=== PATIENT | female | born 1940 | race Caucasian/White ===

== ENCOUNTER 2016-04-06 06:36 | Inpatient (IN) | payer MEDICARE, MEDICAID ==
[2016-04-06] VITALS (16 sets, daily range): BP systolic 85–130; BP diastolic 42–92
[~2016-04-06] VITALS: Ht 172.7 cm; Wt 158.8 kg
[~2016-04-06 06:36] MED LIST: Vancomycin 1gm inj IVPB ONE
[2016-04-06] MEDS ORDERED: Albuterol ud Inhalation HHN SCH (06:45)
[2016-04-06] MEDS ORDERED: Ipratropium 0.02% Inh Soln 2.5ml UD HHN SCH (06:45)
[2016-04-06] MEDS ORDERED: Solu-MEDROL 125mg Inj IVP ONE (06:45)
[2016-04-06] MEDS ORDERED: Vancomycin 1 GM in NS 275 ML IV ONE (06:45)
--- NOTE | 2016-04-06 06:49 | Emergency Room Report ---
History of Present Illness General Chief Complaint: Dyspnea/Respdistress Source: Medical Record, EMS Present Illness HPI Ms. Ovalles, and 75-year-old female brought in from convalescent home. Reportedly admitted therefore failure to thrive, left lower leg cellulitis with respiratory failure, hypercapnia. Per records also has a history of COPD, congestive heart failure, pulmonary hypertension, morbid obesity and weighed greater than 300 pounds. Patient also is history of respiratory failure. Patient herself is unable to provide history, all history from EMS reports hypoxia, patient placed on nonrebreather mask, no IV started in the field, saturations reported 82% with tachypnea reported. Patient herself is unable to provide any review of systems either due to her significant illness. Allergies: Coded Allergies: AMOXICILLIN (Verified Allergy, Mild, RASH, 12/25/09) PENICILLINS (Unverified Allergy, Unknown, 04/06/16) Patient History Limited by: medical condition - severely ill Past Medical History: see triage record, CAD, CHF, AFib, arrhyth, COPD Past Surgical History: unable to obtain Pertinent Family History: unable to obtain Social History: Denies: alcohol use, drug use, smoking Last Menstrual Period: NONE Now: No Reviewed Nursing Documentation: PMH: Agreed Nursing Documentation-PMH Hx Hypertension: Yes - CHRONIA AFIB, ANEMIA, Hx COPD: Yes Hx Diabetes: Yes Review of Systems All Other Systems: limited - patient unable to provide. Physical Exam Vital Signs Date Time Temp Pulse Resp B/P Pulse Ox O2 Delivery O2 Flow Rate FiO2 04/06/16 06:30 107 26 155/133 83 Non-Rebreather 15.0 Sp02 EP Interpretation: abnormal - severe hypoxia General Appearance: severe distress, obese - morbid, Chronically Ill Eyes: bilateral eye PERRL ENT: dry mucus membranes Neck: supple, no carotid bruits, supple/symm/no masses Respiratory: respiratory distress, decreased breath sounds, accessory muscle use, chest symmetrical Cardiovascular #1: tachycardia, irregularly irregular Cardiovascular #2: 2+ carotid (R), 2+ carotid (L) Gastrointestinal: non tender, soft, no mass Musculoskeletal: non-tender Neurologic: responsive - to painful stimuli, loud verbal stimuli, oriented to name Skin: no rash, warm/dry, other - small ulceration on the left leg Procedures Critical Care Time Critical Care Time 66 minutes occurred care time, excluding procedures, based on significant illness, treatment, review of records, this resuscitation, physical history and discussion with consultants and admission to the hospital. Intubation Intubation : Consent: Emergent Time of Intubation: 07:30 Intubation Method: orotracheal Tube Size (cm): 7.0 Medications: Etomidate, Succinylcholine Breath Sounds after Intubation: equal Intubation Complications: no complications Post Intubation Xray: Yes Attempts: One Complications: Other - minor lip laceration Medical Decision Making Diagnostic Impression: Primary Impression: Acute respiratory failure with hypoxia and hypercarbia Additional Impressions: Dyspnea Respiratory distress Hypoxia Respiratory failure Morbid obesity COPD exacerbation Atrial fibrillation with RVR Acute renal failure Hyperkalemia Congestive heart failure with cardiomyopathy and cardiomegaly Pleural effusion ER Course Patient met by myself and the embolus they do to significant illness. Patient transferred with assistance onto [facility] in trauma bay. Placed on monitors and some oxygen provided initially, I placed and EJ as well as IV by nursing and put on nonrebreather, BiPAP with minimal improvement. Basic labs sent out. Patient has significant hypoxia a monitor with a rate of 115 on her rhythm strip and it fibrillation with oxygen saturations around 91% though the patient is poorly controlling her airway and will probably require intubation. The patient has a history of COPD, CHF, as well as recent cellulitis and is institutionalized likely potential pneumonia as well as we'll start empiric antibiotics, COPD treatment with steroids and nebulizers. And support respiratory status aggressively. Patient labs demonstrated significant hypercarbia, acidosis, decision was made to intubate. I contacted anesthesia who came to the bedside for supervision, assistance. Patient was in today with a kaleidoscope without significant palpitations, minor slip laceration, bleeding controlled. Patient' s saturations have improved. Labs reveal significant renal failure, elevated white count, and signs of hyperkalemia, likely congestive heart failure. Patient will need ICU admission at this time with continued resuscitation with IV fluids, antibiotics, nebulizers and some aggressive ventilatory treatment. Patient postintubation x-ray pending. Laboratory Tests Test 04/06/16 06:35 04/06/16 07:00 White Blood Count 15.9 K/UL (4.8-10.8) H Red Blood Count 3.68 M/UL (4.20-5.40) L Hemoglobin 10.1 G/DL (12.0-16.0) L Hematocrit 33.5 % (37.0-47.0) L Mean Corpuscular Volume 91 FL (80-99) Mean Corpuscular Hemoglobin 27.3 PG (27.0-31.0) Mean Corpuscular Hemoglobin Concent 30.0 G/DL (32.0-36.0) L Red Cell Distribution Width 16.4 % (11.6-14.8) H Platelet Count 211 K/UL (150-450) Mean Platelet Volume 6.2 FL (6.5-10.1) L Neutrophils (%) (Auto) 77.9 % (45.0-75.0) H Lymphocytes (%) (Auto) 11.5 % (20.0-45.0) L Monocytes (%) (Auto) 8.9 % (1.0-10.0) Eosinophils (%) (Auto) 0.8 % (0.0-3.0) Basophils (%) (Auto) 0.9 % (0.0-2.0) Prothrombin Time 15.0 SEC (9.30-11.50) H Prothromb Time International Ratio 1.5 (0.9-1.1) H Activated Partial Thromboplast Time 26 SEC (23-33) Sodium Level 141 mEQ/L (135-145) Potassium Level 5.5 mEQ/L (3.4-4.9) H Chloride Level 94 mEQ/L (98-107) L Carbon Dioxide Level 34 mEQ/L (20-30) H Anion Gap 13 (5-15) Blood Urea Nitrogen 65 mg/dL (7-23) H Creatinine 2.4 mg/dL (0.5-0.9) H Estimat Glomerular Filtration Rate mL/min (>60) Glucose Level 117 mg/dL (74-106) H Lactic Acid Level 3.20 mmol/L (0.66-2.22) H Calcium Level 8.5 mg/dL (8.6-10.2) L Total Bilirubin 0.7 mg/dL (0.0-1.2) Aspartate Amino Transf (AST/SGOT) 49 U/L (5-40) H Alanine Aminotransferase (ALT/SGPT) 25 U/L (3-33) Alkaline Phosphatase 91 U/L (35-104) Total Creatine Kinase 79 U/L (26-140) Creatine Kinase MB 2.5 ng/mL (< 3.8) Creatine Kinase MB Relative Index 3.1 Troponin I < 0.30 ng/mL (<=0.30) Total Protein 7.8 g/dL (6.6-8.7) Albumin 3.8 g/dL (3.5-5.2) Globulin 4.0 g/dL Albumin/Globulin Ratio 0.9 (1.0-2.7) L Arterial Blood pH 7.140 (7.350-7.450) Arterial Blood Partial Pressure CO2 122.4 mmHg (35.0-45.0) *H Arterial Blood Partial Pressure O2 85.8 mmHg (75.0-100.0) Arterial Blood HCO3 41.1 mmol/L (22.0-26.0) H Arterial Blood Oxygen Saturation 93.4 % (92.0-98.0) Arterial Blood Base Excess 8.9 Mike Test Positive EKG Diagnostic Results EKG Time: 06:26 Rate: tachycardiac Rhythm: other - irregular rhythm Rhythm Strip Diag. Results Rhythm Strip Time: 06:40 EP Interpretation: yes Rate: 1:15 Rhythm: other - atrial fibrillation Chest X-Ray Diagnostic Results Time: 06:48 EP Interpretation: Yes Findings: other - severely rotated, cardiomegaly with likely pleural effusion and opacification on the RLL Number of Views: 1 Other X-Ray Diagnostic Results Other X-Ray Diagnostic Results : X-Ray Ordered: chest x-ray, post intubation Date: Apr 06, 2016 Time: 08:50 EP Interpretation: Yes Findings: other - slightly improved lung chirinos, ET tube in appropriate position Number of Views: 1 Reevaluation Time: 07:55 Last Vital Signs Date Time Temp Pulse Resp B/P Pulse Ox O2 Delivery O2 Flow Rate FiO2 04/06/16 06:30 107 26 155/133 83 Non-Rebreather 15.0 Status: improved Disposition: ADMITTED INPATIENT Admit Decision Time: 07:55 Condition: Critical Jak Clinton MD Apr 06, 2016 06:49
[2016-04-06 07:09] LABS: ABG PCO2 122.4 mmHg (35.0-45.0)
[2016-04-06 07:10] LABS: ABG ALLEN TEST POSITIVE; ABG BASE EXCESS 8.9
[2016-04-06] MEDS ORDERED: Naloxone 1mg/ml 2ml IVP ONE (07:15)
[2016-04-06 07:17] LABS: INR 1.5 (0.9-1.1)
[2016-04-06 07:19] LABS: ALANINE AMINOTRANSFERASE 25 U/L (3-33); ALBUMIN/GLOBULIN RATIO 0.9 (1.0-2.7); ANION GAP 13 (5-15); ASPARTATE AMINO TRANSFERASE 49 U/L (5-40); CALCIUM 8.5 mg/dL (8.6-10.2); CARBON DIOXIDE 34 mEQ/L (20-30); CHLORIDE 94 mEQ/L (98-107); CREATININE 2.4 mg/dL (0.5-0.9); HEMOLYSIS 3; POTASSIUM 5.5 mEQ/L (3.4-4.9); SODIUM 141 mEQ/L (135-145); TOTAL PROTEIN 7.8 g/dL (6.6-8.7); TROPONIN I < 0.30 ng/mL (<=0.30)
[2016-04-06 07:20] LABS: REFLEX LACTIC ACID YES OR NO YES
[2016-04-06 07:25] LABS: BASOPHILS % (AUTO) 0.9 % (0.0-2.0); EOSINOPHILS % (AUTO) 0.8 % (0.0-3.0); LYMPHOCYTES % (AUTO) 11.5 % (20.0-45.0); MEAN CORPUSCULAR HEMOGLOBIN 27.3 PG (27.0-31.0); MEAN CORPUSCULAR VOLUME 91 FL (80-99); MEAN PLATELET VOLUME 6.2 FL (6.5-10.1); MONOCYTES % (AUTO) 8.9 % (1.0-10.0); NEUTROPHILS % (AUTO) 77.9 % (45.0-75.0); PLATELET COUNT 211 K/UL (150-450); RED BLOOD COUNT 3.68 M/UL (4.20-5.40); RED CELL DISTRIBUTION WIDTH 16.4 % (11.6-14.8); WHITE BLOOD COUNT 15.9 K/UL (4.8-10.8)
[2016-04-06 07:31] LABS: CKMB 2.5 ng/mL (< 3.8)
[2016-04-06] MEDS ORDERED: Succinylcholine 20mg/ml 10ml vial IV ONE (08:00)
[2016-04-06] MEDS ORDERED: Etomidate 40mg/20ml Inj IV ONE ×2 (08:00→14:32)
[2016-04-06] MEDS ORDERED: ROCATROL0.25 MCG ORAL (08:57)
[2016-04-06] MEDS ORDERED: ELIQUIS2.5 MG PO (08:57)
[2016-04-06] MEDS ORDERED: OS-CAL1250 MG ORAL (08:57)
[2016-04-06] MEDS ORDERED: VITAMIN B-122000 MC1 PO (08:58)
[2016-04-06] MEDS ORDERED: VITAMIN B-12500 MCG ORAL (08:58)
[2016-04-06] MEDS ORDERED: FOLIC ACID1 MG ORAL (09:00)
[2016-04-06] MEDS ORDERED: FLUTICASONE PRO16 G1 NASAL (09:00)
[2016-04-06] MEDS ORDERED: FUROSEMIDE40 MG ORAL (09:00)
[2016-04-06] MEDS ORDERED: DOCUSATE SODIU100 MG ORAL (09:00)
[2016-04-06] MEDS ORDERED: PROBIOTIC1 EAC2 PO (09:02)
[2016-04-06] MEDS ORDERED: FEMARA2.5 MG ORAL (09:02)
[2016-04-06] MEDS ORDERED: GABAPENTIN600 MG ORAL (09:02)
[2016-04-06] MEDS ORDERED: PANTOPRAZOLE SO20 MG ORAL (09:03)
[2016-04-06] MEDS ORDERED: LIDOCAINE700 M1 TP (09:03)
[2016-04-06] MEDS ORDERED: MIRALAX17 G2 ORAL (09:04)
[2016-04-06] MEDS ORDERED: VIAGRA50 MG ORAL (09:07)
[2016-04-06] MEDS ORDERED: PRAVASTATIN SOD20 M1 ORAL (09:07)
[2016-04-06] MEDS ORDERED: PREDNISONE10 MG ORAL (09:07)
[2016-04-06 09:22] LABS: ABG ALLEN TEST POSITIVE; ABG PCO2 75.5 mmHg (35.0-45.0)
[2016-04-06 09:34] LABS: APPEARANCE,URINE SLIGHTLY CLOUDY; KETONES,URINE 1+ (NEGATIVE); LEUKOCYTE ESTERASE ,URINE 1+ (NEGATIVE); NITRITE,URINE NEGATIVE (NEGATIVE); PH,URINE 5 (4.5-8.0); PROTEIN,URINE 3+ (NEGATIVE); UROBILINOGEN,URINE 4 MG/DL (0.0-1.0)
[2016-04-06 09:55] LABS: AMORPHOUS SEDIMENT,UR FEW /LPF; BACTERIA,URINE FEW /HPF; ICTOTEST NEGATIVE; SQUAMOUS EPITHELIAL CELL,UR FEW /LPF (NONE/OCC)
--- NOTE | 2016-04-06 10:05 | History & Physical ---
History and Physical History & Physicial [id number] Angeline Swenson NP Apr 06, 2016 10:04
[2016-04-06] MEDS ORDERED: DuoNeb 0.5-3(2.5)mg/3ml neb HHN PRN ×2 (10:30)
[2016-04-06] MEDS ORDERED: LORazepam Inj 2mg/ml 1ml IV PRN (10:30)
[2016-04-06] MEDS ORDERED: HYDROmorphone 1mg/ml Carpuject IVP PRN (10:30)
[2016-04-06] MEDS ORDERED: D5 1/2NS 1,000 ML IV SCH (10:30)
[2016-04-06] MEDS ORDERED: Acetaminophen 650 MG SUPP RECTAL PRN ×2 (10:30→10:52)
--- NOTE | 2016-04-06 10:34 | Consultation ---
Consult Note Consult Note Dic # [id number] LINDSEY HILL M.D. Apr 06, 2016 10:34
[2016-04-06] MEDS ORDERED: Morphine Sulfate 4mg/ml Inj IVP PRN (11:00)
[2016-04-06] MEDS ORDERED: Miralax 17gm pkt ORAL PRN (11:00)
[2016-04-06] MEDS: Pantoprazole Inj IV SCH (11:19)
[2016-04-06] MEDS: NovoLOG Insulin Flexpen SUBQ SCH ×3 (11:26→21:09)
[2016-04-06] MEDS ORDERED: NovoLOG Insulin Flexpen SUBQ SCH (11:30)
[2016-04-06 11:42] LABS: LACTATE DEHYDROGENASE 345 U/L (135-230); URIC ACID 9.7 mg/dL (3.0-7.5)
[2016-04-06 11:49] LABS: ANION GAP 19 (5-15); CALCIUM 8.5 mg/dL (8.6-10.2); CARBON DIOXIDE 28 mEQ/L (20-30); CHLORIDE 92 mEQ/L (98-107); CREATININE 2.3 mg/dL (0.5-0.9); HEMOLYSIS 11; PHOSPHORUS 5.5 mg/dL (2.5-4.8); POTASSIUM 5.7 mEQ/L (3.4-4.9); SODIUM 139 mEQ/L (135-145)
[2016-04-06 11:54] LABS: FREE T3 1.5 pg/mL (2.3-4.2)
[2016-04-06] MEDS ORDERED: Aztreonam Inj 1 GM in D5W 55 ML IVPB SCH (12:00)
[2016-04-06 12:09] LABS: HEMOLYSIS 24; IRON 56 ug/dL (37-145); TOTAL IRON BINDING CAPACITY 255 ug/dL (250-400)
--- NOTE | 2016-04-06 12:10 | Diagnostic Imaging Report ---
Indication: Tube placement Comparison: None A single view chest radiograph was obtained. Findings: Endotracheal tube is 2 CM above the trever in good position. The heart is enlarged. Pulmonary vascularity is prominent but has improved compared to 2 hours earlier. There may be an infiltrate or effusion at the left lung base with obscuring of the left heart border and diaphragm. Impression: Endotracheal tube in good position
--- NOTE | 2016-04-06 12:10 | Diagnostic Imaging Report ---
Indication: Chest Pain Comparison: None A single view chest radiograph was obtained. Findings: There is enlargement of the heart and vascular prominence/interstitial edema are present. Exam is limited by rotation. Impression: Congestive heart failure
[2016-04-06 12:30] LABS: RETICULOCYTE COUNT 2.2 % (0.0-2.0)
[2016-04-06 12:33] LABS: ANISOCYTOSIS 1+; BAND NEUTROPHILS % (MANUAL) 0 % (0-8); BASOPHILS % (MANUAL) 0 % (0-2); EOSINOPHILS % (MANUAL) 0 % (0-3); LYMPHOCYTES % (MANUAL) 12 % (20-45); NEUTROPHILS % (MANUAL) 82 % (45-75); NUCLEATED RED BLOOD CELLS 2 /100 WBC; PLATELET ESTIMATE ADEQUATE; PLATELET MORPHOLOGY NORMAL; TOTAL CELLS COUNTED 100
[2016-04-06 12:34] LABS: HYPOCHROMASIA 1+; POLYCHROMASIA 1+
[2016-04-06 12:39] LABS: PATH BLOOD SMEAR/OMC SENT TO PATHOLOGIST
[2016-04-06 12:42] LABS: ERYTHROCYTE SEDIMENTATION RATE 60 MM/HR (0-30)
[2016-04-06 13:41] LABS: KETONES,URINE NEGATIVE (NEGATIVE); LEUKOCYTE ESTERASE ,URINE 1+ (NEGATIVE); NITRITE,URINE NEGATIVE (NEGATIVE); PH,URINE 5 (4.5-8.0); PROTEIN,URINE 2+ (NEGATIVE); UROBILINOGEN,URINE 1 MG/DL (0.0-1.0)
[2016-04-06 13:42] LABS: APPEARANCE,URINE CLEAR
--- NOTE | 2016-04-06 13:44 | Consultation ---
Consult Note Consult Note asked to evaluate for renal failure- seen in ICU Ms. Ovalles, and 75-year-old female brought in from convalescent home. Reportedly admitted therefore failure to thrive, left lower leg cellulitis with respiratory failure, hypercapnia. Per records also has a history of COPD, congestive heart failure, pulmonary hypertension, morbid obesity and weighed greater than 300 pounds. Patient also is history of respiratory failure. Patient herself is unable to provide history, all history from EMS reports hypoxia, patient placed on nonrebreather mask, no IV started in the field, saturations reported 82% with tachypnea reported. Patient herself is unable to provide any review of systems either due to her significant illness. Allergies: Coded Allergies: AMOXICILLIN (Verified Allergy, Mild, RASH, 12/25/09) PENICILLINS (Unverified Allergy, Unknown, 04/06/16) Past Medical History: see triage record, CAD, CHF, AFib, arrhyth, COPD Hx Hypertension: Yes - CHRONIA AFIB, ANEMIA, Hx COPD: Yes Hx Diabetes: Yes Vital Signs Date Time Temp Pulse Resp B/P Pulse Ox O2 Delivery O2 Flow Rate FiO2 04/06/16 06:30 107 26 155/133 83 Non-Rebreather 15.0 Patient examined in ICU Sp02 EP Interpretation: abnormal - severe hypoxia General Appearance: severe distress, obese - morbid, Chronically Ill Eyes: bilateral eye PERRL ENT: dry mucus membranes Neck: supple, no carotid bruits, supple/symm/no masses Respiratory: respiratory distress, decreased breath sounds, accessory muscle use, chest symmetrical Cardiovascular #1: tachycardia, irregularly irregular Cardiovascular #2: 2+ carotid (R), 2+ carotid (L) Gastrointestinal: non tender, soft, no mass Musculoskeletal: non-tender Neurologic: responsive - to painful stimuli, loud verbal stimuli, oriented to name Skin: no rash, warm/dry, other - small ulceration on the left leg . Assessment/Plan status: Acute renal failure- Acute Respiratory Failure Anemia Morbid Obesity CHF ? Sepsis Plan: Optimize cardiac and pulmonary status- Avoid Nephrotoxics- monitor renal parameters Urine studies- Keep BP over 100 syst Antibiotics COURTNEY LOPEZ Apr 06, 2016 13:44
[2016-04-06 13:58] LABS: BACTERIA,URINE FEW /HPF; SQUAMOUS EPITHELIAL CELL,UR FEW /LPF (NONE/OCC)
[2016-04-06] MEDS ORDERED: Heparin 5000 units/ml inj SUBQ SCH (14:00)
[2016-04-06] MEDS ORDERED: Succinylcholine 20mg/ml 10ml vial ONE (14:32)
[2016-04-06] MEDS ORDERED: Lidocaine 1% Plain 30 ml INJ ONE (15:15)
[2016-04-06] MEDS ORDERED: Sodium Bicarbonate 8.4% 50ml Inj IV ONE (15:15)
[2016-04-06] MEDS ORDERED: Heparin 2000 units/Ns 1000ml INJ ONE (15:15)
--- NOTE | 2016-04-06 15:17 | Cardiac Electrophysiology PN ---
Subjective Subjective [id number] Objective Last 24 Hour Vital Signs Date Time Temp Pulse Resp B/P Pulse Ox O2 Delivery O2 Flow Rate FiO2 04/06/16 14:00 86 16 112/51 100 Mechanical Ventilator 100 04/06/16 13:40 80 04/06/16 13:20 86 16 80 04/06/16 13:00 95 18 122/49 100 Mechanical Ventilator 100 04/06/16 12:00 89 04/06/16 12:00 97.6 86 14 109/92 100 Mechanical Ventilator 100 04/06/16 12:00 90 04/06/16 11:12 87 16 90 04/06/16 11:00 95 16 120/87 100 Mechanical Ventilator 100 04/06/16 10:26 100 04/06/16 10:22 97.8 101 16 102/68 100 Mechanical Ventilator 100 04/06/16 10:15 18 04/06/16 09:31 109 17 102/68 95 Mechanical Ventilator 15.0 100 04/06/16 09:13 109 17 102/68 95 Mechanical Ventilator 100 04/06/16 08:52 114 17 100 04/06/16 08:40 101 16 Mechanical Ventilator 100 04/06/16 08:14 105 17 106/64 98 Mechanical Ventilator 100 04/06/16 07:55 16 04/06/16 07:47 119 16 100 04/06/16 07:13 100 04/06/16 07:02 109 24 124/57 95 Bi-pap 15.0 100 04/06/16 06:50 104 24 94 Bi-pap 100 04/06/16 06:41 105 24 94 Facial 100 04/06/16 06:30 107 26 155/133 83 Non-Rebreather 15.0 Laboratory Tests Test 04/06/16 06:35 04/06/16 06:38 04/06/16 07:00 04/06/16 09:00 White Blood Count 15.9 K/UL (4.8-10.8) H Red Blood Count 3.68 M/UL (4.20-5.40) L Hemoglobin 10.1 G/DL (12.0-16.0) L Hematocrit 33.5 % (37.0-47.0) L Mean Corpuscular Volume 91 FL (80-99) Mean Corpuscular Hemoglobin 27.3 PG (27.0-31.0) Mean Corpuscular Hemoglobin Concent 30.0 G/DL (32.0-36.0) L Red Cell Distribution Width 16.4 % (11.6-14.8) H Platelet Count 211 K/UL (150-450) Mean Platelet Volume 6.2 FL (6.5-10.1) L Neutrophils (%) (Auto) 77.9 % (45.0-75.0) H Lymphocytes (%) (Auto) 11.5 % (20.0-45.0) L Monocytes (%) (Auto) 8.9 % (1.0-10.0) Eosinophils (%) (Auto) 0.8 % (0.0-3.0) Basophils (%) (Auto) 0.9 % (0.0-2.0) Differential Total Cells Counted 100 Neutrophils % (Manual) 82 % (45-75) H Lymphocytes % (Manual) 12 % (20-45) L Monocytes % (Manual) 6 % (1-10) Eosinophils % (Manual) 0 % (0-3) Basophils % (Manual) 0 % (0-2) Band Neutrophils 0 % (0-8) Nucleated Red Blood Cells 2 /100 WBC Platelet Estimate Adequate Platelet Morphology Normal Polychromasia 1+ Hypochromasia 1+ Anisocytosis 1+ Erythrocyte Sedimentation Rate 60 MM/HR (0-30) H Reticulocyte Count 2.2 % (0.0-2.0) H Prothrombin Time 15.0 SEC (9.30-11.50) H Prothromb Time International Ratio 1.5 (0.9-1.1) H Activated Partial Thromboplast Time 26 SEC (23-33) Sodium Level 139 mEQ/L (135-145) Potassium Level 5.7 mEQ/L (3.4-4.9) H Chloride Level 92 mEQ/L (98-107) L Carbon Dioxide Level 28 mEQ/L (20-30) Anion Gap 19 (5-15) H Blood Urea Nitrogen 64 mg/dL (7-23) H Creatinine 2.3 mg/dL (0.5-0.9) H Estimat Glomerular Filtration Rate mL/min (>60) Glucose Level 113 mg/dL (74-106) H Lactic Acid Level 3.20 mmol/L (0.66-2.22) H 2.10 mmol/L (0.66-2.22) Calcium Level 8.5 mg/dL (8.6-10.2) L Phosphorus Level 5.5 mg/dL (2.5-4.8) H Total Bilirubin 0.7 mg/dL (0.0-1.2) Aspartate Amino Transf (AST/SGOT) 49 U/L (5-40) H Alanine Aminotransferase (ALT/SGPT) 25 U/L (3-33) Alkaline Phosphatase 91 U/L (35-104) Total Creatine Kinase 79 U/L (26-140) Creatine Kinase MB 2.5 ng/mL (< 3.8) Creatine Kinase MB Relative Index 3.1 Troponin I < 0.30 ng/mL (<=0.30) Total Protein 7.8 g/dL (6.6-8.7) Albumin 3.8 g/dL (3.5-5.2) Globulin 4.0 g/dL Albumin/Globulin Ratio 0.9 (1.0-2.7) L D-Dimer 2223 ng/mL (<500) H Uric Acid 9.7 mg/dL (3.0-7.5) H Magnesium Level 2.0 mg/dL (1.7-2.5) Iron Level 56 ug/dL (37-145) Total Iron Binding Capacity 255 ug/dL (250-400) Percent Iron Saturation 22 % (15-50) Unsaturated Iron Binding 199 ug/dL (112-346) Lactate Dehydrogenase 345 U/L (135-230) H Pro-B-Type Natriuretic Peptide 7699 pg/mL (0-125) H Triglycerides Level 105 mg/dL (< 150) Carcinoembryonic Antigen 5.8 ng/mL H Vitamin B12 Level > 2000 pg/mL (211-946) H Thyroid Stimulating Hormone (TSH) 3.900 uIU/mL (0.300-4.500) Free Thyroxine 0.98 ng/dL (0.86-1.85) Free Triiodothyronine 1.5 pg/mL (2.3-4.2) L Arterial Blood pH 7.140 (7.350-7.450) Arterial Blood Partial Pressure CO2 122.4 mmHg (35.0-45.0) *H Arterial Blood Partial Pressure O2 85.8 mmHg (75.0-100.0) Arterial Blood HCO3 41.1 mmol/L (22.0-26.0) H Arterial Blood Oxygen Saturation 93.4 % (92.0-98.0) Arterial Blood Base Excess 8.9 Mike Test Positive Urine Color Yellow Urine Appearance Slightly cloudy Urine pH 5 (4.5-8.0) Urine Specific [place] 1.020 (1.005-1.035) Urine Protein 3+ (NEGATIVE) H Urine Glucose (UA) Negative (NEGATIVE) Urine Ketones 1+ (NEGATIVE) H Urine Occult Blood 3+ (NEGATIVE) H Urine Nitrite Negative (NEGATIVE) Urine Bilirubin 1+ (NEGATIVE) H Urine Ictotest Negative Urine Urobilinogen 4 MG/DL (0.0-1.0) H Urine Leukocyte Esterase 1+ (NEGATIVE) H Urine RBC 2-4 /HPF (0 - 2) H Urine WBC 2-4 /HPF (0 - 2) Urine Squamous Epithelial Cells Few /LPF (NONE/OCC) Urine Amorphous Sediment Few /LPF (NONE) H Urine Bacteria Few /HPF (NONE) Test 04/06/16 09:15 04/06/16 11:08 04/06/16 12:55 Arterial Blood pH 7.230 (7.350-7.450) Arterial Blood Partial Pressure CO2 75.5 mmHg (35.0-45.0) *H Arterial Blood Partial Pressure O2 97.7 mmHg (75.0-100.0) Arterial Blood HCO3 31.0 mmol/L (22.0-26.0) H Arterial Blood Oxygen Saturation 95.9 % (92.0-98.0) Arterial Blood Base Excess 2.0 Mike Test Positive Plasma/Serum Osmolality Pending Folate Pending Cortisol Pending Urine Color Yellow Urine Appearance Clear Urine pH 5 (4.5-8.0) Urine Specific [place] 1.015 (1.005-1.035) Urine Protein 2+ (NEGATIVE) H Urine Glucose (UA) Negative (NEGATIVE) Urine Ketones Negative (NEGATIVE) Urine Occult Blood 4+ (NEGATIVE) H Urine Nitrite Negative (NEGATIVE) Urine Bilirubin Negative (NEGATIVE) Urine Urobilinogen 1 MG/DL (0.0-1.0) H Urine Leukocyte Esterase 1+ (NEGATIVE) H Urine RBC 5-10 /HPF (0 - 2) H Urine WBC 2-4 /HPF (0 - 2) Urine Squamous Epithelial Cells Few /LPF (NONE/OCC) Urine Bacteria Few /HPF (NONE) Urine Eosinophils None seen Urine Osmolality Pending Urine Random Sodium 36 mmol/L Urine Random Chloride 60 mmol/L Urine Potassium Timed 54 mmol/L JOHN NUÑEZ Apr 06, 2016 15:17
[2016-04-06] MEDS ORDERED: Digoxin 0.5mg/2ml Inj IVP ONE (15:30)
[2016-04-06] MEDS: D5NS 1,000 ML IV SCH (16:18)
--- NOTE | 2016-04-06 16:22 | Wound Care Consultation ---
Wound Assessment Wound Assessment : Wound Present on Admission: Yes New Wound: No Status Change of Wound: No Wound Location Body Site Modif: left, lower, lateral Wound Location Body Site: leg Wound Type: traumatic injury Joya Test: Does not Joya Edema Degree: 4+ marked deep indentation Traumatic Injury Wounds: Skin Tear Wound Thickness: Partial Thickness Wound Length: 1.0 Wound Width: 1.5 Wound Depth: 0.1 Percent of Wound [place]/Red: 100 Wound Drainage Description: Serous, Serosanguineous Wound Drainage Amount: Scant Wound Drainage Odor: None/Absent Tissue Surrounding Wound: Edematous Wound General Appearance: Reddened Wound Comment #1 Skin tear on left lower lateral leg Recommendation -Cleanse with saline pat dry apply adaptic cover with bordered gauze daily and PRN soiled/dislodged -Elevate both legs -Offload both heels -Turn and reposition -Keep clean and dry -Optimize nutrition -Assess and f/u accordingly for any changes JERICA SANDS RN Apr 06, 2016 16:22
--- NOTE | 2016-04-06 16:28 | HX and Phyl Repo 2 Sig ---
DATE OF ADMISSION: 04/06/2016 CHIEF COMPLAINT: Respiratory failure, respiratory distress from group home. HISTORY OF PRESENT ILLNESS: The patient is a 75-year-old female, who is a resident of [facility], was transferred via EMS to [facility] for complaints of respiratory distress. History was obtained from review of medical records as the patient currently unable to give any history. She has a past medical history significant for morbid obesity, respiratory failure, hypercapnia on BiPAP at group home, history of congestive heart failure, pulmonary hypertension, and left lower leg cellulitis. She was recently admitted to [facility] and was transferred to [facility] for rehabilitation. Per report, the patient was hypoxemic, O2 saturation down to 82%, tachypneic and tachycardic. The patient was transferred to [facility] where on evaluation laboratories showed leukocytosis. Chest x-ray showed cardiomegaly with pleural effusion and opacification of the right lower lobe. She was initially placed on BiPAP however continued to be on respiratory distress. ABG showed respiratory acidosis with hypercapnia and the patient was orally intubated. She was in rapid atrial fibrillation at ED, rate 110-120s. The patient was seen at emergency room, awaiting transfer to ICU. CODE STATUS: She came in with a POLST that states full code. ALLERGIES: To amoxicillin and penicillin. PAST MEDICAL HISTORY: As stated above. SOCIAL HISTORY: The patient has a domestic partner, Mr. Sean Zavala, phone number [phone]. REVIEW OF SYSTEMS: Unable to be determined. PHYSICAL EXAMINATION: VITAL SIGNS: On arrival to emergency department blood pressure 155/133, respiratory rate 26, pulse 107, 83% on nonrebreather mask. GENERAL: The patient is morbidly obese. She is sedated in ED. RESPIRATORY: Lungs have diffuse rhonchi but lung sounds are equal on bilateral lung chirinos. CARDIOVASCULAR: S1 and S2 irregularly irregular. ABDOMEN: Flabby with positive bowel sounds. GENITOURINARY: She has an indwelling [place] catheter. External labia are swollen. EXTREMITIES: No clubbing. No cyanosis. There is a small skin tear on the left christian although both lower extremities are nonerythematous and not warm. NEUROLOGIC: Unable to be fully examined. LABORATORY AND DIAGNOSTIC DATA: WBC 15.9, hemoglobin 10, hematocrit 33.5, and platelet is 211,000. Sodium 141, potassium 5.5, BUN 65, creatinine 2.4. Lactic acid 3.2. AST 49 and ALT 25. Troponin is negative. INR 1.5. Urine WBC 2 to 4, urine RBC 2 to 4 with 1+ leukocyte esterase, 3+ protein, and 1+ ketone. ASSESSMENT: 1. Acute hypoxemic and hypercapnic respiratory failure requiring intubation. 2. Acute kidney injury. 3. Morbid obesity. 4. Hyperkalemia. 5. Diabetes mellitus. 6. Congestive heart failure. 7. Chronic obstructive pulmonary disease. 8. Pulmonary hypertension. 9. Atrial fibrillation, in RVR. PLAN: Admit to ICU and start on IV hydration. The patient is orally intubated. Dr. Rene, pulmonary/Critical Care consult. Insert NG tube. Aspiration precaution. Dr. Mary, Cardiology consult. Dr. Milan for evaluation of leukocytosis and antibiotic management. Dr. Cummings, Nephrology consult. Continue with Accu-Cheks with sliding scale insulin. Stable Cleaner evaluation. Initiate wound care. Manny Nolan M.D. Angeline Swenson N.P. DR: Lore JOB#: [id number] CC: LOBO
[2016-04-06] MEDS ORDERED: Aztreonam Inj 0.5 GM in D5W 55 ML IVPB SCH (17:17)
--- NOTE | 2016-04-06 18:08 | Consultation ---
DATE OF CONSULTATION: 04/06/2016 INFECTIOUS DISEASES CONSULTATION CONSULTING PHYSICIAN: Luca Milan M.D. REFERRING PHYSICIAN: Elidia Rene M.D. REASON FOR CONSULTATION: Evaluation of the patient for sepsis and antibiotic management. HISTORY OF PRESENT ILLNESS: The patient is a 75-year-old female with multiple medical problems who was admitted to this medical center due to shortness of breath, the patient did not respond to BiPAP and had to be intubated. Currently the patient admitted to the intensive care unit. Blood pressure is stable and there has been concern for pneumonia and sepsis. An infectious disease consultation requested for further evaluation of the patient and antibiotic management. PAST MEDICAL HISTORY: Significant for: 1. Obesity. 2. History of lower extremity cellulitis in the past. 3. History of congestive heart failure. 4. Hypertension. 5. Chronic obstructive pulmonary disease. 6. GERD. 7. Diabetes. FAMILY HISTORY: Noncontributory. ALLERGIES: Amoxicillin and penicillin. REVIEW OF SYSTEMS: Unobtainable. PHYSICAL EXAMINATION: VITAL SIGNS: Temperature 97.8, blood pressure 102/68, pulse 100, respiratory rate 16. HEENT: HEENT: Mild pale conjunctivae. No icterus. NECK: No lymphadenopathy. CHEST: Coarse breathing sounds. HEART: S1 and S2. ABDOMEN: Soft and obese. EXTREMITIES: No cyanosis. NEUROLOGIC: . SKIN: No rash. LABORATORY AND DIAGNOSTIC DATA: White blood cells 15.9, hemoglobin 10, platelets 211,000. UA unremarkable. BUN 65, creatinine 2.4. ALT, AST, alkaline phosphatase are unremarkable. Chest x-ray is pending. ASSESSMENT: The patient is a 75-year-old female with multiple medical problems, who was admitted to this medical center with shortness of breath. The patient may have underlying chronic obstructive pulmonary disease exacerbation, also healthcare-associated pneumonia is in differential. In view of the patient's condition, we will start the patient on broad-spectrum antibiotics until we will get further information from the cultures and we get final report on the chest x-ray. The patient also has renal insufficiency, leukocytosis, due to sepsis and acute . PLAN: 1. We will start the patient on Levaquin, vancomycin, and Azactam. 2. Monitor CBC. 3. Monitor BMP. 4. We send cultures (blood, sputum, and urine). 5. Monitor renal function. 6. Monitor CBC. 7. Monitor chest x-ray. 8. Continue ventilator support. Based on the patient's clinical course and labs, we will do further recommendations. Thank you, Dr. Rene, for allowing me to participate in the care of this patient. I will follow the patient with you during this hospitalization. Luca Milan M.D. DR: Eric JOB#: [id number] CC:
[2016-04-06] MEDS: LORazepam Inj 2mg/ml 1ml IV PRN (18:59)
[2016-04-06] MEDS: Heparin 5000 units/ml inj SUBQ SCH (21:10)
[2016-04-06] MEDS: Aztreonam Inj 0.5 GM in D5W 55 ML IVPB SCH (22:06)
--- NOTE | 2016-04-06 23:58 | Consultation ---
DATE OF CONSULTATION: 04/06/2016 CARDIOLOGY CONSULTATION CONSULTING PHYSICIAN: Alfred Mary M.D. REFERRING PHYSICIAN: 1. Manny Nolan M.D. 2. Elidia Rene M.D. REASON FOR CONSULTATION: Atrial fibrillation, rapid ventricular response. HISTORY OF PRESENT ILLNESS: The patient is a 75-year-old morbidly obese lady with a history of hypertension and congestive heart failure and morbidly obese. She has a history of pulmonary hypertension and left lower extremity cellulitis, who was brought to the emergency room with increasing shortness of breath, failure to thrive, left lower leg cellulitis, and hypercapnia. The patient was placed on a non-rebreather mask in the emergency room. Saturation was only 82%. The patient was unable to provide any information. Subsequently, the patient was intubated and was brought to the intensive care unit. REVIEW OF SYSTEMS: Cannot be obtained. PAST MEDICAL HISTORY: 1. Hypertension. 2. Chronic atrial fibrillation. 3. Chronic obstructive pulmonary disease. 4. Diabetes. 5. Morbid obesity. FAMILY HISTORY: Noncontributory. ALLERGIES: She is allergic to amoxicillin and penicillin. SOCIAL HISTORY: The patient lives in a snf. Does not smoke or drink alcohol. PHYSICAL EXAMINATION: VITAL SIGNS: Blood pressure is now 112/51, pulse is 80, respirations 16, temperature is 102, and pulse in the emergency room was 140s. HEAD AND NECK: She is orally intubated with NG tube. LUNGS: Coarse rhonchi bilaterally. CARDIOVASCULAR: Shows irregularly irregular S1 and S2 with no gallop or murmur. ABDOMEN: Morbidly obese. EXTREMITIES: There is 1+ pitting edema. LABORATORY AND DIAGNOSTIC DATA: Her labs show a white count of 15.9, hemoglobin 10.9, hematocrit 33.5, and platelet count 211,000. ESR is 60. Sodium 139, potassium 5.7, BUN of 64, creatinine 2.3, and glucose of 113. Troponin is negative. EKG showed atrial fibrillation with rapid ventricular response and old septal infarct. ASSESSMENT AND PLAN: 1. Respiratory failure, likely due to patient's chronic obstructive pulmonary disease. The patient also is volume overloaded in view of renal failure. Her BNP is 7700. We will give the patient intravenous Lasix and keep the patient on the ventilator. I did a stat echocardiogram for evaluation of ejection fraction and wall motion abnormality. Actually, the preliminary echocardiogram report showed ejection fraction of 55% to 60%. 2. Atrial fibrillation, rapid ventricular response. Heart rate is slightly better. Avoid beta-blockers. Give the patient a single dose of 0.5 mg of IV digoxin. We will check the digoxin level tomorrow, and depending on that, we will adjust the medications further. I will start the patient also on Cardizem 30 mg NG three times a day since the blood pressure is still more than 120. 3. Respiratory failure, currently on the ventilator. 4. Lower extremity cellulitis, on IV antibiotics with vancomycin and aztreonam. 5. Morbid obesity. Thank you very much for allowing me to participate in the care of this patient. Please do not hesitate to contact me for any questions regarding my evaluation. Alfred Mary M.D. DR: AJ JOB#: [id number] CC:
[2016-04-07] VITALS (25 sets, daily range): BP systolic 91–138; BP diastolic 37–74
[2016-04-07] MEDS: LORazepam Inj 2mg/ml 1ml IV PRN ×2 (01:29→12:05)
[2016-04-07 05:56] LABS: BASOPHILS % (AUTO) 0.5 % (0.0-2.0); EOSINOPHILS % (AUTO) 0.1 % (0.0-3.0); LYMPHOCYTES % (AUTO) 7.3 % (20.0-45.0); MEAN CORPUSCULAR HEMOGLOBIN 27.5 PG (27.0-31.0); MEAN CORPUSCULAR HGB CONC 31.1 G/DL (32.0-36.0); MEAN CORPUSCULAR VOLUME 89 FL (80-99); MEAN PLATELET VOLUME 6.3 FL (6.5-10.1); MONOCYTES % (AUTO) 7.7 % (1.0-10.0); NEUTROPHILS % (AUTO) 84.4 % (45.0-75.0); PLATELET COUNT 169 K/UL (150-450); WHITE BLOOD COUNT 12.3 K/UL (4.8-10.8)
[2016-04-07] MEDS: Aztreonam Inj 0.5 GM in D5W 55 ML IVPB SCH ×3 (06:02→22:43)
[2016-04-07] MEDS: Vancomycin 750mg/D5W 275ml IVPB SCH ×2 (06:02)
[2016-04-07] MEDS: NovoLOG Insulin Flexpen SUBQ SCH ×4 (06:08→20:50)
[2016-04-07 06:35] LABS: INR 1.5 (0.9-1.1); PROTHROMBIN TIME 15.7 SEC (9.30-11.50)
[2016-04-07 06:36] LABS: MAGNESIUM 1.8 mg/dL (1.7-2.5); PHOSPHORUS 3.7 mg/dL (2.5-4.8)
[2016-04-07 07:00] LABS: HEMOGLOBIN A1C 5.7 % (< 6.0)
[2016-04-07 07:04] LABS: ALANINE AMINOTRANSFERASE 24 U/L (3-33); ANION GAP 10 (5-15); ASPARTATE AMINO TRANSFERASE 35 U/L (5-40); CARBON DIOXIDE 35 mEQ/L (20-30); CHLORIDE 96 mEQ/L (98-107); CHOLESTEROL 90 mg/dL (< 200); CHOLESTEROL/HDL RATIO 2.4 (3.3-4.4); CREATININE 2.2 mg/dL (0.5-0.9); HEMOLYSIS 2; LDL CHOLESTEROL (CALC.) 30 mg/dL (60-99); POTASSIUM 5.3 mEQ/L (3.4-4.9); SODIUM 141 mEQ/L (135-145); TOTAL PROTEIN 6.4 g/dL (6.6-8.7); URIC ACID 9.6 mg/dL (3.0-7.5)
[2016-04-07 07:32] LABS: TROPONIN I < 0.30 ng/mL (<=0.30)
--- NOTE | 2016-04-07 07:55 | Diagnostic Imaging Report ---
Indication: Abdominal pain Comparison: None Single view of the abdomen obtained Exam is limited by body habitus. Bowel gas pattern is nonspecific. Bones are osteopenic. Cardiomegaly is present. There is a retrocardiac pulmonary density noted. Impression: Limited evaluation due to body size. No acute findings appreciated in the abdomen. Suggestion of left basilar pneumonia or atelectasis
[2016-04-07 08:42] LABS: CORTISOL LC 34.2 ug/dL (.)
[2016-04-07] MEDS: Heparin 5000 units/ml inj SUBQ SCH ×2 (08:51→20:51)
[2016-04-07] MEDS: Pantoprazole Inj IV SCH (08:51)
[2016-04-07] MEDS ORDERED: Pantoprazole Inj IV SCH (09:00)
--- NOTE | 2016-04-07 09:34 | Diagnostic Imaging Report ---
Indication:Elevated Bun and Creatinine. Technique: Grayscale and duplex Doppler imaging of the kidneys performed. Comparison: None Findings: Study limited by body habitus. Rowland catheter is present. The right kidney is just under 12 cm in length. The left kidney is just over 9 cm in length. There is no hydronephrosis obviously demonstrated. IVC is partially seen and grossly unremarkable. The bladder is not visualized. Impression: Limited evaluation due to body habitus. No gross abnormalities
[2016-04-07 10:58] LABS: TROPONIN I < 0.30 ng/mL (<=0.30)
[2016-04-07] MEDS: D5NS 1,000 ML IV SCH (11:04)
--- NOTE | 2016-04-07 11:34 | Consultation ---
History of Present Illness General Date patient seen: Apr 06, 2016 Time patient seen: 10:00 Chief Complaint: Dyspnea/Respdistress Referring physician: Dr. Crane Reason for Consultation: ICU management of ICU Present Illness HPI 75-year-old female with hx of COPD, CHF, Pulmonary hypertension brought in from convalescent home with CC of failure to thrive, left lower leg cellulitis with respiratory failure, hypercapnia. Patient was unable to provide history, all history from EMS reports hypoxia, patient placed on nonrebreather mask, no IV started in the field, saturations reported 82% with tachypnea reported. Pt was intubated in ER and transferred to ICU for further treatment. Pt looks comfortable on vent.. Allergies: Coded Allergies: AMOXICILLIN (Verified Allergy, Mild, RASH, 12/25/09) PENICILLINS (Unverified Allergy, Unknown, 04/06/16) Medication History Scheduled Apixaban (Eliquis), 2.5 MG PO BID, (Reported) Calcitriol (Calcitriol), 0.25 MCG ORAL DAILY, (Reported) Calcium Carbonate (Calcium Carbonate), 1,250 MG ORAL BID, (Reported) Cyanocobalamin (Vitamin B-12)* (Vitamin B-12*), 3,000 MCG ORAL DAILY, (Reported) Docusate Sodium* (Docusate Sodium*), 100 MG ORAL TWICE A DAY, (Reported) Fluticasone Propionate* (Fluticasone Propionate*), 1 SPRAY NASAL DAILY, ( Reported) Folic Acid* (Folic Acid*), 1 MG ORAL DAILY, (Reported) Furosemide* (Lasix*), 40 MG ORAL TWICE A DAY, (Reported) Gabapentin* (Gabapentin*), 600 MG ORAL TWICE A DAY, (Reported) Lactobacillus Acidophilus (Probiotic), 1 EACH PO DAILY, (Reported) Letrozole (Femara), 2.5 MG ORAL DAILY, (Reported) Lidocaine (Lidocaine), 700 MG TP EVERY 24 HOURS, (Reported) Pantoprazole (Pantoprazole), 40 MG ORAL DAILY, (Reported) Polyethylene Glycol 3350* (Miralax*), 17 GM ORAL DAILY, (Reported) Pravastatin Sod* (Pravastatin Sod*), 20 MG ORAL BEDTIME, (Reported) Prednisone* (Prednisone*), 10 MG ORAL DAILY, (Reported) Sildenafil Citrate (Viagra), 60 MG ORAL TID, (Reported) Patient History Healthcare decision maker Resuscitation status Full Code Advanced Directive on File Past Medical/Surgical History Past Medical/Surgical History: (1) Congestive heart failure with cardiomyopathy and cardiomegaly (2) Atrial fibrillation with RVR (3) Morbid obesity Review of Systems All Other Systems: negative except mentioned in HPI Physical Exam General Appearance: WD/WN Lines, tubes and drains: peripheral HEENT: normocephalic, atraumatic Neck: non-tender, normal alignment Respiratory/Chest: rhonchi - bilaterally Breasts: no masses Cardiovascular/Chest: normal peripheral pulses Abdomen: normal bowel sounds, non tender Genitourinary/Rectal: normal genital exam Extremities: normal range of motion Skin Exam: normal pigmentation Neurologic: top cleaner II-XII grossly normal Last 24 Hour Vital Signs Date Time Temp Pulse Resp B/P Pulse Ox O2 Delivery O2 Flow Rate FiO2 04/07/16 10:56 102 20 70 04/07/16 09:19 85 18 70 04/07/16 09:00 89 22 110/58 100 Mechanical Ventilator 70 04/07/16 08:00 70 04/07/16 08:00 91 04/07/16 08:00 98.0 89 14 98/50 100 Mechanical Ventilator 70 04/07/16 07:00 92 15 109/55 99 Mechanical Ventilator 70 04/07/16 06:40 95 18 70 04/07/16 06:00 90 18 100/48 99 Mechanical Ventilator 70 04/07/16 05:00 93 18 96/48 100 Mechanical Ventilator 70 04/07/16 04:45 83 16 70 04/07/16 04:00 70 04/07/16 04:00 97.6 92 18 126/71 99 Mechanical Ventilator 70 04/07/16 04:00 90 04/07/16 03:18 85 16 70 04/07/16 03:00 86 16 92/47 99 Mechanical Ventilator 70 04/07/16 02:00 88 18 114/74 100 Mechanical Ventilator 70 04/07/16 01:21 87 16 70 04/07/16 01:00 81 18 91/47 100 Mechanical Ventilator 70 04/07/16 00:00 70 04/07/16 00:00 89 04/07/16 00:00 97.4 81 18 91/47 100 Mechanical Ventilator 70 04/06/16 23:00 80 16 70 04/06/16 23:00 75 18 96/42 100 Mechanical Ventilator 70 04/06/16 22:00 75 17 96/42 100 Mechanical Ventilator 70 04/06/16 21:53 86 17 70 04/06/16 21:00 82 17 99/59 100 Mechanical Ventilator 70 04/06/16 20:00 70 04/06/16 20:00 97.8 82 19 87/45 100 Mechanical Ventilator 70 04/06/16 20:00 89 04/06/16 19:23 82 16 70 04/06/16 19:00 85 16 85/43 100 Mechanical Ventilator 70 04/06/16 18:00 92 20 130/84 100 Mechanical Ventilator 100 04/06/16 17:36 91 16 70 04/06/16 17:00 83 18 112/59 100 Mechanical Ventilator 100 04/06/16 16:15 95 04/06/16 16:00 97.4 86 17 111/53 100 Mechanical Ventilator 100 04/06/16 16:00 88 04/06/16 15:27 90 16 75 04/06/16 14:00 86 16 112/51 100 Mechanical Ventilator 100 04/06/16 13:40 80 04/06/16 13:20 86 16 80 04/06/16 13:00 95 18 122/49 100 Mechanical Ventilator 100 04/06/16 12:00 89 04/06/16 12:00 97.6 86 14 109/92 100 Mechanical Ventilator 100 04/06/16 12:00 90 Intake and Output 04/06/16 04/07/16 19:00 07:00 Intake Total 695 ml 1000 ml Output Total 275 ml 471 ml Balance 420 ml 529 ml Intake Oral 0 ml Free Water 90 ml 60 ml IV Total 345 ml 655 ml Tube Feeding 240 ml 285 ml Other 20 ml Output Urine Total 275 ml 470 ml Stool Total 1 ml # Bowel Movements 1 Laboratory Tests Test 04/06/16 12:55 04/07/16 04:30 04/07/16 10:25 Urine Color Yellow Urine Appearance Clear Urine pH 5 (4.5-8.0) Urine Specific [place] 1.015 (1.005-1.035) Urine Protein 2+ (NEGATIVE) H Urine Glucose (UA) Negative (NEGATIVE) Urine Ketones Negative (NEGATIVE) Urine Occult Blood 4+ (NEGATIVE) H Urine Nitrite Negative (NEGATIVE) Urine Bilirubin Negative (NEGATIVE) Urine Urobilinogen 1 MG/DL (0.0-1.0) H Urine Leukocyte Esterase 1+ (NEGATIVE) H Urine RBC 5-10 /HPF (0 - 2) H Urine WBC 2-4 /HPF (0 - 2) Urine Squamous Epithelial Cells Few /LPF (NONE/OCC) Urine Bacteria Few /HPF (NONE) Urine Eosinophils None seen Urine Osmolality Pending Urine Random Sodium 36 mmol/L Urine Random Chloride 60 mmol/L Urine Potassium Timed 54 mmol/L White Blood Count 12.3 K/UL (4.8-10.8) H Red Blood Count 3.30 M/UL (4.20-5.40) L Hemoglobin 9.1 G/DL (12.0-16.0) L Hematocrit 29.3 % (37.0-47.0) L Mean Corpuscular Volume 89 FL (80-99) Mean Corpuscular Hemoglobin 27.5 PG (27.0-31.0) Mean Corpuscular Hemoglobin Concent 31.1 G/DL (32.0-36.0) L Red Cell Distribution Width 16.0 % (11.6-14.8) H Platelet Count 169 K/UL (150-450) Mean Platelet Volume 6.3 FL (6.5-10.1) L Neutrophils (%) (Auto) 84.4 % (45.0-75.0) H Lymphocytes (%) (Auto) 7.3 % (20.0-45.0) L Monocytes (%) (Auto) 7.7 % (1.0-10.0) Eosinophils (%) (Auto) 0.1 % (0.0-3.0) Basophils (%) (Auto) 0.5 % (0.0-2.0) Prothrombin Time 15.7 SEC (9.30-11.50) H Prothromb Time International Ratio 1.5 (0.9-1.1) H Activated Partial Thromboplast Time 27 SEC (23-33) Sodium Level 141 mEQ/L (135-145) Potassium Level 5.3 mEQ/L (3.4-4.9) H Chloride Level 96 mEQ/L (98-107) L Carbon Dioxide Level 35 mEQ/L (20-30) H Anion Gap 10 (5-15) Blood Urea Nitrogen 69 mg/dL (7-23) H Creatinine 2.2 mg/dL (0.5-0.9) H Estimat Glomerular Filtration Rate mL/min (>60) Glucose Level 139 mg/dL (74-106) H Hemoglobin A1c 5.7 % (< 6.0) Uric Acid 9.6 mg/dL (3.0-7.5) H Calcium Level 8.0 mg/dL (8.6-10.2) L Phosphorus Level 3.7 mg/dL (2.5-4.8) Magnesium Level 1.8 mg/dL (1.7-2.5) Total Bilirubin 0.3 mg/dL (0.0-1.2) Gamma Glutamyl Transpeptidase 27 U/L (5-36) Aspartate Amino Transf (AST/SGOT) 35 U/L (5-40) Alanine Aminotransferase (ALT/SGPT) 24 U/L (3-33) Alkaline Phosphatase 87 U/L (35-104) Total Creatine Kinase 122 U/L (26-140) Troponin I < 0.30 ng/mL (<=0.30) < 0.30 ng/mL (<=0.30) C-Reactive Protein, Quantitative 6.0 mg/dL (< 0.5) H Pro-B-Type Natriuretic Peptide 7461 pg/mL (0-125) H Total Protein 6.4 g/dL (6.6-8.7) L Albumin 3.2 g/dL (3.5-5.2) L Globulin 3.2 g/dL Albumin/Globulin Ratio 1.0 (1.0-2.7) Triglycerides Level 113 mg/dL (< 150) Cholesterol Level 90 mg/dL (< 200) LDL Cholesterol 30 mg/dL (60-99) L HDL Cholesterol 37 mg/dL (> 60) Cholesterol/HDL Ratio 2.4 (3.3-4.4) L Digoxin Level 0.5 ng/mL (0.5-2.0) Microbiology Date/Time Source Procedure Growth Status 04/06/16 12:59 Sputum Gram Stain - Final Resulted 04/06/16 12:59 Sputum Sputum Culture Pending Resulted 04/06/16 12:55 Urine,Clean Catch Urine Culture - Preliminary NO GROWTH Resulted Height (Feet): 5 Height (Inches): 8.00 Weight (Pounds): 350 Medications Current Medications Medications (Trade) Dose Ordered Sig/Kalyn Route PRN Reason Start Time Stop Time Status Last Admin Dose Admin Acetaminophen 650 mg 650 mg Q4H PRN RECTAL FEVER>100.5 04/06/16 10:52 05/06/16 10:29 Albuterol/ Ipratropium (DuoNeb 0.5-3(2.5)mg/3ml) 3 ml Q4H PRN HHN Shortness of Breath 04/06/16 10:30 04/11/16 10:29 Aztreonam/Dextrose (Azactam/D5W) 55 ml @ 110 mls/hr Q8HR IVPB 04/06/16 22:00 04/13/16 21:59 04/07/16 06:02 Dextrose (Dextrose 50%) STAT PRN IV Hypoglycemia 04/06/16 10:30 05/06/16 10:29 Dextrose/Sodium Chloride 1,000 ml @ 50 mls/hr Q20H IV 04/06/16 15:00 05/06/16 14:59 04/07/16 11:04 Heparin Sodium (Porcine) (Heparin 5000 units/ml) 5,000 units EVERY 12 HOURS SUBQ 04/06/16 21:00 05/06/16 20:59 04/06/16 21:10 Insulin Aspart (NovoLOG) BEFORE MEALS AND HS SUBQ 04/06/16 11:30 05/06/16 11:29 04/07/16 11:07 Lorazepam (Ativan 2mg/ml 1ml) 0.5 mg Q4H PRN IV For Anxiety 04/06/16 10:30 04/13/16 10:29 04/07/16 01:29 Morphine Sulfate (Morphine Sulfate) 4 mg Q4H PRN IVP For Pain 04/06/16 11:00 04/13/16 10:59 Ondansetron HCl (Zofran) 4 mg Q6H PRN IVP Nausea & Vomiting 04/06/16 10:30 05/06/16 10:29 Pantoprazole (Protonix) 40 mg DAILY IV 04/06/16 10:30 05/06/16 10:29 04/07/16 08:51 Polyethylene Glycol (Miralax) 17 gm DAILYPRN PRN ORAL Constipation 04/06/16 11:00 05/06/16 10:59 Vancomycin HCl (Vanco rx to dose) 1 ea DAILY PRN MISC Per rx protocol 04/06/16 11:00 05/06/16 10:59 Vancomycin HCl 750 mg/Dextrose 275 ml @ 183.708 mls/hr Q24H IVPB 04/07/16 06:00 04/12/16 05:59 04/07/16 06:02 Assessment/Plan Problem List: (1) Acute respiratory failure with hypoxia and hypercarbia ICD Codes: J96.01 - Acute respiratory failure with hypoxia; J96.02 - Acute respiratory failure with hypercapnia SNOMED: 41280321, 92587007, 402331242 (2) Pneumonia ICD Codes: J18.9 - Pneumonia, unspecified organism SNOMED: 669988419 (3) COPD exacerbation ICD Codes: J44.1 - Chronic obstructive pulmonary disease with (acute) exacerbation SNOMED: 145939265, 373171252 (4) Atrial fibrillation with RVR ICD Codes: I48.91 - Unspecified atrial fibrillation SNOMED: 760075437881167 (5) Morbid obesity ICD Codes: E66.01 - Morbid (severe) obesity due to excess calories SNOMED: 898904508, 59907411876578 Assessment/Plan Laboratory Tests Test 04/06/16 12:55 04/07/16 04:30 04/07/16 10:25 Urine Color Yellow Urine Appearance Clear Urine pH 5 (4.5-8.0) Urine Specific [place] 1.015 (1.005-1.035) Urine Protein 2+ (NEGATIVE) H Urine Glucose (UA) Negative (NEGATIVE) Urine Ketones Negative (NEGATIVE) Urine Occult Blood 4+ (NEGATIVE) H Urine Nitrite Negative (NEGATIVE) Urine Bilirubin Negative (NEGATIVE) Urine Urobilinogen 1 MG/DL (0.0-1.0) H Urine Leukocyte Esterase 1+ (NEGATIVE) H Urine RBC 5-10 /HPF (0 - 2) H Urine WBC 2-4 /HPF (0 - 2) Urine Squamous Epithelial Cells Few /LPF (NONE/OCC) Urine Bacteria Few /HPF (NONE) Urine Eosinophils None seen Urine Osmolality Pending Urine Random Sodium 36 mmol/L Urine Random Chloride 60 mmol/L Urine Potassium Timed 54 mmol/L White Blood Count 12.3 K/UL (4.8-10.8) H Red Blood Count 3.30 M/UL (4.20-5.40) L Hemoglobin 9.1 G/DL (12.0-16.0) L Hematocrit 29.3 % (37.0-47.0) L Mean Corpuscular Volume 89 FL (80-99) Mean Corpuscular Hemoglobin 27.5 PG (27.0-31.0) Mean Corpuscular Hemoglobin Concent 31.1 G/DL (32.0-36.0) L Red Cell Distribution Width 16.0 % (11.6-14.8) H Platelet Count 169 K/UL (150-450) Mean Platelet Volume 6.3 FL (6.5-10.1) L Neutrophils (%) (Auto) 84.4 % (45.0-75.0) H Lymphocytes (%) (Auto) 7.3 % (20.0-45.0) L Monocytes (%) (Auto) 7.7 % (1.0-10.0) Eosinophils (%) (Auto) 0.1 % (0.0-3.0) Basophils (%) (Auto) 0.5 % (0.0-2.0) Prothrombin Time 15.7 SEC (9.30-11.50) H Prothromb Time International Ratio 1.5 (0.9-1.1) H Activated Partial Thromboplast Time 27 SEC (23-33) Sodium Level 141 mEQ/L (135-145) Potassium Level 5.3 mEQ/L (3.4-4.9) H Chloride Level 96 mEQ/L (98-107) L Carbon Dioxide Level 35 mEQ/L (20-30) H Anion Gap 10 (5-15) Blood Urea Nitrogen 69 mg/dL (7-23) H Creatinine 2.2 mg/dL (0.5-0.9) H Estimat Glomerular Filtration Rate mL/min (>60) Glucose Level 139 mg/dL (74-106) H Hemoglobin A1c 5.7 % (< 6.0) Uric Acid 9.6 mg/dL (3.0-7.5) H Calcium Level 8.0 mg/dL (8.6-10.2) L Phosphorus Level 3.7 mg/dL (2.5-4.8) Magnesium Level 1.8 mg/dL (1.7-2.5) Total Bilirubin 0.3 mg/dL (0.0-1.2) Gamma Glutamyl Transpeptidase 27 U/L (5-36) Aspartate Amino Transf (AST/SGOT) 35 U/L (5-40) Alanine Aminotransferase (ALT/SGPT) 24 U/L (3-33) Alkaline Phosphatase 87 U/L (35-104) Total Creatine Kinase 122 U/L (26-140) Troponin I < 0.30 ng/mL (<=0.30) < 0.30 ng/mL (<=0.30) C-Reactive Protein, Quantitative 6.0 mg/dL (< 0.5) H Pro-B-Type Natriuretic Peptide 7461 pg/mL (0-125) H Total Protein 6.4 g/dL (6.6-8.7) L Albumin 3.2 g/dL (3.5-5.2) L Globulin 3.2 g/dL Albumin/Globulin Ratio 1.0 (1.0-2.7) Triglycerides Level 113 mg/dL (< 150) Cholesterol Level 90 mg/dL (< 200) LDL Cholesterol 30 mg/dL (60-99) L HDL Cholesterol 37 mg/dL (> 60) Cholesterol/HDL Ratio 2.4 (3.3-4.4) L Digoxin Level 0.5 ng/mL (0.5-2.0) Respiratory: monitor respiratory rate, adjust FIO2, CXR Cardiac: continue to monitor HR/BP Renal: F/U I&O, check electrolytes Infectious Disease: check cultures Gastrointestinal: continue feedings/current rate, hold feedings Endocrine: monitor blood sugar, continue sliding scale insulin Hematologic: transfuse if hgb<8.5 Neurologic: PRN Ativan, PRN Morphine, keep patient comfortable Affect: PRN ativan Prophylaxis: Protonix Notes Reviewed: woodyard operator, renal, ID 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: nurses, consultants, trimming caser ARASH MIRANDA Apr 07, 2016 11:34
--- NOTE | 2016-04-07 11:38 | Pulmonolgy Critical Care Note ---
Critical Care - Asmt/Plan Problems: (1) Acute respiratory failure with hypoxia and hypercarbia (2) COPD exacerbation (3) Pneumonia (4) Atrial fibrillation with RVR (5) Morbid obesity Respiratory: monitor respiratory rate, adjust FIO2, CXR Cardiac: continue to monitor HR/BP Renal: F/U I&O, keep IV fluid, check electrolytes Infectious Disease: check cultures, continue antibiotics Gastrointestinal: continue feedings/current rate Endocrine: monitor blood sugar, continue sliding scale insulin Hematologic: transfuse if hgb<8.5 Neurologic: PRN Ativan, keep patient comfortable Affect: PRN ativan Disposition: keep in ICU Notes Reviewed: aircraft rigging and controls mechanic, cardio, renal 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: nurses, consultants, telehealth case managermanager drug safety - Objective Last 24 Hour Vital Signs Date Time Temp Pulse Resp B/P Pulse Ox O2 Delivery O2 Flow Rate FiO2 04/07/16 10:56 102 20 70 04/07/16 09:19 85 18 70 04/07/16 09:00 89 22 110/58 100 Mechanical Ventilator 70 04/07/16 08:00 70 04/07/16 08:00 91 04/07/16 08:00 98.0 89 14 98/50 100 Mechanical Ventilator 70 04/07/16 07:00 92 15 109/55 99 Mechanical Ventilator 70 04/07/16 06:40 95 18 70 04/07/16 06:00 90 18 100/48 99 Mechanical Ventilator 70 04/07/16 05:00 93 18 96/48 100 Mechanical Ventilator 70 04/07/16 04:45 83 16 70 04/07/16 04:00 70 04/07/16 04:00 97.6 92 18 126/71 99 Mechanical Ventilator 70 04/07/16 04:00 90 04/07/16 03:18 85 16 70 04/07/16 03:00 86 16 92/47 99 Mechanical Ventilator 70 04/07/16 02:00 88 18 114/74 100 Mechanical Ventilator 70 04/07/16 01:21 87 16 70 04/07/16 01:00 81 18 91/47 100 Mechanical Ventilator 70 04/07/16 00:00 70 04/07/16 00:00 89 04/07/16 00:00 97.4 81 18 91/47 100 Mechanical Ventilator 70 04/06/16 23:00 80 16 70 04/06/16 23:00 75 18 96/42 100 Mechanical Ventilator 70 04/06/16 22:00 75 17 96/42 100 Mechanical Ventilator 70 04/06/16 21:53 86 17 70 04/06/16 21:00 82 17 99/59 100 Mechanical Ventilator 70 04/06/16 20:00 70 04/06/16 20:00 97.8 82 19 87/45 100 Mechanical Ventilator 70 04/06/16 20:00 89 04/06/16 19:23 82 16 70 04/06/16 19:00 85 16 85/43 100 Mechanical Ventilator 70 04/06/16 18:00 92 20 130/84 100 Mechanical Ventilator 100 04/06/16 17:36 91 16 70 04/06/16 17:00 83 18 112/59 100 Mechanical Ventilator 100 04/06/16 16:15 95 04/06/16 16:00 97.4 86 17 111/53 100 Mechanical Ventilator 100 04/06/16 16:00 88 04/06/16 15:27 90 16 75 04/06/16 14:00 86 16 112/51 100 Mechanical Ventilator 100 04/06/16 13:40 80 04/06/16 13:20 86 16 80 04/06/16 13:00 95 18 122/49 100 Mechanical Ventilator 100 04/06/16 12:00 89 04/06/16 12:00 97.6 86 14 109/92 100 Mechanical Ventilator 100 04/06/16 12:00 90 Status: awake Condition: critical HEENT: atraumatic Neck: full ROM Heart: HR/BP stable, regular Abdomen: soft, active bowel sounds, feeding tube Extremities: edema Decubiti: location, stage Micro: Microbiology Date/Time Source Procedure Growth Status 04/06/16 12:59 Sputum Gram Stain - Final Resulted 04/06/16 12:59 Sputum Sputum Culture Pending Resulted 04/06/16 12:55 Urine,Clean Catch Urine Culture - Preliminary NO GROWTH Resulted Accucheck: 151 Critical Care - Subjective ROS Limited/Unobtainable: Yes ICU Day: 2 Intubation Day: 2 Condition: critical EKG Rhythm: Sinus Rhythm FI02: 70 Vent Support Breath Rate: 16 Vent Support Mode: AC Vent Tidal Volume: 500 Sputum Amount: Moderate PEEP: 5.0 PIP: 45 Secretions: small Fluids: d5 ns 50 Tube Feeding Amount: 30 I&O: Intake and Output 04/06/16 04/07/16 19:00 07:00 Intake Total 695 ml 1000 ml Output Total 275 ml 471 ml Balance 420 ml 529 ml Intake Oral 0 ml Free Water 90 ml 60 ml IV Total 345 ml 655 ml Tube Feeding 240 ml 285 ml Other 20 ml Output Urine Total 275 ml 470 ml Stool Total 1 ml # Bowel Movements 1 CXR: pulmonary edema ET-Tube: 7.0 ET Position: 21 Labs: Laboratory Tests Test 04/06/16 12:55 04/07/16 04:30 04/07/16 10:25 Urine Color Yellow Urine Appearance Clear Urine pH 5 (4.5-8.0) Urine Specific [place] 1.015 (1.005-1.035) Urine Protein 2+ (NEGATIVE) H Urine Glucose (UA) Negative (NEGATIVE) Urine Ketones Negative (NEGATIVE) Urine Occult Blood 4+ (NEGATIVE) H Urine Nitrite Negative (NEGATIVE) Urine Bilirubin Negative (NEGATIVE) Urine Urobilinogen 1 MG/DL (0.0-1.0) H Urine Leukocyte Esterase 1+ (NEGATIVE) H Urine RBC 5-10 /HPF (0 - 2) H Urine WBC 2-4 /HPF (0 - 2) Urine Squamous Epithelial Cells Few /LPF (NONE/OCC) Urine Bacteria Few /HPF (NONE) Urine Eosinophils None seen Urine Osmolality Pending Urine Random Sodium 36 mmol/L Urine Random Chloride 60 mmol/L Urine Potassium Timed 54 mmol/L White Blood Count 12.3 K/UL (4.8-10.8) H Red Blood Count 3.30 M/UL (4.20-5.40) L Hemoglobin 9.1 G/DL (12.0-16.0) L Hematocrit 29.3 % (37.0-47.0) L Mean Corpuscular Volume 89 FL (80-99) Mean Corpuscular Hemoglobin 27.5 PG (27.0-31.0) Mean Corpuscular Hemoglobin Concent 31.1 G/DL (32.0-36.0) L Red Cell Distribution Width 16.0 % (11.6-14.8) H Platelet Count 169 K/UL (150-450) Mean Platelet Volume 6.3 FL (6.5-10.1) L Neutrophils (%) (Auto) 84.4 % (45.0-75.0) H Lymphocytes (%) (Auto) 7.3 % (20.0-45.0) L Monocytes (%) (Auto) 7.7 % (1.0-10.0) Eosinophils (%) (Auto) 0.1 % (0.0-3.0) Basophils (%) (Auto) 0.5 % (0.0-2.0) Prothrombin Time 15.7 SEC (9.30-11.50) H Prothromb Time International Ratio 1.5 (0.9-1.1) H Activated Partial Thromboplast Time 27 SEC (23-33) Sodium Level 141 mEQ/L (135-145) Potassium Level 5.3 mEQ/L (3.4-4.9) H Chloride Level 96 mEQ/L (98-107) L Carbon Dioxide Level 35 mEQ/L (20-30) H Anion Gap 10 (5-15) Blood Urea Nitrogen 69 mg/dL (7-23) H Creatinine 2.2 mg/dL (0.5-0.9) H Estimat Glomerular Filtration Rate mL/min (>60) Glucose Level 139 mg/dL (74-106) H Hemoglobin A1c 5.7 % (< 6.0) Uric Acid 9.6 mg/dL (3.0-7.5) H Calcium Level 8.0 mg/dL (8.6-10.2) L Phosphorus Level 3.7 mg/dL (2.5-4.8) Magnesium Level 1.8 mg/dL (1.7-2.5) Total Bilirubin 0.3 mg/dL (0.0-1.2) Gamma Glutamyl Transpeptidase 27 U/L (5-36) Aspartate Amino Transf (AST/SGOT) 35 U/L (5-40) Alanine Aminotransferase (ALT/SGPT) 24 U/L (3-33) Alkaline Phosphatase 87 U/L (35-104) Total Creatine Kinase 122 U/L (26-140) Troponin I < 0.30 ng/mL (<=0.30) < 0.30 ng/mL (<=0.30) C-Reactive Protein, Quantitative 6.0 mg/dL (< 0.5) H Pro-B-Type Natriuretic Peptide 7461 pg/mL (0-125) H Total Protein 6.4 g/dL (6.6-8.7) L Albumin 3.2 g/dL (3.5-5.2) L Globulin 3.2 g/dL Albumin/Globulin Ratio 1.0 (1.0-2.7) Triglycerides Level 113 mg/dL (< 150) Cholesterol Level 90 mg/dL (< 200) LDL Cholesterol 30 mg/dL (60-99) L HDL Cholesterol 37 mg/dL (> 60) Cholesterol/HDL Ratio 2.4 (3.3-4.4) L Digoxin Level 0.5 ng/mL (0.5-2.0) RAASH MIRANDA Apr 07, 2016 11:38
--- NOTE | 2016-04-07 12:15 | Infectious Diseases Prog Note ---
Assessment/Plan Assessment/Plan A: The patient is a 75-year-old female with Leukocytosis improving Sepsis Pneumonia LLExt Cellulitis VDRF Obesity CHF HTN COPD GERD. DM PLAN: Cont on Levaquin, vancomycin, and Azactam d# 2 Monitor CBC Monitor BMP. Monitor cultures (blood, sputum, and urine). Monitor renal function. Monitor CBC. Monitor chest x-ray. Vent support Subjective Allergies: Coded Allergies: AMOXICILLIN (Verified Allergy, Mild, RASH, 12/25/09) PENICILLINS (Unverified Allergy, Unknown, 04/06/16) Subjective on vent Objective Vital Signs Last 24 Hour Vital Signs Date Time Temp Pulse Resp B/P Pulse Ox O2 Delivery O2 Flow Rate FiO2 04/07/16 11:00 100 20 98/37 99 Mechanical Ventilator 70 04/07/16 10:56 102 20 70 04/07/16 10:00 96 19 103/55 99 Mechanical Ventilator 70 04/07/16 09:19 85 18 70 04/07/16 09:00 89 22 110/58 100 Mechanical Ventilator 70 04/07/16 08:00 70 04/07/16 08:00 91 04/07/16 08:00 98.0 89 14 98/50 100 Mechanical Ventilator 70 04/07/16 07:00 92 15 109/55 99 Mechanical Ventilator 70 04/07/16 06:40 95 18 70 04/07/16 06:00 90 18 100/48 99 Mechanical Ventilator 70 04/07/16 05:00 93 18 96/48 100 Mechanical Ventilator 70 04/07/16 04:45 83 16 70 04/07/16 04:00 70 04/07/16 04:00 97.6 92 18 126/71 99 Mechanical Ventilator 70 04/07/16 04:00 90 04/07/16 03:18 85 16 70 04/07/16 03:00 86 16 92/47 99 Mechanical Ventilator 70 04/07/16 02:00 88 18 114/74 100 Mechanical Ventilator 70 04/07/16 01:21 87 16 70 04/07/16 01:00 81 18 91/47 100 Mechanical Ventilator 70 04/07/16 00:00 70 04/07/16 00:00 89 04/07/16 00:00 97.4 81 18 91/47 100 Mechanical Ventilator 70 04/06/16 23:00 80 16 70 04/06/16 23:00 75 18 96/42 100 Mechanical Ventilator 70 04/06/16 22:00 75 17 96/42 100 Mechanical Ventilator 70 04/06/16 21:53 86 17 70 04/06/16 21:00 82 17 99/59 100 Mechanical Ventilator 70 04/06/16 20:00 70 04/06/16 20:00 97.8 82 19 87/45 100 Mechanical Ventilator 70 04/06/16 20:00 89 04/06/16 19:23 82 16 70 04/06/16 19:00 85 16 85/43 100 Mechanical Ventilator 70 04/06/16 18:00 92 20 130/84 100 Mechanical Ventilator 100 04/06/16 17:36 91 16 70 04/06/16 17:00 83 18 112/59 100 Mechanical Ventilator 100 04/06/16 16:15 95 04/06/16 16:00 97.4 86 17 111/53 100 Mechanical Ventilator 100 04/06/16 16:00 88 04/06/16 15:27 90 16 75 04/06/16 14:00 86 16 112/51 100 Mechanical Ventilator 100 04/06/16 13:40 80 04/06/16 13:20 86 16 80 04/06/16 13:00 95 18 122/49 100 Mechanical Ventilator 100 Height (Feet): 5 Height (Inches): 8.00 Weight (Pounds): 350 Respiratory/Chest: no respiratory distress Cardiovascular: no gallop/murmur Genitourinary: normal external genitalia Extremities: other - LLext erythema Microbiology Date/Time Source Procedure Growth Status 04/06/16 12:59 Sputum Gram Stain - Final Resulted 04/06/16 12:59 Sputum Sputum Culture Pending Resulted 04/06/16 12:55 Urine,Clean Catch Urine Culture - Preliminary NO GROWTH Resulted Laboratory Tests Test 04/06/16 12:55 04/07/16 04:30 04/07/16 10:25 Urine Color Yellow Urine Appearance Clear Urine pH 5 (4.5-8.0) Urine Specific [place] 1.015 (1.005-1.035) Urine Protein 2+ (NEGATIVE) H Urine Glucose (UA) Negative (NEGATIVE) Urine Ketones Negative (NEGATIVE) Urine Occult Blood 4+ (NEGATIVE) H Urine Nitrite Negative (NEGATIVE) Urine Bilirubin Negative (NEGATIVE) Urine Urobilinogen 1 MG/DL (0.0-1.0) H Urine Leukocyte Esterase 1+ (NEGATIVE) H Urine RBC 5-10 /HPF (0 - 2) H Urine WBC 2-4 /HPF (0 - 2) Urine Squamous Epithelial Cells Few /LPF (NONE/OCC) Urine Bacteria Few /HPF (NONE) Urine Eosinophils None seen Urine Osmolality Pending Urine Random Sodium 36 mmol/L Urine Random Chloride 60 mmol/L Urine Potassium Timed 54 mmol/L White Blood Count 12.3 K/UL (4.8-10.8) H Red Blood Count 3.30 M/UL (4.20-5.40) L Hemoglobin 9.1 G/DL (12.0-16.0) L Hematocrit 29.3 % (37.0-47.0) L Mean Corpuscular Volume 89 FL (80-99) Mean Corpuscular Hemoglobin 27.5 PG (27.0-31.0) Mean Corpuscular Hemoglobin Concent 31.1 G/DL (32.0-36.0) L Red Cell Distribution Width 16.0 % (11.6-14.8) H Platelet Count 169 K/UL (150-450) Mean Platelet Volume 6.3 FL (6.5-10.1) L Neutrophils (%) (Auto) 84.4 % (45.0-75.0) H Lymphocytes (%) (Auto) 7.3 % (20.0-45.0) L Monocytes (%) (Auto) 7.7 % (1.0-10.0) Eosinophils (%) (Auto) 0.1 % (0.0-3.0) Basophils (%) (Auto) 0.5 % (0.0-2.0) Prothrombin Time 15.7 SEC (9.30-11.50) H Prothromb Time International Ratio 1.5 (0.9-1.1) H Activated Partial Thromboplast Time 27 SEC (23-33) Sodium Level 141 mEQ/L (135-145) Potassium Level 5.3 mEQ/L (3.4-4.9) H Chloride Level 96 mEQ/L (98-107) L Carbon Dioxide Level 35 mEQ/L (20-30) H Anion Gap 10 (5-15) Blood Urea Nitrogen 69 mg/dL (7-23) H Creatinine 2.2 mg/dL (0.5-0.9) H Estimat Glomerular Filtration Rate mL/min (>60) Glucose Level 139 mg/dL (74-106) H Hemoglobin A1c 5.7 % (< 6.0) Uric Acid 9.6 mg/dL (3.0-7.5) H Calcium Level 8.0 mg/dL (8.6-10.2) L Phosphorus Level 3.7 mg/dL (2.5-4.8) Magnesium Level 1.8 mg/dL (1.7-2.5) Total Bilirubin 0.3 mg/dL (0.0-1.2) Gamma Glutamyl Transpeptidase 27 U/L (5-36) Aspartate Amino Transf (AST/SGOT) 35 U/L (5-40) Alanine Aminotransferase (ALT/SGPT) 24 U/L (3-33) Alkaline Phosphatase 87 U/L (35-104) Total Creatine Kinase 122 U/L (26-140) Troponin I < 0.30 ng/mL (<=0.30) < 0.30 ng/mL (<=0.30) C-Reactive Protein, Quantitative 6.0 mg/dL (< 0.5) H Pro-B-Type Natriuretic Peptide 7461 pg/mL (0-125) H Total Protein 6.4 g/dL (6.6-8.7) L Albumin 3.2 g/dL (3.5-5.2) L Globulin 3.2 g/dL Albumin/Globulin Ratio 1.0 (1.0-2.7) Triglycerides Level 113 mg/dL (< 150) Cholesterol Level 90 mg/dL (< 200) LDL Cholesterol 30 mg/dL (60-99) L HDL Cholesterol 37 mg/dL (> 60) Cholesterol/HDL Ratio 2.4 (3.3-4.4) L Digoxin Level 0.5 ng/mL (0.5-2.0) Current Medications Medications (Trade) Dose Ordered Sig/Kalyn Route PRN Reason Start Time Stop Time Status Last Admin Dose Admin Acetaminophen 650 mg 650 mg Q4H PRN RECTAL FEVER>100.5 04/06/16 10:52 05/06/16 10:29 Albuterol/ Ipratropium (DuoNeb 0.5-3(2.5)mg/3ml) 3 ml Q4H PRN HHN Shortness of Breath 04/06/16 10:30 04/11/16 10:29 Aztreonam/Dextrose (Azactam/D5W) 55 ml @ 110 mls/hr Q8HR IVPB 04/06/16 22:00 04/13/16 21:59 04/07/16 06:02 Dextrose (Dextrose 50%) STAT PRN IV Hypoglycemia 04/06/16 10:30 05/06/16 10:29 Dextrose/Sodium Chloride 1,000 ml @ 50 mls/hr Q20H IV 04/06/16 15:00 05/06/16 14:59 04/07/16 11:04 Heparin Sodium (Porcine) (Heparin 5000 units/ml) 5,000 units EVERY 12 HOURS SUBQ 04/06/16 21:00 05/06/16 20:59 04/06/16 21:10 Insulin Aspart (NovoLOG) BEFORE MEALS AND HS SUBQ 04/06/16 11:30 05/06/16 11:29 04/07/16 11:07 Lorazepam (Ativan 2mg/ml 1ml) 0.5 mg Q4H PRN IV For Anxiety 04/06/16 10:30 04/13/16 10:29 04/07/16 12:05 Morphine Sulfate (Morphine Sulfate) 4 mg Q4H PRN IVP For Pain 04/06/16 11:00 04/13/16 10:59 Ondansetron HCl (Zofran) 4 mg Q6H PRN IVP Nausea & Vomiting 04/06/16 10:30 05/06/16 10:29 Pantoprazole (Protonix) 40 mg DAILY IV 04/06/16 10:30 05/06/16 10:29 04/07/16 08:51 Polyethylene Glycol (Miralax) 17 gm DAILYPRN PRN ORAL Constipation 04/06/16 11:00 05/06/16 10:59 Vancomycin HCl (Vanco rx to dose) 1 ea DAILY PRN MISC Per rx protocol 04/06/16 11:00 05/06/16 10:59 Vancomycin HCl 750 mg/Dextrose 275 ml @ 183.708 mls/hr Q24H IVPB 04/07/16 06:00 04/12/16 05:59 04/07/16 06:02 LINDSEY HILL M.D. Apr 07, 2016 12:15
--- NOTE | 2016-04-07 12:20 | General Progress Note ---
Subjective Date patient seen: Apr 07, 2016 Time patient seen: 11:58 ROS Limited/Unobtainable: Yes Allergies: Coded Allergies: AMOXICILLIN (Verified Allergy, Mild, RASH, 12/25/09) PENICILLINS (Unverified Allergy, Unknown, 04/06/16) Subjective The patient was seen and examined at bedside and all new and available data was reviewed in the patients chart. I agree with the above findings, impression and plan. (Patient seen earlier today. Signature stamp does not reflect patient encounter time.). -Manny Nolan MD Objective Last 24 Hour Vital Signs Date Time Temp Pulse Resp B/P Pulse Ox O2 Delivery O2 Flow Rate FiO2 04/07/16 11:00 100 20 98/37 99 Mechanical Ventilator 70 04/07/16 10:56 102 20 70 04/07/16 10:00 96 19 103/55 99 Mechanical Ventilator 70 04/07/16 09:19 85 18 70 04/07/16 09:00 89 22 110/58 100 Mechanical Ventilator 70 04/07/16 08:00 70 04/07/16 08:00 91 04/07/16 08:00 98.0 89 14 98/50 100 Mechanical Ventilator 70 04/07/16 07:00 92 15 109/55 99 Mechanical Ventilator 70 04/07/16 06:40 95 18 70 04/07/16 06:00 90 18 100/48 99 Mechanical Ventilator 70 04/07/16 05:00 93 18 96/48 100 Mechanical Ventilator 70 04/07/16 04:45 83 16 70 04/07/16 04:00 70 04/07/16 04:00 97.6 92 18 126/71 99 Mechanical Ventilator 70 04/07/16 04:00 90 04/07/16 03:18 85 16 70 04/07/16 03:00 86 16 92/47 99 Mechanical Ventilator 70 04/07/16 02:00 88 18 114/74 100 Mechanical Ventilator 70 04/07/16 01:21 87 16 70 04/07/16 01:00 81 18 91/47 100 Mechanical Ventilator 70 04/07/16 00:00 70 04/07/16 00:00 89 04/07/16 00:00 97.4 81 18 91/47 100 Mechanical Ventilator 70 04/06/16 23:00 80 16 70 04/06/16 23:00 75 18 96/42 100 Mechanical Ventilator 70 04/06/16 22:00 75 17 96/42 100 Mechanical Ventilator 70 04/06/16 21:53 86 17 70 04/06/16 21:00 82 17 99/59 100 Mechanical Ventilator 70 04/06/16 20:00 70 04/06/16 20:00 97.8 82 19 87/45 100 Mechanical Ventilator 70 04/06/16 20:00 89 04/06/16 19:23 82 16 70 04/06/16 19:00 85 16 85/43 100 Mechanical Ventilator 70 04/06/16 18:00 92 20 130/84 100 Mechanical Ventilator 100 04/06/16 17:36 91 16 70 04/06/16 17:00 83 18 112/59 100 Mechanical Ventilator 100 04/06/16 16:15 95 04/06/16 16:00 97.4 86 17 111/53 100 Mechanical Ventilator 100 04/06/16 16:00 88 04/06/16 15:27 90 16 75 04/06/16 14:00 86 16 112/51 100 Mechanical Ventilator 100 04/06/16 13:40 80 04/06/16 13:20 86 16 80 04/06/16 13:00 95 18 122/49 100 Mechanical Ventilator 100 Intake and Output 04/06/16 04/07/16 19:00 07:00 Intake Total 695 ml 1000 ml Output Total 275 ml 471 ml Balance 420 ml 529 ml Intake Oral 0 ml Free Water 90 ml 60 ml IV Total 345 ml 655 ml Tube Feeding 240 ml 285 ml Other 20 ml Output Urine Total 275 ml 470 ml Stool Total 1 ml # Bowel Movements 1 Laboratory Tests 04/06/16 12:55: Urine Color Yellow, Urine Appearance Clear, Urine pH 5, Urine Specific [place] 1.015, Urine Protein 2+H, Urine Glucose (UA) Negative, Urine Ketones Negative, Urine Occult Blood 4+H, Urine Nitrite Negative, Urine Bilirubin Negative, Urine Urobilinogen 1H, Urine Leukocyte Esterase 1+H, Urine RBC 5-10H, Urine WBC 2-4, Urine Squamous Epithelial Cells Few, Urine Bacteria Few, Urine Eosinophils None seen, Urine Osmolality [Pending], Urine Random Sodium 36, Urine Random Chloride 60, Urine Potassium Timed 54 04/07/16 04:30: White Blood Count 12.3H, Red Blood Count 3.30L, Hemoglobin 9.1L, Hematocrit 29.3L, Mean Corpuscular Volume 89, Mean Corpuscular Hemoglobin 27.5, Mean Corpuscular Hemoglobin Concent 31.1L, Red Cell Distribution Width 16.0H, Platelet Count 169, Mean Platelet Volume 6.3L, Neutrophils (%) (Auto) 84.4H, Lymphocytes (%) (Auto) 7.3L, Monocytes (%) (Auto) 7.7, Eosinophils (%) (Auto) 0.1, Basophils (%) (Auto) 0.5, Prothrombin Time 15.7H, Prothromb Time International Ratio 1.5H, Activated Partial Thromboplast Time 27, Sodium Level 141, Potassium Level 5.3H, Chloride Level 96L, Carbon Dioxide Level 35H, Anion Gap 10, Blood Urea Nitrogen 69H, Creatinine 2.2H, Estimat Glomerular Filtration Rate , Glucose Level 139H, Hemoglobin A1c 5.7, Uric Acid 9.6H, Calcium Level 8.0L, Phosphorus Level 3.7, Magnesium Level 1.8, Total Bilirubin 0.3, Gamma Glutamyl Transpeptidase 27, Aspartate Amino Transf (AST/SGOT) 35, Alanine Aminotransferase (ALT/SGPT) 24, Alkaline Phosphatase 87, Total Creatine Kinase 122, Troponin I < 0.30, C-Reactive Protein, Quantitative 6.0H, Pro-B-Type Natriuretic Peptide 7461H, Total Protein 6.4L, Albumin 3.2L, Globulin 3.2, Albumin/Globulin Ratio 1.0, Triglycerides Level 113, Cholesterol Level 90, LDL Cholesterol 30L, HDL Cholesterol 37, Cholesterol/HDL Ratio 2.4L, Digoxin Level 0.5 04/07/16 10:25: Troponin I < 0.30 Height (Feet): 5 Height (Inches): 8.00 Weight (Pounds): 350 Manny Nolan MD Apr 07, 2016 12:20
--- NOTE | 2016-04-07 13:06 | General Progress Note ---
Assessment/Plan Status: unchanged Status Narrative Cr 2.2 Assessment/Plan status: Acute renal failure- Acute Respiratory Failure Anemia Morbid Obesity CHF ? Sepsis Plan: kayexelate Optimize cardiac and pulmonary status- Avoid Nephrotoxics- monitor renal parameters Urine studies- Keep BP over 100 syst Antibiotics Subjective ROS Limited/Unobtainable: Yes Allergies: Coded Allergies: AMOXICILLIN (Verified Allergy, Mild, RASH, 12/25/09) PENICILLINS (Unverified Allergy, Unknown, 04/06/16) Objective Last 24 Hour Vital Signs Date Time Temp Pulse Resp B/P Pulse Ox O2 Delivery O2 Flow Rate FiO2 04/07/16 12:00 70 04/07/16 12:00 97.8 99 24 114/56 97 Mechanical Ventilator 70 04/07/16 11:00 100 20 98/37 99 Mechanical Ventilator 70 04/07/16 10:56 102 20 70 04/07/16 10:00 96 19 103/55 99 Mechanical Ventilator 70 04/07/16 09:19 85 18 70 04/07/16 09:00 89 22 110/58 100 Mechanical Ventilator 70 04/07/16 08:00 70 04/07/16 08:00 91 04/07/16 08:00 98.0 89 14 98/50 100 Mechanical Ventilator 70 04/07/16 07:00 92 15 109/55 99 Mechanical Ventilator 70 04/07/16 06:40 95 18 70 04/07/16 06:00 90 18 100/48 99 Mechanical Ventilator 70 04/07/16 05:00 93 18 96/48 100 Mechanical Ventilator 70 04/07/16 04:45 83 16 70 04/07/16 04:00 70 04/07/16 04:00 97.6 92 18 126/71 99 Mechanical Ventilator 70 04/07/16 04:00 90 04/07/16 03:18 85 16 70 04/07/16 03:00 86 16 92/47 99 Mechanical Ventilator 70 04/07/16 02:00 88 18 114/74 100 Mechanical Ventilator 70 04/07/16 01:21 87 16 70 04/07/16 01:00 81 18 91/47 100 Mechanical Ventilator 70 04/07/16 00:00 70 04/07/16 00:00 89 04/07/16 00:00 97.4 81 18 91/47 100 Mechanical Ventilator 70 04/06/16 23:00 80 16 70 04/06/16 23:00 75 18 96/42 100 Mechanical Ventilator 70 04/06/16 22:00 75 17 96/42 100 Mechanical Ventilator 70 04/06/16 21:53 86 17 70 04/06/16 21:00 82 17 99/59 100 Mechanical Ventilator 70 04/06/16 20:00 70 04/06/16 20:00 97.8 82 19 87/45 100 Mechanical Ventilator 70 04/06/16 20:00 89 04/06/16 19:23 82 16 70 04/06/16 19:00 85 16 85/43 100 Mechanical Ventilator 70 04/06/16 18:00 92 20 130/84 100 Mechanical Ventilator 100 04/06/16 17:36 91 16 70 04/06/16 17:00 83 18 112/59 100 Mechanical Ventilator 100 04/06/16 16:15 95 04/06/16 16:00 97.4 86 17 111/53 100 Mechanical Ventilator 100 04/06/16 16:00 88 04/06/16 15:27 90 16 75 04/06/16 14:00 86 16 112/51 100 Mechanical Ventilator 100 04/06/16 13:40 80 04/06/16 13:20 86 16 80 Intake and Output 04/06/16 04/07/16 19:00 07:00 Intake Total 695 ml 1000 ml Output Total 275 ml 471 ml Balance 420 ml 529 ml Intake Oral 0 ml Free Water 90 ml 60 ml IV Total 345 ml 655 ml Tube Feeding 240 ml 285 ml Other 20 ml Output Urine Total 275 ml 470 ml Stool Total 1 ml # Bowel Movements 1 Laboratory Tests 04/07/16 04:30: White Blood Count 12.3H, Red Blood Count 3.30L, Hemoglobin 9.1L, Hematocrit 29.3L, Mean Corpuscular Volume 89, Mean Corpuscular Hemoglobin 27.5, Mean Corpuscular Hemoglobin Concent 31.1L, Red Cell Distribution Width 16.0H, Platelet Count 169, Mean Platelet Volume 6.3L, Neutrophils (%) (Auto) 84.4H, Lymphocytes (%) (Auto) 7.3L, Monocytes (%) (Auto) 7.7, Eosinophils (%) (Auto) 0.1, Basophils (%) (Auto) 0.5, Prothrombin Time 15.7H, Prothromb Time International Ratio 1.5H, Activated Partial Thromboplast Time 27, Sodium Level 141, Potassium Level 5.3H, Chloride Level 96L, Carbon Dioxide Level 35H, Anion Gap 10, Blood Urea Nitrogen 69H, Creatinine 2.2H, Estimat Glomerular Filtration Rate , Glucose Level 139H, Hemoglobin A1c 5.7, Uric Acid 9.6H, Calcium Level 8.0L, Phosphorus Level 3.7, Magnesium Level 1.8, Total Bilirubin 0.3, Gamma Glutamyl Transpeptidase 27, Aspartate Amino Transf (AST/SGOT) 35, Alanine Aminotransferase (ALT/SGPT) 24, Alkaline Phosphatase 87, Total Creatine Kinase 122, Troponin I < 0.30, C-Reactive Protein, Quantitative 6.0H, Pro-B-Type Natriuretic Peptide 7461H, Total Protein 6.4L, Albumin 3.2L, Globulin 3.2, Albumin/Globulin Ratio 1.0, Triglycerides Level 113, Cholesterol Level 90, LDL Cholesterol 30L, HDL Cholesterol 37, Cholesterol/HDL Ratio 2.4L, Digoxin Level 0.5 04/07/16 10:25: Troponin I < 0.30 Height (Feet): 5 Height (Inches): 8.00 Weight (Pounds): 350 EENT: other - on Vent Cardiovascular: tachycardia, arrhythmia Respiratory/Chest: decreased breath sounds Abdomen: other - obese Edema: 2+ Arm (L), 2+ Arm (R), 2+ Leg (L), 2+ Leg (R), 2+ Pedal (L), 2+ Pedal ( R), 2+ Generalized COURTNEY LOPEZ Apr 07, 2016 13:06
[2016-04-07] MEDS ORDERED: Sodium Polystyrene Sulfonate 15gm Powder NG ONE (13:30)
--- NOTE | 2016-04-07 14:42 | Cardiac Electrophysiology PN ---
Assessment/Plan Assessment/Plan 1. Respiratory failure, likely due to patient's chronic obstructive pulmonary disease. The patient also is volume overloaded in view of renal failure. Her BNP is 7700. Echocardiogram showed ejection fraction of 55% to 60%. Off Lasix today. 2. Atrial fibrillation, rapid ventricular response. Heart rate is slightly better after iv Digoxin.. Avoid beta-blockers. Start Cardizem 30 mg NG three times a day and add Digoxin 0.125 daily 3. Lower extremity cellulitis, on IV antibiotics with vancomycin and aztreonam. 4. Morbid obesity. 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 Fib rate better controlled after the IV Digoxin. Objective Last 24 Hour Vital Signs Date Time Temp Pulse Resp B/P Pulse Ox O2 Delivery O2 Flow Rate FiO2 04/07/16 14:00 101 20 135/65 99 Mechanical Ventilator 70 04/07/16 13:00 101 22 101/64 99 Mechanical Ventilator 70 04/07/16 12:00 70 04/07/16 12:00 97.8 99 24 114/56 97 Mechanical Ventilator 70 04/07/16 12:00 99 04/07/16 11:00 100 20 98/37 99 Mechanical Ventilator 70 04/07/16 10:56 102 20 70 04/07/16 10:00 96 19 103/55 99 Mechanical Ventilator 70 04/07/16 09:19 85 18 70 04/07/16 09:00 89 22 110/58 100 Mechanical Ventilator 70 04/07/16 08:00 70 04/07/16 08:00 91 04/07/16 08:00 98.0 89 14 98/50 100 Mechanical Ventilator 70 04/07/16 07:00 92 15 109/55 99 Mechanical Ventilator 70 04/07/16 06:40 95 18 70 04/07/16 06:00 90 18 100/48 99 Mechanical Ventilator 70 04/07/16 05:00 93 18 96/48 100 Mechanical Ventilator 70 04/07/16 04:45 83 16 70 04/07/16 04:00 70 04/07/16 04:00 97.6 92 18 126/71 99 Mechanical Ventilator 70 04/07/16 04:00 90 04/07/16 03:18 85 16 70 04/07/16 03:00 86 16 92/47 99 Mechanical Ventilator 70 04/07/16 02:00 88 18 114/74 100 Mechanical Ventilator 70 04/07/16 01:21 87 16 70 04/07/16 01:00 81 18 91/47 100 Mechanical Ventilator 70 04/07/16 00:00 70 04/07/16 00:00 89 04/07/16 00:00 97.4 81 18 91/47 100 Mechanical Ventilator 70 04/06/16 23:00 80 16 70 04/06/16 23:00 75 18 96/42 100 Mechanical Ventilator 70 04/06/16 22:00 75 17 96/42 100 Mechanical Ventilator 70 04/06/16 21:53 86 17 70 04/06/16 21:00 82 17 99/59 100 Mechanical Ventilator 70 04/06/16 20:00 70 04/06/16 20:00 97.8 82 19 87/45 100 Mechanical Ventilator 70 04/06/16 20:00 89 04/06/16 19:23 82 16 70 04/06/16 19:00 85 16 85/43 100 Mechanical Ventilator 70 04/06/16 18:00 92 20 130/84 100 Mechanical Ventilator 100 04/06/16 17:36 91 16 70 04/06/16 17:00 83 18 112/59 100 Mechanical Ventilator 100 04/06/16 16:15 95 04/06/16 16:00 97.4 86 17 111/53 100 Mechanical Ventilator 100 04/06/16 16:00 88 04/06/16 15:27 90 16 75 Intake and Output 04/06/16 04/07/16 19:00 07:00 Intake Total 695 ml 1000 ml Output Total 275 ml 471 ml Balance 420 ml 529 ml Intake Oral 0 ml Free Water 90 ml 60 ml IV Total 345 ml 655 ml Tube Feeding 240 ml 285 ml Other 20 ml Output Urine Total 275 ml 470 ml Stool Total 1 ml # Bowel Movements 1 Laboratory Tests Test 04/07/16 04:30 04/07/16 10:25 White Blood Count 12.3 K/UL (4.8-10.8) H Red Blood Count 3.30 M/UL (4.20-5.40) L Hemoglobin 9.1 G/DL (12.0-16.0) L Hematocrit 29.3 % (37.0-47.0) L Mean Corpuscular Volume 89 FL (80-99) Mean Corpuscular Hemoglobin 27.5 PG (27.0-31.0) Mean Corpuscular Hemoglobin Concent 31.1 G/DL (32.0-36.0) L Red Cell Distribution Width 16.0 % (11.6-14.8) H Platelet Count 169 K/UL (150-450) Mean Platelet Volume 6.3 FL (6.5-10.1) L Neutrophils (%) (Auto) 84.4 % (45.0-75.0) H Lymphocytes (%) (Auto) 7.3 % (20.0-45.0) L Monocytes (%) (Auto) 7.7 % (1.0-10.0) Eosinophils (%) (Auto) 0.1 % (0.0-3.0) Basophils (%) (Auto) 0.5 % (0.0-2.0) Prothrombin Time 15.7 SEC (9.30-11.50) H Prothromb Time International Ratio 1.5 (0.9-1.1) H Activated Partial Thromboplast Time 27 SEC (23-33) Sodium Level 141 mEQ/L (135-145) Potassium Level 5.3 mEQ/L (3.4-4.9) H Chloride Level 96 mEQ/L (98-107) L Carbon Dioxide Level 35 mEQ/L (20-30) H Anion Gap 10 (5-15) Blood Urea Nitrogen 69 mg/dL (7-23) H Creatinine 2.2 mg/dL (0.5-0.9) H Estimat Glomerular Filtration Rate mL/min (>60) Glucose Level 139 mg/dL (74-106) H Hemoglobin A1c 5.7 % (< 6.0) Uric Acid 9.6 mg/dL (3.0-7.5) H Calcium Level 8.0 mg/dL (8.6-10.2) L Phosphorus Level 3.7 mg/dL (2.5-4.8) Magnesium Level 1.8 mg/dL (1.7-2.5) Total Bilirubin 0.3 mg/dL (0.0-1.2) Gamma Glutamyl Transpeptidase 27 U/L (5-36) Aspartate Amino Transf (AST/SGOT) 35 U/L (5-40) Alanine Aminotransferase (ALT/SGPT) 24 U/L (3-33) Alkaline Phosphatase 87 U/L (35-104) Total Creatine Kinase 122 U/L (26-140) Troponin I < 0.30 ng/mL (<=0.30) < 0.30 ng/mL (<=0.30) C-Reactive Protein, Quantitative 6.0 mg/dL (< 0.5) H Pro-B-Type Natriuretic Peptide 7461 pg/mL (0-125) H Total Protein 6.4 g/dL (6.6-8.7) L Albumin 3.2 g/dL (3.5-5.2) L Globulin 3.2 g/dL Albumin/Globulin Ratio 1.0 (1.0-2.7) Triglycerides Level 113 mg/dL (< 150) Cholesterol Level 90 mg/dL (< 200) LDL Cholesterol 30 mg/dL (60-99) L HDL Cholesterol 37 mg/dL (> 60) Cholesterol/HDL Ratio 2.4 (3.3-4.4) L Digoxin Level 0.5 ng/mL (0.5-2.0) Microbiology Date/Time Source Procedure Growth Status 04/06/16 12:59 Sputum Gram Stain - Final Resulted 04/06/16 12:59 Sputum Sputum Culture Pending Resulted 04/06/16 12:55 Urine,Clean Catch Urine Culture - Preliminary NO GROWTH Resulted Objective HEAD AND NECK: Orally intubated with NG tube. LUNGS: Coarse rhonchi bilaterally. CARDIOVASCULAR: Shows irregularly irregular S1 and S2 with no gallop or murmur. ABDOMEN: Morbidly obese. EXTREMITIES: There is 1+ pitting edema. JOHN NUÑEZ Apr 07, 2016 14:42
[2016-04-07] MEDS ORDERED: Digoxin Elixir 0.125mg NG ONE (15:00)
--- NOTE | 2016-04-07 16:22 | Diagnostic Imaging Report ---
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 The left upper extremity was prepped with alcohol. All elements of maximal sterile barrier technique were followed including usage of a cap, mask, sterile gown, sterile gloves, hand hygiene and a large sterile sheet. Sonographic evaluation of the upper extremity was performed demonstrating a patent and compressible brachial vein. Access was obtained under real-time ultrasound guidance and digital image was saved and archived. An .018 wire was introduced. Needle exchanged for a 5 Gambian peel-away sheath. Measurements were obtained. A 5 [place]ian dual-lumen Power PICC line catheter was cut to 40 cm and introduced over the wire. Peel-away sheath and wire were removed.Catheter was secured to the skin using 2-0 Prolene suture. Both ports aspirate and flush easily. Post procedure chest x-ray demonstrates good position of the PICC line catheter projected over the mediastinum. This is likely in the left innominate vein.. Impression: Successful placement of an upper extremity PICC line catheter
--- NOTE | 2016-04-07 18:32 | General Progress Note ---
Assessment/Plan Assessment/Plan diagnosis 1. Acute hypoxemic and hypercapnic respiratory failure requiring intubation. 2. Acute kidney injury. 3. Morbid obesity. 4. Hyperkalemia. 5. Diabetes mellitus. 6. Congestive heart failure. 7. Chronic obstructive pulmonary disease. 8. Pulmonary hypertension. plan: -continue icu care -repeat chest xray -vent support per Dr. Anju mason iv antibioitics per Dr. Milan -nephrology input appreciated -cardiology input appreciated FULL code Subjective Allergies: Coded Allergies: AMOXICILLIN (Verified Allergy, Mild, RASH, 12/25/09) PENICILLINS (Unverified Allergy, Unknown, 04/06/16) Subjective This is an addendum to progress noted from earlier today Objective Last 24 Hour Vital Signs Date Time Temp Pulse Resp B/P Pulse Ox O2 Delivery O2 Flow Rate FiO2 04/07/16 17:00 94 24 128/63 100 Mechanical Ventilator 70 04/07/16 16:48 90 22 70 04/07/16 16:00 100 04/07/16 16:00 98 21 126/66 100 Mechanical Ventilator 70 04/07/16 15:55 70 04/07/16 15:38 92 04/07/16 15:37 96 108/54 04/07/16 15:00 96 21 108/54 100 Mechanical Ventilator 70 04/07/16 14:52 100 16 70 04/07/16 14:00 101 20 135/65 99 Mechanical Ventilator 70 04/07/16 13:05 94 17 70 04/07/16 13:00 101 22 101/64 99 Mechanical Ventilator 70 04/07/16 12:00 70 04/07/16 12:00 97.8 99 24 114/56 97 Mechanical Ventilator 70 04/07/16 12:00 99 04/07/16 11:00 100 20 98/37 99 Mechanical Ventilator 70 04/07/16 10:56 102 20 70 04/07/16 10:00 96 19 103/55 99 Mechanical Ventilator 70 04/07/16 09:19 85 18 70 04/07/16 09:00 89 22 110/58 100 Mechanical Ventilator 70 04/07/16 08:00 70 04/07/16 08:00 91 04/07/16 08:00 98.0 89 14 98/50 100 Mechanical Ventilator 70 04/07/16 07:00 92 15 109/55 99 Mechanical Ventilator 70 04/07/16 06:40 95 18 70 04/07/16 06:00 90 18 100/48 99 Mechanical Ventilator 70 04/07/16 05:00 93 18 96/48 100 Mechanical Ventilator 70 04/07/16 04:45 83 16 70 04/07/16 04:00 70 04/07/16 04:00 97.6 92 18 126/71 99 Mechanical Ventilator 70 04/07/16 04:00 90 04/07/16 03:18 85 16 70 04/07/16 03:00 86 16 92/47 99 Mechanical Ventilator 70 04/07/16 02:00 88 18 114/74 100 Mechanical Ventilator 70 04/07/16 01:21 87 16 70 04/07/16 01:00 81 18 91/47 100 Mechanical Ventilator 70 04/07/16 00:00 70 04/07/16 00:00 89 04/07/16 00:00 97.4 81 18 91/47 100 Mechanical Ventilator 70 04/06/16 23:00 80 16 70 04/06/16 23:00 75 18 96/42 100 Mechanical Ventilator 70 04/06/16 22:00 75 17 96/42 100 Mechanical Ventilator 70 04/06/16 21:53 86 17 70 04/06/16 21:00 82 17 99/59 100 Mechanical Ventilator 70 04/06/16 20:00 70 04/06/16 20:00 97.8 82 19 87/45 100 Mechanical Ventilator 70 04/06/16 20:00 89 04/06/16 19:23 82 16 70 04/06/16 19:00 85 16 85/43 100 Mechanical Ventilator 70 Intake and Output 04/06/16 04/07/16 19:00 07:00 Intake Total 695 ml 1000 ml Output Total 275 ml 471 ml Balance 420 ml 529 ml Intake Oral 0 ml Free Water 90 ml 60 ml IV Total 345 ml 655 ml Tube Feeding 240 ml 285 ml Other 20 ml Output Urine Total 275 ml 470 ml Stool Total 1 ml # Bowel Movements 1 Laboratory Tests 04/07/16 04:30: White Blood Count 12.3H, Red Blood Count 3.30L, Hemoglobin 9.1L, Hematocrit 29.3L, Mean Corpuscular Volume 89, Mean Corpuscular Hemoglobin 27.5, Mean Corpuscular Hemoglobin Concent 31.1L, Red Cell Distribution Width 16.0H, Platelet Count 169, Mean Platelet Volume 6.3L, Neutrophils (%) (Auto) 84.4H, Lymphocytes (%) (Auto) 7.3L, Monocytes (%) (Auto) 7.7, Eosinophils (%) (Auto) 0.1, Basophils (%) (Auto) 0.5, Prothrombin Time 15.7H, Prothromb Time International Ratio 1.5H, Activated Partial Thromboplast Time 27, Sodium Level 141, Potassium Level 5.3H, Chloride Level 96L, Carbon Dioxide Level 35H, Anion Gap 10, Blood Urea Nitrogen 69H, Creatinine 2.2H, Estimat Glomerular Filtration Rate , Glucose Level 139H, Hemoglobin A1c 5.7, Uric Acid 9.6H, Calcium Level 8.0L, Phosphorus Level 3.7, Magnesium Level 1.8, Total Bilirubin 0.3, Gamma Glutamyl Transpeptidase 27, Aspartate Amino Transf (AST/SGOT) 35, Alanine Aminotransferase (ALT/SGPT) 24, Alkaline Phosphatase 87, Total Creatine Kinase 122, Troponin I < 0.30, C-Reactive Protein, Quantitative 6.0H, Pro-B-Type Natriuretic Peptide 7461H, Total Protein 6.4L, Albumin 3.2L, Globulin 3.2, Albumin/Globulin Ratio 1.0, Triglycerides Level 113, Cholesterol Level 90, LDL Cholesterol 30L, HDL Cholesterol 37, Cholesterol/HDL Ratio 2.4L, Digoxin Level 0.5 04/07/16 10:25: Troponin I < 0.30 Height (Feet): 5 Height (Inches): 8.00 Weight (Pounds): 350 General Appearance: WD/WN, alert, overweight, morbidly obese EENT: PERRL/EOMI, other - orally intubated Neck: non-tender Cardiovascular: normal rate, regular rhythm Respiratory/Chest: crackles/rales Abdomen: non tender Genitourinary/Rectal: other - indwelling folley cath Extremities: non-tender Edema: no edema noted Arm (L), no edema noted Arm (R), no edema noted Leg (L), no edema noted Leg (R), no edema noted Pedal (L), no edema noted Pedal (R), no edema noted Generalized Neurologic: alert, responsive Skin: normal pigmentation Lymphatic: normal anterior cervical (L), normal anterior cervical (R), normal axillary (L), normal axillary (R), normal inguinal (L), normal inguinal (R), normal other, normal posterior cervical (L), normal posterior cervical (R), normal submandibular (L), normal submandibular (R), normal supraclavicular (L), normal supraclavicular (R) Manny Nolan MD Apr 07, 2016 18:32
--- NOTE | 2016-04-07 23:21 | Cardiology Report ---
APPROVED REPORT EKG Measurement Heart [id number] Atrial fibrillation Low voltage QRS T wave abnormality, consider lateral ischemia Prolonged QT Abnormal ECG
--- NOTE | 2016-04-07 23:25 | Cardiology Report ---
APPROVED REPORT EKG Measurement Heart [id number] IN 168P [id number] Suspect arm lead reversal, interpretation assumes no reversal Undetermined rhythm Possible Right ventricular hypertrophy Septal infarct, age undetermined Lateral infarct, age undetermined Abnormal ECG
[2016-04-08] VITALS (24 sets, daily range): BP systolic 102–149; BP diastolic 46–73
[2016-04-08] MEDS: LORazepam Inj 2mg/ml 1ml IV PRN ×3 (01:47→16:20)
[2016-04-08] MEDS: Aztreonam Inj 0.5 GM in D5W 55 ML IVPB SCH ×3 (05:10→22:12)
[2016-04-08] MEDS: Vancomycin 750mg/D5W 275ml IVPB SCH ×2 (05:34)
[2016-04-08] MEDS: NovoLOG Insulin Flexpen SUBQ SCH ×4 (05:36→20:54)
[2016-04-08 06:22] LABS: BASOPHILS % (AUTO) 0.4 % (0.0-2.0); EOSINOPHILS % (AUTO) 1.8 % (0.0-3.0); MEAN CORPUSCULAR HEMOGLOBIN 27.7 PG (27.0-31.0); MEAN CORPUSCULAR HGB CONC 30.8 G/DL (32.0-36.0); MEAN CORPUSCULAR VOLUME 90 FL (80-99); MEAN PLATELET VOLUME 5.7 FL (6.5-10.1); MONOCYTES % (AUTO) 8.5 % (1.0-10.0); NEUTROPHILS % (AUTO) 76.3 % (45.0-75.0); PLATELET COUNT 163 K/UL (150-450); RED BLOOD COUNT 2.94 M/UL (4.20-5.40); RED CELL DISTRIBUTION WIDTH 16.9 % (11.6-14.8)
[2016-04-08 06:39] LABS: TROPONIN I < 0.30 ng/mL (<=0.30)
[2016-04-08 07:26] LABS: ALANINE AMINOTRANSFERASE 18 U/L (3-33); ALBUMIN/GLOBULIN RATIO 0.9 (1.0-2.7); ANION GAP 11 (5-15); ASPARTATE AMINO TRANSFERASE 22 U/L (5-40); CALCIUM 7.8 mg/dL (8.6-10.2); CARBON DIOXIDE 36 mEQ/L (20-30); CHLORIDE 96 mEQ/L (98-107); CREATININE 2.1 mg/dL (0.5-0.9); HEMOLYSIS 8; SODIUM 143 mEQ/L (135-145); TOTAL PROTEIN 6.2 g/dL (6.6-8.7)
[2016-04-08 07:45] LABS: CRP QUANT 4.5 mg/dL (< 0.5); MAGNESIUM 1.8 mg/dL (1.7-2.5); URIC ACID 9.1 mg/dL (3.0-7.5)
--- NOTE | 2016-04-08 08:45 | Cardiology Report ---
APPROVED REPORT EXAM: Two-dimensional and M-mode echocardiogram with Doppler and color Doppler. INDICATION Atrial Fibrillation M-Mode DIMENSIONS IVSd1.1 (0.7-1.1cm)Left Atrium (MM)4.9 (1.6-4.0cm) LVDd3.9 (3.5-5.6cm)Aortic Root3.3 (2.0-3.7cm) PWd0.8 (0.7-1.1cm)Aortic Cusp Exc.2.0 (1.5-2.0cm) LVDs3.6 (2.5-4.0cm) PWs1.0 cm Technically very difficult study due to poor acoustic windows. Limited study due to lack of apical windows. Normal left ventricular chamber size, systolic function and wall motion. Left ventricular ejection fraction estimated to be 55-60%. No evidence of left ventricular hypertrophy. Small posterior pericardial effusion. Large posterior pleural effusion. Mild left atrial enlargement. Focal aortic valve sclerosis with adequate cusp excursion Thickened mitral valve leaflets with normal excursion. Mitral annulus and aortic root calcification. Pulmonic valve not well visualized. Normal tricuspid valve structure. IVC not obtainable. A color flow and spectral Doppler study was performed and revealed: Mild mitral regurgitation. Moderate tricuspid regurgitation. Tricuspid systolic velocities suggests peak right ventricular systolic pressure of 29 mmHg
--- NOTE | 2016-04-08 09:55 | General Progress Note ---
Assessment/Plan Status: stable Status Narrative Cr stable Assessment/Plan status: Acute renal failure- Acute Respiratory Failure Anemia Morbid Obesity CHF ? Sepsis Plan: slow hydrate- Calcium supplements with Vit D Optimize cardiac and pulmonary status- Avoid Nephrotoxics- monitor renal parameters Urine studies- Keep BP over 100 syst Antibiotics Subjective ROS Limited/Unobtainable: Yes Allergies: Coded Allergies: AMOXICILLIN (Verified Allergy, Mild, RASH, 12/25/09) PENICILLINS (Unverified Allergy, Unknown, 04/06/16) Objective Last 24 Hour Vital Signs Date Time Temp Pulse Resp B/P Pulse Ox O2 Delivery O2 Flow Rate FiO2 04/08/16 09:06 90 20 40 04/08/16 07:01 79 16 40 04/08/16 07:00 82 16 129/67 96 Mechanical Ventilator 60 04/08/16 06:00 81 16 107/47 97 Mechanical Ventilator 60 04/08/16 05:33 85 123/55 04/08/16 05:17 85 18 40 04/08/16 05:00 90 17 123/55 97 Mechanical Ventilator 60 04/08/16 04:00 98.5 87 20 126/72 98 Mechanical Ventilator 60 04/08/16 04:00 60 04/08/16 04:00 87 04/08/16 03:14 93 16 60 04/08/16 03:00 92 19 113/65 94 Mechanical Ventilator 60 04/08/16 02:00 93 13 118/62 98 Mechanical Ventilator 60 04/08/16 01:21 88 18 60 04/08/16 01:00 87 20 136/62 98 Mechanical Ventilator 60 04/08/16 00:00 98.1 79 16 102/46 99 Mechanical Ventilator 60 04/08/16 00:00 79 04/08/16 00:00 60 04/07/16 23:16 89 16 60 04/07/16 23:00 88 16 107/45 98 Mechanical Ventilator 60 04/07/16 22:44 95 112/50 04/07/16 22:00 94 17 112/50 99 Mechanical Ventilator 60 04/07/16 21:30 92 16 60 04/07/16 21:00 89 14 138/66 98 Mechanical Ventilator 60 04/07/16 20:00 60 04/07/16 20:00 98.3 92 19 111/50 98 Mechanical Ventilator 60 04/07/16 20:00 92 04/07/16 19:00 87 17 111/53 99 Mechanical Ventilator 60 04/07/16 18:37 88 18 110/58 100 Mechanical Ventilator 60 04/07/16 18:34 83 16 60 04/07/16 18:00 100 23 119/57 99 Mechanical Ventilator 70 04/07/16 17:00 94 24 128/63 100 Mechanical Ventilator 70 04/07/16 16:48 90 22 70 04/07/16 16:00 100 04/07/16 16:00 98 21 126/66 100 Mechanical Ventilator 70 04/07/16 15:55 70 04/07/16 15:38 92 04/07/16 15:37 96 108/54 04/07/16 15:00 96 21 108/54 100 Mechanical Ventilator 70 04/07/16 14:52 100 16 70 04/07/16 14:00 101 20 135/65 99 Mechanical Ventilator 70 04/07/16 13:05 94 17 70 04/07/16 13:00 101 22 101/64 99 Mechanical Ventilator 70 04/07/16 12:00 70 04/07/16 12:00 97.8 99 24 114/56 97 Mechanical Ventilator 70 04/07/16 12:00 99 04/07/16 11:00 100 20 98/37 99 Mechanical Ventilator 70 04/07/16 10:56 102 20 70 04/07/16 10:00 96 19 103/55 99 Mechanical Ventilator 70 Intake and Output 04/07/16 04/08/16 19:00 07:00 Intake Total 1485.000 ml 1303.708 ml Output Total 1145 ml 1155 ml Balance 340.000 ml 148.708 ml Free Water 50 ml 40 ml IV Total 985.000 ml 843.708 ml Tube Feeding 400 ml 420 ml Other 50 ml Output Urine Total 1145 ml 1155 ml # Bowel Movements 2 Laboratory Tests 04/07/16 10:25: Troponin I < 0.30 04/08/16 04:00: Troponin I < 0.30, White Blood Count 8.0, Red Blood Count 2.94L, Hemoglobin 8.1L , Hematocrit 26.4L, Mean Corpuscular Volume 90, Mean Corpuscular Hemoglobin 27.7 , Mean Corpuscular Hemoglobin Concent 30.8L, Red Cell Distribution Width 16.9H, Platelet Count 163, Mean Platelet Volume 5.7L, Neutrophils (%) (Auto) 76.3H, Lymphocytes (%) (Auto) 13.0L, Monocytes (%) (Auto) 8.5, Eosinophils (%) (Auto) 1.8, Basophils (%) (Auto) 0.4, Urine Eosinophils None seen, Sodium Level 143, Potassium Level 4.0, Chloride Level 96L, Carbon Dioxide Level 36H, Anion Gap 11 , Blood Urea Nitrogen 69H, Creatinine 2.1H, Estimat Glomerular Filtration Rate , Glucose Level 146H, Lactic Acid Level 0.80, Uric Acid 9.1H, Calcium Level 7.8L , Phosphorus Level 3.0, Magnesium Level 1.8, Total Bilirubin 0.2, Gamma Glutamyl Transpeptidase 21, Aspartate Amino Transf (AST/SGOT) 22, Alanine Aminotransferase (ALT/SGPT) 18, Alkaline Phosphatase 64, C-Reactive Protein, Quantitative 4.5H, Pro-B-Type Natriuretic Peptide 4641H, Total Protein 6.2L, Albumin 3.0L, Globulin 3.2, Albumin/Globulin Ratio 0.9L Height (Feet): 5 Height (Inches): 8.00 Weight (Pounds): 350 General Appearance: no apparent distress Cardiovascular: tachycardia Respiratory/Chest: decreased breath sounds Abdomen: soft COURTNEY LOPEZ Apr 08, 2016 09:55
[2016-04-08] MEDS: Heparin 5000 units/ml inj SUBQ SCH ×2 (10:13→20:51)
[2016-04-08] MEDS: Pantoprazole Inj IV SCH (10:14)
[2016-04-08] MEDS: Digoxin Elixir 0.125mg NG SCH (11:52)
[2016-04-08] MEDS: D5NS 1,000 ML IV SCH (11:53)
--- NOTE | 2016-04-08 12:06 | Pulmonolgy Critical Care Note ---
Critical Care - Asmt/Plan Problems: (1) Acute respiratory failure with hypoxia and hypercarbia (2) COPD exacerbation (3) Pneumonia (4) Atrial fibrillation with RVR (5) Morbid obesity Respiratory: adjust tidal volume, monitor respiratory rate, adjust FIO2 Cardiac: continue pressors, continue to monitor HR/BP Renal: F/U I&O, check electrolytes Infectious Disease: check cultures Gastrointestinal: continue feedings/current rate Endocrine: monitor blood sugar, check TSH Hematologic: monitor H/H Neurologic: PRN Ativan, PRN Morphine Affect: PRN ativan Prophylaxis: Protonix, Heparin Disposition: keep in ICU Notes 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: 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, cardio 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: nurses, consultants, 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 - Objective Last 24 Hour Vital Signs Date Time Temp Pulse Resp B/P Pulse Ox O2 Delivery O2 Flow Rate FiO2 04/08/16 11:52 88 04/08/16 10:40 87 15 40 04/08/16 10:00 98.9 86 18 117/52 95 Mechanical Ventilator 60 04/08/16 09:06 90 20 40 04/08/16 09:00 87 20 136/59 96 Mechanical Ventilator 60 04/08/16 08:00 98.7 89 19 127/64 96 Mechanical Ventilator 60 04/08/16 08:00 82 04/08/16 07:01 79 16 40 04/08/16 07:00 82 16 129/67 96 Mechanical Ventilator 60 04/08/16 06:00 81 16 107/47 97 Mechanical Ventilator 60 04/08/16 05:33 85 123/55 04/08/16 05:17 85 18 40 04/08/16 05:00 90 17 123/55 97 Mechanical Ventilator 60 04/08/16 04:00 98.5 87 20 126/72 98 Mechanical Ventilator 60 04/08/16 04:00 60 04/08/16 04:00 87 04/08/16 03:14 93 16 60 04/08/16 03:00 92 19 113/65 94 Mechanical Ventilator 60 04/08/16 02:00 93 13 118/62 98 Mechanical Ventilator 60 04/08/16 01:21 88 18 60 04/08/16 01:00 87 20 136/62 98 Mechanical Ventilator 60 04/08/16 00:00 98.1 79 16 102/46 99 Mechanical Ventilator 60 04/08/16 00:00 79 04/08/16 00:00 60 04/07/16 23:16 89 16 60 04/07/16 23:00 88 16 107/45 98 Mechanical Ventilator 60 04/07/16 22:44 95 112/50 04/07/16 22:00 94 17 112/50 99 Mechanical Ventilator 60 04/07/16 21:30 92 16 60 04/07/16 21:00 89 14 138/66 98 Mechanical Ventilator 60 04/07/16 20:00 60 04/07/16 20:00 98.3 92 19 111/50 98 Mechanical Ventilator 60 04/07/16 20:00 92 04/07/16 19:00 87 17 111/53 99 Mechanical Ventilator 60 04/07/16 18:37 88 18 110/58 100 Mechanical Ventilator 60 04/07/16 18:34 83 16 60 04/07/16 18:00 100 23 119/57 99 Mechanical Ventilator 70 04/07/16 17:00 94 24 128/63 100 Mechanical Ventilator 70 04/07/16 16:48 90 22 70 04/07/16 16:00 100 04/07/16 16:00 98 21 126/66 100 Mechanical Ventilator 70 04/07/16 15:55 70 04/07/16 15:38 92 04/07/16 15:37 96 108/54 04/07/16 15:00 96 21 108/54 100 Mechanical Ventilator 70 04/07/16 14:52 100 16 70 04/07/16 14:00 101 20 135/65 99 Mechanical Ventilator 70 04/07/16 13:05 94 17 70 04/07/16 13:00 101 22 101/64 99 Mechanical Ventilator 70 Status: awake Condition: critical HEENT: atraumatic Neck: full ROM Lungs: chest wall tender Heart: HR/BP stable, HR/BP unstable Abdomen: soft, non-tender, feeding tube Extremities: no C/C/E Micro: Microbiology Date/Time Source Procedure Growth Status 04/06/16 06:55 Blood Blood Culture - Preliminary NO GROWTH AFTER 24 HOURS Resulted 04/06/16 06:55 Blood Blood Culture - Preliminary NO GROWTH AFTER 24 HOURS Resulted 04/06/16 12:59 Sputum Gram Stain - Final Complete 04/06/16 12:59 Sputum Sputum Culture - Final NORMAL UPPER RESPIRATORY MANNIE PRESENT Complete 04/06/16 08:28 Nasal Nares MRSA Culture - Final NO METHICILLIN RESISTANT STAPH AUREUS... Complete 04/06/16 12:55 Urine,Clean Catch Urine Culture - Preliminary NO GROWTH AFTER 24 HOURS Resulted 04/06/16 08:28 Rectum VRE Culture - Final Enterococcus Faecium - Vre Complete Accucheck: 168 Critical Care - Subjective ROS Limited/Unobtainable: Yes ICU Day: 3 Intubation Day: 3 Condition: critical EKG Rhythm: Sinus Rhythm FI02: 40 Vent Support Breath Rate: 16 Vent Support Mode: AC Vent Tidal Volume: 500 Sputum Amount: Moderate PEEP: 5.0 PIP: 35 Tube Feeding Amount: 35 I&O: Intake and Output 04/07/16 04/08/16 19:00 07:00 Intake Total 1485.000 ml 1303.708 ml Output Total 1145 ml 1155 ml Balance 340.000 ml 148.708 ml Free Water 50 ml 40 ml IV Total 985.000 ml 843.708 ml Tube Feeding 400 ml 420 ml Other 50 ml Output Urine Total 1145 ml 1155 ml # Bowel Movements 2 CXR: no change ET-Tube: 7.0 ET Position: 21 Labs: Laboratory Tests Test 04/08/16 04:00 White Blood Count 8.0 K/UL (4.8-10.8) Red Blood Count 2.94 M/UL (4.20-5.40) L Hemoglobin 8.1 G/DL (12.0-16.0) L Hematocrit 26.4 % (37.0-47.0) L Mean Corpuscular Volume 90 FL (80-99) Mean Corpuscular Hemoglobin 27.7 PG (27.0-31.0) Mean Corpuscular Hemoglobin Concent 30.8 G/DL (32.0-36.0) L Red Cell Distribution Width 16.9 % (11.6-14.8) H Platelet Count 163 K/UL (150-450) Mean Platelet Volume 5.7 FL (6.5-10.1) L Neutrophils (%) (Auto) 76.3 % (45.0-75.0) H Lymphocytes (%) (Auto) 13.0 % (20.0-45.0) L Monocytes (%) (Auto) 8.5 % (1.0-10.0) Eosinophils (%) (Auto) 1.8 % (0.0-3.0) Basophils (%) (Auto) 0.4 % (0.0-2.0) Urine Eosinophils None seen Sodium Level 143 mEQ/L (135-145) Potassium Level 4.0 mEQ/L (3.4-4.9) Chloride Level 96 mEQ/L (98-107) L Carbon Dioxide Level 36 mEQ/L (20-30) H Anion Gap 11 (5-15) Blood Urea Nitrogen 69 mg/dL (7-23) H Creatinine 2.1 mg/dL (0.5-0.9) H Estimat Glomerular Filtration Rate mL/min (>60) Glucose Level 146 mg/dL (74-106) H Lactic Acid Level 0.80 mmol/L (0.66-2.22) Uric Acid 9.1 mg/dL (3.0-7.5) H Calcium Level 7.8 mg/dL (8.6-10.2) L Phosphorus Level 3.0 mg/dL (2.5-4.8) Magnesium Level 1.8 mg/dL (1.7-2.5) Total Bilirubin 0.2 mg/dL (0.0-1.2) Gamma Glutamyl Transpeptidase 21 U/L (5-36) Aspartate Amino Transf (AST/SGOT) 22 U/L (5-40) Alanine Aminotransferase (ALT/SGPT) 18 U/L (3-33) Alkaline Phosphatase 64 U/L (35-104) Troponin I < 0.30 ng/mL (<=0.30) C-Reactive Protein, Quantitative 4.5 mg/dL (< 0.5) H Pro-B-Type Natriuretic Peptide 4641 pg/mL (0-125) H Total Protein 6.2 g/dL (6.6-8.7) L Albumin 3.0 g/dL (3.5-5.2) L Globulin 3.2 g/dL Albumin/Globulin Ratio 0.9 (1.0-2.7) L ARASH MIRANDA Apr 08, 2016 12:06
[2016-04-08] MEDS: Calcium Carbonate 650mg Tab NG SCH ×2 (13:33→18:34)
[2016-04-08] MEDS: Vitamin D 1000 IU Tab GT SCH (13:34)
[2016-04-08] MEDS ORDERED: 1/2 NS 1000ml IV ONE (14:12)
[2016-04-08] MEDS ORDERED: Tubing IV Secondary IV ONE (14:12)
[2016-04-08] MEDS ORDERED: D5NS 1000ml IV ONE (14:12)
--- NOTE | 2016-04-08 15:10 | Diagnostic Imaging Report ---
Indication: Dyspnea Comparison: None A single view chest radiograph was obtained. Findings: Exam limited rotation. Central pulmonary vascularity is prominent. A PICC line is present. The tip projects over the aortic arch and is likely within the innominate vein. Impression: PICC line within the left innominate vein. No change otherwise
[2016-04-08] MEDS ORDERED: Miralax 17gm pkt GT PRN (15:13)
--- NOTE | 2016-04-08 16:19 | Cardiac Electrophysiology PN ---
Assessment/Plan Assessment/Plan 1. Respiratory failure, likely due to chronic obstructive pulmonary disease and volume overload in view of renal failure with BNP is 7700. On VEnt. Echocardiogram showed ejection fraction of 55% to 60%. 2. Atrial fibrillation, rapid ventricular response. Avoid beta-blockers. Betetr with Dig and Cardizem 30 mg three times a day 3. Lower extremity cellulitis, on IV antibiotics with vancomycin and aztreonam. 4. Morbid obesity. 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 Fib rate better controlled on Digoxin. Objective Last 24 Hour Vital Signs Date Time Temp Pulse Resp B/P Pulse Ox O2 Delivery O2 Flow Rate FiO2 04/08/16 15:00 81 16 149/73 96 Mechanical Ventilator 60 04/08/16 14:37 82 17 40 04/08/16 14:00 98.7 77 16 134/68 95 Mechanical Ventilator 60 04/08/16 13:35 74 117/62 04/08/16 13:25 75 15 40 04/08/16 13:00 75 16 117/62 97 Mechanical Ventilator 60 04/08/16 12:00 60 04/08/16 12:00 98.6 83 15 136/71 96 Mechanical Ventilator 60 04/08/16 11:52 88 04/08/16 11:00 86 17 127/61 95 Mechanical Ventilator 60 04/08/16 10:40 87 15 40 04/08/16 10:00 98.9 86 18 117/52 95 Mechanical Ventilator 60 04/08/16 09:06 90 20 40 04/08/16 09:00 87 20 136/59 96 Mechanical Ventilator 60 04/08/16 08:00 98.7 89 19 127/64 96 Mechanical Ventilator 60 04/08/16 08:00 60 04/08/16 08:00 82 04/08/16 07:01 79 16 40 04/08/16 07:00 82 16 129/67 96 Mechanical Ventilator 60 04/08/16 06:00 81 16 107/47 97 Mechanical Ventilator 60 04/08/16 05:33 85 123/55 04/08/16 05:17 85 18 40 04/08/16 05:00 90 17 123/55 97 Mechanical Ventilator 60 04/08/16 04:00 98.5 87 20 126/72 98 Mechanical Ventilator 60 04/08/16 04:00 60 04/08/16 04:00 87 04/08/16 03:14 93 16 60 04/08/16 03:00 92 19 113/65 94 Mechanical Ventilator 60 04/08/16 02:00 93 13 118/62 98 Mechanical Ventilator 60 04/08/16 01:21 88 18 60 04/08/16 01:00 87 20 136/62 98 Mechanical Ventilator 60 04/08/16 00:00 98.1 79 16 102/46 99 Mechanical Ventilator 60 04/08/16 00:00 79 04/08/16 00:00 60 04/07/16 23:16 89 16 60 04/07/16 23:00 88 16 107/45 98 Mechanical Ventilator 60 04/07/16 22:44 95 112/50 04/07/16 22:00 94 17 112/50 99 Mechanical Ventilator 60 04/07/16 21:30 92 16 60 04/07/16 21:00 89 14 138/66 98 Mechanical Ventilator 60 04/07/16 20:00 60 04/07/16 20:00 98.3 92 19 111/50 98 Mechanical Ventilator 60 04/07/16 20:00 92 04/07/16 19:00 87 17 111/53 99 Mechanical Ventilator 60 04/07/16 18:37 88 18 110/58 100 Mechanical Ventilator 60 04/07/16 18:34 83 16 60 04/07/16 18:00 100 23 119/57 99 Mechanical Ventilator 70 04/07/16 17:00 94 24 128/63 100 Mechanical Ventilator 70 04/07/16 16:48 90 22 70 Intake and Output 04/07/16 04/08/16 19:00 07:00 Intake Total 1485.000 ml 1303.708 ml Output Total 1145 ml 1155 ml Balance 340.000 ml 148.708 ml Free Water 50 ml 40 ml IV Total 985.000 ml 843.708 ml Tube Feeding 400 ml 420 ml Other 50 ml Output Urine Total 1145 ml 1155 ml # Bowel Movements 2 Laboratory Tests Test 04/08/16 04:00 White Blood Count 8.0 K/UL (4.8-10.8) Red Blood Count 2.94 M/UL (4.20-5.40) L Hemoglobin 8.1 G/DL (12.0-16.0) L Hematocrit 26.4 % (37.0-47.0) L Mean Corpuscular Volume 90 FL (80-99) Mean Corpuscular Hemoglobin 27.7 PG (27.0-31.0) Mean Corpuscular Hemoglobin Concent 30.8 G/DL (32.0-36.0) L Red Cell Distribution Width 16.9 % (11.6-14.8) H Platelet Count 163 K/UL (150-450) Mean Platelet Volume 5.7 FL (6.5-10.1) L Neutrophils (%) (Auto) 76.3 % (45.0-75.0) H Lymphocytes (%) (Auto) 13.0 % (20.0-45.0) L Monocytes (%) (Auto) 8.5 % (1.0-10.0) Eosinophils (%) (Auto) 1.8 % (0.0-3.0) Basophils (%) (Auto) 0.4 % (0.0-2.0) Urine Eosinophils None seen Sodium Level 143 mEQ/L (135-145) Potassium Level 4.0 mEQ/L (3.4-4.9) Chloride Level 96 mEQ/L (98-107) L Carbon Dioxide Level 36 mEQ/L (20-30) H Anion Gap 11 (5-15) Blood Urea Nitrogen 69 mg/dL (7-23) H Creatinine 2.1 mg/dL (0.5-0.9) H Estimat Glomerular Filtration Rate mL/min (>60) Glucose Level 146 mg/dL (74-106) H Lactic Acid Level 0.80 mmol/L (0.66-2.22) Uric Acid 9.1 mg/dL (3.0-7.5) H Calcium Level 7.8 mg/dL (8.6-10.2) L Phosphorus Level 3.0 mg/dL (2.5-4.8) Magnesium Level 1.8 mg/dL (1.7-2.5) Total Bilirubin 0.2 mg/dL (0.0-1.2) Gamma Glutamyl Transpeptidase 21 U/L (5-36) Aspartate Amino Transf (AST/SGOT) 22 U/L (5-40) Alanine Aminotransferase (ALT/SGPT) 18 U/L (3-33) Alkaline Phosphatase 64 U/L (35-104) Troponin I < 0.30 ng/mL (<=0.30) C-Reactive Protein, Quantitative 4.5 mg/dL (< 0.5) H Pro-B-Type Natriuretic Peptide 4641 pg/mL (0-125) H Total Protein 6.2 g/dL (6.6-8.7) L Albumin 3.0 g/dL (3.5-5.2) L Globulin 3.2 g/dL Albumin/Globulin Ratio 0.9 (1.0-2.7) L Microbiology Date/Time Source Procedure Growth Status 04/06/16 06:55 Blood Blood Culture - Preliminary NO GROWTH AFTER 24 HOURS Resulted 04/06/16 06:55 Blood Blood Culture - Preliminary NO GROWTH AFTER 24 HOURS Resulted 04/06/16 12:59 Sputum Gram Stain - Final Complete 04/06/16 12:59 Sputum Sputum Culture - Final NORMAL UPPER RESPIRATORY MANNIE PRESENT Complete 04/06/16 08:28 Nasal Nares MRSA Culture - Final NO METHICILLIN RESISTANT STAPH AUREUS... Complete 04/06/16 12:55 Urine,Clean Catch Urine Culture - Preliminary NO GROWTH AFTER 24 HOURS Resulted 04/06/16 08:28 Rectum VRE Culture - Final Enterococcus Faecium - Vre Complete Objective HEAD AND NECK: Orally intubated with NG tube. LUNGS: Coarse rhonchi bilaterally. CARDIOVASCULAR: Irregularly irregular S1 and S2 with no gallop or murmur. ABDOMEN: Morbidly obese. EXTREMITIES: There is 1+ pitting edema. JOHN NUÑEZ Apr 08, 2016 16:19
--- NOTE | 2016-04-08 20:42 | General Progress Note ---
Assessment/Plan Status: unchanged Assessment/Plan Diagnosis 1. Acute hypoxemic and hypercapnic respiratory failure requiring intubation. 2. Acute kidney injury. 3. Morbid obesity. 4. Hyperkalemia. 5. Diabetes mellitus. 6. Congestive heart failure. 7. Chronic obstructive pulmonary disease. 8. Pulmonary hypertension. plan: -continue icu care -daily labs -vent support per Dr. Rene -zoila iv antibioitics per Dr. Milan -nephrology input appreciated -cardiology input appreciated FULL code Subjective Date patient seen: Apr 08, 2016 Time patient seen: 08:10 ROS Limited/Unobtainable: Yes Allergies: Coded Allergies: AMOXICILLIN (Verified Allergy, Mild, RASH, 12/25/09) PENICILLINS (Unverified Allergy, Unknown, 04/06/16) Subjective This is an addendum to progress noted from earlier today Objective Last 24 Hour Vital Signs Date Time Temp Pulse Resp B/P Pulse Ox O2 Delivery O2 Flow Rate FiO2 04/08/16 18:56 80 16 40 04/08/16 18:00 98.6 85 20 128/61 97 Mechanical Ventilator 60 04/08/16 17:00 83 18 125/64 95 Mechanical Ventilator 60 04/08/16 16:51 83 17 40 04/08/16 16:00 82 04/08/16 16:00 98.9 83 18 130/58 95 Mechanical Ventilator 60 04/08/16 16:00 60 04/08/16 15:00 81 16 149/73 96 Mechanical Ventilator 60 04/08/16 14:37 82 17 40 04/08/16 14:00 98.7 77 16 134/68 95 Mechanical Ventilator 60 04/08/16 13:35 74 117/62 04/08/16 13:25 75 15 40 04/08/16 13:00 75 16 117/62 97 Mechanical Ventilator 60 04/08/16 12:00 60 04/08/16 12:00 88 04/08/16 12:00 98.6 83 15 136/71 96 Mechanical Ventilator 60 04/08/16 11:52 88 04/08/16 11:00 86 17 127/61 95 Mechanical Ventilator 60 04/08/16 10:40 87 15 40 04/08/16 10:00 98.9 86 18 117/52 95 Mechanical Ventilator 60 04/08/16 09:06 90 20 40 04/08/16 09:00 87 20 136/59 96 Mechanical Ventilator 60 04/08/16 08:00 98.7 89 19 127/64 96 Mechanical Ventilator 60 04/08/16 08:00 60 04/08/16 08:00 82 04/08/16 07:01 79 16 40 04/08/16 07:00 82 16 129/67 96 Mechanical Ventilator 60 04/08/16 06:00 81 16 107/47 97 Mechanical Ventilator 60 04/08/16 05:33 85 123/55 04/08/16 05:17 85 18 40 04/08/16 05:00 90 17 123/55 97 Mechanical Ventilator 60 04/08/16 04:00 98.5 87 20 126/72 98 Mechanical Ventilator 60 04/08/16 04:00 60 04/08/16 04:00 87 04/08/16 03:14 93 16 60 04/08/16 03:00 92 19 113/65 94 Mechanical Ventilator 60 04/08/16 02:00 93 13 118/62 98 Mechanical Ventilator 60 04/08/16 01:21 88 18 60 04/08/16 01:00 87 20 136/62 98 Mechanical Ventilator 60 04/08/16 00:00 98.1 79 16 102/46 99 Mechanical Ventilator 60 04/08/16 00:00 79 04/08/16 00:00 60 04/07/16 23:16 89 16 60 04/07/16 23:00 88 16 107/45 98 Mechanical Ventilator 60 04/07/16 22:44 95 112/50 04/07/16 22:00 94 17 112/50 99 Mechanical Ventilator 60 04/07/16 21:30 92 16 60 04/07/16 21:00 89 14 138/66 98 Mechanical Ventilator 60 Intake and Output 04/07/16 04/08/16 19:00 07:00 Intake Total 1485.000 ml 1303.708 ml Output Total 1145 ml 1155 ml Balance 340.000 ml 148.708 ml Free Water 50 ml 40 ml IV Total 985.000 ml 843.708 ml Tube Feeding 400 ml 420 ml Other 50 ml Output Urine Total 1145 ml 1155 ml # Bowel Movements 2 Laboratory Tests 04/08/16 04:00: White Blood Count 8.0, Red Blood Count 2.94L, Hemoglobin 8.1L, Hematocrit 26.4L , Mean Corpuscular Volume 90, Mean Corpuscular Hemoglobin 27.7, Mean Corpuscular Hemoglobin Concent 30.8L, Red Cell Distribution Width 16.9H, Platelet Count 163, Mean Platelet Volume 5.7L, Neutrophils (%) (Auto) 76.3H, Lymphocytes (%) (Auto) 13.0L, Monocytes (%) (Auto) 8.5, Eosinophils (%) (Auto) 1.8, Basophils (%) (Auto) 0.4, Urine Eosinophils None seen, Sodium Level 143, Potassium Level 4.0, Chloride Level 96L, Carbon Dioxide Level 36H, Anion Gap 11 , Blood Urea Nitrogen 69H, Creatinine 2.1H, Estimat Glomerular Filtration Rate , Glucose Level 146H, Lactic Acid Level 0.80, Uric Acid 9.1H, Calcium Level 7.8L , Phosphorus Level 3.0, Magnesium Level 1.8, Total Bilirubin 0.2, Gamma Glutamyl Transpeptidase 21, Aspartate Amino Transf (AST/SGOT) 22, Alanine Aminotransferase (ALT/SGPT) 18, Alkaline Phosphatase 64, Troponin I < 0.30, C- Reactive Protein, Quantitative 4.5H, Pro-B-Type Natriuretic Peptide 4641H, Total Protein 6.2L, Albumin 3.0L, Globulin 3.2, Albumin/Globulin Ratio 0.9L Height (Feet): 5 Height (Inches): 8.00 Weight (Pounds): 350 General Appearance: alert, moderate distress, morbidly obese EENT: PERRL/EOMI Neck: non-tender Cardiovascular: irregularly irregular Respiratory/Chest: decreased breath sounds Abdomen: normal bowel sounds, non tender Extremities: non-tender Edema: no edema noted Arm (L), no edema noted Arm (R), no edema noted Leg (L), no edema noted Leg (R), no edema noted Pedal (L), no edema noted Pedal (R), no edema noted 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
--- NOTE | 2016-04-08 21:39 | Infectious Diseases Prog Note ---
Assessment/Plan Assessment/Plan A: The patient is a 75-year-old female with Leukocytosis improving Sepsis Pneumonia LLExt Cellulitis VDRF Obesity CHF HTN COPD GERD. DM PLAN: Cont on Levaquin, vancomycin, and Azactam d# 3 Monitor CBC Monitor BMP. Monitor cultures (blood, sputum, and urine). Monitor renal function. Monitor CBC. Monitor chest x-ray. Vent support Subjective Constitutional: Denies: anorexia, chills, drenching sweats, fatigue, fever, no symptoms, other Allergies: Coded Allergies: AMOXICILLIN (Verified Allergy, Mild, RASH, 12/25/09) PENICILLINS (Unverified Allergy, Unknown, 04/06/16) Subjective on vent Objective Vital Signs Last 24 Hour Vital Signs Date Time Temp Pulse Resp B/P Pulse Ox O2 Delivery O2 Flow Rate FiO2 04/08/16 21:17 81 20 40 04/08/16 18:56 80 16 40 04/08/16 18:00 98.6 85 20 128/61 97 Mechanical Ventilator 60 04/08/16 17:00 83 18 125/64 95 Mechanical Ventilator 60 04/08/16 16:51 83 17 40 04/08/16 16:00 82 04/08/16 16:00 98.9 83 18 130/58 95 Mechanical Ventilator 60 04/08/16 16:00 60 04/08/16 15:00 81 16 149/73 96 Mechanical Ventilator 60 04/08/16 14:37 82 17 40 04/08/16 14:00 98.7 77 16 134/68 95 Mechanical Ventilator 60 04/08/16 13:35 74 117/62 04/08/16 13:25 75 15 40 04/08/16 13:00 75 16 117/62 97 Mechanical Ventilator 60 04/08/16 12:00 60 04/08/16 12:00 88 04/08/16 12:00 98.6 83 15 136/71 96 Mechanical Ventilator 60 04/08/16 11:52 88 04/08/16 11:00 86 17 127/61 95 Mechanical Ventilator 60 04/08/16 10:40 87 15 40 04/08/16 10:00 98.9 86 18 117/52 95 Mechanical Ventilator 60 04/08/16 09:06 90 20 40 04/08/16 09:00 87 20 136/59 96 Mechanical Ventilator 60 04/08/16 08:00 98.7 89 19 127/64 96 Mechanical Ventilator 60 04/08/16 08:00 60 04/08/16 08:00 82 04/08/16 07:01 79 16 40 04/08/16 07:00 82 16 129/67 96 Mechanical Ventilator 60 04/08/16 06:00 81 16 107/47 97 Mechanical Ventilator 60 04/08/16 05:33 85 123/55 04/08/16 05:17 85 18 40 04/08/16 05:00 90 17 123/55 97 Mechanical Ventilator 60 04/08/16 04:00 98.5 87 20 126/72 98 Mechanical Ventilator 60 04/08/16 04:00 60 04/08/16 04:00 87 04/08/16 03:14 93 16 60 04/08/16 03:00 92 19 113/65 94 Mechanical Ventilator 60 04/08/16 02:00 93 13 118/62 98 Mechanical Ventilator 60 04/08/16 01:21 88 18 60 04/08/16 01:00 87 20 136/62 98 Mechanical Ventilator 60 04/08/16 00:00 98.1 79 16 102/46 99 Mechanical Ventilator 60 04/08/16 00:00 79 04/08/16 00:00 60 04/07/16 23:16 89 16 60 04/07/16 23:00 88 16 107/45 98 Mechanical Ventilator 60 04/07/16 22:44 95 112/50 04/07/16 22:00 94 17 112/50 99 Mechanical Ventilator 60 Height (Feet): 5 Height (Inches): 8.00 Weight (Pounds): 350 HEENT: atraumatic Respiratory/Chest: lungs clear Cardiovascular: normal peripheral pulses Abdomen: no organomegaly Microbiology Date/Time Source Procedure Growth Status 04/06/16 06:55 Blood Blood Culture - Preliminary NO GROWTH AFTER 24 HOURS Resulted 04/06/16 06:55 Blood Blood Culture - Preliminary NO GROWTH AFTER 24 HOURS Resulted 04/06/16 12:59 Sputum Gram Stain - Final Complete 04/06/16 12:59 Sputum Sputum Culture - Final NORMAL UPPER RESPIRATORY MANNIE PRESENT Complete 04/06/16 08:28 Nasal Nares MRSA Culture - Final NO METHICILLIN RESISTANT STAPH AUREUS... Complete 04/06/16 12:55 Urine,Clean Catch Urine Culture - Preliminary NO GROWTH AFTER 24 HOURS Resulted 04/06/16 08:28 Rectum VRE Culture - Final Enterococcus Faecium - Vre Complete Laboratory Tests Test 04/08/16 04:00 White Blood Count 8.0 K/UL (4.8-10.8) Red Blood Count 2.94 M/UL (4.20-5.40) L Hemoglobin 8.1 G/DL (12.0-16.0) L Hematocrit 26.4 % (37.0-47.0) L Mean Corpuscular Volume 90 FL (80-99) Mean Corpuscular Hemoglobin 27.7 PG (27.0-31.0) Mean Corpuscular Hemoglobin Concent 30.8 G/DL (32.0-36.0) L Red Cell Distribution Width 16.9 % (11.6-14.8) H Platelet Count 163 K/UL (150-450) Mean Platelet Volume 5.7 FL (6.5-10.1) L Neutrophils (%) (Auto) 76.3 % (45.0-75.0) H Lymphocytes (%) (Auto) 13.0 % (20.0-45.0) L Monocytes (%) (Auto) 8.5 % (1.0-10.0) Eosinophils (%) (Auto) 1.8 % (0.0-3.0) Basophils (%) (Auto) 0.4 % (0.0-2.0) Urine Eosinophils None seen Sodium Level 143 mEQ/L (135-145) Potassium Level 4.0 mEQ/L (3.4-4.9) Chloride Level 96 mEQ/L (98-107) L Carbon Dioxide Level 36 mEQ/L (20-30) H Anion Gap 11 (5-15) Blood Urea Nitrogen 69 mg/dL (7-23) H Creatinine 2.1 mg/dL (0.5-0.9) H Estimat Glomerular Filtration Rate mL/min (>60) Glucose Level 146 mg/dL (74-106) H Lactic Acid Level 0.80 mmol/L (0.66-2.22) Uric Acid 9.1 mg/dL (3.0-7.5) H Calcium Level 7.8 mg/dL (8.6-10.2) L Phosphorus Level 3.0 mg/dL (2.5-4.8) Magnesium Level 1.8 mg/dL (1.7-2.5) Total Bilirubin 0.2 mg/dL (0.0-1.2) Gamma Glutamyl Transpeptidase 21 U/L (5-36) Aspartate Amino Transf (AST/SGOT) 22 U/L (5-40) Alanine Aminotransferase (ALT/SGPT) 18 U/L (3-33) Alkaline Phosphatase 64 U/L (35-104) Troponin I < 0.30 ng/mL (<=0.30) C-Reactive Protein, Quantitative 4.5 mg/dL (< 0.5) H Pro-B-Type Natriuretic Peptide 4641 pg/mL (0-125) H Total Protein 6.2 g/dL (6.6-8.7) L Albumin 3.0 g/dL (3.5-5.2) L Globulin 3.2 g/dL Albumin/Globulin Ratio 0.9 (1.0-2.7) L Current Medications Medications (Trade) Dose Ordered Sig/Kalyn Route PRN Reason Start Time Stop Time Status Last Admin Dose Admin Acetaminophen 650 mg 650 mg Q4H PRN RECTAL FEVER>100.5 04/06/16 10:52 05/06/16 10:29 Albuterol/ Ipratropium (DuoNeb 0.5-3(2.5)mg/3ml) 3 ml Q4H PRN HHN Shortness of Breath 04/06/16 10:30 04/11/16 10:29 Aztreonam 0.5 gm/ Dextrose 55 ml @ 110 mls/hr Q8HR IVPB 04/06/16 22:00 04/13/16 21:59 04/08/16 13:34 Calcium Carbonate (Calcium Carbonate) 650 mg THREE TIMES A DAY NG 04/08/16 13:00 05/08/16 12:59 04/08/16 18:34 Dextrose (Dextrose 50%) STAT PRN IV Hypoglycemia 04/06/16 10:30 05/06/16 10:29 Dextrose/Sodium Chloride (D5ns) 1,000 ml @ 75 mls/hr [id number] IV 04/08/16 11:00 05/08/16 10:59 04/08/16 11:53 Digoxin (Lanoxin) 0.125 mg DAILY NG 04/08/16 09:00 05/08/16 08:59 04/08/16 11:52 Diltiazem HCl (Cardizem) 30 mg EVERY 8 HOURS NG 04/08/16 15:13 05/07/16 14:59 Heparin Sodium (Porcine) (Heparin 5000 units/ml) 5,000 units EVERY 12 HOURS SUBQ 04/06/16 21:00 05/06/16 20:59 04/08/16 20:51 Insulin Aspart (NovoLOG) BEFORE MEALS AND HS SUBQ 04/06/16 11:30 05/06/16 11:29 04/08/16 20:54 Levofloxacin (Levaquin) 50 ml @ 50 mls/hr Q24H IVPB 04/07/16 15:00 04/14/16 14:59 04/08/16 14:41 Lorazepam (Ativan 2mg/ml 1ml) 0.5 mg Q4H PRN IV For Anxiety 04/06/16 10:30 04/13/16 10:29 04/08/16 16:20 Morphine Sulfate (Morphine Sulfate) 4 mg Q4H PRN IVP For Pain 04/06/16 11:00 04/13/16 10:59 Ondansetron HCl (Zofran) 4 mg Q6H PRN IVP Nausea & Vomiting 04/06/16 10:30 05/06/16 10:29 Pantoprazole (Protonix) 40 mg DAILY IV 04/06/16 10:30 05/06/16 10:29 04/08/16 10:14 Polyethylene Glycol (Miralax) 17 gm DAILYPRN PRN GT Constipation 04/08/16 15:13 05/06/16 10:59 Vancomycin HCl (Vanco rx to dose) 1 ea DAILY PRN MISC Per rx protocol 04/06/16 11:00 05/06/16 10:59 Vancomycin HCl 750 mg/Dextrose 275 ml @ 183.708 mls/hr Q24H IVPB 04/07/16 06:00 04/12/16 05:59 04/08/16 05:34 Vitamin D 5000 intlu 5,000 intlu DAILY GT 04/08/16 13:00 05/08/16 12:59 04/08/16 13:34 LINDSEY HILL M.D. Apr 08, 2016 21:39
[2016-04-09] VITALS (23 sets, daily range): BP systolic 99–174; BP diastolic 40–86
[2016-04-09 03:14] LABS: OSMOLALITY SERUM LC 318 mOsmol/kg (280-301)
[2016-04-09 06:07] LABS: MEAN CORPUSCULAR HEMOGLOBIN 27.4 PG (27.0-31.0); MEAN CORPUSCULAR HGB CONC 30.5 G/DL (32.0-36.0); MEAN CORPUSCULAR VOLUME 90 FL (80-99); PLATELET COUNT 122 K/UL (150-450); RED BLOOD COUNT 2.71 M/UL (4.20-5.40); RED CELL DISTRIBUTION WIDTH 17.1 % (11.6-14.8); WHITE BLOOD COUNT 5.8 K/UL (4.8-10.8)
[2016-04-09] MEDS: Aztreonam Inj 0.5 GM in D5W 55 ML IVPB SCH ×2 (06:08→14:07)
[2016-04-09] MEDS: Vancomycin 750mg/D5W 275ml IVPB SCH ×2 (06:09)
[2016-04-09] MEDS: NovoLOG Insulin Flexpen SUBQ SCH ×4 (06:17→18:00)
[2016-04-09 06:33] LABS: MAGNESIUM 1.9 mg/dL (1.7-2.5); PHOSPHORUS 2.7 mg/dL (2.5-4.8)
[2016-04-09 06:37] LABS: ALANINE AMINOTRANSFERASE 12 U/L (3-33); ANION GAP 8 (5-15); ASPARTATE AMINO TRANSFERASE 15 U/L (5-40); CALCIUM 8.1 mg/dL (8.6-10.2); CARBON DIOXIDE 38 mEQ/L (20-30); CHLORIDE 102 mEQ/L (98-107); CREATININE 1.9 mg/dL (0.5-0.9); HEMOLYSIS 2; POTASSIUM 3.6 mEQ/L (3.4-4.9); SODIUM 148 mEQ/L (135-145); TOTAL PROTEIN 5.8 g/dL (6.6-8.7)
[2016-04-09 08:06] LABS: EOSINOPHILS % (MANUAL) 2 % (0-3); LYMPHOCYTES % (MANUAL) 19 % (20-45); NEUTROPHILS % (MANUAL) 75 % (45-75); TOTAL CELLS COUNTED 100
[2016-04-09 08:07] LABS: ANISOCYTOSIS 1+; BAND NEUTROPHILS % (MANUAL) 0 % (0-8); BASOPHILS % (MANUAL) 0 % (0-2); HYPOCHROMASIA 1+; PLATELET ESTIMATE DECREASED; PLATELET MORPHOLOGY NORMAL
[2016-04-09] MEDS: Vitamin D 1000 IU Tab GT SCH (09:00)
--- NOTE | 2016-04-09 09:03 | General Progress Note ---
Assessment/Plan Status: stable - from renal stand, unchanged - from over all stand point Status Narrative H&H still low- Transfused yesterday Assessment/Plan status: Acute renal failure- Acute Respiratory Failure Anemia Morbid Obesity CHF ? Sepsis Plan: slow hydrate- Calcium supplements with Vit D on board- Optimize cardiac and pulmonary status- Avoid Nephrotoxics- monitor renal parameters Urine studies- Keep BP over 100 syst Antibiotics Subjective ROS Limited/Unobtainable: Yes Allergies: Coded Allergies: AMOXICILLIN (Verified Allergy, Mild, RASH, 12/25/09) PENICILLINS (Unverified Allergy, Unknown, 04/06/16) Objective Last 24 Hour Vital Signs Date Time Temp Pulse Resp B/P Pulse Ox O2 Delivery O2 Flow Rate FiO2 04/09/16 08:23 79 04/09/16 08:00 97.5 75 16 133/58 98 Mechanical Ventilator 60 04/09/16 08:00 60 04/09/16 07:05 85 16 40 04/09/16 07:00 97.9 79 18 134/56 96 Mechanical Ventilator 60 04/09/16 06:13 95 149/46 04/09/16 06:00 80 23 100/50 97 Mechanical Ventilator 60 04/09/16 05:28 89 16 40 04/09/16 05:00 80 20 110/60 98 Mechanical Ventilator 60 04/09/16 04:00 60 04/09/16 04:00 80 04/09/16 04:00 98.0 80 22 110/40 96 Mechanical Ventilator 60 04/09/16 03:29 79 16 40 04/09/16 03:00 80 20 110/40 98 Mechanical Ventilator 60 04/09/16 02:00 82 16 100/45 98 Mechanical Ventilator 60 04/09/16 01:25 85 16 40 04/09/16 01:00 82 20 160/65 97 Endotracheal Tube 04/09/16 00:00 98.4 81 20 160/62 97 Mechanical Ventilator 60 04/09/16 00:00 81 04/09/16 00:00 60 04/08/16 23:00 78 20 129/61 95 Mechanical Ventilator 60 04/08/16 23:00 93 16 40 04/08/16 22:16 80 148/62 04/08/16 22:00 81 20 148/61 97 Mechanical Ventilator 60 04/08/16 21:17 81 20 40 04/08/16 21:00 78 16 115/53 97 Mechanical Ventilator 60 04/08/16 20:00 60 04/08/16 20:00 73 04/08/16 20:00 98.6 75 20 119/51 97 Mechanical Ventilator 60 04/08/16 19:00 78 18 119/51 96 Mechanical Ventilator 60 04/08/16 18:56 80 16 40 04/08/16 18:00 98.6 85 20 128/61 97 Mechanical Ventilator 60 04/08/16 17:00 83 18 125/64 95 Mechanical Ventilator 60 04/08/16 16:51 83 17 40 04/08/16 16:00 82 04/08/16 16:00 98.9 83 18 130/58 95 Mechanical Ventilator 60 04/08/16 16:00 60 04/08/16 15:00 81 16 149/73 96 Mechanical Ventilator 60 04/08/16 14:37 82 17 40 04/08/16 14:00 98.7 77 16 134/68 95 Mechanical Ventilator 60 04/08/16 13:35 74 117/62 04/08/16 13:25 75 15 40 04/08/16 13:00 75 16 117/62 97 Mechanical Ventilator 60 04/08/16 12:00 60 04/08/16 12:00 88 04/08/16 12:00 98.6 83 15 136/71 96 Mechanical Ventilator 60 04/08/16 11:52 88 04/08/16 11:00 86 17 127/61 95 Mechanical Ventilator 60 04/08/16 10:40 87 15 40 04/08/16 10:00 98.9 86 18 117/52 95 Mechanical Ventilator 60 04/08/16 09:06 90 20 40 Intake and Output 04/08/16 04/09/16 19:00 07:00 Intake Total 520 ml 1003.708 ml Output Total 1330 ml 660 ml Balance -810 ml 343.708 ml IV Total 100 ml 593.708 ml Tube Feeding 420 ml 410 ml Output Urine Total 1330 ml 660 ml Laboratory Tests 04/09/16 05:15: White Blood Count 5.8, Red Blood Count 2.71L, Hemoglobin 7.4L, Hematocrit 24.4L , Mean Corpuscular Volume 90, Mean Corpuscular Hemoglobin 27.4, Mean Corpuscular Hemoglobin Concent 30.5L, Red Cell Distribution Width 17.1H, Platelet Count 122L, Mean Platelet Volume 6.0L, Neutrophils (%) (Auto) , Lymphocytes (%) (Auto) , Monocytes (%) (Auto) , Eosinophils (%) (Auto) , Basophils (%) (Auto) , Differential Total Cells Counted 100, Neutrophils % ( Manual) 75, Lymphocytes % (Manual) 19L, Monocytes % (Manual) 4, Eosinophils % ( Manual) 2, Basophils % (Manual) 0, Band Neutrophils 0, Platelet Estimate DecreasedL, Platelet Morphology Normal, Hypochromasia 1+, Anisocytosis 1+, Sodium Level 148H, Potassium Level 3.6, Chloride Level 102, Carbon Dioxide Level 38H, Anion Gap 8, Blood Urea Nitrogen 61H, Creatinine 1.9H, Estimat Glomerular Filtration Rate , Glucose Level 144H, Calcium Level 8.1L, Phosphorus Level 2.7, Magnesium Level 1.9, Total Bilirubin 0.3, Aspartate Amino Transf (AST /SGOT) 15, Alanine Aminotransferase (ALT/SGPT) 12, Alkaline Phosphatase 55, Total Protein 5.8L, Albumin 2.9L, Globulin 2.9, Albumin/Globulin Ratio 1.0, Vancomycin Level Trough 11.4 Height (Feet): 5 Height (Inches): 8.00 Weight (Pounds): 350 General Appearance: mild distress EENT: other - on Vent Cardiovascular: normal rate Respiratory/Chest: decreased breath sounds Abdomen: soft, other - obese Edema: 1+ Arm (L), 1+ Arm (R), 1+ Leg (L), 1+ Leg (R), 1+ Pedal (L), 1+ Pedal ( R), 1+ Generalized Objective other PE not changed COURTNEY LOPEZ Apr 09, 2016 09:03
[2016-04-09 09:13] LABS: ABG ALLEN TEST POSITIVE; ABG BASE EXCESS 10.5; ABG PCO2 60.5 mmHg (35.0-45.0)
[2016-04-09] MEDS: Pantoprazole Inj IV SCH (09:32)
[2016-04-09] MEDS: Calcium Carbonate 650mg Tab NG SCH ×3 (09:32→18:11)
[2016-04-09] MEDS: Heparin 5000 units/ml inj SUBQ SCH ×2 (09:33→21:09)
[2016-04-09] MEDS: Digoxin Elixir 0.125mg NG SCH (09:34)
--- NOTE | 2016-04-09 11:13 | Pulmonolgy Critical Care Note ---
Critical Care - Asmt/Plan Problems: (1) Acute respiratory failure with hypoxia and hypercarbia (2) COPD exacerbation (3) Pneumonia (4) Atrial fibrillation with RVR (5) Morbid obesity Respiratory: monitor respiratory rate, adjust FIO2, CXR Cardiac: continue to monitor HR/BP Renal: F/U I&O, keep IV fluid, check electrolytes Infectious Disease: check cultures, continue antibiotics Gastrointestinal: continue feedings/current rate Endocrine: monitor blood sugar, check TSH, check HgA1C, continue sliding scale insulin Hematologic: monitor H/H, transfuse if hgb<8.5 Neurologic: PRN Ativan, PRN Morphine, keep patient comfortable Affect: PRN ativan Prophylaxis: Protonix, Heparin Notes Reviewed: machine splitter, renal 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: nurses, consultants, patient case managercommunications station manager - Objective Last 24 Hour Vital Signs Date Time Temp Pulse Resp B/P Pulse Ox O2 Delivery O2 Flow Rate FiO2 04/09/16 10:00 98.2 92 31 160/86 93 Mechanical Ventilator 40 04/09/16 09:34 78 04/09/16 09:30 79 17 40 04/09/16 09:30 97 04/09/16 09:00 97.2 93 28 141/65 90 Mechanical Ventilator 40 04/09/16 08:23 79 04/09/16 08:00 97.5 75 16 133/58 98 Mechanical Ventilator 60 04/09/16 08:00 60 04/09/16 07:05 85 16 40 04/09/16 07:00 97.9 79 18 134/56 96 Mechanical Ventilator 60 04/09/16 06:13 95 149/46 04/09/16 06:00 80 23 100/50 97 Mechanical Ventilator 60 04/09/16 05:28 89 16 40 04/09/16 05:00 80 20 110/60 98 Mechanical Ventilator 60 04/09/16 04:00 60 04/09/16 04:00 80 04/09/16 04:00 98.0 80 22 110/40 96 Mechanical Ventilator 60 04/09/16 03:29 79 16 40 04/09/16 03:00 80 20 110/40 98 Mechanical Ventilator 60 04/09/16 02:00 82 16 100/45 98 Mechanical Ventilator 60 04/09/16 01:25 85 16 40 04/09/16 01:00 82 20 160/65 97 Endotracheal Tube 04/09/16 00:00 98.4 81 20 160/62 97 Mechanical Ventilator 60 04/09/16 00:00 81 04/09/16 00:00 60 04/08/16 23:00 78 20 129/61 95 Mechanical Ventilator 60 04/08/16 23:00 93 16 40 04/08/16 22:16 80 148/62 04/08/16 22:00 81 20 148/61 97 Mechanical Ventilator 60 04/08/16 21:17 81 20 40 04/08/16 21:00 78 16 115/53 97 Mechanical Ventilator 60 04/08/16 20:00 60 04/08/16 20:00 73 04/08/16 20:00 98.6 75 20 119/51 97 Mechanical Ventilator 60 04/08/16 19:00 78 18 119/51 96 Mechanical Ventilator 60 04/08/16 18:56 80 16 40 04/08/16 18:00 98.6 85 20 128/61 97 Mechanical Ventilator 60 04/08/16 17:00 83 18 125/64 95 Mechanical Ventilator 60 04/08/16 16:51 83 17 40 04/08/16 16:00 82 04/08/16 16:00 98.9 83 18 130/58 95 Mechanical Ventilator 60 04/08/16 16:00 60 04/08/16 15:00 81 16 149/73 96 Mechanical Ventilator 60 04/08/16 14:37 82 17 40 04/08/16 14:00 98.7 77 16 134/68 95 Mechanical Ventilator 60 04/08/16 13:35 74 117/62 04/08/16 13:25 75 15 40 04/08/16 13:00 75 16 117/62 97 Mechanical Ventilator 60 04/08/16 12:00 60 04/08/16 12:00 88 04/08/16 12:00 98.6 83 15 136/71 96 Mechanical Ventilator 60 04/08/16 11:52 88 Status: awake Condition: critical, grave HEENT: atraumatic, normocephalic Neck: full ROM Lungs: chest wall tender Heart: HR/BP stable, HR/BP unstable Abdomen: soft, non-tender, feeding tube Extremities: edema Decubiti: location, stage Micro: Microbiology Date/Time Source Procedure Growth Status 04/06/16 12:59 Sputum Gram Stain - Final Complete 04/06/16 12:59 Sputum Sputum Culture - Final NORMAL UPPER RESPIRATORY MANNIE PRESENT Complete 04/06/16 12:55 Urine,Clean Catch Urine Culture - Final NO GROWTH AFTER 48 HOURS Complete Accucheck: 143 Critical Care - Subjective ROS Limited/Unobtainable: No ICU Day: 3 Intubation Day: 3 Condition: critical EKG Rhythm: Sinus Bradycardia FI02: 40 Vent Support Breath Rate: 16 Vent Support Mode: CPAP Vent Tidal Volume: 500 Sputum Amount: Moderate PEEP: 5.0 PIP: 25 Tube Feeding Amount: 35 I&O: Intake and Output 04/08/16 04/09/16 19:00 07:00 Intake Total 520 ml 1003.708 ml Output Total 1330 ml 660 ml Balance -810 ml 343.708 ml IV Total 100 ml 593.708 ml Tube Feeding 420 ml 410 ml Output Urine Total 1330 ml 660 ml CXR: no change ET-Tube: 7.0 ET Position: 21 Labs: Laboratory Tests Test 04/09/16 04:00 04/09/16 05:15 Arterial Blood pH 7.401 (7.350-7.450) Arterial Blood Partial Pressure CO2 60.5 mmHg (35.0-45.0) *H Arterial Blood Partial Pressure O2 93.7 mmHg (75.0-100.0) Arterial Blood HCO3 36.7 mmol/L (22.0-26.0) H Arterial Blood Oxygen Saturation 97.0 % (92.0-98.0) Arterial Blood Base Excess 10.5 Mike Test Positive White Blood Count 5.8 K/UL (4.8-10.8) Red Blood Count 2.71 M/UL (4.20-5.40) L Hemoglobin 7.4 G/DL (12.0-16.0) L Hematocrit 24.4 % (37.0-47.0) L Mean Corpuscular Volume 90 FL (80-99) Mean Corpuscular Hemoglobin 27.4 PG (27.0-31.0) Mean Corpuscular Hemoglobin Concent 30.5 G/DL (32.0-36.0) L Red Cell Distribution Width 17.1 % (11.6-14.8) H Platelet Count 122 K/UL (150-450) L Mean Platelet Volume 6.0 FL (6.5-10.1) L Neutrophils (%) (Auto) % (45.0-75.0) Lymphocytes (%) (Auto) % (20.0-45.0) Monocytes (%) (Auto) % (1.0-10.0) Eosinophils (%) (Auto) % (0.0-3.0) Basophils (%) (Auto) % (0.0-2.0) Differential Total Cells Counted 100 Neutrophils % (Manual) 75 % (45-75) Lymphocytes % (Manual) 19 % (20-45) L Monocytes % (Manual) 4 % (1-10) Eosinophils % (Manual) 2 % (0-3) Basophils % (Manual) 0 % (0-2) Band Neutrophils 0 % (0-8) Platelet Estimate Decreased L Platelet Morphology Normal Hypochromasia 1+ Anisocytosis 1+ Sodium Level 148 mEQ/L (135-145) H Potassium Level 3.6 mEQ/L (3.4-4.9) Chloride Level 102 mEQ/L (98-107) Carbon Dioxide Level 38 mEQ/L (20-30) H Anion Gap 8 (5-15) Blood Urea Nitrogen 61 mg/dL (7-23) H Creatinine 1.9 mg/dL (0.5-0.9) H Estimat Glomerular Filtration Rate mL/min (>60) Glucose Level 144 mg/dL (74-106) H Calcium Level 8.1 mg/dL (8.6-10.2) L Phosphorus Level 2.7 mg/dL (2.5-4.8) Magnesium Level 1.9 mg/dL (1.7-2.5) Total Bilirubin 0.3 mg/dL (0.0-1.2) Aspartate Amino Transf (AST/SGOT) 15 U/L (5-40) Alanine Aminotransferase (ALT/SGPT) 12 U/L (3-33) Alkaline Phosphatase 55 U/L (35-104) Total Protein 5.8 g/dL (6.6-8.7) L Albumin 2.9 g/dL (3.5-5.2) L Globulin 2.9 g/dL Albumin/Globulin Ratio 1.0 (1.0-2.7) Vancomycin Level Trough 11.4 ug/mL (5.0-12.0) ARASH MIRANDA Apr 09, 2016 11:13
--- NOTE | 2016-04-09 11:33 | Infectious Diseases Prog Note ---
Assessment/Plan Assessment/Plan A: The patient is a 75-year-old female with Leukocytosis , SP Sepsis Pneumonia SCX: NL Fl LLExt Cellulitis UCx :Neg VDRF Obesity CHF HTN COPD GERD. DM PLAN: Cont on Levaquin, vancomycin, and Azactam d# 4 / 7 Monitor CBC Monitor BMP. Monitor cultures (blood). Monitor renal function. Monitor CBC. Monitor chest x-ray. Vent support Subjective Allergies: Coded Allergies: AMOXICILLIN (Verified Allergy, Mild, RASH, 12/25/09) PENICILLINS (Unverified Allergy, Unknown, 04/06/16) Subjective on vent Objective Vital Signs Last 24 Hour Vital Signs Date Time Temp Pulse Resp B/P Pulse Ox O2 Delivery O2 Flow Rate FiO2 04/09/16 10:55 88 25 40 04/09/16 10:00 98.2 92 31 160/86 93 Mechanical Ventilator 40 04/09/16 09:34 78 04/09/16 09:30 79 17 40 04/09/16 09:30 97 04/09/16 09:00 97.2 93 28 141/65 90 Mechanical Ventilator 40 04/09/16 08:23 79 04/09/16 08:00 97.5 75 16 133/58 98 Mechanical Ventilator 60 04/09/16 08:00 60 04/09/16 07:05 85 16 40 04/09/16 07:00 97.9 79 18 134/56 96 Mechanical Ventilator 60 04/09/16 06:13 95 149/46 04/09/16 06:00 80 23 100/50 97 Mechanical Ventilator 60 04/09/16 05:28 89 16 40 04/09/16 05:00 80 20 110/60 98 Mechanical Ventilator 60 04/09/16 04:00 60 04/09/16 04:00 80 04/09/16 04:00 98.0 80 22 110/40 96 Mechanical Ventilator 60 04/09/16 03:29 79 16 40 04/09/16 03:00 80 20 110/40 98 Mechanical Ventilator 60 04/09/16 02:00 82 16 100/45 98 Mechanical Ventilator 60 04/09/16 01:25 85 16 40 04/09/16 01:00 82 20 160/65 97 Endotracheal Tube 04/09/16 00:00 98.4 81 20 160/62 97 Mechanical Ventilator 60 04/09/16 00:00 81 04/09/16 00:00 60 04/08/16 23:00 78 20 129/61 95 Mechanical Ventilator 60 04/08/16 23:00 93 16 40 04/08/16 22:16 80 148/62 04/08/16 22:00 81 20 148/61 97 Mechanical Ventilator 60 04/08/16 21:17 81 20 40 04/08/16 21:00 78 16 115/53 97 Mechanical Ventilator 60 04/08/16 20:00 60 04/08/16 20:00 73 04/08/16 20:00 98.6 75 20 119/51 97 Mechanical Ventilator 60 04/08/16 19:00 78 18 119/51 96 Mechanical Ventilator 60 04/08/16 18:56 80 16 40 04/08/16 18:00 98.6 85 20 128/61 97 Mechanical Ventilator 60 04/08/16 17:00 83 18 125/64 95 Mechanical Ventilator 60 04/08/16 16:51 83 17 40 04/08/16 16:00 82 04/08/16 16:00 98.9 83 18 130/58 95 Mechanical Ventilator 60 04/08/16 16:00 60 04/08/16 15:00 81 16 149/73 96 Mechanical Ventilator 60 04/08/16 14:37 82 17 40 04/08/16 14:00 98.7 77 16 134/68 95 Mechanical Ventilator 60 04/08/16 13:35 74 117/62 04/08/16 13:25 75 15 40 04/08/16 13:00 75 16 117/62 97 Mechanical Ventilator 60 04/08/16 12:00 60 04/08/16 12:00 88 04/08/16 12:00 98.6 83 15 136/71 96 Mechanical Ventilator 60 04/08/16 11:52 88 Height (Feet): 5 Height (Inches): 8.00 Weight (Pounds): 350 HEENT: anicteric Respiratory/Chest: no accessory muscle use Cardiovascular: no gallop/murmur Extremities: no cyanosis Microbiology Date/Time Source Procedure Growth Status 04/06/16 12:59 Sputum Gram Stain - Final Complete 04/06/16 12:59 Sputum Sputum Culture - Final NORMAL UPPER RESPIRATORY MANNIE PRESENT Complete 04/06/16 12:55 Urine,Clean Catch Urine Culture - Final NO GROWTH AFTER 48 HOURS Complete Laboratory Tests Test 04/09/16 04:00 3/3/17 05:15 Arterial Blood pH 7.401 (7.350-7.450) Arterial Blood Partial Pressure CO2 60.5 mmHg (35.0-45.0) *H Arterial Blood Partial Pressure O2 93.7 mmHg (75.0-100.0) Arterial Blood HCO3 36.7 mmol/L (22.0-26.0) H Arterial Blood Oxygen Saturation 97.0 % (92.0-98.0) Arterial Blood Base Excess 10.5 Mike Test Positive White Blood Count 5.8 K/UL (4.8-10.8) Red Blood Count 2.71 M/UL (4.20-5.40) L Hemoglobin 7.4 G/DL (12.0-16.0) L Hematocrit 24.4 % (37.0-47.0) L Mean Corpuscular Volume 90 FL (80-99) Mean Corpuscular Hemoglobin 27.4 PG (27.0-31.0) Mean Corpuscular Hemoglobin Concent 30.5 G/DL (32.0-36.0) L Red Cell Distribution Width 17.1 % (11.6-14.8) H Platelet Count 122 K/UL (150-450) L Mean Platelet Volume 6.0 FL (6.5-10.1) L Neutrophils (%) (Auto) % (45.0-75.0) Lymphocytes (%) (Auto) % (20.0-45.0) Monocytes (%) (Auto) % (1.0-10.0) Eosinophils (%) (Auto) % (0.0-3.0) Basophils (%) (Auto) % (0.0-2.0) Differential Total Cells Counted 100 Neutrophils % (Manual) 75 % (45-75) Lymphocytes % (Manual) 19 % (20-45) L Monocytes % (Manual) 4 % (1-10) Eosinophils % (Manual) 2 % (0-3) Basophils % (Manual) 0 % (0-2) Band Neutrophils 0 % (0-8) Platelet Estimate Decreased L Platelet Morphology Normal Hypochromasia 1+ Anisocytosis 1+ Sodium Level 148 mEQ/L (135-145) H Potassium Level 3.6 mEQ/L (3.4-4.9) Chloride Level 102 mEQ/L (98-107) Carbon Dioxide Level 38 mEQ/L (20-30) H Anion Gap 8 (5-15) Blood Urea Nitrogen 61 mg/dL (7-23) H Creatinine 1.9 mg/dL (0.5-0.9) H Estimat Glomerular Filtration Rate mL/min (>60) Glucose Level 144 mg/dL (74-106) H Calcium Level 8.1 mg/dL (8.6-10.2) L Phosphorus Level 2.7 mg/dL (2.5-4.8) Magnesium Level 1.9 mg/dL (1.7-2.5) Total Bilirubin 0.3 mg/dL (0.0-1.2) Aspartate Amino Transf (AST/SGOT) 15 U/L (5-40) Alanine Aminotransferase (ALT/SGPT) 12 U/L (3-33) Alkaline Phosphatase 55 U/L (35-104) Total Protein 5.8 g/dL (6.6-8.7) L Albumin 2.9 g/dL (3.5-5.2) L Globulin 2.9 g/dL Albumin/Globulin Ratio 1.0 (1.0-2.7) Vancomycin Level Trough 11.4 ug/mL (5.0-12.0) Current Medications Medications (Trade) Dose Ordered Sig/Kalyn Route PRN Reason Start Time Stop Time Status Last Admin Dose Admin Acetaminophen 650 mg 650 mg Q4H PRN RECTAL FEVER>100.5 04/06/16 10:52 05/06/16 10:29 Albuterol/ Ipratropium (DuoNeb 0.5-3(2.5)mg/3ml) 3 ml Q4H PRN HHN Shortness of Breath 04/06/16 10:30 04/11/16 10:29 Aztreonam 0.5 gm/ Dextrose 55 ml @ 110 mls/hr Q8HR IVPB 04/06/16 22:00 04/13/16 21:59 04/09/16 06:08 Calcium Carbonate (Calcium Carbonate) 650 mg THREE TIMES A DAY NG 04/08/16 13:00 05/08/16 12:59 04/09/16 09:32 Dextrose (Dextrose 50%) STAT PRN IV Hypoglycemia 04/06/16 10:30 05/06/16 10:29 Dextrose/Sodium Chloride (D5ns) 1,000 ml @ 75 mls/hr [id number] IV 04/08/16 11:00 05/08/16 10:59 04/09/16 00:00 Digoxin (Lanoxin) 0.125 mg DAILY NG 04/08/16 09:00 05/08/16 08:59 04/09/16 09:34 Diltiazem HCl (Cardizem) 30 mg EVERY 8 HOURS NG 04/08/16 15:13 05/07/16 14:59 04/09/16 06:13 Heparin Sodium (Porcine) (Heparin 5000 units/ml) 5,000 units EVERY 12 HOURS SUBQ 04/06/16 21:00 05/06/16 20:59 04/09/16 09:33 Insulin Aspart (NovoLOG) BEFORE MEALS AND HS SUBQ 04/06/16 11:30 05/06/16 11:29 04/09/16 06:17 Levofloxacin (Levaquin) 50 ml @ 50 mls/hr Q24H IVPB 04/07/16 15:00 04/14/16 14:59 04/08/16 14:41 Lorazepam (Ativan 2mg/ml 1ml) 0.5 mg Q4H PRN IV For Anxiety 04/06/16 10:30 04/13/16 10:29 04/08/16 16:20 Morphine Sulfate (Morphine Sulfate) 4 mg Q4H PRN IVP For Pain 04/06/16 11:00 04/13/16 10:59 Ondansetron HCl (Zofran) 4 mg Q6H PRN IVP Nausea & Vomiting 04/06/16 10:30 05/06/16 10:29 Pantoprazole (Protonix) 40 mg DAILY IV 04/06/16 10:30 05/06/16 10:29 04/09/16 09:32 Polyethylene Glycol (Miralax) 17 gm DAILYPRN PRN GT Constipation 04/08/16 15:13 05/06/16 10:59 Vancomycin HCl (Vanco rx to dose) 1 ea DAILY PRN MISC Per rx protocol 04/06/16 11:00 05/06/16 10:59 Vancomycin HCl 750 mg/Dextrose 275 ml @ 183.708 mls/hr Q24H IVPB 04/07/16 06:00 04/12/16 05:59 04/09/16 06:09 Vitamin D 5000 intlu 5,000 intlu DAILY GT 04/08/16 13:00 05/08/16 12:59 04/09/16 09:00 LINDSEY HILL M.D. Apr 09, 2016 11:33
[2016-04-09] MEDS: D5NS 1,000 ML IV SCH ×2 (14:06)
[2016-04-09 14:45] LABS: MEAN CORPUSCULAR HEMOGLOBIN 27.4 PG (27.0-31.0); MEAN CORPUSCULAR HGB CONC 30.3 G/DL (32.0-36.0); MEAN CORPUSCULAR VOLUME 91 FL (80-99); MEAN PLATELET VOLUME 6.3 FL (6.5-10.1); PLATELET COUNT 123 K/UL (150-450); RED BLOOD COUNT 2.83 M/UL (4.20-5.40); WHITE BLOOD COUNT 5.9 K/UL (4.8-10.8)
--- NOTE | 2016-04-09 14:53 | Diagnostic Imaging Report ---
Indications: DYSPNEA Technique: Portable AP chest Findings: Comparison: 04/08/2016 Again, poor image quality limits evaluation. Right axilla remains enlarged. Central pulmonary vascular congestion unchanged. Lines and tubes remain in place. No new abnormality identified. IMPRESSION: Limited exam demonstrating no apparent significant change from one day prior. Congestive heart failure must be considered.
[2016-04-09 15:26] LABS: EOSINOPHILS % (MANUAL) 3 % (0-3); LYMPHOCYTES % (MANUAL) 3 % (20-45); NEUTROPHILS % (MANUAL) 91 % (45-75); TOTAL CELLS COUNTED 100
[2016-04-09 15:28] LABS: ANISOCYTOSIS 2+; BAND NEUTROPHILS % (MANUAL) 0 % (0-8); BASOPHILS % (MANUAL) 0 % (0-2); PLATELET ESTIMATE DECREASED
[2016-04-09 15:29] LABS: HYPOCHROMASIA 2+; PLATELET MORPHOLOGY NORMAL; POLYCHROMASIA 1+
--- NOTE | 2016-04-09 15:35 | Cardiac Electrophysiology PN ---
Assessment/Plan Assessment/Plan 1. Respiratory failure, likely due to chronic obstructive pulmonary disease and volume overload in view of renal failure with BNP is 7700. On Vent. Echocardiogram showed ejection fraction of 55% to 60%. 2. Atrial fibrillation, rapid ventricular response. Avoid beta-blockers. Continue Dig and Cardizem 30 mg three times a day 3. Lower extremity cellulitis, on IV antibiotics with vancomycin and aztreonam. 4. Morbid obesity. [employer] Subjective Subjective In ICU on Vent, failed weaning . Fib rate better controlled on Digoxin and Cardizem.More alert. Objective Last 24 Hour Vital Signs Date Time Temp Pulse Resp B/P Pulse Ox O2 Delivery O2 Flow Rate FiO2 04/09/16 15:00 86 16 40 04/09/16 14:00 97.3 69 18 99/56 98 Mechanical Ventilator 40 04/09/16 14:00 69 99/56 04/09/16 13:00 97.6 70 18 128/49 99 Mechanical Ventilator 40 04/09/16 12:40 85 18 40 04/09/16 12:00 60 04/09/16 12:00 89 18 174/77 96 Mechanical Ventilator 40 04/09/16 12:00 89 04/09/16 11:00 97.9 92 15 158/71 92 Mechanical Ventilator 40 04/09/16 10:55 88 25 40 04/09/16 10:00 98.2 92 31 160/86 93 Mechanical Ventilator 40 04/09/16 09:34 78 04/09/16 09:30 79 17 40 04/09/16 09:30 97 04/09/16 09:00 97.2 93 28 141/65 90 Mechanical Ventilator 40 04/09/16 08:23 79 04/09/16 08:00 97.5 75 16 133/58 98 Mechanical Ventilator 60 04/09/16 08:00 60 04/09/16 07:05 85 16 40 04/09/16 07:00 97.9 79 18 134/56 96 Mechanical Ventilator 60 04/09/16 06:13 95 149/46 04/09/16 06:00 80 23 100/50 97 Mechanical Ventilator 60 04/09/16 05:28 89 16 40 04/09/16 05:00 80 20 110/60 98 Mechanical Ventilator 60 04/09/16 04:00 60 04/09/16 04:00 80 04/09/16 04:00 98.0 80 22 110/40 96 Mechanical Ventilator 60 04/09/16 03:29 79 16 40 04/09/16 03:00 80 20 110/40 98 Mechanical Ventilator 60 04/09/16 02:00 82 16 100/45 98 Mechanical Ventilator 60 04/09/16 01:25 85 16 40 04/09/16 01:00 82 20 160/65 97 Endotracheal Tube 04/09/16 00:00 98.4 81 20 160/62 97 Mechanical Ventilator 60 04/09/16 00:00 81 04/09/16 00:00 60 04/08/16 23:00 78 20 129/61 95 Mechanical Ventilator 60 04/08/16 23:00 93 16 40 04/08/16 22:16 80 148/62 04/08/16 22:00 81 20 148/61 97 Mechanical Ventilator 60 04/08/16 21:17 81 20 40 04/08/16 21:00 78 16 115/53 97 Mechanical Ventilator 60 04/08/16 20:00 60 04/08/16 20:00 73 04/08/16 20:00 98.6 75 20 119/51 97 Mechanical Ventilator 60 04/08/16 19:00 78 18 119/51 96 Mechanical Ventilator 60 04/08/16 18:56 80 16 40 04/08/16 18:00 98.6 85 20 128/61 97 Mechanical Ventilator 60 04/08/16 17:00 83 18 125/64 95 Mechanical Ventilator 60 04/08/16 16:51 83 17 40 04/08/16 16:00 82 04/08/16 16:00 98.9 83 18 130/58 95 Mechanical Ventilator 60 04/08/16 16:00 60 Intake and Output 04/08/16 04/09/16 19:00 07:00 Intake Total 520 ml 1003.708 ml Output Total 1330 ml 660 ml Balance -810 ml 343.708 ml IV Total 100 ml 593.708 ml Tube Feeding 420 ml 410 ml Output Urine Total 1330 ml 660 ml Laboratory Tests Test 04/09/16 04:00 04/09/16 05:15 04/09/16 14:00 Arterial Blood pH 7.401 (7.350-7.450) Arterial Blood Partial Pressure CO2 60.5 mmHg (35.0-45.0) *H Arterial Blood Partial Pressure O2 93.7 mmHg (75.0-100.0) Arterial Blood HCO3 36.7 mmol/L (22.0-26.0) H Arterial Blood Oxygen Saturation 97.0 % (92.0-98.0) Arterial Blood Base Excess 10.5 Mike Test Positive White Blood Count 5.8 K/UL (4.8-10.8) 5.9 K/UL (4.8-10.8) Red Blood Count 2.71 M/UL (4.20-5.40) L 2.83 M/UL (4.20-5.40) L Hemoglobin 7.4 G/DL (12.0-16.0) L 7.8 G/DL (12.0-16.0) L Hematocrit 24.4 % (37.0-47.0) L 25.7 % (37.0-47.0) L Mean Corpuscular Volume 90 FL (80-99) 91 FL (80-99) Mean Corpuscular Hemoglobin 27.4 PG (27.0-31.0) 27.4 PG (27.0-31.0) Mean Corpuscular Hemoglobin Concent 30.5 G/DL (32.0-36.0) L 30.3 G/DL (32.0-36.0) L Red Cell Distribution Width 17.1 % (11.6-14.8) H 17.0 % (11.6-14.8) H Platelet Count 122 K/UL (150-450) L 123 K/UL (150-450) L Mean Platelet Volume 6.0 FL (6.5-10.1) L 6.3 FL (6.5-10.1) L Neutrophils (%) (Auto) % (45.0-75.0) % (45.0-75.0) Lymphocytes (%) (Auto) % (20.0-45.0) % (20.0-45.0) Monocytes (%) (Auto) % (1.0-10.0) % (1.0-10.0) Eosinophils (%) (Auto) % (0.0-3.0) % (0.0-3.0) Basophils (%) (Auto) % (0.0-2.0) % (0.0-2.0) Differential Total Cells Counted 100 100 Neutrophils % (Manual) 75 % (45-75) 91 % (45-75) H Lymphocytes % (Manual) 19 % (20-45) L 3 % (20-45) L Monocytes % (Manual) 4 % (1-10) 3 % (1-10) Eosinophils % (Manual) 2 % (0-3) 3 % (0-3) Basophils % (Manual) 0 % (0-2) 0 % (0-2) Band Neutrophils 0 % (0-8) 0 % (0-8) Platelet Estimate Decreased L Decreased L Platelet Morphology Normal Normal Hypochromasia 1+ 2+ Anisocytosis 1+ 2+ Sodium Level 148 mEQ/L (135-145) H Potassium Level 3.6 mEQ/L (3.4-4.9) Chloride Level 102 mEQ/L (98-107) Carbon Dioxide Level 38 mEQ/L (20-30) H Anion Gap 8 (5-15) Blood Urea Nitrogen 61 mg/dL (7-23) H Creatinine 1.9 mg/dL (0.5-0.9) H Estimat Glomerular Filtration Rate mL/min (>60) Glucose Level 144 mg/dL (74-106) H Calcium Level 8.1 mg/dL (8.6-10.2) L Phosphorus Level 2.7 mg/dL (2.5-4.8) Magnesium Level 1.9 mg/dL (1.7-2.5) Total Bilirubin 0.3 mg/dL (0.0-1.2) Aspartate Amino Transf (AST/SGOT) 15 U/L (5-40) Alanine Aminotransferase (ALT/SGPT) 12 U/L (3-33) Alkaline Phosphatase 55 U/L (35-104) Total Protein 5.8 g/dL (6.6-8.7) L Albumin 2.9 g/dL (3.5-5.2) L Globulin 2.9 g/dL Albumin/Globulin Ratio 1.0 (1.0-2.7) Vancomycin Level Trough 11.4 ug/mL (5.0-12.0) Polychromasia 1+ Objective HEAD AND NECK: Orally intubated with NG tube. LUNGS: Coarse rhonchi bilaterally. CARDIOVASCULAR: Irregularly irregular S1 and S2 with no gallop or murmur. ABDOMEN: Morbidly obese. EXTREMITIES: 1+ pitting edema. JOHN NUÑEZ Apr 09, 2016 15:35
--- NOTE | 2016-04-09 20:28 | General Progress Note ---
Assessment/Plan Assessment/Plan Diagnosis 1. Acute hypoxemic and hypercapnic respiratory failure requiring intubation. 2. Acute kidney injury. 3. Morbid obesity. 4. Hyperkalemia. 5. Diabetes mellitus. 6. Congestive heart failure. 7. Chronic obstructive pulmonary disease. 8. Pulmonary hypertension. 9. severe edema/anasarca 10. Acute anemia plan: -continue icu care -daily labs -vent support per Dr. Anju mason iv antibioitics per Dr. Milan -nephrology input appreciated -cardiology input appreciated -type and cross match for one unit of PRBC -lasix drip 10 mg/hr, monitor bun/cr, I's and O's -continue weaning off vent FULL code Subjective Date patient seen: Apr 09, 2016 Time patient seen: 20:25 Allergies: Coded Allergies: AMOXICILLIN (Verified Allergy, Mild, RASH, 12/25/09) PENICILLINS (Unverified Allergy, Unknown, 04/06/16) Subjective patient seen in ICU Objective Last 24 Hour Vital Signs Date Time Temp Pulse Resp B/P Pulse Ox O2 Delivery O2 Flow Rate FiO2 04/09/16 18:45 69 17 40 04/09/16 18:00 69 14 118/49 97 Mechanical Ventilator 40 04/09/16 17:00 69 16 122/54 98 Mechanical Ventilator 40 04/09/16 16:50 71 16 40 04/09/16 16:00 40 04/09/16 16:00 80 04/09/16 16:00 98.6 74 16 139/62 100 Mechanical Ventilator 40 04/09/16 15:00 86 16 40 04/09/16 14:00 97.3 69 18 99/56 98 Mechanical Ventilator 40 04/09/16 14:00 69 99/56 04/09/16 13:00 97.6 70 18 128/49 99 Mechanical Ventilator 40 04/09/16 12:40 85 18 40 04/09/16 12:00 60 04/09/16 12:00 89 18 174/77 96 Mechanical Ventilator 40 04/09/16 12:00 89 04/09/16 11:00 97.9 92 15 158/71 92 Mechanical Ventilator 40 04/09/16 10:55 88 25 40 04/09/16 10:00 98.2 92 31 160/86 93 Mechanical Ventilator 40 04/09/16 09:34 78 04/09/16 09:30 79 17 40 04/09/16 09:30 97 04/09/16 09:00 97.2 93 28 141/65 90 Mechanical Ventilator 40 04/09/16 08:23 79 04/09/16 08:00 97.5 75 16 133/58 98 Mechanical Ventilator 60 04/09/16 08:00 60 04/09/16 07:05 85 16 40 04/09/16 07:00 97.9 79 18 134/56 96 Mechanical Ventilator 60 04/09/16 06:13 95 149/46 04/09/16 06:00 80 23 100/50 97 Mechanical Ventilator 60 04/09/16 05:28 89 16 40 04/09/16 05:00 80 20 110/60 98 Mechanical Ventilator 60 04/09/16 04:00 60 04/09/16 04:00 80 04/09/16 04:00 98.0 80 22 110/40 96 Mechanical Ventilator 60 04/09/16 03:29 79 16 40 04/09/16 03:00 80 20 110/40 98 Mechanical Ventilator 60 04/09/16 02:00 82 16 100/45 98 Mechanical Ventilator 60 04/09/16 01:25 85 16 40 04/09/16 01:00 82 20 160/65 97 Endotracheal Tube 04/09/16 00:00 98.4 81 20 160/62 97 Mechanical Ventilator 60 04/09/16 00:00 81 04/09/16 00:00 60 04/08/16 23:00 78 20 129/61 95 Mechanical Ventilator 60 04/08/16 23:00 93 16 40 04/08/16 22:16 80 148/62 04/08/16 22:00 81 20 148/61 97 Mechanical Ventilator 60 04/08/16 21:17 81 20 40 04/08/16 21:00 78 16 115/53 97 Mechanical Ventilator 60 Intake and Output 04/08/16 04/09/16 19:00 07:00 Intake Total 520 ml 1003.708 ml Output Total 1330 ml 660 ml Balance -810 ml 343.708 ml IV Total 100 ml 593.708 ml Tube Feeding 420 ml 410 ml Output Urine Total 1330 ml 660 ml Laboratory Tests 04/09/16 04:00: Arterial Blood pH 7.401, Arterial Blood Partial Pressure CO2 60.5*H, Arterial Blood Partial Pressure O2 93.7, Arterial Blood HCO3 36.7H, Arterial Blood Oxygen Saturation 97.0, Arterial Blood Base Excess 10.5, Mike Test Positive 04/09/16 05:15: White Blood Count 5.8, Red Blood Count 2.71L, Hemoglobin 7.4L, Hematocrit 24.4L , Mean Corpuscular Volume 90, Mean Corpuscular Hemoglobin 27.4, Mean Corpuscular Hemoglobin Concent 30.5L, Red Cell Distribution Width 17.1H, Platelet Count 122L, Mean Platelet Volume 6.0L, Neutrophils (%) (Auto) , Lymphocytes (%) (Auto) , Monocytes (%) (Auto) , Eosinophils (%) (Auto) , Basophils (%) (Auto) , Differential Total Cells Counted 100, Neutrophils % ( Manual) 75, Lymphocytes % (Manual) 19L, Monocytes % (Manual) 4, Eosinophils % ( Manual) 2, Basophils % (Manual) 0, Band Neutrophils 0, Platelet Estimate DecreasedL, Platelet Morphology Normal, Hypochromasia 1+, Anisocytosis 1+, Sodium Level 148H, Potassium Level 3.6, Chloride Level 102, Carbon Dioxide Level 38H, Anion Gap 8, Blood Urea Nitrogen 61H, Creatinine 1.9H, Estimat Glomerular Filtration Rate , Glucose Level 144H, Calcium Level 8.1L, Phosphorus Level 2.7, Magnesium Level 1.9, Total Bilirubin 0.3, Aspartate Amino Transf (AST /SGOT) 15, Alanine Aminotransferase (ALT/SGPT) 12, Alkaline Phosphatase 55, Total Protein 5.8L, Albumin 2.9L, Globulin 2.9, Albumin/Globulin Ratio 1.0, Vancomycin Level Trough 11.4 04/09/16 14:00: White Blood Count 5.9, Red Blood Count 2.83L, Hemoglobin 7.8L, Hematocrit 25.7L , Mean Corpuscular Volume 91, Mean Corpuscular Hemoglobin 27.4, Mean Corpuscular Hemoglobin Concent 30.3L, Red Cell Distribution Width 17.0H, Platelet Count 123L, Mean Platelet Volume 6.3L, Neutrophils (%) (Auto) , Lymphocytes (%) (Auto) , Monocytes (%) (Auto) , Eosinophils (%) (Auto) , Basophils (%) (Auto) , Differential Total Cells Counted 100, Neutrophils % ( Manual) 91H, Lymphocytes % (Manual) 3L, Monocytes % (Manual) 3, Eosinophils % ( Manual) 3, Basophils % (Manual) 0, Band Neutrophils 0, Platelet Estimate DecreasedL, Platelet Morphology Normal, Hypochromasia 2+, Anisocytosis 2+, Polychromasia 1+ 04/09/16 17:00: Urine Eosinophils None seen, Urine Random Sodium 24 Height (Feet): 5 Height (Inches): 8.00 Weight (Pounds): 350 General Appearance: WD/WN, morbidly obese EENT: PERRL/EOMI Neck: non-tender Cardiovascular: irregularly irregular Respiratory/Chest: decreased breath sounds Abdomen: non tender Extremities: swelling Edema: 3+ Arm (L), 3+ Arm (R), 3+ Leg (L), 3+ Leg (R), 3+ Pedal (L), 3+ Pedal ( R), 3+ Generalized Edema: severe edema 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
[2016-04-10] VITALS (24 sets, daily range): BP systolic 92–148; BP diastolic 35–98
[2016-04-10] MEDS: Aztreonam Inj 0.5 GM in D5W 55 ML IVPB SCH ×4 (00:06→21:55)
[2016-04-10] MEDS: NovoLOG Insulin Flexpen SUBQ SCH ×4 (00:37→17:33)
[2016-04-10] MEDS: D5NS 1,000 ML IV SCH (03:00)
[2016-04-10 05:03] LABS: BASOPHILS % (AUTO) 0.9 % (0.0-2.0); EOSINOPHILS % (AUTO) 3.8 % (0.0-3.0); LYMPHOCYTES % (AUTO) 14.3 % (20.0-45.0); MEAN CORPUSCULAR HEMOGLOBIN 28.2 PG (27.0-31.0); MEAN CORPUSCULAR HGB CONC 31.1 G/DL (32.0-36.0); MEAN CORPUSCULAR VOLUME 91 FL (80-99); MEAN PLATELET VOLUME 6.6 FL (6.5-10.1); MONOCYTES % (AUTO) 8.2 % (1.0-10.0); NEUTROPHILS % (AUTO) 72.9 % (45.0-75.0); PLATELET COUNT 120 K/UL (150-450); RED BLOOD COUNT 3.12 M/UL (4.20-5.40); RED CELL DISTRIBUTION WIDTH 16.7 % (11.6-14.8); WHITE BLOOD COUNT 6.7 K/UL (4.8-10.8)
[2016-04-10] MEDS: Vancomycin 750mg/D5W 275ml IVPB SCH ×2 (05:29)
[2016-04-10 05:43] LABS: ALANINE AMINOTRANSFERASE 12 U/L (3-33); ALBUMIN/GLOBULIN RATIO 0.8 (1.0-2.7); ANION GAP 8 (5-15); ASPARTATE AMINO TRANSFERASE 16 U/L (5-40); CALCIUM 8.1 mg/dL (8.6-10.2); CARBON DIOXIDE 37 mEQ/L (20-30); CHLORIDE 103 mEQ/L (98-107); CREATININE 1.6 mg/dL (0.5-0.9); HEMOLYSIS 3; MAGNESIUM 1.7 mg/dL (1.7-2.5); POTASSIUM 3.7 mEQ/L (3.4-4.9); SODIUM 148 mEQ/L (135-145); TOTAL PROTEIN 6.1 g/dL (6.6-8.7)
[2016-04-10 06:36] LABS: PHOSPHORUS 2.6 mg/dL (2.5-4.8)
[2016-04-10 07:54] LABS: ABG ALLEN TEST POSITIVE; ABG BASE EXCESS 15.8; ABG PCO2 69.2 mmHg (35.0-45.0)
[2016-04-10] MEDS: Pantoprazole Inj IV SCH (08:32)
[2016-04-10] MEDS: Vitamin D 1000 IU Tab GT SCH (08:33)
[2016-04-10] MEDS: Calcium Carbonate 650mg Tab NG SCH ×3 (08:33→17:29)
[2016-04-10] MEDS: Heparin 5000 units/ml inj SUBQ SCH ×2 (08:34→22:01)
[2016-04-10] MEDS: Digoxin Elixir 0.125mg NG SCH (08:48)
--- NOTE | 2016-04-10 08:53 | Pulmonolgy Critical Care Note ---
Critical Care - Asmt/Plan Assessment/Plan: ASSESSMENT acute hypoxemic hypercapnic respiratory failure requiring intubation ( leikly due to COPD and volume overload) COPD anasarca acute CHF hyperkalemia AF with RVR anemia morbid obesity DM ATN pulmonary HTN LE cellulitis PLAN OF CARE ICU vent care, pulmonary toilet titrate settings as needed daily CXR and ABG on weaning protocol, not tolerating yet, hypercapnia on today's ABG Lasix drip started 04/09, monitor renal parameters, lytes, I/O rate control with Digoxin and Cardizem, no BB due to COPD abx, ID follows, blood, urine and sputum cx all negative BS management with current regimen - stable off IVF, nephro follows, monitor renal parameters, lytes, avoid nephrotoxic, creat trending down DVT, GI prophylaxis case discussed and evaluated by supervising physician Critical Care - Objective Last 24 Hour Vital Signs Date Time Temp Pulse Resp B/P Pulse Ox O2 Delivery O2 Flow Rate FiO2 04/10/16 07:10 60 21 40 04/10/16 07:00 55 16 115/45 98 Mechanical Ventilator 40 04/10/16 06:00 75 16 125/53 98 Mechanical Ventilator 40 04/10/16 05:29 71 124/63 04/10/16 05:24 83 20 40 04/10/16 05:00 75 16 136/56 98 Mechanical Ventilator 40 04/10/16 04:00 40 04/10/16 04:00 58 04/10/16 04:00 98.0 70 16 129/66 98 Mechanical Ventilator 40 04/10/16 03:19 59 16 40 04/10/16 03:00 59 16 103/51 98 Mechanical Ventilator 40 04/10/16 02:00 56 16 119/55 98 Mechanical Ventilator 40 04/10/16 01:07 58 16 40 04/10/16 01:00 57 16 102/46 97 Mechanical Ventilator 40 04/10/16 00:00 40 04/10/16 00:00 97.8 60 16 125/98 97 Mechanical Ventilator 40 04/10/16 00:00 61 04/09/16 23:27 69 20 40 04/09/16 23:00 67 16 119/61 97 Mechanical Ventilator 40 04/09/16 22:00 68 13 127/56 98 Mechanical Ventilator 40 04/09/16 21:11 68 104/79 04/09/16 21:10 73 18 40 04/09/16 21:00 71 14 124/60 98 Mechanical Ventilator 40 04/09/16 20:00 72 04/09/16 20:00 40 04/09/16 20:00 98.9 72 14 132/69 98 Mechanical Ventilator 40 04/09/16 19:00 67 13 144/57 98 Mechanical Ventilator 40 04/09/16 18:45 69 17 40 04/09/16 18:00 69 14 118/49 97 Mechanical Ventilator 40 04/09/16 17:00 69 16 122/54 98 Mechanical Ventilator 40 04/09/16 16:50 71 16 40 04/09/16 16:00 40 04/09/16 16:00 80 04/09/16 16:00 98.6 74 16 139/62 100 Mechanical Ventilator 40 04/09/16 15:00 86 16 40 04/09/16 14:00 97.3 69 18 99/56 98 Mechanical Ventilator 40 04/09/16 14:00 69 99/56 04/09/16 13:00 97.6 70 18 128/49 99 Mechanical Ventilator 40 04/09/16 12:40 85 18 40 04/09/16 12:00 60 04/09/16 12:00 89 18 174/77 96 Mechanical Ventilator 40 04/09/16 12:00 89 04/09/16 11:00 97.9 92 15 158/71 92 Mechanical Ventilator 40 04/09/16 10:55 88 25 40 04/09/16 10:00 98.2 92 31 160/86 93 Mechanical Ventilator 40 04/09/16 09:34 78 04/09/16 09:30 79 17 40 04/09/16 09:30 97 04/09/16 09:00 97.2 93 28 141/65 90 Mechanical Ventilator 40 Status: awake, other - morbidly obese female on vent Condition: critical HEENT: atraumatic, normocephalic, other - OP with ET in place , NGT Lungs: rales - at bases Heart: HR/BP stable Abdomen: soft - obese, non-tender, active bowel sounds Extremities: edema - +1 BLE Accucheck: 123 Critical Care - Subjective Interval Events: afebrile, no leucocytosis, no signs of respiratory digress creat trending down on weaning, not tolerating ABG with hypercapnia Condition: critical IV Access: PICC - LUE intact EKG Rhythm: Sinus Rhythm FI02: 40 Vent Support Breath Rate: 16 Vent Support Mode: IMV/SIMV Vent Tidal Volume: 500 Sputum Amount: Small PEEP: 5.0 PIP: 43 Fluids: D5NS at 75 Drips: Lasix drip 10 ml/hr Tube Feeding Amount: 35 I&O: Intake and Output 04/09/16 04/10/16 19:00 07:00 Intake Total 701.2 ml 615 ml Output Total 610 ml 1800 ml Balance 91.2 ml -1185 ml Free Water 50 ml IV Total 316.2 ml 145 ml Tube Feeding 385 ml 420 ml Output Urine Total 610 ml 1800 ml # Bowel Movements 3 ET-Tube: 7.0 ET Position: 21 [facility] ([facility]),Jaquelin MAYER Apr 10, 2016 08:52
[2016-04-10] MEDS ORDERED: Tubing IV Blood Pump IV ONE (10:42)
[2016-04-10] MEDS ORDERED: NS 275ml ONE (10:42)
[2016-04-10] MEDS ORDERED: D5NS 1000ml IV ONE (10:42)
--- NOTE | 2016-04-10 12:16 | General Progress Note ---
Assessment/Plan Status: unchanged Status Narrative now on IV Lasix ! Assessment/Plan status: Acute renal failure- Acute Respiratory Failure Anemia Morbid Obesity CHF ? Sepsis Plan: Stop IV fluid Calcium supplements with Vit D on board- Optimize cardiac and pulmonary status- Avoid Nephrotoxics- monitor renal parameters Urine studies- Keep BP over 100 syst Antibiotics Subjective ROS Limited/Unobtainable: Yes Allergies: Coded Allergies: AMOXICILLIN (Verified Allergy, Mild, RASH, 12/25/09) PENICILLINS (Unverified Allergy, Unknown, 04/06/16) Objective Last 24 Hour Vital Signs Date Time Temp Pulse Resp B/P Pulse Ox O2 Delivery O2 Flow Rate FiO2 04/10/16 11:52 40 04/10/16 11:10 78 25 40 04/10/16 10:00 40 04/10/16 09:10 97 04/10/16 09:10 67 16 40 04/10/16 08:48 69 04/10/16 08:00 40 04/10/16 08:00 64 04/10/16 07:10 60 21 40 04/10/16 07:00 55 16 115/45 98 Mechanical Ventilator 40 04/10/16 06:00 75 16 125/53 98 Mechanical Ventilator 40 04/10/16 05:29 71 124/63 04/10/16 05:24 83 20 40 04/10/16 05:00 75 16 136/56 98 Mechanical Ventilator 40 04/10/16 04:00 40 04/10/16 04:00 58 04/10/16 04:00 98.0 70 16 129/66 98 Mechanical Ventilator 40 04/10/16 03:19 59 16 40 04/10/16 03:00 59 16 103/51 98 Mechanical Ventilator 40 04/10/16 02:00 56 16 119/55 98 Mechanical Ventilator 40 04/10/16 01:07 58 16 40 04/10/16 01:00 57 16 102/46 97 Mechanical Ventilator 40 04/10/16 00:00 40 04/10/16 00:00 97.8 60 16 125/98 97 Mechanical Ventilator 40 04/10/16 00:00 61 04/09/16 23:27 69 20 40 04/09/16 23:00 67 16 119/61 97 Mechanical Ventilator 40 04/09/16 22:00 68 13 127/56 98 Mechanical Ventilator 40 04/09/16 21:11 68 104/79 04/09/16 21:10 73 18 40 04/09/16 21:00 71 14 124/60 98 Mechanical Ventilator 40 04/09/16 20:00 72 04/09/16 20:00 40 04/09/16 20:00 98.9 72 14 132/69 98 Mechanical Ventilator 40 04/09/16 19:00 67 13 144/57 98 Mechanical Ventilator 40 04/09/16 18:45 69 17 40 04/09/16 18:00 69 14 118/49 97 Mechanical Ventilator 40 04/09/16 17:00 69 16 122/54 98 Mechanical Ventilator 40 04/09/16 16:50 71 16 40 04/09/16 16:00 40 04/09/16 16:00 80 04/09/16 16:00 98.6 74 16 139/62 100 Mechanical Ventilator 40 04/09/16 15:00 86 16 40 04/09/16 14:00 97.3 69 18 99/56 98 Mechanical Ventilator 40 04/09/16 14:00 69 99/56 04/09/16 13:00 97.6 70 18 128/49 99 Mechanical Ventilator 40 04/09/16 12:40 85 18 40 Intake and Output 04/09/16 04/10/16 19:00 07:00 Intake Total 701.2 ml 615 ml Output Total 610 ml 1800 ml Balance 91.2 ml -1185 ml Free Water 50 ml IV Total 316.2 ml 145 ml Tube Feeding 385 ml 420 ml Output Urine Total 610 ml 1800 ml # Bowel Movements 3 Laboratory Tests 04/09/16 14:00: White Blood Count 5.9, Red Blood Count 2.83L, Hemoglobin 7.8L, Hematocrit 25.7L , Mean Corpuscular Volume 91, Mean Corpuscular Hemoglobin 27.4, Mean Corpuscular Hemoglobin Concent 30.3L, Red Cell Distribution Width 17.0H, Platelet Count 123L, Mean Platelet Volume 6.3L, Neutrophils (%) (Auto) , Lymphocytes (%) (Auto) , Monocytes (%) (Auto) , Eosinophils (%) (Auto) , Basophils (%) (Auto) , Differential Total Cells Counted 100, Neutrophils % ( Manual) 91H, Lymphocytes % (Manual) 3L, Monocytes % (Manual) 3, Eosinophils % ( Manual) 3, Basophils % (Manual) 0, Band Neutrophils 0, Platelet Estimate DecreasedL, Platelet Morphology Normal, Polychromasia 1+, Hypochromasia 2+, Anisocytosis 2+ 04/09/16 17:00: Urine Eosinophils None seen, Urine Random Sodium 24 04/10/16 04:00: White Blood Count 6.7, Red Blood Count 3.12L, Hemoglobin 8.8L, Hematocrit 28.3L , Mean Corpuscular Volume 91, Mean Corpuscular Hemoglobin 28.2, Mean Corpuscular Hemoglobin Concent 31.1L, Red Cell Distribution Width 16.7H, Platelet Count 120L, Mean Platelet Volume 6.6, Neutrophils (%) (Auto) 72.9, Lymphocytes (%) (Auto) 14.3L, Monocytes (%) (Auto) 8.2, Eosinophils (%) (Auto) 3.8H, Basophils (%) (Auto) 0.9, Sodium Level 148H, Potassium Level 3.7, Chloride Level 103, Carbon Dioxide Level 37H, Anion Gap 8, Blood Urea Nitrogen 53H, Creatinine 1.6H, Estimat Glomerular Filtration Rate , Glucose Level 126H, Calcium Level 8.1L, Phosphorus Level 2.6, Magnesium Level 1.7, Total Bilirubin 0.5, Aspartate Amino Transf (AST/SGOT) 16, Alanine Aminotransferase (ALT/SGPT) 12, Alkaline Phosphatase 65, Total Protein 6.1L, Albumin 2.8L, Globulin 3.3, Albumin/Globulin Ratio 0.8L 04/10/16 07:48: Arterial Blood pH 7.409, Arterial Blood Partial Pressure CO2 69.2*H, Arterial Blood Partial Pressure O2 84.4, Arterial Blood HCO3 42.8H, Arterial Blood Oxygen Saturation 95.4, Arterial Blood Base Excess 15.8, Mike Test Positive Height (Feet): 5 Height (Inches): 8.00 Weight (Pounds): 350 General Appearance: no apparent distress Cardiovascular: normal rate Respiratory/Chest: decreased breath sounds Abdomen: soft, distended Edema: 1+ Arm (L), 1+ Arm (R), 1+ Leg (L), 1+ Leg (R), 1+ Pedal (L), 1+ Pedal ( R), 1+ Generalized Objective other PE not changed COURTNEY LOPEZ Apr 10, 2016 12:16
[2016-04-10] MEDS ORDERED: DuoNeb 0.5-3(2.5)mg/3ml neb HHN PRN (14:30)
--- NOTE | 2016-04-10 18:15 | General Progress Note ---
Assessment/Plan Status: progressing Assessment/Plan Diagnosis 1. Acute hypoxemic and hypercapnic respiratory failure requiring intubation. 2. Acute kidney injury. 3. Morbid obesity. 4. Hyperkalemia. 5. Diabetes mellitus. 6. Congestive heart failure. 7. Chronic obstructive pulmonary disease. 8. Pulmonary hypertension. 9. severe edema/anasarca 10. Acute anemia 11. Acute diastolic heart failure plan: -continue icu care -daily labs -vent support per Dr. Rene -zoila iv antibioitics per Dr. Milan -nephrology input appreciated -cardiology input appreciated -type and cross match for one unit of PRBC -continue lasix drip 10 mg/hr, monitor bun/cr, I's and O's -continue weaning off vent FULL code Subjective Date patient seen: Apr 10, 2016 Time patient seen: 18:11 Allergies: Coded Allergies: AMOXICILLIN (Verified Allergy, Mild, RASH, 12/25/09) PENICILLINS (Unverified Allergy, Unknown, 04/06/16) All Systems: reviewed and negative except above Subjective patient seen in ICU Objective Last 24 Hour Vital Signs Date Time Temp Pulse Resp B/P Pulse Ox O2 Delivery O2 Flow Rate FiO2 04/10/16 17:10 69 16 40 04/10/16 17:00 69 17 121/48 100 40 04/10/16 16:00 96.2 68 17 124/53 100 Mechanical Ventilator 40 04/10/16 16:00 40 04/10/16 16:00 68 04/10/16 15:10 70 16 40 04/10/16 15:02 63 16 127/65 98 Mechanical Ventilator 40 04/10/16 14:00 53 95/46 04/10/16 14:00 59 16 95/46 100 Mechanical Ventilator 40 04/10/16 13:20 61 16 40 04/10/16 13:00 70 20 127/58 97 Mechanical Ventilator 40 04/10/16 12:00 73 04/10/16 12:00 97.1 73 16 122/52 100 Mechanical Ventilator 40 04/10/16 11:52 40 04/10/16 11:10 78 25 40 04/10/16 11:00 78 20 136/65 99 Mechanical Ventilator 40 04/10/16 10:00 40 04/10/16 10:00 61 14 109/64 99 Mechanical Ventilator 40 04/10/16 09:10 97 04/10/16 09:10 67 16 40 04/10/16 09:00 70 15 122/49 97 Mechanical Ventilator 40 04/10/16 08:48 69 04/10/16 08:00 97.4 60 14 131/62 97 Mechanical Ventilator 40 04/10/16 08:00 40 04/10/16 08:00 64 04/10/16 07:10 60 21 40 04/10/16 07:00 55 16 115/45 98 Mechanical Ventilator 40 04/10/16 06:00 75 16 125/53 98 Mechanical Ventilator 40 04/10/16 05:29 71 124/63 04/10/16 05:24 83 20 40 04/10/16 05:00 75 16 136/56 98 Mechanical Ventilator 40 04/10/16 04:00 40 04/10/16 04:00 58 04/10/16 04:00 98.0 70 16 129/66 98 Mechanical Ventilator 40 04/10/16 03:19 59 16 40 04/10/16 03:00 59 16 103/51 98 Mechanical Ventilator 40 04/10/16 02:00 56 16 119/55 98 Mechanical Ventilator 40 04/10/16 01:07 58 16 40 04/10/16 01:00 57 16 102/46 97 Mechanical Ventilator 40 04/10/16 00:00 40 04/10/16 00:00 97.8 60 16 125/98 97 Mechanical Ventilator 40 04/10/16 00:00 61 04/09/16 23:27 69 20 40 04/09/16 23:00 67 16 119/61 97 Mechanical Ventilator 40 04/09/16 22:00 68 13 127/56 98 Mechanical Ventilator 40 04/09/16 21:11 68 104/79 04/09/16 21:10 73 18 40 04/09/16 21:00 71 14 124/60 98 Mechanical Ventilator 40 04/09/16 20:00 72 04/09/16 20:00 40 04/09/16 20:00 98.9 72 14 132/69 98 Mechanical Ventilator 40 04/09/16 19:00 67 13 144/57 98 Mechanical Ventilator 40 04/09/16 18:45 69 17 40 Intake and Output 04/09/16 04/10/16 19:00 07:00 Intake Total 701.2 ml 615 ml Output Total 610 ml 1800 ml Balance 91.2 ml -1185 ml Free Water 50 ml IV Total 316.2 ml 145 ml Tube Feeding 385 ml 420 ml Output Urine Total 610 ml 1800 ml # Bowel Movements 3 Laboratory Tests 04/10/16 04:00: White Blood Count 6.7, Red Blood Count 3.12L, Hemoglobin 8.8L, Hematocrit 28.3L , Mean Corpuscular Volume 91, Mean Corpuscular Hemoglobin 28.2, Mean Corpuscular Hemoglobin Concent 31.1L, Red Cell Distribution Width 16.7H, Platelet Count 120L, Mean Platelet Volume 6.6, Neutrophils (%) (Auto) 72.9, Lymphocytes (%) (Auto) 14.3L, Monocytes (%) (Auto) 8.2, Eosinophils (%) (Auto) 3.8H, Basophils (%) (Auto) 0.9, Sodium Level 148H, Potassium Level 3.7, Chloride Level 103, Carbon Dioxide Level 37H, Anion Gap 8, Blood Urea Nitrogen 53H, Creatinine 1.6H, Estimat Glomerular Filtration Rate , Glucose Level 126H, Calcium Level 8.1L, Phosphorus Level 2.6, Magnesium Level 1.7, Total Bilirubin 0.5, Aspartate Amino Transf (AST/SGOT) 16, Alanine Aminotransferase (ALT/SGPT) 12, Alkaline Phosphatase 65, Total Protein 6.1L, Albumin 2.8L, Globulin 3.3, Albumin/Globulin Ratio 0.8L 04/10/16 07:48: Arterial Blood pH 7.409, Arterial Blood Partial Pressure CO2 69.2*H, Arterial Blood Partial Pressure O2 84.4, Arterial Blood HCO3 42.8H, Arterial Blood Oxygen Saturation 95.4, Arterial Blood Base Excess 15.8, Mike Test Positive Height (Feet): 5 Height (Inches): 8.00 Weight (Pounds): 350 General Appearance: WD/WN, alert, morbidly obese EENT: PERRL/EOMI Neck: non-tender Cardiovascular: irregularly irregular Respiratory/Chest: decreased breath sounds Abdomen: normal bowel sounds, non tender Extremities: swelling Edema: 3+ Arm (L), 3+ Arm (R), 3+ Leg (L), 3+ Leg (R), 3+ Pedal (L), 3+ Pedal ( R), 3+ Generalized Edema: severe edema, pitting 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
--- NOTE | 2016-04-10 19:36 | Cardiac Electrophysiology PN ---
Assessment/Plan Assessment/Plan 1. Respiratory failure, likely due to chronic obstructive pulmonary disease and volume overload in view of renal failure with BNP is 7700. On Vent. Echocardiogram showed ejection fraction of 55% to 60%. On Lasix drip at 10 mg/ hr. 2. Atrial fibrillation, rapid ventricular response. Avoid beta-blockers. Continue Dig and Cardizem 30 mg three times a day 3. Lower extremity cellulitis, on IV antibiotics with vancomycin and aztreonam. 4. Morbid obesity. 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 . Fib rate better controlled on Digoxin and Cardizem. Objective Last 24 Hour Vital Signs Date Time Temp Pulse Resp B/P Pulse Ox O2 Delivery O2 Flow Rate FiO2 04/10/16 18:00 65 14 93/42 100 Mechanical Ventilator 40 04/10/16 17:10 69 16 40 04/10/16 17:00 69 17 121/48 100 40 04/10/16 16:00 96.2 68 17 124/53 100 Mechanical Ventilator 40 04/10/16 16:00 40 04/10/16 16:00 68 04/10/16 15:10 70 16 40 04/10/16 15:02 63 16 127/65 98 Mechanical Ventilator 40 04/10/16 14:00 53 95/46 04/10/16 14:00 59 16 95/46 100 Mechanical Ventilator 40 04/10/16 13:20 61 16 40 04/10/16 13:00 70 20 127/58 97 Mechanical Ventilator 40 04/10/16 12:00 73 04/10/16 12:00 97.1 73 16 122/52 100 Mechanical Ventilator 40 04/10/16 11:52 40 04/10/16 11:10 78 25 40 04/10/16 11:00 78 20 136/65 99 Mechanical Ventilator 40 04/10/16 10:00 40 04/10/16 10:00 61 14 109/64 99 Mechanical Ventilator 40 04/10/16 09:10 97 04/10/16 09:10 67 16 40 04/10/16 09:00 70 15 122/49 97 Mechanical Ventilator 40 04/10/16 08:48 69 04/10/16 08:00 97.4 60 14 131/62 97 Mechanical Ventilator 40 04/10/16 08:00 40 04/10/16 08:00 64 04/10/16 07:10 60 21 40 04/10/16 07:00 55 16 115/45 98 Mechanical Ventilator 40 04/10/16 06:00 75 16 125/53 98 Mechanical Ventilator 40 04/10/16 05:29 71 124/63 04/10/16 05:24 83 20 40 04/10/16 05:00 75 16 136/56 98 Mechanical Ventilator 40 04/10/16 04:00 40 04/10/16 04:00 58 04/10/16 04:00 98.0 70 16 129/66 98 Mechanical Ventilator 40 04/10/16 03:19 59 16 40 04/10/16 03:00 59 16 103/51 98 Mechanical Ventilator 40 04/10/16 02:00 56 16 119/55 98 Mechanical Ventilator 40 04/10/16 01:07 58 16 40 04/10/16 01:00 57 16 102/46 97 Mechanical Ventilator 40 04/10/16 00:00 40 04/10/16 00:00 97.8 60 16 125/98 97 Mechanical Ventilator 40 04/10/16 00:00 61 04/09/16 23:27 69 20 40 04/09/16 23:00 67 16 119/61 97 Mechanical Ventilator 40 04/09/16 22:00 68 13 127/56 98 Mechanical Ventilator 40 04/09/16 21:11 68 104/79 04/09/16 21:10 73 18 40 04/09/16 21:00 71 14 124/60 98 Mechanical Ventilator 40 04/09/16 20:00 72 04/09/16 20:00 40 04/09/16 20:00 98.9 72 14 132/69 98 Mechanical Ventilator 40 Intake and Output 04/09/16 04/10/16 19:00 07:00 Intake Total 701.2 ml 615 ml Output Total 610 ml 1800 ml Balance 91.2 ml -1185 ml Free Water 50 ml IV Total 316.2 ml 145 ml Tube Feeding 385 ml 420 ml Output Urine Total 610 ml 1800 ml # Bowel Movements 3 Laboratory Tests Test 04/10/16 04:00 04/10/16 07:48 White Blood Count 6.7 K/UL (4.8-10.8) Red Blood Count 3.12 M/UL (4.20-5.40) L Hemoglobin 8.8 G/DL (12.0-16.0) L Hematocrit 28.3 % (37.0-47.0) L Mean Corpuscular Volume 91 FL (80-99) Mean Corpuscular Hemoglobin 28.2 PG (27.0-31.0) Mean Corpuscular Hemoglobin Concent 31.1 G/DL (32.0-36.0) L Red Cell Distribution Width 16.7 % (11.6-14.8) H Platelet Count 120 K/UL (150-450) L Mean Platelet Volume 6.6 FL (6.5-10.1) Neutrophils (%) (Auto) 72.9 % (45.0-75.0) Lymphocytes (%) (Auto) 14.3 % (20.0-45.0) L Monocytes (%) (Auto) 8.2 % (1.0-10.0) Eosinophils (%) (Auto) 3.8 % (0.0-3.0) H Basophils (%) (Auto) 0.9 % (0.0-2.0) Sodium Level 148 mEQ/L (135-145) H Potassium Level 3.7 mEQ/L (3.4-4.9) Chloride Level 103 mEQ/L (98-107) Carbon Dioxide Level 37 mEQ/L (20-30) H Anion Gap 8 (5-15) Blood Urea Nitrogen 53 mg/dL (7-23) H Creatinine 1.6 mg/dL (0.5-0.9) H Estimat Glomerular Filtration Rate mL/min (>60) Glucose Level 126 mg/dL (74-106) H Calcium Level 8.1 mg/dL (8.6-10.2) L Phosphorus Level 2.6 mg/dL (2.5-4.8) Magnesium Level 1.7 mg/dL (1.7-2.5) Total Bilirubin 0.5 mg/dL (0.0-1.2) Aspartate Amino Transf (AST/SGOT) 16 U/L (5-40) Alanine Aminotransferase (ALT/SGPT) 12 U/L (3-33) Alkaline Phosphatase 65 U/L (35-104) Total Protein 6.1 g/dL (6.6-8.7) L Albumin 2.8 g/dL (3.5-5.2) L Globulin 3.3 g/dL Albumin/Globulin Ratio 0.8 (1.0-2.7) L Arterial Blood pH 7.409 (7.350-7.450) Arterial Blood Partial Pressure CO2 69.2 mmHg (35.0-45.0) *H Arterial Blood Partial Pressure O2 84.4 mmHg (75.0-100.0) Arterial Blood HCO3 42.8 mmol/L (22.0-26.0) H Arterial Blood Oxygen Saturation 95.4 % (92.0-98.0) Arterial Blood Base Excess 15.8 Mike Test Positive Objective HEAD AND NECK: Orally intubated with NG tube. LUNGS: Coarse rhonchi bilaterally. CARDIOVASCULAR: Irregularly irregular S1 and S2 with no gallop or murmur. ABDOMEN: Morbidly obese. EXTREMITIES: 1+ pitting edema. JOHN NUÑEZ Apr 10, 2016 19:36
[2016-04-11] VITALS (24 sets, daily range): BP systolic 80–143; BP diastolic 30–77
[2016-04-11] MEDS: NovoLOG Insulin Flexpen SUBQ SCH ×4 (00:22→18:04)
[2016-04-11] MEDS: LORazepam Inj 2mg/ml 1ml IV PRN (00:58)
[2016-04-11 06:11] LABS: ALANINE AMINOTRANSFERASE 10 U/L (3-33); ALBUMIN/GLOBULIN RATIO 0.9 (1.0-2.7); ASPARTATE AMINO TRANSFERASE 13 U/L (5-40); CALCIUM 8.1 mg/dL (8.6-10.2); CHLORIDE 100 mEQ/L (98-107); CREATININE 1.6 mg/dL (0.5-0.9); CRP QUANT 7.1 mg/dL (< 0.5); HEMOLYSIS 5; MAGNESIUM 1.6 mg/dL (1.7-2.5); PHOSPHORUS 2.8 mg/dL (2.5-4.8); POTASSIUM 3.4 mEQ/L (3.4-4.9); SODIUM 146 mEQ/L (135-145); TOTAL PROTEIN 6.1 g/dL (6.6-8.7); URIC ACID 8.5 mg/dL (3.0-7.5)
[2016-04-11] MEDS: Aztreonam Inj 0.5 GM in D5W 55 ML IVPB SCH ×3 (06:24→21:44)
[2016-04-11] MEDS: Vancomycin 750mg/D5W 275ml IVPB SCH ×2 (06:24)
[2016-04-11 06:25] LABS: ANION GAP 6 (5-15); CARBON DIOXIDE 40 mEQ/L (20-30)
[2016-04-11 08:02] LABS: BASOPHILS % (AUTO) 0.9 % (0.0-2.0); EOSINOPHILS % (AUTO) 4.8 % (0.0-3.0); MEAN CORPUSCULAR HEMOGLOBIN 27.4 PG (27.0-31.0); MEAN CORPUSCULAR HGB CONC 30.1 G/DL (32.0-36.0); MEAN CORPUSCULAR VOLUME 91 FL (80-99); MEAN PLATELET VOLUME 6.2 FL (6.5-10.1); MONOCYTES % (AUTO) 9.6 % (1.0-10.0); NEUTROPHILS % (AUTO) 70.6 % (45.0-75.0); PLATELET COUNT 111 K/UL (150-450); RED BLOOD COUNT 2.95 M/UL (4.20-5.40); RED CELL DISTRIBUTION WIDTH 16.7 % (11.6-14.8); WHITE BLOOD COUNT 5.8 K/UL (4.8-10.8)
[2016-04-11 08:17] LABS: ABG PCO2 59.3 mmHg (35.0-45.0)
[2016-04-11 08:18] LABS: ABG ALLEN TEST POSITIVE
[2016-04-11] MEDS: Pantoprazole Inj IV SCH (08:57)
[2016-04-11] MEDS: Digoxin Elixir 0.125mg NG SCH (08:57)
[2016-04-11] MEDS: Vitamin D 1000 IU Tab GT SCH (08:57)
[2016-04-11] MEDS: Calcium Carbonate 650mg Tab NG SCH ×3 (08:57→17:48)
[2016-04-11] MEDS: Heparin 5000 units/ml inj SUBQ SCH ×2 (09:11→21:14)
--- NOTE | 2016-04-11 09:48 | Infectious Diseases Prog Note ---
Assessment/Plan Assessment/Plan A: Sepsis Pneumonia Hypercapnic respiratory failure Morbid obesity Anemia P: Continue Levaquin, vancomycin, and Azactam d# Subjective ROS Limited/Unobtainable: Yes Constitutional: Reports: no symptoms Allergies: Coded Allergies: AMOXICILLIN (Verified Allergy, Mild, RASH, 12/25/09) PENICILLINS (Unverified Allergy, Unknown, 04/06/16) Objective Vital Signs Last 24 Hour Vital Signs Date Time Temp Pulse Resp B/P Pulse Ox O2 Delivery O2 Flow Rate FiO2 04/11/16 08:57 68 04/11/16 08:36 97 04/11/16 08:34 67 16 40 04/11/16 07:30 66 16 40 04/11/16 07:00 67 24 111/41 97 Mechanical Ventilator 40 04/11/16 06:24 76 123/56 04/11/16 06:00 74 14 123/56 96 Mechanical Ventilator 40 04/11/16 05:07 76 21 40 04/11/16 05:00 71 15 112/41 97 Mechanical Ventilator 40 04/11/16 04:00 98.9 71 26 112/44 97 Mechanical Ventilator 40 04/11/16 04:00 40 04/11/16 04:00 68 04/11/16 03:17 68 22 40 04/11/16 03:00 61 16 107/46 97 Mechanical Ventilator 40 04/11/16 02:00 60 16 99/59 98 Mechanical Ventilator 40 04/11/16 01:17 69 22 40 04/11/16 01:00 60 14 100/43 100 Mechanical Ventilator 40 04/11/16 00:00 97.8 71 18 98/30 98 Mechanical Ventilator 40 04/11/16 00:00 40 04/10/16 23:00 92/35 Mechanical Ventilator 40 04/10/16 22:40 75 18 40 04/10/16 22:00 24 98/47 99 Mechanical Ventilator 40 04/10/16 21:54 68 148/92 04/10/16 21:00 71 17 148/92 98 Mechanical Ventilator 40 04/10/16 20:44 72 16 40 04/10/16 20:00 40 04/10/16 20:00 97.2 71 17 140/52 98 Mechanical Ventilator 40 04/10/16 20:00 71 04/10/16 19:25 63 14 40 04/10/16 19:00 60 15 100/44 99 Mechanical Ventilator 40 04/10/16 18:00 65 14 93/42 100 Mechanical Ventilator 40 04/10/16 17:10 69 16 40 04/10/16 17:00 69 17 121/48 100 40 04/10/16 16:00 96.2 68 17 124/53 100 Mechanical Ventilator 40 04/10/16 16:00 40 04/10/16 16:00 68 04/10/16 15:10 70 16 40 04/10/16 15:02 63 16 127/65 98 Mechanical Ventilator 40 04/10/16 14:00 53 95/46 04/10/16 14:00 59 16 95/46 100 Mechanical Ventilator 40 04/10/16 13:20 61 16 40 04/10/16 13:00 70 20 127/58 97 Mechanical Ventilator 40 04/10/16 12:00 73 04/10/16 12:00 97.1 73 16 122/52 100 Mechanical Ventilator 40 04/10/16 11:52 40 04/10/16 11:10 78 25 40 04/10/16 11:00 78 20 136/65 99 Mechanical Ventilator 40 04/10/16 10:00 40 04/10/16 10:00 61 14 109/64 99 Mechanical Ventilator 40 Height (Feet): 5 Height (Inches): 8.00 Weight (Pounds): 350 General Appearance: other - obese HEENT: mucous membranes moist Respiratory/Chest: decreased breath sounds, other - on ventilator Cardiovascular: normal rate Abdomen: soft, non tender Extremities: other - generalized edema, left arm PICC line Laboratory Tests Test 04/11/16 05:00 04/11/16 08:02 White Blood Count 5.8 K/UL (4.8-10.8) Red Blood Count 2.95 M/UL (4.20-5.40) L Hemoglobin 8.1 G/DL (12.0-16.0) L Hematocrit 26.9 % (37.0-47.0) L Mean Corpuscular Volume 91 FL (80-99) Mean Corpuscular Hemoglobin 27.4 PG (27.0-31.0) Mean Corpuscular Hemoglobin Concent 30.1 G/DL (32.0-36.0) L Red Cell Distribution Width 16.7 % (11.6-14.8) H Platelet Count 111 K/UL (150-450) L Mean Platelet Volume 6.2 FL (6.5-10.1) L Neutrophils (%) (Auto) 70.6 % (45.0-75.0) Lymphocytes (%) (Auto) 14.0 % (20.0-45.0) L Monocytes (%) (Auto) 9.6 % (1.0-10.0) Eosinophils (%) (Auto) 4.8 % (0.0-3.0) H Basophils (%) (Auto) 0.9 % (0.0-2.0) Sodium Level 146 mEQ/L (135-145) H Potassium Level 3.4 mEQ/L (3.4-4.9) Chloride Level 100 mEQ/L (98-107) Carbon Dioxide Level 40 mEQ/L (20-30) H Anion Gap 6 (5-15) Blood Urea Nitrogen 53 mg/dL (7-23) H Creatinine 1.6 mg/dL (0.5-0.9) H Estimat Glomerular Filtration Rate mL/min (>60) Glucose Level 135 mg/dL (74-106) H Uric Acid 8.5 mg/dL (3.0-7.5) H Calcium Level 8.1 mg/dL (8.6-10.2) L Phosphorus Level 2.8 mg/dL (2.5-4.8) Magnesium Level 1.6 mg/dL (1.7-2.5) L Total Bilirubin 0.4 mg/dL (0.0-1.2) Gamma Glutamyl Transpeptidase 22 U/L (5-36) Aspartate Amino Transf (AST/SGOT) 13 U/L (5-40) Alanine Aminotransferase (ALT/SGPT) 10 U/L (3-33) Alkaline Phosphatase 57 U/L (35-104) Total Creatine Kinase 96 U/L (26-140) C-Reactive Protein, Quantitative 7.1 mg/dL (< 0.5) H Pro-B-Type Natriuretic Peptide 8600 pg/mL (0-125) H Total Protein 6.1 g/dL (6.6-8.7) L Albumin 2.9 g/dL (3.5-5.2) L Globulin 3.2 g/dL Albumin/Globulin Ratio 0.9 (1.0-2.7) L Arterial Blood pH 7.424 (7.350-7.450) Arterial Blood Partial Pressure CO2 59.3 mmHg (35.0-45.0) *H Arterial Blood Partial Pressure O2 62.8 mmHg (75.0-100.0) L Arterial Blood HCO3 37.9 mmol/L (22.0-26.0) H Arterial Blood Oxygen Saturation 91.9 % (92.0-98.0) L Arterial Blood Base Excess 12.0 Mike Test Positive Current Medications Medications (Trade) Dose Ordered Sig/Kalyn Route PRN Reason Start Time Stop Time Status Last Admin Dose Admin Acetaminophen 650 mg 650 mg Q4H PRN RECTAL FEVER>100.5 04/06/16 10:52 05/06/16 10:29 Albuterol/ Ipratropium (DuoNeb 0.5-3(2.5)mg/3ml) 3 ml Q4H PRN HHN Shortness of Breath 04/10/16 14:30 04/15/16 23:59 Aztreonam 0.5 gm/ Dextrose 55 ml @ 110 mls/hr Q8HR IVPB 04/06/16 22:00 04/17/16 21:59 04/11/16 06:24 Calcium Carbonate (Calcium Carbonate) 650 mg THREE TIMES A DAY NG 04/08/16 13:00 05/08/16 12:59 04/11/16 08:57 Dextrose (Dextrose 50%) STAT PRN IV Hypoglycemia 04/06/16 10:30 05/06/16 10:29 Digoxin (Lanoxin) 0.125 mg DAILY NG 04/08/16 09:00 05/08/16 08:59 04/11/16 08:57 Diltiazem HCl (Cardizem) 30 mg EVERY 8 HOURS NG 04/08/16 15:13 05/07/16 14:59 04/11/16 06:24 Furosemide/ Dextrose (Lasix/D5W) 100 ml @ 10 mls/hr Q10H IV 04/09/16 21:30 05/09/16 21:29 04/11/16 02:01 Heparin Sodium (Porcine) (Heparin 5000 units/ml) 5,000 units EVERY 12 HOURS SUBQ 04/06/16 21:00 05/06/16 20:59 04/11/16 09:11 Insulin Aspart EVERY 6 HOURS SUBQ 04/09/16 18:00 4/2/17 17:59 04/11/16 06:26 Levofloxacin (Levaquin) 50 ml @ 50 mls/hr Q24H IVPB 04/07/16 15:00 04/14/16 14:59 04/10/16 15:08 Lorazepam (Ativan 2mg/ml 1ml) 0.5 mg Q4H PRN IV For Anxiety 04/06/16 10:30 04/13/16 10:29 04/11/16 00:58 Morphine Sulfate (Morphine Sulfate) 4 mg Q4H PRN IVP For Pain 04/06/16 11:00 04/13/16 10:59 Ondansetron HCl (Zofran) 4 mg Q6H PRN IVP Nausea & Vomiting 04/06/16 10:30 05/06/16 10:29 04/11/16 08:57 Pantoprazole (Protonix) 40 mg DAILY IV 04/06/16 10:30 05/06/16 10:29 04/11/16 08:57 Polyethylene Glycol (Miralax) 17 gm DAILYPRN PRN GT Constipation 04/08/16 15:13 05/06/16 10:59 Vancomycin HCl (Vanco rx to dose) 1 ea DAILY PRN MISC Per rx protocol 04/06/16 11:00 05/06/16 10:59 Vancomycin HCl 750 mg/Dextrose 275 ml @ 183.708 mls/hr Q24H IVPB 04/07/16 06:00 04/12/16 05:59 04/11/16 06:24 Vitamin D (Vitamin D) 5,000 intlu DAILY GT 04/08/16 13:00 05/08/16 12:59 04/11/16 08:57 CARY ESTES Apr 11, 2016 09:48
--- NOTE | 2016-04-11 10:08 | Diagnostic Imaging Report ---
Indication: Shortness of breath Technique: XRAY CHEST 1 V Comparison: 04/10/16 Findings: Examination is technically limited secondary to poor penetration and patient rotation. Endotracheal tube and nasogastric tubes are grossly unchanged. Cardiac silhouette is prominent. The lungs are grossly stable without new infiltrates. Osseous structures are stable. Left PICC line remains. Impression: Markedly limited examination without gross interval change from 04/10/16. Followup recommended.
--- NOTE | 2016-04-11 13:33 | General Progress Note ---
Assessment/Plan Status: stable Status Narrative Cr 1.6 unchanged Assessment/Plan status: Acute renal failure- Acute Respiratory Failure Anemia Morbid Obesity CHF ? Sepsis Plan: Stop IV fluid Calcium supplements with Vit D on board- Optimize cardiac and pulmonary status- Avoid Nephrotoxics- monitor renal parameters Urine studies- Keep BP over 100 syst Antibiotics Subjective ROS Limited/Unobtainable: Yes Allergies: Coded Allergies: AMOXICILLIN (Verified Allergy, Mild, RASH, 12/25/09) PENICILLINS (Unverified Allergy, Unknown, 04/06/16) Objective Last 24 Hour Vital Signs Date Time Temp Pulse Resp B/P Pulse Ox O2 Delivery O2 Flow Rate FiO2 04/11/16 13:03 77 27 40 04/11/16 10:44 61 15 40 04/11/16 08:57 68 04/11/16 08:36 97 04/11/16 08:34 67 16 40 04/11/16 07:30 66 16 40 04/11/16 07:00 67 24 111/41 97 Mechanical Ventilator 40 04/11/16 06:24 76 123/56 04/11/16 06:00 74 14 123/56 96 Mechanical Ventilator 40 04/11/16 05:07 76 21 40 04/11/16 05:00 71 15 112/41 97 Mechanical Ventilator 40 04/11/16 04:00 98.9 71 26 112/44 97 Mechanical Ventilator 40 04/11/16 04:00 40 04/11/16 04:00 68 04/11/16 03:17 68 22 40 04/11/16 03:00 61 16 107/46 97 Mechanical Ventilator 40 04/11/16 02:00 60 16 99/59 98 Mechanical Ventilator 40 04/11/16 01:17 69 22 40 04/11/16 01:00 60 14 100/43 100 Mechanical Ventilator 40 04/11/16 00:00 97.8 71 18 98/30 98 Mechanical Ventilator 40 04/11/16 00:00 40 04/10/16 23:00 92/35 Mechanical Ventilator 40 04/10/16 22:40 75 18 40 04/10/16 22:00 24 98/47 99 Mechanical Ventilator 40 04/10/16 21:54 68 148/92 04/10/16 21:00 71 17 148/92 98 Mechanical Ventilator 40 04/10/16 20:44 72 16 40 04/10/16 20:00 40 04/10/16 20:00 97.2 71 17 140/52 98 Mechanical Ventilator 40 04/10/16 20:00 71 04/10/16 19:25 63 14 40 04/10/16 19:00 60 15 100/44 99 Mechanical Ventilator 40 04/10/16 18:00 65 14 93/42 100 Mechanical Ventilator 40 04/10/16 17:10 69 16 40 04/10/16 17:00 69 17 121/48 100 40 04/10/16 16:00 96.2 68 17 124/53 100 Mechanical Ventilator 40 04/10/16 16:00 40 04/10/16 16:00 68 04/10/16 15:10 70 16 40 04/10/16 15:02 63 16 127/65 98 Mechanical Ventilator 40 04/10/16 14:00 53 95/46 04/10/16 14:00 59 16 95/46 100 Mechanical Ventilator 40 Intake and Output 04/10/16 04/11/16 19:00 07:00 Intake Total 1103.708 ml 845 ml Output Total 3600 ml 3840 ml Balance -2496.292 ml -2995 ml Free Water 100 ml 100 ml IV Total 453.708 ml 295 ml Tube Feeding 490 ml 420 ml Other 60 ml 30 ml Output Urine Total 3600 ml 3840 ml # Bowel Movements 3 Laboratory Tests 04/11/16 05:00: White Blood Count 5.8, Red Blood Count 2.95L, Hemoglobin 8.1L, Hematocrit 26.9L , Mean Corpuscular Volume 91, Mean Corpuscular Hemoglobin 27.4, Mean Corpuscular Hemoglobin Concent 30.1L, Red Cell Distribution Width 16.7H, Platelet Count 111L, Mean Platelet Volume 6.2L, Neutrophils (%) (Auto) 70.6, Lymphocytes (%) (Auto) 14.0L, Monocytes (%) (Auto) 9.6, Eosinophils (%) (Auto) 4.8H, Basophils (%) (Auto) 0.9, Sodium Level 146H, Potassium Level 3.4, Chloride Level 100, Carbon Dioxide Level 40H, Anion Gap 6, Blood Urea Nitrogen 53H, Creatinine 1.6H, Estimat Glomerular Filtration Rate , Glucose Level 135H, Uric Acid 8.5H, Calcium Level 8.1L, Phosphorus Level 2.8, Magnesium Level 1.6L, Total Bilirubin 0.4, Gamma Glutamyl Transpeptidase 22, Aspartate Amino Transf ( AST/SGOT) 13, Alanine Aminotransferase (ALT/SGPT) 10, Alkaline Phosphatase 57, Total Creatine Kinase 96, C-Reactive Protein, Quantitative 7.1H, Pro-B-Type Natriuretic Peptide 8600H, Total Protein 6.1L, Albumin 2.9L, Globulin 3.2, Albumin/Globulin Ratio 0.9L 04/11/16 08:02: Arterial Blood pH 7.424, Arterial Blood Partial Pressure CO2 59.3*H, Arterial Blood Partial Pressure O2 62.8L, Arterial Blood HCO3 37.9H, Arterial Blood Oxygen Saturation 91.9L, Arterial Blood Base Excess 12.0, Mike Test Positive Height (Feet): 5 Height (Inches): 8.00 Weight (Pounds): 350 General Appearance: no apparent distress Objective other PE not changed COURTNEY LOPEZ Apr 11, 2016 13:33
--- NOTE | 2016-04-11 14:14 | Pulmonolgy Critical Care Note ---
Critical Care - Asmt/Plan Assessment/Plan: ASSESSMENT acute hypoxemic hypercapnic respiratory failure requiring intubation ( leikly due to COPD and volume overload) COPD anasarca acute CHF hyperkalemia AF with RVR anemia morbid obesity DM ATN pulmonary HTN LE cellulitis PLAN OF CARE ICU vent care, pulmonary toilet titrate settings as needed daily CXR and ABG on weaning protocol, not tolerating yet, hypercapnia and mild hypoxemia on today's ABG Lasix drip started 04/09, monitor renal parameters, lytes, I/O rate control with Digoxin and Cardizem, no BB due to COPD abx, ID follows, blood, urine and sputum cx all negative BS management with current regimen - stable off IVF, nephro follows, monitor renal parameters, lytes, avoid nephrotoxic, creat trending down DVT, GI prophylaxis case discussed and evaluated by supervising physician Critical Care - Objective Last 24 Hour Vital Signs Date Time Temp Pulse Resp B/P Pulse Ox O2 Delivery O2 Flow Rate FiO2 04/11/16 13:03 77 27 40 04/11/16 10:44 61 15 40 04/11/16 08:57 68 04/11/16 08:36 97 04/11/16 08:34 67 16 40 04/11/16 07:30 66 16 40 04/11/16 07:00 67 24 111/41 97 Mechanical Ventilator 40 04/11/16 06:24 76 123/56 04/11/16 06:00 74 14 123/56 96 Mechanical Ventilator 40 04/11/16 05:07 76 21 40 04/11/16 05:00 71 15 112/41 97 Mechanical Ventilator 40 04/11/16 04:00 98.9 71 26 112/44 97 Mechanical Ventilator 40 04/11/16 04:00 40 04/11/16 04:00 68 04/11/16 03:17 68 22 40 04/11/16 03:00 61 16 107/46 97 Mechanical Ventilator 40 04/11/16 02:00 60 16 99/59 98 Mechanical Ventilator 40 04/11/16 01:17 69 22 40 04/11/16 01:00 60 14 100/43 100 Mechanical Ventilator 40 04/11/16 00:00 97.8 71 18 98/30 98 Mechanical Ventilator 40 04/11/16 00:00 40 04/10/16 23:00 92/35 Mechanical Ventilator 40 04/10/16 22:40 75 18 40 04/10/16 22:00 24 98/47 99 Mechanical Ventilator 40 04/10/16 21:54 68 148/92 04/10/16 21:00 71 17 148/92 98 Mechanical Ventilator 40 04/10/16 20:44 72 16 40 04/10/16 20:00 40 04/10/16 20:00 97.2 71 17 140/52 98 Mechanical Ventilator 40 04/10/16 20:00 71 04/10/16 19:25 63 14 40 04/10/16 19:00 60 15 100/44 99 Mechanical Ventilator 40 04/10/16 18:00 65 14 93/42 100 Mechanical Ventilator 40 04/10/16 17:10 69 16 40 04/10/16 17:00 69 17 121/48 100 40 04/10/16 16:00 96.2 68 17 124/53 100 Mechanical Ventilator 40 04/10/16 16:00 40 04/10/16 16:00 68 04/10/16 15:10 70 16 40 04/10/16 15:02 63 16 127/65 98 Mechanical Ventilator 40 Objective: Status: awake, morbidly obese female on vent Condition: critical HEENT: atraumatic, normocephalic, OP with ET in place , NGT Lungs: rales - at bases Heart: HR/BP stable Abdomen: soft , obese, non-tender, active bowel sounds Extremities: edema - +1 BLE Accucheck: 145 Critical Care - Subjective ROS Limited/Unobtainable: Yes Interval Events: leukocytosis trending up this morning, afebrile not tolerating weaning ABG on SIMV with evidence of hypercapnia and mild hypoxemia on Lasix drip renal parameters stable CXR without much change IV Access: PICC - RUE intact EKG Rhythm: Sinus Rhythm FI02: 40 Vent Support Breath Rate: 14 Vent Support Mode: CPAP Vent Tidal Volume: 500 Sputum Amount: Small PEEP: 5.0 PIP: 17 Tube Feeding Amount: 35 I&O: Intake and Output 04/10/16 04/11/16 19:00 07:00 Intake Total 1103.708 ml 845 ml Output Total 3600 ml 3840 ml Balance -2496.292 ml -2995 ml Free Water 100 ml 100 ml IV Total 453.708 ml 295 ml Tube Feeding 490 ml 420 ml Other 60 ml 30 ml Output Urine Total 3600 ml 3840 ml # Bowel Movements 3 CXR: 04/11 -Markedly limited examination without gross interval change from 04/10/16. ET-Tube: 7.0 ET Position: 21 Rojas ([facility]),Jaquelin MAYER Apr 11, 2016 14:14
[2016-04-11 15:00] LABS: ABG PCO2 84.8 mmHg (35.0-45.0)
[2016-04-11 15:01] LABS: ABG ALLEN TEST POSITIVE; ABG BASE EXCESS 14.2
[2016-04-11] MEDS ORDERED: Tubing IV Secondary IV ONE (15:21)
[2016-04-11] MEDS ORDERED: NS 275ml ONE (15:21)
[2016-04-11] MEDS ORDERED: D5NS 1000ml IV ONE (15:21)
--- NOTE | 2016-04-11 21:50 | General Progress Note ---
Assessment/Plan Assessment/Plan Diagnosis 1. Acute hypoxemic and hypercapnic respiratory failure requiring intubation. 2. Acute kidney injury. 3. Morbid obesity. 4. Hypokalemia 5. Diabetes mellitus. 6. Congestive heart failure. 7. Chronic obstructive pulmonary disease. 8. Pulmonary hypertension. 9. severe edema/anasarca 10. Acute anemia 11. Acute diastolic heart failure plan: -continue icu care -daily labs -vent support per Dr. Anju mason iv antibioitics per Dr. Milan -nephrology input appreciated -cardiology input appreciated -type and cross match for one unit of PRBC -continue lasix drip 10 mg/hr, monitor bun/cr, I's and O's -continue weaning off vent -kcl liquid 20 meq once FULL code Subjective Date patient seen: Apr 11, 2016 Time patient seen: 21:47 HEENT: Reports: blurred vision, double vision, ear discharge, ear pain, eye pain, mouth pain, mouth swelling, no symptoms, nose congestion, nose pain, other , tearing, throat pain, throat swelling Allergies: Coded Allergies: AMOXICILLIN (Verified Allergy, Mild, RASH, 12/25/09) PENICILLINS (Unverified Allergy, Unknown, 04/06/16) Subjective patient seen in ICU Objective Last 24 Hour Vital Signs Date Time Temp Pulse Resp B/P Pulse Ox O2 Delivery O2 Flow Rate FiO2 04/11/16 21:44 61 114/67 04/11/16 21:00 65 22 114/67 100 Mechanical Ventilator 40 04/11/16 20:00 40 04/11/16 20:00 98.0 67 22 113/45 99 Mechanical Ventilator 40 04/11/16 19:02 67 15 40 04/11/16 19:00 72 22 115/51 100 Mechanical Ventilator 40 04/11/16 18:00 69 22 101/47 100 40 04/11/16 17:24 74 17 40 04/11/16 17:00 97.7 79 14 83/69 100 Mechanical Ventilator 40 04/11/16 16:00 70 04/11/16 16:00 40 04/11/16 16:00 82 20 116/61 100 Mechanical Ventilator 40 04/11/16 15:07 82 23 40 04/11/16 14:58 82 20 109/60 100 Mechanical Ventilator 40 04/11/16 14:00 60 116/67 04/11/16 14:00 83 22 100/65 99 Mechanical Ventilator 40 04/11/16 13:03 77 27 40 04/11/16 13:00 60 23 122/66 95 Mechanical Ventilator 40 04/11/16 12:00 40 04/11/16 12:00 65 04/11/16 12:00 62 16 110/60 96 Mechanical Ventilator 40 04/11/16 11:00 61 25 143/77 98 Mechanical Ventilator 40 04/11/16 10:44 61 15 40 04/11/16 10:00 65 20 121/51 99 Mechanical Ventilator 40 04/11/16 09:00 65 19 114/56 99 Mechanical Ventilator 40 04/11/16 08:57 68 04/11/16 08:36 97 04/11/16 08:34 67 16 40 04/11/16 08:00 98.1 70 20 110/60 99 Mechanical Ventilator 40 04/11/16 08:00 70 04/11/16 08:00 40 04/11/16 07:30 66 16 40 04/11/16 07:00 67 24 111/41 97 Mechanical Ventilator 40 04/11/16 06:24 76 123/56 04/11/16 06:00 74 14 123/56 96 Mechanical Ventilator 40 04/11/16 05:07 76 21 40 04/11/16 05:00 71 15 112/41 97 Mechanical Ventilator 40 04/11/16 04:00 98.9 71 26 112/44 97 Mechanical Ventilator 40 04/11/16 04:00 40 04/11/16 04:00 68 04/11/16 03:17 68 22 40 04/11/16 03:00 61 16 107/46 97 Mechanical Ventilator 40 04/11/16 02:00 60 16 99/59 98 Mechanical Ventilator 40 04/11/16 01:17 69 22 40 04/11/16 01:00 60 14 100/43 100 Mechanical Ventilator 40 04/11/16 00:00 97.8 71 18 98/30 98 Mechanical Ventilator 40 04/11/16 00:00 40 04/10/16 23:00 92/35 Mechanical Ventilator 40 04/10/16 22:40 75 18 40 04/10/16 22:00 24 98/47 99 Mechanical Ventilator 40 04/10/16 21:54 68 148/92 Intake and Output 04/10/16 04/11/16 19:00 07:00 Intake Total 1103.708 ml 845 ml Output Total 3600 ml 3840 ml Balance -2496.292 ml -2995 ml Free Water 100 ml 100 ml IV Total 453.708 ml 295 ml Tube Feeding 490 ml 420 ml Other 60 ml 30 ml Output Urine Total 3600 ml 3840 ml # Bowel Movements 3 Laboratory Tests 04/11/16 05:00: White Blood Count 5.8, Red Blood Count 2.95L, Hemoglobin 8.1L, Hematocrit 26.9L , Mean Corpuscular Volume 91, Mean Corpuscular Hemoglobin 27.4, Mean Corpuscular Hemoglobin Concent 30.1L, Red Cell Distribution Width 16.7H, Platelet Count 111L, Mean Platelet Volume 6.2L, Neutrophils (%) (Auto) 70.6, Lymphocytes (%) (Auto) 14.0L, Monocytes (%) (Auto) 9.6, Eosinophils (%) (Auto) 4.8H, Basophils (%) (Auto) 0.9, Sodium Level 146H, Potassium Level 3.4, Chloride Level 100, Carbon Dioxide Level 40H, Anion Gap 6, Blood Urea Nitrogen 53H, Creatinine 1.6H, Estimat Glomerular Filtration Rate , Glucose Level 135H, Uric Acid 8.5H, Calcium Level 8.1L, Phosphorus Level 2.8, Magnesium Level 1.6L, Total Bilirubin 0.4, Gamma Glutamyl Transpeptidase 22, Aspartate Amino Transf ( AST/SGOT) 13, Alanine Aminotransferase (ALT/SGPT) 10, Alkaline Phosphatase 57, Total Creatine Kinase 96, C-Reactive Protein, Quantitative 7.1H, Pro-B-Type Natriuretic Peptide 8600H, Total Protein 6.1L, Albumin 2.9L, Globulin 3.2, Albumin/Globulin Ratio 0.9L 04/11/16 08:02: Arterial Blood pH 7.424, Arterial Blood Partial Pressure CO2 59.3*H, Arterial Blood Partial Pressure O2 62.8L, Arterial Blood HCO3 37.9H, Arterial Blood Oxygen Saturation 91.9L, Arterial Blood Base Excess 12.0, Mike Test Positive 04/11/16 14:49: Arterial Blood pH 7.322L, Arterial Blood Partial Pressure CO2 84.8*H, Arterial Blood Partial Pressure O2 142.9H, Arterial Blood HCO3 42.9H, Arterial Blood Oxygen Saturation 98.3H, Arterial Blood Base Excess 14.2, Mike Test Positive Height (Feet): 5 Height (Inches): 8.00 Weight (Pounds): 350 General Appearance: no apparent distress, alert, morbidly obese EENT: PERRL/EOMI, normal ENT inspection Neck: supple Cardiovascular: irregularly irregular Respiratory/Chest: decreased breath sounds Abdomen: normal bowel sounds, non tender Extremities: swelling Edema: 2+ Arm (L), 2+ Arm (R), 2+ Leg (L), 2+ Leg (R), 2+ Pedal (L), 2+ Pedal ( R), 2+ Generalized Edema: moderate edema 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
[2016-04-11] MEDS ORDERED: KCl 10% 20 mEq/15ml liquid NG ONE (22:00)
[2016-04-12] VITALS (24 sets, daily range): BP systolic 87–221; BP diastolic 31–109
[2016-04-12] MEDS: NovoLOG Insulin Flexpen SUBQ SCH ×5 (00:44→23:43)
[2016-04-12] MEDS: LORazepam Inj 2mg/ml 1ml IV PRN (00:49)
[2016-04-12] MEDS: Aztreonam Inj 0.5 GM in D5W 55 ML IVPB SCH ×3 (06:00→21:26)
[2016-04-12 06:09] LABS: BASOPHILS % (AUTO) 0.6 % (0.0-2.0); EOSINOPHILS % (AUTO) 4.8 % (0.0-3.0); LYMPHOCYTES % (AUTO) 15.1 % (20.0-45.0); MEAN CORPUSCULAR HEMOGLOBIN 27.6 PG (27.0-31.0); MEAN CORPUSCULAR HGB CONC 30.3 G/DL (32.0-36.0); MEAN CORPUSCULAR VOLUME 91 FL (80-99); MEAN PLATELET VOLUME 6.5 FL (6.5-10.1); MONOCYTES % (AUTO) 10.8 % (1.0-10.0); NEUTROPHILS % (AUTO) 68.7 % (45.0-75.0); PLATELET COUNT 107 K/UL (150-450); RED BLOOD COUNT 2.93 M/UL (4.20-5.40); WHITE BLOOD COUNT 5.2 K/UL (4.8-10.8)
[2016-04-12] MEDS: Vancomycin 750mg/D5W 275ml IVPB SCH ×2 (06:19)
[2016-04-12 06:48] LABS: CALCIUM 8.1 mg/dL (8.6-10.2); CHLORIDE 99 mEQ/L (98-107); CREATININE 1.5 mg/dL (0.5-0.9); HEMOLYSIS 2; POTASSIUM 3.6 mEQ/L (3.4-4.9); SODIUM 145 mEQ/L (135-145)
[2016-04-12 06:54] LABS: ANION GAP 7 (5-15); CARBON DIOXIDE 39 mEQ/L (20-30)
--- NOTE | 2016-04-12 08:07 | Diagnostic Imaging Report ---
Indication: Dyspnea Technique: XRAY CHEST 1 V Comparison: 04/09/16 Findings: Elevation is technically limited. Endotracheal tube, left PICC line and nasogastric tube are again noted. The cardiomediastinal silhouette is stable. Central pulmonary vascular congestion is unchanged. There is retrocardiac atelectasis and/or pleural fluid. Osseous structures are stable. Impression: Limited examination without gross interval change from 04/09/16.
[2016-04-12 08:49] LABS: ABG ALLEN TEST POSITIVE
[2016-04-12] MEDS: Vitamin D 1000 IU Tab GT SCH (08:59)
[2016-04-12] MEDS: Pantoprazole Inj IV SCH (08:59)
[2016-04-12] MEDS: Digoxin Elixir 0.125mg NG SCH (08:59)
[2016-04-12] MEDS: Calcium Carbonate 650mg Tab NG SCH ×3 (08:59→19:42)
[2016-04-12] MEDS: Heparin 5000 units/ml inj SUBQ SCH ×2 (09:00→21:28)
--- NOTE | 2016-04-12 11:09 | Infectious Diseases Prog Note ---
Assessment/Plan Assessment/Plan A: The patient is a 75-year-old female with Leukocytosis , SP Sepsis Pneumonia SCX: NL Fl LLExt Cellulitis improving UCx :Neg VDRF Obesity CHF HTN COPD GERD. DM PLAN: Cont on Levaquin, vancomycin, and Azactam d# 7 / Monitor CBC Monitor BMP. Monitor renal function. Monitor CBC. Monitor chest x-ray. Vent support Subjective Constitutional: Denies: anorexia, chills, drenching sweats, fatigue, fever, no symptoms, other Allergies: Coded Allergies: AMOXICILLIN (Verified Allergy, Mild, RASH, 12/25/09) PENICILLINS (Unverified Allergy, Unknown, 04/06/16) Subjective on vent Objective Vital Signs Last 24 Hour Vital Signs Date Time Temp Pulse Resp B/P Pulse Ox O2 Delivery O2 Flow Rate FiO2 04/12/16 10:00 56 20 87/46 98 Mechanical Ventilator 40 04/12/16 09:00 40 04/12/16 09:00 59 20 120/49 99 Mechanical Ventilator 40 04/12/16 09:00 65 20 40 04/12/16 08:59 71 04/12/16 08:00 98.7 63 16 109/43 98 Mechanical Ventilator 40 04/12/16 08:00 40 04/12/16 08:00 57 04/12/16 07:15 60 14 40 04/12/16 07:00 59 18 96/39 98 Mechanical Ventilator 40 04/12/16 06:00 61 18 121/43 98 Mechanical Ventilator 40 04/12/16 06:00 53 121/43 04/12/16 05:33 60 14 40 04/12/16 05:00 69 18 114/40 98 Mechanical Ventilator 40 63 04/12/16 04:00 57 14 116/35 98 Mechanical Ventilator 40 04/12/16 04:00 68 04/12/16 04:00 40 04/12/16 03:31 62 14 40 04/12/16 03:00 63 18 91/31 98 Mechanical Ventilator 40 04/12/16 02:00 69 18 89/35 98 Mechanical Ventilator 40 04/12/16 01:27 69 15 40 04/12/16 01:00 69 18 108/40 98 Mechanical Ventilator 40 04/12/16 00:00 98.8 67 17 102/46 98 Mechanical Ventilator 40 04/12/16 00:00 40 04/12/16 00:00 64 04/11/16 23:39 67 14 40 04/11/16 23:00 69 22 111/49 100 Mechanical Ventilator 40 04/11/16 22:00 70 20 80/56 100 Mechanical Ventilator 40 04/11/16 21:44 61 114/67 04/11/16 21:00 59 14 40 04/11/16 21:00 65 22 114/67 100 Mechanical Ventilator 40 04/11/16 20:00 68 04/11/16 20:00 40 04/11/16 20:00 98.0 67 22 113/45 99 Mechanical Ventilator 40 04/11/16 19:02 67 15 40 04/11/16 19:00 72 22 115/51 100 Mechanical Ventilator 40 04/11/16 18:00 69 22 101/47 100 40 04/11/16 17:24 74 17 40 04/11/16 17:00 97.7 79 14 83/69 100 Mechanical Ventilator 40 04/11/16 16:00 70 04/11/16 16:00 40 04/11/16 16:00 82 20 116/61 100 Mechanical Ventilator 40 04/11/16 15:07 82 23 40 04/11/16 14:58 82 20 109/60 100 Mechanical Ventilator 40 04/11/16 14:00 60 116/67 04/11/16 14:00 83 22 100/65 99 Mechanical Ventilator 40 04/11/16 13:03 77 27 40 04/11/16 13:00 60 23 122/66 95 Mechanical Ventilator 40 04/11/16 12:00 40 04/11/16 12:00 65 04/11/16 12:00 62 16 110/60 96 Mechanical Ventilator 40 Height (Feet): 5 Height (Inches): 8.00 Weight (Pounds): 350 HEENT: anicteric Respiratory/Chest: lungs clear Cardiovascular: regular rhythm Abdomen: non distended Laboratory Tests Test 04/11/16 14:49 04/12/16 05:00 04/12/16 08:30 Arterial Blood pH 7.322 (7.350-7.450) 7.386 (7.350-7.450) Arterial Blood Partial Pressure CO2 84.8 mmHg (35.0-45.0) *H 78.0 mmHg (35.0-45.0) *H Arterial Blood Partial Pressure O2 142.9 mmHg (75.0-100.0) H 103.5 mmHg (75.0-100.0) H Arterial Blood HCO3 42.9 mmol/L (22.0-26.0) H 45.7 mmol/L (22.0-26.0) H Arterial Blood Oxygen Saturation 98.3 % (92.0-98.0) H 97.2 % (92.0-98.0) Arterial Blood Base Excess 14.2 18.0 Mike Test Positive Positive White Blood Count 5.2 K/UL (4.8-10.8) Red Blood Count 2.93 M/UL (4.20-5.40) L Hemoglobin 8.1 G/DL (12.0-16.0) L Hematocrit 26.7 % (37.0-47.0) L Mean Corpuscular Volume 91 FL (80-99) Mean Corpuscular Hemoglobin 27.6 PG (27.0-31.0) Mean Corpuscular Hemoglobin Concent 30.3 G/DL (32.0-36.0) L Red Cell Distribution Width 17.0 % (11.6-14.8) H Platelet Count 107 K/UL (150-450) L Mean Platelet Volume 6.5 FL (6.5-10.1) Neutrophils (%) (Auto) 68.7 % (45.0-75.0) Lymphocytes (%) (Auto) 15.1 % (20.0-45.0) L Monocytes (%) (Auto) 10.8 % (1.0-10.0) H Eosinophils (%) (Auto) 4.8 % (0.0-3.0) H Basophils (%) (Auto) 0.6 % (0.0-2.0) Sodium Level 145 mEQ/L (135-145) Potassium Level 3.6 mEQ/L (3.4-4.9) Chloride Level 99 mEQ/L (98-107) Carbon Dioxide Level 39 mEQ/L (20-30) H Anion Gap 7 (5-15) Blood Urea Nitrogen 47 mg/dL (7-23) H Creatinine 1.5 mg/dL (0.5-0.9) H Estimat Glomerular Filtration Rate mL/min (>60) Glucose Level 135 mg/dL (74-106) H Calcium Level 8.1 mg/dL (8.6-10.2) L Current Medications Medications (Trade) Dose Ordered Sig/Kalyn Route PRN Reason Start Time Stop Time Status Last Admin Dose Admin Acetaminophen 650 mg 650 mg Q4H PRN RECTAL FEVER>100.5 04/06/16 10:52 05/06/16 10:29 Albuterol/ Ipratropium (DuoNeb 0.5-3(2.5)mg/3ml) 3 ml Q4H PRN HHN Shortness of Breath 04/10/16 14:30 04/15/16 23:59 Aztreonam 0.5 gm/ Dextrose 55 ml @ 110 mls/hr Q8HR IVPB 04/06/16 22:00 04/17/16 21:59 04/12/16 06:00 Calcium Carbonate (Calcium Carbonate) 650 mg THREE TIMES A DAY NG 04/08/16 13:00 05/08/16 12:59 04/12/16 08:59 Dextrose (Dextrose 50%) STAT PRN IV Hypoglycemia 04/06/16 10:30 05/06/16 10:29 Digoxin (Lanoxin) 0.125 mg DAILY NG 04/08/16 09:00 05/08/16 08:59 04/12/16 08:59 Diltiazem HCl (Cardizem) 30 mg EVERY 8 HOURS NG 04/08/16 15:13 05/07/16 14:59 04/11/16 06:24 Furosemide/ Dextrose (Lasix/D5W) 100 ml @ 10 mls/hr Q10H IV 04/09/16 21:30 05/09/16 21:29 04/12/16 08:58 Heparin Sodium (Porcine) (Heparin 5000 units/ml) 5,000 units EVERY 12 HOURS SUBQ 04/06/16 21:00 05/06/16 20:59 04/12/16 09:00 Insulin Aspart EVERY 6 HOURS SUBQ 04/09/16 18:00 05/09/16 17:59 04/12/16 00:44 Levofloxacin (Levaquin) 50 ml @ 50 mls/hr Q24H IVPB 04/07/16 15:00 04/14/16 14:59 04/11/16 14:27 Lorazepam (Ativan 2mg/ml 1ml) 0.5 mg Q4H PRN IV For Anxiety 04/11/16 14:30 04/18/16 14:29 04/12/16 00:49 Morphine Sulfate (Morphine Sulfate) 4 mg Q4H PRN IVP For Pain 04/11/16 14:30 04/18/16 14:29 Ondansetron HCl (Zofran) 4 mg Q6H PRN IVP Nausea & Vomiting 04/06/16 10:30 05/06/16 10:29 04/11/16 08:57 Pantoprazole (Protonix) 40 mg DAILY IV 04/06/16 10:30 05/06/16 10:29 04/12/16 08:59 Polyethylene Glycol (Miralax) 17 gm DAILYPRN PRN GT Constipation 04/08/16 15:13 05/06/16 10:59 Vancomycin HCl (Vanco rx to dose) 1 ea DAILY PRN MISC Per rx protocol 04/06/16 11:00 05/06/16 10:59 Vancomycin HCl 750 mg/Dextrose 275 ml @ 183.708 mls/hr Q24H IVPB 04/07/16 06:00 04/13/16 05:59 04/12/16 06:19 Vitamin D (Vitamin D) 5,000 intlu DAILY GT 04/08/16 13:00 05/08/16 12:59 04/12/16 08:59 LINDSEY HILL M.D. Apr 12, 2016 11:09
--- NOTE | 2016-04-12 11:13 | Pulmonolgy Critical Care Note ---
Critical Care - Asmt/Plan Problems: (1) Acute respiratory failure with hypoxia and hypercarbia (2) COPD exacerbation (3) Pneumonia (4) Atrial fibrillation with RVR (5) Morbid obesity Respiratory: monitor respiratory rate, adjust FIO2 Cardiac: continue pressors, stop pressors Renal: keep IV fluid Infectious Disease: check cultures Gastrointestinal: continue feedings/current rate, hold feedings Endocrine: check TSH, continue sliding scale insulin Hematologic: transfuse if hgb<8.5 Neurologic: PRN Ativan, PRN Morphine, keep patient comfortable Affect: PRN ativan Prophylaxis: Protonix Notes Reviewed: traffic inspector, renal 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: watch case polisherlottery manager - Objective Last 24 Hour Vital Signs Date Time Temp Pulse Resp B/P Pulse Ox O2 Delivery O2 Flow Rate FiO2 04/12/16 10:00 56 20 87/46 98 Mechanical Ventilator 40 04/12/16 09:00 40 04/12/16 09:00 59 20 120/49 99 Mechanical Ventilator 40 04/12/16 09:00 65 20 40 04/12/16 08:59 71 04/12/16 08:00 98.7 63 16 109/43 98 Mechanical Ventilator 40 04/12/16 08:00 40 04/12/16 08:00 57 04/12/16 07:15 60 14 40 04/12/16 07:00 59 18 96/39 98 Mechanical Ventilator 40 04/12/16 06:00 61 18 121/43 98 Mechanical Ventilator 40 04/12/16 06:00 53 121/43 04/12/16 05:33 60 14 40 04/12/16 05:00 69 18 114/40 98 Mechanical Ventilator 40 63 04/12/16 04:00 57 14 116/35 98 Mechanical Ventilator 40 04/12/16 04:00 68 04/12/16 04:00 40 04/12/16 03:31 62 14 40 04/12/16 03:00 63 18 91/31 98 Mechanical Ventilator 40 04/12/16 02:00 69 18 89/35 98 Mechanical Ventilator 40 04/12/16 01:27 69 15 40 04/12/16 01:00 69 18 108/40 98 Mechanical Ventilator 40 04/12/16 00:00 98.8 67 17 102/46 98 Mechanical Ventilator 40 04/12/16 00:00 40 04/12/16 00:00 64 04/11/16 23:39 67 14 40 04/11/16 23:00 69 22 111/49 100 Mechanical Ventilator 40 04/11/16 22:00 70 20 80/56 100 Mechanical Ventilator 40 04/11/16 21:44 61 114/67 04/11/16 21:00 59 14 40 04/11/16 21:00 65 22 114/67 100 Mechanical Ventilator 40 04/11/16 20:00 68 04/11/16 20:00 40 04/11/16 20:00 98.0 67 22 113/45 99 Mechanical Ventilator 40 04/11/16 19:02 67 15 40 04/11/16 19:00 72 22 115/51 100 Mechanical Ventilator 40 04/11/16 18:00 69 22 101/47 100 40 04/11/16 17:24 74 17 40 04/11/16 17:00 97.7 79 14 83/69 100 Mechanical Ventilator 40 04/11/16 16:00 70 04/11/16 16:00 40 04/11/16 16:00 82 20 116/61 100 Mechanical Ventilator 40 04/11/16 15:07 82 23 40 04/11/16 14:58 82 20 109/60 100 Mechanical Ventilator 40 04/11/16 14:00 60 116/67 04/11/16 14:00 83 22 100/65 99 Mechanical Ventilator 40 04/11/16 13:03 77 27 40 04/11/16 13:00 60 23 122/66 95 Mechanical Ventilator 40 04/11/16 12:00 40 04/11/16 12:00 65 04/11/16 12:00 62 16 110/60 96 Mechanical Ventilator 40 Status: sedated Condition: critical HEENT: atraumatic Lungs: clear, chest wall tender Heart: HR/BP unstable, regular Abdomen: soft, non-tender, active bowel sounds Extremities: no C/C/E, edema Decubiti: stage Accucheck: 87 Critical Care - Subjective ROS Limited/Unobtainable: No ICU Day: 6 Intubation Day: 6 Condition: critical EKG Rhythm: Sinus Rhythm FI02: 40 Vent Support Breath Rate: 20 Vent Support Mode: AC Vent Tidal Volume: 500 Sputum Amount: Moderate PEEP: 5.0 PIP: 42 Tube Feeding Amount: 35 I&O: Intake and Output 04/11/16 04/12/16 18:59 06:59 Intake Total 1327.416 ml 725 ml Output Total 2350 ml 2190 ml Balance -1022.584 ml -1465 ml Free Water 170 ml 50 ml IV Total 707.416 ml 275 ml Tube Feeding 420 ml 400 ml Other 30 ml Output Urine Total 2350 ml 2190 ml # Bowel Movements 2 CXR: improving ET-Tube: 7.0 ET Position: 21 Labs: Laboratory Tests Test 04/11/16 14:49 04/12/16 05:00 04/12/16 08:30 Arterial Blood pH 7.322 (7.350-7.450) 7.386 (7.350-7.450) Arterial Blood Partial Pressure CO2 84.8 mmHg (35.0-45.0) *H 78.0 mmHg (35.0-45.0) *H Arterial Blood Partial Pressure O2 142.9 mmHg (75.0-100.0) H 103.5 mmHg (75.0-100.0) H Arterial Blood HCO3 42.9 mmol/L (22.0-26.0) H 45.7 mmol/L (22.0-26.0) H Arterial Blood Oxygen Saturation 98.3 % (92.0-98.0) H 97.2 % (92.0-98.0) Arterial Blood Base Excess 14.2 18.0 Mike Test Positive Positive White Blood Count 5.2 K/UL (4.8-10.8) Red Blood Count 2.93 M/UL (4.20-5.40) L Hemoglobin 8.1 G/DL (12.0-16.0) L Hematocrit 26.7 % (37.0-47.0) L Mean Corpuscular Volume 91 FL (80-99) Mean Corpuscular Hemoglobin 27.6 PG (27.0-31.0) Mean Corpuscular Hemoglobin Concent 30.3 G/DL (32.0-36.0) L Red Cell Distribution Width 17.0 % (11.6-14.8) H Platelet Count 107 K/UL (150-450) L Mean Platelet Volume 6.5 FL (6.5-10.1) Neutrophils (%) (Auto) 68.7 % (45.0-75.0) Lymphocytes (%) (Auto) 15.1 % (20.0-45.0) L Monocytes (%) (Auto) 10.8 % (1.0-10.0) H Eosinophils (%) (Auto) 4.8 % (0.0-3.0) H Basophils (%) (Auto) 0.6 % (0.0-2.0) Sodium Level 145 mEQ/L (135-145) Potassium Level 3.6 mEQ/L (3.4-4.9) Chloride Level 99 mEQ/L (98-107) Carbon Dioxide Level 39 mEQ/L (20-30) H Anion Gap 7 (5-15) Blood Urea Nitrogen 47 mg/dL (7-23) H Creatinine 1.5 mg/dL (0.5-0.9) H Estimat Glomerular Filtration Rate mL/min (>60) Glucose Level 135 mg/dL (74-106) H Calcium Level 8.1 mg/dL (8.6-10.2) ARASH LUIS Apr 12, 2016 11:13
--- NOTE | 2016-04-12 12:28 | Diagnostic Imaging Report ---
Indication: Dyspnea Comparison: 04/11/16 A single view chest radiograph was obtained. Findings: Exam is limited by breathing motion. Cardiomegaly is again demonstrated. Pulmonary vascularity appears slightly improved. Tubes and lines are stable. Impression: Limited study. CHF appears slightly improved from the previous day
--- NOTE | 2016-04-12 13:14 | General Progress Note ---
Assessment/Plan Status: stable - from renal stand, unchanged - from pulmonary stand Status Narrative Cr 1.5 Ca 8.1 Assessment/Plan status: Acute renal failure- Acute Respiratory Failure Anemia Morbid Obesity CHF ? Sepsis Plan: Stop IV fluid Calcium supplements with Vit D on board- Optimize cardiac and pulmonary status- Avoid Nephrotoxics- monitor renal parameters Urine studies- Keep BP over 100 syst Antibiotics Subjective ROS Limited/Unobtainable: Yes Allergies: Coded Allergies: AMOXICILLIN (Verified Allergy, Mild, RASH, 12/25/09) PENICILLINS (Unverified Allergy, Unknown, 04/06/16) Objective Last 24 Hour Vital Signs Date Time Temp Pulse Resp B/P Pulse Ox O2 Delivery O2 Flow Rate FiO2 04/12/16 12:03 98.3 57 20 108/41 99 Mechanical Ventilator 40 04/12/16 11:55 52 04/12/16 11:55 40 04/12/16 11:28 65 20 40 04/12/16 11:00 53 20 118/46 100 Mechanical Ventilator 40 04/12/16 10:00 56 20 87/46 98 Mechanical Ventilator 40 04/12/16 09:00 40 04/12/16 09:00 59 20 120/49 99 Mechanical Ventilator 40 04/12/16 09:00 65 20 40 04/12/16 08:59 71 04/12/16 08:00 98.7 63 16 109/43 98 Mechanical Ventilator 40 04/12/16 08:00 40 04/12/16 08:00 57 04/12/16 07:15 60 14 40 04/12/16 07:00 59 18 96/39 98 Mechanical Ventilator 40 04/12/16 06:00 61 18 121/43 98 Mechanical Ventilator 40 04/12/16 06:00 53 121/43 04/12/16 05:33 60 14 40 04/12/16 05:00 69 18 114/40 98 Mechanical Ventilator 40 63 04/12/16 04:00 57 14 116/35 98 Mechanical Ventilator 40 04/12/16 04:00 68 04/12/16 04:00 40 04/12/16 03:31 62 14 40 04/12/16 03:00 63 18 91/31 98 Mechanical Ventilator 40 04/12/16 02:00 69 18 89/35 98 Mechanical Ventilator 40 04/12/16 01:27 69 15 40 04/12/16 01:00 69 18 108/40 98 Mechanical Ventilator 40 04/12/16 00:00 98.8 67 17 102/46 98 Mechanical Ventilator 40 04/12/16 00:00 40 04/12/16 00:00 64 04/11/16 23:39 67 14 40 04/11/16 23:00 69 22 111/49 100 Mechanical Ventilator 40 04/11/16 22:00 70 20 80/56 100 Mechanical Ventilator 40 04/11/16 21:44 61 114/67 04/11/16 21:00 59 14 40 04/11/16 21:00 65 22 114/67 100 Mechanical Ventilator 40 04/11/16 20:00 68 04/11/16 20:00 40 04/11/16 20:00 98.0 67 22 113/45 99 Mechanical Ventilator 40 04/11/16 19:02 67 15 40 04/11/16 19:00 72 22 115/51 100 Mechanical Ventilator 40 04/11/16 18:00 69 22 101/47 100 40 04/11/16 17:24 74 17 40 04/11/16 17:00 97.7 79 14 83/69 100 Mechanical Ventilator 40 04/11/16 16:00 70 04/11/16 16:00 40 04/11/16 16:00 82 20 116/61 100 Mechanical Ventilator 40 04/11/16 15:07 82 23 40 04/11/16 14:58 82 20 109/60 100 Mechanical Ventilator 40 04/11/16 14:00 60 116/67 04/11/16 14:00 83 22 100/65 99 Mechanical Ventilator 40 Intake and Output 04/11/16 04/12/16 19:00 07:00 Intake Total 1207.416 ml 775 ml Output Total 2550 ml 1890 ml Balance -1342.584 ml -1115 ml Free Water 170 ml 100 ml IV Total 587.416 ml 275 ml Tube Feeding 420 ml 400 ml Other 30 ml Output Urine Total 2550 ml 1890 ml # Voids 100 # Bowel Movements 2 Laboratory Tests 04/11/16 14:49: Arterial Blood pH 7.322L, Arterial Blood Partial Pressure CO2 84.8*H, Arterial Blood Partial Pressure O2 142.9H, Arterial Blood HCO3 42.9H, Arterial Blood Oxygen Saturation 98.3H, Arterial Blood Base Excess 14.2, Mike Test Positive 04/12/16 05:00: White Blood Count 5.2, Red Blood Count 2.93L, Hemoglobin 8.1L, Hematocrit 26.7L , Mean Corpuscular Volume 91, Mean Corpuscular Hemoglobin 27.6, Mean Corpuscular Hemoglobin Concent 30.3L, Red Cell Distribution Width 17.0H, Platelet Count 107L, Mean Platelet Volume 6.5, Neutrophils (%) (Auto) 68.7, Lymphocytes (%) (Auto) 15.1L, Monocytes (%) (Auto) 10.8H, Eosinophils (%) (Auto ) 4.8H, Basophils (%) (Auto) 0.6, Sodium Level 145, Potassium Level 3.6, Chloride Level 99, Carbon Dioxide Level 39H, Anion Gap 7, Blood Urea Nitrogen 47H, Creatinine 1.5H, Estimat Glomerular Filtration Rate , Glucose Level 135H, Calcium Level 8.1L 04/12/16 08:30: Arterial Blood pH 7.386, Arterial Blood Partial Pressure CO2 78.0*H, Arterial Blood Partial Pressure O2 103.5H, Arterial Blood HCO3 45.7H, Arterial Blood Oxygen Saturation 97.2, Arterial Blood Base Excess 18.0, Mike Test Positive Height (Feet): 5 Height (Inches): 8.00 Weight (Pounds): 350 General Appearance: no apparent distress Objective other PE not changed COURTNEY LOPEZ Apr 12, 2016 13:14
--- NOTE | 2016-04-12 15:56 | Cardiac Electrophysiology PN ---
Assessment/Plan Assessment/Plan 1. Respiratory failure, due to chronic obstructive pulmonary disease and volume overload in view of renal failure with BNP is 7700. On Vent. Echocardiogram showed ejection fraction of 55% to 60%. On Lasix drip at 10 mg/hr. 2. Atrial fibrillation, rapid ventricular response. Avoid beta-blockers. Continue Dig 0.125 and Cardizem 30 mg three times a day 3. Lower extremity cellulitis, on IV antibiotics with vancomycin and aztreonam. 4. Morbid obesity. ALLERGY AND IMMUNOLOGY CHIEF Subjective Subjective In ICU on Vent alert and communicating by writing on a paper board. Fib rate stable on Digoxin and Cardizem.Failed weaning again. Objective Last 24 Hour Vital Signs Date Time Temp Pulse Resp B/P Pulse Ox O2 Delivery O2 Flow Rate FiO2 04/12/16 15:27 65 20 40 04/12/16 15:00 62 17 121/51 98 Mechanical Ventilator 40 04/12/16 14:28 64 120/65 04/12/16 14:00 60 14 120/65 99 Mechanical Ventilator 40 04/12/16 13:20 63 20 40 04/12/16 13:00 64 17 117/76 98 Mechanical Ventilator 40 04/12/16 12:03 98.3 57 20 108/41 99 Mechanical Ventilator 40 04/12/16 11:55 52 04/12/16 11:55 40 04/12/16 11:28 65 20 40 04/12/16 11:00 53 20 118/46 100 Mechanical Ventilator 40 04/12/16 10:00 56 20 87/46 98 Mechanical Ventilator 40 04/12/16 09:00 40 04/12/16 09:00 59 20 120/49 99 Mechanical Ventilator 40 04/12/16 09:00 65 20 40 04/12/16 08:59 71 04/12/16 08:00 98.7 63 16 109/43 98 Mechanical Ventilator 40 04/12/16 08:00 40 04/12/16 08:00 57 04/12/16 07:15 60 14 40 04/12/16 07:00 59 18 96/39 98 Mechanical Ventilator 40 04/12/16 06:00 61 18 121/43 98 Mechanical Ventilator 40 04/12/16 06:00 53 121/43 04/12/16 05:33 60 14 40 04/12/16 05:00 69 18 114/40 98 Mechanical Ventilator 40 63 04/12/16 04:00 57 14 116/35 98 Mechanical Ventilator 40 04/12/16 04:00 68 04/12/16 04:00 40 04/12/16 03:31 62 14 40 04/12/16 03:00 63 18 91/31 98 Mechanical Ventilator 40 04/12/16 02:00 69 18 89/35 98 Mechanical Ventilator 40 04/12/16 01:27 69 15 40 04/12/16 01:00 69 18 108/40 98 Mechanical Ventilator 40 04/12/16 00:00 98.8 67 17 102/46 98 Mechanical Ventilator 40 04/12/16 00:00 40 04/12/16 00:00 64 04/11/16 23:39 67 14 40 04/11/16 23:00 69 22 111/49 100 Mechanical Ventilator 40 04/11/16 22:00 70 20 80/56 100 Mechanical Ventilator 40 04/11/16 21:44 61 114/67 04/11/16 21:00 59 14 40 04/11/16 21:00 65 22 114/67 100 Mechanical Ventilator 40 04/11/16 20:00 68 04/11/16 20:00 40 04/11/16 20:00 98.0 67 22 113/45 99 Mechanical Ventilator 40 04/11/16 19:02 67 15 40 04/11/16 19:00 72 22 115/51 100 Mechanical Ventilator 40 04/11/16 18:00 69 22 101/47 100 40 04/11/16 17:24 74 17 40 04/11/16 17:00 97.7 79 14 83/69 100 Mechanical Ventilator 40 04/11/16 16:00 70 04/11/16 16:00 40 04/11/16 16:00 82 20 116/61 100 Mechanical Ventilator 40 Intake and Output 04/11/16 04/12/16 19:00 07:00 Intake Total 1207.416 ml 775 ml Output Total 2550 ml 1890 ml Balance -1342.584 ml -1115 ml Free Water 170 ml 100 ml IV Total 587.416 ml 275 ml Tube Feeding 420 ml 400 ml Other 30 ml Output Urine Total 2550 ml 1890 ml # Voids 100 # Bowel Movements 2 Laboratory Tests Test 04/12/16 05:00 04/12/16 08:30 White Blood Count 5.2 K/UL (4.8-10.8) Red Blood Count 2.93 M/UL (4.20-5.40) L Hemoglobin 8.1 G/DL (12.0-16.0) L Hematocrit 26.7 % (37.0-47.0) L Mean Corpuscular Volume 91 FL (80-99) Mean Corpuscular Hemoglobin 27.6 PG (27.0-31.0) Mean Corpuscular Hemoglobin Concent 30.3 G/DL (32.0-36.0) L Red Cell Distribution Width 17.0 % (11.6-14.8) H Platelet Count 107 K/UL (150-450) L Mean Platelet Volume 6.5 FL (6.5-10.1) Neutrophils (%) (Auto) 68.7 % (45.0-75.0) Lymphocytes (%) (Auto) 15.1 % (20.0-45.0) L Monocytes (%) (Auto) 10.8 % (1.0-10.0) H Eosinophils (%) (Auto) 4.8 % (0.0-3.0) H Basophils (%) (Auto) 0.6 % (0.0-2.0) Sodium Level 145 mEQ/L (135-145) Potassium Level 3.6 mEQ/L (3.4-4.9) Chloride Level 99 mEQ/L (98-107) Carbon Dioxide Level 39 mEQ/L (20-30) H Anion Gap 7 (5-15) Blood Urea Nitrogen 47 mg/dL (7-23) H Creatinine 1.5 mg/dL (0.5-0.9) H Estimat Glomerular Filtration Rate mL/min (>60) Glucose Level 135 mg/dL (74-106) H Calcium Level 8.1 mg/dL (8.6-10.2) L Arterial Blood pH 7.386 (7.350-7.450) Arterial Blood Partial Pressure CO2 78.0 mmHg (35.0-45.0) *H Arterial Blood Partial Pressure O2 103.5 mmHg (75.0-100.0) H Arterial Blood HCO3 45.7 mmol/L (22.0-26.0) H Arterial Blood Oxygen Saturation 97.2 % (92.0-98.0) Arterial Blood Base Excess 18.0 Mike Test Positive Objective HEAD AND NECK: Orally intubated with NG tube. LUNGS: Coarse rhonchi bilaterally. CARDIOVASCULAR: Irregularly irregular S1 and S2 with no gallop or murmur. ABDOMEN: Morbidly obese. EXTREMITIES: 1+ pitting edema.Left leg cellulitis. JOHN NUÑEZ Apr 12, 2016 15:56
--- NOTE | 2016-04-12 19:37 | General Progress Note ---
Assessment/Plan Status: progressing Assessment/Plan Diagnosis 1. Acute hypoxemic and hypercapnic respiratory failure requiring intubation. 2. Acute kidney injury. 3. Morbid obesity. 4. Hypokalemia 5. Diabetes mellitus. 6. Congestive heart failure. 7. Chronic obstructive pulmonary disease. 8. Pulmonary hypertension. 9. severe edema/anasarca 10. Acute anemia 11. Acute diastolic heart failure 12. left lower extremity cellulitis plan: -continue icu care -daily labs -vent support per Dr. Rene -zoila iv vanco and aztreonam per Dr. Milan -nephrology input appreciated -cardiology input appreciated -type and cross match for one unit of PRBC -continue lasix drip 10 mg/hr, monitor bun/cr, I's and O's -continue weaning off vent -supplement k discussed with ICU nruse in detail FULL code Subjective Date patient seen: Apr 12, 2016 Time patient seen: 19:33 Allergies: Coded Allergies: AMOXICILLIN (Verified Allergy, Mild, RASH, 12/25/09) PENICILLINS (Unverified Allergy, Unknown, 04/06/16) All Systems: reviewed and negative except above Subjective patient seen in ICU Objective Last 24 Hour Vital Signs Date Time Temp Pulse Resp B/P Pulse Ox O2 Delivery O2 Flow Rate FiO2 04/12/16 17:18 63 20 40 04/12/16 16:00 96.2 60 10 115/54 100 Mechanical Ventilator 40 04/12/16 16:00 60 04/12/16 16:00 40 04/12/16 15:27 65 20 40 04/12/16 15:00 62 17 121/51 98 Mechanical Ventilator 40 04/12/16 14:28 64 120/65 04/12/16 14:00 60 14 120/65 99 Mechanical Ventilator 40 04/12/16 13:20 63 20 40 04/12/16 13:00 64 17 117/76 98 Mechanical Ventilator 40 04/12/16 12:03 98.3 57 20 108/41 99 Mechanical Ventilator 40 04/12/16 11:55 52 04/12/16 11:55 40 04/12/16 11:28 65 20 40 04/12/16 11:00 53 20 118/46 100 Mechanical Ventilator 40 04/12/16 10:00 56 20 87/46 98 Mechanical Ventilator 40 04/12/16 09:00 40 04/12/16 09:00 59 20 120/49 99 Mechanical Ventilator 40 04/12/16 09:00 65 20 40 04/12/16 08:59 71 04/12/16 08:00 98.7 63 16 109/43 98 Mechanical Ventilator 40 04/12/16 08:00 40 04/12/16 08:00 57 04/12/16 07:15 60 14 40 04/12/16 07:00 59 18 96/39 98 Mechanical Ventilator 40 04/12/16 06:00 61 18 121/43 98 Mechanical Ventilator 40 04/12/16 06:00 53 121/43 04/12/16 05:33 60 14 40 04/12/16 05:00 69 18 114/40 98 Mechanical Ventilator 40 63 04/12/16 04:00 57 14 116/35 98 Mechanical Ventilator 40 04/12/16 04:00 68 04/12/16 04:00 40 04/12/16 03:31 62 14 40 04/12/16 03:00 63 18 91/31 98 Mechanical Ventilator 40 04/12/16 02:00 69 18 89/35 98 Mechanical Ventilator 40 04/12/16 01:27 69 15 40 04/12/16 01:00 69 18 108/40 98 Mechanical Ventilator 40 04/12/16 00:00 98.8 67 17 102/46 98 Mechanical Ventilator 40 04/12/16 00:00 40 04/12/16 00:00 64 04/11/16 23:39 67 14 40 04/11/16 23:00 69 22 111/49 100 Mechanical Ventilator 40 04/11/16 22:00 70 20 80/56 100 Mechanical Ventilator 40 04/11/16 21:44 61 114/67 04/11/16 21:00 59 14 40 04/11/16 21:00 65 22 114/67 100 Mechanical Ventilator 40 04/11/16 20:00 68 04/11/16 20:00 40 04/11/16 20:00 98.0 67 22 113/45 99 Mechanical Ventilator 40 Intake and Output 04/11/16 04/12/16 19:00 07:00 Intake Total 1207.416 ml 775 ml Output Total 2550 ml 1890 ml Balance -1342.584 ml -1115 ml Free Water 170 ml 100 ml IV Total 587.416 ml 275 ml Tube Feeding 420 ml 400 ml Other 30 ml Output Urine Total 2550 ml 1890 ml # Voids 100 # Bowel Movements 2 Laboratory Tests 04/12/16 05:00: White Blood Count 5.2, Red Blood Count 2.93L, Hemoglobin 8.1L, Hematocrit 26.7L , Mean Corpuscular Volume 91, Mean Corpuscular Hemoglobin 27.6, Mean Corpuscular Hemoglobin Concent 30.3L, Red Cell Distribution Width 17.0H, Platelet Count 107L, Mean Platelet Volume 6.5, Neutrophils (%) (Auto) 68.7, Lymphocytes (%) (Auto) 15.1L, Monocytes (%) (Auto) 10.8H, Eosinophils (%) (Auto ) 4.8H, Basophils (%) (Auto) 0.6, Sodium Level 145, Potassium Level 3.6, Chloride Level 99, Carbon Dioxide Level 39H, Anion Gap 7, Blood Urea Nitrogen 47H, Creatinine 1.5H, Estimat Glomerular Filtration Rate , Glucose Level 135H, Calcium Level 8.1L 04/12/16 08:30: Arterial Blood pH 7.386, Arterial Blood Partial Pressure CO2 78.0*H, Arterial Blood Partial Pressure O2 103.5H, Arterial Blood HCO3 45.7H, Arterial Blood Oxygen Saturation 97.2, Arterial Blood Base Excess 18.0, Mike Test Positive Height (Feet): 5 Height (Inches): 8.00 Weight (Pounds): 350 General Appearance: WD/WN, alert, morbidly obese EENT: PERRL/EOMI, other - intubated Neck: non-tender Cardiovascular: irregularly irregular Respiratory/Chest: decreased breath sounds Abdomen: normal bowel sounds Extremities: swelling Edema: 2+ Arm (L), 2+ Arm (R), 2+ Leg (L), 2+ Leg (R), 2+ Pedal (L), 2+ Pedal ( R), 2+ Generalized Edema: moderate edema Neurologic: relay man II-XII grossly normal, alert Skin: rash - left leg with erythema Lymphatic: normal anterior cervical (L), normal anterior cervical (R), normal axillary (L), normal axillary (R), normal inguinal (L), normal inguinal (R), normal other, normal posterior cervical (L), normal posterior cervical (R), normal submandibular (L), normal submandibular (R), normal supraclavicular (L), normal supraclavicular (R) Manny Nolan MD Apr 12, 2016 19:37
[2016-04-13] VITALS (24 sets, daily range): BP systolic 90–156; BP diastolic 42–99
[2016-04-13] MEDS: Aztreonam Inj 0.5 GM in D5W 55 ML IVPB SCH ×3 (05:46→22:18)
[2016-04-13] MEDS: NovoLOG Insulin Flexpen SUBQ SCH ×3 (05:47→18:28)
[2016-04-13 05:57] LABS: BASOPHILS % (AUTO) 1.2 % (0.0-2.0); EOSINOPHILS % (AUTO) 4.1 % (0.0-3.0); LYMPHOCYTES % (AUTO) 19.1 % (20.0-45.0); MEAN CORPUSCULAR HEMOGLOBIN 27.6 PG (27.0-31.0); MEAN CORPUSCULAR HGB CONC 30.5 G/DL (32.0-36.0); MEAN CORPUSCULAR VOLUME 91 FL (80-99); MEAN PLATELET VOLUME 7.5 FL (6.5-10.1); MONOCYTES % (AUTO) 10.1 % (1.0-10.0); NEUTROPHILS % (AUTO) 65.6 % (45.0-75.0); PLATELET COUNT 123 K/UL (150-450); RED BLOOD COUNT 2.95 M/UL (4.20-5.40); RED CELL DISTRIBUTION WIDTH 16.5 % (11.6-14.8); WHITE BLOOD COUNT 5.1 K/UL (4.8-10.8)
[2016-04-13 06:14] LABS: ALANINE AMINOTRANSFERASE 8 U/L (3-33); ALBUMIN/GLOBULIN RATIO 0.8 (1.0-2.7); ANION GAP 10 (5-15); ASPARTATE AMINO TRANSFERASE 13 U/L (5-40); CALCIUM 8.2 mg/dL (8.6-10.2); CARBON DIOXIDE 40 mEQ/L (20-30); CHLORIDE 97 mEQ/L (98-107); CREATININE 1.5 mg/dL (0.5-0.9); HEMOLYSIS 1; MAGNESIUM 1.4 mg/dL (1.7-2.5); PHOSPHORUS 2.6 mg/dL (2.5-4.8); POTASSIUM 3.6 mEQ/L (3.4-4.9); SODIUM 147 mEQ/L (135-145)
[2016-04-13] MEDS: Vitamin D 1000 IU Tab GT SCH (09:28)
[2016-04-13] MEDS: Calcium Carbonate 650mg Tab NG SCH ×3 (09:29→18:23)
[2016-04-13] MEDS: Digoxin Elixir 0.125mg NG SCH (09:29)
[2016-04-13] MEDS: Pantoprazole Inj IV SCH (09:29)
[2016-04-13] MEDS: Heparin 5000 units/ml inj SUBQ SCH ×2 (09:30→21:00)
[2016-04-13 10:05] LABS: ABG ALLEN TEST POSITIVE; ABG BASE EXCESS 20.2; ABG PCO2 72.4 mmHg (35.0-45.0)
[2016-04-13] MEDS: Morphine Sulfate 4mg/ml Inj IVP PRN ×2 (10:12→19:55)
--- NOTE | 2016-04-13 11:01 | Pulmonolgy Critical Care Note ---
Critical Care - Asmt/Plan Problems: (1) Acute respiratory failure with hypoxia and hypercarbia (2) COPD exacerbation (3) Pneumonia (4) Atrial fibrillation with RVR (5) Morbid obesity Respiratory: monitor respiratory rate, adjust FIO2, CXR, other - PS for 30 minutes if tolerates will extubate. Cardiac: continue to monitor HR/BP Renal: F/U I&O, check electrolytes Infectious Disease: check cultures, continue antibiotics Gastrointestinal: continue feedings/current rate Endocrine: monitor blood sugar Hematologic: monitor H/H Neurologic: PRN Morphine Prophylaxis: Protonix, Heparin Disposition: keep in ICU Notes Reviewed: business support associate, renal 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: nurses, consultants, foster care case managerdelicatessen manager - Objective Last 24 Hour Vital Signs Date Time Temp Pulse Resp B/P Pulse Ox O2 Delivery O2 Flow Rate FiO2 04/13/16 10:30 95 25 40 04/13/16 09:50 97 04/13/16 09:29 64 04/13/16 08:45 63 17 40 04/13/16 07:24 58 16 40 04/13/16 07:00 60 16 128/54 100 Mechanical Ventilator 40 04/13/16 06:00 68 16 131/58 100 Mechanical Ventilator 40 04/13/16 05:46 65 120/89 04/13/16 05:10 63 16 40 04/13/16 05:00 64 12 118/89 100 Mechanical Ventilator 40 04/13/16 04:00 97.4 62 16 120/58 100 Mechanical Ventilator 40 04/13/16 04:00 40 04/13/16 04:00 70 04/13/16 03:30 58 16 40 04/13/16 03:00 62 17 113/85 100 Mechanical Ventilator 40 04/13/16 02:00 55 15 117/69 100 Mechanical Ventilator 40 04/13/16 01:07 67 16 40 04/13/16 01:00 63 16 126/54 100 Mechanical Ventilator 40 04/13/16 00:00 97.4 68 17 104/67 100 Mechanical Ventilator 40 04/13/16 00:00 68 04/13/16 00:00 40 04/12/16 23:11 70 16 40 04/12/16 23:00 70 15 131/109 99 Mechanical Ventilator 40 04/12/16 22:00 68 15 114/48 97 Mechanical Ventilator 40 04/12/16 21:32 65 121/53 04/12/16 21:00 69 15 221/53 99 Mechanical Ventilator 40 04/12/16 20:38 72 16 40 04/12/16 20:00 68 04/12/16 20:00 40 04/12/16 20:00 68 17 107/70 99 Mechanical Ventilator 40 04/12/16 19:29 63 16 40 04/12/16 19:00 61 17 106/65 100 Mechanical Ventilator 40 04/12/16 18:00 60 17 121/57 99 Mechanical Ventilator 40 04/12/16 17:18 63 20 40 04/12/16 17:00 57 20 105/41 99 Mechanical Ventilator 40 04/12/16 16:00 96.2 60 10 115/54 100 Mechanical Ventilator 40 04/12/16 16:00 60 04/12/16 16:00 40 04/12/16 15:27 65 20 40 04/12/16 15:00 62 17 121/51 98 Mechanical Ventilator 40 04/12/16 14:28 64 120/65 04/12/16 14:00 60 14 120/65 99 Mechanical Ventilator 40 04/12/16 13:20 63 20 40 04/12/16 13:00 64 17 117/76 98 Mechanical Ventilator 40 04/12/16 12:03 98.3 57 20 108/41 99 Mechanical Ventilator 40 04/12/16 11:55 52 04/12/16 11:55 40 04/12/16 11:28 65 20 40 04/12/16 11:00 53 20 118/46 100 Mechanical Ventilator 40 Status: awake Condition: critical, improving HEENT: atraumatic Neck: full ROM Lungs: clear Heart: HR/BP stable, HR/BP unstable Abdomen: soft, non-tender Extremities: no C/C/E, edema Accucheck: 108 Critical Care - Subjective ROS Limited/Unobtainable: No ICU Day: 7 Intubation Day: 7 Condition: critical EKG Rhythm: Sinus Rhythm FI02: 40 Vent Support Breath Rate: 16 Vent Support Mode: CPAP Vent Tidal Volume: 500 Sputum Amount: Small PEEP: 5.0 PIP: 15 Drips: lasix drip Tube Feeding Amount: 35 I&O: Intake and Output 04/12/16 04/13/16 19:00 07:00 Intake Total 825 ml 730 ml Output Total 3450 ml 2390 ml Balance -2625 ml -1660 ml Free Water 100 ml IV Total 215 ml 310 ml Tube Feeding 420 ml 420 ml Other 90 ml Output Urine Total 3450 ml 2390 ml # Bowel Movements 1 CXR: slightly better ET-Tube: 7.0 ET Position: 21 Labs: Laboratory Tests Test 04/13/16 04:00 04/13/16 05:00 Arterial Blood pH 7.434 (7.350-7.450) Arterial Blood Partial Pressure CO2 72.4 mmHg (35.0-45.0) *H Arterial Blood Partial Pressure O2 197.9 mmHg (75.0-100.0) H Arterial Blood HCO3 47.4 mmol/L (22.0-26.0) H Arterial Blood Oxygen Saturation 99.5 % (92.0-98.0) H Arterial Blood Base Excess 20.2 Mike Test Positive White Blood Count 5.1 K/UL (4.8-10.8) Red Blood Count 2.95 M/UL (4.20-5.40) L Hemoglobin 8.1 G/DL (12.0-16.0) L Hematocrit 26.7 % (37.0-47.0) L Mean Corpuscular Volume 91 FL (80-99) Mean Corpuscular Hemoglobin 27.6 PG (27.0-31.0) Mean Corpuscular Hemoglobin Concent 30.5 G/DL (32.0-36.0) L Red Cell Distribution Width 16.5 % (11.6-14.8) H Platelet Count 123 K/UL (150-450) L Mean Platelet Volume 7.5 FL (6.5-10.1) Neutrophils (%) (Auto) 65.6 % (45.0-75.0) Lymphocytes (%) (Auto) 19.1 % (20.0-45.0) L Monocytes (%) (Auto) 10.1 % (1.0-10.0) H Eosinophils (%) (Auto) 4.1 % (0.0-3.0) H Basophils (%) (Auto) 1.2 % (0.0-2.0) Sodium Level 147 mEQ/L (135-145) H Potassium Level 3.6 mEQ/L (3.4-4.9) Chloride Level 97 mEQ/L (98-107) L Carbon Dioxide Level 40 mEQ/L (20-30) H Anion Gap 10 (5-15) Blood Urea Nitrogen 45 mg/dL (7-23) H Creatinine 1.5 mg/dL (0.5-0.9) H Estimat Glomerular Filtration Rate mL/min (>60) Glucose Level 144 mg/dL (74-106) H Calcium Level 8.2 mg/dL (8.6-10.2) L Phosphorus Level 2.6 mg/dL (2.5-4.8) Magnesium Level 1.4 mg/dL (1.7-2.5) L Total Bilirubin 0.5 mg/dL (0.0-1.2) Aspartate Amino Transf (AST/SGOT) 13 U/L (5-40) Alanine Aminotransferase (ALT/SGPT) 8 U/L (3-33) Alkaline Phosphatase 55 U/L (35-104) Total Protein 6.0 g/dL (6.6-8.7) L Albumin 2.8 g/dL (3.5-5.2) L Globulin 3.2 g/dL Albumin/Globulin Ratio 0.8 (1.0-2.7) L ARASH MIRANDA Apr 13, 2016 11:01
--- NOTE | 2016-04-13 11:24 | Diagnostic Imaging Report ---
Indication: DYSPNEA Technique: One view of the chest Comparison: 04/12/2016 Findings: The heart is enlarged. Left hemidiaphragm remains largely obscured, may be due to pleural fluid, retrocardiac consolidation, or obscuration by abundant overlying soft tissue. Mild generalized congestive changes persist, probably unchanged Impression: Unchanged, over one day, findings as above.
--- NOTE | 2016-04-13 11:32 | Infectious Diseases Prog Note ---
Assessment/Plan Assessment/Plan A: The patient is a 75-year-old female with Leukocytosis , SP Sepsis, improving Pneumonia SCX: NL Fl LLExt Cellulitis improving UCx :Neg VDRF Obesity CHF HTN COPD GERD. DM PLAN: Cont on Levaquin, vancomycin, and Azactam d# 8 / Monitor CBC Monitor BMP. Monitor renal function. Monitor CBC. Monitor chest x-ray. Vent support Subjective Constitutional: Denies: anorexia, chills, drenching sweats, fatigue, fever, no symptoms, other Allergies: Coded Allergies: AMOXICILLIN (Verified Allergy, Mild, RASH, 12/25/09) PENICILLINS (Unverified Allergy, Unknown, 04/06/16) Subjective on vent Objective Vital Signs Last 24 Hour Vital Signs Date Time Temp Pulse Resp B/P Pulse Ox O2 Delivery O2 Flow Rate FiO2 04/13/16 10:30 95 25 40 04/13/16 10:00 40 04/13/16 09:50 97 04/13/16 09:29 64 04/13/16 08:45 63 17 40 04/13/16 08:00 40 04/13/16 07:24 58 16 40 04/13/16 07:00 60 16 128/54 100 Mechanical Ventilator 40 04/13/16 06:00 68 16 131/58 100 Mechanical Ventilator 40 04/13/16 05:46 65 120/89 04/13/16 05:10 63 16 40 04/13/16 05:00 64 12 118/89 100 Mechanical Ventilator 40 04/13/16 04:00 97.4 62 16 120/58 100 Mechanical Ventilator 40 04/13/16 04:00 40 04/13/16 04:00 70 04/13/16 03:30 58 16 40 04/13/16 03:00 62 17 113/85 100 Mechanical Ventilator 40 04/13/16 02:00 55 15 117/69 100 Mechanical Ventilator 40 04/13/16 01:07 67 16 40 04/13/16 01:00 63 16 126/54 100 Mechanical Ventilator 40 04/13/16 00:00 97.4 68 17 104/67 100 Mechanical Ventilator 40 04/13/16 00:00 68 04/13/16 00:00 40 04/12/16 23:11 70 16 40 04/12/16 23:00 70 15 131/109 99 Mechanical Ventilator 40 04/12/16 22:00 68 15 114/48 97 Mechanical Ventilator 40 04/12/16 21:32 65 121/53 04/12/16 21:00 69 15 221/53 99 Mechanical Ventilator 40 04/12/16 20:38 72 16 40 04/12/16 20:00 68 04/12/16 20:00 40 04/12/16 20:00 68 17 107/70 99 Mechanical Ventilator 40 04/12/16 19:29 63 16 40 04/12/16 19:00 61 17 106/65 100 Mechanical Ventilator 40 04/12/16 18:00 60 17 121/57 99 Mechanical Ventilator 40 04/12/16 17:18 63 20 40 04/12/16 17:00 57 20 105/41 99 Mechanical Ventilator 40 04/12/16 16:00 96.2 60 10 115/54 100 Mechanical Ventilator 40 04/12/16 16:00 60 04/12/16 16:00 40 04/12/16 15:27 65 20 40 04/12/16 15:00 62 17 121/51 98 Mechanical Ventilator 40 04/12/16 14:28 64 120/65 04/12/16 14:00 60 14 120/65 99 Mechanical Ventilator 40 04/12/16 13:20 63 20 40 04/12/16 13:00 64 17 117/76 98 Mechanical Ventilator 40 04/12/16 12:03 98.3 57 20 108/41 99 Mechanical Ventilator 40 04/12/16 11:55 52 04/12/16 11:55 40 Height (Feet): 5 Height (Inches): 8.00 Weight (Pounds): 350 HEENT: anicteric Respiratory/Chest: lungs clear Cardiovascular: regular rhythm Abdomen: no organomegaly Skin: no rash Laboratory Tests Test 04/13/16 04:00 04/13/16 05:00 Arterial Blood pH 7.434 (7.350-7.450) Arterial Blood Partial Pressure CO2 72.4 mmHg (35.0-45.0) *H Arterial Blood Partial Pressure O2 197.9 mmHg (75.0-100.0) H Arterial Blood HCO3 47.4 mmol/L (22.0-26.0) H Arterial Blood Oxygen Saturation 99.5 % (92.0-98.0) H Arterial Blood Base Excess 20.2 Mike Test Positive White Blood Count 5.1 K/UL (4.8-10.8) Red Blood Count 2.95 M/UL (4.20-5.40) L Hemoglobin 8.1 G/DL (12.0-16.0) L Hematocrit 26.7 % (37.0-47.0) L Mean Corpuscular Volume 91 FL (80-99) Mean Corpuscular Hemoglobin 27.6 PG (27.0-31.0) Mean Corpuscular Hemoglobin Concent 30.5 G/DL (32.0-36.0) L Red Cell Distribution Width 16.5 % (11.6-14.8) H Platelet Count 123 K/UL (150-450) L Mean Platelet Volume 7.5 FL (6.5-10.1) Neutrophils (%) (Auto) 65.6 % (45.0-75.0) Lymphocytes (%) (Auto) 19.1 % (20.0-45.0) L Monocytes (%) (Auto) 10.1 % (1.0-10.0) H Eosinophils (%) (Auto) 4.1 % (0.0-3.0) H Basophils (%) (Auto) 1.2 % (0.0-2.0) Sodium Level 147 mEQ/L (135-145) H Potassium Level 3.6 mEQ/L (3.4-4.9) Chloride Level 97 mEQ/L (98-107) L Carbon Dioxide Level 40 mEQ/L (20-30) H Anion Gap 10 (5-15) Blood Urea Nitrogen 45 mg/dL (7-23) H Creatinine 1.5 mg/dL (0.5-0.9) H Estimat Glomerular Filtration Rate mL/min (>60) Glucose Level 144 mg/dL (74-106) H Calcium Level 8.2 mg/dL (8.6-10.2) L Phosphorus Level 2.6 mg/dL (2.5-4.8) Magnesium Level 1.4 mg/dL (1.7-2.5) L Total Bilirubin 0.5 mg/dL (0.0-1.2) Aspartate Amino Transf (AST/SGOT) 13 U/L (5-40) Alanine Aminotransferase (ALT/SGPT) 8 U/L (3-33) Alkaline Phosphatase 55 U/L (35-104) Total Protein 6.0 g/dL (6.6-8.7) L Albumin 2.8 g/dL (3.5-5.2) L Globulin 3.2 g/dL Albumin/Globulin Ratio 0.8 (1.0-2.7) L Current Medications Medications (Trade) Dose Ordered Sig/Kalyn Route PRN Reason Start Time Stop Time Status Last Admin Dose Admin Acetaminophen 650 mg 650 mg Q4H PRN RECTAL FEVER>100.5 04/06/16 10:52 05/06/16 10:29 Albuterol/ Ipratropium (DuoNeb 0.5-3(2.5)mg/3ml) 3 ml Q4H PRN HHN Shortness of Breath 04/10/16 14:30 04/15/16 23:59 Aztreonam 0.5 gm/ Dextrose 55 ml @ 110 mls/hr Q8HR IVPB 04/06/16 22:00 04/17/16 21:59 04/13/16 05:46 Calcium Carbonate (Calcium Carbonate) 650 mg THREE TIMES A DAY NG 04/08/16 13:00 05/08/16 12:59 04/13/16 09:29 Dextrose (Dextrose 50%) STAT PRN IV Hypoglycemia 04/06/16 10:30 05/06/16 10:29 Digoxin (Lanoxin) 0.125 mg DAILY NG 04/08/16 09:00 05/08/16 08:59 04/13/16 09:29 Diltiazem HCl (Cardizem) 30 mg EVERY 8 HOURS NG 04/08/16 15:13 05/07/16 14:59 04/13/16 05:46 Furosemide/ Dextrose (Lasix/D5W) 100 ml @ 10 mls/hr Q10H IV 04/09/16 21:30 05/09/16 21:29 04/13/16 05:45 Heparin Sodium (Porcine) (Heparin 5000 units/ml) 5,000 units EVERY 12 HOURS SUBQ 04/06/16 21:00 05/06/16 20:59 04/13/16 09:30 Insulin Aspart EVERY 6 HOURS SUBQ 04/09/16 18:00 05/09/16 17:59 04/12/16 23:43 Levofloxacin (Levaquin) 50 ml @ 50 mls/hr Q24H IVPB 04/07/16 15:00 3/8/17 14:59 04/12/16 14:28 Lorazepam (Ativan 2mg/ml 1ml) 0.5 mg Q4H PRN IV For Anxiety 04/11/16 14:30 04/18/16 14:29 04/12/16 00:49 Magnesium Sulfate (Magnesium Sulfate 1gm/100ml) 100 ml @ 100 mls/hr Q1H IVPB 04/13/16 11:45 04/13/16 15:44 Morphine Sulfate 4 mg 4 mg Q4H PRN IVP For Pain 04/11/16 14:30 04/18/16 14:29 04/13/16 10:12 Ondansetron HCl (Zofran) 4 mg Q6H PRN IVP Nausea & Vomiting 04/06/16 10:30 05/06/16 10:29 04/13/16 10:28 Pantoprazole (Protonix) 40 mg DAILY IV 04/06/16 10:30 05/06/16 10:29 04/13/16 09:29 Polyethylene Glycol (Miralax) 17 gm DAILYPRN PRN GT Constipation 04/08/16 15:13 05/06/16 10:59 Vancomycin HCl (Vanco rx to dose) 1 ea DAILY PRN MISC Per rx protocol 04/06/16 11:00 05/06/16 10:59 Vitamin D (Vitamin D) 5,000 intlu DAILY GT 04/08/16 13:00 05/08/16 12:59 04/13/16 09:28 LINDSEY HILL M.D. Apr 13, 2016 11:32
--- NOTE | 2016-04-13 11:44 | General Progress Note ---
Assessment/Plan Status: unchanged Assessment/Plan status: Acute renal failure- Acute Respiratory Failure Anemia Morbid Obesity CHF ? Sepsis Plan: Stop IV fluid Calcium supplements with Vit D on board- Optimize cardiac and pulmonary status- Avoid Nephrotoxics- monitor renal parameters Urine studies- Keep BP over 100 syst Antibiotics Subjective ROS Limited/Unobtainable: Yes Allergies: Coded Allergies: AMOXICILLIN (Verified Allergy, Mild, RASH, 12/25/09) PENICILLINS (Unverified Allergy, Unknown, 04/06/16) Objective Last 24 Hour Vital Signs Date Time Temp Pulse Resp B/P Pulse Ox O2 Delivery O2 Flow Rate FiO2 04/13/16 10:30 95 25 40 04/13/16 10:00 40 04/13/16 09:50 97 04/13/16 09:29 64 04/13/16 08:45 63 17 40 04/13/16 08:00 40 04/13/16 07:24 58 16 40 04/13/16 07:00 60 16 128/54 100 Mechanical Ventilator 40 04/13/16 06:00 68 16 131/58 100 Mechanical Ventilator 40 04/13/16 05:46 65 120/89 04/13/16 05:10 63 16 40 04/13/16 05:00 64 12 118/89 100 Mechanical Ventilator 40 04/13/16 04:00 97.4 62 16 120/58 100 Mechanical Ventilator 40 04/13/16 04:00 40 04/13/16 04:00 70 04/13/16 03:30 58 16 40 04/13/16 03:00 62 17 113/85 100 Mechanical Ventilator 40 04/13/16 02:00 55 15 117/69 100 Mechanical Ventilator 40 04/13/16 01:07 67 16 40 04/13/16 01:00 63 16 126/54 100 Mechanical Ventilator 40 04/13/16 00:00 97.4 68 17 104/67 100 Mechanical Ventilator 40 04/13/16 00:00 68 04/13/16 00:00 40 04/12/16 23:11 70 16 40 04/12/16 23:00 70 15 131/109 99 Mechanical Ventilator 40 04/12/16 22:00 68 15 114/48 97 Mechanical Ventilator 40 04/12/16 21:32 65 121/53 04/12/16 21:00 69 15 221/53 99 Mechanical Ventilator 40 04/12/16 20:38 72 16 40 04/12/16 20:00 68 04/12/16 20:00 40 04/12/16 20:00 68 17 107/70 99 Mechanical Ventilator 40 04/12/16 19:29 63 16 40 04/12/16 19:00 61 17 106/65 100 Mechanical Ventilator 40 04/12/16 18:00 60 17 121/57 99 Mechanical Ventilator 40 04/12/16 17:18 63 20 40 04/12/16 17:00 57 20 105/41 99 Mechanical Ventilator 40 04/12/16 16:00 96.2 60 10 115/54 100 Mechanical Ventilator 40 04/12/16 16:00 60 04/12/16 16:00 40 04/12/16 15:27 65 20 40 04/12/16 15:00 62 17 121/51 98 Mechanical Ventilator 40 04/12/16 14:28 64 120/65 04/12/16 14:00 60 14 120/65 99 Mechanical Ventilator 40 04/12/16 13:20 63 20 40 04/12/16 13:00 64 17 117/76 98 Mechanical Ventilator 40 04/12/16 12:03 98.3 57 20 108/41 99 Mechanical Ventilator 40 04/12/16 11:55 52 04/12/16 11:55 40 Intake and Output 04/12/16 04/13/16 18:59 06:59 Intake Total 875 ml 730 ml Output Total 3000 ml 2760 ml Balance -2125 ml -2030 ml Free Water 150 ml IV Total 215 ml 310 ml Tube Feeding 420 ml 420 ml Other 90 ml Output Urine Total 3000 ml 2760 ml # Voids 100 # Bowel Movements 1 Laboratory Tests 04/13/16 04:00: Arterial Blood pH 7.434, Arterial Blood Partial Pressure CO2 72.4*H, Arterial Blood Partial Pressure O2 197.9H, Arterial Blood HCO3 47.4H, Arterial Blood Oxygen Saturation 99.5H, Arterial Blood Base Excess 20.2, Mike Test Positive 04/13/16 05:00: White Blood Count 5.1, Red Blood Count 2.95L, Hemoglobin 8.1L, Hematocrit 26.7L , Mean Corpuscular Volume 91, Mean Corpuscular Hemoglobin 27.6, Mean Corpuscular Hemoglobin Concent 30.5L, Red Cell Distribution Width 16.5H, Platelet Count 123L, Mean Platelet Volume 7.5, Neutrophils (%) (Auto) 65.6, Lymphocytes (%) (Auto) 19.1L, Monocytes (%) (Auto) 10.1H, Eosinophils (%) (Auto ) 4.1H, Basophils (%) (Auto) 1.2, Sodium Level 147H, Potassium Level 3.6, Chloride Level 97L, Carbon Dioxide Level 40H, Anion Gap 10, Blood Urea Nitrogen 45H, Creatinine 1.5H, Estimat Glomerular Filtration Rate , Glucose Level 144H, Calcium Level 8.2L, Phosphorus Level 2.6, Magnesium Level 1.4L, Total Bilirubin 0.5, Aspartate Amino Transf (AST/SGOT) 13, Alanine Aminotransferase (ALT/SGPT) 8 , Alkaline Phosphatase 55, Total Protein 6.0L, Albumin 2.8L, Globulin 3.2, Albumin/Globulin Ratio 0.8L Height (Feet): 5 Height (Inches): 8.00 Weight (Pounds): 350 General Appearance: mild distress, agitated EENT: other - intubated Cardiovascular: regular rhythm Respiratory/Chest: decreased breath sounds Abdomen: soft Objective other PE not changed COURTNEY LOPEZ Apr 13, 2016 11:44
[2016-04-13 12:23] LABS: ABG ALLEN TEST POSITIVE
[2016-04-13 12:26] LABS: ABG BASE EXCESS 19.3
[2016-04-13] MEDS: LORazepam Inj 2mg/ml 1ml IV PRN (12:44)
--- NOTE | 2016-04-13 13:07 | Wound Care Consultation ---
Wound Assessment Wound Assessment #1: Wound Number: #1 Wound Present on Admission: Yes New Wound: No Status Change of Wound: No Wound Location Body Site Modif: left, lower, lateral Wound Location Body Site: leg Wound Type: traumatic injury Joya Test: Does not Joya Edema Degree: 4+ marked deep indentation Traumatic Injury Wounds: Skin Tear Wound Thickness: Partial Thickness Wound Length: 1.0 Wound Width: 1.0 Wound Depth: 0.1 Percent of Wound [place]/Red: 100 Wound Drainage Description: Serous, Serosanguineous Wound Drainage Amount: Scant Wound Drainage Odor: None/Absent Tissue Surrounding Wound: Edematous Wound General Appearance: Reddened Wound Assessment #2: Wound Number: #2 Wound Present on Admission: Yes New Wound: No Status Change of Wound: No Wound Location Body Site Modif: left Wound Location Body Site: breast fold Wound Type: rash - intertrigo rash Joya Test: Does not Joya Wound Thickness: Partial Thickness Wound Length: 1.0 Wound Width: 6.0 Wound Depth: 0.1 Percent of Wound [place]/Red: 100 Wound Drainage Description: Serosanguineous Wound Drainage Amount: Scant Wound Drainage Odor: None/Absent Tissue Surrounding Wound: Macerated Wound General Appearance: Reddened, Open to air Wound Comment #1 Left lower lateral leg skin tear. #2 Left breast fold intertrigo rash. Recommendation. -Local wound care as ordered. -Left breast fold rash - cleanse with soap and water, keep site clean and dry.open to air. -Turn and reposition. - LEFT LOWER LEG SKIN TEAR- CLEANSE WITH NORMAL SALINE, PAT DRY , APPLY ADAPTIC AND BORDERED GAUZE ORDERED DAILY. -Assess and notify MD for any change of condition in skin noted. -elevate offload lower extremities. upon reassessment noted left lower left lower leg skin tear still present,no further deterioration present. wound bed pink,noted both lower extremities with + 4 edema, both lower extremities elevated/ floated with pillows. KITA ORTIZ Apr 13, 2016 13:07
--- NOTE | 2016-04-13 15:54 | Cardiac Electrophysiology PN ---
Assessment/Plan Assessment/Plan 1. Respiratory failure, due to chronic obstructive pulmonary disease and volume overload in view of renal failure with BNP is 7700. On Vent. Echocardiogram showed ejection fraction of 55% to 60%. On Lasix drip at 10 mg/hr. Failed weaning again. 2. Atrial fibrillation, rapid ventricular response. Continue Dig 0.125 and Cardizem 30 mg three times a day 3. Lower extremity cellulitis, on IV antibiotics with vancomycin and aztreonam. 4. Morbid obesity. 5. 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 Got agitated with weaning. Atrial Fib rate stable on Digoxin and Cardizem. Objective Last 24 Hour Vital Signs Date Time Temp Pulse Resp B/P Pulse Ox O2 Delivery O2 Flow Rate FiO2 04/13/16 15:10 70 19 40 04/13/16 15:04 65 16 105/42 94 Mechanical Ventilator 40 04/13/16 14:05 62 16 102/50 99 Mechanical Ventilator 40 04/13/16 14:02 62 102/50 04/13/16 13:00 70 16 123/91 99 Mechanical Ventilator 40 04/13/16 12:30 72 19 40 04/13/16 12:05 40 04/13/16 12:00 99.8 83 21 156/99 96 Mechanical Ventilator 40 04/13/16 12:00 86 04/13/16 11:00 83 20 139/59 95 Mechanical Ventilator 40 04/13/16 10:30 95 25 40 04/13/16 10:00 84 20 142/57 95 Mechanical Ventilator 40 04/13/16 10:00 40 04/13/16 09:50 97 04/13/16 09:29 64 04/13/16 09:00 67 16 120/51 100 Mechanical Ventilator 40 04/13/16 08:45 63 17 40 04/13/16 08:00 40 04/13/16 08:00 98.3 62 16 136/68 99 Mechanical Ventilator 40 04/13/16 08:00 56 04/13/16 07:24 58 16 40 04/13/16 07:00 60 16 128/54 100 Mechanical Ventilator 40 04/13/16 06:00 68 16 131/58 100 Mechanical Ventilator 40 04/13/16 05:46 65 120/89 04/13/16 05:10 63 16 40 04/13/16 05:00 64 12 118/89 100 Mechanical Ventilator 40 04/13/16 04:00 97.4 62 16 120/58 100 Mechanical Ventilator 40 04/13/16 04:00 40 04/13/16 04:00 70 04/13/16 03:30 58 16 40 04/13/16 03:00 62 17 113/85 100 Mechanical Ventilator 40 04/13/16 02:00 55 15 117/69 100 Mechanical Ventilator 40 04/13/16 01:07 67 16 40 04/13/16 01:00 63 16 126/54 100 Mechanical Ventilator 40 04/13/16 00:00 97.4 68 17 104/67 100 Mechanical Ventilator 40 04/13/16 00:00 68 04/13/16 00:00 40 04/12/16 23:11 70 16 40 04/12/16 23:00 70 15 131/109 99 Mechanical Ventilator 40 04/12/16 22:00 68 15 114/48 97 Mechanical Ventilator 40 04/12/16 21:32 65 121/53 04/12/16 21:00 69 15 221/53 99 Mechanical Ventilator 40 04/12/16 20:38 72 16 40 04/12/16 20:00 68 04/12/16 20:00 40 04/12/16 20:00 68 17 107/70 99 Mechanical Ventilator 40 04/12/16 19:29 63 16 40 04/12/16 19:00 61 17 106/65 100 Mechanical Ventilator 40 04/12/16 18:00 60 17 121/57 99 Mechanical Ventilator 40 04/12/16 17:18 63 20 40 04/12/16 17:00 57 20 105/41 99 Mechanical Ventilator 40 04/12/16 16:00 96.2 60 10 115/54 100 Mechanical Ventilator 40 04/12/16 16:00 60 04/12/16 16:00 40 Intake and Output 04/12/16 04/13/16 19:00 07:00 Intake Total 825 ml 730 ml Output Total 3450 ml 2390 ml Balance -2625 ml -1660 ml Free Water 100 ml IV Total 215 ml 310 ml Tube Feeding 420 ml 420 ml Other 90 ml Output Urine Total 3450 ml 2390 ml # Bowel Movements 1 Laboratory Tests Test 04/13/16 04:00 04/13/16 05:00 04/13/16 11:56 Arterial Blood pH 7.434 (7.350-7.450) 7.330 (7.350-7.450) Arterial Blood Partial Pressure CO2 72.4 mmHg (35.0-45.0) *H 95.0 mmHg (35.0-45.0) *H Arterial Blood Partial Pressure O2 197.9 mmHg (75.0-100.0) H 93.2 mmHg (75.0-100.0) Arterial Blood HCO3 47.4 mmol/L (22.0-26.0) H 48.6 mmol/L (22.0-26.0) H Arterial Blood Oxygen Saturation 99.5 % (92.0-98.0) H 96.0 % (92.0-98.0) Arterial Blood Base Excess 20.2 19.3 Mike Test Positive Positive White Blood Count 5.1 K/UL (4.8-10.8) Red Blood Count 2.95 M/UL (4.20-5.40) L Hemoglobin 8.1 G/DL (12.0-16.0) L Hematocrit 26.7 % (37.0-47.0) L Mean Corpuscular Volume 91 FL (80-99) Mean Corpuscular Hemoglobin 27.6 PG (27.0-31.0) Mean Corpuscular Hemoglobin Concent 30.5 G/DL (32.0-36.0) L Red Cell Distribution Width 16.5 % (11.6-14.8) H Platelet Count 123 K/UL (150-450) L Mean Platelet Volume 7.5 FL (6.5-10.1) Neutrophils (%) (Auto) 65.6 % (45.0-75.0) Lymphocytes (%) (Auto) 19.1 % (20.0-45.0) L Monocytes (%) (Auto) 10.1 % (1.0-10.0) H Eosinophils (%) (Auto) 4.1 % (0.0-3.0) H Basophils (%) (Auto) 1.2 % (0.0-2.0) Sodium Level 147 mEQ/L (135-145) H Potassium Level 3.6 mEQ/L (3.4-4.9) Chloride Level 97 mEQ/L (98-107) L Carbon Dioxide Level 40 mEQ/L (20-30) H Anion Gap 10 (5-15) Blood Urea Nitrogen 45 mg/dL (7-23) H Creatinine 1.5 mg/dL (0.5-0.9) H Estimat Glomerular Filtration Rate mL/min (>60) Glucose Level 144 mg/dL (74-106) H Calcium Level 8.2 mg/dL (8.6-10.2) L Phosphorus Level 2.6 mg/dL (2.5-4.8) Magnesium Level 1.4 mg/dL (1.7-2.5) L Total Bilirubin 0.5 mg/dL (0.0-1.2) Aspartate Amino Transf (AST/SGOT) 13 U/L (5-40) Alanine Aminotransferase (ALT/SGPT) 8 U/L (3-33) Alkaline Phosphatase 55 U/L (35-104) Total Protein 6.0 g/dL (6.6-8.7) L Albumin 2.8 g/dL (3.5-5.2) L Globulin 3.2 g/dL Albumin/Globulin Ratio 0.8 (1.0-2.7) L Objective HEAD AND NECK: Orally intubated with OG tube. LUNGS: Coarse rhonchi bilaterally. CARDIOVASCULAR: Irregularly irregular S1 and S2 with no gallop or murmur. ABDOMEN: Morbidly obese. EXTREMITIES: 1+ pitting edema.Left leg cellulitis. JOHN NUÑEZ Apr 13, 2016 15:54
[2016-04-13] MEDS ORDERED: Tubing IV Secondary IV ONE (17:10)
[2016-04-13] MEDS ORDERED: NS 275ml ONE (17:10)
[2016-04-13] MEDS: Nystatin Powder 100,000 units/gm 15gm TOPIC SCH (18:28)
--- NOTE | 2016-04-13 20:34 | General Progress Note ---
Assessment/Plan Assessment/Plan Diagnosis 1. Acute hypoxemic and hypercapnic respiratory failure requiring intubation. 2. Acute kidney injury. 3. Morbid obesity. 4. Hypokalemia 5. Diabetes mellitus. 6. Congestive heart failure. 7. Chronic obstructive pulmonary disease exacerbation 8. Pulmonary hypertension. 9. severe edema/anasarca 10. Acute anemia 11. Acute diastolic heart failure 12. left lower extremity cellulitis 13. Pneumonia plan: -continue icu care -daily labs -vent support per Dr. Rene -cotinue iv vanco and aztreonam per Dr. Milan -nephrology input appreciated -cardiology input appreciated -type and cross match for one unit of PRBC -continue lasix drip 10 mg/hr, monitor bun/cr, I's and O's -continue weaning off vent per Dr. Rene discussed with Dr. Rene FULL code Subjective Date patient seen: Apr 13, 2016 Time patient seen: 20:31 Allergies: Coded Allergies: AMOXICILLIN (Verified Allergy, Mild, RASH, 12/25/09) PENICILLINS (Unverified Allergy, Unknown, 04/06/16) Subjective patient seen in ICU Objective Last 24 Hour Vital Signs Date Time Temp Pulse Resp B/P Pulse Ox O2 Delivery O2 Flow Rate FiO2 04/13/16 20:00 40 04/13/16 20:00 98.2 59 16 118/52 99 Mechanical Ventilator 40 04/13/16 19:13 57 18 40 04/13/16 19:00 59 14 111/45 99 Mechanical Ventilator 40 04/13/16 18:00 62 16 116/98 98 Mechanical Ventilator 40 04/13/16 17:10 66 18 40 04/13/16 17:00 64 14 115/48 99 Mechanical Ventilator 40 04/13/16 16:00 46 04/13/16 16:00 40 04/13/16 16:00 97.6 58 16 122/54 100 Mechanical Ventilator 40 04/13/16 15:10 70 19 40 04/13/16 15:04 65 16 105/42 94 Mechanical Ventilator 40 04/13/16 14:05 62 16 102/50 99 Mechanical Ventilator 40 04/13/16 14:02 62 102/50 04/13/16 13:00 70 16 123/91 99 Mechanical Ventilator 40 04/13/16 12:30 72 19 40 04/13/16 12:05 40 04/13/16 12:00 99.8 83 21 156/99 96 Mechanical Ventilator 40 04/13/16 12:00 86 04/13/16 11:00 83 20 139/59 95 Mechanical Ventilator 40 04/13/16 10:30 95 25 40 04/13/16 10:00 84 20 142/57 95 Mechanical Ventilator 40 04/13/16 10:00 40 04/13/16 09:50 97 04/13/16 09:29 64 04/13/16 09:00 67 16 120/51 100 Mechanical Ventilator 40 04/13/16 08:45 63 17 40 04/13/16 08:00 40 04/13/16 08:00 98.3 62 16 136/68 99 Mechanical Ventilator 40 04/13/16 08:00 56 04/13/16 07:24 58 16 40 04/13/16 07:00 60 16 128/54 100 Mechanical Ventilator 40 04/13/16 06:00 68 16 131/58 100 Mechanical Ventilator 40 04/13/16 05:46 65 120/89 04/13/16 05:10 63 16 40 04/13/16 05:00 64 12 118/89 100 Mechanical Ventilator 40 04/13/16 04:00 97.4 62 16 120/58 100 Mechanical Ventilator 40 04/13/16 04:00 40 04/13/16 04:00 70 04/13/16 03:30 58 16 40 04/13/16 03:00 62 17 113/85 100 Mechanical Ventilator 40 04/13/16 02:00 55 15 117/69 100 Mechanical Ventilator 40 04/13/16 01:07 67 16 40 04/13/16 01:00 63 16 126/54 100 Mechanical Ventilator 40 04/13/16 00:00 97.4 68 17 104/67 100 Mechanical Ventilator 40 04/13/16 00:00 68 04/13/16 00:00 40 04/12/16 23:11 70 16 40 04/12/16 23:00 70 15 131/109 99 Mechanical Ventilator 40 04/12/16 22:00 68 15 114/48 97 Mechanical Ventilator 40 04/12/16 21:32 65 121/53 04/12/16 21:00 69 15 221/53 99 Mechanical Ventilator 40 04/12/16 20:38 72 16 40 Intake and Output 04/12/16 04/13/16 19:00 07:00 Intake Total 825 ml 730 ml Output Total 3450 ml 2390 ml Balance -2625 ml -1660 ml Free Water 100 ml IV Total 215 ml 310 ml Tube Feeding 420 ml 420 ml Other 90 ml Output Urine Total 3450 ml 2390 ml # Bowel Movements 1 Laboratory Tests 04/13/16 04:00: Arterial Blood pH 7.434, Arterial Blood Partial Pressure CO2 72.4*H, Arterial Blood Partial Pressure O2 197.9H, Arterial Blood HCO3 47.4H, Arterial Blood Oxygen Saturation 99.5H, Arterial Blood Base Excess 20.2, Mike Test Positive 04/13/16 05:00: White Blood Count 5.1, Red Blood Count 2.95L, Hemoglobin 8.1L, Hematocrit 26.7L , Mean Corpuscular Volume 91, Mean Corpuscular Hemoglobin 27.6, Mean Corpuscular Hemoglobin Concent 30.5L, Red Cell Distribution Width 16.5H, Platelet Count 123L, Mean Platelet Volume 7.5, Neutrophils (%) (Auto) 65.6, Lymphocytes (%) (Auto) 19.1L, Monocytes (%) (Auto) 10.1H, Eosinophils (%) (Auto ) 4.1H, Basophils (%) (Auto) 1.2, Sodium Level 147H, Potassium Level 3.6, Chloride Level 97L, Carbon Dioxide Level 40H, Anion Gap 10, Blood Urea Nitrogen 45H, Creatinine 1.5H, Estimat Glomerular Filtration Rate , Glucose Level 144H, Calcium Level 8.2L, Phosphorus Level 2.6, Magnesium Level 1.4L, Total Bilirubin 0.5, Aspartate Amino Transf (AST/SGOT) 13, Alanine Aminotransferase (ALT/SGPT) 8 , Alkaline Phosphatase 55, Total Protein 6.0L, Albumin 2.8L, Globulin 3.2, Albumin/Globulin Ratio 0.8L 04/13/16 11:56: Arterial Blood pH 7.330L, Arterial Blood Partial Pressure CO2 95.0*H, Arterial Blood Partial Pressure O2 93.2, Arterial Blood HCO3 48.6H, Arterial Blood Oxygen Saturation 96.0, Arterial Blood Base Excess 19.3, Mike Test Positive Height (Feet): 5 Height (Inches): 8.00 Weight (Pounds): 350 General Appearance: alert, morbidly obese EENT: PERRL/EOMI Neck: non-tender Cardiovascular: irregularly irregular Respiratory/Chest: decreased breath sounds Abdomen: non tender Edema: 1+ Arm (L), 1+ Arm (R), 2+ Leg (L), 2+ Leg (R), 2+ Pedal (L), 2+ Pedal ( R), 2+ Generalized Edema: moderate edema 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
[2016-04-14] VITALS (24 sets, daily range): BP systolic 94–147; BP diastolic 47–85
[2016-04-14] MEDS: NovoLOG Insulin Flexpen SUBQ SCH ×4 (00:55→17:46)
[2016-04-14] MEDS: Aztreonam Inj 0.5 GM in D5W 55 ML IVPB SCH ×3 (05:58→21:30)
[2016-04-14 06:14] LABS: BASOPHILS % (AUTO) 0.6 % (0.0-2.0); EOSINOPHILS % (AUTO) 4.5 % (0.0-3.0); LYMPHOCYTES % (AUTO) 16.8 % (20.0-45.0); MEAN CORPUSCULAR HEMOGLOBIN 27.6 PG (27.0-31.0); MEAN CORPUSCULAR HGB CONC 30.4 G/DL (32.0-36.0); MEAN CORPUSCULAR VOLUME 91 FL (80-99); MEAN PLATELET VOLUME 6.4 FL (6.5-10.1); MONOCYTES % (AUTO) 7.7 % (1.0-10.0); NEUTROPHILS % (AUTO) 70.4 % (45.0-75.0); PLATELET COUNT 113 K/UL (150-450); RED BLOOD COUNT 2.91 M/UL (4.20-5.40); RED CELL DISTRIBUTION WIDTH 16.2 % (11.6-14.8)
[2016-04-14 06:47] LABS: ALANINE AMINOTRANSFERASE 9 U/L (3-33); ALBUMIN/GLOBULIN RATIO 0.9 (1.0-2.7); ASPARTATE AMINO TRANSFERASE 18 U/L (5-40); CALCIUM 8.3 mg/dL (8.6-10.2); CHLORIDE 98 mEQ/L (98-107); CREATININE 1.5 mg/dL (0.5-0.9); HEMOLYSIS 0; MAGNESIUM 1.9 mg/dL (1.7-2.5); PHOSPHORUS 2.5 mg/dL (2.5-4.8); POTASSIUM 3.5 mEQ/L (3.4-4.9); SODIUM 149 mEQ/L (135-145); TOTAL PROTEIN 6.1 g/dL (6.6-8.7)
[2016-04-14 06:54] LABS: ANION GAP 10 (5-15)
[2016-04-14 07:16] LABS: CARBON DIOXIDE 41 mEQ/L (20-30)
[2016-04-14] MEDS: Digoxin Elixir 0.125mg NG SCH (08:14)
[2016-04-14] MEDS: Vitamin D 1000 IU Tab GT SCH (08:14)
[2016-04-14] MEDS: Pantoprazole Inj IV SCH (08:15)
[2016-04-14] MEDS: Nystatin Powder 100,000 units/gm 15gm TOPIC SCH ×3 (08:15→18:27)
[2016-04-14] MEDS: Calcium Carbonate 650mg Tab NG SCH ×2 (08:16→18:27)
[2016-04-14] MEDS: Heparin 5000 units/ml inj SUBQ SCH ×2 (08:16→20:58)
[2016-04-14] MEDS: LORazepam Inj 2mg/ml 1ml IV PRN (08:28)
[2016-04-14 09:15] LABS: ABG ALLEN TEST POSITIVE; ABG BASE EXCESS 12.9; ABG PCO2 75.7 mmHg (35.0-45.0)
--- NOTE | 2016-04-14 11:02 | Pulmonolgy Critical Care Note ---
Critical Care - Asmt/Plan Problems: (1) Acute respiratory failure with hypoxia and hypercarbia (2) COPD exacerbation (3) Pneumonia (4) Atrial fibrillation with RVR (5) Morbid obesity Respiratory: monitor respiratory rate, adjust FIO2, CXR, other - will extubate and if not tolerated will put on BIPAP Cardiac: continue pressors, continue to monitor HR/BP Renal: F/U I&O, keep IV fluid Infectious Disease: check cultures Gastrointestinal: continue feedings/current rate Endocrine: monitor blood sugar, check HgA1C Neurologic: PRN Ativan Prophylaxis: Protonix Time Spent (Minutes): 40 Notes Reviewed: control system manager, renal 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: nurses, consultants, pillowcase folderoptical manager - Objective Last 24 Hour Vital Signs Date Time Temp Pulse Resp B/P Pulse Ox O2 Delivery O2 Flow Rate FiO2 04/14/16 09:47 40 04/14/16 09:06 97 04/14/16 09:06 79 25 40 04/14/16 08:14 75 04/14/16 07:12 70 12 40 04/14/16 06:00 78 18 140/66 100 Mechanical Ventilator 40 04/14/16 05:58 71 125/61 04/14/16 05:09 56 16 40 04/14/16 05:00 97.6 17 120/59 99 Mechanical Ventilator 40 04/14/16 04:00 40 04/14/16 04:00 55 16 94/49 99 Mechanical Ventilator 40 04/14/16 04:00 48 04/14/16 03:30 47 16 40 04/14/16 03:00 47 16 108/47 98 Mechanical Ventilator 40 04/14/16 02:00 59 16 114/52 99 Mechanical Ventilator 40 04/14/16 01:24 60 16 40 04/14/16 01:00 60 13 115/55 99 Mechanical Ventilator 40 04/14/16 00:58 40 04/14/16 00:00 98.5 64 14 112/50 98 Mechanical Ventilator 40 04/14/16 00:00 59 04/13/16 23:30 63 16 40 04/13/16 23:00 59 16 119/68 99 Mechanical Ventilator 40 04/13/16 22:00 59 90/51 04/13/16 22:00 63 14 90/51 98 Mechanical Ventilator 40 04/13/16 21:28 55 16 40 04/13/16 21:00 59 13 122/54 97 Mechanical Ventilator 40 04/13/16 20:00 62 04/13/16 20:00 40 04/13/16 20:00 98.2 59 16 118/52 99 Mechanical Ventilator 40 04/13/16 19:13 57 18 40 04/13/16 19:00 59 14 111/45 99 Mechanical Ventilator 40 04/13/16 18:00 62 16 116/98 98 Mechanical Ventilator 40 04/13/16 17:10 66 18 40 04/13/16 17:00 64 14 115/48 99 Mechanical Ventilator 40 04/13/16 16:00 46 04/13/16 16:00 40 04/13/16 16:00 97.6 58 16 122/54 100 Mechanical Ventilator 40 04/13/16 15:10 70 19 40 04/13/16 15:04 65 16 105/42 94 Mechanical Ventilator 40 04/13/16 14:05 62 16 102/50 99 Mechanical Ventilator 40 04/13/16 14:02 62 102/50 04/13/16 13:00 70 16 123/91 99 Mechanical Ventilator 40 04/13/16 12:30 72 19 40 04/13/16 12:05 40 04/13/16 12:00 99.8 83 21 156/99 96 Mechanical Ventilator 40 04/13/16 12:00 86 Status: awake Condition: critical, grave HEENT: atraumatic Neck: full ROM Lungs: clear Heart: HR/BP stable, HR/BP unstable Abdomen: soft, non-tender, active bowel sounds Extremities: no C/C/E, edema Accucheck: 110 Critical Care - Subjective ICU Day: 8 Intubation Day: 8 Condition: critical FI02: 40 Vent Support Breath Rate: 16 Vent Support Mode: AC Vent Tidal Volume: 500 Sputum Amount: Moderate PEEP: 5.0 PIP: 40 Tube Feeding Amount: 35 I&O: Intake and Output 04/13/16 04/14/16 19:00 07:00 Intake Total 1020 ml 840 ml Output Total 1850 ml 1045 ml Balance -830 ml -205 ml Free Water 150 ml 150 ml IV Total 430 ml 220 ml Tube Feeding 420 ml 385 ml Other 20 ml 85 ml Output Urine Total 1850 ml 1045 ml CXR: clear, ET in good position ET-Tube: 7.0 ET Position: 21 Labs: Laboratory Tests Test 04/13/16 11:56 04/14/16 04:00 04/14/16 09:05 Arterial Blood pH 7.330 (7.350-7.450) 7.349 (7.350-7.450) Arterial Blood Partial Pressure CO2 95.0 mmHg (35.0-45.0) *H 75.7 mmHg (35.0-45.0) *H Arterial Blood Partial Pressure O2 93.2 mmHg (75.0-100.0) 105.3 mmHg (75.0-100.0) H Arterial Blood HCO3 48.6 mmol/L (22.0-26.0) H 40.8 mmol/L (22.0-26.0) H Arterial Blood Oxygen Saturation 96.0 % (92.0-98.0) 97.1 % (92.0-98.0) Arterial Blood Base Excess 19.3 12.9 Mike Test Positive Positive White Blood Count 5.0 K/UL (4.8-10.8) Red Blood Count 2.91 M/UL (4.20-5.40) L Hemoglobin 8.0 G/DL (12.0-16.0) L Hematocrit 26.5 % (37.0-47.0) L Mean Corpuscular Volume 91 FL (80-99) Mean Corpuscular Hemoglobin 27.6 PG (27.0-31.0) Mean Corpuscular Hemoglobin Concent 30.4 G/DL (32.0-36.0) L Red Cell Distribution Width 16.2 % (11.6-14.8) H Platelet Count 113 K/UL (150-450) L Mean Platelet Volume 6.4 FL (6.5-10.1) L Neutrophils (%) (Auto) 70.4 % (45.0-75.0) Lymphocytes (%) (Auto) 16.8 % (20.0-45.0) L Monocytes (%) (Auto) 7.7 % (1.0-10.0) Eosinophils (%) (Auto) 4.5 % (0.0-3.0) H Basophils (%) (Auto) 0.6 % (0.0-2.0) Sodium Level 149 mEQ/L (135-145) H Potassium Level 3.5 mEQ/L (3.4-4.9) Chloride Level 98 mEQ/L (98-107) Carbon Dioxide Level 41 mEQ/L (20-30) *H Anion Gap 10 (5-15) Blood Urea Nitrogen 47 mg/dL (7-23) H Creatinine 1.5 mg/dL (0.5-0.9) H Estimat Glomerular Filtration Rate mL/min (>60) Glucose Level 124 mg/dL (74-106) H Calcium Level 8.3 mg/dL (8.6-10.2) L Phosphorus Level 2.5 mg/dL (2.5-4.8) Magnesium Level 1.9 mg/dL (1.7-2.5) Total Bilirubin 0.5 mg/dL (0.0-1.2) Aspartate Amino Transf (AST/SGOT) 18 U/L (5-40) Alanine Aminotransferase (ALT/SGPT) 9 U/L (3-33) Alkaline Phosphatase 71 U/L (35-104) Total Protein 6.1 g/dL (6.6-8.7) L Albumin 3.0 g/dL (3.5-5.2) L Globulin 3.1 g/dL Albumin/Globulin Ratio 0.9 (1.0-2.7) L Digoxin Level 1.0 ng/mL (0.5-2.0) ARASH MIRANDA Apr 14, 2016 11:02
[2016-04-14] MEDS: Artificial Tears 1.4% Op Soln BOTH EYES PRN (12:05)
--- NOTE | 2016-04-14 13:14 | General Progress Note ---
Assessment/Plan Status: unchanged Status Narrative Cr 1.5 stable Assessment/Plan status: Acute renal failure- Acute Respiratory Failure Anemia Morbid Obesity CHF ? Sepsis Plan: Stop IV fluid Calcium supplements with Vit D on board- Optimize cardiac and pulmonary status- Avoid Nephrotoxics- monitor renal parameters Urine studies- Keep BP over 100 syst Antibiotics Subjective ROS Limited/Unobtainable: Yes Allergies: Coded Allergies: AMOXICILLIN (Verified Allergy, Mild, RASH, 12/25/09) PENICILLINS (Unverified Allergy, Unknown, 04/06/16) Objective Last 24 Hour Vital Signs Date Time Temp Pulse Resp B/P Pulse Ox O2 Delivery O2 Flow Rate FiO2 04/14/16 12:00 40 04/14/16 11:29 76 17 40 04/14/16 09:47 40 04/14/16 09:06 97 04/14/16 09:06 79 25 40 04/14/16 08:14 75 04/14/16 08:00 40 04/14/16 08:00 73 04/14/16 07:12 70 12 40 04/14/16 06:00 78 18 140/66 100 Mechanical Ventilator 40 04/14/16 05:58 71 125/61 04/14/16 05:09 56 16 40 04/14/16 05:00 97.6 17 120/59 99 Mechanical Ventilator 40 04/14/16 04:00 40 04/14/16 04:00 55 16 94/49 99 Mechanical Ventilator 40 04/14/16 04:00 48 04/14/16 03:30 47 16 40 04/14/16 03:00 47 16 108/47 98 Mechanical Ventilator 40 04/14/16 02:00 59 16 114/52 99 Mechanical Ventilator 40 04/14/16 01:24 60 16 40 04/14/16 01:00 60 13 115/55 99 Mechanical Ventilator 40 04/14/16 00:58 40 04/14/16 00:00 98.5 64 14 112/50 98 Mechanical Ventilator 40 04/14/16 00:00 59 04/13/16 23:30 63 16 40 04/13/16 23:00 59 16 119/68 99 Mechanical Ventilator 40 04/13/16 22:00 59 90/51 04/13/16 22:00 63 14 90/51 98 Mechanical Ventilator 40 04/13/16 21:28 55 16 40 04/13/16 21:00 59 13 122/54 97 Mechanical Ventilator 40 04/13/16 20:00 62 04/13/16 20:00 40 04/13/16 20:00 98.2 59 16 118/52 99 Mechanical Ventilator 40 04/13/16 19:13 57 18 40 04/13/16 19:00 59 14 111/45 99 Mechanical Ventilator 40 04/13/16 18:00 62 16 116/98 98 Mechanical Ventilator 40 04/13/16 17:10 66 18 40 04/13/16 17:00 64 14 115/48 99 Mechanical Ventilator 40 04/13/16 16:00 46 04/13/16 16:00 40 04/13/16 16:00 97.6 58 16 122/54 100 Mechanical Ventilator 40 04/13/16 15:10 70 19 40 04/13/16 15:04 65 16 105/42 94 Mechanical Ventilator 40 04/13/16 14:05 62 16 102/50 99 Mechanical Ventilator 40 04/13/16 14:02 62 102/50 Intake and Output 04/13/16 04/14/16 19:00 07:00 Intake Total 1020 ml 850 ml Output Total 1850 ml 1045 ml Balance -830 ml -195 ml Free Water 150 ml 150 ml IV Total 430 ml 230 ml Tube Feeding 420 ml 385 ml Other 20 ml 85 ml Output Urine Total 1850 ml 1045 ml Laboratory Tests 04/14/16 04:00: White Blood Count 5.0, Red Blood Count 2.91L, Hemoglobin 8.0L, Hematocrit 26.5L , Mean Corpuscular Volume 91, Mean Corpuscular Hemoglobin 27.6, Mean Corpuscular Hemoglobin Concent 30.4L, Red Cell Distribution Width 16.2H, Platelet Count 113L, Mean Platelet Volume 6.4L, Neutrophils (%) (Auto) 70.4, Lymphocytes (%) (Auto) 16.8L, Monocytes (%) (Auto) 7.7, Eosinophils (%) (Auto) 4.5H, Basophils (%) (Auto) 0.6, Sodium Level 149H, Potassium Level 3.5, Chloride Level 98, Carbon Dioxide Level 41*H, Anion Gap 10, Blood Urea Nitrogen 47H, Creatinine 1.5H, Estimat Glomerular Filtration Rate , Glucose Level 124H, Calcium Level 8.3L, Phosphorus Level 2.5, Magnesium Level 1.9, Total Bilirubin 0.5, Aspartate Amino Transf (AST/SGOT) 18, Alanine Aminotransferase (ALT/SGPT) 9 , Alkaline Phosphatase 71, Total Protein 6.1L, Albumin 3.0L, Globulin 3.1, Albumin/Globulin Ratio 0.9L, Digoxin Level 1.0 04/14/16 09:05: Arterial Blood pH 7.349L, Arterial Blood Partial Pressure CO2 75.7*H, Arterial Blood Partial Pressure O2 105.3H, Arterial Blood HCO3 40.8H, Arterial Blood Oxygen Saturation 97.1, Arterial Blood Base Excess 12.9, Mike Test Positive Height (Feet): 5 Height (Inches): 8.00 Weight (Pounds): 350 General Appearance: no apparent distress Cardiovascular: normal rate Respiratory/Chest: decreased breath sounds Objective other PE not changed COURTNEY LOPEZ 8, 2017 13:14
--- NOTE | 2016-04-14 15:51 | Diagnostic Imaging Report ---
Indication: Dyspnea Comparison: 04/13/16 A single view chest radiograph was obtained. Findings: Hilar congestion, cardiomegaly and suggestion of interstitial edema noted. Tubes and lines are stable and satisfactory. Impression: CHF. No significant change
--- NOTE | 2016-04-14 16:52 | Cardiac Electrophysiology PN ---
Assessment/Plan Assessment/Plan 1. S/P Respiratory failure, due to chronic obstructive pulmonary disease and volume overload. Extubated today on BIPAP. Echocardiogram showed ejection fraction of 55% to 60%.Still On Lasix drip at 10 mg/hr. 2. Atrial fibrillation, rapid ventricular response. Continue Dig 0.125 and Cardizem 30 mg three times a day 3. Lower extremity cellulitis, on IV antibiotics with vancomycin and aztreonam. 4. Morbid obesity. 5. CKD creatinine 1.5 DW RN Subjective Subjective In ICU was just extubated, alert and responsive. Atrial Fib rate stable on Digoxin and Cardizem. Objective Last 24 Hour Vital Signs Date Time Temp Pulse Resp B/P Pulse Ox O2 Delivery O2 Flow Rate FiO2 04/14/16 16:00 97.8 64 22 144/62 96 Bi-pap 40 04/14/16 15:00 73 20 98 Facial 40 04/14/16 15:00 67 16 132/52 100 Mechanical Ventilator 40 04/14/16 14:50 Bi-pap 40 04/14/16 14:45 40 04/14/16 14:00 65 16 144/62 100 Mechanical Ventilator 40 04/14/16 14:00 54 114/46 04/14/16 13:11 60 17 40 04/14/16 13:00 57 16 108/50 100 Mechanical Ventilator 40 04/14/16 12:00 97.6 60 16 136/66 100 Mechanical Ventilator 40 04/14/16 12:00 63 04/14/16 12:00 40 04/14/16 11:29 76 17 40 04/14/16 11:00 66 16 125/48 100 Mechanical Ventilator 40 04/14/16 10:00 65 16 145/60 100 Mechanical Ventilator 40 04/14/16 09:47 40 04/14/16 09:06 97 04/14/16 09:06 79 25 40 04/14/16 09:00 76 17 145/69 100 Mechanical Ventilator 40 04/14/16 08:14 75 04/14/16 08:00 40 04/14/16 08:00 73 04/14/16 08:00 97.4 77 16 147/75 100 Mechanical Ventilator 40 04/14/16 07:12 70 12 40 04/14/16 07:00 75 16 145/60 100 Mechanical Ventilator 40 04/14/16 06:00 78 18 140/66 100 Mechanical Ventilator 40 04/14/16 05:58 71 125/61 04/14/16 05:09 56 16 40 04/14/16 05:00 97.6 17 120/59 99 Mechanical Ventilator 40 04/14/16 04:00 40 04/14/16 04:00 55 16 94/49 99 Mechanical Ventilator 40 04/14/16 04:00 48 04/14/16 03:30 47 16 40 04/14/16 03:00 47 16 108/47 98 Mechanical Ventilator 40 04/14/16 02:00 59 16 114/52 99 Mechanical Ventilator 40 04/14/16 01:24 60 16 40 04/14/16 01:00 60 13 115/55 99 Mechanical Ventilator 40 04/14/16 00:58 40 04/14/16 00:00 98.5 64 14 112/50 98 Mechanical Ventilator 40 04/14/16 00:00 59 04/13/16 23:30 63 16 40 04/13/16 23:00 59 16 119/68 99 Mechanical Ventilator 40 04/13/16 22:00 59 90/51 04/13/16 22:00 63 14 90/51 98 Mechanical Ventilator 40 04/13/16 21:28 55 16 40 04/13/16 21:00 59 13 122/54 97 Mechanical Ventilator 40 04/13/16 20:00 62 04/13/16 20:00 40 04/13/16 20:00 98.2 59 16 118/52 99 Mechanical Ventilator 40 04/13/16 19:13 57 18 40 04/13/16 19:00 59 14 111/45 99 Mechanical Ventilator 40 04/13/16 18:00 62 16 116/98 98 Mechanical Ventilator 40 04/13/16 17:10 66 18 40 04/13/16 17:00 64 14 115/48 99 Mechanical Ventilator 40 Intake and Output 04/13/16 04/14/16 19:00 07:00 Intake Total 1020 ml 885 ml Output Total 1850 ml 1165 ml Balance -830 ml -280 ml Free Water 150 ml 150 ml IV Total 430 ml 230 ml Tube Feeding 420 ml 420 ml Other 20 ml 85 ml Output Urine Total 1850 ml 1165 ml Laboratory Tests Test 04/14/16 04:00 04/14/16 09:05 White Blood Count 5.0 K/UL (4.8-10.8) Red Blood Count 2.91 M/UL (4.20-5.40) L Hemoglobin 8.0 G/DL (12.0-16.0) L Hematocrit 26.5 % (37.0-47.0) L Mean Corpuscular Volume 91 FL (80-99) Mean Corpuscular Hemoglobin 27.6 PG (27.0-31.0) Mean Corpuscular Hemoglobin Concent 30.4 G/DL (32.0-36.0) L Red Cell Distribution Width 16.2 % (11.6-14.8) H Platelet Count 113 K/UL (150-450) L Mean Platelet Volume 6.4 FL (6.5-10.1) L Neutrophils (%) (Auto) 70.4 % (45.0-75.0) Lymphocytes (%) (Auto) 16.8 % (20.0-45.0) L Monocytes (%) (Auto) 7.7 % (1.0-10.0) Eosinophils (%) (Auto) 4.5 % (0.0-3.0) H Basophils (%) (Auto) 0.6 % (0.0-2.0) Sodium Level 149 mEQ/L (135-145) H Potassium Level 3.5 mEQ/L (3.4-4.9) Chloride Level 98 mEQ/L (98-107) Carbon Dioxide Level 41 mEQ/L (20-30) *H Anion Gap 10 (5-15) Blood Urea Nitrogen 47 mg/dL (7-23) H Creatinine 1.5 mg/dL (0.5-0.9) H Estimat Glomerular Filtration Rate mL/min (>60) Glucose Level 124 mg/dL (74-106) H Calcium Level 8.3 mg/dL (8.6-10.2) L Phosphorus Level 2.5 mg/dL (2.5-4.8) Magnesium Level 1.9 mg/dL (1.7-2.5) Total Bilirubin 0.5 mg/dL (0.0-1.2) Aspartate Amino Transf (AST/SGOT) 18 U/L (5-40) Alanine Aminotransferase (ALT/SGPT) 9 U/L (3-33) Alkaline Phosphatase 71 U/L (35-104) Total Protein 6.1 g/dL (6.6-8.7) L Albumin 3.0 g/dL (3.5-5.2) L Globulin 3.1 g/dL Albumin/Globulin Ratio 0.9 (1.0-2.7) L Digoxin Level 1.0 ng/mL (0.5-2.0) Arterial Blood pH 7.349 (7.350-7.450) Arterial Blood Partial Pressure CO2 75.7 mmHg (35.0-45.0) *H Arterial Blood Partial Pressure O2 105.3 mmHg (75.0-100.0) H Arterial Blood HCO3 40.8 mmol/L (22.0-26.0) H Arterial Blood Oxygen Saturation 97.1 % (92.0-98.0) Arterial Blood Base Excess 12.9 Mike Test Positive Objective HEAD AND NECK: No JVD LUNGS: Coarse rhonchi bilaterally. CARDIOVASCULAR: Irregularly irregular S1 and S2 with no gallop or murmur. ABDOMEN: Morbidly obese. EXTREMITIES: 1+ pitting edema.Left leg cellulitis. JOHN NUÑEZ Apr 14, 2016 16:52
--- NOTE | 2016-04-14 18:24 | Infectious Diseases Prog Note ---
Assessment/Plan Assessment/Plan A: The patient is a 75-year-old female with Leukocytosis , SP Sepsis, improving Pneumonia SCX: NL Fl LLExt Cellulitis improving UCx :Neg VDRF Obesity CHF HTN COPD GERD. DM PLAN: Cont on Levaquin, vancomycin, and Azactam d# 9 /10 Monitor CBC Monitor BMP. Monitor renal function. Monitor CBC. Monitor chest x-ray. Vent support Subjective Allergies: Coded Allergies: AMOXICILLIN (Verified Allergy, Mild, RASH, 12/25/09) PENICILLINS (Unverified Allergy, Unknown, 04/06/16) Subjective on BiPAP Objective Vital Signs Last 24 Hour Vital Signs Date Time Temp Pulse Resp B/P Pulse Ox O2 Delivery O2 Flow Rate FiO2 04/14/16 18:00 65 20 147/60 98 Bi-pap 40 04/14/16 17:00 69 16 99 Facial 40 04/14/16 17:00 71 10 138/59 98 Bi-pap 40 04/14/16 16:00 97.8 64 22 144/62 96 Bi-pap 40 04/14/16 15:00 73 20 98 Facial 40 04/14/16 15:00 67 16 132/52 100 Mechanical Ventilator 40 04/14/16 14:50 Bi-pap 40 04/14/16 14:45 40 04/14/16 14:00 65 16 144/62 100 Mechanical Ventilator 40 04/14/16 14:00 54 114/46 04/14/16 13:11 60 17 40 04/14/16 13:00 57 16 108/50 100 Mechanical Ventilator 40 04/14/16 12:00 97.6 60 16 136/66 100 Mechanical Ventilator 40 04/14/16 12:00 63 04/14/16 12:00 40 04/14/16 11:29 76 17 40 04/14/16 11:00 66 16 125/48 100 Mechanical Ventilator 40 04/14/16 10:00 65 16 145/60 100 Mechanical Ventilator 40 04/14/16 09:47 40 04/14/16 09:06 97 04/14/16 09:06 79 25 40 04/14/16 09:00 76 17 145/69 100 Mechanical Ventilator 40 04/14/16 08:14 75 04/14/16 08:00 40 04/14/16 08:00 73 04/14/16 08:00 97.4 77 16 147/75 100 Mechanical Ventilator 40 04/14/16 07:12 70 12 40 04/14/16 07:00 75 16 145/60 100 Mechanical Ventilator 40 04/14/16 06:00 78 18 140/66 100 Mechanical Ventilator 40 04/14/16 05:58 71 125/61 04/14/16 05:09 56 16 40 04/14/16 05:00 97.6 17 120/59 99 Mechanical Ventilator 40 04/14/16 04:00 40 04/14/16 04:00 55 16 94/49 99 Mechanical Ventilator 40 04/14/16 04:00 48 04/14/16 03:30 47 16 40 04/14/16 03:00 47 16 108/47 98 Mechanical Ventilator 40 04/14/16 02:00 59 16 114/52 99 Mechanical Ventilator 40 04/14/16 01:24 60 16 40 04/14/16 01:00 60 13 115/55 99 Mechanical Ventilator 40 04/14/16 00:58 40 04/14/16 00:00 98.5 64 14 112/50 98 Mechanical Ventilator 40 04/14/16 00:00 59 04/13/16 23:30 63 16 40 04/13/16 23:00 59 16 119/68 99 Mechanical Ventilator 40 04/13/16 22:00 59 90/51 04/13/16 22:00 63 14 90/51 98 Mechanical Ventilator 40 04/13/16 21:28 55 16 40 04/13/16 21:00 59 13 122/54 97 Mechanical Ventilator 40 04/13/16 20:00 62 04/13/16 20:00 40 04/13/16 20:00 98.2 59 16 118/52 99 Mechanical Ventilator 40 04/13/16 19:13 57 18 40 04/13/16 19:00 59 14 111/45 99 Mechanical Ventilator 40 Height (Feet): 5 Height (Inches): 8.00 Weight (Pounds): 350 HEENT: anicteric Respiratory/Chest: lungs clear Cardiovascular: regular rhythm Abdomen: no organomegaly Laboratory Tests Test 04/14/16 04:00 04/14/16 09:05 White Blood Count 5.0 K/UL (4.8-10.8) Red Blood Count 2.91 M/UL (4.20-5.40) L Hemoglobin 8.0 G/DL (12.0-16.0) L Hematocrit 26.5 % (37.0-47.0) L Mean Corpuscular Volume 91 FL (80-99) Mean Corpuscular Hemoglobin 27.6 PG (27.0-31.0) Mean Corpuscular Hemoglobin Concent 30.4 G/DL (32.0-36.0) L Red Cell Distribution Width 16.2 % (11.6-14.8) H Platelet Count 113 K/UL (150-450) L Mean Platelet Volume 6.4 FL (6.5-10.1) L Neutrophils (%) (Auto) 70.4 % (45.0-75.0) Lymphocytes (%) (Auto) 16.8 % (20.0-45.0) L Monocytes (%) (Auto) 7.7 % (1.0-10.0) Eosinophils (%) (Auto) 4.5 % (0.0-3.0) H Basophils (%) (Auto) 0.6 % (0.0-2.0) Sodium Level 149 mEQ/L (135-145) H Potassium Level 3.5 mEQ/L (3.4-4.9) Chloride Level 98 mEQ/L (98-107) Carbon Dioxide Level 41 mEQ/L (20-30) *H Anion Gap 10 (5-15) Blood Urea Nitrogen 47 mg/dL (7-23) H Creatinine 1.5 mg/dL (0.5-0.9) H Estimat Glomerular Filtration Rate mL/min (>60) Glucose Level 124 mg/dL (74-106) H Calcium Level 8.3 mg/dL (8.6-10.2) L Phosphorus Level 2.5 mg/dL (2.5-4.8) Magnesium Level 1.9 mg/dL (1.7-2.5) Total Bilirubin 0.5 mg/dL (0.0-1.2) Aspartate Amino Transf (AST/SGOT) 18 U/L (5-40) Alanine Aminotransferase (ALT/SGPT) 9 U/L (3-33) Alkaline Phosphatase 71 U/L (35-104) Total Protein 6.1 g/dL (6.6-8.7) L Albumin 3.0 g/dL (3.5-5.2) L Globulin 3.1 g/dL Albumin/Globulin Ratio 0.9 (1.0-2.7) L Digoxin Level 1.0 ng/mL (0.5-2.0) Arterial Blood pH 7.349 (7.350-7.450) Arterial Blood Partial Pressure CO2 75.7 mmHg (35.0-45.0) *H Arterial Blood Partial Pressure O2 105.3 mmHg (75.0-100.0) H Arterial Blood HCO3 40.8 mmol/L (22.0-26.0) H Arterial Blood Oxygen Saturation 97.1 % (92.0-98.0) Arterial Blood Base Excess 12.9 Mike Test Positive Current Medications Medications (Trade) Dose Ordered Sig/Kalyn Route PRN Reason Start Time Stop Time Status Last Admin Dose Admin Acetaminophen (Tylenol) 650 mg Q4H PRN NG Fever/Headache/Mild Pain 04/14/16 18:30 05/14/16 18:29 Albuterol/ Ipratropium (DuoNeb 0.5-3(2.5)mg/3ml) 3 ml Q4H PRN HHN Shortness of Breath 04/10/16 14:30 04/15/16 23:59 Artificial Tears (Akwa-Tears) 2 drop Q2H PRN BOTH EYES Dry Eyes 04/14/16 09:00 05/14/16 08:59 04/14/16 12:05 Aztreonam/Dextrose (Azactam/D5W) 55 ml @ 110 mls/hr Q8HR IVPB 04/06/16 22:00 04/17/16 21:59 04/14/16 14:13 Calcium Carbonate (Calcium Carbonate) 1,300 mg THREE TIMES A DAY NG 04/14/16 18:00 05/14/16 17:59 Dextrose (Dextrose 50%) STAT PRN IV Hypoglycemia 04/06/16 10:30 05/06/16 10:29 Digoxin (Lanoxin) 0.125 mg DAILY NG 04/08/16 09:00 05/08/16 08:59 04/14/16 08:14 Diltiazem HCl (Cardizem) 30 mg EVERY 8 HOURS NG 04/08/16 15:13 05/07/16 14:59 04/14/16 05:58 Furosemide/ Dextrose (Lasix/D5W) 100 ml @ 10 mls/hr Q10H IV 04/09/16 21:30 4/2/17 21:29 04/14/16 12:00 Heparin Sodium (Porcine) (Heparin 5000 units/ml) 5,000 units EVERY 12 HOURS SUBQ 04/06/16 21:00 05/06/16 20:59 04/13/16 09:30 Insulin Aspart EVERY 6 HOURS SUBQ 04/09/16 18:00 05/09/16 17:59 04/14/16 12:01 Lorazepam (Ativan 2mg/ml 1ml) 0.5 mg Q4H PRN IV For Anxiety 04/11/16 14:30 04/18/16 14:29 04/14/16 08:28 Morphine Sulfate (Morphine Sulfate) 4 mg Q4H PRN IVP For Pain 04/11/16 14:30 04/18/16 14:29 04/13/16 19:55 Nystatin (Nystop Powder) 1 applic THREE TIMES A DAY TOPIC 04/13/16 18:00 05/13/16 17:59 04/14/16 13:00 Ondansetron HCl (Zofran) 4 mg Q6H PRN IVP Nausea & Vomiting 04/06/16 10:30 05/06/16 10:29 04/13/16 10:28 Pantoprazole (Protonix) 40 mg DAILY IV 04/06/16 10:30 05/06/16 10:29 04/14/16 08:15 Polyethylene Glycol (Miralax) 17 gm DAILYPRN PRN GT Constipation 04/08/16 15:13 05/06/16 10:59 Vancomycin HCl 1 ea 1 ea DAILY PRN MISC Per rx protocol 04/06/16 11:00 05/06/16 10:59 Vitamin D (Vitamin D) 5,000 intlu DAILY GT 04/08/16 13:00 05/08/16 12:59 04/14/16 08:14 LINDSEY HILL M.D. Apr 14, 2016 18:24
[2016-04-14] MEDS: Acetaminophen 650mg/20.3ml NG PRN (18:27)
--- NOTE | 2016-04-14 22:54 | General Progress Note ---
Assessment/Plan Assessment/Plan Diagnosis 1. Acute hypoxemic and hypercapnic respiratory failure requiring intubation. 2. Acute kidney injury. 3. Morbid obesity. 4. Hypokalemia 5. Diabetes mellitus. 6. Congestive heart failure. 7. Chronic obstructive pulmonary disease exacerbation 8. Pulmonary hypertension. 9. severe edema/anasarca 10. Acute anemia 11. Acute diastolic heart failure 12. left lower extremity cellulitis 13. Pneumonia 14. s/p extubation on 04/14/16 now on BiPap plan: -continue icu care -daily labs -Biapap per Dr. Rene -cotinjeancarlos iv vanco and aztreonam per Dr. Milan -nephrology input appreciated -cardiology input appreciated -type and cross match for one unit of PRBC -continue lasix drip 10 mg/hr, monitor bun/cr, I's and O's -consider pt/ot out of bed to cardiac chair discussed with Nurse FULL code Subjective Date patient seen: Apr 14, 2016 Time patient seen: 22:51 Allergies: Coded Allergies: AMOXICILLIN (Verified Allergy, Mild, RASH, 12/25/09) PENICILLINS (Unverified Allergy, Unknown, 04/06/16) Subjective patient seen in ICU Objective Last 24 Hour Vital Signs Date Time Temp Pulse Resp B/P Pulse Ox O2 Delivery O2 Flow Rate FiO2 04/14/16 22:00 63 22 128/85 100 Bi-pap 40 04/14/16 21:30 62 126/67 04/14/16 21:00 69 17 126/67 100 Bi-pap 40 04/14/16 20:41 69 19 99 Facial 40 04/14/16 20:00 40 04/14/16 20:00 98.0 63 21 140/73 99 Bi-pap 40 04/14/16 20:00 63 04/14/16 19:00 67 18 131/68 100 Bi-pap 40 04/14/16 18:58 70 18 98 40 04/14/16 18:57 97.8 04/14/16 18:00 65 20 147/60 98 Bi-pap 40 04/14/16 17:00 69 16 99 Facial 40 04/14/16 17:00 71 10 138/59 98 Bi-pap 40 04/14/16 16:00 65 04/14/16 16:00 97.8 64 22 144/62 96 Bi-pap 40 04/14/16 16:00 40 04/14/16 15:00 73 20 98 Facial 40 04/14/16 15:00 67 16 132/52 100 Mechanical Ventilator 40 04/14/16 14:50 Bi-pap 40 04/14/16 14:45 40 04/14/16 14:00 65 16 144/62 100 Mechanical Ventilator 40 04/14/16 14:00 54 114/46 04/14/16 13:11 60 17 40 04/14/16 13:00 57 16 108/50 100 Mechanical Ventilator 40 04/14/16 12:00 97.6 60 16 136/66 100 Mechanical Ventilator 40 04/14/16 12:00 63 04/14/16 12:00 40 04/14/16 11:29 76 17 40 04/14/16 11:00 66 16 125/48 100 Mechanical Ventilator 40 04/14/16 10:00 65 16 145/60 100 Mechanical Ventilator 40 04/14/16 09:47 40 04/14/16 09:06 97 04/14/16 09:06 79 25 40 04/14/16 09:00 76 17 145/69 100 Mechanical Ventilator 40 04/14/16 08:14 75 04/14/16 08:00 40 04/14/16 08:00 73 04/14/16 08:00 97.4 77 16 147/75 100 Mechanical Ventilator 40 04/14/16 07:12 70 12 40 04/14/16 07:00 75 16 145/60 100 Mechanical Ventilator 40 04/14/16 06:00 78 18 140/66 100 Mechanical Ventilator 40 04/14/16 05:58 71 125/61 04/14/16 05:09 56 16 40 04/14/16 05:00 97.6 17 120/59 99 Mechanical Ventilator 40 04/14/16 04:00 40 04/14/16 04:00 55 16 94/49 99 Mechanical Ventilator 40 04/14/16 04:00 48 04/14/16 03:30 47 16 40 04/14/16 03:00 47 16 108/47 98 Mechanical Ventilator 40 04/14/16 02:00 59 16 114/52 99 Mechanical Ventilator 40 04/14/16 01:24 60 16 40 04/14/16 01:00 60 13 115/55 99 Mechanical Ventilator 40 04/14/16 00:58 40 04/14/16 00:00 98.5 64 14 112/50 98 Mechanical Ventilator 40 04/14/16 00:00 59 04/13/16 23:30 63 16 40 04/13/16 23:00 59 16 119/68 99 Mechanical Ventilator 40 Intake and Output 04/13/16 04/14/16 19:00 07:00 Intake Total 1020 ml 885 ml Output Total 1850 ml 1165 ml Balance -830 ml -280 ml Free Water 150 ml 150 ml IV Total 430 ml 230 ml Tube Feeding 420 ml 420 ml Other 20 ml 85 ml Output Urine Total 1850 ml 1165 ml Laboratory Tests 04/14/16 04:00: White Blood Count 5.0, Red Blood Count 2.91L, Hemoglobin 8.0L, Hematocrit 26.5L , Mean Corpuscular Volume 91, Mean Corpuscular Hemoglobin 27.6, Mean Corpuscular Hemoglobin Concent 30.4L, Red Cell Distribution Width 16.2H, Platelet Count 113L, Mean Platelet Volume 6.4L, Neutrophils (%) (Auto) 70.4, Lymphocytes (%) (Auto) 16.8L, Monocytes (%) (Auto) 7.7, Eosinophils (%) (Auto) 4.5H, Basophils (%) (Auto) 0.6, Sodium Level 149H, Potassium Level 3.5, Chloride Level 98, Carbon Dioxide Level 41*H, Anion Gap 10, Blood Urea Nitrogen 47H, Creatinine 1.5H, Estimat Glomerular Filtration Rate , Glucose Level 124H, Calcium Level 8.3L, Phosphorus Level 2.5, Magnesium Level 1.9, Total Bilirubin 0.5, Aspartate Amino Transf (AST/SGOT) 18, Alanine Aminotransferase (ALT/SGPT) 9 , Alkaline Phosphatase 71, Total Protein 6.1L, Albumin 3.0L, Globulin 3.1, Albumin/Globulin Ratio 0.9L, Digoxin Level 1.0 04/14/16 09:05: Arterial Blood pH 7.349L, Arterial Blood Partial Pressure CO2 75.7*H, Arterial Blood Partial Pressure O2 105.3H, Arterial Blood HCO3 40.8H, Arterial Blood Oxygen Saturation 97.1, Arterial Blood Base Excess 12.9, Mike Test Positive Height (Feet): 5 Height (Inches): 8.00 Weight (Pounds): 350 General Appearance: morbidly obese EENT: PERRL/EOMI Neck: normal alignment Cardiovascular: irregularly irregular Respiratory/Chest: lungs clear Abdomen: normal bowel sounds, non tender Extremities: normal range of motion, swelling Edema: 1+ Arm (L), 1+ Arm (R), 2+ Leg (L), 2+ Leg (R), 2+ Pedal (L), 2+ Pedal ( R), 2+ Generalized Edema: moderate edema 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
[2016-04-15] VITALS (24 sets, daily range): BP systolic 104–148; BP diastolic 40–85
[2016-04-15] MEDS: NovoLOG Insulin Flexpen SUBQ SCH ×4 (00:28→17:58)
[2016-04-15] MEDS: Morphine Sulfate 4mg/ml Inj IVP PRN (03:27)
[2016-04-15] MEDS: Aztreonam Inj 0.5 GM in D5W 55 ML IVPB SCH ×3 (06:02→22:23)
[2016-04-15 06:20] LABS: BASOPHILS % (AUTO) 1.1 % (0.0-2.0); EOSINOPHILS % (AUTO) 4.4 % (0.0-3.0); LYMPHOCYTES % (AUTO) 15.6 % (20.0-45.0); MEAN CORPUSCULAR HEMOGLOBIN 27.5 PG (27.0-31.0); MEAN CORPUSCULAR HGB CONC 29.9 G/DL (32.0-36.0); MEAN CORPUSCULAR VOLUME 92 FL (80-99); MEAN PLATELET VOLUME 6.8 FL (6.5-10.1); MONOCYTES % (AUTO) 9.3 % (1.0-10.0); NEUTROPHILS % (AUTO) 69.6 % (45.0-75.0); PLATELET COUNT 131 K/UL (150-450); RED CELL DISTRIBUTION WIDTH 16.7 % (11.6-14.8)
[2016-04-15 06:38] LABS: ALANINE AMINOTRANSFERASE 8 U/L (3-33); ALBUMIN/GLOBULIN RATIO 0.9 (1.0-2.7); ANION GAP 10 (5-15); ASPARTATE AMINO TRANSFERASE 17 U/L (5-40); CALCIUM 8.4 mg/dL (8.6-10.2); CHLORIDE 96 mEQ/L (98-107); CREATININE 1.4 mg/dL (0.5-0.9); HEMOLYSIS 3; MAGNESIUM 1.8 mg/dL (1.7-2.5); PHOSPHORUS 3.2 mg/dL (2.5-4.8); POTASSIUM 3.3 mEQ/L (3.4-4.9); SODIUM 148 mEQ/L (135-145); TOTAL PROTEIN 6.6 g/dL (6.6-8.7)
[2016-04-15 06:41] LABS: CARBON DIOXIDE 42 mEQ/L (20-30)
[2016-04-15 07:35] LABS: ABG BASE EXCESS 20.1; ABG PCO2 85.1 mmHg (35.0-45.0)
[2016-04-15 07:36] LABS: ABG ALLEN TEST POSITIVE
[2016-04-15] MEDS: Nystatin Powder 100,000 units/gm 15gm TOPIC SCH ×3 (09:22→17:59)
[2016-04-15] MEDS: Calcium Carbonate 650mg Tab NG SCH ×3 (09:23→17:59)
[2016-04-15] MEDS: Pantoprazole Inj IV SCH (09:23)
[2016-04-15] MEDS: Digoxin Elixir 0.125mg NG SCH (09:23)
[2016-04-15] MEDS: Vitamin D 1000 IU Tab GT SCH (09:24)
[2016-04-15] MEDS: Artificial Tears 1.4% Op Soln BOTH EYES PRN (09:26)
[2016-04-15] MEDS: Heparin 5000 units/ml inj SUBQ SCH ×2 (09:29→20:54)
[2016-04-15] MEDS ORDERED: KCl 10% 40mEq/30ml liquid NG ONE (11:00)
--- NOTE | 2016-04-15 11:33 | Pulmonolgy Critical Care Note ---
Critical Care - Asmt/Plan Problems: (1) Acute respiratory failure with hypoxia and hypercarbia (2) COPD exacerbation (3) Pneumonia (4) Atrial fibrillation with RVR (5) Morbid obesity Respiratory: monitor respiratory rate, adjust FIO2, other - titrate bipap Cardiac: continue to monitor HR/BP Renal: F/U I&O, check electrolytes Infectious Disease: check cultures, continue antibiotics Gastrointestinal: continue feedings/current rate Endocrine: monitor blood sugar, check HgA1C, continue sliding scale insulin Hematologic: monitor H/H, transfuse if hgb<8.5 Neurologic: PRN Ativan, keep patient comfortable Prophylaxis: Protonix, Heparin Notes Reviewed: manager credit risk, cardio, renal 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: nurses, consultants, case supervisorintegrated marketing manager - Objective Last 24 Hour Vital Signs Date Time Temp Pulse Resp B/P Pulse Ox O2 Delivery O2 Flow Rate FiO2 04/15/16 10:36 63 22 100 Facial 30 04/15/16 09:23 75 04/15/16 08:55 66 20 97 Facial 40 04/15/16 08:00 40 04/15/16 07:18 64 20 93 Facial 40 04/15/16 07:00 62 17 137/70 97 Mechanical Ventilator 40 04/15/16 06:00 60 20 130/46 94 Bi-pap 40 60 04/15/16 06:00 60 135/46 04/15/16 05:06 64 17 99 Facial 40 04/15/16 05:00 62 20 130/77 99 Bi-pap 40 64 04/15/16 04:00 40 04/15/16 04:00 98.0 65 20 125/60 98 Bi-pap 40 66 04/15/16 04:00 62 04/15/16 03:05 70 16 99 Facial 40 04/15/16 03:04 68 20 122/84 98 Bi-pap 40 04/15/16 02:00 62 22 127/42 99 Bi-pap 40 04/15/16 01:13 62 15 99 Facial 40 04/15/16 01:00 63 18 104/42 98 Bi-pap 40 04/15/16 00:00 40 04/15/16 00:00 98.5 63 19 115/45 99 Bi-pap 40 04/15/16 00:00 63 04/14/16 23:27 62 16 99 Facial 40 04/14/16 23:00 60 17 127/49 98 Bi-pap 40 04/14/16 22:00 63 22 128/85 100 Bi-pap 40 04/14/16 21:30 62 126/67 04/14/16 21:00 69 17 126/67 100 Bi-pap 40 04/14/16 20:41 69 19 99 Facial 40 04/14/16 20:00 40 04/14/16 20:00 98.0 63 21 140/73 99 Bi-pap 40 04/14/16 20:00 63 04/14/16 19:00 67 18 131/68 100 Bi-pap 40 04/14/16 18:58 70 18 98 40 04/14/16 18:57 97.8 04/14/16 18:00 65 20 147/60 98 Bi-pap 40 04/14/16 17:00 69 16 99 Facial 40 04/14/16 17:00 71 10 138/59 98 Bi-pap 40 04/14/16 16:00 65 04/14/16 16:00 97.8 64 22 144/62 96 Bi-pap 40 04/14/16 16:00 40 04/14/16 15:00 73 20 98 Facial 40 04/14/16 15:00 67 16 132/52 100 Mechanical Ventilator 40 04/14/16 14:50 Bi-pap 40 04/14/16 14:45 40 04/14/16 14:00 65 16 144/62 100 Mechanical Ventilator 40 04/14/16 14:00 54 114/46 04/14/16 13:11 60 17 40 04/14/16 13:00 57 16 108/50 100 Mechanical Ventilator 40 04/14/16 12:00 97.6 60 16 136/66 100 Mechanical Ventilator 40 04/14/16 12:00 63 04/14/16 12:00 40 04/14/16 11:29 76 17 40 Status: awake Condition: critical HEENT: atraumatic Lungs: clear, chest wall tender Heart: HR/BP stable, HR/BP unstable Abdomen: soft, non-tender Extremities: no C/C/E, edema Decubiti: location Accucheck: 120 Critical Care - Subjective ICU Day: 9 Intubation Day: extubated yesterday, on bipap now Condition: critical FI02: 30 Vent Support Breath Rate: 16 Vent Support Mode: BiLevel Vent Tidal Volume: 500 Sputum Amount: None PEEP: 5.0 PIP: 48 Tube Feeding Amount: 35 I&O: Intake and Output 04/14/16 04/15/16 19:00 07:00 Intake Total 445 ml 600 ml Output Total 1920 ml 1250 ml Balance -1475 ml -650 ml Free Water 50 ml IV Total 165 ml 165 ml Tube Feeding 280 ml 385 ml Output Urine Total 1920 ml 1250 ml # Bowel Movements 1 CXR: slightly better ET-Tube: 7.0 ET Position: 21 Labs: Laboratory Tests Test 04/15/16 04:30 04/15/16 07:30 White Blood Count 5.0 K/UL (4.8-10.8) Red Blood Count 3.00 M/UL (4.20-5.40) L Hemoglobin 8.2 G/DL (12.0-16.0) L Hematocrit 27.6 % (37.0-47.0) L Mean Corpuscular Volume 92 FL (80-99) Mean Corpuscular Hemoglobin 27.5 PG (27.0-31.0) Mean Corpuscular Hemoglobin Concent 29.9 G/DL (32.0-36.0) L Red Cell Distribution Width 16.7 % (11.6-14.8) H Platelet Count 131 K/UL (150-450) L Mean Platelet Volume 6.8 FL (6.5-10.1) Neutrophils (%) (Auto) 69.6 % (45.0-75.0) Lymphocytes (%) (Auto) 15.6 % (20.0-45.0) L Monocytes (%) (Auto) 9.3 % (1.0-10.0) Eosinophils (%) (Auto) 4.4 % (0.0-3.0) H Basophils (%) (Auto) 1.1 % (0.0-2.0) Sodium Level 148 mEQ/L (135-145) H Potassium Level 3.3 mEQ/L (3.4-4.9) L Chloride Level 96 mEQ/L (98-107) L Carbon Dioxide Level 42 mEQ/L (20-30) *H Anion Gap 10 (5-15) Blood Urea Nitrogen 44 mg/dL (7-23) H Creatinine 1.4 mg/dL (0.5-0.9) H Estimat Glomerular Filtration Rate mL/min (>60) Glucose Level 116 mg/dL (74-106) H Calcium Level 8.4 mg/dL (8.6-10.2) L Phosphorus Level 3.2 mg/dL (2.5-4.8) Magnesium Level 1.8 mg/dL (1.7-2.5) Total Bilirubin 0.4 mg/dL (0.0-1.2) Aspartate Amino Transf (AST/SGOT) 17 U/L (5-40) Alanine Aminotransferase (ALT/SGPT) 8 U/L (3-33) Alkaline Phosphatase 73 U/L (35-104) Total Protein 6.6 g/dL (6.6-8.7) Albumin 3.2 g/dL (3.5-5.2) L Globulin 3.4 g/dL Albumin/Globulin Ratio 0.9 (1.0-2.7) L Arterial Blood pH 7.370 (7.350-7.450) Arterial Blood Partial Pressure CO2 85.1 mmHg (35.0-45.0) *H Arterial Blood Partial Pressure O2 117.2 mmHg (75.0-100.0) H Arterial Blood HCO3 48.4 mmol/L (22.0-26.0) H Arterial Blood Oxygen Saturation 97.7 % (92.0-98.0) Arterial Blood Base Excess 20.1 Mike Test Positive ARASH MIRANDA Apr 15, 2016 11:33
--- NOTE | 2016-04-15 11:37 | Diagnostic Imaging Report ---
Indication: DYSPNEA Technique: One view of the chest Comparison: 04/14/2016 Findings: Body habitus limits evaluation. Previously demonstrated endotracheal tube is barely visible currently. Nasogastric tube tip is poorly visualized, appears to project off the imaging volume. Cardiomegaly, bilateral congestion, probable bilateral pleural effusions persists, unchanged. Left arm PICC remains.. Impression: Unchanged, over one day, findings as above.
[2016-04-15] MEDS ORDERED: Vancomycin 750mg/D5W 275ml IVPB SCH ×2 (12:00)
--- NOTE | 2016-04-15 12:04 | General Progress Note ---
Assessment/Plan Status: doing well Status Narrative extubated on BIPAP Assessment/Plan status: Acute renal failure- Acute Respiratory Failure Anemia Morbid Obesity CHF ? Sepsis Plan: post extubation care K supplement Stop IV fluid Calcium supplements with Vit D on board- Optimize cardiac and pulmonary status- Avoid Nephrotoxics- monitor renal parameters Urine studies- Keep BP over 100 syst Antibiotics Subjective ROS Limited/Unobtainable: No Constitutional: Reports: malaise, weakness Allergies: Coded Allergies: AMOXICILLIN (Verified Allergy, Mild, RASH, 12/25/09) PENICILLINS (Unverified Allergy, Unknown, 04/06/16) Objective Last 24 Hour Vital Signs Date Time Temp Pulse Resp B/P Pulse Ox O2 Delivery O2 Flow Rate FiO2 04/15/16 10:36 63 22 100 Facial 30 04/15/16 09:23 75 04/15/16 08:55 66 20 97 Facial 40 04/15/16 08:00 40 04/15/16 07:18 64 20 93 Facial 40 04/15/16 07:00 62 17 137/70 97 Mechanical Ventilator 40 04/15/16 06:00 60 20 130/46 94 Bi-pap 40 60 04/15/16 06:00 60 135/46 04/15/16 05:06 64 17 99 Facial 40 04/15/16 05:00 62 20 130/77 99 Bi-pap 40 64 04/15/16 04:00 40 04/15/16 04:00 98.0 65 20 125/60 98 Bi-pap 40 66 04/15/16 04:00 62 04/15/16 03:05 70 16 99 Facial 40 04/15/16 03:04 68 20 122/84 98 Bi-pap 40 04/15/16 02:00 62 22 127/42 99 Bi-pap 40 04/15/16 01:13 62 15 99 Facial 40 04/15/16 01:00 63 18 104/42 98 Bi-pap 40 04/15/16 00:00 40 04/15/16 00:00 98.5 63 19 115/45 99 Bi-pap 40 04/15/16 00:00 63 04/14/16 23:27 62 16 99 Facial 40 04/14/16 23:00 60 17 127/49 98 Bi-pap 40 04/14/16 22:00 63 22 128/85 100 Bi-pap 40 04/14/16 21:30 62 126/67 3/8/17 21:00 69 17 126/67 100 Bi-pap 40 04/14/16 20:41 69 19 99 Facial 40 04/14/16 20:00 40 04/14/16 20:00 98.0 63 21 140/73 99 Bi-pap 40 04/14/16 20:00 63 04/14/16 19:00 67 18 131/68 100 Bi-pap 40 04/14/16 18:58 70 18 98 40 04/14/16 18:57 97.8 04/14/16 18:00 65 20 147/60 98 Bi-pap 40 04/14/16 17:00 69 16 99 Facial 40 04/14/16 17:00 71 10 138/59 98 Bi-pap 40 04/14/16 16:00 65 04/14/16 16:00 97.8 64 22 144/62 96 Bi-pap 40 04/14/16 16:00 40 04/14/16 15:00 73 20 98 Facial 40 04/14/16 15:00 67 16 132/52 100 Mechanical Ventilator 40 04/14/16 14:50 Bi-pap 40 04/14/16 14:45 40 04/14/16 14:00 65 16 144/62 100 Mechanical Ventilator 40 04/14/16 14:00 54 114/46 04/14/16 13:11 60 17 40 04/14/16 13:00 57 16 108/50 100 Mechanical Ventilator 40 Intake and Output 04/14/16 04/15/16 19:00 07:00 Intake Total 445 ml 600 ml Output Total 1920 ml 1250 ml Balance -1475 ml -650 ml Free Water 50 ml IV Total 165 ml 165 ml Tube Feeding 280 ml 385 ml Output Urine Total 1920 ml 1250 ml # Bowel Movements 1 Laboratory Tests 04/15/16 04:30: White Blood Count 5.0, Red Blood Count 3.00L, Hemoglobin 8.2L, Hematocrit 27.6L , Mean Corpuscular Volume 92, Mean Corpuscular Hemoglobin 27.5, Mean Corpuscular Hemoglobin Concent 29.9L, Red Cell Distribution Width 16.7H, Platelet Count 131L, Mean Platelet Volume 6.8, Neutrophils (%) (Auto) 69.6, Lymphocytes (%) (Auto) 15.6L, Monocytes (%) (Auto) 9.3, Eosinophils (%) (Auto) 4.4H, Basophils (%) (Auto) 1.1, Sodium Level 148H, Potassium Level 3.3L, Chloride Level 96L, Carbon Dioxide Level 42*H, Anion Gap 10, Blood Urea Nitrogen 44H, Creatinine 1.4H, Estimat Glomerular Filtration Rate , Glucose Level 116H, Calcium Level 8.4L, Phosphorus Level 3.2, Magnesium Level 1.8, Total Bilirubin 0.4, Aspartate Amino Transf (AST/SGOT) 17, Alanine Aminotransferase (ALT/SGPT) 8, Alkaline Phosphatase 73, Total Protein 6.6, Albumin 3.2L, Globulin 3.4, Albumin/Globulin Ratio 0.9L 04/15/16 07:30: Arterial Blood pH 7.370, Arterial Blood Partial Pressure CO2 85.1*H, Arterial Blood Partial Pressure O2 117.2H, Arterial Blood HCO3 48.4H, Arterial Blood Oxygen Saturation 97.7, Arterial Blood Base Excess 20.1, Mike Test Positive Height (Feet): 5 Height (Inches): 8.00 Weight (Pounds): 350 General Appearance: mild distress EENT: other - ON BIPAPA Cardiovascular: normal rate Respiratory/Chest: decreased breath sounds Abdomen: soft, other - obese Edema: 2+ Arm (L), 2+ Arm (R), 2+ Leg (L), 2+ Leg (R), 2+ Pedal (L), 2+ Pedal ( R), 2+ Generalized Objective other PE not changed COURTNEY LOPEZ Apr 15, 2016 12:03
[2016-04-15] MEDS ORDERED: NS 275ml ONE (15:06)
[2016-04-15] MEDS ORDERED: Sterile Water Irrig 1000ml IRRIG ONE (15:06)
--- NOTE | 2016-04-15 16:38 | Cardiac Electrophysiology PN ---
Assessment/Plan Assessment/Plan 1. S/P Respiratory failure, due to chronic obstructive pulmonary disease and volume overload. Extubated on BIPAP. Echocardiogram showed ejection fraction of 55% to 60%.Still On Lasix drip at 10 mg/hr. Change Lasix to 80 iv BID. 2. Atrial fibrillation, rapid ventricular response. Continue Dig 0.125 and Cardizem 30 mg three times a day 3. Lower extremity cellulitis, on IV antibiotics with vancomycin and aztreonam. 4. Morbid obesity. 5. CKD creatinine 1.5 DW RN Subjective Subjective In ICU on BIPAP, alert and responsive. Atrial Fib rate stable on Digoxin and Cardizem.On Lasix drip. Objective Last 24 Hour Vital Signs Date Time Temp Pulse Resp B/P Pulse Ox O2 Delivery O2 Flow Rate FiO2 04/15/16 15:00 71 17 135/68 95 Bi-pap 30 04/15/16 14:59 75 15 97 Facial 30 04/15/16 14:52 64 134/75 04/15/16 14:00 67 19 134/75 93 Bi-pap 30 04/15/16 13:23 30 04/15/16 13:08 84 29 96 Facial 30 04/15/16 13:00 68 21 136/74 92 Bi-pap 30 04/15/16 12:00 97.0 74 18 136/68 92 Bi-pap 30 04/15/16 12:00 66 04/15/16 11:00 68 21 138/63 93 Bi-pap 30 04/15/16 10:36 63 22 100 Facial 30 04/15/16 10:00 67 21 144/40 93 Bi-pap 30 04/15/16 09:23 75 04/15/16 09:00 67 20 126/65 95 Bi-pap 30 04/15/16 08:55 66 20 97 Facial 30 04/15/16 08:00 97.4 66 18 115/85 97 Bi-pap 40 04/15/16 08:00 64 04/15/16 08:00 40 04/15/16 07:18 64 20 93 Facial 40 04/15/16 07:00 62 17 137/70 97 Mechanical Ventilator 40 04/15/16 06:00 60 20 130/46 94 Bi-pap 40 60 04/15/16 06:00 60 135/46 04/15/16 05:06 64 17 99 Facial 40 04/15/16 05:00 62 20 130/77 99 Bi-pap 40 64 04/15/16 04:00 40 04/15/16 04:00 98.0 65 20 125/60 98 Bi-pap 40 66 04/15/16 04:00 62 04/15/16 03:05 70 16 99 Facial 40 04/15/16 03:04 68 20 122/84 98 Bi-pap 40 04/15/16 02:00 62 22 127/42 99 Bi-pap 40 04/15/16 01:13 62 15 99 Facial 40 04/15/16 01:00 63 18 104/42 98 Bi-pap 40 04/15/16 00:00 40 04/15/16 00:00 98.5 63 19 115/45 99 Bi-pap 40 04/15/16 00:00 63 04/14/16 23:27 62 16 99 Facial 40 04/14/16 23:00 60 17 127/49 98 Bi-pap 40 04/14/16 22:00 63 22 128/85 100 Bi-pap 40 04/14/16 21:30 62 126/67 04/14/16 21:00 69 17 126/67 100 Bi-pap 40 04/14/16 20:41 69 19 99 Facial 40 04/14/16 20:00 40 04/14/16 20:00 98.0 63 21 140/73 99 Bi-pap 40 04/14/16 20:00 63 04/14/16 19:00 67 18 131/68 100 Bi-pap 40 04/14/16 18:58 70 18 98 40 04/14/16 18:57 97.8 04/14/16 18:00 65 20 147/60 98 Bi-pap 40 04/14/16 17:00 69 16 99 Facial 40 04/14/16 17:00 71 10 138/59 98 Bi-pap 40 Intake and Output 04/14/16 04/15/16 19:00 07:00 Intake Total 445 ml 600 ml Output Total 1920 ml 1250 ml Balance -1475 ml -650 ml Free Water 50 ml IV Total 165 ml 165 ml Tube Feeding 280 ml 385 ml Output Urine Total 1920 ml 1250 ml # Bowel Movements 1 Laboratory Tests Test 04/15/16 04:30 04/15/16 07:30 White Blood Count 5.0 K/UL (4.8-10.8) Red Blood Count 3.00 M/UL (4.20-5.40) L Hemoglobin 8.2 G/DL (12.0-16.0) L Hematocrit 27.6 % (37.0-47.0) L Mean Corpuscular Volume 92 FL (80-99) Mean Corpuscular Hemoglobin 27.5 PG (27.0-31.0) Mean Corpuscular Hemoglobin Concent 29.9 G/DL (32.0-36.0) L Red Cell Distribution Width 16.7 % (11.6-14.8) H Platelet Count 131 K/UL (150-450) L Mean Platelet Volume 6.8 FL (6.5-10.1) Neutrophils (%) (Auto) 69.6 % (45.0-75.0) Lymphocytes (%) (Auto) 15.6 % (20.0-45.0) L Monocytes (%) (Auto) 9.3 % (1.0-10.0) Eosinophils (%) (Auto) 4.4 % (0.0-3.0) H Basophils (%) (Auto) 1.1 % (0.0-2.0) Sodium Level 148 mEQ/L (135-145) H Potassium Level 3.3 mEQ/L (3.4-4.9) L Chloride Level 96 mEQ/L (98-107) L Carbon Dioxide Level 42 mEQ/L (20-30) *H Anion Gap 10 (5-15) Blood Urea Nitrogen 44 mg/dL (7-23) H Creatinine 1.4 mg/dL (0.5-0.9) H Estimat Glomerular Filtration Rate mL/min (>60) Glucose Level 116 mg/dL (74-106) H Calcium Level 8.4 mg/dL (8.6-10.2) L Phosphorus Level 3.2 mg/dL (2.5-4.8) Magnesium Level 1.8 mg/dL (1.7-2.5) Total Bilirubin 0.4 mg/dL (0.0-1.2) Aspartate Amino Transf (AST/SGOT) 17 U/L (5-40) Alanine Aminotransferase (ALT/SGPT) 8 U/L (3-33) Alkaline Phosphatase 73 U/L (35-104) Total Protein 6.6 g/dL (6.6-8.7) Albumin 3.2 g/dL (3.5-5.2) L Globulin 3.4 g/dL Albumin/Globulin Ratio 0.9 (1.0-2.7) L Arterial Blood pH 7.370 (7.350-7.450) Arterial Blood Partial Pressure CO2 85.1 mmHg (35.0-45.0) *H Arterial Blood Partial Pressure O2 117.2 mmHg (75.0-100.0) H Arterial Blood HCO3 48.4 mmol/L (22.0-26.0) H Arterial Blood Oxygen Saturation 97.7 % (92.0-98.0) Arterial Blood Base Excess 20.1 Mike Test Positive Objective HEAD AND NECK: No JVD LUNGS: Coarse rhonchi bilaterally. CARDIOVASCULAR: Irregularly irregular S1 and S2 with no gallop or murmur. ABDOMEN: Morbidly obese. EXTREMITIES: 1+ pitting edema.Left leg cellulitis. JOHN NUÑEZ Apr 15, 2016 16:38
[2016-04-15] MEDS: Furosemide 40mg tab ORAL SCH (20:52)
--- NOTE | 2016-04-15 23:33 | Infectious Diseases Prog Note ---
Assessment/Plan Assessment/Plan A: The patient is a 75-year-old female with Leukocytosis , SP Sepsis, improving Pneumonia SCX: NL Fl LLExt Cellulitis improving UCx :Neg VDRF , SP Obesity CHF HTN COPD GERD. DM PLAN: Cont on Levaquin, vancomycin, and Azactam d# , will DC in AM Monitor CBC Monitor BMP. Monitor renal function. Monitor CBC. Monitor chest x-ray. Subjective Constitutional: Denies: anorexia, chills, drenching sweats, fatigue, fever, no symptoms, other Allergies: Coded Allergies: AMOXICILLIN (Verified Allergy, Mild, RASH, 12/25/09) PENICILLINS (Unverified Allergy, Unknown, 04/06/16) Subjective on BiPAP Objective Vital Signs Last 24 Hour Vital Signs Date Time Temp Pulse Resp B/P Pulse Ox O2 Delivery O2 Flow Rate FiO2 04/15/16 23:10 70 19 97 Facial 30 04/15/16 23:00 69 16 136/59 93 Bi-pap 30 04/15/16 22:23 67 148/73 04/15/16 22:00 67 14 148/73 95 Bi-pap 30 04/15/16 21:00 75 26 131/54 96 Bi-pap 30 04/15/16 20:45 72 18 97 Facial 30 04/15/16 20:00 67 04/15/16 20:00 30 04/15/16 20:00 97.5 67 12 141/71 98 Bi-pap 30 04/15/16 19:00 62 17 124/66 94 Bi-pap 30 04/15/16 18:55 61 21 97 Facial 30 04/15/16 18:00 68 19 127/62 95 Bi-pap 30 04/15/16 17:40 66 16 96 Facial 30 04/15/16 17:00 65 23 127/58 99 Bi-pap 30 04/15/16 16:00 72 04/15/16 16:00 30 04/15/16 16:00 98.2 72 16 108/52 98 Bi-pap 30 04/15/16 15:00 71 17 135/68 95 Bi-pap 30 04/15/16 14:59 75 15 97 Facial 30 04/15/16 14:52 64 134/75 04/15/16 14:00 67 19 134/75 93 Bi-pap 30 04/15/16 13:23 30 04/15/16 13:08 84 29 96 Facial 30 04/15/16 13:00 68 21 136/74 92 Bi-pap 30 04/15/16 12:00 97.0 74 18 136/68 92 Bi-pap 30 04/15/16 12:00 66 04/15/16 11:00 68 21 138/63 93 Bi-pap 30 04/15/16 10:36 63 22 100 Facial 30 04/15/16 10:00 67 21 144/40 93 Bi-pap 30 04/15/16 09:23 75 04/15/16 09:00 67 20 126/65 95 Bi-pap 30 04/15/16 08:55 66 20 97 Facial 30 04/15/16 08:00 97.4 66 18 115/85 97 Bi-pap 40 04/15/16 08:00 64 04/15/16 08:00 40 04/15/16 07:18 64 20 93 Facial 40 04/15/16 07:00 62 17 137/70 97 Mechanical Ventilator 40 04/15/16 06:00 60 20 130/46 94 Bi-pap 40 60 04/15/16 06:00 60 135/46 04/15/16 05:06 64 17 99 Facial 40 04/15/16 05:00 62 20 130/77 99 Bi-pap 40 64 04/15/16 04:00 40 04/15/16 04:00 98.0 65 20 125/60 98 Bi-pap 40 66 04/15/16 04:00 62 04/15/16 03:05 70 16 99 Facial 40 04/15/16 03:04 68 20 122/84 98 Bi-pap 40 04/15/16 02:00 62 22 127/42 99 Bi-pap 40 04/15/16 01:13 62 15 99 Facial 40 04/15/16 01:00 63 18 104/42 98 Bi-pap 40 04/15/16 00:00 40 04/15/16 00:00 98.5 63 19 115/45 99 Bi-pap 40 04/15/16 00:00 63 Height (Feet): 5 Height (Inches): 8.00 Weight (Pounds): 350 HEENT: atraumatic Respiratory/Chest: normal breath sounds Cardiovascular: regular rhythm Abdomen: non distended Laboratory Tests Test 04/15/16 04:30 04/15/16 07:30 White Blood Count 5.0 K/UL (4.8-10.8) Red Blood Count 3.00 M/UL (4.20-5.40) L Hemoglobin 8.2 G/DL (12.0-16.0) L Hematocrit 27.6 % (37.0-47.0) L Mean Corpuscular Volume 92 FL (80-99) Mean Corpuscular Hemoglobin 27.5 PG (27.0-31.0) Mean Corpuscular Hemoglobin Concent 29.9 G/DL (32.0-36.0) L Red Cell Distribution Width 16.7 % (11.6-14.8) H Platelet Count 131 K/UL (150-450) L Mean Platelet Volume 6.8 FL (6.5-10.1) Neutrophils (%) (Auto) 69.6 % (45.0-75.0) Lymphocytes (%) (Auto) 15.6 % (20.0-45.0) L Monocytes (%) (Auto) 9.3 % (1.0-10.0) Eosinophils (%) (Auto) 4.4 % (0.0-3.0) H Basophils (%) (Auto) 1.1 % (0.0-2.0) Sodium Level 148 mEQ/L (135-145) H Potassium Level 3.3 mEQ/L (3.4-4.9) L Chloride Level 96 mEQ/L (98-107) L Carbon Dioxide Level 42 mEQ/L (20-30) *H Anion Gap 10 (5-15) Blood Urea Nitrogen 44 mg/dL (7-23) H Creatinine 1.4 mg/dL (0.5-0.9) H Estimat Glomerular Filtration Rate mL/min (>60) Glucose Level 116 mg/dL (74-106) H Calcium Level 8.4 mg/dL (8.6-10.2) L Phosphorus Level 3.2 mg/dL (2.5-4.8) Magnesium Level 1.8 mg/dL (1.7-2.5) Total Bilirubin 0.4 mg/dL (0.0-1.2) Aspartate Amino Transf (AST/SGOT) 17 U/L (5-40) Alanine Aminotransferase (ALT/SGPT) 8 U/L (3-33) Alkaline Phosphatase 73 U/L (35-104) Total Protein 6.6 g/dL (6.6-8.7) Albumin 3.2 g/dL (3.5-5.2) L Globulin 3.4 g/dL Albumin/Globulin Ratio 0.9 (1.0-2.7) L Arterial Blood pH 7.370 (7.350-7.450) Arterial Blood Partial Pressure CO2 85.1 mmHg (35.0-45.0) *H Arterial Blood Partial Pressure O2 117.2 mmHg (75.0-100.0) H Arterial Blood HCO3 48.4 mmol/L (22.0-26.0) H Arterial Blood Oxygen Saturation 97.7 % (92.0-98.0) Arterial Blood Base Excess 20.1 Mike Test Positive Current Medications Medications (Trade) Dose Ordered Sig/Kalyn Route PRN Reason Start Time Stop Time Status Last Admin Dose Admin Acetaminophen 650 mg 650 mg Q4H PRN NG Fever/Headache/Mild Pain 04/14/16 18:30 05/14/16 18:29 04/14/16 18:27 Albuterol/ Ipratropium (DuoNeb 0.5-3(2.5)mg/3ml) 3 ml Q4H PRN HHN Shortness of Breath 04/10/16 14:30 04/15/16 23:59 Artificial Tears (Akwa-Tears) 2 drop Q2H PRN BOTH EYES Dry Eyes 04/14/16 09:00 05/14/16 08:59 04/15/16 09:26 Aztreonam/Dextrose (Azactam/D5W) 55 ml @ 110 mls/hr Q8HR IVPB 04/06/16 22:00 04/17/16 21:59 04/15/16 22:23 Calcium Carbonate (Calcium Carbonate) 1,300 mg THREE TIMES A DAY NG 04/14/16 18:00 05/14/16 17:59 04/15/16 17:59 Dextrose (Dextrose 50%) STAT PRN IV Hypoglycemia 04/06/16 10:30 05/06/16 10:29 Digoxin (Lanoxin) 0.125 mg DAILY NG 04/08/16 09:00 05/08/16 08:59 04/15/16 09:23 Diltiazem HCl (Cardizem) 30 mg EVERY 8 HOURS NG 04/08/16 15:13 05/07/16 14:59 04/15/16 22:23 Furosemide (Lasix) 80 mg EVERY 12 HOURS ORAL 04/15/16 21:00 05/15/16 20:59 04/15/16 20:52 Heparin Sodium (Porcine) (Heparin 5000 units/ml) 5,000 units EVERY 12 HOURS SUBQ 04/06/16 21:00 05/06/16 20:59 04/15/16 20:54 Insulin Aspart (NovoLOG) EVERY 6 HOURS SUBQ 04/09/16 18:00 05/09/16 17:59 04/15/16 17:58 Lorazepam (Ativan 2mg/ml 1ml) 0.5 mg Q4H PRN IV For Anxiety 04/11/16 14:30 04/18/16 14:29 04/14/16 08:28 Morphine Sulfate (Morphine Sulfate) 4 mg Q4H PRN IVP For Pain 04/11/16 14:30 04/18/16 14:29 04/15/16 03:27 Nystatin (Nystop Powder) 1 applic THREE TIMES A DAY TOPIC 04/13/16 18:00 05/13/16 17:59 04/15/16 17:59 Ondansetron HCl (Zofran) 4 mg Q6H PRN IVP Nausea & Vomiting 04/06/16 10:30 05/06/16 10:29 04/15/16 16:44 Pantoprazole (Protonix) 40 mg DAILY IV 04/06/16 10:30 05/06/16 10:29 04/15/16 09:23 Polyethylene Glycol (Miralax) 17 gm DAILYPRN PRN GT Constipation 04/08/16 15:13 05/06/16 10:59 Vancomycin HCl 1 ea 1 ea DAILY PRN MISC Per rx protocol 04/06/16 11:00 05/06/16 10:59 Vancomycin HCl/ Dextrose (Vancomycin/D5W) 275 ml @ 183.708 mls/hr Q24H IVPB 04/15/16 12:00 04/15/16 23:59 04/15/16 12:46 Vitamin D (Vitamin D) 5,000 intlu DAILY GT 04/08/16 13:00 05/08/16 12:59 04/15/16 09:24 LINDSEY HILL M.D. Apr 15, 2016 23:33
[2016-04-16] VITALS (16 sets, daily range): BP systolic 93–160; BP diastolic 45–72
[2016-04-16] MEDS: Acetaminophen 650mg/20.3ml NG PRN (03:05)
[2016-04-16] MEDS: Aztreonam Inj 0.5 GM in D5W 55 ML IVPB SCH (05:10)
[2016-04-16] MEDS: NovoLOG Insulin Flexpen SUBQ SCH ×4 (05:17→18:52)
[2016-04-16 06:26] LABS: EOSINOPHILS % (AUTO) 3.2 % (0.0-3.0); LYMPHOCYTES % (AUTO) 10.2 % (20.0-45.0); MEAN CORPUSCULAR HEMOGLOBIN 27.4 PG (27.0-31.0); MEAN CORPUSCULAR HGB CONC 29.8 G/DL (32.0-36.0); MEAN CORPUSCULAR VOLUME 92 FL (80-99); MEAN PLATELET VOLUME 6.9 FL (6.5-10.1); MONOCYTES % (AUTO) 10.2 % (1.0-10.0); NEUTROPHILS % (AUTO) 75.5 % (45.0-75.0); PLATELET COUNT 144 K/UL (150-450); RED BLOOD COUNT 3.01 M/UL (4.20-5.40); RED CELL DISTRIBUTION WIDTH 16.5 % (11.6-14.8); WHITE BLOOD COUNT 5.2 K/UL (4.8-10.8)
[2016-04-16 07:10] LABS: KETONES,URINE NEGATIVE (NEGATIVE); LEUKOCYTE ESTERASE ,URINE 3+ (NEGATIVE); NITRITE,URINE NEGATIVE (NEGATIVE); PH,URINE 5 (4.5-8.0); PROTEIN,URINE 3+ (NEGATIVE); UROBILINOGEN,URINE NORMAL MG/DL (0.0-1.0)
[2016-04-16 07:29] LABS: APPEARANCE,URINE CLOUDY; BACTERIA,URINE FEW /HPF; RBC,URINE 15-20 /HPF (0 - 2); SQUAMOUS EPITHELIAL CELL,UR FEW /LPF (NONE/OCC); WBC,URINE 20-30 /HPF (0 - 2)
[2016-04-16 07:36] LABS: ALANINE AMINOTRANSFERASE 8 U/L (3-33); ALBUMIN/GLOBULIN RATIO 0.9 (1.0-2.7); ASPARTATE AMINO TRANSFERASE 16 U/L (5-40); CALCIUM 9.1 mg/dL (8.6-10.2); CHLORIDE 93 mEQ/L (98-107); CREATININE 1.5 mg/dL (0.5-0.9); HEMOLYSIS 5; MAGNESIUM 1.9 mg/dL (1.7-2.5); PHOSPHORUS 2.8 mg/dL (2.5-4.8); POTASSIUM 3.6 mEQ/L (3.4-4.9); SODIUM 146 mEQ/L (135-145); TOTAL PROTEIN 6.9 g/dL (6.6-8.7)
[2016-04-16 07:41] LABS: ANION GAP 12 (5-15)
[2016-04-16 07:43] LABS: CARBON DIOXIDE 41 mEQ/L (20-30)
[2016-04-16] MEDS: Digoxin Elixir 0.125mg NG SCH (09:14)
[2016-04-16] MEDS: Pantoprazole Inj IV SCH (09:14)
[2016-04-16] MEDS: Nystatin Powder 100,000 units/gm 15gm TOPIC SCH ×3 (09:14→18:46)
[2016-04-16] MEDS: Calcium Carbonate 650mg Tab NG SCH ×3 (09:14→18:46)
[2016-04-16] MEDS: Furosemide 40mg tab ORAL SCH (09:15)
[2016-04-16] MEDS: Morphine Sulfate 4mg/ml Inj IVP PRN ×2 (09:16→23:07)
[2016-04-16] MEDS: Heparin 5000 units/ml inj SUBQ SCH ×2 (09:18→21:41)
[2016-04-16 09:31] LABS: ABG ALLEN TEST POSITIVE; ABG BASE EXCESS 21.8; ABG PCO2 76.8 mmHg (35.0-45.0)
[2016-04-16] MEDS: Vitamin D 1000 IU Tab GT SCH (09:40)
--- NOTE | 2016-04-16 10:26 | General Progress Note ---
Assessment/Plan Status: stable Status Narrative Cr 1.5 Assessment/Plan status: Acute renal failure- Acute Respiratory Failure Anemia Morbid Obesity CHF ? Sepsis Plan: post extubation care K supplement Stop IV fluid Calcium supplements with Vit D on board- Optimize cardiac and pulmonary status- Avoid Nephrotoxics- monitor renal parameters Urine studies- Keep BP over 100 syst Antibiotics Subjective ROS Limited/Unobtainable: No Constitutional: Reports: malaise Allergies: Coded Allergies: AMOXICILLIN (Verified Allergy, Mild, RASH, 12/25/09) PENICILLINS (Unverified Allergy, Unknown, 04/06/16) Objective Last 24 Hour Vital Signs Date Time Temp Pulse Resp B/P Pulse Ox O2 Delivery O2 Flow Rate FiO2 04/16/16 09:14 67 04/16/16 06:51 63 18 119/56 96 Bi-pap 30 04/16/16 06:45 69 16 95 Facial 30 04/16/16 06:00 69 19 119/52 93 Bi-pap 30 04/16/16 05:15 65 22 95 Facial 30 04/16/16 05:10 67 137/46 04/16/16 05:00 70 19 135/45 93 Bi-pap 30 04/16/16 04:00 30 04/16/16 04:00 98.2 71 19 112/51 93 Bi-pap 30 04/16/16 04:00 69 04/16/16 03:15 68 24 97 Facial 30 04/16/16 03:00 72 19 134/56 94 Bi-pap 30 04/16/16 02:00 65 19 120/60 94 Bi-pap 30 04/16/16 01:00 66 19 118/58 94 Bi-pap 30 04/16/16 00:50 67 16 95 Facial 30 04/16/16 00:00 64 04/16/16 00:00 98.2 64 19 118/58 94 Bi-pap 30 04/16/16 00:00 30 04/15/16 23:10 70 19 97 Facial 30 04/15/16 23:00 69 16 136/59 93 Bi-pap 30 04/15/16 22:23 67 148/73 04/15/16 22:00 67 14 148/73 95 Bi-pap 30 04/15/16 21:00 75 26 131/54 96 Bi-pap 30 04/15/16 20:45 72 18 97 Facial 30 04/15/16 20:00 67 04/15/16 20:00 30 04/15/16 20:00 97.5 67 12 141/71 98 Bi-pap 30 04/15/16 19:00 62 17 124/66 94 Bi-pap 30 04/15/16 18:55 61 21 97 Facial 30 04/15/16 18:00 68 19 127/62 95 Bi-pap 30 04/15/16 17:40 66 16 96 Facial 30 04/15/16 17:00 65 23 127/58 99 Bi-pap 30 04/15/16 16:00 72 04/15/16 16:00 30 04/15/16 16:00 98.2 72 16 108/52 98 Bi-pap 30 04/15/16 15:00 71 17 135/68 95 Bi-pap 30 04/15/16 14:59 75 15 97 Facial 30 04/15/16 14:52 64 134/75 04/15/16 14:00 67 19 134/75 93 Bi-pap 30 04/15/16 13:23 30 04/15/16 13:08 84 29 96 Facial 30 04/15/16 13:00 68 21 136/74 92 Bi-pap 30 04/15/16 12:00 97.0 74 18 136/68 92 Bi-pap 30 04/15/16 12:00 66 04/15/16 11:00 68 21 138/63 93 Bi-pap 30 04/15/16 10:36 63 22 100 Facial 30 Intake and Output 04/15/16 04/16/16 19:00 07:00 Intake Total 1105 ml 660 ml Output Total 1775 ml 810 ml Balance -670 ml -150 ml Free Water 100 ml IV Total 475 ml 110 ml Tube Feeding 420 ml 420 ml Other 110 ml 130 ml Output Urine Total 1775 ml 810 ml Laboratory Tests 04/16/16 04:00: White Blood Count 5.2, Red Blood Count 3.01L, Hemoglobin 8.2L, Hematocrit 27.6L , Mean Corpuscular Volume 92, Mean Corpuscular Hemoglobin 27.4, Mean Corpuscular Hemoglobin Concent 29.8L, Red Cell Distribution Width 16.5H, Platelet Count 144L, Mean Platelet Volume 6.9, Neutrophils (%) (Auto) 75.5H, Lymphocytes (%) (Auto) 10.2L, Monocytes (%) (Auto) 10.2H, Eosinophils (%) (Auto ) 3.2H, Basophils (%) (Auto) 1.0, Urine Color Pale yellow, Urine Appearance Cloudy, Urine pH 5, Urine Specific [place] 1.005, Urine Protein 3+H, Urine Glucose (UA) Negative, Urine Ketones Negative, Urine Occult Blood 5+H, Urine Nitrite Negative, Urine Bilirubin Negative, Urine Urobilinogen Normal, Urine Leukocyte Esterase 3+H, Urine RBC 15-20H, Urine WBC 20-30H, Urine Squamous Epithelial Cells Few, Urine Bacteria Few, Sodium Level 146H, Potassium Level 3.6 , Chloride Level 93L, Carbon Dioxide Level 41*H, Anion Gap 12, Blood Urea Nitrogen 43H, Creatinine 1.5H, Estimat Glomerular Filtration Rate , Glucose Level 140H, Calcium Level 9.1, Phosphorus Level 2.8, Magnesium Level 1.9, Total Bilirubin 0.4, Aspartate Amino Transf (AST/SGOT) 16, Alanine Aminotransferase ( ALT/SGPT) 8, Alkaline Phosphatase 75, Total Protein 6.9, Albumin 3.3L, Globulin 3.6, Albumin/Globulin Ratio 0.9L 04/16/16 08:59: Arterial Blood pH 7.425, Arterial Blood Partial Pressure CO2 76.8*H, Arterial Blood Partial Pressure O2 68.3L, Arterial Blood HCO3 49.3H, Arterial Blood Oxygen Saturation 94.0, Arterial Blood Base Excess 21.8, Mike Test Positive Height (Feet): 5 Height (Inches): 8.00 Weight (Pounds): 350 General Appearance: mild distress Cardiovascular: normal rate Respiratory/Chest: decreased breath sounds Abdomen: soft, distended Objective other PE not changed COURTNEY LOPEZ Apr 16, 2016 10:26
--- NOTE | 2016-04-16 11:01 | Pulmonolgy Critical Care Note ---
Critical Care - Asmt/Plan Problems: (1) Acute respiratory failure with hypoxia and hypercarbia (2) COPD exacerbation (3) Pneumonia (4) Atrial fibrillation with RVR (5) Morbid obesity Respiratory: monitor respiratory rate, adjust FIO2 Cardiac: continue to monitor HR/BP Renal: F/U I&O, keep IV fluid Infectious Disease: check cultures Gastrointestinal: continue feedings/current rate Endocrine: monitor blood sugar, continue sliding scale insulin Hematologic: monitor H/H, transfuse if hgb<8.5 Neurologic: PRN Ativan, keep patient comfortable Affect: PRN ativan Prophylaxis: Heparin Notes Reviewed: press operator automatic, cardio, renal 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: nurses, consultants, manager of case, other - pt want cpr, without intubation. she signed her own consent Critical Care - Objective Last 24 Hour Vital Signs Date Time Temp Pulse Resp B/P Pulse Ox O2 Delivery O2 Flow Rate FiO2 04/16/16 10:00 65 21 135/72 96 Bi-pap 30 04/16/16 09:30 50 04/16/16 09:14 67 04/16/16 09:00 66 21 134/58 94 Bi-pap 30 04/16/16 08:51 71 16 96 Facial 30 04/16/16 08:00 30 04/16/16 08:00 97.6 63 21 93/63 94 Bi-pap 30 04/16/16 08:00 60 04/16/16 06:51 63 18 119/56 96 Bi-pap 30 04/16/16 06:45 69 16 95 Facial 30 04/16/16 06:00 69 19 119/52 93 Bi-pap 30 04/16/16 05:15 65 22 95 Facial 30 04/16/16 05:10 67 137/46 04/16/16 05:00 70 19 135/45 93 Bi-pap 30 04/16/16 04:00 30 04/16/16 04:00 98.2 71 19 112/51 93 Bi-pap 30 04/16/16 04:00 69 04/16/16 03:15 68 24 97 Facial 30 04/16/16 03:00 72 19 134/56 94 Bi-pap 30 04/16/16 02:00 65 19 120/60 94 Bi-pap 30 04/16/16 01:00 66 19 118/58 94 Bi-pap 30 04/16/16 00:50 67 16 95 Facial 30 04/16/16 00:00 64 04/16/16 00:00 98.2 64 19 118/58 94 Bi-pap 30 04/16/16 00:00 30 04/15/16 23:10 70 19 97 Facial 30 04/15/16 23:00 69 16 136/59 93 Bi-pap 30 04/15/16 22:23 67 148/73 04/15/16 22:00 67 14 148/73 95 Bi-pap 30 04/15/16 21:00 75 26 131/54 96 Bi-pap 30 04/15/16 20:45 72 18 97 Facial 30 04/15/16 20:00 67 04/15/16 20:00 30 04/15/16 20:00 97.5 67 12 141/71 98 Bi-pap 30 04/15/16 19:00 62 17 124/66 94 Bi-pap 30 04/15/16 18:55 61 21 97 Facial 30 04/15/16 18:00 68 19 127/62 95 Bi-pap 30 04/15/16 17:40 66 16 96 Facial 30 04/15/16 17:00 65 23 127/58 99 Bi-pap 30 04/15/16 16:00 72 04/15/16 16:00 30 04/15/16 16:00 98.2 72 16 108/52 98 Bi-pap 30 04/15/16 15:00 71 17 135/68 95 Bi-pap 30 04/15/16 14:59 75 15 97 Facial 30 04/15/16 14:52 64 134/75 04/15/16 14:00 67 19 134/75 93 Bi-pap 30 04/15/16 13:23 30 04/15/16 13:08 84 29 96 Facial 30 04/15/16 13:00 68 21 136/74 92 Bi-pap 30 04/15/16 12:00 97.0 74 18 136/68 92 Bi-pap 30 04/15/16 12:00 66 Status: awake, sedated Condition: critical HEENT: atraumatic Neck: full ROM Lungs: clear Heart: HR/BP stable, regular Abdomen: soft, active bowel sounds Extremities: no C/C/E, edema Decubiti: location Accucheck: 146 Critical Care - Subjective ROS Limited/Unobtainable: No ICU Day: 10 Condition: critical EKG Rhythm: Sinus Rhythm FI02: 30 Vent Support Breath Rate: 14 Vent Support Mode: BiLevel Vent Tidal Volume: 500 Sputum Amount: None PEEP: 5.0 PIP: 48 Tube Feeding Amount: 35 I&O: Intake and Output 04/15/16 04/16/16 19:00 07:00 Intake Total 1105 ml 660 ml Output Total 1775 ml 810 ml Balance -670 ml -150 ml Free Water 100 ml IV Total 475 ml 110 ml Tube Feeding 420 ml 420 ml Other 110 ml 130 ml Output Urine Total 1775 ml 810 ml CXR: improving ET-Tube: 7.0 ET Position: 21 Labs: Laboratory Tests Test 04/16/16 04:00 04/16/16 08:59 White Blood Count 5.2 K/UL (4.8-10.8) Red Blood Count 3.01 M/UL (4.20-5.40) L Hemoglobin 8.2 G/DL (12.0-16.0) L Hematocrit 27.6 % (37.0-47.0) L Mean Corpuscular Volume 92 FL (80-99) Mean Corpuscular Hemoglobin 27.4 PG (27.0-31.0) Mean Corpuscular Hemoglobin Concent 29.8 G/DL (32.0-36.0) L Red Cell Distribution Width 16.5 % (11.6-14.8) H Platelet Count 144 K/UL (150-450) L Mean Platelet Volume 6.9 FL (6.5-10.1) Neutrophils (%) (Auto) 75.5 % (45.0-75.0) H Lymphocytes (%) (Auto) 10.2 % (20.0-45.0) L Monocytes (%) (Auto) 10.2 % (1.0-10.0) H Eosinophils (%) (Auto) 3.2 % (0.0-3.0) H Basophils (%) (Auto) 1.0 % (0.0-2.0) Urine Color Pale yellow Urine Appearance Cloudy Urine pH 5 (4.5-8.0) Urine Specific [place] 1.005 (1.005-1.035) Urine Protein 3+ (NEGATIVE) H Urine Glucose (UA) Negative (NEGATIVE) Urine Ketones Negative (NEGATIVE) Urine Occult Blood 5+ (NEGATIVE) H Urine Nitrite Negative (NEGATIVE) Urine Bilirubin Negative (NEGATIVE) Urine Urobilinogen Normal MG/DL (0.0-1.0) Urine Leukocyte Esterase 3+ (NEGATIVE) H Urine RBC 15-20 /HPF (0 - 2) H Urine WBC 20-30 /HPF (0 - 2) H Urine Squamous Epithelial Cells Few /LPF (NONE/OCC) Urine Bacteria Few /HPF (NONE) Sodium Level 146 mEQ/L (135-145) H Potassium Level 3.6 mEQ/L (3.4-4.9) Chloride Level 93 mEQ/L (98-107) L Carbon Dioxide Level 41 mEQ/L (20-30) *H Anion Gap 12 (5-15) Blood Urea Nitrogen 43 mg/dL (7-23) H Creatinine 1.5 mg/dL (0.5-0.9) H Estimat Glomerular Filtration Rate mL/min (>60) Glucose Level 140 mg/dL (74-106) H Calcium Level 9.1 mg/dL (8.6-10.2) Phosphorus Level 2.8 mg/dL (2.5-4.8) Magnesium Level 1.9 mg/dL (1.7-2.5) Total Bilirubin 0.4 mg/dL (0.0-1.2) Aspartate Amino Transf (AST/SGOT) 16 U/L (5-40) Alanine Aminotransferase (ALT/SGPT) 8 U/L (3-33) Alkaline Phosphatase 75 U/L (35-104) Total Protein 6.9 g/dL (6.6-8.7) Albumin 3.3 g/dL (3.5-5.2) L Globulin 3.6 g/dL Albumin/Globulin Ratio 0.9 (1.0-2.7) L Arterial Blood pH 7.425 (7.350-7.450) Arterial Blood Partial Pressure CO2 76.8 mmHg (35.0-45.0) *H Arterial Blood Partial Pressure O2 68.3 mmHg (75.0-100.0) L Arterial Blood HCO3 49.3 mmol/L (22.0-26.0) H Arterial Blood Oxygen Saturation 94.0 % (92.0-98.0) Arterial Blood Base Excess 21.8 Mike Test Positive ARASH MIRANDA Apr 16, 2016 11:01
--- NOTE | 2016-04-16 11:17 | Infectious Diseases Prog Note ---
Assessment/Plan Assessment/Plan A: The patient is a 75-year-old female with Leukocytosis , SP Sepsis, SP Pneumonia SCX: NL Fl LLExt Cellulitis SP UCx :Neg VDRF , SP Obesity CHF HTN COPD GERD. DM PLAN: DC Levaquin, vancomycin, and Azactam d# , and monitor pt off of AB Rx Monitor CBC Monitor BMP. Monitor renal function. Monitor CBC. Monitor chest x-ray. Subjective Allergies: Coded Allergies: AMOXICILLIN (Verified Allergy, Mild, RASH, 12/25/09) PENICILLINS (Unverified Allergy, Unknown, 04/06/16) Subjective on BiPAP Objective Vital Signs Last 24 Hour Vital Signs Date Time Temp Pulse Resp B/P Pulse Ox O2 Delivery O2 Flow Rate FiO2 04/16/16 11:00 60 22 128/59 94 Bi-pap 50 04/16/16 10:00 65 21 135/72 96 Bi-pap 30 04/16/16 09:30 50 04/16/16 09:14 67 04/16/16 09:00 66 21 134/58 94 Bi-pap 30 04/16/16 08:51 71 16 96 Facial 30 04/16/16 08:00 30 04/16/16 08:00 97.6 63 21 93/63 94 Bi-pap 30 04/16/16 08:00 60 04/16/16 06:51 63 18 119/56 96 Bi-pap 30 04/16/16 06:45 69 16 95 Facial 30 04/16/16 06:00 69 19 119/52 93 Bi-pap 30 04/16/16 05:15 65 22 95 Facial 30 04/16/16 05:10 67 137/46 04/16/16 05:00 70 19 135/45 93 Bi-pap 30 04/16/16 04:00 30 04/16/16 04:00 98.2 71 19 112/51 93 Bi-pap 30 04/16/16 04:00 69 04/16/16 03:15 68 24 97 Facial 30 04/16/16 03:00 72 19 134/56 94 Bi-pap 30 04/16/16 02:00 65 19 120/60 94 Bi-pap 30 04/16/16 01:00 66 19 118/58 94 Bi-pap 30 04/16/16 00:50 67 16 95 Facial 30 04/16/16 00:00 64 04/16/16 00:00 98.2 64 19 118/58 94 Bi-pap 30 04/16/16 00:00 30 04/15/16 23:10 70 19 97 Facial 30 04/15/16 23:00 69 16 136/59 93 Bi-pap 30 04/15/16 22:23 67 148/73 04/15/16 22:00 67 14 148/73 95 Bi-pap 30 04/15/16 21:00 75 26 131/54 96 Bi-pap 30 04/15/16 20:45 72 18 97 Facial 30 04/15/16 20:00 67 04/15/16 20:00 30 04/15/16 20:00 97.5 67 12 141/71 98 Bi-pap 30 04/15/16 19:00 62 17 124/66 94 Bi-pap 30 04/15/16 18:55 61 21 97 Facial 30 04/15/16 18:00 68 19 127/62 95 Bi-pap 30 04/15/16 17:40 66 16 96 Facial 30 04/15/16 17:00 65 23 127/58 99 Bi-pap 30 04/15/16 16:00 72 04/15/16 16:00 30 04/15/16 16:00 98.2 72 16 108/52 98 Bi-pap 30 04/15/16 15:00 71 17 135/68 95 Bi-pap 30 04/15/16 14:59 75 15 97 Facial 30 04/15/16 14:52 64 134/75 04/15/16 14:00 67 19 134/75 93 Bi-pap 30 04/15/16 13:23 30 04/15/16 13:08 84 29 96 Facial 30 04/15/16 13:00 68 21 136/74 92 Bi-pap 30 04/15/16 12:00 97.0 74 18 136/68 92 Bi-pap 30 04/15/16 12:00 66 Height (Feet): 5 Height (Inches): 8.00 Weight (Pounds): 350 HEENT: atraumatic Respiratory/Chest: accessory muscle use Cardiovascular: normal rate Abdomen: soft, non tender Laboratory Tests Test 04/16/16 04:00 04/16/16 08:59 White Blood Count 5.2 K/UL (4.8-10.8) Red Blood Count 3.01 M/UL (4.20-5.40) L Hemoglobin 8.2 G/DL (12.0-16.0) L Hematocrit 27.6 % (37.0-47.0) L Mean Corpuscular Volume 92 FL (80-99) Mean Corpuscular Hemoglobin 27.4 PG (27.0-31.0) Mean Corpuscular Hemoglobin Concent 29.8 G/DL (32.0-36.0) L Red Cell Distribution Width 16.5 % (11.6-14.8) H Platelet Count 144 K/UL (150-450) L Mean Platelet Volume 6.9 FL (6.5-10.1) Neutrophils (%) (Auto) 75.5 % (45.0-75.0) H Lymphocytes (%) (Auto) 10.2 % (20.0-45.0) L Monocytes (%) (Auto) 10.2 % (1.0-10.0) H Eosinophils (%) (Auto) 3.2 % (0.0-3.0) H Basophils (%) (Auto) 1.0 % (0.0-2.0) Urine Color Pale yellow Urine Appearance Cloudy Urine pH 5 (4.5-8.0) Urine Specific [place] 1.005 (1.005-1.035) Urine Protein 3+ (NEGATIVE) H Urine Glucose (UA) Negative (NEGATIVE) Urine Ketones Negative (NEGATIVE) Urine Occult Blood 5+ (NEGATIVE) H Urine Nitrite Negative (NEGATIVE) Urine Bilirubin Negative (NEGATIVE) Urine Urobilinogen Normal MG/DL (0.0-1.0) Urine Leukocyte Esterase 3+ (NEGATIVE) H Urine RBC 15-20 /HPF (0 - 2) H Urine WBC 20-30 /HPF (0 - 2) H Urine Squamous Epithelial Cells Few /LPF (NONE/OCC) Urine Bacteria Few /HPF (NONE) Sodium Level 146 mEQ/L (135-145) H Potassium Level 3.6 mEQ/L (3.4-4.9) Chloride Level 93 mEQ/L (98-107) L Carbon Dioxide Level 41 mEQ/L (20-30) *H Anion Gap 12 (5-15) Blood Urea Nitrogen 43 mg/dL (7-23) H Creatinine 1.5 mg/dL (0.5-0.9) H Estimat Glomerular Filtration Rate mL/min (>60) Glucose Level 140 mg/dL (74-106) H Calcium Level 9.1 mg/dL (8.6-10.2) Phosphorus Level 2.8 mg/dL (2.5-4.8) Magnesium Level 1.9 mg/dL (1.7-2.5) Total Bilirubin 0.4 mg/dL (0.0-1.2) Aspartate Amino Transf (AST/SGOT) 16 U/L (5-40) Alanine Aminotransferase (ALT/SGPT) 8 U/L (3-33) Alkaline Phosphatase 75 U/L (35-104) Total Protein 6.9 g/dL (6.6-8.7) Albumin 3.3 g/dL (3.5-5.2) L Globulin 3.6 g/dL Albumin/Globulin Ratio 0.9 (1.0-2.7) L Arterial Blood pH 7.425 (7.350-7.450) Arterial Blood Partial Pressure CO2 76.8 mmHg (35.0-45.0) *H Arterial Blood Partial Pressure O2 68.3 mmHg (75.0-100.0) L Arterial Blood HCO3 49.3 mmol/L (22.0-26.0) H Arterial Blood Oxygen Saturation 94.0 % (92.0-98.0) Arterial Blood Base Excess 21.8 Mike Test Positive Current Medications Medications (Trade) Dose Ordered Sig/Kalyn Route PRN Reason Start Time Stop Time Status Last Admin Dose Admin Acetaminophen (Tylenol) 650 mg Q4H PRN NG Fever/Headache/Mild Pain 04/14/16 18:30 05/14/16 18:29 04/16/16 03:05 Artificial Tears (Akwa-Tears) 2 drop Q2H PRN BOTH EYES Dry Eyes 04/14/16 09:00 05/14/16 08:59 04/15/16 09:26 Aztreonam/Dextrose (Azactam/D5W) 55 ml @ 110 mls/hr Q8HR IVPB 04/06/16 22:00 04/17/16 21:59 04/16/16 05:10 Calcium Carbonate (Calcium Carbonate) 1,300 mg THREE TIMES A DAY NG 04/14/16 18:00 05/14/16 17:59 04/16/16 09:14 Dextrose (Dextrose 50%) STAT PRN IV Hypoglycemia 04/06/16 10:30 05/06/16 10:29 Digoxin (Lanoxin) 0.125 mg DAILY NG 04/08/16 09:00 05/08/16 08:59 04/16/16 09:14 Diltiazem HCl (Cardizem) 30 mg EVERY 8 HOURS NG 04/08/16 15:13 05/07/16 14:59 04/16/16 05:10 Furosemide (Lasix) 80 mg EVERY 12 HOURS ORAL 04/15/16 21:00 05/15/16 20:59 04/16/16 09:15 Heparin Sodium (Porcine) (Heparin 5000 units/ml) 5,000 units EVERY 12 HOURS SUBQ 04/06/16 21:00 05/06/16 20:59 04/16/16 09:18 Insulin Aspart (NovoLOG) EVERY 6 HOURS SUBQ 04/09/16 18:00 05/09/16 17:59 04/16/16 05:17 Lorazepam (Ativan 2mg/ml 1ml) 0.5 mg Q4H PRN IV For Anxiety 04/11/16 14:30 04/18/16 14:29 04/14/16 08:28 Morphine Sulfate (Morphine Sulfate) 4 mg Q4H PRN IVP For Pain 04/11/16 14:30 04/18/16 14:29 04/16/16 09:16 Nystatin (Nystop Powder) 1 applic THREE TIMES A DAY TOPIC 04/13/16 18:00 05/13/16 17:59 04/16/16 09:14 Ondansetron HCl (Zofran) 4 mg Q6H PRN IVP Nausea & Vomiting 04/06/16 10:30 05/06/16 10:29 04/16/16 09:15 Pantoprazole (Protonix) 40 mg DAILY IV 04/06/16 10:30 05/06/16 10:29 04/16/16 09:14 Polyethylene Glycol (Miralax) 17 gm DAILYPRN PRN GT Constipation 04/08/16 15:13 05/06/16 10:59 Vancomycin HCl 1 ea 1 ea DAILY PRN MISC Per rx protocol 04/06/16 11:00 05/06/16 10:59 Vitamin D (Vitamin D) 5,000 intlu DAILY GT 04/08/16 13:00 05/08/16 12:59 04/16/16 09:40 LINDSEY HILL M.D. Apr 16, 2016 11:17
[2016-04-16] MEDS ORDERED: Miralax 17gm pkt GT PRN (13:00)
[2016-04-16] MEDS ORDERED: Artificial Tears 1.4% Op Soln BOTH EYES PRN (13:00)
[2016-04-16] MEDS ORDERED: Acetaminophen 650mg/20.3ml NG PRN (13:00)
[2016-04-16] MEDS ORDERED: LORazepam Inj 2mg/ml 1ml IV PRN (13:00)
--- NOTE | 2016-04-16 13:55 | Diagnostic Imaging Report ---
Indication: Dyspnea Comparison: 04/15/16 A single view chest radiograph was obtained. Findings: Hilar vessels are prominent. Cardiomegaly is again noted. Some vascular congestion again demonstrated. Impression: Mild CHF suspected. No significant change
--- NOTE | 2016-04-16 16:47 | Cardiac Electrophysiology PN ---
Assessment/Plan Assessment/Plan 1. S/P Respiratory failure, due to chronic obstructive pulmonary disease and volume overload. Extubated on BIPAP. Echocardiogram showed ejection fraction of 55% to 60%.On Lasix 80 po BID. 2. Atrial fibrillation, rapid ventricular response. Continue Dig 0.125 and Cardizem 30 mg three times a day 3. Lower extremity cellulitis, on IV antibiotics with vancomycin and aztreonam. 4. Morbid obesity. 5. CKD creatinine 1.5 6. DNI DW RN Subjective Subjective Transferred from ICU on BIPAP, alert and responsive. Atrial Fib rate better on Digoxin and Cardizem.On Lasix iv Objective Last 24 Hour Vital Signs Date Time Temp Pulse Resp B/P Pulse Ox O2 Delivery O2 Flow Rate FiO2 04/16/16 15:22 76 16 99 Facial 30 04/16/16 14:00 66 125/58 04/16/16 13:46 97.6 66 17 125/58 100 Bi-pap 50 04/16/16 12:30 72 16 95 Facial 30 04/16/16 12:18 50 04/16/16 12:00 65 04/16/16 11:00 70 16 96 Facial 30 04/16/16 11:00 60 22 128/59 94 Bi-pap 50 04/16/16 10:00 65 21 135/72 96 Bi-pap 30 04/16/16 09:30 50 04/16/16 09:14 67 04/16/16 09:00 66 21 134/58 94 Bi-pap 30 04/16/16 08:51 71 16 96 Facial 30 04/16/16 08:00 30 04/16/16 08:00 97.6 63 21 93/63 94 Bi-pap 30 04/16/16 08:00 60 04/16/16 06:51 63 18 119/56 96 Bi-pap 30 04/16/16 06:45 69 16 95 Facial 30 04/16/16 06:00 69 19 119/52 93 Bi-pap 30 04/16/16 05:15 65 22 95 Facial 30 04/16/16 05:10 67 137/46 04/16/16 05:00 70 19 135/45 93 Bi-pap 30 04/16/16 04:00 30 04/16/16 04:00 98.2 71 19 112/51 93 Bi-pap 30 04/16/16 04:00 69 04/16/16 03:15 68 24 97 Facial 30 04/16/16 03:00 72 19 134/56 94 Bi-pap 30 04/16/16 02:00 65 19 120/60 94 Bi-pap 30 04/16/16 01:00 66 19 118/58 94 Bi-pap 30 04/16/16 00:50 67 16 95 Facial 30 04/16/16 00:00 64 04/16/16 00:00 98.2 64 19 118/58 94 Bi-pap 30 04/16/16 00:00 30 04/15/16 23:10 70 19 97 Facial 30 04/15/16 23:00 69 16 136/59 93 Bi-pap 30 04/15/16 22:23 67 148/73 04/15/16 22:00 67 14 148/73 95 Bi-pap 30 04/15/16 21:00 75 26 131/54 96 Bi-pap 30 04/15/16 20:45 72 18 97 Facial 30 04/15/16 20:00 67 04/15/16 20:00 30 04/15/16 20:00 97.5 67 12 141/71 98 Bi-pap 30 04/15/16 19:00 62 17 124/66 94 Bi-pap 30 04/15/16 18:55 61 21 97 Facial 30 04/15/16 18:00 68 19 127/62 95 Bi-pap 30 04/15/16 17:40 66 16 96 Facial 30 04/15/16 17:00 65 23 127/58 99 Bi-pap 30 Intake and Output 04/15/16 04/16/16 19:00 07:00 Intake Total 1105 ml 660 ml Output Total 1775 ml 810 ml Balance -670 ml -150 ml Free Water 100 ml IV Total 475 ml 110 ml Tube Feeding 420 ml 420 ml Other 110 ml 130 ml Output Urine Total 1775 ml 810 ml Laboratory Tests Test 04/16/16 04:00 04/16/16 08:59 White Blood Count 5.2 K/UL (4.8-10.8) Red Blood Count 3.01 M/UL (4.20-5.40) L Hemoglobin 8.2 G/DL (12.0-16.0) L Hematocrit 27.6 % (37.0-47.0) L Mean Corpuscular Volume 92 FL (80-99) Mean Corpuscular Hemoglobin 27.4 PG (27.0-31.0) Mean Corpuscular Hemoglobin Concent 29.8 G/DL (32.0-36.0) L Red Cell Distribution Width 16.5 % (11.6-14.8) H Platelet Count 144 K/UL (150-450) L Mean Platelet Volume 6.9 FL (6.5-10.1) Neutrophils (%) (Auto) 75.5 % (45.0-75.0) H Lymphocytes (%) (Auto) 10.2 % (20.0-45.0) L Monocytes (%) (Auto) 10.2 % (1.0-10.0) H Eosinophils (%) (Auto) 3.2 % (0.0-3.0) H Basophils (%) (Auto) 1.0 % (0.0-2.0) Urine Color Pale yellow Urine Appearance Cloudy Urine pH 5 (4.5-8.0) Urine Specific [place] 1.005 (1.005-1.035) Urine Protein 3+ (NEGATIVE) H Urine Glucose (UA) Negative (NEGATIVE) Urine Ketones Negative (NEGATIVE) Urine Occult Blood 5+ (NEGATIVE) H Urine Nitrite Negative (NEGATIVE) Urine Bilirubin Negative (NEGATIVE) Urine Urobilinogen Normal MG/DL (0.0-1.0) Urine Leukocyte Esterase 3+ (NEGATIVE) H Urine RBC 15-20 /HPF (0 - 2) H Urine WBC 20-30 /HPF (0 - 2) H Urine Squamous Epithelial Cells Few /LPF (NONE/OCC) Urine Bacteria Few /HPF (NONE) Sodium Level 146 mEQ/L (135-145) H Potassium Level 3.6 mEQ/L (3.4-4.9) Chloride Level 93 mEQ/L (98-107) L Carbon Dioxide Level 41 mEQ/L (20-30) *H Anion Gap 12 (5-15) Blood Urea Nitrogen 43 mg/dL (7-23) H Creatinine 1.5 mg/dL (0.5-0.9) H Estimat Glomerular Filtration Rate mL/min (>60) Glucose Level 140 mg/dL (74-106) H Calcium Level 9.1 mg/dL (8.6-10.2) Phosphorus Level 2.8 mg/dL (2.5-4.8) Magnesium Level 1.9 mg/dL (1.7-2.5) Total Bilirubin 0.4 mg/dL (0.0-1.2) Aspartate Amino Transf (AST/SGOT) 16 U/L (5-40) Alanine Aminotransferase (ALT/SGPT) 8 U/L (3-33) Alkaline Phosphatase 75 U/L (35-104) Total Protein 6.9 g/dL (6.6-8.7) Albumin 3.3 g/dL (3.5-5.2) L Globulin 3.6 g/dL Albumin/Globulin Ratio 0.9 (1.0-2.7) L Arterial Blood pH 7.425 (7.350-7.450) Arterial Blood Partial Pressure CO2 76.8 mmHg (35.0-45.0) *H Arterial Blood Partial Pressure O2 68.3 mmHg (75.0-100.0) L Arterial Blood HCO3 49.3 mmol/L (22.0-26.0) H Arterial Blood Oxygen Saturation 94.0 % (92.0-98.0) Arterial Blood Base Excess 21.8 Mike Test Positive Objective HEAD AND NECK: No JVD LUNGS: Coarse rhonchi bilaterally. CARDIOVASCULAR: Irregularly irregular S1 and S2 with no gallop or murmur. ABDOMEN: Morbidly obese. EXTREMITIES: 1+ pitting edema.Left leg cellulitis. JOHN NUÑEZ Apr 16, 2016 16:47
--- NOTE | 2016-04-16 19:29 | General Progress Note ---
Assessment/Plan Assessment/Plan Diagnosis 1. Acute hypoxemic and hypercapnic respiratory failure requiring intubation. 2. Acute kidney injury. 3. Morbid obesity. 4. Hypokalemia 5. Diabetes mellitus. 6. Congestive heart failure. 7. Chronic obstructive pulmonary disease exacerbation 8. Pulmonary hypertension. 9. severe edema/anasarca 10. Acute anemia 11. Acute diastolic heart failure 12. left lower extremity cellulitis 13. Pneumonia 14. s/p extubation on 04/14/16 now on BiPap plan: -transfered out of ICU on 04/16/16 -continue present care -daily labs -Biapap per Dr. Rene -finished course of IV antibiotics, monitor off abx per Dr. Milan -nephrology input appreciated -cardiology input appreciated -type and cross match for one unit of PRBC -continue lasix 80 mg po bid, I's and O's -continuept/ot out of bed to cardiac chair discussed with Nurse FULL code Subjective Date patient seen: Apr 16, 2016 Time patient seen: 19:26 Constitutional: Reports: no symptoms HEENT: Reports: no symptoms Cardiovascular: Reports: no symptoms Respiratory: Reports: shortness of breath Gastrointestinal/Abdominal: Reports: no symptoms Genitourinary: Reports: no symptoms Neurologic/Psychiatric: Reports: no symptoms Endocrine: Reports: no symptoms Hematologic/Lymphatic: Reports: no symptoms Allergies: Coded Allergies: AMOXICILLIN (Verified Allergy, Mild, RASH, 12/25/09) PENICILLINS (Unverified Allergy, Unknown, 04/06/16) Subjective patient seen in ICU Objective Last 24 Hour Vital Signs Date Time Temp Pulse Resp B/P Pulse Ox O2 Delivery O2 Flow Rate FiO2 04/16/16 16:00 97.3 64 20 160/63 99 Non-Rebreather 04/16/16 15:22 76 16 99 Facial 30 04/16/16 14:00 66 125/58 04/16/16 13:46 97.6 66 17 125/58 100 Bi-pap 50 04/16/16 12:30 72 16 95 Facial 30 04/16/16 12:18 50 04/16/16 12:00 65 04/16/16 11:00 70 16 96 Facial 30 04/16/16 11:00 60 22 128/59 94 Bi-pap 50 04/16/16 10:00 65 21 135/72 96 Bi-pap 30 04/16/16 09:30 50 3/10/17 09:14 67 04/16/16 09:00 66 21 134/58 94 Bi-pap 30 04/16/16 08:51 71 16 96 Facial 30 04/16/16 08:00 30 04/16/16 08:00 97.6 63 21 93/63 94 Bi-pap 30 04/16/16 08:00 60 04/16/16 06:51 63 18 119/56 96 Bi-pap 30 04/16/16 06:45 69 16 95 Facial 30 04/16/16 06:00 69 19 119/52 93 Bi-pap 30 04/16/16 05:15 65 22 95 Facial 30 04/16/16 05:10 67 137/46 04/16/16 05:00 70 19 135/45 93 Bi-pap 30 04/16/16 04:00 30 04/16/16 04:00 98.2 71 19 112/51 93 Bi-pap 30 04/16/16 04:00 69 04/16/16 03:15 68 24 97 Facial 30 04/16/16 03:00 72 19 134/56 94 Bi-pap 30 04/16/16 02:00 65 19 120/60 94 Bi-pap 30 04/16/16 01:00 66 19 118/58 94 Bi-pap 30 04/16/16 00:50 67 16 95 Facial 30 04/16/16 00:00 64 04/16/16 00:00 98.2 64 19 118/58 94 Bi-pap 30 04/16/16 00:00 30 04/15/16 23:10 70 19 97 Facial 30 04/15/16 23:00 69 16 136/59 93 Bi-pap 30 04/15/16 22:23 67 148/73 04/15/16 22:00 67 14 148/73 95 Bi-pap 30 04/15/16 21:00 75 26 131/54 96 Bi-pap 30 04/15/16 20:45 72 18 97 Facial 30 04/15/16 20:00 67 04/15/16 20:00 30 04/15/16 20:00 97.5 67 12 141/71 98 Bi-pap 30 Intake and Output 04/15/16 04/16/16 19:00 07:00 Intake Total 1105 ml 660 ml Output Total 1775 ml 810 ml Balance -670 ml -150 ml Free Water 100 ml IV Total 475 ml 110 ml Tube Feeding 420 ml 420 ml Other 110 ml 130 ml Output Urine Total 1775 ml 810 ml Laboratory Tests 04/16/16 04:00: White Blood Count 5.2, Red Blood Count 3.01L, Hemoglobin 8.2L, Hematocrit 27.6L , Mean Corpuscular Volume 92, Mean Corpuscular Hemoglobin 27.4, Mean Corpuscular Hemoglobin Concent 29.8L, Red Cell Distribution Width 16.5H, Platelet Count 144L, Mean Platelet Volume 6.9, Neutrophils (%) (Auto) 75.5H, Lymphocytes (%) (Auto) 10.2L, Monocytes (%) (Auto) 10.2H, Eosinophils (%) (Auto ) 3.2H, Basophils (%) (Auto) 1.0, Urine Color Pale yellow, Urine Appearance Cloudy, Urine pH 5, Urine Specific [place] 1.005, Urine Protein 3+H, Urine Glucose (UA) Negative, Urine Ketones Negative, Urine Occult Blood 5+H, Urine Nitrite Negative, Urine Bilirubin Negative, Urine Urobilinogen Normal, Urine Leukocyte Esterase 3+H, Urine RBC 15-20H, Urine WBC 20-30H, Urine Squamous Epithelial Cells Few, Urine Bacteria Few, Sodium Level 146H, Potassium Level 3.6 , Chloride Level 93L, Carbon Dioxide Level 41*H, Anion Gap 12, Blood Urea Nitrogen 43H, Creatinine 1.5H, Estimat Glomerular Filtration Rate , Glucose Level 140H, Calcium Level 9.1, Phosphorus Level 2.8, Magnesium Level 1.9, Total Bilirubin 0.4, Aspartate Amino Transf (AST/SGOT) 16, Alanine Aminotransferase ( ALT/SGPT) 8, Alkaline Phosphatase 75, Total Protein 6.9, Albumin 3.3L, Globulin 3.6, Albumin/Globulin Ratio 0.9L 04/16/16 08:59: Arterial Blood pH 7.425, Arterial Blood Partial Pressure CO2 76.8*H, Arterial Blood Partial Pressure O2 68.3L, Arterial Blood HCO3 49.3H, Arterial Blood Oxygen Saturation 94.0, Arterial Blood Base Excess 21.8, Mike Test Positive Height (Feet): 5 Height (Inches): 8.00 Weight (Pounds): 350 General Appearance: WD/WN, alert EENT: PERRL/EOMI Cardiovascular: irregularly irregular Respiratory/Chest: crackles/rales Abdomen: normal bowel sounds Extremities: swelling Edema: no edema noted Arm (L), no edema noted Arm (R), 2+ Leg (L), 2+ Leg (R), 2+ Pedal (L), 2+ Pedal (R), 1+ Generalized Edema: mild edema, moderate edema 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
[2016-04-16] MEDS: Furosemide 80mg tab ORAL SCH (21:36)
[2016-04-17] VITALS: BP 138/72
[2016-04-17] MEDS: NovoLOG Insulin Flexpen SUBQ SCH ×4 (00:27→18:00)
[2016-04-17 04:00] VITALS: BP 141/66
[2016-04-17 05:11] LABS: BASOPHILS % (AUTO) 0.9 % (0.0-2.0); EOSINOPHILS % (AUTO) 3.9 % (0.0-3.0); LYMPHOCYTES % (AUTO) 13.5 % (20.0-45.0); MEAN CORPUSCULAR HEMOGLOBIN 27.1 PG (27.0-31.0); MEAN CORPUSCULAR HGB CONC 29.6 G/DL (32.0-36.0); MEAN CORPUSCULAR VOLUME 92 FL (80-99); MEAN PLATELET VOLUME 6.3 FL (6.5-10.1); MONOCYTES % (AUTO) 9.3 % (1.0-10.0); NEUTROPHILS % (AUTO) 72.4 % (45.0-75.0); PLATELET COUNT 175 K/UL (150-450); RED BLOOD COUNT 3.15 M/UL (4.20-5.40); RED CELL DISTRIBUTION WIDTH 15.9 % (11.6-14.8); WHITE BLOOD COUNT 5.4 K/UL (4.8-10.8)
[2016-04-17 05:28] LABS: ALANINE AMINOTRANSFERASE 8 U/L (3-33); ALBUMIN/GLOBULIN RATIO 0.8 (1.0-2.7); ASPARTATE AMINO TRANSFERASE 15 U/L (5-40); CALCIUM 8.8 mg/dL (8.6-10.2); CHLORIDE 96 mEQ/L (98-107); CREATININE 1.4 mg/dL (0.5-0.9); HEMOLYSIS 0; MAGNESIUM 1.8 mg/dL (1.7-2.5); PHOSPHORUS 3.6 mg/dL (2.5-4.8); POTASSIUM 3.7 mEQ/L (3.4-4.9); SODIUM 149 mEQ/L (135-145); TOTAL PROTEIN 7.2 g/dL (6.6-8.7)
[2016-04-17 05:31] LABS: ANION GAP 13 (5-15); CARBON DIOXIDE 40 mEQ/L (20-30)
[2016-04-17 06:09] LABS: ABG ALLEN TEST POSITIVE; ABG BASE EXCESS 20.1; ABG PCO2 88.2 mmHg (35.0-45.0)
[2016-04-17 08:00] VITALS: BP 113/81
[2016-04-17] MEDS: Calcium Carbonate 650mg Tab NG SCH ×3 (08:33→18:00)
[2016-04-17] MEDS: Furosemide 80mg tab ORAL SCH ×2 (08:34→21:42)
[2016-04-17] MEDS: Vitamin D 1000 IU Tab GT SCH (08:34)
[2016-04-17] MEDS: Heparin 5000 units/ml inj SUBQ SCH ×2 (08:35→21:44)
[2016-04-17] MEDS: Pantoprazole Inj IV SCH (08:35)
[2016-04-17] MEDS: Digoxin Elixir 0.125mg NG SCH (08:35)
[2016-04-17] MEDS: Nystatin Powder 100,000 units/gm 15gm TOPIC SCH ×3 (08:36→18:00)
--- NOTE | 2016-04-17 11:36 | Pulmonology Progress Note ---
Assessment/Plan Problems: (1) Acute respiratory failure with hypoxia and hypercarbia (2) Pneumonia (3) COPD exacerbation (4) Atrial fibrillation with RVR (5) Morbid obesity Respiratory: monitor respiratory rate, adjust FIO2, other - weaing from bipap in morning again Cardiac: continue to monitor HR/BP Renal: F/U I&O, keep IV fluid Infectious Disease: check cultures, continue antibiotics Gastrointestinal: hold feedings Endocrine: continue sliding scale insulin Hematologic: monitor H/H, transfuse if hgb<8.5 Neurologic: PRN Ativan, keep patient comfortable Prophylaxis: Protonix Disposition: keep in ICU 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, 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: nurses, consultants, field nurse case manager Subjective ROS Limited/Unobtainable: No Interval Events: on bipap, doesn't tolerate NrM Allergies: Coded Allergies: AMOXICILLIN (Verified Allergy, Mild, RASH, 12/25/09) PENICILLINS (Unverified Allergy, Unknown, 04/06/16) Objective Last 24 Hour Vital Signs Date Time Temp Pulse Resp B/P Pulse Ox O2 Delivery O2 Flow Rate FiO2 04/17/16 10:38 66 18 98 Facial 50 04/17/16 09:07 65 20 98 Facial 50 04/17/16 08:35 77 04/17/16 08:00 65 04/17/16 08:00 97.7 62 24 113/81 97 Venturi Mask 55 04/17/16 07:28 98 Venturi Mask 14.0 55 04/17/16 07:28 Venturi Mask 14.0 55 04/17/16 06:18 89 138/72 04/17/16 05:03 89 16 100 04/17/16 04:00 97.0 74 24 141/66 100 Non-Rebreather 04/17/16 04:00 73 04/17/16 02:59 66 16 94 04/17/16 01:20 79 16 96 04/17/16 00:00 97.9 63 24 138/72 100 Non-Rebreather 04/17/16 00:00 59 04/16/16 23:00 73 14 96 04/16/16 21:39 65 160/60 04/16/16 21:30 72 16 98 04/16/16 20:00 63 04/16/16 20:00 96.8 64 20 152/72 100 Nasal Cannula 04/16/16 19:30 65 16 100 04/16/16 17:00 63 20 160/60 99 Non-Rebreather 04/16/16 16:00 97.3 64 20 160/63 99 Non-Rebreather 04/16/16 16:00 74 04/16/16 15:22 76 16 99 Facial 30 04/16/16 14:00 66 125/58 04/16/16 13:46 97.6 66 17 125/58 100 Bi-pap 50 04/16/16 12:30 72 16 95 Facial 30 04/16/16 12:18 50 04/16/16 12:00 65 Intake and Output 04/16/16 04/17/16 19:00 07:00 Intake Total 530 ml 320 ml Output Total 600 ml 300 ml Balance -70 ml 20 ml Free Water 100 ml 50 ml Tube Feeding 350 ml 210 ml Blood Product 50 ml Other 30 ml 60 ml Output Urine Total 600 ml 300 ml General Appearance: WD/WN HEENT: normocephalic, anicteric Respiratory/Chest: crackles/rales Breasts: no masses Cardiovascular: normal peripheral pulses, normal rate, no JVD Genitourinary: normal external genitalia Extremities: no cyanosis Skin: no rash Lymphatic: no neck adenopathy Microbiology Date/Time Source Procedure Growth Status 04/16/16 04:00 Indwelling Cath Urine Culture - Preliminary Strep Species, Gamma-Hemolytic Resulted Laboratory Tests 04/17/16 04:00: White Blood Count 5.4, Red Blood Count 3.15L, Hemoglobin 8.5L, Hematocrit 28.9L , Mean Corpuscular Volume 92, Mean Corpuscular Hemoglobin 27.1, Mean Corpuscular Hemoglobin Concent 29.6L, Red Cell Distribution Width 15.9H, Platelet Count 175, Mean Platelet Volume 6.3L, Neutrophils (%) (Auto) 72.4, Lymphocytes (%) (Auto) 13.5L, Monocytes (%) (Auto) 9.3, Eosinophils (%) (Auto) 3.9H, Basophils (%) (Auto) 0.9, Sodium Level 149H, Potassium Level 3.7, Chloride Level 96L, Carbon Dioxide Level 40H, Anion Gap 13, Blood Urea Nitrogen 42H, Creatinine 1.4H, Estimat Glomerular Filtration Rate , Glucose Level 118H, Calcium Level 8.8, Phosphorus Level 3.6, Magnesium Level 1.8, Total Bilirubin 0.4, Aspartate Amino Transf (AST/SGOT) 15, Alanine Aminotransferase (ALT/SGPT) 8 , Alkaline Phosphatase 78, Total Protein 7.2, Albumin 3.4L, Globulin 3.8, Albumin/Globulin Ratio 0.8L 04/17/16 06:00: Arterial Blood pH 7.360, Arterial Blood Partial Pressure CO2 88.2*H, Arterial Blood Partial Pressure O2 361.0H, Arterial Blood HCO3 48.8H, Arterial Blood Oxygen Saturation 99.3H, Arterial Blood Base Excess 20.1, Mike Test Positive Current Medications Medications (Trade) Dose Ordered Sig/Kalyn Route PRN Reason Start Time Stop Time Status Last Admin Dose Admin Acetaminophen (Tylenol) 650 mg Q4H PRN NG Fever/Headache/Mild Pain 04/16/16 13:00 05/16/16 12:59 Artificial Tears (Akwa-Tears) 2 drop Q2H PRN BOTH EYES Dry Eyes 04/16/16 13:00 05/16/16 12:59 Calcium Carbonate (Calcium Carbonate) 1,300 mg THREE TIMES A DAY NG 04/16/16 13:00 05/16/16 12:59 04/17/16 08:33 Dextrose (Dextrose 50%) STAT PRN IV Hypoglycemia 04/16/16 13:00 05/16/16 12:59 Digoxin (Lanoxin) 0.125 mg DAILY NG 04/17/16 09:00 05/17/16 08:59 04/17/16 08:35 Diltiazem HCl (Cardizem) 30 mg EVERY 8 HOURS NG 04/16/16 14:00 05/16/16 13:59 04/17/16 06:18 Furosemide (Lasix) 80 mg EVERY 12 HOURS ORAL 04/16/16 21:00 05/16/16 20:59 04/17/16 08:34 Heparin Sodium (Porcine) (Heparin 5000 units/ml) 5,000 units EVERY 12 HOURS SUBQ 04/16/16 21:00 05/16/16 20:59 04/17/16 08:35 Insulin Aspart (NovoLOG) EVERY 6 HOURS SUBQ 04/16/16 18:00 05/16/16 17:59 04/17/16 06:21 Lorazepam (Ativan 2mg/ml 1ml) 0.5 mg Q4H PRN IV For Anxiety 04/16/16 13:00 04/23/16 12:59 Morphine Sulfate (Morphine Sulfate) 4 mg Q4H PRN IVP PAIN 4-10 04/16/16 13:00 04/23/16 12:59 04/16/16 23:07 Nystatin (Nystop Powder) 1 applic THREE TIMES A DAY TOPIC 04/16/16 13:00 05/16/16 12:59 04/17/16 08:36 Ondansetron HCl (Zofran) 4 mg Q6H PRN IVP Nausea & Vomiting 04/16/16 13:00 05/16/16 12:59 Pantoprazole (Protonix) 40 mg DAILY IV 04/17/16 09:00 05/17/16 08:59 04/17/16 08:35 Polyethylene Glycol (Miralax) 17 gm DAILYPRN PRN GT Constipation 04/16/16 13:00 05/16/16 12:59 Vitamin D (Vitamin D) 5,000 intlu DAILY GT 04/17/16 09:00 05/17/16 08:59 04/17/16 08:34 ARASH MIRANDA Apr 17, 2016 11:36
[2016-04-17 12:00] VITALS: BP 145/61
--- NOTE | 2016-04-17 12:07 | General Progress Note ---
Assessment/Plan Status: stable - from renal stand, unchanged - from pulmonary stand Assessment/Plan status: Acute renal failure- Acute Respiratory Failure Anemia Morbid Obesity CHF ? Sepsis Plan: post extubation care K supplement Stop IV fluid Calcium supplements with Vit D on board- Optimize cardiac and pulmonary status- Avoid Nephrotoxics- monitor renal parameters Urine studies- Keep BP over 100 syst Antibiotics Subjective ROS Limited/Unobtainable: No Constitutional: Reports: malaise, weakness Allergies: Coded Allergies: AMOXICILLIN (Verified Allergy, Mild, RASH, 12/25/09) PENICILLINS (Unverified Allergy, Unknown, 04/06/16) Objective Last 24 Hour Vital Signs Date Time Temp Pulse Resp B/P Pulse Ox O2 Delivery O2 Flow Rate FiO2 04/17/16 10:38 66 18 98 Facial 50 04/17/16 09:07 65 20 98 Facial 50 04/17/16 08:35 77 04/17/16 08:00 65 04/17/16 08:00 97.7 62 24 113/81 97 Venturi Mask 55 04/17/16 07:28 98 Venturi Mask 14.0 55 04/17/16 07:28 Venturi Mask 14.0 55 04/17/16 06:18 89 138/72 04/17/16 05:03 89 16 100 04/17/16 04:00 97.0 74 24 141/66 100 Non-Rebreather 04/17/16 04:00 73 04/17/16 02:59 66 16 94 04/17/16 01:20 79 16 96 04/17/16 00:00 97.9 63 24 138/72 100 Non-Rebreather 04/17/16 00:00 59 04/16/16 23:00 73 14 96 04/16/16 21:39 65 160/60 04/16/16 21:30 72 16 98 04/16/16 20:00 63 04/16/16 20:00 96.8 64 20 152/72 100 Nasal Cannula 04/16/16 19:30 65 16 100 04/16/16 17:00 63 20 160/60 99 Non-Rebreather 04/16/16 16:00 97.3 64 20 160/63 99 Non-Rebreather 04/16/16 16:00 74 04/16/16 15:22 76 16 99 Facial 30 04/16/16 14:00 66 125/58 04/16/16 13:46 97.6 66 17 125/58 100 Bi-pap 50 04/16/16 12:30 72 16 95 Facial 30 04/16/16 12:18 50 Intake and Output 04/16/16 04/17/16 19:00 07:00 Intake Total 530 ml 320 ml Output Total 600 ml 300 ml Balance -70 ml 20 ml Free Water 100 ml 50 ml Tube Feeding 350 ml 210 ml Blood Product 50 ml Other 30 ml 60 ml Output Urine Total 600 ml 300 ml Laboratory Tests 04/17/16 04:00: White Blood Count 5.4, Red Blood Count 3.15L, Hemoglobin 8.5L, Hematocrit 28.9L , Mean Corpuscular Volume 92, Mean Corpuscular Hemoglobin 27.1, Mean Corpuscular Hemoglobin Concent 29.6L, Red Cell Distribution Width 15.9H, Platelet Count 175, Mean Platelet Volume 6.3L, Neutrophils (%) (Auto) 72.4, Lymphocytes (%) (Auto) 13.5L, Monocytes (%) (Auto) 9.3, Eosinophils (%) (Auto) 3.9H, Basophils (%) (Auto) 0.9, Sodium Level 149H, Potassium Level 3.7, Chloride Level 96L, Carbon Dioxide Level 40H, Anion Gap 13, Blood Urea Nitrogen 42H, Creatinine 1.4H, Estimat Glomerular Filtration Rate , Glucose Level 118H, Calcium Level 8.8, Phosphorus Level 3.6, Magnesium Level 1.8, Total Bilirubin 0.4, Aspartate Amino Transf (AST/SGOT) 15, Alanine Aminotransferase (ALT/SGPT) 8 , Alkaline Phosphatase 78, Total Protein 7.2, Albumin 3.4L, Globulin 3.8, Albumin/Globulin Ratio 0.8L 04/17/16 06:00: Arterial Blood pH 7.360, Arterial Blood Partial Pressure CO2 88.2*H, Arterial Blood Partial Pressure O2 361.0H, Arterial Blood HCO3 48.8H, Arterial Blood Oxygen Saturation 99.3H, Arterial Blood Base Excess 20.1, Mike Test Positive Height (Feet): 5 Height (Inches): 8.00 Weight (Pounds): 350 Cardiovascular: normal rate Respiratory/Chest: decreased breath sounds Abdomen: soft, other - obese Objective other PE not changed COURTNEY LOPEZ Apr 17, 2016 12:07
--- NOTE | 2016-04-17 15:14 | Cardiac Electrophysiology PN ---
Assessment/Plan Assessment/Plan 1. S/P Respiratory failure, due to chronic obstructive pulmonary disease and volume overload. Now on BIPAP. Echocardiogram showed ejection fraction of 55% to 60%.On Lasix 80 po BID. 2. Atrial fibrillation, rapid ventricular response. Continue Dig 0.125 and Cardizem 30 mg T.I.D. 3. HTN On Lasix and Cardizem. 4. Lower extremity cellulitis, on IV antibiotics with vancomycin and aztreonam. 5. Morbid obesity. 6. CKD creatinine 1.5 7. DNI DW RN Subjective Subjective Still on BIPAP, alert and responsive. Atrial Fib rate controlled on Digoxin and Cardizem. Objective Last 24 Hour Vital Signs Date Time Temp Pulse Resp B/P Pulse Ox O2 Delivery O2 Flow Rate FiO2 04/17/16 14:00 60 140/77 04/17/16 13:05 75 18 98 Facial 50 04/17/16 12:00 97.3 69 21 145/61 100 Bi-pap 50 04/17/16 12:00 69 04/17/16 10:38 66 18 98 Facial 50 04/17/16 09:07 65 20 98 Facial 50 04/17/16 08:35 77 04/17/16 08:00 65 04/17/16 08:00 97.7 62 24 113/81 97 Venturi Mask 55 04/17/16 07:28 98 Venturi Mask 14.0 55 04/17/16 07:28 Venturi Mask 14.0 55 04/17/16 06:18 89 138/72 04/17/16 05:03 89 16 100 04/17/16 04:00 97.0 74 24 141/66 100 Non-Rebreather 04/17/16 04:00 73 04/17/16 02:59 66 16 94 04/17/16 01:20 79 16 96 04/17/16 00:00 97.9 63 24 138/72 100 Non-Rebreather 04/17/16 00:00 59 04/16/16 23:00 73 14 96 04/16/16 21:39 65 160/60 04/16/16 21:30 72 16 98 04/16/16 20:00 63 04/16/16 20:00 96.8 64 20 152/72 100 Nasal Cannula 04/16/16 19:30 65 16 100 3/10/17 17:00 63 20 160/60 99 Non-Rebreather 04/16/16 16:00 97.3 64 20 160/63 99 Non-Rebreather 04/16/16 16:00 74 04/16/16 15:22 76 16 99 Facial 30 Intake and Output 04/16/16 04/17/16 19:00 07:00 Intake Total 530 ml 320 ml Output Total 600 ml 300 ml Balance -70 ml 20 ml Free Water 100 ml 50 ml Tube Feeding 350 ml 210 ml Blood Product 50 ml Other 30 ml 60 ml Output Urine Total 600 ml 300 ml Laboratory Tests Test 04/17/16 04:00 04/17/16 06:00 White Blood Count 5.4 K/UL (4.8-10.8) Red Blood Count 3.15 M/UL (4.20-5.40) L Hemoglobin 8.5 G/DL (12.0-16.0) L Hematocrit 28.9 % (37.0-47.0) L Mean Corpuscular Volume 92 FL (80-99) Mean Corpuscular Hemoglobin 27.1 PG (27.0-31.0) Mean Corpuscular Hemoglobin Concent 29.6 G/DL (32.0-36.0) L Red Cell Distribution Width 15.9 % (11.6-14.8) H Platelet Count 175 K/UL (150-450) Mean Platelet Volume 6.3 FL (6.5-10.1) L Neutrophils (%) (Auto) 72.4 % (45.0-75.0) Lymphocytes (%) (Auto) 13.5 % (20.0-45.0) L Monocytes (%) (Auto) 9.3 % (1.0-10.0) Eosinophils (%) (Auto) 3.9 % (0.0-3.0) H Basophils (%) (Auto) 0.9 % (0.0-2.0) Sodium Level 149 mEQ/L (135-145) H Potassium Level 3.7 mEQ/L (3.4-4.9) Chloride Level 96 mEQ/L (98-107) L Carbon Dioxide Level 40 mEQ/L (20-30) H Anion Gap 13 (5-15) Blood Urea Nitrogen 42 mg/dL (7-23) H Creatinine 1.4 mg/dL (0.5-0.9) H Estimat Glomerular Filtration Rate mL/min (>60) Glucose Level 118 mg/dL (74-106) H Calcium Level 8.8 mg/dL (8.6-10.2) Phosphorus Level 3.6 mg/dL (2.5-4.8) Magnesium Level 1.8 mg/dL (1.7-2.5) Total Bilirubin 0.4 mg/dL (0.0-1.2) Aspartate Amino Transf (AST/SGOT) 15 U/L (5-40) Alanine Aminotransferase (ALT/SGPT) 8 U/L (3-33) Alkaline Phosphatase 78 U/L (35-104) Total Protein 7.2 g/dL (6.6-8.7) Albumin 3.4 g/dL (3.5-5.2) L Globulin 3.8 g/dL Albumin/Globulin Ratio 0.8 (1.0-2.7) L Arterial Blood pH 7.360 (7.350-7.450) Arterial Blood Partial Pressure CO2 88.2 mmHg (35.0-45.0) *H Arterial Blood Partial Pressure O2 361.0 mmHg (75.0-100.0) H Arterial Blood HCO3 48.8 mmol/L (22.0-26.0) H Arterial Blood Oxygen Saturation 99.3 % (92.0-98.0) H Arterial Blood Base Excess 20.1 Mike Test Positive Microbiology Date/Time Source Procedure Growth Status 04/16/16 04:00 Indwelling Cath Urine Culture - Preliminary Strep Species, Gamma-Hemolytic Resulted Objective HEAD AND NECK: No JVD LUNGS: Coarse rhonchi bilaterally. CARDIOVASCULAR: Irregularly irregular S1 and S2 with no gallop or murmur. ABDOMEN: Morbidly obese. EXTREMITIES: 1+ pitting edema.Left leg cellulitis. JOHN NUÑEZ Apr 17, 2016 15:14
[2016-04-17 16:00] VITALS: BP 129/55
--- NOTE | 2016-04-17 16:05 | Infectious Diseases Prog Note ---
Assessment/Plan Assessment/Plan A: The patient is a 75-year-old female with Leukocytosis , SP Sepsis, SP Pneumonia SCX: NL Fl LLExt Cellulitis SP probable UTI / Dysuria UCx :Strp ( Ro VRE ) VDRF , SP Obesity CHF HTN COPD GERD. DM PLAN: start Zyvox d# Monitor CBC Monitor BMP. Monitor renal function. Monitor CBC. Monitor chest x-ray. Subjective Allergies: Coded Allergies: AMOXICILLIN (Verified Allergy, Mild, RASH, 12/25/09) PENICILLINS (Unverified Allergy, Unknown, 04/06/16) Subjective dysuria Objective Vital Signs Last 24 Hour Vital Signs Date Time Temp Pulse Resp B/P Pulse Ox O2 Delivery O2 Flow Rate FiO2 04/17/16 14:00 60 140/77 04/17/16 13:05 75 18 98 Facial 50 04/17/16 12:00 97.3 69 21 145/61 100 Bi-pap 50 04/17/16 12:00 69 04/17/16 10:38 66 18 98 Facial 50 04/17/16 09:07 65 20 98 Facial 50 04/17/16 08:35 77 04/17/16 08:00 65 04/17/16 08:00 97.7 62 24 113/81 97 Venturi Mask 55 04/17/16 07:28 98 Venturi Mask 14.0 55 04/17/16 07:28 Venturi Mask 14.0 55 04/17/16 06:18 89 138/72 04/17/16 05:03 89 16 100 04/17/16 04:00 97.0 74 24 141/66 100 Non-Rebreather 04/17/16 04:00 73 04/17/16 02:59 66 16 94 04/17/16 01:20 79 16 96 04/17/16 00:00 97.9 63 24 138/72 100 Non-Rebreather 04/17/16 00:00 59 04/16/16 23:00 73 14 96 04/16/16 21:39 65 160/60 04/16/16 21:30 72 16 98 04/16/16 20:00 63 04/16/16 20:00 96.8 64 20 152/72 100 Nasal Cannula 04/16/16 19:30 65 16 100 04/16/16 17:00 63 20 160/60 99 Non-Rebreather Height (Feet): 5 Height (Inches): 8.00 Weight (Pounds): 350 HEENT: anicteric Respiratory/Chest: normal breath sounds Cardiovascular: regularly irregular Abdomen: no mass Microbiology Date/Time Source Procedure Growth Status 04/16/16 04:00 Indwelling Cath Urine Culture - Preliminary Strep Species, Gamma-Hemolytic Resulted Laboratory Tests Test 04/17/16 04:00 04/17/16 06:00 White Blood Count 5.4 K/UL (4.8-10.8) Red Blood Count 3.15 M/UL (4.20-5.40) L Hemoglobin 8.5 G/DL (12.0-16.0) L Hematocrit 28.9 % (37.0-47.0) L Mean Corpuscular Volume 92 FL (80-99) Mean Corpuscular Hemoglobin 27.1 PG (27.0-31.0) Mean Corpuscular Hemoglobin Concent 29.6 G/DL (32.0-36.0) L Red Cell Distribution Width 15.9 % (11.6-14.8) H Platelet Count 175 K/UL (150-450) Mean Platelet Volume 6.3 FL (6.5-10.1) L Neutrophils (%) (Auto) 72.4 % (45.0-75.0) Lymphocytes (%) (Auto) 13.5 % (20.0-45.0) L Monocytes (%) (Auto) 9.3 % (1.0-10.0) Eosinophils (%) (Auto) 3.9 % (0.0-3.0) H Basophils (%) (Auto) 0.9 % (0.0-2.0) Sodium Level 149 mEQ/L (135-145) H Potassium Level 3.7 mEQ/L (3.4-4.9) Chloride Level 96 mEQ/L (98-107) L Carbon Dioxide Level 40 mEQ/L (20-30) H Anion Gap 13 (5-15) Blood Urea Nitrogen 42 mg/dL (7-23) H Creatinine 1.4 mg/dL (0.5-0.9) H Estimat Glomerular Filtration Rate mL/min (>60) Glucose Level 118 mg/dL (74-106) H Calcium Level 8.8 mg/dL (8.6-10.2) Phosphorus Level 3.6 mg/dL (2.5-4.8) Magnesium Level 1.8 mg/dL (1.7-2.5) Total Bilirubin 0.4 mg/dL (0.0-1.2) Aspartate Amino Transf (AST/SGOT) 15 U/L (5-40) Alanine Aminotransferase (ALT/SGPT) 8 U/L (3-33) Alkaline Phosphatase 78 U/L (35-104) Total Protein 7.2 g/dL (6.6-8.7) Albumin 3.4 g/dL (3.5-5.2) L Globulin 3.8 g/dL Albumin/Globulin Ratio 0.8 (1.0-2.7) L Arterial Blood pH 7.360 (7.350-7.450) Arterial Blood Partial Pressure CO2 88.2 mmHg (35.0-45.0) *H Arterial Blood Partial Pressure O2 361.0 mmHg (75.0-100.0) H Arterial Blood HCO3 48.8 mmol/L (22.0-26.0) H Arterial Blood Oxygen Saturation 99.3 % (92.0-98.0) H Arterial Blood Base Excess 20.1 Mike Test Positive Current Medications Medications (Trade) Dose Ordered Sig/Kalyn Route PRN Reason Start Time Stop Time Status Last Admin Dose Admin Acetaminophen (Tylenol) 650 mg Q4H PRN NG Fever/Headache/Mild Pain 04/16/16 13:00 05/16/16 12:59 Artificial Tears (Akwa-Tears) 2 drop Q2H PRN BOTH EYES Dry Eyes 04/16/16 13:00 05/16/16 12:59 Calcium Carbonate (Calcium Carbonate) 1,300 mg THREE TIMES A DAY NG 04/16/16 13:00 05/16/16 12:59 04/17/16 12:23 Dextrose (Dextrose 50%) STAT PRN IV Hypoglycemia 04/16/16 13:00 05/16/16 12:59 Digoxin (Lanoxin) 0.125 mg DAILY NG 04/17/16 09:00 05/17/16 08:59 04/17/16 08:35 Diltiazem HCl (Cardizem) 30 mg EVERY 8 HOURS NG 04/16/16 14:00 05/16/16 13:59 04/17/16 14:00 Furosemide (Lasix) 80 mg EVERY 12 HOURS ORAL 04/16/16 21:00 05/16/16 20:59 04/17/16 08:34 Heparin Sodium (Porcine) (Heparin 5000 units/ml) 5,000 units EVERY 12 HOURS SUBQ 04/16/16 21:00 05/16/16 20:59 04/17/16 08:35 Insulin Aspart (NovoLOG) EVERY 6 HOURS SUBQ 04/16/16 18:00 05/16/16 17:59 04/17/16 12:23 Lorazepam (Ativan 2mg/ml 1ml) 0.5 mg Q4H PRN IV For Anxiety 04/16/16 13:00 04/23/16 12:59 Morphine Sulfate (Morphine Sulfate) 4 mg Q4H PRN IVP PAIN 404/16/16 13:00 04/23/16 12:59 04/16/16 23:07 Nystatin (Nystop Powder) 1 applic THREE TIMES A DAY TOPIC 04/16/16 13:00 05/16/16 12:59 04/17/16 12:23 Ondansetron HCl (Zofran) 4 mg Q6H PRN IVP Nausea & Vomiting 04/16/16 13:00 05/16/16 12:59 Pantoprazole (Protonix) 40 mg DAILY IV 04/17/16 09:00 05/17/16 08:59 04/17/16 08:35 Polyethylene Glycol (Miralax) 17 gm DAILYPRN PRN GT Constipation 04/16/16 13:00 05/16/16 12:59 Vitamin D (Vitamin D) 5,000 intlu DAILY GT 04/17/16 09:00 05/17/16 08:59 04/17/16 08:34 LINDSEY HILL M.D. Apr 17, 2016 16:05
[2016-04-17 16:24] LABS: APPEARANCE,URINE SLIGHTLY CLOUDY; KETONES,URINE NEGATIVE (NEGATIVE); LEUKOCYTE ESTERASE ,URINE 3+ (NEGATIVE); NITRITE,URINE NEGATIVE (NEGATIVE); PH,URINE 5 (4.5-8.0); PROTEIN,URINE 4+ (NEGATIVE); UROBILINOGEN,URINE NORMAL MG/DL (0.0-1.0)
[2016-04-17 16:33] LABS: BACTERIA,URINE MODERATE /HPF; RBC,URINE 15-20 /HPF (0 - 2); SQUAMOUS EPITHELIAL CELL,UR FEW /LPF (NONE/OCC)
[2016-04-17 16:34] LABS: AMORPHOUS SEDIMENT,UR FEW /LPF; YEAST,URINE FEW /HPF
--- NOTE | 2016-04-17 17:25 | General Progress Note ---
Assessment/Plan Assessment/Plan Diagnosis 1. Acute hypoxemic and hypercapnic respiratory failure requiring intubation. 2. Acute kidney injury. 3. Morbid obesity. 4. Hypokalemia 5. Diabetes mellitus. 6. Congestive heart failure. 7. Chronic obstructive pulmonary disease exacerbation 8. Pulmonary hypertension. 9. severe edema/anasarca 10. Acute anemia 11. Acute diastolic heart failure 12. left lower extremity cellulitis 13. Pneumonia 14. s/p extubation on 04/14/16 now on BiPap plan: -transfered out of ICU on 04/16/16 -continue present care -daily labs -Biapap per Dr. Rene -finished course of IV antibiotics, monitor off abx per Dr. Milan -nephrology input appreciated -cardiology input appreciated -type and cross match for one unit of PRBC -continue lasix 80 mg po bid, I's and O's -continuept/ot out of bed to cardiac chair will request social work consult for snf, patient does not want to go back to [facility] at this time discussed with Nurse FULL code Subjective Date patient seen: Apr 17, 2016 Time patient seen: 17:22 Allergies: Coded Allergies: AMOXICILLIN (Verified Allergy, Mild, RASH, 12/25/09) PENICILLINS (Unverified Allergy, Unknown, 04/06/16) Subjective patient seen in ICU Objective Last 24 Hour Vital Signs Date Time Temp Pulse Resp B/P Pulse Ox O2 Delivery O2 Flow Rate FiO2 04/17/16 16:00 96.8 68 20 129/55 98 Venturi Mask 55 04/17/16 14:00 60 140/77 04/17/16 13:05 75 18 98 Facial 50 04/17/16 12:00 97.3 69 21 145/61 100 Bi-pap 50 04/17/16 12:00 69 04/17/16 10:38 66 18 98 Facial 50 04/17/16 09:07 65 20 98 Facial 50 04/17/16 08:35 77 04/17/16 08:00 65 04/17/16 08:00 97.7 62 24 113/81 97 Venturi Mask 55 04/17/16 07:28 98 Venturi Mask 14.0 55 04/17/16 07:28 Venturi Mask 14.0 55 04/17/16 06:18 89 138/72 04/17/16 05:03 89 16 100 04/17/16 04:00 97.0 74 24 141/66 100 Non-Rebreather 04/17/16 04:00 73 04/17/16 02:59 66 16 94 04/17/16 01:20 79 16 96 04/17/16 00:00 97.9 63 24 138/72 100 Non-Rebreather 04/17/16 00:00 59 04/16/16 23:00 73 14 96 04/16/16 21:39 65 160/60 04/16/16 21:30 72 16 98 04/16/16 20:00 63 04/16/16 20:00 96.8 64 20 152/72 100 Nasal Cannula 04/16/16 19:30 65 16 100 Intake and Output 04/16/16 04/17/16 19:00 07:00 Intake Total 530 ml 320 ml Output Total 600 ml 300 ml Balance -70 ml 20 ml Free Water 100 ml 50 ml Tube Feeding 350 ml 210 ml Blood Product 50 ml Other 30 ml 60 ml Output Urine Total 600 ml 300 ml Laboratory Tests 04/17/16 04:00: White Blood Count 5.4, Red Blood Count 3.15L, Hemoglobin 8.5L, Hematocrit 28.9L , Mean Corpuscular Volume 92, Mean Corpuscular Hemoglobin 27.1, Mean Corpuscular Hemoglobin Concent 29.6L, Red Cell Distribution Width 15.9H, Platelet Count 175, Mean Platelet Volume 6.3L, Neutrophils (%) (Auto) 72.4, Lymphocytes (%) (Auto) 13.5L, Monocytes (%) (Auto) 9.3, Eosinophils (%) (Auto) 3.9H, Basophils (%) (Auto) 0.9, Sodium Level 149H, Potassium Level 3.7, Chloride Level 96L, Carbon Dioxide Level 40H, Anion Gap 13, Blood Urea Nitrogen 42H, Creatinine 1.4H, Estimat Glomerular Filtration Rate , Glucose Level 118H, Calcium Level 8.8, Phosphorus Level 3.6, Magnesium Level 1.8, Total Bilirubin 0.4, Aspartate Amino Transf (AST/SGOT) 15, Alanine Aminotransferase (ALT/SGPT) 8 , Alkaline Phosphatase 78, Total Protein 7.2, Albumin 3.4L, Globulin 3.8, Albumin/Globulin Ratio 0.8L 04/17/16 06:00: Arterial Blood pH 7.360, Arterial Blood Partial Pressure CO2 88.2*H, Arterial Blood Partial Pressure O2 361.0H, Arterial Blood HCO3 48.8H, Arterial Blood Oxygen Saturation 99.3H, Arterial Blood Base Excess 20.1, Mike Test Positive 04/17/16 16:00: Urine Color Pale yellow, Urine Appearance Slightly cloudy, Urine pH 5, Urine Specific [place] 1.010, Urine Protein 4+H, Urine Glucose (UA) Negative, Urine Ketones Negative, Urine Occult Blood 5+H, Urine Nitrite Negative, Urine Bilirubin Negative, Urine Urobilinogen Normal, Urine Leukocyte Esterase 3+H, Urine RBC 15-20H, Urine WBC 10-15H, Urine Squamous Epithelial Cells Few, Urine Amorphous Sediment FewH, Urine Bacteria ModerateH, Urine Yeast FewH Height (Feet): 5 Height (Inches): 8.00 Weight (Pounds): 350 General Appearance: WD/WN, alert, morbidly obese EENT: PERRL/EOMI, normal ENT inspection Neck: non-tender Cardiovascular: normal peripheral pulses, irregularly irregular Respiratory/Chest: chest wall non-tender, lungs clear, no respiratory distress , no accessory muscle use Abdomen: normal bowel sounds, non tender, soft Extremities: swelling Edema: no edema noted Arm (L), no edema noted Arm (R), 1+ Leg (L), 1+ Leg (R), 1+ Pedal (L), 1+ Pedal (R), 1+ Generalized Edema: moderate edema 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
[2016-04-17 20:00] VITALS: BP 127/68
[2016-04-17] MEDS ORDERED: NS 275ml ONE (21:44)
[2016-04-18] VITALS: BP 124/75
[2016-04-18] MEDS: NovoLOG Insulin Flexpen SUBQ SCH ×5 (00:08→22:40)
[2016-04-18] MEDS: Morphine Sulfate 4mg/ml Inj IVP PRN ×2 (01:50→20:22)
[2016-04-18 04:00] VITALS: BP 151/80
[2016-04-18 06:07] LABS: BASOPHILS % (AUTO) 0.6 % (0.0-2.0); EOSINOPHILS % (AUTO) 2.5 % (0.0-3.0); LYMPHOCYTES % (AUTO) 10.1 % (20.0-45.0); MEAN CORPUSCULAR HEMOGLOBIN 26.8 PG (27.0-31.0); MEAN CORPUSCULAR HGB CONC 29.1 G/DL (32.0-36.0); MEAN CORPUSCULAR VOLUME 92 FL (80-99); MEAN PLATELET VOLUME 6.1 FL (6.5-10.1); MONOCYTES % (AUTO) 7.2 % (1.0-10.0); NEUTROPHILS % (AUTO) 79.5 % (45.0-75.0); PLATELET COUNT 191 K/UL (150-450); RED BLOOD COUNT 3.09 M/UL (4.20-5.40); RED CELL DISTRIBUTION WIDTH 16.5 % (11.6-14.8); WHITE BLOOD COUNT 5.7 K/UL (4.8-10.8)
[2016-04-18 07:28] LABS: ALANINE AMINOTRANSFERASE 8 U/L (3-33); ALBUMIN/GLOBULIN RATIO 0.9 (1.0-2.7); ASPARTATE AMINO TRANSFERASE 13 U/L (5-40); CALCIUM 9.1 mg/dL (8.6-10.2); CHLORIDE 94 mEQ/L (98-107); CREATININE 1.5 mg/dL (0.5-0.9); HEMOLYSIS 0; POTASSIUM 3.8 mEQ/L (3.4-4.9); SODIUM 147 mEQ/L (135-145); TOTAL PROTEIN 7.4 g/dL (6.6-8.7)
[2016-04-18 07:35] LABS: ANION GAP 10 (5-15)
[2016-04-18 07:51] LABS: CARBON DIOXIDE 43 mEQ/L (20-30)
[2016-04-18 08:00] VITALS: BP 137/73
--- NOTE | 2016-04-18 09:00 | Infectious Diseases Prog Note ---
Assessment/Plan Assessment/Plan A: Sepsis Pneumonia Hypercapnic respiratory failure Morbid obesity Anemia Chronic kidney disease P: Continue Zyvox Subjective ROS Limited/Unobtainable: No Constitutional: Reports: no symptoms Respiratory: Reports: shortness of breath Musculoskeletal: Reports: other - left arm, pain Allergies: Coded Allergies: AMOXICILLIN (Verified Allergy, Mild, RASH, 12/25/09) PENICILLINS (Unverified Allergy, Unknown, 04/06/16) Objective Vital Signs Last 24 Hour Vital Signs Date Time Temp Pulse Resp B/P Pulse Ox O2 Delivery O2 Flow Rate FiO2 04/18/16 08:00 70 04/18/16 07:54 Venturi Mask 14.0 55 04/18/16 07:54 93 Venturi Mask 14.0 55 04/18/16 06:09 70 150/80 04/18/16 04:00 65 04/18/16 04:00 98.2 70 20 151/80 98 Venturi Mask 55 04/18/16 00:00 76 04/18/16 00:00 98.0 60 20 124/75 95 Venturi Mask 55 04/17/16 21:53 70 127/68 04/17/16 20:00 64 04/17/16 20:00 98.2 67 24 127/68 94 Venturi Mask 04/17/16 19:28 Venturi Mask 14.0 55 04/17/16 19:28 96 Venturi Mask 14.0 55 04/17/16 16:00 70 04/17/16 16:00 96.8 68 20 129/55 98 Venturi Mask 55 04/17/16 14:00 60 140/77 04/17/16 13:05 75 18 98 Facial 50 04/17/16 12:00 97.3 69 21 145/61 100 Bi-pap 50 04/17/16 12:00 69 04/17/16 11:00 82 18 100 04/17/16 10:38 66 18 98 Facial 50 04/17/16 09:07 65 20 98 Facial 50 Height (Feet): 5 Height (Inches): 8.00 Weight (Pounds): 350 General Appearance: other - obese HEENT: mucous membranes moist Respiratory/Chest: lungs clear, other - O2 by mask Abdomen: soft, non tender Extremities: other - left arm PICC line, R leg edema Skin: other - erthema of R christian Neurologic/Psychiatric: alert, responsive Microbiology Date/Time Source Procedure Growth Status 04/16/16 04:00 Indwelling Cath Urine Culture - Final Enterococcus Faecium - Vre Complete Laboratory Tests Test 04/17/16 16:00 04/18/16 05:10 Urine Color Pale yellow Urine Appearance Slightly cloudy Urine pH 5 (4.5-8.0) Urine Specific [employer] 1.010 (1.005-1.035) Urine Protein 4+ (NEGATIVE) H Urine Glucose (UA) Negative (NEGATIVE) Urine Ketones Negative (NEGATIVE) Urine Occult Blood 5+ (NEGATIVE) H Urine Nitrite Negative (NEGATIVE) Urine Bilirubin Negative (NEGATIVE) Urine Urobilinogen Normal MG/DL (0.0-1.0) Urine Leukocyte Esterase 3+ (NEGATIVE) H Urine RBC 15-20 /HPF (0 - 2) H Urine WBC 10-15 /HPF (0 - 2) H Urine Squamous Epithelial Cells Few /LPF (NONE/OCC) Urine Amorphous Sediment Few /LPF (NONE) H Urine Bacteria Moderate /HPF (NONE) H Urine Yeast Few /HPF (NONE) H White Blood Count 5.7 K/UL (4.8-10.8) Red Blood Count 3.09 M/UL (4.20-5.40) L Hemoglobin 8.3 G/DL (12.0-16.0) L Hematocrit 28.5 % (37.0-47.0) L Mean Corpuscular Volume 92 FL (80-99) Mean Corpuscular Hemoglobin 26.8 PG (27.0-31.0) L Mean Corpuscular Hemoglobin Concent 29.1 G/DL (32.0-36.0) L Red Cell Distribution Width 16.5 % (11.6-14.8) H Platelet Count 191 K/UL (150-450) Mean Platelet Volume 6.1 FL (6.5-10.1) L Neutrophils (%) (Auto) 79.5 % (45.0-75.0) H Lymphocytes (%) (Auto) 10.1 % (20.0-45.0) L Monocytes (%) (Auto) 7.2 % (1.0-10.0) Eosinophils (%) (Auto) 2.5 % (0.0-3.0) Basophils (%) (Auto) 0.6 % (0.0-2.0) Sodium Level 147 mEQ/L (135-145) H Potassium Level 3.8 mEQ/L (3.4-4.9) Chloride Level 94 mEQ/L (98-107) L Carbon Dioxide Level 43 mEQ/L (20-30) *H Anion Gap 10 (5-15) Blood Urea Nitrogen 44 mg/dL (7-23) H Creatinine 1.5 mg/dL (0.5-0.9) H Estimat Glomerular Filtration Rate mL/min (>60) Glucose Level 152 mg/dL (74-106) H Calcium Level 9.1 mg/dL (8.6-10.2) Total Bilirubin 0.5 mg/dL (0.0-1.2) Aspartate Amino Transf (AST/SGOT) 13 U/L (5-40) Alanine Aminotransferase (ALT/SGPT) 8 U/L (3-33) Alkaline Phosphatase 81 U/L (35-104) Total Protein 7.4 g/dL (6.6-8.7) Albumin 3.6 g/dL (3.5-5.2) Globulin 3.8 g/dL Albumin/Globulin Ratio 0.9 (1.0-2.7) L Current Medications Medications (Trade) Dose Ordered Sig/Kalyn Route PRN Reason Start Time Stop Time Status Last Admin Dose Admin Acetaminophen (Tylenol) 650 mg Q4H PRN NG Fever/Headache/Mild Pain 04/16/16 13:00 05/16/16 12:59 Artificial Tears (Akwa-Tears) 2 drop Q2H PRN BOTH EYES Dry Eyes 04/16/16 13:00 05/16/16 12:59 Calcium Carbonate (Calcium Carbonate) 1,300 mg THREE TIMES A DAY NG 04/16/16 13:00 05/16/16 12:59 04/17/16 18:00 Dextrose (Dextrose 50%) STAT PRN IV Hypoglycemia 04/16/16 13:00 05/16/16 12:59 Digoxin (Lanoxin) 0.125 mg DAILY NG 04/17/16 09:00 05/17/16 08:59 04/17/16 08:35 Diltiazem HCl (Cardizem) 30 mg EVERY 8 HOURS NG 04/16/16 14:00 05/16/16 13:59 04/18/16 06:09 Furosemide (Lasix) 80 mg EVERY 12 HOURS ORAL 3/10/17 21:00 05/16/16 20:59 04/17/16 21:42 Heparin Sodium (Porcine) (Heparin 5000 units/ml) 5,000 units EVERY 12 HOURS SUBQ 04/16/16 21:00 05/16/16 20:59 04/17/16 21:44 Insulin Aspart (NovoLOG) EVERY 6 HOURS SUBQ 04/16/16 18:00 05/16/16 17:59 04/18/16 06:15 Linezolid (Zyvox) 600 mg EVERY 12 HOURS ORAL 04/17/16 21:00 04/22/16 20:59 04/17/16 21:42 Lorazepam (Ativan 2mg/ml 1ml) 0.5 mg Q4H PRN IV For Anxiety 04/16/16 13:00 04/23/16 12:59 Morphine Sulfate (Morphine Sulfate) 4 mg Q4H PRN IVP PAIN 4-10 04/16/16 13:00 04/23/16 12:59 04/18/16 01:50 Nystatin (Nystop Powder) 1 applic THREE TIMES A DAY TOPIC 04/16/16 13:00 05/16/16 12:59 04/17/16 18:00 Ondansetron HCl (Zofran) 4 mg Q6H PRN IVP Nausea & Vomiting 04/16/16 13:00 05/16/16 12:59 Pantoprazole (Protonix) 40 mg DAILY IV 04/17/16 09:00 05/17/16 08:59 04/17/16 08:35 Polyethylene Glycol (Miralax) 17 gm DAILYPRN PRN GT Constipation 04/16/16 13:00 05/16/16 12:59 Vitamin D (Vitamin D) 5,000 intlu DAILY GT 04/17/16 09:00 05/17/16 08:59 04/17/16 08:34 CARY ESTES Apr 18, 2016 09:00
[2016-04-18] MEDS: Furosemide 80mg tab ORAL SCH ×2 (09:04→20:21)
[2016-04-18] MEDS: Calcium Carbonate 650mg Tab NG SCH ×2 (09:04→13:57)
[2016-04-18] MEDS: Pantoprazole Inj IV SCH (09:04)
[2016-04-18] MEDS: Digoxin Elixir 0.125mg NG SCH (09:04)
[2016-04-18] MEDS: Vitamin D 1000 IU Tab GT SCH (09:05)
[2016-04-18] MEDS: Heparin 5000 units/ml inj SUBQ SCH ×2 (09:06→20:22)
[2016-04-18] MEDS: Nystatin Powder 100,000 units/gm 15gm TOPIC SCH ×3 (09:08→19:06)
--- NOTE | 2016-04-18 09:51 | Diagnostic Imaging Report ---
Indication: DYSPNEA Technique: XRAY CHEST 1 V Comparison:04/17/2016 Findings: The heart remains enlarged. Pulmonary vascular redistribution is present. There may be a small right pleural effusion. No significant change from previous exam. Impression: Congestive heart failure with possible right pleural effusion, unchanged from prior study.
--- NOTE | 2016-04-18 10:01 | General Progress Note ---
Assessment/Plan Status: stable - from renal stand Status Narrative retaining CO2 Assessment/Plan status: Acute renal failure- Cr lower Acute Respiratory Failure, now extubated Anemia Morbid Obesity CHF ? Sepsis Plan: post extubation care K supplement Stop IV fluid Calcium supplements with Vit D on board- Optimize cardiac and pulmonary status- Avoid Nephrotoxics- monitor renal parameters Urine studies- Keep BP over 100 syst Antibiotics Subjective ROS Limited/Unobtainable: No Constitutional: Reports: malaise, weakness Allergies: Coded Allergies: AMOXICILLIN (Verified Allergy, Mild, RASH, 12/25/09) PENICILLINS (Unverified Allergy, Unknown, 04/06/16) Objective Last 24 Hour Vital Signs Date Time Temp Pulse Resp B/P Pulse Ox O2 Delivery O2 Flow Rate FiO2 04/18/16 09:04 70 04/18/16 08:00 70 04/18/16 07:54 Venturi Mask 14.0 55 04/18/16 07:54 93 Venturi Mask 14.0 55 04/18/16 06:09 70 150/80 04/18/16 04:00 65 04/18/16 04:00 98.2 70 20 151/80 98 Venturi Mask 55 04/18/16 00:00 76 04/18/16 00:00 98.0 60 20 124/75 95 Venturi Mask 55 04/17/16 21:53 70 127/68 04/17/16 20:00 64 04/17/16 20:00 98.2 67 24 127/68 94 Venturi Mask 04/17/16 19:28 Venturi Mask 14.0 55 04/17/16 19:28 96 Venturi Mask 14.0 55 04/17/16 16:00 70 04/17/16 16:00 96.8 68 20 129/55 98 Venturi Mask 55 04/17/16 14:00 60 140/77 04/17/16 13:05 75 18 98 Facial 50 04/17/16 12:00 97.3 69 21 145/61 100 Bi-pap 50 04/17/16 12:00 69 04/17/16 11:00 82 18 100 04/17/16 10:38 66 18 98 Facial 50 Intake and Output 04/17/16 04/18/16 19:00 07:00 Intake Total 240 ml 300 ml Output Total 400 ml Balance 240 ml -100 ml Intake Oral 240 ml 300 ml Output Urine Total 400 ml Laboratory Tests 04/17/16 16:00: Urine Color Pale yellow, Urine Appearance Slightly cloudy, Urine pH 5, Urine Specific [place] 1.010, Urine Protein 4+H, Urine Glucose (UA) Negative, Urine Ketones Negative, Urine Occult Blood 5+H, Urine Nitrite Negative, Urine Bilirubin Negative, Urine Urobilinogen Normal, Urine Leukocyte Esterase 3+H, Urine RBC 15-20H, Urine WBC 10-15H, Urine Squamous Epithelial Cells Few, Urine Amorphous Sediment FewH, Urine Bacteria ModerateH, Urine Yeast FewH 04/18/16 05:10: White Blood Count 5.7, Red Blood Count 3.09L, Hemoglobin 8.3L, Hematocrit 28.5L , Mean Corpuscular Volume 92, Mean Corpuscular Hemoglobin 26.8L, Mean Corpuscular Hemoglobin Concent 29.1L, Red Cell Distribution Width 16.5H, Platelet Count 191, Mean Platelet Volume 6.1L, Neutrophils (%) (Auto) 79.5H, Lymphocytes (%) (Auto) 10.1L, Monocytes (%) (Auto) 7.2, Eosinophils (%) (Auto) 2.5, Basophils (%) (Auto) 0.6, Sodium Level 147H, Potassium Level 3.8, Chloride Level 94L, Carbon Dioxide Level 43*H, Anion Gap 10, Blood Urea Nitrogen 44H, Creatinine 1.5H, Estimat Glomerular Filtration Rate , Glucose Level 152H, Calcium Level 9.1, Total Bilirubin 0.5, Aspartate Amino Transf (AST/SGOT) 13, Alanine Aminotransferase (ALT/SGPT) 8, Alkaline Phosphatase 81, Total Protein 7.4, Albumin 3.6, Globulin 3.8, Albumin/Globulin Ratio 0.9L Height (Feet): 5 Height (Inches): 8.00 Weight (Pounds): 350 General Appearance: other - on O2 Mask Cardiovascular: normal rate Respiratory/Chest: decreased breath sounds Abdomen: other - obese Objective other PE not changed COURTNEY LOPEZ Apr 18, 2016 10:01
[2016-04-18 12:00] VITALS: BP 141/72
--- NOTE | 2016-04-18 14:34 | Cardiac Electrophysiology PN ---
Assessment/Plan Assessment/Plan 1. S/P Respiratory failure, due to chronic obstructive pulmonary disease and volume overload. On BIPAP. Echocardiogram EF 55% to 60%.On Lasix 80 po BID. 2. Atrial fibrillation, rate controlled on Dig 0.125 and Cardizem 30 mg T.I.D. 3. HTN On Lasix and Cardizem. 4. Lower extremity cellulitis, on IV antibiotics with vancomycin and aztreonam. 5. Morbid obesity. 6. CKD creatinine 1.5 7. DNI DW RN Subjective Subjective On BIPAP in [place], alert and responsive. Atrial Fib rate controlled . RN at bedside. Objective Last 24 Hour Vital Signs Date Time Temp Pulse Resp B/P Pulse Ox O2 Delivery O2 Flow Rate FiO2 04/18/16 13:30 80 141/72 04/18/16 12:18 80 24 100 Facial 50 04/18/16 12:00 71 04/18/16 12:00 96.6 67 20 141/72 98 04/18/16 09:04 70 04/18/16 08:00 97.9 63 20 137/73 98 Venturi Mask 55 04/18/16 08:00 70 04/18/16 07:54 Venturi Mask 14.0 55 04/18/16 07:54 93 Venturi Mask 14.0 55 04/18/16 06:09 70 150/80 04/18/16 04:00 65 04/18/16 04:00 98.2 70 20 151/80 98 Venturi Mask 55 04/18/16 00:00 76 04/18/16 00:00 98.0 60 20 124/75 95 Venturi Mask 55 04/17/16 21:53 70 127/68 04/17/16 20:00 64 04/17/16 20:00 98.2 67 24 127/68 94 Venturi Mask 04/17/16 19:28 Venturi Mask 14.0 55 04/17/16 19:28 96 Venturi Mask 14.0 55 04/17/16 16:00 70 04/17/16 16:00 96.8 68 20 129/55 98 Venturi Mask 55 Intake and Output 04/17/16 04/18/16 19:00 07:00 Intake Total 240 ml 300 ml Output Total 400 ml Balance 240 ml -100 ml Intake Oral 240 ml 300 ml Output Urine Total 400 ml Laboratory Tests Test 04/17/16 16:00 04/18/16 05:10 Urine Color Pale yellow Urine Appearance Slightly cloudy Urine pH 5 (4.5-8.0) Urine Specific [place] 1.010 (1.005-1.035) Urine Protein 4+ (NEGATIVE) H Urine Glucose (UA) Negative (NEGATIVE) Urine Ketones Negative (NEGATIVE) Urine Occult Blood 5+ (NEGATIVE) H Urine Nitrite Negative (NEGATIVE) Urine Bilirubin Negative (NEGATIVE) Urine Urobilinogen Normal MG/DL (0.0-1.0) Urine Leukocyte Esterase 3+ (NEGATIVE) H Urine RBC 15-20 /HPF (0 - 2) H Urine WBC 10-15 /HPF (0 - 2) H Urine Squamous Epithelial Cells Few /LPF (NONE/OCC) Urine Amorphous Sediment Few /LPF (NONE) H Urine Bacteria Moderate /HPF (NONE) H Urine Yeast Few /HPF (NONE) H White Blood Count 5.7 K/UL (4.8-10.8) Red Blood Count 3.09 M/UL (4.20-5.40) L Hemoglobin 8.3 G/DL (12.0-16.0) L Hematocrit 28.5 % (37.0-47.0) L Mean Corpuscular Volume 92 FL (80-99) Mean Corpuscular Hemoglobin 26.8 PG (27.0-31.0) L Mean Corpuscular Hemoglobin Concent 29.1 G/DL (32.0-36.0) L Red Cell Distribution Width 16.5 % (11.6-14.8) H Platelet Count 191 K/UL (150-450) Mean Platelet Volume 6.1 FL (6.5-10.1) L Neutrophils (%) (Auto) 79.5 % (45.0-75.0) H Lymphocytes (%) (Auto) 10.1 % (20.0-45.0) L Monocytes (%) (Auto) 7.2 % (1.0-10.0) Eosinophils (%) (Auto) 2.5 % (0.0-3.0) Basophils (%) (Auto) 0.6 % (0.0-2.0) Sodium Level 147 mEQ/L (135-145) H Potassium Level 3.8 mEQ/L (3.4-4.9) Chloride Level 94 mEQ/L (98-107) L Carbon Dioxide Level 43 mEQ/L (20-30) *H Anion Gap 10 (5-15) Blood Urea Nitrogen 44 mg/dL (7-23) H Creatinine 1.5 mg/dL (0.5-0.9) H Estimat Glomerular Filtration Rate mL/min (>60) Glucose Level 152 mg/dL (74-106) H Calcium Level 9.1 mg/dL (8.6-10.2) Total Bilirubin 0.5 mg/dL (0.0-1.2) Aspartate Amino Transf (AST/SGOT) 13 U/L (5-40) Alanine Aminotransferase (ALT/SGPT) 8 U/L (3-33) Alkaline Phosphatase 81 U/L (35-104) Total Protein 7.4 g/dL (6.6-8.7) Albumin 3.6 g/dL (3.5-5.2) Globulin 3.8 g/dL Albumin/Globulin Ratio 0.9 (1.0-2.7) L Microbiology Date/Time Source Procedure Growth Status 04/17/16 16:00 Urine,Clean Catch Urine Culture - Preliminary NO GROWTH Resulted 04/16/16 04:00 Indwelling Cath Urine Culture - Final Enterococcus Faecium - Vre Complete Objective HEAD AND NECK: No JVD LUNGS: Coarse rhonchi bilaterally. CARDIOVASCULAR: Irregularly irregular S1 and S2 with no gallop or murmur. ABDOMEN: Morbidly obese. EXTREMITIES: 1+ pitting edema.Left leg cellulitis. JOHN NUÑEZ Apr 18, 2016 14:34
--- NOTE | 2016-04-18 16:40 | General Progress Note ---
Assessment/Plan Assessment/Plan Diagnosis 1. Acute hypoxemic and hypercapnic respiratory failure requiring intubation. 2. Acute kidney injury. 3. Morbid obesity. 4. Hypokalemia 5. Diabetes mellitus. 6. Congestive heart failure. 7. Chronic obstructive pulmonary disease exacerbation 8. Pulmonary hypertension. 9. severe edema/anasarca 10. Acute anemia 11. Acute diastolic heart failure 12. left lower extremity cellulitis 13. Pneumonia 14. s/p extubation on 04/14/16 now on BiPap 15. dysuria plan: -transfered out of ICU on 04/16/16 -continue present care -daily labs -Biapap per Dr. Rene -finished course of IV antibiotics, monitor off abx per Dr. Milan -nephrology input appreciated -cardiology input appreciated -type and cross match for one unit of PRBC -continue lasix 80 mg po bid, I's and O's -continuept/ot out of bed to cardiac chair -change pichardo, urinalysis and urine culture will request social work consult for sn[facility], patient does not want to go back to [facility] at this time discussed with Nurse FULL code Subjective Date patient seen: Apr 18, 2016 Time patient seen: 16:38 Genitourinary: Reports: burning Allergies: Coded Allergies: AMOXICILLIN (Verified Allergy, Mild, RASH, 12/25/09) PENICILLINS (Unverified Allergy, Unknown, 04/06/16) Subjective patient seen in ICU Objective Last 24 Hour Vital Signs Date Time Temp Pulse Resp B/P Pulse Ox O2 Delivery O2 Flow Rate FiO2 04/18/16 13:30 80 141/72 04/18/16 12:18 80 24 100 Facial 50 04/18/16 12:00 71 04/18/16 12:00 96.6 67 20 141/72 98 04/18/16 09:04 70 04/18/16 08:00 97.9 63 20 137/73 98 Venturi Mask 55 04/18/16 08:00 70 04/18/16 07:54 Venturi Mask 14.0 55 04/18/16 07:54 93 Venturi Mask 14.0 55 04/18/16 06:09 70 150/80 04/18/16 04:00 65 04/18/16 04:00 98.2 70 20 151/80 98 Venturi Mask 55 04/18/16 00:00 76 04/18/16 00:00 98.0 60 20 124/75 95 Venturi Mask 55 04/17/16 21:53 70 127/68 04/17/16 20:00 64 04/17/16 20:00 98.2 67 24 127/68 94 Venturi Mask 04/17/16 19:28 Venturi Mask 14.0 55 04/17/16 19:28 96 Venturi Mask 14.0 55 Intake and Output 04/17/16 04/18/16 19:00 07:00 Intake Total 240 ml 300 ml Output Total 400 ml Balance 240 ml -100 ml Intake Oral 240 ml 300 ml Output Urine Total 400 ml Laboratory Tests 04/18/16 05:10: White Blood Count 5.7, Red Blood Count 3.09L, Hemoglobin 8.3L, Hematocrit 28.5L , Mean Corpuscular Volume 92, Mean Corpuscular Hemoglobin 26.8L, Mean Corpuscular Hemoglobin Concent 29.1L, Red Cell Distribution Width 16.5H, Platelet Count 191, Mean Platelet Volume 6.1L, Neutrophils (%) (Auto) 79.5H, Lymphocytes (%) (Auto) 10.1L, Monocytes (%) (Auto) 7.2, Eosinophils (%) (Auto) 2.5, Basophils (%) (Auto) 0.6, Sodium Level 147H, Potassium Level 3.8, Chloride Level 94L, Carbon Dioxide Level 43*H, Anion Gap 10, Blood Urea Nitrogen 44H, Creatinine 1.5H, Estimat Glomerular Filtration Rate , Glucose Level 152H, Calcium Level 9.1, Total Bilirubin 0.5, Aspartate Amino Transf (AST/SGOT) 13, Alanine Aminotransferase (ALT/SGPT) 8, Alkaline Phosphatase 81, Total Protein 7.4, Albumin 3.6, Globulin 3.8, Albumin/Globulin Ratio 0.9L Height (Feet): 5 Height (Inches): 8.00 Weight (Pounds): 350 General Appearance: WD/WN, alert EENT: PERRL/EOMI Neck: normal alignment Cardiovascular: normal peripheral pulses, normal rate Respiratory/Chest: chest wall non-tender, lungs clear Abdomen: normal bowel sounds, non tender Extremities: no calf tenderness, swelling Edema: 1+ Arm (L), 1+ Arm (R), 1+ Leg (L), 1+ Leg (R), 1+ Pedal (L), 1+ Pedal ( R), 1+ Generalized Edema: mild edema Neurologic: chief of surgery II-XII grossly normal, alert, oriented x 3, responsive Skin: rash Lymphatic: normal anterior cervical (L), normal anterior cervical (R), normal axillary (L), normal axillary (R), normal inguinal (L), normal inguinal (R), normal other, normal posterior cervical (L), normal posterior cervical (R), normal submandibular (L), normal submandibular (R), normal supraclavicular (L), normal supraclavicular (R) Manny Nolan MD Apr 18, 2016 16:40
[2016-04-18 17:04] VITALS: BP 150/76
[2016-04-18] MEDS: Calcium Carbonate 650mg Tab ORAL SCH (17:46)
[2016-04-18] MEDS: Miralax 17gm pkt ORAL PRN (20:21)
[2016-04-18 21:09] VITALS: BP 158/83
--- NOTE | 2016-04-18 23:17 | Pulmonology Progress Note ---
Assessment/Plan Problems: (1) Acute respiratory failure with hypoxia and hypercarbia (2) Pneumonia (3) COPD exacerbation (4) Atrial fibrillation with RVR (5) Morbid obesity Assessment/Plan titrate bipap respiratory treatment IV lasix f/u intake and output continue antibiotics titrate fio2 to sat of 92% Subjective ROS Limited/Unobtainable: No Interval Events: on bipap most of the time Allergies: Coded Allergies: AMOXICILLIN (Verified Allergy, Mild, RASH, 12/25/09) PENICILLINS (Unverified Allergy, Unknown, 04/06/16) Objective Last 24 Hour Vital Signs Date Time Temp Pulse Resp B/P Pulse Ox O2 Delivery O2 Flow Rate FiO2 04/18/16 22:26 65 158/83 04/18/16 21:09 98.4 65 24 158/83 99 Venturi Mask 55 04/18/16 21:00 86 24 100 Facial 50 04/18/16 19:37 Venturi Mask 14.0 55 04/18/16 19:37 98 Venturi Mask 14.0 55 04/18/16 19:33 63 04/18/16 17:04 96.8 65 22 150/76 95 Venturi Mask 55 04/18/16 16:00 68 04/18/16 13:30 80 141/72 04/18/16 12:18 80 24 100 Facial 50 04/18/16 12:00 71 04/18/16 12:00 96.6 67 20 141/72 98 04/18/16 09:04 70 04/18/16 08:00 97.9 63 20 137/73 98 Venturi Mask 55 04/18/16 08:00 70 04/18/16 07:54 Venturi Mask 14.0 55 04/18/16 07:54 93 Venturi Mask 14.0 55 04/18/16 06:09 70 150/80 04/18/16 04:00 65 04/18/16 04:00 98.2 70 20 151/80 98 Venturi Mask 55 04/18/16 00:00 76 04/18/16 00:00 98.0 60 20 124/75 95 Venturi Mask 55 Intake and Output 04/17/16 04/18/16 19:00 07:00 Intake Total 240 ml 300 ml Output Total 400 ml Balance 240 ml -100 ml Intake Oral 240 ml 300 ml Output Urine Total 400 ml Objective General Appearance: WD/WN, dyspnic HEENT: normocephalic, anicteric Respiratory/Chest: chest wall non-tender, decreased breath sounds Cardiovascular: normal peripheral pulses, normal rate Abdomen: normal bowel sounds, soft, non tender Genitourinary: normal external genitalia Extremities: no cyanosis Skin: no rash Neurologic/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: 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 grossly normal Lymphatic: no neck adenopathy Microbiology Date/Time Source Procedure Growth Status 04/17/16 16:00 Urine,Clean Catch Urine Culture - Preliminary NO GROWTH Resulted 04/16/16 04:00 Indwelling Cath Urine Culture - Final Enterococcus Faecium - Vre Complete Laboratory Tests 04/18/16 05:10: White Blood Count 5.7, Red Blood Count 3.09L, Hemoglobin 8.3L, Hematocrit 28.5L , Mean Corpuscular Volume 92, Mean Corpuscular Hemoglobin 26.8L, Mean Corpuscular Hemoglobin Concent 29.1L, Red Cell Distribution Width 16.5H, Platelet Count 191, Mean Platelet Volume 6.1L, Neutrophils (%) (Auto) 79.5H, Lymphocytes (%) (Auto) 10.1L, Monocytes (%) (Auto) 7.2, Eosinophils (%) (Auto) 2.5, Basophils (%) (Auto) 0.6, Sodium Level 147H, Potassium Level 3.8, Chloride Level 94L, Carbon Dioxide Level 43*H, Anion Gap 10, Blood Urea Nitrogen 44H, Creatinine 1.5H, Estimat Glomerular Filtration Rate , Glucose Level 152H, Calcium Level 9.1, Total Bilirubin 0.5, Aspartate Amino Transf (AST/SGOT) 13, Alanine Aminotransferase (ALT/SGPT) 8, Alkaline Phosphatase 81, Total Protein 7.4, Albumin 3.6, Globulin 3.8, Albumin/Globulin Ratio 0.9L Current Medications Medications (Trade) Dose Ordered Sig/Kalyn Route PRN Reason Start Time Stop Time Status Last Admin Dose Admin Acetaminophen (Tylenol) 650 mg Q4H PRN NG Fever/Headache/Mild Pain 04/16/16 13:00 05/16/16 12:59 Artificial Tears (Akwa-Tears) 2 drop Q2H PRN BOTH EYES Dry Eyes 04/16/16 13:00 05/16/16 12:59 Calcium Carbonate (Calcium Carbonate) 1,300 mg THREE TIMES A DAY ORAL 04/18/16 16:44 49/17 12:59 04/18/16 17:46 Dextrose (Dextrose 50%) STAT PRN IV Hypoglycemia 04/16/16 13:00 05/16/16 12:59 Digoxin (Lanoxin) 0.125 mg DAILY ORAL 04/18/16 16:44 05/17/16 08:59 Diltiazem HCl (Cardizem) 30 mg EVERY 8 HOURS ORAL 04/18/16 16:44 05/16/16 13:59 04/18/16 22:26 Furosemide (Lasix) 80 mg EVERY 12 HOURS ORAL 04/16/16 21:00 05/16/16 20:59 04/18/16 20:21 Heparin Sodium (Porcine) (Heparin 5000 units/ml) 5,000 units EVERY 12 HOURS SUBQ 04/16/16 21:00 05/16/16 20:59 04/18/16 20:22 Insulin Aspart (NovoLOG) AC+HS SUBQ 04/18/16 22:30 05/18/16 22:29 04/18/16 22:40 Linezolid (Zyvox) 600 mg EVERY 12 HOURS ORAL 04/17/16 21:00 04/22/16 20:59 04/18/16 22:26 Lorazepam (Ativan 2mg/ml 1ml) 0.5 mg Q4H PRN IV For Anxiety 04/16/16 13:00 04/23/16 12:59 Morphine Sulfate (Morphine Sulfate) 4 mg Q4H PRN IVP PAIN 4-10 04/16/16 13:00 04/23/16 12:59 04/18/16 20:22 Nystatin (Nystop Powder) 1 applic THREE TIMES A DAY TOPIC 04/16/16 13:00 05/16/16 12:59 04/18/16 19:06 Ondansetron HCl (Zofran) 4 mg Q6H PRN IVP Nausea & Vomiting 04/16/16 13:00 05/16/16 12:59 Pantoprazole (Protonix) 40 mg DAILY IV 04/17/16 09:00 05/17/16 08:59 04/18/16 09:04 Polyethylene Glycol (Miralax) 17 gm DAILYPRN PRN ORAL Constipation 04/18/16 16:45 05/16/16 12:59 04/18/16 20:21 Vitamin D (Vitamin D) 5,000 intlu DAILY ORAL 04/18/16 16:45 05/17/16 08:59 ARASH MIRANDA Apr 18, 2016 23:17
[2016-04-19] VITALS (7 sets, daily range): BP systolic 106–154; BP diastolic 54–81
[2016-04-19] MEDS: Morphine Sulfate 4mg/ml Inj IVP PRN (05:08)
[2016-04-19] MEDS: NovoLOG Insulin Flexpen SUBQ SCH ×4 (06:27→20:52)
[2016-04-19] MEDS: Pantoprazole Inj IV SCH (08:41)
[2016-04-19] MEDS: Vitamin D 1000 IU Tab ORAL SCH (08:42)
[2016-04-19] MEDS: Calcium Carbonate 650mg Tab ORAL SCH ×3 (08:42→17:24)
[2016-04-19] MEDS: Digoxin Elixir 0.125mg ORAL SCH (08:44)
[2016-04-19] MEDS: Heparin 5000 units/ml inj SUBQ SCH ×2 (08:45→20:51)
[2016-04-19] MEDS: Nystatin Powder 100,000 units/gm 15gm TOPIC SCH ×3 (08:45→19:23)
[2016-04-19] MEDS: Furosemide 80mg tab ORAL SCH ×2 (08:46→20:48)
--- NOTE | 2016-04-19 08:49 | Diagnostic Imaging Report ---
Indication: DYSPNEA Technique: XRAY CHEST 1 V Comparison:04/16/2016 Findings: Suboptimal quality due to body habitus. The heart remains enlarged. There is pulmonary vascular redistribution. Some blunting of the right costophrenic angle is noted. Left costophrenic angle is difficult to assess. Left arm PICC line remains in place. Impression: Cardiomegaly with evidence of congestive heart failure. Probable small right pleural effusion. Suboptimal study due to patient body habitus.
--- NOTE | 2016-04-19 11:02 | General Progress Note ---
Assessment/Plan Assessment/Plan Diagnosis 1. Acute hypoxemic and hypercapnic respiratory failure requiring intubation. 2. Acute kidney injury. 3. Morbid obesity. 4. Hypokalemia 5. Diabetes mellitus. 6. Congestive heart failure. 7. Chronic obstructive pulmonary disease exacerbation 8. Pulmonary hypertension. 9. severe edema/anasarca 10. Acute anemia 11. Acute diastolic heart failure 12. left lower extremity cellulitis 13. Pneumonia 14. s/p extubation on 04/14/16 now on BiPap 15. dysuria plan: -transfered out of ICU on 04/16/16 -continue present care -daily labs -Biapap per Dr. Rene -finished course of IV antibiotics, monitor off abx per Dr. Milan -nephrology input appreciated -cardiology input appreciated -type and cross match for one unit of PRBC -continue lasix 80 mg po bid, I's and O's -continuept/ot out of bed to cardiac chair -change pichardo, urinalysis and urine culture will request social work consult for [facility], patient does not want to go back to [facility] at this time discussed with Nurse FULL code Subjective Date patient seen: Apr 19, 2016 Time patient seen: 11:00 Genitourinary: Reports: burning Allergies: Coded Allergies: AMOXICILLIN (Verified Allergy, Mild, RASH, 12/25/09) PENICILLINS (Unverified Allergy, Unknown, 04/06/16) All Systems: reviewed and negative except above Objective Last 24 Hour Vital Signs Date Time Temp Pulse Resp B/P Pulse Ox O2 Delivery O2 Flow Rate FiO2 04/19/16 09:02 68 20 100 Facial 50 04/19/16 08:44 54 04/19/16 08:00 97.0 58 17 130/66 100 Bi-pap 50 04/19/16 08:00 54 04/19/16 08:00 50 04/19/16 06:43 Bi-pap 50 04/19/16 06:43 98 Bi-pap 50 04/19/16 06:43 93 17 100 Facial 50 04/19/16 06:25 64 140/88 04/19/16 05:05 89 22 100 Facial 50 04/19/16 04:00 61 04/19/16 04:00 50 04/19/16 04:00 97.0 65 17 134/71 98 Bi-pap 50 04/19/16 03:00 81 24 100 Facial 50 04/19/16 01:20 79 22 100 Facial 50 04/19/16 00:00 98.0 61 17 141/81 100 Bi-pap 50 04/19/16 00:00 57 04/19/16 00:00 50 04/18/16 23:00 83 22 100 Facial 50 04/18/16 22:26 65 158/83 04/18/16 21:09 98.4 65 24 158/83 99 Venturi Mask 55 04/18/16 21:00 86 24 100 Facial 50 04/18/16 19:37 Venturi Mask 14.0 55 04/18/16 19:37 98 Venturi Mask 14.0 55 04/18/16 19:33 63 04/18/16 17:04 96.8 65 22 150/76 95 Venturi Mask 55 04/18/16 16:00 68 04/18/16 13:30 80 141/72 04/18/16 12:18 80 24 100 Facial 50 04/18/16 12:00 71 04/18/16 12:00 96.6 67 20 141/72 98 Intake and Output 04/18/16 04/19/16 19:00 07:00 Intake Total 360 ml Output Total 950 ml Balance -590 ml Intake Oral 360 ml Output Urine Total 950 ml Height (Feet): 5 Height (Inches): 8.00 Weight (Pounds): 350 General Appearance: alert, morbidly obese EENT: PERRL/EOMI Neck: non-tender Cardiovascular: normal peripheral pulses Respiratory/Chest: decreased breath sounds Abdomen: non tender, soft Extremities: normal range of motion, swelling Edema: no edema noted Arm (L), no edema noted Arm (R), 2+ Leg (L), 2+ Leg (R), 2+ Pedal (L), 2+ Pedal (R), 2+ Generalized Edema: moderate edema Neurologic: library page II-XII grossly normal, oriented x 3 Skin: normal pigmentation Lymphatic: normal anterior cervical (L), normal anterior cervical (R), normal axillary (L), normal axillary (R), normal inguinal (L), normal inguinal (R), normal other, normal posterior cervical (L), normal posterior cervical (R), normal submandibular (L), normal submandibular (R), normal supraclavicular (L), normal supraclavicular (R) Manny Nolan MD Apr 19, 2016 11:02
--- NOTE | 2016-04-19 11:16 | Infectious Diseases Prog Note ---
Assessment/Plan Assessment/Plan A: The patient is a 75-year-old female with Leukocytosis , SP Sepsis, SP Pneumonia SCX: NL Fl LLExt Cellulitis SP probable UTI / Dysuria UCx : VRE VDRF , SP Obesity CHF HTN COPD GERD. DM PLAN: on Zyvox d# 3 / Monitor CBC Monitor BMP. Monitor renal function. Monitor CBC. Monitor chest x-ray. Subjective Constitutional: Denies: anorexia, chills, drenching sweats, fatigue, fever, no symptoms, other Allergies: Coded Allergies: AMOXICILLIN (Verified Allergy, Mild, RASH, 12/25/09) PENICILLINS (Unverified Allergy, Unknown, 04/06/16) Objective Vital Signs Last 24 Hour Vital Signs Date Time Temp Pulse Resp B/P Pulse Ox O2 Delivery O2 Flow Rate FiO2 04/19/16 09:02 68 20 100 Facial 50 04/19/16 08:44 54 04/19/16 08:00 97.0 58 17 130/66 100 Bi-pap 50 04/19/16 08:00 54 04/19/16 08:00 50 04/19/16 06:43 Bi-pap 50 04/19/16 06:43 98 Bi-pap 50 04/19/16 06:43 93 17 100 Facial 50 04/19/16 06:25 64 140/88 04/19/16 05:05 89 22 100 Facial 50 04/19/16 04:00 61 04/19/16 04:00 50 04/19/16 04:00 97.0 65 17 134/71 98 Bi-pap 50 04/19/16 03:00 81 24 100 Facial 50 04/19/16 01:20 79 22 100 Facial 50 04/19/16 00:00 98.0 61 17 141/81 100 Bi-pap 50 04/19/16 00:00 57 04/19/16 00:00 50 04/18/16 23:00 83 22 100 Facial 50 04/18/16 22:26 65 158/83 04/18/16 21:09 98.4 65 24 158/83 99 Venturi Mask 55 04/18/16 21:00 86 24 100 Facial 50 04/18/16 19:37 Venturi Mask 14.0 55 04/18/16 19:37 98 Venturi Mask 14.0 55 04/18/16 19:33 63 04/18/16 17:04 96.8 65 22 150/76 95 Venturi Mask 55 04/18/16 16:00 68 04/18/16 13:30 80 141/72 04/18/16 12:18 80 24 100 Facial 50 04/18/16 12:00 71 04/18/16 12:00 96.6 67 20 141/72 98 Height (Feet): 5 Height (Inches): 8.00 Weight (Pounds): 350 HEENT: anicteric Respiratory/Chest: no accessory muscle use Cardiovascular: no gallop/murmur Abdomen: non distended Microbiology Date/Time Source Procedure Growth Status 04/17/16 16:00 Urine,Clean Catch Urine Culture - Preliminary NO GROWTH AFTER 24 HOURS Resulted Current Medications Medications (Trade) Dose Ordered Sig/Kalyn Route PRN Reason Start Time Stop Time Status Last Admin Dose Admin Acetaminophen (Tylenol) 650 mg Q4H PRN NG Fever/Headache/Mild Pain 04/16/16 13:00 05/16/16 12:59 Artificial Tears (Akwa-Tears) 2 drop Q2H PRN BOTH EYES Dry Eyes 04/16/16 13:00 05/16/16 12:59 Calcium Carbonate (Calcium Carbonate) 1,300 mg THREE TIMES A DAY ORAL 04/18/16 16:44 05/16/16 12:59 04/19/16 08:42 Dextrose (Dextrose 50%) STAT PRN IV Hypoglycemia 04/16/16 13:00 05/16/16 12:59 Digoxin (Lanoxin) 0.125 mg DAILY ORAL 04/18/16 16:44 05/17/16 08:59 Diltiazem HCl (Cardizem) 30 mg EVERY 8 HOURS ORAL 04/18/16 16:44 05/16/16 13:59 04/19/16 06:25 Furosemide (Lasix) 80 mg EVERY 12 HOURS ORAL 04/16/16 21:00 05/16/16 20:59 04/19/16 08:46 Heparin Sodium (Porcine) (Heparin 5000 units/ml) 5,000 units EVERY 12 HOURS SUBQ 04/16/16 21:00 05/16/16 20:59 04/19/16 08:45 Insulin Aspart (NovoLOG) AC+HS SUBQ 04/18/16 22:30 05/18/16 22:29 04/19/16 06:27 Linezolid (Zyvox) 600 mg EVERY 12 HOURS ORAL 04/17/16 21:00 04/22/16 20:59 04/19/16 08:45 Lorazepam (Ativan 2mg/ml 1ml) 0.5 mg Q4H PRN IV For Anxiety 04/16/16 13:00 04/23/16 12:59 Morphine Sulfate (Morphine Sulfate) 4 mg Q4H PRN IVP PAIN 4-10 04/16/16 13:00 04/23/16 12:59 04/19/16 05:08 Nystatin (Nystop Powder) 1 applic THREE TIMES A DAY TOPIC 04/16/16 13:00 05/16/16 12:59 04/19/16 08:45 Ondansetron HCl (Zofran) 4 mg Q6H PRN IVP Nausea & Vomiting 04/16/16 13:00 05/16/16 12:59 Pantoprazole (Protonix) 40 mg DAILY IV 04/17/16 09:00 05/17/16 08:59 04/19/16 08:41 Polyethylene Glycol (Miralax) 17 gm DAILYPRN PRN ORAL Constipation 04/18/16 16:45 05/16/16 12:59 04/18/16 20:21 Vitamin D (Vitamin D) 5,000 intlu DAILY ORAL 04/18/16 16:45 05/17/16 08:59 04/19/16 08:42 LINDSEY HILL M.D. Apr 19, 2016 11:16
--- NOTE | 2016-04-19 11:19 | Pulmonology Progress Note ---
Assessment/Plan Problems: (1) Acute respiratory failure with hypoxia and hypercarbia (2) Pneumonia (3) COPD exacerbation (4) Atrial fibrillation with RVR (5) Morbid obesity Assessment/Plan titrate bipap respiratory treatment IV lasix f/u intake and output continue antibiotics titrate fio2 to sat of 92% cxr and BNP in am pt need either tracheostomy or comfort care she can not be discharged with continous BIPAP to [place] [facility] Subjective ROS Limited/Unobtainable: No Interval Events: on and off bipap Allergies: Coded Allergies: AMOXICILLIN (Verified Allergy, Mild, RASH, 12/25/09) PENICILLINS (Unverified Allergy, Unknown, 04/06/16) Objective Last 24 Hour Vital Signs Date Time Temp Pulse Resp B/P Pulse Ox O2 Delivery O2 Flow Rate FiO2 04/19/16 09:02 68 20 100 Facial 50 04/19/16 08:44 54 04/19/16 08:00 97.0 58 17 130/66 100 Bi-pap 50 04/19/16 08:00 54 04/19/16 08:00 50 04/19/16 06:43 Bi-pap 50 04/19/16 06:43 98 Bi-pap 50 04/19/16 06:43 93 17 100 Facial 50 04/19/16 06:25 64 140/88 04/19/16 05:05 89 22 100 Facial 50 04/19/16 04:00 61 04/19/16 04:00 50 04/19/16 04:00 97.0 65 17 134/71 98 Bi-pap 50 04/19/16 03:00 81 24 100 Facial 50 04/19/16 01:20 79 22 100 Facial 50 04/19/16 00:00 98.0 61 17 141/81 100 Bi-pap 50 04/19/16 00:00 57 04/19/16 00:00 50 04/18/16 23:00 83 22 100 Facial 50 04/18/16 22:26 65 158/83 04/18/16 21:09 98.4 65 24 158/83 99 Venturi Mask 55 04/18/16 21:00 86 24 100 Facial 50 04/18/16 19:37 Venturi Mask 14.0 55 04/18/16 19:37 98 Venturi Mask 14.0 55 04/18/16 19:33 63 04/18/16 17:04 96.8 65 22 150/76 95 Venturi Mask 55 04/18/16 16:00 68 04/18/16 13:30 80 141/72 04/18/16 12:18 80 24 100 Facial 50 04/18/16 12:00 71 04/18/16 12:00 96.6 67 20 141/72 98 Intake and Output 04/18/16 04/19/16 19:00 07:00 Intake Total 360 ml Output Total 950 ml Balance -590 ml Intake Oral 360 ml Output Urine Total 950 ml Objective General Appearance: WD/WN, dyspnic HEENT: normocephalic, anicteric Respiratory/Chest: chest wall non-tender, decreased breath sounds Cardiovascular: normal peripheral pulses, normal rate Abdomen: normal bowel sounds, soft, non tender Genitourinary: normal external genitalia Extremities: no cyanosis Skin: no rash Neurologic/Psychiatric: cardiac technologist II-XII grossly normal Lymphatic: no neck adenopathy Microbiology Date/Time Source Procedure Growth Status 04/17/16 16:00 Urine,Clean Catch Urine Culture - Preliminary NO GROWTH AFTER 24 HOURS Resulted Current Medications Medications (Trade) Dose Ordered Sig/Kalyn Route PRN Reason Start Time Stop Time Status Last Admin Dose Admin Acetaminophen (Tylenol) 650 mg Q4H PRN NG Fever/Headache/Mild Pain 04/16/16 13:00 05/16/16 12:59 Artificial Tears (Akwa-Tears) 2 drop Q2H PRN BOTH EYES Dry Eyes 04/16/16 13:00 05/16/16 12:59 Calcium Carbonate (Calcium Carbonate) 1,300 mg THREE TIMES A DAY ORAL 04/18/16 16:44 05/16/16 12:59 04/19/16 08:42 Dextrose (Dextrose 50%) STAT PRN IV Hypoglycemia 04/16/16 13:00 05/16/16 12:59 Digoxin (Lanoxin) 0.125 mg DAILY ORAL 04/18/16 16:44 05/17/16 08:59 Diltiazem HCl (Cardizem) 30 mg EVERY 8 HOURS ORAL 04/18/16 16:44 05/16/16 13:59 04/19/16 06:25 Furosemide (Lasix) 80 mg EVERY 12 HOURS ORAL 04/16/16 21:00 05/16/16 20:59 04/19/16 08:46 Heparin Sodium (Porcine) (Heparin 5000 units/ml) 5,000 units EVERY 12 HOURS SUBQ 04/16/16 21:00 05/16/16 20:59 04/19/16 08:45 Insulin Aspart (NovoLOG) AC+HS SUBQ 04/18/16 22:30 05/18/16 22:29 04/19/16 06:27 Linezolid (Zyvox) 600 mg EVERY 12 HOURS ORAL 04/17/16 21:00 04/22/16 20:59 04/19/16 08:45 Lorazepam (Ativan 2mg/ml 1ml) 0.5 mg Q4H PRN IV For Anxiety 04/16/16 13:00 04/23/16 12:59 Morphine Sulfate (Morphine Sulfate) 4 mg Q4H PRN IVP PAIN 404/16/16 13:00 04/23/16 12:59 04/19/16 05:08 Nystatin (Nystop Powder) 1 applic THREE TIMES A DAY TOPIC 04/16/16 13:00 05/16/16 12:59 04/19/16 08:45 Ondansetron HCl (Zofran) 4 mg Q6H PRN IVP Nausea & Vomiting 04/16/16 13:00 05/16/16 12:59 Pantoprazole (Protonix) 40 mg DAILY IV 04/17/16 09:00 05/17/16 08:59 04/19/16 08:41 Polyethylene Glycol (Miralax) 17 gm DAILYPRN PRN ORAL Constipation 04/18/16 16:45 05/16/16 12:59 04/18/16 20:21 Vitamin D (Vitamin D) 5,000 intlu DAILY ORAL 04/18/16 16:45 05/17/16 08:59 04/19/16 08:42 ARASH MIRANDA Apr 19, 2016 11:19
[2016-04-19 11:30] LABS: APPEARANCE,URINE CLOUDY; KETONES,URINE NEGATIVE (NEGATIVE); LEUKOCYTE ESTERASE ,URINE 2+ (NEGATIVE); NITRITE,URINE NEGATIVE (NEGATIVE); PH,URINE 5 (4.5-8.0); PROTEIN,URINE 3+ (NEGATIVE); UROBILINOGEN,URINE 1 MG/DL (0.0-1.0)
[2016-04-19 11:43] LABS: BACTERIA,URINE MODERATE /HPF; HYALINE CASTS, URINE 0-2 /LPF; RBC,URINE 40-60 /HPF (0 - 2); SQUAMOUS EPITHELIAL CELL,UR FEW /LPF (NONE/OCC); WBC,URINE 15-20 /HPF (0 - 2)
--- NOTE | 2016-04-19 14:15 | Wound Care Consultation ---
Wound Assessment Wound Assessment #1: Wound Present on Admission: Yes New Wound: No Status Change of Wound: No Wound Location Body Site Modif: left Wound Location Body Site: breast fold Wound Type: other - intertrigo rash Joya Test: Does not Joya Wound Thickness: Partial Thickness Wound Length: 1.0 Wound Width: 4.0 Wound Depth: 0.1 Percent of Wound [place]/Red: 100 Wound Drainage Description: Serosanguineous Wound Drainage Amount: Scant Wound Drainage Odor: None/Absent Tissue Surrounding Wound: Macerated Wound General Appearance: Reddened, Open to air Wound Assessment #2: Wound Number: #2 Wound Present on Admission: Yes New Wound: No Status Change of Wound: No Wound Location Body Site Modif: left, lower, lateral Wound Location Body Site: leg Wound Type: traumatic injury - skin tear, noted scabbing , dry clean Joya Test: Does not Joya Wound Thickness: Partial Thickness Wound Length: 0.8 Wound Width: 0.8 Percent of Wound Black/Brown: 100 - dry scab appearing intact Wound Drainage Amount: None Wound Drainage Odor: None/Absent Tissue Surrounding Wound: Intact Wound General Appearance: Clean/Dry Wound Comment #1 Left lower lateral leg skin tear- upon reassessment noted left leg skin tear with good progress, noted scab forming to site. #2 Left breast fold intertrigo rash- noted good progress to site , decrease in redness noted. upon reassessment noted good progress to affected sites, current treatment remains effective. no further deterioration noted. asked patient if i could do a complete body assessment explained risks and benefits, refused stated " they checked me yesterday i don't have anything else. " KITA ORTIZ Apr 19, 2016 14:15
--- NOTE | 2016-04-19 15:10 | Cardiac Electrophysiology PN ---
Assessment/Plan Assessment/Plan 1. Respiratory failure, due to chronic obstructive pulmonary disease and volume overload. Extubated On BIPAP. Echocardiogram EF 55% to 60%.Change Lasix to 40 iv BID. 2. Atrial fibrillation, rate controlled on Dig 0.125 and Cardizem 30 mg T.I.D. 3. HTN On Lasix and Cardizem. 4. Lower extremity cellulitis, on IV antibiotics with vancomycin and aztreonam. 5. Morbid obesity. 6. CKD creatinine 1.5 7. DNI DW RN and Dr Rene Subjective Subjective On BIPAP in [place]. Atrial Fib rate controlled . RN at bedside.On Abx. Objective Last 24 Hour Vital Signs Date Time Temp Pulse Resp B/P Pulse Ox O2 Delivery O2 Flow Rate FiO2 04/19/16 13:43 64 131/70 04/19/16 12:00 97.0 85 18 131/70 99 Venturi Mask 55 04/19/16 12:00 64 04/19/16 12:00 5.0 55 04/19/16 09:02 68 20 100 Facial 50 04/19/16 08:44 54 04/19/16 08:00 97.0 58 17 130/66 100 Bi-pap 50 04/19/16 08:00 54 04/19/16 08:00 50 04/19/16 06:43 Bi-pap 50 04/19/16 06:43 98 Bi-pap 50 04/19/16 06:43 93 17 100 Facial 50 04/19/16 06:25 64 140/88 04/19/16 05:05 89 22 100 Facial 50 04/19/16 04:00 61 04/19/16 04:00 50 04/19/16 04:00 97.0 65 17 134/71 98 Bi-pap 50 04/19/16 03:00 81 24 100 Facial 50 04/19/16 01:20 79 22 100 Facial 50 04/19/16 00:00 98.0 61 17 141/81 100 Bi-pap 50 04/19/16 00:00 57 04/19/16 00:00 50 04/18/16 23:00 83 22 100 Facial 50 04/18/16 22:26 65 158/83 04/18/16 21:09 98.4 65 24 158/83 99 Venturi Mask 55 04/18/16 21:00 86 24 100 Facial 50 04/18/16 19:37 Venturi Mask 14.0 55 04/18/16 19:37 98 Venturi Mask 14.0 55 04/18/16 19:33 63 04/18/16 17:04 96.8 65 22 150/76 95 Venturi Mask 55 04/18/16 16:00 68 Intake and Output 04/18/16 04/19/16 19:00 07:00 Intake Total 360 ml Output Total 950 ml Balance -590 ml Intake Oral 360 ml Output Urine Total 950 ml Laboratory Tests Test 04/19/16 10:45 Urine Color Yellow Urine Appearance Cloudy Urine pH 5 (4.5-8.0) Urine Specific [place] 1.015 (1.005-1.035) Urine Protein 3+ (NEGATIVE) H Urine Glucose (UA) Negative (NEGATIVE) Urine Ketones Negative (NEGATIVE) Urine Occult Blood 5+ (NEGATIVE) H Urine Nitrite Negative (NEGATIVE) Urine Bilirubin Negative (NEGATIVE) Urine Urobilinogen 1 MG/DL (0.0-1.0) H Urine Leukocyte Esterase 2+ (NEGATIVE) H Urine RBC 40-60 /HPF (0 - 2) H Urine WBC 15-20 /HPF (0 - 2) H Urine Squamous Epithelial Cells Few /LPF (NONE/OCC) Urine Bacteria Moderate /HPF (NONE) H Urine Hyaline Casts 0-2 /LPF (NONE) H Microbiology Date/Time Source Procedure Growth Status 04/17/16 16:00 Urine,Clean Catch Urine Culture - Preliminary NO GROWTH AFTER 24 HOURS Resulted Objective HEAD AND NECK: No JVD LUNGS: Coarse rhonchi bilaterally. CARDIOVASCULAR: Irregularly irregular S1 and S2 with no gallop or murmur. ABDOMEN: Morbidly obese. EXTREMITIES: 1+ pitting edema.Left leg cellulitis. JOHN NUÑEZ Apr 19, 2016 15:10
--- NOTE | 2016-04-19 15:16 | General Progress Note ---
Assessment/Plan Status: unchanged Status Narrative Cr stable 1.5 Assessment/Plan status: Acute renal failure- Cr lower Acute Respiratory Failure, now extubated Anemia Morbid Obesity CHF ? Sepsis Plan: post extubation care K supplement Stop IV fluid Calcium supplements with Vit D on board- Optimize cardiac and pulmonary status- Avoid Nephrotoxics- monitor renal parameters Urine studies- Keep BP over 100 syst Antibiotics Subjective ROS Limited/Unobtainable: No Constitutional: Reports: malaise, weakness Allergies: Coded Allergies: AMOXICILLIN (Verified Allergy, Mild, RASH, 12/25/09) PENICILLINS (Unverified Allergy, Unknown, 04/06/16) Objective Last 24 Hour Vital Signs Date Time Temp Pulse Resp B/P Pulse Ox O2 Delivery O2 Flow Rate FiO2 04/19/16 13:43 64 131/70 04/19/16 12:00 97.0 85 18 131/70 99 Venturi Mask 55 04/19/16 12:00 64 04/19/16 12:00 5.0 55 04/19/16 09:02 68 20 100 Facial 50 04/19/16 08:44 54 04/19/16 08:00 97.0 58 17 130/66 100 Bi-pap 50 04/19/16 08:00 54 04/19/16 08:00 50 04/19/16 06:43 Bi-pap 50 04/19/16 06:43 98 Bi-pap 50 04/19/16 06:43 93 17 100 Facial 50 04/19/16 06:25 64 140/88 04/19/16 05:05 89 22 100 Facial 50 04/19/16 04:00 61 04/19/16 04:00 50 04/19/16 04:00 97.0 65 17 134/71 98 Bi-pap 50 04/19/16 03:00 81 24 100 Facial 50 04/19/16 01:20 79 22 100 Facial 50 04/19/16 00:00 98.0 61 17 141/81 100 Bi-pap 50 04/19/16 00:00 57 04/19/16 00:00 50 04/18/16 23:00 83 22 100 Facial 50 04/18/16 22:26 65 158/83 04/18/16 21:09 98.4 65 24 158/83 99 Venturi Mask 55 04/18/16 21:00 86 24 100 Facial 50 04/18/16 19:37 Venturi Mask 14.0 55 04/18/16 19:37 98 Venturi Mask 14.0 55 04/18/16 19:33 63 04/18/16 17:04 96.8 65 22 150/76 95 Venturi Mask 55 04/18/16 16:00 68 Intake and Output 04/18/16 04/19/16 19:00 07:00 Intake Total 360 ml Output Total 950 ml Balance -590 ml Intake Oral 360 ml Output Urine Total 950 ml Laboratory Tests 04/19/16 10:45: Urine Color Yellow, Urine Appearance Cloudy, Urine pH 5, Urine Specific [place] 1.015, Urine Protein 3+H, Urine Glucose (UA) Negative, Urine Ketones Negative, Urine Occult Blood 5+H, Urine Nitrite Negative, Urine Bilirubin Negative, Urine Urobilinogen 1H, Urine Leukocyte Esterase 2+H, Urine RBC 40-60H, Urine WBC 15- 20H, Urine Squamous Epithelial Cells Few, Urine Bacteria ModerateH, Urine Hyaline Casts 0-2H Height (Feet): 5 Height (Inches): 8.00 Weight (Pounds): 350 General Appearance: no apparent distress, other - On Mask Cardiovascular: normal rate Respiratory/Chest: decreased breath sounds Abdomen: soft Edema: 1+ Arm (L), 1+ Arm (R), 1+ Leg (L), 1+ Leg (R), 1+ Pedal (L), 1+ Pedal ( R), 1+ Generalized Objective other PE not changed COURTNEY LOPEZ Apr 19, 2016 15:16
[2016-04-19] MEDS: Miralax 17gm pkt ORAL PRN (20:48)
[2016-04-20] VITALS: BP 141/71
[2016-04-20 04:00] VITALS: BP 137/84
[2016-04-20] MEDS: NovoLOG Insulin Flexpen SUBQ SCH ×4 (06:11→21:34)
[2016-04-20 06:29] LABS: BASOPHILS % (AUTO) 1.3 % (0.0-2.0); EOSINOPHILS % (AUTO) 3.1 % (0.0-3.0); MEAN CORPUSCULAR HEMOGLOBIN 27.2 PG (27.0-31.0); MEAN CORPUSCULAR HGB CONC 29.6 G/DL (32.0-36.0); MEAN CORPUSCULAR VOLUME 92 FL (80-99); MEAN PLATELET VOLUME 5.9 FL (6.5-10.1); MONOCYTES % (AUTO) 8.2 % (1.0-10.0); NEUTROPHILS % (AUTO) 73.4 % (45.0-75.0); PLATELET COUNT 216 K/UL (150-450); RED BLOOD COUNT 3.01 M/UL (4.20-5.40); RED CELL DISTRIBUTION WIDTH 16.2 % (11.6-14.8); WHITE BLOOD COUNT 4.8 K/UL (4.8-10.8)
[2016-04-20 07:21] LABS: ALANINE AMINOTRANSFERASE 7 U/L (3-33); ALBUMIN/GLOBULIN RATIO 0.8 (1.0-2.7); ASPARTATE AMINO TRANSFERASE 12 U/L (5-40); CALCIUM 9.1 mg/dL (8.6-10.2); CHLORIDE 93 mEQ/L (98-107); CREATININE 1.6 mg/dL (0.5-0.9); HEMOLYSIS 0; SODIUM 146 mEQ/L (135-145); TOTAL PROTEIN 7.5 g/dL (6.6-8.7)
[2016-04-20 07:26] LABS: ANION GAP 11 (5-15)
[2016-04-20 07:33] LABS: CARBON DIOXIDE 42 mEQ/L (20-30)
[2016-04-20 08:00] VITALS: BP 136/74
[2016-04-20] MEDS: Digoxin Elixir 0.125mg ORAL SCH (08:48)
[2016-04-20] MEDS: Furosemide 80mg tab ORAL SCH ×2 (08:49→21:33)
[2016-04-20] MEDS: Vitamin D 1000 IU Tab ORAL SCH (08:49)
[2016-04-20] MEDS: Pantoprazole Inj IV SCH (08:50)
[2016-04-20] MEDS: Calcium Carbonate 650mg Tab ORAL SCH ×3 (08:51→18:21)
[2016-04-20] MEDS: Nystatin Powder 100,000 units/gm 15gm TOPIC SCH ×3 (08:51→18:21)
[2016-04-20] MEDS: Heparin 5000 units/ml inj SUBQ SCH ×2 (08:51→21:33)
[2016-04-20] MEDS ORDERED: Bisacodyl EC 5mg tab ORAL ONE (09:00)
[2016-04-20 12:00] VITALS: BP 129/57
--- NOTE | 2016-04-20 12:00 | Diagnostic Imaging Report ---
Indication: DYSPNEA Technique: One view of the chest Comparison: 04/18/2016 Findings: Heart remains enlarged. There is new finding of pleural fluid on the right. Interstitial congestive changes appear slightly improved. However, there is suggestion of increased retrocardiac opacity, which could indicate increased infiltrate or pleural fluid Impression: New or increased right pleural effusion Increasing retrocardiac opacity, may reflect increasing pleural fluid or consolidation Overall interstitial congestion has decreased
--- NOTE | 2016-04-20 12:41 | General Progress Note ---
Assessment/Plan Status: stable - -Cr 1.6 Assessment/Plan status: Acute renal failure- Cr lower Acute Respiratory Failure, now extubated Anemia Morbid Obesity CHF ? Sepsis Plan: post extubation care K supplement as needed- Calcium supplements with Vit D on board- Optimize cardiac and pulmonary status- Avoid Nephrotoxics- monitor renal parameters Urine studies- Keep BP over 100 syst Antibiotics Subjective ROS Limited/Unobtainable: No Constitutional: Reports: malaise, weakness Allergies: Coded Allergies: AMOXICILLIN (Verified Allergy, Mild, RASH, 12/25/09) PENICILLINS (Unverified Allergy, Unknown, 04/06/16) Objective Last 24 Hour Vital Signs Date Time Temp Pulse Resp B/P Pulse Ox O2 Delivery O2 Flow Rate FiO2 04/20/16 12:00 62 04/20/16 08:48 67 04/20/16 08:48 67 134/69 04/20/16 08:00 97.3 69 22 136/74 95 Venturi Mask 04/20/16 08:00 67 04/20/16 07:15 98 Venturi Mask 14.0 55 04/20/16 07:15 Venturi Mask 14.0 55 04/20/16 06:00 60 134/69 04/20/16 04:09 65 04/20/16 04:00 97.2 64 24 137/84 97 Venturi Mask 04/20/16 00:05 61 04/20/16 00:00 98.0 61 20 141/71 98 Venturi Mask 04/19/16 22:31 63 141/80 04/19/16 22:18 141/80 04/19/16 20:07 63 04/19/16 20:00 99.9 61 18 106/56 99 Venturi Mask 55 04/19/16 19:43 94 Venturi Mask 14.0 55 04/19/16 19:30 Venturi Mask 14.0 55 04/19/16 16:00 97.5 67 21 154/54 94 Venturi Mask 55 04/19/16 15:45 65 04/19/16 13:43 64 131/70 Intake and Output 04/19/16 04/20/16 19:00 07:00 Intake Total 240 ml 390 ml Output Total 350 ml 1000 ml Balance -110 ml -610 ml Intake Oral 240 ml 390 ml Output Urine Total 350 ml 1000 ml Laboratory Tests 04/20/16 03:30: White Blood Count 4.8, Red Blood Count 3.01L, Hemoglobin 8.2L, Hematocrit 27.7L , Mean Corpuscular Volume 92, Mean Corpuscular Hemoglobin 27.2, Mean Corpuscular Hemoglobin Concent 29.6L, Red Cell Distribution Width 16.2H, Platelet Count 216, Mean Platelet Volume 5.9L, Neutrophils (%) (Auto) 73.4, Lymphocytes (%) (Auto) 14.0L, Monocytes (%) (Auto) 8.2, Eosinophils (%) (Auto) 3.1H, Basophils (%) (Auto) 1.3, Sodium Level 146H, Potassium Level 4.0, Chloride Level 93L, Carbon Dioxide Level 42*H, Anion Gap 11, Blood Urea Nitrogen 45H, Creatinine 1.6H, Estimat Glomerular Filtration Rate , Glucose Level 134H, Calcium Level 9.1, Total Bilirubin 0.4, Aspartate Amino Transf (AST/ SGOT) 12, Alanine Aminotransferase (ALT/SGPT) 7, Alkaline Phosphatase 75, Pro-B- Type Natriuretic Peptide 7844H, Total Protein 7.5, Albumin 3.5, Globulin 4.0, Albumin/Globulin Ratio 0.8L Height (Feet): 5 Height (Inches): 8.00 Weight (Pounds): 350 General Appearance: mild distress Cardiovascular: normal rate Respiratory/Chest: decreased breath sounds Abdomen: other - obese Objective other PE not changed COURTNEY LOPEZ Apr 20, 2016 12:41
--- NOTE | 2016-04-20 12:54 | Infectious Diseases Prog Note ---
Assessment/Plan Assessment/Plan A: The patient is a 75-year-old female with Leukocytosis , SP Sepsis, SP Pneumonia SCX: NL Fl Cxray : New or increased right pleural effusion LLExt Cellulitis SP probable UTI / Dysuria UCx : VRE repeat UCX : P VDRF , SP Obesity CHF HTN COPD GERD. DM PLAN: on Zyvox d# 4 / 7 Monitor CBC Monitor BMP. Monitor renal function. Monitor CBC. Monitor chest x-ray. Subjective Constitutional: Denies: anorexia, chills, drenching sweats, fatigue, fever, no symptoms, other Allergies: Coded Allergies: AMOXICILLIN (Verified Allergy, Mild, RASH, 12/25/09) PENICILLINS (Unverified Allergy, Unknown, 04/06/16) Objective Vital Signs Last 24 Hour Vital Signs Date Time Temp Pulse Resp B/P Pulse Ox O2 Delivery O2 Flow Rate FiO2 04/20/16 12:00 62 04/20/16 08:48 67 04/20/16 08:48 67 134/69 04/20/16 08:00 97.3 69 22 136/74 95 Venturi Mask 04/20/16 08:00 67 04/20/16 07:15 98 Venturi Mask 14.0 55 04/20/16 07:15 Venturi Mask 14.0 55 04/20/16 06:00 60 134/69 04/20/16 04:09 65 04/20/16 04:00 97.2 64 24 137/84 97 Venturi Mask 04/20/16 00:05 61 04/20/16 00:00 98.0 61 20 141/71 98 Venturi Mask 04/19/16 22:31 63 141/80 04/19/16 22:18 141/80 04/19/16 20:07 63 04/19/16 20:00 99.9 61 18 106/56 99 Venturi Mask 55 04/19/16 19:43 94 Venturi Mask 14.0 55 04/19/16 19:30 Venturi Mask 14.0 55 04/19/16 16:00 97.5 67 21 154/54 94 Venturi Mask 55 04/19/16 15:45 65 04/19/16 13:43 64 131/70 Height (Feet): 5 Height (Inches): 8.00 Weight (Pounds): 350 HEENT: anicteric Respiratory/Chest: normal breath sounds Cardiovascular: regular rhythm Abdomen: no organomegaly Microbiology Date/Time Source Procedure Growth Status 04/19/16 10:45 Urine,Clean Catch Urine Culture - Preliminary NO GROWTH Resulted 04/17/16 16:00 Urine,Clean Catch Urine Culture - Final NO GROWTH AFTER 48 HOURS Complete Laboratory Tests Test 04/20/16 03:30 White Blood Count 4.8 K/UL (4.8-10.8) Red Blood Count 3.01 M/UL (4.20-5.40) L Hemoglobin 8.2 G/DL (12.0-16.0) L Hematocrit 27.7 % (37.0-47.0) L Mean Corpuscular Volume 92 FL (80-99) Mean Corpuscular Hemoglobin 27.2 PG (27.0-31.0) Mean Corpuscular Hemoglobin Concent 29.6 G/DL (32.0-36.0) L Red Cell Distribution Width 16.2 % (11.6-14.8) H Platelet Count 216 K/UL (150-450) Mean Platelet Volume 5.9 FL (6.5-10.1) L Neutrophils (%) (Auto) 73.4 % (45.0-75.0) Lymphocytes (%) (Auto) 14.0 % (20.0-45.0) L Monocytes (%) (Auto) 8.2 % (1.0-10.0) Eosinophils (%) (Auto) 3.1 % (0.0-3.0) H Basophils (%) (Auto) 1.3 % (0.0-2.0) Sodium Level 146 mEQ/L (135-145) H Potassium Level 4.0 mEQ/L (3.4-4.9) Chloride Level 93 mEQ/L (98-107) L Carbon Dioxide Level 42 mEQ/L (20-30) *H Anion Gap 11 (5-15) Blood Urea Nitrogen 45 mg/dL (7-23) H Creatinine 1.6 mg/dL (0.5-0.9) H Estimat Glomerular Filtration Rate mL/min (>60) Glucose Level 134 mg/dL (74-106) H Calcium Level 9.1 mg/dL (8.6-10.2) Total Bilirubin 0.4 mg/dL (0.0-1.2) Aspartate Amino Transf (AST/SGOT) 12 U/L (5-40) Alanine Aminotransferase (ALT/SGPT) 7 U/L (3-33) Alkaline Phosphatase 75 U/L (35-104) Pro-B-Type Natriuretic Peptide 7844 pg/mL (0-125) H Total Protein 7.5 g/dL (6.6-8.7) Albumin 3.5 g/dL (3.5-5.2) Globulin 4.0 g/dL Albumin/Globulin Ratio 0.8 (1.0-2.7) L Current Medications Medications (Trade) Dose Ordered Sig/Kalyn Route PRN Reason Start Time Stop Time Status Last Admin Dose Admin Acetaminophen (Tylenol) 650 mg Q4H PRN NG Fever/Headache/Mild Pain 04/16/16 13:00 05/16/16 12:59 Artificial Tears (Akwa-Tears) 2 drop Q2H PRN BOTH EYES Dry Eyes 04/16/16 13:00 05/16/16 12:59 Calcium Carbonate (Calcium Carbonate) 1,300 mg THREE TIMES A DAY ORAL 04/18/16 16:44 05/16/16 12:59 04/20/16 12:33 Dextrose (Dextrose 50%) STAT PRN IV Hypoglycemia 04/16/16 13:00 05/16/16 12:59 Digoxin (Lanoxin) 0.125 mg DAILY ORAL 04/18/16 16:44 05/17/16 08:59 04/20/16 08:48 Diltiazem HCl (Cardizem) 30 mg EVERY 8 HOURS ORAL 04/18/16 16:44 05/16/16 13:59 04/20/16 08:48 Furosemide (Lasix) 80 mg EVERY 12 HOURS ORAL 04/16/16 21:00 05/16/16 20:59 04/20/16 08:49 Heparin Sodium (Porcine) (Heparin 5000 units/ml) 5,000 units EVERY 12 HOURS SUBQ 04/16/16 21:00 05/16/16 20:59 04/20/16 08:51 Insulin Aspart (NovoLOG) AC+HS SUBQ 04/18/16 22:30 05/18/16 22:29 04/20/16 06:11 Linezolid (Zyvox) 600 mg EVERY 12 HOURS ORAL 04/17/16 21:00 04/22/16 20:59 04/20/16 08:50 Lorazepam (Ativan 2mg/ml 1ml) 0.5 mg Q4H PRN IV For Anxiety 04/16/16 13:00 04/23/16 12:59 Morphine Sulfate (Morphine Sulfate) 4 mg Q4H PRN IVP PAIN 4-10 04/16/16 13:00 04/23/16 12:59 04/19/16 05:08 Nystatin (Nystop Powder) 1 applic THREE TIMES A DAY TOPIC 04/16/16 13:00 05/16/16 12:59 04/20/16 12:33 Ondansetron HCl (Zofran) 4 mg Q6H PRN IVP Nausea & Vomiting 04/16/16 13:00 05/16/16 12:59 Pantoprazole (Protonix) 40 mg DAILY IV 04/17/16 09:00 05/17/16 08:59 04/20/16 08:50 Polyethylene Glycol (Miralax) 17 gm DAILYPRN PRN ORAL Constipation 04/18/16 16:45 05/16/16 12:59 04/19/16 20:48 Vitamin D (Vitamin D) 5,000 intlu DAILY ORAL 04/18/16 16:45 05/17/16 08:59 04/20/16 08:49 LINDSEY HILL M.D. Apr 20, 2016 12:54
--- NOTE | 2016-04-20 14:57 | Pulmonology Progress Note ---
Assessment/Plan Problems: (1) Acute respiratory failure with hypoxia and hypercarbia (2) Pneumonia (3) COPD exacerbation (4) Atrial fibrillation with RVR (5) Morbid obesity Assessment/Plan off bipap respiratory treatment IV lasix f/u intake and output continue antibiotics titrate fio2 to sat of 92% cxr is slightly worse, ? etiology repeat BNP in am will continue diuresis as long as bun/creatinine are stable. Subjective ROS Limited/Unobtainable: No Interval Events: on face maske, toleraing well, diuresed 17 liters sofar this admission Allergies: Coded Allergies: AMOXICILLIN (Verified Allergy, Mild, RASH, 12/25/09) PENICILLINS (Unverified Allergy, Unknown, 04/06/16) Objective Last 24 Hour Vital Signs Date Time Temp Pulse Resp B/P Pulse Ox O2 Delivery O2 Flow Rate FiO2 04/20/16 12:00 97.0 67 22 129/57 97 Venturi Mask 14.0 55 04/20/16 12:00 62 04/20/16 08:48 67 04/20/16 08:48 67 134/69 04/20/16 08:00 97.3 69 22 136/74 95 Venturi Mask 04/20/16 08:00 67 04/20/16 07:15 98 Venturi Mask 14.0 55 04/20/16 07:15 Venturi Mask 14.0 55 04/20/16 06:00 60 134/69 04/20/16 04:09 65 04/20/16 04:00 97.2 64 24 137/84 97 Venturi Mask 04/20/16 00:05 61 04/20/16 00:00 98.0 61 20 141/71 98 Venturi Mask 04/19/16 22:31 63 141/80 04/19/16 22:18 141/80 04/19/16 20:07 63 04/19/16 20:00 99.9 61 18 106/56 99 Venturi Mask 55 04/19/16 19:43 94 Venturi Mask 14.0 55 04/19/16 19:30 Venturi Mask 14.0 55 04/19/16 16:00 97.5 67 21 154/54 94 Venturi Mask 55 04/19/16 15:45 65 Intake and Output 04/19/16 04/20/16 19:00 07:00 Intake Total 240 ml 390 ml Output Total 350 ml 1000 ml Balance -110 ml -610 ml Intake Oral 240 ml 390 ml Output Urine Total 350 ml 1000 ml Objective General Appearance: WD/WN, dyspnic HEENT: normocephalic, anicteric Respiratory/Chest: chest wall non-tender, decreased breath sounds Cardiovascular: normal peripheral pulses, normal rate Abdomen: normal bowel sounds, soft, non tender Genitourinary: normal external genitalia Extremities: no cyanosis Skin: no rash 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 Lymphatic: no neck adenopathy Microbiology Date/Time Source Procedure Growth Status 04/19/16 10:45 Urine,Clean Catch Urine Culture - Preliminary NO GROWTH Resulted 04/17/16 16:00 Urine,Clean Catch Urine Culture - Final NO GROWTH AFTER 48 HOURS Complete Laboratory Tests 04/20/16 03:30: White Blood Count 4.8, Red Blood Count 3.01L, Hemoglobin 8.2L, Hematocrit 27.7L , Mean Corpuscular Volume 92, Mean Corpuscular Hemoglobin 27.2, Mean Corpuscular Hemoglobin Concent 29.6L, Red Cell Distribution Width 16.2H, Platelet Count 216, Mean Platelet Volume 5.9L, Neutrophils (%) (Auto) 73.4, Lymphocytes (%) (Auto) 14.0L, Monocytes (%) (Auto) 8.2, Eosinophils (%) (Auto) 3.1H, Basophils (%) (Auto) 1.3, Sodium Level 146H, Potassium Level 4.0, Chloride Level 93L, Carbon Dioxide Level 42*H, Anion Gap 11, Blood Urea Nitrogen 45H, Creatinine 1.6H, Estimat Glomerular Filtration Rate , Glucose Level 134H, Calcium Level 9.1, Total Bilirubin 0.4, Aspartate Amino Transf (AST/ SGOT) 12, Alanine Aminotransferase (ALT/SGPT) 7, Alkaline Phosphatase 75, Pro-B- Type Natriuretic Peptide 7844H, Total Protein 7.5, Albumin 3.5, Globulin 4.0, Albumin/Globulin Ratio 0.8L Current Medications Medications (Trade) Dose Ordered Sig/Kalyn Route PRN Reason Start Time Stop Time Status Last Admin Dose Admin Acetaminophen (Tylenol) 650 mg Q4H PRN NG Fever/Headache/Mild Pain 04/16/16 13:00 05/16/16 12:59 Artificial Tears (Akwa-Tears) 2 drop Q2H PRN BOTH EYES Dry Eyes 04/16/16 13:00 05/16/16 12:59 Calcium Carbonate (Calcium Carbonate) 1,300 mg THREE TIMES A DAY ORAL 04/18/16 16:44 05/16/16 12:59 04/20/16 12:33 Dextrose (Dextrose 50%) STAT PRN IV Hypoglycemia 04/16/16 13:00 05/16/16 12:59 Digoxin (Lanoxin) 0.125 mg DAILY ORAL 04/18/16 16:44 05/17/16 08:59 04/20/16 08:48 Diltiazem HCl (Cardizem) 30 mg EVERY 8 HOURS ORAL 04/18/16 16:44 05/16/16 13:59 04/20/16 08:48 Furosemide (Lasix) 80 mg EVERY 12 HOURS ORAL 04/16/16 21:00 05/16/16 20:59 04/20/16 08:49 Heparin Sodium (Porcine) (Heparin 5000 units/ml) 5,000 units EVERY 12 HOURS SUBQ 04/16/16 21:00 05/16/16 20:59 04/20/16 08:51 Insulin Aspart (NovoLOG) AC+HS SUBQ 04/18/16 22:30 05/18/16 22:29 04/20/16 06:11 Linezolid (Zyvox) 600 mg EVERY 12 HOURS ORAL 04/17/16 21:00 04/22/16 20:59 04/20/16 08:50 Lorazepam (Ativan 2mg/ml 1ml) 0.5 mg Q4H PRN IV For Anxiety 04/16/16 13:00 04/23/16 12:59 Morphine Sulfate (Morphine Sulfate) 4 mg Q4H PRN IVP PAIN 4-10 04/16/16 13:00 04/23/16 12:59 04/19/16 05:08 Nystatin (Nystop Powder) 1 applic THREE TIMES A DAY TOPIC 04/16/16 13:00 05/16/16 12:59 04/20/16 12:33 Ondansetron HCl (Zofran) 4 mg Q6H PRN IVP Nausea & Vomiting 04/16/16 13:00 05/16/16 12:59 Pantoprazole (Protonix) 40 mg DAILY IV 04/17/16 09:00 05/17/16 08:59 04/20/16 08:50 Polyethylene Glycol (Miralax) 17 gm DAILYPRN PRN ORAL Constipation 04/18/16 16:45 05/16/16 12:59 04/19/16 20:48 Vitamin D (Vitamin D) 5,000 intlu DAILY ORAL 04/18/16 16:45 05/17/16 08:59 04/20/16 08:49 ARASH MIRANDA Apr 20, 2016 14:57
[2016-04-20] MEDS ORDERED: NS 275ml ONE (15:33)
[2016-04-20 16:30] VITALS: BP 142/85
--- NOTE | 2016-04-20 17:10 | Cardiac Electrophysiology PN ---
Assessment/Plan Assessment/Plan 1. Respiratory failure, due to chronic obstructive pulmonary disease and volume overload. On BIPAP. Echocardiogram EF 55% to 60%.Continue Lasix 40 iv BID. 2. Atrial fibrillation, rate controlled on Dig 0.125 and Cardizem 30 mg T.I.D. 3. HTN On Lasix and Cardizem. 4. Lower extremity cellulitis, on IV antibiotics 5. Morbid obesity. 6. CKD creatinine 1.5 7. DNI DW RN and Dr Rene Subjective Subjective On BIPAP in [place]. Atrial Fib rate controlled .Still on high dose Lasix. Objective Last 24 Hour Vital Signs Date Time Temp Pulse Resp B/P Pulse Ox O2 Delivery O2 Flow Rate FiO2 04/20/16 12:00 97.0 67 22 129/57 97 Venturi Mask 14.0 55 04/20/16 12:00 62 04/20/16 08:48 67 04/20/16 08:48 67 134/69 04/20/16 08:00 97.3 69 22 136/74 95 Venturi Mask 04/20/16 08:00 67 04/20/16 07:15 98 Venturi Mask 14.0 55 04/20/16 07:15 Venturi Mask 14.0 55 04/20/16 06:00 60 134/69 04/20/16 04:09 65 04/20/16 04:00 97.2 64 24 137/84 97 Venturi Mask 04/20/16 00:05 61 04/20/16 00:00 98.0 61 20 141/71 98 Venturi Mask 04/19/16 22:31 63 141/80 04/19/16 22:18 141/80 04/19/16 20:07 63 04/19/16 20:00 99.9 61 18 106/56 99 Venturi Mask 55 04/19/16 19:43 94 Venturi Mask 14.0 55 04/19/16 19:30 Venturi Mask 14.0 55 Intake and Output 04/19/16 04/20/16 19:00 07:00 Intake Total 240 ml 390 ml Output Total 350 ml 1000 ml Balance -110 ml -610 ml Intake Oral 240 ml 390 ml Output Urine Total 350 ml 1000 ml Laboratory Tests Test 04/20/16 03:30 White Blood Count 4.8 K/UL (4.8-10.8) Red Blood Count 3.01 M/UL (4.20-5.40) L Hemoglobin 8.2 G/DL (12.0-16.0) L Hematocrit 27.7 % (37.0-47.0) L Mean Corpuscular Volume 92 FL (80-99) Mean Corpuscular Hemoglobin 27.2 PG (27.0-31.0) Mean Corpuscular Hemoglobin Concent 29.6 G/DL (32.0-36.0) L Red Cell Distribution Width 16.2 % (11.6-14.8) H Platelet Count 216 K/UL (150-450) Mean Platelet Volume 5.9 FL (6.5-10.1) L Neutrophils (%) (Auto) 73.4 % (45.0-75.0) Lymphocytes (%) (Auto) 14.0 % (20.0-45.0) L Monocytes (%) (Auto) 8.2 % (1.0-10.0) Eosinophils (%) (Auto) 3.1 % (0.0-3.0) H Basophils (%) (Auto) 1.3 % (0.0-2.0) Sodium Level 146 mEQ/L (135-145) H Potassium Level 4.0 mEQ/L (3.4-4.9) Chloride Level 93 mEQ/L (98-107) L Carbon Dioxide Level 42 mEQ/L (20-30) *H Anion Gap 11 (5-15) Blood Urea Nitrogen 45 mg/dL (7-23) H Creatinine 1.6 mg/dL (0.5-0.9) H Estimat Glomerular Filtration Rate mL/min (>60) Glucose Level 134 mg/dL (74-106) H Calcium Level 9.1 mg/dL (8.6-10.2) Total Bilirubin 0.4 mg/dL (0.0-1.2) Aspartate Amino Transf (AST/SGOT) 12 U/L (5-40) Alanine Aminotransferase (ALT/SGPT) 7 U/L (3-33) Alkaline Phosphatase 75 U/L (35-104) Pro-B-Type Natriuretic Peptide 7844 pg/mL (0-125) H Total Protein 7.5 g/dL (6.6-8.7) Albumin 3.5 g/dL (3.5-5.2) Globulin 4.0 g/dL Albumin/Globulin Ratio 0.8 (1.0-2.7) L Microbiology Date/Time Source Procedure Growth Status 04/19/16 10:45 Urine,Clean Catch Urine Culture - Preliminary NO GROWTH Resulted Objective HEAD AND NECK: No JVD LUNGS: Coarse rhonchi bilaterally. CARDIOVASCULAR: Irregularly irregular S1 and S2 with no gallop or murmur. ABDOMEN: Morbidly obese. EXTREMITIES: 1+ pitting edema.Left leg cellulitis. JOHN NUÑEZ Apr 20, 2016 17:10
[2016-04-20 20:00] VITALS: BP 145/71
--- NOTE | 2016-04-20 20:33 | General Progress Note ---
Assessment/Plan Assessment/Plan Diagnosis 1. Acute hypoxemic and hypercapnic respiratory failure requiring intubation. 2. Acute kidney injury. 3. Morbid obesity. 4. Hypokalemia 5. Diabetes mellitus. 6. Congestive heart failure. 7. Chronic obstructive pulmonary disease exacerbation 8. Pulmonary hypertension. 9. severe edema/anasarca 10. Acute anemia 11. Acute diastolic heart failure 12. left lower extremity cellulitis 13. Pneumonia 14. s/p extubation on 04/14/16 now on BiPap 15. dysuria 16. pleural effsuion plan: -transfered out of ICU on 04/16/16 -continue present care -daily labs -Biapap per Dr. Rene -finished course of IV antibiotics, monitor off abx per Dr. Milan -nephrology input appreciated -cardiology input appreciated -type and cross match for one unit of PRBC -continue lasix 80 mg po bid, I's and O's -continuept/ot out of bed to cardiac chair -change pichardo, urinalysis and urine culture -spot lasix 20 mg once will request social work consult for [facility], patient does not want to go back to [facility] at this time discussed with Nurse FULL code Subjective Date patient seen: Apr 20, 2016 Time patient seen: 20:31 Allergies: Coded Allergies: AMOXICILLIN (Verified Allergy, Mild, RASH, 12/25/09) PENICILLINS (Unverified Allergy, Unknown, 04/06/16) All Systems: reviewed and negative except above Objective Last 24 Hour Vital Signs Date Time Temp Pulse Resp B/P Pulse Ox O2 Delivery O2 Flow Rate FiO2 04/20/16 19:08 61 20 98 Facial 50 04/20/16 19:06 98 Bi-pap 50 04/20/16 19:06 Bi-pap 50 04/20/16 16:30 96.8 67 18 142/85 98 Venturi Mask 55 04/20/16 16:18 69 04/20/16 12:00 97.0 67 22 129/57 97 Venturi Mask 14.0 55 04/20/16 12:00 62 04/20/16 08:48 67 04/20/16 08:48 67 134/69 04/20/16 08:00 97.3 69 22 136/74 95 Venturi Mask 04/20/16 08:00 67 04/20/16 07:15 98 Venturi Mask 14.0 55 04/20/16 07:15 Venturi Mask 14.0 55 04/20/16 06:00 60 134/69 04/20/16 04:09 65 04/20/16 04:00 97.2 64 24 137/84 97 Venturi Mask 04/20/16 00:05 61 04/20/16 00:00 98.0 61 20 141/71 98 Venturi Mask 04/19/16 22:31 63 141/80 04/19/16 22:18 141/80 Intake and Output 04/19/16 04/20/16 19:00 07:00 Intake Total 240 ml 390 ml Output Total 350 ml 1000 ml Balance -110 ml -610 ml Intake Oral 240 ml 390 ml Output Urine Total 350 ml 1000 ml Laboratory Tests 04/20/16 03:30: White Blood Count 4.8, Red Blood Count 3.01L, Hemoglobin 8.2L, Hematocrit 27.7L , Mean Corpuscular Volume 92, Mean Corpuscular Hemoglobin 27.2, Mean Corpuscular Hemoglobin Concent 29.6L, Red Cell Distribution Width 16.2H, Platelet Count 216, Mean Platelet Volume 5.9L, Neutrophils (%) (Auto) 73.4, Lymphocytes (%) (Auto) 14.0L, Monocytes (%) (Auto) 8.2, Eosinophils (%) (Auto) 3.1H, Basophils (%) (Auto) 1.3, Sodium Level 146H, Potassium Level 4.0, Chloride Level 93L, Carbon Dioxide Level 42*H, Anion Gap 11, Blood Urea Nitrogen 45H, Creatinine 1.6H, Estimat Glomerular Filtration Rate , Glucose Level 134H, Calcium Level 9.1, Total Bilirubin 0.4, Aspartate Amino Transf (AST/ SGOT) 12, Alanine Aminotransferase (ALT/SGPT) 7, Alkaline Phosphatase 75, Pro-B- Type Natriuretic Peptide 7844H, Total Protein 7.5, Albumin 3.5, Globulin 4.0, Albumin/Globulin Ratio 0.8L Height (Feet): 5 Height (Inches): 8.00 Weight (Pounds): 350 General Appearance: morbidly obese EENT: PERRL/EOMI Neck: normal alignment Cardiovascular: regular rhythm Respiratory/Chest: decreased breath sounds Abdomen: normal bowel sounds Extremities: normal range of motion, swelling Edema: no edema noted Arm (L), no edema noted Arm (R), 1+ Leg (L), 1+ Leg (R), 1+ Pedal (L), 1+ Pedal (R), 1+ Generalized Edema: moderate edema 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
[2016-04-20] MEDS: Miralax 17gm pkt ORAL PRN (21:36)
[2016-04-21] VITALS: BP 135/82
[2016-04-21 04:19] VITALS: BP 141/76
[2016-04-21] MEDS: NovoLOG Insulin Flexpen SUBQ SCH ×4 (05:52→22:09)
[2016-04-21 06:05] LABS: BASOPHILS % (AUTO) 1.1 % (0.0-2.0); EOSINOPHILS % (AUTO) 3.4 % (0.0-3.0); MEAN CORPUSCULAR HEMOGLOBIN 27.3 PG (27.0-31.0); MEAN CORPUSCULAR HGB CONC 29.5 G/DL (32.0-36.0); MEAN CORPUSCULAR VOLUME 93 FL (80-99); MEAN PLATELET VOLUME 6.1 FL (6.5-10.1); MONOCYTES % (AUTO) 8.4 % (1.0-10.0); NEUTROPHILS % (AUTO) 72.1 % (45.0-75.0); PLATELET COUNT 227 K/UL (150-450); RED BLOOD COUNT 2.93 M/UL (4.20-5.40); WHITE BLOOD COUNT 4.7 K/UL (4.8-10.8)
[2016-04-21 06:26] LABS: ALANINE AMINOTRANSFERASE 6 U/L (3-33); ALBUMIN/GLOBULIN RATIO 0.9 (1.0-2.7); ASPARTATE AMINO TRANSFERASE 13 U/L (5-40); CALCIUM 8.8 mg/dL (8.6-10.2); CHLORIDE 95 mEQ/L (98-107); CREATININE 1.5 mg/dL (0.5-0.9); HEMOLYSIS 2; SODIUM 147 mEQ/L (135-145); TOTAL PROTEIN 7.1 g/dL (6.6-8.7)
[2016-04-21 06:31] LABS: ANION GAP 11 (5-15)
[2016-04-21 06:35] LABS: CARBON DIOXIDE 41 mEQ/L (20-30)
[2016-04-21 08:00] VITALS: BP 121/87
[2016-04-21] MEDS: Nystatin Powder 100,000 units/gm 15gm TOPIC SCH ×3 (09:17→18:32)
[2016-04-21] MEDS: Digoxin Elixir 0.125mg ORAL SCH (09:17)
[2016-04-21] MEDS: Furosemide 80mg tab ORAL SCH ×2 (09:18→22:08)
[2016-04-21] MEDS: Calcium Carbonate 650mg Tab ORAL SCH ×3 (09:18→18:32)
[2016-04-21] MEDS: Vitamin D 1000 IU Tab ORAL SCH (09:18)
[2016-04-21] MEDS: Heparin 5000 units/ml inj SUBQ SCH ×2 (09:19→22:08)
[2016-04-21] MEDS: Pantoprazole Inj IV SCH (09:20)
[2016-04-21 12:00] VITALS: BP 140/70
--- NOTE | 2016-04-21 12:31 | Pulmonology Progress Note ---
Assessment/Plan Problems: (1) Acute respiratory failure with hypoxia and hypercarbia (2) Pneumonia (3) COPD exacerbation (4) Atrial fibrillation with RVR (5) Morbid obesity Assessment/Plan on andoff bipap respiratory treatment IV lasix 80 q12, bun/creatinine stable f/u intake and output continue antibiotics titrate fio2 to sat of 92% repeat BNP in am will continue diuresis as long as bun/creatinine are stable. Subjective Interval Events: on and off bipap, total of 18.5 liters of negative fluid balance. Allergies: Coded Allergies: AMOXICILLIN (Verified Allergy, Mild, RASH, 12/25/09) PENICILLINS (Unverified Allergy, Unknown, 04/06/16) Objective Last 24 Hour Vital Signs Date Time Temp Pulse Resp B/P Pulse Ox O2 Delivery O2 Flow Rate FiO2 04/21/16 10:47 59 27 98 Facial 50 04/21/16 09:17 65 04/21/16 09:17 65 121/87 04/21/16 08:00 65 04/21/16 08:00 97.2 64 22 121/87 97 04/21/16 07:05 99 Venturi Mask 14.0 55 04/21/16 07:05 Venturi Mask 14.0 55 04/21/16 05:43 68 141/76 04/21/16 04:59 68 14 99 Facial 50 04/21/16 04:19 97.2 61 20 141/76 99 Bi-pap 50 04/21/16 04:07 63 04/21/16 04:00 50 04/21/16 02:47 70 18 99 Facial 50 04/21/16 00:40 62 22 100 Facial 50 04/21/16 00:00 97.0 61 20 135/82 96 Bi-pap 50 04/21/16 00:00 50 04/21/16 00:00 58 04/20/16 23:43 65 20 98 Facial 50 04/20/16 21:39 67 20 98 Facial 50 04/20/16 21:33 60 145/71 04/20/16 20:00 50 04/20/16 20:00 97.0 60 22 145/71 95 Bi-pap 50 04/20/16 20:00 62 04/20/16 19:08 61 20 98 Facial 50 04/20/16 19:06 98 Bi-pap 50 04/20/16 19:06 Bi-pap 50 04/20/16 16:30 96.8 67 18 142/85 98 Venturi Mask 55 04/20/16 16:18 69 Intake and Output 04/20/16 04/21/16 19:00 07:00 Intake Total 240 ml 240 ml Output Total 500 ml 900 ml Balance -260 ml -660 ml Intake Oral 240 ml 240 ml Output Urine Total 500 ml 900 ml # Bowel Movements 1 Objective General Appearance: WD/WN, dyspnic HEENT: normocephalic, anicteric Respiratory/Chest: chest wall non-tender, decreased breath sounds Cardiovascular: normal peripheral pulses, normal rate Abdomen: normal bowel sounds, soft, non tender Genitourinary: normal external genitalia Extremities: no cyanosis Skin: no rash 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 Lymphatic: no neck adenopathy Microbiology Date/Time Source Procedure Growth Status 04/19/16 10:45 Urine,Clean Catch Urine Culture - Preliminary NO GROWTH AFTER 24 HOURS Resulted Laboratory Tests 04/21/16 04:30: White Blood Count 4.7L, Red Blood Count 2.93L, Hemoglobin 8.0L, Hematocrit 27.2L , Mean Corpuscular Volume 93, Mean Corpuscular Hemoglobin 27.3, Mean Corpuscular Hemoglobin Concent 29.5L, Red Cell Distribution Width 16.0H, Platelet Count 227, Mean Platelet Volume 6.1L, Neutrophils (%) (Auto) 72.1, Lymphocytes (%) (Auto) 15.0L, Monocytes (%) (Auto) 8.4, Eosinophils (%) (Auto) 3.4H, Basophils (%) (Auto) 1.1, Sodium Level 147H, Potassium Level 4.0, Chloride Level 95L, Carbon Dioxide Level 41*H, Anion Gap 11, Blood Urea Nitrogen 41H, Creatinine 1.5H, Estimat Glomerular Filtration Rate , Glucose Level 115H, Calcium Level 8.8, Total Bilirubin 0.4, Aspartate Amino Transf (AST/ SGOT) 13, Alanine Aminotransferase (ALT/SGPT) 6, Alkaline Phosphatase 69, Pro-B- Type Natriuretic Peptide 7701H, Total Protein 7.1, Albumin 3.4L, Globulin 3.7, Albumin/Globulin Ratio 0.9L Current Medications Medications (Trade) Dose Ordered Sig/Kalyn Route PRN Reason Start Time Stop Time Status Last Admin Dose Admin Acetaminophen (Tylenol) 650 mg Q4H PRN NG Fever/Headache/Mild Pain 04/16/16 13:00 05/16/16 12:59 Artificial Tears (Akwa-Tears) 2 drop Q2H PRN BOTH EYES Dry Eyes 04/16/16 13:00 05/16/16 12:59 Calcium Carbonate (Calcium Carbonate) 1,300 mg THREE TIMES A DAY ORAL 04/18/16 16:44 05/16/16 12:59 04/21/16 09:18 Dextrose (Dextrose 50%) STAT PRN IV Hypoglycemia 04/16/16 13:00 05/16/16 12:59 Digoxin (Lanoxin) 0.125 mg DAILY ORAL 04/18/16 16:44 05/17/16 08:59 04/21/16 09:17 Diltiazem HCl (Cardizem) 30 mg EVERY 8 HOURS ORAL 04/18/16 16:44 05/16/16 13:59 04/21/16 09:17 Furosemide (Lasix) 80 mg EVERY 12 HOURS ORAL 04/16/16 21:00 05/16/16 20:59 04/21/16 09:18 Heparin Sodium (Porcine) (Heparin 5000 units/ml) 5,000 units EVERY 12 HOURS SUBQ 04/16/16 21:00 05/16/16 20:59 04/21/16 09:19 Insulin Aspart (NovoLOG) AC+HS SUBQ 04/18/16 22:30 05/18/16 22:29 04/20/16 21:34 Linezolid (Zyvox) 600 mg EVERY 12 HOURS ORAL 04/17/16 21:00 04/22/16 20:59 04/21/16 09:17 Lorazepam (Ativan 2mg/ml 1ml) 0.5 mg Q4H PRN IV For Anxiety 04/16/16 13:00 04/23/16 12:59 Morphine Sulfate (Morphine Sulfate) 4 mg Q4H PRN IVP PAIN 4-10 04/16/16 13:00 04/23/16 12:59 04/19/16 05:08 Nystatin (Nystop Powder) 1 applic THREE TIMES A DAY TOPIC 04/16/16 13:00 05/16/16 12:59 04/21/16 09:17 Ondansetron HCl (Zofran) 4 mg Q6H PRN IVP Nausea & Vomiting 04/16/16 13:00 05/16/16 12:59 Pantoprazole (Protonix) 40 mg DAILY IV 04/17/16 09:00 05/17/16 08:59 04/21/16 09:20 Polyethylene Glycol (Miralax) 17 gm DAILYPRN PRN ORAL Constipation 04/18/16 16:45 05/16/16 12:59 04/20/16 21:36 Vitamin D (Vitamin D) 5,000 intlu DAILY ORAL 04/18/16 16:45 05/17/16 08:59 04/21/16 09:18 ARASH MIRANDA Apr 21, 2016 12:31
--- NOTE | 2016-04-21 13:06 | General Progress Note ---
Assessment/Plan Status: unchanged Status Narrative Cr stable at 1.5 Assessment/Plan status: Acute renal failure- Cr lower Acute Respiratory Failure, now extubated Anemia Morbid Obesity CHF ? Sepsis Plan: post extubation care K supplement as needed- Calcium supplements with Vit D on board- Optimize cardiac and pulmonary status- Avoid Nephrotoxics- monitor renal parameters Urine studies- Keep BP over 100 syst Antibiotics Subjective ROS Limited/Unobtainable: No Constitutional: Reports: malaise Allergies: Coded Allergies: AMOXICILLIN (Verified Allergy, Mild, RASH, 12/25/09) PENICILLINS (Unverified Allergy, Unknown, 04/06/16) Objective Last 24 Hour Vital Signs Date Time Temp Pulse Resp B/P Pulse Ox O2 Delivery O2 Flow Rate FiO2 04/21/16 10:47 59 27 98 Facial 50 04/21/16 09:17 65 04/21/16 09:17 65 121/87 04/21/16 08:00 65 04/21/16 08:00 97.2 64 22 121/87 97 04/21/16 07:05 99 Venturi Mask 14.0 55 04/21/16 07:05 Venturi Mask 14.0 55 04/21/16 05:43 68 141/76 04/21/16 04:59 68 14 99 Facial 50 04/21/16 04:19 97.2 61 20 141/76 99 Bi-pap 50 04/21/16 04:07 63 04/21/16 04:00 50 04/21/16 02:47 70 18 99 Facial 50 04/21/16 00:40 62 22 100 Facial 50 04/21/16 00:00 97.0 61 20 135/82 96 Bi-pap 50 04/21/16 00:00 50 04/21/16 00:00 58 04/20/16 23:43 65 20 98 Facial 50 04/20/16 21:39 67 20 98 Facial 50 04/20/16 21:33 60 145/71 04/20/16 20:00 50 04/20/16 20:00 97.0 60 22 145/71 95 Bi-pap 50 04/20/16 20:00 62 04/20/16 19:08 61 20 98 Facial 50 04/20/16 19:06 98 Bi-pap 50 04/20/16 19:06 Bi-pap 50 04/20/16 16:30 96.8 67 18 142/85 98 Venturi Mask 55 04/20/16 16:18 69 Intake and Output 04/20/16 04/21/16 19:00 07:00 Intake Total 240 ml 240 ml Output Total 500 ml 900 ml Balance -260 ml -660 ml Intake Oral 240 ml 240 ml Output Urine Total 500 ml 900 ml # Bowel Movements 1 Laboratory Tests 04/21/16 04:30: White Blood Count 4.7L, Red Blood Count 2.93L, Hemoglobin 8.0L, Hematocrit 27.2L , Mean Corpuscular Volume 93, Mean Corpuscular Hemoglobin 27.3, Mean Corpuscular Hemoglobin Concent 29.5L, Red Cell Distribution Width 16.0H, Platelet Count 227, Mean Platelet Volume 6.1L, Neutrophils (%) (Auto) 72.1, Lymphocytes (%) (Auto) 15.0L, Monocytes (%) (Auto) 8.4, Eosinophils (%) (Auto) 3.4H, Basophils (%) (Auto) 1.1, Sodium Level 147H, Potassium Level 4.0, Chloride Level 95L, Carbon Dioxide Level 41*H, Anion Gap 11, Blood Urea Nitrogen 41H, Creatinine 1.5H, Estimat Glomerular Filtration Rate , Glucose Level 115H, Calcium Level 8.8, Total Bilirubin 0.4, Aspartate Amino Transf (AST/ SGOT) 13, Alanine Aminotransferase (ALT/SGPT) 6, Alkaline Phosphatase 69, Pro-B- Type Natriuretic Peptide 7701H, Total Protein 7.1, Albumin 3.4L, Globulin 3.7, Albumin/Globulin Ratio 0.9L Height (Feet): 5 Height (Inches): 8.00 Weight (Pounds): 350 General Appearance: confused Cardiovascular: normal rate Respiratory/Chest: decreased breath sounds Abdomen: distended Objective other PE not changed COURTNEY LOPEZ Apr 21, 2016 13:06
[2016-04-21 16:15] VITALS: BP 135/75
[2016-04-21] MEDS ORDERED: DuoNeb 0.5-3(2.5)mg/3ml neb HHN PRN (17:30)
[2016-04-21 20:00] VITALS: BP 137/72
--- NOTE | 2016-04-21 21:38 | Infectious Diseases Prog Note ---
Assessment/Plan Assessment/Plan A: The patient is a 75-year-old female with Leukocytosis , SP Sepsis, SP Pneumonia SCX: NL Fl Cxray : New or increased right pleural effusion LLExt Cellulitis SP probable UTI / Dysuria UCx : VRE repeat UCX : P VDRF , SP Obesity CHF HTN COPD GERD. DM PLAN: on Zyvox d# 5 / 7 Monitor CBC Monitor BMP. Monitor renal function. Monitor CBC. Monitor chest x-ray. Subjective Constitutional: Denies: anorexia, chills, drenching sweats, fatigue, fever, no symptoms, other Allergies: Coded Allergies: AMOXICILLIN (Verified Allergy, Mild, RASH, 12/25/09) PENICILLINS (Unverified Allergy, Unknown, 04/06/16) Objective Vital Signs Last 24 Hour Vital Signs Date Time Temp Pulse Resp B/P Pulse Ox O2 Delivery O2 Flow Rate FiO2 04/21/16 20:00 96.9 63 22 137/72 99 Venturi Mask 55 04/21/16 19:34 99 Venturi Mask 14.0 55 04/21/16 19:34 Venturi Mask 14.0 55 04/21/16 16:15 96.9 70 18 135/75 100 Venturi Mask 55 04/21/16 15:38 68 04/21/16 12:00 96.6 62 20 140/70 99 Venturi Mask 55 04/21/16 12:00 68 04/21/16 12:00 55 04/21/16 10:47 59 27 98 Facial 50 04/21/16 09:17 65 04/21/16 09:17 65 121/87 04/21/16 08:00 65 04/21/16 08:00 97.2 64 22 121/87 97 04/21/16 07:05 99 Venturi Mask 14.0 55 04/21/16 07:05 Venturi Mask 14.0 55 04/21/16 05:43 68 141/76 04/21/16 04:59 68 14 99 Facial 50 04/21/16 04:19 97.2 61 20 141/76 99 Bi-pap 50 04/21/16 04:07 63 04/21/16 04:00 50 04/21/16 02:47 70 18 99 Facial 50 04/21/16 00:40 62 22 100 Facial 50 04/21/16 00:00 97.0 61 20 135/82 96 Bi-pap 50 04/21/16 00:00 50 04/21/16 00:00 58 04/20/16 23:43 65 20 98 Facial 50 04/20/16 21:39 67 20 98 Facial 50 Height (Feet): 5 Height (Inches): 8.00 Weight (Pounds): 350 HEENT: anicteric Respiratory/Chest: lungs clear Cardiovascular: normal rate Abdomen: non distended Microbiology Date/Time Source Procedure Growth Status 04/19/16 10:45 Urine,Clean Catch Urine Culture - Preliminary NO GROWTH AFTER 24 HOURS Resulted Laboratory Tests Test 04/21/16 04:30 White Blood Count 4.7 K/UL (4.8-10.8) L Red Blood Count 2.93 M/UL (4.20-5.40) L Hemoglobin 8.0 G/DL (12.0-16.0) L Hematocrit 27.2 % (37.0-47.0) L Mean Corpuscular Volume 93 FL (80-99) Mean Corpuscular Hemoglobin 27.3 PG (27.0-31.0) Mean Corpuscular Hemoglobin Concent 29.5 G/DL (32.0-36.0) L Red Cell Distribution Width 16.0 % (11.6-14.8) H Platelet Count 227 K/UL (150-450) Mean Platelet Volume 6.1 FL (6.5-10.1) L Neutrophils (%) (Auto) 72.1 % (45.0-75.0) Lymphocytes (%) (Auto) 15.0 % (20.0-45.0) L Monocytes (%) (Auto) 8.4 % (1.0-10.0) Eosinophils (%) (Auto) 3.4 % (0.0-3.0) H Basophils (%) (Auto) 1.1 % (0.0-2.0) Sodium Level 147 mEQ/L (135-145) H Potassium Level 4.0 mEQ/L (3.4-4.9) Chloride Level 95 mEQ/L (98-107) L Carbon Dioxide Level 41 mEQ/L (20-30) *H Anion Gap 11 (5-15) Blood Urea Nitrogen 41 mg/dL (7-23) H Creatinine 1.5 mg/dL (0.5-0.9) H Estimat Glomerular Filtration Rate mL/min (>60) Glucose Level 115 mg/dL (74-106) H Calcium Level 8.8 mg/dL (8.6-10.2) Total Bilirubin 0.4 mg/dL (0.0-1.2) Aspartate Amino Transf (AST/SGOT) 13 U/L (5-40) Alanine Aminotransferase (ALT/SGPT) 6 U/L (3-33) Alkaline Phosphatase 69 U/L (35-104) Pro-B-Type Natriuretic Peptide 7701 pg/mL (0-125) H Total Protein 7.1 g/dL (6.6-8.7) Albumin 3.4 g/dL (3.5-5.2) L Globulin 3.7 g/dL Albumin/Globulin Ratio 0.9 (1.0-2.7) L Current Medications Medications (Trade) Dose Ordered Sig/Kalyn Route PRN Reason Start Time Stop Time Status Last Admin Dose Admin Acetaminophen (Tylenol) 650 mg Q4H PRN NG Fever/Headache/Mild Pain 04/16/16 13:00 05/16/16 12:59 Albuterol/ Ipratropium (DuoNeb 0.5-3(2.5)mg/3ml) 3 ml Q4HR PRN HHN Shortness of Breath/Congestion 04/21/16 17:30 04/26/16 17:29 Artificial Tears (Akwa-Tears) 2 drop Q2H PRN BOTH EYES Dry Eyes 04/16/16 13:00 05/16/16 12:59 Calcium Carbonate (Calcium Carbonate) 1,300 mg THREE TIMES A DAY ORAL 04/18/16 16:44 05/16/16 12:59 04/21/16 18:32 Dextrose (Dextrose 50%) STAT PRN IV Hypoglycemia 04/16/16 13:00 05/16/16 12:59 Digoxin (Lanoxin) 0.125 mg DAILY ORAL 04/18/16 16:44 05/17/16 08:59 04/21/16 09:17 Diltiazem HCl (Cardizem) 30 mg EVERY 8 HOURS ORAL 04/18/16 16:44 05/16/16 13:59 04/21/16 09:17 Furosemide (Lasix) 80 mg EVERY 12 HOURS ORAL 04/16/16 21:00 05/16/16 20:59 04/21/16 09:18 Heparin Sodium (Porcine) (Heparin 5000 units/ml) 5,000 units EVERY 12 HOURS SUBQ 04/16/16 21:00 05/16/16 20:59 04/21/16 09:19 Insulin Aspart (NovoLOG) AC+HS SUBQ 04/18/16 22:30 05/18/16 22:29 04/21/16 17:21 Linezolid (Zyvox) 600 mg EVERY 12 HOURS ORAL 04/17/16 21:00 04/23/16 23:59 04/21/16 09:17 Lorazepam (Ativan 2mg/ml 1ml) 0.5 mg Q4H PRN IV For Anxiety 04/16/16 13:00 04/23/16 12:59 Morphine Sulfate (Morphine Sulfate) 4 mg Q4H PRN IVP PAIN 4-10 04/16/16 13:00 04/23/16 12:59 04/19/16 05:08 Nystatin (Nystop Powder) 1 applic THREE TIMES A DAY TOPIC 04/16/16 13:00 05/16/16 12:59 04/21/16 18:32 Ondansetron HCl (Zofran) 4 mg Q6H PRN IVP Nausea & Vomiting 04/16/16 13:00 05/16/16 12:59 Pantoprazole (Protonix) 40 mg DAILY IV 04/17/16 09:00 05/17/16 08:59 04/21/16 09:20 Polyethylene Glycol (Miralax) 17 gm DAILYPRN PRN ORAL Constipation 04/18/16 16:45 05/16/16 12:59 04/20/16 21:36 Vitamin D (Vitamin D) 5,000 intlu DAILY ORAL 04/18/16 16:45 05/17/16 08:59 04/21/16 09:18 LINDSEY HILL M.D. Apr 21, 2016 21:38
--- NOTE | 2016-04-21 22:12 | General Progress Note ---
Assessment/Plan Status: doing well Assessment/Plan Diagnosis 1. Acute hypoxemic and hypercapnic respiratory failure requiring intubation. 2. Acute kidney injury. 3. Morbid obesity. 4. Hypokalemia 5. Diabetes mellitus. 6. Congestive heart failure. 7. Chronic obstructive pulmonary disease exacerbation 8. Pulmonary hypertension. 9. severe edema/anasarca 10. Acute anemia 11. Acute diastolic heart failure 12. left lower extremity cellulitis 13. Pneumonia 14. s/p extubation on 04/14/16 now on BiPap 15. ?yeast vaginitis 16. pleural effsuion 17. enterococus UTI plan: -transfered out of ICU on 04/16/16 -continue present care -daily labs -Biapap per Dr. Rene -finished course of IV antibiotics, monitor off abx per Dr. Milan -nephrology input appreciated -cardiology input appreciated -type and cross match for one unit of PRBC -continue lasix 80 mg po bid, I's and O's -continue pt/ot out of bed to cardiac chair -change pichardo, urinalysis and urine culture -spot lasix 20 mg once -continue zyvox per ID, diflucan for vaginitis for 3 days, pyridium for dysuria will request social work consult for, patient does not want to go back to [facility] at this time discussed with Nurse FULL code dc planning to rehab soon Subjective Date patient seen: Apr 21, 2016 Time patient seen: 22:07 Genitourinary: Reports: burning Allergies: Coded Allergies: AMOXICILLIN (Verified Allergy, Mild, RASH, 12/25/09) PENICILLINS (Unverified Allergy, Unknown, 04/06/16) All Systems: reviewed and negative except above Subjective tolerating oxygen during day and requiring Bipap at [facility] Objective Last 24 Hour Vital Signs Date Time Temp Pulse Resp B/P Pulse Ox O2 Delivery O2 Flow Rate FiO2 04/21/16 20:00 61 04/21/16 20:00 96.9 63 22 137/72 99 Venturi Mask 55 04/21/16 19:34 99 Venturi Mask 14.0 55 04/21/16 19:34 Venturi Mask 14.0 55 04/21/16 16:15 96.9 70 18 135/75 100 Venturi Mask 55 04/21/16 15:38 68 04/21/16 12:00 96.6 62 20 140/70 99 Venturi Mask 55 04/21/16 12:00 68 04/21/16 12:00 55 04/21/16 10:47 59 27 98 Facial 50 04/21/16 09:17 65 04/21/16 09:17 65 121/87 04/21/16 08:00 65 04/21/16 08:00 97.2 64 22 121/87 97 04/21/16 07:05 99 Venturi Mask 14.0 55 04/21/16 07:05 Venturi Mask 14.0 55 04/21/16 05:43 68 141/76 04/21/16 04:59 68 14 99 Facial 50 04/21/16 04:19 97.2 61 20 141/76 99 Bi-pap 50 04/21/16 04:07 63 04/21/16 04:00 50 04/21/16 02:47 70 18 99 Facial 50 04/21/16 00:40 62 22 100 Facial 50 04/21/16 00:00 97.0 61 20 135/82 96 Bi-pap 50 04/21/16 00:00 50 04/21/16 00:00 58 04/20/16 23:43 65 20 98 Facial 50 Intake and Output 04/20/16 04/21/16 19:00 07:00 Intake Total 240 ml 240 ml Output Total 500 ml 900 ml Balance -260 ml -660 ml Intake Oral 240 ml 240 ml Output Urine Total 500 ml 900 ml # Bowel Movements 1 Laboratory Tests 04/21/16 04:30: White Blood Count 4.7L, Red Blood Count 2.93L, Hemoglobin 8.0L, Hematocrit 27.2L , Mean Corpuscular Volume 93, Mean Corpuscular Hemoglobin 27.3, Mean Corpuscular Hemoglobin Concent 29.5L, Red Cell Distribution Width 16.0H, Platelet Count 227, Mean Platelet Volume 6.1L, Neutrophils (%) (Auto) 72.1, Lymphocytes (%) (Auto) 15.0L, Monocytes (%) (Auto) 8.4, Eosinophils (%) (Auto) 3.4H, Basophils (%) (Auto) 1.1, Sodium Level 147H, Potassium Level 4.0, Chloride Level 95L, Carbon Dioxide Level 41*H, Anion Gap 11, Blood Urea Nitrogen 41H, Creatinine 1.5H, Estimat Glomerular Filtration Rate , Glucose Level 115H, Calcium Level 8.8, Total Bilirubin 0.4, Aspartate Amino Transf (AST/ SGOT) 13, Alanine Aminotransferase (ALT/SGPT) 6, Alkaline Phosphatase 69, Pro-B- Type Natriuretic Peptide 7701H, Total Protein 7.1, Albumin 3.4L, Globulin 3.7, Albumin/Globulin Ratio 0.9L Height (Feet): 5 Height (Inches): 8.00 Weight (Pounds): 350 General Appearance: WD/WN, morbidly obese EENT: PERRL/EOMI Neck: normal alignment Cardiovascular: regular rhythm Respiratory/Chest: chest wall non-tender Abdomen: soft Genitourinary/Rectal: other - pichardo with sediment Extremities: normal range of motion, swelling Edema: no edema noted Arm (L), no edema noted Arm (R), 1+ Leg (L), 1+ Leg (R), 1+ Pedal (L), 1+ Pedal (R), 1+ Generalized Edema: moderate edema Neurologic: environmental emergencies planner II-XII grossly normal, alert, oriented x 3 Skin: normal pigmentation Lymphatic: normal anterior cervical (L), normal anterior cervical (R), normal axillary (L), normal axillary (R), normal inguinal (L), normal inguinal (R), normal other, normal posterior cervical (L), normal posterior cervical (R), normal submandibular (L), normal submandibular (R), normal supraclavicular (L), normal supraclavicular (R) Manny Nolan MD Apr 21, 2016 22:12
--- NOTE | 2016-04-21 22:50 | Diagnostic Imaging Report ---
APPROVED REPORT CPT Code: 10080 Present Symptoms Lower Extremity Pain: Bilateral Lower Extremity Edema: Bilateral Shortness of breath Comments: Technically difficult study due to patient body habitus. BILATERAL: Imaging reveals a patent deep venous system bilaterally. There is no evidence of thrombus within the femoral, popliteal or tibial segments. The greater saphenous veins are also within normal limits. Doppler indicates normal spontaneous flow within these segments.
[2016-04-22] VITALS (7 sets, daily range): BP systolic 142–159; BP diastolic 69–95
[2016-04-22] MEDS: NovoLOG Insulin Flexpen SUBQ SCH ×4 (06:27→21:39)
[2016-04-22] MEDS ORDERED: Phenazopyridine 200mg tab ORAL SCH (09:00)
[2016-04-22] MEDS: Calcium Carbonate 650mg Tab ORAL SCH ×3 (10:29→18:01)
[2016-04-22] MEDS: Pantoprazole Inj IV SCH (10:29)
[2016-04-22] MEDS: Digoxin Elixir 0.125mg ORAL SCH (10:30)
[2016-04-22] MEDS: Vitamin D 1000 IU Tab ORAL SCH (10:31)
[2016-04-22] MEDS: Furosemide 80mg tab ORAL SCH ×2 (10:32→21:33)
[2016-04-22] MEDS: Heparin 5000 units/ml inj SUBQ SCH ×2 (10:33→21:39)
[2016-04-22] MEDS: Nystatin Powder 100,000 units/gm 15gm TOPIC SCH ×3 (10:33→18:01)
--- NOTE | 2016-04-22 12:41 | Infectious Diseases Prog Note ---
Assessment/Plan Assessment/Plan A: The patient is a 75-year-old female with Leukocytosis , SP Sepsis, SP Pneumonia SCX: NL Fl Cxray : New or increased right pleural effusion LLExt Cellulitis SP probable UTI / Dysuria UCx : VRE repeat UCX : Neg VDRF , SP Obesity CHF HTN COPD GERD. DM PLAN: on Zyvox d# 6 / 7 , diflucan for vaginitis for 3 days,( as per PCP ) Monitor CBC Monitor BMP. Monitor renal function. Monitor CBC. Monitor chest x-ray. Subjective Constitutional: Denies: anorexia, chills, drenching sweats, fatigue, fever, no symptoms, other Allergies: Coded Allergies: AMOXICILLIN (Verified Allergy, Mild, RASH, 12/25/09) PENICILLINS (Unverified Allergy, Unknown, 04/06/16) Objective Vital Signs Last 24 Hour Vital Signs Date Time Temp Pulse Resp B/P Pulse Ox O2 Delivery O2 Flow Rate FiO2 04/22/16 12:00 65 04/22/16 10:30 63 04/22/16 10:30 63 145/81 04/22/16 08:00 96.8 65 30 145/81 98 Bi-pap 50 04/22/16 08:00 63 04/22/16 07:41 Bi-pap 50 04/22/16 07:40 97 Bi-pap 50 04/22/16 07:25 68 19 97 Facial 50 04/22/16 06:25 69 135/67 04/22/16 05:31 68 21 98 Facial 50 04/22/16 04:00 97.3 66 20 157/95 100 Bi-pap 50 04/22/16 03:50 63 04/22/16 03:42 67 26 98 Facial 50 04/22/16 03:40 50 04/22/16 00:08 69 04/22/16 00:00 97.6 65 20 153/75 99 Venturi Mask 55 04/21/16 22:08 61 137/72 04/21/16 20:00 61 04/21/16 20:00 96.9 63 22 137/72 99 Venturi Mask 55 04/21/16 19:34 99 Venturi Mask 14.0 55 04/21/16 19:34 Venturi Mask 14.0 55 04/21/16 16:15 96.9 70 18 135/75 100 Venturi Mask 55 04/21/16 15:38 68 Height (Feet): 5 Height (Inches): 8.00 Weight (Pounds): 350 HEENT: anicteric Respiratory/Chest: normal breath sounds Cardiovascular: regular rhythm Abdomen: no organomegaly Current Medications Medications (Trade) Dose Ordered Sig/Kalyn Route PRN Reason Start Time Stop Time Status Last Admin Dose Admin Acetaminophen (Tylenol) 650 mg Q4H PRN NG Fever/Headache/Mild Pain 04/16/16 13:00 05/16/16 12:59 Albuterol/ Ipratropium 3 ml 3 ml Q4HR PRN HHN Shortness of Breath/Congestion 04/21/16 17:30 04/26/16 17:29 Artificial Tears (Akwa-Tears) 2 drop Q2H PRN BOTH EYES Dry Eyes 04/16/16 13:00 05/16/16 12:59 Calcium Carbonate (Calcium Carbonate) 1,300 mg THREE TIMES A DAY ORAL 04/18/16 16:44 05/16/16 12:59 04/22/16 10:29 Dextrose (Dextrose 50%) STAT PRN IV Hypoglycemia 04/16/16 13:00 05/16/16 12:59 Digoxin (Lanoxin) 0.125 mg DAILY ORAL 04/18/16 16:44 05/17/16 08:59 04/22/16 10:30 Diltiazem HCl (Cardizem) 30 mg EVERY 8 HOURS ORAL 04/18/16 16:44 05/16/16 13:59 04/22/16 10:30 Fluconazole/ Sodium Chloride (Diflucan 200mg/ 100ml Premix) 100 ml @ 100 mls/hr Q24H IV 04/21/16 23:46 04/24/16 23:45 04/22/16 00:09 Furosemide (Lasix) 80 mg EVERY 12 HOURS ORAL 04/16/16 21:00 05/16/16 20:59 04/22/16 10:32 Heparin Sodium (Porcine) (Heparin 5000 units/ml) 5,000 units EVERY 12 HOURS SUBQ 04/16/16 21:00 05/16/16 20:59 04/22/16 10:33 Insulin Aspart (NovoLOG) AC+HS SUBQ 04/18/16 22:30 05/18/16 22:29 04/22/16 06:27 Linezolid (Zyvox) 600 mg EVERY 12 HOURS ORAL 04/17/16 21:00 04/23/16 23:59 04/22/16 10:30 Lorazepam (Ativan 2mg/ml 1ml) 0.5 mg Q4H PRN IV For Anxiety 04/16/16 13:00 04/23/16 12:59 Morphine Sulfate (Morphine Sulfate) 4 mg Q4H PRN IVP PAIN 4-10 04/16/16 13:00 04/23/16 12:59 04/19/16 05:08 Nystatin (Nystop Powder) 1 applic THREE TIMES A DAY TOPIC 04/16/16 13:00 05/16/16 12:59 04/22/16 10:33 Ondansetron HCl (Zofran) 4 mg Q6H PRN IVP Nausea & Vomiting 04/16/16 13:00 05/16/16 12:59 Pantoprazole (Protonix) 40 mg DAILY IV 04/17/16 09:00 05/17/16 08:59 04/22/16 10:29 Phenazopyridine HCl (Pyridium) 200 mg THREE TIMES A DAY ORAL 04/22/16 09:00 05/22/16 08:59 UNV Polyethylene Glycol (Miralax) 17 gm DAILYPRN PRN ORAL Constipation 04/18/16 16:45 05/16/16 12:59 04/20/16 21:36 Vitamin D (Vitamin D) 5,000 intlu DAILY ORAL 04/18/16 16:45 05/17/16 08:59 04/22/16 10:31 LINDSEY HILL M.D. Apr 22, 2016 12:41
--- NOTE | 2016-04-22 13:39 | General Progress Note ---
Assessment/Plan Status: stable Assessment/Plan status: Acute renal failure- Cr lower Acute Respiratory Failure, now extubated Anemia Morbid Obesity CHF ? Sepsis Plan: No labs today- post extubation care K supplement as needed- Calcium supplements with Vit D on board- Optimize cardiac and pulmonary status- Avoid Nephrotoxics- monitor renal parameters Urine studies- Keep BP over 100 syst Antibiotics Subjective ROS Limited/Unobtainable: No Constitutional: Reports: malaise, weakness Allergies: Coded Allergies: AMOXICILLIN (Verified Allergy, Mild, RASH, 12/25/09) PENICILLINS (Unverified Allergy, Unknown, 04/06/16) Objective Last 24 Hour Vital Signs Date Time Temp Pulse Resp B/P Pulse Ox O2 Delivery O2 Flow Rate FiO2 04/22/16 12:00 96.4 62 23 142/69 99 04/22/16 12:00 65 04/22/16 10:30 63 04/22/16 10:30 63 145/81 04/22/16 08:00 96.8 65 30 145/81 98 Bi-pap 50 04/22/16 08:00 63 04/22/16 07:41 Bi-pap 50 04/22/16 07:40 97 Bi-pap 50 04/22/16 07:25 68 19 97 Facial 50 04/22/16 06:25 69 135/67 04/22/16 05:31 68 21 98 Facial 50 04/22/16 04:00 97.3 66 20 157/95 100 Bi-pap 50 04/22/16 03:50 63 04/22/16 03:42 67 26 98 Facial 50 04/22/16 03:40 50 04/22/16 00:08 69 04/22/16 00:00 97.6 65 20 153/75 99 Venturi Mask 55 04/21/16 22:08 61 137/72 04/21/16 20:00 61 04/21/16 20:00 96.9 63 22 137/72 99 Venturi Mask 55 04/21/16 19:34 99 Venturi Mask 14.0 55 04/21/16 19:34 Venturi Mask 14.0 55 04/21/16 16:15 96.9 70 18 135/75 100 Venturi Mask 55 04/21/16 15:38 68 Intake and Output 04/21/16 04/22/16 19:00 07:00 Intake Total 200 ml 310 ml Output Total 250 ml 950 ml Balance -50 ml -640 ml Intake Oral 200 ml 210 ml IV Total 100 ml Output Urine Total 250 ml 950 ml Height (Feet): 5 Height (Inches): 8.00 Weight (Pounds): 350 General Appearance: mild distress Respiratory/Chest: decreased breath sounds Abdomen: soft Edema: 1+ Arm (L), 1+ Arm (R), 1+ Leg (L), 1+ Leg (R), 1+ Pedal (L), 1+ Pedal ( R), 1+ Generalized Objective other PE not changed COURTNEY LOPEZ Apr 22, 2016 13:39
[2016-04-22] MEDS ORDERED: Phenazopyridine 200mg tab ORAL ONE (14:30)
[2016-04-22] MEDS ORDERED: NS 275ml ONE (15:20)
--- NOTE | 2016-04-22 19:51 | Cardiac Electrophysiology PN ---
Assessment/Plan Assessment/Plan 1. Respiratory failure, due to chronic obstructive pulmonary disease and volume overload. On BIPAP and Lasix 80 po bid. Echocardiogram EF 55% to 60%. 2. Atrial fibrillation, rate controlled on Dig 0.125 and Cardizem 30 mg T.I.D. 3. HTN On Lasix and Cardizem. 4. Lower extremity cellulitis, on IV antibiotics 5. Morbid obesity. 6. CKD creatinine 1.5 7. DNI 8. Anemia, S/P Blood transfusion DW RN Subjective Subjective Had PRBC today. On BIPAP in [place]. Atrial Fib rate controlled . RN at bedside Objective Last 24 Hour Vital Signs Date Time Temp Pulse Resp B/P Pulse Ox O2 Delivery O2 Flow Rate FiO2 04/22/16 19:36 65 17 98 Facial 50 04/22/16 19:35 97 Bi-pap 50 04/22/16 17:36 Bi-pap 50 04/22/16 17:23 55 20 98 Facial 50 04/22/16 16:00 96.9 67 19 156/83 99 Venturi Mask 55 04/22/16 12:00 96.4 62 23 142/69 99 04/22/16 12:00 65 04/22/16 10:30 63 04/22/16 10:30 63 145/81 04/22/16 08:00 96.8 65 30 145/81 98 Bi-pap 50 04/22/16 08:00 63 04/22/16 07:41 Bi-pap 50 04/22/16 07:40 97 Bi-pap 50 04/22/16 07:25 68 19 97 Facial 50 04/22/16 06:25 69 135/67 04/22/16 05:31 68 21 98 Facial 50 04/22/16 04:00 97.3 66 20 157/95 100 Bi-pap 50 04/22/16 03:50 63 04/22/16 03:42 67 26 98 Facial 50 04/22/16 03:40 50 04/22/16 00:08 69 04/22/16 00:00 97.6 65 20 153/75 99 Venturi Mask 55 04/21/16 22:08 61 137/72 04/21/16 20:00 61 04/21/16 20:00 96.9 63 22 137/72 99 Venturi Mask 55 Intake and Output 04/21/16 04/22/16 19:00 07:00 Intake Total 200 ml 310 ml Output Total 250 ml 950 ml Balance -50 ml -640 ml Intake Oral 200 ml 210 ml IV Total 100 ml Output Urine Total 250 ml 950 ml Current Medications Medications (Trade) Dose Ordered Sig/Kalyn Route PRN Reason Start Time Stop Time Status Last Admin Dose Admin Acetaminophen (Tylenol) 650 mg Q4H PRN NG Fever/Headache/Mild Pain 04/16/16 13:00 05/16/16 12:59 Albuterol/ Ipratropium 3 ml 3 ml Q4HR PRN HHN Shortness of Breath/Congestion 04/21/16 17:30 04/26/16 17:29 Artificial Tears (Akwa-Tears) 2 drop Q2H PRN BOTH EYES Dry Eyes 04/16/16 13:00 05/16/16 12:59 Calcium Carbonate (Calcium Carbonate) 1,300 mg THREE TIMES A DAY ORAL 04/18/16 16:44 05/16/16 12:59 04/22/16 18:01 Dextrose (Dextrose 50%) STAT PRN IV Hypoglycemia 04/16/16 13:00 05/16/16 12:59 Digoxin (Lanoxin) 0.125 mg DAILY ORAL 04/18/16 16:44 05/17/16 08:59 04/22/16 10:30 Diltiazem HCl (Cardizem) 30 mg EVERY 8 HOURS ORAL 04/18/16 16:44 05/16/16 13:59 04/22/16 10:30 Fluconazole/ Sodium Chloride (Diflucan 200mg/ 100ml Premix) 100 ml @ 100 mls/hr Q24H IV 04/21/16 23:46 04/24/16 23:45 04/22/16 00:09 Furosemide (Lasix) 80 mg EVERY 12 HOURS ORAL 04/16/16 21:00 05/16/16 20:59 04/22/16 10:32 Heparin Sodium (Porcine) (Heparin 5000 units/ml) 5,000 units EVERY 12 HOURS SUBQ 04/16/16 21:00 05/16/16 20:59 04/22/16 10:33 Insulin Aspart (NovoLOG) AC+HS SUBQ 04/18/16 22:30 05/18/16 22:29 04/22/16 18:00 Linezolid (Zyvox) 600 mg EVERY 12 HOURS ORAL 04/17/16 21:00 04/23/16 23:59 04/22/16 10:30 Lorazepam (Ativan 2mg/ml 1ml) 0.5 mg Q4H PRN IV For Anxiety 04/16/16 13:00 04/23/16 12:59 Morphine Sulfate (Morphine Sulfate) 4 mg Q4H PRN IVP PAIN 4-10 04/16/16 13:00 04/23/16 12:59 04/19/16 05:08 Nystatin (Nystop Powder) 1 applic THREE TIMES A DAY TOPIC 04/16/16 13:00 05/16/16 12:59 04/22/16 18:01 Ondansetron HCl (Zofran) 4 mg Q6H PRN IVP Nausea & Vomiting 04/16/16 13:00 05/16/16 12:59 Pantoprazole (Protonix) 40 mg DAILY IV 04/17/16 09:00 05/17/16 08:59 04/22/16 10:29 Phenazopyridine HCl (Pyridium) 200 mg THREE TIMES A DAY ORAL 04/22/16 09:00 05/22/16 08:59 UNV Polyethylene Glycol (Miralax) 17 gm DAILYPRN PRN ORAL Constipation 04/18/16 16:45 05/16/16 12:59 04/20/16 21:36 Vitamin D (Vitamin D) 5,000 intlu DAILY ORAL 04/18/16 16:45 05/17/16 08:59 04/22/16 10:31 Objective HEAD AND NECK: No JVD LUNGS: Coarse rhonchi bilaterally. CARDIOVASCULAR: Irregularly irregular S1 and S2 with no gallop or murmur. ABDOMEN: Morbidly obese. EXTREMITIES: 1+ pitting edema.Left leg cellulitis. JOHN NUÑEZ Apr 22, 2016 19:51
--- NOTE | 2016-04-22 20:30 | General Progress Note ---
Assessment/Plan Assessment/Plan complaining of dysuria Diagnosis 1. Acute hypoxemic and hypercapnic respiratory failure requiring intubation. 2. Acute kidney injury. 3. Morbid obesity. 4. Hypokalemia 5. Diabetes mellitus. 6. Congestive heart failure. 7. Chronic obstructive pulmonary disease exacerbation 8. Pulmonary hypertension. 9. severe edema/anasarca 10. Acute anemia 11. Acute diastolic heart failure 12. left lower extremity cellulitis 13. Pneumonia 14. s/p extubation on 04/14/16 now on BiPap 15. ?yeast vaginitis 16. pleural effsuion 17. enterococus UTI plan: -transfered out of ICU on 04/16/16 -continue present care -daily labs -Biapap per Dr. Rene -finished course of IV antibiotics, monitor off abx per Dr. Milan -nephrology input appreciated -cardiology input appreciated -type and cross match for one unit of PRBC -continue lasix 80 mg po bid, I's and O's -continue pt/ot out of bed to cardiac chair -change pichardo, urinalysis and urine culture -spot lasix 20 mg once -continue zyvox per ID, diflucan for vaginitis for 2days, pyridium for dysuria will request social work consult for, patient does not want to go back to [facility] at this time discussed with Nurse FULL code dc planning to rehab soon dc pichardo secondary to discomfort Subjective Date patient seen: Apr 22, 2016 Time patient seen: 20:27 Genitourinary: Reports: burning, pain Allergies: Coded Allergies: AMOXICILLIN (Verified Allergy, Mild, RASH, 12/25/09) PENICILLINS (Unverified Allergy, Unknown, 04/06/16) Subjective tolerating oxygen during day and requiring Bipap at [facility] Objective Last 24 Hour Vital Signs Date Time Temp Pulse Resp B/P Pulse Ox O2 Delivery O2 Flow Rate FiO2 04/22/16 19:36 65 17 98 Facial 50 04/22/16 19:35 97 Bi-pap 50 04/22/16 17:36 Bi-pap 50 04/22/16 17:23 55 20 98 Facial 50 04/22/16 16:00 83 04/22/16 16:00 96.9 67 19 156/83 99 Venturi Mask 55 04/22/16 12:00 96.4 62 23 142/69 99 04/22/16 12:00 65 04/22/16 10:30 63 04/22/16 10:30 63 145/81 04/22/16 08:00 96.8 65 30 145/81 98 Bi-pap 50 04/22/16 08:00 63 04/22/16 07:41 Bi-pap 50 04/22/16 07:40 97 Bi-pap 50 04/22/16 07:25 68 19 97 Facial 50 04/22/16 06:25 69 135/67 04/22/16 05:31 68 21 98 Facial 50 04/22/16 04:00 97.3 66 20 157/95 100 Bi-pap 50 04/22/16 03:50 63 04/22/16 03:42 67 26 98 Facial 50 04/22/16 03:40 50 04/22/16 00:08 69 04/22/16 00:00 97.6 65 20 153/75 99 Venturi Mask 55 04/21/16 22:08 61 137/72 Intake and Output 04/21/16 04/22/16 19:00 07:00 Intake Total 200 ml 310 ml Output Total 250 ml 950 ml Balance -50 ml -640 ml Intake Oral 200 ml 210 ml IV Total 100 ml Output Urine Total 250 ml 950 ml Height (Feet): 5 Height (Inches): 8.00 Weight (Pounds): 350 General Appearance: no apparent distress, alert EENT: PERRL/EOMI Neck: non-tender Cardiovascular: normal peripheral pulses Respiratory/Chest: chest wall non-tender, lungs clear Abdomen: non tender Extremities: swelling Edema: 1+ Arm (L), 1+ Arm (R), 2+ Leg (L), 2+ Leg (R), 2+ Pedal (L), 2+ Pedal ( R), 2+ Generalized Neurologic: alert, oriented x 3 Lymphatic: normal anterior cervical (L), normal anterior cervical (R), normal axillary (L), normal axillary (R), normal inguinal (L), normal inguinal (R), normal other, normal posterior cervical (L), normal posterior cervical (R), normal submandibular (L), normal submandibular (R), normal supraclavicular (L), normal supraclavicular (R) Manny Nolan MD Apr 22, 2016 20:30
[2016-04-23] VITALS: BP 133/75
[2016-04-23] MEDS: Morphine Sulfate 4mg/ml Inj IVP PRN (02:09)
[2016-04-23 04:00] VITALS: BP 158/85
[2016-04-23 06:28] LABS: EOSINOPHILS % (AUTO) 4.8 % (0.0-3.0); LYMPHOCYTES % (AUTO) 16.2 % (20.0-45.0); MEAN CORPUSCULAR HEMOGLOBIN 27.6 PG (27.0-31.0); MEAN CORPUSCULAR HGB CONC 29.9 G/DL (32.0-36.0); MEAN CORPUSCULAR VOLUME 92 FL (80-99); MEAN PLATELET VOLUME 5.8 FL (6.5-10.1); MONOCYTES % (AUTO) 8.2 % (1.0-10.0); NEUTROPHILS % (AUTO) 69.8 % (45.0-75.0); PLATELET COUNT 241 K/UL (150-450); RED BLOOD COUNT 3.28 M/UL (4.20-5.40); RED CELL DISTRIBUTION WIDTH 16.1 % (11.6-14.8); WHITE BLOOD COUNT 4.3 K/UL (4.8-10.8)
[2016-04-23] MEDS: NovoLOG Insulin Flexpen SUBQ SCH ×4 (06:28→21:28)
[2016-04-23 07:01] LABS: MAGNESIUM 1.9 mg/dL (1.7-2.5); PHOSPHORUS 3.6 mg/dL (2.5-4.8); URIC ACID 11.4 mg/dL (3.0-7.5)
[2016-04-23 07:03] LABS: CRP QUANT 3.6 mg/dL (< 0.5)
[2016-04-23 07:05] LABS: ALANINE AMINOTRANSFERASE < 5 U/L (3-33); ALBUMIN/GLOBULIN RATIO 0.9 (1.0-2.7); ASPARTATE AMINO TRANSFERASE 13 U/L (5-40); CALCIUM 9.1 mg/dL (8.6-10.2); CHLORIDE 95 mEQ/L (98-107); CREATININE 1.7 mg/dL (0.5-0.9); HEMOLYSIS 2; POTASSIUM 4.1 mEQ/L (3.4-4.9); SODIUM 147 mEQ/L (135-145); TOTAL PROTEIN 7.2 g/dL (6.6-8.7)
[2016-04-23 07:15] LABS: ANION GAP 8 (5-15)
[2016-04-23 07:45] LABS: CARBON DIOXIDE 44 mEQ/L (20-30)
[2016-04-23 08:00] VITALS: BP 135/90
[2016-04-23] MEDS: Furosemide 80mg tab ORAL SCH ×2 (08:19→22:33)
[2016-04-23] MEDS: Vitamin D 1000 IU Tab ORAL SCH (08:20)
[2016-04-23] MEDS: Calcium Carbonate 650mg Tab ORAL SCH ×3 (08:20→18:19)
[2016-04-23] MEDS: Digoxin Elixir 0.125mg ORAL SCH (08:21)
[2016-04-23] MEDS: Pantoprazole Inj IV SCH (08:21)
[2016-04-23] MEDS: Heparin 5000 units/ml inj SUBQ SCH ×2 (08:22→21:16)
[2016-04-23] MEDS: Nystatin Powder 100,000 units/gm 15gm TOPIC SCH ×3 (08:22→18:19)
--- NOTE | 2016-04-23 08:25 | Infectious Diseases Prog Note ---
Assessment/Plan Assessment/Plan A: The patient is a 75-year-old female with Leukocytosis SP Sepsis SP Pneumonia SCX: NL Fl Cxray : New or increased right pleural effusion LLExt Cellulitis SP probable UTI / Dysuria UCx : VRE.faecium VDRF SP Obesity CHF COPD DM PCN allergy DNI PLAN: finishes Zyvox d# 7 / today , diflucan for vaginitis for 3 days ( as per PCP ) Monitor CBC Monitor BMP. Monitor renal function. Monitor CBC. Monitor chest x-ray. Subjective Allergies: Coded Allergies: AMOXICILLIN (Verified Allergy, Mild, RASH, 12/25/09) PENICILLINS (Unverified Allergy, Unknown, 04/06/16) Subjective remains afebrile. appears comfortable Objective Vital Signs Last 24 Hour Vital Signs Date Time Temp Pulse Resp B/P Pulse Ox O2 Delivery O2 Flow Rate FiO2 04/23/16 06:28 62 158/85 04/23/16 05:16 54 22 97 Facial 50 04/23/16 04:00 50 04/23/16 04:00 60 04/23/16 04:00 97.0 60 22 158/85 97 Bi-pap 50 04/23/16 02:27 57 23 96 Facial 50 04/23/16 00:38 71 24 99 Facial 50 04/23/16 00:00 50 04/23/16 00:00 59 04/23/16 00:00 96.6 53 22 133/75 100 Bi-pap 50 04/22/16 23:46 62 26 99 Facial 50 04/22/16 21:33 65 159/77 04/22/16 21:17 72 18 96 Facial 50 04/22/16 20:00 59 04/22/16 20:00 96.5 65 24 159/77 95 Bi-pap 50 04/22/16 19:36 65 17 98 Facial 50 04/22/16 19:35 97 Bi-pap 50 04/22/16 19:20 96.3 66 22 143/71 98 Venturi Mask 50 04/22/16 17:36 Bi-pap 50 04/22/16 17:23 55 20 98 Facial 50 04/22/16 16:00 83 04/22/16 16:00 96.9 67 19 156/83 99 Venturi Mask 55 04/22/16 12:00 96.4 62 23 142/69 99 04/22/16 12:00 65 04/22/16 10:30 63 04/22/16 10:30 63 145/81 Height (Feet): 5 Height (Inches): 8.00 Weight (Pounds): 350 General Appearance: no acute distress Respiratory/Chest: no respiratory distress Cardiovascular: normal rate, regular rhythm Abdomen: normal bowel sounds, soft, non tender, non distended Laboratory Tests Test 04/23/16 04:00 White Blood Count 4.3 K/UL (4.8-10.8) L Red Blood Count 3.28 M/UL (4.20-5.40) L Hemoglobin 9.0 G/DL (12.0-16.0) L Hematocrit 30.2 % (37.0-47.0) L Mean Corpuscular Volume 92 FL (80-99) Mean Corpuscular Hemoglobin 27.6 PG (27.0-31.0) Mean Corpuscular Hemoglobin Concent 29.9 G/DL (32.0-36.0) L Red Cell Distribution Width 16.1 % (11.6-14.8) H Platelet Count 241 K/UL (150-450) Mean Platelet Volume 5.8 FL (6.5-10.1) L Neutrophils (%) (Auto) 69.8 % (45.0-75.0) Lymphocytes (%) (Auto) 16.2 % (20.0-45.0) L Monocytes (%) (Auto) 8.2 % (1.0-10.0) Eosinophils (%) (Auto) 4.8 % (0.0-3.0) H Basophils (%) (Auto) 1.0 % (0.0-2.0) Sodium Level 147 mEQ/L (135-145) H Potassium Level 4.1 mEQ/L (3.4-4.9) Chloride Level 95 mEQ/L (98-107) L Carbon Dioxide Level 44 mEQ/L (20-30) *H Anion Gap 8 (5-15) Blood Urea Nitrogen 38 mg/dL (7-23) H Creatinine 1.7 mg/dL (0.5-0.9) H Estimat Glomerular Filtration Rate mL/min (>60) Glucose Level 98 mg/dL (74-106) Uric Acid 11.4 mg/dL (3.0-7.5) H Calcium Level 9.1 mg/dL (8.6-10.2) Phosphorus Level 3.6 mg/dL (2.5-4.8) Magnesium Level 1.9 mg/dL (1.7-2.5) Total Bilirubin 0.4 mg/dL (0.0-1.2) Gamma Glutamyl Transpeptidase 24 U/L (5-36) Aspartate Amino Transf (AST/SGOT) 13 U/L (5-40) Alanine Aminotransferase (ALT/SGPT) < 5 U/L (3-33) Alkaline Phosphatase 69 U/L (35-104) Total Creatine Kinase 53 U/L (26-140) C-Reactive Protein, Quantitative 3.6 mg/dL (< 0.5) H Pro-B-Type Natriuretic Peptide 7867 pg/mL (0-125) H Total Protein 7.2 g/dL (6.6-8.7) Albumin 3.5 g/dL (3.5-5.2) Globulin 3.7 g/dL Albumin/Globulin Ratio 0.9 (1.0-2.7) L Current Medications Medications (Trade) Dose Ordered Sig/Kalyn Route PRN Reason Start Time Stop Time Status Last Admin Dose Admin Acetaminophen (Tylenol) 650 mg Q4H PRN NG Fever/Headache/Mild Pain 04/16/16 13:00 05/16/16 12:59 Albuterol/ Ipratropium 3 ml 3 ml Q4HR PRN HHN Shortness of Breath/Congestion 04/21/16 17:30 04/26/16 17:29 Artificial Tears (Akwa-Tears) 2 drop Q2H PRN BOTH EYES Dry Eyes 04/16/16 13:00 05/16/16 12:59 Calcium Carbonate (Calcium Carbonate) 1,300 mg THREE TIMES A DAY ORAL 04/18/16 16:44 05/16/16 12:59 04/22/16 18:01 Dextrose (Dextrose 50%) STAT PRN IV Hypoglycemia 04/16/16 13:00 05/16/16 12:59 Digoxin (Lanoxin) 0.125 mg DAILY ORAL 04/18/16 16:44 05/17/16 08:59 04/22/16 10:30 Diltiazem HCl (Cardizem) 30 mg EVERY 8 HOURS ORAL 04/18/16 16:44 05/16/16 13:59 04/23/16 06:28 Fluconazole/ Sodium Chloride (Diflucan 200mg/ 100ml Premix) 100 ml @ 100 mls/hr Q24H IV 04/21/16 23:46 04/24/16 23:45 04/23/16 00:07 Furosemide (Lasix) 80 mg EVERY 12 HOURS ORAL 04/16/16 21:00 05/16/16 20:59 04/22/16 21:33 Heparin Sodium (Porcine) (Heparin 5000 units/ml) 5,000 units EVERY 12 HOURS SUBQ 04/16/16 21:00 05/16/16 20:59 04/22/16 21:39 Insulin Aspart (NovoLOG) AC+HS SUBQ 04/18/16 22:30 05/18/16 22:29 04/22/16 21:39 Linezolid (Zyvox) 600 mg EVERY 12 HOURS ORAL 04/17/16 21:00 04/23/16 23:59 04/22/16 21:33 Lorazepam (Ativan 2mg/ml 1ml) 0.5 mg Q4H PRN IV For Anxiety 04/16/16 13:00 04/23/16 12:59 Morphine Sulfate (Morphine Sulfate) 4 mg Q4H PRN IVP PAIN 4-10 04/16/16 13:00 04/23/16 12:59 04/23/16 02:09 Nystatin (Nystop Powder) 1 applic THREE TIMES A DAY TOPIC 04/16/16 13:00 05/16/16 12:59 04/22/16 18:01 Ondansetron HCl (Zofran) 4 mg Q6H PRN IVP Nausea & Vomiting 04/16/16 13:00 05/16/16 12:59 Pantoprazole (Protonix) 40 mg DAILY IV 04/17/16 09:00 05/17/16 08:59 04/22/16 10:29 Polyethylene Glycol (Miralax) 17 gm DAILYPRN PRN ORAL Constipation 04/18/16 16:45 05/16/16 12:59 04/20/16 21:36 Vitamin D (Vitamin D) 5,000 intlu DAILY ORAL 04/18/16 16:45 05/17/16 08:59 04/22/16 10:31 YARELIS ROBLES 17, 2017 08:24
[2016-04-23] MEDS ORDERED: Tubing IV Secondary IV ONE (10:21)
[2016-04-23] MEDS ORDERED: NS 275ml ONE (10:21)
--- NOTE | 2016-04-23 11:47 | Diagnostic Imaging Report ---
Indication: DYSPNEA Technique: One view of the chest Comparison: 04/20/2016 Findings: Left arm PICC again demonstrated, tip at the origin of the left innominate vein. The heart remains enlarged. There is persistent left basilar opacity, likely pleural fluid and consolidation. Mild interstitial prominence persists, unchanged. Impression: Unchanged, over 3 days, findings as above.
[2016-04-23 12:00] VITALS: BP 150/78
--- NOTE | 2016-04-23 14:08 | Pulmonology Progress Note ---
Assessment/Plan Problems: (1) Acute respiratory failure with hypoxia and hypercarbia (2) Pneumonia (3) COPD exacerbation (4) Atrial fibrillation with RVR (5) Morbid obesity Assessment/Plan still diuresing, so far 19 liters. respiratory treatment IV lasix 80 q12, bun/creatinine stable f/u intake and output continue antibiotics titrate fio2 to sat of 92% repeat BNP in am will continue diuresis as long as bun/creatinine are stable. Subjective ROS Limited/Unobtainable: No Interval Events: on bipap again Constitutional: Reports: no symptoms HEENT: Repors: no symptoms Allergies: Coded Allergies: AMOXICILLIN (Verified Allergy, Mild, RASH, 12/25/09) PENICILLINS (Unverified Allergy, Unknown, 04/06/16) Objective Last 24 Hour Vital Signs Date Time Temp Pulse Resp B/P Pulse Ox O2 Delivery O2 Flow Rate FiO2 04/23/16 13:49 65 150/78 04/23/16 13:11 58 18 98 Facial 50 04/23/16 11:24 63 22 95 Facial 50 04/23/16 08:21 67 04/23/16 08:00 97.0 69 18 135/90 91 Bi-pap 50 04/23/16 08:00 65 04/23/16 07:54 92 Nasal Cannula 5.0 04/23/16 07:54 Nasal Cannula 5.0 04/23/16 06:28 62 158/85 04/23/16 05:16 54 22 97 Facial 50 04/23/16 04:00 50 04/23/16 04:00 60 04/23/16 04:00 97.0 60 22 158/85 97 Bi-pap 50 04/23/16 02:27 57 23 96 Facial 50 04/23/16 00:38 71 24 99 Facial 50 04/23/16 00:00 50 04/23/16 00:00 59 04/23/16 00:00 96.6 53 22 133/75 100 Bi-pap 50 04/22/16 23:46 62 26 99 Facial 50 04/22/16 21:33 65 159/77 04/22/16 21:17 72 18 96 Facial 50 04/22/16 20:00 59 04/22/16 20:00 96.5 65 24 159/77 95 Bi-pap 50 04/22/16 19:36 65 17 98 Facial 50 04/22/16 19:35 97 Bi-pap 50 04/22/16 19:20 96.3 66 22 143/71 98 Venturi Mask 50 04/22/16 17:36 Bi-pap 50 04/22/16 17:23 55 20 98 Facial 50 04/22/16 16:00 83 04/22/16 16:00 96.9 67 19 156/83 99 Venturi Mask 55 Intake and Output 04/22/16 04/23/16 19:00 07:00 Intake Total 410 ml 500 ml Output Total 200 ml 1150 ml Balance 210 ml -650 ml Intake Oral 410 ml 400 ml IV Total 100 ml Output Urine Total 200 ml 1150 ml Objective General Appearance: WD/WN, dyspnic HEENT: normocephalic, anicteric Respiratory/Chest: chest wall non-tender, decreased breath sounds Cardiovascular: normal peripheral pulses, normal rate Abdomen: normal bowel sounds, soft, non tender Genitourinary: normal external genitalia Extremities: no cyanosis Skin: no rash Neurologic/Psychiatric: solution maker II-XII grossly normal Lymphatic: no neck adenopathy Laboratory Tests 04/23/16 04:00: White Blood Count 4.3L, Red Blood Count 3.28L, Hemoglobin 9.0L, Hematocrit 30.2L , Mean Corpuscular Volume 92, Mean Corpuscular Hemoglobin 27.6, Mean Corpuscular Hemoglobin Concent 29.9L, Red Cell Distribution Width 16.1H, Platelet Count 241, Mean Platelet Volume 5.8L, Neutrophils (%) (Auto) 69.8, Lymphocytes (%) (Auto) 16.2L, Monocytes (%) (Auto) 8.2, Eosinophils (%) (Auto) 4.8H, Basophils (%) (Auto) 1.0, Sodium Level 147H, Potassium Level 4.1, Chloride Level 95L, Carbon Dioxide Level 44*H, Anion Gap 8, Blood Urea Nitrogen 38H, Creatinine 1.7H, Estimat Glomerular Filtration Rate , Glucose Level 98, Uric Acid 11.4H, Calcium Level 9.1, Phosphorus Level 3.6, Magnesium Level 1.9, Total Bilirubin 0.4, Gamma Glutamyl Transpeptidase 24, Aspartate Amino Transf ( AST/SGOT) 13, Alanine Aminotransferase (ALT/SGPT) < 5, Alkaline Phosphatase 69, Total Creatine Kinase 53, C-Reactive Protein, Quantitative 3.6H, Pro-B-Type Natriuretic Peptide 7867H, Total Protein 7.2, Albumin 3.5, Globulin 3.7, Albumin /Globulin Ratio 0.9L Current Medications Medications (Trade) Dose Ordered Sig/Kalyn Route PRN Reason Start Time Stop Time Status Last Admin Dose Admin Acetaminophen (Tylenol) 650 mg Q4H PRN NG Fever/Headache/Mild Pain 04/16/16 13:00 05/16/16 12:59 Albuterol/ Ipratropium 3 ml 3 ml Q4HR PRN HHN Shortness of Breath/Congestion 04/21/16 17:30 04/26/16 17:29 Artificial Tears (Akwa-Tears) 2 drop Q2H PRN BOTH EYES Dry Eyes 04/16/16 13:00 05/16/16 12:59 Calcium Carbonate (Calcium Carbonate) 1,300 mg THREE TIMES A DAY ORAL 04/18/16 16:44 05/16/16 12:59 04/23/16 13:48 Dextrose (Dextrose 50%) STAT PRN IV Hypoglycemia 04/16/16 13:00 05/16/16 12:59 Digoxin (Lanoxin) 0.125 mg DAILY ORAL 04/18/16 16:44 05/17/16 08:59 04/23/16 08:21 Diltiazem HCl (Cardizem) 30 mg EVERY 8 HOURS ORAL 04/18/16 16:44 05/16/16 13:59 04/23/16 13:49 Fluconazole/ Sodium Chloride (Diflucan 200mg/ 100ml Premix) 100 ml @ 100 mls/hr Q24H IV 04/21/16 23:46 04/24/16 23:45 04/23/16 00:07 Furosemide (Lasix) 80 mg EVERY 12 HOURS ORAL 04/16/16 21:00 05/16/16 20:59 04/23/16 08:19 Heparin Sodium (Porcine) (Heparin 5000 units/ml) 5,000 units EVERY 12 HOURS SUBQ 04/16/16 21:00 05/16/16 20:59 04/23/16 08:22 Insulin Aspart (NovoLOG) AC+HS SUBQ 04/18/16 22:30 05/18/16 22:29 04/23/16 12:14 Linezolid (Zyvox) 600 mg EVERY 12 HOURS ORAL 04/17/16 21:00 04/23/16 23:59 04/23/16 08:19 Nystatin (Nystop Powder) 1 applic THREE TIMES A DAY TOPIC 04/16/16 13:00 05/16/16 12:59 04/23/16 13:48 Ondansetron HCl (Zofran) 4 mg Q6H PRN IVP Nausea & Vomiting 04/16/16 13:00 05/16/16 12:59 Pantoprazole (Protonix) 40 mg DAILY IV 04/17/16 09:00 05/17/16 08:59 04/23/16 08:21 Polyethylene Glycol (Miralax) 17 gm DAILYPRN PRN ORAL Constipation 04/18/16 16:45 05/16/16 12:59 04/20/16 21:36 Vitamin D (Vitamin D) 5,000 intlu DAILY ORAL 04/18/16 16:45 05/17/16 08:59 04/23/16 08:20 ARASH MIRANDA Apr 23, 2016 14:08
[2016-04-23 16:00] VITALS: BP 148/91
--- NOTE | 2016-04-23 16:55 | General Progress Note ---
Assessment/Plan Status: unchanged Status Narrative Cr higher 1.7- Bicarb remains high Assessment/Plan status: Acute renal failure- Cr lower Acute Respiratory Failure, now extubated Anemia Morbid Obesity CHF ? Sepsis Plan: post extubation care K supplement as needed- Calcium supplements with Vit D on board- Optimize cardiac and pulmonary status- Avoid Nephrotoxics- monitor renal parameters Urine studies- Keep BP over 100 syst Antibiotics Subjective ROS Limited/Unobtainable: No Constitutional: Reports: malaise, weakness Allergies: Coded Allergies: AMOXICILLIN (Verified Allergy, Mild, RASH, 12/25/09) PENICILLINS (Unverified Allergy, Unknown, 04/06/16) Objective Last 24 Hour Vital Signs Date Time Temp Pulse Resp B/P Pulse Ox O2 Delivery O2 Flow Rate FiO2 04/23/16 16:00 97.2 66 20 148/91 93 Venturi Mask 10.0 04/23/16 13:49 65 150/78 04/23/16 13:11 58 18 98 Facial 50 04/23/16 12:00 60 04/23/16 12:00 97.8 65 18 150/78 97 Bi-pap 50 04/23/16 11:24 63 22 95 Facial 50 04/23/16 08:21 67 04/23/16 08:00 97.0 69 18 135/90 91 Bi-pap 50 04/23/16 08:00 65 04/23/16 07:54 92 Nasal Cannula 5.0 04/23/16 07:54 Nasal Cannula 5.0 04/23/16 06:28 62 158/85 04/23/16 05:16 54 22 97 Facial 50 04/23/16 04:00 50 04/23/16 04:00 60 04/23/16 04:00 97.0 60 22 158/85 97 Bi-pap 50 04/23/16 02:27 57 23 96 Facial 50 04/23/16 00:38 71 24 99 Facial 50 04/23/16 00:00 50 04/23/16 00:00 59 04/23/16 00:00 96.6 53 22 133/75 100 Bi-pap 50 04/22/16 23:46 62 26 99 Facial 50 04/22/16 21:33 65 159/77 04/22/16 21:17 72 18 96 Facial 50 04/22/16 20:00 59 04/22/16 20:00 96.5 65 24 159/77 95 Bi-pap 50 04/22/16 19:36 65 17 98 Facial 50 04/22/16 19:35 97 Bi-pap 50 04/22/16 19:20 96.3 66 22 143/71 98 Venturi Mask 50 04/22/16 17:36 Bi-pap 50 04/22/16 17:23 55 20 98 Facial 50 Intake and Output 04/22/16 04/23/16 19:00 07:00 Intake Total 410 ml 500 ml Output Total 200 ml 1150 ml Balance 210 ml -650 ml Intake Oral 410 ml 400 ml IV Total 100 ml Output Urine Total 200 ml 1150 ml Laboratory Tests 04/23/16 04:00: White Blood Count 4.3L, Red Blood Count 3.28L, Hemoglobin 9.0L, Hematocrit 30.2L , Mean Corpuscular Volume 92, Mean Corpuscular Hemoglobin 27.6, Mean Corpuscular Hemoglobin Concent 29.9L, Red Cell Distribution Width 16.1H, Platelet Count 241, Mean Platelet Volume 5.8L, Neutrophils (%) (Auto) 69.8, Lymphocytes (%) (Auto) 16.2L, Monocytes (%) (Auto) 8.2, Eosinophils (%) (Auto) 4.8H, Basophils (%) (Auto) 1.0, Sodium Level 147H, Potassium Level 4.1, Chloride Level 95L, Carbon Dioxide Level 44*H, Anion Gap 8, Blood Urea Nitrogen 38H, Creatinine 1.7H, Estimat Glomerular Filtration Rate , Glucose Level 98, Uric Acid 11.4H, Calcium Level 9.1, Phosphorus Level 3.6, Magnesium Level 1.9, Total Bilirubin 0.4, Gamma Glutamyl Transpeptidase 24, Aspartate Amino Transf ( AST/SGOT) 13, Alanine Aminotransferase (ALT/SGPT) < 5, Alkaline Phosphatase 69, Total Creatine Kinase 53, C-Reactive Protein, Quantitative 3.6H, Pro-B-Type Natriuretic Peptide 7867H, Total Protein 7.2, Albumin 3.5, Globulin 3.7, Albumin /Globulin Ratio 0.9L Height (Feet): 5 Height (Inches): 8.00 Weight (Pounds): 350 General Appearance: mild distress Cardiovascular: normal rate, arrhythmia Respiratory/Chest: decreased breath sounds Abdomen: distended Objective other PE not changed COURTNEY LOPEZ Apr 23, 2016 16:55
--- NOTE | 2016-04-23 18:29 | Cardiac Electrophysiology PN ---
Assessment/Plan Assessment/Plan 1. Respiratory failure, due to chronic obstructive pulmonary disease and volume overload with BNP 7800. On BIPAP and Lasix 80 po bid. Echocardiogram EF 55% to 60%. 2. Atrial fibrillation, rate controlled on Dig 0.125 and Cardizem 30 mg T.I.D. 3. HTN On Lasix and Cardizem. 4. Lower extremity cellulitis, on IV antibiotics 5. Morbid obesity. 6. CKD creatinine 1.7 7. DNI 8. Anemia, S/P Blood transfusion DW RN Subjective Subjective On BIPAP in [place]. Atrial Fib rate controlled . RN at bedside. Taking off BIPAP for Dinner Objective Last 24 Hour Vital Signs Date Time Temp Pulse Resp B/P Pulse Ox O2 Delivery O2 Flow Rate FiO2 04/23/16 17:28 62 20 97 Facial 50 04/23/16 16:00 97.2 66 20 148/91 93 Venturi Mask 10.0 04/23/16 16:00 55 04/23/16 13:49 65 150/78 04/23/16 13:11 58 18 98 Facial 50 04/23/16 12:00 60 04/23/16 12:00 97.8 65 18 150/78 97 Bi-pap 50 04/23/16 11:24 63 22 95 Facial 50 04/23/16 08:21 67 04/23/16 08:00 97.0 69 18 135/90 91 Bi-pap 50 04/23/16 08:00 65 04/23/16 07:54 92 Nasal Cannula 5.0 04/23/16 07:54 Nasal Cannula 5.0 04/23/16 06:28 62 158/85 04/23/16 05:16 54 22 97 Facial 50 04/23/16 04:00 50 04/23/16 04:00 60 04/23/16 04:00 97.0 60 22 158/85 97 Bi-pap 50 04/23/16 02:27 57 23 96 Facial 50 04/23/16 00:38 71 24 99 Facial 50 04/23/16 00:00 50 04/23/16 00:00 59 04/23/16 00:00 96.6 53 22 133/75 100 Bi-pap 50 04/22/16 23:46 62 26 99 Facial 50 04/22/16 21:33 65 159/77 3/16/17 21:17 72 18 96 Facial 50 04/22/16 20:00 59 04/22/16 20:00 96.5 65 24 159/77 95 Bi-pap 50 04/22/16 19:36 65 17 98 Facial 50 04/22/16 19:35 97 Bi-pap 50 04/22/16 19:20 96.3 66 22 143/71 98 Venturi Mask 50 Intake and Output 04/22/16 04/23/16 19:00 07:00 Intake Total 410 ml 500 ml Output Total 200 ml 1150 ml Balance 210 ml -650 ml Intake Oral 410 ml 400 ml IV Total 100 ml Output Urine Total 200 ml 1150 ml Laboratory Tests Test 04/23/16 04:00 White Blood Count 4.3 K/UL (4.8-10.8) L Red Blood Count 3.28 M/UL (4.20-5.40) L Hemoglobin 9.0 G/DL (12.0-16.0) L Hematocrit 30.2 % (37.0-47.0) L Mean Corpuscular Volume 92 FL (80-99) Mean Corpuscular Hemoglobin 27.6 PG (27.0-31.0) Mean Corpuscular Hemoglobin Concent 29.9 G/DL (32.0-36.0) L Red Cell Distribution Width 16.1 % (11.6-14.8) H Platelet Count 241 K/UL (150-450) Mean Platelet Volume 5.8 FL (6.5-10.1) L Neutrophils (%) (Auto) 69.8 % (45.0-75.0) Lymphocytes (%) (Auto) 16.2 % (20.0-45.0) L Monocytes (%) (Auto) 8.2 % (1.0-10.0) Eosinophils (%) (Auto) 4.8 % (0.0-3.0) H Basophils (%) (Auto) 1.0 % (0.0-2.0) Sodium Level 147 mEQ/L (135-145) H Potassium Level 4.1 mEQ/L (3.4-4.9) Chloride Level 95 mEQ/L (98-107) L Carbon Dioxide Level 44 mEQ/L (20-30) *H Anion Gap 8 (5-15) Blood Urea Nitrogen 38 mg/dL (7-23) H Creatinine 1.7 mg/dL (0.5-0.9) H Estimat Glomerular Filtration Rate mL/min (>60) Glucose Level 98 mg/dL (74-106) Uric Acid 11.4 mg/dL (3.0-7.5) H Calcium Level 9.1 mg/dL (8.6-10.2) Phosphorus Level 3.6 mg/dL (2.5-4.8) Magnesium Level 1.9 mg/dL (1.7-2.5) Total Bilirubin 0.4 mg/dL (0.0-1.2) Gamma Glutamyl Transpeptidase 24 U/L (5-36) Aspartate Amino Transf (AST/SGOT) 13 U/L (5-40) Alanine Aminotransferase (ALT/SGPT) < 5 U/L (3-33) Alkaline Phosphatase 69 U/L (35-104) Total Creatine Kinase 53 U/L (26-140) C-Reactive Protein, Quantitative 3.6 mg/dL (< 0.5) H Pro-B-Type Natriuretic Peptide 7867 pg/mL (0-125) H Total Protein 7.2 g/dL (6.6-8.7) Albumin 3.5 g/dL (3.5-5.2) Globulin 3.7 g/dL Albumin/Globulin Ratio 0.9 (1.0-2.7) L Objective HEAD AND NECK: No JVD LUNGS: Coarse rhonchi bilaterally. CARDIOVASCULAR: Irregularly irregular S1 and S2 with no murmur. ABDOMEN: Morbidly obese. EXTREMITIES: 1+ pitting edema and leg cellulitis. JOHN NUÑEZ Apr 23, 2016 18:29
[2016-04-23 19:00] VITALS: BP 138/76
--- NOTE | 2016-04-23 19:10 | General Progress Note ---
Assessment/Plan Assessment/Plan complaining of dysuria Diagnosis 1. Acute hypoxemic and hypercapnic respiratory failure requiring intubation. 2. Acute kidney injury. 3. Morbid obesity. 4. Hypokalemia 5. Diabetes mellitus. 6. Congestive heart failure. 7. Chronic obstructive pulmonary disease exacerbation 8. Pulmonary hypertension. 9. severe edema/anasarca 10. Acute anemia 11. Acute diastolic heart failure 12. left lower extremity cellulitis 13. Pneumonia 14. s/p extubation on 04/14/16 now on BiPap 15. ?yeast vaginitis 16. pleural effsuion 17. enterococus UTI plan: -transfered out of ICU on 04/16/16 -continue present care -daily labs -Biapap per Dr. Rene -finished course of IV antibiotics, monitor off abx per Dr. Milan -nephrology input appreciated -cardiology input appreciated -type and cross match for one unit of PRBC -continue lasix 80 mg po bid, I's and O's -continue pt/ot out of bed to cardiac chair -change pichardo, urinalysis and urine culture -spot lasix 20 mg once -continue zyvox per ID, diflucan for vaginitis for 1 day, pyridium for dysuria will request social work consult for, patient does not want to go back to [facility] at this time discussed with Nurse FULL code dc planning to rehab soon repeat ua and reflex culture Subjective Date patient seen: Apr 23, 2016 Time patient seen: 19:08 Respiratory: Reports: shortness of breath Neurologic/Psychiatric: Reports: anxiety Allergies: Coded Allergies: AMOXICILLIN (Verified Allergy, Mild, RASH, 12/25/09) PENICILLINS (Unverified Allergy, Unknown, 04/06/16) Subjective tolerating oxygen during day and requiring Bipap at nigth Objective Last 24 Hour Vital Signs Date Time Temp Pulse Resp B/P Pulse Ox O2 Delivery O2 Flow Rate FiO2 04/23/16 17:28 62 20 97 Facial 50 04/23/16 16:00 97.2 66 20 148/91 93 Venturi Mask 10.0 04/23/16 16:00 55 04/23/16 13:49 65 150/78 04/23/16 13:11 58 18 98 Facial 50 04/23/16 12:00 60 04/23/16 12:00 97.8 65 18 150/78 97 Bi-pap 50 04/23/16 11:24 63 22 95 Facial 50 04/23/16 08:21 67 04/23/16 08:00 97.0 69 18 135/90 91 Bi-pap 50 04/23/16 08:00 65 04/23/16 07:54 92 Nasal Cannula 5.0 04/23/16 07:54 Nasal Cannula 5.0 04/23/16 06:28 62 158/85 04/23/16 05:16 54 22 97 Facial 50 04/23/16 04:00 50 04/23/16 04:00 60 04/23/16 04:00 97.0 60 22 158/85 97 Bi-pap 50 04/23/16 02:27 57 23 96 Facial 50 04/23/16 00:38 71 24 99 Facial 50 04/23/16 00:00 50 04/23/16 00:00 59 04/23/16 00:00 96.6 53 22 133/75 100 Bi-pap 50 04/22/16 23:46 62 26 99 Facial 50 04/22/16 21:33 65 159/77 04/22/16 21:17 72 18 96 Facial 50 04/22/16 20:00 59 04/22/16 20:00 96.5 65 24 159/77 95 Bi-pap 50 04/22/16 19:36 65 17 98 Facial 50 04/22/16 19:35 97 Bi-pap 50 04/22/16 19:20 96.3 66 22 143/71 98 Venturi Mask 50 Intake and Output 04/22/16 04/23/16 19:00 07:00 Intake Total 410 ml 500 ml Output Total 200 ml 1150 ml Balance 210 ml -650 ml Intake Oral 410 ml 400 ml IV Total 100 ml Output Urine Total 200 ml 1150 ml Laboratory Tests 04/23/16 04:00: White Blood Count 4.3L, Red Blood Count 3.28L, Hemoglobin 9.0L, Hematocrit 30.2L , Mean Corpuscular Volume 92, Mean Corpuscular Hemoglobin 27.6, Mean Corpuscular Hemoglobin Concent 29.9L, Red Cell Distribution Width 16.1H, Platelet Count 241, Mean Platelet Volume 5.8L, Neutrophils (%) (Auto) 69.8, Lymphocytes (%) (Auto) 16.2L, Monocytes (%) (Auto) 8.2, Eosinophils (%) (Auto) 4.8H, Basophils (%) (Auto) 1.0, Sodium Level 147H, Potassium Level 4.1, Chloride Level 95L, Carbon Dioxide Level 44*H, Anion Gap 8, Blood Urea Nitrogen 38H, Creatinine 1.7H, Estimat Glomerular Filtration Rate , Glucose Level 98, Uric Acid 11.4H, Calcium Level 9.1, Phosphorus Level 3.6, Magnesium Level 1.9, Total Bilirubin 0.4, Gamma Glutamyl Transpeptidase 24, Aspartate Amino Transf ( AST/SGOT) 13, Alanine Aminotransferase (ALT/SGPT) < 5, Alkaline Phosphatase 69, Total Creatine Kinase 53, C-Reactive Protein, Quantitative 3.6H, Pro-B-Type Natriuretic Peptide 7867H, Total Protein 7.2, Albumin 3.5, Globulin 3.7, Albumin /Globulin Ratio 0.9L Height (Feet): 5 Height (Inches): 8.00 Weight (Pounds): 350 General Appearance: morbidly obese EENT: PERRL/EOMI Neck: non-tender Cardiovascular: normal peripheral pulses Respiratory/Chest: chest wall non-tender, decreased breath sounds Pelvis: normal external exam Extremities: swelling Edema: no edema noted Arm (L), no edema noted Arm (R), 2+ Leg (L), 2+ Leg (R), 2+ Pedal (L), 2+ Pedal (R), 2+ Generalized Edema: moderate edema 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
[2016-04-24] VITALS: BP 141/67
[2016-04-24 04:00] VITALS: BP 138/79
[2016-04-24] MEDS: NovoLOG Insulin Flexpen SUBQ SCH ×4 (05:54→20:59)
[2016-04-24 06:13] LABS: BASOPHILS % (AUTO) 1.8 % (0.0-2.0); EOSINOPHILS % (AUTO) 5.5 % (0.0-3.0); LYMPHOCYTES % (AUTO) 19.8 % (20.0-45.0); MEAN CORPUSCULAR HGB CONC 30.4 G/DL (32.0-36.0); MEAN CORPUSCULAR VOLUME 92 FL (80-99); MEAN PLATELET VOLUME 5.6 FL (6.5-10.1); MONOCYTES % (AUTO) 10.2 % (1.0-10.0); NEUTROPHILS % (AUTO) 62.8 % (45.0-75.0); PLATELET COUNT 230 K/UL (150-450); RED BLOOD COUNT 3.17 M/UL (4.20-5.40); RED CELL DISTRIBUTION WIDTH 15.9 % (11.6-14.8); WHITE BLOOD COUNT 4.3 K/UL (4.8-10.8)
[2016-04-24 06:31] LABS: ALANINE AMINOTRANSFERASE 5 U/L (3-33); ALBUMIN/GLOBULIN RATIO 0.9 (1.0-2.7); ASPARTATE AMINO TRANSFERASE 11 U/L (5-40); CALCIUM 9.1 mg/dL (8.6-10.2); CHLORIDE 95 mEQ/L (98-107); CREATININE 1.7 mg/dL (0.5-0.9); HEMOLYSIS 1; POTASSIUM 4.2 mEQ/L (3.4-4.9); SODIUM 146 mEQ/L (135-145)
[2016-04-24 07:19] LABS: ANION GAP 6 (5-15); CARBON DIOXIDE 45 mEQ/L (20-30)
[2016-04-24 08:00] VITALS: BP 142/60
--- NOTE | 2016-04-24 09:09 | Infectious Diseases Prog Note ---
Assessment/Plan Assessment/Plan ASSESSMENT: The patient is a 75-year-old female with Leukocytosis SP Sepsis SP Pneumonia SCX: NL Fl SP Rx CXR 04/23: persistent left basilar opacity, likely pleural fluid and consolidation, unchanged. Mild interstitial prominence persists, unchanged. LLExt Cellulitis SP Rx probable UTI / Dysuria SP Rx UCx : VRE.faecium VDRF SP - on/off BiPAP Obesity CHF COPD DM PCN allergy DNI PLAN: diflucan for vaginitis for 3 days ( as per PCP ) ( 04/23 SP Zyvox d# 7 / ) Monitor CBC Monitor BMP. Monitor renal function. Monitor CBC. Monitor chest x-ray. BiPAP prn Subjective Allergies: Coded Allergies: AMOXICILLIN (Verified Allergy, Mild, RASH, 12/25/09) PENICILLINS (Unverified Allergy, Unknown, 04/06/16) Subjective remains afebrile. on/off BiPAP Objective Vital Signs Last 24 Hour Vital Signs Date Time Temp Pulse Resp B/P Pulse Ox O2 Delivery O2 Flow Rate FiO2 04/24/16 08:28 57 22 94 Facial 50 04/24/16 07:15 Bi-pap 50 04/24/16 07:14 57 21 100 Facial 50 04/24/16 07:14 100 Bi-pap 50 04/24/16 05:53 68 138/79 04/24/16 04:40 58 21 67 Facial 50 04/24/16 04:00 54 04/24/16 04:00 96.8 68 19 138/79 100 Bi-pap 50 04/24/16 03:15 62 19 97 Facial 50 04/24/16 01:06 59 19 97 Facial 50 04/24/16 00:00 96.6 54 22 141/67 100 Bi-pap 50 04/24/16 00:00 54 04/24/16 00:00 50 04/23/16 23:06 61 20 98 Facial 50 04/23/16 22:32 67 178/79 04/23/16 20:56 60 20 98 Facial 50 04/23/16 20:00 61 04/23/16 19:51 66 20 97 Facial 50 04/23/16 19:19 Venturi Mask 14.0 55 04/23/16 19:19 97 Venturi Mask 14.0 55 04/23/16 19:00 97.2 61 20 138/76 100 Nasal Cannula 5.0 04/23/16 17:28 62 20 97 Facial 50 04/23/16 16:00 97.2 66 20 148/91 93 Venturi Mask 10.0 04/23/16 16:00 55 04/23/16 13:49 65 150/78 04/23/16 13:11 58 18 98 Facial 50 04/23/16 12:00 60 04/23/16 12:00 97.8 65 18 150/78 97 Bi-pap 50 04/23/16 11:24 63 22 95 Facial 50 Height (Feet): 5 Height (Inches): 8.00 Weight (Pounds): 350 General Appearance: no acute distress Respiratory/Chest: no respiratory distress Cardiovascular: normal rate, regular rhythm Abdomen: normal bowel sounds, soft, non tender, non distended Laboratory Tests Test 04/24/16 05:30 White Blood Count 4.3 K/UL (4.8-10.8) L Red Blood Count 3.17 M/UL (4.20-5.40) L Hemoglobin 8.9 G/DL (12.0-16.0) L Hematocrit 29.3 % (37.0-47.0) L Mean Corpuscular Volume 92 FL (80-99) Mean Corpuscular Hemoglobin 28.0 PG (27.0-31.0) Mean Corpuscular Hemoglobin Concent 30.4 G/DL (32.0-36.0) L Red Cell Distribution Width 15.9 % (11.6-14.8) H Platelet Count 230 K/UL (150-450) Mean Platelet Volume 5.6 FL (6.5-10.1) L Neutrophils (%) (Auto) 62.8 % (45.0-75.0) Lymphocytes (%) (Auto) 19.8 % (20.0-45.0) L Monocytes (%) (Auto) 10.2 % (1.0-10.0) H Eosinophils (%) (Auto) 5.5 % (0.0-3.0) H Basophils (%) (Auto) 1.8 % (0.0-2.0) Sodium Level 146 mEQ/L (135-145) H Potassium Level 4.2 mEQ/L (3.4-4.9) Chloride Level 95 mEQ/L (98-107) L Carbon Dioxide Level 45 mEQ/L (20-30) *H Anion Gap 6 (5-15) Blood Urea Nitrogen 37 mg/dL (7-23) H Creatinine 1.7 mg/dL (0.5-0.9) H Estimat Glomerular Filtration Rate mL/min (>60) Glucose Level 108 mg/dL (74-106) H Calcium Level 9.1 mg/dL (8.6-10.2) Total Bilirubin 0.4 mg/dL (0.0-1.2) Aspartate Amino Transf (AST/SGOT) 11 U/L (5-40) Alanine Aminotransferase (ALT/SGPT) 5 U/L (3-33) Alkaline Phosphatase 66 U/L (35-104) Pro-B-Type Natriuretic Peptide 6942 pg/mL (0-125) H Total Protein 7.0 g/dL (6.6-8.7) Albumin 3.4 g/dL (3.5-5.2) L Globulin 3.6 g/dL Albumin/Globulin Ratio 0.9 (1.0-2.7) L Current Medications Medications (Trade) Dose Ordered Sig/Kalyn Route PRN Reason Start Time Stop Time Status Last Admin Dose Admin Acetaminophen (Tylenol) 650 mg Q4H PRN NG Fever/Headache/Mild Pain 04/16/16 13:00 05/16/16 12:59 Albuterol/ Ipratropium 3 ml 3 ml Q4HR PRN HHN Shortness of Breath/Congestion 04/21/16 17:30 04/26/16 17:29 Artificial Tears (Akwa-Tears) 2 drop Q2H PRN BOTH EYES Dry Eyes 04/16/16 13:00 05/16/16 12:59 Calcium Carbonate (Calcium Carbonate) 1,300 mg THREE TIMES A DAY ORAL 04/18/16 16:44 05/16/16 12:59 04/23/16 18:19 Dextrose (Dextrose 50%) STAT PRN IV Hypoglycemia 04/16/16 13:00 05/16/16 12:59 Digoxin (Lanoxin) 0.125 mg DAILY ORAL 04/18/16 16:44 05/17/16 08:59 04/23/16 08:21 Diltiazem HCl (Cardizem) 30 mg EVERY 8 HOURS ORAL 04/18/16 16:44 05/16/16 13:59 04/24/16 05:53 Fluconazole/ Sodium Chloride (Diflucan 200mg/ 100ml Premix) 100 ml @ 100 mls/hr Q24H IV 04/21/16 23:46 04/24/16 23:45 04/23/16 23:50 Furosemide (Lasix) 80 mg EVERY 12 HOURS ORAL 04/16/16 21:00 05/16/16 20:59 04/23/16 22:33 Heparin Sodium (Porcine) (Heparin 5000 units/ml) 5,000 units EVERY 12 HOURS SUBQ 04/16/16 21:00 05/16/16 20:59 04/23/16 21:16 Insulin Aspart (NovoLOG) AC+HS SUBQ 04/18/16 22:30 05/18/16 22:29 04/24/16 05:54 Nystatin (Nystop Powder) 1 applic THREE TIMES A DAY TOPIC 04/16/16 13:00 05/16/16 12:59 04/23/16 18:19 Ondansetron HCl (Zofran) 4 mg Q6H PRN IVP Nausea & Vomiting 04/16/16 13:00 05/16/16 12:59 Pantoprazole (Protonix) 40 mg DAILY IV 04/17/16 09:00 05/17/16 08:59 04/23/16 08:21 Polyethylene Glycol (Miralax) 17 gm DAILYPRN PRN ORAL Constipation 04/18/16 16:45 05/16/16 12:59 04/20/16 21:36 Vitamin D (Vitamin D) 5,000 intlu DAILY ORAL 04/18/16 16:45 05/17/16 08:59 04/23/16 08:20 YARELIS ROBLES 18, 2017 09:09
[2016-04-24] MEDS: Pantoprazole Inj IV SCH (10:50)
[2016-04-24] MEDS: Vitamin D 1000 IU Tab ORAL SCH (11:00)
[2016-04-24] MEDS: Digoxin Elixir 0.125mg ORAL SCH (11:00)
[2016-04-24] MEDS: Furosemide 80mg tab ORAL SCH ×2 (11:01→20:52)
[2016-04-24] MEDS: Calcium Carbonate 650mg Tab ORAL SCH ×3 (11:01→19:22)
[2016-04-24] MEDS: Nystatin Powder 100,000 units/gm 15gm TOPIC SCH ×3 (11:02→19:22)
[2016-04-24] MEDS: Heparin 5000 units/ml inj SUBQ SCH ×2 (11:05→20:52)
[2016-04-24 12:00] VITALS: BP 130/74
--- NOTE | 2016-04-24 12:25 | Diagnostic Imaging Report ---
Indication: Dyspnea Comparison: 04/23/16 A single view chest radiograph was obtained. Findings: Mild vascular congestion and cardiomegaly are demonstrated. There is probably some improvement since the previous day in this regard. Impression: Mild CHF slightly improved
--- NOTE | 2016-04-24 13:13 | Pulmonology Progress Note ---
Assessment/Plan Assessment/Plan ASSESSMENT acute hypoxemic hypercapnic respiratory failure requiring intubation s/p extubation on BiPAP VERONICA DM morbid obesity acute diastolic CHF exacerbation pulmonary HTN COPD exacerbation anemia s/p blood transfusion PNA pleural effusion UTI A fib HTN LE cellulitis PLAN OF CARE [place] status remains on BiPAP, unable to wean ABG in am pulmonary toilet continue diuresis monitor I/O , renal parameters, lytes avoid nephrotoxic renal US negative nephro follows renal parameters no significant changes monitor HH, s/p 1 u PRBC transfusion, HH at baseline PT/OT GI prophylaxis bowel regimen pain management ECHO with EF 55-60% cardio follows remains in A fib rate control with Cardizem and Digoxin BP management with Lasix and Cardizem BS management with SS of insulin urine cx + VR; E sputum cx negative; blood cx negative abx s/p Rx for cellulitis DNI status case discussed and evaluated by supervising physician Subjective Allergies: Coded Allergies: AMOXICILLIN (Verified Allergy, Mild, RASH, 12/25/09) PENICILLINS (Unverified Allergy, Unknown, 04/06/16) Subjective on BiPAP unable to wean so far afebrile, no leukocytosis renal parameters without significant change Objective Last 24 Hour Vital Signs Date Time Temp Pulse Resp B/P Pulse Ox O2 Delivery O2 Flow Rate FiO2 04/24/16 12:00 58 04/24/16 11:00 63 04/24/16 10:58 63 27 99 Facial 50 04/24/16 08:28 57 22 94 Facial 50 04/24/16 08:00 61 04/24/16 08:00 97.0 61 20 142/60 95 Bi-pap 50 04/24/16 07:15 Bi-pap 50 04/24/16 07:14 57 21 100 Facial 50 04/24/16 07:14 100 Bi-pap 50 04/24/16 05:53 68 138/79 04/24/16 04:40 58 21 67 Facial 50 04/24/16 04:00 54 04/24/16 04:00 96.8 68 19 138/79 100 Bi-pap 50 04/24/16 03:15 62 19 97 Facial 50 04/24/16 01:06 59 19 97 Facial 50 04/24/16 00:00 96.6 54 22 141/67 100 Bi-pap 50 04/24/16 00:00 54 04/24/16 00:00 50 04/23/16 23:06 61 20 98 Facial 50 04/23/16 22:32 67 178/79 04/23/16 20:56 60 20 98 Facial 50 04/23/16 20:00 61 04/23/16 19:51 66 20 97 Facial 50 04/23/16 19:19 Venturi Mask 14.0 55 04/23/16 19:19 97 Venturi Mask 14.0 55 04/23/16 19:00 97.2 61 20 138/76 100 Nasal Cannula 5.0 04/23/16 17:28 62 20 97 Facial 50 04/23/16 16:00 97.2 66 20 148/91 93 Venturi Mask 10.0 04/23/16 16:00 55 04/23/16 13:49 65 150/78 Intake and Output 04/23/16 04/24/16 19:00 07:00 Intake Total 670 ml 460 ml Balance 670 ml 460 ml Intake Oral 670 ml 360 ml IV Total 100 ml # Voids 1 8 General Appearance: other - morbidly obese bedridden female on BiPAP with mild distress HEENT: normocephalic, atraumatic, other - BiPAP mask on, BiPAP 18/ FiO2 50% Respiratory/Chest: chest wall non-tender, decreased breath sounds, accessory muscle use - intermittent Cardiovascular: normal rate, irregularly irregular, edema - trace edema Abdomen: normal bowel sounds, soft, non tender - obese Neurologic/Psychiatric: abnormal gait, alert, responsive Musculoskeletal: atrophy - BLE Laboratory Tests 04/24/16 05:30: White Blood Count 4.3L, Red Blood Count 3.17L, Hemoglobin 8.9L, Hematocrit 29.3L , Mean Corpuscular Volume 92, Mean Corpuscular Hemoglobin 28.0, Mean Corpuscular Hemoglobin Concent 30.4L, Red Cell Distribution Width 15.9H, Platelet Count 230, Mean Platelet Volume 5.6L, Neutrophils (%) (Auto) 62.8, Lymphocytes (%) (Auto) 19.8L, Monocytes (%) (Auto) 10.2H, Eosinophils (%) (Auto ) 5.5H, Basophils (%) (Auto) 1.8, Sodium Level 146H, Potassium Level 4.2, Chloride Level 95L, Carbon Dioxide Level 45*H, Anion Gap 6, Blood Urea Nitrogen 37H, Creatinine 1.7H, Estimat Glomerular Filtration Rate , Glucose Level 108H, Calcium Level 9.1, Total Bilirubin 0.4, Aspartate Amino Transf (AST/SGOT) 11, Alanine Aminotransferase (ALT/SGPT) 5, Alkaline Phosphatase 66, Pro-B-Type Natriuretic Peptide 6942H, Total Protein 7.0, Albumin 3.4L, Globulin 3.6, Albumin/Globulin Ratio 0.9L Current Medications Medications (Trade) Dose Ordered Sig/Kalyn Route PRN Reason Start Time Stop Time Status Last Admin Dose Admin Acetaminophen (Tylenol) 650 mg Q4H PRN NG Fever/Headache/Mild Pain 04/16/16 13:00 05/16/16 12:59 Albuterol/ Ipratropium 3 ml 3 ml Q4HR PRN HHN Shortness of Breath/Congestion 04/21/16 17:30 04/26/16 17:29 Artificial Tears (Akwa-Tears) 2 drop Q2H PRN BOTH EYES Dry Eyes 04/16/16 13:00 05/16/16 12:59 Calcium Carbonate (Calcium Carbonate) 1,300 mg THREE TIMES A DAY ORAL 04/18/16 16:44 05/16/16 12:59 04/24/16 11:01 Dextrose (Dextrose 50%) STAT PRN IV Hypoglycemia 04/16/16 13:00 05/16/16 12:59 Digoxin (Lanoxin) 0.125 mg DAILY ORAL 04/18/16 16:44 05/17/16 08:59 04/24/16 11:00 Diltiazem HCl (Cardizem) 30 mg EVERY 8 HOURS ORAL 04/18/16 16:44 05/16/16 13:59 04/24/16 05:53 Fluconazole/ Sodium Chloride (Diflucan 200mg/ 100ml Premix) 100 ml @ 100 mls/hr Q24H IV 04/21/16 23:46 04/24/16 23:45 04/23/16 23:50 Furosemide (Lasix) 80 mg EVERY 12 HOURS ORAL 04/16/16 21:00 05/16/16 20:59 04/24/16 11:01 Heparin Sodium (Porcine) (Heparin 5000 units/ml) 5,000 units EVERY 12 HOURS SUBQ 04/16/16 21:00 05/16/16 20:59 04/24/16 11:05 Insulin Aspart (NovoLOG) AC+HS SUBQ 04/18/16 22:30 05/18/16 22:29 04/24/16 12:03 Nystatin (Nystop Powder) 1 applic THREE TIMES A DAY TOPIC 04/16/16 13:00 05/16/16 12:59 04/24/16 11:02 Ondansetron HCl (Zofran) 4 mg Q6H PRN IVP Nausea & Vomiting 04/16/16 13:00 05/16/16 12:59 Pantoprazole (Protonix) 40 mg DAILY IV 04/17/16 09:00 05/17/16 08:59 04/24/16 10:50 Polyethylene Glycol (Miralax) 17 gm DAILYPRN PRN ORAL Constipation 04/18/16 16:45 05/16/16 12:59 04/20/16 21:36 Vitamin D (Vitamin D) 5,000 intlu DAILY ORAL 04/18/16 16:45 05/17/16 08:59 04/24/16 11:00 Jaquelin Xie NP (Vanchtein) Apr 24, 2016 13:13
--- NOTE | 2016-04-24 14:51 | Cardiac Electrophysiology PN ---
Assessment/Plan Assessment/Plan 1. Respiratory failure, due to chronic obstructive pulmonary disease and volume overload with BNP 7800. On BIPAP and Lasix 80 po bid. EF 55% to 60%. 2. Atrial fibrillation, rate controlled on Dig 0.125 and Cardizem 30 mg T.I.D. Off coumadin for severe anemia s/p Transfusion. 3. HTN On Lasix and Cardizem. 4. Lower extremity cellulitis, on IV antibiotics 5. Morbid obesity. 6. CKD creatinine 1.7 7. DNI 8. Anemia, S/P Blood transfusion DW RN Subjective Subjective On BIPAP and PO lasix 80 bid. In [place]. Atrial Fib rate controlled . RN at bedside. Objective Last 24 Hour Vital Signs Date Time Temp Pulse Resp B/P Pulse Ox O2 Delivery O2 Flow Rate FiO2 04/24/16 12:00 97.3 68 16 130/74 94 Nasal Cannula 4.0 04/24/16 12:00 58 04/24/16 11:00 63 04/24/16 10:58 63 27 99 Facial 50 04/24/16 08:28 57 22 94 Facial 50 04/24/16 08:00 61 04/24/16 08:00 97.0 61 20 142/60 95 Bi-pap 50 04/24/16 07:15 Bi-pap 50 04/24/16 07:14 57 21 100 Facial 50 04/24/16 07:14 100 Bi-pap 50 04/24/16 05:53 68 138/79 04/24/16 04:40 58 21 67 Facial 50 04/24/16 04:00 54 04/24/16 04:00 96.8 68 19 138/79 100 Bi-pap 50 04/24/16 03:15 62 19 97 Facial 50 04/24/16 01:06 59 19 97 Facial 50 04/24/16 00:00 96.6 54 22 141/67 100 Bi-pap 50 04/24/16 00:00 54 04/24/16 00:00 50 04/23/16 23:06 61 20 98 Facial 50 04/23/16 22:32 67 178/79 04/23/16 20:56 60 20 98 Facial 50 04/23/16 20:00 61 04/23/16 19:51 66 20 97 Facial 50 04/23/16 19:19 Venturi Mask 14.0 55 04/23/16 19:19 97 Venturi Mask 14.0 55 04/23/16 19:00 97.2 61 20 138/76 100 Nasal Cannula 5.0 04/23/16 17:28 62 20 97 Facial 50 04/23/16 16:00 97.2 66 20 148/91 93 Venturi Mask 10.0 04/23/16 16:00 55 Intake and Output 04/23/16 04/24/16 19:00 07:00 Intake Total 670 ml 460 ml Balance 670 ml 460 ml Intake Oral 670 ml 360 ml IV Total 100 ml # Voids 1 8 Laboratory Tests Test 04/24/16 05:30 White Blood Count 4.3 K/UL (4.8-10.8) L Red Blood Count 3.17 M/UL (4.20-5.40) L Hemoglobin 8.9 G/DL (12.0-16.0) L Hematocrit 29.3 % (37.0-47.0) L Mean Corpuscular Volume 92 FL (80-99) Mean Corpuscular Hemoglobin 28.0 PG (27.0-31.0) Mean Corpuscular Hemoglobin Concent 30.4 G/DL (32.0-36.0) L Red Cell Distribution Width 15.9 % (11.6-14.8) H Platelet Count 230 K/UL (150-450) Mean Platelet Volume 5.6 FL (6.5-10.1) L Neutrophils (%) (Auto) 62.8 % (45.0-75.0) Lymphocytes (%) (Auto) 19.8 % (20.0-45.0) L Monocytes (%) (Auto) 10.2 % (1.0-10.0) H Eosinophils (%) (Auto) 5.5 % (0.0-3.0) H Basophils (%) (Auto) 1.8 % (0.0-2.0) Sodium Level 146 mEQ/L (135-145) H Potassium Level 4.2 mEQ/L (3.4-4.9) Chloride Level 95 mEQ/L (98-107) L Carbon Dioxide Level 45 mEQ/L (20-30) *H Anion Gap 6 (5-15) Blood Urea Nitrogen 37 mg/dL (7-23) H Creatinine 1.7 mg/dL (0.5-0.9) H Estimat Glomerular Filtration Rate mL/min (>60) Glucose Level 108 mg/dL (74-106) H Calcium Level 9.1 mg/dL (8.6-10.2) Total Bilirubin 0.4 mg/dL (0.0-1.2) Aspartate Amino Transf (AST/SGOT) 11 U/L (5-40) Alanine Aminotransferase (ALT/SGPT) 5 U/L (3-33) Alkaline Phosphatase 66 U/L (35-104) Pro-B-Type Natriuretic Peptide 6942 pg/mL (0-125) H Total Protein 7.0 g/dL (6.6-8.7) Albumin 3.4 g/dL (3.5-5.2) L Globulin 3.6 g/dL Albumin/Globulin Ratio 0.9 (1.0-2.7) L Objective HEAD AND NECK: No JVD LUNGS: Coarse rhonchi bilaterally. CARDIOVASCULAR: Irregularly irregular S1 and S2 with no murmur. ABDOMEN: Morbidly obese. EXTREMITIES: 1+ pitting edema and leg cellulitis. JOHN NUÑEZ Apr 24, 2016 14:51
[2016-04-24 16:30] VITALS: BP 155/72
--- NOTE | 2016-04-24 17:19 | General Progress Note ---
Assessment/Plan Status: progressing Assessment/Plan Diagnosis 1. Acute hypoxemic and hypercapnic respiratory failure requiring intubation. 2. Acute kidney injury. 3. Morbid obesity. 4. Hypokalemia 5. Diabetes mellitus. 6. Congestive heart failure. 7. Chronic obstructive pulmonary disease exacerbation 8. Pulmonary hypertension. 9. severe edema/anasarca 10. Acute anemia 11. Acute diastolic heart failure 12. left lower extremity cellulitis 13. Pneumonia 14. s/p extubation on 04/14/16 now on BiPap 15. ?yeast vaginitis 16. pleural effsuion 17. enterococus UTI plan: -transfered out of ICU on 04/16/16 -continue present care -daily labs -Biapap per Dr. Rene -finished course of IV antibiotics, monitor off abx per Dr. Milan -nephrology input appreciated -cardiology input appreciated -type and cross match for one unit of PRBC -continue lasix 80 mg po bid, I's and O's -continue pt/ot out of bed to cardiac chair -change pichardo, urinalysis and urine culture -spot lasix 20 mg once -continue zyvox per ID, diflucan for vaginitis for 1 day, pyridium for dysuria will request social work consult for, patient does not want to go back to [facility] at this time discussed with Nurse FULL code dc planning to [facility] replace kylee Subjective Date patient seen: Apr 24, 2016 Time patient seen: 17:16 Respiratory: Reports: shortness of breath Allergies: Coded Allergies: AMOXICILLIN (Verified Allergy, Mild, RASH, 12/25/09) PENICILLINS (Unverified Allergy, Unknown, 04/06/16) Subjective tolerating oxygen during day and requiring Bipap at [facility] Objective Last 24 Hour Vital Signs Date Time Temp Pulse Resp B/P Pulse Ox O2 Delivery O2 Flow Rate FiO2 04/24/16 16:30 97.0 63 20 155/72 97 Bi-pap 04/24/16 15:10 52 20 98 Facial 50 04/24/16 14:00 52 130/74 04/24/16 12:00 97.3 68 16 130/74 94 Nasal Cannula 4.0 04/24/16 12:00 58 04/24/16 11:00 63 04/24/16 10:58 63 27 99 Facial 50 04/24/16 08:28 57 22 94 Facial 50 04/24/16 08:00 61 04/24/16 08:00 97.0 61 20 142/60 95 Bi-pap 50 04/24/16 07:15 Bi-pap 50 04/24/16 07:14 57 21 100 Facial 50 04/24/16 07:14 100 Bi-pap 50 04/24/16 05:53 68 138/79 04/24/16 04:40 58 21 67 Facial 50 04/24/16 04:00 54 04/24/16 04:00 96.8 68 19 138/79 100 Bi-pap 50 04/24/16 03:15 62 19 97 Facial 50 04/24/16 01:06 59 19 97 Facial 50 04/24/16 00:00 96.6 54 22 141/67 100 Bi-pap 50 04/24/16 00:00 54 04/24/16 00:00 50 04/23/16 23:06 61 20 98 Facial 50 04/23/16 22:32 67 178/79 04/23/16 20:56 60 20 98 Facial 50 04/23/16 20:00 61 04/23/16 19:51 66 20 97 Facial 50 04/23/16 19:19 Venturi Mask 14.0 55 04/23/16 19:19 97 Venturi Mask 14.0 55 04/23/16 19:00 97.2 61 20 138/76 100 Nasal Cannula 5.0 04/23/16 17:28 62 20 97 Facial 50 Intake and Output 04/23/16 04/24/16 19:00 07:00 Intake Total 670 ml 460 ml Balance 670 ml 460 ml Intake Oral 670 ml 360 ml IV Total 100 ml # Voids 1 8 Laboratory Tests 04/24/16 05:30: White Blood Count 4.3L, Red Blood Count 3.17L, Hemoglobin 8.9L, Hematocrit 29.3L , Mean Corpuscular Volume 92, Mean Corpuscular Hemoglobin 28.0, Mean Corpuscular Hemoglobin Concent 30.4L, Red Cell Distribution Width 15.9H, Platelet Count 230, Mean Platelet Volume 5.6L, Neutrophils (%) (Auto) 62.8, Lymphocytes (%) (Auto) 19.8L, Monocytes (%) (Auto) 10.2H, Eosinophils (%) (Auto ) 5.5H, Basophils (%) (Auto) 1.8, Sodium Level 146H, Potassium Level 4.2, Chloride Level 95L, Carbon Dioxide Level 45*H, Anion Gap 6, Blood Urea Nitrogen 37H, Creatinine 1.7H, Estimat Glomerular Filtration Rate , Glucose Level 108H, Calcium Level 9.1, Total Bilirubin 0.4, Aspartate Amino Transf (AST/SGOT) 11, Alanine Aminotransferase (ALT/SGPT) 5, Alkaline Phosphatase 66, Pro-B-Type Natriuretic Peptide 6942H, Total Protein 7.0, Albumin 3.4L, Globulin 3.6, Albumin/Globulin Ratio 0.9L Height (Feet): 5 Height (Inches): 8.00 Weight (Pounds): 350 General Appearance: morbidly obese EENT: PERRL/EOMI Neck: non-tender Cardiovascular: normal peripheral pulses Respiratory/Chest: lungs clear Abdomen: normal bowel sounds Extremities: swelling Edema: no edema noted Arm (L), no edema noted Arm (R), 2+ Leg (L), 2+ Leg (R), 2+ Pedal (L), 2+ Pedal (R), 2+ Generalized Edema: moderate edema Neurologic: dredge master II-XII grossly normal, alert, oriented x 3 Skin: normal pigmentation Lymphatic: normal anterior cervical (L), normal anterior cervical (R), normal axillary (L), normal axillary (R), normal inguinal (L), normal inguinal (R), normal other, normal posterior cervical (L), normal posterior cervical (R), normal submandibular (L), normal submandibular (R), normal supraclavicular (L), normal supraclavicular (R) Manny Nolan MD Apr 24, 2016 17:19
[2016-04-24 20:00] VITALS: BP 135/59
[2016-04-25] VITALS: BP 115/67
[2016-04-25 01:21] LABS: ABG PCO2 82.4 mmHg (35.0-45.0)
[2016-04-25 01:22] LABS: ABG ALLEN TEST POSITIVE; ABG BASE EXCESS 17.7
[2016-04-25 04:00] VITALS: BP 131/71
[2016-04-25] MEDS: NovoLOG Insulin Flexpen SUBQ SCH ×4 (05:56→20:41)
[2016-04-25 05:57] LABS: BASOPHILS % (AUTO) 1.5 % (0.0-2.0); EOSINOPHILS % (AUTO) 6.1 % (0.0-3.0); LYMPHOCYTES % (AUTO) 23.3 % (20.0-45.0); MEAN CORPUSCULAR HEMOGLOBIN 27.9 PG (27.0-31.0); MEAN CORPUSCULAR HGB CONC 30.1 G/DL (32.0-36.0); MEAN CORPUSCULAR VOLUME 93 FL (80-99); MEAN PLATELET VOLUME 5.3 FL (6.5-10.1); MONOCYTES % (AUTO) 8.4 % (1.0-10.0); NEUTROPHILS % (AUTO) 60.8 % (45.0-75.0); PLATELET COUNT 222 K/UL (150-450); RED BLOOD COUNT 3.03 M/UL (4.20-5.40); RED CELL DISTRIBUTION WIDTH 16.7 % (11.6-14.8); WHITE BLOOD COUNT 3.9 K/UL (4.8-10.8)
[2016-04-25 06:51] LABS: CALCIUM 9.1 mg/dL (8.6-10.2); CHLORIDE 97 mEQ/L (98-107); CREATININE 1.6 mg/dL (0.5-0.9); HEMOLYSIS 0; POTASSIUM 4.3 mEQ/L (3.4-4.9); SODIUM 148 mEQ/L (135-145)
[2016-04-25 06:57] LABS: ANION GAP 5 (5-15)
[2016-04-25 07:04] LABS: CARBON DIOXIDE 46 mEQ/L (20-30)
[2016-04-25 08:00] VITALS: BP 136/92
[2016-04-25] MEDS: Digoxin Elixir 0.125mg ORAL SCH (09:00)
--- NOTE | 2016-04-25 09:16 | Infectious Diseases Prog Note ---
Assessment/Plan Assessment/Plan ASSESSMENT: The patient is a 75-year-old female with Leukocytosis SP Sepsis SP Pneumonia SCX: NL Fl SP Rx CXR 04/23: persistent left basilar opacity, likely pleural fluid and consolidation, unchanged. Mild interstitial prominence persists, unchanged. LLExt Cellulitis SP Rx probable UTI / Dysuria SP Rx UCx : VRE.faecium VDRF SP - on/off BiPAP Obesity CHF COPD DM PCN allergy DNI PLAN: monitor pt off of ABX ( SP fluconazole ) ( 04/23 SP Zyvox d# 7 / ) Monitor CBC, temperatures, re-culture if acute change Monitor BMP. Monitor renal function. Monitor CBC. Monitor chest x-ray. BiPAP prn Subjective Allergies: Coded Allergies: AMOXICILLIN (Verified Allergy, Mild, RASH, 12/25/09) PENICILLINS (Unverified Allergy, Unknown, 04/06/16) Subjective remains afebrile. on/off BiPAP Objective Vital Signs Last 24 Hour Vital Signs Date Time Temp Pulse Resp B/P Pulse Ox O2 Delivery O2 Flow Rate FiO2 04/25/16 08:00 50 04/25/16 07:21 71 25 98 Facial 50 04/25/16 07:20 99 Bi-pap 50 04/25/16 07:20 Bi-pap 50 04/25/16 05:57 62 131/71 04/25/16 04:33 62 26 99 Facial 50 04/25/16 04:29 62 26 99 Facial 50 04/25/16 04:00 62 04/25/16 04:00 50 04/25/16 04:00 97.5 62 18 131/71 99 Bi-pap 50 04/25/16 03:04 69 22 96 Facial 50 04/25/16 00:57 65 20 98 Facial 50 04/25/16 00:00 97.5 56 19 115/67 100 Bi-pap 50 04/25/16 00:00 55 04/24/16 22:59 68 20 98 Facial 50 04/24/16 22:00 56 132/62 04/24/16 21:24 68 21 99 Facial 50 04/24/16 21:24 99 Bi-pap 50 04/24/16 21:24 Bi-pap 50 04/24/16 20:00 97.2 58 20 135/59 100 Bi-pap 04/24/16 20:00 61 04/24/16 17:22 70 25 100 Facial 50 04/24/16 16:30 97.0 63 20 155/72 97 Bi-pap 04/24/16 16:00 61 04/24/16 15:10 52 20 98 Facial 50 04/24/16 14:00 52 130/74 04/24/16 12:00 97.3 68 16 130/74 94 Nasal Cannula 4.0 04/24/16 12:00 58 04/24/16 11:00 63 04/24/16 10:58 63 27 99 Facial 50 Height (Feet): 5 Height (Inches): 8.00 Weight (Pounds): 350 General Appearance: no acute distress Respiratory/Chest: decreased breath sounds Cardiovascular: normal rate, regular rhythm Abdomen: normal bowel sounds, soft, non tender, non distended Laboratory Tests Test 04/25/16 01:00 04/25/16 04:00 Arterial Blood pH 7.365 (7.350-7.450) Arterial Blood Partial Pressure CO2 82.4 mmHg (35.0-45.0) *H Arterial Blood Partial Pressure O2 43.6 mmHg (75.0-100.0) Arterial Blood HCO3 46.0 mmol/L (22.0-26.0) H Arterial Blood Oxygen Saturation 77.7 % (92.0-98.0) L Arterial Blood Base Excess 17.7 Mike Test Positive White Blood Count 3.9 K/UL (4.8-10.8) L Red Blood Count 3.03 M/UL (4.20-5.40) L Hemoglobin 8.4 G/DL (12.0-16.0) L Hematocrit 28.1 % (37.0-47.0) L Mean Corpuscular Volume 93 FL (80-99) Mean Corpuscular Hemoglobin 27.9 PG (27.0-31.0) Mean Corpuscular Hemoglobin Concent 30.1 G/DL (32.0-36.0) L Red Cell Distribution Width 16.7 % (11.6-14.8) H Platelet Count 222 K/UL (150-450) Mean Platelet Volume 5.3 FL (6.5-10.1) L Neutrophils (%) (Auto) 60.8 % (45.0-75.0) Lymphocytes (%) (Auto) 23.3 % (20.0-45.0) Monocytes (%) (Auto) 8.4 % (1.0-10.0) Eosinophils (%) (Auto) 6.1 % (0.0-3.0) H Basophils (%) (Auto) 1.5 % (0.0-2.0) Sodium Level 148 mEQ/L (135-145) H Potassium Level 4.3 mEQ/L (3.4-4.9) Chloride Level 97 mEQ/L (98-107) L Carbon Dioxide Level 46 mEQ/L (20-30) *H Anion Gap 5 (5-15) Blood Urea Nitrogen 34 mg/dL (7-23) H Creatinine 1.6 mg/dL (0.5-0.9) H Estimat Glomerular Filtration Rate mL/min (>60) Glucose Level 93 mg/dL (74-106) Calcium Level 9.1 mg/dL (8.6-10.2) Current Medications Medications (Trade) Dose Ordered Sig/Kalyn Route PRN Reason Start Time Stop Time Status Last Admin Dose Admin Acetaminophen (Tylenol) 650 mg Q4H PRN NG Fever/Headache/Mild Pain 04/16/16 13:00 05/16/16 12:59 Albuterol/ Ipratropium (DuoNeb 0.5-3(2.5)mg/3ml) 3 ml Q4HR PRN HHN Shortness of Breath/Congestion 04/21/16 17:30 04/26/16 17:29 Artificial Tears (Akwa-Tears) 2 drop Q2H PRN BOTH EYES Dry Eyes 04/16/16 13:00 05/16/16 12:59 Calcium Carbonate (Calcium Carbonate) 1,300 mg THREE TIMES A DAY ORAL 04/18/16 16:44 05/16/16 12:59 04/24/16 19:22 Dextrose (Dextrose 50%) STAT PRN IV Hypoglycemia 04/16/16 13:00 05/16/16 12:59 Digoxin (Lanoxin) 0.125 mg DAILY ORAL 04/18/16 16:44 05/17/16 08:59 04/24/16 11:00 Diltiazem HCl (Cardizem) 30 mg EVERY 8 HOURS ORAL 04/18/16 16:44 05/16/16 13:59 04/25/16 05:57 Furosemide (Lasix) 80 mg EVERY 12 HOURS ORAL 04/16/16 21:00 05/16/16 20:59 04/24/16 20:52 Heparin Sodium (Porcine) (Heparin 5000 units/ml) 5,000 units EVERY 12 HOURS SUBQ 04/16/16 21:00 05/16/16 20:59 04/24/16 20:52 Insulin Aspart (NovoLOG) AC+HS SUBQ 04/18/16 22:30 05/18/16 22:29 04/25/16 05:56 Nystatin (Nystop Powder) 1 applic THREE TIMES A DAY TOPIC 04/16/16 13:00 05/16/16 12:59 04/24/16 19:22 Ondansetron HCl (Zofran) 4 mg Q6H PRN IVP Nausea & Vomiting 04/16/16 13:00 05/16/16 12:59 Pantoprazole (Protonix) 40 mg DAILY IV 04/17/16 09:00 05/17/16 08:59 04/24/16 10:50 Polyethylene Glycol (Miralax) 17 gm DAILYPRN PRN ORAL Constipation 04/18/16 16:45 05/16/16 12:59 04/20/16 21:36 Vitamin D (Vitamin D) 5,000 intlu DAILY ORAL 04/18/16 16:45 05/17/16 08:59 04/24/16 11:00 YARELIS ROBLES 19, 2017 09:16
[2016-04-25] MEDS: Pantoprazole Inj IV SCH (09:17)
[2016-04-25] MEDS: Furosemide 80mg tab ORAL SCH ×2 (09:17→20:40)
[2016-04-25] MEDS: Calcium Carbonate 650mg Tab ORAL SCH ×3 (09:17→17:24)
[2016-04-25] MEDS: Vitamin D 1000 IU Tab ORAL SCH (09:18)
[2016-04-25] MEDS: Nystatin Powder 100,000 units/gm 15gm TOPIC SCH ×3 (09:18→17:34)
[2016-04-25] MEDS: Heparin 5000 units/ml inj SUBQ SCH ×2 (09:20→20:41)
--- NOTE | 2016-04-25 09:55 | Pulmonology Progress Note ---
Assessment/Plan Assessment/Plan ASSESSMENT acute hypoxemic hypercapnic respiratory failure requiring intubation s/p extubation persistent respiratory failure with hypercapnia , on BiPAP probable [place] DM morbid obesity acute diastolic CHF exacerbation pulmonary HTN COPD exacerbation anemia s/p blood transfusion PNA pleural effusion UTI A fib HTN LE cellulitis PLAN OF C[facility] [place] status remains on BiPAP, unable to wean ABG with severe hypoxemia and hypercapnia, clinically patient saturated over 90% on Bipap, likely venous sample will repeat ABG in am pulmonary toilet continue diuresis CXR 04/24 Mild CHF slightly improved monitor I/O , renal parameters, lytes avoid nephrotoxic renal US negative nephro follows renal parameters no significant changes monitor HH, s/p 1 u PRBC transfusion, HH at baseline PT/OT GI prophylaxis bowel regimen pain management ECHO with EF 55-60% cardio follows remains in A fib rate control with Cardizem and Digoxin BP management with Lasix and Cardizem BS management with SS of insulin urine cx + VR; E sputum cx negative; blood cx negative abx s/p Rx for cellulitis DNI status case discussed and evaluated by supervising physician Subjective Allergies: Coded Allergies: AMOXICILLIN (Verified Allergy, Mild, RASH, 12/25/09) PENICILLINS (Unverified Allergy, Unknown, 04/06/16) Subjective on BiPAP unable to wean so far afebrile, no leukocytosis renal parameters without significant change Objective Last 24 Hour Vital Signs Date Time Temp Pulse Resp B/P Pulse Ox O2 Delivery O2 Flow Rate FiO2 04/25/16 09:28 73 36 99 Full Face 50 04/25/16 09:00 55 04/25/16 08:00 50 04/25/16 07:21 71 25 98 Facial 50 04/25/16 07:20 99 Bi-pap 50 04/25/16 07:20 Bi-pap 50 04/25/16 05:57 62 131/71 04/25/16 04:33 62 26 99 Facial 50 04/25/16 04:29 62 26 99 Facial 50 04/25/16 04:00 62 04/25/16 04:00 50 04/25/16 04:00 97.5 62 18 131/71 99 Bi-pap 50 04/25/16 03:04 69 22 96 Facial 50 04/25/16 00:57 65 20 98 Facial 50 04/25/16 00:00 97.5 56 19 115/67 100 Bi-pap 50 04/25/16 00:00 55 04/24/16 22:59 68 20 98 Facial 50 04/24/16 22:00 56 132/62 04/24/16 21:24 68 21 99 Facial 50 04/24/16 21:24 99 Bi-pap 50 04/24/16 21:24 Bi-pap 50 04/24/16 20:00 97.2 58 20 135/59 100 Bi-pap 04/24/16 20:00 61 04/24/16 17:22 70 25 100 Facial 50 04/24/16 16:30 97.0 63 20 155/72 97 Bi-pap 04/24/16 16:00 61 04/24/16 15:10 52 20 98 Facial 50 04/24/16 14:00 52 130/74 04/24/16 12:00 97.3 68 16 130/74 94 Nasal Cannula 4.0 04/24/16 12:00 58 04/24/16 11:00 63 04/24/16 10:58 63 27 99 Facial 50 Intake and Output 04/24/16 04/25/16 19:00 07:00 Intake Total 560 ml Output Total 800 ml Balance -240 ml Intake Oral 560 ml Output Urine Total 800 ml # Voids 1 1 # Bowel Movements 1 Objective General Appearance: other - morbidly obese bedridden female on BiPAP with mild distress HEENT: normocephalic, atraumatic, other - BiPAP mask on, BiPAP 18/6 FiO2 50% Respiratory/Chest: chest wall non-tender, decreased breath sounds, accessory muscle use - intermittent Cardiovascular: normal rate, irregularly irregular, trace edema BLE Abdomen: normal bowel sounds, soft, non tender - obese Neurologic/Psychiatric: abnormal gait, alert, responsive Musculoskeletal: atrophy - BLE Laboratory Tests 04/25/16 01:00: Arterial Blood pH 7.365, Arterial Blood Partial Pressure CO2 82.4*H, Arterial Blood Partial Pressure O2 43.6*L, Arterial Blood HCO3 46.0H, Arterial Blood Oxygen Saturation 77.7L, Arterial Blood Base Excess 17.7, Mike Test Positive 04/25/16 04:00: White Blood Count 3.9L, Red Blood Count 3.03L, Hemoglobin 8.4L, Hematocrit 28.1L , Mean Corpuscular Volume 93, Mean Corpuscular Hemoglobin 27.9, Mean Corpuscular Hemoglobin Concent 30.1L, Red Cell Distribution Width 16.7H, Platelet Count 222, Mean Platelet Volume 5.3L, Neutrophils (%) (Auto) 60.8, Lymphocytes (%) (Auto) 23.3, Monocytes (%) (Auto) 8.4, Eosinophils (%) (Auto) 6.1H, Basophils (%) (Auto) 1.5, Sodium Level 148H, Potassium Level 4.3, Chloride Level 97L, Carbon Dioxide Level 46*H, Anion Gap 5, Blood Urea Nitrogen 34H, Creatinine 1.6H, Estimat Glomerular Filtration Rate , Glucose Level 93, Calcium Level 9.1 Current Medications Medications (Trade) Dose Ordered Sig/Kalyn Route PRN Reason Start Time Stop Time Status Last Admin Dose Admin Acetaminophen (Tylenol) 650 mg Q4H PRN NG Fever/Headache/Mild Pain 04/16/16 13:00 05/16/16 12:59 Albuterol/ Ipratropium (DuoNeb 0.5-3(2.5)mg/3ml) 3 ml Q4HR PRN HHN Shortness of Breath/Congestion 04/21/16 17:30 04/26/16 17:29 Artificial Tears (Akwa-Tears) 2 drop Q2H PRN BOTH EYES Dry Eyes 04/16/16 13:00 05/16/16 12:59 Calcium Carbonate (Calcium Carbonate) 1,300 mg THREE TIMES A DAY ORAL 04/18/16 16:44 05/16/16 12:59 04/25/16 09:17 Dextrose (Dextrose 50%) STAT PRN IV Hypoglycemia 04/16/16 13:00 05/16/16 12:59 Digoxin (Lanoxin) 0.125 mg DAILY ORAL 04/18/16 16:44 05/17/16 08:59 04/24/16 11:00 Diltiazem HCl (Cardizem) 30 mg EVERY 8 HOURS ORAL 04/18/16 16:44 05/16/16 13:59 04/25/16 05:57 Furosemide (Lasix) 80 mg EVERY 12 HOURS ORAL 04/16/16 21:00 05/16/16 20:59 04/25/16 09:17 Heparin Sodium (Porcine) (Heparin 5000 units/ml) 5,000 units EVERY 12 HOURS SUBQ 04/16/16 21:00 05/16/16 20:59 04/25/16 09:20 Insulin Aspart (NovoLOG) AC+HS SUBQ 04/18/16 22:30 05/18/16 22:29 04/25/16 05:56 Nystatin (Nystop Powder) 1 applic THREE TIMES A DAY TOPIC 04/16/16 13:00 05/16/16 12:59 04/25/16 09:18 Ondansetron HCl (Zofran) 4 mg Q6H PRN IVP Nausea & Vomiting 04/16/16 13:00 05/16/16 12:59 Pantoprazole (Protonix) 40 mg DAILY IV 04/17/16 09:00 05/17/16 08:59 04/25/16 09:17 Polyethylene Glycol (Miralax) 17 gm DAILYPRN PRN ORAL Constipation 04/18/16 16:45 05/16/16 12:59 04/20/16 21:36 Vitamin D (Vitamin D) 5,000 intlu DAILY ORAL 04/18/16 16:45 05/17/16 08:59 04/25/16 09:18 Jaquelin Xie NP ([facility]) Apr 25, 2016 09:55
[2016-04-25 12:00] VITALS: BP 128/74
--- NOTE | 2016-04-25 14:54 | General Progress Note ---
Assessment/Plan Status: stable Status Narrative Cr 1.6 stable Assessment/Plan status: Acute renal failure- Cr lower Acute Respiratory Failure, now extubated Anemia Morbid Obesity CHF ? Sepsis Plan: post extubation care K supplement as needed- Calcium supplements with Vit D on board- Optimize cardiac and pulmonary status- Avoid Nephrotoxics- monitor renal parameters Urine studies- Keep BP over 100 syst Antibiotics Subjective ROS Limited/Unobtainable: No Allergies: Coded Allergies: AMOXICILLIN (Verified Allergy, Mild, RASH, 12/25/09) PENICILLINS (Unverified Allergy, Unknown, 04/06/16) Objective Last 24 Hour Vital Signs Date Time Temp Pulse Resp B/P Pulse Ox O2 Delivery O2 Flow Rate FiO2 04/25/16 13:29 62 128/74 04/25/16 13:18 56 18 100 Facial 50 04/25/16 12:00 50 04/25/16 12:00 50 04/25/16 12:00 97.2 62 24 128/74 100 Bi-pap 50 04/25/16 11:13 68 22 99 Facial 50 04/25/16 09:28 73 36 99 Full Face 50 04/25/16 09:00 55 04/25/16 08:00 50 04/25/16 08:00 97.2 61 17 136/92 100 Bi-pap 50 04/25/16 08:00 57 04/25/16 07:21 71 25 98 Facial 50 04/25/16 07:20 99 Bi-pap 50 04/25/16 07:20 Bi-pap 50 04/25/16 05:57 62 131/71 04/25/16 04:33 62 26 99 Facial 50 04/25/16 04:29 62 26 99 Facial 50 04/25/16 04:00 62 04/25/16 04:00 50 04/25/16 04:00 97.5 62 18 131/71 99 Bi-pap 50 04/25/16 03:04 69 22 96 Facial 50 04/25/16 00:57 65 20 98 Facial 50 04/25/16 00:00 97.5 56 19 115/67 100 Bi-pap 50 04/25/16 00:00 55 04/24/16 22:59 68 20 98 Facial 50 04/24/16 22:00 56 132/62 04/24/16 21:24 68 21 99 Facial 50 04/24/16 21:24 99 Bi-pap 50 04/24/16 21:24 Bi-pap 50 04/24/16 20:00 97.2 58 20 135/59 100 Bi-pap 04/24/16 20:00 61 04/24/16 17:22 70 25 100 Facial 50 04/24/16 16:30 97.0 63 20 155/72 97 Bi-pap 04/24/16 16:00 61 04/24/16 15:10 52 20 98 Facial 50 Intake and Output 04/24/16 04/25/16 19:00 07:00 Intake Total 560 ml Output Total 800 ml Balance -240 ml Intake Oral 560 ml Output Urine Total 800 ml # Voids 1 1 # Bowel Movements 1 Laboratory Tests 04/25/16 01:00: Arterial Blood pH 7.365, Arterial Blood Partial Pressure CO2 82.4*H, Arterial Blood Partial Pressure O2 43.6*L, Arterial Blood HCO3 46.0H, Arterial Blood Oxygen Saturation 77.7L, Arterial Blood Base Excess 17.7, Mike Test Positive 04/25/16 04:00: White Blood Count 3.9L, Red Blood Count 3.03L, Hemoglobin 8.4L, Hematocrit 28.1L , Mean Corpuscular Volume 93, Mean Corpuscular Hemoglobin 27.9, Mean Corpuscular Hemoglobin Concent 30.1L, Red Cell Distribution Width 16.7H, Platelet Count 222, Mean Platelet Volume 5.3L, Neutrophils (%) (Auto) 60.8, Lymphocytes (%) (Auto) 23.3, Monocytes (%) (Auto) 8.4, Eosinophils (%) (Auto) 6.1H, Basophils (%) (Auto) 1.5, Sodium Level 148H, Potassium Level 4.3, Chloride Level 97L, Carbon Dioxide Level 46*H, Anion Gap 5, Blood Urea Nitrogen 34H, Creatinine 1.6H, Estimat Glomerular Filtration Rate , Glucose Level 93, Calcium Level 9.1 Height (Feet): 5 Height (Inches): 8.00 Weight (Pounds): 350 General Appearance: no apparent distress Respiratory/Chest: decreased breath sounds Abdomen: soft Objective other PE not changed COURTNEY LOPEZ Apr 25, 2016 14:54
[2016-04-25 16:00] VITALS: BP 140/65
[2016-04-25 20:00] VITALS: BP 148/70
--- NOTE | 2016-04-25 21:54 | General Progress Note ---
Assessment/Plan Assessment/Plan Diagnosis 1. Acute hypoxemic and hypercapnic respiratory failure requiring intubation. 2. Acute kidney injury. 3. Morbid obesity. 4. Hypokalemia 5. Diabetes mellitus. 6. Congestive heart failure. 7. Chronic obstructive pulmonary disease exacerbation 8. Pulmonary hypertension. 9. severe edema/anasarca 10. Acute anemia 11. Acute diastolic heart failure 12. left lower extremity cellulitis 13. Pneumonia 14. s/p extubation on 04/14/16 now on BiPap 15. ?yeast vaginitis 16. pleural effsuion 17. enterococus UTI plan: -transfered out of ICU on 04/16/16 -continue present care -daily labs -Biapap per Dr. Rene -finished course of IV antibiotics, monitor off abx per Dr. Milan -nephrology input appreciated -cardiology input appreciated -type and cross match for one unit of PRBC -continue lasix 80 mg po bid, I's and O's -continue pt/ot out of bed to cardiac chair -change pichardo, urinalysis and urine culture -spot lasix 20 mg once -continue zyvox per ID, diflucan for vaginitis for 1 day, pyridium for dysuria will request social work consult for, patient does not want to go back to [facility] at this time discussed with Nurse FULL code dc planning to rehab vs LTAC replace pichardo Subjective Date patient seen: Apr 25, 2016 Time patient seen: 21:52 Allergies: Coded Allergies: AMOXICILLIN (Verified Allergy, Mild, RASH, 12/25/09) PENICILLINS (Unverified Allergy, Unknown, 04/06/16) All Systems: reviewed and negative except above Subjective tolerating oxygen during day and requiring Bipap at [facility] Objective Last 24 Hour Vital Signs Date Time Temp Pulse Resp B/P Pulse Ox O2 Delivery O2 Flow Rate FiO2 04/25/16 21:30 58 18 98 Facial 50 04/25/16 20:00 60 04/25/16 19:28 55 17 100 Facial 50 04/25/16 19:28 99 Bi-pap 50 04/25/16 19:28 Bi-pap 50 04/25/16 17:04 62 15 100 Facial 50 04/25/16 16:00 53 04/25/16 16:00 98.1 61 21 140/65 100 Bi-pap 50 04/25/16 15:25 57 15 100 Facial 50 04/25/16 13:29 62 128/74 04/25/16 13:18 56 18 100 Facial 50 04/25/16 12:00 50 04/25/16 12:00 50 04/25/16 12:00 97.2 62 24 128/74 100 Bi-pap 50 04/25/16 11:13 68 22 99 Facial 50 04/25/16 09:28 73 36 99 Full Face 50 04/25/16 09:00 55 04/25/16 08:00 50 04/25/16 08:00 97.2 61 17 136/92 100 Bi-pap 50 04/25/16 08:00 57 04/25/16 07:21 71 25 98 Facial 50 04/25/16 07:20 99 Bi-pap 50 04/25/16 07:20 Bi-pap 50 04/25/16 05:57 62 131/71 04/25/16 04:33 62 26 99 Facial 50 04/25/16 04:29 62 26 99 Facial 50 04/25/16 04:00 62 04/25/16 04:00 50 04/25/16 04:00 97.5 62 18 131/71 99 Bi-pap 50 04/25/16 03:04 69 22 96 Facial 50 04/25/16 00:57 65 20 98 Facial 50 04/25/16 00:00 97.5 56 19 115/67 100 Bi-pap 50 04/25/16 00:00 55 04/24/16 22:59 68 20 98 Facial 50 04/24/16 22:00 56 132/62 Intake and Output 04/24/16 04/25/16 19:00 07:00 Intake Total 560 ml Output Total 800 ml Balance -240 ml Intake Oral 560 ml Output Urine Total 800 ml # Voids 1 1 # Bowel Movements 1 Laboratory Tests 04/25/16 01:00: Arterial Blood pH 7.365, Arterial Blood Partial Pressure CO2 82.4*H, Arterial Blood Partial Pressure O2 43.6*L, Arterial Blood HCO3 46.0H, Arterial Blood Oxygen Saturation 77.7L, Arterial Blood Base Excess 17.7, Mike Test Positive 04/25/16 04:00: White Blood Count 3.9L, Red Blood Count 3.03L, Hemoglobin 8.4L, Hematocrit 28.1L , Mean Corpuscular Volume 93, Mean Corpuscular Hemoglobin 27.9, Mean Corpuscular Hemoglobin Concent 30.1L, Red Cell Distribution Width 16.7H, Platelet Count 222, Mean Platelet Volume 5.3L, Neutrophils (%) (Auto) 60.8, Lymphocytes (%) (Auto) 23.3, Monocytes (%) (Auto) 8.4, Eosinophils (%) (Auto) 6.1H, Basophils (%) (Auto) 1.5, Sodium Level 148H, Potassium Level 4.3, Chloride Level 97L, Carbon Dioxide Level 46*H, Anion Gap 5, Blood Urea Nitrogen 34H, Creatinine 1.6H, Estimat Glomerular Filtration Rate , Glucose Level 93, Calcium Level 9.1 Height (Feet): 5 Height (Inches): 8.00 Weight (Pounds): 350 General Appearance: WD/WN EENT: PERRL/EOMI Neck: non-tender Cardiovascular: normal peripheral pulses, normal rate Respiratory/Chest: lungs clear Abdomen: normal bowel sounds, non tender, soft Pelvis: normal external exam Extremities: swelling Edema: no edema noted Arm (L), no edema noted Arm (R), 2+ Leg (L), 2+ Leg (R), 2+ Pedal (L), 2+ Pedal (R), 2+ Generalized Edema: moderate edema 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
[2016-04-26] VITALS: BP 135/66
[2016-04-26 04:00] VITALS: BP 134/64
[2016-04-26 06:30] LABS: BASOPHILS % (AUTO) 1.5 % (0.0-2.0); EOSINOPHILS % (AUTO) 4.9 % (0.0-3.0); MEAN CORPUSCULAR HEMOGLOBIN 27.3 PG (27.0-31.0); MEAN CORPUSCULAR HGB CONC 29.4 G/DL (32.0-36.0); MEAN CORPUSCULAR VOLUME 93 FL (80-99); MEAN PLATELET VOLUME 5.7 FL (6.5-10.1); MONOCYTES % (AUTO) 9.4 % (1.0-10.0); NEUTROPHILS % (AUTO) 61.2 % (45.0-75.0); PLATELET COUNT 210 K/UL (150-450); RED BLOOD COUNT 3.03 M/UL (4.20-5.40); RED CELL DISTRIBUTION WIDTH 16.8 % (11.6-14.8); WHITE BLOOD COUNT 3.8 K/UL (4.8-10.8)
[2016-04-26] MEDS: NovoLOG Insulin Flexpen SUBQ SCH ×4 (06:30→21:18)
[2016-04-26 06:40] LABS: ABG ALLEN TEST POSITIVE; ABG BASE EXCESS 23.7; ABG PCO2 82.2 mmHg (35.0-45.0)
[2016-04-26 06:47] LABS: CALCIUM 9.4 mg/dL (8.6-10.2); CHLORIDE 94 mEQ/L (98-107); CREATININE 1.6 mg/dL (0.5-0.9); HEMOLYSIS 2; POTASSIUM 4.7 mEQ/L (3.4-4.9); SODIUM 147 mEQ/L (135-145)
[2016-04-26 06:53] LABS: ANION GAP 7 (5-15)
[2016-04-26 07:22] LABS: CARBON DIOXIDE 46 mEQ/L (20-30)
[2016-04-26 08:00] VITALS: BP 134/82
--- NOTE | 2016-04-26 08:40 | Infectious Diseases Prog Note ---
Assessment/Plan Assessment/Plan ASSESSMENT: The patient is a 75-year-old female with Leukocytosis SP Sepsis SP Pneumonia SCX: NL Fl SP Rx CXR 04/23: persistent left basilar opacity, likely pleural fluid and consolidation, unchanged. Mild interstitial prominence persists, unchanged. LLExt Cellulitis SP Rx probable UTI / Dysuria SP Rx UCx : VRE.faecium VDRF SP - on/off BiPAP Obesity CHF COPD DM PCN allergy DNI PLAN: monitor pt off of ABX ( SP fluconazole ) ( 04/23 SP Zyvox d# 7 / ) Monitor CBC, temperatures, re-culture if acute change Monitor BMP. Monitor renal function. Monitor CBC. Monitor chest x-ray. BiPAP prn Subjective Allergies: Coded Allergies: AMOXICILLIN (Verified Allergy, Mild, RASH, 12/25/09) PENICILLINS (Unverified Allergy, Unknown, 04/06/16) Subjective remains afebrile. on/off BiPAP Objective Vital Signs Last 24 Hour Vital Signs Date Time Temp Pulse Resp B/P Pulse Ox O2 Delivery O2 Flow Rate FiO2 04/26/16 06:55 65 20 96 Facial 40 04/26/16 06:28 65 134/64 04/26/16 05:22 64 18 96 Facial 40 04/26/16 05:10 54 04/26/16 04:00 40 04/26/16 04:00 97.7 60 16 134/64 100 Bi-pap 40 04/26/16 03:00 69 18 99 Facial 40 04/26/16 01:00 55 18 100 Facial 50 04/26/16 00:00 52 04/26/16 00:00 97.5 57 16 135/66 99 Bi-pap 50 04/26/16 00:00 50 04/25/16 23:19 54 18 100 Facial 50 04/25/16 22:06 58 140/65 04/25/16 21:30 58 18 98 Facial 50 04/25/16 20:00 97.9 64 16 148/70 100 Bi-pap 50 04/25/16 20:00 60 04/25/16 19:28 55 17 100 Facial 50 04/25/16 19:28 99 Bi-pap 50 04/25/16 19:28 Bi-pap 50 04/25/16 17:04 62 15 100 Facial 50 04/25/16 16:00 53 04/25/16 16:00 98.1 61 21 140/65 100 Bi-pap 50 04/25/16 15:25 57 15 100 Facial 50 04/25/16 13:29 62 128/74 04/25/16 13:18 56 18 100 Facial 50 04/25/16 12:00 50 04/25/16 12:00 50 04/25/16 12:00 97.2 62 24 128/74 100 Bi-pap 50 04/25/16 11:13 68 22 99 Facial 50 04/25/16 09:28 73 36 99 Full Face 50 04/25/16 09:00 55 Height (Feet): 5 Height (Inches): 8.00 Weight (Pounds): 350 General Appearance: no acute distress Respiratory/Chest: decreased breath sounds Cardiovascular: normal rate, regular rhythm Abdomen: normal bowel sounds, soft, non tender, non distended Laboratory Tests Test 04/26/16 04:30 04/26/16 06:30 White Blood Count 3.8 K/UL (4.8-10.8) L Red Blood Count 3.03 M/UL (4.20-5.40) L Hemoglobin 8.3 G/DL (12.0-16.0) L Hematocrit 28.2 % (37.0-47.0) L Mean Corpuscular Volume 93 FL (80-99) Mean Corpuscular Hemoglobin 27.3 PG (27.0-31.0) Mean Corpuscular Hemoglobin Concent 29.4 G/DL (32.0-36.0) L Red Cell Distribution Width 16.8 % (11.6-14.8) H Platelet Count 210 K/UL (150-450) Mean Platelet Volume 5.7 FL (6.5-10.1) L Neutrophils (%) (Auto) 61.2 % (45.0-75.0) Lymphocytes (%) (Auto) 23.0 % (20.0-45.0) Monocytes (%) (Auto) 9.4 % (1.0-10.0) Eosinophils (%) (Auto) 4.9 % (0.0-3.0) H Basophils (%) (Auto) 1.5 % (0.0-2.0) Sodium Level 147 mEQ/L (135-145) H Potassium Level 4.7 mEQ/L (3.4-4.9) Chloride Level 94 mEQ/L (98-107) L Carbon Dioxide Level 46 mEQ/L (20-30) *H Anion Gap 7 (5-15) Blood Urea Nitrogen 30 mg/dL (7-23) H Creatinine 1.6 mg/dL (0.5-0.9) H Estimat Glomerular Filtration Rate mL/min (>60) Glucose Level 126 mg/dL (74-106) H Calcium Level 9.4 mg/dL (8.6-10.2) Arterial Blood pH 7.410 (7.350-7.450) Arterial Blood Partial Pressure CO2 82.2 mmHg (35.0-45.0) *H Arterial Blood Partial Pressure O2 83.2 mmHg (75.0-100.0) Arterial Blood HCO3 51.8 mmol/L (22.0-26.0) H Arterial Blood Oxygen Saturation 96.3 % (92.0-98.0) Arterial Blood Base Excess 23.7 Mike Test Positive Current Medications Medications (Trade) Dose Ordered Sig/Kalyn Route PRN Reason Start Time Stop Time Status Last Admin Dose Admin Acetaminophen (Tylenol) 650 mg Q4H PRN NG Fever/Headache/Mild Pain 04/16/16 13:00 05/16/16 12:59 04/25/16 17:24 Albuterol/ Ipratropium (DuoNeb 0.5-3(2.5)mg/3ml) 3 ml Q4HR PRN HHN Shortness of Breath/Congestion 04/21/16 17:30 04/26/16 17:29 Artificial Tears (Akwa-Tears) 2 drop Q2H PRN BOTH EYES Dry Eyes 04/16/16 13:00 05/16/16 12:59 Calcium Carbonate (Calcium Carbonate) 1,300 mg THREE TIMES A DAY ORAL 04/18/16 16:44 05/16/16 12:59 04/25/16 17:24 Dextrose (Dextrose 50%) STAT PRN IV Hypoglycemia 04/16/16 13:00 05/16/16 12:59 Digoxin (Lanoxin) 0.125 mg DAILY ORAL 04/18/16 16:44 05/17/16 08:59 04/24/16 11:00 Diltiazem HCl (Cardizem) 30 mg EVERY 8 HOURS ORAL 04/18/16 16:44 05/16/16 13:59 04/26/16 06:28 Furosemide (Lasix) 80 mg EVERY 12 HOURS ORAL 04/16/16 21:00 05/16/16 20:59 04/25/16 20:40 Heparin Sodium (Porcine) (Heparin 5000 units/ml) 5,000 units EVERY 12 HOURS SUBQ 04/16/16 21:00 05/16/16 20:59 04/25/16 20:41 Insulin Aspart (NovoLOG) AC+HS SUBQ 04/18/16 22:30 05/18/16 22:29 04/26/16 06:30 Nystatin (Nystop Powder) 1 applic THREE TIMES A DAY TOPIC 04/16/16 13:00 05/16/16 12:59 04/25/16 17:34 Ondansetron HCl (Zofran) 4 mg Q6H PRN IVP Nausea & Vomiting 04/16/16 13:00 05/16/16 12:59 04/25/16 14:01 Pantoprazole (Protonix) 40 mg DAILY IV 04/17/16 09:00 05/17/16 08:59 04/25/16 09:17 Polyethylene Glycol (Miralax) 17 gm DAILYPRN PRN ORAL Constipation 04/18/16 16:45 05/16/16 12:59 04/20/16 21:36 Vitamin D (Vitamin D) 5,000 intlu DAILY ORAL 04/18/16 16:45 05/17/16 08:59 04/25/16 09:18 YARELIS ROBLES 20, 2017 08:40
[2016-04-26] MEDS: Digoxin Elixir 0.125mg ORAL SCH (09:00)
[2016-04-26] MEDS: Vitamin D 1000 IU Tab ORAL SCH (09:33)
[2016-04-26] MEDS: Calcium Carbonate 650mg Tab ORAL SCH ×3 (09:33→17:52)
[2016-04-26] MEDS: Furosemide 80mg tab ORAL SCH ×2 (09:34→21:18)
[2016-04-26] MEDS: Pantoprazole Inj IV SCH (09:34)
[2016-04-26] MEDS: Nystatin Powder 100,000 units/gm 15gm TOPIC SCH ×3 (09:35→17:52)
[2016-04-26] MEDS: Heparin 5000 units/ml inj SUBQ SCH ×2 (09:35→21:17)
[2016-04-26 12:00] VITALS: BP 125/60
--- NOTE | 2016-04-26 12:56 | Wound Care Consultation ---
Wound Assessment Wound Assessment #1: Wound Number: #1 Wound Present on Admission: Yes New Wound: No Status Change of Wound: No Wound Location Body Site Modif: left, lower, lateral Wound Location Body Site: leg Wound Type: scab - dry scab Joya Test: Does not Joya Wound Thickness: Partial Thickness Wound Length: 0.8 Wound Width: 0.8 Percent of Wound Black/Brown: 100 - dry scab intact Wound Drainage Amount: None Wound Drainage Odor: None/Absent Tissue Surrounding Wound: Intact Wound General Appearance: Clean/Dry Wound Assessment #2: Wound Number: #2 Wound Present on Admission: Yes New Wound: No Status Change of Wound: No Wound Location Body Site Modif: left Wound Location Body Site: breast fold Wound Type: other - intertrigo Joya Test: Does not Joya Wound Length: 0.5 Wound Width: 2.0 Percent of Wound [place]/Red: 100 Wound Drainage Amount: None Wound Drainage Odor: None/Absent Tissue Surrounding Wound: Intact Wound General Appearance: Open to air, Clean/Dry Wound Comment #1 Left lower lateral leg skin tear- upon reassessment noted left leg skin tear with good progress, noted scab intact, dry #2 Left breast fold intertrigo rash- noted good progress to site , decrease in redness noted. upon reassessment noted good progress to affected sites, current treatment remains effective. no further deterioration noted. asked patient if i could do a complete body assessment stated." i don't have anything on my bottom". KITA ORTIZ Apr 26, 2016 12:56
--- NOTE | 2016-04-26 13:08 | General Progress Note ---
Assessment/Plan Status: stable - from renal stand point Assessment/Plan status: Acute renal failure- Cr lower Acute Respiratory Failure, now extubated Anemia Morbid Obesity CHF ? Sepsis Plan: post extubation care K supplement as needed- Calcium supplements with Vit D on board- Optimize cardiac and pulmonary status- Avoid Nephrotoxics- monitor renal parameters Urine studies- Keep BP over 100 syst Antibiotics Subjective ROS Limited/Unobtainable: No Constitutional: Reports: malaise, weakness Allergies: Coded Allergies: AMOXICILLIN (Verified Allergy, Mild, RASH, 12/25/09) PENICILLINS (Unverified Allergy, Unknown, 04/06/16) Objective Last 24 Hour Vital Signs Date Time Temp Pulse Resp B/P Pulse Ox O2 Delivery O2 Flow Rate FiO2 04/26/16 12:11 61 20 97 Facial 40 04/26/16 10:16 60 20 97 Facial 40 04/26/16 09:00 58 04/26/16 08:00 40 04/26/16 08:00 97.2 68 20 134/82 96 Bi-pap 40 04/26/16 08:00 61 04/26/16 06:55 65 20 96 Facial 40 04/26/16 06:28 65 134/64 04/26/16 05:22 64 18 96 Facial 40 04/26/16 05:10 54 04/26/16 04:00 40 04/26/16 04:00 97.7 60 16 134/64 100 Bi-pap 40 04/26/16 03:00 69 18 99 Facial 40 04/26/16 01:00 55 18 100 Facial 50 04/26/16 00:00 52 04/26/16 00:00 97.5 57 16 135/66 99 Bi-pap 50 04/26/16 00:00 50 04/25/16 23:19 54 18 100 Facial 50 04/25/16 22:06 58 140/65 04/25/16 21:30 58 18 98 Facial 50 04/25/16 20:00 97.9 64 16 148/70 100 Bi-pap 50 04/25/16 20:00 60 04/25/16 19:28 55 17 100 Facial 50 04/25/16 19:28 99 Bi-pap 50 04/25/16 19:28 Bi-pap 50 04/25/16 17:04 62 15 100 Facial 50 04/25/16 16:00 53 04/25/16 16:00 98.1 61 21 140/65 100 Bi-pap 50 04/25/16 15:25 57 15 100 Facial 50 04/25/16 13:29 62 128/74 04/25/16 13:18 56 18 100 Facial 50 Intake and Output 04/25/16 04/26/16 19:00 07:00 Intake Total 660 ml 520 ml Output Total 550 ml 575 ml Balance 110 ml -55 ml Intake Oral 660 ml 520 ml Output Urine Total 550 ml 575 ml Laboratory Tests 04/26/16 04:30: White Blood Count 3.8L, Red Blood Count 3.03L, Hemoglobin 8.3L, Hematocrit 28.2L , Mean Corpuscular Volume 93, Mean Corpuscular Hemoglobin 27.3, Mean Corpuscular Hemoglobin Concent 29.4L, Red Cell Distribution Width 16.8H, Platelet Count 210, Mean Platelet Volume 5.7L, Neutrophils (%) (Auto) 61.2, Lymphocytes (%) (Auto) 23.0, Monocytes (%) (Auto) 9.4, Eosinophils (%) (Auto) 4.9H, Basophils (%) (Auto) 1.5, Sodium Level 147H, Potassium Level 4.7, Chloride Level 94L, Carbon Dioxide Level 46*H, Anion Gap 7, Blood Urea Nitrogen 30H, Creatinine 1.6H, Estimat Glomerular Filtration Rate , Glucose Level 126H, Calcium Level 9.4 04/26/16 06:30: Arterial Blood pH 7.410, Arterial Blood Partial Pressure CO2 82.2*H, Arterial Blood Partial Pressure O2 83.2, Arterial Blood HCO3 51.8H, Arterial Blood Oxygen Saturation 96.3, Arterial Blood Base Excess 23.7, Mike Test Positive Height (Feet): 5 Height (Inches): 8.00 Weight (Pounds): 350 General Appearance: no apparent distress, other - on BIPAP Cardiovascular: normal rate Respiratory/Chest: decreased breath sounds Abdomen: distended Edema: 1+ Arm (L), 1+ Arm (R), 1+ Leg (L), 1+ Leg (R), 1+ Pedal (L), 1+ Pedal ( R), 1+ Generalized Objective other PE not changed COURTNEY LOPEZ Apr 26, 2016 13:08
--- NOTE | 2016-04-26 13:56 | Diagnostic Imaging Report ---
Indication: SOB Technique: One view of the chest Comparison: 04/24/2016 Findings: Body habitus limits evaluation. Left arm PICC remains. The heart is enlarged. Equivocal mild interstitial congestive changes are again demonstrated. This appears similar to the previous study, allowing for differences in exposure technique Impression: Unchanged, over one day, findings as above.
--- NOTE | 2016-04-26 17:09 | Cardiac Electrophysiology PN ---
Assessment/Plan Assessment/Plan 1. Respiratory failure, due to chronic obstructive pulmonary disease and Diastolic dysfunction with BNP 7800. On BIPAP and Lasix 80 po bid. EF 55% to 60%. 2. Atrial fibrillation, rate controlled on Dig 0.125 and Cardizem 30 mg T.I.D. Off Coumadin for severe anemia. 3. HTN On Lasix and Cardizem. 4. Lower extremity cellulitis, on IV antibiotics 5. Morbid obesity. 6. CKD creatinine 1.6 7. DNI 8. Anemia, S/P Blood transfusion DW RN Subjective Subjective On BIPAP and lasix . In [place]. Atrial Fib rate controlled . RN at bedside. No events overnight. Objective Last 24 Hour Vital Signs Date Time Temp Pulse Resp B/P Pulse Ox O2 Delivery O2 Flow Rate FiO2 04/26/16 17:00 66 20 97 Facial 40 04/26/16 14:47 59 20 95 Facial 40 04/26/16 13:55 62 125/60 04/26/16 12:11 61 20 97 Facial 40 04/26/16 12:00 60 04/26/16 12:00 40 04/26/16 12:00 96.6 65 19 125/60 97 Bi-pap 40 04/26/16 10:16 60 20 97 Facial 40 04/26/16 09:00 58 04/26/16 08:00 40 04/26/16 08:00 97.2 68 20 134/82 96 Bi-pap 40 04/26/16 08:00 61 04/26/16 06:55 65 20 96 Facial 40 04/26/16 06:28 65 134/64 04/26/16 05:22 64 18 96 Facial 40 04/26/16 05:10 54 04/26/16 04:00 40 04/26/16 04:00 97.7 60 16 134/64 100 Bi-pap 40 04/26/16 03:00 69 18 99 Facial 40 04/26/16 01:00 55 18 100 Facial 50 04/26/16 00:00 52 04/26/16 00:00 97.5 57 16 135/66 99 Bi-pap 50 04/26/16 00:00 50 04/25/16 23:19 54 18 100 Facial 50 04/25/16 22:06 58 140/65 04/25/16 21:30 58 18 98 Facial 50 04/25/16 20:00 97.9 64 16 148/70 100 Bi-pap 50 04/25/16 20:00 60 04/25/16 19:28 55 17 100 Facial 50 04/25/16 19:28 99 Bi-pap 50 04/25/16 19:28 Bi-pap 50 Intake and Output 04/25/16 04/26/16 19:00 07:00 Intake Total 660 ml 520 ml Output Total 550 ml 575 ml Balance 110 ml -55 ml Intake Oral 660 ml 520 ml Output Urine Total 550 ml 575 ml Laboratory Tests Test 04/26/16 04:30 04/26/16 06:30 White Blood Count 3.8 K/UL (4.8-10.8) L Red Blood Count 3.03 M/UL (4.20-5.40) L Hemoglobin 8.3 G/DL (12.0-16.0) L Hematocrit 28.2 % (37.0-47.0) L Mean Corpuscular Volume 93 FL (80-99) Mean Corpuscular Hemoglobin 27.3 PG (27.0-31.0) Mean Corpuscular Hemoglobin Concent 29.4 G/DL (32.0-36.0) L Red Cell Distribution Width 16.8 % (11.6-14.8) H Platelet Count 210 K/UL (150-450) Mean Platelet Volume 5.7 FL (6.5-10.1) L Neutrophils (%) (Auto) 61.2 % (45.0-75.0) Lymphocytes (%) (Auto) 23.0 % (20.0-45.0) Monocytes (%) (Auto) 9.4 % (1.0-10.0) Eosinophils (%) (Auto) 4.9 % (0.0-3.0) H Basophils (%) (Auto) 1.5 % (0.0-2.0) Sodium Level 147 mEQ/L (135-145) H Potassium Level 4.7 mEQ/L (3.4-4.9) Chloride Level 94 mEQ/L (98-107) L Carbon Dioxide Level 46 mEQ/L (20-30) *H Anion Gap 7 (5-15) Blood Urea Nitrogen 30 mg/dL (7-23) H Creatinine 1.6 mg/dL (0.5-0.9) H Estimat Glomerular Filtration Rate mL/min (>60) Glucose Level 126 mg/dL (74-106) H Calcium Level 9.4 mg/dL (8.6-10.2) Arterial Blood pH 7.410 (7.350-7.450) Arterial Blood Partial Pressure CO2 82.2 mmHg (35.0-45.0) *H Arterial Blood Partial Pressure O2 83.2 mmHg (75.0-100.0) Arterial Blood HCO3 51.8 mmol/L (22.0-26.0) H Arterial Blood Oxygen Saturation 96.3 % (92.0-98.0) Arterial Blood Base Excess 23.7 Mike Test Positive Objective HEAD AND NECK: No JVD LUNGS: Coarse rhonchi CARDIOVASCULAR: Irregularly irregular S1 and S2 with no murmur. ABDOMEN: Morbidly obese. EXTREMITIES: 1+ pitting edema and leg cellulitis. JOHN NUÑEZ Apr 26, 2016 17:09
--- NOTE | 2016-04-26 19:55 | General Progress Note ---
Assessment/Plan Assessment/Plan Diagnosis 1. Acute hypoxemic and hypercapnic respiratory failure requiring intubation. 2. Acute kidney injury. 3. Morbid obesity. 4. Hypokalemia 5. Diabetes mellitus. 6. Congestive heart failure. 7. Chronic obstructive pulmonary disease exacerbation 8. Pulmonary hypertension. 9. severe edema/anasarca 10. Acute anemia 11. Acute diastolic heart failure 12. left lower extremity cellulitis 13. Pneumonia 14. s/p extubation on 04/14/16 now on BiPap 15. ?yeast vaginitis 16. pleural effsuion 17. enterococus UTI plan: -transfered out of ICU on 04/16/16 -continue present care -daily labs -Biapap per Dr. Rene -finished course of IV antibiotics, monitor off abx per Dr. Milan -nephrology input appreciated -cardiology input appreciated -type and cross match for one unit of PRBC -continue lasix 80 mg po bid, I's and O's -continue pt/ot out of bed to cardiac chair -change pichardo, urinalysis and urine culture -spot lasix 20 mg once -finished zyvox per ID, will request social work consult for, patient does not want to go back to [facility] at this time discussed with Nurse FULL code dc planning to [place] replace pichardo Subjective Date patient seen: Apr 26, 2016 Time patient seen: 19:53 ROS Limited/Unobtainable: Yes Allergies: Coded Allergies: AMOXICILLIN (Verified Allergy, Mild, RASH, 12/25/09) PENICILLINS (Unverified Allergy, Unknown, 04/06/16) Subjective tolerating oxygen during day and requiring Bipap at nigth Objective Last 24 Hour Vital Signs Date Time Temp Pulse Resp B/P Pulse Ox O2 Delivery O2 Flow Rate FiO2 04/26/16 19:28 71 21 96 Facial 40 04/26/16 17:00 66 20 97 Facial 40 04/26/16 14:47 59 20 95 Facial 40 04/26/16 13:55 62 125/60 04/26/16 12:11 61 20 97 Facial 40 04/26/16 12:00 60 04/26/16 12:00 40 04/26/16 12:00 96.6 65 19 125/60 97 Bi-pap 40 04/26/16 10:16 60 20 97 Facial 40 04/26/16 09:00 58 04/26/16 08:00 40 04/26/16 08:00 97.2 68 20 134/82 96 Bi-pap 40 04/26/16 08:00 61 04/26/16 06:55 65 20 96 Facial 40 04/26/16 06:28 65 134/64 04/26/16 05:22 64 18 96 Facial 40 04/26/16 05:10 54 04/26/16 04:00 40 04/26/16 04:00 97.7 60 16 134/64 100 Bi-pap 40 04/26/16 03:00 69 18 99 Facial 40 04/26/16 01:00 55 18 100 Facial 50 04/26/16 00:00 52 04/26/16 00:00 97.5 57 16 135/66 99 Bi-pap 50 04/26/16 00:00 50 04/25/16 23:19 54 18 100 Facial 50 04/25/16 22:06 58 140/65 04/25/16 21:30 58 18 98 Facial 50 04/25/16 20:00 97.9 64 16 148/70 100 Bi-pap 50 04/25/16 20:00 60 Intake and Output 04/25/16 04/26/16 19:00 07:00 Intake Total 660 ml 520 ml Output Total 550 ml 575 ml Balance 110 ml -55 ml Intake Oral 660 ml 520 ml Output Urine Total 550 ml 575 ml Laboratory Tests 04/26/16 04:30: White Blood Count 3.8L, Red Blood Count 3.03L, Hemoglobin 8.3L, Hematocrit 28.2L , Mean Corpuscular Volume 93, Mean Corpuscular Hemoglobin 27.3, Mean Corpuscular Hemoglobin Concent 29.4L, Red Cell Distribution Width 16.8H, Platelet Count 210, Mean Platelet Volume 5.7L, Neutrophils (%) (Auto) 61.2, Lymphocytes (%) (Auto) 23.0, Monocytes (%) (Auto) 9.4, Eosinophils (%) (Auto) 4.9H, Basophils (%) (Auto) 1.5, Sodium Level 147H, Potassium Level 4.7, Chloride Level 94L, Carbon Dioxide Level 46*H, Anion Gap 7, Blood Urea Nitrogen 30H, Creatinine 1.6H, Estimat Glomerular Filtration Rate , Glucose Level 126H, Calcium Level 9.4 04/26/16 06:30: Arterial Blood pH 7.410, Arterial Blood Partial Pressure CO2 82.2*H, Arterial Blood Partial Pressure O2 83.2, Arterial Blood HCO3 51.8H, Arterial Blood Oxygen Saturation 96.3, Arterial Blood Base Excess 23.7, Mike Test Positive Height (Feet): 5 Height (Inches): 8.00 Weight (Pounds): 350 General Appearance: WD/WN, morbidly obese EENT: PERRL/EOMI Neck: non-tender Cardiovascular: normal peripheral pulses Respiratory/Chest: chest wall non-tender, lungs clear Abdomen: non tender, no organomegaly Pelvis: normal external exam Extremities: normal capillary refill Edema: no edema noted Arm (L), no edema noted Arm (R), 2+ Leg (L), 2+ Leg (R), 2+ Pedal (L), 2+ Pedal (R), 1+ Generalized Edema: moderate edema 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
[2016-04-26 20:00] VITALS: BP 138/84
[2016-04-27] VITALS (7 sets, daily range): BP systolic 141–164; BP diastolic 65–85
[2016-04-27] MEDS ORDERED: Morphine Sulfate 4mg/ml Inj IVP PRN (00:45)
[2016-04-27] MEDS: NovoLOG Insulin Flexpen SUBQ SCH ×4 (06:05→20:31)
[2016-04-27 06:24] LABS: BASOPHILS % (AUTO) 1.2 % (0.0-2.0); LYMPHOCYTES % (AUTO) 27.4 % (20.0-45.0); MEAN CORPUSCULAR HEMOGLOBIN 27.6 PG (27.0-31.0); MEAN CORPUSCULAR HGB CONC 29.9 G/DL (32.0-36.0); MEAN CORPUSCULAR VOLUME 92 FL (80-99); MEAN PLATELET VOLUME 5.4 FL (6.5-10.1); MONOCYTES % (AUTO) 9.9 % (1.0-10.0); NEUTROPHILS % (AUTO) 56.5 % (45.0-75.0); PLATELET COUNT 196 K/UL (150-450); RED BLOOD COUNT 3.22 M/UL (4.20-5.40); RED CELL DISTRIBUTION WIDTH 16.6 % (11.6-14.8)
[2016-04-27 07:17] LABS: ALANINE AMINOTRANSFERASE 5 U/L (3-33); ALBUMIN/GLOBULIN RATIO 0.9 (1.0-2.7); ASPARTATE AMINO TRANSFERASE 13 U/L (5-40); CALCIUM 9.8 mg/dL (8.6-10.2); CHLORIDE 94 mEQ/L (98-107); CREATININE 1.8 mg/dL (0.5-0.9); HEMOLYSIS 2; POTASSIUM 4.5 mEQ/L (3.4-4.9); SODIUM 146 mEQ/L (135-145); TOTAL PROTEIN 7.6 g/dL (6.6-8.7)
[2016-04-27 07:26] LABS: ANION GAP 5 (5-15)
[2016-04-27 07:55] LABS: CARBON DIOXIDE 47 mEQ/L (20-30)
[2016-04-27] MEDS: Furosemide 80mg tab ORAL SCH ×2 (08:54→20:24)
[2016-04-27] MEDS: Calcium Carbonate 650mg Tab ORAL SCH ×3 (08:54→17:45)
[2016-04-27] MEDS: Pantoprazole Inj IV SCH (08:54)
[2016-04-27] MEDS: Digoxin Elixir 0.125mg ORAL SCH (08:55)
[2016-04-27] MEDS: Nystatin Powder 100,000 units/gm 15gm TOPIC SCH ×3 (08:55→17:45)
[2016-04-27] MEDS: Vitamin D 1000 IU Tab ORAL SCH (08:57)
[2016-04-27] MEDS: Heparin 5000 units/ml inj SUBQ SCH ×2 (08:59→20:25)
--- NOTE | 2016-04-27 09:27 | Infectious Diseases Prog Note ---
Assessment/Plan Assessment/Plan ASSESSMENT: The patient is a 75-year-old female with Leukocytosis SP Sepsis SP Pneumonia SCX: NL Fl SP Rx CXR 04/26: Equivocal mild interstitial congestive changes are again demonstrated. This appears similar to the previous study LLExt Cellulitis SP Rx probable UTI / Dysuria SP Rx UCx : VRE.faecium VDRF SP - on/off BiPAP Obesity CHF COPD DM PCN allergy DNI PLAN: monitor pt off of ABX ( SP fluconazole ) ( 04/23 SP Zyvox d# 7 / ) Monitor CBC, temperatures, re-culture if acute change Monitor BMP. Monitor renal function. Monitor CBC. Monitor chest x-ray. BiPAP prn Subjective Allergies: Coded Allergies: AMOXICILLIN (Verified Allergy, Mild, RASH, 12/25/09) PENICILLINS (Unverified Allergy, Unknown, 04/06/16) Subjective remains afebrile. on/off BiPAP Objective Vital Signs Last 24 Hour Vital Signs Date Time Temp Pulse Resp B/P Pulse Ox O2 Delivery O2 Flow Rate FiO2 04/27/16 08:55 63 04/27/16 06:38 60 20 100 Facial 40 04/27/16 05:57 58 152/75 04/27/16 05:39 68 17 100 Facial 40 04/27/16 04:00 81 04/27/16 04:00 97.7 65 16 152/75 99 Bi-pap 40 04/27/16 03:30 56 18 100 Facial 40 04/27/16 01:19 57 22 98 Facial 40 04/27/16 01:17 97.5 04/27/16 00:00 97.4 58 16 141/70 99 Bi-pap 40 04/27/16 00:00 65 04/26/16 23:36 62 24 98 Facial 40 04/26/16 23:35 58 18 99 Facial 40 04/26/16 21:16 80 138/84 04/26/16 21:07 59 21 99 Facial 40 04/26/16 20:00 97.5 60 16 138/84 98 Nasal Cannula 04/26/16 20:00 59 04/26/16 19:28 71 21 96 Facial 40 04/26/16 17:00 66 20 97 Facial 40 04/26/16 16:00 52 04/26/16 14:47 59 20 95 Facial 40 3/20/17 13:55 62 125/60 04/26/16 12:11 61 20 97 Facial 40 04/26/16 12:00 60 04/26/16 12:00 40 04/26/16 12:00 96.6 65 19 125/60 97 Bi-pap 40 04/26/16 10:16 60 20 97 Facial 40 Height (Feet): 5 Height (Inches): 8.00 Weight (Pounds): 350 General Appearance: no acute distress Respiratory/Chest: decreased breath sounds Cardiovascular: normal rate, regular rhythm Abdomen: normal bowel sounds, soft, non tender, non distended Laboratory Tests Test 04/27/16 04:00 White Blood Count 4.0 K/UL (4.8-10.8) L Red Blood Count 3.22 M/UL (4.20-5.40) L Hemoglobin 8.9 G/DL (12.0-16.0) L Hematocrit 29.7 % (37.0-47.0) L Mean Corpuscular Volume 92 FL (80-99) Mean Corpuscular Hemoglobin 27.6 PG (27.0-31.0) Mean Corpuscular Hemoglobin Concent 29.9 G/DL (32.0-36.0) L Red Cell Distribution Width 16.6 % (11.6-14.8) H Platelet Count 196 K/UL (150-450) Mean Platelet Volume 5.4 FL (6.5-10.1) L Neutrophils (%) (Auto) 56.5 % (45.0-75.0) Lymphocytes (%) (Auto) 27.4 % (20.0-45.0) Monocytes (%) (Auto) 9.9 % (1.0-10.0) Eosinophils (%) (Auto) 5.0 % (0.0-3.0) H Basophils (%) (Auto) 1.2 % (0.0-2.0) Sodium Level 146 mEQ/L (135-145) H Potassium Level 4.5 mEQ/L (3.4-4.9) Chloride Level 94 mEQ/L (98-107) L Carbon Dioxide Level 47 mEQ/L (20-30) *H Anion Gap 5 (5-15) Blood Urea Nitrogen 29 mg/dL (7-23) H Creatinine 1.8 mg/dL (0.5-0.9) H Estimat Glomerular Filtration Rate mL/min (>60) Glucose Level 111 mg/dL (74-106) H Calcium Level 9.8 mg/dL (8.6-10.2) Total Bilirubin 0.4 mg/dL (0.0-1.2) Aspartate Amino Transf (AST/SGOT) 13 U/L (5-40) Alanine Aminotransferase (ALT/SGPT) 5 U/L (3-33) Alkaline Phosphatase 67 U/L (35-104) Pro-B-Type Natriuretic Peptide 5178 pg/mL (0-125) H Total Protein 7.6 g/dL (6.6-8.7) Albumin 3.6 g/dL (3.5-5.2) Globulin 4.0 g/dL Albumin/Globulin Ratio 0.9 (1.0-2.7) L Current Medications Medications (Trade) Dose Ordered Sig/Kalyn Route PRN Reason Start Time Stop Time Status Last Admin Dose Admin Acetaminophen (Tylenol) 650 mg Q4H PRN NG Fever/Headache/Mild Pain 04/16/16 13:00 05/16/16 12:59 04/25/16 17:24 Artificial Tears (Akwa-Tears) 2 drop Q2H PRN BOTH EYES Dry Eyes 04/16/16 13:00 05/16/16 12:59 Calcium Carbonate (Calcium Carbonate) 1,300 mg THREE TIMES A DAY ORAL 04/18/16 16:44 05/16/16 12:59 04/27/16 08:54 Dextrose (Dextrose 50%) STAT PRN IV Hypoglycemia 04/16/16 13:00 05/16/16 12:59 Digoxin (Lanoxin) 0.125 mg DAILY ORAL 04/18/16 16:44 05/17/16 08:59 04/27/16 08:55 Diltiazem HCl (Cardizem) 30 mg EVERY 8 HOURS ORAL 04/18/16 16:44 05/16/16 13:59 04/26/16 21:16 Furosemide (Lasix) 80 mg EVERY 12 HOURS ORAL 04/16/16 21:00 05/16/16 20:59 04/27/16 08:54 Heparin Sodium (Porcine) (Heparin 5000 units/ml) 5,000 units EVERY 12 HOURS SUBQ 04/16/16 21:00 05/16/16 20:59 04/27/16 08:59 Insulin Aspart (NovoLOG) AC+HS SUBQ 04/18/16 22:30 05/18/16 22:29 04/27/16 06:05 Morphine Sulfate (Morphine Sulfate) 4 mg Q4H PRN IVP For Pain 04/27/16 00:45 05/04/16 00:44 04/27/16 00:47 Nystatin (Nystop Powder) 1 applic THREE TIMES A DAY TOPIC 04/16/16 13:00 05/16/16 12:59 04/27/16 08:55 Ondansetron HCl (Zofran) 4 mg Q6H PRN IVP Nausea & Vomiting 04/16/16 13:00 05/16/16 12:59 04/27/16 00:13 Pantoprazole (Protonix) 40 mg DAILY IV 04/17/16 09:00 05/17/16 08:59 04/27/16 08:54 Polyethylene Glycol (Miralax) 17 gm DAILYPRN PRN ORAL Constipation 04/18/16 16:45 05/16/16 12:59 04/20/16 21:36 Vitamin D (Vitamin D) 5,000 intlu DAILY ORAL 04/18/16 16:45 05/17/16 08:59 04/27/16 08:57 YARELIS ROBLES 21, 2017 09:27
--- NOTE | 2016-04-27 12:56 | Pulmonology Progress Note ---
Assessment/Plan Problems: (1) Acute respiratory failure with hypoxia and hypercarbia (2) Pneumonia (3) COPD exacerbation (4) Atrial fibrillation with RVR (5) Morbid obesity Assessment/Plan still diuresing but less cxr not changed respiratory treatment IV lasix bun/creatinine stable f/u intake and output continue antibiotics titrate fio2 to sat of 92% repeat BNP in am will continue diuresis as long as bun/creatinine are stable. Subjective Interval Events: late note for on and off bipap Allergies: Coded Allergies: AMOXICILLIN (Verified Allergy, Mild, RASH, 12/25/09) PENICILLINS (Unverified Allergy, Unknown, 04/06/16) Objective Last 24 Hour Vital Signs Date Time Temp Pulse Resp B/P Pulse Ox O2 Delivery O2 Flow Rate FiO2 04/27/16 12:00 97.2 63 16 147/70 97 Bi-pap 40 04/27/16 10:34 63 19 97 Facial 40 04/27/16 09:10 59 20 95 Facial 40 04/27/16 08:55 63 04/27/16 08:00 96.7 68 16 158/85 99 Bi-pap 40 04/27/16 08:00 58 04/27/16 06:38 60 20 100 Facial 40 04/27/16 05:57 58 152/75 04/27/16 05:39 68 17 100 Facial 40 04/27/16 04:00 81 04/27/16 04:00 97.7 65 16 152/75 99 Bi-pap 40 04/27/16 03:30 56 18 100 Facial 40 04/27/16 01:19 57 22 98 Facial 40 04/27/16 01:17 97.5 04/27/16 00:00 97.4 58 16 141/70 99 Bi-pap 40 04/27/16 00:00 65 04/26/16 23:36 62 24 98 Facial 40 04/26/16 23:35 58 18 99 Facial 40 04/26/16 21:16 80 138/84 04/26/16 21:07 59 21 99 Facial 40 04/26/16 20:00 97.5 60 16 138/84 98 Nasal Cannula 04/26/16 20:00 59 04/26/16 19:28 71 21 96 Facial 40 04/26/16 17:00 66 20 97 Facial 40 3/20/17 16:00 52 04/26/16 14:47 59 20 95 Facial 40 04/26/16 13:55 62 125/60 Intake and Output 04/26/16 04/27/16 19:00 07:00 Intake Total 1000 ml 100 ml Output Total 300 ml 500 ml Balance 700 ml -400 ml Intake Oral 1000 ml 100 ml Output Urine Total 300 ml 500 ml # Bowel Movements 1 1 Objective General Appearance: WD/WN, dyspnic HEENT: normocephalic, anicteric Respiratory/Chest: chest wall non-tender, decreased breath sounds Cardiovascular: normal peripheral pulses, normal rate Abdomen: normal bowel sounds, soft, non tender Genitourinary: normal external genitalia Extremities: no cyanosis Skin: no rash 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 Lymphatic: no neck adenopathy Laboratory Tests 04/27/16 04:00: White Blood Count 4.0L, Red Blood Count 3.22L, Hemoglobin 8.9L, Hematocrit 29.7L , Mean Corpuscular Volume 92, Mean Corpuscular Hemoglobin 27.6, Mean Corpuscular Hemoglobin Concent 29.9L, Red Cell Distribution Width 16.6H, Platelet Count 196, Mean Platelet Volume 5.4L, Neutrophils (%) (Auto) 56.5, Lymphocytes (%) (Auto) 27.4, Monocytes (%) (Auto) 9.9, Eosinophils (%) (Auto) 5.0H, Basophils (%) (Auto) 1.2, Sodium Level 146H, Potassium Level 4.5, Chloride Level 94L, Carbon Dioxide Level 47*H, Anion Gap 5, Blood Urea Nitrogen 29H, Creatinine 1.8H, Estimat Glomerular Filtration Rate , Glucose Level 111H, Calcium Level 9.8, Total Bilirubin 0.4, Aspartate Amino Transf (AST/SGOT) 13, Alanine Aminotransferase (ALT/SGPT) 5, Alkaline Phosphatase 67, Pro-B-Type Natriuretic Peptide 5178H, Total Protein 7.6, Albumin 3.6, Globulin 4.0, Albumin /Globulin Ratio 0.9L Current Medications Medications (Trade) Dose Ordered Sig/Kalyn Route PRN Reason Start Time Stop Time Status Last Admin Dose Admin Acetaminophen (Tylenol) 650 mg Q4H PRN NG Fever/Headache/Mild Pain 04/16/16 13:00 05/16/16 12:59 04/25/16 17:24 Artificial Tears (Akwa-Tears) 2 drop Q2H PRN BOTH EYES Dry Eyes 04/16/16 13:00 05/16/16 12:59 Calcium Carbonate (Calcium Carbonate) 1,300 mg THREE TIMES A DAY ORAL 04/18/16 16:44 05/16/16 12:59 04/27/16 08:54 Dextrose (Dextrose 50%) STAT PRN IV Hypoglycemia 04/16/16 13:00 05/16/16 12:59 Digoxin (Lanoxin) 0.125 mg DAILY ORAL 04/18/16 16:44 05/17/16 08:59 04/27/16 08:55 Diltiazem HCl (Cardizem) 30 mg EVERY 8 HOURS ORAL 04/18/16 16:44 05/16/16 13:59 04/26/16 21:16 Furosemide (Lasix) 80 mg EVERY 12 HOURS ORAL 04/16/16 21:00 05/16/16 20:59 04/27/16 08:54 Heparin Sodium (Porcine) (Heparin 5000 units/ml) 5,000 units EVERY 12 HOURS SUBQ 04/16/16 21:00 05/16/16 20:59 04/27/16 08:59 Insulin Aspart (NovoLOG) AC+HS SUBQ 04/18/16 22:30 05/18/16 22:29 04/27/16 12:23 Morphine Sulfate (Morphine Sulfate) 4 mg Q4H PRN IVP For Pain 04/27/16 00:45 05/04/16 00:44 04/27/16 00:47 Nystatin (Nystop Powder) 1 applic THREE TIMES A DAY TOPIC 04/16/16 13:00 05/16/16 12:59 04/27/16 08:55 Ondansetron HCl (Zofran) 4 mg Q6H PRN IVP Nausea & Vomiting 04/16/16 13:00 05/16/16 12:59 04/27/16 00:13 Pantoprazole (Protonix) 40 mg DAILY IV 04/17/16 09:00 05/17/16 08:59 04/27/16 08:54 Polyethylene Glycol (Miralax) 17 gm DAILYPRN PRN ORAL Constipation 04/18/16 16:45 05/16/16 12:59 04/20/16 21:36 Vitamin D (Vitamin D) 5,000 intlu DAILY ORAL 04/18/16 16:45 05/17/16 08:59 04/27/16 08:57 ARASH MIRANDA Apr 27, 2016 12:56
--- NOTE | 2016-04-27 12:58 | Pulmonology Progress Note ---
Assessment/Plan Problems: (1) Acute respiratory failure with hypoxia and hypercarbia (2) Pneumonia (3) COPD exacerbation (4) Atrial fibrillation with RVR (5) Morbid obesity Assessment/Plan still diuresing but less add Zaroxyline respiratory treatment IV lasix bun/creatinine stable f/u intake and output continue antibiotics titrate fio2 to sat of 92% Subjective Interval Events: still on bipap Allergies: Coded Allergies: AMOXICILLIN (Verified Allergy, Mild, RASH, 12/25/09) PENICILLINS (Unverified Allergy, Unknown, 04/06/16) Objective Last 24 Hour Vital Signs Date Time Temp Pulse Resp B/P Pulse Ox O2 Delivery O2 Flow Rate FiO2 04/27/16 12:00 97.2 63 16 147/70 97 Bi-pap 40 04/27/16 10:34 63 19 97 Facial 40 04/27/16 09:10 59 20 95 Facial 40 04/27/16 08:55 63 04/27/16 08:00 96.7 68 16 158/85 99 Bi-pap 40 04/27/16 08:00 58 04/27/16 06:38 60 20 100 Facial 40 04/27/16 05:57 58 152/75 04/27/16 05:39 68 17 100 Facial 40 04/27/16 04:00 81 04/27/16 04:00 97.7 65 16 152/75 99 Bi-pap 40 04/27/16 03:30 56 18 100 Facial 40 04/27/16 01:19 57 22 98 Facial 40 04/27/16 01:17 97.5 04/27/16 00:00 97.4 58 16 141/70 99 Bi-pap 40 04/27/16 00:00 65 04/26/16 23:36 62 24 98 Facial 40 04/26/16 23:35 58 18 99 Facial 40 04/26/16 21:16 80 138/84 04/26/16 21:07 59 21 99 Facial 40 04/26/16 20:00 97.5 60 16 138/84 98 Nasal Cannula 04/26/16 20:00 59 04/26/16 19:28 71 21 96 Facial 40 04/26/16 17:00 66 20 97 Facial 40 04/26/16 16:00 52 04/26/16 14:47 59 20 95 Facial 40 04/26/16 13:55 62 125/60 Intake and Output 04/26/16 04/27/16 19:00 07:00 Intake Total 1000 ml 100 ml Output Total 300 ml 500 ml Balance 700 ml -400 ml Intake Oral 1000 ml 100 ml Output Urine Total 300 ml 500 ml # Bowel Movements 1 1 Objective General Appearance: WD/WN, dyspnic HEENT: normocephalic, anicteric Respiratory/Chest: chest wall non-tender, decreased breath sounds Cardiovascular: normal peripheral pulses, normal rate Abdomen: normal bowel sounds, soft, non tender Genitourinary: normal external genitalia Extremities: no cyanosis Skin: no rash 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 Lymphatic: no neck adenopathy Laboratory Tests 04/27/16 04:00: White Blood Count 4.0L, Red Blood Count 3.22L, Hemoglobin 8.9L, Hematocrit 29.7L , Mean Corpuscular Volume 92, Mean Corpuscular Hemoglobin 27.6, Mean Corpuscular Hemoglobin Concent 29.9L, Red Cell Distribution Width 16.6H, Platelet Count 196, Mean Platelet Volume 5.4L, Neutrophils (%) (Auto) 56.5, Lymphocytes (%) (Auto) 27.4, Monocytes (%) (Auto) 9.9, Eosinophils (%) (Auto) 5.0H, Basophils (%) (Auto) 1.2, Sodium Level 146H, Potassium Level 4.5, Chloride Level 94L, Carbon Dioxide Level 47*H, Anion Gap 5, Blood Urea Nitrogen 29H, Creatinine 1.8H, Estimat Glomerular Filtration Rate , Glucose Level 111H, Calcium Level 9.8, Total Bilirubin 0.4, Aspartate Amino Transf (AST/SGOT) 13, Alanine Aminotransferase (ALT/SGPT) 5, Alkaline Phosphatase 67, Pro-B-Type Natriuretic Peptide 5178H, Total Protein 7.6, Albumin 3.6, Globulin 4.0, Albumin /Globulin Ratio 0.9L Current Medications Medications (Trade) Dose Ordered Sig/Kalyn Route PRN Reason Start Time Stop Time Status Last Admin Dose Admin Acetaminophen (Tylenol) 650 mg Q4H PRN NG Fever/Headache/Mild Pain 04/16/16 13:00 05/16/16 12:59 04/25/16 17:24 Artificial Tears (Akwa-Tears) 2 drop Q2H PRN BOTH EYES Dry Eyes 04/16/16 13:00 05/16/16 12:59 Calcium Carbonate (Calcium Carbonate) 1,300 mg THREE TIMES A DAY ORAL 04/18/16 16:44 05/16/16 12:59 04/27/16 08:54 Dextrose (Dextrose 50%) STAT PRN IV Hypoglycemia 04/16/16 13:00 05/16/16 12:59 Digoxin (Lanoxin) 0.125 mg DAILY ORAL 04/18/16 16:44 05/17/16 08:59 04/27/16 08:55 Diltiazem HCl (Cardizem) 30 mg EVERY 8 HOURS ORAL 04/18/16 16:44 05/16/16 13:59 04/26/16 21:16 Furosemide (Lasix) 80 mg EVERY 12 HOURS ORAL 04/16/16 21:00 05/16/16 20:59 04/27/16 08:54 Heparin Sodium (Porcine) (Heparin 5000 units/ml) 5,000 units EVERY 12 HOURS SUBQ 04/16/16 21:00 05/16/16 20:59 04/27/16 08:59 Insulin Aspart (NovoLOG) AC+HS SUBQ 04/18/16 22:30 05/18/16 22:29 04/27/16 12:23 Morphine Sulfate (Morphine Sulfate) 4 mg Q4H PRN IVP For Pain 04/27/16 00:45 05/04/16 00:44 04/27/16 00:47 Nystatin (Nystop Powder) 1 applic THREE TIMES A DAY TOPIC 04/16/16 13:00 05/16/16 12:59 04/27/16 08:55 Ondansetron HCl (Zofran) 4 mg Q6H PRN IVP Nausea & Vomiting 04/16/16 13:00 05/16/16 12:59 04/27/16 00:13 Pantoprazole (Protonix) 40 mg DAILY IV 04/17/16 09:00 05/17/16 08:59 04/27/16 08:54 Polyethylene Glycol (Miralax) 17 gm DAILYPRN PRN ORAL Constipation 04/18/16 16:45 05/16/16 12:59 04/20/16 21:36 Vitamin D (Vitamin D) 5,000 intlu DAILY ORAL 04/18/16 16:45 05/17/16 08:59 04/27/16 08:57 ARASH MIRANDA Apr 27, 2016 12:58
[2016-04-27] MEDS ORDERED: Metolazone 5mg tab ORAL SCH (14:00)
--- NOTE | 2016-04-27 15:55 | General Progress Note ---
Assessment/Plan Status: unchanged Status Narrative Cr 1.8 Assessment/Plan status: Acute renal failure- Cr creeping up Acute Respiratory Failure, now extubated Anemia Morbid Obesity CHF ? Sepsis Plan: post extubation care K supplement as needed- Calcium supplements with Vit D on board- Optimize cardiac and pulmonary status- Avoid Nephrotoxics- monitor renal parameters Urine studies- Keep BP over 100 syst Antibiotics Subjective ROS Limited/Unobtainable: No Constitutional: Reports: malaise, weakness Allergies: Coded Allergies: AMOXICILLIN (Verified Allergy, Mild, RASH, 12/25/09) PENICILLINS (Unverified Allergy, Unknown, 04/06/16) Objective Last 24 Hour Vital Signs Date Time Temp Pulse Resp B/P Pulse Ox O2 Delivery O2 Flow Rate FiO2 04/27/16 15:20 58 19 97 Facial 40 04/27/16 13:31 65 147/70 04/27/16 13:08 65 19 94 Facial 40 04/27/16 12:00 64 04/27/16 12:00 97.2 63 16 147/70 97 Bi-pap 40 04/27/16 10:34 63 19 97 Facial 40 04/27/16 09:10 59 20 95 Facial 40 04/27/16 08:55 63 04/27/16 08:00 96.7 68 16 158/85 99 Bi-pap 40 04/27/16 08:00 58 04/27/16 06:38 60 20 100 Facial 40 04/27/16 05:57 58 152/75 04/27/16 05:39 68 17 100 Facial 40 04/27/16 04:00 81 04/27/16 04:00 97.7 65 16 152/75 99 Bi-pap 40 04/27/16 03:30 56 18 100 Facial 40 04/27/16 01:19 57 22 98 Facial 40 04/27/16 01:17 97.5 04/27/16 00:00 97.4 58 16 141/70 99 Bi-pap 40 04/27/16 00:00 65 04/26/16 23:36 62 24 98 Facial 40 04/26/16 23:35 58 18 99 Facial 40 04/26/16 21:16 80 138/84 04/26/16 21:07 59 21 99 Facial 40 04/26/16 20:00 97.5 60 16 138/84 98 Nasal Cannula 3/20/17 20:00 59 04/26/16 19:28 71 21 96 Facial 40 04/26/16 17:00 66 20 97 Facial 40 04/26/16 16:00 52 Intake and Output 04/26/16 04/27/16 18:59 06:59 Intake Total 600 ml 500 ml Output Total 300 ml 500 ml Balance 300 ml 0 ml Intake Oral 600 ml 500 ml Output Urine Total 300 ml 500 ml # Bowel Movements 1 1 Laboratory Tests 04/27/16 04:00: White Blood Count 4.0L, Red Blood Count 3.22L, Hemoglobin 8.9L, Hematocrit 29.7L , Mean Corpuscular Volume 92, Mean Corpuscular Hemoglobin 27.6, Mean Corpuscular Hemoglobin Concent 29.9L, Red Cell Distribution Width 16.6H, Platelet Count 196, Mean Platelet Volume 5.4L, Neutrophils (%) (Auto) 56.5, Lymphocytes (%) (Auto) 27.4, Monocytes (%) (Auto) 9.9, Eosinophils (%) (Auto) 5.0H, Basophils (%) (Auto) 1.2, Sodium Level 146H, Potassium Level 4.5, Chloride Level 94L, Carbon Dioxide Level 47*H, Anion Gap 5, Blood Urea Nitrogen 29H, Creatinine 1.8H, Estimat Glomerular Filtration Rate , Glucose Level 111H, Calcium Level 9.8, Total Bilirubin 0.4, Aspartate Amino Transf (AST/SGOT) 13, Alanine Aminotransferase (ALT/SGPT) 5, Alkaline Phosphatase 67, Pro-B-Type Natriuretic Peptide 5178H, Total Protein 7.6, Albumin 3.6, Globulin 4.0, Albumin /Globulin Ratio 0.9L Height (Feet): 5 Height (Inches): 8.00 Weight (Pounds): 350 General Appearance: mild distress Cardiovascular: normal rate Respiratory/Chest: decreased breath sounds Abdomen: distended Objective other PE not changed COURTNEY LOPEZ Apr 27, 2016 15:55
--- NOTE | 2016-04-27 15:56 | Cardiac Electrophysiology PN ---
Assessment/Plan Assessment/Plan 1. Respiratory failure, due to chronic obstructive pulmonary disease and Diastolic dysfunction with BNP 7800. On BIPAP and Lasix 80 po bid. EF 55% to 60%. 2. Atrial fibrillation, rate controlled on Dig 0.125 and Cardizem 30 mg T.I.D. Off Coumadin for severe anemia. 3. HTN On Lasix and Cardizem. 4. Lower extremity cellulitis, on IV antibiotics 5. Morbid obesity. 6. CKD creatinine 1.6 7. DNI 8. Anemia, S/P Blood transfusion DW RN Going [facility] today. Subjective Subjective On BIPAP . In [place]. Atrial Fib rate controlled . RN at bedside. No events overnight. Objective Last 24 Hour Vital Signs Date Time Temp Pulse Resp B/P Pulse Ox O2 Delivery O2 Flow Rate FiO2 04/27/16 15:20 58 19 97 Facial 40 04/27/16 13:31 65 147/70 04/27/16 13:08 65 19 94 Facial 40 04/27/16 12:00 64 04/27/16 12:00 97.2 63 16 147/70 97 Bi-pap 40 04/27/16 10:34 63 19 97 Facial 40 04/27/16 09:10 59 20 95 Facial 40 04/27/16 08:55 63 04/27/16 08:00 96.7 68 16 158/85 99 Bi-pap 40 04/27/16 08:00 58 04/27/16 06:38 60 20 100 Facial 40 04/27/16 05:57 58 152/75 04/27/16 05:39 68 17 100 Facial 40 04/27/16 04:00 81 04/27/16 04:00 97.7 65 16 152/75 99 Bi-pap 40 04/27/16 03:30 56 18 100 Facial 40 04/27/16 01:19 57 22 98 Facial 40 04/27/16 01:17 97.5 04/27/16 00:00 97.4 58 16 141/70 99 Bi-pap 40 04/27/16 00:00 65 04/26/16 23:36 62 24 98 Facial 40 04/26/16 23:35 58 18 99 Facial 40 04/26/16 21:16 80 138/84 04/26/16 21:07 59 21 99 Facial 40 04/26/16 20:00 97.5 60 16 138/84 98 Nasal Cannula 04/26/16 20:00 59 04/26/16 19:28 71 21 96 Facial 40 04/26/16 17:00 66 20 97 Facial 40 04/26/16 16:00 52 Intake and Output 04/26/16 04/27/16 19:00 07:00 Intake Total 1000 ml 100 ml Output Total 300 ml 500 ml Balance 700 ml -400 ml Intake Oral 1000 ml 100 ml Output Urine Total 300 ml 500 ml # Bowel Movements 1 1 Laboratory Tests Test 04/27/16 04:00 White Blood Count 4.0 K/UL (4.8-10.8) L Red Blood Count 3.22 M/UL (4.20-5.40) L Hemoglobin 8.9 G/DL (12.0-16.0) L Hematocrit 29.7 % (37.0-47.0) L Mean Corpuscular Volume 92 FL (80-99) Mean Corpuscular Hemoglobin 27.6 PG (27.0-31.0) Mean Corpuscular Hemoglobin Concent 29.9 G/DL (32.0-36.0) L Red Cell Distribution Width 16.6 % (11.6-14.8) H Platelet Count 196 K/UL (150-450) Mean Platelet Volume 5.4 FL (6.5-10.1) L Neutrophils (%) (Auto) 56.5 % (45.0-75.0) Lymphocytes (%) (Auto) 27.4 % (20.0-45.0) Monocytes (%) (Auto) 9.9 % (1.0-10.0) Eosinophils (%) (Auto) 5.0 % (0.0-3.0) H Basophils (%) (Auto) 1.2 % (0.0-2.0) Sodium Level 146 mEQ/L (135-145) H Potassium Level 4.5 mEQ/L (3.4-4.9) Chloride Level 94 mEQ/L (98-107) L Carbon Dioxide Level 47 mEQ/L (20-30) *H Anion Gap 5 (5-15) Blood Urea Nitrogen 29 mg/dL (7-23) H Creatinine 1.8 mg/dL (0.5-0.9) H Estimat Glomerular Filtration Rate mL/min (>60) Glucose Level 111 mg/dL (74-106) H Calcium Level 9.8 mg/dL (8.6-10.2) Total Bilirubin 0.4 mg/dL (0.0-1.2) Aspartate Amino Transf (AST/SGOT) 13 U/L (5-40) Alanine Aminotransferase (ALT/SGPT) 5 U/L (3-33) Alkaline Phosphatase 67 U/L (35-104) Pro-B-Type Natriuretic Peptide 5178 pg/mL (0-125) H Total Protein 7.6 g/dL (6.6-8.7) Albumin 3.6 g/dL (3.5-5.2) Globulin 4.0 g/dL Albumin/Globulin Ratio 0.9 (1.0-2.7) L Objective HEAD AND NECK: No JVD. BIPAP on LUNGS: Coarse rhonchi CARDIOVASCULAR: Irregularly irregular S1 and S2 with no murmur. ABDOMEN: Morbidly obese. EXTREMITIES: 1+ pitting edema JOHN NUÑEZ Apr 27, 2016 15:56
--- NOTE | 2016-04-27 21:29 | General Progress Note ---
Assessment/Plan Status: progressing Assessment/Plan Diagnosis 1. Acute hypoxemic and hypercapnic respiratory failure requiring intubation. 2. Acute kidney injury. 3. Morbid obesity. 4. Hypokalemia 5. Diabetes mellitus. 6. Congestive heart failure. 7. Chronic obstructive pulmonary disease exacerbation 8. Pulmonary hypertension. 9. severe edema/anasarca 10. Acute anemia 11. Acute diastolic heart failure 12. left lower extremity cellulitis 13. Pneumonia 14. s/p extubation on 04/14/16 now on BiPap 15. ?yeast vaginitis 16. pleural effsuion 17. enterococus UTI plan: -transfered out of ICU on 04/16/16 -continue present care -daily labs -Biapap per Dr. Rene -finished course of IV antibiotics, monitor off abx per Dr. Milan -nephrology input appreciated -cardiology input appreciated -type and cross match for one unit of PRBC -continue lasix 80 mg po bid, I's and O's -continue pt/ot out of bed to cardiac chair -change pichardo, urinalysis and urine culture -zaroxylin started by pulmonary -finished zyvox per ID, will request social work consult for, patient does not want to go back to [facility] at this time discussed with Nurse FULL code dc planning to [facility] when transportation is available replace kylee Subjective Date patient seen: Apr 27, 2016 Time patient seen: 21:27 ROS Limited/Unobtainable: Yes Allergies: Coded Allergies: AMOXICILLIN (Verified Allergy, Mild, RASH, 12/25/09) PENICILLINS (Unverified Allergy, Unknown, 04/06/16) Subjective requiring continuous Bipap and zoroxylyn started today by pulmonary Objective Last 24 Hour Vital Signs Date Time Temp Pulse Resp B/P Pulse Ox O2 Delivery O2 Flow Rate FiO2 04/27/16 21:17 57 21 97 Facial 40 04/27/16 20:00 97.7 62 22 149/78 99 Bi-pap 40 04/27/16 20:00 40 04/27/16 19:12 60 20 95 Facial 40 04/27/16 16:52 56 19 97 Facial 40 04/27/16 16:00 40 04/27/16 16:00 63 04/27/16 16:00 97.5 65 20 164/65 98 Bi-pap 40 04/27/16 15:20 58 19 97 Facial 40 04/27/16 13:31 65 147/70 04/27/16 13:08 65 19 94 Facial 40 04/27/16 12:00 64 04/27/16 12:00 97.2 63 16 147/70 97 Bi-pap 40 04/27/16 10:34 63 19 97 Facial 40 04/27/16 09:10 59 20 95 Facial 40 04/27/16 08:55 63 04/27/16 08:00 96.7 68 16 158/85 99 Bi-pap 40 04/27/16 08:00 58 04/27/16 06:38 60 20 100 Facial 40 04/27/16 05:57 58 152/75 04/27/16 05:39 68 17 100 Facial 40 04/27/16 04:00 81 04/27/16 04:00 97.7 65 16 152/75 99 Bi-pap 40 04/27/16 03:30 56 18 100 Facial 40 04/27/16 01:19 57 22 98 Facial 40 04/27/16 01:17 97.5 04/27/16 00:00 97.4 58 16 141/70 99 Bi-pap 40 04/27/16 00:00 65 04/26/16 23:36 62 24 98 Facial 40 04/26/16 23:35 58 18 99 Facial 40 Intake and Output 04/26/16 04/27/16 19:00 07:00 Intake Total 1000 ml 100 ml Output Total 300 ml 500 ml Balance 700 ml -400 ml Intake Oral 1000 ml 100 ml Output Urine Total 300 ml 500 ml # Bowel Movements 1 1 Laboratory Tests 04/27/16 04:00: White Blood Count 4.0L, Red Blood Count 3.22L, Hemoglobin 8.9L, Hematocrit 29.7L , Mean Corpuscular Volume 92, Mean Corpuscular Hemoglobin 27.6, Mean Corpuscular Hemoglobin Concent 29.9L, Red Cell Distribution Width 16.6H, Platelet Count 196, Mean Platelet Volume 5.4L, Neutrophils (%) (Auto) 56.5, Lymphocytes (%) (Auto) 27.4, Monocytes (%) (Auto) 9.9, Eosinophils (%) (Auto) 5.0H, Basophils (%) (Auto) 1.2, Sodium Level 146H, Potassium Level 4.5, Chloride Level 94L, Carbon Dioxide Level 47*H, Anion Gap 5, Blood Urea Nitrogen 29H, Creatinine 1.8H, Estimat Glomerular Filtration Rate , Glucose Level 111H, Calcium Level 9.8, Total Bilirubin 0.4, Aspartate Amino Transf (AST/SGOT) 13, Alanine Aminotransferase (ALT/SGPT) 5, Alkaline Phosphatase 67, Pro-B-Type Natriuretic Peptide 5178H, Total Protein 7.6, Albumin 3.6, Globulin 4.0, Albumin /Globulin Ratio 0.9L Height (Feet): 5 Height (Inches): 8.00 Weight (Pounds): 350 General Appearance: WD/WN, morbidly obese EENT: PERRL/EOMI Neck: non-tender Cardiovascular: normal peripheral pulses Respiratory/Chest: chest wall non-tender, lungs clear Abdomen: no organomegaly Extremities: normal range of motion, swelling Edema: no edema noted Arm (L), no edema noted Arm (R), 1+ Leg (L), 1+ Leg (R), 1+ Pedal (L), 1+ Pedal (R), 1+ Generalized Edema: moderate edema 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
--- NOTE | 2016-04-28 08:27 | Diagnostic Imaging Report ---
Indication: DYSPNEA Technique: One view of the chest Comparison: 04/26/2016 Findings: The patient is rotated to the left. There is persistent left retrocardiac opacification and obscuration of left hemidiaphragm. Equivocal mild interstitial congestive changes persists and are stable. Left arm PICC remains. Findings are overall unchanged. Impression: Unchanged, over one day, findings as above.
--- NOTE | 2016-04-29 17:41 | Discharge Summary ---
Discharge Summary Hospital Course Date of Admission Apr 06, 2016 at 07:24 Date of Discharge Apr 27, 2016 at 23:30 Admitting Diagnosis respiratory failure, hypoxia HPI Kamille Christopher is a 75 year old female who was admitted on Apr 06, 2016 at 07: 24 for Respiratory Failure,Hypoxia Hospital Course [id number] Discharge Discharge Disposition Patient was discharged to [facility] Discharge Diagnoses: Angeline Swenson NP Apr 29, 2016 17:41
--- NOTE | 2016-04-30 06:58 | Discharge Summary 2 SIG ---
DATE OF ADMISSION: 04/06/2016 DATE OF DISCHARGE: 04/27/2016 CONSULTANTS: 1. Elidia Rene M.D. 2. Alfred Mary M.D. 3. Luca Milan M.D. 4. Agustin Cummings M.D. BRIEF HOSPITAL COURSE: The patient is a 75-year-old female, resident of [facility] was transferred via EMS to [facility] for complaints of respiratory distress. She has past medical history significant for morbid obesity, respiratory failure with hypercapnia, CHF, pulmonary hypertension, and left leg cellulitis. At group home, she was noted to be hypoxemic and O2 saturation was down to 82%. She was tachypneic and tachycardic. On evaluation at ED, showed leukocytosis. Chest x-ray with cardiomegaly and pleural effusion with opacification of the right lower lobe. At ED, she was initially placed on BiPAP ; however, continued to decline and was orally intubated. EKG showed rapid atrial fibrillation. The patient was admitted to ICU for respiratory failure, acute kidney injury, atrial fibrillation, and leukocytosis. She was placed on NPO with feeding via NG tube. She was started empirically on Levaquin, vancomycin, and Azactam. Sputum culture showed normal teri. Urine with VRE. She was started on Cardizem t.i.d. with digoxin, and was given Lasix drip. She was eventually extubated on 04/14/2016 and was transferred out of ICU on 04/16/2016. She was continued on BiPAP. She had an episode of anemia and received two units packed RBC transfusion. Lasix drip was discontinued and was placed on Lasix IV b.i.d. Zaroxolyn was added. Renal parameters have been stable. She came in with a skin tear on the left lower leg and inferior breast intertrigo. Wound care was rendered. She was unable to be weaned off BiPAP. She was eventually transferred to [facility]. FINAL DIAGNOSES: 1. Sepsis possibly from pneumonia and UTI. 2. Acute hypoxemic and hypercapnic respiratory failure requiring intubation, status post extubation. 3. Chronic hypercapnic respiratory failure, on BiPAP. 4. Acute kidney injury. 5. Morbid obesity. 6. Hypokalemia. 7. Diabetes mellitus. 8. Acute on chronic heart failure, diastolic dysfunction. 9. Atrial fibrillation with rapid ventricular response. 10. Acute chronic obstructive pulmonary disease exacerbation. 11. Diabetes mellitus. 12. Pulmonary hypertension. 13. Severe edema/anasarca. 14. Acute anemia requiring blood transfusion. 15. Left lower extremity cellulitis, present on admission. 16. Yeast vaginitis. 17. Enterococcal urinary tract infection. 18. Pleural effusion. 19. A skin tear on the left leg and breasts intertrigo, present on admission. Manny Nolan M.D. I have been assigned to dictate discharge summary on this account and I was not involved in the patient's management. Angeline Swenson N.P. DR: RAYNA JOB#: [id number] CC: LOBO
--- NOTE | 2016-05-12 13:35 | Diagnostic Imaging Report ---
Indication: Dyspnea Comparison: 04/06/16 A single view chest radiograph was obtained. Findings: Endotracheal tube is again noted. There is central hilar prominence again noted without significant change. Heart size is prominent but stable. Impression: No change from the prior day
== END 2016-04-27 23:30 | DRG 870 ==
LOC: EDBD 06:36 → EMR 07:22 → ICU 07:24 → EDBEDREQ 08:56 → 2W 04-16 12:40
PROC: 5A1955Z Respiratory Ventilation, Greater than 96 Consecutive Hours (ICD-10-PCS; principal; 2016-04-06)
PROC: 0BH17EZ Insertion of Endotracheal Airway into Trachea, Via Natural or Artificial Opening (ICD-10-PCS; principal; 2016-04-06)
PROC: 05H433Z Insertion of Infusion Device into Left Innominate Vein, Percutaneous Approach (ICD-10-PCS; 2016-04-07)
PROC: 30233N1 Transfusion of Nonautologous Red Blood Cells into Peripheral Vein, Percutaneous Approach (ICD-10-PCS; 2016-04-09)
PROC: 5A09557 Assistance with Respiratory Ventilation, Greater than 96 Consecutive Hours, Continuous Positive Airway Pressure (ICD-10-PCS; 2016-04-14)
DX: A41.9 Sepsis, unspecified organism (principal); J18.9 Pneumonia, unspecified organism; N17.9 Acute kidney failure, unspecified; I50.33 Acute on chronic diastolic (congestive) heart failure; I27.2 Other secondary pulmonary hypertension; J96.01 Acute respiratory failure with hypoxia; J96.02 Acute respiratory failure with hypercapnia; Z99.11 Dependence on respirator [ventilator] status; Z68.43 Body mass index [BMI] 50.0-59.9, adult; I48.2 Chronic atrial fibrillation; L03.116 Cellulitis of left lower limb; J44.1 Chronic obstructive pulmonary disease with (acute) exacerbation; N39.0 Urinary tract infection, site not specified; R65.20 Severe sepsis without septic shock; E87.5 Hyperkalemia; E11.9 Type 2 diabetes mellitus without complications; Z88.1 Allergy status to other antibiotic agents; Z88.0 Allergy status to penicillin; E66.01 Morbid (severe) obesity due to excess calories; D64.9 Anemia, unspecified; B37.3 Candidiasis of vulva and vagina; B95.2 Enterococcus as the cause of diseases classified elsewhere; Z66 Do not resuscitate; L30.4 Erythema intertrigo; S81.812A Laceration without foreign body, left lower leg, initial encounter; X58.XXXA Exposure to other specified factors, initial encounter; K21.9 Gastro-esophageal reflux disease without esophagitis; R62.7 Adult failure to thrive; E87.79 Other fluid overload
CPT/HCPCS: 36415; 36569; 36600; 71010; 74000; 76775; 76937; 80048; 80053; 80061; 80069; 80162; 80202; 81001; 81003; 82378; 82436; 82533; 82550; 82553; 82607; 82746; 82803; 82962; 82977; 83036; 83540; 83550; 83605; 83615; 83735; 83880; 83930; 83935; 84100; 84133; 84300; 84439; 84443; 84478; 84481; 84484; 84550; 85007; 85025; 85044; 85060; 85379; 85610; 85651; 85730; 86140; 86850; 86900; 86901; 86920; 87040; 87070; 87081; 87086; 87181; 87205; 89050; 93005; 93306; 93971; 94002; 94003; 94640; 94660; 94760; J1815; J2405; J8499

== ENCOUNTER 2016-09-06 17:55 | Inpatient (IN) | payer MEDICAID, MEDICARE ==
[~2016-09-06] VITALS: Ht 162.6 cm; Wt 158.8 kg
[~2016-09-06 17:55] MED LIST changes: +DOCUSATE SODIU100 MG ORAL; +ELIQUIS2.5 MG PO; +FEMARA2.5 MG ORAL; +FLUTICASONE PRO16 G1 NASAL; +FOLIC ACID1 MG ORAL; +FUROSEMIDE40 MG ORAL; +GABAPENTIN600 MG ORAL; +LIDOCAINE700 M1 TP; +MIRALAX17 G2 ORAL; +OS-CAL1250 MG ORAL; +PANTOPRAZOLE SO20 MG ORAL; +PRAVASTATIN SOD20 M1 ORAL; +PREDNISONE10 MG ORAL; +PROBIOTIC1 EAC2 PO; +ROCATROL0.25 MCG ORAL; +VIAGRA50 MG ORAL; +VITAMIN B-122000 MC1 PO; +VITAMIN B-12500 MCG ORAL; -Vancomycin 1gm inj IVPB ONE
[2016-09-06 18:05] VITALS: BP 140/85
--- NOTE | 2016-09-06 18:09 | Emergency Room Report ---
History of Present Illness General Chief Complaint: Dyspnea/Respdistress Source: Patient, Medical Record, EMS Present Illness HPI [id number] BIBEMS from SNF with hypoxia per EMS. also concern for coffee ground emesis, nausea. Patient not sure why she is here. No family members bedside. No other info from EMS. PMhx: Morbid obesity, respir failure, CHF, pulm HTN, left leg cellulitis, anemia Admission 04/06-04/27 Had PNA RLL, intubated Blood Cx negative at that time Allergies: Coded Allergies: AMOXICILLIN (Verified Allergy, Mild, RASH, 12/25/09) MORPHINE (Unverified Allergy, Unknown, 09/06/16) PENICILLINS (Unverified Allergy, Unknown, 04/06/16) Patient History Past Medical History: other - see my HPI Past Surgical History: unable to obtain Pertinent Family History: none Social History: Denies: alcohol use, drug use, smoking Now: No Immunizations: UTD Reviewed Nursing Documentation: PMH: Agreed, PSxH: Agreed Nursing Documentation-PMH Past Medical History: No History, Except For Hx Cardiac Problems: Yes - CHRONIC COMBINED SYSTOLIC AND DIASTOLIC HEART FAILURE Hx Hypertension: Yes - CHRONIA AFIB, ANEMIA, Hx COPD: Yes Hx Diabetes: Yes Hx Cancer: Yes - Breast CA Hx Gastrointestinal Problems: Yes - GERD, DIFFICULTY WALKING Hx Neurological Problems: Yes - CELLULITIS OF LOWER LIMB, MUSCLE WEAKNESS Review of Systems All Other Systems: negative except mentioned in HPI Physical Exam Vital Signs Date Time Temp Pulse Resp B/P Pulse Ox O2 Delivery O2 Flow Rate FiO2 09/06/16 17:55 97.9 96 20 159/80 99 Mechanical Ventilator 15.0 Sp02 EP Interpretation: reviewed, normal General Appearance: normal inspection, well appearing, no apparent distress, alert, GCS 15, non-toxic, obese Head: normocephalic, atraumatic Eyes: bilateral eye EOMI, bilateral eye PERRL ENT: normal ENT inspection, hearing grossly normal, normal voice Neck: normal inspection, full range of motion, supple, no bony tend Respiratory: normal inspection, no respiratory distress, no retraction, no accessory muscle use, decreased breath sounds, speaking full sentences Cardiovascular #1: JVD, tachycardia Gastrointestinal: normal inspection, normal bowel sounds, non tender, soft, no guarding, no hernia Genitourinary: no CVA tenderness Musculoskeletal: normal inspection, back normal, normal range of motion, Geetha' s Sign negative, other - Bilateral lower extremity severe edema, swelling Neurologic: normal inspection, alert, responsive, speech normal Psychiatric: normal inspection, judgement/insight normal, mood/affect normal Medical Decision Making Medicare Attestation I Sean Truong MD hereby attest that the medical record entry for date of service, 01/12/16 accurately reflects signatures/notations that I made in my capacity as MD when I treated/diagnosed the above listed Medicare beneficiary. I attest that this information is true, accurate and complete to the best of my knowledge. I understand that any falsification, omission, or concealment of material fact may subject me to administrative, civil, or criminal liability. This patient warrants hospital admission for extreme of age and has a condition that cannot be treated as outpatient. Diagnostic Impression: Primary Impression: Dyspnea Qualified Codes: R06.00 - Dyspnea, unspecified Additional Impressions: Anemia Qualified Codes: D64.9 - Anemia, unspecified COPD (chronic obstructive pulmonary disease) Qualified Codes: J44.9 - Chronic obstructive pulmonary disease, unspecified CHF (congestive heart failure) Qualified Codes: I50.42 - Chronic combined systolic (congestive) and diastolic (congestive) heart failure Hypercapnia Hyperkalemia CKD (chronic kidney disease) Qualified Codes: N18.9 - Chronic kidney disease, unspecified ER Course Dyspnea - VS stable here. Afebrile - Poor air movement, JVD. - Albuterol given - Started on Bipap Labs: Hb 7.9 CXR: relativelu unchanged from April 2016. RLLL ECG: Atrial fib. Not in RVR - Multifactorial? Known COPD, CHF, acute on chronic anemia - Improved aeration ob BIPAP - Transfused 2 U PRBC in ED - Afebrile, no leuks. Will HOLD on Abx at this time, especially since Blood Cx were negative on previous admit and vitals otherwise stable HyperK -5.8 - Given insulin/dextrose, nebs, kayexelate VERONICA on CKD Upper GI bleed - Spoke to Dr Pierce. Coffee ground emesis is new. Has been scoped before, no acute findings. - Prononix bolus and gtt started - Dr Kruse consulted 755pm Endorsed to Dr Pierce for [facility] admit at 8pm EKG Diagnostic Results Rate: tachycardiac Rhythm: other - Atrial fib ST Segments: no acute changes ASA given to the pt in ED: No Rhythm Strip Diag. Results EP Interpretation: yes Rate: 101 Rhythm: NSR, no PVC's, no ectopy Chest X-Ray Diagnostic Results Chest X-Ray Diagnostic Results : Chest X-Ray Ordered: Yes # of Views/Limited/Complete: 1 View Indication: Shortness of Breath EP Interpretation: Yes Interpretation: no consolidation, no effusion, no pneumothorax, no acute cardiopulmonary disease, other - +cardiomegaly Impression: No acute disease Interpreting ER Provider: Electronically signed by Dr Truong Last Vital Signs Date Time Temp Pulse Resp B/P Pulse Ox O2 Delivery O2 Flow Rate FiO2 09/06/16 17:55 97.9 96 20 159/80 99 Mechanical Ventilator 15.0 Status: improved Disposition: ADMITTED INPATIENT Condition: Serious SEAN TRUONG M.D. Sep 06, 2016 18:09
[2016-09-06] MEDS ORDERED: Albuterol ud Inhalation HHN ONE ×2 (18:45→19:45)
[2016-09-06 19:07] LABS: MEAN CORPUSCULAR HEMOGLOBIN 29.8 PG (27.0-31.0); MEAN CORPUSCULAR HGB CONC 30.5 G/DL (32.0-36.0); MEAN CORPUSCULAR VOLUME 98 FL (80-99); PLATELET COUNT 163 K/UL (150-450); RED BLOOD COUNT 2.64 M/UL (4.20-5.40); RED CELL DISTRIBUTION WIDTH 14.2 % (11.6-14.8); WHITE BLOOD COUNT 7.2 K/UL (4.8-10.8)
[2016-09-06 19:30] LABS: TROPONIN I < 0.30 ng/mL (<=0.30)
[2016-09-06 19:33] LABS: ALANINE AMINOTRANSFERASE 6 U/L (3-33); ANION GAP 6 (5-15); ASPARTATE AMINO TRANSFERASE 17 U/L (5-40); CALCIUM 9.6 mg/dL (8.6-10.2); CHLORIDE 93 mEQ/L (98-107); CREATININE 2.1 mg/dL (0.5-0.9); HEMOLYSIS 2; POTASSIUM 5.8 mEQ/L (3.4-4.9); SODIUM 141 mEQ/L (135-145); TOTAL PROTEIN 7.6 g/dL (6.6-8.7)
[2016-09-06 19:34] VITALS: BP 131/77
[2016-09-06 19:40] LABS: CARBON DIOXIDE 42 mEQ/L (20-30)
[2016-09-06 19:43] LABS: CKMB 1.6 ng/mL (< 3.8)
[2016-09-06] MEDS ORDERED: Sodium Polystyrene Sulfonate 15gm Powder ORAL ONE (19:45)
[2016-09-06] MEDS ORDERED: Calcium Gluconate 1gm/10ml vial IVP ONE (19:45)
[2016-09-06 19:52] LABS: BAND NEUTROPHILS % (MANUAL) 0 % (0-8); BASOPHILS % (MANUAL) 0 % (0-2); EOSINOPHILS % (MANUAL) 3 % (0-3); LYMPHOCYTES % (MANUAL) 7 % (20-45); NEUTROPHILS % (MANUAL) 80 % (45-75); PLATELET ESTIMATE ADEQUATE; PLATELET MORPHOLOGY NORMAL; TOTAL CELLS COUNTED 100
[2016-09-06] MEDS ORDERED: Pantoprazole 80 MG in NS 250 ML IV SCH (20:00)
[2016-09-06] MEDS ORDERED: Pantoprazole Inj IVP SCH (20:00)
[2016-09-06] MEDS ORDERED: Pantoprazole Inj ONE (20:12)
[2016-09-06 22:29] VITALS: BP 126/70
[2016-09-06] MEDS ORDERED: DuoNeb 0.5-3(2.5)mg/3ml neb HHN PRN (22:30)
[2016-09-06] MEDS ORDERED: Miralax 17gm pkt ORAL PRN (22:30)
[2016-09-06 23:00] VITALS: BP 127/55
--- NOTE | 2016-09-06 23:31 | General Progress Note ---
Assessment/Plan Assessment/Plan Assessment - UGIB - Anemia-Last EGD/Colon 05/2014 (duodenal AVM- cauterized, mild diverticulosis) - Chronic hypercapnic resp failure - Hyperkalemia - Renal failure - Morbid obesity - CHF - atrial fibrillation - guarded Recommendations - Not a candidate for endoscopy due to compromised respiratory status - Rx empirically with PPI - Monitor H&H - Transfuse PRN - Elevate HOB - Hold systemic anticoagulation temporarily (SQ hep prophylaxis OK), if OK from medical standpoint Thank you Mary Rodriguez MD Subjective Allergies: Coded Allergies: AMOXICILLIN (Verified Allergy, Mild, RASH, 12/25/09) MORPHINE (Unverified Allergy, Unknown, 09/06/16) PENICILLINS (Unverified Allergy, Unknown, 04/06/16) Objective Last 24 Hour Vital Signs Date Time Temp Pulse Resp B/P Pulse Ox O2 Delivery O2 Flow Rate FiO2 09/06/16 22:39 83 31 93 Facial 30 09/06/16 22:29 96.8 96 14 126/70 97 15.0 30 09/06/16 22:25 96.8 91 14 09/06/16 20:45 87 25 97 Facial 30 09/06/16 20:12 101 28 100 Bi-pap 30 09/06/16 20:00 97 35 97 Bi-pap 30 09/06/16 19:34 97.9 96 26 131/77 100 Bi-pap 15.0 30 09/06/16 19:14 91 28 100 Bi-pap 30 09/06/16 19:13 87 35 100 Bi-pap 30 09/06/16 19:10 89 35 98 Facial 30 09/06/16 19:00 30 09/06/16 18:05 98 24 Non-Rebreather 15.0 09/06/16 18:05 98 24 140/85 100 Non-Rebreather 09/06/16 17:55 97.9 96 20 159/80 99 Mechanical Ventilator 15.0 Laboratory Tests 09/06/16 18:20: White Blood Count 7.2, Red Blood Count 2.64L, Hemoglobin 7.9L, Hematocrit 25.8L , Mean Corpuscular Volume 98, Mean Corpuscular Hemoglobin 29.8, Mean Corpuscular Hemoglobin Concent 30.5L, Red Cell Distribution Width 14.2, Platelet Count 163, Mean Platelet Volume 6.0L, Neutrophils (%) (Auto) , Lymphocytes (%) (Auto) , Monocytes (%) (Auto) , Eosinophils (%) (Auto) , Basophils (%) (Auto) , Differential Total Cells Counted 100, Neutrophils % ( Manual) 80H, Lymphocytes % (Manual) 7L, Monocytes % (Manual) 10, Eosinophils % ( Manual) 3, Basophils % (Manual) 0, Band Neutrophils 0, Platelet Estimate Adequate, Platelet Morphology Normal, Red Blood Cell Morphology Normal, Sodium Level 141, Potassium Level 5.8H, Chloride Level 93L, Carbon Dioxide Level 42*H, Anion Gap 6, Blood Urea Nitrogen 39H, Creatinine 2.1H, Estimat Glomerular Filtration Rate , Glucose Level 140H, Calcium Level 9.6, Total Bilirubin 0.4, Aspartate Amino Transf (AST/SGOT) 17, Alanine Aminotransferase (ALT/SGPT) 6, Alkaline Phosphatase 66, Total Creatine Kinase 61, Creatine Kinase MB 1.6, Creatine Kinase MB Relative Index 2.6, Troponin I < 0.30, Pro-B-Type Natriuretic Peptide 8548H, Total Protein 7.6, Albumin 3.9, Globulin 3.7, Albumin /Globulin Ratio 1.0 Height (Feet): 5 Height (Inches): 4.00 Weight (Pounds): 180 MARY RODRIGUEZ Sep 06, 2016 23:31
[2016-09-07 04:00] VITALS: BP 128/78
[2016-09-07] MEDS: Pantoprazole Inj IVP SCH ×2 (06:13→20:15)
[2016-09-07 06:46] LABS: EOSINOPHILS % (AUTO) 2.9 % (0.0-3.0); LYMPHOCYTES % (AUTO) 14.9 % (20.0-45.0); MEAN CORPUSCULAR HEMOGLOBIN 28.9 PG (27.0-31.0); MEAN CORPUSCULAR HGB CONC 30.7 G/DL (32.0-36.0); MEAN CORPUSCULAR VOLUME 94 FL (80-99); MEAN PLATELET VOLUME 5.5 FL (6.5-10.1); MONOCYTES % (AUTO) 8.5 % (1.0-10.0); NEUTROPHILS % (AUTO) 72.8 % (45.0-75.0); PLATELET COUNT 156 K/UL (150-450); RED BLOOD COUNT 2.96 M/UL (4.20-5.40); RED CELL DISTRIBUTION WIDTH 15.1 % (11.6-14.8)
[2016-09-07] MEDS ORDERED: NS IVPB SCH (07:00)
[2016-09-07] MEDS ORDERED: AZTREONAM IVPB SCH (07:00)
[2016-09-07 07:18] LABS: INR 1.2 (0.9-1.1); PROTHROMBIN TIME 12.6 SEC (9.30-11.50)
[2016-09-07 07:30] LABS: TROPONIN I < 0.30 ng/mL (<=0.30)
[2016-09-07 07:39] LABS: LACTATE DEHYDROGENASE 217 U/L (135-230)
[2016-09-07 08:03] LABS: HEMOLYSIS 0; IRON 14 ug/dL (37-145); TOTAL IRON BINDING CAPACITY 30 ug/dL (250-400)
[2016-09-07] MEDS: NS IVPB SCH ×3 (08:07→21:13)
[2016-09-07] MEDS: AZTREONAM IVPB SCH ×3 (08:07→21:13)
[2016-09-07 08:15] VITALS: BP 107/60
[2016-09-07 08:15] LABS: ANION GAP 8 (5-15); CALCIUM 9.4 mg/dL (8.6-10.2); CHLORIDE 95 mEQ/L (98-107); HEMOLYSIS 2; PHOSPHORUS 4.6 mg/dL (2.5-4.8); POTASSIUM 5.4 mEQ/L (3.4-4.9); SODIUM 144 mEQ/L (135-145)
[2016-09-07 08:20] LABS: CARBON DIOXIDE 41 mEQ/L (20-30)
[2016-09-07 08:51] LABS: ANISOCYTOSIS 1+; BAND NEUTROPHILS % (MANUAL) 0 % (0-8); BASOPHILS % (MANUAL) 1 % (0-2); EOSINOPHILS % (MANUAL) 3 % (0-3); LYMPHOCYTES % (MANUAL) 13 % (20-45); NEUTROPHILS % (MANUAL) 78 % (45-75); PLATELET ESTIMATE ADEQUATE; PLATELET MORPHOLOGY NORMAL; TOTAL CELLS COUNTED 100
[2016-09-07 08:55] LABS: STOMATOCYTES 1+
[2016-09-07 08:56] LABS: HYPOCHROMASIA 1+
[2016-09-07] MEDS ORDERED: Eliquis 2.5mg tablet ORAL SCH (09:00)
[2016-09-07] MEDS ORDERED: Heparin 5000 units/ml inj SUBQ SCH (09:00)
--- NOTE | 2016-09-07 09:15 | Diagnostic Imaging Report ---
Indications: DYSPNEA Technique: Portable AP chest Findings: Comparison: 09/06/16 Cardiomegaly, mild bilateral interstitial infiltrates, left midlung linear density, small right and possible left pleural effusions persist, unchanged. New abnormality identified. IMPRESSION: Stable bilateral congestive changes
[2016-09-07 09:21] LABS: ERYTHROCYTE SEDIMENTATION RATE 82 MM/HR (0-30)
[2016-09-07 09:22] LABS: PATH BLOOD SMEAR/OMC SENT TO PATHOLOGIST
--- NOTE | 2016-09-07 10:13 | Diagnostic Imaging Report ---
Indications: ] Technique: Portable AP chest Findings: Comparison: 04/27/16 Cardiomegaly, pulmonary vascular redistribution, bilateral interstitial prominence persists. Linear density has developed in the left midlung. Left costophrenic angle remains indistinct; right sharp. PICC has been removed. IMPRESSION: Bilateral congestive changes, persistent versus recurrent since previous exam Suggestion of development of subsegmental atelectasis left midlung
--- NOTE | 2016-09-07 11:57 | Consultation ---
History of Present Illness General Date patient seen: Sep 07, 2016 Chief Complaint: Dyspnea/Respdistress Present Illness HPI 75 year old female with pMHx of morbid obesity, CKD stage 3, MINA, pulmonary hypertension, previous GI bleeding, skilled nursing resident brought in by paramedics with CC of coffee ground emesis with hypoxia. She was in respiratory failure in ER and was put on BIPAP and transferred to [facility]. Currently she is comfortable and doesn't seem to have any distress on BIPAP. Allergies: Coded Allergies: AMOXICILLIN (Verified Allergy, Mild, RASH, 12/25/09) MORPHINE (Unverified Allergy, Unknown, 09/06/16) PENICILLINS (Unverified Allergy, Unknown, 04/06/16) Medication History Scheduled Apixaban (Eliquis), 2.5 MG PO BID, (Reported) Calcitriol (Calcitriol), 0.25 MCG ORAL DAILY, (Reported) Calcium Carbonate (Calcium Carbonate), 1,250 MG ORAL BID, (Reported) Cyanocobalamin (Vitamin B-12)* (Vitamin B-12*), 3,000 MCG ORAL DAILY, (Reported) Docusate Sodium* (Docusate Sodium*), 100 MG ORAL TWICE A DAY, (Reported) Fluticasone Propionate* (Fluticasone Propionate*), 1 SPRAY NASAL DAILY, ( Reported) Folic Acid* (Folic Acid*), 1 MG ORAL DAILY, (Reported) Furosemide* (Lasix*), 20 MG ORAL TWICE A DAY, (Reported) Gabapentin* (Gabapentin*), 600 MG ORAL TWICE A DAY, (Reported) Lactobacillus Acidophilus (Probiotic), 1 EACH PO DAILY, (Reported) Letrozole (Femara), 2.5 MG ORAL DAILY, (Reported) Lidocaine (Lidocaine), 700 MG TP EVERY 24 HOURS, (Reported) Pantoprazole (Pantoprazole), 40 MG ORAL DAILY, (Reported) Polyethylene Glycol 3350* (Miralax*), 17 GM ORAL DAILY, (Reported) Pravastatin Sod* (Pravastatin Sod*), 20 MG ORAL BEDTIME, (Reported) Prednisone* (Prednisone*), 10 MG ORAL DAILY, (Reported) Sildenafil Citrate (Viagra), 60 MG ORAL TID, (Reported) Patient History Healthcare decision maker Resuscitation status Chemical (Meds Only) Advanced Directive on File Past Medical/Surgical History Past Medical/Surgical History: (1) MINA (obstructive sleep apnea) (2) Anemia (3) CHF (congestive heart failure) (4) Hyperkalemia (5) CKD (chronic kidney disease) (6) COPD (chronic obstructive pulmonary disease) Review of Systems All Other Systems: negative except mentioned in HPI Physical Exam General Appearance: overweight, morbidly obese Lines, tubes and drains: peripheral HEENT: normocephalic, atraumatic Neck: non-tender, normal alignment Respiratory/Chest: chest wall non-tender, lungs clear, normal breath sounds Cardiovascular/Chest: normal peripheral pulses, normal rate Abdomen: normal bowel sounds Genitourinary/Rectal: normal genital exam Extremities: normal range of motion, non-tender 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 Last 24 Hour Vital Signs Date Time Temp Pulse Resp B/P Pulse Ox O2 Delivery O2 Flow Rate FiO2 09/07/16 10:51 80 16 94 Facial 35 09/07/16 08:38 80 16 94 Facial 35 09/07/16 08:15 96.8 91 15 107/60 94 Bi-pap 35 09/07/16 08:00 84 09/07/16 08:00 35 09/07/16 06:33 84 16 92 Facial 30 09/07/16 05:00 81 28 93 Facial 30 09/07/16 04:00 30 09/07/16 04:00 97.0 82 23 128/78 92 Bi-pap 30 09/07/16 04:00 80 09/07/16 03:33 84 23 94 Facial 30 09/07/16 01:54 87 28 93 Facial 30 09/07/16 01:01 99.0 09/07/16 00:00 88 09/07/16 00:00 30 09/06/16 23:00 30 09/06/16 23:00 99.0 93 23 127/55 96 Bi-pap 30 09/06/16 23:00 90 09/06/16 22:39 83 31 93 Facial 30 09/06/16 22:38 96.8 96 14 126/70 97 15.0 30 09/06/16 22:29 96.8 96 14 126/70 97 15.0 30 09/06/16 22:25 96.8 91 14 09/06/16 20:45 87 25 97 Facial 30 09/06/16 20:12 101 28 100 Bi-pap 30 09/06/16 20:00 97 35 97 Bi-pap 30 09/06/16 19:34 97.9 96 26 131/77 100 Bi-pap 15.0 30 09/06/16 19:14 91 28 100 Bi-pap 30 09/06/16 19:13 87 35 100 Bi-pap 30 09/06/16 19:10 89 35 98 Facial 30 09/06/16 19:00 30 09/06/16 18:05 98 24 Non-Rebreather 15.0 09/06/16 18:05 98 24 140/85 100 Non-Rebreather 09/06/16 17:55 97.9 96 20 159/80 99 Mechanical Ventilator 15.0 Intake and Output 09/06/16 09/07/16 19:00 07:00 Intake Total 900 ml Output Total 400 ml Balance 500 ml Intake Oral 150 ml IV Total 150 ml Blood Product 600 ml Output Urine Total 400 ml # Voids 1 # Bowel Movements 4 Laboratory Tests Test 09/06/16 18:20 09/07/16 01:00 09/07/16 06:20 White Blood Count 7.2 K/UL (4.8-10.8) 6.0 K/UL (4.8-10.8) Red Blood Count 2.64 M/UL (4.20-5.40) L 2.96 M/UL (4.20-5.40) L Hemoglobin 7.9 G/DL (12.0-16.0) L 8.6 G/DL (12.0-16.0) L Hematocrit 25.8 % (37.0-47.0) L 28.0 % (37.0-47.0) L Mean Corpuscular Volume 98 FL (80-99) 94 FL (80-99) Mean Corpuscular Hemoglobin 29.8 PG (27.0-31.0) 28.9 PG (27.0-31.0) Mean Corpuscular Hemoglobin Concent 30.5 G/DL (32.0-36.0) L 30.7 G/DL (32.0-36.0) L Red Cell Distribution Width 14.2 % (11.6-14.8) 15.1 % (11.6-14.8) H Platelet Count 163 K/UL (150-450) 156 K/UL (150-450) Mean Platelet Volume 6.0 FL (6.5-10.1) L 5.5 FL (6.5-10.1) L Neutrophils (%) (Auto) % (45.0-75.0) 72.8 % (45.0-75.0) Lymphocytes (%) (Auto) % (20.0-45.0) 14.9 % (20.0-45.0) L Monocytes (%) (Auto) % (1.0-10.0) 8.5 % (1.0-10.0) Eosinophils (%) (Auto) % (0.0-3.0) 2.9 % (0.0-3.0) Basophils (%) (Auto) % (0.0-2.0) 1.0 % (0.0-2.0) Differential Total Cells Counted 100 100 Neutrophils % (Manual) 80 % (45-75) H 78 % (45-75) H Lymphocytes % (Manual) 7 % (20-45) L 13 % (20-45) L Monocytes % (Manual) 10 % (1-10) 5 % (1-10) Eosinophils % (Manual) 3 % (0-3) 3 % (0-3) Basophils % (Manual) 0 % (0-2) 1 % (0-2) Band Neutrophils 0 % (0-8) 0 % (0-8) Platelet Estimate Adequate Adequate Platelet Morphology Normal Normal Red Blood Cell Morphology Normal Sodium Level 141 mEQ/L (135-145) 144 mEQ/L (135-145) Potassium Level 5.8 mEQ/L (3.4-4.9) H 5.4 mEQ/L (3.4-4.9) H Chloride Level 93 mEQ/L (98-107) L 95 mEQ/L (98-107) L Carbon Dioxide Level 42 mEQ/L (20-30) *H 41 mEQ/L (20-30) *H Anion Gap 6 (5-15) 8 (5-15) Blood Urea Nitrogen 39 mg/dL (7-23) H 40 mg/dL (7-23) H Creatinine 2.1 mg/dL (0.5-0.9) H 2.0 mg/dL (0.5-0.9) H Estimat Glomerular Filtration Rate mL/min (>60) mL/min (>60) Glucose Level 140 mg/dL (74-106) H 106 mg/dL (74-106) Calcium Level 9.6 mg/dL (8.6-10.2) 9.4 mg/dL (8.6-10.2) Total Bilirubin 0.4 mg/dL (0.0-1.2) Aspartate Amino Transf (AST/SGOT) 17 U/L (5-40) Alanine Aminotransferase (ALT/SGPT) 6 U/L (3-33) Alkaline Phosphatase 66 U/L (35-104) Total Creatine Kinase 61 U/L (26-140) Creatine Kinase MB 1.6 ng/mL (< 3.8) Creatine Kinase MB Relative Index 2.6 Troponin I < 0.30 ng/mL (<=0.30) < 0.30 ng/mL (<=0.30) Pro-B-Type Natriuretic Peptide 8548 pg/mL (0-125) H Total Protein 7.6 g/dL (6.6-8.7) Albumin 3.9 g/dL (3.5-5.2) 3.4 g/dL (3.5-5.2) L Globulin 3.7 g/dL Albumin/Globulin Ratio 1.0 (1.0-2.7) Stool Occult Blood Positive (NEGATIVE) Hypochromasia 1+ Anisocytosis 1+ Stomatocytes 1+ Erythrocyte Sedimentation Rate 82 MM/HR (0-30) H Reticulocyte Count 1.0 % (0.0-2.0) Prothrombin Time 12.6 SEC (9.30-11.50) H Prothromb Time International Ratio 1.2 (0.9-1.1) H Activated Partial Thromboplast Time 26 SEC (23-33) Phosphorus Level 4.6 mg/dL (2.5-4.8) Iron Level 14 ug/dL (37-145) L Total Iron Binding Capacity 30 ug/dL (250-400) L Percent Iron Saturation 47 % (15-50) Unsaturated Iron Binding < 16 ug/dL (112-346) L Lactate Dehydrogenase 217 U/L (135-230) Carcinoembryonic Antigen 0.5 ng/mL Vitamin B12 Level 160 pg/mL (211-946) L Folate Pending Height (Feet): 5 Height (Inches): 4.00 Weight (Pounds): 302 Medications Current Medications Medications (Trade) Dose Ordered Sig/Kalyn Route PRN Reason Start Time Stop Time Status Last Admin Dose Admin Acetaminophen (Tylenol) 650 mg Q4H PRN ORAL Fever 09/06/16 22:30 10/06/16 22:29 Albuterol/ Ipratropium (DuoNeb 0.5-3(2.5)mg/3ml) 3 ml Q4H PRN HHN Shortness of Breath 09/06/16 22:30 09/11/16 22:29 Aztreonam/Sodium Chloride (Azactam/Sodium Chloride) 50 ml @ 100 mls/hr Q8HR IVPB 09/07/16 07:30 09/14/16 07:29 09/07/16 08:07 Dextrose (Dextrose 50%) STAT PRN IV Hypoglycemia 09/06/16 22:30 10/06/16 22:29 Furosemide (Lasix) 40 mg EVERY 8 HOURS IV 09/06/16 23:00 10/06/16 22:59 09/07/16 06:13 Gabapentin (Neurontin) 600 mg DAILY ORAL 09/07/16 09:00 10/07/16 08:59 Ondansetron HCl (Zofran) 4 mg Q6H PRN IVP Nausea & Vomiting 09/06/16 22:30 10/06/16 22:29 Pantoprazole 40 mg 40 mg EVERY 12 HOURS IVP 09/07/16 06:00 10/07/16 05:59 09/07/16 06:13 Polyethylene Glycol (Miralax) 17 gm DAILYPRN PRN ORAL Constipation 09/06/16 22:30 10/06/16 22:29 Pravastatin Sodium (Pravachol) 20 mg BEDTIME ORAL 09/07/16 21:00 10/07/16 20:59 Temazepam (Restoril) 15 mg HSPRN PRN ORAL Insomnia 09/06/16 22:30 09/13/16 22:29 Assessment/Plan Problem List: (1) Acute respiratory failure ICD Codes: J96.00 - Acute respiratory failure, unspecified whether with hypoxia or hypercapnia SNOMED: 35058458 (2) CKD (chronic kidney disease) ICD Codes: N18.9 - Chronic kidney disease, unspecified SNOMED: 191300338 Qualifiers: Qualified Codes: N18.9 - Chronic kidney disease, unspecified (3) Hyperkalemia ICD Codes: E87.5 - Hyperkalemia SNOMED: 07124474 (4) COPD (chronic obstructive pulmonary disease) ICD Codes: J44.9 - Chronic obstructive pulmonary disease, unspecified SNOMED: 15596641 Qualifiers: Qualified Codes: J44.9 - Chronic obstructive pulmonary disease, unspecified (5) Anemia ICD Codes: D64.9 - Anemia, unspecified SNOMED: 584641189 Qualifiers: Qualified Codes: D64.9 - Anemia, unspecified (6) MINA (obstructive sleep apnea) ICD Codes: G47.33 - Obstructive sleep apnea (adult) (pediatric) SNOMED: 58397120 Assessment/Plan titrate bipap, fio2 respiratry treatment GI evaluation H2 blockers prbc prn renal evaluation, renal US, Kayexalate, with D50 and insuline. ARASH MIRANDA Sep 07, 2016 11:57
[2016-09-07] MEDS ORDERED: Sodium Polystyrene Sulfonate 15gm Powder ORAL ONE (12:00)
[2016-09-07 12:19] VITALS: BP 114/72
--- NOTE | 2016-09-07 12:36 | Cardiology Progress Note ---
Assessment/Plan Assessment/Plan gib anemia chronic hgb 8-9 (now post 2 unit of prbc) cri (cr2.1-2.3 baseline ) diastolic fialure pulm htn perm afib sildenifil for no w diuretics as bp allow / needed [id number] Objective Last 24 Hour Vital Signs Date Time Temp Pulse Resp B/P Pulse Ox O2 Delivery O2 Flow Rate FiO2 09/07/16 12:21 35.0 09/07/16 12:19 96.3 86 20 114/72 92 Simple Mask 86 09/07/16 10:51 80 16 94 Facial 35 09/07/16 08:38 80 16 94 Facial 35 09/07/16 08:15 96.8 91 15 107/60 94 Bi-pap 35 09/07/16 08:00 84 09/07/16 08:00 35 09/07/16 06:33 84 16 92 Facial 30 09/07/16 05:00 81 28 93 Facial 30 09/07/16 04:00 30 09/07/16 04:00 97.0 82 23 128/78 92 Bi-pap 30 09/07/16 04:00 80 09/07/16 03:33 84 23 94 Facial 30 09/07/16 01:54 87 28 93 Facial 30 09/07/16 01:01 99.0 09/07/16 00:00 88 09/07/16 00:00 30 09/06/16 23:00 30 09/06/16 23:00 99.0 93 23 127/55 96 Bi-pap 30 09/06/16 23:00 90 09/06/16 22:39 83 31 93 Facial 30 09/06/16 22:38 96.8 96 14 126/70 97 15.0 30 09/06/16 22:29 96.8 96 14 126/70 97 15.0 30 09/06/16 22:25 96.8 91 14 09/06/16 20:45 87 25 97 Facial 30 09/06/16 20:12 101 28 100 Bi-pap 30 09/06/16 20:00 97 35 97 Bi-pap 30 09/06/16 19:34 97.9 96 26 131/77 100 Bi-pap 15.0 30 09/06/16 19:14 91 28 100 Bi-pap 30 09/06/16 19:13 87 35 100 Bi-pap 30 09/06/16 19:10 89 35 98 Facial 30 09/06/16 19:00 30 09/06/16 18:05 98 24 Non-Rebreather 15.0 09/06/16 18:05 98 24 140/85 100 Non-Rebreather 09/06/16 17:55 97.9 96 20 159/80 99 Mechanical Ventilator 15.0 Intake and Output 09/06/16 09/07/16 19:00 07:00 Intake Total 900 ml Output Total 400 ml Balance 500 ml Intake Oral 150 ml IV Total 150 ml Blood Product 600 ml Output Urine Total 400 ml # Voids 1 # Bowel Movements 4 Laboratory Tests Test 09/06/16 18:20 09/07/16 01:00 09/07/16 06:20 White Blood Count 7.2 K/UL (4.8-10.8) 6.0 K/UL (4.8-10.8) Red Blood Count 2.64 M/UL (4.20-5.40) L 2.96 M/UL (4.20-5.40) L Hemoglobin 7.9 G/DL (12.0-16.0) L 8.6 G/DL (12.0-16.0) L Hematocrit 25.8 % (37.0-47.0) L 28.0 % (37.0-47.0) L Mean Corpuscular Volume 98 FL (80-99) 94 FL (80-99) Mean Corpuscular Hemoglobin 29.8 PG (27.0-31.0) 28.9 PG (27.0-31.0) Mean Corpuscular Hemoglobin Concent 30.5 G/DL (32.0-36.0) L 30.7 G/DL (32.0-36.0) L Red Cell Distribution Width 14.2 % (11.6-14.8) 15.1 % (11.6-14.8) H Platelet Count 163 K/UL (150-450) 156 K/UL (150-450) Mean Platelet Volume 6.0 FL (6.5-10.1) L 5.5 FL (6.5-10.1) L Neutrophils (%) (Auto) % (45.0-75.0) 72.8 % (45.0-75.0) Lymphocytes (%) (Auto) % (20.0-45.0) 14.9 % (20.0-45.0) L Monocytes (%) (Auto) % (1.0-10.0) 8.5 % (1.0-10.0) Eosinophils (%) (Auto) % (0.0-3.0) 2.9 % (0.0-3.0) Basophils (%) (Auto) % (0.0-2.0) 1.0 % (0.0-2.0) Differential Total Cells Counted 100 100 Neutrophils % (Manual) 80 % (45-75) H 78 % (45-75) H Lymphocytes % (Manual) 7 % (20-45) L 13 % (20-45) L Monocytes % (Manual) 10 % (1-10) 5 % (1-10) Eosinophils % (Manual) 3 % (0-3) 3 % (0-3) Basophils % (Manual) 0 % (0-2) 1 % (0-2) Band Neutrophils 0 % (0-8) 0 % (0-8) Platelet Estimate Adequate Adequate Platelet Morphology Normal Normal Red Blood Cell Morphology Normal Sodium Level 141 mEQ/L (135-145) 144 mEQ/L (135-145) Potassium Level 5.8 mEQ/L (3.4-4.9) H 5.4 mEQ/L (3.4-4.9) H Chloride Level 93 mEQ/L (98-107) L 95 mEQ/L (98-107) L Carbon Dioxide Level 42 mEQ/L (20-30) *H 41 mEQ/L (20-30) *H Anion Gap 6 (5-15) 8 (5-15) Blood Urea Nitrogen 39 mg/dL (7-23) H 40 mg/dL (7-23) H Creatinine 2.1 mg/dL (0.5-0.9) H 2.0 mg/dL (0.5-0.9) H Estimat Glomerular Filtration Rate mL/min (>60) mL/min (>60) Glucose Level 140 mg/dL (74-106) H 106 mg/dL (74-106) Calcium Level 9.6 mg/dL (8.6-10.2) 9.4 mg/dL (8.6-10.2) Total Bilirubin 0.4 mg/dL (0.0-1.2) Aspartate Amino Transf (AST/SGOT) 17 U/L (5-40) Alanine Aminotransferase (ALT/SGPT) 6 U/L (3-33) Alkaline Phosphatase 66 U/L (35-104) Total Creatine Kinase 61 U/L (26-140) Creatine Kinase MB 1.6 ng/mL (< 3.8) Creatine Kinase MB Relative Index 2.6 Troponin I < 0.30 ng/mL (<=0.30) < 0.30 ng/mL (<=0.30) Pro-B-Type Natriuretic Peptide 8548 pg/mL (0-125) H Total Protein 7.6 g/dL (6.6-8.7) Albumin 3.9 g/dL (3.5-5.2) 3.4 g/dL (3.5-5.2) L Globulin 3.7 g/dL Albumin/Globulin Ratio 1.0 (1.0-2.7) Stool Occult Blood Positive (NEGATIVE) Hypochromasia 1+ Anisocytosis 1+ Stomatocytes 1+ Erythrocyte Sedimentation Rate 82 MM/HR (0-30) H Reticulocyte Count 1.0 % (0.0-2.0) Prothrombin Time 12.6 SEC (9.30-11.50) H Prothromb Time International Ratio 1.2 (0.9-1.1) H Activated Partial Thromboplast Time 26 SEC (23-33) Phosphorus Level 4.6 mg/dL (2.5-4.8) Iron Level 14 ug/dL (37-145) L Total Iron Binding Capacity 30 ug/dL (250-400) L Percent Iron Saturation 47 % (15-50) Unsaturated Iron Binding < 16 ug/dL (112-346) L Lactate Dehydrogenase 217 U/L (135-230) Carcinoembryonic Antigen 0.5 ng/mL Vitamin B12 Level 160 pg/mL (211-946) L Folate Pending BRIANA TELLES Sep 07, 2016 12:36
--- NOTE | 2016-09-07 12:58 | History & Physical ---
Angeline Swenson NP 09/07/16 1258: History and Physical History & Physicial JOB# [id number] Manny Nolan MD 09/07/16 6024: History and Physical History & Physicial The patient was seen and examined at bedside and all new and available data was reviewed in the patients chart. I agree with the above findings, impression and plan. (Patient seen earlier today. Signature stamp does not reflect patient encounter time.). -MD Leela Cardona Jacqueline Robles NP Sep 07, 2016 12:58 Manny Nolan MD Sep 07, 2016 19:44
--- NOTE | 2016-09-07 13:53 | Diagnostic Imaging Report ---
Indications: Elevated renal function tests Technique: Transabdominal real-time grayscale and duplex Doppler imaging of the kidneys, retroperitoneum, and urinary bladder was performed Findings: Comparison: 04/06/2016 Patient body habitus attenuates sonographic beam penetration, limiting evaluation. Right kidney measures 9.6 cm in length. Normal contour, echotexture, cortical thickness. No stones, other focal lesions, hydronephrosis, or obvious perinephric abnormalities. Left kidney measures 9.7 cm in length. Normal contour, echotexture, cortical thickness. No stones, other focal lesions, hydronephrosis, or obvious perinephric abnormalities. The intrahepatic portion of inferior vena cava is patent, distended to 3.7 cm diameter. The urinary bladder is collapsed around a Rowland catheter. IMPRESSION: Limited evaluation due to technical factors described, demonstrating no obvious renal abnormality Distended IVC suggests elevated right heart pressure Urinary bladder collapsed, contains Rowland, no significant change from previous exam
--- NOTE | 2016-09-07 14:00 | Consultation ---
DATE OF CONSULTATION: 09/06/2016 GASTROENTEROLOGY CONSULTATION REPORT CHIEF COMPLAINT: I was asked to see this patient by Dr. Manyn Nolan for evaluation of upper gastrointestinal bleeding. HISTORY OF PRESENT ILLNESS: The patient is a pleasant unfortunate 75-year-old white woman with mornib obesity and chronic respiratory failure as well as other medical problems as outlined below, who comes into the hospital with reported history of coffee-ground emesis. The patient herself is unable to provide much more history and in fact, does not know why she was in the emergency room. There is no family at bedside. Some medical records available, but they basically pertaining to her prior medical history. The patient does have a history of severe obstructive sleep apnea, on BiPAP mask. She has chronic hypercapnic respiratory failure as well as atrial fibrillation, on anticoagulation. The patient has had multiple admissions to [facility]. In 2014, underwent an endoscopy and colonoscopy. 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 The colonoscopy showed mild diverticulosis. The patient does have a degree of anemia, but anemia is also a previously known problem in this patient. She has also had a history of heme-positive stools, but given her overall poor cardiac and pulmonary status, she has been followed conservatively. The patient denies any abdominal pain at this time. PAST MEDICAL HISTORY: History of diabetes, morbid obesity, hypertension, chronic heart failure, pulmonary hypertension, history of MRSA colonization and VRE colonization, anemia, COPD, obstructive sleep apnea, breast cancer, hypercapnic respiratory failure, requiring BiPAP use, chronic lower extremity edema with history of lower extremity cellulitis, bedbound state, history of heme-positive stools, and atrial fibrillation. FAMILY HISTORY: Noncontributory. SOCIAL HISTORY: The patient does not smoke or drink alcohol at this time. MEDICATIONS: See chart list for details. ALLERGIES: Penicillin and morphine. REVIEW OF SYSTEMS: Otherwise negative. PHYSICAL EXAMINATION: GENERAL: Debilitated obese white woman, seen with a BiPAP mask in the emergency room. The patient appeared somewhat lethargic. HEENT: Normocephalic and atraumatic. BiPAP mask was in use. NECK: Supple. CHEST: Reveals scattered rhonchi. CARDIOVASCULAR: Regular rate and irregular rhythm. ABDOMEN: Obese and nontender. EXTREMITIES: Revealed chronic edema. LABORATORY DATA: Noted. ASSESSMENT: This patient presents with episode of coffee-ground emesis in the setting of profound respiratory and cardiac debilitation. The patient has severe hypercapnic respiratory failure and her chemistry panel showed significant degree of metabolic alkalosis suggesting that she does indeed have severe respiratory acidosis. As such, she is at high risk for anesthesia and the airway compromise during endoscopy and is not a candidate for this procedure at this time. I would manage her conservatively at this time. Proton pump inhibitor can be given intravenously twice daily to reduce any chance of reflux. Anticoagulation is the best option if feasible from medical standpoint. Although the patient can receive subcutaneous heparin for deep vein thrombosis prophylaxis, she should be transfused as needed and I would follow her blood count closely. Should she have evidence of ongoing significant bleeding, then she would likely require intubation for endoscopic intervention, however, that would risk possible degree of chronic need for ventilatory support. The patient's condition is guarded and she should be observed closely. RECOMMENDATIONS: 1. NPO except medications. 2. Intravenous proton pump inhibitor. 3. Hold systemic anticoagulation if feasible from medical standpoint. 4. Serial CBC. 5. Transfuse as needed. Thank you for asking me to participate in the care of this patient. Mary Rodriguez M.D. DR: AURELIO JOB#: [id number] CC: LOBO
[2016-09-07 14:51] LABS: APPEARANCE,URINE CLOUDY; KETONES,URINE NEGATIVE (NEGATIVE); LEUKOCYTE ESTERASE ,URINE 3+ (NEGATIVE); NITRITE,URINE NEGATIVE (NEGATIVE); PH,URINE 5 (4.5-8.0); PROTEIN,URINE 2+ (NEGATIVE); UROBILINOGEN,URINE NORMAL MG/DL (0.0-1.0)
[2016-09-07] MEDS: Revatio 20mg tab ORAL SCH ×2 (14:56→21:12)
[2016-09-07] MEDS: Vitamin B12 1000mcg/ml Inj SUBQ SCH (14:57)
[2016-09-07 15:16] LABS: BACTERIA,URINE MANY /HPF; SQUAMOUS EPITHELIAL CELL,UR FEW /LPF (NONE/OCC); WBC,URINE 40-60 /HPF (0 - 2)
[2016-09-07 16:29] VITALS: BP 118/65
--- NOTE | 2016-09-07 16:29 | Consultation ---
Consult Note Consult Note Asked to eval for high Cr 75YOF BIBEMS from SNF with hypoxia per EMS. also concern for coffee ground emesis, nausea. Patient not sure why she is here. No family members bedside. No other info from EMS. PMhx: Morbid obesity, respir failure, CHF, pulm HTN, left leg cellulitis, anemia Admission 04/06-04/27 Had PNA RLL, intubated Blood Cx negative at that time Allergies: AMOXICILLIN (Verified Allergy, Mild, RASH, 12/25/09) MORPHINE (Unverified Allergy, Unknown, 09/06/16) PENICILLINS (Unverified Allergy, Unknown, 04/06/16) Past Medical History: other - see my HPI Past Surgical History: unable to obtain Past Medical History: No History, Except For Hx Cardiac Problems: Yes - CHRONIC COMBINED SYSTOLIC AND DIASTOLIC HEART FAILURE Hx Hypertension: Yes - CHRONIA AFIB, ANEMIA, Hx COPD: Yes Hx Diabetes: Yes Hx Cancer: Yes - Breast CA Hx Gastrointestinal Problems: Yes - GERD, DIFFICULTY WALKING Hx Neurological Problems: Yes - CELLULITIS OF LOWER LIMB, MUSCLE WEAKNESS examined- Data reviewed Assessment/Plan Status: CKD- High K Obese COPD CHF, Diastolic MINA UTI Anemia GI Bleed, GI bleeding At Fib Pulm HTN Low B12 Plan; Optimize cardiac status- Monitor renal parameters and lytes- Avoid nephrotoxics B12 SQ- PO Folate COURTNEY LOPEZ Sep 07, 2016 16:29
--- NOTE | 2016-09-07 16:45 | Consultation ---
DATE OF CONSULTATION: 09/07/2016 CARDIOLOGY CONSULTATION CONSULTING PHYSICIAN: Faizan Peralta M.D. REFERRING PHYSICIAN: Elidia Rene M.D. REASON FOR REFERRAL: Atrial fibrillation, diastolic heart failure, and gastrointestinal bleed. HISTORY OF PRESENT ILLNESS: This is an elderly female, who is the patient of Dr. oNlan. The patient has previously been seen at [facility] before by . Information is obtained from the review of the patient's chart from [facility] as well as review of the present chart as well as my discussion with the patient. The patient was apparently noted to have some coffee-ground emesis and was transferred to the emergency room at [facility]. During that episode, she had a saturation in the low in the 80 to 90 range on a nasal cannula and was noted to be speaking in complete sentences. Her ankles are more swollen and she was brought to the emergency room. Her blood pressure when she was fine by the paramedics as they documented was 160/90 and saturation initially 99% documented by the paramedics. She does not have any chest pain. She has chronic shortness of breath. She is on nasal cannula at the convalescent facility. She says there is no PND, uses one pillow. There is no palpitation. No dizziness or lightheadedness. She does ambulate some she says. PAST MEDICAL HISTORY: According to the [facility] records is positive for history of chronic diastolic heart failure, pulmonary hypertension, permanent atrial fibrillation, systemic hypertension, diabetes mellitus, chronic kidney disease, abnormal cardiac enzymes, anemia, acute on chronic hypercapnic respiratory failure, cellulitis, CO2 narcosis, diabetes mellitus, systemic hypertension, nonoliguric, acute renal insufficiency superimposed on chronic kidney disease, requiring multiple load nephrosclerosis, and cardiorenal syndrome, possible diabetic nephropathy have been the cause is. ALLERGIES: She denies any allergies to medications. SOCIAL HISTORY: She used to smoke for 34 years ago. No alcohol. No drugs. She resides in a convalescent facility. REVIEW OF SYSTEMS: Gastrointestinal: She did have a bout of nausea and vomiting as mentioned. No bloody stools or black tarry stools. Genitourinary: Negative. Pulmonary: Positive for coughing. Constitutional: No fever, chills, or night sweats. Neurologic: Negative. PHYSICAL EXAMINATION: GENERAL: Shows to be morbidly obese elderly female, on the face mask. NECK: Supple. LUNGS: Show some crackles at the bases and some rhonchi. CARDIAC: Appears to be regular rate. There is a systolic ejection murmur as well as a holosystolic regurgitant murmur. ABDOMEN: Soft and obese. Positive bowel sounds. EXTREMITIES: A 2+ edema. NEUROLOGICAL: She is awake, alert, responsive, and in no respiratory distress. LABORATORY VALUES: Her white count is 16, hemoglobin 8.6, and platelet count of 156,000 and in direct comparison with her prior CBC levels at [facility] from 07/05/2016, her hemoglobin was in the 8.5 to 9 range usually previously. Her sodium is 144, potassium 5.4, chloride 95, bicarbonate of 41, BUN of 40, creatinine of 2.0, and glucose of 108 and in direct comparison with her prior metabolic panel from [facility], her CO2 at this time is much higher than the usual values of 27. Her BUN and creatinine are in the 30s and 1 to 2.3 chronically. Vitamin B12 level is decreased at 160. Troponin two sets are negative. LDH of 217. Iron is 14 with oxygen saturation of 47 and her ProBNP was 8500. An echocardiogram has been performed showing ejection fraction of 55%, severe right atrial enlargement, right ventricular enlargement, IVC dilated, moderate mitral regurgitation, severe tricuspid regurgitation with pulmonary artery systolic pressure in the 90s consistent with severe pulmonary hypertension, aortic valve sclerosis with adequate cusp excursion. Her EKG shows low-voltage QRS complexes with what appears to be atrial fibrillation. Ventricular response appears to be controlled. There is a right axis deviation. ASSESSMENT: 1. Coffee-ground emesis. 2. Anemia, worsened, chronic. 3. Gastrointestinal bleed. 4. Permanent atrial fibrillation, on anticoagulation with Eliquis. 5. History of pulmonary hypertension of significant degree, treated with sildenafil. 6. Systemic hypertension. 7. Chronic renal insufficiency. 8. Diabetes mellitus. PLAN: Dr. Rene, this patient was seen in cardiac consultation. The patient's blood pressure is in between 107/62 and 159/80. She is on sildenafil to be continued for her pulmonary hypertension. Withhold parameters. Her anemia seems to be at baseline right now, although she received 2 units of packed red cells to get into this level. When she should be back on her sildenafil of course the anticoagulation will be discontinued with the use of Eliquis at that time and gastrointestinal evaluation is in progress. Other medications should be continued including her Lasix, Zantac, lactulose, Protonix, vitamin B12 injections, pravastatin, and other medications that she was previously using. Faizan Peralta M.D. DR: MARILOU JOB#: [id number] CC:
--- NOTE | 2016-09-07 17:15 | HX and Phyl Repo 2 Sig ---
DATE OF ADMISSION: 09/06/2016 HISTORY OF PRESENT ILLNESS: The patient is a 75-year-old female who is a resident of [facility] was transferred to [facility] ER for evaluation of coffee-grounds emesis. She has past medical history significant for chronic respiratory failure, chronic obstructive pulmonary disease, morbid obesity, congestive heart failure, diabetes mellitus, atrial fibrillation on Eliquis at group home. Apparently staff from the group home noted the patient had coffee-ground vomiting and then after the patient desaturated. She was placed on 100% nonrebreather mask and was placed on NPO. She was then advised to be transferred to [facility] for further evaluation. On evaluation at ED, laboratories showed anemia, hemoglobin was 7.9, hematocrit was 25.8. Potassium was elevated to 5.8, creatinine of 2.1. She was given albuterol, Kayexalate, insulin and dextrose, and was started on BiPAP. Chest x-ray showed bilateral congestive changes with development of left lung atelectasis. BNP 07271. She was then admitted to [facility] for anemia secondary to gastrointestinal bleed, congestive heart failure, acute kidney injury, acute on chronic respiratory failure, and atrial fibrillation. ALLERGIES: The patient is allergic to amoxicillin and penicillin. CODE STATUS: Full code. PAST MEDICAL HISTORY: As stated above. SOCIAL HISTORY: The patient has domestic partner, Mr. Sean Zavala. REVIEW OF SYSTEMS: Constitutional: Denies fever or chills. HEENT: Denies eye pain. No congestion. No ear pain. No dizziness. Cardiovascular: Denies palpitations. Denies chest pain. Respiratory: Denies shortness of breath. Gastrointestinal: Denies abdominal pain but positive for coffee-ground emesis. Genitourinary: Denies dysuria. Hematologic: Positive for easy bleeding and bruising. PHYSICAL EXAMINATION: VITAL SIGNS: At ED, blood pressure was 159/80, pulse 96, respiratory rate 20, O2 saturation 100% on BiPAP. GENERAL APPEARANCE: The patient is awake, alert, oriented, but forgetful. The patient is morbidly obese and bedbound. RESPIRATORY: Lungs are clear but decreased breath sounds on both lung chirinos. CARDIOVASCULAR: S1 and S2. Irregularly irregular. ABDOMEN: Soft. Positive bowel sounds. Nondistended. GENITOURINARY: Indwelling Rowland catheter. EXTREMITIES: No clubbing, no cyanosis, but both lower extremity are edematous. NEUROLOGIC: The patient is awake, alert, and responsive. Able to move all extremities UE 4/5. DIAGNOSTIC DATA: WBC 7, hemoglobin 7.9, hematocrit 25.8, and platelet 163,000. Sodium 141, potassium 5.8, carbon dioxide 42, anion gap 6, BUN 39, creatinine 2.1, glucose 140. BNP is 8548. INR 1.2. Initial chest x-ray done showed bilateral congestive changes with developing left lung atelectasis. ASSESSMENT: 1. Acute respiratory failure requiring BiPAP. 2. Acute gastrointestinal bleed with acute anemia requiring blood transfusion. 3. Acute kidney injury on chronic kidney disease. 4. Hyperkalemia. 5. Acute diastolic ongestive heart failure. 6. Atrial fibrillation. 7. Pulmonary hypertension. 8. Morbid obesity. 9. Chronic obstructive pulmonary disease. 10. Chronic obstructive sleep apnea. PLAN: Admit to [facility], was initially placed on NPO. The patient was given two units of blood transfusion yesterday, hemoglobin level today 8.6, there has been no further episodes of hematemesis. Was seen by GI, patient was ordered clear liquid diet, continue with proton pump inhibitors intravenous push q.12 hours, hold Eliquis for now. SCDs for DVT prophylaxis. Monitor renal function. Dr. Rene, Pulmonary consult, Dr. Peralta, Cardiology, and Dr. Rodriguez, GI, Dr. Cummings nephrology consult. Manny Nolan M.D. Angeline Swenson N.P. DR: Lore JOB#: [id number] CC: LOBO
[2016-09-07] MEDS: Heparin 5000 units/ml inj SUBQ SCH (20:15)
[2016-09-07 20:16] VITALS: BP 131/74
--- NOTE | 2016-09-07 22:54 | General Progress Note ---
Assessment/Plan Assessment/Plan Assessment - UGIB - likely GERD, patient declines EGD at this time - Anemia-Last EGD/Colon 05/2014 (duodenal AVM- cauterized, mild diverticulosis) - Chronic hypercapnic resp failure - Hyperkalemia - Renal failure - Morbid obesity - CHF - atrial fibrillation - guarded Recommendations - no plans for endoscopy at this time - Rx empirically with H2B - Monitor H&H - Transfuse PRN - Elevate HOB - Hold systemic anticoagulation temporarily (SQ hep prophylaxis OK), if OK from medical standpoint - push PO Subjective Allergies: Coded Allergies: AMOXICILLIN (Verified Allergy, Mild, RASH, 12/25/09) MORPHINE (Unverified Allergy, Unknown, 09/06/16) PENICILLINS (Unverified Allergy, Unknown, 04/06/16) Subjective much better today more awake off BIPAP --> on NC O2 d/w patient re CG emesis d/w pt re endoscopy - at this point refuses, believes benefits do not justify risks Objective Last 24 Hour Vital Signs Date Time Temp Pulse Resp B/P Pulse Ox O2 Delivery O2 Flow Rate FiO2 09/07/16 20:16 97.7 87 20 131/74 92 Nasal Cannula 5.0 09/07/16 20:00 88 09/07/16 19:00 94 Nasal Cannula 5.0 40 09/07/16 19:00 82 20 94 5.0 09/07/16 19:00 Nasal Cannula 5.0 40 09/07/16 16:50 75 16 96 09/07/16 16:29 96.3 89 20 118/65 93 Simple Mask 5.0 89 09/07/16 16:00 6.0 09/07/16 16:00 89 09/07/16 15:15 81 16 95 09/07/16 12:30 75 16 92 09/07/16 12:21 35.0 09/07/16 12:19 96.3 86 20 114/72 92 Simple Mask 86 09/07/16 12:00 87 09/07/16 10:51 80 16 94 Facial 35 09/07/16 08:38 80 16 94 Facial 35 09/07/16 08:15 96.8 91 15 107/60 94 Bi-pap 35 09/07/16 08:00 84 09/07/16 08:00 35 09/07/16 06:33 84 16 92 Facial 30 09/07/16 05:00 81 28 93 Facial 30 09/07/16 04:00 30 09/07/16 04:00 97.0 82 23 128/78 92 Bi-pap 30 09/07/16 04:00 80 09/07/16 03:33 84 23 94 Facial 30 09/07/16 01:54 87 28 93 Facial 30 09/07/16 01:01 99.0 09/07/16 00:00 88 09/07/16 00:00 30 09/06/16 23:00 30 09/06/16 23:00 99.0 93 23 127/55 96 Bi-pap 30 09/06/16 23:00 90 Intake and Output 09/06/16 09/07/16 19:00 07:00 Intake Total 900 ml Output Total 400 ml Balance 500 ml Intake Oral 150 ml IV Total 150 ml Blood Product 600 ml Output Urine Total 400 ml # Voids 1 # Bowel Movements 4 Laboratory Tests 09/07/16 01:00: Stool Occult Blood Positive 09/07/16 06:20: White Blood Count 6.0, Red Blood Count 2.96L, Hemoglobin 8.6L, Hematocrit 28.0L , Mean Corpuscular Volume 94, Mean Corpuscular Hemoglobin 28.9, Mean Corpuscular Hemoglobin Concent 30.7L, Red Cell Distribution Width 15.1H, Platelet Count 156, Mean Platelet Volume 5.5L, Neutrophils (%) (Auto) 72.8, Lymphocytes (%) (Auto) 14.9L, Monocytes (%) (Auto) 8.5, Eosinophils (%) (Auto) 2.9, Basophils (%) (Auto) 1.0, Differential Total Cells Counted 100, Neutrophils % (Manual) 78H, Lymphocytes % (Manual) 13L, Monocytes % (Manual) 5, Eosinophils % (Manual) 3, Basophils % (Manual) 1, Band Neutrophils 0, Platelet Estimate Adequate, Platelet Morphology Normal, Hypochromasia 1+, Anisocytosis 1+ , Stomatocytes 1+, Erythrocyte Sedimentation Rate 82H, Reticulocyte Count 1.0, Prothrombin Time 12.6H, Prothromb Time International Ratio 1.2H, Activated Partial Thromboplast Time 26, Sodium Level 144, Potassium Level 5.4H, Chloride Level 95L, Carbon Dioxide Level 41*H, Anion Gap 8, Blood Urea Nitrogen 40H, Creatinine 2.0H, Estimat Glomerular Filtration Rate , Glucose Level 106, Calcium Level 9.4, Phosphorus Level 4.6, Iron Level 14L, Total Iron Binding Capacity 30L, Percent Iron Saturation 47, Unsaturated Iron Binding < 16L, Lactate Dehydrogenase 217, Troponin I < 0.30, Albumin 3.4L, Carcinoembryonic Antigen 0.5, Vitamin B12 Level 160L, Folate [Pending] 09/07/16 13:40: Urine Color Pale yellow, Urine Appearance Cloudy, Urine pH 5, Urine Specific Breese 1.010, Urine Protein 2+H, Urine Glucose (UA) Negative, Urine Ketones Negative, Urine Occult Blood 4+H, Urine Nitrite Negative, Urine Bilirubin Negative, Urine Urobilinogen Normal, Urine Leukocyte Esterase 3+H, Urine RBC 10- 15H, Urine WBC 40-60H, Urine Squamous Epithelial Cells Few, Urine Bacteria ManyH Height (Feet): 5 Height (Inches): 4.00 Weight (Pounds): 302 Objective Obese WW NCAT supple Coarse BS RR Abd soft NT ND, obese (+) edema Neuro - more awake and responsive BRETT DALE Sep 07, 2016 22:54
[2016-09-07 23:18] LABS: TROPONIN I < 0.30 ng/mL (<=0.30)
[2016-09-08] VITALS (7 sets, daily range): BP systolic 113–125; BP diastolic 64–76
[2016-09-08] MEDS: Revatio 20mg tab ORAL SCH ×3 (05:03→21:53)
[2016-09-08] MEDS: AZTREONAM IVPB SCH ×3 (05:04→22:55)
[2016-09-08] MEDS: NS IVPB SCH ×3 (05:04→22:55)
[2016-09-08 05:33] LABS: EOSINOPHILS % (AUTO) 2.9 % (0.0-3.0); MEAN CORPUSCULAR HEMOGLOBIN 27.9 PG (27.0-31.0); MEAN CORPUSCULAR HGB CONC 29.4 G/DL (32.0-36.0); MEAN CORPUSCULAR VOLUME 95 FL (80-99); MEAN PLATELET VOLUME 5.6 FL (6.5-10.1); NEUTROPHILS % (AUTO) 68.1 % (45.0-75.0); PLATELET COUNT 156 K/UL (150-450); RED BLOOD COUNT 3.13 M/UL (4.20-5.40); RED CELL DISTRIBUTION WIDTH 14.9 % (11.6-14.8); WHITE BLOOD COUNT 6.3 K/UL (4.8-10.8)
[2016-09-08 06:44] LABS: ALANINE AMINOTRANSFERASE 5 U/L (3-33); ALBUMIN/GLOBULIN RATIO 0.8 (1.0-2.7); ANION GAP 9 (5-15); ASPARTATE AMINO TRANSFERASE 15 U/L (5-40); CALCIUM 9.3 mg/dL (8.6-10.2); CARBON DIOXIDE 39 mEQ/L (20-30); CHLORIDE 94 mEQ/L (98-107); CHOLESTEROL 86 mg/dL (< 200); CHOLESTEROL/HDL RATIO 2.2 (3.3-4.4); CREATININE 2.1 mg/dL (0.5-0.9); HEMOLYSIS 2; LDL CHOLESTEROL (CALC.) 31 mg/dL (60-99); POTASSIUM 4.9 mEQ/L (3.4-4.9); SODIUM 142 mEQ/L (135-145); TOTAL PROTEIN 7.2 g/dL (6.6-8.7)
[2016-09-08 06:47] LABS: TROPONIN I < 0.30 ng/mL (<=0.30)
[2016-09-08 06:55] LABS: CRP QUANT 2.2 mg/dL (< 0.5); MAGNESIUM 2.2 mg/dL (1.7-2.5); PHOSPHORUS 5.2 mg/dL (2.5-4.8); URIC ACID 7.7 mg/dL (3.0-7.5)
[2016-09-08 07:14] LABS: HEMOGLOBIN A1C 4.8 % (< 6.0)
[2016-09-08 08:29] LABS: ALANINE AMINOTRANSFERASE 5 U/L (3-33); ALBUMIN/GLOBULIN RATIO 0.8 (1.0-2.7); ANION GAP 13 (5-15); ASPARTATE AMINO TRANSFERASE 16 U/L (5-40); CALCIUM 9.1 mg/dL (8.6-10.2); CARBON DIOXIDE 36 mEQ/L (20-30); CHLORIDE 94 mEQ/L (98-107); CREATININE 2.1 mg/dL (0.5-0.9); HEMOLYSIS 8; POTASSIUM 4.9 mEQ/L (3.4-4.9); SODIUM 143 mEQ/L (135-145); TOTAL PROTEIN 7.3 g/dL (6.6-8.7)
--- NOTE | 2016-09-08 08:33 | General Progress Note ---
Angeline Swenson REHAB AIDE 09/08/16 0833: Assessment/Plan Assessment/Plan ASSESSMENT: 1. Acute respiratory failure requiring BiPAP --Bipap on stand by -curerntly tolerating NC saturating well - Dr Anju llanos 2. Acute gastrointestinal bleed with acute anemia requiring blood transfusion. -s/p BT 2 units, H/H stable, no more episodes of hematemesis -diet was advanced by GI currently on soft diet tolerating diet - follow Dr Rodriguez recommendations 3. Acute kidney injury on chronic kidney disease. -stable, renal US noted - follow Dr Zamora recommendations 4. Hyperkalemia., resolved. 5. Acute diastolic ongestive heart failure. - on lasix - Dr Peralta cardio 6. Atrial fibrillation. - off eliquis for now 7. Pulmonary hypertension. - on sildanefil 8. Morbid obesity. 9. Chronic obstructive pulmonary disease. 10. Chronic obstructive sleep apnea. 11. UTI- start on cipro IV - urine culture in process -DC pichardo--start bladder training eventually DC pichardo jaylen PT/OT Discharge plan: patient may not be able to go back to SNF due to lack of available days only option would be DC home with HH-- Mr Zavala aware Discharge planning in 2-3 days, CM to contact Mr Zavala for hospital bed and DMEs transfer to telemetry Above findings and plans were discussed with Dr Camacho. Subjective Date patient seen: Sep 08, 2016 Time patient seen: 08:12 ROS Limited/Unobtainable: Yes Constitutional: Reports: no symptoms HEENT: Reports: no symptoms Cardiovascular: Reports: no symptoms Respiratory: Reports: SOB with excertion Gastrointestinal/Abdominal: Reports: blood in stool Genitourinary: Reports: no symptoms Neurologic/Psychiatric: Reports: no symptoms Endocrine: Reports: no symptoms Hematologic/Lymphatic: Reports: easy bleeding Allergies: Coded Allergies: AMOXICILLIN (Verified Allergy, Mild, RASH, 12/25/09) MORPHINE (Unverified Allergy, Unknown, 09/06/16) PENICILLINS (Unverified Allergy, Unknown, 04/06/16) Subjective she feels better, short of breath on exertion Objective Last 24 Hour Vital Signs Date Time Temp Pulse Resp B/P Pulse Ox O2 Delivery O2 Flow Rate FiO2 09/08/16 07:03 Nasal Cannula 5.0 40 09/08/16 07:02 91 Nasal Cannula 5.0 40 09/08/16 04:00 97.8 82 22 116/76 99 Nasal Cannula 5.0 09/08/16 04:00 6.0 09/08/16 04:00 83 09/08/16 00:49 97.9 86 20 113/64 98 Nasal Cannula 5.0 09/08/16 00:00 6.0 09/08/16 00:00 80 09/07/16 20:16 97.7 87 20 131/74 92 Nasal Cannula 5.0 09/07/16 20:00 6.0 09/07/16 20:00 88 09/07/16 19:00 94 Nasal Cannula 5.0 40 09/07/16 19:00 82 20 94 5.0 09/07/16 19:00 Nasal Cannula 5.0 40 09/07/16 16:50 75 16 96 09/07/16 16:29 96.3 89 20 118/65 93 Simple Mask 5.0 89 09/07/16 16:00 6.0 09/07/16 16:00 89 09/07/16 15:15 81 16 95 09/07/16 12:30 75 16 92 09/07/16 12:21 35.0 09/07/16 12:19 96.3 86 20 114/72 92 Simple Mask 86 09/07/16 12:00 87 09/07/16 10:51 80 16 94 Facial 35 09/07/16 08:38 80 16 94 Facial 35 09/07/16 08:15 96.8 91 15 107/60 94 Bi-pap 35 Intake and Output 09/07/16 09/08/16 19:00 07:00 Intake Total 1610 ml Output Total 220 ml 185 ml Balance 1390 ml -185 ml Intake Oral 1540 ml IV Total 50 ml Other 20 ml Output Urine Total 220 ml 185 ml Laboratory Tests 09/07/16 13:40: Urine Color Pale yellow, Urine Appearance Cloudy, Urine pH 5, Urine Specific [place] 1.010, Urine Protein 2+H, Urine Glucose (UA) Negative, Urine Ketones Negative, Urine Occult Blood 4+H, Urine Nitrite Negative, Urine Bilirubin Negative, Urine Urobilinogen Normal, Urine Leukocyte Esterase 3+H, Urine RBC 10- 15H, Urine WBC 40-60H, Urine Squamous Epithelial Cells Few, Urine Bacteria ManyH 09/07/16 22:30: Troponin I < 0.30 09/08/16 03:45: Troponin I < 0.30, White Blood Count 6.3, Red Blood Count 3.13L, Hemoglobin 8.7L , Hematocrit 29.6L, Mean Corpuscular Volume 95, Mean Corpuscular Hemoglobin 27.9 , Mean Corpuscular Hemoglobin Concent 29.4L, Red Cell Distribution Width 14.9H, Platelet Count 156, Mean Platelet Volume 5.6L, Neutrophils (%) (Auto) 68.1, Lymphocytes (%) (Auto) 18.0L, Monocytes (%) (Auto) 10.0, Eosinophils (%) (Auto) 2.9, Basophils (%) (Auto) 1.0, Sodium Level 142, Potassium Level 4.9, Chloride Level 94L, Carbon Dioxide Level 39H, Anion Gap 9, Blood Urea Nitrogen 40H, Creatinine 2.1H, Estimat Glomerular Filtration Rate , Glucose Level 99, Hemoglobin A1c 4.8, Uric Acid 7.7H, Calcium Level 9.3, Phosphorus Level 5.2H, Magnesium Level 2.2, Total Bilirubin 0.5, Gamma Glutamyl Transpeptidase 18, Aspartate Amino Transf (AST/SGOT) 15, Alanine Aminotransferase (ALT/SGPT) 5, Alkaline Phosphatase 63, Total Creatine Kinase 60, C-Reactive Protein, Quantitative 2.2H, Pro-B-Type Natriuretic Peptide 7776H, Total Protein 7.2, Albumin 3.3L, Globulin 3.9, Albumin/Globulin Ratio 0.8L, Triglycerides Level 77 , Cholesterol Level 86, LDL Cholesterol 31L, HDL Cholesterol 40, Cholesterol/ HDL Ratio 2.2L, Thyroid Stimulating Hormone (TSH) 2.930 Height (Feet): 5 Height (Inches): 4.00 Weight (Pounds): 302 General Appearance: alert, mild distress EENT: normal ENT inspection Neck: non-tender Cardiovascular: regularly irregular Respiratory/Chest: decreased breath sounds Abdomen: normal bowel sounds, soft Edema: 2+ Leg (L), 2+ Leg (R), 2+ Pedal (L), 2+ Pedal (R) Neurologic: alert, oriented x 3 Skin: warm/dry Objective awake alert and oriented Manny Camacho MD 09/08/16 1415: Subjective Allergies: Coded Allergies: AMOXICILLIN (Verified Allergy, Mild, RASH, 11/18/10) MORPHINE (Unverified Allergy, Unknown, 09/06/16) PENICILLINS (Unverified Allergy, Unknown, 04/06/16) Subjective The patient was seen and examined at bedside and all new and available data was reviewed in the patients chart. I agree with the above findings, impression and plan. (Patient seen earlier today. Signature stamp does not reflect patient encounter time.). -MD Leela Cardona Jacqueline Robles NP Sep 08, 2016 08:33 Manny Camacho MD Sep 08, 2016 14:15
--- NOTE | 2016-09-08 08:42 | Cardiology Report ---
APPROVED REPORT EXAM: Two-dimensional and M-mode echocardiogram with Doppler and color Doppler. INDICATION Left Ventricular Function M-Mode DIMENSIONS IVSd1.6 (0.7-1.1cm)Left Atrium (MM)3.7 (1.6-4.0cm) LVDd5.9 (3.5-5.6cm)Aortic Root2.5 (2.0-3.7cm) PWd0.8 (0.7-1.1cm)Aortic Cusp Exc.1.6 (1.5-2.0cm) LVDs4.9 (2.5-4.0cm) PWs1.4 cm Other Information Technically limited study due to body habitus. Mild left ventricular enlargement. Normal left ventricular systolic function and wall motion except flatenning of Septum suggestive of RV pressure overload Left ventricular ejection fraction estimated to be 60-65 %. Mild left ventricular hypertrophy. Trivial pericardial effusion. Severe right atrial enlargement. Significant right ventricular enlargement. Mild left atrial enlargement. Mild focal aortic valve sclerosis with adequate cusp excursion. Mildly thickened mitral valve leaflets with normal excursion. Mild mitral annulus and aortic root calcification. Normal pulmonic valve structure. Normal tricuspid valve structure. IVC dilated at 3.7 cm without physiologic collapse, estimated RAP is 15mmHg. Left ventricle D-shape pattern, suggestive of right ventricle volume overload. A color flow and spectral Doppler study was performed and revealed: Trace aortic regurgitation. Moderate eccentric mitral regurgitation. Left ventricular diastolic function could not be determined to A-Fib. Severe tricuspid regurgitation. Tricuspid systolic velocities suggests peak right ventricular systolic pressure of 94 mmHg, consistent with severe pulmonary hypertension. Mild pulmonic regurgitation present.
[2016-09-08] MEDS: Miralax 17gm pkt ORAL SCH (09:38)
[2016-09-08] MEDS: Pantoprazole Inj IVP SCH ×2 (09:38→21:52)
[2016-09-08] MEDS: Vitamin B12 1000mcg/ml Inj SUBQ SCH (09:43)
[2016-09-08] MEDS: Heparin 5000 units/ml inj SUBQ SCH ×2 (09:45→21:54)
[2016-09-08] MEDS ORDERED: Tubing IV Secondary IV ONE (11:26)
[2016-09-08] MEDS ORDERED: NS 275ml ONE (11:26)
[2016-09-08 12:54] LABS: OTHERS PATHOLOGIST COMMENT
--- NOTE | 2016-09-08 13:54 | General Progress Note ---
Assessment/Plan Status: stable Status Narrative Cr 2.1 unchanged Assessment/Plan CKD- High K Obese COPD CHF, Diastolic MINA UTI Anemia GI Bleed, GI bleeding At Fib Pulm HTN Low B12 Plan; Optimize cardiac status- Monitor renal parameters and lytes- Avoid nephrotoxics B12 SQ- PO Folate Subjective ROS Limited/Unobtainable: No Constitutional: Reports: malaise Allergies: Coded Allergies: AMOXICILLIN (Verified Allergy, Mild, RASH, 12/25/09) MORPHINE (Unverified Allergy, Unknown, 09/06/16) PENICILLINS (Unverified Allergy, Unknown, 04/06/16) Objective Last 24 Hour Vital Signs Date Time Temp Pulse Resp B/P Pulse Ox O2 Delivery O2 Flow Rate FiO2 09/08/16 12:10 6.0 09/08/16 11:40 89 09/08/16 09:07 98.2 88 19 121/64 98 Nasal Cannula 5.0 09/08/16 08:15 6.0 09/08/16 08:00 86 09/08/16 08:00 98.2 88 19 121/64 98 Nasal Cannula 5.0 09/08/16 07:03 Nasal Cannula 5.0 40 09/08/16 07:02 91 Nasal Cannula 5.0 40 09/08/16 04:00 97.8 82 22 116/76 99 Nasal Cannula 5.0 09/08/16 04:00 6.0 09/08/16 04:00 83 09/08/16 00:49 97.9 86 20 113/64 98 Nasal Cannula 5.0 09/08/16 00:00 6.0 09/08/16 00:00 80 09/07/16 20:16 97.7 87 20 131/74 92 Nasal Cannula 5.0 09/07/16 20:00 6.0 09/07/16 20:00 88 09/07/16 19:00 94 Nasal Cannula 5.0 40 09/07/16 19:00 82 20 94 5.0 09/07/16 19:00 Nasal Cannula 5.0 40 09/07/16 16:50 75 16 96 09/07/16 16:29 96.3 89 20 118/65 93 Simple Mask 5.0 89 09/07/16 16:00 6.0 09/07/16 16:00 89 09/07/16 15:15 81 16 95 Intake and Output 09/07/16 09/08/16 19:00 07:00 Intake Total 1610 ml Output Total 220 ml 185 ml Balance 1390 ml -185 ml Intake Oral 1540 ml IV Total 50 ml Other 20 ml Output Urine Total 220 ml 185 ml Laboratory Tests 09/07/16 22:30: Troponin I < 0.30 09/08/16 03:45: Troponin I < 0.30, White Blood Count 6.3, Red Blood Count 3.13L, Hemoglobin 8.7L , Hematocrit 29.6L, Mean Corpuscular Volume 95, Mean Corpuscular Hemoglobin 27.9 , Mean Corpuscular Hemoglobin Concent 29.4L, Red Cell Distribution Width 14.9H, Platelet Count 156, Mean Platelet Volume 5.6L, Neutrophils (%) (Auto) 68.1, Lymphocytes (%) (Auto) 18.0L, Monocytes (%) (Auto) 10.0, Eosinophils (%) (Auto) 2.9, Basophils (%) (Auto) 1.0, Sodium Level 143, Potassium Level 4.9, Chloride Level 94L, Carbon Dioxide Level 36H, Anion Gap 13, Blood Urea Nitrogen 41H, Creatinine 2.1H, Estimat Glomerular Filtration Rate , Glucose Level 99, Hemoglobin A1c 4.8, Uric Acid 7.7H, Calcium Level 9.1, Phosphorus Level 5.2H, Magnesium Level 2.2, Total Bilirubin 0.5, Gamma Glutamyl Transpeptidase 18, Aspartate Amino Transf (AST/SGOT) 16, Alanine Aminotransferase (ALT/SGPT) 5, Alkaline Phosphatase 63, Total Creatine Kinase 60, C-Reactive Protein, Quantitative 2.2H, Pro-B-Type Natriuretic Peptide 7776H, Total Protein 7.3, Albumin 3.3L, Globulin 4.0, Albumin/Globulin Ratio 0.8L, Triglycerides Level 77 , Cholesterol Level 86, LDL Cholesterol 31L, HDL Cholesterol 40, Cholesterol/ HDL Ratio 2.2L, Thyroid Stimulating Hormone (TSH) 2.930 Height (Feet): 5 Height (Inches): 4.00 Weight (Pounds): 302 General Appearance: no apparent distress Objective no change COURTNEY LOPEZ Sep 08, 2016 13:54
--- NOTE | 2016-09-08 16:24 | Cardiology Report ---
APPROVED REPORT EKG Measurement Heart [id number] A. Right axis deviation Low voltage QRS Septal infarct, age undetermined T wave abnormality, consider inferior ischemia Abnormal ECG
--- NOTE | 2016-09-08 19:24 | Diagnostic Imaging Report ---
APPROVED REPORT CPT Code: 71480 Present Symptoms Shortness of breath Comments: R/O DVT Technically difficult and limited study due to vessel depth (body habitus). BILATERAL: Imaging reveals a patent deep venous system bilaterally. There is no evidence of thrombus within the right femoral, popliteal or tibial segments. The greater saphenous veins are also within normal limits. Doppler indicates normal spontaneous flow within these segments. The left common and proximal superficial femoral veins not well visualized.
--- NOTE | 2016-09-08 19:45 | Pulmonology Progress Note ---
Assessment/Plan Problems: (1) Acute respiratory failure (2) CKD (chronic kidney disease) (3) Hyperkalemia (4) COPD (chronic obstructive pulmonary disease) (5) Anemia (6) MINA (obstructive sleep apnea) Assessment/Plan h/h stable off bipap renal us and echo reviewed renal us and echo reviewed all meds and notes reviewed might go telemetry Subjective Interval Events: off bipap, doing better Allergies: Coded Allergies: AMOXICILLIN (Verified Allergy, Mild, RASH, 12/25/09) MORPHINE (Unverified Allergy, Unknown, 09/06/16) PENICILLINS (Unverified Allergy, Unknown, 04/06/16) Objective Last 24 Hour Vital Signs Date Time Temp Pulse Resp B/P Pulse Ox O2 Delivery O2 Flow Rate FiO2 09/08/16 19:21 84 22 95 Facial 35 09/08/16 19:21 Bi-pap 35 09/08/16 19:21 95 Bi-pap 35 09/08/16 18:00 35 09/08/16 17:16 83 26 99 Facial 35 09/08/16 16:00 50 09/08/16 16:00 86 09/08/16 16:00 97.2 83 14 120/64 92 Bi-pap 35 09/08/16 15:06 87 35 97 Facial 35 09/08/16 12:10 6.0 09/08/16 12:00 98.6 91 19 125/76 97 Nasal Cannula 5.0 09/08/16 11:40 89 09/08/16 09:07 98.2 88 19 121/64 98 Nasal Cannula 5.0 09/08/16 08:15 6.0 09/08/16 08:00 86 09/08/16 08:00 98.2 88 19 121/64 98 Nasal Cannula 5.0 09/08/16 07:03 Nasal Cannula 5.0 40 09/08/16 07:02 91 Nasal Cannula 5.0 40 09/08/16 04:00 97.8 82 22 116/76 99 Nasal Cannula 5.0 09/08/16 04:00 6.0 09/08/16 04:00 83 09/08/16 00:49 97.9 86 20 113/64 98 Nasal Cannula 5.0 09/08/16 00:00 6.0 09/08/16 00:00 80 09/07/16 20:16 97.7 87 20 131/74 92 Nasal Cannula 5.0 09/07/16 20:00 6.0 09/07/16 20:00 88 Intake and Output 09/07/16 09/08/16 19:00 07:00 Intake Total 1610 ml Output Total 220 ml 185 ml Balance 1390 ml -185 ml Intake Oral 1540 ml IV Total 50 ml Other 20 ml Output Urine Total 220 ml 185 ml General Appearance: WD/WN HEENT: normocephalic, atraumatic Respiratory/Chest: chest wall non-tender, lungs clear Breasts: no masses Cardiovascular: normal peripheral pulses Abdomen: normal bowel sounds Genitourinary: normal external genitalia Extremities: no cyanosis Microbiology Date/Time Source Procedure Growth Status 09/06/16 18:30 Blood Blood Culture - Preliminary NO GROWTH AFTER 24 HOURS Resulted 09/06/16 18:20 Blood Blood Culture - Preliminary NO GROWTH AFTER 24 HOURS Resulted 09/07/16 13:40 Urine,Clean Catch Urine Culture - Preliminary Gram Negative Bacillus 1 Resulted Laboratory Tests 09/07/16 22:30: Troponin I < 0.30 09/08/16 03:45: Troponin I < 0.30, White Blood Count 6.3, Red Blood Count 3.13L, Hemoglobin 8.7L , Hematocrit 29.6L, Mean Corpuscular Volume 95, Mean Corpuscular Hemoglobin 27.9 , Mean Corpuscular Hemoglobin Concent 29.4L, Red Cell Distribution Width 14.9H, Platelet Count 156, Mean Platelet Volume 5.6L, Neutrophils (%) (Auto) 68.1, Lymphocytes (%) (Auto) 18.0L, Monocytes (%) (Auto) 10.0, Eosinophils (%) (Auto) 2.9, Basophils (%) (Auto) 1.0, Sodium Level 143, Potassium Level 4.9, Chloride Level 94L, Carbon Dioxide Level 36H, Anion Gap 13, Blood Urea Nitrogen 41H, Creatinine 2.1H, Estimat Glomerular Filtration Rate , Glucose Level 99, Hemoglobin A1c 4.8, Uric Acid 7.7H, Calcium Level 9.1, Phosphorus Level 5.2H, Magnesium Level 2.2, Total Bilirubin 0.5, Gamma Glutamyl Transpeptidase 18, Aspartate Amino Transf (AST/SGOT) 16, Alanine Aminotransferase (ALT/SGPT) 5, Alkaline Phosphatase 63, Total Creatine Kinase 60, C-Reactive Protein, Quantitative 2.2H, Pro-B-Type Natriuretic Peptide 7776H, Total Protein 7.3, Albumin 3.3L, Globulin 4.0, Albumin/Globulin Ratio 0.8L, Triglycerides Level 77 , Cholesterol Level 86, LDL Cholesterol 31L, HDL Cholesterol 40, Cholesterol/ HDL Ratio 2.2L, Thyroid Stimulating Hormone (TSH) 2.930 Current Medications Medications (Trade) Dose Ordered Sig/Kalyn Route PRN Reason Start Time Stop Time Status Last Admin Dose Admin Acetaminophen (Tylenol) 650 mg Q4H PRN ORAL Fever 09/06/16 22:30 10/06/16 22:29 Albuterol/ Ipratropium (DuoNeb 0.5-3(2.5)mg/3ml) 3 ml Q4H PRN HHN Shortness of Breath 09/06/16 22:30 09/11/16 22:29 Aztreonam/Sodium Chloride (Azactam/Sodium Chloride) 50 ml @ 100 mls/hr Q8HR IVPB 09/07/16 07:30 09/14/16 07:29 09/08/16 14:04 Ciprofloxacin (Cipro 400mg/ 200ml premix bag) 200 ml @ 200 mls/hr Q24HRS IV 09/08/16 10:00 09/15/16 09:59 09/08/16 10:33 Cyanocobalamin (Vitamin B12) 1,000 mcg DAILY SUBQ 09/07/16 14:00 09/09/16 09:01 09/08/16 09:43 Dextrose (Dextrose 50%) STAT PRN IV Hypoglycemia 09/06/16 22:30 10/06/16 22:29 Folic Acid 2 mg 2 mg DAILY ORAL 09/07/16 17:00 10/07/16 16:59 09/08/16 09:40 Furosemide (Lasix) 20 mg Q12HR ORAL 09/07/16 21:00 10/07/16 20:59 09/08/16 09:39 Gabapentin (Neurontin) 600 mg DAILY ORAL 09/09/16 09:00 10/07/16 08:59 Heparin Sodium (Porcine) (Heparin 5000 units/ml) 5,000 units EVERY 12 HOURS SUBQ 09/07/16 21:00 10/07/16 20:59 09/08/16 09:45 Letrozole (Femara) 2.5 mg DAILY ORAL 09/08/16 09:00 09/13/16 08:59 09/08/16 09:42 Ondansetron HCl (Zofran) 4 mg Q6H PRN IVP Nausea & Vomiting 09/06/16 22:30 10/06/16 22:29 Pantoprazole 40 mg 40 mg EVERY 12 HOURS IVP 09/07/16 06:00 10/07/16 05:59 09/08/16 09:38 Polyethylene Glycol (Miralax) 17 gm DAILY ORAL 09/08/16 09:00 10/08/16 08:59 09/08/16 09:38 Polyethylene Glycol (Miralax) 17 gm DAILYPRN PRN ORAL Constipation 09/06/16 22:30 10/06/16 22:29 Pravastatin Sodium (Pravachol) 20 mg BEDTIME ORAL 09/07/16 21:00 10/07/16 20:59 09/07/16 20:14 Sildenafil Citrate (Revatio) 40 mg Q8HR ORAL 09/07/16 14:00 10/07/16 13:59 09/08/16 14:04 Temazepam (Restoril) 15 mg HSPRN PRN ORAL Insomnia 09/06/16 22:30 09/13/16 22:29 ARASH MIRANDA Sep 08, 2016 19:45
--- NOTE | 2016-09-08 20:28 | Cardiology Progress Note ---
Assessment/Plan Assessment/Plan 1. Coffee-ground emesis. 2. Anemia, worsened, chronic. 3. Gastrointestinal bleed. 4. Permanent atrial fibrillation, on anticoagulation with Eliquis. 5. History of pulmonary hypertension of significant degree, treated with sildenafil. 6. Systemic hypertension. 7. Chronic renal insufficiency. 8. Diabetes mellitus hgb noted tele noted bp seem ok off leique for nwo tele noted afib vr ok Subjective ROS Limited/Unobtainable: Yes Subjective on bipap sleepy Objective Last 24 Hour Vital Signs Date Time Temp Pulse Resp B/P Pulse Ox O2 Delivery O2 Flow Rate FiO2 09/08/16 19:21 84 22 95 Facial 35 09/08/16 19:21 Bi-pap 35 09/08/16 19:21 95 Bi-pap 35 09/08/16 18:00 35 09/08/16 17:16 83 26 99 Facial 35 09/08/16 16:00 50 09/08/16 16:00 86 09/08/16 16:00 97.2 83 14 120/64 92 Bi-pap 35 09/08/16 15:06 87 35 97 Facial 35 09/08/16 12:10 6.0 09/08/16 12:00 98.6 91 19 125/76 97 Nasal Cannula 5.0 09/08/16 11:40 89 09/08/16 09:07 98.2 88 19 121/64 98 Nasal Cannula 5.0 09/08/16 08:15 6.0 09/08/16 08:00 86 09/08/16 08:00 98.2 88 19 121/64 98 Nasal Cannula 5.0 09/08/16 07:03 Nasal Cannula 5.0 40 09/08/16 07:02 91 Nasal Cannula 5.0 40 09/08/16 04:00 97.8 82 22 116/76 99 Nasal Cannula 5.0 09/08/16 04:00 6.0 09/08/16 04:00 83 09/08/16 00:49 97.9 86 20 113/64 98 Nasal Cannula 5.0 09/08/16 00:00 6.0 09/08/16 00:00 80 General Appearance: other - drowsey / sleeping Neck: supple Cardiovascular: irregularly irregular Respiratory/Chest: lungs clear - ant Abdomen: normal bowel sounds, non tender, soft Extremities: trace edema Intake and Output 09/07/16 09/08/16 19:00 07:00 Intake Total 1610 ml Output Total 220 ml 185 ml Balance 1390 ml -185 ml Intake Oral 1540 ml IV Total 50 ml Other 20 ml Output Urine Total 220 ml 185 ml Laboratory Tests Test 09/07/16 22:30 09/08/16 03:45 Troponin I < 0.30 ng/mL (<=0.30) < 0.30 ng/mL (<=0.30) White Blood Count 6.3 K/UL (4.8-10.8) Red Blood Count 3.13 M/UL (4.20-5.40) L Hemoglobin 8.7 G/DL (12.0-16.0) L Hematocrit 29.6 % (37.0-47.0) L Mean Corpuscular Volume 95 FL (80-99) Mean Corpuscular Hemoglobin 27.9 PG (27.0-31.0) Mean Corpuscular Hemoglobin Concent 29.4 G/DL (32.0-36.0) L Red Cell Distribution Width 14.9 % (11.6-14.8) H Platelet Count 156 K/UL (150-450) Mean Platelet Volume 5.6 FL (6.5-10.1) L Neutrophils (%) (Auto) 68.1 % (45.0-75.0) Lymphocytes (%) (Auto) 18.0 % (20.0-45.0) L Monocytes (%) (Auto) 10.0 % (1.0-10.0) Eosinophils (%) (Auto) 2.9 % (0.0-3.0) Basophils (%) (Auto) 1.0 % (0.0-2.0) Sodium Level 143 mEQ/L (135-145) Potassium Level 4.9 mEQ/L (3.4-4.9) Chloride Level 94 mEQ/L (98-107) L Carbon Dioxide Level 36 mEQ/L (20-30) H Anion Gap 13 (5-15) Blood Urea Nitrogen 41 mg/dL (7-23) H Creatinine 2.1 mg/dL (0.5-0.9) H Estimat Glomerular Filtration Rate mL/min (>60) Glucose Level 99 mg/dL (74-106) Hemoglobin A1c 4.8 % (< 6.0) Uric Acid 7.7 mg/dL (3.0-7.5) H Calcium Level 9.1 mg/dL (8.6-10.2) Phosphorus Level 5.2 mg/dL (2.5-4.8) H Magnesium Level 2.2 mg/dL (1.7-2.5) Total Bilirubin 0.5 mg/dL (0.0-1.2) Gamma Glutamyl Transpeptidase 18 U/L (5-36) Aspartate Amino Transf (AST/SGOT) 16 U/L (5-40) Alanine Aminotransferase (ALT/SGPT) 5 U/L (3-33) Alkaline Phosphatase 63 U/L (35-104) Total Creatine Kinase 60 U/L (26-140) C-Reactive Protein, Quantitative 2.2 mg/dL (< 0.5) H Pro-B-Type Natriuretic Peptide 7776 pg/mL (0-125) H Total Protein 7.3 g/dL (6.6-8.7) Albumin 3.3 g/dL (3.5-5.2) L Globulin 4.0 g/dL Albumin/Globulin Ratio 0.8 (1.0-2.7) L Triglycerides Level 77 mg/dL (< 150) Cholesterol Level 86 mg/dL (< 200) LDL Cholesterol 31 mg/dL (60-99) L HDL Cholesterol 40 mg/dL (> 60) Cholesterol/HDL Ratio 2.2 (3.3-4.4) L Thyroid Stimulating Hormone (TSH) 2.930 uIU/mL (0.300-4.500) Microbiology Date/Time Source Procedure Growth Status 09/06/16 18:30 Blood Blood Culture - Preliminary NO GROWTH AFTER 24 HOURS Resulted 09/06/16 18:20 Blood Blood Culture - Preliminary NO GROWTH AFTER 24 HOURS Resulted 09/07/16 13:40 Urine,Clean Catch Urine Culture - Preliminary Gram Negative Bacillus 1 Resulted BRIANA TELLES Sep 08, 2016 20:28
--- NOTE | 2016-09-08 22:10 | General Progress Note ---
Assessment/Plan Assessment/Plan Assessment - UGIB - likely GERD, patient declines EGD at this time - Anemia-Last EGD/Colon 05/2014 (duodenal AVM- cauterized, mild diverticulosis) - Chronic hypercapnic resp failure - Renal failure - Morbid obesity - CHF - atrial fibrillation Recommendations - no plans for endoscopy per patient decision - Rx empirically with H2B - Monitor H&H - Transfuse PRN - Elevate HOB - OK to restart systemic anticoagulation from GI standpoint - push PO Subjective Allergies: Coded Allergies: AMOXICILLIN (Verified Allergy, Mild, RASH, 12/25/09) MORPHINE (Unverified Allergy, Unknown, 09/06/16) PENICILLINS (Unverified Allergy, Unknown, 04/06/16) Subjective No events overnight less awake back on BIPAP Objective Last 24 Hour Vital Signs Date Time Temp Pulse Resp B/P Pulse Ox O2 Delivery O2 Flow Rate FiO2 09/08/16 21:05 87 28 95 Facial 35 09/08/16 19:37 82 09/08/16 19:21 84 22 95 Facial 35 09/08/16 19:21 Bi-pap 35 09/08/16 19:21 95 Bi-pap 35 09/08/16 18:00 35 09/08/16 17:16 83 26 99 Facial 35 09/08/16 16:00 50 09/08/16 16:00 86 09/08/16 16:00 97.2 83 14 120/64 92 Bi-pap 35 09/08/16 15:06 87 35 97 Facial 35 09/08/16 12:10 6.0 09/08/16 12:00 98.6 91 19 125/76 97 Nasal Cannula 5.0 09/08/16 11:40 89 09/08/16 09:07 98.2 88 19 121/64 98 Nasal Cannula 5.0 09/08/16 08:15 6.0 09/08/16 08:00 86 09/08/16 08:00 98.2 88 19 121/64 98 Nasal Cannula 5.0 09/08/16 07:03 Nasal Cannula 5.0 40 09/08/16 07:02 91 Nasal Cannula 5.0 40 09/08/16 04:00 97.8 82 22 116/76 99 Nasal Cannula 5.0 09/08/16 04:00 6.0 09/08/16 04:00 83 09/08/16 00:49 97.9 86 20 113/64 98 Nasal Cannula 5.0 09/08/16 00:00 6.0 09/08/16 00:00 80 Intake and Output 09/07/16 09/08/16 19:00 07:00 Intake Total 1610 ml Output Total 220 ml 185 ml Balance 1390 ml -185 ml Intake Oral 1540 ml IV Total 50 ml Other 20 ml Output Urine Total 220 ml 185 ml Laboratory Tests 09/07/16 22:30: Troponin I < 0.30 09/08/16 03:45: Troponin I < 0.30, White Blood Count 6.3, Red Blood Count 3.13L, Hemoglobin 8.7L , Hematocrit 29.6L, Mean Corpuscular Volume 95, Mean Corpuscular Hemoglobin 27.9 , Mean Corpuscular Hemoglobin Concent 29.4L, Red Cell Distribution Width 14.9H, Platelet Count 156, Mean Platelet Volume 5.6L, Neutrophils (%) (Auto) 68.1, Lymphocytes (%) (Auto) 18.0L, Monocytes (%) (Auto) 10.0, Eosinophils (%) (Auto) 2.9, Basophils (%) (Auto) 1.0, Sodium Level 143, Potassium Level 4.9, Chloride Level 94L, Carbon Dioxide Level 36H, Anion Gap 13, Blood Urea Nitrogen 41H, Creatinine 2.1H, Estimat Glomerular Filtration Rate , Glucose Level 99, Hemoglobin A1c 4.8, Uric Acid 7.7H, Calcium Level 9.1, Phosphorus Level 5.2H, Magnesium Level 2.2, Total Bilirubin 0.5, Gamma Glutamyl Transpeptidase 18, Aspartate Amino Transf (AST/SGOT) 16, Alanine Aminotransferase (ALT/SGPT) 5, Alkaline Phosphatase 63, Total Creatine Kinase 60, C-Reactive Protein, Quantitative 2.2H, Pro-B-Type Natriuretic Peptide 7776H, Total Protein 7.3, Albumin 3.3L, Globulin 4.0, Albumin/Globulin Ratio 0.8L, Triglycerides Level 77 , Cholesterol Level 86, LDL Cholesterol 31L, HDL Cholesterol 40, Cholesterol/ HDL Ratio 2.2L, Thyroid Stimulating Hormone (TSH) 2.930 Height (Feet): 5 Height (Inches): 4.00 Weight (Pounds): 302 Objective Obese WW NCAT supple Coarse BS RR Abd soft NT ND, obese (+) edema Neuro - arousable, responsive BRETT DALE Sep 08, 2016 22:10
[2016-09-09] VITALS (7 sets, daily range): BP systolic 102–128; BP diastolic 58–70
[2016-09-09 05:26] LABS: MEAN CORPUSCULAR HEMOGLOBIN 28.2 PG (27.0-31.0); MEAN CORPUSCULAR HGB CONC 29.6 G/DL (32.0-36.0); MEAN CORPUSCULAR VOLUME 95 FL (80-99); MEAN PLATELET VOLUME 5.9 FL (6.5-10.1); PLATELET COUNT 140 K/UL (150-450); RED BLOOD COUNT 2.82 M/UL (4.20-5.40); RED CELL DISTRIBUTION WIDTH 14.8 % (11.6-14.8); WHITE BLOOD COUNT 4.9 K/UL (4.8-10.8)
[2016-09-09] MEDS: NS IVPB SCH (06:22)
[2016-09-09] MEDS: AZTREONAM IVPB SCH (06:22)
[2016-09-09] MEDS: Revatio 20mg tab ORAL SCH ×3 (06:23→22:09)
[2016-09-09] MEDS: Pantoprazole Inj IVP SCH ×2 (08:40→22:08)
[2016-09-09] MEDS: Heparin 5000 units/ml inj SUBQ SCH ×2 (08:40→21:00)
[2016-09-09] MEDS: Vitamin B12 1000mcg/ml Inj SUBQ SCH (08:40)
[2016-09-09] MEDS: Miralax 17gm pkt ORAL SCH (08:41)
[2016-09-09] MEDS ORDERED: Miralax 17gm pkt ORAL PRN (10:00)
[2016-09-09] MEDS ORDERED: DuoNeb 0.5-3(2.5)mg/3ml neb HHN PRN (10:30)
--- NOTE | 2016-09-09 12:20 | General Progress Note ---
Assessment/Plan Assessment/Plan Assessment - UGIB - likely GERD, still at high risk for EGD, but can check EGD instead - Anemia-Last EGD/Colon 05/2014 (duodenal AVM- cauterized, mild diverticulosis) - Chronic hypercapnic resp failure - Renal failure - Morbid obesity - CHF - atrial fibrillation Recommendations - check UGI series in am - Rx empirically with H2B - Monitor H&H - Transfuse PRN - Elevate HOB - push PO Subjective Allergies: Coded Allergies: AMOXICILLIN (Verified Allergy, Mild, RASH, 12/25/09) MORPHINE (Unverified Allergy, Unknown, 09/06/16) PENICILLINS (Unverified Allergy, Unknown, 04/06/16) Subjective Getting another unit of blood today tolerating PO on O2 d/w RN Objective Last 24 Hour Vital Signs Date Time Temp Pulse Resp B/P Pulse Ox O2 Delivery O2 Flow Rate FiO2 09/09/16 09:28 95 09/09/16 08:00 35.0 09/09/16 08:00 96.8 87 22 121/58 100 Venturi Mask 55 09/09/16 07:05 81 20 97 09/09/16 06:58 78 20 99 Facial 35 09/09/16 06:57 94 Bi-pap 35 09/09/16 06:57 Bi-pap 09/09/16 05:14 83 20 96 Facial 35 09/09/16 04:00 35 09/09/16 04:00 96.8 74 24 106/65 97 Bi-pap 35 09/09/16 04:00 80 09/09/16 03:03 79 22 96 Facial 35 09/09/16 00:52 82 18 95 Facial 35 09/09/16 00:00 84 09/09/16 00:00 35 09/09/16 00:00 98.2 84 25 115/64 93 Bi-pap 35 09/08/16 22:35 78 21 94 Facial 35 09/08/16 21:05 87 28 95 Facial 35 09/08/16 20:00 96.1 82 22 121/75 96 Bi-pap 35 09/08/16 19:37 82 09/08/16 19:21 84 22 95 Facial 35 09/08/16 19:21 Bi-pap 35 09/08/16 19:21 95 Bi-pap 35 09/08/16 18:00 35 09/08/16 17:16 83 26 99 Facial 35 09/08/16 16:00 50 09/08/16 16:00 86 09/08/16 16:00 97.2 83 14 120/64 92 Bi-pap 35 09/08/16 15:06 87 35 97 Facial 35 Intake and Output 09/08/16 09/09/16 19:00 07:00 Intake Total 300 ml 50 ml Output Total 300 ml 200 ml Balance 0 ml -150 ml IV Total 300 ml 50 ml Output Urine Total 300 ml 200 ml # Bowel Movements 1 Laboratory Tests 09/09/16 04:10: White Blood Count 4.9, Red Blood Count 2.82L, Hemoglobin 7.9L, Hematocrit 26.8L , Mean Corpuscular Volume 95, Mean Corpuscular Hemoglobin 28.2, Mean Corpuscular Hemoglobin Concent 29.6L, Red Cell Distribution Width 14.8, Platelet Count 140L, Mean Platelet Volume 5.9L, Neutrophils (%) (Auto) , Lymphocytes (%) (Auto) , Monocytes (%) (Auto) , Eosinophils (%) (Auto) , Basophils (%) (Auto) Height (Feet): 5 Height (Inches): 4.00 Weight (Pounds): 310 Objective Obese WW NCAT supple Coarse BS, ronchi RR Abd soft NT ND, obese (+) edema Neuro - arousable, responsive BRETT DALE Sep 09, 2016 12:20
--- NOTE | 2016-09-09 13:50 | General Progress Note ---
Assessment/Plan Status: stable - from renal stand Status Narrative Cr unchanged 2.1 Assessment/Plan CKD- High K Obese COPD CHF, Diastolic MINA UTI Anemia GI Bleed, GI bleeding At Fib Pulm HTN Low B12 Plan; Optimize cardiac status- Monitor renal parameters and lytes- Avoid nephrotoxics B12 SQ- PO Folate Subjective ROS Limited/Unobtainable: No Constitutional: Reports: malaise, weakness Allergies: Coded Allergies: AMOXICILLIN (Verified Allergy, Mild, RASH, 12/25/09) MORPHINE (Unverified Allergy, Unknown, 09/06/16) PENICILLINS (Unverified Allergy, Unknown, 04/06/16) Objective Last 24 Hour Vital Signs Date Time Temp Pulse Resp B/P Pulse Ox O2 Delivery O2 Flow Rate FiO2 09/09/16 12:18 88 96 09/09/16 12:00 84 09/09/16 12:00 97.2 88 20 102/61 98 Venturi Mask 55 09/09/16 09:28 95 09/09/16 08:00 89 09/09/16 08:00 35.0 09/09/16 08:00 96.8 87 22 121/58 100 Venturi Mask 55 09/09/16 07:05 81 20 97 09/09/16 06:58 78 20 99 Facial 35 09/09/16 06:57 94 Bi-pap 35 09/09/16 06:57 Bi-pap 09/09/16 05:14 83 20 96 Facial 35 09/09/16 04:00 35 09/09/16 04:00 96.8 74 24 106/65 97 Bi-pap 35 09/09/16 04:00 80 09/09/16 03:03 79 22 96 Facial 35 09/09/16 00:52 82 18 95 Facial 35 09/09/16 00:00 84 09/09/16 00:00 35 09/09/16 00:00 98.2 84 25 115/64 93 Bi-pap 35 09/08/16 22:35 78 21 94 Facial 35 09/08/16 21:05 87 28 95 Facial 35 09/08/16 20:00 96.1 82 22 121/75 96 Bi-pap 35 09/08/16 19:37 82 09/08/16 19:21 84 22 95 Facial 35 09/08/16 19:21 Bi-pap 35 09/08/16 19:21 95 Bi-pap 35 09/08/16 18:00 35 09/08/16 17:16 83 26 99 Facial 35 09/08/16 16:00 50 09/08/16 16:00 86 09/08/16 16:00 97.2 83 14 120/64 92 Bi-pap 35 09/08/16 15:06 87 35 97 Facial 35 Intake and Output 09/08/16 09/09/16 19:00 07:00 Intake Total 300 ml 50 ml Output Total 300 ml 200 ml Balance 0 ml -150 ml IV Total 300 ml 50 ml Output Urine Total 300 ml 200 ml # Bowel Movements 1 Laboratory Tests 09/09/16 04:10: White Blood Count 4.9, Red Blood Count 2.82L, Hemoglobin 7.9L, Hematocrit 26.8L , Mean Corpuscular Volume 95, Mean Corpuscular Hemoglobin 28.2, Mean Corpuscular Hemoglobin Concent 29.6L, Red Cell Distribution Width 14.8, Platelet Count 140L, Mean Platelet Volume 5.9L, Neutrophils (%) (Auto) , Lymphocytes (%) (Auto) , Monocytes (%) (Auto) , Eosinophils (%) (Auto) , Basophils (%) (Auto) Height (Feet): 5 Height (Inches): 4.00 Weight (Pounds): 310 General Appearance: no apparent distress, lethargic Cardiovascular: normal rate Respiratory/Chest: decreased breath sounds Abdomen: soft Objective no change COURTNEY LOPEZ Sep 09, 2016 13:50
[2016-09-09] MEDS ORDERED: NS IVPB SCH (14:00)
[2016-09-09] MEDS ORDERED: AZTREONAM IVPB SCH (14:00)
--- NOTE | 2016-09-09 14:12 | Pulmonology Progress Note ---
Assessment/Plan Problems: (1) Acute respiratory failure (2) CKD (chronic kidney disease) (3) Hyperkalemia (4) COPD (chronic obstructive pulmonary disease) (5) Anemia (6) MINA (obstructive sleep apnea) Assessment/Plan h/h stable off bipap renal us and echo reviewed renal us and echo reviewed all meds and notes reviewed prbc ordered taper down fio2 Subjective ROS Limited/Unobtainable: No Constitutional: Reports: no symptoms HEENT: Repors: no symptoms Respiratory: Reports: no symptoms Allergies: Coded Allergies: AMOXICILLIN (Verified Allergy, Mild, RASH, 12/25/09) MORPHINE (Unverified Allergy, Unknown, 09/06/16) PENICILLINS (Unverified Allergy, Unknown, 04/06/16) Objective Last 24 Hour Vital Signs Date Time Temp Pulse Resp B/P Pulse Ox O2 Delivery O2 Flow Rate FiO2 09/09/16 12:18 88 96 09/09/16 12:00 84 09/09/16 12:00 97.2 88 20 102/61 98 Venturi Mask 55 09/09/16 09:28 95 09/09/16 08:00 89 09/09/16 08:00 35.0 09/09/16 08:00 96.8 87 22 121/58 100 Venturi Mask 55 09/09/16 07:05 81 20 97 09/09/16 06:58 78 20 99 Facial 35 09/09/16 06:57 94 Bi-pap 35 09/09/16 06:57 Bi-pap 09/09/16 05:14 83 20 96 Facial 35 09/09/16 04:00 35 09/09/16 04:00 96.8 74 24 106/65 97 Bi-pap 35 09/09/16 04:00 80 09/09/16 03:03 79 22 96 Facial 35 09/09/16 00:52 82 18 95 Facial 35 09/09/16 00:00 84 09/09/16 00:00 35 09/09/16 00:00 98.2 84 25 115/64 93 Bi-pap 35 09/08/16 22:35 78 21 94 Facial 35 09/08/16 21:05 87 28 95 Facial 35 09/08/16 20:00 96.1 82 22 121/75 96 Bi-pap 35 09/08/16 19:37 82 09/08/16 19:21 84 22 95 Facial 35 09/08/16 19:21 Bi-pap 35 09/08/16 19:21 95 Bi-pap 35 09/08/16 18:00 35 09/08/16 17:16 83 26 99 Facial 35 09/08/16 16:00 50 09/08/16 16:00 86 09/08/16 16:00 97.2 83 14 120/64 92 Bi-pap 35 09/08/16 15:06 87 35 97 Facial 35 Intake and Output 09/08/16 09/09/16 19:00 07:00 Intake Total 300 ml 50 ml Output Total 300 ml 200 ml Balance 0 ml -150 ml IV Total 300 ml 50 ml Output Urine Total 300 ml 200 ml # Bowel Movements 1 General Appearance: WD/WN HEENT: normocephalic, atraumatic Respiratory/Chest: chest wall non-tender, normal breath sounds Breasts: no masses Cardiovascular: normal peripheral pulses, normal rate Abdomen: normal bowel sounds, soft, non tender Microbiology Date/Time Source Procedure Growth Status 09/06/16 18:30 Blood Blood Culture - Preliminary NO GROWTH AFTER 48 HOURS Resulted 09/06/16 18:20 Blood Blood Culture - Preliminary NO GROWTH AFTER 48 HOURS Resulted 09/06/16 22:43 Nasal Nares MRSA Culture - Final NO METHICILLIN RESISTANT STAPH AUREUS... Complete 09/07/16 13:40 Urine,Clean Catch Urine Culture - Final Escherichia Coli - Esbl Complete Laboratory Tests 09/09/16 04:10: White Blood Count 4.9, Red Blood Count 2.82L, Hemoglobin 7.9L, Hematocrit 26.8L , Mean Corpuscular Volume 95, Mean Corpuscular Hemoglobin 28.2, Mean Corpuscular Hemoglobin Concent 29.6L, Red Cell Distribution Width 14.8, Platelet Count 140L, Mean Platelet Volume 5.9L, Neutrophils (%) (Auto) , Lymphocytes (%) (Auto) , Monocytes (%) (Auto) , Eosinophils (%) (Auto) , Basophils (%) (Auto) Current Medications Medications (Trade) Dose Ordered Sig/Kalyn Route PRN Reason Start Time Stop Time Status Last Admin Dose Admin Acetaminophen (Tylenol) 650 mg Q4H PRN ORAL T>100.5 09/09/16 10:30 10/09/16 10:29 Albuterol/ Ipratropium (DuoNeb 0.5-3(2.5)mg/3ml) 3 ml Q4H PRN HHN Shortness of Breath 09/09/16 10:30 09/14/16 10:29 Aztreonam 0.5 gm/ Sodium Chloride 50 ml @ 100 mls/hr Q8HR IVPB 09/09/16 14:00 09/16/16 13:59 Ciprofloxacin (Cipro 400mg/ 200ml premix bag) 200 ml @ 200 mls/hr Q24HRS IV 09/09/16 10:00 09/16/16 09:59 09/09/16 09:52 Dextrose (Dextrose 50%) STAT PRN IV Hypoglycemia 09/09/16 10:00 10/09/16 09:59 Folic Acid (Folate) 2 mg DAILY ORAL 09/10/16 09:00 10/10/16 08:59 Furosemide (Lasix) 20 mg Q12HR ORAL 09/09/16 21:00 10/09/16 20:59 Gabapentin (Neurontin) 600 mg DAILY ORAL 09/10/16 09:00 10/10/16 08:59 Heparin Sodium (Porcine) (Heparin 5000 units/ml) 5,000 units EVERY 12 HOURS SUBQ 09/09/16 21:00 10/09/16 20:59 Letrozole (Femara) 2.5 mg DAILY ORAL 09/10/16 09:00 09/15/16 08:59 Ondansetron HCl (Zofran) 4 mg Q6H PRN IVP Nausea & Vomiting 09/09/16 10:30 10/09/16 10:29 Pantoprazole (Protonix) 40 mg EVERY 12 HOURS IVP 09/09/16 21:00 10/09/16 20:59 Polyethylene Glycol (Miralax) 17 gm DAILY ORAL 09/10/16 09:00 10/10/16 08:59 Polyethylene Glycol (Miralax) 17 gm DAILYPRN PRN ORAL Constipation 09/09/16 10:00 10/09/16 09:59 Pravastatin Sodium (Pravachol) 20 mg BEDTIME ORAL 09/09/16 21:00 10/09/16 20:59 Sildenafil Citrate (Revatio) 40 mg Q8HR ORAL 09/09/16 14:00 10/09/16 13:59 Temazepam (Restoril) 15 mg HSPRN PRN ORAL Insomnia 09/09/16 21:00 09/16/16 20:59 ARASH MIRANDA Sep 09, 2016 14:12
[2016-09-09] MEDS ORDERED: Ertapenem 1gm in NS 55ml IVPB ONE (18:00)
--- NOTE | 2016-09-09 19:52 | General Progress Note ---
Assessment/Plan Status: doing well Assessment/Plan 1. Acute respiratory failure requiring BiPAP --Bipap on stand by -curerntly tolerating NC saturating well - Dr Anju llanos 2. Acute gastrointestinal bleed with acute anemia requiring blood transfusion. -s/p BT 2 units, H/H stable, no more episodes of hematemesis -diet was advanced by GI currently on soft diet tolerating diet - follow Dr Rodriguez recommendations, UGI ordered , will transfuse 2 more units of PRBC, am cbc 3. Acute kidney injury on chronic kidney disease. -stable, renal US noted - follow Dr Zamora recommendations 4. Hyperkalemia., resolved. 5. Acute diastolic ongestive heart failure. - on lasix - Dr Peralta cardio 6. Atrial fibrillation. - off eliquis for now 7. Pulmonary hypertension. - on sildanefil 8. Morbid obesity. 9. Chronic obstructive pulmonary disease. continue CPAP will order for home as well as home oxygen 10. Chronic obstructive sleep apnea. 11. UTI Ecoli ESBL: Ertapenam 1 g iv , ID to see patient for further recommendations 12. morbid obesity: diet and weight loss encouraged 13. DJD: will need pt/ot, home health once dc, will order large wheel chair, hospital bed for home use PT/OT Discharge plan: patient may not be able to go back to SNF due to lack of available days only option would be DC home with HH-- Mr Zavala aware Discharge planning for tomorrow, CM to contact Mr Zavala for hospital bed and DMEs continue telemetry Subjective Date patient seen: Sep 09, 2016 Allergies: Coded Allergies: AMOXICILLIN (Verified Allergy, Mild, RASH, 12/25/09) MORPHINE (Unverified Allergy, Unknown, 09/06/16) PENICILLINS (Unverified Allergy, Unknown, 04/06/16) All Systems: reviewed and negative except above Subjective The patient was seen and examined at bedside and all new and available data was reviewed in the patients chart. I agree with the above findings, impression and plan. (Patient seen earlier today. Signature stamp does not reflect patient encounter time.). -Manny Nolan MD Objective Last 24 Hour Vital Signs Date Time Temp Pulse Resp B/P Pulse Ox O2 Delivery O2 Flow Rate FiO2 09/09/16 16:00 97.5 76 18 112/68 93 Venturi Mask 55 09/09/16 16:00 122 09/09/16 12:18 88 96 09/09/16 12:00 84 09/09/16 12:00 97.2 88 20 102/61 98 Venturi Mask 55 09/09/16 09:28 95 09/09/16 08:00 89 09/09/16 08:00 35.0 09/09/16 08:00 96.8 87 22 121/58 100 Venturi Mask 55 09/09/16 07:05 81 20 97 09/09/16 06:58 78 20 99 Facial 35 09/09/16 06:57 94 Bi-pap 35 09/09/16 06:57 Bi-pap 09/09/16 05:14 83 20 96 Facial 35 09/09/16 04:00 35 09/09/16 04:00 96.8 74 24 106/65 97 Bi-pap 35 09/09/16 04:00 80 09/09/16 03:03 79 22 96 Facial 35 09/09/16 00:52 82 18 95 Facial 35 09/09/16 00:00 84 09/09/16 00:00 35 09/09/16 00:00 98.2 84 25 115/64 93 Bi-pap 35 09/08/16 22:35 78 21 94 Facial 35 09/08/16 21:05 87 28 95 Facial 35 09/08/16 20:00 96.1 82 22 121/75 96 Bi-pap 35 Intake and Output 09/08/16 09/09/16 19:00 07:00 Intake Total 300 ml 50 ml Output Total 300 ml 200 ml Balance 0 ml -150 ml IV Total 300 ml 50 ml Output Urine Total 300 ml 200 ml # Bowel Movements 1 Laboratory Tests 09/09/16 04:10: White Blood Count 4.9, Red Blood Count 2.82L, Hemoglobin 7.9L, Hematocrit 26.8L , Mean Corpuscular Volume 95, Mean Corpuscular Hemoglobin 28.2, Mean Corpuscular Hemoglobin Concent 29.6L, Red Cell Distribution Width 14.8, Platelet Count 140L, Mean Platelet Volume 5.9L, Neutrophils (%) (Auto) , Lymphocytes (%) (Auto) , Monocytes (%) (Auto) , Eosinophils (%) (Auto) , Basophils (%) (Auto) Height (Feet): 5 Height (Inches): 4.00 Weight (Pounds): 310 General Appearance: alert, mild distress, morbidly obese EENT: PERRL/EOMI Neck: non-tender Cardiovascular: normal rate, regular rhythm Respiratory/Chest: lungs clear Abdomen: normal bowel sounds, non tender, soft Extremities: normal range of motion Edema: no edema noted Arm (L), no edema noted Arm (R), no edema noted Leg (L), no edema noted Leg (R), no edema noted Pedal (L), no edema noted Pedal (R), no edema noted Generalized 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
[2016-09-10] VITALS (9 sets, daily range): BP systolic 92–115; BP diastolic 45–64
--- NOTE | 2016-09-10 02:15 | Consultation ---
DATE OF CONSULTATION: 09/09/2016 HISTORY OF PRESENT ILLNESS: The patient is a 75-year-old, obese female with a history of pneumonia, CHF, COPD, MINA, CKD, acute respiratory failure, atrial fibrillation, and obesity who was admitted to the hospital. She is presenting with confusion and altered mental status. During the evaluation, the patient was alert and oriented to self and place. She did not know the year, she thought we are in 2011, did not know the month or the date. The patient apparently presented with waxing and waning in consciousness during the day. She is more alert and awake at night. She was a poor historian and was not able to provide much history. She was concerned about receiving blood and was asking how much blood she received. The patient endorsed anxiety and fatigue as well as malaise. PAST PSYCHIATRIC HISTORY: She stated that she has never seen a psychiatrist; however, she is an unreliable historian. She is currently on no psychotropic medications. PAST MEDICAL HISTORY: Significant for chronic heart failure, pulmonary hypertension, atrial fibrillation, diabetes mellitus, chronic kidney disease, anemia, respiratory failure, cellulitis, kidney disease, cardiorenal syndrome, diabetic nephropathy and systemic hypertension. ALLERGIES: There is no known drug allergies. SUBSTANCE ABUSE HISTORY: There is no history of illicit drug use or alcohol. The patient used to smoke 34 years ago. SOCIAL HISTORY: The patient lives in an assisted living. MENTAL STATUS EXAMINATION: The patient is alert and oriented to time, self, place, and situation. Her mood is anxious. Affect is constricted. Congruent mood. Thought process is concrete. Thought content, there is no suicidal or homicidal ideation. ASSESSMENT: [place] I Delirium due to general medical condition. [place] II Deferred. [place] III As above. [place] IV Moderate. [place] V 20. PLAN: 1. We will start the patient on low-dose of antipsychotic of risperidone 1 mg at bedtime. 2. Continue to follow and readjust the medication. Eda Pena M.D. DR: BERTHA JOB#: [id number] CC:
[2016-09-10] MEDS: Revatio 20mg tab ORAL SCH ×3 (05:58→21:44)
[2016-09-10 06:44] LABS: BASOPHILS % (AUTO) 0.8 % (0.0-2.0); EOSINOPHILS % (AUTO) 1.2 % (0.0-3.0); LYMPHOCYTES % (AUTO) 17.6 % (20.0-45.0); MEAN CORPUSCULAR HEMOGLOBIN 28.4 PG (27.0-31.0); MEAN CORPUSCULAR HGB CONC 29.1 G/DL (32.0-36.0); MEAN CORPUSCULAR VOLUME 97 FL (80-99); MEAN PLATELET VOLUME 5.8 FL (6.5-10.1); MONOCYTES % (AUTO) 9.6 % (1.0-10.0); NEUTROPHILS % (AUTO) 70.7 % (45.0-75.0); PLATELET COUNT 137 K/UL (150-450); RED BLOOD COUNT 3.29 M/UL (4.20-5.40); RED CELL DISTRIBUTION WIDTH 14.6 % (11.6-14.8); WHITE BLOOD COUNT 6.1 K/UL (4.8-10.8)
[2016-09-10 06:49] LABS: INR 1.1 (0.9-1.1); PROTHROMBIN TIME 11.4 SEC (9.30-11.50)
[2016-09-10 07:03] LABS: ALANINE AMINOTRANSFERASE 5 U/L (3-33); ALBUMIN/GLOBULIN RATIO 0.9 (1.0-2.7); ASPARTATE AMINO TRANSFERASE 14 U/L (5-40); CALCIUM 8.7 mg/dL (8.6-10.2); CHLORIDE 94 mEQ/L (98-107); CREATININE 2.6 mg/dL (0.5-0.9); HEMOLYSIS 0; MAGNESIUM 2.2 mg/dL (1.7-2.5); PHOSPHORUS 6.1 mg/dL (2.5-4.8); POTASSIUM 4.4 mEQ/L (3.4-4.9); SODIUM 143 mEQ/L (135-145); TOTAL PROTEIN 7.7 g/dL (6.6-8.7)
[2016-09-10 07:15] LABS: ANION GAP 7 (5-15)
[2016-09-10 07:36] LABS: CARBON DIOXIDE 42 mEQ/L (20-30)
[2016-09-10] MEDS ORDERED: Ertapenem 1 GM in NS 55 ML IVPB SCH (09:00)
[2016-09-10] MEDS ORDERED: Miralax 17gm pkt ORAL SCH (09:00)
[2016-09-10] MEDS: Heparin 5000 units/ml inj SUBQ SCH ×2 (09:00→21:32)
--- NOTE | 2016-09-10 11:48 | Diagnostic Imaging Report ---
Indication: GI bleed. History gastroesophageal reflux disease Technique: Exam is extremely limited, due to very limited patient mobility. In addition, effervescent granules were not available to administer to the patient, apparently not available from the supplier at this time. The finally, the fluoroscopy equipment became immobile during the course of the exam. The patient ingested thick liquid barium, and limited spot images of the esophagus and stomach were obtained. Overhead films were also obtained. Total fluoroscopy time 3.8 minutes. Total dose area product 1816 dGycm2 Comparison: None Findings: Managing Supervisor radiograph demonstrates unremarkable bowel gas pattern. There are degenerative spondylosis changes and vascular calcifications The esophagus demonstrates dysmotility. No definite strictures, filling defects, or ulcerations. Evaluation of the stomach is very limited, due to incomplete filling and incomplete coating by contrast. There is a small duodenal diverticulum noted on the overhead images. A single spot image demonstrates a round approximately 1 cm polypoid filling defect within the duodenal bulb. This is not confirmed on subsequent overhead images. Impression: Extremely limited exam, due to patient immobility, unavailability of effervescent granules, and equipment failure during the course of the exam Single spot image demonstrating a polypoid filling defect in the duodenal bulb. Uncertain as to whether this is a real finding, as it is not confirmed on subsequent overhead images. Small duodenal diverticulum Esophageal dysmotility
--- NOTE | 2016-09-10 12:10 | General Progress Note ---
Assessment/Plan Status: unchanged Status Narrative Cr rising Assessment/Plan CKD- and acute renal failure High K Obese COPD , rising Co2 CHF, Diastolic MINA UTI Anemia GI Bleed, GI bleeding At Fib Pulm HTN Low B12 Plan; Hold lasix- ABG Optimize cardiac status- Monitor renal parameters and lytes- Avoid nephrotoxics B12 SQ- PO Folate Subjective ROS Limited/Unobtainable: No Constitutional: Reports: malaise, weakness Respiratory: Reports: shortness of breath Allergies: Coded Allergies: AMOXICILLIN (Verified Allergy, Mild, RASH, 12/25/09) MORPHINE (Unverified Allergy, Unknown, 09/06/16) PENICILLINS (Unverified Allergy, Unknown, 04/06/16) Objective Last 24 Hour Vital Signs Date Time Temp Pulse Resp B/P Pulse Ox O2 Delivery O2 Flow Rate FiO2 09/10/16 08:00 97.8 98 20 113/64 91 Venturi Mask 09/10/16 07:36 94 Venturi Mask 12.0 50 09/10/16 07:36 Venturi Mask 12.0 50 09/10/16 07:26 96 09/10/16 04:00 96 09/10/16 03:53 97.3 91 19 115/57 94 Room Air 09/10/16 00:00 94 09/09/16 23:36 97.5 61 20 118/61 97 Mechanical Ventilator 14.0 09/09/16 23:32 95 09/09/16 20:12 97.7 98 20 128/70 96 Nasal Cannula 15.0 09/09/16 20:03 Venturi Mask 50 09/09/16 20:02 96 Venturi Mask 12.0 50 09/09/16 20:00 136 09/09/16 16:00 97.5 76 18 112/68 93 Venturi Mask 55 09/09/16 16:00 122 09/09/16 12:18 88 96 Intake and Output 09/09/16 09/10/16 19:00 07:00 Intake Total 750 ml 55 ml Balance 750 ml 55 ml Intake Oral 500 ml IV Total 250 ml 55 ml # Voids 1 # Bowel Movements 1 Laboratory Tests 09/10/16 05:10: White Blood Count 6.1, Red Blood Count 3.29L, Hemoglobin 9.3L, Hematocrit 32.1L , Mean Corpuscular Volume 97, Mean Corpuscular Hemoglobin 28.4, Mean Corpuscular Hemoglobin Concent 29.1L, Red Cell Distribution Width 14.6, Platelet Count 137L, Mean Platelet Volume 5.8L, Neutrophils (%) (Auto) 70.7, Lymphocytes (%) (Auto) 17.6L, Monocytes (%) (Auto) 9.6, Eosinophils (%) (Auto) 1.2, Basophils (%) (Auto) 0.8, Prothrombin Time 11.4, Prothromb Time International Ratio 1.1, Activated Partial Thromboplast Time 26, Sodium Level 143, Potassium Level 4.4, Chloride Level 94L, Carbon Dioxide Level 42*H, Anion Gap 7, Blood Urea Nitrogen 44H, Creatinine 2.6H, Estimat Glomerular Filtration Rate , Glucose Level 127H, Calcium Level 8.7, Phosphorus Level 6.1H, Magnesium Level 2.2, Total Bilirubin 0.4, Aspartate Amino Transf (AST/SGOT) 14, Alanine Aminotransferase (ALT/SGPT) 5, Alkaline Phosphatase 67, Total Protein 7.7, Albumin 3.8, Globulin 3.9, Albumin/Globulin Ratio 0.9L Height (Feet): 5 Height (Inches): 4.00 Weight (Pounds): 325 General Appearance: mild distress EENT: other - on O2 mask Cardiovascular: tachycardia Respiratory/Chest: decreased breath sounds Abdomen: distended Objective no change COURTNEY LOPEZ Sep 10, 2016 12:10
[2016-09-10] MEDS: Pantoprazole Inj IVP SCH ×2 (12:30→21:31)
[2016-09-10 13:05] LABS: ABG ALLEN TEST POSITIVE; ABG BASE EXCESS 16.8; ABG PCO2 132.4 mmHg (35.0-45.0)
--- NOTE | 2016-09-10 14:29 | General Progress Note ---
Progress Note Progress Note Ms Kamille Christopher has COPD, morbid obesity, Pickwickian causing chronic respiratory failure with hypercapnea. due to the progression of the chronic respiratory failure and recurrent hospitalization, Pt would benefit from non- invasive ventilation to lower the CO2 level instead of a BIPAP. ARASH MIRANDA Sep 10, 2016 14:29
[2016-09-10 18:11] LABS: ABG ALLEN TEST POSITIVE; ABG BASE EXCESS 13.7; ABG PCO2 102.8 mmHg (35.0-45.0)
--- NOTE | 2016-09-10 18:20 | Pulmonolgy Critical Care Note ---
Critical Care - Asmt/Plan Problems: (1) Acute respiratory failure (2) Atrial fibrillation (3) COPD (chronic obstructive pulmonary disease) (4) CKD (chronic kidney disease) (5) Pickwickian syndrome (6) Morbid obesity Respiratory: monitor respiratory rate, adjust FIO2, CXR Cardiac: continue to monitor HR/BP Renal: F/U I&O, check electrolytes Infectious Disease: check cultures Gastrointestinal: continue feedings/current rate Endocrine: monitor blood sugar, continue sliding scale insulin Hematologic: monitor H/H, transfuse if hgb<8.5 Neurologic: PRN Ativan, keep patient comfortable Prophylaxis: Protonix Notes Reviewed: asphalt distributor tender, renal 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: nurses, consultants, correctional case managermanager trade marketing - Objective Last 24 Hour Vital Signs Date Time Temp Pulse Resp B/P Pulse Ox O2 Delivery O2 Flow Rate FiO2 09/10/16 17:00 88 09/10/16 17:00 97.8 94 21 92/53 90 Venturi Mask 09/10/16 16:51 92 38 98 Facial 40 09/10/16 15:06 79 26 96 Facial 40 09/10/16 12:05 83 31 96 Facial 40 09/10/16 12:00 84 09/10/16 12:00 97.9 95 21 109/62 90 Venturi Mask 09/10/16 08:00 97.8 98 20 113/64 91 Venturi Mask 09/10/16 07:36 94 Venturi Mask 12.0 50 09/10/16 07:36 Venturi Mask 12.0 50 09/10/16 07:26 96 09/10/16 04:00 96 09/10/16 03:53 97.3 91 19 115/57 94 Room Air 09/10/16 00:00 94 09/09/16 23:36 97.5 61 20 118/61 97 Mechanical Ventilator 14.0 09/09/16 23:32 95 09/09/16 20:12 97.7 98 20 128/70 96 Nasal Cannula 15.0 09/09/16 20:03 Venturi Mask 50 09/09/16 20:02 96 Venturi Mask 12.0 50 09/09/16 20:00 136 Status: awake Condition: critical HEENT: atraumatic Heart: HR/BP stable, HR/BP unstable Abdomen: soft, active bowel sounds Extremities: edema Decubiti: location Accucheck: 103 Critical Care - Subjective ROS Limited/Unobtainable: Yes EKG Rhythm: Sinus Rhythm FI02: 40 Sputum Amount: None I&O: Intake and Output 09/09/16 09/10/16 19:00 07:00 Intake Total 750 ml 55 ml Balance 750 ml 55 ml Intake Oral 500 ml IV Total 250 ml 55 ml # Voids 1 # Bowel Movements 1 CXR: no change ARASH MIRANDA Sep 10, 2016 18:20
[2016-09-10] MEDS ORDERED: Miralax 17gm pkt ORAL PRN (18:30)
[2016-09-10] MEDS ORDERED: DuoNeb 0.5-3(2.5)mg/3ml neb HHN PRN (18:30)
--- NOTE | 2016-09-10 18:33 | General Progress Note ---
Assessment/Plan Assessment/Plan Assessment - UGIB - resolved - Anemia-Last EGD/Colon 05/2014 (duodenal AVM- cauterized, mild diverticulosis) - Chronic hypercapnic resp failure - Renal failure - Morbid obesity - CHF - atrial fibrillation Recommendations - UGI noted - Rx empirically with H2B - Monitor H&H - Transfuse PRN - Elevate HOB - push PO Subjective Allergies: Coded Allergies: AMOXICILLIN (Verified Allergy, Mild, RASH, 12/25/09) MORPHINE (Unverified Allergy, Unknown, 09/06/16) PENICILLINS (Unverified Allergy, Unknown, 04/06/16) Subjective seen earlier today subsequently transferred to ICU on BIPAP Objective Last 24 Hour Vital Signs Date Time Temp Pulse Resp B/P Pulse Ox O2 Delivery O2 Flow Rate FiO2 09/10/16 17:00 88 09/10/16 17:00 97.8 94 21 92/53 90 Venturi Mask 09/10/16 16:51 92 38 98 Facial 40 09/10/16 15:06 79 26 96 Facial 40 09/10/16 12:05 83 31 96 Facial 40 09/10/16 12:00 84 09/10/16 12:00 97.9 95 21 109/62 90 Venturi Mask 09/10/16 08:00 97.8 98 20 113/64 91 Venturi Mask 09/10/16 07:36 94 Venturi Mask 12.0 50 09/10/16 07:36 Venturi Mask 12.0 50 09/10/16 07:26 96 09/10/16 04:00 96 09/10/16 03:53 97.3 91 19 115/57 94 Room Air 09/10/16 00:00 94 09/09/16 23:36 97.5 61 20 118/61 97 Mechanical Ventilator 14.0 09/09/16 23:32 95 09/09/16 20:12 97.7 98 20 128/70 96 Nasal Cannula 15.0 09/09/16 20:03 Venturi Mask 50 09/09/16 20:02 96 Venturi Mask 12.0 50 09/09/16 20:00 136 Intake and Output 09/09/16 09/10/16 19:00 07:00 Intake Total 750 ml 55 ml Balance 750 ml 55 ml Intake Oral 500 ml IV Total 250 ml 55 ml # Voids 1 # Bowel Movements 1 Laboratory Tests 09/10/16 05:10: White Blood Count 6.1, Red Blood Count 3.29L, Hemoglobin 9.3L, Hematocrit 32.1L , Mean Corpuscular Volume 97, Mean Corpuscular Hemoglobin 28.4, Mean Corpuscular Hemoglobin Concent 29.1L, Red Cell Distribution Width 14.6, Platelet Count 137L, Mean Platelet Volume 5.8L, Neutrophils (%) (Auto) 70.7, Lymphocytes (%) (Auto) 17.6L, Monocytes (%) (Auto) 9.6, Eosinophils (%) (Auto) 1.2, Basophils (%) (Auto) 0.8, Prothrombin Time 11.4, Prothromb Time International Ratio 1.1, Activated Partial Thromboplast Time 26, Sodium Level 143, Potassium Level 4.4, Chloride Level 94L, Carbon Dioxide Level 42*H, Anion Gap 7, Blood Urea Nitrogen 44H, Creatinine 2.6H, Estimat Glomerular Filtration Rate , Glucose Level 127H, Calcium Level 8.7, Phosphorus Level 6.1H, Magnesium Level 2.2, Total Bilirubin 0.4, Aspartate Amino Transf (AST/SGOT) 14, Alanine Aminotransferase (ALT/SGPT) 5, Alkaline Phosphatase 67, Total Protein 7.7, Albumin 3.8, Globulin 3.9, Albumin/Globulin Ratio 0.9L 09/10/16 12:01: Arterial Blood pH 7.180*L, Arterial Blood Partial Pressure CO2 132.4*H, Arterial Blood Partial Pressure O2 55.9L, Arterial Blood HCO3 49.1H, Arterial Blood Oxygen Saturation 87.0L, Arterial Blood Base Excess 16.8, Mike Test Positive 09/10/16 17:22: Arterial Blood pH 7.250*L, Arterial Blood Partial Pressure CO2 102.8*H, Arterial Blood Partial Pressure O2 67.1L, Arterial Blood HCO3 44.1H, Arterial Blood Oxygen Saturation 91.9L, Arterial Blood Base Excess 13.7, Mike Test Positive Height (Feet): 5 Height (Inches): 4.00 Weight (Pounds): 325 Objective Obese WW NCAT supple Coarse BS, ronchi RR Abd soft NT ND, obese (+) edema Neuro - arousable, responsive BRETT DALE Sep 10, 2016 18:33
[2016-09-10 18:58] LABS: BASOPHILS % (AUTO) 0.9 % (0.0-2.0); LYMPHOCYTES % (AUTO) 15.7 % (20.0-45.0); MEAN CORPUSCULAR HEMOGLOBIN 30.1 PG (27.0-31.0); MEAN CORPUSCULAR HGB CONC 31.1 G/DL (32.0-36.0); MEAN CORPUSCULAR VOLUME 97 FL (80-99); MEAN PLATELET VOLUME 5.6 FL (6.5-10.1); MONOCYTES % (AUTO) 12.5 % (1.0-10.0); NEUTROPHILS % (AUTO) 69.9 % (45.0-75.0); PLATELET COUNT 107 K/UL (150-450); RED BLOOD COUNT 3.23 M/UL (4.20-5.40); RED CELL DISTRIBUTION WIDTH 14.6 % (11.6-14.8); WHITE BLOOD COUNT 5.9 K/UL (4.8-10.8)
--- NOTE | 2016-09-10 19:15 | Consultation ---
DATE OF CONSULTATION: 09/10/2016 INFECTIOUS DISEASES CONSULTATION CONSULTING PHYSICIAN: Alena Chandler M.D. REFERRING PHYSICIAN: An Bryant M.D. REASON FOR CONSULTATION: Urinary tract infection. HISTORY OF PRESENTING ILLNESS: This is a 75-year-old lady with history of respiratory failure, chronic obstructive pulmonary disease, congestive heart failure, and diabetes, who was transferred from a [facility] with coffee-ground emesis to [facility]. A chest x-ray showed bilateral congestion and atelectasis. She was found to have urinary tract infection and an Infectious Diseases consultation has been obtained for antibiotics. PAST MEDICAL HISTORY: 1. History of chronic respiratory failure. 2. History of chronic obstructive pulmonary disease. 3. Obesity. 4. Congestive heart failure. 5. Diabetes. 6. Atrial fibrillation. MEDICATIONS: As an inpatient, she is on folic acid, gabapentin, Femara, MiraLax, ertapenem, Lasix, subcutaneous heparin, Protonix, Pravachol, Restoril, Risperdal, Revatio, , ipratropium and albuterol, Zofran, and polyethylene glycol. ALLERGIES: 1. Penicillin. 2. Morphine. 3. Amoxicillin. SOCIAL HISTORY: She lives in [facility]. Rest of the history is unknown. FAMILY HISTORY: Unknown. REVIEW OF SYSTEMS: Unable to obtain currently. PHYSICAL EXAMINATION: VITAL SIGNS: Temperature of 97.8 degrees, T-max of 98.2, pulse of 98, respiratory rate 20, blood pressure 113/64, and O2 saturation of 91%. HEENT: Pupils equally reactive to light and accommodation. Mouth appears clean with no thrush. NECK: Supple. No adenopathy. No JVD. CARDIOVASCULAR: Regular rate and rhythm. No murmurs. LUNGS: Clear to auscultation bilaterally. No crackles. No wheezes. ABDOMEN: Soft and nontender. No organomegaly. EXTREMITIES: No cyanosis. No clubbing. Edema noted bilaterally. LABORATORY DATA: White count 6.1, hemoglobin 9.3, hematocrit 32.1, MCV 97, and platelet count of 137,000 with neutrophils of 70%. Sodium 143, potassium 4.4, chloride 94, bicarbonate 42, BUN 44, creatinine 2.6, glucose 127, and calcium 8.7. Total bilirubin 0.4. AST 14, ALT 5, and alkaline phosphatase 67. Total protein 7.7. Albumin is 3.8. UA showing 40 to 60 white cells. Urine culture is growing ESBL E. coli, which is ertapenem susceptible, imipenem susceptible, piperacillin and tazobactam intermediate. On 09/06/2016, nasal swab was negative for methicillin resistant Staphylococcus aureus. On 09/06/2016, blood cultures are negative. A 2D echocardiogram showing left ventricular hypertrophy, trace aortic regurgitation, moderate mitral regurgitation, severe tricuspid regurgitation, severe pulmonary hypertension, and mild pulmonary regurgitation. Chest x-ray is showing stable bilateral congestive changes. ASSESSMENT: 1. This is a 75-year-old lady with history of chronic obstructive pulmonary disease, congestive heart failure, and diabetes, who comes in and is found to have Escherichia coli Extended-spectrum beta-lactamases urinary tract infection. 2. Renal failure. 3. Diabetes. PLAN: 1. Continue ertapenem five more days. 2. We will follow up cultures. I would like to thank, Dr. Nolan, for this consultation. Alena Chandler M.D. DR: KIERRA JOB#: [id number] CC: An Bryant M.D.
--- NOTE | 2016-09-10 19:41 | General Progress Note ---
Assessment/Plan Status: deteriorating Assessment/Plan 1. Acute respiratory failure requiring BiPAP with respiratory acidosis --on continuous Bipap -patient now in ICU - Dr Anju llanos 2. Acute gastrointestinal bleed with acute anemia requiring blood transfusion. -s/p BT 4 units, H/H stable, no more episodes of hematemesis -diet was advanced by GI currently on soft diet tolerating diet - follow Dr Rodriguez recommendations, UGI is limited study no ulcers seen, has esophageal dysmotility 3. Acute kidney injury on chronic kidney disease. -stable, renal US noted - follow Dr Zamora recommendations, lasix on hold 4. Hyperkalemia., resolved. 5. Acute diastolic ongestive heart failure. - lasix on hold due to VERONICA - Dr Peralta cardio 6. Atrial fibrillation. - off eliquis for now, at risk for cva 7. Pulmonary hypertension. - on sildanefil 8. Morbid obesity. 9. Chronic obstructive pulmonary disease. continue nebulizer 10. Chronic obstructive sleep apnea. bipap 11. UTI Ecoli ESBL with sepsis: antibioitics per ID, will discuss with ID to [place] antibiotics 12. morbid obesity: diet and weight loss encouraged 13. DJD: will need pt/ot, home health once dc, will order large wheel chair, hospital bed for home use 14. hypotension: may need central line placed to start pressors PT/OT when clinically more stable discussed with ICU nurse Guarded condition Subjective Date patient seen: Sep 10, 2016 ROS Limited/Unobtainable: Yes - patietn is lethargic and unable to get ROS Allergies: Coded Allergies: AMOXICILLIN (Verified Allergy, Mild, RASH, 12/25/09) MORPHINE (Unverified Allergy, Unknown, 09/06/16) PENICILLINS (Unverified Allergy, Unknown, 04/06/16) Subjective The patient was seen and examined at bedside and all new and available data was reviewed in the patients chart. I agree with the above findings, impression and plan. (Patient seen earlier today. Signature stamp does not reflect patient encounter time.). -Manny Nolan MD Objective Last 24 Hour Vital Signs Date Time Temp Pulse Resp B/P Pulse Ox O2 Delivery O2 Flow Rate FiO2 09/10/16 19:04 90 24 97 Facial 45 09/10/16 19:03 Bi-pap 45 09/10/16 19:03 97 Bi-pap 45 09/10/16 18:00 87 22 92/45 95 Bi-pap 45 09/10/16 17:00 88 09/10/16 17:00 97.8 94 21 92/53 90 Bi-pap 45 09/10/16 16:51 92 38 98 Facial 40 09/10/16 15:06 79 26 96 Facial 40 09/10/16 12:05 83 31 96 Facial 40 09/10/16 12:00 84 09/10/16 12:00 97.9 95 21 109/62 90 Venturi Mask 09/10/16 08:00 97.8 98 20 113/64 91 Venturi Mask 09/10/16 07:36 94 Venturi Mask 12.0 50 09/10/16 07:36 Venturi Mask 12.0 50 09/10/16 07:26 96 09/10/16 04:00 96 09/10/16 03:53 97.3 91 19 115/57 94 Room Air 09/10/16 00:00 94 09/09/16 23:36 97.5 61 20 118/61 97 Mechanical Ventilator 14.0 09/09/16 23:32 95 09/09/16 20:12 97.7 98 20 128/70 96 Nasal Cannula 15.0 09/09/16 20:03 Venturi Mask 50 09/09/16 20:02 96 Venturi Mask 12.0 50 09/09/16 20:00 136 Intake and Output 09/09/16 09/10/16 19:00 07:00 Intake Total 750 ml 55 ml Balance 750 ml 55 ml Intake Oral 500 ml IV Total 250 ml 55 ml # Voids 1 # Bowel Movements 1 Laboratory Tests 09/10/16 05:10: White Blood Count 6.1, Red Blood Count 3.29L, Hemoglobin 9.3L, Hematocrit 32.1L , Mean Corpuscular Volume 97, Mean Corpuscular Hemoglobin 28.4, Mean Corpuscular Hemoglobin Concent 29.1L, Red Cell Distribution Width 14.6, Platelet Count 137L, Mean Platelet Volume 5.8L, Neutrophils (%) (Auto) 70.7, Lymphocytes (%) (Auto) 17.6L, Monocytes (%) (Auto) 9.6, Eosinophils (%) (Auto) 1.2, Basophils (%) (Auto) 0.8, Prothrombin Time 11.4, Prothromb Time International Ratio 1.1, Activated Partial Thromboplast Time 26, Sodium Level 143, Potassium Level 4.4, Chloride Level 94L, Carbon Dioxide Level 42*H, Anion Gap 7, Blood Urea Nitrogen 44H, Creatinine 2.6H, Estimat Glomerular Filtration Rate , Glucose Level 127H, Calcium Level 8.7, Phosphorus Level 6.1H, Magnesium Level 2.2, Total Bilirubin 0.4, Aspartate Amino Transf (AST/SGOT) 14, Alanine Aminotransferase (ALT/SGPT) 5, Alkaline Phosphatase 67, Total Protein 7.7, Albumin 3.8, Globulin 3.9, Albumin/Globulin Ratio 0.9L 09/10/16 12:01: Arterial Blood pH 7.180*L, Arterial Blood Partial Pressure CO2 132.4*H, Arterial Blood Partial Pressure O2 55.9L, Arterial Blood HCO3 49.1H, Arterial Blood Oxygen Saturation 87.0L, Arterial Blood Base Excess 16.8, Mike Test Positive 09/10/16 17:22: Arterial Blood pH 7.250*L, Arterial Blood Partial Pressure CO2 102.8*H, Arterial Blood Partial Pressure O2 67.1L, Arterial Blood HCO3 44.1H, Arterial Blood Oxygen Saturation 91.9L, Arterial Blood Base Excess 13.7, Mike Test Positive 09/10/16 18:41: White Blood Count 5.9, Red Blood Count 3.23L, Hemoglobin 9.7L, Hematocrit 31.2L , Mean Corpuscular Volume 97, Mean Corpuscular Hemoglobin 30.1, Mean Corpuscular Hemoglobin Concent 31.1L, Red Cell Distribution Width 14.6, Platelet Count 107L, Mean Platelet Volume 5.6L, Neutrophils (%) (Auto) 69.9, Lymphocytes (%) (Auto) 15.7L, Monocytes (%) (Auto) 12.5H, Eosinophils (%) (Auto ) 1.0, Basophils (%) (Auto) 0.9 Height (Feet): 5 Height (Inches): 4.00 Weight (Pounds): 325 General Appearance: no apparent distress, alert, lethargic, moderate distress, morbidly obese EENT: PERRL/EOMI Neck: non-tender Cardiovascular: regular rhythm Respiratory/Chest: lungs clear Abdomen: normal bowel sounds Extremities: swelling Edema: no edema noted Arm (L), no edema noted Arm (R), 2+ Leg (L), 2+ Leg (R), 2+ Pedal (L), 2+ Pedal (R), 2+ Generalized Edema: moderate edema, pitting Neurologic: responsive, motor weakness Skin: warm/dry Manny Nolan MD Sep 10, 2016 19:41
--- NOTE | 2016-09-10 22:00 | Progress Note ---
DATE: 09/10/2016 SUBJECTIVE: The patient is on BiPAP, sleep, arousable. Still has some degree of confusion. She is alert and oriented to self, place, and situation she is in. Worried about her current medical condition. MENTAL STATUS EXAM: The patient is alert and oriented x3. Mood is neutral. Affect is constricted. Congruent with mood. Thought process is concrete. Thought content, no suicidal or homicidal ideation. Cognition is impaired. ASSESSMENT: Delirium due to general medical condition, which is mild and improving. PLAN: The patient will be continued on current medication. Provide the patient with supportive therapy and reality orientation. Eda Pena M.D. DR: MICHELLE JOB#: [id number] CC:
[2016-09-10] MEDS ORDERED: NS 275ml ONE (22:50)
[2016-09-10] MEDS ORDERED: Tubing IV Blood Pump IV ONE (22:50)
[2016-09-11] VITALS (24 sets, daily range): BP systolic 80–111; BP diastolic 35–66
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
[2016-09-11 05:43] LABS: BASOPHILS % (AUTO) 0.6 % (0.0-2.0); EOSINOPHILS % (AUTO) 1.6 % (0.0-3.0); LYMPHOCYTES % (AUTO) 15.1 % (20.0-45.0); MEAN CORPUSCULAR HEMOGLOBIN 29.1 PG (27.0-31.0); MEAN CORPUSCULAR HGB CONC 30.1 G/DL (32.0-36.0); MEAN CORPUSCULAR VOLUME 96 FL (80-99); MONOCYTES % (AUTO) 8.8 % (1.0-10.0); NEUTROPHILS % (AUTO) 73.8 % (45.0-75.0); PLATELET COUNT 116 K/UL (150-450); RED BLOOD COUNT 2.97 M/UL (4.20-5.40); RED CELL DISTRIBUTION WIDTH 14.6 % (11.6-14.8); WHITE BLOOD COUNT 5.1 K/UL (4.8-10.8)
[2016-09-11] MEDS: Revatio 20mg tab ORAL SCH ×3 (06:00→21:49)
[2016-09-11 06:02] LABS: ALANINE AMINOTRANSFERASE 5 U/L (3-33); ALBUMIN/GLOBULIN RATIO 0.9 (1.0-2.7); ASPARTATE AMINO TRANSFERASE 9 U/L (5-40); CALCIUM 8.2 mg/dL (8.6-10.2); CHLORIDE 95 mEQ/L (98-107); CREATININE 2.7 mg/dL (0.5-0.9); CRP QUANT 2.1 mg/dL (< 0.5); HEMOLYSIS 4; MAGNESIUM 2.1 mg/dL (1.7-2.5); PHOSPHORUS 6.1 mg/dL (2.5-4.8); POTASSIUM 4.2 mEQ/L (3.4-4.9); SODIUM 143 mEQ/L (135-145); TOTAL PROTEIN 6.4 g/dL (6.6-8.7); URIC ACID 8.2 mg/dL (3.0-7.5)
[2016-09-11 06:07] LABS: ANION GAP 8 (5-15); CARBON DIOXIDE 40 mEQ/L (20-30)
[2016-09-11] MEDS: Heparin 5000 units/ml inj SUBQ SCH ×2 (09:00→20:58)
[2016-09-11] MEDS: Pantoprazole Inj IVP SCH ×2 (09:02→21:00)
[2016-09-11] MEDS: Miralax 17gm pkt ORAL SCH (09:03)
[2016-09-11] MEDS: Ertapenem 1 GM in NS 55 ML IVPB SCH (09:04)
--- NOTE | 2016-09-11 09:41 | General Progress Note ---
Assessment/Plan Problem List: (1) Positive occult stool blood test ICD Codes: R19.5 - Other fecal abnormalities SNOMED: 68715132, 802387346 (2) Hypercapnia ICD Codes: R06.89 - Other abnormalities of breathing SNOMED: 36970123 (3) Anemia ICD Codes: D64.9 - Anemia, unspecified SNOMED: 213949705 Qualifiers: Qualified Codes: D64.9 - Anemia, unspecified (4) CHF (congestive heart failure) ICD Codes: I50.9 - Heart failure, unspecified SNOMED: 97001045 Qualifiers: Qualified Codes: I50.42 - Chronic combined systolic (congestive) and diastolic (congestive) heart failure (5) COPD (chronic obstructive pulmonary disease) ICD Codes: J44.9 - Chronic obstructive pulmonary disease, unspecified SNOMED: 66236380 Qualifiers: Qualified Codes: J44.9 - Chronic obstructive pulmonary disease, unspecified (6) CKD (chronic kidney disease) ICD Codes: N18.9 - Chronic kidney disease, unspecified SNOMED: 962370867 Qualifiers: Qualified Codes: N18.9 - Chronic kidney disease, unspecified (7) Atrial fibrillation ICD Codes: I48.91 - Unspecified atrial fibrillation SNOMED: 50065246 (8) Morbid obesity ICD Codes: E66.01 - Morbid (severe) obesity due to excess calories SNOMED: 250746874, 79433468960754 Assessment/Plan monitor H&H prn blood transfusion high risk for any GI procedures at this time GI prophylaxis fu pulm Subjective ROS Limited/Unobtainable: Yes Allergies: Coded Allergies: AMOXICILLIN (Verified Allergy, Mild, RASH, 12/25/09) MORPHINE (Unverified Allergy, Unknown, 09/06/16) PENICILLINS (Unverified Allergy, Unknown, 04/06/16) Subjective on BIPAP Objective Last 24 Hour Vital Signs Date Time Temp Pulse Resp B/P Pulse Ox O2 Delivery O2 Flow Rate FiO2 09/11/16 07:23 Bi-pap 45 09/11/16 07:22 87 21 96 Facial 45 09/11/16 07:22 96 Bi-pap 45 09/11/16 06:00 80 23 89/47 94 Bi-pap 45 09/11/16 05:05 90 21 96 Facial 45 09/11/16 05:00 82 23 88/48 94 Bi-pap 45 09/11/16 04:00 82 09/11/16 04:00 98.0 82 23 85/48 94 Bi-pap 45 09/11/16 03:19 91 23 100 Facial 45 09/11/16 03:00 83 23 80/35 98 Bi-pap 45 09/11/16 02:00 85 23 92/52 98 Bi-pap 45 09/11/16 01:02 87 25 93 Facial 45 09/11/16 01:00 86 24 87/46 99 Bi-pap 45 09/11/16 00:00 98.2 85 23 90/47 93 Bi-pap 45 09/11/16 00:00 86 09/10/16 23:03 94 23 95 Facial 45 09/10/16 23:00 89 23 100/56 93 Bi-pap 45 09/10/16 22:00 86 24 111/62 95 Bi-pap 45 09/10/16 21:03 88 22 96 Facial 45 09/10/16 21:00 86 24 109/62 96 Bi-pap 45 09/10/16 20:00 87 09/10/16 20:00 98.0 88 25 98/50 93 Bi-pap 45 09/10/16 19:04 90 24 97 Facial 45 09/10/16 19:03 Bi-pap 45 09/10/16 19:03 97 Bi-pap 45 09/10/16 18:00 87 22 92/45 95 Bi-pap 45 09/10/16 17:00 88 09/10/16 17:00 97.8 94 21 92/53 90 Bi-pap 45 09/10/16 16:51 92 38 98 Facial 40 09/10/16 15:06 79 26 96 Facial 40 09/10/16 12:05 83 31 96 Facial 40 09/10/16 12:00 84 09/10/16 12:00 97.9 95 21 109/62 90 Venturi Mask Intake and Output 09/10/16 09/11/16 19:00 07:00 Intake Total 55 ml Output Total 200 ml 690 ml Balance -145 ml -690 ml IV Total 55 ml Output Urine Total 200 ml 690 ml Stool Total 0 ml # Voids 2 1 Laboratory Tests 09/10/16 12:01: Arterial Blood pH 7.180*L, Arterial Blood Partial Pressure CO2 132.4*H, Arterial Blood Partial Pressure O2 55.9L, Arterial Blood HCO3 49.1H, Arterial Blood Oxygen Saturation 87.0L, Arterial Blood Base Excess 16.8, Mike Test Positive 09/10/16 17:22: Arterial Blood pH 7.250*L, Arterial Blood Partial Pressure CO2 102.8*H, Arterial Blood Partial Pressure O2 67.1L, Arterial Blood HCO3 44.1H, Arterial Blood Oxygen Saturation 91.9L, Arterial Blood Base Excess 13.7, Mike Test Positive 09/10/16 18:41: White Blood Count 5.9, Red Blood Count 3.23L, Hemoglobin 9.7L, Hematocrit 31.2L , Mean Corpuscular Volume 97, Mean Corpuscular Hemoglobin 30.1, Mean Corpuscular Hemoglobin Concent 31.1L, Red Cell Distribution Width 14.6, Platelet Count 107L, Mean Platelet Volume 5.6L, Neutrophils (%) (Auto) 69.9, Lymphocytes (%) (Auto) 15.7L, Monocytes (%) (Auto) 12.5H, Eosinophils (%) (Auto ) 1.0, Basophils (%) (Auto) 0.9 09/11/16 04:57: White Blood Count 5.1, Red Blood Count 2.97L, Hemoglobin 8.6L, Hematocrit 28.6L , Mean Corpuscular Volume 96, Mean Corpuscular Hemoglobin 29.1, Mean Corpuscular Hemoglobin Concent 30.1L, Red Cell Distribution Width 14.6, Platelet Count 116L, Mean Platelet Volume 6.0L, Neutrophils (%) (Auto) 73.8, Lymphocytes (%) (Auto) 15.1L, Monocytes (%) (Auto) 8.8, Eosinophils (%) (Auto) 1.6, Basophils (%) (Auto) 0.6, Sodium Level 143, Potassium Level 4.2, Chloride Level 95L, Carbon Dioxide Level 40H, Anion Gap 8, Blood Urea Nitrogen 47H, Creatinine 2.7H, Estimat Glomerular Filtration Rate , Glucose Level 96, Uric Acid 8.2H, Calcium Level 8.2L, Phosphorus Level 6.1H, Magnesium Level 2.1, Total Bilirubin 0.3, Aspartate Amino Transf (AST/SGOT) 9, Alanine Aminotransferase (ALT/SGPT) 5, Alkaline Phosphatase 53, C-Reactive Protein, Quantitative 2.1H, Pro-B-Type Natriuretic Peptide 48302N, Total Protein 6.4L, Albumin 3.1L, Globulin 3.3, Albumin/Globulin Ratio 0.9L Height (Feet): 5 Height (Inches): 4.00 Weight (Pounds): 322 General Appearance: mild distress EENT: normal ENT inspection Neck: supple Cardiovascular: normal rate Respiratory/Chest: decreased breath sounds Abdomen: normal bowel sounds, non tender, soft Extremities: non-tender RUDDY RODRIGUEZ Sep 11, 2016 09:41
[2016-09-11] MEDS: Nystatin Powder 100,000 units/gm 15gm TOPIC SCH ×3 (10:00→17:32)
[2016-09-11 10:06] LABS: ABG ALLEN TEST POSITIVE; ABG BASE EXCESS 12.9; ABG PCO2 84.7 mmHg (35.0-45.0)
--- NOTE | 2016-09-11 12:27 | General Progress Note ---
Assessment/Plan Status: unchanged Status Narrative now in ICU on Bipap Cr not lower Assessment/Plan CKD- and acute renal failure Acute respiratory failure High K Obese COPD , rising Co2 CHF, Diastolic MINA UTI Anemia GI Bleed, GI bleeding At Fib Pulm HTN Low B12 Plan; BIPAP Hold lasix- ABG Optimize cardiac status- Monitor renal parameters and lytes- Avoid nephrotoxics B12 SQ- PO Folate Subjective ROS Limited/Unobtainable: No Constitutional: Reports: malaise Allergies: Coded Allergies: AMOXICILLIN (Verified Allergy, Mild, RASH, 12/25/09) MORPHINE (Unverified Allergy, Unknown, 09/06/16) PENICILLINS (Unverified Allergy, Unknown, 04/06/16) Objective Last 24 Hour Vital Signs Date Time Temp Pulse Resp B/P Pulse Ox O2 Delivery O2 Flow Rate FiO2 09/11/16 11:00 85 23 94/46 96 Bi-pap 45 09/11/16 10:47 87 20 100 Facial 45 09/11/16 10:00 90 23 99/66 97 Bi-pap 45 09/11/16 09:28 88 27 100 Facial 45 09/11/16 09:00 91 21 110/59 97 Bi-pap 45 09/11/16 08:29 88 09/11/16 08:00 87 23 111/59 93 Bi-pap 45 09/11/16 08:00 87 09/11/16 07:23 Bi-pap 45 09/11/16 07:22 87 21 96 Facial 45 09/11/16 07:22 96 Bi-pap 45 09/11/16 07:00 88 23 84/43 94 Bi-pap 45 09/11/16 06:00 80 23 89/47 94 Bi-pap 45 09/11/16 05:05 90 21 96 Facial 45 09/11/16 05:00 82 23 88/48 94 Bi-pap 45 09/11/16 04:00 82 09/11/16 04:00 98.0 82 23 85/48 94 Bi-pap 45 09/11/16 03:19 91 23 100 Facial 45 09/11/16 03:00 83 23 80/35 98 Bi-pap 45 09/11/16 02:00 85 23 92/52 98 Bi-pap 45 09/11/16 01:02 87 25 93 Facial 45 09/11/16 01:00 86 24 87/46 99 Bi-pap 45 09/11/16 00:00 98.2 85 23 90/47 93 Bi-pap 45 09/11/16 00:00 86 09/10/16 23:03 94 23 95 Facial 45 09/10/16 23:00 89 23 100/56 93 Bi-pap 45 09/10/16 22:00 86 24 111/62 95 Bi-pap 45 09/10/16 21:03 88 22 96 Facial 45 09/10/16 21:00 86 24 109/62 96 Bi-pap 45 09/10/16 20:00 87 09/10/16 20:00 98.0 88 25 98/50 93 Bi-pap 45 09/10/16 19:04 90 24 97 Facial 45 09/10/16 19:03 Bi-pap 45 09/10/16 19:03 97 Bi-pap 45 09/10/16 18:00 87 22 92/45 95 Bi-pap 45 09/10/16 17:00 88 09/10/16 17:00 97.8 94 21 92/53 90 Bi-pap 45 09/10/16 16:51 92 38 98 Facial 40 09/10/16 15:06 79 26 96 Facial 40 Intake and Output 09/10/16 09/11/16 19:00 07:00 Intake Total 55 ml Output Total 200 ml 690 ml Balance -145 ml -690 ml IV Total 55 ml Output Urine Total 200 ml 690 ml Stool Total 0 ml # Voids 2 1 Laboratory Tests 09/10/16 17:22: Arterial Blood pH 7.250*L, Arterial Blood Partial Pressure CO2 102.8*H, Arterial Blood Partial Pressure O2 67.1L, Arterial Blood HCO3 44.1H, Arterial Blood Oxygen Saturation 91.9L, Arterial Blood Base Excess 13.7, Mike Test Positive 09/10/16 18:41: White Blood Count 5.9, Red Blood Count 3.23L, Hemoglobin 9.7L, Hematocrit 31.2L , Mean Corpuscular Volume 97, Mean Corpuscular Hemoglobin 30.1, Mean Corpuscular Hemoglobin Concent 31.1L, Red Cell Distribution Width 14.6, Platelet Count 107L, Mean Platelet Volume 5.6L, Neutrophils (%) (Auto) 69.9, Lymphocytes (%) (Auto) 15.7L, Monocytes (%) (Auto) 12.5H, Eosinophils (%) (Auto ) 1.0, Basophils (%) (Auto) 0.9 09/11/16 04:57: White Blood Count 5.1, Red Blood Count 2.97L, Hemoglobin 8.6L, Hematocrit 28.6L , Mean Corpuscular Volume 96, Mean Corpuscular Hemoglobin 29.1, Mean Corpuscular Hemoglobin Concent 30.1L, Red Cell Distribution Width 14.6, Platelet Count 116L, Mean Platelet Volume 6.0L, Neutrophils (%) (Auto) 73.8, Lymphocytes (%) (Auto) 15.1L, Monocytes (%) (Auto) 8.8, Eosinophils (%) (Auto) 1.6, Basophils (%) (Auto) 0.6, Sodium Level 143, Potassium Level 4.2, Chloride Level 95L, Carbon Dioxide Level 40H, Anion Gap 8, Blood Urea Nitrogen 47H, Creatinine 2.7H, Estimat Glomerular Filtration Rate , Glucose Level 96, Uric Acid 8.2H, Calcium Level 8.2L, Phosphorus Level 6.1H, Magnesium Level 2.1, Total Bilirubin 0.3, Aspartate Amino Transf (AST/SGOT) 9, Alanine Aminotransferase (ALT/SGPT) 5, Alkaline Phosphatase 53, C-Reactive Protein, Quantitative 2.1H, Pro-B-Type Natriuretic Peptide 77894H, Total Protein 6.4L, Albumin 3.1L, Globulin 3.3, Albumin/Globulin Ratio 0.9L 09/11/16 09:54: Arterial Blood pH 7.310L, Arterial Blood Partial Pressure CO2 84.7*H, Arterial Blood Partial Pressure O2 85.5, Arterial Blood HCO3 41.8H, Arterial Blood Oxygen Saturation 96.0, Arterial Blood Base Excess 12.9, Mike Test Positive Height (Feet): 5 Height (Inches): 4.00 Weight (Pounds): 322 General Appearance: other - on BIPAP Cardiovascular: normal rate Respiratory/Chest: decreased breath sounds Abdomen: distended, other - obese Objective no change COURTNEY LOPEZ Sep 11, 2016 12:27
--- NOTE | 2016-09-11 14:40 | Pulmonolgy Critical Care Note ---
Critical Care - Asmt/Plan Assessment/Plan: ASSESSMENT acute on chronic hypercapnic respiratory failure, requiring BiPAP acute GI bleeding anemia s/p blood transfusion CKD acute diastolic CHF A fib UTI with E coli ESBL COPD MINA Pickwickian syndrome morbid obesity severe pulmonary HTN moderate MR severe TR B 12 deficiency anemia-replaced hyperkalemia -resolved PLAN OF CARE ICU BiPAP titrate settings to keep sat above 92 ABG and CXR in am pulmonary toilet prn ECHO with EF 60-65% and RVSP of 94 c/w severe pulmonary HTN as well as evidence of moderate MR and severe TR cardio follows lipid panel stable troponin x 3 negative Eliquis on hold due to anemia Lasix on hold due to ARF and rising creat continue Sildenafil watch BP closely GI follows no further episodes of upper GI bleeding GI prophylaxis tolerates diet a/emetic prn upper G series with esophageal dysmotility per GI - hold GI procedures for now- high risk abx, ID follows urine cx + E coli ESBL, blood cx preliminary negative nephro follows, creat w/out significant changes renal US negative Venous Duplex BLE negative SCD monitor renal parameters, lytes avoid nephrotoxic hyperkalemia resolved after Kayexalate treatment case discussed and evaluated by supervising physician Critical Care - Objective Last 24 Hour Vital Signs Date Time Temp Pulse Resp B/P Pulse Ox O2 Delivery O2 Flow Rate FiO2 09/11/16 12:34 95 24 95 Facial 45 09/11/16 12:00 88 24 95/45 96 Bi-pap 45 09/11/16 11:00 85 23 94/46 96 Bi-pap 45 09/11/16 10:47 87 20 100 Facial 45 09/11/16 10:00 90 23 99/66 97 Bi-pap 45 09/11/16 09:28 88 27 100 Facial 45 09/11/16 09:00 91 21 110/59 97 Bi-pap 45 09/11/16 08:29 88 09/11/16 08:00 87 23 111/59 93 Bi-pap 45 09/11/16 08:00 87 09/11/16 07:23 Bi-pap 45 09/11/16 07:22 87 21 96 Facial 45 09/11/16 07:22 96 Bi-pap 45 09/11/16 07:00 88 23 84/43 94 Bi-pap 45 09/11/16 06:00 80 23 89/47 94 Bi-pap 45 09/11/16 05:05 90 21 96 Facial 45 09/11/16 05:00 82 23 88/48 94 Bi-pap 45 09/11/16 04:00 82 09/11/16 04:00 98.0 82 23 85/48 94 Bi-pap 45 09/11/16 03:19 91 23 100 Facial 45 09/11/16 03:00 83 23 80/35 98 Bi-pap 45 09/11/16 02:00 85 23 92/52 98 Bi-pap 45 09/11/16 01:02 87 25 93 Facial 45 09/11/16 01:00 86 24 87/46 99 Bi-pap 45 09/11/16 00:00 98.2 85 23 90/47 93 Bi-pap 45 09/11/16 00:00 86 09/10/16 23:03 94 23 95 Facial 45 09/10/16 23:00 89 23 100/56 93 Bi-pap 45 09/10/16 22:00 86 24 111/62 95 Bi-pap 45 09/10/16 21:03 88 22 96 Facial 45 09/10/16 21:00 86 24 109/62 96 Bi-pap 45 09/10/16 20:00 87 09/10/16 20:00 98.0 88 25 98/50 93 Bi-pap 45 09/10/16 19:04 90 24 97 Facial 45 09/10/16 19:03 Bi-pap 45 09/10/16 19:03 97 Bi-pap 45 09/10/16 18:00 87 22 92/45 95 Bi-pap 45 09/10/16 17:00 88 09/10/16 17:00 97.8 94 21 92/53 90 Bi-pap 45 09/10/16 16:51 92 38 98 Facial 40 09/10/16 15:06 79 26 96 Facial 40 Status: awake, other - on BiPAP 21/06 45% morbidly obese female, awake , alert, responsive, weak Condition: critical HEENT: atraumatic, normocephalic, other - BiPAP mask on Heart: HR/BP stable, other - distant heart sounds Abdomen: soft, non-tender - obese Extremities: other - edema +2, bilateral leg skin changes due to stasis, L>R Critical Care - Subjective ROS Limited/Unobtainable: Yes Interval Events: transferred to ICU due to severe hypercapnic respiratory failure, placed on BiPAP this am slightly better ABG with improvement in CO2 CO2 still significantly elevated ( but element of chronic CO2 retention present as well) Condition: critical EKG Rhythm: Sinus Rhythm FI02: 45 Sputum Amount: None I&O: Intake and Output 09/10/16 09/11/16 19:00 07:00 Intake Total 55 ml Output Total 200 ml 690 ml Balance -145 ml -690 ml IV Total 55 ml Output Urine Total 200 ml 690 ml Stool Total 0 ml # Voids 2 1 Rojas (Yamilethmartina)Jaquelin NP Sep 11, 2016 14:40
[2016-09-11] MEDS ORDERED: NS 275ml ONE (15:35)
--- NOTE | 2016-09-11 18:20 | Cardiology Progress Note ---
Assessment/Plan Assessment/Plan 1. Coffee-ground emesis. 2. Anemia, worsened, chronic. 3. Gastrointestinal bleed. 4. Permanent atrial fibrillation, on anticoagulation with Eliquis. 5. History of pulmonary hypertension of significant degree, treated with sildenafil. 6. Systemic hypertension. 7. Chronic renal insufficiency. 8. Diabetes mellitus 9. repiratotry acdosis 10. hypotension hgb noted tele noted bp seem low off eliquis for now tele noted afib vr ok hard to tell her inttravscualr voluem status on exma but since she has lwo urin output i will give he a fludi challenge Subjective Cardiovascular: Denies: chest pain, lightheadedness Gastrointestinal/Abdominal: Denies: abdominal pain Genitourinary: Denies: burning Subjective on bipap sleepy Objective Last 24 Hour Vital Signs Date Time Temp Pulse Resp B/P Pulse Ox O2 Delivery O2 Flow Rate FiO2 09/11/16 17:16 83 27 87 Full Face 50 09/11/16 17:00 95 21 103/47 97 Bi-pap 45 09/11/16 16:00 82 21 92/47 95 Bi-pap 45 09/11/16 15:40 88 09/11/16 15:00 97.8 87 24 101/52 97 Bi-pap 45 09/11/16 14:59 Full Face 09/11/16 14:42 94 27 95 Facial 45 09/11/16 14:00 87 23 96/49 95 Bi-pap 45 09/11/16 13:00 92 21 108/61 96 Bi-pap 45 09/11/16 12:38 94 09/11/16 12:34 95 24 95 Facial 45 09/11/16 12:00 88 24 95/45 96 Bi-pap 45 09/11/16 11:00 85 23 94/46 96 Bi-pap 45 09/11/16 10:47 87 20 100 Facial 45 09/11/16 10:00 90 23 99/66 97 Bi-pap 45 09/11/16 09:28 88 27 100 Facial 45 09/11/16 09:00 97.9 91 21 110/59 97 Bi-pap 45 09/11/16 08:29 88 09/11/16 08:00 87 23 111/59 93 Bi-pap 45 09/11/16 08:00 87 09/11/16 07:23 Bi-pap 45 09/11/16 07:22 87 21 96 Facial 45 09/11/16 07:22 96 Bi-pap 45 09/11/16 07:00 88 23 84/43 94 Bi-pap 45 09/11/16 06:00 80 23 89/47 94 Bi-pap 45 09/11/16 05:05 90 21 96 Facial 45 09/11/16 05:00 82 23 88/48 94 Bi-pap 45 09/11/16 04:00 82 09/11/16 04:00 98.0 82 23 85/48 94 Bi-pap 45 09/11/16 03:19 91 23 100 Facial 45 09/11/16 03:00 83 23 80/35 98 Bi-pap 45 09/11/16 02:00 85 23 92/52 98 Bi-pap 45 09/11/16 01:02 87 25 93 Facial 45 09/11/16 01:00 86 24 87/46 99 Bi-pap 45 09/11/16 00:00 98.2 85 23 90/47 93 Bi-pap 45 09/11/16 00:00 86 09/10/16 23:03 94 23 95 Facial 45 09/10/16 23:00 89 23 100/56 93 Bi-pap 45 09/10/16 22:00 86 24 111/62 95 Bi-pap 45 09/10/16 21:03 88 22 96 Facial 45 09/10/16 21:00 86 24 109/62 96 Bi-pap 45 09/10/16 20:00 87 09/10/16 20:00 98.0 88 25 98/50 93 Bi-pap 45 09/10/16 19:04 90 24 97 Facial 45 09/10/16 19:03 Bi-pap 45 09/10/16 19:03 97 Bi-pap 45 General Appearance: no apparent distress, other - on bipap easily arousable but falls asleep equally easy Neck: supple Cardiovascular: irregularly irregular Respiratory/Chest: crackles/rales Abdomen: normal bowel sounds, non tender, soft Extremities: moderate edema Intake and Output 09/10/16 09/11/16 19:00 07:00 Intake Total 55 ml Output Total 200 ml 690 ml Balance -145 ml -690 ml IV Total 55 ml Output Urine Total 200 ml 690 ml Stool Total 0 ml # Voids 2 1 Laboratory Tests Test 09/10/16 18:41 09/11/16 04:57 09/11/16 09:54 White Blood Count 5.9 K/UL (4.8-10.8) 5.1 K/UL (4.8-10.8) Red Blood Count 3.23 M/UL (4.20-5.40) L 2.97 M/UL (4.20-5.40) L Hemoglobin 9.7 G/DL (12.0-16.0) L 8.6 G/DL (12.0-16.0) L Hematocrit 31.2 % (37.0-47.0) L 28.6 % (37.0-47.0) L Mean Corpuscular Volume 97 FL (80-99) 96 FL (80-99) Mean Corpuscular Hemoglobin 30.1 PG (27.0-31.0) 29.1 PG (27.0-31.0) Mean Corpuscular Hemoglobin Concent 31.1 G/DL (32.0-36.0) L 30.1 G/DL (32.0-36.0) L Red Cell Distribution Width 14.6 % (11.6-14.8) 14.6 % (11.6-14.8) Platelet Count 107 K/UL (150-450) L 116 K/UL (150-450) L Mean Platelet Volume 5.6 FL (6.5-10.1) L 6.0 FL (6.5-10.1) L Neutrophils (%) (Auto) 69.9 % (45.0-75.0) 73.8 % (45.0-75.0) Lymphocytes (%) (Auto) 15.7 % (20.0-45.0) L 15.1 % (20.0-45.0) L Monocytes (%) (Auto) 12.5 % (1.0-10.0) H 8.8 % (1.0-10.0) Eosinophils (%) (Auto) 1.0 % (0.0-3.0) 1.6 % (0.0-3.0) Basophils (%) (Auto) 0.9 % (0.0-2.0) 0.6 % (0.0-2.0) Sodium Level 143 mEQ/L (135-145) Potassium Level 4.2 mEQ/L (3.4-4.9) Chloride Level 95 mEQ/L (98-107) L Carbon Dioxide Level 40 mEQ/L (20-30) H Anion Gap 8 (5-15) Blood Urea Nitrogen 47 mg/dL (7-23) H Creatinine 2.7 mg/dL (0.5-0.9) H Estimat Glomerular Filtration Rate mL/min (>60) Glucose Level 96 mg/dL (74-106) Uric Acid 8.2 mg/dL (3.0-7.5) H Calcium Level 8.2 mg/dL (8.6-10.2) L Phosphorus Level 6.1 mg/dL (2.5-4.8) H Magnesium Level 2.1 mg/dL (1.7-2.5) Total Bilirubin 0.3 mg/dL (0.0-1.2) Aspartate Amino Transf (AST/SGOT) 9 U/L (5-40) Alanine Aminotransferase (ALT/SGPT) 5 U/L (3-33) Alkaline Phosphatase 53 U/L (35-104) C-Reactive Protein, Quantitative 2.1 mg/dL (< 0.5) H Pro-B-Type Natriuretic Peptide 49638 pg/mL (0-125) H Total Protein 6.4 g/dL (6.6-8.7) L Albumin 3.1 g/dL (3.5-5.2) L Globulin 3.3 g/dL Albumin/Globulin Ratio 0.9 (1.0-2.7) L Arterial Blood pH 7.310 (7.350-7.450) Arterial Blood Partial Pressure CO2 84.7 mmHg (35.0-45.0) *H Arterial Blood Partial Pressure O2 85.5 mmHg (75.0-100.0) Arterial Blood HCO3 41.8 mmol/L (22.0-26.0) H Arterial Blood Oxygen Saturation 96.0 % (92.0-98.0) Arterial Blood Base Excess 12.9 Mike Test Positive BRIANA TELLES Sep 11, 2016 18:20
[2016-09-11] MEDS ORDERED: NS 250 ML IVPB ONE (18:30)
--- NOTE | 2016-09-11 22:30 | General Progress Note ---
Assessment/Plan Status: stable Assessment/Plan 1. Acute respiratory failure requiring BiPAP with respiratory acidosis --on continuous Bipap -patient now in ICU - Dr Anju llanos 2. Acute gastrointestinal bleed with acute anemia requiring blood transfusion. -s/p BT 4 units, H/H stable, no more episodes of hematemesis -diet was advanced by GI currently on soft diet tolerating diet - follow Dr Rodriguez recommendations, UGI is limited study no ulcers seen, has esophageal dysmotility -continue PPI 3. Acute kidney injury on chronic kidney disease. -stable, renal US noted - follow Dr Zamora recommendations, lasix on hold 4. Hyperkalemia., resolved. 5. Acute diastolic ongestive heart failure. - lasix on hold due to VERONICA, consider lasix drip,chest xray in am - Dr Peralta cardio 6. Atrial fibrillation. - off eliquis for now, at risk for cva 7. Pulmonary hypertension. - on sildanefil 8. Morbid obesity. 9. Chronic obstructive pulmonary disease. continue nebulizer 10. Chronic obstructive sleep apnea. bipap 11. UTI Ecoli ESBL with sepsis: antibioitics per ID 12. morbid obesity: diet and weight loss encouraged 13. DJD: will need pt/ot, home health once dc, will order large wheel chair, hospital bed for home use 14. hypotension: improved PT/OT when clinically more stable discussed with ICU nurse Guarded condition Subjective Date patient seen: Sep 11, 2016 Allergies: Coded Allergies: AMOXICILLIN (Verified Allergy, Mild, RASH, 12/25/09) MORPHINE (Unverified Allergy, Unknown, 09/06/16) PENICILLINS (Unverified Allergy, Unknown, 04/06/16) Subjective The patient was seen and examined at bedside and all new and available data was reviewed in the patients chart. I agree with the above findings, impression and plan. (Patient seen earlier today. Signature stamp does not reflect patient encounter time.). -Manny Nolan MD Objective Last 24 Hour Vital Signs Date Time Temp Pulse Resp B/P Pulse Ox O2 Delivery O2 Flow Rate FiO2 09/11/16 21:14 89 22 95 Full Face 50 09/11/16 21:00 94 28 110/59 99 Bi-pap 45 09/11/16 20:00 88 21 111/50 99 Bi-pap 45 09/11/16 19:00 87 24 106/58 99 Bi-pap 45 09/11/16 18:51 95 Bi-pap 50 09/11/16 18:51 Bi-pap 50 09/11/16 18:47 88 22 96 Full Face 50 09/11/16 18:00 95 21 109/56 99 Bi-pap 45 09/11/16 17:16 83 27 87 Full Face 50 09/11/16 17:00 95 21 103/47 97 Bi-pap 45 09/11/16 16:00 82 21 92/47 95 Bi-pap 45 09/11/16 15:40 88 09/11/16 15:00 97.8 87 24 101/52 97 Bi-pap 45 09/11/16 14:59 Full Face 09/11/16 14:42 94 27 95 Facial 45 09/11/16 14:00 87 23 96/49 95 Bi-pap 45 09/11/16 13:00 92 21 108/61 96 Bi-pap 45 09/11/16 12:38 94 09/11/16 12:34 95 24 95 Facial 45 09/11/16 12:00 88 24 95/45 96 Bi-pap 45 09/11/16 11:00 85 23 94/46 96 Bi-pap 45 09/11/16 10:47 87 20 100 Facial 45 09/11/16 10:00 90 23 99/66 97 Bi-pap 45 09/11/16 09:28 88 27 100 Facial 45 09/11/16 09:00 97.9 91 21 110/59 97 Bi-pap 45 09/11/16 08:29 88 09/11/16 08:00 87 23 111/59 93 Bi-pap 45 09/11/16 08:00 87 09/11/16 07:23 Bi-pap 45 09/11/16 07:22 87 21 96 Facial 45 09/11/16 07:22 96 Bi-pap 45 09/11/16 07:00 88 23 84/43 94 Bi-pap 45 09/11/16 06:00 80 23 89/47 94 Bi-pap 45 09/11/16 05:05 90 21 96 Facial 45 09/11/16 05:00 82 23 88/48 94 Bi-pap 45 09/11/16 04:00 82 09/11/16 04:00 98.0 82 23 85/48 94 Bi-pap 45 09/11/16 03:19 91 23 100 Facial 45 09/11/16 03:00 83 23 80/35 98 Bi-pap 45 09/11/16 02:00 85 23 92/52 98 Bi-pap 45 09/11/16 01:02 87 25 93 Facial 45 09/11/16 01:00 86 24 87/46 99 Bi-pap 45 09/11/16 00:00 98.2 85 23 90/47 93 Bi-pap 45 09/11/16 00:00 86 09/10/16 23:03 94 23 95 Facial 45 09/10/16 23:00 89 23 100/56 93 Bi-pap 45 Intake and Output 09/10/16 09/11/16 18:59 06:59 Intake Total 55 ml Output Total 200 ml 660 ml Balance -145 ml -660 ml IV Total 55 ml Output Urine Total 200 ml 660 ml Stool Total 0 ml # Voids 2 1 Laboratory Tests 09/11/16 04:57: White Blood Count 5.1, Red Blood Count 2.97L, Hemoglobin 8.6L, Hematocrit 28.6L , Mean Corpuscular Volume 96, Mean Corpuscular Hemoglobin 29.1, Mean Corpuscular Hemoglobin Concent 30.1L, Red Cell Distribution Width 14.6, Platelet Count 116L, Mean Platelet Volume 6.0L, Neutrophils (%) (Auto) 73.8, Lymphocytes (%) (Auto) 15.1L, Monocytes (%) (Auto) 8.8, Eosinophils (%) (Auto) 1.6, Basophils (%) (Auto) 0.6, Sodium Level 143, Potassium Level 4.2, Chloride Level 95L, Carbon Dioxide Level 40H, Anion Gap 8, Blood Urea Nitrogen 47H, Creatinine 2.7H, Estimat Glomerular Filtration Rate , Glucose Level 96, Uric Acid 8.2H, Calcium Level 8.2L, Phosphorus Level 6.1H, Magnesium Level 2.1, Total Bilirubin 0.3, Aspartate Amino Transf (AST/SGOT) 9, Alanine Aminotransferase (ALT/SGPT) 5, Alkaline Phosphatase 53, C-Reactive Protein, Quantitative 2.1H, Pro-B-Type Natriuretic Peptide 09297F, Total Protein 6.4L, Albumin 3.1L, Globulin 3.3, Albumin/Globulin Ratio 0.9L 09/11/16 09:54: Arterial Blood pH 7.310L, Arterial Blood Partial Pressure CO2 84.7*H, Arterial Blood Partial Pressure O2 85.5, Arterial Blood HCO3 41.8H, Arterial Blood Oxygen Saturation 96.0, Arterial Blood Base Excess 12.9, Mike Test Positive Height (Feet): 5 Height (Inches): 4.00 Weight (Pounds): 322 General Appearance: WD/WN, alert, morbidly obese EENT: PERRL/EOMI Neck: non-tender Cardiovascular: normal rate, regular rhythm Respiratory/Chest: chest wall non-tender, lungs clear Abdomen: normal bowel sounds, non tender Extremities: normal range of motion Edema: no edema noted Arm (L), no edema noted Arm (R), 3+ Leg (L), 3+ Leg (R), 3+ Pedal (L), 3+ Pedal (R), 3+ Generalized Edema: severe edema Neurologic: pattern setter II-XII grossly normal, alert, oriented x 3 Lymphatic: normal anterior cervical (L), normal anterior cervical (R), normal axillary (L), normal axillary (R), normal inguinal (L), normal inguinal (R), normal other, normal posterior cervical (L), normal posterior cervical (R), normal submandibular (L), normal submandibular (R), normal supraclavicular (L), normal supraclavicular (R) Manny Nolan MD Sep 11, 2016 22:30
[2016-09-12] VITALS (25 sets, daily range): BP systolic 87–122; BP diastolic 42–83
[2016-09-12] MEDS: Revatio 20mg tab ORAL SCH ×3 (05:34→21:32)
[2016-09-12 05:49] LABS: BASOPHILS % (AUTO) 1.1 % (0.0-2.0); EOSINOPHILS % (AUTO) 1.9 % (0.0-3.0); LYMPHOCYTES % (AUTO) 20.6 % (20.0-45.0); MEAN CORPUSCULAR HEMOGLOBIN 28.8 PG (27.0-31.0); MEAN CORPUSCULAR HGB CONC 29.9 G/DL (32.0-36.0); MEAN CORPUSCULAR VOLUME 96 FL (80-99); MEAN PLATELET VOLUME 6.2 FL (6.5-10.1); MONOCYTES % (AUTO) 9.6 % (1.0-10.0); NEUTROPHILS % (AUTO) 66.8 % (45.0-75.0); PLATELET COUNT 131 K/UL (150-450); RED BLOOD COUNT 3.24 M/UL (4.20-5.40); RED CELL DISTRIBUTION WIDTH 14.5 % (11.6-14.8); WHITE BLOOD COUNT 5.3 K/UL (4.8-10.8)
[2016-09-12 06:15] LABS: ANION GAP 11 (5-15); CALCIUM 8.3 mg/dL (8.6-10.2); CARBON DIOXIDE 39 mEQ/L (20-30); CHLORIDE 94 mEQ/L (98-107); CREATININE 2.7 mg/dL (0.5-0.9); HEMOLYSIS 0; POTASSIUM 4.2 mEQ/L (3.4-4.9); SODIUM 144 mEQ/L (135-145)
[2016-09-12] MEDS: Ertapenem 1 GM in NS 55 ML IVPB SCH (08:14)
[2016-09-12] MEDS: Pantoprazole Inj IVP SCH ×2 (08:14→20:57)
[2016-09-12] MEDS: Miralax 17gm pkt ORAL SCH (08:14)
[2016-09-12] MEDS: Heparin 5000 units/ml inj SUBQ SCH ×2 (08:16→21:00)
[2016-09-12] MEDS: Nystatin Powder 100,000 units/gm 15gm TOPIC SCH ×3 (08:24→17:59)
--- NOTE | 2016-09-12 08:50 | Pulmonolgy Critical Care Note ---
Critical Care - Asmt/Plan Assessment/Plan: ASSESSMENT acute on chronic hypercapnic respiratory failure, requiring BiPAP acute GI bleeding anemia s/p blood transfusion CKD acute diastolic CHF A fib UTI with E coli ESBL COPD MINA Pickwickian syndrome morbid obesity severe pulmonary HTN moderate MR severe TR B 12 deficiency anemia-replaced hyperkalemia -resolved PLAN OF CARE ICU BiPAP, increase IPAP and EPAP settings and check ABG in am titrate FiO2 to keep sat above 92 CXR in am pulmonary toilet prn ECHO with EF 60-65% and RVSP of 94 c/w severe pulmonary HTN as well as evidence of moderate MR and severe TR cardio follows lipid panel stable troponin x 3 negative Eliquis on hold due to anemia Lasix on hold due to ARF and rising creat continue Sildenafil watch BP closely GI follows no further episodes of upper GI bleeding GI prophylaxis tolerates diet a/emetic prn upper G series with esophageal dysmotility per GI - hold GI procedures for now- high risk abx, ID follows urine cx + E coli ESBL, blood cx preliminary negative nephro follows, creat w/out significant changes renal US negative Venous Duplex BLE negative SCD monitor renal parameters, lytes avoid nephrotoxic hyperkalemia resolved after Kayexalate treatment case discussed and evaluated by supervising physician Critical Care - Objective Last 24 Hour Vital Signs Date Time Temp Pulse Resp B/P Pulse Ox O2 Delivery O2 Flow Rate FiO2 09/12/16 06:55 Bi-pap 50 09/12/16 06:55 100 Bi-pap 50 09/12/16 06:55 84 29 100 Facial 50 09/12/16 06:00 90 19 101/51 99 Bi-pap 45 09/12/16 05:10 86 22 97 Facial 50 09/12/16 05:00 87 19 91/51 99 Bi-pap 45 09/12/16 04:00 89 19 104/55 99 Bi-pap 45 09/12/16 04:00 92 09/12/16 03:52 89 24 96 Full Face 50 09/12/16 03:00 89 21 94/42 99 Bi-pap 45 09/12/16 02:00 89 24 99/53 99 Bi-pap 45 09/12/16 01:25 86 23 97 Full Face 50 09/12/16 01:00 85 24 119/64 99 Bi-pap 45 09/12/16 00:00 88 20 104/62 99 Bi-pap 45 09/12/16 00:00 88 09/11/16 23:21 86 24 98 Full Face 50 09/11/16 23:00 88 25 95/51 99 Bi-pap 45 09/11/16 22:00 86 25 107/53 99 Bi-pap 45 09/11/16 21:14 89 22 95 Full Face 50 09/11/16 21:00 94 28 110/59 99 Bi-pap 45 09/11/16 20:00 88 21 111/50 99 Bi-pap 45 09/11/16 20:00 86 09/11/16 19:00 87 24 106/58 99 Bi-pap 45 09/11/16 18:51 95 Bi-pap 50 09/11/16 18:51 Bi-pap 50 09/11/16 18:47 88 22 96 Full Face 50 09/11/16 18:00 95 21 109/56 99 Bi-pap 45 09/11/16 17:16 83 27 87 Full Face 50 09/11/16 17:00 95 21 103/47 97 Bi-pap 45 09/11/16 16:00 82 21 92/47 95 Bi-pap 45 09/11/16 15:40 88 09/11/16 15:00 97.8 87 24 101/52 97 Bi-pap 45 09/11/16 14:59 Full Face 09/11/16 14:42 94 27 95 Facial 45 09/11/16 14:00 87 23 96/49 95 Bi-pap 45 09/11/16 13:00 92 21 108/61 96 Bi-pap 45 09/11/16 12:38 94 09/11/16 12:34 95 24 95 Facial 45 09/11/16 12:00 88 24 95/45 96 Bi-pap 45 09/11/16 11:00 85 23 94/46 96 Bi-pap 45 09/11/16 10:47 87 20 100 Facial 45 09/11/16 10:00 90 23 99/66 97 Bi-pap 45 09/11/16 09:28 88 27 100 Facial 45 09/11/16 09:00 97.9 91 21 110/59 97 Bi-pap 45 Objective: Status: awake, on BiPAP 15/5 45% morbidly obese female, awake, alert , responsive, weak Condition: critical HEENT: atraumatic, normocephalic, other - BiPAP mask on Heart: HR/BP stable, other - distant heart sounds Abdomen: soft, non-tender - obese Extremities: other - edema +2, bilateral leg skin changes due to stasis, L>R Accucheck: 103 Critical Care - Subjective ROS Limited/Unobtainable: Yes Interval Events: remains on BiPAP ABG this am with acidosis and worsening hypercapnia creat up to 2.7 BP stable Condition: critical EKG Rhythm: Sinus Rhythm FI02: 45 Sputum Amount: None I&O: Intake and Output 09/11/16 09/12/16 19:00 07:00 Intake Total 455 ml 40 ml Output Total 160 ml 85 ml Balance 295 ml -45 ml Intake Oral 150 ml 40 ml IV Total 305 ml Output Urine Total 160 ml 85 ml CXR: 09/12 -The cardiomediastinal silhouette is unchanged. No new infiltrates are identified. Jaquelin Xie NP ([facility]) Sep 12, 2016 08:50
--- NOTE | 2016-09-12 08:51 | Diagnostic Imaging Report ---
Indication: SOB Technique: XRAY CHEST 1 V. Comparison: 09/11/2016 Findings: The cardiomediastinal silhouette is unchanged. No new infiltrates are identified. Impression: No significant change from prior examination.
--- NOTE | 2016-09-12 09:11 | Infectious Diseases Prog Note ---
Assessment/Plan Assessment/Plan A: E. coli UTI GI bleeding Hypercapnic respiratory failure Acute renal failure, CKD Anemia Morbid obesity DM P: Continue Ertapenem Subjective ROS Limited/Unobtainable: No Constitutional: Reports: no symptoms Respiratory: Reports: shortness of breath Gastrointestinal/Abdominal: Reports: no symptoms Genitourinary: Reports: no symptoms Allergies: Coded Allergies: AMOXICILLIN (Verified Allergy, Mild, RASH, 12/25/09) MORPHINE (Unverified Allergy, Unknown, 09/06/16) PENICILLINS (Unverified Allergy, Unknown, 04/06/16) Objective Vital Signs Last 24 Hour Vital Signs Date Time Temp Pulse Resp B/P Pulse Ox O2 Delivery O2 Flow Rate FiO2 09/12/16 08:55 88 24 97 Facial 50 09/12/16 06:55 Bi-pap 50 09/12/16 06:55 100 Bi-pap 50 09/12/16 06:55 84 29 100 Facial 50 09/12/16 06:00 90 19 101/51 99 Bi-pap 45 09/12/16 05:10 86 22 97 Facial 50 09/12/16 05:00 87 19 91/51 99 Bi-pap 45 09/12/16 04:00 89 19 104/55 99 Bi-pap 45 09/12/16 04:00 92 09/12/16 03:52 89 24 96 Full Face 50 09/12/16 03:00 89 21 94/42 99 Bi-pap 45 09/12/16 02:00 89 24 99/53 99 Bi-pap 45 09/12/16 01:25 86 23 97 Full Face 50 09/12/16 01:00 85 24 119/64 99 Bi-pap 45 09/12/16 00:00 88 20 104/62 99 Bi-pap 45 09/12/16 00:00 88 09/11/16 23:21 86 24 98 Full Face 50 09/11/16 23:00 88 25 95/51 99 Bi-pap 45 09/11/16 22:00 86 25 107/53 99 Bi-pap 45 09/11/16 21:14 89 22 95 Full Face 50 09/11/16 21:00 94 28 110/59 99 Bi-pap 45 09/11/16 20:00 88 21 111/50 99 Bi-pap 45 09/11/16 20:00 86 09/11/16 19:00 87 24 106/58 99 Bi-pap 45 09/11/16 18:51 95 Bi-pap 50 09/11/16 18:51 Bi-pap 50 09/11/16 18:47 88 22 96 Full Face 50 09/11/16 18:00 95 21 109/56 99 Bi-pap 45 09/11/16 17:16 83 27 87 Full Face 50 09/11/16 17:00 95 21 103/47 97 Bi-pap 45 09/11/16 16:00 82 21 92/47 95 Bi-pap 45 09/11/16 15:40 88 09/11/16 15:00 97.8 87 24 101/52 97 Bi-pap 45 09/11/16 14:59 Full Face 09/11/16 14:42 94 27 95 Facial 45 09/11/16 14:00 87 23 96/49 95 Bi-pap 45 09/11/16 13:00 92 21 108/61 96 Bi-pap 45 09/11/16 12:38 94 09/11/16 12:34 95 24 95 Facial 45 09/11/16 12:00 88 24 95/45 96 Bi-pap 45 09/11/16 11:00 85 23 94/46 96 Bi-pap 45 09/11/16 10:47 87 20 100 Facial 45 09/11/16 10:00 90 23 99/66 97 Bi-pap 45 09/11/16 09:28 88 27 100 Facial 45 Height (Feet): 5 Height (Inches): 4.00 Weight (Pounds): 328 General Appearance: other - obese HEENT: mucous membranes moist Respiratory/Chest: decreased breath sounds, other - on BIPAP Cardiovascular: normal rate Abdomen: soft, non tender Extremities: other - edema of legs Neurologic/Psychiatric: alert, responsive Laboratory Tests Test 09/11/16 09:54 09/12/16 04:18 09/12/16 08:21 Arterial Blood pH 7.310 (7.350-7.450) Pending Arterial Blood Partial Pressure CO2 84.7 mmHg (35.0-45.0) *H Pending Arterial Blood Partial Pressure O2 85.5 mmHg (75.0-100.0) Pending Arterial Blood HCO3 41.8 mmol/L (22.0-26.0) H Pending Arterial Blood Oxygen Saturation 96.0 % (92.0-98.0) Pending Arterial Blood Base Excess 12.9 Pending Mike Test Positive Pending White Blood Count 5.3 K/UL (4.8-10.8) Red Blood Count 3.24 M/UL (4.20-5.40) L Hemoglobin 9.3 G/DL (12.0-16.0) L Hematocrit 31.2 % (37.0-47.0) L Mean Corpuscular Volume 96 FL (80-99) Mean Corpuscular Hemoglobin 28.8 PG (27.0-31.0) Mean Corpuscular Hemoglobin Concent 29.9 G/DL (32.0-36.0) L Red Cell Distribution Width 14.5 % (11.6-14.8) Platelet Count 131 K/UL (150-450) L Mean Platelet Volume 6.2 FL (6.5-10.1) L Neutrophils (%) (Auto) 66.8 % (45.0-75.0) Lymphocytes (%) (Auto) 20.6 % (20.0-45.0) Monocytes (%) (Auto) 9.6 % (1.0-10.0) Eosinophils (%) (Auto) 1.9 % (0.0-3.0) Basophils (%) (Auto) 1.1 % (0.0-2.0) Sodium Level 144 mEQ/L (135-145) Potassium Level 4.2 mEQ/L (3.4-4.9) Chloride Level 94 mEQ/L (98-107) L Carbon Dioxide Level 39 mEQ/L (20-30) H Anion Gap 11 (5-15) Blood Urea Nitrogen 50 mg/dL (7-23) H Creatinine 2.7 mg/dL (0.5-0.9) H Estimat Glomerular Filtration Rate mL/min (>60) Glucose Level 98 mg/dL (74-106) Calcium Level 8.3 mg/dL (8.6-10.2) L Current Medications Medications (Trade) Dose Ordered Sig/Kalyn Route PRN Reason Start Time Stop Time Status Last Admin Dose Admin Acetaminophen (Tylenol) 650 mg Q4H PRN ORAL T>100.5 09/10/16 18:30 10/10/16 18:29 Albuterol/ Ipratropium (DuoNeb 0.5-3(2.5)mg/3ml) 3 ml Q4H PRN HHN Shortness of Breath 09/10/16 18:30 09/15/16 18:29 Dextrose (Dextrose 50%) STAT PRN IV Hypoglycemia 09/10/16 18:05 10/10/16 18:04 Ertapenem/Sodium Chloride (INVanz/Sodium Chloride) 55 ml @ 110 mls/hr Q24H IVPB 09/11/16 09:00 09/15/16 08:59 09/12/16 08:14 Folic Acid (Folate) 2 mg DAILY ORAL 09/11/16 09:00 10/11/16 08:59 09/12/16 08:15 Heparin Sodium (Porcine) (Heparin 5000 units/ml) 5,000 units EVERY 12 HOURS SUBQ 09/10/16 21:00 10/10/16 20:59 09/12/16 08:16 Letrozole (Femara) 2.5 mg DAILY ORAL 09/11/16 09:00 09/16/16 08:59 09/12/16 08:14 Nystatin (Nystop Powder) 1 applic THREE TIMES A DAY TOPIC 09/11/16 09:00 10/11/16 08:59 09/12/16 08:24 Ondansetron HCl (Zofran) 4 mg Q6H PRN IVP Nausea & Vomiting 09/10/16 18:30 10/10/16 18:29 Pantoprazole (Protonix) 40 mg EVERY 12 HOURS IVP 09/10/16 21:00 10/10/16 20:59 09/12/16 08:14 Polyethylene Glycol (Miralax) 17 gm DAILY ORAL 09/11/16 09:00 10/11/16 08:59 09/12/16 08:14 Polyethylene Glycol (Miralax) 17 gm DAILYPRN PRN ORAL Constipation 09/10/16 18:30 10/10/16 18:29 Pravastatin Sodium (Pravachol) 20 mg BEDTIME ORAL 09/10/16 21:00 10/10/16 20:59 09/11/16 21:00 Sildenafil Citrate (Revatio) 40 mg Q8HR ORAL 09/10/16 22:00 10/10/16 21:59 09/12/16 05:34 Temazepam (Restoril) 15 mg HSPRN PRN ORAL Insomnia 09/10/16 21:00 09/17/16 20:59 09/11/16 21:56 CARY ESTES Sep 12, 2016 09:11
[2016-09-12 09:23] LABS: ABG ALLEN TEST POSITIVE; ABG BASE EXCESS 15.6
[2016-09-12] MEDS ORDERED: NS 275ml ONE (09:59)
--- NOTE | 2016-09-12 10:18 | General Progress Note ---
Assessment/Plan Status: stable - from pulmonary stand on BIPAP Status Narrative Cr 2.7 unchanged Assessment/Plan CKD- and acute renal failure Acute respiratory failure High K Obese COPD , rising Co2 CHF, Diastolic MINA UTI Anemia GI Bleed, GI bleeding At Fib Pulm HTN Low B12 Plan; BIPAP Hold lasix- ABG Optimize cardiac status- Monitor renal parameters and lytes- Avoid nephrotoxics B12 SQ- PO Folate Subjective ROS Limited/Unobtainable: No Constitutional: Reports: malaise Allergies: Coded Allergies: AMOXICILLIN (Verified Allergy, Mild, RASH, 12/25/09) MORPHINE (Unverified Allergy, Unknown, 09/06/16) PENICILLINS (Unverified Allergy, Unknown, 04/06/16) Objective Last 24 Hour Vital Signs Date Time Temp Pulse Resp B/P Pulse Ox O2 Delivery O2 Flow Rate FiO2 09/12/16 09:00 87 22 94/52 97 Bi-pap 45 09/12/16 08:55 88 24 97 Facial 50 09/12/16 08:00 98.2 91 21 122/55 97 Bi-pap 45 09/12/16 07:00 86 20 87/50 99 Bi-pap 45 09/12/16 06:55 Bi-pap 50 09/12/16 06:55 100 Bi-pap 50 09/12/16 06:55 84 29 100 Facial 50 09/12/16 06:00 90 19 101/51 99 Bi-pap 45 09/12/16 05:10 86 22 97 Facial 50 09/12/16 05:00 87 19 91/51 99 Bi-pap 45 09/12/16 04:00 89 19 104/55 99 Bi-pap 45 09/12/16 04:00 92 09/12/16 03:52 89 24 96 Full Face 50 09/12/16 03:00 89 21 94/42 99 Bi-pap 45 09/12/16 02:00 89 24 99/53 99 Bi-pap 45 09/12/16 01:25 86 23 97 Full Face 50 09/12/16 01:00 85 24 119/64 99 Bi-pap 45 09/12/16 00:00 88 20 104/62 99 Bi-pap 45 09/12/16 00:00 88 09/11/16 23:21 86 24 98 Full Face 50 09/11/16 23:00 88 25 95/51 99 Bi-pap 45 09/11/16 22:00 86 25 107/53 99 Bi-pap 45 09/11/16 21:14 89 22 95 Full Face 50 09/11/16 21:00 94 28 110/59 99 Bi-pap 45 09/11/16 20:00 88 21 111/50 99 Bi-pap 45 09/11/16 20:00 86 09/11/16 19:00 87 24 106/58 99 Bi-pap 45 09/11/16 18:51 95 Bi-pap 50 09/11/16 18:51 Bi-pap 50 09/11/16 18:47 88 22 96 Full Face 50 09/11/16 18:00 95 21 109/56 99 Bi-pap 45 09/11/16 17:16 83 27 87 Full Face 50 09/11/16 17:00 95 21 103/47 97 Bi-pap 45 09/11/16 16:00 82 21 92/47 95 Bi-pap 45 09/11/16 15:40 88 09/11/16 15:00 97.8 87 24 101/52 97 Bi-pap 45 09/11/16 14:59 Full Face 09/11/16 14:42 94 27 95 Facial 45 09/11/16 14:00 87 23 96/49 95 Bi-pap 45 09/11/16 13:00 92 21 108/61 96 Bi-pap 45 09/11/16 12:38 94 09/11/16 12:34 95 24 95 Facial 45 09/11/16 12:00 88 24 95/45 96 Bi-pap 45 09/11/16 11:00 85 23 94/46 96 Bi-pap 45 09/11/16 10:47 87 20 100 Facial 45 Intake and Output 09/11/16 09/12/16 19:00 07:00 Intake Total 455 ml 40 ml Output Total 160 ml 85 ml Balance 295 ml -45 ml Intake Oral 150 ml 40 ml IV Total 305 ml Output Urine Total 160 ml 85 ml Laboratory Tests 09/12/16 04:18: White Blood Count 5.3, Red Blood Count 3.24L, Hemoglobin 9.3L, Hematocrit 31.2L , Mean Corpuscular Volume 96, Mean Corpuscular Hemoglobin 28.8, Mean Corpuscular Hemoglobin Concent 29.9L, Red Cell Distribution Width 14.5, Platelet Count 131L, Mean Platelet Volume 6.2L, Neutrophils (%) (Auto) 66.8, Lymphocytes (%) (Auto) 20.6, Monocytes (%) (Auto) 9.6, Eosinophils (%) (Auto) 1.9, Basophils (%) (Auto) 1.1, Sodium Level 144, Potassium Level 4.2, Chloride Level 94L, Carbon Dioxide Level 39H, Anion Gap 11, Blood Urea Nitrogen 50H, Creatinine 2.7H, Estimat Glomerular Filtration Rate , Glucose Level 98, Calcium Level 8.3L 09/12/16 08:21: Arterial Blood pH 7.292L, Arterial Blood Partial Pressure CO2 96.0*H, Arterial Blood Partial Pressure O2 101.3H, Arterial Blood HCO3 45.3H, Arterial Blood Oxygen Saturation 96.9, Arterial Blood Base Excess 15.6, Mike Test Positive Height (Feet): 5 Height (Inches): 4.00 Weight (Pounds): 328 General Appearance: no apparent distress, other - more responsive EENT: other - on BIPAP Cardiovascular: normal rate Respiratory/Chest: decreased breath sounds Abdomen: soft Objective no change COURTNEY LOPEZ Sep 12, 2016 10:18
--- NOTE | 2016-09-12 11:03 | General Progress Note ---
Assessment/Plan Problem List: (1) Positive occult stool blood test ICD Codes: R19.5 - Other fecal abnormalities SNOMED: 10825246, 095321024 (2) Hypercapnia ICD Codes: R06.89 - Other abnormalities of breathing SNOMED: 99045802 (3) Anemia ICD Codes: D64.9 - Anemia, unspecified SNOMED: 332374695 Qualifiers: Qualified Codes: D64.9 - Anemia, unspecified (4) CHF (congestive heart failure) ICD Codes: I50.9 - Heart failure, unspecified SNOMED: 89683611 Qualifiers: Qualified Codes: I50.42 - Chronic combined systolic (congestive) and diastolic (congestive) heart failure (5) COPD (chronic obstructive pulmonary disease) ICD Codes: J44.9 - Chronic obstructive pulmonary disease, unspecified SNOMED: 10113321 Qualifiers: Qualified Codes: J44.9 - Chronic obstructive pulmonary disease, unspecified (6) CKD (chronic kidney disease) ICD Codes: N18.9 - Chronic kidney disease, unspecified SNOMED: 038999251 Qualifiers: Qualified Codes: N18.9 - Chronic kidney disease, unspecified (7) Atrial fibrillation ICD Codes: I48.91 - Unspecified atrial fibrillation SNOMED: 47070307 (8) Morbid obesity ICD Codes: E66.01 - Morbid (severe) obesity due to excess calories SNOMED: 279133801, 47574838039574 Assessment/Plan monitor H&H prn blood transfusion high risk for any GI procedures at this time GI prophylaxis fu pulm Subjective ROS Limited/Unobtainable: No Allergies: Coded Allergies: AMOXICILLIN (Verified Allergy, Mild, RASH, 12/25/09) MORPHINE (Unverified Allergy, Unknown, 09/06/16) PENICILLINS (Unverified Allergy, Unknown, 04/06/16) Subjective on BIPAP Objective Last 24 Hour Vital Signs Date Time Temp Pulse Resp B/P Pulse Ox O2 Delivery O2 Flow Rate FiO2 09/12/16 10:41 45 09/12/16 09:00 87 22 94/52 97 Bi-pap 45 09/12/16 08:55 88 24 97 Facial 50 09/12/16 08:00 98.2 91 21 122/55 97 Bi-pap 45 09/12/16 08:00 95 09/12/16 07:00 86 20 87/50 99 Bi-pap 45 09/12/16 06:55 Bi-pap 50 09/12/16 06:55 100 Bi-pap 50 09/12/16 06:55 84 29 100 Facial 50 09/12/16 06:00 90 19 101/51 99 Bi-pap 45 09/12/16 05:10 86 22 97 Facial 50 09/12/16 05:00 87 19 91/51 99 Bi-pap 45 09/12/16 04:00 89 19 104/55 99 Bi-pap 45 09/12/16 04:00 92 09/12/16 03:52 89 24 96 Full Face 50 09/12/16 03:00 89 21 94/42 99 Bi-pap 45 09/12/16 02:00 89 24 99/53 99 Bi-pap 45 09/12/16 01:25 86 23 97 Full Face 50 09/12/16 01:00 85 24 119/64 99 Bi-pap 45 09/12/16 00:00 88 20 104/62 99 Bi-pap 45 09/12/16 00:00 88 09/11/16 23:21 86 24 98 Full Face 50 09/11/16 23:00 88 25 95/51 99 Bi-pap 45 09/11/16 22:00 86 25 107/53 99 Bi-pap 45 09/11/16 21:14 89 22 95 Full Face 50 09/11/16 21:00 94 28 110/59 99 Bi-pap 45 09/11/16 20:00 88 21 111/50 99 Bi-pap 45 09/11/16 20:00 86 09/11/16 19:00 87 24 106/58 99 Bi-pap 45 09/11/16 18:51 95 Bi-pap 50 09/11/16 18:51 Bi-pap 50 09/11/16 18:47 88 22 96 Full Face 50 09/11/16 18:00 95 21 109/56 99 Bi-pap 45 09/11/16 17:16 83 27 87 Full Face 50 09/11/16 17:00 95 21 103/47 97 Bi-pap 45 09/11/16 16:00 82 21 92/47 95 Bi-pap 45 09/11/16 15:40 88 09/11/16 15:00 97.8 87 24 101/52 97 Bi-pap 45 09/11/16 14:59 Full Face 09/11/16 14:42 94 27 95 Facial 45 09/11/16 14:00 87 23 96/49 95 Bi-pap 45 09/11/16 13:00 92 21 108/61 96 Bi-pap 45 09/11/16 12:38 94 09/11/16 12:34 95 24 95 Facial 45 09/11/16 12:00 88 24 95/45 96 Bi-pap 45 Intake and Output 09/11/16 09/12/16 19:00 07:00 Intake Total 455 ml 40 ml Output Total 160 ml 85 ml Balance 295 ml -45 ml Intake Oral 150 ml 40 ml IV Total 305 ml Output Urine Total 160 ml 85 ml Laboratory Tests 09/12/16 04:18: White Blood Count 5.3, Red Blood Count 3.24L, Hemoglobin 9.3L, Hematocrit 31.2L , Mean Corpuscular Volume 96, Mean Corpuscular Hemoglobin 28.8, Mean Corpuscular Hemoglobin Concent 29.9L, Red Cell Distribution Width 14.5, Platelet Count 131L, Mean Platelet Volume 6.2L, Neutrophils (%) (Auto) 66.8, Lymphocytes (%) (Auto) 20.6, Monocytes (%) (Auto) 9.6, Eosinophils (%) (Auto) 1.9, Basophils (%) (Auto) 1.1, Sodium Level 144, Potassium Level 4.2, Chloride Level 94L, Carbon Dioxide Level 39H, Anion Gap 11, Blood Urea Nitrogen 50H, Creatinine 2.7H, Estimat Glomerular Filtration Rate , Glucose Level 98, Calcium Level 8.3L 09/12/16 08:21: Arterial Blood pH 7.292L, Arterial Blood Partial Pressure CO2 96.0*H, Arterial Blood Partial Pressure O2 101.3H, Arterial Blood HCO3 45.3H, Arterial Blood Oxygen Saturation 96.9, Arterial Blood Base Excess 15.6, Mike Test Positive Height (Feet): 5 Height (Inches): 4.00 Weight (Pounds): 328 General Appearance: no apparent distress EENT: normal ENT inspection Neck: supple Cardiovascular: normal rate Respiratory/Chest: decreased breath sounds Abdomen: normal bowel sounds, non tender, soft Extremities: non-tender RUDDY RODRIGUEZ Sep 12, 2016 11:03
--- NOTE | 2016-09-12 14:41 | Cardiology Progress Note ---
Assessment/Plan Assessment/Plan 1. Coffee-ground emesis. 2. Anemia, worsened, chronic. 3. Gastrointestinal bleed. 4. Permanent atrial fibrillation, on anticoagulation with Eliquis. 5. History of pulmonary hypertension of significant degree, treated with sildenafil. 6. Systemic hypertension. 7. Chronic renal insufficiency. 8. Diabetes mellitus 9. repiratotry acdosis 10. hypotension hgb noted tele noted bp seem borderlien off eliquis for now tele noted afib vr ok uo improved post hydration yest likey need mroe Subjective ROS Limited/Unobtainable: Yes Subjective on bipap sleepy Objective Last 24 Hour Vital Signs Date Time Temp Pulse Resp B/P Pulse Ox O2 Delivery O2 Flow Rate FiO2 09/12/16 13:29 89 28 93 Facial 35 09/12/16 12:54 87 09/12/16 12:00 98.3 87 21 94/58 97 Bi-pap 35 09/12/16 11:00 88 25 92 Facial 35 09/12/16 11:00 86 15 104/51 96 Bi-pap 45 09/12/16 10:41 45 09/12/16 10:00 83 23 109/74 97 Bi-pap 45 09/12/16 09:00 87 22 94/52 97 Bi-pap 45 09/12/16 08:55 88 24 97 Facial 50 09/12/16 08:00 50 09/12/16 08:00 98.2 91 21 122/55 97 Bi-pap 45 09/12/16 08:00 95 09/12/16 07:00 86 20 87/50 99 Bi-pap 45 09/12/16 06:55 Bi-pap 50 09/12/16 06:55 100 Bi-pap 50 09/12/16 06:55 84 29 100 Facial 50 09/12/16 06:00 90 19 101/51 99 Bi-pap 45 09/12/16 05:10 86 22 97 Facial 50 09/12/16 05:00 87 19 91/51 99 Bi-pap 45 09/12/16 04:00 89 19 104/55 99 Bi-pap 45 09/12/16 04:00 92 09/12/16 03:52 89 24 96 Full Face 50 09/12/16 03:00 89 21 94/42 99 Bi-pap 45 09/12/16 02:00 89 24 99/53 99 Bi-pap 45 09/12/16 01:25 86 23 97 Full Face 50 09/12/16 01:00 85 24 119/64 99 Bi-pap 45 09/12/16 00:00 88 20 104/62 99 Bi-pap 45 09/12/16 00:00 88 09/11/16 23:21 86 24 98 Full Face 50 09/11/16 23:00 88 25 95/51 99 Bi-pap 45 09/11/16 22:00 86 25 107/53 99 Bi-pap 45 09/11/16 21:14 89 22 95 Full Face 50 09/11/16 21:00 94 28 110/59 99 Bi-pap 45 09/11/16 20:00 88 21 111/50 99 Bi-pap 45 09/11/16 20:00 86 09/11/16 19:00 87 24 106/58 99 Bi-pap 45 09/11/16 18:51 95 Bi-pap 50 09/11/16 18:51 Bi-pap 50 09/11/16 18:47 88 22 96 Full Face 50 09/11/16 18:00 95 21 109/56 99 Bi-pap 45 09/11/16 17:16 83 27 87 Full Face 50 09/11/16 17:00 95 21 103/47 97 Bi-pap 45 09/11/16 16:00 82 21 92/47 95 Bi-pap 45 09/11/16 15:40 88 09/11/16 15:00 97.8 87 24 101/52 97 Bi-pap 45 09/11/16 14:59 Full Face 09/11/16 14:42 94 27 95 Facial 45 General Appearance: no apparent distress, obese, other - on bipap isolation Neck: supple Cardiovascular: normal rate, regular rhythm Respiratory/Chest: lungs clear - ant Abdomen: normal bowel sounds, non tender, soft Extremities: moderate edema Intake and Output 09/11/16 09/12/16 19:00 07:00 Intake Total 455 ml 40 ml Output Total 160 ml 85 ml Balance 295 ml -45 ml Intake Oral 150 ml 40 ml IV Total 305 ml Output Urine Total 160 ml 85 ml Laboratory Tests Test 09/12/16 04:18 09/12/16 08:21 White Blood Count 5.3 K/UL (4.8-10.8) Red Blood Count 3.24 M/UL (4.20-5.40) L Hemoglobin 9.3 G/DL (12.0-16.0) L Hematocrit 31.2 % (37.0-47.0) L Mean Corpuscular Volume 96 FL (80-99) Mean Corpuscular Hemoglobin 28.8 PG (27.0-31.0) Mean Corpuscular Hemoglobin Concent 29.9 G/DL (32.0-36.0) L Red Cell Distribution Width 14.5 % (11.6-14.8) Platelet Count 131 K/UL (150-450) L Mean Platelet Volume 6.2 FL (6.5-10.1) L Neutrophils (%) (Auto) 66.8 % (45.0-75.0) Lymphocytes (%) (Auto) 20.6 % (20.0-45.0) Monocytes (%) (Auto) 9.6 % (1.0-10.0) Eosinophils (%) (Auto) 1.9 % (0.0-3.0) Basophils (%) (Auto) 1.1 % (0.0-2.0) Sodium Level 144 mEQ/L (135-145) Potassium Level 4.2 mEQ/L (3.4-4.9) Chloride Level 94 mEQ/L (98-107) L Carbon Dioxide Level 39 mEQ/L (20-30) H Anion Gap 11 (5-15) Blood Urea Nitrogen 50 mg/dL (7-23) H Creatinine 2.7 mg/dL (0.5-0.9) H Estimat Glomerular Filtration Rate mL/min (>60) Glucose Level 98 mg/dL (74-106) Calcium Level 8.3 mg/dL (8.6-10.2) L Arterial Blood pH 7.292 (7.350-7.450) Arterial Blood Partial Pressure CO2 96.0 mmHg (35.0-45.0) *H Arterial Blood Partial Pressure O2 101.3 mmHg (75.0-100.0) H Arterial Blood HCO3 45.3 mmol/L (22.0-26.0) H Arterial Blood Oxygen Saturation 96.9 % (92.0-98.0) Arterial Blood Base Excess 15.6 Mike Test Positive BRIANA TELLES Sep 12, 2016 14:41
--- NOTE | 2016-09-12 19:42 | General Progress Note ---
Assessment/Plan Status: not improved Assessment/Plan 1. Acute respiratory failure requiring BiPAP with respiratory acidosis --on continuous Bipap -patient now in ICU - Dr Anju llanos 2. Acute gastrointestinal bleed with acute anemia requiring blood transfusion. -s/p BT 4 units, H/H stable, no more episodes of hematemesis -diet was advanced by GI currently on soft diet tolerating diet - follow Dr Rodriguez recommendations, UGI is limited study no ulcers seen, has esophageal dysmotility -continue PPI 3. Acute kidney injury on chronic kidney disease. now with oliguria -stable, renal US noted - follow Dr Zamora recommendations, lasix on hold, consider Albumin chased by lasix 4. Hyperkalemia., resolved. 5. Acute diastolic ongestive heart failure. - lasix on hold due to VERONICA, consider lasix drip,chest - Dr Peralta cardio 6. Atrial fibrillation. - off eliquis for now, at risk for cva 7. Pulmonary hypertension. - on sildanefil 8. Morbid obesity. 9. Chronic obstructive pulmonary disease. continue nebulizer 10. Chronic obstructive sleep apnea. bipap 11. UTI Ecoli ESBL with sepsis: antibioitics per ID 12. morbid obesity: diet and weight loss encouraged 13. DJD: will need pt/ot, home health once dc, will order large wheel chair, hospital bed for home use 14. hypotension: improved PT/OT when clinically more stable discussed with ICU nurse Guarded condition Subjective Date patient seen: Sep 12, 2016 Allergies: Coded Allergies: AMOXICILLIN (Verified Allergy, Mild, RASH, 12/25/09) MORPHINE (Unverified Allergy, Unknown, 09/06/16) PENICILLINS (Unverified Allergy, Unknown, 04/06/16) Subjective The patient was seen and examined at bedside and all new and available data was reviewed in the patients chart. I agree with the above findings, impression and plan. (Patient seen earlier today. Signature stamp does not reflect patient encounter time.). -Manny Nolan MD Objective Last 24 Hour Vital Signs Date Time Temp Pulse Resp B/P Pulse Ox O2 Delivery O2 Flow Rate FiO2 09/12/16 19:01 Bi-pap 35 09/12/16 19:00 85 25 95/52 95 Bi-pap 35 09/12/16 18:43 89 20 93 Facial 35 8/6/17 18:40 98 Bi-pap 35 8/6/17 18:33 35 8/6/17 18:00 88 25 104/58 98 Bi-pap 35 8/6/17 17:15 85 27 94 Facial 35 8/6/17 17:00 95 17 106/59 93 Bi-pap 35 8/6/17 16:42 97.5 90 24 100/51 95 Bi-pap 35 8/6/17 16:12 87 8/6/17 16:12 35 8/6/17 16:00 97.5 90 24 100/51 95 Bi-pap 35 8/6/17 15:10 88 22 95 Facial 35 8/6/17 15:00 93 22 108/63 96 Bi-pap 35 8/6/17 14:00 88 28 93/55 96 Bi-pap 35 8/6/17 13:29 89 28 93 Facial 35 /6/17 13:00 93 23 95/47 93 Bi-pap 35 8/6/17 12:54 87 09/12/ 12:00 98.3 87 21 94/58 97 Bi-pap 35 /6/17 12:00 35 /6/17 11:00 88 25 92 Facial 35 8/6/17 11:00 86 15 104/51 96 Bi-pap 45 86/17 10:41 45 /6/ 10:00 83 23 109/74 97 Bi-pap 45 /6/17 09:00 87 22 94/52 97 Bi-pap 45 6/17 08:55 88 24 97 Facial 50 6/ 08:00 50 8/6/17 08:00 98.2 91 21 122/55 97 Bi-pap 45 8/6/17 08:00 95 6/17 07:00 86 20 87/50 99 Bi-pap 45 8/6/17 06:55 Bi-pap 50 8/6/17 06:55 100 Bi-pap 50 8/6/17 06:55 84 29 100 Facial 50 8/6/17 06:00 90 19 101/51 99 Bi-pap 45 8/6/17 05:10 86 22 97 Facial 50 8/6/17 05:00 87 19 91/51 99 Bi-pap 45 8/6/17 04:00 89 19 104/55 99 Bi-pap 45 8/6/17 04:00 92 09/12/16 03:52 89 24 96 Full Face 50 09/12/16 03:00 89 21 94/42 99 Bi-pap 45 09/12/16 02:00 89 24 99/53 99 Bi-pap 45 09/12/16 01:25 86 23 97 Full Face 50 09/12/16 01:00 85 24 119/64 99 Bi-pap 45 09/12/16 00:00 88 20 104/62 99 Bi-pap 45 09/12/16 00:00 88 09/11/16 23:21 86 24 98 Full Face 50 09/11/16 23:00 88 25 95/51 99 Bi-pap 45 09/11/16 22:00 86 25 107/53 99 Bi-pap 45 09/11/16 21:14 89 22 95 Full Face 50 09/11/16 21:00 94 28 110/59 99 Bi-pap 45 09/11/16 20:00 88 21 111/50 99 Bi-pap 45 09/11/16 20:00 86 Intake and Output 09/11/16 09/12/16 19:00 07:00 Intake Total 455 ml 40 ml Output Total 160 ml 85 ml Balance 295 ml -45 ml Intake Oral 150 ml 40 ml IV Total 305 ml Output Urine Total 160 ml 85 ml Laboratory Tests 09/12/16 04:18: White Blood Count 5.3, Red Blood Count 3.24L, Hemoglobin 9.3L, Hematocrit 31.2L , Mean Corpuscular Volume 96, Mean Corpuscular Hemoglobin 28.8, Mean Corpuscular Hemoglobin Concent 29.9L, Red Cell Distribution Width 14.5, Platelet Count 131L, Mean Platelet Volume 6.2L, Neutrophils (%) (Auto) 66.8, Lymphocytes (%) (Auto) 20.6, Monocytes (%) (Auto) 9.6, Eosinophils (%) (Auto) 1.9, Basophils (%) (Auto) 1.1, Sodium Level 144, Potassium Level 4.2, Chloride Level 94L, Carbon Dioxide Level 39H, Anion Gap 11, Blood Urea Nitrogen 50H, Creatinine 2.7H, Estimat Glomerular Filtration Rate , Glucose Level 98, Calcium Level 8.3L 09/12/16 08:21: Arterial Blood pH 7.292L, Arterial Blood Partial Pressure CO2 96.0*H, Arterial Blood Partial Pressure O2 101.3H, Arterial Blood HCO3 45.3H, Arterial Blood Oxygen Saturation 96.9, Arterial Blood Base Excess 15.6, Mike Test Positive Height (Feet): 5 Height (Inches): 4.00 Weight (Pounds): 328 General Appearance: WD/WN, lethargic, morbidly obese EENT: PERRL/EOMI Neck: non-tender Cardiovascular: normal peripheral pulses Respiratory/Chest: chest wall non-tender, normal breath sounds Abdomen: normal bowel sounds Extremities: normal range of motion, swelling Edema: no edema noted Arm (L), no edema noted Arm (R), 3+ Leg (L), 3+ Leg (R), 3+ Pedal (L), 3+ Pedal (R), 3+ Generalized Edema: moderate edema Neurologic: safety net maker II-XII grossly normal, no motor/sensory deficits, oriented x 3 , responsive Skin: no diaphoresis Lymphatic: normal anterior cervical (L), normal anterior cervical (R), normal axillary (L), normal axillary (R), normal inguinal (L), normal inguinal (R), normal other, normal posterior cervical (L), normal posterior cervical (R), normal submandibular (L), normal submandibular (R), normal supraclavicular (L), normal supraclavicular (R) Manny Nolan MD Sep 12, 2016 19:42
--- NOTE | 2016-09-12 22:30 | Progress Note ---
SUBJECTIVE: The patient is in CCU, she is asleep. The patient appears to be more confused than baseline, not engaged and unable to be engaged, and answer questions appropriately. MENTAL STATUS EXAMINATION: The patient was not able to be engaged. Mood is neutral. Affect is flat. No acute distress. Thought process, there is a paucity of thought content. Thought content, no suicidal or homicidal ideations. ASSESSMENT: 1. Delirium. 2. Chronic obstructive pulmonary disease. PLAN: We will continue to follow and readjust the medications. Eda Pena M.D. DR: TOBY JOB#: [id number] CC:
[2016-09-13] VITALS (22 sets, daily range): BP systolic 73–118; BP diastolic 39–71
[2016-09-13 04:48] LABS: BASOPHILS % (AUTO) 0.9 % (0.0-2.0); EOSINOPHILS % (AUTO) 2.8 % (0.0-3.0); LYMPHOCYTES % (AUTO) 19.2 % (20.0-45.0); MEAN CORPUSCULAR HEMOGLOBIN 30.2 PG (27.0-31.0); MEAN CORPUSCULAR HGB CONC 31.3 G/DL (32.0-36.0); MEAN CORPUSCULAR VOLUME 96 FL (80-99); MEAN PLATELET VOLUME 6.5 FL (6.5-10.1); MONOCYTES % (AUTO) 10.3 % (1.0-10.0); NEUTROPHILS % (AUTO) 66.7 % (45.0-75.0); PLATELET COUNT 132 K/UL (150-450); RED CELL DISTRIBUTION WIDTH 14.6 % (11.6-14.8); WHITE BLOOD COUNT 5.3 K/UL (4.8-10.8)
[2016-09-13 05:37] LABS: CALCIUM 8.3 mg/dL (8.6-10.2); CHLORIDE 94 mEQ/L (98-107); CREATININE 3.1 mg/dL (0.5-0.9); HEMOLYSIS 6; POTASSIUM 4.2 mEQ/L (3.4-4.9); SODIUM 142 mEQ/L (135-145)
[2016-09-13 05:43] LABS: ANION GAP 9 (5-15); CARBON DIOXIDE 39 mEQ/L (20-30)
[2016-09-13] MEDS: Revatio 20mg tab ORAL SCH (05:49)
[2016-09-13] MEDS: Miralax 17gm pkt ORAL SCH (09:00)
[2016-09-13] MEDS: Heparin 5000 units/ml inj SUBQ SCH ×2 (09:00→20:58)
[2016-09-13] MEDS: Nystatin Powder 100,000 units/gm 15gm TOPIC SCH ×3 (09:00→18:20)
[2016-09-13] MEDS: Pantoprazole Inj IVP SCH ×2 (09:00→20:57)
[2016-09-13] MEDS: Ertapenem 1 GM in NS 55 ML IVPB SCH (09:00)
[2016-09-13 09:01] LABS: ABG ALLEN TEST POSITIVE; ABG BASE EXCESS 12.5; ABG PCO2 82.9 mmHg (35.0-45.0)
--- NOTE | 2016-09-13 09:37 | General Progress Note ---
Assessment/Plan Status: stable - from respiratory stand, deteriorating - from renal stand Status Narrative Cr higher- BP low Assessment/Plan CKD- and acute renal failure Acute respiratory failure High K Obese COPD , rising Co2 CHF, Diastolic MINA UTI Anemia GI Bleed, GI bleeding At Fib Pulm HTN Low B12 Plan; BIPAP- Stop Sildenifil Albumin bollous Optimize cardiac status- Monitor renal parameters and lytes- Avoid nephrotoxics B12 SQ- PO Folate Subjective ROS Limited/Unobtainable: Yes Allergies: Coded Allergies: AMOXICILLIN (Verified Allergy, Mild, RASH, 12/25/09) MORPHINE (Unverified Allergy, Unknown, 09/06/16) PENICILLINS (Unverified Allergy, Unknown, 04/06/16) Objective Last 24 Hour Vital Signs Date Time Temp Pulse Resp B/P Pulse Ox O2 Delivery O2 Flow Rate FiO2 09/13/16 08:35 78 16 100 Full Face 50 09/13/16 08:00 98.1 83 17 90/48 98 Bi-pap 35 09/13/16 08:00 83 09/13/16 07:00 74 21 99/56 100 Bi-pap 35 09/13/16 06:40 Bi-pap 35 09/13/16 06:40 94 Bi-pap 35 09/13/16 06:40 78 26 98 Full Face 35 09/13/16 06:00 76 21 115/57 100 Bi-pap 35 09/13/16 05:34 80 21 118/71 99 Bi-pap 35 09/13/16 05:20 77 18 96 Facial 35 09/13/16 05:00 98.3 76 21 73/39 97 Bi-pap 35 09/13/16 05:00 35 09/13/16 04:00 45 09/13/16 04:00 98.3 76 21 103/59 97 Bi-pap 45 09/13/16 04:00 75 09/13/16 03:00 75 21 83/43 92 Bi-pap 45 09/13/16 02:33 81 19 99 Facial 45 09/13/16 02:00 82 21 111/60 92 Bi-pap 45 09/13/16 01:02 81 14 96 Facial 45 09/13/16 01:00 80 21 99/48 92 Bi-pap 45 09/13/16 00:00 97.5 81 19 111/63 95 Bi-pap 50 09/13/16 00:00 50 8/7/17 00:00 83 09/12/16 23:00 81 21 107/83 92 Bi-pap 50 09/12/16 22:57 84 19 91 Facial 50 09/12/16 22:00 83 21 98/57 97 Bi-pap 50 09/12/16 21:10 83 20 99 Facial 50 09/12/16 21:00 81 21 100/53 97 Bi-pap 50 09/12/16 20:00 98.3 86 21 103/53 97 Bi-pap 60 09/12/16 20:00 74 09/12/16 20:00 50 09/12/16 19:01 Bi-pap 35 09/12/16 19:00 88 25 104/58 98 Bi-pap 35 09/12/16 19:00 85 25 95/52 95 Bi-pap 35 09/12/16 18:43 89 20 93 Facial 35 09/12/16 18:40 98 Bi-pap 35 09/12/16 18:33 35 09/12/16 18:00 88 25 104/58 98 Bi-pap 35 09/12/16 17:15 85 27 94 Facial 35 09/12/16 17:00 95 17 106/59 93 Bi-pap 35 09/12/16 16:42 97.5 90 24 100/51 95 Bi-pap 35 09/12/16 16:12 87 09/12/16 16:12 35 09/12/16 16:00 97.5 90 24 100/51 95 Bi-pap 35 09/12/16 15:10 88 22 95 Facial 35 09/12/16 15:00 93 22 108/63 96 Bi-pap 35 09/12/16 14:00 88 28 93/55 96 Bi-pap 35 09/12/16 13:29 89 28 93 Facial 35 09/12/16 13:00 93 23 95/47 93 Bi-pap 35 09/12/16 12:54 87 09/12/16 12:00 98.3 87 21 94/58 97 Bi-pap 35 09/12/16 12:00 35 09/12/16 11:00 88 25 92 Facial 35 09/12/16 11:00 86 15 104/51 96 Bi-pap 45 09/12/16 10:41 45 09/12/16 10:00 83 23 109/74 97 Bi-pap 45 Intake and Output 8/6/17 8/7/17 19:00 07:00 Intake Total 555 ml 60 ml Output Total 110 ml 110 ml Balance 445 ml -50 ml Intake Oral 500 ml IV Total 55 ml Other 60 ml Output Urine Total 110 ml 110 ml Laboratory Tests 09/13/16 04:00: White Blood Count 5.3, Red Blood Count 3.20L, Hemoglobin 9.7L, Hematocrit 30.9L , Mean Corpuscular Volume 96, Mean Corpuscular Hemoglobin 30.2, Mean Corpuscular Hemoglobin Concent 31.3L, Red Cell Distribution Width 14.6, Platelet Count 132L, Mean Platelet Volume 6.5, Neutrophils (%) (Auto) 66.7, Lymphocytes (%) (Auto) 19.2L, Monocytes (%) (Auto) 10.3H, Eosinophils (%) (Auto ) 2.8, Basophils (%) (Auto) 0.9, Sodium Level 142, Potassium Level 4.2, Chloride Level 94L, Carbon Dioxide Level 39H, Anion Gap 9, Blood Urea Nitrogen 53H, Creatinine 3.1H, Estimat Glomerular Filtration Rate , Glucose Level 137H, Calcium Level 8.3L 09/13/16 08:42: Arterial Blood pH 7.315L, Arterial Blood Partial Pressure CO2 82.9*H, Arterial Blood Partial Pressure O2 158.3H, Arterial Blood HCO3 41.3H, Arterial Blood Oxygen Saturation 98.8H, Arterial Blood Base Excess 12.5, Mike Test Positive Height (Feet): 5 Height (Inches): 4.00 Weight (Pounds): 326 General Appearance: other - bipap Cardiovascular: normal rate Respiratory/Chest: decreased breath sounds Abdomen: other - obese Objective no change COURTNEY LOPEZ Sep 13, 2016 09:37
[2016-09-13 10:25] LABS: BILIRUBIN,DIRECT 0.1 mg/dL (0.1-0.3); TOTAL PROTEIN 6.8 g/dL (6.6-8.7)
--- NOTE | 2016-09-13 10:34 | General Progress Note ---
Assessment/Plan Assessment/Plan Assessment - UGIB - resolved - Anemia-Last EGD/Colon 05/2014 (duodenal AVM- cauterized, mild diverticulosis) - Chronic hypercapnic resp failure - Renal failure - Morbid obesity - CHF - atrial fibrillation Recommendations - UGI noted - not safe for endoscopy - Rx empirically with H2B - Monitor H&H - Transfuse PRN - Elevate HOB - PO as tolerated Subjective Allergies: Coded Allergies: AMOXICILLIN (Verified Allergy, Mild, RASH, 12/25/09) MORPHINE (Unverified Allergy, Unknown, 09/06/16) PENICILLINS (Unverified Allergy, Unknown, 04/06/16) Subjective seen in ICU d/w RN doing better eating well when off of BIPAP no vomiting Objective Last 24 Hour Vital Signs Date Time Temp Pulse Resp B/P Pulse Ox O2 Delivery O2 Flow Rate FiO2 09/13/16 08:35 78 16 100 Full Face 50 09/13/16 08:00 98.1 83 17 90/48 98 Bi-pap 35 09/13/16 08:00 83 09/13/16 07:00 74 21 99/56 100 Bi-pap 35 09/13/16 06:40 Bi-pap 35 09/13/16 06:40 94 Bi-pap 35 09/13/16 06:40 78 26 98 Full Face 35 09/13/16 06:00 76 21 115/57 100 Bi-pap 35 09/13/16 05:34 80 21 118/71 99 Bi-pap 35 09/13/16 05:20 77 18 96 Facial 35 09/13/16 05:00 98.3 76 21 73/39 97 Bi-pap 35 09/13/16 05:00 35 09/13/16 04:00 45 09/13/16 04:00 98.3 76 21 103/59 97 Bi-pap 45 09/13/16 04:00 75 09/13/16 03:00 75 21 83/43 92 Bi-pap 45 09/13/16 02:33 81 19 99 Facial 45 09/13/16 02:00 82 21 111/60 92 Bi-pap 45 09/13/16 01:02 81 14 96 Facial 45 09/13/16 01:00 80 21 99/48 92 Bi-pap 45 09/13/16 00:00 97.5 81 19 111/63 95 Bi-pap 50 09/13/16 00:00 50 8/7/17 00:00 83 09/12/16 23:00 81 21 107/83 92 Bi-pap 50 09/12/16 22:57 84 19 91 Facial 50 09/12/16 22:00 83 21 98/57 97 Bi-pap 50 09/12/16 21:10 83 20 99 Facial 50 09/12/16 21:00 81 21 100/53 97 Bi-pap 50 09/12/16 20:00 98.3 86 21 103/53 97 Bi-pap 60 09/12/16 20:00 74 09/12/16 20:00 50 09/12/16 19:01 Bi-pap 35 09/12/16 19:00 88 25 104/58 98 Bi-pap 35 09/12/16 19:00 85 25 95/52 95 Bi-pap 35 09/12/16 18:43 89 20 93 Facial 35 09/12/16 18:40 98 Bi-pap 35 09/12/16 18:33 35 09/12/16 18:00 88 25 104/58 98 Bi-pap 35 09/12/16 17:15 85 27 94 Facial 35 09/12/16 17:00 95 17 106/59 93 Bi-pap 35 09/12/16 16:42 97.5 90 24 100/51 95 Bi-pap 35 09/12/16 16:12 87 09/12/16 16:12 35 09/12/16 16:00 97.5 90 24 100/51 95 Bi-pap 35 09/12/16 15:10 88 22 95 Facial 35 09/12/16 15:00 93 22 108/63 96 Bi-pap 35 09/12/16 14:00 88 28 93/55 96 Bi-pap 35 09/12/16 13:29 89 28 93 Facial 35 09/12/16 13:00 93 23 95/47 93 Bi-pap 35 09/12/16 12:54 87 09/12/16 12:00 98.3 87 21 94/58 97 Bi-pap 35 09/12/16 12:00 35 09/12/16 11:00 88 25 92 Facial 35 09/12/16 11:00 86 15 104/51 96 Bi-pap 45 09/12/16 10:41 45 Intake and Output 09/12/16 09/13/16 19:00 07:00 Intake Total 555 ml 60 ml Output Total 110 ml 110 ml Balance 445 ml -50 ml Intake Oral 500 ml IV Total 55 ml Other 60 ml Output Urine Total 110 ml 110 ml Laboratory Tests 09/13/16 04:00: White Blood Count 5.3, Red Blood Count 3.20L, Hemoglobin 9.7L, Hematocrit 30.9L , Mean Corpuscular Volume 96, Mean Corpuscular Hemoglobin 30.2, Mean Corpuscular Hemoglobin Concent 31.3L, Red Cell Distribution Width 14.6, Platelet Count 132L, Mean Platelet Volume 6.5, Neutrophils (%) (Auto) 66.7, Lymphocytes (%) (Auto) 19.2L, Monocytes (%) (Auto) 10.3H, Eosinophils (%) (Auto ) 2.8, Basophils (%) (Auto) 0.9, Sodium Level 142, Potassium Level 4.2, Chloride Level 94L, Carbon Dioxide Level 39H, Anion Gap 9, Blood Urea Nitrogen 53H, Creatinine 3.1H, Estimat Glomerular Filtration Rate , Glucose Level 137H, Calcium Level 8.3L, Phosphorus Level 6.0H, Total Bilirubin 0.3, Direct Bilirubin 0.1, Aspartate Amino Transf (AST/SGOT) 11, Alanine Aminotransferase ( ALT/SGPT) 5, Alkaline Phosphatase 56, Total Protein 6.8, Albumin 3.3L 09/13/16 08:42: Arterial Blood pH 7.315L, Arterial Blood Partial Pressure CO2 82.9*H, Arterial Blood Partial Pressure O2 158.3H, Arterial Blood HCO3 41.3H, Arterial Blood Oxygen Saturation 98.8H, Arterial Blood Base Excess 12.5, Mike Test Positive Height (Feet): 5 Height (Inches): 4.00 Weight (Pounds): 326 Objective Obese WW NCAT supple Coarse BS, ronchi RR Abd soft NT ND, obese (+) edema Neuro - arousable, responsive BRETT DALE Sep 13, 2016 10:34
--- NOTE | 2016-09-13 11:11 | Infectious Diseases Prog Note ---
Assessment/Plan Assessment/Plan antibiotics : ertapenem A 1. e.coli esbl UTI 2. DM 3. renal failure 4. CHF P 1. continue ertapenem 2 more days 2. will follow up cultures Subjective ROS Limited/Unobtainable: Yes Constitutional: Denies: chills, fever Respiratory: Denies: dry cough, shortness of breath Gastrointestinal/Abdominal: Denies: diarrhea, nausea, vomiting Musculoskeletal: Denies: pain Allergies: Coded Allergies: AMOXICILLIN (Verified Allergy, Mild, RASH, 12/25/09) MORPHINE (Unverified Allergy, Unknown, 09/06/16) PENICILLINS (Unverified Allergy, Unknown, 04/06/16) Objective Vital Signs Last 24 Hour Vital Signs Date Time Temp Pulse Resp B/P Pulse Ox O2 Delivery O2 Flow Rate FiO2 09/13/16 08:35 78 16 100 Full Face 50 09/13/16 08:00 98.1 83 17 90/48 98 Bi-pap 35 09/13/16 08:00 83 09/13/16 07:00 74 21 99/56 100 Bi-pap 35 09/13/16 06:40 Bi-pap 35 09/13/16 06:40 94 Bi-pap 35 09/13/16 06:40 78 26 98 Full Face 35 09/13/16 06:00 76 21 115/57 100 Bi-pap 35 09/13/16 05:34 80 21 118/71 99 Bi-pap 35 09/13/16 05:20 77 18 96 Facial 35 09/13/16 05:00 98.3 76 21 73/39 97 Bi-pap 35 09/13/16 05:00 35 09/13/16 04:00 45 09/13/16 04:00 98.3 76 21 103/59 97 Bi-pap 45 09/13/16 04:00 75 09/13/16 03:00 75 21 83/43 92 Bi-pap 45 09/13/16 02:33 81 19 99 Facial 45 09/13/16 02:00 82 21 111/60 92 Bi-pap 45 09/13/16 01:02 81 14 96 Facial 45 09/13/16 01:00 80 21 99/48 92 Bi-pap 45 09/13/16 00:00 97.5 81 19 111/63 95 Bi-pap 50 09/13/16 00:00 50 09/13/16 00:00 83 09/12/16 23:00 81 21 107/83 92 Bi-pap 50 09/12/16 22:57 84 19 91 Facial 50 09/12/16 22:00 83 21 98/57 97 Bi-pap 50 09/12/16 21:10 83 20 99 Facial 50 09/12/16 21:00 81 21 100/53 97 Bi-pap 50 09/12/16 20:00 98.3 86 21 103/53 97 Bi-pap 60 09/12/16 20:00 74 09/12/16 20:00 50 09/12/16 19:01 Bi-pap 35 09/12/16 19:00 88 25 104/58 98 Bi-pap 35 09/12/16 19:00 85 25 95/52 95 Bi-pap 35 09/12/16 18:43 89 20 93 Facial 35 09/12/16 18:40 98 Bi-pap 35 09/12/16 18:33 35 09/12/16 18:00 88 25 104/58 98 Bi-pap 35 09/12/16 17:15 85 27 94 Facial 35 09/12/16 17:00 95 17 106/59 93 Bi-pap 35 09/12/16 16:42 97.5 90 24 100/51 95 Bi-pap 35 09/12/16 16:12 87 09/12/16 16:12 35 09/12/16 16:00 97.5 90 24 100/51 95 Bi-pap 35 09/12/16 15:10 88 22 95 Facial 35 09/12/16 15:00 93 22 108/63 96 Bi-pap 35 09/12/16 14:00 88 28 93/55 96 Bi-pap 35 09/12/16 13:29 89 28 93 Facial 35 09/12/16 13:00 93 23 95/47 93 Bi-pap 35 09/12/16 12:54 87 09/12/16 12:00 98.3 87 21 94/58 97 Bi-pap 35 09/12/16 12:00 35 Height (Feet): 5 Height (Inches): 4.00 Weight (Pounds): 326 Respiratory/Chest: lungs clear Cardiovascular: normal rate, regular rhythm, no gallop/murmur Abdomen: soft, non tender Extremities: other - + edema Laboratory Tests Test 09/13/16 04:00 09/13/16 08:42 White Blood Count 5.3 K/UL (4.8-10.8) Red Blood Count 3.20 M/UL (4.20-5.40) L Hemoglobin 9.7 G/DL (12.0-16.0) L Hematocrit 30.9 % (37.0-47.0) L Mean Corpuscular Volume 96 FL (80-99) Mean Corpuscular Hemoglobin 30.2 PG (27.0-31.0) Mean Corpuscular Hemoglobin Concent 31.3 G/DL (32.0-36.0) L Red Cell Distribution Width 14.6 % (11.6-14.8) Platelet Count 132 K/UL (150-450) L Mean Platelet Volume 6.5 FL (6.5-10.1) Neutrophils (%) (Auto) 66.7 % (45.0-75.0) Lymphocytes (%) (Auto) 19.2 % (20.0-45.0) L Monocytes (%) (Auto) 10.3 % (1.0-10.0) H Eosinophils (%) (Auto) 2.8 % (0.0-3.0) Basophils (%) (Auto) 0.9 % (0.0-2.0) Sodium Level 142 mEQ/L (135-145) Potassium Level 4.2 mEQ/L (3.4-4.9) Chloride Level 94 mEQ/L (98-107) L Carbon Dioxide Level 39 mEQ/L (20-30) H Anion Gap 9 (5-15) Blood Urea Nitrogen 53 mg/dL (7-23) H Creatinine 3.1 mg/dL (0.5-0.9) H Estimat Glomerular Filtration Rate mL/min (>60) Glucose Level 137 mg/dL (74-106) H Calcium Level 8.3 mg/dL (8.6-10.2) L Phosphorus Level 6.0 mg/dL (2.5-4.8) H Total Bilirubin 0.3 mg/dL (0.0-1.2) Direct Bilirubin 0.1 mg/dL (0.1-0.3) Aspartate Amino Transf (AST/SGOT) 11 U/L (5-40) Alanine Aminotransferase (ALT/SGPT) 5 U/L (3-33) Alkaline Phosphatase 56 U/L (35-104) Total Protein 6.8 g/dL (6.6-8.7) Albumin 3.3 g/dL (3.5-5.2) L Arterial Blood pH 7.315 (7.350-7.450) Arterial Blood Partial Pressure CO2 82.9 mmHg (35.0-45.0) *H Arterial Blood Partial Pressure O2 158.3 mmHg (75.0-100.0) H Arterial Blood HCO3 41.3 mmol/L (22.0-26.0) H Arterial Blood Oxygen Saturation 98.8 % (92.0-98.0) H Arterial Blood Base Excess 12.5 Mike Test Positive TATIANNA JONES Sep 13, 2016 11:11
--- NOTE | 2016-09-13 11:39 | General Progress Note ---
Assessment/Plan Status: progressing Assessment/Plan 1. Acute respiratory failure requiring BiPAP with respiratory acidosis --on continuous Bipap hs and prn -patient now in ICU, will be transfered out today - Dr Anju llanos 2. Acute gastrointestinal bleed with acute anemia requiring blood transfusion. -s/p BT 4 units, H/H stable, no more episodes of hematemesis -diet was advanced by GI currently on soft diet tolerating diet - follow Dr Rodriguez recommendations, UGI is limited study no ulcers seen, has esophageal dysmotility -continue PPI -not safe for EGD at this time 3. Acute kidney injury on chronic kidney disease. now with oliguria -stable, renal US noted - follow Dr Zamora recommendations, lasix drip to be ordered by Dr. Rene 4. Hyperkalemia., resolved. 5. Acute diastolic ongestive heart failure. - lasix drip to be ordered - Dr Peralta cardio 6. Atrial fibrillation. - off eliquis for now, at risk for cva 7. Pulmonary hypertension. - on sildanefil 8. Morbid obesity: diet and excercise when medically stable 9. Chronic obstructive pulmonary disease. continue nebulizer 10. presumed MINA bipap, may benefit from Trillogy vent as outpatient as has not had a formal sleep study 11. UTI Ecoli ESBL with sepsis: antibioitics per ID, Ertepenam for 2 more days 12. morbid obesity: diet and weight loss encouraged 13. DJD: will need pt/ot, home health once dc, will order large wheel chair, hospital bed for home use 14. hypotension: improved PT/OT when clinically more stable discussed with ICU nurse and Dr. Rene Guarded condition Subjective Date patient seen: Sep 13, 2016 Allergies: Coded Allergies: AMOXICILLIN (Verified Allergy, Mild, RASH, 12/25/09) MORPHINE (Unverified Allergy, Unknown, 09/06/16) PENICILLINS (Unverified Allergy, Unknown, 04/06/16) Subjective The patient was seen and examined at bedside and all new and available data was reviewed in the patients chart. I agree with the above findings, impression and plan. (Patient seen earlier today. Signature stamp does not reflect patient encounter time.). -Manny Nolan MD Objective Last 24 Hour Vital Signs Date Time Temp Pulse Resp B/P Pulse Ox O2 Delivery O2 Flow Rate FiO2 09/13/16 10:00 83 17 90/48 97 Nasal Cannula 09/13/16 10:00 21 111/51 97 Nasal Cannula 09/13/16 09:00 90 16 102/54 96 Nasal Cannula 09/13/16 09:00 83 17 90/48 96 Nasal Cannula 09/13/16 08:35 78 16 100 Full Face 50 09/13/16 08:00 98.1 83 17 90/48 98 Bi-pap 35 09/13/16 08:00 83 09/13/16 07:00 74 21 99/56 100 Bi-pap 35 09/13/16 06:40 Bi-pap 35 09/13/16 06:40 94 Bi-pap 35 09/13/16 06:40 78 26 98 Full Face 35 09/13/16 06:00 76 21 115/57 100 Bi-pap 35 09/13/16 05:34 80 21 118/71 99 Bi-pap 35 09/13/16 05:20 77 18 96 Facial 35 09/13/16 05:00 98.3 76 21 73/39 97 Bi-pap 35 09/13/16 05:00 35 09/13/16 04:00 45 09/13/16 04:00 98.3 76 21 103/59 97 Bi-pap 45 09/13/16 04:00 75 09/13/16 03:00 75 21 83/43 92 Bi-pap 45 09/13/16 02:33 81 19 99 Facial 45 09/13/16 02:00 82 21 111/60 92 Bi-pap 45 09/13/16 01:02 81 14 96 Facial 45 09/13/16 01:00 80 21 99/48 92 Bi-pap 45 09/13/16 00:00 97.5 81 19 111/63 95 Bi-pap 50 09/13/16 00:00 50 09/13/16 00:00 83 09/12/16 23:00 81 21 107/83 92 Bi-pap 50 09/12/16 22:57 84 19 91 Facial 50 09/12/16 22:00 83 21 98/57 97 Bi-pap 50 09/12/16 21:10 83 20 99 Facial 50 09/12/16 21:00 81 21 100/53 97 Bi-pap 50 09/12/16 20:00 98.3 86 21 103/53 97 Bi-pap 60 09/12/16 20:00 74 09/12/16 20:00 50 09/12/16 19:01 Bi-pap 35 09/12/16 19:00 88 25 104/58 98 Bi-pap 35 09/12/16 19:00 85 25 95/52 95 Bi-pap 35 09/12/16 18:43 89 20 93 Facial 35 09/12/16 18:40 98 Bi-pap 35 09/12/16 18:33 35 09/12/16 18:00 88 25 104/58 98 Bi-pap 35 09/12/16 17:15 85 27 94 Facial 35 09/12/16 17:00 95 17 106/59 93 Bi-pap 35 09/12/16 16:42 97.5 90 24 100/51 95 Bi-pap 35 09/12/16 16:12 87 09/12/16 16:12 35 09/12/16 16:00 97.5 90 24 100/51 95 Bi-pap 35 09/12/16 15:10 88 22 95 Facial 35 09/12/16 15:00 93 22 108/63 96 Bi-pap 35 09/12/16 14:00 88 28 93/55 96 Bi-pap 35 09/12/16 13:29 89 28 93 Facial 35 09/12/16 13:00 93 23 95/47 93 Bi-pap 35 09/12/16 12:54 87 09/12/16 12:00 98.3 87 21 94/58 97 Bi-pap 35 09/12/16 12:00 35 Intake and Output 09/12/16 09/13/16 19:00 07:00 Intake Total 555 ml 60 ml Output Total 110 ml 110 ml Balance 445 ml -50 ml Intake Oral 500 ml IV Total 55 ml Other 60 ml Output Urine Total 110 ml 110 ml Laboratory Tests 09/13/16 04:00: White Blood Count 5.3, Red Blood Count 3.20L, Hemoglobin 9.7L, Hematocrit 30.9L , Mean Corpuscular Volume 96, Mean Corpuscular Hemoglobin 30.2, Mean Corpuscular Hemoglobin Concent 31.3L, Red Cell Distribution Width 14.6, Platelet Count 132L, Mean Platelet Volume 6.5, Neutrophils (%) (Auto) 66.7, Lymphocytes (%) (Auto) 19.2L, Monocytes (%) (Auto) 10.3H, Eosinophils (%) (Auto ) 2.8, Basophils (%) (Auto) 0.9, Sodium Level 142, Potassium Level 4.2, Chloride Level 94L, Carbon Dioxide Level 39H, Anion Gap 9, Blood Urea Nitrogen 53H, Creatinine 3.1H, Estimat Glomerular Filtration Rate , Glucose Level 137H, Calcium Level 8.3L, Phosphorus Level 6.0H, Total Bilirubin 0.3, Direct Bilirubin 0.1, Aspartate Amino Transf (AST/SGOT) 11, Alanine Aminotransferase ( ALT/SGPT) 5, Alkaline Phosphatase 56, Total Protein 6.8, Albumin 3.3L 09/13/16 08:42: Arterial Blood pH 7.315L, Arterial Blood Partial Pressure CO2 82.9*H, Arterial Blood Partial Pressure O2 158.3H, Arterial Blood HCO3 41.3H, Arterial Blood Oxygen Saturation 98.8H, Arterial Blood Base Excess 12.5, Mike Test Positive Height (Feet): 5 Height (Inches): 4.00 Weight (Pounds): 326 General Appearance: WD/WN, morbidly obese EENT: PERRL/EOMI Neck: non-tender Cardiovascular: normal peripheral pulses Respiratory/Chest: chest wall non-tender, lungs clear Abdomen: normal bowel sounds, soft Extremities: normal range of motion Edema: no edema noted Arm (L), no edema noted Arm (R), 3+ Leg (L), 3+ Leg (R), 3+ Pedal (L), 3+ Pedal (R), 3+ Generalized Edema: severe edema Neurologic: alert, oriented x 3 Lymphatic: normal anterior cervical (L), normal anterior cervical (R), normal axillary (L), normal axillary (R), normal inguinal (L), normal inguinal (R), normal other, normal posterior cervical (L), normal posterior cervical (R), normal submandibular (L), normal submandibular (R), normal supraclavicular (L), normal supraclavicular (R) Manny Nolan MD Sep 13, 2016 11:39
--- NOTE | 2016-09-13 11:41 | Pulmonolgy Critical Care Note ---
Critical Care - Asmt/Plan Problems: (1) Acute respiratory failure (2) CHF (congestive heart failure) (3) COPD (chronic obstructive pulmonary disease) (4) Pickwickian syndrome (5) Morbid obesity Respiratory: monitor respiratory rate, adjust FIO2, CXR Cardiac: d/c hall monitor Renal: F/U I&O, other - start laxis drip Infectious Disease: check cultures, other - on Ertapenem Gastrointestinal: continue feedings/current rate Endocrine: monitor blood sugar Hematologic: monitor H/H Neurologic: PRN Ativan, PRN Morphine Affect: PRN ativan Prophylaxis: Protonix Notes Reviewed: rapier insertion loom fixer, cardio, renal 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: consultants, case management specialistmanager park - Objective Last 24 Hour Vital Signs Date Time Temp Pulse Resp B/P Pulse Ox O2 Delivery O2 Flow Rate FiO2 09/13/16 10:00 83 17 90/48 97 Nasal Cannula 09/13/16 09:00 83 9048 96 Nasal Cannula 09/13/16 08:35 78 16 100 Full Face 50 09/13/16 08:00 98.1 83 17 90/48 98 Bi-pap 35 09/13/16 08:00 83 09/13/16 07:00 74 21 99/56 100 Bi-pap 35 09/13/16 06:40 Bi-pap 35 09/13/16 06:40 94 Bi-pap 35 09/13/16 06:40 78 26 98 Full Face 35 09/13/16 06:00 76 21 115/57 100 Bi-pap 35 09/13/16 05:34 80 21 118/71 99 Bi-pap 35 09/13/16 05:20 77 18 96 Facial 35 09/13/16 05:00 98.3 76 21 73/39 97 Bi-pap 35 09/13/16 05:00 35 09/13/16 04:00 45 09/13/16 04:00 98.3 76 21 103/59 97 Bi-pap 45 09/13/16 04:00 75 09/13/16 03:00 75 21 83/43 92 Bi-pap 45 09/13/16 02:33 81 19 99 Facial 45 09/13/16 02:00 82 21 111/60 92 Bi-pap 45 09/13/16 01:02 81 14 96 Facial 45 09/13/16 01:00 80 21 99/48 92 Bi-pap 45 09/13/16 00:00 97.5 81 19 111/63 95 Bi-pap 50 09/13/16 00:00 50 09/13/16 00:00 83 09/12/16 23:00 81 21 107/83 92 Bi-pap 50 09/12/16 22:57 84 19 91 Facial 50 09/12/16 22:00 83 21 98/57 97 Bi-pap 50 09/12/16 21:10 83 20 99 Facial 50 09/12/16 21:00 81 21 100/53 97 Bi-pap 50 09/12/16 20:00 98.3 86 21 103/53 97 Bi-pap 60 09/12/16 20:00 74 09/12/16 20:00 50 09/12/16 19:01 Bi-pap 35 09/12/16 19:00 88 25 104/58 98 Bi-pap 35 09/12/16 19:00 85 25 95/52 95 Bi-pap 35 09/12/16 18:43 89 20 93 Facial 35 09/12/16 18:40 98 Bi-pap 35 09/12/16 18:33 35 09/12/16 18:00 88 25 104/58 98 Bi-pap 35 09/12/ 17:15 85 27 94 Facial 35 09/12/16 17:00 95 17 106/59 93 Bi-pap 35 09/12/16 16:42 97.5 90 24 100/51 95 Bi-pap 35 09/12/ 16:12 87 09/12/16 16:12 35 09/12/16 16:00 97.5 90 24 100/51 95 Bi-pap 35 09/12/16 15:10 88 22 95 Facial 35 09/12/16 15:00 93 22 108/63 96 Bi-pap 35 09/12/16 14:00 88 28 93/55 96 Bi-pap 35 09/12/16 13:29 89 28 93 Facial 35 09/12/ 13:00 93 23 95/47 93 Bi-pap 35 6/17 12:54 87 6/17 12:00 98.3 87 21 94/58 97 Bi-pap 35 6/17 12:00 35 Status: awake Condition: critical HEENT: atraumatic Neck: full ROM Heart: HR/BP stable, HR/BP unstable Abdomen: non-tender, active bowel sounds Extremities: no C/C/E, edema Decubiti: location Critical Care - Subjective ROS Limited/Unobtainable: No ICU Day: 3 Intubation Day: 3 Condition: critical EKG Rhythm: Sinus Rhythm FI02: 50 Sputum Amount: None I&O: Intake and Output 09/12/16 09/13/16 19:00 07:00 Intake Total 555 ml 60 ml Output Total 110 ml 110 ml Balance 445 ml -50 ml Intake Oral 500 ml IV Total 55 ml Other 60 ml Output Urine Total 110 ml 110 ml CXR: no change Labs: Laboratory Tests Test 09/13/16 04:00 09/13/16 08:42 White Blood Count 5.3 K/UL (4.8-10.8) Red Blood Count 3.20 M/UL (4.20-5.40) L Hemoglobin 9.7 G/DL (12.0-16.0) L Hematocrit 30.9 % (37.0-47.0) L Mean Corpuscular Volume 96 FL (80-99) Mean Corpuscular Hemoglobin 30.2 PG (27.0-31.0) Mean Corpuscular Hemoglobin Concent 31.3 G/DL (32.0-36.0) L Red Cell Distribution Width 14.6 % (11.6-14.8) Platelet Count 132 K/UL (150-450) L Mean Platelet Volume 6.5 FL (6.5-10.1) Neutrophils (%) (Auto) 66.7 % (45.0-75.0) Lymphocytes (%) (Auto) 19.2 % (20.0-45.0) L Monocytes (%) (Auto) 10.3 % (1.0-10.0) H Eosinophils (%) (Auto) 2.8 % (0.0-3.0) Basophils (%) (Auto) 0.9 % (0.0-2.0) Sodium Level 142 mEQ/L (135-145) Potassium Level 4.2 mEQ/L (3.4-4.9) Chloride Level 94 mEQ/L (98-107) L Carbon Dioxide Level 39 mEQ/L (20-30) H Anion Gap 9 (5-15) Blood Urea Nitrogen 53 mg/dL (7-23) H Creatinine 3.1 mg/dL (0.5-0.9) H Estimat Glomerular Filtration Rate mL/min (>60) Glucose Level 137 mg/dL (74-106) H Calcium Level 8.3 mg/dL (8.6-10.2) L Phosphorus Level 6.0 mg/dL (2.5-4.8) H Total Bilirubin 0.3 mg/dL (0.0-1.2) Direct Bilirubin 0.1 mg/dL (0.1-0.3) Aspartate Amino Transf (AST/SGOT) 11 U/L (5-40) Alanine Aminotransferase (ALT/SGPT) 5 U/L (3-33) Alkaline Phosphatase 56 U/L (35-104) Total Protein 6.8 g/dL (6.6-8.7) Albumin 3.3 g/dL (3.5-5.2) L Arterial Blood pH 7.315 (7.350-7.450) Arterial Blood Partial Pressure CO2 82.9 mmHg (35.0-45.0) *H Arterial Blood Partial Pressure O2 158.3 mmHg (75.0-100.0) H Arterial Blood HCO3 41.3 mmol/L (22.0-26.0) H Arterial Blood Oxygen Saturation 98.8 % (92.0-98.0) H Arterial Blood Base Excess 12.5 Mike Test Positive ARASH MIRANDA Sep 13, 2016 11:41
--- NOTE | 2016-09-13 13:06 | Diagnostic Imaging Report ---
Indication: Dyspnea Comparison: 09/12/16 A single view chest radiograph was obtained. Findings: Mild interstitial edema is suspected. Heart is enlarged. Left pleural effusion is suspected. There is no definite change. Impression: No significant roll changer the last 24 hours
[2016-09-13] MEDS ORDERED: NS 275ml ONE (16:29)
[2016-09-13] MEDS ORDERED: Miralax 17gm pkt ORAL PRN (18:30)
[2016-09-13] MEDS ORDERED: DuoNeb 0.5-3(2.5)mg/3ml neb HHN PRN (18:30)
--- NOTE | 2016-09-13 21:15 | Progress Note ---
DATE: 09/13/2016 SUBJECTIVE: The patient is stable at baseline. She was very irritable. I was able to be engaged in the evaluation and was able to answer the questions. Compliant with medication. No behavior issues. No anxiety or agitation. However, still somewhat confused and has waxing and waning consciousness. MENTAL STATUS EXAMINATION: The patient is alert and oriented times self and the situation. She is in. Her mood is neutral. Affect is flat. Congruent with mood. Thought process, there is a paucity of thought content. Thought content, there is no suicidal or homicidal ideation. ASSESSMENT: Acute encephalopathy. PLAN: The patient will be continued on current medication. Provide the patient with supportive therapy and reality orientation. Eda Pena M.D. DR: BERTHA JOB#: [id number] CC:
[2016-09-14 04:30] VITALS: BP 100/62
[2016-09-14 04:52] LABS: BASOPHILS % (AUTO) 0.9 % (0.0-2.0); EOSINOPHILS % (AUTO) 2.6 % (0.0-3.0); LYMPHOCYTES % (AUTO) 15.5 % (20.0-45.0); MEAN CORPUSCULAR HEMOGLOBIN 29.3 PG (27.0-31.0); MEAN CORPUSCULAR HGB CONC 30.6 G/DL (32.0-36.0); MEAN CORPUSCULAR VOLUME 96 FL (80-99); MEAN PLATELET VOLUME 6.4 FL (6.5-10.1); MONOCYTES % (AUTO) 8.6 % (1.0-10.0); NEUTROPHILS % (AUTO) 72.5 % (45.0-75.0); PLATELET COUNT 145 K/UL (150-450); RED BLOOD COUNT 3.18 M/UL (4.20-5.40); RED CELL DISTRIBUTION WIDTH 14.1 % (11.6-14.8)
[2016-09-14 05:21] LABS: ALANINE AMINOTRANSFERASE 5 U/L (3-33); ALBUMIN/GLOBULIN RATIO 0.9 (1.0-2.7); ANION GAP 9 (5-15); ASPARTATE AMINO TRANSFERASE 10 U/L (5-40); CALCIUM 8.4 mg/dL (8.6-10.2); CARBON DIOXIDE 39 mEQ/L (20-30); CHLORIDE 95 mEQ/L (98-107); CREATININE 3.1 mg/dL (0.5-0.9); CRP QUANT 2.6 mg/dL (< 0.5); HEMOLYSIS 3; MAGNESIUM 2.1 mg/dL (1.7-2.5); PHOSPHORUS 6.1 mg/dL (2.5-4.8); POTASSIUM 4.5 mEQ/L (3.4-4.9); SODIUM 143 mEQ/L (135-145); TOTAL PROTEIN 7.1 g/dL (6.6-8.7); URIC ACID 8.9 mg/dL (3.0-7.5)
[2016-09-14 08:00] VITALS: BP 110/61
[2016-09-14] MEDS: Heparin 5000 units/ml inj SUBQ SCH ×2 (09:00→21:00)
[2016-09-14] MEDS ORDERED: Ertapenem 500mg ivpb (q24h) IV SCH ×2 (09:00)
--- NOTE | 2016-09-14 09:02 | Diagnostic Imaging Report ---
Indication: DYSPNEA Technique: XRAY CHEST 1 V Comparison:09/07/2016 Findings: The heart remains enlarged. There is pulmonary vascular fusion. Aorta is calcified. No definite pleural fluid. Impression: Cardiomegaly with congestive heart failure, probably increased slightly. No other change.
[2016-09-14] MEDS: Pantoprazole Inj IVP SCH (09:10)
[2016-09-14] MEDS: Ertapenem 0.5 GM in NS 55 ML IV SCH (09:10)
[2016-09-14] MEDS: Miralax 17gm pkt ORAL SCH ×2 (09:11→09:16)
[2016-09-14] MEDS: Nystatin Powder 100,000 units/gm 15gm TOPIC SCH ×3 (09:11→18:19)
--- NOTE | 2016-09-14 09:17 | General Progress Note ---
Assessment/Plan Status: unchanged Status Narrative Cr stable at 3.1 Assessment/Plan CKD- and acute renal failure Acute respiratory failure High K Obese COPD , rising Co2 CHF, Diastolic MINA UTI Anemia GI Bleed, GI bleeding At Fib Pulm HTN Low B12 Plan; BIPAP- On lasix drip add Renvela Stop Sildenifil Albumin bollous Optimize cardiac status- Monitor renal parameters and lytes- Avoid nephrotoxics B12 SQ- PO Folate Subjective ROS Limited/Unobtainable: No Constitutional: Reports: malaise Allergies: Coded Allergies: AMOXICILLIN (Verified Allergy, Mild, RASH, 12/25/09) MORPHINE (Unverified Allergy, Unknown, 09/06/16) PENICILLINS (Unverified Allergy, Unknown, 04/06/16) Objective Last 24 Hour Vital Signs Date Time Temp Pulse Resp B/P Pulse Ox O2 Delivery O2 Flow Rate FiO2 09/14/16 07:27 Venturi Mask 12.0 50 09/14/16 07:26 96 Venturi Mask 12.0 50 09/14/16 05:26 77 22 95 Facial 50 09/14/16 04:30 97.5 82 23 100/62 99 Bi-pap 50 09/14/16 04:00 82 09/14/16 04:00 50 09/14/16 03:15 76 20 96 Facial 50 09/14/16 01:17 86 22 95 Full Face 50 09/14/16 00:00 35 09/14/16 00:00 88 09/13/16 23:46 97.6 86 23 101/69 99 Bi-pap 35.0 09/13/16 23:11 80 23 100 Full Face 50 09/13/16 21:25 77 24 100 Full Face 50 09/13/16 20:00 97.5 86 18 117/65 98 Bi-pap 35.0 09/13/16 20:00 84 09/13/16 20:00 35 09/13/16 19:59 94 Bi-pap 35 09/13/16 19:59 Bi-pap 50 09/13/16 19:57 82 23 100 Full Face 50 09/13/16 18:45 114 09/13/16 18:00 86 22 103/66 98 Bi-pap 35.0 09/13/16 17:00 84 20 107/60 98 Bi-pap 35.0 09/13/16 17:00 84 24 107/60 97 Nasal Cannula 3.0 09/13/16 17:00 81 18 100 Full Face 50 09/13/16 16:00 3.0 09/13/16 16:00 97.1 88 22 102/52 97 Nasal Cannula 3.0 09/13/16 16:00 88 09/13/16 15:29 82 23 99 Full Face 50 09/13/16 15:00 84 26 96/51 97 Nasal Cannula 3.0 09/13/16 14:00 80 24 98/43 97 Nasal Cannula 3.0 09/13/16 13:00 85 22 112/65 99 Nasal Cannula 3.0 09/13/16 12:58 78 19 98 09/13/16 12:00 82 09/13/16 12:00 3.0 09/13/16 12:00 97.4 82 21 90/48 99 Nasal Cannula 3.0 09/13/16 11:40 78 16 95 09/13/16 11:00 83 20 107/53 95 Nasal Cannula 3.0 09/13/16 10:00 83 17 90/48 97 Nasal Cannula 09/13/16 10:00 21 111/51 97 Nasal Cannula Intake and Output 09/13/16 09/14/16 19:00 07:00 Intake Total 635 ml 91.66 ml Output Total 190 ml 235 ml Balance 445 ml -143.34 ml IV Total 415 ml 91.66 ml Other 220 ml Output Urine Total 190 ml 235 ml # Bowel Movements 2 Laboratory Tests 09/14/16 03:45: White Blood Count 5.0, Red Blood Count 3.18L, Hemoglobin 9.3L, Hematocrit 30.5L , Mean Corpuscular Volume 96, Mean Corpuscular Hemoglobin 29.3, Mean Corpuscular Hemoglobin Concent 30.6L, Red Cell Distribution Width 14.1, Platelet Count 145L, Mean Platelet Volume 6.4L, Neutrophils (%) (Auto) 72.5, Lymphocytes (%) (Auto) 15.5L, Monocytes (%) (Auto) 8.6, Eosinophils (%) (Auto) 2.6, Basophils (%) (Auto) 0.9, Sodium Level 143, Potassium Level 4.5, Chloride Level 95L, Carbon Dioxide Level 39H, Anion Gap 9, Blood Urea Nitrogen 54H, Creatinine 3.1H, Estimat Glomerular Filtration Rate , Glucose Level 114H, Uric Acid 8.9H, Calcium Level 8.4L, Phosphorus Level 6.1H, Magnesium Level 2.1, Total Bilirubin 0.3, Aspartate Amino Transf (AST/SGOT) 10, Alanine Aminotransferase (ALT/SGPT) 5, Alkaline Phosphatase 57, C-Reactive Protein, Quantitative 2.6H, Pro-B-Type Natriuretic Peptide 9782H, Total Protein 7.1, Albumin 3.4L, Globulin 3.7, Albumin/Globulin Ratio 0.9L Height (Feet): 5 Height (Inches): 4.00 Weight (Pounds): 329 General Appearance: no apparent distress EENT: other - BIPAP Respiratory/Chest: decreased breath sounds Abdomen: other - obese Objective no change COURTNEY LOPEZ Sep 14, 2016 09:17
--- NOTE | 2016-09-14 11:00 | Pulmonology Progress Note ---
Assessment/Plan Problems: (1) Acute respiratory failure (2) CKD (chronic kidney disease) (3) Hyperkalemia (4) COPD (chronic obstructive pulmonary disease) (5) Anemia (6) MINA (obstructive sleep apnea) Assessment/Plan h/h stable off bipap renal us and echo reviewed all meds and notes reviewed taper down fio2 dc planning Subjective ROS Limited/Unobtainable: No Interval Events: comfortable, no acute events. tolerating Allergies: Coded Allergies: AMOXICILLIN (Verified Allergy, Mild, RASH, 12/25/09) MORPHINE (Unverified Allergy, Unknown, 09/06/16) PENICILLINS (Unverified Allergy, Unknown, 04/06/16) Objective Last 24 Hour Vital Signs Date Time Temp Pulse Resp B/P Pulse Ox O2 Delivery O2 Flow Rate FiO2 09/14/16 08:00 97.2 92 20 110/61 99 Nasal Cannula 3.0 09/14/16 07:27 Venturi Mask 12.0 50 09/14/16 07:26 96 Venturi Mask 12.0 50 09/14/16 05:26 77 22 95 Facial 50 09/14/16 04:30 97.5 82 23 100/62 99 Bi-pap 50 09/14/16 04:00 82 09/14/16 04:00 50 09/14/16 03:15 76 20 96 Facial 50 09/14/16 01:17 86 22 95 Full Face 50 09/14/16 00:00 35 09/14/16 00:00 88 09/13/16 23:46 97.6 86 23 101/69 99 Bi-pap 35.0 09/13/16 23:11 80 23 100 Full Face 50 09/13/16 21:25 77 24 100 Full Face 50 09/13/16 20:00 97.5 86 18 117/65 98 Bi-pap 35.0 09/13/16 20:00 84 09/13/16 20:00 35 09/13/16 19:59 94 Bi-pap 35 09/13/16 19:59 Bi-pap 50 09/13/16 19:57 82 23 100 Full Face 50 09/13/16 18:45 114 09/13/16 18:00 86 22 103/66 98 Bi-pap 35.0 09/13/16 17:00 84 20 107/60 98 Bi-pap 35.0 09/13/16 17:00 84 24 107/60 97 Nasal Cannula 3.0 09/13/16 17:00 81 18 100 Full Face 50 09/13/16 16:00 3.0 09/13/16 16:00 97.1 88 22 102/52 97 Nasal Cannula 3.0 09/13/16 16:00 88 09/13/16 15:29 82 23 99 Full Face 50 09/13/16 15:00 84 26 96/51 97 Nasal Cannula 3.0 09/13/16 14:00 80 24 98/43 97 Nasal Cannula 3.0 09/13/16 13:00 85 22 112/65 99 Nasal Cannula 3.0 09/13/16 12:58 78 19 98 09/13/16 12:00 82 09/13/16 12:00 3.0 09/13/16 12:00 97.4 82 21 90/48 99 Nasal Cannula 3.0 09/13/16 11:40 78 16 95 09/13/16 11:00 83 20 107/53 95 Nasal Cannula 3.0 Intake and Output 09/13/16 09/14/16 19:00 07:00 Intake Total 635 ml 91.66 ml Output Total 190 ml 235 ml Balance 445 ml -143.34 ml IV Total 415 ml 91.66 ml Other 220 ml Output Urine Total 190 ml 235 ml # Bowel Movements 2 General Appearance: WD/WN HEENT: normocephalic, atraumatic Respiratory/Chest: chest wall non-tender, lungs clear Cardiovascular: normal peripheral pulses, normal rate, regular rhythm Abdomen: normal bowel sounds, soft, non tender Genitourinary: normal external genitalia Extremities: no cyanosis Skin: no rash 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 Laboratory Tests 09/14/16 03:45: White Blood Count 5.0, Red Blood Count 3.18L, Hemoglobin 9.3L, Hematocrit 30.5L , Mean Corpuscular Volume 96, Mean Corpuscular Hemoglobin 29.3, Mean Corpuscular Hemoglobin Concent 30.6L, Red Cell Distribution Width 14.1, Platelet Count 145L, Mean Platelet Volume 6.4L, Neutrophils (%) (Auto) 72.5, Lymphocytes (%) (Auto) 15.5L, Monocytes (%) (Auto) 8.6, Eosinophils (%) (Auto) 2.6, Basophils (%) (Auto) 0.9, Sodium Level 143, Potassium Level 4.5, Chloride Level 95L, Carbon Dioxide Level 39H, Anion Gap 9, Blood Urea Nitrogen 54H, Creatinine 3.1H, Estimat Glomerular Filtration Rate , Glucose Level 114H, Uric Acid 8.9H, Calcium Level 8.4L, Phosphorus Level 6.1H, Magnesium Level 2.1, Total Bilirubin 0.3, Aspartate Amino Transf (AST/SGOT) 10, Alanine Aminotransferase (ALT/SGPT) 5, Alkaline Phosphatase 57, C-Reactive Protein, Quantitative 2.6H, Pro-B-Type Natriuretic Peptide 9782H, Total Protein 7.1, Albumin 3.4L, Globulin 3.7, Albumin/Globulin Ratio 0.9L Current Medications Medications (Trade) Dose Ordered Sig/Kalyn Route PRN Reason Start Time Stop Time Status Last Admin Dose Admin Acetaminophen (Tylenol) 650 mg Q4H PRN ORAL T>100.5 09/13/16 18:30 10/13/16 18:29 09/14/16 10:21 Albuterol/ Ipratropium (DuoNeb 0.5-3(2.5)mg/3ml) 3 ml Q4H PRN HHN Shortness of Breath 09/13/16 18:30 09/18/16 18:29 Dextrose (Dextrose 50%) STAT PRN IV Hypoglycemia 09/13/16 18:15 10/13/16 18:14 Epoetin Santos (Procrit (for ESRD on dialysis)) 7,000 units TUE-TUE-TUE SUBQ 09/15/16 21:00 10/15/16 20:59 Ertapenem/Sodium Chloride (INVanz/Sodium Chloride) 55 ml @ 110 mls/hr Q24H IV 09/14/16 09:00 09/19/16 08:59 09/14/16 09:10 Folic Acid (Folate) 2 mg DAILY ORAL 09/14/16 09:00 10/14/16 08:59 09/14/16 09:10 Furosemide 100 mg/ Dextrose 110 ml @ 11 mls/hr Q10H IV 09/13/16 23:00 10/13/16 22:59 09/14/16 09:19 Heparin Sodium (Porcine) (Heparin 5000 units/ml) 5,000 units EVERY 12 HOURS SUBQ 09/13/16 21:00 10/13/16 20:59 09/14/16 09:00 Letrozole (Femara) 2.5 mg DAILY ORAL 09/14/16 09:00 09/19/16 08:59 09/14/16 09:00 Nystatin (Nystop Powder) 1 applic THREE TIMES A DAY TOPIC 09/13/16 18:00 10/13/16 17:59 09/14/16 09:11 Ondansetron HCl (Zofran) 4 mg Q6H PRN IVP Nausea & Vomiting 09/13/16 18:30 10/13/16 18:29 Pantoprazole (Protonix) 40 mg EVERY 12 HOURS ORAL 09/14/16 21:00 10/14/16 20:59 Polyethylene Glycol (Miralax) 17 gm DAILY ORAL 09/14/16 09:00 10/14/16 08:59 09/14/16 09:16 Polyethylene Glycol (Miralax) 17 gm DAILYPRN PRN ORAL Constipation 09/13/16 18:30 10/13/16 18:29 Pravastatin Sodium (Pravachol) 20 mg BEDTIME ORAL 09/13/16 21:00 10/13/16 20:59 09/13/16 20:57 Sevelamer Carbonate (Renvela) 800 mg THREE TIMES A DAY ORAL 09/14/16 13:00 10/14/16 12:59 Temazepam (Restoril) 15 mg HSPRN PRN ORAL Insomnia 09/13/16 21:00 09/20/16 20:59 ARASH MIRANDA Sep 14, 2016 11:00
[2016-09-14 12:00] VITALS: BP 117/69
--- NOTE | 2016-09-14 13:59 | Cardiology Progress Note ---
Assessment/Plan Assessment/Plan 1. Coffee-ground emesis. 2. Anemia, worsened, chronic. 3. Gastrointestinal bleed. 4. Permanent atrial fibrillation, on anticoagulation with Eliquis. 5. History of pulmonary hypertension of significant degree, treated with sildenafil. 6. Systemic hypertension. 7. Chronic renal insufficiency. 8. Diabetes mellitus 9. repiratotry acdosis 10. hypotension hgb noted low stable tele noted afib bp seem ok off eliquis for now tele noted afib vr ok id off sildenafil Subjective ROS Limited/Unobtainable: Yes Subjective on bipap sleepy Objective Last 24 Hour Vital Signs Date Time Temp Pulse Resp B/P Pulse Ox O2 Delivery O2 Flow Rate FiO2 09/14/16 12:00 97.0 89 16 117/69 97 Nasal Cannula 3.0 09/14/16 08:00 97.2 92 20 110/61 99 Nasal Cannula 3.0 09/14/16 07:27 Venturi Mask 12.0 50 09/14/16 07:26 96 Venturi Mask 12.0 50 09/14/16 05:26 77 22 95 Facial 50 09/14/16 04:30 97.5 82 23 100/62 99 Bi-pap 50 09/14/16 04:00 82 09/14/16 04:00 50 09/14/16 03:15 76 20 96 Facial 50 09/14/16 01:17 86 22 95 Full Face 50 09/14/16 00:00 35 09/14/16 00:00 88 09/13/16 23:46 97.6 86 23 101/69 99 Bi-pap 35.0 09/13/16 23:11 80 23 100 Full Face 50 09/13/16 21:25 77 24 100 Full Face 50 09/13/16 20:00 97.5 86 18 117/65 98 Bi-pap 35.0 09/13/16 20:00 84 09/13/16 20:00 35 09/13/16 19:59 94 Bi-pap 35 09/13/16 19:59 Bi-pap 50 09/13/16 19:57 82 23 100 Full Face 50 09/13/16 18:45 114 09/13/16 18:00 86 22 103/66 98 Bi-pap 35.0 09/13/16 17:00 84 20 107/60 98 Bi-pap 35.0 09/13/16 17:00 84 24 107/60 97 Nasal Cannula 3.0 09/13/16 17:00 81 18 100 Full Face 50 09/13/16 16:00 3.0 09/13/16 16:00 97.1 88 22 102/52 97 Nasal Cannula 3.0 09/13/16 16:00 88 09/13/16 15:29 82 23 99 Full Face 50 09/13/16 15:00 84 26 96/51 97 Nasal Cannula 3.0 09/13/16 14:00 80 24 98/43 97 Nasal Cannula 3.0 General Appearance: no apparent distress Intake and Output 09/13/16 09/14/16 19:00 07:00 Intake Total 635 ml 91.66 ml Output Total 190 ml 235 ml Balance 445 ml -143.34 ml IV Total 415 ml 91.66 ml Other 220 ml Output Urine Total 190 ml 235 ml # Bowel Movements 2 Laboratory Tests Test 09/14/16 03:45 White Blood Count 5.0 K/UL (4.8-10.8) Red Blood Count 3.18 M/UL (4.20-5.40) L Hemoglobin 9.3 G/DL (12.0-16.0) L Hematocrit 30.5 % (37.0-47.0) L Mean Corpuscular Volume 96 FL (80-99) Mean Corpuscular Hemoglobin 29.3 PG (27.0-31.0) Mean Corpuscular Hemoglobin Concent 30.6 G/DL (32.0-36.0) L Red Cell Distribution Width 14.1 % (11.6-14.8) Platelet Count 145 K/UL (150-450) L Mean Platelet Volume 6.4 FL (6.5-10.1) L Neutrophils (%) (Auto) 72.5 % (45.0-75.0) Lymphocytes (%) (Auto) 15.5 % (20.0-45.0) L Monocytes (%) (Auto) 8.6 % (1.0-10.0) Eosinophils (%) (Auto) 2.6 % (0.0-3.0) Basophils (%) (Auto) 0.9 % (0.0-2.0) Sodium Level 143 mEQ/L (135-145) Potassium Level 4.5 mEQ/L (3.4-4.9) Chloride Level 95 mEQ/L (98-107) L Carbon Dioxide Level 39 mEQ/L (20-30) H Anion Gap 9 (5-15) Blood Urea Nitrogen 54 mg/dL (7-23) H Creatinine 3.1 mg/dL (0.5-0.9) H Estimat Glomerular Filtration Rate mL/min (>60) Glucose Level 114 mg/dL (74-106) H Uric Acid 8.9 mg/dL (3.0-7.5) H Calcium Level 8.4 mg/dL (8.6-10.2) L Phosphorus Level 6.1 mg/dL (2.5-4.8) H Magnesium Level 2.1 mg/dL (1.7-2.5) Total Bilirubin 0.3 mg/dL (0.0-1.2) Aspartate Amino Transf (AST/SGOT) 10 U/L (5-40) Alanine Aminotransferase (ALT/SGPT) 5 U/L (3-33) Alkaline Phosphatase 57 U/L (35-104) C-Reactive Protein, Quantitative 2.6 mg/dL (< 0.5) H Pro-B-Type Natriuretic Peptide 9782 pg/mL (0-125) H Total Protein 7.1 g/dL (6.6-8.7) Albumin 3.4 g/dL (3.5-5.2) L Globulin 3.7 g/dL Albumin/Globulin Ratio 0.9 (1.0-2.7) L BRIANA TELLES Sep 14, 2016 13:59
[2016-09-14] MEDS ORDERED: NS 275ml ONE (15:22)
[2016-09-14 16:00] VITALS: BP 94/59
--- NOTE | 2016-09-14 16:12 | Diagnostic Imaging Report ---
Indication: DYSPNEA Technique: One view of the chest Comparison: 09/13/2016 Findings: The heart is enlarged. There is suggestion of slightly improved pulmonary parenchymal disease. Left hemidiaphragm remains partially obscured, small effusion likely but probably decreased. Impression: Slight improvement but persistence of pulmonary parenchymal edema versus infiltrates, over one day Persistent though slightly decreased left-sided pleural effusion
--- NOTE | 2016-09-14 17:00 | General Progress Note ---
Assessment/Plan Assessment/Plan Assessment - UGIB - resolved - Anemia-Last EGD/Colon 05/2014 (duodenal AVM- cauterized, mild diverticulosis) - Chronic hypercapnic resp failure - Renal failure - Morbid obesity - CHF - atrial fibrillation Recommendations - UGI noted - not safe for endoscopy - Rx empirically with H2B - Monitor H&H - Transfuse PRN - Elevate HOB - PO as tolerated Subjective Allergies: Coded Allergies: AMOXICILLIN (Verified Allergy, Mild, RASH, 12/25/09) MORPHINE (Unverified Allergy, Unknown, 09/06/16) PENICILLINS (Unverified Allergy, Unknown, 04/06/16) Subjective Out of ICU sitting up in chair eating well when off of BIPAP no vomiting Objective Last 24 Hour Vital Signs Date Time Temp Pulse Resp B/P Pulse Ox O2 Delivery O2 Flow Rate FiO2 09/14/16 16:55 82 20 93 Facial 8.0 09/14/16 16:00 85 09/14/16 15:18 82 22 93 Facial 8.0 09/14/16 12:00 95 09/14/16 12:00 3.0 09/14/16 12:00 89 09/14/16 12:00 97.0 89 16 117/69 97 Nasal Cannula 3.0 09/14/16 08:00 97.2 92 20 110/61 99 Nasal Cannula 3.0 09/14/16 08:00 79 09/14/16 08:00 90 09/14/16 08:00 3.0 09/14/16 07:27 Venturi Mask 12.0 50 09/14/16 07:26 96 Venturi Mask 12.0 50 09/14/16 05:26 77 22 95 Facial 50 09/14/16 04:30 97.5 82 23 100/62 99 Bi-pap 50 09/14/16 04:00 82 09/14/16 04:00 50 09/14/16 03:15 76 20 96 Facial 50 09/14/16 01:17 86 22 95 Full Face 50 09/14/16 00:00 35 09/14/16 00:00 88 09/13/16 23:46 97.6 86 23 101/69 99 Bi-pap 35.0 09/13/16 23:11 80 23 100 Full Face 50 09/13/16 21:25 77 24 100 Full Face 50 09/13/16 20:00 97.5 86 18 117/65 98 Bi-pap 35.0 09/13/16 20:00 84 09/13/16 20:00 35 09/13/16 19:59 94 Bi-pap 35 09/13/16 19:59 Bi-pap 50 09/13/16 19:57 82 23 100 Full Face 50 09/13/16 18:45 114 09/13/16 18:00 86 22 103/66 98 Bi-pap 35.0 09/13/16 17:00 84 20 107/60 98 Bi-pap 35.0 09/13/16 17:00 84 24 107/60 97 Nasal Cannula 3.0 09/13/16 17:00 81 18 100 Full Face 50 Intake and Output 09/13/16 09/14/16 19:00 07:00 Intake Total 635 ml 91.66 ml Output Total 190 ml 235 ml Balance 445 ml -143.34 ml IV Total 415 ml 91.66 ml Other 220 ml Output Urine Total 190 ml 235 ml # Bowel Movements 2 Laboratory Tests 09/14/16 03:45: White Blood Count 5.0, Red Blood Count 3.18L, Hemoglobin 9.3L, Hematocrit 30.5L , Mean Corpuscular Volume 96, Mean Corpuscular Hemoglobin 29.3, Mean Corpuscular Hemoglobin Concent 30.6L, Red Cell Distribution Width 14.1, Platelet Count 145L, Mean Platelet Volume 6.4L, Neutrophils (%) (Auto) 72.5, Lymphocytes (%) (Auto) 15.5L, Monocytes (%) (Auto) 8.6, Eosinophils (%) (Auto) 2.6, Basophils (%) (Auto) 0.9, Sodium Level 143, Potassium Level 4.5, Chloride Level 95L, Carbon Dioxide Level 39H, Anion Gap 9, Blood Urea Nitrogen 54H, Creatinine 3.1H, Estimat Glomerular Filtration Rate , Glucose Level 114H, Uric Acid 8.9H, Calcium Level 8.4L, Phosphorus Level 6.1H, Magnesium Level 2.1, Total Bilirubin 0.3, Aspartate Amino Transf (AST/SGOT) 10, Alanine Aminotransferase (ALT/SGPT) 5, Alkaline Phosphatase 57, C-Reactive Protein, Quantitative 2.6H, Pro-B-Type Natriuretic Peptide 9782H, Total Protein 7.1, Albumin 3.4L, Globulin 3.7, Albumin/Globulin Ratio 0.9L Height (Feet): 5 Height (Inches): 4.00 Weight (Pounds): 329 Objective Obese WW NCAT supple Coarse BS, melissa RR Abd soft NT ND, obese (+) edema Neuro - responsive BRETT DALE Sep 14, 2016 17:00
[2016-09-14 20:00] VITALS: BP 104/65
--- NOTE | 2016-09-14 20:24 | General Progress Note ---
Assessment/Plan Status: stable Assessment/Plan 1. Acute respiratory failure requiring BiPAP with respiratory acidosis --on continuous Bipap hs and prn -patient now out of ICU on Nasal canula - Dr Anju llanos, on lasix drip 2. Acute gastrointestinal bleed with acute anemia requiring blood transfusion. -s/p BT 4 units, H/H stable, no more episodes of hematemesis -diet was advanced by GI currently on soft diet tolerating diet - follow Dr Rodriguez recommendations, UGI is limited study no ulcers seen, has esophageal dysmotility -continue PPI -not safe for EGD at this time 3. Acute kidney injury on chronic kidney disease. now with oliguria -stable, renal US noted - follow Dr Zamora recommendations, lasix drip to be ordered by Dr. Rene , monitor urine output 4. Hyperkalemia., resolved. 5. Acute diastolic ongestive heart failure. - lasix drip to be ordered - Dr Peralta cardio 6. Atrial fibrillation. - off eliquis for now, at risk for cva 7. Pulmonary hypertension. - on sildanefil 8. Morbid obesity: diet and excercise when medically stable 9. Chronic obstructive pulmonary disease. continue nebulizer 10. presumed MINA bipap, may benefit from Trillogy vent as outpatient as has not had a formal sleep study 11. UTI Ecoli ESBL with sepsis: antibioitics per ID, Ertepenam for 1 more day 12. morbid obesity: diet and weight loss encouraged 13. DJD: will need pt/ot, home health once dc, will order large wheel chair, hospital bed for home use 14. hypotension: improved PT/OT when clinically more stable improving condition dc planning with HH and home oxygen, Trilogy VENT Subjective Date patient seen: Sep 14, 2016 Allergies: Coded Allergies: AMOXICILLIN (Verified Allergy, Mild, RASH, 12/25/09) MORPHINE (Unverified Allergy, Unknown, 09/06/16) PENICILLINS (Unverified Allergy, Unknown, 04/06/16) Subjective The patient was seen and examined at bedside and all new and available data was reviewed in the patients chart. I agree with the above findings, impression and plan. (Patient seen earlier today. Signature stamp does not reflect patient encounter time.). -Manny Nolan MD Objective Last 24 Hour Vital Signs Date Time Temp Pulse Resp B/P Pulse Ox O2 Delivery O2 Flow Rate FiO2 09/14/16 19:36 81 22 96 Facial 8.0 09/14/16 19:35 Bi-pap 35 09/14/16 19:33 97 Bi-pap 35 09/14/16 16:55 82 20 93 Facial 8.0 09/14/16 16:00 97.9 91 24 94/59 90 Bi-pap 8.0 09/14/16 16:00 50 09/14/16 16:00 85 09/14/16 15:18 82 22 93 Facial 8.0 09/14/16 12:00 95 09/14/16 12:00 3.0 09/14/16 12:00 89 09/14/16 12:00 97.0 89 16 117/69 97 Nasal Cannula 3.0 09/14/16 08:00 97.2 92 20 110/61 99 Nasal Cannula 3.0 09/14/16 08:00 79 09/14/16 08:00 90 09/14/16 08:00 3.0 09/14/16 07:27 Venturi Mask 12.0 50 09/14/16 07:26 96 Venturi Mask 12.0 50 09/14/16 05:26 77 22 95 Facial 50 09/14/16 04:30 97.5 82 23 100/62 99 Bi-pap 50 09/14/16 04:00 82 09/14/16 04:00 50 09/14/16 03:15 76 20 96 Facial 50 09/14/16 01:17 86 22 95 Full Face 50 09/14/16 00:00 35 09/14/16 00:00 88 09/13/16 23:46 97.6 86 23 101/69 99 Bi-pap 35.0 09/13/16 23:11 80 23 100 Full Face 50 09/13/16 21:25 77 24 100 Full Face 50 Intake and Output 09/13/16 09/14/16 19:00 07:00 Intake Total 635 ml 91.66 ml Output Total 190 ml 235 ml Balance 445 ml -143.34 ml IV Total 415 ml 91.66 ml Other 220 ml Output Urine Total 190 ml 235 ml # Bowel Movements 2 Laboratory Tests 09/14/16 03:45: White Blood Count 5.0, Red Blood Count 3.18L, Hemoglobin 9.3L, Hematocrit 30.5L , Mean Corpuscular Volume 96, Mean Corpuscular Hemoglobin 29.3, Mean Corpuscular Hemoglobin Concent 30.6L, Red Cell Distribution Width 14.1, Platelet Count 145L, Mean Platelet Volume 6.4L, Neutrophils (%) (Auto) 72.5, Lymphocytes (%) (Auto) 15.5L, Monocytes (%) (Auto) 8.6, Eosinophils (%) (Auto) 2.6, Basophils (%) (Auto) 0.9, Sodium Level 143, Potassium Level 4.5, Chloride Level 95L, Carbon Dioxide Level 39H, Anion Gap 9, Blood Urea Nitrogen 54H, Creatinine 3.1H, Estimat Glomerular Filtration Rate , Glucose Level 114H, Uric Acid 8.9H, Calcium Level 8.4L, Phosphorus Level 6.1H, Magnesium Level 2.1, Total Bilirubin 0.3, Aspartate Amino Transf (AST/SGOT) 10, Alanine Aminotransferase (ALT/SGPT) 5, Alkaline Phosphatase 57, C-Reactive Protein, Quantitative 2.6H, Pro-B-Type Natriuretic Peptide 9782H, Total Protein 7.1, Albumin 3.4L, Globulin 3.7, Albumin/Globulin Ratio 0.9L Height (Feet): 5 Height (Inches): 4.00 Weight (Pounds): 329 General Appearance: no apparent distress, alert Neck: non-tender, supple Cardiovascular: normal rate, regular rhythm, no gallop/murmur, no JVD Respiratory/Chest: chest wall non-tender, normal breath sounds, no respiratory distress Abdomen: non tender, soft, no mass Extremities: non-tender Edema: no edema noted Arm (L), no edema noted Arm (R), 2+ Leg (L), 2+ Leg (R), 2+ Pedal (L), 2+ Pedal (R), 2+ Generalized Edema: moderate edema 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
[2016-09-15] VITALS: BP 114/68
--- NOTE | 2016-09-15 | Progress Note ---
SUBJECTIVE: The patient is out of ICU. The patient is able to sit up in a chair and is feeding self. No behavior issues. Still uses BiPAP. MENTAL STATUS EXAMINATION: Alert and oriented times self, place, and situation she is in. Mood is anxious. Affect is constricted, congruent with mood. Thought process, there is a paucity of thought content. Thought content, no suicidal or homicidal ideation. ASSESSMENT: Stable encephalopathy. PLAN: 1. The patient will be continued on current medication. 2. Provide the patient with supportive therapy and reality orientation. Eda Pena M.D. DR: CYNTHIA JOB#: [id number] CC:
[2016-09-15 04:00] VITALS: BP 97/65
[2016-09-15 05:45] LABS: BASOPHILS % (AUTO) 0.8 % (0.0-2.0); EOSINOPHILS % (AUTO) 3.3 % (0.0-3.0); LYMPHOCYTES % (AUTO) 14.9 % (20.0-45.0); MEAN CORPUSCULAR HEMOGLOBIN 28.9 PG (27.0-31.0); MEAN CORPUSCULAR HGB CONC 30.3 G/DL (32.0-36.0); MEAN CORPUSCULAR VOLUME 95 FL (80-99); MEAN PLATELET VOLUME 6.3 FL (6.5-10.1); MONOCYTES % (AUTO) 8.7 % (1.0-10.0); NEUTROPHILS % (AUTO) 72.3 % (45.0-75.0); PLATELET COUNT 135 K/UL (150-450); RED BLOOD COUNT 3.01 M/UL (4.20-5.40); RED CELL DISTRIBUTION WIDTH 14.2 % (11.6-14.8); WHITE BLOOD COUNT 4.8 K/UL (4.8-10.8)
[2016-09-15 06:32] LABS: ALANINE AMINOTRANSFERASE 5 U/L (3-33); ALBUMIN/GLOBULIN RATIO 0.8 (1.0-2.7); ANION GAP 12 (5-15); ASPARTATE AMINO TRANSFERASE 11 U/L (5-40); CALCIUM 8.4 mg/dL (8.6-10.2); CARBON DIOXIDE 37 mEQ/L (20-30); CHLORIDE 95 mEQ/L (98-107); CREATININE 3.2 mg/dL (0.5-0.9); HEMOLYSIS 4; POTASSIUM 4.4 mEQ/L (3.4-4.9); SODIUM 144 mEQ/L (135-145); TOTAL PROTEIN 6.9 g/dL (6.6-8.7)
[2016-09-15 07:06] LABS: MAGNESIUM 2.1 mg/dL (1.7-2.5); PHOSPHORUS 6.8 mg/dL (2.5-4.8); URIC ACID 8.7 mg/dL (3.0-7.5)
[2016-09-15 08:00] VITALS: BP 131/67
[2016-09-15] MEDS: Nystatin Powder 100,000 units/gm 15gm TOPIC SCH ×3 (08:13→17:42)
[2016-09-15] MEDS: Ertapenem 0.5 GM in NS 55 ML IV SCH (09:15)
[2016-09-15] MEDS: Heparin 5000 units/ml inj SUBQ SCH ×2 (09:16→20:35)
--- NOTE | 2016-09-15 10:33 | General Progress Note ---
Assessment/Plan Assessment/Plan Assessment - UGIB - resolved - Anemia-Last EGD/Colon 05/2014 (duodenal AVM- cauterized, mild diverticulosis) - Chronic hypercapnic resp failure - Renal failure - Morbid obesity - CHF - atrial fibrillation Recommendations - OK to retry anticoagulation from GI standpoint - Rx empirically with H2B - Monitor labs - Elevate HOB - PO as tolerated Subjective Allergies: Coded Allergies: AMOXICILLIN (Verified Allergy, Mild, RASH, 12/25/09) MORPHINE (Unverified Allergy, Unknown, 09/06/16) PENICILLINS (Unverified Allergy, Unknown, 04/06/16) Subjective no new c/o sitting up in chair eating well when off of BIPAP no vomiting d/w PMD Objective Last 24 Hour Vital Signs Date Time Temp Pulse Resp B/P Pulse Ox O2 Delivery O2 Flow Rate FiO2 09/15/16 09:06 73 18 95 Facial 6.0 09/15/16 08:07 101 09/15/16 08:00 50 09/15/16 08:00 98.8 85 20 131/67 92 Nasal Cannula 6.0 09/15/16 06:49 75 18 95 Facial 8.0 09/15/16 06:49 95 Bi-pap 8.0 09/15/16 06:49 Bi-pap 8.0 09/15/16 05:20 81 20 97 Facial 8.0 09/15/16 04:13 82 15 98 Facial 8.0 09/15/16 04:00 50 09/15/16 04:00 98.0 81 20 97/65 96 Bi-pap 50 09/15/16 04:00 95 09/15/16 01:39 77 22 95 Facial 8.0 09/15/16 00:00 95.9 76 18 114/68 99 Bi-pap 50 09/15/16 00:00 85 09/15/16 00:00 50 09/14/16 22:53 87 19 94 Facial 8.0 09/14/16 20:00 97.9 84 20 104/65 95 Nasal Cannula 6.0 09/14/16 20:00 50 09/14/16 19:36 81 22 96 Facial 8.0 09/14/16 19:35 Bi-pap 35 09/14/16 19:33 97 Bi-pap 35 09/14/16 19:19 85 09/14/16 16:55 82 20 93 Facial 8.0 09/14/16 16:00 97.9 91 24 94/59 90 Bi-pap 8.0 09/14/16 16:00 50 09/14/16 16:00 85 09/14/16 15:18 82 22 93 Facial 8.0 09/14/16 12:00 95 09/14/16 12:00 3.0 09/14/16 12:00 89 09/14/16 12:00 97.0 89 16 117/69 97 Nasal Cannula 3.0 Intake and Output 09/14/16 09/15/16 19:00 07:00 Intake Total 1.467 ml 490.166 ml Output Total 150 ml 400 ml Balance -148.533 ml 90.166 ml Intake Oral 360 ml IV Total 1.467 ml 130.166 ml Output Urine Total 150 ml 400 ml # Bowel Movements 3 1 Laboratory Tests 09/15/16 04:00: White Blood Count 4.8, Red Blood Count 3.01L, Hemoglobin 8.7L, Hematocrit 28.8L , Mean Corpuscular Volume 95, Mean Corpuscular Hemoglobin 28.9, Mean Corpuscular Hemoglobin Concent 30.3L, Red Cell Distribution Width 14.2, Platelet Count 135L, Mean Platelet Volume 6.3L, Neutrophils (%) (Auto) 72.3, Lymphocytes (%) (Auto) 14.9L, Monocytes (%) (Auto) 8.7, Eosinophils (%) (Auto) 3.3H, Basophils (%) (Auto) 0.8, Sodium Level 144, Potassium Level 4.4, Chloride Level 95L, Carbon Dioxide Level 37H, Anion Gap 12, Blood Urea Nitrogen 58H, Creatinine 3.2H, Estimat Glomerular Filtration Rate , Glucose Level 111H, Uric Acid 8.7H, Calcium Level 8.4L, Phosphorus Level 6.8H, Magnesium Level 2.1, Total Bilirubin 0.3, Aspartate Amino Transf (AST/SGOT) 11, Alanine Aminotransferase (ALT/SGPT) 5, Alkaline Phosphatase 58, Pro-B-Type Natriuretic Peptide 51879R, Total Protein 6.9, Albumin 3.2L, Globulin 3.7, Albumin/Globulin Ratio 0.8L Height (Feet): 5 Height (Inches): 4.00 Weight (Pounds): 332 Objective Obese WW NCAT supple Coarse BS, ronmercedes RR Abd soft NT ND, obese (+) edema Neuro - responsive BRETT DALE Sep 15, 2016 10:33
--- NOTE | 2016-09-15 10:50 | General Progress Note ---
Assessment/Plan Status: unchanged Assessment/Plan CKD- and acute renal failure Acute respiratory failure High K Obese COPD , rising Co2 CHF, Diastolic MINA UTI Anemia GI Bleed, GI bleeding At Fib Pulm HTN Low B12 Plan; BIPAP- pulm support On lasix drip add Renvela Stop Sildenifil Albumin bollous Optimize cardiac status- Monitor renal parameters and lytes- Avoid nephrotoxics B12 SQ- PO Folate ? lower level care? Subjective ROS Limited/Unobtainable: No Allergies: Coded Allergies: AMOXICILLIN (Verified Allergy, Mild, RASH, 12/25/09) MORPHINE (Unverified Allergy, Unknown, 09/06/16) PENICILLINS (Unverified Allergy, Unknown, 04/06/16) Objective Last 24 Hour Vital Signs Date Time Temp Pulse Resp B/P Pulse Ox O2 Delivery O2 Flow Rate FiO2 09/15/16 09:06 73 18 95 Facial 6.0 09/15/16 08:07 101 09/15/16 08:00 50 09/15/16 08:00 98.8 85 20 131/67 92 Nasal Cannula 6.0 09/15/16 06:49 75 18 95 Facial 8.0 09/15/16 06:49 95 Bi-pap 8.0 09/15/16 06:49 Bi-pap 8.0 09/15/16 05:20 81 20 97 Facial 8.0 09/15/16 04:13 82 15 98 Facial 8.0 09/15/16 04:00 50 09/15/16 04:00 98.0 81 20 97/65 96 Bi-pap 50 09/15/16 04:00 95 09/15/16 01:39 77 22 95 Facial 8.0 09/15/16 00:00 95.9 76 18 114/68 99 Bi-pap 50 09/15/16 00:00 85 09/15/16 00:00 50 09/14/16 22:53 87 19 94 Facial 8.0 09/14/16 20:00 97.9 84 20 104/65 95 Nasal Cannula 6.0 09/14/16 20:00 50 09/14/16 19:36 81 22 96 Facial 8.0 09/14/16 19:35 Bi-pap 35 09/14/16 19:33 97 Bi-pap 35 09/14/16 19:19 85 09/14/16 16:55 82 20 93 Facial 8.0 09/14/16 16:00 97.9 91 24 94/59 90 Bi-pap 8.0 09/14/16 16:00 50 09/14/16 16:00 85 09/14/16 15:18 82 22 93 Facial 8.0 09/14/16 12:00 95 09/14/16 12:00 3.0 09/14/16 12:00 89 09/14/16 12:00 97.0 89 16 117/69 97 Nasal Cannula 3.0 Intake and Output 09/14/16 09/15/16 19:00 07:00 Intake Total 1.467 ml 490.166 ml Output Total 150 ml 400 ml Balance -148.533 ml 90.166 ml Intake Oral 360 ml IV Total 1.467 ml 130.166 ml Output Urine Total 150 ml 400 ml # Bowel Movements 3 1 Laboratory Tests 09/15/16 04:00: White Blood Count 4.8, Red Blood Count 3.01L, Hemoglobin 8.7L, Hematocrit 28.8L , Mean Corpuscular Volume 95, Mean Corpuscular Hemoglobin 28.9, Mean Corpuscular Hemoglobin Concent 30.3L, Red Cell Distribution Width 14.2, Platelet Count 135L, Mean Platelet Volume 6.3L, Neutrophils (%) (Auto) 72.3, Lymphocytes (%) (Auto) 14.9L, Monocytes (%) (Auto) 8.7, Eosinophils (%) (Auto) 3.3H, Basophils (%) (Auto) 0.8, Sodium Level 144, Potassium Level 4.4, Chloride Level 95L, Carbon Dioxide Level 37H, Anion Gap 12, Blood Urea Nitrogen 58H, Creatinine 3.2H, Estimat Glomerular Filtration Rate , Glucose Level 111H, Uric Acid 8.7H, Calcium Level 8.4L, Phosphorus Level 6.8H, Magnesium Level 2.1, Total Bilirubin 0.3, Aspartate Amino Transf (AST/SGOT) 11, Alanine Aminotransferase (ALT/SGPT) 5, Alkaline Phosphatase 58, Pro-B-Type Natriuretic Peptide 84930C, Total Protein 6.9, Albumin 3.2L, Globulin 3.7, Albumin/Globulin Ratio 0.8L Height (Feet): 5 Height (Inches): 4.00 Weight (Pounds): 332 General Appearance: no apparent distress Cardiovascular: tachycardia Respiratory/Chest: decreased breath sounds Abdomen: other - obese Objective no change COURTNEY LOPEZ Sep 15, 2016 10:50
--- NOTE | 2016-09-15 11:00 | Pulmonology Progress Note ---
Assessment/Plan Problems: (1) Acute respiratory failure (2) CKD (chronic kidney disease) (3) Hyperkalemia (4) COPD (chronic obstructive pulmonary disease) (5) Anemia (6) MINA (obstructive sleep apnea) Assessment/Plan h/h stable on bipap again dc lasix drip all meds and notes reviewed pt needs continuous BIPA, I suggested BIPAP to the patient and she agreed will ask surgeon to see her. d/w Dr. Ortiz who agreed with trach as well. Subjective ROS Limited/Unobtainable: No Constitutional: Reports: no symptoms Allergies: Coded Allergies: AMOXICILLIN (Verified Allergy, Mild, RASH, 12/25/09) MORPHINE (Unverified Allergy, Unknown, 09/06/16) PENICILLINS (Unverified Allergy, Unknown, 04/06/16) Objective Last 24 Hour Vital Signs Date Time Temp Pulse Resp B/P Pulse Ox O2 Delivery O2 Flow Rate FiO2 09/15/16 09:06 73 18 95 Facial 6.0 09/15/16 08:07 101 09/15/16 08:00 50 09/15/16 08:00 98.8 85 20 131/67 92 Nasal Cannula 6.0 09/15/16 06:49 75 18 95 Facial 8.0 09/15/16 06:49 95 Bi-pap 8.0 09/15/16 06:49 Bi-pap 8.0 09/15/16 05:20 81 20 97 Facial 8.0 09/15/16 04:13 82 15 98 Facial 8.0 09/15/16 04:00 50 09/15/16 04:00 98.0 81 20 97/65 96 Bi-pap 50 09/15/16 04:00 95 09/15/16 01:39 77 22 95 Facial 8.0 09/15/16 00:00 95.9 76 18 114/68 99 Bi-pap 50 09/15/16 00:00 85 09/15/16 00:00 50 09/14/16 22:53 87 19 94 Facial 8.0 09/14/16 20:00 97.9 84 20 104/65 95 Nasal Cannula 6.0 09/14/16 20:00 50 09/14/16 19:36 81 22 96 Facial 8.0 09/14/16 19:35 Bi-pap 35 09/14/16 19:33 97 Bi-pap 35 09/14/16 19:19 85 09/14/16 16:55 82 20 93 Facial 8.0 09/14/16 16:00 97.9 91 24 94/59 90 Bi-pap 8.0 09/14/16 16:00 50 09/14/16 16:00 85 09/14/16 15:18 82 22 93 Facial 8.0 09/14/16 12:00 95 09/14/16 12:00 3.0 09/14/16 12:00 89 09/14/16 12:00 97.0 89 16 117/69 97 Nasal Cannula 3.0 Intake and Output 09/14/16 09/15/16 19:00 07:00 Intake Total 1.467 ml 490.166 ml Output Total 150 ml 400 ml Balance -148.533 ml 90.166 ml Intake Oral 360 ml IV Total 1.467 ml 130.166 ml Output Urine Total 150 ml 400 ml # Bowel Movements 3 1 General Appearance: WD/WN HEENT: normocephalic, atraumatic Respiratory/Chest: chest wall non-tender, lungs clear Cardiovascular: normal peripheral pulses, normal rate Abdomen: normal bowel sounds, soft, non tender Genitourinary: normal external genitalia Extremities: no cyanosis Skin: no lesions 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 normal Laboratory Tests 09/15/16 04:00: White Blood Count 4.8, Red Blood Count 3.01L, Hemoglobin 8.7L, Hematocrit 28.8L , Mean Corpuscular Volume 95, Mean Corpuscular Hemoglobin 28.9, Mean Corpuscular Hemoglobin Concent 30.3L, Red Cell Distribution Width 14.2, Platelet Count 135L, Mean Platelet Volume 6.3L, Neutrophils (%) (Auto) 72.3, Lymphocytes (%) (Auto) 14.9L, Monocytes (%) (Auto) 8.7, Eosinophils (%) (Auto) 3.3H, Basophils (%) (Auto) 0.8, Sodium Level 144, Potassium Level 4.4, Chloride Level 95L, Carbon Dioxide Level 37H, Anion Gap 12, Blood Urea Nitrogen 58H, Creatinine 3.2H, Estimat Glomerular Filtration Rate , Glucose Level 111H, Uric Acid 8.7H, Calcium Level 8.4L, Phosphorus Level 6.8H, Magnesium Level 2.1, Total Bilirubin 0.3, Aspartate Amino Transf (AST/SGOT) 11, Alanine Aminotransferase (ALT/SGPT) 5, Alkaline Phosphatase 58, Pro-B-Type Natriuretic Peptide 81757N, Total Protein 6.9, Albumin 3.2L, Globulin 3.7, Albumin/Globulin Ratio 0.8L Current Medications Medications (Trade) Dose Ordered Sig/Kalyn Route PRN Reason Start Time Stop Time Status Last Admin Dose Admin Acetaminophen (Tylenol) 650 mg Q4H PRN ORAL T>100.5 09/13/16 18:30 10/13/16 18:29 09/14/16 10:21 Albuterol/ Ipratropium (DuoNeb 0.5-3(2.5)mg/3ml) 3 ml Q4H PRN HHN Shortness of Breath 09/13/16 18:30 09/18/16 18:29 Dextrose (Dextrose 50%) STAT PRN IV Hypoglycemia 09/13/16 18:15 10/13/16 18:14 Epoetin Santos (Procrit (for ESRD on dialysis)) 7,000 units TUE-TUE-TUE SUBQ 09/15/16 21:00 10/15/16 20:59 Ertapenem/Sodium Chloride (INVanz/Sodium Chloride) 55 ml @ 110 mls/hr Q24H IV 09/14/16 09:00 09/19/16 08:59 09/15/16 09:15 Folic Acid (Folate) 2 mg DAILY ORAL 09/14/16 09:00 10/14/16 08:59 09/15/16 08:10 Furosemide 100 mg/ Dextrose 110 ml @ 11 mls/hr Q10H IV 09/13/16 23:00 10/13/16 22:59 09/15/16 05:02 Heparin Sodium (Porcine) (Heparin 5000 units/ml) 5,000 units EVERY 12 HOURS SUBQ 09/13/16 21:00 10/13/16 20:59 09/15/16 09:16 Letrozole (Femara) 2.5 mg DAILY ORAL 09/14/16 09:00 09/19/16 08:59 09/15/16 08:09 Nystatin (Nystop Powder) 1 applic THREE TIMES A DAY TOPIC 09/13/16 18:00 10/13/16 17:59 09/15/16 08:13 Ondansetron HCl (Zofran) 4 mg Q6H PRN IVP Nausea & Vomiting 09/13/16 18:30 10/13/16 18:29 Pantoprazole (Protonix) 40 mg EVERY 12 HOURS ORAL 09/14/16 21:00 10/14/16 20:59 09/15/16 08:10 Polyethylene Glycol (Miralax) 17 gm DAILY ORAL 09/14/16 09:00 10/14/16 08:59 09/14/16 09:16 Polyethylene Glycol (Miralax) 17 gm DAILYPRN PRN ORAL Constipation 09/13/16 18:30 10/13/16 18:29 09/15/16 01:49 Pravastatin Sodium (Pravachol) 20 mg BEDTIME ORAL 09/13/16 21:00 10/13/16 20:59 09/14/16 21:00 Sevelamer Carbonate (Renvela) 800 mg THREE TIMES A DAY ORAL 09/14/16 13:00 10/14/16 12:59 09/15/16 08:09 Temazepam (Restoril) 15 mg HSPRN PRN ORAL Insomnia 09/13/16 21:00 09/20/16 20:59 ARASH MIRANDA Sep 15, 2016 11:00
--- NOTE | 2016-09-15 11:09 | General Progress Note ---
Assessment/Plan Status: progressing Assessment/Plan 1. Acute respiratory failure requiring BiPAP with respiratory acidosis --on continuous Bipap hs and prn -patient now out of ICU on Nasal canula - Dr Anju llanos, on lasix drip, patient to consider trach , surgery to see patient to discuss pros and cons 2. Acute gastrointestinal bleed with acute anemia requiring blood transfusion. -s/p BT 4 units, H/H stable, no more episodes of hematemesis -diet was advanced by GI currently on soft diet tolerating diet - follow Dr Rodriguez recommendations, UGI is limited study no ulcers seen, has esophageal dysmotility -continue PPI -not safe for EGD at this time 3. Acute kidney injury on chronic kidney disease. now with oliguria -stable, renal US noted - follow Dr Zamora recommendations, lasix drip to be ordered by Dr. Rene , monitor urine output 4. Hyperkalemia., resolved. 5. Acute diastolic ongestive heart failure. - lasix drip to be ordered - Dr Peralta cardio 6. Atrial fibrillation. - off eliquis for now, at risk for cva 7. Pulmonary hypertension. - on sildanefil 8. Morbid obesity: diet and excercise when medically stable 9. Chronic obstructive pulmonary disease. continue nebulizer 10. presumed MINA bipap, may benefit from Trillogy vent as outpatient as has not had a formal sleep study 11. UTI Ecoli ESBL with sepsis: antibioitics per ID,finished course of Erthapenam 12. morbid obesity: diet and weight loss encouraged 13. DJD: will need pt/ot, home health once dc, will order large wheel chair, hospital bed for home use 14. hypotension: improved PT/OT when clinically more stable improving condition will hold dc planning until as pulmonary is considering trach Subjective Date patient seen: Sep 15, 2016 Allergies: Coded Allergies: AMOXICILLIN (Verified Allergy, Mild, RASH, 12/25/09) MORPHINE (Unverified Allergy, Unknown, 09/06/16) PENICILLINS (Unverified Allergy, Unknown, 04/06/16) Subjective The patient was seen and examined at bedside and all new and available data was reviewed in the patients chart. I agree with the above findings, impression and plan. (Patient seen earlier today. Signature stamp does not reflect patient encounter time.). -Manny Nolan MD Objective Last 24 Hour Vital Signs Date Time Temp Pulse Resp B/P Pulse Ox O2 Delivery O2 Flow Rate FiO2 09/15/16 09:06 73 18 95 Facial 6.0 09/15/16 08:07 101 09/15/16 08:00 50 09/15/16 08:00 98.8 85 20 131/67 92 Nasal Cannula 6.0 09/15/16 06:49 75 18 95 Facial 8.0 09/15/16 06:49 95 Bi-pap 8.0 09/15/16 06:49 Bi-pap 8.0 09/15/16 05:20 81 20 97 Facial 8.0 09/15/16 04:13 82 15 98 Facial 8.0 09/15/16 04:00 50 09/15/16 04:00 98.0 81 20 97/65 96 Bi-pap 50 09/15/16 04:00 95 09/15/16 01:39 77 22 95 Facial 8.0 09/15/16 00:00 95.9 76 18 114/68 99 Bi-pap 50 09/15/16 00:00 85 09/15/16 00:00 50 09/14/16 22:53 87 19 94 Facial 8.0 09/14/16 20:00 97.9 84 20 104/65 95 Nasal Cannula 6.0 09/14/16 20:00 50 09/14/16 19:36 81 22 96 Facial 8.0 09/14/16 19:35 Bi-pap 35 09/14/16 19:33 97 Bi-pap 35 09/14/16 19:19 85 09/14/16 16:55 82 20 93 Facial 8.0 09/14/16 16:00 97.9 91 24 94/59 90 Bi-pap 8.0 09/14/16 16:00 50 09/14/16 16:00 85 09/14/16 15:18 82 22 93 Facial 8.0 09/14/16 12:00 95 09/14/16 12:00 3.0 09/14/16 12:00 89 09/14/16 12:00 97.0 89 16 117/69 97 Nasal Cannula 3.0 Intake and Output 09/14/16 09/15/16 19:00 07:00 Intake Total 1.467 ml 490.166 ml Output Total 150 ml 400 ml Balance -148.533 ml 90.166 ml Intake Oral 360 ml IV Total 1.467 ml 130.166 ml Output Urine Total 150 ml 400 ml # Bowel Movements 3 1 Laboratory Tests 09/15/16 04:00: White Blood Count 4.8, Red Blood Count 3.01L, Hemoglobin 8.7L, Hematocrit 28.8L , Mean Corpuscular Volume 95, Mean Corpuscular Hemoglobin 28.9, Mean Corpuscular Hemoglobin Concent 30.3L, Red Cell Distribution Width 14.2, Platelet Count 135L, Mean Platelet Volume 6.3L, Neutrophils (%) (Auto) 72.3, Lymphocytes (%) (Auto) 14.9L, Monocytes (%) (Auto) 8.7, Eosinophils (%) (Auto) 3.3H, Basophils (%) (Auto) 0.8, Sodium Level 144, Potassium Level 4.4, Chloride Level 95L, Carbon Dioxide Level 37H, Anion Gap 12, Blood Urea Nitrogen 58H, Creatinine 3.2H, Estimat Glomerular Filtration Rate , Glucose Level 111H, Uric Acid 8.7H, Calcium Level 8.4L, Phosphorus Level 6.8H, Magnesium Level 2.1, Total Bilirubin 0.3, Aspartate Amino Transf (AST/SGOT) 11, Alanine Aminotransferase (ALT/SGPT) 5, Alkaline Phosphatase 58, Pro-B-Type Natriuretic Peptide 73196F, Total Protein 6.9, Albumin 3.2L, Globulin 3.7, Albumin/Globulin Ratio 0.8L Height (Feet): 5 Height (Inches): 4.00 Weight (Pounds): 332 General Appearance: no apparent distress, alert EENT: PERRL/EOMI, pharynx normal Neck: non-tender, supple Cardiovascular: normal peripheral pulses Respiratory/Chest: decreased breath sounds Abdomen: non tender, soft, no mass Extremities: swelling Edema: no edema noted Arm (L), no edema noted Arm (R), 2+ Leg (L), 2+ Leg (R), 2+ Pedal (L), 2+ Pedal (R), 2+ Generalized Edema: moderate edema 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
--- NOTE | 2016-09-15 11:49 | Infectious Diseases Prog Note ---
Assessment/Plan Assessment/Plan antibiotics : ertapenem A 1. e.coli esbl UTI 2. DM 3. renal failure 4. CHF 5. respiratory failure P 1. continue ertapenem for now 2. will follow up cultures Subjective Constitutional: Denies: chills, fever Respiratory: Denies: dry cough, shortness of breath Gastrointestinal/Abdominal: Denies: diarrhea, nausea, vomiting Musculoskeletal: Reports: pain Allergies: Coded Allergies: AMOXICILLIN (Verified Allergy, Mild, RASH, 12/25/09) MORPHINE (Unverified Allergy, Unknown, 09/06/16) PENICILLINS (Unverified Allergy, Unknown, 04/06/16) Objective Vital Signs Last 24 Hour Vital Signs Date Time Temp Pulse Resp B/P Pulse Ox O2 Delivery O2 Flow Rate FiO2 09/15/16 10:41 75 18 94 Facial 6.0 09/15/16 09:06 73 18 95 Facial 6.0 09/15/16 08:07 101 09/15/16 08:00 50 09/15/16 08:00 98.8 85 20 131/67 92 Nasal Cannula 6.0 09/15/16 06:49 75 18 95 Facial 8.0 09/15/16 06:49 95 Bi-pap 8.0 09/15/16 06:49 Bi-pap 8.0 09/15/16 05:20 81 20 97 Facial 8.0 09/15/16 04:13 82 15 98 Facial 8.0 09/15/16 04:00 50 09/15/16 04:00 98.0 81 20 97/65 96 Bi-pap 50 09/15/16 04:00 95 09/15/16 01:39 77 22 95 Facial 8.0 09/15/16 00:00 95.9 76 18 114/68 99 Bi-pap 50 09/15/16 00:00 85 09/15/16 00:00 50 09/14/16 22:53 87 19 94 Facial 8.0 09/14/16 20:00 97.9 84 20 104/65 95 Nasal Cannula 6.0 09/14/16 20:00 50 09/14/16 19:36 81 22 96 Facial 8.0 09/14/16 19:35 Bi-pap 35 09/14/16 19:33 97 Bi-pap 35 09/14/16 19:19 85 09/14/16 16:55 82 20 93 Facial 8.0 09/14/16 16:00 97.9 91 24 94/59 90 Bi-pap 8.0 09/14/16 16:00 50 09/14/16 16:00 85 09/14/16 15:18 82 22 93 Facial 8.0 09/14/16 12:00 95 09/14/16 12:00 3.0 09/14/16 12:00 89 09/14/16 12:00 97.0 89 16 117/69 97 Nasal Cannula 3.0 Height (Feet): 5 Height (Inches): 4.00 Weight (Pounds): 332 HEENT: other - on bipap Respiratory/Chest: lungs clear Cardiovascular: normal rate, regular rhythm, no gallop/murmur Abdomen: soft, non tender Extremities: no edema Laboratory Tests Test 09/15/16 04:00 White Blood Count 4.8 K/UL (4.8-10.8) Red Blood Count 3.01 M/UL (4.20-5.40) L Hemoglobin 8.7 G/DL (12.0-16.0) L Hematocrit 28.8 % (37.0-47.0) L Mean Corpuscular Volume 95 FL (80-99) Mean Corpuscular Hemoglobin 28.9 PG (27.0-31.0) Mean Corpuscular Hemoglobin Concent 30.3 G/DL (32.0-36.0) L Red Cell Distribution Width 14.2 % (11.6-14.8) Platelet Count 135 K/UL (150-450) L Mean Platelet Volume 6.3 FL (6.5-10.1) L Neutrophils (%) (Auto) 72.3 % (45.0-75.0) Lymphocytes (%) (Auto) 14.9 % (20.0-45.0) L Monocytes (%) (Auto) 8.7 % (1.0-10.0) Eosinophils (%) (Auto) 3.3 % (0.0-3.0) H Basophils (%) (Auto) 0.8 % (0.0-2.0) Sodium Level 144 mEQ/L (135-145) Potassium Level 4.4 mEQ/L (3.4-4.9) Chloride Level 95 mEQ/L (98-107) L Carbon Dioxide Level 37 mEQ/L (20-30) H Anion Gap 12 (5-15) Blood Urea Nitrogen 58 mg/dL (7-23) H Creatinine 3.2 mg/dL (0.5-0.9) H Estimat Glomerular Filtration Rate mL/min (>60) Glucose Level 111 mg/dL (74-106) H Uric Acid 8.7 mg/dL (3.0-7.5) H Calcium Level 8.4 mg/dL (8.6-10.2) L Phosphorus Level 6.8 mg/dL (2.5-4.8) H Magnesium Level 2.1 mg/dL (1.7-2.5) Total Bilirubin 0.3 mg/dL (0.0-1.2) Aspartate Amino Transf (AST/SGOT) 11 U/L (5-40) Alanine Aminotransferase (ALT/SGPT) 5 U/L (3-33) Alkaline Phosphatase 58 U/L (35-104) Pro-B-Type Natriuretic Peptide 04215 pg/mL (0-125) H Total Protein 6.9 g/dL (6.6-8.7) Albumin 3.2 g/dL (3.5-5.2) L Globulin 3.7 g/dL Albumin/Globulin Ratio 0.8 (1.0-2.7) L TATIANNA JONES Sep 15, 2016 11:49
[2016-09-15 12:00] VITALS: BP 110/57
--- NOTE | 2016-09-15 12:19 | Diagnostic Imaging Report ---
Indication: DYSPNEA Technique: One view of the chest Comparison: 09/14/2016 Findings: The heart is enlarged. There is equivocal slight improvement of previously demonstrated retrocardiac opacity. Left basilar pleural fluid persists. Generalized mild interstitial congestion persists Impression: Equivocal slight improvement of previously demonstrated retrocardiac infiltrate versus edema Other stable findings, as described, over one day
[2016-09-15 16:00] VITALS: BP 123/92
--- NOTE | 2016-09-15 19:56 | Cardiology Progress Note ---
Assessment/Plan Assessment/Plan 1. Coffee-ground emesis. 2. Anemia, worsened, chronic. 3. Gastrointestinal bleed. 4. Permanent atrial fibrillation, on anticoagulation with Eliquis. 5. History of pulmonary hypertension of significant degree, treated with sildenafil. 6. Systemic hypertension. 7. Chronic renal insufficiency. 8. Diabetes mellitus 9. repiratotry acdosis 10. hypotension hgb noted low stable tele noted afib bp seem ok off eliquis for now tele noted afib vr ok is off sildenafil diurtics as bp allow tach considered Subjective ROS Limited/Unobtainable: Yes Subjective on bipap sleepy Objective Last 24 Hour Vital Signs Date Time Temp Pulse Resp B/P Pulse Ox O2 Delivery O2 Flow Rate FiO2 09/15/16 19:10 Bi-pap 6.0 09/15/16 19:10 95 Bi-pap 6.0 09/15/16 19:10 89 24 95 Facial 6.0 09/15/16 16:49 72 24 94 Facial 6.0 09/15/16 16:00 90 09/15/16 16:00 35 09/15/16 16:00 97.8 86 21 123/92 96 Bi-pap 50 09/15/16 14:30 75 22 95 Facial 6.0 09/15/16 12:47 70 18 95 Facial 6.0 09/15/16 12:00 35 09/15/16 12:00 97.9 89 20 110/57 96 Bi-pap 50 09/15/16 11:53 90 09/15/16 10:41 75 18 94 Facial 6.0 09/15/16 09:06 73 18 95 Facial 6.0 09/15/16 08:07 101 09/15/16 08:00 98.8 85 20 131/67 92 Nasal Cannula 6.0 09/15/16 08:00 35 09/15/16 06:49 75 18 95 Facial 8.0 09/15/16 06:49 95 Bi-pap 8.0 09/15/16 06:49 Bi-pap 8.0 09/15/16 05:20 81 20 97 Facial 8.0 09/15/16 04:13 82 15 98 Facial 8.0 09/15/16 04:00 50 09/15/16 04:00 98.0 81 20 97/65 96 Bi-pap 50 09/15/16 04:00 95 09/15/16 01:39 77 22 95 Facial 8.0 09/15/16 00:00 95.9 76 18 114/68 99 Bi-pap 50 09/15/16 00:00 85 09/15/16 00:00 50 09/14/16 22:53 87 19 94 Facial 8.0 09/14/16 20:00 97.9 84 20 104/65 95 Nasal Cannula 6.0 09/14/16 20:00 50 Intake and Output 09/14/16 09/15/16 19:00 07:00 Intake Total 1.467 ml 490.166 ml Output Total 150 ml 400 ml Balance -148.533 ml 90.166 ml Intake Oral 360 ml IV Total 1.467 ml 130.166 ml Output Urine Total 150 ml 400 ml # Bowel Movements 3 1 Laboratory Tests Test 09/15/16 04:00 White Blood Count 4.8 K/UL (4.8-10.8) Red Blood Count 3.01 M/UL (4.20-5.40) L Hemoglobin 8.7 G/DL (12.0-16.0) L Hematocrit 28.8 % (37.0-47.0) L Mean Corpuscular Volume 95 FL (80-99) Mean Corpuscular Hemoglobin 28.9 PG (27.0-31.0) Mean Corpuscular Hemoglobin Concent 30.3 G/DL (32.0-36.0) L Red Cell Distribution Width 14.2 % (11.6-14.8) Platelet Count 135 K/UL (150-450) L Mean Platelet Volume 6.3 FL (6.5-10.1) L Neutrophils (%) (Auto) 72.3 % (45.0-75.0) Lymphocytes (%) (Auto) 14.9 % (20.0-45.0) L Monocytes (%) (Auto) 8.7 % (1.0-10.0) Eosinophils (%) (Auto) 3.3 % (0.0-3.0) H Basophils (%) (Auto) 0.8 % (0.0-2.0) Sodium Level 144 mEQ/L (135-145) Potassium Level 4.4 mEQ/L (3.4-4.9) Chloride Level 95 mEQ/L (98-107) L Carbon Dioxide Level 37 mEQ/L (20-30) H Anion Gap 12 (5-15) Blood Urea Nitrogen 58 mg/dL (7-23) H Creatinine 3.2 mg/dL (0.5-0.9) H Estimat Glomerular Filtration Rate mL/min (>60) Glucose Level 111 mg/dL (74-106) H Uric Acid 8.7 mg/dL (3.0-7.5) H Calcium Level 8.4 mg/dL (8.6-10.2) L Phosphorus Level 6.8 mg/dL (2.5-4.8) H Magnesium Level 2.1 mg/dL (1.7-2.5) Total Bilirubin 0.3 mg/dL (0.0-1.2) Aspartate Amino Transf (AST/SGOT) 11 U/L (5-40) Alanine Aminotransferase (ALT/SGPT) 5 U/L (3-33) Alkaline Phosphatase 58 U/L (35-104) Pro-B-Type Natriuretic Peptide 28304 pg/mL (0-125) H Total Protein 6.9 g/dL (6.6-8.7) Albumin 3.2 g/dL (3.5-5.2) L Globulin 3.7 g/dL Albumin/Globulin Ratio 0.8 (1.0-2.7) L BRIANA TELLES Sep 15, 2016 19:56
[2016-09-15] MEDS: Epogen (for ESRD on dialysis) SUBQ SCH (20:31)
[2016-09-15 20:32] VITALS: BP 103/54
[2016-09-16] VITALS: BP 102/68
[2016-09-16 04:00] VITALS: BP 117/69
--- NOTE | 2016-09-16 04:00 | Progress Note ---
SUBJECTIVE: The patient is doing well. She was lying in bed, on nasal cannula. No behavior issues. Still continues to be having . The patient knows her name, place, and situation she is in; however she has difficulty remembering the date. OBJECTIVE: MENTAL STATUS EXAMINATION: The patient is alert and oriented x3. Mood is neutral. Affect is constricted. Congruent with mood. Thought process is concrete. Thought content, there is no suicidal or homicidal ideation. Cognition is impaired. ASSESSMENT: 1. Encephalopathy. 2. Depression. PLAN: The patient will be continued on current medication. Provide the patient with supportive therapy and reality orientation. Eda Pena M.D. DR: Jose JOB#: [id number] CC:
[2016-09-16 04:55] LABS: BASOPHILS % (AUTO) 0.8 % (0.0-2.0); EOSINOPHILS % (AUTO) 2.7 % (0.0-3.0); MEAN CORPUSCULAR HEMOGLOBIN 29.7 PG (27.0-31.0); MEAN CORPUSCULAR HGB CONC 31.3 G/DL (32.0-36.0); MEAN CORPUSCULAR VOLUME 95 FL (80-99); MEAN PLATELET VOLUME 6.3 FL (6.5-10.1); MONOCYTES % (AUTO) 7.6 % (1.0-10.0); NEUTROPHILS % (AUTO) 70.8 % (45.0-75.0); PLATELET COUNT 139 K/UL (150-450); RED BLOOD COUNT 2.89 M/UL (4.20-5.40); RED CELL DISTRIBUTION WIDTH 14.4 % (11.6-14.8); WHITE BLOOD COUNT 4.8 K/UL (4.8-10.8)
[2016-09-16 05:14] LABS: ALANINE AMINOTRANSFERASE 5 U/L (3-33); ALBUMIN/GLOBULIN RATIO 0.8 (1.0-2.7); ANION GAP 10 (5-15); ASPARTATE AMINO TRANSFERASE 11 U/L (5-40); CALCIUM 8.3 mg/dL (8.6-10.2); CARBON DIOXIDE 37 mEQ/L (20-30); CHLORIDE 95 mEQ/L (98-107); CREATININE 3.3 mg/dL (0.5-0.9); HEMOLYSIS 17; POTASSIUM 4.6 mEQ/L (3.4-4.9); SODIUM 142 mEQ/L (135-145); TOTAL PROTEIN 6.6 g/dL (6.6-8.7)
[2016-09-16 08:00] VITALS: BP 108/60
[2016-09-16] MEDS: Miralax 17gm pkt ORAL SCH (09:23)
[2016-09-16] MEDS: Ertapenem 0.5 GM in NS 55 ML IV SCH (09:23)
[2016-09-16] MEDS: Heparin 5000 units/ml inj SUBQ SCH ×2 (09:25→20:50)
[2016-09-16] MEDS: Nystatin Powder 100,000 units/gm 15gm TOPIC SCH ×3 (09:28→17:42)
--- NOTE | 2016-09-16 10:47 | Pulmonology Progress Note ---
Assessment/Plan Problems: (1) Acute respiratory failure (2) CKD (chronic kidney disease) (3) Hyperkalemia (4) COPD (chronic obstructive pulmonary disease) (5) Anemia (6) MINA (obstructive sleep apnea) Assessment/Plan h/h stable on bipap again all meds and notes reviewed pt needs continuous BIPA, I suggested trach to the patient and she agreed will ask surgeon to see her. pt agreed with tracheostomy Subjective ROS Limited/Unobtainable: No Constitutional: Reports: no symptoms HEENT: Repors: no symptoms Respiratory: Reports: no symptoms Cardiovascular: Reports: no symptoms Allergies: Coded Allergies: AMOXICILLIN (Verified Allergy, Mild, RASH, 12/25/09) MORPHINE (Unverified Allergy, Unknown, 09/06/16) PENICILLINS (Unverified Allergy, Unknown, 04/06/16) Objective Last 24 Hour Vital Signs Date Time Temp Pulse Resp B/P Pulse Ox O2 Delivery O2 Flow Rate FiO2 09/16/16 09:10 87 23 94 Facial 6.0 09/16/16 08:00 79 09/16/16 08:00 98.4 74 24 108/60 97 Bi-pap 09/16/16 08:00 8.0 09/16/16 07:40 78 25 97 Facial 6.0 09/16/16 07:40 97 Bi-pap 09/16/16 07:40 Bi-pap 09/16/16 05:06 79 20 97 Facial 6.0 09/16/16 04:00 81 09/16/16 04:00 8.0 09/16/16 04:00 97.9 83 21 117/69 95 Bi-pap 6.0 09/16/16 03:13 87 22 97 Facial 8.0 09/16/16 01:10 83 17 93 Facial 8.0 09/16/16 00:00 97.4 85 14 102/68 90 Bi-pap 8.0 09/16/16 00:00 8.0 09/16/16 00:00 92 09/15/16 23:28 90 27 94 Facial 6.0 09/15/16 21:24 86 28 96 Facial 6.0 09/15/16 20:32 97.7 85 16 103/54 96 Bi-pap 09/15/16 20:00 6.0 09/15/16 20:00 78 09/15/16 19:10 Bi-pap 6.0 09/15/16 19:10 95 Bi-pap 6.0 09/15/16 19:10 89 24 95 Facial 6.0 09/15/16 16:49 72 24 94 Facial 6.0 09/15/16 16:00 90 09/15/16 16:00 35 09/15/16 16:00 97.8 86 21 123/92 96 Bi-pap 50 09/15/16 14:30 75 22 95 Facial 6.0 09/15/16 12:47 70 18 95 Facial 6.0 09/15/16 12:00 35 09/15/16 12:00 97.9 89 20 110/57 96 Bi-pap 50 09/15/16 11:53 90 Intake and Output 09/15/16 09/16/16 19:00 07:00 Intake Total 216 ml 120 ml Output Total 250 ml Balance -34 ml 120 ml Intake Oral 120 ml 120 ml IV Total 96 ml Output Urine Total 250 ml # Bowel Movements 1 1 General Appearance: WD/WN, no acute distress HEENT: normocephalic Respiratory/Chest: chest wall non-tender, lungs clear, normal breath sounds Breasts: no masses Cardiovascular: normal peripheral pulses, normal rate, regular rhythm Abdomen: normal bowel sounds, soft, non tender Extremities: no cyanosis 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 Laboratory Tests 09/16/16 03:25: White Blood Count 4.8, Red Blood Count 2.89L, Hemoglobin 8.6L, Hematocrit 27.4L , Mean Corpuscular Volume 95, Mean Corpuscular Hemoglobin 29.7, Mean Corpuscular Hemoglobin Concent 31.3L, Red Cell Distribution Width 14.4, Platelet Count 139L, Mean Platelet Volume 6.3L, Neutrophils (%) (Auto) 70.8, Lymphocytes (%) (Auto) 18.0L, Monocytes (%) (Auto) 7.6, Eosinophils (%) (Auto) 2.7, Basophils (%) (Auto) 0.8, Sodium Level 142, Potassium Level 4.6, Chloride Level 95L, Carbon Dioxide Level 37H, Anion Gap 10, Blood Urea Nitrogen 61H, Creatinine 3.3H, Estimat Glomerular Filtration Rate , Glucose Level 118H, Calcium Level 8.3L, Total Bilirubin 0.3, Aspartate Amino Transf (AST/SGOT) 11, Alanine Aminotransferase (ALT/SGPT) 5, Alkaline Phosphatase 53, Pro-B-Type Natriuretic Peptide 9622H, Total Protein 6.6, Albumin 3.0L, Globulin 3.6, Albumin/Globulin Ratio 0.8L Current Medications Medications (Trade) Dose Ordered Sig/Kalyn Route PRN Reason Start Time Stop Time Status Last Admin Dose Admin Acetaminophen (Tylenol) 650 mg Q4H PRN ORAL T>100.5 09/13/16 18:30 10/13/16 18:29 09/15/16 15:49 Albuterol/ Ipratropium (DuoNeb 0.5-3(2.5)mg/3ml) 3 ml Q4H PRN HHN Shortness of Breath 09/13/16 18:30 09/18/16 18:29 Dextrose (Dextrose 50%) STAT PRN IV Hypoglycemia 09/13/16 18:15 10/13/16 18:14 Epoetin Santos (Procrit (for ESRD on dialysis)) 7,000 units TUE-TUE-TUE SUBQ 09/15/16 21:00 10/15/16 20:59 09/15/16 20:31 Ertapenem/Sodium Chloride (INVanz/Sodium Chloride) 55 ml @ 110 mls/hr Q24H IV 09/14/16 09:00 09/19/16 08:59 09/16/16 09:23 Folic Acid (Folate) 2 mg DAILY ORAL 09/14/16 09:00 10/14/16 08:59 09/16/16 09:23 Heparin Sodium (Porcine) (Heparin 5000 units/ml) 5,000 units EVERY 12 HOURS SUBQ 09/13/16 21:00 10/13/16 20:59 09/16/16 09:25 Letrozole (Femara) 2.5 mg DAILY ORAL 09/14/16 09:00 09/19/16 08:59 09/16/16 09:23 Nystatin (Nystop Powder) 1 applic THREE TIMES A DAY TOPIC 09/13/16 18:00 10/13/16 17:59 09/16/16 09:28 Ondansetron HCl (Zofran) 4 mg Q6H PRN IVP Nausea & Vomiting 09/13/16 18:30 10/13/16 18:29 Pantoprazole (Protonix) 40 mg EVERY 12 HOURS ORAL 09/14/16 21:00 10/14/16 20:59 09/16/16 09:23 Polyethylene Glycol (Miralax) 17 gm DAILY ORAL 09/14/16 09:00 10/14/16 08:59 09/16/16 09:23 Polyethylene Glycol (Miralax) 17 gm DAILYPRN PRN ORAL Constipation 09/13/16 18:30 10/13/16 18:29 09/15/16 01:49 Pravastatin Sodium (Pravachol) 20 mg BEDTIME ORAL 09/13/16 21:00 10/13/16 20:59 09/15/16 20:31 Sevelamer Carbonate (Renvela) 1,600 mg THREE TIMES A DAY ORAL 09/15/16 13:00 10/15/16 12:59 09/16/16 09:23 Temazepam (Restoril) 15 mg HSPRN PRN ORAL Insomnia 09/13/16 21:00 09/20/16 20:59 ARASH MIRANDA Sep 16, 2016 10:47
--- NOTE | 2016-09-16 10:52 | General Progress Note ---
Progress Note Progress Note Surgery: plan for trach on tuesday at 11:30am David Harman Sep 16, 2016 10:52
--- NOTE | 2016-09-16 10:53 | General Progress Note ---
Assessment/Plan Status: unchanged Status Narrative low urine out put- due for trach on 09/20 Assessment/Plan CKD- and acute renal failure Acute respiratory failure High K Obese COPD , rising Co2 CHF, Diastolic MINA UTI Anemia GI Bleed, GI bleeding At Fib Pulm HTN Low B12 Plan; 24 h Urine CrCl and Protein- ordered BIPAP- pulm support add Renvela Stop Sildenifil Optimize cardiac status- Monitor renal parameters and lytes- Avoid nephrotoxics B12 SQ- PO Folate due for trach Subjective ROS Limited/Unobtainable: No Constitutional: Reports: malaise Allergies: Coded Allergies: AMOXICILLIN (Verified Allergy, Mild, RASH, 12/25/09) MORPHINE (Unverified Allergy, Unknown, 09/06/16) PENICILLINS (Unverified Allergy, Unknown, 04/06/16) Objective Last 24 Hour Vital Signs Date Time Temp Pulse Resp B/P Pulse Ox O2 Delivery O2 Flow Rate FiO2 09/16/16 09:10 87 23 94 Facial 6.0 09/16/16 08:00 79 09/16/16 08:00 98.4 74 24 108/60 97 Bi-pap 09/16/16 08:00 8.0 09/16/16 07:40 78 25 97 Facial 6.0 09/16/16 07:40 97 Bi-pap 09/16/16 07:40 Bi-pap 09/16/16 05:06 79 20 97 Facial 6.0 09/16/16 04:00 81 09/16/16 04:00 8.0 09/16/16 04:00 97.9 83 21 117/69 95 Bi-pap 6.0 09/16/16 03:13 87 22 97 Facial 8.0 09/16/16 01:10 83 17 93 Facial 8.0 09/16/16 00:00 97.4 85 14 102/68 90 Bi-pap 8.0 09/16/16 00:00 8.0 09/16/16 00:00 92 09/15/16 23:28 90 27 94 Facial 6.0 09/15/16 21:24 86 28 96 Facial 6.0 09/15/16 20:32 97.7 85 16 103/54 96 Bi-pap 09/15/16 20:00 6.0 09/15/16 20:00 78 09/15/16 19:10 Bi-pap 6.0 09/15/16 19:10 95 Bi-pap 6.0 09/15/16 19:10 89 24 95 Facial 6.0 09/15/16 16:49 72 24 94 Facial 6.0 09/15/16 16:00 90 09/15/16 16:00 35 09/15/16 16:00 97.8 86 21 123/92 96 Bi-pap 50 09/15/16 14:30 75 22 95 Facial 6.0 09/15/16 12:47 70 18 95 Facial 6.0 09/15/16 12:00 35 09/15/16 12:00 97.9 89 20 110/57 96 Bi-pap 50 09/15/16 11:53 90 Intake and Output 09/15/16 09/16/16 19:00 07:00 Intake Total 216 ml 120 ml Output Total 250 ml Balance -34 ml 120 ml Intake Oral 120 ml 120 ml IV Total 96 ml Output Urine Total 250 ml # Bowel Movements 1 1 Laboratory Tests 09/16/16 03:25: White Blood Count 4.8, Red Blood Count 2.89L, Hemoglobin 8.6L, Hematocrit 27.4L , Mean Corpuscular Volume 95, Mean Corpuscular Hemoglobin 29.7, Mean Corpuscular Hemoglobin Concent 31.3L, Red Cell Distribution Width 14.4, Platelet Count 139L, Mean Platelet Volume 6.3L, Neutrophils (%) (Auto) 70.8, Lymphocytes (%) (Auto) 18.0L, Monocytes (%) (Auto) 7.6, Eosinophils (%) (Auto) 2.7, Basophils (%) (Auto) 0.8, Sodium Level 142, Potassium Level 4.6, Chloride Level 95L, Carbon Dioxide Level 37H, Anion Gap 10, Blood Urea Nitrogen 61H, Creatinine 3.3H, Estimat Glomerular Filtration Rate , Glucose Level 118H, Calcium Level 8.3L, Total Bilirubin 0.3, Aspartate Amino Transf (AST/SGOT) 11, Alanine Aminotransferase (ALT/SGPT) 5, Alkaline Phosphatase 53, Pro-B-Type Natriuretic Peptide 9622H, Total Protein 6.6, Albumin 3.0L, Globulin 3.6, Albumin/Globulin Ratio 0.8L Height (Feet): 5 Height (Inches): 4.00 Weight (Pounds): 337 EENT: other - BIPAP Cardiovascular: normal rate Respiratory/Chest: decreased breath sounds Abdomen: other - obese Objective no change COURTNEY LOPEZ Sep 16, 2016 10:53
[2016-09-16 12:00] VITALS: BP 121/65
[2016-09-16 16:00] VITALS: BP 121/71
--- NOTE | 2016-09-16 17:41 | General Progress Note ---
Assessment/Plan Assessment/Plan Assessment - UGIB - resolved - Anemia-Last EGD/Colon 05/2014 (duodenal AVM- cauterized, mild diverticulosis) - Chronic hypercapnic resp failure - Renal failure - Morbid obesity - CHF - atrial fibrillation Recommendations - await trach - Rx empirically with H2B - Monitor labs - Elevate HOB - PO as tolerated Subjective Allergies: Coded Allergies: AMOXICILLIN (Verified Allergy, Mild, RASH, 12/25/09) MORPHINE (Unverified Allergy, Unknown, 09/06/16) PENICILLINS (Unverified Allergy, Unknown, 04/06/16) Subjective above noted tracheostomy planned H&H slightly lower today Objective Last 24 Hour Vital Signs Date Time Temp Pulse Resp B/P Pulse Ox O2 Delivery O2 Flow Rate FiO2 09/16/16 17:18 84 15 95 Facial 6.0 09/16/16 16:00 78 09/16/16 16:00 97.8 82 20 121/71 97 Bi-pap 6.0 09/16/16 16:00 6.0 09/16/16 15:15 85 19 95 Facial 6.0 09/16/16 14:00 83 28 95 Facial 6.0 09/16/16 12:00 8.0 09/16/16 12:00 97.8 86 20 121/65 97 Bi-pap 09/16/16 12:00 81 09/16/16 11:15 79 26 95 Facial 6.0 09/16/16 09:10 87 23 94 Facial 6.0 09/16/16 08:00 79 09/16/16 08:00 98.4 74 24 108/60 97 Bi-pap 09/16/16 08:00 8.0 09/16/16 07:40 78 25 97 Facial 6.0 09/16/16 07:40 97 Bi-pap 09/16/16 07:40 Bi-pap 09/16/16 05:06 79 20 97 Facial 6.0 09/16/16 04:00 81 09/16/16 04:00 8.0 09/16/16 04:00 97.9 83 21 117/69 95 Bi-pap 6.0 09/16/16 03:13 87 22 97 Facial 8.0 09/16/16 01:10 83 17 93 Facial 8.0 09/16/16 00:00 97.4 85 14 102/68 90 Bi-pap 8.0 09/16/16 00:00 8.0 09/16/16 00:00 92 09/15/16 23:28 90 27 94 Facial 6.0 09/15/16 21:24 86 28 96 Facial 6.0 09/15/16 20:32 97.7 85 16 103/54 96 Bi-pap 09/15/16 20:00 6.0 09/15/16 20:00 78 09/15/16 19:10 Bi-pap 6.0 09/15/16 19:10 95 Bi-pap 6.0 09/15/16 19:10 89 24 95 Facial 6.0 Intake and Output 09/15/16 09/16/16 19:00 07:00 Intake Total 216 ml 120 ml Output Total 250 ml Balance -34 ml 120 ml Intake Oral 120 ml 120 ml IV Total 96 ml Output Urine Total 250 ml # Bowel Movements 1 1 Laboratory Tests 09/16/16 03:25: White Blood Count 4.8, Red Blood Count 2.89L, Hemoglobin 8.6L, Hematocrit 27.4L , Mean Corpuscular Volume 95, Mean Corpuscular Hemoglobin 29.7, Mean Corpuscular Hemoglobin Concent 31.3L, Red Cell Distribution Width 14.4, Platelet Count 139L, Mean Platelet Volume 6.3L, Neutrophils (%) (Auto) 70.8, Lymphocytes (%) (Auto) 18.0L, Monocytes (%) (Auto) 7.6, Eosinophils (%) (Auto) 2.7, Basophils (%) (Auto) 0.8, Sodium Level 142, Potassium Level 4.6, Chloride Level 95L, Carbon Dioxide Level 37H, Anion Gap 10, Blood Urea Nitrogen 61H, Creatinine 3.3H, Estimat Glomerular Filtration Rate , Glucose Level 118H, Calcium Level 8.3L, Total Bilirubin 0.3, Aspartate Amino Transf (AST/SGOT) 11, Alanine Aminotransferase (ALT/SGPT) 5, Alkaline Phosphatase 53, Pro-B-Type Natriuretic Peptide 9622H, Total Protein 6.6, Albumin 3.0L, Globulin 3.6, Albumin/Globulin Ratio 0.8L Height (Feet): 5 Height (Inches): 4.00 Weight (Pounds): 337 Objective Obese WW NCAT supple Coarse BS, ronchi RR Abd soft NT ND, obese (+) edema Neuro - responsive BRETT DALE Sep 16, 2016 17:41
--- NOTE | 2016-09-16 19:36 | General Progress Note ---
Assessment/Plan Assessment/Plan 1. Acute respiratory failure requiring BiPAP with respiratory acidosis --on continuous Bipap hs and prn, patient now on Trillogy vent -patient now out of ICU on Nasal canula -lasix per pulm and renal, patients friend declins patient having trach 2. Acute gastrointestinal bleed with acute anemia requiring blood transfusion. -s/p BT 4 units, H/H stable, no more episodes of hematemesis -diet was advanced by GI currently on soft diet tolerating diet - follow Dr Rodriguez recommendations, UGI is limited study no ulcers seen, has esophageal dysmotility -continue PPI -not safe for EGD at this time 3. Acute kidney injury on chronic kidney disease. now with oliguria -stable, renal US noted - follow Dr Zamora recommendations, lasix drip to be ordered by Dr. Rene , monitor urine output 4. Hyperkalemia., resolved. 5. Acute diastolic ongestive heart failure. - lasix per cards - Dr Peralta cardio 6. Atrial fibrillation. - off eliquis for now, at risk for cva 7. Pulmonary hypertension. - off sildanefil 8. Morbid obesity: diet and excercise when medically stable 9. Chronic obstructive pulmonary disease. continue nebulizer 10. presumed MINA bipap, may benefit from Trillogy vent as outpatient as has not had a formal sleep study 11. UTI Ecoli ESBL with sepsis: antibioitics per ID,finished course of Erthapenam 12. morbid obesity: diet and weight loss encouraged 13. DJD: will need pt/ot, home health once dc, will order large wheel chair, hospital bed for home use 14. hypotension: improved 15. VERONICA: 24 hour urine ordered, appreciate nephrology input PT/OT when clinically more stable improving condition will hold dc planning until more stable Subjective Date patient seen: Sep 16, 2016 Allergies: Coded Allergies: AMOXICILLIN (Verified Allergy, Mild, RASH, 12/25/09) MORPHINE (Unverified Allergy, Unknown, 09/06/16) PENICILLINS (Unverified Allergy, Unknown, 04/06/16) Subjective The patient was seen and examined at bedside and all new and available data was reviewed in the patients chart. I agree with the above findings, impression and plan. (Patient seen earlier today. Signature stamp does not reflect patient encounter time.). -Manny Nolan MD Objective Last 24 Hour Vital Signs Date Time Temp Pulse Resp B/P Pulse Ox O2 Delivery O2 Flow Rate FiO2 09/16/16 19:27 Bi-pap 09/16/16 19:27 81 32 91 8.0 09/16/16 19:27 91 Bi-pap 09/16/16 17:18 84 15 95 Facial 6.0 09/16/16 16:00 78 09/16/16 16:00 97.8 82 20 121/71 97 Bi-pap 6.0 09/16/16 16:00 6.0 09/16/16 15:15 85 19 95 Facial 6.0 09/16/16 14:00 83 28 95 Facial 6.0 09/16/16 12:00 8.0 09/16/16 12:00 97.8 86 20 121/65 97 Bi-pap 09/16/16 12:00 81 09/16/16 11:15 79 26 95 Facial 6.0 09/16/16 09:10 87 23 94 Facial 6.0 09/16/16 08:00 79 09/16/16 08:00 98.4 74 24 108/60 97 Bi-pap 09/16/16 08:00 8.0 09/16/16 07:40 78 25 97 Facial 6.0 09/16/16 07:40 97 Bi-pap 09/16/16 07:40 Bi-pap 09/16/16 05:06 79 20 97 Facial 6.0 09/16/16 04:00 81 09/16/16 04:00 8.0 09/16/16 04:00 97.9 83 21 117/69 95 Bi-pap 6.0 09/16/16 03:13 87 22 97 Facial 8.0 09/16/16 01:10 83 17 93 Facial 8.0 09/16/16 00:00 97.4 85 14 102/68 90 Bi-pap 8.0 09/16/16 00:00 8.0 09/16/16 00:00 92 09/15/16 23:28 90 27 94 Facial 6.0 09/15/16 21:24 86 28 96 Facial 6.0 09/15/16 20:32 97.7 85 16 103/54 96 Bi-pap 09/15/16 20:00 6.0 09/15/16 20:00 78 Intake and Output 09/15/16 09/16/16 19:00 07:00 Intake Total 216 ml 120 ml Output Total 250 ml Balance -34 ml 120 ml Intake Oral 120 ml 120 ml IV Total 96 ml Output Urine Total 250 ml # Bowel Movements 1 1 Laboratory Tests 09/16/16 03:25: White Blood Count 4.8, Red Blood Count 2.89L, Hemoglobin 8.6L, Hematocrit 27.4L , Mean Corpuscular Volume 95, Mean Corpuscular Hemoglobin 29.7, Mean Corpuscular Hemoglobin Concent 31.3L, Red Cell Distribution Width 14.4, Platelet Count 139L, Mean Platelet Volume 6.3L, Neutrophils (%) (Auto) 70.8, Lymphocytes (%) (Auto) 18.0L, Monocytes (%) (Auto) 7.6, Eosinophils (%) (Auto) 2.7, Basophils (%) (Auto) 0.8, Sodium Level 142, Potassium Level 4.6, Chloride Level 95L, Carbon Dioxide Level 37H, Anion Gap 10, Blood Urea Nitrogen 61H, Creatinine 3.3H, Estimat Glomerular Filtration Rate , Glucose Level 118H, Calcium Level 8.3L, Total Bilirubin 0.3, Aspartate Amino Transf (AST/SGOT) 11, Alanine Aminotransferase (ALT/SGPT) 5, Alkaline Phosphatase 53, Pro-B-Type Natriuretic Peptide 9622H, Total Protein 6.6, Albumin 3.0L, Globulin 3.6, Albumin/Globulin Ratio 0.8L Height (Feet): 5 Height (Inches): 4.00 Weight (Pounds): 337 General Appearance: no apparent distress, alert EENT: PERRL/EOMI, pharynx normal Neck: non-tender, supple Cardiovascular: normal rate, regular rhythm, no gallop/murmur, no JVD Respiratory/Chest: chest wall non-tender, normal breath sounds, no respiratory distress, decreased breath sounds Abdomen: non tender, soft, no mass Extremities: non-tender, normal inspection, no calf tenderness Edema: no edema noted Arm (L), no edema noted Arm (R), 2+ Leg (L), 2+ Leg (R), 2+ Pedal (L), 2+ Pedal (R), 2+ Generalized Edema: moderate edema 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
[2016-09-16 20:00] VITALS: BP 111/68
--- NOTE | 2016-09-16 23:31 | Progress Note ---
DATE: 09/16/2016 SUBJECTIVE: The patient's mental condition is unchanged since previous encounter, in no acute distress. Calm. No anxiety or agitation. Still has some cognitive impairment. MENTAL STATUS EXAMINATION: The patient is alert and oriented to time, place, person, and situation. Mood is neutral. Affect is constricted. Congruent with mood. Thought process is concrete. Thought content, no suicidal or homicidal ideation, cognition, memory is impaired. ASSESSMENT: Stable. PLAN: 1. We will continue current medication. 2. Provide the patient with supportive therapy and reality orientation. Eda Pena M.D. DR: Jose JOB#: [id number] CC:
[2016-09-17] VITALS: BP 104/60
[2016-09-17 04:00] VITALS: BP 125/79
[2016-09-17 05:30] LABS: BASOPHILS % (AUTO) 1.2 % (0.0-2.0); EOSINOPHILS % (AUTO) 2.2 % (0.0-3.0); MEAN CORPUSCULAR HEMOGLOBIN 29.1 PG (27.0-31.0); MEAN CORPUSCULAR HGB CONC 30.7 G/DL (32.0-36.0); MEAN CORPUSCULAR VOLUME 95 FL (80-99); MEAN PLATELET VOLUME 6.5 FL (6.5-10.1); MONOCYTES % (AUTO) 8.5 % (1.0-10.0); PLATELET COUNT 161 K/UL (150-450); RED BLOOD COUNT 3.01 M/UL (4.20-5.40); RED CELL DISTRIBUTION WIDTH 14.7 % (11.6-14.8); WHITE BLOOD COUNT 5.1 K/UL (4.8-10.8)
[2016-09-17 05:50] LABS: ALANINE AMINOTRANSFERASE 5 U/L (3-33); ALBUMIN/GLOBULIN RATIO 0.8 (1.0-2.7); ANION GAP 7 (5-15); ASPARTATE AMINO TRANSFERASE 10 U/L (5-40); CALCIUM 8.7 mg/dL (8.6-10.2); CARBON DIOXIDE 40 mEQ/L (20-30); CHLORIDE 94 mEQ/L (98-107); CREATININE 3.2 mg/dL (0.5-0.9); HEMOLYSIS 7; MAGNESIUM 2.1 mg/dL (1.7-2.5); PHOSPHORUS 4.5 mg/dL (2.5-4.8); POTASSIUM 4.8 mEQ/L (3.4-4.9); SODIUM 141 mEQ/L (135-145); TOTAL PROTEIN 6.9 g/dL (6.6-8.7); URIC ACID 8.9 mg/dL (3.0-7.5)
[2016-09-17 07:56] VITALS: BP 100/63
[2016-09-17] MEDS: Ertapenem 0.5 GM in NS 55 ML IV SCH (08:42)
[2016-09-17] MEDS: Miralax 17gm pkt ORAL SCH (08:42)
[2016-09-17] MEDS: Heparin 5000 units/ml inj SUBQ SCH ×2 (08:43→21:23)
[2016-09-17] MEDS: Nystatin Powder 100,000 units/gm 15gm TOPIC SCH ×3 (08:43→17:23)
--- NOTE | 2016-09-17 09:47 | General Progress Note ---
Assessment/Plan Status: stable Status Narrative Cr unchanged Assessment/Plan CKD- and acute renal failure Acute respiratory failure High K Obese COPD , rising Co2 CHF, Diastolic MINA UTI Anemia GI Bleed, GI bleeding At Fib Pulm HTN Low B12 Plan; 24 h Urine CrCl and Protein- ordered BIPAP- pulm support add Renvela Stop Sildenifil Optimize cardiac status- Monitor renal parameters and lytes- Avoid nephrotoxics B12 SQ- PO Folate due for trach Subjective ROS Limited/Unobtainable: No Constitutional: Reports: malaise Allergies: Coded Allergies: AMOXICILLIN (Verified Allergy, Mild, RASH, 12/25/09) MORPHINE (Unverified Allergy, Unknown, 09/06/16) PENICILLINS (Unverified Allergy, Unknown, 04/06/16) Objective Last 24 Hour Vital Signs Date Time Temp Pulse Resp B/P Pulse Ox O2 Delivery O2 Flow Rate FiO2 09/17/16 08:05 6.0 09/17/16 08:00 80 09/17/16 07:56 97.5 75 21 100/63 98 Bi-pap 6.0 09/17/16 07:20 Bi-pap 09/17/16 07:19 95 Bi-pap 09/17/16 07:15 78 17 95 Facial 8.0 09/17/16 05:29 77 18 93 Facial 8.0 09/17/16 04:00 85 09/17/16 04:00 97.9 88 21 125/79 96 Bi-pap 6.0 09/17/16 04:00 6.0 09/17/16 03:19 80 14 92 Facial 8.0 09/17/16 01:30 83 26 94 Facial 8.0 09/17/16 00:00 6.0 09/17/16 00:00 92 09/17/16 00:00 98.1 93 20 104/60 97 Bi-pap 6.0 09/16/16 23:31 97 24 90 Facial 8.0 09/16/16 21:12 83 30 91 Facial 8.0 09/16/16 20:00 6.0 09/16/16 20:00 97.8 88 20 111/68 97 Bi-pap 6.0 09/16/16 20:00 90 09/16/16 19:27 Bi-pap 09/16/16 19:27 81 32 91 8.0 09/16/16 19:27 91 Bi-pap 09/16/16 17:18 84 15 95 Facial 6.0 09/16/16 16:00 78 09/16/16 16:00 97.8 82 20 121/71 97 Bi-pap 6.0 09/16/16 16:00 6.0 09/16/16 15:15 85 19 95 Facial 6.0 09/16/16 14:00 83 28 95 Facial 6.0 09/16/16 12:00 8.0 09/16/16 12:00 97.8 86 20 121/65 97 Bi-pap 09/16/16 12:00 81 09/16/16 11:15 79 26 95 Facial 6.0 Intake and Output 09/16/16 09/17/16 19:00 07:00 Intake Total 55 ml Output Total 290 ml 15 ml Balance -235 ml -15 ml IV Total 55 ml Output Urine Total 290 ml 15 ml # Bowel Movements 1 Laboratory Tests 09/17/16 04:10: White Blood Count 5.1, Red Blood Count 3.01L, Hemoglobin 8.8L, Hematocrit 28.6L , Mean Corpuscular Volume 95, Mean Corpuscular Hemoglobin 29.1, Mean Corpuscular Hemoglobin Concent 30.7L, Red Cell Distribution Width 14.7, Platelet Count 161, Mean Platelet Volume 6.5, Neutrophils (%) (Auto) 69.0, Lymphocytes (%) (Auto) 19.0L, Monocytes (%) (Auto) 8.5, Eosinophils (%) (Auto) 2.2, Basophils (%) (Auto) 1.2, Sodium Level 141, Potassium Level 4.8, Chloride Level 94L, Carbon Dioxide Level 40H, Anion Gap 7, Blood Urea Nitrogen 64H, Creatinine 3.2H, Estimat Glomerular Filtration Rate , Glucose Level 138H, Uric Acid 8.9H, Calcium Level 8.7, Phosphorus Level 4.5, Magnesium Level 2.1, Total Bilirubin 0.3, Aspartate Amino Transf (AST/SGOT) 10, Alanine Aminotransferase ( ALT/SGPT) 5, Alkaline Phosphatase 53, Pro-B-Type Natriuretic Peptide 50783I, Total Protein 6.9, Albumin 3.2L, Globulin 3.7, Albumin/Globulin Ratio 0.8L Height (Feet): 5 Height (Inches): 4.00 Weight (Pounds): 339 General Appearance: no apparent distress Objective no change COURTNEY LOPEZ Sep 17, 2016 09:47
[2016-09-17] MEDS ORDERED: NS 275ml ONE ×2 (10:37→10:41)
--- NOTE | 2016-09-17 10:53 | Pulmonology Progress Note ---
Assessment/Plan Problems: (1) Acute respiratory failure (2) CKD (chronic kidney disease) (3) Hyperkalemia (4) COPD (chronic obstructive pulmonary disease) (5) Anemia (6) MINA (obstructive sleep apnea) Assessment/Plan no new complains h/h stable on bipap again all meds and notes reviewed pt needs continuous BIPA, I suggested trach to the patient and she agreed will ask surgeon to see her. pt agreed with tracheostomy on Tuesday all notes and labs, meds reviewed Subjective ROS Limited/Unobtainable: Yes Constitutional: Reports: no symptoms HEENT: Repors: no symptoms Respiratory: Reports: no symptoms Allergies: Coded Allergies: AMOXICILLIN (Verified Allergy, Mild, RASH, 12/25/09) MORPHINE (Unverified Allergy, Unknown, 09/06/16) PENICILLINS (Unverified Allergy, Unknown, 04/06/16) Objective Last 24 Hour Vital Signs Date Time Temp Pulse Resp B/P Pulse Ox O2 Delivery O2 Flow Rate FiO2 09/17/16 08:05 6.0 09/17/16 08:00 80 09/17/16 07:56 97.5 75 21 100/63 98 Bi-pap 6.0 09/17/16 07:20 Bi-pap 09/17/16 07:19 95 Bi-pap 09/17/16 07:15 78 17 95 Facial 8.0 09/17/16 05:29 77 18 93 Facial 8.0 09/17/16 04:00 85 09/17/16 04:00 97.9 88 21 125/79 96 Bi-pap 6.0 09/17/16 04:00 6.0 09/17/16 03:19 80 14 92 Facial 8.0 09/17/16 01:30 83 26 94 Facial 8.0 09/17/16 00:00 6.0 09/17/16 00:00 92 09/17/16 00:00 98.1 93 20 104/60 97 Bi-pap 6.0 09/16/16 23:31 97 24 90 Facial 8.0 09/16/16 21:12 83 30 91 Facial 8.0 09/16/16 20:00 6.0 09/16/16 20:00 97.8 88 20 111/68 97 Bi-pap 6.0 09/16/16 20:00 90 09/16/16 19:27 Bi-pap 09/16/16 19:27 81 32 91 8.0 09/16/16 19:27 91 Bi-pap 09/16/16 17:18 84 15 95 Facial 6.0 09/16/16 16:00 78 09/16/16 16:00 97.8 82 20 121/71 97 Bi-pap 6.0 09/16/16 16:00 6.0 09/16/16 15:15 85 19 95 Facial 6.0 09/16/16 14:00 83 28 95 Facial 6.0 09/16/16 12:00 8.0 09/16/16 12:00 97.8 86 20 121/65 97 Bi-pap 09/16/16 12:00 81 09/16/16 11:15 79 26 95 Facial 6.0 Intake and Output 09/16/16 09/17/16 19:00 07:00 Intake Total 55 ml Output Total 290 ml 15 ml Balance -235 ml -15 ml IV Total 55 ml Output Urine Total 290 ml 15 ml # Bowel Movements 1 General Appearance: WD/WN HEENT: normocephalic, atraumatic Respiratory/Chest: chest wall non-tender, lungs clear Breasts: no masses Abdomen: normal bowel sounds, soft, non tender Genitourinary: normal external genitalia Extremities: no cyanosis Skin: no rash Laboratory Tests 09/17/16 04:10: White Blood Count 5.1, Red Blood Count 3.01L, Hemoglobin 8.8L, Hematocrit 28.6L , Mean Corpuscular Volume 95, Mean Corpuscular Hemoglobin 29.1, Mean Corpuscular Hemoglobin Concent 30.7L, Red Cell Distribution Width 14.7, Platelet Count 161, Mean Platelet Volume 6.5, Neutrophils (%) (Auto) 69.0, Lymphocytes (%) (Auto) 19.0L, Monocytes (%) (Auto) 8.5, Eosinophils (%) (Auto) 2.2, Basophils (%) (Auto) 1.2, Sodium Level 141, Potassium Level 4.8, Chloride Level 94L, Carbon Dioxide Level 40H, Anion Gap 7, Blood Urea Nitrogen 64H, Creatinine 3.2H, Estimat Glomerular Filtration Rate , Glucose Level 138H, Uric Acid 8.9H, Calcium Level 8.7, Phosphorus Level 4.5, Magnesium Level 2.1, Total Bilirubin 0.3, Aspartate Amino Transf (AST/SGOT) 10, Alanine Aminotransferase ( ALT/SGPT) 5, Alkaline Phosphatase 53, Pro-B-Type Natriuretic Peptide 27676F, Total Protein 6.9, Albumin 3.2L, Globulin 3.7, Albumin/Globulin Ratio 0.8L Current Medications Medications (Trade) Dose Ordered Sig/Kalyn Route PRN Reason Start Time Stop Time Status Last Admin Dose Admin Acetaminophen (Tylenol) 650 mg Q4H PRN ORAL T>100.5 09/13/16 18:30 10/13/16 18:29 09/15/16 15:49 Albuterol/ Ipratropium (DuoNeb 0.5-3(2.5)mg/3ml) 3 ml Q4H PRN HHN Shortness of Breath 09/13/16 18:30 09/18/16 18:29 Dextrose (Dextrose 50%) STAT PRN IV Hypoglycemia 09/13/16 18:15 10/13/16 18:14 Epoetin Santos (Procrit (for ESRD on dialysis)) 7,000 units TUE-TUE-TUE SUBQ 09/15/16 21:00 10/15/16 20:59 09/15/16 20:31 Ertapenem/Sodium Chloride (INVanz/Sodium Chloride) 55 ml @ 110 mls/hr Q24H IV 09/14/16 09:00 09/19/16 08:59 09/17/16 08:42 Folic Acid (Folate) 2 mg DAILY ORAL 09/14/16 09:00 10/14/16 08:59 09/17/16 08:42 Heparin Sodium (Porcine) (Heparin 5000 units/ml) 5,000 units EVERY 12 HOURS SUBQ 09/13/16 21:00 10/13/16 20:59 09/17/16 08:43 Letrozole (Femara) 2.5 mg DAILY ORAL 09/14/16 09:00 09/19/16 08:59 09/17/16 08:42 Nystatin (Nystop Powder) 1 applic THREE TIMES A DAY TOPIC 09/13/16 18:00 10/13/16 17:59 09/17/16 08:43 Ondansetron HCl (Zofran) 4 mg Q6H PRN IVP Nausea & Vomiting 09/13/16 18:30 10/13/16 18:29 Pantoprazole (Protonix) 40 mg EVERY 12 HOURS ORAL 09/14/16 21:00 10/14/16 20:59 09/17/16 08:42 Polyethylene Glycol (Miralax) 17 gm DAILY ORAL 09/14/16 09:00 10/14/16 08:59 09/16/16 09:23 Polyethylene Glycol (Miralax) 17 gm DAILYPRN PRN ORAL Constipation 09/13/16 18:30 10/13/16 18:29 09/15/16 01:49 Pravastatin Sodium (Pravachol) 20 mg BEDTIME ORAL 09/13/16 21:00 10/13/16 20:59 09/16/16 20:49 Sevelamer Carbonate (Renvela) 1,600 mg THREE TIMES A DAY ORAL 09/15/16 13:00 10/15/16 12:59 09/17/16 08:42 Temazepam (Restoril) 15 mg HSPRN PRN ORAL Insomnia 09/13/16 21:00 09/20/16 20:59 ARASH MIRANDA Sep 17, 2016 10:53
[2016-09-17 11:37] LABS: CREATININE 3.2 mg/dL (0.5-0.9)
--- NOTE | 2016-09-17 11:53 | Infectious Diseases Prog Note ---
Assessment/Plan Assessment/Plan antibiotics : ertapenem A 1. e.coli esbl UTI 2. DM 3. renal failure 4. CHF 5. respiratory failure P 1. continue ertapenem until tomorrow 2. will follow up cultures Subjective ROS Limited/Unobtainable: Yes Allergies: Coded Allergies: AMOXICILLIN (Verified Allergy, Mild, RASH, 12/25/09) MORPHINE (Unverified Allergy, Unknown, 09/06/16) PENICILLINS (Unverified Allergy, Unknown, 04/06/16) Objective Vital Signs Last 24 Hour Vital Signs Date Time Temp Pulse Resp B/P Pulse Ox O2 Delivery O2 Flow Rate FiO2 09/17/16 08:05 6.0 09/17/16 08:00 80 09/17/16 07:56 97.5 75 21 100/63 98 Bi-pap 6.0 09/17/16 07:20 Bi-pap 09/17/16 07:19 95 Bi-pap 09/17/16 07:15 78 17 95 Facial 8.0 09/17/16 05:29 77 18 93 Facial 8.0 09/17/16 04:00 85 09/17/16 04:00 97.9 88 21 125/79 96 Bi-pap 6.0 09/17/16 04:00 6.0 09/17/16 03:19 80 14 92 Facial 8.0 09/17/16 01:30 83 26 94 Facial 8.0 09/17/16 00:00 6.0 09/17/16 00:00 92 09/17/16 00:00 98.1 93 20 104/60 97 Bi-pap 6.0 09/16/16 23:31 97 24 90 Facial 8.0 09/16/16 21:12 83 30 91 Facial 8.0 09/16/16 20:00 6.0 09/16/16 20:00 97.8 88 20 111/68 97 Bi-pap 6.0 09/16/16 20:00 90 09/16/16 19:27 Bi-pap 09/16/16 19:27 81 32 91 8.0 09/16/16 19:27 91 Bi-pap 09/16/16 17:18 84 15 95 Facial 6.0 09/16/16 16:00 78 09/16/16 16:00 97.8 82 20 121/71 97 Bi-pap 6.0 09/16/16 16:00 6.0 09/16/16 15:15 85 19 95 Facial 6.0 09/16/16 14:00 83 28 95 Facial 6.0 09/16/16 12:00 8.0 09/16/16 12:00 97.8 86 20 121/65 97 Bi-pap 09/16/16 12:00 81 Height (Feet): 5 Height (Inches): 4.00 Weight (Pounds): 339 HEENT: other - on bipap Respiratory/Chest: lungs clear Cardiovascular: normal rate, regular rhythm, no gallop/murmur Abdomen: soft, non tender Extremities: other - + edema Laboratory Tests Test 09/17/16 04:10 09/17/16 11:00 White Blood Count 5.1 K/UL (4.8-10.8) Red Blood Count 3.01 M/UL (4.20-5.40) L Hemoglobin 8.8 G/DL (12.0-16.0) L Hematocrit 28.6 % (37.0-47.0) L Mean Corpuscular Volume 95 FL (80-99) Mean Corpuscular Hemoglobin 29.1 PG (27.0-31.0) Mean Corpuscular Hemoglobin Concent 30.7 G/DL (32.0-36.0) L Red Cell Distribution Width 14.7 % (11.6-14.8) Platelet Count 161 K/UL (150-450) Mean Platelet Volume 6.5 FL (6.5-10.1) Neutrophils (%) (Auto) 69.0 % (45.0-75.0) Lymphocytes (%) (Auto) 19.0 % (20.0-45.0) L Monocytes (%) (Auto) 8.5 % (1.0-10.0) Eosinophils (%) (Auto) 2.2 % (0.0-3.0) Basophils (%) (Auto) 1.2 % (0.0-2.0) Sodium Level 141 mEQ/L (135-145) Potassium Level 4.8 mEQ/L (3.4-4.9) Chloride Level 94 mEQ/L (98-107) L Carbon Dioxide Level 40 mEQ/L (20-30) H Anion Gap 7 (5-15) Blood Urea Nitrogen 64 mg/dL (7-23) H Creatinine 3.2 mg/dL (0.5-0.9) H 3.2 mg/dL (0.5-0.9) H Estimat Glomerular Filtration Rate mL/min (>60) mL/min (>60) Glucose Level 138 mg/dL (74-106) H Uric Acid 8.9 mg/dL (3.0-7.5) H Calcium Level 8.7 mg/dL (8.6-10.2) Phosphorus Level 4.5 mg/dL (2.5-4.8) Magnesium Level 2.1 mg/dL (1.7-2.5) Total Bilirubin 0.3 mg/dL (0.0-1.2) Aspartate Amino Transf (AST/SGOT) 10 U/L (5-40) Alanine Aminotransferase (ALT/SGPT) 5 U/L (3-33) Alkaline Phosphatase 53 U/L (35-104) Pro-B-Type Natriuretic Peptide 04305 pg/mL (0-125) H Total Protein 6.9 g/dL (6.6-8.7) Albumin 3.2 g/dL (3.5-5.2) L Globulin 3.7 g/dL Albumin/Globulin Ratio 0.8 (1.0-2.7) L Urine Collection Time 24 HRS Urine Total Volume 500 ML Urine Creatinine Pending Urine Creatinine 24 Hour Pending Patient Height Inches (Creat Clear) 64 INCHES Patient Weight Pounds (Creat Clear) 339 LBS Creatinine Clearance Pending Urine Total Protein mg/dL Pending Urine Total Protein 24 Hour Pending TATIANNA JONES Sep 17, 2016 11:53
[2016-09-17 12:00] VITALS: BP 99/59
--- NOTE | 2016-09-17 14:55 | Cardiology Progress Note ---
Assessment/Plan Assessment/Plan 1. Coffee-ground emesis. 2. Anemia, worsened, chronic. 3. Gastrointestinal bleed. 4. Permanent atrial fibrillation. 5. History of pulmonary hypertension of significant degree, treated with sildenafil. 6. Systemic hypertension. 7. Chronic renal insufficiency. 8. Diabetes mellitus 9. respiratory acidosis 10. hypotension 11. diastolic failure hgb noted low stable tele noted afib bp seem low off eliquis for now tele noted afib vr ok is off sildenafil diurtics as bp allow tach considered Subjective Cardiovascular: Denies: chest pain Respiratory: Reports: shortness of breath Gastrointestinal/Abdominal: Denies: abdominal pain Genitourinary: Denies: burning Subjective on bipap much more awake today and is communicative Objective Last 24 Hour Vital Signs Date Time Temp Pulse Resp B/P Pulse Ox O2 Delivery O2 Flow Rate FiO2 09/17/16 12:00 6.0 09/17/16 12:00 71 09/17/16 12:00 96.1 80 24 99/59 96 Bi-pap 6.0 09/17/16 08:05 6.0 09/17/16 08:00 80 09/17/16 07:56 97.5 75 21 100/63 98 Bi-pap 6.0 09/17/16 07:20 Bi-pap 09/17/16 07:19 95 Bi-pap 09/17/16 07:15 78 17 95 Facial 8.0 09/17/16 05:29 77 18 93 Facial 8.0 09/17/16 04:00 85 09/17/16 04:00 97.9 88 21 125/79 96 Bi-pap 6.0 09/17/16 04:00 6.0 09/17/16 03:19 80 14 92 Facial 8.0 09/17/16 01:30 83 26 94 Facial 8.0 09/17/16 00:00 6.0 09/17/16 00:00 92 09/17/16 00:00 98.1 93 20 104/60 97 Bi-pap 6.0 09/16/16 23:31 97 24 90 Facial 8.0 09/16/16 21:12 83 30 91 Facial 8.0 09/16/16 20:00 6.0 09/16/16 20:00 97.8 88 20 111/68 97 Bi-pap 6.0 09/16/16 20:00 90 09/16/16 19:27 Bi-pap 09/16/16 19:27 81 32 91 8.0 09/16/16 19:27 91 Bi-pap 09/16/16 17:18 84 15 95 Facial 6.0 09/16/16 16:00 78 09/16/16 16:00 97.8 82 20 121/71 97 Bi-pap 6.0 09/16/16 16:00 6.0 09/16/16 15:15 85 19 95 Facial 6.0 General Appearance: no apparent distress, alert, obese Neck: supple Cardiovascular: normal rate Respiratory/Chest: decreased breath sounds - left Abdomen: normal bowel sounds, non tender, soft Extremities: severe edema Intake and Output 09/16/16 09/17/16 19:00 07:00 Intake Total 55 ml Output Total 290 ml 15 ml Balance -235 ml -15 ml IV Total 55 ml Output Urine Total 290 ml 15 ml # Bowel Movements 1 Laboratory Tests Test 09/17/16 04:10 09/17/16 11:00 White Blood Count 5.1 K/UL (4.8-10.8) Red Blood Count 3.01 M/UL (4.20-5.40) L Hemoglobin 8.8 G/DL (12.0-16.0) L Hematocrit 28.6 % (37.0-47.0) L Mean Corpuscular Volume 95 FL (80-99) Mean Corpuscular Hemoglobin 29.1 PG (27.0-31.0) Mean Corpuscular Hemoglobin Concent 30.7 G/DL (32.0-36.0) L Red Cell Distribution Width 14.7 % (11.6-14.8) Platelet Count 161 K/UL (150-450) Mean Platelet Volume 6.5 FL (6.5-10.1) Neutrophils (%) (Auto) 69.0 % (45.0-75.0) Lymphocytes (%) (Auto) 19.0 % (20.0-45.0) L Monocytes (%) (Auto) 8.5 % (1.0-10.0) Eosinophils (%) (Auto) 2.2 % (0.0-3.0) Basophils (%) (Auto) 1.2 % (0.0-2.0) Sodium Level 141 mEQ/L (135-145) Potassium Level 4.8 mEQ/L (3.4-4.9) Chloride Level 94 mEQ/L (98-107) L Carbon Dioxide Level 40 mEQ/L (20-30) H Anion Gap 7 (5-15) Blood Urea Nitrogen 64 mg/dL (7-23) H Creatinine 3.2 mg/dL (0.5-0.9) H 3.2 mg/dL (0.5-0.9) H Estimat Glomerular Filtration Rate mL/min (>60) mL/min (>60) Glucose Level 138 mg/dL (74-106) H Uric Acid 8.9 mg/dL (3.0-7.5) H Calcium Level 8.7 mg/dL (8.6-10.2) Phosphorus Level 4.5 mg/dL (2.5-4.8) Magnesium Level 2.1 mg/dL (1.7-2.5) Total Bilirubin 0.3 mg/dL (0.0-1.2) Aspartate Amino Transf (AST/SGOT) 10 U/L (5-40) Alanine Aminotransferase (ALT/SGPT) 5 U/L (3-33) Alkaline Phosphatase 53 U/L (35-104) Pro-B-Type Natriuretic Peptide 46505 pg/mL (0-125) H Total Protein 6.9 g/dL (6.6-8.7) Albumin 3.2 g/dL (3.5-5.2) L Globulin 3.7 g/dL Albumin/Globulin Ratio 0.8 (1.0-2.7) L Urine Collection Time 24 HRS Urine Total Volume 500 ML Urine Creatinine 161 mg/dL Urine Creatinine 24 Hour 805 mg/24hr (740-1570) Patient Height Inches (Creat Clear) 64 INCHES Patient Weight Pounds (Creat Clear) 339 LBS Creatinine Clearance 12 mL/min (71-151) L Urine Total Protein mg/dL 81 mg/dL Urine Total Protein 24 Hour 405.0 mg/24hr (< 150) H BRIANA TELLES Sep 17, 2016 14:55
[2016-09-17 16:00] VITALS: BP 118/69
--- NOTE | 2016-09-17 17:53 | General Progress Note ---
Assessment/Plan Assessment/Plan Assessment - UGIB - resolved - Anemia-Last EGD/Colon 05/2014 (duodenal AVM- cauterized, mild diverticulosis) - Chronic hypercapnic resp failure - Renal failure - Morbid obesity - CHF - atrial fibrillation Recommendations - await trach - Rx empirically with H2B - Monitor labs - Elevate HOB - PO as tolerated Subjective Allergies: Coded Allergies: AMOXICILLIN (Verified Allergy, Mild, RASH, 12/25/09) MORPHINE (Unverified Allergy, Unknown, 09/06/16) PENICILLINS (Unverified Allergy, Unknown, 04/06/16) Subjective no new complaints tracheostomy planned for next week d/w patient re possibility of needing PEG as well Objective Last 24 Hour Vital Signs Date Time Temp Pulse Resp B/P Pulse Ox O2 Delivery O2 Flow Rate FiO2 09/17/16 16:00 78 09/17/16 16:00 97.7 78 22 118/69 96 Bi-pap 6.0 09/17/16 16:00 6.0 09/17/16 12:00 6.0 09/17/16 12:00 71 09/17/16 12:00 96.1 80 24 99/59 96 Bi-pap 6.0 09/17/16 08:05 6.0 09/17/16 08:00 80 09/17/16 07:56 97.5 75 21 100/63 98 Bi-pap 6.0 09/17/16 07:20 Bi-pap 09/17/16 07:19 95 Bi-pap 09/17/16 07:15 78 17 95 Facial 8.0 09/17/16 05:29 77 18 93 Facial 8.0 09/17/16 04:00 85 09/17/16 04:00 97.9 88 21 125/79 96 Bi-pap 6.0 09/17/16 04:00 6.0 09/17/16 03:19 80 14 92 Facial 8.0 09/17/16 01:30 83 26 94 Facial 8.0 09/17/16 00:00 6.0 09/17/16 00:00 92 09/17/16 00:00 98.1 93 20 104/60 97 Bi-pap 6.0 09/16/16 23:31 97 24 90 Facial 8.0 09/16/16 21:12 83 30 91 Facial 8.0 09/16/16 20:00 6.0 09/16/16 20:00 97.8 88 20 111/68 97 Bi-pap 6.0 09/16/16 20:00 90 09/16/16 19:27 Bi-pap 09/16/16 19:27 81 32 91 8.0 09/16/16 19:27 91 Bi-pap Intake and Output 09/16/16 09/17/16 19:00 07:00 Intake Total 55 ml Output Total 290 ml 15 ml Balance -235 ml -15 ml IV Total 55 ml Output Urine Total 290 ml 15 ml # Bowel Movements 1 Laboratory Tests 09/17/16 04:10: White Blood Count 5.1, Red Blood Count 3.01L, Hemoglobin 8.8L, Hematocrit 28.6L , Mean Corpuscular Volume 95, Mean Corpuscular Hemoglobin 29.1, Mean Corpuscular Hemoglobin Concent 30.7L, Red Cell Distribution Width 14.7, Platelet Count 161, Mean Platelet Volume 6.5, Neutrophils (%) (Auto) 69.0, Lymphocytes (%) (Auto) 19.0L, Monocytes (%) (Auto) 8.5, Eosinophils (%) (Auto) 2.2, Basophils (%) (Auto) 1.2, Sodium Level 141, Potassium Level 4.8, Chloride Level 94L, Carbon Dioxide Level 40H, Anion Gap 7, Blood Urea Nitrogen 64H, Creatinine 3.2H, Estimat Glomerular Filtration Rate , Glucose Level 138H, Uric Acid 8.9H, Calcium Level 8.7, Phosphorus Level 4.5, Magnesium Level 2.1, Total Bilirubin 0.3, Aspartate Amino Transf (AST/SGOT) 10, Alanine Aminotransferase ( ALT/SGPT) 5, Alkaline Phosphatase 53, Pro-B-Type Natriuretic Peptide 54022R, Total Protein 6.9, Albumin 3.2L, Globulin 3.7, Albumin/Globulin Ratio 0.8L 09/17/16 11:00: Creatinine 3.2H, Estimat Glomerular Filtration Rate , Urine Collection Time 24, Urine Total Volume 500, Urine Creatinine 161, Urine Creatinine 24 Hour 805, Patient Height Inches (Creat Clear) 64, Patient Weight Pounds (Creat Clear) 339 , Creatinine Clearance 12L, Urine Total Protein mg/dL 81, Urine Total Protein 24 Hour 405.0H Height (Feet): 5 Height (Inches): 4.00 Weight (Pounds): 339 Objective Obese WW NCAT supple Coarse BS, ronchi RR Abd soft NT ND, obese (+) edema Neuro - responsive BRETT DALE Sep 17, 2016 17:53
--- NOTE | 2016-09-17 19:58 | General Progress Note ---
Assessment/Plan Assessment/Plan 1. Acute respiratory failure requiring BiPAP with respiratory acidosis --on continuous Bipap hs and prn, patient now on Trillogy vent -patient now out of ICU on Nasal canula -patient and friend Sean are now in agreement of trach for continuous Bipap, scheduled for Tuesday 2. Acute gastrointestinal bleed with acute anemia requiring blood transfusion. -s/p BT 4 units, H/H stable, no more episodes of hematemesis -diet was advanced by GI currently on soft diet tolerating diet - follow Dr Rodriguez recommendations, UGI is limited study no ulcers seen, has esophageal dysmotility -continue PPI -not safe for EGD at this time 3. Acute kidney injury on chronic kidney disease. now with oliguria -stable, renal US noted - follow Dr Zamora recommendations, 24 hour urine protein collection pending , monitor urine output 4. Hyperkalemia., resolved. 5. Acute diastolic ongestive heart failure. - lasix prn per cards - Dr Peralta cardio 6. Atrial fibrillation. - off eliquis for now, at risk for cva 7. Pulmonary hypertension. - off sildanefil 8. Morbid obesity: diet and excercise when medically stable 9. Chronic obstructive pulmonary disease. continue nebulizer 10. presumed MINA bipap, may benefit from Trillogy vent as outpatient as has not had a formal sleep study 11. UTI Ecoli ESBL with sepsis: antibioitics per ID,finished course of Erthapenam 12. morbid obesity: diet and weight loss encouraged 13. DJD: will need pt/ot, home health once dc, will order large wheel chair, hospital bed for home use 14. hypotension: improved 15. VERONICA: 24 hour urine ordered, appreciate nephrology input PT/OT when clinically more stable improving condition will hold dc planning until more stable, trach on Tuesday Subjective Date patient seen: Sep 17, 2016 Allergies: Coded Allergies: AMOXICILLIN (Verified Allergy, Mild, RASH, 12/25/09) MORPHINE (Unverified Allergy, Unknown, 09/06/16) PENICILLINS (Unverified Allergy, Unknown, 04/06/16) Subjective The patient was seen and examined at bedside and all new and available data was reviewed in the patients chart. I agree with the above findings, impression and plan. (Patient seen earlier today. Signature stamp does not reflect patient encounter time.). -Manny Nolan MD Objective Last 24 Hour Vital Signs Date Time Temp Pulse Resp B/P Pulse Ox O2 Delivery O2 Flow Rate FiO2 09/17/16 19:23 Bi-pap 09/17/16 19:23 95 Bi-pap 09/17/16 16:00 78 09/17/16 16:00 97.7 78 22 118/69 96 Bi-pap 6.0 09/17/16 16:00 6.0 09/17/16 12:00 6.0 09/17/16 12:00 71 09/17/16 12:00 96.1 80 24 99/59 96 Bi-pap 6.0 09/17/16 08:05 6.0 09/17/16 08:00 80 09/17/16 07:56 97.5 75 21 100/63 98 Bi-pap 6.0 09/17/16 07:20 Bi-pap 09/17/16 07:19 95 Bi-pap 09/17/16 07:15 78 17 95 Facial 8.0 09/17/16 05:29 77 18 93 Facial 8.0 09/17/16 04:00 85 09/17/16 04:00 97.9 88 21 125/79 96 Bi-pap 6.0 09/17/16 04:00 6.0 09/17/16 03:19 80 14 92 Facial 8.0 09/17/16 01:30 83 26 94 Facial 8.0 09/17/16 00:00 6.0 09/17/16 00:00 92 09/17/16 00:00 98.1 93 20 104/60 97 Bi-pap 6.0 09/16/16 23:31 97 24 90 Facial 8.0 09/16/16 21:12 83 30 91 Facial 8.0 09/16/16 20:00 6.0 09/16/16 20:00 97.8 88 20 111/68 97 Bi-pap 6.0 09/16/16 20:00 90 Intake and Output 09/16/16 09/17/16 19:00 07:00 Intake Total 55 ml Output Total 290 ml 15 ml Balance -235 ml -15 ml IV Total 55 ml Output Urine Total 290 ml 15 ml # Bowel Movements 1 Laboratory Tests 09/17/16 04:10: White Blood Count 5.1, Red Blood Count 3.01L, Hemoglobin 8.8L, Hematocrit 28.6L , Mean Corpuscular Volume 95, Mean Corpuscular Hemoglobin 29.1, Mean Corpuscular Hemoglobin Concent 30.7L, Red Cell Distribution Width 14.7, Platelet Count 161, Mean Platelet Volume 6.5, Neutrophils (%) (Auto) 69.0, Lymphocytes (%) (Auto) 19.0L, Monocytes (%) (Auto) 8.5, Eosinophils (%) (Auto) 2.2, Basophils (%) (Auto) 1.2, Sodium Level 141, Potassium Level 4.8, Chloride Level 94L, Carbon Dioxide Level 40H, Anion Gap 7, Blood Urea Nitrogen 64H, Creatinine 3.2H, Estimat Glomerular Filtration Rate , Glucose Level 138H, Uric Acid 8.9H, Calcium Level 8.7, Phosphorus Level 4.5, Magnesium Level 2.1, Total Bilirubin 0.3, Aspartate Amino Transf (AST/SGOT) 10, Alanine Aminotransferase ( ALT/SGPT) 5, Alkaline Phosphatase 53, Pro-B-Type Natriuretic Peptide 94235P, Total Protein 6.9, Albumin 3.2L, Globulin 3.7, Albumin/Globulin Ratio 0.8L 09/17/16 11:00: Creatinine 3.2H, Estimat Glomerular Filtration Rate , Urine Collection Time 24, Urine Total Volume 500, Urine Creatinine 161, Urine Creatinine 24 Hour 805, Patient Height Inches (Creat Clear) 64, Patient Weight Pounds (Creat Clear) 339 , Creatinine Clearance 12L, Urine Total Protein mg/dL 81, Urine Total Protein 24 Hour 405.0H Height (Feet): 5 Height (Inches): 4.00 Weight (Pounds): 339 General Appearance: WD/WN, lethargic, morbidly obese EENT: PERRL/EOMI, pharynx normal Neck: non-tender, supple Cardiovascular: normal rate, regular rhythm, no gallop/murmur, no JVD Respiratory/Chest: decreased breath sounds Abdomen: non tender, soft, no mass Extremities: swelling Edema: no edema noted Arm (L), no edema noted Arm (R), 2+ Leg (L), 2+ Leg (R), 2+ Pedal (L), 2+ Pedal (R), 2+ Generalized Edema: moderate edema 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
[2016-09-17 20:00] VITALS: BP 112/57
[2016-09-17] MEDS: Epogen (for ESRD on dialysis) SUBQ SCH (21:21)
[2016-09-18] VITALS: BP 123/63
--- NOTE | 2016-09-18 02:00 | Progress Note ---
DATE: 09/17/2016 SUBJECTIVE: The patient was sitting in bed, in no acute distress. Calm and cooperative with the examination. MENTAL STATUS EXAMINATION: The patient is alert and oriented times self, place, and situation. Mood is neutral. Affect is flat. Congruent with mood. Thought process is linear. Thought content, no suicidal or homicidal ideations. ASSESSMENT: Stable. PLAN: The patient will be continued on current medication. No medication changes. We will continue to follow and readjust the medications. Eda Pena M.D. DR: Jose JOB#: [id number] CC:
[2016-09-18 04:00] VITALS: BP 111/61
[2016-09-18 04:22] LABS: BASOPHILS % (AUTO) 1.5 % (0.0-2.0); EOSINOPHILS % (AUTO) 3.2 % (0.0-3.0); LYMPHOCYTES % (AUTO) 20.1 % (20.0-45.0); MEAN CORPUSCULAR HEMOGLOBIN 29.3 PG (27.0-31.0); MEAN CORPUSCULAR HGB CONC 30.6 G/DL (32.0-36.0); MEAN CORPUSCULAR VOLUME 96 FL (80-99); MEAN PLATELET VOLUME 6.2 FL (6.5-10.1); MONOCYTES % (AUTO) 9.5 % (1.0-10.0); NEUTROPHILS % (AUTO) 65.7 % (45.0-75.0); PLATELET COUNT 161 K/UL (150-450); RED BLOOD COUNT 3.06 M/UL (4.20-5.40); RED CELL DISTRIBUTION WIDTH 14.4 % (11.6-14.8); WHITE BLOOD COUNT 4.8 K/UL (4.8-10.8)
[2016-09-18 04:36] LABS: ALANINE AMINOTRANSFERASE 5 U/L (3-33); ALBUMIN/GLOBULIN RATIO 0.8 (1.0-2.7); ANION GAP 8 (5-15); ASPARTATE AMINO TRANSFERASE 10 U/L (5-40); CALCIUM 8.8 mg/dL (8.6-10.2); CARBON DIOXIDE 39 mEQ/L (20-30); CHLORIDE 95 mEQ/L (98-107); CREATININE 3.2 mg/dL (0.5-0.9); HEMOLYSIS 7; POTASSIUM 4.4 mEQ/L (3.4-4.9); SODIUM 142 mEQ/L (135-145); TOTAL PROTEIN 6.9 g/dL (6.6-8.7)
[2016-09-18 08:45] VITALS: BP 111/70
[2016-09-18] MEDS: Ertapenem 0.5 GM in NS 55 ML IV SCH (09:51)
[2016-09-18] MEDS: Nystatin Powder 100,000 units/gm 15gm TOPIC SCH ×3 (09:53→18:45)
[2016-09-18] MEDS: Miralax 17gm pkt ORAL SCH (09:53)
[2016-09-18] MEDS: Heparin 5000 units/ml inj SUBQ SCH ×2 (09:55→20:49)
[2016-09-18] MEDS ORDERED: NS 275ml ONE (10:45)
--- NOTE | 2016-09-18 10:47 | General Progress Note ---
Assessment/Plan Status: unchanged Status Narrative Cr 3.2 Assessment/Plan CKD- and acute renal failure Acute respiratory failure High K Obese COPD , rising Co2 CHF, Diastolic MINA UTI Anemia GI Bleed, GI bleeding At Fib Pulm HTN Low B12 Plan; 24 h Urine CrCl and Protein- ordered BIPAP- pulm support add Renvela Stop Sildenifil Optimize cardiac status- Monitor renal parameters and lytes- Avoid nephrotoxics B12 SQ- PO Folate due for trach Subjective ROS Limited/Unobtainable: No Constitutional: Reports: malaise Allergies: Coded Allergies: AMOXICILLIN (Verified Allergy, Mild, RASH, 12/25/09) MORPHINE (Unverified Allergy, Unknown, 09/06/16) PENICILLINS (Unverified Allergy, Unknown, 04/06/16) Objective Last 24 Hour Vital Signs Date Time Temp Pulse Resp B/P Pulse Ox O2 Delivery O2 Flow Rate FiO2 09/18/16 08:45 97.3 72 21 111/70 98 Bi-pap 6.0 09/18/16 08:00 6.0 09/18/16 08:00 71 09/18/16 07:31 97 Bi-pap 09/18/16 07:31 Bi-pap 09/18/16 04:15 71 09/18/16 04:00 97.8 73 22 111/61 99 Bi-pap 6.0 09/18/16 04:00 6.0 09/18/16 00:00 97.2 77 22 123/63 99 Bi-pap 6.0 09/18/16 00:00 6.0 09/17/16 23:36 74 09/17/16 20:00 97.2 76 22 112/57 95 Bi-pap 6.0 09/17/16 20:00 6.0 09/17/16 19:30 79 09/17/16 19:23 Bi-pap 09/17/16 19:23 95 Bi-pap 09/17/16 16:00 78 09/17/16 16:00 97.7 78 22 118/69 96 Bi-pap 6.0 09/17/16 16:00 6.0 09/17/16 12:00 6.0 09/17/16 12:00 71 09/17/16 12:00 96.1 80 24 99/59 96 Bi-pap 6.0 Intake and Output 09/17/16 09/18/16 19:00 07:00 Intake Total 55 ml 250 ml Output Total 210 ml Balance -155 ml 250 ml Intake Oral 250 ml IV Total 55 ml Output Urine Total 210 ml Laboratory Tests 09/17/16 11:00: Urine Collection Time 24, Urine Total Volume 500, Urine Creatinine 161, Urine Creatinine 24 Hour 805, Patient Height Inches (Creat Clear) 64, Patient Weight Pounds (Creat Clear) 339, Creatinine Clearance 12L, Urine Total Protein mg/dL 81 , Urine Total Protein 24 Hour 405.0H, Creatinine 3.2H, Estimat Glomerular Filtration Rate 09/18/16 03:20: Creatinine 3.2H, Estimat Glomerular Filtration Rate , White Blood Count 4.8, Red Blood Count 3.06L, Hemoglobin 9.0L, Hematocrit 29.3L, Mean Corpuscular Volume 96, Mean Corpuscular Hemoglobin 29.3, Mean Corpuscular Hemoglobin Concent 30.6L, Red Cell Distribution Width 14.4, Platelet Count 161, Mean Platelet Volume 6.2L, Neutrophils (%) (Auto) 65.7, Lymphocytes (%) (Auto) 20.1, Monocytes (%) (Auto) 9.5, Eosinophils (%) (Auto) 3.2H, Basophils (%) (Auto) 1.5 , Sodium Level 142, Potassium Level 4.4, Chloride Level 95L, Carbon Dioxide Level 39H, Anion Gap 8, Blood Urea Nitrogen 68H, Glucose Level 147H, Calcium Level 8.8, Total Bilirubin 0.2, Aspartate Amino Transf (AST/SGOT) 10, Alanine Aminotransferase (ALT/SGPT) 5, Alkaline Phosphatase 53, Pro-B-Type Natriuretic Peptide 9518H, Total Protein 6.9, Albumin 3.1L, Globulin 3.8, Albumin/Globulin Ratio 0.8L 09/18/16 04:00: Urine Eosinophils None seen Height (Feet): 5 Height (Inches): 4.00 Weight (Pounds): 340 General Appearance: no apparent distress EENT: other - BIPAP Respiratory/Chest: decreased breath sounds Abdomen: soft, distended Objective no change COURTNEY LOPEZ Sep 18, 2016 10:47
--- NOTE | 2016-09-18 11:08 | General Progress Note ---
Assessment/Plan Assessment/Plan Assessment - UGIB - resolved - Anemia-Last EGD/Colon 05/2014 (duodenal AVM- cauterized, mild diverticulosis) - Chronic hypercapnic resp failure - awaiting trach - Renal failure - Morbid obesity - CHF - atrial fibrillation Recommendations - await trach - Rx empirically with H2B - Monitor labs - Elevate HOB - PO as tolerated Subjective Allergies: Coded Allergies: AMOXICILLIN (Verified Allergy, Mild, RASH, 12/25/09) MORPHINE (Unverified Allergy, Unknown, 09/06/16) PENICILLINS (Unverified Allergy, Unknown, 04/06/16) Subjective no new complaints tracheostomy planned for next week d/w patient re possibility of needing PEG as well eating OK now Objective Last 24 Hour Vital Signs Date Time Temp Pulse Resp B/P Pulse Ox O2 Delivery O2 Flow Rate FiO2 09/18/16 08:45 97.3 72 21 111/70 98 Bi-pap 6.0 09/18/16 08:00 6.0 09/18/16 08:00 71 09/18/16 07:31 97 Bi-pap 09/18/16 07:31 Bi-pap 09/18/16 04:15 71 09/18/16 04:00 97.8 73 22 111/61 99 Bi-pap 6.0 09/18/16 04:00 6.0 09/18/16 00:00 97.2 77 22 123/63 99 Bi-pap 6.0 09/18/16 00:00 6.0 09/17/16 23:36 74 09/17/16 20:00 97.2 76 22 112/57 95 Bi-pap 6.0 09/17/16 20:00 6.0 09/17/16 19:30 79 09/17/16 19:23 Bi-pap 09/17/16 19:23 95 Bi-pap 09/17/16 16:00 78 09/17/16 16:00 97.7 78 22 118/69 96 Bi-pap 6.0 09/17/16 16:00 6.0 09/17/16 12:00 6.0 09/17/16 12:00 71 09/17/16 12:00 96.1 80 24 99/59 96 Bi-pap 6.0 Intake and Output 09/17/16 09/18/16 19:00 07:00 Intake Total 55 ml 250 ml Output Total 210 ml Balance -155 ml 250 ml Intake Oral 250 ml IV Total 55 ml Output Urine Total 210 ml Laboratory Tests 09/18/16 03:20: White Blood Count 4.8, Red Blood Count 3.06L, Hemoglobin 9.0L, Hematocrit 29.3L , Mean Corpuscular Volume 96, Mean Corpuscular Hemoglobin 29.3, Mean Corpuscular Hemoglobin Concent 30.6L, Red Cell Distribution Width 14.4, Platelet Count 161, Mean Platelet Volume 6.2L, Neutrophils (%) (Auto) 65.7, Lymphocytes (%) (Auto) 20.1, Monocytes (%) (Auto) 9.5, Eosinophils (%) (Auto) 3.2H, Basophils (%) (Auto) 1.5, Sodium Level 142, Potassium Level 4.4, Chloride Level 95L, Carbon Dioxide Level 39H, Anion Gap 8, Blood Urea Nitrogen 68H, Creatinine 3.2H, Estimat Glomerular Filtration Rate , Glucose Level 147H, Calcium Level 8.8, Total Bilirubin 0.2, Aspartate Amino Transf (AST/SGOT) 10, Alanine Aminotransferase (ALT/SGPT) 5, Alkaline Phosphatase 53, Pro-B-Type Natriuretic Peptide 9518H, Total Protein 6.9, Albumin 3.1L, Globulin 3.8, Albumin/Globulin Ratio 0.8L 09/18/16 04:00: Urine Eosinophils None seen Height (Feet): 5 Height (Inches): 4.00 Weight (Pounds): 340 Objective Obese WW NCAT supple Coarse BS, ronchi RR Abd soft NT ND, obese (+) edema Neuro - responsive BRETT DALE Sep 18, 2016 11:08
[2016-09-18 11:54] VITALS: BP 120/58
--- NOTE | 2016-09-18 15:02 | General Progress Note ---
Assessment/Plan Assessment/Plan 1. Acute respiratory failure requiring BiPAP with respiratory acidosis --on continuous Bipap hs and prn, patient now on Trillogy vent -patient now out of ICU on Nasal canula -patient and friend Sean are now in agreement of trach for continuous Bipap, scheduled for Tuesday 2. Acute gastrointestinal bleed with acute anemia requiring blood transfusion. -s/p BT 4 units, H/H stable, no more episodes of hematemesis -diet was advanced by GI currently on soft diet tolerating diet - follow Dr Rodriguez recommendations, UGI is limited study no ulcers seen, has esophageal dysmotility -continue PPI -not safe for EGD at this time 3. Acute kidney injury on chronic kidney disease. now with oliguria -stable, renal US noted - follow Dr Zamora recommendations, 24 hour urine protein collection pending , monitor urine output 4. Hyperkalemia., resolved. 5. Acute diastolic ongestive heart failure. - lasix prn per cards - Dr Peralta cardio 6. Atrial fibrillation. - off eliquis for now, at risk for cva 7. Pulmonary hypertension. - off sildanefil 8. Morbid obesity: diet and excercise when medically stable 9. Chronic obstructive pulmonary disease. continue nebulizer 10. presumed MINA bipap, may benefit from Trillogy vent as outpatient as has not had a formal sleep study 11. UTI Ecoli ESBL with sepsis: antibioitics per ID,finished course of Erthapenam 12. morbid obesity: diet and weight loss encouraged 13. DJD: will need pt/ot, home health once dc, will order large wheel chair, hospital bed for home use 14. hypotension: improved 15. VERONICA: 24 hour urine ordered, appreciate nephrology input PT/OT when clinically more stable patient prefers to go to [facility]hab [facility], will discuss with social economist regarding options improving condition will hold dc planning until more stable, trach on Tuesday Subjective Date patient seen: Sep 18, 2016 Allergies: Coded Allergies: AMOXICILLIN (Verified Allergy, Mild, RASH, 12/25/09) MORPHINE (Unverified Allergy, Unknown, 09/06/16) PENICILLINS (Unverified Allergy, Unknown, 04/06/16) Subjective The patient was seen and examined at bedside and all new and available data was reviewed in the patients chart. I agree with the above findings, impression and plan. (Patient seen earlier today. Signature stamp does not reflect patient encounter time.). -Manny Nolan MD Objective Last 24 Hour Vital Signs Date Time Temp Pulse Resp B/P Pulse Ox O2 Delivery O2 Flow Rate FiO2 09/18/16 12:00 82 09/18/16 11:54 97.5 83 24 120/58 97 Bi-pap 6.0 09/18/16 08:45 97.3 72 21 111/70 98 Bi-pap 6.0 09/18/16 08:00 6.0 09/18/16 08:00 71 09/18/16 07:31 97 Bi-pap 09/18/16 07:31 Bi-pap 09/18/16 04:15 71 09/18/16 04:00 97.8 73 22 111/61 99 Bi-pap 6.0 09/18/16 04:00 6.0 09/18/16 00:00 97.2 77 22 123/63 99 Bi-pap 6.0 09/18/16 00:00 6.0 09/17/16 23:36 74 09/17/16 20:00 97.2 76 22 112/57 95 Bi-pap 6.0 09/17/16 20:00 6.0 09/17/16 19:30 79 09/17/16 19:23 Bi-pap 09/17/16 19:23 95 Bi-pap 09/17/16 16:00 78 09/17/16 16:00 97.7 78 22 118/69 96 Bi-pap 6.0 09/17/16 16:00 6.0 Intake and Output 09/17/16 09/18/16 19:00 07:00 Intake Total 55 ml 250 ml Output Total 210 ml Balance -155 ml 250 ml Intake Oral 250 ml IV Total 55 ml Output Urine Total 210 ml Laboratory Tests 09/18/16 03:20: White Blood Count 4.8, Red Blood Count 3.06L, Hemoglobin 9.0L, Hematocrit 29.3L , Mean Corpuscular Volume 96, Mean Corpuscular Hemoglobin 29.3, Mean Corpuscular Hemoglobin Concent 30.6L, Red Cell Distribution Width 14.4, Platelet Count 161, Mean Platelet Volume 6.2L, Neutrophils (%) (Auto) 65.7, Lymphocytes (%) (Auto) 20.1, Monocytes (%) (Auto) 9.5, Eosinophils (%) (Auto) 3.2H, Basophils (%) (Auto) 1.5, Sodium Level 142, Potassium Level 4.4, Chloride Level 95L, Carbon Dioxide Level 39H, Anion Gap 8, Blood Urea Nitrogen 68H, Creatinine 3.2H, Estimat Glomerular Filtration Rate , Glucose Level 147H, Calcium Level 8.8, Total Bilirubin 0.2, Aspartate Amino Transf (AST/SGOT) 10, Alanine Aminotransferase (ALT/SGPT) 5, Alkaline Phosphatase 53, Pro-B-Type Natriuretic Peptide 9518H, Total Protein 6.9, Albumin 3.1L, Globulin 3.8, Albumin/Globulin Ratio 0.8L 09/18/16 04:00: Urine Eosinophils None seen Height (Feet): 5 Height (Inches): 4.00 Weight (Pounds): 340 General Appearance: no apparent distress, alert EENT: PERRL/EOMI, pharynx normal Neck: non-tender, supple Cardiovascular: normal rate, regular rhythm, no gallop/murmur, no JVD Respiratory/Chest: lungs clear Abdomen: non tender, soft, no mass Extremities: non-tender, normal inspection, no calf tenderness Edema: no edema noted Arm (L), no edema noted Arm (R), 2+ Leg (L), 2+ Leg (R), 2+ Pedal (L), 2+ Pedal (R), 2+ Generalized Edema: moderate edema Neurologic: curriculum assistant principal II-XII grossly normal, oriented x 3, responsive Lymphatic: normal anterior cervical (L), normal anterior cervical (R), normal axillary (L), normal axillary (R), normal inguinal (L), normal inguinal (R), normal other, normal posterior cervical (L), normal posterior cervical (R), normal submandibular (L), normal submandibular (R), normal supraclavicular (L), normal supraclavicular (R) Manny Nolan MD Sep 18, 2016 15:02
[2016-09-18 15:59] VITALS: BP 116/62
[2016-09-18 20:00] VITALS: BP 112/65
[2016-09-19] VITALS: BP 125/74
[2016-09-19 04:00] VITALS: BP 143/75
[2016-09-19 07:56] VITALS: BP 139/63
[2016-09-19] MEDS: Miralax 17gm pkt ORAL SCH (08:31)
[2016-09-19] MEDS: Heparin 5000 units/ml inj SUBQ SCH ×2 (08:33→22:27)
[2016-09-19] MEDS: Nystatin Powder 100,000 units/gm 15gm TOPIC SCH ×3 (08:33→17:16)
--- NOTE | 2016-09-19 08:56 | General Progress Note ---
Progress Note Progress Note pt with chronic respiratory failure, on BIPAP. scheduled for tracheostomy tomorrow Labs Test 09/17/16 11:00 09/18/16 03:20 09/18/16 04:00 Urine Collection Time 24 HRS Urine Total Volume 500 ML Urine Creatinine 161 mg/dL Urine Creatinine 24 Hour 805 mg/24hr (740-1570) Patient Height Inches (Creat Clear) 64 INCHES Patient Weight Pounds (Creat Clear) 339 LBS Creatinine Clearance 12 mL/min (71-151) Urine Total Protein mg/dL 81 mg/dL Urine Total Protein 24 Hour 405.0 mg/24hr (< 150) Creatinine 3.2 mg/dL (0.5-0.9) 3.2 mg/dL (0.5-0.9) Estimat Glomerular Filtration Rate mL/min (>60) mL/min (>60) White Blood Count 4.8 K/UL (4.8-10.8) Red Blood Count 3.06 M/UL (4.20-5.40) Hemoglobin 9.0 G/DL (12.0-16.0) Hematocrit 29.3 % (37.0-47.0) Mean Corpuscular Volume 96 FL (80-99) Mean Corpuscular Hemoglobin 29.3 PG (27.0-31.0) Mean Corpuscular Hemoglobin Concent 30.6 G/DL (32.0-36.0) Red Cell Distribution Width 14.4 % (11.6-14.8) Platelet Count 161 K/UL (150-450) Mean Platelet Volume 6.2 FL (6.5-10.1) Neutrophils (%) (Auto) 65.7 % (45.0-75.0) Lymphocytes (%) (Auto) 20.1 % (20.0-45.0) Monocytes (%) (Auto) 9.5 % (1.0-10.0) Eosinophils (%) (Auto) 3.2 % (0.0-3.0) Basophils (%) (Auto) 1.5 % (0.0-2.0) Sodium Level 142 mEQ/L (135-145) Potassium Level 4.4 mEQ/L (3.4-4.9) Chloride Level 95 mEQ/L (98-107) Carbon Dioxide Level 39 mEQ/L (20-30) Anion Gap 8 (5-15) Blood Urea Nitrogen 68 mg/dL (7-23) Glucose Level 147 mg/dL (74-106) Calcium Level 8.8 mg/dL (8.6-10.2) Total Bilirubin 0.2 mg/dL (0.0-1.2) Aspartate Amino Transf (AST/SGOT) 10 U/L (5-40) Alanine Aminotransferase (ALT/SGPT) 5 U/L (3-33) Alkaline Phosphatase 53 U/L (35-104) Pro-B-Type Natriuretic Peptide 9518 pg/mL (0-125) Total Protein 6.9 g/dL (6.6-8.7) Albumin 3.1 g/dL (3.5-5.2) Globulin 3.8 g/dL Albumin/Globulin Ratio 0.8 (1.0-2.7) Urine Eosinophils None seen for trach in AM JAMES ROSE Sep 19, 2016 08:56
--- NOTE | 2016-09-19 10:01 | Pulmonology Progress Note ---
Assessment/Plan Problems: (1) Acute respiratory failure (2) CKD (chronic kidney disease) (3) Hyperkalemia (4) COPD (chronic obstructive pulmonary disease) (5) Anemia (6) MINA (obstructive sleep apnea) Assessment/Plan no new complains h/h stable on bipap again all meds and notes reviewed pt needs continuous BIPA, I suggested trach to the patient and she agreed will ask surgeon to see her. pt agreed with tracheostomy on Tuesday all notes and labs, meds reviewed Subjective Interval Events: late note for 09/18, no new complains, still needs bipap Allergies: Coded Allergies: AMOXICILLIN (Verified Allergy, Mild, RASH, 12/25/09) MORPHINE (Unverified Allergy, Unknown, 09/06/16) PENICILLINS (Unverified Allergy, Unknown, 04/06/16) Objective Last 24 Hour Vital Signs Date Time Temp Pulse Resp B/P Pulse Ox O2 Delivery O2 Flow Rate FiO2 09/19/16 08:51 78 09/19/16 08:00 15.0 09/19/16 07:56 97.8 80 18 139/63 100 Bi-pap 09/19/16 07:06 100 Bi-pap 12.0 55 09/19/16 07:06 Bi-pap 12.0 55 09/19/16 04:00 96.8 73 18 143/75 97 Bi-pap 6.0 09/19/16 04:00 15.0 09/19/16 04:00 78 09/19/16 00:00 15.0 09/19/16 00:00 79 09/19/16 00:00 96.8 73 20 125/74 100 Bi-pap 6.0 09/18/16 20:00 70 09/18/16 20:00 15.0 09/18/16 20:00 97.7 80 19 112/65 100 Bi-pap 6.0 09/18/16 19:22 Bi-pap 09/18/16 19:22 100 Bi-pap 09/18/16 16:00 73 09/18/16 16:00 15.0 09/18/16 15:59 97.7 76 22 116/62 100 Bi-pap 10.0 09/18/16 12:00 15.0 09/18/16 12:00 82 09/18/16 11:54 97.5 83 24 120/58 97 Bi-pap 6.0 Intake and Output 09/18/16 09/19/16 19:00 07:00 Intake Total 320 ml 237 ml Output Total 300 ml 250 ml Balance 20 ml -13 ml Intake Oral 320 ml 237 ml Output Urine Total 300 ml 250 ml # Bowel Movements 1 Objective General Appearance: WD/WN HEENT: normocephalic, atraumatic Respiratory/Chest: chest wall non-tender, lungs clear Breasts: no masses Abdomen: normal bowel sounds, soft, non tender Genitourinary: normal external genitalia Extremities: no cyanosis Skin: no rash Current Medications Medications (Trade) Dose Ordered Sig/Kalyn Route PRN Reason Start Time Stop Time Status Last Admin Dose Admin Acetaminophen (Tylenol) 650 mg Q4H PRN ORAL T>100.5 09/13/16 18:30 10/13/16 18:29 09/15/16 15:49 Dextrose (Dextrose 50%) STAT PRN IV Hypoglycemia 09/13/16 18:15 10/13/16 18:14 Epoetin Santos (Procrit (for ESRD on dialysis)) 7,000 units TUE-TUE-TUE SUBQ 09/15/16 21:00 10/15/16 20:59 09/17/16 21:21 Folic Acid (Folate) 2 mg DAILY ORAL 09/14/16 09:00 10/14/16 08:59 09/19/16 08:31 Heparin Sodium (Porcine) (Heparin 5000 units/ml) 5,000 units EVERY 12 HOURS SUBQ 09/13/16 21:00 10/13/16 20:59 09/19/16 08:33 Nystatin (Nystop Powder) 1 applic THREE TIMES A DAY TOPIC 09/13/16 18:00 10/13/16 17:59 09/19/16 08:33 Ondansetron HCl (Zofran) 4 mg Q6H PRN IVP Nausea & Vomiting 09/13/16 18:30 10/13/16 18:29 Pantoprazole (Protonix) 40 mg EVERY 12 HOURS ORAL 09/14/16 21:00 10/14/16 20:59 09/19/16 08:31 Polyethylene Glycol (Miralax) 17 gm DAILY ORAL 09/14/16 09:00 10/14/16 08:59 09/19/16 08:31 Polyethylene Glycol (Miralax) 17 gm DAILYPRN PRN ORAL Constipation 09/13/16 18:30 10/13/16 18:29 09/15/16 01:49 Pravastatin Sodium (Pravachol) 20 mg BEDTIME ORAL 09/13/16 21:00 10/13/16 20:59 09/18/16 20:47 Sevelamer Carbonate (Renvela) 1,600 mg THREE TIMES A DAY ORAL 09/15/16 13:00 10/15/16 12:59 09/19/16 08:31 Temazepam (Restoril) 15 mg HSPRN PRN ORAL Insomnia 09/13/16 21:00 09/20/16 20:59 ARASH MIRANDA Sep 19, 2016 10:01
--- NOTE | 2016-09-19 10:02 | Pulmonology Progress Note ---
Assessment/Plan Problems: (1) Acute respiratory failure (2) CKD (chronic kidney disease) (3) Hyperkalemia (4) COPD (chronic obstructive pulmonary disease) (5) Anemia (6) MINA (obstructive sleep apnea) Assessment/Plan no new complains h/h stable on bipap again all meds and notes reviewed I suggested trach to the patient and she agreed will ask surgeon to see her. pt agreed with tracheostomy on Tuesday repeat labs in am, with CXR and BNP all notes and labs, meds reviewed Subjective ROS Limited/Unobtainable: No Constitutional: Reports: no symptoms Respiratory: Reports: no symptoms Allergies: Coded Allergies: AMOXICILLIN (Verified Allergy, Mild, RASH, 12/25/09) MORPHINE (Unverified Allergy, Unknown, 09/06/16) PENICILLINS (Unverified Allergy, Unknown, 04/06/16) Objective Last 24 Hour Vital Signs Date Time Temp Pulse Resp B/P Pulse Ox O2 Delivery O2 Flow Rate FiO2 09/19/16 08:51 78 09/19/16 08:00 15.0 09/19/16 07:56 97.8 80 18 139/63 100 Bi-pap 09/19/16 07:06 100 Bi-pap 12.0 55 09/19/16 07:06 Bi-pap 12.0 55 09/19/16 04:00 96.8 73 18 143/75 97 Bi-pap 6.0 09/19/16 04:00 15.0 09/19/16 04:00 78 09/19/16 00:00 15.0 09/19/16 00:00 79 09/19/16 00:00 96.8 73 20 125/74 100 Bi-pap 6.0 09/18/16 20:00 70 09/18/16 20:00 15.0 09/18/16 20:00 97.7 80 19 112/65 100 Bi-pap 6.0 09/18/16 19:22 Bi-pap 09/18/16 19:22 100 Bi-pap 09/18/16 16:00 73 09/18/16 16:00 15.0 09/18/16 15:59 97.7 76 22 116/62 100 Bi-pap 10.0 09/18/16 12:00 15.0 09/18/16 12:00 82 09/18/16 11:54 97.5 83 24 120/58 97 Bi-pap 6.0 Intake and Output 09/18/16 09/19/16 19:00 07:00 Intake Total 320 ml 237 ml Output Total 300 ml 250 ml Balance 20 ml -13 ml Intake Oral 320 ml 237 ml Output Urine Total 300 ml 250 ml # Bowel Movements 1 Objective General Appearance: WD/WN HEENT: normocephalic, atraumatic Respiratory/Chest: chest wall non-tender, lungs clear Breasts: no masses Abdomen: normal bowel sounds, soft, non tender Genitourinary: normal external genitalia Extremities: no cyanosis Skin: no rash Current Medications Medications (Trade) Dose Ordered Sig/Kalyn Route PRN Reason Start Time Stop Time Status Last Admin Dose Admin Acetaminophen (Tylenol) 650 mg Q4H PRN ORAL T>100.5 09/13/16 18:30 10/13/16 18:29 09/15/16 15:49 Dextrose (Dextrose 50%) STAT PRN IV Hypoglycemia 09/13/16 18:15 10/13/16 18:14 Epoetin Santos (Procrit (for ESRD on dialysis)) 7,000 units MON-WED-TUE SUBQ 09/15/16 21:00 10/15/16 20:59 09/17/16 21:21 Folic Acid (Folate) 2 mg DAILY ORAL 09/14/16 09:00 10/14/16 08:59 09/19/16 08:31 Heparin Sodium (Porcine) (Heparin 5000 units/ml) 5,000 units EVERY 12 HOURS SUBQ 09/13/16 21:00 10/13/16 20:59 09/19/16 08:33 Nystatin (Nystop Powder) 1 applic THREE TIMES A DAY TOPIC 09/13/16 18:00 10/13/16 17:59 09/19/16 08:33 Ondansetron HCl (Zofran) 4 mg Q6H PRN IVP Nausea & Vomiting 09/13/16 18:30 10/13/16 18:29 Pantoprazole (Protonix) 40 mg EVERY 12 HOURS ORAL 09/14/16 21:00 10/14/16 20:59 09/19/16 08:31 Polyethylene Glycol (Miralax) 17 gm DAILY ORAL 09/14/16 09:00 10/14/16 08:59 09/19/16 08:31 Polyethylene Glycol (Miralax) 17 gm DAILYPRN PRN ORAL Constipation 09/13/16 18:30 10/13/16 18:29 09/15/16 01:49 Pravastatin Sodium (Pravachol) 20 mg BEDTIME ORAL 09/13/16 21:00 10/13/16 20:59 09/18/16 20:47 Sevelamer Carbonate (Renvela) 1,600 mg THREE TIMES A DAY ORAL 09/15/16 13:00 10/15/16 12:59 09/19/16 08:31 Temazepam (Restoril) 15 mg HSPRN PRN ORAL Insomnia 09/13/16 21:00 09/20/16 20:59 ARASH MIRANDA Sep 19, 2016 10:02
--- NOTE | 2016-09-19 10:33 | Infectious Diseases Prog Note ---
Assessment/Plan Assessment/Plan A: E. coli UTI GI bleeding Hypercapnic respiratory failure Acute renal failure, CKD Anemia Morbid obesity DM P: observe off antibiotic Subjective ROS Limited/Unobtainable: No Constitutional: Reports: no symptoms Respiratory: Reports: shortness of breath Gastrointestinal/Abdominal: Reports: no symptoms Genitourinary: Reports: no symptoms Allergies: Coded Allergies: AMOXICILLIN (Verified Allergy, Mild, RASH, 12/25/09) MORPHINE (Unverified Allergy, Unknown, 09/06/16) PENICILLINS (Unverified Allergy, Unknown, 04/06/16) Objective Vital Signs Last 24 Hour Vital Signs Date Time Temp Pulse Resp B/P Pulse Ox O2 Delivery O2 Flow Rate FiO2 09/19/16 08:51 78 09/19/16 08:00 15.0 09/19/16 07:56 97.8 80 18 139/63 100 Bi-pap 09/19/16 07:06 100 Bi-pap 12.0 55 09/19/16 07:06 Bi-pap 12.0 55 09/19/16 04:00 96.8 73 18 143/75 97 Bi-pap 6.0 09/19/16 04:00 15.0 09/19/16 04:00 78 09/19/16 00:00 15.0 09/19/16 00:00 79 09/19/16 00:00 96.8 73 20 125/74 100 Bi-pap 6.0 09/18/16 20:00 70 09/18/16 20:00 15.0 09/18/16 20:00 97.7 80 19 112/65 100 Bi-pap 6.0 09/18/16 19:22 Bi-pap 09/18/16 19:22 100 Bi-pap 09/18/16 16:00 73 09/18/16 16:00 15.0 09/18/16 15:59 97.7 76 22 116/62 100 Bi-pap 10.0 09/18/16 12:00 15.0 09/18/16 12:00 82 09/18/16 11:54 97.5 83 24 120/58 97 Bi-pap 6.0 Height (Feet): 5 Height (Inches): 4.00 Weight (Pounds): 341 General Appearance: no acute distress HEENT: other - on BIPAP Respiratory/Chest: decreased breath sounds Cardiovascular: normal rate Abdomen: soft, non tender Extremities: other - edema of legs Neurologic/Psychiatric: alert, oriented x 3, responsive Current Medications Medications (Trade) Dose Ordered Sig/Kalyn Route PRN Reason Start Time Stop Time Status Last Admin Dose Admin Acetaminophen (Tylenol) 650 mg Q4H PRN ORAL T>100.5 09/13/16 18:30 10/13/16 18:29 09/15/16 15:49 Dextrose (Dextrose 50%) STAT PRN IV Hypoglycemia 09/13/16 18:15 10/13/16 18:14 Epoetin Santos (Procrit (for ESRD on dialysis)) 7,000 units MON-WED-TUE SUBQ 09/15/16 21:00 10/15/16 20:59 09/17/16 21:21 Folic Acid (Folate) 2 mg DAILY ORAL 09/14/16 09:00 10/14/16 08:59 09/19/16 08:31 Heparin Sodium (Porcine) (Heparin 5000 units/ml) 5,000 units EVERY 12 HOURS SUBQ 09/13/16 21:00 10/13/16 20:59 09/19/16 08:33 Nystatin (Nystop Powder) 1 applic THREE TIMES A DAY TOPIC 09/13/16 18:00 10/13/16 17:59 09/19/16 08:33 Ondansetron HCl (Zofran) 4 mg Q6H PRN IVP Nausea & Vomiting 09/13/16 18:30 10/13/16 18:29 Pantoprazole (Protonix) 40 mg EVERY 12 HOURS ORAL 09/14/16 21:00 10/14/16 20:59 09/19/16 08:31 Polyethylene Glycol (Miralax) 17 gm DAILY ORAL 09/14/16 09:00 10/14/16 08:59 09/19/16 08:31 Polyethylene Glycol (Miralax) 17 gm DAILYPRN PRN ORAL Constipation 09/13/16 18:30 10/13/16 18:29 09/15/16 01:49 Pravastatin Sodium (Pravachol) 20 mg BEDTIME ORAL 09/13/16 21:00 10/13/16 20:59 09/18/16 20:47 Sevelamer Carbonate (Renvela) 1,600 mg THREE TIMES A DAY ORAL 09/15/16 13:00 10/15/16 12:59 09/19/16 08:31 Temazepam (Restoril) 15 mg HSPRN PRN ORAL Insomnia 09/13/16 21:00 09/20/16 20:59 CARY ESTES Sep 19, 2016 10:33
--- NOTE | 2016-09-19 10:44 | General Progress Note ---
Assessment/Plan Status: stable Assessment/Plan CKD- and acute renal failure Acute respiratory failure High K Obese COPD , rising Co2 CHF, Diastolic MINA UTI Anemia GI Bleed, GI bleeding At Fib Pulm HTN Low B12 Plan; no labs today- 24 h Urine CrCl and Protein- ordered ( CrCl 12) BIPAP- pulm support On Renvela Stop Sildenifil Optimize cardiac status- Monitor renal parameters and lytes- Avoid nephrotoxics B12 SQ- PO Folate due for trach in am Subjective ROS Limited/Unobtainable: No Constitutional: Reports: malaise Allergies: Coded Allergies: AMOXICILLIN (Verified Allergy, Mild, RASH, 12/25/09) MORPHINE (Unverified Allergy, Unknown, 09/06/16) PENICILLINS (Unverified Allergy, Unknown, 04/06/16) Objective Last 24 Hour Vital Signs Date Time Temp Pulse Resp B/P Pulse Ox O2 Delivery O2 Flow Rate FiO2 09/19/16 08:51 78 09/19/16 08:00 15.0 09/19/16 07:56 97.8 80 18 139/63 100 Bi-pap 09/19/16 07:06 100 Bi-pap 12.0 55 09/19/16 07:06 Bi-pap 12.0 55 09/19/16 04:00 96.8 73 18 143/75 97 Bi-pap 6.0 09/19/16 04:00 15.0 09/19/16 04:00 78 09/19/16 00:00 15.0 09/19/16 00:00 79 09/19/16 00:00 96.8 73 20 125/74 100 Bi-pap 6.0 09/18/16 20:00 70 09/18/16 20:00 15.0 09/18/16 20:00 97.7 80 19 112/65 100 Bi-pap 6.0 09/18/16 19:22 Bi-pap 09/18/16 19:22 100 Bi-pap 09/18/16 16:00 73 09/18/16 16:00 15.0 09/18/16 15:59 97.7 76 22 116/62 100 Bi-pap 10.0 09/18/16 12:00 15.0 09/18/16 12:00 82 09/18/16 11:54 97.5 83 24 120/58 97 Bi-pap 6.0 Intake and Output 09/18/16 09/19/16 19:00 07:00 Intake Total 320 ml 237 ml Output Total 300 ml 250 ml Balance 20 ml -13 ml Intake Oral 320 ml 237 ml Output Urine Total 300 ml 250 ml # Bowel Movements 1 Height (Feet): 5 Height (Inches): 4.00 Weight (Pounds): 341 EENT: other - on bipap Cardiovascular: normal rate Respiratory/Chest: decreased breath sounds Abdomen: other - obese Objective no change COURTNEY LOPEZ Sep 19, 2016 10:44
[2016-09-19 12:00] VITALS: BP 130/71
--- NOTE | 2016-09-19 15:50 | General Progress Note ---
Assessment/Plan Assessment/Plan 1. Acute respiratory failure requiring BiPAP with respiratory acidosis --on continuous Bipap hs and prn, patient now on Trillogy vent -patient now out of ICU on Nasal canula -patient is having second thoughts about trach, would like to think about it 2. Acute gastrointestinal bleed with acute anemia requiring blood transfusion. -s/p BT 4 units, H/H stable, no more episodes of hematemesis -diet was advanced by GI currently on soft diet tolerating diet - follow Dr Rodriguez recommendations, UGI is limited study no ulcers seen, has esophageal dysmotility -continue PPI -not safe for EGD at this time 3. Acute kidney injury on chronic kidney disease. now with oliguria -stable, renal US noted - follow Dr Zamora recommendations, 24 hour urine protein collection pending , monitor urine output 4. Hyperkalemia., resolved. 5. Acute diastolic ongestive heart failure. - lasix prn per cards - Dr Peralta cardio 6. Atrial fibrillation. - off eliquis for now, at risk for cva 7. Pulmonary hypertension. - off sildanefil 8. Morbid obesity: diet and excercise when medically stable 9. Chronic obstructive pulmonary disease. continue nebulizer 10. presumed MINA bipap, may benefit from Trillogy vent as outpatient as has not had a formal sleep study 11. UTI Ecoli ESBL with sepsis: antibioitics per ID,finished course of Erthapenam 12. morbid obesity: diet and weight loss encouraged 13. DJD: will need pt/ot, home health once dc, will order large wheel chair, hospital bed for home use 14. hypotension: improved 15. VERONICA: 24 hour urine ordered, appreciate nephrology input PT/OT when clinically more stable patient prefers to go [facility], will discuss with social worker school regarding options improving condition will discuss with pulmonary regarding alternative if patient doesn' t want trach Subjective Date patient seen: Sep 19, 2016 Allergies: Coded Allergies: AMOXICILLIN (Verified Allergy, Mild, RASH, 12/25/09) MORPHINE (Unverified Allergy, Unknown, 09/06/16) PENICILLINS (Unverified Allergy, Unknown, 04/06/16) Subjective The patient was seen and examined at bedside and all new and available data was reviewed in the patients chart. I agree with the above findings, impression and plan. (Patient seen earlier today. Signature stamp does not reflect patient encounter time.). -Manny Nolan MD Objective Last 24 Hour Vital Signs Date Time Temp Pulse Resp B/P Pulse Ox O2 Delivery O2 Flow Rate FiO2 09/19/16 12:00 97.5 85 18 130/71 96 Bi-pap 09/19/16 12:00 15.0 09/19/16 12:00 78 09/19/16 08:51 78 09/19/16 08:00 15.0 09/19/16 07:56 97.8 80 18 139/63 100 Bi-pap 09/19/16 07:06 100 Bi-pap 12.0 55 09/19/16 07:06 Bi-pap 12.0 55 09/19/16 04:00 96.8 73 18 143/75 97 Bi-pap 6.0 09/19/16 04:00 15.0 09/19/16 04:00 78 09/19/16 00:00 15.0 09/19/16 00:00 79 09/19/16 00:00 96.8 73 20 125/74 100 Bi-pap 6.0 09/18/16 20:00 70 09/18/16 20:00 15.0 09/18/16 20:00 97.7 80 19 112/65 100 Bi-pap 6.0 09/18/16 19:22 Bi-pap 09/18/16 19:22 100 Bi-pap 09/18/16 16:00 73 09/18/16 16:00 15.0 09/18/16 15:59 97.7 76 22 116/62 100 Bi-pap 10.0 Intake and Output 09/18/16 09/19/16 19:00 07:00 Intake Total 320 ml 237 ml Output Total 300 ml 250 ml Balance 20 ml -13 ml Intake Oral 320 ml 237 ml Output Urine Total 300 ml 250 ml # Bowel Movements 1 Height (Feet): 5 Height (Inches): 4.00 Weight (Pounds): 341 General Appearance: no apparent distress, alert EENT: PERRL/EOMI, pharynx normal Neck: non-tender, supple Cardiovascular: normal rate, regular rhythm, no gallop/murmur, no JVD Respiratory/Chest: chest wall non-tender, normal breath sounds, no respiratory distress Abdomen: non tender, soft, no mass Extremities: non-tender, normal inspection, no calf tenderness Edema: no edema noted Arm (L), no edema noted Arm (R), 2+ Leg (L), 2+ Leg (R), 2+ Pedal (L), 2+ Pedal (R), 2+ Generalized Edema: moderate edema Neurologic: consultant technology II-XII grossly normal, oriented x 3, responsive Skin: warm/dry Lymphatic: normal anterior cervical (L), normal anterior cervical (R), normal axillary (L), normal axillary (R), normal inguinal (L), normal inguinal (R), normal other, normal posterior cervical (L), normal posterior cervical (R), normal submandibular (L), normal submandibular (R), normal supraclavicular (L), normal supraclavicular (R) Manny Nolan MD Sep 19, 2016 15:50
[2016-09-19 16:00] VITALS: BP 134/82
[2016-09-19 16:42] LABS: BASOPHILS % (AUTO) 1.8 % (0.0-2.0); EOSINOPHILS % (AUTO) 3.2 % (0.0-3.0); LYMPHOCYTES % (AUTO) 14.2 % (20.0-45.0); MEAN CORPUSCULAR HEMOGLOBIN 29.8 PG (27.0-31.0); MEAN CORPUSCULAR HGB CONC 30.9 G/DL (32.0-36.0); MEAN CORPUSCULAR VOLUME 96 FL (80-99); MEAN PLATELET VOLUME 5.9 FL (6.5-10.1); MONOCYTES % (AUTO) 6.2 % (1.0-10.0); NEUTROPHILS % (AUTO) 74.6 % (45.0-75.0); PLATELET COUNT 180 K/UL (150-450); RED BLOOD COUNT 2.97 M/UL (4.20-5.40); WHITE BLOOD COUNT 5.2 K/UL (4.8-10.8)
--- NOTE | 2016-09-19 17:59 | General Progress Note ---
Assessment/Plan Assessment/Plan Assessment - UGIB - resolved - Anemia-Last EGD/Colon 05/2014 (duodenal AVM- cauterized, mild diverticulosis) - Chronic hypercapnic resp failure - awaiting trach - Renal failure - Morbid obesity - CHF - atrial fibrillation Recommendations - await trach - Rx empirically with H2B - Monitor labs - Elevate HOB - PO as tolerated Subjective Allergies: Coded Allergies: AMOXICILLIN (Verified Allergy, Mild, RASH, 12/25/09) MORPHINE (Unverified Allergy, Unknown, 09/06/16) PENICILLINS (Unverified Allergy, Unknown, 04/06/16) Subjective no new complaints awaiting trach placement eating OK now Objective Last 24 Hour Vital Signs Date Time Temp Pulse Resp B/P Pulse Ox O2 Delivery O2 Flow Rate FiO2 09/19/16 16:11 79 09/19/16 16:00 97.8 70 19 134/82 100 Bi-pap 6.0 09/19/16 16:00 15.0 09/19/16 12:00 97.5 85 18 130/71 96 Bi-pap 09/19/16 12:00 15.0 09/19/16 12:00 78 09/19/16 08:51 78 09/19/16 08:00 15.0 09/19/16 07:56 97.8 80 18 139/63 100 Bi-pap 09/19/16 07:06 100 Bi-pap 12.0 55 09/19/16 07:06 Bi-pap 12.0 55 09/19/16 04:00 96.8 73 18 143/75 97 Bi-pap 6.0 09/19/16 04:00 15.0 09/19/16 04:00 78 09/19/16 00:00 15.0 09/19/16 00:00 79 09/19/16 00:00 96.8 73 20 125/74 100 Bi-pap 6.0 09/18/16 20:00 70 09/18/16 20:00 15.0 09/18/16 20:00 97.7 80 19 112/65 100 Bi-pap 6.0 09/18/16 19:22 Bi-pap 09/18/16 19:22 100 Bi-pap Intake and Output 09/18/16 09/19/16 19:00 07:00 Intake Total 320 ml 237 ml Output Total 300 ml 250 ml Balance 20 ml -13 ml Intake Oral 320 ml 237 ml Output Urine Total 300 ml 250 ml # Bowel Movements 1 Laboratory Tests 09/19/16 16:20: White Blood Count 5.2, Red Blood Count 2.97L, Hemoglobin 8.8L, Hematocrit 28.6L , Mean Corpuscular Volume 96, Mean Corpuscular Hemoglobin 29.8, Mean Corpuscular Hemoglobin Concent 30.9L, Red Cell Distribution Width 15.0H, Platelet Count 180, Mean Platelet Volume 5.9L, Neutrophils (%) (Auto) 74.6, Lymphocytes (%) (Auto) 14.2L, Monocytes (%) (Auto) 6.2, Eosinophils (%) (Auto) 3.2H, Basophils (%) (Auto) 1.8 Height (Feet): 5 Height (Inches): 4.00 Weight (Pounds): 341 Objective Obese WW NCAT supple Coarse BS, melissa RR Abd soft NT ND, obese (+) edema Neuro - responsive BRETT DALE Sep 19, 2016 17:59
[2016-09-19 20:00] VITALS: BP 129/68
[2016-09-20] VITALS (19 sets, daily range): BP systolic 104–130; BP diastolic 35–99
[2016-09-20 05:16] LABS: BASOPHILS % (AUTO) 0.9 % (0.0-2.0); EOSINOPHILS % (AUTO) 3.4 % (0.0-3.0); LYMPHOCYTES % (AUTO) 18.5 % (20.0-45.0); MEAN CORPUSCULAR HEMOGLOBIN 29.7 PG (27.0-31.0); MEAN CORPUSCULAR HGB CONC 30.8 G/DL (32.0-36.0); MEAN CORPUSCULAR VOLUME 96 FL (80-99); MEAN PLATELET VOLUME 5.8 FL (6.5-10.1); MONOCYTES % (AUTO) 8.4 % (1.0-10.0); NEUTROPHILS % (AUTO) 68.7 % (45.0-75.0); PLATELET COUNT 173 K/UL (150-450); RED CELL DISTRIBUTION WIDTH 14.4 % (11.6-14.8); WHITE BLOOD COUNT 5.1 K/UL (4.8-10.8)
[2016-09-20 05:32] LABS: INR 1.1 (0.9-1.1); PROTHROMBIN TIME 11.4 SEC (9.30-11.50)
[2016-09-20 05:44] LABS: ALANINE AMINOTRANSFERASE 5 U/L (3-33); ALBUMIN/GLOBULIN RATIO 0.8 (1.0-2.7); ANION GAP 8 (5-15); ASPARTATE AMINO TRANSFERASE 16 U/L (5-40); CALCIUM 9.1 mg/dL (8.6-10.2); CARBON DIOXIDE 39 mEQ/L (20-30); CHLORIDE 96 mEQ/L (98-107); HEMOLYSIS 6; POTASSIUM 4.7 mEQ/L (3.4-4.9); SODIUM 143 mEQ/L (135-145)
[2016-09-20 06:07] LABS: MAGNESIUM 2.3 mg/dL (1.7-2.5); PHOSPHORUS 4.6 mg/dL (2.5-4.8)
[2016-09-20] MEDS: Miralax 17gm pkt ORAL SCH (08:58)
[2016-09-20] MEDS: Nystatin Powder 100,000 units/gm 15gm TOPIC SCH ×3 (08:58→17:58)
[2016-09-20] MEDS: Heparin 5000 units/ml inj SUBQ SCH ×2 (08:59→21:25)
--- NOTE | 2016-09-20 10:25 | Infectious Diseases Prog Note ---
Assessment/Plan Assessment/Plan antibiotics : none A 1. e.coli esbl UTI s/p rx 2. DM 3. renal failure 4. CHF 5. respiratory failure P 1. continue off antibiotics Subjective Constitutional: Denies: chills, fever Respiratory: Denies: dry cough, shortness of breath Gastrointestinal/Abdominal: Denies: diarrhea, nausea, vomiting Musculoskeletal: Denies: pain Allergies: Coded Allergies: AMOXICILLIN (Verified Allergy, Mild, RASH, 12/25/09) MORPHINE (Unverified Allergy, Unknown, 09/06/16) PENICILLINS (Unverified Allergy, Unknown, 04/06/16) Objective Vital Signs Last 24 Hour Vital Signs Date Time Temp Pulse Resp B/P Pulse Ox O2 Delivery O2 Flow Rate FiO2 09/20/16 08:10 77 22 99 09/20/16 08:10 97 Bi-pap 12.0 55 09/20/16 08:10 Bi-pap 12.0 55 09/20/16 08:00 93 09/20/16 08:00 97.8 93 20 109/59 99 Bi-pap 6.0 09/20/16 08:00 15.0 09/20/16 05:39 72 21 99 09/20/16 04:09 79 21 99 09/20/16 04:00 70 09/20/16 04:00 15.0 09/20/16 04:00 98.1 72 19 104/41 100 Bi-pap 6.0 09/20/16 02:04 75 21 99 09/20/16 00:00 15.0 09/20/16 00:00 97.9 98 19 117/47 100 Bi-pap 6.0 09/20/16 00:00 78 09/19/16 20:00 98.2 82 19 129/68 100 Bi-pap 6.0 09/19/16 20:00 86 09/19/16 20:00 15.0 09/19/16 19:10 97 Bi-pap 12.0 55 09/19/16 19:10 Bi-pap 12.0 55 09/19/16 16:11 79 09/19/16 16:00 97.8 70 19 134/82 100 Bi-pap 6.0 09/19/16 16:00 15.0 09/19/16 12:00 97.5 85 18 130/71 96 Bi-pap 09/19/16 12:00 15.0 09/19/16 12:00 78 Height (Feet): 5 Height (Inches): 4.00 Weight (Pounds): 337 HEENT: other - on bipap Respiratory/Chest: lungs clear Cardiovascular: normal rate, regular rhythm, no gallop/murmur Abdomen: soft, non tender Extremities: other - + edema Laboratory Tests Test 09/19/16 16:20 09/20/16 03:30 White Blood Count 5.2 K/UL (4.8-10.8) 5.1 K/UL (4.8-10.8) Red Blood Count 2.97 M/UL (4.20-5.40) L 3.00 M/UL (4.20-5.40) L Hemoglobin 8.8 G/DL (12.0-16.0) L 8.9 G/DL (12.0-16.0) L Hematocrit 28.6 % (37.0-47.0) L 28.9 % (37.0-47.0) L Mean Corpuscular Volume 96 FL (80-99) 96 FL (80-99) Mean Corpuscular Hemoglobin 29.8 PG (27.0-31.0) 29.7 PG (27.0-31.0) Mean Corpuscular Hemoglobin Concent 30.9 G/DL (32.0-36.0) L 30.8 G/DL (32.0-36.0) L Red Cell Distribution Width 15.0 % (11.6-14.8) H 14.4 % (11.6-14.8) Platelet Count 180 K/UL (150-450) 173 K/UL (150-450) Mean Platelet Volume 5.9 FL (6.5-10.1) L 5.8 FL (6.5-10.1) L Neutrophils (%) (Auto) 74.6 % (45.0-75.0) 68.7 % (45.0-75.0) Lymphocytes (%) (Auto) 14.2 % (20.0-45.0) L 18.5 % (20.0-45.0) L Monocytes (%) (Auto) 6.2 % (1.0-10.0) 8.4 % (1.0-10.0) Eosinophils (%) (Auto) 3.2 % (0.0-3.0) H 3.4 % (0.0-3.0) H Basophils (%) (Auto) 1.8 % (0.0-2.0) 0.9 % (0.0-2.0) Prothrombin Time 11.4 SEC (9.30-11.50) Prothromb Time International Ratio 1.1 (0.9-1.1) Activated Partial Thromboplast Time 26 SEC (23-33) Sodium Level 143 mEQ/L (135-145) Potassium Level 4.7 mEQ/L (3.4-4.9) Chloride Level 96 mEQ/L (98-107) L Carbon Dioxide Level 39 mEQ/L (20-30) H Anion Gap 8 (5-15) Blood Urea Nitrogen 71 mg/dL (7-23) H Creatinine 3.0 mg/dL (0.5-0.9) H Estimat Glomerular Filtration Rate mL/min (>60) Glucose Level 133 mg/dL (74-106) H Calcium Level 9.1 mg/dL (8.6-10.2) Phosphorus Level 4.6 mg/dL (2.5-4.8) Magnesium Level 2.3 mg/dL (1.7-2.5) Total Bilirubin 0.3 mg/dL (0.0-1.2) Aspartate Amino Transf (AST/SGOT) 16 U/L (5-40) Alanine Aminotransferase (ALT/SGPT) 5 U/L (3-33) Alkaline Phosphatase 61 U/L (35-104) Pro-B-Type Natriuretic Peptide 7981 pg/mL (0-125) H Total Protein 7.0 g/dL (6.6-8.7) Albumin 3.3 g/dL (3.5-5.2) L Globulin 3.7 g/dL Albumin/Globulin Ratio 0.8 (1.0-2.7) L TATIANNA JONES Sep 20, 2016 10:25
[2016-09-20] MEDS ORDERED: Lidocaine 1% 10mg/ml/Epi 0.005mg/ml 30ml vial INJ ONE (10:34)
--- NOTE | 2016-09-20 10:36 | Pre-Procedure Note/Attestation ---
Pre-Procedure Note/Attestation Complete Prior to Procedure Planned Procedure: not applicable Procedure Narrative: tracheostomy Indications for Procedure Pre-Operative Diagnosis: chronic respiratory insufficiency Attestation I attest that I discussed the nature of the procedure; its benefits; risks and complications; and alternatives (and the risks and benefits of such alternatives ), prior to the procedure, with the patient (or the patient's legal artist's representative) Sean (patient boyfriend at her request). I attest that, if there was a reasonable possibility of needing a blood transfusion, the patient (or the patient's legal artist's representative) was given the [facility] standardized written summary, pursuant to the Dayne Anu Blood Safety Act ([place] Health and Safety Code # 1645, as amended). I attest that I re-evaluated the patient just prior to the surgery and that there has been no change in the patient's H&P, except as documented below: David Harman Sep 20, 2016 10:36
--- NOTE | 2016-09-20 10:52 | Pulmonology Progress Note ---
Assessment/Plan Problems: (1) Acute respiratory failure (2) CKD (chronic kidney disease) (3) Hyperkalemia (4) COPD (chronic obstructive pulmonary disease) (5) Anemia (6) MINA (obstructive sleep apnea) Assessment/Plan Respiratory: monitor respiratory rate Cardiac: continue to monitor HR/BP Renal: F/U I&O, keep IV fluid Infectious Disease: check cultures, continue antibiotics Gastrointestinal: continue feedings/current rate Endocrine: monitor blood sugar Hematologic: monitor H/H Neurologic: PRN Ativan, PRN Morphine Affect: PRN ativan Notes Reviewed: renal 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: nurses, consultants, binder caser Subjective ROS Limited/Unobtainable: No Interval Events: still on BIPAP Allergies: Coded Allergies: AMOXICILLIN (Verified Allergy, Mild, RASH, 12/25/09) MORPHINE (Unverified Allergy, Unknown, 09/06/16) PENICILLINS (Unverified Allergy, Unknown, 04/06/16) Objective Last 24 Hour Vital Signs Date Time Temp Pulse Resp B/P Pulse Ox O2 Delivery O2 Flow Rate FiO2 09/20/16 08:10 77 22 99 09/20/16 08:10 97 Bi-pap 12.0 55 09/20/16 08:10 Bi-pap 12.0 55 09/20/16 08:00 93 09/20/16 08:00 97.8 93 20 109/59 99 Bi-pap 6.0 09/20/16 08:00 15.0 09/20/16 05:39 72 21 99 09/20/16 04:09 79 21 99 09/20/16 04:00 70 09/20/16 04:00 15.0 09/20/16 04:00 98.1 72 19 104/41 100 Bi-pap 6.0 09/20/16 02:04 75 21 99 09/20/16 00:00 15.0 09/20/16 00:00 97.9 98 19 117/47 100 Bi-pap 6.0 09/20/16 00:00 78 09/19/16 20:00 98.2 82 19 129/68 100 Bi-pap 6.0 09/19/16 20:00 86 09/19/16 20:00 15.0 09/19/16 19:10 97 Bi-pap 12.0 55 09/19/16 19:10 Bi-pap 12.0 55 09/19/16 16:11 79 09/19/16 16:00 97.8 70 19 134/82 100 Bi-pap 6.0 09/19/16 16:00 15.0 09/19/16 12:00 97.5 85 18 130/71 96 Bi-pap 09/19/16 12:00 15.0 09/19/16 12:00 78 Intake and Output 09/19/16 09/20/16 19:00 07:00 Intake Total 300 ml 50 ml Output Total 200 ml 350 ml Balance 100 ml -300 ml Intake Oral 300 ml 50 ml Output Urine Total 200 ml 350 ml # Bowel Movements 2 Objective General Appearance: WD/WN HEENT: normocephalic, atraumatic Respiratory/Chest: chest wall non-tender, lungs clear Breasts: no masses Abdomen: normal bowel sounds, soft, non tender Genitourinary: normal external genitalia Extremities: no cyanosis Skin: no rash Laboratory Tests 09/19/16 16:20: White Blood Count 5.2, Red Blood Count 2.97L, Hemoglobin 8.8L, Hematocrit 28.6L , Mean Corpuscular Volume 96, Mean Corpuscular Hemoglobin 29.8, Mean Corpuscular Hemoglobin Concent 30.9L, Red Cell Distribution Width 15.0H, Platelet Count 180, Mean Platelet Volume 5.9L, Neutrophils (%) (Auto) 74.6, Lymphocytes (%) (Auto) 14.2L, Monocytes (%) (Auto) 6.2, Eosinophils (%) (Auto) 3.2H, Basophils (%) (Auto) 1.8 09/20/16 03:30: White Blood Count 5.1, Red Blood Count 3.00L, Hemoglobin 8.9L, Hematocrit 28.9L , Mean Corpuscular Volume 96, Mean Corpuscular Hemoglobin 29.7, Mean Corpuscular Hemoglobin Concent 30.8L, Red Cell Distribution Width 14.4, Platelet Count 173, Mean Platelet Volume 5.8L, Neutrophils (%) (Auto) 68.7, Lymphocytes (%) (Auto) 18.5L, Monocytes (%) (Auto) 8.4, Eosinophils (%) (Auto) 3.4H, Basophils (%) (Auto) 0.9, Prothrombin Time 11.4, Prothromb Time International Ratio 1.1, Activated Partial Thromboplast Time 26, Sodium Level 143, Potassium Level 4.7, Chloride Level 96L, Carbon Dioxide Level 39H, Anion Gap 8, Blood Urea Nitrogen 71H, Creatinine 3.0H, Estimat Glomerular Filtration Rate , Glucose Level 133H, Calcium Level 9.1, Phosphorus Level 4.6, Magnesium Level 2.3, Total Bilirubin 0.3, Aspartate Amino Transf (AST/SGOT) 16, Alanine Aminotransferase (ALT/SGPT) 5, Alkaline Phosphatase 61, Pro-B-Type Natriuretic Peptide 7981H, Total Protein 7.0, Albumin 3.3L, Globulin 3.7, Albumin/Globulin Ratio 0.8L Current Medications Medications (Trade) Dose Ordered Sig/Kalyn Route PRN Reason Start Time Stop Time Status Last Admin Dose Admin Acetaminophen (Tylenol) 650 mg Q4H PRN ORAL T>100.5 09/13/16 18:30 10/13/16 18:29 09/15/16 15:49 Dextrose (Dextrose 50%) STAT PRN IV Hypoglycemia 09/13/16 18:15 10/13/16 18:14 Epoetin Santos (Procrit (for ESRD on dialysis)) 7,000 units MON-WED-TUE SUBQ 09/15/16 21:00 10/15/16 20:59 09/17/16 21:21 Folic Acid (Folate) 2 mg DAILY ORAL 09/14/16 09:00 10/14/16 08:59 09/19/16 08:31 Heparin Sodium (Porcine) (Heparin 5000 units/ml) 5,000 units EVERY 12 HOURS SUBQ 09/13/16 21:00 10/13/16 20:59 09/19/16 22:27 Nystatin (Nystop Powder) 1 applic THREE TIMES A DAY TOPIC 09/13/16 18:00 10/13/16 17:59 09/20/16 08:58 Ondansetron HCl (Zofran) 4 mg Q6H PRN IVP Nausea & Vomiting 09/13/16 18:30 10/13/16 18:29 Pantoprazole (Protonix) 40 mg EVERY 12 HOURS ORAL 09/14/16 21:00 10/14/16 20:59 09/19/16 21:21 Polyethylene Glycol (Miralax) 17 gm DAILY ORAL 09/14/16 09:00 10/14/16 08:59 09/19/16 08:31 Polyethylene Glycol (Miralax) 17 gm DAILYPRN PRN ORAL Constipation 09/13/16 18:30 10/13/16 18:29 09/15/16 01:49 Pravastatin Sodium (Pravachol) 20 mg BEDTIME ORAL 09/13/16 21:00 10/13/16 20:59 09/19/16 21:22 Sevelamer Carbonate 1600 mg 1,600 mg THREE TIMES A DAY ORAL 09/15/16 13:00 10/15/16 12:59 09/19/16 17:16 Sodium Chloride (0.45% NS 1000ml) 1,000 ml @ 75 mls/hr [id number] IV 09/20/16 11:00 10/20/16 10:59 Temazepam (Restoril) 15 mg HSPRN PRN ORAL Insomnia 09/13/16 21:00 09/20/16 20:59 ARASH MIRANDA Sep 20, 2016 10:52
--- NOTE | 2016-09-20 11:01 | General Progress Note ---
Assessment/Plan Status: stable Status Narrative Cr slightly lower at 3 Assessment/Plan CKD- and acute renal failure Acute respiratory failure High K Obese COPD , rising Co2 CHF, Diastolic MINA UTI Anemia GI Bleed, GI bleeding At Fib Pulm HTN Low B12 Plan; Due Trach today 24 h Urine CrCl and Protein- ordered ( CrCl 12) BIPAP- pulm support On Renvela Stop Sildenifil Optimize cardiac status- Monitor renal parameters and lytes- Avoid nephrotoxics B12 SQ- PO Folate Subjective ROS Limited/Unobtainable: No Allergies: Coded Allergies: AMOXICILLIN (Verified Allergy, Mild, RASH, 12/25/09) MORPHINE (Unverified Allergy, Unknown, 09/06/16) PENICILLINS (Unverified Allergy, Unknown, 04/06/16) Objective Last 24 Hour Vital Signs Date Time Temp Pulse Resp B/P Pulse Ox O2 Delivery O2 Flow Rate FiO2 09/20/16 08:10 77 22 99 09/20/16 08:10 97 Bi-pap 12.0 55 09/20/16 08:10 Bi-pap 12.0 55 09/20/16 08:00 93 09/20/16 08:00 97.8 93 20 109/59 99 Bi-pap 6.0 09/20/16 08:00 15.0 09/20/16 05:39 72 21 99 09/20/16 04:09 79 21 99 09/20/16 04:00 70 09/20/16 04:00 15.0 09/20/16 04:00 98.1 72 19 104/41 100 Bi-pap 6.0 09/20/16 02:04 75 21 99 09/20/16 00:00 15.0 09/20/16 00:00 97.9 98 19 117/47 100 Bi-pap 6.0 09/20/16 00:00 78 09/19/16 20:00 98.2 82 19 129/68 100 Bi-pap 6.0 09/19/16 20:00 86 09/19/16 20:00 15.0 09/19/16 19:10 97 Bi-pap 12.0 55 09/19/16 19:10 Bi-pap 12.0 55 09/19/16 16:11 79 09/19/16 16:00 97.8 70 19 134/82 100 Bi-pap 6.0 09/19/16 16:00 15.0 09/19/16 12:00 97.5 85 18 130/71 96 Bi-pap 09/19/16 12:00 15.0 09/19/16 12:00 78 Intake and Output 09/19/16 09/20/16 19:00 07:00 Intake Total 300 ml 50 ml Output Total 200 ml 350 ml Balance 100 ml -300 ml Intake Oral 300 ml 50 ml Output Urine Total 200 ml 350 ml # Bowel Movements 2 Laboratory Tests 09/19/16 16:20: White Blood Count 5.2, Red Blood Count 2.97L, Hemoglobin 8.8L, Hematocrit 28.6L , Mean Corpuscular Volume 96, Mean Corpuscular Hemoglobin 29.8, Mean Corpuscular Hemoglobin Concent 30.9L, Red Cell Distribution Width 15.0H, Platelet Count 180, Mean Platelet Volume 5.9L, Neutrophils (%) (Auto) 74.6, Lymphocytes (%) (Auto) 14.2L, Monocytes (%) (Auto) 6.2, Eosinophils (%) (Auto) 3.2H, Basophils (%) (Auto) 1.8 09/20/16 03:30: White Blood Count 5.1, Red Blood Count 3.00L, Hemoglobin 8.9L, Hematocrit 28.9L , Mean Corpuscular Volume 96, Mean Corpuscular Hemoglobin 29.7, Mean Corpuscular Hemoglobin Concent 30.8L, Red Cell Distribution Width 14.4, Platelet Count 173, Mean Platelet Volume 5.8L, Neutrophils (%) (Auto) 68.7, Lymphocytes (%) (Auto) 18.5L, Monocytes (%) (Auto) 8.4, Eosinophils (%) (Auto) 3.4H, Basophils (%) (Auto) 0.9, Prothrombin Time 11.4, Prothromb Time International Ratio 1.1, Activated Partial Thromboplast Time 26, Sodium Level 143, Potassium Level 4.7, Chloride Level 96L, Carbon Dioxide Level 39H, Anion Gap 8, Blood Urea Nitrogen 71H, Creatinine 3.0H, Estimat Glomerular Filtration Rate , Glucose Level 133H, Calcium Level 9.1, Phosphorus Level 4.6, Magnesium Level 2.3, Total Bilirubin 0.3, Aspartate Amino Transf (AST/SGOT) 16, Alanine Aminotransferase (ALT/SGPT) 5, Alkaline Phosphatase 61, Pro-B-Type Natriuretic Peptide 7981H, Total Protein 7.0, Albumin 3.3L, Globulin 3.7, Albumin/Globulin Ratio 0.8L Height (Feet): 5 Height (Inches): 4.00 Weight (Pounds): 337 General Appearance: no apparent distress Objective no change COURTNEY LOPEZ Sep 20, 2016 11:01
[2016-09-20] MEDS ORDERED: Sterile Water Irrig 1000ml IRRIG ONE (12:00)
[2016-09-20] MEDS ORDERED: fentaNYL 100 mcg/2 mL IV ONE (12:00)
[2016-09-20] MEDS ORDERED: Midazolam 2mg/2ml Inj ONE (12:00)
[2016-09-20] MEDS ORDERED: NS Irrig 1000ml ONE (12:00)
[2016-09-20] MEDS ORDERED: Zemuron 50mg/5ml Inj IV ONE (12:00)
[2016-09-20] MEDS ORDERED: Clindamycin 600mg 50 ML IV ONE (12:02)
--- NOTE | 2016-09-20 12:15 | Diagnostic Imaging Report ---
Indication: DYSPNEA Technique: One view of the chest Comparison: 09/15/2016 Findings: The heart remains enlarged. Left hemidiaphragm is better visualized, suggesting improved left basilar atelectasis or infiltrate. No new infiltrates Impression: Cardiomegaly Improved left basilar pleural and/or parenchymal disease, over 5 days
[2016-09-20] MEDS ORDERED: DiphenhydrAMINE 50mg/ml Inj IVP PRN (12:30)
[2016-09-20] MEDS ORDERED: fentaNYL 100 mcg/2 mL IV PRN (12:30)
[2016-09-20] MEDS ORDERED: LR 1000ml 1,000 ML IVLG SCH (12:30)
[2016-09-20] MEDS ORDERED: Midazolam 2mg/2ml Inj IVP PRN (12:30)
--- NOTE | 2016-09-20 12:30 | Anethesia Preoperative Eval ---
Anesthesia Pre-op PMH/ROS General Date of Evaluation: Sep 20, 2016 Time of Evaluation: 11:35 Anesthesiologist: Dianne ASA Score: ASA 4 Mallampati Score Class I : Soft palate, uvula, fauces, pillars visible Class II: Soft palate, uvula, fauces visible Class III: Soft palate, base of uvula visible Class IV: Only hard plate visible Mallampati Classification: Class III Surgeon: Mita Diagnosis: Respiratory failure Surgical Procedure: Tracheostomy Anesthesia History: none Social History: smoking - h/o Family History: no anesthesia problems Allergies: Coded Allergies: AMOXICILLIN (Verified Allergy, Mild, RASH, 12/25/09) MORPHINE (Unverified Allergy, Unknown, 09/06/16) PENICILLINS (Unverified Allergy, Unknown, 04/06/16) Medications: see eMAR Past Medical History Cardiovascular: Reports: HTN, arrhythmia - A fib., other - Pulmonary HTN, Denies: CAD, DC, valve dz Pulmonary: Reports: COPD, MINA, Denies: asthma, other Gastrointestinal/Genitourinary: Reports: CRI, GERD, other - GI bleed Neurologic/Psychiatric: Reports: depression/anxiety, Denies: CVA, TIA, dementia, other Endocrine: Reports: DM, Denies: hypothyroidism, other, steroids HEENT: Reports: cataract (L), cataract (R), Denies: ILIAMNA (L), ILIAMNA (R), glaucoma, other Hematology/Immune: Reports: anemia, Denies: DVT, bleeding disorder, other Musculoskeletal/Integumentary: Reports: DJD Other: obesity - morbid obesity PMH Narrative: as above PSxH Narrative: see chart Anesthesia Pre-op Phys. Exam Physician Exam Last Vital Signs Date Time Temp Pulse Resp B/P Pulse Ox O2 Delivery O2 Flow Rate FiO2 09/20/16 08:10 77 22 99 09/20/16 08:10 Bi-pap 12.0 55 09/20/16 08:00 97.8 109/59 Constitutional: other - SOB Neurologic: other - unable to obtaine Cardiovascular: RRR Respiratory: other - Diminished breath sounds Gastrointestinal: other - obesity Airway Exam Mallampati Score: Class III MO: limited Neck: short ROM: limited Teeth: missing Dentures: no lower, no upper Anesthesia Pre-op A/P Labs Hematology Test 09/19/16 16:20 09/20/16 03:30 White Blood Count 5.2 K/UL (4.8-10.8) 5.1 K/UL (4.8-10.8) Red Blood Count 2.97 M/UL (4.20-5.40) L 3.00 M/UL (4.20-5.40) L Hemoglobin 8.8 G/DL (12.0-16.0) L 8.9 G/DL (12.0-16.0) L Hematocrit 28.6 % (37.0-47.0) L 28.9 % (37.0-47.0) L Mean Corpuscular Volume 96 FL (80-99) 96 FL (80-99) Mean Corpuscular Hemoglobin 29.8 PG (27.0-31.0) 29.7 PG (27.0-31.0) Mean Corpuscular Hemoglobin Concent 30.9 G/DL (32.0-36.0) L 30.8 G/DL (32.0-36.0) L Red Cell Distribution Width 15.0 % (11.6-14.8) H 14.4 % (11.6-14.8) Platelet Count 180 K/UL (150-450) 173 K/UL (150-450) Mean Platelet Volume 5.9 FL (6.5-10.1) L 5.8 FL (6.5-10.1) L Neutrophils (%) (Auto) 74.6 % (45.0-75.0) 68.7 % (45.0-75.0) Lymphocytes (%) (Auto) 14.2 % (20.0-45.0) L 18.5 % (20.0-45.0) L Monocytes (%) (Auto) 6.2 % (1.0-10.0) 8.4 % (1.0-10.0) Eosinophils (%) (Auto) 3.2 % (0.0-3.0) H 3.4 % (0.0-3.0) H Basophils (%) (Auto) 1.8 % (0.0-2.0) 0.9 % (0.0-2.0) Coagulation Test 09/20/16 03:30 Prothrombin Time 11.4 SEC (9.30-11.50) Prothromb Time International Ratio 1.1 (0.9-1.1) Activated Partial Thromboplast Time 26 SEC (23-33) Chemistry Test 09/20/16 03:30 Sodium Level 143 mEQ/L (135-145) Potassium Level 4.7 mEQ/L (3.4-4.9) Chloride Level 96 mEQ/L (98-107) L Carbon Dioxide Level 39 mEQ/L (20-30) H Anion Gap 8 (5-15) Blood Urea Nitrogen 71 mg/dL (7-23) H Creatinine 3.0 mg/dL (0.5-0.9) H Estimat Glomerular Filtration Rate mL/min (>60) Glucose Level 133 mg/dL (74-106) H Calcium Level 9.1 mg/dL (8.6-10.2) Phosphorus Level 4.6 mg/dL (2.5-4.8) Magnesium Level 2.3 mg/dL (1.7-2.5) Total Bilirubin 0.3 mg/dL (0.0-1.2) Aspartate Amino Transf (AST/SGOT) 16 U/L (5-40) Alanine Aminotransferase (ALT/SGPT) 5 U/L (3-33) Alkaline Phosphatase 61 U/L (35-104) Pro-B-Type Natriuretic Peptide 7981 pg/mL (0-125) H Total Protein 7.0 g/dL (6.6-8.7) Albumin 3.3 g/dL (3.5-5.2) L Globulin 3.7 g/dL Albumin/Globulin Ratio 0.8 (1.0-2.7) L Studies Pre-op Studies: EKG - A fib Risk Assessment & Plan Assessment: ASA 4 Plan: GA with ETT ICU care postop, vent dependent Status Change Before Surgery: No Pre-Antibiotics Drug: Clindamycin 600mg Given Within 1 Hr of Incision: Yes Time Given: 12:15 JESSE ESCALERA M.D. Sep 20, 2016 12:30
--- NOTE | 2016-09-20 12:50 | Brief Operative Note ---
Immediate Post Operative Note Operative Note Pre-op Diagnosis: chronic respiratory insufficiency Procedure: tracheostomy Post-op Diagnosis: same as pre-op Surgeon: leslye Anesthesiologist: bhavik Anesthesia: general Specimen: none Complications: none Condition: stable Fluids: see records Estimated Blood Loss: minimal Drains: none Implant(s) used?: Yes - 8f David French Sep 20, 2016 12:50
--- NOTE | 2016-09-20 13:08 | Immediate Post-Op Evaluation ---
Immediate Post-Op Evalulation Immediate Post-Op Evalulation Procedure: Tracheostomy Date of Evaluation: Sep 20, 2016 Time of Evaluation: 13:06 IV Fluids: 300 Blood Products: none Estimated Blood Loss: min Urinary Output: 200 Blood Pressure Systolic: 116 Blood Pressure Diastolic: 53 Pulse Rate: 74 Respiratory Rate: 14 O2 Sat by Pulse Oximetry: 96 Temperature (Fahrenheit): 97.6 Pain Score (1-10): 2 Nausea: No Vomiting: No Complications none Patient Status: reacts, extubated, ventilated, none Hydration Status: adequate JESSE ESCALERA M.D. Sep 20, 2016 13:07
[2016-09-20] MEDS ORDERED: NS 275ml ONE (16:22)
[2016-09-20] MEDS: Ketorolac 30mg Inj IV PRN (18:58)
--- NOTE | 2016-09-20 19:00 | Operative Note - Dictated ---
DATE OF OPERATION: 09/20/2016 PREOPERATIVE DIAGNOSES: 1. Chronic respiratory insufficiency. 2. Chronic obstructive pulmonary disease. 3. BiPAP dependent. POSTOPERATIVE DIAGNOSES: 1. Chronic respiratory insufficiency. 2. Chronic obstructive pulmonary disease. 3. BiPAP dependent. OPERATION PERFORMED: Tracheostomy. ATTENDING SURGEON: David Harman M.D. [employer] CAR[employer] GROUND OPERATIONS SUPERVISOR: None. ANESTHESIOLOGIST: Richard Dean M.D. ANESTHESIA: General QUALITY ASSURANCE REPRESENTATIVE. COMPLICATIONS: None. ESTIMATED BLOOD LOSS: Minimal. IV FLUIDS: Please see anesthesia records. SPECIMENS: None. DRAINS: None. IMPLANTS: An 8-Chadian Shiley tracheostomy tube inserted. ANTIBIOTICS: The patient received ABX one hour prior to cut time. WOUND CLASSIFICATION: Class I. COUNTS: Sponge and needle count correct x2. INDICATIONS FOR PROCEDURE: This is a 75-year-old female, who has COPD and chronic respiratory insufficiency with multiple episodes of acute respiratory insufficiency requiring hospitalization with consistent need for BiPAP. The patient given the consistent BiPAP with pressure and mask, the patient has ulcers around the lips and is developing abrasions on the face and is uncomfortable. I was asked to see the patient for evaluation of possible tracheostomy. Given the patient's history, current status, multiple recurrences, sleep apnea, shortness of breath, and complications of BiPAP, I offered the patient a tracheostomy. The risks, benefits, and alternatives of tracheostomy were discussed with the patient and her boyfriend at her request in detail. After doing so, a tracheostomy was scheduled and the patient consented to surgery. OPERATIVE NOTE: The patient was taken to the operating room and placed on operating table in supine position bilateral arms out. All bony prominences were well padded with gel pads. Appropriate time-out was taken identifying the patient, procedure, operative staff, and surgical staff. General anesthesia was induced and the patient was intubated. A roll was placed under the patient's shoulder and the neck was hyperextended. The neck was then prepped and draped in standard surgical fashion. Anatomic landmarks were identified and a transverse incision was made 2 cm above the sternal notch. Incision was carried down through the subcutaneous tissue and platysma with electrocautery down to the tracheostomy. Small perforating veins were ligated with 3-0 Vicryl sutures as necessary. Once the trachea was identified, it was cleared off until the first and second tracheal ring. A tracheal hook was inserted and the trachea was elevated and stabilized. Using a fresh blade, an incision was made in the second cartilage ring in three directions creating a Raf flap. Anesthesia was then notified and slowly withdrew the ET tube. When the tip of the ET tube was seen, an 8-Ch[place] Shiley tracheostomy was inserted under direct visualization without complication. The balloon of the tracheostomy was then insufflated and tracheostomy placed on the ventilator and in a satisfactory ventilatory support was achieved. The Raf flap was then attached to the dermis with a 2-0 Prolene suture. Following this, the wound was irrigated and cleaned and closed using 2-0 nylon sutures. The tracheostomy was attached to the skin with 2-0 nylon sutures in four points. A trach collar was placed. Dressings were placed. The patient tolerated the procedure well, was taken to the postanesthetic care unit using the tracheostomy without complication. David Harman M.D. DR: ISIS JOB#: [id number] CC: LOBO
--- NOTE | 2016-09-20 20:00 | Cardiology Progress Note ---
Assessment/Plan Assessment/Plan 1. Coffee-ground emesis. 2. Anemia, worsened, chronic. 3. Gastrointestinal bleed. 4. Permanent atrial fibrillation. 5. History of pulmonary hypertension of significant degree, treated with sildenafil. 6. Systemic hypertension. 7. Chronic renal insufficiency. 8. Diabetes mellitus 9. respiratory acidosis 10. hypotension 11. diastolic failure hgb noted low stable bp seem borderliene off eliquis for now tele noted afib vr ok is off sildenafil will resuem in am mahendra heltp with right heart failure diurtics as bp allow d/w dr quintan[place] Subjective Subjective on vent post darío in icu has pain Objective Last 24 Hour Vital Signs Date Time Temp Pulse Resp B/P Pulse Ox O2 Delivery O2 Flow Rate FiO2 09/20/16 19:32 80 16 45 09/20/16 19:00 75 16 109/68 100 Mechanical Ventilator 50 09/20/16 18:00 75 16 123/35 100 Mechanical Ventilator 50 09/20/16 17:00 74 16 122/62 100 Mechanical Ventilator 50 09/20/16 16:36 82 16 45 09/20/16 16:00 97.8 76 16 120/93 100 Mechanical Ventilator 50 09/20/16 16:00 76 09/20/16 15:07 84 16 50 09/20/16 15:00 79 16 127/99 100 Mechanical Ventilator 50 09/20/16 14:09 50 09/20/16 14:08 75 09/20/16 14:06 77 16 Mechanical Ventilator 09/20/16 14:01 77 16 50 09/20/16 14:00 74 16 125/84 100 Mechanical Ventilator 50 09/20/16 13:37 50 09/20/16 13:35 97.0 76 15 129/76 100 Mechanical Ventilator 50 09/20/16 13:25 79 19 119/78 100 Mechanical Ventilator 50 09/20/16 13:20 72 12 130/73 100 Mechanical Ventilator 50 09/20/16 13:07 74 14 96 09/20/16 13:05 75 18 130/73 95 Mechanical Ventilator 50 09/20/16 13:00 72 16 125/53 94 Mechanical Ventilator 50 09/20/16 12:55 79 09/20/16 12:55 50 09/20/16 12:54 97.0 79 13 112/59 96 Mechanical Ventilator 50 09/20/16 08:10 77 22 99 09/20/16 08:10 97 Bi-pap 12.0 55 09/20/16 08:10 Bi-pap 12.0 55 09/20/16 08:00 93 09/20/16 08:00 97.8 93 20 109/59 99 Bi-pap 6.0 09/20/16 08:00 15.0 09/20/16 05:39 72 21 99 09/20/16 04:09 79 21 99 09/20/16 04:00 70 09/20/16 04:00 15.0 09/20/16 04:00 98.1 72 19 104/41 100 Bi-pap 6.0 09/20/16 02:04 75 21 99 09/20/16 00:00 15.0 09/20/16 00:00 97.9 98 19 117/47 100 Bi-pap 6.0 09/20/16 00:00 78 09/19/16 20:00 98.2 82 19 129/68 100 Bi-pap 6.0 09/19/16 20:00 86 09/19/16 20:00 15.0 General Appearance: on vent, patient on isolation Neck: supple, other - trach Cardiovascular: irregularly irregular Respiratory/Chest: rhonchi - bilaterally Abdomen: normal bowel sounds, non tender, soft Extremities: severe edema Intake and Output 09/19/16 09/20/16 19:00 07:00 Intake Total 300 ml 50 ml Output Total 200 ml 350 ml Balance 100 ml -300 ml Intake Oral 300 ml 50 ml Output Urine Total 200 ml 350 ml # Bowel Movements 2 Laboratory Tests Test 09/20/16 03:30 White Blood Count 5.1 K/UL (4.8-10.8) Red Blood Count 3.00 M/UL (4.20-5.40) L Hemoglobin 8.9 G/DL (12.0-16.0) L Hematocrit 28.9 % (37.0-47.0) L Mean Corpuscular Volume 96 FL (80-99) Mean Corpuscular Hemoglobin 29.7 PG (27.0-31.0) Mean Corpuscular Hemoglobin Concent 30.8 G/DL (32.0-36.0) L Red Cell Distribution Width 14.4 % (11.6-14.8) Platelet Count 173 K/UL (150-450) Mean Platelet Volume 5.8 FL (6.5-10.1) L Neutrophils (%) (Auto) 68.7 % (45.0-75.0) Lymphocytes (%) (Auto) 18.5 % (20.0-45.0) L Monocytes (%) (Auto) 8.4 % (1.0-10.0) Eosinophils (%) (Auto) 3.4 % (0.0-3.0) H Basophils (%) (Auto) 0.9 % (0.0-2.0) Prothrombin Time 11.4 SEC (9.30-11.50) Prothromb Time International Ratio 1.1 (0.9-1.1) Activated Partial Thromboplast Time 26 SEC (23-33) Sodium Level 143 mEQ/L (135-145) Potassium Level 4.7 mEQ/L (3.4-4.9) Chloride Level 96 mEQ/L (98-107) L Carbon Dioxide Level 39 mEQ/L (20-30) H Anion Gap 8 (5-15) Blood Urea Nitrogen 71 mg/dL (7-23) H Creatinine 3.0 mg/dL (0.5-0.9) H Estimat Glomerular Filtration Rate mL/min (>60) Glucose Level 133 mg/dL (74-106) H Calcium Level 9.1 mg/dL (8.6-10.2) Phosphorus Level 4.6 mg/dL (2.5-4.8) Magnesium Level 2.3 mg/dL (1.7-2.5) Total Bilirubin 0.3 mg/dL (0.0-1.2) Aspartate Amino Transf (AST/SGOT) 16 U/L (5-40) Alanine Aminotransferase (ALT/SGPT) 5 U/L (3-33) Alkaline Phosphatase 61 U/L (35-104) Pro-B-Type Natriuretic Peptide 7981 pg/mL (0-125) H Total Protein 7.0 g/dL (6.6-8.7) Albumin 3.3 g/dL (3.5-5.2) L Globulin 3.7 g/dL Albumin/Globulin Ratio 0.8 (1.0-2.7) L BRIANA TELLES Sep 20, 2016 20:00
--- NOTE | 2016-09-20 20:01 | General Progress Note ---
Assessment/Plan Status: progressing Assessment/Plan 1. Acute respiratory failure requiring BiPAP with respiratory acidosis --on continuous Bipap hs and prn, patient now on Trillogy vent -patient now out of ICU on Nasal canula -s/p Trach. POD 0, will order IV Tylenol q8 for four doses in addition to iv toradol 2. Acute gastrointestinal bleed with acute anemia requiring blood transfusion. -s/p BT 4 units, H/H stable, no more episodes of hematemesis -diet was advanced by GI currently on soft diet tolerating diet - follow Dr Rodriguez recommendations, UGI is limited study no ulcers seen, has esophageal dysmotility -continue PPI -not safe for EGD at this time 3. Acute kidney injury on chronic kidney disease. now with oliguria -stable, renal US noted - CrCl is 12 4. Hyperkalemia., resolved. 5. Acute diastolic ongestive heart failure. - lasix prn per cards - Dr Peralta cardio 6. Atrial fibrillation. - off eliquis for now, at risk for cva 7. Pulmonary hypertension. - off sildanefil due to hypotension 8. Morbid obesity: diet and excercise when medically stable 9. Chronic obstructive pulmonary disease. continue nebulizer 10. 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 UTI Ecoli ESBL with sepsis: antibioitics per ID,finished course of Erthapenam 12. morbid obesity: diet and weight loss encouraged 13. DJD: will need pt/ot, home health once dc, will order large wheel chair, hospital bed for home use 14. hypotension: improved PT/OT when clinically more stable rehab placement once cleared by medical team discussed with icu nurse and Dr. Peralta Subjective Date patient seen: Sep 20, 2016 ROS Limited/Unobtainable: Yes Allergies: Coded Allergies: AMOXICILLIN (Verified Allergy, Mild, RASH, 12/25/09) MORPHINE (Unverified Allergy, Unknown, 09/06/16) PENICILLINS (Unverified Allergy, Unknown, 04/06/16) Subjective The patient was seen and examined at bedside and all new and available data was reviewed in the patients chart. I agree with the above findings, impression and plan. (Patient seen earlier today. Signature stamp does not reflect patient encounter time.). -Manny Nolan MD Objective Last 24 Hour Vital Signs Date Time Temp Pulse Resp B/P Pulse Ox O2 Delivery O2 Flow Rate FiO2 09/20/16 19:32 80 16 45 09/20/16 19:00 75 16 109/68 100 Mechanical Ventilator 50 09/20/16 18:00 75 16 123/35 100 Mechanical Ventilator 50 09/20/16 17:00 74 16 122/62 100 Mechanical Ventilator 50 09/20/16 16:36 82 16 45 09/20/16 16:00 97.8 76 16 120/93 100 Mechanical Ventilator 50 09/20/16 16:00 76 09/20/16 15:07 84 16 50 09/20/16 15:00 79 16 127/99 100 Mechanical Ventilator 50 09/20/16 14:09 50 09/20/16 14:08 75 09/20/16 14:06 77 16 Mechanical Ventilator 09/20/16 14:01 77 16 50 09/20/16 14:00 74 16 125/84 100 Mechanical Ventilator 50 09/20/16 13:37 50 09/20/16 13:35 97.0 76 15 129/76 100 Mechanical Ventilator 50 09/20/16 13:25 79 19 119/78 100 Mechanical Ventilator 50 09/20/16 13:20 72 12 130/73 100 Mechanical Ventilator 50 09/20/16 13:07 74 14 96 09/20/16 13:05 75 18 130/73 95 Mechanical Ventilator 50 09/20/16 13:00 72 16 125/53 94 Mechanical Ventilator 50 09/20/16 12:55 79 09/20/16 12:55 50 09/20/16 12:54 97.0 79 13 112/59 96 Mechanical Ventilator 50 09/20/16 08:10 77 22 99 09/20/16 08:10 97 Bi-pap 12.0 55 09/20/16 08:10 Bi-pap 12.0 55 09/20/16 08:00 93 09/20/16 08:00 97.8 93 20 109/59 99 Bi-pap 6.0 09/20/16 08:00 15.0 09/20/16 05:39 72 21 99 09/20/16 04:09 79 21 99 09/20/16 04:00 70 09/20/16 04:00 15.0 09/20/16 04:00 98.1 72 19 104/41 100 Bi-pap 6.0 09/20/16 02:04 75 21 99 09/20/16 00:00 15.0 09/20/16 00:00 97.9 98 19 117/47 100 Bi-pap 6.0 09/20/16 00:00 78 09/19/16 20:00 98.2 82 19 129/68 100 Bi-pap 6.0 09/19/16 20:00 86 09/19/16 20:00 15.0 Intake and Output 09/19/16 09/20/16 19:00 07:00 Intake Total 300 ml 50 ml Output Total 200 ml 350 ml Balance 100 ml -300 ml Intake Oral 300 ml 50 ml Output Urine Total 200 ml 350 ml # Bowel Movements 2 Laboratory Tests 09/20/16 03:30: White Blood Count 5.1, Red Blood Count 3.00L, Hemoglobin 8.9L, Hematocrit 28.9L , Mean Corpuscular Volume 96, Mean Corpuscular Hemoglobin 29.7, Mean Corpuscular Hemoglobin Concent 30.8L, Red Cell Distribution Width 14.4, Platelet Count 173, Mean Platelet Volume 5.8L, Neutrophils (%) (Auto) 68.7, Lymphocytes (%) (Auto) 18.5L, Monocytes (%) (Auto) 8.4, Eosinophils (%) (Auto) 3.4H, Basophils (%) (Auto) 0.9, Prothrombin Time 11.4, Prothromb Time International Ratio 1.1, Activated Partial Thromboplast Time 26, Sodium Level 143, Potassium Level 4.7, Chloride Level 96L, Carbon Dioxide Level 39H, Anion Gap 8, Blood Urea Nitrogen 71H, Creatinine 3.0H, Estimat Glomerular Filtration Rate , Glucose Level 133H, Calcium Level 9.1, Phosphorus Level 4.6, Magnesium Level 2.3, Total Bilirubin 0.3, Aspartate Amino Transf (AST/SGOT) 16, Alanine Aminotransferase (ALT/SGPT) 5, Alkaline Phosphatase 61, Pro-B-Type Natriuretic Peptide 7981H, Total Protein 7.0, Albumin 3.3L, Globulin 3.7, Albumin/Globulin Ratio 0.8L Height (Feet): 5 Height (Inches): 4.00 Weight (Pounds): 337 General Appearance: WD/WN, moderate distress, morbidly obese EENT: PERRL/EOMI Neck: non-tender Cardiovascular: regular rhythm, no JVD Respiratory/Chest: chest wall non-tender, lungs clear Abdomen: non tender, soft, no mass Extremities: normal range of motion, swelling Edema: no edema noted Arm (L), no edema noted Arm (R), 2+ Leg (L), 2+ Leg (R), 2+ Pedal (L), 2+ Pedal (R), 2+ Generalized Edema: moderate edema 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
[2016-09-20] MEDS: Acetaminophen (Non formulary) 100 ML IV SCH (21:10)
[2016-09-20] MEDS: Epogen (for ESRD on dialysis) SUBQ SCH (21:10)
[2016-09-20] MEDS ORDERED: Esomeprazole sodium 40mg vial IVP SCH (22:00)
[2016-09-21] VITALS (21 sets, daily range): BP systolic 100–140; BP diastolic 54–84
[2016-09-21 04:51] LABS: EOSINOPHILS % (AUTO) 3.7 % (0.0-3.0); LYMPHOCYTES % (AUTO) 13.9 % (20.0-45.0); MEAN CORPUSCULAR HEMOGLOBIN 30.2 PG (27.0-31.0); MEAN CORPUSCULAR HGB CONC 31.3 G/DL (32.0-36.0); MEAN CORPUSCULAR VOLUME 96 FL (80-99); MEAN PLATELET VOLUME 5.3 FL (6.5-10.1); MONOCYTES % (AUTO) 8.2 % (1.0-10.0); NEUTROPHILS % (AUTO) 72.2 % (45.0-75.0); PLATELET COUNT 205 K/UL (150-450); RED BLOOD COUNT 2.99 M/UL (4.20-5.40); RED CELL DISTRIBUTION WIDTH 14.7 % (11.6-14.8); WHITE BLOOD COUNT 4.7 K/UL (4.8-10.8)
[2016-09-21 05:13] LABS: CHLORIDE 96 mEQ/L (98-107); POTASSIUM 5.1 mEQ/L (3.4-4.9); SODIUM 146 mEQ/L (135-145)
[2016-09-21] MEDS: Acetaminophen (Non formulary) 100 ML IV SCH ×2 (05:18→13:34)
[2016-09-21 05:46] LABS: ALANINE AMINOTRANSFERASE 5 U/L (3-33); ALBUMIN/GLOBULIN RATIO 0.7 (1.0-2.7); ANION GAP 22 (5-15); ASPARTATE AMINO TRANSFERASE 29 U/L (5-40); CALCIUM 9.1 mg/dL (8.6-10.2); CARBON DIOXIDE 28 mEQ/L (20-30); CREATININE 2.8 mg/dL (0.5-0.9); HEMOLYSIS 27; MAGNESIUM 2.1 mg/dL (1.7-2.5); PHOSPHORUS 4.5 mg/dL (2.5-4.8); TOTAL PROTEIN 7.5 g/dL (6.6-8.7)
--- NOTE | 2016-09-21 07:44 | 48 Hour Post Anesthesia Eval ---
Post Anesthesia Evaluation Procedure: Tracheostomy Date of Evaluation: Sep 21, 2016 Time of Evaluation: 07:42 Blood Pressure Systolic: 126 0: 68 Pulse Rate: 72 Respiratory Rate: 15 - Mech Vent Temperature (Fahrenheit): 97.8 O2 Sat by Pulse Oximetry: 100 Airway: patent Nausea: No Vomiting: No Pain Intensity: 1 Cardiopulmonary Status: Stable Mental Status/LOC: other - ICU Follow-up Care/Observations: 0 Post-Anesthesia Complications: 0 Follow-up care needed: N/A Pete Tran MD Sep 21, 2016 07:44
--- NOTE | 2016-09-21 07:47 | Pulmonolgy Critical Care Note ---
Critical Care - Asmt/Plan Problems: (1) Acute respiratory failure (2) Atrial fibrillation (3) COPD (chronic obstructive pulmonary disease) (4) CKD (chronic kidney disease) (5) Pickwickian syndrome (6) Morbid obesity Respiratory: monitor respiratory rate, adjust FIO2, CXR Cardiac: continue to monitor HR/BP Renal: F/U I&O, check electrolytes Infectious Disease: check cultures, continue antibiotics Gastrointestinal: other - swallow study Endocrine: monitor blood sugar Hematologic: monitor H/H, transfuse if hgb<8.5 Neurologic: PRN Ativan, PRN Morphine, keep patient comfortable Prophylaxis: Protonix, Heparin Notes Reviewed: deblocker, renal 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: nurses, consultants, lead case manager, family member Critical Care - Objective Last 24 Hour Vital Signs Date Time Temp Pulse Resp B/P Pulse Ox O2 Delivery O2 Flow Rate FiO2 09/21/16 07:00 72 15 126/68 100 Mechanical Ventilator 50 09/21/16 06:17 97.8 09/21/16 06:00 71 17 125/60 100 Mechanical Ventilator 50 09/21/16 05:30 69 15 45 09/21/16 05:18 97.8 09/21/16 05:00 72 16 110/72 99 Mechanical Ventilator 50 09/21/16 04:01 76 15 45 09/21/16 04:00 97.8 84 17 118/75 100 Mechanical Ventilator 50 09/21/16 04:00 95 09/21/16 04:00 50 09/21/16 03:00 68 15 110/72 99 Mechanical Ventilator 50 09/21/16 02:00 65 14 108/71 98 Mechanical Ventilator 50 09/21/16 01:29 63 15 45 09/21/16 01:00 64 15 102/64 99 Mechanical Ventilator 50 09/21/16 00:06 82 16 45 09/21/16 00:00 67 09/21/16 00:00 50 09/21/16 00:00 97.5 65 12 100/61 100 Mechanical Ventilator 50 09/20/16 23:00 74 14 114/68 99 Mechanical Ventilator 50 09/20/16 22:00 61 11 115/71 100 Mechanical Ventilator 50 09/20/16 21:40 89 16 45 09/20/16 21:10 97.8 09/20/16 21:00 68 14 116/57 100 Mechanical Ventilator 50 09/20/16 20:00 63 8/14/17 20:00 97.4 70 14 113/65 99 Mechanical Ventilator 50 09/20/16 20:00 50 09/20/16 19:32 80 16 45 09/20/16 19:28 97.8 09/20/16 19:00 75 16 109/68 100 Mechanical Ventilator 50 09/20/16 18:00 75 16 123/35 100 Mechanical Ventilator 50 09/20/16 17:00 74 16 122/62 100 Mechanical Ventilator 50 09/20/16 16:36 82 16 45 09/20/16 16:00 97.8 76 16 120/93 100 Mechanical Ventilator 50 09/20/16 16:00 76 09/20/16 15:07 84 16 50 09/20/16 15:00 79 16 127/99 100 Mechanical Ventilator 50 09/20/16 14:09 50 09/20/16 14:08 75 09/20/16 14:06 77 16 Mechanical Ventilator 09/20/16 14:01 77 16 50 09/20/16 14:00 74 16 125/84 100 Mechanical Ventilator 50 09/20/16 13:37 50 09/20/16 13:35 97.0 76 15 129/76 100 Mechanical Ventilator 50 09/20/16 13:25 79 19 119/78 100 Mechanical Ventilator 50 09/20/16 13:20 72 12 130/73 100 Mechanical Ventilator 50 09/20/16 13:07 74 14 96 09/20/16 13:05 75 18 130/73 95 Mechanical Ventilator 50 09/20/16 13:00 72 16 125/53 94 Mechanical Ventilator 50 09/20/16 12:55 79 09/20/16 12:55 50 09/20/16 12:54 97.0 79 13 112/59 96 Mechanical Ventilator 50 09/20/16 08:10 77 22 99 09/20/16 08:10 97 Bi-pap 12.0 55 09/20/16 08:10 Bi-pap 12.0 55 09/20/16 08:00 93 09/20/16 08:00 97.8 93 20 109/59 99 Bi-pap 6.0 09/20/16 08:00 15.0 Status: awake Condition: critical HEENT: atraumatic Neck: full ROM Lungs: chest wall tender Heart: HR/BP stable, regular Abdomen: soft, non-tender Extremities: no C/C/E, edema Decubiti: stage Critical Care - Subjective ROS Limited/Unobtainable: Yes ICU Day: 2 Intubation Day: 2 Interval Events: transferred to ICU after tracheostomy FI02: 50 Vent Support Breath Rate: 15 Vent Support Mode: AC Vent Tidal Volume: 500 Sputum Amount: Small PIP: 46 I&O: Intake and Output 09/20/16 09/21/16 19:00 07:00 Intake Total 760 ml 1232.5 ml Output Total 315 ml Balance 445 ml 1232.5 ml IV Total 760 ml 1232.5 ml Output Urine Total 300 ml Estimated Blood Loss 15 ml # Voids 100 245 CXR: clear Labs: Laboratory Tests Test 09/21/16 03:55 White Blood Count 4.7 K/UL (4.8-10.8) L Red Blood Count 2.99 M/UL (4.20-5.40) L Hemoglobin 9.0 G/DL (12.0-16.0) L Hematocrit 28.8 % (37.0-47.0) L Mean Corpuscular Volume 96 FL (80-99) Mean Corpuscular Hemoglobin 30.2 PG (27.0-31.0) Mean Corpuscular Hemoglobin Concent 31.3 G/DL (32.0-36.0) L Red Cell Distribution Width 14.7 % (11.6-14.8) Platelet Count 205 K/UL (150-450) Mean Platelet Volume 5.3 FL (6.5-10.1) L Neutrophils (%) (Auto) 72.2 % (45.0-75.0) Lymphocytes (%) (Auto) 13.9 % (20.0-45.0) L Monocytes (%) (Auto) 8.2 % (1.0-10.0) Eosinophils (%) (Auto) 3.7 % (0.0-3.0) H Basophils (%) (Auto) 2.0 % (0.0-2.0) Sodium Level 146 mEQ/L (135-145) H Potassium Level 5.1 mEQ/L (3.4-4.9) H Chloride Level 96 mEQ/L (98-107) L Carbon Dioxide Level 28 mEQ/L (20-30) Anion Gap 22 (5-15) H Blood Urea Nitrogen 70 mg/dL (7-23) H Creatinine 2.8 mg/dL (0.5-0.9) H Estimat Glomerular Filtration Rate mL/min (>60) Glucose Level 117 mg/dL (74-106) H Calcium Level 9.1 mg/dL (8.6-10.2) Phosphorus Level 4.5 mg/dL (2.5-4.8) Magnesium Level 2.1 mg/dL (1.7-2.5) Total Bilirubin 0.2 mg/dL (0.0-1.2) Aspartate Amino Transf (AST/SGOT) 29 U/L (5-40) Alanine Aminotransferase (ALT/SGPT) 5 U/L (3-33) Alkaline Phosphatase 59 U/L (35-104) Total Protein 7.5 g/dL (6.6-8.7) Albumin 3.3 g/dL (3.5-5.2) L Globulin 4.2 g/dL Albumin/Globulin Ratio 0.7 (1.0-2.7) L ARASH MIRANDA Sep 21, 2016 07:46
[2016-09-21] MEDS: Revatio 20mg tab ORAL SCH ×3 (08:48→17:05)
[2016-09-21] MEDS: Miralax 17gm pkt ORAL SCH (08:48)
[2016-09-21] MEDS: Ketorolac 30mg Inj IV PRN (09:27)
[2016-09-21] MEDS: Nystatin Powder 100,000 units/gm 15gm TOPIC SCH ×3 (09:27→17:05)
[2016-09-21] MEDS: Heparin 5000 units/ml inj SUBQ SCH ×2 (09:31→20:26)
[2016-09-21 09:44] LABS: ABG ALLEN TEST POSITIVE; ABG BASE EXCESS 13.8; ABG PCO2 50.1 mmHg (35.0-45.0)
--- NOTE | 2016-09-21 10:49 | Infectious Diseases Prog Note ---
Assessment/Plan Assessment/Plan A: E. coli UTI GI bleeding Hypercapnic respiratory failure Acute renal failure, CKD Anemia Morbid obesity DM P: observe off antibiotic Subjective ROS Limited/Unobtainable: Yes HEENT: Reports: other - pain, discomfort in tracheostomy site Respiratory: Reports: other - had tracheostomy yesterday, intubated in ICU Allergies: Coded Allergies: AMOXICILLIN (Verified Allergy, Mild, RASH, 12/25/09) MORPHINE (Unverified Allergy, Unknown, 09/06/16) PENICILLINS (Unverified Allergy, Unknown, 04/06/16) Objective Vital Signs Last 24 Hour Vital Signs Date Time Temp Pulse Resp B/P Pulse Ox O2 Delivery O2 Flow Rate FiO2 09/21/16 09:27 74 15 45 09/21/16 09:00 74 17 140/84 100 Mechanical Ventilator 50 09/21/16 08:19 75 15 45 09/21/16 08:00 78 09/21/16 08:00 50 09/21/16 08:00 97.8 72 15 128/60 100 Mechanical Ventilator 50 09/21/16 07:44 72 15 100 09/21/16 07:00 72 15 126/68 100 Mechanical Ventilator 50 09/21/16 06:17 97.8 09/21/16 06:00 71 17 125/60 100 Mechanical Ventilator 50 09/21/16 05:30 69 15 45 09/21/16 05:18 97.8 09/21/16 05:00 72 16 110/72 99 Mechanical Ventilator 50 09/21/16 04:01 76 15 45 09/21/16 04:00 97.8 84 17 118/75 100 Mechanical Ventilator 50 09/21/16 04:00 95 09/21/16 04:00 50 09/21/16 03:00 68 15 110/72 99 Mechanical Ventilator 50 09/21/16 02:00 65 14 108/71 98 Mechanical Ventilator 50 09/21/16 01:29 63 15 45 09/21/16 01:00 64 15 102/64 99 Mechanical Ventilator 50 09/21/16 00:06 82 16 45 09/21/16 00:00 67 09/21/16 00:00 50 09/21/16 00:00 97.5 65 12 100/61 100 Mechanical Ventilator 50 09/20/16 23:00 74 14 114/68 99 Mechanical Ventilator 50 09/20/16 22:00 61 11 115/71 100 Mechanical Ventilator 50 09/20/16 21:40 89 16 45 09/20/16 21:10 97.8 09/20/16 21:00 68 14 116/57 100 Mechanical Ventilator 50 09/20/16 20:00 63 09/20/16 20:00 97.4 70 14 113/65 99 Mechanical Ventilator 50 09/20/16 20:00 50 09/20/16 19:32 80 16 45 09/20/16 19:28 97.8 09/20/16 19:00 75 16 109/68 100 Mechanical Ventilator 50 09/20/16 18:00 75 16 123/35 100 Mechanical Ventilator 50 09/20/16 17:00 74 16 122/62 100 Mechanical Ventilator 50 09/20/16 16:36 82 16 45 09/20/16 16:00 97.8 76 16 120/93 100 Mechanical Ventilator 50 09/20/16 16:00 76 09/20/16 15:07 84 16 50 09/20/16 15:00 79 16 127/99 100 Mechanical Ventilator 50 09/20/16 14:09 50 09/20/16 14:08 75 09/20/16 14:06 77 16 Mechanical Ventilator 09/20/16 14:01 77 16 50 09/20/16 14:00 74 16 125/84 100 Mechanical Ventilator 50 09/20/16 13:37 50 09/20/16 13:35 97.0 76 15 129/76 100 Mechanical Ventilator 50 09/20/16 13:25 79 19 119/78 100 Mechanical Ventilator 50 09/20/16 13:20 72 12 130/73 100 Mechanical Ventilator 50 09/20/16 13:07 74 14 96 09/20/16 13:05 75 18 130/73 95 Mechanical Ventilator 50 09/20/16 13:00 72 16 125/53 94 Mechanical Ventilator 50 09/20/16 12:55 79 09/20/16 12:55 50 09/20/16 12:54 97.0 79 13 112/59 96 Mechanical Ventilator 50 Height (Feet): 5 Height (Inches): 4.00 Weight (Pounds): 345 HEENT: status post trach Respiratory/Chest: other - on ventilator, few rhonchi Cardiovascular: normal rate Abdomen: soft, non tender Extremities: other - edema of legs Neurologic/Psychiatric: alert, oriented x 3, responsive Laboratory Tests Test 09/21/16 03:55 09/21/16 04:00 White Blood Count 4.7 K/UL (4.8-10.8) L Red Blood Count 2.99 M/UL (4.20-5.40) L Hemoglobin 9.0 G/DL (12.0-16.0) L Hematocrit 28.8 % (37.0-47.0) L Mean Corpuscular Volume 96 FL (80-99) Mean Corpuscular Hemoglobin 30.2 PG (27.0-31.0) Mean Corpuscular Hemoglobin Concent 31.3 G/DL (32.0-36.0) L Red Cell Distribution Width 14.7 % (11.6-14.8) Platelet Count 205 K/UL (150-450) Mean Platelet Volume 5.3 FL (6.5-10.1) L Neutrophils (%) (Auto) 72.2 % (45.0-75.0) Lymphocytes (%) (Auto) 13.9 % (20.0-45.0) L Monocytes (%) (Auto) 8.2 % (1.0-10.0) Eosinophils (%) (Auto) 3.7 % (0.0-3.0) H Basophils (%) (Auto) 2.0 % (0.0-2.0) Sodium Level 146 mEQ/L (135-145) H Potassium Level 5.1 mEQ/L (3.4-4.9) H Chloride Level 96 mEQ/L (98-107) L Carbon Dioxide Level 28 mEQ/L (20-30) Anion Gap 22 (5-15) H Blood Urea Nitrogen 70 mg/dL (7-23) H Creatinine 2.8 mg/dL (0.5-0.9) H Estimat Glomerular Filtration Rate mL/min (>60) Glucose Level 117 mg/dL (74-106) H Calcium Level 9.1 mg/dL (8.6-10.2) Phosphorus Level 4.5 mg/dL (2.5-4.8) Magnesium Level 2.1 mg/dL (1.7-2.5) Total Bilirubin 0.2 mg/dL (0.0-1.2) Aspartate Amino Transf (AST/SGOT) 29 U/L (5-40) Alanine Aminotransferase (ALT/SGPT) 5 U/L (3-33) Alkaline Phosphatase 59 U/L (35-104) Total Protein 7.5 g/dL (6.6-8.7) Albumin 3.3 g/dL (3.5-5.2) L Globulin 4.2 g/dL Albumin/Globulin Ratio 0.7 (1.0-2.7) L Arterial Blood pH 7.503 (7.350-7.450) Arterial Blood Partial Pressure CO2 50.1 mmHg (35.0-45.0) H Arterial Blood Partial Pressure O2 157.3 mmHg (75.0-100.0) H Arterial Blood HCO3 38.5 mmol/L (22.0-26.0) H Arterial Blood Oxygen Saturation 98.7 % (92.0-98.0) H Arterial Blood Base Excess 13.8 Mike Test Positive Current Medications Medications (Trade) Dose Ordered Sig/Kalyn Route PRN Reason Start Time Stop Time Status Last Admin Dose Admin Acetaminophen (OFIRMEV IV (Non formulary)) 100 ml @ 400 mls/hr Q8HR IV 09/20/16 21:00 09/21/16 22:14 09/21/16 05:18 Acetaminophen (Tylenol) 650 mg Q4H PRN ORAL T>100.5 09/13/16 18:30 10/13/16 18:29 09/15/16 15:49 Dextrose (Dextrose 50%) STAT PRN IV Hypoglycemia 09/13/16 18:15 10/13/16 18:14 Epoetin Santos (Procrit (for ESRD on dialysis)) 7,000 units TUE-TUE-TUE SUBQ 09/15/16 21:00 10/15/16 20:59 09/20/16 21:10 Esomeprazole Sodium (Nexium I.v.) 40 mg QHS IVP 09/20/16 22:00 10/20/16 21:59 09/20/16 21:10 Folic Acid (Folate) 2 mg DAILY ORAL 09/14/16 09:00 10/14/16 08:59 09/19/16 08:31 Heparin Sodium (Porcine) (Heparin 5000 units/ml) 5,000 units EVERY 12 HOURS SUBQ 09/13/16 21:00 10/13/16 20:59 09/21/16 09:31 Ketorolac Tromethamine 15 mg 15 mg Q6H PRN IV Severe Pain (Pain Scale 7-10) 09/20/16 18:30 09/25/16 18:29 09/21/16 09:27 Nystatin (Nystop Powder) 1 applic THREE TIMES A DAY TOPIC 09/13/16 18:00 10/13/16 17:59 09/21/16 09:27 Ondansetron HCl (Zofran) 4 mg Q6H PRN IVP Nausea & Vomiting 09/13/16 18:30 10/13/16 18:29 09/20/16 14:50 Polyethylene Glycol (Miralax) 17 gm DAILY ORAL 09/14/16 09:00 10/14/16 08:59 09/19/16 08:31 Polyethylene Glycol (Miralax) 17 gm DAILYPRN PRN ORAL Constipation 09/13/16 18:30 10/13/16 18:29 09/15/16 01:49 Pravastatin Sodium (Pravachol) 20 mg BEDTIME ORAL 09/13/16 21:00 10/13/16 20:59 09/19/16 21:22 Sevelamer Carbonate 1600 mg 1,600 mg THREE TIMES A DAY ORAL 09/15/16 13:00 10/15/16 12:59 09/19/16 17:16 Sildenafil Citrate (Revatio) 20 mg THREE TIMES A DAY ORAL 09/21/16 09:00 10/21/16 08:59 Sodium Chloride (0.45% NS 1000ml) 1,000 ml @ 75 mls/hr [id number] IV 09/20/16 11:00 10/20/16 10:59 09/21/16 00:51 CARY ESTES Sep 21, 2016 10:49
--- NOTE | 2016-09-21 10:58 | General Progress Note ---
Progress Note Progress Note Surgery: patient seen and examined at bedside. looks much better today. able to converse with pen and paper. no SOB. respiratory improved. ABG improving. trach wound clean and dry. trach functional okay to start oral feeds today will need this trach for 2-3 weeks then can replace with fenestrated trach to allow speech. David Harman Sep 21, 2016 10:58
--- NOTE | 2016-09-21 11:58 | Diagnostic Imaging Report ---
Indication: DYSPNEA Technique: One view of the chest Comparison: 09/20/2016 Findings: Patient body habitus limits exam. Tracheostomy remains. The heart remains enlarged. No definite infiltrates Impression: Very limited exam. No definite acute process
--- NOTE | 2016-09-21 12:46 | General Progress Note ---
Assessment/Plan Status: stable Status Narrative Cr lower Assessment/Plan CKD- and acute renal failure Acute respiratory failure High K Obese COPD , rising Co2 CHF, Diastolic MINA UTI Anemia GI Bleed, GI bleeding At Fib Pulm HTN Low B12 Plan; Trach 09/20- change IV- adjust meds per order 24 h Urine CrCl and Protein- ordered ( CrCl 12) Optimize cardiac status- Monitor renal parameters and lytes- Avoid nephrotoxics B12 SQ- PO Folate Subjective ROS Limited/Unobtainable: No Constitutional: Reports: malaise Allergies: Coded Allergies: AMOXICILLIN (Verified Allergy, Mild, RASH, 12/25/09) MORPHINE (Unverified Allergy, Unknown, 09/06/16) PENICILLINS (Unverified Allergy, Unknown, 04/06/16) Objective Last 24 Hour Vital Signs Date Time Temp Pulse Resp B/P Pulse Ox O2 Delivery O2 Flow Rate FiO2 09/21/16 12:00 50 09/21/16 11:08 79 17 45 09/21/16 11:00 75 17 123/65 97 Mechanical Ventilator 50 09/21/16 10:00 75 16 136/71 99 Mechanical Ventilator 50 09/21/16 09:27 74 15 45 09/21/16 09:00 74 17 140/84 100 Mechanical Ventilator 50 09/21/16 08:19 75 15 45 09/21/16 08:00 78 09/21/16 08:00 50 09/21/16 08:00 97.8 72 15 128/60 100 Mechanical Ventilator 50 09/21/16 07:44 72 15 100 09/21/16 07:00 72 15 126/68 100 Mechanical Ventilator 50 09/21/16 06:17 97.8 09/21/16 06:00 71 17 125/60 100 Mechanical Ventilator 50 09/21/16 05:30 69 15 45 09/21/16 05:18 97.8 09/21/16 05:00 72 16 110/72 99 Mechanical Ventilator 50 09/21/16 04:01 76 15 45 09/21/16 04:00 97.8 84 17 118/75 100 Mechanical Ventilator 50 09/21/16 04:00 95 09/21/16 04:00 50 09/21/16 03:00 68 15 110/72 99 Mechanical Ventilator 50 09/21/16 02:00 65 14 108/71 98 Mechanical Ventilator 50 09/21/16 01:29 63 15 45 8/15/17 01:00 64 15 102/64 99 Mechanical Ventilator 50 09/21/16 00:06 82 16 45 09/21/16 00:00 67 09/21/16 00:00 50 09/21/16 00:00 97.5 65 12 100/61 100 Mechanical Ventilator 50 09/20/16 23:00 74 14 114/68 99 Mechanical Ventilator 50 09/20/16 22:00 61 11 115/71 100 Mechanical Ventilator 50 09/20/16 21:40 89 16 45 09/20/16 21:10 97.8 09/20/16 21:00 68 14 116/57 100 Mechanical Ventilator 50 09/20/16 20:00 63 09/20/16 20:00 97.4 70 14 113/65 99 Mechanical Ventilator 50 09/20/16 20:00 50 09/20/16 19:32 80 16 45 09/20/16 19:28 97.8 09/20/16 19:00 75 16 109/68 100 Mechanical Ventilator 50 09/20/16 18:00 75 16 123/35 100 Mechanical Ventilator 50 09/20/16 17:00 74 16 122/62 100 Mechanical Ventilator 50 09/20/16 16:36 82 16 45 09/20/16 16:00 97.8 76 16 120/93 100 Mechanical Ventilator 50 09/20/16 16:00 76 09/20/16 15:07 84 16 50 09/20/16 15:00 79 16 127/99 100 Mechanical Ventilator 50 09/20/16 14:09 50 09/20/16 14:08 75 09/20/16 14:06 77 16 Mechanical Ventilator 09/20/16 14:01 77 16 50 09/20/16 14:00 74 16 125/84 100 Mechanical Ventilator 50 09/20/16 13:37 50 09/20/16 13:35 97.0 76 15 129/76 100 Mechanical Ventilator 50 09/20/16 13:25 79 19 119/78 100 Mechanical Ventilator 50 09/20/16 13:20 72 12 130/73 100 Mechanical Ventilator 50 09/20/16 13:07 74 14 96 09/20/16 13:05 75 18 130/73 95 Mechanical Ventilator 50 09/20/16 13:00 72 16 125/53 94 Mechanical Ventilator 50 09/20/16 12:55 79 09/20/16 12:55 50 09/20/16 12:54 97.0 79 13 112/59 96 Mechanical Ventilator 50 Intake and Output 09/20/16 09/21/16 19:00 07:00 Intake Total 760 ml 1232.5 ml Output Total 315 ml Balance 445 ml 1232.5 ml IV Total 760 ml 1232.5 ml Output Urine Total 300 ml Estimated Blood Loss 15 ml # Voids 100 245 Laboratory Tests 09/21/16 03:55: White Blood Count 4.7L, Red Blood Count 2.99L, Hemoglobin 9.0L, Hematocrit 28.8L , Mean Corpuscular Volume 96, Mean Corpuscular Hemoglobin 30.2, Mean Corpuscular Hemoglobin Concent 31.3L, Red Cell Distribution Width 14.7, Platelet Count 205, Mean Platelet Volume 5.3L, Neutrophils (%) (Auto) 72.2, Lymphocytes (%) (Auto) 13.9L, Monocytes (%) (Auto) 8.2, Eosinophils (%) (Auto) 3.7H, Basophils (%) (Auto) 2.0, Sodium Level 146H, Potassium Level 5.1H, Chloride Level 96L, Carbon Dioxide Level 28, Anion Gap 22H, Blood Urea Nitrogen 70H, Creatinine 2.8H, Estimat Glomerular Filtration Rate , Glucose Level 117H, Calcium Level 9.1, Phosphorus Level 4.5, Magnesium Level 2.1, Total Bilirubin 0.2, Aspartate Amino Transf (AST/SGOT) 29, Alanine Aminotransferase (ALT/SGPT) 5 , Alkaline Phosphatase 59, Total Protein 7.5, Albumin 3.3L, Globulin 4.2, Albumin/Globulin Ratio 0.7L 09/21/16 04:00: Arterial Blood pH 7.503H, Arterial Blood Partial Pressure CO2 50.1H, Arterial Blood Partial Pressure O2 157.3H, Arterial Blood HCO3 38.5H, Arterial Blood Oxygen Saturation 98.7H, Arterial Blood Base Excess 13.8, Mike Test Positive Height (Feet): 5 Height (Inches): 4.00 Weight (Pounds): 345 EENT: other - trach++ Cardiovascular: regular rhythm Respiratory/Chest: decreased breath sounds Abdomen: soft, other - obese Objective no change COURTNEY LOPEZ Sep 21, 2016 12:46
--- NOTE | 2016-09-21 13:43 | Cardiology Progress Note ---
Assessment/Plan Assessment/Plan 1. Coffee-ground emesis. 2. Anemia, worsened, chronic. 3. Gastrointestinal bleed. 4. Permanent atrial fibrillation. 5. History of pulmonary hypertension of significant degree, treated with sildenafil. 6. Systemic hypertension. 7. Chronic renal insufficiency. 8. Diabetes mellitus 9. respiratory acidosis 10. hypotension 11. diastolic left heart failure 12. core pulmonle hgb noted low stable bp seem borderliene off eliquis for now tele noted afib vr ok back on sindeniafil bp seem ok diurtics as bp allow wean as possible Subjective ROS Limited/Unobtainable: Yes Subjective on vent Objective Last 24 Hour Vital Signs Date Time Temp Pulse Resp B/P Pulse Ox O2 Delivery O2 Flow Rate FiO2 09/21/16 13:34 98.0 09/21/16 13:13 59 15 45 09/21/16 12:00 98.0 72 15 117/60 100 Mechanical Ventilator 50 09/21/16 12:00 64 09/21/16 12:00 50 09/21/16 11:08 79 17 45 09/21/16 11:00 75 17 123/65 97 Mechanical Ventilator 50 09/21/16 10:00 75 16 136/71 99 Mechanical Ventilator 50 09/21/16 09:27 74 15 45 09/21/16 09:00 74 17 140/84 100 Mechanical Ventilator 50 09/21/16 08:19 75 15 45 09/21/16 08:00 78 09/21/16 08:00 50 09/21/16 08:00 97.8 72 15 128/60 100 Mechanical Ventilator 50 09/21/16 07:44 72 15 100 09/21/16 07:00 72 15 126/68 100 Mechanical Ventilator 50 09/21/16 06:17 97.8 09/21/16 06:00 71 17 125/60 100 Mechanical Ventilator 50 09/21/16 05:30 69 15 45 09/21/16 05:18 97.8 09/21/16 05:00 72 16 110/72 99 Mechanical Ventilator 50 09/21/16 04:01 76 15 45 09/21/16 04:00 97.8 84 17 118/75 100 Mechanical Ventilator 50 09/21/16 04:00 95 09/21/16 04:00 50 09/21/16 03:00 68 15 110/72 99 Mechanical Ventilator 50 09/21/16 02:00 65 14 108/71 98 Mechanical Ventilator 50 09/21/16 01:29 63 15 45 09/21/16 01:00 64 15 102/64 99 Mechanical Ventilator 50 09/21/16 00:06 82 16 45 09/21/16 00:00 67 09/21/16 00:00 50 09/21/16 00:00 97.5 65 12 100/61 100 Mechanical Ventilator 50 09/20/16 23:00 74 14 114/68 99 Mechanical Ventilator 50 09/20/16 22:00 61 11 115/71 100 Mechanical Ventilator 50 09/20/16 21:40 89 16 45 09/20/16 21:10 97.8 09/20/16 21:00 68 14 116/57 100 Mechanical Ventilator 50 09/20/16 20:00 63 09/20/16 20:00 97.4 70 14 113/65 99 Mechanical Ventilator 50 09/20/16 20:00 50 09/20/16 19:32 80 16 45 09/20/16 19:28 97.8 09/20/16 19:00 75 16 109/68 100 Mechanical Ventilator 50 09/20/16 18:00 75 16 123/35 100 Mechanical Ventilator 50 09/20/16 17:00 74 16 122/62 100 Mechanical Ventilator 50 09/20/16 16:36 82 16 45 09/20/16 16:00 97.8 76 16 120/93 100 Mechanical Ventilator 50 09/20/16 16:00 76 09/20/16 15:07 84 16 50 09/20/16 15:00 79 16 127/99 100 Mechanical Ventilator 50 09/20/16 14:09 50 09/20/16 14:08 75 09/20/16 14:06 77 16 Mechanical Ventilator 09/20/16 14:01 77 16 50 09/20/16 14:00 74 16 125/84 100 Mechanical Ventilator 50 General Appearance: no apparent distress, on vent Neck: other - trach Cardiovascular: irregularly irregular Respiratory/Chest: rhonchi - bilaterally Abdomen: non tender, soft Extremities: moderate edema Intake and Output 09/20/16 09/21/16 19:00 07:00 Intake Total 760 ml 1232.5 ml Output Total 315 ml Balance 445 ml 1232.5 ml IV Total 760 ml 1232.5 ml Output Urine Total 300 ml Estimated Blood Loss 15 ml # Voids 100 245 Laboratory Tests Test 09/21/16 03:55 09/21/16 04:00 White Blood Count 4.7 K/UL (4.8-10.8) L Red Blood Count 2.99 M/UL (4.20-5.40) L Hemoglobin 9.0 G/DL (12.0-16.0) L Hematocrit 28.8 % (37.0-47.0) L Mean Corpuscular Volume 96 FL (80-99) Mean Corpuscular Hemoglobin 30.2 PG (27.0-31.0) Mean Corpuscular Hemoglobin Concent 31.3 G/DL (32.0-36.0) L Red Cell Distribution Width 14.7 % (11.6-14.8) Platelet Count 205 K/UL (150-450) Mean Platelet Volume 5.3 FL (6.5-10.1) L Neutrophils (%) (Auto) 72.2 % (45.0-75.0) Lymphocytes (%) (Auto) 13.9 % (20.0-45.0) L Monocytes (%) (Auto) 8.2 % (1.0-10.0) Eosinophils (%) (Auto) 3.7 % (0.0-3.0) H Basophils (%) (Auto) 2.0 % (0.0-2.0) Sodium Level 146 mEQ/L (135-145) H Potassium Level 5.1 mEQ/L (3.4-4.9) H Chloride Level 96 mEQ/L (98-107) L Carbon Dioxide Level 28 mEQ/L (20-30) Anion Gap 22 (5-15) H Blood Urea Nitrogen 70 mg/dL (7-23) H Creatinine 2.8 mg/dL (0.5-0.9) H Estimat Glomerular Filtration Rate mL/min (>60) Glucose Level 117 mg/dL (74-106) H Calcium Level 9.1 mg/dL (8.6-10.2) Phosphorus Level 4.5 mg/dL (2.5-4.8) Magnesium Level 2.1 mg/dL (1.7-2.5) Total Bilirubin 0.2 mg/dL (0.0-1.2) Aspartate Amino Transf (AST/SGOT) 29 U/L (5-40) Alanine Aminotransferase (ALT/SGPT) 5 U/L (3-33) Alkaline Phosphatase 59 U/L (35-104) Total Protein 7.5 g/dL (6.6-8.7) Albumin 3.3 g/dL (3.5-5.2) L Globulin 4.2 g/dL Albumin/Globulin Ratio 0.7 (1.0-2.7) L Arterial Blood pH 7.503 (7.350-7.450) Arterial Blood Partial Pressure CO2 50.1 mmHg (35.0-45.0) H Arterial Blood Partial Pressure O2 157.3 mmHg (75.0-100.0) H Arterial Blood HCO3 38.5 mmol/L (22.0-26.0) H Arterial Blood Oxygen Saturation 98.7 % (92.0-98.0) H Arterial Blood Base Excess 13.8 Mike Test Positive BRIANA TELLES Sep 21, 2016 13:43
[2016-09-21] MEDS ORDERED: 1/2 NS 1000ml IV ONE (15:20)
--- NOTE | 2016-09-21 15:56 | General Progress Note ---
Assessment/Plan Status: stable, progressing Subjective Constitutional: Reports: malaise, weakness Neurologic/Psychiatric: Reports: anxiety, emotional problems Allergies: Coded Allergies: AMOXICILLIN (Verified Allergy, Mild, RASH, 12/25/09) MORPHINE (Unverified Allergy, Unknown, 09/06/16) PENICILLINS (Unverified Allergy, Unknown, 04/06/16) Subjective communicate via writing more alert Objective Last 24 Hour Vital Signs Date Time Temp Pulse Resp B/P Pulse Ox O2 Delivery O2 Flow Rate FiO2 09/21/16 15:00 65 17 124/68 97 Mechanical Ventilator 50 09/21/16 14:33 98.0 09/21/16 14:00 68 17 116/57 97 Mechanical Ventilator 50 09/21/16 13:34 98.0 09/21/16 13:13 59 15 45 09/21/16 13:00 60 17 118/54 97 Mechanical Ventilator 50 09/21/16 12:00 98.0 72 15 117/60 100 Mechanical Ventilator 50 09/21/16 12:00 64 09/21/16 12:00 50 09/21/16 11:08 79 17 45 09/21/16 11:00 75 17 123/65 97 Mechanical Ventilator 50 09/21/16 10:00 75 16 136/71 99 Mechanical Ventilator 50 09/21/16 09:27 74 15 45 09/21/16 09:00 74 17 140/84 100 Mechanical Ventilator 50 09/21/16 08:19 75 15 45 09/21/16 08:00 78 09/21/16 08:00 50 09/21/16 08:00 97.8 72 15 128/60 100 Mechanical Ventilator 50 09/21/16 07:44 72 15 100 09/21/16 07:00 72 15 126/68 100 Mechanical Ventilator 50 09/21/16 06:00 71 17 125/60 100 Mechanical Ventilator 50 09/21/16 05:30 69 15 45 09/21/16 05:18 97.8 09/21/16 05:00 72 16 110/72 99 Mechanical Ventilator 50 09/21/16 04:01 76 15 45 09/21/16 04:00 97.8 84 17 118/75 100 Mechanical Ventilator 50 09/21/16 04:00 95 09/21/16 04:00 50 09/21/16 03:00 68 15 110/72 99 Mechanical Ventilator 50 09/21/16 02:00 65 14 108/71 98 Mechanical Ventilator 50 09/21/16 01:29 63 15 45 09/21/16 01:00 64 15 102/64 99 Mechanical Ventilator 50 09/21/16 00:06 82 16 45 09/21/16 00:00 67 09/21/16 00:00 50 09/21/16 00:00 97.5 65 12 100/61 100 Mechanical Ventilator 50 09/20/16 23:00 74 14 114/68 99 Mechanical Ventilator 50 09/20/16 22:00 61 11 115/71 100 Mechanical Ventilator 50 09/20/16 21:40 89 16 45 09/20/16 21:10 97.8 09/20/16 21:00 68 14 116/57 100 Mechanical Ventilator 50 09/20/16 20:00 63 09/20/16 20:00 97.4 70 14 113/65 99 Mechanical Ventilator 50 09/20/16 20:00 50 09/20/16 19:32 80 16 45 09/20/16 19:28 97.8 09/20/16 19:00 75 16 109/68 100 Mechanical Ventilator 50 09/20/16 18:00 75 16 123/35 100 Mechanical Ventilator 50 09/20/16 17:00 74 16 122/62 100 Mechanical Ventilator 50 09/20/16 16:36 82 16 45 09/20/16 16:00 97.8 76 16 120/93 100 Mechanical Ventilator 50 09/20/16 16:00 76 Intake and Output 09/20/16 09/21/16 19:00 07:00 Intake Total 760 ml 1232.5 ml Output Total 315 ml Balance 445 ml 1232.5 ml IV Total 760 ml 1232.5 ml Output Urine Total 300 ml Estimated Blood Loss 15 ml # Voids 100 245 Laboratory Tests 09/21/16 03:55: White Blood Count 4.7L, Red Blood Count 2.99L, Hemoglobin 9.0L, Hematocrit 28.8L , Mean Corpuscular Volume 96, Mean Corpuscular Hemoglobin 30.2, Mean Corpuscular Hemoglobin Concent 31.3L, Red Cell Distribution Width 14.7, Platelet Count 205, Mean Platelet Volume 5.3L, Neutrophils (%) (Auto) 72.2, Lymphocytes (%) (Auto) 13.9L, Monocytes (%) (Auto) 8.2, Eosinophils (%) (Auto) 3.7H, Basophils (%) (Auto) 2.0, Sodium Level 146H, Potassium Level 5.1H, Chloride Level 96L, Carbon Dioxide Level 28, Anion Gap 22H, Blood Urea Nitrogen 70H, Creatinine 2.8H, Estimat Glomerular Filtration Rate , Glucose Level 117H, Calcium Level 9.1, Phosphorus Level 4.5, Magnesium Level 2.1, Total Bilirubin 0.2, Aspartate Amino Transf (AST/SGOT) 29, Alanine Aminotransferase (ALT/SGPT) 5 , Alkaline Phosphatase 59, Total Protein 7.5, Albumin 3.3L, Globulin 4.2, Albumin/Globulin Ratio 0.7L 09/21/16 04:00: Arterial Blood pH 7.503H, Arterial Blood Partial Pressure CO2 50.1H, Arterial Blood Partial Pressure O2 157.3H, Arterial Blood HCO3 38.5H, Arterial Blood Oxygen Saturation 98.7H, Arterial Blood Base Excess 13.8, Mike Test Positive Height (Feet): 5 Height (Inches): 4.00 Weight (Pounds): 345 General Appearance: no apparent distress, alert, morbidly obese Neurologic: alert, responsive, disoriented, depressed affect Eda Pena M.D. Sep 21, 2016 15:56
[2016-09-21] MEDS ORDERED: Ketorolac 30mg Inj IV PRN (19:00)
--- NOTE | 2016-09-21 20:37 | General Progress Note ---
Assessment/Plan Assessment/Plan Assessment - UGIB - resolved - Anemia-Last EGD/Colon 05/2014 (duodenal AVM- cauterized, mild diverticulosis) - Chronic hypercapnic resp failure - awaiting trach - Renal failure - Morbid obesity - CHF - atrial fibrillation Recommendations - tach care - check swallow function - Rx empirically with H2B - Monitor labs - Elevate HOB - PO as tolerated Subjective Allergies: Coded Allergies: AMOXICILLIN (Verified Allergy, Mild, RASH, 12/25/09) MORPHINE (Unverified Allergy, Unknown, 09/06/16) PENICILLINS (Unverified Allergy, Unknown, 04/06/16) Subjective POD #1 s/p trach smiling , seen in ICU Objective Last 24 Hour Vital Signs Date Time Temp Pulse Resp B/P Pulse Ox O2 Delivery O2 Flow Rate FiO2 09/21/16 19:27 74 15 50 09/21/16 19:00 73 15 130/74 97 Mechanical Ventilator 50 09/21/16 18:00 98 15 130/68 97 Mechanical Ventilator 50 09/21/16 17:26 72 15 45 09/21/16 17:00 67 15 113/64 97 Mechanical Ventilator 50 09/21/16 16:00 97.9 67 15 122/59 97 Mechanical Ventilator 50 09/21/16 16:00 50 09/21/16 16:00 62 09/21/16 15:03 61 15 45 09/21/16 15:00 65 17 124/68 97 Mechanical Ventilator 50 09/21/16 14:33 98.0 09/21/16 14:00 68 17 116/57 97 Mechanical Ventilator 50 09/21/16 13:34 98.0 09/21/16 13:13 59 15 45 09/21/16 13:00 60 17 118/54 97 Mechanical Ventilator 50 09/21/16 12:00 98.0 72 15 117/60 100 Mechanical Ventilator 50 09/21/16 12:00 64 09/21/16 12:00 50 09/21/16 11:08 79 17 45 09/21/16 11:00 75 17 123/65 97 Mechanical Ventilator 50 09/21/16 10:00 75 16 136/71 99 Mechanical Ventilator 50 09/21/16 09:27 74 15 45 09/21/16 09:00 74 17 140/84 100 Mechanical Ventilator 50 09/21/16 08:19 75 15 45 09/21/16 08:00 78 09/21/16 08:00 50 09/21/16 08:00 97.8 72 15 128/60 100 Mechanical Ventilator 50 09/21/16 07:44 72 15 100 09/21/16 07:00 72 15 126/68 100 Mechanical Ventilator 50 09/21/16 06:00 71 17 125/60 100 Mechanical Ventilator 50 09/21/16 05:30 69 15 45 09/21/16 05:18 97.8 09/21/16 05:00 72 16 110/72 99 Mechanical Ventilator 50 09/21/16 04:01 76 15 45 09/21/16 04:00 97.8 84 17 118/75 100 Mechanical Ventilator 50 09/21/16 04:00 95 09/21/16 04:00 50 09/21/16 03:00 68 15 110/72 99 Mechanical Ventilator 50 09/21/16 02:00 65 14 108/71 98 Mechanical Ventilator 50 09/21/16 01:29 63 15 45 09/21/16 01:00 64 15 102/64 99 Mechanical Ventilator 50 09/21/16 00:06 82 16 45 09/21/16 00:00 67 09/21/16 00:00 50 09/21/16 00:00 97.5 65 12 100/61 100 Mechanical Ventilator 50 09/20/16 23:00 74 14 114/68 99 Mechanical Ventilator 50 09/20/16 22:00 61 11 115/71 100 Mechanical Ventilator 50 09/20/16 21:40 89 16 45 09/20/16 21:10 97.8 09/20/16 21:00 68 14 116/57 100 Mechanical Ventilator 50 Intake and Output 09/20/16 09/21/16 19:00 07:00 Intake Total 760 ml 1232.5 ml Output Total 315 ml Balance 445 ml 1232.5 ml IV Total 760 ml 1232.5 ml Output Urine Total 300 ml Estimated Blood Loss 15 ml # Voids 100 245 Laboratory Tests 09/21/16 03:55: White Blood Count 4.7L, Red Blood Count 2.99L, Hemoglobin 9.0L, Hematocrit 28.8L , Mean Corpuscular Volume 96, Mean Corpuscular Hemoglobin 30.2, Mean Corpuscular Hemoglobin Concent 31.3L, Red Cell Distribution Width 14.7, Platelet Count 205, Mean Platelet Volume 5.3L, Neutrophils (%) (Auto) 72.2, Lymphocytes (%) (Auto) 13.9L, Monocytes (%) (Auto) 8.2, Eosinophils (%) (Auto) 3.7H, Basophils (%) (Auto) 2.0, Sodium Level 146H, Potassium Level 5.1H, Chloride Level 96L, Carbon Dioxide Level 28, Anion Gap 22H, Blood Urea Nitrogen 70H, Creatinine 2.8H, Estimat Glomerular Filtration Rate , Glucose Level 117H, Calcium Level 9.1, Phosphorus Level 4.5, Magnesium Level 2.1, Total Bilirubin 0.2, Aspartate Amino Transf (AST/SGOT) 29, Alanine Aminotransferase (ALT/SGPT) 5 , Alkaline Phosphatase 59, Total Protein 7.5, Albumin 3.3L, Globulin 4.2, Albumin/Globulin Ratio 0.7L 09/21/16 04:00: Arterial Blood pH 7.503H, Arterial Blood Partial Pressure CO2 50.1H, Arterial Blood Partial Pressure O2 157.3H, Arterial Blood HCO3 38.5H, Arterial Blood Oxygen Saturation 98.7H, Arterial Blood Base Excess 13.8, Mike Test Positive Height (Feet): 5 Height (Inches): 4.00 Weight (Pounds): 345 Objective Obese WW NCAT supple, s/p trach Coarse BS, ronchi RR Abd soft NT ND, obese (+) edema Neuro - responsive BRETT DALE Sep 21, 2016 20:36
--- NOTE | 2016-09-21 20:55 | General Progress Note ---
Assessment/Plan Assessment/Plan 1. Acute respiratory failure requiring BiPAP with respiratory acidosis --on continuous Bipap hs and prn, patient now on Trillogy vent -patient now out of ICU on Nasal canula -s/p Trach. POD 1, continue IV Tylenol q8 in addition to iv toradol 2. Acute gastrointestinal bleed with acute anemia requiring blood transfusion. -s/p BT 4 units, H/H stable, no more episodes of hematemesis -diet was advanced by GI currently on soft diet tolerating diet - follow Dr Rodriguez recommendations, UGI is limited study no ulcers seen, has esophageal dysmotility -continue PPI -not safe for EGD at this time 3. Acute kidney injury on chronic kidney disease. now with oliguria -stable, renal US noted - CrCl is 12 4. Hyperkalemia., resolved. 5. Acute diastolic ongestive heart failure. - lasix prn per cards - Dr Peralta cardio 6. Atrial fibrillation. - off eliquis for now, at risk for cva 7. Pulmonary hypertension. - sildanefil restarted by cardiology 8. Morbid obesity: diet and excercise when medically stable 9. Chronic obstructive pulmonary disease. continue nebulizer 10. 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 UTI Ecoli ESBL with sepsis: antibioitics per ID,finished course of Erthapenam 12. morbid obesity: diet and weight loss encouraged 13. DJD: pt/ot 14. hypotension: improved PT/OT when clinically more stable rehab placement once cleared by medical team discussed with nurse now in [place] Subjective Date patient seen: Sep 21, 2016 Allergies: Coded Allergies: AMOXICILLIN (Verified Allergy, Mild, RASH, 12/25/09) MORPHINE (Unverified Allergy, Unknown, 09/06/16) PENICILLINS (Unverified Allergy, Unknown, 04/06/16) Subjective The patient was seen and examined at bedside and all new and available data was reviewed in the patients chart. I agree with the above findings, impression and plan. (Patient seen earlier today. Signature stamp does not reflect patient encounter time.). -Manny Nolan MD Objective Last 24 Hour Vital Signs Date Time Temp Pulse Resp B/P Pulse Ox O2 Delivery O2 Flow Rate FiO2 09/21/16 20:00 97.8 78 21 135/63 99 Mechanical Ventilator 35 09/21/16 19:27 74 15 50 09/21/16 19:00 73 15 130/74 97 Mechanical Ventilator 50 09/21/16 18:00 98 15 130/68 97 Mechanical Ventilator 50 09/21/16 17:26 72 15 45 09/21/16 17:00 67 15 113/64 97 Mechanical Ventilator 50 09/21/16 16:00 97.9 67 15 122/59 97 Mechanical Ventilator 50 09/21/16 16:00 50 09/21/16 16:00 62 09/21/16 15:03 61 15 45 09/21/16 15:00 65 17 124/68 97 Mechanical Ventilator 50 09/21/16 14:33 98.0 09/21/16 14:00 68 17 116/57 97 Mechanical Ventilator 50 09/21/16 13:34 98.0 09/21/16 13:13 59 15 45 09/21/16 13:00 60 17 118/54 97 Mechanical Ventilator 50 09/21/16 12:00 98.0 72 15 117/60 100 Mechanical Ventilator 50 09/21/16 12:00 64 09/21/16 12:00 50 09/21/16 11:08 79 17 45 09/21/16 11:00 75 17 123/65 97 Mechanical Ventilator 50 09/21/16 10:00 75 16 136/71 99 Mechanical Ventilator 50 09/21/16 09:27 74 15 45 09/21/16 09:00 74 17 140/84 100 Mechanical Ventilator 50 09/21/16 08:19 75 15 45 09/21/16 08:00 78 09/21/16 08:00 50 09/21/16 08:00 97.8 72 15 128/60 100 Mechanical Ventilator 50 09/21/16 07:44 72 15 100 09/21/16 07:00 72 15 126/68 100 Mechanical Ventilator 50 09/21/16 06:00 71 17 125/60 100 Mechanical Ventilator 50 09/21/16 05:30 69 15 45 09/21/16 05:18 97.8 09/21/16 05:00 72 16 110/72 99 Mechanical Ventilator 50 09/21/16 04:01 76 15 45 09/21/16 04:00 97.8 84 17 118/75 100 Mechanical Ventilator 50 09/21/16 04:00 95 09/21/16 04:00 50 09/21/16 03:00 68 15 110/72 99 Mechanical Ventilator 50 09/21/16 02:00 65 14 108/71 98 Mechanical Ventilator 50 09/21/16 01:29 63 15 45 09/21/16 01:00 64 15 102/64 99 Mechanical Ventilator 50 09/21/16 00:06 82 16 45 09/21/16 00:00 67 09/21/16 00:00 50 09/21/16 00:00 97.5 65 12 100/61 100 Mechanical Ventilator 50 09/20/16 23:00 74 14 114/68 99 Mechanical Ventilator 50 09/20/16 22:00 61 11 115/71 100 Mechanical Ventilator 50 09/20/16 21:40 89 16 45 09/20/16 21:10 97.8 09/20/16 21:00 68 14 116/57 100 Mechanical Ventilator 50 Intake and Output 09/20/16 09/21/16 19:00 07:00 Intake Total 760 ml 1232.5 ml Output Total 315 ml Balance 445 ml 1232.5 ml IV Total 760 ml 1232.5 ml Output Urine Total 300 ml Estimated Blood Loss 15 ml # Voids 100 245 Laboratory Tests 09/21/16 03:55: White Blood Count 4.7L, Red Blood Count 2.99L, Hemoglobin 9.0L, Hematocrit 28.8L , Mean Corpuscular Volume 96, Mean Corpuscular Hemoglobin 30.2, Mean Corpuscular Hemoglobin Concent 31.3L, Red Cell Distribution Width 14.7, Platelet Count 205, Mean Platelet Volume 5.3L, Neutrophils (%) (Auto) 72.2, Lymphocytes (%) (Auto) 13.9L, Monocytes (%) (Auto) 8.2, Eosinophils (%) (Auto) 3.7H, Basophils (%) (Auto) 2.0, Sodium Level 146H, Potassium Level 5.1H, Chloride Level 96L, Carbon Dioxide Level 28, Anion Gap 22H, Blood Urea Nitrogen 70H, Creatinine 2.8H, Estimat Glomerular Filtration Rate , Glucose Level 117H, Calcium Level 9.1, Phosphorus Level 4.5, Magnesium Level 2.1, Total Bilirubin 0.2, Aspartate Amino Transf (AST/SGOT) 29, Alanine Aminotransferase (ALT/SGPT) 5 , Alkaline Phosphatase 59, Total Protein 7.5, Albumin 3.3L, Globulin 4.2, Albumin/Globulin Ratio 0.7L 09/21/16 04:00: Arterial Blood pH 7.503H, Arterial Blood Partial Pressure CO2 50.1H, Arterial Blood Partial Pressure O2 157.3H, Arterial Blood HCO3 38.5H, Arterial Blood Oxygen Saturation 98.7H, Arterial Blood Base Excess 13.8, Mike Test Positive Height (Feet): 5 Height (Inches): 4.00 Weight (Pounds): 345 General Appearance: alert, mild distress, morbidly obese EENT: PERRL/EOMI, pharynx normal Neck: non-tender, supple, pain on motion Cardiovascular: normal rate, regular rhythm, no gallop/murmur, no JVD Respiratory/Chest: chest wall non-tender, normal breath sounds, no respiratory distress Abdomen: non tender, soft, no mass Extremities: non-tender, normal inspection, no calf tenderness Edema: no edema noted Arm (L), no edema noted Arm (R), 2+ Leg (L), 2+ Leg (R), 2+ Pedal (L), 2+ Pedal (R), 2+ Generalized Edema: moderate edema 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
[2016-09-21] MEDS ORDERED: Heparin 5000 units/ml inj SUBQ SCH (21:00)
[2016-09-21] MEDS: Esomeprazole sodium 40mg vial IVP SCH (21:51)
[2016-09-21] MEDS ORDERED: Acetaminophen (Non formulary) 100 ML IV SCH (22:00)
[2016-09-22] VITALS: BP 134/71
[2016-09-22 04:00] VITALS: BP 130/70
[2016-09-22 05:37] LABS: ALANINE AMINOTRANSFERASE 5 U/L (3-33); ALBUMIN/GLOBULIN RATIO 0.6 (1.0-2.7); ANION GAP 10 (5-15); ASPARTATE AMINO TRANSFERASE 14 U/L (5-40); CALCIUM 7.8 mg/dL (8.6-10.2); CARBON DIOXIDE 32 mEQ/L (20-30); CHLORIDE 84 mEQ/L (98-107); CREATININE 2.4 mg/dL (0.5-0.9); HEMOLYSIS 17; MAGNESIUM 1.6 mg/dL (1.7-2.5); POTASSIUM 4.1 mEQ/L (3.4-4.9); SODIUM 126 mEQ/L (135-145)
[2016-09-22 05:47] LABS: MEAN CORPUSCULAR HEMOGLOBIN 29.1 PG (27.0-31.0); MEAN CORPUSCULAR HGB CONC 29.6 G/DL (32.0-36.0); MEAN CORPUSCULAR VOLUME 98 FL (80-99); MEAN PLATELET VOLUME 6.1 FL (6.5-10.1); PLATELET COUNT 162 K/UL (150-450); RED BLOOD COUNT 2.72 M/UL (4.20-5.40); WHITE BLOOD COUNT 5.5 K/UL (4.8-10.8)
[2016-09-22] MEDS: Ketorolac 30mg Inj IV PRN ×2 (07:47→13:51)
[2016-09-22 07:59] LABS: BASOPHILS % (AUTO) 0.8 % (0.0-2.0); EOSINOPHILS % (AUTO) 2.7 % (0.0-3.0); LYMPHOCYTES % (AUTO) 17.8 % (20.0-45.0); MEAN CORPUSCULAR HEMOGLOBIN 28.5 PG (27.0-31.0); MEAN CORPUSCULAR HGB CONC 30.4 G/DL (32.0-36.0); MEAN CORPUSCULAR VOLUME 94 FL (80-99); MEAN PLATELET VOLUME 5.9 FL (6.5-10.1); MONOCYTES % (AUTO) 7.1 % (1.0-10.0); NEUTROPHILS % (AUTO) 71.6 % (45.0-75.0); PLATELET COUNT 194 K/UL (150-450); RED BLOOD COUNT 3.23 M/UL (4.20-5.40); RED CELL DISTRIBUTION WIDTH 14.3 % (11.6-14.8); WHITE BLOOD COUNT 6.5 K/UL (4.8-10.8)
[2016-09-22 08:00] VITALS: BP 119/64
[2016-09-22 08:29] LABS: ANION GAP 8 (5-15); CALCIUM 10.6 mg/dL (8.6-10.2); CARBON DIOXIDE 38 mEQ/L (20-30); CHLORIDE 93 mEQ/L (98-107); CREATININE 2.8 mg/dL (0.5-0.9); HEMOLYSIS 6; POTASSIUM 4.7 mEQ/L (3.4-4.9); SODIUM 139 mEQ/L (135-145)
[2016-09-22] MEDS: Revatio 20mg tab ORAL SCH ×3 (08:33→17:28)
[2016-09-22] MEDS: Miralax 17gm pkt ORAL SCH (08:33)
[2016-09-22] MEDS: NovoLOG Insulin Flexpen SUBQ SCH ×4 (08:40→20:11)
[2016-09-22] MEDS: Heparin 5000 units/ml inj SUBQ SCH ×2 (08:41→20:11)
[2016-09-22] MEDS: Nystatin Powder 100,000 units/gm 15gm TOPIC SCH ×3 (09:20→17:28)
--- NOTE | 2016-09-22 09:24 | General Progress Note ---
Progress Note Progress Note Surgery: doing very well. much improved. comfortable. talking. no respiratory issues. labs improved. trach clean and functional. can tolerate being off vent for short periods. discomfort and skin irritation around trach sutures. trach sutures removed -speech and swallow therapy -diet as tolerated -trach care MUST have good trach collar for the next week now that trach sutures are out. by next week should have well formed tract in case trach is dislodged but until then need to be very careful. David Harman Sep 22, 2016 09:23
--- NOTE | 2016-09-22 11:18 | Pulmonology Progress Note ---
Assessment/Plan Problems: (1) Acute respiratory failure (2) CKD (chronic kidney disease) (3) Hyperkalemia (4) COPD (chronic obstructive pulmonary disease) (5) Anemia (6) MINA (obstructive sleep apnea) Assessment/Plan Respiratory: monitor respiratory rate, adjust FIO2 Cardiac: continue to monitor HR/BP Renal: F/U I&O Infectious Disease: check cultures Gastrointestinal: continue feedings/current rate, other - passed swallow study Endocrine: check TSH, check HgA1C, continue sliding scale insulin Hematologic: monitor H/H, transfuse if hgb<8.5 Neurologic: PRN Ativan, keep patient comfortable Affect: PRN ativan Prophylaxis: Protonix, Heparin Notes Reviewed: cardio, renal 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: nurses, consultants, child welfare caseworker Subjective ROS Limited/Unobtainable: No Constitutional: Reports: no symptoms HEENT: Repors: no symptoms Allergies: Coded Allergies: AMOXICILLIN (Verified Allergy, Mild, RASH, 12/25/09) MORPHINE (Unverified Allergy, Unknown, 09/06/16) PENICILLINS (Unverified Allergy, Unknown, 04/06/16) Objective Last 24 Hour Vital Signs Date Time Temp Pulse Resp B/P Pulse Ox O2 Delivery O2 Flow Rate FiO2 09/22/16 09:00 75 20 35 09/22/16 08:15 98.8 09/22/16 08:00 50 09/22/16 08:00 99.3 75 17 119/64 100 Mechanical Ventilator 35 09/22/16 08:00 77 09/22/16 07:50 73 20 35 09/22/16 05:23 69 15 50 09/22/16 04:00 50 09/22/16 04:00 98.8 67 25 130/70 100 Mechanical Ventilator 35 09/22/16 04:00 78 09/22/16 03:08 71 15 50 09/22/16 01:25 75 15 50 09/22/16 00:00 75 09/22/16 00:00 97.4 75 18 134/71 98 Mechanical Ventilator 35 09/22/16 00:00 50 09/21/16 22:30 97.8 09/21/16 21:31 97.8 09/21/16 21:22 70 15 50 09/21/16 20:00 97.8 78 21 135/63 99 Mechanical Ventilator 35 09/21/16 20:00 85 09/21/16 20:00 50 09/21/16 19:27 74 15 50 09/21/16 19:00 73 15 130/74 97 Mechanical Ventilator 50 09/21/16 18:00 98 15 130/68 97 Mechanical Ventilator 50 09/21/16 17:26 72 15 45 09/21/16 17:00 67 15 113/64 97 Mechanical Ventilator 50 09/21/16 16:00 97.9 67 15 122/59 97 Mechanical Ventilator 50 09/21/16 16:00 50 09/21/16 16:00 62 09/21/16 15:03 61 15 45 09/21/16 15:00 65 17 124/68 97 Mechanical Ventilator 50 09/21/16 14:33 98.0 09/21/16 14:00 68 17 116/57 97 Mechanical Ventilator 50 09/21/16 13:34 98.0 09/21/16 13:13 59 15 45 09/21/16 13:00 60 17 118/54 97 Mechanical Ventilator 50 09/21/16 12:00 98.0 72 15 117/60 100 Mechanical Ventilator 50 09/21/16 12:00 64 09/21/16 12:00 50 Intake and Output 09/21/16 09/22/16 19:00 07:00 Intake Total 995 ml 712 ml Output Total 285 ml Balance 995 ml 427 ml IV Total 995 ml 712 ml Output Urine Total 285 ml # Voids 350 Objective General Appearance: WD/WN HEENT: normocephalic, atraumatic Respiratory/Chest: chest wall non-tender, lungs clear Breasts: no masses Abdomen: normal bowel sounds, soft, non tender Genitourinary: normal external genitalia Extremities: no cyanosis Skin: no rash Laboratory Tests 09/22/16 03:35: White Blood Count 5.5, Red Blood Count 2.72L, Hemoglobin 7.9L, Hematocrit 26.7L , Mean Corpuscular Volume 98, Mean Corpuscular Hemoglobin 29.1, Mean Corpuscular Hemoglobin Concent 29.6L, Red Cell Distribution Width 15.0H, Platelet Count 162, Mean Platelet Volume 6.1L, Neutrophils (%) (Auto) , Lymphocytes (%) (Auto) , Monocytes (%) (Auto) , Eosinophils (%) (Auto) , Basophils (%) (Auto) , Sodium Level 126#L, Potassium Level 4.1, Chloride Level 84L, Carbon Dioxide Level 32H, Anion Gap 10, Blood Urea Nitrogen 62H, Creatinine 2.4H, Estimat Glomerular Filtration Rate , Glucose Level 629#*H, Calcium Level 7.8L, Phosphorus Level 3.0, Magnesium Level 1.6L, Total Bilirubin 0.5, Aspartate Amino Transf (AST/SGOT) 14, Alanine Aminotransferase (ALT/SGPT) 5 , Alkaline Phosphatase 56, Total Protein 6.0L, Albumin 2.4L, Globulin 3.6, Albumin/Globulin Ratio 0.6L 09/22/16 07:45: White Blood Count 6.5, Red Blood Count 3.23L, Hemoglobin 9.2L, Hematocrit 30.2L , Mean Corpuscular Volume 94, Mean Corpuscular Hemoglobin 28.5, Mean Corpuscular Hemoglobin Concent 30.4L, Red Cell Distribution Width 14.3, Platelet Count 194, Mean Platelet Volume 5.9L, Neutrophils (%) (Auto) 71.6, Lymphocytes (%) (Auto) 17.8L, Monocytes (%) (Auto) 7.1, Eosinophils (%) (Auto) 2.7, Basophils (%) (Auto) 0.8, Sodium Level 139#, Potassium Level 4.7, Chloride Level 93L, Carbon Dioxide Level 38H, Anion Gap 8, Blood Urea Nitrogen 72H, Creatinine 2.8H, Estimat Glomerular Filtration Rate , Glucose Level 101#, Calcium Level 10.6#H Current Medications Medications (Trade) Dose Ordered Sig/Kalyn Route PRN Reason Start Time Stop Time Status Last Admin Dose Admin Acetaminophen (Tylenol) 650 mg Q4H PRN ORAL T>100.5 09/21/16 22:30 10/21/16 22:29 Dextrose (D5W 1000ml) 1,000 ml @ 75 mls/hr [id number] IV 09/21/16 20:45 10/21/16 20:44 09/22/16 10:56 Dextrose (Dextrose 50%) STAT PRN IV Hypoglycemia 09/22/16 18:15 10/22/16 18:14 Epoetin Santos (Procrit (for ESRD on dialysis)) 7,000 units MON-WED-TUE SUBQ 09/22/16 21:00 10/22/16 20:59 Esomeprazole Sodium (Nexium I.v.) 40 mg QHS IVP 09/21/16 21:00 10/21/16 20:59 09/21/16 21:51 Folic Acid (Folate) 2 mg DAILY ORAL 09/22/16 09:00 10/22/16 08:59 Heparin Sodium (Porcine) (Heparin 5000 units/ml) 5,000 units EVERY 12 HOURS SUBQ 09/22/16 09:00 10/22/16 08:59 09/22/16 08:41 Insulin Aspart (NovoLOG) Q6 hours BEFORE MEALS AND HS SUBQ 09/22/16 06:30 10/22/16 06:29 Ketorolac Tromethamine (Toradol 30mg) 15 mg Q6H PRN IV Severe Pain (Pain Scale 7-10) 09/22/16 01:00 09/27/16 00:59 09/22/16 07:47 Nystatin (Nystop Powder) 1 applic THREE TIMES A DAY TOPIC 09/22/16 09:00 10/22/16 08:59 09/22/16 09:20 Ondansetron HCl (Zofran) 4 mg Q6H PRN IVP Nausea & Vomiting 09/22/16 00:30 10/22/16 00:29 Polyethylene Glycol (Miralax) 17 gm DAILY ORAL 09/22/16 09:00 10/22/16 08:59 Polyethylene Glycol (Miralax) 17 gm DAILYPRN PRN ORAL Constipation 09/22/16 18:30 10/22/16 18:29 Pravastatin Sodium (Pravachol) 20 mg BEDTIME ORAL 09/21/16 21:00 10/21/16 20:59 Sevelamer Carbonate (Renvela) 800 mg THREE TIMES A DAY ORAL 09/22/16 09:00 10/22/16 08:59 Sildenafil Citrate (Revatio) 20 mg THREE TIMES A DAY ORAL 09/22/16 09:00 10/22/16 08:59 ARASH MIRANDA Sep 22, 2016 11:18
[2016-09-22 12:00] VITALS: BP 136/82
--- NOTE | 2016-09-22 12:09 | Infectious Diseases Prog Note ---
Assessment/Plan Assessment/Plan antibiotics : none A 1. e.coli esbl UTI s/p rx 2. DM 3. renal failure 4. CHF 5. respiratory failure s/p tracheostomy P 1. continue off antibiotics Subjective ROS Limited/Unobtainable: Yes Allergies: Coded Allergies: AMOXICILLIN (Verified Allergy, Mild, RASH, 12/25/09) MORPHINE (Unverified Allergy, Unknown, 09/06/16) PENICILLINS (Unverified Allergy, Unknown, 04/06/16) Objective Vital Signs Last 24 Hour Vital Signs Date Time Temp Pulse Resp B/P Pulse Ox O2 Delivery O2 Flow Rate FiO2 09/22/16 11:15 100 18 35 09/22/16 09:00 75 20 35 09/22/16 08:15 98.8 09/22/16 08:00 50 09/22/16 08:00 99.3 75 17 119/64 100 Mechanical Ventilator 35 09/22/16 08:00 77 09/22/16 07:50 73 20 35 09/22/16 05:23 69 15 50 09/22/16 04:00 50 09/22/16 04:00 98.8 67 25 130/70 100 Mechanical Ventilator 35 09/22/16 04:00 78 09/22/16 03:08 71 15 50 09/22/16 01:25 75 15 50 09/22/16 00:00 75 09/22/16 00:00 97.4 75 18 134/71 98 Mechanical Ventilator 35 09/22/16 00:00 50 09/21/16 22:30 97.8 09/21/16 21:31 97.8 09/21/16 21:22 70 15 50 09/21/16 20:00 97.8 78 21 135/63 99 Mechanical Ventilator 35 09/21/16 20:00 85 09/21/16 20:00 50 09/21/16 19:27 74 15 50 09/21/16 19:00 73 15 130/74 97 Mechanical Ventilator 50 09/21/16 18:00 98 15 130/68 97 Mechanical Ventilator 50 09/21/16 17:26 72 15 45 09/21/16 17:00 67 15 113/64 97 Mechanical Ventilator 50 09/21/16 16:00 97.9 67 15 122/59 97 Mechanical Ventilator 50 09/21/16 16:00 50 8/15/17 16:00 62 09/21/16 15:03 61 15 45 09/21/16 15:00 65 17 124/68 97 Mechanical Ventilator 50 09/21/16 14:33 98.0 09/21/16 14:00 68 17 116/57 97 Mechanical Ventilator 50 09/21/16 13:34 98.0 09/21/16 13:13 59 15 45 09/21/16 13:00 60 17 118/54 97 Mechanical Ventilator 50 Height (Feet): 5 Height (Inches): 4.00 Weight (Pounds): 341 HEENT: status post trach Respiratory/Chest: lungs clear Cardiovascular: normal rate, regular rhythm, no gallop/murmur Abdomen: soft, non tender Extremities: other - + edema Laboratory Tests Test 09/22/16 03:35 09/22/16 07:45 White Blood Count 5.5 K/UL (4.8-10.8) 6.5 K/UL (4.8-10.8) Red Blood Count 2.72 M/UL (4.20-5.40) L 3.23 M/UL (4.20-5.40) L Hemoglobin 7.9 G/DL (12.0-16.0) L 9.2 G/DL (12.0-16.0) L Hematocrit 26.7 % (37.0-47.0) L 30.2 % (37.0-47.0) L Mean Corpuscular Volume 98 FL (80-99) 94 FL (80-99) Mean Corpuscular Hemoglobin 29.1 PG (27.0-31.0) 28.5 PG (27.0-31.0) Mean Corpuscular Hemoglobin Concent 29.6 G/DL (32.0-36.0) L 30.4 G/DL (32.0-36.0) L Red Cell Distribution Width 15.0 % (11.6-14.8) H 14.3 % (11.6-14.8) Platelet Count 162 K/UL (150-450) 194 K/UL (150-450) Mean Platelet Volume 6.1 FL (6.5-10.1) L 5.9 FL (6.5-10.1) L Neutrophils (%) (Auto) % (45.0-75.0) 71.6 % (45.0-75.0) Lymphocytes (%) (Auto) % (20.0-45.0) 17.8 % (20.0-45.0) L Monocytes (%) (Auto) % (1.0-10.0) 7.1 % (1.0-10.0) Eosinophils (%) (Auto) % (0.0-3.0) 2.7 % (0.0-3.0) Basophils (%) (Auto) % (0.0-2.0) 0.8 % (0.0-2.0) Sodium Level 126 mEQ/L (135-145) #L 139 mEQ/L (135-145) # Potassium Level 4.1 mEQ/L (3.4-4.9) 4.7 mEQ/L (3.4-4.9) Chloride Level 84 mEQ/L (98-107) L 93 mEQ/L (98-107) L Carbon Dioxide Level 32 mEQ/L (20-30) H 38 mEQ/L (20-30) H Anion Gap 10 (5-15) 8 (5-15) Blood Urea Nitrogen 62 mg/dL (7-23) H 72 mg/dL (7-23) H Creatinine 2.4 mg/dL (0.5-0.9) H 2.8 mg/dL (0.5-0.9) H Estimat Glomerular Filtration Rate mL/min (>60) mL/min (>60) Glucose Level 629 mg/dL (74-106) #*H 101 mg/dL (74-106) # Calcium Level 7.8 mg/dL (8.6-10.2) L 10.6 mg/dL (8.6-10.2) #H Phosphorus Level 3.0 mg/dL (2.5-4.8) Magnesium Level 1.6 mg/dL (1.7-2.5) L Total Bilirubin 0.5 mg/dL (0.0-1.2) Aspartate Amino Transf (AST/SGOT) 14 U/L (5-40) Alanine Aminotransferase (ALT/SGPT) 5 U/L (3-33) Alkaline Phosphatase 56 U/L (35-104) Total Protein 6.0 g/dL (6.6-8.7) L Albumin 2.4 g/dL (3.5-5.2) L Globulin 3.6 g/dL Albumin/Globulin Ratio 0.6 (1.0-2.7) L TATIANNA JONES Sep 22, 2016 12:08
--- NOTE | 2016-09-22 12:14 | Diagnostic Imaging Report ---
Indication: DYSPNEA Technique: One view of the chest Comparison: 09/21/2016 Findings: Tracheostomy is again demonstrated. Marked cardiomegaly persists. There may be small bilateral pleural effusions and and there is equivocal interstitial congestion. Impression: Umm Equivocal small bilateral pleural effusions and interstitial congestion. Correlate with clinical findings
--- NOTE | 2016-09-22 12:45 | Progress Note ---
SUBJECTIVE: The patient is doing better today. She is speaking and participating in speech and swallow therapy. The patient is more lucid. I was able to answer the questions. MENTAL STATUS EXAM: The patient is alert and oriented to time, self, place, and situation she is in. Mood is neutral. Affect is constricted. Congruent mood. Thought process is concrete. Thought content, no suicidal or homicidal ideations. ASSESSMENT: Stable. PLAN: We will continue the current medication. No medication changes at this time. Provide the patient with reality orientation and supportive therapy. Eda Pena M.D. DR: PAULETTE JOB#: [id number] CC:
--- NOTE | 2016-09-22 14:51 | General Progress Note ---
Assessment/Plan Status: stable Status Narrative Cr 2.8 Assessment/Plan CKD- and acute renal failure Acute respiratory failure High K Obese COPD , rising Co2 CHF, Diastolic MINA UTI Anemia GI Bleed, GI bleeding At Fib Pulm HTN Low B12 Plan; Trach 09/20- change IV- adjust meds per order 24 h Urine CrCl and Protein- ordered ( CrCl 12) Optimize cardiac status- Monitor renal parameters and lytes- Avoid nephrotoxics B12 SQ- PO Folate Subjective ROS Limited/Unobtainable: No Constitutional: Reports: malaise Allergies: Coded Allergies: AMOXICILLIN (Verified Allergy, Mild, RASH, 12/25/09) MORPHINE (Unverified Allergy, Unknown, 09/06/16) PENICILLINS (Unverified Allergy, Unknown, 04/06/16) Objective Last 24 Hour Vital Signs Date Time Temp Pulse Resp B/P Pulse Ox O2 Delivery O2 Flow Rate FiO2 09/22/16 14:20 97.9 09/22/16 12:30 85 18 09/22/16 12:00 50 09/22/16 12:00 85 09/22/16 12:00 97.9 109 20 136/82 96 Trach Collar 50 09/22/16 11:15 100 18 35 09/22/16 09:00 75 20 35 09/22/16 08:00 50 09/22/16 08:00 99.3 75 17 119/64 100 Mechanical Ventilator 35 09/22/16 08:00 77 09/22/16 07:50 73 20 35 09/22/16 05:23 69 15 50 09/22/16 04:00 50 09/22/16 04:00 98.8 67 25 130/70 100 Mechanical Ventilator 35 09/22/16 04:00 78 09/22/16 03:08 71 15 50 09/22/16 01:25 75 15 50 09/22/16 00:00 75 09/22/16 00:00 97.4 75 18 134/71 98 Mechanical Ventilator 35 09/22/16 00:00 50 09/21/16 22:30 97.8 09/21/16 21:31 97.8 09/21/16 21:22 70 15 50 09/21/16 20:00 97.8 78 21 135/63 99 Mechanical Ventilator 35 09/21/16 20:00 85 09/21/16 20:00 50 09/21/16 19:27 74 15 50 09/21/16 19:00 73 15 130/74 97 Mechanical Ventilator 50 09/21/16 18:00 98 15 130/68 97 Mechanical Ventilator 50 09/21/16 17:26 72 15 45 09/21/16 17:00 67 15 113/64 97 Mechanical Ventilator 50 09/21/16 16:00 97.9 67 15 122/59 97 Mechanical Ventilator 50 09/21/16 16:00 50 09/21/16 16:00 62 09/21/16 15:03 61 15 45 09/21/16 15:00 65 17 124/68 97 Mechanical Ventilator 50 Intake and Output 09/21/16 09/22/16 19:00 07:00 Intake Total 995 ml 712 ml Output Total 285 ml Balance 995 ml 427 ml IV Total 995 ml 712 ml Output Urine Total 285 ml # Voids 350 Laboratory Tests 09/22/16 03:35: White Blood Count 5.5, Red Blood Count 2.72L, Hemoglobin 7.9L, Hematocrit 26.7L , Mean Corpuscular Volume 98, Mean Corpuscular Hemoglobin 29.1, Mean Corpuscular Hemoglobin Concent 29.6L, Red Cell Distribution Width 15.0H, Platelet Count 162, Mean Platelet Volume 6.1L, Neutrophils (%) (Auto) , Lymphocytes (%) (Auto) , Monocytes (%) (Auto) , Eosinophils (%) (Auto) , Basophils (%) (Auto) , Sodium Level 126#L, Potassium Level 4.1, Chloride Level 84L, Carbon Dioxide Level 32H, Anion Gap 10, Blood Urea Nitrogen 62H, Creatinine 2.4H, Estimat Glomerular Filtration Rate , Glucose Level 629#*H, Calcium Level 7.8L, Phosphorus Level 3.0, Magnesium Level 1.6L, Total Bilirubin 0.5, Aspartate Amino Transf (AST/SGOT) 14, Alanine Aminotransferase (ALT/SGPT) 5 , Alkaline Phosphatase 56, Total Protein 6.0L, Albumin 2.4L, Globulin 3.6, Albumin/Globulin Ratio 0.6L 09/22/16 07:45: White Blood Count 6.5, Red Blood Count 3.23L, Hemoglobin 9.2L, Hematocrit 30.2L , Mean Corpuscular Volume 94, Mean Corpuscular Hemoglobin 28.5, Mean Corpuscular Hemoglobin Concent 30.4L, Red Cell Distribution Width 14.3, Platelet Count 194, Mean Platelet Volume 5.9L, Neutrophils (%) (Auto) 71.6, Lymphocytes (%) (Auto) 17.8L, Monocytes (%) (Auto) 7.1, Eosinophils (%) (Auto) 2.7, Basophils (%) (Auto) 0.8, Sodium Level 139#, Potassium Level 4.7, Chloride Level 93L, Carbon Dioxide Level 38H, Anion Gap 8, Blood Urea Nitrogen 72H, Creatinine 2.8H, Estimat Glomerular Filtration Rate , Glucose Level 101#, Calcium Level 10.6#H Height (Feet): 5 Height (Inches): 4.00 Weight (Pounds): 341 General Appearance: no apparent distress Objective no change COURTNEY LOPEZ Sep 22, 2016 14:51
[2016-09-22 16:00] VITALS: BP 102/58
--- NOTE | 2016-09-22 18:13 | Cardiology Progress Note ---
Assessment/Plan Assessment/Plan 1. Coffee-ground emesis. 2. Anemia, worsened, chronic. 3. Gastrointestinal bleed. 4. Permanent atrial fibrillation. 5. History of pulmonary hypertension of significant degree, treated with sildenafil. 6. Systemic hypertension. 7. Chronic renal insufficiency. 8. Diabetes mellitus 9. respiratory acidosis 10. hypotension 11. diastolic left heart failure 12. core pulmonle hgb noted low stable bpimproved off eliquis for now tele noted afib vr ok back on sindeniafil bp seem ok diurtics as bp allow and if ok with renal wean as possible Subjective Cardiovascular: Denies: chest pain, lightheadedness, palpitations Respiratory: Reports: shortness of breath - some Gastrointestinal/Abdominal: Denies: abdominal pain Genitourinary: Denies: burning Subjective on vent, talks with expiration Objective Last 24 Hour Vital Signs Date Time Temp Pulse Resp B/P Pulse Ox O2 Delivery O2 Flow Rate FiO2 09/22/16 17:15 80 18 35 09/22/16 16:00 75 09/22/16 16:00 50 09/22/16 16:00 99.0 72 16 102/58 99 Mechanical Ventilator 35 09/22/16 15:00 91 15 35 09/22/16 14:20 97.9 09/22/16 12:30 85 18 09/22/16 12:00 50 09/22/16 12:00 85 09/22/16 12:00 97.9 109 20 136/82 96 Trach Collar 50 09/22/16 11:15 100 18 35 09/22/16 09:00 75 20 35 09/22/16 08:00 50 09/22/16 08:00 99.3 75 17 119/64 100 Mechanical Ventilator 35 09/22/16 08:00 77 09/22/16 07:50 73 20 35 09/22/16 05:23 69 15 50 09/22/16 04:00 50 09/22/16 04:00 98.8 67 25 130/70 100 Mechanical Ventilator 35 09/22/16 04:00 78 09/22/16 03:08 71 15 50 09/22/16 01:25 75 15 50 09/22/16 00:00 75 09/22/16 00:00 97.4 75 18 134/71 98 Mechanical Ventilator 35 09/22/16 00:00 50 09/21/16 22:30 97.8 09/21/16 21:31 97.8 09/21/16 21:22 70 15 50 09/21/16 20:00 97.8 78 21 135/63 99 Mechanical Ventilator 35 09/21/16 20:00 85 09/21/16 20:00 50 09/21/16 19:27 74 15 50 09/21/16 19:00 73 15 130/74 97 Mechanical Ventilator 50 General Appearance: no apparent distress, alert, on vent, patient on isolation Neck: supple Cardiovascular: irregularly irregular Respiratory/Chest: decreased breath sounds - left base Abdomen: normal bowel sounds, non tender, soft Extremities: moderate edema Intake and Output 09/21/16 09/22/16 19:00 07:00 Intake Total 995 ml 712 ml Output Total 285 ml Balance 995 ml 427 ml IV Total 995 ml 712 ml Output Urine Total 285 ml # Voids 350 Laboratory Tests Test 09/22/16 03:35 09/22/16 07:45 White Blood Count 5.5 K/UL (4.8-10.8) 6.5 K/UL (4.8-10.8) Red Blood Count 2.72 M/UL (4.20-5.40) L 3.23 M/UL (4.20-5.40) L Hemoglobin 7.9 G/DL (12.0-16.0) L 9.2 G/DL (12.0-16.0) L Hematocrit 26.7 % (37.0-47.0) L 30.2 % (37.0-47.0) L Mean Corpuscular Volume 98 FL (80-99) 94 FL (80-99) Mean Corpuscular Hemoglobin 29.1 PG (27.0-31.0) 28.5 PG (27.0-31.0) Mean Corpuscular Hemoglobin Concent 29.6 G/DL (32.0-36.0) L 30.4 G/DL (32.0-36.0) L Red Cell Distribution Width 15.0 % (11.6-14.8) H 14.3 % (11.6-14.8) Platelet Count 162 K/UL (150-450) 194 K/UL (150-450) Mean Platelet Volume 6.1 FL (6.5-10.1) L 5.9 FL (6.5-10.1) L Neutrophils (%) (Auto) % (45.0-75.0) 71.6 % (45.0-75.0) Lymphocytes (%) (Auto) % (20.0-45.0) 17.8 % (20.0-45.0) L Monocytes (%) (Auto) % (1.0-10.0) 7.1 % (1.0-10.0) Eosinophils (%) (Auto) % (0.0-3.0) 2.7 % (0.0-3.0) Basophils (%) (Auto) % (0.0-2.0) 0.8 % (0.0-2.0) Sodium Level 126 mEQ/L (135-145) #L 139 mEQ/L (135-145) # Potassium Level 4.1 mEQ/L (3.4-4.9) 4.7 mEQ/L (3.4-4.9) Chloride Level 84 mEQ/L (98-107) L 93 mEQ/L (98-107) L Carbon Dioxide Level 32 mEQ/L (20-30) H 38 mEQ/L (20-30) H Anion Gap 10 (5-15) 8 (5-15) Blood Urea Nitrogen 62 mg/dL (7-23) H 72 mg/dL (7-23) H Creatinine 2.4 mg/dL (0.5-0.9) H 2.8 mg/dL (0.5-0.9) H Estimat Glomerular Filtration Rate mL/min (>60) mL/min (>60) Glucose Level 629 mg/dL (74-106) #*H 101 mg/dL (74-106) # Calcium Level 7.8 mg/dL (8.6-10.2) L 10.6 mg/dL (8.6-10.2) #H Phosphorus Level 3.0 mg/dL (2.5-4.8) Magnesium Level 1.6 mg/dL (1.7-2.5) L Total Bilirubin 0.5 mg/dL (0.0-1.2) Aspartate Amino Transf (AST/SGOT) 14 U/L (5-40) Alanine Aminotransferase (ALT/SGPT) 5 U/L (3-33) Alkaline Phosphatase 56 U/L (35-104) Total Protein 6.0 g/dL (6.6-8.7) L Albumin 2.4 g/dL (3.5-5.2) L Globulin 3.6 g/dL Albumin/Globulin Ratio 0.6 (1.0-2.7) L BRIANA TELLES Sep 22, 2016 18:13
[2016-09-22] MEDS ORDERED: Miralax 17gm pkt ORAL PRN (18:30)
[2016-09-22 20:00] VITALS: BP 109/60
[2016-09-22] MEDS: Esomeprazole sodium 40mg vial IVP SCH (20:08)
--- NOTE | 2016-09-22 20:30 | General Progress Note ---
Assessment/Plan Assessment/Plan 1. Acute respiratory failure requiring BiPAP with respiratory acidosis --on continuous Bipap hs and prn, patient now on Trillogy vent -patient now out of ICU on Nasal canula -s/p Trach. POD 1, continue IV Tylenol q8 will order tramadol 50 to 100 m g q6 prn as patient has tolerated this before 2. Acute gastrointestinal bleed with acute anemia requiring blood transfusion. -s/p BT 4 units, H/H stable, no more episodes of hematemesis -diet was advanced by GI currently on soft diet tolerating diet - follow Dr Rodriguez recommendations, UGI is limited study no ulcers seen, has esophageal dysmotility -continue PPI -not safe for EGD at this time 3. Acute kidney injury on chronic kidney disease. now with oliguria -stable, renal US noted - CrCl is 12 4. Hyperkalemia., resolved. 5. Acute diastolic ongestive heart failure. - lasix prn per cards - Dr Peralta cardio 6. Atrial fibrillation. - off eliquis for now, at risk for cva 7. Pulmonary hypertension. - sildanefil restarted by cardiology 8. Morbid obesity: diet and excercise when medically stable 9. Chronic obstructive pulmonary disease. continue nebulizer 10. 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 UTI Ecoli ESBL with sepsis: antibioitics per ID,finished course of Erthapenam 12. morbid obesity: diet and weight loss encouraged 13. DJD: pt/ot 14. hypotension: improved PT/OT when clinically more stable rehab placement once cleared by medical team discussed with nurse now in [place] planning for subacutre in am Subjective Date patient seen: Sep 22, 2016 Allergies: Coded Allergies: AMOXICILLIN (Verified Allergy, Mild, RASH, 12/25/09) MORPHINE (Unverified Allergy, Unknown, 09/06/16) PENICILLINS (Unverified Allergy, Unknown, 04/06/16) Subjective The patient was seen and examined at bedside and all new and available data was reviewed in the patients chart. I agree with the above findings, impression and plan. (Patient seen earlier today. Signature stamp does not reflect patient encounter time.). -Manny Nolan MD Objective Last 24 Hour Vital Signs Date Time Temp Pulse Resp B/P Pulse Ox O2 Delivery O2 Flow Rate FiO2 09/22/16 19:14 84 17 35 09/22/16 17:15 80 18 35 09/22/16 16:00 75 09/22/16 16:00 50 09/22/16 16:00 99.0 72 16 102/58 99 Mechanical Ventilator 35 09/22/16 15:00 91 15 35 09/22/16 14:20 97.9 09/22/16 12:30 85 18 09/22/16 12:00 50 09/22/16 12:00 85 09/22/16 12:00 97.9 109 20 136/82 96 Trach Collar 50 09/22/16 11:15 100 18 35 09/22/16 09:00 75 20 35 09/22/16 08:00 50 09/22/16 08:00 99.3 75 17 119/64 100 Mechanical Ventilator 35 09/22/16 08:00 77 09/22/16 07:50 73 20 35 09/22/16 05:23 69 15 50 09/22/16 04:00 50 09/22/16 04:00 98.8 67 25 130/70 100 Mechanical Ventilator 35 09/22/16 04:00 78 09/22/16 03:08 71 15 50 09/22/16 01:25 75 15 50 09/22/16 00:00 75 09/22/16 00:00 97.4 75 18 134/71 98 Mechanical Ventilator 35 09/22/16 00:00 50 09/21/16 22:30 97.8 09/21/16 21:31 97.8 09/21/16 21:22 70 15 50 Intake and Output 09/21/16 09/22/16 19:00 07:00 Intake Total 995 ml 712 ml Output Total 285 ml Balance 995 ml 427 ml IV Total 995 ml 712 ml Output Urine Total 285 ml # Voids 350 Laboratory Tests 09/22/16 03:35: White Blood Count 5.5, Red Blood Count 2.72L, Hemoglobin 7.9L, Hematocrit 26.7L , Mean Corpuscular Volume 98, Mean Corpuscular Hemoglobin 29.1, Mean Corpuscular Hemoglobin Concent 29.6L, Red Cell Distribution Width 15.0H, Platelet Count 162, Mean Platelet Volume 6.1L, Neutrophils (%) (Auto) , Lymphocytes (%) (Auto) , Monocytes (%) (Auto) , Eosinophils (%) (Auto) , Basophils (%) (Auto) , Sodium Level 126#L, Potassium Level 4.1, Chloride Level 84L, Carbon Dioxide Level 32H, Anion Gap 10, Blood Urea Nitrogen 62H, Creatinine 2.4H, Estimat Glomerular Filtration Rate , Glucose Level 629#*H, Calcium Level 7.8L, Phosphorus Level 3.0, Magnesium Level 1.6L, Total Bilirubin 0.5, Aspartate Amino Transf (AST/SGOT) 14, Alanine Aminotransferase (ALT/SGPT) 5 , Alkaline Phosphatase 56, Total Protein 6.0L, Albumin 2.4L, Globulin 3.6, Albumin/Globulin Ratio 0.6L 09/22/16 07:45: White Blood Count 6.5, Red Blood Count 3.23L, Hemoglobin 9.2L, Hematocrit 30.2L , Mean Corpuscular Volume 94, Mean Corpuscular Hemoglobin 28.5, Mean Corpuscular Hemoglobin Concent 30.4L, Red Cell Distribution Width 14.3, Platelet Count 194, Mean Platelet Volume 5.9L, Neutrophils (%) (Auto) 71.6, Lymphocytes (%) (Auto) 17.8L, Monocytes (%) (Auto) 7.1, Eosinophils (%) (Auto) 2.7, Basophils (%) (Auto) 0.8, Sodium Level 139#, Potassium Level 4.7, Chloride Level 93L, Carbon Dioxide Level 38H, Anion Gap 8, Blood Urea Nitrogen 72H, Creatinine 2.8H, Estimat Glomerular Filtration Rate , Glucose Level 101#, Calcium Level 10.6#H Height (Feet): 5 Height (Inches): 4.00 Weight (Pounds): 341 General Appearance: no apparent distress, alert EENT: PERRL/EOMI, pharynx normal Neck: normal alignment, supple, pain on motion Cardiovascular: normal rate, regular rhythm, no gallop/murmur, no JVD Respiratory/Chest: chest wall non-tender, normal breath sounds, no respiratory distress Abdomen: non tender, soft, no mass Extremities: swelling Edema: no edema noted Arm (L), no edema noted Arm (R), 1+ Leg (L), 1+ Leg (R), 1+ Pedal (L), 1+ Pedal (R), 1+ Generalized Edema: mild edema Neurologic: cooper apprentice II-XII grossly normal, oriented x 3, responsive Lymphatic: normal anterior cervical (L), normal anterior cervical (R), normal axillary (L), normal axillary (R), normal inguinal (L), normal inguinal (R), normal other, normal posterior cervical (L), normal posterior cervical (R), normal submandibular (L), normal submandibular (R), normal supraclavicular (L), normal supraclavicular (R) Manny Nolan MD Sep 22, 2016 20:30
[2016-09-22] MEDS ORDERED: Epogen (for ESRD on dialysis) SUBQ SCH (21:00)
[2016-09-22] MEDS ORDERED: traMADol 50mg tab ORAL PRN (21:00)
--- NOTE | 2016-09-22 22:03 | General Progress Note ---
Assessment/Plan Assessment/Plan Assessment - UGIB - resolved - Anemia-Last EGD/Colon 05/2014 (duodenal AVM- cauterized, mild diverticulosis) - Chronic hypercapnic resp failure - awaiting trach - Renal failure - Morbid obesity - CHF - atrial fibrillation Recommendations - tach care - check swallow function - Rx empirically with H2B - Monitor labs - Elevate HOB - PO as tolerated Subjective Allergies: Coded Allergies: AMOXICILLIN (Verified Allergy, Mild, RASH, 12/25/09) MORPHINE (Unverified Allergy, Unknown, 09/06/16) PENICILLINS (Unverified Allergy, Unknown, 04/06/16) Subjective POD #2 s/p trach frustrated about not being able talk Objective Last 24 Hour Vital Signs Date Time Temp Pulse Resp B/P Pulse Ox O2 Delivery O2 Flow Rate FiO2 09/22/16 21:14 82 18 35 09/22/16 20:00 50 09/22/16 20:00 66 09/22/16 20:00 98.9 73 16 109/60 99 Mechanical Ventilator 35 09/22/16 19:14 84 17 35 09/22/16 17:15 80 18 35 09/22/16 16:00 75 09/22/16 16:00 50 09/22/16 16:00 99.0 72 16 102/58 99 Mechanical Ventilator 35 09/22/16 15:00 91 15 35 09/22/16 14:20 97.9 09/22/16 12:30 85 18 09/22/16 12:00 50 09/22/16 12:00 85 09/22/16 12:00 97.9 109 20 136/82 96 Trach Collar 50 09/22/16 11:15 100 18 35 09/22/16 09:00 75 20 35 09/22/16 08:00 50 09/22/16 08:00 99.3 75 17 119/64 100 Mechanical Ventilator 35 09/22/16 08:00 77 09/22/16 07:50 73 20 35 09/22/16 05:23 69 15 50 09/22/16 04:00 50 09/22/16 04:00 98.8 67 25 130/70 100 Mechanical Ventilator 35 09/22/16 04:00 78 09/22/16 03:08 71 15 50 09/22/16 01:25 75 15 50 09/22/16 00:00 75 09/22/16 00:00 97.4 75 18 134/71 98 Mechanical Ventilator 35 09/22/16 00:00 50 09/21/16 22:30 97.8 Intake and Output 09/21/16 09/22/16 19:00 07:00 Intake Total 995 ml 712 ml Output Total 285 ml Balance 995 ml 427 ml IV Total 995 ml 712 ml Output Urine Total 285 ml # Voids 350 Laboratory Tests 09/22/16 03:35: White Blood Count 5.5, Red Blood Count 2.72L, Hemoglobin 7.9L, Hematocrit 26.7L , Mean Corpuscular Volume 98, Mean Corpuscular Hemoglobin 29.1, Mean Corpuscular Hemoglobin Concent 29.6L, Red Cell Distribution Width 15.0H, Platelet Count 162, Mean Platelet Volume 6.1L, Neutrophils (%) (Auto) , Lymphocytes (%) (Auto) , Monocytes (%) (Auto) , Eosinophils (%) (Auto) , Basophils (%) (Auto) , Sodium Level 126#L, Potassium Level 4.1, Chloride Level 84L, Carbon Dioxide Level 32H, Anion Gap 10, Blood Urea Nitrogen 62H, Creatinine 2.4H, Estimat Glomerular Filtration Rate , Glucose Level 629#*H, Calcium Level 7.8L, Phosphorus Level 3.0, Magnesium Level 1.6L, Total Bilirubin 0.5, Aspartate Amino Transf (AST/SGOT) 14, Alanine Aminotransferase (ALT/SGPT) 5 , Alkaline Phosphatase 56, Total Protein 6.0L, Albumin 2.4L, Globulin 3.6, Albumin/Globulin Ratio 0.6L 09/22/16 07:45: White Blood Count 6.5, Red Blood Count 3.23L, Hemoglobin 9.2L, Hematocrit 30.2L , Mean Corpuscular Volume 94, Mean Corpuscular Hemoglobin 28.5, Mean Corpuscular Hemoglobin Concent 30.4L, Red Cell Distribution Width 14.3, Platelet Count 194, Mean Platelet Volume 5.9L, Neutrophils (%) (Auto) 71.6, Lymphocytes (%) (Auto) 17.8L, Monocytes (%) (Auto) 7.1, Eosinophils (%) (Auto) 2.7, Basophils (%) (Auto) 0.8, Sodium Level 139#, Potassium Level 4.7, Chloride Level 93L, Carbon Dioxide Level 38H, Anion Gap 8, Blood Urea Nitrogen 72H, Creatinine 2.8H, Estimat Glomerular Filtration Rate , Glucose Level 101#, Calcium Level 10.6#H Height (Feet): 5 Height (Inches): 4.00 Weight (Pounds): 341 Objective Obese WW NCAT supple, s/p trach Coarse BS, ronchi RR Abd soft NT ND, obese (+) edema Neuro - responsive BRETT DALE Sep 22, 2016 22:03
[2016-09-23] VITALS: BP 112/68
[2016-09-23] MEDS: traMADol 50mg tab ORAL PRN ×3 (03:01→15:49)
[2016-09-23 04:00] VITALS: BP 116/79
[2016-09-23] MEDS: NovoLOG Insulin Flexpen SUBQ SCH ×4 (05:31→21:09)
[2016-09-23 05:59] LABS: BASOPHILS % (AUTO) 0.9 % (0.0-2.0); EOSINOPHILS % (AUTO) 2.8 % (0.0-3.0); LYMPHOCYTES % (AUTO) 17.4 % (20.0-45.0); MEAN CORPUSCULAR HEMOGLOBIN 29.5 PG (27.0-31.0); MEAN CORPUSCULAR HGB CONC 31.5 G/DL (32.0-36.0); MEAN CORPUSCULAR VOLUME 94 FL (80-99); MEAN PLATELET VOLUME 5.6 FL (6.5-10.1); PLATELET COUNT 172 K/UL (150-450); RED BLOOD COUNT 3.01 M/UL (4.20-5.40); RED CELL DISTRIBUTION WIDTH 14.5 % (11.6-14.8); WHITE BLOOD COUNT 5.9 K/UL (4.8-10.8)
[2016-09-23 06:47] LABS: ALANINE AMINOTRANSFERASE 5 U/L (3-33); ALBUMIN/GLOBULIN RATIO 0.8 (1.0-2.7); ANION GAP 11 (5-15); ASPARTATE AMINO TRANSFERASE 14 U/L (5-40); CALCIUM 8.6 mg/dL (8.6-10.2); CARBON DIOXIDE 35 mEQ/L (20-30); CHLORIDE 93 mEQ/L (98-107); CREATININE 2.9 mg/dL (0.5-0.9); CRP QUANT 9.9 mg/dL (< 0.5); HEMOLYSIS 3; MAGNESIUM 2.2 mg/dL (1.7-2.5); POTASSIUM 4.4 mEQ/L (3.4-4.9); SODIUM 139 mEQ/L (135-145); TOTAL PROTEIN 6.7 g/dL (6.6-8.7)
[2016-09-23 06:48] LABS: URIC ACID 9.8 mg/dL (3.0-7.5)
[2016-09-23 08:15] VITALS: BP 120/62
--- NOTE | 2016-09-23 08:40 | General Progress Note ---
Progress Note Progress Note Surgery: pt seen and examined at bedside. doing well. no acute events. passed swallow eval and tolerating puree diet now. trach functional and tolerating vent well. improved since trach. talking. facial wounds healing. no further surgical intervention necessary at this time trach care and management can change trach to fenestrated trach in 2 weeks can remove skin sutures in 1 week (can be done in my office or at facility she will be transferred to) okay to d/c from surgical standpoint David Harman Sep 23, 2016 08:40
[2016-09-23] MEDS: Revatio 20mg tab ORAL SCH ×3 (08:54→17:57)
[2016-09-23] MEDS: Miralax 17gm pkt ORAL SCH ×2 (08:55→08:58)
[2016-09-23] MEDS: Nystatin Powder 100,000 units/gm 15gm TOPIC SCH ×3 (08:59→17:57)
[2016-09-23] MEDS: Heparin 5000 units/ml inj SUBQ SCH ×2 (09:02→21:01)
[2016-09-23] MEDS ORDERED: RENVELA800 MG ORAL (10:58)
[2016-09-23] MEDS ORDERED: REVATIO20 MG ORAL (10:58)
[2016-09-23 11:12] VITALS: BP 115/61
--- NOTE | 2016-09-23 11:20 | General Progress Note ---
Assessment/Plan Assessment/Plan Assessment - UGIB - resolved - Anemia-Last EGD/Colon 05/2014 (duodenal AVM- cauterized, mild diverticulosis) - Chronic hypercapnic resp failure - awaiting trach - Renal failure - Morbid obesity - CHF - atrial fibrillation Recommendations - tach care - PO as tolerated - Rx empirically with PPI - Monitor labs - Elevate HOB - PO as tolerated Subjective Allergies: Coded Allergies: AMOXICILLIN (Verified Allergy, Mild, RASH, 12/25/09) MORPHINE (Unverified Allergy, Unknown, 09/06/16) PENICILLINS (Unverified Allergy, Unknown, 04/06/16) Subjective POD #[address] passed swallow eval Objective Last 24 Hour Vital Signs Date Time Temp Pulse Resp B/P Pulse Ox O2 Delivery O2 Flow Rate FiO2 09/23/16 11:12 82 19 35 09/23/16 11:12 98.4 73 20 115/61 98 Mechanical Ventilator 35 09/23/16 08:34 84 19 35 09/23/16 08:28 69 09/23/16 08:15 97.5 81 18 120/62 100 Mechanical Ventilator 35 09/23/16 07:02 73 20 35 09/23/16 05:09 85 18 35 09/23/16 04:00 98.5 75 16 116/79 100 Mechanical Ventilator 35 09/23/16 04:00 70 09/23/16 04:00 98.5 09/23/16 04:00 50 09/23/16 03:04 74 16 35 09/23/16 00:42 67 15 35 09/23/16 00:00 98.4 76 18 112/68 100 Mechanical Ventilator 35 09/23/16 00:00 66 09/23/16 00:00 50 09/22/16 23:23 69 15 35 09/22/16 21:14 82 18 35 09/22/16 20:00 50 09/22/16 20:00 66 09/22/16 20:00 98.9 73 16 109/60 99 Mechanical Ventilator 35 09/22/16 19:14 84 17 35 09/22/16 17:15 80 18 35 09/22/16 16:00 75 09/22/16 16:00 50 09/22/16 16:00 99.0 72 16 102/58 99 Mechanical Ventilator 35 09/22/16 15:00 91 15 35 09/22/16 14:20 97.9 09/22/16 12:30 85 18 09/22/16 12:00 50 09/22/16 12:00 85 09/22/16 12:00 97.9 109 20 136/82 96 Trach Collar 50 Intake and Output 09/22/16 09/23/16 19:00 07:00 Intake Total 795 ml 900 ml Output Total 260 ml 130 ml Balance 535 ml 770 ml Intake Oral 120 ml IV Total 675 ml 900 ml Output Urine Total 260 ml 130 ml Laboratory Tests 09/23/16 03:35: White Blood Count 5.9, Red Blood Count 3.01L, Hemoglobin 8.9L, Hematocrit 28.2L , Mean Corpuscular Volume 94, Mean Corpuscular Hemoglobin 29.5, Mean Corpuscular Hemoglobin Concent 31.5L, Red Cell Distribution Width 14.5, Platelet Count 172, Mean Platelet Volume 5.6L, Neutrophils (%) (Auto) 71.0, Lymphocytes (%) (Auto) 17.4L, Monocytes (%) (Auto) 8.0, Eosinophils (%) (Auto) 2.8, Basophils (%) (Auto) 0.9, Erythrocyte Sedimentation Rate [Pending], Sodium Level 139, Potassium Level 4.4, Chloride Level 93L, Carbon Dioxide Level 35H, Anion Gap 11, Blood Urea Nitrogen 72H, Creatinine 2.9H, Estimat Glomerular Filtration Rate , Glucose Level 100, Uric Acid 9.8H, Calcium Level 8.6, Phosphorus Level 4.0, Magnesium Level 2.2, Total Bilirubin 0.5, Aspartate Amino Transf (AST/SGOT) 14, Alanine Aminotransferase (ALT/SGPT) 5, Alkaline Phosphatase 60, C-Reactive Protein, Quantitative 9.9H, Pro-B-Type Natriuretic Peptide 65100Q, Total Protein 6.7, Albumin 3.1L, Globulin 3.6, Albumin/Globulin Ratio 0.8L Height (Feet): 5 Height (Inches): 4.00 Weight (Pounds): 355 Objective Obese WW NCAT supple, s/p trach Coarse BS, ronmercedes RR Abd soft NT ND, obese (+) edema Neuro - responsive SUYAPABRETT Sep 23, 2016 11:20
--- NOTE | 2016-09-23 11:36 | General Progress Note ---
Assessment/Plan Status: stable Assessment/Plan CKD- and acute renal failure Acute respiratory failure High K Obese COPD , rising Co2 CHF, Diastolic MINA UTI Anemia GI Bleed, GI bleeding At Fib Pulm HTN Low B12 Plan; Trach 09/20- change IV- adjust meds per order 24 h Urine CrCl and Protein- ordered ( CrCl 12) Optimize cardiac status- Monitor renal parameters and lytes- Avoid nephrotoxics B12 SQ- PO Folate Subjective ROS Limited/Unobtainable: No Allergies: Coded Allergies: AMOXICILLIN (Verified Allergy, Mild, RASH, 12/25/09) MORPHINE (Unverified Allergy, Unknown, 09/06/16) PENICILLINS (Unverified Allergy, Unknown, 04/06/16) Objective Last 24 Hour Vital Signs Date Time Temp Pulse Resp B/P Pulse Ox O2 Delivery O2 Flow Rate FiO2 09/23/16 11:12 82 19 35 09/23/16 11:12 98.4 73 20 115/61 98 Mechanical Ventilator 35 09/23/16 08:34 84 19 35 09/23/16 08:28 69 09/23/16 08:15 97.5 81 18 120/62 100 Mechanical Ventilator 35 09/23/16 07:02 73 20 35 09/23/16 05:09 85 18 35 09/23/16 04:00 98.5 75 16 116/79 100 Mechanical Ventilator 35 09/23/16 04:00 70 09/23/16 04:00 98.5 09/23/16 04:00 50 09/23/16 03:04 74 16 35 09/23/16 00:42 67 15 35 09/23/16 00:00 98.4 76 18 112/68 100 Mechanical Ventilator 35 09/23/16 00:00 66 09/23/16 00:00 50 09/22/16 23:23 69 15 35 09/22/16 21:14 82 18 35 09/22/16 20:00 50 09/22/16 20:00 66 09/22/16 20:00 98.9 73 16 109/60 99 Mechanical Ventilator 35 09/22/16 19:14 84 17 35 09/22/16 17:15 80 18 35 09/22/16 16:00 75 09/22/16 16:00 50 09/22/16 16:00 99.0 72 16 102/58 99 Mechanical Ventilator 35 09/22/16 15:00 91 15 35 09/22/16 14:20 97.9 09/22/16 12:30 85 18 09/22/16 12:00 50 09/22/16 12:00 85 09/22/16 12:00 97.9 109 20 136/82 96 Trach Collar 50 Intake and Output 09/22/16 09/23/16 19:00 07:00 Intake Total 795 ml 900 ml Output Total 260 ml 130 ml Balance 535 ml 770 ml Intake Oral 120 ml IV Total 675 ml 900 ml Output Urine Total 260 ml 130 ml Laboratory Tests 09/23/16 03:35: White Blood Count 5.9, Red Blood Count 3.01L, Hemoglobin 8.9L, Hematocrit 28.2L , Mean Corpuscular Volume 94, Mean Corpuscular Hemoglobin 29.5, Mean Corpuscular Hemoglobin Concent 31.5L, Red Cell Distribution Width 14.5, Platelet Count 172, Mean Platelet Volume 5.6L, Neutrophils (%) (Auto) 71.0, Lymphocytes (%) (Auto) 17.4L, Monocytes (%) (Auto) 8.0, Eosinophils (%) (Auto) 2.8, Basophils (%) (Auto) 0.9, Erythrocyte Sedimentation Rate [Pending], Sodium Level 139, Potassium Level 4.4, Chloride Level 93L, Carbon Dioxide Level 35H, Anion Gap 11, Blood Urea Nitrogen 72H, Creatinine 2.9H, Estimat Glomerular Filtration Rate , Glucose Level 100, Uric Acid 9.8H, Calcium Level 8.6, Phosphorus Level 4.0, Magnesium Level 2.2, Total Bilirubin 0.5, Aspartate Amino Transf (AST/SGOT) 14, Alanine Aminotransferase (ALT/SGPT) 5, Alkaline Phosphatase 60, C-Reactive Protein, Quantitative 9.9H, Pro-B-Type Natriuretic Peptide 35395W, Total Protein 6.7, Albumin 3.1L, Globulin 3.6, Albumin/Globulin Ratio 0.8L Height (Feet): 5 Height (Inches): 4.00 Weight (Pounds): 355 Cardiovascular: regular rhythm Respiratory/Chest: decreased breath sounds Abdomen: other - obese Objective no change COURTNEY LOPEZ Sep 23, 2016 11:36
--- NOTE | 2016-09-23 11:47 | Infectious Diseases Prog Note ---
Assessment/Plan Assessment/Plan A: E. coli UTI s/p Rx GI bleeding Hypercapnic respiratory failure s/p Tracheostomy Acute renal failure, CKD Anemia Morbid obesity DM P: observe off antibiotic Subjective ROS Limited/Unobtainable: Yes Constitutional: Reports: no symptoms Respiratory: Reports: no symptoms Allergies: Coded Allergies: AMOXICILLIN (Verified Allergy, Mild, RASH, 12/25/09) MORPHINE (Unverified Allergy, Unknown, 09/06/16) PENICILLINS (Unverified Allergy, Unknown, 04/06/16) Objective Vital Signs Last 24 Hour Vital Signs Date Time Temp Pulse Resp B/P Pulse Ox O2 Delivery O2 Flow Rate FiO2 09/23/16 11:12 82 19 35 09/23/16 11:12 98.4 73 20 115/61 98 Mechanical Ventilator 35 09/23/16 08:34 84 19 35 09/23/16 08:28 69 09/23/16 08:15 97.5 81 18 120/62 100 Mechanical Ventilator 35 09/23/16 07:02 73 20 35 09/23/16 05:09 85 18 35 09/23/16 04:00 98.5 75 16 116/79 100 Mechanical Ventilator 35 09/23/16 04:00 70 09/23/16 04:00 98.5 09/23/16 04:00 50 09/23/16 03:04 74 16 35 09/23/16 00:42 67 15 35 09/23/16 00:00 98.4 76 18 112/68 100 Mechanical Ventilator 35 09/23/16 00:00 66 09/23/16 00:00 50 09/22/16 23:23 69 15 35 09/22/16 21:14 82 18 35 09/22/16 20:00 50 09/22/16 20:00 66 09/22/16 20:00 98.9 73 16 109/60 99 Mechanical Ventilator 35 09/22/16 19:14 84 17 35 09/22/16 17:15 80 18 35 09/22/16 16:00 75 09/22/16 16:00 50 09/22/16 16:00 99.0 72 16 102/58 99 Mechanical Ventilator 35 09/22/16 15:00 91 15 35 09/22/16 14:20 97.9 09/22/16 12:30 85 18 09/22/16 12:00 50 09/22/16 12:00 85 09/22/16 12:00 97.9 109 20 136/82 96 Trach Collar 50 Height (Feet): 5 Height (Inches): 4.00 Weight (Pounds): 355 General Appearance: no acute distress HEENT: status post trach Respiratory/Chest: lungs clear, other - on ventilator Cardiovascular: normal rate Abdomen: soft, non tender Extremities: other - trace pedal edema Neurologic/Psychiatric: alert, oriented x 3, responsive Laboratory Tests Test 09/23/16 03:35 White Blood Count 5.9 K/UL (4.8-10.8) Red Blood Count 3.01 M/UL (4.20-5.40) L Hemoglobin 8.9 G/DL (12.0-16.0) L Hematocrit 28.2 % (37.0-47.0) L Mean Corpuscular Volume 94 FL (80-99) Mean Corpuscular Hemoglobin 29.5 PG (27.0-31.0) Mean Corpuscular Hemoglobin Concent 31.5 G/DL (32.0-36.0) L Red Cell Distribution Width 14.5 % (11.6-14.8) Platelet Count 172 K/UL (150-450) Mean Platelet Volume 5.6 FL (6.5-10.1) L Neutrophils (%) (Auto) 71.0 % (45.0-75.0) Lymphocytes (%) (Auto) 17.4 % (20.0-45.0) L Monocytes (%) (Auto) 8.0 % (1.0-10.0) Eosinophils (%) (Auto) 2.8 % (0.0-3.0) Basophils (%) (Auto) 0.9 % (0.0-2.0) Erythrocyte Sedimentation Rate Pending Sodium Level 139 mEQ/L (135-145) Potassium Level 4.4 mEQ/L (3.4-4.9) Chloride Level 93 mEQ/L (98-107) L Carbon Dioxide Level 35 mEQ/L (20-30) H Anion Gap 11 (5-15) Blood Urea Nitrogen 72 mg/dL (7-23) H Creatinine 2.9 mg/dL (0.5-0.9) H Estimat Glomerular Filtration Rate mL/min (>60) Glucose Level 100 mg/dL (74-106) Uric Acid 9.8 mg/dL (3.0-7.5) H Calcium Level 8.6 mg/dL (8.6-10.2) Phosphorus Level 4.0 mg/dL (2.5-4.8) Magnesium Level 2.2 mg/dL (1.7-2.5) Total Bilirubin 0.5 mg/dL (0.0-1.2) Aspartate Amino Transf (AST/SGOT) 14 U/L (5-40) Alanine Aminotransferase (ALT/SGPT) 5 U/L (3-33) Alkaline Phosphatase 60 U/L (35-104) C-Reactive Protein, Quantitative 9.9 mg/dL (< 0.5) H Pro-B-Type Natriuretic Peptide 53694 pg/mL (0-125) H Total Protein 6.7 g/dL (6.6-8.7) Albumin 3.1 g/dL (3.5-5.2) L Globulin 3.6 g/dL Albumin/Globulin Ratio 0.8 (1.0-2.7) L Current Medications Medications (Trade) Dose Ordered Sig/Kalyn Route PRN Reason Start Time Stop Time Status Last Admin Dose Admin Acetaminophen (Tylenol) 650 mg Q4H PRN ORAL T>100.5 09/21/16 22:30 10/21/16 22:29 Dextrose (D5W 1000ml) 1,000 ml @ 75 mls/hr [id number] IV 09/21/16 20:45 10/21/16 20:44 09/23/16 00:18 Dextrose (Dextrose 50%) STAT PRN IV Hypoglycemia 09/22/16 18:15 10/22/16 18:14 Epoetin Santos (Procrit (for ESRD on dialysis)) 7,000 units TUE-TUE-TUE SUBQ 09/22/16 21:00 10/22/16 20:59 09/22/16 20:09 Esomeprazole Sodium (Nexium I.v.) 40 mg QHS IVP 09/21/16 21:00 10/21/16 20:59 09/22/16 20:08 Folic Acid (Folate) 2 mg DAILY ORAL 09/22/16 09:00 10/22/16 08:59 09/23/16 08:55 Heparin Sodium (Porcine) (Heparin 5000 units/ml) 5,000 units EVERY 12 HOURS SUBQ 09/22/16 09:00 10/22/16 08:59 09/23/16 09:02 Insulin Aspart (NovoLOG) Q6 hours BEFORE MEALS AND HS SUBQ 09/22/16 06:30 10/22/16 06:29 09/22/16 20:11 Nystatin (Nystop Powder) 1 applic THREE TIMES A DAY TOPIC 09/22/16 09:00 10/22/16 08:59 09/23/16 08:59 Ondansetron HCl (Zofran) 4 mg Q6H PRN IVP Nausea & Vomiting 09/22/16 00:30 10/22/16 00:29 Polyethylene Glycol (Miralax) 17 gm DAILY ORAL 09/22/16 09:00 10/22/16 08:59 09/23/16 08:55 Polyethylene Glycol (Miralax) 17 gm DAILYPRN PRN ORAL Constipation 09/22/16 18:30 10/22/16 18:29 Pravastatin Sodium (Pravachol) 20 mg BEDTIME ORAL 09/21/16 21:00 10/21/16 20:59 Sevelamer Carbonate (Renvela) 800 mg THREE TIMES A DAY ORAL 09/22/16 09:00 10/22/16 08:59 09/23/16 08:56 Sildenafil Citrate (Revatio) 20 mg THREE TIMES A DAY ORAL 09/22/16 09:00 10/22/16 08:59 09/23/16 08:54 Tramadol HCl (Ultram) 50 mg Q6H PRN ORAL Moderate pain 09/22/16 21:00 09/29/16 20:59 09/23/16 08:50 Tramadol HCl (Ultram) 100 mg Q6H PRN ORAL severe pain 09/22/16 21:00 09/29/16 20:59 CARY ESTES Sep 23, 2016 11:47
[2016-09-23 12:17] LABS: ERYTHROCYTE SEDIMENTATION RATE 88 MM/HR (0-30)
[2016-09-23 15:45] VITALS: BP 148/76
--- NOTE | 2016-09-23 16:14 | General Progress Note ---
Assessment/Plan Status: stable, progressing Assessment/Plan stable, -cont current treatment Subjective Constitutional: Reports: weakness Neurologic/Psychiatric: Reports: anxiety, weakness Allergies: Coded Allergies: AMOXICILLIN (Verified Allergy, Mild, RASH, 12/25/09) MORPHINE (Unverified Allergy, Unknown, 09/06/16) PENICILLINS (Unverified Allergy, Unknown, 04/06/16) Subjective communicate better Objective Last 24 Hour Vital Signs Date Time Temp Pulse Resp B/P Pulse Ox O2 Delivery O2 Flow Rate FiO2 09/23/16 15:45 98.2 82 20 148/76 98 Mechanical Ventilator 35 09/23/16 15:07 72 15 35 09/23/16 12:52 75 19 35 09/23/16 11:12 82 19 35 09/23/16 11:12 98.4 73 20 115/61 98 Mechanical Ventilator 35 09/23/16 08:34 84 19 35 09/23/16 08:28 69 09/23/16 08:15 97.5 81 18 120/62 100 Mechanical Ventilator 35 09/23/16 07:02 73 20 35 09/23/16 05:09 85 18 35 09/23/16 04:00 98.5 75 16 116/79 100 Mechanical Ventilator 35 09/23/16 04:00 70 09/23/16 04:00 98.5 09/23/16 04:00 50 09/23/16 03:04 74 16 35 09/23/16 00:42 67 15 35 09/23/16 00:00 98.4 76 18 112/68 100 Mechanical Ventilator 35 09/23/16 00:00 66 09/23/16 00:00 50 09/22/16 23:23 69 15 35 09/22/16 21:14 82 18 35 09/22/16 20:00 50 09/22/16 20:00 66 09/22/16 20:00 98.9 73 16 109/60 99 Mechanical Ventilator 35 09/22/16 19:14 84 17 35 09/22/16 17:15 80 18 35 Intake and Output 09/22/16 09/23/16 19:00 07:00 Intake Total 795 ml 900 ml Output Total 260 ml 130 ml Balance 535 ml 770 ml Intake Oral 120 ml IV Total 675 ml 900 ml Output Urine Total 260 ml 130 ml Laboratory Tests 09/23/16 03:35: White Blood Count 5.9, Red Blood Count 3.01L, Hemoglobin 8.9L, Hematocrit 28.2L , Mean Corpuscular Volume 94, Mean Corpuscular Hemoglobin 29.5, Mean Corpuscular Hemoglobin Concent 31.5L, Red Cell Distribution Width 14.5, Platelet Count 172, Mean Platelet Volume 5.6L, Neutrophils (%) (Auto) 71.0, Lymphocytes (%) (Auto) 17.4L, Monocytes (%) (Auto) 8.0, Eosinophils (%) (Auto) 2.8, Basophils (%) (Auto) 0.9, Erythrocyte Sedimentation Rate 88H, Sodium Level 139, Potassium Level 4.4, Chloride Level 93L, Carbon Dioxide Level 35H, Anion Gap 11, Blood Urea Nitrogen 72H, Creatinine 2.9H, Estimat Glomerular Filtration Rate , Glucose Level 100, Uric Acid 9.8H, Calcium Level 8.6, Phosphorus Level 4.0, Magnesium Level 2.2, Total Bilirubin 0.5, Aspartate Amino Transf (AST/SGOT ) 14, Alanine Aminotransferase (ALT/SGPT) 5, Alkaline Phosphatase 60, C- Reactive Protein, Quantitative 9.9H, Pro-B-Type Natriuretic Peptide 30479E, Total Protein 6.7, Albumin 3.1L, Globulin 3.6, Albumin/Globulin Ratio 0.8L Height (Feet): 5 Height (Inches): 4.00 Weight (Pounds): 355 General Appearance: no apparent distress, alert, morbidly obese Neurologic: alert, oriented x 3, responsive, depressed affect Eda Pena M.D. Sep 23, 2016 16:14
--- NOTE | 2016-09-23 17:22 | Cardiology Progress Note ---
Assessment/Plan Assessment/Plan 1. Coffee-ground emesis. 2. Anemia, worsened, chronic. 3. Gastrointestinal bleed. 4. Permanent atrial fibrillation. 5. History of pulmonary hypertension of significant degree, treated with sildenafil. 6. Systemic hypertension. 7. Chronic renal insufficiency. 8. Diabetes mellitus 9. respiratory acidosis 10. hypotension 11. diastolic left heart failure 12. core pulmonle hgb noted low stable bpimproved off eliquis for now tele noted afib vr ok back on sindeniafil bp seem ok diurtics as bp allow and if ok with renal wean as possible Subjective Cardiovascular: Denies: chest pain, lightheadedness, palpitations Respiratory: Denies: shortness of breath Gastrointestinal/Abdominal: Denies: abdominal pain Genitourinary: Denies: burning Subjective on vent, Objective Last 24 Hour Vital Signs Date Time Temp Pulse Resp B/P Pulse Ox O2 Delivery O2 Flow Rate FiO2 09/23/16 16:54 71 15 35 09/23/16 15:45 98.2 82 20 148/76 98 Mechanical Ventilator 35 09/23/16 15:07 72 15 35 09/23/16 12:52 75 19 35 09/23/16 11:12 82 19 35 09/23/16 11:12 98.4 73 20 115/61 98 Mechanical Ventilator 35 09/23/16 08:34 84 19 35 09/23/16 08:28 69 09/23/16 08:15 97.5 81 18 120/62 100 Mechanical Ventilator 35 09/23/16 07:02 73 20 35 09/23/16 05:09 85 18 35 09/23/16 04:00 98.5 75 16 116/79 100 Mechanical Ventilator 35 09/23/16 04:00 70 09/23/16 04:00 98.5 09/23/16 04:00 50 09/23/16 03:04 74 16 35 09/23/16 00:42 67 15 35 09/23/16 00:00 98.4 76 18 112/68 100 Mechanical Ventilator 35 09/23/16 00:00 66 09/23/16 00:00 50 09/22/16 23:23 69 15 35 09/22/16 21:14 82 18 35 09/22/16 20:00 50 09/22/16 20:00 66 09/22/16 20:00 98.9 73 16 109/60 99 Mechanical Ventilator 35 09/22/16 19:14 84 17 35 General Appearance: alert, on vent, patient on isolation Cardiovascular: irregularly irregular Respiratory/Chest: lungs clear Abdomen: normal bowel sounds, non tender, soft Extremities: severe edema Intake and Output 09/22/16 09/23/16 19:00 07:00 Intake Total 795 ml 900 ml Output Total 260 ml 130 ml Balance 535 ml 770 ml Intake Oral 120 ml IV Total 675 ml 900 ml Output Urine Total 260 ml 130 ml Laboratory Tests Test 09/23/16 03:35 White Blood Count 5.9 K/UL (4.8-10.8) Red Blood Count 3.01 M/UL (4.20-5.40) L Hemoglobin 8.9 G/DL (12.0-16.0) L Hematocrit 28.2 % (37.0-47.0) L Mean Corpuscular Volume 94 FL (80-99) Mean Corpuscular Hemoglobin 29.5 PG (27.0-31.0) Mean Corpuscular Hemoglobin Concent 31.5 G/DL (32.0-36.0) L Red Cell Distribution Width 14.5 % (11.6-14.8) Platelet Count 172 K/UL (150-450) Mean Platelet Volume 5.6 FL (6.5-10.1) L Neutrophils (%) (Auto) 71.0 % (45.0-75.0) Lymphocytes (%) (Auto) 17.4 % (20.0-45.0) L Monocytes (%) (Auto) 8.0 % (1.0-10.0) Eosinophils (%) (Auto) 2.8 % (0.0-3.0) Basophils (%) (Auto) 0.9 % (0.0-2.0) Erythrocyte Sedimentation Rate 88 MM/HR (0-30) H Sodium Level 139 mEQ/L (135-145) Potassium Level 4.4 mEQ/L (3.4-4.9) Chloride Level 93 mEQ/L (98-107) L Carbon Dioxide Level 35 mEQ/L (20-30) H Anion Gap 11 (5-15) Blood Urea Nitrogen 72 mg/dL (7-23) H Creatinine 2.9 mg/dL (0.5-0.9) H Estimat Glomerular Filtration Rate mL/min (>60) Glucose Level 100 mg/dL (74-106) Uric Acid 9.8 mg/dL (3.0-7.5) H Calcium Level 8.6 mg/dL (8.6-10.2) Phosphorus Level 4.0 mg/dL (2.5-4.8) Magnesium Level 2.2 mg/dL (1.7-2.5) Total Bilirubin 0.5 mg/dL (0.0-1.2) Aspartate Amino Transf (AST/SGOT) 14 U/L (5-40) Alanine Aminotransferase (ALT/SGPT) 5 U/L (3-33) Alkaline Phosphatase 60 U/L (35-104) C-Reactive Protein, Quantitative 9.9 mg/dL (< 0.5) H Pro-B-Type Natriuretic Peptide 23502 pg/mL (0-125) H Total Protein 6.7 g/dL (6.6-8.7) Albumin 3.1 g/dL (3.5-5.2) L Globulin 3.6 g/dL Albumin/Globulin Ratio 0.8 (1.0-2.7) L BRIANA TELLES Sep 23, 2016 17:22
[2016-09-23 20:00] VITALS: BP 122/64
[2016-09-23] MEDS: Esomeprazole sodium 40mg vial IVP SCH (20:58)
[2016-09-24] VITALS: BP 111/73
[2016-09-24] MEDS: traMADol 50mg tab ORAL PRN (01:07)
[2016-09-24 04:00] VITALS: BP 125/63
[2016-09-24] MEDS: NovoLOG Insulin Flexpen SUBQ SCH ×3 (06:06→16:30)
[2016-09-24 07:57] VITALS: BP_SYST 133; BP_SYST 141; BP_DIAS 62; BP_DIAS 65
[2016-09-24] MEDS: Nystatin Powder 100,000 units/gm 15gm TOPIC SCH ×2 (08:35→13:27)
[2016-09-24] MEDS: Revatio 20mg tab ORAL SCH ×2 (08:35→13:27)
[2016-09-24] MEDS: Miralax 17gm pkt ORAL SCH (08:36)
[2016-09-24] MEDS: Heparin 5000 units/ml inj SUBQ SCH (08:37)
--- NOTE | 2016-09-24 10:22 | Infectious Diseases Prog Note ---
Assessment/Plan Assessment/Plan antibiotics : none A 1. e.coli esbl UTI s/p rx 2. DM 3. renal failure 4. CHF 5. respiratory failure s/p tracheostomy P 1. continue off antibiotics Subjective ROS Limited/Unobtainable: Yes Allergies: Coded Allergies: AMOXICILLIN (Verified Allergy, Mild, RASH, 12/25/09) MORPHINE (Unverified Allergy, Unknown, 09/06/16) PENICILLINS (Unverified Allergy, Unknown, 04/06/16) Objective Vital Signs Last 24 Hour Vital Signs Date Time Temp Pulse Resp B/P Pulse Ox O2 Delivery O2 Flow Rate FiO2 09/24/16 09:28 88 17 35 09/24/16 08:26 62 09/24/16 08:00 50 09/24/16 07:57 98.0 92 22 133/65 100 Mechanical Ventilator 35 09/24/16 07:03 67 16 35 09/24/16 05:08 59 15 35 09/24/16 04:00 62 09/24/16 04:00 50 09/24/16 04:00 98.1 67 20 125/63 100 Mechanical Ventilator 35 09/24/16 03:27 69 15 35 09/24/16 02:06 97.8 09/24/16 00:57 64 09/24/16 00:57 64 09/24/16 00:40 64 15 35 09/24/16 00:00 50 09/24/16 00:00 97.8 81 20 111/73 97 Mechanical Ventilator 35 09/23/16 23:32 63 15 35 09/23/16 20:49 70 15 35 09/23/16 20:00 50 09/23/16 20:00 97.4 81 20 122/64 99 Mechanical Ventilator 35 09/23/16 19:24 105 09/23/16 18:53 77 18 35 09/23/16 16:54 71 15 35 09/23/16 16:04 50 09/23/16 15:45 98.2 82 20 148/76 98 Mechanical Ventilator 35 09/23/16 15:07 72 15 35 09/23/16 12:52 75 19 35 09/23/16 12:00 50 09/23/16 11:12 82 19 35 09/23/16 11:12 98.4 73 20 115/61 98 Mechanical Ventilator 35 Height (Feet): 5 Height (Inches): 4.00 Weight (Pounds): 350 HEENT: status post trach, other - neck ecchymoses Respiratory/Chest: lungs clear Cardiovascular: normal rate, regular rhythm, no gallop/murmur Abdomen: soft, non tender Extremities: other - + edema TATIANNA JONES Sep 24, 2016 10:22
[2016-09-24 12:00] VITALS: BP 121/67
--- NOTE | 2016-09-24 12:27 | Pulmonology Progress Note ---
Assessment/Plan Problems: (1) Acute respiratory failure (2) CKD (chronic kidney disease) (3) Hyperkalemia (4) COPD (chronic obstructive pulmonary disease) (5) Anemia (6) MINA (obstructive sleep apnea) Assessment/Plan Respiratory: monitor respiratory rate, adjust FIO2 Cardiac: continue to monitor HR/BP Renal: F/U I&O, keep IV fluid Infectious Disease: check cultures, continue antibiotics Gastrointestinal: hold feedings Endocrine: monitor blood sugar, check HgA1C, continue sliding scale insulin Hematologic: transfuse if hgb<8.5 Neurologic: PRN Ativan, keep patient comfortable Affect: PRN ativan Notes Reviewed: sole stainer, renal 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: nurses, consultants, bottle caser Subjective ROS Limited/Unobtainable: No Interval Events: late note for 09/23 Allergies: Coded Allergies: AMOXICILLIN (Verified Allergy, Mild, RASH, 12/25/09) MORPHINE (Unverified Allergy, Unknown, 09/06/16) PENICILLINS (Unverified Allergy, Unknown, 04/06/16) Objective Last 24 Hour Vital Signs Date Time Temp Pulse Resp B/P Pulse Ox O2 Delivery O2 Flow Rate FiO2 09/24/16 12:03 50 09/24/16 12:00 97.8 92 20 121/67 98 Mechanical Ventilator 35 09/24/16 11:08 18 35 09/24/16 09:28 88 17 35 09/24/16 08:26 62 09/24/16 08:00 50 09/24/16 07:57 98.0 92 22 133/65 100 Mechanical Ventilator 35 09/24/16 07:03 67 16 35 09/24/16 05:08 59 15 35 09/24/16 04:00 62 09/24/16 04:00 50 09/24/16 04:00 98.1 67 20 125/63 100 Mechanical Ventilator 35 09/24/16 03:27 69 15 35 09/24/16 02:06 97.8 09/24/16 00:57 64 09/24/16 00:57 64 09/24/16 00:40 64 15 35 09/24/16 00:00 50 09/24/16 00:00 97.8 81 20 111/73 97 Mechanical Ventilator 35 09/23/16 23:32 63 15 35 09/23/16 20:49 70 15 35 09/23/16 20:00 50 09/23/16 20:00 97.4 81 20 122/64 99 Mechanical Ventilator 35 09/23/16 19:24 105 09/23/16 18:53 77 18 35 09/23/16 16:54 71 15 35 09/23/16 16:04 50 09/23/16 15:45 98.2 82 20 148/76 98 Mechanical Ventilator 35 09/23/16 15:07 72 15 35 09/23/16 12:52 75 19 35 Intake and Output 09/23/16 09/24/16 19:00 07:00 Intake Total 1165 ml 900 ml Output Total 200 ml Balance 1165 ml 700 ml Intake Oral 490 ml 75 ml IV Total 675 ml 825 ml Output Urine Total 200 ml # Bowel Movements 1 Objective General Appearance: WD/WN HEENT: normocephalic, atraumatic Respiratory/Chest: chest wall non-tender, lungs clear Breasts: no masses Abdomen: normal bowel sounds, soft, non tender Genitourinary: normal external genitalia Extremities: no cyanosis Skin: no rash Current Medications Medications (Trade) Dose Ordered Sig/Kalyn Route PRN Reason Start Time Stop Time Status Last Admin Dose Admin Acetaminophen (Tylenol) 650 mg Q4H PRN ORAL T>100.5 09/21/16 22:30 10/21/16 22:29 Dextrose (D5W 1000ml) 1,000 ml @ 75 mls/hr [id number] IV 09/21/16 20:45 10/21/16 20:44 09/23/16 20:59 Dextrose (Dextrose 50%) STAT PRN IV Hypoglycemia 09/22/16 18:15 10/22/16 18:14 Epoetin Santos (Procrit (for ESRD on dialysis)) 7,000 units MON-WED-TUE SUBQ 09/22/16 21:00 10/22/16 20:59 09/22/16 20:09 Esomeprazole Sodium (Nexium I.v.) 40 mg QHS IVP 09/21/16 21:00 10/21/16 20:59 09/23/16 20:58 Folic Acid (Folate) 2 mg DAILY ORAL 09/22/16 09:00 10/22/16 08:59 09/24/16 08:35 Heparin Sodium (Porcine) (Heparin 5000 units/ml) 5,000 units EVERY 12 HOURS SUBQ 09/22/16 09:00 10/22/16 08:59 09/24/16 08:37 Insulin Aspart (NovoLOG) Q6 hours BEFORE MEALS AND HS SUBQ 09/22/16 06:30 10/22/16 06:29 09/24/16 11:59 Nystatin (Nystop Powder) 1 applic THREE TIMES A DAY TOPIC 09/22/16 09:00 10/22/16 08:59 09/24/16 08:35 Ondansetron HCl (Zofran) 4 mg Q6H PRN IVP Nausea & Vomiting 09/22/16 00:30 10/22/16 00:29 Polyethylene Glycol (Miralax) 17 gm DAILY ORAL 09/22/16 09:00 10/22/16 08:59 09/23/16 08:55 Polyethylene Glycol (Miralax) 17 gm DAILYPRN PRN ORAL Constipation 09/22/16 18:30 10/22/16 18:29 Pravastatin Sodium (Pravachol) 20 mg BEDTIME ORAL 09/21/16 21:00 10/21/16 20:59 09/23/16 20:58 Sevelamer Carbonate (Renvela) 800 mg THREE TIMES A DAY ORAL 09/22/16 09:00 10/22/16 08:59 09/24/16 08:35 Sildenafil Citrate (Revatio) 20 mg THREE TIMES A DAY ORAL 09/22/16 09:00 10/22/16 08:59 09/24/16 08:35 Tramadol HCl (Ultram) 50 mg Q6H PRN ORAL Moderate pain 09/22/16 21:00 09/29/16 20:59 09/24/16 01:07 Tramadol HCl (Ultram) 100 mg Q6H PRN ORAL severe pain 09/22/16 21:00 09/29/16 20:59 ARASH MIRANDA Sep 24, 2016 12:27
--- NOTE | 2016-09-24 12:28 | Pulmonology Progress Note ---
Assessment/Plan Problems: (1) Acute respiratory failure (2) CKD (chronic kidney disease) (3) Hyperkalemia (4) COPD (chronic obstructive pulmonary disease) (5) Anemia (6) MINA (obstructive sleep apnea) Assessment/Plan Respiratory: monitor respiratory rate Cardiac: stop pressors Renal: F/U I&O, keep IV fluid Infectious Disease: continue antibiotics Gastrointestinal: continue feedings/current rate Endocrine: monitor blood sugar, check TSH Hematologic: monitor H/H, transfuse if hgb<8.5 Neurologic: PRN Morphine, keep patient comfortable Affect: PRN ativan Prophylaxis: Protonix Disposition: keep in ICU Notes Reviewed: surgical instrument technician, renal 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: nurses, consultants, pillowcase maker Subjective Constitutional: Reports: no symptoms HEENT: Repors: no symptoms Respiratory: Reports: no symptoms Allergies: Coded Allergies: AMOXICILLIN (Verified Allergy, Mild, RASH, 12/25/09) MORPHINE (Unverified Allergy, Unknown, 09/06/16) PENICILLINS (Unverified Allergy, Unknown, 04/06/16) Objective Last 24 Hour Vital Signs Date Time Temp Pulse Resp B/P Pulse Ox O2 Delivery O2 Flow Rate FiO2 09/24/16 12:03 50 09/24/16 12:00 97.8 92 20 121/67 98 Mechanical Ventilator 35 09/24/16 11:08 18 35 09/24/16 09:28 88 17 35 09/24/16 08:26 62 09/24/16 08:00 50 09/24/16 07:57 98.0 92 22 133/65 100 Mechanical Ventilator 35 09/24/16 07:03 67 16 35 09/24/16 05:08 59 15 35 09/24/16 04:00 62 09/24/16 04:00 50 09/24/16 04:00 98.1 67 20 125/63 100 Mechanical Ventilator 35 09/24/16 03:27 69 15 35 09/24/16 02:06 97.8 09/24/16 00:57 64 09/24/16 00:57 64 09/24/16 00:40 64 15 35 09/24/16 00:00 50 09/24/16 00:00 97.8 81 20 111/73 97 Mechanical Ventilator 35 09/23/16 23:32 63 15 35 09/23/16 20:49 70 15 35 09/23/16 20:00 50 09/23/16 20:00 97.4 81 20 122/64 99 Mechanical Ventilator 35 09/23/16 19:24 105 09/23/16 18:53 77 18 35 09/23/16 16:54 71 15 35 09/23/16 16:04 50 09/23/16 15:45 98.2 82 20 148/76 98 Mechanical Ventilator 35 09/23/16 15:07 72 15 35 09/23/16 12:52 75 19 35 Intake and Output 09/23/16 09/24/16 19:00 07:00 Intake Total 1165 ml 900 ml Output Total 200 ml Balance 1165 ml 700 ml Intake Oral 490 ml 75 ml IV Total 675 ml 825 ml Output Urine Total 200 ml # Bowel Movements 1 Objective General Appearance: WD/WN HEENT: normocephalic, atraumatic Respiratory/Chest: chest wall non-tender, lungs clear Breasts: no masses Abdomen: normal bowel sounds, soft, non tender Genitourinary: normal external genitalia Extremities: no cyanosis Skin: no rash Current Medications Medications (Trade) Dose Ordered Sig/Kalyn Route PRN Reason Start Time Stop Time Status Last Admin Dose Admin Acetaminophen (Tylenol) 650 mg Q4H PRN ORAL T>100.5 09/21/16 22:30 10/21/16 22:29 Dextrose (D5W 1000ml) 1,000 ml @ 75 mls/hr [id number] IV 09/21/16 20:45 10/21/16 20:44 09/23/16 20:59 Dextrose (Dextrose 50%) STAT PRN IV Hypoglycemia 09/22/16 18:15 10/22/16 18:14 Epoetin Santos (Procrit (for ESRD on dialysis)) 7,000 units MON-WED-FRI SUBQ 09/22/16 21:00 10/22/16 20:59 09/22/16 20:09 Esomeprazole Sodium (Nexium I.v.) 40 mg QHS IVP 09/21/16 21:00 10/21/16 20:59 09/23/16 20:58 Folic Acid (Folate) 2 mg DAILY ORAL 09/22/16 09:00 10/22/16 08:59 09/24/16 08:35 Heparin Sodium (Porcine) (Heparin 5000 units/ml) 5,000 units EVERY 12 HOURS SUBQ 09/22/16 09:00 10/22/16 08:59 09/24/16 08:37 Insulin Aspart (NovoLOG) Q6 hours BEFORE MEALS AND HS SUBQ 09/22/16 06:30 10/22/16 06:29 09/24/16 11:59 Nystatin (Nystop Powder) 1 applic THREE TIMES A DAY TOPIC 09/22/16 09:00 10/22/16 08:59 09/24/16 08:35 Ondansetron HCl (Zofran) 4 mg Q6H PRN IVP Nausea & Vomiting 09/22/16 00:30 10/22/16 00:29 Polyethylene Glycol (Miralax) 17 gm DAILY ORAL 09/22/16 09:00 10/22/16 08:59 09/23/16 08:55 Polyethylene Glycol (Miralax) 17 gm DAILYPRN PRN ORAL Constipation 09/22/16 18:30 10/22/16 18:29 Pravastatin Sodium (Pravachol) 20 mg BEDTIME ORAL 09/21/16 21:00 10/21/16 20:59 09/23/16 20:58 Sevelamer Carbonate (Renvela) 800 mg THREE TIMES A DAY ORAL 09/22/16 09:00 10/22/16 08:59 09/24/16 08:35 Sildenafil Citrate (Revatio) 20 mg THREE TIMES A DAY ORAL 09/22/16 09:00 10/22/16 08:59 09/24/16 08:35 Tramadol HCl (Ultram) 50 mg Q6H PRN ORAL Moderate pain 09/22/16 21:00 09/29/16 20:59 09/24/16 01:07 Tramadol HCl (Ultram) 100 mg Q6H PRN ORAL severe pain 09/22/16 21:00 09/29/16 20:59 ARASH MIRANDA Sep 24, 2016 12:28
--- NOTE | 2016-09-24 14:13 | General Progress Note ---
Assessment/Plan Status: stable Assessment/Plan CKD- and acute renal failure Acute respiratory failure High K Obese COPD , rising Co2 CHF, Diastolic MINA UTI Anemia GI Bleed, GI bleeding At Fib Pulm HTN Low B12 Plan; no labs today Trach 09/20- change IV- adjust meds per order 24 h Urine CrCl and Protein- ordered ( CrCl 12) Optimize cardiac status- Monitor renal parameters and lytes- Avoid nephrotoxics B12 SQ- PO Folate Subjective ROS Limited/Unobtainable: No Constitutional: Reports: malaise Allergies: Coded Allergies: AMOXICILLIN (Verified Allergy, Mild, RASH, 12/25/09) MORPHINE (Unverified Allergy, Unknown, 09/06/16) PENICILLINS (Unverified Allergy, Unknown, 04/06/16) Objective Last 24 Hour Vital Signs Date Time Temp Pulse Resp B/P Pulse Ox O2 Delivery O2 Flow Rate FiO2 09/24/16 12:41 74 15 35 09/24/16 12:03 50 09/24/16 12:00 97.8 92 20 121/67 98 Mechanical Ventilator 35 09/24/16 11:08 18 35 09/24/16 09:28 88 17 35 09/24/16 08:26 62 09/24/16 08:00 50 09/24/16 07:57 98.0 92 22 133/65 100 Mechanical Ventilator 35 09/24/16 07:03 67 16 35 09/24/16 05:08 59 15 35 09/24/16 04:00 62 09/24/16 04:00 50 09/24/16 04:00 98.1 67 20 125/63 100 Mechanical Ventilator 35 09/24/16 03:27 69 15 35 09/24/16 02:06 97.8 09/24/16 00:57 64 09/24/16 00:57 64 09/24/16 00:40 64 15 35 09/24/16 00:00 50 09/24/16 00:00 97.8 81 20 111/73 97 Mechanical Ventilator 35 09/23/16 23:32 63 15 35 09/23/16 20:49 70 15 35 09/23/16 20:00 50 09/23/16 20:00 97.4 81 20 122/64 99 Mechanical Ventilator 35 09/23/16 19:24 105 09/23/16 18:53 77 18 35 09/23/16 16:54 71 15 35 8/17/17 16:04 50 09/23/16 15:45 98.2 82 20 148/76 98 Mechanical Ventilator 35 09/23/16 15:07 72 15 35 Intake and Output 09/23/16 09/24/16 19:00 07:00 Intake Total 1165 ml 900 ml Output Total 200 ml Balance 1165 ml 700 ml Intake Oral 490 ml 75 ml IV Total 675 ml 825 ml Output Urine Total 200 ml # Bowel Movements 1 Height (Feet): 5 Height (Inches): 4.00 Weight (Pounds): 350 EENT: other - trach+ Respiratory/Chest: decreased breath sounds Abdomen: other - obese Objective no change COURTNEY LOPEZ Sep 24, 2016 14:13
--- NOTE | 2016-09-24 15:28 | General Progress Note ---
Assessment/Plan Assessment/Plan Assessment - UGIB - resolved - Anemia-Last EGD/Colon 05/2014 (duodenal AVM- cauterized, mild diverticulosis) - Chronic hypercapnic resp failure -s/p trach - Renal failure - Morbid obesity - CHF - atrial fibrillation Recommendations - tach care - PO as tolerated - Rx empirically with PPI - Monitor labs - Elevate HOB - PO as tolerated - will be away till Tuesday-coverage avail Subjective Allergies: Coded Allergies: AMOXICILLIN (Verified Allergy, Mild, RASH, 12/25/09) MORPHINE (Unverified Allergy, Unknown, 09/06/16) PENICILLINS (Unverified Allergy, Unknown, 04/06/16) Subjective doing better tolerating po pureed Objective Last 24 Hour Vital Signs Date Time Temp Pulse Resp B/P Pulse Ox O2 Delivery O2 Flow Rate FiO2 09/24/16 15:10 75 15 35 09/24/16 12:41 74 15 35 09/24/16 12:03 50 09/24/16 12:00 97.8 92 20 121/67 98 Mechanical Ventilator 35 09/24/16 11:08 18 35 09/24/16 09:28 88 17 35 09/24/16 08:26 62 09/24/16 08:00 50 09/24/16 07:57 98.0 92 22 133/65 100 Mechanical Ventilator 35 09/24/16 07:03 67 16 35 09/24/16 05:08 59 15 35 09/24/16 04:00 62 09/24/16 04:00 50 09/24/16 04:00 98.1 67 20 125/63 100 Mechanical Ventilator 35 09/24/16 03:27 69 15 35 09/24/16 02:06 97.8 09/24/16 00:57 64 09/24/16 00:57 64 09/24/16 00:40 64 15 35 09/24/16 00:00 50 09/24/16 00:00 97.8 81 20 111/73 97 Mechanical Ventilator 35 09/23/16 23:32 63 15 35 09/23/16 20:49 70 15 35 09/23/16 20:00 50 09/23/16 20:00 97.4 81 20 122/64 99 Mechanical Ventilator 35 09/23/16 19:24 105 09/23/16 18:53 77 18 35 09/23/16 16:54 71 15 35 09/23/16 16:04 50 09/23/16 15:45 98.2 82 20 148/76 98 Mechanical Ventilator 35 Intake and Output 09/23/16 09/24/16 19:00 07:00 Intake Total 1165 ml 900 ml Output Total 200 ml Balance 1165 ml 700 ml Intake Oral 490 ml 75 ml IV Total 675 ml 825 ml Output Urine Total 200 ml # Bowel Movements 1 Height (Feet): 5 Height (Inches): 4.00 Weight (Pounds): 350 Objective Obese WW NCAT supple, s/p trach Coarse BS, ronchi RR Abd soft NT ND, obese (+) edema Neuro - responsive BRETT DALE Sep 24, 2016 15:28
[2016-09-24 16:19] VITALS: BP 108/58
--- NOTE | 2016-09-25 23:00 | Progress Note ---
DATE: 09/24/2016 SUBJECTIVE: The patient is doing well. No behavior issues. Calm, more lucid today, engaged. MENTAL STATUS EXAMINATION: Alert and oriented times self. Mood is neutral. Affect is constricted, congruent with mood. Thought process is concrete. Thought content, no suicidal or homicidal ideation. Cognition is still impaired. ASSESSMENT: 1. Delirium, resolved. 2. Anxiety. PLAN: The patient will be continued on current medications. We will continue to follow and readjust the medications. Eda Pena M.D. DR: OWEN JOB#: [id number] CC:
== END 2016-09-24 17:59 | DRG 5 ==
LOC: EDBD 17:55 → EDBEDREQSVC 18:25 → EMR 18:33 → 2W 18:36 → EDBEDREQ 18:59 → 2E 09-09 09:01 → ICU 09-10 15:57 → 2W 09-13 18:00 → ICU 09-20 12:15 → 2W 09-21 20:06
PROC: 5A1955Z Respiratory Ventilation, Greater than 96 Consecutive Hours (ICD-10-PCS; 2016-09-20)
PROC: 0B110F4 Bypass Trachea to Cutaneous with Tracheostomy Device, Open Approach (ICD-10-PCS; principal; 2016-09-20 10:00)
DX: J96.22 Acute and chronic respiratory failure with hypercapnia (principal); I50.31 Acute diastolic (congestive) heart failure; N17.9 Acute kidney failure, unspecified; K92.2 Gastrointestinal hemorrhage, unspecified; Z68.44 Body mass index [BMI] 60.0-69.9, adult; I27.2 Other secondary pulmonary hypertension; F05 Delirium due to known physiological condition; E87.5 Hyperkalemia; E66.01 Morbid (severe) obesity due to excess calories; N39.0 Urinary tract infection, site not specified; N18.9 Chronic kidney disease, unspecified; J44.9 Chronic obstructive pulmonary disease, unspecified; G47.33 Obstructive sleep apnea (adult) (pediatric); E11.9 Type 2 diabetes mellitus without complications; I48.91 Unspecified atrial fibrillation; Z79.01 Long term (current) use of anticoagulants; J98.11 Atelectasis; D50.0 Iron deficiency anemia secondary to blood loss (chronic); B96.20 Unspecified Escherichia coli [E. coli] as the cause of diseases classified elsewhere; F41.9 Anxiety disorder, unspecified; I08.1 Rheumatic disorders of both mitral and tricuspid valves; E53.8 Deficiency of other specified B group vitamins
CPT/HCPCS: 36415; 36600; 71010; 74230; 74247; 76775; 80048; 80053; 80061; 80069; 80076; 81001; 81050; 82270; 82378; 82550; 82553; 82575; 82607; 82746; 82803; 82962; 82977; 83036; 83540; 83550; 83615; 83735; 83880; 84100; 84156; 84443; 84484; 84550; 85007; 85025; 85044; 85060; 85610; 85651; 85730; 86140; 86850; 86900; 86901; 86920; 87040; 87081; 87086; 87181; 89050; 93005; 93306; 93970; 94002; 94003; 94150; 94640; 94660; 94664; 94760; J1815; J2250; J2405; S0077

== ENCOUNTER 2016-09-30 19:08 | Inpatient (IN) | payer MEDICARE, MEDICAID ==
[~2016-09-30] VITALS: Ht 165.1 cm; Wt 159.2 kg
[~2016-09-30 19:08] MED LIST changes: +RENVELA800 MG ORAL; +REVATIO20 MG ORAL
[2016-09-30] MEDS ORDERED: Esomeprazole sodium 40mg vial IVP ONE (19:30)
--- NOTE | 2016-09-30 19:34 | Emergency Room Report ---
History of Present Illness General Chief Complaint: Gastrointestinal Bleed Source: Medical Record Present Illness HPI 75-year-old female with history of respiratory failure with trach dependent obesity chronic kidney diseas,e paroxysmal A. fib on apixiban, full code on POLST, presenting with coffee-ground emesis. Patient nonverbal. EMS reports that nursing facility noticed patient having 2 episodes of coffee-ground emesis. No known black or bloody stools no known recent endoscopies and colonoscopies. Allergies: Coded Allergies: AMOXICILLIN (Verified Allergy, Mild, RASH, 09/30/16) MORPHINE (Unverified Allergy, Unknown, 09/30/16) PENICILLINS (Unverified Allergy, Unknown, 09/30/16) Patient History Past Medical History: see triage record Past Surgical History: unable to obtain Pertinent Family History: unable to obtain Last Menstrual Period: n/a Nursing Documentation-PMH Hx Cardiac Problems: Yes Hx Hypertension: Yes - Pul HTN Hx COPD: Yes - vent dependent, trach Hx Diabetes: Yes Hx Cancer: Yes Hx Gastrointestinal Problems: Yes Hx Neurological Problems: No Hx Seizures: Yes Review of Systems All Other Systems: limited Physical Exam Vital Signs Date Time Temp Pulse Resp B/P (MAP) Pulse Ox O2 Delivery O2 Flow Rate FiO2 09/30/16 19:12 98.6 105 20 122/82 93 Room Air 09/30/16 19:15 40 Sp02 EP Interpretation: abnormal General Appearance: other - Chronically ill-appearing obese female. Awake, following commands, trached to vent Head: normocephalic, atraumatic Eyes: bilateral eye normal inspection, bilateral eye PERRL, bilateral eye EOMI ENT: other - TRACHED Neck: full range of motion Respiratory: other - trach'ed to vent, coarse breath sounds b/l Cardiovascular #1: normal inspection, regular rate, rhythm, no edema, normal capillary refill Gastrointestinal: other - Obese abdomen, generalized tenderness throughout, well-healed surgical scar Musculoskeletal: other - Normal passive range of motion. No signs of trauma. Chronic lymphedema, bilateral 2+ pitting edema lower extremities Neurologic: alert, other - Follows commands Skin: other - Chronic lymphedema of bilateral lower extremities Medical Decision Making Medicare Attestation Pura Almeida MD hereby attest that the medical record entry for date of service, 09 30 16 accurately reflects signatures/notations that I made in my capacity as MD when I treated/diagnosed the above listed Medicare beneficiary. I attest that this information is true, accurate and complete to the best of my knowledge. I understand that any falsification, omission, or concealment of material fact may subject me to administrative, civil, or criminal liability. This patient warrants hospital admission for extreme of age and has a condition that cannot be treated as outpatient. Diagnostic Impression: Primary Impression: Upper gastrointestinal bleed Additional Impressions: Chronic respiratory failure with hypercapnia Hyperkalemia Anemia Renal failure ER Course 75 yo F with hx of coffee ground emesis HD stable. no active hematemesis in ED. DDX: upper gi bleed - gerd/gastritis/gastric ulcer/esophagitis Plan: labs, including coags, type and screen will also persue CT abdo pelvis given pt having generalized tenderness nexium IV ER course: Patient remains on monitor, HD stable Labs: hgb 8.2, hyperkalemia, chronic renal failure EKG: see below CXR: see below Patient xfused 1 unit prbc and 1 unit FFP remained HD stable CT abdo pelvis can only be done without IV contrast given patients renal failure , however at this time patient continues to have n/v so will hold for now. Disposition: Patient is to be admitted to [facility] for upper GI bleed D/W hospitalist Dr Rene Laboratory Tests Test 09/30/16 19:14 09/30/16 19:30 09/30/16 20:15 Arterial Blood pH 7.400 (7.350-7.450) Arterial Blood Partial Pressure CO2 61.3 mmHg (35.0-45.0) *H Arterial Blood Partial Pressure O2 115.5 mmHg (75.0-100.0) H Arterial Blood HCO3 37.1 mmol/L (22.0-26.0) H Arterial Blood Oxygen Saturation 98.0 % (92.0-98.0) Arterial Blood Base Excess 10.9 Mike Test Positive White Blood Count 10.1 K/UL (4.8-10.8) Red Blood Count 2.68 M/UL (4.20-5.40) L Hemoglobin 8.2 G/DL (12.0-16.0) L Hematocrit 24.7 % (37.0-47.0) L Mean Corpuscular Volume 92 FL (80-99) Mean Corpuscular Hemoglobin 30.5 PG (27.0-31.0) Mean Corpuscular Hemoglobin Concent 33.1 G/DL (32.0-36.0) Red Cell Distribution Width 14.7 % (11.6-14.8) Platelet Count 230 K/UL (150-450) Mean Platelet Volume 5.3 FL (6.5-10.1) L Neutrophils (%) (Auto) 80.1 % (45.0-75.0) H Lymphocytes (%) (Auto) 11.3 % (20.0-45.0) L Monocytes (%) (Auto) 5.3 % (1.0-10.0) Eosinophils (%) (Auto) 2.3 % (0.0-3.0) Basophils (%) (Auto) 1.1 % (0.0-2.0) Prothrombin Time 14.5 SEC (9.30-11.50) H Prothrombin Time INR 1.4 (0.9-1.1) H PTT 44 SEC (23-33) H Sodium Level 143 mEQ/L (135-145) Potassium Level 5.5 mEQ/L (3.4-4.9) H Chloride Level 97 mEQ/L (98-107) L Carbon Dioxide Level 33 mEQ/L (20-30) H Anion Gap 13 (5-15) Blood Urea Nitrogen 62 mg/dL (7-23) H Creatinine 2.9 mg/dL (0.5-0.9) H Estimate Glomerular Filtration Rate mL/min (>60) Glucose Level 203 mg/dL (74-106) H Lactic Acid Level 1.30 mmol/L (0.66-2.22) Calcium Level 8.8 mg/dL (8.6-10.2) Total Bilirubin 0.2 mg/dL (0.0-1.2) Aspartate Amino Transferase (AST) 17 U/L (5-40) Alanine Aminotransferase (ALT) 5 U/L (3-33) Alkaline Phosphatase 64 U/L (35-104) Total Creatine Kinase 52 U/L (26-140) Creatine Kinase MB < 1.5 ng/mL (< 3.8) Creatine Kinase MB Relative Index Troponin I < 0.30 ng/mL (<=0.30) Total Protein 7.2 g/dL (6.6-8.7) Albumin 3.3 g/dL (3.5-5.2) L Globulin 3.9 g/dL Albumin/Globulin Ratio 0.8 (1.0-2.7) L Urine Color Yellow Urine Appearance Clear Urine pH 5 (4.5-8.0) Urine Specific Barto 1.015 (1.005-1.035) Urine Protein 1+ (NEGATIVE) H Urine Glucose (UA) Negative (NEGATIVE) Urine Ketones Negative (NEGATIVE) Urine Occult Blood 4+ (NEGATIVE) H Urine Nitrite Negative (NEGATIVE) Urine Bilirubin 1+ (NEGATIVE) H Urine Ictotest Negative Urine Urobilinogen Normal MG/DL (0.0-1.0) Urine Leukocyte Esterase 1+ (NEGATIVE) H Urine RBC 5-10 /HPF (0 - 2) H Urine WBC 2-4 /HPF (0 - 2) Urine Squamous Epithelial Cells Few /LPF (NONE/OCC) Urine Amorphous Sediment Moderate /LPF (NONE) H Urine Bacteria Moderate /HPF (NONE) H Urine Yeast Few /HPF (NONE) H EKG Diagnostic Results Rate: normal Rhythm: NSR ST Segments: other - inferior TWI ASA given to the pt in ED: No Rhythm Strip Diag. Results EP Interpretation: yes Rhythm: NSR, no PVC's, no ectopy Chest X-Ray Diagnostic Results Chest X-Ray Diagnostic Results : Chest X-Ray Ordered: Yes # of Views/Limited/Complete: 1 View Indication: Other - resp failure chronic Interpretation: other - pulm vasc congestion vs bl infiltrates Impression: Other - chf vs. b/l infiltrates Interpreting ER Provider: Electronically signed by Pura ePrez M.D. Last Vital Signs Date Time Temp Pulse Resp B/P (MAP) Pulse Ox O2 Delivery O2 Flow Rate FiO2 09/30/16 19:15 40 09/30/16 19:12 98.6 105 20 122/82 93 Room Air Disposition: ADMITTED INPATIENT Condition: Critical Pura Perez M.D. Sep 30, 2016 19:34
[2016-09-30 19:39] LABS: ABG ALLEN TEST POSITIVE; ABG BASE EXCESS 10.9; ABG PCO2 61.3 mmHg (35.0-45.0)
[2016-09-30 19:55] VITALS: BP 103/59
[2016-09-30 19:56] LABS: BASOPHILS % (AUTO) 1.1 % (0.0-2.0); EOSINOPHILS % (AUTO) 2.3 % (0.0-3.0); LYMPHOCYTES % (AUTO) 11.3 % (20.0-45.0); MEAN CORPUSCULAR HEMOGLOBIN 30.5 PG (27.0-31.0); MEAN CORPUSCULAR HGB CONC 33.1 G/DL (32.0-36.0); MEAN CORPUSCULAR VOLUME 92 FL (80-99); MEAN PLATELET VOLUME 5.3 FL (6.5-10.1); MONOCYTES % (AUTO) 5.3 % (1.0-10.0); NEUTROPHILS % (AUTO) 80.1 % (45.0-75.0); PLATELET COUNT 230 K/UL (150-450); RED BLOOD COUNT 2.68 M/UL (4.20-5.40); RED CELL DISTRIBUTION WIDTH 14.7 % (11.6-14.8); WHITE BLOOD COUNT 10.1 K/UL (4.8-10.8)
[2016-09-30 20:06] LABS: INR 1.4 (0.9-1.1); PROTHROMBIN TIME 14.5 SEC (9.30-11.50); TROPONIN I < 0.30 ng/mL (<=0.30)
[2016-09-30 20:10] LABS: ALANINE AMINOTRANSFERASE 5 U/L (3-33); ALBUMIN/GLOBULIN RATIO 0.8 (1.0-2.7); ANION GAP 13 (5-15); ASPARTATE AMINO TRANSFERASE 17 U/L (5-40); CALCIUM 8.8 mg/dL (8.6-10.2); CARBON DIOXIDE 33 mEQ/L (20-30); CHLORIDE 97 mEQ/L (98-107); CREATININE 2.9 mg/dL (0.5-0.9); HEMOLYSIS 72; POTASSIUM 5.5 mEQ/L (3.4-4.9); SODIUM 143 mEQ/L (135-145); TOTAL PROTEIN 7.2 g/dL (6.6-8.7)
[2016-09-30 20:27] LABS: CKMB < 1.5 ng/mL (< 3.8)
[2016-09-30 20:34] LABS: APPEARANCE,URINE CLEAR; KETONES,URINE NEGATIVE (NEGATIVE); LEUKOCYTE ESTERASE ,URINE 1+ (NEGATIVE); NITRITE,URINE NEGATIVE (NEGATIVE); PH,URINE 5 (4.5-8.0); PROTEIN,URINE 1+ (NEGATIVE); UROBILINOGEN,URINE NORMAL MG/DL (0.0-1.0)
[2016-09-30 20:50] LABS: AMORPHOUS SEDIMENT,UR MODERATE /LPF; BACTERIA,URINE MODERATE /HPF; ICTOTEST NEGATIVE; SQUAMOUS EPITHELIAL CELL,UR FEW /LPF (NONE/OCC); YEAST,URINE FEW /HPF
[2016-09-30 21:05] VITALS: BP 98/57
[2016-09-30] MEDS ORDERED: Calcium Gluconate 1gm/10ml vial IVP ONE (21:15)
[2016-09-30 21:24] VITALS: BP 99/57
[2016-09-30] MEDS ORDERED: Miralax 17gm pkt ORAL PRN (21:30)
[2016-09-30] MEDS ORDERED: DuoNeb 0.5-3(2.5)mg/3ml neb HHN PRN (21:30)
[2016-09-30] MEDS ORDERED: Premarin Inj IV ONE (21:45)
[2016-09-30] MEDS ORDERED: Aminocaproic Acid Inj 5,000 MG in NS 110 ML IV ONE (22:00)
[2016-09-30] MEDS ORDERED: Phytonadione 10 MG in D5W 55 ML IVPB ONE (22:00)
[2016-09-30 23:00] VITALS: BP 123/61
[2016-09-30] MEDS ORDERED: Vancomycin 1 GM in D5W 275 ML IV SCH (23:00)
[2016-09-30] MEDS ORDERED: Vancomycin 1gm inj IVPB ONE (23:55)
[2016-10-01] MEDS ORDERED: RENA-VITE TABL0.8 M1 PO (01:22)
[2016-10-01] MEDS ORDERED: ACETAMINOP160 MG/54 ORAL (01:22)
[2016-10-01] MEDS ORDERED: CRANBERRY200 M1 PO (01:22)
[2016-10-01] MEDS ORDERED: HI-CAL1000 ML PO (01:22)
[2016-10-01] MEDS ORDERED: DUONEB 0.5-3(2.53 ML HHN (01:22)
[2016-10-01 04:00] VITALS: BP 112/65
[2016-10-01 05:40] LABS: BASOPHILS % (AUTO) 0.5 % (0.0-2.0); EOSINOPHILS % (AUTO) 1.2 % (0.0-3.0); LYMPHOCYTES % (AUTO) 11.2 % (20.0-45.0); MEAN CORPUSCULAR HEMOGLOBIN 29.7 PG (27.0-31.0); MEAN CORPUSCULAR HGB CONC 32.2 G/DL (32.0-36.0); MEAN CORPUSCULAR VOLUME 92 FL (80-99); MEAN PLATELET VOLUME 5.3 FL (6.5-10.1); MONOCYTES % (AUTO) 7.4 % (1.0-10.0); NEUTROPHILS % (AUTO) 79.7 % (45.0-75.0); PLATELET COUNT 198 K/UL (150-450); RED BLOOD COUNT 2.89 M/UL (4.20-5.40); RED CELL DISTRIBUTION WIDTH 14.1 % (11.6-14.8)
[2016-10-01 05:52] LABS: URIC ACID 10.2 mg/dL (3.0-7.5)
[2016-10-01 05:54] LABS: INR 1.1 (0.9-1.1)
[2016-10-01 06:33] LABS: HEMOLYSIS 60; IRON 44 ug/dL (37-145); TOTAL IRON BINDING CAPACITY 203 ug/dL (250-400)
[2016-10-01 06:45] LABS: ANION GAP 14 (5-15); CALCIUM 9.1 mg/dL (8.6-10.2); CARBON DIOXIDE 32 mEQ/L (20-30); CHLORIDE 96 mEQ/L (98-107); CREATININE 2.8 mg/dL (0.5-0.9); HEMOLYSIS 4; PHOSPHORUS 4.4 mg/dL (2.5-4.8); POTASSIUM 4.8 mEQ/L (3.4-4.9); SODIUM 142 mEQ/L (135-145)
[2016-10-01 07:21] LABS: ERYTHROCYTE SEDIMENTATION RATE 93 MM/HR (0-30)
[2016-10-01 08:00] VITALS: BP 137/76
[2016-10-01 08:41] LABS: APPEARANCE,URINE CLEAR; KETONES,URINE NEGATIVE (NEGATIVE); LEUKOCYTE ESTERASE ,URINE 2+ (NEGATIVE); NITRITE,URINE NEGATIVE (NEGATIVE); PH,URINE 6 (4.5-8.0); PROTEIN,URINE 2+ (NEGATIVE); UROBILINOGEN,URINE NORMAL MG/DL (0.0-1.0)
[2016-10-01] MEDS: Revatio 20mg tab ORAL SCH ×2 (08:58→13:25)
[2016-10-01 09:21] LABS: BACTERIA,URINE FEW /HPF; SQUAMOUS EPITHELIAL CELL,UR FEW /LPF (NONE/OCC)
[2016-10-01 09:38] LABS: ANISOCYTOSIS 1+; BAND NEUTROPHILS % (MANUAL) 0 % (0-8); BASOPHILS % (MANUAL) 0 % (0-2); EOSINOPHILS % (MANUAL) 1 % (0-3); HYPOCHROMASIA 1+; LYMPHOCYTES % (MANUAL) 13 % (20-45); NEUTROPHILS % (MANUAL) 80 % (45-75); PLATELET ESTIMATE ADEQUATE; PLATELET MORPHOLOGY NORMAL; TOTAL CELLS COUNTED 100
[2016-10-01 10:51] LABS: PATH BLOOD SMEAR/OMC SENT TO PATHOLOGIST; RETICULOCYTE COUNT 1.1 % (0.0-2.0)
--- NOTE | 2016-10-01 11:12 | Consultation ---
History of Present Illness General Date patient seen: Oct 01, 2016 Chief Complaint: Gastrointestinal Bleed Present Illness HPI 75 year old female with hx of morbid obesity, chronic trach, pulmonary htn, shelter resident. brought in by paramedics b/o upper gi bleeding. Allergies: Coded Allergies: AMOXICILLIN (Verified Allergy, Mild, RASH, 09/30/16) MORPHINE (Unverified Allergy, Unknown, 09/30/16) PENICILLINS (Unverified Allergy, Unknown, 09/30/16) Medication History Scheduled Apixaban (Eliquis), 2.5 MG PO BID, (Reported) Calcitriol (Calcitriol), 0.25 MCG ORAL DAILY, (Reported) Calcium Carbonate (Calcium Carbonate), 1,250 MG ORAL BID, (Reported) Cranberry Extract (Cranberry), 200 MG PO DAILY, (Reported) Cyanocobalamin (Vitamin B-12)* (Vitamin B-12*), 3,000 MCG ORAL DAILY, (Reported) Docusate Sodium* (Docusate Sodium*), 100 MG ORAL TWICE A DAY, (Reported) Fluticasone Propionate* (Fluticasone Propionate*), 1 SPRAY NASAL DAILY, ( Reported) Folic Acid* (Folic Acid*), 1 MG ORAL DAILY, (Reported) Folic Acid/Vitamin B Comp W-C (Jessi-Barbara Tablet), 0.8 MG PO DAILY, (Reported) Furosemide* (Lasix*), 20 MG ORAL TWICE A DAY, (Reported) Gabapentin* (Gabapentin*), 600 MG ORAL TWICE A DAY, (Reported) Lactobacillus Acidophilus (Probiotic), 1 EACH PO DAILY, (Reported) Letrozole (Femara), 2.5 MG ORAL DAILY, (Reported) Lidocaine (Lidocaine), 700 MG TP EVERY 24 HOURS, (Reported) Nutritional Supplement (Hi-Mark), 1,000 ML PO TID, (Reported) Pantoprazole (Pantoprazole), 40 MG ORAL DAILY, (Reported) Polyethylene Glycol 3350* (Miralax*), 17 GM ORAL DAILY, (Reported) Pravastatin Sod* (Pravastatin Sod*), 20 MG ORAL BEDTIME, (Reported) Prednisone* (Prednisone*), 10 MG ORAL DAILY, (Reported) Sevelamer Carbonate (Renvela), 800 MG ORAL THREE TIMES A DAY Sildenafil Citrate (Revatio), 20 MG ORAL THREE TIMES A DAY Scheduled PRN Acetaminophen* (Acetaminophen*), 650 MG ORAL Q4HR PRN for Fever/Headache/Mild Pain, (Reported) Ipratropium/Albuterol Sulfate (DuoNeb 0.5-3(2.5)mg/3ml), 3 ML HHN Q6HR PRN for Shortness of Breath, (Reported) Patient History Healthcare decision maker Resuscitation status Full Code Advanced Directive on File Yes Past Medical/Surgical History Past Medical/Surgical History: (1) Morbid obesity (2) Atrial fibrillation (3) CHF (congestive heart failure) Review of Systems All Other Systems: negative except mentioned in HPI Physical Exam General Appearance: WD/WN, morbidly obese Lines, tubes and drains: peripheral HEENT: normocephalic, atraumatic Neck: non-tender, normal alignment Respiratory/Chest: chest wall non-tender, lungs clear Cardiovascular/Chest: normal peripheral pulses, normal rate Abdomen: normal bowel sounds, non tender Genitourinary/Rectal: normal genital exam, normal rectal exam, normal prostate exam Skin Exam: normal pigmentation 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 Last 24 Hour Vital Signs Date Time Temp Pulse Resp B/P (MAP) Pulse Ox O2 Delivery O2 Flow Rate FiO2 10/01/16 10:31 95 15 40 10/01/16 08:54 87 15 40 10/01/16 08:00 97.7 94 18 137/76 95 Mechanical Ventilator 10/01/16 08:00 94 10/01/16 08:00 30 10/01/16 07:18 92 18 40 10/01/16 04:52 78 14 40 10/01/16 04:00 98.0 82 14 112/65 99 Mechanical Ventilator 40 10/01/16 04:00 30 10/01/16 04:00 73 10/01/16 03:02 100 16 40 10/01/16 01:30 102 14 40 10/01/16 00:00 93 10/01/16 00:00 30 09/30/16 23:30 106 14 40 09/30/16 23:01 98.7 96 16 99/57 98 Mechanical Ventilator 40 09/30/16 23:00 98.6 96 16 123/61 98 Mechanical Ventilator 40 09/30/16 21:24 98.7 94 16 99/57 98 Room Air 40 09/30/16 21:24 98.7 93 16 09/30/16 21:07 108 16 40 09/30/16 21:05 99.1 93 16 98/57 98 Room Air 40 09/30/16 21:05 99.1 93 16 09/30/16 19:55 98.6 95 16 103/59 93 Room Air 40 09/30/16 19:51 106 16 40 09/30/16 19:15 40 09/30/16 19:12 98.6 105 20 122/82 93 Room Air Intake and Output 10/01/16 10/02/16 19:00 07:00 Intake Total 225 ml Balance 225 ml Intake IV Total 225 ml # Bowel Movements 1 Laboratory Tests Test 09/30/16 19:14 09/30/16 19:30 09/30/16 20:15 10/01/16 03:00 Arterial Blood pH 7.400 (7.350-7.450) Arterial Blood Partial Pressure CO2 61.3 mmHg (35.0-45.0) *H Arterial Blood Partial Pressure O2 115.5 mmHg (75.0-100.0) H Arterial Blood HCO3 37.1 mmol/L (22.0-26.0) H Arterial Blood Oxygen Saturation 98.0 % (92.0-98.0) Arterial Blood Base Excess 10.9 Mike Test Positive White Blood Count 10.1 K/UL (4.8-10.8) Red Blood Count 2.68 M/UL (4.20-5.40) L Hemoglobin 8.2 G/DL (12.0-16.0) L Hematocrit 24.7 % (37.0-47.0) L Mean Corpuscular Volume 92 FL (80-99) Mean Corpuscular Hemoglobin 30.5 PG (27.0-31.0) Mean Corpuscular Hemoglobin Concent 33.1 G/DL (32.0-36.0) Red Cell Distribution Width 14.7 % (11.6-14.8) Platelet Count 230 K/UL (150-450) Mean Platelet Volume 5.3 FL (6.5-10.1) L Neutrophils (%) (Auto) 80.1 % (45.0-75.0) H Lymphocytes (%) (Auto) 11.3 % (20.0-45.0) L Monocytes (%) (Auto) 5.3 % (1.0-10.0) Eosinophils (%) (Auto) 2.3 % (0.0-3.0) Basophils (%) (Auto) 1.1 % (0.0-2.0) Prothrombin Time 14.5 SEC (9.30-11.50) H Prothromb Time International Ratio 1.4 (0.9-1.1) H Activated Partial Thromboplast Time 44 SEC (23-33) H Sodium Level 143 mEQ/L (135-145) Potassium Level 5.5 mEQ/L (3.4-4.9) H Chloride Level 97 mEQ/L (98-107) L Carbon Dioxide Level 33 mEQ/L (20-30) H Anion Gap 13 (5-15) Blood Urea Nitrogen 62 mg/dL (7-23) H Creatinine 2.9 mg/dL (0.5-0.9) H Estimat Glomerular Filtration Rate mL/min (>60) Glucose Level 203 mg/dL (74-106) H Lactic Acid Level 1.30 mmol/L (0.66-2.22) Calcium Level 8.8 mg/dL (8.6-10.2) Total Bilirubin 0.2 mg/dL (0.0-1.2) Aspartate Amino Transf (AST/SGOT) 17 U/L (5-40) Alanine Aminotransferase (ALT/SGPT) 5 U/L (3-33) Alkaline Phosphatase 64 U/L (35-104) Total Creatine Kinase 52 U/L (26-140) Creatine Kinase MB < 1.5 ng/mL (< 3.8) Creatine Kinase MB Relative Index Troponin I < 0.30 ng/mL (<=0.30) Total Protein 7.2 g/dL (6.6-8.7) Albumin 3.3 g/dL (3.5-5.2) L Globulin 3.9 g/dL Albumin/Globulin Ratio 0.8 (1.0-2.7) L Urine Color Yellow Urine Appearance Clear Urine pH 5 (4.5-8.0) Urine Specific [place] 1.015 (1.005-1.035) Urine Protein 1+ (NEGATIVE) H Urine Glucose (UA) Negative (NEGATIVE) Urine Ketones Negative (NEGATIVE) Urine Occult Blood 4+ (NEGATIVE) H Urine Nitrite Negative (NEGATIVE) Urine Bilirubin 1+ (NEGATIVE) H Urine Ictotest Negative Urine Urobilinogen Normal MG/DL (0.0-1.0) Urine Leukocyte Esterase 1+ (NEGATIVE) H Urine RBC 5-10 /HPF (0 - 2) H Urine WBC 2-4 /HPF (0 - 2) Urine Squamous Epithelial Cells Few /LPF (NONE/OCC) Urine Amorphous Sediment Moderate /LPF (NONE) H Urine Bacteria Moderate /HPF (NONE) H Urine Yeast Few /HPF (NONE) H Stool Occult Blood Positive (NEGATIVE) Test 10/01/16 03:40 10/01/16 06:30 White Blood Count 8.0 K/UL (4.8-10.8) Red Blood Count 2.89 M/UL (4.20-5.40) L Hemoglobin 8.6 G/DL (12.0-16.0) L Hematocrit 26.7 % (37.0-47.0) L Mean Corpuscular Volume 92 FL (80-99) Mean Corpuscular Hemoglobin 29.7 PG (27.0-31.0) Mean Corpuscular Hemoglobin Concent 32.2 G/DL (32.0-36.0) Red Cell Distribution Width 14.1 % (11.6-14.8) Platelet Count 198 K/UL (150-450) Mean Platelet Volume 5.3 FL (6.5-10.1) L Neutrophils (%) (Auto) 79.7 % (45.0-75.0) H Lymphocytes (%) (Auto) 11.2 % (20.0-45.0) L Monocytes (%) (Auto) 7.4 % (1.0-10.0) Eosinophils (%) (Auto) 1.2 % (0.0-3.0) Basophils (%) (Auto) 0.5 % (0.0-2.0) Differential Total Cells Counted 100 Neutrophils % (Manual) 80 % (45-75) H Lymphocytes % (Manual) 13 % (20-45) L Monocytes % (Manual) 6 % (1-10) Eosinophils % (Manual) 1 % (0-3) Basophils % (Manual) 0 % (0-2) Band Neutrophils 0 % (0-8) Platelet Estimate Adequate Platelet Morphology Normal Hypochromasia 1+ Anisocytosis 1+ Erythrocyte Sedimentation Rate 93 MM/HR (0-30) H Reticulocyte Count 1.1 % (0.0-2.0) Prothrombin Time 12.0 SEC (9.30-11.50) H Prothromb Time International Ratio 1.1 (0.9-1.1) Activated Partial Thromboplast Time 29 SEC (23-33) Sodium Level 142 mEQ/L (135-145) Potassium Level 4.8 mEQ/L (3.4-4.9) Chloride Level 96 mEQ/L (98-107) L Carbon Dioxide Level 32 mEQ/L (20-30) H Anion Gap 14 (5-15) Blood Urea Nitrogen 64 mg/dL (7-23) H Creatinine 2.8 mg/dL (0.5-0.9) H Estimat Glomerular Filtration Rate mL/min (>60) Glucose Level 126 mg/dL (74-106) H Uric Acid 10.2 mg/dL (3.0-7.5) H Calcium Level 9.1 mg/dL (8.6-10.2) Phosphorus Level 4.4 mg/dL (2.5-4.8) Iron Level 44 ug/dL (37-145) Total Iron Binding Capacity 203 ug/dL (250-400) L Percent Iron Saturation 22 % (15-50) Unsaturated Iron Binding 159 ug/dL (112-346) Ferritin 573 ng/mL (13-150) H Lactate Dehydrogenase 273 U/L (135-230) H Total Creatine Kinase 53 U/L (26-140) Albumin 2.9 g/dL (3.5-5.2) L Carcinoembryonic Antigen 4.3 ng/mL H Vitamin B12 Level > 2000 pg/mL (211-946) H Methylmalonic Acid Pending Folate Pending Homocystine Pending Urine Color Pale yellow Urine Appearance Clear Urine pH 6 (4.5-8.0) Urine Specific [place] 1.010 (1.005-1.035) Urine Protein 2+ (NEGATIVE) H Urine Glucose (UA) Negative (NEGATIVE) Urine Ketones Negative (NEGATIVE) Urine Occult Blood 3+ (NEGATIVE) H Urine Nitrite Negative (NEGATIVE) Urine Bilirubin Negative (NEGATIVE) Urine Urobilinogen Normal MG/DL (0.0-1.0) Urine Leukocyte Esterase 2+ (NEGATIVE) H Urine RBC 10-15 /HPF (0 - 2) H Urine WBC 2-4 /HPF (0 - 2) Urine Squamous Epithelial Cells Few /LPF (NONE/OCC) Urine Bacteria Few /HPF (NONE) Urine Eosinophils None seen Urine Random Sodium 31 mmol/L Urine Potassium Timed 44 mmol/L Height (Feet): 5 Height (Inches): 5.00 Weight (Pounds): 341 Medications Current Medications Medications (Trade) Dose Ordered Sig/Kalyn Route PRN Reason Start Time Stop Time Status Last Admin Dose Admin Acetaminophen (Tylenol) 650 mg Q4H PRN ORAL FEVER 09/30/16 21:30 10/30/16 21:29 Albuterol/ Ipratropium (DuoNeb 0.5-3(2.5)mg/3ml) 3 ml Q4H PRN HHN Shortness of Breath 09/30/16 21:30 10/05/16 21:29 Dextrose (Dextrose 50%) STAT PRN IV Hypoglycemia 09/30/16 21:30 10/30/16 21:29 Furosemide (Lasix) 20 mg TWICE A DAY ORAL 10/01/16 09:00 10/31/16 08:59 10/01/16 08:58 Gabapentin (Neurontin) 600 mg TWICE A DAY ORAL 10/01/16 09:00 10/31/16 08:59 10/01/16 08:58 Lorazepam (Ativan 2mg/ml 1ml) 2 mg Q2H PRN IV For Anxiety 09/30/16 21:30 10/07/16 21:29 Ondansetron HCl (Zofran) 4 mg Q6H PRN IVP Nausea & Vomiting 09/30/16 21:30 10/30/16 21:29 10/01/16 08:57 Polyethylene Glycol (Miralax) 17 gm DAILYPRN PRN ORAL Constipation 09/30/16 21:30 10/30/16 21:29 Sevelamer Carbonate (Renvela) 800 mg THREE TIMES A DAY ORAL 10/01/16 09:00 10/31/16 08:59 10/01/16 08:58 Sildenafil Citrate (Revatio) 20 mg THREE TIMES A DAY ORAL 10/01/16 09:00 10/31/16 08:59 10/01/16 08:58 Sodium Chloride 1,000 ml @ 75 mls/hr [id number] IV 09/30/16 22:30 10/30/16 22:29 09/30/16 23:50 Vancomycin HCl 1 gm/Dextrose 275 ml @ 183.3 mls/ hr Q24H IV 09/30/16 23:00 10/05/16 22:59 10/01/16 00:17 Assessment/Plan Problem List: (1) Upper gastrointestinal bleed ICD Codes: K92.2 - Gastrointestinal hemorrhage, unspecified SNOMED: 27820875 (2) Pickwickian syndrome ICD Codes: E66.2 - Morbid (severe) obesity with alveolar hypoventilation SNOMED: 409621481 (3) Chronic respiratory failure with hypercapnia ICD Codes: J96.12 - Chronic respiratory failure with hypercapnia SNOMED: 063420554 (4) Morbid obesity ICD Codes: E66.01 - Morbid (severe) obesity due to excess calories SNOMED: 167600858, [id number] Respiratory: monitor respiratory rate Cardiac: continue pressors, stop pressors Renal: keep IV fluid Infectious Disease: check cultures Gastrointestinal: continue feedings/current rate, hold feedings Endocrine: check TSH, check HgA1C, continue sliding scale insulin Hematologic: monitor H/H, transfuse if hgb<8.5 Neurologic: PRN Ativan, PRN Morphine, keep patient comfortable Affect: PRN ativan Prophylaxis: Protonix, Heparin ARASH MIRANDA Oct 01, 2016 11:12
--- NOTE | 2016-10-01 11:36 | Diagnostic Imaging Report ---
Indication: Dyspnea Comparison: 09/22/16 A single view chest radiograph was obtained. Findings: Tracheostomy, moderate cardiomegaly and pulmonary vascular congestion again demonstrated. Interstitial edema suspected. Bones are osteopenic. Impression: CHF/interstitial edema
[2016-10-01 12:00] VITALS: BP 112/66
--- NOTE | 2016-10-01 15:21 | Infectious Diseases Prog Note ---
Infectious Disease Consult Infectious Disease Consult Infectious Disease Consult INFECTIOUS DISEASE CONSULTATION DATE OF CONSULTATION: 01Oct2016 CONSULTING PHYSICIAN: Radhames Canchola M.D., [facility], [facility] Covering for Dr. Milan REFERRING PHYSICIAN: Dr. 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 Started on IV vancomycin in ER for the transient hypotension and b /l lower extremity erythema. In ER noted to have Chronic respiratory failure with hypercapnia, Hyperkalemia, Anemia, Renal failure, and has been given aminocaproic acid. recent infection hx notable for LLE cellulitis in April2016 treated with 10D IV vanc/levofloxacin /aztreonam, VRE UTI treated with linezolid in April2016, and s/p 10D IV ertapenem completed on 18sep2016 for ESBL E coli UTI. she does not have any indwelling catheters. b/l dopplers obtained at admission negative for DVT. 1v CXR w/ pulmonary edema but no infiltrate. ROS not able to be obtained. PAST MEDICAL HISTORY: VDRF Obesity CHF HTN COPD GERD. DM afib on apixaban severe pulmonary HTN LLE cellulitis [id number]--[id number] with 10d IV vanc/levofloxacin/aztreonam VRE UTI--[id number]--[id number] with Linezolid ESBL UTI--[id number]--[id number] with IV ertapenem completed on 18sep2016 Past Surgical History: s/p trach ALLERGIES: No known drug allergies. ANTIBIOTICS: Home and hospitalized medications reviewed. Current abx: IV vancomycin (30sep2016-- Scheduled Apixaban (Eliquis), 2.5 MG PO BID, (Reported) Calcitriol (Calcitriol), 0.25 MCG ORAL DAILY, (Reported) Calcium Carbonate (Calcium Carbonate), 1,250 MG ORAL BID, (Reported) Cranberry Extract (Cranberry), 200 MG PO DAILY, (Reported) Cyanocobalamin (Vitamin B-12)* (Vitamin B-12*), 3,000 MCG ORAL DAILY, (Reported) Docusate Sodium* (Docusate Sodium*), 100 MG ORAL TWICE A DAY, (Reported) Fluticasone Propionate* (Fluticasone Propionate*), 1 SPRAY NASAL DAILY, ( Reported) Folic Acid* (Folic Acid*), 1 MG ORAL DAILY, (Reported) Folic Acid/Vitamin B Comp W-C (Jessi-Barbara Tablet), 0.8 MG PO DAILY, (Reported) Furosemide* (Lasix*), 20 MG ORAL TWICE A DAY, (Reported) Gabapentin* (Gabapentin*), 600 MG ORAL TWICE A DAY, (Reported) Lactobacillus Acidophilus (Probiotic), 1 EACH PO DAILY, (Reported) Letrozole (Femara), 2.5 MG ORAL DAILY, (Reported) Lidocaine (Lidocaine), 700 MG TP EVERY 24 HOURS, (Reported) Nutritional Supplement (Hi-Mark), 1,000 ML PO TID, (Reported) Pantoprazole (Pantoprazole), 40 MG ORAL DAILY, (Reported) Polyethylene Glycol 3350* (Miralax*), 17 GM ORAL DAILY, (Reported) Pravastatin Sod* (Pravastatin Sod*), 20 MG ORAL BEDTIME, (Reported) Prednisone* (Prednisone*), 10 MG ORAL DAILY, (Reported) Sevelamer Carbonate (Renvela), 800 MG ORAL THREE TIMES A DAY Sildenafil Citrate (Revatio), 20 MG ORAL THREE TIMES A DAY Scheduled PRN Acetaminophen* (Acetaminophen*), 650 MG ORAL Q4HR PRN for Fever/Headache/Mild Pain, (Reported) Ipratropium/Albuterol Sulfate (DuoNeb 0.5-3(2.5)mg/3ml), 3 ML HHN Q6HR PRN for Shortness of Breath, (Reported) SOCIAL HISTORY: resident of long-term care facility FAMILY HISTORY: Noncontributory REVIEW OF SYSTEMS: 11 point ROS negative except for that mentioned in HPI above. PHYSICAL EXAM: VITAL SIGNS: Tm 99.1F vital signs reviewed GEN: trach, on vent, full vent support, FIO2 30%, elevated peak pressures, non toxic appearing HEENT: Mild pale conjunctiva. oral mucosa dry, pharynx w/o exudate or effusion. No icterus. Head normocephalic, neck supple. neck thick. no cellulitis. NECK: No cervical LAD CHEST: scattered rhonchi, decreased breast sounds at base HEART: S1 and S2, no murmurs, no rubs. ABDOMEN: soft, obese, non tender, non distended, normoactive bowel sounds. EXTREMITIES: No cyanosis, no clubbing, has chronic ble lymphedema. circumferential erythema, cobblestoning of skin, no skin tears, + xerosis, hyperkeratotic. no onychomycosis. NEUROLOGIC: Awake, alert, no focal neurologic motor deficits. : no external lesions LYMPH: nl LAD RECTAL: deferred. soft dark brown stool in bed LABORATORY AND DIAGNOSTIC DATA: WBC 10.1-->8 hgb 8.2, plt 230, N 80.1% ESR 93mm/hr ABG 7.4/61.3/115/10.9/98% bmp 142/4.8/96/32/64/2.8/126 ca 9.1, phos 4.4 ferritin 573 LDH 273, alb 2.9 u/a 1.015/2-4 WBC/1+ LE PTT 44, PT 14.5 pending: blood cx, urine cx, sputum cx, MRSA screen RADIOLOGY: Patient : YUVAL RIVERA Referring Physician: Pura Perez M.D. ID Number: [id number] Service Date: 09/30/16 : 1940 Report Date: 09/30/16 Gender: F Accession No.: [id number] Location: 2W Procedure: XRAY Chest 1v Indication: Dyspnea Comparison: 09/22/16 A single view chest radiograph was obtained. Findings: Tracheostomy, moderate cardiomegaly and pulmonary vascular congestion again demonstrated. Interstitial edema suspected. Bones are osteopenic. Impression: CHF/interstitial edema b/l dopplers negative for DVT. + edema ASSESSMENT AND PLAN ASSESSMENT: 1) UGIB 2) hypovolemic shock, improved 3) borderline leukocytosis, resovled 4) afebrile 5) BLE lymphedema. unlikely acute BLE cellulitis or erysipelas s/p BLE dopplers negative for DVT 6) elevated ESR (93mm/hr), non specific, in setting of acute bleed 7) hypercapneic resp failure, VDRF 8) VERONICA 9) hyperferritenemia, non specific, acute phase reactant 10) h/o VRE colonization PLAN: --continue empiric IV vancomycin for now, pending blood cx, but likely d/c in next 48 hrs if negative --elevate BLE --consider compression stockings to BLE --monitor CBC --monitor temp, hemodynamics --f/u urine cx --trach care, asp precautions Thank you for this consultation. Will continue to follow. Covering for Dr. Milan, please call me with questions, Radhames Canchola M.D. Oct 01, 2016 15:21
[2016-10-01 16:00] VITALS: BP 129/63
[2016-10-01] MEDS ORDERED: Miralax 17gm pkt GT PRN (16:30)
[2016-10-01] MEDS ORDERED: D5W 275ml ONE (16:44)
[2016-10-01] MEDS ORDERED: 1/2 NS 1000ml IV ONE (16:44)
[2016-10-01] MEDS ORDERED: Tubing IV Secondary IV ONE (16:44)
[2016-10-01] MEDS ORDERED: NS 275ml ONE (16:44)
[2016-10-01] MEDS ORDERED: Tubing Blood Filter IV ONE (16:44)
[2016-10-01] MEDS: Revatio 20mg tab GT SCH (17:14)
[2016-10-01] MEDS: Vancomycin 1.5gm/D5W 250ml 250 ML IVPB SCH (18:07)
--- NOTE | 2016-10-01 20:11 | History and Physical ---
History of Present Illness General Date patient seen: Oct 01, 2016 Reason for Hospitalization: Gastrointestinal Bleed Present Illness Allergies: Coded Allergies: AMOXICILLIN (Verified Allergy, Mild, RASH, 09/30/16) MORPHINE (Unverified Allergy, Unknown, 09/30/16) PENICILLINS (Unverified Allergy, Unknown, 09/30/16) Medication History Scheduled Apixaban (Eliquis), 2.5 MG PO BID, (Reported) Calcitriol (Calcitriol), 0.25 MCG ORAL DAILY, (Reported) Calcium Carbonate (Calcium Carbonate), 1,250 MG ORAL BID, (Reported) Cranberry Extract (Cranberry), 200 MG PO DAILY, (Reported) Cyanocobalamin (Vitamin B-12)* (Vitamin B-12*), 3,000 MCG ORAL DAILY, (Reported) Docusate Sodium* (Docusate Sodium*), 100 MG ORAL TWICE A DAY, (Reported) Fluticasone Propionate* (Fluticasone Propionate*), 1 SPRAY NASAL DAILY, ( Reported) Folic Acid* (Folic Acid*), 1 MG ORAL DAILY, (Reported) Folic Acid/Vitamin B Comp W-C (Jessi-Barbara Tablet), 0.8 MG PO DAILY, (Reported) Furosemide* (Lasix*), 20 MG ORAL TWICE A DAY, (Reported) Gabapentin* (Gabapentin*), 600 MG ORAL TWICE A DAY, (Reported) Lactobacillus Acidophilus (Probiotic), 1 EACH PO DAILY, (Reported) Letrozole (Femara), 2.5 MG ORAL DAILY, (Reported) Lidocaine (Lidocaine), 700 MG TP EVERY 24 HOURS, (Reported) Nutritional Supplement (Hi-Mark), 1,000 ML PO TID, (Reported) Pantoprazole (Pantoprazole), 40 MG ORAL DAILY, (Reported) Polyethylene Glycol 3350* (Miralax*), 17 GM ORAL DAILY, (Reported) Pravastatin Sod* (Pravastatin Sod*), 20 MG ORAL BEDTIME, (Reported) Prednisone* (Prednisone*), 10 MG ORAL DAILY, (Reported) Sevelamer Carbonate (Renvela), 800 MG ORAL THREE TIMES A DAY Sildenafil Citrate (Revatio), 20 MG ORAL THREE TIMES A DAY Scheduled PRN Acetaminophen* (Acetaminophen*), 650 MG ORAL Q4HR PRN for Fever/Headache/Mild Pain, (Reported) Ipratropium/Albuterol Sulfate (DuoNeb 0.5-3(2.5)mg/3ml), 3 ML HHN Q6HR PRN for Shortness of Breath, (Reported) Patient History Healthcare decision maker Resuscitation status Full Code Advanced Directive on File Yes Physical Exam Last 24 Hour Vital Signs Date Time Temp Pulse Resp B/P (MAP) Pulse Ox O2 Delivery O2 Flow Rate FiO2 10/01/16 19:12 80 14 40 10/01/16 17:09 91 14 40 10/01/16 16:33 84 10/01/16 16:00 98.4 84 24 129/63 93 Mechanical Ventilator 30 10/01/16 16:00 30 10/01/16 15:26 80 14 40 10/01/16 13:01 84 14 40 10/01/16 12:00 86 10/01/16 12:00 97.9 74 14 112/66 97 Mechanical Ventilator 30 10/01/16 12:00 30 10/01/16 10:31 95 15 40 10/01/16 08:54 87 15 40 10/01/16 08:00 97.7 94 18 137/76 95 Mechanical Ventilator 10/01/16 08:00 94 10/01/16 08:00 30 10/01/16 07:18 92 18 40 10/01/16 04:52 78 14 40 10/01/16 04:00 98.0 82 14 112/65 99 Mechanical Ventilator 40 10/01/16 04:00 30 10/01/16 04:00 73 10/01/16 03:02 100 16 40 10/01/16 01:30 102 14 40 10/01/16 00:00 93 10/01/16 00:00 30 09/30/16 23:30 106 14 40 09/30/16 23:01 98.7 96 16 99/57 98 Mechanical Ventilator 40 09/30/16 23:00 98.6 96 16 123/61 98 Mechanical Ventilator 40 09/30/16 21:24 98.7 94 16 99/57 98 Room Air 40 09/30/16 21:24 98.7 93 16 09/30/16 21:07 108 16 40 09/30/16 21:05 99.1 93 16 98/57 98 Room Air 40 09/30/16 21:05 99.1 93 16 Intake and Output 10/01/16 10/02/16 19:00 07:00 Intake Total 900 ml 200 ml Balance 900 ml 200 ml Intake IV Total 900 ml 200 ml # Bowel Movements 3 Laboratory Tests Test 09/30/16 20:15 10/01/16 03:00 10/01/16 03:40 10/01/16 06:30 Urine Color Yellow Pale yellow Urine Appearance Clear Clear Urine pH 5 (4.5-8.0) 6 (4.5-8.0) Urine Specific [place] 1.015 (1.005-1.035) 1.010 (1.005-1.035) Urine Protein 1+ (NEGATIVE) H 2+ (NEGATIVE) H Urine Glucose (UA) Negative (NEGATIVE) Negative (NEGATIVE) Urine Ketones Negative (NEGATIVE) Negative (NEGATIVE) Urine Occult Blood 4+ (NEGATIVE) H 3+ (NEGATIVE) H Urine Nitrite Negative (NEGATIVE) Negative (NEGATIVE) Urine Bilirubin 1+ (NEGATIVE) H Negative (NEGATIVE) Urine Ictotest Negative Urine Urobilinogen Normal MG/DL (0.0-1.0) Normal MG/DL (0.0-1.0) Urine Leukocyte Esterase 1+ (NEGATIVE) H 2+ (NEGATIVE) H Urine RBC 5-10 /HPF (0 - 2) H 10-15 /HPF (0 - 2) H Urine WBC 2-4 /HPF (0 - 2) 2-4 /HPF (0 - 2) Urine Squamous Epithelial Cells Few /LPF (NONE/OCC) Few /LPF (NONE/OCC) Urine Amorphous Sediment Moderate /LPF (NONE) H Urine Bacteria Moderate /HPF (NONE) H Few /HPF (NONE) Urine Yeast Few /HPF (NONE) H Stool Occult Blood Positive (NEGATIVE) White Blood Count 8.0 K/UL (4.8-10.8) Red Blood Count 2.89 M/UL (4.20-5.40) L Hemoglobin 8.6 G/DL (12.0-16.0) L Hematocrit 26.7 % (37.0-47.0) L Mean Corpuscular Volume 92 FL (80-99) Mean Corpuscular Hemoglobin 29.7 PG (27.0-31.0) Mean Corpuscular Hemoglobin Concent 32.2 G/DL (32.0-36.0) Red Cell Distribution Width 14.1 % (11.6-14.8) Platelet Count 198 K/UL (150-450) Mean Platelet Volume 5.3 FL (6.5-10.1) L Neutrophils (%) (Auto) 79.7 % (45.0-75.0) H Lymphocytes (%) (Auto) 11.2 % (20.0-45.0) L Monocytes (%) (Auto) 7.4 % (1.0-10.0) Eosinophils (%) (Auto) 1.2 % (0.0-3.0) Basophils (%) (Auto) 0.5 % (0.0-2.0) Differential Total Cells Counted 100 Neutrophils % (Manual) 80 % (45-75) H Lymphocytes % (Manual) 13 % (20-45) L Monocytes % (Manual) 6 % (1-10) Eosinophils % (Manual) 1 % (0-3) Basophils % (Manual) 0 % (0-2) Band Neutrophils 0 % (0-8) Platelet Estimate Adequate Platelet Morphology Normal Hypochromasia 1+ Anisocytosis 1+ Erythrocyte Sedimentation Rate 93 MM/HR (0-30) H Reticulocyte Count 1.1 % (0.0-2.0) Prothrombin Time 12.0 SEC (9.30-11.50) H Prothromb Time International Ratio 1.1 (0.9-1.1) Activated Partial Thromboplast Time 29 SEC (23-33) Sodium Level 142 mEQ/L (135-145) Potassium Level 4.8 mEQ/L (3.4-4.9) Chloride Level 96 mEQ/L (98-107) L Carbon Dioxide Level 32 mEQ/L (20-30) H Anion Gap 14 (5-15) Blood Urea Nitrogen 64 mg/dL (7-23) H Creatinine 2.8 mg/dL (0.5-0.9) H Estimat Glomerular Filtration Rate mL/min (>60) Glucose Level 126 mg/dL (74-106) H Uric Acid 10.2 mg/dL (3.0-7.5) H Calcium Level 9.1 mg/dL (8.6-10.2) Phosphorus Level 4.4 mg/dL (2.5-4.8) Iron Level 44 ug/dL (37-145) Total Iron Binding Capacity 203 ug/dL (250-400) L Percent Iron Saturation 22 % (15-50) Unsaturated Iron Binding 159 ug/dL (112-346) Ferritin 573 ng/mL (13-150) H Lactate Dehydrogenase 273 U/L (135-230) H Total Creatine Kinase 53 U/L (26-140) Albumin 2.9 g/dL (3.5-5.2) L Carcinoembryonic Antigen 4.3 ng/mL H Vitamin B12 Level > 2000 pg/mL (211-946) H Methylmalonic Acid Pending Folate Pending Homocystine Pending Urine Eosinophils None seen Urine Random Sodium 31 mmol/L Urine Potassium Timed 44 mmol/L Height (Feet): 5 Height (Inches): 5.00 Weight (Pounds): 341 Medications Current Medications Medications (Trade) Dose Ordered Sig/Kalyn Route PRN Reason Start Time Stop Time Status Last Admin Dose Admin Acetaminophen (Tylenol) 650 mg Q4H PRN ORAL FEVER 09/30/16 21:30 10/30/16 21:29 Albuterol/ Ipratropium (DuoNeb 0.5-3(2.5)mg/3ml) 3 ml Q4H PRN HHN Shortness of Breath 09/30/16 21:30 10/05/16 21:29 Dextrose (Dextrose 50%) STAT PRN IV Hypoglycemia 09/30/16 21:30 10/30/16 21:29 Furosemide (Lasix) 20 mg TWICE A DAY GT 10/01/16 18:00 10/31/16 08:59 10/01/16 17:14 Gabapentin (Neurontin) 600 mg TWICE A DAY GT 10/01/16 18:00 10/31/16 08:59 10/01/16 17:14 Lorazepam (Ativan 2mg/ml 1ml) 2 mg Q2H PRN IV For Anxiety 09/30/16 21:30 10/07/16 21:29 Ondansetron HCl (Zofran) 4 mg Q6H PRN IVP Nausea & Vomiting 09/30/16 21:30 10/30/16 21:29 10/01/16 08:57 Polyethylene Glycol (Miralax) 17 gm DAILYPRN PRN GT Constipation 10/01/16 16:30 10/30/16 21:29 Sevelamer Carbonate (Renvela) 800 mg THREE TIMES A DAY ORAL 10/01/16 09:00 10/31/16 08:59 8/25/17 17:14 Sildenafil Citrate (Revatio) 20 mg THREE TIMES A DAY GT 10/01/16 18:00 10/31/16 08:59 10/01/16 17:14 Sodium Chloride 1,000 ml @ 75 mls/hr [id number] IV 09/30/16 22:30 10/30/16 22:29 10/01/16 13:26 Vancomycin HCl (Vanco rx to dose) 1 ea DAILY PRN MISC PRN RX PROTOCOL 10/01/16 16:45 10/31/16 16:44 Vancomycin HCl/ Dextrose 250 ml @ 125 mls/hr Q24H IVPB 10/01/16 18:00 10/06/16 17:59 10/01/16 18:07 Assessment/Plan Assessment/Plan H & P dictated [id number] MD An Cardona Peiman MD Oct 01, 2016 20:11
[2016-10-01 20:33] VITALS: BP 110/56
[2016-10-02 00:51] VITALS: BP 108/67
[2016-10-02 04:00] VITALS: BP 120/62
[2016-10-02 05:47] LABS: BASOPHILS % (AUTO) 0.9 % (0.0-2.0); EOSINOPHILS % (AUTO) 3.2 % (0.0-3.0); LYMPHOCYTES % (AUTO) 19.8 % (20.0-45.0); MEAN CORPUSCULAR HEMOGLOBIN 29.9 PG (27.0-31.0); MEAN CORPUSCULAR HGB CONC 32.6 G/DL (32.0-36.0); MEAN CORPUSCULAR VOLUME 92 FL (80-99); MEAN PLATELET VOLUME 5.5 FL (6.5-10.1); MONOCYTES % (AUTO) 6.1 % (1.0-10.0); PLATELET COUNT 205 K/UL (150-450); RED BLOOD COUNT 2.85 M/UL (4.20-5.40); WHITE BLOOD COUNT 7.9 K/UL (4.8-10.8)
--- NOTE | 2016-10-02 06:15 | Consultation ---
DATE OF CONSULTATION: 09/30/2016 HEMATOLOGY/ONCOLOGY CONSULTATION REQUESTING PHYSICIAN: Elidia Rene M.D. REASON FOR CONSULTATION: Evaluation of anemia, hemoglobin 8.2. IDENTIFICATION DATA: The patient is a pleasant 75-year-old female who was admitted recently approximately a week ago. She has a past medical history, which is significant for coffee-ground emesis in the past, chronic respiratory failure, chronic COPD, morbid obesity, CHF, diabetes mellitus, and atrial fibrillation, was on Eliquis in the past, at this time presents again with coffee-ground emesis. She had a similar presentation on last admission approximately two episodes noted in her facility and she was transferred. Hemoglobin was noted to be 8.2. Hematology service was consulted for evaluation as well as GI team. PAST MEDICAL HISTORY: As noted above. CODE STATUS: Full Code. ALLERGIES: Allergic to amoxicillin and penicillin. REVIEW OF SYSTEMS: Difficult to obtain . PHYSICAL EXAMINATION: VITAL SIGNS: Blood pressure 152/63, pulse of 83, respiratory rate 12, and O2 saturation 100% on BiPAP. GENERAL: No acute distress. She is morbidly obese. PULMONARY: Decreased breath sounds. CARDIOVASCULAR: Irregularly irregular. ABDOMEN: Soft. Positive bowel sounds. Nondistended. EXTREMITIES: A 1 to 2+ edema noted. NEUROLOGIC: Grossly nonfocal. LABORATORY DATA: Currently, WBC 10.1, hemoglobin 8.2, hematocrit 24, and platelet count of 230,000. on last admission was 37 and TIBC of 30. B12 160 only. Folate . Direct bilirubin 0.2. AST 17 and ALT 5. Coagulation INR 1.4. ASSESSMENT: 1. Acute anemia, status post blood transfusion, this is recurrent likely secondary to gastrointestinal bleed. 2. Anemia, secondary to chronic disease. A ferritin has been ordered. Also, B12 repeated. 3. Anemia, secondary to potentially B12 deficiency. We will order for homocysteine and methylmalonic acid levels. 4. Respiratory failure requiring BiPAP in the past, status post tracheostomy on 09/20/2016. 5. Severe pulmonary hypertension. 6. Chronic obstructive pulmonary disease. 7. Obstructive sleep apnea. 8. Morbid obesity. 9. Cor pulmonale. I appreciate the consultation. Serafin Haines M.D. DR: Anh JOB#: [id number] CC:
[2016-10-02 06:20] LABS: ALANINE AMINOTRANSFERASE 5 U/L (3-33); ALBUMIN/GLOBULIN RATIO 0.7 (1.0-2.7); ANION GAP 12 (5-15); ASPARTATE AMINO TRANSFERASE 11 U/L (5-40); CALCIUM 8.9 mg/dL (8.6-10.2); CARBON DIOXIDE 33 mEQ/L (20-30); CHLORIDE 96 mEQ/L (98-107); CREATININE 2.7 mg/dL (0.5-0.9); HEMOLYSIS 0; MAGNESIUM 1.8 mg/dL (1.7-2.5); PHOSPHORUS 4.3 mg/dL (2.5-4.8); POTASSIUM 4.1 mEQ/L (3.4-4.9); SODIUM 141 mEQ/L (135-145); TOTAL PROTEIN 6.7 g/dL (6.6-8.7)
[2016-10-02 06:21] LABS: INR 1.2 (0.9-1.1); PROTHROMBIN TIME 12.1 SEC (9.30-11.50)
--- NOTE | 2016-10-02 07:45 | Consultation ---
DATE OF CONSULTATION: 10/01/2016 GASTROENTEROLOGY CONSULTATION CHIEF COMPLAINT: I was asked to see this patient by Dr. Elidia Rene as well as Dr. Manny Nolan for evaluation of gastrointestinal bleeding. HISTORY OF PRESENT ILLNESS: The patient is a pleasant unfortunate 75-year-old white woman with morbid obesity and chronic respiratory failure, who was recently admitted to the hospital and underwent a tracheostomy tube placement. She had an episode of upper gastrointestinal bleeding, but at that time, she did not undergo endoscopy since her breathing was so critical on the BiPAP mask. By the time she had undergone her tracheostomy, her breathing was no longer an issue and she elected to not have it done. She was discharged to the half-way, but now returns to the hospital for recurrent bleeding. Of note, the patient is on chronic anticoagulation and has a risk for further bleeding. She has had a history of endoscopy and colonoscopy at [facility] in 2015. PAST MEDICAL HISTORY: History of diabetes, morbid obesity, hypertension, chronic heart failure, pulmonary hypertension, methicillin-resistant Staphylococcus aureus colonization, vancomycin-resistant Enterococcus colonization, anemia, chronic obstructive pulmonary disease, obstructive sleep apnea, breast cancer, hypocapnic respiratory failure requiring BiPAP use, chronic lower extremity edema, venous stasis edema, and history of atrial fibrillation requiring long-term anticoagulation. MEDICATIONS: See the chart list for details. ALLERGIES: Penicillin and morphine. FAMILY HISTORY: Noncontributory. SOCIAL HISTORY: The patient does not smoke or drink alcohol and currently in a half-way on a tracheostomy status. REVIEW OF SYSTEMS: Otherwise negative. PHYSICAL EXAMINATION: GENERAL: A debilitated white woman, seen in her room. HEENT: Normocephalic and atraumatic. Sclerae anicteric. Oropharynx clear. NECK: Supple. CHEST: Clear to auscultation. CARDIOVASCULAR: Revealed a regular rate. ABDOMEN: Soft and obese with good bowel sounds. EXTREMITIES: Reveals no edema. NEUROLOGIC: Nonfocal. LABORATORY DATA: Noted. ASSESSMENT: This patient presents with recurrent upper gastrointestinal bleeding of unclear etiology. The etiology most likely was either gastritis or gastroesophageal reflux. The patient is on long-term Xarelto prescription and her last dose was last night and therefore it would not be safe at this time for endoscopy. I would wait approximately 72 hours since the last dose of Xarelto and then schedule endoscopy, which will be likely Tuesday morning. The procedure can be done more urgently over the weekend should there be any acute bleeding problems over the weekend. Indications, risks, alternatives, and complications were explained to the patient and informed consent was obtained. RECOMMENDATIONS: 1. Keep the patient NPO for tonight and perhaps try clear liquid diet in the next day or two. 2. Follow up CBC. 3. Hold anticoagulation. 4. Proton pump inhibitor. 5. Endoscopy early next week and/or sooner if the patient is unstable. Thank you for asking me to participate in the care of this patient. Mary Rodriguez M.D. DR: TRELL JOB#: [id number] CC: LOBO
[2016-10-02 08:00] VITALS: BP 120/73
[2016-10-02] MEDS: Revatio 20mg tab GT SCH ×3 (08:23→17:08)
--- NOTE | 2016-10-02 09:17 | Diagnostic Imaging Report ---
Indication:Elevated Bun and Creatinine. Technique: Grayscale and duplex Doppler imaging of the kidneys performed. Comparison: None Findings: Study is technically limited because of patient large body habitus. The left kidney is visualized. There is a small amount of ascites. The proximal IVC is unremarkable. Right kidney measures 10.5 CM in length. There is no hydronephrosis of the right kidney demonstrated. Rowland catheter is present. As such the bladder is not seen. Impression: Limited evaluation due to large body habitus. Left kidney not seen. No gross abnormalities of the right kidney.
[2016-10-02 10:16] LABS: OTHERS PATHOLOGIST COMMENT
[2016-10-02 12:00] VITALS: BP 125/75
--- NOTE | 2016-10-02 13:40 | General Progress Note ---
Assessment/Plan Assessment/Plan Assessment - UGIB, recurrent - atrial fib, anticoagulation on hold - resp failure, s/p trach - Obesity - Anemia - Azotemia Recommendations - po diet OK - PPI - Monitor CBC - EGD Tuesday or Tuesday Subjective Allergies: Coded Allergies: AMOXICILLIN (Verified Allergy, Mild, RASH, 09/30/16) MORPHINE (Unverified Allergy, Unknown, 09/30/16) PENICILLINS (Unverified Allergy, Unknown, 09/30/16) Subjective Smiling, watching TV no events overnight off of Xarelto x 36 hours Objective Last 24 Hour Vital Signs Date Time Temp Pulse Resp B/P (MAP) Pulse Ox O2 Delivery O2 Flow Rate FiO2 10/02/16 12:00 98.0 70 18 125/75 99 Mechanical Ventilator 30 10/02/16 10:40 88 14 40 10/02/16 08:43 89 17 40 10/02/16 08:00 95 10/02/16 08:00 98.6 76 18 120/73 98 Mechanical Ventilator 30 10/02/16 08:00 30 10/02/16 07:28 79 14 40 10/02/16 05:04 78 14 40 10/02/16 04:00 98.4 67 14 120/62 99 Mechanical Ventilator 30 10/02/16 04:00 97 10/02/16 04:00 30 10/02/16 02:59 88 14 40 10/02/16 00:58 89 19 40 10/02/16 00:51 98.3 86 14 108/67 96 Mechanical Ventilator 30 10/02/16 00:11 30 10/02/16 00:00 70 10/01/16 23:12 86 14 40 10/01/16 21:10 82 14 40 10/01/16 20:33 99.0 77 14 110/56 97 Mechanical Ventilator 30 10/01/16 20:00 80 10/01/16 20:00 30 10/01/16 19:12 80 14 40 10/01/16 17:09 91 14 40 10/01/16 16:33 84 10/01/16 16:00 98.4 84 24 129/63 93 Mechanical Ventilator 30 10/01/16 16:00 30 10/01/16 15:26 80 14 40 Intake and Output 10/02/16 10/03/16 19:00 07:00 Intake Total 300 ml Balance 300 ml Intake IV Total 300 ml Laboratory Tests 10/02/16 04:25: White Blood Count 7.9, Red Blood Count 2.85L, Hemoglobin 8.5L, Hematocrit 26.1L , Mean Corpuscular Volume 92, Mean Corpuscular Hemoglobin 29.9, Mean Corpuscular Hemoglobin Concent 32.6, Red Cell Distribution Width 14.0, Platelet Count 205, Mean Platelet Volume 5.5L, Neutrophils (%) (Auto) 70.0, Lymphocytes ( %) (Auto) 19.8L, Monocytes (%) (Auto) 6.1, Eosinophils (%) (Auto) 3.2H, Basophils (%) (Auto) 0.9, Prothrombin Time 12.1H, Prothromb Time International Ratio 1.2H, Activated Partial Thromboplast Time 27, Sodium Level 141, Potassium Level 4.1, Chloride Level 96L, Carbon Dioxide Level 33H, Anion Gap 12, Blood Urea Nitrogen 66H, Creatinine 2.7H, Estimat Glomerular Filtration Rate , Glucose Level 104, Calcium Level 8.9, Phosphorus Level 4.3, Magnesium Level 1.8 , Total Bilirubin 0.6, Aspartate Amino Transf (AST/SGOT) 11, Alanine Aminotransferase (ALT/SGPT) 5, Alkaline Phosphatase 62, Total Protein 6.7, Albumin 2.9L, Globulin 3.8, Albumin/Globulin Ratio 0.7L Height (Feet): 5 Height (Inches): 5.00 Weight (Pounds): 343 Objective WD Obese WW NCAT (+) trach Coarse BS RR Soft Obese abd , No TTP no edema non focal BRETT DALE Oct 02, 2016 13:40
--- NOTE | 2016-10-02 14:15 | Infectious Diseases Prog Note ---
Assessment/Plan Assessment/Plan ASSESSMENT: 1) UGIB 2) hypovolemic shock, improved 3) borderline leukocytosis, resolved 4) afebrile 5) BLE lymphedema. typical hypertrophic skin, cobblestoning, overlying scale and xerosis. erythema improving with elevation and on IV vancomycin. 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 Milan Subjective ROS Limited/Unobtainable: Yes Allergies: Coded Allergies: AMOXICILLIN (Verified Allergy, Mild, RASH, 09/30/16) MORPHINE (Unverified Allergy, Unknown, 09/30/16) PENICILLINS (Unverified Allergy, Unknown, 09/30/16) Objective Vital Signs Last 24 Hour Vital Signs Date Time Temp Pulse Resp B/P (MAP) Pulse Ox O2 Delivery O2 Flow Rate FiO2 10/02/16 13:06 82 14 40 10/02/16 12:00 98.0 70 18 125/75 99 Mechanical Ventilator 30 10/02/16 12:00 84 10/02/16 12:00 30 10/02/16 10:40 88 14 40 10/02/16 08:43 89 17 40 10/02/16 08:00 95 10/02/16 08:00 98.6 76 18 120/73 98 Mechanical Ventilator 30 10/02/16 08:00 30 10/02/16 07:28 79 14 40 10/02/16 05:04 78 14 40 10/02/16 04:00 98.4 67 14 120/62 99 Mechanical Ventilator 30 10/02/16 04:00 97 10/02/16 04:00 30 10/02/16 02:59 88 14 40 10/02/16 00:58 89 19 40 10/02/16 00:51 98.3 86 14 108/67 96 Mechanical Ventilator 30 10/02/16 00:11 30 10/02/16 00:00 70 10/01/16 23:12 86 14 40 10/01/16 21:10 82 14 40 10/01/16 20:33 99.0 77 14 110/56 97 Mechanical Ventilator 30 10/01/16 20:00 80 10/01/16 20:00 30 10/01/16 19:12 80 14 40 10/01/16 17:09 91 14 40 10/01/16 16:33 84 10/01/16 16:00 98.4 84 24 129/63 93 Mechanical Ventilator 30 10/01/16 16:00 30 10/01/16 15:26 80 14 40 Height (Feet): 5 Height (Inches): 5.00 Weight (Pounds): 343 Objective GEN: trach, on vent, full vent support, FIO2 30%, elevated peak pressures, non toxic appearing, communicative HEENT: Mild pale conjunctiva. oral mucosa dry, pharynx w/o exudate or effusion. No icterus. Head normocephalic, neck supple. neck thick. no cellulitis. NECK: No cervical LAD CHEST: scattered rhonchi, decreased breast sounds at base HEART: S1 and S2, no murmurs, no rubs. ABDOMEN: soft, obese, non tender, non distended, normoactive bowel sounds. EXTREMITIES: No cyanosis, no clubbing, has chronic ble lymphedema. circumferential erythema, cobblestoning of skin, no skin tears, + xerosis, hyperkeratotic. no onychomycosis. NEUROLOGIC: Awake, alert, no focal neurologic motor deficits. : no external lesions LYMPH: nl LAD RECTAL: deferred. Microbiology Date/Time Source Procedure Growth Status 09/30/16 19:40 Blood Blood Culture - Preliminary NO GROWTH AFTER 24 HOURS Resulted 09/30/16 19:30 Blood Blood Culture - Preliminary NO GROWTH AFTER 24 HOURS Resulted 09/30/16 21:30 Nasal Nares MRSA Culture - Final NO METHICILLIN RESISTANT STAPH AUREUS... Complete 09/30/16 20:15 Urine,Clean Catch Urine Culture - Preliminary NO GROWTH AFTER 24 HOURS Resulted Laboratory Tests Test 10/02/16 04:25 White Blood Count 7.9 K/UL (4.8-10.8) Red Blood Count 2.85 M/UL (4.20-5.40) L Hemoglobin 8.5 G/DL (12.0-16.0) L Hematocrit 26.1 % (37.0-47.0) L Mean Corpuscular Volume 92 FL (80-99) Mean Corpuscular Hemoglobin 29.9 PG (27.0-31.0) Mean Corpuscular Hemoglobin Concent 32.6 G/DL (32.0-36.0) Red Cell Distribution Width 14.0 % (11.6-14.8) Platelet Count 205 K/UL (150-450) Mean Platelet Volume 5.5 FL (6.5-10.1) L Neutrophils (%) (Auto) 70.0 % (45.0-75.0) Lymphocytes (%) (Auto) 19.8 % (20.0-45.0) L Monocytes (%) (Auto) 6.1 % (1.0-10.0) Eosinophils (%) (Auto) 3.2 % (0.0-3.0) H Basophils (%) (Auto) 0.9 % (0.0-2.0) Prothrombin Time 12.1 SEC (9.30-11.50) H Prothromb Time International Ratio 1.2 (0.9-1.1) H Activated Partial Thromboplast Time 27 SEC (23-33) Sodium Level 141 mEQ/L (135-145) Potassium Level 4.1 mEQ/L (3.4-4.9) Chloride Level 96 mEQ/L (98-107) L Carbon Dioxide Level 33 mEQ/L (20-30) H Anion Gap 12 (5-15) Blood Urea Nitrogen 66 mg/dL (7-23) H Creatinine 2.7 mg/dL (0.5-0.9) H Estimat Glomerular Filtration Rate mL/min (>60) Glucose Level 104 mg/dL (74-106) Calcium Level 8.9 mg/dL (8.6-10.2) Phosphorus Level 4.3 mg/dL (2.5-4.8) Magnesium Level 1.8 mg/dL (1.7-2.5) Total Bilirubin 0.6 mg/dL (0.0-1.2) Aspartate Amino Transf (AST/SGOT) 11 U/L (5-40) Alanine Aminotransferase (ALT/SGPT) 5 U/L (3-33) Alkaline Phosphatase 62 U/L (35-104) Total Protein 6.7 g/dL (6.6-8.7) Albumin 2.9 g/dL (3.5-5.2) L Globulin 3.8 g/dL Albumin/Globulin Ratio 0.7 (1.0-2.7) L Current Medications Medications (Trade) Dose Ordered Sig/Kalyn Route PRN Reason Start Time Stop Time Status Last Admin Dose Admin Acetaminophen (Tylenol) 650 mg Q4H PRN ORAL FEVER 09/30/16 21:30 10/30/16 21:29 Albuterol/ Ipratropium (DuoNeb 0.5-3(2.5)mg/3ml) 3 ml Q4H PRN HHN Shortness of Breath 09/30/16 21:30 10/05/16 21:29 Dextrose (Dextrose 50%) STAT PRN IV Hypoglycemia 09/30/16 21:30 10/30/16 21:29 Furosemide (Lasix) 20 mg TWICE A DAY GT 10/01/16 18:00 10/31/16 08:59 10/02/16 08:23 Gabapentin (Neurontin) 600 mg TWICE A DAY GT 10/01/16 18:00 10/31/16 08:59 10/02/16 08:23 Lorazepam (Ativan 2mg/ml 1ml) 2 mg Q2H PRN IV For Anxiety 09/30/16 21:30 10/07/16 21:29 Ondansetron HCl (Zofran) 4 mg Q6H PRN IVP Nausea & Vomiting 09/30/16 21:30 10/30/16 21:29 10/01/16 08:57 Pantoprazole (Protonix) 40 mg EVERY 12 HOURS ORAL 10/02/16 14:00 11/01/16 13:59 Polyethylene Glycol (Miralax) 17 gm DAILYPRN PRN GT Constipation 10/01/16 16:30 10/30/16 21:29 Sevelamer Carbonate (Renvela) 800 mg THREE TIMES A DAY ORAL 10/01/16 09:00 10/31/16 08:59 10/02/16 12:05 Sildenafil Citrate (Revatio) 20 mg THREE TIMES A DAY GT 10/01/16 18:00 10/31/16 08:59 10/02/16 12:05 Sodium Chloride 1,000 ml @ 75 mls/hr [id number] IV 09/30/16 22:30 10/30/16 22:29 10/02/16 01:10 Vancomycin HCl (Vanco rx to dose) 1 ea DAILY PRN MISC PRN RX PROTOCOL 10/01/16 16:45 10/31/16 16:44 Vancomycin HCl/ Dextrose 250 ml @ 125 mls/hr Q24H IVPB 10/01/16 18:00 10/06/16 17:59 10/01/16 18:07 Radhames Canchola M.D. Oct 02, 2016 14:15
--- NOTE | 2016-10-02 14:26 | General Progress Note ---
Assessment/Plan Assessment/Plan 76 y/o mobidly obese female admitted with acute gi bleed and AMS and hyptension with the following medical problems: problems: -gi bleed -chronic hypercapeic respiratory failure -cellulitis of lower legs -chronic lymphedema -mobid obesity -chf -hx of right breast cancer -anemia -DM -hyperlepedemia -MDD -CKD Plan: -clear liquid diet -possible endoscopy on Tuesday -IV vanco per pharmacy -gi prophylaxis -vent support per Dr. Rene -vte prophylaxis -continue current meds -am labs Subjective Date patient seen: Oct 02, 2016 Allergies: Coded Allergies: AMOXICILLIN (Verified Allergy, Mild, RASH, 09/30/16) MORPHINE (Unverified Allergy, Unknown, 09/30/16) PENICILLINS (Unverified Allergy, Unknown, 09/30/16) Objective Last 24 Hour Vital Signs Date Time Temp Pulse Resp B/P (MAP) Pulse Ox O2 Delivery O2 Flow Rate FiO2 10/02/16 13:06 82 14 40 10/02/16 12:00 98.0 70 18 125/75 99 Mechanical Ventilator 30 10/02/16 12:00 84 10/02/16 12:00 30 10/02/16 10:40 88 14 40 10/02/16 08:43 89 17 40 10/02/16 08:00 95 10/02/16 08:00 98.6 76 18 120/73 98 Mechanical Ventilator 30 10/02/16 08:00 30 10/02/16 07:28 79 14 40 10/02/16 05:04 78 14 40 10/02/16 04:00 98.4 67 14 120/62 99 Mechanical Ventilator 30 10/02/16 04:00 97 10/02/16 04:00 30 10/02/16 02:59 88 14 40 10/02/16 00:58 89 19 40 10/02/16 00:51 98.3 86 14 108/67 96 Mechanical Ventilator 30 10/02/16 00:11 30 10/02/16 00:00 70 10/01/16 23:12 86 14 40 10/01/16 21:10 82 14 40 10/01/16 20:33 99.0 77 14 110/56 97 Mechanical Ventilator 30 10/01/16 20:00 80 10/01/16 20:00 30 10/01/16 19:12 80 14 40 8/25/17 17:09 91 14 40 10/01/16 16:33 84 10/01/16 16:00 98.4 84 24 129/63 93 Mechanical Ventilator 30 10/01/16 16:00 30 10/01/16 15:26 80 14 40 Intake and Output 10/02/16 10/03/16 19:00 07:00 Intake Total 450 ml Balance 450 ml Intake IV Total 450 ml Laboratory Tests 10/02/16 04:25: White Blood Count 7.9, Red Blood Count 2.85L, Hemoglobin 8.5L, Hematocrit 26.1L , Mean Corpuscular Volume 92, Mean Corpuscular Hemoglobin 29.9, Mean Corpuscular Hemoglobin Concent 32.6, Red Cell Distribution Width 14.0, Platelet Count 205, Mean Platelet Volume 5.5L, Neutrophils (%) (Auto) 70.0, Lymphocytes ( %) (Auto) 19.8L, Monocytes (%) (Auto) 6.1, Eosinophils (%) (Auto) 3.2H, Basophils (%) (Auto) 0.9, Prothrombin Time 12.1H, Prothromb Time International Ratio 1.2H, Activated Partial Thromboplast Time 27, Sodium Level 141, Potassium Level 4.1, Chloride Level 96L, Carbon Dioxide Level 33H, Anion Gap 12, Blood Urea Nitrogen 66H, Creatinine 2.7H, Estimat Glomerular Filtration Rate , Glucose Level 104, Calcium Level 8.9, Phosphorus Level 4.3, Magnesium Level 1.8 , Total Bilirubin 0.6, Aspartate Amino Transf (AST/SGOT) 11, Alanine Aminotransferase (ALT/SGPT) 5, Alkaline Phosphatase 62, Total Protein 6.7, Albumin 2.9L, Globulin 3.8, Albumin/Globulin Ratio 0.7L Height (Feet): 5 Height (Inches): 5.00 Weight (Pounds): 343 General Appearance: WD/WN, mild distress, overweight EENT: PERRL/EOMI, pharynx normal Neck: non-tender, supple Cardiovascular: normal rate, regular rhythm, no gallop/murmur, no JVD Abdomen: non tender, soft, no mass Extremities: non-tender, normal inspection, no calf tenderness, swelling Edema: no edema noted Arm (L), no edema noted Arm (R), 2+ Leg (L), 2+ Leg (R), 2+ Pedal (L), 2+ Pedal (R), 2+ Generalized Edema: moderate edema Neurologic: drafter topographical II-XII grossly normal, oriented x 3, responsive Skin: warm/dry Lymphatic: normal anterior cervical (L), normal anterior cervical (R), normal posterior cervical (L), normal posterior cervical (R), normal submandibular (L) , normal submandibular (R), normal supraclavicular (L), normal supraclavicular ( R), normal axillary (L), normal axillary (R), normal inguinal (L), normal inguinal (R), normal other Manny Nolan MD Oct 02, 2016 14:26
[2016-10-02 16:00] VITALS: BP_SYST 122; BP_SYST 132; BP_DIAS 63; BP_DIAS 74
[2016-10-02] MEDS: Vancomycin 1.5gm/D5W 250ml 250 ML IVPB SCH (17:08)
--- NOTE | 2016-10-02 18:13 | Pulmonology Progress Note ---
Assessment/Plan Assessment/Plan ASSESSMENT Upper GI bleeding Hypovolemic shock 2 to GI bleeding-resolved Pickwickian syndrome Chronic hypercapnic respiratory failure VDRF/trach status Anemia Coagulopathy- corrected CKD hyperkalemia-resolved Morbid obesity PAF Severe pulmonary HTN DM HTN COPD BLE lymphedema PLAN OF CARE FRANCISCO status vent support trach care pulmonary toilet ABG with evidence of hypercapnia ( chronic), no acidosis titrate settings as needed Initial CXR with evidence of CHF fup with CXR IVF, decrease rate since started on diet and dc in am if tolerates diet no significant change in renal parameters monitor renal parameters Renal US negative avoid nephrotoxic Empiric abx preliminary urine and blood cx negative ID follows GI follows started on PPI hold a/coagulation started on CL diet as tolerated a/emetic prn endoscopy planned beginning of next week Stool OB + CEA with small elevation s/p 1 u PRBC transfusion Monitor HH and transfuse prn Coagulopathy corrected with Premarin, FFP, vit K Heme follows Wound nurse eval and wound care as per wound nurse recommendations case discussed and evaluated by supervising physician Subjective Allergies: Coded Allergies: AMOXICILLIN (Verified Allergy, Mild, RASH, 09/30/16) MORPHINE (Unverified Allergy, Unknown, 09/30/16) PENICILLINS (Unverified Allergy, Unknown, 09/30/16) Subjective afebrile, no leukocytosis no signs of respiratory distress on current settings no further episode of GI bleeding started on CL diet, tolerated Objective Last 24 Hour Vital Signs Date Time Temp Pulse Resp B/P (MAP) Pulse Ox O2 Delivery O2 Flow Rate FiO2 10/02/16 16:57 86 15 40 10/02/16 16:00 98.0 88 20 132/63 98 Mechanical Ventilator 30 10/02/16 16:00 30 10/02/16 16:00 87 10/02/16 15:09 92 15 40 10/02/16 13:06 82 14 40 10/02/16 12:00 98.0 70 18 125/75 99 Mechanical Ventilator 30 10/02/16 12:00 84 10/02/16 12:00 30 10/02/16 10:40 88 14 40 10/02/16 08:43 89 17 40 10/02/16 08:00 95 10/02/16 08:00 98.6 76 18 120/73 98 Mechanical Ventilator 30 10/02/16 08:00 30 10/02/16 07:28 79 14 40 10/02/16 05:04 78 14 40 10/02/16 04:00 98.4 67 14 120/62 99 Mechanical Ventilator 30 10/02/16 04:00 97 10/02/16 04:00 30 10/02/16 02:59 88 14 40 10/02/16 00:58 89 19 40 10/02/16 00:51 98.3 86 14 108/67 96 Mechanical Ventilator 30 10/02/16 00:11 30 10/02/16 00:00 70 10/01/16 23:12 86 14 40 10/01/16 21:10 82 14 40 10/01/16 20:33 99.0 77 14 110/56 97 Mechanical Ventilator 30 10/01/16 20:00 80 10/01/16 20:00 30 10/01/16 19:12 80 14 40 Intake and Output 10/02/16 10/03/16 19:00 07:00 Intake Total 750 ml Balance 750 ml Intake IV Total 750 ml General Appearance: no acute distress, other - bedridden, morbidly obese female vent dependent vent AC 600-14-40% HEENT: normocephalic, atraumatic, anicteric, EOMI, status post trach - Shiley # 6, secretions moderate, white, thick Respiratory/Chest: no respiratory distress, decreased breath sounds Abdomen: normal bowel sounds, soft, non tender - obese Extremities: other - +2 edema BLE with evidence of chronic lymphedema BLE Neurologic/Psychiatric: abnormal gait - bedridden , alert, responsive, other - moves all extremities Lymphatic: other - chronic lymphedema BLE Microbiology Date/Time Source Procedure Growth Status 09/30/16 19:40 Blood Blood Culture - Preliminary NO GROWTH AFTER 24 HOURS Resulted 09/30/16 19:30 Blood Blood Culture - Preliminary NO GROWTH AFTER 24 HOURS Resulted 09/30/16 21:30 Nasal Nares MRSA Culture - Final NO METHICILLIN RESISTANT STAPH AUREUS... Complete 09/30/16 20:15 Urine,Clean Catch Urine Culture - Preliminary NO GROWTH AFTER 24 HOURS Resulted Laboratory Tests 10/02/16 04:25: White Blood Count 7.9, Red Blood Count 2.85L, Hemoglobin 8.5L, Hematocrit 26.1L , Mean Corpuscular Volume 92, Mean Corpuscular Hemoglobin 29.9, Mean Corpuscular Hemoglobin Concent 32.6, Red Cell Distribution Width 14.0, Platelet Count 205, Mean Platelet Volume 5.5L, Neutrophils (%) (Auto) 70.0, Lymphocytes ( %) (Auto) 19.8L, Monocytes (%) (Auto) 6.1, Eosinophils (%) (Auto) 3.2H, Basophils (%) (Auto) 0.9, Prothrombin Time 12.1H, Prothromb Time International Ratio 1.2H, Activated Partial Thromboplast Time 27, Sodium Level 141, Potassium Level 4.1, Chloride Level 96L, Carbon Dioxide Level 33H, Anion Gap 12, Blood Urea Nitrogen 66H, Creatinine 2.7H, Estimat Glomerular Filtration Rate , Glucose Level 104, Calcium Level 8.9, Phosphorus Level 4.3, Magnesium Level 1.8 , Total Bilirubin 0.6, Aspartate Amino Transf (AST/SGOT) 11, Alanine Aminotransferase (ALT/SGPT) 5, Alkaline Phosphatase 62, Total Protein 6.7, Albumin 2.9L, Globulin 3.8, Albumin/Globulin Ratio 0.7L Current Medications Medications (Trade) Dose Ordered Sig/Kalyn Route PRN Reason Start Time Stop Time Status Last Admin Dose Admin Acetaminophen (Tylenol) 650 mg Q4H PRN ORAL FEVER 09/30/16 21:30 10/30/16 21:29 Albuterol/ Ipratropium (DuoNeb 0.5-3(2.5)mg/3ml) 3 ml Q4H PRN HHN Shortness of Breath 09/30/16 21:30 10/05/16 21:29 Dextrose (Dextrose 50%) STAT PRN IV Hypoglycemia 09/30/16 21:30 10/30/16 21:29 Furosemide (Lasix) 20 mg TWICE A DAY GT 10/01/16 18:00 10/31/16 08:59 10/02/16 17:08 Gabapentin (Neurontin) 600 mg TWICE A DAY GT 10/01/16 18:00 10/31/16 08:59 10/02/16 17:08 Lorazepam (Ativan 2mg/ml 1ml) 2 mg Q2H PRN IV For Anxiety 09/30/16 21:30 10/07/16 21:29 Ondansetron HCl (Zofran) 4 mg Q6H PRN IVP Nausea & Vomiting 09/30/16 21:30 10/30/16 21:29 10/01/16 08:57 Pantoprazole (Protonix) 40 mg EVERY 12 HOURS ORAL 10/02/16 14:00 11/01/16 13:59 10/02/16 14:46 Polyethylene Glycol (Miralax) 17 gm DAILYPRN PRN GT Constipation 10/01/16 16:30 10/30/16 21:29 Sevelamer Carbonate (Renvela) 800 mg THREE TIMES A DAY ORAL 10/01/16 09:00 10/31/16 08:59 10/02/16 17:07 Sildenafil Citrate (Revatio) 20 mg THREE TIMES A DAY GT 10/01/16 18:00 10/31/16 08:59 10/02/16 17:08 Sodium Chloride 1,000 ml @ 75 mls/hr [id number] IV 09/30/16 22:30 10/30/16 22:29 10/02/16 14:46 Vancomycin HCl (Vanco rx to dose) 1 ea DAILY PRN MISC PRN RX PROTOCOL 10/01/16 16:45 10/31/16 16:44 Vancomycin HCl/ Dextrose 250 ml @ 125 mls/hr Q24H IVPB 10/01/16 18:00 10/06/16 17:59 10/02/16 17:08 Jaquelin Xie NP (Vanchtein) Oct 02, 2016 18:13
[2016-10-02] MEDS: LORazepam Inj 2mg/ml 1ml IV PRN (20:25)
[2016-10-02 21:00] VITALS: BP 110/71
--- NOTE | 2016-10-02 21:45 | History and Physical Report ---
DATE OF ADMISSION: 10/01/2016 CHIEF COMPLAINT: Lower gastrointestinal bleed and hypotension. HISTORY OF PRESENT ILLNESS: This is a very pleasant yet unfortunate 75-year-old female with history of diabetes, morbid obesity, and pulmonary hypertension, recently underwent tracheostomy for chronic hypercapnic respiratory failure, who is residing at [facility]. The patient apparently had been started on Xarelto. She had a lower GI bleed and was transferred to the ER at [place]. She was noted to be hypotensive and also had lower extremity cellulitis. She was given IV vancomycin and fluids and admitted for management of her symptoms and GI consultation. PAST MEDICAL HISTORY: History of diabetes mellitus, history of anemia, history of chronic hypercapnic respiratory failure, history of morbid obesity, history of hypertension, history of heart failure, history of breast cancer, status post right lumpectomy, history of pulmonary hypertension, history of osteoarthritis, history of chronic kidney disease, history of MRSA and VRE colonization, history of GERD, and history of atrial fibrillation. PAST SURGICAL HISTORY: Status post right breast lumpectomy and history of tracheostomy. ALLERGIES: No known drug allergies. MEDICATIONS: Reconciled in the computer. FAMILY HISTORY: Mother at age 92. No other cancers or major medical issues. SOCIAL HISTORY: The patient lived in the past with a friend, Sean. No smoking, drugs, or alcohol use. REVIEW OF SYSTEMS: The patient has been having diarrhea, vomiting, and melena. No reports of chest pain. She does feel short of breath. No palpitations. She has fevers. She feels tired. Denies any dysuria, urgency, or frequency. No heat or cold intolerance. No weight changes. PHYSICAL EXAMINATION: VITAL SIGNS: Temperature is 98.4 degrees, pulse is 84, respiratory rate 24, blood pressure 129/63, and saturating 93% on mechanical ventilator. GENERAL: This is a morbidly obese female, looking fatigued but arousable. HEENT: Normocephalic and atraumatic. Extraocular muscles intact. Pupils are equal, round, and reactive to light. Anicteric sclerae. Oropharynx, poor dentition. NECK: Supple. Tracheostomy is connected to vent. CHEST: Diminished breath sounds. CARDIOVASCULAR: Normal S1 and S2. No murmurs, rubs, or gallops. ABDOMEN: Bowel sounds are positive. Soft, obese, nontender. EXTREMITIES: She has 3+ edema. There is erythema of bilateral leg, left greater than right, all the way up to the knee and warm to touch with some blistering of the skin. NEUROLOGICAL: The patient is awake and alert, but somnolent and responds to commands. No focal deficits noted. CENTRAL NERVOUS SYSTEM: As mentioned above. LABORATORY AND DIAGNOSTIC DATA: Laboratory evaluation, the patient's hemoglobin on admission 8.2, white count 9.1, hematocrit 24.7, and platelet count 230,000. Her chemistry panel shows sodium 142, potassium 4.8, chloride is low at 96, carbon dioxide is high at 32, anion gap of 14, BUN 64 and creatinine was 2.8 which are high, glucose is high at 126, calcium 9.1, phosphorus 4.4. Albumin is 3.9. B12 level is greater than 2000. CEA level is 4.3. The patient's PT is 14.5 which is high, INR is 1.4 which is high, and PTT 44 which is also high. Urinalysis is yellow, clear, specific gravity 1.015, 1+ protein, negative glucose, negative ketones, 4+ blood, negative nitrites, and 1+ bilirubin. Blood gas, pH of 7.4, pCO2 is high at 61, pO2 of 115, carbon dioxide 37.1, and O2 saturation 98%. A chest x-ray shows CHF and interstitial edema. IMPRESSION: This is a 75-year-old female admitted with gastrointestinal bleed as well as cellulitis of lower extremity. She will be admitted to telemetry with the following problems. 1. Gastrointestinal bleed. The patient has been seen by gastroenterology. Her Xarelto has been held. She is n.p.o., on IV fluids, and continue on proton-pump inhibitor. The patient will need to be scoped once more stable. Currently, her hemoglobin is steady at 8.6. 2. Cellulitis of bilateral lower extremity. The patient is on vancomycin, the patient has previously responded to this. She also has history methicillin- resistant Staphylococcus aureus colonization. Adjust for renal dosing per pharmacy. Infectious Disease consult appreciated. 3. Hypercapnic respiratory failure, on the tracheostomy. Continue ventilatory support. Pulmonary consulted and is following the patient. Sputum cultures as needed. 4. Congestive heart failure, has been on Lasix 20 mg b.i.d. Monitor for concentration. Consider echocardiogram and cardiology evaluation. 5. Chronic atrial fibrillation. The patient denies any gastrointestinal bleed. Xarelto has been held. Monitor closely. 6. Pulmonary hypertension. The patient was offered sildenafil. We will defer to pulmonary for management. 7. Morbid obesity. Weight loss is encouraged. Unfortunately, the patient had with compliance in the past. 8. History of arthritis. Tylenol p.r.n. for pain. 9. History of hypertension. The patient is on which is on hold until blood pressure improves. 10. Diabetes mellitus, diet controlled. We will monitor sugars. Insulin sliding scale the patient as well. 11. The patient is full code. 12. Deep venous thrombosis prophylaxis, sequential compression devices. Manny Nolan M.D. DR: Abbie JOB#: [id number] CC:
[2016-10-03] VITALS: BP 110/85
[2016-10-03 04:00] VITALS: BP 126/81
[2016-10-03 05:14] LABS: MEAN CORPUSCULAR HEMOGLOBIN 28.5 PG (27.0-31.0); MEAN CORPUSCULAR VOLUME 92 FL (80-99); MEAN PLATELET VOLUME 5.2 FL (6.5-10.1); PLATELET COUNT 165 K/UL (150-450); RED BLOOD COUNT 2.69 M/UL (4.20-5.40); RED CELL DISTRIBUTION WIDTH 13.9 % (11.6-14.8)
[2016-10-03 05:39] LABS: ANION GAP 12 (5-15); CALCIUM 8.5 mg/dL (8.6-10.2); CARBON DIOXIDE 33 mEQ/L (20-30); CHLORIDE 96 mEQ/L (98-107); HEMOLYSIS 0; POTASSIUM 3.9 mEQ/L (3.4-4.9); SODIUM 141 mEQ/L (135-145)
[2016-10-03 08:00] VITALS: BP 122/72
[2016-10-03 08:51] LABS: BAND NEUTROPHILS % (MANUAL) 1 % (0-8); EOSINOPHILS % (MANUAL) 3 % (0-3); HYPOCHROMASIA 1+; LYMPHOCYTES % (MANUAL) 22 % (20-45); NEUTROPHILS % (MANUAL) 72 % (45-75); TOTAL CELLS COUNTED 100
[2016-10-03 08:52] LABS: BASOPHILS % (MANUAL) 0 % (0-2); PLATELET ESTIMATE ADEQUATE; PLATELET MORPHOLOGY NORMAL
[2016-10-03] MEDS: Revatio 20mg tab GT SCH ×3 (10:47→18:21)
[2016-10-03 12:00] VITALS: BP 122/68
--- NOTE | 2016-10-03 13:35 | Pulmonology Progress Note ---
Assessment/Plan Assessment/Plan ASSESSMENT Upper GI bleeding Hypovolemic shock 2 to GI bleeding-resolved Pickwickian syndrome Chronic hypercapnic respiratory failure VDRF/trach status Anemia requiring blood transfusion Coagulopathy- corrected CKD hyperkalemia-resolved Morbid obesity PAF Severe pulmonary HTN DM HTN COPD chronic BLE lymphedema functional quadriplegia PLAN OF CARE FRANCISCO status vent support trach care pulmonary toilet ABG with evidence of hypercapnia ( chronic), no acidosis titrate settings as needed Initial CXR with evidence of CHF fup with CXR in am s/p IVF, no significant change in renal parameters monitor renal parameters Renal US negative avoid nephrotoxic Empiric abx preliminary urine and blood cx negative ID follows GI follows on PPI hold a/coagulation diet as tolerated a/emetic prn endoscopy planned beginning of next week Stool OB + CEA with small elevation s/p 1 u PRBC transfusion Monitor HH and transfuse prn Coagulopathy corrected with Premarin, FFP, vit K Heme follows transfuse today, monitor HH in am Wound nurse eval and wound care as per wound nurse recommendations case discussed and evaluated by supervising physician Subjective Allergies: Coded Allergies: AMOXICILLIN (Verified Allergy, Mild, RASH, 09/30/16) MORPHINE (Unverified Allergy, Unknown, 09/30/16) PENICILLINS (Unverified Allergy, Unknown, 09/30/16) Subjective afebrile, no leukocytosis no signs of respiratory distress on current settings no further episode of GI bleeding HH down -7.7/24.7 diet advanced to regular, tolerated, no further vomiting episodes Objective Last 24 Hour Vital Signs Date Time Temp Pulse Resp B/P (MAP) Pulse Ox O2 Delivery O2 Flow Rate FiO2 10/03/16 12:00 98.4 83 22 122/68 98 Mechanical Ventilator 30 10/03/16 11:25 76 10/03/16 11:25 30 10/03/16 11:22 82 21 40 10/03/16 08:33 80 17 40 10/03/16 08:00 98.1 65 18 122/72 98 Mechanical Ventilator 30 10/03/16 08:00 30 10/03/16 08:00 78 10/03/16 07:08 78 14 40 10/03/16 05:16 79 14 40 10/03/16 04:00 75 10/03/16 04:00 30 10/03/16 04:00 99.1 87 20 126/81 97 Mechanical Ventilator 30 10/03/16 03:13 83 16 40 10/03/16 00:54 77 14 40 10/03/16 00:00 98.1 73 14 110/85 97 Mechanical Ventilator 30 10/03/16 00:00 87 10/03/16 00:00 30 10/02/16 22:56 87 16 40 10/02/16 22:22 89 10/02/16 21:13 87 14 40 10/02/16 21:00 99.0 82 18 110/71 97 Mechanical Ventilator 30 10/02/16 20:00 30 10/02/16 19:03 97 20 40 10/02/16 16:57 86 15 40 10/02/16 16:00 98.0 88 20 132/63 98 Mechanical Ventilator 30 10/02/16 16:00 30 10/02/16 16:00 87 10/02/16 15:09 92 15 40 Objective General Appearance: no acute distress, bedridden, morbidly obese female vent dependent vent AC 600-14-40% HEENT: normocephalic, atraumatic, anicteric, EOMI, status post trach - Shiley # 6, secretions moderate, white, thick Respiratory/Chest: no respiratory distress, decreased breath sounds Abdomen: normal bowel sounds, soft, non tender - obese Extremities: other - +2 edema BLE with evidence of chronic lymphedema BLE Neurologic/Psychiatric: abnormal gait - bedridden , alert, responsive, moves all extremities Lymphatic: chronic lymphedema BLE Microbiology Date/Time Source Procedure Growth Status 09/30/16 19:40 Blood Blood Culture - Preliminary NO GROWTH AFTER 48 HOURS Resulted 09/30/16 19:30 Blood Blood Culture - Preliminary NO GROWTH AFTER 48 HOURS Resulted 09/30/16 21:30 Nasal Nares MRSA Culture - Final NO METHICILLIN RESISTANT STAPH AUREUS... Complete 09/30/16 20:15 Urine,Clean Catch Urine Culture - Final NO GROWTH AFTER 48 HOURS Complete Laboratory Tests 10/03/16 04:00: White Blood Count 6.0, Red Blood Count 2.69L, Hemoglobin 7.7L, Hematocrit 24.7L , Mean Corpuscular Volume 92, Mean Corpuscular Hemoglobin 28.5, Mean Corpuscular Hemoglobin Concent 31.0L, Red Cell Distribution Width 13.9, Platelet Count 165, Mean Platelet Volume 5.2L, Neutrophils (%) (Auto) , Lymphocytes (%) (Auto) , Monocytes (%) (Auto) , Eosinophils (%) (Auto) , Basophils (%) (Auto) , Differential Total Cells Counted 100, Neutrophils % ( Manual) 72, Lymphocytes % (Manual) 22, Monocytes % (Manual) 2, Eosinophils % ( Manual) 3, Basophils % (Manual) 0, Band Neutrophils 1, Platelet Estimate Adequate, Platelet Morphology Normal, Hypochromasia 1+, Sodium Level 141, Potassium Level 3.9, Chloride Level 96L, Carbon Dioxide Level 33H, Anion Gap 12 , Blood Urea Nitrogen 65H, Creatinine 3.0H, Estimat Glomerular Filtration Rate , Glucose Level 126H, Calcium Level 8.5L Current Medications Medications (Trade) Dose Ordered Sig/Kalyn Route PRN Reason Start Time Stop Time Status Last Admin Dose Admin Acetaminophen (Tylenol) 650 mg Q4H PRN ORAL FEVER 09/30/16 21:30 10/30/16 21:29 Albuterol/ Ipratropium (DuoNeb 0.5-3(2.5)mg/3ml) 3 ml Q4H PRN HHN Shortness of Breath 09/30/16 21:30 10/05/16 21:29 Dextrose (Dextrose 50%) STAT PRN IV Hypoglycemia 09/30/16 21:30 10/30/16 21:29 Furosemide (Lasix) 20 mg TWICE A DAY GT 10/01/16 18:00 10/31/16 08:59 10/03/16 10:42 Gabapentin (Neurontin) 600 mg TWICE A DAY GT 10/01/16 18:00 10/31/16 08:59 10/03/16 10:42 Lorazepam (Ativan 2mg/ml 1ml) 2 mg Q2H PRN IV For Anxiety 09/30/16 21:30 10/07/16 21:29 10/02/16 20:25 Ondansetron HCl (Zofran) 4 mg Q6H PRN IVP Nausea & Vomiting 09/30/16 21:30 10/30/16 21:29 10/01/16 08:57 Pantoprazole (Protonix) 40 mg EVERY 12 HOURS ORAL 10/02/16 14:00 11/01/16 13:59 10/03/16 10:47 Polyethylene Glycol (Miralax) 17 gm DAILYPRN PRN GT Constipation 10/01/16 16:30 10/30/16 21:29 Sevelamer Carbonate (Renvela) 800 mg THREE TIMES A DAY ORAL 10/01/16 09:00 10/31/16 08:59 10/03/16 12:12 Sildenafil Citrate (Revatio) 20 mg THREE TIMES A DAY GT 10/01/16 18:00 10/31/16 08:59 10/03/16 12:12 Sodium Chloride 1,000 ml @ 40 mls/hr Q24H IV 10/02/16 22:30 11/01/16 22:29 10/02/16 22:44 Vancomycin HCl (Vanco rx to dose) 1 ea DAILY PRN MISC PRN RX PROTOCOL 10/01/16 16:45 10/31/16 16:44 Vancomycin HCl/ Dextrose 250 ml @ 125 mls/hr Q24H IVPB 10/01/16 18:00 10/06/16 17:59 10/02/16 17:08 Jaquelin Xie NP (Vanchtein) Oct 03, 2016 13:35
[2016-10-03] MEDS ORDERED: DuoNeb 0.5-3(2.5)mg/3ml neb HHN PRN (14:00)
--- NOTE | 2016-10-03 15:08 | General Progress Note ---
Assessment/Plan Assessment/Plan Assessment - UGIB, recurrent - atrial fib, anticoagulation on hold - resp failure, s/p trach - Obesity - Anemia - Azotemia Recommendations - po diet OK - PPI - Monitor CBC - transfuse PRN - EGD Tuesday or Tuesday Subjective Allergies: Coded Allergies: AMOXICILLIN (Verified Allergy, Mild, RASH, 09/30/16) MORPHINE (Unverified Allergy, Unknown, 09/30/16) PENICILLINS (Unverified Allergy, Unknown, 09/30/16) Subjective Smiling, watching TV no events overnight off of Xarelto x 2 days Objective Last 24 Hour Vital Signs Date Time Temp Pulse Resp B/P (MAP) Pulse Ox O2 Delivery O2 Flow Rate FiO2 10/03/16 13:29 86 17 40 10/03/16 12:00 98.4 83 22 122/68 98 Mechanical Ventilator 30 10/03/16 11:25 76 10/03/16 11:25 30 10/03/16 11:22 82 21 40 10/03/16 08:33 80 17 40 10/03/16 08:00 98.1 65 18 122/72 98 Mechanical Ventilator 30 10/03/16 08:00 30 10/03/16 08:00 78 10/03/16 07:08 78 14 40 10/03/16 05:16 79 14 40 10/03/16 04:00 75 10/03/16 04:00 30 10/03/16 04:00 99.1 87 20 126/81 97 Mechanical Ventilator 10/03/16 03:13 83 16 40 10/03/16 00:54 77 14 40 10/03/16 00:00 98.1 73 14 110/85 97 Mechanical Ventilator 10/03/16 00:00 87 10/03/16 00:00 30 10/02/16 22:56 87 16 40 10/02/16 22:22 89 10/02/16 21:13 87 14 40 10/02/16 21:00 99.0 82 18 110/71 97 Mechanical Ventilator 30 10/02/16 20:00 30 10/02/16 19:03 97 20 40 10/02/16 16:57 86 15 40 10/02/16 16:00 98.0 88 20 132/63 98 Mechanical Ventilator 30 10/02/16 16:00 30 10/02/16 16:00 87 10/02/16 15:09 92 15 40 Laboratory Tests 10/03/16 04:00: White Blood Count 6.0, Red Blood Count 2.69L, Hemoglobin 7.7L, Hematocrit 24.7L , Mean Corpuscular Volume 92, Mean Corpuscular Hemoglobin 28.5, Mean Corpuscular Hemoglobin Concent 31.0L, Red Cell Distribution Width 13.9, Platelet Count 165, Mean Platelet Volume 5.2L, Neutrophils (%) (Auto) , Lymphocytes (%) (Auto) , Monocytes (%) (Auto) , Eosinophils (%) (Auto) , Basophils (%) (Auto) , Differential Total Cells Counted 100, Neutrophils % ( Manual) 72, Lymphocytes % (Manual) 22, Monocytes % (Manual) 2, Eosinophils % ( Manual) 3, Basophils % (Manual) 0, Band Neutrophils 1, Platelet Estimate Adequate, Platelet Morphology Normal, Hypochromasia 1+, Sodium Level 141, Potassium Level 3.9, Chloride Level 96L, Carbon Dioxide Level 33H, Anion Gap 12 , Blood Urea Nitrogen 65H, Creatinine 3.0H, Estimat Glomerular Filtration Rate , Glucose Level 126H, Calcium Level 8.5L Height (Feet): 5 Height (Inches): 5.00 Weight (Pounds): 350 Objective WD Obese WW NCAT (+) trach Coarse BS RR Soft Obese abd , No TTP no edema non focal BRETT DALE Oct 03, 2016 15:08
[2016-10-03 16:00] VITALS: BP 132/73
[2016-10-03] MEDS: Vancomycin 1.5gm/D5W 250ml 250 ML IVPB SCH (18:21)
[2016-10-03 20:00] VITALS: BP 139/76
--- NOTE | 2016-10-03 21:44 | General Progress Note ---
Assessment/Plan Assessment/Plan 76 y/o mobidly obese female admitted with acute gi bleed and AMS and hyptension with the following medical problems: problems: -gi bleed -chronic hypercapeic respiratory failure -cellulitis of lower legs -chronic lymphedema -mobid obesity -chf -hx of right breast cancer -anemia -DM -hyperlepedemia -MDD -CKD Plan: -clear liquid diet -possible endoscopy on Tuesday -IV vanco per pharmacy -gi prophylaxis -vent support per Dr. Rene -vte prophylaxis -continue current meds -sp transfusion of one unit of PRBC on 10/03/16 -NPO after midnight for EGD -am labs Subjective Date patient seen: Oct 03, 2016 Allergies: Coded Allergies: AMOXICILLIN (Verified Allergy, Mild, RASH, 09/30/16) MORPHINE (Unverified Allergy, Unknown, 09/30/16) PENICILLINS (Unverified Allergy, Unknown, 09/30/16) Objective Last 24 Hour Vital Signs Date Time Temp Pulse Resp B/P (MAP) Pulse Ox O2 Delivery O2 Flow Rate FiO2 10/03/16 21:06 84 15 40 10/03/16 20:00 30 10/03/16 20:00 98.5 86 15 139/76 94 Mechanical Ventilator 10/03/16 19:10 87 15 40 10/03/16 17:21 89 15 40 10/03/16 16:32 30 10/03/16 16:32 78 10/03/16 16:00 98.4 91 18 132/73 97 Mechanical Ventilator 30 10/03/16 15:02 82 14 40 10/03/16 13:29 86 17 40 10/03/16 12:00 98.4 83 22 122/68 98 Mechanical Ventilator 30 10/03/16 11:25 76 10/03/16 11:25 30 10/03/16 11:22 82 21 40 10/03/16 08:33 80 17 40 10/03/16 08:00 98.1 65 18 122/72 98 Mechanical Ventilator 30 10/03/16 08:00 30 10/03/16 08:00 78 10/03/16 07:08 78 14 40 10/03/16 05:16 79 14 40 10/03/16 04:00 75 10/03/16 04:00 30 10/03/16 04:00 99.1 87 20 126/81 97 Mechanical Ventilator 30 10/03/16 03:13 83 16 40 10/03/16 00:54 77 14 40 10/03/16 00:00 98.1 73 14 110/85 97 Mechanical Ventilator 30 10/03/16 00:00 87 10/03/16 00:00 30 10/02/16 22:56 87 16 40 10/02/16 22:22 89 Intake and Output 10/03/16 10/04/16 19:00 07:00 Intake Total 720 ml Output Total 550 ml Balance 170 ml Intake Oral 600 ml IV Total 120 ml Output Urine Total 350 ml Stool Total 200 ml Laboratory Tests 10/03/16 04:00: White Blood Count 6.0, Red Blood Count 2.69L, Hemoglobin 7.7L, Hematocrit 24.7L , Mean Corpuscular Volume 92, Mean Corpuscular Hemoglobin 28.5, Mean Corpuscular Hemoglobin Concent 31.0L, Red Cell Distribution Width 13.9, Platelet Count 165, Mean Platelet Volume 5.2L, Neutrophils (%) (Auto) , Lymphocytes (%) (Auto) , Monocytes (%) (Auto) , Eosinophils (%) (Auto) , Basophils (%) (Auto) , Differential Total Cells Counted 100, Neutrophils % ( Manual) 72, Lymphocytes % (Manual) 22, Monocytes % (Manual) 2, Eosinophils % ( Manual) 3, Basophils % (Manual) 0, Band Neutrophils 1, Platelet Estimate Adequate, Platelet Morphology Normal, Hypochromasia 1+, Sodium Level 141, Potassium Level 3.9, Chloride Level 96L, Carbon Dioxide Level 33H, Anion Gap 12 , Blood Urea Nitrogen 65H, Creatinine 3.0H, Estimat Glomerular Filtration Rate , Glucose Level 126H, Calcium Level 8.5L Height (Feet): 5 Height (Inches): 5.00 Weight (Pounds): 350 General Appearance: alert, morbidly obese EENT: PERRL/EOMI, pharynx normal Neck: non-tender, supple Cardiovascular: normal rate, regular rhythm, no gallop/murmur, no JVD Respiratory/Chest: chest wall non-tender, normal breath sounds, no respiratory distress Abdomen: non tender, soft, no mass Extremities: swelling Edema: no edema noted Arm (L), no edema noted Arm (R), 2+ Leg (L), 2+ Leg (R), 2+ Pedal (L), 2+ Pedal (R), 2+ Generalized Edema: moderate edema Neurologic: technical specialist II-XII grossly normal, oriented x 3, responsive Skin: warm/dry Lymphatic: normal anterior cervical (L), normal anterior cervical (R), normal posterior cervical (L), normal posterior cervical (R), normal submandibular (L) , normal submandibular (R), normal supraclavicular (L), normal supraclavicular ( R), normal axillary (L), normal axillary (R), normal inguinal (L), normal inguinal (R), normal other Manny Nolan MD Oct 03, 2016 21:44
--- NOTE | 2016-10-03 23:56 | General Progress Note ---
Assessment/Plan Assessment/Plan 1. Acute anemia, status post blood transfusion, this is recurrent likely secondary to gastrointestinal bleed. 2. Anemia, secondary to chronic disease. A ferritin has been ordered. Also, B12 repeated. --> Blood transfusion if symptomatic or hgb<7.5 --> hemoglobin levels are low 3. Anemia, secondary to potentially B12 deficiency. We will order for homocysteine and methylmalonic acid levels. 4. Respiratory failure requiring BiPAP in the past, status post tracheostomy on 09/20/2016. 5. Severe pulmonary hypertension. 6. Chronic obstructive pulmonary disease. 7. Obstructive sleep apnea. 8. Morbid obesity. 9. Cor pulmonale. Subjective Date patient seen: Oct 02, 2016 Constitutional: Denies: no symptoms, chills, diaphoresis, fever, malaise, weakness, other HEENT: Denies: no symptoms, eye pain, blurred vision, tearing, double vision, ear pain, ear discharge, nose pain, nose congestion, throat pain, throat swelling, mouth pain, mouth swelling, other Cardiovascular: Denies: no symptoms, chest pain, edema, irregular heart rate, lightheadedness, palpitations, syncope, other Respiratory: Denies: no symptoms, cough, orthopnea, shortness of breath, SOB with excertion, SOB at rest, sputum, stridor, wheezing, other Gastrointestinal/Abdominal: Denies: no symptoms, abdomen distended, abdominal pain, black stools, tarry stools, blood in stool, constipated, diarrhea, difficulty swallowing, nausea, poor appetite, poor fluid intake, rectal bleeding , vomiting, other Genitourinary: Denies: no symptoms, burning, discharge, frequency, flank pain, hematuria, incontinence, pain, urgency, other Hematologic/Lymphatic: Reports: anemia Allergies: Coded Allergies: AMOXICILLIN (Verified Allergy, Mild, RASH, 09/30/16) MORPHINE (Unverified Allergy, Unknown, 09/30/16) PENICILLINS (Unverified Allergy, Unknown, 09/30/16) Subjective Afebrile. No acute distress. No active bleeding. Objective Last 24 Hour Vital Signs Date Time Temp Pulse Resp B/P (MAP) Pulse Ox O2 Delivery O2 Flow Rate FiO2 10/03/16 23:00 80 14 40 10/03/16 21:06 84 15 40 10/03/16 20:00 80 10/03/16 20:00 30 10/03/16 20:00 98.5 86 15 139/76 94 Mechanical Ventilator 30 10/03/16 19:10 87 15 40 10/03/16 17:21 89 15 40 10/03/16 16:32 30 10/03/16 16:32 78 10/03/16 16:00 98.4 91 18 132/73 97 Mechanical Ventilator 30 10/03/16 15:02 82 14 40 10/03/16 13:29 86 17 40 10/03/16 12:00 98.4 83 22 122/68 98 Mechanical Ventilator 30 10/03/16 11:25 76 10/03/16 11:25 30 10/03/16 11:22 82 21 40 10/03/16 08:33 80 17 40 10/03/16 08:00 98.1 65 18 122/72 98 Mechanical Ventilator 30 10/03/16 08:00 30 10/03/16 08:00 78 10/03/16 07:08 78 14 40 10/03/16 05:16 79 14 40 10/03/16 04:00 75 10/03/16 04:00 30 10/03/16 04:00 99.1 87 20 126/81 97 Mechanical Ventilator 30 10/03/16 03:13 83 16 40 10/03/16 00:54 77 14 40 10/03/16 00:00 98.1 73 14 110/85 97 Mechanical Ventilator 30 10/03/16 00:00 87 10/03/16 00:00 30 10/02/16 22:56 87 16 40 10/02/16 22:22 89 10/02/16 21:13 87 14 40 10/02/16 21:00 99.0 82 18 110/71 97 Mechanical Ventilator 30 10/02/16 20:00 30 10/02/16 19:03 97 20 40 10/02/16 16:57 86 15 40 10/02/16 16:00 98.0 88 20 132/63 98 Mechanical Ventilator 30 10/02/16 16:00 30 10/02/16 16:00 87 10/02/16 15:09 92 15 40 10/02/16 13:06 82 14 40 10/02/16 12:00 98.0 70 18 125/75 99 Mechanical Ventilator 30 10/02/16 12:00 84 10/02/16 12:00 30 10/02/16 10:40 88 14 40 10/02/16 08:43 89 17 40 10/02/16 08:00 95 10/02/16 08:00 98.6 76 18 120/73 98 Mechanical Ventilator 30 10/02/16 08:00 30 10/02/16 07:28 79 14 40 10/02/16 05:04 78 14 40 10/02/16 04:00 98.4 67 14 120/62 99 Mechanical Ventilator 30 10/02/16 04:00 97 10/02/16 04:00 30 10/02/16 02:59 88 14 40 10/02/16 00:58 89 19 40 10/02/16 00:51 98.3 86 14 108/67 96 Mechanical Ventilator 10/02/16 00:11 30 10/02/16 00:00 70 Last 24 Hour Vital Signs Date Time Temp Pulse Resp B/P (MAP) Pulse Ox O2 Delivery O2 Flow Rate FiO2 10/03/16 23:00 80 14 40 10/03/16 21:06 84 15 40 10/03/16 20:00 80 10/03/16 20:00 30 10/03/16 20:00 98.5 86 15 139/76 94 Mechanical Ventilator 10/03/16 19:10 87 15 40 10/03/16 17:21 89 15 40 10/03/16 16:32 30 10/03/16 16:32 78 10/03/16 16:00 98.4 91 18 132/73 97 Mechanical Ventilator 10/03/16 15:02 82 14 40 10/03/16 13:29 86 17 40 10/03/16 12:00 98.4 83 22 122/68 98 Mechanical Ventilator 30 10/03/16 11:25 76 10/03/16 11:25 30 10/03/16 11:22 82 21 40 10/03/16 08:33 80 17 40 10/03/16 08:00 98.1 65 18 122/72 98 Mechanical Ventilator 30 10/03/16 08:00 30 10/03/16 08:00 78 10/03/16 07:08 78 14 40 10/03/16 05:16 79 14 40 10/03/16 04:00 75 10/03/16 04:00 30 10/03/16 04:00 99.1 87 20 126/81 97 Mechanical Ventilator 30 10/03/16 03:13 83 16 40 10/03/16 00:54 77 14 40 10/03/16 00:00 98.1 73 14 110/85 97 Mechanical Ventilator 30 10/03/16 00:00 87 10/03/16 00:00 30 Intake and Output 10/03/16 10/04/16 19:00 07:00 Intake Total 720 ml Output Total 550 ml Balance 170 ml Intake Oral 600 ml IV Total 120 ml Output Urine Total 350 ml Stool Total 200 ml Labs Test 10/02/16 04:25 10/03/16 04:00 White Blood Count 7.9 K/UL (4.8-10.8) 6.0 K/UL (4.8-10.8) Red Blood Count 2.85 M/UL (4.20-5.40) 2.69 M/UL (4.20-5.40) Hemoglobin 8.5 G/DL (12.0-16.0) 7.7 G/DL (12.0-16.0) Hematocrit 26.1 % (37.0-47.0) 24.7 % (37.0-47.0) Mean Corpuscular Volume 92 FL (80-99) 92 FL (80-99) Mean Corpuscular Hemoglobin 29.9 PG (27.0-31.0) 28.5 PG (27.0-31.0) Mean Corpuscular Hemoglobin Concent 32.6 G/DL (32.0-36.0) 31.0 G/DL (32.0-36.0) Red Cell Distribution Width 14.0 % (11.6-14.8) 13.9 % (11.6-14.8) Platelet Count 205 K/UL (150-450) 165 K/UL (150-450) Mean Platelet Volume 5.5 FL (6.5-10.1) 5.2 FL (6.5-10.1) Neutrophils (%) (Auto) 70.0 % (45.0-75.0) % (45.0-75.0) Lymphocytes (%) (Auto) 19.8 % (20.0-45.0) % (20.0-45.0) Monocytes (%) (Auto) 6.1 % (1.0-10.0) % (1.0-10.0) Eosinophils (%) (Auto) 3.2 % (0.0-3.0) % (0.0-3.0) Basophils (%) (Auto) 0.9 % (0.0-2.0) % (0.0-2.0) Prothrombin Time 12.1 SEC (9.30-11.50) Prothromb Time International Ratio 1.2 (0.9-1.1) Activated Partial Thromboplast Time 27 SEC (23-33) Sodium Level 141 mEQ/L (135-145) 141 mEQ/L (135-145) Potassium Level 4.1 mEQ/L (3.4-4.9) 3.9 mEQ/L (3.4-4.9) Chloride Level 96 mEQ/L (98-107) 96 mEQ/L (98-107) Carbon Dioxide Level 33 mEQ/L (20-30) 33 mEQ/L (20-30) Anion Gap 12 (5-15) 12 (5-15) Blood Urea Nitrogen 66 mg/dL (7-23) 65 mg/dL (7-23) Creatinine 2.7 mg/dL (0.5-0.9) 3.0 mg/dL (0.5-0.9) Estimat Glomerular Filtration Rate mL/min (>60) mL/min (>60) Glucose Level 104 mg/dL (74-106) 126 mg/dL (74-106) Calcium Level 8.9 mg/dL (8.6-10.2) 8.5 mg/dL (8.6-10.2) Phosphorus Level 4.3 mg/dL (2.5-4.8) Magnesium Level 1.8 mg/dL (1.7-2.5) Total Bilirubin 0.6 mg/dL (0.0-1.2) Aspartate Amino Transf (AST/SGOT) 11 U/L (5-40) Alanine Aminotransferase (ALT/SGPT) 5 U/L (3-33) Alkaline Phosphatase 62 U/L (35-104) Total Protein 6.7 g/dL (6.6-8.7) Albumin 2.9 g/dL (3.5-5.2) Globulin 3.8 g/dL Albumin/Globulin Ratio 0.7 (1.0-2.7) Differential Total Cells Counted 100 Neutrophils % (Manual) 72 % (45-75) Lymphocytes % (Manual) 22 % (20-45) Monocytes % (Manual) 2 % (1-10) Eosinophils % (Manual) 3 % (0-3) Basophils % (Manual) 0 % (0-2) Band Neutrophils 1 % (0-8) Platelet Estimate Adequate Platelet Morphology Normal Hypochromasia 1+ Laboratory Tests 10/03/16 04:00: White Blood Count 6.0, Red Blood Count 2.69L, Hemoglobin 7.7L, Hematocrit 24.7L , Mean Corpuscular Volume 92, Mean Corpuscular Hemoglobin 28.5, Mean Corpuscular Hemoglobin Concent 31.0L, Red Cell Distribution Width 13.9, Platelet Count 165, Mean Platelet Volume 5.2L, Neutrophils (%) (Auto) , Lymphocytes (%) (Auto) , Monocytes (%) (Auto) , Eosinophils (%) (Auto) , Basophils (%) (Auto) , Differential Total Cells Counted 100, Neutrophils % ( Manual) 72, Lymphocytes % (Manual) 22, Monocytes % (Manual) 2, Eosinophils % ( Manual) 3, Basophils % (Manual) 0, Band Neutrophils 1, Platelet Estimate Adequate, Platelet Morphology Normal, Hypochromasia 1+, Sodium Level 141, Potassium Level 3.9, Chloride Level 96L, Carbon Dioxide Level 33H, Anion Gap 12 , Blood Urea Nitrogen 65H, Creatinine 3.0H, Estimat Glomerular Filtration Rate , Glucose Level 126H, Calcium Level 8.5L Height (Feet): 5 Height (Inches): 5.00 Weight (Pounds): 350 General Appearance: no apparent distress Neck: normal alignment Cardiovascular: normal rate Abdomen: non tender Neurologic: product 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
--- NOTE | 2016-10-03 23:57 | General Progress Note ---
Assessment/Plan Assessment/Plan 1. Acute anemia, status post blood transfusion, this is recurrent likely secondary to gastrointestinal bleed. 2. Anemia, secondary to chronic disease. A ferritin has been ordered. Also, B12 repeated. --> Blood transfusion if symptomatic or hgb<7.5 --> hemoglobin levels are low 3. Anemia, secondary to potentially B12 deficiency. We will order for homocysteine and methylmalonic acid levels. 4. Respiratory failure requiring BiPAP in the past, status post tracheostomy on 09/20/2016. 5. Severe pulmonary hypertension. 6. Chronic obstructive pulmonary disease. 7. Obstructive sleep apnea. 8. Morbid obesity. 9. Cor pulmonale. Subjective Date patient seen: Oct 03, 2016 Constitutional: Denies: no symptoms, chills, diaphoresis, fever, malaise, weakness, other HEENT: Denies: no symptoms, eye pain, blurred vision, tearing, double vision, ear pain, ear discharge, nose pain, nose congestion, throat pain, throat swelling, mouth pain, mouth swelling, other Cardiovascular: Denies: no symptoms, chest pain, edema, irregular heart rate, lightheadedness, palpitations, syncope, other Respiratory: Denies: no symptoms, cough, orthopnea, shortness of breath, SOB with excertion, SOB at rest, sputum, stridor, wheezing, other Gastrointestinal/Abdominal: Denies: no symptoms, abdomen distended, abdominal pain, black stools, tarry stools, blood in stool, constipated, diarrhea, difficulty swallowing, nausea, poor appetite, poor fluid intake, rectal bleeding , vomiting, other Genitourinary: Denies: no symptoms, burning, discharge, frequency, flank pain, hematuria, incontinence, pain, urgency, other Hematologic/Lymphatic: Reports: anemia Allergies: Coded Allergies: AMOXICILLIN (Verified Allergy, Mild, RASH, 09/30/16) MORPHINE (Unverified Allergy, Unknown, 09/30/16) PENICILLINS (Unverified Allergy, Unknown, 09/30/16) Subjective Afebrile. No acute distress. No active bleeding. Hgb levels low, needs prbc Objective Last 24 Hour Vital Signs Date Time Temp Pulse Resp B/P (MAP) Pulse Ox O2 Delivery O2 Flow Rate FiO2 10/03/16 23:00 80 14 40 10/03/16 21:06 84 15 40 10/03/16 20:00 80 10/03/16 20:00 30 10/03/16 20:00 98.5 86 15 139/76 94 Mechanical Ventilator 30 10/03/16 19:10 87 15 40 10/03/16 17:21 89 15 40 10/03/16 16:32 30 10/03/16 16:32 78 10/03/16 16:00 98.4 91 18 132/73 97 Mechanical Ventilator 30 10/03/16 15:02 82 14 40 10/03/16 13:29 86 17 40 10/03/16 12:00 98.4 83 22 122/68 98 Mechanical Ventilator 30 10/03/16 11:25 76 10/03/16 11:25 30 10/03/16 11:22 82 21 40 10/03/16 08:33 80 17 40 10/03/16 08:00 98.1 65 18 122/72 98 Mechanical Ventilator 30 10/03/16 08:00 30 10/03/16 08:00 78 10/03/16 07:08 78 14 40 10/03/16 05:16 79 14 40 10/03/16 04:00 75 10/03/16 04:00 30 10/03/16 04:00 99.1 87 20 126/81 97 Mechanical Ventilator 30 10/03/16 03:13 83 16 40 10/03/16 00:54 77 14 40 10/03/16 00:00 98.1 73 14 110/85 97 Mechanical Ventilator 30 10/03/16 00:00 87 10/03/16 00:00 30 Intake and Output 10/03/16 10/04/16 19:00 07:00 Intake Total 720 ml Output Total 550 ml Balance 170 ml Intake Oral 600 ml IV Total 120 ml Output Urine Total 350 ml Stool Total 200 ml Laboratory Tests 10/03/16 04:00: White Blood Count 6.0, Red Blood Count 2.69L, Hemoglobin 7.7L, Hematocrit 24.7L , Mean Corpuscular Volume 92, Mean Corpuscular Hemoglobin 28.5, Mean Corpuscular Hemoglobin Concent 31.0L, Red Cell Distribution Width 13.9, Platelet Count 165, Mean Platelet Volume 5.2L, Neutrophils (%) (Auto) , Lymphocytes (%) (Auto) , Monocytes (%) (Auto) , Eosinophils (%) (Auto) , Basophils (%) (Auto) , Differential Total Cells Counted 100, Neutrophils % ( Manual) 72, Lymphocytes % (Manual) 22, Monocytes % (Manual) 2, Eosinophils % ( Manual) 3, Basophils % (Manual) 0, Band Neutrophils 1, Platelet Estimate Adequate, Platelet Morphology Normal, Hypochromasia 1+, Sodium Level 141, Potassium Level 3.9, Chloride Level 96L, Carbon Dioxide Level 33H, Anion Gap 12 , Blood Urea Nitrogen 65H, Creatinine 3.0H, Estimat Glomerular Filtration Rate , Glucose Level 126H, Calcium Level 8.5L Height (Feet): 5 Height (Inches): 5.00 Weight (Pounds): 350 General Appearance: no apparent distress EENT: normal ENT inspection Respiratory/Chest: normal breath sounds Abdomen: soft NAIDA MANJARREZ Oct 03, 2016 23:57
[2016-10-04] VITALS: BP 111/60
[2016-10-04 04:00] VITALS: BP 120/68
[2016-10-04 05:03] LABS: BASOPHILS % (AUTO) 0.8 % (0.0-2.0); EOSINOPHILS % (AUTO) 3.3 % (0.0-3.0); LYMPHOCYTES % (AUTO) 20.5 % (20.0-45.0); MEAN CORPUSCULAR HEMOGLOBIN 28.5 PG (27.0-31.0); MEAN CORPUSCULAR VOLUME 92 FL (80-99); MEAN PLATELET VOLUME 5.3 FL (6.5-10.1); MONOCYTES % (AUTO) 7.1 % (1.0-10.0); NEUTROPHILS % (AUTO) 68.3 % (45.0-75.0); PLATELET COUNT 150 K/UL (150-450); RED BLOOD COUNT 3.15 M/UL (4.20-5.40); RED CELL DISTRIBUTION WIDTH 13.9 % (11.6-14.8)
[2016-10-04 05:32] LABS: ANION GAP 13 (5-15); CALCIUM 8.7 mg/dL (8.6-10.2); CARBON DIOXIDE 29 mEQ/L (20-30); CHLORIDE 96 mEQ/L (98-107); HEMOLYSIS 10; POTASSIUM 4.2 mEQ/L (3.4-4.9); SODIUM 138 mEQ/L (135-145)
[2016-10-04 08:00] VITALS: BP 117/65
--- NOTE | 2016-10-04 10:32 | Pre-Procedure Note/Attestation ---
Pre-Procedure Note/Attestation Complete Prior to Procedure Planned Procedure: not applicable Procedure Narrative: egd Indications for Procedure Pre-Operative Diagnosis: anemia Attestation I attest that I discussed the nature of the procedure; its benefits; risks and complications; and alternatives (and the risks and benefits of such alternatives ), prior to the procedure, with the patient (or the patient's legal sales and service representative). I attest that, if there was a reasonable possibility of needing a blood transfusion, the patient (or the patient's legal sales and service representative) was given the [facility] standardized written summary, pursuant to the Dayne Olivarez Blood Safety Act ([place] Health and Safety Code # 1645, as amended). I attest that I re-evaluated the patient just prior to the surgery and that there has been no change in the patient's H&P, except as documented below: RUDDY RODRIGUEZ Oct 04, 2016 10:32
--- NOTE | 2016-10-04 11:13 | Pulmonology Progress Note ---
Assessment/Plan Problems: (1) Upper gastrointestinal bleed (2) Pickwickian syndrome (3) Chronic respiratory failure with hypercapnia (4) Morbid obesity Respiratory: monitor respiratory rate, adjust FIO2, CXR Cardiac: stop pressors, continue to monitor HR/BP Renal: F/U I&O, keep IV fluid, check electrolytes Infectious Disease: check cultures, continue antibiotics Gastrointestinal: continue feedings/current rate Endocrine: monitor blood sugar, check TSH, continue sliding scale insulin Hematologic: monitor H/H, transfuse if hgb<8.5 Neurologic: PRN Ativan, PRN Morphine, keep patient comfortable Affect: PRN ativan Notes Reviewed: sheeter operator, renal 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: nurses, consultants, case management assistant Subjective ROS Limited/Unobtainable: No Constitutional: Reports: no symptoms HEENT: Repors: no symptoms Respiratory: Reports: no symptoms Allergies: Coded Allergies: AMOXICILLIN (Verified Allergy, Mild, RASH, 09/30/16) MORPHINE (Unverified Allergy, Unknown, 09/30/16) PENICILLINS (Unverified Allergy, Unknown, 09/30/16) Objective Last 24 Hour Vital Signs Date Time Temp Pulse Resp B/P (MAP) Pulse Ox O2 Delivery O2 Flow Rate FiO2 10/04/16 10:37 72 17 40 10/04/16 08:53 86 16 40 10/04/16 08:00 78 10/04/16 08:00 30 10/04/16 08:00 98.5 75 20 117/65 96 Mechanical Ventilator 10/04/16 07:06 64 14 40 10/04/16 05:08 81 15 40 10/04/16 04:00 30 10/04/16 04:00 75 10/04/16 04:00 98.3 77 22 120/68 96 Mechanical Ventilator 10/04/16 02:51 66 15 40 10/04/16 01:30 71 15 40 10/04/16 00:00 98.2 77 14 111/60 99 Mechanical Ventilator 30 10/03/16 23:00 80 14 40 10/03/16 21:06 84 15 40 10/03/16 20:00 80 10/03/16 20:00 30 10/03/16 20:00 98.5 86 15 139/76 94 Mechanical Ventilator 10/03/16 19:10 87 15 40 10/03/16 17:21 89 15 40 10/03/16 16:32 30 10/03/16 16:32 78 10/03/16 16:00 98.4 91 18 132/73 97 Mechanical Ventilator 30 10/03/16 15:02 82 14 40 10/03/16 13:29 86 17 40 10/03/16 12:00 98.4 83 22 122/68 98 Mechanical Ventilator 30 10/03/16 11:25 76 10/03/16 11:25 30 10/03/16 11:22 82 21 40 General Appearance: WD/WN HEENT: normocephalic, atraumatic, anicteric Respiratory/Chest: chest wall non-tender, lungs clear Breasts: no masses Cardiovascular: normal peripheral pulses, normal rate Abdomen: normal bowel sounds, no organomegaly Genitourinary: normal external genitalia Extremities: no cyanosis Skin: no rash Neurologic/Psychiatric: can cutter II-XII grossly normal Musculoskeletal: normal muscle bulk, no effusion Laboratory Tests 10/04/16 03:50: White Blood Count 6.0, Red Blood Count 3.15L, Hemoglobin 9.0L, Hematocrit 28.9L , Mean Corpuscular Volume 92, Mean Corpuscular Hemoglobin 28.5, Mean Corpuscular Hemoglobin Concent 31.0L, Red Cell Distribution Width 13.9, Platelet Count 150, Mean Platelet Volume 5.3L, Neutrophils (%) (Auto) 68.3, Lymphocytes (%) (Auto) 20.5, Monocytes (%) (Auto) 7.1, Eosinophils (%) (Auto) 3.3H, Basophils (%) (Auto) 0.8, Sodium Level 138, Potassium Level 4.2, Chloride Level 96L, Carbon Dioxide Level 29, Anion Gap 13, Blood Urea Nitrogen 64H, Creatinine 3.0H, Estimat Glomerular Filtration Rate , Glucose Level 97, Calcium Level 8.7 Current Medications Medications (Trade) Dose Ordered Sig/Kalyn Route PRN Reason Start Time Stop Time Status Last Admin Dose Admin Acetaminophen (Tylenol) 650 mg Q4H PRN ORAL FEVER 09/30/16 21:30 10/30/16 21:29 Albuterol/ Ipratropium (DuoNeb 0.5-3(2.5)mg/3ml) 3 ml Q4H PRN HHN Shortness of Breath 10/03/16 14:00 10/08/16 13:59 Dextrose (Dextrose 50%) STAT PRN IV Hypoglycemia 09/30/16 21:30 10/30/16 21:29 Epoetin Santos (Procrit (for ESRD on dialysis)) 5,000 units SUBQ 10/04/16 21:00 11/03/16 20:59 Epoetin Santos (Procrit (for ESRD on dialysis)) 10,000 units SUBQ 10/04/16 21:00 11/03/16 20:59 Furosemide (Lasix) 20 mg TWICE A DAY GT 10/01/16 18:00 10/31/16 08:59 10/03/16 18:21 Gabapentin (Neurontin) 600 mg TWICE A DAY GT 10/01/16 18:00 10/31/16 08:59 10/03/16 18:21 Lorazepam (Ativan 2mg/ml 1ml) 2 mg Q2H PRN IV For Anxiety 09/30/16 21:30 10/07/16 21:29 10/02/16 20:25 Ondansetron HCl (Zofran) 4 mg Q6H PRN IVP Nausea & Vomiting 09/30/16 21:30 10/30/16 21:29 10/01/16 08:57 Pantoprazole (Protonix) 40 mg EVERY 12 HOURS ORAL 10/02/16 14:00 11/01/16 13:59 10/03/16 21:26 Polyethylene Glycol (Miralax) 17 gm DAILYPRN PRN GT Constipation 10/01/16 16:30 10/30/16 21:29 Sevelamer Carbonate (Renvela) 800 mg THREE TIMES A DAY ORAL 10/01/16 09:00 10/31/16 08:59 10/03/16 18:22 Sildenafil Citrate (Revatio) 20 mg THREE TIMES A DAY GT 10/01/16 18:00 10/31/16 08:59 10/03/16 18:21 Vancomycin HCl (Vanco rx to dose) 1 ea DAILY PRN MISC PRN RX PROTOCOL 10/01/16 16:45 10/31/16 16:44 Vancomycin HCl/ Dextrose 250 ml @ 125 mls/hr Q24H IVPB 10/01/16 18:00 10/06/16 17:59 10/03/16 18:21 ARASH MIRANDA Oct 04, 2016 11:13
--- NOTE | 2016-10-04 11:19 | Diagnostic Imaging Report ---
APPROVED REPORT CPT Code: 69940 Present Symptoms Shortness of breath Risk Factors Obesity Bed Rest Technically difficult study due to vessel depth ([id number] thigh and calf area). BILATERAL: Imaging reveals a patent deep venous system bilaterally. There is no evidence of thrombus within the common femoral, proximal superficial femoral, or popliteal segments. The greater saphenous veins are also within normal limits. Doppler indicates normal spontaneous flow within these segments. Mid to distal superficial femoral and calf veins not well visualized, bilaterally.
[2016-10-04 11:29] VITALS: BP 126/81
[2016-10-04] MEDS ORDERED: Propofol 10mg/ml 20ml IV ONE (11:45)
[2016-10-04] MEDS ORDERED: Lidocaine 1% MPF 10mg/ml 5ml ONE (11:45)
--- NOTE | 2016-10-04 12:12 | Immediate Post-Op Evaluation ---
Immediate Post-Op Evalulation Immediate Post-Op Evalulation Procedure: egd Date of Evaluation: Oct 04, 2016 BOOKER YANG Oct 04, 2016 12:12
--- NOTE | 2016-10-04 12:12 | Anethesia Preoperative Eval ---
Anesthesia Pre-op PMH/ROS General Date of Evaluation: Oct 04, 2016 Time of Evaluation: 11:43 Anesthesiologist: lauren ASA Score: ASA 4 Mallampati Score Class I : Soft palate, uvula, fauces, pillars visible Class II: Soft palate, uvula, fauces visible Class III: Soft palate, base of uvula visible Class IV: Only hard plate visible Mallampati Classification: Class II Surgeon: leanna Diagnosis: anemia Surgical Procedure: egd Anesthesia History: none Family History: no anesthesia problems Allergies: Coded Allergies: AMOXICILLIN (Verified Allergy, Mild, RASH, 09/30/16) MORPHINE (Unverified Allergy, Unknown, 09/30/16) PENICILLINS (Unverified Allergy, Unknown, 09/30/16) Medications: see eMAR Past Medical History Cardiovascular: Reports: HTN, CAD Pulmonary: Reports: asthma Gastrointestinal/Genitourinary: Reports: GERD Endocrine: Reports: DM Hematology/Immune: Reports: anemia Other: obesity Anesthesia Pre-op Phys. Exam Physician Exam Last Vital Signs Date Time Temp Pulse Resp B/P (MAP) Pulse Ox O2 Delivery O2 Flow Rate FiO2 10/04/16 11:29 97.9 76 22 126/81 97 Mechanical Ventilator 30 Constitutional: NAD Neurologic: other Cardiovascular: RRR Respiratory: CTA Gastrointestinal: S/NT/ND Airway Exam Mallampati Score: Class II MO: full Neck: tracheostomy TMD: 2fb ROM: limited Teeth: missing Anesthesia Pre-op A/P Labs Hematology Test 10/04/16 03:50 White Blood Count 6.0 K/UL (4.8-10.8) Red Blood Count 3.15 M/UL (4.20-5.40) L Hemoglobin 9.0 G/DL (12.0-16.0) L Hematocrit 28.9 % (37.0-47.0) L Mean Corpuscular Volume 92 FL (80-99) Mean Corpuscular Hemoglobin 28.5 PG (27.0-31.0) Mean Corpuscular Hemoglobin Concent 31.0 G/DL (32.0-36.0) L Red Cell Distribution Width 13.9 % (11.6-14.8) Platelet Count 150 K/UL (150-450) Mean Platelet Volume 5.3 FL (6.5-10.1) L Neutrophils (%) (Auto) 68.3 % (45.0-75.0) Lymphocytes (%) (Auto) 20.5 % (20.0-45.0) Monocytes (%) (Auto) 7.1 % (1.0-10.0) Eosinophils (%) (Auto) 3.3 % (0.0-3.0) H Basophils (%) (Auto) 0.8 % (0.0-2.0) Chemistry Test 10/04/16 03:50 Sodium Level 138 mEQ/L (135-145) Potassium Level 4.2 mEQ/L (3.4-4.9) Chloride Level 96 mEQ/L (98-107) L Carbon Dioxide Level 29 mEQ/L (20-30) Anion Gap 13 (5-15) Blood Urea Nitrogen 64 mg/dL (7-23) H Creatinine 3.0 mg/dL (0.5-0.9) H Estimat Glomerular Filtration Rate mL/min (>60) Glucose Level 97 mg/dL (74-106) Calcium Level 8.7 mg/dL (8.6-10.2) Risk Assessment & Plan Assessment: asa4 Plan: mac Status Change Before Surgery: No Pre-Antibiotics Drug: BOOKER Muñiz Oct 04, 2016 12:12
[2016-10-04] MEDS: Revatio 20mg tab GT SCH ×3 (12:17→17:32)
--- NOTE | 2016-10-04 12:31 | Endoscopy Procedure Note ---
Endoscopy Procedure Note Indication for Procedure: anemia Procedures Performed: EGD Operative Findings/Diagnosis: severe gastritis, bile reflux Specimen: yes Pt Tolerated Procedure Well: Yes Estimated Blood Loss: none Anesthesiologist: lauren Anesthesia: MAC Implant(s) used?: No 50 yrs or older w/o bx or poly: Not Applicable 10yrs. F/U not recommended: Not Applicable RUDDY RODRIGUEZ Oct 04, 2016 12:31
--- NOTE | 2016-10-04 12:35 | Diagnostic Imaging Report ---
Indication: Dyspnea Comparison: 09/30/16 A single view chest radiograph was obtained. Findings: Mild interstitial edema and vascular prominence suspected with cardiomegaly. The bones are osteopenic. Impression: No significant change. Probable mild interstitial edema
--- NOTE | 2016-10-04 13:41 | Immediate Post-Op Evaluation ---
Immediate Post-Op Evalulation Immediate Post-Op Evalulation Procedure: egd Date of Evaluation: Oct 04, 2016 Time of Evaluation: 12:17 IV Fluids: 0.9ns 15ml Blood Products: none Estimated Blood Loss: negligible Blood Pressure Systolic: 126 Blood Pressure Diastolic: 81 Pulse Rate: 67 Respiratory Rate: 14 O2 Sat by Pulse Oximetry: 100 Temperature (Fahrenheit): 97.9 Pain Score (1-10): 0 Nausea: No Vomiting: No Complications none Patient Status: awake, reacts, patent Hydration Status: adequate Drug: BOOKER Muñiz Oct 04, 2016 13:41
--- NOTE | 2016-10-04 13:43 | 48 Hour Post Anesthesia Eval ---
Post Anesthesia Evaluation Procedure: egd Date of Evaluation: Oct 04, 2016 Time of Evaluation: 13:41 Blood Pressure Systolic: 112 0: 75 Pulse Rate: 56 Respiratory Rate: 14 Temperature (Fahrenheit): 98.2 O2 Sat by Pulse Oximetry: 100 Airway: patent Nausea: No Vomiting: No Pain Intensity: 0 Hydration Status: adequate Cardiopulmonary Status: stable Mental Status/LOC: patient returned to baseline Post-Anesthesia Complications: none Follow-up care needed: N/A BOOKER YANG Oct 04, 2016 13:43
[2016-10-04 16:00] VITALS: BP 131/67
[2016-10-04] MEDS: Vancomycin 1.5gm/D5W 250ml 250 ML IVPB SCH (17:34)
--- NOTE | 2016-10-04 19:50 | General Progress Note ---
Assessment/Plan Status: stable Assessment/Plan 1. Acute anemia, status post blood transfusion, this is recurrent likely secondary to gastrointestinal bleed. 2. Anemia, secondary to chronic disease. A ferritin has been ordered. Also, B12 repeated. --> Blood transfusion if symptomatic or hgb<7.5 --> hemoglobin levels now at 9.1 after receiving prbc --> continue to monitor 3. Anemia, secondary to potentially B12 deficiency. --> We will order for homocysteine and methylmalonic acid levels. 4. Respiratory failure requiring BiPAP in the past, --> status post tracheostomy on 09/20/2016. 5. Severe pulmonary hypertension. 6. Chronic obstructive pulmonary disease. 7. Obstructive sleep apnea. 8. Morbid obesity. 9. Cor pulmonale. Subjective Date patient seen: Oct 04, 2016 Constitutional: Denies: no symptoms, chills, diaphoresis, fever, malaise, weakness, other HEENT: Denies: no symptoms, eye pain, blurred vision, tearing, double vision, ear pain, ear discharge, nose pain, nose congestion, throat pain, throat swelling, mouth pain, mouth swelling, other Cardiovascular: Denies: no symptoms, chest pain, edema, irregular heart rate, lightheadedness, palpitations, syncope, other Respiratory: Denies: no symptoms, cough, orthopnea, shortness of breath, SOB with excertion, SOB at rest, sputum, stridor, wheezing, other Gastrointestinal/Abdominal: Denies: no symptoms, abdomen distended, abdominal pain, black stools, tarry stools, blood in stool, constipated, diarrhea, difficulty swallowing, nausea, poor appetite, poor fluid intake, rectal bleeding , vomiting, other Genitourinary: Denies: no symptoms, burning, discharge, frequency, flank pain, hematuria, incontinence, pain, urgency, other Neurologic/Psychiatric: Denies: no symptoms, anxiety, depressed, emotional problems, headache, numbness, paresthesia, pre-existing deficit, seizure, tingling, tremors, weakness, other Hematologic/Lymphatic: Reports: anemia Allergies: Coded Allergies: AMOXICILLIN (Verified Allergy, Mild, RASH, 09/30/16) MORPHINE (Unverified Allergy, Unknown, 09/30/16) PENICILLINS (Unverified Allergy, Unknown, 09/30/16) Subjective Afebrile. No acute distress. No active bleeding. S/P prbc. Hemoglobin levels improved. Objective Last 24 Hour Vital Signs Date Time Temp Pulse Resp B/P (MAP) Pulse Ox O2 Delivery O2 Flow Rate FiO2 10/04/16 19:00 81 15 35 10/04/16 17:08 85 17 35 10/04/16 16:00 30 10/04/16 16:00 97.5 72 20 131/67 97 Mechanical Ventilator 30 10/04/16 16:00 72 10/04/16 15:18 78 20 35 10/04/16 13:43 56 14 100 10/04/16 13:41 67 14 100 10/04/16 13:13 78 18 40 10/04/16 11:29 97.9 76 22 126/81 97 Mechanical Ventilator 30 10/04/16 11:29 30 10/04/16 11:28 76 10/04/16 10:37 72 17 40 10/04/16 08:53 86 16 40 10/04/16 08:00 78 10/04/16 08:00 30 10/04/16 08:00 98.5 75 20 117/65 96 Mechanical Ventilator 30 10/04/16 07:06 64 14 40 10/04/16 05:08 81 15 40 10/04/16 04:00 30 10/04/16 04:00 75 10/04/16 04:00 98.3 77 22 120/68 96 Mechanical Ventilator 30 10/04/16 02:51 66 15 40 10/04/16 01:30 71 15 40 10/04/16 00:00 98.2 77 14 111/60 99 Mechanical Ventilator 30 10/03/16 23:00 80 14 40 10/03/16 21:06 84 15 40 10/03/16 20:00 80 10/03/16 20:00 30 10/03/16 20:00 98.5 86 15 139/76 94 Mechanical Ventilator 30 Intake and Output 10/04/16 10/05/16 19:00 07:00 Intake Total 240 ml Output Total 500 ml Balance -260 ml Intake Oral 240 ml Output Urine Total 350 ml Stool Total 150 ml Laboratory Tests 10/04/16 03:50: White Blood Count 6.0, Red Blood Count 3.15L, Hemoglobin 9.0L, Hematocrit 28.9L , Mean Corpuscular Volume 92, Mean Corpuscular Hemoglobin 28.5, Mean Corpuscular Hemoglobin Concent 31.0L, Red Cell Distribution Width 13.9, Platelet Count 150, Mean Platelet Volume 5.3L, Neutrophils (%) (Auto) 68.3, Lymphocytes (%) (Auto) 20.5, Monocytes (%) (Auto) 7.1, Eosinophils (%) (Auto) 3.3H, Basophils (%) (Auto) 0.8, Sodium Level 138, Potassium Level 4.2, Chloride Level 96L, Carbon Dioxide Level 29, Anion Gap 13, Blood Urea Nitrogen 64H, Creatinine 3.0H, Estimat Glomerular Filtration Rate , Glucose Level 97, Calcium Level 8.7 10/04/16 17:00: Vancomycin Level Trough 33.0H Height (Feet): 5 Height (Inches): 5.00 Weight (Pounds): 355 General Appearance: WD/WN Respiratory/Chest: chest wall non-tender, lungs clear, normal breath sounds Abdomen: normal bowel sounds, no mass Neurologic: job compositor II-XII grossly normal NAIDA MANJARREZ Oct 04, 2016 19:50
[2016-10-04 20:00] VITALS: BP 96/59
--- NOTE | 2016-10-04 20:46 | General Progress Note ---
Assessment/Plan Assessment/Plan 76 y/o mobidly obese female admitted with acute gi bleed and AMS and hyptension with the following medical problems: problems: -gi bleed -chronic hypercapeic respiratory failure -cellulitis of lower legs -chronic lymphedema -mobid obesity -chf -hx of right breast cancer -anemia -DM -hyperlepedemia -MDD -CKD -gastritis -s/p EGD on 10/04/16 Plan: -clear liquid diet -possible endoscopy on Tuesday -IV vanco per pharmacy -gi prophylaxis -vent support per Dr. Rene -vte prophylaxis -continue current meds -sp transfusion of one unit of PRBC on 10/03/16 -dc planning in next one to two days -am labs Subjective Date patient seen: Oct 04, 2016 Allergies: Coded Allergies: AMOXICILLIN (Verified Allergy, Mild, RASH, 09/30/16) MORPHINE (Unverified Allergy, Unknown, 09/30/16) PENICILLINS (Unverified Allergy, Unknown, 09/30/16) Objective Last 24 Hour Vital Signs Date Time Temp Pulse Resp B/P (MAP) Pulse Ox O2 Delivery O2 Flow Rate FiO2 10/04/16 19:00 81 15 35 10/04/16 17:08 85 17 35 10/04/16 16:00 30 10/04/16 16:00 97.5 72 20 131/67 97 Mechanical Ventilator 30 10/04/16 16:00 72 10/04/16 15:18 78 20 35 10/04/16 13:43 56 14 100 10/04/16 13:41 67 14 100 10/04/16 13:13 78 18 40 10/04/16 11:29 97.9 76 22 126/81 97 Mechanical Ventilator 30 10/04/16 11:29 30 10/04/16 11:28 76 10/04/16 10:37 72 17 40 10/04/16 08:53 86 16 40 10/04/16 08:00 78 10/04/16 08:00 30 10/04/16 08:00 98.5 75 20 117/65 96 Mechanical Ventilator 30 10/04/16 07:06 64 14 40 10/04/16 05:08 81 15 40 10/04/16 04:00 30 10/04/16 04:00 75 10/04/16 04:00 98.3 77 22 120/68 96 Mechanical Ventilator 30 10/04/16 02:51 66 15 40 10/04/16 01:30 71 15 40 10/04/16 00:00 98.2 77 14 111/60 99 Mechanical Ventilator 30 10/03/16 23:00 80 14 40 10/03/16 21:06 84 15 40 Intake and Output 10/04/16 10/05/16 19:00 07:00 Intake Total 240 ml Output Total 500 ml Balance -260 ml Intake Oral 240 ml Output Urine Total 350 ml Stool Total 150 ml Laboratory Tests 10/04/16 03:50: White Blood Count 6.0, Red Blood Count 3.15L, Hemoglobin 9.0L, Hematocrit 28.9L , Mean Corpuscular Volume 92, Mean Corpuscular Hemoglobin 28.5, Mean Corpuscular Hemoglobin Concent 31.0L, Red Cell Distribution Width 13.9, Platelet Count 150, Mean Platelet Volume 5.3L, Neutrophils (%) (Auto) 68.3, Lymphocytes (%) (Auto) 20.5, Monocytes (%) (Auto) 7.1, Eosinophils (%) (Auto) 3.3H, Basophils (%) (Auto) 0.8, Sodium Level 138, Potassium Level 4.2, Chloride Level 96L, Carbon Dioxide Level 29, Anion Gap 13, Blood Urea Nitrogen 64H, Creatinine 3.0H, Estimat Glomerular Filtration Rate , Glucose Level 97, Calcium Level 8.7 10/04/16 17:00: Vancomycin Level Trough 33.0H Height (Feet): 5 Height (Inches): 5.00 Weight (Pounds): 355 General Appearance: morbidly obese EENT: PERRL/EOMI, pharynx normal Neck: non-tender, supple Cardiovascular: normal rate, regular rhythm, no gallop/murmur, no JVD Respiratory/Chest: chest wall non-tender, normal breath sounds, no respiratory distress, other Abdomen: non tender, soft, no mass Extremities: swelling Edema: no edema noted Arm (L), no edema noted Arm (R), 2+ Leg (L), 2+ Leg (R), 2+ Pedal (L), 2+ Pedal (R), 2+ Generalized Edema: moderate edema Neurologic: 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
[2016-10-04] MEDS ORDERED: Tylenol #3 tab (300mg/30mg) ORAL PRN (21:00)
[2016-10-04] MEDS ORDERED: Epogen (for ESRD on dialysis) SUBQ SCH ×2 (21:00)
--- NOTE | 2016-10-04 21:37 | General Progress Note ---
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 - Monitor CBC - transfuse PRN Subjective Allergies: Coded Allergies: AMOXICILLIN (Verified Allergy, Mild, RASH, 09/30/16) MORPHINE (Unverified Allergy, Unknown, 09/30/16) PENICILLINS (Unverified Allergy, Unknown, 09/30/16) Subjective seen this am s/p EGD --> severe gastritis and bile reflux Objective Last 24 Hour Vital Signs Date Time Temp Pulse Resp B/P (MAP) Pulse Ox O2 Delivery O2 Flow Rate FiO2 10/04/16 21:12 71 14 35 10/04/16 19:00 81 15 35 10/04/16 17:08 85 17 35 10/04/16 16:00 30 10/04/16 16:00 97.5 72 20 131/67 97 Mechanical Ventilator 10/04/16 16:00 72 10/04/16 15:18 78 20 35 10/04/16 13:43 56 14 100 10/04/16 13:41 67 14 100 10/04/16 13:13 78 18 40 10/04/16 11:29 97.9 76 22 126/81 97 Mechanical Ventilator 30 10/04/16 11:29 30 10/04/16 11:28 76 10/04/16 10:37 72 17 40 10/04/16 08:53 86 16 40 10/04/16 08:00 78 10/04/16 08:00 30 10/04/16 08:00 98.5 75 20 117/65 96 Mechanical Ventilator 10/04/16 07:06 64 14 40 10/04/16 05:08 81 15 40 10/04/16 04:00 30 10/04/16 04:00 75 10/04/16 04:00 98.3 77 22 120/68 96 Mechanical Ventilator 10/04/16 02:51 66 15 40 10/04/16 01:30 71 15 40 10/04/16 00:00 98.2 77 14 111/60 99 Mechanical Ventilator 10/03/16 23:00 80 14 40 Intake and Output 10/04/16 10/05/16 19:00 07:00 Intake Total 240 ml Output Total 500 ml Balance -260 ml Intake Oral 240 ml Output Urine Total 350 ml Stool Total 150 ml Laboratory Tests 10/04/16 03:50: White Blood Count 6.0, Red Blood Count 3.15L, Hemoglobin 9.0L, Hematocrit 28.9L , Mean Corpuscular Volume 92, Mean Corpuscular Hemoglobin 28.5, Mean Corpuscular Hemoglobin Concent 31.0L, Red Cell Distribution Width 13.9, Platelet Count 150, Mean Platelet Volume 5.3L, Neutrophils (%) (Auto) 68.3, Lymphocytes (%) (Auto) 20.5, Monocytes (%) (Auto) 7.1, Eosinophils (%) (Auto) 3.3H, Basophils (%) (Auto) 0.8, Sodium Level 138, Potassium Level 4.2, Chloride Level 96L, Carbon Dioxide Level 29, Anion Gap 13, Blood Urea Nitrogen 64H, Creatinine 3.0H, Estimat Glomerular Filtration Rate , Glucose Level 97, Calcium Level 8.7 10/04/16 17:00: Vancomycin Level Trough 33.0H Height (Feet): 5 Height (Inches): 5.00 Weight (Pounds): 355 Objective WD Obese WW NCAT (+) trach Coarse BS RR Soft Obese abd , No TTP no edema non focal BRETT DALE Oct 04, 2016 21:37
[2016-10-04] MEDS: Sucralfate 1gm tab ORAL SCH (22:44)
[2016-10-04] MEDS: Eliquis 2.5mg tablet ORAL SCH (22:44)
[2016-10-04] MEDS: LORazepam Inj 2mg/ml 1ml IV PRN (23:16)
--- NOTE | 2016-10-04 23:30 | Infectious Diseases Prog Note ---
Assessment/Plan Assessment/Plan ASSESSMENT: 1) UGIB , SP EGD 10/04 2) hypovolemic shock, improved 3) borderline leukocytosis, resolved 4) afebrile 5) BLE lymphedema. typical hypertrophic skin, cobblestoning, overlying scale and xerosis. erythema improving with elevation and on IV vancomycin. 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 11) MRSA nares screen negative PLAN: --continue empiric IV vancomycin D# 4/ 5 --elevate BLE --consider compression stockings to BLE and elevation --monitor CBC --monitor temp, hemodynamics --f/u blood cx (09/30) --trach care, asp precautions Subjective Constitutional: Denies: no symptoms, fever, chills, fatigue, anorexia, drenching sweats, other Allergies: Coded Allergies: AMOXICILLIN (Verified Allergy, Mild, RASH, 09/30/16) MORPHINE (Unverified Allergy, Unknown, 09/30/16) PENICILLINS (Unverified Allergy, Unknown, 09/30/16) Objective Vital Signs Last 24 Hour Vital Signs Date Time Temp Pulse Resp B/P (MAP) Pulse Ox O2 Delivery O2 Flow Rate FiO2 10/04/16 22:24 97.5 10/04/16 21:12 71 14 35 10/04/16 20:00 98.5 73 14 96/59 97 Mechanical Ventilator 30 10/04/16 20:00 30 10/04/16 19:52 75 10/04/16 19:00 81 15 35 10/04/16 17:08 85 17 35 10/04/16 16:00 30 10/04/16 16:00 97.5 72 20 131/67 97 Mechanical Ventilator 30 10/04/16 16:00 72 10/04/16 15:18 78 20 35 10/04/16 13:43 56 14 100 10/04/16 13:41 67 14 100 10/04/16 13:13 78 18 40 10/04/16 11:29 97.9 76 22 126/81 97 Mechanical Ventilator 30 10/04/16 11:29 30 10/04/16 11:28 76 10/04/16 10:37 72 17 40 10/04/16 08:53 86 16 40 10/04/16 08:00 78 10/04/16 08:00 30 10/04/16 08:00 98.5 75 20 117/65 96 Mechanical Ventilator 30 10/04/16 07:06 64 14 40 10/04/16 05:08 81 15 40 10/04/16 04:00 30 10/04/16 04:00 75 10/04/16 04:00 98.3 77 22 120/68 96 Mechanical Ventilator 30 10/04/16 02:51 66 15 40 10/04/16 01:30 71 15 40 10/04/16 00:00 98.2 77 14 111/60 99 Mechanical Ventilator 30 Height (Feet): 5 Height (Inches): 5.00 Weight (Pounds): 355 HEENT: mucous membranes moist Respiratory/Chest: normal breath sounds Cardiovascular: regularly irregular Genitourinary: normal external genitalia Laboratory Tests Test 10/04/16 03:50 10/04/16 17:00 White Blood Count 6.0 K/UL (4.8-10.8) Red Blood Count 3.15 M/UL (4.20-5.40) L Hemoglobin 9.0 G/DL (12.0-16.0) L Hematocrit 28.9 % (37.0-47.0) L Mean Corpuscular Volume 92 FL (80-99) Mean Corpuscular Hemoglobin 28.5 PG (27.0-31.0) Mean Corpuscular Hemoglobin Concent 31.0 G/DL (32.0-36.0) L Red Cell Distribution Width 13.9 % (11.6-14.8) Platelet Count 150 K/UL (150-450) Mean Platelet Volume 5.3 FL (6.5-10.1) L Neutrophils (%) (Auto) 68.3 % (45.0-75.0) Lymphocytes (%) (Auto) 20.5 % (20.0-45.0) Monocytes (%) (Auto) 7.1 % (1.0-10.0) Eosinophils (%) (Auto) 3.3 % (0.0-3.0) H Basophils (%) (Auto) 0.8 % (0.0-2.0) Sodium Level 138 mEQ/L (135-145) Potassium Level 4.2 mEQ/L (3.4-4.9) Chloride Level 96 mEQ/L (98-107) L Carbon Dioxide Level 29 mEQ/L (20-30) Anion Gap 13 (5-15) Blood Urea Nitrogen 64 mg/dL (7-23) H Creatinine 3.0 mg/dL (0.5-0.9) H Estimat Glomerular Filtration Rate mL/min (>60) Glucose Level 97 mg/dL (74-106) Calcium Level 8.7 mg/dL (8.6-10.2) Vancomycin Level Trough 33.0 ug/mL (5.0-12.0) H Current Medications Medications (Trade) Dose Ordered Sig/Kalyn Route PRN Reason Start Time Stop Time Status Last Admin Dose Admin Acetaminophen (Tylenol) 650 mg Q4H PRN ORAL FEVER 09/30/16 21:30 10/30/16 21:29 Acetaminophen/ Codeine Phosphate (Tylenol #3) 1 tab Q4H PRN ORAL Severe Pain (Pain Scale 7-10) 10/04/16 21:00 10/11/16 20:59 10/04/16 21:25 Albuterol/ Ipratropium (DuoNeb 0.5-3(2.5)mg/3ml) 3 ml Q4H PRN HHN Shortness of Breath 10/03/16 14:00 10/08/16 13:59 Apixaban (Eliquis) 2.5 mg BID ORAL 10/04/16 22:00 11/03/16 21:59 10/04/16 22:44 Dextrose (Dextrose 50%) STAT PRN IV Hypoglycemia 09/30/16 21:30 10/30/16 21:29 Epoetin Santos (Procrit (for ESRD on dialysis)) 5,000 units TUE-TUE-TUE SUBQ 10/04/16 21:00 11/03/16 20:59 10/04/16 21:26 Furosemide (Lasix) 20 mg TWICE A DAY GT 10/01/16 18:00 10/31/16 08:59 10/04/16 17:32 Gabapentin (Neurontin) 600 mg TWICE A DAY GT 10/01/16 18:00 10/31/16 08:59 10/04/16 17:32 Lorazepam (Ativan 2mg/ml 1ml) 2 mg Q2H PRN IV For Anxiety 09/30/16 21:30 10/07/16 21:29 10/04/16 23:16 Ondansetron HCl (Zofran) 4 mg Q6H PRN IVP Nausea & Vomiting 09/30/16 21:30 10/30/16 21:29 10/01/16 08:57 Pantoprazole (Protonix) 40 mg EVERY 12 HOURS ORAL 10/02/16 14:00 11/01/16 13:59 10/04/16 21:25 Polyethylene Glycol (Miralax) 17 gm DAILYPRN PRN GT Constipation 10/01/16 16:30 10/30/16 21:29 Sevelamer Carbonate (Renvela) 800 mg THREE TIMES A DAY ORAL 10/01/16 09:00 10/31/16 08:59 10/04/16 17:32 Sildenafil Citrate (Revatio) 20 mg THREE TIMES A DAY GT 10/01/16 18:00 10/31/16 08:59 10/04/16 17:32 Sucralfate (Carafate) 1 gm FOUR TIMES A DAY ORAL 10/04/16 22:00 11/03/16 21:59 10/04/16 22:44 Vancomycin HCl (Vanco rx to dose) 1 ea DAILY PRN MISC PRN RX PROTOCOL 10/01/16 16:45 10/31/16 16:44 LINDSEY HILL M.D. Oct 04, 2016 23:30
[2016-10-05] VITALS: BP 110/62
--- NOTE | 2016-10-05 01:30 | Procedure Note ---
DATE OF PROCEDURE: 10/04/2016 SURGEON: Bolivar Noriega M.D. PROCEDURE: Upper endoscopy with biopsy. ANESTHESIA: Per Barbara Joshi M.D. INSTRUMENT: Olympus adult flexible upper endoscope. INDICATION: Anemia and GI bleeding. REASON FOR PROCEDURE: The procedure, risks, benefits, and possible consequences, including hemorrhage, aspiration, perforation and infection, and alternative treatments, were explained to the patient/legal guardian by Dr. Bolivar Noriega and the patient/legal guardian understood and accepted these risks. PROCEDURE: After informed consent was obtained and the patient was adequately sedated, Olympus upper endoscope was advanced from mouth and second portion of the duodenum and retroflexion was performed of the stomach. The patient has evidence of diffuse severe gastritis in the body of the stomach in proximal body, it was localized. No active bleeding at this time. Biopsy from this area was obtained. The patient had also 300 mL of bile aspirated in this procedure, so the patient had currently evidence of bile reflux into the stomach. The rest of the examination grossly was within normal limits. No obvious esophagitis. No obvious gastric ulceration. No duodenal ulceration. At this time, the upper endoscope was retrieved and the procedure was terminated. SUMMARY OF FINDINGS: 1. Focal patchy severe gastritis in the body of the stomach, status post biopsy. 2. Bile reflux with 300 mL of bile was aspirated. RECOMMENDATIONS: Follow up biopsy results and treat accordingly. I want to thank, Dr. Rodriguez, for this kind referral. Bolivar Noriega M.D. DR: PEMA JOB#: [id number] CC: Mary Rodriguez M.D.; Fax#: [phone]
--- NOTE | 2016-10-05 02:29 | Wound Care Consultation ---
Wound Assessment Wound Assessment #1: Wound Number: 1 Wound Present on Admission: Yes New Wound: No Status Change of Wound: No Wound Location Body Site Modif: left Wound Location Body Site: trochanter Wound Type: blister - intact blister Joya Test: Does not Joya Pressure Ulcer Stage: II Wound Thickness: Partial Thickness Wound Length: 1.5 Wound Width: 2.0 Percent of Wound Bed Yellow/Wh: 100 Wound Drainage Amount: None Wound Drainage Odor: None/Absent Tissue Surrounding Wound: Intact Wound Assessment #2: Wound Number: 2 Wound Present on Admission: Yes New Wound: No Status Change of Wound: No Wound Location Body Site Modif: right, upper, medial Wound Location Body Site: thigh Wound Type: blister - open blister Joya Test: Does not Joya Pressure Ulcer Stage: II Wound Thickness: Partial Thickness Wound Length: 0.8 Wound Width: 0.8 Wound Depth: less than 0.1 Percent of Wound [place]/Red: 100 Wound Drainage Description: Serosanguineous Wound Drainage Amount: Scant Wound Drainage Odor: None/Absent Tissue Surrounding Wound: Intact Wound General Appearance: Reddened Wound Assessment #3: Wound Number: 3 Wound Present on Admission: Yes New Wound: No Status Change of Wound: No Wound Location Body Site Modif: left Wound Location Body Site: breast fold Wound Type: blister - intact Joya Test: Does not Joya Wound Thickness: Partial Thickness Wound Length: 0.5 Wound Width: 0.8 Percent of Wound [place]/Red: 100 Wound Drainage Amount: None Wound Drainage Odor: None/Absent Tissue Surrounding Wound: Intact Wound General Appearance: Reddened Wound Assessment #4: Wound Number: 4 Wound Present on Admission: Yes New Wound: No Status Change of Wound: No Wound Location Body Site Modif: left Wound Location Body Site: breast fold Wound Type: erosion Joya Test: Does not Joya Wound Thickness: Partial Thickness Wound Length: 2.0 Wound Width: 3.0 Percent of Wound [place]/Red: 100 Wound Drainage Description: Serosanguineous Wound Drainage Amount: Scant Wound Drainage Odor: None/Absent Tissue Surrounding Wound: Erythemic Wound General Appearance: Reddened Wound Assessment #5: Wound Number: 5 Wound Present on Admission: Yes New Wound: No Status Change of Wound: No Wound Location Body Site Modif: left, right, lower, anterior Wound Location Body Site: leg Wound Type: other - cellulitis Joya Test: Does not Joya Percent of Wound [place]/Red: 100 Wound Drainage Amount: None Wound Drainage Odor: None/Absent Tissue Surrounding Wound: Erythemic Wound General Appearance: Reddened Wound Comment #1 Left and right anterior lower leg cellulitis #2 Left trochanter intact fluid filled blister #3 Left under breast intact blood filled blister #4 Left breast fold erosion #5 Right inner upper thigh open blister Recommendation -Local wound care per protocol -Turn and reposition -Keep clean and dry -Optimize nutrition -Offload both heels -Heel protector on both heels -Low air loss mattress -Assess and f/u accordingly for any changes JERICA SNADS RN Oct 05, 2016 02:29
[2016-10-05 04:00] VITALS: BP 106/62
[2016-10-05 08:00] VITALS: BP 115/57
[2016-10-05] MEDS: Revatio 20mg tab GT SCH ×2 (09:48→15:24)
[2016-10-05] MEDS: Sucralfate 1gm tab ORAL SCH ×2 (09:49→15:24)
[2016-10-05] MEDS: Eliquis 2.5mg tablet ORAL SCH (09:49)
[2016-10-05 12:00] VITALS: BP 121/63
[2016-10-05] MEDS ORDERED: Tubing IV Secondary IV ONE (14:01)
[2016-10-05] MEDS ORDERED: D5 1/2NS 1000ml IV ONE (14:01)
[2016-10-05] MEDS ORDERED: 1/2 NS 1000ml IV ONE (14:01)
--- NOTE | 2016-10-05 14:29 | General Progress Note ---
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 - Monitor CBC - transfuse PRN Subjective Allergies: Coded Allergies: AMOXICILLIN (Verified Allergy, Mild, RASH, 09/30/16) MORPHINE (Unverified Allergy, Unknown, 09/30/16) PENICILLINS (Unverified Allergy, Unknown, 09/30/16) Subjective Feels OK no events overnight Eliquis restarted last night carafate added to PPI Objective Last 24 Hour Vital Signs Date Time Temp Pulse Resp B/P (MAP) Pulse Ox O2 Delivery O2 Flow Rate FiO2 10/05/16 12:00 98.1 74 18 121/63 100 Mechanical Ventilator 35 10/05/16 11:35 30 10/05/16 11:35 69 10/05/16 11:24 75 15 35 10/05/16 09:03 78 14 35 10/05/16 08:00 65 10/05/16 08:00 30 10/05/16 08:00 97.5 82 19 115/57 97 Mechanical Ventilator 35 10/05/16 06:53 84 17 35 10/05/16 05:34 81 17 35 10/05/16 04:09 60 10/05/16 04:00 98.4 69 14 106/62 97 Mechanical Ventilator 30 10/05/16 04:00 30 10/05/16 03:23 66 14 35 10/05/16 00:52 66 14 35 10/05/16 00:00 30 10/05/16 00:00 98.0 76 14 110/62 97 Mechanical Ventilator 30 10/04/16 23:47 69 10/04/16 23:16 79 21 35 10/04/16 22:24 97.5 10/04/16 21:12 71 14 35 10/04/16 20:00 98.5 73 14 96/59 97 Mechanical Ventilator 30 10/04/16 20:00 30 10/04/16 19:52 75 10/04/16 19:00 81 15 35 10/04/16 17:08 85 17 35 10/04/16 16:00 30 10/04/16 16:00 97.5 72 20 131/67 97 Mechanical Ventilator 30 10/04/16 16:00 72 10/04/16 15:18 78 20 35 Laboratory Tests 10/04/16 17:00: Vancomycin Level Trough 33.0H Height (Feet): 5 Height (Inches): 5.00 Weight (Pounds): 351 Objective WD Obese WW NCAT (+) trach Coarse BS RR Soft Obese abd , No TTP no edema non focal BRETT DALE Oct 05, 2016 14:29
--- NOTE | 2016-10-05 21:27 | Infectious Diseases Prog Note ---
Assessment/Plan Assessment/Plan ASSESSMENT: 1) UGIB , SP EGD 10/04 2) hypovolemic shock, improved 3) borderline leukocytosis, resolved 4) afebrile 5) BLE lymphedema. typical hypertrophic skin, cobblestoning, overlying scale and xerosis. erythema improving with elevation and on IV vancomycin. 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 11) MRSA nares screen negative PLAN: --continue empiric IV vancomycin D# 5 / , ok to DC pt off of AB Rx --elevate BLE --consider compression stockings to BLE and elevation --monitor CBC --monitor temp, hemodynamics --f/u blood cx (09/30) --trach care, asp precautions Subjective Constitutional: Denies: no symptoms, fever, chills, fatigue, anorexia, drenching sweats, other Allergies: Coded Allergies: AMOXICILLIN (Verified Allergy, Mild, RASH, 09/30/16) MORPHINE (Unverified Allergy, Unknown, 09/30/16) PENICILLINS (Unverified Allergy, Unknown, 09/30/16) Objective Vital Signs Last 24 Hour Vital Signs Date Time Temp Pulse Resp B/P (MAP) Pulse Ox O2 Delivery O2 Flow Rate FiO2 10/05/16 15:40 69 10/05/16 15:40 30 10/05/16 15:06 79 19 35 10/05/16 13:22 74 22 35 10/05/16 12:00 98.1 74 18 121/63 100 Mechanical Ventilator 35 10/05/16 11:35 30 10/05/16 11:35 69 10/05/16 11:24 75 15 35 10/05/16 09:03 78 14 35 10/05/16 08:00 65 10/05/16 08:00 30 10/05/16 08:00 97.5 82 19 115/57 97 Mechanical Ventilator 35 10/05/16 06:53 84 17 35 10/05/16 05:34 81 17 35 10/05/16 04:09 60 10/05/16 04:00 98.4 69 14 106/62 97 Mechanical Ventilator 30 10/05/16 04:00 30 10/05/16 03:23 66 14 35 10/05/16 00:52 66 14 35 10/05/16 00:00 30 10/05/16 00:00 98.0 76 14 110/62 97 Mechanical Ventilator 30 10/04/16 23:47 69 10/04/16 23:16 79 21 35 10/04/16 22:24 97.5 Height (Feet): 5 Height (Inches): 5.00 Weight (Pounds): 351 HEENT: anicteric Respiratory/Chest: no respiratory distress Cardiovascular: normal rate Abdomen: soft, non tender LINDSEY HILL M.D. Oct 05, 2016 21:27
--- NOTE | 2016-10-07 13:42 | Discharge Summary ---
Discharge Summary Hospital Course Date of Admission Sep 30, 2016 at 20:10 Date of Discharge Oct 05, 2016 at 16:30 Admitting Diagnosis UPPER GI BLEED HPI Kamille Christopher is a 75 year old female who was admitted on Sep 30, 2016 at 20: 10 for Upper Gastrointestinal Bleed Hospital Course [id number] Discharge Discharge Disposition Patient was discharged to SNF/Subacute Facility(03) Discharge Diagnoses: Angeline Swenson NP Oct 07, 2016 13:42
--- NOTE | 2016-10-08 02:31 | Discharge Summary 2 SIG ---
DATE OF ADMISSION: 09/30/2016 DATE OF DISCHARGE: 10/05/2016 ATTENDING PHYSICIAN: Manny Nolan M.D. CONSULTANTS: 1. Elidia Rene M.D. 2. Serafin Haines M.D. 3. Mary Rodriguez M.D. 4. Bolivar Noriega M.D. BRIEF HOSPITAL COURSE: The patient is a 75-year-old female with history of diabetes mellitus, morbid obesity, and pulmonary hypertension, recently underwent tracheostomy for chronic hypercapnic respiratory failure and was residing at a subacute rehabilitation. The patient was apparently on Xarelto and developed GI bleed. She was then transferred to [facility] ED where on evaluation, she was noted to be hypotensive and also had lower extremity cellulitis. Hemoglobin was 8.2 and hematocrit was 24. INR was 1.4. Xarelto was discontinued and the patient was initially placed on NPO. She was started on IV vancomycin and received one unit of packed RBC. She underwent EGD on 10/04/[address] Noriega. Findings showed severe gastritis and bile reflux. Pathology showed no H. pylori. No intestinal metaplasia or dysplasia. Blood cultures did not isolate any growth. Urine culture was negative. Upper GI bleed will likely continue intermittently due to gastritis and anticoagulation. Eliquis was resumed and Carafate was added, advised to take for long-term. FINAL DIAGNOSES: 1. Upper gastrointestinal bleed. 2. Atrial fibrillation, on anticoagulation. 3. Renal failure. 4. Status post tracheostomy. 5. Acute anemia requiring blood transfusion, recurrent likely secondary to gastrointestinal bleed. 6. Anemia secondary to chronic disease. 7. Anemia potentially due to B12 deficiency. 8. Respiratory failure requiring BiPAP in the past with ventilator in September 2016. 9. Chronic obstructive pulmonary disease. 10. Morbid obesity. DISPOSITION: The patient was eventually discharged back to subacute. DISCHARGE MEDICATIONS: Refer to medication list. Elidia Rene M.D. I have been assigned to dictate discharge summary on this account and I was not involved in the patient's management. Angeline Swenson N.P. DR: Araseli JOB#: [id number] CC:
== END 2016-10-05 16:30 | DRG 377 ==
LOC: EDBD 19:08 → EMR 20:09 → 2W 20:10 → EDBEDREQSVC 20:58 → EDBEDREQ 21:49 → 2W 23:07
PROC: 5A1955Z Respiratory Ventilation, Greater than 96 Consecutive Hours (ICD-10-PCS; principal; 2016-09-30)
PROC: 30233N1 Transfusion of Nonautologous Red Blood Cells into Peripheral Vein, Percutaneous Approach (ICD-10-PCS; principal; 2016-09-30)
PROC: 30233K1 Transfusion of Nonautologous Frozen Plasma into Peripheral Vein, Percutaneous Approach (ICD-10-PCS; 2016-10-01)
PROC: 0DB68ZX Excision of Stomach, Via Natural or Artificial Opening Endoscopic, Diagnostic (ICD-10-PCS; 2016-10-04)
DX: K29.01 Acute gastritis with bleeding (principal); R57.1 Hypovolemic shock; Z99.11 Dependence on respirator [ventilator] status; N17.9 Acute kidney failure, unspecified; J96.12 Chronic respiratory failure with hypercapnia; I27.2 Other secondary pulmonary hypertension; Z43.0 Encounter for attention to tracheostomy; I95.9 Hypotension, unspecified; E66.2 Morbid (severe) obesity with alveolar hypoventilation; I27.81 Cor pulmonale (chronic); L03.115 Cellulitis of right lower limb; Z68.43 Body mass index [BMI] 50.0-59.9, adult; L03.116 Cellulitis of left lower limb; D62 Acute posthemorrhagic anemia; I50.9 Heart failure, unspecified; J44.9 Chronic obstructive pulmonary disease, unspecified; T45.515A Adverse effect of anticoagulants, initial encounter; E87.5 Hyperkalemia; Z88.1 Allergy status to other antibiotic agents; Z88.6 Allergy status to analgesic agent; Z88.0 Allergy status to penicillin; E11.9 Type 2 diabetes mellitus without complications; Z85.3 Personal history of malignant neoplasm of breast; I12.9 Hypertensive chronic kidney disease with stage 1 through stage 4 chronic kidney disease, or unspecified chronic kidney disease; N18.9 Chronic kidney disease, unspecified; I48.2 Chronic atrial fibrillation; D63.8 Anemia in other chronic diseases classified elsewhere; D51.9 Vitamin B12 deficiency anemia, unspecified; K21.9 Gastro-esophageal reflux disease without esophagitis; I89.0 Lymphedema, not elsewhere classified; F32.9 Major depressive disorder, single episode, unspecified
CPT/HCPCS: 31500; 36415; 36430; 36600; 51702; 71010; 76775; 80048; 80053; 80069; 80202; 81001; 81003; 82270; 82378; 82550; 82553; 82607; 82728; 82746; 82803; 83090; 83540; 83550; 83605; 83615; 83735; 83921; 84100; 84133; 84300; 84484; 84550; 85007; 85025; 85044; 85060; 85610; 85651; 85730; 86850; 86900; 86901; 86920; 86927; 87040; 87081; 87086; 89050; 93005; 93970; 94002; 94003; 94150; J2405

== ENCOUNTER 2016-10-10 23:51 | Inpatient (IN) | payer MEDICARE, MEDICAID ==
[~2016-10-10] VITALS: Ht 167.6 cm; Wt 156.9 kg
[~2016-10-10 23:51] MED LIST changes: +ACETAMINOP160 MG/54 ORAL; +CRANBERRY200 M1 PO; +DUONEB 0.5-3(2.53 ML HHN; +HI-CAL1000 ML PO; +RENA-VITE TABL0.8 M1 PO
[2016-10-11] VITALS (9 sets, daily range): BP systolic 100–129; BP diastolic 46–87
[2016-10-11 00:25] LABS: BASOPHILS % (AUTO) 0.8 % (0.0-2.0); EOSINOPHILS % (AUTO) 2.4 % (0.0-3.0); LYMPHOCYTES % (AUTO) 17.1 % (20.0-45.0); MEAN CORPUSCULAR HEMOGLOBIN 28.5 PG (27.0-31.0); MEAN CORPUSCULAR HGB CONC 30.3 G/DL (32.0-36.0); MEAN CORPUSCULAR VOLUME 94 FL (80-99); MEAN PLATELET VOLUME 5.5 FL (6.5-10.1); NEUTROPHILS % (AUTO) 72.7 % (45.0-75.0); PLATELET COUNT 256 K/UL (150-450); RED BLOOD COUNT 3.32 M/UL (4.20-5.40); RED CELL DISTRIBUTION WIDTH 14.3 % (11.6-14.8); WHITE BLOOD COUNT 13.5 K/UL (4.8-10.8)
[2016-10-11 00:35] LABS: INR 1.1 (0.9-1.1); PROTHROMBIN TIME 11.5 SEC (9.30-11.50)
[2016-10-11 00:42] LABS: ALANINE AMINOTRANSFERASE 5 U/L (3-33); ALBUMIN/GLOBULIN RATIO 0.8 (1.0-2.7); ANION GAP 12 (5-15); ASPARTATE AMINO TRANSFERASE 14 U/L (5-40); CARBON DIOXIDE 33 mEQ/L (20-30); CHLORIDE 99 mEQ/L (98-107); CREATININE 2.7 mg/dL (0.5-0.9); HEMOLYSIS 1; POTASSIUM 3.8 mEQ/L (3.4-4.9); SODIUM 144 mEQ/L (135-145); TOTAL PROTEIN 8.1 g/dL (6.6-8.7)
[2016-10-11 00:45] LABS: TROPONIN I < 0.30 ng/mL (<=0.30)
[2016-10-11] MEDS ORDERED: Albuterol ud Inhalation HHN ONE (00:45)
[2016-10-11 00:52] LABS: CKMB < 1.5 ng/mL (< 3.8)
[2016-10-11] MEDS ORDERED: Ipratropium 0.02% Inh Soln 2.5ml UD HHN ONE (01:00)
[2016-10-11 01:04] LABS: APPEARANCE,URINE SLIGHTLY CLOUDY; KETONES,URINE NEGATIVE (NEGATIVE); LEUKOCYTE ESTERASE ,URINE 1+ (NEGATIVE); NITRITE,URINE NEGATIVE (NEGATIVE); PH,URINE 5 (4.5-8.0); PROTEIN,URINE 2+ (NEGATIVE); UROBILINOGEN,URINE NORMAL MG/DL (0.0-1.0)
[2016-10-11 01:24] LABS: ABG BASE EXCESS 4.3
[2016-10-11 01:25] LABS: ABG ALLEN TEST POSITIVE
[2016-10-11 01:29] LABS: AMORPHOUS SEDIMENT,UR MANY /LPF; BACTERIA,URINE FEW /HPF; RBC,URINE 0-2 /HPF (0 - 2); SQUAMOUS EPITHELIAL CELL,UR MANY /LPF (NONE/OCC); WBC,URINE 0-2 /HPF (0 - 2)
[2016-10-11 01:30] LABS: ICTOTEST NEGATIVE
--- NOTE | 2016-10-11 02:09 | Emergency Room Report ---
History of Present Illness General Chief Complaint: Dyspnea/Respdistress Source: Patient, Medical Record, EMS Present Illness HPI This is a morbidly obese 76-year-old female coming from senior living. She has a history of COPD with respiratory failure on a tracheostomy. She also history of atrial fibrillation on anticoagulations. She presents with chief complaint of coffee-ground emesis and as respiratory distress. Per EMS, oxygenation on room air was in the 70th percentile. They took her up to the ventilator and brought her here. Patient complained of cough. No chest pain. Has nausea and vomiting. No diarrhea. Similar presentation in the past. Allergies: Coded Allergies: AMOXICILLIN (Verified Allergy, Mild, RASH, 09/30/16) MORPHINE (Unverified Allergy, Unknown, 09/30/16) PENICILLINS (Unverified Allergy, Unknown, 09/30/16) Patient History Past Medical History: see triage record, old chart reviewed Past Surgical History: other Pertinent Family History: none Social History: Denies: smoking Now: No Immunizations: other Reviewed Nursing Documentation: PMH: Agreed, PSxH: Agreed Nursing Documentation-PMH Past Medical History: No History, Except For Hx Cardiac Problems: Yes - A. fib., CHF, Hyperlipidemia Hx Hypertension: Yes Hx COPD: Yes - Acute Resp. failure, Vent dependent Hx Diabetes: Yes Hx Cancer: Yes Hx Gastrointestinal Problems: Yes - GERD History Of Psychiatric Problem: No - Mordbid Obesity Hx Neurological Problems: No Hx Seizures: Yes Review of Systems Eye: Denies: eye pain, blurred vision ENT: Denies: ear pain, nose congestion, throat swelling Respiratory: Reports: shortness of breath, Denies: cough Cardiovascular: Denies: chest pain, palpitations Gastrointestinal: Reports: nausea, vomiting, hematemesis, Denies: abdominal pain, diarrhea Musculoskeletal: Denies: back pain, joint pain Skin: Denies: rash Neurological: Denies: headache, numbness Endocrine: Denies: increased thirst, increased urine Hematologic/Lymphatic: Denies: easy bruising All Other Systems: negative except mentioned in HPI Physical Exam Vital Signs Date Time Temp Pulse Resp B/P (MAP) Pulse Ox O2 Delivery O2 Flow Rate FiO2 10/10/16 23:34 112 129/87 98 Mechanical Ventilator 10/11/16 00:05 19 40 10/11/16 00:05 98.2 vitals with tachycardia Sp02 EP Interpretation: reviewed, normal General Appearance: alert, mild distress, Chronically Ill Head: normocephalic, atraumatic Eyes: bilateral eye PERRL, bilateral eye EOMI ENT: hearing grossly normal, normal pharynx Neck: full range of motion, supple, no meningismus, other - Mild blood around the tracheostomy site Respiratory: chest non-tender, rales Cardiovascular #1: regular rate, rhythm, no murmur Gastrointestinal: normal bowel sounds, non tender, no mass, no organomegaly, no bruit, non-distended Musculoskeletal: back normal Neurologic: alert Psychiatric: mood/affect normal Skin: warm/dry Procedures Critical Care Time Critical Care Time Critical care is mandated in this patient who presented with respiratory distress secondary to possible aspiration. Patient require my urgent intervention to attenuate the risks of metabolic which may lead to cardiovascular collapse and . Critical care time is 35 minutes excluding any reportable procedure. Critical care time included evaluation, multiple reevaluation, looking at old charts, interpreting laboratory and diagnostic data , discussing case with patient and family and consultants, and charting. Medical Decision Making Diagnostic Impression: Primary Impression: Hematemesis Qualified Codes: K92.0 - Hematemesis; R11.0 - Nausea Additional Impressions: GI bleed Qualified Codes: K92.0 - Hematemesis COPD with exacerbation Anemia Qualified Codes: D64.9 - Anemia, unspecified Atrial fibrillation, chronic Morbid obesity ER Course Patient with upper GI bleeding with emesis. Hemoglobin is stable. Kidney function is at baseline. She fell better on the ventilator. Breathing treatment given. Will admit for continued monitoring and hemoglobin recheck. I discussed the case with Dr. Rene who will admit. Lab Results Impression labs at baseline EKG Diagnostic Results Rate: normal, other - afib Rhythm: other - afib ST Segments: no acute changes Rhythm Strip Diag. Results Rhythm Strip Time: 02:08 EP Interpretation: yes Rate: 95 Rhythm: no PVC's, no ectopy Chest X-Ray Diagnostic Results Chest X-Ray Diagnostic Results : Chest X-Ray Ordered: Yes # of Views/Limited/Complete: 1 View Indication: Shortness of Breath EP Interpretation: Yes Interpretation: no consolidation, no effusion, no pneumothorax, no acute cardiopulmonary disease, other - CM Impression: No acute disease Interpreting ER Provider: Electronically signed by Ted Sherman MD Last Vital Signs Date Time Temp Pulse Resp B/P (MAP) Pulse Ox O2 Delivery O2 Flow Rate FiO2 10/11/16 00:05 98.2 109 19 129/87 98 Mechanical Ventilator 40 Status: improved Disposition: ADMITTED INPATIENT Condition: Serious Referrals: ARASH RENE (PCP) TED SHERMAN M.D. Oct 11, 2016 02:09
[2016-10-11] MEDS ORDERED: Pantoprazole Inj ONE (02:36)
[2016-10-11] MEDS ORDERED: Famotidine 20 MG/ 2ML VIAL IVP ONE (02:45)
[2016-10-11] MEDS ORDERED: Metoclopramide 10mg/2ml Inj IVP ONE (04:45)
[2016-10-11 05:16] LABS: BASOPHILS % (AUTO) 0.9 % (0.0-2.0); EOSINOPHILS % (AUTO) 0.7 % (0.0-3.0); LYMPHOCYTES % (AUTO) 6.1 % (20.0-45.0); MEAN CORPUSCULAR HEMOGLOBIN 29.1 PG (27.0-31.0); MEAN CORPUSCULAR HGB CONC 31.2 G/DL (32.0-36.0); MEAN CORPUSCULAR VOLUME 93 FL (80-99); MEAN PLATELET VOLUME 5.1 FL (6.5-10.1); MONOCYTES % (AUTO) 7.3 % (1.0-10.0); NEUTROPHILS % (AUTO) 84.9 % (45.0-75.0); PLATELET COUNT 216 K/UL (150-450); RED BLOOD COUNT 2.96 M/UL (4.20-5.40); WHITE BLOOD COUNT 9.9 K/UL (4.8-10.8)
[2016-10-11 05:40] LABS: ALANINE AMINOTRANSFERASE 5 U/L (3-33); ALBUMIN/GLOBULIN RATIO 0.7 (1.0-2.7); ANION GAP 13 (5-15); ASPARTATE AMINO TRANSFERASE 13 U/L (5-40); CALCIUM 8.8 mg/dL (8.6-10.2); CARBON DIOXIDE 30 mEQ/L (20-30); CHLORIDE 98 mEQ/L (98-107); CREATININE 2.6 mg/dL (0.5-0.9); HEMOLYSIS 0; POTASSIUM 3.6 mEQ/L (3.4-4.9); SODIUM 141 mEQ/L (135-145); TOTAL PROTEIN 7.5 g/dL (6.6-8.7)
[2016-10-11] MEDS ORDERED: Mylanta II UD 30ml ORAL PRN (07:45)
[2016-10-11] MEDS ORDERED: Miralax 17gm pkt ORAL PRN (07:45)
[2016-10-11] MEDS ORDERED: Nitroglycerin Subl 0.4mg tab (Bottle Of 25) SL PRN (07:45)
[2016-10-11] MEDS: D5 1/2NS 1,000 ML IV SCH ×2 (09:12→22:52)
[2016-10-11] MEDS: Calcitriol 0.25mcg Cap ORAL SCH (09:12)
[2016-10-11] MEDS: Revatio 20mg tab ORAL SCH ×3 (09:12→18:06)
--- NOTE | 2016-10-11 09:26 | Diagnostic Imaging Report ---
Indication: SOB Technique: One view of the chest Comparison: 10/04/2016 Findings: The heart is enlarged. There is a tracheostomy. There is minimal interstitial congestion again demonstrated. Findings are unchanged Impression: Unchanged, over 5 days, findings as above.
--- NOTE | 2016-10-11 12:48 | History and Physical ---
History of Present Illness General Time patient seen: 09:30 Reason for Hospitalization: Dyspnea/Respdistress Present Illness Allergies: Coded Allergies: AMOXICILLIN (Verified Allergy, Mild, RASH, 09/30/16) MORPHINE (Unverified Allergy, Unknown, 09/30/16) PENICILLINS (Unverified Allergy, Unknown, 09/30/16) Medication History Scheduled Apixaban (Eliquis), 2.5 MG PO BID, (Reported) Calcitriol (Calcitriol), 0.25 MCG ORAL DAILY, (Reported) Calcium Carbonate (Calcium Carbonate), 1,250 MG ORAL BID, (Reported) Cranberry Extract (Cranberry), 200 MG PO DAILY, (Reported) Cyanocobalamin (Vitamin B-12)* (Vitamin B-12*), 3,000 MCG ORAL DAILY, (Reported) Docusate Sodium* (Docusate Sodium*), 100 MG ORAL TWICE A DAY, (Reported) Fluticasone Propionate* (Fluticasone Propionate*), 1 SPRAY NASAL DAILY, ( Reported) Folic Acid* (Folic Acid*), 1 MG ORAL DAILY, (Reported) Folic Acid/Vitamin B Comp W-C (Jessi-Barbara Tablet), 0.8 MG PO DAILY, (Reported) Furosemide* (Lasix*), 20 MG ORAL TWICE A DAY, (Reported) Gabapentin* (Gabapentin*), 600 MG ORAL TWICE A DAY, (Reported) Lactobacillus Acidophilus (Probiotic), 1 EACH PO DAILY, (Reported) Letrozole (Femara), 2.5 MG ORAL DAILY, (Reported) Lidocaine (Lidocaine), 700 MG TP EVERY 24 HOURS, (Reported) Nutritional Supplement (Hi-Mark), 1,000 ML PO TID, (Reported) Pantoprazole (Pantoprazole), 40 MG ORAL DAILY, (Reported) Polyethylene Glycol 3350* (Miralax*), 17 GM ORAL DAILY, (Reported) Pravastatin Sod* (Pravastatin Sod*), 20 MG ORAL BEDTIME, (Reported) Prednisone* (Prednisone*), 10 MG ORAL DAILY, (Reported) Sevelamer Carbonate (Renvela), 800 MG ORAL THREE TIMES A DAY Sildenafil Citrate (Revatio), 20 MG ORAL THREE TIMES A DAY Scheduled PRN Acetaminophen* (Acetaminophen*), 650 MG ORAL Q4HR PRN for Fever/Headache/Mild Pain, (Reported) Ipratropium/Albuterol Sulfate (DuoNeb 0.5-3(2.5)mg/3ml), 3 ML HHN Q6HR PRN for Shortness of Breath, (Reported) Patient History Healthcare decision maker Resuscitation status Full Code Advanced Directive on File Physical Exam Last 24 Hour Vital Signs Date Time Temp Pulse Resp B/P (MAP) Pulse Ox O2 Delivery O2 Flow Rate FiO2 10/11/16 12:00 97.7 72 16 103/56 98 Mechanical Ventilator 40 10/11/16 08:32 86 15 40 10/11/16 08:00 40 10/11/16 08:00 78 10/11/16 07:30 97.8 73 15 102/46 100 Mechanical Ventilator 40 10/11/16 07:30 93 20 40 10/11/16 07:30 97.8 73 15 103/46 100 Mechanical Ventilator 40 10/11/16 06:20 97.8 77 18 103/49 100 Mechanical Ventilator 40 10/11/16 05:00 76 16 40 10/11/16 05:00 84 19 100/56 99 Mechanical Ventilator 40 10/11/16 03:30 98.4 94 18 114/70 100 Mechanical Ventilator 40 10/11/16 03:03 92 14 40 10/11/16 02:10 93 14 102/54 98 Mechanical Ventilator 40 10/11/16 00:10 95 18 100 Mechanical Ventilator 40 10/11/16 00:05 98.2 109 19 129/87 98 Mechanical Ventilator 40 10/11/16 00:05 40 10/11/16 00:05 109 19 Mechanical Ventilator 40 10/11/16 00:00 114 18 96 Mechanical Ventilator 40 10/11/16 00:00 40 10/10/16 23:50 114 18 40 10/10/16 23:34 112 129/87 98 Mechanical Ventilator Intake and Output 10/11/16 10/12/16 19:00 07:00 # Bowel Movements 2 Laboratory Tests Test 10/11/16 00:00 10/11/16 00:40 10/11/16 00:53 10/11/16 04:50 White Blood Count 13.5 K/UL (4.8-10.8) H 9.9 K/UL (4.8-10.8) Red Blood Count 3.32 M/UL (4.20-5.40) L 2.96 M/UL (4.20-5.40) L Hemoglobin 9.5 G/DL (12.0-16.0) L 8.6 G/DL (12.0-16.0) L Hematocrit 31.2 % (37.0-47.0) L 27.6 % (37.0-47.0) L Mean Corpuscular Volume 94 FL (80-99) 93 FL (80-99) Mean Corpuscular Hemoglobin 28.5 PG (27.0-31.0) 29.1 PG (27.0-31.0) Mean Corpuscular Hemoglobin Concent 30.3 G/DL (32.0-36.0) L 31.2 G/DL (32.0-36.0) L Red Cell Distribution Width 14.3 % (11.6-14.8) 14.0 % (11.6-14.8) Platelet Count 256 K/UL (150-450) 216 K/UL (150-450) Mean Platelet Volume 5.5 FL (6.5-10.1) L 5.1 FL (6.5-10.1) L Neutrophils (%) (Auto) 72.7 % (45.0-75.0) 84.9 % (45.0-75.0) H Lymphocytes (%) (Auto) 17.1 % (20.0-45.0) L 6.1 % (20.0-45.0) L Monocytes (%) (Auto) 7.0 % (1.0-10.0) 7.3 % (1.0-10.0) Eosinophils (%) (Auto) 2.4 % (0.0-3.0) 0.7 % (0.0-3.0) Basophils (%) (Auto) 0.8 % (0.0-2.0) 0.9 % (0.0-2.0) Prothrombin Time 11.5 SEC (9.30-11.50) Prothromb Time International Ratio 1.1 (0.9-1.1) Activated Partial Thromboplast Time 26 SEC (23-33) Sodium Level 144 mEQ/L (135-145) 141 mEQ/L (135-145) Potassium Level 3.8 mEQ/L (3.4-4.9) 3.6 mEQ/L (3.4-4.9) Chloride Level 99 mEQ/L (98-107) 98 mEQ/L (98-107) Carbon Dioxide Level 33 mEQ/L (20-30) H 30 mEQ/L (20-30) Anion Gap 12 (5-15) 13 (5-15) Blood Urea Nitrogen 63 mg/dL (7-23) H 62 mg/dL (7-23) H Creatinine 2.7 mg/dL (0.5-0.9) H 2.6 mg/dL (0.5-0.9) H Estimat Glomerular Filtration Rate mL/min (>60) mL/min (>60) Glucose Level 161 mg/dL (74-106) H 133 mg/dL (74-106) H Lactic Acid Level 0.80 mmol/L (0.66-2.22) Calcium Level 9.0 mg/dL (8.6-10.2) 8.8 mg/dL (8.6-10.2) Total Bilirubin 0.5 mg/dL (0.0-1.2) 0.4 mg/dL (0.0-1.2) Aspartate Amino Transf (AST/SGOT) 14 U/L (5-40) 13 U/L (5-40) Alanine Aminotransferase (ALT/SGPT) 5 U/L (3-33) 5 U/L (3-33) Alkaline Phosphatase 79 U/L (35-104) 73 U/L (35-104) Total Creatine Kinase 61 U/L (26-140) Creatine Kinase MB < 1.5 ng/mL (< 3.8) Creatine Kinase MB Relative Index 2.4 Troponin I < 0.30 ng/mL (<=0.30) Total Protein 8.1 g/dL (6.6-8.7) 7.5 g/dL (6.6-8.7) Albumin 3.8 g/dL (3.5-5.2) 3.1 g/dL (3.5-5.2) L Globulin 4.3 g/dL 4.4 g/dL Albumin/Globulin Ratio 0.8 (1.0-2.7) L 0.7 (1.0-2.7) L Urine Color Yellow Urine Appearance Slightly cloudy Urine pH 5 (4.5-8.0) Urine Specific [place] 1.025 (1.005-1.035) Urine Protein 2+ (NEGATIVE) H Urine Glucose (UA) Negative (NEGATIVE) Urine Ketones Negative (NEGATIVE) Urine Occult Blood 1+ (NEGATIVE) H Urine Nitrite Negative (NEGATIVE) Urine Bilirubin 2+ (NEGATIVE) H Urine Ictotest Negative Urine Urobilinogen Normal MG/DL (0.0-1.0) Urine Leukocyte Esterase 1+ (NEGATIVE) H Urine RBC 0-2 /HPF (0 - 2) Urine WBC 0-2 /HPF (0 - 2) Urine Squamous Epithelial Cells Many /LPF (NONE/OCC) H Urine Amorphous Sediment Many /LPF (NONE) H Urine Bacteria Few /HPF (NONE) Arterial Blood pH 7.301 (7.350-7.450) Arterial Blood Partial Pressure CO2 66.0 mmHg (35.0-45.0) *H Arterial Blood Partial Pressure O2 124.7 mmHg (75.0-100.0) H Arterial Blood HCO3 31.8 mmol/L (22.0-26.0) H Arterial Blood Oxygen Saturation 98.1 % (92.0-98.0) H Arterial Blood Base Excess 4.3 Mike Test Positive Height (Feet): 5 Height (Inches): 6.00 Weight (Pounds): 346 Medications Current Medications Medications (Trade) Dose Ordered Sig/Kalyn Route PRN Reason Start Time Stop Time Status Last Admin Dose Admin Acetaminophen (Tylenol) 650 mg Q4H PRN ORAL fever 10/11/16 07:45 11/10/16 07:44 Al Hydroxide/Mg Hydroxide (Mylanta II) 30 ml Q6H PRN ORAL dyspepsia 10/11/16 07:45 11/10/16 07:44 Albuterol/ Ipratropium (DuoNeb 0.5-3(2.5)mg/3ml) 3 ml EVERY 8 HOURS HHN 10/11/16 14:00 10/16/16 13:59 Calcitriol (Rocatrol) 0.25 mcg DAILY ORAL 10/11/16 09:00 11/10/16 08:59 10/11/16 09:12 Dextrose (Dextrose 50%) STAT PRN IV Hypoglycemia 10/11/16 07:45 11/10/16 07:44 Dextrose/Sodium Chloride 1,000 ml @ 75 mls/hr [id number] IV 10/11/16 09:00 11/10/16 08:59 10/11/16 09:12 Diphenhydramine HCl (Benadryl) 25 mg Q6H PRN ORAL Itching/Pruritis 10/11/16 07:45 11/10/16 07:44 Furosemide (Lasix) 20 mg BID ORAL 10/11/16 09:00 11/10/16 08:59 10/11/16 09:12 Ondansetron HCl (Zofran) 4 mg Q6H PRN IVP Nausea & Vomiting 10/11/16 07:45 11/10/16 07:44 Polyethylene Glycol (Miralax) 17 gm HSPRN PRN ORAL Constipation 10/11/16 07:45 11/10/16 07:44 Sevelamer Carbonate (Renvela) 800 mg THREE TIMES A DAY ORAL 10/11/16 09:00 11/10/16 08:59 10/11/16 12:47 Sildenafil Citrate (Revatio) 20 mg THREE TIMES A DAY ORAL 10/11/16 09:00 11/10/16 08:59 10/11/16 12:47 [facility]aint [facility] center[facility]aqu[facility] Kwok NP Oct 11, 2016 12:48
[2016-10-11] MEDS: DuoNeb 0.5-3(2.5)mg/3ml neb HHN SCH ×2 (15:24→21:09)
--- NOTE | 2016-10-11 16:21 | Infectious Diseases Prog Note ---
Infectious Disease Consult Infectious Disease Consult Infectious Disease Consult INFECTIOUS DISEASE CONSULTATION DATE OF CONSULTATION: 11Oct2016 CONSULTING PHYSICIAN: Radhames Canchola M.D., MTM&H, CTropMed Covering for Dr. Milan REFERRING PHYSICIAN: Dr. 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 + coffee ground emesis. occ cough with h/o COPD, no chest pain, no h/a, no diarrhea, no rash, no fevers, and she has been afebrile since ER evaluation. During the last admission she did have some hypotension early the UGIB, which is largely why she received 5days IV vancomycin, never found to have focal source of infection, and managed for severe gastritis. When admitted last night , noted to have Chronic respiratory failure with hypercapnia, Hyperkalemia, Anemia, Renal failure, and has been given aminocaproic acid. recent infection hx notable for LLE cellulitis in April2016 treated with 10D IV vanc/levofloxacin /aztreonam, VRE UTI treated with linezolid in April2016, and s/p 10D IV ertapenem completed on 18sep2016 for ESBL E coli UTI. she does not have any indwelling catheters. a new pichardo was placed. b/l dopplers obtained on 01oct2016 negative for DVT. Today has 1v CXR w/ pulmonary edema that is stable but no infiltrate or effusion, blood cx obtained, given one dose of levofloxacin. Repeat ble dopplers today negative for DVT or fluid collection. ABG notable for hypercapneia, initial Leukocytosis of 13.5 has normalized within 8 hrs, and u/a with 1+ LE but no WBC. Patient previously known to me s/ p consultation on 01oct2016 for BLE lymphedema. ROS not able to be obtained. PAST MEDICAL HISTORY: VDRF Obesity CHF HTN COPD GERD. DM CKD, Stage IV (baseline SCr ~3) afib previously on on apixaban severe pulmonary HTN LLE cellulitis [id number] with 10d IV vanc/levofloxacin/aztreonam VRE UTI--[id number]--[id number] with Linezolid ESBL UTI--[id number]--[id number] with IV ertapenem completed on 18sep2016 BLE lymphedema--s/p D#5 IV vanc completed on 05oct2016 UGIB (01oct2016)-->severe gastritis h/o VRE colonization Past Surgical History: s/p trach ALLERGIES: No known drug allergies. ANTIBIOTICS: Home and hospitalized medications reviewed. Current abx: s/p Levofloxacin x1 last night SOCIAL HISTORY: resident of nursing home care facility FAMILY HISTORY: Noncontributory REVIEW OF SYSTEMS: 11 point ROS negative except for that mentioned in HPI above. PHYSICAL EXAM: VITAL SIGNS: Tm 98.2 bp 103/56 hr 75 rr 14 satting 98% on vent with FIO2 40% GEN: trach, on vent, full vent support, elevated peak pressures, non toxic appearing HEENT: Mild pale conjunctiva. oral mucosa dry, pharynx w/o exudate or effusion. No icterus. Head normocephalic, neck supple. neck thick. no cellulitis. no NGT in place NECK: No cervical LAD CHEST: scattered rhonchi, decreased breast sounds at base HEART: S1 and S2, no murmurs, no rubs. ABDOMEN: soft, obese, non tender, non distended, normoactive bowel sounds. EXTREMITIES: No cyanosis, no clubbing, has chronic ble lymphedema. circumferential erythema, cobblestoning of skin, no skin tears, + xerosis, hyperkeratotic. no onychomycosis. NEUROLOGIC: Awake, alert, no focal neurologic motor deficits. : no external lesions LYMPH: nl LAD RECTAL: deferred. LABORATORY AND DIAGNOSTIC DATA: WBC 13.5 (PMN 72%)-->9.9 hgb 9.5-->8.6 plt 256 alb 3.1 BUN 62, SCr 2.6 u/a 1.025/2+ prot/1+ LE/0-2 WBC labs reviewed, blood cx pending RADIOLOGY: Patient : YUVAL RIVERA Referring Physician: ARLENE GILMAN M.D. ID Number: [id number] Service Date: 10/10/16 : 1940 Report Date: 10/10/16 Gender: F Accession No.: [id number] Location: 2W Procedure: XRAY Chest 1v Indication: SOB Technique: One view of the chest Comparison: 10/04/2016 Findings: The heart is enlarged. There is a tracheostomy. There is minimal interstitial congestion again demonstrated. Findings are unchanged Impression: Unchanged, over 5 days, findings as above. 10/02/16: b/l dopplers negative for DVT. + edema ASSESSMENT AND PLAN ASSESSMENT: 1) recurrent UGIB, s/p EGD 10/04 with severe gastritis 2) sepsis, resolving 3) borderline leukocytosis, resolved 4) afebrile 5) BLE lymphedema. typical hypertrophic skin, cobblestoning, overlying scale and xerosis. looks less erythematous than last admission. no evidence of secondary skin/soft tissue infection. s/p BLE dopplers negative for DVT 6) elevated ESR (93mm/hr), non specific, in setting of acute bleed 7) hypercapneic resp failure, VDRF 8) CKD 9) recent admission with negative infection w/u 10) h/o VRE colonization 11) h/o ESBL E coli UTI, s/p Rx early 12) remote h/o VRE UTI April2016 13) u/a negative for pyuria. no evidence of UTI. 14) recent MRSA screen negative PLAN: --Monitor off abx --elevate BLE --consider compression stockings to BLE --monitor CBC --monitor temp, hemodynamics --f/u urine cx --trach care, asp precautions Thank you for this consultation. Will continue to follow. Covering for Dr. Milan, please call me with questions, Radhames Canchola M.D. Oct 11, 2016 16:21
--- NOTE | 2016-10-11 16:43 | History and Physical ---
History of Present Illness General Date patient seen: Oct 11, 2016 Time patient seen: 11:30 Reason for Hospitalization: Dyspnea/Respdistress Present Illness HPI 76 y/old female with hx of permanent A fib, on anticoagulation, recurrent GI bleeding, respiratory failure, tracheostomy status, severe pulmonary HTN, chronic kidney disease, anemia , was sent from SNF for evaluation for coffee ground emesis and respiratory distress by EMS patient was hooked up to vent ABG in ED revealed evidence of acidosis, hypercapnia and hypoxemia afebrile, WBC-13.5 HH -9.5/31.2 INR-1.1 troponin negative BUN-63 and creat 2.7 c/w known hx of CKD CXR revealed mild congestion patient was admitted for further management Allergies: Coded Allergies: AMOXICILLIN (Verified Allergy, Mild, RASH, 09/30/16) MORPHINE (Unverified Allergy, Unknown, 09/30/16) PENICILLINS (Unverified Allergy, Unknown, 09/30/16) Medication History Scheduled Apixaban (Eliquis), 2.5 MG PO BID, (Reported) Calcitriol (Calcitriol), 0.25 MCG ORAL DAILY, (Reported) Calcium Carbonate (Calcium Carbonate), 1,250 MG ORAL BID, (Reported) Cranberry Extract (Cranberry), 200 MG PO DAILY, (Reported) Cyanocobalamin (Vitamin B-12)* (Vitamin B-12*), 3,000 MCG ORAL DAILY, (Reported) Docusate Sodium* (Docusate Sodium*), 100 MG ORAL TWICE A DAY, (Reported) Fluticasone Propionate* (Fluticasone Propionate*), 1 SPRAY NASAL DAILY, ( Reported) Folic Acid* (Folic Acid*), 1 MG ORAL DAILY, (Reported) Folic Acid/Vitamin B Comp W-C (Jessi-Barbara Tablet), 0.8 MG PO DAILY, (Reported) Furosemide* (Lasix*), 20 MG ORAL TWICE A DAY, (Reported) Gabapentin* (Gabapentin*), 600 MG ORAL TWICE A DAY, (Reported) Lactobacillus Acidophilus (Probiotic), 1 EACH PO DAILY, (Reported) Letrozole (Femara), 2.5 MG ORAL DAILY, (Reported) Lidocaine (Lidocaine), 700 MG TP EVERY 24 HOURS, (Reported) Nutritional Supplement (Hi-Mark), 1,000 ML PO TID, (Reported) Pantoprazole (Pantoprazole), 40 MG ORAL DAILY, (Reported) Polyethylene Glycol 3350* (Miralax*), 17 GM ORAL DAILY, (Reported) Pravastatin Sod* (Pravastatin Sod*), 20 MG ORAL BEDTIME, (Reported) Prednisone* (Prednisone*), 10 MG ORAL DAILY, (Reported) Sevelamer Carbonate (Renvela), 800 MG ORAL THREE TIMES A DAY Sildenafil Citrate (Revatio), 20 MG ORAL THREE TIMES A DAY Scheduled PRN Acetaminophen* (Acetaminophen*), 650 MG ORAL Q4HR PRN for Fever/Headache/Mild Pain, (Reported) Ipratropium/Albuterol Sulfate (DuoNeb 0.5-3(2.5)mg/3ml), 3 ML HHN Q6HR PRN for Shortness of Breath, (Reported) Patient History Healthcare decision maker Resuscitation status Full Code Advanced Directive on File Past Medical/Surgical History Past Medical/Surgical History: (1) Atrial fibrillation, chronic (2) CHF (congestive heart failure) (3) MINA (obstructive sleep apnea) (4) Pickwickian syndrome (5) Morbid obesity (6) Acute GI bleeding (7) Anemia (8) Hematemesis Review of Systems Constitutional: Reports: weakness Eye: Reports: no symptoms ENT: Reports: no symptoms Respiratory: Reports: see HPI Cardiovascular: Reports: see HPI Gastrointestinal: Reports: see HPI Musculoskeletal: Reports: no symptoms Skin: Reports: see HPI Psychiatric: Reports: no symptoms Neurological: Reports: no symptoms Endocrine: Reports: no symptoms Hematologic/Lymphatic: Reports: anemia Physical Exam General Appearance: no apparent distress, alert, confused, morbidly obese, other - on Vent Lines, tubes and drains: trach HEENT: normocephalic, atraumatic, anicteric, mucous membranes moist Neck: supple Respiratory/Chest: no respiratory distress, decreased breath sounds Cardiovascular/Chest: irregularly irregular - A fib on tele, rate controlled Abdomen: normal bowel sounds, non tender - obese, soft Skin Exam: other - chronic lymphedema BLE Neurologic: abnormal gait, alert - confused , other - moves all extremities Musculoskeletal: atrophy - BLE Last 24 Hour Vital Signs Date Time Temp Pulse Resp B/P (MAP) Pulse Ox O2 Delivery O2 Flow Rate FiO2 10/11/16 16:00 40 10/11/16 15:33 75 14 98 Mechanical Ventilator 40 10/11/16 15:33 40 10/11/16 15:26 75 14 97 Mechanical Ventilator 40 10/11/16 15:24 75 14 40 10/11/16 12:52 77 14 40 10/11/16 12:00 79 10/11/16 12:00 97.7 72 16 103/56 98 Mechanical Ventilator 40 10/11/16 10:42 72 14 40 10/11/16 08:32 86 15 40 10/11/16 08:00 40 10/11/16 08:00 78 10/11/16 07:30 97.8 73 15 102/46 100 Mechanical Ventilator 40 10/11/16 07:30 93 20 40 10/11/16 07:30 97.8 73 15 103/46 100 Mechanical Ventilator 40 10/11/16 06:20 97.8 77 18 103/49 100 Mechanical Ventilator 40 10/11/16 05:00 76 16 40 10/11/16 05:00 84 19 100/56 99 Mechanical Ventilator 40 10/11/16 03:30 98.4 94 18 114/70 100 Mechanical Ventilator 40 10/11/16 03:03 92 14 40 10/11/16 02:10 93 14 102/54 98 Mechanical Ventilator 40 10/11/16 00:10 95 18 100 Mechanical Ventilator 40 10/11/16 00:05 98.2 109 19 129/87 98 Mechanical Ventilator 40 10/11/16 00:05 40 10/11/16 00:05 109 19 Mechanical Ventilator 40 10/11/16 00:00 114 18 96 Mechanical Ventilator 40 10/11/16 00:00 40 10/10/16 23:50 114 18 40 10/10/16 23:34 112 129/87 98 Mechanical Ventilator Intake and Output 10/11/16 10/12/16 19:00 07:00 Intake Total 435 ml Balance 435 ml Intake IV Total 435 ml # Bowel Movements 2 Laboratory Tests Test 10/11/16 00:00 10/11/16 00:40 10/11/16 00:53 10/11/16 04:50 White Blood Count 13.5 K/UL (4.8-10.8) H 9.9 K/UL (4.8-10.8) Red Blood Count 3.32 M/UL (4.20-5.40) L 2.96 M/UL (4.20-5.40) L Hemoglobin 9.5 G/DL (12.0-16.0) L 8.6 G/DL (12.0-16.0) L Hematocrit 31.2 % (37.0-47.0) L 27.6 % (37.0-47.0) L Mean Corpuscular Volume 94 FL (80-99) 93 FL (80-99) Mean Corpuscular Hemoglobin 28.5 PG (27.0-31.0) 29.1 PG (27.0-31.0) Mean Corpuscular Hemoglobin Concent 30.3 G/DL (32.0-36.0) L 31.2 G/DL (32.0-36.0) L Red Cell Distribution Width 14.3 % (11.6-14.8) 14.0 % (11.6-14.8) Platelet Count 256 K/UL (150-450) 216 K/UL (150-450) Mean Platelet Volume 5.5 FL (6.5-10.1) L 5.1 FL (6.5-10.1) L Neutrophils (%) (Auto) 72.7 % (45.0-75.0) 84.9 % (45.0-75.0) H Lymphocytes (%) (Auto) 17.1 % (20.0-45.0) L 6.1 % (20.0-45.0) L Monocytes (%) (Auto) 7.0 % (1.0-10.0) 7.3 % (1.0-10.0) Eosinophils (%) (Auto) 2.4 % (0.0-3.0) 0.7 % (0.0-3.0) Basophils (%) (Auto) 0.8 % (0.0-2.0) 0.9 % (0.0-2.0) Prothrombin Time 11.5 SEC (9.30-11.50) Prothromb Time International Ratio 1.1 (0.9-1.1) Activated Partial Thromboplast Time 26 SEC (23-33) Sodium Level 144 mEQ/L (135-145) 141 mEQ/L (135-145) Potassium Level 3.8 mEQ/L (3.4-4.9) 3.6 mEQ/L (3.4-4.9) Chloride Level 99 mEQ/L (98-107) 98 mEQ/L (98-107) Carbon Dioxide Level 33 mEQ/L (20-30) H 30 mEQ/L (20-30) Anion Gap 12 (5-15) 13 (5-15) Blood Urea Nitrogen 63 mg/dL (7-23) H 62 mg/dL (7-23) H Creatinine 2.7 mg/dL (0.5-0.9) H 2.6 mg/dL (0.5-0.9) H Estimat Glomerular Filtration Rate mL/min (>60) mL/min (>60) Glucose Level 161 mg/dL (74-106) H 133 mg/dL (74-106) H Lactic Acid Level 0.80 mmol/L (0.66-2.22) Calcium Level 9.0 mg/dL (8.6-10.2) 8.8 mg/dL (8.6-10.2) Total Bilirubin 0.5 mg/dL (0.0-1.2) 0.4 mg/dL (0.0-1.2) Aspartate Amino Transf (AST/SGOT) 14 U/L (5-40) 13 U/L (5-40) Alanine Aminotransferase (ALT/SGPT) 5 U/L (3-33) 5 U/L (3-33) Alkaline Phosphatase 79 U/L (35-104) 73 U/L (35-104) Total Creatine Kinase 61 U/L (26-140) Creatine Kinase MB < 1.5 ng/mL (< 3.8) Creatine Kinase MB Relative Index 2.4 Troponin I < 0.30 ng/mL (<=0.30) Total Protein 8.1 g/dL (6.6-8.7) 7.5 g/dL (6.6-8.7) Albumin 3.8 g/dL (3.5-5.2) 3.1 g/dL (3.5-5.2) L Globulin 4.3 g/dL 4.4 g/dL Albumin/Globulin Ratio 0.8 (1.0-2.7) L 0.7 (1.0-2.7) L Urine Color Yellow Urine Appearance Slightly cloudy Urine pH 5 (4.5-8.0) Urine Specific [place] 1.025 (1.005-1.035) Urine Protein 2+ (NEGATIVE) H Urine Glucose (UA) Negative (NEGATIVE) Urine Ketones Negative (NEGATIVE) Urine Occult Blood 1+ (NEGATIVE) H Urine Nitrite Negative (NEGATIVE) Urine Bilirubin 2+ (NEGATIVE) H Urine Ictotest Negative Urine Urobilinogen Normal MG/DL (0.0-1.0) Urine Leukocyte Esterase 1+ (NEGATIVE) H Urine RBC 0-2 /HPF (0 - 2) Urine WBC 0-2 /HPF (0 - 2) Urine Squamous Epithelial Cells Many /LPF (NONE/OCC) H Urine Amorphous Sediment Many /LPF (NONE) H Urine Bacteria Few /HPF (NONE) Arterial Blood pH 7.301 (7.350-7.450) Arterial Blood Partial Pressure CO2 66.0 mmHg (35.0-45.0) *H Arterial Blood Partial Pressure O2 124.7 mmHg (75.0-100.0) H Arterial Blood HCO3 31.8 mmol/L (22.0-26.0) H Arterial Blood Oxygen Saturation 98.1 % (92.0-98.0) H Arterial Blood Base Excess 4.3 Mike Test Positive Height (Feet): 5 Height (Inches): 6.00 Weight (Pounds): 346 Medications Current Medications Medications (Trade) Dose Ordered Sig/Kalyn Route PRN Reason Start Time Stop Time Status Last Admin Dose Admin Acetaminophen (Tylenol) 650 mg Q4H PRN ORAL fever 10/11/16 07:45 11/10/16 07:44 Al Hydroxide/Mg Hydroxide (Mylanta II) 30 ml Q6H PRN ORAL dyspepsia 10/11/16 07:45 11/10/16 07:44 Albuterol/ Ipratropium (DuoNeb 0.5-3(2.5)mg/3ml) 3 ml EVERY 8 HOURS HHN 10/11/16 14:00 10/16/16 13:59 10/11/16 15:24 Calcitriol (Rocatrol) 0.25 mcg DAILY ORAL 10/11/16 09:00 11/10/16 08:59 10/11/16 09:12 Dextrose (Dextrose 50%) STAT PRN IV Hypoglycemia 10/11/16 07:45 11/10/16 07:44 Dextrose/Sodium Chloride 1,000 ml @ 75 mls/hr [id number] IV 10/11/16 09:00 11/10/16 08:59 10/11/16 09:12 Diphenhydramine HCl (Benadryl) 25 mg Q6H PRN ORAL Itching/Pruritis 10/11/16 07:45 11/10/16 07:44 Famotidine (Pepcid I.v.) 20 mg QHS IVP 10/11/16 21:00 11/10/16 20:59 Furosemide (Lasix) 20 mg BID ORAL 10/11/16 09:00 11/10/16 08:59 10/11/16 09:12 Ondansetron HCl (Zofran) 4 mg Q6H PRN IVP Nausea & Vomiting 10/11/16 07:45 11/10/16 07:44 Polyethylene Glycol (Miralax) 17 gm HSPRN PRN ORAL Constipation 10/11/16 07:45 11/10/16 07:44 Sevelamer Carbonate (Renvela) 800 mg THREE TIMES A DAY ORAL 10/11/16 09:00 11/10/16 08:59 10/11/16 12:47 Sildenafil Citrate (Revatio) 20 mg THREE TIMES A DAY ORAL 10/11/16 09:00 11/10/16 08:59 10/11/16 12:47 Assessment/Plan Assessment/Plan ASSESSMENT acute on chronic hypercapnic respiratory failure chronic respiratory failure tracheostomy status hematemesis GI bleeding severe gastritis anemia COPD severe pulmonary HTN permanent A fib CHF hyperlipidemia CKD morbid obesity chronic lymphedema BLE PLAN OF CARE FRANCISCO vent support the [facility] care pulmonary toilet ABG in am fup with CXR GI eval last EGD in September with evidence of severe gastritis stomach biopsy: no H pylori, no evidence of metaplasia or dysplasia recurrent GI bleeding likely due to chronic a/coagulation A fib permanent , rate controlled last ECHO with pEF 60-65% and RVSP of 94, continue Sildenafil; monitor HH transfuse prn hold a/coagualtion for now probably should not resume in SNF due to recurrent GI bleeding ID consult appreciated leukocytosis resolved no clinical evidence of infection monitor and observe off abx monitor renal parameters, lytes, patient with CKD avoid nephrotoxics correct e/lytes as needed GI prophylaxis wound care nurse eval for chronic lymphedema venous Duplex ( recent in September) no evidence of DVT consider compression stocking elevate BLE case discussed and evaluated by supervising physician Rojas (Bebeto),Jaquelin MAYER Oct 11, 2016 16:43
[2016-10-11] MEDS ORDERED: 1/2 NS 1000ml IV ONE (19:58)
[2016-10-11] MEDS ORDERED: D5 1/2NS 1000ml IV ONE (19:58)
[2016-10-11] MEDS: Famotidine 20 MG/ 2ML VIAL IVP SCH (20:34)
[2016-10-12] VITALS: BP 100/50
[2016-10-12 04:00] VITALS: BP 92/48
[2016-10-12 05:14] LABS: MEAN CORPUSCULAR HEMOGLOBIN 29.1 PG (27.0-31.0); MEAN CORPUSCULAR HGB CONC 31.8 G/DL (32.0-36.0); MEAN CORPUSCULAR VOLUME 91 FL (80-99); MEAN PLATELET VOLUME 5.4 FL (6.5-10.1); PLATELET COUNT 155 K/UL (150-450); RED BLOOD COUNT 2.47 M/UL (4.20-5.40); RED CELL DISTRIBUTION WIDTH 13.8 % (11.6-14.8); WHITE BLOOD COUNT 5.8 K/UL (4.8-10.8)
[2016-10-12 05:16] LABS: INR 1.3 (0.9-1.1); PROTHROMBIN TIME 13.5 SEC (9.30-11.50)
[2016-10-12 05:31] LABS: ALANINE AMINOTRANSFERASE 5 U/L (3-33); ALBUMIN/GLOBULIN RATIO 0.6 (1.0-2.7); ANION GAP 9 (5-15); ASPARTATE AMINO TRANSFERASE 13 U/L (5-40); CALCIUM 8.1 mg/dL (8.6-10.2); CARBON DIOXIDE 30 mEQ/L (20-30); CHLORIDE 98 mEQ/L (98-107); CREATININE 2.6 mg/dL (0.5-0.9); HEMOLYSIS 3; POTASSIUM 3.4 mEQ/L (3.4-4.9); SODIUM 137 mEQ/L (135-145); TOTAL PROTEIN 5.9 g/dL (6.6-8.7)
[2016-10-12] MEDS: DuoNeb 0.5-3(2.5)mg/3ml neb HHN SCH ×3 (07:27→23:03)
[2016-10-12 08:00] VITALS: BP 122/85
--- NOTE | 2016-10-12 08:21 | General Progress Note ---
Assessment/Plan Assessment/Plan Assessment - Recurrent UGIB due to diffuse gastritis combined with anticoagulation - s/p recent endoscopy on prior admission - Anemia (GI Bleed, CRF, Chronic Dz) - Renal failure - Resp failure Recommendations - Restart PPI at BID dose - Carafate QID - lowest anticoagulation level, as feasible - monitor labs - Check and replace Iron - Resume PO diet - No plans for repeat Endoscopy, unless severe bleeding Thank you Mary Rodriguez MD Subjective Allergies: Coded Allergies: AMOXICILLIN (Verified Allergy, Mild, RASH, 09/30/16) MORPHINE (Unverified Allergy, Unknown, 09/30/16) PENICILLINS (Unverified Allergy, Unknown, 09/30/16) Objective Last 24 Hour Vital Signs Date Time Temp Pulse Resp B/P (MAP) Pulse Ox O2 Delivery O2 Flow Rate FiO2 10/12/16 08:00 40 10/12/16 08:00 97.9 85 14 122/85 100 Mechanical Ventilator 40 10/12/16 07:27 87 14 40 10/12/16 07:27 87 14 99 Mechanical Ventilator 40 10/12/16 05:30 72 14 70 10/12/16 04:00 73 10/12/16 04:00 97.3 84 14 92/48 100 Mechanical Ventilator 70 10/12/16 03:30 83 14 70 10/12/16 01:30 77 14 70 10/12/16 00:00 98.8 77 14 100/50 93 Mechanical Ventilator 70 10/12/16 00:00 69 10/12/16 00:00 70 10/11/16 22:30 80 14 70 10/11/16 21:54 68 14 97 Mechanical Ventilator 70 10/11/16 21:12 70 10/11/16 21:11 73 14 94 Mechanical Ventilator 70 10/11/16 21:02 83 14 70 10/11/16 20:00 100 10/11/16 20:00 81 10/11/16 20:00 98.2 85 14 126/58 97 Mechanical Ventilator 100 10/11/16 18:43 84 14 40 10/11/16 17:30 86 18 40 10/11/16 16:00 97.8 86 15 127/62 98 Mechanical Ventilator 40 10/11/16 16:00 40 10/11/16 16:00 65 10/11/16 15:33 75 14 98 Mechanical Ventilator 40 10/11/16 15:33 40 10/11/16 15:26 75 14 97 Mechanical Ventilator 40 10/11/16 15:24 75 14 40 10/11/16 12:52 77 14 40 10/11/16 12:00 79 10/11/16 12:00 97.7 72 16 103/56 98 Mechanical Ventilator 40 10/11/16 10:42 72 14 40 10/11/16 08:32 86 15 40 Laboratory Tests 10/12/16 03:50: White Blood Count 5.8, Red Blood Count 2.47L, Hemoglobin 7.2L, Hematocrit 22.5L , Mean Corpuscular Volume 91, Mean Corpuscular Hemoglobin 29.1, Mean Corpuscular Hemoglobin Concent 31.8L, Red Cell Distribution Width 13.8, Platelet Count 155, Mean Platelet Volume 5.4L, Neutrophils (%) (Auto) , Lymphocytes (%) (Auto) , Monocytes (%) (Auto) , Eosinophils (%) (Auto) , Basophils (%) (Auto) , Prothrombin Time 13.5H, Prothromb Time International Ratio 1.3H, Activated Partial Thromboplast Time 28, Sodium Level 137, Potassium Level 3.4, Chloride Level 98, Carbon Dioxide Level 30, Anion Gap 9, Blood Urea Nitrogen 73H, Creatinine 2.6H, Estimat Glomerular Filtration Rate , Glucose Level 119H, Calcium Level 8.1L, Total Bilirubin 0.3, Aspartate Amino Transf (AST /SGOT) 13, Alanine Aminotransferase (ALT/SGPT) 5, Alkaline Phosphatase 65, Total Protein 5.9L, Albumin 2.4L, Globulin 3.5, Albumin/Globulin Ratio 0.6L Height (Feet): 5 Height (Inches): 6.00 Weight (Pounds): 345 MARY RODRIGUEZ Oct 12, 2016 08:21
[2016-10-12] MEDS: Revatio 20mg tab ORAL SCH ×3 (08:45→17:05)
[2016-10-12] MEDS: Calcitriol 0.25mcg Cap ORAL SCH (08:46)
[2016-10-12 08:57] LABS: ABG ALLEN TEST POSITIVE; ABG BASE EXCESS 2.7; ABG PCO2 64.6 mmHg (35.0-45.0)
[2016-10-12] MEDS: Sucralfate 1gm tab ORAL SCH ×4 (09:22→22:02)
--- NOTE | 2016-10-12 10:49 | Pulmonology Progress Note ---
Assessment/Plan Problems: (1) Acute GI bleeding (2) Chronic respiratory failure (3) CHF (congestive heart failure) (4) Anemia (5) ATN (acute tubular necrosis) (6) Morbid obesity (7) Atrial fibrillation, chronic Respiratory: monitor respiratory rate, adjust FIO2, CXR Cardiac: continue to monitor HR/BP Renal: F/U I&O, keep IV fluid Infectious Disease: check cultures Gastrointestinal: continue feedings/current rate Endocrine: check TSH, check HgA1C Neurologic: PRN Ativan, PRN Morphine Affect: PRN ativan Notes Reviewed: sap project manager, cardio 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: nurses, consultants, case worker Subjective ROS Limited/Unobtainable: No Constitutional: Reports: no symptoms HEENT: Repors: no symptoms Respiratory: Reports: no symptoms Allergies: Coded Allergies: AMOXICILLIN (Verified Allergy, Mild, RASH, 09/30/16) MORPHINE (Unverified Allergy, Unknown, 09/30/16) PENICILLINS (Unverified Allergy, Unknown, 09/30/16) Objective Last 24 Hour Vital Signs Date Time Temp Pulse Resp B/P (MAP) Pulse Ox O2 Delivery O2 Flow Rate FiO2 10/12/16 09:04 96 15 40 10/12/16 08:00 40 10/12/16 08:00 82 10/12/16 08:00 97.9 85 14 122/85 100 Mechanical Ventilator 40 10/12/16 07:37 40 10/12/16 07:37 88 15 98 Mechanical Ventilator 40 10/12/16 07:27 87 14 40 10/12/16 07:27 87 14 99 Mechanical Ventilator 40 10/12/16 05:30 72 14 70 10/12/16 04:00 73 10/12/16 04:00 97.3 84 14 92/48 100 Mechanical Ventilator 70 10/12/16 03:30 83 14 70 10/12/16 01:30 77 14 70 10/12/16 00:00 98.8 77 14 100/50 93 Mechanical Ventilator 70 10/12/16 00:00 69 10/12/16 00:00 70 10/11/16 22:30 80 14 70 10/11/16 21:54 68 14 97 Mechanical Ventilator 70 10/11/16 21:12 70 10/11/16 21:11 73 14 94 Mechanical Ventilator 70 10/11/16 21:02 83 14 70 10/11/16 20:00 100 10/11/16 20:00 81 10/11/16 20:00 98.2 85 14 126/58 97 Mechanical Ventilator 100 10/11/16 18:43 84 14 40 10/11/16 17:30 86 18 40 10/11/16 16:00 97.8 86 15 127/62 98 Mechanical Ventilator 40 10/11/16 16:00 40 10/11/16 16:00 65 10/11/16 15:33 75 14 98 Mechanical Ventilator 40 10/11/16 15:33 40 10/11/16 15:26 75 14 97 Mechanical Ventilator 40 10/11/16 15:24 75 14 40 10/11/16 12:52 77 14 40 10/11/16 12:00 79 10/11/16 12:00 97.7 72 16 103/56 98 Mechanical Ventilator 40 Intake and Output 10/12/16 10/13/16 19:00 07:00 Intake Total 225 ml Balance 225 ml IV Total 225 ml General Appearance: WD/WN HEENT: normocephalic, atraumatic, status post trach Respiratory/Chest: chest wall non-tender, lungs clear Cardiovascular: normal peripheral pulses Genitourinary: normal external genitalia Extremities: no cyanosis Skin: no lesions Microbiology Date/Time Source Procedure Growth Status 10/11/16 00:00 Blood Blood Culture - Preliminary NO GROWTH AFTER 24 HOURS Resulted 10/10/16 23:45 Blood Blood Culture - Preliminary NO GROWTH AFTER 24 HOURS Resulted Laboratory Tests 10/12/16 03:50: White Blood Count 5.8, Red Blood Count 2.47L, Hemoglobin 7.2L, Hematocrit 22.5L , Mean Corpuscular Volume 91, Mean Corpuscular Hemoglobin 29.1, Mean Corpuscular Hemoglobin Concent 31.8L, Red Cell Distribution Width 13.8, Platelet Count 155, Mean Platelet Volume 5.4L, Neutrophils (%) (Auto) , Lymphocytes (%) (Auto) , Monocytes (%) (Auto) , Eosinophils (%) (Auto) , Basophils (%) (Auto) , Prothrombin Time 13.5H, Prothromb Time International Ratio 1.3H, Activated Partial Thromboplast Time 28, Sodium Level 137, Potassium Level 3.4, Chloride Level 98, Carbon Dioxide Level 30, Anion Gap 9, Blood Urea Nitrogen 73H, Creatinine 2.6H, Estimat Glomerular Filtration Rate , Glucose Level 119H, Calcium Level 8.1L, Total Bilirubin 0.3, Aspartate Amino Transf (AST /SGOT) 13, Alanine Aminotransferase (ALT/SGPT) 5, Alkaline Phosphatase 65, Total Protein 5.9L, Albumin 2.4L, Globulin 3.5, Albumin/Globulin Ratio 0.6L 10/12/16 04:00: Arterial Blood pH 7.287L, Arterial Blood Partial Pressure CO2 64.6*H, Arterial Blood Partial Pressure O2 86.2, Arterial Blood HCO3 30.2H, Arterial Blood Oxygen Saturation 94.9, Arterial Blood Base Excess 2.7, Mike Test Positive Current Medications Medications (Trade) Dose Ordered Sig/Kalyn Route PRN Reason Start Time Stop Time Status Last Admin Dose Admin Acetaminophen (Tylenol) 650 mg Q4H PRN ORAL fever 10/11/16 07:45 11/10/16 07:44 Al Hydroxide/Mg Hydroxide (Mylanta II) 30 ml Q6H PRN ORAL dyspepsia 10/11/16 07:45 11/10/16 07:44 Albuterol/ Ipratropium (DuoNeb 0.5-3(2.5)mg/3ml) 3 ml EVERY 8 HOURS HHN 10/11/16 14:00 10/16/16 13:59 10/12/16 07:27 Calcitriol (Rocatrol) 0.25 mcg DAILY ORAL 10/11/16 09:00 11/10/16 08:59 10/12/16 08:46 Dextrose (Dextrose 50%) STAT PRN IV Hypoglycemia 10/11/16 07:45 11/10/16 07:44 Dextrose/Sodium Chloride 1,000 ml @ 75 mls/hr [id number] IV 10/11/16 09:00 11/10/16 08:59 10/11/16 22:52 Diphenhydramine HCl (Benadryl) 25 mg Q6H PRN ORAL Itching/Pruritis 10/11/16 07:45 11/10/16 07:44 Famotidine (Pepcid I.v.) 20 mg QHS IVP 10/11/16 21:00 11/10/16 20:59 10/11/16 20:34 Furosemide (Lasix) 20 mg BID ORAL 10/11/16 09:00 11/10/16 08:59 10/12/16 08:46 Ondansetron HCl (Zofran) 4 mg Q6H PRN IVP Nausea & Vomiting 10/11/16 07:45 11/10/16 07:44 Pantoprazole (Protonix) 40 mg EVERY 12 HOURS ORAL 10/12/16 09:30 11/11/16 09:29 10/12/16 09:22 Polyethylene Glycol (Miralax) 17 gm HSPRN PRN ORAL Constipation 10/11/16 07:45 11/10/16 07:44 Sevelamer Carbonate (Renvela) 800 mg THREE TIMES A DAY ORAL 10/11/16 09:00 11/10/16 08:59 10/12/16 08:46 Sildenafil Citrate (Revatio) 20 mg THREE TIMES A DAY ORAL 10/11/16 09:00 11/10/16 08:59 10/12/16 08:45 Sucralfate (Carafate) 1 gm FOUR TIMES A DAY ORAL 10/12/16 09:30 11/11/16 09:29 10/12/16 09:22 ARASH MIRANDA Oct 12, 2016 10:49
[2016-10-12 12:00] VITALS: BP 119/57
[2016-10-12] MEDS: D5 1/2NS 1,000 ML IV SCH (12:34)
--- NOTE | 2016-10-12 12:50 | Diagnostic Imaging Report ---
Indication: Dyspnea Comparison: 10/10/16 A single view chest radiograph was obtained. Findings: There is interstitial edema with cardiomegaly. Tracheostomy is noted. The bones are osteopenic. Impression: Slightly worsening interstitial edema
--- NOTE | 2016-10-12 13:58 | Infectious Diseases Prog Note ---
Assessment/Plan Assessment/Plan ASSESSMENT: 1) recurrent UGIB, s/p EGD 10/04 with severe gastritis 2) sepsis, sp. no evidence of infection. s/p Levofloxacin 1dose in ER, 10oct2016 3) borderline leukocytosis, resolved. stress response. 4) afebrile 5) BLE lymphedema. typical hypertrophic skin, cobblestoning, overlying scale and xerosis. looks less erythematous than last admission. no evidence of secondary skin/soft tissue infection. 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 no evidence of UTI. 14) recent MRSA screen negative PLAN: --Monitor off abx --f/u blood cx obtained 23:45 on 10oct2016 so far ngtd at >24 hrs. --elevate BLE --consider compression stockings to BLE --monitor CBC --monitor temp, hemodynamics --f/u urine cx --trach care, asp precautions --s/p GI eval for UGIB, recurrent --continue contact isolation Covering for Dr. Milan, please call me with questions, Subjective Allergies: Coded Allergies: AMOXICILLIN (Verified Allergy, Mild, RASH, 09/30/16) MORPHINE (Unverified Allergy, Unknown, 09/30/16) PENICILLINS (Unverified Allergy, Unknown, 09/30/16) Objective Vital Signs Last 24 Hour Vital Signs Date Time Temp Pulse Resp B/P (MAP) Pulse Ox O2 Delivery O2 Flow Rate FiO2 10/12/16 13:22 99 14 40 10/12/16 12:00 40 10/12/16 12:00 89 10/12/16 12:00 98.1 107 14 119/57 96 Mechanical Ventilator 40 10/12/16 11:10 108 15 40 10/12/16 09:04 96 15 40 10/12/16 08:00 40 10/12/16 08:00 82 10/12/16 08:00 97.9 85 14 122/85 100 Mechanical Ventilator 40 10/12/16 07:37 40 10/12/16 07:37 88 15 98 Mechanical Ventilator 40 10/12/16 07:27 87 14 40 10/12/16 07:27 87 14 99 Mechanical Ventilator 40 10/12/16 05:30 72 14 70 10/12/16 04:00 73 10/12/16 04:00 97.3 84 14 92/48 100 Mechanical Ventilator 70 10/12/16 03:30 83 14 70 10/12/16 01:30 77 14 70 10/12/16 00:00 98.8 77 14 100/50 93 Mechanical Ventilator 70 10/12/16 00:00 69 10/12/16 00:00 70 10/11/16 22:30 80 14 70 10/11/16 21:54 68 14 97 Mechanical Ventilator 70 10/11/16 21:12 70 10/11/16 21:11 73 14 94 Mechanical Ventilator 70 10/11/16 21:02 83 14 70 10/11/16 20:00 100 10/11/16 20:00 81 10/11/16 20:00 98.2 85 14 126/58 97 Mechanical Ventilator 100 10/11/16 18:43 84 14 40 10/11/16 17:30 86 18 40 10/11/16 16:00 97.8 86 15 127/62 98 Mechanical Ventilator 40 10/11/16 16:00 40 10/11/16 16:00 65 10/11/16 15:33 75 14 98 Mechanical Ventilator 40 10/11/16 15:33 40 10/11/16 15:26 75 14 97 Mechanical Ventilator 40 10/11/16 15:24 75 14 40 Height (Feet): 5 Height (Inches): 6.00 Weight (Pounds): 345 Objective GEN: trach, on vent, full vent support, elevated peak pressures, non toxic appearing HEENT: Mild pale conjunctiva. oral mucosa dry, pharynx w/o exudate or effusion. No icterus. Head normocephalic, neck supple. neck thick. no cellulitis. no NGT in place NECK: No cervical LAD CHEST: scattered rhonchi, decreased breast sounds at base HEART: S1 and S2, no murmurs, no rubs. ABDOMEN: soft, obese, non tender, non distended, normoactive bowel sounds. EXTREMITIES: No cyanosis, no clubbing, has chronic ble lymphedema. circumferential erythema, cobblestoning of skin, no skin tears, + xerosis, hyperkeratotic. no onychomycosis. NEUROLOGIC: Awake, alert, no focal neurologic motor deficits. : no external lesions LYMPH: nl LAD RECTAL: deferred. Microbiology Date/Time Source Procedure Growth Status 10/11/16 00:00 Blood Blood Culture - Preliminary NO GROWTH AFTER 24 HOURS Resulted 10/10/16 23:45 Blood Blood Culture - Preliminary NO GROWTH AFTER 24 HOURS Resulted Laboratory Tests Test 10/12/16 03:50 10/12/16 04:00 White Blood Count 5.8 K/UL (4.8-10.8) Red Blood Count 2.47 M/UL (4.20-5.40) L Hemoglobin 7.2 G/DL (12.0-16.0) L Hematocrit 22.5 % (37.0-47.0) L Mean Corpuscular Volume 91 FL (80-99) Mean Corpuscular Hemoglobin 29.1 PG (27.0-31.0) Mean Corpuscular Hemoglobin Concent 31.8 G/DL (32.0-36.0) L Red Cell Distribution Width 13.8 % (11.6-14.8) Platelet Count 155 K/UL (150-450) Mean Platelet Volume 5.4 FL (6.5-10.1) L Neutrophils (%) (Auto) % (45.0-75.0) Lymphocytes (%) (Auto) % (20.0-45.0) Monocytes (%) (Auto) % (1.0-10.0) Eosinophils (%) (Auto) % (0.0-3.0) Basophils (%) (Auto) % (0.0-2.0) Prothrombin Time 13.5 SEC (9.30-11.50) H Prothromb Time International Ratio 1.3 (0.9-1.1) H Activated Partial Thromboplast Time 28 SEC (23-33) Sodium Level 137 mEQ/L (135-145) Potassium Level 3.4 mEQ/L (3.4-4.9) Chloride Level 98 mEQ/L (98-107) Carbon Dioxide Level 30 mEQ/L (20-30) Anion Gap 9 (5-15) Blood Urea Nitrogen 73 mg/dL (7-23) H Creatinine 2.6 mg/dL (0.5-0.9) H Estimat Glomerular Filtration Rate mL/min (>60) Glucose Level 119 mg/dL (74-106) H Calcium Level 8.1 mg/dL (8.6-10.2) L Total Bilirubin 0.3 mg/dL (0.0-1.2) Aspartate Amino Transf (AST/SGOT) 13 U/L (5-40) Alanine Aminotransferase (ALT/SGPT) 5 U/L (3-33) Alkaline Phosphatase 65 U/L (35-104) Total Protein 5.9 g/dL (6.6-8.7) L Albumin 2.4 g/dL (3.5-5.2) L Globulin 3.5 g/dL Albumin/Globulin Ratio 0.6 (1.0-2.7) L Arterial Blood pH 7.287 (7.350-7.450) Arterial Blood Partial Pressure CO2 64.6 mmHg (35.0-45.0) *H Arterial Blood Partial Pressure O2 86.2 mmHg (75.0-100.0) Arterial Blood HCO3 30.2 mmol/L (22.0-26.0) H Arterial Blood Oxygen Saturation 94.9 % (92.0-98.0) Arterial Blood Base Excess 2.7 Mike Test Positive Patient : YUVAL RIVERA Referring Physician: Jaquelin Xie (Vanchtein) POWER ELECTRONICS RESEARCH ENGINEER ID Number: [id number] Service Date: 10/12/16 : 1940 Report Date: 10/12/16 Gender: F Accession No.: [id number] Location: 2W Procedure: XRAY Chest 1v Indication: Dyspnea Comparison: 10/10/16 A single view chest radiograph was obtained. Findings: There is interstitial edema with cardiomegaly. Tracheostomy is noted. The bones are osteopenic. Impression: Slightly worsening interstitial edema Current Medications Medications (Trade) Dose Ordered Sig/Kalyn Route PRN Reason Start Time Stop Time Status Last Admin Dose Admin Acetaminophen (Tylenol) 650 mg Q4H PRN ORAL fever 10/11/16 07:45 11/10/16 07:44 Al Hydroxide/Mg Hydroxide (Mylanta II) 30 ml Q6H PRN ORAL dyspepsia 10/11/16 07:45 11/10/16 07:44 Albuterol/ Ipratropium (DuoNeb 0.5-3(2.5)mg/3ml) 3 ml EVERY 8 HOURS HHN 10/11/16 14:00 10/16/16 13:59 10/12/16 07:27 Calcitriol (Rocatrol) 0.25 mcg DAILY ORAL 10/11/16 09:00 11/10/16 08:59 10/12/16 08:46 Dextrose (Dextrose 50%) STAT PRN IV Hypoglycemia 10/11/16 07:45 11/10/16 07:44 Dextrose/Sodium Chloride 1,000 ml @ 75 mls/hr [id number] IV 10/11/16 09:00 11/10/16 08:59 10/12/16 12:34 Diphenhydramine HCl (Benadryl) 25 mg Q6H PRN ORAL Itching/Pruritis 10/11/16 07:45 11/10/16 07:44 Famotidine (Pepcid I.v.) 20 mg QHS IVP 10/11/16 21:00 11/10/16 20:59 10/11/16 20:34 Furosemide (Lasix) 20 mg BID ORAL 10/11/16 09:00 11/10/16 08:59 10/12/16 08:46 Ondansetron HCl (Zofran) 4 mg Q6H PRN IVP Nausea & Vomiting 10/11/16 07:45 11/10/16 07:44 Pantoprazole (Protonix) 40 mg EVERY 12 HOURS ORAL 10/12/16 09:30 11/11/16 09:29 10/12/16 09:22 Polyethylene Glycol (Miralax) 17 gm HSPRN PRN ORAL Constipation 10/11/16 07:45 11/10/16 07:44 Sevelamer Carbonate (Renvela) 800 mg THREE TIMES A DAY ORAL 10/11/16 09:00 11/10/16 08:59 10/12/16 12:34 Sildenafil Citrate (Revatio) 20 mg THREE TIMES A DAY ORAL 10/11/16 09:00 11/10/16 08:59 10/12/16 12:34 Sucralfate (Carafate) 1 gm FOUR TIMES A DAY ORAL 10/12/16 09:30 11/11/16 09:29 10/12/16 12:35 Radhames Canchola M.D. Oct 12, 2016 13:58
[2016-10-12 16:00] VITALS: BP 99/55
--- NOTE | 2016-10-12 16:58 | Consultation ---
Angeline Swenson NP 10/12/16 1658: Consult Note Assessment/Plan [id number] Manny Nolan MD 10/12/16 2018: Consult Note Assessment/Plan The patient was seen and examined at bedside and all new and available data was reviewed in the patients chart. I agree with the above findings, impression and plan. (Patient seen earlier today. Signature stamp does not reflect patient encounter time.). -MD Leela Cardona Jacqueline Robles NP Oct 12, 2016 16:58 Manny Nolan MD Oct 12, 2016 20:18
[2016-10-12] MEDS: Eucerin Cream 15gm TOPIC SCH (17:20)
[2016-10-12 20:16] VITALS: BP 115/82
[2016-10-12] MEDS: Famotidine 20 MG/ 2ML VIAL IVP SCH (22:02)
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
[2016-10-13 00:22] VITALS: BP 122/98
--- NOTE | 2016-10-13 02:00 | HX and Phyl Repo 2 Sig ---
DATE OF ADMISSION: 10/11/2016 HISTORY OF PRESENT ILLNESS: The patient is a 76-year-old female, who has history of chronic respiratory failure and was recently admitted to [facility] and was discharged on 10/05/2016. During that admission, the patient had respiratory failure and underwent tracheostomy. She also had an esophagogastroduodenoscopy done with findings of severe gastritis. She was then discharged to [facility] and again was taken back to [facility] for complaints of respiratory distress and coffee-ground vomiting. Per EMS report, O2 was on 70%. On evaluation at ED, the patient was hooked on ventilator. Chest x-ray showed no consolidation, no cardiopulmonary disease, but with presence of cardiomegaly. EKG was in atrial fibrillation. She was admitted to [facility]. PAST MEDICAL HISTORY: Chronic respiratory failure on trach and vent, chronic obstructive pulmonary disease, morbid obesity, congestive heart failure, diabetes mellitus, atrial fibrillation, and pulmonary hypertension. ALLERGIES: She has allergies to penicillin, morphine, and amoxicillin. PAST SURGICAL HISTORY: Status post right breast lumpectomy. SOCIAL HISTORY: The patient is a resident of [facility]. She has a partner Mr. Zavala who is involved in the patient's care. She has a POLST that states Full Code. MEDICATIONS: From longterm includes acetaminophen 325 mg p.r.n., apixaban 2.5 mg b.i.d., Colace 100 mg b.i.d., Florastor 1 mg b.i.d., gabapentin 600 mg b.i.d., Lasix 20 mg b.i.d., letrozole 2.5 mg one tab daily, pantoprazole 20 mg daily, pravastatin 20 mg daily, Jessi-Barbara one tablet daily, Sevelamer one tablet with meals and sildenafil citrate 20 mg t.i.d. REVIEW OF SYSTEMS: Unable. PHYSICAL EXAMINATION: GENERAL APPEARANCE: The patient is awake, follows commands, aphasic but responsive. HEENT: Normocephalic and atraumatic. Tracheostomy hooked on vent. RESPIRATORY: The patient had decreased breath sounds bilaterally with rhonchi more on the right. CARDIOVASCULAR: Irregularly irregular. ABDOMEN: Soft, nontender, nondistended, and flabby. Positive bowel sounds. GENITOURINARY: The patient has an indwelling Rowland catheter. SKIN: The patient has discolorations on both right and left upper extremity. Both lower extremities are edematous. DIAGNOSTIC DATA: On admission WBC 13.5, hemoglobin 9.5, hematocrit 31.2, and platelet is 256,000. Sodium 144, potassium 3.8, chloride 99, BUN 63, creatinine 2.7, and glucose 161. Troponin was negative. A pH 7.3, CO2 66, bicarbonate 31 with 98% oxygen saturation. Chest x-ray showed worsening interstitial edema. ASSESSMENT AND PLAN: 1. Acute on chronic respiratory failure. Continue ventilator. Dr. Rene, seed district sales manager, check serial chest x-ray, aspiration precaution. 2. Gastrointestinal bleed. The patient had an episode of hematemesis prior to coming in. Monitor hemoglobin and hematocrit. The patient was seen by Dr. Rodriguez and underwent endoscopy prior admission. No plans for repeat endoscopy at this time. Continue with Carafate and PPI. We will advance diet per gastrointestinal recommendation. 3. Morbid obesity. 4. Atrial fibrillation. Continue on monitored floor. Apixaban has been discontinued. 5. Dysphagia. The patient is tracheostomy status. We will start on clear liquids for now. Advance as tolerated with goal of pureed diet. Speech therapy evaluation. 6. Bilateral lower extremity lymphedema. No open wounds noted. Continue with skin care. 7. Chronic kidney disease. Continue to monitor renal function. 8. Acute anemia. Hemoglobin today dropped to 7.2. She was given one unit packed red blood cell blood transfusion. Monitor for bleeding. 9. Anemia secondary to chronic disease. 10. Acute on chronic renal failure. Above findings and plans were discussed with supervising physician . Manny Nolan M.D. Angeline Swenson N.P. DR: KELSEA JOB#: [id number] CC: LOBO
[2016-10-13] MEDS: D5 1/2NS 1,000 ML IV SCH ×2 (02:09→12:29)
[2016-10-13 04:00] VITALS: BP 111/36
[2016-10-13 04:56] LABS: MEAN CORPUSCULAR HEMOGLOBIN 28.5 PG (27.0-31.0); MEAN CORPUSCULAR HGB CONC 31.3 G/DL (32.0-36.0); MEAN CORPUSCULAR VOLUME 91 FL (80-99); MEAN PLATELET VOLUME 5.4 FL (6.5-10.1); PLATELET COUNT 168 K/UL (150-450); RED BLOOD COUNT 2.63 M/UL (4.20-5.40); RED CELL DISTRIBUTION WIDTH 13.8 % (11.6-14.8); WHITE BLOOD COUNT 5.6 K/UL (4.8-10.8)
[2016-10-13 05:00] LABS: INR 1.2 (0.9-1.1); PROTHROMBIN TIME 12.7 SEC (9.30-11.50)
[2016-10-13 05:55] LABS: ALANINE AMINOTRANSFERASE 5 U/L (3-33); ALBUMIN/GLOBULIN RATIO 0.7 (1.0-2.7); ANION GAP 12 (5-15); ASPARTATE AMINO TRANSFERASE 10 U/L (5-40); CALCIUM 8.3 mg/dL (8.6-10.2); CARBON DIOXIDE 28 mEQ/L (20-30); CHLORIDE 98 mEQ/L (98-107); HEMOLYSIS 1; MAGNESIUM 1.7 mg/dL (1.7-2.5); PHOSPHORUS 3.8 mg/dL (2.5-4.8); POTASSIUM 3.5 mEQ/L (3.4-4.9); SODIUM 138 mEQ/L (135-145); TOTAL PROTEIN 5.9 g/dL (6.6-8.7)
[2016-10-13] MEDS: DuoNeb 0.5-3(2.5)mg/3ml neb HHN SCH ×3 (07:11→22:53)
[2016-10-13 08:00] VITALS: BP 118/68
[2016-10-13] MEDS: Revatio 20mg tab ORAL SCH ×3 (08:11→17:15)
[2016-10-13] MEDS: Eucerin Cream 15gm TOPIC SCH ×2 (08:11→17:15)
[2016-10-13] MEDS: Calcitriol 0.25mcg Cap ORAL SCH (08:11)
[2016-10-13] MEDS: Sucralfate 1gm tab ORAL SCH ×4 (08:11→21:26)
[2016-10-13 09:41] LABS: BAND NEUTROPHILS % (MANUAL) 1 % (0-8); BASOPHILS % (MANUAL) 0 % (0-2); EOSINOPHILS % (MANUAL) 3 % (0-3); HYPOCHROMASIA 1+; LYMPHOCYTES % (MANUAL) 21 % (20-45); NEUTROPHILS % (MANUAL) 73 % (45-75); PLATELET ESTIMATE ADEQUATE; PLATELET MORPHOLOGY NORMAL; TOTAL CELLS COUNTED 100
--- NOTE | 2016-10-13 11:50 | Pulmonology Progress Note ---
Assessment/Plan Problems: (1) Acute GI bleeding (2) Chronic respiratory failure (3) CHF (congestive heart failure) (4) Anemia (5) ATN (acute tubular necrosis) (6) Morbid obesity (7) Atrial fibrillation, chronic Assessment/Plan prbc prn f/u GI recommendation f/u bun/creatinine decrease IV fluids check h/h all notes reviewed. Subjective ROS Limited/Unobtainable: No Constitutional: Reports: no symptoms HEENT: Repors: no symptoms Respiratory: Reports: no symptoms Allergies: Coded Allergies: AMOXICILLIN (Verified Allergy, Mild, RASH, 09/30/16) MORPHINE (Unverified Allergy, Unknown, 09/30/16) PENICILLINS (Unverified Allergy, Unknown, 09/30/16) Objective Last 24 Hour Vital Signs Date Time Temp Pulse Resp B/P (MAP) Pulse Ox O2 Delivery O2 Flow Rate FiO2 10/13/16 08:49 79 14 35 10/13/16 08:00 97.0 84 19 118/68 99 Mechanical Ventilator 10/13/16 08:00 91 10/13/16 08:00 35 10/13/16 07:21 67 14 100 Mechanical Ventilator 35 10/13/16 07:13 66 14 35 10/13/16 07:12 66 14 100 Mechanical Ventilator 35 10/13/16 07:12 35 10/13/16 05:10 93 14 40 10/13/16 04:00 74 10/13/16 04:00 40 10/13/16 04:00 97.7 81 19 111/36 97 Mechanical Ventilator 10/13/16 03:11 68 14 40 10/13/16 01:08 80 14 40 10/13/16 00:22 97.5 68 19 122/98 97 Mechanical Ventilator 10/13/16 00:00 40 10/13/16 00:00 67 10/12/16 23:13 88 14 100 Mechanical Ventilator 40 10/12/16 23:03 81 14 40 10/12/16 23:03 81 14 100 Mechanical Ventilator 40 10/12/16 23:03 40 10/12/16 21:18 86 14 40 10/12/16 20:16 97.9 99 18 115/82 95 Mechanical Ventilator 10/12/16 20:00 40 10/12/16 20:00 99 10/12/16 18:59 93 15 40 10/12/16 17:13 78 14 40 10/12/16 16:00 98.2 85 14 99/55 99 Mechanical Ventilator 40 10/12/16 16:00 40 10/12/16 16:00 77 10/12/16 15:16 97 14 98 Mechanical Ventilator 40 10/12/16 15:16 40 10/12/16 15:05 88 14 98 Mechanical Ventilator 40 10/12/16 14:50 80 16 40 10/12/16 12:54 77 14 40 10/12/16 12:00 40 10/12/16 12:00 89 10/12/16 12:00 98.1 107 14 119/57 96 Mechanical Ventilator 40 Intake and Output 10/13/16 10/14/16 19:00 07:00 Intake Total 300 ml Balance 300 ml IV Total 300 ml General Appearance: WD/WN HEENT: normocephalic, atraumatic Respiratory/Chest: chest wall non-tender, lungs clear Breasts: no masses Cardiovascular: normal peripheral pulses, normal rate Abdomen: normal bowel sounds, soft, non tender Genitourinary: normal external genitalia Extremities: no cyanosis Skin: no rash, no lesions Neurologic/Psychiatric: cook station II-XII grossly normal Lymphatic: no neck adenopathy Microbiology Date/Time Source Procedure Growth Status 10/11/16 00:00 Blood Blood Culture - Preliminary NO GROWTH AFTER 48 HOURS Resulted 10/10/16 23:45 Blood Blood Culture - Preliminary NO GROWTH AFTER 48 HOURS Resulted 10/11/16 02:00 Nasal Nares MRSA Culture - Final NO METHICILLIN RESISTANT STAPH AUREUS... Complete Laboratory Tests 10/13/16 03:25: White Blood Count 5.6, Red Blood Count 2.63L, Hemoglobin 7.5L, Hematocrit 24.0L , Mean Corpuscular Volume 91, Mean Corpuscular Hemoglobin 28.5, Mean Corpuscular Hemoglobin Concent 31.3L, Red Cell Distribution Width 13.8, Platelet Count 168, Mean Platelet Volume 5.4L, Neutrophils (%) (Auto) , Lymphocytes (%) (Auto) , Monocytes (%) (Auto) , Eosinophils (%) (Auto) , Basophils (%) (Auto) , Differential Total Cells Counted 100, Neutrophils % ( Manual) 73, Lymphocytes % (Manual) 21, Monocytes % (Manual) 2, Eosinophils % ( Manual) 3, Basophils % (Manual) 0, Band Neutrophils 1, Platelet Estimate Adequate, Platelet Morphology Normal, Hypochromasia 1+, Prothrombin Time 12.7H, Prothromb Time International Ratio 1.2H, Activated Partial Thromboplast Time 29 , Sodium Level 138, Potassium Level 3.5, Chloride Level 98, Carbon Dioxide Level 28, Anion Gap 12, Blood Urea Nitrogen 69H, Creatinine 3.0H, Estimat Glomerular Filtration Rate , Glucose Level 127H, Calcium Level 8.3L, Phosphorus Level 3.8, Magnesium Level 1.7, Total Bilirubin 0.3, Aspartate Amino Transf (AST /SGOT) 10, Alanine Aminotransferase (ALT/SGPT) 5, Alkaline Phosphatase 61, Total Protein 5.9L, Albumin 2.5L, Globulin 3.4, Albumin/Globulin Ratio 0.7L Current Medications Medications (Trade) Dose Ordered Sig/Kalyn Route PRN Reason Start Time Stop Time Status Last Admin Dose Admin Acetaminophen (Tylenol) 650 mg Q4H PRN ORAL fever 10/11/16 07:45 11/10/16 07:44 Al Hydroxide/Mg Hydroxide (Mylanta II) 30 ml Q6H PRN ORAL dyspepsia 10/11/16 07:45 11/10/16 07:44 Albuterol/ Ipratropium (DuoNeb 0.5-3(2.5)mg/3ml) 3 ml Q8HRT HHN 10/13/16 15:00 10/18/16 14:59 Calcitriol (Rocatrol) 0.25 mcg DAILY ORAL 10/11/16 09:00 11/10/16 08:59 10/13/16 08:11 Dextrose (Dextrose 50%) STAT PRN IV Hypoglycemia 10/11/16 07:45 11/10/16 07:44 Dextrose/Sodium Chloride 1,000 ml @ 75 mls/hr [id number] IV 10/11/16 09:00 11/10/16 08:59 10/13/16 02:09 Diphenhydramine HCl (Benadryl) 25 mg Q6H PRN ORAL Itching/Pruritis 10/11/16 07:45 11/10/16 07:44 Famotidine (Pepcid I.v.) 20 mg QHS IVP 10/11/16 21:00 11/10/16 20:59 10/12/16 22:02 Furosemide (Lasix) 20 mg BID ORAL 10/11/16 09:00 11/10/16 08:59 10/13/16 08:11 Multi-Ingredient Ointment (Eucerin) 1 applic BID TOPIC 10/12/16 18:00 10/17/16 17:59 10/13/16 08:11 Ondansetron HCl (Zofran) 4 mg Q6H PRN IVP Nausea & Vomiting 10/11/16 07:45 11/10/16 07:44 Pantoprazole (Protonix) 40 mg EVERY 12 HOURS ORAL 10/12/16 09:30 11/11/16 09:29 10/13/16 08:11 Polyethylene Glycol (Miralax) 17 gm HSPRN PRN ORAL Constipation 10/11/16 07:45 11/10/16 07:44 Sevelamer Carbonate (Renvela) 800 mg THREE TIMES A DAY ORAL 10/11/16 09:00 11/10/16 08:59 10/13/16 08:11 Sildenafil Citrate (Revatio) 20 mg THREE TIMES A DAY ORAL 10/11/16 09:00 11/10/16 08:59 10/13/16 08:11 Sucralfate (Carafate) 1 gm FOUR TIMES A DAY ORAL 10/12/16 09:30 11/11/16 09:29 10/13/16 08:11 ARASH MIRANDA Oct 13, 2016 11:49
[2016-10-13 12:00] VITALS: BP 125/71
--- NOTE | 2016-10-13 14:26 | Consultation ---
Consult Note Consult Note This is a morbidly obese 76-year-old female coming from care home. She has a history of COPD with respiratory failure on a tracheostomy. She also history of atrial fibrillation on anticoagulations. She presents with chief complaint of coffee-ground emesis and as respiratory distress. Per EMS, oxygenation on room air was in the 70th percentile. They took her up to the ventilator and brought her here. Patient complained of cough. No chest pain. Has nausea and vomiting. No diarrhea. Similar presentation in the past. Allergies: Coded Allergies: AMOXICILLIN (Verified Allergy, Mild, RASH, 09/30/16) MORPHINE (Unverified Allergy, Unknown, 09/30/16) PENICILLINS (Unverified Allergy, Unknown, 09/30/16) Assessment/Plan CKD- and acute renal failure Acute respiratory failure s/p Trach Obese COPD , CHF, Diastolic MINA UTI Anemia GI Bleed, GI bleeding At Fib Pulm HTN Low B12 Plan; Trach 09/20- adjust meds 24 h Urine CrCl and Protein- ordered ( CrCl 12) Optimize cardiac status- Monitor renal parameters and lytes- Avoid nephrotoxics B12 SQ- PO Folate COURTNEY LOPEZ Oct 13, 2016 14:26
--- NOTE | 2016-10-13 15:17 | Infectious Diseases Prog Note ---
Assessment/Plan Assessment/Plan ASSESSMENT: 1) recurrent UGIB, s/p EGD 10/04 with severe gastritis s/p 1u PRBC early 10/13/16. 2) sepsis, sp. no evidence of infection. s/p Levofloxacin 1dose in ER, [id number] 3) borderline leukocytosis, resolved. stress response. 4) afebrile 5) BLE lymphedema. typical hypertrophic skin, cobblestoning, overlying scale and xerosis. looks less erythematous than last admission. no evidence of secondary skin/soft tissue infection. 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 no evidence of UTI now. 12) remote h/o VRE UTI April2016 13) u/a negative for pyuria. no evidence of UTI. 14) recent MRSA screen negative PLAN: --Monitor off abx --f/u blood cx x2 setsobtained 23:45 on [id number] so far ngtd at >48 hrs. --elevate BLE --continue sequential compression to BLE. looks a bit less edematous today, and patient reports resolution of her pain that had been secondary to tense edema. --monitor CBC --monitor temp, hemodynamics --trach care, asp precautions --s/p GI eval for UGIB, recurrent --continue contact isolation for h/o VRE and ESBL --recommend compression stockings as outpatient as she tolerates. Covering for Dr. Milan. Subjective ROS Limited/Unobtainable: Yes Allergies: Coded Allergies: AMOXICILLIN (Verified Allergy, Mild, RASH, 09/30/16) MORPHINE (Unverified Allergy, Unknown, 09/30/16) PENICILLINS (Unverified Allergy, Unknown, 09/30/16) Objective Vital Signs Last 24 Hour Vital Signs Date Time Temp Pulse Resp B/P (MAP) Pulse Ox O2 Delivery O2 Flow Rate FiO2 10/13/16 15:10 35 10/13/16 15:10 81 14 100 Mechanical Ventilator 35 10/13/16 15:07 83 16 35 10/13/16 12:43 77 14 35 10/13/16 12:00 97.5 81 18 125/71 98 Mechanical Ventilator 10/13/16 12:00 35 10/13/16 11:55 78 10/13/16 11:40 81 10/13/16 11:20 79 14 35 10/13/16 08:49 79 14 35 10/13/16 08:00 97.0 84 19 118/68 99 Mechanical Ventilator 10/13/16 08:00 91 10/13/16 08:00 35 10/13/16 07:21 67 14 100 Mechanical Ventilator 35 10/13/16 07:13 66 14 35 10/13/16 07:12 66 14 100 Mechanical Ventilator 35 10/13/16 07:12 35 10/13/16 05:10 93 14 40 10/13/16 04:00 74 10/13/16 04:00 40 10/13/16 04:00 97.7 81 19 111/36 97 Mechanical Ventilator 10/13/16 03:11 68 14 40 10/13/16 01:08 80 14 40 10/13/16 00:22 97.5 68 19 122/98 97 Mechanical Ventilator 10/13/16 00:00 40 10/13/16 00:00 67 10/12/16 23:13 88 14 100 Mechanical Ventilator 40 10/12/16 23:03 81 14 40 10/12/16 23:03 81 14 100 Mechanical Ventilator 40 10/12/16 23:03 40 10/12/16 21:18 86 14 40 10/12/16 20:16 97.9 99 18 115/82 95 Mechanical Ventilator 10/12/16 20:00 40 10/12/16 20:00 99 10/12/16 18:59 93 15 40 10/12/16 17:13 78 14 40 10/12/16 16:00 98.2 85 14 99/55 99 Mechanical Ventilator 40 10/12/16 16:00 40 10/12/16 16:00 77 10/12/16 15:16 97 14 98 Mechanical Ventilator 40 10/12/16 15:16 40 Height (Feet): 5 Height (Inches): 6.00 Weight (Pounds): 345 Objective GEN: trach, on vent, full vent support, elevated peak pressures, non toxic appearing HEENT: Mild pale conjunctiva. oral mucosa dry, pharynx w/o exudate or effusion. No icterus. Head normocephalic, neck supple. neck thick. no cellulitis. no NGT in place NECK: No cervical LAD CHEST: scattered rhonchi, decreased breath sounds at base HEART: S1 and S2, no murmurs, no rubs. ABDOMEN: soft, obese, non tender, non distended, normoactive bowel sounds. EXTREMITIES: No cyanosis, no clubbing, has chronic ble lymphedema. circumferential erythema, cobblestoning of skin, no skin tears, + xerosis, hyperkeratotic. no onychomycosis. L anterior thigh blister, w/o cellulitis, does not contain purulent fluid. SCDs in place. NEUROLOGIC: Awake, alert, no focal neurologic motor deficits. : no external lesions LYMPH: nl LAD RECTAL: deferred. Microbiology Date/Time Source Procedure Growth Status 10/11/16 00:00 Blood Blood Culture - Preliminary NO GROWTH AFTER 48 HOURS Resulted 10/10/16 23:45 Blood Blood Culture - Preliminary NO GROWTH AFTER 48 HOURS Resulted 10/11/16 02:00 Nasal Nares MRSA Culture - Final NO METHICILLIN RESISTANT STAPH AUREUS... Complete Laboratory Tests Test 10/13/16 03:25 White Blood Count 5.6 K/UL (4.8-10.8) Red Blood Count 2.63 M/UL (4.20-5.40) L Hemoglobin 7.5 G/DL (12.0-16.0) L Hematocrit 24.0 % (37.0-47.0) L Mean Corpuscular Volume 91 FL (80-99) Mean Corpuscular Hemoglobin 28.5 PG (27.0-31.0) Mean Corpuscular Hemoglobin Concent 31.3 G/DL (32.0-36.0) L Red Cell Distribution Width 13.8 % (11.6-14.8) Platelet Count 168 K/UL (150-450) Mean Platelet Volume 5.4 FL (6.5-10.1) L Neutrophils (%) (Auto) % (45.0-75.0) Lymphocytes (%) (Auto) % (20.0-45.0) Monocytes (%) (Auto) % (1.0-10.0) Eosinophils (%) (Auto) % (0.0-3.0) Basophils (%) (Auto) % (0.0-2.0) Differential Total Cells Counted 100 Neutrophils % (Manual) 73 % (45-75) Lymphocytes % (Manual) 21 % (20-45) Monocytes % (Manual) 2 % (1-10) Eosinophils % (Manual) 3 % (0-3) Basophils % (Manual) 0 % (0-2) Band Neutrophils 1 % (0-8) Platelet Estimate Adequate Platelet Morphology Normal Hypochromasia 1+ Prothrombin Time 12.7 SEC (9.30-11.50) H Prothromb Time International Ratio 1.2 (0.9-1.1) H Activated Partial Thromboplast Time 29 SEC (23-33) Sodium Level 138 mEQ/L (135-145) Potassium Level 3.5 mEQ/L (3.4-4.9) Chloride Level 98 mEQ/L (98-107) Carbon Dioxide Level 28 mEQ/L (20-30) Anion Gap 12 (5-15) Blood Urea Nitrogen 69 mg/dL (7-23) H Creatinine 3.0 mg/dL (0.5-0.9) H Estimat Glomerular Filtration Rate mL/min (>60) Glucose Level 127 mg/dL (74-106) H Calcium Level 8.3 mg/dL (8.6-10.2) L Phosphorus Level 3.8 mg/dL (2.5-4.8) Magnesium Level 1.7 mg/dL (1.7-2.5) Total Bilirubin 0.3 mg/dL (0.0-1.2) Aspartate Amino Transf (AST/SGOT) 10 U/L (5-40) Alanine Aminotransferase (ALT/SGPT) 5 U/L (3-33) Alkaline Phosphatase 61 U/L (35-104) Total Protein 5.9 g/dL (6.6-8.7) L Albumin 2.5 g/dL (3.5-5.2) L Globulin 3.4 g/dL Albumin/Globulin Ratio 0.7 (1.0-2.7) L Current Medications Medications (Trade) Dose Ordered Sig/Kalyn Route PRN Reason Start Time Stop Time Status Last Admin Dose Admin Acetaminophen (Tylenol) 650 mg Q4H PRN ORAL fever 10/11/16 07:45 11/10/16 07:44 Al Hydroxide/Mg Hydroxide (Mylanta II) 30 ml Q6H PRN ORAL dyspepsia 10/11/16 07:45 11/10/16 07:44 Albuterol/ Ipratropium (DuoNeb 0.5-3(2.5)mg/3ml) 3 ml Q8HRT HHN 10/13/16 15:00 10/18/16 14:59 Calcitriol (Rocatrol) 0.25 mcg DAILY ORAL 10/11/16 09:00 11/10/16 08:59 10/13/16 08:11 Dextrose (Dextrose 50%) STAT PRN IV Hypoglycemia 10/11/16 07:45 11/10/16 07:44 Dextrose/Sodium Chloride 1,000 ml @ 50 mls/hr Q20H IV 10/13/16 13:00 11/12/16 12:59 10/13/16 12:29 Diphenhydramine HCl (Benadryl) 25 mg Q6H PRN ORAL Itching/Pruritis 10/11/16 07:45 11/10/16 07:44 Famotidine (Pepcid I.v.) 20 mg QHS IVP 10/11/16 21:00 11/10/16 20:59 10/12/16 22:02 Furosemide (Lasix) 20 mg BID ORAL 10/11/16 09:00 11/10/16 08:59 10/13/16 08:11 Multi-Ingredient Ointment (Eucerin) 1 applic BID TOPIC 10/12/16 18:00 10/17/16 17:59 10/13/16 08:11 Ondansetron HCl (Zofran) 4 mg Q6H PRN IVP Nausea & Vomiting 10/11/16 07:45 11/10/16 07:44 Pantoprazole (Protonix) 40 mg EVERY 12 HOURS ORAL 10/12/16 09:30 11/11/16 09:29 10/13/16 08:11 Polyethylene Glycol (Miralax) 17 gm HSPRN PRN ORAL Constipation 10/11/16 07:45 11/10/16 07:44 Sevelamer Carbonate (Renvela) 800 mg THREE TIMES A DAY ORAL 10/11/16 09:00 11/10/16 08:59 10/13/16 12:29 Sildenafil Citrate (Revatio) 20 mg THREE TIMES A DAY ORAL 10/11/16 09:00 11/10/16 08:59 10/13/16 12:29 Sucralfate (Carafate) 1 gm FOUR TIMES A DAY ORAL 10/12/16 09:30 11/11/16 09:29 10/13/16 12:29 Radhames Canchola M.D. Oct 13, 2016 15:17
[2016-10-13 16:00] VITALS: BP 98/57
--- NOTE | 2016-10-13 18:28 | Cardiology Progress Note ---
Assessment/Plan Assessment/Plan [id number] Objective Last 24 Hour Vital Signs Date Time Temp Pulse Resp B/P (MAP) Pulse Ox O2 Delivery O2 Flow Rate FiO2 10/13/16 17:26 86 17 35 10/13/16 16:00 75 10/13/16 16:00 35 10/13/16 16:00 98.4 74 18 98/57 99 Mechanical Ventilator 10/13/16 15:25 75 18 100 Mechanical Ventilator 35 10/13/16 15:10 35 10/13/16 15:10 81 14 100 Mechanical Ventilator 35 10/13/16 15:07 83 16 35 10/13/16 12:43 77 14 35 10/13/16 12:00 97.5 81 18 125/71 98 Mechanical Ventilator 10/13/16 12:00 35 10/13/16 11:55 78 10/13/16 11:40 81 10/13/16 11:20 79 14 35 10/13/16 08:49 79 14 35 10/13/16 08:00 97.0 84 19 118/68 99 Mechanical Ventilator 10/13/16 08:00 91 10/13/16 08:00 35 10/13/16 07:21 67 14 100 Mechanical Ventilator 35 10/13/16 07:13 66 14 35 10/13/16 07:12 66 14 100 Mechanical Ventilator 35 10/13/16 07:12 35 10/13/16 05:10 93 14 40 10/13/16 04:00 74 10/13/16 04:00 40 10/13/16 04:00 97.7 81 19 111/36 97 Mechanical Ventilator 10/13/16 03:11 68 14 40 10/13/16 01:08 80 14 40 10/13/16 00:22 97.5 68 19 122/98 97 Mechanical Ventilator 10/13/16 00:00 40 10/13/16 00:00 67 10/12/16 23:13 88 14 100 Mechanical Ventilator 40 10/12/16 23:03 81 14 40 10/12/16 23:03 81 14 100 Mechanical Ventilator 40 10/12/16 23:03 40 10/12/16 21:18 86 14 40 10/12/16 20:16 97.9 99 18 115/82 95 Mechanical Ventilator 10/12/16 20:00 40 10/12/16 20:00 99 10/12/16 18:59 93 15 40 Intake and Output 10/13/16 10/14/16 19:00 07:00 Intake Total 925 ml Output Total 150 ml Balance 775 ml Intake Oral 300 ml IV Total 625 ml Output Urine Total 150 ml Laboratory Tests Test 10/13/16 03:25 White Blood Count 5.6 K/UL (4.8-10.8) Red Blood Count 2.63 M/UL (4.20-5.40) L Hemoglobin 7.5 G/DL (12.0-16.0) L Hematocrit 24.0 % (37.0-47.0) L Mean Corpuscular Volume 91 FL (80-99) Mean Corpuscular Hemoglobin 28.5 PG (27.0-31.0) Mean Corpuscular Hemoglobin Concent 31.3 G/DL (32.0-36.0) L Red Cell Distribution Width 13.8 % (11.6-14.8) Platelet Count 168 K/UL (150-450) Mean Platelet Volume 5.4 FL (6.5-10.1) L Neutrophils (%) (Auto) % (45.0-75.0) Lymphocytes (%) (Auto) % (20.0-45.0) Monocytes (%) (Auto) % (1.0-10.0) Eosinophils (%) (Auto) % (0.0-3.0) Basophils (%) (Auto) % (0.0-2.0) Differential Total Cells Counted 100 Neutrophils % (Manual) 73 % (45-75) Lymphocytes % (Manual) 21 % (20-45) Monocytes % (Manual) 2 % (1-10) Eosinophils % (Manual) 3 % (0-3) Basophils % (Manual) 0 % (0-2) Band Neutrophils 1 % (0-8) Platelet Estimate Adequate Platelet Morphology Normal Hypochromasia 1+ Prothrombin Time 12.7 SEC (9.30-11.50) H Prothromb Time International Ratio 1.2 (0.9-1.1) H Activated Partial Thromboplast Time 29 SEC (23-33) Sodium Level 138 mEQ/L (135-145) Potassium Level 3.5 mEQ/L (3.4-4.9) Chloride Level 98 mEQ/L (98-107) Carbon Dioxide Level 28 mEQ/L (20-30) Anion Gap 12 (5-15) Blood Urea Nitrogen 69 mg/dL (7-23) H Creatinine 3.0 mg/dL (0.5-0.9) H Estimat Glomerular Filtration Rate mL/min (>60) Glucose Level 127 mg/dL (74-106) H Calcium Level 8.3 mg/dL (8.6-10.2) L Phosphorus Level 3.8 mg/dL (2.5-4.8) Magnesium Level 1.7 mg/dL (1.7-2.5) Total Bilirubin 0.3 mg/dL (0.0-1.2) Aspartate Amino Transf (AST/SGOT) 10 U/L (5-40) Alanine Aminotransferase (ALT/SGPT) 5 U/L (3-33) Alkaline Phosphatase 61 U/L (35-104) Total Protein 5.9 g/dL (6.6-8.7) L Albumin 2.5 g/dL (3.5-5.2) L Globulin 3.4 g/dL Albumin/Globulin Ratio 0.7 (1.0-2.7) L Microbiology Date/Time Source Procedure Growth Status 10/11/16 00:00 Blood Blood Culture - Preliminary NO GROWTH AFTER 48 HOURS Resulted 10/10/16 23:45 Blood Blood Culture - Preliminary NO GROWTH AFTER 48 HOURS Resulted 10/11/16 02:00 Nasal Nares MRSA Culture - Final NO METHICILLIN RESISTANT STAPH AUREUS... Complete BRIANA TELLES Oct 13, 2016 18:28
[2016-10-13 20:00] VITALS: BP 110/57
--- NOTE | 2016-10-13 21:03 | General Progress Note ---
Assessment/Plan Assessment/Plan Assessment - Recurrent UGIB due to diffuse gastritis combined with anticoagulation - s/p recent endoscopy on prior admission - Anemia (GI Bleed, CRF, Chronic Dz) - Renal failure - Resp failure Recommendations - PPI at BID dose - Carafate QID - lowest anticoagulation level, as feasible - monitor labs - Check and replace Iron - Advance PO diet - No plans for repeat Endoscopy, unless severe bleeding Subjective Allergies: Coded Allergies: AMOXICILLIN (Verified Allergy, Mild, RASH, 09/30/16) MORPHINE (Unverified Allergy, Unknown, 09/30/16) PENICILLINS (Unverified Allergy, Unknown, 09/30/16) Subjective Feels OK tolerating clears no vomiting ST noted Objective Last 24 Hour Vital Signs Date Time Temp Pulse Resp B/P (MAP) Pulse Ox O2 Delivery O2 Flow Rate FiO2 10/13/16 19:29 73 15 35 10/13/16 17:26 86 17 35 10/13/16 16:00 75 10/13/16 16:00 35 10/13/16 16:00 98.4 74 18 98/57 99 Mechanical Ventilator 10/13/16 15:25 75 18 100 Mechanical Ventilator 35 10/13/16 15:10 35 10/13/16 15:10 81 14 100 Mechanical Ventilator 35 10/13/16 15:07 83 16 35 10/13/16 12:43 77 14 35 10/13/16 12:00 97.5 81 18 125/71 98 Mechanical Ventilator 10/13/16 12:00 35 10/13/16 11:55 78 10/13/16 11:40 81 10/13/16 11:20 79 14 35 10/13/16 08:49 79 14 35 10/13/16 08:00 97.0 84 19 118/68 99 Mechanical Ventilator 10/13/16 08:00 91 10/13/16 08:00 35 10/13/16 07:21 67 14 100 Mechanical Ventilator 35 10/13/16 07:13 66 14 35 10/13/16 07:12 66 14 100 Mechanical Ventilator 35 10/13/16 07:12 35 10/13/16 05:10 93 14 40 10/13/16 04:00 74 10/13/16 04:00 40 10/13/16 04:00 97.7 81 19 111/36 97 Mechanical Ventilator 10/13/16 03:11 68 14 40 10/13/16 01:08 80 14 40 10/13/16 00:22 97.5 68 19 122/98 97 Mechanical Ventilator 10/13/16 00:00 40 10/13/16 00:00 67 10/12/16 23:13 88 14 100 Mechanical Ventilator 40 10/12/16 23:03 81 14 40 10/12/16 23:03 81 14 100 Mechanical Ventilator 40 10/12/16 23:03 40 10/12/16 21:18 86 14 40 Intake and Output 10/13/16 10/14/16 19:00 07:00 Intake Total 975 ml Output Total 150 ml Balance 825 ml Intake Oral 300 ml IV Total 675 ml Output Urine Total 150 ml Laboratory Tests 10/13/16 03:25: White Blood Count 5.6, Red Blood Count 2.63L, Hemoglobin 7.5L, Hematocrit 24.0L , Mean Corpuscular Volume 91, Mean Corpuscular Hemoglobin 28.5, Mean Corpuscular Hemoglobin Concent 31.3L, Red Cell Distribution Width 13.8, Platelet Count 168, Mean Platelet Volume 5.4L, Neutrophils (%) (Auto) , Lymphocytes (%) (Auto) , Monocytes (%) (Auto) , Eosinophils (%) (Auto) , Basophils (%) (Auto) , Differential Total Cells Counted 100, Neutrophils % ( Manual) 73, Lymphocytes % (Manual) 21, Monocytes % (Manual) 2, Eosinophils % ( Manual) 3, Basophils % (Manual) 0, Band Neutrophils 1, Platelet Estimate Adequate, Platelet Morphology Normal, Hypochromasia 1+, Prothrombin Time 12.7H, Prothromb Time International Ratio 1.2H, Activated Partial Thromboplast Time 29 , Sodium Level 138, Potassium Level 3.5, Chloride Level 98, Carbon Dioxide Level 28, Anion Gap 12, Blood Urea Nitrogen 69H, Creatinine 3.0H, Estimat Glomerular Filtration Rate , Glucose Level 127H, Calcium Level 8.3L, Phosphorus Level 3.8, Magnesium Level 1.7, Total Bilirubin 0.3, Aspartate Amino Transf (AST /SGOT) 10, Alanine Aminotransferase (ALT/SGPT) 5, Alkaline Phosphatase 61, Total Protein 5.9L, Albumin 2.5L, Globulin 3.4, Albumin/Globulin Ratio 0.7L Height (Feet): 5 Height (Inches): 6.00 Weight (Pounds): 345 Objective Obese WW NCAT CTA RR Soft obese tr edema BRETT DALE Oct 13, 2016 21:03
--- NOTE | 2016-10-13 21:03 | General Progress Note ---
Assessment/Plan Status: progressing Assessment/Plan 1. Acute on chronic respiratory failure. Continue ventilator. Dr. Rene, hotel administrative assistant, aspiration precaution. 2. Gastrointestinal bleed. The patient had an episode of hematemesis prior to coming in. Monitor hemoglobin and hematocrit. The patient was seen by Dr. Rodriguez and underwent endoscopy prior admission. No plans for endoscopy at this time. Continue with Carafate and PPI. We will advance diet per gastrointestinal recommendation. 3. Morbid obesity. weight loss encouraged 4. Atrial fibrillation. Apixaban has been discontinued. Dr. Peralta to make recommendations 5. Dysphagia. The patient is tracheostomy status. We will start on clear liquids for now. Advance as tolerated with goal of pureed diet. 6. Bilateral lower extremity lymphedema. No open wound. SCDs 7. Chronic kidney disease. Continue to monitor renal function. 8. Acute anemia. Hemoglobin today dropped to 7.2. She was given one unit packed red blood cell blood transfusion. monitor H/H 9. Acute on chronic renal failure. hold lasix discussed with patient and nurse Subjective Date patient seen: Oct 13, 2016 Allergies: Coded Allergies: AMOXICILLIN (Verified Allergy, Mild, RASH, 09/30/16) MORPHINE (Unverified Allergy, Unknown, 09/30/16) PENICILLINS (Unverified Allergy, Unknown, 09/30/16) Objective Last 24 Hour Vital Signs Date Time Temp Pulse Resp B/P (MAP) Pulse Ox O2 Delivery O2 Flow Rate FiO2 10/13/16 19:29 73 15 35 10/13/16 17:26 86 17 35 10/13/16 16:00 75 10/13/16 16:00 35 10/13/16 16:00 98.4 74 18 98/57 99 Mechanical Ventilator 10/13/16 15:25 75 18 100 Mechanical Ventilator 35 10/13/16 15:10 35 10/13/16 15:10 81 14 100 Mechanical Ventilator 35 10/13/16 15:07 83 16 35 10/13/16 12:43 77 14 35 10/13/16 12:00 97.5 81 18 125/71 98 Mechanical Ventilator 10/13/16 12:00 35 10/13/16 11:55 78 10/13/16 11:40 81 10/13/16 11:20 79 14 35 10/13/16 08:49 79 14 35 10/13/16 08:00 97.0 84 19 118/68 99 Mechanical Ventilator 10/13/16 08:00 91 10/13/16 08:00 35 10/13/16 07:21 67 14 100 Mechanical Ventilator 35 10/13/16 07:13 66 14 35 10/13/16 07:12 66 14 100 Mechanical Ventilator 35 10/13/16 07:12 35 10/13/16 05:10 93 14 40 10/13/16 04:00 74 10/13/16 04:00 40 10/13/16 04:00 97.7 81 19 111/36 97 Mechanical Ventilator 10/13/16 03:11 68 14 40 10/13/16 01:08 80 14 40 10/13/16 00:22 97.5 68 19 122/98 97 Mechanical Ventilator 10/13/16 00:00 40 10/13/16 00:00 67 10/12/16 23:13 88 14 100 Mechanical Ventilator 40 10/12/16 23:03 81 14 40 10/12/16 23:03 81 14 100 Mechanical Ventilator 40 10/12/16 23:03 40 10/12/16 21:18 86 14 40 Intake and Output 10/13/16 10/14/16 19:00 07:00 Intake Total 975 ml Output Total 150 ml Balance 825 ml Intake Oral 300 ml IV Total 675 ml Output Urine Total 150 ml Laboratory Tests 10/13/16 03:25: White Blood Count 5.6, Red Blood Count 2.63L, Hemoglobin 7.5L, Hematocrit 24.0L , Mean Corpuscular Volume 91, Mean Corpuscular Hemoglobin 28.5, Mean Corpuscular Hemoglobin Concent 31.3L, Red Cell Distribution Width 13.8, Platelet Count 168, Mean Platelet Volume 5.4L, Neutrophils (%) (Auto) , Lymphocytes (%) (Auto) , Monocytes (%) (Auto) , Eosinophils (%) (Auto) , Basophils (%) (Auto) , Differential Total Cells Counted 100, Neutrophils % ( Manual) 73, Lymphocytes % (Manual) 21, Monocytes % (Manual) 2, Eosinophils % ( Manual) 3, Basophils % (Manual) 0, Band Neutrophils 1, Platelet Estimate Adequate, Platelet Morphology Normal, Hypochromasia 1+, Prothrombin Time 12.7H, Prothromb Time International Ratio 1.2H, Activated Partial Thromboplast Time 29 , Sodium Level 138, Potassium Level 3.5, Chloride Level 98, Carbon Dioxide Level 28, Anion Gap 12, Blood Urea Nitrogen 69H, Creatinine 3.0H, Estimat Glomerular Filtration Rate , Glucose Level 127H, Calcium Level 8.3L, Phosphorus Level 3.8, Magnesium Level 1.7, Total Bilirubin 0.3, Aspartate Amino Transf (AST /SGOT) 10, Alanine Aminotransferase (ALT/SGPT) 5, Alkaline Phosphatase 61, Total Protein 5.9L, Albumin 2.5L, Globulin 3.4, Albumin/Globulin Ratio 0.7L Height (Feet): 5 Height (Inches): 6.00 Weight (Pounds): 345 General Appearance: morbidly obese EENT: PERRL/EOMI, pharynx normal Neck: non-tender, supple Cardiovascular: normal rate, regular rhythm, no gallop/murmur, no JVD Respiratory/Chest: chest wall non-tender, normal breath sounds, no respiratory distress Abdomen: non tender, soft, no mass Extremities: swelling Edema: no edema noted Arm (L), no edema noted Arm (R), 2+ Leg (L), 2+ Leg (R), 2+ Pedal (L), 2+ Pedal (R), 2+ Generalized Edema: severe edema 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
[2016-10-13] MEDS: Famotidine 20 MG/ 2ML VIAL IVP SCH (21:33)
[2016-10-14] VITALS: BP 101/62
[2016-10-14 04:00] VITALS: BP 106/64
--- NOTE | 2016-10-14 05:15 | Consultation ---
DATE OF CONSULTATION: 10/13/2016 CARDIOLOGY CONSULTATION CONSULTING PHYSICIAN: Faizan Peralta M.D. REFERRING PHYSICIAN: 1. Elidia Rene M.D. 2. Manny Nolan M.D. REASON FOR REFERRAL: Atrial fibrillation. HISTORY OF PRESENT ILLNESS: This is an elderly female, who is known to me from prior evaluation and hospitalization. The patient has a history of atrial fibrillation. She had been on anticoagulation prior to her hospitalization back in September 2016, at which time she was admitted with gastrointestinal bleeding, coffee-ground emesis, and anemia, which was chronic in nature, but was worsened. She was noted to have significant gastritis. Her anticoagulation for stroke prevention was discontinued due to the fact of her GI bleeding requiring transfusions and subsequently she had some episodes of diastolic heart failure and pulmonary hypertension of significant degree previously treated with sildenafil. The patient subsequently had a tracheostomy placed and was eventually sent back to convalescent facility. She was readmitted to the hospital again at this time on 10/11/2016 because of coffee-ground emesis as well as respiratory distress. Oxygen saturation apparently on room air was down to 70th percentile, although she had a tracheostomy, she would not hooked up to ventilator at the convalescent facility, but upon arrival here, the patient was placed on a ventilator. She is now awake and responsive. She denies significant shortness of breath at this time, although she still has some. She really does not have any chest pain. There is no palpitation. No dizziness or lightheadedness. No PND or orthopnea. She has been coughing. She is able to at times bring up some sputum or clear up some sputum with suctioning and that seems to help her. PAST MEDICAL HISTORY: Her past medical history is extensive and as mentioned includes a history of upper gastrointestinal bleeding, atrial fibrillation, for which she was on anticoagulation subsequently discontinued because of gastritis, renal failure, tracheostomy, anemia secondary to blood loss as well as chronic disease, B12 deficiency, respiratory failure on BiPAP, previously on a ventilator, but now status post tracheostomy, chronic obstructive pulmonary disease, morbid obesity, severe gastritis, respiratory acidosis, pulmonary hypertension treated with sildenafil previously, diabetes mellitus, cor pulmonale, diastolic heart failure, permanent atrial fibrillation, chronic renal insufficiency, systemic hypertension, acute on chronic hypercapnic respiratory failure, CO2 narcosis, cardiorenal syndrome, and diabetic nephropathy. MEDICATIONS: She is on calcitriol. She is on some intravenous fluids, Benadryl, Eucerin cream, Pepcid IV, Lasix 20 mg twice daily, Atrovent and albuterol inhaler, Zofran, Protonix, MiraLAX, Renvela, Revatio 20 mg three times a day, and Carafate 1 g four times a day. She is off anticoagulation at this time because of her recent GI bleeding. ALLERGIES: She is not allergic to any medications. SOCIAL HISTORY: She used to smoke 34 years ago. No alcohol. No drugs. She resides at a convalescent facility on the tracheostomy. REVIEW OF SYSTEMS: Gastrointestinal: She denies. Genitourinary: She does admit to having some discomfort on urination. Pulmonary: Occasional coughing and sputum production. Constitutional: Negative. Neurological: Negative. PHYSICAL EXAMINATION: GENERAL: Shows a morbidly obese elderly female, in no respiratory distress. She is on a mechanical ventilator as well as tracheostomy. She is able to communicate verbally at times through her mouth. VITAL SIGNS: Blood pressure is anywhere between 98/57 to 125/71. LUNGS: Appear to be showing some rhonchi, being noted some crackles. CARDIAC: Irregularly irregular. Not tachycardic. No heaves or thrills. ABDOMEN: Soft and obese. Positive bowel sounds. EXTREMITIES: There is edema. NEUROLOGIC: She is awake, alert, and responsive, in no apparent respiratory distress. LABORATORY AND DIAGNOSTIC DATA: Laboratory values, venous duplex study shows poor visualization of the distal vascular secondary body habitus. The proximal vessels were not of any significant thrombus. Chest x-ray shows interstitial edema. White count of 5.6, hemoglobin 7.5, and platelet count of 168,000. Blood gases yesterday showed pH of 7.28, pCO2 64, pO2 of 86, and bicarbonate of 30. Her sodium is 138, potassium 3.5, chloride 98, bicarbonate 28, BUN 69, and creatinine 3.0. Of note, the patient's creatinine is anywhere between in the 2 to 3 range on recent hospitalizations. Albumin of 3.5. Coags, INR 1.2 and PTT of 26. Urinalysis shows 0 to 2 WBCs. Electrocardiogram shows atrial fibrillation, ventricular response, borderline tachycardic, low voltage QRS complexes, secondary to body habitus. The patient's last echocardiogram was performed on 09/07/2016, which showed systolic function to be normal with flattening of the ventricular septum secondary to pressure overload with IVC being dilated at 3.4, pulmonary artery systolic pressure of 94, and severe tricuspid regurgitation was noted. ASSESSMENT AND PLAN: 1. Acute on chronic respiratory failure. 2. Anemia. 3. Probable diastolic heart failure. 4. Permanent atrial fibrillation. 5. Gastrointestinal bleeding history, now off anticoagulation. 6. Renal insufficiency. Dr. Rene and Dr. Nolan, this patient was seen in cardiac consultation. The patient's heart rate seems for the most part adequately controlled, although she has had some episodes of tachycardia likely related to demand and/or breathing treatments. She should receive some intravenous diuretics. I would discontinue the use of IV fluids if possible and continue the diuretics, but possibly intravenously as the patient's blood pressure allows. Further recommendations will be provided depending on her response and need of further therapy. Faizan Peralta M.D. DR: HSERITA JOB#: [id number] CC:
[2016-10-14 05:51] LABS: INR 1.2 (0.9-1.1); PROTHROMBIN TIME 12.5 SEC (9.30-11.50)
[2016-10-14 05:54] LABS: BASOPHILS % (AUTO) 0.7 % (0.0-2.0); EOSINOPHILS % (AUTO) 5.5 % (0.0-3.0); LYMPHOCYTES % (AUTO) 17.7 % (20.0-45.0); MEAN CORPUSCULAR HEMOGLOBIN 27.9 PG (27.0-31.0); MEAN CORPUSCULAR HGB CONC 30.9 G/DL (32.0-36.0); MEAN CORPUSCULAR VOLUME 90 FL (80-99); MEAN PLATELET VOLUME 5.5 FL (6.5-10.1); MONOCYTES % (AUTO) 7.4 % (1.0-10.0); NEUTROPHILS % (AUTO) 68.7 % (45.0-75.0); PLATELET COUNT 171 K/UL (150-450); RED BLOOD COUNT 2.85 M/UL (4.20-5.40); RED CELL DISTRIBUTION WIDTH 13.8 % (11.6-14.8); WHITE BLOOD COUNT 5.7 K/UL (4.8-10.8)
[2016-10-14 06:05] LABS: ALANINE AMINOTRANSFERASE 5 U/L (3-33); ALBUMIN/GLOBULIN RATIO 0.7 (1.0-2.7); ANION GAP 14 (5-15); ASPARTATE AMINO TRANSFERASE 10 U/L (5-40); CALCIUM 8.4 mg/dL (8.6-10.2); CARBON DIOXIDE 27 mEQ/L (20-30); CHLORIDE 97 mEQ/L (98-107); CREATININE 2.9 mg/dL (0.5-0.9); HEMOLYSIS 0; MAGNESIUM 1.6 mg/dL (1.7-2.5); PHOSPHORUS 3.6 mg/dL (2.5-4.8); POTASSIUM 3.5 mEQ/L (3.4-4.9); SODIUM 138 mEQ/L (135-145)
[2016-10-14] MEDS: D5 1/2NS 1,000 ML IV SCH (06:09)
[2016-10-14] MEDS: DuoNeb 0.5-3(2.5)mg/3ml neb HHN SCH ×3 (07:23→22:30)
[2016-10-14 08:00] VITALS: BP 115/66
[2016-10-14] MEDS: Calcitriol 0.25mcg Cap ORAL SCH (09:09)
[2016-10-14] MEDS: Eucerin Cream 15gm TOPIC SCH ×2 (09:10→17:29)
[2016-10-14] MEDS: Sucralfate 1gm tab ORAL SCH ×4 (09:10→20:17)
[2016-10-14] MEDS: Revatio 20mg tab ORAL SCH ×3 (09:12→17:40)
--- NOTE | 2016-10-14 09:22 | General Progress Note ---
Assessment/Plan Assessment/Plan Assessment - Recurrent UGIB due to diffuse gastritis combined with anticoagulation - s/p recent endoscopy on prior admission - Anemia (GI Bleed, CRF, Chronic Dz) - Renal failure - Resp failure Recommendations - PPI at BID dose - Carafate QID - lowest anticoagulation level, as feasible - monitor labs - Check and replace Iron - Advance PO diet - No plans for repeat Endoscopy, unless severe bleeding Subjective Allergies: Coded Allergies: AMOXICILLIN (Verified Allergy, Mild, RASH, 09/30/16) MORPHINE (Unverified Allergy, Unknown, 09/30/16) PENICILLINS (Unverified Allergy, Unknown, 09/30/16) Subjective Feels OK does not want full liq or pureed diet wants to go back to [facility] advised nutritionally inadequat d/w RN - will get RD and ST input Objective Last 24 Hour Vital Signs Date Time Temp Pulse Resp B/P (MAP) Pulse Ox O2 Delivery O2 Flow Rate FiO2 10/14/16 07:33 35 10/14/16 07:33 77 16 100 Mechanical Ventilator 35 10/14/16 07:23 78 16 35 10/14/16 07:23 78 16 100 Mechanical Ventilator 35 10/14/16 05:15 66 14 35 10/14/16 04:00 35 10/14/16 04:00 97.7 70 14 106/64 99 Mechanical Ventilator 35 10/14/16 04:00 65 10/14/16 03:25 68 14 35 10/14/16 01:03 70 14 35 10/14/16 00:00 97.6 68 18 101/62 99 Mechanical Ventilator 35 10/14/16 00:00 67 10/13/16 23:12 66 14 100 Mechanical Ventilator 35 10/13/16 22:52 35 10/13/16 22:52 73 14 100 Mechanical Ventilator 35 10/13/16 22:50 73 14 35 10/13/16 21:22 82 17 35 10/13/16 20:00 98.0 78 18 110/57 99 Mechanical Ventilator 10/13/16 20:00 93 10/13/16 20:00 35 10/13/16 19:29 73 15 35 10/13/16 17:26 86 17 35 10/13/16 16:00 75 10/13/16 16:00 35 10/13/16 16:00 98.4 74 18 98/57 99 Mechanical Ventilator 10/13/16 15:25 75 18 100 Mechanical Ventilator 35 10/13/16 15:10 35 10/13/16 15:10 81 14 100 Mechanical Ventilator 35 10/13/16 15:07 83 16 35 10/13/16 12:43 77 14 35 10/13/16 12:00 97.5 81 18 125/71 98 Mechanical Ventilator 10/13/16 12:00 35 10/13/16 11:55 78 10/13/16 11:40 81 10/13/16 11:20 79 14 35 Laboratory Tests 10/14/16 03:46: White Blood Count 5.7, Red Blood Count 2.85L, Hemoglobin 8.0L, Hematocrit 25.8L , Mean Corpuscular Volume 90, Mean Corpuscular Hemoglobin 27.9, Mean Corpuscular Hemoglobin Concent 30.9L, Red Cell Distribution Width 13.8, Platelet Count 171, Mean Platelet Volume 5.5L, Neutrophils (%) (Auto) 68.7, Lymphocytes (%) (Auto) 17.7L, Monocytes (%) (Auto) 7.4, Eosinophils (%) (Auto) 5.5H, Basophils (%) (Auto) 0.7, Prothrombin Time 12.5H, Prothromb Time International Ratio 1.2H, Activated Partial Thromboplast Time 29, Sodium Level 138, Potassium Level 3.5, Chloride Level 97L, Carbon Dioxide Level 27, Anion Gap 14, Blood Urea Nitrogen 69H, Creatinine 2.9H, Estimat Glomerular Filtration Rate , Glucose Level 108H, Calcium Level 8.4L, Phosphorus Level 3.6, Magnesium Level 1.6L, Total Bilirubin 0.4, Aspartate Amino Transf (AST/SGOT) 10, Alanine Aminotransferase (ALT/SGPT) 5, Alkaline Phosphatase 63, Total Protein 6.0L, Albumin 2.5L, Globulin 3.5, Albumin/Globulin Ratio 0.7L Height (Feet): 5 Height (Inches): 6.00 Weight (Pounds): 345 Objective Obese WW NCAT (+) trach CTA RR Soft obese tr edema BRETT DALE Oct 14, 2016 09:22
--- NOTE | 2016-10-14 11:28 | Pulmonology Progress Note ---
Assessment/Plan Problems: (1) Acute GI bleeding (2) Chronic respiratory failure (3) CHF (congestive heart failure) (4) Anemia (5) ATN (acute tubular necrosis) (6) Morbid obesity (7) Atrial fibrillation, chronic Assessment/Plan prbc prn f/u GI recommendation f/u bun/creatinine decrease IV fluids check h/h all notes reviewed. cardio note appreciated Subjective ROS Limited/Unobtainable: No Constitutional: Reports: no symptoms Respiratory: Reports: no symptoms Allergies: Coded Allergies: AMOXICILLIN (Verified Allergy, Mild, RASH, 09/30/16) MORPHINE (Unverified Allergy, Unknown, 09/30/16) PENICILLINS (Unverified Allergy, Unknown, 09/30/16) Objective Last 24 Hour Vital Signs Date Time Temp Pulse Resp B/P (MAP) Pulse Ox O2 Delivery O2 Flow Rate FiO2 10/14/16 09:21 79 16 35 10/14/16 08:00 35 10/14/16 08:00 83 10/14/16 08:00 98.7 76 14 115/66 99 Mechanical Ventilator 35 10/14/16 07:33 35 10/14/16 07:33 77 16 100 Mechanical Ventilator 35 10/14/16 07:23 78 16 35 10/14/16 07:23 78 16 100 Mechanical Ventilator 35 10/14/16 05:15 66 14 35 10/14/16 04:00 35 10/14/16 04:00 97.7 70 14 106/64 99 Mechanical Ventilator 35 10/14/16 04:00 65 10/14/16 03:25 68 14 35 10/14/16 01:03 70 14 35 10/14/16 00:00 97.6 68 18 101/62 99 Mechanical Ventilator 35 10/14/16 00:00 67 10/13/16 23:12 66 14 100 Mechanical Ventilator 35 10/13/16 22:52 35 10/13/16 22:52 73 14 100 Mechanical Ventilator 35 10/13/16 22:50 73 14 35 10/13/16 21:22 82 17 35 10/13/16 20:00 98.0 78 18 110/57 99 Mechanical Ventilator 10/13/16 20:00 93 10/13/16 20:00 35 10/13/16 19:29 73 15 35 10/13/16 17:26 86 17 35 10/13/16 16:00 75 10/13/16 16:00 35 10/13/16 16:00 98.4 74 18 98/57 99 Mechanical Ventilator 10/13/16 15:25 75 18 100 Mechanical Ventilator 35 10/13/16 15:10 35 10/13/16 15:10 81 14 100 Mechanical Ventilator 35 10/13/16 15:07 83 16 35 10/13/16 12:43 77 14 35 10/13/16 12:00 97.5 81 18 125/71 98 Mechanical Ventilator 10/13/16 12:00 35 10/13/16 11:55 78 10/13/16 11:40 81 Intake and Output 10/14/16 10/15/16 19:00 07:00 Intake Total 200 ml Balance 200 ml IV Total 200 ml General Appearance: WD/WN HEENT: normocephalic, atraumatic Respiratory/Chest: chest wall non-tender, normal breath sounds Abdomen: normal bowel sounds, soft, non tender Extremities: no cyanosis Skin: no rash Laboratory Tests 10/14/16 03:46: White Blood Count 5.7, Red Blood Count 2.85L, Hemoglobin 8.0L, Hematocrit 25.8L , Mean Corpuscular Volume 90, Mean Corpuscular Hemoglobin 27.9, Mean Corpuscular Hemoglobin Concent 30.9L, Red Cell Distribution Width 13.8, Platelet Count 171, Mean Platelet Volume 5.5L, Neutrophils (%) (Auto) 68.7, Lymphocytes (%) (Auto) 17.7L, Monocytes (%) (Auto) 7.4, Eosinophils (%) (Auto) 5.5H, Basophils (%) (Auto) 0.7, Prothrombin Time 12.5H, Prothromb Time International Ratio 1.2H, Activated Partial Thromboplast Time 29, Sodium Level 138, Potassium Level 3.5, Chloride Level 97L, Carbon Dioxide Level 27, Anion Gap 14, Blood Urea Nitrogen 69H, Creatinine 2.9H, Estimat Glomerular Filtration Rate , Glucose Level 108H, Calcium Level 8.4L, Phosphorus Level 3.6, Magnesium Level 1.6L, Total Bilirubin 0.4, Aspartate Amino Transf (AST/SGOT) 10, Alanine Aminotransferase (ALT/SGPT) 5, Alkaline Phosphatase 63, Total Protein 6.0L, Albumin 2.5L, Globulin 3.5, Albumin/Globulin Ratio 0.7L Current Medications Medications (Trade) Dose Ordered Sig/Kalyn Route PRN Reason Start Time Stop Time Status Last Admin Dose Admin Acetaminophen (Tylenol) 650 mg Q4H PRN ORAL fever 10/11/16 07:45 11/10/16 07:44 Al Hydroxide/Mg Hydroxide (Mylanta II) 30 ml Q6H PRN ORAL dyspepsia 10/11/16 07:45 11/10/16 07:44 Albuterol/ Ipratropium (DuoNeb 0.5-3(2.5)mg/3ml) 3 ml Q8HRT HHN 10/13/16 15:00 10/18/16 14:59 10/14/16 07:23 Calcitriol (Rocatrol) 0.25 mcg DAILY ORAL 10/11/16 09:00 11/10/16 08:59 10/14/16 09:09 Dextrose (Dextrose 50%) STAT PRN IV Hypoglycemia 10/11/16 07:45 11/10/16 07:44 Dextrose/Sodium Chloride 1,000 ml @ 50 mls/hr Q20H IV 10/13/16 13:00 11/12/16 12:59 10/14/16 06:09 Diphenhydramine HCl (Benadryl) 25 mg Q6H PRN ORAL Itching/Pruritis 10/11/16 07:45 11/10/16 07:44 Famotidine (Pepcid I.v.) 20 mg QHS IVP 10/11/16 21:00 11/10/16 20:59 10/13/16 21:33 Furosemide (Lasix) 20 mg BID ORAL 10/11/16 09:00 11/10/16 08:59 10/14/16 09:10 Multi-Ingredient Ointment (Eucerin) 1 applic BID TOPIC 10/12/16 18:00 10/17/16 17:59 10/14/16 09:10 Ondansetron HCl (Zofran) 4 mg Q6H PRN IVP Nausea & Vomiting 10/11/16 07:45 11/10/16 07:44 Pantoprazole (Protonix) 40 mg EVERY 12 HOURS ORAL 10/12/16 09:30 11/11/16 09:29 10/14/16 09:09 Polyethylene Glycol (Miralax) 17 gm HSPRN PRN ORAL Constipation 10/11/16 07:45 11/10/16 07:44 Sevelamer Carbonate (Renvela) 800 mg THREE TIMES A DAY ORAL 10/11/16 09:00 11/10/16 08:59 10/14/16 09:09 Sildenafil Citrate (Revatio) 20 mg THREE TIMES A DAY ORAL 10/11/16 09:00 11/10/16 08:59 10/14/16 09:12 Sucralfate (Carafate) 1 gm FOUR TIMES A DAY ORAL 10/12/16 09:30 11/11/16 09:29 10/14/16 09:10 ARASH MIRANDA Oct 14, 2016 11:28
[2016-10-14 12:00] VITALS: BP 116/62
--- NOTE | 2016-10-14 13:44 | General Progress Note ---
Assessment/Plan Assessment/Plan 1. Acute on chronic respiratory failure. Continue ventilator. Dr. Rene, equal opportunity officer, aspiration precaution. 2. Gastrointestinal bleed. The patient had an episode of hematemesis prior to coming in. Monitor hemoglobin and hematocrit. The patient was seen by Dr. Rodriguez and underwent endoscopy prior admission. No plans for endoscopy at this time. Continue with Carafate and PPI. We will advance diet per gastrointestinal recommendation. 3. Morbid obesity. weight loss encouraged 4. Atrial fibrillation. Apixaban has been discontinued. Dr. Peralta to make recommendations 5. Dysphagia. The patient is tracheostomy status. We will start on clear liquids for now. Advance as tolerated with goal of pureed diet. 6. Bilateral lower extremity lymphedema. No open wound. SCDs 7. Chronic kidney disease. Continue to monitor renal function. 8. Acute anemia. Hemoglobin today dropped to 7.2. She was given one unit packed red blood cell blood transfusion. monitor H/H 9. Acute on chronic renal failure. hold lasix discussed with patient and nurse 10. anemia: patient to get one more unit of PRBC transfusion today dc planning to rehab in am if clinically stable Subjective Date patient seen: Oct 14, 2016 Allergies: Coded Allergies: AMOXICILLIN (Verified Allergy, Mild, RASH, 09/30/16) MORPHINE (Unverified Allergy, Unknown, 09/30/16) PENICILLINS (Unverified Allergy, Unknown, 09/30/16) Objective Last 24 Hour Vital Signs Date Time Temp Pulse Resp B/P (MAP) Pulse Ox O2 Delivery O2 Flow Rate FiO2 10/14/16 12:00 98.2 70 14 116/62 99 Mechanical Ventilator 35 10/14/16 12:00 35 10/14/16 11:21 81 16 35 10/14/16 09:21 79 16 35 10/14/16 08:00 35 10/14/16 08:00 83 10/14/16 08:00 98.7 76 14 115/66 99 Mechanical Ventilator 35 10/14/16 07:33 35 10/14/16 07:33 77 16 100 Mechanical Ventilator 35 10/14/16 07:23 78 16 35 10/14/16 07:23 78 16 100 Mechanical Ventilator 35 10/14/16 05:15 66 14 35 10/14/16 04:00 35 10/14/16 04:00 97.7 70 14 106/64 99 Mechanical Ventilator 35 10/14/16 04:00 65 10/14/16 03:25 68 14 35 10/14/16 01:03 70 14 35 10/14/16 00:00 97.6 68 18 101/62 99 Mechanical Ventilator 35 10/14/16 00:00 67 10/13/16 23:12 66 14 100 Mechanical Ventilator 35 10/13/16 22:52 35 10/13/16 22:52 73 14 100 Mechanical Ventilator 35 10/13/16 22:50 73 14 35 10/13/16 21:22 82 17 35 10/13/16 20:00 98.0 78 18 110/57 99 Mechanical Ventilator 10/13/16 20:00 93 10/13/16 20:00 35 10/13/16 19:29 73 15 35 10/13/16 17:26 86 17 35 10/13/16 16:00 75 10/13/16 16:00 35 10/13/16 16:00 98.4 74 18 98/57 99 Mechanical Ventilator 10/13/16 15:25 75 18 100 Mechanical Ventilator 35 10/13/16 15:10 35 10/13/16 15:10 81 14 100 Mechanical Ventilator 35 10/13/16 15:07 83 16 35 Intake and Output 10/14/16 10/15/16 19:00 07:00 Intake Total 300 ml Balance 300 ml IV Total 300 ml Laboratory Tests 10/14/16 03:46: White Blood Count 5.7, Red Blood Count 2.85L, Hemoglobin 8.0L, Hematocrit 25.8L , Mean Corpuscular Volume 90, Mean Corpuscular Hemoglobin 27.9, Mean Corpuscular Hemoglobin Concent 30.9L, Red Cell Distribution Width 13.8, Platelet Count 171, Mean Platelet Volume 5.5L, Neutrophils (%) (Auto) 68.7, Lymphocytes (%) (Auto) 17.7L, Monocytes (%) (Auto) 7.4, Eosinophils (%) (Auto) 5.5H, Basophils (%) (Auto) 0.7, Prothrombin Time 12.5H, Prothromb Time International Ratio 1.2H, Activated Partial Thromboplast Time 29, Sodium Level 138, Potassium Level 3.5, Chloride Level 97L, Carbon Dioxide Level 27, Anion Gap 14, Blood Urea Nitrogen 69H, Creatinine 2.9H, Estimat Glomerular Filtration Rate , Glucose Level 108H, Calcium Level 8.4L, Phosphorus Level 3.6, Magnesium Level 1.6L, Total Bilirubin 0.4, Aspartate Amino Transf (AST/SGOT) 10, Alanine Aminotransferase (ALT/SGPT) 5, Alkaline Phosphatase 63, Total Protein 6.0L, Albumin 2.5L, Globulin 3.5, Albumin/Globulin Ratio 0.7L Height (Feet): 5 Height (Inches): 6.00 Weight (Pounds): 345 General Appearance: morbidly obese EENT: PERRL/EOMI, pharynx normal Neck: non-tender, supple Cardiovascular: normal rate, regular rhythm, no gallop/murmur, no JVD Respiratory/Chest: chest wall non-tender, normal breath sounds, no respiratory distress Abdomen: non tender, soft, no mass Extremities: non-tender, normal inspection, no calf tenderness Edema: no edema noted Arm (L), no edema noted Arm (R), 2+ Leg (L), 2+ Leg (R), 2+ Pedal (L), 2+ Pedal (R), 2+ 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
--- NOTE | 2016-10-14 14:51 | Diagnostic Imaging Report ---
APPROVED REPORT CPT Code: 38378 Present Symptoms Lower Extremity Pain: Bilateral Lower Extremity Edema: Bilateral Comments: Difficult and limited study due to patient's body habitus. BILATERAL: Imaging reveals a patent deep venous system bilaterally. There is no evidence of thrombus within the common femoral, proximal superficial femoral, popliteal or tibial segments. The greater saphenous veins are also within normal limits. Doppler indicates normal spontaneous flow within these segments. Mid to distal superficial femoral veins were not well visualized bilaterally due to patient's body habitus.
--- NOTE | 2016-10-14 15:25 | General Progress Note ---
Assessment/Plan Status Narrative Cr stable Assessment/Plan CKD- and acute renal failure Acute respiratory failure s/p Trach Obese COPD , CHF, Diastolic MINA UTI Anemia GI Bleed, GI bleeding At Fib Pulm HTN Low B12 Plan; Trach 09/20- adjust meds 24 h Urine CrCl and Protein- ordered previously ( CrCl 12) Optimize cardiac status- Monitor renal parameters and lytes- Avoid nephrotoxics B12 SQ- PO Folate Subjective ROS Limited/Unobtainable: No Constitutional: Reports: malaise Allergies: Coded Allergies: AMOXICILLIN (Verified Allergy, Mild, RASH, 09/30/16) MORPHINE (Unverified Allergy, Unknown, 09/30/16) PENICILLINS (Unverified Allergy, Unknown, 09/30/16) Objective Last 24 Hour Vital Signs Date Time Temp Pulse Resp B/P (MAP) Pulse Ox O2 Delivery O2 Flow Rate FiO2 10/14/16 12:59 79 16 35 10/14/16 12:00 70 10/14/16 12:00 98.2 70 14 116/62 99 Mechanical Ventilator 35 10/14/16 12:00 35 10/14/16 11:21 81 16 35 10/14/16 09:21 79 16 35 10/14/16 08:00 35 10/14/16 08:00 83 10/14/16 08:00 98.7 76 14 115/66 99 Mechanical Ventilator 10/14/16 07:33 35 10/14/16 07:33 77 16 100 Mechanical Ventilator 10/14/16 07:23 78 16 35 10/14/16 07:23 78 16 100 Mechanical Ventilator 10/14/16 05:15 66 14 35 10/14/16 04:00 35 10/14/16 04:00 97.7 70 14 106/64 99 Mechanical Ventilator 35 10/14/16 04:00 65 10/14/16 03:25 68 14 35 10/14/16 01:03 70 14 35 10/14/16 00:00 97.6 68 18 101/62 99 Mechanical Ventilator 10/14/16 00:00 67 10/13/16 23:12 66 14 100 Mechanical Ventilator 35 10/13/16 22:52 35 10/13/16 22:52 73 14 100 Mechanical Ventilator 35 10/13/16 22:50 73 14 35 10/13/16 21:22 82 17 35 10/13/16 20:00 98.0 78 18 110/57 99 Mechanical Ventilator 10/13/16 20:00 93 10/13/16 20:00 35 10/13/16 19:29 73 15 35 10/13/16 17:26 86 17 35 10/13/16 16:00 75 10/13/16 16:00 35 10/13/16 16:00 98.4 74 18 98/57 99 Mechanical Ventilator 10/13/16 15:25 75 18 100 Mechanical Ventilator 35 Intake and Output 10/14/16 10/15/16 19:00 07:00 Intake Total 350 ml Balance 350 ml IV Total 350 ml Laboratory Tests 10/14/16 03:46: White Blood Count 5.7, Red Blood Count 2.85L, Hemoglobin 8.0L, Hematocrit 25.8L , Mean Corpuscular Volume 90, Mean Corpuscular Hemoglobin 27.9, Mean Corpuscular Hemoglobin Concent 30.9L, Red Cell Distribution Width 13.8, Platelet Count 171, Mean Platelet Volume 5.5L, Neutrophils (%) (Auto) 68.7, Lymphocytes (%) (Auto) 17.7L, Monocytes (%) (Auto) 7.4, Eosinophils (%) (Auto) 5.5H, Basophils (%) (Auto) 0.7, Prothrombin Time 12.5H, Prothromb Time International Ratio 1.2H, Activated Partial Thromboplast Time 29, Sodium Level 138, Potassium Level 3.5, Chloride Level 97L, Carbon Dioxide Level 27, Anion Gap 14, Blood Urea Nitrogen 69H, Creatinine 2.9H, Estimat Glomerular Filtration Rate , Glucose Level 108H, Calcium Level 8.4L, Phosphorus Level 3.6, Magnesium Level 1.6L, Total Bilirubin 0.4, Aspartate Amino Transf (AST/SGOT) 10, Alanine Aminotransferase (ALT/SGPT) 5, Alkaline Phosphatase 63, Total Protein 6.0L, Albumin 2.5L, Globulin 3.5, Albumin/Globulin Ratio 0.7L Height (Feet): 5 Height (Inches): 6.00 Weight (Pounds): 345 General Appearance: no apparent distress Cardiovascular: normal rate Respiratory/Chest: decreased breath sounds Abdomen: soft COURTNEY LOPEZ Oct 14, 2016 15:25
[2016-10-14 16:00] VITALS: BP 130/70
--- NOTE | 2016-10-14 19:09 | Infectious Diseases Prog Note ---
Assessment/Plan Assessment/Plan A: 1) recurrent UGIB, s/p EGD 10/04 with severe gastritis s/p 1u PRBC early 10/13/16. 2) sepsis, sp. no evidence of infection. s/p Levofloxacin 1dose in ER, [id number] 3) borderline leukocytosis, resolved. stress response. 4) afebrile 5) BLE lymphedema. typical hypertrophic skin, cobblestoning, overlying scale and xerosis. looks less erythematous than last admission. no evidence of secondary skin/soft tissue infection. 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 no evidence of UTI now. 12) remote h/o VRE UTI April2016 13) u/a negative for pyuria. no evidence of UTI. 14) recent MRSA screen negative PLAN: --Monitor off abx --f/u blood cx x2 setsobtained 23:45 on [id number] so far ngtd at >48 hrs. --elevate BLE --continue sequential compression to BLE. looks a bit less edematous today, and patient reports resolution of her pain that had been secondary to tense edema. --monitor CBC --monitor temp, hemodynamics --trach care, asp precautions --s/p GI eval for UGIB, recurrent --continue contact isolation for h/o VRE and ESBL --recommend compression stockings as outpatient as she tolerates. Subjective Constitutional: Denies: no symptoms, fever, chills, fatigue, anorexia, drenching sweats, other Allergies: Coded Allergies: AMOXICILLIN (Verified Allergy, Mild, RASH, 09/30/16) MORPHINE (Unverified Allergy, Unknown, 09/30/16) PENICILLINS (Unverified Allergy, Unknown, 09/30/16) Objective Vital Signs Last 24 Hour Vital Signs Date Time Temp Pulse Resp B/P (MAP) Pulse Ox O2 Delivery O2 Flow Rate FiO2 10/14/16 16:33 85 10/14/16 16:00 98.4 83 19 130/70 98 Mechanical Ventilator 35 10/14/16 16:00 35 10/14/16 15:43 84 14 98 Mechanical Ventilator 35 10/14/16 15:43 35 10/14/16 15:32 81 18 100 Mechanical Ventilator 35 10/14/16 15:28 80 18 35 10/14/16 12:59 79 16 35 10/14/16 12:00 70 10/14/16 12:00 98.2 70 14 116/62 99 Mechanical Ventilator 35 10/14/16 12:00 35 10/14/16 11:21 81 16 35 10/14/16 09:21 79 16 35 10/14/16 08:00 35 10/14/16 08:00 83 10/14/16 08:00 98.7 76 14 115/66 99 Mechanical Ventilator 35 10/14/16 07:33 35 10/14/16 07:33 77 16 100 Mechanical Ventilator 35 10/14/16 07:23 78 16 35 10/14/16 07:23 78 16 100 Mechanical Ventilator 35 10/14/16 05:15 66 14 35 10/14/16 04:00 35 10/14/16 04:00 97.7 70 14 106/64 99 Mechanical Ventilator 35 10/14/16 04:00 65 10/14/16 03:25 68 14 35 10/14/16 01:03 70 14 35 10/14/16 00:00 97.6 68 18 101/62 99 Mechanical Ventilator 35 10/14/16 00:00 67 10/13/16 23:12 66 14 100 Mechanical Ventilator 35 10/13/16 22:52 35 10/13/16 22:52 73 14 100 Mechanical Ventilator 35 10/13/16 22:50 73 14 35 10/13/16 21:22 82 17 35 10/13/16 20:00 98.0 78 18 110/57 99 Mechanical Ventilator 10/13/16 20:00 93 10/13/16 20:00 35 10/13/16 19:29 73 15 35 Height (Feet): 5 Height (Inches): 6.00 Weight (Pounds): 345 HEENT: anicteric Respiratory/Chest: lungs clear Cardiovascular: regular rhythm Abdomen: no organomegaly Laboratory Tests Test 10/14/16 03:46 White Blood Count 5.7 K/UL (4.8-10.8) Red Blood Count 2.85 M/UL (4.20-5.40) L Hemoglobin 8.0 G/DL (12.0-16.0) L Hematocrit 25.8 % (37.0-47.0) L Mean Corpuscular Volume 90 FL (80-99) Mean Corpuscular Hemoglobin 27.9 PG (27.0-31.0) Mean Corpuscular Hemoglobin Concent 30.9 G/DL (32.0-36.0) L Red Cell Distribution Width 13.8 % (11.6-14.8) Platelet Count 171 K/UL (150-450) Mean Platelet Volume 5.5 FL (6.5-10.1) L Neutrophils (%) (Auto) 68.7 % (45.0-75.0) Lymphocytes (%) (Auto) 17.7 % (20.0-45.0) L Monocytes (%) (Auto) 7.4 % (1.0-10.0) Eosinophils (%) (Auto) 5.5 % (0.0-3.0) H Basophils (%) (Auto) 0.7 % (0.0-2.0) Prothrombin Time 12.5 SEC (9.30-11.50) H Prothromb Time International Ratio 1.2 (0.9-1.1) H Activated Partial Thromboplast Time 29 SEC (23-33) Sodium Level 138 mEQ/L (135-145) Potassium Level 3.5 mEQ/L (3.4-4.9) Chloride Level 97 mEQ/L (98-107) L Carbon Dioxide Level 27 mEQ/L (20-30) Anion Gap 14 (5-15) Blood Urea Nitrogen 69 mg/dL (7-23) H Creatinine 2.9 mg/dL (0.5-0.9) H Estimat Glomerular Filtration Rate mL/min (>60) Glucose Level 108 mg/dL (74-106) H Calcium Level 8.4 mg/dL (8.6-10.2) L Phosphorus Level 3.6 mg/dL (2.5-4.8) Magnesium Level 1.6 mg/dL (1.7-2.5) L Total Bilirubin 0.4 mg/dL (0.0-1.2) Aspartate Amino Transf (AST/SGOT) 10 U/L (5-40) Alanine Aminotransferase (ALT/SGPT) 5 U/L (3-33) Alkaline Phosphatase 63 U/L (35-104) Total Protein 6.0 g/dL (6.6-8.7) L Albumin 2.5 g/dL (3.5-5.2) L Globulin 3.5 g/dL Albumin/Globulin Ratio 0.7 (1.0-2.7) L Current Medications Medications (Trade) Dose Ordered Sig/Kalyn Route PRN Reason Start Time Stop Time Status Last Admin Dose Admin Acetaminophen (Tylenol) 650 mg Q4H PRN ORAL fever 10/11/16 07:45 11/10/16 07:44 Albuterol/ Ipratropium (DuoNeb 0.5-3(2.5)mg/3ml) 3 ml Q8HRT HHN 10/13/16 15:00 10/18/16 14:59 10/14/16 15:31 Calcitriol (Rocatrol) 0.25 mcg DAILY ORAL 10/11/16 09:00 11/10/16 08:59 10/14/16 09:09 Dextrose (Dextrose 50%) STAT PRN IV Hypoglycemia 10/11/16 07:45 11/10/16 07:44 Diphenhydramine HCl (Benadryl) 25 mg Q6H PRN ORAL Itching/Pruritis 10/11/16 07:45 11/10/16 07:44 Furosemide (Lasix) 20 mg DAILY ORAL 10/15/16 09:00 11/10/16 08:59 Multi-Ingredient Ointment (Eucerin) 1 applic BID TOPIC 10/12/16 18:00 10/17/16 17:59 10/14/16 17:29 Ondansetron HCl (Zofran) 4 mg Q6H PRN IVP Nausea & Vomiting 10/11/16 07:45 11/10/16 07:44 Pantoprazole (Protonix) 40 mg EVERY 12 HOURS ORAL 10/12/16 09:30 11/11/16 09:29 10/14/16 09:09 Polyethylene Glycol (Miralax) 17 gm HSPRN PRN ORAL Constipation 10/11/16 07:45 11/10/16 07:44 Sevelamer Carbonate (Renvela) 800 mg THREE TIMES A DAY ORAL 10/11/16 09:00 11/10/16 08:59 10/14/16 17:41 Sildenafil Citrate (Revatio) 20 mg THREE TIMES A DAY ORAL 10/11/16 09:00 11/10/16 08:59 10/14/16 17:40 Sucralfate (Carafate) 1 gm FOUR TIMES A DAY ORAL 10/12/16 09:30 11/11/16 09:29 10/14/16 17:40 LINDSEY HILL M.D. Oct 14, 2016 19:09
--- NOTE | 2016-10-14 19:30 | Cardiology Progress Note ---
Assessment/Plan Assessment/Plan 1. Acute on chronic respiratory failure. 2. Anemia. 3. Probable diastolic heart failure. 4. Permanent atrial fibrillation. 5. Gastrointestinal bleeding history, now off anticoagulation. 6. Renal insufficiency. has sig sob soem sputum has sig edema will switch to iv diuretic for few dasy noted low cr cl cxr in am d/w staff Subjective Cardiovascular: Denies: chest pain, lightheadedness Respiratory: Reports: cough, shortness of breath, sputum Gastrointestinal/Abdominal: Denies: abdominal pain Genitourinary: Denies: burning Objective Last 24 Hour Vital Signs Date Time Temp Pulse Resp B/P (MAP) Pulse Ox O2 Delivery O2 Flow Rate FiO2 10/14/16 19:20 108 19 35 10/14/16 16:33 85 10/14/16 16:00 98.4 83 19 130/70 98 Mechanical Ventilator 35 10/14/16 16:00 35 10/14/16 15:43 84 14 98 Mechanical Ventilator 35 10/14/16 15:43 35 10/14/16 15:32 81 18 100 Mechanical Ventilator 35 10/14/16 15:28 80 18 35 10/14/16 12:59 79 16 35 10/14/16 12:00 70 10/14/16 12:00 98.2 70 14 116/62 99 Mechanical Ventilator 35 10/14/16 12:00 35 10/14/16 11:21 81 16 35 10/14/16 09:21 79 16 35 10/14/16 08:00 35 10/14/16 08:00 83 10/14/16 08:00 98.7 76 14 115/66 99 Mechanical Ventilator 35 10/14/16 07:33 35 10/14/16 07:33 77 16 100 Mechanical Ventilator 35 10/14/16 07:23 78 16 35 10/14/16 07:23 78 16 100 Mechanical Ventilator 35 10/14/16 05:15 66 14 35 10/14/16 04:00 35 10/14/16 04:00 97.7 70 14 106/64 99 Mechanical Ventilator 35 10/14/16 04:00 65 10/14/16 03:25 68 14 35 10/14/16 01:03 70 14 35 10/14/16 00:00 97.6 68 18 101/62 99 Mechanical Ventilator 35 10/14/16 00:00 67 10/13/16 23:12 66 14 100 Mechanical Ventilator 35 10/13/16 22:52 35 10/13/16 22:52 73 14 100 Mechanical Ventilator 35 10/13/16 22:50 73 14 35 10/13/16 21:22 82 17 35 10/13/16 20:00 98.0 78 18 110/57 99 Mechanical Ventilator 10/13/16 20:00 93 10/13/16 20:00 35 10/13/16 19:29 73 15 35 General Appearance: no apparent distress, alert, on vent, patient on isolation Neck: no JVD Cardiovascular: irregularly irregular Respiratory/Chest: decreased breath sounds Abdomen: normal bowel sounds, non tender, soft Extremities: moderate edema Intake and Output 10/14/16 10/15/16 19:00 07:00 Intake Total 770 ml Output Total 250 ml Balance 520 ml Intake Oral 420 ml IV Total 350 ml Output Urine Total 250 ml Laboratory Tests Test 10/14/16 03:46 White Blood Count 5.7 K/UL (4.8-10.8) Red Blood Count 2.85 M/UL (4.20-5.40) L Hemoglobin 8.0 G/DL (12.0-16.0) L Hematocrit 25.8 % (37.0-47.0) L Mean Corpuscular Volume 90 FL (80-99) Mean Corpuscular Hemoglobin 27.9 PG (27.0-31.0) Mean Corpuscular Hemoglobin Concent 30.9 G/DL (32.0-36.0) L Red Cell Distribution Width 13.8 % (11.6-14.8) Platelet Count 171 K/UL (150-450) Mean Platelet Volume 5.5 FL (6.5-10.1) L Neutrophils (%) (Auto) 68.7 % (45.0-75.0) Lymphocytes (%) (Auto) 17.7 % (20.0-45.0) L Monocytes (%) (Auto) 7.4 % (1.0-10.0) Eosinophils (%) (Auto) 5.5 % (0.0-3.0) H Basophils (%) (Auto) 0.7 % (0.0-2.0) Prothrombin Time 12.5 SEC (9.30-11.50) H Prothromb Time International Ratio 1.2 (0.9-1.1) H Activated Partial Thromboplast Time 29 SEC (23-33) Sodium Level 138 mEQ/L (135-145) Potassium Level 3.5 mEQ/L (3.4-4.9) Chloride Level 97 mEQ/L (98-107) L Carbon Dioxide Level 27 mEQ/L (20-30) Anion Gap 14 (5-15) Blood Urea Nitrogen 69 mg/dL (7-23) H Creatinine 2.9 mg/dL (0.5-0.9) H Estimat Glomerular Filtration Rate mL/min (>60) Glucose Level 108 mg/dL (74-106) H Calcium Level 8.4 mg/dL (8.6-10.2) L Phosphorus Level 3.6 mg/dL (2.5-4.8) Magnesium Level 1.6 mg/dL (1.7-2.5) L Total Bilirubin 0.4 mg/dL (0.0-1.2) Aspartate Amino Transf (AST/SGOT) 10 U/L (5-40) Alanine Aminotransferase (ALT/SGPT) 5 U/L (3-33) Alkaline Phosphatase 63 U/L (35-104) Total Protein 6.0 g/dL (6.6-8.7) L Albumin 2.5 g/dL (3.5-5.2) L Globulin 3.5 g/dL Albumin/Globulin Ratio 0.7 (1.0-2.7) L BRIANA TELLES Oct 14, 2016 19:30
[2016-10-14 19:58] VITALS: BP 121/69
[2016-10-15] VITALS: BP 127/77
[2016-10-15 03:37] VITALS: BP 105/59
[2016-10-15 04:58] LABS: EOSINOPHILS % (AUTO) 5.2 % (0.0-3.0); LYMPHOCYTES % (AUTO) 15.6 % (20.0-45.0); MEAN CORPUSCULAR HEMOGLOBIN 29.2 PG (27.0-31.0); MEAN CORPUSCULAR HGB CONC 31.8 G/DL (32.0-36.0); MEAN CORPUSCULAR VOLUME 92 FL (80-99); MEAN PLATELET VOLUME 5.5 FL (6.5-10.1); MONOCYTES % (AUTO) 9.9 % (1.0-10.0); NEUTROPHILS % (AUTO) 68.4 % (45.0-75.0); PLATELET COUNT 203 K/UL (150-450); RED BLOOD COUNT 2.88 M/UL (4.20-5.40); RED CELL DISTRIBUTION WIDTH 13.8 % (11.6-14.8); WHITE BLOOD COUNT 6.4 K/UL (4.8-10.8)
[2016-10-15 05:03] LABS: INR 1.1 (0.9-1.1); PROTHROMBIN TIME 11.8 SEC (9.30-11.50)
[2016-10-15 05:23] LABS: ALANINE AMINOTRANSFERASE 5 U/L (3-33); ALBUMIN/GLOBULIN RATIO 0.7 (1.0-2.7); ANION GAP 11 (5-15); ASPARTATE AMINO TRANSFERASE 10 U/L (5-40); CALCIUM 8.8 mg/dL (8.6-10.2); CARBON DIOXIDE 29 mEQ/L (20-30); CHLORIDE 98 mEQ/L (98-107); HEMOLYSIS 2; POTASSIUM 3.7 mEQ/L (3.4-4.9); SODIUM 138 mEQ/L (135-145); TOTAL PROTEIN 6.9 g/dL (6.6-8.7)
[2016-10-15 05:54] LABS: MAGNESIUM 1.8 mg/dL (1.7-2.5); PHOSPHORUS 4.4 mg/dL (2.5-4.8)
[2016-10-15] MEDS: DuoNeb 0.5-3(2.5)mg/3ml neb HHN SCH ×2 (06:48→15:03)
[2016-10-15 08:00] VITALS: BP 96/56
[2016-10-15] MEDS ORDERED: Revatio 20mg tab ORAL SCH (09:00)
[2016-10-15] MEDS: Calcitriol 0.25mcg Cap ORAL SCH (09:04)
[2016-10-15] MEDS: Revatio 20mg tab ORAL SCH ×2 (09:04→13:20)
[2016-10-15] MEDS: Sucralfate 1gm tab ORAL SCH ×2 (09:04→13:20)
[2016-10-15] MEDS: Eucerin Cream 15gm TOPIC SCH (09:05)
[2016-10-15 09:39] LABS: ABG PCO2 58.7 mmHg (35.0-45.0)
[2016-10-15 09:40] LABS: ABG ALLEN TEST POSITIVE; ABG BASE EXCESS 3.2
--- NOTE | 2016-10-15 09:42 | General Progress Note ---
Assessment/Plan Status: stable Status Narrative Cr unchanged Assessment/Plan CKD- and acute renal failure Acute respiratory failure s/p Trach Obese COPD , CHF, Diastolic MINA UTI Anemia GI Bleed, GI bleeding At Fib Pulm HTN Low B12 Plan; start EPO- check Iron panel Trach 09/20- adjust meds 24 h Urine CrCl and Protein- ordered previously ( CrCl 12) Optimize cardiac status- Monitor renal parameters and lytes- Avoid nephrotoxics Subjective ROS Limited/Unobtainable: Yes Allergies: Coded Allergies: AMOXICILLIN (Verified Allergy, Mild, RASH, 09/30/16) MORPHINE (Unverified Allergy, Unknown, 09/30/16) PENICILLINS (Unverified Allergy, Unknown, 09/30/16) Objective Last 24 Hour Vital Signs Date Time Temp Pulse Resp B/P (MAP) Pulse Ox O2 Delivery O2 Flow Rate FiO2 10/15/16 06:55 82 15 100 Mechanical Ventilator 35 10/15/16 06:47 35 10/15/16 06:46 95 15 100 Mechanical Ventilator 35 10/15/16 06:45 95 15 35 10/15/16 05:15 70 14 35 10/15/16 04:00 80 10/15/16 04:00 40 10/15/16 03:37 98.2 85 14 105/59 99 Mechanical Ventilator 40 10/15/16 03:06 78 15 35 10/15/16 01:10 87 15 35 10/15/16 00:00 98.2 85 17 127/77 98 Mechanical Ventilator 40 10/15/16 00:00 40 10/15/16 00:00 81 10/14/16 22:40 86 15 100 Mechanical Ventilator 35 10/14/16 22:30 35 10/14/16 22:30 90 17 98 Mechanical Ventilator 35 10/14/16 22:30 90 17 35 10/14/16 21:18 94 15 35 10/14/16 20:01 40 10/14/16 20:00 82 10/14/16 19:58 98.2 94 17 121/69 95 Mechanical Ventilator 40 10/14/16 19:20 108 19 35 10/14/16 16:33 85 10/14/16 16:00 98.4 83 19 130/70 98 Mechanical Ventilator 35 10/14/16 16:00 35 10/14/16 15:43 84 14 98 Mechanical Ventilator 35 10/14/16 15:43 35 10/14/16 15:32 81 18 100 Mechanical Ventilator 35 10/14/16 15:28 80 18 35 10/14/16 12:59 79 16 35 10/14/16 12:00 70 10/14/16 12:00 98.2 70 14 116/62 99 Mechanical Ventilator 35 10/14/16 12:00 35 10/14/16 11:21 81 16 35 Laboratory Tests 10/15/16 03:20: White Blood Count 6.4, Red Blood Count 2.88L, Hemoglobin 8.4L, Hematocrit 26.5L , Mean Corpuscular Volume 92, Mean Corpuscular Hemoglobin 29.2, Mean Corpuscular Hemoglobin Concent 31.8L, Red Cell Distribution Width 13.8, Platelet Count 203, Mean Platelet Volume 5.5L, Neutrophils (%) (Auto) 68.4, Lymphocytes (%) (Auto) 15.6L, Monocytes (%) (Auto) 9.9, Eosinophils (%) (Auto) 5.2H, Basophils (%) (Auto) 1.0, Prothrombin Time 11.8H, Prothromb Time International Ratio 1.1, Activated Partial Thromboplast Time 28, Sodium Level 138, Potassium Level 3.7, Chloride Level 98, Carbon Dioxide Level 29, Anion Gap 11, Blood Urea Nitrogen 70H, Creatinine 3.0H, Estimat Glomerular Filtration Rate , Glucose Level 119H, Calcium Level 8.8, Phosphorus Level 4.4, Magnesium Level 1.8, Total Bilirubin 0.3, Aspartate Amino Transf (AST/SGOT) 10, Alanine Aminotransferase (ALT/SGPT) 5, Alkaline Phosphatase 70, Pro-B-Type Natriuretic Peptide 63775V, Total Protein 6.9, Albumin 2.9L, Globulin 4.0, Albumin/Globulin Ratio 0.7L 10/15/16 09:27: Arterial Blood pH [Pending], Arterial Blood Partial Pressure CO2 [Pending], Arterial Blood Partial Pressure O2 [Pending], Arterial Blood HCO3 [Pending], Arterial Blood Oxygen Saturation [Pending], Arterial Blood Base Excess [Pending] , Mike Test [Pending] Height (Feet): 5 Height (Inches): 6.00 Weight (Pounds): 346 General Appearance: no apparent distress EENT: other Cardiovascular: normal rate Respiratory/Chest: decreased breath sounds Abdomen: soft FOULADIAN,COURTNEY Oct 15, 2016 09:42
--- NOTE | 2016-10-15 10:42 | Diagnostic Imaging Report ---
Indication: Dyspnea Comparison: 10/12/16 A single view chest radiograph was obtained. Findings: Interstitial edema is suspected with cardiomegaly. Tracheostomy noted. Impression: Mild interstitial edema.
[2016-10-15 10:48] LABS: FERRITIN 585 ng/mL (13-150)
[2016-10-15 11:06] LABS: HEMOLYSIS 2; IRON 28 ug/dL (37-145); TOTAL IRON BINDING CAPACITY 165 ug/dL (250-400)
[2016-10-15 12:00] VITALS: BP 126/47
--- NOTE | 2016-10-15 12:04 | Pulmonology Progress Note ---
Assessment/Plan Problems: (1) Acute GI bleeding (2) Chronic respiratory failure (3) CHF (congestive heart failure) (4) Anemia (5) ATN (acute tubular necrosis) (6) Morbid obesity (7) Atrial fibrillation, chronic Assessment/Plan h/h stable f/u GI recommendation f/u bun/creatinine decrease IV fluids check h/h all notes reviewed. cardio note appreciated dc to [facility] today Subjective ROS Limited/Unobtainable: No Constitutional: Reports: no symptoms HEENT: Repors: no symptoms Respiratory: Reports: no symptoms Allergies: Coded Allergies: AMOXICILLIN (Verified Allergy, Mild, RASH, 09/30/16) MORPHINE (Unverified Allergy, Unknown, 09/30/16) PENICILLINS (Unverified Allergy, Unknown, 09/30/16) Objective Last 24 Hour Vital Signs Date Time Temp Pulse Resp B/P (MAP) Pulse Ox O2 Delivery O2 Flow Rate FiO2 10/15/16 10:47 69 15 30 10/15/16 09:33 30 10/15/16 09:15 74 14 35 10/15/16 08:00 78 10/15/16 08:00 40 10/15/16 08:00 97.9 66 18 96/56 100 Mechanical Ventilator 40 10/15/16 06:55 82 15 100 Mechanical Ventilator 35 10/15/16 06:47 35 10/15/16 06:46 95 15 100 Mechanical Ventilator 35 10/15/16 06:45 95 15 35 10/15/16 05:15 70 14 35 10/15/16 04:00 80 10/15/16 04:00 40 10/15/16 03:37 98.2 85 14 105/59 99 Mechanical Ventilator 40 10/15/16 03:06 78 15 35 10/15/16 01:10 87 15 35 10/15/16 00:00 98.2 85 17 127/77 98 Mechanical Ventilator 40 10/15/16 00:00 40 10/15/16 00:00 81 10/14/16 22:40 86 15 100 Mechanical Ventilator 35 10/14/16 22:30 35 10/14/16 22:30 90 17 98 Mechanical Ventilator 35 10/14/16 22:30 90 17 35 10/14/16 21:18 94 15 35 10/14/16 20:01 40 10/14/16 20:00 82 10/14/16 19:58 98.2 94 17 121/69 95 Mechanical Ventilator 40 10/14/16 19:20 108 19 35 10/14/16 16:33 85 10/14/16 16:00 98.4 83 19 130/70 98 Mechanical Ventilator 35 10/14/16 16:00 35 10/14/16 15:43 84 14 98 Mechanical Ventilator 35 10/14/16 15:43 35 10/14/16 15:32 81 18 100 Mechanical Ventilator 35 10/14/16 15:28 80 18 35 10/14/16 12:59 79 16 35 General Appearance: WD/WN HEENT: normocephalic, atraumatic Respiratory/Chest: chest wall non-tender, lungs clear Breasts: no masses Cardiovascular: normal peripheral pulses, normal rate Abdomen: normal bowel sounds, soft, non tender Genitourinary: normal external genitalia Extremities: no cyanosis Skin: no rash, no ulcers Neurologic/Psychiatric: no motor/sensory deficits Lymphatic: no neck adenopathy Laboratory Tests 10/15/16 03:20: White Blood Count 6.4, Red Blood Count 2.88L, Hemoglobin 8.4L, Hematocrit 26.5L , Mean Corpuscular Volume 92, Mean Corpuscular Hemoglobin 29.2, Mean Corpuscular Hemoglobin Concent 31.8L, Red Cell Distribution Width 13.8, Platelet Count 203, Mean Platelet Volume 5.5L, Neutrophils (%) (Auto) 68.4, Lymphocytes (%) (Auto) 15.6L, Monocytes (%) (Auto) 9.9, Eosinophils (%) (Auto) 5.2H, Basophils (%) (Auto) 1.0, Prothrombin Time 11.8H, Prothromb Time International Ratio 1.1, Activated Partial Thromboplast Time 28, Sodium Level 138, Potassium Level 3.7, Chloride Level 98, Carbon Dioxide Level 29, Anion Gap 11, Blood Urea Nitrogen 70H, Creatinine 3.0H, Estimat Glomerular Filtration Rate , Glucose Level 119H, Calcium Level 8.8, Phosphorus Level 4.4, Magnesium Level 1.8, Total Bilirubin 0.3, Aspartate Amino Transf (AST/SGOT) 10, Alanine Aminotransferase (ALT/SGPT) 5, Alkaline Phosphatase 70, Pro-B-Type Natriuretic Peptide 61041S, Total Protein 6.9, Albumin 2.9L, Globulin 4.0, Albumin/Globulin Ratio 0.7L 10/15/16 09:27: Arterial Blood pH 7.320L, Arterial Blood Partial Pressure CO2 58.7*H, Arterial Blood Partial Pressure O2 137.7H, Arterial Blood HCO3 30.0H, Arterial Blood Oxygen Saturation 98.7H, Arterial Blood Base Excess 3.2, Mike Test Positive 10/15/16 10:05: Iron Level 28L, Total Iron Binding Capacity 165L, Percent Iron Saturation 17, Unsaturated Iron Binding 137, Ferritin 585H, Vitamin B12 Level 1928H, Folate [ Pending] Current Medications Medications (Trade) Dose Ordered Sig/Kalyn Route PRN Reason Start Time Stop Time Status Last Admin Dose Admin Acetaminophen (Tylenol) 650 mg Q4H PRN ORAL fever 10/11/16 07:45 11/10/16 07:44 Albuterol/ Ipratropium (DuoNeb 0.5-3(2.5)mg/3ml) 3 ml Q8HRT HHN 10/13/16 15:00 10/18/16 14:59 10/15/16 06:48 Calcitriol (Rocatrol) 0.25 mcg DAILY ORAL 10/11/16 09:00 11/10/16 08:59 10/15/16 09:04 Dextrose (Dextrose 50%) STAT PRN IV Hypoglycemia 10/11/16 07:45 11/10/16 07:44 Diphenhydramine HCl (Benadryl) 25 mg Q6H PRN ORAL Itching/Pruritis 10/11/16 07:45 11/10/16 07:44 Epoetin Santos (Procrit (for non ESRD use)) 10,000 units TUE-TUE-TUE SUBQ 10/15/16 21:00 11/14/16 20:59 Furosemide (Lasix) 20 mg DAILY ORAL 10/15/16 09:00 11/10/16 08:59 10/15/16 09:04 Multi-Ingredient Ointment (Eucerin) 1 applic BID TOPIC 10/12/16 18:00 10/17/16 17:59 10/15/16 09:05 Ondansetron HCl (Zofran) 4 mg Q6H PRN IVP Nausea & Vomiting 10/11/16 07:45 11/10/16 07:44 Pantoprazole (Protonix) 40 mg EVERY 12 HOURS ORAL 10/12/16 09:30 11/11/16 09:29 10/15/16 09:04 Polyethylene Glycol (Miralax) 17 gm HSPRN PRN ORAL Constipation 10/11/16 07:45 11/10/16 07:44 Sevelamer Carbonate (Renvela) 800 mg THREE TIMES A DAY ORAL 10/11/16 09:00 11/10/16 08:59 10/15/16 09:04 Sildenafil Citrate (Revatio) 20 mg THREE TIMES A DAY ORAL 10/11/16 09:00 11/10/16 08:59 10/15/16 09:04 Sucralfate (Carafate) 1 gm FOUR TIMES A DAY ORAL 10/12/16 09:30 11/11/16 09:29 10/15/16 09:04 ARASH MIRANDA Oct 15, 2016 12:04
--- NOTE | 2016-10-15 15:19 | General Progress Note ---
Assessment/Plan Assessment/Plan Assessment - Recurrent UGIB due to diffuse gastritis combined with anticoagulation - s/p recent endoscopy on prior admission - Anemia (GI Bleed, CRF, Chronic Dz) - Renal failure - Resp failure Recommendations - PPI at BID dose - Carafate QID - lowest anticoagulation level, as feasible - monitor labs - Check and replace Iron - Advance PO diet - No plans for repeat Endoscopy, unless severe bleeding Subjective Allergies: Coded Allergies: AMOXICILLIN (Verified Allergy, Mild, RASH, 09/30/16) MORPHINE (Unverified Allergy, Unknown, 09/30/16) PENICILLINS (Unverified Allergy, Unknown, 09/30/16) Subjective Feels well No abd complaints tolerating liquids Objective Last 24 Hour Vital Signs Date Time Temp Pulse Resp B/P (MAP) Pulse Ox O2 Delivery O2 Flow Rate FiO2 10/15/16 13:14 71 15 30 10/15/16 12:00 30 10/15/16 12:00 98.0 74 17 126/47 99 Mechanical Ventilator 30 10/15/16 10:47 69 15 30 10/15/16 09:33 30 10/15/16 09:15 74 14 35 10/15/16 08:00 78 10/15/16 08:00 40 10/15/16 08:00 97.9 66 18 96/56 100 Mechanical Ventilator 40 10/15/16 06:55 82 15 100 Mechanical Ventilator 35 10/15/16 06:47 35 10/15/16 06:46 95 15 100 Mechanical Ventilator 35 10/15/16 06:45 95 15 35 10/15/16 05:15 70 14 35 10/15/16 04:00 80 10/15/16 04:00 40 10/15/16 03:37 98.2 85 14 105/59 99 Mechanical Ventilator 40 10/15/16 03:06 78 15 35 10/15/16 01:10 87 15 35 10/15/16 00:00 98.2 85 17 127/77 98 Mechanical Ventilator 40 10/15/16 00:00 40 10/15/16 00:00 81 10/14/16 22:40 86 15 100 Mechanical Ventilator 35 10/14/16 22:30 35 10/14/16 22:30 90 17 98 Mechanical Ventilator 35 10/14/16 22:30 90 17 35 10/14/16 21:18 94 15 35 10/14/16 20:01 40 10/14/16 20:00 82 10/14/16 19:58 98.2 94 17 121/69 95 Mechanical Ventilator 40 10/14/16 19:20 108 19 35 10/14/16 16:33 85 10/14/16 16:00 98.4 83 19 130/70 98 Mechanical Ventilator 35 10/14/16 16:00 35 10/14/16 15:43 84 14 98 Mechanical Ventilator 35 10/14/16 15:43 35 10/14/16 15:32 81 18 100 Mechanical Ventilator 35 10/14/16 15:28 80 18 35 Laboratory Tests 10/15/16 03:20: White Blood Count 6.4, Red Blood Count 2.88L, Hemoglobin 8.4L, Hematocrit 26.5L , Mean Corpuscular Volume 92, Mean Corpuscular Hemoglobin 29.2, Mean Corpuscular Hemoglobin Concent 31.8L, Red Cell Distribution Width 13.8, Platelet Count 203, Mean Platelet Volume 5.5L, Neutrophils (%) (Auto) 68.4, Lymphocytes (%) (Auto) 15.6L, Monocytes (%) (Auto) 9.9, Eosinophils (%) (Auto) 5.2H, Basophils (%) (Auto) 1.0, Prothrombin Time 11.8H, Prothromb Time International Ratio 1.1, Activated Partial Thromboplast Time 28, Sodium Level 138, Potassium Level 3.7, Chloride Level 98, Carbon Dioxide Level 29, Anion Gap 11, Blood Urea Nitrogen 70H, Creatinine 3.0H, Estimat Glomerular Filtration Rate , Glucose Level 119H, Calcium Level 8.8, Phosphorus Level 4.4, Magnesium Level 1.8, Total Bilirubin 0.3, Aspartate Amino Transf (AST/SGOT) 10, Alanine Aminotransferase (ALT/SGPT) 5, Alkaline Phosphatase 70, Pro-B-Type Natriuretic Peptide 88660Y, Total Protein 6.9, Albumin 2.9L, Globulin 4.0, Albumin/Globulin Ratio 0.7L 10/15/16 09:27: Arterial Blood pH 7.320L, Arterial Blood Partial Pressure CO2 58.7*H, Arterial Blood Partial Pressure O2 137.7H, Arterial Blood HCO3 30.0H, Arterial Blood Oxygen Saturation 98.7H, Arterial Blood Base Excess 3.2, Mike Test Positive 10/15/16 10:05: Iron Level 28L, Total Iron Binding Capacity 165L, Percent Iron Saturation 17, Unsaturated Iron Binding 137, Ferritin 585H, Vitamin B12 Level 1928H, Folate [ Pending] Height (Feet): 5 Height (Inches): 6.00 Weight (Pounds): 346 Objective Obese WW NCAT (+) trach CTA RR Soft obese tr edema BRETT DALE Oct 15, 2016 15:19
[2016-10-15] MEDS ORDERED: Epogen (for non ESRD use) SUBQ SCH (21:00)
[2016-10-16] MEDS ORDERED: ACETAMINOPHEN325 M1 ORAL (03:36)
[2016-10-16] MEDS ORDERED: DUONEB 0.5-3(2.53 ML HHN (03:36)
--- NOTE | 2016-10-18 09:53 | Discharge Summary ---
Discharge Summary Hospital Course Date of Admission Oct 11, 2016 at 01:53 Date of Discharge Oct 15, 2016 at 16:34 Admitting Diagnosis GI bleed. COPD HPI Kamille Chrsitopher is a 76 year old female who was admitted on Oct 11, 2016 at 01:53 for Gastrointestinal Bleed/Chronic Obstructive Hospital Course dc summary #[id number] Discharge Medications Continued Medications: Acetaminophen* (Acetaminophen*) 160 Mg/5 Ml Solution 650 MG ORAL Q4HR PRN for Fever/Headache/Mild Pain, ML Calcitriol (Calcitriol) 0.25 Mcg Capsule 0.25 MCG ORAL DAILY, CAP Docusate Sodium* (Docusate Sodium*) 100 Mg Capsule 100 MG ORAL TWICE A DAY, CAP Folic Acid* (Folic Acid*) 1 Mg Tablet 1 MG ORAL DAILY, TAB Furosemide* (Lasix*) 40 Mg Tablet 20 MG ORAL TWICE A DAY, TAB 0 Refills Gabapentin* (Gabapentin*) 600 Mg Tablet 600 MG ORAL TWICE A DAY, TAB Lactobacillus Acidophilus (Probiotic) 1 Each Capsule 1 EACH PO DAILY, CAP Polyethylene Glycol 3350* (Miralax*) 17 Gm Powd.pack 17 GM ORAL DAILY, PACKET Sevelamer Carbonate (Renvela) 800 Mg Tablet 800 MG ORAL THREE TIMES A DAY for 30 Days, TAB Sildenafil Citrate (Revatio) 20 Mg Tablet 20 MG ORAL THREE TIMES A DAY for 30 Days, TAB Discharge Condition Upon Discharge: stable Discharge Disposition Patient was discharged to SNF/Subacute Facility(03) Discharge Diagnoses: Rojas (Bebeto)Jaquelin NP Oct 18, 2016 09:53
--- NOTE | 2016-10-19 01:30 | Discharge Summary 2 SIG ---
DATE OF ADMISSION: 10/11/2016 DATE OF DISCHARGE: 10/15/2016 REASON FOR ADMISSION: This is a 76-year-old female with history of chronic respiratory failure ventilator-dependent, GI bleeding, anemia, COPD, severe pulmonary hypertension, permanent atrial fibrillation, CHF, chronic kidney disease, morbid obesity, obstructive sleep apnea, and hyperlipidemia, who presented to [facility]. The patient on anticoagulation and developed coffee-ground emesis and respiratory distress. ABG revealed evidence of acidosis, hypercapnia, and hypoxemia. The patient was afebrile. WBC was slightly elevated at 13.5. Hemoglobin and hematocrit at 9.5 and 31.2 respectively. INR 1.1. Troponin negative. BUN 63 and creatinine 2.7 consistent with known history of chronic kidney disease. Chest x-ray revealed mild congestion. The patient was admitted for further management. ADMITTING DIAGNOSES: 1. Acute on chronic hypercapnic respiratory failure. 2. Chronic respiratory failure. 3. Tracheostomy status. 4. Hematemesis. 5. Gastrointestinal bleeding. 6. Anemia. 7. Chronic obstructive pulmonary disease. 8. Severe pulmonary hypertension. 9. Permanent atrial fibrillation. 10. Congestive heart failure. 11. Hyperlipidemia. 12. Chronic kidney disease. 13. Morbid obesity. 14. Chronic lymphedema of bilateral lower extremity. HOSPITAL COURSE: The patient admitted to direct observational unit. Ventilator support provided. Tracheostomy care provided. Pulmonary toilet provided as needed. The patient was followed up with ABG. Settings were titrated as needed. Chest x-ray revealed mild interstitial congestion. Followup chest x-ray without significant changes, but no evidence of acute infection. Blood culture negative. GI consult was requested. GI had seen and evaluated the patient. The patient with recurrent GI bleeding likely due to the anticoagulation secondary to permanent atrial fibrillation. The patient had undergone EGD on 10/04/2016, which revealed severe gastritis. GI closely followed, but no plans to repeat EGD. According to GI, the patient was started on proton-pump inhibitor twice a day as well as Carafate q.i.d. GI recommended lowest anticoagulation possible and advanced diet. Antiemetic provided as needed. Anticoagulation discontinued for now. The patient was anemic and required 2 units of packed red blood cell transfusion. Anemia workup revealed anemia of chronic renal disease. The patient was started on Epogen as per nephrology who closely followed the patient along with sales operations assistant and customer security clerk. Diesel Mechanic Helper stated that the patient had permanent atrial fibrillation with overall controlled heart rate. Per sales operations assistant, CHF with likely diastolic component. The patient on previous echo demonstrated preserved ejection fraction. The patient was started on IV Lasix to optimize cardiac status; however, renal parameters were closely monitored and the patient was subsequently switched to oral. For one day, Lasix was on hold and then switched to oral Lasix because the creatinine was trending up. Per nephrology, the patient's renal parameters and electrolytes were closely monitored. Nephrotoxics were avoided. Decating Machine Operator cleared for discharge after cardiac status stabilized. Respiratory status stable. No signs of respiratory distress on current ventilator setting. Lower extremities were elevated while in the bed. No evidence of cellulitis. BiPAP provided as needed at nighttime if the patient was compliant for obstructive sleep apnea. Venous duplex of bilateral lower extremity was negative. Blood culture negative. The patient was stable for discharge. Again, no anticoagulation, no heparin, and no aspirin. Prior to discharge, hemoglobin was 8.4 and hematocrit 26.5. DISCHARGE MEDICATIONS: See medication reconciliation list. DISCHARGE INSTRUCTIONS: [facility]. FOLLOWUP: Follow up with medical doctor and customer security clerk at the facility. FINAL DIAGNOSES: 1. Acute on chronic hypercapnic respiratory failure, resolved. 2. Chronic respiratory failure. 3. Tracheostomy status. 4. Recurrent upper gastrointestinal bleeding secondary to diffuse gastritis and anticoagulation. 5. Status post esophagogastroduodenoscopy on 10/04/2016 with evidence of severe gastritis. 6. Anemia, requiring blood transfusion. 7. Anemia of chronic disease. 8. Chronic obstructive pulmonary disease. 9. Probable diastolic congestive heart failure. 10. Severe pulmonary hypertension. 11. Permanent atrial fibrillation. 12. Acute renal failure on chronic kidney disease. 13. Morbid obesity. 14. Obstructive sleep apnea. 15. Chronic lymphedema, bilateral lower extremity. Manny Nolan M.D. I have been assigned to dictate discharge summary on this account and I was not involved in the patient's management. Jaquelin Xie N.P. (vanchtein) DR: Charleen JOB#: [id number] CC:
== END 2016-10-15 16:34 | DRG 207 ==
LOC: EDBD 23:51 → EMR 10-11 00:10 → 2W 10-11 01:53 → EDBEDREQ 10-11 04:59
PROC: 5A1955Z Respiratory Ventilation, Greater than 96 Consecutive Hours (ICD-10-PCS; principal; 2016-10-11)
PROC: 30233N1 Transfusion of Nonautologous Red Blood Cells into Peripheral Vein, Percutaneous Approach (ICD-10-PCS; 2016-10-12)
DX: J96.22 Acute and chronic respiratory failure with hypercapnia (principal); N17.0 Acute kidney failure with tubular necrosis; K29.61 Other gastritis with bleeding; Z68.43 Body mass index [BMI] 50.0-59.9, adult; I27.2 Other secondary pulmonary hypertension; I50.30 Unspecified diastolic (congestive) heart failure; Z43.0 Encounter for attention to tracheostomy; J44.9 Chronic obstructive pulmonary disease, unspecified; N18.9 Chronic kidney disease, unspecified; E66.01 Morbid (severe) obesity due to excess calories; Z88.6 Allergy status to analgesic agent; Z88.1 Allergy status to other antibiotic agents; Z88.0 Allergy status to penicillin; I48.2 Chronic atrial fibrillation; E78.5 Hyperlipidemia, unspecified; I12.9 Hypertensive chronic kidney disease with stage 1 through stage 4 chronic kidney disease, or unspecified chronic kidney disease; E11.22 Type 2 diabetes mellitus with diabetic chronic kidney disease; G47.33 Obstructive sleep apnea (adult) (pediatric); I89.0 Lymphedema, not elsewhere classified; D63.1 Anemia in chronic kidney disease; Z87.891 Personal history of nicotine dependence; Z79.01 Long term (current) use of anticoagulants
CPT/HCPCS: 36415; 36600; 51702; 71010; 80053; 81003; 82550; 82553; 82607; 82728; 82746; 82803; 83540; 83550; 83605; 83735; 83880; 84100; 84484; 85007; 85025; 85610; 85730; 86850; 86900; 86901; 86920; 87040; 87081; 93005; 93970; 94002; 94003; 94640; J2405; J2765; J7620

== ENCOUNTER 2016-10-15 23:48 | Inpatient (IN) | payer MEDICARE, MEDICAID ==
[~2016-10-15] VITALS: Ht 167.6 cm; Wt 165.1 kg
[2016-10-16] VITALS (9 sets, daily range): BP systolic 84–147; BP diastolic 40–79
[2016-10-16] MEDS ORDERED: Naloxone 1mg/ml 2ml IVP ONE
[2016-10-16 00:14] LABS: ABG PCO2 45.9 mmHg (35.0-45.0)
[2016-10-16 00:15] LABS: ABG ALLEN TEST POSITIVE; ABG BASE EXCESS 1.1
[2016-10-16 00:18] LABS: APPEARANCE,URINE CLOUDY; BASOPHILS % (AUTO) 0.6 % (0.0-2.0); EOSINOPHILS % (AUTO) 4.5 % (0.0-3.0); KETONES,URINE NEGATIVE (NEGATIVE); LEUKOCYTE ESTERASE ,URINE 3+ (NEGATIVE); LYMPHOCYTES % (AUTO) 18.4 % (20.0-45.0); MEAN CORPUSCULAR HGB CONC 33.1 G/DL (32.0-36.0); MEAN CORPUSCULAR VOLUME 90 FL (80-99); MEAN PLATELET VOLUME 5.8 FL (6.5-10.1); MONOCYTES % (AUTO) 7.9 % (1.0-10.0); NEUTROPHILS % (AUTO) 68.6 % (45.0-75.0); NITRITE,URINE NEGATIVE (NEGATIVE); PH,URINE 5 (4.5-8.0); PLATELET COUNT 214 K/UL (150-450); PROTEIN,URINE 3+ (NEGATIVE); RED BLOOD COUNT 3.18 M/UL (4.20-5.40); RED CELL DISTRIBUTION WIDTH 13.7 % (11.6-14.8); UROBILINOGEN,URINE NORMAL MG/DL (0.0-1.0); WHITE BLOOD COUNT 6.4 K/UL (4.8-10.8)
[2016-10-16 00:25] LABS: BACTERIA,URINE MANY /HPF; RBC,URINE TNTC /HPF (0 - 2); SQUAMOUS EPITHELIAL CELL,UR FEW /LPF (NONE/OCC); WBC,URINE TNTC /HPF (0 - 2); YEAST,URINE MANY /HPF
[2016-10-16 00:35] LABS: ANION GAP 13 (5-15); CALCIUM 8.7 mg/dL (8.6-10.2); CARBON DIOXIDE 28 mEQ/L (20-30); CHLORIDE 97 mEQ/L (98-107); CREATININE 3.1 mg/dL (0.5-0.9); HEMOLYSIS 0; POTASSIUM 3.5 mEQ/L (3.4-4.9); SODIUM 138 mEQ/L (135-145)
[2016-10-16 00:36] LABS: TROPONIN I < 0.30 ng/mL (<=0.30)
[2016-10-16] MEDS ORDERED: Ertapenem 1 GM in NS 55 ML IV ONE (01:15)
[2016-10-16] MEDS ORDERED: Ertapenem (INVanz) Inj ONE (01:44)
--- NOTE | 2016-10-16 02:09 | Emergency Room Report ---
History of Present Illness General Chief Complaint: Altered Level of Consciousness Source: Medical Record, EMS Present Illness HPI This is a 76-year-old morbidly obese female with history of respiratory failure with tracheostomy. She was just discharged from this hospital today. She was sent here for altered mental status. She seemed to be more sedated and hard to arouse. There is no focal deficit. No fever. No vomiting. No other complaint. History limited because of patient's condition. Allergies: Coded Allergies: AMOXICILLIN (Verified Allergy, Mild, RASH, 09/30/16) MORPHINE (Unverified Allergy, Unknown, 09/30/16) PENICILLINS (Unverified Allergy, Unknown, 09/30/16) Patient History Past Medical History: see triage record, old chart reviewed Past Surgical History: other Pertinent Family History: none Social History: Denies: smoking Now: No Immunizations: other Reviewed Nursing Documentation: PMH: Agreed, PSxH: Agreed Nursing Documentation-PMH Hx Cardiac Problems: Yes - ANEMIA, HYPERKALEMIA, HYPERLIPIDEMIA Hx Hypertension: Yes - PAROXYSMAL AFIB, PLEURAL EFFUSION, CHF Hx COPD: Yes - ARF WITH HYPERCAPNIA, DYSPHAGIA,OBSTRUCTIVE SLEEP APNEA Hx Diabetes: Yes Hx Cancer: Yes Hx Gastrointestinal Problems: Yes - GERD, CKD, OBESITY, ACUTE KIDNEY FAILURE Hx Dialysis: Yes Hx Neurological Problems: Yes Hx Seizures: Yes Review of Systems Constitutional: Reports: weakness Eye: Denies: eye pain, blurred vision ENT: Denies: ear pain, nose congestion, throat swelling Respiratory: Denies: cough, shortness of breath Cardiovascular: Denies: chest pain, palpitations Gastrointestinal: Denies: abdominal pain, diarrhea, nausea, vomiting Musculoskeletal: Denies: back pain, joint pain Skin: Denies: rash Neurological: Denies: headache, numbness Endocrine: Denies: increased thirst, increased urine Hematologic/Lymphatic: Denies: easy bruising All Other Systems: negative except mentioned in HPI Physical Exam Vital Signs Date Time Temp Pulse Resp B/P (MAP) Pulse Ox O2 Delivery O2 Flow Rate FiO2 10/15/16 23:40 98.4 87 113/54 100 Mechanical Ventilator 100 10/16/16 00:17 14 vitals normal Sp02 EP Interpretation: reviewed, normal General Appearance: lethargic, obese, Chronically Ill Head: normocephalic, atraumatic Eyes: bilateral eye PERRL, bilateral eye EOMI ENT: hearing grossly normal, normal pharynx Neck: full range of motion, supple, no meningismus, tracheotomy Respiratory: chest non-tender, lungs clear, normal breath sounds Cardiovascular #1: regular rate, rhythm, no murmur Gastrointestinal: normal bowel sounds, non tender, no mass, no organomegaly, no bruit, non-distended Musculoskeletal: back normal, normal range of motion Skin: warm/dry Medical Decision Making Diagnostic Impression: Primary Impression: Encephalopathy acute Additional Impressions: UTI due to extended-spectrum beta lactamase (ESBL) producing Escherichia coli Morbid obesity with BMI of 50.0-59.9, adult Anemia Qualified Codes: D64.9 - Anemia, unspecified Proteinuria Qualified Codes: R80.9 - Proteinuria, unspecified ER Course Patient with an altered mental status. I gave her Narcan which seemed to wake her up a little bit. She's now back to baseline. Differential include mucus plugging, CO2 retention, seizure, TIA/CVA to name a few. Notice any bleed in a CT scan. Chest x-ray at baseline. She grew out Escherichia coli which is multidrug-resistant. I place her on ertapenem. She has no reaction to this drug. I discussed the case with Dr. Bess who will admit. Lab Results Impression labs are at baseline EKG Diagnostic Results Rate: normal Rhythm: NSR ST Segments: no acute changes Rhythm Strip Diag. Results Rhythm Strip Time: 02:08 EP Interpretation: yes Rate: 77 Rhythm: NSR, no PVC's, no ectopy Chest X-Ray Diagnostic Results Chest X-Ray Diagnostic Results : Chest X-Ray Ordered: Yes # of Views/Limited/Complete: 1 View Indication: Shortness of Breath EP Interpretation: Yes Interpretation: no consolidation, no effusion, no pneumothorax, no acute cardiopulmonary disease Impression: No acute disease Electronically Signed by: Electronically signed by Ted Gilman MD CT/MRI/US Diagnostic Results CT/MRI/US Diagnostic Results : Imaging Test Ordered: CT head Impression read by radiologist. Atrophy. Negative. Last Vital Signs Date Time Temp Pulse Resp B/P (MAP) Pulse Ox O2 Delivery O2 Flow Rate FiO2 10/16/16 01:55 98.0 78 18 120/79 100 Mechanical Ventilator 100 Referrals: ARASH MIRANDA (PCP) TED GILMAN M.D. Oct 16, 2016 02:09
[2016-10-16] MEDS ORDERED: ACETAMINOPHEN325 M1 ORAL (03:36)
[2016-10-16] MEDS ORDERED: DUONEB 0.5-3(2.53 ML HHN (03:36)
[2016-10-16] MEDS ORDERED: Ertapenem 1 GM in NS 55 ML IVPB SCH (05:30)
[2016-10-16] MEDS ORDERED: Zolpidem 5mg tab ORAL PRN (06:00)
[2016-10-16] MEDS ORDERED: Miralax 17gm pkt ORAL PRN (06:00)
[2016-10-16] MEDS ORDERED: Mylanta II UD 30ml ORAL PRN (06:00)
[2016-10-16 07:09] LABS: BASOPHILS % (AUTO) 0.9 % (0.0-2.0); EOSINOPHILS % (AUTO) 2.5 % (0.0-3.0); MEAN CORPUSCULAR HEMOGLOBIN 29.9 PG (27.0-31.0); MEAN CORPUSCULAR HGB CONC 33.3 G/DL (32.0-36.0); MEAN CORPUSCULAR VOLUME 90 FL (80-99); MEAN PLATELET VOLUME 5.6 FL (6.5-10.1); MONOCYTES % (AUTO) 7.3 % (1.0-10.0); NEUTROPHILS % (AUTO) 80.2 % (45.0-75.0); PLATELET COUNT 196 K/UL (150-450); RED BLOOD COUNT 2.97 M/UL (4.20-5.40); RED CELL DISTRIBUTION WIDTH 13.4 % (11.6-14.8); WHITE BLOOD COUNT 6.6 K/UL (4.8-10.8)
[2016-10-16 07:30] LABS: ALANINE AMINOTRANSFERASE 5 U/L (3-33); ALBUMIN/GLOBULIN RATIO 0.7 (1.0-2.7); ANION GAP 13 (5-15); ASPARTATE AMINO TRANSFERASE 11 U/L (5-40); CALCIUM 8.7 mg/dL (8.6-10.2); CARBON DIOXIDE 27 mEQ/L (20-30); CHLORIDE 97 mEQ/L (98-107); CHOLESTEROL 89 mg/dL (< 200); CHOLESTEROL/HDL RATIO 2.3 (3.3-4.4); CREATININE 3.2 mg/dL (0.5-0.9); HEMOLYSIS 7; LDL CHOLESTEROL (CALC.) 33 mg/dL (60-99); MAGNESIUM 1.8 mg/dL (1.7-2.5); POTASSIUM 3.8 mEQ/L (3.4-4.9); SODIUM 137 mEQ/L (135-145); TOTAL PROTEIN 6.5 g/dL (6.6-8.7)
--- NOTE | 2016-10-16 08:16 | Diagnostic Imaging Report ---
Indication: AMS Technique: Continuous helical CT scanning of the head was performed without intravenous contrast material. Axial and coronal 5 mm sections were generated. Dose: Total Dose Length Product - DLP [address] Dose Index - CTDIvol(s) 70.38 mGy. Comparison: None Findings: There is prominence of cortical sulci and the ventricular system. Some periventricular low density is present. There is no shift of midline structures. No abnormal extra-axial fluid collections are noted. There is no evidence of intracerebral bleeding. No other abnormal high or low density areas are noted within the brain. There is opacification of some right mastoid air cells and the right middle ear space. Impression: Atrophy. Chronic small vessel white matter ischemic change. Right mastoid sinus and middle ear inflammatory change. The above report is concordant with preliminary reading by [employer] . The CT scanner at [facility] is accredited by the [employer] and the scans are performed using protocols designed to limit radiation exposure to as low as reasonably achievable to attain images of sufficient resolution adequate for diagnostic evaluation.
[2016-10-16 08:39] LABS: ABG ALLEN TEST POSITIVE; ABG BASE EXCESS 2.8; ABG PCO2 58.7 mmHg (35.0-45.0)
--- NOTE | 2016-10-16 08:51 | Diagnostic Imaging Report ---
Indication: SOB Technique: XRAY CHEST 1 V Comparison:10/15/2016 Findings: A tracheostomy remains in place. The heart remains enlarged. Patient is rotated. Pulmonary vascular redistribution is present. There is slight blunting of the right costophrenic angle. Left base is now opacified. Impression: Cardia mainly with congestive heart failure. Small right pleural effusion. Left base now opacified. This merits of a left pleural effusion or volume loss or infiltrate in the left lower lobe. Repeat with less rotation may be helpful. No other change.
[2016-10-16] MEDS: Revatio 20mg tab ORAL SCH ×3 (08:52→17:07)
[2016-10-16] MEDS: Heparin 5000 units/ml inj SUBQ SCH ×2 (08:52→20:55)
[2016-10-16] MEDS ORDERED: Calcitriol 0.25mcg Cap ORAL SCH (09:00)
--- NOTE | 2016-10-16 11:06 | Consultation ---
History of Present Illness General Date patient seen: Oct 16, 2016 Time patient seen: 10:30 Chief Complaint: Altered Level of Consciousness Referring physician: dr Nolan Reason for Consultation: pulmonary Present Illness HPI 76-year-old morbidly obese female with PMH of chronic respiratory failure, VDRF/ trach, morbid obesity,PAF, chronic lymphedema, MINA, COPD, severe pulmonary HTN, was [place] [facility] [place] noted to be with altered mental status , drowsy and difficult to arouse No focal deficit. No fever. No vomiting. No fever no leukocytosis CT head revealed no acute IC pathology CXR with left base opacity , effsuion vs volume loss HH-9.5/28.8 no leukocytosis UA c/w UTI patient with recent hx of UTI with E coli ESBL patient was admitted for further management Allergies: Coded Allergies: AMOXICILLIN (Verified Allergy, Mild, RASH, 09/30/16) MORPHINE (Unverified Allergy, Unknown, 09/30/16) PENICILLINS (Unverified Allergy, Unknown, 09/30/16) Medication History Scheduled Apixaban (Eliquis), 2.5 MG PO BID, (Reported) Calcitriol (Calcitriol), 0.25 MCG ORAL DAILY, (Reported) Calcium Carbonate (Calcium Carbonate), 1,250 MG ORAL BID, (Reported) Cranberry Extract (Cranberry), 200 MG PO DAILY, (Reported) Cyanocobalamin (Vitamin B-12)* (Vitamin B-12*), 3,000 MCG ORAL DAILY, (Reported) Docusate Sodium* (Docusate Sodium*), 100 MG ORAL TWICE A DAY, (Reported) Fluticasone Propionate* (Fluticasone Propionate*), 1 SPRAY NASAL DAILY, ( Reported) Folic Acid* (Folic Acid*), 1 MG ORAL DAILY, (Reported) Folic Acid/Vitamin B Comp W-C (Jessi-Barbara Tablet), 0.8 MG PO DAILY, (Reported) Furosemide* (Lasix*), 20 MG ORAL TWICE A DAY, (Reported) Gabapentin* (Gabapentin*), 600 MG ORAL TWICE A DAY, (Reported) Ipratropium/Albuterol Sulfate (DuoNeb 0.5-3(2.5)mg/3ml), 3 ML HHN EVERY 2 HOURS, (Reported) Lactobacillus Acidophilus (Probiotic), 1 EACH PO DAILY, (Reported) Letrozole (Femara), 2.5 MG ORAL DAILY, (Reported) Lidocaine (Lidocaine), 700 MG TP EVERY 24 HOURS, (Reported) Nutritional Supplement (Hi-Mark), 1,000 ML PO TID, (Reported) Pantoprazole (Pantoprazole), 40 MG ORAL DAILY, (Reported) Polyethylene Glycol 3350* (Miralax*), 17 GM ORAL DAILY, (Reported) Pravastatin Sod* (Pravastatin Sod*), 20 MG ORAL BEDTIME, (Reported) Prednisone* (Prednisone*), 10 MG ORAL DAILY, (Reported) Sevelamer Carbonate (Renvela), 800 MG ORAL THREE TIMES A DAY Sildenafil Citrate (Revatio), 20 MG ORAL THREE TIMES A DAY Scheduled PRN Acetaminophen* (Acetaminophen*), 650 MG ORAL Q4HR PRN for Fever/Headache/Mild Pain, (Reported) Acetaminophen* (Acetaminophen 325MG Tablet*), 650 MG ORAL Q4H PRN for Mild Pain/ Temp > 100.5, (Reported) Ipratropium/Albuterol Sulfate (DuoNeb 0.5-3(2.5)mg/3ml), 3 ML HHN Q6HR PRN for Shortness of Breath, (Reported) Patient History History Provided By: Medical Record Healthcare decision maker Resuscitation status Advanced Directive on File Past Medical/Surgical History Past Medical/Surgical History: (1) Chronic respiratory failure (2) ATN (acute tubular necrosis) (3) Morbid obesity with BMI of 50.0-59.9, adult (4) UTI due to extended-spectrum beta lactamase (ESBL) producing Escherichia coli (5) Encephalopathy acute (6) MINA (obstructive sleep apnea) (7) Pickwickian syndrome (8) CHF (congestive heart failure) (9) Atrial fibrillation (10) Acute GI bleeding Review of Systems ROS Narrative patient is unable to provide info due to being on ventilator Physical Exam General Appearance: no apparent distress, alert - responsive , morbidly obese - female , other - on Vent 600-30%-16 Lines, tubes and drains: peripheral, trach - Shiley # 6 secretions moderate yellow thin HEENT: normocephalic, atraumatic, mucous membranes moist Respiratory/Chest: decreased breath sounds Cardiovascular/Chest: irregularly irregular - A fib, occasionally aaliyah Extremities: other - edema +1 BLE, chronic lymphedema with erythema BLE Neurologic: abnormal gait - bedridden, alert, responsive, normal mood/affect Musculoskeletal: atrophy - BLE Last 24 Hour Vital Signs Date Time Temp Pulse Resp B/P (MAP) Pulse Ox O2 Delivery O2 Flow Rate FiO2 10/16/16 08:54 78 18 100 10/16/16 07:20 87 14 100 10/16/16 07:18 76 16 126/70 98 Mechanical Ventilator 10/16/16 05:25 71 14 100 10/16/16 03:54 98.2 70 14 126/61 100 Mechanical Ventilator 100 10/16/16 03:20 79 14 100 10/16/16 03:01 98.0 68 18 122/68 100 Mechanical Ventilator 100 10/16/16 01:55 98.0 78 18 120/79 100 Mechanical Ventilator 100 10/16/16 00:47 100 10/16/16 00:25 83 14 100 10/16/16 00:17 98.5 79 14 113/54 100 Mechanical Ventilator 100 10/15/16 23:40 98.4 87 113/54 100 Mechanical Ventilator 100 Laboratory Tests Test 10/15/16 23:55 10/16/16 00:02 10/16/16 05:55 10/16/16 08:27 White Blood Count 6.4 K/UL (4.8-10.8) 6.6 K/UL (4.8-10.8) Red Blood Count 3.18 M/UL (4.20-5.40) L 2.97 M/UL (4.20-5.40) L Hemoglobin 9.5 G/DL (12.0-16.0) L 8.9 G/DL (12.0-16.0) L Hematocrit 28.8 % (37.0-47.0) L 26.7 % (37.0-47.0) L Mean Corpuscular Volume 90 FL (80-99) 90 FL (80-99) Mean Corpuscular Hemoglobin 30.0 PG (27.0-31.0) 29.9 PG (27.0-31.0) Mean Corpuscular Hemoglobin Concent 33.1 G/DL (32.0-36.0) 33.3 G/DL (32.0-36.0) Red Cell Distribution Width 13.7 % (11.6-14.8) 13.4 % (11.6-14.8) Platelet Count 214 K/UL (150-450) 196 K/UL (150-450) Mean Platelet Volume 5.8 FL (6.5-10.1) L 5.6 FL (6.5-10.1) L Neutrophils (%) (Auto) 68.6 % (45.0-75.0) 80.2 % (45.0-75.0) H Lymphocytes (%) (Auto) 18.4 % (20.0-45.0) L 9.0 % (20.0-45.0) L Monocytes (%) (Auto) 7.9 % (1.0-10.0) 7.3 % (1.0-10.0) Eosinophils (%) (Auto) 4.5 % (0.0-3.0) H 2.5 % (0.0-3.0) Basophils (%) (Auto) 0.6 % (0.0-2.0) 0.9 % (0.0-2.0) Urine Color Pale yellow Urine Appearance Cloudy Urine pH 5 (4.5-8.0) Urine Specific [place] 1.010 (1.005-1.035) Urine Protein 3+ (NEGATIVE) H Urine Glucose (UA) Negative (NEGATIVE) Urine Ketones Negative (NEGATIVE) Urine Occult Blood 5+ (NEGATIVE) H Urine Nitrite Negative (NEGATIVE) Urine Bilirubin Negative (NEGATIVE) Urine Urobilinogen Normal MG/DL (0.0-1.0) Urine Leukocyte Esterase 3+ (NEGATIVE) H Urine RBC Tntc /HPF (0 - 2) H Urine WBC Tntc /HPF (0 - 2) H Urine Squamous Epithelial Cells Few /LPF (NONE/OCC) Urine Bacteria Many /HPF (NONE) H Urine Yeast Many /HPF (NONE) H Sodium Level 138 mEQ/L (135-145) 137 mEQ/L (135-145) Potassium Level 3.5 mEQ/L (3.4-4.9) 3.8 mEQ/L (3.4-4.9) Chloride Level 97 mEQ/L (98-107) L 97 mEQ/L (98-107) L Carbon Dioxide Level 28 mEQ/L (20-30) 27 mEQ/L (20-30) Anion Gap 13 (5-15) 13 (5-15) Blood Urea Nitrogen 69 mg/dL (7-23) H 69 mg/dL (7-23) H Creatinine 3.1 mg/dL (0.5-0.9) H 3.2 mg/dL (0.5-0.9) H Estimat Glomerular Filtration Rate mL/min (>60) mL/min (>60) Glucose Level 124 mg/dL (74-106) H 123 mg/dL (74-106) H Calcium Level 8.7 mg/dL (8.6-10.2) 8.7 mg/dL (8.6-10.2) Troponin I < 0.30 ng/mL (<=0.30) Arterial Blood pH 7.380 (7.350-7.450) 7.320 (7.350-7.450) Arterial Blood Partial Pressure CO2 45.9 mmHg (35.0-45.0) H 58.7 mmHg (35.0-45.0) *H Arterial Blood Partial Pressure O2 423.0 mmHg (75.0-100.0) H 517.8 mmHg (75.0-100.0) H Arterial Blood HCO3 26.5 mmol/L (22.0-26.0) H 29.8 mmol/L (22.0-26.0) H Arterial Blood Oxygen Saturation 99.0 % (92.0-98.0) H 99.3 % (92.0-98.0) H Arterial Blood Base Excess 1.1 2.8 Mike Test Positive Positive Phosphorus Level 4.0 mg/dL (2.5-4.8) Magnesium Level 1.8 mg/dL (1.7-2.5) Total Bilirubin 0.3 mg/dL (0.0-1.2) Aspartate Amino Transf (AST/SGOT) 11 U/L (5-40) Alanine Aminotransferase (ALT/SGPT) 5 U/L (3-33) Alkaline Phosphatase 61 U/L (35-104) Total Protein 6.5 g/dL (6.6-8.7) L Albumin 2.7 g/dL (3.5-5.2) L Globulin 3.8 g/dL Albumin/Globulin Ratio 0.7 (1.0-2.7) L Triglycerides Level 87 mg/dL (< 150) Cholesterol Level 89 mg/dL (< 200) LDL Cholesterol 33 mg/dL (60-99) L HDL Cholesterol 39 mg/dL (> 60) Cholesterol/HDL Ratio 2.3 (3.3-4.4) L Thyroid Stimulating Hormone (TSH) 2.140 uIU/mL (0.300-4.500) Height (Feet): 5 Height (Inches): 6.00 Weight (Pounds): 350 Medications Current Medications Medications (Trade) Dose Ordered Sig/Kalyn Route PRN Reason Start Time Stop Time Status Last Admin Dose Admin Acetaminophen (Tylenol) 650 mg Q4H PRN ORAL fever 10/16/16 06:00 11/15/16 05:59 Al Hydroxide/Mg Hydroxide (Mylanta II) 30 ml Q6H PRN ORAL dyspepsia 10/16/16 06:00 11/15/16 05:59 Calcitriol (Rocatrol) 0.25 mcg DAILY ORAL 10/16/16 09:00 11/15/16 08:59 10/16/16 08:52 Dextrose (Dextrose 50%) STAT PRN IV Hypoglycemia 10/16/16 06:00 11/15/16 05:59 Ertapenem 0.5 gm/ Sodium Chloride 55 ml @ 110 mls/hr Q24H IVPB 10/17/16 02:00 10/22/16 01:59 Furosemide (Lasix) 20 mg BID ORAL 10/16/16 09:00 11/15/16 08:59 10/16/16 08:52 Heparin Sodium (Porcine) (Heparin 5000 units/ml) 5,000 units EVERY 12 HOURS SUBQ 10/16/16 09:00 11/15/16 08:59 10/16/16 08:52 Lorazepam (Ativan 2mg/ml 1ml) 0.5 mg Q4H PRN IV For Anxiety 10/16/16 06:00 10/23/16 05:59 Ondansetron HCl (Zofran) 4 mg Q6H PRN IVP Nausea & Vomiting 10/16/16 06:00 11/15/16 05:59 Polyethylene Glycol (Miralax) 17 gm HSPRN PRN ORAL Constipation 10/16/16 06:00 11/15/16 05:59 Sevelamer Carbonate (Renvela) 800 mg THREE TIMES A DAY ORAL 10/16/16 09:00 11/15/16 08:59 10/16/16 08:52 Sildenafil Citrate (Revatio) 20 mg THREE TIMES A DAY ORAL 10/16/16 09:00 11/15/16 08:59 10/16/16 08:52 Zolpidem Tartrate (Ambien) 5 mg HSPRN PRN ORAL Insomnia 10/16/16 06:00 10/23/16 05:59 Assessment/Plan Assessment/Plan ASSESSMENT acute encephalopathy ( likely due to infectious process) UTI recent hx of UTI with E coli ESBL anemia acute on chronic hypercapnic respiratory failure tracheostomy status severe pulmonary HTN bradycardia PAF chronic lymphedema BLE morbid obesity PLAN OF CARE FRANCISCO vent support trach care baseline ABG with hypercapnia, increase AC rate /per discussion with supervising MD ABG in am pulmonary toilet fup with CXR continue Sildenafil empiric abx to cover for possible E coli ESBL ID consult monitor mental status, currently improved CT head negative monitor renal parameters, lytes, avoid nephrotoxic nephro follows off a/coagulation due to recurrent upper GI bleeding/hematemesis SCD GI prophylaxis monitor HH, transfuse prn prior anemia w/uip c/w anemia of chronic disease, goal to keep Hgb above 8 diet as tolerated wound nurse eval case discussed and evaluated by supervising physician Rojas Page)Jaquelin NP Oct 16, 2016 11:06
--- NOTE | 2016-10-16 11:23 | Consultation ---
Consult Note Consult Note patient discharged yesterday- readmitted again for ALOC from renal stand Cr higher from 3 to 3.2 Assessment/Plan status: CKD- and acute renal failure Acute respiratory failure s/p Trach Obese COPD , CHF, Diastolic MINA UTI Anemia GI Bleed, GI bleeding At Fib Pulm HTN h/o Low B12 Plan: 24 H U for CrCl Per consultants COURTNEY LOPEZ Oct 16, 2016 11:22
--- NOTE | 2016-10-16 15:59 | Neurology Progress Note ---
Objective Physical Exam Last Vital Signs Date Time Temp Pulse Resp B/P (MAP) Pulse Ox O2 Delivery O2 Flow Rate FiO2 10/16/16 15:03 59 16 100 10/16/16 12:00 98.2 101/48 100 Mechanical Ventilator Laboratory Tests Test 10/15/16 23:55 10/16/16 00:02 10/16/16 05:55 10/16/16 08:27 White Blood Count 6.4 K/UL (4.8-10.8) 6.6 K/UL (4.8-10.8) Red Blood Count 3.18 M/UL (4.20-5.40) L 2.97 M/UL (4.20-5.40) L Hemoglobin 9.5 G/DL (12.0-16.0) L 8.9 G/DL (12.0-16.0) L Hematocrit 28.8 % (37.0-47.0) L 26.7 % (37.0-47.0) L Mean Corpuscular Volume 90 FL (80-99) 90 FL (80-99) Mean Corpuscular Hemoglobin 30.0 PG (27.0-31.0) 29.9 PG (27.0-31.0) Mean Corpuscular Hemoglobin Concent 33.1 G/DL (32.0-36.0) 33.3 G/DL (32.0-36.0) Red Cell Distribution Width 13.7 % (11.6-14.8) 13.4 % (11.6-14.8) Platelet Count 214 K/UL (150-450) 196 K/UL (150-450) Mean Platelet Volume 5.8 FL (6.5-10.1) L 5.6 FL (6.5-10.1) L Neutrophils (%) (Auto) 68.6 % (45.0-75.0) 80.2 % (45.0-75.0) H Lymphocytes (%) (Auto) 18.4 % (20.0-45.0) L 9.0 % (20.0-45.0) L Monocytes (%) (Auto) 7.9 % (1.0-10.0) 7.3 % (1.0-10.0) Eosinophils (%) (Auto) 4.5 % (0.0-3.0) H 2.5 % (0.0-3.0) Basophils (%) (Auto) 0.6 % (0.0-2.0) 0.9 % (0.0-2.0) Urine Color Pale yellow Urine Appearance Cloudy Urine pH 5 (4.5-8.0) Urine Specific [place] 1.010 (1.005-1.035) Urine Protein 3+ (NEGATIVE) H Urine Glucose (UA) Negative (NEGATIVE) Urine Ketones Negative (NEGATIVE) Urine Occult Blood 5+ (NEGATIVE) H Urine Nitrite Negative (NEGATIVE) Urine Bilirubin Negative (NEGATIVE) Urine Urobilinogen Normal MG/DL (0.0-1.0) Urine Leukocyte Esterase 3+ (NEGATIVE) H Urine RBC Tntc /HPF (0 - 2) H Urine WBC Tntc /HPF (0 - 2) H Urine Squamous Epithelial Cells Few /LPF (NONE/OCC) Urine Bacteria Many /HPF (NONE) H Urine Yeast Many /HPF (NONE) H Sodium Level 138 mEQ/L (135-145) 137 mEQ/L (135-145) Potassium Level 3.5 mEQ/L (3.4-4.9) 3.8 mEQ/L (3.4-4.9) Chloride Level 97 mEQ/L (98-107) L 97 mEQ/L (98-107) L Carbon Dioxide Level 28 mEQ/L (20-30) 27 mEQ/L (20-30) Anion Gap 13 (5-15) 13 (5-15) Blood Urea Nitrogen 69 mg/dL (7-23) H 69 mg/dL (7-23) H Creatinine 3.1 mg/dL (0.5-0.9) H 3.2 mg/dL (0.5-0.9) H Estimat Glomerular Filtration Rate mL/min (>60) mL/min (>60) Glucose Level 124 mg/dL (74-106) H 123 mg/dL (74-106) H Calcium Level 8.7 mg/dL (8.6-10.2) 8.7 mg/dL (8.6-10.2) Troponin I < 0.30 ng/mL (<=0.30) Arterial Blood pH 7.380 (7.350-7.450) 7.320 (7.350-7.450) Arterial Blood Partial Pressure CO2 45.9 mmHg (35.0-45.0) H 58.7 mmHg (35.0-45.0) *H Arterial Blood Partial Pressure O2 423.0 mmHg (75.0-100.0) H 517.8 mmHg (75.0-100.0) H Arterial Blood HCO3 26.5 mmol/L (22.0-26.0) H 29.8 mmol/L (22.0-26.0) H Arterial Blood Oxygen Saturation 99.0 % (92.0-98.0) H 99.3 % (92.0-98.0) H Arterial Blood Base Excess 1.1 2.8 Mike Test Positive Positive Phosphorus Level 4.0 mg/dL (2.5-4.8) Magnesium Level 1.8 mg/dL (1.7-2.5) Total Bilirubin 0.3 mg/dL (0.0-1.2) Aspartate Amino Transf (AST/SGOT) 11 U/L (5-40) Alanine Aminotransferase (ALT/SGPT) 5 U/L (3-33) Alkaline Phosphatase 61 U/L (35-104) Total Protein 6.5 g/dL (6.6-8.7) L Albumin 2.7 g/dL (3.5-5.2) L Globulin 3.8 g/dL Albumin/Globulin Ratio 0.7 (1.0-2.7) L Triglycerides Level 87 mg/dL (< 150) Cholesterol Level 89 mg/dL (< 200) LDL Cholesterol 33 mg/dL (60-99) L HDL Cholesterol 39 mg/dL (> 60) Cholesterol/HDL Ratio 2.3 (3.3-4.4) L Thyroid Stimulating Hormone (TSH) 2.140 uIU/mL (0.300-4.500) Impression/Recommendations Recommendations #[id number] SOFIA CANDELARIA Oct 16, 2016 15:59
[2016-10-16] MEDS ORDERED: DuoNeb 0.5-3(2.5)mg/3ml neb HHN PRN (17:45)
--- NOTE | 2016-10-16 21:05 | History & Physical ---
History and Physical History & Physicial H & P dictated [id number] MD An Cardona Peiman MD Oct 16, 2016 21:05
[2016-10-17] MEDS: Ertapenem 0.5 GM in NS 55 ML IVPB SCH (02:52)
--- NOTE | 2016-10-17 03:15 | Consultation ---
DATE OF CONSULTATION: 10/16/2016 NEUROLOGICAL CONSULTATION CONSULTING PHYSICIAN: Tavon Mills M.D. REQUESTING PHYSICIAN: Manny Nolan M.D. HISTORY OF PRESENT ILLNESS: This is a 76-year-old female with respiratory failure and tracheostomy, now seen in neurological consultation to evaluate the episodes of oversedation with verbal unresponsiveness, etiology of which was not clear and Neurology consult was requested. Following admission, imaging was requested including CT of the brain. This revealed chronic small vessel disease, right mastoid sinus and middle ear inflammatory changes, mild atrophy. Her chest x-ray with CHF, small right pleural effusion, opacified left base. Laboratory work included CBC study with hemoglobin 9.5 and hematocrit 28.8. Urinalysis, WBC too numerous to count, RBC too numerous to count, 3+ leukocyte esterase. Chemistry panel, BUN of 69, creatinine 3.1, low albumin 2.7. Lipid panel unremarkable as well as TSH. Following admission, the patient remained lethargic, but gradually displayed signs of improvement. PAST MEDICAL HISTORY: The patient has extensive medical history, which included chronic anemia, paroxysmal atrial fibrillation, pleural effusions, CHF, renal failure, obstructive sleep apnea, morbid obesity, and GERD. MEDICATIONS: The patient's treatment prior to admission included Tylenol, Eliquis, calcitriol, B12, folate, furosemide, gabapentin, albuterol, Femara, lidocaine, pantoprazole, prednisone 10 mg, Renvela, and sildenafil. ALLERGIES: Amoxicillin, morphine, and penicillin. SOCIAL HISTORY: Lives in a nursing facility. FAMILY HISTORY: Noncontributory. REVIEW OF SYMPTOMS: The patient is now indicating that she is feeling back to her normal except she noticed that redness in her lower extremities more than before. No chest pain. No palpitation. PHYSICAL EXAMINATION: GENERAL: A well-developed, morbidly obese female, not in acute distress. VITAL SIGNS: Her vital signs now are stable. Blood pressure 101/38, temperature 98.2, heart rate of 58. The patient had since admission bradycardia. HEENT: Head is normocephalic. No evidence of injuries. Eyes, ears, nose, and throat are clear. The patient now on trach, respiratory is abandoned. MUSCULOSKELETAL: Remarkable for significant swelling, distal aspect of lower extremities with significant redness at both christian region, more on the left. Peripheral pulses 1+ and symmetric. NEUROLOGIC: Mental status, she is alert. MENTAL STATUS: She is fully alert, oriented to her name and age, able to follow commands, speech limited due to tracheostomy. CRANIAL NERVE II: Pupils both responding to light and accommodation. Extraocular movements intact. No nystagmus. CRANIAL NERVE V: Normal corneal responses. CRANIAL NERVE VII: No facial asymmetry. Grossly normal hearing. CRANIAL NERVES IX THROUGH XII: Normal limits. MOTOR EXAMINATION: Normal muscle tone in both upper extremities. Able to lift against gravity both lower extremities totalling about 10 degrees. Deep tendon reflexes depressed bilaterally. Plantar responses mute. SENSORY EXAMINATION: Reduced response to pin stimulation of both feet. IMPRESSION: 1. Transient verbal unresponsiveness, very likely representing toxic metabolic encephalopathy. 2. Rule out lower extremity cellulitis. 3. Acute renal failure. 4. Respiratory failure, status post tracheostomy. 5. Chronic obstructive pulmonary disease. 6. Congestive heart failure. 7. Obstructive sleep apnea. 8. Urinary tract infection, rule out urosepsis. 9. Paroxysmal atrial fibrillation, intermittent bradycardia. RECOMMENDATION: The patient has multiple somatic issues contributing to her mental status changes including underlying infection, metabolic derangement, and episodes of bradycardia. The patient is appropriately now placed on IV fluids, antibiotics, and supportive care. Cognitive function is back to her baseline. We will follow with you as requested. Thank you for allowing me to see this interesting patient in neurological consultation. Tavon Mills M.D. DR: Galindo JOB#: [id number] CC:
[2016-10-17 04:07] VITALS: BP 105/56
[2016-10-17 05:08] LABS: MEAN CORPUSCULAR HEMOGLOBIN 28.9 PG (27.0-31.0); MEAN CORPUSCULAR VOLUME 90 FL (80-99); MEAN PLATELET VOLUME 5.6 FL (6.5-10.1); PLATELET COUNT 183 K/UL (150-450); RED BLOOD COUNT 2.75 M/UL (4.20-5.40); RED CELL DISTRIBUTION WIDTH 13.3 % (11.6-14.8); WHITE BLOOD COUNT 4.7 K/UL (4.8-10.8)
[2016-10-17 05:36] LABS: ALANINE AMINOTRANSFERASE 5 U/L (3-33); ALBUMIN/GLOBULIN RATIO 0.8 (1.0-2.7); ANION GAP 14 (5-15); ASPARTATE AMINO TRANSFERASE 10 U/L (5-40); CALCIUM 8.6 mg/dL (8.6-10.2); CARBON DIOXIDE 27 mEQ/L (20-30); CHLORIDE 98 mEQ/L (98-107); CHOLESTEROL 83 mg/dL (< 200); CHOLESTEROL/HDL RATIO 2.4 (3.3-4.4); CREATININE 3.1 mg/dL (0.5-0.9); HEMOLYSIS 1; LDL CHOLESTEROL (CALC.) 29 mg/dL (60-99); POTASSIUM 3.5 mEQ/L (3.4-4.9); SODIUM 139 mEQ/L (135-145); TOTAL PROTEIN 5.8 g/dL (6.6-8.7)
[2016-10-17 05:44] LABS: CRP QUANT 3.1 mg/dL (< 0.5); MAGNESIUM 1.7 mg/dL (1.7-2.5); PHOSPHORUS 3.4 mg/dL (2.5-4.8); URIC ACID 12.3 mg/dL (3.0-7.5)
[2016-10-17 06:00] LABS: EOSINOPHILS % (MANUAL) 1 % (0-3); LYMPHOCYTES % (MANUAL) 20 % (20-45); NEUTROPHILS % (MANUAL) 72 % (45-75); TOTAL CELLS COUNTED 100
[2016-10-17 06:01] LABS: BAND NEUTROPHILS % (MANUAL) 0 % (0-8); BASOPHILS % (MANUAL) 0 % (0-2); PLATELET ESTIMATE ADEQUATE; PLATELET MORPHOLOGY NORMAL
[2016-10-17 08:15] VITALS: BP 120/68
[2016-10-17 09:03] LABS: ABG ALLEN TEST POSITIVE; ABG BASE EXCESS 3.5; ABG PCO2 38.9 mmHg (35.0-45.0)
[2016-10-17] MEDS: Revatio 20mg tab ORAL SCH ×3 (09:39→18:35)
[2016-10-17] MEDS: Heparin 5000 units/ml inj SUBQ SCH ×2 (09:44→20:55)
--- NOTE | 2016-10-17 10:04 | Pulmonology Progress Note ---
Assessment/Plan Assessment/Plan ASSESSMENT acute encephalopathy ( likely due to infectious process) UTI recent hx of UTI with E coli ESBL anemia acute on chronic hypercapnic respiratory failure tracheostomy status severe pulmonary HTN bradycardia PAF chronic lymphedema BLE possible cellulitis BLE morbid obesity PLAN OF CARE FRANCISCO vent support trach care baseline ABG with hypercapnia, increased AC rate /per discussion with supervising MD ABG this am stable on current settings , no hypercapnia pulmonary toilet fup with CXR in am continue Sildenafil empiric abx to cover for possible E coli ESBL ID consult - per PMD discretion urine cx + GNB monitor mental status, currently improved CT head negative monitor renal parameters, lytes, avoid nephrotoxic nephro follows off a/coagulation due to recurrent upper GI bleeding/hematemesis SCD GI prophylaxis monitor HH, trendign down this am, transfuse with 1 u PRBC prior anemia w/uip c/w anemia of chronic disease, goal to keep Hgb above 8 diet as tolerated wound nurse eval case discussed and evaluated by supervising physician Subjective Allergies: Coded Allergies: AMOXICILLIN (Verified Allergy, Mild, RASH, 09/30/16) MORPHINE (Unverified Allergy, Unknown, 09/30/16) PENICILLINS (Unverified Allergy, Unknown, 09/30/16) Subjective denies chest pain, no signs of respiratory distress on current settings ABG stable on current settings HH down creat same Objective Last 24 Hour Vital Signs Date Time Temp Pulse Resp B/P (MAP) Pulse Ox O2 Delivery O2 Flow Rate FiO2 10/17/16 08:36 69 16 100 10/17/16 08:15 97.5 78 18 120/68 100 Mechanical Ventilator 30 10/17/16 06:34 68 16 100 10/17/16 05:19 60 16 100 10/17/16 04:07 98.3 61 16 105/56 98 Mechanical Ventilator 30 10/17/16 04:00 30 10/17/16 03:46 60 10/17/16 03:41 63 19 100 10/17/16 01:02 85 20 100 10/17/16 00:00 30 10/17/16 00:00 61 10/16/16 23:52 97.3 63 17 84/40 96 Mechanical Ventilator 30 10/16/16 23:19 77 16 100 10/16/16 20:40 73 16 100 10/16/16 20:00 30 10/16/16 20:00 97.9 73 17 147/62 96 Mechanical Ventilator 30 10/16/16 20:00 78 10/16/16 19:22 74 17 100 10/16/16 18:03 72 18 100 Mechanical Ventilator 35 10/16/16 17:45 71 19 97 Mechanical Ventilator 30 10/16/16 16:52 70 16 100 10/16/16 16:00 30 10/16/16 16:00 97.7 63 16 111/51 96 Mechanical Ventilator 30 10/16/16 15:36 66 10/16/16 15:03 59 16 100 10/16/16 13:15 67 20 100 10/16/16 12:08 68 10/16/16 12:00 98.2 58 16 101/48 100 Mechanical Ventilator 30 10/16/16 12:00 30 10/16/16 11:09 59 19 100 Objective General Appearance: no apparent distress, alert , responsive , morbidly obese female , on Vent 600-30%-16 Lines, tubes and drains: peripheral, trach - Shiley # 6 secretions moderate yellow thin HEENT: normocephalic, atraumatic, mucous membranes moist Respiratory/Chest: decreased breath sounds Cardiovascular/Chest: ST today occasionally aaliyah Extremities: edema +1 BLE, chronic lymphedema with erythema BLE Neurologic: abnormal gait - bedridden, alert, responsive, normal mood/affect Musculoskeletal: atrophy - BLE Microbiology Date/Time Source Procedure Growth Status 10/15/16 23:55 Urine,Clean Catch Urine Culture - Preliminary Gram Negative Bacillus 1 Resulted Laboratory Tests 10/17/16 03:40: White Blood Count 4.7L, Red Blood Count 2.75L, Hemoglobin 7.9L, Hematocrit 24.8L , Mean Corpuscular Volume 90, Mean Corpuscular Hemoglobin 28.9, Mean Corpuscular Hemoglobin Concent 32.0, Red Cell Distribution Width 13.3, Platelet Count 183, Mean Platelet Volume 5.6L, Neutrophils (%) (Auto) , Lymphocytes (%) ( Auto) , Monocytes (%) (Auto) , Eosinophils (%) (Auto) , Basophils (%) (Auto) , Differential Total Cells Counted 100, Neutrophils % (Manual) 72, Lymphocytes % ( Manual) 20, Monocytes % (Manual) 7, Eosinophils % (Manual) 1, Basophils % ( Manual) 0, Band Neutrophils 0, Platelet Estimate Adequate, Platelet Morphology Normal, Red Blood Cell Morphology Normal, Sodium Level 139, Potassium Level 3.5 , Chloride Level 98, Carbon Dioxide Level 27, Anion Gap 14, Blood Urea Nitrogen 68H, Creatinine 3.1H, Estimat Glomerular Filtration Rate , Glucose Level 90, Uric Acid 12.3H, Calcium Level 8.6, Phosphorus Level 3.4, Magnesium Level 1.7, Total Bilirubin 0.3, Gamma Glutamyl Transpeptidase 15, Aspartate Amino Transf ( AST/SGOT) 10, Alanine Aminotransferase (ALT/SGPT) 5, Alkaline Phosphatase 56, C- Reactive Protein, Quantitative 3.1H, Pro-B-Type Natriuretic Peptide 67428E, Total Protein 5.8L, Albumin 2.6L, Globulin 3.2, Albumin/Globulin Ratio 0.8L, Triglycerides Level 97, Cholesterol Level 83, LDL Cholesterol 29L, HDL Cholesterol 35, Cholesterol/HDL Ratio 2.4L, Thyroid Stimulating Hormone (TSH) 1.540 10/17/16 04:00: Arterial Blood pH 7.467H, Arterial Blood Partial Pressure CO2 38.9, Arterial Blood Partial Pressure O2 91.0, Arterial Blood HCO3 27.5H, Arterial Blood Oxygen Saturation 97.0, Arterial Blood Base Excess 3.5, Mike Test Positive Current Medications Medications (Trade) Dose Ordered Sig/Kalyn Route PRN Reason Start Time Stop Time Status Last Admin Dose Admin Acetaminophen (Tylenol) 650 mg Q4H PRN ORAL fever 10/16/16 06:00 11/15/16 05:59 Albuterol/ Ipratropium (DuoNeb 0.5-3(2.5)mg/3ml) 3 ml Q4H PRN HHN Shortness of Breath 10/16/16 17:45 10/21/16 17:44 10/16/16 17:47 Dextrose (Dextrose 50%) STAT PRN IV Hypoglycemia 10/16/16 06:00 11/15/16 05:59 Ertapenem 0.5 gm/ Sodium Chloride 55 ml @ 110 mls/hr Q24H IVPB 10/17/16 02:00 10/22/16 01:59 10/17/16 02:52 Furosemide (Lasix) 20 mg BID ORAL 10/16/16 09:00 11/15/16 08:59 10/17/16 09:39 Heparin Sodium (Porcine) (Heparin 5000 units/ml) 5,000 units EVERY 12 HOURS SUBQ 10/16/16 09:00 11/15/16 08:59 10/17/16 09:44 Lansoprazole (Prevacid) 30 mg DAILY ORAL 10/16/16 12:00 11/15/16 11:59 10/17/16 09:39 Lorazepam (Ativan 2mg/ml 1ml) 0.5 mg Q4H PRN IV For Anxiety 10/16/16 06:00 10/23/16 05:59 Ondansetron HCl (Zofran) 4 mg Q6H PRN IVP Nausea & Vomiting 10/16/16 06:00 11/15/16 05:59 Polyethylene Glycol (Miralax) 17 gm HSPRN PRN ORAL Constipation 10/16/16 06:00 11/15/16 05:59 Sildenafil Citrate (Revatio) 20 mg THREE TIMES A DAY ORAL 10/16/16 09:00 11/15/16 08:59 10/17/16 09:39 Zolpidem Tartrate (Ambien) 5 mg HSPRN PRN ORAL Insomnia 10/16/16 06:00 10/23/16 05:59 [facility] ([facility])Jaquelin NP Oct 17, 2016 10:04
--- NOTE | 2016-10-17 11:12 | General Progress Note ---
Assessment/Plan Status Narrative Cr down 2.1 Assessment/Plan CKD- and acute renal failure Acute respiratory failure s/p Trach Obese COPD , CHF, Diastolic MINA UTI Anemia GI Bleed, GI bleeding At Fib Pulm HTN h/o Low B12 Plan: add allopurinol 24 H U for CrCl being collected Per consultants Subjective ROS Limited/Unobtainable: Yes Allergies: Coded Allergies: AMOXICILLIN (Verified Allergy, Mild, RASH, 09/30/16) MORPHINE (Unverified Allergy, Unknown, 09/30/16) PENICILLINS (Unverified Allergy, Unknown, 09/30/16) Objective Last 24 Hour Vital Signs Date Time Temp Pulse Resp B/P (MAP) Pulse Ox O2 Delivery O2 Flow Rate FiO2 10/17/16 08:36 69 16 100 10/17/16 08:15 97.5 78 18 120/68 100 Mechanical Ventilator 30 10/17/16 06:34 68 16 100 10/17/16 05:19 60 16 100 10/17/16 04:07 98.3 61 16 105/56 98 Mechanical Ventilator 30 10/17/16 04:00 30 10/17/16 03:46 60 10/17/16 03:41 63 19 100 10/17/16 01:02 85 20 100 10/17/16 00:00 30 10/17/16 00:00 61 10/16/16 23:52 97.3 63 17 84/40 96 Mechanical Ventilator 30 10/16/16 23:19 77 16 100 10/16/16 20:40 73 16 100 10/16/16 20:00 30 10/16/16 20:00 97.9 73 17 147/62 96 Mechanical Ventilator 30 10/16/16 20:00 78 10/16/16 19:22 74 17 100 10/16/16 18:03 72 18 100 Mechanical Ventilator 35 10/16/16 17:45 71 19 97 Mechanical Ventilator 30 10/16/16 16:52 70 16 100 10/16/16 16:00 30 10/16/16 16:00 97.7 63 16 111/51 96 Mechanical Ventilator 30 10/16/16 15:36 66 10/16/16 15:03 59 16 100 10/16/16 13:15 67 20 100 10/16/16 12:08 68 10/16/16 12:00 98.2 58 16 101/48 100 Mechanical Ventilator 30 10/16/16 12:00 30 Laboratory Tests 10/17/16 03:40: White Blood Count 4.7L, Red Blood Count 2.75L, Hemoglobin 7.9L, Hematocrit 24.8L , Mean Corpuscular Volume 90, Mean Corpuscular Hemoglobin 28.9, Mean Corpuscular Hemoglobin Concent 32.0, Red Cell Distribution Width 13.3, Platelet Count 183, Mean Platelet Volume 5.6L, Neutrophils (%) (Auto) , Lymphocytes (%) ( Auto) , Monocytes (%) (Auto) , Eosinophils (%) (Auto) , Basophils (%) (Auto) , Differential Total Cells Counted 100, Neutrophils % (Manual) 72, Lymphocytes % ( Manual) 20, Monocytes % (Manual) 7, Eosinophils % (Manual) 1, Basophils % ( Manual) 0, Band Neutrophils 0, Platelet Estimate Adequate, Platelet Morphology Normal, Red Blood Cell Morphology Normal, Sodium Level 139, Potassium Level 3.5 , Chloride Level 98, Carbon Dioxide Level 27, Anion Gap 14, Blood Urea Nitrogen 68H, Creatinine 3.1H, Estimat Glomerular Filtration Rate , Glucose Level 90, Uric Acid 12.3H, Calcium Level 8.6, Phosphorus Level 3.4, Magnesium Level 1.7, Total Bilirubin 0.3, Gamma Glutamyl Transpeptidase 15, Aspartate Amino Transf ( AST/SGOT) 10, Alanine Aminotransferase (ALT/SGPT) 5, Alkaline Phosphatase 56, C- Reactive Protein, Quantitative 3.1H, Pro-B-Type Natriuretic Peptide 46519C, Total Protein 5.8L, Albumin 2.6L, Globulin 3.2, Albumin/Globulin Ratio 0.8L, Triglycerides Level 97, Cholesterol Level 83, LDL Cholesterol 29L, HDL Cholesterol 35, Cholesterol/HDL Ratio 2.4L, Thyroid Stimulating Hormone (TSH) 1.540 10/17/16 04:00: Arterial Blood pH 7.467H, Arterial Blood Partial Pressure CO2 38.9, Arterial Blood Partial Pressure O2 91.0, Arterial Blood HCO3 27.5H, Arterial Blood Oxygen Saturation 97.0, Arterial Blood Base Excess 3.5, Mike Test Positive Height (Feet): 5 Height (Inches): 6.00 Weight (Pounds): 364 General Appearance: no apparent distress Respiratory/Chest: decreased breath sounds Abdomen: distended Objective no other changes COURTNEY LOPEZ Oct 17, 2016 11:12
[2016-10-17 12:00] VITALS: BP 117/66
--- NOTE | 2016-10-17 12:52 | Consultation ---
Consult Note Consult Note Cardiology for Dr. Peralta Full consult dictated # [id number] STACEY WATERS Oct 17, 2016 12:52
[2016-10-17 14:36] LABS: TOTAL PROTEIN 24HR URINE 152.5 mg/24hr (< 150)
[2016-10-17 15:40] LABS: CREATININE 3.2 mg/dL (0.5-0.9)
[2016-10-17 15:57] LABS: CREATININE CLEARANCE,URINE 5 mL/min (71-151)
[2016-10-17 16:00] VITALS: BP 113/60
[2016-10-17 19:53] VITALS: BP 105/53
--- NOTE | 2016-10-17 20:45 | Consultation ---
DATE OF CONSULTATION: CARDIOLOGY CONSULTATION Being done as a coverage for Dr. Faizan Peralta. REQUESTING PHYSICIAN: Manny Nolan M.D. REASON FOR CONSULTATION: Atrial fibrillation. HISTORY OF PRESENT ILLNESS: The patient is a 76-year-old woman with morbid obesity, COPD, obstructive sleep apnea, chronic respiratory failure, status post tracheostomy, diastolic and right-sided heart failure, valvular heart disease with mitral and tricuspid regurgitation, and paroxysmal possibly persistent atrial fibrillation. She had been hospitalized about one month ago with gastrointestinal bleeding. She was noted to be in atrial fibrillation at that time and was treated with rate control without anticoagulation. She was admitted on 10/16/2016 with altered mental status, transferred from the convalescent facility. Chest x-ray showed left base opacity, and urinalysis findings were consistent with UTI, too numerous to count white blood cells, and many bacteria. She was admitted for treatment of infection and altered mental status. She was noted to be in atrial fibrillation with controlled ventricular rate. Cardiology followup was requested. The patient is intermittently alert, able to respond to questions. She denies dyspnea, palpitations, or chest pain currently. She is a fair historian. Previous records indicate that she had an echo done on 09/07/2016 showing normal left ventricular systolic function with an ejection fraction of 60% to 65%, significant right atrial and right ventricular enlargement, severe tricuspid regurgitation, moderate pulmonary hypertension, and moderate mitral regurgitation. PAST MEDICAL HISTORY: As noted above, history of hypertension, morbid obesity, COPD, obstructive sleep apnea, diastolic heart failure, chronic respiratory failure, status post tracheostomy, and history of gastrointestinal bleed (question source). MEDICATIONS: Allopurinol 100 mg daily, ertapenem 0.5 g IV q.24 hours, DuoNeb nebulizer every four hours as needed, Prevacid 30 mg daily, Lasix 20 mg p.o. b.i.d., sildenafil 20 mg three times daily, subcutaneous heparin 5000 units twice daily, Tylenol p.r.n., MiraLax p.r.n., Zofran p.r.n., Ambien p.r.n., and Ativan p.r.n. ALLERGIES: Penicillins and morphine. SOCIAL HISTORY: The patient currently is a convalescent home resident. She has a remote history of tobacco use. No history of alcohol abuse. PHYSICAL EXAMINATION: VITAL SIGNS: Blood pressure is 120/68, pulse 78, irregular, respirations 20, afebrile, and oxygen saturation 100% on 30% FiO2. GENERAL: An alert and morbidly obese white female, on the ventilator. HEENT: Normocephalic, atraumatic. Pupils are equal, round, and reactive to light. Sclerae anicteric. Oral mucosa moist. NECK: Supple. There is a tracheostomy midline, site clean. LUNGS: Scattered rhonchi bilaterally. HEART: Irregularly irregular. Distant S1 and S2 with no murmur or S3. ABDOMEN: Soft, nontender. No palpable mass. EXTREMITIES: Bilateral SCDs. A 3+ pitting edema to the thighs bilaterally. SKIN: There is abdominal wall edema and scattered areas of excoriation around the left upper chest. LABORATORY AND DIAGNOSTIC DATA: Hemoglobin 7.9, hematocrit 24.8, white blood count 4700, and platelets 183,000. Sodium 139, potassium 3.5, chloride 98, bicarbonate 27, BUN 68, and creatinine 3.1. Natriuretic peptide proBNP 18,010. Troponin less than 0.3. Chest x-ray shows cardiomegaly, pulmonary vascular redistribution, and opacification of the left base. Urinalysis shows too numerous to count white blood cells and red blood cells, cloudy, 3+ leukocyte esterase, and many bacteria. Urine culture, positive Gram-negative bacillus, ID and sensitivity pending. EKG shows atrial fibrillation with ventricular rate of 70 beats per minute, low voltage QRS, rightward axis, and nonspecific ST-segment and T-wave changes. ASSESSMENT AND RECOMMENDATIONS: The patient is a 76-year-old woman with multiple chronic medical problems as outlined above, who was admitted with altered mental status, possibly due to pneumonia or urinary tract infection. She has been started on her usual medications. She is noted to be in atrial fibrillation, which appears to be persistent or possibly permanent. She is not a candidate for anticoagulation, given her recent history of gastrointestinal bleeding and anemia with hemoglobin of 7.9 today. I would favor rate control. If needed, diltiazem can be started, however, at this time, she appears with controlled ventricular rates, off negative dromotropic agents. 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 She appears with right heart failure and possible diastolic dysfunction with significant volume overload. She appears grossly volume overloaded with diffuse edema, anasarca. She is in renal failure with an elevation of creatinine in the range of 3 to 3.2. She is being followed by Dr. Cummings, Nephrology. A 24-hour urine is being collected. Volume overload may also be due to renal failure. She is being managed by Dr. Cummings, Nephrology. Thank you for allowing me to see this patient in Cardiology consultation. She will be followed by Dr. Peralta starting 10/18/2016. Shelbi Salter M.D. DR: Israel JOB#: [id number] CC:
--- NOTE | 2016-10-17 22:11 | General Progress Note ---
Assessment/Plan Assessment/Plan 76 y/o female admitted with AMS and acute uti and acute on chronic renal failure : Problems: - acute uti - altered mental status - chronic hypercapenic respiratory failure/ s/p trach, now Vent dependent - anemia - CKD (acute on chronic) - mobid obesity - PAF - bradycardia - severe pulmonary hypertension - diastolic heart failure - MDD - history of right breast ca s/p lumpectomy Plan: - continue iv antibiotics, ID consult - 24 hour urine collection per Dr. Cummings - Avoid nephrotoxic agents - fu cultures - DC pichardo - transfuse prn hgb less than 7.5 - pt ot - continue currents meds - vent support per DR. Rene - not on anticoagulation secodary to recent gi bleed - cardiology fu appreciated - VTE prophylaxis with SCDs discussed with nurse Subjective Date patient seen: Oct 17, 2016 Allergies: Coded Allergies: AMOXICILLIN (Verified Allergy, Mild, RASH, 09/30/16) MORPHINE (Unverified Allergy, Unknown, 09/30/16) PENICILLINS (Unverified Allergy, Unknown, 09/30/16) Objective Last 24 Hour Vital Signs Date Time Temp Pulse Resp B/P (MAP) Pulse Ox O2 Delivery O2 Flow Rate FiO2 10/17/16 21:30 71 16 30 10/17/16 20:00 75 10/17/16 19:53 97.9 75 20 105/53 95 Mechanical Ventilator 30 10/17/16 19:30 76 16 30 10/17/16 17:27 74 16 100 10/17/16 16:00 97.7 71 20 113/60 100 Mechanical Ventilator 30 10/17/16 16:00 66 10/17/16 16:00 30 10/17/16 15:08 86 17 100 10/17/16 13:09 88 19 100 10/17/16 12:01 68 10/17/16 12:00 30 10/17/16 12:00 98.8 85 20 117/66 100 Mechanical Ventilator 30 10/17/16 10:49 76 16 100 10/17/16 08:36 69 16 100 10/17/16 08:15 97.5 78 18 120/68 100 Mechanical Ventilator 30 10/17/16 08:00 71 10/17/16 08:00 30 10/17/16 06:34 68 16 100 10/17/16 05:19 60 16 100 10/17/16 04:07 98.3 61 16 105/56 98 Mechanical Ventilator 30 10/17/16 04:00 30 10/17/16 03:46 60 10/17/16 03:41 63 19 100 10/17/16 01:02 85 20 100 10/17/16 00:00 30 10/17/16 00:00 61 10/16/16 23:52 97.3 63 17 84/40 96 Mechanical Ventilator 30 10/16/16 23:19 77 16 100 Intake and Output 10/17/16 10/18/16 19:00 07:00 Intake Total 570 ml Output Total 400 ml Balance 170 ml Intake Oral 570 ml Output Urine Total 400 ml Laboratory Tests 10/17/16 03:40: White Blood Count 4.7L, Red Blood Count 2.75L, Hemoglobin 7.9L, Hematocrit 24.8L , Mean Corpuscular Volume 90, Mean Corpuscular Hemoglobin 28.9, Mean Corpuscular Hemoglobin Concent 32.0, Red Cell Distribution Width 13.3, Platelet Count 183, Mean Platelet Volume 5.6L, Neutrophils (%) (Auto) , Lymphocytes (%) ( Auto) , Monocytes (%) (Auto) , Eosinophils (%) (Auto) , Basophils (%) (Auto) , Differential Total Cells Counted 100, Neutrophils % (Manual) 72, Lymphocytes % ( Manual) 20, Monocytes % (Manual) 7, Eosinophils % (Manual) 1, Basophils % ( Manual) 0, Band Neutrophils 0, Platelet Estimate Adequate, Platelet Morphology Normal, Red Blood Cell Morphology Normal, Sodium Level 139, Potassium Level 3.5 , Chloride Level 98, Carbon Dioxide Level 27, Anion Gap 14, Blood Urea Nitrogen 68H, Creatinine 3.1H, Estimat Glomerular Filtration Rate , Glucose Level 90, Uric Acid 12.3H, Calcium Level 8.6, Phosphorus Level 3.4, Magnesium Level 1.7, Total Bilirubin 0.3, Gamma Glutamyl Transpeptidase 15, Aspartate Amino Transf ( AST/SGOT) 10, Alanine Aminotransferase (ALT/SGPT) 5, Alkaline Phosphatase 56, C- Reactive Protein, Quantitative 3.1H, Pro-B-Type Natriuretic Peptide [id number], Total Protein 5.8L, Albumin 2.6L, Globulin 3.2, Albumin/Globulin Ratio 0.8L, Triglycerides Level 97, Cholesterol Level 83, LDL Cholesterol 29L, HDL Cholesterol 35, Cholesterol/HDL Ratio 2.4L, Thyroid Stimulating Hormone (TSH) 1.540 10/17/16 04:00: Arterial Blood pH 7.467H, Arterial Blood Partial Pressure CO2 38.9, Arterial Blood Partial Pressure O2 91.0, Arterial Blood HCO3 27.5H, Arterial Blood Oxygen Saturation 97.0, Arterial Blood Base Excess 3.5, Mike Test Positive Height (Feet): 5 Height (Inches): 6.00 Weight (Pounds): 364 General Appearance: morbidly obese EENT: PERRL/EOMI, pharynx normal Neck: non-tender, supple Cardiovascular: normal rate, regular rhythm, no gallop/murmur, no JVD Respiratory/Chest: chest wall non-tender, normal breath sounds, no respiratory distress Abdomen: non tender, soft, no mass Extremities: swelling Edema: no edema noted Arm (L), no edema noted Arm (R), 2+ Leg (L), 2+ Leg (R), 2+ Pedal (L), 2+ Pedal (R), 2+ Generalized Edema: severe edema 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
[2016-10-18] VITALS: BP 103/54
[2016-10-18] MEDS: Ertapenem 0.5 GM in NS 55 ML IVPB SCH (02:25)
[2016-10-18 04:00] VITALS: BP 116/56
[2016-10-18 05:35] LABS: CALCIUM 8.9 mg/dL (8.6-10.2); CARBON DIOXIDE 27 mEQ/L (20-30); CHLORIDE 97 mEQ/L (98-107); HEMOLYSIS 2; SODIUM 139 mEQ/L (135-145)
[2016-10-18 05:52] LABS: BASOPHILS % (AUTO) 0.9 % (0.0-2.0); EOSINOPHILS % (AUTO) 5.2 % (0.0-3.0); LYMPHOCYTES % (AUTO) 24.3 % (20.0-45.0); MEAN CORPUSCULAR HEMOGLOBIN 28.6 PG (27.0-31.0); MEAN CORPUSCULAR HGB CONC 31.7 G/DL (32.0-36.0); MEAN CORPUSCULAR VOLUME 90 FL (80-99); MEAN PLATELET VOLUME 5.5 FL (6.5-10.1); MONOCYTES % (AUTO) 8.8 % (1.0-10.0); NEUTROPHILS % (AUTO) 60.9 % (45.0-75.0); PLATELET COUNT 223 K/UL (150-450); RED BLOOD COUNT 3.08 M/UL (4.20-5.40); WHITE BLOOD COUNT 5.9 K/UL (4.8-10.8)
[2016-10-18 06:01] LABS: ANION GAP 15 (5-15)
[2016-10-18 08:00] VITALS: BP 122/66
--- NOTE | 2016-10-18 08:15 | History and Physical Report ---
DATE OF ADMISSION: 10/16/2016 CHIEF COMPLAINT: Altered mental status. HISTORY OF PRESENT ILLNESS: This is a very pleasant 76-year-old morbidly obese female with history of chronic hypercapnic respiratory failure on vent, status post trach recently, who was just discharged after treatment for respiratory failure and pneumonia. The patient now returns with altered mental status and was found to have UTI in the ER. CT of the brain was negative as well as blood work. The patient will be admitted for IV antibiotics to cover for ESBL E. coli as she has a history of that in the past. I will get Neurology and Pulmonary consultation and Infectious Disease consult. REVIEW OF SYSTEMS: The patient currently is alert. Denies any chest pain or palpitations. No cough or congestion. Denies any nausea or vomiting. No fevers or chills. Denies any dysuria, urgency, or frequency. No headaches or dizziness. No diplopia, dysarthria, or dysphagia. Denies any melena, hematochezia, diarrhea, or constipation. No other rashes are seen. No joint pain or swelling. PAST MEDICAL HISTORY: Significant for morbid obesity, chronic hypercapnic respiratory failure, status post trach, history of paroxysmal atrial fibrillation, history of chronic lymphedema, history of obstructive sleep apnea, COPD, history of severe pulmonary hypertension, history of gastrointestinal bleed, history of chronic anemia, history of breast cancer status post right lumpectomy, status post radiation. ALLERGIES: Amoxicillin causes rash, morphine causes hallucinations, and penicillin causes rash. MEDICATIONS: From rehabilitation, reconciled in link. FAMILY HISTORY: Noncontributory. SOCIAL HISTORY: The patient is . She currently resides in rehabilitation with [facility]. She denies any smoking, drugs, or alcohol use. PHYSICAL EXAMINATION: VITAL SIGNS: Blood pressure is 147/62, pulse of 72, respiratory rate of 17, temperature is 97.9. GENERAL: This is a moderately obese female, looking her stated age, in mild respiratory distress. HEENT: Normocephalic and atraumatic. Extraocular muscles are intact. Pupils are equal, round, react to light. Anicteric sclerae. Oropharynx is dry. Neck is supple. Trach is in place and connected to the vent. CHEST: Clear to auscultation bilaterally. No wheezes, rales, or rhonchi. CARDIOVASCULAR: Normal S1, S2. No murmurs, rubs, or gallops. ABDOMEN: Bowel sounds are positive. Belly is soft, nontender, nondistended. No hepatosplenomegaly. EXTREMITIES: There is 2+ chronic edema of her lower legs without any pitting. SKIN: Otherwise clear. NEUROLOGIC: The patient is awake, alert, and oriented x4. Cranial nerves II through XII are grossly intact. No sensory or motor deficits. . LABORATORY DATA: Laboratory evaluation on admission, the patient's CBC shows a white count 6.4, hemoglobin is 9.5, hematocrit 28.8, platelet count is 214 with elevated eosinophils. BMP shows sodium 137, potassium 3.8, chloride 97, carbon dioxide 27, anion gap 13, BUN high at 69, creatinine is high at 3.2, glucose is 123, magnesium is 1.8, phosphorus 4, calcium 8.7, total protein is slightly low at 6.5, albumin is low at 2.7. Cholesterol shows total cholesterol of 89. TSH is 2.14. The rest are all in normal range. IMAGING STUDIES: A CT scan of the brain shows chronic small vessel white matter ischemic changes and right maxillary sinus and middle ear inflammatory changes. No stroke or hemorrhage. Chest x-ray shows opacification of the left base and small right pleural effusion. Otherwise, no change from prior x-rays. EKG shows sinus bradycardia. IMPRESSION: This is a 76-year-old female, admitted with altered mental status and acute urinary tract infection. She will be admitted to [facility] with the following medical problems: 1. Altered mental status. The patient appears to be improved at baseline now. Follow up by Neurology if CT of brain is negative. Most likely toxic metabolic in nature. We will monitor and correct infectious disease. 2. Acute urinary tract infection. The patient is started on ertapenem to cover the extended-spectrum beta-lactamases Escherichia coli, which the patient had before. Infectious Disease has been consulted. We will follow up culture results. 3. Chronic respiratory failure. The patient is on vent. Pulmonary is consulted to follow the patient and monitor. 4. Morbid obesity. Diet and exercise is recommended. The patient will go to rehab after discharge. 5. Pulmonary hypertension. Continue with the current sildenafil and Eliquis if there is no bleeding. Monitor closely. 6. History of breast cancer. Continue with letrozole and follow up with Oncology as an outpatient for mammogram. 7. Deep venous thrombosis prophylaxis with heparin subcutaneous and sequential compression devices. 8. The patient is Full Code. Manny Nolan M.D. DR: Kandy JOB#: [id number] CC:
[2016-10-18] MEDS: Heparin 5000 units/ml inj SUBQ SCH ×2 (08:54→20:53)
[2016-10-18] MEDS: Revatio 20mg tab ORAL SCH ×3 (08:54→17:47)
[2016-10-18] MEDS: Allopurinol 100mg Tab ORAL SCH (08:54)
--- NOTE | 2016-10-18 10:32 | Diagnostic Imaging Report ---
Indication: SOB/cough Technique: One view of the chest Comparison: 10/16/2016 Findings: Heart is enlarged. Mostly interstitial parenchymal opacities in the right mid and lower lung appear similar to the prior study, allowing for technical differences. There may be slight improvement of retrocardiac consolidation and generalized interstitial congestion. Tracheostomy remains Impression: Stable to slightly improved bilateral interstitial edema. Stable or slightly improved retrocardiac consolidation and/or pleural fluid over one day
--- NOTE | 2016-10-18 10:46 | General Progress Note ---
Assessment/Plan Status: stable Assessment/Plan CKD- and acute renal failure Acute respiratory failure s/p Trach Obese COPD , CHF, Diastolic MINA UTI Anemia GI Bleed, GI bleeding At Fib Pulm HTN h/o Low B12 Plan: add allopurinol 24 H U for CrCl being collected AGAIN- doubt the first one correct Per consultants Subjective ROS Limited/Unobtainable: No Constitutional: Reports: malaise Allergies: Coded Allergies: AMOXICILLIN (Verified Allergy, Mild, RASH, 09/30/16) MORPHINE (Unverified Allergy, Unknown, 09/30/16) PENICILLINS (Unverified Allergy, Unknown, 09/30/16) Objective Last 24 Hour Vital Signs Date Time Temp Pulse Resp B/P (MAP) Pulse Ox O2 Delivery O2 Flow Rate FiO2 10/18/16 09:05 80 18 30 10/18/16 08:00 30 10/18/16 08:00 97.7 59 16 122/66 98 Mechanical Ventilator 30 10/18/16 08:00 86 10/18/16 06:45 57 16 30 10/18/16 05:09 88 16 30 10/18/16 04:00 61 10/18/16 04:00 98.7 81 20 116/56 98 Mechanical Ventilator 30 10/18/16 04:00 30 10/18/16 03:01 63 16 30 10/18/16 01:11 61 16 30 10/18/16 00:00 98.1 61 20 103/54 97 Mechanical Ventilator 30 10/18/16 00:00 66 10/18/16 00:00 30 10/17/16 23:30 68 16 30 10/17/16 21:30 71 16 30 10/17/16 20:00 75 10/17/16 20:00 30 10/17/16 19:53 97.9 75 20 105/53 95 Mechanical Ventilator 30 10/17/16 19:30 76 16 30 10/17/16 17:27 74 16 100 10/17/16 16:00 97.7 71 20 113/60 100 Mechanical Ventilator 30 10/17/16 16:00 66 10/17/16 16:00 30 10/17/16 15:08 86 17 100 10/17/16 13:09 88 19 100 10/17/16 12:01 68 10/17/16 12:00 30 10/17/16 12:00 98.8 85 20 117/66 100 Mechanical Ventilator 30 10/17/16 10:49 76 16 100 Laboratory Tests 10/18/16 04:10: White Blood Count 5.9, Red Blood Count 3.08L, Hemoglobin 8.8L, Hematocrit 27.8L , Mean Corpuscular Volume 90, Mean Corpuscular Hemoglobin 28.6, Mean Corpuscular Hemoglobin Concent 31.7L, Red Cell Distribution Width 14.0, Platelet Count 223, Mean Platelet Volume 5.5L, Neutrophils (%) (Auto) 60.9, Lymphocytes (%) (Auto) 24.3, Monocytes (%) (Auto) 8.8, Eosinophils (%) (Auto) 5.2H, Basophils (%) (Auto) 0.9, Sodium Level 139, Potassium Level 4.0, Chloride Level 97L, Carbon Dioxide Level 27, Anion Gap 15, Blood Urea Nitrogen 66H, Creatinine 3.0H, Estimat Glomerular Filtration Rate , Glucose Level 97, Calcium Level 8.9 Height (Feet): 5 Height (Inches): 6.00 Weight (Pounds): 364 General Appearance: no apparent distress Respiratory/Chest: decreased breath sounds Abdomen: soft Objective no other changes COURTNEY LOPEZ Oct 18, 2016 10:46
--- NOTE | 2016-10-18 11:19 | Pulmonology Progress Note ---
Assessment/Plan Problems: (1) Chronic respiratory failure (2) Urinary tract infection (3) MINA (obstructive sleep apnea) (4) Morbid obesity (5) Pickwickian syndrome Respiratory: monitor respiratory rate, adjust FIO2, CXR Cardiac: continue to monitor HR/BP Renal: F/U I&O, keep IV fluid, check electrolytes Infectious Disease: check cultures, continue antibiotics Gastrointestinal: continue feedings/current rate, hold feedings Endocrine: monitor blood sugar, check HgA1C, continue sliding scale insulin Hematologic: transfuse if hgb<8.5 Neurologic: PRN Ativan, PRN Morphine, keep patient comfortable Affect: PRN ativan Prophylaxis: Protonix, Heparin Notes Reviewed: bronze chaser, cardio 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: nurses, consultants, correctional case manager Subjective ROS Limited/Unobtainable: No Interval Events: awake, comfortable Constitutional: Reports: no symptoms Respiratory: Reports: other Gastrointestinal/Abdominal: Reports: no symptoms Allergies: Coded Allergies: AMOXICILLIN (Verified Allergy, Mild, RASH, 09/30/16) MORPHINE (Unverified Allergy, Unknown, 09/30/16) PENICILLINS (Unverified Allergy, Unknown, 09/30/16) Objective Last 24 Hour Vital Signs Date Time Temp Pulse Resp B/P (MAP) Pulse Ox O2 Delivery O2 Flow Rate FiO2 10/18/16 09:05 80 18 30 10/18/16 08:00 30 10/18/16 08:00 97.7 59 16 122/66 98 Mechanical Ventilator 30 10/18/16 08:00 86 10/18/16 06:45 57 16 30 10/18/16 05:09 88 16 30 10/18/16 04:00 61 10/18/16 04:00 98.7 81 20 116/56 98 Mechanical Ventilator 30 10/18/16 04:00 30 10/18/16 03:01 63 16 30 10/18/16 01:11 61 16 30 10/18/16 00:00 98.1 61 20 103/54 97 Mechanical Ventilator 30 10/18/16 00:00 66 10/18/16 00:00 30 10/17/16 23:30 68 16 30 10/17/16 21:30 71 16 30 10/17/16 20:00 75 10/17/16 20:00 30 10/17/16 19:53 97.9 75 20 105/53 95 Mechanical Ventilator 30 10/17/16 19:30 76 16 30 10/17/16 17:27 74 16 100 10/17/16 16:00 97.7 71 20 113/60 100 Mechanical Ventilator 30 10/17/16 16:00 66 10/17/16 16:00 30 10/17/16 15:08 86 17 100 10/17/16 13:09 88 19 100 10/17/16 12:01 68 10/17/16 12:00 30 10/17/16 12:00 98.8 85 20 117/66 100 Mechanical Ventilator 30 General Appearance: WD/WN HEENT: normocephalic, atraumatic Respiratory/Chest: chest wall non-tender, lungs clear Cardiovascular: normal peripheral pulses, normal rate Abdomen: normal bowel sounds, soft, non tender Extremities: no clubbing Neurologic/Psychiatric: no motor/sensory deficits Lymphatic: no neck adenopathy Microbiology Date/Time Source Procedure Growth Status 10/15/16 23:59 Blood Blood Culture - Preliminary NO GROWTH AFTER 24 HOURS Resulted 10/15/16 23:45 Blood Blood Culture - Preliminary NO GROWTH AFTER 24 HOURS Resulted 10/16/16 00:00 Nasal Nares MRSA Culture - Final NO METHICILLIN RESISTANT STAPH AUREUS... Complete 10/15/16 23:55 Urine,Clean Catch Urine Culture - Final Klebsiella Pneumoniae Esbl Complete Laboratory Tests 10/18/16 04:10: White Blood Count 5.9, Red Blood Count 3.08L, Hemoglobin 8.8L, Hematocrit 27.8L , Mean Corpuscular Volume 90, Mean Corpuscular Hemoglobin 28.6, Mean Corpuscular Hemoglobin Concent 31.7L, Red Cell Distribution Width 14.0, Platelet Count 223, Mean Platelet Volume 5.5L, Neutrophils (%) (Auto) 60.9, Lymphocytes (%) (Auto) 24.3, Monocytes (%) (Auto) 8.8, Eosinophils (%) (Auto) 5.2H, Basophils (%) (Auto) 0.9, Sodium Level 139, Potassium Level 4.0, Chloride Level 97L, Carbon Dioxide Level 27, Anion Gap 15, Blood Urea Nitrogen 66H, Creatinine 3.0H, Estimat Glomerular Filtration Rate , Glucose Level 97, Calcium Level 8.9 Current Medications Medications (Trade) Dose Ordered Sig/Kalyn Route PRN Reason Start Time Stop Time Status Last Admin Dose Admin Acetaminophen (Tylenol) 650 mg Q4H PRN ORAL fever 10/16/16 06:00 11/15/16 05:59 Albuterol/ Ipratropium (DuoNeb 0.5-3(2.5)mg/3ml) 3 ml Q4H PRN HHN Shortness of Breath 10/16/16 17:45 10/21/16 17:44 10/16/16 17:47 Allopurinol (Zyloprim) 100 mg DAILY ORAL 10/18/16 09:00 11/17/16 08:59 10/18/16 08:54 Dextrose (Dextrose 50%) STAT PRN IV Hypoglycemia 10/16/16 06:00 11/15/16 05:59 Ertapenem 0.5 gm/ Sodium Chloride 55 ml @ 110 mls/hr Q24H IVPB 10/17/16 02:00 10/22/16 01:59 10/18/16 02:25 Furosemide (Lasix) 20 mg BID ORAL 10/16/16 09:00 11/15/16 08:59 10/18/16 08:54 Heparin Sodium (Porcine) (Heparin 5000 units/ml) 5,000 units EVERY 12 HOURS SUBQ 10/16/16 09:00 11/15/16 08:59 10/18/16 08:54 Lansoprazole (Prevacid) 30 mg DAILY ORAL 10/16/16 12:00 11/15/16 11:59 10/18/16 08:54 Lorazepam (Ativan 2mg/ml 1ml) 0.5 mg Q4H PRN IV For Anxiety 10/16/16 06:00 10/23/16 05:59 Ondansetron HCl (Zofran) 4 mg Q6H PRN IVP Nausea & Vomiting 10/16/16 06:00 11/15/16 05:59 Polyethylene Glycol (Miralax) 17 gm HSPRN PRN ORAL Constipation 10/16/16 06:00 11/15/16 05:59 Sildenafil Citrate (Revatio) 20 mg THREE TIMES A DAY ORAL 10/16/16 09:00 11/15/16 08:59 10/18/16 08:54 Zolpidem Tartrate (Ambien) 5 mg HSPRN PRN ORAL Insomnia 10/16/16 06:00 10/23/16 05:59 10/17/16 20:47 ARASH MIRANDA Oct 18, 2016 11:19
[2016-10-18 12:00] VITALS: BP 111/75
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
[2016-10-18 16:00] VITALS: BP 119/63
--- NOTE | 2016-10-18 16:26 | Consultation ---
Consult Note Assessment/Plan # [id number] LINDSEY HILL M.D. Oct 18, 2016 16:25
--- NOTE | 2016-10-18 18:37 | Cardiology Report ---
APPROVED REPORT EKG Measurement Heart [id number] QT0T0 QTc0 No QRS complexes found, no ECG analysis possible
--- NOTE | 2016-10-18 18:44 | Cardiology Report ---
APPROVED REPORT EKG Measurement Heart [id number] Atrial fibrillation with controlled ventricular response Low voltage QRS Nonspecific T wave abnormality Abnormal ECG
--- NOTE | 2016-10-18 19:58 | Cardiology Progress Note ---
Assessment/Plan Assessment/Plan 1. Acute on chronic respiratory failure. 2. Anemia. 3. diastolic heart failure. 4. Permanent atrial fibrillation. 5. Gastrointestinal bleeding history, now off anticoagulation. 6. Renal insufficiency. 7. pulm htn hr seem fien has sig edema consider iv diuretic if ok with dr lau Subjective Cardiovascular: Denies: chest pain, irregular heart rate, lightheadedness, syncope Respiratory: Reports: shortness of breath Gastrointestinal/Abdominal: Denies: abdominal pain Genitourinary: Denies: burning Objective Last 24 Hour Vital Signs Date Time Temp Pulse Resp B/P (MAP) Pulse Ox O2 Delivery O2 Flow Rate FiO2 10/18/16 19:34 73 18 30 10/18/16 17:26 74 18 30 10/18/16 16:00 77 10/18/16 16:00 98.1 69 17 119/63 99 Mechanical Ventilator 30 10/18/16 16:00 30 10/18/16 15:10 65 18 30 10/18/16 13:00 72 18 30 10/18/16 12:00 98.4 76 16 111/75 100 Mechanical Ventilator 30 10/18/16 12:00 30 10/18/16 12:00 78 10/18/16 11:02 77 18 30 10/18/16 09:05 80 18 30 10/18/16 08:00 30 10/18/16 08:00 97.7 59 16 122/66 98 Mechanical Ventilator 30 10/18/16 08:00 86 10/18/16 06:45 57 16 30 10/18/16 05:09 88 16 30 10/18/16 04:00 61 10/18/16 04:00 98.7 81 20 116/56 98 Mechanical Ventilator 30 10/18/16 04:00 30 10/18/16 03:01 63 16 30 10/18/16 01:11 61 16 30 10/18/16 00:00 98.1 61 20 103/54 97 Mechanical Ventilator 30 10/18/16 00:00 66 10/18/16 00:00 30 10/17/16 23:30 68 16 30 10/17/16 21:30 71 16 30 10/17/16 20:00 75 10/17/16 20:00 30 General Appearance: alert, obese, on vent, patient on isolation Neck: supple Cardiovascular: irregularly irregular Respiratory/Chest: decreased breath sounds Abdomen: normal bowel sounds, non tender, soft Extremities: moderate edema Intake and Output 10/18/16 10/19/16 19:00 07:00 Intake Total 520 ml Output Total 200 ml Balance 320 ml Intake Oral 520 ml Output Urine Total 200 ml Laboratory Tests Test 10/18/16 04:10 White Blood Count 5.9 K/UL (4.8-10.8) Red Blood Count 3.08 M/UL (4.20-5.40) L Hemoglobin 8.8 G/DL (12.0-16.0) L Hematocrit 27.8 % (37.0-47.0) L Mean Corpuscular Volume 90 FL (80-99) Mean Corpuscular Hemoglobin 28.6 PG (27.0-31.0) Mean Corpuscular Hemoglobin Concent 31.7 G/DL (32.0-36.0) L Red Cell Distribution Width 14.0 % (11.6-14.8) Platelet Count 223 K/UL (150-450) Mean Platelet Volume 5.5 FL (6.5-10.1) L Neutrophils (%) (Auto) 60.9 % (45.0-75.0) Lymphocytes (%) (Auto) 24.3 % (20.0-45.0) Monocytes (%) (Auto) 8.8 % (1.0-10.0) Eosinophils (%) (Auto) 5.2 % (0.0-3.0) H Basophils (%) (Auto) 0.9 % (0.0-2.0) Sodium Level 139 mEQ/L (135-145) Potassium Level 4.0 mEQ/L (3.4-4.9) Chloride Level 97 mEQ/L (98-107) L Carbon Dioxide Level 27 mEQ/L (20-30) Anion Gap 15 (5-15) Blood Urea Nitrogen 66 mg/dL (7-23) H Creatinine 3.0 mg/dL (0.5-0.9) H Estimat Glomerular Filtration Rate mL/min (>60) Glucose Level 97 mg/dL (74-106) Calcium Level 8.9 mg/dL (8.6-10.2) Microbiology Date/Time Source Procedure Growth Status 10/15/16 23:59 Blood Blood Culture - Preliminary NO GROWTH AFTER 24 HOURS Resulted 10/15/16 23:45 Blood Blood Culture - Preliminary NO GROWTH AFTER 24 HOURS Resulted 10/16/16 00:00 Nasal Nares MRSA Culture - Final NO METHICILLIN RESISTANT STAPH AUREUS... Complete 10/15/16 23:55 Urine,Clean Catch Urine Culture - Final Klebsiella Pneumoniae Esbl Complete BRIANA TELLES Oct 18, 2016 19:58
[2016-10-18 20:00] VITALS: BP 128/87
--- NOTE | 2016-10-18 20:16 | General Progress Note ---
Assessment/Plan Assessment/Plan 76 y/o female admitted with AMS and acute uti and acute on chronic renal failure : Problems: - acute uti - altered mental status - chronic hypercapenic respiratory failure/ s/p trach, now Vent dependent - anemia - CKD (acute on chronic) - mobid obesity - PAF - bradycardia - severe pulmonary hypertension - diastolic heart failure - MDD - history of right breast ca s/p lumpectomy - hyperurecemia Plan: - continue iv antibiotics, ID consult - 24 hour urine collection per Dr. Cummings - Avoid nephrotoxic agents - fu cultures - DC pichardo - transfuse prn hgb less than 7.5 - pt ot - continue currents meds - vent support per DR. Rene - not on anticoagulation secodary to recent gi bleed - cardiology fu appreciated - VTE prophylaxis with SCDs - allopurinal added by nephrology -fu cultures will dc to rehab once cleared by consultants discussed with nurse Subjective Date patient seen: Oct 18, 2016 Allergies: Coded Allergies: AMOXICILLIN (Verified Allergy, Mild, RASH, 09/30/16) MORPHINE (Unverified Allergy, Unknown, 09/30/16) PENICILLINS (Unverified Allergy, Unknown, 09/30/16) Objective Last 24 Hour Vital Signs Date Time Temp Pulse Resp B/P (MAP) Pulse Ox O2 Delivery O2 Flow Rate FiO2 10/18/16 19:34 73 18 30 10/18/16 17:26 74 18 30 10/18/16 16:00 77 10/18/16 16:00 98.1 69 17 119/63 99 Mechanical Ventilator 30 10/18/16 16:00 30 10/18/16 15:10 65 18 30 10/18/16 13:00 72 18 30 10/18/16 12:00 98.4 76 16 111/75 100 Mechanical Ventilator 30 10/18/16 12:00 30 10/18/16 12:00 78 10/18/16 11:02 77 18 30 10/18/16 09:05 80 18 30 10/18/16 08:00 30 10/18/16 08:00 97.7 59 16 122/66 98 Mechanical Ventilator 30 10/18/16 08:00 86 10/18/16 06:45 57 16 30 10/18/16 05:09 88 16 30 10/18/16 04:00 61 10/18/16 04:00 98.7 81 20 116/56 98 Mechanical Ventilator 30 10/18/16 04:00 30 10/18/16 03:01 63 16 30 10/18/16 01:11 61 16 30 10/18/16 00:00 98.1 61 20 103/54 97 Mechanical Ventilator 30 10/18/16 00:00 66 10/18/16 00:00 30 10/17/16 23:30 68 16 30 10/17/16 21:30 71 16 30 Intake and Output 10/18/16 10/19/16 19:00 07:00 Intake Total 520 ml Output Total 200 ml Balance 320 ml Intake Oral 520 ml Output Urine Total 200 ml Laboratory Tests 10/18/16 04:10: White Blood Count 5.9, Red Blood Count 3.08L, Hemoglobin 8.8L, Hematocrit 27.8L , Mean Corpuscular Volume 90, Mean Corpuscular Hemoglobin 28.6, Mean Corpuscular Hemoglobin Concent 31.7L, Red Cell Distribution Width 14.0, Platelet Count 223, Mean Platelet Volume 5.5L, Neutrophils (%) (Auto) 60.9, Lymphocytes (%) (Auto) 24.3, Monocytes (%) (Auto) 8.8, Eosinophils (%) (Auto) 5.2H, Basophils (%) (Auto) 0.9, Sodium Level 139, Potassium Level 4.0, Chloride Level 97L, Carbon Dioxide Level 27, Anion Gap 15, Blood Urea Nitrogen 66H, Creatinine 3.0H, Estimat Glomerular Filtration Rate , Glucose Level 97, Calcium Level 8.9 Height (Feet): 5 Height (Inches): 6.00 Weight (Pounds): 364 General Appearance: morbidly obese EENT: PERRL/EOMI, pharynx normal Neck: non-tender, supple Cardiovascular: normal rate, regular rhythm, no gallop/murmur, no JVD Respiratory/Chest: chest wall non-tender, normal breath sounds, no respiratory distress Abdomen: non tender, soft, no mass Extremities: slow capillary refill, swelling Edema: no edema noted Arm (L), no edema noted Arm (R), 2+ Leg (L), 2+ Leg (R), 2+ Pedal (L), 2+ Pedal (R), 2+ Generalized Edema: severe edema Neurologic: product advisor II-XII grossly normal, oriented x 3, responsive Skin: warm/dry Lymphatic: normal anterior cervical (L), normal anterior cervical (R), normal posterior cervical (L), normal posterior cervical (R), normal submandibular (L) , normal submandibular (R), normal supraclavicular (L), normal supraclavicular ( R), normal axillary (L), normal axillary (R), normal inguinal (L), normal inguinal (R), normal other Manny Nolan MD Oct 18, 2016 20:16
[2016-10-19] VITALS: BP 117/75
--- NOTE | 2016-10-19 01:00 | Consultation ---
DATE OF CONSULTATION: INFECTIOUS DISEASE CONSULTATION REQUESTING PHYSICIAN: 1. Elidia Rene M.D. 2. Manny Nolan M.D. REASON FOR CONSULTATION: Evaluation of the patient for sepsis, UTI, and antibiotic management. HISTORY OF PRESENT ILLNESS: The patient is a 76-year-old female with multiple medical problems, who has been admitted to this medical center recently and was discharged. However, the patient has to be brought back due to altered level of consciousness. The patient was found to have pyuria, urinary tract infection, and sepsis. Infectious Disease consultation has been requested for further evaluation of the patient's antibiotic management. PAST MEDICAL HISTORY: 1. History of upper GI bleed. 2. History of sepsis. 3. History of bilateral lower extremities with edema. 4. History of CKD. 5. History of ventilator-dependent respiratory failure. 6. History of recurrent urinary tract infection. MEDICATIONS: IV Invanz. ALLERGIES: Amoxicillin and penicillin, however, the patient is tolerating Invanz. SOCIAL HISTORY: The patient lives in the [facility]. FAMILY HISTORY: Unavailable. REVIEW OF SYSTEMS: Unobtainable. PHYSICAL EXAMINATION: VITAL SIGNS: Temperature 97.6 degrees, blood pressure 126/87, pulse 86, and respiratory rate 18. HEENT: No pale conjunctivae. No icterus. NECK: No lymphadenopathy. CHEST: Coarse breathing sounds. HEART: S1 and S2. ABDOMEN: Soft. PEG tube in place. EXTREMITIES: No cyanosis at this time. NEUROLOGIC: Awake and confused. LABORATORY AND DIAGNOSTIC DATA: White blood cells 5.9, hemoglobin 8.8, and platelets 223,000. UA, too numerous to count white blood cells and too numerous to count red blood cells. BUN 66 and creatinine 3. Liver function tests unremarkable. Urine culture is growing ESBL Klebsiella. Blood culture is pending. Chest x-ray, bilateral interstitial edema. Head CT, chronic changes. ASSESSMENT: The patient is a 76-year-old female with multiple medical problems as listed above, who has sepsis and urinary tract infection. PLAN: 1. We will continue the patient on IV Invanz day #2/7. 2. Monitor CBC. 3. Monitor BMP. 4. Monitor culture. 5. Continue ventilator support as per Pulmonary. 6. Based on the patient's clinical course and labs, we will do further recommendation. Thank you, Dr. Rene, for allowing me to participate in the care of this patient. I will follow this patient with you during this hospitalization. Luca Milan M.D. DR: Alen JOB#: [id number] CC:
[2016-10-19] MEDS: Ertapenem 0.5 GM in NS 55 ML IVPB SCH (02:00)
[2016-10-19 04:00] VITALS: BP 126/89
[2016-10-19 05:22] LABS: BASOPHILS % (AUTO) 0.8 % (0.0-2.0); EOSINOPHILS % (AUTO) 4.3 % (0.0-3.0); LYMPHOCYTES % (AUTO) 22.9 % (20.0-45.0); MEAN CORPUSCULAR HEMOGLOBIN 30.2 PG (27.0-31.0); MEAN CORPUSCULAR HGB CONC 33.2 G/DL (32.0-36.0); MEAN CORPUSCULAR VOLUME 91 FL (80-99); MEAN PLATELET VOLUME 5.1 FL (6.5-10.1); MONOCYTES % (AUTO) 8.3 % (1.0-10.0); NEUTROPHILS % (AUTO) 63.8 % (45.0-75.0); PLATELET COUNT 183 K/UL (150-450); RED CELL DISTRIBUTION WIDTH 13.7 % (11.6-14.8); WHITE BLOOD COUNT 5.1 K/UL (4.8-10.8)
[2016-10-19 05:45] LABS: ANION GAP 14 (5-15); CALCIUM 8.6 mg/dL (8.6-10.2); CARBON DIOXIDE 26 mEQ/L (20-30); CHLORIDE 100 mEQ/L (98-107); CREATININE 3.1 mg/dL (0.5-0.9); HEMOLYSIS 21; MAGNESIUM 1.6 mg/dL (1.7-2.5); PHOSPHORUS 3.6 mg/dL (2.5-4.8); SODIUM 140 mEQ/L (135-145)
[2016-10-19 08:08] VITALS: BP 125/67
[2016-10-19] MEDS: Allopurinol 100mg Tab ORAL SCH (09:04)
[2016-10-19] MEDS: Revatio 20mg tab ORAL SCH ×3 (09:04→18:14)
[2016-10-19] MEDS: Heparin 5000 units/ml inj SUBQ SCH ×2 (09:05→22:17)
--- NOTE | 2016-10-19 11:17 | General Progress Note ---
Assessment/Plan Status: stable Assessment/Plan CKD- and acute renal failure Acute respiratory failure s/p Trach Obese COPD , CHF, Diastolic MINA UTI Anemia GI Bleed, GI bleeding At Fib Pulm HTN h/o Low B12 Plan: add allopurinol 24 H U for CrCl being collected AGAIN- doubt the first one correct Per consultants Subjective ROS Limited/Unobtainable: No Allergies: Coded Allergies: AMOXICILLIN (Verified Allergy, Mild, RASH, 09/30/16) MORPHINE (Unverified Allergy, Unknown, 09/30/16) PENICILLINS (Unverified Allergy, Unknown, 09/30/16) Objective Last 24 Hour Vital Signs Date Time Temp Pulse Resp B/P (MAP) Pulse Ox O2 Delivery O2 Flow Rate FiO2 10/19/16 10:37 71 18 30 10/19/16 08:45 71 18 30 10/19/16 08:08 98.4 73 22 125/67 98 Mechanical Ventilator 30 10/19/16 08:00 30 10/19/16 08:00 75 10/19/16 07:54 79 10/19/16 07:15 73 22 30 10/19/16 05:26 7 16 30 10/19/16 04:00 62 10/19/16 04:00 98.9 85 19 126/89 98 Mechanical Ventilator 30 10/19/16 04:00 30 10/19/16 03:26 63 16 30 10/19/16 00:47 80 16 99 Mechanical Ventilator 30 10/19/16 00:37 84 17 98 Mechanical Ventilator 30 10/19/16 00:35 84 17 30 10/19/16 00:00 74 10/19/16 00:00 98.1 75 18 117/75 96 Mechanical Ventilator 30 10/18/16 23:27 73 16 30 10/18/16 20:36 72 18 30 10/18/16 20:00 97.6 81 16 128/87 99 Mechanical Ventilator 30 10/18/16 20:00 30 10/18/16 20:00 73 10/18/16 19:34 73 18 30 10/18/16 17:26 74 18 30 10/18/16 16:00 77 10/18/16 16:00 98.1 69 17 119/63 99 Mechanical Ventilator 30 10/18/16 16:00 30 10/18/16 15:10 65 18 30 10/18/16 13:00 72 18 30 10/18/16 12:00 98.4 76 16 111/75 100 Mechanical Ventilator 30 10/18/16 12:00 30 10/18/16 12:00 78 Laboratory Tests 10/19/16 04:20: White Blood Count 5.1, Red Blood Count 2.80L, Hemoglobin 8.4L, Hematocrit 25.4L , Mean Corpuscular Volume 91, Mean Corpuscular Hemoglobin 30.2, Mean Corpuscular Hemoglobin Concent 33.2, Red Cell Distribution Width 13.7, Platelet Count 183, Mean Platelet Volume 5.1L, Neutrophils (%) (Auto) 63.8, Lymphocytes ( %) (Auto) 22.9, Monocytes (%) (Auto) 8.3, Eosinophils (%) (Auto) 4.3H, Basophils (%) (Auto) 0.8, Sodium Level 140, Potassium Level 4.0, Chloride Level 100, Carbon Dioxide Level 26, Anion Gap 14, Blood Urea Nitrogen 64H, Creatinine 3.1H, Estimat Glomerular Filtration Rate , Glucose Level 111H, Calcium Level 8.6 , Phosphorus Level 3.6, Magnesium Level 1.6L Height (Feet): 5 Height (Inches): 6.00 Weight (Pounds): 364 General Appearance: no apparent distress Objective no other changes COURTNEY LOPEZ Oct 19, 2016 11:17
[2016-10-19 11:55] VITALS: BP 114/62
[2016-10-19 12:27] LABS: CREATININE 3.1 mg/dL (0.5-0.9); CREATININE CLEARANCE,URINE 11 mL/min (71-151)
[2016-10-19] MEDS ORDERED: guaiFENesin 100mg/5ml Liq ud ORAL PRN (15:15)
[2016-10-19 16:00] VITALS: BP 132/66
--- NOTE | 2016-10-19 16:32 | Cardiology Progress Note ---
Assessment/Plan Assessment/Plan 1. Acute on chronic respiratory failure. 2. Anemia. 3. diastolic heart failure. 4. Permanent atrial fibrillation. 5. Gastrointestinal bleeding history, now off anticoagulation. 6. Renal insufficiency. 7. pulm htn hr seem chase has sig edema is on lasix drip cr almost the same will need to follow med for pulm htn soon Subjective Cardiovascular: Denies: chest pain, palpitations Respiratory: Denies: shortness of breath Gastrointestinal/Abdominal: Denies: abdominal pain Genitourinary: Reports: burning Objective Last 24 Hour Vital Signs Date Time Temp Pulse Resp B/P (MAP) Pulse Ox O2 Delivery O2 Flow Rate FiO2 10/19/16 15:29 30 10/19/16 15:29 69 10/19/16 15:11 78 17 30 10/19/16 12:45 84 19 30 10/19/16 11:55 98.2 77 18 114/62 98 Mechanical Ventilator 30 10/19/16 11:53 75 10/19/16 11:49 77 10/19/16 11:49 30 10/19/16 10:37 71 18 30 10/19/16 08:45 71 18 30 10/19/16 08:08 98.4 73 22 125/67 98 Mechanical Ventilator 30 10/19/16 08:00 30 10/19/16 08:00 75 10/19/16 07:54 79 10/19/16 07:15 73 22 30 10/19/16 05:26 7 16 30 10/19/16 04:00 62 10/19/16 04:00 98.9 85 19 126/89 98 Mechanical Ventilator 30 10/19/16 04:00 30 10/19/16 03:26 63 16 30 10/19/16 00:47 80 16 99 Mechanical Ventilator 30 10/19/16 00:37 84 17 98 Mechanical Ventilator 30 10/19/16 00:35 84 17 30 10/19/16 00:00 74 10/19/16 00:00 98.1 75 18 117/75 96 Mechanical Ventilator 30 10/18/16 23:27 73 16 30 10/18/16 20:36 72 18 30 10/18/16 20:00 97.6 81 16 128/87 99 Mechanical Ventilator 30 10/18/16 20:00 30 10/18/16 20:00 73 10/18/16 19:34 73 18 30 10/18/16 17:26 74 18 30 General Appearance: alert, on vent, patient on isolation Neck: supple Cardiovascular: irregularly irregular Respiratory/Chest: lungs clear, normal breath sounds Abdomen: non tender, soft Extremities: severe edema Laboratory Tests Test 10/19/16 04:20 10/19/16 11:00 White Blood Count 5.1 K/UL (4.8-10.8) Red Blood Count 2.80 M/UL (4.20-5.40) L Hemoglobin 8.4 G/DL (12.0-16.0) L Hematocrit 25.4 % (37.0-47.0) L Mean Corpuscular Volume 91 FL (80-99) Mean Corpuscular Hemoglobin 30.2 PG (27.0-31.0) Mean Corpuscular Hemoglobin Concent 33.2 G/DL (32.0-36.0) Red Cell Distribution Width 13.7 % (11.6-14.8) Platelet Count 183 K/UL (150-450) Mean Platelet Volume 5.1 FL (6.5-10.1) L Neutrophils (%) (Auto) 63.8 % (45.0-75.0) Lymphocytes (%) (Auto) 22.9 % (20.0-45.0) Monocytes (%) (Auto) 8.3 % (1.0-10.0) Eosinophils (%) (Auto) 4.3 % (0.0-3.0) H Basophils (%) (Auto) 0.8 % (0.0-2.0) Sodium Level 140 mEQ/L (135-145) Potassium Level 4.0 mEQ/L (3.4-4.9) Chloride Level 100 mEQ/L (98-107) Carbon Dioxide Level 26 mEQ/L (20-30) Anion Gap 14 (5-15) Blood Urea Nitrogen 64 mg/dL (7-23) H Creatinine 3.1 mg/dL (0.5-0.9) H 3.1 mg/dL (0.5-0.9) H Estimat Glomerular Filtration Rate mL/min (>60) mL/min (>60) Glucose Level 111 mg/dL (74-106) H Calcium Level 8.6 mg/dL (8.6-10.2) Phosphorus Level 3.6 mg/dL (2.5-4.8) Magnesium Level 1.6 mg/dL (1.7-2.5) L Urine Collection Time 24 HRS Urine Total Volume 1000 ML Urine Creatinine 73 mg/dL Urine Creatinine 24 Hour 730 mg/24hr (740-1570) L Patient Height Inches (Creat Clear) 66 INCHES Patient Weight Pounds (Creat Clear) 364 LBS Creatinine Clearance 11 mL/min (71-151) L BRIANA TELLES Oct 19, 2016 16:32
--- NOTE | 2016-10-19 18:15 | Infectious Diseases Prog Note ---
Assessment/Plan Assessment/Plan A: ASSESSMENT: The patient is a 76-year-old female with UTI ESBL Kleb History of upper GI bleed. History of sepsis. History of bilateral lower extremities with edema. History of CKD. History of ventilator-dependent respiratory failure History of recurrent urinary tract infection. PLAN: will continue the patient on IV Invanz day # 3 /7 Monitor CBC. Monitor BMP. Monitor culture. Continue ventilator support as per Pulmonary. Subjective Constitutional: Denies: no symptoms, fever, chills, fatigue, anorexia, drenching sweats, other Allergies: Coded Allergies: AMOXICILLIN (Verified Allergy, Mild, RASH, 09/30/16) MORPHINE (Unverified Allergy, Unknown, 09/30/16) PENICILLINS (Unverified Allergy, Unknown, 09/30/16) Objective Vital Signs Last 24 Hour Vital Signs Date Time Temp Pulse Resp B/P (MAP) Pulse Ox O2 Delivery O2 Flow Rate FiO2 10/19/16 17:15 66 17 30 10/19/16 16:00 98.6 82 18 132/66 99 Mechanical Ventilator 30 10/19/16 15:31 68 10/19/16 15:29 30 10/19/16 15:29 69 10/19/16 15:11 78 17 30 10/19/16 12:45 84 19 30 10/19/16 11:55 98.2 77 18 114/62 98 Mechanical Ventilator 30 10/19/16 11:53 75 10/19/16 11:49 77 10/19/16 11:49 30 10/19/16 10:37 71 18 30 10/19/16 08:45 71 18 30 10/19/16 08:08 98.4 73 22 125/67 98 Mechanical Ventilator 30 10/19/16 08:00 30 10/19/16 08:00 75 10/19/16 07:54 79 10/19/16 07:15 73 22 30 10/19/16 05:26 7 16 30 10/19/16 04:00 62 10/19/16 04:00 98.9 85 19 126/89 98 Mechanical Ventilator 30 10/19/16 04:00 30 10/19/16 03:26 63 16 30 10/19/16 00:47 80 16 99 Mechanical Ventilator 30 10/19/16 00:37 84 17 98 Mechanical Ventilator 30 10/19/16 00:35 84 17 30 10/19/16 00:00 74 10/19/16 00:00 98.1 75 18 117/75 96 Mechanical Ventilator 30 10/18/16 23:27 73 16 30 10/18/16 20:36 72 18 30 10/18/16 20:00 97.6 81 16 128/87 99 Mechanical Ventilator 30 10/18/16 20:00 30 10/18/16 20:00 73 10/18/16 19:34 73 18 30 Height (Feet): 5 Height (Inches): 6.00 Weight (Pounds): 364 HEENT: mucous membranes moist Respiratory/Chest: no respiratory distress Cardiovascular: regularly irregular Abdomen: soft, non tender Extremities: no cyanosis Laboratory Tests Test 10/19/16 04:20 10/19/16 11:00 White Blood Count 5.1 K/UL (4.8-10.8) Red Blood Count 2.80 M/UL (4.20-5.40) L Hemoglobin 8.4 G/DL (12.0-16.0) L Hematocrit 25.4 % (37.0-47.0) L Mean Corpuscular Volume 91 FL (80-99) Mean Corpuscular Hemoglobin 30.2 PG (27.0-31.0) Mean Corpuscular Hemoglobin Concent 33.2 G/DL (32.0-36.0) Red Cell Distribution Width 13.7 % (11.6-14.8) Platelet Count 183 K/UL (150-450) Mean Platelet Volume 5.1 FL (6.5-10.1) L Neutrophils (%) (Auto) 63.8 % (45.0-75.0) Lymphocytes (%) (Auto) 22.9 % (20.0-45.0) Monocytes (%) (Auto) 8.3 % (1.0-10.0) Eosinophils (%) (Auto) 4.3 % (0.0-3.0) H Basophils (%) (Auto) 0.8 % (0.0-2.0) Sodium Level 140 mEQ/L (135-145) Potassium Level 4.0 mEQ/L (3.4-4.9) Chloride Level 100 mEQ/L (98-107) Carbon Dioxide Level 26 mEQ/L (20-30) Anion Gap 14 (5-15) Blood Urea Nitrogen 64 mg/dL (7-23) H Creatinine 3.1 mg/dL (0.5-0.9) H 3.1 mg/dL (0.5-0.9) H Estimat Glomerular Filtration Rate mL/min (>60) mL/min (>60) Glucose Level 111 mg/dL (74-106) H Calcium Level 8.6 mg/dL (8.6-10.2) Phosphorus Level 3.6 mg/dL (2.5-4.8) Magnesium Level 1.6 mg/dL (1.7-2.5) L Urine Collection Time 24 HRS Urine Total Volume 1000 ML Urine Creatinine 73 mg/dL Urine Creatinine 24 Hour 730 mg/24hr (740-1570) L Patient Height Inches (Creat Clear) 66 INCHES Patient Weight Pounds (Creat Clear) 364 LBS Creatinine Clearance 11 mL/min (71-151) L Current Medications Medications (Trade) Dose Ordered Sig/Kalyn Route PRN Reason Start Time Stop Time Status Last Admin Dose Admin Acetaminophen (Tylenol) 650 mg Q4H PRN ORAL fever 10/16/16 06:00 11/15/16 05:59 Albuterol/ Ipratropium (DuoNeb 0.5-3(2.5)mg/3ml) 3 ml Q4H PRN HHN Shortness of Breath 10/16/16 17:45 10/21/16 17:44 10/16/16 17:47 Allopurinol (Zyloprim) 100 mg DAILY ORAL 10/18/16 09:00 11/17/16 08:59 10/19/16 09:04 Dextrose (Dextrose 50%) STAT PRN IV Hypoglycemia 10/16/16 06:00 11/15/16 05:59 Ertapenem 0.5 gm/ Sodium Chloride 55 ml @ 110 mls/hr Q24H IVPB 10/17/16 02:00 10/22/16 01:59 10/19/16 02:00 Furosemide (Lasix) 20 mg BID ORAL 10/16/16 09:00 11/15/16 08:59 10/19/16 09:04 Guaifenesin (Robitussin) 200 mg Q4H PRN ORAL For Cough 10/19/16 15:15 11/18/16 15:14 10/19/16 15:56 Heparin Sodium (Porcine) (Heparin 5000 units/ml) 5,000 units EVERY 12 HOURS SUBQ 10/16/16 09:00 11/15/16 08:59 10/19/16 09:05 Lansoprazole (Prevacid) 30 mg DAILY ORAL 10/16/16 12:00 11/15/16 11:59 10/19/16 09:04 Lorazepam (Ativan 2mg/ml 1ml) 0.5 mg Q4H PRN IV For Anxiety 10/16/16 06:00 10/23/16 05:59 Ondansetron HCl (Zofran) 4 mg Q6H PRN IVP Nausea & Vomiting 10/16/16 06:00 11/15/16 05:59 Polyethylene Glycol (Miralax) 17 gm HSPRN PRN ORAL Constipation 10/16/16 06:00 11/15/16 05:59 Sildenafil Citrate (Revatio) 20 mg THREE TIMES A DAY ORAL 10/16/16 09:00 11/15/16 08:59 10/19/16 14:38 Zolpidem Tartrate (Ambien) 5 mg HSPRN PRN ORAL Insomnia 10/16/16 06:00 10/23/16 05:59 10/17/16 20:47 LINDSEY HILL M.D. Oct 19, 2016 18:15
--- NOTE | 2016-10-19 19:30 | General Progress Note ---
Assessment/Plan Status: progressing Assessment/Plan 76 y/o female admitted with AMS and acute uti and acute on chronic renal failure : Problems: - acute uti - altered mental status - chronic hypercapenic respiratory failure/ s/p trach, now Vent dependent - anemia - CKD (acute on chronic) - mobid obesity - PAF - bradycardia - severe pulmonary hypertension - diastolic heart failure - MDD - history of right breast ca s/p lumpectomy - hyperurecemia - fluid overload Plan: - continue iv antibiotics, ID consult - 24 hour urine collection per Dr. Cummings - Avoid nephrotoxic agents - fu cultures - DC pichardo - transfuse prn hgb less than 7.5 - pt ot - continue currents meds - vent support per DR. Rene - not on anticoagulation secodary to recent gi bleed - cardiology fu appreciated - VTE prophylaxis with SCDs - allopurinal added by nephrology -fu cultures - continue lasix will dc to rehab once cleared by consultants discussed with nurse Subjective Date patient seen: Oct 19, 2016 Allergies: Coded Allergies: AMOXICILLIN (Verified Allergy, Mild, RASH, 09/30/16) MORPHINE (Unverified Allergy, Unknown, 09/30/16) PENICILLINS (Unverified Allergy, Unknown, 09/30/16) Objective Last 24 Hour Vital Signs Date Time Temp Pulse Resp B/P (MAP) Pulse Ox O2 Delivery O2 Flow Rate FiO2 10/19/16 17:15 66 17 30 10/19/16 16:00 98.6 82 18 132/66 99 Mechanical Ventilator 30 10/19/16 15:31 68 10/19/16 15:29 30 10/19/16 15:29 69 10/19/16 15:11 78 17 30 10/19/16 12:45 84 19 30 10/19/16 11:55 98.2 77 18 114/62 98 Mechanical Ventilator 30 10/19/16 11:53 75 10/19/16 11:49 77 10/19/16 11:49 30 10/19/16 10:37 71 18 30 10/19/16 08:45 71 18 30 10/19/16 08:08 98.4 73 22 125/67 98 Mechanical Ventilator 30 10/19/16 08:00 30 10/19/16 08:00 75 10/19/16 07:54 79 10/19/16 07:15 73 22 30 10/19/16 05:26 7 16 30 10/19/16 04:00 62 10/19/16 04:00 98.9 85 19 126/89 98 Mechanical Ventilator 30 10/19/16 04:00 30 10/19/16 03:26 63 16 30 10/19/16 00:47 80 16 99 Mechanical Ventilator 30 10/19/16 00:37 84 17 98 Mechanical Ventilator 30 10/19/16 00:35 84 17 30 10/19/16 00:00 74 10/19/16 00:00 98.1 75 18 117/75 96 Mechanical Ventilator 30 10/18/16 23:27 73 16 30 10/18/16 20:36 72 18 30 10/18/16 20:00 97.6 81 16 128/87 99 Mechanical Ventilator 30 10/18/16 20:00 30 10/18/16 20:00 73 10/18/16 19:34 73 18 30 Intake and Output 10/19/16 10/20/16 19:00 07:00 Intake Total 2240 ml Output Total 900 ml Balance 1340 ml Intake Oral 2240 ml Output Urine Total 900 ml # Bowel Movements 1 Laboratory Tests 10/19/16 04:20: White Blood Count 5.1, Red Blood Count 2.80L, Hemoglobin 8.4L, Hematocrit 25.4L , Mean Corpuscular Volume 91, Mean Corpuscular Hemoglobin 30.2, Mean Corpuscular Hemoglobin Concent 33.2, Red Cell Distribution Width 13.7, Platelet Count 183, Mean Platelet Volume 5.1L, Neutrophils (%) (Auto) 63.8, Lymphocytes ( %) (Auto) 22.9, Monocytes (%) (Auto) 8.3, Eosinophils (%) (Auto) 4.3H, Basophils (%) (Auto) 0.8, Sodium Level 140, Potassium Level 4.0, Chloride Level 100, Carbon Dioxide Level 26, Anion Gap 14, Blood Urea Nitrogen 64H, Creatinine 3.1H, Estimat Glomerular Filtration Rate , Glucose Level 111H, Calcium Level 8.6 , Phosphorus Level 3.6, Magnesium Level 1.6L 10/19/16 11:00: Creatinine 3.1H, Estimat Glomerular Filtration Rate , Urine Collection Time 24, Urine Total Volume 1000, Urine Creatinine 73, Urine Creatinine 24 Hour 730L, Patient Height Inches (Creat Clear) 66, Patient Weight Pounds (Creat Clear) 364 , Creatinine Clearance 11L Height (Feet): 5 Height (Inches): 6.00 Weight (Pounds): 364 General Appearance: morbidly obese EENT: PERRL/EOMI, pharynx normal Neck: non-tender, supple Cardiovascular: normal rate, regular rhythm, no gallop/murmur, no JVD Respiratory/Chest: chest wall non-tender, normal breath sounds, no respiratory distress Abdomen: non tender, soft, no mass Extremities: swelling Edema: no edema noted Arm (L), no edema noted Arm (R), 2+ Leg (L), 2+ Leg (R), 2+ Pedal (L), 2+ Pedal (R), 2+ Generalized Edema: severe edema Neurologic: refining engineer II-XII grossly normal, oriented x 3, responsive Skin: normal pigmentation Lymphatic: normal anterior cervical (L), normal anterior cervical (R), normal posterior cervical (L), normal posterior cervical (R), normal submandibular (L) , normal submandibular (R), normal supraclavicular (L), normal supraclavicular ( R), normal axillary (L), normal axillary (R), normal inguinal (L), normal inguinal (R), normal other Manny Nolan MD Oct 19, 2016 19:30
[2016-10-19 20:00] VITALS: BP 113/66
[2016-10-19] MEDS: LORazepam Inj 2mg/ml 1ml IV PRN (21:18)
[2016-10-20] VITALS (7 sets, daily range): BP systolic 101–122; BP diastolic 53–76
[2016-10-20] MEDS: Ertapenem 0.5 GM in NS 55 ML IVPB SCH (01:08)
[2016-10-20 08:09] LABS: MEAN CORPUSCULAR HEMOGLOBIN 29.5 PG (27.0-31.0); MEAN CORPUSCULAR HGB CONC 32.1 G/DL (32.0-36.0); MEAN CORPUSCULAR VOLUME 92 FL (80-99); MEAN PLATELET VOLUME 5.5 FL (6.5-10.1); PLATELET COUNT 182 K/UL (150-450); RED BLOOD COUNT 2.66 M/UL (4.20-5.40); RED CELL DISTRIBUTION WIDTH 14.2 % (11.6-14.8); WHITE BLOOD COUNT 4.4 K/UL (4.8-10.8)
[2016-10-20 08:29] LABS: INR 1.2 (0.9-1.1); PROTHROMBIN TIME 12.2 SEC (9.30-11.50)
[2016-10-20] MEDS ORDERED: Tubing IV Secondary IV ONE ×2 (08:50→09:24)
[2016-10-20 08:55] LABS: ALANINE AMINOTRANSFERASE 5 U/L (3-33); ALBUMIN/GLOBULIN RATIO 0.7 (1.0-2.7); ANION GAP 12 (5-15); ASPARTATE AMINO TRANSFERASE 10 U/L (5-40); CALCIUM 8.2 mg/dL (8.6-10.2); CARBON DIOXIDE 28 mEQ/L (20-30); CHLORIDE 99 mEQ/L (98-107); CREATININE 3.1 mg/dL (0.5-0.9); HEMOLYSIS 2; MAGNESIUM 1.6 mg/dL (1.7-2.5); PHOSPHORUS 3.9 mg/dL (2.5-4.8); POTASSIUM 3.5 mEQ/L (3.4-4.9); SODIUM 139 mEQ/L (135-145)
[2016-10-20] MEDS: Heparin 5000 units/ml inj SUBQ SCH ×2 (09:18→21:42)
[2016-10-20] MEDS: Revatio 20mg tab ORAL SCH ×3 (09:19→17:47)
[2016-10-20] MEDS: Allopurinol 100mg Tab ORAL SCH (09:20)
[2016-10-20] MEDS ORDERED: NS 275ml ONE (09:24)
--- NOTE | 2016-10-20 10:03 | General Progress Note ---
Assessment/Plan Status: stable Assessment/Plan CKD- and acute renal failure Acute respiratory failure s/p Trach Obese COPD , CHF, Diastolic MINA UTI Anemia GI Bleed, GI bleeding At Fib Pulm HTN h/o Low B12 Plan: mag- K supplement One dose IV Iron add allopurinol 24 H U for CrCl being collected AGAIN- doubt the first one correct Per consultants Subjective ROS Limited/Unobtainable: No Constitutional: Reports: malaise Allergies: Coded Allergies: AMOXICILLIN (Verified Allergy, Mild, RASH, 09/30/16) MORPHINE (Unverified Allergy, Unknown, 09/30/16) PENICILLINS (Unverified Allergy, Unknown, 09/30/16) Objective Last 24 Hour Vital Signs Date Time Temp Pulse Resp B/P (MAP) Pulse Ox O2 Delivery O2 Flow Rate FiO2 10/20/16 08:32 57 17 30 10/20/16 08:00 56 10/20/16 08:00 97.3 63 20 102/53 98 Mechanical Ventilator 30 10/20/16 06:36 49 16 30 10/20/16 05:12 54 16 30 10/20/16 04:00 30 10/20/16 04:00 98.1 76 18 122/68 99 Mechanical Ventilator 30 10/20/16 04:00 57 10/20/16 03:30 58 16 30 10/20/16 00:45 55 15 30 10/20/16 00:00 30 10/20/16 00:00 98.0 81 16 118/76 99 Mechanical Ventilator 30 10/20/16 00:00 51 10/19/16 23:30 53 16 30 10/19/16 21:16 62 15 30 10/19/16 20:00 65 10/19/16 20:00 98.8 75 18 113/66 99 Mechanical Ventilator 30 10/19/16 20:00 30 10/19/16 19:30 78 23 30 10/19/16 17:15 66 17 30 10/19/16 16:00 98.6 82 18 132/66 99 Mechanical Ventilator 30 10/19/16 15:31 68 10/19/16 15:29 30 10/19/16 15:29 69 10/19/16 15:11 78 17 30 10/19/16 12:45 84 19 30 10/19/16 11:55 98.2 77 18 114/62 98 Mechanical Ventilator 30 10/19/16 11:53 75 10/19/16 11:49 77 10/19/16 11:49 30 10/19/16 10:37 71 18 30 Laboratory Tests 10/19/16 11:00: Urine Collection Time 24, Urine Total Volume 1000, Urine Creatinine 73, Urine Creatinine 24 Hour 730L, Patient Height Inches (Creat Clear) 66, Patient Weight Pounds (Creat Clear) 364, Creatinine Clearance 11L, Creatinine 3.1H, Estimat Glomerular Filtration Rate 10/20/16 07:15: Creatinine 3.1H, Estimat Glomerular Filtration Rate , White Blood Count 4.4L, Red Blood Count 2.66L, Hemoglobin 7.9L, Hematocrit 24.5L, Mean Corpuscular Volume 92, Mean Corpuscular Hemoglobin 29.5, Mean Corpuscular Hemoglobin Concent 32.1, Red Cell Distribution Width 14.2, Platelet Count 182, Mean Platelet Volume 5.5L, Neutrophils (%) (Auto) , Lymphocytes (%) (Auto) , Monocytes (%) (Auto) , Eosinophils (%) (Auto) , Basophils (%) (Auto) , Neutrophils % (Manual) [Pending], Lymphocytes % (Manual) [Pending], Platelet Estimate [Pending], Platelet Morphology [Pending], Prothrombin Time 12.2H, Prothromb Time International Ratio 1.2H, Activated Partial Thromboplast Time 27 , Sodium Level 139, Potassium Level 3.5, Chloride Level 99, Carbon Dioxide Level 28, Anion Gap 12, Blood Urea Nitrogen 64H, Glucose Level 104, Calcium Level 8.2L, Phosphorus Level 3.9, Magnesium Level 1.6L, Total Bilirubin 0.2, Aspartate Amino Transf (AST/SGOT) 10, Alanine Aminotransferase (ALT/SGPT) 5, Alkaline Phosphatase 58, Total Protein 6.0L, Albumin 2.6L, Globulin 3.4, Albumin /Globulin Ratio 0.7L Height (Feet): 5 Height (Inches): 6.00 Weight (Pounds): 364 General Appearance: no apparent distress Objective no other changes COURTNEY LOPEZ Oct 20, 2016 10:03
[2016-10-20 10:12] LABS: BAND NEUTROPHILS % (MANUAL) 0 % (0-8); BASOPHILS % (MANUAL) 0 % (0-2); EOSINOPHILS % (MANUAL) 1 % (0-3); HYPOCHROMASIA 1+; LYMPHOCYTES % (MANUAL) 29 % (20-45); NEUTROPHILS % (MANUAL) 65 % (45-75); PLATELET ESTIMATE ADEQUATE; PLATELET MORPHOLOGY NORMAL; TOTAL CELLS COUNTED 100
[2016-10-20] MEDS ORDERED: KCl 10% 40mEq/30ml liquid NG ONE (10:15)
--- NOTE | 2016-10-20 10:54 | Pulmonology Progress Note ---
Assessment/Plan Problems: (1) Chronic respiratory failure (2) Urinary tract infection (3) MINA (obstructive sleep apnea) (4) Morbid obesity (5) Pickwickian syndrome Respiratory: monitor respiratory rate, adjust FIO2, CXR, ABG Cardiac: stop pressors, continue to monitor HR/BP Renal: F/U I&O, other - continue lasix Infectious Disease: check cultures Gastrointestinal: continue feedings/current rate Endocrine: monitor blood sugar, check TSH, continue sliding scale insulin Hematologic: monitor H/H, transfuse if hgb<8.5 Neurologic: PRN Ativan, PRN Morphine, keep patient comfortable Prophylaxis: Protonix, Heparin Notes Reviewed: growth hacker, cardio, renal 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: nurses, consultants, correctional counselor/case manager Subjective ROS Limited/Unobtainable: No Interval Events: late note for 10/19/16 Allergies: Coded Allergies: AMOXICILLIN (Verified Allergy, Mild, RASH, 09/30/16) MORPHINE (Unverified Allergy, Unknown, 09/30/16) PENICILLINS (Unverified Allergy, Unknown, 09/30/16) Objective Last 24 Hour Vital Signs Date Time Temp Pulse Resp B/P (MAP) Pulse Ox O2 Delivery O2 Flow Rate FiO2 10/20/16 10:41 66 17 30 10/20/16 08:32 57 17 30 10/20/16 08:00 56 10/20/16 08:00 97.3 63 20 102/53 98 Mechanical Ventilator 30 10/20/16 06:36 49 16 30 10/20/16 05:12 54 16 30 10/20/16 04:00 30 10/20/16 04:00 98.1 76 18 122/68 99 Mechanical Ventilator 30 10/20/16 04:00 57 10/20/16 03:30 58 16 30 10/20/16 00:45 55 15 30 10/20/16 00:00 30 10/20/16 00:00 98.0 81 16 118/76 99 Mechanical Ventilator 30 10/20/16 00:00 51 10/19/16 23:30 53 16 30 10/19/16 21:16 62 15 30 10/19/16 20:00 65 10/19/16 20:00 98.8 75 18 113/66 99 Mechanical Ventilator 30 10/19/16 20:00 30 10/19/16 19:30 78 23 30 10/19/16 17:15 66 17 30 10/19/16 16:00 98.6 82 18 132/66 99 Mechanical Ventilator 30 10/19/16 15:31 68 10/19/16 15:29 30 10/19/16 15:29 69 10/19/16 15:11 78 17 30 10/19/16 12:45 84 19 30 10/19/16 11:55 98.2 77 18 114/62 98 Mechanical Ventilator 30 10/19/16 11:53 75 10/19/16 11:49 77 10/19/16 11:49 30 General Appearance: WD/WN HEENT: normocephalic, atraumatic Respiratory/Chest: chest wall non-tender Breasts: no masses Cardiovascular: normal peripheral pulses Abdomen: normal bowel sounds, soft, non tender Genitourinary: normal external genitalia Extremities: no clubbing Skin: no rash, no lesions Lymphatic: no neck adenopathy Laboratory Tests 10/19/16 11:00: Urine Collection Time 24, Urine Total Volume 1000, Urine Creatinine 73, Urine Creatinine 24 Hour 730L, Patient Height Inches (Creat Clear) 66, Patient Weight Pounds (Creat Clear) 364, Creatinine Clearance 11L, Creatinine 3.1H, Estimat Glomerular Filtration Rate 10/20/16 07:15: Creatinine 3.1H, Estimat Glomerular Filtration Rate , White Blood Count 4.4L, Red Blood Count 2.66L, Hemoglobin 7.9L, Hematocrit 24.5L, Mean Corpuscular Volume 92, Mean Corpuscular Hemoglobin 29.5, Mean Corpuscular Hemoglobin Concent 32.1, Red Cell Distribution Width 14.2, Platelet Count 182, Mean Platelet Volume 5.5L, Neutrophils (%) (Auto) , Lymphocytes (%) (Auto) , Monocytes (%) (Auto) , Eosinophils (%) (Auto) , Basophils (%) (Auto) , Differential Total Cells Counted 100, Neutrophils % (Manual) 65, Lymphocytes % ( Manual) 29, Monocytes % (Manual) 5, Eosinophils % (Manual) 1, Basophils % ( Manual) 0, Band Neutrophils 0, Platelet Estimate Adequate, Platelet Morphology Normal, Hypochromasia 1+, Prothrombin Time 12.2H, Prothromb Time International Ratio 1.2H, Activated Partial Thromboplast Time 27, Sodium Level 139, Potassium Level 3.5, Chloride Level 99, Carbon Dioxide Level 28, Anion Gap 12, Blood Urea Nitrogen 64H, Glucose Level 104, Calcium Level 8.2L, Phosphorus Level 3.9, Magnesium Level 1.6L, Total Bilirubin 0.2, Aspartate Amino Transf (AST/SGOT) 10 , Alanine Aminotransferase (ALT/SGPT) 5, Alkaline Phosphatase 58, Total Protein 6.0L, Albumin 2.6L, Globulin 3.4, Albumin/Globulin Ratio 0.7L Current Medications Medications (Trade) Dose Ordered Sig/Kalyn Route PRN Reason Start Time Stop Time Status Last Admin Dose Admin Acetaminophen (Tylenol) 650 mg Q4H PRN ORAL fever 10/16/16 06:00 11/15/16 05:59 10/19/16 18:18 Albuterol/ Ipratropium (DuoNeb 0.5-3(2.5)mg/3ml) 3 ml Q4H PRN HHN Shortness of Breath 10/16/16 17:45 10/21/16 17:44 10/16/16 17:47 Allopurinol (Zyloprim) 100 mg DAILY ORAL 10/18/16 09:00 11/17/16 08:59 10/20/16 09:20 Dextrose (Dextrose 50%) STAT PRN IV Hypoglycemia 10/16/16 06:00 11/15/16 05:59 Ertapenem 0.5 gm/ Sodium Chloride 55 ml @ 110 mls/hr Q24H IVPB 10/17/16 02:00 10/22/16 01:59 10/20/16 01:08 Furosemide (Lasix) 20 mg BID ORAL 10/16/16 09:00 11/15/16 08:59 10/20/16 09:19 Guaifenesin (Robitussin) 200 mg Q4H PRN ORAL For Cough 10/19/16 15:15 11/18/16 15:14 10/19/16 15:56 Heparin Sodium (Porcine) (Heparin 5000 units/ml) 5,000 units EVERY 12 HOURS SUBQ 10/16/16 09:00 11/15/16 08:59 10/20/16 09:18 Iron Sucrose 200 mg/Sodium Chloride 120 ml @ 240 mls/hr ONCE ONCE IV 10/20/16 11:30 10/20/16 11:59 Lansoprazole (Prevacid) 30 mg DAILY ORAL 10/16/16 12:00 11/15/16 11:59 10/20/16 09:19 Lorazepam (Ativan 2mg/ml 1ml) 0.5 mg Q4H PRN IV For Anxiety 10/16/16 06:00 10/23/16 05:59 10/19/16 21:18 Magnesium Sulfate 100 ml @ 100 mls/hr Q1H IVPB 10/20/16 10:15 10/20/16 12:14 Ondansetron HCl (Zofran) 4 mg Q6H PRN IVP Nausea & Vomiting 10/16/16 06:00 11/15/16 05:59 Polyethylene Glycol (Miralax) 17 gm HSPRN PRN ORAL Constipation 10/16/16 06:00 11/15/16 05:59 Sildenafil Citrate (Revatio) 20 mg THREE TIMES A DAY ORAL 10/16/16 09:00 11/15/16 08:59 10/20/16 09:19 Zolpidem Tartrate (Ambien) 5 mg HSPRN PRN ORAL Insomnia 10/16/16 06:00 10/23/16 05:59 10/17/16 20:47 ARASH MIRANDA Oct 20, 2016 10:54
--- NOTE | 2016-10-20 10:55 | Pulmonology Progress Note ---
Assessment/Plan Problems: (1) Chronic respiratory failure (2) Urinary tract infection (3) MINA (obstructive sleep apnea) (4) Morbid obesity (5) Pickwickian syndrome Respiratory: monitor respiratory rate Cardiac: start pressors, continue to monitor HR/BP Renal: F/U I&O, keep IV fluid Infectious Disease: check cultures, continue antibiotics, add antibiotics Gastrointestinal: continue feedings/current rate Endocrine: monitor blood sugar, check TSH, continue sliding scale insulin Hematologic: transfuse if hgb<8.5 Neurologic: PRN Ativan, PRN Morphine, keep patient comfortable Prophylaxis: Protonix Disposition: keep in ICU Notes Reviewed: cardio 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: nurses Subjective ROS Limited/Unobtainable: No Constitutional: Reports: no symptoms HEENT: Repors: no symptoms Respiratory: Reports: no symptoms Allergies: Coded Allergies: AMOXICILLIN (Verified Allergy, Mild, RASH, 09/30/16) MORPHINE (Unverified Allergy, Unknown, 09/30/16) PENICILLINS (Unverified Allergy, Unknown, 09/30/16) Objective Last 24 Hour Vital Signs Date Time Temp Pulse Resp B/P (MAP) Pulse Ox O2 Delivery O2 Flow Rate FiO2 10/20/16 10:41 66 17 30 10/20/16 08:32 57 17 30 10/20/16 08:00 56 10/20/16 08:00 97.3 63 20 102/53 98 Mechanical Ventilator 30 10/20/16 06:36 49 16 30 10/20/16 05:12 54 16 30 10/20/16 04:00 30 10/20/16 04:00 98.1 76 18 122/68 99 Mechanical Ventilator 30 10/20/16 04:00 57 10/20/16 03:30 58 16 30 10/20/16 00:45 55 15 30 10/20/16 00:00 30 10/20/16 00:00 98.0 81 16 118/76 99 Mechanical Ventilator 30 10/20/16 00:00 51 10/19/16 23:30 53 16 30 10/19/16 21:16 62 15 30 10/19/16 20:00 65 10/19/16 20:00 98.8 75 18 113/66 99 Mechanical Ventilator 30 10/19/16 20:00 30 10/19/16 19:30 78 23 30 10/19/16 17:15 66 17 30 10/19/16 16:00 98.6 82 18 132/66 99 Mechanical Ventilator 30 10/19/16 15:31 68 10/19/16 15:29 30 10/19/16 15:29 69 10/19/16 15:11 78 17 30 10/19/16 12:45 84 19 30 10/19/16 11:55 98.2 77 18 114/62 98 Mechanical Ventilator 30 10/19/16 11:53 75 10/19/16 11:49 77 10/19/16 11:49 30 General Appearance: WD/WN HEENT: normocephalic, atraumatic Respiratory/Chest: chest wall non-tender, lungs clear Breasts: no masses Cardiovascular: normal peripheral pulses, normal rate Abdomen: normal bowel sounds, soft, non tender Extremities: no cyanosis, no clubbing Skin: no ulcers Neurologic/Psychiatric: responsive Lymphatic: no neck adenopathy, no groin adenopathy Musculoskeletal: no effusion Laboratory Tests 10/19/16 11:00: Urine Collection Time 24, Urine Total Volume 1000, Urine Creatinine 73, Urine Creatinine 24 Hour 730L, Patient Height Inches (Creat Clear) 66, Patient Weight Pounds (Creat Clear) 364, Creatinine Clearance 11L, Creatinine 3.1H, Estimat Glomerular Filtration Rate 10/20/16 07:15: Creatinine 3.1H, Estimat Glomerular Filtration Rate , White Blood Count 4.4L, Red Blood Count 2.66L, Hemoglobin 7.9L, Hematocrit 24.5L, Mean Corpuscular Volume 92, Mean Corpuscular Hemoglobin 29.5, Mean Corpuscular Hemoglobin Concent 32.1, Red Cell Distribution Width 14.2, Platelet Count 182, Mean Platelet Volume 5.5L, Neutrophils (%) (Auto) , Lymphocytes (%) (Auto) , Monocytes (%) (Auto) , Eosinophils (%) (Auto) , Basophils (%) (Auto) , Differential Total Cells Counted 100, Neutrophils % (Manual) 65, Lymphocytes % ( Manual) 29, Monocytes % (Manual) 5, Eosinophils % (Manual) 1, Basophils % ( Manual) 0, Band Neutrophils 0, Platelet Estimate Adequate, Platelet Morphology Normal, Hypochromasia 1+, Prothrombin Time 12.2H, Prothromb Time International Ratio 1.2H, Activated Partial Thromboplast Time 27, Sodium Level 139, Potassium Level 3.5, Chloride Level 99, Carbon Dioxide Level 28, Anion Gap 12, Blood Urea Nitrogen 64H, Glucose Level 104, Calcium Level 8.2L, Phosphorus Level 3.9, Magnesium Level 1.6L, Total Bilirubin 0.2, Aspartate Amino Transf (AST/SGOT) 10 , Alanine Aminotransferase (ALT/SGPT) 5, Alkaline Phosphatase 58, Total Protein 6.0L, Albumin 2.6L, Globulin 3.4, Albumin/Globulin Ratio 0.7L Current Medications Medications (Trade) Dose Ordered Sig/Kalyn Route PRN Reason Start Time Stop Time Status Last Admin Dose Admin Acetaminophen (Tylenol) 650 mg Q4H PRN ORAL fever 10/16/16 06:00 11/15/16 05:59 10/19/16 18:18 Albuterol/ Ipratropium (DuoNeb 0.5-3(2.5)mg/3ml) 3 ml Q4H PRN HHN Shortness of Breath 10/16/16 17:45 10/21/16 17:44 10/16/16 17:47 Allopurinol (Zyloprim) 100 mg DAILY ORAL 10/18/16 09:00 11/17/16 08:59 10/20/16 09:20 Dextrose (Dextrose 50%) STAT PRN IV Hypoglycemia 10/16/16 06:00 11/15/16 05:59 Ertapenem 0.5 gm/ Sodium Chloride 55 ml @ 110 mls/hr Q24H IVPB 10/17/16 02:00 10/22/16 01:59 10/20/16 01:08 Furosemide (Lasix) 20 mg BID ORAL 10/16/16 09:00 11/15/16 08:59 10/20/16 09:19 Guaifenesin (Robitussin) 200 mg Q4H PRN ORAL For Cough 10/19/16 15:15 11/18/16 15:14 10/19/16 15:56 Heparin Sodium (Porcine) (Heparin 5000 units/ml) 5,000 units EVERY 12 HOURS SUBQ 10/16/16 09:00 11/15/16 08:59 10/20/16 09:18 Iron Sucrose 200 mg/Sodium Chloride 120 ml @ 240 mls/hr ONCE ONCE IV 10/20/16 11:30 10/20/16 11:59 Lansoprazole (Prevacid) 30 mg DAILY ORAL 10/16/16 12:00 11/15/16 11:59 10/20/16 09:19 Lorazepam (Ativan 2mg/ml 1ml) 0.5 mg Q4H PRN IV For Anxiety 10/16/16 06:00 10/23/16 05:59 10/19/16 21:18 Magnesium Sulfate 100 ml @ 100 mls/hr Q1H IVPB 10/20/16 10:15 10/20/16 12:14 Ondansetron HCl (Zofran) 4 mg Q6H PRN IVP Nausea & Vomiting 10/16/16 06:00 11/15/16 05:59 Polyethylene Glycol (Miralax) 17 gm HSPRN PRN ORAL Constipation 10/16/16 06:00 11/15/16 05:59 Sildenafil Citrate (Revatio) 20 mg THREE TIMES A DAY ORAL 10/16/16 09:00 11/15/16 08:59 10/20/16 09:19 Zolpidem Tartrate (Ambien) 5 mg HSPRN PRN ORAL Insomnia 10/16/16 06:00 10/23/16 05:59 10/17/16 20:47 ARASH MIRANDA Oct 20, 2016 10:55
[2016-10-20] MEDS ORDERED: Iron Sucrose 200 MG in NS 110 ML IV ONE (11:30)
--- NOTE | 2016-10-20 17:38 | Infectious Diseases Prog Note ---
Assessment/Plan Assessment/Plan A: ASSESSMENT: The patient is a 76-year-old female with UTI ESBL Kleb History of upper GI bleed. History of sepsis. History of bilateral lower extremities with edema. History of CKD. History of ventilator-dependent respiratory failure History of recurrent urinary tract infection. PLAN: will continue the patient on IV Invanz day # 4 /7 Monitor CBC Monitor BMP Continue ventilator support as per Pulmonary. Subjective Constitutional: Denies: no symptoms, fever, chills, fatigue, anorexia, drenching sweats, other Allergies: Coded Allergies: AMOXICILLIN (Verified Allergy, Mild, RASH, 09/30/16) MORPHINE (Unverified Allergy, Unknown, 09/30/16) PENICILLINS (Unverified Allergy, Unknown, 09/30/16) Objective Vital Signs Last 24 Hour Vital Signs Date Time Temp Pulse Resp B/P (MAP) Pulse Ox O2 Delivery O2 Flow Rate FiO2 10/20/16 17:30 97.9 67 20 105/72 98 Mechanical Ventilator 30 10/20/16 17:23 80 21 30 10/20/16 16:00 43 10/20/16 15:12 63 17 30 10/20/16 12:45 68 17 30 10/20/16 12:38 64 10/20/16 12:00 30 10/20/16 12:00 98.1 63 20 116/70 98 Mechanical Ventilator 30 10/20/16 10:41 66 17 30 10/20/16 08:32 57 17 30 10/20/16 08:00 56 10/20/16 08:00 97.3 63 20 102/53 98 Mechanical Ventilator 30 10/20/16 06:36 49 16 30 10/20/16 05:12 54 16 30 10/20/16 04:00 30 10/20/16 04:00 98.1 76 18 122/68 99 Mechanical Ventilator 30 10/20/16 04:00 57 10/20/16 03:30 58 16 30 10/20/16 00:45 55 15 30 10/20/16 00:00 30 10/20/16 00:00 98.0 81 16 118/76 99 Mechanical Ventilator 30 10/20/16 00:00 51 10/19/16 23:30 53 16 30 10/19/16 21:16 62 15 30 10/19/16 20:00 65 10/19/16 20:00 98.8 75 18 113/66 99 Mechanical Ventilator 30 10/19/16 20:00 30 10/19/16 19:30 78 23 30 Height (Feet): 5 Height (Inches): 6.00 Weight (Pounds): 364 HEENT: atraumatic Respiratory/Chest: no respiratory distress Cardiovascular: regularly irregular Abdomen: non distended Laboratory Tests Test 10/20/16 07:15 White Blood Count 4.4 K/UL (4.8-10.8) L Red Blood Count 2.66 M/UL (4.20-5.40) L Hemoglobin 7.9 G/DL (12.0-16.0) L Hematocrit 24.5 % (37.0-47.0) L Mean Corpuscular Volume 92 FL (80-99) Mean Corpuscular Hemoglobin 29.5 PG (27.0-31.0) Mean Corpuscular Hemoglobin Concent 32.1 G/DL (32.0-36.0) Red Cell Distribution Width 14.2 % (11.6-14.8) Platelet Count 182 K/UL (150-450) Mean Platelet Volume 5.5 FL (6.5-10.1) L Neutrophils (%) (Auto) % (45.0-75.0) Lymphocytes (%) (Auto) % (20.0-45.0) Monocytes (%) (Auto) % (1.0-10.0) Eosinophils (%) (Auto) % (0.0-3.0) Basophils (%) (Auto) % (0.0-2.0) Differential Total Cells Counted 100 Neutrophils % (Manual) 65 % (45-75) Lymphocytes % (Manual) 29 % (20-45) Monocytes % (Manual) 5 % (1-10) Eosinophils % (Manual) 1 % (0-3) Basophils % (Manual) 0 % (0-2) Band Neutrophils 0 % (0-8) Platelet Estimate Adequate Platelet Morphology Normal Hypochromasia 1+ Prothrombin Time 12.2 SEC (9.30-11.50) H Prothromb Time International Ratio 1.2 (0.9-1.1) H Activated Partial Thromboplast Time 27 SEC (23-33) Sodium Level 139 mEQ/L (135-145) Potassium Level 3.5 mEQ/L (3.4-4.9) Chloride Level 99 mEQ/L (98-107) Carbon Dioxide Level 28 mEQ/L (20-30) Anion Gap 12 (5-15) Blood Urea Nitrogen 64 mg/dL (7-23) H Creatinine 3.1 mg/dL (0.5-0.9) H Estimat Glomerular Filtration Rate mL/min (>60) Glucose Level 104 mg/dL (74-106) Calcium Level 8.2 mg/dL (8.6-10.2) L Phosphorus Level 3.9 mg/dL (2.5-4.8) Magnesium Level 1.6 mg/dL (1.7-2.5) L Total Bilirubin 0.2 mg/dL (0.0-1.2) Aspartate Amino Transf (AST/SGOT) 10 U/L (5-40) Alanine Aminotransferase (ALT/SGPT) 5 U/L (3-33) Alkaline Phosphatase 58 U/L (35-104) Total Protein 6.0 g/dL (6.6-8.7) L Albumin 2.6 g/dL (3.5-5.2) L Globulin 3.4 g/dL Albumin/Globulin Ratio 0.7 (1.0-2.7) L Current Medications Medications (Trade) Dose Ordered Sig/Kalyn Route PRN Reason Start Time Stop Time Status Last Admin Dose Admin Acetaminophen (Tylenol) 650 mg Q4H PRN ORAL fever 10/16/16 06:00 11/15/16 05:59 10/19/16 18:18 Albuterol/ Ipratropium (DuoNeb 0.5-3(2.5)mg/3ml) 3 ml Q4H PRN HHN Shortness of Breath 10/16/16 17:45 10/21/16 17:44 10/16/16 17:47 Allopurinol (Zyloprim) 100 mg DAILY ORAL 10/18/16 09:00 11/17/16 08:59 10/20/16 09:20 Dextrose (Dextrose 50%) STAT PRN IV Hypoglycemia 10/16/16 06:00 11/15/16 05:59 Ertapenem 0.5 gm/ Sodium Chloride 55 ml @ 110 mls/hr Q24H IVPB 10/17/16 02:00 10/22/16 01:59 10/20/16 01:08 Furosemide (Lasix) 20 mg BID ORAL 10/16/16 09:00 11/15/16 08:59 10/20/16 09:19 Guaifenesin (Robitussin) 200 mg Q4H PRN ORAL For Cough 10/19/16 15:15 11/18/16 15:14 10/19/16 15:56 Heparin Sodium (Porcine) (Heparin 5000 units/ml) 5,000 units EVERY 12 HOURS SUBQ 10/16/16 09:00 11/15/16 08:59 10/20/16 09:18 Lansoprazole (Prevacid) 30 mg DAILY ORAL 10/16/16 12:00 11/15/16 11:59 10/20/16 09:19 Lorazepam (Ativan 2mg/ml 1ml) 0.5 mg Q4H PRN IV For Anxiety 10/16/16 06:00 10/23/16 05:59 10/19/16 21:18 Ondansetron HCl (Zofran) 4 mg Q6H PRN IVP Nausea & Vomiting 10/16/16 06:00 11/15/16 05:59 Polyethylene Glycol (Miralax) 17 gm HSPRN PRN ORAL Constipation 10/16/16 06:00 11/15/16 05:59 Sildenafil Citrate (Revatio) 20 mg THREE TIMES A DAY ORAL 10/16/16 09:00 11/15/16 08:59 10/20/16 13:52 Zolpidem Tartrate (Ambien) 5 mg HSPRN PRN ORAL Insomnia 10/16/16 06:00 10/23/16 05:59 10/17/16 20:47 LINDSEY HILL M.D. Oct 20, 2016 17:38
--- NOTE | 2016-10-20 19:23 | Cardiology Progress Note ---
Assessment/Plan Assessment/Plan 1. Acute on chronic respiratory failure. 2. Anemia. 3. diastolic heart failure. 4. Permanent atrial fibrillation. 5. Gastrointestinal bleeding history, now off anticoagulation. 6. Renal insufficiency. 7. pulm htn hr seem chase has sig edema lasix swithc to [po med for pulm htn soon Subjective ROS Limited/Unobtainable: Yes Objective Last 24 Hour Vital Signs Date Time Temp Pulse Resp B/P (MAP) Pulse Ox O2 Delivery O2 Flow Rate FiO2 10/20/16 17:30 97.9 67 20 105/72 98 Mechanical Ventilator 30 10/20/16 17:23 80 21 30 10/20/16 16:00 30 10/20/16 16:00 43 10/20/16 16:00 97.9 67 20 105/72 98 Mechanical Ventilator 30 10/20/16 15:12 63 17 30 10/20/16 12:45 68 17 30 10/20/16 12:38 64 10/20/16 12:00 30 10/20/16 12:00 98.1 63 20 116/70 98 Mechanical Ventilator 30 10/20/16 10:41 66 17 30 10/20/16 08:32 57 17 30 10/20/16 08:00 56 10/20/16 08:00 97.3 63 20 102/53 98 Mechanical Ventilator 30 10/20/16 06:36 49 16 30 10/20/16 05:12 54 16 30 10/20/16 04:00 30 10/20/16 04:00 98.1 76 18 122/68 99 Mechanical Ventilator 30 10/20/16 04:00 57 10/20/16 03:30 58 16 30 10/20/16 00:45 55 15 30 10/20/16 00:00 30 10/20/16 00:00 98.0 81 16 118/76 99 Mechanical Ventilator 30 10/20/16 00:00 51 10/19/16 23:30 53 16 30 10/19/16 21:16 62 15 30 10/19/16 20:00 65 10/19/16 20:00 98.8 75 18 113/66 99 Mechanical Ventilator 30 10/19/16 20:00 30 10/19/16 19:30 78 23 30 General Appearance: no apparent distress, alert, on vent, patient on isolation Intake and Output 10/20/16 10/21/16 19:00 07:00 Intake Total 200 ml Output Total 200 ml Balance 0 ml IV Total 200 ml Output Urine Total 200 ml # Bowel Movements 2 Laboratory Tests Test 10/20/16 07:15 White Blood Count 4.4 K/UL (4.8-10.8) L Red Blood Count 2.66 M/UL (4.20-5.40) L Hemoglobin 7.9 G/DL (12.0-16.0) L Hematocrit 24.5 % (37.0-47.0) L Mean Corpuscular Volume 92 FL (80-99) Mean Corpuscular Hemoglobin 29.5 PG (27.0-31.0) Mean Corpuscular Hemoglobin Concent 32.1 G/DL (32.0-36.0) Red Cell Distribution Width 14.2 % (11.6-14.8) Platelet Count 182 K/UL (150-450) Mean Platelet Volume 5.5 FL (6.5-10.1) L Neutrophils (%) (Auto) % (45.0-75.0) Lymphocytes (%) (Auto) % (20.0-45.0) Monocytes (%) (Auto) % (1.0-10.0) Eosinophils (%) (Auto) % (0.0-3.0) Basophils (%) (Auto) % (0.0-2.0) Differential Total Cells Counted 100 Neutrophils % (Manual) 65 % (45-75) Lymphocytes % (Manual) 29 % (20-45) Monocytes % (Manual) 5 % (1-10) Eosinophils % (Manual) 1 % (0-3) Basophils % (Manual) 0 % (0-2) Band Neutrophils 0 % (0-8) Platelet Estimate Adequate Platelet Morphology Normal Hypochromasia 1+ Prothrombin Time 12.2 SEC (9.30-11.50) H Prothromb Time International Ratio 1.2 (0.9-1.1) H Activated Partial Thromboplast Time 27 SEC (23-33) Sodium Level 139 mEQ/L (135-145) Potassium Level 3.5 mEQ/L (3.4-4.9) Chloride Level 99 mEQ/L (98-107) Carbon Dioxide Level 28 mEQ/L (20-30) Anion Gap 12 (5-15) Blood Urea Nitrogen 64 mg/dL (7-23) H Creatinine 3.1 mg/dL (0.5-0.9) H Estimat Glomerular Filtration Rate mL/min (>60) Glucose Level 104 mg/dL (74-106) Calcium Level 8.2 mg/dL (8.6-10.2) L Phosphorus Level 3.9 mg/dL (2.5-4.8) Magnesium Level 1.6 mg/dL (1.7-2.5) L Total Bilirubin 0.2 mg/dL (0.0-1.2) Aspartate Amino Transf (AST/SGOT) 10 U/L (5-40) Alanine Aminotransferase (ALT/SGPT) 5 U/L (3-33) Alkaline Phosphatase 58 U/L (35-104) Total Protein 6.0 g/dL (6.6-8.7) L Albumin 2.6 g/dL (3.5-5.2) L Globulin 3.4 g/dL Albumin/Globulin Ratio 0.7 (1.0-2.7) L BRIANA TELLES Oct 20, 2016 19:23
--- NOTE | 2016-10-20 20:39 | General Progress Note ---
Assessment/Plan Assessment/Plan 76 y/o female admitted with AMS and acute uti and acute on chronic renal failure : Problems: - acute uti - altered mental status - chronic hypercapenic respiratory failure/ s/p trach, now Vent dependent - anemia - CKD (acute on chronic) - mobid obesity - PAF - bradycardia - severe pulmonary hypertension - diastolic heart failure - MDD - history of right breast ca s/p lumpectomy - hyperurecemia - fluid overload Plan: - continue iv Ertapenam, ID consult - 24 hour urine collection per Dr. Cummings - Avoid nephrotoxic agents - fu cultures - DC pichardo - s/p transfusion of one unit of PRBC - pt ot - continue currents meds - vent support per DR. Rene - not on anticoagulation secodary to recent gi bleed - cardiology fu appreciated - VTE prophylaxis with SCDs - allopurinal added by nephrology -fu cultures - continue lasix 40 mg iv bid will dc to rehab once cleared by consultants discussed with nurse Subjective Date patient seen: Oct 20, 2016 Allergies: Coded Allergies: AMOXICILLIN (Verified Allergy, Mild, RASH, 09/30/16) MORPHINE (Unverified Allergy, Unknown, 09/30/16) PENICILLINS (Unverified Allergy, Unknown, 09/30/16) Objective Last 24 Hour Vital Signs Date Time Temp Pulse Resp B/P (MAP) Pulse Ox O2 Delivery O2 Flow Rate FiO2 10/20/16 19:24 75 17 30 10/20/16 17:30 97.9 67 20 105/72 98 Mechanical Ventilator 30 10/20/16 17:23 80 21 30 10/20/16 16:00 30 10/20/16 16:00 43 10/20/16 16:00 97.9 67 20 105/72 98 Mechanical Ventilator 30 10/20/16 15:12 63 17 30 10/20/16 12:45 68 17 30 10/20/16 12:38 64 10/20/16 12:00 30 10/20/16 12:00 98.1 63 20 116/70 98 Mechanical Ventilator 30 10/20/16 10:41 66 17 30 10/20/16 08:32 57 17 30 10/20/16 08:00 56 10/20/16 08:00 97.3 63 20 102/53 98 Mechanical Ventilator 30 10/20/16 06:36 49 16 30 10/20/16 05:12 54 16 30 10/20/16 04:00 30 10/20/16 04:00 98.1 76 18 122/68 99 Mechanical Ventilator 30 10/20/16 04:00 57 10/20/16 03:30 58 16 30 10/20/16 00:45 55 15 30 10/20/16 00:00 30 10/20/16 00:00 98.0 81 16 118/76 99 Mechanical Ventilator 30 10/20/16 00:00 51 10/19/16 23:30 53 16 30 10/19/16 21:16 62 15 30 Intake and Output 10/20/16 10/21/16 19:00 07:00 Intake Total 200 ml Output Total 200 ml Balance 0 ml IV Total 200 ml Output Urine Total 200 ml # Bowel Movements 2 Laboratory Tests 10/20/16 07:15: White Blood Count 4.4L, Red Blood Count 2.66L, Hemoglobin 7.9L, Hematocrit 24.5L , Mean Corpuscular Volume 92, Mean Corpuscular Hemoglobin 29.5, Mean Corpuscular Hemoglobin Concent 32.1, Red Cell Distribution Width 14.2, Platelet Count 182, Mean Platelet Volume 5.5L, Neutrophils (%) (Auto) , Lymphocytes (%) ( Auto) , Monocytes (%) (Auto) , Eosinophils (%) (Auto) , Basophils (%) (Auto) , Differential Total Cells Counted 100, Neutrophils % (Manual) 65, Lymphocytes % ( Manual) 29, Monocytes % (Manual) 5, Eosinophils % (Manual) 1, Basophils % ( Manual) 0, Band Neutrophils 0, Platelet Estimate Adequate, Platelet Morphology Normal, Hypochromasia 1+, Prothrombin Time 12.2H, Prothromb Time International Ratio 1.2H, Activated Partial Thromboplast Time 27, Sodium Level 139, Potassium Level 3.5, Chloride Level 99, Carbon Dioxide Level 28, Anion Gap 12, Blood Urea Nitrogen 64H, Creatinine 3.1H, Estimat Glomerular Filtration Rate , Glucose Level 104, Calcium Level 8.2L, Phosphorus Level 3.9, Magnesium Level 1.6L, Total Bilirubin 0.2, Aspartate Amino Transf (AST/SGOT) 10, Alanine Aminotransferase (ALT/SGPT) 5, Alkaline Phosphatase 58, Total Protein 6.0L, Albumin 2.6L, Globulin 3.4, Albumin/Globulin Ratio 0.7L Height (Feet): 5 Height (Inches): 6.00 Weight (Pounds): 364 General Appearance: no apparent distress, alert, obese, morbidly obese EENT: PERRL/EOMI, pharynx normal Neck: non-tender, supple, abnormal alignment Cardiovascular: normal rate, regular rhythm, no gallop/murmur, no JVD Respiratory/Chest: chest wall non-tender, normal breath sounds, no respiratory distress Extremities: non-tender, normal inspection, no calf tenderness Edema: no edema noted Arm (L), no edema noted Arm (R) Edema: severe edema Neurologic: member services representative II-XII grossly normal, oriented x 3, responsive Lymphatic: normal anterior cervical (L), normal anterior cervical (R), normal posterior cervical (L), normal posterior cervical (R), normal submandibular (L) , normal submandibular (R), normal supraclavicular (L), normal supraclavicular ( R), normal axillary (L), normal axillary (R), normal inguinal (L), normal inguinal (R), normal other Manny Nolan MD Oct 20, 2016 20:39
[2016-10-21] VITALS: BP 122/69
[2016-10-21] MEDS: Ertapenem 0.5 GM in NS 55 ML IVPB SCH (01:38)
[2016-10-21] MEDS: LORazepam Inj 2mg/ml 1ml IV PRN (02:28)
[2016-10-21 04:00] VITALS: BP 130/68
[2016-10-21 08:00] VITALS: BP 125/76
[2016-10-21] MEDS: Allopurinol 100mg Tab ORAL SCH (08:31)
[2016-10-21] MEDS: Revatio 20mg tab ORAL SCH ×2 (08:31→12:30)
[2016-10-21] MEDS: Heparin 5000 units/ml inj SUBQ SCH (08:34)
--- NOTE | 2016-10-21 08:56 | General Progress Note ---
Assessment/Plan Status: unchanged Assessment/Plan CKD- and acute renal failure Acute respiratory failure s/p Trach Obese COPD , CHF, Diastolic MINA UTI Anemia GI Bleed, GI bleeding At Fib Pulm HTN h/o Low B12 Plan: No labs today- transfused 10/20 mag- K supplement as needed One dose IV Iron add allopurinol 24 H U for CrCl being collected AGAIN- doubt the first one correct Per consultants Subjective ROS Limited/Unobtainable: No Allergies: Coded Allergies: AMOXICILLIN (Verified Allergy, Mild, RASH, 09/30/16) MORPHINE (Unverified Allergy, Unknown, 09/30/16) PENICILLINS (Unverified Allergy, Unknown, 09/30/16) Objective Last 24 Hour Vital Signs Date Time Temp Pulse Resp B/P (MAP) Pulse Ox O2 Delivery O2 Flow Rate FiO2 10/21/16 08:39 75 16 30 10/21/16 08:00 98.3 70 20 125/76 100 Mechanical Ventilator 30 10/21/16 07:11 62 16 30 10/21/16 05:18 69 17 30 10/21/16 04:00 98.2 70 18 130/68 98 Mechanical Ventilator 30 10/21/16 04:00 30 10/21/16 03:25 61 16 30 10/21/16 03:24 68 10/21/16 01:13 68 17 30 10/21/16 00:00 30 10/21/16 00:00 98.1 72 17 122/69 97 Mechanical Ventilator 30 10/20/16 23:52 71 16 30 10/20/16 23:50 75 10/20/16 21:12 64 21 30 10/20/16 20:00 98.1 68 18 101/60 97 Mechanical Ventilator 30 10/20/16 20:00 63 10/20/16 20:00 30 10/20/16 19:24 75 17 30 10/20/16 17:30 97.9 67 20 105/72 98 Mechanical Ventilator 30 10/20/16 17:23 80 21 30 10/20/16 16:00 30 10/20/16 16:00 43 10/20/16 16:00 97.9 67 20 105/72 98 Mechanical Ventilator 30 10/20/16 15:12 63 17 30 10/20/16 12:45 68 17 30 10/20/16 12:38 64 10/20/16 12:00 30 10/20/16 12:00 98.1 63 20 116/70 98 Mechanical Ventilator 30 10/20/16 10:41 66 17 30 Height (Feet): 5 Height (Inches): 6.00 Weight (Pounds): 364 General Appearance: no apparent distress Cardiovascular: normal rate Respiratory/Chest: decreased breath sounds Objective no other changes COURTNEY LOPEZ Oct 21, 2016 08:56
[2016-10-21] MEDS ORDERED: INVANZ1 GM IVPB (10:55)
--- NOTE | 2016-10-21 10:56 | Pulmonology Progress Note ---
Assessment/Plan Problems: (1) Chronic respiratory failure (2) Urinary tract infection (3) MINA (obstructive sleep apnea) (4) Morbid obesity (5) Pickwickian syndrome Respiratory: monitor respiratory rate, CXR Renal: F/U I&O Infectious Disease: continue antibiotics Gastrointestinal: continue feedings/current rate Endocrine: start insulin drip Hematologic: monitor H/H, transfuse if hgb<8.5 Neurologic: keep patient comfortable Affect: PRN ativan Prophylaxis: Protonix Notes Reviewed: cardio, renal 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: nurses, consultants, case liner Subjective ROS Limited/Unobtainable: No Constitutional: Reports: no symptoms HEENT: Repors: no symptoms Respiratory: Reports: no symptoms Allergies: Coded Allergies: AMOXICILLIN (Verified Allergy, Mild, RASH, 09/30/16) MORPHINE (Unverified Allergy, Unknown, 09/30/16) PENICILLINS (Unverified Allergy, Unknown, 09/30/16) Objective Last 24 Hour Vital Signs Date Time Temp Pulse Resp B/P (MAP) Pulse Ox O2 Delivery O2 Flow Rate FiO2 10/21/16 10:39 72 16 30 10/21/16 08:39 75 16 30 10/21/16 08:00 98.3 70 20 125/76 100 Mechanical Ventilator 30 10/21/16 08:00 60 10/21/16 08:00 30 10/21/16 07:11 62 16 30 10/21/16 05:18 69 17 30 10/21/16 04:00 98.2 70 18 130/68 98 Mechanical Ventilator 30 10/21/16 04:00 30 10/21/16 03:25 61 16 30 10/21/16 03:24 68 10/21/16 01:13 68 17 30 10/21/16 00:00 30 10/21/16 00:00 98.1 72 17 122/69 97 Mechanical Ventilator 30 10/20/16 23:52 71 16 30 10/20/16 23:50 75 10/20/16 21:12 64 21 30 10/20/16 20:00 98.1 68 18 101/60 97 Mechanical Ventilator 30 10/20/16 20:00 63 10/20/16 20:00 30 10/20/16 19:24 75 17 30 10/20/16 17:30 97.9 67 20 105/72 98 Mechanical Ventilator 30 10/20/16 17:23 80 21 30 10/20/16 16:00 30 10/20/16 16:00 43 10/20/16 16:00 97.9 67 20 105/72 98 Mechanical Ventilator 30 10/20/16 15:12 63 17 30 10/20/16 12:45 68 17 30 10/20/16 12:38 64 10/20/16 12:00 30 10/20/16 12:00 98.1 63 20 116/70 98 Mechanical Ventilator 30 General Appearance: WD/WN HEENT: normocephalic, atraumatic Respiratory/Chest: chest wall non-tender, normal breath sounds Breasts: no masses Cardiovascular: normal peripheral pulses, normal rate, no gallop/murmur Abdomen: normal bowel sounds, soft, non tender Genitourinary: normal external genitalia Extremities: no cyanosis, no clubbing Skin: no rash Current Medications Medications (Trade) Dose Ordered Sig/Kalyn Route PRN Reason Start Time Stop Time Status Last Admin Dose Admin Acetaminophen (Tylenol) 650 mg Q4H PRN ORAL fever 10/16/16 06:00 11/15/16 05:59 10/19/16 18:18 Albuterol/ Ipratropium (DuoNeb 0.5-3(2.5)mg/3ml) 3 ml Q4H PRN HHN Shortness of Breath 10/16/16 17:45 10/21/16 17:44 10/16/16 17:47 Allopurinol (Zyloprim) 100 mg DAILY ORAL 10/18/16 09:00 11/17/16 08:59 10/21/16 08:31 Dextrose (Dextrose 50%) STAT PRN IV Hypoglycemia 10/16/16 06:00 11/15/16 05:59 Ertapenem 0.5 gm/ Sodium Chloride 55 ml @ 110 mls/hr Q24H IVPB 10/17/16 02:00 10/22/16 01:59 10/21/16 01:38 Furosemide (Lasix) 40 mg EVERY 12 HOURS IV 10/20/16 21:00 11/19/16 20:59 10/21/16 08:31 Guaifenesin (Robitussin) 200 mg Q4H PRN ORAL For Cough 10/19/16 15:15 11/18/16 15:14 10/19/16 15:56 Heparin Sodium (Porcine) (Heparin 5000 units/ml) 5,000 units EVERY 12 HOURS SUBQ 10/16/16 09:00 11/15/16 08:59 10/21/16 08:34 Lansoprazole (Prevacid) 30 mg DAILY ORAL 10/16/16 12:00 11/15/16 11:59 10/21/16 08:31 Lorazepam (Ativan 2mg/ml 1ml) 0.5 mg Q4H PRN IV For Anxiety 10/16/16 06:00 10/23/16 05:59 10/21/16 02:28 Ondansetron HCl (Zofran) 4 mg Q6H PRN IVP Nausea & Vomiting 10/16/16 06:00 11/15/16 05:59 10/21/16 00:18 Polyethylene Glycol (Miralax) 17 gm HSPRN PRN ORAL Constipation 10/16/16 06:00 11/15/16 05:59 Sildenafil Citrate (Revatio) 20 mg THREE TIMES A DAY ORAL 10/16/16 09:00 11/15/16 08:59 10/21/16 08:31 Zolpidem Tartrate (Ambien) 5 mg HSPRN PRN ORAL Insomnia 10/16/16 06:00 10/23/16 05:59 10/17/16 20:47 ARASH MIRANDA Oct 21, 2016 10:56
[2016-10-21 12:00] VITALS: BP 118/75
[2016-10-21 15:54] VITALS: BP 109/58
[2016-10-21] MEDS ORDERED: NS 275ml ONE (17:18)
[2016-10-21] MEDS ORDERED: Tubing IV Secondary IV ONE (17:18)
[2016-10-21] MEDS ORDERED: Tubing IV Blood Pump IV ONE (17:18)
--- NOTE | 2016-10-22 10:29 | Discharge Summary ---
Discharge Summary Hospital Course Date of Admission Oct 16, 2016 at 02:41 Date of Discharge Oct 21, 2016 at 17:19 Admitting Diagnosis ESBL UTI, encephalopathy HPI Kamille Christopher is a 76 year old female who was admitted on Oct 16, 2016 at 02:41 for Extended Spectrum Beta Lactamase, Urinary Tract Hospital Course [id number] Discharge Discharge Disposition Patient was discharged to SNF/Subacute Facility(03) Discharge Diagnoses: Angeline Swenson NP Oct 22, 2016 10:29
--- NOTE | 2016-10-22 17:30 | Discharge Summary 2 SIG ---
DATE OF ADMISSION: 10/16/2016 DATE OF DISCHARGE: 10/21/2016 CONSULTANTS: 1. Elidia Rene M.D. 2. Agustin Cmumings M.D. 3. Faizan Peralta M.D. 4. Luca Milan M.D. BRIEF HOSPITAL COURSE: The patient is a 76-year-old morbidly obese female with a history of chronic hypercapnic respiratory failure, on vent, status post tracheostomy recently, who was just discharged after treatment for respiratory failure and pneumonia. The patient returned to the ED secondary to altered mental status and she was found to have urinary tract infection. CT of the brain done was negative. Chest x-ray showed congestive heart failure She was admitted for IV antibiotics as the patient had a history of ESBL E. coli in the past. She was started on ertapenem pending culture results. She was continued on sildenafil for pulmonary hypertension and letrozole as the patient has a history of breast CA. The patient had episode of verbal unresponsiveness at detention, which was transient, likely representing toxic metabolic encephalopathy. She was continued on IV fluids and supportive care. The patient had diastolic heart failure and was given Lasix drip. Creatinine was mildly elevated from baseline. A 24-hour cardiac clearance was done. Total protein 152 in 24 hours. She had elevated uric acid of 12 and was given allopurinol. She had a drop in hemoglobin and on 10/20/2016 received one unit of packed RBC blood transfusion. Urine culture showed growth of Klebsiella ESBL and was continued on Invanz. Blood culture did not isolate any growth. She was eventually taken off the Lasix drip and was placed on p.o lasix. She was given one dose of IV iron. She has a history of atrial fibrillation, however, not a candidate for anticoagulation given recent gastrointestinal bleed and anemia. She was given SCDs for DVT prophylaxis. She was eventually discharged back to SNF. FINAL DIAGNOSES: 1. Acute toxic metabolic encephalopathy. 2. Urinary tract infection with Klebsiella extended-spectrum beta-lactamases. 3. Acute on chronic hypercapnic respiratory failure status post trach, vent dependent. 4. Ypjzl-gz-thyqvcp renal failure. 5. Zogtm-aq-zsgfbhb anemia requiring blood transfusion. 6. Morbid obesity. 7. Paroxysmal atrial fibrillation. 8. Severe pulmonary hypertension. 9. Mzvdb-pn-tlxjmqd diastolic heart failure. 10. Major depressive disorder. 11. History of right breast cancer status post lumpectomy. 12. Hyperuricemia. 13. Fluid overload. 14. Chronic kidney disease. 15. Obstructive sleep apnea. 16. History of gastrointestinal bleed, off anticoagulation. 17. Sacral stage I pressure ulcer and left trochanter stage II pressure ulcer, present on admission. DISPOSITION: The patient was discharged to [facility]. DISCHARGE MEDICATIONS: Refer to med list. Continue Invanz for two more days. Manny Nolan M.D. I have been assigned to dictate discharge summary on this account and I was not involved in the patient's management. Angeline Swenson N.P. DR: SELAM JOB#: [id number] CC: LOBO
== END 2016-10-21 17:19 | DRG 463 ==
LOC: EDBD 23:48 → EMR 23:58 → EDBEDREQ 10-16 02:36 → 2W 10-16 02:41 → EDBEDREQ 10-16 03:45
PROC: 5A1955Z Respiratory Ventilation, Greater than 96 Consecutive Hours (ICD-10-PCS; principal; 2016-10-16)
PROC: 30233N1 Transfusion of Nonautologous Red Blood Cells into Peripheral Vein, Percutaneous Approach (ICD-10-PCS; 2016-10-20)
DX: N39.0 Urinary tract infection, site not specified (principal); J96.22 Acute and chronic respiratory failure with hypercapnia; G92 Toxic encephalopathy; I50.33 Acute on chronic diastolic (congestive) heart failure; Z99.11 Dependence on respirator [ventilator] status; N17.9 Acute kidney failure, unspecified; L89.151 Pressure ulcer of sacral region, stage 1; L89.222 Pressure ulcer of left hip, stage 2; I27.2 Other secondary pulmonary hypertension; J44.9 Chronic obstructive pulmonary disease, unspecified; Z68.43 Body mass index [BMI] 50.0-59.9, adult; E66.2 Morbid (severe) obesity with alveolar hypoventilation; B96.20 Unspecified Escherichia coli [E. coli] as the cause of diseases classified elsewhere; R80.9 Proteinuria, unspecified; Z16.12 Extended spectrum beta lactamase (ESBL) resistance; N18.9 Chronic kidney disease, unspecified; D50.0 Iron deficiency anemia secondary to blood loss (chronic); Z88.6 Allergy status to analgesic agent; Z88.1 Allergy status to other antibiotic agents; Z88.0 Allergy status to penicillin; Z85.3 Personal history of malignant neoplasm of breast; F32.9 Major depressive disorder, single episode, unspecified; B96.1 Klebsiella pneumoniae [K. pneumoniae] as the cause of diseases classified elsewhere; I48.0 Paroxysmal atrial fibrillation; G47.33 Obstructive sleep apnea (adult) (pediatric); E87.79 Other fluid overload; Z43.0 Encounter for attention to tracheostomy; I89.0 Lymphedema, not elsewhere classified; R00.1 Bradycardia, unspecified; I34.0 Nonrheumatic mitral (valve) insufficiency; I36.1 Nonrheumatic tricuspid (valve) insufficiency
CPT/HCPCS: 36415; 36600; 70450; 71010; 80048; 80053; 80061; 81001; 81050; 82575; 82803; 82977; 83735; 83880; 84100; 84156; 84443; 84484; 84550; 85007; 85025; 85610; 85730; 86140; 86850; 86900; 86901; 86920; 87040; 87081; 87086; 87181; 93005; 94002; 94003; 94640; 99285; J2310; J2405; J7620

== ENCOUNTER 2016-11-11 20:52 | Inpatient (IN) | payer MEDICAID, MEDICARE ==
[~2016-11-11] VITALS: Ht 160 cm; Wt 180.5 kg
[~2016-11-11 20:52] MED LIST changes: +ACETAMINOPHEN325 M1 ORAL; +INVANZ1 GM IVPB
[2016-11-11 21:00] VITALS: BP 137/99
[2016-11-11] MEDS ORDERED: Cefepime HCl 2 GM in NS 110 ML IV STA (21:04)
[2016-11-11] MEDS ORDERED: Albuterol ud Inhalation HHN ONE (21:15)
[2016-11-11] MEDS ORDERED: Ipratropium 0.02% Inh Soln 2.5ml UD HHN ONE (21:15)
[2016-11-11] MEDS ORDERED: Vancomycin 1.5gm/D5W 250ml 325 ML IVPB ONE (21:15)
--- NOTE | 2016-11-11 21:29 | Emergency Room Report ---
History of Present Illness General Chief Complaint: General Complaint Source: Patient, EMS Present Illness HPI Patient is ventilator dependent. She's sent in for edema of her lower extremities and also right arm. This is been worsening for several weeks. Now the legs are red and quite painful. She is able to vocalize, even though she has trach. She states pain in legs 10/10, burning and aching. Calfs more than upper legs, without radiation. Constant pain. Denies meds given to help. She has chronic sputum which is unchanged. She denies chest pain or increased dyspnea. No change in bowels. She has weakness of all extrem. No increased pain in R arm. No NVD. She was discharged 10/21/16 with these dx: 1. Acute toxic metabolic encephalopathy. 2. Urinary tract infection with Klebsiella extended-spectrum beta-lactamases. 3. Acute on chronic hypercapnic respiratory failure status post trach, vent dependent. 4. Glgwg-ml-wmfjany renal failure. 5. Pmvki-fp-nnpnncf anemia requiring blood transfusion. 6. Morbid obesity. 7. Paroxysmal atrial fibrillation. 8. Severe pulmonary hypertension. 9. Hhfoa-no-zhdimir diastolic heart failure. 10. Major depressive disorder. 11. History of right breast cancer status post lumpectomy. 12. Hyperuricemia. 13. Fluid overload. 14. Chronic kidney disease. 15. Obstructive sleep apnea. 16. History of gastrointestinal bleed, off anticoagulation. 17. Sacral stage I pressure ulcer and left trochanter stage II pressure ulcer, present on admission. Allergies: Coded Allergies: AMOXICILLIN (Verified Allergy, Mild, RASH, 09/30/16) PENICILLINS (Unverified Allergy, Unknown, 09/30/16) Patient History Past Medical History: see triage record, old chart reviewed Past Surgical History: other - trach Social History: Reports: smoking - former Social History Narrative longterm facility Last Menstrual Period: na Now: No Reviewed Nursing Documentation: PMH: Agreed, PSxH: Agreed Nursing Documentation-PMH Hx Cardiac Problems: Yes - ANEMIA, HYPERKALEMIA, HYPERLIPIDEMIA Hx Hypertension: Yes - PAROXYSMAL AFIB, PLEURAL EFFUSION, CHF Hx COPD: Yes - ARF WITH HYPERCAPNIA, DYSPHAGIA,OBSTRUCTIVE SLEEP APNEA Hx Diabetes: Yes Hx Cancer: Yes Hx Gastrointestinal Problems: Yes - GERD, CKD, OBESITY, ACUTE KIDNEY FAILURE Hx Dialysis: Yes Hx Neurological Problems: Yes Hx Seizures: Yes Review of Systems All Other Systems: negative except mentioned in HPI Physical Exam Vital Signs Date Time Temp Pulse Resp B/P (MAP) Pulse Ox O2 Delivery O2 Flow Rate FiO2 11/11/16 20:52 97.5 85 18 137/99 100 11/11/16 21:03 Mechanical Ventilator 30 Sp02 EP Interpretation: reviewed, normal General Appearance: alert, GCS 15, obese, Chronically Ill Head: normocephalic Eyes: bilateral eye normal inspection, bilateral eye PERRL ENT: moist mucus membranes Neck: supple, tracheotomy Respiratory: no respiratory distress, crackles, rhonchi Cardiovascular #1: regular rate, rhythm, edema - brawney bilat LE and also edema of R forearm and hand Cardiovascular #2: 2+ radial (R) Gastrointestinal: normal inspection, normal bowel sounds, non tender, no mass, non-distended, overweight Musculoskeletal: back normal, decreased range of motion, Geetha's Sign negative Neurologic: alert, oriented x3, sensory intact, motor weakness - diffuse Psychiatric: depressed affect Skin: warm/dry, other - erythema LE bilaterally without abscess Medical Decision Making Diagnostic Impression: Primary Impression: Cellulitis Qualified Codes: L03.119 - Cellulitis of unspecified part of limb Additional Impressions: Renal failure Qualified Codes: N18.3 - Chronic kidney disease, stage 3 (moderate) UTI (urinary tract infection) Qualified Codes: N30.00 - Acute cystitis without hematuria Interstitial edema Qualified Codes: R60.0 - Localized edema ER Course The patient presents with edema that looks erythematous and infected at this time. We need to his conical mixer with blood cultures, lactate and other labs. She 's ventilator dependent and we will continue with this. Was also also give her a breathing treatment. Also treated for pain. She total-body sodium overloaded and we will refrain from giving her aggressive IV hydration. This depends if her lactate is elevated. Consideration for DVT is also present particularly with unilateral R arm swelling. Respiratory status appears tenuous but stable at this time. Need to exclude AMI and PNA. Very complex patient. EKG without acute injury. CXR with increased baker. Labs with CRF (unchanged from prior), normal trop, elevated BNP, pyuria. Choice of antibiotics to cover cellulitis and UTI. Also chosen with concern over CRF (though vanco indicated and will need to follow creat). Patient somewhat improved with RT interventions. Admitted to Dr.Berdjis (per his request) FRANCISCO. Laboratory Tests Test 11/11/16 21:15 11/12/16 17:45 11/12/16 18:30 White Blood Count 7.0 K/UL (4.8-10.8) 5.7 K/UL (4.8-10.8) Red Blood Count 3.13 M/UL (4.20-5.40) L 2.92 M/UL (4.20-5.40) L Hemoglobin 8.6 G/DL (12.0-16.0) L 8.0 G/DL (12.0-16.0) L Hematocrit 29.8 % (37.0-47.0) L 28.0 % (37.0-47.0) L Mean Corpuscular Volume 95 FL (80-99) 96 FL (80-99) Mean Corpuscular Hemoglobin 27.5 PG (27.0-31.0) 27.5 PG (27.0-31.0) Mean Corpuscular Hemoglobin Concent 28.9 G/DL (32.0-36.0) L 28.7 G/DL (32.0-36.0) L Red Cell Distribution Width 15.6 % (11.6-14.8) H 16.0 % (11.6-14.8) H Platelet Count 192 K/UL (150-450) 182 K/UL (150-450) Mean Platelet Volume 4.7 FL (6.5-10.1) L 4.8 FL (6.5-10.1) L Neutrophils (%) (Auto) 64.5 % (45.0-75.0) % (45.0-75.0) Lymphocytes (%) (Auto) 17.2 % (20.0-45.0) L % (20.0-45.0) Monocytes (%) (Auto) 10.4 % (1.0-10.0) H % (1.0-10.0) Eosinophils (%) (Auto) 6.8 % (0.0-3.0) H % (0.0-3.0) Basophils (%) (Auto) 1.1 % (0.0-2.0) % (0.0-2.0) Prothrombin Time 11.9 SEC (9.30-11.50) H Prothrombin Time INR 1.1 (0.9-1.1) PTT 26 SEC (23-33) Sodium Level 140 mEQ/L (135-145) Potassium Level 4.2 mEQ/L (3.4-4.9) Chloride Level 100 mEQ/L (98-107) Carbon Dioxide Level 27 mEQ/L (20-30) Anion Gap 13 (5-15) Blood Urea Nitrogen 59 mg/dL (7-23) H Creatinine 3.1 mg/dL (0.5-0.9) H Estimate Glomerular Filtration Rate mL/min (>60) Glucose Level 156 mg/dL (74-106) H Lactic Acid Level 0.90 mmol/L (0.66-2.22) Calcium Level 9.0 mg/dL (8.6-10.2) Total Bilirubin 0.4 mg/dL (0.0-1.2) Aspartate Amino Transferase (AST) 11 U/L (5-40) Alanine Aminotransferase (ALT) 5 U/L (3-33) Alkaline Phosphatase 71 U/L (35-104) Total Creatine Kinase 63 U/L (26-140) 65 U/L (26-140) Troponin I < 0.30 ng/mL (<=0.30) Pro-B-Type Natriuretic Peptide 22926 pg/mL (0-450) H Total Protein 7.4 g/dL (6.6-8.7) Albumin 3.2 g/dL (3.5-5.2) L Globulin 4.2 g/dL Albumin/Globulin Ratio 0.7 (1.0-2.7) L Differential Total Cells Counted 100 Neutrophils % (Manual) 63 % (45-75) Lymphocytes % (Manual) 18 % (20-45) L Monocytes % (Manual) 8 % (1-10) Eosinophils % (Manual) 10 % (0-3) H Basophils % (Manual) 1 % (0-2) Band Neutrophils 0 % (0-8) Platelet Estimate Adequate Platelet Morphology Normal Polychromasia 1+ Anisocytosis 2+ Macrocytosis 1+ Reticulocyte Count 0.7 % (0.0-2.0) Fibrinogen 364 mg/dL (200-400) Uric Acid 10.4 mg/dL (3.0-7.5) H Iron Level 33 ug/dL (37-145) L Total Iron Binding Capacity 171 ug/dL (250-400) L Percent Iron Saturation 19 % (15-50) Unsaturated Iron Binding 138 ug/dL (112-346) Soluble Transferrin Receptor Pending Ferritin 507 ng/mL (13-150) H Lactate Dehydrogenase 198 U/L (135-230) Vitamin B12 Level > 2000 pg/mL (211-946) H Urine Color Pale yellow Urine Appearance Slightly cloudy Urine pH 5 (4.5-8.0) Urine Specific [place] 1.015 (1.005-1.035) Urine Protein 3+ (NEGATIVE) H Urine Glucose (UA) Negative (NEGATIVE) Urine Ketones Negative (NEGATIVE) Urine Occult Blood 5+ (NEGATIVE) H Urine Nitrite Negative (NEGATIVE) Urine Bilirubin Negative (NEGATIVE) Urine Urobilinogen Normal MG/DL (0.0-1.0) Urine Leukocyte Esterase 1+ (NEGATIVE) H Urine RBC 20-30 /HPF (0 - 2) H Urine WBC 30-40 /HPF (0 - 2) H Urine Squamous Epithelial Cells Occasional /LPF Urine Bacteria Few /HPF (NONE) Urine Eosinophils None seen Urine Random Sodium 28 mmol/L Urine Potassium Timed 34 mmol/L (12-62) EKG Diagnostic Results Rate: normal Rhythm: other - Atrial fib Rhythm Strip Diag. Results EP Interpretation: yes Rhythm: no PVC's, no ectopy, other - Atrial fib Chest X-Ray Diagnostic Results Chest X-Ray Diagnostic Results : Chest X-Ray Ordered: Yes # of Views/Limited/Complete: 1 View Indication: Shortness of Breath EP Interpretation: Yes Interpretation: no effusion, other - R infiltrate and inc cor with increased vascularity bilat - CHF Impression: Other Electronically Signed by: Corby Day MD Last Vital Signs Date Time Temp Pulse Resp B/P (MAP) Pulse Ox O2 Delivery O2 Flow Rate FiO2 11/12/16 02:32 70 22 30 11/11/16 21:53 100 Mechanical Ventilator 11/11/16 21:00 97.5 137/99 Status: improved Disposition: ADMITTED INPATIENT Condition: Serious Corby Day M.D. Nov 11, 2016 21:29
[2016-11-11] MEDS ORDERED: Hydromorphone 0.5mg/0.5ml inj IVP ONE (21:30)
[2016-11-11 21:35] LABS: BASOPHILS % (AUTO) 1.1 % (0.0-2.0); EOSINOPHILS % (AUTO) 6.8 % (0.0-3.0); LYMPHOCYTES % (AUTO) 17.2 % (20.0-45.0); MEAN CORPUSCULAR HEMOGLOBIN 27.5 PG (27.0-31.0); MEAN CORPUSCULAR HGB CONC 28.9 G/DL (32.0-36.0); MEAN CORPUSCULAR VOLUME 95 FL (80-99); MEAN PLATELET VOLUME 4.7 FL (6.5-10.1); MONOCYTES % (AUTO) 10.4 % (1.0-10.0); NEUTROPHILS % (AUTO) 64.5 % (45.0-75.0); PLATELET COUNT 192 K/UL (150-450); RED BLOOD COUNT 3.13 M/UL (4.20-5.40); RED CELL DISTRIBUTION WIDTH 15.6 % (11.6-14.8)
[2016-11-11] MEDS ORDERED: FUROSEMIDE40 MG ORAL (21:39)
[2016-11-11] MEDS ORDERED: RENA-VITE RX T1 EAC1 PO (21:39)
[2016-11-11] MEDS ORDERED: RENVELA0.8 GM ORAL (21:39)
[2016-11-11] MEDS ORDERED: GABAPENTIN600 MG ORAL (21:39)
[2016-11-11] MEDS ORDERED: CALCIUM CARBON500 M1 PO (21:39)
[2016-11-11] MEDS ORDERED: SILDENAFIL20 MG ORAL (21:39)
[2016-11-11] MEDS ORDERED: EPOGEN4000 UNIT/ SUBQ (21:39)
[2016-11-11] MEDS ORDERED: ALBUTEROL2.5 MG/3 M INH (21:39)
[2016-11-11] MEDS ORDERED: ACETAMINOP160 MG/54 ORAL (21:39)
[2016-11-11] MEDS ORDERED: CRANBERRY500 M4 PO (21:39)
[2016-11-11 21:41] LABS: INR 1.1 (0.9-1.1); PROTHROMBIN TIME 11.9 SEC (9.30-11.50)
[2016-11-11 21:44] LABS: ALANINE AMINOTRANSFERASE 5 U/L (3-33); ALBUMIN/GLOBULIN RATIO 0.7 (1.0-2.7); ANION GAP 13 (5-15); ASPARTATE AMINO TRANSFERASE 11 U/L (5-40); CARBON DIOXIDE 27 mEQ/L (20-30); CHLORIDE 100 mEQ/L (98-107); CREATININE 3.1 mg/dL (0.5-0.9); HEMOLYSIS 2; POTASSIUM 4.2 mEQ/L (3.4-4.9); SODIUM 140 mEQ/L (135-145); TOTAL PROTEIN 7.4 g/dL (6.6-8.7); TROPONIN I < 0.30 ng/mL (<=0.30)
[2016-11-11] MEDS ORDERED: Cefepime 2gm ONE (23:32)
[2016-11-12] VITALS (10 sets, daily range): BP systolic 91–142; BP diastolic 42–97
[2016-11-12] MEDS ORDERED: Albuterol ud Inhalation HHN PRN (05:15)
[2016-11-12] MEDS ORDERED: Albuterol/Ipratropium 3ml neb HHN PRN (05:15)
[2016-11-12] MEDS: Docusate 100mg cap ORAL SCH ×2 (10:09→18:39)
[2016-11-12] MEDS: Calcitriol 0.25mcg Cap ORAL SCH (10:09)
[2016-11-12] MEDS: Revatio 20mg tab ORAL SCH ×3 (10:10→18:39)
[2016-11-12] MEDS: Miralax 17gm pkt ORAL SCH (10:11)
[2016-11-12] MEDS: Pantoprazole Inj IVP SCH (10:12)
--- NOTE | 2016-11-12 10:20 | Diagnostic Imaging Report ---
Indication: Dyspnea Comparison: 10/17/16 A single view chest radiograph was obtained. Findings: Current exam limited by motion. There is some prominence of the pulmonary vascularity and heart size. In addition interstitial markings are prominent likely due to edema. Tracheostomy is noted. Impression: Limited evaluation. Suspected interstitial edema
[2016-11-12] MEDS: Eliquis 2.5mg tablet ORAL SCH ×2 (10:21→18:39)
[2016-11-12] MEDS: Vitamin B-12 500mcg tab ORAL SCH (10:22)
[2016-11-12] MEDS ORDERED: Cefepime HCl 1 GM in D5W 55 ML IVPB SCH (12:00)
[2016-11-12] MEDS: Morphine Sulfate 2mg/ml Inj IVP PRN (12:34)
--- NOTE | 2016-11-12 13:08 | Consultation ---
History of Present Illness General Date patient seen: Nov 12, 2016 Chief Complaint: General Complaint Reason for Consultation: vent management Present Illness HPI 76 year old female with multiple medical issues including chronic respiratory failure, vent/trach dependent, Gtube, morbid obesity, long-term resident brought in for edema of her lower extremities and also right arm. This is been brown for several weeks. Now he legs are red and quite painful. She is able to denies symptoms symptoms. She was found in ER to be anemic and admitted to [facility] for further management. Allergies: Coded Allergies: AMOXICILLIN (Verified Allergy, Mild, RASH, 09/30/16) PENICILLINS (Unverified Allergy, Unknown, 09/30/16) Medication History Scheduled Apixaban (Eliquis), 2.5 MG PO BID, (Reported) Calcitriol (Calcitriol), 0.25 MCG ORAL DAILY, (Reported) Calcium Carbonate (Calcium Carbonate), 1,250 MG ORAL BID, (Reported) Calcium Carbonate (Calcium Carbonate), 500 MG PO BID, (Reported) Cranberry Extract (Cranberry), 200 MG PO DAILY, (Reported) Cranberry Extract (Cranberry), 425 MG PO DAILY, (Reported) Cyanocobalamin (Vitamin B-12)* (Vitamin B-12*), 3,000 MCG ORAL DAILY, (Reported) Docusate Sodium* (Docusate Sodium*), 100 MG ORAL TWICE A DAY, (Reported) Epoetin Santos (Epogen), 5,000 UNIT SUBQ 3XW, (Reported) Ertapenem Sodium* (INVanz*), 1 GM IVPB Q24H Fluticasone Propionate* (Fluticasone Propionate*), 1 SPRAY NASAL DAILY, ( Reported) Folic Acid* (Folic Acid*), 1 MG ORAL DAILY, (Reported) Folic Acid/Vitamin B Comp W-C (Jessi-Barbara Tablet), 0.8 MG PO DAILY, (Reported) Furosemide* (Lasix*), 20 MG ORAL TWICE A DAY, (Reported) Furosemide* (Lasix*), 40 MG ORAL THREE TIMES A DAY, (Reported) Gabapentin* (Gabapentin*), 600 MG ORAL TWICE A DAY, (Reported) Gabapentin* (Gabapentin*), 600 MG ORAL BID, (Reported) Ipratropium/Albuterol Sulfate (DuoNeb 0.5-3(2.5)mg/3ml), 3 ML HHN EVERY 2 HOURS, (Reported) Lactobacillus Acidophilus (Probiotic), 1 EACH PO DAILY, (Reported) Letrozole (Femara), 2.5 MG ORAL DAILY, (Reported) Lidocaine (Lidocaine), 700 MG TP EVERY 24 HOURS, (Reported) Nutritional Supplement (Hi-Mark), 1,000 ML PO TID, (Reported) Pantoprazole (Pantoprazole), 40 MG ORAL DAILY, (Reported) Polyethylene Glycol 3350* (Miralax*), 17 GM ORAL DAILY, (Reported) Pravastatin Sod* (Pravastatin Sod*), 20 MG ORAL BEDTIME, (Reported) Prednisone* (Prednisone*), 10 MG ORAL DAILY, (Reported) Sevelamer Carbonate (Renvela), 800 MG ORAL THREE TIMES A DAY Sevelamer Carbonate* (Renvela*), 800 MG ORAL THREE TIMES A DAY, (Reported) Sildenafil Citrate (Revatio), 20 MG ORAL THREE TIMES A DAY Sildenafil Citrate (Sildenafil), 20 MG ORAL TID, (Reported) Vit B Cmplx 3/Fa/Vit C/Biotin (Jessi-Barbara Rx Tablet), 1 EACH PO DAILY, (Reported) Scheduled PRN Acetaminophen* (Acetaminophen*), 650 MG ORAL Q4HR PRN for Fever/Headache/Mild Pain, (Reported) Acetaminophen* (Acetaminophen 325MG Tablet*), 650 MG ORAL Q4H PRN for Mild Pain/ Temp > 100.5, (Reported) Acetaminophen* (Acetaminophen*), 650 MG ORAL Q4HR PRN for Fever/Headache/Mild Pain, (Reported) Albuterol Sulfate* (Albuterol Sulfate Hhn*), 3 ML INH EVERY 2 HOURS PRN for Shortness of Breath, (Reported) Ipratropium/Albuterol Sulfate (DuoNeb 0.5-3(2.5)mg/3ml), 3 ML HHN Q6HR PRN for Shortness of Breath, (Reported) Patient History Healthcare decision maker self Resuscitation status Full Code Advanced Directive on File Family History Family History: (1) Chronic respiratory failure (2) Urinary tract infection (3) MINA (obstructive sleep apnea) (4) Morbid obesity Review of Systems All Other Systems: negative except mentioned in HPI Physical Exam General Appearance: WD/WN Lines, tubes and drains: peripheral, central line Respiratory/Chest: chest wall non-tender, lungs clear Cardiovascular/Chest: normal peripheral pulses, normal rate Abdomen: normal bowel sounds, non tender Genitourinary/Rectal: normal genital exam, normal rectal exam Last 24 Hour Vital Signs Date Time Temp Pulse Resp B/P (MAP) Pulse Ox O2 Delivery O2 Flow Rate FiO2 11/12/16 12:32 86 16 30 11/12/16 10:51 84 16 30 11/12/16 08:30 81 16 30 11/12/16 08:00 30 11/12/16 08:00 70 11/12/16 08:00 97.8 61 23 101/42 98 Mechanical Ventilator 30 11/12/16 07:16 86 18 30 11/12/16 07:00 59 16 99/45 96 Mechanical Ventilator 30 11/12/16 06:00 59 16 91/48 97 Mechanical Ventilator 30 11/12/16 05:10 82 17 30 11/12/16 05:00 60 16 95/47 96 Mechanical Ventilator 30 11/12/16 04:00 30 11/12/16 04:00 97.5 59 16 95/43 100 Mechanical Ventilator 30 11/12/16 03:42 97.5 65 20 112/59 100 Mechanical Ventilator 30 11/12/16 03:37 65 11/12/16 03:10 97.3 66 20 142/97 100 Mechanical Ventilator 30 11/12/16 03:00 97.3 66 20 142/97 100 Mechanical Ventilator 30 11/12/16 02:32 70 22 30 11/12/16 00:53 60 18 30 11/11/16 22:46 78 16 30 11/11/16 21:53 77 16 100 Mechanical Ventilator 30 11/11/16 21:42 55 18 100 Mechanical Ventilator 50 11/11/16 21:03 103 21 30 11/11/16 21:03 103 21 Mechanical Ventilator 30 11/11/16 21:00 97.5 67 18 137/99 100 Mechanical Ventilator 30 11/11/16 20:52 97.5 85 18 137/99 100 Laboratory Tests Test 11/11/16 21:15 White Blood Count 7.0 K/UL (4.8-10.8) Red Blood Count 3.13 M/UL (4.20-5.40) L Hemoglobin 8.6 G/DL (12.0-16.0) L Hematocrit 29.8 % (37.0-47.0) L Mean Corpuscular Volume 95 FL (80-99) Mean Corpuscular Hemoglobin 27.5 PG (27.0-31.0) Mean Corpuscular Hemoglobin Concent 28.9 G/DL (32.0-36.0) L Red Cell Distribution Width 15.6 % (11.6-14.8) H Platelet Count 192 K/UL (150-450) Mean Platelet Volume 4.7 FL (6.5-10.1) L Neutrophils (%) (Auto) 64.5 % (45.0-75.0) Lymphocytes (%) (Auto) 17.2 % (20.0-45.0) L Monocytes (%) (Auto) 10.4 % (1.0-10.0) H Eosinophils (%) (Auto) 6.8 % (0.0-3.0) H Basophils (%) (Auto) 1.1 % (0.0-2.0) Prothrombin Time 11.9 SEC (9.30-11.50) H Prothromb Time International Ratio 1.1 (0.9-1.1) Activated Partial Thromboplast Time 26 SEC (23-33) Sodium Level 140 mEQ/L (135-145) Potassium Level 4.2 mEQ/L (3.4-4.9) Chloride Level 100 mEQ/L (98-107) Carbon Dioxide Level 27 mEQ/L (20-30) Anion Gap 13 (5-15) Blood Urea Nitrogen 59 mg/dL (7-23) H Creatinine 3.1 mg/dL (0.5-0.9) H Estimat Glomerular Filtration Rate mL/min (>60) Glucose Level 156 mg/dL (74-106) H Lactic Acid Level 0.90 mmol/L (0.66-2.22) Calcium Level 9.0 mg/dL (8.6-10.2) Total Bilirubin 0.4 mg/dL (0.0-1.2) Aspartate Amino Transf (AST/SGOT) 11 U/L (5-40) Alanine Aminotransferase (ALT/SGPT) 5 U/L (3-33) Alkaline Phosphatase 71 U/L (35-104) Total Creatine Kinase 63 U/L (26-140) Troponin I < 0.30 ng/mL (<=0.30) Pro-B-Type Natriuretic Peptide 60525 pg/mL (0-450) H Total Protein 7.4 g/dL (6.6-8.7) Albumin 3.2 g/dL (3.5-5.2) L Globulin 4.2 g/dL Albumin/Globulin Ratio 0.7 (1.0-2.7) L Height (Feet): 5 Height (Inches): 6.00 Weight (Pounds): 392 Medications Current Medications Medications (Trade) Dose Ordered Sig/Kalyn Route PRN Reason Start Time Stop Time Status Last Admin Dose Admin Acetaminophen (Tylenol) 650 mg Q4H PRN ORAL Mild Pain/Temp > 100.5 11/12/16 05:15 12/12/16 05:14 Albuterol Sulfate (Proventil) 2.5 mg EVERY 6 HOURS PRN HHN Shortness of Breath 11/12/16 05:15 11/17/16 05:14 Albuterol/ Ipratropium (DuoNeb 0.5-3(2.5)mg/3ml) 3 ml Q6HR PRN HHN Shortness of Breath 11/12/16 05:15 11/17/16 05:14 Apixaban (Eliquis) 2.5 mg BID ORAL 11/12/16 09:00 12/12/16 08:59 11/12/16 10:21 Calcitriol (Rocatrol) 0.25 mcg DAILY ORAL 11/12/16 09:00 12/12/16 08:59 11/12/16 10:09 Calcium Carbonate (Os-Mark) 500 mg BID ORAL 11/12/16 09:00 12/12/16 08:59 11/12/16 10:09 Cefepime HCl 1 gm/ Dextrose 55 ml @ 110 mls/hr Q12H IVPB 11/12/16 12:00 11/19/16 11:59 11/12/16 12:30 Cyanocobalamin (Vitamin B-12) 3,000 mcg DAILY ORAL 11/12/16 09:00 12/12/16 08:59 11/12/16 10:22 Docusate Sodium (Colace) 100 mg TWICE A DAY ORAL 11/12/16 09:00 12/12/16 08:59 11/12/16 10:09 Folic Acid (Folate) 1 mg DAILY ORAL 11/12/16 09:00 12/12/16 08:59 11/12/16 10:11 Furosemide (Lasix) 20 mg EVERY 12 HOURS IV 11/12/16 09:00 12/12/16 08:59 11/12/16 10:12 Gabapentin (Neurontin) 600 mg BID ORAL 11/12/16 09:00 12/12/16 08:59 11/12/16 10:10 Letrozole (Femara) 2.5 mg DAILY ORAL 11/12/16 09:00 11/17/16 08:59 11/12/16 10:10 Morphine Sulfate (Morphine Sulfate) 2 mg Q4H PRN IVP Severe Pain (Pain Scale 7-10) 11/12/16 12:00 11/19/16 11:59 11/12/16 12:34 Pantoprazole (Protonix) 40 mg DAILY IVP 11/12/16 09:00 12/12/16 08:59 11/12/16 10:12 Polyethylene Glycol (Miralax) 17 gm DAILY ORAL 11/12/16 09:00 12/12/16 08:59 11/12/16 10:11 Pravastatin Sodium (Pravachol) 20 mg BEDTIME ORAL 11/12/16 21:00 12/12/16 20:59 Sevelamer Carbonate (Renvela) 800 mg THREE TIMES A DAY ORAL 11/12/16 09:00 12/12/16 08:59 11/12/16 12:30 Sildenafil Citrate (Revatio) 20 mg THREE TIMES A DAY ORAL 11/12/16 09:00 12/12/16 08:59 11/12/16 12:30 Vancomycin HCl (Vanco rx to dose) 1 ea DAILY PRN MISC PER RX PROTOCOL 11/12/16 10:45 12/12/16 08:59 Vancomycin HCl/ Dextrose 250 ml @ 166.667 mls/hr Q24H IVPB 11/13/16 01:00 11/18/16 00:59 Assessment/Plan Problem List: (1) Chronic respiratory failure ICD Codes: J96.10 - Chronic respiratory failure, unspecified whether with hypoxia or hypercapnia SNOMED: 76597070 (2) Anasarca ICD Codes: R60.1 - Generalized edema SNOMED: 334815957, 329439183 (3) ATN (acute tubular necrosis) ICD Codes: N17.0 - Acute kidney failure with tubular necrosis SNOMED: 28162136 (4) Anemia ICD Codes: D64.9 - Anemia, unspecified SNOMED: 207040414 (5) Peripheral edema ICD Codes: R60.9 - Edema, unspecified SNOMED: 413428504 (6) Pickwickian syndrome ICD Codes: E66.2 - Morbid (severe) obesity with alveolar hypoventilation SNOMED: 903302655 (7) MINA (obstructive sleep apnea) ICD Codes: G47.33 - Obstructive sleep apnea (adult) (pediatric) SNOMED: 13881840 (8) Morbid obesity ICD Codes: E66.01 - Morbid (severe) obesity due to excess calories SNOMED: 130901402, [id number] Respiratory: monitor respiratory rate, adjust FIO2 Cardiac: continue to monitor HR/BP Renal: F/U I&O, keep IV fluid Infectious Disease: check cultures, continue antibiotics Gastrointestinal: continue feedings/current rate Endocrine: monitor blood sugar, check TSH, continue sliding scale insulin Hematologic: monitor H/H, transfuse if hgb<8.5 Neurologic: PRN Ativan, PRN Morphine, keep patient comfortable Affect: PRN ativan Prophylaxis: Protonix, Heparin Notes Reviewed: tax compliance manager, renal 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: nurses, consultants, case coordinator ARASH MIRANDA Nov 12, 2016 13:08
--- NOTE | 2016-11-12 14:39 | History and Physical ---
History of Present Illness General Date patient seen: Nov 12, 2016 Reason for Hospitalization: General Complaint Present Illness Allergies: Coded Allergies: AMOXICILLIN (Verified Allergy, Mild, RASH, 09/30/16) PENICILLINS (Unverified Allergy, Unknown, 09/30/16) Medication History Scheduled Apixaban (Eliquis), 2.5 MG PO BID, (Reported) Calcitriol (Calcitriol), 0.25 MCG ORAL DAILY, (Reported) Calcium Carbonate (Calcium Carbonate), 1,250 MG ORAL BID, (Reported) Calcium Carbonate (Calcium Carbonate), 500 MG PO BID, (Reported) Cranberry Extract (Cranberry), 200 MG PO DAILY, (Reported) Cranberry Extract (Cranberry), 425 MG PO DAILY, (Reported) Cyanocobalamin (Vitamin B-12)* (Vitamin B-12*), 3,000 MCG ORAL DAILY, (Reported) Docusate Sodium* (Docusate Sodium*), 100 MG ORAL TWICE A DAY, (Reported) Epoetin Santos (Epogen), 5,000 UNIT SUBQ 3XW, (Reported) Ertapenem Sodium* (INVanz*), 1 GM IVPB Q24H Fluticasone Propionate* (Fluticasone Propionate*), 1 SPRAY NASAL DAILY, ( Reported) Folic Acid* (Folic Acid*), 1 MG ORAL DAILY, (Reported) Folic Acid/Vitamin B Comp W-C (Jessi-Barbara Tablet), 0.8 MG PO DAILY, (Reported) Furosemide* (Lasix*), 20 MG ORAL TWICE A DAY, (Reported) Furosemide* (Lasix*), 40 MG ORAL THREE TIMES A DAY, (Reported) Gabapentin* (Gabapentin*), 600 MG ORAL TWICE A DAY, (Reported) Gabapentin* (Gabapentin*), 600 MG ORAL BID, (Reported) Ipratropium/Albuterol Sulfate (DuoNeb 0.5-3(2.5)mg/3ml), 3 ML HHN EVERY 2 HOURS, (Reported) Lactobacillus Acidophilus (Probiotic), 1 EACH PO DAILY, (Reported) Letrozole (Femara), 2.5 MG ORAL DAILY, (Reported) Lidocaine (Lidocaine), 700 MG TP EVERY 24 HOURS, (Reported) Nutritional Supplement (Hi-Mark), 1,000 ML PO TID, (Reported) Pantoprazole (Pantoprazole), 40 MG ORAL DAILY, (Reported) Polyethylene Glycol 3350* (Miralax*), 17 GM ORAL DAILY, (Reported) Pravastatin Sod* (Pravastatin Sod*), 20 MG ORAL BEDTIME, (Reported) Prednisone* (Prednisone*), 10 MG ORAL DAILY, (Reported) Sevelamer Carbonate (Renvela), 800 MG ORAL THREE TIMES A DAY Sevelamer Carbonate* (Renvela*), 800 MG ORAL THREE TIMES A DAY, (Reported) Sildenafil Citrate (Revatio), 20 MG ORAL THREE TIMES A DAY Sildenafil Citrate (Sildenafil), 20 MG ORAL TID, (Reported) Vit B Cmplx 3/Fa/Vit C/Biotin (Jessi-Barbara Rx Tablet), 1 EACH PO DAILY, (Reported) Scheduled PRN Acetaminophen* (Acetaminophen*), 650 MG ORAL Q4HR PRN for Fever/Headache/Mild Pain, (Reported) Acetaminophen* (Acetaminophen 325MG Tablet*), 650 MG ORAL Q4H PRN for Mild Pain/ Temp > 100.5, (Reported) Acetaminophen* (Acetaminophen*), 650 MG ORAL Q4HR PRN for Fever/Headache/Mild Pain, (Reported) Albuterol Sulfate* (Albuterol Sulfate Hhn*), 3 ML INH EVERY 2 HOURS PRN for Shortness of Breath, (Reported) Ipratropium/Albuterol Sulfate (DuoNeb 0.5-3(2.5)mg/3ml), 3 ML HHN Q6HR PRN for Shortness of Breath, (Reported) Patient History Healthcare decision maker self Resuscitation status Full Code Advanced Directive on File Physical Exam Last 24 Hour Vital Signs Date Time Temp Pulse Resp B/P (MAP) Pulse Ox O2 Delivery O2 Flow Rate FiO2 11/12/16 12:32 86 16 30 11/12/16 12:00 97.5 73 16 131/74 98 Mechanical Ventilator 30 11/12/16 10:51 84 16 30 11/12/16 08:30 81 16 30 11/12/16 08:00 30 11/12/16 08:00 70 11/12/16 08:00 97.8 61 23 101/42 98 Mechanical Ventilator 30 11/12/16 07:16 86 18 30 11/12/16 07:00 59 16 99/45 96 Mechanical Ventilator 30 11/12/16 06:00 59 16 91/48 97 Mechanical Ventilator 30 11/12/16 05:10 82 17 30 11/12/16 05:00 60 16 95/47 96 Mechanical Ventilator 30 11/12/16 04:00 30 11/12/16 04:00 97.5 59 16 95/43 100 Mechanical Ventilator 30 11/12/16 03:42 97.5 65 20 112/59 100 Mechanical Ventilator 30 11/12/16 03:37 65 11/12/16 03:10 97.3 66 20 142/97 100 Mechanical Ventilator 30 11/12/16 03:00 97.3 66 20 142/97 100 Mechanical Ventilator 30 11/12/16 02:32 70 22 30 11/12/16 00:53 60 18 30 11/11/16 22:46 78 16 30 11/11/16 21:53 77 16 100 Mechanical Ventilator 30 11/11/16 21:42 55 18 100 Mechanical Ventilator 50 11/11/16 21:03 103 21 30 11/11/16 21:03 103 21 Mechanical Ventilator 30 11/11/16 21:00 97.5 67 18 137/99 100 Mechanical Ventilator 30 11/11/16 20:52 97.5 85 18 137/99 100 Laboratory Tests Test 11/11/16 21:15 White Blood Count 7.0 K/UL (4.8-10.8) Red Blood Count 3.13 M/UL (4.20-5.40) L Hemoglobin 8.6 G/DL (12.0-16.0) L Hematocrit 29.8 % (37.0-47.0) L Mean Corpuscular Volume 95 FL (80-99) Mean Corpuscular Hemoglobin 27.5 PG (27.0-31.0) Mean Corpuscular Hemoglobin Concent 28.9 G/DL (32.0-36.0) L Red Cell Distribution Width 15.6 % (11.6-14.8) H Platelet Count 192 K/UL (150-450) Mean Platelet Volume 4.7 FL (6.5-10.1) L Neutrophils (%) (Auto) 64.5 % (45.0-75.0) Lymphocytes (%) (Auto) 17.2 % (20.0-45.0) L Monocytes (%) (Auto) 10.4 % (1.0-10.0) H Eosinophils (%) (Auto) 6.8 % (0.0-3.0) H Basophils (%) (Auto) 1.1 % (0.0-2.0) Prothrombin Time 11.9 SEC (9.30-11.50) H Prothromb Time International Ratio 1.1 (0.9-1.1) Activated Partial Thromboplast Time 26 SEC (23-33) Sodium Level 140 mEQ/L (135-145) Potassium Level 4.2 mEQ/L (3.4-4.9) Chloride Level 100 mEQ/L (98-107) Carbon Dioxide Level 27 mEQ/L (20-30) Anion Gap 13 (5-15) Blood Urea Nitrogen 59 mg/dL (7-23) H Creatinine 3.1 mg/dL (0.5-0.9) H Estimat Glomerular Filtration Rate mL/min (>60) Glucose Level 156 mg/dL (74-106) H Lactic Acid Level 0.90 mmol/L (0.66-2.22) Calcium Level 9.0 mg/dL (8.6-10.2) Total Bilirubin 0.4 mg/dL (0.0-1.2) Aspartate Amino Transf (AST/SGOT) 11 U/L (5-40) Alanine Aminotransferase (ALT/SGPT) 5 U/L (3-33) Alkaline Phosphatase 71 U/L (35-104) Total Creatine Kinase 63 U/L (26-140) Troponin I < 0.30 ng/mL (<=0.30) Pro-B-Type Natriuretic Peptide 29318 pg/mL (0-450) H Total Protein 7.4 g/dL (6.6-8.7) Albumin 3.2 g/dL (3.5-5.2) L Globulin 4.2 g/dL Albumin/Globulin Ratio 0.7 (1.0-2.7) L Height (Feet): 5 Height (Inches): 6.00 Weight (Pounds): 392 Medications Current Medications Medications (Trade) Dose Ordered Sig/Kalyn Route PRN Reason Start Time Stop Time Status Last Admin Dose Admin Acetaminophen (Tylenol) 650 mg Q4H PRN ORAL Mild Pain/Temp > 100.5 11/12/16 05:15 12/12/16 05:14 Albuterol Sulfate (Proventil) 2.5 mg EVERY 6 HOURS PRN HHN Shortness of Breath 11/12/16 05:15 11/17/16 05:14 Albuterol/ Ipratropium (DuoNeb 0.5-3(2.5)mg/3ml) 3 ml Q6HR PRN HHN Shortness of Breath 11/12/16 05:15 11/17/16 05:14 Apixaban (Eliquis) 2.5 mg BID ORAL 11/12/16 09:00 12/12/16 08:59 11/12/16 10:21 Calcitriol (Rocatrol) 0.25 mcg DAILY ORAL 11/12/16 09:00 12/12/16 08:59 11/12/16 10:09 Calcium Carbonate (Os-Mark) 500 mg BID ORAL 11/12/16 09:00 12/12/16 08:59 11/12/16 10:09 Cefepime HCl 1 gm/ Dextrose 55 ml @ 110 mls/hr Q12H IVPB 11/12/16 12:00 11/19/16 11:59 11/12/16 12:30 Cyanocobalamin (Vitamin B-12) 3,000 mcg DAILY ORAL 11/12/16 09:00 12/12/16 08:59 11/12/16 10:22 Docusate Sodium (Colace) 100 mg TWICE A DAY ORAL 11/12/16 09:00 12/12/16 08:59 11/12/16 10:09 Folic Acid (Folate) 1 mg DAILY ORAL 11/12/16 09:00 12/12/16 08:59 11/12/16 10:11 Furosemide (Lasix) 20 mg EVERY 12 HOURS IV 11/12/16 09:00 12/12/16 08:59 11/12/16 10:12 Gabapentin (Neurontin) 600 mg BID ORAL 11/12/16 09:00 12/12/16 08:59 11/12/16 10:10 Letrozole (Femara) 2.5 mg DAILY ORAL 11/12/16 09:00 11/17/16 08:59 11/12/16 10:10 Morphine Sulfate (Morphine Sulfate) 2 mg Q4H PRN IVP Severe Pain (Pain Scale 7-10) 11/12/16 12:00 11/19/16 11:59 11/12/16 12:34 Pantoprazole (Protonix) 40 mg DAILY IVP 11/12/16 09:00 12/12/16 08:59 11/12/16 10:12 Polyethylene Glycol (Miralax) 17 gm DAILY ORAL 11/12/16 09:00 12/12/16 08:59 11/12/16 10:11 Pravastatin Sodium (Pravachol) 20 mg BEDTIME ORAL 11/12/16 21:00 12/12/16 20:59 Sevelamer Carbonate (Renvela) 800 mg THREE TIMES A DAY ORAL 11/12/16 09:00 12/12/16 08:59 11/12/16 12:30 Sildenafil Citrate (Revatio) 20 mg THREE TIMES A DAY ORAL 11/12/16 09:00 12/12/16 08:59 11/12/16 12:30 Vancomycin HCl (Vanco rx to dose) 1 ea DAILY PRN MISC PER RX PROTOCOL 11/12/16 10:45 12/12/16 08:59 Assessment/Plan Assessment/Plan H & P [facility] [id number] Manny Nolan< Manny Mario MD Nov 12, 2016 14:38
[2016-11-12 18:20] LABS: MEAN CORPUSCULAR HEMOGLOBIN 27.5 PG (27.0-31.0); MEAN CORPUSCULAR HGB CONC 28.7 G/DL (32.0-36.0); MEAN CORPUSCULAR VOLUME 96 FL (80-99); MEAN PLATELET VOLUME 4.8 FL (6.5-10.1); PLATELET COUNT 182 K/UL (150-450); RED BLOOD COUNT 2.92 M/UL (4.20-5.40); WHITE BLOOD COUNT 5.7 K/UL (4.8-10.8)
[2016-11-12 18:32] LABS: HEMOLYSIS 2; IRON 33 ug/dL (37-145); LACTATE DEHYDROGENASE 198 U/L (135-230); TOTAL IRON BINDING CAPACITY 171 ug/dL (250-400)
[2016-11-12 18:33] LABS: URIC ACID 10.4 mg/dL (3.0-7.5)
[2016-11-12 18:42] LABS: FERRITIN 507 ng/mL (13-150)
--- NOTE | 2016-11-12 19:06 | Consultation ---
History of Present Illness General Date patient seen: Nov 12, 2016 Time patient seen: 21:03 Chief Complaint: General Complaint Reason for Consultation: vent management Present Illness HPI 76 y/o F with hx of chronic resp failure, vent/trach dependent, Gtbue, pAfib, CHF, pleural effusion, MINA, CKD, GERD, morbid obseity, NH resident is brought to ED on 11/11 with lower extremities edema and R arm edema of several weeks onset. Legs has nowe turned red and painful. Denies cough, SOB, f/c, n/v/d. Afebrile, no leukocytosis. Started on IV Vanco and Cefepime Allergies: Coded Allergies: AMOXICILLIN (Verified Allergy, Mild, RASH, 09/30/16) PENICILLINS (Unverified Allergy, Unknown, 09/30/16) Medication History Scheduled Apixaban (Eliquis), 2.5 MG PO BID, (Reported) Calcitriol (Calcitriol), 0.25 MCG ORAL DAILY, (Reported) Calcium Carbonate (Calcium Carbonate), 1,250 MG ORAL BID, (Reported) Calcium Carbonate (Calcium Carbonate), 500 MG PO BID, (Reported) Cranberry Extract (Cranberry), 200 MG PO DAILY, (Reported) Cranberry Extract (Cranberry), 425 MG PO DAILY, (Reported) Cyanocobalamin (Vitamin B-12)* (Vitamin B-12*), 3,000 MCG ORAL DAILY, (Reported) Docusate Sodium* (Docusate Sodium*), 100 MG ORAL TWICE A DAY, (Reported) Epoetin Santos (Epogen), 5,000 UNIT SUBQ 3XW, (Reported) Ertapenem Sodium* (INVanz*), 1 GM IVPB Q24H Fluticasone Propionate* (Fluticasone Propionate*), 1 SPRAY NASAL DAILY, ( Reported) Folic Acid* (Folic Acid*), 1 MG ORAL DAILY, (Reported) Folic Acid/Vitamin B Comp W-C (Jessi-Barbara Tablet), 0.8 MG PO DAILY, (Reported) Furosemide* (Lasix*), 20 MG ORAL TWICE A DAY, (Reported) Furosemide* (Lasix*), 40 MG ORAL THREE TIMES A DAY, (Reported) Gabapentin* (Gabapentin*), 600 MG ORAL TWICE A DAY, (Reported) Gabapentin* (Gabapentin*), 600 MG ORAL BID, (Reported) Ipratropium/Albuterol Sulfate (DuoNeb 0.5-3(2.5)mg/3ml), 3 ML HHN EVERY 2 HOURS, (Reported) Lactobacillus Acidophilus (Probiotic), 1 EACH PO DAILY, (Reported) Letrozole (Femara), 2.5 MG ORAL DAILY, (Reported) Lidocaine (Lidocaine), 700 MG TP EVERY 24 HOURS, (Reported) Nutritional Supplement (Hi-Mark), 1,000 ML PO TID, (Reported) Pantoprazole (Pantoprazole), 40 MG ORAL DAILY, (Reported) Polyethylene Glycol 3350* (Miralax*), 17 GM ORAL DAILY, (Reported) Pravastatin Sod* (Pravastatin Sod*), 20 MG ORAL BEDTIME, (Reported) Prednisone* (Prednisone*), 10 MG ORAL DAILY, (Reported) Sevelamer Carbonate (Renvela), 800 MG ORAL THREE TIMES A DAY Sevelamer Carbonate* (Renvela*), 800 MG ORAL THREE TIMES A DAY, (Reported) Sildenafil Citrate (Revatio), 20 MG ORAL THREE TIMES A DAY Sildenafil Citrate (Sildenafil), 20 MG ORAL TID, (Reported) Vit B Cmplx 3/Fa/Vit C/Biotin (Jessi-Barbara Rx Tablet), 1 EACH PO DAILY, (Reported) Scheduled PRN Acetaminophen* (Acetaminophen*), 650 MG ORAL Q4HR PRN for Fever/Headache/Mild Pain, (Reported) Acetaminophen* (Acetaminophen 325MG Tablet*), 650 MG ORAL Q4H PRN for Mild Pain/ Temp > 100.5, (Reported) Acetaminophen* (Acetaminophen*), 650 MG ORAL Q4HR PRN for Fever/Headache/Mild Pain, (Reported) Albuterol Sulfate* (Albuterol Sulfate Hhn*), 3 ML INH EVERY 2 HOURS PRN for Shortness of Breath, (Reported) Ipratropium/Albuterol Sulfate (DuoNeb 0.5-3(2.5)mg/3ml), 3 ML HHN Q6HR PRN for Shortness of Breath, (Reported) Patient History Healthcare decision maker self Resuscitation status Full Code Advanced Directive on File Patient History Narrative PMHx: Above FHx: non pertinent from ID Social Hx: Lives in fdc. Denies toxic habits Review of Systems All Other Systems: negative except mentioned in HPI Physical Exam Physical Exam Narrative General Appearance: WD/WN HEENT: trach in palce, Respiratory/Chest: chest wall non-tender, lungs clear Cardiovascular/Chest: normal peripheral pulses, normal rate Abdomen: normal bowel sounds, non tender Ext: anasarca; R > L LE swelling, both legs with blanching erythema anteriorly from distal leg up to below knee, +warmth, non TTP, no drainage R arm swelling, erythematous,. background changes of chronic lymphedema on b/l legs Last 24 Hour Vital Signs Date Time Temp Pulse Resp B/P (MAP) Pulse Ox O2 Delivery O2 Flow Rate FiO2 11/12/16 16:32 64 16 30 11/12/16 16:00 97.6 72 19 123/73 100 Mechanical Ventilator 30 11/12/16 16:00 30 11/12/16 16:00 72 11/12/16 14:33 62 18 30 11/12/16 12:32 86 16 30 11/12/16 12:00 73 11/12/16 12:00 30 11/12/16 12:00 97.5 73 16 131/74 98 Mechanical Ventilator 11/12/16 10:51 84 16 30 11/12/16 08:30 81 16 30 11/12/16 08:00 30 11/12/16 08:00 70 11/12/16 08:00 97.8 61 23 101/42 98 Mechanical Ventilator 30 11/12/16 07:16 86 18 30 11/12/16 07:00 59 16 99/45 96 Mechanical Ventilator 30 11/12/16 06:00 59 16 91/48 97 Mechanical Ventilator 30 11/12/16 05:10 82 17 30 11/12/16 05:00 60 16 95/47 96 Mechanical Ventilator 30 11/12/16 04:00 30 11/12/16 04:00 97.5 59 16 95/43 100 Mechanical Ventilator 11/12/16 03:42 97.5 65 20 112/59 100 Mechanical Ventilator 30 11/12/16 03:37 65 11/12/16 03:10 97.3 66 20 142/97 100 Mechanical Ventilator 30 11/12/16 03:00 97.3 66 20 142/97 100 Mechanical Ventilator 30 11/12/16 02:32 70 22 30 11/12/16 00:53 60 18 30 11/11/16 22:46 78 16 30 11/11/16 21:53 77 16 100 Mechanical Ventilator 30 11/11/16 21:42 55 18 100 Mechanical Ventilator 50 11/11/16 21:03 103 21 30 11/11/16 21:03 103 21 Mechanical Ventilator 30 11/11/16 21:00 97.5 67 18 137/99 100 Mechanical Ventilator 30 11/11/16 20:52 97.5 85 18 137/99 100 Laboratory Tests Test 11/11/16 21:15 11/12/16 17:45 White Blood Count 7.0 K/UL (4.8-10.8) 5.7 K/UL (4.8-10.8) Red Blood Count 3.13 M/UL (4.20-5.40) L 2.92 M/UL (4.20-5.40) L Hemoglobin 8.6 G/DL (12.0-16.0) L 8.0 G/DL (12.0-16.0) L Hematocrit 29.8 % (37.0-47.0) L 28.0 % (37.0-47.0) L Mean Corpuscular Volume 95 FL (80-99) 96 FL (80-99) Mean Corpuscular Hemoglobin 27.5 PG (27.0-31.0) 27.5 PG (27.0-31.0) Mean Corpuscular Hemoglobin Concent 28.9 G/DL (32.0-36.0) L 28.7 G/DL (32.0-36.0) L Red Cell Distribution Width 15.6 % (11.6-14.8) H 16.0 % (11.6-14.8) H Platelet Count 192 K/UL (150-450) 182 K/UL (150-450) Mean Platelet Volume 4.7 FL (6.5-10.1) L 4.8 FL (6.5-10.1) L Neutrophils (%) (Auto) 64.5 % (45.0-75.0) % (45.0-75.0) Lymphocytes (%) (Auto) 17.2 % (20.0-45.0) L % (20.0-45.0) Monocytes (%) (Auto) 10.4 % (1.0-10.0) H % (1.0-10.0) Eosinophils (%) (Auto) 6.8 % (0.0-3.0) H % (0.0-3.0) Basophils (%) (Auto) 1.1 % (0.0-2.0) % (0.0-2.0) Prothrombin Time 11.9 SEC (9.30-11.50) H Prothromb Time International Ratio 1.1 (0.9-1.1) Activated Partial Thromboplast Time 26 SEC (23-33) Sodium Level 140 mEQ/L (135-145) Potassium Level 4.2 mEQ/L (3.4-4.9) Chloride Level 100 mEQ/L (98-107) Carbon Dioxide Level 27 mEQ/L (20-30) Anion Gap 13 (5-15) Blood Urea Nitrogen 59 mg/dL (7-23) H Creatinine 3.1 mg/dL (0.5-0.9) H Estimat Glomerular Filtration Rate mL/min (>60) Glucose Level 156 mg/dL (74-106) H Lactic Acid Level 0.90 mmol/L (0.66-2.22) Calcium Level 9.0 mg/dL (8.6-10.2) Total Bilirubin 0.4 mg/dL (0.0-1.2) Aspartate Amino Transf (AST/SGOT) 11 U/L (5-40) Alanine Aminotransferase (ALT/SGPT) 5 U/L (3-33) Alkaline Phosphatase 71 U/L (35-104) Total Creatine Kinase 63 U/L (26-140) 65 U/L (26-140) Troponin I < 0.30 ng/mL (<=0.30) Pro-B-Type Natriuretic Peptide 75228 pg/mL (0-450) H Total Protein 7.4 g/dL (6.6-8.7) Albumin 3.2 g/dL (3.5-5.2) L Globulin 4.2 g/dL Albumin/Globulin Ratio 0.7 (1.0-2.7) L Neutrophils % (Manual) Pending Lymphocytes % (Manual) Pending Platelet Estimate Pending Platelet Morphology Pending Reticulocyte Count Pending Fibrinogen 364 mg/dL (200-400) Uric Acid 10.4 mg/dL (3.0-7.5) H Iron Level Pending Unsaturated Iron Binding Pending Soluble Transferrin Receptor Pending Ferritin 507 ng/mL (13-150) H Lactate Dehydrogenase 198 U/L (135-230) Vitamin B12 Level Pending Height (Feet): 5 Height (Inches): 6.00 Weight (Pounds): 392 Medications Current Medications Medications (Trade) Dose Ordered Sig/Kalyn Route PRN Reason Start Time Stop Time Status Last Admin Dose Admin Acetaminophen (Tylenol) 650 mg Q4H PRN ORAL Mild Pain/Temp > 100.5 11/12/16 05:15 12/12/16 05:14 Albuterol Sulfate (Proventil) 2.5 mg EVERY 6 HOURS PRN HHN Shortness of Breath 11/12/16 05:15 11/17/16 05:14 Albuterol/ Ipratropium (DuoNeb 0.5-3(2.5)mg/3ml) 3 ml Q6HR PRN HHN Shortness of Breath 11/12/16 05:15 11/17/16 05:14 Apixaban (Eliquis) 2.5 mg BID ORAL 11/12/16 09:00 12/12/16 08:59 11/12/16 18:39 Calcitriol (Rocatrol) 0.25 mcg DAILY ORAL 11/12/16 09:00 12/12/16 08:59 11/12/16 10:09 Calcium Carbonate (Os-Mark) 500 mg BID ORAL 11/12/16 09:00 12/12/16 08:59 11/12/16 18:39 Cefepime HCl 1 gm/ Dextrose 55 ml @ 110 mls/hr Q12H IVPB 11/12/16 12:00 11/19/16 11:59 11/12/16 12:30 Cyanocobalamin (Vitamin B-12) 3,000 mcg DAILY ORAL 11/12/16 09:00 12/12/16 08:59 11/12/16 10:22 Docusate Sodium (Colace) 100 mg TWICE A DAY ORAL 11/12/16 09:00 12/12/16 08:59 11/12/16 18:39 Folic Acid (Folate) 1 mg DAILY ORAL 11/12/16 09:00 12/12/16 08:59 11/12/16 10:11 Furosemide (Lasix) 20 mg EVERY 12 HOURS IV 11/12/16 09:00 12/12/16 08:59 11/12/16 10:12 Gabapentin (Neurontin) 600 mg BID ORAL 11/12/16 09:00 12/12/16 08:59 11/12/16 18:39 Letrozole (Femara) 2.5 mg DAILY ORAL 11/12/16 09:00 11/17/16 08:59 11/12/16 10:10 Morphine Sulfate (Morphine Sulfate) 2 mg Q4H PRN IVP Severe Pain (Pain Scale 7-10) 11/12/16 12:00 11/19/16 11:59 11/12/16 12:34 Pantoprazole (Protonix) 40 mg DAILY IVP 11/12/16 09:00 12/12/16 08:59 11/12/16 10:12 Polyethylene Glycol (Miralax) 17 gm DAILY ORAL 11/12/16 09:00 12/12/16 08:59 11/12/16 10:11 Pravastatin Sodium (Pravachol) 20 mg BEDTIME ORAL 11/12/16 21:00 12/12/16 20:59 Sevelamer Carbonate (Renvela) 800 mg THREE TIMES A DAY ORAL 11/12/16 09:00 12/12/16 08:59 11/12/16 18:39 Sildenafil Citrate (Revatio) 20 mg THREE TIMES A DAY ORAL 11/12/16 09:00 12/12/16 08:59 11/12/16 18:39 Vancomycin HCl (Vanco rx to dose) 1 ea DAILY PRN MISC PER RX PROTOCOL 11/12/16 10:45 12/12/16 08:59 Assessment/Plan Assessment/Plan Abx: IV Vancomycin 11/11 IV Cefepime 11/11- Flagyl x1 11/11 Assesment: Cellulitis BLE and R arm- in the setting of chronic leg edema- r/o DVT -Bcx pending Anasarca/ bilateral leg lymphedema -CXR: Limited evaluation. Suspected interstitial edema Afebrile, no leukocytosis REnal insufficiency chronic resp failure, vent/trach dependent, Gtbue, pAfib, CHF, pleural effusion , MINA, CKD, GERD, morbid obseity, NH resident Plan: -Switch IV Vancomycin and Cefepime to [facility] for cellulitis (abx #2/7-10) -f/u venous duplex -extremity elevation -f/u cx -Monitor CBC/BMP, temperatures Thank you for this consultation. Will continue to follow along with you. 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 NANCI. Danielle Guo M.D. Nov 12, 2016 19:06
[2016-11-12 19:27] LABS: BASOPHILS % (MANUAL) 1 % (0-2); EOSINOPHILS % (MANUAL) 10 % (0-3); LYMPHOCYTES % (MANUAL) 18 % (20-45); NEUTROPHILS % (MANUAL) 63 % (45-75); TOTAL CELLS COUNTED 100
[2016-11-12 19:29] LABS: ANISOCYTOSIS 2+; BAND NEUTROPHILS % (MANUAL) 0 % (0-8); MACROCYTES 1+; PLATELET ESTIMATE ADEQUATE; PLATELET MORPHOLOGY NORMAL; POLYCHROMASIA 1+
[2016-11-12 19:33] LABS: APPEARANCE,URINE SLIGHTLY CLOUDY; KETONES,URINE NEGATIVE (NEGATIVE); LEUKOCYTE ESTERASE ,URINE 1+ (NEGATIVE); NITRITE,URINE NEGATIVE (NEGATIVE); PH,URINE 5 (4.5-8.0); PROTEIN,URINE 3+ (NEGATIVE); UROBILINOGEN,URINE NORMAL MG/DL (0.0-1.0)
[2016-11-12 19:53] LABS: PATH BLOOD SMEAR/OMC SENT TO PATHOLOGIST; RETICULOCYTE COUNT 0.7 % (0.0-2.0)
[2016-11-12 20:02] LABS: BACTERIA,URINE FEW /HPF; RBC,URINE 20-30 /HPF (0 - 2); SQUAMOUS EPITHELIAL CELL,UR OCCASIONAL /LPF (NONE/OCC); WBC,URINE 30-40 /HPF (0 - 2)
[2016-11-12] MEDS ORDERED: cefTRIAXone 2 GM in D5W 110 ML IVPB SCH (22:15)
[2016-11-13] VITALS (7 sets, daily range): BP systolic 86–134; BP diastolic 43–74
--- NOTE | 2016-11-13 | History and Physical Report ---
DATE OF ADMISSION: 11/11/2016 CHIEF COMPLAINT: Generalized swelling. History Of Present Illness: This is a 76-year-old female, morbidly obese, with history of hypercapnic respiratory failure, status post trach, now vent dependent, who was brought in from her care facility after she was noted to be diffusely swollen especially her arms. She had complained of pain. She was evaluated in the ER and was noted to have cellulitis of her lower legs as well as anasarca. The patient will be started on intravenous antibiotics and Lasix and admitted for further care. Past Medical History: History of diabetes mellitus, diet controlled, history of chronic hypercapnic respiratory failure, now vent dependent, history of recurrent UTIs, history of obstructive sleep apnea, history of morbid obesity, history of pulmonary hypertension, history of osteoarthritis, history of anemia, history of chronic kidney disease, stage 4, history of breast cancer, status post lumpectomy, and status post tracheostomy. ALLERGIES: The patient is allergic to amoxicillin and penicillin. HOME MEDICATIONS: Reconciled in link. Family History: Mother at age 95 of natural causes, otherwise noncontributory. Social History: The patient is single. No history of smoking, drugs, or alcohol use. PHYSICAL EXAMINATION: Vital Signs: Blood pressure is 101/42, pulse is 70, respiratory rate is 23, and temperature is 97.8. She is on mechanical ventilator. GENERAL: Morbidly obese female, aching, more swollen than usual. HEENT: Normocephalic and atraumatic. Extraocular muscles are intact. Pupils are equal and reactive to light. Anicteric sclerae. Oropharynx is dry with poor dentition. Trach is in place in the neck. CHEST: Diminished breath sounds. CARDIOVASCULAR: Normal S1 and S2. No murmurs, rubs, or gallops. ABDOMEN: Obese and diffusely swollen and firm to touch. EXTREMITIES: There is 4+ edema of bilateral lower legs and arms. SKIN: With erythema over the lower legs and forearms. Neurologic: The patient is awake, alert, and oriented x4. Cranial nerves II through XII were grossly intact. Unable to do full exam as the patient is not cooperative. Laboratory And Diagnostic Data: On admission, the patient's white blood cell count is 7, hemoglobin is 8.6, hematocrit 29.8, and platelet count is 192,000. INR is 1.1. ProTime is 11.9. PTT is 26. Chemistry panel shows sodium 140, potassium 4.2, chloride 100, carbon dioxide 27, anion gap of 13, BUN is elevated at 59, creatinine is 3.1, and glucose is 156. Beta-natriuretic peptide is markedly elevated at 16,720. Total protein 7.4. Albumin 3.4. Chest x-ray done in the ER shows interstitial edema. Impression And Plan: This is a 76-year-old, morbidly obese female, admitted with anasarca and cellulitis of the lower leg. The patient was admitted to the observation unit on the monitor with the following medical problems. 1. Anasarca. She appears to be markedly swollen. She will need diuresis. Place the patient on Lasix 20 mg intravenous for now q.12 hours. Cardiology and Pulmonary on the case. We will follow orders. Check laboratory studies daily. 2. Chronic hypercapnic respiratory failure. Continue with vent support per Pulmonary. 3. History of anemia and appears to be stable. Continue monitoring CBC daily. 4. Pulmonary hypertension. Continue with Eliquis 2.5 mg twice a day and medications per Pulmonary and Cardiology. 5. Chronic kidney disease. We will monitor BUN and creatinine. Gentle diuresis for now. Nephrology has been consulted. Consider further workup including renal ultrasound. 6. DVT prophylaxis. The patient is on Eliquis. The patient is Full Code. Manny Nolan M.D. DR: JINA JOB#: [id number] CC:
[2016-11-13] MEDS ORDERED: Vancomycin 1.5gm/D5W 250ml 250 ML IVPB SCH (01:00)
[2016-11-13 04:58] LABS: EOSINOPHILS % (AUTO) 7.8 % (0.0-3.0); LYMPHOCYTES % (AUTO) 14.5 % (20.0-45.0); MEAN CORPUSCULAR HEMOGLOBIN 28.7 PG (27.0-31.0); MEAN CORPUSCULAR HGB CONC 30.4 G/DL (32.0-36.0); MEAN CORPUSCULAR VOLUME 94 FL (80-99); MEAN PLATELET VOLUME 5.3 FL (6.5-10.1); MONOCYTES % (AUTO) 9.7 % (1.0-10.0); PLATELET COUNT 200 K/UL (150-450); WHITE BLOOD COUNT 5.7 K/UL (4.8-10.8)
[2016-11-13 05:33] LABS: ANION GAP 12 (5-15); CARBON DIOXIDE 28 mEQ/L (20-30); CHLORIDE 103 mEQ/L (98-107); CREATININE 3.1 mg/dL (0.5-0.9); HEMOLYSIS 0; MAGNESIUM 1.8 mg/dL (1.7-2.5); PHOSPHORUS 4.9 mg/dL (2.5-4.8); POTASSIUM 4.4 mEQ/L (3.4-4.9); SODIUM 143 mEQ/L (135-145)
[2016-11-13] MEDS: Calcitriol 0.25mcg Cap ORAL SCH (09:18)
[2016-11-13] MEDS: Revatio 20mg tab ORAL SCH ×3 (09:18→17:34)
[2016-11-13] MEDS: Miralax 17gm pkt ORAL SCH (09:18)
[2016-11-13] MEDS: Vitamin B-12 500mcg tab ORAL SCH (09:18)
[2016-11-13] MEDS: Eliquis 2.5mg tablet ORAL SCH ×2 (09:19→17:33)
[2016-11-13] MEDS: Pantoprazole Inj IVP SCH (09:19)
[2016-11-13] MEDS: Docusate 100mg cap ORAL SCH ×2 (09:19→17:33)
[2016-11-13] MEDS: Morphine Sulfate 2mg/ml Inj IVP PRN ×2 (09:22→18:30)
--- NOTE | 2016-11-13 09:50 | Infectious Diseases Prog Note ---
Assessment/Plan Assessment/Plan Abx: IV Vancomycin 11/11-11/12 IV Cefepime 11/11-11/12 IV Ancef 11/12 Flagyl x1 11/11 Assesment: Cellulitis BLE and R arm- in the setting of chronic leg edema- r/o DVT -Bcx pending Anasarca/ bilateral leg lymphedema -CXR: Limited evaluation. Suspected interstitial edema Afebrile, no leukocytosis REnal insufficiency chronic resp failure, vent/trach dependent, Gtbue, pAfib, CHF, pleural effusion , MINA, CKD, GERD, morbid obseity, NH resident Plan: -Continue Ancef #2 for cellulitis (abx #3/7-14) -expect slow improvement given significant swelling; won't change abx unless febrile, worsenign leukocytosis or worsening cellulitis -f/u venous duplex -extremity elevation -edema management -f/u cx -Monitor CBC/BMP, temperatures Thank you for this consultation. Will continue to follow along with you. 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 RN. Subjective Allergies: Coded Allergies: AMOXICILLIN (Verified Allergy, Mild, RASH, 09/30/16) PENICILLINS (Unverified Allergy, Unknown, 09/30/16) Subjective afebrile VSS no leukocytosis Bcx NTD Objective Vital Signs Last 24 Hour Vital Signs Date Time Temp Pulse Resp B/P (MAP) Pulse Ox O2 Delivery O2 Flow Rate FiO2 11/13/16 08:00 97.7 82 21 134/74 96 Mechanical Ventilator 30 11/13/16 07:25 71 16 30 11/13/16 05:28 76 28 30 11/13/16 04:00 30 11/13/16 04:00 70 11/13/16 04:00 97.3 84 19 108/61 93 Mechanical Ventilator 30 11/13/16 02:39 81 16 30 11/13/16 01:45 76 16 30 11/13/16 00:00 97.2 78 19 107/70 94 Mechanical Ventilator 30 11/12/16 23:30 68 11/12/16 22:48 75 17 30 11/12/16 21:04 68 26 30 11/12/16 20:00 70 11/12/16 20:00 30 11/12/16 19:55 97.1 76 19 102/73 94 Mechanical Ventilator 30 11/12/16 19:12 73 18 30 11/12/16 16:32 64 16 30 11/12/16 16:00 97.6 72 19 123/73 100 Mechanical Ventilator 30 11/12/16 16:00 30 11/12/16 16:00 72 11/12/16 14:33 62 18 30 11/12/16 12:32 86 16 30 11/12/16 12:00 73 11/12/16 12:00 30 11/12/16 12:00 97.5 73 16 131/74 98 Mechanical Ventilator 30 11/12/16 10:51 84 16 30 Height (Feet): 5 Height (Inches): 6.00 Weight (Pounds): 406 Objective General Appearance: WD/WN HEENT: trach in palce, Respiratory/Chest: chest wall non-tender, lungs clear Cardiovascular/Chest: normal peripheral pulses, normal rate Abdomen: normal bowel sounds, non tender Ext: anasarca; R > L LE swelling, both legs with blanching erythema anteriorly from distal leg up to below knee, +warmth, non TTP, no drainage R arm swelling, erythematous,. background changes of chronic lymphedema on b/l legs Microbiology Date/Time Source Procedure Growth Status 11/11/16 21:15 Blood Blood Culture - Preliminary NO GROWTH AFTER 24 HOURS Resulted 11/11/16 21:00 Blood Blood Culture - Preliminary NO GROWTH AFTER 24 HOURS Resulted 11/12/16 02:50 Nasal Nares MRSA Culture - Final NO METHICILLIN RESISTANT STAPH AUREUS... Complete 11/12/16 18:30 Urine,Clean Catch Urine Culture - Preliminary NO GROWTH Resulted Laboratory Tests Test 11/12/16 17:45 11/12/16 18:30 11/13/16 04:15 White Blood Count 5.7 K/UL (4.8-10.8) 5.7 K/UL (4.8-10.8) Red Blood Count 2.92 M/UL (4.20-5.40) L 3.00 M/UL (4.20-5.40) L Hemoglobin 8.0 G/DL (12.0-16.0) L 8.6 G/DL (12.0-16.0) L Hematocrit 28.0 % (37.0-47.0) L 28.3 % (37.0-47.0) L Mean Corpuscular Volume 96 FL (80-99) 94 FL (80-99) Mean Corpuscular Hemoglobin 27.5 PG (27.0-31.0) 28.7 PG (27.0-31.0) Mean Corpuscular Hemoglobin Concent 28.7 G/DL (32.0-36.0) L 30.4 G/DL (32.0-36.0) L Red Cell Distribution Width 16.0 % (11.6-14.8) H 16.0 % (11.6-14.8) H Platelet Count 182 K/UL (150-450) 200 K/UL (150-450) Mean Platelet Volume 4.8 FL (6.5-10.1) L 5.3 FL (6.5-10.1) L Neutrophils (%) (Auto) % (45.0-75.0) 67.0 % (45.0-75.0) Lymphocytes (%) (Auto) % (20.0-45.0) 14.5 % (20.0-45.0) L Monocytes (%) (Auto) % (1.0-10.0) 9.7 % (1.0-10.0) Eosinophils (%) (Auto) % (0.0-3.0) 7.8 % (0.0-3.0) H Basophils (%) (Auto) % (0.0-2.0) 1.0 % (0.0-2.0) Differential Total Cells Counted 100 Neutrophils % (Manual) 63 % (45-75) Lymphocytes % (Manual) 18 % (20-45) L Monocytes % (Manual) 8 % (1-10) Eosinophils % (Manual) 10 % (0-3) H Basophils % (Manual) 1 % (0-2) Band Neutrophils 0 % (0-8) Platelet Estimate Adequate Platelet Morphology Normal Polychromasia 1+ Anisocytosis 2+ Macrocytosis 1+ Reticulocyte Count 0.7 % (0.0-2.0) Fibrinogen 364 mg/dL (200-400) Uric Acid 10.4 mg/dL (3.0-7.5) H Iron Level 33 ug/dL (37-145) L Total Iron Binding Capacity 171 ug/dL (250-400) L Percent Iron Saturation 19 % (15-50) Unsaturated Iron Binding 138 ug/dL (112-346) Soluble Transferrin Receptor Pending Ferritin 507 ng/mL (13-150) H Lactate Dehydrogenase 198 U/L (135-230) Total Creatine Kinase 65 U/L (26-140) Vitamin B12 Level > 2000 pg/mL (211-946) H Urine Color Pale yellow Urine Appearance Slightly cloudy Urine pH 5 (4.5-8.0) Urine Specific [place] 1.015 (1.005-1.035) Urine Protein 3+ (NEGATIVE) H Urine Glucose (UA) Negative (NEGATIVE) Urine Ketones Negative (NEGATIVE) Urine Occult Blood 5+ (NEGATIVE) H Urine Nitrite Negative (NEGATIVE) Urine Bilirubin Negative (NEGATIVE) Urine Urobilinogen Normal MG/DL (0.0-1.0) Urine Leukocyte Esterase 1+ (NEGATIVE) H Urine RBC 20-30 /HPF (0 - 2) H Urine WBC 30-40 /HPF (0 - 2) H Urine Squamous Epithelial Cells Occasional /LPF Urine Bacteria Few /HPF (NONE) Urine Eosinophils None seen Urine Random Sodium 28 mmol/L Urine Potassium Timed 34 mmol/L (12-62) Sodium Level 143 mEQ/L (135-145) Potassium Level 4.4 mEQ/L (3.4-4.9) Chloride Level 103 mEQ/L (98-107) Carbon Dioxide Level 28 mEQ/L (20-30) Anion Gap 12 (5-15) Blood Urea Nitrogen 71 mg/dL (7-23) H Creatinine 3.1 mg/dL (0.5-0.9) H Estimat Glomerular Filtration Rate mL/min (>60) Glucose Level 138 mg/dL (74-106) H Calcium Level 9.0 mg/dL (8.6-10.2) Phosphorus Level 4.9 mg/dL (2.5-4.8) H Magnesium Level 1.8 mg/dL (1.7-2.5) Pro-B-Type Natriuretic Peptide 05257 pg/mL (0-450) H Random Vancomycin Level 16.7 ug/mL Current Medications Medications (Trade) Dose Ordered Sig/Kalyn Route PRN Reason Start Time Stop Time Status Last Admin Dose Admin Acetaminophen (Tylenol) 650 mg Q4H PRN ORAL Mild Pain/Temp > 100.5 11/12/16 05:15 12/12/16 05:14 Albuterol Sulfate (Proventil) 2.5 mg EVERY 6 HOURS PRN HHN Shortness of Breath 11/12/16 05:15 11/17/16 05:14 Albuterol/ Ipratropium (DuoNeb 0.5-3(2.5)mg/3ml) 3 ml Q6HR PRN HHN Shortness of Breath 11/12/16 05:15 11/17/16 05:14 Apixaban (Eliquis) 2.5 mg BID ORAL 11/12/16 09:00 12/12/16 08:59 11/13/16 09:19 Calcitriol (Rocatrol) 0.25 mcg DAILY ORAL 11/12/16 09:00 12/12/16 08:59 11/13/16 09:18 Calcium Carbonate (Os-Mark) 500 mg BID ORAL 11/12/16 09:00 12/12/16 08:59 11/13/16 09:18 Ceftriaxone Sodium 2 gm/ Dextrose 110 ml @ 220 mls/hr Q24H IVPB 11/12/16 22:15 11/19/16 22:14 11/12/16 23:02 Cyanocobalamin (Vitamin B-12) 3,000 mcg DAILY ORAL 11/12/16 09:00 12/12/16 08:59 11/13/16 09:18 Docusate Sodium (Colace) 100 mg TWICE A DAY ORAL 11/12/16 09:00 12/12/16 08:59 11/13/16 09:19 Folic Acid (Folate) 1 mg DAILY ORAL 11/12/16 09:00 12/12/16 08:59 11/13/16 09:19 Furosemide (Lasix) 20 mg EVERY 12 HOURS IV 11/12/16 09:00 12/12/16 08:59 11/13/16 09:20 Gabapentin (Neurontin) 600 mg BID ORAL 11/12/16 09:00 12/12/16 08:59 11/13/16 09:18 Letrozole (Femara) 2.5 mg DAILY ORAL 11/12/16 09:00 11/17/16 08:59 11/13/16 09:19 Morphine Sulfate (Morphine Sulfate) 2 mg Q4H PRN IVP Severe Pain (Pain Scale 7-10) 11/12/16 12:00 11/19/16 11:59 11/13/16 09:22 Pantoprazole (Protonix) 40 mg DAILY IVP 11/12/16 09:00 12/12/16 08:59 11/13/16 09:19 Polyethylene Glycol (Miralax) 17 gm DAILY ORAL 11/12/16 09:00 12/12/16 08:59 11/13/16 09:18 Pravastatin Sodium (Pravachol) 20 mg BEDTIME ORAL 11/12/16 21:00 12/12/16 20:59 11/12/16 20:39 Sevelamer Carbonate (Renvela) 800 mg THREE TIMES A DAY ORAL 11/12/16 09:00 12/12/16 08:59 11/13/16 09:18 Sildenafil Citrate (Revatio) 20 mg THREE TIMES A DAY ORAL 11/12/16 09:00 12/12/16 08:59 11/13/16 09:18 Danielle Guo M.D. Nov 13, 2016 09:50
--- NOTE | 2016-11-13 10:26 | Consultation ---
Consult Note Consult Note asked to eval for renal failure- patient known to me from her previous admissions Patient is ventilator dependent. She's sent in for edema of her lower extremities and also right arm. This is been worsening for several weeks. Now the legs are red and quite painful. She is able to vocalize, even though she has trach. She states pain in legs 10/10, burning and aching. Calfs more than upper legs, without radiation. Constant pain. Denies meds given to help. She has chronic sputum which is unchanged. She denies chest pain or increased dyspnea. No change in bowels. She has weakness of all extrem. No increased pain in R arm. No NVD. examined- data reviewed- Assessment/Plan Cellulitis BLE and R arm- in the setting of chronic leg edema- r/o DVT Anasarca/ bilateral leg lymphedema CKD- and acute renal failure - Cr 3.1 unchanged since last admission- Acute respiratory failure s/p Trach Obese COPD , CHF, Diastolic MINA UTI Anemia GI Bleed, GI bleeding At Fib Pulm HTN h/o Low B12 Monitor renal parameters- avoid nephrotoxics- pulmonary support- transfuse as needed COURTNEY LOPEZ Nov 13, 2016 10:26
--- NOTE | 2016-11-13 11:36 | Pulmonology Progress Note ---
Assessment/Plan Problems: (1) Chronic respiratory failure (2) Anasarca (3) ATN (acute tubular necrosis) (4) Anemia (5) Peripheral edema (6) Pickwickian syndrome (7) MINA (obstructive sleep apnea) (8) Morbid obesity Respiratory: monitor respiratory rate, adjust FIO2, CXR Cardiac: continue to monitor HR/BP Renal: F/U I&O, keep IV fluid Infectious Disease: check cultures, continue antibiotics Gastrointestinal: continue feedings/current rate Endocrine: monitor blood sugar, check TSH, continue sliding scale insulin Hematologic: transfuse if hgb<8.5 Neurologic: PRN Ativan, PRN Morphine, keep patient comfortable Prophylaxis: Protonix Notes Reviewed: patient access registrar, cardio, renal 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: nurses, consultants, case packer Subjective ROS Limited/Unobtainable: No Constitutional: Reports: no symptoms HEENT: Repors: no symptoms Respiratory: Reports: no symptoms Allergies: Coded Allergies: AMOXICILLIN (Verified Allergy, Mild, RASH, 09/30/16) PENICILLINS (Unverified Allergy, Unknown, 09/30/16) Objective Last 24 Hour Vital Signs Date Time Temp Pulse Resp B/P (MAP) Pulse Ox O2 Delivery O2 Flow Rate FiO2 11/13/16 09:58 84 17 30 11/13/16 08:00 97.7 82 21 134/74 96 Mechanical Ventilator 30 11/13/16 08:00 78 11/13/16 07:25 71 16 30 11/13/16 05:28 76 28 30 11/13/16 04:00 30 11/13/16 04:00 70 11/13/16 04:00 97.3 84 19 108/61 93 Mechanical Ventilator 30 11/13/16 02:39 81 16 30 11/13/16 01:45 76 16 30 11/13/16 00:00 97.2 78 19 107/70 94 Mechanical Ventilator 30 11/12/16 23:30 68 11/12/16 22:48 75 17 30 11/12/16 21:04 68 26 30 11/12/16 20:00 70 11/12/16 20:00 30 11/12/16 19:55 97.1 76 19 102/73 94 Mechanical Ventilator 30 11/12/16 19:12 73 18 30 11/12/16 16:32 64 16 30 11/12/16 16:00 97.6 72 19 123/73 100 Mechanical Ventilator 30 11/12/16 16:00 30 11/12/16 16:00 72 11/12/16 14:33 62 18 30 11/12/16 12:32 86 16 30 11/12/16 12:00 73 11/12/16 12:00 30 11/12/16 12:00 97.5 73 16 131/74 98 Mechanical Ventilator 30 General Appearance: WD/WN HEENT: normocephalic, atraumatic Respiratory/Chest: chest wall non-tender, lungs clear Cardiovascular: normal peripheral pulses, regular rhythm Abdomen: normal bowel sounds, soft, non tender Microbiology Date/Time Source Procedure Growth Status 11/11/16 21:15 Blood Blood Culture - Preliminary NO GROWTH AFTER 24 HOURS Resulted 11/11/16 21:00 Blood Blood Culture - Preliminary NO GROWTH AFTER 24 HOURS Resulted 11/12/16 02:50 Nasal Nares MRSA Culture - Final NO METHICILLIN RESISTANT STAPH AUREUS... Complete 11/12/16 18:30 Urine,Clean Catch Urine Culture - Preliminary NO GROWTH Resulted Laboratory Tests 11/12/16 17:45: White Blood Count 5.7, Red Blood Count 2.92L, Hemoglobin 8.0L, Hematocrit 28.0L , Mean Corpuscular Volume 96, Mean Corpuscular Hemoglobin 27.5, Mean Corpuscular Hemoglobin Concent 28.7L, Red Cell Distribution Width 16.0H, Platelet Count 182, Mean Platelet Volume 4.8L, Neutrophils (%) (Auto) , Lymphocytes (%) (Auto) , Monocytes (%) (Auto) , Eosinophils (%) (Auto) , Basophils (%) (Auto) , Differential Total Cells Counted 100, Neutrophils % ( Manual) 63, Lymphocytes % (Manual) 18L, Monocytes % (Manual) 8, Eosinophils % ( Manual) 10H, Basophils % (Manual) 1, Band Neutrophils 0, Platelet Estimate Adequate, Platelet Morphology Normal, Polychromasia 1+, Anisocytosis 2+, Macrocytosis 1+, Reticulocyte Count 0.7, Fibrinogen 364, Uric Acid 10.4H, Iron Level 33L, Total Iron Binding Capacity 171L, Percent Iron Saturation 19, Unsaturated Iron Binding 138, Soluble Transferrin Receptor [Pending], Ferritin 507H, Lactate Dehydrogenase 198, Total Creatine Kinase 65, Vitamin B12 Level > 2000H 11/12/16 18:30: Urine Color Pale yellow, Urine Appearance Slightly cloudy, Urine pH 5, Urine Specific [place] 1.015, Urine Protein 3+H, Urine Glucose (UA) Negative, Urine Ketones Negative, Urine Occult Blood 5+H, Urine Nitrite Negative, Urine Bilirubin Negative, Urine Urobilinogen Normal, Urine Leukocyte Esterase 1+H, Urine RBC 20-30H, Urine WBC 30-40H, Urine Squamous Epithelial Cells Occasional, Urine Bacteria Few, Urine Eosinophils None seen, Urine Random Sodium 28, Urine Potassium Timed 34 11/13/16 04:15: White Blood Count 5.7, Red Blood Count 3.00L, Hemoglobin 8.6L, Hematocrit 28.3L , Mean Corpuscular Volume 94, Mean Corpuscular Hemoglobin 28.7, Mean Corpuscular Hemoglobin Concent 30.4L, Red Cell Distribution Width 16.0H, Platelet Count 200, Mean Platelet Volume 5.3L, Neutrophils (%) (Auto) 67.0, Lymphocytes (%) (Auto) 14.5L, Monocytes (%) (Auto) 9.7, Eosinophils (%) (Auto) 7.8H, Basophils (%) (Auto) 1.0, Sodium Level 143, Potassium Level 4.4, Chloride Level 103, Carbon Dioxide Level 28, Anion Gap 12, Blood Urea Nitrogen 71H, Creatinine 3.1H, Estimat Glomerular Filtration Rate , Glucose Level 138H, Calcium Level 9.0, Phosphorus Level 4.9H, Magnesium Level 1.8, Pro-B-Type Natriuretic Peptide 96993D, Random Vancomycin Level 16.7 Current Medications Medications (Trade) Dose Ordered Sig/Kalyn Route PRN Reason Start Time Stop Time Status Last Admin Dose Admin Acetaminophen (Tylenol) 650 mg Q4H PRN ORAL Mild Pain/Temp > 100.5 11/12/16 05:15 12/12/16 05:14 Albuterol Sulfate (Proventil) 2.5 mg EVERY 6 HOURS PRN HHN Shortness of Breath 11/12/16 05:15 11/17/16 05:14 Albuterol/ Ipratropium (DuoNeb 0.5-3(2.5)mg/3ml) 3 ml Q6HR PRN HHN Shortness of Breath 11/12/16 05:15 11/17/16 05:14 Apixaban (Eliquis) 2.5 mg BID ORAL 11/12/16 09:00 12/12/16 08:59 11/13/16 09:19 Calcitriol (Rocatrol) 0.25 mcg DAILY ORAL 11/12/16 09:00 12/12/16 08:59 11/13/16 09:18 Calcium Carbonate (Os-Mark) 500 mg BID ORAL 11/12/16 09:00 12/12/16 08:59 11/13/16 09:18 Ceftriaxone Sodium 2 gm/ Dextrose 110 ml @ 220 mls/hr Q24H IVPB 11/12/16 22:15 11/19/16 22:14 11/12/16 23:02 Cyanocobalamin (Vitamin B-12) 3,000 mcg DAILY ORAL 11/12/16 09:00 12/12/16 08:59 11/13/16 09:18 Docusate Sodium (Colace) 100 mg TWICE A DAY ORAL 11/12/16 09:00 12/12/16 08:59 11/13/16 09:19 Folic Acid (Folate) 1 mg DAILY ORAL 11/12/16 09:00 12/12/16 08:59 11/13/16 09:19 Furosemide (Lasix) 20 mg EVERY 12 HOURS IV 11/12/16 09:00 12/12/16 08:59 11/13/16 09:20 Gabapentin (Neurontin) 600 mg BID ORAL 11/12/16 09:00 12/12/16 08:59 11/13/16 09:18 Letrozole (Femara) 2.5 mg DAILY ORAL 11/12/16 09:00 11/17/16 08:59 11/13/16 09:19 Morphine Sulfate (Morphine Sulfate) 2 mg Q4H PRN IVP Severe Pain (Pain Scale 7-10) 11/12/16 12:00 11/19/16 11:59 11/13/16 09:22 Pantoprazole (Protonix) 40 mg DAILY IVP 11/12/16 09:00 12/12/16 08:59 11/13/16 09:19 Polyethylene Glycol (Miralax) 17 gm DAILY ORAL 11/12/16 09:00 12/12/16 08:59 11/13/16 09:18 Pravastatin Sodium (Pravachol) 20 mg BEDTIME ORAL 11/12/16 21:00 12/12/16 20:59 10/6/17 20:39 Sevelamer Carbonate (Renvela) 800 mg THREE TIMES A DAY ORAL 11/12/16 09:00 12/12/16 08:59 11/13/16 09:18 Sildenafil Citrate (Revatio) 20 mg THREE TIMES A DAY ORAL 11/12/16 09:00 12/12/16 08:59 11/13/16 09:18 ARASH MIRANDA Nov 13, 2016 11:36
[2016-11-13] MEDS ORDERED: ceFAZolin 2gm/D5W 50ml Premix IV ONE (17:00)
[2016-11-13] MEDS ORDERED: Tubing IV Secondary IV ONE (18:09)
--- NOTE | 2016-11-13 19:03 | Emergency Room Report ---
Physical Exam Asked to evaluate trach and assist with changing. Allegedly, patient gasping and talking around trach. Patient was evaluated by me and admitted. She is calm and complains of pain in her neck. Sats now 99%. See Hospital Course for additional evaluation and treatment. Last 24 Hour Vital Signs Date Time Temp Pulse Resp B/P (MAP) Pulse Ox O2 Delivery O2 Flow Rate FiO2 11/13/16 17:52 91 20 50 11/13/16 16:00 97.2 94 20 110/66 99 Mechanical Ventilator 50 11/13/16 16:00 50 11/13/16 15:47 86 16 50 11/13/16 15:00 50 11/13/16 13:20 83 19 30 11/13/16 12:00 97.5 94 19 103/67 91 Mechanical Ventilator 30 11/13/16 12:00 74 11/13/16 12:00 30 11/13/16 11:42 87 17 30 11/13/16 09:58 84 17 30 11/13/16 08:00 97.7 82 21 134/74 96 Mechanical Ventilator 30 11/13/16 08:00 30 11/13/16 08:00 78 11/13/16 07:25 71 16 30 11/13/16 05:28 76 28 30 11/13/16 04:00 30 11/13/16 04:00 70 11/13/16 04:00 97.3 84 19 108/61 93 Mechanical Ventilator 30 11/13/16 02:39 81 16 30 11/13/16 01:45 76 16 30 11/13/16 00:00 97.2 78 19 107/70 94 Mechanical Ventilator 30 11/12/16 23:30 68 11/12/16 22:48 75 17 30 11/12/16 21:04 68 26 30 11/12/16 20:00 70 11/12/16 20:00 30 11/12/16 19:55 97.1 76 19 102/73 94 Mechanical Ventilator 30 11/12/16 19:12 73 18 30 Sp02 EP Interpretation: reviewed, abnormal - determined to be low by me General Appearance: no apparent distress, GCS 15 Eyes: bilateral eye normal inspection, bilateral eye PERRL ENT: moist mucus membranes Neck: tracheotomy Respiratory: no respiratory distress, crackles, wheezing, expiration Cardiovascular #1: normal peripheral pulses, edema Gastrointestinal: normal inspection Musculoskeletal: swelling Neurologic: normal inspection, alert Psychiatric: mood/affect normal Intubation Intubation : Consent: Emergent Tube Size (cm): 6.5 Medications: Other - none Breath Sounds after Intubation: equal Intubation Complications: O2 saturation decreased - to 81% transiently, also bleeding - see below Post Intubation Xray: Yes Attempts: Other - see below Patient Tolerated: Well Complications: Other Progress Patient not receiving volumes and balloon on XRT Schiley not working. Patient appeared to be retaining CO2. Emergent change of trach indicated. Patient pre-oxygenated. A Bougie was passed with ease. The dysfunctional trach was removed. This caused bleeding and there appeared to be some granulation tissue in the trach. An 8 XRT was threaded over the Bougie, but it was clear this was not going to pass. A 6 fenestrated Schiley was then passed with ease. There was not free air flow, though some passage of air was possible. This was removed. O2 sats dropped transiently to 81%. A 6.5 ET tube was passed without Bougie or stylette with ease. BS were bilat (per RT). O2 sats immediately improved to 100%. Tidal volumes with ease and not increased pressure on vent. CXR with R mainstem intubation. ET removed 3 cm. CXR with aeration on L now with effusion, however ET still in R mainstem. ET removed 2 cm and repeat CXR ordered. Patient with improved mentation and tolerated the procedure well. Medical Decision Making Diagnostic Impression: Primary Impression: Dysfunctional tracheostomy tube Additional Impressions: Tracheal hemorrhage Pleural effusion, left ER Course Called and evaluated tracheostomy. Yesterday the patient had the same issues of being to speak around the trach. She is in no respiratory distress at this time. She complains of pain in her neck but no shortness of breath. RT with difficulty assessing TV actually delivered. At this point changing the tracheostomy is not an emergent issue the patient is stable. If she starts to deteriorate and is not getting volumes than weakened emergently change the tracheostomy at that time. 22:20 Balloon not holding volume. Looks like patient retaining CO2 (not in distress). Bleeding when old trach removed. Possible granulation tissue in trach. See procedure. ET placed through trach finally. Good BS bilat. Some blood. No active bleeding. O2 sats and patient improved after replacement. CXR with R mainstem intubation corrected. Final xray Tube on trever, but good aeration bilat with L effusion. Decision to leave where it is. ABG with some resp acidosis and hyperoxemia. Will have RT adjust vent. Patient improved. Last 24 Hour Vital Signs Date Time Temp Pulse Resp B/P (MAP) Pulse Ox O2 Delivery O2 Flow Rate FiO2 11/14/16 01:11 99 20 50 11/13/16 23:39 99 20 50 11/13/16 21:21 99 16 50 11/13/16 20:00 50 11/13/16 20:00 100 11/13/16 20:00 97.5 100 20 90/43 Room Air 100 11/13/16 19:01 98 17 50 11/13/16 17:52 91 20 50 11/13/16 16:00 97.2 94 20 110/66 99 Mechanical Ventilator 50 11/13/16 16:00 95 11/13/16 16:00 50 11/13/16 15:47 86 16 50 11/13/16 15:00 50 11/13/16 13:20 83 19 30 11/13/16 12:00 97.5 94 19 103/67 91 Mechanical Ventilator 30 11/13/16 12:00 74 11/13/16 12:00 30 11/13/16 11:42 87 17 30 11/13/16 09:58 84 17 30 11/13/16 08:00 97.7 82 21 134/74 96 Mechanical Ventilator 30 11/13/16 08:00 30 11/13/16 08:00 78 11/13/16 07:25 71 16 30 11/13/16 05:28 76 28 30 11/13/16 04:00 30 11/13/16 04:00 70 11/13/16 04:00 97.3 84 19 108/61 93 Mechanical Ventilator 30 11/13/16 02:39 81 16 30 Rhythm Strip Diag. Results EP Interpretation: yes Rhythm: NSR, no PVC's, no ectopy Chest X-Ray Diagnostic Results Chest X-Ray Ordered: Yes # of Views/Limited/Complete: 1 View EP Interpretation: Yes Interpretation: no pneumothorax, other - ET in R mainstem with whiteout L Impression: Other Interpreting ER Provider: Corby Day MD Other X-Ray Diagnostic Results X-Ray ordered: CXR #2 # of Views/Limited Vs Complete: 1 View EP Interpretation: Yes Interpretation: other - ET still in R mainstem, but good aeration L with effusion L Indication: Other Impression: Other Interpreting ER Provider: Corby Day MD Last Vital Signs Date Time Temp Pulse Resp B/P (MAP) Pulse Ox O2 Delivery O2 Flow Rate FiO2 11/14/16 01:11 99 20 50 11/13/16 20:00 97.5 90/43 Room Air 11/13/16 16:00 99 Status: improved Disposition: ADMITTED INPATIENT Condition: Serious Referrals: ARASH MIRANDA (PCP) Corby Day M.D. Nov 13, 2016 19:03
[2016-11-13] MEDS: ceFAZolin 1gm in D5W 55ml IVPB SCH (20:06)
--- NOTE | 2016-11-13 22:36 | General Progress Note ---
Assessment/Plan Status: deteriorating Assessment/Plan This is a 76-year-old, morbidly obese female, admitted with anasarca and cellulitis of the lower leg. The patient was admitted to the observation unit on the monitor with the following medical problems. 1. Anasarca. She appears to be markedly swollen. She will need diuresis. Place the patient on Lasix 20 mg intravenous for now q.12 hours. Cardiology and Pulmonary on the case. We will follow orders. Check laboratory studies daily. will start zoroxylin 5 mg po and lasix drip 10 mg per hour, discussed with / Zoila may need dialysis if she doesn't respond to diuresis 2. Chronic hypercapnic respiratory failure. Continue with vent support per Pulmonary. tach collar to be checked by Dr. Day to 8 lithuanian if needed for better inhalation 3. History of anemia and appears to be stable. Continue monitoring CBC daily. 4. Pulmonary hypertension. Continue with Eliquis 2.5 mg twice a day and medications per Pulmonary and Cardiology. 5. Chronic kidney disease. We will monitor BUN and creatinine. Gentle diuresis for now. Nephrology has been consulted. Consider further workup including renal ultrasound. see above 6. DVT prophylaxis. The patient is on Eliquis. The patient is Full Code. patient is severely volume overloaded will transfer to ICU for closer monitoring., ABG chest xray and daily weights discussed at [facility] with nursing staff and consultants Subjective Date patient seen: Nov 13, 2016 Cardiovascular: Reports: no symptoms, chest pain, edema, irregular heart rate, lightheadedness, palpitations, syncope, other Respiratory: Reports: no symptoms, cough, orthopnea, shortness of breath, SOB with excertion, SOB at rest, sputum, stridor, wheezing, other Allergies: Coded Allergies: AMOXICILLIN (Verified Allergy, Mild, RASH, 09/30/16) PENICILLINS (Unverified Allergy, Unknown, 09/30/16) Objective Last 24 Hour Vital Signs Date Time Temp Pulse Resp B/P (MAP) Pulse Ox O2 Delivery O2 Flow Rate FiO2 11/13/16 21:21 99 16 50 11/13/16 20:00 50 11/13/16 20:00 100 11/13/16 20:00 97.5 100 20 90/43 Room Air 100 11/13/16 19:01 98 17 50 11/13/16 17:52 91 20 50 11/13/16 16:00 97.2 94 20 110/66 99 Mechanical Ventilator 50 11/13/16 16:00 95 11/13/16 16:00 50 11/13/16 15:47 86 16 50 11/13/16 15:00 50 11/13/16 13:20 83 19 30 11/13/16 12:00 97.5 94 19 103/67 91 Mechanical Ventilator 30 11/13/16 12:00 74 11/13/16 12:00 30 11/13/16 11:42 87 17 30 11/13/16 09:58 84 17 30 11/13/16 08:00 97.7 82 21 134/74 96 Mechanical Ventilator 30 11/13/16 08:00 30 11/13/16 08:00 78 11/13/16 07:25 71 16 30 11/13/16 05:28 76 28 30 11/13/16 04:00 30 11/13/16 04:00 70 11/13/16 04:00 97.3 84 19 108/61 93 Mechanical Ventilator 30 11/13/16 02:39 81 16 30 11/13/16 01:45 76 16 30 11/13/16 00:00 97.2 78 19 107/70 94 Mechanical Ventilator 30 11/12/16 23:30 68 11/12/16 22:48 75 17 30 Intake and Output 11/13/16 11/14/16 19:00 07:00 Intake Total 910 ml Output Total 300 ml Balance 610 ml Intake Oral 860 ml IV Total 50 ml Output Urine Total 300 ml Laboratory Tests 11/13/16 04:15: White Blood Count 5.7, Red Blood Count 3.00L, Hemoglobin 8.6L, Hematocrit 28.3L , Mean Corpuscular Volume 94, Mean Corpuscular Hemoglobin 28.7, Mean Corpuscular Hemoglobin Concent 30.4L, Red Cell Distribution Width 16.0H, Platelet Count 200, Mean Platelet Volume 5.3L, Neutrophils (%) (Auto) 67.0, Lymphocytes (%) (Auto) 14.5L, Monocytes (%) (Auto) 9.7, Eosinophils (%) (Auto) 7.8H, Basophils (%) (Auto) 1.0, Sodium Level 143, Potassium Level 4.4, Chloride Level 103, Carbon Dioxide Level 28, Anion Gap 12, Blood Urea Nitrogen 71H, Creatinine 3.1H, Estimat Glomerular Filtration Rate , Glucose Level 138H, Calcium Level 9.0, Phosphorus Level 4.9H, Magnesium Level 1.8, Pro-B-Type Natriuretic Peptide [id number], Random Vancomycin Level 16.7 Height (Feet): 5 Height (Inches): 6.00 Weight (Pounds): 406 General Appearance: no apparent distress, alert, morbidly obese EENT: PERRL/EOMI, pharynx normal Neck: non-tender, supple Cardiovascular: normal rate, regular rhythm, no gallop/murmur, no JVD Respiratory/Chest: respiratory distress, decreased breath sounds Abdomen: non tender, soft, no mass Extremities: swelling Edema: 4+ Arm (L), 4+ Arm (R), 4+ Leg (L), 4+ Leg (R), 4+ Pedal (L), 4+ Pedal ( R), 4+ Generalized Edema: severe edema 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
[2016-11-13] MEDS ORDERED: LORazepam Inj 2mg/ml 1ml IV PRN (23:30)
[2016-11-14] VITALS (26 sets, daily range): BP systolic 69–114; BP diastolic 11–87
[2016-11-14 01:31] LABS: ABG ALLEN TEST POSITIVE; ABG BASE EXCESS 1.3; ABG PCO2 52.7 mmHg (35.0-45.0)
[2016-11-14] MEDS: ceFAZolin 1gm in D5W 55ml IVPB SCH (04:42)
[2016-11-14 05:20] LABS: MEAN CORPUSCULAR HEMOGLOBIN 29.2 PG (27.0-31.0); MEAN CORPUSCULAR VOLUME 94 FL (80-99); MEAN PLATELET VOLUME 5.4 FL (6.5-10.1); PLATELET COUNT 178 K/UL (150-450); RED BLOOD COUNT 2.65 M/UL (4.20-5.40); WHITE BLOOD COUNT 5.5 K/UL (4.8-10.8)
[2016-11-14 05:37] LABS: ANION GAP 14 (5-15); CALCIUM 8.9 mg/dL (8.6-10.2); CARBON DIOXIDE 26 mEQ/L (20-30); CHLORIDE 101 mEQ/L (98-107); CREATININE 3.3 mg/dL (0.5-0.9); HEMOLYSIS 3; MAGNESIUM 1.8 mg/dL (1.7-2.5); PHOSPHORUS 4.8 mg/dL (2.5-4.8); POTASSIUM 4.8 mEQ/L (3.4-4.9); SODIUM 141 mEQ/L (135-145)
[2016-11-14] MEDS ORDERED: LORazepam Inj 2mg/ml 1ml IV PRN (08:00)
[2016-11-14] MEDS ORDERED: Albuterol ud Inhalation HHN PRN (08:00)
[2016-11-14] MEDS ORDERED: Albuterol/Ipratropium 3ml neb HHN PRN (08:00)
--- NOTE | 2016-11-14 08:04 | Infectious Diseases Prog Note ---
Assessment/Plan Assessment/Plan A. Cellulitis of legs & right arm VDRF COPD CKD Anemia Morbid obesity Diastolic CHF P: Continue Ancef Subjective ROS Limited/Unobtainable: Yes Musculoskeletal: Reports: pain, other - in legs, right arm Allergies: Coded Allergies: AMOXICILLIN (Verified Allergy, Mild, RASH, 09/30/16) PENICILLINS (Unverified Allergy, Unknown, 09/30/16) Objective Vital Signs Last 24 Hour Vital Signs Date Time Temp Pulse Resp B/P (MAP) Pulse Ox O2 Delivery O2 Flow Rate FiO2 11/14/16 07:00 82 20 83/41 95 Mechanical Ventilator 40 11/14/16 06:52 83 20 40 11/14/16 06:00 75 20 75/46 100 Mechanical Ventilator 40 11/14/16 05:07 83 20 40 11/14/16 05:00 70 20 81/49 99 Mechanical Ventilator 40 11/14/16 04:00 70 11/14/16 04:00 98.8 89 20 82/44 100 Mechanical Ventilator 40 11/14/16 03:00 89 20 82/44 100 Mechanical Ventilator 40 11/14/16 02:55 99 20 40 11/14/16 02:00 40 11/14/16 02:00 88 20 79/41 100 Mechanical Ventilator 60 11/14/16 01:49 60 11/14/16 01:30 96 20 90/49 100 Mechanical Ventilator 100 11/14/16 01:11 99 20 50 11/14/16 01:00 98 20 88/59 100 Mechanical Ventilator 100 11/14/16 00:30 92 20 84/37 100 Mechanical Ventilator 100 11/14/16 00:00 100 11/14/16 00:00 100 11/14/16 00:00 98.4 100 20 114/87 100 Mechanical Ventilator 100 11/13/16 23:39 99 20 50 11/13/16 23:00 98.3 100 20 86/44 98 Mechanical Ventilator 100 11/13/16 21:21 99 16 50 11/13/16 20:00 50 11/13/16 20:00 100 11/13/16 20:00 97.5 100 20 90/43 Room Air 100 11/13/16 19:01 98 17 50 11/13/16 17:52 91 20 50 11/13/16 16:00 97.2 94 20 110/66 99 Mechanical Ventilator 50 11/13/16 16:00 95 11/13/16 16:00 50 11/13/16 15:47 86 16 50 11/13/16 15:00 50 11/13/16 13:20 83 19 30 11/13/16 12:00 97.5 94 19 103/67 91 Mechanical Ventilator 30 11/13/16 12:00 74 11/13/16 12:00 30 11/13/16 11:42 87 17 30 11/13/16 09:58 84 17 30 11/13/16 08:00 97.7 82 21 134/74 96 Mechanical Ventilator 30 11/13/16 08:00 30 11/13/16 08:00 78 Height (Feet): 5 Height (Inches): 6.00 Weight (Pounds): 407 General Appearance: no acute distress HEENT: status post trach Respiratory/Chest: decreased breath sounds, other - on ventilator, endotracheal tube in tracheostomy site Cardiovascular: normal rate Abdomen: soft, non tender, other - GT feeding Extremities: other - generalized edema, erythema of legs , R upper arm Skin: ulcers Neurologic/Psychiatric: alert, responsive Microbiology Date/Time Source Procedure Growth Status 11/11/16 21:15 Blood Blood Culture - Preliminary NO GROWTH AFTER 48 HOURS Resulted 11/11/16 21:00 Blood Blood Culture - Preliminary NO GROWTH AFTER 48 HOURS Resulted 11/12/16 02:50 Nasal Nares MRSA Culture - Final NO METHICILLIN RESISTANT STAPH AUREUS... Complete 11/12/16 18:30 Urine,Clean Catch Urine Culture - Preliminary NO GROWTH Resulted Laboratory Tests Test 11/13/16 23:30 11/14/16 03:55 Arterial Blood pH 7.337 (7.350-7.450) Arterial Blood Partial Pressure CO2 52.7 mmHg (35.0-45.0) H Arterial Blood Partial Pressure O2 522.1 mmHg (75.0-100.0) H Arterial Blood HCO3 27.6 mmol/L (22.0-26.0) H Arterial Blood Oxygen Saturation 99.5 % (92.0-98.0) H Arterial Blood Base Excess 1.3 Mike Test Positive White Blood Count 5.5 K/UL (4.8-10.8) Red Blood Count 2.65 M/UL (4.20-5.40) L Hemoglobin 7.7 G/DL (12.0-16.0) L Hematocrit 24.9 % (37.0-47.0) L Mean Corpuscular Volume 94 FL (80-99) Mean Corpuscular Hemoglobin 29.2 PG (27.0-31.0) Mean Corpuscular Hemoglobin Concent 31.0 G/DL (32.0-36.0) L Red Cell Distribution Width 16.0 % (11.6-14.8) H Platelet Count 178 K/UL (150-450) Mean Platelet Volume 5.4 FL (6.5-10.1) L Neutrophils (%) (Auto) % (45.0-75.0) Lymphocytes (%) (Auto) % (20.0-45.0) Monocytes (%) (Auto) % (1.0-10.0) Eosinophils (%) (Auto) % (0.0-3.0) Basophils (%) (Auto) % (0.0-2.0) Neutrophils % (Manual) Pending Lymphocytes % (Manual) Pending Platelet Estimate Pending Platelet Morphology Pending Sodium Level 141 mEQ/L (135-145) Potassium Level 4.8 mEQ/L (3.4-4.9) Chloride Level 101 mEQ/L (98-107) Carbon Dioxide Level 26 mEQ/L (20-30) Anion Gap 14 (5-15) Blood Urea Nitrogen 62 mg/dL (7-23) H Creatinine 3.3 mg/dL (0.5-0.9) H Estimat Glomerular Filtration Rate mL/min (>60) Glucose Level 113 mg/dL (74-106) H Calcium Level 8.9 mg/dL (8.6-10.2) Phosphorus Level 4.8 mg/dL (2.5-4.8) Magnesium Level 1.8 mg/dL (1.7-2.5) Pro-B-Type Natriuretic Peptide 04113 pg/mL (0-450) H Current Medications Medications (Trade) Dose Ordered Sig/Kalyn Route PRN Reason Start Time Stop Time Status Last Admin Dose Admin Acetaminophen (Tylenol) 650 mg Q4H PRN ORAL Mild Pain/Temp > 100.5 11/14/16 08:00 12/12/16 07:59 Albuterol Sulfate (Proventil) 2.5 mg Q6H PRN HHN Shortness of Breath 11/14/16 08:00 11/19/16 07:59 Albuterol/ Ipratropium (DuoNeb 0.5-3(2.5)mg/3ml) 3 ml Q6H PRN HHN Shortness of Breath 11/14/16 08:00 11/19/16 07:59 Apixaban (Eliquis) 2.5 mg BID ORAL 11/14/16 09:00 12/12/16 08:59 Calcitriol (Rocatrol) 0.25 mcg DAILY ORAL 11/14/16 09:00 12/12/16 08:59 Calcium Carbonate (Os-Mark) 500 mg BID ORAL 11/14/16 09:00 12/12/16 08:59 Cefazolin Sodium 1 gm/Dextrose 55 ml @ 110 mls/hr Q12HR@0500,1700 IVPB 11/14/16 17:00 11/20/16 16:59 Cyanocobalamin (Vitamin B-12) 3,000 mcg DAILY ORAL 11/14/16 09:00 12/12/16 08:59 Docusate Sodium (Colace) 100 mg TWICE A DAY ORAL 11/14/16 09:00 12/12/16 08:59 Folic Acid (Folate) 1 mg DAILY ORAL 11/14/16 09:00 12/12/16 08:59 Furosemide (Lasix) 20 mg EVERY 12 HOURS IV 11/14/16 09:00 12/12/16 08:59 UNV Furosemide 100 mg/ Dextrose 100 ml @ 10 mls/hr Q10H IV 11/14/16 07:00 12/13/16 22:14 Gabapentin (Neurontin) 600 mg BID ORAL 11/14/16 09:00 12/14/16 08:59 Letrozole (Femara) 2.5 mg DAILY ORAL 11/14/16 09:00 11/17/16 08:59 Lorazepam (Ativan 2mg/ml 1ml) 2 mg Q2H PRN IV For Anxiety 11/14/16 08:00 11/21/16 07:59 Morphine Sulfate (Morphine Sulfate) 2 mg Q4H PRN IVP Severe Pain (Pain Scale 7-10) 11/14/16 08:00 11/19/16 11:59 Pantoprazole (Protonix) 40 mg DAILY IVP 11/14/16 09:00 12/12/16 08:59 Polyethylene Glycol (Miralax) 17 gm DAILY ORAL 11/14/16 09:00 12/12/16 08:59 Pravastatin Sodium (Pravachol) 20 mg BEDTIME ORAL 11/14/16 21:00 12/12/16 20:59 Sevelamer Carbonate (Renvela) 800 mg THREE TIMES A DAY ORAL 11/14/16 09:00 12/12/16 08:59 Sildenafil Citrate (Revatio) 20 mg THREE TIMES A DAY ORAL 11/14/16 09:00 12/12/16 08:59 CARY ESTES Nov 14, 2016 08:04
[2016-11-14] MEDS: Eliquis 2.5mg tablet ORAL SCH ×2 (08:24→17:33)
[2016-11-14] MEDS: Docusate 100mg cap ORAL SCH ×2 (08:24→17:33)
[2016-11-14] MEDS: Revatio 20mg tab ORAL SCH ×3 (08:25→17:33)
[2016-11-14] MEDS: Calcitriol 0.25mcg Cap ORAL SCH (08:25)
[2016-11-14] MEDS: Vitamin B-12 500mcg tab ORAL SCH (08:25)
[2016-11-14] MEDS: Miralax 17gm pkt ORAL SCH (08:25)
--- NOTE | 2016-11-14 09:00 | Diagnostic Imaging Report ---
Indication: Endotracheal tube readjustment Technique: XRAY CHEST 1 V Comparison: 11/13/16 Findings: Endotracheal tube tip is approximately 1 cm above the trever. The heart and lungs are grossly stable. Osseous structures are grossly stable. Impression: Endotracheal tube tip 1 cm above the trever. Otherwise stable chest.
--- NOTE | 2016-11-14 09:01 | Diagnostic Imaging Report ---
Indication: Endotracheal tube placement. Technique: XRAY CHEST 1 V Comparison: Examination from the same day at 2318 hrs. Findings: Endotracheal tube tip is at the level of the trever. There is improved aeration of the left lung. Cardiac silhouette is prominent. Interstitial edema/infiltrates are noted. There is lung base atelectasis. Impression: Endotracheal tube at the level the trever with improved aeration of the left lung.
--- NOTE | 2016-11-14 09:02 | Diagnostic Imaging Report ---
Indication: Status post intubation Technique: XRAY CHEST 1 V Comparison: 11/11/16 Findings: Endotracheal tube is in the right mainstem bronchus. There is near complete opacification of the left hemithorax. Interstitial opacities of the right lung are again seen. Osseous structures are grossly stable. Impression: Right mainstem bronchus intubation with near complete opacification of the left hemithorax.
[2016-11-14] MEDS: Pantoprazole Inj IVP SCH (09:07)
--- NOTE | 2016-11-14 10:12 | General Progress Note ---
Assessment/Plan Status Narrative low BP Low H&H anasarca Assessment/Plan Cellulitis BLE and R arm- in the setting of chronic leg edema- r/o DVT Anasarca/ bilateral leg lymphedema CKD- and acute renal failure - Cr 3.1 unchanged since last admission- Acute respiratory failure s/p Trach Obese COPD , CHF, Diastolic MINA UTI Anemia GI Bleed, GI bleeding At Fib Pulm HTN h/o Low B12 24 H urine collection Monitor renal parameters- avoid nephrotoxics- pulmonary support- transfuse as needed Subjective Allergies: Coded Allergies: AMOXICILLIN (Verified Allergy, Mild, RASH, 09/30/16) PENICILLINS (Unverified Allergy, Unknown, 09/30/16) Objective Last 24 Hour Vital Signs Date Time Temp Pulse Resp B/P (MAP) Pulse Ox O2 Delivery O2 Flow Rate FiO2 11/14/16 10:00 72 19 88/19 100 Mechanical Ventilator 40 11/14/16 09:25 20 40 11/14/16 09:00 73 20 69/38 100 Mechanical Ventilator 40 11/14/16 08:00 73 11/14/16 08:00 40 11/14/16 08:00 99.0 75 20 83/41 100 Mechanical Ventilator 40 11/14/16 07:00 82 20 83/41 95 Mechanical Ventilator 40 11/14/16 06:52 83 20 40 11/14/16 06:00 75 20 75/46 100 Mechanical Ventilator 40 11/14/16 05:07 83 20 40 11/14/16 05:00 70 20 81/49 99 Mechanical Ventilator 40 11/14/16 04:00 70 11/14/16 04:00 98.8 89 20 82/44 100 Mechanical Ventilator 40 11/14/16 03:00 89 20 82/44 100 Mechanical Ventilator 40 11/14/16 02:55 99 20 40 11/14/16 02:00 40 11/14/16 02:00 88 20 79/41 100 Mechanical Ventilator 60 11/14/16 01:49 60 11/14/16 01:30 96 20 90/49 100 Mechanical Ventilator 100 11/14/16 01:11 99 20 50 11/14/16 01:00 98 20 88/59 100 Mechanical Ventilator 100 11/14/16 00:30 92 20 84/37 100 Mechanical Ventilator 100 11/14/16 00:00 100 11/14/16 00:00 100 11/14/16 00:00 98.4 100 20 114/87 100 Mechanical Ventilator 100 11/13/16 23:39 99 20 50 11/13/16 23:00 98.3 100 20 86/44 98 Mechanical Ventilator 100 11/13/16 21:21 99 16 50 11/13/16 20:00 50 11/13/16 20:00 100 11/13/16 20:00 97.5 100 20 90/43 Room Air 100 11/13/16 19:01 98 17 50 11/13/16 17:52 91 20 50 11/13/16 16:00 97.2 94 20 110/66 99 Mechanical Ventilator 50 11/13/16 16:00 95 11/13/16 16:00 50 11/13/16 15:47 86 16 50 11/13/16 15:00 50 11/13/16 13:20 83 19 30 11/13/16 12:00 97.5 94 19 103/67 91 Mechanical Ventilator 30 11/13/16 12:00 74 11/13/16 12:00 30 11/13/16 11:42 87 17 30 Intake and Output 11/14/16 11/15/16 19:00 07:00 Intake Total 5 ml Output Total 100 ml Balance -95 ml IV Total 5 ml Output Urine Total 100 ml Laboratory Tests 11/13/16 23:30: Arterial Blood pH 7.337L, Arterial Blood Partial Pressure CO2 52.7H, Arterial Blood Partial Pressure O2 522.1H, Arterial Blood HCO3 27.6H, Arterial Blood Oxygen Saturation 99.5H, Arterial Blood Base Excess 1.3, Mike Test Positive 11/14/16 03:55: White Blood Count 5.5, Red Blood Count 2.65L, Hemoglobin 7.7L, Hematocrit 24.9L , Mean Corpuscular Volume 94, Mean Corpuscular Hemoglobin 29.2, Mean Corpuscular Hemoglobin Concent 31.0L, Red Cell Distribution Width 16.0H, Platelet Count 178, Mean Platelet Volume 5.4L, Neutrophils (%) (Auto) , Lymphocytes (%) (Auto) , Monocytes (%) (Auto) , Eosinophils (%) (Auto) , Basophils (%) (Auto) , Neutrophils % (Manual) [Pending], Lymphocytes % (Manual) [Pending], Platelet Estimate [Pending], Platelet Morphology [Pending], Sodium Level 141, Potassium Level 4.8, Chloride Level 101, Carbon Dioxide Level 26, Anion Gap 14, Blood Urea Nitrogen 62H, Creatinine 3.3H, Estimat Glomerular Filtration Rate , Glucose Level 113H, Calcium Level 8.9, Phosphorus Level 4.8, Magnesium Level 1.8, Pro-B-Type Natriuretic Peptide 39315D Height (Feet): 5 Height (Inches): 6.00 Weight (Pounds): 407 COURTNEY LOPEZ Nov 14, 2016 10:12
[2016-11-14 10:27] LABS: ANISOCYTOSIS 1+; BAND NEUTROPHILS % (MANUAL) 0 % (0-8); BASOPHILS % (MANUAL) 1 % (0-2); EOSINOPHILS % (MANUAL) 5 % (0-3); HYPOCHROMASIA 3+; LYMPHOCYTES % (MANUAL) 14 % (20-45); NEUTROPHILS % (MANUAL) 72 % (45-75); NUCLEATED RED BLOOD CELLS 1 /100 WBC; PLATELET ESTIMATE ADEQUATE; PLATELET MORPHOLOGY NORMAL; TOTAL CELLS COUNTED 100
--- NOTE | 2016-11-14 10:43 | Pulmonolgy Critical Care Note ---
Critical Care - Asmt/Plan Problems: (1) Acute and chronic respiratory failure (2) Anasarca (3) ATN (acute tubular necrosis) (4) Atrial fibrillation (5) Morbid obesity (6) Pickwickian syndrome Respiratory: monitor respiratory rate, adjust FIO2, CXR, other - ENT to see the pt Cardiac: continue to monitor HR/BP Renal: F/U I&O, keep IV fluid Infectious Disease: check cultures Gastrointestinal: continue feedings/current rate Endocrine: monitor blood sugar, check TSH, continue sliding scale insulin Hematologic: monitor H/H, transfuse if hgb<8.5 Neurologic: PRN Ativan, keep patient comfortable Affect: PRN ativan Prophylaxis: Protonix Notes Reviewed: equipment operation instructor 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: nurses, consultants, bottle caserhims manager - Objective Last 24 Hour Vital Signs Date Time Temp Pulse Resp B/P (MAP) Pulse Ox O2 Delivery O2 Flow Rate FiO2 11/14/16 10:00 72 19 88/19 100 Mechanical Ventilator 40 11/14/16 09:25 20 40 11/14/16 09:00 73 20 69/38 100 Mechanical Ventilator 40 11/14/16 08:00 73 11/14/16 08:00 40 11/14/16 08:00 99.0 75 20 83/41 100 Mechanical Ventilator 40 11/14/16 07:00 82 20 83/41 95 Mechanical Ventilator 40 11/14/16 06:52 83 20 40 11/14/16 06:00 75 20 75/46 100 Mechanical Ventilator 40 11/14/16 05:07 83 20 40 11/14/16 05:00 70 20 81/49 99 Mechanical Ventilator 40 11/14/16 04:00 70 11/14/16 04:00 98.8 89 20 82/44 100 Mechanical Ventilator 40 11/14/16 03:00 89 20 82/44 100 Mechanical Ventilator 40 11/14/16 02:55 99 20 40 11/14/16 02:00 40 11/14/16 02:00 88 20 79/41 100 Mechanical Ventilator 60 11/14/16 01:49 60 11/14/16 01:30 96 20 90/49 100 Mechanical Ventilator 100 11/14/16 01:11 99 20 50 11/14/16 01:00 98 20 88/59 100 Mechanical Ventilator 100 11/14/16 00:30 92 20 84/37 100 Mechanical Ventilator 100 11/14/16 00:00 100 11/14/16 00:00 100 11/14/16 00:00 98.4 100 20 114/87 100 Mechanical Ventilator 100 11/13/16 23:39 99 20 50 11/13/16 23:00 98.3 100 20 86/44 98 Mechanical Ventilator 100 11/13/16 21:21 99 16 50 11/13/16 20:00 50 11/13/16 20:00 100 11/13/16 20:00 97.5 100 20 90/43 Room Air 100 11/13/16 19:01 98 17 50 11/13/16 17:52 91 20 50 11/13/16 16:00 97.2 94 20 110/66 99 Mechanical Ventilator 50 11/13/16 16:00 95 11/13/16 16:00 50 11/13/16 15:47 86 16 50 11/13/16 15:00 50 11/13/16 13:20 83 19 30 11/13/16 12:00 97.5 94 19 103/67 91 Mechanical Ventilator 30 11/13/16 12:00 74 11/13/16 12:00 30 11/13/16 11:42 87 17 30 Status: awake Condition: critical HEENT: atraumatic Neck: full ROM Lungs: chest wall tender Heart: HR/BP unstable Abdomen: soft, active bowel sounds Extremities: no C/C/E Decubiti: location Micro: Microbiology Date/Time Source Procedure Growth Status 11/11/16 21:15 Blood Blood Culture - Preliminary NO GROWTH AFTER 48 HOURS Resulted 11/11/16 21:00 Blood Blood Culture - Preliminary NO GROWTH AFTER 48 HOURS Resulted 11/12/16 02:50 Nasal Nares MRSA Culture - Final NO METHICILLIN RESISTANT STAPH AUREUS... Complete 11/12/16 18:30 Urine,Clean Catch Urine Culture - Preliminary NO GROWTH AFTER 24 HOURS Resulted 11/12/16 02:50 Rectum VRE Culture - Final Enterococcus Faecium - Vre Complete Critical Care - Subjective ROS Limited/Unobtainable: Yes ICU Day: 2 Interval Events: pt was transferred to ICU because of dyspnea, The balloon for trach was ruptured and ET tube size of 6 was inserted through trach site. EKG Rhythm: Sinus Rhythm FI02: 40 Vent Support Breath Rate: 20 Vent Support Mode: AC Vent Tidal Volume: 600 Sputum Amount: Moderate PEEP: 5.0 PIP: 57 Drips: lasix drip I&O: Intake and Output 11/14/16 11/15/16 19:00 07:00 Intake Total 5 ml Output Total 100 ml Balance -95 ml IV Total 5 ml Output Urine Total 100 ml CXR: no change ET-Tube: 6.0 Labs: Laboratory Tests Test 11/13/16 23:30 11/14/16 03:55 Arterial Blood pH 7.337 (7.350-7.450) Arterial Blood Partial Pressure CO2 52.7 mmHg (35.0-45.0) H Arterial Blood Partial Pressure O2 522.1 mmHg (75.0-100.0) H Arterial Blood HCO3 27.6 mmol/L (22.0-26.0) H Arterial Blood Oxygen Saturation 99.5 % (92.0-98.0) H Arterial Blood Base Excess 1.3 Mike Test Positive White Blood Count 5.5 K/UL (4.8-10.8) Red Blood Count 2.65 M/UL (4.20-5.40) L Hemoglobin 7.7 G/DL (12.0-16.0) L Hematocrit 24.9 % (37.0-47.0) L Mean Corpuscular Volume 94 FL (80-99) Mean Corpuscular Hemoglobin 29.2 PG (27.0-31.0) Mean Corpuscular Hemoglobin Concent 31.0 G/DL (32.0-36.0) L Red Cell Distribution Width 16.0 % (11.6-14.8) H Platelet Count 178 K/UL (150-450) Mean Platelet Volume 5.4 FL (6.5-10.1) L Neutrophils (%) (Auto) % (45.0-75.0) Lymphocytes (%) (Auto) % (20.0-45.0) Monocytes (%) (Auto) % (1.0-10.0) Eosinophils (%) (Auto) % (0.0-3.0) Basophils (%) (Auto) % (0.0-2.0) Differential Total Cells Counted 100 Neutrophils % (Manual) 72 % (45-75) Lymphocytes % (Manual) 14 % (20-45) L Monocytes % (Manual) 8 % (1-10) Eosinophils % (Manual) 5 % (0-3) H Basophils % (Manual) 1 % (0-2) Band Neutrophils 0 % (0-8) Nucleated Red Blood Cells 1 /100 WBC Platelet Estimate Adequate Platelet Morphology Normal Hypochromasia 3+ Anisocytosis 1+ Sodium Level 141 mEQ/L (135-145) Potassium Level 4.8 mEQ/L (3.4-4.9) Chloride Level 101 mEQ/L (98-107) Carbon Dioxide Level 26 mEQ/L (20-30) Anion Gap 14 (5-15) Blood Urea Nitrogen 62 mg/dL (7-23) H Creatinine 3.3 mg/dL (0.5-0.9) H Estimat Glomerular Filtration Rate mL/min (>60) Glucose Level 113 mg/dL (74-106) H Calcium Level 8.9 mg/dL (8.6-10.2) Phosphorus Level 4.8 mg/dL (2.5-4.8) Magnesium Level 1.8 mg/dL (1.7-2.5) Pro-B-Type Natriuretic Peptide 34288 pg/mL (0-450) H ARASH MIRANDA Nov 14, 2016 10:43
[2016-11-14 11:32] LABS: CREATININE 3.6 MG/DL (0.55-1.00)
--- NOTE | 2016-11-14 12:06 | General Progress Note ---
Assessment/Plan Assessment/Plan late entry # Anemia 2/2 chronic disease --> watch counts --> no iron or b12 deficiency --> transfuse if symptomatic or if hgb below 7 Subjective Date patient seen: Nov 13, 2016 Constitutional: Reports: weakness HEENT: Reports: no symptoms Cardiovascular: Reports: no symptoms Respiratory: Reports: no symptoms Gastrointestinal/Abdominal: Reports: no symptoms Genitourinary: Reports: no symptoms Neurologic/Psychiatric: Reports: no symptoms Endocrine: Reports: no symptoms Hematologic/Lymphatic: Reports: anemia Allergies: Coded Allergies: AMOXICILLIN (Verified Allergy, Mild, RASH, 09/30/16) PENICILLINS (Unverified Allergy, Unknown, 09/30/16) Objective Last 24 Hour Vital Signs Date Time Temp Pulse Resp B/P (MAP) Pulse Ox O2 Delivery O2 Flow Rate FiO2 11/14/16 11:29 20 40 11/14/16 11:00 73 20 93/72 96 Mechanical Ventilator 40 11/14/16 10:00 72 19 88/19 100 Mechanical Ventilator 40 11/14/16 09:25 20 40 11/14/16 09:00 73 20 69/38 100 Mechanical Ventilator 40 11/14/16 08:00 73 11/14/16 08:00 40 11/14/16 08:00 99.0 75 20 83/41 100 Mechanical Ventilator 40 11/14/16 07:00 82 20 83/41 95 Mechanical Ventilator 40 11/14/16 06:52 83 20 40 11/14/16 06:00 75 20 75/46 100 Mechanical Ventilator 40 11/14/16 05:07 83 20 40 11/14/16 05:00 70 20 81/49 99 Mechanical Ventilator 40 11/14/16 04:00 70 11/14/16 04:00 98.8 89 20 82/44 100 Mechanical Ventilator 40 11/14/16 03:00 89 20 82/44 100 Mechanical Ventilator 40 11/14/16 02:55 99 20 40 11/14/16 02:00 40 11/14/16 02:00 88 20 79/41 100 Mechanical Ventilator 60 11/14/16 01:49 60 11/14/16 01:30 96 20 90/49 100 Mechanical Ventilator 100 11/14/16 01:11 99 20 50 11/14/16 01:00 98 20 88/59 100 Mechanical Ventilator 100 11/14/16 00:30 92 20 84/37 100 Mechanical Ventilator 100 11/14/16 00:00 100 11/14/16 00:00 100 11/14/16 00:00 98.4 100 20 114/87 100 Mechanical Ventilator 100 11/13/16 23:39 99 20 50 11/13/16 23:00 98.3 100 20 86/44 98 Mechanical Ventilator 100 11/13/16 21:21 99 16 50 11/13/16 20:00 50 11/13/16 20:00 100 11/13/16 20:00 97.5 100 20 90/43 Room Air 100 11/13/16 19:01 98 17 50 11/13/16 17:52 91 20 50 11/13/16 16:00 97.2 94 20 110/66 99 Mechanical Ventilator 50 11/13/16 16:00 95 11/13/16 16:00 50 11/13/16 15:47 86 16 50 11/13/16 15:00 50 11/13/16 13:20 83 19 30 11/13/16 12:00 97.5 94 19 103/67 91 Mechanical Ventilator 30 11/13/16 12:00 74 11/13/16 12:00 30 Intake and Output 11/14/16 11/15/16 19:00 07:00 Intake Total 15 ml Output Total 130 ml Balance -115 ml IV Total 15 ml Output Urine Total 130 ml Laboratory Tests 11/13/16 23:30: Arterial Blood pH 7.337L, Arterial Blood Partial Pressure CO2 52.7H, Arterial Blood Partial Pressure O2 522.1H, Arterial Blood HCO3 27.6H, Arterial Blood Oxygen Saturation 99.5H, Arterial Blood Base Excess 1.3, Mike Test Positive 11/14/16 03:55: White Blood Count 5.5, Red Blood Count 2.65L, Hemoglobin 7.7L, Hematocrit 24.9L , Mean Corpuscular Volume 94, Mean Corpuscular Hemoglobin 29.2, Mean Corpuscular Hemoglobin Concent 31.0L, Red Cell Distribution Width 16.0H, Platelet Count 178, Mean Platelet Volume 5.4L, Neutrophils (%) (Auto) , Lymphocytes (%) (Auto) , Monocytes (%) (Auto) , Eosinophils (%) (Auto) , Basophils (%) (Auto) , Differential Total Cells Counted 100, Neutrophils % ( Manual) 72, Lymphocytes % (Manual) 14L, Monocytes % (Manual) 8, Eosinophils % ( Manual) 5H, Basophils % (Manual) 1, Band Neutrophils 0, Nucleated Red Blood Cells 1, Platelet Estimate Adequate, Platelet Morphology Normal, Hypochromasia 3 +, Anisocytosis 1+, Sodium Level 141, Potassium Level 4.8, Chloride Level 101, Carbon Dioxide Level 26, Anion Gap 14, Blood Urea Nitrogen 62H, Creatinine 3.3H , Estimat Glomerular Filtration Rate , Glucose Level 113H, Calcium Level 8.9, Phosphorus Level 4.8, Magnesium Level 1.8, Pro-B-Type Natriuretic Peptide [id number] 11/14/16 11:00: Creatinine 3.6H, Estimat Glomerular Filtration Rate , Uric Acid [Pending], Total Bilirubin [Pending], Direct Bilirubin [Pending], Aspartate Amino Transf ( AST/SGOT) [Pending], Alanine Aminotransferase (ALT/SGPT) [Pending], Alkaline Phosphatase [Pending], Total Protein [Pending], Albumin [Pending] Height (Feet): 5 Height (Inches): 6.00 Weight (Pounds): 407 General Appearance: no apparent distress EENT: normal ENT inspection Neck: supple Cardiovascular: normal rate Respiratory/Chest: no accessory muscle use Abdomen: no organomegaly Extremities: non-tender Edema: moderate edema Serafin Haines Nov 14, 2016 12:06
[2016-11-14 13:07] LABS: ALANINE AMINOTRANSFERASE < 6 U/L (12-78)
[2016-11-14 13:16] LABS: ASPARTATE AMINO TRANSFERASE 13 U/L (15-37); BILIRUBIN,DIRECT 0.1 MG/DL (0.0-0.3); TOTAL PROTEIN 6.6 G/DL (6.4-8.2)
[2016-11-14] MEDS ORDERED: Tubing IV Secondary IV ONE ×2 (16:14→16:15)
[2016-11-14] MEDS ORDERED: NS 275ml ONE (16:14)
[2016-11-14] MEDS: ceFAZolin sod 1 GM in D5W 55 ML IVPB SCH (17:22)
--- NOTE | 2016-11-14 22:12 | General Progress Note ---
Assessment/Plan Assessment/Plan This is a 76-year-old, morbidly obese female, admitted with anasarca and cellulitis of the lower leg. The patient was admitted to the directr observation unit on the monitor with the following medical problems. now transfered to icu as of 11-14-16 1. Anasarca. She appears to be markedly swollen. She will need diuresis. Place the patient on Lasix 20 mg intravenous for now q.12 hours. Cardiology and Pulmonary on the case. We will follow orders. Check laboratory studies daily. conitnue lasix drip 10 mg per hour, discussed with / Zoila may need dialysis if she doesn't respond to diuresis, 24 hour urine collection ordered 2. Chronic hypercapnic respiratory failure. Continue with vent support per Pulmonary. 3 anemia. s./p transfusion of PRBC Continue monitoring CBC daily. 4. Pulmonary hypertension. Continue with Eliquis 2.5 mg twice a day and medications per Pulmonary and Cardiology. hold #Eloquis if bleeding suspected 5. Chronic kidney disease. We will monitor BUN and creatinine. Gentle diuresis for now. Nephrology has been consulted. further workup per nephrology 6. DVT prophylaxis. The patient is on Eliquis. The patient is Full Code. patient is severely volume overloaded will transfer to ICU for closer monitoring., ABG orn, chest xray and daily weights discussed at [facility] with icu nursing staff and consultants Subjective Date patient seen: Nov 14, 2016 Respiratory: Reports: shortness of breath Allergies: Coded Allergies: AMOXICILLIN (Verified Allergy, Mild, RASH, 09/30/16) PENICILLINS (Unverified Allergy, Unknown, 09/30/16) Objective Last 24 Hour Vital Signs Date Time Temp Pulse Resp B/P (MAP) Pulse Ox O2 Delivery O2 Flow Rate FiO2 11/14/16 21:28 80 11/14/16 21:00 65 22 79/42 100 Mechanical Ventilator 40 11/14/16 20:00 98.0 64 20 80/48 98 Mechanical Ventilator 40 11/14/16 20:00 40 11/14/16 19:30 20 40 11/14/16 19:00 72 22 92/29 95 Mechanical Ventilator 40 11/14/16 18:00 73 22 74/23 96 Mechanical Ventilator 40 11/14/16 17:11 20 40 11/14/16 17:00 73 22 101/37 99 Mechanical Ventilator 40 11/14/16 16:00 40 11/14/16 16:00 73 11/14/16 16:00 99.0 72 20 92/41 99 Mechanical Ventilator 40 11/14/16 15:12 20 40 11/14/16 15:00 73 22 88/37 100 Mechanical Ventilator 40 11/14/16 14:00 73 20 90/63 96 Mechanical Ventilator 40 11/14/16 13:00 73 20 70/51 96 Mechanical Ventilator 40 11/14/16 12:37 20 40 11/14/16 12:00 99.0 75 20 74/11 100 Mechanical Ventilator 40 11/14/16 12:00 40 11/14/16 12:00 73 11/14/16 11:29 20 40 11/14/16 11:00 73 20 93/72 96 Mechanical Ventilator 40 11/14/16 10:00 72 19 88/19 100 Mechanical Ventilator 40 11/14/16 09:25 20 40 11/14/16 09:00 73 20 69/38 100 Mechanical Ventilator 40 11/14/16 08:00 73 11/14/16 08:00 40 11/14/16 08:00 99.0 75 20 83/41 100 Mechanical Ventilator 40 11/14/16 07:00 82 20 83/41 95 Mechanical Ventilator 40 11/14/16 06:52 83 20 40 11/14/16 06:00 75 20 75/46 100 Mechanical Ventilator 40 11/14/16 05:07 83 20 40 11/14/16 05:00 70 20 81/49 99 Mechanical Ventilator 40 11/14/16 04:00 70 11/14/16 04:00 98.8 89 20 82/44 100 Mechanical Ventilator 40 11/14/16 03:00 89 20 82/44 100 Mechanical Ventilator 40 11/14/16 02:55 99 20 40 11/14/16 02:00 40 11/14/16 02:00 88 20 79/41 100 Mechanical Ventilator 60 11/14/16 01:49 60 11/14/16 01:30 96 20 90/49 100 Mechanical Ventilator 100 11/14/16 01:11 99 20 50 11/14/16 01:00 98 20 88/59 100 Mechanical Ventilator 100 11/14/16 00:30 92 20 84/37 100 Mechanical Ventilator 100 11/14/16 00:00 100 11/14/16 00:00 100 11/14/16 00:00 98.4 100 20 114/87 100 Mechanical Ventilator 100 11/13/16 23:39 99 20 50 11/13/16 23:00 98.3 100 20 86/44 98 Mechanical Ventilator 100 Intake and Output 11/14/16 11/15/16 19:00 07:00 Intake Total 205 ml 20 ml Output Total 330 ml 55 ml Balance -125 ml -35 ml IV Total 205 ml 20 ml Output Urine Total 330 ml 55 ml Laboratory Tests 11/13/16 23:30: Arterial Blood pH 7.337L, Arterial Blood Partial Pressure CO2 52.7H, Arterial Blood Partial Pressure O2 522.1H, Arterial Blood HCO3 27.6H, Arterial Blood Oxygen Saturation 99.5H, Arterial Blood Base Excess 1.3, Mike Test Positive 11/14/16 03:55: White Blood Count 5.5, Red Blood Count 2.65L, Hemoglobin 7.7L, Hematocrit 24.9L , Mean Corpuscular Volume 94, Mean Corpuscular Hemoglobin 29.2, Mean Corpuscular Hemoglobin Concent 31.0L, Red Cell Distribution Width 16.0H, Platelet Count 178, Mean Platelet Volume 5.4L, Neutrophils (%) (Auto) , Lymphocytes (%) (Auto) , Monocytes (%) (Auto) , Eosinophils (%) (Auto) , Basophils (%) (Auto) , Differential Total Cells Counted 100, Neutrophils % ( Manual) 72, Lymphocytes % (Manual) 14L, Monocytes % (Manual) 8, Eosinophils % ( Manual) 5H, Basophils % (Manual) 1, Band Neutrophils 0, Nucleated Red Blood Cells 1, Platelet Estimate Adequate, Platelet Morphology Normal, Hypochromasia 3 +, Anisocytosis 1+, Sodium Level 141, Potassium Level 4.8, Chloride Level 101, Carbon Dioxide Level 26, Anion Gap 14, Blood Urea Nitrogen 62H, Creatinine 3.3H , Estimat Glomerular Filtration Rate , Glucose Level 113H, Calcium Level 8.9, Phosphorus Level 4.8, Magnesium Level 1.8, Pro-B-Type Natriuretic Peptide 15685C 11/14/16 11:00: Creatinine 3.6H, Estimat Glomerular Filtration Rate , Uric Acid 10.0H, Total Bilirubin 0.4, Direct Bilirubin 0.1, Aspartate Amino Transf (AST/SGOT) 13L, Alanine Aminotransferase (ALT/SGPT) < 6L, Alkaline Phosphatase 60, Total Protein 6.6, Albumin 2.2L Height (Feet): 5 Height (Inches): 6.00 Weight (Pounds): 407 General Appearance: moderate distress EENT: PERRL/EOMI, pharynx normal Neck: non-tender, supple Cardiovascular: normal rate, regular rhythm, no gallop/murmur, no JVD Respiratory/Chest: decreased breath sounds Abdomen: non tender, soft, no mass Extremities: swelling Edema: 4+ Arm (L), 4+ Arm (R), 4+ Leg (L), 4+ Leg (R), 4+ Pedal (L), 4+ Pedal ( R), 4+ Generalized Edema: severe edema Neurologic: project management it specialist II-XII grossly normal, oriented x 3, responsive Skin: rash Lymphatic: normal anterior cervical (L), normal anterior cervical (R), normal posterior cervical (L), normal posterior cervical (R), normal submandibular (L) , normal submandibular (R), normal supraclavicular (L), normal supraclavicular ( R), normal axillary (L), normal axillary (R), normal inguinal (L), normal inguinal (R), normal other Manny Nolan MD Nov 14, 2016 22:12
[2016-11-15] VITALS (23 sets, daily range): BP systolic 72–110; BP diastolic 26–90
[2016-11-15] MEDS: ceFAZolin sod 1 GM in D5W 55 ML IVPB SCH (05:00)
[2016-11-15 05:35] LABS: BASOPHILS % (AUTO) 1.1 % (0.0-2.0); EOSINOPHILS % (AUTO) 6.3 % (0.0-3.0); MEAN CORPUSCULAR HGB CONC 32.5 G/DL (32.0-36.0); MEAN CORPUSCULAR VOLUME 93 FL (80-99); MEAN PLATELET VOLUME 5.3 FL (6.5-10.1); MONOCYTES % (AUTO) 8.9 % (1.0-10.0); NEUTROPHILS % (AUTO) 65.6 % (45.0-75.0); PLATELET COUNT 177 K/UL (150-450); RED BLOOD COUNT 3.11 M/UL (4.20-5.40); RED CELL DISTRIBUTION WIDTH 15.4 % (11.6-14.8)
[2016-11-15 06:17] LABS: ALANINE AMINOTRANSFERASE < 6 U/L (12-78); ALBUMIN/GLOBULIN RATIO 0.5 (1.0-2.7); ANION GAP 8 (5-15); ASPARTATE AMINO TRANSFERASE 14 U/L (15-37); CALCIUM 8.5 MG/DL (8.5-10.1); CARBON DIOXIDE 27 MMOL/L (21-32); CHLORIDE 101 MMOL/L (98-107); CREATININE 3.5 MG/DL (0.55-1.30); MAGNESIUM 1.7 MG/DL (1.8-2.4); PHOSPHORUS 4.2 MG/DL (2.5-4.9); POTASSIUM 4.2 MMOL/L (3.5-5.1); SODIUM 136 MMOL/L (136-145); TOTAL PROTEIN 6.5 G/DL (6.4-8.2)
[2016-11-15] MEDS: Revatio 20mg tab ORAL SCH ×3 (09:00→18:00)
[2016-11-15] MEDS: Calcitriol 0.25mcg Cap ORAL SCH (09:00)
[2016-11-15] MEDS: Vitamin B-12 500mcg tab ORAL SCH (09:00)
[2016-11-15] MEDS: Docusate 100mg cap ORAL SCH ×2 (09:00→18:00)
[2016-11-15] MEDS: Miralax 17gm pkt ORAL SCH (09:00)
[2016-11-15] MEDS: Eliquis 2.5mg tablet ORAL SCH ×2 (09:00→18:00)
--- NOTE | 2016-11-15 09:00 | Consultation ---
DATE OF CONSULTATION: 11/12/2016 HEMATOLOGY/ONCOLOGY CONSULTATION NOTE CONSULTING PHYSICIAN: Serafin Haines MD REQUESTING PHYSICIAN: Elidia Rene MD REASON FOR CONSULTATION: Evaluation of anemia. IDENTIFICATION DATA: Dear Dr. Rene, The patient is a pleasant 76-year-old female. She has a past medical history which is significant for multiple medical issues such as respiratory failure, vent-dependant trach, and anemia, has been presenting to the hospital with edema of the lower extremities over the past several weeks. She noted a which were red and painful, had a duplex, which was performed today and is within normal limits. Patency of left popliteal arteries were noted. These were all in the lower extremities. is within normal limits as well. This was arterial duplex and Hematology Service was again consulted for evaluation of anemia. PAST MEDICAL HISTORY: As noted in the medical , respiratory failure, obstructive sleep apnea, morbid obesity, and UTI. PAST SURGICAL HISTORY: Vent dependance and G-tube placement. MEDICATIONS: Apixaban, letrozole, , Colace, vitamin B12, and . ALLERGIES: Amoxicillin and penicillin. REVIEW OF SYSTEMS: A 12-point review of systems is otherwise negative. PHYSICAL EXAMINATION: VITAL SIGNS: Reviewed. GENERAL: The patient is in no acute distress. PULMONARY: Decreased breath sounds. CARDIOVASCULAR: Regular rate. No S3 or S4. ABDOMEN: Soft, nontender, and nondistended. EXTREMITIES: 1+ edema. LABORATORY DATA: Creatinine of 3.1. INR 1.1 and prothrombin time 11.9. Hemoglobin 8.6 and platelet count . ASSESSMENT: 1. Anemia secondary to chronic disease. Continue to closely monitor. Anemia workup has been ordered. Hemoglobin goal is above 7. 2. Anemia of kidney disease. Creatinine of 3.1. Continue to closely monitor. Consider use of Epogen. 3. History of breast cancer, currently on letrozole. 4. Chronic ventilator dependant tracheostomy, status post tracheostomy. 5. Permanent atrial fibrillation. She is on apixaban. 6. Chronic lymphedema of the bilateral lower extremities. Continue to monitor. 7. Congestive heart failure. I appreciate the consultation. Serafin Haines M.D. DR: SINTIA JOB#: [id number] CC:
--- NOTE | 2016-11-15 09:32 | Infectious Diseases Prog Note ---
Assessment/Plan Assessment/Plan Abx: IV Vancomycin 11/11-11/12 IV Cefepime 11/11-11/12 IV Ancef 11/12- Flagyl x1 11/11 Assesment: Cellulitis BLE and R arm- in the setting of chronic leg edema- Limited Venous duplex BLE (non diagnostic), no DVT R arm -Bcx NTD Anasarca/ bilateral leg lymphedema -CXR: Limited evaluation. Suspected interstitial edema Afebrile, no leukocytosis REnal insufficiency COPD Diastolic CHF chronic resp failure, vent/trach dependent, Gtbue, pAfib, pleural effusion, MINA , CKD, GERD, morbid obesity, [facility] resident Plan: -Continue Ancef for cellulitis (abx #06/20) -expect slow improvement given significant swelling; won't change abx unless febrile, worsening leukocytosis or worsening cellulitis -extremity elevation -edema management -f/u cx -Monitor CBC/BMP, temperatures Thank you for this consultation. Will continue to follow along with you. 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 RN. Subjective Allergies: Coded Allergies: AMOXICILLIN (Verified Allergy, Mild, RASH, 09/30/16) PENICILLINS (Unverified Allergy, Unknown, 09/30/16) Subjective transferred to ICU 11/14 due to malfunction trach, ETT place on trach site in the interim afebrile hypotensive Bcx NTD Objective Vital Signs Last 24 Hour Vital Signs Date Time Temp Pulse Resp B/P (MAP) Pulse Ox O2 Delivery O2 Flow Rate FiO2 11/15/16 08:56 20 40 11/15/16 07:05 20 40 11/15/16 07:00 65 20 72/46 96 Mechanical Ventilator 40 11/15/16 06:00 73 22 77/44 99 Mechanical Ventilator 40 11/15/16 05:10 20 40 11/15/16 05:00 72 22 95/58 99 Mechanical Ventilator 40 11/15/16 04:00 40 11/15/16 04:00 97.9 90 22 87/58 99 Mechanical Ventilator 40 11/15/16 03:30 20 40 11/15/16 03:17 90 11/15/16 03:00 74 22 85/54 98 Mechanical Ventilator 40 11/15/16 02:00 74 22 97/58 97 Mechanical Ventilator 40 11/15/16 01:15 18 40 11/15/16 01:00 70 20 84/26 100 Mechanical Ventilator 40 11/15/16 00:00 98.3 63 20 103/47 99 Mechanical Ventilator 40 11/15/16 00:00 40 11/14/16 23:30 20 40 11/14/16 23:02 70 11/14/16 23:00 64 22 80/39 99 Mechanical Ventilator 40 11/14/16 22:00 65 22 93/64 99 Mechanical Ventilator 40 11/14/16 21:30 20 40 11/14/16 21:28 80 11/14/16 21:18 107 20 Mechanical Ventilator 40 11/14/16 21:00 65 22 79/42 100 Mechanical Ventilator 40 11/14/16 20:00 98.0 64 20 80/48 98 Mechanical Ventilator 40 11/14/16 20:00 40 11/14/16 19:30 20 40 11/14/16 19:00 72 22 92/29 95 Mechanical Ventilator 40 11/14/16 18:00 73 22 74/23 96 Mechanical Ventilator 40 11/14/16 17:11 20 40 11/14/16 17:00 73 22 101/37 99 Mechanical Ventilator 40 11/14/16 16:00 40 11/14/16 16:00 73 11/14/16 16:00 99.0 72 20 92/41 99 Mechanical Ventilator 40 11/14/16 15:12 20 40 11/14/16 15:00 73 22 88/37 100 Mechanical Ventilator 40 11/14/16 14:00 73 20 90/63 96 Mechanical Ventilator 40 11/14/16 13:00 73 20 70/51 96 Mechanical Ventilator 40 11/14/16 12:37 20 40 11/14/16 12:00 99.0 75 20 74/11 100 Mechanical Ventilator 40 11/14/16 12:00 40 11/14/16 12:00 73 11/14/16 11:29 20 40 11/14/16 11:00 73 20 93/72 96 Mechanical Ventilator 40 11/14/16 10:00 72 19 88/19 100 Mechanical Ventilator 40 Height (Feet): 5 Height (Inches): 6.00 Weight (Pounds): 408 Objective General Appearance: WD/WN HEENT: trach in palce, Respiratory/Chest: chest wall non-tender, lungs clear Cardiovascular/Chest: normal peripheral pulses, normal rate Abdomen: normal bowel sounds, non tender Ext: anasarca; R > L LE swelling, both legs with blanching erythema anteriorly from distal leg up to below knee, +warmth, non TTP, no drainage R arm swelling, erythematous,. background changes of chronic lymphedema on b/l legs Microbiology Date/Time Source Procedure Growth Status 11/12/16 18:30 Urine,Clean Catch Urine Culture - Final NO GROWTH AFTER 48 HOURS Complete Laboratory Tests Test 11/14/16 11:00 11/15/16 04:40 Creatinine 3.6 MG/DL (0.55-1.00) H 3.5 MG/DL (0.55-1.30) H Estimat Glomerular Filtration Rate mL/min (>60) mL/min (>60) Uric Acid 10.0 MG/DL (2.6-7.2) H Total Bilirubin 0.4 MG/DL (0.2-1.0) 0.8 MG/DL (0.2-1.0) Direct Bilirubin 0.1 MG/DL (0.0-0.3) Aspartate Amino Transf (AST/SGOT) 13 U/L (15-37) L 14 U/L (15-37) L Alanine Aminotransferase (ALT/SGPT) < 6 U/L (12-78) L < 6 U/L (12-78) L Alkaline Phosphatase 60 U/L (46-116) 60 U/L (46-116) Total Protein 6.6 G/DL (6.4-8.2) 6.5 G/DL (6.4-8.2) Albumin 2.2 G/DL (3.4-5.0) L 2.2 G/DL (3.4-5.0) L White Blood Count 5.0 K/UL (4.8-10.8) Red Blood Count 3.11 M/UL (4.20-5.40) L Hemoglobin 9.3 G/DL (12.0-16.0) L Hematocrit 28.8 % (37.0-47.0) L Mean Corpuscular Volume 93 FL (80-99) Mean Corpuscular Hemoglobin 30.0 PG (27.0-31.0) Mean Corpuscular Hemoglobin Concent 32.5 G/DL (32.0-36.0) Red Cell Distribution Width 15.4 % (11.6-14.8) H Platelet Count 177 K/UL (150-450) Mean Platelet Volume 5.3 FL (6.5-10.1) L Neutrophils (%) (Auto) 65.6 % (45.0-75.0) Lymphocytes (%) (Auto) 18.0 % (20.0-45.0) L Monocytes (%) (Auto) 8.9 % (1.0-10.0) Eosinophils (%) (Auto) 6.3 % (0.0-3.0) H Basophils (%) (Auto) 1.1 % (0.0-2.0) Sodium Level 136 MMOL/L (136-145) Potassium Level 4.2 MMOL/L (3.5-5.1) Chloride Level 101 MMOL/L (98-107) Carbon Dioxide Level 27 MMOL/L (21-32) Anion Gap 8 (5-15) Blood Urea Nitrogen 60 mg/dL (7-18) H Glucose Level 81 MG/DL (74-106) Calcium Level 8.5 MG/DL (8.5-10.1) Phosphorus Level 4.2 MG/DL (2.5-4.9) Magnesium Level 1.7 MG/DL (1.8-2.4) L Pro-B-Type Natriuretic Peptide 54630 (0-125) H Globulin 4.3 g/dL Albumin/Globulin Ratio 0.5 (1.0-2.7) L Current Medications Medications (Trade) Dose Ordered Sig/Kalyn Route PRN Reason Start Time Stop Time Status Last Admin Dose Admin Acetaminophen (Tylenol) 650 mg Q4H PRN ORAL Mild Pain/Temp > 100.5 11/14/16 08:00 12/12/16 07:59 Albuterol Sulfate (Proventil) 2.5 mg Q6H PRN HHN Shortness of Breath 11/14/16 08:00 11/19/16 07:59 Albuterol/ Ipratropium (DuoNeb 0.5-3(2.5)mg/3ml) 3 ml Q6H PRN HHN Shortness of Breath 11/14/16 08:00 11/19/16 07:59 Apixaban (Eliquis) 2.5 mg BID ORAL 11/14/16 09:00 12/12/16 08:59 Calcitriol (Rocatrol) 0.25 mcg DAILY ORAL 11/14/16 09:00 12/12/16 08:59 Calcium Carbonate (Os-Mark) 500 mg BID ORAL 11/14/16 09:00 12/12/16 08:59 Cefazolin Sodium 1 gm/Dextrose 55 ml @ 110 mls/hr Q12HR@0500,1700 IVPB 11/14/16 17:00 11/20/16 16:59 11/15/16 05:00 Cyanocobalamin (Vitamin B-12) 3,000 mcg DAILY ORAL 11/14/16 09:00 12/12/16 08:59 Docusate Sodium (Colace) 100 mg TWICE A DAY ORAL 11/14/16 09:00 12/12/16 08:59 Folic Acid (Folate) 1 mg DAILY ORAL 11/14/16 09:00 12/12/16 08:59 Furosemide 100 mg/ Dextrose 100 ml @ 10 mls/hr Q10H IV 11/14/16 07:00 12/13/16 22:14 11/15/16 02:40 Gabapentin (Neurontin) 600 mg BID ORAL 11/14/16 09:00 12/14/16 08:59 Letrozole (Femara) 2.5 mg DAILY ORAL 11/14/16 09:00 11/17/16 08:59 Lorazepam (Ativan 2mg/ml 1ml) 2 mg Q2H PRN IV For Anxiety 11/14/16 08:00 11/21/16 07:59 Morphine Sulfate (Morphine Sulfate) 2 mg Q4H PRN IVP Severe Pain (Pain Scale 7-10) 11/14/16 08:00 11/19/16 11:59 Pantoprazole (Protonix) 40 mg DAILY IVP 11/14/16 09:00 12/12/16 08:59 11/14/16 09:07 Polyethylene Glycol (Miralax) 17 gm DAILY ORAL 11/14/16 09:00 12/12/16 08:59 Pravastatin Sodium (Pravachol) 20 mg BEDTIME ORAL 11/14/16 21:00 12/12/16 20:59 Sevelamer Carbonate (Renvela) 800 mg THREE TIMES A DAY ORAL 11/14/16 09:00 12/12/16 08:59 Sildenafil Citrate (Revatio) 20 mg THREE TIMES A DAY ORAL 11/14/16 09:00 12/12/16 08:59 Danielle Guo M.D. Nov 15, 2016 09:32
[2016-11-15] MEDS: Pantoprazole Inj IVP SCH (09:58)
[2016-11-15 10:18] LABS: ABG PCO2 47.3 mmHg (35.0-45.0)
[2016-11-15 10:19] LABS: ABG ALLEN TEST POSITIVE; ABG BASE EXCESS 2.1
--- NOTE | 2016-11-15 10:21 | Diagnostic Imaging Report ---
Indication: Dyspnea Comparison: 11/14/16 A single view chest radiograph was obtained. Findings: Prominent pulmonary vascularity and heart size demonstrated. Interstitial edema is present. Endotracheal tube is in good position Impression: CHF/interstitial edema
--- NOTE | 2016-11-15 10:45 | Pulmonolgy Critical Care Note ---
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: nurses Critical Care - Objective Last 24 Hour Vital Signs Date Time Temp Pulse Resp B/P (MAP) Pulse Ox O2 Delivery O2 Flow Rate FiO2 11/15/16 08:56 20 40 11/15/16 07:05 20 40 11/15/16 07:00 65 20 72/46 96 Mechanical Ventilator 40 11/15/16 06:00 73 22 77/44 99 Mechanical Ventilator 40 11/15/16 05:10 20 40 11/15/16 05:00 72 22 95/58 99 Mechanical Ventilator 40 11/15/16 04:00 40 11/15/16 04:00 97.9 90 22 87/58 99 Mechanical Ventilator 40 11/15/16 03:30 20 40 11/15/16 03:17 90 11/15/16 03:00 74 22 85/54 98 Mechanical Ventilator 40 11/15/16 02:00 74 22 97/58 97 Mechanical Ventilator 40 11/15/16 01:15 18 40 11/15/16 01:00 70 20 84/26 100 Mechanical Ventilator 40 11/15/16 00:00 98.3 63 20 103/47 99 Mechanical Ventilator 40 11/15/16 00:00 40 11/14/16 23:30 20 40 11/14/16 23:02 70 11/14/16 23:00 64 22 80/39 99 Mechanical Ventilator 40 11/14/16 22:00 65 22 93/64 99 Mechanical Ventilator 40 11/14/16 21:30 20 40 11/14/16 21:28 80 11/14/16 21:18 107 20 Mechanical Ventilator 40 11/14/16 21:00 65 22 79/42 100 Mechanical Ventilator 40 11/14/16 20:00 98.0 64 20 80/48 98 Mechanical Ventilator 40 11/14/16 20:00 40 11/14/16 19:30 20 40 11/14/16 19:00 72 22 92/29 95 Mechanical Ventilator 40 11/14/16 18:00 73 22 74/23 96 Mechanical Ventilator 40 11/14/16 17:11 20 40 11/14/16 17:00 73 22 101/37 99 Mechanical Ventilator 40 11/14/16 16:00 40 11/14/16 16:00 73 11/14/16 16:00 99.0 72 20 92/41 99 Mechanical Ventilator 40 11/14/16 15:12 20 40 11/14/16 15:00 73 22 88/37 100 Mechanical Ventilator 40 11/14/16 14:00 73 20 90/63 96 Mechanical Ventilator 40 11/14/16 13:00 73 20 70/51 96 Mechanical Ventilator 40 11/14/16 12:37 20 40 11/14/16 12:00 99.0 75 20 74/11 100 Mechanical Ventilator 40 11/14/16 12:00 40 11/14/16 12:00 73 11/14/16 11:29 20 40 11/14/16 11:00 73 20 93/72 96 Mechanical Ventilator 40 Status: somnolent Condition: critical HEENT: atraumatic Neck: full ROM Heart: HR/BP stable, regular Abdomen: soft, feeding tube Extremities: no C/C/E, edema Micro: Microbiology Date/Time Source Procedure Growth Status 11/12/16 18:30 Urine,Clean Catch Urine Culture - Final NO GROWTH AFTER 48 HOURS Complete Critical Care - Subjective ROS Limited/Unobtainable: No ICU Day: 4 Intubation Day: chronic trach Condition: critical EKG Rhythm: Sinus Rhythm FI02: 40 Vent Support Breath Rate: 20 Vent Support Mode: AC Vent Tidal Volume: 600 Sputum Amount: Small PEEP: 5.0 PIP: 64 I&O: Intake and Output 11/15/16 11/16/16 19:00 07:00 Output Total 175 ml Balance -175 ml Output Urine Total 175 ml CXR: no change ET-Tube: 6.0 ET Position: 15 Labs: Laboratory Tests Test 11/14/16 11:00 11/15/16 04:40 11/15/16 10:00 Creatinine 3.6 MG/DL (0.55-1.00) H 3.5 MG/DL (0.55-1.30) H Estimat Glomerular Filtration Rate mL/min (>60) mL/min (>60) Uric Acid 10.0 MG/DL (2.6-7.2) H Total Bilirubin 0.4 MG/DL (0.2-1.0) 0.8 MG/DL (0.2-1.0) Direct Bilirubin 0.1 MG/DL (0.0-0.3) Aspartate Amino Transf (AST/SGOT) 13 U/L (15-37) L 14 U/L (15-37) L Alanine Aminotransferase (ALT/SGPT) < 6 U/L (12-78) L < 6 U/L (12-78) L Alkaline Phosphatase 60 U/L (46-116) 60 U/L (46-116) Total Protein 6.6 G/DL (6.4-8.2) 6.5 G/DL (6.4-8.2) Albumin 2.2 G/DL (3.4-5.0) L 2.2 G/DL (3.4-5.0) L White Blood Count 5.0 K/UL (4.8-10.8) Red Blood Count 3.11 M/UL (4.20-5.40) L Hemoglobin 9.3 G/DL (12.0-16.0) L Hematocrit 28.8 % (37.0-47.0) L Mean Corpuscular Volume 93 FL (80-99) Mean Corpuscular Hemoglobin 30.0 PG (27.0-31.0) Mean Corpuscular Hemoglobin Concent 32.5 G/DL (32.0-36.0) Red Cell Distribution Width 15.4 % (11.6-14.8) H Platelet Count 177 K/UL (150-450) Mean Platelet Volume 5.3 FL (6.5-10.1) L Neutrophils (%) (Auto) 65.6 % (45.0-75.0) Lymphocytes (%) (Auto) 18.0 % (20.0-45.0) L Monocytes (%) (Auto) 8.9 % (1.0-10.0) Eosinophils (%) (Auto) 6.3 % (0.0-3.0) H Basophils (%) (Auto) 1.1 % (0.0-2.0) Sodium Level 136 MMOL/L (136-145) Potassium Level 4.2 MMOL/L (3.5-5.1) Chloride Level 101 MMOL/L (98-107) Carbon Dioxide Level 27 MMOL/L (21-32) Anion Gap 8 (5-15) Blood Urea Nitrogen 60 mg/dL (7-18) H Glucose Level 81 MG/DL (74-106) Calcium Level 8.5 MG/DL (8.5-10.1) Phosphorus Level 4.2 MG/DL (2.5-4.9) Magnesium Level 1.7 MG/DL (1.8-2.4) L Pro-B-Type Natriuretic Peptide 34380 (0-125) H Globulin 4.3 g/dL Albumin/Globulin Ratio 0.5 (1.0-2.7) L Arterial Blood pH 7.384 (7.350-7.450) Arterial Blood Partial Pressure CO2 47.3 mmHg (35.0-45.0) H Arterial Blood Partial Pressure O2 110.5 mmHg (75.0-100.0) H Arterial Blood HCO3 27.6 mmol/L (22.0-26.0) H Arterial Blood Oxygen Saturation 97.5 % (92.0-98.0) Arterial Blood Base Excess 2.1 Mike Test Positive ARSAH MIRANDA Nov 15, 2016 10:45
--- NOTE | 2016-11-15 11:01 | Diagnostic Imaging Report ---
APPROVED REPORT CPT Code: 77643 Present Symptoms Upper Extremity Pain: BILATERAL UPPER EXTREMITY: Imaging reveals patency of the internal jugular, subclavian, axillary and brachial veins. The cephalic and basilic veins are also patent. Doppler indicates normal spontaneous flow within these venous segments, bilaterally.
--- NOTE | 2016-11-15 11:02 | Diagnostic Imaging Report ---
APPROVED REPORT CPT Code: 67357 Present Symptoms Upper Extremity Pain: Right Upper Extremity Edema: Right Shortness of breath Comments: Limited study due to patient's body habitus. RIGHT UPPER EXTREMITY: Venous imaging reveals patency of the internal jugular, subclavian and axillary veins. Doppler indicates normal spontaneous flow within these venous segments. The brachail veins were not visualised due to edema and vessel depth. The cephalic and basilic veins were also not visualised.
--- NOTE | 2016-11-15 11:03 | Diagnostic Imaging Report ---
APPROVED REPORT CPT Code: 34433 Symptoms Comments: Pain and edema Risk Factors Obesity: Comments Technically difficult/limited study due to vessel depth (proximal to-distal thigh area), and patient's inability to tolerate study. BILATERAL: Common femoral artery waveform analysis is within normal limits at rest. Color flow duplex sonography reveals patency of the popliteal arteries, bilaterally. There is no evidence of stenosis or occlusion within these segments. The superficial femoral arteries were not well visualized. The tibioperoneal trunks were not also well visualized. The posterior tibial, and dorsalis pedis arteries are patent. Doppler tibial artery waveform analysis (multiphasic) is within normal limits, bilaterally.
--- NOTE | 2016-11-15 12:39 | Diagnostic Imaging Report ---
Indication: Dyspnea Comparison: 11/14/16 A single view chest radiograph was obtained. Findings: Interstitial edema has improved slightly since the last study. The heart remains enlarged. Central vessels are prominent. Bones are osteopenic. There is a tracheostomy noted in good position. Impression: Mild interstitial edema suspected with some interval improvement since previous day
--- NOTE | 2016-11-15 12:57 | General Progress Note ---
Assessment/Plan Status: unchanged Status Narrative Cr 3.5 Assessment/Plan Cellulitis BLE and R arm- in the setting of chronic leg edema- r/o DVT Anasarca/ bilateral leg lymphedema CKD- and acute renal failure - Cr 3.1 unchanged since last admission- Acute respiratory failure s/p Trach Obese COPD , CHF, Diastolic MNIA UTI Anemia GI Bleed, GI bleeding At Fib Pulm HTN h/o Low B12 24 H urine collection in process Monitor renal parameters- avoid nephrotoxics- pulmonary support- transfuse as needed Subjective ROS Limited/Unobtainable: Yes Allergies: Coded Allergies: AMOXICILLIN (Verified Allergy, Mild, RASH, 09/30/16) PENICILLINS (Unverified Allergy, Unknown, 09/30/16) Objective Last 24 Hour Vital Signs Date Time Temp Pulse Resp B/P (MAP) Pulse Ox O2 Delivery O2 Flow Rate FiO2 11/15/16 11:42 80 11/15/16 11:00 20 40 11/15/16 08:56 20 40 11/15/16 08:00 40 11/15/16 08:00 85 11/15/16 07:05 20 40 11/15/16 07:00 65 20 72/46 96 Mechanical Ventilator 40 11/15/16 06:00 73 22 77/44 99 Mechanical Ventilator 40 11/15/16 05:10 20 40 11/15/16 05:00 72 22 95/58 99 Mechanical Ventilator 40 11/15/16 04:00 40 11/15/16 04:00 97.9 90 22 87/58 99 Mechanical Ventilator 40 11/15/16 03:30 20 40 11/15/16 03:17 90 11/15/16 03:00 74 22 85/54 98 Mechanical Ventilator 40 11/15/16 02:00 74 22 97/58 97 Mechanical Ventilator 40 11/15/16 01:15 18 40 11/15/16 01:00 70 20 84/26 100 Mechanical Ventilator 40 11/15/16 00:00 98.3 63 20 103/47 99 Mechanical Ventilator 40 11/15/16 00:00 40 11/14/16 23:30 20 40 11/14/16 23:02 70 11/14/16 23:00 64 22 80/39 99 Mechanical Ventilator 40 11/14/16 22:00 65 22 93/64 99 Mechanical Ventilator 40 11/14/16 21:30 20 40 11/14/16 21:28 80 11/14/16 21:18 107 20 Mechanical Ventilator 40 11/14/16 21:00 65 22 79/42 100 Mechanical Ventilator 40 11/14/16 20:00 98.0 64 20 80/48 98 Mechanical Ventilator 40 11/14/16 20:00 40 11/14/16 19:30 20 40 11/14/16 19:00 72 22 92/29 95 Mechanical Ventilator 40 11/14/16 18:00 73 22 74/23 96 Mechanical Ventilator 40 11/14/16 17:11 20 40 11/14/16 17:00 73 22 101/37 99 Mechanical Ventilator 40 11/14/16 16:00 40 11/14/16 16:00 73 11/14/16 16:00 99.0 72 20 92/41 99 Mechanical Ventilator 40 11/14/16 15:12 20 40 11/14/16 15:00 73 22 88/37 100 Mechanical Ventilator 40 11/14/16 14:00 73 20 90/63 96 Mechanical Ventilator 40 11/14/16 13:00 73 20 70/51 96 Mechanical Ventilator 40 Intake and Output 11/15/16 11/16/16 19:00 07:00 Intake Total 20 ml Output Total 375 ml Balance -355 ml Other 20 ml Output Urine Total 375 ml Laboratory Tests 11/15/16 04:40: White Blood Count 5.0, Red Blood Count 3.11L, Hemoglobin 9.3L, Hematocrit 28.8L , Mean Corpuscular Volume 93, Mean Corpuscular Hemoglobin 30.0, Mean Corpuscular Hemoglobin Concent 32.5, Red Cell Distribution Width 15.4H, Platelet Count 177, Mean Platelet Volume 5.3L, Neutrophils (%) (Auto) 65.6, Lymphocytes (%) (Auto) 18.0L, Monocytes (%) (Auto) 8.9, Eosinophils (%) (Auto) 6.3H, Basophils (%) (Auto) 1.1, Sodium Level 136, Potassium Level 4.2, Chloride Level 101, Carbon Dioxide Level 27, Anion Gap 8, Blood Urea Nitrogen 60H, Creatinine 3.5H, Estimat Glomerular Filtration Rate , Glucose Level 81, Calcium Level 8.5, Phosphorus Level 4.2, Magnesium Level 1.7L, Total Bilirubin 0.8, Aspartate Amino Transf (AST/SGOT) 14L, Alanine Aminotransferase (ALT/SGPT) < 6L , Alkaline Phosphatase 60, Pro-B-Type Natriuretic Peptide 11723N, Total Protein 6.5, Albumin 2.2L, Globulin 4.3, Albumin/Globulin Ratio 0.5L 11/15/16 10:00: Arterial Blood pH 7.384, Arterial Blood Partial Pressure CO2 47.3H, Arterial Blood Partial Pressure O2 110.5H, Arterial Blood HCO3 27.6H, Arterial Blood Oxygen Saturation 97.5, Arterial Blood Base Excess 2.1, Mike Test Positive Height (Feet): 5 Height (Inches): 6.00 Weight (Pounds): 408 General Appearance: other - on vent Respiratory/Chest: decreased breath sounds Abdomen: other - obese Edema: 3+ Arm (L), 3+ Arm (R), 3+ Leg (L), 3+ Leg (R), 3+ Pedal (L), 3+ Pedal ( R), 3+ Generalized Objective BP low , but doubtful measurement COURTNEY LOPEZ Nov 15, 2016 12:57
[2016-11-15] MEDS ORDERED: NS 275ml ONE (14:13)
[2016-11-15] MEDS ORDERED: Tubing IV Blood Pump IV ONE (14:13)
[2016-11-15 14:39] LABS: CREATININE 3.5 MG/DL (0.55-1.30)
--- NOTE | 2016-11-15 15:34 | Wound Care Consultation ---
Wound Assessment Wound Assessment #1: Wound Number: 1 Wound Present on Admission: Yes New Wound: No Status Change of Wound: No Wound Location Body Site Modif: right, upper Wound Location Body Site: arm - inner Wound Type: blister - ruptured Joya Test: Does not Joya Wound Thickness: Partial Thickness Wound Length: 2.0 Wound Width: 2.0 Wound Depth: 0.1 Percent of Wound [place]/Red: 100 Wound Drainage Description: Serosanguineous Wound Drainage Amount: Moderate Tissue Surrounding Wound: Denuded Wound General Appearance: Reddened, Draining Wound Assessment #2: Wound Number: 2 Wound Present on Admission: Yes New Wound: No Wound Location Body Site Modif: left Wound Location Body Site: breast fold Wound Type: chemical burn Joya Test: Does not Joya Wound Thickness: Partial Thickness Wound Length: 2.0 Wound Width: 2.0 Wound Depth: 0.1 Percent of Wound [place]/Red: 100 Wound Drainage Description: Serosanguineous Wound Drainage Amount: Scant Wound Drainage Odor: None/Absent Tissue Surrounding Wound: Erythemic Wound General Appearance: Reddened Wound Assessment #3: Wound Number: 3 Wound Present on Admission: Yes New Wound: No Status Change of Wound: No Wound Location Body Site Modif: left Wound Location Body Site: abdominal fold Wound Type: chemical burn - with erosion Joya Test: Does not Joya Wound Thickness: Partial Thickness Percent of Wound [place]/Red: 100 Wound Drainage Description: Serosanguineous Wound Drainage Amount: Moderate Wound Drainage Odor: None/Absent Tissue Surrounding Wound: Macerated Wound General Appearance: Reddened, Draining Wound Assessment #4: Wound Number: 4 Wound Present on Admission: Yes New Wound: No Status Change of Wound: No Wound Location Body Site Modif: left, upper, anterior Wound Location Body Site: thigh Wound Type: blister - ruptured Joya Test: Does not Joya Wound Thickness: Partial Thickness Wound Length: 3.0 Wound Width: 5.0 Wound Depth: 0.1 Percent of Wound [place]/Red: 100 Wound Drainage Description: Serosanguineous Wound Drainage Amount: Scant Wound Drainage Odor: None/Absent Tissue Surrounding Wound: Erythemic Wound General Appearance: Reddened, Draining Wound Assessment #5: Wound Number: 5 Wound Present on Admission: Yes New Wound: No Status Change of Wound: No Wound Location Body Site: perianal - perineal area Wound Type: chemical burn - mascerated Joya Test: Does not Joya Percent of Wound [place]/Red: 100 Wound Drainage Amount: None Wound Drainage Odor: None/Absent Tissue Surrounding Wound: Macerated - erythemic Wound General Appearance: Reddened Wound Assessment #6: Wound Number: 6 Wound Present on Admission: Yes New Wound: No Status Change of Wound: No Wound Location Body Site Modif: left, lower Wound Location Body Site: leg Wound Type: other - cellulitis Joya Test: Does not Joya Percent of Wound [place]/Red: 100 Wound Drainage Amount: None Wound Drainage Odor: None/Absent Tissue Surrounding Wound: Erythemic Wound General Appearance: Reddened Wound Assessment #7: Wound Number: 7 Wound Present on Admission: Yes New Wound: No Status Change of Wound: No Wound Location Body Site Modif: right, lower Wound Location Body Site: leg Wound Type: other - cellulitis Joya Test: Does not Joya Percent of Wound [place]/Red: 100 Wound Drainage Amount: None Wound Drainage Odor: None/Absent Tissue Surrounding Wound: Erythemic Wound General Appearance: Reddened Wound Assessment #8: Wound Number: 8 Wound Present on Admission: Yes New Wound: No Status Change of Wound: No Wound Location Body Site: sacral - scattered redness Wound Type: chemical burn - moist /mascerated Percent of Wound [place]/Red: 100 Wound Drainage Amount: None Wound Drainage Odor: None/Absent Tissue Surrounding Wound: Erythemic Wound Comment #1 Right upper inner arm ruptured blister. #2 Left underbreast fold chemical burn with erosion. #3 Left abdominal fold chemical burn with erosion. #4 Left upper anterior thigh ruptured blister. #5 Perineal area extending to perianal chemical burn. #6 Sacral scattered redness chemical burn. #7 Left lower leg cellulitis. #8 Right lower leg cellulitis. Recommendation. - Local wound care as ordered. - Turn and reposition. - Keep clean and dry. - Optimize nutrition. - Avoid shear and friction. - Low air loss mattress SPR for skin management. - Assess and notify if any further change of condition to KITA ORTIZ Nov 15, 2016 15:34
[2016-11-15] MEDS: ceFAZolin 2gm/50ml Premix 50 ML IV SCH (17:33)
--- NOTE | 2016-11-15 20:36 | General Progress Note ---
Assessment/Plan Status: unchanged Assessment/Plan This is a 76-year-old, morbidly obese female, admitted with anasarca and cellulitis of the lower leg. The patient was admitted to the directr observation unit on the monitor with the following medical problems. now transfered to icu as of 11-14-16 1. Anasarca. She appears to be markedly swollen. She will need diuresis. Place the patient on Lasix 20 mg intravenous for now q.12 hours. Cardiology and Pulmonary on the case. We will follow orders. Check laboratory studies daily. conitnue lasix drip 10 mg per hour, discussed with / Zoila may need dialysis if she doesn't respond to diuresis, 24 hour urine collection ordered 2. Chronic hypercapnic respiratory failure. Continue with vent support per Pulmonary. 3 anemia. s./p transfusion of PRBC Continue monitoring CBC daily. 4. Pulmonary hypertension. Continue with Eliquis 2.5 mg twice a day and medications per Pulmonary and Cardiology. hold #Eloquis if bleeding suspected 5. Chronic kidney disease. We will monitor BUN and creatinine. Gentle diuresis for now. Nephrology has been consulted. further workup per nephrology. avoid nephrotoxic agents 6. DVT prophylaxis. The patient is on Eliquis. The patient is Full Code. patient is severely volume overloaded will transfer to ICU for closer monitoring., ABG orn, chest xray and daily weights discussed at length with icu nursing staff and consultants Subjective Date patient seen: Nov 15, 2016 Respiratory: Reports: shortness of breath Allergies: Coded Allergies: AMOXICILLIN (Verified Allergy, Mild, RASH, 09/30/16) PENICILLINS (Unverified Allergy, Unknown, 09/30/16) Objective Last 24 Hour Vital Signs Date Time Temp Pulse Resp B/P (MAP) Pulse Ox O2 Delivery O2 Flow Rate FiO2 11/15/16 19:30 24 40 11/15/16 18:00 76 20 86/44 96 Mechanical Ventilator 40 11/15/16 17:23 20 40 11/15/16 17:00 98.6 80 21 104/90 98 Mechanical Ventilator 40 11/15/16 16:00 83 11/15/16 16:00 40 11/15/16 16:00 85 20 101/53 100 Mechanical Ventilator 40 11/15/16 15:00 82 20 105/69 100 Mechanical Ventilator 40 11/15/16 14:57 20 40 11/15/16 14:00 80 20 107/63 98 Mechanical Ventilator 40 11/15/16 13:00 20 40 11/15/16 13:00 78 20 86/42 98 Mechanical Ventilator 40 11/15/16 12:00 98.5 80 20 96/52 100 Mechanical Ventilator 40 11/15/16 12:00 40 11/15/16 11:42 80 11/15/16 11:00 79 20 92/51 98 Mechanical Ventilator 40 11/15/16 11:00 20 40 11/15/16 10:00 83 20 88/59 100 Mechanical Ventilator 40 11/15/16 09:00 75 20 90/75 96 Mechanical Ventilator 40 11/15/16 08:56 20 40 11/15/16 08:00 98.6 82 20 74/44 98 Mechanical Ventilator 40 11/15/16 08:00 40 11/15/16 08:00 85 11/15/16 07:05 20 40 11/15/16 07:00 65 20 72/46 96 Mechanical Ventilator 40 11/15/16 06:00 73 22 77/44 99 Mechanical Ventilator 40 11/15/16 05:10 20 40 11/15/16 05:00 72 22 95/58 99 Mechanical Ventilator 40 11/15/16 04:00 40 11/15/16 04:00 97.9 90 22 87/58 99 Mechanical Ventilator 40 11/15/16 03:30 20 40 11/15/16 03:17 90 11/15/16 03:00 74 22 85/54 98 Mechanical Ventilator 40 11/15/16 02:00 74 22 97/58 97 Mechanical Ventilator 40 11/15/16 01:15 18 40 11/15/16 01:00 70 20 84/26 100 Mechanical Ventilator 40 11/15/16 00:00 98.3 63 20 103/47 99 Mechanical Ventilator 40 11/15/16 00:00 40 11/14/16 23:30 20 40 11/14/16 23:02 70 11/14/16 23:00 64 22 80/39 99 Mechanical Ventilator 40 11/14/16 22:00 65 22 93/64 99 Mechanical Ventilator 40 11/14/16 21:30 20 40 11/14/16 21:28 80 11/14/16 21:18 107 20 Mechanical Ventilator 40 10/8/17 21:00 65 22 79/42 100 Mechanical Ventilator 40 Intake and Output 11/15/16 11/16/16 19:00 07:00 Intake Total 480 ml Output Total 970 ml Balance -490 ml Intake Oral 100 ml IV Total 360 ml Other 20 ml Output Urine Total 970 ml Laboratory Tests 11/15/16 04:40: White Blood Count 5.0, Red Blood Count 3.11L, Hemoglobin 9.3L, Hematocrit 28.8L , Mean Corpuscular Volume 93, Mean Corpuscular Hemoglobin 30.0, Mean Corpuscular Hemoglobin Concent 32.5, Red Cell Distribution Width 15.4H, Platelet Count 177, Mean Platelet Volume 5.3L, Neutrophils (%) (Auto) 65.6, Lymphocytes (%) (Auto) 18.0L, Monocytes (%) (Auto) 8.9, Eosinophils (%) (Auto) 6.3H, Basophils (%) (Auto) 1.1, Sodium Level 136, Potassium Level 4.2, Chloride Level 101, Carbon Dioxide Level 27, Anion Gap 8, Blood Urea Nitrogen 60H, Creatinine 3.5H, Estimat Glomerular Filtration Rate , Glucose Level 81, Calcium Level 8.5, Phosphorus Level 4.2, Magnesium Level 1.7L, Total Bilirubin 0.8, Aspartate Amino Transf (AST/SGOT) 14L, Alanine Aminotransferase (ALT/SGPT) < 6L , Alkaline Phosphatase 60, Pro-B-Type Natriuretic Peptide 03735F, Total Protein 6.5, Albumin 2.2L, Globulin 4.3, Albumin/Globulin Ratio 0.5L 11/15/16 10:00: Arterial Blood pH 7.384, Arterial Blood Partial Pressure CO2 47.3H, Arterial Blood Partial Pressure O2 110.5H, Arterial Blood HCO3 27.6H, Arterial Blood Oxygen Saturation 97.5, Arterial Blood Base Excess 2.1, Mike Test Positive 11/15/16 12:00: Creatinine 3.5H, Estimat Glomerular Filtration Rate Height (Feet): 5 Height (Inches): 6.00 Weight (Pounds): 408 General Appearance: mild distress, morbidly obese EENT: PERRL/EOMI, pharynx normal Neck: non-tender, supple Cardiovascular: normal rate, regular rhythm, no gallop/murmur, no JVD Respiratory/Chest: decreased breath sounds Abdomen: non tender, soft, no mass, distended Extremities: swelling Edema: 4+ Arm (L), 4+ Arm (R), 4+ Leg (L), 4+ Leg (R), 4+ Pedal (L), 4+ Pedal ( R), 4+ Generalized Edema: severe edema Neurologic: news analyst II-XII grossly normal, oriented x 3, responsive Skin: rash Lymphatic: normal anterior cervical (L), normal anterior cervical (R), normal posterior cervical (L), normal posterior cervical (R), normal submandibular (L) , normal submandibular (R), normal supraclavicular (L), normal supraclavicular ( R), normal axillary (L), normal axillary (R), normal inguinal (L), normal inguinal (R), normal other Manny Nolan MD Nov 15, 2016 20:36
--- NOTE | 2016-11-15 22:31 | General Progress Note ---
Assessment/Plan Assessment/Plan ASSESSMENT: 1. Anemia secondary to chronic disease. Continue to closely monitor. Work up reviewed --> s/p transfusion 2. Anemia of kidney disease. 3. History of breast cancer, currently on letrozole. 4. Chronic ventilator dependant tracheostomy, status post tracheostomy. 5. Permanent atrial fibrillation. She is on apixaban. 6. Chronic lymphedema of the bilateral lower extremities. Continue to monitor. 7. Congestive heart failure. Subjective Constitutional: Reports: no symptoms HEENT: Reports: no symptoms Cardiovascular: Reports: no symptoms Respiratory: Reports: no symptoms Gastrointestinal/Abdominal: Reports: no symptoms Genitourinary: Reports: no symptoms Neurologic/Psychiatric: Reports: no symptoms Endocrine: Reports: no symptoms Hematologic/Lymphatic: Reports: anemia Allergies: Coded Allergies: AMOXICILLIN (Verified Allergy, Mild, RASH, 09/30/16) PENICILLINS (Unverified Allergy, Unknown, 09/30/16) Subjective NAD, comfortable Objective Last 24 Hour Vital Signs Date Time Temp Pulse Resp B/P (MAP) Pulse Ox O2 Delivery O2 Flow Rate FiO2 11/15/16 19:30 24 40 11/15/16 18:00 76 20 86/44 96 Mechanical Ventilator 40 11/15/16 17:23 20 40 11/15/16 17:00 98.6 80 21 104/90 98 Mechanical Ventilator 40 11/15/16 16:00 83 11/15/16 16:00 40 11/15/16 16:00 85 20 101/53 100 Mechanical Ventilator 40 11/15/16 15:00 82 20 105/69 100 Mechanical Ventilator 40 11/15/16 14:57 20 40 11/15/16 14:00 80 20 107/63 98 Mechanical Ventilator 40 11/15/16 13:00 20 40 11/15/16 13:00 78 20 86/42 98 Mechanical Ventilator 40 11/15/16 12:00 98.5 80 20 96/52 100 Mechanical Ventilator 40 11/15/16 12:00 40 11/15/16 11:42 80 11/15/16 11:00 79 20 92/51 98 Mechanical Ventilator 40 11/15/16 11:00 20 40 11/15/16 10:00 83 20 88/59 100 Mechanical Ventilator 40 11/15/16 09:00 75 20 90/75 96 Mechanical Ventilator 40 11/15/16 08:56 20 40 11/15/16 08:00 98.6 82 20 74/44 98 Mechanical Ventilator 40 11/15/16 08:00 40 11/15/16 08:00 85 11/15/16 07:05 20 40 11/15/16 07:00 65 20 72/46 96 Mechanical Ventilator 40 11/15/16 06:00 73 22 77/44 99 Mechanical Ventilator 40 11/15/16 05:10 20 40 11/15/16 05:00 72 22 95/58 99 Mechanical Ventilator 40 11/15/16 04:00 40 11/15/16 04:00 97.9 90 22 87/58 99 Mechanical Ventilator 40 11/15/16 03:30 20 40 11/15/16 03:17 90 11/15/16 03:00 74 22 85/54 98 Mechanical Ventilator 40 11/15/16 02:00 74 22 97/58 97 Mechanical Ventilator 40 11/15/16 01:15 18 40 11/15/16 01:00 70 20 84/26 100 Mechanical Ventilator 40 11/15/16 00:00 98.3 63 20 103/47 99 Mechanical Ventilator 40 11/15/16 00:00 40 11/14/16 23:30 20 40 11/14/16 23:02 70 11/14/16 23:00 64 22 80/39 99 Mechanical Ventilator 40 Intake and Output 11/15/16 11/16/16 19:00 07:00 Intake Total 480 ml Output Total 970 ml Balance -490 ml Intake Oral 100 ml IV Total 360 ml Other 20 ml Output Urine Total 970 ml Laboratory Tests 11/15/16 04:40: White Blood Count 5.0, Red Blood Count 3.11L, Hemoglobin 9.3L, Hematocrit 28.8L , Mean Corpuscular Volume 93, Mean Corpuscular Hemoglobin 30.0, Mean Corpuscular Hemoglobin Concent 32.5, Red Cell Distribution Width 15.4H, Platelet Count 177, Mean Platelet Volume 5.3L, Neutrophils (%) (Auto) 65.6, Lymphocytes (%) (Auto) 18.0L, Monocytes (%) (Auto) 8.9, Eosinophils (%) (Auto) 6.3H, Basophils (%) (Auto) 1.1, Sodium Level 136, Potassium Level 4.2, Chloride Level 101, Carbon Dioxide Level 27, Anion Gap 8, Blood Urea Nitrogen 60H, Creatinine 3.5H, Estimat Glomerular Filtration Rate , Glucose Level 81, Calcium Level 8.5, Phosphorus Level 4.2, Magnesium Level 1.7L, Total Bilirubin 0.8, Aspartate Amino Transf (AST/SGOT) 14L, Alanine Aminotransferase (ALT/SGPT) < 6L , Alkaline Phosphatase 60, Pro-B-Type Natriuretic Peptide 37526E, Total Protein 6.5, Albumin 2.2L, Globulin 4.3, Albumin/Globulin Ratio 0.5L 11/15/16 10:00: Arterial Blood pH 7.384, Arterial Blood Partial Pressure CO2 47.3H, Arterial Blood Partial Pressure O2 110.5H, Arterial Blood HCO3 27.6H, Arterial Blood Oxygen Saturation 97.5, Arterial Blood Base Excess 2.1, Mike Test Positive 11/15/16 12:00: Creatinine 3.5H, Estimat Glomerular Filtration Rate Height (Feet): 5 Height (Inches): 6.00 Weight (Pounds): 408 General Appearance: no apparent distress EENT: normal ENT inspection Neck: normal alignment Cardiovascular: normal peripheral pulses Respiratory/Chest: no accessory muscle use Skin: warm/dry Serafin Haines Nov 15, 2016 22:31
[2016-11-16] VITALS (20 sets, daily range): BP systolic 83–117; BP diastolic 42–81
[2016-11-16] MEDS: ceFAZolin 2gm/50ml Premix 50 ML IV SCH ×2 (03:04→15:13)
[2016-11-16 06:27] LABS: BASOPHILS % (AUTO) 1.5 % (0.0-2.0); EOSINOPHILS % (AUTO) 7.3 % (0.0-3.0); LYMPHOCYTES % (AUTO) 21.1 % (20.0-45.0); MEAN CORPUSCULAR HGB CONC 32.7 G/DL (32.0-36.0); MEAN CORPUSCULAR VOLUME 92 FL (80-99); MEAN PLATELET VOLUME 5.2 FL (6.5-10.1); MONOCYTES % (AUTO) 14.5 % (1.0-10.0); NEUTROPHILS % (AUTO) 55.5 % (45.0-75.0); PLATELET COUNT 160 K/UL (150-450); RED BLOOD COUNT 2.88 M/UL (4.20-5.40); RED CELL DISTRIBUTION WIDTH 15.1 % (11.6-14.8); WHITE BLOOD COUNT 4.5 K/UL (4.8-10.8)
[2016-11-16 06:57] LABS: ALANINE AMINOTRANSFERASE < 6 U/L (12-78); ALBUMIN/GLOBULIN RATIO 0.5 (1.0-2.7); ANION GAP 10 (5-15); ASPARTATE AMINO TRANSFERASE 11 U/L (15-37); CALCIUM 8.6 MG/DL (8.5-10.1); CARBON DIOXIDE 25 MMOL/L (21-32); CHLORIDE 105 MMOL/L (98-107); CREATININE 3.6 MG/DL (0.55-1.30); MAGNESIUM 1.8 MG/DL (1.8-2.4); SODIUM 140 MMOL/L (136-145)
[2016-11-16] MEDS: Pantoprazole Inj IVP SCH (08:27)
[2016-11-16] MEDS: Morphine Sulfate 2mg/ml Inj IVP PRN ×2 (08:27→17:15)
[2016-11-16] MEDS: Miralax 17gm pkt ORAL SCH (08:27)
[2016-11-16] MEDS: Revatio 20mg tab ORAL SCH ×3 (08:27→17:08)
[2016-11-16] MEDS: Docusate 100mg cap ORAL SCH ×2 (08:28→17:08)
[2016-11-16] MEDS: Eliquis 2.5mg tablet ORAL SCH ×2 (08:28→17:08)
[2016-11-16] MEDS: Calcitriol 0.25mcg Cap ORAL SCH (08:28)
--- NOTE | 2016-11-16 09:15 | Pulmonolgy Critical Care Note ---
Critical Care - Asmt/Plan Problems: (1) Acute and chronic respiratory failure (2) Anasarca (3) ATN (acute tubular necrosis) (4) Atrial fibrillation (5) Morbid obesity (6) Pickwickian syndrome Respiratory: monitor respiratory rate, adjust FIO2, CXR Cardiac: continue to monitor HR/BP Renal: F/U I&O, keep IV fluid, increase IV fluid, check electrolytes Infectious Disease: check cultures, continue antibiotics Gastrointestinal: continue feedings/current rate Endocrine: monitor blood sugar, check HgA1C, continue sliding scale insulin Hematologic: monitor H/H, transfuse if hgb<8.5 Neurologic: PRN Morphine, keep patient comfortable Affect: PRN ativan Prophylaxis: Protonix Notes Reviewed: content specialist, renal 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: nurses, consultants, case coordinatorindustrial engineering manager - Objective Last 24 Hour Vital Signs Date Time Temp Pulse Resp B/P (MAP) Pulse Ox O2 Delivery O2 Flow Rate FiO2 11/16/16 07:00 22 40 11/16/16 06:00 72 20 100/56 98 Mechanical Ventilator 40 11/16/16 05:00 70 20 85/42 98 Mechanical Ventilator 40 11/16/16 04:55 20 40 11/16/16 04:00 98.4 73 20 117/81 98 Mechanical Ventilator 40 11/16/16 04:00 73 11/16/16 04:00 40 11/16/16 03:30 20 40 11/16/16 03:00 73 20 112/54 98 Mechanical Ventilator 40 11/16/16 02:00 70 21 111/56 98 Mechanical Ventilator 40 11/16/16 01:00 72 23 83/50 96 Mechanical Ventilator 40 11/16/16 00:57 21 40 11/16/16 00:00 78 11/16/16 00:00 40 11/16/16 00:00 98.0 70 23 88/48 96 Mechanical Ventilator 40 11/15/16 23:30 20 40 11/15/16 23:00 73 23 110/65 99 Mechanical Ventilator 40 11/15/16 22:00 82 23 105/60 99 Mechanical Ventilator 40 11/15/16 21:30 22 40 11/15/16 21:00 75 21 85/50 99 Mechanical Ventilator 40 11/15/16 20:00 40 11/15/16 20:00 98.4 80 20 90/50 99 Mechanical Ventilator 40 11/15/16 20:00 80 11/15/16 19:30 24 40 11/15/16 18:00 76 20 86/44 96 Mechanical Ventilator 40 11/15/16 17:23 20 40 11/15/16 17:00 98.6 80 21 104/90 98 Mechanical Ventilator 40 11/15/16 16:00 83 11/15/16 16:00 40 11/15/16 16:00 85 20 101/53 100 Mechanical Ventilator 40 11/15/16 15:00 82 20 105/69 100 Mechanical Ventilator 40 11/15/16 14:57 20 40 11/15/16 14:00 80 20 107/63 98 Mechanical Ventilator 40 11/15/16 13:00 20 40 11/15/16 13:00 78 20 86/42 98 Mechanical Ventilator 40 11/15/16 12:00 98.5 80 20 96/52 100 Mechanical Ventilator 40 11/15/16 12:00 40 11/15/16 11:42 80 11/15/16 11:00 79 20 92/51 98 Mechanical Ventilator 40 11/15/16 11:00 20 40 11/15/16 10:00 83 20 88/59 100 Mechanical Ventilator 40 Status: awake Condition: critical HEENT: atraumatic, normocephalic Lungs: clear Heart: HR/BP stable, HR/BP unstable, regular Abdomen: soft, non-tender, active bowel sounds Extremities: no C/C/E Critical Care - Subjective ROS Limited/Unobtainable: No Condition: critical FI02: 40 Vent Support Breath Rate: 20 Vent Support Mode: AC Vent Tidal Volume: 600 Sputum Amount: Small PEEP: 5.0 PIP: 42 Drips: lasix drip CXR: no change ET-Tube: 6.0 ET Position: 15 Labs: Laboratory Tests Test 11/15/16 10:00 11/15/16 12:00 11/16/16 05:25 Arterial Blood pH 7.384 (7.350-7.450) Arterial Blood Partial Pressure CO2 47.3 mmHg (35.0-45.0) H Arterial Blood Partial Pressure O2 110.5 mmHg (75.0-100.0) H Arterial Blood HCO3 27.6 mmol/L (22.0-26.0) H Arterial Blood Oxygen Saturation 97.5 % (92.0-98.0) Arterial Blood Base Excess 2.1 Mike Test Positive Creatinine 3.5 MG/DL (0.55-1.30) H 3.6 MG/DL (0.55-1.30) H Estimat Glomerular Filtration Rate mL/min (>60) mL/min (>60) White Blood Count 4.5 K/UL (4.8-10.8) L Red Blood Count 2.88 M/UL (4.20-5.40) L Hemoglobin 8.6 G/DL (12.0-16.0) L Hematocrit 26.4 % (37.0-47.0) L Mean Corpuscular Volume 92 FL (80-99) Mean Corpuscular Hemoglobin 30.0 PG (27.0-31.0) Mean Corpuscular Hemoglobin Concent 32.7 G/DL (32.0-36.0) Red Cell Distribution Width 15.1 % (11.6-14.8) H Platelet Count 160 K/UL (150-450) Mean Platelet Volume 5.2 FL (6.5-10.1) L Neutrophils (%) (Auto) 55.5 % (45.0-75.0) Lymphocytes (%) (Auto) 21.1 % (20.0-45.0) Monocytes (%) (Auto) 14.5 % (1.0-10.0) H Eosinophils (%) (Auto) 7.3 % (0.0-3.0) H Basophils (%) (Auto) 1.5 % (0.0-2.0) Sodium Level 140 MMOL/L (136-145) Potassium Level 4.0 MMOL/L (3.5-5.1) Chloride Level 105 MMOL/L (98-107) Carbon Dioxide Level 25 MMOL/L (21-32) Anion Gap 10 (5-15) Blood Urea Nitrogen 61 mg/dL (7-18) H Glucose Level 79 MG/DL (74-106) Uric Acid 10.2 MG/DL (2.6-7.2) H Calcium Level 8.6 MG/DL (8.5-10.1) Phosphorus Level 4.0 MG/DL (2.5-4.9) Magnesium Level 1.8 MG/DL (1.8-2.4) Total Bilirubin 0.4 MG/DL (0.2-1.0) Aspartate Amino Transf (AST/SGOT) 11 U/L (15-37) L Alanine Aminotransferase (ALT/SGPT) < 6 U/L (12-78) L Alkaline Phosphatase 56 U/L (46-116) Total Protein 6.0 G/DL (6.4-8.2) L Albumin 2.0 G/DL (3.4-5.0) L Globulin 4.0 g/dL Albumin/Globulin Ratio 0.5 (1.0-2.7) L ARASH MIRANDA Nov 16, 2016 09:15
[2016-11-16] MEDS: Vitamin B-12 500mcg tab ORAL SCH (10:04)
--- NOTE | 2016-11-16 11:49 | Diagnostic Imaging Report ---
Indication: DYSPNEA Technique: One view of the chest Comparison: 11/15/2016 Findings: Tracheostomy, right greater than left pulmonary vascular congestion, cardio mainly all persist. Left hemidiaphragm is obscured, pleural fluid likely. Findings are unchanged Impression: Unchanged, over one day, findings as above.
[2016-11-16] MEDS ORDERED: Tubing IV Secondary IV ONE (14:42)
--- NOTE | 2016-11-16 14:55 | General Progress Note ---
Assessment/Plan Status: unchanged Status Narrative Cr 3.6- remains on lasix drip Assessment/Plan Cellulitis BLE and R arm- in the setting of chronic leg edema- r/o DVT Anasarca/ bilateral leg lymphedema CKD- and acute renal failure - Cr 3.1 unchanged since last admission- Acute respiratory failure s/p Trach Obese COPD , CHF, Diastolic MINA UTI Anemia GI Bleed, GI bleeding At Fib Pulm HTN h/o Low B12 add EPOGEN 24 H urine collection in process: CrCl 6 Monitor renal parameters- avoid nephrotoxics- pulmonary support- transfuse as needed Subjective ROS Limited/Unobtainable: No Constitutional: Reports: malaise, weakness Allergies: Coded Allergies: AMOXICILLIN (Verified Allergy, Mild, RASH, 09/30/16) PENICILLINS (Unverified Allergy, Unknown, 09/30/16) Objective Last 24 Hour Vital Signs Date Time Temp Pulse Resp B/P (MAP) Pulse Ox O2 Delivery O2 Flow Rate FiO2 11/16/16 14:00 70 21 91/53 95 Mechanical Ventilator 30 11/16/16 13:00 70 20 84/46 95 Mechanical Ventilator 30 11/16/16 12:58 81 20 40 11/16/16 12:00 30 11/16/16 12:00 70 11/16/16 12:00 98.1 71 20 102/48 98 Mechanical Ventilator 30 11/16/16 11:00 70 20 85/48 98 Mechanical Ventilator 30 11/16/16 10:50 20 40 11/16/16 10:00 78 20 92/45 98 Mechanical Ventilator 30 11/16/16 09:00 72 20 98/56 97 Mechanical Ventilator 30 11/16/16 08:57 98.4 11/16/16 08:41 20 40 11/16/16 08:00 30 11/16/16 08:00 73 11/16/16 08:00 75 22 100/58 98 Mechanical Ventilator 30 11/16/16 07:00 22 40 11/16/16 07:00 98.5 70 24 112/48 98 Mechanical Ventilator 30 11/16/16 06:00 72 20 100/56 98 Mechanical Ventilator 40 11/16/16 05:00 70 20 85/42 98 Mechanical Ventilator 40 11/16/16 04:55 20 40 11/16/16 04:00 98.4 73 20 117/81 98 Mechanical Ventilator 40 11/16/16 04:00 73 11/16/16 04:00 40 11/16/16 03:30 20 40 11/16/16 03:00 73 20 112/54 98 Mechanical Ventilator 40 11/16/16 02:00 70 21 111/56 98 Mechanical Ventilator 40 11/16/16 01:00 72 23 83/50 96 Mechanical Ventilator 40 11/16/16 00:57 21 40 11/16/16 00:00 78 11/16/16 00:00 40 11/16/16 00:00 98.0 70 23 88/48 96 Mechanical Ventilator 40 11/15/16 23:30 20 40 11/15/16 23:00 73 23 110/65 99 Mechanical Ventilator 40 11/15/16 22:00 82 23 105/60 99 Mechanical Ventilator 40 11/15/16 21:30 22 40 11/15/16 21:00 75 21 85/50 99 Mechanical Ventilator 40 11/15/16 20:00 40 11/15/16 20:00 98.4 80 20 90/50 99 Mechanical Ventilator 40 11/15/16 20:00 80 11/15/16 19:30 24 40 11/15/16 18:00 76 20 86/44 96 Mechanical Ventilator 40 11/15/16 17:23 20 40 11/15/16 17:00 98.6 80 21 104/90 98 Mechanical Ventilator 40 11/15/16 16:00 83 11/15/16 16:00 40 11/15/16 16:00 85 20 101/53 100 Mechanical Ventilator 40 11/15/16 15:00 82 20 105/69 100 Mechanical Ventilator 40 11/15/16 14:57 20 40 Intake and Output 11/16/16 11/17/16 19:00 07:00 Intake Total 160 ml Output Total 660 ml Balance -500 ml Intake Oral 100 ml IV Total 60 ml Output Urine Total 660 ml Laboratory Tests 11/16/16 05:25: White Blood Count 4.5L, Red Blood Count 2.88L, Hemoglobin 8.6L, Hematocrit 26.4L , Mean Corpuscular Volume 92, Mean Corpuscular Hemoglobin 30.0, Mean Corpuscular Hemoglobin Concent 32.7, Red Cell Distribution Width 15.1H, Platelet Count 160, Mean Platelet Volume 5.2L, Neutrophils (%) (Auto) 55.5, Lymphocytes (%) (Auto) 21.1, Monocytes (%) (Auto) 14.5H, Eosinophils (%) (Auto) 7.3H, Basophils (%) (Auto) 1.5, Sodium Level 140, Potassium Level 4.0, Chloride Level 105, Carbon Dioxide Level 25, Anion Gap 10, Blood Urea Nitrogen 61H, Creatinine 3.6H, Estimat Glomerular Filtration Rate , Glucose Level 79, Uric Acid 10.2H, Calcium Level 8.6, Phosphorus Level 4.0, Magnesium Level 1.8, Total Bilirubin 0.4, Aspartate Amino Transf (AST/SGOT) 11L, Alanine Aminotransferase ( ALT/SGPT) < 6L, Alkaline Phosphatase 56, Total Protein 6.0L, Albumin 2.0L, Globulin 4.0, Albumin/Globulin Ratio 0.5L Height (Feet): 5 Height (Inches): 6.00 Weight (Pounds): 412 General Appearance: other - trach to vent Cardiovascular: regular rhythm Respiratory/Chest: decreased breath sounds Abdomen: distended Edema: 2+ Arm (L), 2+ Arm (R), 2+ Leg (L), 2+ Leg (R), 2+ Pedal (L), 2+ Pedal ( R), 2+ Generalized Objective BP low , but doubtful measurement COURTNEY LOPEZ Nov 16, 2016 14:55
--- NOTE | 2016-11-16 15:18 | Infectious Diseases Prog Note ---
Assessment/Plan Assessment/Plan Abx: IV Vancomycin 11/11-11/12 IV Cefepime 11/11-11/12 IV Ancef 11/12- Flagyl x1 11/11 Assesment: Cellulitis BLE and R arm- in the setting of chronic leg edema- Limited Venous duplex BLE (non diagnostic), no DVT R arm -Bcx NTD Anasarca/ bilateral leg lymphedema -CXR: Limited evaluation. Suspected interstitial edema Afebrile, no leukocytosis REnal insufficiency COPD Diastolic CHF chronic resp failure, vent/trach dependent, Gtbue, pAfib, pleural effusion, MINA , CKD, GERD, morbid obesity, [place] resident Plan: -Continue Ancef for cellulitis (abx #07/21) -expect slow improvement given significant swelling; won't change abx unless febrile, worsening leukocytosis or worsening cellulitis -extremity elevation -edema management -f/u final Bcx -Monitor CBC/BMP, temperatures Thank you for this consultation. Will continue to follow along with you. 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 RN. Subjective Allergies: Coded Allergies: AMOXICILLIN (Verified Allergy, Mild, RASH, 09/30/16) PENICILLINS (Unverified Allergy, Unknown, 09/30/16) Subjective afebrile Bcx NTD Objective Vital Signs Last 24 Hour Vital Signs Date Time Temp Pulse Resp B/P (MAP) Pulse Ox O2 Delivery O2 Flow Rate FiO2 11/16/16 14:00 70 21 91/53 95 Mechanical Ventilator 30 11/16/16 13:00 70 20 84/46 95 Mechanical Ventilator 30 11/16/16 12:58 81 20 40 11/16/16 12:00 30 11/16/16 12:00 70 11/16/16 12:00 98.1 71 20 102/48 98 Mechanical Ventilator 30 11/16/16 11:00 70 20 85/48 98 Mechanical Ventilator 30 11/16/16 10:50 20 40 11/16/16 10:00 78 20 92/45 98 Mechanical Ventilator 30 11/16/16 09:00 72 20 98/56 97 Mechanical Ventilator 30 11/16/16 08:57 98.4 11/16/16 08:41 20 40 11/16/16 08:00 30 11/16/16 08:00 73 11/16/16 08:00 75 22 100/58 98 Mechanical Ventilator 30 11/16/16 07:00 22 40 11/16/16 07:00 98.5 70 24 112/48 98 Mechanical Ventilator 30 11/16/16 06:00 72 20 100/56 98 Mechanical Ventilator 40 11/16/16 05:00 70 20 85/42 98 Mechanical Ventilator 40 11/16/16 04:55 20 40 11/16/16 04:00 98.4 73 20 117/81 98 Mechanical Ventilator 40 11/16/16 04:00 73 11/16/16 04:00 40 11/16/16 03:30 20 40 11/16/16 03:00 73 20 112/54 98 Mechanical Ventilator 40 11/16/16 02:00 70 21 111/56 98 Mechanical Ventilator 40 11/16/16 01:00 72 23 83/50 96 Mechanical Ventilator 40 11/16/16 00:57 21 40 11/16/16 00:00 78 11/16/16 00:00 40 11/16/16 00:00 98.0 70 23 88/48 96 Mechanical Ventilator 40 11/15/16 23:30 20 40 11/15/16 23:00 73 23 110/65 99 Mechanical Ventilator 40 11/15/16 22:00 82 23 105/60 99 Mechanical Ventilator 40 11/15/16 21:30 22 40 11/15/16 21:00 75 21 85/50 99 Mechanical Ventilator 40 11/15/16 20:00 40 11/15/16 20:00 98.4 80 20 90/50 99 Mechanical Ventilator 40 11/15/16 20:00 80 11/15/16 19:30 24 40 11/15/16 18:00 76 20 86/44 96 Mechanical Ventilator 40 11/15/16 17:23 20 40 11/15/16 17:00 98.6 80 21 104/90 98 Mechanical Ventilator 40 11/15/16 16:00 83 11/15/16 16:00 40 11/15/16 16:00 85 20 101/53 100 Mechanical Ventilator 40 Height (Feet): 5 Height (Inches): 6.00 Weight (Pounds): 412 Objective General Appearance: WD/WN HEENT: trach in palce, Respiratory/Chest: chest wall non-tender, lungs clear Cardiovascular/Chest: normal peripheral pulses, normal rate Abdomen: normal bowel sounds, non tender Ext: anasarca; R > L LE swelling, both legs with blanching erythema anteriorly from distal leg up to below knee, +warmth, non TTP, no drainage R arm swelling, erythematous,. background changes of chronic lymphedema on b/l legs Laboratory Tests Test 11/16/16 05:25 White Blood Count 4.5 K/UL (4.8-10.8) L Red Blood Count 2.88 M/UL (4.20-5.40) L Hemoglobin 8.6 G/DL (12.0-16.0) L Hematocrit 26.4 % (37.0-47.0) L Mean Corpuscular Volume 92 FL (80-99) Mean Corpuscular Hemoglobin 30.0 PG (27.0-31.0) Mean Corpuscular Hemoglobin Concent 32.7 G/DL (32.0-36.0) Red Cell Distribution Width 15.1 % (11.6-14.8) H Platelet Count 160 K/UL (150-450) Mean Platelet Volume 5.2 FL (6.5-10.1) L Neutrophils (%) (Auto) 55.5 % (45.0-75.0) Lymphocytes (%) (Auto) 21.1 % (20.0-45.0) Monocytes (%) (Auto) 14.5 % (1.0-10.0) H Eosinophils (%) (Auto) 7.3 % (0.0-3.0) H Basophils (%) (Auto) 1.5 % (0.0-2.0) Sodium Level 140 MMOL/L (136-145) Potassium Level 4.0 MMOL/L (3.5-5.1) Chloride Level 105 MMOL/L (98-107) Carbon Dioxide Level 25 MMOL/L (21-32) Anion Gap 10 (5-15) Blood Urea Nitrogen 61 mg/dL (7-18) H Creatinine 3.6 MG/DL (0.55-1.30) H Estimat Glomerular Filtration Rate mL/min (>60) Glucose Level 79 MG/DL (74-106) Uric Acid 10.2 MG/DL (2.6-7.2) H Calcium Level 8.6 MG/DL (8.5-10.1) Phosphorus Level 4.0 MG/DL (2.5-4.9) Magnesium Level 1.8 MG/DL (1.8-2.4) Total Bilirubin 0.4 MG/DL (0.2-1.0) Aspartate Amino Transf (AST/SGOT) 11 U/L (15-37) L Alanine Aminotransferase (ALT/SGPT) < 6 U/L (12-78) L Alkaline Phosphatase 56 U/L (46-116) Total Protein 6.0 G/DL (6.4-8.2) L Albumin 2.0 G/DL (3.4-5.0) L Globulin 4.0 g/dL Albumin/Globulin Ratio 0.5 (1.0-2.7) L Current Medications Medications (Trade) Dose Ordered Sig/Kalyn Route PRN Reason Start Time Stop Time Status Last Admin Dose Admin Acetaminophen (Tylenol) 650 mg Q4H PRN ORAL Mild Pain/Temp > 100.5 11/14/16 08:00 12/12/16 07:59 Albuterol Sulfate (Proventil) 2.5 mg Q6H PRN HHN Shortness of Breath 11/14/16 08:00 11/19/16 07:59 Albuterol/ Ipratropium (DuoNeb 0.5-3(2.5)mg/3ml) 3 ml Q6H PRN HHN Shortness of Breath 11/14/16 08:00 11/19/16 07:59 Allopurinol (Allopurinol) 300 mg DAILY ORAL 11/16/16 10:00 12/16/16 09:59 11/16/16 10:04 Apixaban (Eliquis) 2.5 mg BID ORAL 11/14/16 09:00 12/12/16 08:59 11/16/16 08:28 Calcitriol (Rocatrol) 0.25 mcg DAILY ORAL 11/14/16 09:00 12/12/16 08:59 11/16/16 08:28 Cefazolin Sodium 50 ml @ 100 mls/hr Q12HR@0300,1500 IV 11/15/16 15:00 11/22/16 14:59 11/16/16 03:04 Cyanocobalamin (Vitamin B-12) 3,000 mcg DAILY ORAL 11/14/16 09:00 12/12/16 08:59 11/16/16 10:04 Docusate Sodium (Colace) 100 mg TWICE A DAY ORAL 11/14/16 09:00 12/12/16 08:59 11/16/16 08:28 Epoetin Santos (Procrit (for non ESRD use)) 10,000 units TUE-TUE-TUE SUBQ 11/17/16 21:00 12/17/16 20:59 Folic Acid (Folate) 1 mg DAILY ORAL 11/14/16 09:00 12/12/16 08:59 11/16/16 08:28 Furosemide 100 mg/ Dextrose 100 ml @ 10 mls/hr Q10H IV 11/15/16 15:00 12/15/16 14:59 11/16/16 11:27 Gabapentin (Neurontin) 600 mg BID ORAL 11/14/16 09:00 12/14/16 08:59 11/16/16 10:04 Iron Sucrose 200 mg/Sodium Chloride 120 ml @ 240 mls/hr ONCE ONCE IV 11/16/16 17:00 11/16/16 17:29 Letrozole (Femara) 2.5 mg DAILY ORAL 11/14/16 09:00 11/17/16 08:59 11/16/16 08:28 Lorazepam (Ativan 2mg/ml 1ml) 2 mg Q2H PRN IV For Anxiety 11/14/16 08:00 11/21/16 07:59 11/16/16 06:32 Morphine Sulfate (Morphine Sulfate) 2 mg Q4H PRN IVP Severe Pain (Pain Scale 7-10) 11/14/16 08:00 11/19/16 11:59 11/16/16 08:27 Pantoprazole (Protonix) 40 mg DAILY IVP 11/14/16 09:00 12/12/16 08:59 11/16/16 08:27 Polyethylene Glycol (Miralax) 17 gm DAILY ORAL 11/14/16 09:00 12/12/16 08:59 11/16/16 08:27 Pravastatin Sodium (Pravachol) 20 mg BEDTIME ORAL 11/14/16 21:00 12/12/16 20:59 11/15/16 21:00 Sevelamer Carbonate (Renvela) 800 mg THREE TIMES A DAY ORAL 11/14/16 09:00 12/12/16 08:59 11/16/16 13:23 Sildenafil Citrate (Revatio) 20 mg THREE TIMES A DAY ORAL 11/14/16 09:00 12/12/16 08:59 11/16/16 13:23 Danielle Guo M.D. Nov 16, 2016 15:18
[2016-11-16] MEDS ORDERED: Iron Sucrose 200 MG in NS 110 ML IV ONE (17:00)
--- NOTE | 2016-11-16 18:48 | General Progress Note ---
Assessment/Plan Assessment/Plan ASSESSMENT: 1. Anemia secondary to chronic disease. Continue to closely monitor. Work up reviewed --> s/p transfusion 2. Anemia of kidney disease. 3. History of breast cancer, currently on letrozole. 4. Chronic ventilator dependant tracheostomy, status post tracheostomy. 5. Permanent atrial fibrillation. She is on apixaban. 6. Chronic lymphedema of the bilateral lower extremities. Continue to monitor. 7. Congestive heart failure. Subjective Constitutional: Reports: no symptoms HEENT: Reports: no symptoms Cardiovascular: Reports: no symptoms Respiratory: Reports: no symptoms Gastrointestinal/Abdominal: Reports: no symptoms Genitourinary: Reports: no symptoms Neurologic/Psychiatric: Reports: no symptoms Endocrine: Reports: no symptoms Hematologic/Lymphatic: Reports: no symptoms Allergies: Coded Allergies: AMOXICILLIN (Verified Allergy, Mild, RASH, 09/30/16) PENICILLINS (Unverified Allergy, Unknown, 09/30/16) Subjective no major changes Objective Last 24 Hour Vital Signs Date Time Temp Pulse Resp B/P (MAP) Pulse Ox O2 Delivery O2 Flow Rate FiO2 11/16/16 18:00 82 24 111/57 99 Mechanical Ventilator 50 11/16/16 17:45 98.7 11/16/16 17:00 71 32 103/63 98 Mechanical Ventilator 50 11/16/16 16:50 78 20 40 11/16/16 16:00 87 11/16/16 16:00 98.7 87 28 98/52 96 Mechanical Ventilator 30 11/16/16 16:00 30 11/16/16 15:20 75 20 40 11/16/16 15:00 71 21 96/49 94 Mechanical Ventilator 30 11/16/16 14:00 70 21 91/53 95 Mechanical Ventilator 30 11/16/16 13:00 70 20 84/46 95 Mechanical Ventilator 30 11/16/16 12:58 81 20 40 11/16/16 12:00 30 11/16/16 12:00 70 11/16/16 12:00 98.1 71 20 102/48 98 Mechanical Ventilator 30 11/16/16 11:00 70 20 85/48 98 Mechanical Ventilator 30 11/16/16 10:50 20 40 11/16/16 10:00 78 20 92/45 98 Mechanical Ventilator 30 11/16/16 09:00 72 20 98/56 97 Mechanical Ventilator 30 11/16/16 08:41 20 40 11/16/16 08:00 30 11/16/16 08:00 73 11/16/16 08:00 75 22 100/58 98 Mechanical Ventilator 30 11/16/16 07:00 22 40 11/16/16 07:00 98.5 70 24 112/48 98 Mechanical Ventilator 30 11/16/16 06:00 72 20 100/56 98 Mechanical Ventilator 40 11/16/16 05:00 70 20 85/42 98 Mechanical Ventilator 40 11/16/16 04:55 20 40 11/16/16 04:00 98.4 73 20 117/81 98 Mechanical Ventilator 40 11/16/16 04:00 73 11/16/16 04:00 40 11/16/16 03:30 20 40 11/16/16 03:00 73 20 112/54 98 Mechanical Ventilator 40 11/16/16 02:00 70 21 111/56 98 Mechanical Ventilator 40 11/16/16 01:00 72 23 83/50 96 Mechanical Ventilator 40 11/16/16 00:57 21 40 11/16/16 00:00 78 11/16/16 00:00 40 11/16/16 00:00 98.0 70 23 88/48 96 Mechanical Ventilator 40 11/15/16 23:30 20 40 11/15/16 23:00 73 23 110/65 99 Mechanical Ventilator 40 11/15/16 22:00 82 23 105/60 99 Mechanical Ventilator 40 11/15/16 21:30 22 40 11/15/16 21:00 75 21 85/50 99 Mechanical Ventilator 40 11/15/16 20:00 40 11/15/16 20:00 98.4 80 20 90/50 99 Mechanical Ventilator 40 11/15/16 20:00 80 11/15/16 19:30 24 40 Intake and Output 11/16/16 11/17/16 19:00 07:00 Intake Total 260 ml Output Total 1010 ml Balance -750 ml Intake Oral 100 ml IV Total 160 ml Output Urine Total 1010 ml Laboratory Tests 11/16/16 05:25: White Blood Count 4.5L, Red Blood Count 2.88L, Hemoglobin 8.6L, Hematocrit 26.4L , Mean Corpuscular Volume 92, Mean Corpuscular Hemoglobin 30.0, Mean Corpuscular Hemoglobin Concent 32.7, Red Cell Distribution Width 15.1H, Platelet Count 160, Mean Platelet Volume 5.2L, Neutrophils (%) (Auto) 55.5, Lymphocytes (%) (Auto) 21.1, Monocytes (%) (Auto) 14.5H, Eosinophils (%) (Auto) 7.3H, Basophils (%) (Auto) 1.5, Sodium Level 140, Potassium Level 4.0, Chloride Level 105, Carbon Dioxide Level 25, Anion Gap 10, Blood Urea Nitrogen 61H, Creatinine 3.6H, Estimat Glomerular Filtration Rate , Glucose Level 79, Uric Acid 10.2H, Calcium Level 8.6, Phosphorus Level 4.0, Magnesium Level 1.8, Total Bilirubin 0.4, Aspartate Amino Transf (AST/SGOT) 11L, Alanine Aminotransferase ( ALT/SGPT) < 6L, Alkaline Phosphatase 56, Total Protein 6.0L, Albumin 2.0L, Globulin 4.0, Albumin/Globulin Ratio 0.5L Height (Feet): 5 Height (Inches): 6.00 Weight (Pounds): 412 Serafin Haines Nov 16, 2016 18:48
--- NOTE | 2016-11-16 20:54 | General Progress Note ---
Assessment/Plan Assessment/Plan This is a 76-year-old, morbidly obese female, admitted with anasarca and cellulitis of the lower leg. The patient was admitted to the directr observation unit on the monitor with the following medical problems. now transfered to icu as of 11-14-16 1. Anasarca. She appears to be markedly swollen. She will need diuresis. Place the patient on Lasix 20 mg intravenous for now q.12 hours. Cardiology and Pulmonary on the case. We will follow orders. Check laboratory studies daily. conitnue lasix drip 10 mg per hour, discussed with / Zoila may need dialysis if she doesn't respond to diuresis, 24 hour urine collection ordered 2. Chronic hypercapnic respiratory failure. Continue with vent support per Pulmonary. 3 anemia. s./p transfusion of PRBC Continue monitoring CBC daily. 4. Pulmonary hypertension. Continue with Eliquis 2.5 mg twice a day and medications per Pulmonary and Cardiology. hold #Eloquis if bleeding suspected 5. Chronic kidney disease. We will monitor BUN and creatinine. Gentle diuresis for now. Nephrology has been consulted. further workup per nephrology. avoid nephrotoxic agents 6. DVT prophylaxis. The patient is on Eliquis. The patient is Full Code. patient is severely volume overloaded will transfer to ICU for closer monitoring., ABG orn, chest xray and daily weights continue duresis, monitor bp , consider midodrin 5 mg tid if pressure drop, am labs discussed at length with icu nursing staff and consultants Subjective Date patient seen: Nov 16, 2016 ROS Limited/Unobtainable: Yes Allergies: Coded Allergies: AMOXICILLIN (Verified Allergy, Mild, RASH, 09/30/16) PENICILLINS (Unverified Allergy, Unknown, 09/30/16) Objective Last 24 Hour Vital Signs Date Time Temp Pulse Resp B/P (MAP) Pulse Ox O2 Delivery O2 Flow Rate FiO2 11/16/16 19:30 20 40 11/16/16 19:00 70 22 110/55 99 Mechanical Ventilator 50 11/16/16 18:00 82 24 111/57 99 Mechanical Ventilator 50 11/16/16 17:45 98.7 11/16/16 17:00 71 32 103/63 98 Mechanical Ventilator 50 11/16/16 16:50 78 20 40 11/16/16 16:00 87 11/16/16 16:00 98.7 87 28 98/52 96 Mechanical Ventilator 30 11/16/16 16:00 30 11/16/16 15:20 75 20 40 11/16/16 15:00 71 21 96/49 94 Mechanical Ventilator 30 11/16/16 14:00 70 21 91/53 95 Mechanical Ventilator 30 11/16/16 13:00 70 20 84/46 95 Mechanical Ventilator 30 11/16/16 12:58 81 20 40 11/16/16 12:00 30 11/16/16 12:00 70 11/16/16 12:00 98.1 71 20 102/48 98 Mechanical Ventilator 30 11/16/16 11:00 70 20 85/48 98 Mechanical Ventilator 30 11/16/16 10:50 20 40 11/16/16 10:00 78 20 92/45 98 Mechanical Ventilator 30 11/16/16 09:00 72 20 98/56 97 Mechanical Ventilator 30 11/16/16 08:41 20 40 11/16/16 08:00 30 11/16/16 08:00 73 11/16/16 08:00 75 22 100/58 98 Mechanical Ventilator 30 11/16/16 07:00 22 40 11/16/16 07:00 98.5 70 24 112/48 98 Mechanical Ventilator 30 11/16/16 06:00 72 20 100/56 98 Mechanical Ventilator 40 11/16/16 05:00 70 20 85/42 98 Mechanical Ventilator 40 11/16/16 04:55 20 40 11/16/16 04:00 98.4 73 20 117/81 98 Mechanical Ventilator 40 11/16/16 04:00 73 11/16/16 04:00 40 11/16/16 03:30 20 40 11/16/16 03:00 73 20 112/54 98 Mechanical Ventilator 40 11/16/16 02:00 70 21 111/56 98 Mechanical Ventilator 40 11/16/16 01:00 72 23 83/50 96 Mechanical Ventilator 40 11/16/16 00:57 21 40 11/16/16 00:00 78 11/16/16 00:00 40 11/16/16 00:00 98.0 70 23 88/48 96 Mechanical Ventilator 40 11/15/16 23:30 20 40 11/15/16 23:00 73 23 110/65 99 Mechanical Ventilator 40 11/15/16 22:00 82 23 105/60 99 Mechanical Ventilator 40 11/15/16 21:30 22 40 11/15/16 21:00 75 21 85/50 99 Mechanical Ventilator 40 Intake and Output 11/16/16 11/17/16 19:00 07:00 Intake Total 270 ml Output Total 1060 ml Balance -790 ml Intake Oral 100 ml IV Total 170 ml Output Urine Total 1060 ml Laboratory Tests 11/16/16 05:25: White Blood Count 4.5L, Red Blood Count 2.88L, Hemoglobin 8.6L, Hematocrit 26.4L , Mean Corpuscular Volume 92, Mean Corpuscular Hemoglobin 30.0, Mean Corpuscular Hemoglobin Concent 32.7, Red Cell Distribution Width 15.1H, Platelet Count 160, Mean Platelet Volume 5.2L, Neutrophils (%) (Auto) 55.5, Lymphocytes (%) (Auto) 21.1, Monocytes (%) (Auto) 14.5H, Eosinophils (%) (Auto) 7.3H, Basophils (%) (Auto) 1.5, Sodium Level 140, Potassium Level 4.0, Chloride Level 105, Carbon Dioxide Level 25, Anion Gap 10, Blood Urea Nitrogen 61H, Creatinine 3.6H, Estimat Glomerular Filtration Rate , Glucose Level 79, Uric Acid 10.2H, Calcium Level 8.6, Phosphorus Level 4.0, Magnesium Level 1.8, Total Bilirubin 0.4, Aspartate Amino Transf (AST/SGOT) 11L, Alanine Aminotransferase ( ALT/SGPT) < 6L, Alkaline Phosphatase 56, Total Protein 6.0L, Albumin 2.0L, Globulin 4.0, Albumin/Globulin Ratio 0.5L Height (Feet): 5 Height (Inches): 6.00 Weight (Pounds): 412 General Appearance: moderate distress, morbidly obese EENT: PERRL/EOMI, pharynx normal Neck: non-tender, supple Cardiovascular: normal rate, regular rhythm, no gallop/murmur, no JVD Respiratory/Chest: decreased breath sounds Abdomen: distended Extremities: swelling Edema: 4+ Arm (L), 4+ Arm (R), 4+ Leg (L), 4+ Leg (R), 4+ Pedal (L), 4+ Pedal ( R), 4+ Generalized Edema: severe edema Neurologic: feed blender II-XII grossly normal, oriented x 3, responsive Skin: rash Lymphatic: normal anterior cervical (L), normal anterior cervical (R), normal posterior cervical (L), normal posterior cervical (R), normal submandibular (L) , normal submandibular (R), normal supraclavicular (L), normal supraclavicular ( R), normal axillary (L), normal axillary (R), normal inguinal (L), normal inguinal (R), normal other Manny Nolan MD Nov 16, 2016 20:54
[2016-11-17] VITALS (25 sets, daily range): BP systolic 75–120; BP diastolic 37–88
[2016-11-17] MEDS: ceFAZolin 2gm/50ml Premix 50 ML IV SCH ×2 (03:42→15:19)
[2016-11-17] MEDS: Morphine Sulfate 2mg/ml Inj IVP PRN ×2 (04:16→09:18)
[2016-11-17 06:27] LABS: BASOPHILS % (AUTO) 0.9 % (0.0-2.0); EOSINOPHILS % (AUTO) 6.1 % (0.0-3.0); LYMPHOCYTES % (AUTO) 19.3 % (20.0-45.0); MEAN CORPUSCULAR HEMOGLOBIN 29.5 PG (27.0-31.0); MEAN CORPUSCULAR HGB CONC 32.2 G/DL (32.0-36.0); MEAN CORPUSCULAR VOLUME 92 FL (80-99); MEAN PLATELET VOLUME 5.8 FL (6.5-10.1); MONOCYTES % (AUTO) 12.4 % (1.0-10.0); NEUTROPHILS % (AUTO) 61.3 % (45.0-75.0); PLATELET COUNT 150 K/UL (150-450); RED CELL DISTRIBUTION WIDTH 15.5 % (11.6-14.8); WHITE BLOOD COUNT 4.8 K/UL (4.8-10.8)
[2016-11-17 06:59] LABS: ALBUMIN/GLOBULIN RATIO 0.5 (1.0-2.7); ANION GAP 10 (5-15); ASPARTATE AMINO TRANSFERASE 11 U/L (15-37); CALCIUM 8.3 MG/DL (8.5-10.1); CARBON DIOXIDE 25 MMOL/L (21-32); CHLORIDE 101 MMOL/L (98-107); CREATININE 3.5 MG/DL (0.55-1.30); POTASSIUM 3.7 MMOL/L (3.5-5.1); SODIUM 136 MMOL/L (136-145); TOTAL PROTEIN 5.9 G/DL (6.4-8.2)
[2016-11-17 07:07] LABS: ALANINE AMINOTRANSFERASE < 6 U/L (12-78)
[2016-11-17] MEDS: Revatio 20mg tab ORAL SCH ×3 (09:18→17:16)
[2016-11-17] MEDS: Calcitriol 0.25mcg Cap ORAL SCH (09:18)
[2016-11-17] MEDS: Docusate 100mg cap ORAL SCH ×2 (09:19→17:16)
[2016-11-17] MEDS: Miralax 17gm pkt ORAL SCH (09:19)
[2016-11-17] MEDS: Pantoprazole Inj IVP SCH (09:19)
[2016-11-17] MEDS: Vitamin B-12 500mcg tab ORAL SCH (09:19)
[2016-11-17] MEDS: Eliquis 2.5mg tablet ORAL SCH ×2 (09:20→17:15)
--- NOTE | 2016-11-17 09:43 | Infectious Diseases Prog Note ---
Assessment/Plan Assessment/Plan Abx: IV Vancomycin 11/11-11/12 IV Cefepime 11/11-11/12 IV Ancef 11/12- Flagyl x1 11/11 Assesment: Cellulitis BLE and R arm- in the setting of chronic leg edema- Limited Venous duplex BLE (non diagnostic), no DVT R arm -Bcx NTD Anasarca/ bilateral leg lymphedema -CXR: Limited evaluation. Suspected interstitial edema Afebrile, no leukocytosis REnal insufficiency COPD Diastolic CHF chronic resp failure, vent/trach dependent, Gtbue, pAfib, pleural effusion, MINA , CKD, GERD, morbid obesity, [facility] resident Plan: -Continue Ancef for cellulitis (abx #08/20) and add IV Vancomycin for additional coverage -extremity elevation -edema management -f/u final Bcx -Monitor CBC/BMP, temperatures Thank you for this consultation. Will continue to follow along with you. 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 RN. Subjective Allergies: Coded Allergies: AMOXICILLIN (Verified Allergy, Mild, RASH, 09/30/16) PENICILLINS (Unverified Allergy, Unknown, 09/30/16) Subjective afebrile Bcx Neg no leukocytosis still very edematous and cellulitis minimally improved Objective Vital Signs Last 24 Hour Vital Signs Date Time Temp Pulse Resp B/P (MAP) Pulse Ox O2 Delivery O2 Flow Rate FiO2 11/17/16 08:42 85 20 50 11/17/16 06:40 82 20 50 11/17/16 06:00 77 20 94/46 Mechanical Ventilator 50 11/17/16 05:00 26 88/50 Mechanical Ventilator 50 11/17/16 04:46 97.8 11/17/16 04:32 82 20 50 11/17/16 04:00 70 18 114/78 Mechanical Ventilator 50 11/17/16 04:00 50 11/17/16 04:00 70 11/17/16 03:08 80 20 50 11/17/16 02:00 63 21 87/52 Mechanical Ventilator 50 11/17/16 01:30 78 20 50 11/17/16 01:00 65 22 75/37 Mechanical Ventilator 50 11/17/16 00:57 50 11/17/16 00:44 98.0 87 21 85/49 Mechanical Ventilator 50 87 11/17/16 00:28 98.0 87 21 85/49 100 Mechanical Ventilator 50 11/17/16 00:24 87 30 85/49 100 Mechanical Ventilator 50 11/17/16 00:00 63 11/16/16 23:30 81 20 50 11/16/16 21:13 84 20 40 11/16/16 19:30 89 20 40 11/16/16 19:00 70 22 110/55 99 Mechanical Ventilator 50 11/16/16 18:00 82 24 111/57 99 Mechanical Ventilator 50 11/16/16 17:00 71 32 103/63 98 Mechanical Ventilator 50 11/16/16 16:50 78 20 40 11/16/16 16:00 87 11/16/16 16:00 98.7 87 28 98/52 96 Mechanical Ventilator 30 11/16/16 16:00 30 11/16/16 15:20 75 20 40 11/16/16 15:00 71 21 96/49 94 Mechanical Ventilator 30 11/16/16 14:00 70 21 91/53 95 Mechanical Ventilator 30 11/16/16 13:00 70 20 84/46 95 Mechanical Ventilator 30 11/16/16 12:58 81 20 40 11/16/16 12:00 30 11/16/16 12:00 70 11/16/16 12:00 98.1 71 20 102/48 98 Mechanical Ventilator 30 11/16/16 11:00 70 20 85/48 98 Mechanical Ventilator 30 11/16/16 10:50 20 40 11/16/16 10:00 78 20 92/45 98 Mechanical Ventilator 30 Height (Feet): 5 Height (Inches): 6.00 Weight (Pounds): 410 Objective General Appearance: WD/WN HEENT: trach in palce, Respiratory/Chest: chest wall non-tender, lungs clear Cardiovascular/Chest: normal peripheral pulses, normal rate Abdomen: normal bowel sounds, non tender Ext: anasarca; R > L LE swelling, both legs with blanching erythema anteriorly from distal leg up to below knee, +warmth, non TTP, no drainage R arm swelling, erythematous,. background changes of chronic lymphedema on b/l legs; minimally improved reviewed Laboratory Tests Test 11/17/16 05:30 White Blood Count 4.8 K/UL (4.8-10.8) Red Blood Count 3.10 M/UL (4.20-5.40) L Hemoglobin 9.2 G/DL (12.0-16.0) L Hematocrit 28.5 % (37.0-47.0) L Mean Corpuscular Volume 92 FL (80-99) Mean Corpuscular Hemoglobin 29.5 PG (27.0-31.0) Mean Corpuscular Hemoglobin Concent 32.2 G/DL (32.0-36.0) Red Cell Distribution Width 15.5 % (11.6-14.8) H Platelet Count 150 K/UL (150-450) Mean Platelet Volume 5.8 FL (6.5-10.1) L Neutrophils (%) (Auto) 61.3 % (45.0-75.0) Lymphocytes (%) (Auto) 19.3 % (20.0-45.0) L Monocytes (%) (Auto) 12.4 % (1.0-10.0) H Eosinophils (%) (Auto) 6.1 % (0.0-3.0) H Basophils (%) (Auto) 0.9 % (0.0-2.0) Sodium Level 136 MMOL/L (136-145) Potassium Level 3.7 MMOL/L (3.5-5.1) Chloride Level 101 MMOL/L (98-107) Carbon Dioxide Level 25 MMOL/L (21-32) Anion Gap 10 (5-15) Blood Urea Nitrogen 63 mg/dL (7-18) H Creatinine 3.5 MG/DL (0.55-1.30) H Estimat Glomerular Filtration Rate mL/min (>60) Glucose Level 92 MG/DL (74-106) Calcium Level 8.3 MG/DL (8.5-10.1) L Total Bilirubin 0.4 MG/DL (0.2-1.0) Aspartate Amino Transf (AST/SGOT) 11 U/L (15-37) L Alanine Aminotransferase (ALT/SGPT) < 6 U/L (12-78) L Alkaline Phosphatase 56 U/L (46-116) Pro-B-Type Natriuretic Peptide 27465 (0-125) H Total Protein 5.9 G/DL (6.4-8.2) L Albumin 1.9 G/DL (3.4-5.0) L Globulin 4.0 g/dL Albumin/Globulin Ratio 0.5 (1.0-2.7) L Current Medications Medications (Trade) Dose Ordered Sig/Kalyn Route PRN Reason Start Time Stop Time Status Last Admin Dose Admin Acetaminophen (Tylenol) 650 mg Q4H PRN ORAL Mild Pain/Temp > 100.5 11/14/16 08:00 12/12/16 07:59 Albuterol Sulfate (Proventil) 2.5 mg Q6H PRN HHN Shortness of Breath 11/14/16 08:00 11/19/16 07:59 Albuterol/ Ipratropium (DuoNeb 0.5-3(2.5)mg/3ml) 3 ml Q6H PRN HHN Shortness of Breath 11/14/16 08:00 11/19/16 07:59 Allopurinol (Allopurinol) 300 mg DAILY ORAL 11/16/16 10:00 12/16/16 09:59 11/17/16 09:35 Apixaban (Eliquis) 2.5 mg BID ORAL 11/14/16 09:00 12/12/16 08:59 11/17/16 09:20 Calcitriol (Rocatrol) 0.25 mcg DAILY ORAL 11/14/16 09:00 12/12/16 08:59 11/17/16 09:18 Cefazolin Sodium 50 ml @ 100 mls/hr Q12HR@0300,1500 IV 11/15/16 15:00 11/22/16 14:59 11/17/16 03:42 Cyanocobalamin (Vitamin B-12) 3,000 mcg DAILY ORAL 11/14/16 09:00 12/12/16 08:59 11/17/16 09:19 Docusate Sodium (Colace) 100 mg TWICE A DAY ORAL 11/14/16 09:00 12/12/16 08:59 11/17/16 09:19 Epoetin Santos (Procrit (for non ESRD use)) 10,000 units MON-WED-TUE SUBQ 11/17/16 21:00 12/17/16 20:59 Folic Acid (Folate) 1 mg DAILY ORAL 11/14/16 09:00 12/12/16 08:59 11/17/16 09:18 Furosemide 100 mg/ Dextrose 100 ml @ 10 mls/hr Q10H IV 11/15/16 15:00 12/15/16 14:59 11/17/16 09:17 Gabapentin (Neurontin) 600 mg BID ORAL 11/14/16 09:00 12/14/16 08:59 11/17/16 09:19 Lorazepam (Ativan 2mg/ml 1ml) 2 mg Q2H PRN IV For Anxiety 11/14/16 08:00 11/21/16 07:59 11/16/16 06:32 Morphine Sulfate (Morphine Sulfate) 2 mg Q4H PRN IVP Severe Pain (Pain Scale 7-10) 11/14/16 08:00 11/19/16 11:59 11/17/16 09:18 Pantoprazole (Protonix) 40 mg DAILY IVP 11/14/16 09:00 12/12/16 08:59 11/17/16 09:19 Polyethylene Glycol (Miralax) 17 gm DAILY ORAL 11/14/16 09:00 12/12/16 08:59 11/17/16 09:19 Pravastatin Sodium (Pravachol) 20 mg BEDTIME ORAL 11/14/16 21:00 12/12/16 20:59 11/16/16 21:09 Sevelamer Carbonate (Renvela) 800 mg THREE TIMES A DAY ORAL 11/14/16 09:00 12/12/16 08:59 11/17/16 09:18 Sildenafil Citrate (Revatio) 20 mg THREE TIMES A DAY ORAL 11/14/16 09:00 12/12/16 08:59 11/17/16 09:18 Danielle Guo M.D. Nov 17, 2016 09:43
--- NOTE | 2016-11-17 09:53 | General Progress Note ---
Assessment/Plan Status: unchanged Status Narrative Cr 3.5 Assessment/Plan Cellulitis BLE and R arm- in the setting of chronic leg edema- r/o DVT Anasarca/ bilateral leg lymphedema CKD- and acute renal failure - Cr 3.1 unchanged since last admission- Acute respiratory failure s/p Trach Obese COPD , CHF, Diastolic MINA UTI Anemia GI Bleed, GI bleeding At Fib Pulm HTN h/o Low B12 plan: add zaroxyllin add EPOGEN 24 H urine collection in process: CrCl 6 Monitor renal parameters- optimize cardiac and pulm status avoid nephrotoxics- pulmonary support- transfuse as needed Subjective ROS Limited/Unobtainable: No Constitutional: Reports: malaise Allergies: Coded Allergies: AMOXICILLIN (Verified Allergy, Mild, RASH, 09/30/16) PENICILLINS (Unverified Allergy, Unknown, 09/30/16) Objective Last 24 Hour Vital Signs Date Time Temp Pulse Resp B/P (MAP) Pulse Ox O2 Delivery O2 Flow Rate FiO2 11/17/16 08:42 85 20 50 11/17/16 06:40 82 20 50 11/17/16 06:00 77 20 94/46 Mechanical Ventilator 50 11/17/16 05:00 26 88/50 Mechanical Ventilator 50 11/17/16 04:46 97.8 11/17/16 04:32 82 20 50 11/17/16 04:00 70 18 114/78 Mechanical Ventilator 50 11/17/16 04:00 50 11/17/16 04:00 70 11/17/16 03:08 80 20 50 11/17/16 02:00 63 21 87/52 Mechanical Ventilator 50 11/17/16 01:30 78 20 50 11/17/16 01:00 65 22 75/37 Mechanical Ventilator 50 11/17/16 00:57 50 11/17/16 00:44 98.0 87 21 85/49 Mechanical Ventilator 50 87 11/17/16 00:28 98.0 87 21 85/49 100 Mechanical Ventilator 50 11/17/16 00:24 87 30 85/49 100 Mechanical Ventilator 50 11/17/16 00:00 63 11/16/16 23:30 81 20 50 11/16/16 21:13 84 20 40 11/16/16 19:30 89 20 40 11/16/16 19:00 70 22 110/55 99 Mechanical Ventilator 50 11/16/16 18:00 82 24 111/57 99 Mechanical Ventilator 50 11/16/16 17:00 71 32 103/63 98 Mechanical Ventilator 50 11/16/16 16:50 78 20 40 11/16/16 16:00 87 11/16/16 16:00 98.7 87 28 98/52 96 Mechanical Ventilator 30 11/16/16 16:00 30 11/16/16 15:20 75 20 40 11/16/16 15:00 71 21 96/49 94 Mechanical Ventilator 30 11/16/16 14:00 70 21 91/53 95 Mechanical Ventilator 30 11/16/16 13:00 70 20 84/46 95 Mechanical Ventilator 30 11/16/16 12:58 81 20 40 11/16/16 12:00 30 11/16/16 12:00 70 11/16/16 12:00 98.1 71 20 102/48 98 Mechanical Ventilator 30 11/16/16 11:00 70 20 85/48 98 Mechanical Ventilator 30 11/16/16 10:50 20 40 11/16/16 10:00 78 20 92/45 98 Mechanical Ventilator 30 Laboratory Tests 11/17/16 05:30: White Blood Count 4.8, Red Blood Count 3.10L, Hemoglobin 9.2L, Hematocrit 28.5L , Mean Corpuscular Volume 92, Mean Corpuscular Hemoglobin 29.5, Mean Corpuscular Hemoglobin Concent 32.2, Red Cell Distribution Width 15.5H, Platelet Count 150, Mean Platelet Volume 5.8L, Neutrophils (%) (Auto) 61.3, Lymphocytes (%) (Auto) 19.3L, Monocytes (%) (Auto) 12.4H, Eosinophils (%) (Auto ) 6.1H, Basophils (%) (Auto) 0.9, Sodium Level 136, Potassium Level 3.7, Chloride Level 101, Carbon Dioxide Level 25, Anion Gap 10, Blood Urea Nitrogen 63H, Creatinine 3.5H, Estimat Glomerular Filtration Rate , Glucose Level 92, Calcium Level 8.3L, Total Bilirubin 0.4, Aspartate Amino Transf (AST/SGOT) 11L, Alanine Aminotransferase (ALT/SGPT) < 6L, Alkaline Phosphatase 56, Pro-B-Type Natriuretic Peptide 07918C, Total Protein 5.9L, Albumin 1.9L, Globulin 4.0, Albumin/Globulin Ratio 0.5L Height (Feet): 5 Height (Inches): 6.00 Weight (Pounds): 410 General Appearance: no apparent distress Cardiovascular: normal rate Respiratory/Chest: decreased breath sounds Abdomen: distended Edema: 2+ Arm (L), 2+ Arm (R), 2+ Leg (L), 2+ Leg (R), 2+ Pedal (L), 2+ Pedal ( R), 2+ Generalized Objective BP low , but doubtful measurement COURTNEY LOPEZ Nov 17, 2016 09:53
--- NOTE | 2016-11-17 11:02 | Pulmonolgy Critical Care Note ---
Critical Care - Asmt/Plan Problems: (1) Acute and chronic respiratory failure (2) Anasarca (3) ATN (acute tubular necrosis) (4) Atrial fibrillation (5) Morbid obesity (6) Pickwickian syndrome Respiratory: monitor respiratory rate Cardiac: start pressors Renal: F/U I&O, keep IV fluid Infectious Disease: check cultures Gastrointestinal: continue feedings/current rate Endocrine: monitor blood sugar, check TSH, check HgA1C, continue sliding scale insulin Hematologic: transfuse if hgb<8.5 Neurologic: PRN Ativan, PRN Morphine, keep patient comfortable Prophylaxis: Protonix, Heparin Time Spent (Minutes): 40 Notes Reviewed: cardio, renal 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: nurses, consultants, case briefermanager pulmonary - Objective Last 24 Hour Vital Signs Date Time Temp Pulse Resp B/P (MAP) Pulse Ox O2 Delivery O2 Flow Rate FiO2 11/17/16 08:42 85 20 50 11/17/16 06:40 82 20 50 11/17/16 06:00 77 20 94/46 Mechanical Ventilator 50 11/17/16 05:00 26 88/50 Mechanical Ventilator 50 11/17/16 04:46 97.8 11/17/16 04:32 82 20 50 11/17/16 04:00 70 18 114/78 Mechanical Ventilator 50 11/17/16 04:00 50 11/17/16 04:00 70 11/17/16 03:08 80 20 50 11/17/16 02:00 63 21 87/52 Mechanical Ventilator 50 11/17/16 01:30 78 20 50 11/17/16 01:00 65 22 75/37 Mechanical Ventilator 50 11/17/16 00:57 50 11/17/16 00:44 98.0 87 21 85/49 Mechanical Ventilator 50 87 11/17/16 00:28 98.0 87 21 85/49 100 Mechanical Ventilator 50 11/17/16 00:24 87 30 85/49 100 Mechanical Ventilator 50 11/17/16 00:00 63 11/16/16 23:30 81 20 50 11/16/16 21:13 84 20 40 11/16/16 19:30 89 20 40 11/16/16 19:00 70 22 110/55 99 Mechanical Ventilator 50 11/16/16 18:00 82 24 111/57 99 Mechanical Ventilator 50 11/16/16 17:00 71 32 103/63 98 Mechanical Ventilator 50 11/16/16 16:50 78 20 40 11/16/16 16:00 87 11/16/16 16:00 98.7 87 28 98/52 96 Mechanical Ventilator 30 11/16/16 16:00 30 11/16/16 15:20 75 20 40 11/16/16 15:00 71 21 96/49 94 Mechanical Ventilator 30 11/16/16 14:00 70 21 91/53 95 Mechanical Ventilator 30 11/16/16 13:00 70 20 84/46 95 Mechanical Ventilator 30 11/16/16 12:58 81 20 40 11/16/16 12:00 30 11/16/16 12:00 70 11/16/16 12:00 98.1 71 20 102/48 98 Mechanical Ventilator 30 11/16/16 11:00 70 20 85/48 98 Mechanical Ventilator 30 Status: awake Condition: critical HEENT: atraumatic Neck: full ROM Lungs: clear Heart: HR/BP stable, regular Abdomen: soft, non-tender, active bowel sounds Extremities: no C/C/E Critical Care - Subjective ROS Limited/Unobtainable: Yes ICU Day: 5 Condition: critical EKG Rhythm: Sinus Rhythm FI02: 50 Vent Support Breath Rate: 20 Vent Support Mode: AC Vent Tidal Volume: 600 Sputum Amount: Small PEEP: 5.0 PIP: 62 Drips: lasix drip CXR: no change ET-Tube: 6.0 ET Position: 15 Labs: Laboratory Tests Test 11/17/16 05:30 White Blood Count 4.8 K/UL (4.8-10.8) Red Blood Count 3.10 M/UL (4.20-5.40) L Hemoglobin 9.2 G/DL (12.0-16.0) L Hematocrit 28.5 % (37.0-47.0) L Mean Corpuscular Volume 92 FL (80-99) Mean Corpuscular Hemoglobin 29.5 PG (27.0-31.0) Mean Corpuscular Hemoglobin Concent 32.2 G/DL (32.0-36.0) Red Cell Distribution Width 15.5 % (11.6-14.8) H Platelet Count 150 K/UL (150-450) Mean Platelet Volume 5.8 FL (6.5-10.1) L Neutrophils (%) (Auto) 61.3 % (45.0-75.0) Lymphocytes (%) (Auto) 19.3 % (20.0-45.0) L Monocytes (%) (Auto) 12.4 % (1.0-10.0) H Eosinophils (%) (Auto) 6.1 % (0.0-3.0) H Basophils (%) (Auto) 0.9 % (0.0-2.0) Sodium Level 136 MMOL/L (136-145) Potassium Level 3.7 MMOL/L (3.5-5.1) Chloride Level 101 MMOL/L (98-107) Carbon Dioxide Level 25 MMOL/L (21-32) Anion Gap 10 (5-15) Blood Urea Nitrogen 63 mg/dL (7-18) H Creatinine 3.5 MG/DL (0.55-1.30) H Estimat Glomerular Filtration Rate mL/min (>60) Glucose Level 92 MG/DL (74-106) Calcium Level 8.3 MG/DL (8.5-10.1) L Total Bilirubin 0.4 MG/DL (0.2-1.0) Aspartate Amino Transf (AST/SGOT) 11 U/L (15-37) L Alanine Aminotransferase (ALT/SGPT) < 6 U/L (12-78) L Alkaline Phosphatase 56 U/L (46-116) Pro-B-Type Natriuretic Peptide 76130 (0-125) H Total Protein 5.9 G/DL (6.4-8.2) L Albumin 1.9 G/DL (3.4-5.0) L Globulin 4.0 g/dL Albumin/Globulin Ratio 0.5 (1.0-2.7) L ARASH MIRANDA Nov 17, 2016 11:02
--- NOTE | 2016-11-17 11:34 | Diagnostic Imaging Report ---
Indication: DYSPNEA Technique: One view of the chest Comparison: 11/16/2016 Findings: Bilateral interstitial edema persists, probably unchanged allowing for technical differences. The heart remains enlarged. Tracheostomy remains. Findings are unchanged Impression: Unchanged, over one day, findings as above.
--- NOTE | 2016-11-17 13:29 | General Progress Note ---
Progress Note Progress Note ENT Note dictated Pt is scheduled for revision trach this Tuesday11/19/16 2:30PM ANGELO CARLIN Nov 17, 2016 13:29
[2016-11-17 13:33] LABS: OTHERS PATHOLOGIST COMMENT
[2016-11-17] MEDS ORDERED: Vancomycin 1.5 GM/D5W 250ML IVPB ONE (15:00)
[2016-11-17] MEDS: Morphine Sulfate 10mg/ml Inj IVP PRN (16:56)
[2016-11-17] MEDS ORDERED: NS 275ml ONE (17:18)
--- NOTE | 2016-11-17 17:33 | General Progress Note ---
Assessment/Plan Assessment/Plan ASSESSMENT: 1. Anemia secondary to chronic disease. Continue to closely monitor. Work up reviewed --> s/p transfusion. watch counts, transfuse if hgb is below 8 2. Anemia of kidney disease. 3. History of breast cancer, currently on letrozole. 4. Chronic ventilator dependant, to receive trach 5. Permanent atrial fibrillation. She is on apixaban. 6. Chronic lymphedema of the bilateral lower extremities. Continue to monitor. 7. Congestive heart failure. Subjective Constitutional: Reports: no symptoms HEENT: Reports: no symptoms Cardiovascular: Reports: no symptoms Respiratory: Reports: no symptoms Gastrointestinal/Abdominal: Reports: no symptoms Genitourinary: Reports: no symptoms Neurologic/Psychiatric: Reports: no symptoms Endocrine: Reports: no symptoms Hematologic/Lymphatic: Reports: anemia Allergies: Coded Allergies: AMOXICILLIN (Verified Allergy, Mild, RASH, 09/30/16) PENICILLINS (Unverified Allergy, Unknown, 09/30/16) Subjective NAD Objective Last 24 Hour Vital Signs Date Time Temp Pulse Resp B/P (MAP) Pulse Ox O2 Delivery O2 Flow Rate FiO2 11/17/16 17:05 20 50 11/17/16 17:00 72 25 101/53 96 Mechanical Ventilator 50 11/17/16 16:00 98.5 70 22 89/52 98 Mechanical Ventilator 50 11/17/16 16:00 68 11/17/16 16:00 50 11/17/16 15:10 20 50 11/17/16 15:00 84 22 91/46 98 Mechanical Ventilator 50 11/17/16 14:00 68 22 88/42 98 Mechanical Ventilator 50 11/17/16 13:00 21 50 11/17/16 13:00 65 24 108/55 98 Mechanical Ventilator 50 11/17/16 12:00 50 11/17/16 12:00 70 11/17/16 12:00 98.0 70 26 120/58 97 Mechanical Ventilator 50 11/17/16 11:00 74 28 108/60 98 Mechanical Ventilator 50 11/17/16 10:55 84 22 50 11/17/16 10:00 77 28 111/60 95 Mechanical Ventilator 50 11/17/16 09:00 71 25 114/75 96 Mechanical Ventilator 50 11/17/16 08:42 85 20 50 11/17/16 08:00 50 11/17/16 08:00 72 11/17/16 08:00 71 28 105/75 95 Mechanical Ventilator 50 11/17/16 07:00 98.7 70 28 105/75 95 Mechanical Ventilator 50 11/17/16 06:40 82 20 50 11/17/16 06:00 77 20 94/46 Mechanical Ventilator 50 11/17/16 05:00 26 88/50 Mechanical Ventilator 50 11/17/16 04:46 97.8 11/17/16 04:32 82 20 50 11/17/16 04:00 70 18 114/78 Mechanical Ventilator 50 11/17/16 04:00 50 11/17/16 04:00 70 11/17/16 03:08 80 20 50 11/17/16 02:00 63 21 87/52 Mechanical Ventilator 50 11/17/16 01:30 78 20 50 11/17/16 01:00 65 22 75/37 Mechanical Ventilator 50 11/17/16 00:57 50 11/17/16 00:44 98.0 87 21 85/49 Mechanical Ventilator 50 87 11/17/16 00:28 98.0 87 21 85/49 100 Mechanical Ventilator 50 11/17/16 00:24 87 30 85/49 100 Mechanical Ventilator 50 11/17/16 00:00 63 11/16/16 23:30 81 20 50 11/16/16 21:13 84 20 40 11/16/16 19:30 89 20 40 11/16/16 19:00 70 22 110/55 99 Mechanical Ventilator 50 11/16/16 18:00 82 24 111/57 99 Mechanical Ventilator 50 Intake and Output 11/17/16 11/18/16 19:00 07:00 Intake Total 450 ml Output Total 1140 ml Balance -690 ml Intake Oral 50 ml IV Total 400 ml Output Urine Total 1140 ml # Voids 120 Laboratory Tests 11/17/16 05:30: White Blood Count 4.8, Red Blood Count 3.10L, Hemoglobin 9.2L, Hematocrit 28.5L , Mean Corpuscular Volume 92, Mean Corpuscular Hemoglobin 29.5, Mean Corpuscular Hemoglobin Concent 32.2, Red Cell Distribution Width 15.5H, Platelet Count 150, Mean Platelet Volume 5.8L, Neutrophils (%) (Auto) 61.3, Lymphocytes (%) (Auto) 19.3L, Monocytes (%) (Auto) 12.4H, Eosinophils (%) (Auto ) 6.1H, Basophils (%) (Auto) 0.9, Sodium Level 136, Potassium Level 3.7, Chloride Level 101, Carbon Dioxide Level 25, Anion Gap 10, Blood Urea Nitrogen 63H, Creatinine 3.5H, Estimat Glomerular Filtration Rate , Glucose Level 92, Calcium Level 8.3L, Total Bilirubin 0.4, Aspartate Amino Transf (AST/SGOT) 11L, Alanine Aminotransferase (ALT/SGPT) < 6L, Alkaline Phosphatase 56, Pro-B-Type Natriuretic Peptide 86771E, Total Protein 5.9L, Albumin 1.9L, Globulin 4.0, Albumin/Globulin Ratio 0.5L Height (Feet): 5 Height (Inches): 6.00 Weight (Pounds): 410 General Appearance: lethargic EENT: TMs normal Neck: normal inspection Respiratory/Chest: normal breath sounds Extremities: non-tender Skin: warm/dry Serafin Haines Nov 17, 2016 17:33
--- NOTE | 2016-11-17 20:12 | General Progress Note ---
Assessment/Plan Assessment/Plan This is a 76-year-old, morbidly obese female, admitted with anasarca and cellulitis of the lower leg. The patient was admitted to the directr observation unit on the monitor with the following medical problems. now transfered to icu as of 11-14-16 1. Anasarca. She appears to be markedly swollen. She will need diuresis. Place the patient on Lasix 20 mg intravenous for now q.12 hours. Cardiology and Pulmonary on the case. We will follow orders. Check laboratory studies daily. conitnue lasix drip 10 mg per hour, discussed with / Zoila may need dialysis if she doesn't respond to diuresis, 24 hour urine collection ordered 2. Chronic hypercapnic respiratory failure. Continue with vent support per Pulmonary. 3 anemia. s./p transfusion of PRBC Continue monitoring CBC daily. 4. Pulmonary hypertension. Continue with Eliquis 2.5 mg twice a day and medications per Pulmonary and Cardiology. hold #Eloquis if bleeding suspected 5. Chronic kidney disease. We will monitor BUN and creatinine. Gentle diuresis for now. Nephrology has been consulted. further workup per nephrology. avoid nephrotoxic agents 6. DVT prophylaxis. The patient is on Eliquis. The patient is Full Code. patient is severely volume overloaded will transfer to ICU for closer monitoring., ABG prn, chest xray and daily weights continue duresis, monitor bp , consider midodrin 5 mg tid if pressure drop, am labs discussed at length with icu nursing staff and consultants elevate right arm with pillow while reclining tach to be refitted on tuesday Subjective Date patient seen: Nov 17, 2016 ROS Limited/Unobtainable: Yes Allergies: Coded Allergies: AMOXICILLIN (Verified Allergy, Mild, RASH, 09/30/16) PENICILLINS (Unverified Allergy, Unknown, 09/30/16) Objective Last 24 Hour Vital Signs Date Time Temp Pulse Resp B/P (MAP) Pulse Ox O2 Delivery O2 Flow Rate FiO2 11/17/16 19:17 20 50 11/17/16 19:00 68 20 82/43 96 Mechanical Ventilator 50 11/17/16 18:00 68 20 91/49 99 Mechanical Ventilator 50 11/17/16 17:25 98.5 11/17/16 17:05 20 50 11/17/16 17:00 72 25 101/53 96 Mechanical Ventilator 50 11/17/16 16:00 98.5 70 22 89/52 98 Mechanical Ventilator 50 11/17/16 16:00 68 11/17/16 16:00 50 11/17/16 15:10 20 50 11/17/16 15:00 84 22 91/46 98 Mechanical Ventilator 50 11/17/16 14:00 68 22 88/42 98 Mechanical Ventilator 50 11/17/16 13:00 21 50 11/17/16 13:00 65 24 108/55 98 Mechanical Ventilator 50 11/17/16 12:00 50 11/17/16 12:00 70 11/17/16 12:00 98.0 70 26 120/58 97 Mechanical Ventilator 50 11/17/16 11:00 74 28 108/60 98 Mechanical Ventilator 50 11/17/16 10:55 84 22 50 11/17/16 10:00 77 28 111/60 95 Mechanical Ventilator 50 11/17/16 09:00 71 25 114/75 96 Mechanical Ventilator 50 11/17/16 08:42 85 20 50 11/17/16 08:00 50 11/17/16 08:00 72 11/17/16 08:00 71 28 105/75 95 Mechanical Ventilator 50 11/17/16 07:00 98.7 70 28 105/75 95 Mechanical Ventilator 50 11/17/16 06:40 82 20 50 11/17/16 06:00 77 20 94/46 Mechanical Ventilator 50 11/17/16 05:00 26 88/50 Mechanical Ventilator 50 11/17/16 04:46 97.8 11/17/16 04:32 82 20 50 11/17/16 04:00 70 18 114/78 Mechanical Ventilator 50 11/17/16 04:00 50 11/17/16 04:00 70 11/17/16 03:08 80 20 50 11/17/16 02:00 63 21 87/52 Mechanical Ventilator 50 11/17/16 01:30 78 20 50 11/17/16 01:00 65 22 75/37 Mechanical Ventilator 50 11/17/16 00:57 50 11/17/16 00:44 98.0 87 21 85/49 Mechanical Ventilator 50 87 11/17/16 00:28 98.0 87 21 85/49 100 Mechanical Ventilator 50 11/17/16 00:24 87 30 85/49 100 Mechanical Ventilator 50 11/17/16 00:00 63 11/16/16 23:30 81 20 50 11/16/16 21:13 84 20 40 Intake and Output 11/17/16 11/18/16 19:00 07:00 Intake Total 470 ml Output Total 1470 ml Balance -1000 ml Intake Oral 50 ml IV Total 420 ml Output Urine Total 1470 ml Laboratory Tests 11/17/16 05:30: White Blood Count 4.8, Red Blood Count 3.10L, Hemoglobin 9.2L, Hematocrit 28.5L , Mean Corpuscular Volume 92, Mean Corpuscular Hemoglobin 29.5, Mean Corpuscular Hemoglobin Concent 32.2, Red Cell Distribution Width 15.5H, Platelet Count 150, Mean Platelet Volume 5.8L, Neutrophils (%) (Auto) 61.3, Lymphocytes (%) (Auto) 19.3L, Monocytes (%) (Auto) 12.4H, Eosinophils (%) (Auto ) 6.1H, Basophils (%) (Auto) 0.9, Sodium Level 136, Potassium Level 3.7, Chloride Level 101, Carbon Dioxide Level 25, Anion Gap 10, Blood Urea Nitrogen 63H, Creatinine 3.5H, Estimat Glomerular Filtration Rate , Glucose Level 92, Calcium Level 8.3L, Total Bilirubin 0.4, Aspartate Amino Transf (AST/SGOT) 11L, Alanine Aminotransferase (ALT/SGPT) < 6L, Alkaline Phosphatase 56, Pro-B-Type Natriuretic Peptide 70202U, Total Protein 5.9L, Albumin 1.9L, Globulin 4.0, Albumin/Globulin Ratio 0.5L Height (Feet): 5 Height (Inches): 6.00 Weight (Pounds): 410 General Appearance: mild distress, morbidly obese EENT: PERRL/EOMI, pharynx normal Neck: non-tender, supple Respiratory/Chest: decreased breath sounds Extremities: swelling Edema: 4+ Arm (L), 4+ Arm (R), 4+ Leg (L), 4+ Leg (R), 4+ Pedal (L), 4+ Pedal ( R), 4+ Generalized Edema: severe edema Neurologic: surgical manager II-XII grossly normal, oriented x 3, responsive Skin: warm/dry, rash Lymphatic: normal anterior cervical (L), normal anterior cervical (R), normal posterior cervical (L), normal posterior cervical (R), normal submandibular (L) , normal submandibular (R), normal supraclavicular (L), normal supraclavicular ( R), normal axillary (L), normal axillary (R), normal inguinal (L), normal inguinal (R), normal other Manny Nolan MD Nov 17, 2016 20:12
[2016-11-17] MEDS: Epogen (for non ESRD use) SUBQ SCH (20:17)
--- NOTE | 2016-11-17 21:47 | Consultation ---
DATE OF CONSULTATION: HEAD AND NECK SURGERY/ENT CONSULTATION CONSULTING PHYSICIAN: Fortunato Powell M.D. REQUESTING PHYSICIAN: Elidia Rene M.D. INDICATION FOR CONSULTATION: The patient is a 76-year-old female, who has an indwelling Trach for Pickwickian syndrome, respiratory failure, whose trach fell out. She ended up with an endotracheal tube placed in. I have been asked to do revision tracheostomy. PAST MEDICAL HISTORY: Significant for leukocytosis, pneumonia in the past, Pickwickian syndrome, obstructive sleep apnea, renal failure, congestive heart failure, gastrointestinal bleed, interstitial edema, pleural effusion on the left, acute on chronic respiratory failure, renal failure, and urinary tract infection. MEDICATIONS: Include Zaroxolyn, Procrit, vancomycin, morphine, allopurinol, Ceftin, Pravachol, Eliquis, Rocaltrol, vitamin B12, Colace, Neurontin, Protonix, MiraLAX, Renvela, Revatio, Tylenol, DuoNeb, and Ativan. ASSESSMENT: The patient needs a new trach. At the moment, she has a small endotracheal tube in there. It has been difficult to place because she is so big. PLAN: I have scheduled her for 2:30 on Tuesday two days from now on 11/19/2016 for revision tracheostomy. Thank you very much for asking my opinion in the care and treatment of this patient. Fortunato Powell M.D. DR: EDA JOB#: [id number] CC: LOBO
[2016-11-18] VITALS (24 sets, daily range): BP systolic 82–122; BP diastolic 42–72
[2016-11-18] MEDS: ceFAZolin 2gm/50ml Premix 50 ML IV SCH ×2 (03:40→14:48)
[2016-11-18 07:10] LABS: ALBUMIN/GLOBULIN RATIO 0.5 (1.0-2.7); ANION GAP 9 (5-15); ASPARTATE AMINO TRANSFERASE 14 U/L (15-37); BASOPHILS % (AUTO) 1.1 % (0.0-2.0); CALCIUM 8.6 MG/DL (8.5-10.1); CARBON DIOXIDE 26 MMOL/L (21-32); CHLORIDE 104 MMOL/L (98-107); CREATININE 3.6 MG/DL (0.55-1.30); EOSINOPHILS % (AUTO) 8.3 % (0.0-3.0); LYMPHOCYTES % (AUTO) 18.7 % (20.0-45.0); MEAN CORPUSCULAR HGB CONC 31.3 G/DL (32.0-36.0); MEAN CORPUSCULAR VOLUME 92 FL (80-99); MEAN PLATELET VOLUME 5.6 FL (6.5-10.1); MONOCYTES % (AUTO) 12.9 % (1.0-10.0); NEUTROPHILS % (AUTO) 58.9 % (45.0-75.0); PLATELET COUNT 170 K/UL (150-450); POTASSIUM 3.8 MMOL/L (3.5-5.1); RED BLOOD COUNT 3.35 M/UL (4.20-5.40); RED CELL DISTRIBUTION WIDTH 15.4 % (11.6-14.8); SODIUM 139 MMOL/L (136-145); TOTAL PROTEIN 6.4 G/DL (6.4-8.2); WHITE BLOOD COUNT 5.6 K/UL (4.8-10.8)
[2016-11-18 08:16] LABS: ALANINE AMINOTRANSFERASE < 6 U/L (12-78)
[2016-11-18] MEDS: Morphine Sulfate 10mg/ml Inj IVP PRN ×3 (09:10→21:49)
[2016-11-18] MEDS: Docusate 100mg cap ORAL SCH ×2 (09:10→17:33)
[2016-11-18] MEDS: Vitamin B-12 500mcg tab ORAL SCH (09:11)
[2016-11-18] MEDS: Calcitriol 0.25mcg Cap ORAL SCH (09:11)
[2016-11-18] MEDS: Revatio 20mg tab ORAL SCH ×3 (09:11→17:33)
[2016-11-18] MEDS: Miralax 17gm pkt ORAL SCH (09:11)
[2016-11-18] MEDS: Eliquis 2.5mg tablet ORAL SCH ×2 (09:11→17:33)
[2016-11-18] MEDS: Pantoprazole Inj IVP SCH (09:12)
--- NOTE | 2016-11-18 11:46 | Diagnostic Imaging Report ---
Indication: DYSPNEA Technique: One view of the chest Comparison: 11/17/2016 Findings: Stable satisfactory position of tracheostomy. The heart is enlarged. Allowing for technical differences, probably unchanged bilateral interstitial and alveolar parenchymal disease, predominantly basilar. No significant interim change Impression: Unchanged, over one day, findings as above.
--- NOTE | 2016-11-18 13:05 | Pulmonolgy Critical Care Note ---
Critical Care - Asmt/Plan Problems: (1) Acute and chronic respiratory failure (2) Anasarca (3) ATN (acute tubular necrosis) (4) Atrial fibrillation (5) Morbid obesity (6) Pickwickian syndrome Respiratory: monitor respiratory rate, adjust FIO2, CXR Cardiac: continue to monitor HR/BP Renal: F/U I&O, keep IV fluid, check electrolytes Infectious Disease: check cultures Gastrointestinal: continue feedings/current rate Endocrine: check HgA1C, continue sliding scale insulin Hematologic: monitor H/H, transfuse if hgb<8.5 Neurologic: PRN Ativan, PRN Morphine, keep patient comfortable Affect: PRN ativan Prophylaxis: Protonix 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: nurses, consultants, 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 - Objective Last 24 Hour Vital Signs Date Time Temp Pulse Resp B/P (MAP) Pulse Ox O2 Delivery O2 Flow Rate FiO2 11/18/16 12:32 60 20 50 11/18/16 12:00 68 11/18/16 12:00 98.5 68 24 84/43 98 Mechanical Ventilator 50 11/18/16 12:00 50 11/18/16 11:07 20 50 11/18/16 11:00 67 20 83/46 98 Mechanical Ventilator 50 11/18/16 10:00 68 20 82/44 97 Mechanical Ventilator 50 11/18/16 09:40 98.1 11/18/16 09:18 20 50 11/18/16 09:00 71 22 86/72 99 Mechanical Ventilator 50 11/18/16 08:00 98.1 70 20 98/52 98 Mechanical Ventilator 50 11/18/16 08:00 72 11/18/16 08:00 50 11/18/16 07:20 21 50 11/18/16 07:00 67 20 95/42 96 Mechanical Ventilator 50 11/18/16 06:00 71 22 87/44 96 Mechanical Ventilator 50 11/18/16 05:20 21 50 11/18/16 05:00 70 22 87/44 96 Mechanical Ventilator 50 11/18/16 04:00 73 11/18/16 04:00 98.0 83 21 84/47 97 Mechanical Ventilator 50 11/18/16 04:00 50 11/18/16 03:25 27 50 11/18/16 03:00 69 20 97/50 96 Mechanical Ventilator 50 11/18/16 02:00 64 22 91/56 99 Mechanical Ventilator 50 11/18/16 01:21 21 50 11/18/16 01:00 66 23 97/64 98 Mechanical Ventilator 50 11/18/16 00:00 83 11/18/16 00:00 98.0 83 18 92/56 97 Mechanical Ventilator 50 11/18/16 00:00 50 11/17/16 23:26 20 50 11/17/16 23:00 70 20 92/56 97 Mechanical Ventilator 50 11/17/16 22:00 70 20 119/88 98 Mechanical Ventilator 50 11/17/16 21:09 20 50 11/17/16 21:00 71 20 79/38 96 Mechanical Ventilator 50 11/17/16 20:00 98.1 71 20 98/40 96 Mechanical Ventilator 50 11/17/16 20:00 50 11/17/16 20:00 75 11/17/16 19:17 20 50 11/17/16 19:00 68 20 82/43 96 Mechanical Ventilator 50 11/17/16 18:00 68 20 91/49 99 Mechanical Ventilator 50 11/17/16 17:05 20 50 11/17/16 17:00 72 25 101/53 96 Mechanical Ventilator 50 11/17/16 16:00 98.5 70 22 89/52 98 Mechanical Ventilator 50 11/17/16 16:00 68 11/17/16 16:00 50 11/17/16 15:10 20 50 11/17/16 15:00 84 22 91/46 98 Mechanical Ventilator 50 11/17/16 14:00 68 22 88/42 98 Mechanical Ventilator 50 Status: awake Condition: critical, grave Lungs: chest wall tender Heart: HR/BP stable, HR/BP unstable Abdomen: soft, non-tender Extremities: no C/C/E, edema Decubiti: location Critical Care - Subjective ROS Limited/Unobtainable: No Interval Events: scheduled for tracheostomy in morning Condition: critical FI02: 50 Vent Support Breath Rate: 20 Vent Support Mode: AC Vent Tidal Volume: 600 Sputum Amount: Small PEEP: 5.0 PIP: 65 I&O: Intake and Output 11/18/16 11/19/16 19:00 07:00 Intake Total 50 ml Output Total 660 ml Balance -610 ml IV Total 50 ml Output Urine Total 660 ml CXR: no change ET-Tube: 6.0 ET Position: 15 Labs: Laboratory Tests Test 11/18/16 05:40 White Blood Count 5.6 K/UL (4.8-10.8) Red Blood Count 3.35 M/UL (4.20-5.40) L Hemoglobin 9.7 G/DL (12.0-16.0) L Hematocrit 31.0 % (37.0-47.0) L Mean Corpuscular Volume 92 FL (80-99) Mean Corpuscular Hemoglobin 29.0 PG (27.0-31.0) Mean Corpuscular Hemoglobin Concent 31.3 G/DL (32.0-36.0) L Red Cell Distribution Width 15.4 % (11.6-14.8) H Platelet Count 170 K/UL (150-450) Mean Platelet Volume 5.6 FL (6.5-10.1) L Neutrophils (%) (Auto) 58.9 % (45.0-75.0) Lymphocytes (%) (Auto) 18.7 % (20.0-45.0) L Monocytes (%) (Auto) 12.9 % (1.0-10.0) H Eosinophils (%) (Auto) 8.3 % (0.0-3.0) H Basophils (%) (Auto) 1.1 % (0.0-2.0) Sodium Level 139 MMOL/L (136-145) Potassium Level 3.8 MMOL/L (3.5-5.1) Chloride Level 104 MMOL/L (98-107) Carbon Dioxide Level 26 MMOL/L (21-32) Anion Gap 9 (5-15) Blood Urea Nitrogen 61 mg/dL (7-18) H Creatinine 3.6 MG/DL (0.55-1.30) H Estimat Glomerular Filtration Rate mL/min (>60) Glucose Level 80 MG/DL (74-106) Calcium Level 8.6 MG/DL (8.5-10.1) Total Bilirubin 0.4 MG/DL (0.2-1.0) Aspartate Amino Transf (AST/SGOT) 14 U/L (15-37) L Alanine Aminotransferase (ALT/SGPT) < 6 U/L (12-78) L Alkaline Phosphatase 62 U/L (46-116) Pro-B-Type Natriuretic Peptide 43793 (0-125) H Total Protein 6.4 G/DL (6.4-8.2) Albumin 2.1 G/DL (3.4-5.0) L Globulin 4.3 g/dL Albumin/Globulin Ratio 0.5 (1.0-2.7) L Random Vancomycin Level 22.8 ug/mL ARASH MIRANDA Nov 18, 2016 13:05
--- NOTE | 2016-11-18 13:20 | Anethesia Preoperative Eval ---
Anesthesia Pre-op PMH/ROS General Date of Evaluation: Nov 18, 2016 Anesthesiologist: Man ASA Score: ASA 4 Mallampati Score Class I : Soft palate, uvula, fauces, pillars visible Class II: Soft palate, uvula, fauces visible Class III: Soft palate, base of uvula visible Class IV: Only hard plate visible Mallampati Classification: Class II Surgeon: Sherry Diagnosis: Respiratory failure Surgical Procedure: Revision tracheostomy Anesthesia History: none Family History: no anesthesia problems Allergies: Coded Allergies: AMOXICILLIN (Verified Allergy, Mild, RASH, 09/30/16) PENICILLINS (Unverified Allergy, Unknown, 09/30/16) Medications: see eMAR Past Medical History Cardiovascular: Reports: arrhythmia - afib, other - CHF, Denies: HTN, CAD, GA, valve dz Pulmonary: Reports: MINA, other - respiratory failure, s/p trach placement and then incidental removal, now orally intubated, Denies: asthma, COPD Gastrointestinal/Genitourinary: Reports: GERD, ESRD, Denies: CRI, other Neurologic/Psychiatric: Reports: other - pickwickian syndrome, seizure d/o, Denies: dementia, CVA, depression/anxiety, TIA Endocrine: Reports: DM, Denies: hypothyroidism, steroids, other HEENT: Denies: cataract (L), cataract (R), glaucoma, NAVAJO (L), NAVAJO (R), other Hematology/Immune: Reports: anemia - chronic, other - Right breast cancer, Denies: DVT, bleeding disorder Musculoskeletal/Integumentary: Denies: OA, RA, DJD, DDD, edema, other Other: obesity - morbid PSxH Narrative: trach Anesthesia Pre-op Phys. Exam Physician Exam Last Vital Signs Date Time Temp Pulse Resp B/P (MAP) Pulse Ox O2 Delivery O2 Flow Rate FiO2 11/18/16 13:00 67 20 95/60 97 Mechanical Ventilator 50 11/18/16 12:00 98.5 Constitutional: NAD Neurologic: other - unable to follow commands Cardiovascular: RRR Respiratory: other - dimished breath sounds bilaterally Airway Exam Mallampati Score: Class IV MO: limited ROM: limited Anesthesia Pre-op A/P Labs Hematology Test 11/18/16 05:40 White Blood Count 5.6 K/UL (4.8-10.8) Red Blood Count 3.35 M/UL (4.20-5.40) L Hemoglobin 9.7 G/DL (12.0-16.0) L Hematocrit 31.0 % (37.0-47.0) L Mean Corpuscular Volume 92 FL (80-99) Mean Corpuscular Hemoglobin 29.0 PG (27.0-31.0) Mean Corpuscular Hemoglobin Concent 31.3 G/DL (32.0-36.0) L Red Cell Distribution Width 15.4 % (11.6-14.8) H Platelet Count 170 K/UL (150-450) Mean Platelet Volume 5.6 FL (6.5-10.1) L Neutrophils (%) (Auto) 58.9 % (45.0-75.0) Lymphocytes (%) (Auto) 18.7 % (20.0-45.0) L Monocytes (%) (Auto) 12.9 % (1.0-10.0) H Eosinophils (%) (Auto) 8.3 % (0.0-3.0) H Basophils (%) (Auto) 1.1 % (0.0-2.0) Chemistry Test 11/18/16 05:40 Sodium Level 139 MMOL/L (136-145) Potassium Level 3.8 MMOL/L (3.5-5.1) Chloride Level 104 MMOL/L (98-107) Carbon Dioxide Level 26 MMOL/L (21-32) Anion Gap 9 (5-15) Blood Urea Nitrogen 61 mg/dL (7-18) H Creatinine 3.6 MG/DL (0.55-1.30) H Estimat Glomerular Filtration Rate mL/min (>60) Glucose Level 80 MG/DL (74-106) Calcium Level 8.6 MG/DL (8.5-10.1) Total Bilirubin 0.4 MG/DL (0.2-1.0) Aspartate Amino Transf (AST/SGOT) 14 U/L (15-37) L Alanine Aminotransferase (ALT/SGPT) < 6 U/L (12-78) L Alkaline Phosphatase 62 U/L (46-116) Pro-B-Type Natriuretic Peptide 34190 (0-125) H Total Protein 6.4 G/DL (6.4-8.2) Albumin 2.1 G/DL (3.4-5.0) L Globulin 4.3 g/dL Albumin/Globulin Ratio 0.5 (1.0-2.7) L Risk Assessment & Plan Assessment: ASA IV Plan: GA Status Change Before Surgery: No Pre-Antibiotics Drug: JUANITA MCLEOD M.D. Nov 18, 2016 13:20
--- NOTE | 2016-11-18 13:31 | General Progress Note ---
Assessment/Plan Assessment/Plan This is a 76-year-old, morbidly obese female, admitted with anasarca and cellulitis of the lower leg. The patient was admitted to the directr observation unit on the monitor with the following medical problems. now transfered to icu as of 11-14-16 1. Anasarca. She appears to be markedly swollen. She will need diuresis. Place the patient on Lasix 20 mg intravenous for now q.12 hours. Cardiology and Pulmonary on the case. We will follow orders. Check laboratory studies daily. conitnue lasix drip 10 mg per hour, discussed with / Zoila may need dialysis if she doesn't respond to diuresis, 24 hour urine collection ordered 2. Chronic hypercapnic respiratory failure. Continue with vent support per Pulmonary. 3 anemia. s./p transfusion of PRBC Continue monitoring CBC daily. 4. Pulmonary hypertension. Continue with Eliquis 2.5 mg twice a day and medications per Pulmonary and Cardiology. hold #Eloquis if bleeding suspected 5. Chronic kidney disease. We will monitor BUN and creatinine. Gentle diuresis for now. Nephrology has been consulted. further workup per nephrology. avoid nephrotoxic agents 6. DVT prophylaxis. The patient is on Eliquis. The patient is Full Code. patient is severely volume overloaded will transfer to ICU for closer monitoring., ABG prn, chest xray and daily weights continue duresis, monitor bp , consider midodrin 5 mg tid if pressure drop, am labs discussed at length with icu nursing staff and consultants elevate right arm with pillow while reclining trach to be refitted on tuesday family requesting for her to be transfered to a different facility after discharge, will discuss with Dr. Álvarez. ofcourse it all depends on bed availability and insurance issues Subjective Date patient seen: Nov 18, 2016 ROS Limited/Unobtainable: Yes Allergies: Coded Allergies: AMOXICILLIN (Verified Allergy, Mild, RASH, 09/30/16) PENICILLINS (Unverified Allergy, Unknown, 09/30/16) Objective Last 24 Hour Vital Signs Date Time Temp Pulse Resp B/P (MAP) Pulse Ox O2 Delivery O2 Flow Rate FiO2 11/18/16 13:00 67 20 95/60 97 Mechanical Ventilator 50 11/18/16 12:32 60 20 50 11/18/16 12:00 68 11/18/16 12:00 98.5 68 24 84/43 98 Mechanical Ventilator 50 11/18/16 12:00 50 11/18/16 11:07 20 50 11/18/16 11:00 67 20 83/46 98 Mechanical Ventilator 50 11/18/16 10:00 68 20 82/44 97 Mechanical Ventilator 50 11/18/16 09:40 98.1 11/18/16 09:18 20 50 11/18/16 09:00 71 22 86/72 99 Mechanical Ventilator 50 11/18/16 08:00 98.1 70 20 98/52 98 Mechanical Ventilator 50 11/18/16 08:00 72 11/18/16 08:00 50 11/18/16 07:20 21 50 11/18/16 07:00 67 20 95/42 96 Mechanical Ventilator 50 11/18/16 06:00 71 22 87/44 96 Mechanical Ventilator 50 11/18/16 05:20 21 50 11/18/16 05:00 70 22 87/44 96 Mechanical Ventilator 50 11/18/16 04:00 73 11/18/16 04:00 98.0 83 21 84/47 97 Mechanical Ventilator 50 11/18/16 04:00 50 11/18/16 03:25 27 50 11/18/16 03:00 69 20 97/50 96 Mechanical Ventilator 50 11/18/16 02:00 64 22 91/56 99 Mechanical Ventilator 50 11/18/16 01:21 21 50 11/18/16 01:00 66 23 97/64 98 Mechanical Ventilator 50 11/18/16 00:00 83 11/18/16 00:00 98.0 83 18 92/56 97 Mechanical Ventilator 50 11/18/16 00:00 50 11/17/16 23:26 20 50 11/17/16 23:00 70 20 92/56 97 Mechanical Ventilator 50 11/17/16 22:00 70 20 119/88 98 Mechanical Ventilator 50 11/17/16 21:09 20 50 11/17/16 21:00 71 20 79/38 96 Mechanical Ventilator 50 11/17/16 20:00 98.1 71 20 98/40 96 Mechanical Ventilator 50 11/17/16 20:00 50 11/17/16 20:00 75 11/17/16 19:17 20 50 11/17/16 19:00 68 20 82/43 96 Mechanical Ventilator 50 11/17/16 18:00 68 20 91/49 99 Mechanical Ventilator 50 11/17/16 17:05 20 50 11/17/16 17:00 72 25 101/53 96 Mechanical Ventilator 50 11/17/16 16:00 98.5 70 22 89/52 98 Mechanical Ventilator 50 11/17/16 16:00 68 11/17/16 16:00 50 11/17/16 15:10 20 50 11/17/16 15:00 84 22 91/46 98 Mechanical Ventilator 50 11/17/16 14:00 68 22 88/42 98 Mechanical Ventilator 50 Intake and Output 11/18/16 11/19/16 19:00 07:00 Intake Total 60 ml Output Total 660 ml Balance -600 ml IV Total 60 ml Output Urine Total 660 ml Laboratory Tests 11/18/16 05:40: White Blood Count 5.6, Red Blood Count 3.35L, Hemoglobin 9.7L, Hematocrit 31.0L , Mean Corpuscular Volume 92, Mean Corpuscular Hemoglobin 29.0, Mean Corpuscular Hemoglobin Concent 31.3L, Red Cell Distribution Width 15.4H, Platelet Count 170, Mean Platelet Volume 5.6L, Neutrophils (%) (Auto) 58.9, Lymphocytes (%) (Auto) 18.7L, Monocytes (%) (Auto) 12.9H, Eosinophils (%) (Auto ) 8.3H, Basophils (%) (Auto) 1.1, Sodium Level 139, Potassium Level 3.8, Chloride Level 104, Carbon Dioxide Level 26, Anion Gap 9, Blood Urea Nitrogen 61H, Creatinine 3.6H, Estimat Glomerular Filtration Rate , Glucose Level 80, Calcium Level 8.6, Total Bilirubin 0.4, Aspartate Amino Transf (AST/SGOT) 14L, Alanine Aminotransferase (ALT/SGPT) < 6L, Alkaline Phosphatase 62, Pro-B-Type Natriuretic Peptide 12487P, Total Protein 6.4, Albumin 2.1L, Globulin 4.3, Albumin/Globulin Ratio 0.5L, Random Vancomycin Level 22.8 Height (Feet): 5 Height (Inches): 6.00 Weight (Pounds): 406 General Appearance: morbidly obese EENT: PERRL/EOMI, pharynx normal Neck: non-tender, supple Cardiovascular: normal rate, regular rhythm, no gallop/murmur, no JVD Respiratory/Chest: decreased breath sounds Abdomen: non tender, soft, no mass Extremities: swelling Edema: 4+ Arm (L), 4+ Arm (R), 4+ Leg (L), 4+ Leg (R), 4+ Pedal (L), 4+ Pedal ( R), 4+ Generalized Edema: severe edema Neurologic: spinner continuous II-XII grossly normal, oriented x 3, responsive Skin: rash Lymphatic: normal anterior cervical (L), normal anterior cervical (R), normal posterior cervical (L), normal posterior cervical (R), normal submandibular (L) , normal submandibular (R), normal supraclavicular (L), normal supraclavicular ( R), normal axillary (L), normal axillary (R), normal inguinal (L), normal inguinal (R), normal other Manny Nolan MD Nov 18, 2016 13:31
--- NOTE | 2016-11-18 13:56 | General Progress Note ---
Assessment/Plan Status: stable Status Narrative Cr same Assessment/Plan Cellulitis BLE and R arm- in the setting of chronic leg edema- r/o DVT Anasarca/ bilateral leg lymphedema CKD- and acute renal failure - Cr 3.1 unchanged since last admission- Acute respiratory failure s/p Trach Obese COPD , CHF, Diastolic MINA UTI Anemia GI Bleed, GI bleeding At Fib Pulm HTN h/o Low B12 plan: zaroxyllin- lasix drip add EPOGEN 24 H urine collection in process: CrCl 6 Monitor renal parameters- optimize cardiac and pulm status avoid nephrotoxics- pulmonary support- transfuse as needed Subjective ROS Limited/Unobtainable: Yes Allergies: Coded Allergies: AMOXICILLIN (Verified Allergy, Mild, RASH, 09/30/16) PENICILLINS (Unverified Allergy, Unknown, 09/30/16) Objective Last 24 Hour Vital Signs Date Time Temp Pulse Resp B/P (MAP) Pulse Ox O2 Delivery O2 Flow Rate FiO2 11/18/16 13:00 67 20 95/60 97 Mechanical Ventilator 50 11/18/16 12:32 60 20 50 11/18/16 12:00 68 11/18/16 12:00 98.5 68 24 84/43 98 Mechanical Ventilator 50 11/18/16 12:00 50 11/18/16 11:07 20 50 11/18/16 11:00 67 20 83/46 98 Mechanical Ventilator 50 11/18/16 10:00 68 20 82/44 97 Mechanical Ventilator 50 11/18/16 09:40 98.1 11/18/16 09:18 20 50 11/18/16 09:00 71 22 86/72 99 Mechanical Ventilator 50 11/18/16 08:00 98.1 70 20 98/52 98 Mechanical Ventilator 50 11/18/16 08:00 72 11/18/16 08:00 50 11/18/16 07:20 21 50 11/18/16 07:00 67 20 95/42 96 Mechanical Ventilator 50 11/18/16 06:00 71 22 87/44 96 Mechanical Ventilator 50 11/18/16 05:20 21 50 11/18/16 05:00 70 22 87/44 96 Mechanical Ventilator 50 11/18/16 04:00 73 11/18/16 04:00 98.0 83 21 84/47 97 Mechanical Ventilator 50 11/18/16 04:00 50 11/18/16 03:25 27 50 11/18/16 03:00 69 20 97/50 96 Mechanical Ventilator 50 11/18/16 02:00 64 22 91/56 99 Mechanical Ventilator 50 11/18/16 01:21 21 50 11/18/16 01:00 66 23 97/64 98 Mechanical Ventilator 50 11/18/16 00:00 83 11/18/16 00:00 98.0 83 18 92/56 97 Mechanical Ventilator 50 11/18/16 00:00 50 11/17/16 23:26 20 50 11/17/16 23:00 70 20 92/56 97 Mechanical Ventilator 50 11/17/16 22:00 70 20 119/88 98 Mechanical Ventilator 50 11/17/16 21:09 20 50 11/17/16 21:00 71 20 79/38 96 Mechanical Ventilator 50 11/17/16 20:00 98.1 71 20 98/40 96 Mechanical Ventilator 50 11/17/16 20:00 50 11/17/16 20:00 75 11/17/16 19:17 20 50 11/17/16 19:00 68 20 82/43 96 Mechanical Ventilator 50 11/17/16 18:00 68 20 91/49 99 Mechanical Ventilator 50 11/17/16 17:05 20 50 11/17/16 17:00 72 25 101/53 96 Mechanical Ventilator 50 11/17/16 16:00 98.5 70 22 89/52 98 Mechanical Ventilator 50 11/17/16 16:00 68 11/17/16 16:00 50 11/17/16 15:10 20 50 11/17/16 15:00 84 22 91/46 98 Mechanical Ventilator 50 11/17/16 14:00 68 22 88/42 98 Mechanical Ventilator 50 Intake and Output 11/18/16 11/19/16 19:00 07:00 Intake Total 60 ml Output Total 660 ml Balance -600 ml IV Total 60 ml Output Urine Total 660 ml Laboratory Tests 11/18/16 05:40: White Blood Count 5.6, Red Blood Count 3.35L, Hemoglobin 9.7L, Hematocrit 31.0L , Mean Corpuscular Volume 92, Mean Corpuscular Hemoglobin 29.0, Mean Corpuscular Hemoglobin Concent 31.3L, Red Cell Distribution Width 15.4H, Platelet Count 170, Mean Platelet Volume 5.6L, Neutrophils (%) (Auto) 58.9, Lymphocytes (%) (Auto) 18.7L, Monocytes (%) (Auto) 12.9H, Eosinophils (%) (Auto ) 8.3H, Basophils (%) (Auto) 1.1, Sodium Level 139, Potassium Level 3.8, Chloride Level 104, Carbon Dioxide Level 26, Anion Gap 9, Blood Urea Nitrogen 61H, Creatinine 3.6H, Estimat Glomerular Filtration Rate , Glucose Level 80, Calcium Level 8.6, Total Bilirubin 0.4, Aspartate Amino Transf (AST/SGOT) 14L, Alanine Aminotransferase (ALT/SGPT) < 6L, Alkaline Phosphatase 62, Pro-B-Type Natriuretic Peptide 20656M, Total Protein 6.4, Albumin 2.1L, Globulin 4.3, Albumin/Globulin Ratio 0.5L, Random Vancomycin Level 22.8 Height (Feet): 5 Height (Inches): 6.00 Weight (Pounds): 406 General Appearance: no apparent distress Cardiovascular: regular rhythm Respiratory/Chest: decreased breath sounds Abdomen: soft Edema: 2+ Arm (L), 2+ Arm (R), 2+ Leg (L), 2+ Leg (R), 2+ Pedal (L), 2+ Pedal ( R), 2+ Generalized Objective BP low , but doubtful measurement COURTNEY LOPEZ Nov 18, 2016 13:56
--- NOTE | 2016-11-18 15:47 | Infectious Diseases Prog Note ---
Assessment/Plan Assessment/Plan Abx: IV Vancomycin 11/11-11/12; 11/17- IV Cefepime 11/11-11/12 IV Ancef 11/12- Flagyl x1 11/11 Assesment: Cellulitis BLE and R arm- in the setting of chronic leg edema- Limited Venous duplex BLE (non diagnostic), no DVT R arm -Bcx Neg Anasarca/ bilateral leg lymphedema -CXR: Limited evaluation. Suspected interstitial edema Afebrile, no leukocytosis REnal insufficiency COPD Diastolic CHF chronic resp failure, vent/trach dependent, Gtbue, pAfib, pleural effusion, MINA , CKD, GERD, morbid obesity, [place] resident Plan: -Continue Ancef for cellulitis (abx #/) and Continue IV Vancomycin #2 (added for additional gram positive coverage) -extremity elevation -edema management -f/u final Bcx -Monitor CBC/BMP, temperatures Thank you for this consultation. Will continue to follow along with you. 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 RN. Subjective Allergies: Coded Allergies: AMOXICILLIN (Verified Allergy, Mild, RASH, 09/30/16) PENICILLINS (Unverified Allergy, Unknown, 09/30/16) Subjective afebrile no leukocytosis remains in ICU Objective Vital Signs Last 24 Hour Vital Signs Date Time Temp Pulse Resp B/P (MAP) Pulse Ox O2 Delivery O2 Flow Rate FiO2 11/18/16 14:00 80 18 122/58 97 Mechanical Ventilator 40 11/18/16 13:00 67 20 95/60 97 Mechanical Ventilator 50 11/18/16 12:32 60 20 50 11/18/16 12:00 68 11/18/16 12:00 98.5 68 24 84/43 98 Mechanical Ventilator 50 11/18/16 12:00 50 11/18/16 11:07 20 50 11/18/16 11:00 67 20 83/46 98 Mechanical Ventilator 50 11/18/16 10:00 68 20 82/44 97 Mechanical Ventilator 50 11/18/16 09:40 98.1 11/18/16 09:18 20 50 11/18/16 09:00 71 22 86/72 99 Mechanical Ventilator 50 11/18/16 08:00 98.1 70 20 98/52 98 Mechanical Ventilator 50 11/18/16 08:00 72 11/18/16 08:00 50 11/18/16 07:20 21 50 11/18/16 07:00 67 20 95/42 96 Mechanical Ventilator 50 11/18/16 06:00 71 22 87/44 96 Mechanical Ventilator 50 11/18/16 05:20 21 50 11/18/16 05:00 70 22 87/44 96 Mechanical Ventilator 50 11/18/16 04:00 73 11/18/16 04:00 98.0 83 21 84/47 97 Mechanical Ventilator 50 11/18/16 04:00 50 11/18/16 03:25 27 50 11/18/16 03:00 69 20 97/50 96 Mechanical Ventilator 50 11/18/16 02:00 64 22 91/56 99 Mechanical Ventilator 50 11/18/16 01:21 21 50 11/18/16 01:00 66 23 97/64 98 Mechanical Ventilator 50 11/18/16 00:00 83 11/18/16 00:00 98.0 83 18 92/56 97 Mechanical Ventilator 50 11/18/16 00:00 50 11/17/16 23:26 20 50 11/17/16 23:00 70 20 92/56 97 Mechanical Ventilator 50 11/17/16 22:00 70 20 119/88 98 Mechanical Ventilator 50 11/17/16 21:09 20 50 11/17/16 21:00 71 20 79/38 96 Mechanical Ventilator 50 11/17/16 20:00 98.1 71 20 98/40 96 Mechanical Ventilator 50 11/17/16 20:00 50 11/17/16 20:00 75 11/17/16 19:17 20 50 11/17/16 19:00 68 20 82/43 96 Mechanical Ventilator 50 11/17/16 18:00 68 20 91/49 99 Mechanical Ventilator 50 11/17/16 17:05 20 50 11/17/16 17:00 72 25 101/53 96 Mechanical Ventilator 50 11/17/16 16:00 98.5 70 22 89/52 98 Mechanical Ventilator 50 11/17/16 16:00 68 11/17/16 16:00 50 Height (Feet): 5 Height (Inches): 6.00 Weight (Pounds): 406 Objective General Appearance: WD/WN HEENT: trach in palce, Respiratory/Chest: chest wall non-tender, lungs clear Cardiovascular/Chest: normal peripheral pulses, normal rate Abdomen: normal bowel sounds, non tender Ext: anasarca; R > L LE swelling, both legs with blanching erythema anteriorly from distal leg up to below knee, +warmth, non TTP, no drainage R arm swelling, erythematous,. background changes of chronic lymphedema on b/l legs; minimally improved reviewed Laboratory Tests Test 11/18/16 05:40 White Blood Count 5.6 K/UL (4.8-10.8) Red Blood Count 3.35 M/UL (4.20-5.40) L Hemoglobin 9.7 G/DL (12.0-16.0) L Hematocrit 31.0 % (37.0-47.0) L Mean Corpuscular Volume 92 FL (80-99) Mean Corpuscular Hemoglobin 29.0 PG (27.0-31.0) Mean Corpuscular Hemoglobin Concent 31.3 G/DL (32.0-36.0) L Red Cell Distribution Width 15.4 % (11.6-14.8) H Platelet Count 170 K/UL (150-450) Mean Platelet Volume 5.6 FL (6.5-10.1) L Neutrophils (%) (Auto) 58.9 % (45.0-75.0) Lymphocytes (%) (Auto) 18.7 % (20.0-45.0) L Monocytes (%) (Auto) 12.9 % (1.0-10.0) H Eosinophils (%) (Auto) 8.3 % (0.0-3.0) H Basophils (%) (Auto) 1.1 % (0.0-2.0) Sodium Level 139 MMOL/L (136-145) Potassium Level 3.8 MMOL/L (3.5-5.1) Chloride Level 104 MMOL/L (98-107) Carbon Dioxide Level 26 MMOL/L (21-32) Anion Gap 9 (5-15) Blood Urea Nitrogen 61 mg/dL (7-18) H Creatinine 3.6 MG/DL (0.55-1.30) H Estimat Glomerular Filtration Rate mL/min (>60) Glucose Level 80 MG/DL (74-106) Calcium Level 8.6 MG/DL (8.5-10.1) Total Bilirubin 0.4 MG/DL (0.2-1.0) Aspartate Amino Transf (AST/SGOT) 14 U/L (15-37) L Alanine Aminotransferase (ALT/SGPT) < 6 U/L (12-78) L Alkaline Phosphatase 62 U/L (46-116) Pro-B-Type Natriuretic Peptide 47312 (0-125) H Total Protein 6.4 G/DL (6.4-8.2) Albumin 2.1 G/DL (3.4-5.0) L Globulin 4.3 g/dL Albumin/Globulin Ratio 0.5 (1.0-2.7) L Random Vancomycin Level 22.8 ug/mL Current Medications Medications (Trade) Dose Ordered Sig/Kalyn Route PRN Reason Start Time Stop Time Status Last Admin Dose Admin Acetaminophen (Tylenol) 650 mg Q4H PRN ORAL Mild Pain/Temp > 100.5 11/14/16 08:00 12/12/16 07:59 Albuterol Sulfate (Proventil) 2.5 mg Q6H PRN HHN Shortness of Breath 11/14/16 08:00 11/19/16 07:59 Albuterol/ Ipratropium (DuoNeb 0.5-3(2.5)mg/3ml) 3 ml Q6H PRN HHN Shortness of Breath 11/14/16 08:00 11/19/16 07:59 Allopurinol (Allopurinol) 300 mg DAILY ORAL 11/16/16 10:00 12/16/16 09:59 11/18/16 09:11 Apixaban (Eliquis) 2.5 mg BID ORAL 11/14/16 09:00 12/12/16 08:59 11/18/16 09:11 Calcitriol (Rocatrol) 0.25 mcg DAILY ORAL 11/14/16 09:00 12/12/16 08:59 11/18/16 09:11 Cefazolin Sodium 50 ml @ 100 mls/hr Q12HR@0300,1500 IV 11/15/16 15:00 11/22/16 14:59 11/18/16 14:48 Cyanocobalamin (Vitamin B-12) 3,000 mcg DAILY ORAL 11/14/16 09:00 12/12/16 08:59 11/18/16 09:11 Docusate Sodium (Colace) 100 mg TWICE A DAY ORAL 11/14/16 09:00 12/12/16 08:59 11/18/16 09:10 Epoetin Santos (Procrit (for non ESRD use)) 10,000 units TUE-TUE-TUE SUBQ 11/17/16 21:00 12/17/16 20:59 11/17/16 20:17 Folic Acid (Folate) 1 mg DAILY ORAL 11/14/16 09:00 12/12/16 08:59 11/18/16 09:11 Furosemide 100 mg/ Dextrose 100 ml @ 10 mls/hr Q10H IV 11/15/16 15:00 12/15/16 14:59 11/18/16 12:43 Gabapentin (Neurontin) 600 mg BID ORAL 11/14/16 09:00 12/14/16 08:59 11/18/16 09:11 Lorazepam (Ativan 2mg/ml 1ml) 2 mg Q2H PRN IV For Anxiety 11/14/16 08:00 11/21/16 07:59 11/16/16 06:32 Metolazone (Zaroxolyn) 10 mg DAILY ORAL 11/18/16 09:00 12/18/16 08:59 11/18/16 09:11 Morphine Sulfate (Morphine Sulfate) 6 mg Q3H PRN IVP Severe Pain (Pain Scale 7-10) 11/17/16 12:00 11/19/16 11:59 11/18/16 09:10 Pantoprazole (Protonix) 40 mg DAILY IVP 11/14/16 09:00 12/12/16 08:59 11/18/16 09:12 Polyethylene Glycol (Miralax) 17 gm DAILY ORAL 11/14/16 09:00 12/12/16 08:59 11/18/16 09:11 Pravastatin Sodium (Pravachol) 20 mg BEDTIME ORAL 11/14/16 21:00 12/12/16 20:59 11/17/16 20:16 Sevelamer Carbonate (Renvela) 800 mg THREE TIMES A DAY ORAL 11/14/16 09:00 12/12/16 08:59 11/18/16 12:43 Sildenafil Citrate (Revatio) 20 mg THREE TIMES A DAY ORAL 11/14/16 09:00 12/12/16 08:59 11/18/16 12:43 Vancomycin HCl (Vanco rx to dose) 1 ea DAILY PRN MISC Per rx protocol 11/17/16 13:15 12/17/16 13:14 Vancomycin HCl/ Dextrose 250 ml @ 125 mls/hr ONCE ONCE IVPB 11/18/16 22:00 11/18/16 23:59 Danielle Guo M.D. Nov 18, 2016 15:47
--- NOTE | 2016-11-18 19:41 | General Progress Note ---
Assessment/Plan Assessment/Plan ASSESSMENT: 1. Anemia secondary to chronic disease. Continue to closely monitor. Work up reviewed --> s/p transfusion. watch counts, transfuse if hgb is below 8 2. Anemia of kidney disease. 3. History of breast cancer, currently on letrozole. 4. Chronic ventilator dependant, to receive trach 5. Permanent atrial fibrillation. She is on apixaban. 6. Cellulitis and chronic lymphedema of the bilateral lower extremities. Continue to monitor. On abx per id service 7. Congestive heart failure. Subjective ROS Limited/Unobtainable: Yes Allergies: Coded Allergies: AMOXICILLIN (Verified Allergy, Mild, RASH, 09/30/16) PENICILLINS (Unverified Allergy, Unknown, 09/30/16) Subjective afebrile, HH stable Objective Last 24 Hour Vital Signs Date Time Temp Pulse Resp B/P (MAP) Pulse Ox O2 Delivery O2 Flow Rate FiO2 11/18/16 19:00 69 22 96/52 98 Mechanical Ventilator 50 11/18/16 18:40 75 20 50 11/18/16 18:04 98.5 11/18/16 18:00 78 24 104/59 99 Mechanical Ventilator 50 11/18/16 17:08 72 20 50 11/18/16 17:00 69 20 95/50 98 Mechanical Ventilator 50 11/18/16 16:00 98.5 70 22 84/43 98 Mechanical Ventilator 50 11/18/16 16:00 71 11/18/16 16:00 50 11/18/16 15:16 20 50 11/18/16 15:00 70 20 122/65 98 Mechanical Ventilator 50 11/18/16 14:00 80 18 122/58 97 Mechanical Ventilator 50 11/18/16 13:00 67 20 95/60 97 Mechanical Ventilator 50 11/18/16 12:32 60 20 50 11/18/16 12:00 68 11/18/16 12:00 98.5 68 24 84/43 98 Mechanical Ventilator 50 11/18/16 12:00 50 11/18/16 11:07 20 50 11/18/16 11:00 67 20 83/46 98 Mechanical Ventilator 50 11/18/16 10:00 68 20 82/44 97 Mechanical Ventilator 50 11/18/16 09:18 20 50 11/18/16 09:00 71 22 86/72 99 Mechanical Ventilator 50 11/18/16 08:00 98.1 70 20 98/52 98 Mechanical Ventilator 50 11/18/16 08:00 72 11/18/16 08:00 50 11/18/16 07:20 21 50 11/18/16 07:00 67 20 95/42 96 Mechanical Ventilator 50 11/18/16 06:00 71 22 87/44 96 Mechanical Ventilator 50 11/18/16 05:20 21 50 11/18/16 05:00 70 22 87/44 96 Mechanical Ventilator 50 11/18/16 04:00 73 11/18/16 04:00 98.0 83 21 84/47 97 Mechanical Ventilator 50 11/18/16 04:00 50 11/18/16 03:25 27 50 11/18/16 03:00 69 20 97/50 96 Mechanical Ventilator 50 11/18/16 02:00 64 22 91/56 99 Mechanical Ventilator 50 11/18/16 01:21 21 50 11/18/16 01:00 66 23 97/64 98 Mechanical Ventilator 50 11/18/16 00:00 83 11/18/16 00:00 98.0 83 18 92/56 97 Mechanical Ventilator 50 11/18/16 00:00 50 11/17/16 23:26 20 50 11/17/16 23:00 70 20 92/56 97 Mechanical Ventilator 50 11/17/16 22:00 70 20 119/88 98 Mechanical Ventilator 50 11/17/16 21:09 20 50 11/17/16 21:00 71 20 79/38 96 Mechanical Ventilator 50 11/17/16 20:00 98.1 71 20 98/40 96 Mechanical Ventilator 50 11/17/16 20:00 50 11/17/16 20:00 75 Intake and Output 11/18/16 11/19/16 19:00 07:00 Intake Total 170 ml Output Total 1130 ml Balance -960 ml IV Total 170 ml Output Urine Total 1130 ml Laboratory Tests 11/18/16 05:40: White Blood Count 5.6, Red Blood Count 3.35L, Hemoglobin 9.7L, Hematocrit 31.0L , Mean Corpuscular Volume 92, Mean Corpuscular Hemoglobin 29.0, Mean Corpuscular Hemoglobin Concent 31.3L, Red Cell Distribution Width 15.4H, Platelet Count 170, Mean Platelet Volume 5.6L, Neutrophils (%) (Auto) 58.9, Lymphocytes (%) (Auto) 18.7L, Monocytes (%) (Auto) 12.9H, Eosinophils (%) (Auto ) 8.3H, Basophils (%) (Auto) 1.1, Sodium Level 139, Potassium Level 3.8, Chloride Level 104, Carbon Dioxide Level 26, Anion Gap 9, Blood Urea Nitrogen 61H, Creatinine 3.6H, Estimat Glomerular Filtration Rate , Glucose Level 80, Calcium Level 8.6, Total Bilirubin 0.4, Aspartate Amino Transf (AST/SGOT) 14L, Alanine Aminotransferase (ALT/SGPT) < 6L, Alkaline Phosphatase 62, Pro-B-Type Natriuretic Peptide 44354L, Total Protein 6.4, Albumin 2.1L, Globulin 4.3, Albumin/Globulin Ratio 0.5L, Random Vancomycin Level 22.8 Height (Feet): 5 Height (Inches): 6.00 Weight (Pounds): 406 General Appearance: no apparent distress EENT: TMs normal Neck: normal inspection Cardiovascular: no gallop/murmur Respiratory/Chest: no accessory muscle use Abdomen: no organomegaly 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
[2016-11-18] MEDS ORDERED: Vancomycin 1.5 GM/D5W 250ML IVPB ONE (22:00)
--- NOTE | 2016-11-18 23:25 | Cardiology Report ---
APPROVED REPORT EKG Measurement Heart [id number] Atrial fibrillation with premature ventricular or aberrantly conducted complexes Low voltage QRS Septal infarct, age undetermined Abnormal ECG
[2016-11-19] VITALS (24 sets, daily range): BP systolic 83–112; BP diastolic 31–79
[2016-11-19] MEDS: ceFAZolin 2gm/50ml Premix 50 ML IV SCH ×2 (03:05→14:39)
[2016-11-19] MEDS: Morphine Sulfate 10mg/ml Inj IVP PRN ×2 (03:08→09:33)
[2016-11-19 06:14] LABS: BASOPHILS % (AUTO) 1.3 % (0.0-2.0); EOSINOPHILS % (AUTO) 7.5 % (0.0-3.0); LYMPHOCYTES % (AUTO) 20.9 % (20.0-45.0); MEAN CORPUSCULAR HEMOGLOBIN 29.6 PG (27.0-31.0); MEAN CORPUSCULAR HGB CONC 32.1 G/DL (32.0-36.0); MEAN CORPUSCULAR VOLUME 92 FL (80-99); MEAN PLATELET VOLUME 5.6 FL (6.5-10.1); MONOCYTES % (AUTO) 16.4 % (1.0-10.0); NEUTROPHILS % (AUTO) 53.8 % (45.0-75.0); PLATELET COUNT 143 K/UL (150-450); RED BLOOD COUNT 2.89 M/UL (4.20-5.40); RED CELL DISTRIBUTION WIDTH 15.7 % (11.6-14.8); WHITE BLOOD COUNT 4.8 K/UL (4.8-10.8)
[2016-11-19 06:23] LABS: INR 3.6 (0.9-1.1); PROTHROMBIN TIME 37.8 SEC (9.30-11.50)
[2016-11-19 06:40] LABS: ALBUMIN/GLOBULIN RATIO 0.5 (1.0-2.7); ANION GAP 11 (5-15); ASPARTATE AMINO TRANSFERASE 15 U/L (15-37); CALCIUM 8.5 MG/DL (8.5-10.1); CARBON DIOXIDE 26 MMOL/L (21-32); CHLORIDE 104 MMOL/L (98-107); CREATININE 3.6 MG/DL (0.55-1.30); MAGNESIUM 1.7 MG/DL (1.8-2.4); PHOSPHORUS 3.5 MG/DL (2.5-4.9); POTASSIUM 3.6 MMOL/L (3.5-5.1); SODIUM 140 MMOL/L (136-145)
[2016-11-19 06:48] LABS: ALANINE AMINOTRANSFERASE < 6 U/L (12-78)
[2016-11-19 08:39] LABS: ABG ALLEN TEST POSITIVE; ABG BASE EXCESS 1.4; ABG PCO2 38.7 mmHg (35.0-45.0)
[2016-11-19] MEDS: Miralax 17gm pkt ORAL SCH (09:31)
[2016-11-19] MEDS: Pantoprazole Inj IVP SCH (09:31)
[2016-11-19] MEDS: Docusate 100mg cap ORAL SCH ×2 (09:32→17:09)
[2016-11-19] MEDS: Revatio 20mg tab ORAL SCH ×3 (09:32→17:09)
[2016-11-19] MEDS: Vitamin B-12 500mcg tab ORAL SCH (09:32)
[2016-11-19] MEDS: Calcitriol 0.25mcg Cap ORAL SCH (09:32)
[2016-11-19] MEDS: Eliquis 2.5mg tablet ORAL SCH ×2 (09:33→17:09)
--- NOTE | 2016-11-19 09:39 | Pulmonolgy Critical Care Note ---
Critical Care - Asmt/Plan Problems: (1) Acute and chronic respiratory failure (2) Anasarca (3) ATN (acute tubular necrosis) (4) Atrial fibrillation (5) Morbid obesity (6) Pickwickian syndrome Assessment/Plan: for revision of trach today Respiratory: monitor respiratory rate, adjust FIO2, CXR Cardiac: continue to monitor HR/BP Renal: F/U I&O, keep IV fluid, check electrolytes Infectious Disease: check cultures Gastrointestinal: continue feedings/current rate, hold feedings Endocrine: check TSH Hematologic: monitor H/H Neurologic: PRN Ativan Affect: PRN ativan Prophylaxis: Heparin Disposition: keep in ICU 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, 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, 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: nurses, counter 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 manager - Objective Last 24 Hour Vital Signs Date Time Temp Pulse Resp B/P (MAP) Pulse Ox O2 Delivery O2 Flow Rate FiO2 11/19/16 09:00 70 20 91/34 100 Mechanical Ventilator 30 11/19/16 08:41 30 11/19/16 08:00 66 11/19/16 08:00 50 11/19/16 08:00 70 22 112/79 100 Mechanical Ventilator 50 11/19/16 07:00 98.7 72 22 92/42 99 Mechanical Ventilator 50 11/19/16 07:00 79 20 50 11/19/16 06:00 77 27 102/54 99 Endotracheal Tube 50 11/19/16 05:00 77 26 106/54 99 Endotracheal Tube 50 11/19/16 04:48 75 20 50 11/19/16 04:00 77 26 99/54 99 Endotracheal Tube 50 11/19/16 04:00 50 11/19/16 04:00 74 11/19/16 03:00 72 26 98/54 99 Endotracheal Tube 50 11/19/16 02:45 83 20 50 11/19/16 02:00 72 26 104/54 99 Endotracheal Tube 50 11/19/16 01:00 98.5 73 27 102/55 99 Endotracheal Tube 50 11/19/16 00:30 76 20 50 11/19/16 00:00 50 11/19/16 00:00 77 11/19/16 00:00 71 26 93/51 99 Endotracheal Tube 50 11/18/16 23:04 66 26 91/50 99 Endotracheal Tube 50 11/18/16 22:30 81 20 50 11/18/16 22:19 98.5 10/12/17 22:00 98.0 71 27 95/54 99 Endotracheal Tube 50 11/18/16 21:03 72 11/18/16 20:52 70 20 50 11/18/16 20:45 98.0 69 27 95/60 99 Endotracheal Tube 50 11/18/16 20:20 98.0 69 27 95/60 99 Endotracheal Tube 50 11/18/16 20:00 50 11/18/16 19:00 69 22 96/52 98 Mechanical Ventilator 50 11/18/16 18:40 75 20 50 11/18/16 18:00 78 24 104/59 99 Mechanical Ventilator 50 11/18/16 17:08 72 20 50 11/18/16 17:00 69 20 95/50 98 Mechanical Ventilator 50 11/18/16 16:00 98.5 70 22 84/43 98 Mechanical Ventilator 50 11/18/16 16:00 71 11/18/16 16:00 50 11/18/16 15:16 20 50 11/18/16 15:00 70 20 122/65 98 Mechanical Ventilator 50 11/18/16 14:00 80 18 122/58 97 Mechanical Ventilator 50 11/18/16 13:00 67 20 95/60 97 Mechanical Ventilator 50 11/18/16 12:32 60 20 50 11/18/16 12:00 68 11/18/16 12:00 98.5 68 24 84/43 98 Mechanical Ventilator 50 11/18/16 12:00 50 11/18/16 11:07 20 50 11/18/16 11:00 67 20 83/46 98 Mechanical Ventilator 50 11/18/16 10:00 68 20 82/44 97 Mechanical Ventilator 50 Status: awake Condition: critical HEENT: atraumatic, normocephalic Lungs: clear Heart: HR/BP stable, HR/BP unstable Abdomen: soft, active bowel sounds, feeding tube Extremities: no C/C/E, edema Decubiti: location Critical Care - Subjective ROS Limited/Unobtainable: Yes ICU Day: 5 Intubation Day: 5 Condition: critical EKG Rhythm: Sinus Rhythm FI02: 30 Vent Support Breath Rate: 20 Vent Support Mode: AC Vent Tidal Volume: 600 Sputum Amount: Small PEEP: 5.0 PIP: 50 I&O: Intake and Output 11/19/16 11/20/16 19:00 07:00 Output Total 255 ml Balance -255 ml Output Urine Total 255 ml CXR: no change ET-Tube: 6.0 ET Position: 15 Labs: Laboratory Tests Test 11/19/16 04:35 11/19/16 08:24 White Blood Count 4.8 K/UL (4.8-10.8) Red Blood Count 2.89 M/UL (4.20-5.40) L Hemoglobin 8.6 G/DL (12.0-16.0) L Hematocrit 26.7 % (37.0-47.0) L Mean Corpuscular Volume 92 FL (80-99) Mean Corpuscular Hemoglobin 29.6 PG (27.0-31.0) Mean Corpuscular Hemoglobin Concent 32.1 G/DL (32.0-36.0) Red Cell Distribution Width 15.7 % (11.6-14.8) H Platelet Count 143 K/UL (150-450) L Mean Platelet Volume 5.6 FL (6.5-10.1) L Neutrophils (%) (Auto) 53.8 % (45.0-75.0) Lymphocytes (%) (Auto) 20.9 % (20.0-45.0) Monocytes (%) (Auto) 16.4 % (1.0-10.0) H Eosinophils (%) (Auto) 7.5 % (0.0-3.0) H Basophils (%) (Auto) 1.3 % (0.0-2.0) Prothrombin Time 37.8 SEC (9.30-11.50) H Prothromb Time International Ratio 3.6 (0.9-1.1) H Activated Partial Thromboplast Time 42 SEC (23-33) H Sodium Level 140 MMOL/L (136-145) Potassium Level 3.6 MMOL/L (3.5-5.1) Chloride Level 104 MMOL/L (98-107) Carbon Dioxide Level 26 MMOL/L (21-32) Anion Gap 11 (5-15) Blood Urea Nitrogen 60 mg/dL (7-18) H Creatinine 3.6 MG/DL (0.55-1.30) H Estimat Glomerular Filtration Rate mL/min (>60) Glucose Level 74 MG/DL (74-106) Calcium Level 8.5 MG/DL (8.5-10.1) Phosphorus Level 3.5 MG/DL (2.5-4.9) Magnesium Level 1.7 MG/DL (1.8-2.4) L Total Bilirubin 0.4 MG/DL (0.2-1.0) Aspartate Amino Transf (AST/SGOT) 15 U/L (15-37) Alanine Aminotransferase (ALT/SGPT) < 6 U/L (12-78) L Alkaline Phosphatase 56 U/L (46-116) Total Protein 6.0 G/DL (6.4-8.2) L Albumin 1.9 G/DL (3.4-5.0) L Globulin 4.1 g/dL Albumin/Globulin Ratio 0.5 (1.0-2.7) L Arterial Blood pH 7.430 (7.350-7.450) Arterial Blood Partial Pressure CO2 38.7 mmHg (35.0-45.0) Arterial Blood Partial Pressure O2 202.6 mmHg (75.0-100.0) H Arterial Blood HCO3 25.6 mmol/L (22.0-26.0) Arterial Blood Oxygen Saturation 99.1 % (92.0-98.0) H Arterial Blood Base Excess 1.4 Mike Test Positive ARASH MIRANDA Nov 19, 2016 09:39
--- NOTE | 2016-11-19 12:50 | General Progress Note ---
Assessment/Plan Status: stable Status Narrative Cr stable Assessment/Plan Cellulitis BLE and R arm- in the setting of chronic leg edema- r/o DVT Anasarca/ bilateral leg lymphedema CKD- and acute renal failure - Cr 3.1 unchanged since last admission- Acute respiratory failure s/p Trach Obese COPD , CHF, Diastolic MINA UTI Anemia GI Bleed, GI bleeding At Fib Pulm HTN h/o Low B12 plan: due trach change today zaroxyllin- lasix drip add EPOGEN 24 H urine collection in process: CrCl 6 Monitor renal parameters- optimize cardiac and pulm status avoid nephrotoxics- pulmonary support- transfuse as needed Subjective ROS Limited/Unobtainable: No Allergies: Coded Allergies: AMOXICILLIN (Verified Allergy, Mild, RASH, 09/30/16) PENICILLINS (Unverified Allergy, Unknown, 09/30/16) Objective Last 24 Hour Vital Signs Date Time Temp Pulse Resp B/P (MAP) Pulse Ox O2 Delivery O2 Flow Rate FiO2 11/19/16 12:00 98.5 68 24 88/44 100 Mechanical Ventilator 30 11/19/16 12:00 69 11/19/16 11:00 65 22 91/42 98 Mechanical Ventilator 30 11/19/16 10:41 74 20 50 11/19/16 10:00 65 20 94/31 100 Mechanical Ventilator 30 11/19/16 10:00 98.7 11/19/16 09:17 77 20 30 11/19/16 09:00 30 11/19/16 09:00 70 20 91/34 100 Mechanical Ventilator 30 11/19/16 08:41 30 11/19/16 08:00 66 11/19/16 08:00 50 11/19/16 08:00 70 22 112/79 100 Mechanical Ventilator 50 11/19/16 07:00 98.7 72 22 92/42 99 Mechanical Ventilator 50 11/19/16 07:00 79 20 50 11/19/16 06:00 77 27 102/54 99 Endotracheal Tube 50 11/19/16 05:00 77 26 106/54 99 Endotracheal Tube 50 11/19/16 04:48 75 20 50 11/19/16 04:00 77 26 99/54 99 Endotracheal Tube 50 11/19/16 04:00 50 11/19/16 04:00 74 11/19/16 03:00 72 26 98/54 99 Endotracheal Tube 50 11/19/16 02:45 83 20 50 11/19/16 02:00 72 26 104/54 99 Endotracheal Tube 50 11/19/16 01:00 98.5 73 27 102/55 99 Endotracheal Tube 50 11/19/16 00:30 76 20 50 11/19/16 00:00 50 11/19/16 00:00 77 11/19/16 00:00 71 26 93/51 99 Endotracheal Tube 50 11/18/16 23:04 66 26 91/50 99 Endotracheal Tube 50 11/18/16 22:30 81 20 50 11/18/16 22:00 98.0 71 27 95/54 99 Endotracheal Tube 50 11/18/16 21:03 72 11/18/16 20:52 70 20 50 11/18/16 20:45 98.0 69 27 95/60 99 Endotracheal Tube 50 11/18/16 20:20 98.0 69 27 95/60 99 Endotracheal Tube 50 11/18/16 20:00 50 11/18/16 19:00 69 22 96/52 98 Mechanical Ventilator 50 11/18/16 18:40 75 20 50 11/18/16 18:00 78 24 104/59 99 Mechanical Ventilator 50 11/18/16 17:08 72 20 50 11/18/16 17:00 69 20 95/50 98 Mechanical Ventilator 50 11/18/16 16:00 98.5 70 22 84/43 98 Mechanical Ventilator 50 11/18/16 16:00 71 11/18/16 16:00 50 11/18/16 15:16 20 50 11/18/16 15:00 70 20 122/65 98 Mechanical Ventilator 50 11/18/16 14:00 80 18 122/58 97 Mechanical Ventilator 50 11/18/16 13:00 67 20 95/60 97 Mechanical Ventilator 50 Intake and Output 11/19/16 11/20/16 19:00 07:00 Intake Total 50 ml Output Total 655 ml Balance -605 ml IV Total 50 ml Output Urine Total 655 ml Laboratory Tests 11/19/16 04:35: White Blood Count 4.8, Red Blood Count 2.89L, Hemoglobin 8.6L, Hematocrit 26.7L , Mean Corpuscular Volume 92, Mean Corpuscular Hemoglobin 29.6, Mean Corpuscular Hemoglobin Concent 32.1, Red Cell Distribution Width 15.7H, Platelet Count 143L, Mean Platelet Volume 5.6L, Neutrophils (%) (Auto) 53.8, Lymphocytes (%) (Auto) 20.9, Monocytes (%) (Auto) 16.4H, Eosinophils (%) (Auto) 7.5H, Basophils (%) (Auto) 1.3, Prothrombin Time 37.8H, Prothromb Time International Ratio 3.6H, Activated Partial Thromboplast Time 42H, Sodium Level 140, Potassium Level 3.6, Chloride Level 104, Carbon Dioxide Level 26, Anion Gap 11, Blood Urea Nitrogen 60H, Creatinine 3.6H, Estimat Glomerular Filtration Rate , Glucose Level 74, Calcium Level 8.5, Phosphorus Level 3.5, Magnesium Level 1.7L, Total Bilirubin 0.4, Aspartate Amino Transf (AST/SGOT) 15, Alanine Aminotransferase (ALT/SGPT) < 6L, Alkaline Phosphatase 56, Total Protein 6.0L, Albumin 1.9L, Globulin 4.1, Albumin/Globulin Ratio 0.5L 11/19/16 08:24: Arterial Blood pH 7.430, Arterial Blood Partial Pressure CO2 38.7, Arterial Blood Partial Pressure O2 202.6H, Arterial Blood HCO3 25.6, Arterial Blood Oxygen Saturation 99.1H, Arterial Blood Base Excess 1.4, Mike Test Positive Height (Feet): 5 Height (Inches): 5.00 Weight (Pounds): 403 General Appearance: no apparent distress Cardiovascular: normal rate Respiratory/Chest: decreased breath sounds Abdomen: soft Objective BP low , but doubtful measurement COURTNEY LOPEZ Nov 19, 2016 12:50
--- NOTE | 2016-11-19 14:04 | Diagnostic Imaging Report ---
Indication: Dyspnea Comparison: 11/18/16 A single view chest radiograph was obtained. Findings: Pulmonary vascular congestion and interstitial edema are demonstrated. Heart is enlarged. There is a tracheostomy present. Findings appear unchanged. Impression: Interstitial edema/CHF unchanged
[2016-11-19 14:44] LABS: PROTHROMBIN TIME 42.2 SEC (9.30-11.50)
--- NOTE | 2016-11-19 14:59 | Infectious Diseases Prog Note ---
Assessment/Plan Assessment/Plan Abx: IV Vancomycin 11/11-11/12; 11/17- IV Cefepime 11/11-11/12 IV Ancef 11/12- Flagyl x1 11/11 Assesment: Cellulitis BLE and R arm- in the setting of chronic leg edema/venous stasis- Limited Venous duplex BLE (non diagnostic), no DVT R arm -Bcx Neg Anasarca/ bilateral leg lymphedema -CXR 11/19: Interstitial edema/CHF unchanged Afebrile, no leukocytosis REnal insufficiency COPD Diastolic CHF chronic resp failure, vent/trach dependent, Gtbue, pAfib, pleural effusion, MINA , CKD, GERD, morbid obesity, [place] resident Plan: -Continue Ancef for cellulitis (abx #/) and Continue IV Vancomycin #3 (added for additional gram positive coverage) -extremity elevation -edema management -f/u final Bcx -Monitor CBC/BMP, temperatures Thank you for this consultation. Will continue to follow along with you. 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 RN. Subjective Allergies: Coded Allergies: AMOXICILLIN (Verified Allergy, Mild, RASH, 09/30/16) PENICILLINS (Unverified Allergy, Unknown, 09/30/16) Subjective afebrile no leukocytosis remains in ICU Objective Vital Signs Last 24 Hour Vital Signs Date Time Temp Pulse Resp B/P (MAP) Pulse Ox O2 Delivery O2 Flow Rate FiO2 11/19/16 13:07 77 20 30 11/19/16 13:00 67 20 95/40 98 Mechanical Ventilator 30 11/19/16 12:00 98.5 68 24 88/44 100 Mechanical Ventilator 30 11/19/16 12:00 69 11/19/16 11:00 65 22 91/42 98 Mechanical Ventilator 30 11/19/16 10:41 74 20 50 11/19/16 10:00 65 20 94/31 100 Mechanical Ventilator 30 11/19/16 10:00 98.7 11/19/16 09:17 77 20 30 11/19/16 09:00 30 11/19/16 09:00 70 20 91/34 100 Mechanical Ventilator 30 11/19/16 08:41 30 11/19/16 08:00 66 11/19/16 08:00 50 11/19/16 08:00 70 22 112/79 100 Mechanical Ventilator 50 11/19/16 07:00 98.7 72 22 92/42 99 Mechanical Ventilator 50 11/19/16 07:00 79 20 50 11/19/16 06:00 77 27 102/54 99 Endotracheal Tube 50 11/19/16 05:00 77 26 106/54 99 Endotracheal Tube 50 11/19/16 04:48 75 20 50 11/19/16 04:00 77 26 99/54 99 Endotracheal Tube 50 11/19/16 04:00 50 11/19/16 04:00 74 11/19/16 03:00 72 26 98/54 99 Endotracheal Tube 50 11/19/16 02:45 83 20 50 11/19/16 02:00 72 26 104/54 99 Endotracheal Tube 50 11/19/16 01:00 98.5 73 27 102/55 99 Endotracheal Tube 50 11/19/16 00:30 76 20 50 11/19/16 00:00 50 11/19/16 00:00 77 11/19/16 00:00 71 26 93/51 99 Endotracheal Tube 50 11/18/16 23:04 66 26 91/50 99 Endotracheal Tube 50 11/18/16 22:30 81 20 50 11/18/16 22:00 98.0 71 27 95/54 99 Endotracheal Tube 50 11/18/16 21:03 72 11/18/16 20:52 70 20 50 11/18/16 20:45 98.0 69 27 95/60 99 Endotracheal Tube 50 11/18/16 20:20 98.0 69 27 95/60 99 Endotracheal Tube 50 11/18/16 20:00 50 11/18/16 19:00 69 22 96/52 98 Mechanical Ventilator 50 11/18/16 18:40 75 20 50 11/18/16 18:00 78 24 104/59 99 Mechanical Ventilator 50 11/18/16 17:08 72 20 50 11/18/16 17:00 69 20 95/50 98 Mechanical Ventilator 50 11/18/16 16:00 98.5 70 22 84/43 98 Mechanical Ventilator 50 11/18/16 16:00 71 11/18/16 16:00 50 11/18/16 15:16 20 50 11/18/16 15:00 70 20 122/65 98 Mechanical Ventilator 50 Height (Feet): 5 Height (Inches): 5.00 Weight (Pounds): 403 Objective General Appearance: WD/WN HEENT: trach in palce, Respiratory/Chest: chest wall non-tender, lungs clear Cardiovascular/Chest: normal peripheral pulses, normal rate Abdomen: normal bowel sounds, non tender Ext: anasarca; R > L LE swelling, both legs with blanching erythema anteriorly from distal leg up to below knee, +warmth, non TTP, no drainage R arm swelling, erythematous,. background changes of chronic lymphedema on b/l legs; minimally improved Laboratory Tests Test 11/19/16 04:35 11/19/16 08:24 11/19/16 14:05 White Blood Count 4.8 K/UL (4.8-10.8) Red Blood Count 2.89 M/UL (4.20-5.40) L Hemoglobin 8.6 G/DL (12.0-16.0) L Hematocrit 26.7 % (37.0-47.0) L Mean Corpuscular Volume 92 FL (80-99) Mean Corpuscular Hemoglobin 29.6 PG (27.0-31.0) Mean Corpuscular Hemoglobin Concent 32.1 G/DL (32.0-36.0) Red Cell Distribution Width 15.7 % (11.6-14.8) H Platelet Count 143 K/UL (150-450) L Mean Platelet Volume 5.6 FL (6.5-10.1) L Neutrophils (%) (Auto) 53.8 % (45.0-75.0) Lymphocytes (%) (Auto) 20.9 % (20.0-45.0) Monocytes (%) (Auto) 16.4 % (1.0-10.0) H Eosinophils (%) (Auto) 7.5 % (0.0-3.0) H Basophils (%) (Auto) 1.3 % (0.0-2.0) Prothrombin Time 37.8 SEC (9.30-11.50) H 42.2 SEC (9.30-11.50) H Prothromb Time International Ratio 3.6 (0.9-1.1) H 4.0 (0.9-1.1) H Activated Partial Thromboplast Time 42 SEC (23-33) H 42 SEC (23-33) H Sodium Level 140 MMOL/L (136-145) Potassium Level 3.6 MMOL/L (3.5-5.1) Chloride Level 104 MMOL/L (98-107) Carbon Dioxide Level 26 MMOL/L (21-32) Anion Gap 11 (5-15) Blood Urea Nitrogen 60 mg/dL (7-18) H Creatinine 3.6 MG/DL (0.55-1.30) H Estimat Glomerular Filtration Rate mL/min (>60) Glucose Level 74 MG/DL (74-106) Calcium Level 8.5 MG/DL (8.5-10.1) Phosphorus Level 3.5 MG/DL (2.5-4.9) Magnesium Level 1.7 MG/DL (1.8-2.4) L Total Bilirubin 0.4 MG/DL (0.2-1.0) Aspartate Amino Transf (AST/SGOT) 15 U/L (15-37) Alanine Aminotransferase (ALT/SGPT) < 6 U/L (12-78) L Alkaline Phosphatase 56 U/L (46-116) Total Protein 6.0 G/DL (6.4-8.2) L Albumin 1.9 G/DL (3.4-5.0) L Globulin 4.1 g/dL Albumin/Globulin Ratio 0.5 (1.0-2.7) L Arterial Blood pH 7.430 (7.350-7.450) Arterial Blood Partial Pressure CO2 38.7 mmHg (35.0-45.0) Arterial Blood Partial Pressure O2 202.6 mmHg (75.0-100.0) H Arterial Blood HCO3 25.6 mmol/L (22.0-26.0) Arterial Blood Oxygen Saturation 99.1 % (92.0-98.0) H Arterial Blood Base Excess 1.4 Mike Test Positive Current Medications Medications (Trade) Dose Ordered Sig/Kalyn Route PRN Reason Start Time Stop Time Status Last Admin Dose Admin Acetaminophen (Tylenol) 650 mg Q4H PRN ORAL Mild Pain/Temp > 100.5 11/14/16 08:00 12/12/16 07:59 Allopurinol (Allopurinol) 300 mg DAILY ORAL 11/16/16 10:00 12/16/16 09:59 11/19/16 09:32 Apixaban (Eliquis) 2.5 mg BID ORAL 11/14/16 09:00 12/12/16 08:59 11/18/16 17:33 Cefazolin Sodium 50 ml @ 100 mls/hr Q12HR@0300,1500 IV 11/15/16 15:00 11/22/16 14:59 11/19/16 14:39 Cyanocobalamin (Vitamin B-12) 3,000 mcg DAILY ORAL 11/14/16 09:00 12/12/16 08:59 11/19/16 09:32 Docusate Sodium (Colace) 100 mg TWICE A DAY ORAL 11/14/16 09:00 12/12/16 08:59 11/19/16 09:32 Epoetin Santos (Procrit (for non ESRD use)) 10,000 units TUE-TUE-TUE SUBQ 11/17/16 21:00 12/17/16 20:59 11/17/16 20:17 Folic Acid (Folate) 1 mg DAILY ORAL 11/14/16 09:00 12/12/16 08:59 11/19/16 09:32 Furosemide 100 mg/ Dextrose 100 ml @ 10 mls/hr Q10H IV 11/15/16 15:00 12/15/16 14:59 11/19/16 05:53 Gabapentin (Neurontin) 600 mg BID ORAL 11/14/16 09:00 12/14/16 08:59 11/19/16 09:32 Lorazepam (Ativan 2mg/ml 1ml) 2 mg Q2H PRN IV For Anxiety 11/14/16 08:00 11/21/16 07:59 11/16/16 06:32 Metolazone (Zaroxolyn) 10 mg DAILY ORAL 11/18/16 09:00 12/18/16 08:59 11/19/16 09:32 Pantoprazole (Protonix) 40 mg DAILY IVP 11/14/16 09:00 12/12/16 08:59 11/19/16 09:31 Polyethylene Glycol (Miralax) 17 gm DAILY ORAL 11/14/16 09:00 12/12/16 08:59 11/19/16 09:31 Pravastatin Sodium (Pravachol) 20 mg BEDTIME ORAL 11/14/16 21:00 12/12/16 20:59 11/18/16 21:50 Sevelamer Carbonate (Renvela) 800 mg THREE TIMES A DAY ORAL 11/14/16 09:00 12/12/16 08:59 11/19/16 12:38 Sildenafil Citrate (Revatio) 20 mg THREE TIMES A DAY ORAL 11/14/16 09:00 12/12/16 08:59 11/19/16 12:38 Vancomycin HCl (Vanco rx to dose) 1 ea DAILY PRN MISC Per rx protocol 11/17/16 13:15 12/17/16 13:14 Danielle Guo M.D. Nov 19, 2016 14:59
--- NOTE | 2016-11-19 15:45 | General Progress Note ---
Assessment/Plan Assessment/Plan ASSESSMENT: 1. Anemia secondary to chronic disease. Continue to closely monitor. Work up reviewed --> s/p transfusion. watch counts, transfuse if hgb is below 8 2. Anemia of kidney disease. Nephrology service following 3. History of breast cancer, currently on letrozole. 4. Chronic ventilator dependant, to receive trach 5. Permanent atrial fibrillation. She is on apixaban. 6. Cellulitis and chronic lymphedema of the bilateral lower extremities. Continue to monitor. On abx per id service 7. Congestive heart failure. Subjective ROS Limited/Unobtainable: Yes Allergies: Coded Allergies: AMOXICILLIN (Verified Allergy, Mild, RASH, 09/30/16) PENICILLINS (Unverified Allergy, Unknown, 09/30/16) Objective Last 24 Hour Vital Signs Date Time Temp Pulse Resp B/P (MAP) Pulse Ox O2 Delivery O2 Flow Rate FiO2 11/19/16 15:23 20 30 11/19/16 15:00 70 20 85/38 98 Mechanical Ventilator 30 11/19/16 14:00 67 22 96/40 97 Mechanical Ventilator 30 11/19/16 13:07 77 20 30 11/19/16 13:00 67 20 95/40 98 Mechanical Ventilator 30 11/19/16 12:00 98.5 68 24 88/44 100 Mechanical Ventilator 30 11/19/16 12:00 69 11/19/16 11:00 65 22 91/42 98 Mechanical Ventilator 30 11/19/16 10:41 74 20 50 11/19/16 10:00 65 20 94/31 100 Mechanical Ventilator 30 11/19/16 10:00 98.7 11/19/16 09:17 77 20 30 11/19/16 09:00 30 11/19/16 09:00 70 20 91/34 100 Mechanical Ventilator 30 11/19/16 08:41 30 11/19/16 08:00 66 11/19/16 08:00 50 11/19/16 08:00 70 22 112/79 100 Mechanical Ventilator 50 11/19/16 07:00 98.7 72 22 92/42 99 Mechanical Ventilator 50 11/19/16 07:00 79 20 50 11/19/16 06:00 77 27 102/54 99 Endotracheal Tube 50 11/19/16 05:00 77 26 106/54 99 Endotracheal Tube 50 11/19/16 04:48 75 20 50 11/19/16 04:00 77 26 99/54 99 Endotracheal Tube 50 11/19/16 04:00 50 11/19/16 04:00 74 11/19/16 03:00 72 26 98/54 99 Endotracheal Tube 50 11/19/16 02:45 83 20 50 11/19/16 02:00 72 26 104/54 99 Endotracheal Tube 50 11/19/16 01:00 98.5 73 27 102/55 99 Endotracheal Tube 50 11/19/16 00:30 76 20 50 11/19/16 00:00 50 11/19/16 00:00 77 11/19/16 00:00 71 26 93/51 99 Endotracheal Tube 50 11/18/16 23:04 66 26 91/50 99 Endotracheal Tube 50 11/18/16 22:30 81 20 50 11/18/16 22:00 98.0 71 27 95/54 99 Endotracheal Tube 50 11/18/16 21:03 72 11/18/16 20:52 70 20 50 11/18/16 20:45 98.0 69 27 95/60 99 Endotracheal Tube 50 11/18/16 20:20 98.0 69 27 95/60 99 Endotracheal Tube 50 11/18/16 20:00 50 11/18/16 19:00 69 22 96/52 98 Mechanical Ventilator 50 11/18/16 18:40 75 20 50 11/18/16 18:00 78 24 104/59 99 Mechanical Ventilator 50 11/18/16 17:08 72 20 50 11/18/16 17:00 69 20 95/50 98 Mechanical Ventilator 50 11/18/16 16:00 98.5 70 22 84/43 98 Mechanical Ventilator 50 11/18/16 16:00 71 11/18/16 16:00 50 Intake and Output 11/19/16 11/20/16 19:00 07:00 Intake Total 60 ml Output Total 920 ml Balance -860 ml IV Total 60 ml Output Urine Total 920 ml Laboratory Tests 11/19/16 04:35: White Blood Count 4.8, Red Blood Count 2.89L, Hemoglobin 8.6L, Hematocrit 26.7L , Mean Corpuscular Volume 92, Mean Corpuscular Hemoglobin 29.6, Mean Corpuscular Hemoglobin Concent 32.1, Red Cell Distribution Width 15.7H, Platelet Count 143L, Mean Platelet Volume 5.6L, Neutrophils (%) (Auto) 53.8, Lymphocytes (%) (Auto) 20.9, Monocytes (%) (Auto) 16.4H, Eosinophils (%) (Auto) 7.5H, Basophils (%) (Auto) 1.3, Prothrombin Time 37.8H, Prothromb Time International Ratio 3.6H, Activated Partial Thromboplast Time 42H, Sodium Level 140, Potassium Level 3.6, Chloride Level 104, Carbon Dioxide Level 26, Anion Gap 11, Blood Urea Nitrogen 60H, Creatinine 3.6H, Estimat Glomerular Filtration Rate , Glucose Level 74, Calcium Level 8.5, Phosphorus Level 3.5, Magnesium Level 1.7L, Total Bilirubin 0.4, Aspartate Amino Transf (AST/SGOT) 15, Alanine Aminotransferase (ALT/SGPT) < 6L, Alkaline Phosphatase 56, Total Protein 6.0L, Albumin 1.9L, Globulin 4.1, Albumin/Globulin Ratio 0.5L 11/19/16 08:24: Arterial Blood pH 7.430, Arterial Blood Partial Pressure CO2 38.7, Arterial Blood Partial Pressure O2 202.6H, Arterial Blood HCO3 25.6, Arterial Blood Oxygen Saturation 99.1H, Arterial Blood Base Excess 1.4, Mike Test Positive 11/19/16 14:05: Prothrombin Time 42.2H, Prothromb Time International Ratio 4.0H, Activated Partial Thromboplast Time 42H Height (Feet): 5 Height (Inches): 5.00 Weight (Pounds): 403 General Appearance: no apparent distress EENT: normal ENT inspection Cardiovascular: no gallop/murmur Respiratory/Chest: no accessory muscle use Extremities: non-tender Edema: trace edema Skin: warm/dry Serafin Haines Nov 19, 2016 15:45
[2016-11-19 17:59] LABS: CREATININE 3.6 MG/DL (0.55-1.30)
[2016-11-19 18:09] LABS: CREATININE CLEARANCE,URINE 6 mL/min (71-151)
--- NOTE | 2016-11-19 20:07 | General Progress Note ---
Assessment/Plan Assessment/Plan This is a 76-year-old, morbidly obese female, admitted with anasarca and cellulitis of the lower leg. The patient was admitted to the directr observation unit on the monitor with the following medical problems. now transfered to icu as of 11-14-16, co of pruritis 1. Anasarca. She appears to be markedly swollen. She will need diuresis. Place the patient on Lasix 20 mg intravenous for now q.12 hours. Cardiology and Pulmonary on the case. We will follow orders. Check laboratory studies daily. conitnue lasix drip 10 mg per hour, discussed with / Zoila may need dialysis if she doesn't respond to diuresis, 24 hour urine collection ordered 2. Chronic hypercapnic respiratory failure. Continue with vent support per Pulmonary. 3 anemia. s./p transfusion of PRBC Continue monitoring CBC daily. 4. Pulmonary hypertension. Continue with Eliquis 2.5 mg twice a day and medications per Pulmonary and Cardiology. hold #Eloquis if bleeding suspected 5. Chronic kidney disease. We will monitor BUN and creatinine. Gentle diuresis for now. Nephrology has been consulted. further workup per nephrology. avoid nephrotoxic agents 6. DVT prophylaxis. The patient is on Eliquis. The patient is Full Code. patient is severely volume overloaded will transfer to ICU for closer monitoring., ABG prn, chest xray and daily weights continue duresis, monitor bp , consider midodrin 5 mg tid if pressure drop, am labs discussed at length with icu nursing staff and consultants elevate right arm with pillow while reclining for revesion of trach today, but cancelled due to elevated inr discussed with icu team benadryl 25 mg iv q 6 prn itching Subjective Date patient seen: Nov 19, 2016 ROS Limited/Unobtainable: Yes Allergies: Coded Allergies: AMOXICILLIN (Verified Allergy, Mild, RASH, 09/30/16) PENICILLINS (Unverified Allergy, Unknown, 09/30/16) Objective Last 24 Hour Vital Signs Date Time Temp Pulse Resp B/P (MAP) Pulse Ox O2 Delivery O2 Flow Rate FiO2 11/19/16 19:22 70 20 30 11/19/16 19:00 67 20 83/38 98 Mechanical Ventilator 30 11/19/16 18:00 70 20 112/51 96 Mechanical Ventilator 30 11/19/16 17:00 70 20 84/41 96 Mechanical Ventilator 30 11/19/16 16:57 69 20 30 11/19/16 16:00 98.1 65 20 90/36 98 Mechanical Ventilator 30 11/19/16 16:00 71 11/19/16 16:00 30 11/19/16 15:23 20 30 11/19/16 15:00 70 20 85/38 98 Mechanical Ventilator 30 11/19/16 14:00 67 22 96/40 97 Mechanical Ventilator 30 11/19/16 13:07 77 20 30 11/19/16 13:00 67 20 95/40 98 Mechanical Ventilator 30 11/19/16 12:00 98.5 68 24 88/44 100 Mechanical Ventilator 30 11/19/16 12:00 69 11/19/16 11:00 65 22 91/42 98 Mechanical Ventilator 30 11/19/16 10:41 74 20 30 11/19/16 10:00 65 20 94/31 100 Mechanical Ventilator 30 11/19/16 10:00 98.7 11/19/16 09:17 77 20 30 11/19/16 09:00 30 11/19/16 09:00 70 20 91/34 100 Mechanical Ventilator 30 11/19/16 08:41 30 11/19/16 08:00 66 11/19/16 08:00 50 11/19/16 08:00 70 22 112/79 100 Mechanical Ventilator 50 11/19/16 07:00 98.7 72 22 92/42 99 Mechanical Ventilator 50 11/19/16 07:00 79 20 50 11/19/16 06:00 77 27 102/54 99 Endotracheal Tube 50 11/19/16 05:00 77 26 106/54 99 Endotracheal Tube 50 11/19/16 04:48 75 20 50 11/19/16 04:00 77 26 99/54 99 Endotracheal Tube 50 11/19/16 04:00 50 11/19/16 04:00 74 11/19/16 03:00 72 26 98/54 99 Endotracheal Tube 50 11/19/16 02:45 83 20 50 11/19/16 02:00 72 26 104/54 99 Endotracheal Tube 50 11/19/16 01:00 98.5 73 27 102/55 99 Endotracheal Tube 50 11/19/16 00:30 76 20 50 11/19/16 00:00 50 11/19/16 00:00 77 11/19/16 00:00 71 26 93/51 99 Endotracheal Tube 50 11/18/16 23:04 66 26 91/50 99 Endotracheal Tube 50 11/18/16 22:30 81 20 50 11/18/16 22:00 98.0 71 27 95/54 99 Endotracheal Tube 50 11/18/16 21:03 72 11/18/16 20:52 70 20 50 11/18/16 20:45 98.0 69 27 95/60 99 Endotracheal Tube 50 11/18/16 20:20 98.0 69 27 95/60 99 Endotracheal Tube 50 Intake and Output 11/19/16 11/20/16 19:00 07:00 Intake Total 170 ml Output Total 1140 ml Balance -970 ml IV Total 170 ml Output Urine Total 1140 ml Laboratory Tests 11/19/16 04:35: White Blood Count 4.8, Red Blood Count 2.89L, Hemoglobin 8.6L, Hematocrit 26.7L , Mean Corpuscular Volume 92, Mean Corpuscular Hemoglobin 29.6, Mean Corpuscular Hemoglobin Concent 32.1, Red Cell Distribution Width 15.7H, Platelet Count 143L, Mean Platelet Volume 5.6L, Neutrophils (%) (Auto) 53.8, Lymphocytes (%) (Auto) 20.9, Monocytes (%) (Auto) 16.4H, Eosinophils (%) (Auto) 7.5H, Basophils (%) (Auto) 1.3, Prothrombin Time 37.8H, Prothromb Time International Ratio 3.6H, Activated Partial Thromboplast Time 42H, Sodium Level 140, Potassium Level 3.6, Chloride Level 104, Carbon Dioxide Level 26, Anion Gap 11, Blood Urea Nitrogen 60H, Creatinine 3.6H, Estimat Glomerular Filtration Rate , Glucose Level 74, Calcium Level 8.5, Phosphorus Level 3.5, Magnesium Level 1.7L, Total Bilirubin 0.4, Aspartate Amino Transf (AST/SGOT) 15, Alanine Aminotransferase (ALT/SGPT) < 6L, Alkaline Phosphatase 56, Total Protein 6.0L, Albumin 1.9L, Globulin 4.1, Albumin/Globulin Ratio 0.5L 11/19/16 08:24: Arterial Blood pH 7.430, Arterial Blood Partial Pressure CO2 38.7, Arterial Blood Partial Pressure O2 202.6H, Arterial Blood HCO3 25.6, Arterial Blood Oxygen Saturation 99.1H, Arterial Blood Base Excess 1.4, Mike Test Positive 11/19/16 14:05: Prothrombin Time 42.2H, Prothromb Time International Ratio 4.0H, Activated Partial Thromboplast Time 42H Height (Feet): 5 Height (Inches): 5.00 Weight (Pounds): 403 General Appearance: morbidly obese EENT: PERRL/EOMI, pharynx normal Neck: non-tender, supple Cardiovascular: normal rate, regular rhythm, no gallop/murmur, no JVD Respiratory/Chest: decreased breath sounds Abdomen: distended Extremities: swelling Edema: 4+ Arm (L), 4+ Arm (R), 4+ Leg (L), 4+ Leg (R), 4+ Pedal (L), 4+ Pedal ( R), 4+ Generalized Edema: severe edema Neurologic: bag turner II-XII grossly normal, oriented x 3, responsive Skin: rash Lymphatic: normal anterior cervical (L), normal anterior cervical (R), normal posterior cervical (L), normal posterior cervical (R), normal submandibular (L) , normal submandibular (R), normal supraclavicular (L), normal supraclavicular ( R), normal axillary (L), normal axillary (R), normal inguinal (L), normal inguinal (R), normal other Manny Nolan MD Nov 19, 2016 20:07
[2016-11-19] MEDS: DiphenhydrAMINE 50mg/ml Inj IVP PRN (20:28)
[2016-11-19] MEDS: Epogen (for non ESRD use) SUBQ SCH (21:35)
[2016-11-20] VITALS (24 sets, daily range): BP systolic 66–109; BP diastolic 28–79
[2016-11-20] MEDS: ceFAZolin 2gm/50ml Premix 50 ML IV SCH ×2 (02:32→15:36)
[2016-11-20 06:46] LABS: BASOPHILS % (AUTO) 1.3 % (0.0-2.0); EOSINOPHILS % (AUTO) 5.4 % (0.0-3.0); LYMPHOCYTES % (AUTO) 22.2 % (20.0-45.0); MEAN CORPUSCULAR HEMOGLOBIN 28.9 PG (27.0-31.0); MEAN CORPUSCULAR HGB CONC 31.6 G/DL (32.0-36.0); MEAN CORPUSCULAR VOLUME 92 FL (80-99); MEAN PLATELET VOLUME 5.6 FL (6.5-10.1); MONOCYTES % (AUTO) 13.5 % (1.0-10.0); NEUTROPHILS % (AUTO) 57.6 % (45.0-75.0); PLATELET COUNT 140 K/UL (150-450); RED BLOOD COUNT 2.88 M/UL (4.20-5.40); RED CELL DISTRIBUTION WIDTH 15.4 % (11.6-14.8); WHITE BLOOD COUNT 5.1 K/UL (4.8-10.8)
[2016-11-20 07:17] LABS: ALBUMIN/GLOBULIN RATIO 0.5 (1.0-2.7); ANION GAP 10 (5-15); ASPARTATE AMINO TRANSFERASE 13 U/L (15-37); CALCIUM 8.4 MG/DL (8.5-10.1); CARBON DIOXIDE 27 MMOL/L (21-32); CHLORIDE 101 MMOL/L (98-107); CREATININE 3.8 MG/DL (0.55-1.30); POTASSIUM 3.2 MMOL/L (3.5-5.1); SODIUM 137 MMOL/L (136-145); TOTAL PROTEIN 5.7 G/DL (6.4-8.2)
[2016-11-20 07:20] LABS: ALANINE AMINOTRANSFERASE < 6 U/L (12-78)
[2016-11-20] MEDS ORDERED: KCl 10% 40mEq/30ml liquid NG ONE (08:00)
[2016-11-20] MEDS: Eliquis 2.5mg tablet ORAL SCH (09:00)
--- NOTE | 2016-11-20 09:32 | Pulmonolgy Critical Care Note ---
Critical Care - Asmt/Plan Assessment/Plan: ASSESSMENT chronic hypercapnic respiratory failure VDRF/trch anasarca CHF diastolic acute on chronic renal failure coagulopathy ( due to a/coagulation and sepsis) cellulitis BLE and R arm hypotension anemia of chronic disease anemia requiring blood transfusion pulmonary HTN morbid obesity Pickwickian syndrome MINA permanent A fib chronic lymphedema with venous stasis BLE hx of breast Ca PLAN OF CARE ICU Vent/trach care pulmonary toilet ABG stable on current settings, keep as is and titrate as needed trach revision was cancelled due to elevated INR hold Eliquis vit K x1 today recheck INR in am will do FFP later when a new date of surgery confirmed heme follows mixing study ordered diuresis with Lasix gtt and Zaroxolyn CXR without much change, still with interstitial edema/CHF BP low, start Midodrine for BP management creat worse nephro follows considering possibility of HD abx, ID follows blood cx negative wound care as per wound nurse recommendations venous Duplex BLE and BUE negative Arterial Duplex BLE ( was a technically difficult study), but no evidence of stenosis monitor HH, transfuse prn anemia w/up c/w anemia of chronic disease EPO added by nephro bowel regimen case discussed and evaluated by supervising physician Critical Care - Objective Last 24 Hour Vital Signs Date Time Temp Pulse Resp B/P (MAP) Pulse Ox O2 Delivery O2 Flow Rate FiO2 11/20/16 08:00 30 11/20/16 08:00 99.5 73 20 85/42 97 Mechanical Ventilator 30 11/20/16 07:00 74 20 73/40 97 Mechanical Ventilator 30 11/20/16 06:00 69 20 85/49 97 Mechanical Ventilator 30 11/20/16 05:30 67 20 30 11/20/16 05:00 99.2 75 20 82/33 98 Mechanical Ventilator 30 11/20/16 04:00 30 11/20/16 04:00 71 11/20/16 04:00 75 20 78/33 94 Mechanical Ventilator 30 11/20/16 03:51 62 20 30 11/20/16 03:00 77 20 81/55 97 Mechanical Ventilator 30 11/20/16 02:00 71 20 81/55 97 Mechanical Ventilator 30 11/20/16 01:21 88 20 30 11/20/16 01:00 75 20 84/46 97 Mechanical Ventilator 30 11/20/16 00:00 99.3 86 20 81/55 94 Mechanical Ventilator 30 11/20/16 00:00 30 11/20/16 00:00 86 11/19/16 23:16 65 20 30 11/19/16 23:00 70 20 Mechanical Ventilator 30 11/19/16 23:00 70 20 105/62 97 Mechanical Ventilator 30 11/19/16 22:00 65 20 83/41 97 Mechanical Ventilator 30 11/19/16 21:25 68 20 30 11/19/16 21:00 79 20 83/42 98 Mechanical Ventilator 30 11/19/16 20:00 99.0 81 20 105/40 94 Mechanical Ventilator 30 11/19/16 20:00 81 11/19/16 20:00 30 11/19/16 19:22 70 20 30 11/19/16 19:00 67 20 83/38 98 Mechanical Ventilator 30 11/19/16 18:00 70 20 112/51 96 Mechanical Ventilator 30 11/19/16 17:00 70 20 84/41 96 Mechanical Ventilator 30 11/19/16 16:57 69 20 30 11/19/16 16:00 98.1 65 20 90/36 98 Mechanical Ventilator 30 11/19/16 16:00 71 11/19/16 16:00 30 11/19/16 15:23 20 30 11/19/16 15:00 70 20 85/38 98 Mechanical Ventilator 30 11/19/16 14:00 67 22 96/40 97 Mechanical Ventilator 30 11/19/16 13:07 77 20 30 11/19/16 13:00 67 20 95/40 98 Mechanical Ventilator 30 11/19/16 12:00 98.5 68 24 88/44 100 Mechanical Ventilator 30 11/19/16 12:00 69 11/19/16 11:00 65 22 91/42 98 Mechanical Ventilator 30 11/19/16 10:41 74 20 30 11/19/16 10:00 65 20 94/31 100 Mechanical Ventilator 30 11/19/16 10:00 98.7 Status: awake, other - alert, responsive, bedridden, vent dependent morbidly obese female Condition: critical HEENT: atraumatic, normocephalic Lungs: other - decreased BS Heart: HR/BP stable, irregular - A fib on tele, rate controlled Abdomen: soft, non-tender - obese, active bowel sounds Extremities: other - anasarca; R > L ; BLE edema +3, blanching erythema anteriorly from distal leg up to below knee, +warmth, non TTP, no drainage; Critical Care - Subjective ROS Limited/Unobtainable: Yes Interval Events: on Lasix gtt trach revision cancelled due to elevated INR creat worse BP low Condition: critical IV Access: peripheral EKG Rhythm: Atrial Fibrillation - rate controlled FI02: 30 Vent Support Breath Rate: 20 Vent Support Mode: AC Vent Tidal Volume: 600 Sputum Amount: Large PEEP: 5.0 PIP: 48 Drips: Lasix gtt 10 ml/hr I&O: Intake and Output 11/20/16 11/21/16 19:00 07:00 Output Total 200 ml Balance -200 ml Output Urine Total 200 ml CXR: 11/19 - Interstitial edema/CHF unchanged ET-Tube: 6.0 ET Position: 15 Rojas ([facility]),Jaquelin MAYER Nov 20, 2016 09:32
[2016-11-20] MEDS: Miralax 17gm pkt ORAL SCH (09:33)
[2016-11-20] MEDS: Vitamin B-12 500mcg tab ORAL SCH (09:34)
[2016-11-20] MEDS: Pantoprazole Inj IVP SCH (09:34)
[2016-11-20] MEDS: Docusate 100mg cap ORAL SCH ×2 (09:36→17:55)
[2016-11-20] MEDS: Revatio 20mg tab ORAL SCH ×3 (09:36→17:55)
--- NOTE | 2016-11-20 09:47 | Infectious Diseases Prog Note ---
Assessment/Plan Assessment/Plan Abx: IV Vancomycin 11/11-11/12; 11/17- IV Cefepime 11/11-11/12 IV Ancef 11/12- Flagyl x1 11/11 Assesment: Cellulitis BLE and R arm- in the setting of chronic leg edema/venous stasis- Limited Venous duplex BLE (non diagnostic), no DVT R arm; mild improved; Main component is of venous stasis so erythema would not completely resolve with abx -Bcx Neg Anasarca/ bilateral leg lymphedema -CXR 11/19: Interstitial edema/CHF unchanged Afebrile, no leukocytosis REnal insufficiency COPD Diastolic CHF chronic resp failure, vent/trach dependent, Gtbue, pAfib, pleural effusion, MINA , CKD, GERD, morbid obesity, [place] resident Plan: -Continue Ancef for cellulitis (abx #11/20) and Continue IV Vancomycin #4 ( added for additional gram positive coverage) -extremity elevation -edema management -f/u final Bcx -Monitor CBC/BMP, temperatures -Per RN, difficulty IV acces, ok to Place PICC line if needed for access. Thank you for this consultation. Will continue to follow along with you. 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 RN. Subjective Allergies: Coded Allergies: AMOXICILLIN (Verified Allergy, Mild, RASH, 09/30/16) PENICILLINS (Unverified Allergy, Unknown, 09/30/16) Subjective afebrile no leukocytosis remains in ICU Objective Vital Signs Last 24 Hour Vital Signs Date Time Temp Pulse Resp B/P (MAP) Pulse Ox O2 Delivery O2 Flow Rate FiO2 11/20/16 08:00 30 11/20/16 08:00 99.5 73 20 85/42 97 Mechanical Ventilator 30 11/20/16 07:00 74 20 73/40 97 Mechanical Ventilator 30 11/20/16 06:00 69 20 85/49 97 Mechanical Ventilator 30 11/20/16 05:30 67 20 30 11/20/16 05:00 99.2 75 20 82/33 98 Mechanical Ventilator 30 11/20/16 04:00 30 11/20/16 04:00 71 11/20/16 04:00 75 20 78/33 94 Mechanical Ventilator 30 11/20/16 03:51 62 20 30 11/20/16 03:00 77 20 81/55 97 Mechanical Ventilator 30 11/20/16 02:00 71 20 81/55 97 Mechanical Ventilator 30 11/20/16 01:21 88 20 30 11/20/16 01:00 75 20 84/46 97 Mechanical Ventilator 30 11/20/16 00:00 99.3 86 20 81/55 94 Mechanical Ventilator 30 11/20/16 00:00 30 11/20/16 00:00 86 11/19/16 23:16 65 20 30 11/19/16 23:00 70 20 Mechanical Ventilator 30 11/19/16 23:00 70 20 105/62 97 Mechanical Ventilator 30 11/19/16 22:00 65 20 83/41 97 Mechanical Ventilator 30 11/19/16 21:25 68 20 30 11/19/16 21:00 79 20 83/42 98 Mechanical Ventilator 30 11/19/16 20:00 99.0 81 20 105/40 94 Mechanical Ventilator 30 11/19/16 20:00 81 11/19/16 20:00 30 11/19/16 19:22 70 20 30 11/19/16 19:00 67 20 83/38 98 Mechanical Ventilator 30 11/19/16 18:00 70 20 112/51 96 Mechanical Ventilator 30 11/19/16 17:00 70 20 84/41 96 Mechanical Ventilator 30 11/19/16 16:57 69 20 30 11/19/16 16:00 98.1 65 20 90/36 98 Mechanical Ventilator 30 11/19/16 16:00 71 11/19/16 16:00 30 11/19/16 15:23 20 30 11/19/16 15:00 70 20 85/38 98 Mechanical Ventilator 30 11/19/16 14:00 67 22 96/40 97 Mechanical Ventilator 30 11/19/16 13:07 77 20 30 11/19/16 13:00 67 20 95/40 98 Mechanical Ventilator 30 11/19/16 12:00 98.5 68 24 88/44 100 Mechanical Ventilator 30 11/19/16 12:00 69 11/19/16 11:00 65 22 91/42 98 Mechanical Ventilator 30 11/19/16 10:41 74 20 30 11/19/16 10:00 65 20 94/31 100 Mechanical Ventilator 30 11/19/16 10:00 98.7 Height (Feet): 5 Height (Inches): 5.00 Weight (Pounds): 409 Objective General Appearance: WD/WN HEENT: trach in palce, Respiratory/Chest: chest wall non-tender, lungs clear Cardiovascular/Chest: normal peripheral pulses, normal rate Abdomen: normal bowel sounds, non tender Ext: anasarca; R > L LE swelling, both legs with blanching erythema anteriorly from distal leg up to below knee, +warmth, non TTP, no drainage; R arm swelling, erythematous,. background changes of chronic lymphedema on b/l legs; minimally improved reviewed Laboratory Tests Test 11/19/16 14:05 11/20/16 06:00 Prothrombin Time 42.2 SEC (9.30-11.50) H Prothromb Time International Ratio 4.0 (0.9-1.1) H Activated Partial Thromboplast Time 42 SEC (23-33) H White Blood Count 5.1 K/UL (4.8-10.8) Red Blood Count 2.88 M/UL (4.20-5.40) L Hemoglobin 8.3 G/DL (12.0-16.0) L Hematocrit 26.3 % (37.0-47.0) L Mean Corpuscular Volume 92 FL (80-99) Mean Corpuscular Hemoglobin 28.9 PG (27.0-31.0) Mean Corpuscular Hemoglobin Concent 31.6 G/DL (32.0-36.0) L Red Cell Distribution Width 15.4 % (11.6-14.8) H Platelet Count 140 K/UL (150-450) L Mean Platelet Volume 5.6 FL (6.5-10.1) L Neutrophils (%) (Auto) 57.6 % (45.0-75.0) Lymphocytes (%) (Auto) 22.2 % (20.0-45.0) Monocytes (%) (Auto) 13.5 % (1.0-10.0) H Eosinophils (%) (Auto) 5.4 % (0.0-3.0) H Basophils (%) (Auto) 1.3 % (0.0-2.0) Sodium Level 137 MMOL/L (136-145) Potassium Level 3.2 MMOL/L (3.5-5.1) L Chloride Level 101 MMOL/L (98-107) Carbon Dioxide Level 27 MMOL/L (21-32) Anion Gap 10 (5-15) Blood Urea Nitrogen 61 mg/dL (7-18) H Creatinine 3.8 MG/DL (0.55-1.30) H Estimat Glomerular Filtration Rate mL/min (>60) Glucose Level 78 MG/DL (74-106) Calcium Level 8.4 MG/DL (8.5-10.1) L Total Bilirubin 0.4 MG/DL (0.2-1.0) Aspartate Amino Transf (AST/SGOT) 13 U/L (15-37) L Alanine Aminotransferase (ALT/SGPT) < 6 U/L (12-78) L Alkaline Phosphatase 55 U/L (46-116) Pro-B-Type Natriuretic Peptide 80693 (0-125) H Total Protein 5.7 G/DL (6.4-8.2) L Albumin 1.8 G/DL (3.4-5.0) L Globulin 3.9 g/dL Albumin/Globulin Ratio 0.5 (1.0-2.7) L Random Vancomycin Level 24.2 ug/mL Current Medications Medications (Trade) Dose Ordered Sig/Kalyn Route PRN Reason Start Time Stop Time Status Last Admin Dose Admin Acetaminophen (Tylenol) 650 mg Q4H PRN ORAL Mild Pain/Temp > 100.5 11/14/16 08:00 12/12/16 07:59 11/20/16 09:38 Allopurinol (Allopurinol) 300 mg DAILY ORAL 11/16/16 10:00 12/16/16 09:59 11/20/16 09:35 Cefazolin Sodium 50 ml @ 100 mls/hr Q12HR@0300,1500 IV 11/15/16 15:00 11/22/16 14:59 11/20/16 02:32 Cyanocobalamin (Vitamin B-12) 3,000 mcg DAILY ORAL 11/14/16 09:00 12/12/16 08:59 11/20/16 09:34 Diphenhydramine HCl (Benadryl) 25 mg Q6H PRN IVP Itching 11/19/16 20:15 12/19/16 20:14 11/19/16 20:28 Docusate Sodium (Colace) 100 mg TWICE A DAY ORAL 11/14/16 09:00 12/12/16 08:59 11/20/16 09:36 Epoetin Santos (Procrit (for non ESRD use)) 10,000 units TUE-TUE-TUE SUBQ 11/17/16 21:00 12/17/16 20:59 11/19/16 21:35 Folic Acid (Folate) 1 mg DAILY ORAL 11/14/16 09:00 12/12/16 08:59 11/20/16 09:38 Furosemide 100 mg/ Dextrose 100 ml @ 10 mls/hr Q10H IV 11/15/16 15:00 12/15/16 14:59 11/20/16 05:28 Gabapentin (Neurontin) 600 mg BID ORAL 11/14/16 09:00 12/14/16 08:59 11/20/16 09:34 Lorazepam (Ativan 2mg/ml 1ml) 2 mg Q2H PRN IV For Anxiety 11/14/16 08:00 11/21/16 07:59 11/16/16 06:32 Metolazone (Zaroxolyn) 10 mg DAILY ORAL 11/18/16 09:00 12/18/16 08:59 11/20/16 09:35 Midodrine (Pro-Amatine) 2.5 mg THREE TIMES A DAY ORAL 11/20/16 13:00 12/20/16 12:59 Morphine Sulfate (Morphine Sulfate) 6 mg Q3H PRN IVP Severe Pain (Pain Scale 7-10) 11/19/16 19:50 11/26/16 19:49 Pantoprazole (Protonix) 40 mg DAILY IVP 11/14/16 09:00 12/12/16 08:59 11/20/16 09:34 Phytonadione 10 mg/Dextrose 56 ml @ 112 mls/hr ONCE ONCE IVPB 11/20/16 11:00 11/20/16 11:29 Polyethylene Glycol (Miralax) 17 gm DAILY ORAL 11/14/16 09:00 12/12/16 08:59 11/20/16 09:33 Pravastatin Sodium (Pravachol) 20 mg BEDTIME ORAL 11/14/16 21:00 12/12/16 20:59 11/19/16 20:28 Sevelamer Carbonate (Renvela) 800 mg THREE TIMES A DAY ORAL 11/14/16 09:00 12/12/16 08:59 11/20/16 09:36 Sildenafil Citrate (Revatio) 20 mg THREE TIMES A DAY ORAL 11/14/16 09:00 12/12/16 08:59 11/20/16 09:36 Vancomycin HCl (Vanco rx to dose) 1 ea DAILY PRN MISC Per rx protocol 11/17/16 13:15 12/17/16 13:14 Vancomycin HCl 1 gm/Dextrose 275 ml @ 183.708 mls/hr ONCE ONCE IVPB 11/21/16 09:00 11/21/16 10:29 Danielle Guo M.D. Nov 20, 2016 09:47
[2016-11-20] MEDS: DiphenhydrAMINE 50mg/ml Inj IVP PRN (09:56)
--- NOTE | 2016-11-20 10:10 | Diagnostic Imaging Report ---
Indication: Dyspnea Comparison: 11/19/16 A single view chest radiograph was obtained. Findings: Pulmonary vascular congestion and interstitial edema are demonstrated. Heart is enlarged. There is a tracheostomy present. Findings appear unchanged. Impression: No change from prior exam one day earlier. Interstitial edema/CHF unchanged Tracheostomy tube
[2016-11-20] MEDS ORDERED: Phytonadione 10 MG in D5W 55 ML IVPB ONE ×2 (11:00→22:45)
--- NOTE | 2016-11-20 11:16 | General Progress Note ---
Assessment/Plan Status: stable Status Narrative Cr rising Assessment/Plan Cellulitis BLE and R arm- in the setting of chronic leg edema- r/o DVT Anasarca/ bilateral leg lymphedema CKD- and acute renal failure - Cr 3.1 unchanged since last admission- Acute respiratory failure s/p Trach Obese COPD , CHF, Diastolic MINA UTI Anemia GI Bleed, GI bleeding At Fib Pulm HTN h/o Low B12 plan: due trach change today zaroxyllin- lasix drip add EPOGEN 24 H urine collection in process: CrCl 6 Monitor renal parameters- optimize cardiac and pulm status avoid nephrotoxics- pulmonary support- transfuse as needed consider HD Subjective ROS Limited/Unobtainable: No Constitutional: Reports: malaise Allergies: Coded Allergies: AMOXICILLIN (Verified Allergy, Mild, RASH, 09/30/16) PENICILLINS (Unverified Allergy, Unknown, 09/30/16) Objective Last 24 Hour Vital Signs Date Time Temp Pulse Resp B/P (MAP) Pulse Ox O2 Delivery O2 Flow Rate FiO2 11/20/16 11:00 61 20 30 11/20/16 11:00 71 20 85/40 97 Mechanical Ventilator 30 11/20/16 10:00 71 20 109/55 97 Mechanical Ventilator 30 11/20/16 09:00 62 20 30 11/20/16 09:00 73 20 88/49 97 Mechanical Ventilator 30 11/20/16 09:00 94 11/20/16 08:00 30 11/20/16 08:00 99.5 73 20 85/42 97 Mechanical Ventilator 30 11/20/16 07:00 74 20 73/40 97 Mechanical Ventilator 30 11/20/16 07:00 60 20 30 11/20/16 06:00 69 20 85/49 97 Mechanical Ventilator 30 11/20/16 05:30 67 20 30 11/20/16 05:00 99.2 75 20 82/33 98 Mechanical Ventilator 30 11/20/16 04:00 30 11/20/16 04:00 71 11/20/16 04:00 75 20 78/33 94 Mechanical Ventilator 30 11/20/16 03:51 62 20 30 11/20/16 03:00 77 20 81/55 97 Mechanical Ventilator 30 11/20/16 02:00 71 20 81/55 97 Mechanical Ventilator 30 11/20/16 01:21 88 20 30 11/20/16 01:00 75 20 84/46 97 Mechanical Ventilator 30 11/20/16 00:00 99.3 86 20 81/55 94 Mechanical Ventilator 30 11/20/16 00:00 30 11/20/16 00:00 86 11/19/16 23:16 65 20 30 11/19/16 23:00 70 20 Mechanical Ventilator 30 11/19/16 23:00 70 20 105/62 97 Mechanical Ventilator 30 11/19/16 22:00 65 20 83/41 97 Mechanical Ventilator 30 11/19/16 21:25 68 20 30 11/19/16 21:00 79 20 83/42 98 Mechanical Ventilator 30 11/19/16 20:00 99.0 81 20 105/40 94 Mechanical Ventilator 30 11/19/16 20:00 81 11/19/16 20:00 30 11/19/16 19:22 70 20 30 11/19/16 19:00 67 20 83/38 98 Mechanical Ventilator 30 11/19/16 18:00 70 20 112/51 96 Mechanical Ventilator 30 11/19/16 17:00 70 20 84/41 96 Mechanical Ventilator 30 11/19/16 16:57 69 20 30 11/19/16 16:00 98.1 65 20 90/36 98 Mechanical Ventilator 30 11/19/16 16:00 71 11/19/16 16:00 30 11/19/16 15:23 20 30 11/19/16 15:00 70 20 85/38 98 Mechanical Ventilator 30 11/19/16 14:00 67 22 96/40 97 Mechanical Ventilator 30 11/19/16 13:07 77 20 30 11/19/16 13:00 67 20 95/40 98 Mechanical Ventilator 30 11/19/16 12:00 98.5 68 24 88/44 100 Mechanical Ventilator 30 11/19/16 12:00 69 Intake and Output 11/20/16 11/21/16 19:00 07:00 Output Total 475 ml Balance -475 ml Output Urine Total 475 ml Laboratory Tests 11/19/16 14:05: Prothrombin Time 42.2H, Prothromb Time International Ratio 4.0H, Activated Partial Thromboplast Time 42H 11/20/16 06:00: White Blood Count 5.1, Red Blood Count 2.88L, Hemoglobin 8.3L, Hematocrit 26.3L , Mean Corpuscular Volume 92, Mean Corpuscular Hemoglobin 28.9, Mean Corpuscular Hemoglobin Concent 31.6L, Red Cell Distribution Width 15.4H, Platelet Count 140L, Mean Platelet Volume 5.6L, Neutrophils (%) (Auto) 57.6, Lymphocytes (%) (Auto) 22.2, Monocytes (%) (Auto) 13.5H, Eosinophils (%) (Auto) 5.4H, Basophils (%) (Auto) 1.3, Sodium Level 137, Potassium Level 3.2L, Chloride Level 101, Carbon Dioxide Level 27, Anion Gap 10, Blood Urea Nitrogen 61H, Creatinine 3.8H, Estimat Glomerular Filtration Rate , Glucose Level 78, Calcium Level 8.4L, Total Bilirubin 0.4, Aspartate Amino Transf (AST/SGOT) 13L, Alanine Aminotransferase (ALT/SGPT) < 6L, Alkaline Phosphatase 55, Pro-B-Type Natriuretic Peptide 83554R, Total Protein 5.7L, Albumin 1.8L, Globulin 3.9, Albumin/Globulin Ratio 0.5L, Random Vancomycin Level 24.2 Height (Feet): 5 Height (Inches): 5.00 Weight (Pounds): 409 General Appearance: no apparent distress Objective BP low , but doubtful measurement COURTNEY LOPEZ Nov 20, 2016 11:16
[2016-11-20 15:08] LABS: PHOSPHORUS 3.3 MG/DL (2.5-4.9)
--- NOTE | 2016-11-20 15:12 | General Progress Note ---
Assessment/Plan Assessment/Plan This is a 76-year-old, morbidly obese female, admitted with anasarca and cellulitis of the lower leg. The patient was admitted to the directr observation unit on the monitor with the following medical problems. now transfered to icu as of 11-14-16, co of pruritis 1. Anasarca. She appears to be markedly swollen. She will need diuresis. Place the patient on Lasix 20 mg intravenous for now q.12 hours. Cardiology and Pulmonary on the case. We will follow orders. Check laboratory studies daily. conitnue zaorxylin and lasix drip 10 mg per hour, discussed with / Zoila may need dialysis if she doesn't respond to diuresis, 24 hour urine collection ordered 2. Chronic hypercapnic respiratory failure. Continue with vent support per Pulmonary. 3 anemia. s./p transfusion of PRBC Continue monitoring CBC daily. patient to start procrit per nephrology 4. Pulmonary hypertension. hold Eliquis 2.5 mg twice a day until trach is refitted 5. Chronic kidney disease. We will monitor BUN and creatinine. Gentle diuresis for now. Nephrology has been consulted. further workup per nephrology. avoid nephrotoxic agents 6. DVT prophylaxis. The patient is on Eliquis. The patient is Full Code. patient is severely volume overloaded will transfer to ICU for closer monitoring., ABG prn, chest xray and daily weights continue duresis, monitor bp , consider midodrin 5 mg tid if pressure drop, am labs discussed at length with icu nursing staff and consultants elevate right arm with pillow while reclining for revesion of trach today, but cancelled due to elevated inr discussed with icu nurse benadryl 25 mg iv q 6 prn itching Subjective Date patient seen: Nov 20, 2016 ROS Limited/Unobtainable: Yes Allergies: Coded Allergies: AMOXICILLIN (Verified Allergy, Mild, RASH, 09/30/16) PENICILLINS (Unverified Allergy, Unknown, 09/30/16) Objective Last 24 Hour Vital Signs Date Time Temp Pulse Resp B/P (MAP) Pulse Ox O2 Delivery O2 Flow Rate FiO2 11/20/16 14:00 66 20 66/28 97 Mechanical Ventilator 30 11/20/16 13:00 63 20 30 11/20/16 13:00 79 20 87/42 97 Mechanical Ventilator 30 11/20/16 12:00 30 11/20/16 12:00 99.0 79 20 69/30 97 Mechanical Ventilator 30 11/20/16 12:00 79 11/20/16 11:00 61 20 30 11/20/16 11:00 71 20 85/40 97 Mechanical Ventilator 30 11/20/16 10:00 71 20 109/55 97 Mechanical Ventilator 30 11/20/16 09:00 62 20 30 11/20/16 09:00 73 20 88/49 97 Mechanical Ventilator 30 11/20/16 09:00 94 11/20/16 08:00 30 11/20/16 08:00 99.5 73 20 85/42 97 Mechanical Ventilator 30 11/20/16 07:00 74 20 73/40 97 Mechanical Ventilator 30 11/20/16 07:00 60 20 30 11/20/16 06:00 69 20 85/49 97 Mechanical Ventilator 30 11/20/16 05:30 67 20 30 11/20/16 05:00 99.2 75 20 82/33 98 Mechanical Ventilator 30 11/20/16 04:00 30 11/20/16 04:00 71 11/20/16 04:00 75 20 78/33 94 Mechanical Ventilator 30 11/20/16 03:51 62 20 30 11/20/16 03:00 77 20 81/55 97 Mechanical Ventilator 30 11/20/16 02:00 71 20 81/55 97 Mechanical Ventilator 30 11/20/16 01:21 88 20 30 11/20/16 01:00 75 20 84/46 97 Mechanical Ventilator 30 11/20/16 00:00 99.3 86 20 81/55 94 Mechanical Ventilator 30 11/20/16 00:00 30 11/20/16 00:00 86 11/19/16 23:16 65 20 30 11/19/16 23:00 70 20 Mechanical Ventilator 30 11/19/16 23:00 70 20 105/62 97 Mechanical Ventilator 30 11/19/16 22:00 65 20 83/41 97 Mechanical Ventilator 30 11/19/16 21:25 68 20 30 11/19/16 21:00 79 20 83/42 98 Mechanical Ventilator 30 11/19/16 20:00 99.0 81 20 105/40 94 Mechanical Ventilator 30 11/19/16 20:00 81 11/19/16 20:00 30 11/19/16 19:22 70 20 30 11/19/16 19:00 67 20 83/38 98 Mechanical Ventilator 30 11/19/16 18:00 70 20 112/51 96 Mechanical Ventilator 30 11/19/16 17:00 70 20 84/41 96 Mechanical Ventilator 30 11/19/16 16:57 69 20 30 11/19/16 16:00 98.1 65 20 90/36 98 Mechanical Ventilator 30 11/19/16 16:00 71 11/19/16 16:00 30 11/19/16 15:23 20 30 Intake and Output 11/20/16 11/21/16 19:00 07:00 Output Total 655 ml Balance -655 ml Output Urine Total 655 ml Laboratory Tests 11/20/16 06:00: White Blood Count 5.1, Red Blood Count 2.88L, Hemoglobin 8.3L, Hematocrit 26.3L , Mean Corpuscular Volume 92, Mean Corpuscular Hemoglobin 28.9, Mean Corpuscular Hemoglobin Concent 31.6L, Red Cell Distribution Width 15.4H, Platelet Count 140L, Mean Platelet Volume 5.6L, Neutrophils (%) (Auto) 57.6, Lymphocytes (%) (Auto) 22.2, Monocytes (%) (Auto) 13.5H, Eosinophils (%) (Auto) 5.4H, Basophils (%) (Auto) 1.3, Sodium Level 137, Potassium Level 3.2L, Chloride Level 101, Carbon Dioxide Level 27, Anion Gap 10, Blood Urea Nitrogen 61H, Creatinine 3.8H, Estimat Glomerular Filtration Rate , Glucose Level 78, Calcium Level 8.4L, Total Bilirubin 0.4, Aspartate Amino Transf (AST/SGOT) 13L, Alanine Aminotransferase (ALT/SGPT) < 6L, Alkaline Phosphatase 55, Pro-B-Type Natriuretic Peptide 44010G, Total Protein 5.7L, Albumin 1.8L, Globulin 3.9, Albumin/Globulin Ratio 0.5L, Random Vancomycin Level 24.2 11/20/16 14:35: Prothrombin Time [Pending], Prothromb Time International Ratio [Pending], Phosphorus Level [Pending], Magnesium Level [Pending], Folate [Pending] Height (Feet): 5 Height (Inches): 5.00 Weight (Pounds): 409 General Appearance: mild distress, morbidly obese EENT: PERRL/EOMI, pharynx normal Neck: non-tender, supple Cardiovascular: normal rate, regular rhythm, no gallop/murmur, no JVD Respiratory/Chest: decreased breath sounds Abdomen: non tender, soft, no mass, distended Extremities: swelling Edema: 3+ Arm (L), 3+ Arm (R), 4+ Leg (L), 4+ Leg (R), 4+ Pedal (L), 4+ Pedal ( R), 4+ Generalized Edema: severe edema Neurologic: coater helper II-XII grossly normal, oriented x 3, responsive Skin: rash Lymphatic: normal anterior cervical (L), normal anterior cervical (R), normal posterior cervical (L), normal posterior cervical (R), normal submandibular (L) , normal submandibular (R), normal supraclavicular (L), normal supraclavicular ( R), normal axillary (L), normal axillary (R), normal inguinal (L), normal inguinal (R), normal other Manny Nolan MD Nov 20, 2016 15:12
[2016-11-20 15:21] LABS: INR 3.9 (0.9-1.1); PROTHROMBIN TIME 41.6 SEC (9.30-11.50)
[2016-11-20 16:23] LABS: MAGNESIUM 1.7 MG/DL (1.8-2.4)
--- NOTE | 2016-11-20 21:38 | General Progress Note ---
Assessment/Plan Assessment/Plan ASSESSMENT/RECS: # Coagulopathy 2/2 sepsis --> have ordered for vitamin K as well as mixing study #. Anemia secondary to chronic disease. Continue to closely monitor. Work up reviewed --> s/p transfusion. watch counts, transfuse if hgb is below 8 #. Anemia of kidney disease. Nephrology service following #. History of breast cancer, currently on letrozole. #. Chronic ventilator dependant, to receive trach. procedure on hold due to elevated inr #. Permanent atrial fibrillation. She is on apixaban. #. Cellulitis and chronic lymphedema of the bilateral lower extremities. Continue to monitor. On abx per id service #. Congestive heart failure. Subjective ROS Limited/Unobtainable: Yes Allergies: Coded Allergies: AMOXICILLIN (Verified Allergy, Mild, RASH, 09/30/16) PENICILLINS (Unverified Allergy, Unknown, 09/30/16) Subjective sleeping Objective Last 24 Hour Vital Signs Date Time Temp Pulse Resp B/P (MAP) Pulse Ox O2 Delivery O2 Flow Rate FiO2 11/20/16 21:07 64 20 30 11/20/16 20:00 30 11/20/16 20:00 72 11/20/16 20:00 98.9 75 30 98/62 96 Mechanical Ventilator 30 11/20/16 19:00 81 21 109/79 96 Mechanical Ventilator 30 11/20/16 18:49 60 20 30 11/20/16 18:02 59 21 92/52 97 Mechanical Ventilator 30 11/20/16 17:00 61 20 30 11/20/16 17:00 72 20 81/31 97 Mechanical Ventilator 30 11/20/16 16:00 30 11/20/16 16:00 99.4 66 20 77/32 97 Mechanical Ventilator 30 11/20/16 16:00 78 11/20/16 15:00 62 20 30 11/20/16 15:00 71 20 83/50 97 Mechanical Ventilator 30 11/20/16 14:00 66 20 66/28 97 Mechanical Ventilator 30 11/20/16 13:00 63 20 30 11/20/16 13:00 79 20 87/42 97 Mechanical Ventilator 30 11/20/16 12:00 30 11/20/16 12:00 99.0 79 20 69/30 97 Mechanical Ventilator 30 11/20/16 12:00 79 11/20/16 11:00 61 20 30 11/20/16 11:00 71 20 85/40 97 Mechanical Ventilator 30 11/20/16 10:00 71 20 109/55 97 Mechanical Ventilator 30 11/20/16 09:00 62 20 30 11/20/16 09:00 73 20 88/49 97 Mechanical Ventilator 30 11/20/16 09:00 94 11/20/16 08:00 30 11/20/16 08:00 99.5 73 20 85/42 97 Mechanical Ventilator 30 11/20/16 07:00 74 20 73/40 97 Mechanical Ventilator 30 11/20/16 07:00 60 20 30 11/20/16 06:00 69 20 85/49 97 Mechanical Ventilator 30 11/20/16 05:30 67 20 30 11/20/16 05:00 99.2 75 20 82/33 98 Mechanical Ventilator 30 11/20/16 04:00 30 11/20/16 04:00 71 11/20/16 04:00 75 20 78/33 94 Mechanical Ventilator 30 11/20/16 03:51 62 20 30 11/20/16 03:00 77 20 81/55 97 Mechanical Ventilator 30 11/20/16 02:00 71 20 81/55 97 Mechanical Ventilator 30 11/20/16 01:21 88 20 30 11/20/16 01:00 75 20 84/46 97 Mechanical Ventilator 30 11/20/16 00:00 99.3 86 20 81/55 94 Mechanical Ventilator 30 11/20/16 00:00 30 11/20/16 00:00 86 11/19/16 23:16 65 20 30 11/19/16 23:00 70 20 Mechanical Ventilator 30 11/19/16 23:00 70 20 105/62 97 Mechanical Ventilator 30 11/19/16 22:00 65 20 83/41 97 Mechanical Ventilator 30 Intake and Output 11/20/16 11/21/16 19:00 07:00 Intake Total 130 ml 10 ml Output Total 1080 ml 65 ml Balance -950 ml -55 ml IV Total 130 ml 10 ml Output Urine Total 1080 ml 65 ml Laboratory Tests 11/20/16 06:00: White Blood Count 5.1, Red Blood Count 2.88L, Hemoglobin 8.3L, Hematocrit 26.3L , Mean Corpuscular Volume 92, Mean Corpuscular Hemoglobin 28.9, Mean Corpuscular Hemoglobin Concent 31.6L, Red Cell Distribution Width 15.4H, Platelet Count 140L, Mean Platelet Volume 5.6L, Neutrophils (%) (Auto) 57.6, Lymphocytes (%) (Auto) 22.2, Monocytes (%) (Auto) 13.5H, Eosinophils (%) (Auto) 5.4H, Basophils (%) (Auto) 1.3, Sodium Level 137, Potassium Level 3.2L, Chloride Level 101, Carbon Dioxide Level 27, Anion Gap 10, Blood Urea Nitrogen 61H, Creatinine 3.8H, Estimat Glomerular Filtration Rate , Glucose Level 78, Calcium Level 8.4L, Total Bilirubin 0.4, Aspartate Amino Transf (AST/SGOT) 13L, Alanine Aminotransferase (ALT/SGPT) < 6L, Alkaline Phosphatase 55, Pro-B-Type Natriuretic Peptide 50400S, Total Protein 5.7L, Albumin 1.8L, Globulin 3.9, Albumin/Globulin Ratio 0.5L, Random Vancomycin Level 24.2 11/20/16 14:35: Prothrombin Time 41.6H, Prothromb Time International Ratio 3.9H, Phosphorus Level 3.3, Magnesium Level 1.7L, Folate 33.2H Height (Feet): 5 Height (Inches): 5.00 Weight (Pounds): 409 General Appearance: no apparent distress EENT: normal ENT inspection Neck: non-tender Cardiovascular: normal peripheral pulses Abdomen: normal bowel sounds Extremities: normal range of motion, non-tender Edema: mild edema Serafin Haines Nov 20, 2016 21:38
[2016-11-21] VITALS (24 sets, daily range): BP systolic 56–99; BP diastolic 30–73
[2016-11-21] MEDS: ceFAZolin 2gm/50ml Premix 50 ML IV SCH ×2 (03:05→15:39)
[2016-11-21 06:52] LABS: BASOPHILS % (AUTO) 1.5 % (0.0-2.0); EOSINOPHILS % (AUTO) 5.7 % (0.0-3.0); LYMPHOCYTES % (AUTO) 14.1 % (20.0-45.0); MEAN CORPUSCULAR HEMOGLOBIN 29.6 PG (27.0-31.0); MEAN CORPUSCULAR HGB CONC 32.1 G/DL (32.0-36.0); MEAN CORPUSCULAR VOLUME 92 FL (80-99); MEAN PLATELET VOLUME 5.8 FL (6.5-10.1); MONOCYTES % (AUTO) 15.5 % (1.0-10.0); NEUTROPHILS % (AUTO) 63.2 % (45.0-75.0); PLATELET COUNT 143 K/UL (150-450); RED BLOOD COUNT 2.92 M/UL (4.20-5.40); RED CELL DISTRIBUTION WIDTH 15.4 % (11.6-14.8); WHITE BLOOD COUNT 5.7 K/UL (4.8-10.8)
[2016-11-21 07:02] LABS: INR 2.1 (0.9-1.1); PROTHROMBIN TIME 22.3 SEC (9.30-11.50)
[2016-11-21 07:09] LABS: ALANINE AMINOTRANSFERASE < 6 U/L (12-78); ALBUMIN/GLOBULIN RATIO 0.5 (1.0-2.7); ANION GAP 9 (5-15); ASPARTATE AMINO TRANSFERASE 14 U/L (15-37); CALCIUM 8.5 MG/DL (8.5-10.1); CARBON DIOXIDE 27 MMOL/L (21-32); CHLORIDE 103 MMOL/L (98-107); CRP QUANT 5.7 mg/dL (0.00-0.90); MAGNESIUM 3.8 MG/DL (1.8-2.4); PHOSPHORUS 3.4 MG/DL (2.5-4.9); POTASSIUM 3.3 MMOL/L (3.5-5.1); SODIUM 139 MMOL/L (136-145); TOTAL PROTEIN 6.1 G/DL (6.4-8.2); URIC ACID 10.6 MG/DL (2.6-7.2)
[2016-11-21] MEDS ORDERED: Vancomycin 1gm/D5W 275ml IVPB ONE ×2 (09:00)
[2016-11-21] MEDS: Miralax 17gm pkt ORAL SCH (09:00)
--- NOTE | 2016-11-21 09:07 | Infectious Diseases Prog Note ---
Assessment/Plan Assessment/Plan A. Cellulitis of legs & right arm VDRF COPD CKD Anemia Morbid obesity Diastolic CHF P: Continue Ancef & Vancomycin Subjective ROS Limited/Unobtainable: Yes Respiratory: Reports: shortness of breath, dry cough Allergies: Coded Allergies: AMOXICILLIN (Verified Allergy, Mild, RASH, 09/30/16) PENICILLINS (Unverified Allergy, Unknown, 09/30/16) Objective Vital Signs Last 24 Hour Vital Signs Date Time Temp Pulse Resp B/P (MAP) Pulse Ox O2 Delivery O2 Flow Rate FiO2 11/21/16 09:00 66 20 30 11/21/16 07:03 60 20 30 11/21/16 06:00 75 20 71/30 97 Mechanical Ventilator 30 11/21/16 05:10 60 20 30 11/21/16 05:00 75 20 79/33 99 Mechanical Ventilator 30 11/21/16 04:00 98.5 72 20 91/59 98 Mechanical Ventilator 30 11/21/16 04:00 75 11/21/16 04:00 30 11/21/16 03:00 72 19 98/42 98 Mechanical Ventilator 30 11/21/16 02:45 60 20 30 11/21/16 02:00 72 20 93/53 99 Mechanical Ventilator 30 11/21/16 01:00 75 19 88/40 97 Mechanical Ventilator 30 11/21/16 00:52 61 20 30 11/21/16 00:00 72 11/21/16 00:00 98.7 75 20 82/36 99 Mechanical Ventilator 30 11/21/16 00:00 30 11/20/16 23:20 64 20 30 11/20/16 23:00 75 20 85/55 98 Mechanical Ventilator 30 11/20/16 22:00 72 23 78/37 96 Mechanical Ventilator 30 11/20/16 21:07 64 20 30 11/20/16 21:00 72 20 81/48 98 Mechanical Ventilator 30 11/20/16 20:00 30 11/20/16 20:00 72 11/20/16 20:00 98.9 75 30 98/62 96 Mechanical Ventilator 30 11/20/16 19:00 81 21 109/79 96 Mechanical Ventilator 30 11/20/16 18:49 60 20 30 11/20/16 18:02 59 21 92/52 97 Mechanical Ventilator 30 11/20/16 17:00 61 20 30 11/20/16 17:00 72 20 81/31 97 Mechanical Ventilator 30 11/20/16 16:00 30 11/20/16 16:00 99.4 66 20 77/32 97 Mechanical Ventilator 30 11/20/16 16:00 78 11/20/16 15:00 62 20 30 11/20/16 15:00 71 20 83/50 97 Mechanical Ventilator 30 11/20/16 14:00 66 20 66/28 97 Mechanical Ventilator 30 11/20/16 13:00 63 20 30 11/20/16 13:00 79 20 87/42 97 Mechanical Ventilator 30 11/20/16 12:00 30 11/20/16 12:00 99.0 79 20 69/30 97 Mechanical Ventilator 30 11/20/16 12:00 79 11/20/16 11:00 61 20 30 11/20/16 11:00 71 20 85/40 97 Mechanical Ventilator 30 11/20/16 10:00 71 20 109/55 97 Mechanical Ventilator 30 Height (Feet): 5 Height (Inches): 5.00 Weight (Pounds): 403 HEENT: status post trach Respiratory/Chest: lungs clear, other - on ventilator Cardiovascular: normal rate Abdomen: soft, non tender Extremities: other - generalized edema Skin: other - erythema of legs Neurologic/Psychiatric: alert, responsive Laboratory Tests Test 11/20/16 14:35 11/21/16 05:30 Prothrombin Time 41.6 SEC (9.30-11.50) H 22.3 SEC (9.30-11.50) H Prothromb Time International Ratio 3.9 (0.9-1.1) H 2.1 (0.9-1.1) H Phosphorus Level 3.3 MG/DL (2.5-4.9) 3.4 MG/DL (2.5-4.9) Magnesium Level 1.7 MG/DL (1.8-2.4) L 3.8 MG/DL (1.8-2.4) H Folate 33.2 NG/ML (3.1-17.5) H White Blood Count 5.7 K/UL (4.8-10.8) Red Blood Count 2.92 M/UL (4.20-5.40) L Hemoglobin 8.6 G/DL (12.0-16.0) L Hematocrit 27.0 % (37.0-47.0) L Mean Corpuscular Volume 92 FL (80-99) Mean Corpuscular Hemoglobin 29.6 PG (27.0-31.0) Mean Corpuscular Hemoglobin Concent 32.1 G/DL (32.0-36.0) Red Cell Distribution Width 15.4 % (11.6-14.8) H Platelet Count 143 K/UL (150-450) L Mean Platelet Volume 5.8 FL (6.5-10.1) L Neutrophils (%) (Auto) 63.2 % (45.0-75.0) Lymphocytes (%) (Auto) 14.1 % (20.0-45.0) L Monocytes (%) (Auto) 15.5 % (1.0-10.0) H Eosinophils (%) (Auto) 5.7 % (0.0-3.0) H Basophils (%) (Auto) 1.5 % (0.0-2.0) Activated Partial Thromboplast Time 42 SEC (23-33) H PT Mixing Study Pending Mix PT Incubation Time Pending Mix PT Patient/Normal 1:1 Pending Sodium Level 139 MMOL/L (136-145) Potassium Level 3.3 MMOL/L (3.5-5.1) L Chloride Level 103 MMOL/L (98-107) Carbon Dioxide Level 27 MMOL/L (21-32) Anion Gap 9 (5-15) Blood Urea Nitrogen 62 mg/dL (7-18) H Creatinine 4.0 MG/DL (0.55-1.30) H Estimat Glomerular Filtration Rate mL/min (>60) Glucose Level 85 MG/DL (74-106) Uric Acid 10.6 MG/DL (2.6-7.2) H Calcium Level 8.5 MG/DL (8.5-10.1) Total Bilirubin 0.7 MG/DL (0.2-1.0) Aspartate Amino Transf (AST/SGOT) 14 U/L (15-37) L Alanine Aminotransferase (ALT/SGPT) < 6 U/L (12-78) L Alkaline Phosphatase 58 U/L (46-116) C-Reactive Protein, Quantitative 5.7 mg/dL (0.00-0.90) H Total Protein 6.1 G/DL (6.4-8.2) L Albumin 1.9 G/DL (3.4-5.0) L Globulin 4.2 g/dL Albumin/Globulin Ratio 0.5 (1.0-2.7) L Current Medications Medications (Trade) Dose Ordered Sig/Kalyn Route PRN Reason Start Time Stop Time Status Last Admin Dose Admin Acetaminophen (Tylenol) 650 mg Q4H PRN ORAL Mild Pain/Temp > 100.5 11/14/16 08:00 12/12/16 07:59 11/20/16 09:38 Allopurinol (Allopurinol) 300 mg DAILY ORAL 11/16/16 10:00 12/16/16 09:59 11/20/16 09:35 Cefazolin Sodium 50 ml @ 100 mls/hr Q12HR@0300,1500 IV 11/15/16 15:00 11/22/16 14:59 11/21/16 03:05 Diphenhydramine HCl (Benadryl) 25 mg Q6H PRN IVP Itching 11/19/16 20:15 12/19/16 20:14 11/20/16 09:56 Docusate Sodium (Colace) 100 mg TWICE A DAY ORAL 11/14/16 09:00 12/12/16 08:59 11/20/16 17:55 Epoetin Santos (Procrit (for non ESRD use)) 10,000 units TUE-TUE-TUE SUBQ 11/17/16 21:00 12/17/16 20:59 11/19/16 21:35 Folic Acid (Folate) 1 mg DAILY ORAL 11/14/16 09:00 12/12/16 08:59 11/20/16 09:38 Furosemide 100 mg/ Dextrose 100 ml @ 10 mls/hr Q10H IV 11/15/16 15:00 12/15/16 14:59 11/21/16 01:26 Gabapentin (Neurontin) 600 mg BID ORAL 11/14/16 09:00 12/14/16 08:59 11/20/16 17:55 Metolazone (Zaroxolyn) 10 mg DAILY ORAL 11/18/16 09:00 12/18/16 08:59 11/20/16 09:35 Midodrine (Pro-Amatine) 2.5 mg THREE TIMES A DAY ORAL 11/20/16 13:00 12/20/16 12:59 11/20/16 17:55 Morphine Sulfate (Morphine Sulfate) 6 mg Q3H PRN IVP Severe Pain (Pain Scale 7-10) 11/19/16 19:50 11/26/16 19:49 Pantoprazole (Protonix) 40 mg DAILY IVP 11/14/16 09:00 12/12/16 08:59 11/20/16 09:34 Polyethylene Glycol (Miralax) 17 gm DAILY ORAL 11/14/16 09:00 12/12/16 08:59 11/20/16 09:33 Potassium Chloride (K-Dur) 40 meq TWICE A DAY ORAL 11/20/16 11:15 11/21/16 11:14 11/20/16 17:55 Pravastatin Sodium (Pravachol) 20 mg BEDTIME ORAL 11/14/16 21:00 12/12/16 20:59 11/20/16 20:53 Sevelamer Carbonate (Renvela) 800 mg THREE TIMES A DAY ORAL 11/14/16 09:00 12/12/16 08:59 11/20/16 17:55 Sildenafil Citrate (Revatio) 20 mg THREE TIMES A DAY ORAL 11/14/16 09:00 12/12/16 08:59 11/20/16 17:55 Vancomycin HCl (Vanco rx to dose) 1 ea DAILY PRN MISC Per rx protocol 11/17/16 13:15 12/17/16 13:14 Vancomycin HCl 1 gm/Dextrose 275 ml @ 183.708 mls/hr ONCE ONCE IVPB 11/21/16 09:00 11/21/16 10:29 CARY ESTES Nov 21, 2016 09:07
[2016-11-21 09:12] LABS: ABG ALLEN TEST POSITIVE; ABG BASE EXCESS 3.3; ABG PCO2 35.1 mmHg (35.0-45.0)
[2016-11-21] MEDS ORDERED: KCl 10% 40mEq/30ml liquid NG ONE (09:45)
[2016-11-21] MEDS: Pantoprazole Inj IVP SCH (10:03)
[2016-11-21] MEDS: Docusate 100mg cap ORAL SCH ×2 (10:04→18:32)
[2016-11-21] MEDS: Revatio 20mg tab ORAL SCH ×3 (10:04→18:32)
--- NOTE | 2016-11-21 10:10 | Diagnostic Imaging Report ---
Indication: Dyspnea Comparison: 11/20/2016 A single view chest radiograph was obtained. Findings: Pulmonary vascular congestion and interstitial edema are demonstrated, unchanged. Heart is enlarged. There is a tracheostomy present. Findings appear unchanged. Impression: No change from prior exam one day earlier. Interstitial edema/CHF unchanged Tracheostomy tube
--- NOTE | 2016-11-21 10:40 | General Progress Note ---
Assessment/Plan Status: unchanged, deteriorating - renal parameters Assessment/Plan Cellulitis BLE and R arm- in the setting of chronic leg edema- r/o DVT Anasarca/ bilateral leg lymphedema CKD- and acute renal failure - Cr 3.1 unchanged since last admission- Acute respiratory failure s/p Trach Obese COPD , CHF, Diastolic MINA UTI Anemia GI Bleed, GI bleeding At Fib Pulm HTN h/o Low B12 plan: need to initiate dialysis due trach change today zaroxyllin- stop lasix drip add EPOGEN 24 H urine collection in process: CrCl 6 Monitor renal parameters- optimize cardiac and pulm status avoid nephrotoxics- pulmonary support- transfuse as needed consider HD Subjective ROS Limited/Unobtainable: No Allergies: Coded Allergies: AMOXICILLIN (Verified Allergy, Mild, RASH, 09/30/16) PENICILLINS (Unverified Allergy, Unknown, 09/30/16) Objective Last 24 Hour Vital Signs Date Time Temp Pulse Resp B/P (MAP) Pulse Ox O2 Delivery O2 Flow Rate FiO2 11/21/16 09:00 30 11/21/16 09:00 66 20 30 11/21/16 07:03 60 20 30 11/21/16 06:00 75 20 71/30 97 Mechanical Ventilator 30 11/21/16 05:10 60 20 30 11/21/16 05:00 75 20 79/33 99 Mechanical Ventilator 30 11/21/16 04:00 98.5 72 20 91/59 98 Mechanical Ventilator 30 11/21/16 04:00 75 11/21/16 04:00 30 11/21/16 03:00 72 19 98/42 98 Mechanical Ventilator 30 11/21/16 02:45 60 20 30 11/21/16 02:00 72 20 93/53 99 Mechanical Ventilator 30 11/21/16 01:00 75 19 88/40 97 Mechanical Ventilator 30 11/21/16 00:52 61 20 30 11/21/16 00:00 72 11/21/16 00:00 98.7 75 20 82/36 99 Mechanical Ventilator 30 11/21/16 00:00 30 11/20/16 23:20 64 20 30 11/20/16 23:00 75 20 85/55 98 Mechanical Ventilator 30 11/20/16 22:00 72 23 78/37 96 Mechanical Ventilator 30 11/20/16 21:07 64 20 30 11/20/16 21:00 72 20 81/48 98 Mechanical Ventilator 30 11/20/16 20:00 30 11/20/16 20:00 72 11/20/16 20:00 98.9 75 30 98/62 96 Mechanical Ventilator 30 11/20/16 19:00 81 21 109/79 96 Mechanical Ventilator 30 11/20/16 18:49 60 20 30 11/20/16 18:02 59 21 92/52 97 Mechanical Ventilator 30 11/20/16 17:00 61 20 30 11/20/16 17:00 72 20 81/31 97 Mechanical Ventilator 30 11/20/16 16:00 30 11/20/16 16:00 99.4 66 20 77/32 97 Mechanical Ventilator 30 11/20/16 16:00 78 11/20/16 15:00 62 20 30 11/20/16 15:00 71 20 83/50 97 Mechanical Ventilator 30 11/20/16 14:00 66 20 66/28 97 Mechanical Ventilator 30 11/20/16 13:00 63 20 30 11/20/16 13:00 79 20 87/42 97 Mechanical Ventilator 30 11/20/16 12:00 30 11/20/16 12:00 99.0 79 20 69/30 97 Mechanical Ventilator 30 11/20/16 12:00 79 11/20/16 11:00 61 20 30 11/20/16 11:00 71 20 85/40 97 Mechanical Ventilator 30 Intake and Output 11/21/16 11/22/16 19:00 07:00 Intake Total 20 ml Output Total 300 ml Balance -280 ml Other 20 ml Output Urine Total 300 ml Laboratory Tests 11/20/16 14:35: Prothrombin Time 41.6H, Prothromb Time International Ratio 3.9H, Phosphorus Level 3.3, Magnesium Level 1.7L, Folate 33.2H 11/21/16 04:00: Arterial Blood pH 7.496H, Arterial Blood Partial Pressure CO2 35.1, Arterial Blood Partial Pressure O2 93.5, Arterial Blood HCO3 26.5H, Arterial Blood Oxygen Saturation 97.2, Arterial Blood Base Excess 3.3, Mike Test Positive 11/21/16 05:30: Prothrombin Time 22.3H, Prothromb Time International Ratio 2.1H, Phosphorus Level 3.4, Magnesium Level 3.8H, White Blood Count 5.7, Red Blood Count 2.92L, Hemoglobin 8.6L, Hematocrit 27.0L, Mean Corpuscular Volume 92, Mean Corpuscular Hemoglobin 29.6, Mean Corpuscular Hemoglobin Concent 32.1, Red Cell Distribution Width 15.4H, Platelet Count 143L, Mean Platelet Volume 5.8L, Neutrophils (%) (Auto) 63.2, Lymphocytes (%) (Auto) 14.1L, Monocytes (%) (Auto) 15.5H, Eosinophils (%) (Auto) 5.7H, Basophils (%) (Auto) 1.5, Activated Partial Thromboplast Time 42H, PT Mixing Study [Pending], Mix PT Incubation Time [ Pending], Mix PT Patient/Normal 1:1 [Pending], Sodium Level 139, Potassium Level 3.3L, Chloride Level 103, Carbon Dioxide Level 27, Anion Gap 9, Blood Urea Nitrogen 62H, Creatinine 4.0H, Estimat Glomerular Filtration Rate , Glucose Level 85, Uric Acid 10.6H, Calcium Level 8.5, Total Bilirubin 0.7, Aspartate Amino Transf (AST/SGOT) 14L, Alanine Aminotransferase (ALT/SGPT) < 6L , Alkaline Phosphatase 58, C-Reactive Protein, Quantitative 5.7H, Total Protein 6.1L, Albumin 1.9L, Globulin 4.2, Albumin/Globulin Ratio 0.5L Height (Feet): 5 Height (Inches): 5.00 Weight (Pounds): 403 General Appearance: no apparent distress Cardiovascular: normal rate Respiratory/Chest: decreased breath sounds Abdomen: soft Objective BP low , but doubtful measurement COURTNEY LOPEZ Nov 21, 2016 10:40
--- NOTE | 2016-11-21 11:43 | Pulmonolgy Critical Care Note ---
Critical Care - Asmt/Plan Assessment/Plan: ASSESSMENT chronic hypercapnic respiratory failure VDRF/trach anasarca CHF diastolic acute on chronic renal failure coagulopathy ( due to a/coagulation and sepsis) cellulitis BLE and R arm hypotension anemia of chronic disease anemia requiring blood transfusion pulmonary HTN morbid obesity Pickwickian syndrome MINA permanent A fib chronic lymphedema with venous stasis BLE hx of breast Ca PLAN OF CARE ICU Vent/trach care pulmonary toilet ABG stable on current settings, keep as is and titrate as needed trach revision was cancelled due to elevated INR Eliquis on hold s/p vit K x2 11/20 INR down to 2.1 heme follows, mixing study ordered discussed with nursing staff to inform surgeon that INR-2.1 ( since Eliquis on hold, need to do soon revision) will do FFP later when a new date of surgery confirmed dc Lasix gtt , no change, and worsening creat ( discussed with nephro) continue Zaroxolyn CXR without much change, still with interstitial edema/CHF on Midodrine for BP management with holding parameters likely will need HD abx, ID follows blood cx negative wound care as per wound nurse recommendations venous Duplex BLE and BUE negative Arterial Duplex BLE ( was a technically difficult study), but no evidence of stenosis monitor HH, transfuse prn anemia w/up c/w anemia of chronic disease continue EPO bowel regimen case discussed and evaluated by supervising physician Critical Care - Objective Last 24 Hour Vital Signs Date Time Temp Pulse Resp B/P (MAP) Pulse Ox O2 Delivery O2 Flow Rate FiO2 11/21/16 11:26 64 20 30 11/21/16 09:00 30 11/21/16 09:00 66 20 30 11/21/16 08:00 69 11/21/16 07:03 60 20 30 11/21/16 06:00 75 20 71/30 97 Mechanical Ventilator 30 11/21/16 05:10 60 20 30 11/21/16 05:00 75 20 79/33 99 Mechanical Ventilator 30 11/21/16 04:00 98.5 72 20 91/59 98 Mechanical Ventilator 30 11/21/16 04:00 75 11/21/16 04:00 30 11/21/16 03:00 72 19 98/42 98 Mechanical Ventilator 30 11/21/16 02:45 60 20 30 11/21/16 02:00 72 20 93/53 99 Mechanical Ventilator 30 11/21/16 01:00 75 19 88/40 97 Mechanical Ventilator 30 11/21/16 00:52 61 20 30 11/21/16 00:00 72 11/21/16 00:00 98.7 75 20 82/36 99 Mechanical Ventilator 30 11/21/16 00:00 30 11/20/16 23:20 64 20 30 11/20/16 23:00 75 20 85/55 98 Mechanical Ventilator 30 11/20/16 22:00 72 23 78/37 96 Mechanical Ventilator 30 11/20/16 21:07 64 20 30 11/20/16 21:00 72 20 81/48 98 Mechanical Ventilator 30 11/20/16 20:00 30 11/20/16 20:00 72 11/20/16 20:00 98.9 75 30 98/62 96 Mechanical Ventilator 30 11/20/16 19:00 81 21 109/79 96 Mechanical Ventilator 30 11/20/16 18:49 60 20 30 11/20/16 18:02 59 21 92/52 97 Mechanical Ventilator 30 11/20/16 17:00 61 20 30 11/20/16 17:00 72 20 81/31 97 Mechanical Ventilator 30 11/20/16 16:00 30 11/20/16 16:00 99.4 66 20 77/32 97 Mechanical Ventilator 30 11/20/16 16:00 78 11/20/16 15:00 62 20 30 11/20/16 15:00 71 20 83/50 97 Mechanical Ventilator 30 11/20/16 14:00 66 20 66/28 97 Mechanical Ventilator 30 11/20/16 13:00 63 20 30 11/20/16 13:00 79 20 87/42 97 Mechanical Ventilator 30 11/20/16 12:00 30 11/20/16 12:00 99.0 79 20 69/30 97 Mechanical Ventilator 30 11/20/16 12:00 79 Objective: Status: awake, alert, responsive, bedridden, vent dependent morbidly obese with generalized anasarca female Condition: critical HEENT: atraumatic, normocephalic Lungs: decreased BS Heart: HR/BP stable, irregular A fib on tele, rate controlled Abdomen: soft, non-tender, obese, active bowel sounds Extremities: anasarca; R > L ; BLE edema +2, blanching erythema anteriorly from distal leg up to below knee, +warmth, non TTP, no drainage; Critical Care - Subjective ROS Limited/Unobtainable: Yes Interval Events: worsening creat no change on CXR INR down to 2.1 Condition: critical IV Access: peripheral FI02: 30 Vent Support Breath Rate: 20 Vent Support Mode: AC Vent Tidal Volume: 600 Sputum Amount: Moderate PEEP: 5.0 PIP: 49 I&O: Intake and Output 11/21/16 11/22/16 19:00 07:00 Intake Total 403.708 ml Output Total 340 ml Balance 63.708 ml Intake Oral 160 ml IV Total 223.708 ml Other 20 ml Output Urine Total 340 ml CXR: 11/21 Interstitial edema/CHF unchanged ET-Tube: 6.0 ET Position: 15 Rojas ([facility]),Jaquelin MAYER Nov 21, 2016 11:43
[2016-11-21] MEDS ORDERED: Albuterol/Ipratropium 3ml neb HHN PRN (11:45)
[2016-11-21] MEDS: Midodrine 10mg tab ORAL SCH ×2 (13:14→18:31)
[2016-11-21] MEDS: Morphine Sulfate 4mg/ml Inj IVP PRN (13:16)
[2016-11-21] MEDS ORDERED: Phytonadione 10 mg/mL 1ml amp SUBQ ONE (14:30)
--- NOTE | 2016-11-21 19:52 | General Progress Note ---
Assessment/Plan Assessment/Plan ASSESSMENT/RECS: # Coagulopathy 2/2 sepsis --> eliquis currently on hold --> have ordered for vitamin K x2 as well as mixing study #. Anemia secondary to chronic disease. Continue to closely monitor. Work up reviewed --> s/p transfusion. watch counts, transfuse if hgb is below 8 #. Anemia of kidney disease. Nephrology service following #. History of breast cancer, currently on letrozole. #. Chronic ventilator dependant, to receive trach. procedure on hold due to elevated inr #. Permanent atrial fibrillation. She is on apixaban. #. Cellulitis and chronic lymphedema of the bilateral lower extremities. Continue to monitor. On abx per id service #. Congestive heart failure. Subjective Constitutional: Reports: no symptoms HEENT: Reports: no symptoms Cardiovascular: Reports: no symptoms Respiratory: Reports: no symptoms Gastrointestinal/Abdominal: Reports: no symptoms Genitourinary: Reports: no symptoms Neurologic/Psychiatric: Reports: no symptoms Endocrine: Reports: no symptoms Hematologic/Lymphatic: Reports: no symptoms Allergies: Coded Allergies: AMOXICILLIN (Verified Allergy, Mild, RASH, 09/30/16) PENICILLINS (Unverified Allergy, Unknown, 09/30/16) Subjective on a vent, no major events Objective Last 24 Hour Vital Signs Date Time Temp Pulse Resp B/P (MAP) Pulse Ox O2 Delivery O2 Flow Rate FiO2 11/21/16 18:00 61 20 83/46 19 Mechanical Ventilator 30 11/21/16 17:28 65 20 30 11/21/16 17:00 60 19 83/43 98 Mechanical Ventilator 30 11/21/16 16:00 83 11/21/16 16:00 99.4 70 20 74/42 98 Mechanical Ventilator 30 11/21/16 16:00 30 11/21/16 15:25 70 20 30 11/21/16 15:00 63 20 85/43 98 Mechanical Ventilator 30 11/21/16 14:00 68 21 83/54 98 Mechanical Ventilator 30 11/21/16 13:27 66 20 30 11/21/16 13:00 70 20 66/42 99 Mechanical Ventilator 30 11/21/16 12:00 30 11/21/16 12:00 98.1 65 19 76/32 97 Mechanical Ventilator 30 11/21/16 12:00 70 11/21/16 11:26 64 20 30 11/21/16 11:00 83 19 83/47 99 Mechanical Ventilator 30 11/21/16 10:00 76 20 92/73 99 Mechanical Ventilator 30 11/21/16 09:00 30 11/21/16 09:00 78 18 85/46 97 Mechanical Ventilator 30 11/21/16 09:00 66 20 30 11/21/16 08:00 98.5 80 23 75/33 97 Mechanical Ventilator 30 11/21/16 08:00 69 11/21/16 07:03 60 20 30 11/21/16 07:00 86 39 56/44 95 Mechanical Ventilator 30 11/21/16 06:00 75 20 71/30 97 Mechanical Ventilator 30 11/21/16 05:10 60 20 30 11/21/16 05:00 75 20 79/33 99 Mechanical Ventilator 30 11/21/16 04:00 98.5 72 20 91/59 98 Mechanical Ventilator 30 11/21/16 04:00 75 11/21/16 04:00 30 11/21/16 03:00 72 19 98/42 98 Mechanical Ventilator 30 11/21/16 02:45 60 20 30 11/21/16 02:00 72 20 93/53 99 Mechanical Ventilator 30 11/21/16 01:00 75 19 88/40 97 Mechanical Ventilator 30 11/21/16 00:52 61 20 30 11/21/16 00:00 72 11/21/16 00:00 98.7 75 20 82/36 99 Mechanical Ventilator 30 11/21/16 00:00 30 11/20/16 23:20 64 20 30 11/20/16 23:00 75 20 85/55 98 Mechanical Ventilator 30 11/20/16 22:00 72 23 78/37 96 Mechanical Ventilator 30 11/20/16 21:07 64 20 30 11/20/16 21:00 72 20 81/48 98 Mechanical Ventilator 30 11/20/16 20:00 30 11/20/16 20:00 72 11/20/16 20:00 98.9 75 30 98/62 96 Mechanical Ventilator 30 Intake and Output 11/21/16 11/22/16 19:00 07:00 Intake Total 403.708 ml Output Total 655 ml Balance -251.292 ml Intake Oral 160 ml IV Total 223.708 ml Other 20 ml Output Urine Total 655 ml Laboratory Tests 11/21/16 04:00: Arterial Blood pH 7.496H, Arterial Blood Partial Pressure CO2 35.1, Arterial Blood Partial Pressure O2 93.5, Arterial Blood HCO3 26.5H, Arterial Blood Oxygen Saturation 97.2, Arterial Blood Base Excess 3.3, Mike Test Positive 11/21/16 05:30: White Blood Count 5.7, Red Blood Count 2.92L, Hemoglobin 8.6L, Hematocrit 27.0L , Mean Corpuscular Volume 92, Mean Corpuscular Hemoglobin 29.6, Mean Corpuscular Hemoglobin Concent 32.1, Red Cell Distribution Width 15.4H, Platelet Count 143L, Mean Platelet Volume 5.8L, Neutrophils (%) (Auto) 63.2, Lymphocytes (%) (Auto) 14.1L, Monocytes (%) (Auto) 15.5H, Eosinophils (%) (Auto ) 5.7H, Basophils (%) (Auto) 1.5, Prothrombin Time 22.3H, Prothromb Time International Ratio 2.1H, Activated Partial Thromboplast Time 42H, PT Mixing Study [Pending], Mix PT Incubation Time [Pending], Mix PT Patient/Normal 1:1 [ Pending], Sodium Level 139, Potassium Level 3.3L, Chloride Level 103, Carbon Dioxide Level 27, Anion Gap 9, Blood Urea Nitrogen 62H, Creatinine 4.0H, Estimat Glomerular Filtration Rate , Glucose Level 85, Uric Acid 10.6H, Calcium Level 8.5, Phosphorus Level 3.4, Magnesium Level 3.8H, Total Bilirubin 0.7, Aspartate Amino Transf (AST/SGOT) 14L, Alanine Aminotransferase (ALT/SGPT) < 6L , Alkaline Phosphatase 58, C-Reactive Protein, Quantitative 5.7H, Total Protein 6.1L, Albumin 1.9L, Globulin 4.2, Albumin/Globulin Ratio 0.5L Height (Feet): 5 Height (Inches): 5.00 Weight (Pounds): 403 General Appearance: no apparent distress Neck: normal inspection Cardiovascular: no gallop/murmur Respiratory/Chest: no accessory muscle use Neurologic: unresponsive Skin: normal pigmentation, warm/dry Serafin Haines Nov 21, 2016 19:52
--- NOTE | 2016-11-21 20:46 | General Progress Note ---
Assessment/Plan Status: progressing Assessment/Plan This is a 76-year-old, morbidly obese female, admitted with anasarca and cellulitis of the lower leg. The patient was admitted to the directr observation unit on the monitor with the following medical problems. now transfered to icu as of 11-14-16, co of pruritis 1. Anasarca. She appears to be markedly swollen. She will need diuresis. Place the patient on Lasix 20 mg intravenous for now q.12 hours. Cardiology and Pulmonary on the case. We will follow orders. Check laboratory studies daily. lasix drip was discontinued in am, patient will need HD discussed with patient and all questions answered patient agrees to proceed with permacath placement for HD 2. Chronic hypercapnic respiratory failure. Continue with vent support per Pulmonary. 3 anemia. s./p transfusion of PRBC Continue monitoring CBC daily. patient to start procrit per nephrology 4. Pulmonary hypertension. hold Eliquis 2.5 mg twice a day until trach is refitted 5. Chronic kidney disease. We will monitor BUN and creatinine. Gentle diuresis for now. Nephrology has been consulted. further workup per nephrology. avoid nephrotoxic agents HD to start soon 6. DVT prophylaxis. The patient is on Eliquis. The patient is Full Code. patient is severely volume overloaded will transfer to ICU for closer monitoring., ABG prn, chest xray and daily weights continue duresis, monitor bp , consider midodrin 5 mg tid if pressure drop, am labs discussed at length with icu nursing staff and consultants elevate right arm with pillow while reclining for revesion of trach as soon as INR is stable off Eloquis discussed with icu nurse benadryl 25 mg iv q 6 prn itching Subjective Date patient seen: Nov 21, 2016 ROS Limited/Unobtainable: Yes Allergies: Coded Allergies: AMOXICILLIN (Verified Allergy, Mild, RASH, 09/30/16) PENICILLINS (Unverified Allergy, Unknown, 09/30/16) Objective Last 24 Hour Vital Signs Date Time Temp Pulse Resp B/P (MAP) Pulse Ox O2 Delivery O2 Flow Rate FiO2 11/21/16 19:30 63 20 30 11/21/16 18:00 61 20 83/46 19 Mechanical Ventilator 30 11/21/16 17:28 65 20 30 11/21/16 17:00 60 19 83/43 98 Mechanical Ventilator 30 11/21/16 16:00 83 11/21/16 16:00 99.4 70 20 74/42 98 Mechanical Ventilator 30 11/21/16 16:00 30 11/21/16 15:25 70 20 30 11/21/16 15:00 63 20 85/43 98 Mechanical Ventilator 30 11/21/16 14:00 68 21 83/54 98 Mechanical Ventilator 30 11/21/16 13:27 66 20 30 11/21/16 13:00 70 20 66/42 99 Mechanical Ventilator 30 11/21/16 12:00 30 11/21/16 12:00 98.1 65 19 76/32 97 Mechanical Ventilator 30 11/21/16 12:00 70 11/21/16 11:26 64 20 30 11/21/16 11:00 83 19 83/47 99 Mechanical Ventilator 30 11/21/16 10:00 76 20 92/73 99 Mechanical Ventilator 30 11/21/16 09:00 30 11/21/16 09:00 78 18 85/46 97 Mechanical Ventilator 30 11/21/16 09:00 66 20 30 11/21/16 08:00 98.5 80 23 75/33 97 Mechanical Ventilator 30 11/21/16 08:00 69 11/21/16 07:03 60 20 30 11/21/16 07:00 86 39 56/44 95 Mechanical Ventilator 30 11/21/16 06:00 75 20 71/30 97 Mechanical Ventilator 30 11/21/16 05:10 60 20 30 11/21/16 05:00 75 20 79/33 99 Mechanical Ventilator 30 11/21/16 04:00 98.5 72 20 91/59 98 Mechanical Ventilator 30 11/21/16 04:00 75 11/21/16 04:00 30 11/21/16 03:00 72 19 98/42 98 Mechanical Ventilator 30 11/21/16 02:45 60 20 30 11/21/16 02:00 72 20 93/53 99 Mechanical Ventilator 30 11/21/16 01:00 75 19 88/40 97 Mechanical Ventilator 30 11/21/16 00:52 61 20 30 11/21/16 00:00 72 11/21/16 00:00 98.7 75 20 82/36 99 Mechanical Ventilator 30 11/21/16 00:00 30 11/20/16 23:20 64 20 30 11/20/16 23:00 75 20 85/55 98 Mechanical Ventilator 30 11/20/16 22:00 72 23 78/37 96 Mechanical Ventilator 30 11/20/16 21:07 64 20 30 11/20/16 21:00 72 20 81/48 98 Mechanical Ventilator 30 Intake and Output 11/21/16 11/22/16 19:00 07:00 Intake Total 403.708 ml Output Total 655 ml Balance -251.292 ml Intake Oral 160 ml IV Total 223.708 ml Other 20 ml Output Urine Total 655 ml Laboratory Tests 11/21/16 04:00: Arterial Blood pH 7.496H, Arterial Blood Partial Pressure CO2 35.1, Arterial Blood Partial Pressure O2 93.5, Arterial Blood HCO3 26.5H, Arterial Blood Oxygen Saturation 97.2, Arterial Blood Base Excess 3.3, Mike Test Positive 11/21/16 05:30: White Blood Count 5.7, Red Blood Count 2.92L, Hemoglobin 8.6L, Hematocrit 27.0L , Mean Corpuscular Volume 92, Mean Corpuscular Hemoglobin 29.6, Mean Corpuscular Hemoglobin Concent 32.1, Red Cell Distribution Width 15.4H, Platelet Count 143L, Mean Platelet Volume 5.8L, Neutrophils (%) (Auto) 63.2, Lymphocytes (%) (Auto) 14.1L, Monocytes (%) (Auto) 15.5H, Eosinophils (%) (Auto ) 5.7H, Basophils (%) (Auto) 1.5, Prothrombin Time 22.3H, Prothromb Time International Ratio 2.1H, Activated Partial Thromboplast Time 42H, PT Mixing Study [Pending], Mix PT Incubation Time [Pending], Mix PT Patient/Normal 1:1 [ Pending], Sodium Level 139, Potassium Level 3.3L, Chloride Level 103, Carbon Dioxide Level 27, Anion Gap 9, Blood Urea Nitrogen 62H, Creatinine 4.0H, Estimat Glomerular Filtration Rate , Glucose Level 85, Uric Acid 10.6H, Calcium Level 8.5, Phosphorus Level 3.4, Magnesium Level 3.8H, Total Bilirubin 0.7, Aspartate Amino Transf (AST/SGOT) 14L, Alanine Aminotransferase (ALT/SGPT) < 6L , Alkaline Phosphatase 58, C-Reactive Protein, Quantitative 5.7H, Total Protein 6.1L, Albumin 1.9L, Globulin 4.2, Albumin/Globulin Ratio 0.5L Height (Feet): 5 Height (Inches): 5.00 Weight (Pounds): 403 General Appearance: mild distress, morbidly obese EENT: PERRL/EOMI, pharynx normal Neck: non-tender, supple Cardiovascular: normal rate, regular rhythm, no gallop/murmur, no JVD Respiratory/Chest: decreased breath sounds Abdomen: distended Extremities: swelling Edema: 3+ Arm (L), 3+ Arm (R), 4+ Leg (L), 4+ Leg (R), 4+ Pedal (L), 4+ Pedal ( R), 4+ Generalized Edema: severe edema Neurologic: orthotic practitioner II-XII grossly normal, oriented x 3, responsive Skin: rash Lymphatic: normal anterior cervical (L), normal anterior cervical (R), normal posterior cervical (L), normal posterior cervical (R), normal submandibular (L) , normal submandibular (R), normal supraclavicular (L), normal supraclavicular ( R), normal axillary (L), normal axillary (R), normal inguinal (L), normal inguinal (R), normal other Manny Nolan MD Nov 21, 2016 20:46
[2016-11-22] VITALS (24 sets, daily range): BP systolic 82–115; BP diastolic 34–66
[2016-11-22] MEDS: ceFAZolin 2gm/50ml Premix 50 ML IV SCH ×2 (02:53→20:29)
[2016-11-22 06:12] LABS: EOSINOPHILS % (AUTO) 5.8 % (0.0-3.0); LYMPHOCYTES % (AUTO) 16.4 % (20.0-45.0); MEAN CORPUSCULAR HGB CONC 31.6 G/DL (32.0-36.0); MEAN CORPUSCULAR VOLUME 92 FL (80-99); MEAN PLATELET VOLUME 5.5 FL (6.5-10.1); MONOCYTES % (AUTO) 13.9 % (1.0-10.0); PLATELET COUNT 160 K/UL (150-450); RED BLOOD COUNT 3.11 M/UL (4.20-5.40); RED CELL DISTRIBUTION WIDTH 15.5 % (11.6-14.8); WHITE BLOOD COUNT 6.4 K/UL (4.8-10.8)
[2016-11-22 06:25] LABS: INR 1.8 (0.9-1.1); PROTHROMBIN TIME 19.4 SEC (9.30-11.50)
[2016-11-22 06:54] LABS: ALBUMIN/GLOBULIN RATIO 0.4 (1.0-2.7); ANION GAP 12 (5-15); ASPARTATE AMINO TRANSFERASE 14 U/L (15-37); CALCIUM 8.5 MG/DL (8.5-10.1); CARBON DIOXIDE 25 MMOL/L (21-32); CHLORIDE 103 MMOL/L (98-107); CREATININE 4.1 MG/DL (0.55-1.30); CRP QUANT 5.8 mg/dL (0.00-0.90); MAGNESIUM 3.9 MG/DL (1.8-2.4); PHOSPHORUS 3.3 MG/DL (2.5-4.9); POTASSIUM 3.6 MMOL/L (3.5-5.1); SODIUM 140 MMOL/L (136-145); TOTAL PROTEIN 6.3 G/DL (6.4-8.2); URIC ACID 10.7 MG/DL (2.6-7.2)
[2016-11-22 06:59] LABS: ALANINE AMINOTRANSFERASE < 6 U/L (12-78)
[2016-11-22] MEDS: Miralax 17gm pkt ORAL SCH (09:00)
[2016-11-22 09:14] LABS: ABG ALLEN TEST POSITIVE; ABG BASE EXCESS 3.6; ABG PCO2 33.5 mmHg (35.0-45.0)
[2016-11-22] MEDS: Docusate 100mg cap ORAL SCH ×2 (09:58→18:27)
[2016-11-22] MEDS: Revatio 20mg tab ORAL SCH ×3 (09:58→18:27)
[2016-11-22] MEDS: Midodrine 10mg tab ORAL SCH ×3 (09:59→18:28)
[2016-11-22] MEDS: Pantoprazole Inj IVP SCH (09:59)
--- NOTE | 2016-11-22 10:27 | Diagnostic Imaging Report ---
Indication: SOB Technique: One view of the chest Comparison: 11/21/2016 Findings: Heart remains enlarged. Interstitial congestion persists. Tracheostomy remains. Findings are unchanged Impression: Unchanged, over one day, findings as above.
--- NOTE | 2016-11-22 10:52 | Pulmonolgy Critical Care Note ---
Critical Care - Asmt/Plan Problems: (1) Acute and chronic respiratory failure (2) Anasarca (3) ATN (acute tubular necrosis) (4) Atrial fibrillation (5) Morbid obesity (6) Pickwickian syndrome Assessment/Plan: Inr is still 1.8 Respiratory: monitor respiratory rate, adjust FIO2, CXR Cardiac: continue to monitor HR/BP Renal: F/U I&O, keep IV fluid, check electrolytes Infectious Disease: check cultures Gastrointestinal: continue feedings/current rate Endocrine: monitor blood sugar Hematologic: monitor H/H, transfuse if hgb<8.5 Neurologic: PRN Ativan Affect: PRN ativan Prophylaxis: Heparin Notes Reviewed: cardio, renal 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: nurses, consultants Critical Care - Objective Last 24 Hour Vital Signs Date Time Temp Pulse Resp B/P (MAP) Pulse Ox O2 Delivery O2 Flow Rate FiO2 11/22/16 08:39 74 20 30 11/22/16 08:00 76 11/22/16 08:00 30 11/22/16 07:00 81 23 94/37 97 Mechanical Ventilator 30 11/22/16 06:32 76 20 30 11/22/16 06:00 66 23 86/38 98 Mechanical Ventilator 30 11/22/16 05:12 73 20 30 11/22/16 05:00 78 18 82/40 96 Mechanical Ventilator 30 11/22/16 04:00 98.7 79 22 96/55 99 Mechanical Ventilator 30 11/22/16 04:00 30 11/22/16 04:00 78 11/22/16 03:30 96 20 30 11/22/16 03:00 63 20 98/44 96 Mechanical Ventilator 30 11/22/16 02:00 59 20 98/44 98 Mechanical Ventilator 30 11/22/16 01:30 54 20 30 11/22/16 01:00 59 20 87/43 98 Mechanical Ventilator 30 11/22/16 00:00 61 11/22/16 00:00 98.9 62 20 86/34 98 Mechanical Ventilator 30 11/22/16 00:00 30 11/21/16 23:00 68 20 99/54 98 Mechanical Ventilator 30 11/21/16 22:40 70 20 30 11/21/16 22:00 71 20 89/38 98 Mechanical Ventilator 30 11/21/16 21:30 62 20 30 11/21/16 21:00 62 20 85/40 99 Mechanical Ventilator 30 11/21/16 20:00 30 11/21/16 20:00 98.7 63 20 85/40 99 Mechanical Ventilator 30 11/21/16 20:00 62 11/21/16 19:30 63 20 30 11/21/16 19:00 61 20 96/57 99 Mechanical Ventilator 30 11/21/16 18:00 61 20 83/46 19 Mechanical Ventilator 30 11/21/16 17:28 65 20 30 11/21/16 17:00 60 19 83/43 98 Mechanical Ventilator 30 11/21/16 16:00 83 11/21/16 16:00 99.4 70 20 74/42 98 Mechanical Ventilator 30 11/21/16 16:00 30 11/21/16 15:25 70 20 30 11/21/16 15:00 63 20 85/43 98 Mechanical Ventilator 30 11/21/16 14:00 68 21 83/54 98 Mechanical Ventilator 30 11/21/16 13:27 66 20 30 11/21/16 13:00 70 20 66/42 99 Mechanical Ventilator 30 11/21/16 12:00 30 11/21/16 12:00 98.1 65 19 76/32 97 Mechanical Ventilator 30 11/21/16 12:00 70 11/21/16 11:26 64 20 30 11/21/16 11:00 83 19 83/47 99 Mechanical Ventilator 30 Status: awake Condition: critical HEENT: normocephalic Neck: full ROM Lungs: chest wall tender Heart: HR/BP stable, HR/BP unstable Abdomen: soft, active bowel sounds Extremities: no C/C/E Critical Care - Subjective ROS Limited/Unobtainable: Yes ICU Day: 11 Condition: critical EKG Rhythm: Sinus Rhythm FI02: 30 Vent Support Breath Rate: 20 Vent Support Mode: AC Vent Tidal Volume: 600 Sputum Amount: Small PEEP: 5.0 PIP: 47 Fluids: DKO I&O: Intake and Output 11/22/16 11/23/16 19:00 07:00 Intake Total 20 ml Output Total 150 ml Balance -130 ml Other 20 ml Output Urine Total 150 ml CXR: pulmonary edema ET-Tube: 6.0 ET Position: 15 Labs: Laboratory Tests Test 11/22/16 05:35 11/22/16 09:00 White Blood Count 6.4 K/UL (4.8-10.8) Red Blood Count 3.11 M/UL (4.20-5.40) L Hemoglobin 9.0 G/DL (12.0-16.0) L Hematocrit 28.5 % (37.0-47.0) L Mean Corpuscular Volume 92 FL (80-99) Mean Corpuscular Hemoglobin 29.0 PG (27.0-31.0) Mean Corpuscular Hemoglobin Concent 31.6 G/DL (32.0-36.0) L Red Cell Distribution Width 15.5 % (11.6-14.8) H Platelet Count 160 K/UL (150-450) Mean Platelet Volume 5.5 FL (6.5-10.1) L Neutrophils (%) (Auto) 63.0 % (45.0-75.0) Lymphocytes (%) (Auto) 16.4 % (20.0-45.0) L Monocytes (%) (Auto) 13.9 % (1.0-10.0) H Eosinophils (%) (Auto) 5.8 % (0.0-3.0) H Basophils (%) (Auto) 1.0 % (0.0-2.0) Prothrombin Time 19.4 SEC (9.30-11.50) H Prothromb Time International Ratio 1.8 (0.9-1.1) H Activated Partial Thromboplast Time 40 SEC (23-33) H Sodium Level 140 MMOL/L (136-145) Potassium Level 3.6 MMOL/L (3.5-5.1) Chloride Level 103 MMOL/L (98-107) Carbon Dioxide Level 25 MMOL/L (21-32) Anion Gap 12 (5-15) Blood Urea Nitrogen 63 mg/dL (7-18) H Creatinine 4.1 MG/DL (0.55-1.30) H Estimat Glomerular Filtration Rate mL/min (>60) Glucose Level 81 MG/DL (74-106) Uric Acid 10.7 MG/DL (2.6-7.2) H Calcium Level 8.5 MG/DL (8.5-10.1) Phosphorus Level 3.3 MG/DL (2.5-4.9) Magnesium Level 3.9 MG/DL (1.8-2.4) H Total Bilirubin 0.8 MG/DL (0.2-1.0) Gamma Glutamyl Transpeptidase 18 U/L (5-85) Aspartate Amino Transf (AST/SGOT) 14 U/L (15-37) L Alanine Aminotransferase (ALT/SGPT) < 6 U/L (12-78) L Alkaline Phosphatase 61 U/L (46-116) C-Reactive Protein, Quantitative 5.8 mg/dL (0.00-0.90) H Pro-B-Type Natriuretic Peptide 75563 (0-125) H Total Protein 6.3 G/DL (6.4-8.2) L Albumin 1.9 G/DL (3.4-5.0) L Globulin 4.4 g/dL Albumin/Globulin Ratio 0.4 (1.0-2.7) L Hepatitis B Surface Antigen Pending Hepatitis B Surface Antibody, Quant Pending Hepatitis C Antibody Pending Arterial Blood pH 7.516 (7.350-7.450) Arterial Blood Partial Pressure CO2 33.5 mmHg (35.0-45.0) L Arterial Blood Partial Pressure O2 99.1 mmHg (75.0-100.0) Arterial Blood HCO3 26.5 mmol/L (22.0-26.0) H Arterial Blood Oxygen Saturation 97.2 % (92.0-98.0) Arterial Blood Base Excess 3.6 Mike Test Positive ARASH MIRANDA Nov 22, 2016 10:52
--- NOTE | 2016-11-22 11:15 | General Progress Note ---
Assessment/Plan Status: unchanged Status Narrative Cr rising- edematous Assessment/Plan Cellulitis BLE and R arm- in the setting of chronic leg edema- r/o DVT Anasarca/ bilateral leg lymphedema CKD- and acute renal failure - Cr 3.1 unchanged since last admission- Acute respiratory failure s/p Trach Obese COPD , CHF, Diastolic MINA UTI Anemia GI Bleed, GI bleeding At Fib Pulm HTN h/o Low B12 plan: need to initiate dialysis- due insertion of catheter. due trach change today zaroxyllin- stop lasix drip add EPOGEN 24 H urine collection in process: CrCl 6 Monitor renal parameters- optimize cardiac and pulm status avoid nephrotoxics- pulmonary support- transfuse as needed consider HD Subjective ROS Limited/Unobtainable: No Constitutional: Reports: malaise, weakness Allergies: Coded Allergies: AMOXICILLIN (Verified Allergy, Mild, RASH, 09/30/16) PENICILLINS (Unverified Allergy, Unknown, 09/30/16) Objective Last 24 Hour Vital Signs Date Time Temp Pulse Resp B/P (MAP) Pulse Ox O2 Delivery O2 Flow Rate FiO2 11/22/16 10:42 69 20 30 11/22/16 10:00 74 20 85/61 96 Mechanical Ventilator 30 11/22/16 09:00 66 23 107/60 97 Mechanical Ventilator 30 11/22/16 08:39 74 20 30 11/22/16 08:00 67 20 103/49 96 Mechanical Ventilator 30 11/22/16 08:00 76 11/22/16 08:00 30 11/22/16 07:00 81 23 94/37 97 Mechanical Ventilator 30 11/22/16 06:32 76 20 30 11/22/16 06:00 66 23 86/38 98 Mechanical Ventilator 30 11/22/16 05:12 73 20 30 11/22/16 05:00 78 18 82/40 96 Mechanical Ventilator 30 11/22/16 04:00 98.7 79 22 96/55 99 Mechanical Ventilator 30 11/22/16 04:00 30 11/22/16 04:00 78 11/22/16 03:30 96 20 30 11/22/16 03:00 63 20 98/44 96 Mechanical Ventilator 30 11/22/16 02:00 59 20 98/44 98 Mechanical Ventilator 30 11/22/16 01:30 54 20 30 11/22/16 01:00 59 20 87/43 98 Mechanical Ventilator 30 11/22/16 00:00 61 11/22/16 00:00 98.9 62 20 86/34 98 Mechanical Ventilator 30 11/22/16 00:00 30 11/21/16 23:00 68 20 99/54 98 Mechanical Ventilator 30 11/21/16 22:40 70 20 30 11/21/16 22:00 71 20 89/38 98 Mechanical Ventilator 30 11/21/16 21:30 62 20 30 11/21/16 21:00 62 20 85/40 99 Mechanical Ventilator 30 11/21/16 20:00 30 11/21/16 20:00 98.7 63 20 85/40 99 Mechanical Ventilator 30 11/21/16 20:00 62 11/21/16 19:30 63 20 30 11/21/16 19:00 61 20 96/57 99 Mechanical Ventilator 30 11/21/16 18:00 61 20 83/46 19 Mechanical Ventilator 30 11/21/16 17:28 65 20 30 11/21/16 17:00 60 19 83/43 98 Mechanical Ventilator 30 11/21/16 16:00 83 11/21/16 16:00 99.4 70 20 74/42 98 Mechanical Ventilator 30 11/21/16 16:00 30 11/21/16 15:25 70 20 30 11/21/16 15:00 63 20 85/43 98 Mechanical Ventilator 30 11/21/16 14:00 68 21 83/54 98 Mechanical Ventilator 30 11/21/16 13:27 66 20 30 11/21/16 13:00 70 20 66/42 99 Mechanical Ventilator 30 11/21/16 12:00 30 11/21/16 12:00 98.1 65 19 76/32 97 Mechanical Ventilator 30 11/21/16 12:00 70 11/21/16 11:26 64 20 30 Intake and Output 11/22/16 11/23/16 18:59 06:59 Intake Total 20 ml Output Total 200 ml Balance -180 ml Other 20 ml Output Urine Total 200 ml Laboratory Tests 11/22/16 05:35: White Blood Count 6.4, Red Blood Count 3.11L, Hemoglobin 9.0L, Hematocrit 28.5L , Mean Corpuscular Volume 92, Mean Corpuscular Hemoglobin 29.0, Mean Corpuscular Hemoglobin Concent 31.6L, Red Cell Distribution Width 15.5H, Platelet Count 160, Mean Platelet Volume 5.5L, Neutrophils (%) (Auto) 63.0, Lymphocytes (%) (Auto) 16.4L, Monocytes (%) (Auto) 13.9H, Eosinophils (%) (Auto ) 5.8H, Basophils (%) (Auto) 1.0, Prothrombin Time 19.4H, Prothromb Time International Ratio 1.8H, Activated Partial Thromboplast Time 40H, Sodium Level 140, Potassium Level 3.6, Chloride Level 103, Carbon Dioxide Level 25, Anion Gap 12, Blood Urea Nitrogen 63H, Creatinine 4.1H, Estimat Glomerular Filtration Rate , Glucose Level 81, Uric Acid 10.7H, Calcium Level 8.5, Phosphorus Level 3.3, Magnesium Level 3.9H, Total Bilirubin 0.8, Gamma Glutamyl Transpeptidase 18 , Aspartate Amino Transf (AST/SGOT) 14L, Alanine Aminotransferase (ALT/SGPT) < 6L, Alkaline Phosphatase 61, C-Reactive Protein, Quantitative 5.8H, Pro-B-Type Natriuretic Peptide 09996D, Total Protein 6.3L, Albumin 1.9L, Globulin 4.4, Albumin/Globulin Ratio 0.4L, Hepatitis B Surface Antigen [Pending], Hepatitis B Surface Antibody, Quant [Pending], Hepatitis C Antibody [Pending] 11/22/16 09:00: Arterial Blood pH 7.516H, Arterial Blood Partial Pressure CO2 33.5L, Arterial Blood Partial Pressure O2 99.1, Arterial Blood HCO3 26.5H, Arterial Blood Oxygen Saturation 97.2, Arterial Blood Base Excess 3.6, Mike Test Positive Height (Feet): 5 Height (Inches): 5.00 Weight (Pounds): 399 General Appearance: no apparent distress Cardiovascular: normal rate Respiratory/Chest: decreased breath sounds Abdomen: distended Edema: 2+ Arm (L), 2+ Arm (R), 2+ Leg (L), 2+ Leg (R), 2+ Pedal (L), 2+ Pedal ( R), 2+ Generalized Objective BP low , but doubtful measurement COURTNEY LOPEZ Nov 22, 2016 11:15
[2016-11-22] MEDS ORDERED: Phytonadione 10 mg/mL 1ml amp SUBQ ONE (12:15)
--- NOTE | 2016-11-22 13:59 | Infectious Diseases Prog Note ---
Assessment/Plan Assessment/Plan Abx: IV Vancomycin 11/11-11/12; 11/17- IV Cefepime 11/11-11/12 IV Ancef 11/12- Flagyl x1 11/11 Assesment: Cellulitis BLE and R arm- in the setting of chronic leg edema/venous stasis- Limited Venous duplex BLE (non diagnostic), no DVT R arm; mild improved; Main component is of venous stasis so erythema would not completely resolve with abx -Bcx Neg Anasarca/ bilateral leg lymphedema -CXR 11/19: Interstitial edema/CHF unchanged Afebrile, no leukocytosis REnal insufficiency VRE colonzied COPD Diastolic CHF chronic resp failure, vent/trach dependent, Gtbue, pAfib, pleural effusion, MINA , CKD, GERD, morbid obesity, [place] resident Plan: -Continue Ancef for cellulitis (abx #01/20) and Continue IV Vancomycin #07/15 ( added for additional gram positive coverage) -extremity elevation -edema management -Monitor CBC/BMP, temperatures Thank you for this consultation. Will continue to follow along with you. 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 RN. Subjective Allergies: Coded Allergies: AMOXICILLIN (Verified Allergy, Mild, RASH, 09/30/16) PENICILLINS (Unverified Allergy, Unknown, 09/30/16) Subjective afebrile no leukocytosis remains in ICU Objective Vital Signs Last 24 Hour Vital Signs Date Time Temp Pulse Resp B/P (MAP) Pulse Ox O2 Delivery O2 Flow Rate FiO2 11/22/16 13:04 71 20 30 11/22/16 13:00 79 20 103/56 97 Mechanical Ventilator 30 11/22/16 12:00 30 11/22/16 12:00 98.9 62 21 83/43 97 Mechanical Ventilator 30 11/22/16 12:00 62 11/22/16 11:00 66 21 89/47 96 Mechanical Ventilator 30 11/22/16 10:42 69 20 30 11/22/16 10:00 74 20 85/61 96 Mechanical Ventilator 30 11/22/16 09:00 66 23 107/60 97 Mechanical Ventilator 30 11/22/16 08:39 74 20 30 11/22/16 08:00 67 20 103/49 96 Mechanical Ventilator 30 11/22/16 08:00 76 11/22/16 08:00 30 11/22/16 07:00 81 23 94/37 97 Mechanical Ventilator 30 11/22/16 06:32 76 20 30 11/22/16 06:00 66 23 86/38 98 Mechanical Ventilator 30 11/22/16 05:12 73 20 30 11/22/16 05:00 78 18 82/40 96 Mechanical Ventilator 30 11/22/16 04:00 98.7 79 22 96/55 99 Mechanical Ventilator 30 11/22/16 04:00 30 11/22/16 04:00 78 11/22/16 03:30 96 20 30 11/22/16 03:00 63 20 98/44 96 Mechanical Ventilator 30 11/22/16 02:00 59 20 98/44 98 Mechanical Ventilator 30 11/22/16 01:30 54 20 30 11/22/16 01:00 59 20 87/43 98 Mechanical Ventilator 30 11/22/16 00:00 61 11/22/16 00:00 98.9 62 20 86/34 98 Mechanical Ventilator 30 11/22/16 00:00 30 11/21/16 23:00 68 20 99/54 98 Mechanical Ventilator 30 11/21/16 22:40 70 20 30 11/21/16 22:00 71 20 89/38 98 Mechanical Ventilator 30 11/21/16 21:30 62 20 30 11/21/16 21:00 62 20 85/40 99 Mechanical Ventilator 30 11/21/16 20:00 30 11/21/16 20:00 98.7 63 20 85/40 99 Mechanical Ventilator 30 11/21/16 20:00 62 11/21/16 19:30 63 20 30 11/21/16 19:00 61 20 96/57 99 Mechanical Ventilator 30 11/21/16 18:00 61 20 83/46 19 Mechanical Ventilator 30 11/21/16 17:28 65 20 30 11/21/16 17:00 60 19 83/43 98 Mechanical Ventilator 30 11/21/16 16:00 83 11/21/16 16:00 99.4 70 20 74/42 98 Mechanical Ventilator 30 11/21/16 16:00 30 11/21/16 15:25 70 20 30 11/21/16 15:00 63 20 85/43 98 Mechanical Ventilator 30 11/21/16 14:00 68 21 83/54 98 Mechanical Ventilator 30 Height (Feet): 5 Height (Inches): 5.00 Weight (Pounds): 399 Objective General Appearance: WD/WN HEENT: trach in palce, Respiratory/Chest: chest wall non-tender, lungs clear Cardiovascular/Chest: normal peripheral pulses, normal rate Abdomen: normal bowel sounds, non tender Ext: anasarca; R > L LE swelling, both legs with blanching erythema anteriorly from distal leg up to below knee, +warmth, non TTP, no drainage; R arm swelling, erythematous,. background changes of chronic lymphedema on b/l legs; minimally improved Laboratory Tests Test 11/22/16 05:35 11/22/16 09:00 White Blood Count 6.4 K/UL (4.8-10.8) Red Blood Count 3.11 M/UL (4.20-5.40) L Hemoglobin 9.0 G/DL (12.0-16.0) L Hematocrit 28.5 % (37.0-47.0) L Mean Corpuscular Volume 92 FL (80-99) Mean Corpuscular Hemoglobin 29.0 PG (27.0-31.0) Mean Corpuscular Hemoglobin Concent 31.6 G/DL (32.0-36.0) L Red Cell Distribution Width 15.5 % (11.6-14.8) H Platelet Count 160 K/UL (150-450) Mean Platelet Volume 5.5 FL (6.5-10.1) L Neutrophils (%) (Auto) 63.0 % (45.0-75.0) Lymphocytes (%) (Auto) 16.4 % (20.0-45.0) L Monocytes (%) (Auto) 13.9 % (1.0-10.0) H Eosinophils (%) (Auto) 5.8 % (0.0-3.0) H Basophils (%) (Auto) 1.0 % (0.0-2.0) Prothrombin Time 19.4 SEC (9.30-11.50) H Prothromb Time International Ratio 1.8 (0.9-1.1) H Activated Partial Thromboplast Time 40 SEC (23-33) H Sodium Level 140 MMOL/L (136-145) Potassium Level 3.6 MMOL/L (3.5-5.1) Chloride Level 103 MMOL/L (98-107) Carbon Dioxide Level 25 MMOL/L (21-32) Anion Gap 12 (5-15) Blood Urea Nitrogen 63 mg/dL (7-18) H Creatinine 4.1 MG/DL (0.55-1.30) H Estimat Glomerular Filtration Rate mL/min (>60) Glucose Level 81 MG/DL (74-106) Uric Acid 10.7 MG/DL (2.6-7.2) H Calcium Level 8.5 MG/DL (8.5-10.1) Phosphorus Level 3.3 MG/DL (2.5-4.9) Magnesium Level 3.9 MG/DL (1.8-2.4) H Total Bilirubin 0.8 MG/DL (0.2-1.0) Gamma Glutamyl Transpeptidase 18 U/L (5-85) Aspartate Amino Transf (AST/SGOT) 14 U/L (15-37) L Alanine Aminotransferase (ALT/SGPT) < 6 U/L (12-78) L Alkaline Phosphatase 61 U/L (46-116) C-Reactive Protein, Quantitative 5.8 mg/dL (0.00-0.90) H Pro-B-Type Natriuretic Peptide 03371 (0-125) H Total Protein 6.3 G/DL (6.4-8.2) L Albumin 1.9 G/DL (3.4-5.0) L Globulin 4.4 g/dL Albumin/Globulin Ratio 0.4 (1.0-2.7) L Hepatitis B Surface Antigen Pending Hepatitis B Surface Antibody, Quant Pending Hepatitis C Antibody Pending Arterial Blood pH 7.516 (7.350-7.450) Arterial Blood Partial Pressure CO2 33.5 mmHg (35.0-45.0) L Arterial Blood Partial Pressure O2 99.1 mmHg (75.0-100.0) Arterial Blood HCO3 26.5 mmol/L (22.0-26.0) H Arterial Blood Oxygen Saturation 97.2 % (92.0-98.0) Arterial Blood Base Excess 3.6 Mike Test Positive Current Medications Medications (Trade) Dose Ordered Sig/Kalyn Route PRN Reason Start Time Stop Time Status Last Admin Dose Admin Acetaminophen (Tylenol) 650 mg Q4H PRN ORAL Mild Pain/Temp > 100.5 11/14/16 08:00 12/12/16 07:59 11/20/16 09:38 Albuterol/ Ipratropium (DuoNeb 0.5-3(2.5)mg/3ml) 3 ml Q4H PRN HHN sob 11/21/16 11:45 11/26/16 11:44 Allopurinol (Allopurinol) 300 mg DAILY ORAL 11/16/16 10:00 12/16/16 09:59 11/22/16 09:58 Cefazolin Sodium 50 ml @ 100 mls/hr Q24H IV 11/22/16 21:00 11/29/16 20:59 Diphenhydramine HCl (Benadryl) 25 mg Q6H PRN IVP Itching 11/19/16 20:15 12/19/16 20:14 11/20/16 09:56 Docusate Sodium (Colace) 100 mg TWICE A DAY ORAL 11/14/16 09:00 12/12/16 08:59 11/22/16 09:58 Epoetin Santos (Procrit (for non ESRD use)) 10,000 units TUE- SUBQ 11/17/16 21:00 12/17/16 20:59 11/19/16 21:35 Folic Acid (Folate) 1 mg DAILY ORAL 11/14/16 09:00 12/12/16 08:59 11/22/16 09:58 Gabapentin (Neurontin) 600 mg BID ORAL 11/14/16 09:00 12/14/16 08:59 11/22/16 09:58 Metolazone (Zaroxolyn) 10 mg BID ORAL 11/21/16 18:00 12/18/16 08:59 11/22/16 09:59 Midodrine (Pro-Amatine) 10 mg THREE TIMES A DAY ORAL 11/21/16 13:00 12/21/16 12:59 11/22/16 13:31 Morphine Sulfate (Morphine Sulfate) 6 mg Q3H PRN IVP Severe Pain (Pain Scale 7-10) 11/19/16 19:50 11/26/16 19:49 11/21/16 13:16 Pantoprazole (Protonix) 40 mg DAILY IVP 11/14/16 09:00 12/12/16 08:59 11/22/16 09:59 Polyethylene Glycol (Miralax) 17 gm DAILY ORAL 11/14/16 09:00 12/12/16 08:59 11/20/16 09:33 Pravastatin Sodium (Pravachol) 20 mg BEDTIME ORAL 11/14/16 21:00 12/12/16 20:59 11/21/16 20:43 Sevelamer Carbonate (Renvela) 800 mg THREE TIMES A DAY ORAL 11/14/16 09:00 12/12/16 08:59 11/20/16 17:55 Sildenafil Citrate (Revatio) 20 mg THREE TIMES A DAY ORAL 11/14/16 09:00 12/12/16 08:59 11/22/16 13:31 Vancomycin HCl (Vanco rx to dose) 1 ea DAILY PRN MISC Per rx protocol 11/17/16 13:15 12/17/16 13:14 Danielle Guo M.D. Nov 22, 2016 13:59
--- NOTE | 2016-11-22 20:56 | Pre-Procedure Note/Attestation ---
Pre-Procedure Note/Attestation Complete Prior to Procedure Planned Procedure: not applicable Procedure Narrative: revision trach Indications for Procedure Pre-Operative Diagnosis: trach came out needs to be replaced Attestation I attest that I discussed the nature of the procedure; its benefits; risks and complications; and alternatives (and the risks and benefits of such alternatives ), prior to the procedure, with the patient (or the patient's legal sales representative printing supplies). I attest that, if there was a reasonable possibility of needing a blood transfusion, the patient (or the patient's legal sales representative printing supplies) was given the [facility] standardized written summary, pursuant to the Dayne [place]ana Blood Safety Act ([place] Health and Safety Code # 1645, as amended). I attest that I re-evaluated the patient just prior to the surgery and that there has been no change in the patient's H&P, except as documented below: INR needs to bellow 1.4 redraw in AM. ANGELO CARLIN Nov 22, 2016 20:56
--- NOTE | 2016-11-22 21:02 | General Progress Note ---
Assessment/Plan Status: not improved Assessment/Plan This is a 76-year-old, morbidly obese female, admitted with anasarca and cellulitis of the lower leg. The patient was admitted to the directr observation unit on the monitor with the following medical problems. now transfered to icu as of 11-14-16, co of pruritis 1. Anasarca. She appears to be markedly swollen. She will need diuresis. Place the patient on Lasix 20 mg intravenous for now q.12 hours. Cardiology and Pulmonary on the case. We will follow orders. Check laboratory studies daily. lasix drip was discontinued in am, patient will need HD discussed with patient and all questions answered patient agrees to proceed with permacath placement for HD, FFP given to correct coagulopathy prior to permcath placement tomorrow 2. Chronic hypercapnic respiratory failure. Continue with vent support per Pulmonary. 3 anemia. s./p transfusion of PRBC Continue monitoring CBC daily. patient to start procrit per nephrology 4. Pulmonary hypertension. hold Eliquis 2.5 mg twice a day until trach is refitted 5. Chronic kidney disease. We will monitor BUN and creatinine. Gentle diuresis for now. Nephrology has been consulted. further workup per nephrology. avoid nephrotoxic agents HD to start soon 6. DVT prophylaxis. The patient is on Eliquis. The patient is Full Code. patient is severely volume overloaded will transfer to ICU for closer monitoring., ABG prn, chest xray and daily weights continue duresis, monitor bp , consider midodrin 5 mg tid if pressure drop, am labs discussed at length with icu nursing staff and consultants elevate right arm with pillow while reclining for revesion of trach as soon as INR is stable off Eloquis discussed with icu nurse benadryl 25 mg iv q 6 prn itching Subjective Date patient seen: Nov 22, 2016 ROS Limited/Unobtainable: Yes Allergies: Coded Allergies: AMOXICILLIN (Verified Allergy, Mild, RASH, 09/30/16) PENICILLINS (Unverified Allergy, Unknown, 09/30/16) Objective Last 24 Hour Vital Signs Date Time Temp Pulse Resp B/P (MAP) Pulse Ox O2 Delivery O2 Flow Rate FiO2 11/22/16 20:00 65 11/22/16 20:00 30 11/22/16 20:00 99.0 64 23 89/53 95 Mechanical Ventilator 30 11/22/16 19:00 72 20 104/60 96 Mechanical Ventilator 30 11/22/16 18:00 73 20 104/60 96 Mechanical Ventilator 30 11/22/16 17:00 74 20 96/44 95 Mechanical Ventilator 30 11/22/16 16:43 73 20 30 11/22/16 16:00 98.4 92 21 115/57 20 Mechanical Ventilator 30 11/22/16 16:00 30 11/22/16 16:00 95 11/22/16 15:03 74 20 30 11/22/16 15:00 87 21 92/66 95 Mechanical Ventilator 30 11/22/16 14:00 73 21 84/46 95 Mechanical Ventilator 30 11/22/16 13:04 71 20 30 11/22/16 13:00 79 20 103/56 97 Mechanical Ventilator 30 11/22/16 12:00 30 11/22/16 12:00 98.9 62 21 83/43 97 Mechanical Ventilator 30 11/22/16 12:00 62 11/22/16 11:00 66 21 89/47 96 Mechanical Ventilator 30 11/22/16 10:42 69 20 30 11/22/16 10:00 74 20 85/61 96 Mechanical Ventilator 30 11/22/16 09:00 66 23 107/60 97 Mechanical Ventilator 30 11/22/16 08:39 74 20 30 11/22/16 08:00 98.4 67 20 103/49 96 Mechanical Ventilator 30 11/22/16 08:00 76 11/22/16 08:00 30 11/22/16 07:00 81 23 94/37 97 Mechanical Ventilator 30 11/22/16 06:32 76 20 30 11/22/16 06:00 66 23 86/38 98 Mechanical Ventilator 30 11/22/16 05:12 73 20 30 11/22/16 05:00 78 18 82/40 96 Mechanical Ventilator 30 11/22/16 04:00 98.7 79 22 96/55 99 Mechanical Ventilator 30 11/22/16 04:00 30 11/22/16 04:00 78 11/22/16 03:30 96 20 30 11/22/16 03:00 63 20 98/44 96 Mechanical Ventilator 30 11/22/16 02:00 59 20 98/44 98 Mechanical Ventilator 30 11/22/16 01:30 54 20 30 11/22/16 01:00 59 20 87/43 98 Mechanical Ventilator 30 11/22/16 00:00 61 11/22/16 00:00 98.9 62 20 86/34 98 Mechanical Ventilator 30 11/22/16 00:00 30 11/21/16 23:00 68 20 99/54 98 Mechanical Ventilator 30 11/21/16 22:40 70 20 30 11/21/16 22:00 71 20 89/38 98 Mechanical Ventilator 30 11/21/16 21:30 62 20 30 Intake and Output 11/22/16 11/23/16 19:00 07:00 Intake Total 20 ml 289 ml Output Total 435 ml 30 ml Balance -415 ml 259 ml Blood Product 289 ml Other 20 ml Output Urine Total 435 ml 30 ml Laboratory Tests 11/22/16 05:35: White Blood Count 6.4, Red Blood Count 3.11L, Hemoglobin 9.0L, Hematocrit 28.5L , Mean Corpuscular Volume 92, Mean Corpuscular Hemoglobin 29.0, Mean Corpuscular Hemoglobin Concent 31.6L, Red Cell Distribution Width 15.5H, Platelet Count 160, Mean Platelet Volume 5.5L, Neutrophils (%) (Auto) 63.0, Lymphocytes (%) (Auto) 16.4L, Monocytes (%) (Auto) 13.9H, Eosinophils (%) (Auto ) 5.8H, Basophils (%) (Auto) 1.0, Prothrombin Time 19.4H, Prothromb Time International Ratio 1.8H, Activated Partial Thromboplast Time 40H, Sodium Level 140, Potassium Level 3.6, Chloride Level 103, Carbon Dioxide Level 25, Anion Gap 12, Blood Urea Nitrogen 63H, Creatinine 4.1H, Estimat Glomerular Filtration Rate , Glucose Level 81, Uric Acid 10.7H, Calcium Level 8.5, Phosphorus Level 3.3, Magnesium Level 3.9H, Total Bilirubin 0.8, Gamma Glutamyl Transpeptidase 18 , Aspartate Amino Transf (AST/SGOT) 14L, Alanine Aminotransferase (ALT/SGPT) < 6L, Alkaline Phosphatase 61, C-Reactive Protein, Quantitative 5.8H, Pro-B-Type Natriuretic Peptide 10866M, Total Protein 6.3L, Albumin 1.9L, Globulin 4.4, Albumin/Globulin Ratio 0.4L, Hepatitis B Surface Antigen [Pending], Hepatitis B Surface Antibody, Quant [Pending], Hepatitis C Antibody [Pending] 11/22/16 09:00: Arterial Blood pH 7.516H, Arterial Blood Partial Pressure CO2 33.5L, Arterial Blood Partial Pressure O2 99.1, Arterial Blood HCO3 26.5H, Arterial Blood Oxygen Saturation 97.2, Arterial Blood Base Excess 3.6, Mike Test Positive Height (Feet): 5 Height (Inches): 5.00 Weight (Pounds): 399 General Appearance: no apparent distress, alert, obese, morbidly obese EENT: PERRL/EOMI, pharynx normal Neck: non-tender, supple Cardiovascular: normal rate, regular rhythm, no gallop/murmur, no JVD Respiratory/Chest: decreased breath sounds Abdomen: distended Extremities: swelling Edema: 4+ Arm (L), 4+ Arm (R), 4+ Leg (L), 4+ Leg (R), 4+ Pedal (L), 4+ Pedal ( R), 4+ Generalized Edema: severe edema 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
--- NOTE | 2016-11-22 21:25 | General Progress Note ---
Assessment/Plan Assessment/Plan ASSESSMENT/RECS: # Coagulopathy 2/2 sepsis --> eliquis currently on hold --> have ordered for vitamin K x2 as well as mixing study #. Anemia secondary to chronic disease. Continue to closely monitor. Work up reviewed --> s/p transfusion. watch counts, transfuse if hgb is below 8 #. Anemia of kidney disease. Nephrology service following #. History of breast cancer, currently on letrozole. #. Chronic ventilator dependant, to receive trach. procedure on hold due to elevated inr #. Permanent atrial fibrillation. She is on apixaban. #. Cellulitis and chronic lymphedema of the bilateral lower extremities. Continue to monitor. On abx per id service #. Congestive heart failure. Subjective Constitutional: Reports: no symptoms HEENT: Reports: no symptoms Cardiovascular: Reports: no symptoms Respiratory: Reports: no symptoms Gastrointestinal/Abdominal: Reports: no symptoms Genitourinary: Reports: no symptoms Neurologic/Psychiatric: Reports: no symptoms Endocrine: Reports: no symptoms Hematologic/Lymphatic: Reports: no symptoms Allergies: Coded Allergies: AMOXICILLIN (Verified Allergy, Mild, RASH, 09/30/16) PENICILLINS (Unverified Allergy, Unknown, 09/30/16) Subjective s/p hemodialysis today Objective Last 24 Hour Vital Signs Date Time Temp Pulse Resp B/P (MAP) Pulse Ox O2 Delivery O2 Flow Rate FiO2 11/22/16 21:10 72 20 30 11/22/16 20:00 65 11/22/16 20:00 30 11/22/16 20:00 99.0 64 23 89/53 95 Mechanical Ventilator 30 11/22/16 19:30 64 20 30 11/22/16 19:00 72 20 104/60 96 Mechanical Ventilator 30 11/22/16 18:00 73 20 104/60 96 Mechanical Ventilator 30 11/22/16 17:00 74 20 96/44 95 Mechanical Ventilator 30 11/22/16 16:43 73 20 30 11/22/16 16:00 98.4 92 21 115/57 20 Mechanical Ventilator 30 11/22/16 16:00 30 11/22/16 16:00 95 11/22/16 15:03 74 20 30 11/22/16 15:00 87 21 92/66 95 Mechanical Ventilator 30 11/22/16 14:00 73 21 84/46 95 Mechanical Ventilator 30 11/22/16 13:04 71 20 30 11/22/16 13:00 79 20 103/56 97 Mechanical Ventilator 30 11/22/16 12:00 30 11/22/16 12:00 98.9 62 21 83/43 97 Mechanical Ventilator 30 11/22/16 12:00 62 11/22/16 11:00 66 21 89/47 96 Mechanical Ventilator 30 11/22/16 10:42 69 20 30 11/22/16 10:00 74 20 85/61 96 Mechanical Ventilator 30 11/22/16 09:00 66 23 107/60 97 Mechanical Ventilator 30 11/22/16 08:39 74 20 30 11/22/16 08:00 98.4 67 20 103/49 96 Mechanical Ventilator 30 11/22/16 08:00 76 11/22/16 08:00 30 11/22/16 07:00 81 23 94/37 97 Mechanical Ventilator 30 11/22/16 06:32 76 20 30 11/22/16 06:00 66 23 86/38 98 Mechanical Ventilator 30 11/22/16 05:12 73 20 30 11/22/16 05:00 78 18 82/40 96 Mechanical Ventilator 30 11/22/16 04:00 98.7 79 22 96/55 99 Mechanical Ventilator 30 11/22/16 04:00 30 11/22/16 04:00 78 11/22/16 03:30 96 20 30 11/22/16 03:00 63 20 98/44 96 Mechanical Ventilator 30 11/22/16 02:00 59 20 98/44 98 Mechanical Ventilator 30 11/22/16 01:30 54 20 30 11/22/16 01:00 59 20 87/43 98 Mechanical Ventilator 30 11/22/16 00:00 61 11/22/16 00:00 98.9 62 20 86/34 98 Mechanical Ventilator 30 11/22/16 00:00 30 11/21/16 23:00 68 20 99/54 98 Mechanical Ventilator 30 11/21/16 22:40 70 20 30 11/21/16 22:00 71 20 89/38 98 Mechanical Ventilator 30 11/21/16 21:30 62 20 30 Intake and Output 11/22/16 11/23/16 19:00 07:00 Intake Total 20 ml 289 ml Output Total 435 ml 30 ml Balance -415 ml 259 ml Blood Product 289 ml Other 20 ml Output Urine Total 435 ml 30 ml Laboratory Tests 11/22/16 05:35: White Blood Count 6.4, Red Blood Count 3.11L, Hemoglobin 9.0L, Hematocrit 28.5L , Mean Corpuscular Volume 92, Mean Corpuscular Hemoglobin 29.0, Mean Corpuscular Hemoglobin Concent 31.6L, Red Cell Distribution Width 15.5H, Platelet Count 160, Mean Platelet Volume 5.5L, Neutrophils (%) (Auto) 63.0, Lymphocytes (%) (Auto) 16.4L, Monocytes (%) (Auto) 13.9H, Eosinophils (%) (Auto ) 5.8H, Basophils (%) (Auto) 1.0, Prothrombin Time 19.4H, Prothromb Time International Ratio 1.8H, Activated Partial Thromboplast Time 40H, Sodium Level 140, Potassium Level 3.6, Chloride Level 103, Carbon Dioxide Level 25, Anion Gap 12, Blood Urea Nitrogen 63H, Creatinine 4.1H, Estimat Glomerular Filtration Rate , Glucose Level 81, Uric Acid 10.7H, Calcium Level 8.5, Phosphorus Level 3.3, Magnesium Level 3.9H, Total Bilirubin 0.8, Gamma Glutamyl Transpeptidase 18 , Aspartate Amino Transf (AST/SGOT) 14L, Alanine Aminotransferase (ALT/SGPT) < 6L, Alkaline Phosphatase 61, C-Reactive Protein, Quantitative 5.8H, Pro-B-Type Natriuretic Peptide 25123G, Total Protein 6.3L, Albumin 1.9L, Globulin 4.4, Albumin/Globulin Ratio 0.4L, Hepatitis B Surface Antigen [Pending], Hepatitis B Surface Antibody, Quant [Pending], Hepatitis C Antibody [Pending] 11/22/16 09:00: Arterial Blood pH 7.516H, Arterial Blood Partial Pressure CO2 33.5L, Arterial Blood Partial Pressure O2 99.1, Arterial Blood HCO3 26.5H, Arterial Blood Oxygen Saturation 97.2, Arterial Blood Base Excess 3.6, Mike Test Positive Height (Feet): 5 Height (Inches): 5.00 Weight (Pounds): 399 General Appearance: no apparent distress EENT: PERRL/EOMI Neck: non-tender Cardiovascular: normal peripheral pulses Respiratory/Chest: chest wall non-tender 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
[2016-11-22] MEDS ORDERED: Dexamethasone 4mg/ml vial IVP ONE (21:30)
[2016-11-22] MEDS ORDERED: Tubing IV Secondary IV ONE (21:39)
[2016-11-22] MEDS ORDERED: D5W 275ml ONE (21:39)
[2016-11-22] MEDS: Epogen (for non ESRD use) SUBQ SCH (21:49)
[2016-11-23] VITALS (22 sets, daily range): BP systolic 71–120; BP diastolic 39–75
[2016-11-23 06:12] LABS: BASOPHILS % (AUTO) 0.4 % (0.0-2.0); EOSINOPHILS % (AUTO) 0.3 % (0.0-3.0); LYMPHOCYTES % (AUTO) 13.3 % (20.0-45.0); MEAN CORPUSCULAR HGB CONC 32.5 G/DL (32.0-36.0); MEAN CORPUSCULAR VOLUME 92 FL (80-99); MONOCYTES % (AUTO) 3.5 % (1.0-10.0); NEUTROPHILS % (AUTO) 82.7 % (45.0-75.0); PLATELET COUNT 164 K/UL (150-450); RED BLOOD COUNT 3.11 M/UL (4.20-5.40); RED CELL DISTRIBUTION WIDTH 15.4 % (11.6-14.8); WHITE BLOOD COUNT 4.6 K/UL (4.8-10.8)
[2016-11-23 06:22] LABS: INR 1.4 (0.9-1.1); PROTHROMBIN TIME 15.1 SEC (9.30-11.50)
[2016-11-23 06:30] LABS: ALANINE AMINOTRANSFERASE < 6 U/L (12-78); ALBUMIN/GLOBULIN RATIO 0.5 (1.0-2.7); ANION GAP 14 mmol/L (5-15); ASPARTATE AMINO TRANSFERASE 14 U/L (15-37); CALCIUM 8.8 MG/DL (8.5-10.1); CARBON DIOXIDE 23 MMOL/L (21-32); CHLORIDE 102 MMOL/L (98-107); CREATININE 4.2 MG/DL (0.55-1.30); MAGNESIUM 1.8 MG/DL (1.8-2.4); PHOSPHORUS 3.8 MG/DL (2.5-4.9); POTASSIUM 3.8 MMOL/L (3.5-5.1); SODIUM 139 MMOL/L (136-145); TOTAL PROTEIN 7.1 G/DL (6.4-8.2)
[2016-11-23] MEDS ORDERED: Lidocaine 1% 10mg/ml/Epi 0.005mg/ml 30ml vial INJ ONE (07:02)
[2016-11-23] MEDS: Midodrine 10mg tab ORAL SCH ×3 (09:00→17:09)
[2016-11-23] MEDS: Pantoprazole Inj IVP SCH (09:00)
[2016-11-23] MEDS: Revatio 20mg tab ORAL SCH ×3 (09:00→17:09)
[2016-11-23] MEDS: Docusate 100mg cap ORAL SCH ×2 (09:00→17:09)
[2016-11-23] MEDS: Miralax 17gm pkt ORAL SCH (09:00)
[2016-11-23] MEDS ORDERED: Sterile Water Irrig 1000ml IRRIG ONE (09:01)
[2016-11-23] MEDS ORDERED: Succinylcholine 20mg/ml 10ml vial ONE (09:01)
[2016-11-23] MEDS ORDERED: NS Irrig 1000ml ONE (09:01)
[2016-11-23] MEDS ORDERED: Propofol 200mg/20ml IV ONE (09:01)
[2016-11-23] MEDS ORDERED: fentaNYL 100 mcg/2 mL IV ONE (09:01)
[2016-11-23] MEDS ORDERED: LR 1000ml ONE (09:01)
[2016-11-23] MEDS ORDERED: Midazolam 2mg/2ml Inj ONE (09:01)
[2016-11-23] MEDS ORDERED: Clindamycin 2 ML ONE (09:11)
--- NOTE | 2016-11-23 09:42 | Pulmonolgy Critical Care Note ---
Critical Care - Asmt/Plan Problems: (1) Acute and chronic respiratory failure (2) Anasarca (3) ATN (acute tubular necrosis) (4) Atrial fibrillation (5) Morbid obesity (6) Pickwickian syndrome Assessment/Plan: Inr is still 1.8 Respiratory: monitor respiratory rate, adjust FIO2, CXR Cardiac: continue to monitor HR/BP Renal: F/U I&O, keep IV fluid, check electrolytes Infectious Disease: check cultures, continue antibiotics Gastrointestinal: continue feedings/current rate Endocrine: monitor blood sugar Hematologic: monitor H/H Neurologic: PRN Morphine Affect: PRN ativan Prophylaxis: Protonix, Heparin Notes Reviewed: cable 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, cardio 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: nurses, consultants, 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 manager - Objective Last 24 Hour Vital Signs Date Time Temp Pulse Resp B/P (MAP) Pulse Ox O2 Delivery O2 Flow Rate FiO2 11/23/16 08:00 98.3 65 20 101/63 93 Mechanical Ventilator 30 11/23/16 08:00 30 11/23/16 07:00 60 20 102/51 93 Mechanical Ventilator 30 11/23/16 06:34 68 20 30 11/23/16 06:00 61 20 102/51 93 Mechanical Ventilator 30 11/23/16 05:01 63 20 30 11/23/16 05:00 60 20 103/54 94 Mechanical Ventilator 30 11/23/16 04:00 98.7 69 20 103/53 92 Mechanical Ventilator 30 11/23/16 04:00 63 11/23/16 04:00 30 11/23/16 03:30 75 20 30 11/23/16 03:00 99.0 59 20 112/70 92 Mechanical Ventilator 30 11/23/16 02:00 61 20 116/66 92 Mechanical Ventilator 30 11/23/16 01:30 55 20 30 11/23/16 01:00 63 23 118/66 92 Mechanical Ventilator 30 11/23/16 00:00 98.7 89 18 120/54 94 Mechanical Ventilator 30 11/23/16 00:00 30 11/23/16 00:00 85 11/22/16 23:30 70 20 30 11/22/16 23:00 56 21 91/50 91 Mechanical Ventilator 30 11/22/16 22:00 59 21 94/50 93 Mechanical Ventilator 30 11/22/16 21:21 98.6 10/16/17 21:10 72 20 30 11/22/16 21:00 63 21 104/46 92 Mechanical Ventilator 30 11/22/16 20:00 65 11/22/16 20:00 30 11/22/16 20:00 99.0 64 23 89/53 95 Mechanical Ventilator 30 11/22/16 19:30 64 20 30 11/22/16 19:00 72 20 104/60 96 Mechanical Ventilator 30 11/22/16 18:00 73 20 104/60 96 Mechanical Ventilator 30 11/22/16 17:00 74 20 96/44 95 Mechanical Ventilator 30 11/22/16 16:43 73 20 30 11/22/16 16:00 98.4 92 21 115/57 20 Mechanical Ventilator 30 11/22/16 16:00 30 11/22/16 16:00 95 11/22/16 15:03 74 20 30 11/22/16 15:00 87 21 92/66 95 Mechanical Ventilator 30 11/22/16 14:00 73 21 84/46 95 Mechanical Ventilator 30 11/22/16 13:04 71 20 30 11/22/16 13:00 79 20 103/56 97 Mechanical Ventilator 30 11/22/16 12:00 30 11/22/16 12:00 98.9 62 21 83/43 97 Mechanical Ventilator 30 11/22/16 12:00 62 11/22/16 11:00 66 21 89/47 96 Mechanical Ventilator 30 11/22/16 10:42 69 20 30 11/22/16 10:00 74 20 85/61 96 Mechanical Ventilator 30 Status: awake Condition: critical HEENT: atraumatic Neck: full ROM Lungs: clear Heart: HR/BP stable, HR/BP unstable Abdomen: soft, non-tender Extremities: no C/C/E, edema Decubiti: location Critical Care - Subjective ROS Limited/Unobtainable: No ICU Day: 12 Interval Events: for revision of the tracheostomy today Condition: critical EKG Rhythm: Sinus Rhythm FI02: 30 Vent Support Breath Rate: 20 Vent Support Mode: AC Vent Tidal Volume: 600 Sputum Amount: Small PEEP: 5.0 PIP: 48 I&O: Intake and Output 11/23/16 11/24/16 19:00 07:00 Output Total 20 ml Balance -20 ml Output Urine Total 20 ml CXR: no change ET-Tube: 6.0 ET Position: 15 Labs: Laboratory Tests Test 11/23/16 05:25 White Blood Count 4.6 K/UL (4.8-10.8) L Red Blood Count 3.11 M/UL (4.20-5.40) L Hemoglobin 9.3 G/DL (12.0-16.0) L Hematocrit 28.7 % (37.0-47.0) L Mean Corpuscular Volume 92 FL (80-99) Mean Corpuscular Hemoglobin 30.0 PG (27.0-31.0) Mean Corpuscular Hemoglobin Concent 32.5 G/DL (32.0-36.0) Red Cell Distribution Width 15.4 % (11.6-14.8) H Platelet Count 164 K/UL (150-450) Mean Platelet Volume 6.0 FL (6.5-10.1) L Neutrophils (%) (Auto) 82.7 % (45.0-75.0) H Lymphocytes (%) (Auto) 13.3 % (20.0-45.0) L Monocytes (%) (Auto) 3.5 % (1.0-10.0) Eosinophils (%) (Auto) 0.3 % (0.0-3.0) Basophils (%) (Auto) 0.4 % (0.0-2.0) Prothrombin Time 15.1 SEC (9.30-11.50) H Prothromb Time International Ratio 1.4 (0.9-1.1) H Activated Partial Thromboplast Time 34 SEC (23-33) H Sodium Level 139 MMOL/L (136-145) Potassium Level 3.8 MMOL/L (3.5-5.1) Chloride Level 102 MMOL/L (98-107) Carbon Dioxide Level 23 MMOL/L (21-32) Anion Gap 14 mmol/L (5-15) Blood Urea Nitrogen 61 mg/dL (7-18) H Creatinine 4.2 MG/DL (0.55-1.30) H Estimat Glomerular Filtration Rate mL/min (>60) Glucose Level 100 MG/DL (74-106) Calcium Level 8.8 MG/DL (8.5-10.1) Phosphorus Level 3.8 MG/DL (2.5-4.9) Magnesium Level 1.8 MG/DL (1.8-2.4) Total Bilirubin 0.8 MG/DL (0.2-1.0) Aspartate Amino Transf (AST/SGOT) 14 U/L (15-37) L Alanine Aminotransferase (ALT/SGPT) < 6 U/L (12-78) L Alkaline Phosphatase 71 U/L (46-116) Total Protein 7.1 G/DL (6.4-8.2) Albumin 2.3 G/DL (3.4-5.0) L Globulin 4.8 g/dL Albumin/Globulin Ratio 0.5 (1.0-2.7) L ARASH MIRANDA Nov 23, 2016 09:42
--- NOTE | 2016-11-23 10:22 | Anethesia Preoperative Eval ---
Anesthesia Pre-op PMH/ROS General Date of Evaluation: Nov 23, 2016 Time of Evaluation: 09:01 Anesthesiologist: Brayden ASA Score: ASA 3 Mallampati Score Class I : Soft palate, uvula, fauces, pillars visible Class II: Soft palate, uvula, fauces visible Class III: Soft palate, base of uvula visible Class IV: Only hard plate visible Mallampati Classification: Class II Surgeon: Sherry Diagnosis: Failed trach Surgical Procedure: Revision trach Family History: no anesthesia problems Allergies: Coded Allergies: AMOXICILLIN (Verified Allergy, Mild, RASH, 09/30/16) PENICILLINS (Unverified Allergy, Unknown, 09/30/16) Medications: see eMAR Past Medical History Cardiovascular: Reports: arrhythmia - AFIB, Denies: HTN, CAD, NC, valve dz, other Pulmonary: Reports: MINA Gastrointestinal/Genitourinary: Reports: CRI Endocrine: Reports: DM Hematology/Immune: Reports: anemia Musculoskeletal/Integumentary: Reports: OA Other: obesity PMH Narrative: Morbid obesity, respiratory failure hypercapnic MINA, Afib, DM, OA, anemia, Cellulitis PSxH Narrative: Left breast mastectomy, trach Anesthesia Pre-op Phys. Exam Physician Exam Last Vital Signs Date Time Temp Pulse Resp B/P (MAP) Pulse Ox O2 Delivery O2 Flow Rate FiO2 11/23/16 08:00 98.3 65 20 101/63 93 Mechanical Ventilator 30 Constitutional: other - Assisted ventilation to the OR, morbidly obese Cardiovascular: other - IRIR Respiratory: CTA Airway Exam Mallampati Score: Class II MO: full ROM: full Teeth: intact Anesthesia Pre-op A/P Labs Hematology Test 11/23/16 05:25 White Blood Count 4.6 K/UL (4.8-10.8) L Red Blood Count 3.11 M/UL (4.20-5.40) L Hemoglobin 9.3 G/DL (12.0-16.0) L Hematocrit 28.7 % (37.0-47.0) L Mean Corpuscular Volume 92 FL (80-99) Mean Corpuscular Hemoglobin 30.0 PG (27.0-31.0) Mean Corpuscular Hemoglobin Concent 32.5 G/DL (32.0-36.0) Red Cell Distribution Width 15.4 % (11.6-14.8) H Platelet Count 164 K/UL (150-450) Mean Platelet Volume 6.0 FL (6.5-10.1) L Neutrophils (%) (Auto) 82.7 % (45.0-75.0) H Lymphocytes (%) (Auto) 13.3 % (20.0-45.0) L Monocytes (%) (Auto) 3.5 % (1.0-10.0) Eosinophils (%) (Auto) 0.3 % (0.0-3.0) Basophils (%) (Auto) 0.4 % (0.0-2.0) Coagulation Test 11/23/16 05:25 Prothrombin Time 15.1 SEC (9.30-11.50) H Prothromb Time International Ratio 1.4 (0.9-1.1) H Activated Partial Thromboplast Time 34 SEC (23-33) H Chemistry Test 11/23/16 05:25 Sodium Level 139 MMOL/L (136-145) Potassium Level 3.8 MMOL/L (3.5-5.1) Chloride Level 102 MMOL/L (98-107) Carbon Dioxide Level 23 MMOL/L (21-32) Anion Gap 14 mmol/L (5-15) Blood Urea Nitrogen 61 mg/dL (7-18) H Creatinine 4.2 MG/DL (0.55-1.30) H Estimat Glomerular Filtration Rate mL/min (>60) Glucose Level 100 MG/DL (74-106) Calcium Level 8.8 MG/DL (8.5-10.1) Phosphorus Level 3.8 MG/DL (2.5-4.9) Magnesium Level 1.8 MG/DL (1.8-2.4) Total Bilirubin 0.8 MG/DL (0.2-1.0) Aspartate Amino Transf (AST/SGOT) 14 U/L (15-37) L Alanine Aminotransferase (ALT/SGPT) < 6 U/L (12-78) L Alkaline Phosphatase 71 U/L (46-116) Total Protein 7.1 G/DL (6.4-8.2) Albumin 2.3 G/DL (3.4-5.0) L Globulin 4.8 g/dL Albumin/Globulin Ratio 0.5 (1.0-2.7) L Risk Assessment & Plan Assessment: Class 3 patient with multiple medical problems including hypercapnic MINA, vent dependent, respiratory failure here for revision trach Plan: Ester PIEDRA scope Status Change Before Surgery: No Pre-Antibiotics Drug: Clinda Given Within 1 Hr of Incision: Yes Time Given: 09:15 MIRIAM VARGAS M.D. Nov 23, 2016 10:22
--- NOTE | 2016-11-23 10:33 | Immediate Post-Op Evaluation ---
Immediate Post-Op Evalulation Immediate Post-Op Evalulation Procedure: Revision trach Date of Evaluation: Nov 23, 2016 Time of Evaluation: 10:38 IV Fluids: 300 Estimated Blood Loss: 20 Blood Pressure Systolic: 84 Blood Pressure Diastolic: 52 Pulse Rate: 77 Respiratory Rate: 18 O2 Sat by Pulse Oximetry: 93 Pain Score (1-10): 0 Nausea: No Vomiting: No Complications No complication Patient Status: reacts, ventilated, none Hydration Status: adequate Drug: Clinda Given Within 1 Hr of Incision: Yes Time Given: 09:15 MIRIAM VARGAS M.D. Nov 23, 2016 10:33
[2016-11-23 11:11] LABS: ABG ALLEN TEST POSITIVE; ABG BASE EXCESS -0.3; ABG PCO2 36.3 mmHg (35.0-45.0)
--- NOTE | 2016-11-23 11:14 | Infectious Diseases Prog Note ---
Assessment/Plan Assessment/Plan Assessment: Cellulitis BLE and R arm- in the setting of chronic leg edema/venous stasis- Limited Venous duplex BLE (non diagnostic), no DVT R arm; mild improved; Main component is of venous stasis so erythema would not completely resolve with abx -Bcx Neg Anasarca/ bilateral leg lymphedema -CXR 11/19: Interstitial edema/CHF unchanged Afebrile, no leukocytosis REnal insufficiency VRE colonzied COPD Diastolic CHF chronic resp failure, vent/trach dependent (SP trach revision 11/23), Gtbue, pAfib, pleural effusion, MINA, CKD, GERD, morbid obesity, [place] resident Plan: -Continue Ancef for cellulitis (abx #13/) and Continue IV Vancomycin #7/ -extremity elevation -edema management -Monitor CBC/BMP, temperatures - vent support, trach care, aspiration precautions Subjective Allergies: Coded Allergies: AMOXICILLIN (Verified Allergy, Mild, RASH, 09/30/16) PENICILLINS (Unverified Allergy, Unknown, 09/30/16) Subjective remains afebrile without leukocytosis on vent SP trach revision Objective Vital Signs Last 24 Hour Vital Signs Date Time Temp Pulse Resp B/P (MAP) Pulse Ox O2 Delivery O2 Flow Rate FiO2 11/23/16 10:33 77 18 93 11/23/16 08:00 98.3 65 20 101/63 93 Mechanical Ventilator 30 11/23/16 08:00 62 11/23/16 08:00 30 11/23/16 07:00 60 20 102/51 93 Mechanical Ventilator 30 11/23/16 06:34 68 20 30 11/23/16 06:00 61 20 102/51 93 Mechanical Ventilator 30 11/23/16 05:01 63 20 30 11/23/16 05:00 60 20 103/54 94 Mechanical Ventilator 30 11/23/16 04:00 98.7 69 20 103/53 92 Mechanical Ventilator 30 11/23/16 04:00 63 11/23/16 04:00 30 11/23/16 03:30 75 20 30 11/23/16 03:00 99.0 59 20 112/70 92 Mechanical Ventilator 30 11/23/16 02:00 61 20 116/66 92 Mechanical Ventilator 30 11/23/16 01:30 55 20 30 11/23/16 01:00 63 23 118/66 92 Mechanical Ventilator 30 11/23/16 00:00 98.7 89 18 120/54 94 Mechanical Ventilator 30 11/23/16 00:00 30 11/23/16 00:00 85 11/22/16 23:30 70 20 30 11/22/16 23:00 56 21 91/50 91 Mechanical Ventilator 30 11/22/16 22:00 59 21 94/50 93 Mechanical Ventilator 30 11/22/16 21:21 98.6 11/22/16 21:10 72 20 30 11/22/16 21:00 63 21 104/46 92 Mechanical Ventilator 30 11/22/16 20:00 65 11/22/16 20:00 30 11/22/16 20:00 99.0 64 23 89/53 95 Mechanical Ventilator 30 11/22/16 19:30 64 20 30 11/22/16 19:00 72 20 104/60 96 Mechanical Ventilator 30 11/22/16 18:00 73 20 104/60 96 Mechanical Ventilator 30 11/22/16 17:00 74 20 96/44 95 Mechanical Ventilator 30 11/22/16 16:43 73 20 30 11/22/16 16:00 98.4 92 21 115/57 20 Mechanical Ventilator 30 11/22/16 16:00 30 11/22/16 16:00 95 11/22/16 15:03 74 20 30 11/22/16 15:00 87 21 92/66 95 Mechanical Ventilator 30 11/22/16 14:00 73 21 84/46 95 Mechanical Ventilator 30 11/22/16 13:04 71 20 30 11/22/16 13:00 79 20 103/56 97 Mechanical Ventilator 30 11/22/16 12:00 30 11/22/16 12:00 98.9 62 21 83/43 97 Mechanical Ventilator 30 11/22/16 12:00 62 Height (Feet): 5 Height (Inches): 5.00 Weight (Pounds): 390 General Appearance: no acute distress HEENT: status post trach Respiratory/Chest: decreased breath sounds Cardiovascular: normal rate, regular rhythm Abdomen: normal bowel sounds, soft, non tender, non distended Laboratory Tests Test 11/23/16 05:25 11/23/16 10:55 White Blood Count 4.6 K/UL (4.8-10.8) L Red Blood Count 3.11 M/UL (4.20-5.40) L Hemoglobin 9.3 G/DL (12.0-16.0) L Hematocrit 28.7 % (37.0-47.0) L Mean Corpuscular Volume 92 FL (80-99) Mean Corpuscular Hemoglobin 30.0 PG (27.0-31.0) Mean Corpuscular Hemoglobin Concent 32.5 G/DL (32.0-36.0) Red Cell Distribution Width 15.4 % (11.6-14.8) H Platelet Count 164 K/UL (150-450) Mean Platelet Volume 6.0 FL (6.5-10.1) L Neutrophils (%) (Auto) 82.7 % (45.0-75.0) H Lymphocytes (%) (Auto) 13.3 % (20.0-45.0) L Monocytes (%) (Auto) 3.5 % (1.0-10.0) Eosinophils (%) (Auto) 0.3 % (0.0-3.0) Basophils (%) (Auto) 0.4 % (0.0-2.0) Prothrombin Time 15.1 SEC (9.30-11.50) H Prothromb Time International Ratio 1.4 (0.9-1.1) H Activated Partial Thromboplast Time 34 SEC (23-33) H Sodium Level 139 MMOL/L (136-145) Potassium Level 3.8 MMOL/L (3.5-5.1) Chloride Level 102 MMOL/L (98-107) Carbon Dioxide Level 23 MMOL/L (21-32) Anion Gap 14 mmol/L (5-15) Blood Urea Nitrogen 61 mg/dL (7-18) H Creatinine 4.2 MG/DL (0.55-1.30) H Estimat Glomerular Filtration Rate mL/min (>60) Glucose Level 100 MG/DL (74-106) Calcium Level 8.8 MG/DL (8.5-10.1) Phosphorus Level 3.8 MG/DL (2.5-4.9) Magnesium Level 1.8 MG/DL (1.8-2.4) Total Bilirubin 0.8 MG/DL (0.2-1.0) Aspartate Amino Transf (AST/SGOT) 14 U/L (15-37) L Alanine Aminotransferase (ALT/SGPT) < 6 U/L (12-78) L Alkaline Phosphatase 71 U/L (46-116) Total Protein 7.1 G/DL (6.4-8.2) Albumin 2.3 G/DL (3.4-5.0) L Globulin 4.8 g/dL Albumin/Globulin Ratio 0.5 (1.0-2.7) L Arterial Blood pH Pending Arterial Blood Partial Pressure CO2 Pending Arterial Blood Partial Pressure O2 Pending Arterial Blood HCO3 Pending Arterial Blood Oxygen Saturation Pending Arterial Blood Base Excess Pending Mike Test Pending Current Medications Medications (Trade) Dose Ordered Sig/Kalyn Route PRN Reason Start Time Stop Time Status Last Admin Dose Admin Acetaminophen (Tylenol) 650 mg Q4H PRN ORAL Mild Pain/Temp > 100.5 11/14/16 08:00 12/12/16 07:59 11/22/16 20:22 Albuterol/ Ipratropium (DuoNeb 0.5-3(2.5)mg/3ml) 3 ml Q4H PRN HHN sob 11/21/16 11:45 11/26/16 11:44 Allopurinol (Allopurinol) 300 mg DAILY ORAL 11/16/16 10:00 12/16/16 09:59 11/22/16 09:58 Cefazolin Sodium 50 ml @ 100 mls/hr Q24H IV 11/22/16 21:00 11/29/16 20:59 11/22/16 20:29 Diphenhydramine HCl (Benadryl) 25 mg Q6H PRN IVP Itching 11/19/16 20:15 12/19/16 20:14 11/20/16 09:56 Docusate Sodium (Colace) 100 mg TWICE A DAY ORAL 11/14/16 09:00 12/12/16 08:59 11/22/16 18:27 Epoetin Santos (Procrit (for non ESRD use)) 10,000 units TUE-TUE-TUE SUBQ 11/17/16 21:00 12/17/16 20:59 11/22/16 21:49 Folic Acid (Folate) 1 mg DAILY ORAL 11/14/16 09:00 12/12/16 08:59 11/22/16 09:58 Gabapentin (Neurontin) 600 mg BID ORAL 11/14/16 09:00 12/14/16 08:59 11/22/16 18:28 Metolazone (Zaroxolyn) 10 mg BID ORAL 11/21/16 18:00 12/18/16 08:59 11/22/16 18:27 Midodrine (Pro-Amatine) 10 mg THREE TIMES A DAY ORAL 11/21/16 13:00 12/21/16 12:59 11/22/16 18:28 Morphine Sulfate (Morphine Sulfate) 6 mg Q3H PRN IVP Severe Pain (Pain Scale 7-10) 11/19/16 19:50 11/26/16 19:49 11/21/16 13:16 Pantoprazole (Protonix) 40 mg DAILY IVP 11/14/16 09:00 12/12/16 08:59 11/22/16 09:59 Polyethylene Glycol (Miralax) 17 gm DAILY ORAL 11/14/16 09:00 12/12/16 08:59 11/20/16 09:33 Pravastatin Sodium (Pravachol) 20 mg BEDTIME ORAL 11/14/16 21:00 12/12/16 20:59 11/22/16 20:30 Sevelamer Carbonate (Renvela) 800 mg THREE TIMES A DAY ORAL 11/14/16 09:00 12/12/16 08:59 11/20/16 17:55 Sildenafil Citrate (Revatio) 20 mg THREE TIMES A DAY ORAL 11/14/16 09:00 12/12/16 08:59 11/22/16 18:27 Vancomycin HCl (Vanco rx to dose) 1 ea DAILY PRN MISC Per rx protocol 11/17/16 13:15 12/17/16 13:14 YARELIS ROBLES Nov 23, 2016 11:14
[2016-11-23 12:38] LABS: 1HR INCUBATION PT 1:1NP 12.5 sec (9.6-11.5); PROTHROMBIN TIME MIXING STUDY 22.5 sec (9.6-11.5); PT 1:1NP 12.4 sec (9.6-11.5)
--- NOTE | 2016-11-23 13:32 | Diagnostic Imaging Report ---
Indication: Dyspnea Comparison: 11/22/16 A single view chest radiograph was obtained. Findings: Heart is enlarged. Pulmonary vascular prominence and interstitial edema are present without definite change. Tracheostomy noted. Impression: No change from the prior day.
[2016-11-23] MEDS ORDERED: Tubing IV Secondary IV ONE (14:24)
[2016-11-23] MEDS ORDERED: Tubing IV Blood Pump IV ONE (14:24)
--- NOTE | 2016-11-23 17:00 | Operative Note - Dictated ---
DATE OF OPERATION: 11/23/2016 SURGEON: Fortunato Powell M.D. STEEL SAMPLER: None. ANESTHESIOLOGIST: Dr. Owen. INDICATION FOR SURGERY: Pickwickian obese patient, had a trach placed recently elsewhere, it came out. They placed an endotracheal tube in. She is here today for replacement of tracheostomy tube. She did come in with an infection, had an elevated INR, which delayed her surgery until today. PREOPERATIVE DIAGNOSIS: Pickwickian obese patient, had a trach placed recently elsewhere, it came out. They placed an endotracheal tube in. She is here today for replacement of tracheostomy tube. She did come in with an infection, had an elevated INR, which delayed her surgery until today. POSTOPERATIVE DIAGNOSIS: Pickwickian obese patient, had a trach placed recently elsewhere, it came out. They placed an endotracheal tube in. She is here today for replacement of tracheostomy tube. She did come in with an infection, had an elevated INR, which delayed her surgery until today. FINDINGS: Small hole, had to revise the whole tracheostomy in order to get new trach tube in. PROCEDURE: Revision tracheostomy. TECHNIQUE: The patient prepped and draped in the usual manner. A time-out was performed. We initially started by placing a new oral endotracheal tube through the vocal cord sitting on top of the endotracheal tube that was through the trach site. We did this to have control on all times. I then proceeded to remove the tracheostomy tube that was placed 10-15 days ago. I then placed a red rubber catheter as a tract. I then attempted to place the new trach tube, but was unable to, it was too contracted. It was when I made the decision that I had to revise the tracheostomy. Oxygen was controlled, brought down to room air. The patient was stable. I then utilized cautery at a setting of 15 and then 18 to open up down to the trach site, which I did without difficulty. Loopback [place]'s were used to spread as I went down. I then was able to place the new tracheostomy tube without difficulty. A new tracheostomy to have a strap placed behind the neck which was soft and a one and half to two fingerbreadths loose. Additionally, the trach flange was tied in with four separate 3-0 silks. These were placed at 2, 5, 7 and 10 o'clock. I also packed the wound with quarter-inch iodoform gauze and then placed a piece of Telfa between the flange of the trach and the skin to protect the skin. Sponge and needle count was correct. ESTIMATED BLOOD LOSS: 25 mL. COMPLICATIONS: None. DRAINS: None. Fortunato Powell M.D. DR: EMILY JOB#: [id number] CC:
[2016-11-23] MEDS: Morphine Sulfate 4mg/ml Inj IVP PRN ×2 (18:37→21:39)
--- NOTE | 2016-11-23 19:20 | General Progress Note ---
Assessment/Plan Assessment/Plan ASSESSMENT/RECS: # Coagulopathy 2/2 sepsis --> eliquis currently on hold --> correcting pt inr for procedure #. Anemia secondary to chronic disease. Continue to closely monitor. Work up reviewed --> s/p transfusion. watch counts, transfuse if hgb is below 8 #. Anemia of kidney disease. Nephrology service following #. History of breast cancer, currently on letrozole. #. Chronic ventilator dependant, to receive trach. procedure on hold due to elevated inr #. Permanent atrial fibrillation. She is on apixaban. #. Cellulitis and chronic lymphedema of the bilateral lower extremities. Continue to monitor. On abx per id service #. Congestive heart failure. Subjective Constitutional: Reports: weakness HEENT: Reports: no symptoms Cardiovascular: Reports: no symptoms Respiratory: Reports: no symptoms Gastrointestinal/Abdominal: Reports: no symptoms Genitourinary: Reports: no symptoms Neurologic/Psychiatric: Reports: no symptoms Endocrine: Reports: no symptoms Hematologic/Lymphatic: Reports: no symptoms Allergies: Coded Allergies: AMOXICILLIN (Verified Allergy, Mild, RASH, 09/30/16) PENICILLINS (Unverified Allergy, Unknown, 09/30/16) Subjective s/p trach revision Objective Last 24 Hour Vital Signs Date Time Temp Pulse Resp B/P (MAP) Pulse Ox O2 Delivery O2 Flow Rate FiO2 11/23/16 19:11 75 20 30 11/23/16 19:07 97.7 11/23/16 19:00 78 22 87/46 99 Mechanical Ventilator 30 11/23/16 18:00 71 40 85/47 99 Mechanical Ventilator 30 11/23/16 17:00 84 18 97/75 96 Mechanical Ventilator 30 11/23/16 16:57 69 20 30 11/23/16 16:00 97.7 61 20 81/39 97 Mechanical Ventilator 30 11/23/16 16:00 67 11/23/16 16:00 30 11/23/16 15:00 65 18 71/44 94 Mechanical Ventilator 30 11/23/16 14:57 65 20 30 11/23/16 14:00 95 18 86/57 95 Mechanical Ventilator 30 11/23/16 13:10 66 20 30 11/23/16 13:00 67 23 90/47 97 Mechanical Ventilator 30 11/23/16 12:00 97.7 64 20 95/51 96 Mechanical Ventilator 30 11/23/16 12:00 77 11/23/16 12:00 30 11/23/16 11:00 79 20 106/70 94 Mechanical Ventilator 30 11/23/16 10:33 77 18 93 11/23/16 10:20 67 20 30 11/23/16 08:00 98.3 65 20 101/63 93 Mechanical Ventilator 30 11/23/16 08:00 62 11/23/16 08:00 30 11/23/16 07:00 60 20 102/51 93 Mechanical Ventilator 30 11/23/16 06:34 68 20 30 11/23/16 06:00 61 20 102/51 93 Mechanical Ventilator 30 11/23/16 05:01 63 20 30 11/23/16 05:00 60 20 103/54 94 Mechanical Ventilator 30 11/23/16 04:00 98.7 69 20 103/53 92 Mechanical Ventilator 30 11/23/16 04:00 63 11/23/16 04:00 30 11/23/16 03:30 75 20 30 11/23/16 03:00 99.0 59 20 112/70 92 Mechanical Ventilator 30 11/23/16 02:00 61 20 116/66 92 Mechanical Ventilator 30 11/23/16 01:30 55 20 30 11/23/16 01:00 63 23 118/66 92 Mechanical Ventilator 30 11/23/16 00:00 98.7 89 18 120/54 94 Mechanical Ventilator 30 11/23/16 00:00 30 11/23/16 00:00 85 11/22/16 23:30 70 20 30 11/22/16 23:00 56 21 91/50 91 Mechanical Ventilator 30 11/22/16 22:00 59 21 94/50 93 Mechanical Ventilator 30 11/22/16 21:21 98.6 11/22/16 21:10 72 20 30 11/22/16 21:00 63 21 104/46 92 Mechanical Ventilator 30 11/22/16 20:00 65 11/22/16 20:00 30 11/22/16 20:00 99.0 64 23 89/53 95 Mechanical Ventilator 30 11/22/16 19:30 64 20 30 Intake and Output 11/23/16 11/24/16 19:00 07:00 Output Total 120 ml Balance -120 ml Output Urine Total 120 ml Laboratory Tests 11/23/16 05:25: White Blood Count 4.6L, Red Blood Count 3.11L, Hemoglobin 9.3L, Hematocrit 28.7L , Mean Corpuscular Volume 92, Mean Corpuscular Hemoglobin 30.0, Mean Corpuscular Hemoglobin Concent 32.5, Red Cell Distribution Width 15.4H, Platelet Count 164, Mean Platelet Volume 6.0L, Neutrophils (%) (Auto) 82.7H, Lymphocytes (%) (Auto) 13.3L, Monocytes (%) (Auto) 3.5, Eosinophils (%) (Auto) 0.3, Basophils (%) (Auto) 0.4, Prothrombin Time 15.1H, Prothromb Time International Ratio 1.4H, Activated Partial Thromboplast Time 34H, Sodium Level 139, Potassium Level 3.8, Chloride Level 102, Carbon Dioxide Level 23, Anion Gap 14, Blood Urea Nitrogen 61H, Creatinine 4.2H, Estimat Glomerular Filtration Rate , Glucose Level 100, Calcium Level 8.8, Phosphorus Level 3.8, Magnesium Level 1.8, Total Bilirubin 0.8, Aspartate Amino Transf (AST/SGOT) 14L, Alanine Aminotransferase (ALT/SGPT) < 6L, Alkaline Phosphatase 71, Total Protein 7.1, Albumin 2.3L, Globulin 4.8, Albumin/Globulin Ratio 0.5L 11/23/16 10:55: Arterial Blood pH 7.433, Arterial Blood Partial Pressure CO2 36.3, Arterial Blood Partial Pressure O2 77.0, Arterial Blood HCO3 23.7, Arterial Blood Oxygen Saturation 95.2, Arterial Blood Base Excess -0.3, Mike Test Positive Height (Feet): 5 Height (Inches): 5.00 Weight (Pounds): 390 General Appearance: no apparent distress EENT: normal ENT inspection Neck: normal alignment Cardiovascular: normal peripheral pulses Respiratory/Chest: no accessory muscle use Abdomen: no organomegaly Extremities: normal range of motion Serafin Haines Nov 23, 2016 19:20
--- NOTE | 2016-11-23 19:31 | 48 Hour Post Anesthesia Eval ---
Post Anesthesia Evaluation Procedure: Revision trach Date of Evaluation: Nov 23, 2016 Time of Evaluation: 19:28 Blood Pressure Systolic: 87 0: 46 Pulse Rate: 78 Respiratory Rate: 22 - Vent Temperature (Fahrenheit): 97.7 O2 Sat by Pulse Oximetry: 99 Airway: patent Nausea: No Vomiting: No Pain Intensity: 1 Hydration Status: adequate Cardiopulmonary Status: Stable Mental Status/LOC: patient returned to baseline Follow-up Care/Observations: 0 Post-Anesthesia Complications: 0 Follow-up care needed: N/A Pete Tran MD Nov 23, 2016 19:31
--- NOTE | 2016-11-23 20:14 | General Progress Note ---
Assessment/Plan Assessment/Plan This is a 76-year-old, morbidly obese female, admitted with anasarca and cellulitis of the lower leg. The patient was admitted to the directr observation unit on the monitor with the following medical problems. now transfered to icu as of 11-14-16, co of pruritis 1. Anasarca. She appears to be markedly swollen. She will need diuresis. Place the patient on Lasix 20 mg intravenous for now q.12 hours. Cardiology and Pulmonary on the case. We will follow orders. Check laboratory studies daily. lasix drip was discontinued in am, patient will need HD discussed with patient and all questions answered patient agrees to proceed with permacath placement for HD, FFP given to correct coagulopathy prior to permcath placement tomorrow 2. Chronic hypercapnic respiratory failure. Continue with vent support per Pulmonary. 3 anemia. s./p transfusion of PRBC Continue monitoring CBC daily. patient to start procrit per nephrology 4. Pulmonary hypertension. hold Eliquis 2.5 mg twice a day until trach is refitted 5. Chronic kidney disease. We will monitor BUN and creatinine. Gentle diuresis for now. Nephrology has been consulted. further workup per nephrology. avoid nephrotoxic agents HD to start soon 6. DVT prophylaxis. The patient is on Eliquis. The patient is Full Code. patient is severely volume overloaded will transfer to ICU for closer monitoring., ABG prn, chest xray and daily weights continue duresis, monitor bp , consider midodrin 5 mg tid if pressure drop, am labs discussed at length with icu nursing staff and consultants elevate right arm with pillow while reclining had revesion of trach on 11-23-16 discussed with icu nurse benadryl 25 mg iv q 6 prn itching NPO for permacath in am Subjective Date patient seen: Nov 23, 2016 ROS Limited/Unobtainable: Yes Allergies: Coded Allergies: AMOXICILLIN (Verified Allergy, Mild, RASH, 09/30/16) PENICILLINS (Unverified Allergy, Unknown, 09/30/16) Objective Last 24 Hour Vital Signs Date Time Temp Pulse Resp B/P (MAP) Pulse Ox O2 Delivery O2 Flow Rate FiO2 11/23/16 19:31 78 22 99 11/23/16 19:11 75 20 30 11/23/16 19:07 97.7 11/23/16 19:00 78 22 87/46 99 Mechanical Ventilator 30 11/23/16 18:00 71 40 85/47 99 Mechanical Ventilator 30 11/23/16 17:00 84 18 97/75 96 Mechanical Ventilator 30 11/23/16 16:57 69 20 30 11/23/16 16:00 97.7 61 20 81/39 97 Mechanical Ventilator 30 11/23/16 16:00 67 11/23/16 16:00 30 11/23/16 15:00 65 18 71/44 94 Mechanical Ventilator 30 11/23/16 14:57 65 20 30 11/23/16 14:00 95 18 86/57 95 Mechanical Ventilator 30 11/23/16 13:10 66 20 30 11/23/16 13:00 67 23 90/47 97 Mechanical Ventilator 30 11/23/16 12:00 97.7 64 20 95/51 96 Mechanical Ventilator 30 11/23/16 12:00 77 11/23/16 12:00 30 11/23/16 11:00 79 20 106/70 94 Mechanical Ventilator 30 11/23/16 10:33 77 18 93 11/23/16 10:20 67 20 30 11/23/16 08:00 98.3 65 20 101/63 93 Mechanical Ventilator 30 11/23/16 08:00 62 11/23/16 08:00 30 11/23/16 07:00 60 20 102/51 93 Mechanical Ventilator 30 11/23/16 06:34 68 20 30 11/23/16 06:00 61 20 102/51 93 Mechanical Ventilator 30 11/23/16 05:01 63 20 30 11/23/16 05:00 60 20 103/54 94 Mechanical Ventilator 30 11/23/16 04:00 98.7 69 20 103/53 92 Mechanical Ventilator 30 11/23/16 04:00 63 11/23/16 04:00 30 11/23/16 03:30 75 20 30 11/23/16 03:00 99.0 59 20 112/70 92 Mechanical Ventilator 30 11/23/16 02:00 61 20 116/66 92 Mechanical Ventilator 30 11/23/16 01:30 55 20 30 11/23/16 01:00 63 23 118/66 92 Mechanical Ventilator 30 11/23/16 00:00 98.7 89 18 120/54 94 Mechanical Ventilator 30 11/23/16 00:00 30 11/23/16 00:00 85 11/22/16 23:30 70 20 30 11/22/16 23:00 56 21 91/50 91 Mechanical Ventilator 30 11/22/16 22:00 59 21 94/50 93 Mechanical Ventilator 30 11/22/16 21:21 98.6 11/22/16 21:10 72 20 30 11/22/16 21:00 63 21 104/46 92 Mechanical Ventilator 30 Intake and Output 11/23/16 11/24/16 19:00 07:00 Output Total 120 ml Balance -120 ml Output Urine Total 120 ml Laboratory Tests 11/23/16 05:25: White Blood Count 4.6L, Red Blood Count 3.11L, Hemoglobin 9.3L, Hematocrit 28.7L , Mean Corpuscular Volume 92, Mean Corpuscular Hemoglobin 30.0, Mean Corpuscular Hemoglobin Concent 32.5, Red Cell Distribution Width 15.4H, Platelet Count 164, Mean Platelet Volume 6.0L, Neutrophils (%) (Auto) 82.7H, Lymphocytes (%) (Auto) 13.3L, Monocytes (%) (Auto) 3.5, Eosinophils (%) (Auto) 0.3, Basophils (%) (Auto) 0.4, Prothrombin Time 15.1H, Prothromb Time International Ratio 1.4H, Activated Partial Thromboplast Time 34H, Sodium Level 139, Potassium Level 3.8, Chloride Level 102, Carbon Dioxide Level 23, Anion Gap 14, Blood Urea Nitrogen 61H, Creatinine 4.2H, Estimat Glomerular Filtration Rate , Glucose Level 100, Calcium Level 8.8, Phosphorus Level 3.8, Magnesium Level 1.8, Total Bilirubin 0.8, Aspartate Amino Transf (AST/SGOT) 14L, Alanine Aminotransferase (ALT/SGPT) < 6L, Alkaline Phosphatase 71, Total Protein 7.1, Albumin 2.3L, Globulin 4.8, Albumin/Globulin Ratio 0.5L 11/23/16 10:55: Arterial Blood pH 7.433, Arterial Blood Partial Pressure CO2 36.3, Arterial Blood Partial Pressure O2 77.0, Arterial Blood HCO3 23.7, Arterial Blood Oxygen Saturation 95.2, Arterial Blood Base Excess -0.3, Mike Test Positive Height (Feet): 5 Height (Inches): 5.00 Weight (Pounds): 390 General Appearance: alert, mild distress, morbidly obese EENT: PERRL/EOMI, pharynx normal Neck: non-tender, supple Cardiovascular: normal rate, regular rhythm, no gallop/murmur, no JVD Respiratory/Chest: decreased breath sounds Abdomen: distended Extremities: swelling Edema: 4+ Arm (L), 4+ Arm (R), 4+ Leg (L), 4+ Leg (R), 4+ Pedal (L), 4+ Pedal ( R), 4+ Generalized Edema: severe edema 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
[2016-11-23] MEDS: ceFAZolin 2gm/50ml Premix 50 ML IV SCH (20:54)
[2016-11-24] VITALS (24 sets, daily range): BP systolic 73–121; BP diastolic 27–85
[2016-11-24 05:21] LABS: BASOPHILS % (AUTO) 0.5 % (0.0-2.0); EOSINOPHILS % (AUTO) 0.2 % (0.0-3.0); LYMPHOCYTES % (AUTO) 22.2 % (20.0-45.0); MEAN CORPUSCULAR HEMOGLOBIN 30.7 PG (27.0-31.0); MEAN CORPUSCULAR HGB CONC 33.2 G/DL (32.0-36.0); MEAN CORPUSCULAR VOLUME 92 FL (80-99); MEAN PLATELET VOLUME 5.8 FL (6.5-10.1); MONOCYTES % (AUTO) 9.6 % (1.0-10.0); NEUTROPHILS % (AUTO) 67.6 % (45.0-75.0); PLATELET COUNT 190 K/UL (150-450); RED BLOOD COUNT 2.91 M/UL (4.20-5.40); RED CELL DISTRIBUTION WIDTH 15.4 % (11.6-14.8); WHITE BLOOD COUNT 6.8 K/UL (4.8-10.8)
[2016-11-24 05:35] LABS: INR 1.4 (0.9-1.1); PROTHROMBIN TIME 15.1 SEC (9.30-11.50)
[2016-11-24 05:50] LABS: MAGNESIUM 1.8 MG/DL (1.8-2.4); PHOSPHORUS 4.1 MG/DL (2.5-4.9)
[2016-11-24 06:18] LABS: ALANINE AMINOTRANSFERASE < 6 U/L (12-78); ALBUMIN/GLOBULIN RATIO 0.5 (1.0-2.7); ANION GAP 16 mmol/L (5-15); ASPARTATE AMINO TRANSFERASE 13 U/L (15-37); CALCIUM 8.6 MG/DL (8.5-10.1); CARBON DIOXIDE 22 MMOL/L (21-32); CHLORIDE 102 MMOL/L (98-107); CREATININE 4.6 MG/DL (0.55-1.30); POTASSIUM 4.1 MMOL/L (3.5-5.1); SODIUM 140 MMOL/L (136-145); TOTAL PROTEIN 6.8 G/DL (6.4-8.2)
[2016-11-24] MEDS: Docusate 100mg cap ORAL SCH ×2 (09:00→17:56)
[2016-11-24] MEDS: Miralax 17gm pkt ORAL SCH (09:00)
[2016-11-24] MEDS: Midodrine 10mg tab ORAL SCH ×3 (09:59→17:56)
[2016-11-24] MEDS: Revatio 20mg tab ORAL SCH ×3 (09:59→17:56)
[2016-11-24] MEDS: Pantoprazole Inj IVP SCH (10:00)
--- NOTE | 2016-11-24 10:33 | Pulmonolgy Critical Care Note ---
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, 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: 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 - Objective Last 24 Hour Vital Signs Date Time Temp Pulse Resp B/P (MAP) Pulse Ox O2 Delivery O2 Flow Rate FiO2 11/24/16 09:00 69 20 104/27 99 Mechanical Ventilator 40 11/24/16 08:00 98.7 80 20 121/85 99 Mechanical Ventilator 30 11/24/16 08:00 66 11/24/16 08:00 30 11/24/16 07:10 87 20 30 11/24/16 07:00 59 23 105/37 99 Mechanical Ventilator 30 11/24/16 06:00 66 23 107/41 99 Mechanical Ventilator 30 11/24/16 05:17 64 21 30 11/24/16 05:00 69 15 93/39 98 Mechanical Ventilator 30 11/24/16 04:00 98.7 60 20 91/36 99 Mechanical Ventilator 30 11/24/16 04:00 59 11/24/16 04:00 30 11/24/16 03:24 63 20 30 11/24/16 03:00 61 20 90/41 99 Mechanical Ventilator 30 11/24/16 02:00 60 20 95/37 99 Mechanical Ventilator 30 11/24/16 01:03 66 20 30 11/24/16 01:00 61 26 112/75 98 Mechanical Ventilator 30 11/24/16 00:00 75 11/24/16 00:00 30 11/24/16 00:00 99.0 70 32 108/44 99 Mechanical Ventilator 30 11/23/16 23:21 71 20 30 11/23/16 23:00 82 17 110/53 100 Mechanical Ventilator 30 11/23/16 22:00 72 20 107/47 98 Mechanical Ventilator 30 11/23/16 21:17 75 20 30 11/23/16 21:00 65 18 109/59 98 Mechanical Ventilator 30 11/23/16 20:00 98.5 74 20 95/74 99 Mechanical Ventilator 30 11/23/16 20:00 74 11/23/16 20:00 30 11/23/16 19:31 78 22 99 11/23/16 19:11 75 20 30 11/23/16 19:07 97.7 11/23/16 19:00 78 22 87/46 99 Mechanical Ventilator 30 11/23/16 18:00 71 40 85/47 99 Mechanical Ventilator 30 11/23/16 17:00 84 18 97/75 96 Mechanical Ventilator 30 11/23/16 16:57 69 20 30 11/23/16 16:00 97.7 61 20 81/39 97 Mechanical Ventilator 30 11/23/16 16:00 67 11/23/16 16:00 30 11/23/16 15:00 65 18 71/44 94 Mechanical Ventilator 30 11/23/16 14:57 65 20 30 11/23/16 14:00 95 18 86/57 95 Mechanical Ventilator 30 11/23/16 13:10 66 20 30 11/23/16 13:00 67 23 90/47 97 Mechanical Ventilator 30 11/23/16 12:00 97.7 64 20 95/51 96 Mechanical Ventilator 30 11/23/16 12:00 77 11/23/16 12:00 30 11/23/16 11:00 79 20 106/70 94 Mechanical Ventilator 30 11/23/16 10:33 77 18 93 Status: awake Condition: critical HEENT: atraumatic Lungs: clear Heart: HR/BP stable, HR/BP unstable Abdomen: soft, active bowel sounds, feeding tube Extremities: edema Decubiti: location, stage Critical Care - Subjective ROS Limited/Unobtainable: No Condition: critical EKG Rhythm: Sinus Rhythm FI02: 40 Vent Support Breath Rate: 20 Vent Support Mode: AC Vent Tidal Volume: 600 Sputum Amount: Small PEEP: 5.0 PIP: 53 Fluids: kvo I&O: Intake and Output 11/24/16 11/25/16 19:00 07:00 Intake Total 20 ml Output Total 30 ml Balance -10 ml Other 20 ml Output Urine Total 30 ml CXR: no change ET-Tube: 6.0 ET Position: 15 Labs: Laboratory Tests Test 11/23/16 10:55 11/24/16 03:20 Arterial Blood pH 7.433 (7.350-7.450) Arterial Blood Partial Pressure CO2 36.3 mmHg (35.0-45.0) Arterial Blood Partial Pressure O2 77.0 mmHg (75.0-100.0) Arterial Blood HCO3 23.7 mmol/L (22.0-26.0) Arterial Blood Oxygen Saturation 95.2 % (92.0-98.0) Arterial Blood Base Excess -0.3 Mike Test Positive White Blood Count 6.8 K/UL (4.8-10.8) Red Blood Count 2.91 M/UL (4.20-5.40) L Hemoglobin 8.9 G/DL (12.0-16.0) L Hematocrit 26.9 % (37.0-47.0) L Mean Corpuscular Volume 92 FL (80-99) Mean Corpuscular Hemoglobin 30.7 PG (27.0-31.0) Mean Corpuscular Hemoglobin Concent 33.2 G/DL (32.0-36.0) Red Cell Distribution Width 15.4 % (11.6-14.8) H Platelet Count 190 K/UL (150-450) Mean Platelet Volume 5.8 FL (6.5-10.1) L Neutrophils (%) (Auto) 67.6 % (45.0-75.0) Lymphocytes (%) (Auto) 22.2 % (20.0-45.0) Monocytes (%) (Auto) 9.6 % (1.0-10.0) Eosinophils (%) (Auto) 0.2 % (0.0-3.0) Basophils (%) (Auto) 0.5 % (0.0-2.0) Prothrombin Time 15.1 SEC (9.30-11.50) H Prothromb Time International Ratio 1.4 (0.9-1.1) H Sodium Level 140 MMOL/L (136-145) Potassium Level 4.1 MMOL/L (3.5-5.1) Chloride Level 102 MMOL/L (98-107) Carbon Dioxide Level 22 MMOL/L (21-32) Anion Gap 16 mmol/L (5-15) H Blood Urea Nitrogen 65 mg/dL (7-18) H Creatinine 4.6 MG/DL (0.55-1.30) H Estimat Glomerular Filtration Rate mL/min (>60) Glucose Level 80 MG/DL (74-106) Calcium Level 8.6 MG/DL (8.5-10.1) Phosphorus Level 4.1 MG/DL (2.5-4.9) Magnesium Level 1.8 MG/DL (1.8-2.4) Total Bilirubin 0.6 MG/DL (0.2-1.0) Aspartate Amino Transf (AST/SGOT) 13 U/L (15-37) L Alanine Aminotransferase (ALT/SGPT) < 6 U/L (12-78) L Alkaline Phosphatase 66 U/L (46-116) Total Protein 6.8 G/DL (6.4-8.2) Albumin 2.2 G/DL (3.4-5.0) L Globulin 4.6 g/dL Albumin/Globulin Ratio 0.5 (1.0-2.7) L Random Vancomycin Level 26.9 ug/mL ARASH MIRANDA Nov 24, 2016 10:33
--- NOTE | 2016-11-24 12:03 | Diagnostic Imaging Report ---
Indication: DYSPNEA Technique: One view of the chest Comparison: 11/23/2016 Findings: Interim exchange of previous tracheostomy. Cardiomegaly, bilateral interstitial congestion remains, unchanged Impression: Unchanged, over one day, findings as above.
--- NOTE | 2016-11-24 12:07 | General Progress Note ---
Assessment/Plan Status: unchanged, deteriorating - renal parameters Assessment/Plan Cellulitis BLE and R arm- in the setting of chronic leg edema- r/o DVT Anasarca/ bilateral leg lymphedema CKD- and acute renal failure - Cr 3.1 unchanged since last admission- Acute respiratory failure s/p Trach Obese COPD , CHF, Diastolic MINA UTI Anemia GI Bleed, GI bleeding At Fib Pulm HTN h/o Low B12 plan: need to initiate dialysis- due insertion of catheter. and HD today due trach changed add EPOGEN 24 H urine collection in process: CrCl 6 Monitor renal parameters- optimize cardiac and pulm status avoid nephrotoxics- pulmonary support- transfuse as needed Subjective ROS Limited/Unobtainable: No Constitutional: Reports: malaise Allergies: Coded Allergies: AMOXICILLIN (Verified Allergy, Mild, RASH, 09/30/16) PENICILLINS (Unverified Allergy, Unknown, 09/30/16) Objective Last 24 Hour Vital Signs Date Time Temp Pulse Resp B/P (MAP) Pulse Ox O2 Delivery O2 Flow Rate FiO2 11/24/16 10:40 70 20 30 11/24/16 09:00 69 20 104/27 99 Mechanical Ventilator 40 11/24/16 08:46 75 21 30 11/24/16 08:00 98.7 80 20 121/85 99 Mechanical Ventilator 30 11/24/16 08:00 66 11/24/16 08:00 30 11/24/16 07:10 87 20 30 11/24/16 07:00 59 23 105/37 99 Mechanical Ventilator 30 11/24/16 06:00 66 23 107/41 99 Mechanical Ventilator 30 11/24/16 05:17 64 21 30 11/24/16 05:00 69 15 93/39 98 Mechanical Ventilator 30 11/24/16 04:00 98.7 60 20 91/36 99 Mechanical Ventilator 30 11/24/16 04:00 59 11/24/16 04:00 30 11/24/16 03:24 63 20 30 11/24/16 03:00 61 20 90/41 99 Mechanical Ventilator 30 11/24/16 02:00 60 20 95/37 99 Mechanical Ventilator 30 11/24/16 01:03 66 20 30 11/24/16 01:00 61 26 112/75 98 Mechanical Ventilator 30 11/24/16 00:00 75 11/24/16 00:00 30 11/24/16 00:00 99.0 70 32 108/44 99 Mechanical Ventilator 30 11/23/16 23:21 71 20 30 11/23/16 23:00 82 17 110/53 100 Mechanical Ventilator 30 11/23/16 22:00 72 20 107/47 98 Mechanical Ventilator 30 11/23/16 21:17 75 20 30 11/23/16 21:00 65 18 109/59 98 Mechanical Ventilator 30 11/23/16 20:00 98.5 74 20 95/74 99 Mechanical Ventilator 30 11/23/16 20:00 74 11/23/16 20:00 30 11/23/16 19:31 78 22 99 11/23/16 19:11 75 20 30 11/23/16 19:07 97.7 11/23/16 19:00 78 22 87/46 99 Mechanical Ventilator 30 11/23/16 18:00 71 40 85/47 99 Mechanical Ventilator 30 11/23/16 17:00 84 18 97/75 96 Mechanical Ventilator 30 11/23/16 16:57 69 20 30 11/23/16 16:00 97.7 61 20 81/39 97 Mechanical Ventilator 30 11/23/16 16:00 67 11/23/16 16:00 30 11/23/16 15:00 65 18 71/44 94 Mechanical Ventilator 30 11/23/16 14:57 65 20 30 11/23/16 14:00 95 18 86/57 95 Mechanical Ventilator 30 11/23/16 13:10 66 20 30 11/23/16 13:00 67 23 90/47 97 Mechanical Ventilator 30 Intake and Output 11/24/16 11/25/16 19:00 07:00 Intake Total 20 ml Output Total 30 ml Balance -10 ml Other 20 ml Output Urine Total 30 ml Laboratory Tests 11/24/16 03:20: White Blood Count 6.8, Red Blood Count 2.91L, Hemoglobin 8.9L, Hematocrit 26.9L , Mean Corpuscular Volume 92, Mean Corpuscular Hemoglobin 30.7, Mean Corpuscular Hemoglobin Concent 33.2, Red Cell Distribution Width 15.4H, Platelet Count 190, Mean Platelet Volume 5.8L, Neutrophils (%) (Auto) 67.6, Lymphocytes (%) (Auto) 22.2, Monocytes (%) (Auto) 9.6, Eosinophils (%) (Auto) 0.2, Basophils (%) (Auto) 0.5, Prothrombin Time 15.1H, Prothromb Time International Ratio 1.4H, Sodium Level 140, Potassium Level 4.1, Chloride Level 102, Carbon Dioxide Level 22, Anion Gap 16H, Blood Urea Nitrogen 65H, Creatinine 4.6H, Estimat Glomerular Filtration Rate , Glucose Level 80, Calcium Level 8.6, Phosphorus Level 4.1, Magnesium Level 1.8, Total Bilirubin 0.6, Aspartate Amino Transf (AST/SGOT) 13L, Alanine Aminotransferase (ALT/SGPT) < 6L , Alkaline Phosphatase 66, Total Protein 6.8, Albumin 2.2L, Globulin 4.6, Albumin/Globulin Ratio 0.5L, Random Vancomycin Level 26.9 Height (Feet): 5 Height (Inches): 5.00 Weight (Pounds): 392 General Appearance: no apparent distress Cardiovascular: normal rate Respiratory/Chest: decreased breath sounds Abdomen: distended Edema: 2+ Arm (L), 2+ Arm (R), 2+ Leg (L), 2+ Leg (R), 2+ Pedal (L), 2+ Pedal ( R), 2+ Generalized Objective BP low , but doubtful measurement COURTNEY LOPEZ Nov 24, 2016 12:07
--- NOTE | 2016-11-24 15:51 | Diagnostic Imaging Report ---
Loops Indication: LINE Technique: Procedure performed at bedside. Procedural timeout performed. Total sterile technique, including sterile probe cover and sterile gel, sterile gloves, hand hygiene, hat, mask, sterile gown, large sterile drape, and preparation with 2% chlorhexidine utilized. Local anesthesia with 1% lidocaine. Under real-time ultrasound guidance, puncture right internal jugular vein using 18-gauge needle, passage 0.035 guidewire, over which was passed serial dilators and then a 13 Divehi 15 cm triple-lumen temporary dialysis catheter. Guidewire was removed. Catheter ports were aspirated and flushed. The catheter was fixed to the skin. Patient tolerated procedure well. A chest x-ray was obtained, documents catheter tip position at the mid superior vena cava. Comparison: None Findings: As above Impression: Successful bedside placement of right transjugular temporary dialysis catheter, as described.
--- NOTE | 2016-11-24 20:17 | Infectious Diseases Prog Note ---
Assessment/Plan Assessment/Plan Assessment: Cellulitis BLE and R arm- in the setting of chronic leg edema/venous stasis- Limited Venous duplex BLE (non diagnostic), no DVT R arm; mild improved; Main component is of venous stasis so erythema would not completely resolve with abx -Bcx Neg Anasarca/ bilateral leg lymphedema -CXR 11/19: Interstitial edema/CHF unchanged Afebrile, no leukocytosis REnal insufficiency VRE colonzied COPD Diastolic CHF Morbid obesity chronic resp failure, vent/trach dependent (SP trach revision 11/23), Gtbue, pAfib, pleural effusion, MINA, CKD, GERD, morbid obesity, [facility] resident Plan: -Continue Ancef for cellulitis (abx #-) and Continue IV Vancomycin # 09/16 -extremity elevation -edema management -Monitor CBC/BMP, temperatures - vent support, trach care, aspiration precautions Subjective Allergies: Coded Allergies: AMOXICILLIN (Verified Allergy, Mild, RASH, 09/30/16) PENICILLINS (Unverified Allergy, Unknown, 09/30/16) Subjective remains afebrile without leukocytosis on vent Objective Vital Signs Last 24 Hour Vital Signs Date Time Temp Pulse Resp B/P (MAP) Pulse Ox O2 Delivery O2 Flow Rate FiO2 11/24/16 18:59 78 20 30 11/24/16 18:00 80 20 87/40 99 Mechanical Ventilator 30 11/24/16 17:26 66 20 30 11/24/16 17:00 62 21 81/64 99 Mechanical Ventilator 30 11/24/16 16:00 76 11/24/16 16:00 98.4 64 21 87/42 99 Mechanical Ventilator 30 11/24/16 16:00 30 11/24/16 15:00 71 20 101/63 99 Mechanical Ventilator 30 11/24/16 14:56 77 20 30 11/24/16 14:00 74 20 88/52 100 Mechanical Ventilator 40 11/24/16 13:06 65 20 30 11/24/16 13:00 66 21 73/35 99 Mechanical Ventilator 40 11/24/16 12:00 99.1 66 20 88/44 100 Mechanical Ventilator 40 11/24/16 12:00 40 11/24/16 12:00 85 11/24/16 11:00 69 21 95/36 99 Mechanical Ventilator 40 11/24/16 10:40 70 20 30 11/24/16 10:00 77 20 104/27 99 Mechanical Ventilator 40 11/24/16 09:00 69 20 104/27 99 Mechanical Ventilator 40 11/24/16 08:46 75 21 30 11/24/16 08:00 98.7 80 20 121/85 99 Mechanical Ventilator 30 11/24/16 08:00 66 11/24/16 08:00 30 11/24/16 07:10 87 20 30 11/24/16 07:00 59 23 105/37 99 Mechanical Ventilator 30 11/24/16 06:00 66 23 107/41 99 Mechanical Ventilator 30 11/24/16 05:17 64 21 30 11/24/16 05:00 69 15 93/39 98 Mechanical Ventilator 30 11/24/16 04:00 98.7 60 20 91/36 99 Mechanical Ventilator 30 11/24/16 04:00 59 11/24/16 04:00 30 11/24/16 03:24 63 20 30 11/24/16 03:00 61 20 90/41 99 Mechanical Ventilator 30 11/24/16 02:00 60 20 95/37 99 Mechanical Ventilator 30 11/24/16 01:03 66 20 30 11/24/16 01:00 61 26 112/75 98 Mechanical Ventilator 30 11/24/16 00:00 75 11/24/16 00:00 30 11/24/16 00:00 99.0 70 32 108/44 99 Mechanical Ventilator 30 11/23/16 23:21 71 20 30 11/23/16 23:00 82 17 110/53 100 Mechanical Ventilator 30 11/23/16 22:00 72 20 107/47 98 Mechanical Ventilator 30 11/23/16 21:17 75 20 30 11/23/16 21:00 65 18 109/59 98 Mechanical Ventilator 30 Height (Feet): 5 Height (Inches): 5.00 Weight (Pounds): 392 General Appearance: no acute distress HEENT: status post trach Respiratory/Chest: no respiratory distress Cardiovascular: normal rate, regular rhythm Abdomen: normal bowel sounds, soft, non tender, non distended Laboratory Tests Test 11/24/16 03:20 White Blood Count 6.8 K/UL (4.8-10.8) Red Blood Count 2.91 M/UL (4.20-5.40) L Hemoglobin 8.9 G/DL (12.0-16.0) L Hematocrit 26.9 % (37.0-47.0) L Mean Corpuscular Volume 92 FL (80-99) Mean Corpuscular Hemoglobin 30.7 PG (27.0-31.0) Mean Corpuscular Hemoglobin Concent 33.2 G/DL (32.0-36.0) Red Cell Distribution Width 15.4 % (11.6-14.8) H Platelet Count 190 K/UL (150-450) Mean Platelet Volume 5.8 FL (6.5-10.1) L Neutrophils (%) (Auto) 67.6 % (45.0-75.0) Lymphocytes (%) (Auto) 22.2 % (20.0-45.0) Monocytes (%) (Auto) 9.6 % (1.0-10.0) Eosinophils (%) (Auto) 0.2 % (0.0-3.0) Basophils (%) (Auto) 0.5 % (0.0-2.0) Prothrombin Time 15.1 SEC (9.30-11.50) H Prothromb Time International Ratio 1.4 (0.9-1.1) H Sodium Level 140 MMOL/L (136-145) Potassium Level 4.1 MMOL/L (3.5-5.1) Chloride Level 102 MMOL/L (98-107) Carbon Dioxide Level 22 MMOL/L (21-32) Anion Gap 16 mmol/L (5-15) H Blood Urea Nitrogen 65 mg/dL (7-18) H Creatinine 4.6 MG/DL (0.55-1.30) H Estimat Glomerular Filtration Rate mL/min (>60) Glucose Level 80 MG/DL (74-106) Calcium Level 8.6 MG/DL (8.5-10.1) Phosphorus Level 4.1 MG/DL (2.5-4.9) Magnesium Level 1.8 MG/DL (1.8-2.4) Total Bilirubin 0.6 MG/DL (0.2-1.0) Aspartate Amino Transf (AST/SGOT) 13 U/L (15-37) L Alanine Aminotransferase (ALT/SGPT) < 6 U/L (12-78) L Alkaline Phosphatase 66 U/L (46-116) Total Protein 6.8 G/DL (6.4-8.2) Albumin 2.2 G/DL (3.4-5.0) L Globulin 4.6 g/dL Albumin/Globulin Ratio 0.5 (1.0-2.7) L Random Vancomycin Level 26.9 ug/mL Current Medications Medications (Trade) Dose Ordered Sig/Kayln Route PRN Reason Start Time Stop Time Status Last Admin Dose Admin Acetaminophen (Tylenol) 650 mg Q4H PRN ORAL Mild Pain/Temp > 100.5 11/14/16 08:00 12/12/16 07:59 11/22/16 20:22 Albuterol/ Ipratropium (DuoNeb 0.5-3(2.5)mg/3ml) 3 ml Q4H PRN HHN sob 11/21/16 11:45 11/26/16 11:44 Allopurinol (Allopurinol) 300 mg DAILY ORAL 11/16/16 10:00 12/16/16 09:59 11/24/16 10:00 Cefazolin Sodium 50 ml @ 100 mls/hr Q24H IV 11/22/16 21:00 11/29/16 20:59 11/23/16 20:54 Diphenhydramine HCl (Benadryl) 25 mg Q6H PRN IVP Itching 11/19/16 20:15 12/19/16 20:14 11/20/16 09:56 Docusate Sodium (Colace) 100 mg TWICE A DAY ORAL 11/14/16 09:00 12/12/16 08:59 11/24/16 17:56 Epoetin Santos (Procrit (for non ESRD use)) 10,000 units TUE-TUE-TUE SUBQ 11/17/16 21:00 12/17/16 20:59 11/22/16 21:49 Folic Acid (Folate) 1 mg DAILY ORAL 11/14/16 09:00 12/12/16 08:59 11/24/16 09:59 Gabapentin (Neurontin) 600 mg BID ORAL 11/14/16 09:00 12/14/16 08:59 11/24/16 17:56 Midodrine (Pro-Amatine) 10 mg THREE TIMES A DAY ORAL 11/21/16 13:00 12/21/16 12:59 11/24/16 17:56 Morphine Sulfate (Morphine Sulfate) 6 mg Q3H PRN IVP Severe Pain (Pain Scale 7-10) 11/19/16 19:50 11/26/16 19:49 11/23/16 21:39 Pantoprazole (Protonix) 40 mg DAILY IVP 11/14/16 09:00 12/12/16 08:59 11/24/16 10:00 Polyethylene Glycol (Miralax) 17 gm DAILY ORAL 11/14/16 09:00 12/12/16 08:59 11/20/16 09:33 Pravastatin Sodium (Pravachol) 20 mg BEDTIME ORAL 11/14/16 21:00 12/12/16 20:59 11/23/16 20:54 Sevelamer Carbonate (Renvela) 800 mg THREE TIMES A DAY ORAL 11/14/16 09:00 12/12/16 08:59 11/23/16 17:09 Sildenafil Citrate (Revatio) 20 mg THREE TIMES A DAY ORAL 11/14/16 09:00 12/12/16 08:59 11/24/16 17:56 Vancomycin HCl (Vanco rx to dose) 1 ea DAILY PRN MISC Per rx protocol 11/17/16 13:15 12/17/16 13:14 YARELIS ROBLES Nov 24, 2016 20:17
--- NOTE | 2016-11-24 20:39 | General Progress Note ---
Assessment/Plan Status: deteriorating Assessment/Plan This is a 76-year-old, morbidly obese female, admitted with anasarca and cellulitis of the lower leg. The patient was admitted to the directr observation unit on the monitor with the following medical problems. now transfered to icu as of 11-14-16, co of pruritis 1. Anasarca. She appears to be markedly swollen. She will need diuresis. Place the patient on Lasix 20 mg intravenous for now q.12 hours. Cardiology and Pulmonary on the case. We will follow orders. Check laboratory studies daily. lasix drip was discontinued in am, patient will need HD discussed with patient and all questions answered patient agrees to proceed with permacath placement for HD, FFP given to correct coagulopathy prior to permcath placement tomorrow 2. Chronic hypercapnic respiratory failure. Continue with vent support per Pulmonary. will discuss with pulmonary regarding trach issues 3 anemia. s./p transfusion of PRBC Continue monitoring CBC daily. patient to start procrit per nephrology 4. Pulmonary hypertension. hold Eliquis 2.5 mg twice a day until trach is refitted 5. Chronic kidney disease. We will monitor BUN and creatinine. Gentle diuresis for now. Nephrology has been consulted. further workup per nephrology. avoid nephrotoxic agents HD to start soon 6. DVT prophylaxis. The patient is on Eliquis. The patient is Full Code. patient is severely volume overloaded will transfer to ICU for closer monitoring., ABG prn, chest xray and daily weights continue duresis, monitor bp , consider midodrin 5 mg tid if pressure drop, am labs discussed at length with icu nursing staff and consultants elevate right arm with pillow while reclining had revesion of trach on 11-23-16 discussed with icu nurse benadryl 25 mg iv q 6 prn itching NPO still except ice chips HD to start in am Subjective Date patient seen: Nov 24, 2016 ROS Limited/Unobtainable: Yes Respiratory: Reports: other - had episodes of respiratory distress earlier today Allergies: Coded Allergies: AMOXICILLIN (Verified Allergy, Mild, RASH, 09/30/16) PENICILLINS (Unverified Allergy, Unknown, 09/30/16) Objective Last 24 Hour Vital Signs Date Time Temp Pulse Resp B/P (MAP) Pulse Ox O2 Delivery O2 Flow Rate FiO2 11/24/16 20:35 73 20 30 17 18:59 78 20 30 17 18:00 80 20 87/40 99 Mechanical Ventilator 30 11/24/16 17:26 66 20 30 17 17:00 62 21 81/64 99 Mechanical Ventilator 30 17 16:00 76 11/24/16 16:00 98.4 64 21 87/42 99 Mechanical Ventilator 30 11/24/16 16:00 30 11/24/16 15:00 71 20 101/63 99 Mechanical Ventilator 30 11/24/16 14:56 77 20 30 11/24/16 14:00 74 20 88/52 100 Mechanical Ventilator 40 11/24/16 13:06 65 20 30 11/24/16 13:00 66 21 73/35 99 Mechanical Ventilator 40 11/24/16 12:00 99.1 66 20 88/44 100 Mechanical Ventilator 40 11/24/16 12:00 40 11/24/16 12:00 85 11/24/16 11:00 69 21 95/36 99 Mechanical Ventilator 40 11/24/16 10:40 70 20 30 11/24/16 10:00 77 20 104/27 99 Mechanical Ventilator 40 11/24/16 09:00 69 20 104/27 99 Mechanical Ventilator 40 11/24/16 08:46 75 21 30 11/24/16 08:00 98.7 80 20 121/85 99 Mechanical Ventilator 30 11/24/16 08:00 66 11/24/16 08:00 30 11/24/16 07:10 87 20 30 11/24/16 07:00 59 23 105/37 99 Mechanical Ventilator 30 11/24/16 06:00 66 23 107/41 99 Mechanical Ventilator 30 11/24/16 05:17 64 21 30 11/24/16 05:00 69 15 93/39 98 Mechanical Ventilator 30 11/24/16 04:00 98.7 60 20 91/36 99 Mechanical Ventilator 30 11/24/16 04:00 59 11/24/16 04:00 30 17 03:24 63 20 30 11/24/16 03:00 61 20 90/41 99 Mechanical Ventilator 30 11/24/16 02:00 60 20 95/37 99 Mechanical Ventilator 30 11/24/16 01:03 66 20 30 11/24/16 01:00 61 26 112/75 98 Mechanical Ventilator 30 11/24/16 00:00 75 11/24/16 00:00 30 11/24/16 00:00 99.0 70 32 108/44 99 Mechanical Ventilator 30 11/23/16 23:21 71 20 30 11/23/16 23:00 82 17 110/53 100 Mechanical Ventilator 30 11/23/16 22:00 72 20 107/47 98 Mechanical Ventilator 30 11/23/16 21:17 75 20 30 11/23/16 21:00 65 18 109/59 98 Mechanical Ventilator 30 Intake and Output 11/24/16 11/25/16 19:00 07:00 Intake Total 20 ml Output Total 90 ml Balance -70 ml Other 20 ml Output Urine Total 90 ml Laboratory Tests 11/24/16 03:20: White Blood Count 6.8, Red Blood Count 2.91L, Hemoglobin 8.9L, Hematocrit 26.9L , Mean Corpuscular Volume 92, Mean Corpuscular Hemoglobin 30.7, Mean Corpuscular Hemoglobin Concent 33.2, Red Cell Distribution Width 15.4H, Platelet Count 190, Mean Platelet Volume 5.8L, Neutrophils (%) (Auto) 67.6, Lymphocytes (%) (Auto) 22.2, Monocytes (%) (Auto) 9.6, Eosinophils (%) (Auto) 0.2, Basophils (%) (Auto) 0.5, Prothrombin Time 15.1H, Prothromb Time International Ratio 1.4H, Sodium Level 140, Potassium Level 4.1, Chloride Level 102, Carbon Dioxide Level 22, Anion Gap 16H, Blood Urea Nitrogen 65H, Creatinine 4.6H, Estimat Glomerular Filtration Rate , Glucose Level 80, Calcium Level 8.6, Phosphorus Level 4.1, Magnesium Level 1.8, Total Bilirubin 0.6, Aspartate Amino Transf (AST/SGOT) 13L, Alanine Aminotransferase (ALT/SGPT) < 6L , Alkaline Phosphatase 66, Total Protein 6.8, Albumin 2.2L, Globulin 4.6, Albumin/Globulin Ratio 0.5L, Random Vancomycin Level 26.9 Height (Feet): 5 Height (Inches): 5.00 Weight (Pounds): 392 General Appearance: no apparent distress, alert, mild distress, morbidly obese EENT: PERRL/EOMI, pharynx normal Neck: non-tender, supple Cardiovascular: normal rate, regular rhythm, no gallop/murmur, no JVD Respiratory/Chest: decreased breath sounds Abdomen: distended Extremities: swelling Edema: 4+ Arm (L), 4+ Arm (R), 4+ Leg (L), 4+ Leg (R), 4+ Pedal (L), 4+ Pedal ( R), 4+ Generalized Edema: severe edema Neurologic: alert, oriented x 3 Skin: rash Lymphatic: normal anterior cervical (L), normal anterior cervical (R), normal posterior cervical (L), normal posterior cervical (R), normal submandibular (L) , normal submandibular (R), normal supraclavicular (L), normal supraclavicular ( R), normal axillary (L), normal axillary (R), normal inguinal (L), normal inguinal (R), normal other Manny Nolan MD Nov 24, 2016 20:39
--- NOTE | 2016-11-24 20:43 | General Progress Note ---
Assessment/Plan Assessment/Plan ASSESSMENT/RECS: # Coagulopathy 2/2 sepsis --> eliquis currently on hold --> correct pt inr for procedure #. Anemia secondary to chronic disease. Continue to closely monitor. Work up reviewed --> s/p transfusion. watch counts, transfuse if hgb is below 8 #. Anemia of kidney disease. Nephrology service following #. Chronic ventilator dependant, to receive trach. procedure on hold due to elevated inr #. Permanent atrial fibrillation. #. Cellulitis and chronic lymphedema of the bilateral lower extremities. Continue to monitor. On abx per id service #. Congestive heart failure. Subjective ROS Limited/Unobtainable: Yes Allergies: Coded Allergies: AMOXICILLIN (Verified Allergy, Mild, RASH, 09/30/16) PENICILLINS (Unverified Allergy, Unknown, 09/30/16) Subjective on a vent Objective Last 24 Hour Vital Signs Date Time Temp Pulse Resp B/P (MAP) Pulse Ox O2 Delivery O2 Flow Rate FiO2 11/24/16 20:35 73 20 30 11/24/16 18:59 78 20 30 11/24/16 18:00 80 20 87/40 99 Mechanical Ventilator 30 11/24/16 17:26 66 20 30 11/24/16 17:00 62 21 81/64 99 Mechanical Ventilator 30 11/24/16 16:00 76 11/24/16 16:00 98.4 64 21 87/42 99 Mechanical Ventilator 30 11/24/16 16:00 30 11/24/16 15:00 71 20 101/63 99 Mechanical Ventilator 30 11/24/16 14:56 77 20 30 11/24/16 14:00 74 20 88/52 100 Mechanical Ventilator 40 11/24/16 13:06 65 20 30 11/24/16 13:00 66 21 73/35 99 Mechanical Ventilator 40 11/24/16 12:00 99.1 66 20 88/44 100 Mechanical Ventilator 40 11/24/16 12:00 40 11/24/16 12:00 85 11/24/16 11:00 69 21 95/36 99 Mechanical Ventilator 40 11/24/16 10:40 70 20 30 11/24/16 10:00 77 20 104/27 99 Mechanical Ventilator 40 11/24/16 09:00 69 20 104/27 99 Mechanical Ventilator 40 11/24/16 08:46 75 21 30 11/24/16 08:00 98.7 80 20 121/85 99 Mechanical Ventilator 30 11/24/16 08:00 66 11/24/16 08:00 30 11/24/16 07:10 87 20 30 11/24/16 07:00 59 23 105/37 99 Mechanical Ventilator 30 11/24/16 06:00 66 23 107/41 99 Mechanical Ventilator 30 11/24/16 05:17 64 21 30 11/24/16 05:00 69 15 93/39 98 Mechanical Ventilator 30 11/24/16 04:00 98.7 60 20 91/36 99 Mechanical Ventilator 30 11/24/16 04:00 59 11/24/16 04:00 30 11/24/16 03:24 63 20 30 11/24/16 03:00 61 20 90/41 99 Mechanical Ventilator 30 11/24/16 02:00 60 20 95/37 99 Mechanical Ventilator 30 11/24/16 01:03 66 20 30 11/24/16 01:00 61 26 112/75 98 Mechanical Ventilator 30 11/24/16 00:00 75 11/24/16 00:00 30 11/24/16 00:00 99.0 70 32 108/44 99 Mechanical Ventilator 30 11/23/16 23:21 71 20 30 11/23/16 23:00 82 17 110/53 100 Mechanical Ventilator 30 11/23/16 22:00 72 20 107/47 98 Mechanical Ventilator 30 11/23/16 21:17 75 20 30 11/23/16 21:00 65 18 109/59 98 Mechanical Ventilator 30 Intake and Output 11/24/16 11/25/16 19:00 07:00 Intake Total 20 ml Output Total 90 ml Balance -70 ml Other 20 ml Output Urine Total 90 ml Laboratory Tests 11/24/16 03:20: White Blood Count 6.8, Red Blood Count 2.91L, Hemoglobin 8.9L, Hematocrit 26.9L , Mean Corpuscular Volume 92, Mean Corpuscular Hemoglobin 30.7, Mean Corpuscular Hemoglobin Concent 33.2, Red Cell Distribution Width 15.4H, Platelet Count 190, Mean Platelet Volume 5.8L, Neutrophils (%) (Auto) 67.6, Lymphocytes (%) (Auto) 22.2, Monocytes (%) (Auto) 9.6, Eosinophils (%) (Auto) 0.2, Basophils (%) (Auto) 0.5, Prothrombin Time 15.1H, Prothromb Time International Ratio 1.4H, Sodium Level 140, Potassium Level 4.1, Chloride Level 102, Carbon Dioxide Level 22, Anion Gap 16H, Blood Urea Nitrogen 65H, Creatinine 4.6H, Estimat Glomerular Filtration Rate , Glucose Level 80, Calcium Level 8.6, Phosphorus Level 4.1, Magnesium Level 1.8, Total Bilirubin 0.6, Aspartate Amino Transf (AST/SGOT) 13L, Alanine Aminotransferase (ALT/SGPT) < 6L , Alkaline Phosphatase 66, Total Protein 6.8, Albumin 2.2L, Globulin 4.6, Albumin/Globulin Ratio 0.5L, Random Vancomycin Level 26.9 Height (Feet): 5 Height (Inches): 5.00 Weight (Pounds): 392 General Appearance: no apparent distress EENT: normal ENT inspection Neck: normal alignment Cardiovascular: normal peripheral pulses Respiratory/Chest: other Abdomen: normal bowel sounds Skin: warm/dry Serafin Haines Nov 24, 2016 20:43
[2016-11-24] MEDS: ceFAZolin 2gm/50ml Premix 50 ML IV SCH (20:52)
[2016-11-24] MEDS: Epogen (for non ESRD use) SUBQ SCH (21:11)
[2016-11-25] VITALS (24 sets, daily range): BP systolic 88–125; BP diastolic 35–84
[2016-11-25 06:15] LABS: INR 1.3 (0.9-1.1)
[2016-11-25 06:17] LABS: CRP QUANT 4.5 mg/dL (0.00-0.90); URIC ACID 10.7 MG/DL (2.6-7.2)
[2016-11-25 06:19] LABS: ALANINE AMINOTRANSFERASE < 6 U/L (12-78); ALBUMIN/GLOBULIN RATIO 0.5 (1.0-2.7); ANION GAP 13 mmol/L (5-15); ASPARTATE AMINO TRANSFERASE 13 U/L (15-37); CALCIUM 8.5 MG/DL (8.5-10.1); CARBON DIOXIDE 26 MMOL/L (21-32); CHLORIDE 103 MMOL/L (98-107); CREATININE 4.8 MG/DL (0.55-1.30); MAGNESIUM 1.8 MG/DL (1.8-2.4); PHOSPHORUS 3.6 MG/DL (2.5-4.9); POTASSIUM 3.6 MMOL/L (3.5-5.1); SODIUM 142 MMOL/L (136-145); TOTAL PROTEIN 6.6 G/DL (6.4-8.2)
[2016-11-25 06:36] LABS: EOSINOPHILS % (AUTO) 1.9 % (0.0-3.0); LYMPHOCYTES % (AUTO) 21.5 % (20.0-45.0); MEAN CORPUSCULAR HEMOGLOBIN 30.1 PG (27.0-31.0); MEAN CORPUSCULAR HGB CONC 32.5 G/DL (32.0-36.0); MEAN CORPUSCULAR VOLUME 92 FL (80-99); MEAN PLATELET VOLUME 5.3 FL (6.5-10.1); MONOCYTES % (AUTO) 11.3 % (1.0-10.0); NEUTROPHILS % (AUTO) 64.2 % (45.0-75.0); PLATELET COUNT 174 K/UL (150-450); RED BLOOD COUNT 2.84 M/UL (4.20-5.40); RED CELL DISTRIBUTION WIDTH 15.5 % (11.6-14.8); WHITE BLOOD COUNT 6.5 K/UL (4.8-10.8)
[2016-11-25] MEDS: Docusate 100mg cap ORAL SCH ×2 (08:48→17:57)
[2016-11-25] MEDS: Pantoprazole Inj IVP SCH (08:48)
[2016-11-25] MEDS: Miralax 17gm pkt ORAL SCH (08:49)
[2016-11-25] MEDS: Revatio 20mg tab ORAL SCH ×3 (08:49→17:57)
[2016-11-25] MEDS: Midodrine 10mg tab ORAL SCH ×3 (08:49→17:57)
--- NOTE | 2016-11-25 10:09 | Pulmonolgy Critical Care Note ---
Critical Care - Asmt/Plan Problems: (1) Acute and chronic respiratory failure (2) Anasarca (3) ATN (acute tubular necrosis) (4) Atrial fibrillation (5) Morbid obesity (6) Pickwickian syndrome Assessment/Plan: Inr is still 1.8 Respiratory: monitor respiratory rate, CXR Cardiac: continue to monitor HR/BP Renal: F/U I&O, keep IV fluid, check electrolytes Infectious Disease: check cultures Gastrointestinal: continue feedings/current rate Endocrine: monitor blood sugar, continue sliding scale insulin Hematologic: monitor H/H, transfuse if hgb<8.5 Neurologic: PRN Ativan, PRN Morphine, keep patient comfortable Affect: PRN ativan Notes Reviewed: [employer] consultant 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: nurses, consultants, [employer] makers[employer] manager - Objective Last 24 Hour Vital Signs Date Time Temp Pulse Resp B/P (MAP) Pulse Ox O2 Delivery O2 Flow Rate FiO2 11/25/16 09:06 101 20 30 11/25/16 09:00 58 27 112/58 96 Mechanical Ventilator 30 11/25/16 08:00 98.1 59 20 90/42 96 Mechanical Ventilator 30 11/25/16 08:00 30 11/25/16 08:00 57 11/25/16 07:05 60 20 30 11/25/16 07:00 61 20 92/51 99 Mechanical Ventilator 30 11/25/16 06:00 67 21 101/49 99 Mechanical Ventilator 30 11/25/16 05:19 66 20 30 11/25/16 05:00 71 21 100/52 96 Mechanical Ventilator 30 11/25/16 04:00 30 11/25/16 04:00 98.0 60 23 90/49 98 Mechanical Ventilator 30 11/25/16 04:00 68 11/25/16 03:24 59 20 30 11/25/16 03:00 59 23 95/40 98 Mechanical Ventilator 30 11/25/16 02:00 57 20 98/35 98 Mechanical Ventilator 30 11/25/16 01:16 64 20 30 11/25/16 01:00 98.1 57 21 95/41 97 Mechanical Ventilator 30 11/25/16 00:00 59 11/25/16 00:00 98.1 58 21 94/43 98 Mechanical Ventilator 30 11/24/16 23:00 59 21 92/42 97 Mechanical Ventilator 30 11/24/16 23:00 62 20 Mechanical Ventilator 30 11/24/16 22:59 62 20 30 11/24/16 22:00 65 22 89/38 98 Mechanical Ventilator 30 11/24/16 21:00 68 22 84/51 98 Mechanical Ventilator 30 11/24/16 20:35 73 20 30 11/24/16 20:00 82 11/24/16 20:00 30 11/24/16 20:00 98.0 77 22 90/56 98 Mechanical Ventilator 30 11/24/16 19:00 81 22 83/68 98 Mechanical Ventilator 30 11/24/16 18:59 78 20 30 11/24/16 18:00 80 20 87/40 99 Mechanical Ventilator 30 11/24/16 17:26 66 20 30 11/24/16 17:00 62 21 81/64 99 Mechanical Ventilator 30 11/24/16 16:00 76 11/24/16 16:00 98.4 64 21 87/42 99 Mechanical Ventilator 30 11/24/16 16:00 30 11/24/16 15:00 71 20 101/63 99 Mechanical Ventilator 30 11/24/16 14:56 77 20 30 11/24/16 14:00 74 20 88/52 100 Mechanical Ventilator 40 11/24/16 13:06 65 20 30 11/24/16 13:00 66 21 73/35 99 Mechanical Ventilator 40 11/24/16 12:00 99.1 66 20 88/44 100 Mechanical Ventilator 40 11/24/16 12:00 40 11/24/16 12:00 85 11/24/16 11:00 69 21 95/36 99 Mechanical Ventilator 40 11/24/16 10:40 70 20 30 Status: awake Condition: critical HEENT: atraumatic Lungs: clear Heart: HR/BP stable, HR/BP unstable Abdomen: soft, non-tender, active bowel sounds Extremities: no C/C/E, edema Critical Care - Subjective ROS Limited/Unobtainable: No ICU Day: 14 Intubation Day: trach FI02: 30 Vent Support Breath Rate: 20 Vent Support Mode: AC Vent Tidal Volume: 600 Sputum Amount: Small PEEP: 5.0 PIP: 44 I&O: Intake and Output 11/25/16 11/26/16 18:59 06:59 Output Total 0 ml Balance 0 ml Output Urine Total 0 ml CXR: no change ET-Tube: 6.0 ET Position: 15 Labs: Laboratory Tests Test 11/25/16 05:40 White Blood Count 6.5 K/UL (4.8-10.8) Red Blood Count 2.84 M/UL (4.20-5.40) L Hemoglobin 8.5 G/DL (12.0-16.0) L Hematocrit 26.3 % (37.0-47.0) L Mean Corpuscular Volume 92 FL (80-99) Mean Corpuscular Hemoglobin 30.1 PG (27.0-31.0) Mean Corpuscular Hemoglobin Concent 32.5 G/DL (32.0-36.0) Red Cell Distribution Width 15.5 % (11.6-14.8) H Platelet Count 174 K/UL (150-450) Mean Platelet Volume 5.3 FL (6.5-10.1) L Neutrophils (%) (Auto) 64.2 % (45.0-75.0) Lymphocytes (%) (Auto) 21.5 % (20.0-45.0) Monocytes (%) (Auto) 11.3 % (1.0-10.0) H Eosinophils (%) (Auto) 1.9 % (0.0-3.0) Basophils (%) (Auto) 1.0 % (0.0-2.0) Prothrombin Time 14.0 SEC (9.30-11.50) H Prothromb Time International Ratio 1.3 (0.9-1.1) H Activated Partial Thromboplast Time 25 SEC (23-33) Sodium Level 142 MMOL/L (136-145) Potassium Level 3.6 MMOL/L (3.5-5.1) Chloride Level 103 MMOL/L (98-107) Carbon Dioxide Level 26 MMOL/L (21-32) Anion Gap 13 mmol/L (5-15) Blood Urea Nitrogen 70 mg/dL (7-18) H Creatinine 4.8 MG/DL (0.55-1.30) H Estimat Glomerular Filtration Rate mL/min (>60) Glucose Level 80 MG/DL (74-106) Uric Acid 10.7 MG/DL (2.6-7.2) H Calcium Level 8.5 MG/DL (8.5-10.1) Phosphorus Level 3.6 MG/DL (2.5-4.9) Magnesium Level 1.8 MG/DL (1.8-2.4) Total Bilirubin 0.6 MG/DL (0.2-1.0) Aspartate Amino Transf (AST/SGOT) 13 U/L (15-37) L Alanine Aminotransferase (ALT/SGPT) < 6 U/L (12-78) L Alkaline Phosphatase 61 U/L (46-116) C-Reactive Protein, Quantitative 4.5 mg/dL (0.00-0.90) H Pro-B-Type Natriuretic Peptide 03283 pg/mL (0-125) H Total Protein 6.6 G/DL (6.4-8.2) Albumin 2.1 G/DL (3.4-5.0) L Globulin 4.5 g/dL Albumin/Globulin Ratio 0.5 (1.0-2.7) L ARASH MIRANDA Nov 25, 2016 10:08
--- NOTE | 2016-11-25 10:56 | General Progress Note ---
Assessment/Plan Assessment/Plan ASSESSMENT/RECS: # Coagulopathy 2/2 sepsis --> eliquis currently on hold --> correct pt inr for procedure --> inr improving #. Anemia secondary to chronic disease. Continue to closely monitor. Work up reviewed --> s/p transfusion. watch counts, transfuse if hgb is below 8 #. Anemia of kidney disease. Nephrology service following #. Chronic ventilator dependent #. Permanent atrial fibrillation. #. Cellulitis and chronic lymphedema of the bilateral lower extremities. Continue to monitor. On abx per id service #. Congestive heart failure. Subjective ROS Limited/Unobtainable: Yes Allergies: Coded Allergies: AMOXICILLIN (Verified Allergy, Mild, RASH, 09/30/16) PENICILLINS (Unverified Allergy, Unknown, 09/30/16) Subjective in icu, on a vent Objective Last 24 Hour Vital Signs Date Time Temp Pulse Resp B/P (MAP) Pulse Ox O2 Delivery O2 Flow Rate FiO2 11/25/16 09:10 Mechanical Ventilator 50 11/25/16 09:06 101 20 30 11/25/16 09:00 58 27 112/58 96 Mechanical Ventilator 30 11/25/16 08:00 98.1 59 20 90/42 96 Mechanical Ventilator 30 11/25/16 08:00 30 11/25/16 08:00 57 11/25/16 07:05 60 20 30 11/25/16 07:00 61 20 92/51 99 Mechanical Ventilator 30 11/25/16 06:00 67 21 101/49 99 Mechanical Ventilator 30 11/25/16 05:19 66 20 30 11/25/16 05:00 71 21 100/52 96 Mechanical Ventilator 30 11/25/16 04:00 30 11/25/16 04:00 98.0 60 23 90/49 98 Mechanical Ventilator 30 11/25/16 04:00 68 11/25/16 03:24 59 20 30 11/25/16 03:00 59 23 95/40 98 Mechanical Ventilator 30 11/25/16 02:00 57 20 98/35 98 Mechanical Ventilator 30 11/25/16 01:16 64 20 30 11/25/16 01:00 98.1 57 21 95/41 97 Mechanical Ventilator 30 11/25/16 00:00 59 11/25/16 00:00 98.1 58 21 94/43 98 Mechanical Ventilator 30 11/24/16 23:00 59 21 92/42 97 Mechanical Ventilator 30 11/24/16 23:00 62 20 Mechanical Ventilator 30 11/24/16 22:59 62 20 30 11/24/16 22:00 65 22 89/38 98 Mechanical Ventilator 30 11/24/16 21:00 68 22 84/51 98 Mechanical Ventilator 30 11/24/16 20:35 73 20 30 11/24/16 20:00 82 11/24/16 20:00 30 11/24/16 20:00 98.0 77 22 90/56 98 Mechanical Ventilator 30 11/24/16 19:00 81 22 83/68 98 Mechanical Ventilator 30 11/24/16 18:59 78 20 30 11/24/16 18:00 80 20 87/40 99 Mechanical Ventilator 30 11/24/16 17:26 66 20 30 11/24/16 17:00 62 21 81/64 99 Mechanical Ventilator 30 11/24/16 16:00 76 11/24/16 16:00 98.4 64 21 87/42 99 Mechanical Ventilator 30 11/24/16 16:00 30 11/24/16 15:00 71 20 101/63 99 Mechanical Ventilator 30 11/24/16 14:56 77 20 30 11/24/16 14:00 74 20 88/52 100 Mechanical Ventilator 40 11/24/16 13:06 65 20 30 11/24/16 13:00 66 21 73/35 99 Mechanical Ventilator 40 11/24/16 12:00 99.1 66 20 88/44 100 Mechanical Ventilator 40 11/24/16 12:00 40 11/24/16 12:00 85 11/24/16 11:00 69 21 95/36 99 Mechanical Ventilator 40 Intake and Output 11/25/16 11/26/16 19:00 07:00 Output Total 0 ml Balance 0 ml Output Urine Total 0 ml Laboratory Tests 11/25/16 05:40: White Blood Count 6.5, Red Blood Count 2.84L, Hemoglobin 8.5L, Hematocrit 26.3L , Mean Corpuscular Volume 92, Mean Corpuscular Hemoglobin 30.1, Mean Corpuscular Hemoglobin Concent 32.5, Red Cell Distribution Width 15.5H, Platelet Count 174, Mean Platelet Volume 5.3L, Neutrophils (%) (Auto) 64.2, Lymphocytes (%) (Auto) 21.5, Monocytes (%) (Auto) 11.3H, Eosinophils (%) (Auto) 1.9, Basophils (%) (Auto) 1.0, Prothrombin Time 14.0H, Prothromb Time International Ratio 1.3H, Activated Partial Thromboplast Time 25, Sodium Level 142, Potassium Level 3.6, Chloride Level 103, Carbon Dioxide Level 26, Anion Gap 13, Blood Urea Nitrogen 70H, Creatinine 4.8H, Estimat Glomerular Filtration Rate , Glucose Level 80, Uric Acid 10.7H, Calcium Level 8.5, Phosphorus Level 3.6, Magnesium Level 1.8, Total Bilirubin 0.6, Aspartate Amino Transf (AST/SGOT ) 13L, Alanine Aminotransferase (ALT/SGPT) < 6L, Alkaline Phosphatase 61, C- Reactive Protein, Quantitative 4.5H, Pro-B-Type Natriuretic Peptide 64521I, Total Protein 6.6, Albumin 2.1L, Globulin 4.5, Albumin/Globulin Ratio 0.5L Height (Feet): 5 Height (Inches): 5.00 Weight (Pounds): 379 General Appearance: no apparent distress EENT: normal ENT inspection Neck: normal alignment Cardiovascular: normal peripheral pulses Abdomen: no mass Extremities: normal inspection Edema: severe edema Serafin Haines Nov 25, 2016 10:56
--- NOTE | 2016-11-25 16:37 | General Progress Note ---
Assessment/Plan Status: stable Status Narrative dialysed and UFed this am Assessment/Plan Cellulitis BLE and R arm- in the setting of chronic leg edema- r/o DVT Anasarca/ bilateral leg lymphedema CKD- and acute renal failure - Cr 3.1 unchanged since last admission- Acute respiratory failure s/p Trach Obese COPD , CHF, Diastolic MINA UTI Anemia GI Bleed, GI bleeding At Fib Pulm HTN h/o Low B12 plan: dialysed and UFed today 11/25 Due dialysis in am- due trach changed add EPOGEN 24 H urine collection in process: CrCl 6 Monitor renal parameters- optimize cardiac and pulm status avoid nephrotoxics- pulmonary support- transfuse as needed Subjective ROS Limited/Unobtainable: No Constitutional: Reports: malaise, weakness Allergies: Coded Allergies: AMOXICILLIN (Verified Allergy, Mild, RASH, 09/30/16) PENICILLINS (Unverified Allergy, Unknown, 09/30/16) Objective Last 24 Hour Vital Signs Date Time Temp Pulse Resp B/P (MAP) Pulse Ox O2 Delivery O2 Flow Rate FiO2 11/25/16 15:26 73 18 30 11/25/16 15:00 59 19 90/69 97 Mechanical Ventilator 30 11/25/16 14:00 62 21 106/58 97 Mechanical Ventilator 30 11/25/16 13:21 59 20 30 11/25/16 13:00 95 22 125/70 98 Mechanical Ventilator 30 11/25/16 12:15 Mechanical Ventilator 40 11/25/16 12:00 30 11/25/16 12:00 98.0 59 22 110/56 98 Mechanical Ventilator 30 11/25/16 12:00 59 11/25/16 11:24 91 20 30 11/25/16 11:00 65 21 123/84 98 Mechanical Ventilator 30 11/25/16 10:00 66 21 113/58 97 Mechanical Ventilator 30 11/25/16 09:10 Mechanical Ventilator 50 11/25/16 09:06 101 20 30 11/25/16 09:00 58 27 112/58 96 Mechanical Ventilator 30 11/25/16 08:00 98.1 59 20 90/42 96 Mechanical Ventilator 30 11/25/16 08:00 30 11/25/16 08:00 57 11/25/16 07:05 60 20 30 11/25/16 07:00 61 20 92/51 99 Mechanical Ventilator 30 11/25/16 06:00 67 21 101/49 99 Mechanical Ventilator 30 11/25/16 05:19 66 20 30 11/25/16 05:00 71 21 100/52 96 Mechanical Ventilator 30 11/25/16 04:00 30 11/25/16 04:00 98.0 60 23 90/49 98 Mechanical Ventilator 30 11/25/16 04:00 68 11/25/16 03:24 59 20 30 11/25/16 03:00 59 23 95/40 98 Mechanical Ventilator 30 11/25/16 02:00 57 20 98/35 98 Mechanical Ventilator 30 11/25/16 01:16 64 20 30 11/25/16 01:00 98.1 57 21 95/41 97 Mechanical Ventilator 30 11/25/16 00:00 59 11/25/16 00:00 98.1 58 21 94/43 98 Mechanical Ventilator 30 11/24/16 23:00 59 21 92/42 97 Mechanical Ventilator 30 11/24/16 23:00 62 20 Mechanical Ventilator 30 11/24/16 22:59 62 20 30 11/24/16 22:00 65 22 89/38 98 Mechanical Ventilator 30 11/24/16 21:00 68 22 84/51 98 Mechanical Ventilator 30 11/24/16 20:35 73 20 30 11/24/16 20:00 82 11/24/16 20:00 30 11/24/16 20:00 98.0 77 22 90/56 98 Mechanical Ventilator 30 11/24/16 19:00 81 22 83/68 98 Mechanical Ventilator 30 11/24/16 18:59 78 20 30 11/24/16 18:00 80 20 87/40 99 Mechanical Ventilator 30 11/24/16 17:26 66 20 30 11/24/16 17:00 62 21 81/64 99 Mechanical Ventilator 30 Intake and Output 11/25/16 11/26/16 19:00 07:00 Intake Total 3100 ml Output Total 3220 ml Balance -120 ml Hemodialysis 3100 ml Output Urine Total 120 ml Hemodialysis UF 3100 ml Laboratory Tests 11/25/16 05:40: White Blood Count 6.5, Red Blood Count 2.84L, Hemoglobin 8.5L, Hematocrit 26.3L , Mean Corpuscular Volume 92, Mean Corpuscular Hemoglobin 30.1, Mean Corpuscular Hemoglobin Concent 32.5, Red Cell Distribution Width 15.5H, Platelet Count 174, Mean Platelet Volume 5.3L, Neutrophils (%) (Auto) 64.2, Lymphocytes (%) (Auto) 21.5, Monocytes (%) (Auto) 11.3H, Eosinophils (%) (Auto) 1.9, Basophils (%) (Auto) 1.0, Prothrombin Time 14.0H, Prothromb Time International Ratio 1.3H, Activated Partial Thromboplast Time 25, Sodium Level 142, Potassium Level 3.6, Chloride Level 103, Carbon Dioxide Level 26, Anion Gap 13, Blood Urea Nitrogen 70H, Creatinine 4.8H, Estimat Glomerular Filtration Rate , Glucose Level 80, Uric Acid 10.7H, Calcium Level 8.5, Phosphorus Level 3.6, Magnesium Level 1.8, Total Bilirubin 0.6, Aspartate Amino Transf (AST/SGOT ) 13L, Alanine Aminotransferase (ALT/SGPT) < 6L, Alkaline Phosphatase 61, C- Reactive Protein, Quantitative 4.5H, Pro-B-Type Natriuretic Peptide 40457Q, Total Protein 6.6, Albumin 2.1L, Globulin 4.5, Albumin/Globulin Ratio 0.5L Height (Feet): 5 Height (Inches): 5.00 Weight (Pounds): 379 General Appearance: no apparent distress Cardiovascular: normal rate Respiratory/Chest: decreased breath sounds Abdomen: soft Edema: 3+ Arm (L), 3+ Arm (R), 3+ Leg (L), 3+ Leg (R), 3+ Pedal (L), 3+ Pedal ( R), 3+ Generalized Objective BP low , but doubtful measurement COURTNEY LOPEZ Nov 25, 2016 16:37
--- NOTE | 2016-11-25 18:58 | Infectious Diseases Prog Note ---
Assessment/Plan Assessment/Plan Assessment: Cellulitis BLE and R arm- in the setting of chronic leg edema/venous stasis- Limited Venous duplex BLE (non diagnostic), no DVT R arm; mild improved; Main component is of venous stasis so erythema would not completely resolve with abx -Bcx Neg Anasarca/ bilateral leg lymphedema -CXR 11/19: Interstitial edema/CHF unchanged Afebrile, no leukocytosis REnal insufficiency VRE colonzied COPD Diastolic CHF Morbid obesity chronic resp failure, vent/trach dependent (SP trach revision 11/23), Gtbue, pAfib, pleural effusion, MINA, CKD, GERD, morbid obesity, [facility] resident Plan: -Continue Ancef for cellulitis (abx #) and Continue IV Vancomycin # 10/17 -extremity elevation -edema management -Monitor CBC/BMP, temperatures - vent support, trach care, aspiration precautions Subjective Allergies: Coded Allergies: AMOXICILLIN (Verified Allergy, Mild, RASH, 09/30/16) PENICILLINS (Unverified Allergy, Unknown, 09/30/16) Subjective remains afebrile without leukocytosis on vent Objective Vital Signs Last 24 Hour Vital Signs Date Time Temp Pulse Resp B/P (MAP) Pulse Ox O2 Delivery O2 Flow Rate FiO2 11/25/16 18:00 63 21 90/78 98 Mechanical Ventilator 30 11/25/16 17:13 68 21 30 11/25/16 17:00 66 18 88/52 98 Mechanical Ventilator 30 11/25/16 16:00 30 11/25/16 16:00 98.0 60 19 92/56 98 Mechanical Ventilator 30 11/25/16 16:00 66 11/25/16 15:26 73 18 30 11/25/16 15:00 59 19 90/69 97 Mechanical Ventilator 30 11/25/16 14:00 62 21 106/58 97 Mechanical Ventilator 30 11/25/16 13:21 59 20 30 11/25/16 13:00 95 22 125/70 98 Mechanical Ventilator 30 11/25/16 12:15 Mechanical Ventilator 40 11/25/16 12:00 30 11/25/16 12:00 98.0 59 22 110/56 98 Mechanical Ventilator 30 11/25/16 12:00 59 11/25/16 11:24 91 20 30 11/25/16 11:00 65 21 123/84 98 Mechanical Ventilator 30 11/25/16 10:00 66 21 113/58 97 Mechanical Ventilator 30 11/25/16 09:10 Mechanical Ventilator 50 11/25/16 09:06 101 20 30 11/25/16 09:00 58 27 112/58 96 Mechanical Ventilator 30 11/25/16 08:00 98.1 59 20 90/42 96 Mechanical Ventilator 30 11/25/16 08:00 30 11/25/16 08:00 57 11/25/16 07:05 60 20 30 11/25/16 07:00 61 20 92/51 99 Mechanical Ventilator 30 11/25/16 06:00 67 21 101/49 99 Mechanical Ventilator 30 11/25/16 05:19 66 20 30 11/25/16 05:00 71 21 100/52 96 Mechanical Ventilator 30 11/25/16 04:00 30 11/25/16 04:00 98.0 60 23 90/49 98 Mechanical Ventilator 30 11/25/16 04:00 68 11/25/16 03:24 59 20 30 11/25/16 03:00 59 23 95/40 98 Mechanical Ventilator 30 11/25/16 02:00 57 20 98/35 98 Mechanical Ventilator 30 11/25/16 01:16 64 20 30 11/25/16 01:00 98.1 57 21 95/41 97 Mechanical Ventilator 30 11/25/16 00:00 59 11/25/16 00:00 98.1 58 21 94/43 98 Mechanical Ventilator 30 11/24/16 23:00 59 21 92/42 97 Mechanical Ventilator 30 11/24/16 23:00 62 20 Mechanical Ventilator 30 11/24/16 22:59 62 20 30 11/24/16 22:00 65 22 89/38 98 Mechanical Ventilator 30 11/24/16 21:00 68 22 84/51 98 Mechanical Ventilator 30 11/24/16 20:35 73 20 30 11/24/16 20:00 82 11/24/16 20:00 30 11/24/16 20:00 98.0 77 22 90/56 98 Mechanical Ventilator 30 11/24/16 19:00 81 22 83/68 98 Mechanical Ventilator 30 11/24/16 18:59 78 20 30 Height (Feet): 5 Height (Inches): 5.00 Weight (Pounds): 379 General Appearance: no acute distress HEENT: status post trach Respiratory/Chest: decreased breath sounds Cardiovascular: normal rate, regular rhythm Abdomen: normal bowel sounds, soft, non tender, non distended Laboratory Tests Test 11/25/16 05:40 White Blood Count 6.5 K/UL (4.8-10.8) Red Blood Count 2.84 M/UL (4.20-5.40) L Hemoglobin 8.5 G/DL (12.0-16.0) L Hematocrit 26.3 % (37.0-47.0) L Mean Corpuscular Volume 92 FL (80-99) Mean Corpuscular Hemoglobin 30.1 PG (27.0-31.0) Mean Corpuscular Hemoglobin Concent 32.5 G/DL (32.0-36.0) Red Cell Distribution Width 15.5 % (11.6-14.8) H Platelet Count 174 K/UL (150-450) Mean Platelet Volume 5.3 FL (6.5-10.1) L Neutrophils (%) (Auto) 64.2 % (45.0-75.0) Lymphocytes (%) (Auto) 21.5 % (20.0-45.0) Monocytes (%) (Auto) 11.3 % (1.0-10.0) H Eosinophils (%) (Auto) 1.9 % (0.0-3.0) Basophils (%) (Auto) 1.0 % (0.0-2.0) Prothrombin Time 14.0 SEC (9.30-11.50) H Prothromb Time International Ratio 1.3 (0.9-1.1) H Activated Partial Thromboplast Time 25 SEC (23-33) Sodium Level 142 MMOL/L (136-145) Potassium Level 3.6 MMOL/L (3.5-5.1) Chloride Level 103 MMOL/L (98-107) Carbon Dioxide Level 26 MMOL/L (21-32) Anion Gap 13 mmol/L (5-15) Blood Urea Nitrogen 70 mg/dL (7-18) H Creatinine 4.8 MG/DL (0.55-1.30) H Estimat Glomerular Filtration Rate mL/min (>60) Glucose Level 80 MG/DL (74-106) Uric Acid 10.7 MG/DL (2.6-7.2) H Calcium Level 8.5 MG/DL (8.5-10.1) Phosphorus Level 3.6 MG/DL (2.5-4.9) Magnesium Level 1.8 MG/DL (1.8-2.4) Total Bilirubin 0.6 MG/DL (0.2-1.0) Aspartate Amino Transf (AST/SGOT) 13 U/L (15-37) L Alanine Aminotransferase (ALT/SGPT) < 6 U/L (12-78) L Alkaline Phosphatase 61 U/L (46-116) C-Reactive Protein, Quantitative 4.5 mg/dL (0.00-0.90) H Pro-B-Type Natriuretic Peptide 53308 pg/mL (0-125) H Total Protein 6.6 G/DL (6.4-8.2) Albumin 2.1 G/DL (3.4-5.0) L Globulin 4.5 g/dL Albumin/Globulin Ratio 0.5 (1.0-2.7) L Current Medications Medications (Trade) Dose Ordered Sig/Kalyn Route PRN Reason Start Time Stop Time Status Last Admin Dose Admin Acetaminophen (Tylenol) 650 mg Q4H PRN ORAL Mild Pain/Temp > 100.5 11/14/16 08:00 12/12/16 07:59 11/22/16 20:22 Albuterol/ Ipratropium (DuoNeb 0.5-3(2.5)mg/3ml) 3 ml Q4H PRN HHN sob 11/21/16 11:45 11/26/16 11:44 Allopurinol (Allopurinol) 300 mg DAILY ORAL 11/16/16 10:00 12/16/16 09:59 11/24/16 10:00 Cefazolin Sodium 50 ml @ 100 mls/hr Q24H IV 11/22/16 21:00 11/29/16 20:59 11/24/16 20:52 Diphenhydramine HCl (Benadryl) 25 mg Q6H PRN IVP Itching 11/19/16 20:15 12/19/16 20:14 11/20/16 09:56 Docusate Sodium (Colace) 100 mg TWICE A DAY ORAL 11/14/16 09:00 12/12/16 08:59 11/25/16 17:57 Epoetin Santos (Procrit (for non ESRD use)) 10,000 units TUE-TUE-TUE SUBQ 11/17/16 21:00 12/17/16 20:59 11/24/16 21:11 Folic Acid (Folate) 1 mg DAILY ORAL 11/14/16 09:00 12/12/16 08:59 11/24/16 09:59 Gabapentin (Neurontin) 600 mg BID ORAL 11/14/16 09:00 12/14/16 08:59 11/25/16 17:57 Midodrine (Pro-Amatine) 10 mg THREE TIMES A DAY ORAL 11/21/16 13:00 12/21/16 12:59 11/25/16 17:57 Morphine Sulfate (Morphine Sulfate) 6 mg Q3H PRN IVP Severe Pain (Pain Scale 7-10) 11/19/16 19:50 11/26/16 19:49 11/23/16 21:39 Pantoprazole (Protonix) 40 mg DAILY IVP 11/14/16 09:00 12/12/16 08:59 11/25/16 08:48 Polyethylene Glycol (Miralax) 17 gm DAILY ORAL 11/14/16 09:00 12/12/16 08:59 11/20/16 09:33 Pravastatin Sodium (Pravachol) 20 mg BEDTIME ORAL 11/14/16 21:00 12/12/16 20:59 11/24/16 20:53 Sevelamer Carbonate (Renvela) 800 mg THREE TIMES A DAY ORAL 11/14/16 09:00 12/12/16 08:59 11/25/16 17:57 Sildenafil Citrate (Revatio) 20 mg THREE TIMES A DAY ORAL 11/14/16 09:00 12/12/16 08:59 11/25/16 17:57 Vancomycin HCl (Vanco rx to dose) 1 ea DAILY PRN MISC Per rx protocol 11/17/16 13:15 12/17/16 13:14 YARELIS ROBLES Nov 25, 2016 18:58
--- NOTE | 2016-11-25 21:02 | General Progress Note ---
Assessment/Plan Status: progressing Assessment/Plan This is a 76-year-old, morbidly obese female, admitted with anasarca and cellulitis of the lower leg. The patient was admitted to the directr observation unit on the monitor with the following medical problems. now transfered to icu as of 11-14-16, co of pruritis 1. Anasarca. She appears to be markedly swollen. She will need diuresis. Place the patient on Lasix 20 mg intravenous for now q.12 hours. Cardiology and Pulmonary on the case. We will follow orders. Check laboratory studies daily. lasix drip was discontinued in am, HD started 2. Chronic hypercapnic respiratory failure. Continue with vent support per Pulmonary. will discuss with pulmonary regarding trach issues 3 anemia. s./p transfusion of PRBC Continue monitoring CBC daily. patient to start procrit per nephrology 4. Pulmonary hypertension. hold Eliquis 2.5 mg twice a day until trach is refitted 5. Chronic kidney disease. We will monitor BUN and creatinine. Gentle diuresis for now. Nephrology has been consulted. further workup per nephrology. avoid nephrotoxic agents HD to start soon 6. DVT prophylaxis. The patient is on Eliquis. The patient is Full Code. patient is severely volume overloaded will transfer to ICU for closer monitoring., ABG prn, chest xray and daily weights continue duresis, monitor bp , consider midodrin 5 mg tid if pressure drop, am labs discussed at length with icu nursing staff and consultants elevate right arm with pillow while reclining had revesion of trach on 11-23-16 discussed with icu nurse benadryl 25 mg iv q 6 prn itching NPO still except ice chips continue HD per nephrology Subjective Date patient seen: Nov 25, 2016 Allergies: Coded Allergies: AMOXICILLIN (Verified Allergy, Mild, RASH, 09/30/16) PENICILLINS (Unverified Allergy, Unknown, 09/30/16) Subjective no cyanosis reported today, started HD and tolerated well, NPO except ice chips Objective Last 24 Hour Vital Signs Date Time Temp Pulse Resp B/P (MAP) Pulse Ox O2 Delivery O2 Flow Rate FiO2 11/25/16 19:30 72 20 30 11/25/16 18:00 63 21 90/78 98 Mechanical Ventilator 30 11/25/16 17:13 68 21 30 11/25/16 17:00 66 18 88/52 98 Mechanical Ventilator 30 11/25/16 16:00 30 11/25/16 16:00 98.0 60 19 92/56 98 Mechanical Ventilator 30 11/25/16 16:00 66 11/25/16 15:26 73 18 30 11/25/16 15:00 59 19 90/69 97 Mechanical Ventilator 30 11/25/16 14:00 62 21 106/58 97 Mechanical Ventilator 30 11/25/16 13:21 59 20 30 11/25/16 13:00 95 22 125/70 98 Mechanical Ventilator 30 11/25/16 12:15 Mechanical Ventilator 40 11/25/16 12:00 30 11/25/16 12:00 98.0 59 22 110/56 98 Mechanical Ventilator 30 11/25/16 12:00 59 11/25/16 11:24 91 20 30 11/25/16 11:00 65 21 123/84 98 Mechanical Ventilator 30 11/25/16 10:00 66 21 113/58 97 Mechanical Ventilator 30 11/25/16 09:10 Mechanical Ventilator 50 11/25/16 09:06 101 20 30 11/25/16 09:00 58 27 112/58 96 Mechanical Ventilator 30 11/25/16 08:00 98.1 59 20 90/42 96 Mechanical Ventilator 30 11/25/16 08:00 30 11/25/16 08:00 57 11/25/16 07:05 60 20 30 11/25/16 07:00 61 20 92/51 99 Mechanical Ventilator 30 11/25/16 06:00 67 21 101/49 99 Mechanical Ventilator 30 11/25/16 05:19 66 20 30 11/25/16 05:00 71 21 100/52 96 Mechanical Ventilator 30 11/25/16 04:00 30 11/25/16 04:00 98.0 60 23 90/49 98 Mechanical Ventilator 30 11/25/16 04:00 68 11/25/16 03:24 59 20 30 11/25/16 03:00 59 23 95/40 98 Mechanical Ventilator 30 11/25/16 02:00 57 20 98/35 98 Mechanical Ventilator 30 11/25/16 01:16 64 20 30 11/25/16 01:00 98.1 57 21 95/41 97 Mechanical Ventilator 30 11/25/16 00:00 59 11/25/16 00:00 98.1 58 21 94/43 98 Mechanical Ventilator 30 11/24/16 23:00 59 21 92/42 97 Mechanical Ventilator 30 11/24/16 23:00 62 20 Mechanical Ventilator 30 11/24/16 22:59 62 20 30 11/24/16 22:00 65 22 89/38 98 Mechanical Ventilator 30 11/24/16 21:00 68 22 84/51 98 Mechanical Ventilator 30 Intake and Output 11/25/16 11/26/16 19:00 07:00 Intake Total 3160 ml Output Total 3290 ml Balance -130 ml Intake Oral 60 ml Hemodialysis 3100 ml Output Urine Total 190 ml Hemodialysis UF 3100 ml Laboratory Tests 11/25/16 05:40: White Blood Count 6.5, Red Blood Count 2.84L, Hemoglobin 8.5L, Hematocrit 26.3L , Mean Corpuscular Volume 92, Mean Corpuscular Hemoglobin 30.1, Mean Corpuscular Hemoglobin Concent 32.5, Red Cell Distribution Width 15.5H, Platelet Count 174, Mean Platelet Volume 5.3L, Neutrophils (%) (Auto) 64.2, Lymphocytes (%) (Auto) 21.5, Monocytes (%) (Auto) 11.3H, Eosinophils (%) (Auto) 1.9, Basophils (%) (Auto) 1.0, Prothrombin Time 14.0H, Prothromb Time International Ratio 1.3H, Activated Partial Thromboplast Time 25, Sodium Level 142, Potassium Level 3.6, Chloride Level 103, Carbon Dioxide Level 26, Anion Gap 13, Blood Urea Nitrogen 70H, Creatinine 4.8H, Estimat Glomerular Filtration Rate , Glucose Level 80, Uric Acid 10.7H, Calcium Level 8.5, Phosphorus Level 3.6, Magnesium Level 1.8, Total Bilirubin 0.6, Aspartate Amino Transf (AST/SGOT ) 13L, Alanine Aminotransferase (ALT/SGPT) < 6L, Alkaline Phosphatase 61, C- Reactive Protein, Quantitative 4.5H, Pro-B-Type Natriuretic Peptide [id number], Total Protein 6.6, Albumin 2.1L, Globulin 4.5, Albumin/Globulin Ratio 0.5L Height (Feet): 5 Height (Inches): 5.00 Weight (Pounds): 379 General Appearance: morbidly obese EENT: PERRL/EOMI, pharynx normal Cardiovascular: normal rate, regular rhythm, no gallop/murmur, no JVD Respiratory/Chest: decreased breath sounds Abdomen: distended Extremities: swelling Edema: severe edema Neurologic: design checker II-XII grossly normal, oriented x 3, responsive Skin: rash Lymphatic: normal anterior cervical (L), normal anterior cervical (R), normal posterior cervical (L), normal posterior cervical (R), normal submandibular (L) , normal submandibular (R), normal supraclavicular (L), normal supraclavicular ( R), normal axillary (L), normal axillary (R), normal inguinal (L), normal inguinal (R), normal other Manny Nolan MD Nov 25, 2016 21:02
[2016-11-25] MEDS: ceFAZolin 2gm/50ml Premix 50 ML IV SCH (21:18)
[2016-11-26] VITALS (24 sets, daily range): BP systolic 89–119; BP diastolic 34–69
[2016-11-26 05:38] LABS: BASOPHILS % (AUTO) 1.1 % (0.0-2.0); EOSINOPHILS % (AUTO) 4.4 % (0.0-3.0); LYMPHOCYTES % (AUTO) 21.1 % (20.0-45.0); MEAN CORPUSCULAR HEMOGLOBIN 29.4 PG (27.0-31.0); MEAN CORPUSCULAR HGB CONC 31.6 G/DL (32.0-36.0); MEAN CORPUSCULAR VOLUME 93 FL (80-99); MEAN PLATELET VOLUME 5.7 FL (6.5-10.1); MONOCYTES % (AUTO) 11.3 % (1.0-10.0); NEUTROPHILS % (AUTO) 62.2 % (45.0-75.0); PLATELET COUNT 180 K/UL (150-450); RED BLOOD COUNT 2.94 M/UL (4.20-5.40); RED CELL DISTRIBUTION WIDTH 15.2 % (11.6-14.8); WHITE BLOOD COUNT 6.2 K/UL (4.8-10.8)
[2016-11-26 05:51] LABS: ALANINE AMINOTRANSFERASE < 6 U/L (12-78); ALBUMIN/GLOBULIN RATIO 0.4 (1.0-2.7); ANION GAP 11 mmol/L (5-15); ASPARTATE AMINO TRANSFERASE 14 U/L (15-37); CALCIUM 8.3 MG/DL (8.5-10.1); CARBON DIOXIDE 30 MMOL/L (21-32); CHLORIDE 103 MMOL/L (98-107); MAGNESIUM 1.8 MG/DL (1.8-2.4); PHOSPHORUS 2.7 MG/DL (2.5-4.9); POTASSIUM 3.2 MMOL/L (3.5-5.1); SODIUM 144 MMOL/L (136-145); TOTAL PROTEIN 6.5 G/DL (6.4-8.2)
[2016-11-26 06:25] LABS: CRP QUANT 4.8 mg/dL (0.00-0.90); URIC ACID 8.2 MG/DL (2.6-7.2)
[2016-11-26 07:53] LABS: ABG ALLEN TEST POSITIVE; ABG BASE EXCESS 3.3; ABG PCO2 33.2 mmHg (35.0-45.0)
[2016-11-26] MEDS: Pantoprazole Inj IVP SCH ×3 (08:31→21:08)
[2016-11-26] MEDS: Revatio 20mg tab ORAL SCH ×3 (08:31→18:14)
[2016-11-26] MEDS: Miralax 17gm pkt ORAL SCH (08:31)
[2016-11-26] MEDS: Docusate 100mg cap ORAL SCH ×2 (08:31→18:14)
[2016-11-26] MEDS: Midodrine 10mg tab ORAL SCH ×3 (08:31→18:14)
--- NOTE | 2016-11-26 10:13 | Pulmonolgy Critical Care Note ---
Critical Care - Asmt/Plan Problems: (1) Acute and chronic respiratory failure (2) Anasarca (3) ATN (acute tubular necrosis) (4) Atrial fibrillation (5) Morbid obesity (6) Pickwickian syndrome Assessment/Plan: Inr is still 1.8 Respiratory: monitor respiratory rate, adjust FIO2, CXR Cardiac: continue to monitor HR/BP Renal: F/U I&O, check electrolytes Infectious Disease: check cultures, continue antibiotics Gastrointestinal: other - swallow study Endocrine: monitor blood sugar, check HgA1C Neurologic: PRN Ativan Affect: PRN ativan Prophylaxis: Protonix, Heparin Notes Reviewed: customer loyalty representative, renal 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: nurses, consultants, rn case managerathletic equipment manager - Objective Last 24 Hour Vital Signs Date Time Temp Pulse Resp B/P (MAP) Pulse Ox O2 Delivery O2 Flow Rate FiO2 11/26/16 10:00 66 18 103/56 100 Mechanical Ventilator 30 11/26/16 09:00 80 23 115/51 100 Mechanical Ventilator 30 11/26/16 08:35 66 20 30 11/26/16 08:00 98.0 64 16 111/53 97 Mechanical Ventilator 30 11/26/16 08:00 64 11/26/16 08:00 30 11/26/16 07:00 68 20 110/45 99 Mechanical Ventilator 30 11/26/16 06:32 65 20 30 11/26/16 06:00 61 22 119/49 99 Mechanical Ventilator 30 11/26/16 05:00 60 20 90/39 99 Mechanical Ventilator 30 11/26/16 05:00 65 20 30 11/26/16 04:00 65 11/26/16 04:00 30 11/26/16 04:00 97.8 66 20 102/46 99 Mechanical Ventilator 30 11/26/16 03:00 59 18 103/45 98 Mechanical Ventilator 30 11/26/16 02:57 61 20 30 11/26/16 02:00 57 21 93/34 98 Mechanical Ventilator 30 11/26/16 01:05 64 20 30 11/26/16 01:00 58 20 100/63 100 Mechanical Ventilator 30 11/26/16 00:00 56 11/26/16 00:00 30 11/26/16 00:00 97.8 57 20 95/67 98 Mechanical Ventilator 30 11/25/16 23:04 62 20 30 11/25/16 23:00 57 22 94/38 98 Mechanical Ventilator 30 11/25/16 22:00 59 22 110/51 98 Mechanical Ventilator 30 11/25/16 21:08 76 20 30 11/25/16 21:00 64 24 111/56 97 Mechanical Ventilator 30 11/25/16 20:00 68 11/25/16 20:00 30 11/25/16 20:00 59 21 108/35 96 Mechanical Ventilator 30 11/25/16 19:30 72 20 30 11/25/16 19:00 98.0 65 20 100/35 98 Mechanical Ventilator 30 11/25/16 18:00 63 21 90/78 98 Mechanical Ventilator 30 11/25/16 17:13 68 21 30 11/25/16 17:00 66 18 88/52 98 Mechanical Ventilator 30 11/25/16 16:00 30 11/25/16 16:00 98.0 60 19 92/56 98 Mechanical Ventilator 30 11/25/16 16:00 66 11/25/16 15:26 73 18 30 11/25/16 15:00 59 19 90/69 97 Mechanical Ventilator 30 11/25/16 14:00 62 21 106/58 97 Mechanical Ventilator 30 11/25/16 13:21 59 20 30 11/25/16 13:00 95 22 125/70 98 Mechanical Ventilator 30 11/25/16 12:15 Mechanical Ventilator 40 11/25/16 12:00 30 11/25/16 12:00 98.0 59 22 110/56 98 Mechanical Ventilator 30 11/25/16 12:00 59 11/25/16 11:24 91 20 30 11/25/16 11:00 65 21 123/84 98 Mechanical Ventilator 30 Status: awake Condition: critical HEENT: atraumatic Neck: full ROM Lungs: chest wall tender Heart: HR/BP stable Abdomen: soft, non-tender, feeding tube Extremities: no C/C/E, edema Critical Care - Subjective ROS Limited/Unobtainable: No ICU Day: 12 Intubation Day: 12 Interval Events: dialyzed yesterday Condition: critical EKG Rhythm: Sinus Rhythm FI02: 30 Vent Support Breath Rate: 20 Vent Support Mode: AC Vent Tidal Volume: 600 Sputum Amount: Small PEEP: 5.0 PIP: 52 I&O: Intake and Output 11/26/16 11/27/16 19:00 07:00 Intake Total 30 ml Output Total 80 ml Balance -50 ml Intake Oral 30 ml Output Urine Total 80 ml CXR: no change ET-Tube: 6.0 ET Position: 15 Labs: Laboratory Tests Test 11/26/16 05:00 11/26/16 06:32 White Blood Count 6.2 K/UL (4.8-10.8) Red Blood Count 2.94 M/UL (4.20-5.40) L Hemoglobin 8.6 G/DL (12.0-16.0) L Hematocrit 27.3 % (37.0-47.0) L Mean Corpuscular Volume 93 FL (80-99) Mean Corpuscular Hemoglobin 29.4 PG (27.0-31.0) Mean Corpuscular Hemoglobin Concent 31.6 G/DL (32.0-36.0) L Red Cell Distribution Width 15.2 % (11.6-14.8) H Platelet Count 180 K/UL (150-450) Mean Platelet Volume 5.7 FL (6.5-10.1) L Neutrophils (%) (Auto) 62.2 % (45.0-75.0) Lymphocytes (%) (Auto) 21.1 % (20.0-45.0) Monocytes (%) (Auto) 11.3 % (1.0-10.0) H Eosinophils (%) (Auto) 4.4 % (0.0-3.0) H Basophils (%) (Auto) 1.1 % (0.0-2.0) Sodium Level 144 MMOL/L (136-145) Potassium Level 3.2 MMOL/L (3.5-5.1) L Chloride Level 103 MMOL/L (98-107) Carbon Dioxide Level 30 MMOL/L (21-32) Anion Gap 11 mmol/L (5-15) Blood Urea Nitrogen 50 mg/dL (7-18) H Creatinine 4.0 MG/DL (0.55-1.30) H Estimat Glomerular Filtration Rate mL/min (>60) Glucose Level 66 MG/DL (74-106) L Uric Acid 8.2 MG/DL (2.6-7.2) H Calcium Level 8.3 MG/DL (8.5-10.1) L Phosphorus Level 2.7 MG/DL (2.5-4.9) Magnesium Level 1.8 MG/DL (1.8-2.4) Total Bilirubin 0.7 MG/DL (0.2-1.0) Aspartate Amino Transf (AST/SGOT) 14 U/L (15-37) L Alanine Aminotransferase (ALT/SGPT) < 6 U/L (12-78) L Alkaline Phosphatase 59 U/L (46-116) C-Reactive Protein, Quantitative 4.8 mg/dL (0.00-0.90) H Pro-B-Type Natriuretic Peptide 62459 pg/mL (0-125) H Total Protein 6.5 G/DL (6.4-8.2) Albumin 2.0 G/DL (3.4-5.0) L Globulin 4.5 g/dL Albumin/Globulin Ratio 0.4 (1.0-2.7) L Random Vancomycin Level 21.8 ug/mL Arterial Blood pH 7.515 (7.350-7.450) Arterial Blood Partial Pressure CO2 33.2 mmHg (35.0-45.0) L Arterial Blood Partial Pressure O2 474.1 mmHg (75.0-100.0) H Arterial Blood HCO3 26.2 mmol/L (22.0-26.0) H Arterial Blood Oxygen Saturation 99.6 % (92.0-98.0) H Arterial Blood Base Excess 3.3 Mike Test Positive ARASH MIRANDA Nov 26, 2016 10:13
[2016-11-26] MEDS ORDERED: KCl 10% 40mEq/30ml liquid NG ONE (10:15)
--- NOTE | 2016-11-26 12:48 | Diagnostic Imaging Report ---
Indication: DYSPNEA Technique: One view of the chest Comparison: 11/24/2016 Findings: Right jugular temporary dialysis catheter remains. Bilateral interstitial congestive change, retrocardiac opacity, likely left pleural fluid persist, unchanged. Tracheostomy remains. Findings are unchanged Impression: Unchanged, over 2 days, findings as above.
--- NOTE | 2016-11-26 14:16 | Infectious Diseases Prog Note ---
Assessment/Plan Assessment/Plan Assessment: Cellulitis BLE and R arm- in the setting of chronic leg edema/venous stasis- Limited Venous duplex BLE (non diagnostic), no DVT R arm; mild improved; Main component is of venous stasis so erythema would not completely resolve with abx -Bcx Neg Anasarca/ bilateral leg lymphedema -CXR 11/19: Interstitial edema/CHF unchanged Afebrile, no leukocytosis REnal insufficiency VRE colonzied COPD Diastolic CHF Morbid obesity chronic resp failure, vent/trach dependent (SP trach revision 11/23), Gtbue, pAfib, pleural effusion, MINA, CKD, GERD, morbid obesity, NH resident Plan: -Continue Ancef for cellulitis (abx # ) and Continue IV Vancomycin # -extremity elevation -edema management -Monitor CBC/BMP, temperatures - vent support, trach care, aspiration precautions Subjective Constitutional: Denies: no symptoms, fever, chills, fatigue, anorexia, drenching sweats, other Allergies: Coded Allergies: AMOXICILLIN (Verified Allergy, Mild, RASH, 09/30/16) PENICILLINS (Unverified Allergy, Unknown, 09/30/16) Objective Vital Signs Last 24 Hour Vital Signs Date Time Temp Pulse Resp B/P (MAP) Pulse Ox O2 Delivery O2 Flow Rate FiO2 11/26/16 13:08 67 20 30 11/26/16 13:00 80 15 112/63 97 Mechanical Ventilator 30 11/26/16 12:00 30 11/26/16 12:00 60 11/26/16 12:00 97.8 57 20 110/69 98 Mechanical Ventilator 30 11/26/16 11:00 60 23 99/45 100 Mechanical Ventilator 30 11/26/16 10:37 69 20 30 11/26/16 10:00 66 18 103/56 100 Mechanical Ventilator 30 11/26/16 09:00 Mechanical Ventilator 40 11/26/16 09:00 80 23 115/51 100 Mechanical Ventilator 30 11/26/16 08:35 66 20 30 11/26/16 08:00 98.0 64 16 111/53 97 Mechanical Ventilator 30 11/26/16 08:00 64 11/26/16 08:00 30 11/26/16 07:00 68 20 110/45 99 Mechanical Ventilator 30 11/26/16 06:32 65 20 30 11/26/16 06:00 61 22 119/49 99 Mechanical Ventilator 30 11/26/16 05:00 60 20 90/39 99 Mechanical Ventilator 30 11/26/16 05:00 65 20 30 11/26/16 04:00 65 11/26/16 04:00 30 11/26/16 04:00 97.8 66 20 102/46 99 Mechanical Ventilator 30 11/26/16 03:00 59 18 103/45 98 Mechanical Ventilator 30 11/26/16 02:57 61 20 30 11/26/16 02:00 57 21 93/34 98 Mechanical Ventilator 30 11/26/16 01:05 64 20 30 11/26/16 01:00 58 20 100/63 100 Mechanical Ventilator 30 11/26/16 00:00 56 11/26/16 00:00 30 11/26/16 00:00 97.8 57 20 95/67 98 Mechanical Ventilator 30 11/25/16 23:04 62 20 30 11/25/16 23:00 57 22 94/38 98 Mechanical Ventilator 30 11/25/16 22:00 59 22 110/51 98 Mechanical Ventilator 30 11/25/16 21:08 76 20 30 11/25/16 21:00 64 24 111/56 97 Mechanical Ventilator 30 11/25/16 20:00 68 11/25/16 20:00 30 11/25/16 20:00 59 21 108/35 96 Mechanical Ventilator 30 11/25/16 19:30 72 20 30 11/25/16 19:00 98.0 65 20 100/35 98 Mechanical Ventilator 30 11/25/16 18:00 63 21 90/78 98 Mechanical Ventilator 30 11/25/16 17:13 68 21 30 11/25/16 17:00 66 18 88/52 98 Mechanical Ventilator 30 11/25/16 16:00 30 11/25/16 16:00 98.0 60 19 92/56 98 Mechanical Ventilator 30 11/25/16 16:00 66 11/25/16 15:26 73 18 30 11/25/16 15:00 59 19 90/69 97 Mechanical Ventilator 30 Height (Feet): 5 Height (Inches): 5.00 Weight (Pounds): 364 HEENT: anicteric Respiratory/Chest: no respiratory distress Cardiovascular: regular rhythm Abdomen: no organomegaly Laboratory Tests Test 11/26/16 05:00 11/26/16 06:32 White Blood Count 6.2 K/UL (4.8-10.8) Red Blood Count 2.94 M/UL (4.20-5.40) L Hemoglobin 8.6 G/DL (12.0-16.0) L Hematocrit 27.3 % (37.0-47.0) L Mean Corpuscular Volume 93 FL (80-99) Mean Corpuscular Hemoglobin 29.4 PG (27.0-31.0) Mean Corpuscular Hemoglobin Concent 31.6 G/DL (32.0-36.0) L Red Cell Distribution Width 15.2 % (11.6-14.8) H Platelet Count 180 K/UL (150-450) Mean Platelet Volume 5.7 FL (6.5-10.1) L Neutrophils (%) (Auto) 62.2 % (45.0-75.0) Lymphocytes (%) (Auto) 21.1 % (20.0-45.0) Monocytes (%) (Auto) 11.3 % (1.0-10.0) H Eosinophils (%) (Auto) 4.4 % (0.0-3.0) H Basophils (%) (Auto) 1.1 % (0.0-2.0) Sodium Level 144 MMOL/L (136-145) Potassium Level 3.2 MMOL/L (3.5-5.1) L Chloride Level 103 MMOL/L (98-107) Carbon Dioxide Level 30 MMOL/L (21-32) Anion Gap 11 mmol/L (5-15) Blood Urea Nitrogen 50 mg/dL (7-18) H Creatinine 4.0 MG/DL (0.55-1.30) H Estimat Glomerular Filtration Rate mL/min (>60) Glucose Level 66 MG/DL (74-106) L Uric Acid 8.2 MG/DL (2.6-7.2) H Calcium Level 8.3 MG/DL (8.5-10.1) L Phosphorus Level 2.7 MG/DL (2.5-4.9) Magnesium Level 1.8 MG/DL (1.8-2.4) Total Bilirubin 0.7 MG/DL (0.2-1.0) Aspartate Amino Transf (AST/SGOT) 14 U/L (15-37) L Alanine Aminotransferase (ALT/SGPT) < 6 U/L (12-78) L Alkaline Phosphatase 59 U/L (46-116) C-Reactive Protein, Quantitative 4.8 mg/dL (0.00-0.90) H Pro-B-Type Natriuretic Peptide 74488 pg/mL (0-125) H Total Protein 6.5 G/DL (6.4-8.2) Albumin 2.0 G/DL (3.4-5.0) L Globulin 4.5 g/dL Albumin/Globulin Ratio 0.4 (1.0-2.7) L Random Vancomycin Level 21.8 ug/mL Arterial Blood pH 7.515 (7.350-7.450) Arterial Blood Partial Pressure CO2 33.2 mmHg (35.0-45.0) L Arterial Blood Partial Pressure O2 474.1 mmHg (75.0-100.0) H Arterial Blood HCO3 26.2 mmol/L (22.0-26.0) H Arterial Blood Oxygen Saturation 99.6 % (92.0-98.0) H Arterial Blood Base Excess 3.3 Mike Test Positive Current Medications Medications (Trade) Dose Ordered Sig/Kalyn Route PRN Reason Start Time Stop Time Status Last Admin Dose Admin Acetaminophen (Tylenol) 650 mg Q4H PRN ORAL Mild Pain/Temp > 100.5 11/14/16 08:00 12/12/16 07:59 11/22/16 20:22 Allopurinol (Allopurinol) 300 mg DAILY ORAL 11/16/16 10:00 12/16/16 09:59 11/26/16 08:40 Cefazolin Sodium 50 ml @ 100 mls/hr Q24H IV 11/22/16 21:00 11/29/16 20:59 11/25/16 21:18 Diphenhydramine HCl (Benadryl) 25 mg Q6H PRN IVP Itching 11/19/16 20:15 12/19/16 20:14 11/20/16 09:56 Docusate Sodium (Colace) 100 mg TWICE A DAY ORAL 11/14/16 09:00 12/12/16 08:59 11/26/16 08:31 Epoetin Santos (Procrit (for non ESRD use)) 10,000 units TUE-TUE-TUE SUBQ 11/17/16 21:00 12/17/16 20:59 11/24/16 21:11 Folic Acid (Folate) 1 mg DAILY ORAL 11/14/16 09:00 12/12/16 08:59 11/26/16 08:31 Gabapentin (Neurontin) 600 mg BID ORAL 11/14/16 09:00 12/14/16 08:59 11/26/16 08:31 Midodrine (Pro-Amatine) 10 mg THREE TIMES A DAY ORAL 11/21/16 13:00 12/21/16 12:59 11/26/16 13:32 Morphine Sulfate (Morphine Sulfate) 6 mg Q3H PRN IVP Severe Pain (Pain Scale 7-10) 11/19/16 19:50 11/26/16 19:49 11/23/16 21:39 Pantoprazole (Protonix) 40 mg DAILY IVP 11/14/16 09:00 12/12/16 08:59 11/26/16 08:31 Polyethylene Glycol (Miralax) 17 gm DAILY ORAL 11/14/16 09:00 12/12/16 08:59 11/26/16 08:31 Pravastatin Sodium (Pravachol) 20 mg BEDTIME ORAL 11/14/16 21:00 12/12/16 20:59 11/25/16 21:18 Sevelamer Carbonate (Renvela) 800 mg THREE TIMES A DAY ORAL 11/14/16 09:00 12/12/16 08:59 11/26/16 13:32 Sildenafil Citrate (Revatio) 20 mg THREE TIMES A DAY ORAL 11/14/16 09:00 12/12/16 08:59 11/26/16 13:32 Vancomycin HCl (Vanco rx to dose) 1 ea DAILY PRN MISC Per rx protocol 11/17/16 13:15 12/17/16 13:14 LINDSEY HILL M.D. Nov 26, 2016 14:16
--- NOTE | 2016-11-26 15:04 | General Progress Note ---
Assessment/Plan Status: stable Assessment/Plan Cellulitis BLE and R arm- in the setting of chronic leg edema- r/o DVT Anasarca/ bilateral leg lymphedema CKD- and acute renal failure - Acute respiratory failure s/p Trach Obese COPD , CHF, Diastolic MINA UTI Anemia GI Bleed, GI bleeding At Fib Pulm HTN h/o Low B12 plan: dialysed and UFed 11/25 and 11/26 will do again 11/27 Due dialysis in am- due trach changed K supplement add EPOGEN 24 H urine collection in process: CrCl 6 Monitor renal parameters- optimize cardiac and pulm status avoid nephrotoxics- pulmonary support- transfuse as needed Subjective ROS Limited/Unobtainable: Yes Allergies: Coded Allergies: AMOXICILLIN (Verified Allergy, Mild, RASH, 09/30/16) PENICILLINS (Unverified Allergy, Unknown, 09/30/16) Objective Last 24 Hour Vital Signs Date Time Temp Pulse Resp B/P (MAP) Pulse Ox O2 Delivery O2 Flow Rate FiO2 11/26/16 14:00 64 20 97/66 99 Mechanical Ventilator 30 11/26/16 13:08 67 20 30 11/26/16 13:00 80 15 112/63 97 Mechanical Ventilator 30 11/26/16 12:05 Mechanical Ventilator 30 11/26/16 12:00 30 11/26/16 12:00 60 11/26/16 12:00 97.8 57 20 110/69 98 Mechanical Ventilator 30 11/26/16 11:00 60 23 99/45 100 Mechanical Ventilator 30 11/26/16 10:37 69 20 30 11/26/16 10:00 66 18 103/56 100 Mechanical Ventilator 30 11/26/16 09:00 Mechanical Ventilator 40 11/26/16 09:00 80 23 115/51 100 Mechanical Ventilator 30 11/26/16 08:35 66 20 30 11/26/16 08:00 98.0 64 16 111/53 97 Mechanical Ventilator 30 11/26/16 08:00 64 11/26/16 08:00 30 11/26/16 07:00 68 20 110/45 99 Mechanical Ventilator 30 11/26/16 06:32 65 20 30 11/26/16 06:00 61 22 119/49 99 Mechanical Ventilator 30 11/26/16 05:00 60 20 90/39 99 Mechanical Ventilator 30 11/26/16 05:00 65 20 30 11/26/16 04:00 65 11/26/16 04:00 30 11/26/16 04:00 97.8 66 20 102/46 99 Mechanical Ventilator 30 11/26/16 03:00 59 18 103/45 98 Mechanical Ventilator 30 11/26/16 02:57 61 20 30 11/26/16 02:00 57 21 93/34 98 Mechanical Ventilator 30 11/26/16 01:05 64 20 30 11/26/16 01:00 58 20 100/63 100 Mechanical Ventilator 30 11/26/16 00:00 56 11/26/16 00:00 30 11/26/16 00:00 97.8 57 20 95/67 98 Mechanical Ventilator 30 11/25/16 23:04 62 20 30 11/25/16 23:00 57 22 94/38 98 Mechanical Ventilator 30 11/25/16 22:00 59 22 110/51 98 Mechanical Ventilator 30 11/25/16 21:08 76 20 30 11/25/16 21:00 64 24 111/56 97 Mechanical Ventilator 30 11/25/16 20:00 68 11/25/16 20:00 30 11/25/16 20:00 59 21 108/35 96 Mechanical Ventilator 30 11/25/16 19:30 72 20 30 11/25/16 19:00 98.0 65 20 100/35 98 Mechanical Ventilator 30 11/25/16 18:00 63 21 90/78 98 Mechanical Ventilator 30 11/25/16 17:13 68 21 30 11/25/16 17:00 66 18 88/52 98 Mechanical Ventilator 30 11/25/16 16:00 30 11/25/16 16:00 98.0 60 19 92/56 98 Mechanical Ventilator 30 11/25/16 16:00 66 11/25/16 15:26 73 18 30 Intake and Output 11/26/16 11/27/16 19:00 07:00 Intake Total 30 ml Output Total 2765 ml Balance -2735 ml Intake Oral 30 ml Output Urine Total 140 ml Hemodialysis UF 2625 ml Laboratory Tests 11/26/16 05:00: White Blood Count 6.2, Red Blood Count 2.94L, Hemoglobin 8.6L, Hematocrit 27.3L , Mean Corpuscular Volume 93, Mean Corpuscular Hemoglobin 29.4, Mean Corpuscular Hemoglobin Concent 31.6L, Red Cell Distribution Width 15.2H, Platelet Count 180, Mean Platelet Volume 5.7L, Neutrophils (%) (Auto) 62.2, Lymphocytes (%) (Auto) 21.1, Monocytes (%) (Auto) 11.3H, Eosinophils (%) (Auto) 4.4H, Basophils (%) (Auto) 1.1, Sodium Level 144, Potassium Level 3.2L, Chloride Level 103, Carbon Dioxide Level 30, Anion Gap 11, Blood Urea Nitrogen 50H, Creatinine 4.0H, Estimat Glomerular Filtration Rate , Glucose Level 66L, Uric Acid 8.2H, Calcium Level 8.3L, Phosphorus Level 2.7, Magnesium Level 1.8, Total Bilirubin 0.7, Aspartate Amino Transf (AST/SGOT) 14L, Alanine Aminotransferase (ALT/SGPT) < 6L, Alkaline Phosphatase 59, C-Reactive Protein, Quantitative 4.8H, Pro-B-Type Natriuretic Peptide 53405E, Total Protein 6.5, Albumin 2.0L, Globulin 4.5, Albumin/Globulin Ratio 0.4L, Random Vancomycin Level 21.8 11/26/16 06:32: Arterial Blood pH 7.515H, Arterial Blood Partial Pressure CO2 33.2L, Arterial Blood Partial Pressure O2 474.1H, Arterial Blood HCO3 26.2H, Arterial Blood Oxygen Saturation 99.6H, Arterial Blood Base Excess 3.3, Mike Test Positive Height (Feet): 5 Height (Inches): 5.00 Weight (Pounds): 364 General Appearance: no apparent distress EENT: other - intubated Respiratory/Chest: decreased breath sounds Abdomen: other - obese Edema: 2+ Arm (L), 2+ Arm (R), 2+ Leg (L), 2+ Leg (R), 2+ Pedal (L), 2+ Pedal ( R), 2+ Generalized Objective BP low , but doubtful measurement COURTNEY LOPEZ Nov 26, 2016 15:04
--- NOTE | 2016-11-26 17:37 | General Progress Note ---
Assessment/Plan Assessment/Plan ASSESSMENT/RECS: # Coagulopathy 2/2 sepsis --> eliquis currently on hold --> correct pt inr for procedure --> inr improving #. Anemia secondary to chronic disease. Continue to closely monitor. Work up reviewed --> s/p transfusion. watch counts, transfuse if hgb is below 8 #. Anemia of kidney disease. Nephrology service following #. Chronic ventilator dependent #. Permanent atrial fibrillation. #. Cellulitis and chronic lymphedema of the bilateral lower extremities. Continue to monitor. On abx per id service #. Congestive heart failure. Subjective ROS Limited/Unobtainable: Yes Allergies: Coded Allergies: AMOXICILLIN (Verified Allergy, Mild, RASH, 09/30/16) PENICILLINS (Unverified Allergy, Unknown, 09/30/16) Subjective in icu, on a vent Objective Last 24 Hour Vital Signs Date Time Temp Pulse Resp B/P (MAP) Pulse Ox O2 Delivery O2 Flow Rate FiO2 11/26/16 17:07 61 20 30 11/26/16 15:00 63 20 102/54 100 Mechanical Ventilator 30 11/26/16 14:31 72 20 30 11/26/16 14:00 64 20 97/66 99 Mechanical Ventilator 30 11/26/16 13:08 67 20 30 11/26/16 13:00 80 15 112/63 97 Mechanical Ventilator 30 11/26/16 12:05 Mechanical Ventilator 30 11/26/16 12:00 30 11/26/16 12:00 60 11/26/16 12:00 97.8 57 20 110/69 98 Mechanical Ventilator 30 11/26/16 11:00 60 23 99/45 100 Mechanical Ventilator 30 11/26/16 10:37 69 20 30 11/26/16 10:00 66 18 103/56 100 Mechanical Ventilator 30 11/26/16 09:00 Mechanical Ventilator 40 11/26/16 09:00 80 23 115/51 100 Mechanical Ventilator 30 11/26/16 08:35 66 20 30 11/26/16 08:00 98.0 64 16 111/53 97 Mechanical Ventilator 30 11/26/16 08:00 64 11/26/16 08:00 30 11/26/16 07:00 68 20 110/45 99 Mechanical Ventilator 30 11/26/16 06:32 65 20 30 11/26/16 06:00 61 22 119/49 99 Mechanical Ventilator 30 11/26/16 05:00 60 20 90/39 99 Mechanical Ventilator 30 11/26/16 05:00 65 20 30 11/26/16 04:00 65 11/26/16 04:00 30 11/26/16 04:00 97.8 66 20 102/46 99 Mechanical Ventilator 30 11/26/16 03:00 59 18 103/45 98 Mechanical Ventilator 30 11/26/16 02:57 61 20 30 11/26/16 02:00 57 21 93/34 98 Mechanical Ventilator 30 11/26/16 01:05 64 20 30 11/26/16 01:00 58 20 100/63 100 Mechanical Ventilator 30 11/26/16 00:00 56 11/26/16 00:00 30 11/26/16 00:00 97.8 57 20 95/67 98 Mechanical Ventilator 30 11/25/16 23:04 62 20 30 11/25/16 23:00 57 22 94/38 98 Mechanical Ventilator 30 11/25/16 22:00 59 22 110/51 98 Mechanical Ventilator 30 11/25/16 21:08 76 20 30 11/25/16 21:00 64 24 111/56 97 Mechanical Ventilator 30 11/25/16 20:00 68 11/25/16 20:00 30 11/25/16 20:00 59 21 108/35 96 Mechanical Ventilator 30 11/25/16 19:30 72 20 30 11/25/16 19:00 98.0 65 20 100/35 98 Mechanical Ventilator 30 11/25/16 18:00 63 21 90/78 98 Mechanical Ventilator 30 Intake and Output 11/26/16 11/27/16 19:00 07:00 Intake Total 30 ml Output Total 2775 ml Balance -2745 ml Intake Oral 30 ml Output Urine Total 150 ml Hemodialysis UF 2625 ml Laboratory Tests 11/26/16 05:00: White Blood Count 6.2, Red Blood Count 2.94L, Hemoglobin 8.6L, Hematocrit 27.3L , Mean Corpuscular Volume 93, Mean Corpuscular Hemoglobin 29.4, Mean Corpuscular Hemoglobin Concent 31.6L, Red Cell Distribution Width 15.2H, Platelet Count 180, Mean Platelet Volume 5.7L, Neutrophils (%) (Auto) 62.2, Lymphocytes (%) (Auto) 21.1, Monocytes (%) (Auto) 11.3H, Eosinophils (%) (Auto) 4.4H, Basophils (%) (Auto) 1.1, Sodium Level 144, Potassium Level 3.2L, Chloride Level 103, Carbon Dioxide Level 30, Anion Gap 11, Blood Urea Nitrogen 50H, Creatinine 4.0H, Estimat Glomerular Filtration Rate , Glucose Level 66L, Uric Acid 8.2H, Calcium Level 8.3L, Phosphorus Level 2.7, Magnesium Level 1.8, Total Bilirubin 0.7, Aspartate Amino Transf (AST/SGOT) 14L, Alanine Aminotransferase (ALT/SGPT) < 6L, Alkaline Phosphatase 59, C-Reactive Protein, Quantitative 4.8H, Pro-B-Type Natriuretic Peptide 28309O, Total Protein 6.5, Albumin 2.0L, Globulin 4.5, Albumin/Globulin Ratio 0.4L, Random Vancomycin Level 21.8 11/26/16 06:32: Arterial Blood pH 7.515H, Arterial Blood Partial Pressure CO2 33.2L, Arterial Blood Partial Pressure O2 474.1H, Arterial Blood HCO3 26.2H, Arterial Blood Oxygen Saturation 99.6H, Arterial Blood Base Excess 3.3, Mike Test Positive Height (Feet): 5 Height (Inches): 5.00 Weight (Pounds): 364 General Appearance: no apparent distress EENT: normal ENT inspection Cardiovascular: normal peripheral pulses Extremities: non-tender Skin: warm/dry Serafin Haines Nov 26, 2016 17:37
--- NOTE | 2016-11-26 18:51 | General Progress Note ---
Assessment/Plan Status: progressing Assessment/Plan This is a 76-year-old, morbidly obese female, admitted with anasarca and cellulitis of the lower leg. The patient was admitted to the directr observation unit on the monitor with the following medical problems. now transfered to icu as of 11-14-16, co of pruritis 1. Anasarca. She appears to be markedly swollen. She will need diuresis. Place the patient on Lasix 20 mg intravenous for now q.12 hours. Cardiology and Pulmonary on the case. We will follow orders. Check laboratory studies daily. lasix drip was discontinued in am, HD started 2. Chronic hypercapnic respiratory failure. Continue with vent support per Pulmonary. will discuss with pulmonary regarding trach issues 3 anemia. s./p transfusion of PRBC Continue monitoring CBC daily. patient to start procrit per nephrology 4. Pulmonary hypertension. hold Eliquis 2.5 mg twice a day until trach is refitted 5. Chronic kidney disease. We will monitor BUN and creatinine. Gentle diuresis for now. Nephrology has been consulted. further workup per nephrology. avoid nephrotoxic agents HD to start soon 6. DVT prophylaxis. The patient is on Eliquis. The patient is Full 7. nutrition: patient didn't tolerate NGT placment, will discuss with Dr. Rene if G tube placement would be feasible Code. patient is severely volume overloaded will transfer to ICU for closer monitoring., ABG prn, chest xray and daily weights continue duresis, monitor bp , consider midodrin 5 mg tid if pressure drop, am labs discussed at length with icu nursing staff and consultants elevate right arm with pillow while reclining had revesion of trach on 11-23-16 discussed with icu nurse benadryl 25 mg iv q 6 prn itching NPO still except ice chips continue HD per nephrology Subjective Date patient seen: Nov 26, 2016 ROS Limited/Unobtainable: Yes Allergies: Coded Allergies: AMOXICILLIN (Verified Allergy, Mild, RASH, 09/30/16) PENICILLINS (Unverified Allergy, Unknown, 09/30/16) Subjective had HD today, didn't tolerate NGT placement for tube feeding Objective Last 24 Hour Vital Signs Date Time Temp Pulse Resp B/P (MAP) Pulse Ox O2 Delivery O2 Flow Rate FiO2 11/26/16 18:00 60 23 96/41 100 Mechanical Ventilator 30 11/26/16 17:07 61 20 30 11/26/16 17:00 58 18 90/55 100 Mechanical Ventilator 30 11/26/16 16:00 97.8 62 21 100/52 100 Mechanical Ventilator 30 11/26/16 16:00 30 11/26/16 16:00 63 11/26/16 15:00 63 20 102/54 100 Mechanical Ventilator 30 11/26/16 14:31 72 20 30 11/26/16 14:00 64 20 97/66 99 Mechanical Ventilator 30 11/26/16 13:08 67 20 30 11/26/16 13:00 80 15 112/63 97 Mechanical Ventilator 30 11/26/16 12:05 Mechanical Ventilator 30 11/26/16 12:00 30 11/26/16 12:00 60 11/26/16 12:00 97.8 57 20 110/69 98 Mechanical Ventilator 30 11/26/16 11:00 60 23 99/45 100 Mechanical Ventilator 30 11/26/16 10:37 69 20 30 11/26/16 10:00 66 18 103/56 100 Mechanical Ventilator 30 11/26/16 09:00 Mechanical Ventilator 40 11/26/16 09:00 80 23 115/51 100 Mechanical Ventilator 30 11/26/16 08:35 66 20 30 11/26/16 08:00 98.0 64 16 111/53 97 Mechanical Ventilator 30 11/26/16 08:00 64 11/26/16 08:00 30 11/26/16 07:00 68 20 110/45 99 Mechanical Ventilator 30 11/26/16 06:32 65 20 30 11/26/16 06:00 61 22 119/49 99 Mechanical Ventilator 30 11/26/16 05:00 60 20 90/39 99 Mechanical Ventilator 30 11/26/16 05:00 65 20 30 11/26/16 04:00 65 11/26/16 04:00 30 11/26/16 04:00 97.8 66 20 102/46 99 Mechanical Ventilator 30 11/26/16 03:00 59 18 103/45 98 Mechanical Ventilator 30 11/26/16 02:57 61 20 30 11/26/16 02:00 57 21 93/34 98 Mechanical Ventilator 30 11/26/16 01:05 64 20 30 11/26/16 01:00 58 20 100/63 100 Mechanical Ventilator 30 11/26/16 00:00 56 11/26/16 00:00 30 11/26/16 00:00 97.8 57 20 95/67 98 Mechanical Ventilator 30 11/25/16 23:04 62 20 30 11/25/16 23:00 57 22 94/38 98 Mechanical Ventilator 30 11/25/16 22:00 59 22 110/51 98 Mechanical Ventilator 30 11/25/16 21:08 76 20 30 11/25/16 21:00 64 24 111/56 97 Mechanical Ventilator 30 11/25/16 20:00 68 11/25/16 20:00 30 11/25/16 20:00 59 21 108/35 96 Mechanical Ventilator 30 11/25/16 19:30 72 20 30 11/25/16 19:00 98.0 65 20 100/35 98 Mechanical Ventilator 30 Intake and Output 11/26/16 11/27/16 19:00 07:00 Intake Total 30 ml Output Total 2855 ml Balance -2825 ml Intake Oral 30 ml Output Urine Total 230 ml Hemodialysis UF 2625 ml Laboratory Tests 11/26/16 05:00: White Blood Count 6.2, Red Blood Count 2.94L, Hemoglobin 8.6L, Hematocrit 27.3L , Mean Corpuscular Volume 93, Mean Corpuscular Hemoglobin 29.4, Mean Corpuscular Hemoglobin Concent 31.6L, Red Cell Distribution Width 15.2H, Platelet Count 180, Mean Platelet Volume 5.7L, Neutrophils (%) (Auto) 62.2, Lymphocytes (%) (Auto) 21.1, Monocytes (%) (Auto) 11.3H, Eosinophils (%) (Auto) 4.4H, Basophils (%) (Auto) 1.1, Sodium Level 144, Potassium Level 3.2L, Chloride Level 103, Carbon Dioxide Level 30, Anion Gap 11, Blood Urea Nitrogen 50H, Creatinine 4.0H, Estimat Glomerular Filtration Rate , Glucose Level 66L, Uric Acid 8.2H, Calcium Level 8.3L, Phosphorus Level 2.7, Magnesium Level 1.8, Total Bilirubin 0.7, Aspartate Amino Transf (AST/SGOT) 14L, Alanine Aminotransferase (ALT/SGPT) < 6L, Alkaline Phosphatase 59, C-Reactive Protein, Quantitative 4.8H, Pro-B-Type Natriuretic Peptide 59777N, Total Protein 6.5, Albumin 2.0L, Globulin 4.5, Albumin/Globulin Ratio 0.4L, Random Vancomycin Level 21.8 11/26/16 06:32: Arterial Blood pH 7.515H, Arterial Blood Partial Pressure CO2 33.2L, Arterial Blood Partial Pressure O2 474.1H, Arterial Blood HCO3 26.2H, Arterial Blood Oxygen Saturation 99.6H, Arterial Blood Base Excess 3.3, Mike Test Positive Height (Feet): 5 Height (Inches): 5.00 Weight (Pounds): 364 General Appearance: moderate distress, morbidly obese EENT: PERRL/EOMI, pharynx normal Neck: non-tender, supple Cardiovascular: normal rate, regular rhythm, no gallop/murmur, no JVD Respiratory/Chest: respiratory distress, decreased breath sounds Abdomen: distended Extremities: swelling Edema: 2+ Arm (L), 4+ Arm (R), 4+ Leg (L), 4+ Leg (R), 4+ Pedal (L), 4+ Pedal ( R), 4+ Generalized Edema: severe edema Neurologic: surgical assistant certified II-XII grossly normal, oriented x 3, responsive Skin: rash Lymphatic: normal anterior cervical (L), normal anterior cervical (R), normal posterior cervical (L), normal posterior cervical (R), normal submandibular (L) , normal submandibular (R), normal supraclavicular (L), normal supraclavicular ( R), normal axillary (L), normal axillary (R), normal inguinal (L), normal inguinal (R), normal other Manny Nolan MD Nov 26, 2016 18:51
[2016-11-26] MEDS ORDERED: D5 1/2NS 1,000 ML IV SCH (19:00)
--- NOTE | 2016-11-26 19:27 | Cardiology Progress Note ---
Assessment/Plan Assessment/Plan full note dicated anticaog for strok prevention if no recurrent gib adn hgb stabble atris of gi bleeding any way [facility] [id number] Objective Last 24 Hour Vital Signs Date Time Temp Pulse Resp B/P (MAP) Pulse Ox O2 Delivery O2 Flow Rate FiO2 11/26/16 18:48 62 20 30 11/26/16 18:00 60 23 96/41 100 Mechanical Ventilator 30 11/26/16 17:07 61 20 30 11/26/16 17:00 58 18 90/55 100 Mechanical Ventilator 30 11/26/16 16:00 97.8 62 21 100/52 100 Mechanical Ventilator 30 11/26/16 16:00 30 11/26/16 16:00 63 11/26/16 15:00 63 20 102/54 100 Mechanical Ventilator 30 11/26/16 14:31 72 20 30 11/26/16 14:00 64 20 97/66 99 Mechanical Ventilator 30 11/26/16 13:08 67 20 30 11/26/16 13:00 80 15 112/63 97 Mechanical Ventilator 30 11/26/16 12:05 Mechanical Ventilator 30 11/26/16 12:00 30 11/26/16 12:00 60 11/26/16 12:00 97.8 57 20 110/69 98 Mechanical Ventilator 30 11/26/16 11:00 60 23 99/45 100 Mechanical Ventilator 30 11/26/16 10:37 69 20 30 11/26/16 10:00 66 18 103/56 100 Mechanical Ventilator 30 11/26/16 09:00 Mechanical Ventilator 40 11/26/16 09:00 80 23 115/51 100 Mechanical Ventilator 30 11/26/16 08:35 66 20 30 11/26/16 08:00 98.0 64 16 111/53 97 Mechanical Ventilator 30 11/26/16 08:00 64 11/26/16 08:00 30 11/26/16 07:00 68 20 110/45 99 Mechanical Ventilator 30 11/26/16 06:32 65 20 30 11/26/16 06:00 61 22 119/49 99 Mechanical Ventilator 30 11/26/16 05:00 60 20 90/39 99 Mechanical Ventilator 30 11/26/16 05:00 65 20 30 11/26/16 04:00 65 11/26/16 04:00 30 11/26/16 04:00 97.8 66 20 102/46 99 Mechanical Ventilator 30 11/26/16 03:00 59 18 103/45 98 Mechanical Ventilator 30 11/26/16 02:57 61 20 30 11/26/16 02:00 57 21 93/34 98 Mechanical Ventilator 30 11/26/16 01:05 64 20 30 11/26/16 01:00 58 20 100/63 100 Mechanical Ventilator 30 11/26/16 00:00 56 11/26/16 00:00 30 11/26/16 00:00 97.8 57 20 95/67 98 Mechanical Ventilator 30 11/25/16 23:04 62 20 30 11/25/16 23:00 57 22 94/38 98 Mechanical Ventilator 30 11/25/16 22:00 59 22 110/51 98 Mechanical Ventilator 30 11/25/16 21:08 76 20 30 11/25/16 21:00 64 24 111/56 97 Mechanical Ventilator 30 11/25/16 20:00 68 11/25/16 20:00 30 11/25/16 20:00 59 21 108/35 96 Mechanical Ventilator 30 11/25/16 19:30 72 20 30 Intake and Output 11/26/16 11/27/16 19:00 07:00 Intake Total 30 ml Output Total 2855 ml Balance -2825 ml Intake Oral 30 ml Output Urine Total 230 ml Hemodialysis UF 2625 ml Laboratory Tests Test 11/26/16 05:00 11/26/16 06:32 White Blood Count 6.2 K/UL (4.8-10.8) Red Blood Count 2.94 M/UL (4.20-5.40) L Hemoglobin 8.6 G/DL (12.0-16.0) L Hematocrit 27.3 % (37.0-47.0) L Mean Corpuscular Volume 93 FL (80-99) Mean Corpuscular Hemoglobin 29.4 PG (27.0-31.0) Mean Corpuscular Hemoglobin Concent 31.6 G/DL (32.0-36.0) L Red Cell Distribution Width 15.2 % (11.6-14.8) H Platelet Count 180 K/UL (150-450) Mean Platelet Volume 5.7 FL (6.5-10.1) L Neutrophils (%) (Auto) 62.2 % (45.0-75.0) Lymphocytes (%) (Auto) 21.1 % (20.0-45.0) Monocytes (%) (Auto) 11.3 % (1.0-10.0) H Eosinophils (%) (Auto) 4.4 % (0.0-3.0) H Basophils (%) (Auto) 1.1 % (0.0-2.0) Sodium Level 144 MMOL/L (136-145) Potassium Level 3.2 MMOL/L (3.5-5.1) L Chloride Level 103 MMOL/L (98-107) Carbon Dioxide Level 30 MMOL/L (21-32) Anion Gap 11 mmol/L (5-15) Blood Urea Nitrogen 50 mg/dL (7-18) H Creatinine 4.0 MG/DL (0.55-1.30) H Estimat Glomerular Filtration Rate mL/min (>60) Glucose Level 66 MG/DL (74-106) L Uric Acid 8.2 MG/DL (2.6-7.2) H Calcium Level 8.3 MG/DL (8.5-10.1) L Phosphorus Level 2.7 MG/DL (2.5-4.9) Magnesium Level 1.8 MG/DL (1.8-2.4) Total Bilirubin 0.7 MG/DL (0.2-1.0) Aspartate Amino Transf (AST/SGOT) 14 U/L (15-37) L Alanine Aminotransferase (ALT/SGPT) < 6 U/L (12-78) L Alkaline Phosphatase 59 U/L (46-116) C-Reactive Protein, Quantitative 4.8 mg/dL (0.00-0.90) H Pro-B-Type Natriuretic Peptide 05310 pg/mL (0-125) H Total Protein 6.5 G/DL (6.4-8.2) Albumin 2.0 G/DL (3.4-5.0) L Globulin 4.5 g/dL Albumin/Globulin Ratio 0.4 (1.0-2.7) L Random Vancomycin Level 21.8 ug/mL Arterial Blood pH 7.515 (7.350-7.450) Arterial Blood Partial Pressure CO2 33.2 mmHg (35.0-45.0) L Arterial Blood Partial Pressure O2 474.1 mmHg (75.0-100.0) H Arterial Blood HCO3 26.2 mmol/L (22.0-26.0) H Arterial Blood Oxygen Saturation 99.6 % (92.0-98.0) H Arterial Blood Base Excess 3.3 Mike Test Positive BRIANA TELLES Nov 26, 2016 19:27
[2016-11-26] MEDS: ceFAZolin 2gm/50ml Premix 50 ML IV SCH (21:01)
[2016-11-26] MEDS: Epogen (for non ESRD use) SUBQ SCH (21:04)
[2016-11-27] VITALS (24 sets, daily range): BP systolic 87–119; BP diastolic 32–83
[2016-11-27 05:29] LABS: BASOPHILS % (AUTO) 0.5 % (0.0-2.0); EOSINOPHILS % (AUTO) 4.6 % (0.0-3.0); MEAN CORPUSCULAR HEMOGLOBIN 28.6 PG (27.0-31.0); MEAN CORPUSCULAR VOLUME 92 FL (80-99); MEAN PLATELET VOLUME 5.8 FL (6.5-10.1); MONOCYTES % (AUTO) 9.8 % (1.0-10.0); NEUTROPHILS % (AUTO) 66.1 % (45.0-75.0); PLATELET COUNT 186 K/UL (150-450); RED CELL DISTRIBUTION WIDTH 15.5 % (11.6-14.8); WHITE BLOOD COUNT 7.4 K/UL (4.8-10.8)
[2016-11-27 05:52] LABS: ALANINE AMINOTRANSFERASE < 6 U/L (12-78); ALBUMIN/GLOBULIN RATIO 0.4 (1.0-2.7); ANION GAP 12 mmol/L (5-15); ASPARTATE AMINO TRANSFERASE 15 U/L (15-37); CALCIUM 8.1 MG/DL (8.5-10.1); CARBON DIOXIDE 30 MMOL/L (21-32); CHLORIDE 102 MMOL/L (98-107); CREATININE 3.5 MG/DL (0.55-1.30); POTASSIUM 3.1 MMOL/L (3.5-5.1); SODIUM 144 MMOL/L (136-145); TOTAL PROTEIN 7.1 G/DL (6.4-8.2)
[2016-11-27] MEDS: Midodrine 10mg tab ORAL SCH ×3 (08:47→17:32)
[2016-11-27] MEDS: Docusate 100mg cap ORAL SCH ×2 (08:47→17:33)
[2016-11-27] MEDS: Revatio 20mg tab ORAL SCH ×3 (08:47→17:33)
[2016-11-27] MEDS: Miralax 17gm pkt ORAL SCH (08:47)
[2016-11-27] MEDS ORDERED: D5 1/2NS 1000ml IV ONE (09:29)
--- NOTE | 2016-11-27 10:23 | Infectious Diseases Prog Note ---
Assessment/Plan Assessment/Plan A. Cellulitis of legs VDRF s/p revision tracheostomy COPD CKD Anemia Morbid obesity Diastolic CHF P: Continue Ancef Subjective ROS Limited/Unobtainable: Yes Constitutional: Reports: no symptoms Allergies: Coded Allergies: AMOXICILLIN (Verified Allergy, Mild, RASH, 09/30/16) PENICILLINS (Unverified Allergy, Unknown, 09/30/16) Objective Vital Signs Last 24 Hour Vital Signs Date Time Temp Pulse Resp B/P (MAP) Pulse Ox O2 Delivery O2 Flow Rate FiO2 11/27/16 10:00 64 20 93/47 100 Mechanical Ventilator 30 11/27/16 09:15 77 20 30 11/27/16 09:00 63 18 110/41 96 Mechanical Ventilator 30 11/27/16 08:00 69 11/27/16 08:00 30 11/27/16 08:00 98.2 86 18 108/79 98 Mechanical Ventilator 30 11/27/16 07:08 76 20 30 11/27/16 07:00 67 20 101/48 100 Mechanical Ventilator 30 11/27/16 06:00 72 23 113/40 100 Mechanical Ventilator 30 11/27/16 05:06 72 20 30 11/27/16 05:00 66 23 95/40 100 Mechanical Ventilator 30 11/27/16 04:00 30 11/27/16 04:00 63 11/27/16 04:00 97.6 62 23 94/39 100 Mechanical Ventilator 30 11/27/16 03:00 60 20 100/42 99 Mechanical Ventilator 30 11/27/16 02:35 65 20 30 11/27/16 02:00 60 23 100/39 99 Mechanical Ventilator 30 11/27/16 01:00 62 22 97/36 99 Mechanical Ventilator 30 11/27/16 00:23 57 20 30 11/27/16 00:00 60 11/27/16 00:00 30 11/27/16 00:00 98.4 58 21 93/35 99 Mechanical Ventilator 30 11/26/16 23:00 64 20 102/38 99 Mechanical Ventilator 30 11/26/16 22:36 61 20 30 11/26/16 22:00 60 23 100/39 99 Mechanical Ventilator 30 11/26/16 21:00 62 20 117/65 100 Mechanical Ventilator 30 11/26/16 20:53 64 20 30 11/26/16 20:00 98.0 60 23 100/39 100 Mechanical Ventilator 30 11/26/16 20:00 58 11/26/16 20:00 30 11/26/16 19:00 57 23 89/38 100 Mechanical Ventilator 30 11/26/16 18:48 62 20 30 11/26/16 18:00 60 23 96/41 100 Mechanical Ventilator 30 11/26/16 17:07 61 20 30 11/26/16 17:00 58 18 90/55 100 Mechanical Ventilator 30 11/26/16 16:00 97.8 62 21 100/52 100 Mechanical Ventilator 30 11/26/16 16:00 30 11/26/16 16:00 63 11/26/16 15:00 63 20 102/54 100 Mechanical Ventilator 30 11/26/16 14:31 72 20 30 11/26/16 14:00 64 20 97/66 99 Mechanical Ventilator 30 11/26/16 13:08 67 20 30 11/26/16 13:00 80 15 112/63 97 Mechanical Ventilator 30 11/26/16 12:05 Mechanical Ventilator 30 11/26/16 12:00 30 11/26/16 12:00 60 11/26/16 12:00 97.8 57 20 110/69 98 Mechanical Ventilator 30 11/26/16 11:00 60 23 99/45 100 Mechanical Ventilator 30 11/26/16 10:37 69 20 30 Height (Feet): 5 Height (Inches): 5.00 Weight (Pounds): 365 General Appearance: no acute distress HEENT: status post trach Respiratory/Chest: lungs clear, other - on ventilator Cardiovascular: normal rate, other - HD catheter Abdomen: soft, non tender, other - GT feeding Extremities: other - generalized edema Skin: other - erythema of shins Neurologic/Psychiatric: alert, responsive Laboratory Tests Test 11/27/16 04:00 White Blood Count 7.4 K/UL (4.8-10.8) Red Blood Count 3.10 M/UL (4.20-5.40) L Hemoglobin 8.9 G/DL (12.0-16.0) L Hematocrit 28.7 % (37.0-47.0) L Mean Corpuscular Volume 92 FL (80-99) Mean Corpuscular Hemoglobin 28.6 PG (27.0-31.0) Mean Corpuscular Hemoglobin Concent 31.0 G/DL (32.0-36.0) L Red Cell Distribution Width 15.5 % (11.6-14.8) H Platelet Count 186 K/UL (150-450) Mean Platelet Volume 5.8 FL (6.5-10.1) L Neutrophils (%) (Auto) 66.1 % (45.0-75.0) Lymphocytes (%) (Auto) 19.0 % (20.0-45.0) L Monocytes (%) (Auto) 9.8 % (1.0-10.0) Eosinophils (%) (Auto) 4.6 % (0.0-3.0) H Basophils (%) (Auto) 0.5 % (0.0-2.0) Sodium Level 144 MMOL/L (136-145) Potassium Level 3.1 MMOL/L (3.5-5.1) L Chloride Level 102 MMOL/L (98-107) Carbon Dioxide Level 30 MMOL/L (21-32) Anion Gap 12 mmol/L (5-15) Blood Urea Nitrogen 37 mg/dL (7-18) H Creatinine 3.5 MG/DL (0.55-1.30) H Estimat Glomerular Filtration Rate mL/min (>60) Glucose Level 73 MG/DL (74-106) L Calcium Level 8.1 MG/DL (8.5-10.1) L Total Bilirubin 1.0 MG/DL (0.2-1.0) Aspartate Amino Transf (AST/SGOT) 15 U/L (15-37) Alanine Aminotransferase (ALT/SGPT) < 6 U/L (12-78) L Alkaline Phosphatase 60 U/L (46-116) Pro-B-Type Natriuretic Peptide 85531 pg/mL (0-125) H Total Protein 7.1 G/DL (6.4-8.2) Albumin 2.2 G/DL (3.4-5.0) L Globulin 4.9 g/dL Albumin/Globulin Ratio 0.4 (1.0-2.7) L Current Medications Medications (Trade) Dose Ordered Sig/Kalyn Route PRN Reason Start Time Stop Time Status Last Admin Dose Admin Acetaminophen (Tylenol) 650 mg Q4H PRN ORAL Mild Pain/Temp > 100.5 11/14/16 08:00 12/12/16 07:59 11/22/16 20:22 Allopurinol (Allopurinol) 300 mg DAILY ORAL 11/16/16 10:00 12/16/16 09:59 11/27/16 08:47 Cefazolin Sodium 50 ml @ 100 mls/hr Q24H IV 11/22/16 21:00 11/29/16 20:59 11/26/16 21:01 Chlorhexidine Gluconate (Marni-Hex 2%) 1 applic Q24H TOPIC 11/27/16 20:00 12/27/16 19:59 Dextrose/Sodium Chloride 1,000 ml @ 50 mls/hr Q20H IV 11/26/16 19:00 12/26/16 18:59 11/26/16 19:28 Diphenhydramine HCl (Benadryl) 25 mg Q6H PRN IVP Itching 11/19/16 20:15 12/19/16 20:14 11/20/16 09:56 Docusate Sodium (Colace) 100 mg TWICE A DAY ORAL 11/14/16 09:00 12/12/16 08:59 11/27/16 08:47 Epoetin Santos (Procrit (for non ESRD use)) 10,000 units TUE-TUE-TUE SUBQ 11/17/16 21:00 12/17/16 20:59 11/26/16 21:04 Folic Acid (Folate) 1 mg DAILY ORAL 11/14/16 09:00 12/12/16 08:59 11/27/16 08:47 Gabapentin (Neurontin) 600 mg BID ORAL 11/14/16 09:00 12/14/16 08:59 11/27/16 08:47 Midodrine (Pro-Amatine) 10 mg THREE TIMES A DAY ORAL 11/21/16 13:00 12/21/16 12:59 11/27/16 08:47 Pantoprazole (Protonix) 40 mg DAILY IVP 11/14/16 09:00 12/12/16 08:59 11/26/16 21:05 Polyethylene Glycol (Miralax) 17 gm DAILY ORAL 11/14/16 09:00 12/12/16 08:59 11/27/16 08:47 Pravastatin Sodium (Pravachol) 20 mg BEDTIME ORAL 11/14/16 21:00 12/12/16 20:59 11/26/16 21:03 Sildenafil Citrate (Revatio) 20 mg THREE TIMES A DAY ORAL 11/14/16 09:00 12/12/16 08:59 11/27/16 08:47 CARY ESTES Nov 27, 2016 10:23
--- NOTE | 2016-11-27 11:36 | Diagnostic Imaging Report ---
Indication: Dyspnea Comparison: 11/26/16 A single view chest radiograph was obtained. Findings: Vascular prominence and interstitial edema with cardiomegaly demonstrated. Tracheostomy and right jugular Harry catheters are in good position. The bones are slightly osteo-. Impression: Interstitial edema/CHF. No change
--- NOTE | 2016-11-27 12:11 | Pulmonolgy Critical Care Note ---
Critical Care - Asmt/Plan Problems: (1) Acute and chronic respiratory failure (2) Anasarca (3) ATN (acute tubular necrosis) (4) Atrial fibrillation (5) Morbid obesity (6) Pickwickian syndrome Assessment/Plan: Inr is still 1.8 Respiratory: monitor respiratory rate, adjust FIO2, CXR Cardiac: continue to monitor HR/BP Renal: F/U I&O, keep IV fluid, increase IV fluid, check electrolytes Infectious Disease: check cultures, continue antibiotics Gastrointestinal: continue feedings/current rate Endocrine: monitor blood sugar, check HgA1C, continue sliding scale insulin Hematologic: monitor H/H, transfuse if hgb<8.5 Neurologic: PRN Ativan, keep patient comfortable Affect: PRN ativan Prophylaxis: Heparin Notes Reviewed: 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 journalist, 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: nurses, consultants, supervisor case loadingbuilding manager - Objective Last 24 Hour Vital Signs Date Time Temp Pulse Resp B/P (MAP) Pulse Ox O2 Delivery O2 Flow Rate FiO2 11/27/16 11:26 63 20 30 11/27/16 11:00 65 16 97/57 98 Mechanical Ventilator 30 11/27/16 10:00 64 20 93/47 100 Mechanical Ventilator 30 11/27/16 09:15 77 20 30 11/27/16 09:00 63 18 110/41 96 Mechanical Ventilator 30 11/27/16 08:00 69 11/27/16 08:00 30 11/27/16 08:00 98.2 86 18 108/79 98 Mechanical Ventilator 30 11/27/16 07:08 76 20 30 11/27/16 07:00 67 20 101/48 100 Mechanical Ventilator 30 11/27/16 06:00 72 23 113/40 100 Mechanical Ventilator 30 11/27/16 05:06 72 20 30 11/27/16 05:00 66 23 95/40 100 Mechanical Ventilator 30 11/27/16 04:00 30 11/27/16 04:00 63 11/27/16 04:00 97.6 62 23 94/39 100 Mechanical Ventilator 30 11/27/16 03:00 60 20 100/42 99 Mechanical Ventilator 30 11/27/16 02:35 65 20 30 11/27/16 02:00 60 23 100/39 99 Mechanical Ventilator 30 11/27/16 01:00 62 22 97/36 99 Mechanical Ventilator 30 11/27/16 00:23 57 20 30 11/27/16 00:00 60 11/27/16 00:00 30 11/27/16 00:00 98.4 58 21 93/35 99 Mechanical Ventilator 30 11/26/16 23:00 64 20 102/38 99 Mechanical Ventilator 30 11/26/16 22:36 61 20 30 11/26/16 22:00 60 23 100/39 99 Mechanical Ventilator 30 11/26/16 21:00 62 20 117/65 100 Mechanical Ventilator 30 11/26/16 20:53 64 20 30 11/26/16 20:00 98.0 60 23 100/39 100 Mechanical Ventilator 30 11/26/16 20:00 58 11/26/16 20:00 30 11/26/16 19:00 57 23 89/38 100 Mechanical Ventilator 30 11/26/16 18:48 62 20 30 11/26/16 18:00 60 23 96/41 100 Mechanical Ventilator 30 11/26/16 17:07 61 20 30 11/26/16 17:00 58 18 90/55 100 Mechanical Ventilator 30 11/26/16 16:00 97.8 62 21 100/52 100 Mechanical Ventilator 30 11/26/16 16:00 30 11/26/16 16:00 63 11/26/16 15:00 63 20 102/54 100 Mechanical Ventilator 30 11/26/16 14:31 72 20 30 11/26/16 14:00 64 20 97/66 99 Mechanical Ventilator 30 11/26/16 13:08 67 20 30 11/26/16 13:00 80 15 112/63 97 Mechanical Ventilator 30 Status: awake Condition: critical HEENT: atraumatic, normocephalic Neck: full ROM Lungs: clear, chest wall tender Heart: HR/BP stable, HR/BP unstable Abdomen: soft, non-tender, active bowel sounds Extremities: no C/C/E, edema Decubiti: location Critical Care - Subjective ROS Limited/Unobtainable: No Interval Events: 14 Condition: critical FI02: 30 Vent Support Breath Rate: 20 Vent Support Mode: AC Vent Tidal Volume: 600 Sputum Amount: None PEEP: 5.0 PIP: 56 I&O: Intake and Output 11/27/16 11/28/16 19:00 07:00 Intake Total 200 ml Output Total 70 ml Balance 130 ml IV Total 200 ml Output Urine Total 70 ml CXR: no change ET-Tube: 6.0 ET Position: 15 Labs: Laboratory Tests Test 11/27/16 04:00 White Blood Count 7.4 K/UL (4.8-10.8) Red Blood Count 3.10 M/UL (4.20-5.40) L Hemoglobin 8.9 G/DL (12.0-16.0) L Hematocrit 28.7 % (37.0-47.0) L Mean Corpuscular Volume 92 FL (80-99) Mean Corpuscular Hemoglobin 28.6 PG (27.0-31.0) Mean Corpuscular Hemoglobin Concent 31.0 G/DL (32.0-36.0) L Red Cell Distribution Width 15.5 % (11.6-14.8) H Platelet Count 186 K/UL (150-450) Mean Platelet Volume 5.8 FL (6.5-10.1) L Neutrophils (%) (Auto) 66.1 % (45.0-75.0) Lymphocytes (%) (Auto) 19.0 % (20.0-45.0) L Monocytes (%) (Auto) 9.8 % (1.0-10.0) Eosinophils (%) (Auto) 4.6 % (0.0-3.0) H Basophils (%) (Auto) 0.5 % (0.0-2.0) Sodium Level 144 MMOL/L (136-145) Potassium Level 3.1 MMOL/L (3.5-5.1) L Chloride Level 102 MMOL/L (98-107) Carbon Dioxide Level 30 MMOL/L (21-32) Anion Gap 12 mmol/L (5-15) Blood Urea Nitrogen 37 mg/dL (7-18) H Creatinine 3.5 MG/DL (0.55-1.30) H Estimat Glomerular Filtration Rate mL/min (>60) Glucose Level 73 MG/DL (74-106) L Calcium Level 8.1 MG/DL (8.5-10.1) L Total Bilirubin 1.0 MG/DL (0.2-1.0) Aspartate Amino Transf (AST/SGOT) 15 U/L (15-37) Alanine Aminotransferase (ALT/SGPT) < 6 U/L (12-78) L Alkaline Phosphatase 60 U/L (46-116) Pro-B-Type Natriuretic Peptide 80238 pg/mL (0-125) H Total Protein 7.1 G/DL (6.4-8.2) Albumin 2.2 G/DL (3.4-5.0) L Globulin 4.9 g/dL Albumin/Globulin Ratio 0.4 (1.0-2.7) L ARASH MIRANDA Nov 27, 2016 12:11
--- NOTE | 2016-11-27 14:16 | General Progress Note ---
Assessment/Plan Status: stable Assessment/Plan Cellulitis BLE and R arm- in the setting of chronic leg edema- r/o DVT Anasarca/ bilateral leg lymphedema CKD- and acute renal failure - Acute respiratory failure s/p Trach Obese COPD , CHF, Diastolic MINA UTI Anemia GI Bleed, GI bleeding At Fib Pulm HTN h/o Low B12 plan: 3rd dialysis and UF in row is in process now K supplement on EPOGEN 24 H urine collection in process: CrCl 6 Monitor renal parameters- optimize cardiac and pulm status avoid nephrotoxics- pulmonary support- transfuse as needed ? DC planning Subjective ROS Limited/Unobtainable: No Allergies: Coded Allergies: AMOXICILLIN (Verified Allergy, Mild, RASH, 09/30/16) PENICILLINS (Unverified Allergy, Unknown, 09/30/16) Objective Last 24 Hour Vital Signs Date Time Temp Pulse Resp B/P (MAP) Pulse Ox O2 Delivery O2 Flow Rate FiO2 11/27/16 14:00 62 23 96/43 98 Mechanical Ventilator 30 11/27/16 13:00 60 18 111/63 98 Mechanical Ventilator 30 11/27/16 12:48 58 20 30 11/27/16 12:20 Mechanical Ventilator 30 11/27/16 12:00 30 11/27/16 12:00 62 11/27/16 12:00 98.0 68 21 91/42 99 Mechanical Ventilator 30 11/27/16 11:26 63 20 30 11/27/16 11:00 65 16 97/57 98 Mechanical Ventilator 30 11/27/16 10:00 64 20 93/47 100 Mechanical Ventilator 30 11/27/16 09:15 77 20 30 11/27/16 09:10 Mechanical Ventilator 30 11/27/16 09:00 63 18 110/41 96 Mechanical Ventilator 30 11/27/16 08:00 69 11/27/16 08:00 30 11/27/16 08:00 98.2 86 18 108/79 98 Mechanical Ventilator 30 11/27/16 07:08 76 20 30 11/27/16 07:00 67 20 101/48 100 Mechanical Ventilator 30 11/27/16 06:00 72 23 113/40 100 Mechanical Ventilator 30 11/27/16 05:06 72 20 30 11/27/16 05:00 66 23 95/40 100 Mechanical Ventilator 30 11/27/16 04:00 30 11/27/16 04:00 63 11/27/16 04:00 97.6 62 23 94/39 100 Mechanical Ventilator 30 11/27/16 03:00 60 20 100/42 99 Mechanical Ventilator 30 11/27/16 02:35 65 20 30 11/27/16 02:00 60 23 100/39 99 Mechanical Ventilator 30 11/27/16 01:00 62 22 97/36 99 Mechanical Ventilator 30 11/27/16 00:23 57 20 30 11/27/16 00:00 60 11/27/16 00:00 30 11/27/16 00:00 98.4 58 21 93/35 99 Mechanical Ventilator 30 11/26/16 23:00 64 20 102/38 99 Mechanical Ventilator 30 11/26/16 22:36 61 20 30 11/26/16 22:00 60 23 100/39 99 Mechanical Ventilator 30 11/26/16 21:00 62 20 117/65 100 Mechanical Ventilator 30 11/26/16 20:53 64 20 30 11/26/16 20:00 98.0 60 23 100/39 100 Mechanical Ventilator 30 11/26/16 20:00 58 11/26/16 20:00 30 11/26/16 19:00 57 23 89/38 100 Mechanical Ventilator 30 11/26/16 18:48 62 20 30 11/26/16 18:00 60 23 96/41 100 Mechanical Ventilator 30 11/26/16 17:07 61 20 30 11/26/16 17:00 58 18 90/55 100 Mechanical Ventilator 30 11/26/16 16:00 97.8 62 21 100/52 100 Mechanical Ventilator 30 11/26/16 16:00 30 11/26/16 16:00 63 11/26/16 15:00 63 20 102/54 100 Mechanical Ventilator 30 11/26/16 14:31 72 20 30 Intake and Output 11/27/16 11/28/16 19:00 07:00 Intake Total 200 ml Output Total 2470 ml Balance -2270 ml IV Total 200 ml Output Urine Total 120 ml Hemodialysis UF 2350 ml Laboratory Tests 11/27/16 04:00: White Blood Count 7.4, Red Blood Count 3.10L, Hemoglobin 8.9L, Hematocrit 28.7L , Mean Corpuscular Volume 92, Mean Corpuscular Hemoglobin 28.6, Mean Corpuscular Hemoglobin Concent 31.0L, Red Cell Distribution Width 15.5H, Platelet Count 186, Mean Platelet Volume 5.8L, Neutrophils (%) (Auto) 66.1, Lymphocytes (%) (Auto) 19.0L, Monocytes (%) (Auto) 9.8, Eosinophils (%) (Auto) 4.6H, Basophils (%) (Auto) 0.5, Sodium Level 144, Potassium Level 3.1L, Chloride Level 102, Carbon Dioxide Level 30, Anion Gap 12, Blood Urea Nitrogen 37H, Creatinine 3.5H, Estimat Glomerular Filtration Rate , Glucose Level 73L, Calcium Level 8.1L, Total Bilirubin 1.0, Aspartate Amino Transf (AST/SGOT) 15, Alanine Aminotransferase (ALT/SGPT) < 6L, Alkaline Phosphatase 60, Pro-B-Type Natriuretic Peptide 21247T, Total Protein 7.1, Albumin 2.2L, Globulin 4.9, Albumin/Globulin Ratio 0.4L Height (Feet): 5 Height (Inches): 5.00 Weight (Pounds): 365 General Appearance: no apparent distress Respiratory/Chest: decreased breath sounds Abdomen: distended Objective BP low , but doubtful measurement COURTNEY LOPEZ Nov 27, 2016 14:15
[2016-11-27] MEDS ORDERED: KCl 10% 40mEq/30ml liquid NG ONE (14:30)
[2016-11-27] MEDS: DiphenhydrAMINE 50mg/ml Inj IVP PRN (16:25)
--- NOTE | 2016-11-27 17:25 | Cardiology Progress Note ---
Assessment/Plan Problem List: (1) Chronic respiratory failure (2) Anasarca (3) Anemia (4) Cellulitis (5) Pickwickian syndrome (6) MINA (obstructive sleep apnea) (7) Atrial fibrillation (8) Morbid obesity Status: not improved, unchanged Status Narrative Pt is hypotensive, ? intravascular vol depletion, despite severe edema/ anasarca , ? autonomic insufficiency Respiratory failure - on vent support AF - persistent - ventricular rates controlled, off meds Assessment/Plan Continue HD/ ultrafiltration Agree w/ proamitine Consider anticoagulation for AF CVA risk prevention if no contraindications. Subjective ROS Limited/Unobtainable: Yes Subjective Cardiology for Dr. Peralta Pt awake, on vent Objective Last 24 Hour Vital Signs Date Time Temp Pulse Resp B/P (MAP) Pulse Ox O2 Delivery O2 Flow Rate FiO2 11/27/16 16:00 65 11/27/16 16:00 30 11/27/16 16:00 97.5 65 18 93/48 98 Mechanical Ventilator 30 11/27/16 15:00 62 19 113/54 98 Mechanical Ventilator 30 11/27/16 14:57 71 21 30 11/27/16 14:00 62 23 96/43 98 Mechanical Ventilator 30 11/27/16 13:00 60 18 111/63 98 Mechanical Ventilator 30 11/27/16 12:48 58 20 30 11/27/16 12:20 Mechanical Ventilator 30 11/27/16 12:00 30 11/27/16 12:00 62 11/27/16 12:00 98.0 68 21 91/42 99 Mechanical Ventilator 30 11/27/16 11:26 63 20 30 11/27/16 11:00 65 16 97/57 98 Mechanical Ventilator 30 11/27/16 10:00 64 20 93/47 100 Mechanical Ventilator 30 11/27/16 09:15 77 20 30 11/27/16 09:10 Mechanical Ventilator 30 11/27/16 09:00 63 18 110/41 96 Mechanical Ventilator 30 11/27/16 08:00 69 11/27/16 08:00 30 11/27/16 08:00 98.2 86 18 108/79 98 Mechanical Ventilator 30 11/27/16 07:08 76 20 30 11/27/16 07:00 67 20 101/48 100 Mechanical Ventilator 30 11/27/16 06:00 72 23 113/40 100 Mechanical Ventilator 30 11/27/16 05:06 72 20 30 11/27/16 05:00 66 23 95/40 100 Mechanical Ventilator 30 11/27/16 04:00 30 11/27/16 04:00 63 11/27/16 04:00 97.6 62 23 94/39 100 Mechanical Ventilator 30 11/27/16 03:00 60 20 100/42 99 Mechanical Ventilator 30 11/27/16 02:35 65 20 30 11/27/16 02:00 60 23 100/39 99 Mechanical Ventilator 30 11/27/16 01:00 62 22 97/36 99 Mechanical Ventilator 30 11/27/16 00:23 57 20 30 11/27/16 00:00 60 11/27/16 00:00 30 11/27/16 00:00 98.4 58 21 93/35 99 Mechanical Ventilator 30 11/26/16 23:00 64 20 102/38 99 Mechanical Ventilator 30 11/26/16 22:36 61 20 30 11/26/16 22:00 60 23 100/39 99 Mechanical Ventilator 30 11/26/16 21:00 62 20 117/65 100 Mechanical Ventilator 30 11/26/16 20:53 64 20 30 11/26/16 20:00 98.0 60 23 100/39 100 Mechanical Ventilator 30 11/26/16 20:00 58 11/26/16 20:00 30 11/26/16 19:00 57 23 89/38 100 Mechanical Ventilator 30 11/26/16 18:48 62 20 30 11/26/16 18:00 60 23 96/41 100 Mechanical Ventilator 30 General Appearance: obese, on vent EENT: PERRL/EOMI Neck: no JVD Rhythm: Afib Cardiovascular: normal rate, irregularly irregular Respiratory/Chest: lungs clear - clear anteriorly Abdomen: non tender, soft, other - obese. 2+ pitting edema of abd wall Extremities: severe edema - 3+ pitting edema, distal UE, LE bilat - ansarca Intake and Output 11/27/16 11/28/16 19:00 07:00 Intake Total 200 ml Output Total 2530 ml Balance -2330 ml IV Total 200 ml Output Urine Total 180 ml Hemodialysis UF 2350 ml Laboratory Tests Test 11/27/16 04:00 White Blood Count 7.4 K/UL (4.8-10.8) Red Blood Count 3.10 M/UL (4.20-5.40) L Hemoglobin 8.9 G/DL (12.0-16.0) L Hematocrit 28.7 % (37.0-47.0) L Mean Corpuscular Volume 92 FL (80-99) Mean Corpuscular Hemoglobin 28.6 PG (27.0-31.0) Mean Corpuscular Hemoglobin Concent 31.0 G/DL (32.0-36.0) L Red Cell Distribution Width 15.5 % (11.6-14.8) H Platelet Count 186 K/UL (150-450) Mean Platelet Volume 5.8 FL (6.5-10.1) L Neutrophils (%) (Auto) 66.1 % (45.0-75.0) Lymphocytes (%) (Auto) 19.0 % (20.0-45.0) L Monocytes (%) (Auto) 9.8 % (1.0-10.0) Eosinophils (%) (Auto) 4.6 % (0.0-3.0) H Basophils (%) (Auto) 0.5 % (0.0-2.0) Sodium Level 144 MMOL/L (136-145) Potassium Level 3.1 MMOL/L (3.5-5.1) L Chloride Level 102 MMOL/L (98-107) Carbon Dioxide Level 30 MMOL/L (21-32) Anion Gap 12 mmol/L (5-15) Blood Urea Nitrogen 37 mg/dL (7-18) H Creatinine 3.5 MG/DL (0.55-1.30) H Estimat Glomerular Filtration Rate mL/min (>60) Glucose Level 73 MG/DL (74-106) L Calcium Level 8.1 MG/DL (8.5-10.1) L Total Bilirubin 1.0 MG/DL (0.2-1.0) Aspartate Amino Transf (AST/SGOT) 15 U/L (15-37) Alanine Aminotransferase (ALT/SGPT) < 6 U/L (12-78) L Alkaline Phosphatase 60 U/L (46-116) Pro-B-Type Natriuretic Peptide 56487 pg/mL (0-125) H Total Protein 7.1 G/DL (6.4-8.2) Albumin 2.2 G/DL (3.4-5.0) L Globulin 4.9 g/dL Albumin/Globulin Ratio 0.4 (1.0-2.7) STACEY PAYAN Nov 27, 2016 17:25
--- NOTE | 2016-11-27 20:27 | General Progress Note ---
Assessment/Plan Assessment/Plan This is a 76-year-old, morbidly obese female, admitted with anasarca and cellulitis of the lower leg. The patient was admitted to the directr observation unit on the monitor with the following medical problems. now transfered to icu as of 11-14-16, co of pruritis 1. Anasarca. She appears to be markedly swollen. She will need diuresis. Place the patient on Lasix 20 mg intravenous for now q.12 hours. Cardiology and Pulmonary on the case. We will follow orders. Check laboratory studies daily. lasix drip was discontinued in am, HD started 2. Chronic hypercapnic respiratory failure. Continue with vent support per Pulmonary. will discuss with pulmonary regarding trach issues 3 anemia. s./p transfusion of PRBC Continue monitoring CBC daily. patient to start procrit per nephrology 4. Pulmonary hypertension. hold Eliquis 2.5 mg twice a day until trach is refitted 5. Chronic kidney disease. We will monitor BUN and creatinine. Gentle diuresis for now. Nephrology has been consulted. further workup per nephrology. avoid nephrotoxic agents HD to start soon 6. DVT prophylaxis. The patient is on Eliquis. The patient is Full 7. nutrition: patient didn't tolerate NGT placment, will discuss with Dr. Rene if G tube placement would be feasible Code. patient is severely volume overloaded will transfer to ICU for closer monitoring., ABG prn, chest xray and daily weights continue duresis, monitor bp , consider midodrin 5 mg tid if pressure drop, am labs discussed at length with icu nursing staff and consultants elevate right arm with pillow while reclining had revesion of trach on 11-23-16 discussed with icu nurse benadryl 25 mg iv q 6 prn itching NPO still except ice chips continue HD per nephrology possible PEG on Tuesday Subjective Date patient seen: Nov 27, 2016 ROS Limited/Unobtainable: Yes Allergies: Coded Allergies: AMOXICILLIN (Verified Allergy, Mild, RASH, 09/30/16) PENICILLINS (Unverified Allergy, Unknown, 09/30/16) Subjective had HD today, didn't tolerate NGT placement for tube feeding Objective Last 24 Hour Vital Signs Date Time Temp Pulse Resp B/P (MAP) Pulse Ox O2 Delivery O2 Flow Rate FiO2 11/27/16 19:07 56 20 30 11/27/16 19:00 60 20 94/47 98 Mechanical Ventilator 30 11/27/16 18:00 66 20 99/42 98 Mechanical Ventilator 30 11/27/16 17:28 70 21 30 11/27/16 17:00 66 16 107/56 99 Mechanical Ventilator 30 11/27/16 16:00 65 11/27/16 16:00 30 11/27/16 16:00 97.5 65 18 93/48 98 Mechanical Ventilator 30 11/27/16 15:00 62 19 113/54 98 Mechanical Ventilator 30 11/27/16 14:57 71 21 30 11/27/16 14:00 62 23 96/43 98 Mechanical Ventilator 30 11/27/16 13:00 60 18 111/63 98 Mechanical Ventilator 30 11/27/16 12:48 58 20 30 11/27/16 12:20 Mechanical Ventilator 30 11/27/16 12:00 30 11/27/16 12:00 62 11/27/16 12:00 98.0 68 21 91/42 99 Mechanical Ventilator 30 11/27/16 11:26 63 20 30 11/27/16 11:00 65 16 97/57 98 Mechanical Ventilator 30 11/27/16 10:00 64 20 93/47 100 Mechanical Ventilator 30 11/27/16 09:15 77 20 30 11/27/16 09:10 Mechanical Ventilator 30 11/27/16 09:00 63 18 110/41 96 Mechanical Ventilator 30 11/27/16 08:00 69 11/27/16 08:00 30 11/27/16 08:00 98.2 86 18 108/79 98 Mechanical Ventilator 30 11/27/16 07:08 76 20 30 11/27/16 07:00 67 20 101/48 100 Mechanical Ventilator 30 11/27/16 06:00 72 23 113/40 100 Mechanical Ventilator 30 11/27/16 05:06 72 20 30 11/27/16 05:00 66 23 95/40 100 Mechanical Ventilator 30 11/27/16 04:00 30 11/27/16 04:00 63 11/27/16 04:00 97.6 62 23 94/39 100 Mechanical Ventilator 30 11/27/16 03:00 60 20 100/42 99 Mechanical Ventilator 30 11/27/16 02:35 65 20 30 11/27/16 02:00 60 23 100/39 99 Mechanical Ventilator 30 11/27/16 01:00 62 22 97/36 99 Mechanical Ventilator 30 11/27/16 00:23 57 20 30 11/27/16 00:00 60 11/27/16 00:00 30 11/27/16 00:00 98.4 58 21 93/35 99 Mechanical Ventilator 30 11/26/16 23:00 64 20 102/38 99 Mechanical Ventilator 30 11/26/16 22:36 61 20 30 11/26/16 22:00 60 23 100/39 99 Mechanical Ventilator 30 11/26/16 21:00 62 20 117/65 100 Mechanical Ventilator 30 11/26/16 20:53 64 20 30 Intake and Output 11/27/16 11/28/16 19:00 07:00 Intake Total 200 ml Output Total 2610 ml Balance -2410 ml IV Total 200 ml Output Urine Total 260 ml Hemodialysis UF 2350 ml Laboratory Tests 11/27/16 04:00: White Blood Count 7.4, Red Blood Count 3.10L, Hemoglobin 8.9L, Hematocrit 28.7L , Mean Corpuscular Volume 92, Mean Corpuscular Hemoglobin 28.6, Mean Corpuscular Hemoglobin Concent 31.0L, Red Cell Distribution Width 15.5H, Platelet Count 186, Mean Platelet Volume 5.8L, Neutrophils (%) (Auto) 66.1, Lymphocytes (%) (Auto) 19.0L, Monocytes (%) (Auto) 9.8, Eosinophils (%) (Auto) 4.6H, Basophils (%) (Auto) 0.5, Sodium Level 144, Potassium Level 3.1L, Chloride Level 102, Carbon Dioxide Level 30, Anion Gap 12, Blood Urea Nitrogen 37H, Creatinine 3.5H, Estimat Glomerular Filtration Rate , Glucose Level 73L, Calcium Level 8.1L, Total Bilirubin 1.0, Aspartate Amino Transf (AST/SGOT) 15, Alanine Aminotransferase (ALT/SGPT) < 6L, Alkaline Phosphatase 60, Pro-B-Type Natriuretic Peptide 94918O, Total Protein 7.1, Albumin 2.2L, Globulin 4.9, Albumin/Globulin Ratio 0.4L Height (Feet): 5 Height (Inches): 5.00 Weight (Pounds): 365 General Appearance: morbidly obese EENT: PERRL/EOMI, pharynx normal Neck: non-tender, supple Cardiovascular: normal rate, regular rhythm, no gallop/murmur, no JVD Respiratory/Chest: decreased breath sounds Abdomen: distended Extremities: swelling Edema: 3+ Arm (L), 3+ Arm (R), 4+ Leg (L), 4+ Leg (R), 4+ Pedal (L), 4+ Pedal ( R), 4+ Generalized Edema: severe edema 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
[2016-11-27] MEDS: ceFAZolin 2gm/50ml Premix 50 ML IV SCH (20:50)
[2016-11-27] MEDS: Dyna-Hex 2% Top Sol 2oz TOPIC SCH (20:51)
[2016-11-28] VITALS (24 sets, daily range): BP systolic 82–110; BP diastolic 32–66
[2016-11-28] MEDS: DiphenhydrAMINE 50mg/ml Inj IVP PRN (00:05)
[2016-11-28 05:08] LABS: BASOPHILS % (AUTO) 0.5 % (0.0-2.0); EOSINOPHILS % (AUTO) 6.3 % (0.0-3.0); LYMPHOCYTES % (AUTO) 21.2 % (20.0-45.0); MEAN CORPUSCULAR HEMOGLOBIN 30.1 PG (27.0-31.0); MEAN CORPUSCULAR HGB CONC 31.9 G/DL (32.0-36.0); MEAN CORPUSCULAR VOLUME 94 FL (80-99); MEAN PLATELET VOLUME 5.6 FL (6.5-10.1); MONOCYTES % (AUTO) 12.5 % (1.0-10.0); NEUTROPHILS % (AUTO) 59.5 % (45.0-75.0); PLATELET COUNT 168 K/UL (150-450); RED BLOOD COUNT 2.83 M/UL (4.20-5.40); RED CELL DISTRIBUTION WIDTH 16.3 % (11.6-14.8); WHITE BLOOD COUNT 5.7 K/UL (4.8-10.8)
[2016-11-28 05:09] LABS: URIC ACID 4.9 MG/DL (2.6-7.2)
[2016-11-28 05:34] LABS: ALANINE AMINOTRANSFERASE < 6 U/L (12-78); ALBUMIN/GLOBULIN RATIO 0.4 (1.0-2.7); ANION GAP 10 mmol/L (5-15); ASPARTATE AMINO TRANSFERASE 15 U/L (15-37); CALCIUM 7.9 MG/DL (8.5-10.1); CARBON DIOXIDE 32 MMOL/L (21-32); CHLORIDE 103 MMOL/L (98-107); CREATININE 3.1 MG/DL (0.55-1.30); CRP QUANT 5.6 mg/dL (0.00-0.90); MAGNESIUM 1.6 MG/DL (1.8-2.4); PHOSPHORUS 2.1 MG/DL (2.5-4.9); POTASSIUM 3.2 MMOL/L (3.5-5.1); SODIUM 145 MMOL/L (136-145); TOTAL PROTEIN 6.8 G/DL (6.4-8.2)
[2016-11-28 06:00] LABS: BILIRUBIN,DIRECT 0.5 MG/DL (0.0-0.3)
[2016-11-28 06:26] LABS: ERYTHROCYTE SEDIMENTATION RATE 71 MM/HR (0-30)
[2016-11-28] MEDS: Revatio 20mg tab ORAL SCH ×3 (08:45→17:57)
[2016-11-28] MEDS: Docusate 100mg cap ORAL SCH ×2 (08:45→17:57)
[2016-11-28] MEDS: Miralax 17gm pkt ORAL SCH (08:47)
[2016-11-28] MEDS: Pantoprazole Inj IVP SCH (08:47)
[2016-11-28] MEDS: Midodrine 10mg tab ORAL SCH ×3 (08:47→17:57)
[2016-11-28] MEDS ORDERED: D5 1/2NS 1000ml IV ONE (08:48)
--- NOTE | 2016-11-28 09:28 | Infectious Diseases Prog Note ---
Assessment/Plan Assessment/Plan A. Cellulitis of legs VDRF s/p revision tracheostomy COPD CKD Anemia Morbid obesity Diastolic CHF P: Continue Ancef Subjective ROS Limited/Unobtainable: Yes Gastrointestinal/Abdominal: Reports: other - feels hungry, wants food Musculoskeletal: Reports: pain Allergies: Coded Allergies: AMOXICILLIN (Verified Allergy, Mild, RASH, 09/30/16) PENICILLINS (Unverified Allergy, Unknown, 09/30/16) Objective Vital Signs Last 24 Hour Vital Signs Date Time Temp Pulse Resp B/P (MAP) Pulse Ox O2 Delivery O2 Flow Rate FiO2 11/28/16 09:00 75 17 100/45 93 Mechanical Ventilator 30 11/28/16 08:00 60 11/28/16 08:00 99.1 65 20 84/37 98 Mechanical Ventilator 30 11/28/16 08:00 73 11/28/16 07:00 63 20 101/57 100 Mechanical Ventilator 30 11/28/16 06:39 75 20 30 11/28/16 06:00 72 20 110/49 100 Mechanical Ventilator 30 11/28/16 05:00 77 21 110/55 100 Mechanical Ventilator 30 11/28/16 04:00 60 11/28/16 04:00 97.8 79 21 100/48 98 Mechanical Ventilator 30 11/28/16 04:00 85 11/28/16 03:04 55 20 30 11/28/16 03:00 61 20 94/32 98 Mechanical Ventilator 30 11/28/16 02:00 60 20 94/37 98 Mechanical Ventilator 30 11/28/16 01:03 54 20 30 11/28/16 01:00 61 20 96/53 95 Mechanical Ventilator 30 11/28/16 00:00 97.9 60 20 98/55 99 Mechanical Ventilator 30 11/27/16 23:15 64 20 30 11/27/16 23:00 63 21 91/37 99 Mechanical Ventilator 30 11/27/16 22:00 62 19 112/83 100 Mechanical Ventilator 30 11/27/16 21:28 60 21 30 11/27/16 21:00 59 20 87/32 100 Mechanical Ventilator 30 11/27/16 20:00 97.5 61 20 119/42 99 Mechanical Ventilator 30 11/27/16 20:00 59 11/27/16 20:00 60 11/27/16 19:07 56 20 30 11/27/16 19:00 60 20 94/47 98 Mechanical Ventilator 30 11/27/16 18:00 66 20 99/42 98 Mechanical Ventilator 30 11/27/16 17:28 70 21 30 11/27/16 17:00 66 16 107/56 99 Mechanical Ventilator 30 11/27/16 16:00 65 11/27/16 16:00 30 11/27/16 16:00 97.5 65 18 93/48 98 Mechanical Ventilator 30 11/27/16 15:00 62 19 113/54 98 Mechanical Ventilator 30 11/27/16 14:57 71 21 30 11/27/16 14:00 62 23 96/43 98 Mechanical Ventilator 30 11/27/16 13:00 60 18 111/63 98 Mechanical Ventilator 30 11/27/16 12:48 58 20 30 11/27/16 12:20 Mechanical Ventilator 30 11/27/16 12:00 30 11/27/16 12:00 62 11/27/16 12:00 98.0 68 21 91/42 99 Mechanical Ventilator 30 11/27/16 11:26 63 20 30 11/27/16 11:00 65 16 97/57 98 Mechanical Ventilator 30 11/27/16 10:00 64 20 93/47 100 Mechanical Ventilator 30 Height (Feet): 5 Height (Inches): 5.00 Weight (Pounds): 356 General Appearance: no acute distress HEENT: status post trach Respiratory/Chest: decreased breath sounds, other - on ventilator Cardiovascular: normal rate, other - RIJ line Abdomen: soft, non tender Extremities: other - edema of legs Skin: other - decreased eryjthema of shins Neurologic/Psychiatric: alert, responsive Laboratory Tests Test 11/28/16 03:30 White Blood Count 5.7 K/UL (4.8-10.8) Red Blood Count 2.83 M/UL (4.20-5.40) L Hemoglobin 8.5 G/DL (12.0-16.0) L Hematocrit 26.7 % (37.0-47.0) L Mean Corpuscular Volume 94 FL (80-99) Mean Corpuscular Hemoglobin 30.1 PG (27.0-31.0) Mean Corpuscular Hemoglobin Concent 31.9 G/DL (32.0-36.0) L Red Cell Distribution Width 16.3 % (11.6-14.8) H Platelet Count 168 K/UL (150-450) Mean Platelet Volume 5.6 FL (6.5-10.1) L Neutrophils (%) (Auto) 59.5 % (45.0-75.0) Lymphocytes (%) (Auto) 21.2 % (20.0-45.0) Monocytes (%) (Auto) 12.5 % (1.0-10.0) H Eosinophils (%) (Auto) 6.3 % (0.0-3.0) H Basophils (%) (Auto) 0.5 % (0.0-2.0) Erythrocyte Sedimentation Rate 71 MM/HR (0-30) H Sodium Level 145 MMOL/L (136-145) Potassium Level 3.2 MMOL/L (3.5-5.1) L Chloride Level 103 MMOL/L (98-107) Carbon Dioxide Level 32 MMOL/L (21-32) Anion Gap 10 mmol/L (5-15) Blood Urea Nitrogen 26 mg/dL (7-18) H Creatinine 3.1 MG/DL (0.55-1.30) H Estimat Glomerular Filtration Rate mL/min (>60) Glucose Level 72 MG/DL (74-106) L Uric Acid 4.9 MG/DL (2.6-7.2) Calcium Level 7.9 MG/DL (8.5-10.1) L Phosphorus Level 2.1 MG/DL (2.5-4.9) L Magnesium Level 1.6 MG/DL (1.8-2.4) L Total Bilirubin 1.3 MG/DL (0.2-1.0) H Direct Bilirubin 0.5 MG/DL (0.0-0.3) H Gamma Glutamyl Transpeptidase 21 U/L (5-85) Aspartate Amino Transf (AST/SGOT) 15 U/L (15-37) Alanine Aminotransferase (ALT/SGPT) < 6 U/L (12-78) L Alkaline Phosphatase 57 U/L (46-116) Total Creatine Kinase 58 U/L (26-308) C-Reactive Protein, Quantitative 5.6 mg/dL (0.00-0.90) H Pro-B-Type Natriuretic Peptide 32224 pg/mL (0-125) H Total Protein 6.8 G/DL (6.4-8.2) Albumin 2.1 G/DL (3.4-5.0) L Globulin 4.7 g/dL Albumin/Globulin Ratio 0.4 (1.0-2.7) L Current Medications Medications (Trade) Dose Ordered Sig/Kalyn Route PRN Reason Start Time Stop Time Status Last Admin Dose Admin Acetaminophen (Tylenol) 650 mg Q4H PRN ORAL Mild Pain/Temp > 100.5 11/14/16 08:00 12/12/16 07:59 11/22/16 20:22 Allopurinol (Allopurinol) 300 mg DAILY ORAL 11/16/16 10:00 12/16/16 09:59 11/28/16 08:47 Cefazolin Sodium 50 ml @ 100 mls/hr Q24H IV 11/22/16 21:00 11/29/16 20:59 11/27/16 20:50 Chlorhexidine Gluconate (Marni-Hex 2%) 1 applic Q24H TOPIC 11/27/16 20:00 12/27/16 19:59 11/27/16 20:51 Diphenhydramine HCl (Benadryl) 25 mg Q6H PRN IVP Itching 11/19/16 20:15 12/19/16 20:14 11/28/16 00:05 Docusate Sodium (Colace) 100 mg TWICE A DAY ORAL 11/14/16 09:00 12/12/16 08:59 11/28/16 08:45 Epoetin Santos (Procrit (for non ESRD use)) 10,000 units TUE-TUE-TUE SUBQ 11/17/16 21:00 12/17/16 20:59 11/26/16 21:04 Folic Acid (Folate) 1 mg DAILY ORAL 11/14/16 09:00 12/12/16 08:59 11/28/16 08:47 Gabapentin (Neurontin) 600 mg BID ORAL 11/14/16 09:00 12/14/16 08:59 11/28/16 08:47 Midodrine (Pro-Amatine) 10 mg THREE TIMES A DAY ORAL 11/21/16 13:00 12/21/16 12:59 11/28/16 08:47 Pantoprazole (Protonix) 40 mg DAILY IVP 11/14/16 09:00 12/12/16 08:59 11/28/16 08:47 Polyethylene Glycol (Miralax) 17 gm DAILY ORAL 11/14/16 09:00 12/12/16 08:59 11/28/16 08:47 Pravastatin Sodium (Pravachol) 20 mg BEDTIME ORAL 11/14/16 21:00 12/12/16 20:59 11/27/16 20:51 Sildenafil Citrate (Revatio) 20 mg THREE TIMES A DAY ORAL 11/14/16 09:00 12/12/16 08:59 11/28/16 08:45 CARY ESTES Nov 28, 2016 09:28
--- NOTE | 2016-11-28 11:04 | Pulmonolgy Critical Care Note ---
Critical Care - Asmt/Plan Problems: (1) Acute and chronic respiratory failure (2) Anasarca (3) ATN (acute tubular necrosis) (4) Atrial fibrillation (5) Morbid obesity (6) Pickwickian syndrome Assessment/Plan: refusing NG gtube, doens't want any Gtube. Respiratory: monitor respiratory rate, adjust FIO2, CXR Cardiac: continue to monitor HR/BP Renal: F/U I&O, keep IV fluid Infectious Disease: check cultures Gastrointestinal: continue feedings/current rate Endocrine: monitor blood sugar, check HgA1C Hematologic: monitor H/H Affect: PRN ativan Prophylaxis: Protonix, Heparin Notes Reviewed: director of sustainability, cardio, renal 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: nurses, consultants, case management assistantcytology laboratory manager - Objective Last 24 Hour Vital Signs Date Time Temp Pulse Resp B/P (MAP) Pulse Ox O2 Delivery O2 Flow Rate FiO2 11/28/16 10:00 71 20 94/45 97 Mechanical Ventilator 40 11/28/16 09:28 82 20 40 11/28/16 09:00 75 17 100/45 93 Mechanical Ventilator 30 11/28/16 08:00 60 11/28/16 08:00 99.1 65 20 84/37 98 Mechanical Ventilator 30 11/28/16 08:00 73 11/28/16 07:00 63 20 101/57 100 Mechanical Ventilator 30 11/28/16 06:39 75 20 30 11/28/16 06:00 72 20 110/49 100 Mechanical Ventilator 30 11/28/16 05:00 77 21 110/55 100 Mechanical Ventilator 30 11/28/16 04:00 60 11/28/16 04:00 97.8 79 21 100/48 98 Mechanical Ventilator 30 11/28/16 04:00 85 11/28/16 03:04 55 20 30 11/28/16 03:00 61 20 94/32 98 Mechanical Ventilator 30 11/28/16 02:00 60 20 94/37 98 Mechanical Ventilator 30 11/28/16 01:03 54 20 30 11/28/16 01:00 61 20 96/53 95 Mechanical Ventilator 30 11/28/16 00:00 97.9 60 20 98/55 99 Mechanical Ventilator 30 11/27/16 23:15 64 20 30 11/27/16 23:00 63 21 91/37 99 Mechanical Ventilator 30 11/27/16 22:00 62 19 112/83 100 Mechanical Ventilator 30 11/27/16 21:28 60 21 30 11/27/16 21:00 59 20 87/32 100 Mechanical Ventilator 30 11/27/16 20:00 97.5 61 20 119/42 99 Mechanical Ventilator 30 11/27/16 20:00 59 11/27/16 20:00 60 11/27/16 19:07 56 20 30 11/27/16 19:00 60 20 94/47 98 Mechanical Ventilator 30 11/27/16 18:00 66 20 99/42 98 Mechanical Ventilator 30 11/27/16 17:28 70 21 30 11/27/16 17:00 66 16 107/56 99 Mechanical Ventilator 30 11/27/16 16:00 65 11/27/16 16:00 30 11/27/16 16:00 97.5 65 18 93/48 98 Mechanical Ventilator 30 11/27/16 15:00 62 19 113/54 98 Mechanical Ventilator 30 11/27/16 14:57 71 21 30 11/27/16 14:00 62 23 96/43 98 Mechanical Ventilator 30 11/27/16 13:00 60 18 111/63 98 Mechanical Ventilator 30 11/27/16 12:48 58 20 30 11/27/16 12:20 Mechanical Ventilator 30 11/27/16 12:00 30 11/27/16 12:00 62 11/27/16 12:00 98.0 68 21 91/42 99 Mechanical Ventilator 30 11/27/16 11:26 63 20 30 Status: awake Condition: critical HEENT: atraumatic Lungs: clear Heart: HR/BP stable, HR/BP unstable, regular Abdomen: soft, non-tender, active bowel sounds, feeding tube Extremities: no C/C/E Decubiti: location, stage Critical Care - Subjective ROS Limited/Unobtainable: No ICU Day: 14 Condition: critical EKG Rhythm: Sinus Rhythm FI02: 40 Vent Support Breath Rate: 20 Vent Support Mode: AC Vent Tidal Volume: 600 Sputum Amount: Moderate PEEP: 5.0 PIP: 57 I&O: Intake and Output 11/28/16 11/29/16 19:00 07:00 Output Total 40 ml Balance -40 ml Output Urine Total 40 ml CXR: no change ET-Tube: 6.0 ET Position: 15 Labs: Laboratory Tests Test 11/28/16 03:30 White Blood Count 5.7 K/UL (4.8-10.8) Red Blood Count 2.83 M/UL (4.20-5.40) L Hemoglobin 8.5 G/DL (12.0-16.0) L Hematocrit 26.7 % (37.0-47.0) L Mean Corpuscular Volume 94 FL (80-99) Mean Corpuscular Hemoglobin 30.1 PG (27.0-31.0) Mean Corpuscular Hemoglobin Concent 31.9 G/DL (32.0-36.0) L Red Cell Distribution Width 16.3 % (11.6-14.8) H Platelet Count 168 K/UL (150-450) Mean Platelet Volume 5.6 FL (6.5-10.1) L Neutrophils (%) (Auto) 59.5 % (45.0-75.0) Lymphocytes (%) (Auto) 21.2 % (20.0-45.0) Monocytes (%) (Auto) 12.5 % (1.0-10.0) H Eosinophils (%) (Auto) 6.3 % (0.0-3.0) H Basophils (%) (Auto) 0.5 % (0.0-2.0) Erythrocyte Sedimentation Rate 71 MM/HR (0-30) H Sodium Level 145 MMOL/L (136-145) Potassium Level 3.2 MMOL/L (3.5-5.1) L Chloride Level 103 MMOL/L (98-107) Carbon Dioxide Level 32 MMOL/L (21-32) Anion Gap 10 mmol/L (5-15) Blood Urea Nitrogen 26 mg/dL (7-18) H Creatinine 3.1 MG/DL (0.55-1.30) H Estimat Glomerular Filtration Rate mL/min (>60) Glucose Level 72 MG/DL (74-106) L Uric Acid 4.9 MG/DL (2.6-7.2) Calcium Level 7.9 MG/DL (8.5-10.1) L Phosphorus Level 2.1 MG/DL (2.5-4.9) L Magnesium Level 1.6 MG/DL (1.8-2.4) L Total Bilirubin 1.3 MG/DL (0.2-1.0) H Direct Bilirubin 0.5 MG/DL (0.0-0.3) H Gamma Glutamyl Transpeptidase 21 U/L (5-85) Aspartate Amino Transf (AST/SGOT) 15 U/L (15-37) Alanine Aminotransferase (ALT/SGPT) < 6 U/L (12-78) L Alkaline Phosphatase 57 U/L (46-116) Total Creatine Kinase 58 U/L (26-308) C-Reactive Protein, Quantitative 5.6 mg/dL (0.00-0.90) H Pro-B-Type Natriuretic Peptide 75610 pg/mL (0-125) H Total Protein 6.8 G/DL (6.4-8.2) Albumin 2.1 G/DL (3.4-5.0) L Globulin 4.7 g/dL Albumin/Globulin Ratio 0.4 (1.0-2.7) L ARASH MIRANDA Nov 28, 2016 11:04
--- NOTE | 2016-11-28 11:11 | General Progress Note ---
Assessment/Plan Status: stable Assessment/Plan Cellulitis BLE and R arm- in the setting of chronic leg edema- r/o DVT Anasarca/ bilateral leg lymphedema CKD- and acute renal failure - Acute respiratory failure s/p Trach Obese COPD , CHF, Diastolic MINA UTI Anemia GI Bleed, GI bleeding At Fib Pulm HTN h/o Low B12 plan: 4th HD and UF in am K supplement on EPOGEN 24 H urine collection in process: CrCl 6 Monitor renal parameters- optimize cardiac and pulm status avoid nephrotoxics- pulmonary support- transfuse as needed ? DC planning Subjective ROS Limited/Unobtainable: No Allergies: Coded Allergies: AMOXICILLIN (Verified Allergy, Mild, RASH, 09/30/16) PENICILLINS (Unverified Allergy, Unknown, 09/30/16) Objective Last 24 Hour Vital Signs Date Time Temp Pulse Resp B/P (MAP) Pulse Ox O2 Delivery O2 Flow Rate FiO2 11/28/16 11:01 69 20 40 11/28/16 10:00 71 20 94/45 97 Mechanical Ventilator 40 11/28/16 09:28 82 20 40 11/28/16 09:00 75 17 100/45 93 Mechanical Ventilator 30 11/28/16 08:00 60 11/28/16 08:00 99.1 65 20 84/37 98 Mechanical Ventilator 30 11/28/16 08:00 73 11/28/16 07:00 63 20 101/57 100 Mechanical Ventilator 30 11/28/16 06:39 75 20 30 11/28/16 06:00 72 20 110/49 100 Mechanical Ventilator 30 11/28/16 05:00 77 21 110/55 100 Mechanical Ventilator 30 11/28/16 04:00 60 11/28/16 04:00 97.8 79 21 100/48 98 Mechanical Ventilator 30 11/28/16 04:00 85 11/28/16 03:04 55 20 30 11/28/16 03:00 61 20 94/32 98 Mechanical Ventilator 30 11/28/16 02:00 60 20 94/37 98 Mechanical Ventilator 30 11/28/16 01:03 54 20 30 11/28/16 01:00 61 20 96/53 95 Mechanical Ventilator 30 11/28/16 00:00 97.9 60 20 98/55 99 Mechanical Ventilator 30 11/27/16 23:15 64 20 30 11/27/16 23:00 63 21 91/37 99 Mechanical Ventilator 30 11/27/16 22:00 62 19 112/83 100 Mechanical Ventilator 30 11/27/16 21:28 60 21 30 11/27/16 21:00 59 20 87/32 100 Mechanical Ventilator 30 11/27/16 20:00 97.5 61 20 119/42 99 Mechanical Ventilator 30 11/27/16 20:00 59 11/27/16 20:00 60 11/27/16 19:07 56 20 30 11/27/16 19:00 60 20 94/47 98 Mechanical Ventilator 30 11/27/16 18:00 66 20 99/42 98 Mechanical Ventilator 30 11/27/16 17:28 70 21 30 11/27/16 17:00 66 16 107/56 99 Mechanical Ventilator 30 11/27/16 16:00 65 11/27/16 16:00 30 11/27/16 16:00 97.5 65 18 93/48 98 Mechanical Ventilator 30 11/27/16 15:00 62 19 113/54 98 Mechanical Ventilator 30 11/27/16 14:57 71 21 30 11/27/16 14:00 62 23 96/43 98 Mechanical Ventilator 30 11/27/16 13:00 60 18 111/63 98 Mechanical Ventilator 30 11/27/16 12:48 58 20 30 11/27/16 12:20 Mechanical Ventilator 30 11/27/16 12:00 30 11/27/16 12:00 62 11/27/16 12:00 98.0 68 21 91/42 99 Mechanical Ventilator 30 11/27/16 11:26 63 20 30 Intake and Output 11/28/16 11/29/16 19:00 07:00 Output Total 50 ml Balance -50 ml Output Urine Total 50 ml Laboratory Tests 11/28/16 03:30: White Blood Count 5.7, Red Blood Count 2.83L, Hemoglobin 8.5L, Hematocrit 26.7L , Mean Corpuscular Volume 94, Mean Corpuscular Hemoglobin 30.1, Mean Corpuscular Hemoglobin Concent 31.9L, Red Cell Distribution Width 16.3H, Platelet Count 168, Mean Platelet Volume 5.6L, Neutrophils (%) (Auto) 59.5, Lymphocytes (%) (Auto) 21.2, Monocytes (%) (Auto) 12.5H, Eosinophils (%) (Auto) 6.3H, Basophils (%) (Auto) 0.5, Erythrocyte Sedimentation Rate 71H, Sodium Level 145, Potassium Level 3.2L, Chloride Level 103, Carbon Dioxide Level 32, Anion Gap 10, Blood Urea Nitrogen 26H, Creatinine 3.1H, Estimat Glomerular Filtration Rate , Glucose Level 72L, Uric Acid 4.9, Calcium Level 7.9L, Phosphorus Level 2.1L, Magnesium Level 1.6L, Total Bilirubin 1.3H, Direct Bilirubin 0.5H, Gamma Glutamyl Transpeptidase 21, Aspartate Amino Transf (AST/ SGOT) 15, Alanine Aminotransferase (ALT/SGPT) < 6L, Alkaline Phosphatase 57, Total Creatine Kinase 58, C-Reactive Protein, Quantitative 5.6H, Pro-B-Type Natriuretic Peptide 93214F, Total Protein 6.8, Albumin 2.1L, Globulin 4.7, Albumin/Globulin Ratio 0.4L Height (Feet): 5 Height (Inches): 5.00 Weight (Pounds): 356 General Appearance: no apparent distress Cardiovascular: normal rate Respiratory/Chest: decreased breath sounds Abdomen: soft Objective much less edematous COURTNEY LOPEZ Nov 28, 2016 11:11
[2016-11-28] MEDS ORDERED: Potassium Phosphate 20 MM in NS 275 ML IV ONE (11:30)
--- NOTE | 2016-11-28 16:28 | Cardiology Progress Note ---
Assessment/Plan Problem List: (1) Chronic respiratory failure (2) Anasarca (3) Anemia (4) Cellulitis (5) Pickwickian syndrome (6) MINA (obstructive sleep apnea) (7) Atrial fibrillation (8) Morbid obesity Status: stable, progressing Status Narrative Pt in AF w/ controlled ventricular rates, off meds. Not on anticoagulation. Anasarca/ RF - Undergoing regular HD for fluid removal. Remains w/ significant vol overload BP has improved. Assessment/Plan Continue fluid removal w/ HD, as tolerated by BP Agree w/ proamitine Consider anticoagulation for AF CVA risk prevention if no contraindications. Ancef for LE cellulitis as per ID. Subjective Subjective Pt awake, on vent. Events noted. Objective Last 24 Hour Vital Signs Date Time Temp Pulse Resp B/P (MAP) Pulse Ox O2 Delivery O2 Flow Rate FiO2 11/28/16 16:00 40 11/28/16 16:00 98.9 53 18 99/49 97 Mechanical Ventilator 40 11/28/16 15:00 64 18 100/56 97 Mechanical Ventilator 40 11/28/16 14:56 69 20 40 11/28/16 14:00 74 20 103/48 99 Mechanical Ventilator 40 11/28/16 13:26 71 20 40 11/28/16 13:00 65 20 84/54 98 Mechanical Ventilator 40 11/28/16 12:00 60 11/28/16 12:00 98.9 61 19 93/56 99 Mechanical Ventilator 40 11/28/16 12:00 40 11/28/16 11:01 69 20 40 11/28/16 11:00 63 20 83/49 97 Mechanical Ventilator 40 11/28/16 10:00 71 20 94/45 97 Mechanical Ventilator 40 11/28/16 09:28 82 20 40 11/28/16 09:00 75 17 100/45 93 Mechanical Ventilator 30 11/28/16 08:00 60 11/28/16 08:00 99.1 65 20 84/37 98 Mechanical Ventilator 30 11/28/16 08:00 73 11/28/16 07:00 63 20 101/57 100 Mechanical Ventilator 30 11/28/16 06:39 75 20 30 11/28/16 06:00 72 20 110/49 100 Mechanical Ventilator 30 11/28/16 05:00 77 21 110/55 100 Mechanical Ventilator 30 11/28/16 04:00 60 11/28/16 04:00 97.8 79 21 100/48 98 Mechanical Ventilator 30 11/28/16 04:00 85 11/28/16 03:04 55 20 30 11/28/16 03:00 61 20 94/32 98 Mechanical Ventilator 30 11/28/16 02:00 60 20 94/37 98 Mechanical Ventilator 30 11/28/16 01:03 54 20 30 11/28/16 01:00 61 20 96/53 95 Mechanical Ventilator 30 11/28/16 00:00 97.9 60 20 98/55 99 Mechanical Ventilator 30 11/27/16 23:15 64 20 30 11/27/16 23:00 63 21 91/37 99 Mechanical Ventilator 30 11/27/16 22:00 62 19 112/83 100 Mechanical Ventilator 30 11/27/16 21:28 60 21 30 11/27/16 21:00 59 20 87/32 100 Mechanical Ventilator 30 11/27/16 20:00 97.5 61 20 119/42 99 Mechanical Ventilator 30 11/27/16 20:00 59 11/27/16 20:00 60 11/27/16 19:07 56 20 30 11/27/16 19:00 60 20 94/47 98 Mechanical Ventilator 30 11/27/16 18:00 66 20 99/42 98 Mechanical Ventilator 30 11/27/16 17:28 70 21 30 11/27/16 17:00 66 16 107/56 99 Mechanical Ventilator 30 General Appearance: obese, on vent EENT: PERRL/EOMI, other - et tube in place Neck: supple Rhythm: Afib Cardiovascular: normal rate, no gallop/murmur, irregularly irregular Respiratory/Chest: other - dec BS bilat Abdomen: non tender, soft, other - obese. + pitting edema of abd wall Extremities: severe edema - 3+ edema of distal extremities bilat. Bilat LE erythema Intake and Output 11/28/16 11/29/16 19:00 07:00 Intake Total 293.888 ml Output Total 120 ml Balance 173.888 ml IV Total 293.888 ml Output Urine Total 120 ml Laboratory Tests Test 11/28/16 03:30 White Blood Count 5.7 K/UL (4.8-10.8) Red Blood Count 2.83 M/UL (4.20-5.40) L Hemoglobin 8.5 G/DL (12.0-16.0) L Hematocrit 26.7 % (37.0-47.0) L Mean Corpuscular Volume 94 FL (80-99) Mean Corpuscular Hemoglobin 30.1 PG (27.0-31.0) Mean Corpuscular Hemoglobin Concent 31.9 G/DL (32.0-36.0) L Red Cell Distribution Width 16.3 % (11.6-14.8) H Platelet Count 168 K/UL (150-450) Mean Platelet Volume 5.6 FL (6.5-10.1) L Neutrophils (%) (Auto) 59.5 % (45.0-75.0) Lymphocytes (%) (Auto) 21.2 % (20.0-45.0) Monocytes (%) (Auto) 12.5 % (1.0-10.0) H Eosinophils (%) (Auto) 6.3 % (0.0-3.0) H Basophils (%) (Auto) 0.5 % (0.0-2.0) Erythrocyte Sedimentation Rate 71 MM/HR (0-30) H Sodium Level 145 MMOL/L (136-145) Potassium Level 3.2 MMOL/L (3.5-5.1) L Chloride Level 103 MMOL/L (98-107) Carbon Dioxide Level 32 MMOL/L (21-32) Anion Gap 10 mmol/L (5-15) Blood Urea Nitrogen 26 mg/dL (7-18) H Creatinine 3.1 MG/DL (0.55-1.30) H Estimat Glomerular Filtration Rate mL/min (>60) Glucose Level 72 MG/DL (74-106) L Uric Acid 4.9 MG/DL (2.6-7.2) Calcium Level 7.9 MG/DL (8.5-10.1) L Phosphorus Level 2.1 MG/DL (2.5-4.9) L Magnesium Level 1.6 MG/DL (1.8-2.4) L Total Bilirubin 1.3 MG/DL (0.2-1.0) H Direct Bilirubin 0.5 MG/DL (0.0-0.3) H Gamma Glutamyl Transpeptidase 21 U/L (5-85) Aspartate Amino Transf (AST/SGOT) 15 U/L (15-37) Alanine Aminotransferase (ALT/SGPT) < 6 U/L (12-78) L Alkaline Phosphatase 57 U/L (46-116) Total Creatine Kinase 58 U/L (26-308) C-Reactive Protein, Quantitative 5.6 mg/dL (0.00-0.90) H Pro-B-Type Natriuretic Peptide 85426 pg/mL (0-125) H Total Protein 6.8 G/DL (6.4-8.2) Albumin 2.1 G/DL (3.4-5.0) L Globulin 4.7 g/dL Albumin/Globulin Ratio 0.4 (1.0-2.7) L STACEY WATERS Nov 28, 2016 16:28
--- NOTE | 2016-11-28 17:06 | Cardiology Report ---
APPROVED REPORT EXAM: Two-dimensional and M-mode echocardiogram with Doppler and color Doppler. INDICATION Atrial flutter M-Mode DIMENSIONS IVSd0.8 (0.7-1.1cm)Left Atrium (MM)5.9 (1.6-4.0cm) LVDd4.8 (3.5-5.6cm)Aortic Root3.2 (2.0-3.7cm) PWd1.0 (0.7-1.1cm)Aortic Cusp Exc.1.4 (1.5-2.0cm) LVDs2.6 (2.5-4.0cm) PWs1.3 cm Technically limited and difficult study due to poor acoustical windows. Patient on vent. Normal left ventricular chamber size, systolic function and wall motion. Left ventricular ejection fraction estimated to be 60-65%. No evidence of left ventricular hypertrophy. No evidence of pericardial or pleural effusion. Moderate left atrial enlargement by 2D. Severe right atrial enlargement by 2D. D-shape of left ventricle, indicating right ventricular volume overload. Focal aortic valve sclerosis with adequate cusp excursion. Thickened mitral valve leaflets with normal excursion. Mild mitral annulus and aortic root calcification. Pulmonic valve not well visualized. Normal tricuspid valve structure. IVC is not obtainable. A color flow and spectral Doppler study was performed and revealed: No aortic regurgitation. Severe mitral regurgitation. Severe tricuspid regurgitation. Tricuspid systolic velocities suggests peak right ventricular systolic pressure of 39 mmHg Consistent with mild pulmonary hypertension.
[2016-11-28] MEDS ORDERED: NS 275ml ONE (17:13)
[2016-11-28] MEDS ORDERED: Tubing IV Secondary IV ONE (17:13)
[2016-11-28] MEDS: Dyna-Hex 2% Top Sol 2oz TOPIC SCH (20:24)
[2016-11-28] MEDS: ceFAZolin 2gm/50ml Premix 50 ML IV SCH (20:35)
--- NOTE | 2016-11-28 21:41 | General Progress Note ---
Assessment/Plan Assessment/Plan This is a 76-year-old, morbidly obese female, admitted with anasarca and cellulitis of the lower leg. The patient was admitted to the directr observation unit on the monitor with the following medical problems. now transfered to icu as of 11-14-16, co of pruritis 1. Anasarca. She appears to be markedly swollen. She will need diuresis. Place the patient on Lasix 20 mg intravenous for now q.12 hours. Cardiology and Pulmonary on the case. We will follow orders. Check laboratory studies daily. lasix drip was discontinued in am, HD started 2. Chronic hypercapnic respiratory failure. Continue with vent support per Pulmonary. will discuss with pulmonary regarding trach issues 3 anemia. s./p transfusion of PRBC Continue monitoring CBC daily. patient to start procrit per nephrology 4. Pulmonary hypertension. hold Eliquis 2.5 mg twice a day until trach is refitted 5. Chronic kidney disease. We will monitor BUN and creatinine. Gentle diuresis for now. Nephrology has been consulted. further workup per nephrology. avoid nephrotoxic agents HD to start soon 6. DVT prophylaxis. The patient is on Eliquis. The patient is Full 7. nutrition: patient didn't tolerate NGT placment, patient is now agreeable to PEG placement, all questions were answered including risks and benefits, patient agrees to proceed Code. patient is severely volume overloaded will transfer to ICU for closer monitoring., ABG prn, chest xray and daily weights continue duresis, monitor bp , consider midodrin 5 mg tid if pressure drop, am labs discussed at length with icu nursing staff and consultants elevate right arm with pillow while reclining had revesion of trach on 11-23-16 discussed with icu nurse benadryl 25 mg iv q 6 prn itching NPO still except ice chips continue HD per nephrology possible PEG on Tuesday Subjective Date patient seen: Nov 28, 2016 ROS Limited/Unobtainable: Yes Allergies: Coded Allergies: AMOXICILLIN (Verified Allergy, Mild, RASH, 09/30/16) PENICILLINS (Unverified Allergy, Unknown, 09/30/16) Subjective had HD today, didn't tolerate NGT placement for tube feeding Objective Last 24 Hour Vital Signs Date Time Temp Pulse Resp B/P (MAP) Pulse Ox O2 Delivery O2 Flow Rate FiO2 10/22/17 21:00 64 18 100/49 96 Mechanical Ventilator 40 11/28/16 20:52 63 20 40 11/28/16 20:00 98.9 59 19 89/37 99 Mechanical Ventilator 40 11/28/16 20:00 40 11/28/16 20:00 56 11/28/16 19:00 63 18 82/37 96 Mechanical Ventilator 40 11/28/16 18:49 63 20 40 11/28/16 18:00 71 18 108/66 100 Mechanical Ventilator 40 11/28/16 17:00 67 18 109/65 99 Mechanical Ventilator 40 11/28/16 16:39 67 20 40 11/28/16 16:00 40 11/28/16 16:00 64 11/28/16 16:00 98.9 53 18 99/49 97 Mechanical Ventilator 40 11/28/16 15:00 64 18 100/56 97 Mechanical Ventilator 40 11/28/16 14:56 69 20 40 11/28/16 14:00 74 20 103/48 99 Mechanical Ventilator 40 11/28/16 13:26 71 20 40 11/28/16 13:00 65 20 84/54 98 Mechanical Ventilator 40 11/28/16 12:00 60 11/28/16 12:00 98.9 61 19 93/56 99 Mechanical Ventilator 40 11/28/16 12:00 40 11/28/16 11:01 69 20 40 11/28/16 11:00 63 20 83/49 97 Mechanical Ventilator 40 11/28/16 10:00 71 20 94/45 97 Mechanical Ventilator 40 11/28/16 09:28 82 20 40 11/28/16 09:00 75 17 100/45 93 Mechanical Ventilator 30 11/28/16 08:00 60 11/28/16 08:00 99.1 65 20 84/37 98 Mechanical Ventilator 30 11/28/16 08:00 73 11/28/16 07:00 63 20 101/57 100 Mechanical Ventilator 30 11/28/16 06:39 75 20 30 11/28/16 06:00 72 20 110/49 100 Mechanical Ventilator 30 11/28/16 05:00 77 21 110/55 100 Mechanical Ventilator 30 11/28/16 04:00 60 11/28/16 04:00 97.8 79 21 100/48 98 Mechanical Ventilator 30 11/28/16 04:00 85 11/28/16 03:04 55 20 30 11/28/16 03:00 61 20 94/32 98 Mechanical Ventilator 30 11/28/16 02:00 60 20 94/37 98 Mechanical Ventilator 30 11/28/16 01:03 54 20 30 11/28/16 01:00 61 20 96/53 95 Mechanical Ventilator 30 11/28/16 00:00 97.9 60 20 98/55 99 Mechanical Ventilator 30 11/27/16 23:15 64 20 30 11/27/16 23:00 63 21 91/37 99 Mechanical Ventilator 30 11/27/16 22:00 62 19 112/83 100 Mechanical Ventilator 30 Intake and Output 11/28/16 11/29/16 19:00 07:00 Intake Total 387.776 ml 50 ml Output Total 210 ml 35 ml Balance 177.776 ml 15 ml IV Total 387.776 ml 50 ml Output Urine Total 210 ml 35 ml Laboratory Tests 11/28/16 03:30: White Blood Count 5.7, Red Blood Count 2.83L, Hemoglobin 8.5L, Hematocrit 26.7L , Mean Corpuscular Volume 94, Mean Corpuscular Hemoglobin 30.1, Mean Corpuscular Hemoglobin Concent 31.9L, Red Cell Distribution Width 16.3H, Platelet Count 168, Mean Platelet Volume 5.6L, Neutrophils (%) (Auto) 59.5, Lymphocytes (%) (Auto) 21.2, Monocytes (%) (Auto) 12.5H, Eosinophils (%) (Auto) 6.3H, Basophils (%) (Auto) 0.5, Erythrocyte Sedimentation Rate 71H, Sodium Level 145, Potassium Level 3.2L, Chloride Level 103, Carbon Dioxide Level 32, Anion Gap 10, Blood Urea Nitrogen 26H, Creatinine 3.1H, Estimat Glomerular Filtration Rate , Glucose Level 72L, Uric Acid 4.9, Calcium Level 7.9L, Phosphorus Level 2.1L, Magnesium Level 1.6L, Total Bilirubin 1.3H, Direct Bilirubin 0.5H, Gamma Glutamyl Transpeptidase 21, Aspartate Amino Transf (AST/ SGOT) 15, Alanine Aminotransferase (ALT/SGPT) < 6L, Alkaline Phosphatase 57, Total Creatine Kinase 58, C-Reactive Protein, Quantitative 5.6H, Pro-B-Type Natriuretic Peptide 87420Z, Total Protein 6.8, Albumin 2.1L, Globulin 4.7, Albumin/Globulin Ratio 0.4L Height (Feet): 5 Height (Inches): 5.00 Weight (Pounds): 356 General Appearance: morbidly obese EENT: PERRL/EOMI, pharynx normal Neck: non-tender, supple Cardiovascular: normal rate, regular rhythm, no gallop/murmur, no JVD Respiratory/Chest: decreased breath sounds Abdomen: distended Extremities: swelling Edema: 3+ Arm (L), 3+ Arm (R), 4+ Leg (L), 4+ Leg (R), 4+ Pedal (L), 4+ Pedal ( R), 4+ Generalized Edema: severe edema 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
--- NOTE | 2016-11-28 22:04 | General Progress Note ---
Assessment/Plan Assessment/Plan ASSESSMENT/RECS: # Coagulopathy 2/2 sepsis --> INR improving #. Anemia secondary to chronic disease. Continue to closely monitor. Work up reviewed --> s/p transfusion. watch counts, transfuse if hgb is below 8 #. Anemia of kidney disease. Nephrology service following #. Chronic ventilator dependent #. Permanent atrial fibrillation. #. Cellulitis and chronic lymphedema of the bilateral lower extremities. Continue to monitor. On abx per id service #. Congestive heart failure. Subjective ROS Limited/Unobtainable: Yes Allergies: Coded Allergies: AMOXICILLIN (Verified Allergy, Mild, RASH, 09/30/16) PENICILLINS (Unverified Allergy, Unknown, 09/30/16) Subjective NAD Objective Last 24 Hour Vital Signs Date Time Temp Pulse Resp B/P (MAP) Pulse Ox O2 Delivery O2 Flow Rate FiO2 11/28/16 21:00 64 18 100/49 96 Mechanical Ventilator 40 11/28/16 20:52 63 20 40 11/28/16 20:00 98.9 59 19 89/37 99 Mechanical Ventilator 40 11/28/16 20:00 40 11/28/16 20:00 56 11/28/16 19:00 63 18 82/37 96 Mechanical Ventilator 40 11/28/16 18:49 63 20 40 11/28/16 18:00 71 18 108/66 100 Mechanical Ventilator 40 11/28/16 17:00 67 18 109/65 99 Mechanical Ventilator 40 11/28/16 16:39 67 20 40 11/28/16 16:00 40 11/28/16 16:00 64 11/28/16 16:00 98.9 53 18 99/49 97 Mechanical Ventilator 40 11/28/16 15:00 64 18 100/56 97 Mechanical Ventilator 40 11/28/16 14:56 69 20 40 11/28/16 14:00 74 20 103/48 99 Mechanical Ventilator 40 11/28/16 13:26 71 20 40 11/28/16 13:00 65 20 84/54 98 Mechanical Ventilator 40 11/28/16 12:00 60 11/28/16 12:00 98.9 61 19 93/56 99 Mechanical Ventilator 40 11/28/16 12:00 40 11/28/16 11:01 69 20 40 11/28/16 11:00 63 20 83/49 97 Mechanical Ventilator 40 11/28/16 10:00 71 20 94/45 97 Mechanical Ventilator 40 11/28/16 09:28 82 20 40 11/28/16 09:00 75 17 100/45 93 Mechanical Ventilator 30 11/28/16 08:00 60 11/28/16 08:00 99.1 65 20 84/37 98 Mechanical Ventilator 30 11/28/16 08:00 73 11/28/16 07:00 63 20 101/57 100 Mechanical Ventilator 30 11/28/16 06:39 75 20 30 11/28/16 06:00 72 20 110/49 100 Mechanical Ventilator 30 11/28/16 05:00 77 21 110/55 100 Mechanical Ventilator 30 11/28/16 04:00 60 11/28/16 04:00 97.8 79 21 100/48 98 Mechanical Ventilator 30 11/28/16 04:00 85 11/28/16 03:04 55 20 30 11/28/16 03:00 61 20 94/32 98 Mechanical Ventilator 30 11/28/16 02:00 60 20 94/37 98 Mechanical Ventilator 30 11/28/16 01:03 54 20 30 11/28/16 01:00 61 20 96/53 95 Mechanical Ventilator 30 11/28/16 00:00 97.9 60 20 98/55 99 Mechanical Ventilator 30 11/27/16 23:15 64 20 30 11/27/16 23:00 63 21 91/37 99 Mechanical Ventilator 30 Intake and Output 11/28/16 11/29/16 19:00 07:00 Intake Total 387.776 ml 50 ml Output Total 210 ml 35 ml Balance 177.776 ml 15 ml IV Total 387.776 ml 50 ml Output Urine Total 210 ml 35 ml Laboratory Tests 11/28/16 03:30: White Blood Count 5.7, Red Blood Count 2.83L, Hemoglobin 8.5L, Hematocrit 26.7L , Mean Corpuscular Volume 94, Mean Corpuscular Hemoglobin 30.1, Mean Corpuscular Hemoglobin Concent 31.9L, Red Cell Distribution Width 16.3H, Platelet Count 168, Mean Platelet Volume 5.6L, Neutrophils (%) (Auto) 59.5, Lymphocytes (%) (Auto) 21.2, Monocytes (%) (Auto) 12.5H, Eosinophils (%) (Auto) 6.3H, Basophils (%) (Auto) 0.5, Erythrocyte Sedimentation Rate 71H, Sodium Level 145, Potassium Level 3.2L, Chloride Level 103, Carbon Dioxide Level 32, Anion Gap 10, Blood Urea Nitrogen 26H, Creatinine 3.1H, Estimat Glomerular Filtration Rate , Glucose Level 72L, Uric Acid 4.9, Calcium Level 7.9L, Phosphorus Level 2.1L, Magnesium Level 1.6L, Total Bilirubin 1.3H, Direct Bilirubin 0.5H, Gamma Glutamyl Transpeptidase 21, Aspartate Amino Transf (AST/ SGOT) 15, Alanine Aminotransferase (ALT/SGPT) < 6L, Alkaline Phosphatase 57, Total Creatine Kinase 58, C-Reactive Protein, Quantitative 5.6H, Pro-B-Type Natriuretic Peptide 31441I, Total Protein 6.8, Albumin 2.1L, Globulin 4.7, Albumin/Globulin Ratio 0.4L Height (Feet): 5 Height (Inches): 5.00 Weight (Pounds): 356 General Appearance: no apparent distress EENT: normal ENT inspection Neck: normal alignment Cardiovascular: no JVD Abdomen: distended Skin: normal pigmentation NAIDA MANJARREZ Nov 28, 2016 22:04
[2016-11-29] VITALS (24 sets, daily range): BP systolic 75–121; BP diastolic 38–79
[2016-11-29 05:18] LABS: BASOPHILS % (AUTO) 0.8 % (0.0-2.0); EOSINOPHILS % (AUTO) 3.1 % (0.0-3.0); LYMPHOCYTES % (AUTO) 15.5 % (20.0-45.0); MEAN CORPUSCULAR HEMOGLOBIN 30.5 PG (27.0-31.0); MEAN CORPUSCULAR HGB CONC 31.7 G/DL (32.0-36.0); MEAN CORPUSCULAR VOLUME 96 FL (80-99); MEAN PLATELET VOLUME 5.6 FL (6.5-10.1); MONOCYTES % (AUTO) 11.8 % (1.0-10.0); NEUTROPHILS % (AUTO) 68.8 % (45.0-75.0); PLATELET COUNT 168 K/UL (150-450); RED BLOOD COUNT 2.79 M/UL (4.20-5.40); RED CELL DISTRIBUTION WIDTH 18.7 % (11.6-14.8); WHITE BLOOD COUNT 8.2 K/UL (4.8-10.8)
[2016-11-29 06:30] LABS: ALBUMIN/GLOBULIN RATIO 0.4 (1.0-2.7); ANION GAP 10 mmol/L (5-15); ASPARTATE AMINO TRANSFERASE 13 U/L (15-37); CALCIUM 8.4 MG/DL (8.5-10.1); CARBON DIOXIDE 32 MMOL/L (21-32); CHLORIDE 103 MMOL/L (98-107); CREATININE 3.3 MG/DL (0.55-1.30); MAGNESIUM 1.9 MG/DL (1.8-2.4); PHOSPHORUS 2.7 MG/DL (2.5-4.9); POTASSIUM 3.2 MMOL/L (3.5-5.1); SODIUM 144 MMOL/L (136-145); TOTAL PROTEIN 6.7 G/DL (6.4-8.2)
[2016-11-29 06:59] LABS: ALANINE AMINOTRANSFERASE < 6 U/L (12-78); BILIRUBIN,DIRECT 0.6 MG/DL (0.0-0.3)
[2016-11-29] MEDS: Revatio 20mg tab ORAL SCH ×3 (08:30→17:53)
[2016-11-29] MEDS: Midodrine 10mg tab ORAL SCH ×3 (08:30→17:53)
[2016-11-29] MEDS: Miralax 17gm pkt ORAL SCH (08:30)
[2016-11-29] MEDS: Pantoprazole Inj IVP SCH (08:31)
[2016-11-29] MEDS: Docusate 100mg cap ORAL SCH ×2 (08:31→17:53)
[2016-11-29 08:57] LABS: ABG BASE EXCESS 10.9; ABG PCO2 26.2 mmHg (35.0-45.0)
[2016-11-29 08:58] LABS: ABG ALLEN TEST POSITIVE
[2016-11-29] MEDS ORDERED: KCl 10% 40mEq/30ml liquid NG ONE (09:00)
--- NOTE | 2016-11-29 09:07 | Infectious Diseases Prog Note ---
Assessment/Plan Assessment/Plan Abx: IV Vancomycin 11/11-11/12; 11/17-11/26 IV Cefepime 11/11-11/12 IV Ancef 11/12- Flagyl x1 11/11 Assesment: Cellulitis BLE and R arm- in the setting of chronic leg edema/venous stasis- Limited Venous duplex BLE (non diagnostic), no DVT R arm; mild improved; Main component is of venous stasis so erythema would not completely resolve with abx -Bcx Neg Anasarca/ bilateral leg lymphedema -CXR 11/19: Interstitial edema/CHF unchanged Afebrile, no leukocytosis REnal insufficiency VRE colonzied COPD Diastolic CHF chronic resp failure, vent/trach dependent, Gtbue, pAfib, pleural effusion, MINA , CKD, GERD, morbid obesity, NH resident Plan: -Continue Ancef for cellulitis (abx # /) -s/p 10 d IV Vancomycin 11/26 -extremity elevation -edema management -Monitor CBC/BMP, temperatures - vent support, trach care, aspiration precautions Thank you for this consultation. Will continue to follow along with you. 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 RN. Subjective Allergies: Coded Allergies: AMOXICILLIN (Verified Allergy, Mild, RASH, 09/30/16) PENICILLINS (Unverified Allergy, Unknown, 09/30/16) Subjective afebrile no leukocytosis remains in ICU Objective Vital Signs Last 24 Hour Vital Signs Date Time Temp Pulse Resp B/P (MAP) Pulse Ox O2 Delivery O2 Flow Rate FiO2 11/29/16 08:46 Mechanical Ventilator 40 11/29/16 08:00 98.8 59 23 101/47 99 Mechanical Ventilator 100 11/29/16 08:00 62 11/29/16 08:00 40 11/29/16 07:00 73 18 97/53 99 Mechanical Ventilator 40 11/29/16 06:32 72 20 40 11/29/16 06:00 69 18 96/62 99 Mechanical Ventilator 40 11/29/16 05:27 71 20 40 11/29/16 05:00 67 18 99/51 99 Mechanical Ventilator 40 11/29/16 05:00 Mechanical Ventilator 40 11/29/16 04:00 98.9 57 19 102/51 99 Mechanical Ventilator 40 11/29/16 04:00 40 11/29/16 04:00 58 11/29/16 03:20 69 20 40 11/29/16 03:00 58 18 100/41 99 Mechanical Ventilator 40 11/29/16 02:00 59 18 97/42 99 Mechanical Ventilator 40 11/29/16 01:00 61 18 118/61 97 Mechanical Ventilator 40 11/29/16 00:48 63 20 40 11/29/16 00:00 65 11/29/16 00:00 98.0 59 18 99/48 97 Mechanical Ventilator 40 11/29/16 00:00 40 11/28/16 23:10 63 20 40 11/28/16 23:00 67 18 103/46 99 Mechanical Ventilator 40 11/28/16 22:00 63 18 106/54 99 Mechanical Ventilator 40 11/28/16 21:00 64 18 100/49 96 Mechanical Ventilator 40 11/28/16 20:52 63 20 40 11/28/16 20:00 98.9 59 19 89/37 99 Mechanical Ventilator 40 11/28/16 20:00 40 11/28/16 20:00 56 11/28/16 19:00 63 18 82/37 96 Mechanical Ventilator 40 11/28/16 18:49 63 20 40 11/28/16 18:00 71 18 108/66 100 Mechanical Ventilator 40 11/28/16 17:00 67 18 109/65 99 Mechanical Ventilator 40 11/28/16 16:39 67 20 40 11/28/16 16:00 40 11/28/16 16:00 64 11/28/16 16:00 98.9 53 18 99/49 97 Mechanical Ventilator 40 11/28/16 15:00 64 18 100/56 97 Mechanical Ventilator 40 11/28/16 14:56 69 20 40 11/28/16 14:00 74 20 103/48 99 Mechanical Ventilator 40 11/28/16 13:26 71 20 40 11/28/16 13:00 65 20 84/54 98 Mechanical Ventilator 40 11/28/16 12:00 60 11/28/16 12:00 98.9 61 19 93/56 99 Mechanical Ventilator 40 11/28/16 12:00 40 11/28/16 11:01 69 20 40 11/28/16 11:00 63 20 83/49 97 Mechanical Ventilator 40 11/28/16 10:00 71 20 94/45 97 Mechanical Ventilator 40 11/28/16 09:28 82 20 40 Height (Feet): 5 Height (Inches): 5.00 Weight (Pounds): 372 Objective General Appearance: WD/WN HEENT: trach in palce, Respiratory/Chest: chest wall non-tender, lungs clear Cardiovascular/Chest: normal peripheral pulses, normal rate Abdomen: normal bowel sounds, non tender Ext: anasarca; R > L LE swelling, both legs with blanching erythema anteriorly from distal leg up to below knee, +warmth, non TTP, no drainage; R arm swelling, erythematous,. background changes of chronic lymphedema on b/l legs; erythema and swelling improved reviewed Laboratory Tests Test 11/29/16 04:00 11/29/16 08:41 White Blood Count 8.2 K/UL (4.8-10.8) Red Blood Count 2.79 M/UL (4.20-5.40) L Hemoglobin 8.5 G/DL (12.0-16.0) L Hematocrit 26.8 % (37.0-47.0) L Mean Corpuscular Volume 96 FL (80-99) Mean Corpuscular Hemoglobin 30.5 PG (27.0-31.0) Mean Corpuscular Hemoglobin Concent 31.7 G/DL (32.0-36.0) L Red Cell Distribution Width 18.7 % (11.6-14.8) H Platelet Count 168 K/UL (150-450) Mean Platelet Volume 5.6 FL (6.5-10.1) L Neutrophils (%) (Auto) 68.8 % (45.0-75.0) Lymphocytes (%) (Auto) 15.5 % (20.0-45.0) L Monocytes (%) (Auto) 11.8 % (1.0-10.0) H Eosinophils (%) (Auto) 3.1 % (0.0-3.0) H Basophils (%) (Auto) 0.8 % (0.0-2.0) Sodium Level 144 MMOL/L (136-145) Potassium Level 3.2 MMOL/L (3.5-5.1) L Chloride Level 103 MMOL/L (98-107) Carbon Dioxide Level 32 MMOL/L (21-32) Anion Gap 10 mmol/L (5-15) Blood Urea Nitrogen 29 mg/dL (7-18) H Creatinine 3.3 MG/DL (0.55-1.30) H Estimat Glomerular Filtration Rate mL/min (>60) Glucose Level 83 MG/DL (74-106) Calcium Level 8.4 MG/DL (8.5-10.1) L Phosphorus Level 2.7 MG/DL (2.5-4.9) Magnesium Level 1.9 MG/DL (1.8-2.4) Total Bilirubin 1.5 MG/DL (0.2-1.0) H Direct Bilirubin 0.6 MG/DL (0.0-0.3) H Aspartate Amino Transf (AST/SGOT) 13 U/L (15-37) L Alanine Aminotransferase (ALT/SGPT) < 6 U/L (12-78) L Alkaline Phosphatase 56 U/L (46-116) Total Protein 6.7 G/DL (6.4-8.2) Albumin 2.0 G/DL (3.4-5.0) L Globulin 4.7 g/dL Albumin/Globulin Ratio 0.4 (1.0-2.7) L Arterial Blood pH 7.682 (7.350-7.450) Arterial Blood Partial Pressure CO2 26.2 mmHg (35.0-45.0) L Arterial Blood Partial Pressure O2 227.5 mmHg (75.0-100.0) H Arterial Blood HCO3 30.4 mmol/L (22.0-26.0) H Arterial Blood Oxygen Saturation 99.0 % (92.0-98.0) H Arterial Blood Base Excess 10.9 Mike Test Positive Current Medications Medications (Trade) Dose Ordered Sig/Kalyn Route PRN Reason Start Time Stop Time Status Last Admin Dose Admin Acetaminophen (Tylenol) 650 mg Q4H PRN ORAL Mild Pain/Temp > 100.5 11/14/16 08:00 12/12/16 07:59 11/22/16 20:22 Allopurinol (Allopurinol) 300 mg DAILY ORAL 11/16/16 10:00 12/16/16 09:59 11/29/16 08:30 Cefazolin Sodium 50 ml @ 100 mls/hr Q24H IV 11/22/16 21:00 11/29/16 20:59 11/28/16 20:35 Chlorhexidine Gluconate (Marni-Hex 2%) 1 applic Q24H TOPIC 11/27/16 20:00 12/27/16 19:59 11/28/16 20:24 Diphenhydramine HCl (Benadryl) 25 mg Q6H PRN IVP Itching 11/19/16 20:15 12/19/16 20:14 11/28/16 00:05 Docusate Sodium (Colace) 100 mg TWICE A DAY ORAL 11/14/16 09:00 12/12/16 08:59 11/29/16 08:31 Epoetin Santos (Procrit (for non ESRD use)) 10,000 units TUE-TUE-TUE SUBQ 11/17/16 21:00 12/17/16 20:59 11/26/16 21:04 Folic Acid (Folate) 1 mg DAILY ORAL 11/14/16 09:00 12/12/16 08:59 11/29/16 08:31 Gabapentin (Neurontin) 600 mg BID ORAL 11/14/16 09:00 12/14/16 08:59 11/29/16 08:31 Midodrine (Pro-Amatine) 10 mg THREE TIMES A DAY ORAL 11/21/16 13:00 12/21/16 12:59 11/29/16 08:30 Pantoprazole (Protonix) 40 mg DAILY IVP 11/14/16 09:00 12/12/16 08:59 11/29/16 08:31 Polyethylene Glycol (Miralax) 17 gm DAILY ORAL 11/14/16 09:00 12/12/16 08:59 11/29/16 08:30 Pravastatin Sodium (Pravachol) 20 mg BEDTIME ORAL 11/14/16 21:00 12/12/16 20:59 11/28/16 20:35 Sildenafil Citrate (Revatio) 20 mg THREE TIMES A DAY ORAL 11/14/16 09:00 12/12/16 08:59 11/29/16 08:30 Danielle Guo M.D. Nov 29, 2016 09:07
--- NOTE | 2016-11-29 09:35 | Pulmonolgy Critical Care Note ---
Critical Care - Asmt/Plan Problems: (1) Acute and chronic respiratory failure (2) Anasarca (3) ATN (acute tubular necrosis) (4) Atrial fibrillation (5) Morbid obesity (6) Pickwickian syndrome Respiratory: adjust tidal volume, monitor respiratory rate, adjust FIO2, CXR, other - change vent to SIMV to control the alkalosis Cardiac: continue to monitor HR/BP Renal: F/U I&O, keep IV fluid, check electrolytes Infectious Disease: check cultures, continue antibiotics Gastrointestinal: other - pt will need Gtube feeding, she agreed Endocrine: monitor blood sugar Hematologic: monitor H/H Neurologic: PRN Ativan, PRN Morphine Affect: PRN ativan Prophylaxis: Protonix Disposition: keep in ICU Notes Reviewed: cardio, renal 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: nurses, consultants, foster care case managerredevelopment manager - Objective Last 24 Hour Vital Signs Date Time Temp Pulse Resp B/P (MAP) Pulse Ox O2 Delivery O2 Flow Rate FiO2 11/29/16 09:00 91 25 104/56 95 Mechanical Ventilator 50 11/29/16 09:00 73 20 50 11/29/16 08:46 Mechanical Ventilator 40 11/29/16 08:00 98.8 59 23 101/47 99 Mechanical Ventilator 100 11/29/16 08:00 62 11/29/16 08:00 40 11/29/16 07:00 73 18 97/53 99 Mechanical Ventilator 40 11/29/16 06:32 72 20 100 11/29/16 06:00 69 18 96/62 99 Mechanical Ventilator 40 11/29/16 05:27 71 20 40 11/29/16 05:00 67 18 99/51 99 Mechanical Ventilator 40 11/29/16 05:00 Mechanical Ventilator 40 11/29/16 04:00 98.9 57 19 102/51 99 Mechanical Ventilator 40 11/29/16 04:00 40 11/29/16 04:00 58 11/29/16 03:20 69 20 40 11/29/16 03:00 58 18 100/41 99 Mechanical Ventilator 40 11/29/16 02:00 59 18 97/42 99 Mechanical Ventilator 40 11/29/16 01:00 61 18 118/61 97 Mechanical Ventilator 40 11/29/16 00:48 63 20 40 11/29/16 00:00 65 11/29/16 00:00 98.0 59 18 99/48 97 Mechanical Ventilator 40 11/29/16 00:00 40 11/28/16 23:10 63 20 40 11/28/16 23:00 67 18 103/46 99 Mechanical Ventilator 40 11/28/16 22:00 63 18 106/54 99 Mechanical Ventilator 40 11/28/16 21:00 64 18 100/49 96 Mechanical Ventilator 40 11/28/16 20:52 63 20 40 11/28/16 20:00 98.9 59 19 89/37 99 Mechanical Ventilator 40 11/28/16 20:00 40 11/28/16 20:00 56 11/28/16 19:00 63 18 82/37 96 Mechanical Ventilator 40 11/28/16 18:49 63 20 40 11/28/16 18:00 71 18 108/66 100 Mechanical Ventilator 40 11/28/16 17:00 67 18 109/65 99 Mechanical Ventilator 40 11/28/16 16:39 67 20 40 11/28/16 16:00 40 11/28/16 16:00 64 11/28/16 16:00 98.9 53 18 99/49 97 Mechanical Ventilator 40 11/28/16 15:00 64 18 100/56 97 Mechanical Ventilator 40 11/28/16 14:56 69 20 40 11/28/16 14:00 74 20 103/48 99 Mechanical Ventilator 40 11/28/16 13:26 71 20 40 11/28/16 13:00 65 20 84/54 98 Mechanical Ventilator 40 11/28/16 12:00 60 11/28/16 12:00 98.9 61 19 93/56 99 Mechanical Ventilator 40 11/28/16 12:00 40 11/28/16 11:01 69 20 40 11/28/16 11:00 63 20 83/49 97 Mechanical Ventilator 40 11/28/16 10:00 71 20 94/45 97 Mechanical Ventilator 40 Status: awake Condition: critical HEENT: atraumatic, normocephalic Lungs: clear Heart: HR/BP stable, HR/BP unstable Abdomen: soft, non-tender, feeding tube Extremities: no C/C/E, edema Decubiti: location Critical Care - Subjective ROS Limited/Unobtainable: Yes ICU Day: 18 Condition: critical EKG Rhythm: Sinus Rhythm FI02: 50 Vent Support Breath Rate: 20 Vent Support Mode: AC Vent Tidal Volume: 500 Sputum Amount: Small PEEP: 5.0 PIP: 58 I&O: Intake and Output 11/29/16 11/30/16 19:00 07:00 Output Total 3110 ml Balance -3110 ml Output Urine Total 10 ml Hemodialysis UF 3100 ml CXR: no change ET-Tube: 6.0 ET Position: 15 Labs: Laboratory Tests Test 11/29/16 04:00 11/29/16 08:41 White Blood Count 8.2 K/UL (4.8-10.8) Red Blood Count 2.79 M/UL (4.20-5.40) L Hemoglobin 8.5 G/DL (12.0-16.0) L Hematocrit 26.8 % (37.0-47.0) L Mean Corpuscular Volume 96 FL (80-99) Mean Corpuscular Hemoglobin 30.5 PG (27.0-31.0) Mean Corpuscular Hemoglobin Concent 31.7 G/DL (32.0-36.0) L Red Cell Distribution Width 18.7 % (11.6-14.8) H Platelet Count 168 K/UL (150-450) Mean Platelet Volume 5.6 FL (6.5-10.1) L Neutrophils (%) (Auto) 68.8 % (45.0-75.0) Lymphocytes (%) (Auto) 15.5 % (20.0-45.0) L Monocytes (%) (Auto) 11.8 % (1.0-10.0) H Eosinophils (%) (Auto) 3.1 % (0.0-3.0) H Basophils (%) (Auto) 0.8 % (0.0-2.0) Sodium Level 144 MMOL/L (136-145) Potassium Level 3.2 MMOL/L (3.5-5.1) L Chloride Level 103 MMOL/L (98-107) Carbon Dioxide Level 32 MMOL/L (21-32) Anion Gap 10 mmol/L (5-15) Blood Urea Nitrogen 29 mg/dL (7-18) H Creatinine 3.3 MG/DL (0.55-1.30) H Estimat Glomerular Filtration Rate mL/min (>60) Glucose Level 83 MG/DL (74-106) Calcium Level 8.4 MG/DL (8.5-10.1) L Phosphorus Level 2.7 MG/DL (2.5-4.9) Magnesium Level 1.9 MG/DL (1.8-2.4) Total Bilirubin 1.5 MG/DL (0.2-1.0) H Direct Bilirubin 0.6 MG/DL (0.0-0.3) H Aspartate Amino Transf (AST/SGOT) 13 U/L (15-37) L Alanine Aminotransferase (ALT/SGPT) < 6 U/L (12-78) L Alkaline Phosphatase 56 U/L (46-116) Total Protein 6.7 G/DL (6.4-8.2) Albumin 2.0 G/DL (3.4-5.0) L Globulin 4.7 g/dL Albumin/Globulin Ratio 0.4 (1.0-2.7) L Arterial Blood pH 7.682 (7.350-7.450) Arterial Blood Partial Pressure CO2 26.2 mmHg (35.0-45.0) L Arterial Blood Partial Pressure O2 227.5 mmHg (75.0-100.0) H Arterial Blood HCO3 30.4 mmol/L (22.0-26.0) H Arterial Blood Oxygen Saturation 99.0 % (92.0-98.0) H Arterial Blood Base Excess 10.9 Mike Test Positive ARASH MIRANDA Nov 29, 2016 09:35
--- NOTE | 2016-11-29 10:30 | Consultation ---
DATE OF CONSULTATION: 11/26/2016 CARDIOLOGY CONSULTATION CONSULTING PHYSICIAN: Faizan Peralta M.D. REFERRING PHYSICIAN: Manny Nolan M.D. REASON FOR REFERRAL: Need for anticoagulation. HISTORY OF PRESENT ILLNESS: The patient is a 76-year-old female, who is known to me from prior hospitalization and evaluation. The patient has been admitted to the hospital on 11/15/2016. She has developed edema of lower extremities, also right arm, and has been getting worse and redness and painfulness and she was admitted to the hospital. She has been in the intensive care unit on mechanical ventilator, and the consultation was requested by Dr. Nolan today to help with management of anticoagulation, being off of Eliquis since she has been started on hemodialysis during this hospitalization. The patient denies any chest pain at this time. Does admit to being short of breath occasionally. No palpitations. No dizziness or lightheadedness. PAST MEDICAL HISTORY: Positive for toxic metabolic encephalopathy; urinary tract infection; acute on chronic hypercarbic respiratory failure, status post trach and vent; acute on chronic renal failure; anemia; morbid obesity; paroxysmal episodes of atrial fibrillation; severe pulmonary hypertension; diastolic failure; depression; breast cancer, status post lumpectomy; hyperuricemia; fluid overload; chronic kidney disease; obstructive sleep apnea; and gastrointestinal bleeding, for which she has been taken off of anticoagulation. She has just had some pressure ulcers. She has had a history of tracheostomy, anemia, secondary to blood loss, B12 deficiency, pulmonary hypertension, treated with sildenafil, diabetes mellitus, cor pulmonale, systemic hypertension, chronic hypercapnic respiratory failure, CO2 narcosis, cardiorenal syndrome, and diabetic retinopathy. ALLERGIES: She is allergic to penicillin and amoxicillin. MEDICATIONS: The patient's medications include Ancef, allopurinol, Colace, Epogen, folic acid, Neurontin, midodrine, morphine, Protonix, MiraLAX, potassium, pravastatin, and sildenafil 20 mg 3 times a day. SOCIAL HISTORY: She used to smoke 34 years ago. No alcohol. No drugs. She resides in a convalescent facility. She has got a tracheostomy tube in place. REVIEW OF SYSTEMS: GASTROINTESTINAL: She denies any nausea, vomiting, or diarrhea. GENITOURINARY: She denies. PULMONARY: Positive for occasional coughing. CONSTITUTIONAL: No fever, chills, or night sweats. PHYSICAL EXAMINATION: GENERAL: Physical examination shows her to be an elderly female, on a mechanical ventilator. Awake, responsive, and communicative. NECK: Trach in place. There is some redness around the area. LUNGS: She does have extensive rhonchi noted bilaterally that camouflage as heart sounds that are regular rate. ABDOMEN: Soft. Abdominal wall edema of significant degree is noted in the lower part of the abdomen and in the proximal legs that are also significantly edematous as well as right upper extremity that is red and edematous. NEUROLOGICAL: She is awake, alert, responsive, and in no apparent respiratory distress, although she has been coughing. LABORATORY AND DIAGNOSTIC DATA: White count 6.3, hemoglobin 8.6, and platelet count of 186. She has got pH of 7.51, pCO2 of 33, pO2 of 425, and bicarbonate of 26. Sodium is 144, potassium 3.3, chloride 103, bicarbonate of 30, BUN of 50, creatinine of 4.4, and glucose of 86. Uric acid of 8.2. Calcium is 8.3. ProBNP is 19,941. Albumin of 2.0. Her coags, INR was 1.3 and PTT of 25. Urinalysis is from 11/12/2016, 20 to 30 RBCs and 30 to 40 WBCs. Chest x-ray on 11/26/2016 showed a right jugular temporary dialysis catheter remains in place. Bilateral congestive changes are noted. Telemetry shows atrial fibrillation, ventricular response is okay. ASSESSMENT: 1. Permanent atrial fibrillation. 2. Chronic respiratory failure, on a mechanical ventilator. 3. Cor pulmonale. 4. Pulmonary hypertension. 5. Acute renal failure, now on dialysis. 6. Anemia. 7. Significant edema. 8. Hypoalbuminemia. PLAN: Dr. Nolan, this patient was seen in cardiac consultation. She will be continued on ultrafiltration and dialysis as the patient's blood pressure does allow, although that seems to be a limiting factor. She has significant edema. She should be continued with nutritional support to help her albumin. As far as anticoagulation is concerned now that she is on dialysis, the only thing remaining for her to receive as a full anticoagulation for stroke prevention would be anticoagulation with heparin. Before she is started on that, she should have some stool studies checked and possibly have her hemoglobin monitored carefully to assure she does not have active GI bleeding. She will be at risk of recurrent GI bleeding as she has done that before. In either case, the decision will not be taken lightly and that possibility of resumption of anticoagulation will be followed through only after assurance of lack of GI bleed. Faizan Peralta M.D. DR: MARY JOB#: [id number] CC:
--- NOTE | 2016-11-29 10:33 | Diagnostic Imaging Report ---
Indication: DYSPNEA Technique: One view of the chest Comparison: 11/27/2016 Findings: Tracheostomy remains. Right jugular temporary dialysis catheter remains. The heart is enlarged. Interstitial congestion appears slightly improved. Impression: Slightly improved but persistent interstitial congestion, over 2 days. Other stable findings as described
--- NOTE | 2016-11-29 11:01 | General Progress Note ---
Assessment/Plan Status: stable Assessment/Plan Cellulitis BLE and R arm- in the setting of chronic leg edema- r/o DVT Anasarca/ bilateral leg lymphedema CKD- and acute renal failure - Acute respiratory failure s/p Trach Obese COPD , CHF, Diastolic MINA UTI Anemia GI Bleed, GI bleeding At Fib Pulm HTN h/o Low B12 plan: 4th HD and UF was done today. K supplement on EPOGEN 24 H urine collection in process: CrCl 6 Monitor renal parameters- optimize cardiac and pulm status avoid nephrotoxics- pulmonary support- transfuse as needed ? DC planning Subjective ROS Limited/Unobtainable: No Allergies: Coded Allergies: AMOXICILLIN (Verified Allergy, Mild, RASH, 09/30/16) PENICILLINS (Unverified Allergy, Unknown, 09/30/16) Objective Last 24 Hour Vital Signs Date Time Temp Pulse Resp B/P (MAP) Pulse Ox O2 Delivery O2 Flow Rate FiO2 11/29/16 10:00 120 24 94/66 99 Mechanical Ventilator 30 11/29/16 09:00 91 25 104/56 95 Mechanical Ventilator 50 11/29/16 09:00 73 20 50 11/29/16 08:46 Mechanical Ventilator 40 11/29/16 08:00 98.8 59 23 101/47 99 Mechanical Ventilator 100 11/29/16 08:00 62 11/29/16 08:00 40 11/29/16 07:00 73 18 97/53 99 Mechanical Ventilator 40 11/29/16 06:32 72 20 100 11/29/16 06:00 69 18 96/62 99 Mechanical Ventilator 40 11/29/16 05:27 71 20 40 11/29/16 05:00 67 18 99/51 99 Mechanical Ventilator 40 11/29/16 05:00 Mechanical Ventilator 40 11/29/16 04:00 98.9 57 19 102/51 99 Mechanical Ventilator 40 11/29/16 04:00 40 11/29/16 04:00 58 11/29/16 03:20 69 20 40 11/29/16 03:00 58 18 100/41 99 Mechanical Ventilator 40 11/29/16 02:00 59 18 97/42 99 Mechanical Ventilator 40 11/29/16 01:00 61 18 118/61 97 Mechanical Ventilator 40 11/29/16 00:48 63 20 40 11/29/16 00:00 65 11/29/16 00:00 98.0 59 18 99/48 97 Mechanical Ventilator 40 11/29/16 00:00 40 11/28/16 23:10 63 20 40 11/28/16 23:00 67 18 103/46 99 Mechanical Ventilator 40 11/28/16 22:00 63 18 106/54 99 Mechanical Ventilator 40 11/28/16 21:00 64 18 100/49 96 Mechanical Ventilator 40 11/28/16 20:52 63 20 40 11/28/16 20:00 98.9 59 19 89/37 99 Mechanical Ventilator 40 11/28/16 20:00 40 11/28/16 20:00 56 11/28/16 19:00 63 18 82/37 96 Mechanical Ventilator 40 11/28/16 18:49 63 20 40 11/28/16 18:00 71 18 108/66 100 Mechanical Ventilator 40 11/28/16 17:00 67 18 109/65 99 Mechanical Ventilator 40 11/28/16 16:39 67 20 40 11/28/16 16:00 40 11/28/16 16:00 64 11/28/16 16:00 98.9 53 18 99/49 97 Mechanical Ventilator 40 11/28/16 15:00 64 18 100/56 97 Mechanical Ventilator 40 11/28/16 14:56 69 20 40 11/28/16 14:00 74 20 103/48 99 Mechanical Ventilator 40 11/28/16 13:26 71 20 40 11/28/16 13:00 65 20 84/54 98 Mechanical Ventilator 40 11/28/16 12:00 60 11/28/16 12:00 98.9 61 19 93/56 99 Mechanical Ventilator 40 11/28/16 12:00 40 11/28/16 11:01 69 20 40 Intake and Output 11/29/16 11/30/16 19:00 07:00 Output Total 3140 ml Balance -3140 ml Output Urine Total 40 ml Hemodialysis UF 3100 ml Laboratory Tests 11/29/16 04:00: White Blood Count 8.2, Red Blood Count 2.79L, Hemoglobin 8.5L, Hematocrit 26.8L , Mean Corpuscular Volume 96, Mean Corpuscular Hemoglobin 30.5, Mean Corpuscular Hemoglobin Concent 31.7L, Red Cell Distribution Width 18.7H, Platelet Count 168, Mean Platelet Volume 5.6L, Neutrophils (%) (Auto) 68.8, Lymphocytes (%) (Auto) 15.5L, Monocytes (%) (Auto) 11.8H, Eosinophils (%) (Auto ) 3.1H, Basophils (%) (Auto) 0.8, Sodium Level 144, Potassium Level 3.2L, Chloride Level 103, Carbon Dioxide Level 32, Anion Gap 10, Blood Urea Nitrogen 29H, Creatinine 3.3H, Estimat Glomerular Filtration Rate , Glucose Level 83, Calcium Level 8.4L, Phosphorus Level 2.7, Magnesium Level 1.9, Total Bilirubin 1.5H, Direct Bilirubin 0.6H, Aspartate Amino Transf (AST/SGOT) 13L, Alanine Aminotransferase (ALT/SGPT) < 6L, Alkaline Phosphatase 56, Total Protein 6.7, Albumin 2.0L, Globulin 4.7, Albumin/Globulin Ratio 0.4L 11/29/16 08:41: Arterial Blood pH 7.682*H, Arterial Blood Partial Pressure CO2 26.2L, Arterial Blood Partial Pressure O2 227.5H, Arterial Blood HCO3 30.4H, Arterial Blood Oxygen Saturation 99.0H, Arterial Blood Base Excess 10.9, Mike Test Positive Height (Feet): 5 Height (Inches): 5.00 Weight (Pounds): 372 General Appearance: no apparent distress Cardiovascular: normal rate Respiratory/Chest: decreased breath sounds Abdomen: distended Edema: 2+ Arm (L), 2+ Arm (R), 2+ Leg (L), 2+ Leg (R), 2+ Pedal (L), 2+ Pedal ( R), 2+ Generalized Objective much less edematous COURTNEY LOPEZ Nov 29, 2016 11:01
[2016-11-29] MEDS: DiphenhydrAMINE 50mg/ml Inj IVP PRN (13:04)
[2016-11-29 13:07] LABS: INR 1.5 (0.9-1.1); PROTHROMBIN TIME 15.4 SEC (9.30-11.50)
[2016-11-29] MEDS ORDERED: LORazepam Inj 2mg/ml 1ml IV PRN (13:15)
--- NOTE | 2016-11-29 13:21 | GI Initial Consult Note ---
Sherman,Kateryna Tj NKarinePKarine 11/29/16 1321: History of Present Illness General Date patient seen: Nov 29, 2016 Time patient seen: 11:00 Reason for Hospitalization: General Complaint Referring physician: JODI GAVIRIA Reason for Consultation: PEG EVALUATION Present Illness HPI Patient is ventilator dependent. She's sent in for edema of her lower extremities and also right arm. This is been worsening for several weeks. Now the legs are red and quite painful. She is able to vocalize, even though she has trach. She states pain in legs 10/10, burning and aching. Calfs more than upper legs, without radiation. Constant pain. Denies meds given to help. She has chronic sputum which is unchanged. She denies chest pain or increased dyspnea. No change in bowels. She has weakness of all extrem. No increased pain in R arm. No NVD. GI consulted for PEG evaluation. HPI as noted above. Pt seen in ICU, trach to rosales A&Ox4 non verbal at this time but able to communicate with clip board. ST evaluation noted with recommendations for residential non oral feedings due to overall poor respiratory status. Unknown history of colonoscopy/endoscopies. Home Meds Active Scripts Ertapenem Sodium* (INVanz*) 1 Gm Vial.port, 1 GM IVPB Q24H for 2 Days, VIAL Prov:ARASH MIRANDA 10/21/16 Sildenafil Citrate (Revatio) 20 Mg Tablet, 20 MG ORAL THREE TIMES A DAY for 30 Days, TAB Prov:ARASH MIRANDA 09/23/16 Sevelamer Carbonate (Renvela) 800 Mg Tablet, 800 MG ORAL THREE TIMES A DAY for 30 Days, TAB Prov:ARASH MIRANDA 09/23/16 Reported Medications Sildenafil Citrate (SILDENAFIL) 20 Mg Tablet, 20 MG ORAL TID, TAB 0 Refills 11/11/16 Sevelamer Carbonate* (RENVELA*) 0.8 Gm Powd.pack, 800 MG ORAL THREE TIMES A DAY , PACK 11/11/16 Vit B Cmplx 3/Fa/Vit C/Biotin (ALEJANDRA-HALLE RX TABLET) 1 Each Tablet, 1 EACH PO DAILY, TAB 11/11/16 Gabapentin* (GABAPENTIN*) 600 Mg Tablet, 600 MG ORAL BID, TAB 11/11/16 Furosemide* (LASIX*) 40 Mg Tablet, 40 MG ORAL THREE TIMES A DAY, TAB 11/11/16 Epoetin Santos (Epogen) 4,000 Unit/1 Ml Vial, 5000 UNIT SUBQ 3XW, VIAL 11/11/16 Cranberry Extract (Cranberry) 500 Mg Tablet, 425 MG PO DAILY, TAB 11/11/16 Calcium Carbonate (CALCIUM CARBONATE) 500 Mg Tablet, 500 MG PO BID, TAB 11/11/16 Albuterol Sulfate* (ALBUTEROL SULFATE HHN*) 2.5 Mg/3 Ml Vial.neb, 3 ML INH EVERY 2 HOURS Y for Shortness of Breath, EA 11/11/16 Acetaminophen* (ACETAMINOPHEN*) 160 Mg/5 Ml Solution, 650 MG ORAL Q4HR Y for Fever/Headache/Mild Pain, ML 11/11/16 Acetaminophen* (ACETAMINOPHEN 325MG TABLET*) 325 Mg Tablet, 650 MG ORAL Q4H Y for Mild Pain/Temp > 100.5, TAB 10/16/16 Ipratropium/Albuterol Sulfate (DuoNeb 0.5-3(2.5)mg/3ml) 3 Ml Ampul.neb, 3 ML HHN EVERY 2 HOURS, EA 10/16/16 Nutritional Supplement (HI-SWAPNA) 1,000 Ml Liquid, 1000 ML PO TID, ML 10/01/16 Folic Acid/Vitamin B Comp W-C (ALEJANDRA-HALLE TABLET) 0.8 Mg Tablet, 0.8 MG PO DAILY , TAB 10/01/16 Cranberry Extract (CRANBERRY) 200 Mg Capsule, 200 MG PO DAILY, CAP 10/01/16 Ipratropium/Albuterol Sulfate (DuoNeb 0.5-3(2.5)mg/3ml) 3 Ml Ampul.neb, 3 ML HHN Q6HR Y for Shortness of Breath, EA 10/01/16 Acetaminophen* (ACETAMINOPHEN*) 160 Mg/5 Ml Solution, 650 MG ORAL Q4HR Y for Fever/Headache/Mild Pain, ML 10/01/16 Prednisone* (PREDNISONE*) 10 Mg Tablet, 10 MG ORAL DAILY, #10 TAB 0 Refills 04/06/16 Pravastatin Sod* (PRAVASTATIN SOD*) 20 Mg Tablet, 20 MG ORAL BEDTIME, TAB 04/06/16 Polyethylene Glycol 3350* (MIRALAX*) 17 Gm Powd.pack, 17 GM ORAL DAILY, PACKET 04/06/16 Pantoprazole (PANTOPRAZOLE) 20 Mg Tablet.dr, 40 MG ORAL DAILY, #10 TAB 0 Refills 04/06/16 Lidocaine (Lidocaine) 1 Each Adh..patch, 700 MG TP EVERY 24 HOURS, PATCH 04/06/16 Letrozole (Femara) 2.5 Mg Tablet, 2.5 MG ORAL DAILY, #10 TAB 0 Refills 04/06/16 Lactobacillus Acidophilus (PROBIOTIC) 1 Each Capsule, 1 EACH PO DAILY, CAP 04/06/16 Gabapentin* (GABAPENTIN*) 600 Mg Tablet, 600 MG ORAL TWICE A DAY, TAB 04/06/16 Furosemide* (LASIX*) 40 Mg Tablet, 20 MG ORAL TWICE A DAY, TAB 0 Refills 04/06/16 Folic Acid* (FOLIC ACID*) 1 Mg Tablet, 1 MG ORAL DAILY, TAB 04/06/16 Fluticasone Propionate* (FLUTICASONE PROPIONATE*) 16 Gm [place].susp, 1 SPRAY NASAL DAILY, EA 04/06/16 Docusate Sodium* (DOCUSATE SODIUM*) 100 Mg Capsule, 100 MG ORAL TWICE A DAY, CAP 04/06/16 Cyanocobalamin (Vitamin B-12)* (VITAMIN B-12*) 500 Mcg Tablet, 3000 MCG ORAL DAILY, #30 TAB 0 Refills 04/06/16 Calcium Carbonate (Calcium Carbonate) 500 Mg Tablet, 1250 MG ORAL BID, TAB 04/06/16 Calcitriol (Calcitriol) 0.25 Mcg Capsule, 0.25 MCG ORAL DAILY, CAP 04/06/16 Apixaban (ELIQUIS) 2.5 Mg Tablet, 2.5 MG PO BID, TAB 04/06/16 Med list reviewed/reconciled: Yes Allergies: Coded Allergies: AMOXICILLIN (Verified Allergy, Mild, RASH, 09/30/16) PENICILLINS (Unverified Allergy, Unknown, 09/30/16) Patient History History Provided By: Patient, Medical Record PMH Narrative Past Medical History: see triage record, old chart reviewed Past Surgical History: other - trach Social History: Reports: smoking - former Social History Narrative senior care facility Last Menstrual Period: na Now: No Reviewed Nursing Documentation: PMH: Agreed, PSxH: Agreed Nursing Documentation-PMH Hx Cardiac Problems: Yes - ANEMIA, HYPERKALEMIA, HYPERLIPIDEMIA Hx Hypertension: Yes - PAROXYSMAL AFIB, PLEURAL EFFUSION, CHF Hx COPD: Yes - ARF WITH HYPERCAPNIA, DYSPHAGIA,OBSTRUCTIVE SLEEP APNEA Hx Diabetes: Yes Hx Cancer: Yes Hx Gastrointestinal Problems: Yes - GERD, CKD, OBESITY, ACUTE KIDNEY FAILURE Hx Dialysis: Yes Hx Neurological Problems: Yes Hx Seizures: Yes Review of Systems All Other Systems: negative except mentioned in HPI Physical Exam Vital Signs Date Time Temp Pulse Resp B/P (MAP) Pulse Ox O2 Delivery O2 Flow Rate FiO2 11/25/16 07:00 61 20 92/51 99 Mechanical Ventilator 30 11/25/16 08:00 98.1 Sp02 EP Interpretation: reviewed, normal Labs Laboratory Tests Test 11/29/16 04:00 11/29/16 08:41 11/29/16 12:30 White Blood Count 8.2 K/UL (4.8-10.8) Red Blood Count 2.79 M/UL (4.20-5.40) L Hemoglobin 8.5 G/DL (12.0-16.0) L Hematocrit 26.8 % (37.0-47.0) L Mean Corpuscular Volume 96 FL (80-99) Mean Corpuscular Hemoglobin 30.5 PG (27.0-31.0) Mean Corpuscular Hemoglobin Concent 31.7 G/DL (32.0-36.0) L Red Cell Distribution Width 18.7 % (11.6-14.8) H Platelet Count 168 K/UL (150-450) Mean Platelet Volume 5.6 FL (6.5-10.1) L Neutrophils (%) (Auto) 68.8 % (45.0-75.0) Lymphocytes (%) (Auto) 15.5 % (20.0-45.0) L Monocytes (%) (Auto) 11.8 % (1.0-10.0) H Eosinophils (%) (Auto) 3.1 % (0.0-3.0) H Basophils (%) (Auto) 0.8 % (0.0-2.0) Sodium Level 144 MMOL/L (136-145) Potassium Level 3.2 MMOL/L (3.5-5.1) L Chloride Level 103 MMOL/L (98-107) Carbon Dioxide Level 32 MMOL/L (21-32) Anion Gap 10 mmol/L (5-15) Blood Urea Nitrogen 29 mg/dL (7-18) H Creatinine 3.3 MG/DL (0.55-1.30) H Estimat Glomerular Filtration Rate mL/min (>60) Glucose Level 83 MG/DL (74-106) Calcium Level 8.4 MG/DL (8.5-10.1) L Phosphorus Level 2.7 MG/DL (2.5-4.9) Magnesium Level 1.9 MG/DL (1.8-2.4) Total Bilirubin 1.5 MG/DL (0.2-1.0) H Direct Bilirubin 0.6 MG/DL (0.0-0.3) H Aspartate Amino Transf (AST/SGOT) 13 U/L (15-37) L Alanine Aminotransferase (ALT/SGPT) < 6 U/L (12-78) L Alkaline Phosphatase 56 U/L (46-116) Total Protein 6.7 G/DL (6.4-8.2) Albumin 2.0 G/DL (3.4-5.0) L Globulin 4.7 g/dL Albumin/Globulin Ratio 0.4 (1.0-2.7) L Arterial Blood pH 7.682 (7.350-7.450) Arterial Blood Partial Pressure CO2 26.2 mmHg (35.0-45.0) L Arterial Blood Partial Pressure O2 227.5 mmHg (75.0-100.0) H Arterial Blood HCO3 30.4 mmol/L (22.0-26.0) H Arterial Blood Oxygen Saturation 99.0 % (92.0-98.0) H Arterial Blood Base Excess 10.9 Mike Test Positive Prothrombin Time 15.4 SEC (9.30-11.50) H Prothromb Time International Ratio 1.5 (0.9-1.1) H General Appearance: alert, obese Head: normocephalic EENT: PERRL/EOMI, normal ENT inspection Neck: supple Respiratory: normal breath sounds, no respiratory distress, other - trach to vent Cardiovascular: normal rate Gastrointestinal: normal inspection, non tender, soft, normal bowel sounds, non -distended Rectal: deferred Neurologic: normal inspection, alert, oriented x3, responsive Psychiatric: normal inspection, judgement/insight normal, memory normal Skin: normal inspection, normal color, no rash, warm/dry, palpation normal, well hydrated Lymphatic: normal inspection, no adenopathy Current Medications Current Medications Medications (Trade) Dose Ordered Sig/Kalyn Route PRN Reason Start Time Stop Time Status Last Admin Dose Admin Acetaminophen (Tylenol) 650 mg Q4H PRN ORAL Mild Pain/Temp > 100.5 11/14/16 08:00 12/12/16 07:59 11/22/16 20:22 Allopurinol (Allopurinol) 300 mg DAILY ORAL 11/16/16 10:00 12/16/16 09:59 11/29/16 08:30 Cefazolin Sodium 50 ml @ 100 mls/hr Q24H IV 11/22/16 21:00 11/29/16 20:59 11/28/16 20:35 Chlorhexidine Gluconate (Marni-Hex 2%) 1 applic Q24H TOPIC 11/27/16 20:00 12/27/16 19:59 11/28/16 20:24 Diphenhydramine HCl (Benadryl) 25 mg Q6H PRN IVP Itching 11/19/16 20:15 12/19/16 20:14 11/29/16 13:04 Docusate Sodium (Colace) 100 mg TWICE A DAY ORAL 11/14/16 09:00 12/12/16 08:59 11/29/16 08:31 Epoetin Santos (Procrit (for non ESRD use)) 10,000 units TUE-TUE-TUE SUBQ 11/17/16 21:00 12/17/16 20:59 11/26/16 21:04 Folic Acid (Folate) 1 mg DAILY ORAL 11/14/16 09:00 12/12/16 08:59 11/29/16 08:31 Gabapentin (Neurontin) 600 mg BID ORAL 11/14/16 09:00 12/14/16 08:59 11/29/16 08:31 Midodrine (Pro-Amatine) 10 mg THREE TIMES A DAY ORAL 11/21/16 13:00 12/21/16 12:59 11/29/16 08:30 Pantoprazole (Protonix) 40 mg DAILY IVP 11/14/16 09:00 12/12/16 08:59 11/29/16 08:31 Polyethylene Glycol (Miralax) 17 gm DAILY ORAL 11/14/16 09:00 12/12/16 08:59 11/29/16 08:30 Pravastatin Sodium (Pravachol) 20 mg BEDTIME ORAL 11/14/16 21:00 12/12/16 20:59 11/28/16 20:35 Sildenafil Citrate (Revatio) 20 mg THREE TIMES A DAY ORAL 11/14/16 09:00 12/12/16 08:59 11/29/16 08:30 GI: Plan Problems: (1) PEG (percutaneous endoscopic gastrostomy) adjustment/replacement/removal (2) Positive occult stool blood test (3) Morbid obesity Plan PEG scheduled tomorrow. - NPO @ [facility]. - hold any blood thinners tonight anemia work up monitor H&H, prn transfusions bowel regime ppi fu labs 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 Dr. Rodriguez. Thank you for this patient referral, we will follow. RUDDY RODRIGUEZ 11/30/16 1516: History of Present Illness General Reason for Hospitalization: General Complaint Present Illness Home Meds Active Scripts Ertapenem Sodium* (INVanz*) 1 Gm Vial.port, 1 GM IVPB Q24H for 2 Days, VIAL Prov:RUBENMIRALI 10/21/16 Sildenafil Citrate (Revatio) 20 Mg Tablet, 20 MG ORAL THREE TIMES A DAY for 30 Days, TAB Prov:ZARRABI,MIRALI 09/23/16 Sevelamer Carbonate (Renvela) 800 Mg Tablet, 800 MG ORAL THREE TIMES A DAY for 30 Days, TAB Prov:ZARRABI,MIRALI 09/23/16 Reported Medications Sildenafil Citrate (SILDENAFIL) 20 Mg Tablet, 20 MG ORAL TID, TAB 0 Refills 11/11/16 Sevelamer Carbonate* (RENVELA*) 0.8 Gm Powd.pack, 800 MG ORAL THREE TIMES A DAY , PACK 11/11/16 Vit B Cmplx 3/Fa/Vit C/Biotin (ALEJANDRA-HALLE RX TABLET) 1 Each Tablet, 1 EACH PO DAILY, TAB 11/11/16 Gabapentin* (GABAPENTIN*) 600 Mg Tablet, 600 MG ORAL BID, TAB 11/11/16 Furosemide* (LASIX*) 40 Mg Tablet, 40 MG ORAL THREE TIMES A DAY, TAB 11/11/16 Epoetin Santos (Epogen) 4,000 Unit/1 Ml Vial, 5000 UNIT SUBQ 3XW, VIAL 11/11/16 Cranberry Extract (Cranberry) 500 Mg Tablet, 425 MG PO DAILY, TAB 11/11/16 Calcium Carbonate (CALCIUM CARBONATE) 500 Mg Tablet, 500 MG PO BID, TAB 11/11/16 Albuterol Sulfate* (ALBUTEROL SULFATE HHN*) 2.5 Mg/3 Ml Vial.neb, 3 ML INH EVERY 2 HOURS Y for Shortness of Breath, EA 11/11/16 Acetaminophen* (ACETAMINOPHEN*) 160 Mg/5 Ml Solution, 650 MG ORAL Q4HR Y for Fever/Headache/Mild Pain, ML 11/11/16 Acetaminophen* (ACETAMINOPHEN 325MG TABLET*) 325 Mg Tablet, 650 MG ORAL Q4H Y for Mild Pain/Temp > 100.5, TAB 10/16/16 Ipratropium/Albuterol Sulfate (DuoNeb 0.5-3(2.5)mg/3ml) 3 Ml Ampul.neb, 3 ML HHN EVERY 2 HOURS, EA 10/16/16 Nutritional Supplement (HI-SWAPNA) 1,000 Ml Liquid, 1000 ML PO TID, ML 10/01/16 Folic Acid/Vitamin B Comp W-C (ALEJANDRA-HALLE TABLET) 0.8 Mg Tablet, 0.8 MG PO DAILY , TAB 10/01/16 Cranberry Extract (CRANBERRY) 200 Mg Capsule, 200 MG PO DAILY, CAP 10/01/16 Ipratropium/Albuterol Sulfate (DuoNeb 0.5-3(2.5)mg/3ml) 3 Ml Ampul.neb, 3 ML HHN Q6HR Y for Shortness of Breath, EA 10/01/16 Acetaminophen* (ACETAMINOPHEN*) 160 Mg/5 Ml Solution, 650 MG ORAL Q4HR Y for Fever/Headache/Mild Pain, ML 10/01/16 Prednisone* (PREDNISONE*) 10 Mg Tablet, 10 MG ORAL DAILY, #10 TAB 0 Refills 04/06/16 Pravastatin Sod* (PRAVASTATIN SOD*) 20 Mg Tablet, 20 MG ORAL BEDTIME, TAB 04/06/16 Polyethylene Glycol 3350* (MIRALAX*) 17 Gm Powd.pack, 17 GM ORAL DAILY, PACKET 04/06/16 Pantoprazole (PANTOPRAZOLE) 20 Mg Tablet.dr, 40 MG ORAL DAILY, #10 TAB 0 Refills 04/06/16 Lidocaine (Lidocaine) 1 Each Adh..patch, 700 MG TP EVERY 24 HOURS, PATCH 04/06/16 Letrozole (Femara) 2.5 Mg Tablet, 2.5 MG ORAL DAILY, #10 TAB 0 Refills 04/06/16 Lactobacillus Acidophilus (PROBIOTIC) 1 Each Capsule, 1 EACH PO DAILY, CAP 04/06/16 Gabapentin* (GABAPENTIN*) 600 Mg Tablet, 600 MG ORAL TWICE A DAY, TAB 04/06/16 Furosemide* (LASIX*) 40 Mg Tablet, 20 MG ORAL TWICE A DAY, TAB 0 Refills 04/06/16 Folic Acid* (FOLIC ACID*) 1 Mg Tablet, 1 MG ORAL DAILY, TAB 04/06/16 Fluticasone Propionate* (FLUTICASONE PROPIONATE*) 16 Gm [place].susp, 1 SPRAY NASAL DAILY, EA 04/06/16 Docusate Sodium* (DOCUSATE SODIUM*) 100 Mg Capsule, 100 MG ORAL TWICE A DAY, CAP 04/06/16 Cyanocobalamin (Vitamin B-12)* (VITAMIN B-12*) 500 Mcg Tablet, 3000 MCG ORAL DAILY, #30 TAB 0 Refills 04/06/16 Calcium Carbonate (Calcium Carbonate) 500 Mg Tablet, 1250 MG ORAL BID, TAB 04/06/16 Calcitriol (Calcitriol) 0.25 Mcg Capsule, 0.25 MCG ORAL DAILY, CAP 04/06/16 Apixaban (ELIQUIS) 2.5 Mg Tablet, 2.5 MG PO BID, TAB 04/06/16 Allergies: Coded Allergies: AMOXICILLIN (Verified Allergy, Mild, RASH, 09/30/16) PENICILLINS (Unverified Allergy, Unknown, 09/30/16) GI: Plan Plan The patient was seen and examined at bedside and all new and available data was reviewed in the patients chart. I agree with the above findings, impression and plan. (Patient seen earlier today. Signature stamp does not reflect patient encounter time.). - MD Whit [facility] Tj Lee Nov 29, 2016 13:21 RUDDY RODRIGUEZ Nov 30, 2016 15:16
--- NOTE | 2016-11-29 19:17 | General Progress Note ---
Assessment/Plan Assessment/Plan This is a 76-year-old, morbidly obese female, admitted with anasarca and cellulitis of the lower leg. The patient was admitted to the directr observation unit on the monitor with the following medical problems. now transfered to icu as of 11-14-16, co of pruritis 1. Anasarca. She appears to be markedly swollen. She will need diuresis. Place the patient on Lasix 20 mg intravenous for now q.12 hours. Cardiology and Pulmonary on the case. We will follow orders. Check laboratory studies daily. lasix drip was discontinued in am, HD started 2. Chronic hypercapnic respiratory failure. Continue with vent support per Pulmonary. will discuss with pulmonary regarding trach issues 3 anemia. s./p transfusion of PRBC Continue monitoring CBC daily. patient to start procrit per nephrology 4. Pulmonary hypertension. hold Eliquis 2.5 mg twice a day until trach is refitted 5. Chronic kidney disease. We will monitor BUN and creatinine. Gentle diuresis for now. Nephrology has been consulted. further workup per nephrology. avoid nephrotoxic agents HD to start soon 6. DVT prophylaxis. The patient is on Eliquis. The patient is Full 7. nutrition: patient didn't tolerate NGT placment, patient is now agreeable to PEG placement, all questions were answered including risks and benefits, patient agrees to proceed Code. 8. Alkalosis: on SIMV monitor labs 9. Generalized anxiety: ativna prn, counselled for 15min 10. constipation: prn enema, continue with colace and MiraLax had revesion of trach on 11-23-16 discussed with icu nurse benadryl 25 mg iv q 6 prn itching NPO still except ice chips continue HD per nephrology possible PEG tomorrow by Dr. Whitmore discussed with patient and nurse Subjective Date patient seen: Nov 29, 2016 ROS Limited/Unobtainable: Yes Allergies: Coded Allergies: AMOXICILLIN (Verified Allergy, Mild, RASH, 09/30/16) PENICILLINS (Unverified Allergy, Unknown, 09/30/16) Subjective patient placed on SIMV to control alkalosis, patient not tolerating well, Objective Last 24 Hour Vital Signs Date Time Temp Pulse Resp B/P (MAP) Pulse Ox O2 Delivery O2 Flow Rate FiO2 11/29/16 18:00 76 14 84/54 99 Mechanical Ventilator 50 11/29/16 17:00 68 14 79/43 99 Mechanical Ventilator 50 11/29/16 16:32 71 14 50 11/29/16 16:00 93 11/29/16 16:00 50 11/29/16 16:00 98.9 93 14 75/38 98 Mechanical Ventilator 50 11/29/16 15:00 115 19 75/45 99 Mechanical Ventilator 50 11/29/16 14:31 120 14 50 11/29/16 14:28 50 11/29/16 14:00 123 14 90/53 97 Mechanical Ventilator 50 11/29/16 13:20 117 20 50 11/29/16 13:00 138 26 121/79 92 Mechanical Ventilator 50 11/29/16 12:00 30 11/29/16 12:00 99.0 102 24 106/54 94 Mechanical Ventilator 30 11/29/16 12:00 99 11/29/16 11:00 64 25 94/66 95 Mechanical Ventilator 30 11/29/16 10:36 81 20 30 11/29/16 10:00 120 24 94/66 99 Mechanical Ventilator 30 11/29/16 09:38 84 20 30 11/29/16 09:00 91 25 104/56 95 Mechanical Ventilator 50 11/29/16 09:00 73 20 50 11/29/16 08:46 Mechanical Ventilator 40 11/29/16 08:00 98.8 59 23 101/47 99 Mechanical Ventilator 100 11/29/16 08:00 62 11/29/16 08:00 40 11/29/16 07:00 73 18 97/53 99 Mechanical Ventilator 40 11/29/16 06:32 72 20 100 11/29/16 06:00 69 18 96/62 99 Mechanical Ventilator 40 11/29/16 05:27 71 20 40 11/29/16 05:00 67 18 99/51 99 Mechanical Ventilator 40 11/29/16 05:00 Mechanical Ventilator 40 11/29/16 04:00 98.9 57 19 102/51 99 Mechanical Ventilator 40 11/29/16 04:00 40 11/29/16 04:00 58 11/29/16 03:20 69 20 40 11/29/16 03:00 58 18 100/41 99 Mechanical Ventilator 40 11/29/16 02:00 59 18 97/42 99 Mechanical Ventilator 40 11/29/16 01:00 61 18 118/61 97 Mechanical Ventilator 40 11/29/16 00:48 63 20 40 11/29/16 00:00 65 11/29/16 00:00 98.0 59 18 99/48 97 Mechanical Ventilator 40 11/29/16 00:00 40 11/28/16 23:10 63 20 40 11/28/16 23:00 67 18 103/46 99 Mechanical Ventilator 40 11/28/16 22:00 63 18 106/54 99 Mechanical Ventilator 40 11/28/16 21:00 64 18 100/49 96 Mechanical Ventilator 40 11/28/16 20:52 63 20 40 11/28/16 20:00 98.9 59 19 89/37 99 Mechanical Ventilator 40 11/28/16 20:00 40 11/28/16 20:00 56 Intake and Output 11/29/16 11/30/16 19:00 07:00 Output Total 3275 ml Balance -3275 ml Output Urine Total 175 ml Hemodialysis UF 3100 ml Laboratory Tests 11/29/16 04:00: White Blood Count 8.2, Red Blood Count 2.79L, Hemoglobin 8.5L, Hematocrit 26.8L , Mean Corpuscular Volume 96, Mean Corpuscular Hemoglobin 30.5, Mean Corpuscular Hemoglobin Concent 31.7L, Red Cell Distribution Width 18.7H, Platelet Count 168, Mean Platelet Volume 5.6L, Neutrophils (%) (Auto) 68.8, Lymphocytes (%) (Auto) 15.5L, Monocytes (%) (Auto) 11.8H, Eosinophils (%) (Auto ) 3.1H, Basophils (%) (Auto) 0.8, Sodium Level 144, Potassium Level 3.2L, Chloride Level 103, Carbon Dioxide Level 32, Anion Gap 10, Blood Urea Nitrogen 29H, Creatinine 3.3H, Estimat Glomerular Filtration Rate , Glucose Level 83, Calcium Level 8.4L, Phosphorus Level 2.7, Magnesium Level 1.9, Total Bilirubin 1.5H, Direct Bilirubin 0.6H, Aspartate Amino Transf (AST/SGOT) 13L, Alanine Aminotransferase (ALT/SGPT) < 6L, Alkaline Phosphatase 56, Total Protein 6.7, Albumin 2.0L, Globulin 4.7, Albumin/Globulin Ratio 0.4L 11/29/16 08:41: Arterial Blood pH 7.682*H, Arterial Blood Partial Pressure CO2 26.2L, Arterial Blood Partial Pressure O2 227.5H, Arterial Blood HCO3 30.4H, Arterial Blood Oxygen Saturation 99.0H, Arterial Blood Base Excess 10.9, Mike Test Positive 11/29/16 12:30: Prothrombin Time 15.4H, Prothromb Time International Ratio 1.5H Height (Feet): 5 Height (Inches): 5.00 Weight (Pounds): 372 General Appearance: mild distress, morbidly obese EENT: PERRL/EOMI, pharynx normal Neck: non-tender, supple Cardiovascular: normal rate, regular rhythm, no gallop/murmur, no JVD Respiratory/Chest: decreased breath sounds Abdomen: distended Extremities: swelling Edema: 3+ Arm (L), 3+ Arm (R), 4+ Leg (L), 4+ Leg (R), 4+ Pedal (L), 4+ Pedal ( R), 4+ Generalized Edema: severe edema 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
[2016-11-29] MEDS ORDERED: Fleet's Mineral Oil Enema RECTAL ONE (20:00)
--- NOTE | 2016-11-29 20:39 | Cardiology Progress Note ---
Assessment/Plan Assessment/Plan 1. Permanent atrial fibrillation. 2. Chronic respiratory failure, on a mechanical ventilator. 3. Cor pulmonale. 4. Pulmonary hypertension. 5. Acute renal failure, now on dialysis. 6. Anemia. 7. Significant edema. 8. Hypoalbuminemia. bp now low sig edema still on dialysisi on vent anticoagualtion for stroke prevention when no contraindication stool ob orderd no results yet Subjective Cardiovascular: Denies: chest pain Respiratory: Reports: shortness of breath Objective Last 24 Hour Vital Signs Date Time Temp Pulse Resp B/P (MAP) Pulse Ox O2 Delivery O2 Flow Rate FiO2 11/29/16 19:29 91 14 50 11/29/16 19:00 81 23 102/60 97 Mechanical Ventilator 50 11/29/16 18:00 76 14 84/54 99 Mechanical Ventilator 50 11/29/16 17:00 68 14 79/43 99 Mechanical Ventilator 50 11/29/16 16:32 71 14 50 11/29/16 16:00 93 11/29/16 16:00 50 11/29/16 16:00 98.9 93 14 75/38 98 Mechanical Ventilator 50 11/29/16 15:00 115 19 75/45 99 Mechanical Ventilator 50 11/29/16 14:31 120 14 50 11/29/16 14:28 50 11/29/16 14:00 123 14 90/53 97 Mechanical Ventilator 50 11/29/16 13:20 117 20 50 11/29/16 13:00 138 26 121/79 92 Mechanical Ventilator 50 11/29/16 12:00 30 11/29/16 12:00 99.0 102 24 106/54 94 Mechanical Ventilator 30 11/29/16 12:00 99 11/29/16 11:00 64 25 94/66 95 Mechanical Ventilator 30 11/29/16 10:36 81 20 30 11/29/16 10:00 120 24 94/66 99 Mechanical Ventilator 30 11/29/16 09:38 84 20 30 11/29/16 09:00 91 25 104/56 95 Mechanical Ventilator 50 11/29/16 09:00 73 20 50 11/29/16 08:46 Mechanical Ventilator 40 11/29/16 08:00 98.8 59 23 101/47 99 Mechanical Ventilator 100 11/29/16 08:00 62 11/29/16 08:00 40 11/29/16 07:00 73 18 97/53 99 Mechanical Ventilator 40 11/29/16 06:32 72 20 100 11/29/16 06:00 69 18 96/62 99 Mechanical Ventilator 40 11/29/16 05:27 71 20 40 11/29/16 05:00 67 18 99/51 99 Mechanical Ventilator 40 11/29/16 05:00 Mechanical Ventilator 40 11/29/16 04:00 98.9 57 19 102/51 99 Mechanical Ventilator 40 11/29/16 04:00 40 11/29/16 04:00 58 11/29/16 03:20 69 20 40 11/29/16 03:00 58 18 100/41 99 Mechanical Ventilator 40 11/29/16 02:00 59 18 97/42 99 Mechanical Ventilator 40 11/29/16 01:00 61 18 118/61 97 Mechanical Ventilator 40 11/29/16 00:48 63 20 40 11/29/16 00:00 65 11/29/16 00:00 98.0 59 18 99/48 97 Mechanical Ventilator 40 11/29/16 00:00 40 11/28/16 23:10 63 20 40 11/28/16 23:00 67 18 103/46 99 Mechanical Ventilator 40 11/28/16 22:00 63 18 106/54 99 Mechanical Ventilator 40 11/28/16 21:00 64 18 100/49 96 Mechanical Ventilator 40 11/28/16 20:52 63 20 40 General Appearance: alert, on vent, patient on isolation Neck: supple Cardiovascular: irregularly irregular Respiratory/Chest: rhonchi - bilaterally Abdomen: normal bowel sounds, non tender, soft Extremities: severe edema Intake and Output 11/29/16 11/30/16 19:00 07:00 Output Total 3275 ml Balance -3275 ml Output Urine Total 175 ml Hemodialysis UF 3100 ml Laboratory Tests Test 11/29/16 04:00 11/29/16 08:41 11/29/16 12:30 White Blood Count 8.2 K/UL (4.8-10.8) Red Blood Count 2.79 M/UL (4.20-5.40) L Hemoglobin 8.5 G/DL (12.0-16.0) L Hematocrit 26.8 % (37.0-47.0) L Mean Corpuscular Volume 96 FL (80-99) Mean Corpuscular Hemoglobin 30.5 PG (27.0-31.0) Mean Corpuscular Hemoglobin Concent 31.7 G/DL (32.0-36.0) L Red Cell Distribution Width 18.7 % (11.6-14.8) H Platelet Count 168 K/UL (150-450) Mean Platelet Volume 5.6 FL (6.5-10.1) L Neutrophils (%) (Auto) 68.8 % (45.0-75.0) Lymphocytes (%) (Auto) 15.5 % (20.0-45.0) L Monocytes (%) (Auto) 11.8 % (1.0-10.0) H Eosinophils (%) (Auto) 3.1 % (0.0-3.0) H Basophils (%) (Auto) 0.8 % (0.0-2.0) Sodium Level 144 MMOL/L (136-145) Potassium Level 3.2 MMOL/L (3.5-5.1) L Chloride Level 103 MMOL/L (98-107) Carbon Dioxide Level 32 MMOL/L (21-32) Anion Gap 10 mmol/L (5-15) Blood Urea Nitrogen 29 mg/dL (7-18) H Creatinine 3.3 MG/DL (0.55-1.30) H Estimat Glomerular Filtration Rate mL/min (>60) Glucose Level 83 MG/DL (74-106) Calcium Level 8.4 MG/DL (8.5-10.1) L Phosphorus Level 2.7 MG/DL (2.5-4.9) Magnesium Level 1.9 MG/DL (1.8-2.4) Total Bilirubin 1.5 MG/DL (0.2-1.0) H Direct Bilirubin 0.6 MG/DL (0.0-0.3) H Aspartate Amino Transf (AST/SGOT) 13 U/L (15-37) L Alanine Aminotransferase (ALT/SGPT) < 6 U/L (12-78) L Alkaline Phosphatase 56 U/L (46-116) Total Protein 6.7 G/DL (6.4-8.2) Albumin 2.0 G/DL (3.4-5.0) L Globulin 4.7 g/dL Albumin/Globulin Ratio 0.4 (1.0-2.7) L Arterial Blood pH 7.682 (7.350-7.450) Arterial Blood Partial Pressure CO2 26.2 mmHg (35.0-45.0) L Arterial Blood Partial Pressure O2 227.5 mmHg (75.0-100.0) H Arterial Blood HCO3 30.4 mmol/L (22.0-26.0) H Arterial Blood Oxygen Saturation 99.0 % (92.0-98.0) H Arterial Blood Base Excess 10.9 Mike Test Positive Prothrombin Time 15.4 SEC (9.30-11.50) H Prothromb Time International Ratio 1.5 (0.9-1.1) H BRIANA TELLES Nov 29, 2016 20:39
[2016-11-29] MEDS: Dyna-Hex 2% Top Sol 2oz TOPIC SCH (20:48)
[2016-11-29] MEDS: Epogen (for non ESRD use) SUBQ SCH (22:05)
--- NOTE | 2016-11-29 22:25 | General Progress Note ---
Assessment/Plan Assessment/Plan ASSESSMENT/RECS: # Coagulopathy 2/2 sepsis --> INR improving #. Anemia secondary to chronic disease. Continue to closely monitor. Work up reviewed --> s/p transfusion. watch counts, transfuse if hgb is below 8 #. Anemia of kidney disease. Nephrology service following #. PEG tube placement, planned for tomorrow #. Chronic ventilator dependent #. Permanent atrial fibrillation. #. Cellulitis and chronic lymphedema of the bilateral lower extremities. Continue to monitor. On abx per id service #. Congestive heart failure. Subjective Constitutional: Reports: weakness HEENT: Reports: no symptoms Cardiovascular: Reports: no symptoms Respiratory: Reports: no symptoms Gastrointestinal/Abdominal: Reports: no symptoms Genitourinary: Reports: no symptoms Neurologic/Psychiatric: Reports: no symptoms Endocrine: Reports: no symptoms Hematologic/Lymphatic: Reports: no symptoms Allergies: Coded Allergies: AMOXICILLIN (Verified Allergy, Mild, RASH, 09/30/16) PENICILLINS (Unverified Allergy, Unknown, 09/30/16) Subjective has leg pain and swelling Objective Last 24 Hour Vital Signs Date Time Temp Pulse Resp B/P (MAP) Pulse Ox O2 Delivery O2 Flow Rate FiO2 11/29/16 22:00 98 23 90/44 97 Mechanical Ventilator 50 11/29/16 21:00 99 14 94/57 99 Mechanical Ventilator 50 11/29/16 20:42 90 14 50 11/29/16 20:00 99.0 99 14 94/57 98 Mechanical Ventilator 50 11/29/16 20:00 50 11/29/16 19:29 91 14 50 11/29/16 19:00 81 23 102/60 97 Mechanical Ventilator 50 11/29/16 18:00 76 14 84/54 99 Mechanical Ventilator 50 11/29/16 17:00 68 14 79/43 99 Mechanical Ventilator 50 11/29/16 16:32 71 14 50 11/29/16 16:00 93 11/29/16 16:00 50 11/29/16 16:00 98.9 93 14 75/38 98 Mechanical Ventilator 50 11/29/16 15:00 115 19 75/45 99 Mechanical Ventilator 50 11/29/16 14:31 120 14 50 11/29/16 14:28 50 11/29/16 14:00 123 14 90/53 97 Mechanical Ventilator 50 11/29/16 13:20 117 20 50 11/29/16 13:00 138 26 121/79 92 Mechanical Ventilator 50 11/29/16 12:00 30 11/29/16 12:00 99.0 102 24 106/54 94 Mechanical Ventilator 30 11/29/16 12:00 99 11/29/16 11:00 64 25 94/66 95 Mechanical Ventilator 30 11/29/16 10:36 81 20 30 11/29/16 10:00 120 24 94/66 99 Mechanical Ventilator 30 11/29/16 09:38 84 20 30 11/29/16 09:00 91 25 104/56 95 Mechanical Ventilator 50 11/29/16 09:00 73 20 50 11/29/16 08:46 Mechanical Ventilator 40 11/29/16 08:00 98.8 59 23 101/47 99 Mechanical Ventilator 100 11/29/16 08:00 62 11/29/16 08:00 40 11/29/16 07:00 73 18 97/53 99 Mechanical Ventilator 40 11/29/16 06:32 72 20 100 11/29/16 06:00 69 18 96/62 99 Mechanical Ventilator 40 11/29/16 05:27 71 20 40 11/29/16 05:00 67 18 99/51 99 Mechanical Ventilator 40 11/29/16 05:00 Mechanical Ventilator 40 11/29/16 04:00 98.9 57 19 102/51 99 Mechanical Ventilator 40 11/29/16 04:00 40 11/29/16 04:00 58 11/29/16 03:20 69 20 40 11/29/16 03:00 58 18 100/41 99 Mechanical Ventilator 40 11/29/16 02:00 59 18 97/42 99 Mechanical Ventilator 40 11/29/16 01:00 61 18 118/61 97 Mechanical Ventilator 40 11/29/16 00:48 63 20 40 11/29/16 00:00 65 11/29/16 00:00 98.0 59 18 99/48 97 Mechanical Ventilator 40 11/29/16 00:00 40 11/28/16 23:10 63 20 40 11/28/16 23:00 67 18 103/46 99 Mechanical Ventilator 40 Intake and Output 11/29/16 11/30/16 19:00 07:00 Output Total 3275 ml 15 ml Balance -3275 ml -15 ml Output Urine Total 175 ml 15 ml Hemodialysis UF 3100 ml Laboratory Tests 11/29/16 04:00: White Blood Count 8.2, Red Blood Count 2.79L, Hemoglobin 8.5L, Hematocrit 26.8L , Mean Corpuscular Volume 96, Mean Corpuscular Hemoglobin 30.5, Mean Corpuscular Hemoglobin Concent 31.7L, Red Cell Distribution Width 18.7H, Platelet Count 168, Mean Platelet Volume 5.6L, Neutrophils (%) (Auto) 68.8, Lymphocytes (%) (Auto) 15.5L, Monocytes (%) (Auto) 11.8H, Eosinophils (%) (Auto ) 3.1H, Basophils (%) (Auto) 0.8, Sodium Level 144, Potassium Level 3.2L, Chloride Level 103, Carbon Dioxide Level 32, Anion Gap 10, Blood Urea Nitrogen 29H, Creatinine 3.3H, Estimat Glomerular Filtration Rate , Glucose Level 83, Calcium Level 8.4L, Phosphorus Level 2.7, Magnesium Level 1.9, Total Bilirubin 1.5H, Direct Bilirubin 0.6H, Aspartate Amino Transf (AST/SGOT) 13L, Alanine Aminotransferase (ALT/SGPT) < 6L, Alkaline Phosphatase 56, Total Protein 6.7, Albumin 2.0L, Globulin 4.7, Albumin/Globulin Ratio 0.4L 11/29/16 08:41: Arterial Blood pH 7.682*H, Arterial Blood Partial Pressure CO2 26.2L, Arterial Blood Partial Pressure O2 227.5H, Arterial Blood HCO3 30.4H, Arterial Blood Oxygen Saturation 99.0H, Arterial Blood Base Excess 10.9, Mike Test Positive 11/29/16 12:30: Prothrombin Time 15.4H, Prothromb Time International Ratio 1.5H Height (Feet): 5 Height (Inches): 5.00 Weight (Pounds): 372 General Appearance: no apparent distress EENT: normal ENT inspection Neck: normal alignment Cardiovascular: normal rate Skin: warm/dry NAIDA MANJARREZ Nov 29, 2016 22:25
[2016-11-30] VITALS (24 sets, daily range): BP systolic 75–102; BP diastolic 34–64
[2016-11-30] MEDS: DiphenhydrAMINE 50mg/ml Inj IVP PRN (02:11)
[2016-11-30 05:58] LABS: EOSINOPHILS % (AUTO) 1.5 % (0.0-3.0); LYMPHOCYTES % (AUTO) 13.7 % (20.0-45.0); MEAN CORPUSCULAR HEMOGLOBIN 31.5 PG (27.0-31.0); MEAN CORPUSCULAR HGB CONC 31.7 G/DL (32.0-36.0); MEAN CORPUSCULAR VOLUME 99 FL (80-99); MEAN PLATELET VOLUME 6.2 FL (6.5-10.1); MONOCYTES % (AUTO) 10.1 % (1.0-10.0); NEUTROPHILS % (AUTO) 73.6 % (45.0-75.0); PLATELET COUNT 151 K/UL (150-450); RED BLOOD COUNT 2.86 M/UL (4.20-5.40); RED CELL DISTRIBUTION WIDTH 19.4 % (11.6-14.8); WHITE BLOOD COUNT 7.6 K/UL (4.8-10.8)
[2016-11-30 06:06] LABS: INR 1.4 (0.9-1.1); PROTHROMBIN TIME 14.9 SEC (9.30-11.50)
[2016-11-30 06:27] LABS: CRP QUANT 17.8 mg/dL (0.00-0.90); URIC ACID 4.5 MG/DL (2.6-7.2)
[2016-11-30 06:48] LABS: ALBUMIN/GLOBULIN RATIO 0.4 (1.0-2.7); ANION GAP 10 mmol/L (5-15); ASPARTATE AMINO TRANSFERASE 16 U/L (15-37); CALCIUM 8.3 MG/DL (8.5-10.1); CARBON DIOXIDE 32 MMOL/L (21-32); CHLORIDE 105 MMOL/L (98-107); CREATININE 3.2 MG/DL (0.55-1.30); PHOSPHORUS 3.6 MG/DL (2.5-4.9); POTASSIUM 3.7 MMOL/L (3.5-5.1); SODIUM 147 MMOL/L (136-145); TOTAL PROTEIN 7.5 G/DL (6.4-8.2)
[2016-11-30 06:55] LABS: ALANINE AMINOTRANSFERASE < 6 U/L (12-78)
[2016-11-30 06:56] LABS: BILIRUBIN,DIRECT 0.5 MG/DL (0.0-0.3)
--- NOTE | 2016-11-30 07:33 | Anethesia Preoperative Eval ---
Anesthesia Pre-op PMH/ROS General Date of Evaluation: Nov 30, 2016 Time of Evaluation: 06:31 Anesthesiologist: lauren ASA Score: ASA 4 Mallampati Score Class I : Soft palate, uvula, fauces, pillars visible Class II: Soft palate, uvula, fauces visible Class III: Soft palate, base of uvula visible Class IV: Only hard plate visible Mallampati Classification: Class II Surgeon: leanna Diagnosis: dyspgia/ vent dependent Surgical Procedure: egd/peg Allergies: Coded Allergies: AMOXICILLIN (Verified Allergy, Mild, RASH, 09/30/16) PENICILLINS (Unverified Allergy, Unknown, 09/30/16) Anesthesia Pre-op Phys. Exam Physician Exam Last Vital Signs Date Time Temp Pulse Resp B/P (MAP) Pulse Ox O2 Delivery O2 Flow Rate FiO2 11/30/16 06:00 99 17 78/58 93 Mechanical Ventilator 50 11/30/16 04:00 98.5 Airway Exam Mallampati Score: Class II Anesthesia Pre-op A/P Labs Hematology Test 11/30/16 04:00 White Blood Count 7.6 K/UL (4.8-10.8) Red Blood Count 2.86 M/UL (4.20-5.40) L Hemoglobin 9.0 G/DL (12.0-16.0) L Hematocrit 28.4 % (37.0-47.0) L Mean Corpuscular Volume 99 FL (80-99) Mean Corpuscular Hemoglobin 31.5 PG (27.0-31.0) H Mean Corpuscular Hemoglobin Concent 31.7 G/DL (32.0-36.0) L Red Cell Distribution Width 19.4 % (11.6-14.8) H Platelet Count 151 K/UL (150-450) Mean Platelet Volume 6.2 FL (6.5-10.1) L Neutrophils (%) (Auto) 73.6 % (45.0-75.0) Lymphocytes (%) (Auto) 13.7 % (20.0-45.0) L Monocytes (%) (Auto) 10.1 % (1.0-10.0) H Eosinophils (%) (Auto) 1.5 % (0.0-3.0) Basophils (%) (Auto) 1.0 % (0.0-2.0) Coagulation Test 11/29/16 12:30 11/30/16 04:00 Prothrombin Time 15.4 SEC (9.30-11.50) H 14.9 SEC (9.30-11.50) H Prothromb Time International Ratio 1.5 (0.9-1.1) H 1.4 (0.9-1.1) H Activated Partial Thromboplast Time 33 SEC (23-33) Chemistry Test 11/30/16 04:00 Sodium Level Pending Potassium Level Pending Chloride Level Pending Carbon Dioxide Level Pending Blood Urea Nitrogen Pending Creatinine Pending Estimat Glomerular Filtration Rate Pending Glucose Level Pending Uric Acid 4.5 MG/DL (2.6-7.2) Calcium Level Pending Phosphorus Level Pending Magnesium Level Pending Total Bilirubin Pending Aspartate Amino Transf (AST/SGOT) Pending Alanine Aminotransferase (ALT/SGPT) Pending Alkaline Phosphatase Pending C-Reactive Protein, Quantitative 17.8 mg/dL (0.00-0.90) H Pro-B-Type Natriuretic Peptide 38606 pg/mL (0-125) H Total Protein Pending Albumin Pending Globulin Pending Risk Assessment & Plan Assessment: asa4 Plan: patient status is not optimized at this time. case cancelled Status Change Before Surgery: No Pre-Antibiotics Drug: BOOKER Muñiz Nov 30, 2016 07:33
[2016-11-30] MEDS: Miralax 17gm pkt ORAL SCH (09:00)
[2016-11-30] MEDS: Midodrine 10mg tab ORAL SCH ×3 (09:24→17:19)
[2016-11-30] MEDS: Pantoprazole Inj IVP SCH (09:24)
[2016-11-30] MEDS: Revatio 20mg tab ORAL SCH ×3 (09:24→17:20)
[2016-11-30] MEDS: Docusate 100mg cap ORAL SCH ×2 (09:24→17:19)
[2016-11-30 09:25] LABS: ABG ALLEN TEST POSITIVE; ABG BASE EXCESS 4.2; ABG PCO2 54.2 mmHg (35.0-45.0)
--- NOTE | 2016-11-30 09:35 | Infectious Diseases Prog Note ---
Assessment/Plan Assessment/Plan Abx: IV Vancomycin 11/11-11/12; 11/17-11/26 IV Cefepime 11/11-11/12 IV Ancef 11/12- Flagyl x1 11/11 Assesment: Cellulitis BLE and R arm- in the setting of chronic leg edema/venous stasis- Limited Venous duplex BLE (non diagnostic), no DVT R arm; mild improved; Main component is of venous stasis so erythema would not completely resolve with abx -Bcx Neg Anasarca/ bilateral leg lymphedema -CXR 11/19: Interstitial edema/CHF unchanged Afebrile, no leukocytosis REnal insufficiency VRE colonzied COPD Diastolic CHF chronic resp failure, vent/trach dependent, Gtbue, pAfib, pleural effusion, MINA , CKD, GERD, morbid obesity, [place] resident Plan: -Continue Ancef for cellulitis (abx # ) -s/p 10 d IV Vancomycin 11/26 -extremity elevation -edema management -Monitor CBC/BMP, temperatures - vent support, trach care, aspiration precautions Thank you for this consultation. Will continue to follow along with you. 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 RN. Subjective Allergies: Coded Allergies: AMOXICILLIN (Verified Allergy, Mild, RASH, 09/30/16) PENICILLINS (Unverified Allergy, Unknown, 09/30/16) Subjective afebrile no leukocytosis remains in ICU Objective Vital Signs Last 24 Hour Vital Signs Date Time Temp Pulse Resp B/P (MAP) Pulse Ox O2 Delivery O2 Flow Rate FiO2 11/30/16 08:42 11 16 100 11/30/16 08:00 98.8 105 19 92/52 97 Mechanical Ventilator 50 11/30/16 08:00 50 11/30/16 08:00 106 11/30/16 07:00 102 17 83/64 93 Mechanical Ventilator 50 11/30/16 06:52 96 15 100 11/30/16 06:00 99 17 78/58 93 Mechanical Ventilator 50 11/30/16 05:29 102 17 50 11/30/16 05:00 113 23 87/47 99 Mechanical Ventilator 50 11/30/16 04:00 98.5 99 16 94/57 98 Mechanical Ventilator 50 11/30/16 04:00 50 11/30/16 04:00 112 11/30/16 03:00 114 23 90/43 97 Mechanical Ventilator 50 11/30/16 02:59 122 21 50 11/30/16 02:00 101 23 98/52 97 Mechanical Ventilator 50 11/30/16 01:24 102 20 50 11/30/16 01:00 106 23 96/49 97 Mechanical Ventilator 50 11/30/16 00:00 75 11/30/16 00:00 50 11/30/16 00:00 98.9 84 14 92/46 98 Mechanical Ventilator 50 11/29/16 23:00 82 23 101/53 97 Mechanical Ventilator 50 11/29/16 22:44 76 14 Mechanical Ventilator 50 11/29/16 22:43 76 14 50 11/29/16 22:00 98 23 90/44 97 Mechanical Ventilator 50 11/29/16 21:00 99 14 94/57 99 Mechanical Ventilator 50 11/29/16 20:42 90 14 50 11/29/16 20:00 99.0 99 14 94/57 98 Mechanical Ventilator 50 11/29/16 20:00 87 11/29/16 20:00 50 11/29/16 19:29 91 14 50 11/29/16 19:00 81 23 102/60 97 Mechanical Ventilator 50 11/29/16 18:00 76 14 84/54 99 Mechanical Ventilator 50 11/29/16 17:00 68 14 79/43 99 Mechanical Ventilator 50 11/29/16 16:32 71 14 50 11/29/16 16:00 93 11/29/16 16:00 50 11/29/16 16:00 98.9 93 14 75/38 98 Mechanical Ventilator 50 11/29/16 15:00 115 19 75/45 99 Mechanical Ventilator 50 11/29/16 14:31 120 14 50 11/29/16 14:28 50 11/29/16 14:00 123 14 90/53 97 Mechanical Ventilator 50 11/29/16 13:20 117 20 50 11/29/16 13:00 138 26 121/79 92 Mechanical Ventilator 50 11/29/16 12:00 30 11/29/16 12:00 99.0 102 24 106/54 94 Mechanical Ventilator 30 11/29/16 12:00 99 11/29/16 11:00 64 25 94/66 95 Mechanical Ventilator 30 11/29/16 10:36 81 20 30 11/29/16 10:00 120 24 94/66 99 Mechanical Ventilator 30 11/29/16 09:38 84 20 30 Height (Feet): 5 Height (Inches): 4.00 Weight (Pounds): 372 Objective General Appearance: WD/WN HEENT: trach in palce, Respiratory/Chest: chest wall non-tender, lungs clear Cardiovascular/Chest: normal peripheral pulses, normal rate Abdomen: normal bowel sounds, non tender Ext: anasarca; R > L LE swelling, both legs with blanching erythema anteriorly from distal leg up to below knee, +warmth, non TTP, no drainage; R arm swelling, erythematous,. background changes of chronic lymphedema on b/l legs; erythema and swelling improved reviewed Laboratory Tests Test 11/29/16 12:30 11/30/16 04:00 11/30/16 09:00 Prothrombin Time 15.4 SEC (9.30-11.50) H 14.9 SEC (9.30-11.50) H Prothromb Time International Ratio 1.5 (0.9-1.1) H 1.4 (0.9-1.1) H White Blood Count 7.6 K/UL (4.8-10.8) Red Blood Count 2.86 M/UL (4.20-5.40) L Hemoglobin 9.0 G/DL (12.0-16.0) L Hematocrit 28.4 % (37.0-47.0) L Mean Corpuscular Volume 99 FL (80-99) Mean Corpuscular Hemoglobin 31.5 PG (27.0-31.0) H Mean Corpuscular Hemoglobin Concent 31.7 G/DL (32.0-36.0) L Red Cell Distribution Width 19.4 % (11.6-14.8) H Platelet Count 151 K/UL (150-450) Mean Platelet Volume 6.2 FL (6.5-10.1) L Neutrophils (%) (Auto) 73.6 % (45.0-75.0) Lymphocytes (%) (Auto) 13.7 % (20.0-45.0) L Monocytes (%) (Auto) 10.1 % (1.0-10.0) H Eosinophils (%) (Auto) 1.5 % (0.0-3.0) Basophils (%) (Auto) 1.0 % (0.0-2.0) Activated Partial Thromboplast Time 33 SEC (23-33) Sodium Level 147 MMOL/L (136-145) H Potassium Level 3.7 MMOL/L (3.5-5.1) Chloride Level 105 MMOL/L (98-107) Carbon Dioxide Level 32 MMOL/L (21-32) Anion Gap 10 mmol/L (5-15) Blood Urea Nitrogen 26 mg/dL (7-18) H Creatinine 3.2 MG/DL (0.55-1.30) H Estimat Glomerular Filtration Rate mL/min (>60) Glucose Level 88 MG/DL (74-106) Uric Acid 4.5 MG/DL (2.6-7.2) Calcium Level 8.3 MG/DL (8.5-10.1) L Phosphorus Level 3.6 MG/DL (2.5-4.9) Magnesium Level 2.0 MG/DL (1.8-2.4) Total Bilirubin 1.1 MG/DL (0.2-1.0) H Direct Bilirubin 0.5 MG/DL (0.0-0.3) H Aspartate Amino Transf (AST/SGOT) 16 U/L (15-37) Alanine Aminotransferase (ALT/SGPT) < 6 U/L (12-78) L Alkaline Phosphatase 67 U/L (46-116) C-Reactive Protein, Quantitative 17.8 mg/dL (0.00-0.90) H Pro-B-Type Natriuretic Peptide 03473 pg/mL (0-125) H Total Protein 7.5 G/DL (6.4-8.2) Albumin 2.2 G/DL (3.4-5.0) L Globulin 5.3 g/dL Albumin/Globulin Ratio 0.4 (1.0-2.7) L Arterial Blood pH 7.368 (7.350-7.450) Arterial Blood Partial Pressure CO2 54.2 mmHg (35.0-45.0) H Arterial Blood Partial Pressure O2 84.8 mmHg (75.0-100.0) Arterial Blood HCO3 30.5 mmol/L (22.0-26.0) H Arterial Blood Oxygen Saturation 95.2 % (92.0-98.0) Arterial Blood Base Excess 4.2 Mike Test Positive Current Medications Medications (Trade) Dose Ordered Sig/Kalyn Route PRN Reason Start Time Stop Time Status Last Admin Dose Admin Acetaminophen (Tylenol) 650 mg Q4H PRN ORAL Mild Pain/Temp > 100.5 11/14/16 08:00 12/12/16 07:59 11/22/16 20:22 Allopurinol (Allopurinol) 300 mg DAILY ORAL 11/16/16 10:00 12/16/16 09:59 11/30/16 09:24 Chlorhexidine Gluconate (Marni-Hex 2%) 1 applic Q24H TOPIC 11/27/16 20:00 12/27/16 19:59 11/29/16 20:48 Diphenhydramine HCl (Benadryl) 25 mg Q6H PRN IVP Itching 11/19/16 20:15 12/19/16 20:14 11/30/16 02:11 Docusate Sodium (Colace) 100 mg TWICE A DAY ORAL 11/14/16 09:00 12/12/16 08:59 11/30/16 09:24 Epoetin Santos (Procrit (for non ESRD use)) 10,000 units TUE-TUE-TUE SUBQ 11/17/16 21:00 12/17/16 20:59 11/29/16 22:05 Folic Acid (Folate) 1 mg DAILY ORAL 11/14/16 09:00 12/12/16 08:59 11/30/16 09:24 Gabapentin (Neurontin) 600 mg BID ORAL 11/14/16 09:00 12/14/16 08:59 11/30/16 09:24 Lorazepam (Ativan 2mg/ml 1ml) 2 mg Q2H PRN IV For Anxiety 11/29/16 13:15 12/06/16 13:14 11/29/16 13:20 Midodrine (Pro-Amatine) 10 mg THREE TIMES A DAY ORAL 11/21/16 13:00 12/21/16 12:59 11/30/16 09:24 Pantoprazole (Protonix) 40 mg DAILY IVP 11/14/16 09:00 12/12/16 08:59 11/30/16 09:24 Polyethylene Glycol (Miralax) 17 gm DAILY ORAL 11/14/16 09:00 12/12/16 08:59 11/29/16 08:30 Pravastatin Sodium (Pravachol) 20 mg BEDTIME ORAL 11/14/16 21:00 12/12/16 20:59 11/29/16 20:48 Sildenafil Citrate (Revatio) 20 mg THREE TIMES A DAY ORAL 11/14/16 09:00 12/12/16 08:59 11/30/16 09:24 Danielle Guo M.D. Nov 30, 2016 09:35
--- NOTE | 2016-11-30 10:20 | Pulmonolgy Critical Care Note ---
Critical Care - Asmt/Plan Problems: (1) Acute and chronic respiratory failure (2) Anasarca (3) ATN (acute tubular necrosis) (4) Atrial fibrillation (5) Morbid obesity (6) Pickwickian syndrome Respiratory: monitor respiratory rate, adjust FIO2 Cardiac: continue pressors, continue to monitor HR/BP Renal: F/U I&O Infectious Disease: check cultures, continue antibiotics Gastrointestinal: continue feedings/current rate Endocrine: monitor blood sugar, check HgA1C, continue sliding scale insulin Hematologic: monitor H/H, transfuse if hgb<8.5 Neurologic: PRN Ativan, PRN Morphine, keep patient comfortable Affect: PRN ativan Prophylaxis: Protonix Notes Reviewed: cardio, renal 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: nurses, consultants, correctional counselor/case managermanager systems - Objective Last 24 Hour Vital Signs Date Time Temp Pulse Resp B/P (MAP) Pulse Ox O2 Delivery O2 Flow Rate FiO2 11/30/16 10:00 113 17 96/52 99 Mechanical Ventilator 50 11/30/16 09:00 109 17 102/50 98 Mechanical Ventilator 50 11/30/16 08:42 11 16 100 11/30/16 08:00 98.8 105 19 92/52 97 Mechanical Ventilator 50 11/30/16 08:00 50 11/30/16 08:00 106 11/30/16 07:00 102 17 83/64 93 Mechanical Ventilator 50 11/30/16 06:52 96 15 100 11/30/16 06:00 99 17 78/58 93 Mechanical Ventilator 50 11/30/16 05:29 102 17 50 11/30/16 05:00 113 23 87/47 99 Mechanical Ventilator 50 11/30/16 04:00 98.5 99 16 94/57 98 Mechanical Ventilator 50 11/30/16 04:00 50 11/30/16 04:00 112 11/30/16 03:00 114 23 90/43 97 Mechanical Ventilator 50 11/30/16 02:59 122 21 50 11/30/16 02:00 101 23 98/52 97 Mechanical Ventilator 50 11/30/16 01:24 102 20 50 11/30/16 01:00 106 23 96/49 97 Mechanical Ventilator 50 11/30/16 00:00 75 11/30/16 00:00 50 11/30/16 00:00 98.9 84 14 92/46 98 Mechanical Ventilator 50 11/29/16 23:00 82 23 101/53 97 Mechanical Ventilator 50 11/29/16 22:44 76 14 Mechanical Ventilator 50 11/29/16 22:43 76 14 50 11/29/16 22:00 98 23 90/44 97 Mechanical Ventilator 50 11/29/16 21:00 99 14 94/57 99 Mechanical Ventilator 50 11/29/16 20:42 90 14 50 11/29/16 20:00 99.0 99 14 94/57 98 Mechanical Ventilator 50 11/29/16 20:00 87 11/29/16 20:00 50 11/29/16 19:29 91 14 50 11/29/16 19:00 81 23 102/60 97 Mechanical Ventilator 50 11/29/16 18:00 76 14 84/54 99 Mechanical Ventilator 50 11/29/16 17:00 68 14 79/43 99 Mechanical Ventilator 50 11/29/16 16:32 71 14 50 11/29/16 16:00 93 11/29/16 16:00 50 11/29/16 16:00 98.9 93 14 75/38 98 Mechanical Ventilator 50 11/29/16 15:00 115 19 75/45 99 Mechanical Ventilator 50 11/29/16 14:31 120 14 50 11/29/16 14:28 50 11/29/16 14:00 123 14 90/53 97 Mechanical Ventilator 50 11/29/16 13:20 117 20 50 11/29/16 13:00 138 26 121/79 92 Mechanical Ventilator 50 11/29/16 12:00 30 11/29/16 12:00 99.0 102 24 106/54 94 Mechanical Ventilator 30 11/29/16 12:00 99 11/29/16 11:00 64 25 94/66 95 Mechanical Ventilator 30 11/29/16 10:36 81 20 30 Status: awake Condition: critical HEENT: atraumatic Neck: full ROM Lungs: clear Heart: HR/BP stable, HR/BP unstable Abdomen: soft Extremities: edema Decubiti: location, stage Critical Care - Subjective ROS Limited/Unobtainable: Yes ICU Day: 19 Interval Events: BP remains borderline, ENT will examine the trach tomorrow FI02: 50 Vent Support Breath Rate: 14 Vent Support Mode: AC Vent Tidal Volume: 600 Sputum Amount: Moderate PEEP: 5.0 PIP: 54 I&O: Intake and Output 11/30/16 12/01/16 19:00 07:00 Output Total 0 ml Balance 0 ml Output Urine Total 0 ml # Bowel Movements 1 CXR: no change ET-Tube: 6.0 ET Position: 15 Labs: Laboratory Tests Test 11/29/16 12:30 11/30/16 04:00 11/30/16 09:00 Prothrombin Time 15.4 SEC (9.30-11.50) H 14.9 SEC (9.30-11.50) H Prothromb Time International Ratio 1.5 (0.9-1.1) H 1.4 (0.9-1.1) H White Blood Count 7.6 K/UL (4.8-10.8) Red Blood Count 2.86 M/UL (4.20-5.40) L Hemoglobin 9.0 G/DL (12.0-16.0) L Hematocrit 28.4 % (37.0-47.0) L Mean Corpuscular Volume 99 FL (80-99) Mean Corpuscular Hemoglobin 31.5 PG (27.0-31.0) H Mean Corpuscular Hemoglobin Concent 31.7 G/DL (32.0-36.0) L Red Cell Distribution Width 19.4 % (11.6-14.8) H Platelet Count 151 K/UL (150-450) Mean Platelet Volume 6.2 FL (6.5-10.1) L Neutrophils (%) (Auto) 73.6 % (45.0-75.0) Lymphocytes (%) (Auto) 13.7 % (20.0-45.0) L Monocytes (%) (Auto) 10.1 % (1.0-10.0) H Eosinophils (%) (Auto) 1.5 % (0.0-3.0) Basophils (%) (Auto) 1.0 % (0.0-2.0) Activated Partial Thromboplast Time 33 SEC (23-33) Sodium Level 147 MMOL/L (136-145) H Potassium Level 3.7 MMOL/L (3.5-5.1) Chloride Level 105 MMOL/L (98-107) Carbon Dioxide Level 32 MMOL/L (21-32) Anion Gap 10 mmol/L (5-15) Blood Urea Nitrogen 26 mg/dL (7-18) H Creatinine 3.2 MG/DL (0.55-1.30) H Estimat Glomerular Filtration Rate mL/min (>60) Glucose Level 88 MG/DL (74-106) Uric Acid 4.5 MG/DL (2.6-7.2) Calcium Level 8.3 MG/DL (8.5-10.1) L Phosphorus Level 3.6 MG/DL (2.5-4.9) Magnesium Level 2.0 MG/DL (1.8-2.4) Total Bilirubin 1.1 MG/DL (0.2-1.0) H Direct Bilirubin 0.5 MG/DL (0.0-0.3) H Aspartate Amino Transf (AST/SGOT) 16 U/L (15-37) Alanine Aminotransferase (ALT/SGPT) < 6 U/L (12-78) L Alkaline Phosphatase 67 U/L (46-116) C-Reactive Protein, Quantitative 17.8 mg/dL (0.00-0.90) H Pro-B-Type Natriuretic Peptide 87806 pg/mL (0-125) H Total Protein 7.5 G/DL (6.4-8.2) Albumin 2.2 G/DL (3.4-5.0) L Globulin 5.3 g/dL Albumin/Globulin Ratio 0.4 (1.0-2.7) L Arterial Blood pH 7.368 (7.350-7.450) Arterial Blood Partial Pressure CO2 54.2 mmHg (35.0-45.0) H Arterial Blood Partial Pressure O2 84.8 mmHg (75.0-100.0) Arterial Blood HCO3 30.5 mmol/L (22.0-26.0) H Arterial Blood Oxygen Saturation 95.2 % (92.0-98.0) Arterial Blood Base Excess 4.2 Mike Test Positive ARASH MIRANDA Nov 30, 2016 10:20
--- NOTE | 2016-11-30 12:15 | General Progress Note ---
Assessment/Plan Status: stable Assessment/Plan Cellulitis BLE and R arm- in the setting of chronic leg edema- r/o DVT Anasarca/ bilateral leg lymphedema CKD- and acute renal failure - Acute respiratory failure s/p Trach Obese COPD , CHF, Diastolic MINA UTI Anemia GI Bleed, GI bleeding At Fib Pulm HTN h/o Low B12 plan: due PEG last HD 11/29 next 12/01 K supplement on EPOGEN 24 H urine collection in process: CrCl 6 Monitor renal parameters- optimize cardiac and pulm status avoid nephrotoxics- pulmonary support- transfuse as needed ? DC planning Subjective ROS Limited/Unobtainable: Yes Allergies: Coded Allergies: AMOXICILLIN (Verified Allergy, Mild, RASH, 09/30/16) PENICILLINS (Unverified Allergy, Unknown, 09/30/16) Objective Last 24 Hour Vital Signs Date Time Temp Pulse Resp B/P (MAP) Pulse Ox O2 Delivery O2 Flow Rate FiO2 11/30/16 11:00 105 18 92/41 100 Mechanical Ventilator 95 11/30/16 10:36 112 16 95 11/30/16 10:00 113 17 96/52 99 Mechanical Ventilator 50 11/30/16 09:00 109 17 102/50 98 Mechanical Ventilator 50 11/30/16 08:42 112 16 100 11/30/16 08:00 98.8 105 19 92/52 97 Mechanical Ventilator 50 11/30/16 08:00 50 11/30/16 08:00 106 11/30/16 07:00 102 17 83/64 93 Mechanical Ventilator 50 11/30/16 06:52 96 15 100 11/30/16 06:00 99 17 78/58 93 Mechanical Ventilator 50 11/30/16 05:29 102 17 50 11/30/16 05:00 113 23 87/47 99 Mechanical Ventilator 50 11/30/16 04:00 98.5 99 16 94/57 98 Mechanical Ventilator 50 11/30/16 04:00 50 11/30/16 04:00 112 11/30/16 03:00 114 23 90/43 97 Mechanical Ventilator 50 11/30/16 02:59 122 21 50 11/30/16 02:00 101 23 98/52 97 Mechanical Ventilator 50 11/30/16 01:24 102 20 50 11/30/16 01:00 106 23 96/49 97 Mechanical Ventilator 50 11/30/16 00:00 75 11/30/16 00:00 50 11/30/16 00:00 98.9 84 14 92/46 98 Mechanical Ventilator 50 11/29/16 23:00 82 23 101/53 97 Mechanical Ventilator 50 11/29/16 22:44 76 14 Mechanical Ventilator 50 11/29/16 22:43 76 14 50 11/29/16 22:00 98 23 90/44 97 Mechanical Ventilator 50 11/29/16 21:00 99 14 94/57 99 Mechanical Ventilator 50 11/29/16 20:42 90 14 50 11/29/16 20:00 99.0 99 14 94/57 98 Mechanical Ventilator 50 11/29/16 20:00 87 11/29/16 20:00 50 11/29/16 19:29 91 14 50 11/29/16 19:00 81 23 102/60 97 Mechanical Ventilator 50 11/29/16 18:00 76 14 84/54 99 Mechanical Ventilator 50 11/29/16 17:00 68 14 79/43 99 Mechanical Ventilator 50 11/29/16 16:32 71 14 50 11/29/16 16:00 93 11/29/16 16:00 50 11/29/16 16:00 98.9 93 14 75/38 98 Mechanical Ventilator 50 11/29/16 15:00 115 19 75/45 99 Mechanical Ventilator 50 11/29/16 14:31 120 14 50 11/29/16 14:28 50 11/29/16 14:00 123 14 90/53 97 Mechanical Ventilator 50 11/29/16 13:20 117 20 50 11/29/16 13:00 138 26 121/79 92 Mechanical Ventilator 50 Intake and Output 11/30/16 12/01/16 19:00 07:00 Output Total 0 ml Balance 0 ml Output Urine Total 0 ml # Bowel Movements 1 Laboratory Tests 11/29/16 12:30: Prothrombin Time 15.4H, Prothromb Time International Ratio 1.5H 11/30/16 04:00: Prothrombin Time 14.9H, Prothromb Time International Ratio 1.4H, White Blood Count 7.6, Red Blood Count 2.86L, Hemoglobin 9.0L, Hematocrit 28.4L, Mean Corpuscular Volume 99, Mean Corpuscular Hemoglobin 31.5H, Mean Corpuscular Hemoglobin Concent 31.7L, Red Cell Distribution Width 19.4H, Platelet Count 151 , Mean Platelet Volume 6.2L, Neutrophils (%) (Auto) 73.6, Lymphocytes (%) (Auto ) 13.7L, Monocytes (%) (Auto) 10.1H, Eosinophils (%) (Auto) 1.5, Basophils (%) ( Auto) 1.0, Activated Partial Thromboplast Time 33, Sodium Level 147H, Potassium Level 3.7, Chloride Level 105, Carbon Dioxide Level 32, Anion Gap 10, Blood Urea Nitrogen 26H, Creatinine 3.2H, Estimat Glomerular Filtration Rate , Glucose Level 88, Uric Acid 4.5, Calcium Level 8.3L, Phosphorus Level 3.6, Magnesium Level 2.0, Total Bilirubin 1.1H, Direct Bilirubin 0.5H, Aspartate Amino Transf (AST/SGOT) 16, Alanine Aminotransferase (ALT/SGPT) < 6L, Alkaline Phosphatase 67, C-Reactive Protein, Quantitative 17.8H, Pro-B-Type Natriuretic Peptide 55789A, Total Protein 7.5, Albumin 2.2L, Globulin 5.3, Albumin/Globulin Ratio 0.4L 11/30/16 09:00: Arterial Blood pH 7.368, Arterial Blood Partial Pressure CO2 54.2H, Arterial Blood Partial Pressure O2 84.8, Arterial Blood HCO3 30.5H, Arterial Blood Oxygen Saturation 95.2, Arterial Blood Base Excess 4.2, Mike Test Positive Height (Feet): 5 Height (Inches): 4.00 Weight (Pounds): 372 General Appearance: no apparent distress Cardiovascular: tachycardia Respiratory/Chest: decreased breath sounds Abdomen: distended Edema: 2+ Arm (L), 2+ Arm (R), 2+ Leg (L), 2+ Leg (R), 2+ Pedal (L), 2+ Pedal ( R), 2+ Generalized Objective much less edematous COURTNEY LOPEZ Nov 30, 2016 12:15
--- NOTE | 2016-11-30 12:17 | Diagnostic Imaging Report ---
Indication: DYSPNEA Technique: One view of the chest Comparison: 11/29/2016 Findings: There is marked increase in dense consolidation of the right mid and lower lung. Tracheostomy remains. Right jugular central venous catheter remains. Cardiomegaly persists. Impression: Markedly increased dense consolidation of the right mid and lower lung, over one day
--- NOTE | 2016-11-30 14:18 | Cardiology Progress Note ---
Assessment/Plan Assessment/Plan 1. Permanent atrial fibrillation. 2. Chronic respiratory failure, on a mechanical ventilator. 3. Cor pulmonale. 4. Pulmonary hypertension. 5. Acute renal failure, now on dialysis. 6. Anemia. 7. Significant edema. 8. Hypoalbuminemia. bp now low has edema still on vent anticoagulation for stroke prevention when no contraindication stool ob ordered no results yet Subjective Cardiovascular: Denies: chest pain, palpitations Respiratory: Reports: shortness of breath Gastrointestinal/Abdominal: Denies: abdominal pain Genitourinary: Denies: burning Subjective wants her ham sandwich Objective Last 24 Hour Vital Signs Date Time Temp Pulse Resp B/P (MAP) Pulse Ox O2 Delivery O2 Flow Rate FiO2 11/30/16 13:00 110 18 81/51 100 Mechanical Ventilator 95 11/30/16 12:45 103 16 90 11/30/16 12:00 98 11/30/16 12:00 95 11/30/16 12:00 98.6 103 23 90/34 100 Mechanical Ventilator 95 11/30/16 11:00 105 18 92/41 100 Mechanical Ventilator 95 11/30/16 10:36 112 16 95 11/30/16 10:00 113 17 96/52 99 Mechanical Ventilator 50 11/30/16 09:00 109 17 102/50 98 Mechanical Ventilator 50 11/30/16 08:42 112 16 100 11/30/16 08:00 98.8 105 19 92/52 97 Mechanical Ventilator 50 11/30/16 08:00 50 11/30/16 08:00 106 11/30/16 07:00 102 17 83/64 93 Mechanical Ventilator 50 11/30/16 06:52 96 15 100 11/30/16 06:00 99 17 78/58 93 Mechanical Ventilator 50 11/30/16 05:29 102 17 50 11/30/16 05:00 113 23 87/47 99 Mechanical Ventilator 50 11/30/16 04:00 98.5 99 16 94/57 98 Mechanical Ventilator 50 11/30/16 04:00 50 11/30/16 04:00 112 11/30/16 03:00 114 23 90/43 97 Mechanical Ventilator 50 11/30/16 02:59 122 21 50 11/30/16 02:00 101 23 98/52 97 Mechanical Ventilator 50 11/30/16 01:24 102 20 50 11/30/16 01:00 106 23 96/49 97 Mechanical Ventilator 50 11/30/16 00:00 75 11/30/16 00:00 50 11/30/16 00:00 98.9 84 14 92/46 98 Mechanical Ventilator 50 11/29/16 23:00 82 23 101/53 97 Mechanical Ventilator 50 11/29/16 22:44 76 14 Mechanical Ventilator 50 11/29/16 22:43 76 14 50 11/29/16 22:00 98 23 90/44 97 Mechanical Ventilator 50 11/29/16 21:00 99 14 94/57 99 Mechanical Ventilator 50 11/29/16 20:42 90 14 50 11/29/16 20:00 99.0 99 14 94/57 98 Mechanical Ventilator 50 11/29/16 20:00 87 11/29/16 20:00 50 11/29/16 19:29 91 14 50 11/29/16 19:00 81 23 102/60 97 Mechanical Ventilator 50 11/29/16 18:00 76 14 84/54 99 Mechanical Ventilator 50 11/29/16 17:00 68 14 79/43 99 Mechanical Ventilator 50 11/29/16 16:32 71 14 50 11/29/16 16:00 93 11/29/16 16:00 50 11/29/16 16:00 98.9 93 14 75/38 98 Mechanical Ventilator 50 11/29/16 15:00 115 19 75/45 99 Mechanical Ventilator 50 11/29/16 14:31 120 14 50 11/29/16 14:28 50 General Appearance: no apparent distress, alert, on vent, patient on isolation Neck: supple Cardiovascular: irregularly irregular Respiratory/Chest: lungs clear Abdomen: normal bowel sounds, non tender, soft Extremities: moderate edema Intake and Output 11/30/16 12/01/16 19:00 07:00 Output Total 0 ml Balance 0 ml Output Urine Total 0 ml # Bowel Movements 2 Laboratory Tests Test 11/30/16 04:00 11/30/16 09:00 White Blood Count 7.6 K/UL (4.8-10.8) Red Blood Count 2.86 M/UL (4.20-5.40) L Hemoglobin 9.0 G/DL (12.0-16.0) L Hematocrit 28.4 % (37.0-47.0) L Mean Corpuscular Volume 99 FL (80-99) Mean Corpuscular Hemoglobin 31.5 PG (27.0-31.0) H Mean Corpuscular Hemoglobin Concent 31.7 G/DL (32.0-36.0) L Red Cell Distribution Width 19.4 % (11.6-14.8) H Platelet Count 151 K/UL (150-450) Mean Platelet Volume 6.2 FL (6.5-10.1) L Neutrophils (%) (Auto) 73.6 % (45.0-75.0) Lymphocytes (%) (Auto) 13.7 % (20.0-45.0) L Monocytes (%) (Auto) 10.1 % (1.0-10.0) H Eosinophils (%) (Auto) 1.5 % (0.0-3.0) Basophils (%) (Auto) 1.0 % (0.0-2.0) Prothrombin Time 14.9 SEC (9.30-11.50) H Prothromb Time International Ratio 1.4 (0.9-1.1) H Activated Partial Thromboplast Time 33 SEC (23-33) Sodium Level 147 MMOL/L (136-145) H Potassium Level 3.7 MMOL/L (3.5-5.1) Chloride Level 105 MMOL/L (98-107) Carbon Dioxide Level 32 MMOL/L (21-32) Anion Gap 10 mmol/L (5-15) Blood Urea Nitrogen 26 mg/dL (7-18) H Creatinine 3.2 MG/DL (0.55-1.30) H Estimat Glomerular Filtration Rate mL/min (>60) Glucose Level 88 MG/DL (74-106) Uric Acid 4.5 MG/DL (2.6-7.2) Calcium Level 8.3 MG/DL (8.5-10.1) L Phosphorus Level 3.6 MG/DL (2.5-4.9) Magnesium Level 2.0 MG/DL (1.8-2.4) Total Bilirubin 1.1 MG/DL (0.2-1.0) H Direct Bilirubin 0.5 MG/DL (0.0-0.3) H Aspartate Amino Transf (AST/SGOT) 16 U/L (15-37) Alanine Aminotransferase (ALT/SGPT) < 6 U/L (12-78) L Alkaline Phosphatase 67 U/L (46-116) C-Reactive Protein, Quantitative 17.8 mg/dL (0.00-0.90) H Pro-B-Type Natriuretic Peptide 80541 pg/mL (0-125) H Total Protein 7.5 G/DL (6.4-8.2) Albumin 2.2 G/DL (3.4-5.0) L Globulin 5.3 g/dL Albumin/Globulin Ratio 0.4 (1.0-2.7) L Arterial Blood pH 7.368 (7.350-7.450) Arterial Blood Partial Pressure CO2 54.2 mmHg (35.0-45.0) H Arterial Blood Partial Pressure O2 84.8 mmHg (75.0-100.0) Arterial Blood HCO3 30.5 mmol/L (22.0-26.0) H Arterial Blood Oxygen Saturation 95.2 % (92.0-98.0) Arterial Blood Base Excess 4.2 Mike Test Positive BRIANA TELLES Nov 30, 2016 14:18
--- NOTE | 2016-11-30 14:53 | GI Progress Note ---
Assessment/Plan Problems: (1) Positive occult stool blood test ICD Codes: R19.5 - Other fecal abnormalities SNOMED: 55004187, 925516892 (2) Morbid obesity ICD Codes: E66.01 - Morbid (severe) obesity due to excess calories SNOMED: 848364229, 18940352529101 (3) Anemia ICD Codes: D64.9 - Anemia, unspecified SNOMED: 444836735 (4) PEG (percutaneous endoscopic gastrostomy) adjustment/replacement/removal ICD Codes: Z43.1 - Encounter for attention to gastrostomy SNOMED: 629826212, 874797725 Status: unchanged Status Narrative 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 Dr. Noriega. Assessment/Plan PEG cancelled by anesthesia >> patient status is not optimized at this time. cont current plan of care will follow and reschedule fu pulmonary recs fu labs The patient was seen and examined at bedside and all new and available data was reviewed in the patients chart. I agree with the above findings, impression and plan. (Patient seen earlier today. Signature stamp does not reflect patient encounter time.). - Karen Noriega MD Subjective Gastrointestinal/Abdominal: Reports: no symptoms Subjective hungry Objective Last 24 Hour Vital Signs Date Time Temp Pulse Resp B/P (MAP) Pulse Ox O2 Delivery O2 Flow Rate FiO2 11/30/16 14:00 91 18 81/61 99 Mechanical Ventilator 95 11/30/16 13:00 110 18 81/51 100 Mechanical Ventilator 95 11/30/16 12:45 103 16 90 11/30/16 12:00 98 11/30/16 12:00 95 11/30/16 12:00 98.6 103 23 90/34 100 Mechanical Ventilator 95 11/30/16 11:00 105 18 92/41 100 Mechanical Ventilator 95 11/30/16 10:36 112 16 95 11/30/16 10:00 113 17 96/52 99 Mechanical Ventilator 50 11/30/16 09:00 109 17 102/50 98 Mechanical Ventilator 50 11/30/16 08:42 112 16 100 11/30/16 08:00 98.8 105 19 92/52 97 Mechanical Ventilator 50 11/30/16 08:00 50 11/30/16 08:00 106 11/30/16 07:00 102 17 83/64 93 Mechanical Ventilator 50 11/30/16 06:52 96 15 100 11/30/16 06:00 99 17 78/58 93 Mechanical Ventilator 50 11/30/16 05:29 102 17 50 11/30/16 05:00 113 23 87/47 99 Mechanical Ventilator 50 11/30/16 04:00 98.5 99 16 94/57 98 Mechanical Ventilator 50 11/30/16 04:00 50 11/30/16 04:00 112 11/30/16 03:00 114 23 90/43 97 Mechanical Ventilator 50 11/30/16 02:59 122 21 50 11/30/16 02:00 101 23 98/52 97 Mechanical Ventilator 50 11/30/16 01:24 102 20 50 11/30/16 01:00 106 23 96/49 97 Mechanical Ventilator 50 11/30/16 00:00 75 11/30/16 00:00 50 11/30/16 00:00 98.9 84 14 92/46 98 Mechanical Ventilator 50 11/29/16 23:00 82 23 101/53 97 Mechanical Ventilator 50 11/29/16 22:44 76 14 Mechanical Ventilator 50 11/29/16 22:43 76 14 50 11/29/16 22:00 98 23 90/44 97 Mechanical Ventilator 50 11/29/16 21:00 99 14 94/57 99 Mechanical Ventilator 50 11/29/16 20:42 90 14 50 11/29/16 20:00 99.0 99 14 94/57 98 Mechanical Ventilator 50 11/29/16 20:00 87 11/29/16 20:00 50 11/29/16 19:29 91 14 50 11/29/16 19:00 81 23 102/60 97 Mechanical Ventilator 50 11/29/16 18:00 76 14 84/54 99 Mechanical Ventilator 50 11/29/16 17:00 68 14 79/43 99 Mechanical Ventilator 50 11/29/16 16:32 71 14 50 11/29/16 16:00 93 11/29/16 16:00 50 11/29/16 16:00 98.9 93 14 75/38 98 Mechanical Ventilator 50 11/29/16 15:00 115 19 75/45 99 Mechanical Ventilator 50 Intake and Output 11/30/16 12/01/16 19:00 07:00 Output Total 0 ml Balance 0 ml Output Urine Total 0 ml # Bowel Movements 2 Laboratory Tests Test 11/30/16 04:00 10/24/17 09:00 White Blood Count 7.6 K/UL (4.8-10.8) Red Blood Count 2.86 M/UL (4.20-5.40) L Hemoglobin 9.0 G/DL (12.0-16.0) L Hematocrit 28.4 % (37.0-47.0) L Mean Corpuscular Volume 99 FL (80-99) Mean Corpuscular Hemoglobin 31.5 PG (27.0-31.0) H Mean Corpuscular Hemoglobin Concent 31.7 G/DL (32.0-36.0) L Red Cell Distribution Width 19.4 % (11.6-14.8) H Platelet Count 151 K/UL (150-450) Mean Platelet Volume 6.2 FL (6.5-10.1) L Neutrophils (%) (Auto) 73.6 % (45.0-75.0) Lymphocytes (%) (Auto) 13.7 % (20.0-45.0) L Monocytes (%) (Auto) 10.1 % (1.0-10.0) H Eosinophils (%) (Auto) 1.5 % (0.0-3.0) Basophils (%) (Auto) 1.0 % (0.0-2.0) Prothrombin Time 14.9 SEC (9.30-11.50) H Prothromb Time International Ratio 1.4 (0.9-1.1) H Activated Partial Thromboplast Time 33 SEC (23-33) Sodium Level 147 MMOL/L (136-145) H Potassium Level 3.7 MMOL/L (3.5-5.1) Chloride Level 105 MMOL/L (98-107) Carbon Dioxide Level 32 MMOL/L (21-32) Anion Gap 10 mmol/L (5-15) Blood Urea Nitrogen 26 mg/dL (7-18) H Creatinine 3.2 MG/DL (0.55-1.30) H Estimat Glomerular Filtration Rate mL/min (>60) Glucose Level 88 MG/DL (74-106) Uric Acid 4.5 MG/DL (2.6-7.2) Calcium Level 8.3 MG/DL (8.5-10.1) L Phosphorus Level 3.6 MG/DL (2.5-4.9) Magnesium Level 2.0 MG/DL (1.8-2.4) Total Bilirubin 1.1 MG/DL (0.2-1.0) H Direct Bilirubin 0.5 MG/DL (0.0-0.3) H Aspartate Amino Transf (AST/SGOT) 16 U/L (15-37) Alanine Aminotransferase (ALT/SGPT) < 6 U/L (12-78) L Alkaline Phosphatase 67 U/L (46-116) C-Reactive Protein, Quantitative 17.8 mg/dL (0.00-0.90) H Pro-B-Type Natriuretic Peptide 81286 pg/mL (0-125) H Total Protein 7.5 G/DL (6.4-8.2) Albumin 2.2 G/DL (3.4-5.0) L Globulin 5.3 g/dL Albumin/Globulin Ratio 0.4 (1.0-2.7) L Arterial Blood pH 7.368 (7.350-7.450) Arterial Blood Partial Pressure CO2 54.2 mmHg (35.0-45.0) H Arterial Blood Partial Pressure O2 84.8 mmHg (75.0-100.0) Arterial Blood HCO3 30.5 mmol/L (22.0-26.0) H Arterial Blood Oxygen Saturation 95.2 % (92.0-98.0) Arterial Blood Base Excess 4.2 Mike Test Positive Height (Feet): 5 Height (Inches): 4.00 Weight (Pounds): 372 General Appearance: alert, morbidly obese Cardiovascular: normal rate Respiratory/Chest: other - trach to vent Abdominal Exam: other - NPO Kateryna Sherman N.P. Nov 30, 2016 14:53 RUDDY NORIEGA Nov 30, 2016 15:23
[2016-11-30] MEDS ORDERED: Tubing IV Secondary IV ONE (15:03)
[2016-11-30] MEDS ORDERED: D5W 275ml ONE (15:03)
--- NOTE | 2016-11-30 16:01 | General Progress Note ---
Assessment/Plan Assessment/Plan ASSESSMENT/RECS: # Coagulopathy 2/2 sepsis --> INR improving #. Anemia secondary to chronic disease. Continue to closely monitor. Work up reviewed --> s/p transfusion. watch counts, transfuse if hgb is below 8 #. Anemia of kidney disease. Nephrology service following #. PEG tube placement, has been cancelled for now due to poor status #. Chronic ventilator dependent #. Permanent atrial fibrillation. #. Cellulitis and chronic lymphedema of the bilateral lower extremities. Continue to monitor. On abx per id service #. Congestive heart failure. Subjective ROS Limited/Unobtainable: Yes Allergies: Coded Allergies: AMOXICILLIN (Verified Allergy, Mild, RASH, 09/30/16) PENICILLINS (Unverified Allergy, Unknown, 09/30/16) Subjective peg placement cancelled Objective Last 24 Hour Vital Signs Date Time Temp Pulse Resp B/P (MAP) Pulse Ox O2 Delivery O2 Flow Rate FiO2 11/30/16 14:50 102 14 80 11/30/16 14:00 91 18 81/61 99 Mechanical Ventilator 95 11/30/16 13:00 110 18 81/51 100 Mechanical Ventilator 95 11/30/16 12:45 103 16 90 11/30/16 12:00 98 11/30/16 12:00 95 11/30/16 12:00 98.6 103 23 90/34 100 Mechanical Ventilator 95 11/30/16 11:00 105 18 92/41 100 Mechanical Ventilator 95 11/30/16 10:36 112 16 95 11/30/16 10:00 113 17 96/52 99 Mechanical Ventilator 50 11/30/16 09:00 109 17 102/50 98 Mechanical Ventilator 50 11/30/16 08:42 112 16 100 11/30/16 08:00 98.8 105 19 92/52 97 Mechanical Ventilator 50 11/30/16 08:00 50 11/30/16 08:00 106 11/30/16 07:00 102 17 83/64 93 Mechanical Ventilator 50 11/30/16 06:52 96 15 100 11/30/16 06:00 99 17 78/58 93 Mechanical Ventilator 50 11/30/16 05:29 102 17 50 11/30/16 05:00 113 23 87/47 99 Mechanical Ventilator 50 11/30/16 04:00 98.5 99 16 94/57 98 Mechanical Ventilator 50 11/30/16 04:00 50 11/30/16 04:00 112 11/30/16 03:00 114 23 90/43 97 Mechanical Ventilator 50 11/30/16 02:59 122 21 50 11/30/16 02:00 101 23 98/52 97 Mechanical Ventilator 50 11/30/16 01:24 102 20 50 11/30/16 01:00 106 23 96/49 97 Mechanical Ventilator 50 11/30/16 00:00 75 11/30/16 00:00 50 11/30/16 00:00 98.9 84 14 92/46 98 Mechanical Ventilator 50 11/29/16 23:00 82 23 101/53 97 Mechanical Ventilator 50 11/29/16 22:44 76 14 Mechanical Ventilator 50 11/29/16 22:43 76 14 50 11/29/16 22:00 98 23 90/44 97 Mechanical Ventilator 50 11/29/16 21:00 99 14 94/57 99 Mechanical Ventilator 50 11/29/16 20:42 90 14 50 11/29/16 20:00 99.0 99 14 94/57 98 Mechanical Ventilator 50 11/29/16 20:00 87 11/29/16 20:00 50 11/29/16 19:29 91 14 50 11/29/16 19:00 81 23 102/60 97 Mechanical Ventilator 50 11/29/16 18:00 76 14 84/54 99 Mechanical Ventilator 50 11/29/16 17:00 68 14 79/43 99 Mechanical Ventilator 50 11/29/16 16:32 71 14 50 11/29/16 16:00 93 11/29/16 16:00 50 11/29/16 16:00 98.9 93 14 75/38 98 Mechanical Ventilator 50 Intake and Output 11/30/16 12/01/16 19:00 07:00 Output Total 0 ml Balance 0 ml Output Urine Total 0 ml # Bowel Movements 2 Laboratory Tests 11/30/16 04:00: White Blood Count 7.6, Red Blood Count 2.86L, Hemoglobin 9.0L, Hematocrit 28.4L , Mean Corpuscular Volume 99, Mean Corpuscular Hemoglobin 31.5H, Mean Corpuscular Hemoglobin Concent 31.7L, Red Cell Distribution Width 19.4H, Platelet Count 151, Mean Platelet Volume 6.2L, Neutrophils (%) (Auto) 73.6, Lymphocytes (%) (Auto) 13.7L, Monocytes (%) (Auto) 10.1H, Eosinophils (%) (Auto ) 1.5, Basophils (%) (Auto) 1.0, Prothrombin Time 14.9H, Prothromb Time International Ratio 1.4H, Activated Partial Thromboplast Time 33, Sodium Level 147H, Potassium Level 3.7, Chloride Level 105, Carbon Dioxide Level 32, Anion Gap 10, Blood Urea Nitrogen 26H, Creatinine 3.2H, Estimat Glomerular Filtration Rate , Glucose Level 88, Uric Acid 4.5, Calcium Level 8.3L, Phosphorus Level 3.6 , Magnesium Level 2.0, Total Bilirubin 1.1H, Direct Bilirubin 0.5H, Aspartate Amino Transf (AST/SGOT) 16, Alanine Aminotransferase (ALT/SGPT) < 6L, Alkaline Phosphatase 67, C-Reactive Protein, Quantitative 17.8H, Pro-B-Type Natriuretic Peptide 42459B, Total Protein 7.5, Albumin 2.2L, Globulin 5.3, Albumin/Globulin Ratio 0.4L 11/30/16 09:00: Arterial Blood pH 7.368, Arterial Blood Partial Pressure CO2 54.2H, Arterial Blood Partial Pressure O2 84.8, Arterial Blood HCO3 30.5H, Arterial Blood Oxygen Saturation 95.2, Arterial Blood Base Excess 4.2, Mike Test Positive Height (Feet): 5 Height (Inches): 4.00 Weight (Pounds): 372 Serafin Haines Nov 30, 2016 16:01
[2016-11-30] MEDS ORDERED: NS 250 ML IVPB ONE (18:30)
[2016-11-30] MEDS: Dyna-Hex 2% Top Sol 2oz TOPIC SCH (20:14)
--- NOTE | 2016-11-30 21:17 | General Progress Note ---
Assessment/Plan Status: progressing Assessment/Plan This is a 76-year-old, morbidly obese female, admitted with anasarca and cellulitis of the lower leg. The patient was admitted to the directr observation unit on the monitor with the following medical problems. now transfered to icu as of 11-14-16, co of pruritis 1. Anasarca. She appears to be markedly swollen. She will need diuresis. Place the patient on Lasix 20 mg intravenous for now q.12 hours. Cardiology and Pulmonary on the case. We will follow orders. Check laboratory studies daily. lasix drip was discontinued in am, HD started 2. Chronic hypercapnic respiratory failure. Continue with vent support per Pulmonary. will discuss with pulmonary regarding trach issues 3 anemia. s./p transfusion of PRBC Continue monitoring CBC daily. patient to start procrit per nephrology 4. Pulmonary hypertension. hold Eliquis 2.5 mg twice a day until trach is refitted 5. Chronic kidney disease. We will monitor BUN and creatinine. Gentle diuresis for now. Nephrology has been consulted. further workup per nephrology. avoid nephrotoxic agents HD to start soon 6. DVT prophylaxis. The patient is on Eliquis. The patient is Full 7. nutrition: patient didn't tolerate NGT placment, patient is now agreeable to PEG placement, all questions were answered including risks and benefits, patient agrees to proceed Code. 8. Alkalosis: on SIMV monitor labs 9. Generalized anxiety: ativna prn, counselled for 15min 10. constipation: prn enema, continue with colace and MiraLax had revesion of trach on 11-23-16 discussed with icu nurse benadryl 25 mg iv q 6 prn itching NPO still except ice chips continue HD per nephrology possible need for trach revision again by Dr. Powell tomorrow PEG to be placed when medically more stable Subjective Date patient seen: Nov 30, 2016 ROS Limited/Unobtainable: Yes Allergies: Coded Allergies: AMOXICILLIN (Verified Allergy, Mild, RASH, 09/30/16) PENICILLINS (Unverified Allergy, Unknown, 09/30/16) Subjective patient with two large bowel movements after enema was given last night, doing better on VENT Objective Last 24 Hour Vital Signs Date Time Temp Pulse Resp B/P (MAP) Pulse Ox O2 Delivery O2 Flow Rate FiO2 10/24/17 20:00 99.0 77 18 83/48 99 Mechanical Ventilator 80 11/30/16 20:00 79 11/30/16 20:00 70 11/30/16 19:31 89 16 70 11/30/16 19:00 79 22 90/42 100 Mechanical Ventilator 80 11/30/16 18:00 71 25 75/41 99 Mechanical Ventilator 80 11/30/16 17:00 79 18 83/48 99 Mechanical Ventilator 80 11/30/16 16:58 77 14 70 11/30/16 16:00 99.2 77 18 85/48 99 Mechanical Ventilator 80 11/30/16 16:00 76 11/30/16 16:00 95 11/30/16 15:00 79 18 85/50 99 Mechanical Ventilator 80 11/30/16 14:50 102 14 80 11/30/16 14:00 91 18 81/61 99 Mechanical Ventilator 95 11/30/16 13:00 110 18 81/51 100 Mechanical Ventilator 95 11/30/16 12:45 103 16 90 11/30/16 12:00 98 11/30/16 12:00 95 11/30/16 12:00 98.6 103 23 90/34 100 Mechanical Ventilator 95 11/30/16 11:00 105 18 92/41 100 Mechanical Ventilator 95 11/30/16 10:36 112 16 95 11/30/16 10:00 113 17 96/52 99 Mechanical Ventilator 50 11/30/16 09:00 109 17 102/50 98 Mechanical Ventilator 50 11/30/16 08:42 112 16 100 11/30/16 08:00 98.8 105 19 92/52 97 Mechanical Ventilator 50 11/30/16 08:00 50 11/30/16 08:00 106 11/30/16 07:00 102 17 83/64 93 Mechanical Ventilator 50 11/30/16 06:52 96 15 100 11/30/16 06:00 99 17 78/58 93 Mechanical Ventilator 50 11/30/16 05:29 102 17 50 11/30/16 05:00 113 23 87/47 99 Mechanical Ventilator 50 11/30/16 04:00 98.5 99 16 94/57 98 Mechanical Ventilator 50 11/30/16 04:00 50 11/30/16 04:00 112 11/30/16 03:00 114 23 90/43 97 Mechanical Ventilator 50 11/30/16 02:59 122 21 50 11/30/16 02:00 101 23 98/52 97 Mechanical Ventilator 50 11/30/16 01:24 102 20 50 11/30/16 01:00 106 23 96/49 97 Mechanical Ventilator 50 11/30/16 00:00 75 11/30/16 00:00 50 11/30/16 00:00 98.9 84 14 92/46 98 Mechanical Ventilator 50 11/29/16 23:00 82 23 101/53 97 Mechanical Ventilator 50 11/29/16 22:44 76 14 Mechanical Ventilator 50 11/29/16 22:43 76 14 50 11/29/16 22:00 98 23 90/44 97 Mechanical Ventilator 50 Intake and Output 11/30/16 12/01/16 19:00 07:00 Output Total 5 ml 0 ml Balance -5 ml 0 ml Output Urine Total 5 ml 0 ml # Bowel Movements 3 1 Laboratory Tests 11/30/16 04:00: White Blood Count 7.6, Red Blood Count 2.86L, Hemoglobin 9.0L, Hematocrit 28.4L , Mean Corpuscular Volume 99, Mean Corpuscular Hemoglobin 31.5H, Mean Corpuscular Hemoglobin Concent 31.7L, Red Cell Distribution Width 19.4H, Platelet Count 151, Mean Platelet Volume 6.2L, Neutrophils (%) (Auto) 73.6, Lymphocytes (%) (Auto) 13.7L, Monocytes (%) (Auto) 10.1H, Eosinophils (%) (Auto ) 1.5, Basophils (%) (Auto) 1.0, Prothrombin Time 14.9H, Prothromb Time International Ratio 1.4H, Activated Partial Thromboplast Time 33, Sodium Level 147H, Potassium Level 3.7, Chloride Level 105, Carbon Dioxide Level 32, Anion Gap 10, Blood Urea Nitrogen 26H, Creatinine 3.2H, Estimat Glomerular Filtration Rate , Glucose Level 88, Uric Acid 4.5, Calcium Level 8.3L, Phosphorus Level 3.6 , Magnesium Level 2.0, Total Bilirubin 1.1H, Direct Bilirubin 0.5H, Aspartate Amino Transf (AST/SGOT) 16, Alanine Aminotransferase (ALT/SGPT) < 6L, Alkaline Phosphatase 67, C-Reactive Protein, Quantitative 17.8H, Pro-B-Type Natriuretic Peptide 38458G, Total Protein 7.5, Albumin 2.2L, Globulin 5.3, Albumin/Globulin Ratio 0.4L 11/30/16 09:00: Arterial Blood pH 7.368, Arterial Blood Partial Pressure CO2 54.2H, Arterial Blood Partial Pressure O2 84.8, Arterial Blood HCO3 30.5H, Arterial Blood Oxygen Saturation 95.2, Arterial Blood Base Excess 4.2, Mike Test Positive Height (Feet): 5 Height (Inches): 4.00 Weight (Pounds): 372 General Appearance: overweight EENT: PERRL/EOMI, pharynx normal Neck: non-tender, supple Cardiovascular: normal rate, regular rhythm, no gallop/murmur, no JVD Respiratory/Chest: lungs clear Abdomen: distended Extremities: swelling Edema: 3+ Arm (L), 3+ Arm (R), 4+ Leg (L), 4+ Leg (R), 4+ Pedal (L), 4+ Pedal ( R), 4+ Generalized Edema: severe edema Neurologic: responsive Skin: rash Lymphatic: normal anterior cervical (L), normal anterior cervical (R), normal posterior cervical (L), normal posterior cervical (R), normal submandibular (L) , normal submandibular (R), normal supraclavicular (L), normal supraclavicular ( R), normal axillary (L), normal axillary (R), normal inguinal (L), normal inguinal (R), normal other Manny Nolan MD Nov 30, 2016 21:16
[2016-12-01] VITALS (24 sets, daily range): BP systolic 70–119; BP diastolic 36–70
[2016-12-01 05:14] LABS: MEAN CORPUSCULAR HGB CONC 30.2 G/DL (32.0-36.0); MEAN CORPUSCULAR VOLUME 99 FL (80-99); MEAN PLATELET VOLUME 7.1 FL (6.5-10.1); PLATELET COUNT 146 K/UL (150-450); RED BLOOD COUNT 2.62 M/UL (4.20-5.40); RED CELL DISTRIBUTION WIDTH 18.9 % (11.6-14.8); WHITE BLOOD COUNT 9.9 K/UL (4.8-10.8)
[2016-12-01 06:01] LABS: ALANINE AMINOTRANSFERASE < 6 U/L (12-78); ALBUMIN/GLOBULIN RATIO 0.4 (1.0-2.7); ANION GAP 10 mmol/L (5-15); ASPARTATE AMINO TRANSFERASE 13 U/L (15-37); CALCIUM 8.3 MG/DL (8.5-10.1); CARBON DIOXIDE 31 MMOL/L (21-32); CHLORIDE 107 MMOL/L (98-107); CREATININE 3.6 MG/DL (0.55-1.30); POTASSIUM 3.6 MMOL/L (3.5-5.1); SODIUM 148 MMOL/L (136-145); TOTAL PROTEIN 6.3 G/DL (6.4-8.2)
[2016-12-01 08:16] LABS: ANISOCYTOSIS 1+; BAND NEUTROPHILS % (MANUAL) 0 % (0-8); BASOPHILS % (MANUAL) 0 % (0-2); EOSINOPHILS % (MANUAL) 6 % (0-3); HYPOCHROMASIA 1+; LYMPHOCYTES % (MANUAL) 13 % (20-45); NEUTROPHILS % (MANUAL) 71 % (45-75); PLATELET ESTIMATE ADEQUATE; PLATELET MORPHOLOGY NORMAL; TOTAL CELLS COUNTED 100
[2016-12-01] MEDS: Pantoprazole Inj IVP SCH (09:00)
[2016-12-01] MEDS: Miralax 17gm pkt ORAL SCH (09:00)
--- NOTE | 2016-12-01 09:09 | General Progress Note ---
Assessment/Plan Status: stable Assessment/Plan Cellulitis BLE and R arm- in the setting of chronic leg edema- r/o DVT Anasarca/ bilateral leg lymphedema CKD- and acute renal failure - Acute respiratory failure s/p Trach Obese COPD , CHF, Diastolic MINA UTI Anemia GI Bleed, GI bleeding At Fib Pulm HTN h/o Low B12 plan: due PEG last HD 11/29 next 12/01, starting shortly K supplement on EPOGEN 24 H urine collection in process: CrCl 6 Monitor renal parameters- optimize cardiac and pulm status avoid nephrotoxics- pulmonary support- transfuse as needed ? DC planning Subjective ROS Limited/Unobtainable: Yes Allergies: Coded Allergies: AMOXICILLIN (Verified Allergy, Mild, RASH, 09/30/16) PENICILLINS (Unverified Allergy, Unknown, 09/30/16) Objective Last 24 Hour Vital Signs Date Time Temp Pulse Resp B/P (MAP) Pulse Ox O2 Delivery O2 Flow Rate FiO2 12/01/16 08:26 Mechanical Ventilator 50 12/01/16 08:00 98.4 89 14 93/50 98 Mechanical Ventilator 50 12/01/16 08:00 85 12/01/16 08:00 50 12/01/16 07:25 92 14 50 12/01/16 07:00 70 18 83/44 100 Mechanical Ventilator 50 12/01/16 06:00 92 18 84/45 100 Mechanical Ventilator 50 12/01/16 05:00 91 18 86/44 100 Mechanical Ventilator 50 12/01/16 04:34 93 14 50 12/01/16 04:00 99.0 75 18 93/56 99 Mechanical Ventilator 50 12/01/16 04:00 95 12/01/16 04:00 50 12/01/16 03:25 70 14 50 12/01/16 03:00 68 18 80/36 100 Mechanical Ventilator 50 12/01/16 02:00 70 18 83/36 100 Mechanical Ventilator 50 12/01/16 01:29 69 14 50 12/01/16 01:00 70 18 81/40 100 Mechanical Ventilator 50 12/01/16 01:00 50 12/01/16 00:00 69 12/01/16 00:00 60 12/01/16 00:00 99.1 61 18 87/46 99 Mechanical Ventilator 60 11/30/16 23:22 61 14 60 11/30/16 23:00 66 18 84/38 100 Mechanical Ventilator 70 11/30/16 22:00 73 18 82/38 100 Mechanical Ventilator 70 11/30/16 21:20 86 16 70 11/30/16 21:00 79 18 77/39 100 Mechanical Ventilator 70 11/30/16 20:00 99.0 77 18 83/48 99 Mechanical Ventilator 70 11/30/16 20:00 79 11/30/16 20:00 70 11/30/16 19:31 89 16 70 11/30/16 19:00 79 22 90/42 100 Mechanical Ventilator 80 11/30/16 18:00 71 25 75/41 99 Mechanical Ventilator 80 11/30/16 17:00 79 18 83/48 99 Mechanical Ventilator 80 11/30/16 16:58 77 14 70 11/30/16 16:00 99.2 77 18 85/48 99 Mechanical Ventilator 80 11/30/16 16:00 76 11/30/16 16:00 95 11/30/16 15:00 79 18 85/50 99 Mechanical Ventilator 80 11/30/16 14:50 102 14 80 11/30/16 14:00 91 18 81/61 99 Mechanical Ventilator 95 11/30/16 13:00 110 18 81/51 100 Mechanical Ventilator 95 11/30/16 12:45 103 16 90 11/30/16 12:00 98 11/30/16 12:00 95 11/30/16 12:00 98.6 103 23 90/34 100 Mechanical Ventilator 95 11/30/16 11:00 105 18 92/41 100 Mechanical Ventilator 95 11/30/16 10:36 112 16 95 11/30/16 10:00 113 17 96/52 99 Mechanical Ventilator 50 Intake and Output 12/01/16 12/02/16 19:00 07:00 Output Total 0 ml Balance 0 ml Output Urine Total 0 ml # Bowel Movements 1 Laboratory Tests 12/01/16 04:00: White Blood Count 9.9, Red Blood Count 2.62L, Hemoglobin 7.9L, Hematocrit 26.1L , Mean Corpuscular Volume 99, Mean Corpuscular Hemoglobin 30.0, Mean Corpuscular Hemoglobin Concent 30.2L, Red Cell Distribution Width 18.9H, Platelet Count 146L, Mean Platelet Volume 7.1, Neutrophils (%) (Auto) , Lymphocytes (%) (Auto) , Monocytes (%) (Auto) , Eosinophils (%) (Auto) , Basophils (%) (Auto) , Differential Total Cells Counted 100, Neutrophils % ( Manual) 71, Lymphocytes % (Manual) 13L, Monocytes % (Manual) 10, Eosinophils % ( Manual) 6H, Basophils % (Manual) 0, Band Neutrophils 0, Platelet Estimate Adequate, Platelet Morphology Normal, Hypochromasia 1+, Anisocytosis 1+, Sodium Level 148H, Potassium Level 3.6, Chloride Level 107, Carbon Dioxide Level 31, Anion Gap 10, Blood Urea Nitrogen 28H, Creatinine 3.6H, Estimat Glomerular Filtration Rate , Glucose Level 80, Calcium Level 8.3L, Total Bilirubin 0.9, Aspartate Amino Transf (AST/SGOT) 13L, Alanine Aminotransferase (ALT/SGPT) < 6L , Alkaline Phosphatase 59, Pro-B-Type Natriuretic Peptide > 03523M, Total Protein 6.3L, Albumin 1.9L, Globulin 4.4, Albumin/Globulin Ratio 0.4L 12/01/16 05:00: Stool Occult Blood [Pending] Height (Feet): 5 Height (Inches): 4.00 Weight (Pounds): 347 General Appearance: no apparent distress Objective much less edematous COURTNEY LOPEZ Dec 01, 2016 09:09
--- NOTE | 2016-12-01 09:38 | Infectious Diseases Prog Note ---
Assessment/Plan Assessment/Plan Abx: IV Vancomycin 11/11-11/12; 11/17-11/26 IV Cefepime 11/11-11/12 IV Ancef 11/12- Flagyl x1 11/11 Assesment: Cellulitis BLE and R arm- in the setting of chronic leg edema/venous stasis, s/ p Rx- Limited Venous duplex BLE (non diagnostic), no DVT R arm; mild improved; Main component is of venous stasis so erythema would not completely resolve with abx -Bcx Neg Anasarca/ bilateral leg lymphedema -CXR 11/19: Interstitial edema/CHF unchanged Afebrile, no leukocytosis REnal insufficiency VRE colonzied COPD Diastolic CHF chronic resp failure, vent/trach dependent, Gtbue, pAfib, pleural effusion, MINA , CKD, GERD, morbid obesity, [place] resident Plan: -Continue to monitor off abx (ancef last dose was on 11/28- sufficient abx tx for cellulitis, now she has her baseline venous stasis changes) -s/p 18d IV Ancef 11/28 -s/p 10 d IV Vancomycin 11/26 -Will obtain picture today of legs to document her baseline appearance -extremity elevation -edema management -Monitor CBC/BMP, temperatures - vent support, trach care, aspiration precautions Thank you for this consultation. Will continue to follow along with you. 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 RN. Subjective Allergies: Coded Allergies: AMOXICILLIN (Verified Allergy, Mild, RASH, 09/30/16) PENICILLINS (Unverified Allergy, Unknown, 09/30/16) Subjective afebrile no leukocytosis remains in ICU Noticed that [facility] was dc'ed on 11/28 Objective Vital Signs Last 24 Hour Vital Signs Date Time Temp Pulse Resp B/P (MAP) Pulse Ox O2 Delivery O2 Flow Rate FiO2 12/01/16 09:19 93 14 65 12/01/16 08:26 Mechanical Ventilator 50 12/01/16 08:00 98.4 89 14 93/50 98 Mechanical Ventilator 50 12/01/16 08:00 85 12/01/16 08:00 50 12/01/16 07:25 92 14 50 12/01/16 07:00 70 18 83/44 100 Mechanical Ventilator 50 12/01/16 06:00 92 18 84/45 100 Mechanical Ventilator 50 12/01/16 05:00 91 18 86/44 100 Mechanical Ventilator 50 12/01/16 04:34 93 14 50 12/01/16 04:00 99.0 75 18 93/56 99 Mechanical Ventilator 50 12/01/16 04:00 95 12/01/16 04:00 50 12/01/16 03:25 70 14 50 12/01/16 03:00 68 18 80/36 100 Mechanical Ventilator 50 12/01/16 02:00 70 18 83/36 100 Mechanical Ventilator 50 12/01/16 01:29 69 14 50 12/01/16 01:00 70 18 81/40 100 Mechanical Ventilator 50 12/01/16 01:00 50 12/01/16 00:00 69 12/01/16 00:00 60 12/01/16 00:00 99.1 61 18 87/46 99 Mechanical Ventilator 60 11/30/16 23:22 61 14 60 11/30/16 23:00 66 18 84/38 100 Mechanical Ventilator 70 11/30/16 22:00 73 18 82/38 100 Mechanical Ventilator 70 11/30/16 21:20 86 16 70 11/30/16 21:00 79 18 77/39 100 Mechanical Ventilator 70 11/30/16 20:00 99.0 77 18 83/48 99 Mechanical Ventilator 70 11/30/16 20:00 79 11/30/16 20:00 70 11/30/16 19:31 89 16 70 11/30/16 19:00 79 22 90/42 100 Mechanical Ventilator 80 11/30/16 18:00 71 25 75/41 99 Mechanical Ventilator 80 11/30/16 17:00 79 18 83/48 99 Mechanical Ventilator 80 11/30/16 16:58 77 14 70 11/30/16 16:00 99.2 77 18 85/48 99 Mechanical Ventilator 80 11/30/16 16:00 76 11/30/16 16:00 95 11/30/16 15:00 79 18 85/50 99 Mechanical Ventilator 80 11/30/16 14:50 102 14 80 11/30/16 14:00 91 18 81/61 99 Mechanical Ventilator 95 11/30/16 13:00 110 18 81/51 100 Mechanical Ventilator 95 11/30/16 12:45 103 16 90 11/30/16 12:00 98 11/30/16 12:00 95 11/30/16 12:00 98.6 103 23 90/34 100 Mechanical Ventilator 95 11/30/16 11:00 105 18 92/41 100 Mechanical Ventilator 95 11/30/16 10:36 112 16 95 11/30/16 10:00 113 17 96/52 99 Mechanical Ventilator 50 Height (Feet): 5 Height (Inches): 4.00 Weight (Pounds): 347 Objective General Appearance: WD/WN HEENT: trach in palce, Respiratory/Chest: chest wall non-tender, lungs clear Cardiovascular/Chest: normal peripheral pulses, normal rate Abdomen: normal bowel sounds, non tender Ext: anasarca; R > L LE swelling, both legs with blanching erythema anteriorly from distal leg up to below knee, +warmth, non TTP, no drainage; R arm swelling, erythematous,. background changes of chronic lymphedema on b/l legs; erythema and swelling improved reviewed Laboratory Tests Test 12/01/16 04:00 12/01/16 05:00 White Blood Count 9.9 K/UL (4.8-10.8) Red Blood Count 2.62 M/UL (4.20-5.40) L Hemoglobin 7.9 G/DL (12.0-16.0) L Hematocrit 26.1 % (37.0-47.0) L Mean Corpuscular Volume 99 FL (80-99) Mean Corpuscular Hemoglobin 30.0 PG (27.0-31.0) Mean Corpuscular Hemoglobin Concent 30.2 G/DL (32.0-36.0) L Red Cell Distribution Width 18.9 % (11.6-14.8) H Platelet Count 146 K/UL (150-450) L Mean Platelet Volume 7.1 FL (6.5-10.1) Neutrophils (%) (Auto) % (45.0-75.0) Lymphocytes (%) (Auto) % (20.0-45.0) Monocytes (%) (Auto) % (1.0-10.0) Eosinophils (%) (Auto) % (0.0-3.0) Basophils (%) (Auto) % (0.0-2.0) Differential Total Cells Counted 100 Neutrophils % (Manual) 71 % (45-75) Lymphocytes % (Manual) 13 % (20-45) L Monocytes % (Manual) 10 % (1-10) Eosinophils % (Manual) 6 % (0-3) H Basophils % (Manual) 0 % (0-2) Band Neutrophils 0 % (0-8) Platelet Estimate Adequate Platelet Morphology Normal Hypochromasia 1+ Anisocytosis 1+ Sodium Level 148 MMOL/L (136-145) H Potassium Level 3.6 MMOL/L (3.5-5.1) Chloride Level 107 MMOL/L (98-107) Carbon Dioxide Level 31 MMOL/L (21-32) Anion Gap 10 mmol/L (5-15) Blood Urea Nitrogen 28 mg/dL (7-18) H Creatinine 3.6 MG/DL (0.55-1.30) H Estimat Glomerular Filtration Rate mL/min (>60) Glucose Level 80 MG/DL (74-106) Calcium Level 8.3 MG/DL (8.5-10.1) L Total Bilirubin 0.9 MG/DL (0.2-1.0) Aspartate Amino Transf (AST/SGOT) 13 U/L (15-37) L Alanine Aminotransferase (ALT/SGPT) < 6 U/L (12-78) L Alkaline Phosphatase 59 U/L (46-116) Pro-B-Type Natriuretic Peptide > 14480 pg/mL (0-125) H Total Protein 6.3 G/DL (6.4-8.2) L Albumin 1.9 G/DL (3.4-5.0) L Globulin 4.4 g/dL Albumin/Globulin Ratio 0.4 (1.0-2.7) L Stool Occult Blood Pending Current Medications Medications (Trade) Dose Ordered Sig/Kalyn Route PRN Reason Start Time Stop Time Status Last Admin Dose Admin Acetaminophen (Tylenol) 650 mg Q4H PRN ORAL Mild Pain/Temp > 100.5 11/14/16 08:00 12/12/16 07:59 11/30/16 13:33 Allopurinol (Allopurinol) 300 mg DAILY ORAL 11/16/16 10:00 12/16/16 09:59 11/30/16 09:24 Chlorhexidine Gluconate (Marni-Hex 2%) 1 applic Q24H TOPIC 11/27/16 20:00 12/27/16 19:59 11/30/16 20:14 Diphenhydramine HCl (Benadryl) 25 mg Q6H PRN IVP Itching 10/13/17 20:15 12/19/16 20:14 11/30/16 02:11 Docusate Sodium (Colace) 100 mg TWICE A DAY ORAL 11/14/16 09:00 12/12/16 08:59 11/30/16 17:19 Epoetin Santos (Procrit (for non ESRD use)) 10,000 units TUE-TUE-TUE SUBQ 11/17/16 21:00 12/17/16 20:59 11/29/16 22:05 Folic Acid (Folate) 1 mg DAILY ORAL 11/14/16 09:00 12/12/16 08:59 11/30/16 09:24 Gabapentin (Neurontin) 600 mg BID ORAL 11/14/16 09:00 12/14/16 08:59 11/30/16 17:19 Lorazepam (Ativan 2mg/ml 1ml) 2 mg Q2H PRN IV For Anxiety 11/29/16 13:15 12/06/16 13:14 11/29/16 13:20 Midodrine (Pro-Amatine) 10 mg THREE TIMES A DAY ORAL 11/21/16 13:00 12/21/16 12:59 11/30/16 17:19 Pantoprazole (Protonix) 40 mg DAILY IVP 11/14/16 09:00 12/12/16 08:59 11/30/16 09:24 Polyethylene Glycol (Miralax) 17 gm DAILY ORAL 11/14/16 09:00 12/12/16 08:59 11/29/16 08:30 Pravastatin Sodium (Pravachol) 20 mg BEDTIME ORAL 11/14/16 21:00 12/12/16 20:59 11/30/16 21:19 Sildenafil Citrate (Revatio) 20 mg THREE TIMES A DAY ORAL 11/14/16 09:00 12/12/16 08:59 11/30/16 17:20 Danielle Guo M.D. Dec 01, 2016 09:38
[2016-12-01] MEDS: Docusate 100mg cap ORAL SCH ×2 (09:46→17:50)
[2016-12-01] MEDS: Revatio 20mg tab ORAL SCH ×3 (09:46→17:50)
[2016-12-01] MEDS: Midodrine 10mg tab ORAL SCH ×3 (09:48→21:26)
[2016-12-01] MEDS ORDERED: NS 275ml ONE (10:23)
[2016-12-01] MEDS ORDERED: D5W 275ml ONE (10:23)
--- NOTE | 2016-12-01 11:07 | Pulmonolgy Critical Care Note ---
Critical Care - Asmt/Plan Problems: (1) Acute and chronic respiratory failure (2) Anasarca (3) ATN (acute tubular necrosis) (4) Atrial fibrillation (5) Morbid obesity (6) Pickwickian syndrome Respiratory: monitor respiratory rate Cardiac: continue to monitor HR/BP Renal: F/U I&O, keep IV fluid Infectious Disease: check cultures, continue antibiotics Gastrointestinal: hold feedings, other - start TPN Endocrine: monitor blood sugar, continue sliding scale insulin Hematologic: monitor H/H, transfuse if hgb<8.5 Neurologic: PRN Ativan, PRN Morphine, keep patient comfortable Affect: PRN ativan Prophylaxis: Protonix, Heparin Notes Reviewed: workers compensation specialist, renal 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: nurses, consultants, case monitorsoftware engineering manager - Objective Last 24 Hour Vital Signs Date Time Temp Pulse Resp B/P (MAP) Pulse Ox O2 Delivery O2 Flow Rate FiO2 12/01/16 11:00 92 17 93/65 98 Mechanical Ventilator 60 12/01/16 10:00 97 18 89/61 95 Mechanical Ventilator 60 12/01/16 09:19 93 14 65 12/01/16 09:00 82 18 85/55 100 Mechanical Ventilator 60 12/01/16 08:26 Mechanical Ventilator 50 12/01/16 08:00 98.4 89 14 93/50 98 Mechanical Ventilator 50 12/01/16 08:00 85 12/01/16 08:00 50 12/01/16 07:25 92 14 50 12/01/16 07:00 70 18 83/44 100 Mechanical Ventilator 50 12/01/16 06:00 92 18 84/45 100 Mechanical Ventilator 50 12/01/16 05:00 91 18 86/44 100 Mechanical Ventilator 50 12/01/16 04:34 93 14 50 12/01/16 04:00 99.0 75 18 93/56 99 Mechanical Ventilator 50 12/01/16 04:00 95 12/01/16 04:00 50 12/01/16 03:25 70 14 50 12/01/16 03:00 68 18 80/36 100 Mechanical Ventilator 50 12/01/16 02:00 70 18 83/36 100 Mechanical Ventilator 50 12/01/16 01:29 69 14 50 12/01/16 01:00 70 18 81/40 100 Mechanical Ventilator 50 12/01/16 01:00 50 12/01/16 00:00 69 12/01/16 00:00 60 12/01/16 00:00 99.1 61 18 87/46 99 Mechanical Ventilator 60 11/30/16 23:22 61 14 60 11/30/16 23:00 66 18 84/38 100 Mechanical Ventilator 70 11/30/16 22:00 73 18 82/38 100 Mechanical Ventilator 70 11/30/16 21:20 86 16 70 11/30/16 21:00 79 18 77/39 100 Mechanical Ventilator 70 11/30/16 20:00 99.0 77 18 83/48 99 Mechanical Ventilator 70 11/30/16 20:00 79 11/30/16 20:00 70 11/30/16 19:31 89 16 70 11/30/16 19:00 79 22 90/42 100 Mechanical Ventilator 80 11/30/16 18:00 71 25 75/41 99 Mechanical Ventilator 80 11/30/16 17:00 79 18 83/48 99 Mechanical Ventilator 80 11/30/16 16:58 77 14 70 11/30/16 16:00 99.2 77 18 85/48 99 Mechanical Ventilator 80 11/30/16 16:00 76 11/30/16 16:00 95 11/30/16 15:00 79 18 85/50 99 Mechanical Ventilator 80 11/30/16 14:50 102 14 80 11/30/16 14:00 91 18 81/61 99 Mechanical Ventilator 95 11/30/16 13:00 110 18 81/51 100 Mechanical Ventilator 95 11/30/16 12:45 103 16 90 11/30/16 12:00 98 11/30/16 12:00 95 11/30/16 12:00 98.6 103 23 90/34 100 Mechanical Ventilator 95 Status: awake Condition: critical HEENT: atraumatic Neck: full ROM Lungs: chest wall tender Heart: HR/BP stable Abdomen: soft, non-tender Extremities: no C/C/E, edema Decubiti: location Critical Care - Subjective ROS Limited/Unobtainable: No Interval Events: cxr worsened Condition: critical EKG Rhythm: Sinus Rhythm FI02: 60 Vent Support Breath Rate: 14 Vent Support Mode: AC Vent Tidal Volume: 600 Sputum Amount: Large PEEP: 5.0 PIP: 62 I&O: Intake and Output 12/01/16 12/02/16 19:00 07:00 Output Total 0 ml Balance 0 ml Output Urine Total 0 ml # Bowel Movements 1 CXR: worsening right infiltrate. ET-Tube: 6.0 ET Position: 15 Labs: Laboratory Tests Test 12/01/16 04:00 12/01/16 05:00 White Blood Count 9.9 K/UL (4.8-10.8) Red Blood Count 2.62 M/UL (4.20-5.40) L Hemoglobin 7.9 G/DL (12.0-16.0) L Hematocrit 26.1 % (37.0-47.0) L Mean Corpuscular Volume 99 FL (80-99) Mean Corpuscular Hemoglobin 30.0 PG (27.0-31.0) Mean Corpuscular Hemoglobin Concent 30.2 G/DL (32.0-36.0) L Red Cell Distribution Width 18.9 % (11.6-14.8) H Platelet Count 146 K/UL (150-450) L Mean Platelet Volume 7.1 FL (6.5-10.1) Neutrophils (%) (Auto) % (45.0-75.0) Lymphocytes (%) (Auto) % (20.0-45.0) Monocytes (%) (Auto) % (1.0-10.0) Eosinophils (%) (Auto) % (0.0-3.0) Basophils (%) (Auto) % (0.0-2.0) Differential Total Cells Counted 100 Neutrophils % (Manual) 71 % (45-75) Lymphocytes % (Manual) 13 % (20-45) L Monocytes % (Manual) 10 % (1-10) Eosinophils % (Manual) 6 % (0-3) H Basophils % (Manual) 0 % (0-2) Band Neutrophils 0 % (0-8) Platelet Estimate Adequate Platelet Morphology Normal Hypochromasia 1+ Anisocytosis 1+ Sodium Level 148 MMOL/L (136-145) H Potassium Level 3.6 MMOL/L (3.5-5.1) Chloride Level 107 MMOL/L (98-107) Carbon Dioxide Level 31 MMOL/L (21-32) Anion Gap 10 mmol/L (5-15) Blood Urea Nitrogen 28 mg/dL (7-18) H Creatinine 3.6 MG/DL (0.55-1.30) H Estimat Glomerular Filtration Rate mL/min (>60) Glucose Level 80 MG/DL (74-106) Calcium Level 8.3 MG/DL (8.5-10.1) L Total Bilirubin 0.9 MG/DL (0.2-1.0) Aspartate Amino Transf (AST/SGOT) 13 U/L (15-37) L Alanine Aminotransferase (ALT/SGPT) < 6 U/L (12-78) L Alkaline Phosphatase 59 U/L (46-116) Pro-B-Type Natriuretic Peptide > 79839 pg/mL (0-125) H Total Protein 6.3 G/DL (6.4-8.2) L Albumin 1.9 G/DL (3.4-5.0) L Globulin 4.4 g/dL Albumin/Globulin Ratio 0.4 (1.0-2.7) L Stool Occult Blood Pending ARASH MIRANDA Dec 01, 2016 11:07
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
--- NOTE | 2016-12-01 13:50 | Diagnostic Imaging Report ---
Indication: DYSPNEA Technique: One view of the chest Comparison: 11/30/2016 Findings: Right mid and lower lung infiltrates appear slightly improved but persist. Left lung and pleural space are probably clear. Tracheostomy, right jugular temporalis catheter remain. Cardiomegaly persists Impression: Slightly improved resistive right mid and lower lung infiltrates Other stable findings as described, over one day
--- NOTE | 2016-12-01 16:04 | GI Progress Note ---
Assessment/Plan Problems: (1) Positive occult stool blood test ICD Codes: R19.5 - Other fecal abnormalities SNOMED: 01138519, 323844362 (2) Morbid obesity ICD Codes: E66.01 - Morbid (severe) obesity due to excess calories SNOMED: 100778871, 93655709597602 (3) Anemia ICD Codes: D64.9 - Anemia, unspecified SNOMED: 912711150 (4) PEG (percutaneous endoscopic gastrostomy) adjustment/replacement/removal ICD Codes: Z43.1 - Encounter for attention to gastrostomy SNOMED: 666345933, 604535195 Status: unchanged Status Narrative 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 Dr. Noriega. Assessment/Plan PEG cancelled by anesthesia >> patient status is not optimized at this time, will reschedule when stable. consider NGT >> refused by patient cont current plan of care fu pulmonary recs bowel regime ppi fu labs Subjective Subjective limitecd hungry Objective Last 24 Hour Vital Signs Date Time Temp Pulse Resp B/P (MAP) Pulse Ox O2 Delivery O2 Flow Rate FiO2 12/01/16 15:00 102 20 89/54 96 Mechanical Ventilator 65 12/01/16 14:32 108 14 65 12/01/16 14:00 107 20 85/58 90 Mechanical Ventilator 65 12/01/16 13:00 113 21 87/60 90 Mechanical Ventilator 65 12/01/16 12:43 103 19 65 12/01/16 12:00 65 12/01/16 12:00 110 12/01/16 12:00 97.8 93 20 70/38 98 Mechanical Ventilator 65 12/01/16 11:15 103 14 65 12/01/16 11:00 92 17 93/65 98 Mechanical Ventilator 60 12/01/16 10:00 97 18 89/61 95 Mechanical Ventilator 60 12/01/16 09:19 93 14 65 12/01/16 09:00 82 18 85/55 100 Mechanical Ventilator 60 12/01/16 08:26 Mechanical Ventilator 50 12/01/16 08:00 98.4 89 14 93/50 98 Mechanical Ventilator 50 12/01/16 08:00 85 12/01/16 08:00 50 12/01/16 07:25 92 14 50 12/01/16 07:00 70 18 83/44 100 Mechanical Ventilator 50 12/01/16 06:00 92 18 84/45 100 Mechanical Ventilator 50 12/01/16 05:00 91 18 86/44 100 Mechanical Ventilator 50 12/01/16 04:34 93 14 50 12/01/16 04:00 99.0 75 18 93/56 99 Mechanical Ventilator 50 12/01/16 04:00 95 12/01/16 04:00 50 12/01/16 03:25 70 14 50 12/01/16 03:00 68 18 80/36 100 Mechanical Ventilator 50 12/01/16 02:00 70 18 83/36 100 Mechanical Ventilator 50 12/01/16 01:29 69 14 50 12/01/16 01:00 70 18 81/40 100 Mechanical Ventilator 50 12/01/16 01:00 50 12/01/16 00:00 69 12/01/16 00:00 60 12/01/16 00:00 99.1 61 18 87/46 99 Mechanical Ventilator 60 11/30/16 23:22 61 14 60 11/30/16 23:00 66 18 84/38 100 Mechanical Ventilator 70 11/30/16 22:00 73 18 82/38 100 Mechanical Ventilator 70 11/30/16 21:20 86 16 70 11/30/16 21:00 79 18 77/39 100 Mechanical Ventilator 70 11/30/16 20:00 99.0 77 18 83/48 99 Mechanical Ventilator 70 11/30/16 20:00 79 11/30/16 20:00 70 11/30/16 19:31 89 16 70 11/30/16 19:00 79 22 90/42 100 Mechanical Ventilator 80 11/30/16 18:00 71 25 75/41 99 Mechanical Ventilator 80 11/30/16 17:00 79 18 83/48 99 Mechanical Ventilator 80 11/30/16 16:58 77 14 70 Intake and Output 12/01/16 12/02/16 19:00 07:00 Intake Total 3000 ml Output Total 10 ml Balance 2990 ml Hemodialysis 3000 ml Output Urine Total 10 ml # Bowel Movements 3 Laboratory Tests Test 12/01/16 04:00 12/01/16 05:00 White Blood Count 9.9 K/UL (4.8-10.8) Red Blood Count 2.62 M/UL (4.20-5.40) L Hemoglobin 7.9 G/DL (12.0-16.0) L Hematocrit 26.1 % (37.0-47.0) L Mean Corpuscular Volume 99 FL (80-99) Mean Corpuscular Hemoglobin 30.0 PG (27.0-31.0) Mean Corpuscular Hemoglobin Concent 30.2 G/DL (32.0-36.0) L Red Cell Distribution Width 18.9 % (11.6-14.8) H Platelet Count 146 K/UL (150-450) L Mean Platelet Volume 7.1 FL (6.5-10.1) Neutrophils (%) (Auto) % (45.0-75.0) Lymphocytes (%) (Auto) % (20.0-45.0) Monocytes (%) (Auto) % (1.0-10.0) Eosinophils (%) (Auto) % (0.0-3.0) Basophils (%) (Auto) % (0.0-2.0) Differential Total Cells Counted 100 Neutrophils % (Manual) 71 % (45-75) Lymphocytes % (Manual) 13 % (20-45) L Monocytes % (Manual) 10 % (1-10) Eosinophils % (Manual) 6 % (0-3) H Basophils % (Manual) 0 % (0-2) Band Neutrophils 0 % (0-8) Platelet Estimate Adequate Platelet Morphology Normal Hypochromasia 1+ Anisocytosis 1+ Sodium Level 148 MMOL/L (136-145) H Potassium Level 3.6 MMOL/L (3.5-5.1) Chloride Level 107 MMOL/L (98-107) Carbon Dioxide Level 31 MMOL/L (21-32) Anion Gap 10 mmol/L (5-15) Blood Urea Nitrogen 28 mg/dL (7-18) H Creatinine 3.6 MG/DL (0.55-1.30) H Estimat Glomerular Filtration Rate mL/min (>60) Glucose Level 80 MG/DL (74-106) Calcium Level 8.3 MG/DL (8.5-10.1) L Phosphorus Level 3.6 MG/DL (2.5-4.9) Total Bilirubin 0.9 MG/DL (0.2-1.0) Aspartate Amino Transf (AST/SGOT) 13 U/L (15-37) L Alanine Aminotransferase (ALT/SGPT) < 6 U/L (12-78) L Alkaline Phosphatase 59 U/L (46-116) Pro-B-Type Natriuretic Peptide > 13464 pg/mL (0-125) H Total Protein 6.3 G/DL (6.4-8.2) L Albumin 1.9 G/DL (3.4-5.0) L Globulin 4.4 g/dL Albumin/Globulin Ratio 0.4 (1.0-2.7) L Stool Occult Blood Positive (NEGATIVE) Height (Feet): 5 Height (Inches): 4.00 Weight (Pounds): 347 General Appearance: WD/WN, no apparent distress, alert, morbidly obese Cardiovascular: normal rate Respiratory/Chest: no respiratory distress, other - mech vent Abdominal Exam: normal bowel sounds, non tender, soft Kateryna Sherman N.P. Dec 01, 2016 16:04
--- NOTE | 2016-12-01 19:35 | Cardiology Progress Note ---
Assessment/Plan Assessment/Plan 1. Permanent atrial fibrillation. 2. Chronic respiratory failure, on a mechanical ventilator. 3. Cor pulmonale. 4. Pulmonary hypertension. 5. Acute renal failure, now on dialysis. 6. Anemia. 7. Significant edema. 8. Hypoalbuminemia. bp now low got ivf adn prbc now better has edema still on vent anticoagulation for stroke prevention when no contraindication stool ob ordered no results yet had UF today 3 l per rn Subjective ROS Limited/Unobtainable: Yes Subjective not communicative tod ay sleepy Objective Last 24 Hour Vital Signs Date Time Temp Pulse Resp B/P (MAP) Pulse Ox O2 Delivery O2 Flow Rate FiO2 12/01/16 19:23 99 14 65 12/01/16 19:00 98.6 98 20 107/51 94 Mechanical Ventilator 65 12/01/16 18:00 100 20 92/55 96 Mechanical Ventilator 65 12/01/16 17:06 105 14 100 12/01/16 17:00 105 14 119/70 96 Mechanical Ventilator 100 12/01/16 16:00 65 12/01/16 16:00 102 12/01/16 16:00 99.0 103 14 90/50 93 Mechanical Ventilator 65 12/01/16 15:00 102 20 89/54 96 Mechanical Ventilator 65 12/01/16 14:32 108 14 65 12/01/16 14:00 107 20 85/58 90 Mechanical Ventilator 65 12/01/16 13:00 113 21 87/60 90 Mechanical Ventilator 65 12/01/16 12:43 103 19 65 12/01/16 12:00 65 12/01/16 12:00 110 12/01/16 12:00 97.8 93 20 70/38 98 Mechanical Ventilator 65 12/01/16 11:15 103 14 65 12/01/16 11:00 92 17 93/65 98 Mechanical Ventilator 60 12/01/16 10:00 97 18 89/61 95 Mechanical Ventilator 60 12/01/16 09:19 93 14 65 12/01/16 09:00 82 18 85/55 100 Mechanical Ventilator 60 12/01/16 08:26 Mechanical Ventilator 50 12/01/16 08:00 98.4 89 14 93/50 98 Mechanical Ventilator 50 12/01/16 08:00 85 12/01/16 08:00 50 12/01/16 07:25 92 14 50 12/01/16 07:00 70 18 83/44 100 Mechanical Ventilator 50 12/01/16 06:00 92 18 84/45 100 Mechanical Ventilator 50 12/01/16 05:00 91 18 86/44 100 Mechanical Ventilator 50 12/01/16 04:34 93 14 50 12/01/16 04:00 99.0 75 18 93/56 99 Mechanical Ventilator 50 12/01/16 04:00 95 12/01/16 04:00 50 12/01/16 03:25 70 14 50 12/01/16 03:00 68 18 80/36 100 Mechanical Ventilator 50 12/01/16 02:00 70 18 83/36 100 Mechanical Ventilator 50 12/01/16 01:29 69 14 50 12/01/16 01:00 70 18 81/40 100 Mechanical Ventilator 50 12/01/16 01:00 50 12/01/16 00:00 69 12/01/16 00:00 60 12/01/16 00:00 99.1 61 18 87/46 99 Mechanical Ventilator 60 11/30/16 23:22 61 14 60 11/30/16 23:00 66 18 84/38 100 Mechanical Ventilator 70 11/30/16 22:00 73 18 82/38 100 Mechanical Ventilator 70 11/30/16 21:20 86 16 70 11/30/16 21:00 79 18 77/39 100 Mechanical Ventilator 70 11/30/16 20:00 99.0 77 18 83/48 99 Mechanical Ventilator 70 11/30/16 20:00 79 11/30/16 20:00 70 General Appearance: no apparent distress Cardiovascular: irregularly irregular Respiratory/Chest: lungs clear, normal breath sounds Abdomen: normal bowel sounds, non tender, soft Extremities: severe edema Intake and Output 12/01/16 12/02/16 19:00 07:00 Intake Total 3250 ml Output Total 10 ml Balance 3240 ml Blood Product 250 ml Hemodialysis 3000 ml Output Urine Total 10 ml # Bowel Movements 4 Laboratory Tests Test 12/01/16 04:00 12/01/16 05:00 12/01/16 15:00 White Blood Count 9.9 K/UL (4.8-10.8) Red Blood Count 2.62 M/UL (4.20-5.40) L Hemoglobin 7.9 G/DL (12.0-16.0) L Hematocrit 26.1 % (37.0-47.0) L Mean Corpuscular Volume 99 FL (80-99) Mean Corpuscular Hemoglobin 30.0 PG (27.0-31.0) Mean Corpuscular Hemoglobin Concent 30.2 G/DL (32.0-36.0) L Red Cell Distribution Width 18.9 % (11.6-14.8) H Platelet Count 146 K/UL (150-450) L Mean Platelet Volume 7.1 FL (6.5-10.1) Neutrophils (%) (Auto) % (45.0-75.0) Lymphocytes (%) (Auto) % (20.0-45.0) Monocytes (%) (Auto) % (1.0-10.0) Eosinophils (%) (Auto) % (0.0-3.0) Basophils (%) (Auto) % (0.0-2.0) Differential Total Cells Counted 100 Neutrophils % (Manual) 71 % (45-75) Lymphocytes % (Manual) 13 % (20-45) L Monocytes % (Manual) 10 % (1-10) Eosinophils % (Manual) 6 % (0-3) H Basophils % (Manual) 0 % (0-2) Band Neutrophils 0 % (0-8) Platelet Estimate Adequate Platelet Morphology Normal Hypochromasia 1+ Anisocytosis 1+ Sodium Level 148 MMOL/L (136-145) H Potassium Level 3.6 MMOL/L (3.5-5.1) Chloride Level 107 MMOL/L (98-107) Carbon Dioxide Level 31 MMOL/L (21-32) Anion Gap 10 mmol/L (5-15) Blood Urea Nitrogen 28 mg/dL (7-18) H Creatinine 3.6 MG/DL (0.55-1.30) H Estimat Glomerular Filtration Rate mL/min (>60) Glucose Level 80 MG/DL (74-106) Calcium Level 8.3 MG/DL (8.5-10.1) L Phosphorus Level 3.6 MG/DL (2.5-4.9) Total Bilirubin 0.9 MG/DL (0.2-1.0) Aspartate Amino Transf (AST/SGOT) 13 U/L (15-37) L Alanine Aminotransferase (ALT/SGPT) < 6 U/L (12-78) L Alkaline Phosphatase 59 U/L (46-116) Pro-B-Type Natriuretic Peptide > 32097 pg/mL (0-125) H Total Protein 6.3 G/DL (6.4-8.2) L Albumin 1.9 G/DL (3.4-5.0) L Globulin 4.4 g/dL Albumin/Globulin Ratio 0.4 (1.0-2.7) L Stool Occult Blood Positive (NEGATIVE) Pending BRIANA TELLES Dec 01, 2016 19:35
[2016-12-01] MEDS: Dyna-Hex 2% Top Sol 2oz TOPIC SCH (20:26)
--- NOTE | 2016-12-01 20:39 | General Progress Note ---
Assessment/Plan Status: progressing Assessment/Plan This is a 76-year-old, morbidly obese female, admitted with anasarca and cellulitis of the lower leg. The patient was admitted to the directr observation unit on the monitor with the following medical problems. now transfered to icu as of 11-14-16, co of pruritis 1. Anasarca. She appears to be markedly swollen. She will need diuresis. Place the patient on Lasix 20 mg intravenous for now q.12 hours. Cardiology and Pulmonary on the case. We will follow orders. Check laboratory studies daily. lasix drip was discontinued in am, HD started 2. Chronic hypercapnic respiratory failure. Continue with vent support per Pulmonary. will discuss with pulmonary regarding trach issues 3 anemia. s./p transfusion of PRBC Continue monitoring CBC daily. patient to start procrit per nephrology 4. Pulmonary hypertension. hold Eliquis 2.5 mg twice a day until trach is refitted 5. Chronic kidney disease. We will monitor BUN and creatinine. Gentle diuresis for now. Nephrology has been consulted. further workup per nephrology. avoid nephrotoxic agents HD to start soon 6. DVT prophylaxis. The patient is on Eliquis. The patient is Full 7. nutrition: patient didn't tolerate NGT placment, patient is now agreeable to PEG placement, all questions were answered including risks and benefits, patient agrees to proceed Code. 8. Alkalosis: on SIMV monitor labs 9. Generalized anxiety: ativna prn, counselled for 15min 10. constipation: prn enema, continue with colace and MiraLax had revesion of trach on 11-23-16 discussed with icu nurse benadryl 25 mg iv q 6 prn itching NPO still except ice chips continue HD per nephrology possible need for trach revision again by Dr. Powell tomorrow PEG to be placed when medically more stable discussed with ICU nursing staff Subjective Date patient seen: Dec 01, 2016 ROS Limited/Unobtainable: Yes Allergies: Coded Allergies: AMOXICILLIN (Verified Allergy, Mild, RASH, 09/30/16) PENICILLINS (Unverified Allergy, Unknown, 09/30/16) Subjective patient continues to get ICU care awaiting Dr. Powell to evaluate for trach exchange Objective Last 24 Hour Vital Signs Date Time Temp Pulse Resp B/P (MAP) Pulse Ox O2 Delivery O2 Flow Rate FiO2 12/01/16 20:00 65 12/01/16 20:00 98.6 98 16 83/47 98 Mechanical Ventilator 65 12/01/16 19:23 99 14 65 12/01/16 19:00 98.6 98 20 107/51 94 Mechanical Ventilator 65 12/01/16 18:00 100 20 92/55 96 Mechanical Ventilator 65 12/01/16 17:06 105 14 100 12/01/16 17:00 105 14 119/70 96 Mechanical Ventilator 100 12/01/16 16:00 65 12/01/16 16:00 102 12/01/16 16:00 99.0 103 14 90/50 93 Mechanical Ventilator 65 12/01/16 15:00 102 20 89/54 96 Mechanical Ventilator 65 12/01/16 14:32 108 14 65 12/01/16 14:00 107 20 85/58 90 Mechanical Ventilator 65 12/01/16 13:00 113 21 87/60 90 Mechanical Ventilator 65 12/01/16 12:43 103 19 65 12/01/16 12:00 65 12/01/16 12:00 110 12/01/16 12:00 97.8 93 20 70/38 98 Mechanical Ventilator 65 12/01/16 11:15 103 14 65 12/01/16 11:00 92 17 93/65 98 Mechanical Ventilator 60 12/01/16 10:00 97 18 89/61 95 Mechanical Ventilator 60 12/01/16 09:19 93 14 65 12/01/16 09:00 82 18 85/55 100 Mechanical Ventilator 60 12/01/16 08:26 Mechanical Ventilator 50 12/01/16 08:00 98.4 89 14 93/50 98 Mechanical Ventilator 50 12/01/16 08:00 85 12/01/16 08:00 50 12/01/16 07:25 92 14 50 12/01/16 07:00 70 18 83/44 100 Mechanical Ventilator 50 12/01/16 06:00 92 18 84/45 100 Mechanical Ventilator 50 12/01/16 05:00 91 18 86/44 100 Mechanical Ventilator 50 12/01/16 04:34 93 14 50 12/01/16 04:00 99.0 75 18 93/56 99 Mechanical Ventilator 50 12/01/16 04:00 95 12/01/16 04:00 50 12/01/16 03:25 70 14 50 12/01/16 03:00 68 18 80/36 100 Mechanical Ventilator 50 12/01/16 02:00 70 18 83/36 100 Mechanical Ventilator 50 12/01/16 01:29 69 14 50 12/01/16 01:00 70 18 81/40 100 Mechanical Ventilator 50 12/01/16 01:00 50 12/01/16 00:00 69 12/01/16 00:00 60 12/01/16 00:00 99.1 61 18 87/46 99 Mechanical Ventilator 60 11/30/16 23:22 61 14 60 11/30/16 23:00 66 18 84/38 100 Mechanical Ventilator 70 11/30/16 22:00 73 18 82/38 100 Mechanical Ventilator 70 11/30/16 21:20 86 16 70 11/30/16 21:00 79 18 77/39 100 Mechanical Ventilator 70 Intake and Output 12/01/16 12/02/16 19:00 07:00 Intake Total 3250 ml Output Total 10 ml 0 ml Balance 3240 ml 0 ml Blood Product 250 ml Hemodialysis 3000 ml Output Urine Total 10 ml 0 ml # Bowel Movements 4 1 Laboratory Tests 12/01/16 04:00: White Blood Count 9.9, Red Blood Count 2.62L, Hemoglobin 7.9L, Hematocrit 26.1L , Mean Corpuscular Volume 99, Mean Corpuscular Hemoglobin 30.0, Mean Corpuscular Hemoglobin Concent 30.2L, Red Cell Distribution Width 18.9H, Platelet Count 146L, Mean Platelet Volume 7.1, Neutrophils (%) (Auto) , Lymphocytes (%) (Auto) , Monocytes (%) (Auto) , Eosinophils (%) (Auto) , Basophils (%) (Auto) , Differential Total Cells Counted 100, Neutrophils % ( Manual) 71, Lymphocytes % (Manual) 13L, Monocytes % (Manual) 10, Eosinophils % ( Manual) 6H, Basophils % (Manual) 0, Band Neutrophils 0, Platelet Estimate Adequate, Platelet Morphology Normal, Hypochromasia 1+, Anisocytosis 1+, Sodium Level 148H, Potassium Level 3.6, Chloride Level 107, Carbon Dioxide Level 31, Anion Gap 10, Blood Urea Nitrogen 28H, Creatinine 3.6H, Estimat Glomerular Filtration Rate , Glucose Level 80, Calcium Level 8.3L, Phosphorus Level 3.6, Total Bilirubin 0.9, Aspartate Amino Transf (AST/SGOT) 13L, Alanine Aminotransferase (ALT/SGPT) < 6L, Alkaline Phosphatase 59, Pro-B-Type Natriuretic Peptide > 11123X, Total Protein 6.3L, Albumin 1.9L, Globulin 4.4, Albumin/Globulin Ratio 0.4L 12/01/16 05:00: Stool Occult Blood Positive 12/01/16 15:00: Stool Occult Blood [Pending] Height (Feet): 5 Height (Inches): 4.00 Weight (Pounds): 347 General Appearance: mild distress, moderate distress, morbidly obese EENT: PERRL/EOMI, pharynx normal Neck: non-tender, supple Cardiovascular: normal rate, regular rhythm, no gallop/murmur, no JVD Respiratory/Chest: decreased breath sounds Abdomen: distended Extremities: swelling Edema: 3+ Arm (L), 3+ Arm (R), 4+ Leg (L), 4+ Leg (R), 4+ Pedal (L), 4+ Pedal ( R), 4+ Generalized Edema: severe edema Neurologic: health equipment servicer II-XII grossly normal, oriented x 3, responsive Skin: rash Lymphatic: normal anterior cervical (L), normal anterior cervical (R), normal posterior cervical (L), normal posterior cervical (R), normal submandibular (L) , normal submandibular (R), normal supraclavicular (L), normal supraclavicular ( R), normal axillary (L), normal axillary (R), normal inguinal (L), normal inguinal (R), normal other Manny Nolan MD Dec 01, 2016 20:39
[2016-12-01] MEDS: Epogen (for non ESRD use) SUBQ SCH (21:25)
--- NOTE | 2016-12-01 21:36 | General Progress Note ---
Assessment/Plan Assessment/Plan ASSESSMENT/RECS: # Coagulopathy 2/2 sepsis --> INR improving #. Anemia secondary to chronic disease. Continue to closely monitor. Work up reviewed --> s/p transfusion. watch counts, transfuse if hgb is below 8 # Positive occult blood. r/o gi bleed. gi following #. Anemia of kidney disease. Nephrology service following #. PEG tube placement, has been cancelled for now #. Chronic ventilator dependent #. Permanent atrial fibrillation. #. Cellulitis and chronic lymphedema of the bilateral lower extremities. #. Congestive heart failure. Subjective ROS Limited/Unobtainable: Yes Allergies: Coded Allergies: AMOXICILLIN (Verified Allergy, Mild, RASH, 09/30/16) PENICILLINS (Unverified Allergy, Unknown, 09/30/16) Subjective drop in hh Objective Last 24 Hour Vital Signs Date Time Temp Pulse Resp B/P (MAP) Pulse Ox O2 Delivery O2 Flow Rate FiO2 12/01/16 20:50 94 14 65 12/01/16 20:00 65 12/01/16 20:00 98 12/01/16 20:00 98.6 98 16 83/47 98 Mechanical Ventilator 65 12/01/16 19:23 99 14 65 12/01/16 19:00 98.6 98 20 107/51 94 Mechanical Ventilator 65 12/01/16 18:00 100 20 92/55 96 Mechanical Ventilator 65 12/01/16 17:06 105 14 100 12/01/16 17:00 105 14 119/70 96 Mechanical Ventilator 100 12/01/16 16:00 65 12/01/16 16:00 102 12/01/16 16:00 99.0 103 14 90/50 93 Mechanical Ventilator 65 12/01/16 15:00 102 20 89/54 96 Mechanical Ventilator 65 12/01/16 14:32 108 14 65 12/01/16 14:00 107 20 85/58 90 Mechanical Ventilator 65 12/01/16 13:00 113 21 87/60 90 Mechanical Ventilator 65 12/01/16 12:43 103 19 65 12/01/16 12:00 65 12/01/16 12:00 110 12/01/16 12:00 97.8 93 20 70/38 98 Mechanical Ventilator 65 12/01/16 11:15 103 14 65 12/01/16 11:00 92 17 93/65 98 Mechanical Ventilator 60 12/01/16 10:00 97 18 89/61 95 Mechanical Ventilator 60 12/01/16 09:19 93 14 65 12/01/16 09:00 82 18 85/55 100 Mechanical Ventilator 60 12/01/16 08:26 Mechanical Ventilator 50 12/01/16 08:00 98.4 89 14 93/50 98 Mechanical Ventilator 50 12/01/16 08:00 85 12/01/16 08:00 50 12/01/16 07:25 92 14 50 12/01/16 07:00 70 18 83/44 100 Mechanical Ventilator 50 12/01/16 06:00 92 18 84/45 100 Mechanical Ventilator 50 12/01/16 05:00 91 18 86/44 100 Mechanical Ventilator 50 12/01/16 04:34 93 14 50 12/01/16 04:00 99.0 75 18 93/56 99 Mechanical Ventilator 50 12/01/16 04:00 95 12/01/16 04:00 50 12/01/16 03:25 70 14 50 12/01/16 03:00 68 18 80/36 100 Mechanical Ventilator 50 12/01/16 02:00 70 18 83/36 100 Mechanical Ventilator 50 12/01/16 01:29 69 14 50 12/01/16 01:00 70 18 81/40 100 Mechanical Ventilator 50 12/01/16 01:00 50 12/01/16 00:00 69 12/01/16 00:00 60 12/01/16 00:00 99.1 61 18 87/46 99 Mechanical Ventilator 60 11/30/16 23:22 61 14 60 11/30/16 23:00 66 18 84/38 100 Mechanical Ventilator 70 11/30/16 22:00 73 18 82/38 100 Mechanical Ventilator 70 Intake and Output 12/01/16 12/02/16 19:00 07:00 Intake Total 3250 ml Output Total 10 ml 0 ml Balance 3240 ml 0 ml Blood Product 250 ml Hemodialysis 3000 ml Output Urine Total 10 ml 0 ml # Bowel Movements 4 1 Laboratory Tests 12/01/16 04:00: White Blood Count 9.9, Red Blood Count 2.62L, Hemoglobin 7.9L, Hematocrit 26.1L , Mean Corpuscular Volume 99, Mean Corpuscular Hemoglobin 30.0, Mean Corpuscular Hemoglobin Concent 30.2L, Red Cell Distribution Width 18.9H, Platelet Count 146L, Mean Platelet Volume 7.1, Neutrophils (%) (Auto) , Lymphocytes (%) (Auto) , Monocytes (%) (Auto) , Eosinophils (%) (Auto) , Basophils (%) (Auto) , Differential Total Cells Counted 100, Neutrophils % ( Manual) 71, Lymphocytes % (Manual) 13L, Monocytes % (Manual) 10, Eosinophils % ( Manual) 6H, Basophils % (Manual) 0, Band Neutrophils 0, Platelet Estimate Adequate, Platelet Morphology Normal, Hypochromasia 1+, Anisocytosis 1+, Sodium Level 148H, Potassium Level 3.6, Chloride Level 107, Carbon Dioxide Level 31, Anion Gap 10, Blood Urea Nitrogen 28H, Creatinine 3.6H, Estimat Glomerular Filtration Rate , Glucose Level 80, Calcium Level 8.3L, Phosphorus Level 3.6, Total Bilirubin 0.9, Aspartate Amino Transf (AST/SGOT) 13L, Alanine Aminotransferase (ALT/SGPT) < 6L, Alkaline Phosphatase 59, Pro-B-Type Natriuretic Peptide > 10159O, Total Protein 6.3L, Albumin 1.9L, Globulin 4.4, Albumin/Globulin Ratio 0.4L 12/01/16 05:00: Stool Occult Blood Positive 12/01/16 15:00: Stool Occult Blood [Pending] Height (Feet): 5 Height (Inches): 4.00 Weight (Pounds): 347 General Appearance: no apparent distress, lethargic EENT: TMs normal Respiratory/Chest: chest wall non-tender Abdomen: hypoactive bowel sounds Edema: trace edema 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
[2016-12-02] VITALS (24 sets, daily range): BP systolic 83–115; BP diastolic 40–66
[2016-12-02 05:25] LABS: BASOPHILS % (AUTO) 1.3 % (0.0-2.0); EOSINOPHILS % (AUTO) 2.2 % (0.0-3.0); LYMPHOCYTES % (AUTO) 9.4 % (20.0-45.0); MEAN CORPUSCULAR HEMOGLOBIN 30.2 PG (27.0-31.0); MEAN CORPUSCULAR HGB CONC 30.5 G/DL (32.0-36.0); MEAN CORPUSCULAR VOLUME 99 FL (80-99); MEAN PLATELET VOLUME 6.6 FL (6.5-10.1); MONOCYTES % (AUTO) 13.6 % (1.0-10.0); NEUTROPHILS % (AUTO) 73.5 % (45.0-75.0); PLATELET COUNT 141 K/UL (150-450); RED BLOOD COUNT 2.81 M/UL (4.20-5.40); RED CELL DISTRIBUTION WIDTH 19.1 % (11.6-14.8); WHITE BLOOD COUNT 9.7 K/UL (4.8-10.8)
[2016-12-02 05:32] LABS: INR 1.6 (0.9-1.1); PROTHROMBIN TIME 16.7 SEC (9.30-11.50)
[2016-12-02 06:15] LABS: ALANINE AMINOTRANSFERASE < 6 U/L (12-78); ALBUMIN/GLOBULIN RATIO 0.4 (1.0-2.7); ANION GAP 9 mmol/L (5-15); ASPARTATE AMINO TRANSFERASE 14 U/L (15-37); CALCIUM 8.3 MG/DL (8.5-10.1); CARBON DIOXIDE 31 MMOL/L (21-32); CHLORIDE 104 MMOL/L (98-107); CREATININE 3.1 MG/DL (0.55-1.30); POTASSIUM 3.6 MMOL/L (3.5-5.1); SODIUM 144 MMOL/L (136-145); TOTAL PROTEIN 6.6 G/DL (6.4-8.2)
[2016-12-02 06:16] LABS: BILIRUBIN,DIRECT 0.6 MG/DL (0.0-0.3)
[2016-12-02] MEDS: Midodrine 10mg tab ORAL SCH ×3 (06:59→21:44)
--- NOTE | 2016-12-02 09:33 | Diagnostic Imaging Report ---
Indication: DYSPNEA Technique: One view of the chest Comparison: 12/01/2016 Findings: The heart is enlarged. Bilateral predominantly perihilar persists are clear the left. Tracheostomy remains. There is likely a small amount of pleural fluid bilaterally. Right jugular temporary dialysis catheter remains. Findings are overall unchanged Impression: Unchanged, over one day, findings as above.
[2016-12-02] MEDS: Docusate 100mg cap ORAL SCH ×2 (09:41→18:00)
[2016-12-02] MEDS: Pantoprazole Inj IVP SCH (09:41)
[2016-12-02] MEDS: Miralax 17gm pkt ORAL SCH (09:41)
[2016-12-02] MEDS: Revatio 20mg tab ORAL SCH ×3 (09:45→18:00)
[2016-12-02] MEDS ORDERED: Tubing IV Blood Pump IV ONE (10:18)
[2016-12-02] MEDS ORDERED: NS 275ml ONE ×2 (10:18→15:32)
--- NOTE | 2016-12-02 10:42 | Infectious Diseases Prog Note ---
Assessment/Plan Assessment/Plan Abx: IV Vancomycin 11/11-11/12; 11/17-11/26 IV Cefepime 11/11-11/12 IV Ancef 11/12-11/28 Flagyl x1 11/11 Assesment: Cellulitis BLE and R arm- in the setting of chronic leg edema/venous stasis, s/ p Rx- Limited Venous duplex BLE (non diagnostic), no DVT R arm; much improved; Now residual venous stasis changes. -Bcx Neg Anasarca/ bilateral leg lymphedema -CXR 11/19: Interstitial edema/CHF unchanged Afebrile, no leukocytosis REnal insufficiency VRE colonzied COPD Diastolic CHF chronic resp failure, vent/trach dependent, Gtbue, pAfib, pleural effusion, MINA , CKD, GERD, morbid obesity, [facility] resident Plan: -Continue to monitor off abx -s/p 18d IV Ancef 11/28 -s/p 10 d IV Vancomycin 11/26 -extremity elevation -edema management -Monitor CBC/BMP, temperatures - vent support, trach care, aspiration precautions Thank you for this consultation. Will continue to follow along with you. 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 RN. Subjective Allergies: Coded Allergies: AMOXICILLIN (Verified Allergy, Mild, RASH, 09/30/16) PENICILLINS (Unverified Allergy, Unknown, 09/30/16) Subjective afebrile no leukocytosis remains in ICU Noticed that Ancef was dc'ed on 11/28 Objective Vital Signs Last 24 Hour Vital Signs Date Time Temp Pulse Resp B/P (MAP) Pulse Ox O2 Delivery O2 Flow Rate FiO2 12/02/16 08:58 68 14 60 12/02/16 07:30 85 17 60 12/02/16 07:00 78 14 99/45 99 Mechanical Ventilator 60 12/02/16 06:00 85 19 99/48 98 Mechanical Ventilator 60 12/02/16 05:04 92 19 60 12/02/16 05:00 101 17 102/59 96 Mechanical Ventilator 60 12/02/16 04:00 72 12/02/16 04:00 60 12/02/16 04:00 98.4 72 16 86/51 98 Mechanical Ventilator 60 12/02/16 03:25 68 14 60 12/02/16 03:00 70 15 92/60 96 Mechanical Ventilator 60 12/02/16 02:00 74 21 88/58 99 Mechanical Ventilator 60 12/02/16 01:16 73 14 60 12/02/16 01:00 72 16 92/66 99 Mechanical Ventilator 60 12/02/16 00:00 98.8 77 16 88/53 99 Mechanical Ventilator 60 12/02/16 00:00 65 12/02/16 00:00 77 12/01/16 23:00 86 19 84/45 97 Mechanical Ventilator 65 12/01/16 22:38 99 14 60 12/01/16 22:00 100 20 93/53 98 Mechanical Ventilator 65 12/01/16 21:00 83 19 97/60 98 Mechanical Ventilator 65 12/01/16 20:50 94 14 65 12/01/16 20:00 65 12/01/16 20:00 98 12/01/16 20:00 98.6 98 16 83/47 98 Mechanical Ventilator 65 12/01/16 19:23 99 14 65 12/01/16 19:00 98.6 98 20 107/51 94 Mechanical Ventilator 65 12/01/16 18:00 100 20 92/55 96 Mechanical Ventilator 65 12/01/16 17:06 105 14 100 12/01/16 17:00 105 14 119/70 96 Mechanical Ventilator 100 12/01/16 16:00 65 12/01/16 16:00 102 12/01/16 16:00 99.0 103 14 90/50 93 Mechanical Ventilator 65 12/01/16 15:00 102 20 89/54 96 Mechanical Ventilator 65 12/01/16 14:32 108 14 65 12/01/16 14:00 107 20 85/58 90 Mechanical Ventilator 65 12/01/16 13:00 113 21 87/60 90 Mechanical Ventilator 65 12/01/16 12:43 103 19 65 12/01/16 12:00 65 12/01/16 12:00 110 12/01/16 12:00 97.8 93 20 70/38 98 Mechanical Ventilator 65 12/01/16 11:15 103 14 65 12/01/16 11:00 92 17 93/65 98 Mechanical Ventilator 60 Height (Feet): 5 Height (Inches): 4.00 Weight (Pounds): 358 Objective General Appearance: WD/WN HEENT: trach in palce, Respiratory/Chest: chest wall non-tender, lungs clear Cardiovascular/Chest: normal peripheral pulses, normal rate Abdomen: normal bowel sounds, non tender Ext: anasarca; R > L LE swelling, both legs with blanching erythema anteriorly from distal leg up to below knee, +warmth, non TTP, no drainage; R arm swelling, erythematous,. background changes of chronic lymphedema on b/l legs; erythema and swelling improved Laboratory Tests Test 12/01/16 15:00 12/02/16 05:00 Stool Occult Blood Pending White Blood Count 9.7 K/UL (4.8-10.8) Red Blood Count 2.81 M/UL (4.20-5.40) L Hemoglobin 8.5 G/DL (12.0-16.0) L Hematocrit 27.8 % (37.0-47.0) L Mean Corpuscular Volume 99 FL (80-99) Mean Corpuscular Hemoglobin 30.2 PG (27.0-31.0) Mean Corpuscular Hemoglobin Concent 30.5 G/DL (32.0-36.0) L Red Cell Distribution Width 19.1 % (11.6-14.8) H Platelet Count 141 K/UL (150-450) L Mean Platelet Volume 6.6 FL (6.5-10.1) Neutrophils (%) (Auto) 73.5 % (45.0-75.0) Lymphocytes (%) (Auto) 9.4 % (20.0-45.0) L Monocytes (%) (Auto) 13.6 % (1.0-10.0) H Eosinophils (%) (Auto) 2.2 % (0.0-3.0) Basophils (%) (Auto) 1.3 % (0.0-2.0) Prothrombin Time 16.7 SEC (9.30-11.50) H Prothromb Time International Ratio 1.6 (0.9-1.1) H Sodium Level 144 MMOL/L (136-145) Potassium Level 3.6 MMOL/L (3.5-5.1) Chloride Level 104 MMOL/L (98-107) Carbon Dioxide Level 31 MMOL/L (21-32) Anion Gap 9 mmol/L (5-15) Blood Urea Nitrogen 22 mg/dL (7-18) H Creatinine 3.1 MG/DL (0.55-1.30) H Estimat Glomerular Filtration Rate mL/min (>60) Glucose Level 71 MG/DL (74-106) L Calcium Level 8.3 MG/DL (8.5-10.1) L Total Bilirubin 1.3 MG/DL (0.2-1.0) H Direct Bilirubin 0.6 MG/DL (0.0-0.3) H Aspartate Amino Transf (AST/SGOT) 14 U/L (15-37) L Alanine Aminotransferase (ALT/SGPT) < 6 U/L (12-78) L Alkaline Phosphatase 67 U/L (46-116) Pro-B-Type Natriuretic Peptide 55900 pg/mL (0-125) H Total Protein 6.6 G/DL (6.4-8.2) Albumin 2.0 G/DL (3.4-5.0) L Globulin 4.6 g/dL Albumin/Globulin Ratio 0.4 (1.0-2.7) L Current Medications Medications (Trade) Dose Ordered Sig/Kalyn Route PRN Reason Start Time Stop Time Status Last Admin Dose Admin Acetaminophen (Tylenol) 650 mg Q4H PRN ORAL Mild Pain/Temp > 100.5 11/14/16 08:00 12/12/16 07:59 12/01/16 13:18 Allopurinol (Allopurinol) 300 mg DAILY ORAL 11/16/16 10:00 12/16/16 09:59 12/02/16 09:41 Chlorhexidine Gluconate (Marni-Hex 2%) 1 applic Q24H TOPIC 11/27/16 20:00 12/27/16 19:59 12/01/16 20:26 Diphenhydramine HCl (Benadryl) 25 mg Q6H PRN IVP Itching 11/19/16 20:15 12/19/16 20:14 11/30/16 02:11 Docusate Sodium (Colace) 100 mg TWICE A DAY ORAL 11/14/16 09:00 12/12/16 08:59 12/02/16 09:41 Epoetin Santos (Procrit (for non ESRD use)) 10,000 units TUE-TUE-TUE SUBQ 11/17/16 21:00 12/17/16 20:59 12/01/16 21:25 Folic Acid (Folate) 1 mg DAILY ORAL 11/14/16 09:00 12/12/16 08:59 12/02/16 09:41 Gabapentin (Neurontin) 600 mg BID ORAL 11/14/16 09:00 12/14/16 08:59 12/02/16 09:41 Lorazepam (Ativan 2mg/ml 1ml) 2 mg Q2H PRN IV For Anxiety 11/29/16 13:15 12/06/16 13:14 11/29/16 13:20 Midodrine (Pro-Amatine) 10 mg EVERY 8 HOURS ORAL 12/01/16 22:00 12/21/16 12:59 12/02/16 06:59 Pantoprazole (Protonix) 40 mg DAILY IVP 11/14/16 09:00 12/12/16 08:59 12/02/16 09:41 Polyethylene Glycol (Miralax) 17 gm DAILY ORAL 11/14/16 09:00 12/12/16 08:59 12/02/16 09:41 Pravastatin Sodium (Pravachol) 20 mg BEDTIME ORAL 11/14/16 21:00 12/12/16 20:59 12/01/16 21:05 Sildenafil Citrate (Revatio) 20 mg THREE TIMES A DAY ORAL 11/14/16 09:00 12/12/16 08:59 12/02/16 09:45 Danielle Guo M.D. Dec 02, 2016 10:42
--- NOTE | 2016-12-02 11:17 | GI Progress Note ---
Assessment/Plan Problems: (1) Positive occult stool blood test ICD Codes: R19.5 - Other fecal abnormalities SNOMED: 86642707, 249631552 (2) Morbid obesity ICD Codes: E66.01 - Morbid (severe) obesity due to excess calories SNOMED: 371226873, 76441579027017 (3) Anemia ICD Codes: D64.9 - Anemia, unspecified SNOMED: 082753927 (4) PEG (percutaneous endoscopic gastrostomy) adjustment/replacement/removal ICD Codes: Z43.1 - Encounter for attention to gastrostomy SNOMED: 508437556, 564728368 Status: unchanged Status Narrative 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 Dr. Noriega. Assessment/Plan PEG cancelled by anesthesia >> will reschedule for tomorrow, will consider TPN if procedure is cancelled again. - maintain NPO + IVFs - hold all blood thinners Pt has been NPO 10+ days, NGT refused by patient. cont current plan of care fu pulmonary recs bowel regime ppi fu labs Subjective Subjective limitecd hungry Objective Last 24 Hour Vital Signs Date Time Temp Pulse Resp B/P (MAP) Pulse Ox O2 Delivery O2 Flow Rate FiO2 12/02/16 11:03 102 16 60 12/02/16 08:58 68 14 60 12/02/16 07:30 85 17 60 12/02/16 07:00 78 14 99/45 99 Mechanical Ventilator 60 12/02/16 06:00 85 19 99/48 98 Mechanical Ventilator 60 12/02/16 05:04 92 19 60 12/02/16 05:00 101 17 102/59 96 Mechanical Ventilator 60 12/02/16 04:00 72 12/02/16 04:00 60 12/02/16 04:00 98.4 72 16 86/51 98 Mechanical Ventilator 60 12/02/16 03:25 68 14 60 12/02/16 03:00 70 15 92/60 96 Mechanical Ventilator 60 12/02/16 02:00 74 21 88/58 99 Mechanical Ventilator 60 12/02/16 01:16 73 14 60 12/02/16 01:00 72 16 92/66 99 Mechanical Ventilator 60 12/02/16 00:00 98.8 77 16 88/53 99 Mechanical Ventilator 60 12/02/16 00:00 65 12/02/16 00:00 77 12/01/16 23:00 86 19 84/45 97 Mechanical Ventilator 65 12/01/16 22:38 99 14 60 12/01/16 22:00 100 20 93/53 98 Mechanical Ventilator 65 12/01/16 21:00 83 19 97/60 98 Mechanical Ventilator 65 12/01/16 20:50 94 14 65 12/01/16 20:00 65 12/01/16 20:00 98 12/01/16 20:00 98.6 98 16 83/47 98 Mechanical Ventilator 65 12/01/16 19:23 99 14 65 12/01/16 19:00 98.6 98 20 107/51 94 Mechanical Ventilator 65 12/01/16 18:00 100 20 92/55 96 Mechanical Ventilator 65 12/01/16 17:06 105 14 100 12/01/16 17:00 105 14 119/70 96 Mechanical Ventilator 100 12/01/16 16:00 65 12/01/16 16:00 102 12/01/16 16:00 99.0 103 14 90/50 93 Mechanical Ventilator 65 12/01/16 15:00 102 20 89/54 96 Mechanical Ventilator 65 12/01/16 14:32 108 14 65 12/01/16 14:00 107 20 85/58 90 Mechanical Ventilator 65 12/01/16 13:00 113 21 87/60 90 Mechanical Ventilator 65 12/01/16 12:43 103 19 65 12/01/16 12:00 65 12/01/16 12:00 110 12/01/16 12:00 97.8 93 20 70/38 98 Mechanical Ventilator 65 12/01/16 11:15 103 14 65 Laboratory Tests Test 12/01/16 15:00 12/02/16 05:00 Stool Occult Blood Pending White Blood Count 9.7 K/UL (4.8-10.8) Red Blood Count 2.81 M/UL (4.20-5.40) L Hemoglobin 8.5 G/DL (12.0-16.0) L Hematocrit 27.8 % (37.0-47.0) L Mean Corpuscular Volume 99 FL (80-99) Mean Corpuscular Hemoglobin 30.2 PG (27.0-31.0) Mean Corpuscular Hemoglobin Concent 30.5 G/DL (32.0-36.0) L Red Cell Distribution Width 19.1 % (11.6-14.8) H Platelet Count 141 K/UL (150-450) L Mean Platelet Volume 6.6 FL (6.5-10.1) Neutrophils (%) (Auto) 73.5 % (45.0-75.0) Lymphocytes (%) (Auto) 9.4 % (20.0-45.0) L Monocytes (%) (Auto) 13.6 % (1.0-10.0) H Eosinophils (%) (Auto) 2.2 % (0.0-3.0) Basophils (%) (Auto) 1.3 % (0.0-2.0) Prothrombin Time 16.7 SEC (9.30-11.50) H Prothromb Time International Ratio 1.6 (0.9-1.1) H Sodium Level 144 MMOL/L (136-145) Potassium Level 3.6 MMOL/L (3.5-5.1) Chloride Level 104 MMOL/L (98-107) Carbon Dioxide Level 31 MMOL/L (21-32) Anion Gap 9 mmol/L (5-15) Blood Urea Nitrogen 22 mg/dL (7-18) H Creatinine 3.1 MG/DL (0.55-1.30) H Estimat Glomerular Filtration Rate mL/min (>60) Glucose Level 71 MG/DL (74-106) L Calcium Level 8.3 MG/DL (8.5-10.1) L Total Bilirubin 1.3 MG/DL (0.2-1.0) H Direct Bilirubin 0.6 MG/DL (0.0-0.3) H Aspartate Amino Transf (AST/SGOT) 14 U/L (15-37) L Alanine Aminotransferase (ALT/SGPT) < 6 U/L (12-78) L Alkaline Phosphatase 67 U/L (46-116) Pro-B-Type Natriuretic Peptide 54588 pg/mL (0-125) H Total Protein 6.6 G/DL (6.4-8.2) Albumin 2.0 G/DL (3.4-5.0) L Globulin 4.6 g/dL Albumin/Globulin Ratio 0.4 (1.0-2.7) L Height (Feet): 5 Height (Inches): 4.00 Weight (Pounds): 358 General Appearance: alert, morbidly obese Cardiovascular: normal rate Respiratory/Chest: normal breath sounds, no respiratory distress, other - mech vent Abdominal Exam: normal bowel sounds, non tender, soft Extremities: normal range of motion, non-tender Kateryna Sherman N.P. Dec 02, 2016 11:17
--- NOTE | 2016-12-02 11:27 | Pulmonolgy Critical Care Note ---
Critical Care - Asmt/Plan Problems: (1) Acute and chronic respiratory failure (2) Anasarca (3) ATN (acute tubular necrosis) (4) Atrial fibrillation (5) Morbid obesity (6) Pickwickian syndrome Respiratory: monitor respiratory rate, adjust FIO2, CXR Cardiac: continue to monitor HR/BP Renal: F/U I&O, keep IV fluid, check electrolytes, other - iv fluids by renal Infectious Disease: check cultures, continue antibiotics Gastrointestinal: abdominal imaging - feeding, other Endocrine: monitor blood sugar, continue sliding scale insulin Hematologic: monitor H/H, transfuse if hgb<8.5 Neurologic: PRN Ativan, PRN Morphine, keep patient comfortable Time Spent (Minutes): 40 Notes Reviewed: renal 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: nurses, consultants, 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 - Objective Last 24 Hour Vital Signs Date Time Temp Pulse Resp B/P (MAP) Pulse Ox O2 Delivery O2 Flow Rate FiO2 12/02/16 11:03 102 16 60 12/02/16 08:58 68 14 60 12/02/16 07:30 85 17 60 12/02/16 07:00 78 14 99/45 99 Mechanical Ventilator 60 12/02/16 06:00 85 19 99/48 98 Mechanical Ventilator 60 12/02/16 05:04 92 19 60 12/02/16 05:00 101 17 102/59 96 Mechanical Ventilator 60 12/02/16 04:00 72 12/02/16 04:00 60 12/02/16 04:00 98.4 72 16 86/51 98 Mechanical Ventilator 60 12/02/16 03:25 68 14 60 12/02/16 03:00 70 15 92/60 96 Mechanical Ventilator 60 12/02/16 02:00 74 21 88/58 99 Mechanical Ventilator 60 12/02/16 01:16 73 14 60 12/02/16 01:00 72 16 92/66 99 Mechanical Ventilator 60 12/02/16 00:00 98.8 77 16 88/53 99 Mechanical Ventilator 60 12/02/16 00:00 65 12/02/16 00:00 77 12/01/16 23:00 86 19 84/45 97 Mechanical Ventilator 65 12/01/16 22:38 99 14 60 12/01/16 22:00 100 20 93/53 98 Mechanical Ventilator 65 12/01/16 21:00 83 19 97/60 98 Mechanical Ventilator 65 12/01/16 20:50 94 14 65 12/01/16 20:00 65 12/01/16 20:00 98 12/01/16 20:00 98.6 98 16 83/47 98 Mechanical Ventilator 65 12/01/16 19:23 99 14 65 12/01/16 19:00 98.6 98 20 107/51 94 Mechanical Ventilator 65 12/01/16 18:00 100 20 92/55 96 Mechanical Ventilator 65 12/01/16 17:06 105 14 100 12/01/16 17:00 105 14 119/70 96 Mechanical Ventilator 100 12/01/16 16:00 65 12/01/16 16:00 102 12/01/16 16:00 99.0 103 14 90/50 93 Mechanical Ventilator 65 12/01/16 15:00 102 20 89/54 96 Mechanical Ventilator 65 12/01/16 14:32 108 14 65 12/01/16 14:00 107 20 85/58 90 Mechanical Ventilator 65 12/01/16 13:00 113 21 87/60 90 Mechanical Ventilator 65 12/01/16 12:43 103 19 65 12/01/16 12:00 65 12/01/16 12:00 110 12/01/16 12:00 97.8 93 20 70/38 98 Mechanical Ventilator 65 Status: awake Condition: critical HEENT: atraumatic Lungs: clear Heart: HR/BP stable, regular Abdomen: soft, non-tender, feeding tube Extremities: no C/C/E, edema Decubiti: location Critical Care - Subjective ROS Limited/Unobtainable: No Interval Events: PP borderline Condition: critical EKG Rhythm: Sinus Rhythm FI02: 60 Vent Support Breath Rate: 14 Vent Support Mode: AC Vent Tidal Volume: 600 Sputum Amount: Small PEEP: 5.0 PIP: 48 CXR: no change ET-Tube: 6.0 ET Position: 15 Labs: Laboratory Tests Test 12/01/16 15:00 12/02/16 05:00 Stool Occult Blood Pending White Blood Count 9.7 K/UL (4.8-10.8) Red Blood Count 2.81 M/UL (4.20-5.40) L Hemoglobin 8.5 G/DL (12.0-16.0) L Hematocrit 27.8 % (37.0-47.0) L Mean Corpuscular Volume 99 FL (80-99) Mean Corpuscular Hemoglobin 30.2 PG (27.0-31.0) Mean Corpuscular Hemoglobin Concent 30.5 G/DL (32.0-36.0) L Red Cell Distribution Width 19.1 % (11.6-14.8) H Platelet Count 141 K/UL (150-450) L Mean Platelet Volume 6.6 FL (6.5-10.1) Neutrophils (%) (Auto) 73.5 % (45.0-75.0) Lymphocytes (%) (Auto) 9.4 % (20.0-45.0) L Monocytes (%) (Auto) 13.6 % (1.0-10.0) H Eosinophils (%) (Auto) 2.2 % (0.0-3.0) Basophils (%) (Auto) 1.3 % (0.0-2.0) Prothrombin Time 16.7 SEC (9.30-11.50) H Prothromb Time International Ratio 1.6 (0.9-1.1) H Sodium Level 144 MMOL/L (136-145) Potassium Level 3.6 MMOL/L (3.5-5.1) Chloride Level 104 MMOL/L (98-107) Carbon Dioxide Level 31 MMOL/L (21-32) Anion Gap 9 mmol/L (5-15) Blood Urea Nitrogen 22 mg/dL (7-18) H Creatinine 3.1 MG/DL (0.55-1.30) H Estimat Glomerular Filtration Rate mL/min (>60) Glucose Level 71 MG/DL (74-106) L Calcium Level 8.3 MG/DL (8.5-10.1) L Total Bilirubin 1.3 MG/DL (0.2-1.0) H Direct Bilirubin 0.6 MG/DL (0.0-0.3) H Aspartate Amino Transf (AST/SGOT) 14 U/L (15-37) L Alanine Aminotransferase (ALT/SGPT) < 6 U/L (12-78) L Alkaline Phosphatase 67 U/L (46-116) Pro-B-Type Natriuretic Peptide 47958 pg/mL (0-125) H Total Protein 6.6 G/DL (6.4-8.2) Albumin 2.0 G/DL (3.4-5.0) L Globulin 4.6 g/dL Albumin/Globulin Ratio 0.4 (1.0-2.7) L ARASH MIRANDA Dec 02, 2016 11:27
--- NOTE | 2016-12-02 11:33 | General Progress Note ---
Assessment/Plan Status: stable Assessment/Plan Cellulitis BLE and R arm- in the setting of chronic leg edema- r/o DVT Anasarca/ bilateral leg lymphedema CKD- and acute renal failure - Acute respiratory failure s/p Trach Obese COPD , CHF, Diastolic MINA UTI Anemia GI Bleed, GI bleeding At Fib Pulm HTN h/o Low B12 plan: due PEG last HD t 12/01, next 12/03 K supplement as needed on EPOGEN 24 H urine collection in process: CrCl 6 Monitor renal parameters- optimize cardiac and pulm status avoid nephrotoxics- pulmonary support- transfuse as needed ? DC planning post PEG Subjective ROS Limited/Unobtainable: No Constitutional: Reports: malaise Allergies: Coded Allergies: AMOXICILLIN (Verified Allergy, Mild, RASH, 09/30/16) PENICILLINS (Unverified Allergy, Unknown, 09/30/16) Objective Last 24 Hour Vital Signs Date Time Temp Pulse Resp B/P (MAP) Pulse Ox O2 Delivery O2 Flow Rate FiO2 12/02/16 11:03 102 16 60 12/02/16 08:58 68 14 60 12/02/16 07:30 85 17 60 12/02/16 07:00 78 14 99/45 99 Mechanical Ventilator 60 12/02/16 06:00 85 19 99/48 98 Mechanical Ventilator 60 12/02/16 05:04 92 19 60 12/02/16 05:00 101 17 102/59 96 Mechanical Ventilator 60 12/02/16 04:00 72 12/02/16 04:00 60 12/02/16 04:00 98.4 72 16 86/51 98 Mechanical Ventilator 60 12/02/16 03:25 68 14 60 12/02/16 03:00 70 15 92/60 96 Mechanical Ventilator 60 12/02/16 02:00 74 21 88/58 99 Mechanical Ventilator 60 12/02/16 01:16 73 14 60 12/02/16 01:00 72 16 92/66 99 Mechanical Ventilator 60 12/02/16 00:00 98.8 77 16 88/53 99 Mechanical Ventilator 60 12/02/16 00:00 65 12/02/16 00:00 77 12/01/16 23:00 86 19 84/45 97 Mechanical Ventilator 65 12/01/16 22:38 99 14 60 12/01/16 22:00 100 20 93/53 98 Mechanical Ventilator 65 12/01/16 21:00 83 19 97/60 98 Mechanical Ventilator 65 12/01/16 20:50 94 14 65 12/01/16 20:00 65 12/01/16 20:00 98 12/01/16 20:00 98.6 98 16 83/47 98 Mechanical Ventilator 65 12/01/16 19:23 99 14 65 12/01/16 19:00 98.6 98 20 107/51 94 Mechanical Ventilator 65 12/01/16 18:00 100 20 92/55 96 Mechanical Ventilator 65 12/01/16 17:06 105 14 100 12/01/16 17:00 105 14 119/70 96 Mechanical Ventilator 100 12/01/16 16:00 65 12/01/16 16:00 102 12/01/16 16:00 99.0 103 14 90/50 93 Mechanical Ventilator 65 12/01/16 15:00 102 20 89/54 96 Mechanical Ventilator 65 12/01/16 14:32 108 14 65 12/01/16 14:00 107 20 85/58 90 Mechanical Ventilator 65 12/01/16 13:00 113 21 87/60 90 Mechanical Ventilator 65 12/01/16 12:43 103 19 65 12/01/16 12:00 65 12/01/16 12:00 110 12/01/16 12:00 97.8 93 20 70/38 98 Mechanical Ventilator 65 Laboratory Tests 12/01/16 15:00: Stool Occult Blood [Pending] 12/02/16 05:00: White Blood Count 9.7, Red Blood Count 2.81L, Hemoglobin 8.5L, Hematocrit 27.8L , Mean Corpuscular Volume 99, Mean Corpuscular Hemoglobin 30.2, Mean Corpuscular Hemoglobin Concent 30.5L, Red Cell Distribution Width 19.1H, Platelet Count 141L, Mean Platelet Volume 6.6, Neutrophils (%) (Auto) 73.5, Lymphocytes (%) (Auto) 9.4L, Monocytes (%) (Auto) 13.6H, Eosinophils (%) (Auto) 2.2, Basophils (%) (Auto) 1.3, Prothrombin Time 16.7H, Prothromb Time International Ratio 1.6H, Sodium Level 144, Potassium Level 3.6, Chloride Level 104, Carbon Dioxide Level 31, Anion Gap 9, Blood Urea Nitrogen 22H, Creatinine 3.1H, Estimat Glomerular Filtration Rate , Glucose Level 71L, Calcium Level 8.3L , Total Bilirubin 1.3H, Direct Bilirubin 0.6H, Aspartate Amino Transf (AST/SGOT ) 14L, Alanine Aminotransferase (ALT/SGPT) < 6L, Alkaline Phosphatase 67, Pro-B- Type Natriuretic Peptide 94814F, Total Protein 6.6, Albumin 2.0L, Globulin 4.6, Albumin/Globulin Ratio 0.4L Height (Feet): 5 Height (Inches): 4.00 Weight (Pounds): 358 General Appearance: no apparent distress Respiratory/Chest: decreased breath sounds Abdomen: distended Objective much less edematous COURTNEY LOPEZ Dec 02, 2016 11:33
[2016-12-02] MEDS: DiphenhydrAMINE 50mg/ml Inj IVP PRN (12:48)
--- NOTE | 2016-12-02 18:28 | General Progress Note ---
Assessment/Plan Assessment/Plan This is a 76-year-old, morbidly obese female, admitted with anasarca and cellulitis of the lower leg. The patient was admitted to the directr observation unit on the monitor with the following medical problems. now transfered to icu as of 11-14-16, co of pruritis 1. Anasarca. She appears to be markedly swollen. She will need diuresis. Place the patient on Lasix 20 mg intravenous for now q.12 hours. Cardiology and Pulmonary on the case. We will follow orders. Check laboratory studies daily. lasix drip was discontinued in am, HD started 2. Chronic hypercapnic respiratory failure. Continue with vent support per Pulmonary. will discuss with pulmonary regarding trach issues 3 anemia. s./p transfusion of PRBC Continue monitoring CBC daily. patient to start procrit per nephrology 4. Pulmonary hypertension. hold Eliquis 2.5 mg twice a day until trach is refitted 5. Chronic kidney disease. We will monitor BUN and creatinine. Gentle diuresis for now. Nephrology has been consulted. further workup per nephrology. avoid nephrotoxic agents HD to start soon 6. DVT prophylaxis. The patient is on Eliquis. The patient is Full 7. nutrition: patient didn't tolerate NGT placment, patient is now agreeable to PEG placement, all questions were answered including risks and benefits, patient agrees to proceed Code. 8. Alkalosis: on SIMV monitor labs 9. Generalized anxiety: ativna prn, counselled for 15min 10. constipation: prn enema, continue with colace and MiraLax had revesion of trach on 11-23-16 discussed with icu nurse benadryl 25 mg iv q 6 prn itching NPO still except ice chips continue HD per nephrology trach revision done today by Dr. Powell PEG to be placed tomorrow discussed with ICU nursing staff HD tomorrow Subjective Date patient seen: Dec 02, 2016 ROS Limited/Unobtainable: Yes Allergies: Coded Allergies: AMOXICILLIN (Verified Allergy, Mild, RASH, 09/30/16) PENICILLINS (Unverified Allergy, Unknown, 09/30/16) Subjective patient continues to get ICU care awaiting Dr. Powell to evaluate for trach exchange Objective Last 24 Hour Vital Signs Date Time Temp Pulse Resp B/P (MAP) Pulse Ox O2 Delivery O2 Flow Rate FiO2 12/02/16 18:00 75 15 96/54 99 Mechanical Ventilator 60 12/02/16 17:13 91 22 60 12/02/16 17:00 75 16 96/60 99 Mechanical Ventilator 60 12/02/16 16:00 98.2 96 17 95/62 99 Mechanical Ventilator 60 12/02/16 16:00 95 12/02/16 16:00 60 12/02/16 15:25 96 21 60 12/02/16 15:00 96 16 83/40 99 Mechanical Ventilator 60 12/02/16 14:00 96 15 83/40 99 Mechanical Ventilator 60 12/02/16 13:19 100 17 60 12/02/16 13:00 95 14 102/52 99 Mechanical Ventilator 60 12/02/16 12:00 60 12/02/16 12:00 95 12/02/16 12:00 98.3 92 16 93/51 95 Mechanical Ventilator 60 12/02/16 11:03 102 16 60 12/02/16 11:00 84 14 97/50 95 Mechanical Ventilator 60 12/02/16 10:00 72 16 90/54 99 Mechanical Ventilator 60 12/02/16 09:00 73 15 88/47 99 Mechanical Ventilator 60 12/02/16 08:58 68 14 60 12/02/16 08:00 60 12/02/16 08:00 98.0 79 16 92/49 98 Mechanical Ventilator 60 12/02/16 08:00 71 12/02/16 07:30 85 17 60 12/02/16 07:00 78 14 99/45 99 Mechanical Ventilator 60 12/02/16 06:00 85 19 99/48 98 Mechanical Ventilator 60 12/02/16 05:04 92 19 60 12/02/16 05:00 101 17 102/59 96 Mechanical Ventilator 60 12/02/16 04:00 72 12/02/16 04:00 60 12/02/16 04:00 98.4 72 16 86/51 98 Mechanical Ventilator 60 12/02/16 03:25 68 14 60 12/02/16 03:00 70 15 92/60 96 Mechanical Ventilator 60 12/02/16 02:00 74 21 88/58 99 Mechanical Ventilator 60 12/02/16 01:16 73 14 60 12/02/16 01:00 72 16 92/66 99 Mechanical Ventilator 60 12/02/16 00:00 98.8 77 16 88/53 99 Mechanical Ventilator 60 12/02/16 00:00 65 12/02/16 00:00 77 12/01/16 23:00 86 19 84/45 97 Mechanical Ventilator 65 12/01/16 22:38 99 14 60 12/01/16 22:00 100 20 93/53 98 Mechanical Ventilator 65 12/01/16 21:00 83 19 97/60 98 Mechanical Ventilator 65 12/01/16 20:50 94 14 65 12/01/16 20:00 65 12/01/16 20:00 98 12/01/16 20:00 98.6 98 16 83/47 98 Mechanical Ventilator 65 12/01/16 19:23 99 14 65 12/01/16 19:00 98.6 98 20 107/51 94 Mechanical Ventilator 65 Intake and Output 12/02/16 12/03/16 19:00 07:00 Output Total 0 ml Balance 0 ml Output Urine Total 0 ml # Bowel Movements 3 Laboratory Tests 12/02/16 05:00: White Blood Count 9.7, Red Blood Count 2.81L, Hemoglobin 8.5L, Hematocrit 27.8L , Mean Corpuscular Volume 99, Mean Corpuscular Hemoglobin 30.2, Mean Corpuscular Hemoglobin Concent 30.5L, Red Cell Distribution Width 19.1H, Platelet Count 141L, Mean Platelet Volume 6.6, Neutrophils (%) (Auto) 73.5, Lymphocytes (%) (Auto) 9.4L, Monocytes (%) (Auto) 13.6H, Eosinophils (%) (Auto) 2.2, Basophils (%) (Auto) 1.3, Prothrombin Time 16.7H, Prothromb Time International Ratio 1.6H, Sodium Level 144, Potassium Level 3.6, Chloride Level 104, Carbon Dioxide Level 31, Anion Gap 9, Blood Urea Nitrogen 22H, Creatinine 3.1H, Estimat Glomerular Filtration Rate , Glucose Level 71L, Calcium Level 8.3L , Total Bilirubin 1.3H, Direct Bilirubin 0.6H, Aspartate Amino Transf (AST/SGOT ) 14L, Alanine Aminotransferase (ALT/SGPT) < 6L, Alkaline Phosphatase 67, Pro-B- Type Natriuretic Peptide 22995Z, Total Protein 6.6, Albumin 2.0L, Globulin 4.6, Albumin/Globulin Ratio 0.4L Height (Feet): 5 Height (Inches): 4.00 Weight (Pounds): 358 General Appearance: morbidly obese EENT: PERRL/EOMI, pharynx normal Neck: non-tender, supple Cardiovascular: normal rate, regular rhythm, no gallop/murmur, no JVD Respiratory/Chest: decreased breath sounds Abdomen: distended Extremities: swelling Edema: 4+ Arm (L), 4+ Arm (R), 4+ Leg (L), 4+ Leg (R), 4+ Pedal (L), 4+ Pedal ( R), 4+ Generalized Edema: severe edema 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
--- NOTE | 2016-12-02 19:46 | Cardiology Progress Note ---
Assessment/Plan Assessment/Plan 1. Permanent atrial fibrillation. 2. Chronic respiratory failure, on a mechanical ventilator. 3. Cor pulmonale. 4. Pulmonary hypertension. 5. Acute renal failure, now on dialysis. 6. Anemia. 7. Significant edema. 8. Hypoalbuminemia. bp still on the low side has edema still on vent stool ob ordered no results yet stool now ob + no anticoagulation Subjective Cardiovascular: Denies: chest pain Respiratory: Denies: shortness of breath Gastrointestinal/Abdominal: Denies: abdominal pain Genitourinary: Denies: burning Subjective on the vent awak Objective Last 24 Hour Vital Signs Date Time Temp Pulse Resp B/P (MAP) Pulse Ox O2 Delivery O2 Flow Rate FiO2 12/02/16 19:21 92 14 50 12/02/16 18:00 75 15 96/54 99 Mechanical Ventilator 60 12/02/16 17:13 91 22 60 12/02/16 17:00 75 16 96/60 99 Mechanical Ventilator 60 12/02/16 16:00 98.2 96 17 95/62 99 Mechanical Ventilator 60 12/02/16 16:00 95 12/02/16 16:00 60 12/02/16 15:25 96 21 60 12/02/16 15:00 96 16 83/40 99 Mechanical Ventilator 60 12/02/16 14:00 96 15 83/40 99 Mechanical Ventilator 60 12/02/16 13:19 100 17 60 12/02/16 13:00 95 14 102/52 99 Mechanical Ventilator 60 12/02/16 12:00 60 12/02/16 12:00 95 12/02/16 12:00 98.3 92 16 93/51 95 Mechanical Ventilator 60 12/02/16 11:03 102 16 60 12/02/16 11:00 84 14 97/50 95 Mechanical Ventilator 60 12/02/16 10:00 72 16 90/54 99 Mechanical Ventilator 60 12/02/16 09:00 73 15 88/47 99 Mechanical Ventilator 60 12/02/16 08:58 68 14 60 12/02/16 08:00 60 12/02/16 08:00 98.0 79 16 92/49 98 Mechanical Ventilator 60 12/02/16 08:00 71 12/02/16 07:30 85 17 60 12/02/16 07:00 78 14 99/45 99 Mechanical Ventilator 60 12/02/16 06:00 85 19 99/48 98 Mechanical Ventilator 60 12/02/16 05:04 92 19 60 12/02/16 05:00 101 17 102/59 96 Mechanical Ventilator 60 12/02/16 04:00 72 12/02/16 04:00 60 12/02/16 04:00 98.4 72 16 86/51 98 Mechanical Ventilator 60 12/02/16 03:25 68 14 60 12/02/16 03:00 70 15 92/60 96 Mechanical Ventilator 60 12/02/16 02:00 74 21 88/58 99 Mechanical Ventilator 60 12/02/16 01:16 73 14 60 12/02/16 01:00 72 16 92/66 99 Mechanical Ventilator 60 12/02/16 00:00 98.8 77 16 88/53 99 Mechanical Ventilator 60 12/02/16 00:00 65 12/02/16 00:00 77 12/01/16 23:00 86 19 84/45 97 Mechanical Ventilator 65 12/01/16 22:38 99 14 60 12/01/16 22:00 100 20 93/53 98 Mechanical Ventilator 65 12/01/16 21:00 83 19 97/60 98 Mechanical Ventilator 65 12/01/16 20:50 94 14 65 12/01/16 20:00 65 12/01/16 20:00 98 12/01/16 20:00 98.6 98 16 83/47 98 Mechanical Ventilator 65 General Appearance: alert Cardiovascular: tachycardia, irregularly irregular Respiratory/Chest: lungs clear Abdomen: normal bowel sounds, non tender, soft Extremities: severe edema Intake and Output 12/02/16 12/03/16 19:00 07:00 Output Total 0 ml Balance 0 ml Output Urine Total 0 ml # Bowel Movements 3 Laboratory Tests Test 12/02/16 05:00 White Blood Count 9.7 K/UL (4.8-10.8) Red Blood Count 2.81 M/UL (4.20-5.40) L Hemoglobin 8.5 G/DL (12.0-16.0) L Hematocrit 27.8 % (37.0-47.0) L Mean Corpuscular Volume 99 FL (80-99) Mean Corpuscular Hemoglobin 30.2 PG (27.0-31.0) Mean Corpuscular Hemoglobin Concent 30.5 G/DL (32.0-36.0) L Red Cell Distribution Width 19.1 % (11.6-14.8) H Platelet Count 141 K/UL (150-450) L Mean Platelet Volume 6.6 FL (6.5-10.1) Neutrophils (%) (Auto) 73.5 % (45.0-75.0) Lymphocytes (%) (Auto) 9.4 % (20.0-45.0) L Monocytes (%) (Auto) 13.6 % (1.0-10.0) H Eosinophils (%) (Auto) 2.2 % (0.0-3.0) Basophils (%) (Auto) 1.3 % (0.0-2.0) Prothrombin Time 16.7 SEC (9.30-11.50) H Prothromb Time International Ratio 1.6 (0.9-1.1) H Sodium Level 144 MMOL/L (136-145) Potassium Level 3.6 MMOL/L (3.5-5.1) Chloride Level 104 MMOL/L (98-107) Carbon Dioxide Level 31 MMOL/L (21-32) Anion Gap 9 mmol/L (5-15) Blood Urea Nitrogen 22 mg/dL (7-18) H Creatinine 3.1 MG/DL (0.55-1.30) H Estimat Glomerular Filtration Rate mL/min (>60) Glucose Level 71 MG/DL (74-106) L Calcium Level 8.3 MG/DL (8.5-10.1) L Total Bilirubin 1.3 MG/DL (0.2-1.0) H Direct Bilirubin 0.6 MG/DL (0.0-0.3) H Aspartate Amino Transf (AST/SGOT) 14 U/L (15-37) L Alanine Aminotransferase (ALT/SGPT) < 6 U/L (12-78) L Alkaline Phosphatase 67 U/L (46-116) Pro-B-Type Natriuretic Peptide 59962 pg/mL (0-125) H Total Protein 6.6 G/DL (6.4-8.2) Albumin 2.0 G/DL (3.4-5.0) L Globulin 4.6 g/dL Albumin/Globulin Ratio 0.4 (1.0-2.7) L BRIANA TELLES Dec 02, 2016 19:46
[2016-12-02] MEDS: Dyna-Hex 2% Top Sol 2oz TOPIC SCH (20:01)
--- NOTE | 2016-12-02 20:21 | General Progress Note ---
Assessment/Plan Assessment/Plan ASSESSMENT/RECS: # Coagulopathy 2/2 sepsis #. Anemia secondary to chronic disease. Continue to closely monitor. Work up reviewed --> s/p transfusion. watch counts, transfuse if hgb is below 8 # Positive occult blood. r/o gi bleed. gi following #. Anemia of kidney disease. Nephrology service following #. PEG tube placement, has been cancelled for now #. Chronic ventilator dependent #. Permanent atrial fibrillation. #. Cellulitis and chronic lymphedema of the bilateral lower extremities. #. Congestive heart failure. Subjective Constitutional: Reports: weakness Allergies: Coded Allergies: AMOXICILLIN (Verified Allergy, Mild, RASH, 09/30/16) PENICILLINS (Unverified Allergy, Unknown, 09/30/16) All Systems: reviewed and negative except above Subjective HH better post transfusion Objective Last 24 Hour Vital Signs Date Time Temp Pulse Resp B/P (MAP) Pulse Ox O2 Delivery O2 Flow Rate FiO2 12/02/16 19:21 92 14 50 12/02/16 18:00 75 15 96/54 99 Mechanical Ventilator 60 12/02/16 17:13 91 22 60 12/02/16 17:00 75 16 96/60 99 Mechanical Ventilator 60 12/02/16 16:00 98.2 96 17 95/62 99 Mechanical Ventilator 60 12/02/16 16:00 95 12/02/16 16:00 60 12/02/16 15:25 96 21 60 12/02/16 15:00 96 16 83/40 99 Mechanical Ventilator 60 12/02/16 14:00 96 15 83/40 99 Mechanical Ventilator 60 12/02/16 13:19 100 17 60 12/02/16 13:00 95 14 102/52 99 Mechanical Ventilator 60 12/02/16 12:00 60 12/02/16 12:00 95 12/02/16 12:00 98.3 92 16 93/51 95 Mechanical Ventilator 60 12/02/16 11:03 102 16 60 12/02/16 11:00 84 14 97/50 95 Mechanical Ventilator 60 12/02/16 10:00 72 16 90/54 99 Mechanical Ventilator 60 12/02/16 09:00 73 15 88/47 99 Mechanical Ventilator 60 12/02/16 08:58 68 14 60 12/02/16 08:00 60 12/02/16 08:00 98.0 79 16 92/49 98 Mechanical Ventilator 60 12/02/16 08:00 71 12/02/16 07:30 85 17 60 12/02/16 07:00 78 14 99/45 99 Mechanical Ventilator 60 12/02/16 06:00 85 19 99/48 98 Mechanical Ventilator 60 12/02/16 05:04 92 19 60 12/02/16 05:00 101 17 102/59 96 Mechanical Ventilator 60 12/02/16 04:00 72 12/02/16 04:00 60 12/02/16 04:00 98.4 72 16 86/51 98 Mechanical Ventilator 60 12/02/16 03:25 68 14 60 12/02/16 03:00 70 15 92/60 96 Mechanical Ventilator 60 12/02/16 02:00 74 21 88/58 99 Mechanical Ventilator 60 12/02/16 01:16 73 14 60 12/02/16 01:00 72 16 92/66 99 Mechanical Ventilator 60 12/02/16 00:00 98.8 77 16 88/53 99 Mechanical Ventilator 60 12/02/16 00:00 65 12/02/16 00:00 77 12/01/16 23:00 86 19 84/45 97 Mechanical Ventilator 65 12/01/16 22:38 99 14 60 12/01/16 22:00 100 20 93/53 98 Mechanical Ventilator 65 12/01/16 21:00 83 19 97/60 98 Mechanical Ventilator 65 12/01/16 20:50 94 14 65 Intake and Output 12/02/16 12/03/16 19:00 07:00 Output Total 0 ml Balance 0 ml Output Urine Total 0 ml # Bowel Movements 3 Laboratory Tests 12/02/16 05:00: White Blood Count 9.7, Red Blood Count 2.81L, Hemoglobin 8.5L, Hematocrit 27.8L , Mean Corpuscular Volume 99, Mean Corpuscular Hemoglobin 30.2, Mean Corpuscular Hemoglobin Concent 30.5L, Red Cell Distribution Width 19.1H, Platelet Count 141L, Mean Platelet Volume 6.6, Neutrophils (%) (Auto) 73.5, Lymphocytes (%) (Auto) 9.4L, Monocytes (%) (Auto) 13.6H, Eosinophils (%) (Auto) 2.2, Basophils (%) (Auto) 1.3, Prothrombin Time 16.7H, Prothromb Time International Ratio 1.6H, Sodium Level 144, Potassium Level 3.6, Chloride Level 104, Carbon Dioxide Level 31, Anion Gap 9, Blood Urea Nitrogen 22H, Creatinine 3.1H, Estimat Glomerular Filtration Rate , Glucose Level 71L, Calcium Level 8.3L , Total Bilirubin 1.3H, Direct Bilirubin 0.6H, Aspartate Amino Transf (AST/SGOT ) 14L, Alanine Aminotransferase (ALT/SGPT) < 6L, Alkaline Phosphatase 67, Pro-B- Type Natriuretic Peptide 23476E, Total Protein 6.6, Albumin 2.0L, Globulin 4.6, Albumin/Globulin Ratio 0.4L Height (Feet): 5 Height (Inches): 4.00 Weight (Pounds): 358 General Appearance: no apparent distress EENT: normal ENT inspection Neck: normal inspection Abdomen: no organomegaly, no mass Extremities: non-tender Skin: warm/dry Serafin Haines Dec 02, 2016 20:21
[2016-12-03] VITALS (16 sets, daily range): BP systolic 76–109; BP diastolic 38–58
[2016-12-03 05:06] LABS: EOSINOPHILS % (AUTO) 2.8 % (0.0-3.0); LYMPHOCYTES % (AUTO) 14.7 % (20.0-45.0); MEAN CORPUSCULAR HEMOGLOBIN 29.5 PG (27.0-31.0); MEAN CORPUSCULAR VOLUME 98 FL (80-99); MEAN PLATELET VOLUME 6.6 FL (6.5-10.1); MONOCYTES % (AUTO) 11.5 % (1.0-10.0); PLATELET COUNT 172 K/UL (150-450); RED CELL DISTRIBUTION WIDTH 18.5 % (11.6-14.8); WHITE BLOOD COUNT 9.9 K/UL (4.8-10.8)
[2016-12-03] MEDS: Midodrine 10mg tab ORAL SCH ×3 (05:31→21:22)
[2016-12-03 05:36] LABS: ALANINE AMINOTRANSFERASE < 6 U/L (12-78); ALBUMIN/GLOBULIN RATIO 0.4 (1.0-2.7); ANION GAP 9 mmol/L (5-15); ASPARTATE AMINO TRANSFERASE 14 U/L (15-37); CALCIUM 8.4 MG/DL (8.5-10.1); CARBON DIOXIDE 33 MMOL/L (21-32); CHLORIDE 103 MMOL/L (98-107); CREATININE 3.5 MG/DL (0.55-1.30); POTASSIUM 3.6 MMOL/L (3.5-5.1); SODIUM 144 MMOL/L (136-145); TOTAL PROTEIN 6.8 G/DL (6.4-8.2)
[2016-12-03 05:39] LABS: BILIRUBIN,DIRECT 0.6 MG/DL (0.0-0.3)
[2016-12-03] MEDS: Miralax 17gm pkt ORAL SCH (07:43)
[2016-12-03] MEDS: Docusate 100mg cap ORAL SCH (07:43)
[2016-12-03] MEDS: Revatio 20mg tab ORAL SCH ×3 (07:46→17:45)
[2016-12-03] MEDS: Pantoprazole Inj IVP SCH (09:03)
--- NOTE | 2016-12-03 09:15 | Infectious Diseases Prog Note ---
Assessment/Plan Assessment/Plan Abx: IV Vancomycin 11/11-11/12; 11/17-11/26 IV Cefepime 11/11-11/12 IV Ancef 11/12-11/28 Flagyl x1 11/11 Assesment: Cellulitis BLE and R arm- in the setting of chronic leg edema/venous stasis, s/ p Rx- Limited Venous duplex BLE (non diagnostic), no DVT R arm; much improved; Now residual venous stasis changes. -Bcx Neg Anasarca/ bilateral leg lymphedema -CXR 11/19: Interstitial edema/CHF unchanged Afebrile, no leukocytosis REnal insufficiency VRE colonzied COPD Diastolic CHF chronic resp failure, vent/trach dependent, Gtbue, pAfib, pleural effusion, MINA , CKD, GERD, morbid obesity, [facility] resident Plan: -Continue to monitor off abx -s/p 18d IV Ancef 11/28 -s/p 10 d IV Vancomycin 11/26 -extremity elevation -edema management -Monitor CBC/BMP, temperatures - vent support, trach care, aspiration precautions Thank you for this consultation. Will continue to follow along with you. 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 RN. Subjective Allergies: Coded Allergies: AMOXICILLIN (Verified Allergy, Mild, RASH, 09/30/16) PENICILLINS (Unverified Allergy, Unknown, 09/30/16) Subjective afebrile no leukocytosis remains in ICU Objective Vital Signs Last 24 Hour Vital Signs Date Time Temp Pulse Resp B/P (MAP) Pulse Ox O2 Delivery O2 Flow Rate FiO2 12/03/16 08:29 76 12/03/16 08:00 60 12/03/16 08:00 97.8 77 1 95/57 98 Mechanical Ventilator 60 12/03/16 07:27 69 14 50 12/03/16 07:00 69 14 88/47 98 Mechanical Ventilator 60 12/03/16 06:00 78 14 91/43 98 Mechanical Ventilator 60 12/03/16 05:26 91 14 50 12/03/16 05:00 79 21 103/58 98 Mechanical Ventilator 60 12/03/16 04:00 98.2 76 15 77/42 100 Mechanical Ventilator 60 12/03/16 04:00 76 12/03/16 04:00 60 12/03/16 03:12 88 15 50 12/03/16 03:00 85 19 76/38 100 Mechanical Ventilator 60 12/03/16 02:00 75 16 97/49 100 Mechanical Ventilator 60 12/03/16 01:20 75 14 50 12/03/16 01:00 77 15 97/49 100 Mechanical Ventilator 60 12/03/16 00:00 60 12/03/16 00:00 76 12/03/16 00:00 98.6 76 17 91/49 99 Mechanical Ventilator 60 12/02/16 23:11 75 14 50 12/02/16 23:00 78 15 88/50 98 Mechanical Ventilator 60 12/02/16 22:00 81 15 91/49 98 Mechanical Ventilator 60 12/02/16 21:00 91 17 89/45 98 Mechanical Ventilator 60 12/02/16 20:33 109 15 50 12/02/16 20:00 98.4 117 21 115/44 99 Mechanical Ventilator 60 12/02/16 20:00 60 12/02/16 20:00 117 12/02/16 19:21 92 14 50 12/02/16 19:00 96 16 90/44 97 Mechanical Ventilator 60 12/02/16 18:00 75 15 96/54 99 Mechanical Ventilator 60 12/02/16 17:13 91 22 60 12/02/16 17:00 75 16 96/60 99 Mechanical Ventilator 60 12/02/16 16:00 98.2 96 17 95/62 99 Mechanical Ventilator 60 12/02/16 16:00 95 12/02/16 16:00 60 12/02/16 15:25 96 21 60 12/02/16 15:00 96 16 83/40 99 Mechanical Ventilator 60 12/02/16 14:00 96 15 83/40 99 Mechanical Ventilator 60 12/02/16 13:19 100 17 60 12/02/16 13:00 95 14 102/52 99 Mechanical Ventilator 60 12/02/16 12:00 60 12/02/16 12:00 95 12/02/16 12:00 98.3 92 16 93/51 95 Mechanical Ventilator 60 12/02/16 11:03 102 16 60 12/02/16 11:00 84 14 97/50 95 Mechanical Ventilator 60 12/02/16 10:00 72 16 90/54 99 Mechanical Ventilator 60 Height (Feet): 5 Height (Inches): 4.00 Weight (Pounds): 358 Objective General Appearance: WD/WN HEENT: trach in palce, Respiratory/Chest: chest wall non-tender, lungs clear Cardiovascular/Chest: normal peripheral pulses, normal rate Abdomen: normal bowel sounds, non tender Ext: anasarca; R > L LE swelling, both legs with blanching erythema anteriorly from distal leg up to below knee, +warmth, non TTP, no drainage; R arm swelling, erythematous,. background changes of chronic lymphedema on b/l legs; erythema and swelling improved reviewed Laboratory Tests Test 12/03/16 04:58 White Blood Count 9.9 K/UL (4.8-10.8) Red Blood Count 2.90 M/UL (4.20-5.40) L Hemoglobin 8.5 G/DL (12.0-16.0) L Hematocrit 28.5 % (37.0-47.0) L Mean Corpuscular Volume 98 FL (80-99) Mean Corpuscular Hemoglobin 29.5 PG (27.0-31.0) Mean Corpuscular Hemoglobin Concent 30.0 G/DL (32.0-36.0) L Red Cell Distribution Width 18.5 % (11.6-14.8) H Platelet Count 172 K/UL (150-450) Mean Platelet Volume 6.6 FL (6.5-10.1) Neutrophils (%) (Auto) 70.0 % (45.0-75.0) Lymphocytes (%) (Auto) 14.7 % (20.0-45.0) L Monocytes (%) (Auto) 11.5 % (1.0-10.0) H Eosinophils (%) (Auto) 2.8 % (0.0-3.0) Basophils (%) (Auto) 1.0 % (0.0-2.0) Sodium Level 144 MMOL/L (136-145) Potassium Level 3.6 MMOL/L (3.5-5.1) Chloride Level 103 MMOL/L (98-107) Carbon Dioxide Level 33 MMOL/L (21-32) H Anion Gap 9 mmol/L (5-15) Blood Urea Nitrogen 26 mg/dL (7-18) H Creatinine 3.5 MG/DL (0.55-1.30) H Estimat Glomerular Filtration Rate mL/min (>60) Glucose Level 73 MG/DL (74-106) L Calcium Level 8.4 MG/DL (8.5-10.1) L Total Bilirubin 1.2 MG/DL (0.2-1.0) H Direct Bilirubin 0.6 MG/DL (0.0-0.3) H Aspartate Amino Transf (AST/SGOT) 14 U/L (15-37) L Alanine Aminotransferase (ALT/SGPT) < 6 U/L (12-78) L Alkaline Phosphatase 78 U/L (46-116) Pro-B-Type Natriuretic Peptide 20754 pg/mL (0-125) H Total Protein 6.8 G/DL (6.4-8.2) Albumin 2.0 G/DL (3.4-5.0) L Globulin 4.8 g/dL Albumin/Globulin Ratio 0.4 (1.0-2.7) L Current Medications Medications (Trade) Dose Ordered Sig/Kalyn Route PRN Reason Start Time Stop Time Status Last Admin Dose Admin Acetaminophen (Tylenol) 650 mg Q4H PRN ORAL Mild Pain/Temp > 100.5 11/14/16 08:00 12/12/16 07:59 12/01/16 13:18 Allopurinol (Allopurinol) 200 mg DAILY ORAL 12/03/16 09:00 01/02/17 08:59 Chlorhexidine Gluconate (Marni-Hex 2%) 1 applic Q24H TOPIC 11/27/16 20:00 12/27/16 19:59 12/02/16 20:01 Diphenhydramine HCl (Benadryl) 25 mg Q6H PRN IVP Itching 11/19/16 20:15 12/19/16 20:14 12/02/16 12:48 Docusate Sodium (Colace) 100 mg TWICE A DAY ORAL 11/14/16 09:00 12/12/16 08:59 12/02/16 09:41 Epoetin Santos (Procrit (for non ESRD use)) 10,000 units TUE-TUE-TUE SUBQ 11/17/16 21:00 12/17/16 20:59 12/01/16 21:25 Folic Acid (Folate) 1 mg DAILY ORAL 11/14/16 09:00 12/12/16 08:59 12/02/16 09:41 Gabapentin (Neurontin) 600 mg BID ORAL 11/14/16 09:00 12/14/16 08:59 12/02/16 09:41 Lorazepam (Ativan 2mg/ml 1ml) 2 mg Q2H PRN IV For Anxiety 11/29/16 13:15 12/06/16 13:14 11/29/16 13:20 Midodrine (Pro-Amatine) 10 mg EVERY 8 HOURS ORAL 12/01/16 22:00 12/21/16 12:59 12/03/16 05:31 Pantoprazole (Protonix) 40 mg DAILY IVP 11/14/16 09:00 12/12/16 08:59 12/03/16 09:03 Polyethylene Glycol (Miralax) 17 gm DAILY ORAL 11/14/16 09:00 12/12/16 08:59 12/02/16 09:41 Pravastatin Sodium (Pravachol) 20 mg BEDTIME ORAL 11/14/16 21:00 12/12/16 20:59 12/02/16 21:44 Sildenafil Citrate (Revatio) 20 mg THREE TIMES A DAY ORAL 11/14/16 09:00 12/12/16 08:59 12/02/16 09:45 Danielle Guo M.D. Dec 03, 2016 09:15
--- NOTE | 2016-12-03 09:21 | Diagnostic Imaging Report ---
Indication: DYSPNEA Technique: One view of the chest Comparison: 12/02/2016 Findings: Patient is markedly rotated to the left. Tracheostomy again demonstrated. The heart is enlarged. Bilateral interstitial and alveolar edema persists, probably unchanged allowing for technical differences. Impression: Unchanged, over one day, findings as above.
--- NOTE | 2016-12-03 09:32 | General Progress Note ---
Assessment/Plan Problem List: (1) Positive occult stool blood test ICD Codes: R19.5 - Other fecal abnormalities SNOMED: 37149855, 997254301 (2) Morbid obesity ICD Codes: E66.01 - Morbid (severe) obesity due to excess calories SNOMED: 740436995, 16178220619723 (3) Atrial fibrillation ICD Codes: I48.91 - Unspecified atrial fibrillation SNOMED: 27529225 (4) CHF (congestive heart failure) ICD Codes: I50.9 - Heart failure, unspecified SNOMED: 17911708 (5) PEG (percutaneous endoscopic gastrostomy) adjustment/replacement/removal ICD Codes: Z43.1 - Encounter for attention to gastrostomy SNOMED: 725949625, 672954944 Assessment/Plan plan for PEG today Subjective ROS Limited/Unobtainable: No Allergies: Coded Allergies: AMOXICILLIN (Verified Allergy, Mild, RASH, 09/30/16) PENICILLINS (Unverified Allergy, Unknown, 09/30/16) Objective Last 24 Hour Vital Signs Date Time Temp Pulse Resp B/P (MAP) Pulse Ox O2 Delivery O2 Flow Rate FiO2 12/03/16 09:15 76 14 50 12/03/16 09:00 74 16 102/50 98 Mechanical Ventilator 60 12/03/16 08:29 76 12/03/16 08:00 60 12/03/16 08:00 97.8 77 21 95/57 98 Mechanical Ventilator 60 12/03/16 07:27 69 14 50 12/03/16 07:00 69 14 88/47 98 Mechanical Ventilator 60 12/03/16 06:00 78 14 91/43 98 Mechanical Ventilator 60 12/03/16 05:26 91 14 50 12/03/16 05:00 79 21 103/58 98 Mechanical Ventilator 60 12/03/16 04:00 98.2 76 15 77/42 100 Mechanical Ventilator 60 12/03/16 04:00 76 12/03/16 04:00 60 12/03/16 03:12 88 15 50 12/03/16 03:00 85 19 76/38 100 Mechanical Ventilator 60 12/03/16 02:00 75 16 97/49 100 Mechanical Ventilator 60 12/03/16 01:20 75 14 50 12/03/16 01:00 77 15 97/49 100 Mechanical Ventilator 60 12/03/16 00:00 60 12/03/16 00:00 76 12/03/16 00:00 98.6 76 17 91/49 99 Mechanical Ventilator 60 12/02/16 23:11 75 14 50 12/02/16 23:00 78 15 88/50 98 Mechanical Ventilator 60 12/02/16 22:00 81 15 91/49 98 Mechanical Ventilator 60 12/02/16 21:00 91 17 89/45 98 Mechanical Ventilator 60 12/02/16 20:33 109 15 50 12/02/16 20:00 98.4 117 21 115/44 99 Mechanical Ventilator 60 12/02/16 20:00 60 12/02/16 20:00 117 12/02/16 19:21 92 14 50 12/02/16 19:00 96 16 90/44 97 Mechanical Ventilator 60 12/02/16 18:00 75 15 96/54 99 Mechanical Ventilator 60 12/02/16 17:13 91 22 60 12/02/16 17:00 75 16 96/60 99 Mechanical Ventilator 60 12/02/16 16:00 98.2 96 17 95/62 99 Mechanical Ventilator 60 12/02/16 16:00 95 12/02/16 16:00 60 12/02/16 15:25 96 21 60 12/02/16 15:00 96 16 83/40 99 Mechanical Ventilator 60 12/02/16 14:00 96 15 83/40 99 Mechanical Ventilator 60 12/02/16 13:19 100 17 60 12/02/16 13:00 95 14 102/52 99 Mechanical Ventilator 60 12/02/16 12:00 60 12/02/16 12:00 95 12/02/16 12:00 98.3 92 16 93/51 95 Mechanical Ventilator 60 12/02/16 11:03 102 16 60 12/02/16 11:00 84 14 97/50 95 Mechanical Ventilator 60 12/02/16 10:00 72 16 90/54 99 Mechanical Ventilator 60 Intake and Output 12/03/16 12/04/16 19:00 07:00 Output Total 20 ml Balance -20 ml Output Urine Total 20 ml # Bowel Movements 2 Laboratory Tests 12/03/16 04:58: White Blood Count 9.9, Red Blood Count 2.90L, Hemoglobin 8.5L, Hematocrit 28.5L , Mean Corpuscular Volume 98, Mean Corpuscular Hemoglobin 29.5, Mean Corpuscular Hemoglobin Concent 30.0L, Red Cell Distribution Width 18.5H, Platelet Count 172, Mean Platelet Volume 6.6, Neutrophils (%) (Auto) 70.0, Lymphocytes (%) (Auto) 14.7L, Monocytes (%) (Auto) 11.5H, Eosinophils (%) (Auto ) 2.8, Basophils (%) (Auto) 1.0, Sodium Level 144, Potassium Level 3.6, Chloride Level 103, Carbon Dioxide Level 33H, Anion Gap 9, Blood Urea Nitrogen 26H, Creatinine 3.5H, Estimat Glomerular Filtration Rate , Glucose Level 73L, Calcium Level 8.4L, Total Bilirubin 1.2H, Direct Bilirubin 0.6H, Aspartate Amino Transf (AST/SGOT) 14L, Alanine Aminotransferase (ALT/SGPT) < 6L, Alkaline Phosphatase 78, Pro-B-Type Natriuretic Peptide 52199Y, Total Protein 6.8, Albumin 2.0L, Globulin 4.8, Albumin/Globulin Ratio 0.4L Height (Feet): 5 Height (Inches): 3.00 Weight (Pounds): 165 General Appearance: no apparent distress EENT: normal ENT inspection Neck: supple Cardiovascular: normal rate Respiratory/Chest: decreased breath sounds Abdomen: normal bowel sounds, soft Extremities: non-tender RUDDY RODRIGUEZ Dec 03, 2016 09:32
--- NOTE | 2016-12-03 09:33 | Pre-Procedure Note/Attestation ---
Pre-Procedure Note/Attestation Complete Prior to Procedure Planned Procedure: not applicable Procedure Narrative: esophagogastroduodenoscopy /peg Indications for Procedure Pre-Operative Diagnosis: dysphagia Attestation I attest that I discussed the nature of the procedure; its benefits; risks and complications; and alternatives (and the risks and benefits of such alternatives ), prior to the procedure, with the patient (or the patient's legal outside sales representative insurance). I attest that, if there was a reasonable possibility of needing a blood transfusion, the patient (or the patient's legal outside sales representative insurance) was given the [facility] standardized written summary, pursuant to the Dayne Anu Blood Safety Act ([place] Health and Safety Code # 1645, as amended). I attest that I re-evaluated the patient just prior to the surgery and that there has been no change in the patient's H&P, except as documented below: RUDDY RODRIGUEZ Dec 03, 2016 09:33
[2016-12-03] MEDS ORDERED: Lidocaine 1% MPF 10mg/ml 5ml ONE (09:50)
[2016-12-03] MEDS ORDERED: Propofol 200mg/20ml IV ONE (09:50)
[2016-12-03] MEDS ORDERED: Vancomycin 1 GM in D5W 275 ML IVPB ONE (10:00)
[2016-12-03 10:08] LABS: HEPATITIS C VIRUS AB/CEDARS 0.16 S/CO (<0.80)
--- NOTE | 2016-12-03 10:10 | Endoscopy Procedure Note ---
Endoscopy Procedure Note Indication for Procedure: dysphagia Procedures Performed: EGD, PEG Operative Findings/Diagnosis: same Specimen: none Pt Tolerated Procedure Well: Yes Estimated Blood Loss: none Anesthesiologist: doris Anesthesia: MAC Implant(s) used?: No 50 yrs or older w/o bx or poly: Not Applicable 10yrs. F/U not recommended: Not Applicable RUDDY RODRIGUEZ Dec 03, 2016 10:10
--- NOTE | 2016-12-03 10:46 | General Progress Note ---
Assessment/Plan Status: stable - on HD Assessment/Plan Cellulitis BLE and R arm- in the setting of chronic leg edema- r/o DVT Anasarca/ bilateral leg lymphedema CKD- and acute renal failure - Acute respiratory failure s/p Trach Obese COPD , CHF, Diastolic MINA UTI Anemia GI Bleed, GI bleeding At Fib Pulm HTN h/o Low B12 plan: due PEG: (Main issue) last HD t 12/01, next 12/03 K supplement as needed on EPOGEN 24 H urine collection in process: CrCl 6 Monitor renal parameters- optimize cardiac and pulm status avoid nephrotoxics- pulmonary support- transfuse as needed ? DC planning post PEG Subjective ROS Limited/Unobtainable: No Allergies: Coded Allergies: AMOXICILLIN (Verified Allergy, Mild, RASH, 09/30/16) PENICILLINS (Unverified Allergy, Unknown, 09/30/16) Objective Last 24 Hour Vital Signs Date Time Temp Pulse Resp B/P (MAP) Pulse Ox O2 Delivery O2 Flow Rate FiO2 12/03/16 10:00 91 17 96/56 98 Mechanical Ventilator 60 12/03/16 09:15 76 14 50 12/03/16 09:00 74 16 102/50 98 Mechanical Ventilator 60 12/03/16 08:29 76 12/03/16 08:00 60 12/03/16 08:00 97.8 77 21 95/57 98 Mechanical Ventilator 60 12/03/16 07:27 69 14 50 12/03/16 07:00 69 14 88/47 98 Mechanical Ventilator 60 12/03/16 06:00 78 14 91/43 98 Mechanical Ventilator 60 12/03/16 05:26 91 14 50 12/03/16 05:00 79 21 103/58 98 Mechanical Ventilator 60 12/03/16 04:00 98.2 76 15 77/42 100 Mechanical Ventilator 60 12/03/16 04:00 76 12/03/16 04:00 60 12/03/16 03:12 88 15 50 12/03/16 03:00 85 19 76/38 100 Mechanical Ventilator 60 12/03/16 02:00 75 16 97/49 100 Mechanical Ventilator 60 12/03/16 01:20 75 14 50 12/03/16 01:00 77 15 97/49 100 Mechanical Ventilator 60 12/03/16 00:00 60 12/03/16 00:00 76 12/03/16 00:00 98.6 76 17 91/49 99 Mechanical Ventilator 60 12/02/16 23:11 75 14 50 12/02/16 23:00 78 15 88/50 98 Mechanical Ventilator 60 12/02/16 22:00 81 15 91/49 98 Mechanical Ventilator 60 12/02/16 21:00 91 17 89/45 98 Mechanical Ventilator 60 12/02/16 20:33 109 15 50 12/02/16 20:00 98.4 117 21 115/44 99 Mechanical Ventilator 60 12/02/16 20:00 60 12/02/16 20:00 117 12/02/16 19:21 92 14 50 12/02/16 19:00 96 16 90/44 97 Mechanical Ventilator 60 12/02/16 18:00 75 15 96/54 99 Mechanical Ventilator 60 12/02/16 17:13 91 22 60 12/02/16 17:00 75 16 96/60 99 Mechanical Ventilator 60 12/02/16 16:00 98.2 96 17 95/62 99 Mechanical Ventilator 60 12/02/16 16:00 95 12/02/16 16:00 60 12/02/16 15:25 96 21 60 12/02/16 15:00 96 16 83/40 99 Mechanical Ventilator 60 12/02/16 14:00 96 15 83/40 99 Mechanical Ventilator 60 12/02/16 13:19 100 17 60 12/02/16 13:00 95 14 102/52 99 Mechanical Ventilator 60 12/02/16 12:00 60 12/02/16 12:00 95 12/02/16 12:00 98.3 92 16 93/51 95 Mechanical Ventilator 60 12/02/16 11:03 102 16 60 12/02/16 11:00 84 14 97/50 95 Mechanical Ventilator 60 Intake and Output 12/03/16 12/04/16 19:00 07:00 Intake Total 183 ml Output Total 20 ml Balance 163 ml IV Total 183 ml Output Urine Total 20 ml # Bowel Movements 2 Laboratory Tests 12/03/16 04:58: White Blood Count 9.9, Red Blood Count 2.90L, Hemoglobin 8.5L, Hematocrit 28.5L , Mean Corpuscular Volume 98, Mean Corpuscular Hemoglobin 29.5, Mean Corpuscular Hemoglobin Concent 30.0L, Red Cell Distribution Width 18.5H, Platelet Count 172, Mean Platelet Volume 6.6, Neutrophils (%) (Auto) 70.0, Lymphocytes (%) (Auto) 14.7L, Monocytes (%) (Auto) 11.5H, Eosinophils (%) (Auto ) 2.8, Basophils (%) (Auto) 1.0, Sodium Level 144, Potassium Level 3.6, Chloride Level 103, Carbon Dioxide Level 33H, Anion Gap 9, Blood Urea Nitrogen 26H, Creatinine 3.5H, Estimat Glomerular Filtration Rate , Glucose Level 73L, Calcium Level 8.4L, Total Bilirubin 1.2H, Direct Bilirubin 0.6H, Aspartate Amino Transf (AST/SGOT) 14L, Alanine Aminotransferase (ALT/SGPT) < 6L, Alkaline Phosphatase 78, Pro-B-Type Natriuretic Peptide 22243X, Total Protein 6.8, Albumin 2.0L, Globulin 4.8, Albumin/Globulin Ratio 0.4L Height (Feet): 5 Height (Inches): 3.00 Weight (Pounds): 165 General Appearance: no apparent distress Cardiovascular: normal rate Respiratory/Chest: decreased breath sounds Abdomen: soft Objective much less edematous COURTNEY LOPEZ Dec 03, 2016 10:46
--- NOTE | 2016-12-03 12:23 | General Progress Note ---
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 Anemia secondary to chronic disease. Continue to closely monitor. Work up reviewed --> s/p transfusion. watch counts, transfuse if hgb is below 8 # Positive occult blood. r/o gi bleed. gi following #. Anemia of kidney disease. Nephrology service following #. PEG tube placement #. Chronic ventilator dependent #. Permanent atrial fibrillation. #. Cellulitis and chronic lymphedema of the bilateral lower extremities. #. Congestive heart failure. Subjective ROS Limited/Unobtainable: Yes Allergies: Coded Allergies: AMOXICILLIN (Verified Allergy, Mild, RASH, 09/30/16) PENICILLINS (Unverified Allergy, Unknown, 09/30/16) Subjective NAD Objective Last 24 Hour Vital Signs Date Time Temp Pulse Resp B/P (MAP) Pulse Ox O2 Delivery O2 Flow Rate FiO2 12/03/16 12:00 60 12/03/16 12:00 71 12/03/16 12:00 98.0 75 19 98/50 98 Mechanical Ventilator 60 12/03/16 11:00 75 17 97/49 98 Mechanical Ventilator 60 12/03/16 10:00 91 17 96/56 98 Mechanical Ventilator 60 12/03/16 09:15 76 14 50 12/03/16 09:00 74 16 102/50 98 Mechanical Ventilator 60 12/03/16 08:29 76 12/03/16 08:00 60 12/03/16 08:00 97.8 77 21 95/57 98 Mechanical Ventilator 60 12/03/16 07:27 69 14 50 12/03/16 07:00 69 14 88/47 98 Mechanical Ventilator 60 12/03/16 06:00 78 14 91/43 98 Mechanical Ventilator 60 12/03/16 05:26 91 14 50 12/03/16 05:00 79 21 103/58 98 Mechanical Ventilator 60 12/03/16 04:00 98.2 76 15 77/42 100 Mechanical Ventilator 60 12/03/16 04:00 76 12/03/16 04:00 60 12/03/16 03:12 88 15 50 12/03/16 03:00 85 19 76/38 100 Mechanical Ventilator 60 12/03/16 02:00 75 16 97/49 100 Mechanical Ventilator 60 12/03/16 01:20 75 14 50 12/03/16 01:00 77 15 97/49 100 Mechanical Ventilator 60 12/03/16 00:00 60 12/03/16 00:00 76 12/03/16 00:00 98.6 76 17 91/49 99 Mechanical Ventilator 60 12/02/16 23:11 75 14 50 12/02/16 23:00 78 15 88/50 98 Mechanical Ventilator 60 12/02/16 22:00 81 15 91/49 98 Mechanical Ventilator 60 12/02/16 21:00 91 17 89/45 98 Mechanical Ventilator 60 12/02/16 20:33 109 15 50 12/02/16 20:00 98.4 117 21 115/44 99 Mechanical Ventilator 60 12/02/16 20:00 60 12/02/16 20:00 117 12/02/16 19:21 92 14 50 12/02/16 19:00 96 16 90/44 97 Mechanical Ventilator 60 12/02/16 18:00 75 15 96/54 99 Mechanical Ventilator 60 12/02/16 17:13 91 22 60 12/02/16 17:00 75 16 96/60 99 Mechanical Ventilator 60 12/02/16 16:00 98.2 96 17 95/62 99 Mechanical Ventilator 60 12/02/16 16:00 95 12/02/16 16:00 60 12/02/16 15:25 96 21 60 12/02/16 15:00 96 16 83/40 99 Mechanical Ventilator 60 12/02/16 14:00 96 15 83/40 99 Mechanical Ventilator 60 12/02/16 13:19 100 17 60 12/02/16 13:00 95 14 102/52 99 Mechanical Ventilator 60 Intake and Output 12/03/16 12/04/16 19:00 07:00 Intake Total 275 ml Output Total 20 ml Balance 255 ml IV Total 275 ml Output Urine Total 20 ml # Bowel Movements 2 Laboratory Tests 12/03/16 04:58: White Blood Count 9.9, Red Blood Count 2.90L, Hemoglobin 8.5L, Hematocrit 28.5L , Mean Corpuscular Volume 98, Mean Corpuscular Hemoglobin 29.5, Mean Corpuscular Hemoglobin Concent 30.0L, Red Cell Distribution Width 18.5H, Platelet Count 172, Mean Platelet Volume 6.6, Neutrophils (%) (Auto) 70.0, Lymphocytes (%) (Auto) 14.7L, Monocytes (%) (Auto) 11.5H, Eosinophils (%) (Auto ) 2.8, Basophils (%) (Auto) 1.0, Sodium Level 144, Potassium Level 3.6, Chloride Level 103, Carbon Dioxide Level 33H, Anion Gap 9, Blood Urea Nitrogen 26H, Creatinine 3.5H, Estimat Glomerular Filtration Rate , Glucose Level 73L, Calcium Level 8.4L, Total Bilirubin 1.2H, Direct Bilirubin 0.6H, Aspartate Amino Transf (AST/SGOT) 14L, Alanine Aminotransferase (ALT/SGPT) < 6L, Alkaline Phosphatase 78, Pro-B-Type Natriuretic Peptide 96914P, Total Protein 6.8, Albumin 2.0L, Globulin 4.8, Albumin/Globulin Ratio 0.4L Height (Feet): 5 Height (Inches): 3.00 Weight (Pounds): 165 General Appearance: no apparent distress EENT: normal ENT inspection Neck: normal alignment Cardiovascular: no gallop/murmur Abdomen: non tender, soft Neurologic: allocations clerk II-XII grossly normal Skin: warm/dry Serafin Haines Dec 03, 2016 12:23
--- NOTE | 2016-12-03 12:55 | Pulmonolgy Critical Care Note ---
Critical Care - Asmt/Plan Problems: (1) Acute and chronic respiratory failure (2) Anasarca (3) ATN (acute tubular necrosis) (4) Atrial fibrillation (5) Morbid obesity (6) Pickwickian syndrome Respiratory: monitor respiratory rate, adjust FIO2, CXR Cardiac: d/c radiation monitor Renal: F/U I&O, keep IV fluid, check electrolytes Infectious Disease: check cultures, continue antibiotics Gastrointestinal: continue feedings/current rate Endocrine: monitor blood sugar, continue sliding scale insulin Hematologic: monitor H/H, transfuse if hgb<8.5 Neurologic: PRN Morphine, keep patient comfortable Affect: PRN ativan Prophylaxis: Heparin Notes Reviewed: cardio, renal 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: nurses, consultants, director of caseworkfinancial analysis manager - Objective Last 24 Hour Vital Signs Date Time Temp Pulse Resp B/P (MAP) Pulse Ox O2 Delivery O2 Flow Rate FiO2 12/03/16 12:51 81 14 50 12/03/16 12:00 60 12/03/16 12:00 71 12/03/16 12:00 98.0 75 19 98/50 98 Mechanical Ventilator 60 12/03/16 11:00 75 17 97/49 98 Mechanical Ventilator 60 12/03/16 10:55 76 14 50 12/03/16 10:00 91 17 96/56 98 Mechanical Ventilator 60 12/03/16 09:15 76 14 50 12/03/16 09:00 74 16 102/50 98 Mechanical Ventilator 60 12/03/16 08:29 76 12/03/16 08:00 60 12/03/16 08:00 97.8 77 21 95/57 98 Mechanical Ventilator 60 12/03/16 07:27 69 14 50 12/03/16 07:00 69 14 88/47 98 Mechanical Ventilator 60 12/03/16 06:00 78 14 91/43 98 Mechanical Ventilator 60 12/03/16 05:26 91 14 50 12/03/16 05:00 79 21 103/58 98 Mechanical Ventilator 60 12/03/16 04:00 98.2 76 15 77/42 100 Mechanical Ventilator 60 12/03/16 04:00 76 12/03/16 04:00 60 12/03/16 03:12 88 15 50 12/03/16 03:00 85 19 76/38 100 Mechanical Ventilator 60 12/03/16 02:00 75 16 97/49 100 Mechanical Ventilator 60 12/03/16 01:20 75 14 50 12/03/16 01:00 77 15 97/49 100 Mechanical Ventilator 60 12/03/16 00:00 60 12/03/16 00:00 76 12/03/16 00:00 98.6 76 17 91/49 99 Mechanical Ventilator 60 12/02/16 23:11 75 14 50 12/02/16 23:00 78 15 88/50 98 Mechanical Ventilator 60 12/02/16 22:00 81 15 91/49 98 Mechanical Ventilator 60 12/02/16 21:00 91 17 89/45 98 Mechanical Ventilator 60 12/02/16 20:33 109 15 50 12/02/16 20:00 98.4 117 21 115/44 99 Mechanical Ventilator 60 12/02/16 20:00 60 12/02/16 20:00 117 12/02/16 19:21 92 14 50 12/02/16 19:00 96 16 90/44 97 Mechanical Ventilator 60 12/02/16 18:00 75 15 96/54 99 Mechanical Ventilator 60 12/02/16 17:13 91 22 60 12/02/16 17:00 75 16 96/60 99 Mechanical Ventilator 60 12/02/16 16:00 98.2 96 17 95/62 99 Mechanical Ventilator 60 12/02/16 16:00 95 12/02/16 16:00 60 12/02/16 15:25 96 21 60 12/02/16 15:00 96 16 83/40 99 Mechanical Ventilator 60 12/02/16 14:00 96 15 83/40 99 Mechanical Ventilator 60 12/02/16 13:19 100 17 60 12/02/16 13:00 95 14 102/52 99 Mechanical Ventilator 60 Status: awake Condition: critical HEENT: atraumatic Lungs: clear Heart: HR/BP stable, regular Abdomen: soft, active bowel sounds Extremities: no C/C/E, edema Decubiti: location Critical Care - Subjective ROS Limited/Unobtainable: No Interval Events: PEG was inserted Condition: critical EKG Rhythm: Sinus Rhythm FI02: 50 Vent Support Breath Rate: 14 Vent Support Mode: AC Vent Tidal Volume: 600 Sputum Amount: Scant PEEP: 5.0 PIP: 52 Fluids: none I&O: Intake and Output 12/03/16 12/04/16 19:00 07:00 Intake Total 275 ml Output Total 20 ml Balance 255 ml IV Total 275 ml Output Urine Total 20 ml # Bowel Movements 2 CXR: no change ET-Tube: 6.0 ET Position: 15 ARASH MIRANDA Dec 03, 2016 12:55
--- NOTE | 2016-12-03 14:31 | Anethesia Preoperative Eval ---
Anesthesia Pre-op PMH/ROS General Date of Evaluation: Dec 03, 2016 Time of Evaluation: 09:51 Anesthesiologist: lauren ASA Score: ASA 4 Mallampati Score Class I : Soft palate, uvula, fauces, pillars visible Class II: Soft palate, uvula, fauces visible Class III: Soft palate, base of uvula visible Class IV: Only hard plate visible Mallampati Classification: Class II Surgeon: leanna Diagnosis: dysphagia Surgical Procedure: egd/peg Anesthesia History: none Social History: smoking - former smoker Family History: no anesthesia problems Allergies: Coded Allergies: AMOXICILLIN (Verified Allergy, Mild, RASH, 09/30/16) PENICILLINS (Unverified Allergy, Unknown, 09/30/16) Medications: see eMAR Past Medical History Cardiovascular: Reports: HTN, arrhythmia Pulmonary: Reports: COPD Gastrointestinal/Genitourinary: Reports: GERD, ESRD Endocrine: Reports: DM Hematology/Immune: Reports: anemia Anesthesia Pre-op Phys. Exam Physician Exam Last Vital Signs Date Time Temp Pulse Resp B/P (MAP) Pulse Ox O2 Delivery O2 Flow Rate FiO2 12/03/16 14:00 80 17 109/54 98 Mechanical Ventilator 60 12/03/16 12:00 98.0 Constitutional: NAD Neurologic: other Cardiovascular: RRR Respiratory: CTA, other - on mechanical ventilator, ac14, fio2 .6, peep5, vt600 Gastrointestinal: S/NT/ND Airway Exam Mallampati Score: Class II MO: full Neck: tracheostomy TMD: 2fb ROM: limited Teeth: missing Anesthesia Pre-op A/P Labs Hematology Test 12/03/16 04:58 White Blood Count 9.9 K/UL (4.8-10.8) Red Blood Count 2.90 M/UL (4.20-5.40) L Hemoglobin 8.5 G/DL (12.0-16.0) L Hematocrit 28.5 % (37.0-47.0) L Mean Corpuscular Volume 98 FL (80-99) Mean Corpuscular Hemoglobin 29.5 PG (27.0-31.0) Mean Corpuscular Hemoglobin Concent 30.0 G/DL (32.0-36.0) L Red Cell Distribution Width 18.5 % (11.6-14.8) H Platelet Count 172 K/UL (150-450) Mean Platelet Volume 6.6 FL (6.5-10.1) Neutrophils (%) (Auto) 70.0 % (45.0-75.0) Lymphocytes (%) (Auto) 14.7 % (20.0-45.0) L Monocytes (%) (Auto) 11.5 % (1.0-10.0) H Eosinophils (%) (Auto) 2.8 % (0.0-3.0) Basophils (%) (Auto) 1.0 % (0.0-2.0) Chemistry Test 12/03/16 04:58 Sodium Level 144 MMOL/L (136-145) Potassium Level 3.6 MMOL/L (3.5-5.1) Chloride Level 103 MMOL/L (98-107) Carbon Dioxide Level 33 MMOL/L (21-32) H Anion Gap 9 mmol/L (5-15) Blood Urea Nitrogen 26 mg/dL (7-18) H Creatinine 3.5 MG/DL (0.55-1.30) H Estimat Glomerular Filtration Rate mL/min (>60) Glucose Level 73 MG/DL (74-106) L Calcium Level 8.4 MG/DL (8.5-10.1) L Total Bilirubin 1.2 MG/DL (0.2-1.0) H Direct Bilirubin 0.6 MG/DL (0.0-0.3) H Aspartate Amino Transf (AST/SGOT) 14 U/L (15-37) L Alanine Aminotransferase (ALT/SGPT) < 6 U/L (12-78) L Alkaline Phosphatase 78 U/L (46-116) Pro-B-Type Natriuretic Peptide 91064 pg/mL (0-125) H Total Protein 6.8 G/DL (6.4-8.2) Albumin 2.0 G/DL (3.4-5.0) L Globulin 4.8 g/dL Albumin/Globulin Ratio 0.4 (1.0-2.7) L Risk Assessment & Plan Assessment: asa4 Plan: mac Status Change Before Surgery: No Pre-Antibiotics Drug: vancomycin Given Within 1 Hr of Incision: Yes BOOKER YANG Dec 03, 2016 14:31
[2016-12-03] MEDS ORDERED: DiphenhydrAMINE 50mg/ml Inj IVP PRN (15:00)
[2016-12-03] MEDS ORDERED: LORazepam Inj 2mg/ml 1ml IV PRN (15:15)
[2016-12-03] MEDS ORDERED: Docusate 100mg cap ORAL SCH (18:00)
--- NOTE | 2016-12-03 18:00 | General Progress Note ---
Assessment/Plan Status: progressing Assessment/Plan This is a 76-year-old, morbidly obese female, admitted with anasarca and cellulitis of the lower leg. The patient was admitted to the directr observation unit on the monitor with the following medical problems. now transfered to icu as of 11-14-16, co of pruritis 1. Anasarca. She appears to be markedly swollen. She will need diuresis. Place the patient on Lasix 20 mg intravenous for now q.12 hours. Cardiology and Pulmonary on the case. We will follow orders. Check laboratory studies daily. lasix drip was discontinued in am, HD started 2. Chronic hypercapnic respiratory failure. Continue with vent support per Pulmonary. will discuss with pulmonary regarding trach issues 3 anemia. s./p transfusion of PRBC Continue monitoring CBC daily. patient to start procrit per nephrology 4. Pulmonary hypertension. hold Eliquis 2.5 mg twice a day until trach is refitted 5. Chronic kidney disease. We will monitor BUN and creatinine. Gentle diuresis for now. Nephrology has been consulted. further workup per nephrology. avoid nephrotoxic agents HD to start soon 6. DVT prophylaxis. The patient is on Eliquis. The patient is Full 7. nutrition: patient didn't tolerate NGT placment, patient is now s/p PEG placement 8. Alkalosis: resolved 9. Generalized anxiety: ativna prn, counselled for 15min 10. constipation: prn enema, continue with colace and MiraLax had revesion of trach on 11-23-16 benadryl 25 mg iv q 6 prn itching tube feeding to start soon continue HD per nephrology trach revision done today by Dr. Powell PEG to be placed tomorrow discussed with nursing staff HD today Subjective Date patient seen: Dec 03, 2016 ROS Limited/Unobtainable: Yes Allergies: Coded Allergies: AMOXICILLIN (Verified Allergy, Mild, RASH, 09/30/16) PENICILLINS (Unverified Allergy, Unknown, 09/30/16) Subjective patient had PEG placed today, now transfered out of ICU Objective Last 24 Hour Vital Signs Date Time Temp Pulse Resp B/P (MAP) Pulse Ox O2 Delivery O2 Flow Rate FiO2 12/03/16 16:00 60 12/03/16 14:55 97 14 50 12/03/16 14:00 80 17 109/54 98 Mechanical Ventilator 60 12/03/16 13:00 81 17 101/54 98 Mechanical Ventilator 60 12/03/16 12:51 81 14 50 12/03/16 12:00 60 12/03/16 12:00 71 12/03/16 12:00 98.0 75 19 98/50 98 Mechanical Ventilator 60 12/03/16 11:00 75 17 97/49 98 Mechanical Ventilator 60 12/03/16 10:55 76 14 50 12/03/16 10:00 91 17 96/56 98 Mechanical Ventilator 60 12/03/16 09:15 76 14 50 12/03/16 09:00 74 16 102/50 98 Mechanical Ventilator 60 12/03/16 08:29 76 12/03/16 08:00 60 12/03/16 08:00 97.8 77 21 95/57 98 Mechanical Ventilator 60 12/03/16 07:27 69 14 50 12/03/16 07:00 69 14 88/47 98 Mechanical Ventilator 60 12/03/16 06:00 78 14 91/43 98 Mechanical Ventilator 60 12/03/16 05:26 91 14 50 12/03/16 05:00 79 21 103/58 98 Mechanical Ventilator 60 12/03/16 04:00 98.2 76 15 77/42 100 Mechanical Ventilator 60 12/03/16 04:00 76 12/03/16 04:00 60 12/03/16 03:12 88 15 50 12/03/16 03:00 85 19 76/38 100 Mechanical Ventilator 60 12/03/16 02:00 75 16 97/49 100 Mechanical Ventilator 60 12/03/16 01:20 75 14 50 12/03/16 01:00 77 15 97/49 100 Mechanical Ventilator 60 12/03/16 00:00 60 12/03/16 00:00 76 12/03/16 00:00 98.6 76 17 91/49 99 Mechanical Ventilator 60 12/02/16 23:11 75 14 50 12/02/16 23:00 78 15 88/50 98 Mechanical Ventilator 60 12/02/16 22:00 81 15 91/49 98 Mechanical Ventilator 60 12/02/16 21:00 91 17 89/45 98 Mechanical Ventilator 60 12/02/16 20:33 109 15 50 12/02/16 20:00 98.4 117 21 115/44 99 Mechanical Ventilator 60 12/02/16 20:00 60 12/02/16 20:00 117 12/02/16 19:21 92 14 50 12/02/16 19:00 96 16 90/44 97 Mechanical Ventilator 60 12/02/16 18:00 75 15 96/54 99 Mechanical Ventilator 60 Intake and Output 12/03/16 12/04/16 19:00 07:00 Intake Total 275 ml Output Total 20 ml Balance 255 ml IV Total 275 ml Output Urine Total 20 ml # Bowel Movements 3 Laboratory Tests 12/03/16 04:58: White Blood Count 9.9, Red Blood Count 2.90L, Hemoglobin 8.5L, Hematocrit 28.5L , Mean Corpuscular Volume 98, Mean Corpuscular Hemoglobin 29.5, Mean Corpuscular Hemoglobin Concent 30.0L, Red Cell Distribution Width 18.5H, Platelet Count 172, Mean Platelet Volume 6.6, Neutrophils (%) (Auto) 70.0, Lymphocytes (%) (Auto) 14.7L, Monocytes (%) (Auto) 11.5H, Eosinophils (%) (Auto ) 2.8, Basophils (%) (Auto) 1.0, Sodium Level 144, Potassium Level 3.6, Chloride Level 103, Carbon Dioxide Level 33H, Anion Gap 9, Blood Urea Nitrogen 26H, Creatinine 3.5H, Estimat Glomerular Filtration Rate , Glucose Level 73L, Calcium Level 8.4L, Total Bilirubin 1.2H, Direct Bilirubin 0.6H, Aspartate Amino Transf (AST/SGOT) 14L, Alanine Aminotransferase (ALT/SGPT) < 6L, Alkaline Phosphatase 78, Pro-B-Type Natriuretic Peptide 87840O, Total Protein 6.8, Albumin 2.0L, Globulin 4.8, Albumin/Globulin Ratio 0.4L Height (Feet): 5 Height (Inches): 3.00 Weight (Pounds): 165 General Appearance: morbidly obese EENT: PERRL/EOMI, pharynx normal Neck: non-tender, supple Cardiovascular: normal rate, regular rhythm, no gallop/murmur, no JVD Respiratory/Chest: decreased breath sounds, accessory muscle use Abdomen: non tender, soft, no mass Extremities: swelling Edema: 4+ Arm (L), 4+ Arm (R), 4+ Leg (L), 4+ Leg (R), 4+ Pedal (L), 4+ Pedal ( R), 4+ Generalized Edema: severe edema 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
--- NOTE | 2016-12-03 18:42 | Cardiology Progress Note ---
Assessment/Plan Assessment/Plan 1. Permanent atrial fibrillation. 2. Chronic respiratory failure, on a mechanical ventilator. 3. Cor pulmonale. 4. Pulmonary hypertension. 5. Acute renal failure, now on dialysis. 6. Anemia. 7. Significant edema. 8. Hypoalbuminemia. 9. stool ob + bp borderlien ust finsihed dialysis 2.9 l removed has edema still on vent stool now ob + no anticoagulation Subjective ROS Limited/Unobtainable: Yes Subjective on the vent sleepy Objective Last 24 Hour Vital Signs Date Time Temp Pulse Resp B/P (MAP) Pulse Ox O2 Delivery O2 Flow Rate FiO2 12/03/16 17:29 114 14 50 12/03/16 16:00 60 12/03/16 14:55 97 14 50 12/03/16 14:49 97 12/03/16 14:00 80 17 109/54 98 Mechanical Ventilator 60 12/03/16 13:00 81 17 101/54 98 Mechanical Ventilator 60 12/03/16 12:51 81 14 50 12/03/16 12:00 60 12/03/16 12:00 71 12/03/16 12:00 98.0 75 19 98/50 98 Mechanical Ventilator 60 12/03/16 11:00 75 17 97/49 98 Mechanical Ventilator 60 12/03/16 10:55 76 14 50 12/03/16 10:00 91 17 96/56 98 Mechanical Ventilator 60 12/03/16 09:15 76 14 50 12/03/16 09:00 74 16 102/50 98 Mechanical Ventilator 60 12/03/16 08:29 76 12/03/16 08:00 60 12/03/16 08:00 97.8 77 21 95/57 98 Mechanical Ventilator 60 12/03/16 07:27 69 14 50 12/03/16 07:00 69 14 88/47 98 Mechanical Ventilator 60 12/03/16 06:00 78 14 91/43 98 Mechanical Ventilator 60 12/03/16 05:26 91 14 50 12/03/16 05:00 79 21 103/58 98 Mechanical Ventilator 60 12/03/16 04:00 98.2 76 15 77/42 100 Mechanical Ventilator 60 12/03/16 04:00 76 12/03/16 04:00 60 12/03/16 03:12 88 15 50 12/03/16 03:00 85 19 76/38 100 Mechanical Ventilator 60 12/03/16 02:00 75 16 97/49 100 Mechanical Ventilator 60 12/03/16 01:20 75 14 50 12/03/16 01:00 77 15 97/49 100 Mechanical Ventilator 60 12/03/16 00:00 60 12/03/16 00:00 76 12/03/16 00:00 98.6 76 17 91/49 99 Mechanical Ventilator 60 12/02/16 23:11 75 14 50 12/02/16 23:00 78 15 88/50 98 Mechanical Ventilator 60 12/02/16 22:00 81 15 91/49 98 Mechanical Ventilator 60 12/02/16 21:00 91 17 89/45 98 Mechanical Ventilator 60 12/02/16 20:33 109 15 50 12/02/16 20:00 98.4 117 21 115/44 99 Mechanical Ventilator 60 12/02/16 20:00 60 12/02/16 20:00 117 12/02/16 19:21 92 14 50 12/02/16 19:00 96 16 90/44 97 Mechanical Ventilator 60 General Appearance: no apparent distress, on vent, patient on isolation Neck: supple Respiratory/Chest: lungs clear, normal breath sounds Abdomen: non tender, soft Extremities: severe edema Intake and Output 12/03/16 12/04/16 19:00 07:00 Intake Total 345 ml Output Total 20 ml Balance 325 ml IV Total 275 ml Tube Feeding 20 ml Other 50 ml Output Urine Total 20 ml # Bowel Movements 3 Laboratory Tests Test 12/03/16 04:58 White Blood Count 9.9 K/UL (4.8-10.8) Red Blood Count 2.90 M/UL (4.20-5.40) L Hemoglobin 8.5 G/DL (12.0-16.0) L Hematocrit 28.5 % (37.0-47.0) L Mean Corpuscular Volume 98 FL (80-99) Mean Corpuscular Hemoglobin 29.5 PG (27.0-31.0) Mean Corpuscular Hemoglobin Concent 30.0 G/DL (32.0-36.0) L Red Cell Distribution Width 18.5 % (11.6-14.8) H Platelet Count 172 K/UL (150-450) Mean Platelet Volume 6.6 FL (6.5-10.1) Neutrophils (%) (Auto) 70.0 % (45.0-75.0) Lymphocytes (%) (Auto) 14.7 % (20.0-45.0) L Monocytes (%) (Auto) 11.5 % (1.0-10.0) H Eosinophils (%) (Auto) 2.8 % (0.0-3.0) Basophils (%) (Auto) 1.0 % (0.0-2.0) Sodium Level 144 MMOL/L (136-145) Potassium Level 3.6 MMOL/L (3.5-5.1) Chloride Level 103 MMOL/L (98-107) Carbon Dioxide Level 33 MMOL/L (21-32) H Anion Gap 9 mmol/L (5-15) Blood Urea Nitrogen 26 mg/dL (7-18) H Creatinine 3.5 MG/DL (0.55-1.30) H Estimat Glomerular Filtration Rate mL/min (>60) Glucose Level 73 MG/DL (74-106) L Calcium Level 8.4 MG/DL (8.5-10.1) L Total Bilirubin 1.2 MG/DL (0.2-1.0) H Direct Bilirubin 0.6 MG/DL (0.0-0.3) H Aspartate Amino Transf (AST/SGOT) 14 U/L (15-37) L Alanine Aminotransferase (ALT/SGPT) < 6 U/L (12-78) L Alkaline Phosphatase 78 U/L (46-116) Pro-B-Type Natriuretic Peptide 81129 pg/mL (0-125) H Total Protein 6.8 G/DL (6.4-8.2) Albumin 2.0 G/DL (3.4-5.0) L Globulin 4.8 g/dL Albumin/Globulin Ratio 0.4 (1.0-2.7) L BRIANA TELLES Dec 03, 2016 18:42
--- NOTE | 2016-12-03 18:45 | Procedure Note ---
DATE OF PROCEDURE: 12/03/2016 SURGEON: Bolivar Noriega M.D. REFERRING PHYSICIAN: Manny Nolan M.D. PROCEDURE: Upper endoscopy with PEG placement. ANESTHESIOLOGIST: Barbara Joshi M.D. INSTRUMENT: Olympus adult flexible upper endoscope. INDICATION: Dysphagia. The procedure, risks, benefits, and possible consequences, including hemorrhage, aspiration, perforation and infection, and alternative treatments, were explained to the patient/legal guardian by Dr. Bolivar Noriega and the patient/legal guardian understood and accepted these risks. DESCRIPTION OF PROCEDURE: After informed consent was obtained and the patient was adequately sedated, Olympus upper endoscope was advanced from mouth into the second portion of the duodenum and retroflexion was performed in the stomach. Then, under endoscopic guidance under sterile condition, a 20-Amharic pull type of G-tube was successfully placed in the epigastric area. The distance from the tip of the tube to skin was about 4 cm in size. The patient tolerated the procedure very well without any complication. SUMMARY FINDINGS: Status post successful PEG placement. RECOMMENDATIONS: 1. Abdominal binder. 2. Elevate the head of the bed at all times. 3. G-tube flush. 4. G-tube care. 5. Start tube feeding later today. 6. The patient received dose of vancomycin prior to this procedure. I want to thank, Dr. Nolan, for this kind referral. Bolivar Noriega M.D. DR: BATOOL JOB#: [id number] CC: Manny Nolan M.D.
[2016-12-03] MEDS: Dyna-Hex 2% Top Sol 2oz TOPIC SCH (20:00)
[2016-12-03] MEDS: Epogen (for non ESRD use) SUBQ SCH (21:22)
[2016-12-04] VITALS: BP 107/63
[2016-12-04 04:00] VITALS: BP 86/69
[2016-12-04] MEDS: Midodrine 10mg tab ORAL SCH ×3 (05:38→21:35)
[2016-12-04 06:26] LABS: BASOPHILS % (AUTO) 0.9 % (0.0-2.0); EOSINOPHILS % (AUTO) 1.2 % (0.0-3.0); LYMPHOCYTES % (AUTO) 15.6 % (20.0-45.0); MEAN CORPUSCULAR HEMOGLOBIN 30.6 PG (27.0-31.0); MEAN CORPUSCULAR HGB CONC 30.6 G/DL (32.0-36.0); MEAN CORPUSCULAR VOLUME 100 FL (80-99); MEAN PLATELET VOLUME 6.5 FL (6.5-10.1); MONOCYTES % (AUTO) 9.6 % (1.0-10.0); NEUTROPHILS % (AUTO) 72.7 % (45.0-75.0); PLATELET COUNT 164 K/UL (150-450); RED BLOOD COUNT 3.01 M/UL (4.20-5.40); RED CELL DISTRIBUTION WIDTH 18.7 % (11.6-14.8); WHITE BLOOD COUNT 8.3 K/UL (4.8-10.8)
[2016-12-04 08:05] VITALS: BP_SYST 111; BP_SYST 161; BP_DIAS 63; BP_DIAS 70
[2016-12-04 08:20] LABS: ALANINE AMINOTRANSFERASE < 6 U/L (12-78); ALBUMIN/GLOBULIN RATIO 0.4 (1.0-2.7); ANION GAP 11 mmol/L (5-15); ASPARTATE AMINO TRANSFERASE 27 U/L (15-37); CALCIUM 8.6 MG/DL (8.5-10.1); CARBON DIOXIDE 28 MMOL/L (21-32); CHLORIDE 100 MMOL/L (98-107); CREATININE 3.3 MG/DL (0.55-1.30); POTASSIUM 3.9 MMOL/L (3.5-5.1); SODIUM 139 MMOL/L (136-145); TOTAL PROTEIN 7.6 G/DL (6.4-8.2)
[2016-12-04 08:21] LABS: BILIRUBIN,DIRECT 0.8 MG/DL (0.0-0.3)
--- NOTE | 2016-12-04 08:32 | General Progress Note ---
Assessment/Plan Problem List: (1) Positive occult stool blood test ICD Codes: R19.5 - Other fecal abnormalities SNOMED: 88595426, 640944581 (2) Morbid obesity ICD Codes: E66.01 - Morbid (severe) obesity due to excess calories SNOMED: 363046921, 72230076925357 (3) Atrial fibrillation ICD Codes: I48.91 - Unspecified atrial fibrillation SNOMED: 53768835 (4) CHF (congestive heart failure) ICD Codes: I50.9 - Heart failure, unspecified SNOMED: 00898479 (5) PEG (percutaneous endoscopic gastrostomy) adjustment/replacement/removal ICD Codes: Z43.1 - Encounter for attention to gastrostomy SNOMED: 638513296, 273594229 Assessment/Plan s/p PEG GTF fu labs Subjective ROS Limited/Unobtainable: Yes Allergies: Coded Allergies: AMOXICILLIN (Verified Allergy, Mild, RASH, 09/30/16) PENICILLINS (Unverified Allergy, Unknown, 09/30/16) Subjective no event transferred to lexi Objective Last 24 Hour Vital Signs Date Time Temp Pulse Resp B/P (MAP) Pulse Ox O2 Delivery O2 Flow Rate FiO2 12/04/16 08:05 98.2 115 16 111/63 98 Mechanical Ventilator 50 12/04/16 08:00 60 12/04/16 06:55 112 14 50 12/04/16 05:55 110 14 50 12/04/16 04:00 98.4 104 14 86/69 96 Mechanical Ventilator 60 12/04/16 04:00 60 12/04/16 04:00 99 12/04/16 03:10 81 14 50 12/04/16 01:10 89 14 50 12/04/16 00:00 98.6 89 14 107/63 99 Mechanical Ventilator 60 12/03/16 23:20 92 14 50 12/03/16 21:10 97 15 50 12/03/16 20:00 98 12/03/16 20:00 97.9 95 16 92/52 98 Mechanical Ventilator 60 12/03/16 20:00 60 12/03/16 19:00 110 14 50 12/03/16 17:29 114 14 50 12/03/16 16:00 60 12/03/16 14:55 97 14 50 12/03/16 14:49 97 12/03/16 14:00 80 17 109/54 98 Mechanical Ventilator 60 12/03/16 13:00 81 17 101/54 98 Mechanical Ventilator 60 12/03/16 12:51 81 14 50 12/03/16 12:00 60 12/03/16 12:00 71 12/03/16 12:00 98.0 75 19 98/50 98 Mechanical Ventilator 60 12/03/16 11:00 75 17 97/49 98 Mechanical Ventilator 60 12/03/16 10:55 76 14 50 12/03/16 10:00 91 17 96/56 98 Mechanical Ventilator 60 12/03/16 09:15 76 14 50 12/03/16 09:00 74 16 102/50 98 Mechanical Ventilator 60 Laboratory Tests 12/04/16 05:50: White Blood Count 8.3, Red Blood Count 3.01L, Hemoglobin 9.2L, Hematocrit 30.0L , Mean Corpuscular Volume 100H, Mean Corpuscular Hemoglobin 30.6, Mean Corpuscular Hemoglobin Concent 30.6L, Red Cell Distribution Width 18.7H, Platelet Count 164, Mean Platelet Volume 6.5, Neutrophils (%) (Auto) 72.7, Lymphocytes (%) (Auto) 15.6L, Monocytes (%) (Auto) 9.6, Eosinophils (%) (Auto) 1.2, Basophils (%) (Auto) 0.9, Sodium Level 139, Potassium Level 3.9, Chloride Level 100, Carbon Dioxide Level 28, Anion Gap 11, Blood Urea Nitrogen 20H, Creatinine 3.3H, Estimat Glomerular Filtration Rate , Glucose Level 95, Calcium Level 8.6, Total Bilirubin 1.5H, Direct Bilirubin 0.8H, Aspartate Amino Transf ( AST/SGOT) 27, Alanine Aminotransferase (ALT/SGPT) < 6L, Alkaline Phosphatase 110 , Pro-B-Type Natriuretic Peptide 40975M, Total Protein 7.6, Albumin 2.1L, Globulin 5.5, Albumin/Globulin Ratio 0.4L Height (Feet): 5 Height (Inches): 3.00 Weight (Pounds): 165 General Appearance: no apparent distress EENT: normal ENT inspection Neck: supple Cardiovascular: normal rate Respiratory/Chest: decreased breath sounds Abdomen: normal bowel sounds, non tender, soft Extremities: non-tender RUDDY RODRIGUEZ Dec 04, 2016 08:32
--- NOTE | 2016-12-04 09:07 | Pulmonology Progress Note ---
Assessment/Plan Problems: (1) Chronic respiratory failure (2) Anasarca (3) ATN (acute tubular necrosis) (4) Anemia (5) Peripheral edema (6) Pickwickian syndrome (7) MINA (obstructive sleep apnea) (8) Morbid obesity Respiratory: monitor respiratory rate, adjust FIO2, CXR Cardiac: continue to monitor HR/BP Renal: F/U I&O, keep IV fluid, check electrolytes Infectious Disease: check cultures, continue antibiotics Gastrointestinal: continue feedings/current rate Endocrine: monitor blood sugar, continue sliding scale insulin Hematologic: transfuse if hgb<8.5 Neurologic: PRN Ativan, PRN Morphine, keep patient comfortable Affect: PRN ativan Prophylaxis: Heparin Disposition: keep in ICU Notes Reviewed: machine binding folder, renal 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: nurses, consultants, community case manager Subjective ROS Limited/Unobtainable: No Constitutional: Reports: no symptoms HEENT: Repors: no symptoms Respiratory: Reports: no symptoms Allergies: Coded Allergies: AMOXICILLIN (Verified Allergy, Mild, RASH, 09/30/16) PENICILLINS (Unverified Allergy, Unknown, 09/30/16) Objective Last 24 Hour Vital Signs Date Time Temp Pulse Resp B/P (MAP) Pulse Ox O2 Delivery O2 Flow Rate FiO2 12/04/16 08:05 98.2 115 16 111/63 98 Mechanical Ventilator 50 12/04/16 08:00 60 12/04/16 06:55 112 14 50 12/04/16 05:55 110 14 50 12/04/16 04:00 98.4 104 14 86/69 96 Mechanical Ventilator 60 12/04/16 04:00 60 12/04/16 04:00 99 12/04/16 03:10 81 14 50 12/04/16 01:10 89 14 50 12/04/16 00:00 98.6 89 14 107/63 99 Mechanical Ventilator 60 12/03/16 23:20 92 14 50 12/03/16 21:10 97 15 50 12/03/16 20:00 98 12/03/16 20:00 97.9 95 16 92/52 98 Mechanical Ventilator 60 12/03/16 20:00 60 12/03/16 19:00 110 14 50 12/03/16 17:29 114 14 50 12/03/16 16:00 60 12/03/16 14:55 97 14 50 12/03/16 14:49 97 12/03/16 14:00 80 17 109/54 98 Mechanical Ventilator 60 12/03/16 13:00 81 17 101/54 98 Mechanical Ventilator 60 12/03/16 12:51 81 14 50 12/03/16 12:00 60 12/03/16 12:00 71 12/03/16 12:00 98.0 75 19 98/50 98 Mechanical Ventilator 60 12/03/16 11:00 75 17 97/49 98 Mechanical Ventilator 60 12/03/16 10:55 76 14 50 12/03/16 10:00 91 17 96/56 98 Mechanical Ventilator 60 12/03/16 09:15 76 14 50 General Appearance: WD/WN HEENT: normocephalic, atraumatic Respiratory/Chest: chest wall non-tender, lungs clear Breasts: no masses Cardiovascular: normal rate Abdomen: normal bowel sounds, no organomegaly Extremities: no cyanosis, no clubbing Skin: no rash Laboratory Tests 12/04/16 05:50: White Blood Count 8.3, Red Blood Count 3.01L, Hemoglobin 9.2L, Hematocrit 30.0L , Mean Corpuscular Volume 100H, Mean Corpuscular Hemoglobin 30.6, Mean Corpuscular Hemoglobin Concent 30.6L, Red Cell Distribution Width 18.7H, Platelet Count 164, Mean Platelet Volume 6.5, Neutrophils (%) (Auto) 72.7, Lymphocytes (%) (Auto) 15.6L, Monocytes (%) (Auto) 9.6, Eosinophils (%) (Auto) 1.2, Basophils (%) (Auto) 0.9, Sodium Level 139, Potassium Level 3.9, Chloride Level 100, Carbon Dioxide Level 28, Anion Gap 11, Blood Urea Nitrogen 20H, Creatinine 3.3H, Estimat Glomerular Filtration Rate , Glucose Level 95, Calcium Level 8.6, Total Bilirubin 1.5H, Direct Bilirubin 0.8H, Aspartate Amino Transf ( AST/SGOT) 27, Alanine Aminotransferase (ALT/SGPT) < 6L, Alkaline Phosphatase 110 , Pro-B-Type Natriuretic Peptide 25014O, Total Protein 7.6, Albumin 2.1L, Globulin 5.5, Albumin/Globulin Ratio 0.4L Current Medications Medications (Trade) Dose Ordered Sig/Kalyn Route PRN Reason Start Time Stop Time Status Last Admin Dose Admin Acetaminophen (Tylenol) 650 mg Q4H PRN ORAL Mild Pain/Temp > 100.5 12/03/16 15:00 12/12/16 14:59 Allopurinol (Zyloprim) 200 mg DAILY ORAL 12/04/16 09:00 01/02/17 08:59 Chlorhexidine Gluconate (Marni-Hex 2%) 1 applic Q24H TOPIC 12/03/16 20:00 12/27/16 19:59 12/03/16 20:00 Diphenhydramine HCl (Benadryl) 25 mg Q6H PRN IVP Itching 12/03/16 15:00 12/19/16 14:59 Docusate Sodium (Colace) 100 mg TWICE A DAY GT 12/04/16 09:00 01/03/17 08:59 Epoetin Santos (Procrit (for non ESRD use)) 10,000 units TUE-TUE-TUE SUBQ 12/03/16 21:00 12/17/16 20:59 12/03/16 21:22 Folic Acid (Folate) 1 mg DAILY ORAL 12/04/16 09:00 12/12/16 08:59 Gabapentin (Neurontin) 600 mg BID ORAL 12/03/16 18:00 12/14/16 08:59 12/03/16 17:48 Lorazepam (Ativan 2mg/ml 1ml) 2 mg Q2H PRN IV For Anxiety 12/03/16 15:15 12/06/16 13:14 12/04/16 04:49 Midodrine (Pro-Amatine) 10 mg EVERY 8 HOURS ORAL 12/03/16 22:00 12/21/16 12:59 12/04/16 05:38 Pantoprazole (Protonix) 40 mg DAILY IVP 12/04/16 09:00 12/12/16 08:59 Polyethylene Glycol (Miralax) 17 gm DAILY ORAL 12/04/16 09:00 12/12/16 08:59 Pravastatin Sodium (Pravachol) 20 mg BEDTIME ORAL 12/03/16 21:00 12/12/16 20:59 12/03/16 21:22 Sildenafil Citrate (Revatio) 20 mg THREE TIMES A DAY ORAL 12/03/16 18:00 12/12/16 08:59 12/03/16 17:45 ARASH MIRANDA 28, 2017 09:07
[2016-12-04] MEDS: Miralax 17gm pkt ORAL SCH (09:16)
[2016-12-04] MEDS: Revatio 20mg tab ORAL SCH ×3 (09:16→17:21)
[2016-12-04] MEDS: Docusate 100mg/10ml Liq GT SCH ×2 (09:16→17:21)
[2016-12-04] MEDS: Allopurinol 100mg Tab ORAL SCH (09:17)
[2016-12-04] MEDS: Pantoprazole Inj IVP SCH (09:17)
[2016-12-04] MEDS ORDERED: NS 500ML IV ONE (09:34)
[2016-12-04] MEDS ORDERED: Tubing IV Secondary IV ONE (09:34)
--- NOTE | 2016-12-04 09:44 | Infectious Diseases Prog Note ---
Assessment/Plan Assessment/Plan Abx: IV Vancomycin 11/11-11/12; 11/17-11/26 IV Cefepime 11/11-11/12 IV Ancef 11/12-11/28 Flagyl x1 11/11 Assesment: Cellulitis BLE and R arm- in the setting of chronic leg edema/venous stasis, s/ p Rx- Limited Venous duplex BLE (non diagnostic), no DVT R arm;Cellulitis resolved;Now residual venous stasis changes. -Bcx Neg Anasarca/ bilateral leg lymphedema -CXR 12/03:Bilateral interstitial and alveolar edema persists Afebrile, no leukocytosis REnal insufficiency VRE colonzied COPD Diastolic CHF chronic resp failure, vent/trach dependent, Gtbue, pAfib, pleural effusion, MINA , CKD, GERD, morbid obesity, [facility] resident Plan: -Continue to monitor off abx -s/p 18d IV Ancef 11/28 -s/p 10 d IV Vancomycin 11/26 -extremity elevation -edema management -Monitor CBC/BMP, temperatures - vent support, trach care, aspiration precautions Thank you for this consultation. Will continue to follow along with you. 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 RN. Subjective Allergies: Coded Allergies: AMOXICILLIN (Verified Allergy, Mild, RASH, 09/30/16) PENICILLINS (Unverified Allergy, Unknown, 09/30/16) Subjective afebrile no leukocytosis transferred to the floors Objective Vital Signs Last 24 Hour Vital Signs Date Time Temp Pulse Resp B/P (MAP) Pulse Ox O2 Delivery O2 Flow Rate FiO2 12/04/16 08:05 98.2 115 16 111/63 98 Mechanical Ventilator 50 12/04/16 08:00 106 12/04/16 08:00 60 12/04/16 06:55 112 14 50 12/04/16 05:55 110 14 50 12/04/16 04:00 98.4 104 14 86/69 96 Mechanical Ventilator 60 12/04/16 04:00 60 12/04/16 04:00 99 12/04/16 03:10 81 14 50 12/04/16 01:10 89 14 50 12/04/16 00:00 98.6 89 14 107/63 99 Mechanical Ventilator 60 12/03/16 23:20 92 14 50 12/03/16 21:10 97 15 50 12/03/16 20:00 98 12/03/16 20:00 97.9 95 16 92/52 98 Mechanical Ventilator 60 12/03/16 20:00 60 12/03/16 19:00 110 14 50 12/03/16 17:29 114 14 50 12/03/16 16:00 60 12/03/16 14:55 97 14 50 12/03/16 14:49 97 12/03/16 14:00 80 17 109/54 98 Mechanical Ventilator 60 12/03/16 13:00 81 17 101/54 98 Mechanical Ventilator 60 12/03/16 12:51 81 14 50 12/03/16 12:00 60 12/03/16 12:00 71 12/03/16 12:00 98.0 75 19 98/50 98 Mechanical Ventilator 60 12/03/16 11:00 75 17 97/49 98 Mechanical Ventilator 60 12/03/16 10:55 76 14 50 12/03/16 10:00 91 17 96/56 98 Mechanical Ventilator 60 Height (Feet): 5 Height (Inches): 3.00 Weight (Pounds): 165 Objective General Appearance: WD/WN HEENT: trach in palce, Respiratory/Chest: chest wall non-tender, lungs clear Cardiovascular/Chest: normal peripheral pulses, normal rate Abdomen: normal bowel sounds, non tender Ext: venous statis changes, now b/l legs back to baseline; cellulitis resolved, swelling improved reviewed Laboratory Tests Test 12/04/16 05:50 White Blood Count 8.3 K/UL (4.8-10.8) Red Blood Count 3.01 M/UL (4.20-5.40) L Hemoglobin 9.2 G/DL (12.0-16.0) L Hematocrit 30.0 % (37.0-47.0) L Mean Corpuscular Volume 100 FL (80-99) H Mean Corpuscular Hemoglobin 30.6 PG (27.0-31.0) Mean Corpuscular Hemoglobin Concent 30.6 G/DL (32.0-36.0) L Red Cell Distribution Width 18.7 % (11.6-14.8) H Platelet Count 164 K/UL (150-450) Mean Platelet Volume 6.5 FL (6.5-10.1) Neutrophils (%) (Auto) 72.7 % (45.0-75.0) Lymphocytes (%) (Auto) 15.6 % (20.0-45.0) L Monocytes (%) (Auto) 9.6 % (1.0-10.0) Eosinophils (%) (Auto) 1.2 % (0.0-3.0) Basophils (%) (Auto) 0.9 % (0.0-2.0) Sodium Level 139 MMOL/L (136-145) Potassium Level 3.9 MMOL/L (3.5-5.1) Chloride Level 100 MMOL/L (98-107) Carbon Dioxide Level 28 MMOL/L (21-32) Anion Gap 11 mmol/L (5-15) Blood Urea Nitrogen 20 mg/dL (7-18) H Creatinine 3.3 MG/DL (0.55-1.30) H Estimat Glomerular Filtration Rate mL/min (>60) Glucose Level 95 MG/DL (74-106) Calcium Level 8.6 MG/DL (8.5-10.1) Total Bilirubin 1.5 MG/DL (0.2-1.0) H Direct Bilirubin 0.8 MG/DL (0.0-0.3) H Aspartate Amino Transf (AST/SGOT) 27 U/L (15-37) Alanine Aminotransferase (ALT/SGPT) < 6 U/L (12-78) L Alkaline Phosphatase 110 U/L (46-116) Pro-B-Type Natriuretic Peptide 97684 pg/mL (0-125) H Total Protein 7.6 G/DL (6.4-8.2) Albumin 2.1 G/DL (3.4-5.0) L Globulin 5.5 g/dL Albumin/Globulin Ratio 0.4 (1.0-2.7) L Current Medications Medications (Trade) Dose Ordered Sig/Kalyn Route PRN Reason Start Time Stop Time Status Last Admin Dose Admin Acetaminophen (Tylenol) 650 mg Q4H PRN ORAL Mild Pain/Temp > 100.5 12/03/16 15:00 12/12/16 14:59 Allopurinol (Zyloprim) 200 mg DAILY ORAL 12/04/16 09:00 01/02/17 08:59 12/04/16 09:17 Chlorhexidine Gluconate (Marni-Hex 2%) 1 applic Q24H TOPIC 12/03/16 20:00 12/27/16 19:59 12/03/16 20:00 Diphenhydramine HCl (Benadryl) 25 mg Q6H PRN IVP Itching 12/03/16 15:00 12/19/16 14:59 Docusate Sodium (Colace) 100 mg TWICE A DAY GT 12/04/16 09:00 01/03/17 08:59 12/04/16 09:16 Epoetin Santos (Procrit (for non ESRD use)) 10,000 units TUE-TUE-TUE SUBQ 12/03/16 21:00 12/17/16 20:59 12/03/16 21:22 Folic Acid (Folate) 1 mg DAILY ORAL 12/04/16 09:00 12/12/16 08:59 12/04/16 09:17 Gabapentin (Neurontin) 600 mg BID ORAL 12/03/16 18:00 12/14/16 08:59 12/04/16 09:17 Lorazepam (Ativan 2mg/ml 1ml) 2 mg Q2H PRN IV For Anxiety 12/03/16 15:15 12/06/16 13:14 12/04/16 04:49 Midodrine (Pro-Amatine) 10 mg EVERY 8 HOURS ORAL 12/03/16 22:00 12/21/16 12:59 12/04/16 05:38 Pantoprazole (Protonix) 40 mg DAILY IVP 12/04/16 09:00 12/12/16 08:59 12/04/16 09:17 Polyethylene Glycol (Miralax) 17 gm DAILY ORAL 12/04/16 09:00 12/12/16 08:59 12/04/16 09:16 Pravastatin Sodium (Pravachol) 20 mg BEDTIME ORAL 12/03/16 21:00 12/12/16 20:59 12/03/16 21:22 Sildenafil Citrate (Revatio) 20 mg THREE TIMES A DAY ORAL 12/03/16 18:00 12/12/16 08:59 12/04/16 09:16 Danielle Guo M.D. Dec 04, 2016 09:44
--- NOTE | 2016-12-04 10:12 | Cardiology Progress Note ---
Assessment/Plan Assessment/Plan 1. Permanent atrial fibrillation. 2. Chronic respiratory failure, on a mechanical ventilator. 3. Cor pulmonale. 4. Pulmonary hypertension. 5. Acute renal failure, now on dialysis. 6. Anemia. 7. Significant edema. 8. Hypoalbuminemia. 9. stool ob + bp borderline last dialyixed yest has edema still on vent stool now ob + no anticoagulation for now Subjective ROS Limited/Unobtainable: Yes Subjective on the vent sleepy Objective Last 24 Hour Vital Signs Date Time Temp Pulse Resp B/P (MAP) Pulse Ox O2 Delivery O2 Flow Rate FiO2 12/04/16 08:30 109 14 50 12/04/16 08:05 98.2 115 16 111/63 98 Mechanical Ventilator 50 12/04/16 08:00 106 12/04/16 08:00 60 12/04/16 06:55 112 14 50 12/04/16 05:55 110 14 50 12/04/16 04:00 98.4 104 14 86/69 96 Mechanical Ventilator 60 12/04/16 04:00 60 12/04/16 04:00 99 12/04/16 03:10 81 14 50 12/04/16 01:10 89 14 50 12/04/16 00:00 98.6 89 14 107/63 99 Mechanical Ventilator 60 12/03/16 23:20 92 14 50 12/03/16 21:10 97 15 50 12/03/16 20:00 98 12/03/16 20:00 97.9 95 16 92/52 98 Mechanical Ventilator 60 12/03/16 20:00 60 12/03/16 19:00 110 14 50 12/03/16 17:29 114 14 50 12/03/16 16:00 60 12/03/16 14:55 97 14 50 12/03/16 14:49 97 12/03/16 14:00 80 17 109/54 98 Mechanical Ventilator 60 12/03/16 13:00 81 17 101/54 98 Mechanical Ventilator 60 12/03/16 12:51 81 14 50 12/03/16 12:00 60 12/03/16 12:00 71 12/03/16 12:00 98.0 75 19 98/50 98 Mechanical Ventilator 60 12/03/16 11:00 75 17 97/49 98 Mechanical Ventilator 60 12/03/16 10:55 76 14 50 General Appearance: no apparent distress, on vent, patient on isolation Neck: supple Cardiovascular: irregularly irregular Respiratory/Chest: rhonchi - bilaterally Abdomen: normal bowel sounds, non tender, soft, other - sig abn wall edema Extremities: severe edema Laboratory Tests Test 12/04/16 05:50 White Blood Count 8.3 K/UL (4.8-10.8) Red Blood Count 3.01 M/UL (4.20-5.40) L Hemoglobin 9.2 G/DL (12.0-16.0) L Hematocrit 30.0 % (37.0-47.0) L Mean Corpuscular Volume 100 FL (80-99) H Mean Corpuscular Hemoglobin 30.6 PG (27.0-31.0) Mean Corpuscular Hemoglobin Concent 30.6 G/DL (32.0-36.0) L Red Cell Distribution Width 18.7 % (11.6-14.8) H Platelet Count 164 K/UL (150-450) Mean Platelet Volume 6.5 FL (6.5-10.1) Neutrophils (%) (Auto) 72.7 % (45.0-75.0) Lymphocytes (%) (Auto) 15.6 % (20.0-45.0) L Monocytes (%) (Auto) 9.6 % (1.0-10.0) Eosinophils (%) (Auto) 1.2 % (0.0-3.0) Basophils (%) (Auto) 0.9 % (0.0-2.0) Sodium Level 139 MMOL/L (136-145) Potassium Level 3.9 MMOL/L (3.5-5.1) Chloride Level 100 MMOL/L (98-107) Carbon Dioxide Level 28 MMOL/L (21-32) Anion Gap 11 mmol/L (5-15) Blood Urea Nitrogen 20 mg/dL (7-18) H Creatinine 3.3 MG/DL (0.55-1.30) H Estimat Glomerular Filtration Rate mL/min (>60) Glucose Level 95 MG/DL (74-106) Calcium Level 8.6 MG/DL (8.5-10.1) Total Bilirubin 1.5 MG/DL (0.2-1.0) H Direct Bilirubin 0.8 MG/DL (0.0-0.3) H Aspartate Amino Transf (AST/SGOT) 27 U/L (15-37) Alanine Aminotransferase (ALT/SGPT) < 6 U/L (12-78) L Alkaline Phosphatase 110 U/L (46-116) Pro-B-Type Natriuretic Peptide 34155 pg/mL (0-125) H Total Protein 7.6 G/DL (6.4-8.2) Albumin 2.1 G/DL (3.4-5.0) L Globulin 5.5 g/dL Albumin/Globulin Ratio 0.4 (1.0-2.7) L BRIANA TELLES Dec 04, 2016 10:12
--- NOTE | 2016-12-04 11:30 | Diagnostic Imaging Report ---
Indication: DYSPNEA Technique: One view of the chest Comparison: 12/03/2016 Findings: Stable satisfactory positions of tracheostomy, right jugular temporary dialysis catheter. There is interim considerable improvement of parenchymal disease in the right lung, although congestion persists. Heart remains markedly enlarged. Impression: Improved although persistent right lung parenchymal infiltrates versus edema, over one day. Other stable findings as described
[2016-12-04 11:56] VITALS: BP 95/52
--- NOTE | 2016-12-04 12:36 | General Progress Note ---
Assessment/Plan Status: stable Assessment/Plan Cellulitis BLE and R arm- in the setting of chronic leg edema- r/o DVT Anasarca/ bilateral leg lymphedema CKD- and acute renal failure - Acute respiratory failure s/p Trach Obese COPD , CHF, Diastolic MINA UTI Anemia GI Bleed, GI bleeding At Fib Pulm HTN h/o Low B12 plan: Now has PEG last HD t 12/01, next 12/03next 12/06 K supplement as needed on EPOGEN 24 H urine collection in process: CrCl 6 Monitor renal parameters- optimize cardiac and pulm status avoid nephrotoxics- pulmonary support- transfuse as needed ? DC planning post PEG Subjective ROS Limited/Unobtainable: Yes Allergies: Coded Allergies: AMOXICILLIN (Verified Allergy, Mild, RASH, 09/30/16) PENICILLINS (Unverified Allergy, Unknown, 09/30/16) Objective Last 24 Hour Vital Signs Date Time Temp Pulse Resp B/P (MAP) Pulse Ox O2 Delivery O2 Flow Rate FiO2 12/04/16 11:56 97.7 96 16 95/52 100 Mechanical Ventilator 70 12/04/16 10:30 73 14 50 12/04/16 08:30 109 14 50 12/04/16 08:05 98.2 115 16 111/63 98 Mechanical Ventilator 50 12/04/16 08:00 106 12/04/16 08:00 60 12/04/16 06:55 112 14 50 12/04/16 05:55 110 14 50 12/04/16 04:00 98.4 104 14 86/69 96 Mechanical Ventilator 60 12/04/16 04:00 60 12/04/16 04:00 99 12/04/16 03:10 81 14 50 12/04/16 01:10 89 14 50 12/04/16 00:00 98.6 89 14 107/63 99 Mechanical Ventilator 60 12/03/16 23:20 92 14 50 12/03/16 21:10 97 15 50 12/03/16 20:00 98 12/03/16 20:00 97.9 95 16 92/52 98 Mechanical Ventilator 60 12/03/16 20:00 60 12/03/16 19:00 110 14 50 12/03/16 17:29 114 14 50 12/03/16 16:00 60 12/03/16 14:55 97 14 50 12/03/16 14:49 97 12/03/16 14:00 80 17 109/54 98 Mechanical Ventilator 60 12/03/16 13:00 81 17 101/54 98 Mechanical Ventilator 60 12/03/16 12:51 81 14 50 Laboratory Tests 12/04/16 05:50: White Blood Count 8.3, Red Blood Count 3.01L, Hemoglobin 9.2L, Hematocrit 30.0L , Mean Corpuscular Volume 100H, Mean Corpuscular Hemoglobin 30.6, Mean Corpuscular Hemoglobin Concent 30.6L, Red Cell Distribution Width 18.7H, Platelet Count 164, Mean Platelet Volume 6.5, Neutrophils (%) (Auto) 72.7, Lymphocytes (%) (Auto) 15.6L, Monocytes (%) (Auto) 9.6, Eosinophils (%) (Auto) 1.2, Basophils (%) (Auto) 0.9, Sodium Level 139, Potassium Level 3.9, Chloride Level 100, Carbon Dioxide Level 28, Anion Gap 11, Blood Urea Nitrogen 20H, Creatinine 3.3H, Estimat Glomerular Filtration Rate , Glucose Level 95, Calcium Level 8.6, Total Bilirubin 1.5H, Direct Bilirubin 0.8H, Aspartate Amino Transf ( AST/SGOT) 27, Alanine Aminotransferase (ALT/SGPT) < 6L, Alkaline Phosphatase 110 , Pro-B-Type Natriuretic Peptide 81071D, Total Protein 7.6, Albumin 2.1L, Globulin 5.5, Albumin/Globulin Ratio 0.4L Height (Feet): 5 Height (Inches): 3.00 Weight (Pounds): 165 General Appearance: no apparent distress Cardiovascular: tachycardia Respiratory/Chest: decreased breath sounds Abdomen: soft, other - PEG Edema: 2+ Arm (L), 2+ Arm (R), 2+ Leg (L), 2+ Leg (R), 2+ Pedal (L), 2+ Pedal ( R), 2+ Generalized Objective much less edematous COURTNEY LOPEZ Dec 04, 2016 12:36
[2016-12-04 16:00] VITALS: BP 93/55
[2016-12-04] MEDS ORDERED: Sterile Water Irrig 1000ml IRRIG ONE (16:35)
[2016-12-04 20:00] VITALS: BP 100/62
[2016-12-04] MEDS: Dyna-Hex 2% Top Sol 2oz TOPIC SCH (20:43)
--- NOTE | 2016-12-04 21:11 | General Progress Note ---
Assessment/Plan Assessment/Plan This is a 76-year-old, morbidly obese female, admitted with anasarca and cellulitis of the lower leg. The patient was admitted to the directr observation unit on the monitor with the following medical problems. now transfered to icu as of 11-14-16, co of pruritis 1. Anasarca. She appears to be markedly swollen. She will need diuresis. Place the patient on Lasix 20 mg intravenous for now q.12 hours. Cardiology and Pulmonary on the case. We will follow orders. Check laboratory studies daily. lasix drip was discontinued in am, HD started 2. Chronic hypercapnic respiratory failure. Continue with vent support per Pulmonary. will discuss with pulmonary regarding trach issues 3 anemia. s./p transfusion of PRBC Continue monitoring CBC daily. patient to start procrit per nephrology 4. Pulmonary hypertension. hold Eliquis 2.5 mg twice a day until trach is refitted 5. Chronic kidney disease. We will monitor BUN and creatinine. Gentle diuresis for now. Nephrology has been consulted. further workup per nephrology. avoid nephrotoxic agents HD to start soon 6. DVT prophylaxis. The patient is on Eliquis. The patient is Full 7. nutrition: patient didn't tolerate NGT placment, patient is now s/p PEG placement, tolerating tube feeding 8. Alkalosis: resolved 9. Generalized anxiety: ativna prn, counselled for 15min 10. constipation: prn enema, continue with colace and MiraLax had revesion of trach on 11-23-16 benadryl 25 mg iv q 6 prn itching tube feeding to start soon continue HD per nephrology trach revision done by Dr. Powell PEG to be placed tomorrow discussed with nursing staff HD per nephrology Subjective Date patient seen: Dec 04, 2016 Allergies: Coded Allergies: AMOXICILLIN (Verified Allergy, Mild, RASH, 09/30/16) PENICILLINS (Unverified Allergy, Unknown, 09/30/16) All Systems: reviewed and negative except above Subjective patient had HD 2.1 L today, doing better per nursing staff Objective Last 24 Hour Vital Signs Date Time Temp Pulse Resp B/P (MAP) Pulse Ox O2 Delivery O2 Flow Rate FiO2 12/04/16 19:50 66 14 50 12/04/16 16:45 77 14 50 12/04/16 16:00 60 12/04/16 16:00 72 12/04/16 16:00 98.1 91 16 93/55 100 Mechanical Ventilator 60 12/04/16 14:38 75 14 50 12/04/16 13:02 78 14 50 12/04/16 12:00 77 12/04/16 12:00 60 12/04/16 11:56 97.7 96 16 95/52 100 Mechanical Ventilator 70 12/04/16 10:30 73 14 50 12/04/16 08:30 109 14 50 12/04/16 08:05 98.2 115 16 111/63 98 Mechanical Ventilator 50 12/04/16 08:00 106 12/04/16 08:00 60 12/04/16 06:55 112 14 50 12/04/16 05:55 110 14 50 12/04/16 04:00 98.4 104 14 86/69 96 Mechanical Ventilator 60 12/04/16 04:00 60 12/04/16 04:00 99 12/04/16 03:10 81 14 50 12/04/16 01:10 89 14 50 12/04/16 00:00 98.6 89 14 107/63 99 Mechanical Ventilator 60 12/03/16 23:20 92 14 50 12/03/16 21:10 97 15 50 Intake and Output 12/04/16 12/05/16 19:00 07:00 Intake Total 570 ml Output Total 30 ml Balance 540 ml Free Water 90 ml Tube Feeding 480 ml Output Urine Total 30 ml # Bowel Movements 2 Laboratory Tests 12/04/16 05:50: White Blood Count 8.3, Red Blood Count 3.01L, Hemoglobin 9.2L, Hematocrit 30.0L , Mean Corpuscular Volume 100H, Mean Corpuscular Hemoglobin 30.6, Mean Corpuscular Hemoglobin Concent 30.6L, Red Cell Distribution Width 18.7H, Platelet Count 164, Mean Platelet Volume 6.5, Neutrophils (%) (Auto) 72.7, Lymphocytes (%) (Auto) 15.6L, Monocytes (%) (Auto) 9.6, Eosinophils (%) (Auto) 1.2, Basophils (%) (Auto) 0.9, Sodium Level 139, Potassium Level 3.9, Chloride Level 100, Carbon Dioxide Level 28, Anion Gap 11, Blood Urea Nitrogen 20H, Creatinine 3.3H, Estimat Glomerular Filtration Rate , Glucose Level 95, Calcium Level 8.6, Total Bilirubin 1.5H, Direct Bilirubin 0.8H, Aspartate Amino Transf ( AST/SGOT) 27, Alanine Aminotransferase (ALT/SGPT) < 6L, Alkaline Phosphatase 110 , Pro-B-Type Natriuretic Peptide 28601A, Total Protein 7.6, Albumin 2.1L, Globulin 5.5, Albumin/Globulin Ratio 0.4L Height (Feet): 5 Height (Inches): 3.00 Weight (Pounds): 165 General Appearance: morbidly obese EENT: PERRL/EOMI, pharynx normal Neck: non-tender, supple Cardiovascular: normal rate, regular rhythm, no gallop/murmur, no JVD Respiratory/Chest: decreased breath sounds Abdomen: distended Extremities: swelling Edema: 3+ Arm (L), 3+ Arm (R), 3+ Leg (L), 3+ Leg (R), 3+ Pedal (L), 3+ Pedal ( R), 3+ Generalized Edema: severe edema Neurologic: accountant controller II-XII grossly normal, oriented x 3, responsive Skin: rash Lymphatic: normal anterior cervical (L), normal anterior cervical (R), normal posterior cervical (L), normal posterior cervical (R), normal submandibular (L) , normal submandibular (R), normal supraclavicular (L), normal supraclavicular ( R), normal axillary (L), normal axillary (R), normal inguinal (L), normal inguinal (R), normal other Manny Nolan MD Dec 04, 2016 21:11
[2016-12-05] VITALS: BP 106/78
[2016-12-05 04:00] VITALS: BP 107/78
[2016-12-05] MEDS: Midodrine 10mg tab ORAL SCH ×2 (05:06→13:50)
[2016-12-05 06:13] LABS: BASOPHILS % (AUTO) 0.7 % (0.0-2.0); EOSINOPHILS % (AUTO) 1.3 % (0.0-3.0); LYMPHOCYTES % (AUTO) 13.6 % (20.0-45.0); MEAN CORPUSCULAR HEMOGLOBIN 32.8 PG (27.0-31.0); MEAN CORPUSCULAR HGB CONC 32.7 G/DL (32.0-36.0); MEAN CORPUSCULAR VOLUME 100 FL (80-99); MEAN PLATELET VOLUME 6.9 FL (6.5-10.1); MONOCYTES % (AUTO) 7.8 % (1.0-10.0); NEUTROPHILS % (AUTO) 76.6 % (45.0-75.0); PLATELET COUNT 163 K/UL (150-450); RED CELL DISTRIBUTION WIDTH 19.1 % (11.6-14.8)
[2016-12-05 06:48] LABS: ALBUMIN/GLOBULIN RATIO 0.4 (1.0-2.7); ANION GAP 8 mmol/L (5-15); ASPARTATE AMINO TRANSFERASE 21 U/L (15-37); CALCIUM 8.4 MG/DL (8.5-10.1); CARBON DIOXIDE 29 MMOL/L (21-32); CHLORIDE 101 MMOL/L (98-107); CREATININE 3.6 MG/DL (0.55-1.30); MAGNESIUM 1.6 MG/DL (1.8-2.4); POTASSIUM 4.1 MMOL/L (3.5-5.1); SODIUM 138 MMOL/L (136-145); TOTAL PROTEIN 7.2 G/DL (6.4-8.2)
--- NOTE | 2016-12-05 07:00 | General Progress Note ---
Assessment/Plan Problem List: (1) Positive occult stool blood test ICD Codes: R19.5 - Other fecal abnormalities SNOMED: 09968138, 501162211 (2) Morbid obesity ICD Codes: E66.01 - Morbid (severe) obesity due to excess calories SNOMED: 097579628, 32929588956653 (3) Atrial fibrillation ICD Codes: I48.91 - Unspecified atrial fibrillation SNOMED: 18686925 (4) CHF (congestive heart failure) ICD Codes: I50.9 - Heart failure, unspecified SNOMED: 64005216 (5) PEG (percutaneous endoscopic gastrostomy) adjustment/replacement/removal ICD Codes: Z43.1 - Encounter for attention to gastrostomy SNOMED: 237916743, 971619650 Assessment/Plan s/p PEG GTF at 40 cc /o and tolerated fu labs Subjective ROS Limited/Unobtainable: Yes Allergies: Coded Allergies: AMOXICILLIN (Verified Allergy, Mild, RASH, 09/30/16) PENICILLINS (Unverified Allergy, Unknown, 09/30/16) Subjective no event Objective Last 24 Hour Vital Signs Date Time Temp Pulse Resp B/P (MAP) Pulse Ox O2 Delivery O2 Flow Rate FiO2 12/05/16 06:40 73 14 50 12/05/16 05:30 70 14 50 12/05/16 04:00 60 12/05/16 04:00 64 12/05/16 04:00 98.3 75 16 107/78 100 Mechanical Ventilator 60 12/05/16 03:30 69 14 50 12/05/16 01:27 92 14 50 12/05/16 00:00 98.4 79 16 106/78 100 Mechanical Ventilator 60 12/05/16 00:00 69 12/05/16 00:00 60 12/04/16 23:47 68 20 12/04/16 23:15 64 14 50 12/04/16 21:11 68 14 50 12/04/16 20:00 60 12/04/16 20:00 70 12/04/16 20:00 98.6 72 16 100/62 100 Mechanical Ventilator 60 12/04/16 19:50 66 14 50 12/04/16 16:45 77 14 50 12/04/16 16:00 60 12/04/16 16:00 72 12/04/16 16:00 98.1 91 16 93/55 100 Mechanical Ventilator 60 12/04/16 14:38 75 14 50 12/04/16 13:02 78 14 50 12/04/16 12:00 77 12/04/16 12:00 60 12/04/16 11:56 97.7 96 16 95/52 100 Mechanical Ventilator 70 12/04/16 10:30 73 14 50 12/04/16 08:30 109 14 50 12/04/16 08:05 98.2 115 16 111/63 98 Mechanical Ventilator 50 12/04/16 08:00 106 12/04/16 08:00 60 Laboratory Tests 12/05/16 06:00: White Blood Count 8.0, Red Blood Count 2.80L, Hemoglobin 9.2L, Hematocrit 28.0L , Mean Corpuscular Volume 100H, Mean Corpuscular Hemoglobin 32.8H, Mean Corpuscular Hemoglobin Concent 32.7, Red Cell Distribution Width 19.1H, Platelet Count 163, Mean Platelet Volume 6.9, Neutrophils (%) (Auto) 76.6H, Lymphocytes (%) (Auto) 13.6L, Monocytes (%) (Auto) 7.8, Eosinophils (%) (Auto) 1.3, Basophils (%) (Auto) 0.7, Sodium Level [Pending], Potassium Level [Pending] , Chloride Level [Pending], Carbon Dioxide Level [Pending], Blood Urea Nitrogen [Pending], Creatinine [Pending], Estimat Glomerular Filtration Rate [Pending], Glucose Level [Pending], Calcium Level [Pending], Phosphorus Level [Pending], Magnesium Level [Pending], Total Bilirubin [Pending], Aspartate Amino Transf ( AST/SGOT) [Pending], Alanine Aminotransferase (ALT/SGPT) [Pending], Alkaline Phosphatase [Pending], Total Protein [Pending], Albumin [Pending], Globulin [ Pending] Height (Feet): 5 Height (Inches): 3.00 Weight (Pounds): 165 General Appearance: no apparent distress EENT: normal ENT inspection Neck: supple Cardiovascular: normal rate Respiratory/Chest: decreased breath sounds Abdomen: normal bowel sounds, non tender, soft Extremities: non-tender RUDDY RODRIGUEZ Dec 05, 2016 07:00
--- NOTE | 2016-12-05 07:02 | General Progress Note ---
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 Anemia secondary to chronic disease. Continue to closely monitor. Work up reviewed --> s/p transfusion. watch counts, transfuse if hgb is below 8 # Positive occult blood. r/o gi bleed. gi following #. Anemia of kidney disease. Nephrology service following #. PEG tube placement #. Chronic ventilator dependent #. Permanent atrial fibrillation. #. Cellulitis and chronic lymphedema of the bilateral lower extremities. #. Congestive heart failure. Subjective Date patient seen: Dec 04, 2016 ROS Limited/Unobtainable: Yes Allergies: Coded Allergies: AMOXICILLIN (Verified Allergy, Mild, RASH, 09/30/16) PENICILLINS (Unverified Allergy, Unknown, 09/30/16) Subjective doing better, s/p HD Objective Last 24 Hour Vital Signs Date Time Temp Pulse Resp B/P (MAP) Pulse Ox O2 Delivery O2 Flow Rate FiO2 12/05/16 06:40 73 14 50 12/05/16 05:30 70 14 50 12/05/16 04:00 60 12/05/16 04:00 64 12/05/16 04:00 98.3 75 16 107/78 100 Mechanical Ventilator 60 12/05/16 03:30 69 14 50 12/05/16 01:27 92 14 50 12/05/16 00:00 98.4 79 16 106/78 100 Mechanical Ventilator 60 12/05/16 00:00 69 12/05/16 00:00 60 12/04/16 23:47 68 20 12/04/16 23:15 64 14 50 12/04/16 21:11 68 14 50 12/04/16 20:00 60 12/04/16 20:00 70 12/04/16 20:00 98.6 72 16 100/62 100 Mechanical Ventilator 60 12/04/16 19:50 66 14 50 12/04/16 16:45 77 14 50 12/04/16 16:00 60 12/04/16 16:00 72 12/04/16 16:00 98.1 91 16 93/55 100 Mechanical Ventilator 60 12/04/16 14:38 75 14 50 12/04/16 13:02 78 14 50 12/04/16 12:00 77 12/04/16 12:00 60 12/04/16 11:56 97.7 96 16 95/52 100 Mechanical Ventilator 70 12/04/16 10:30 73 14 50 12/04/16 08:30 109 14 50 12/04/16 08:05 98.2 115 16 111/63 98 Mechanical Ventilator 50 12/04/16 08:00 106 12/04/16 08:00 60 Laboratory Tests 12/05/16 06:00: White Blood Count 8.0, Red Blood Count 2.80L, Hemoglobin 9.2L, Hematocrit 28.0L , Mean Corpuscular Volume 100H, Mean Corpuscular Hemoglobin 32.8H, Mean Corpuscular Hemoglobin Concent 32.7, Red Cell Distribution Width 19.1H, Platelet Count 163, Mean Platelet Volume 6.9, Neutrophils (%) (Auto) 76.6H, Lymphocytes (%) (Auto) 13.6L, Monocytes (%) (Auto) 7.8, Eosinophils (%) (Auto) 1.3, Basophils (%) (Auto) 0.7, Sodium Level [Pending], Potassium Level [Pending] , Chloride Level [Pending], Carbon Dioxide Level [Pending], Blood Urea Nitrogen [Pending], Creatinine [Pending], Estimat Glomerular Filtration Rate [Pending], Glucose Level [Pending], Calcium Level [Pending], Phosphorus Level [Pending], Magnesium Level [Pending], Total Bilirubin [Pending], Aspartate Amino Transf ( AST/SGOT) [Pending], Alanine Aminotransferase (ALT/SGPT) [Pending], Alkaline Phosphatase [Pending], Total Protein [Pending], Albumin [Pending], Globulin [ Pending] Height (Feet): 5 Height (Inches): 3.00 Weight (Pounds): 165 General Appearance: no apparent distress Neck: normal alignment Abdomen: non tender Neurologic: share holder II-XII grossly normal Skin: normal pigmentation, warm/dry Serafin Haines Dec 05, 2016 07:02
[2016-12-05 07:11] LABS: ALANINE AMINOTRANSFERASE < 6 U/L (12-78)
[2016-12-05 07:20] LABS: BILIRUBIN,DIRECT 0.8 MG/DL (0.0-0.3)
[2016-12-05 08:24] VITALS: BP_SYST 108; BP_SYST 92; BP_DIAS 28; BP_DIAS 32
--- NOTE | 2016-12-05 09:05 | Pulmonology Progress Note ---
Assessment/Plan Problems: (1) Chronic respiratory failure (2) Anasarca (3) ATN (acute tubular necrosis) (4) Anemia (5) Peripheral edema (6) Pickwickian syndrome (7) MINA (obstructive sleep apnea) (8) Morbid obesity Respiratory: monitor respiratory rate, adjust FIO2, CXR Cardiac: continue to monitor HR/BP Renal: F/U I&O, check electrolytes Infectious Disease: check cultures, other - off abx Gastrointestinal: continue feedings/current rate Endocrine: monitor blood sugar Hematologic: monitor H/H Neurologic: PRN Ativan Affect: PRN ativan Prophylaxis: Protonix Notes Reviewed: software quality assurance analyst, renal 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: nurses, consultants, comp field case manager Subjective ROS Limited/Unobtainable: No Constitutional: Reports: no symptoms Respiratory: Reports: no symptoms Allergies: Coded Allergies: AMOXICILLIN (Verified Allergy, Mild, RASH, 09/30/16) PENICILLINS (Unverified Allergy, Unknown, 09/30/16) Objective Last 24 Hour Vital Signs Date Time Temp Pulse Resp B/P (MAP) Pulse Ox O2 Delivery O2 Flow Rate FiO2 12/05/16 08:54 76 14 50 12/05/16 08:53 66 12/05/16 08:24 97.7 68 14 92/32 100 Mechanical Ventilator 60 12/05/16 06:40 73 14 50 12/05/16 05:30 70 14 50 12/05/16 04:00 60 12/05/16 04:00 64 12/05/16 04:00 98.3 75 16 107/78 100 Mechanical Ventilator 60 12/05/16 03:30 69 14 50 12/05/16 01:27 92 14 50 12/05/16 00:00 98.4 79 16 106/78 100 Mechanical Ventilator 60 12/05/16 00:00 69 12/05/16 00:00 60 12/04/16 23:47 68 20 12/04/16 23:15 64 14 50 12/04/16 21:11 68 14 50 12/04/16 20:00 60 12/04/16 20:00 70 12/04/16 20:00 98.6 72 16 100/62 100 Mechanical Ventilator 60 12/04/16 19:50 66 14 50 12/04/16 16:45 77 14 50 12/04/16 16:00 60 12/04/16 16:00 72 12/04/16 16:00 98.1 91 16 93/55 100 Mechanical Ventilator 60 12/04/16 14:38 75 14 50 12/04/16 13:02 78 14 50 12/04/16 12:00 77 12/04/16 12:00 60 12/04/16 11:56 97.7 96 16 95/52 100 Mechanical Ventilator 70 12/04/16 10:30 73 14 50 General Appearance: WD/WN HEENT: normocephalic, atraumatic Respiratory/Chest: chest wall non-tender, lungs clear Cardiovascular: normal peripheral pulses, normal rate Abdomen: normal bowel sounds, soft, non tender Genitourinary: normal external genitalia Extremities: no clubbing Skin: no ulcers Neurologic/Psychiatric: no motor/sensory deficits Laboratory Tests 12/05/16 06:00: White Blood Count 8.0, Red Blood Count 2.80L, Hemoglobin 9.2L, Hematocrit 28.0L , Mean Corpuscular Volume 100H, Mean Corpuscular Hemoglobin 32.8H, Mean Corpuscular Hemoglobin Concent 32.7, Red Cell Distribution Width 19.1H, Platelet Count 163, Mean Platelet Volume 6.9, Neutrophils (%) (Auto) 76.6H, Lymphocytes (%) (Auto) 13.6L, Monocytes (%) (Auto) 7.8, Eosinophils (%) (Auto) 1.3, Basophils (%) (Auto) 0.7, Sodium Level 138, Potassium Level 4.1, Chloride Level 101, Carbon Dioxide Level 29, Anion Gap 8, Blood Urea Nitrogen 25H, Creatinine 3.6H, Estimat Glomerular Filtration Rate , Glucose Level 150H, Calcium Level 8.4L, Phosphorus Level 2.0L, Magnesium Level 1.6L, Total Bilirubin 1.4H, Direct Bilirubin 0.8H, Aspartate Amino Transf (AST/SGOT) 21, Alanine Aminotransferase (ALT/SGPT) < 6L, Alkaline Phosphatase 106, Total Protein 7.2, Albumin 1.9L, Globulin 5.3, Albumin/Globulin Ratio 0.4L Current Medications Medications (Trade) Dose Ordered Sig/Kalyn Route PRN Reason Start Time Stop Time Status Last Admin Dose Admin Acetaminophen (Tylenol) 650 mg Q4H PRN ORAL Mild Pain/Temp > 100.5 12/03/16 15:00 12/12/16 14:59 Allopurinol (Zyloprim) 200 mg DAILY ORAL 12/04/16 09:00 01/02/17 08:59 12/04/16 09:17 Chlorhexidine Gluconate (Marni-Hex 2%) 1 applic Q24H TOPIC 12/03/16 20:00 12/27/16 19:59 12/04/16 20:43 Diphenhydramine HCl (Benadryl) 25 mg Q6H PRN IVP Itching 12/03/16 15:00 12/19/16 14:59 Docusate Sodium (Colace) 100 mg TWICE A DAY GT 12/04/16 09:00 01/03/17 08:59 12/04/16 17:21 Epoetin Santos (Procrit (for non ESRD use)) 10,000 units TUE- SUBQ 12/03/16 21:00 12/17/16 20:59 12/03/16 21:22 Folic Acid (Folate) 1 mg DAILY ORAL 12/04/16 09:00 12/12/16 08:59 12/04/16 09:17 Gabapentin (Neurontin) 600 mg BID ORAL 12/03/16 18:00 12/14/16 08:59 12/04/16 17:21 Lorazepam (Ativan 2mg/ml 1ml) 2 mg Q2H PRN IV For Anxiety 12/03/16 15:15 12/06/16 13:14 12/04/16 04:49 Midodrine (Pro-Amatine) 10 mg EVERY 8 HOURS ORAL 12/03/16 22:00 12/21/16 12:59 12/05/16 05:06 Pantoprazole (Protonix) 40 mg DAILY IVP 12/04/16 09:00 12/12/16 08:59 12/04/16 09:17 Polyethylene Glycol (Miralax) 17 gm DAILY ORAL 12/04/16 09:00 12/12/16 08:59 12/04/16 09:16 Pravastatin Sodium (Pravachol) 20 mg BEDTIME ORAL 12/03/16 21:00 12/12/16 20:59 12/04/16 20:43 Sildenafil Citrate (Revatio) 20 mg THREE TIMES A DAY ORAL 12/03/16 18:00 12/12/16 08:59 12/04/16 17:21 ARASH MIRANDA Dec 05, 2016 09:05
[2016-12-05] MEDS: Docusate 100mg/10ml Liq GT SCH ×2 (09:29→17:54)
[2016-12-05] MEDS: Revatio 20mg tab ORAL SCH ×3 (09:29→17:54)
[2016-12-05] MEDS: Miralax 17gm pkt ORAL SCH (09:29)
[2016-12-05] MEDS: Allopurinol 100mg Tab ORAL SCH (09:30)
[2016-12-05] MEDS: Pantoprazole Inj IVP SCH (09:30)
[2016-12-05] MEDS ORDERED: Phospha 250 Neutral tab GT ONE (11:15)
[2016-12-05 11:23] VITALS: BP 105/53
--- NOTE | 2016-12-05 12:14 | General Progress Note ---
Assessment/Plan Status: stable Assessment/Plan Cellulitis BLE and R arm- in the setting of chronic leg edema- r/o DVT Anasarca/ bilateral leg lymphedema CKD- and acute renal failure - Acute respiratory failure s/p Trach Obese COPD , CHF, Diastolic MINA UTI Anemia GI Bleed, GI bleeding At Fib Pulm HTN h/o Low B12 plan: Now has PEG last HD t 12/01, next 12/03next 12/06 K supplement as needed on EPOGEN 24 H urine collection in process: CrCl 6 Monitor renal parameters- optimize cardiac and pulm status avoid nephrotoxics- pulmonary support- transfuse as needed ? DC planning post PEG Subjective ROS Limited/Unobtainable: No Constitutional: Reports: malaise Allergies: Coded Allergies: AMOXICILLIN (Verified Allergy, Mild, RASH, 09/30/16) PENICILLINS (Unverified Allergy, Unknown, 09/30/16) Objective Last 24 Hour Vital Signs Date Time Temp Pulse Resp B/P (MAP) Pulse Ox O2 Delivery O2 Flow Rate FiO2 12/05/16 11:23 97.9 89 14 105/53 100 Mechanical Ventilator 60 12/05/16 11:16 80 15 50 12/05/16 08:54 76 14 50 12/05/16 08:53 66 12/05/16 08:24 97.7 68 14 92/32 100 Mechanical Ventilator 60 12/05/16 06:40 73 14 50 12/05/16 05:30 70 14 50 12/05/16 04:00 60 12/05/16 04:00 64 12/05/16 04:00 98.3 75 16 107/78 100 Mechanical Ventilator 60 12/05/16 03:30 69 14 50 12/05/16 01:27 92 14 50 12/05/16 00:00 98.4 79 16 106/78 100 Mechanical Ventilator 60 12/05/16 00:00 69 12/05/16 00:00 60 12/04/16 23:47 68 20 12/04/16 23:15 64 14 50 12/04/16 21:11 68 14 50 12/04/16 20:00 60 12/04/16 20:00 70 12/04/16 20:00 98.6 72 16 100/62 100 Mechanical Ventilator 60 12/04/16 19:50 66 14 50 12/04/16 16:45 77 14 50 12/04/16 16:00 60 12/04/16 16:00 72 12/04/16 16:00 98.1 91 16 93/55 100 Mechanical Ventilator 60 12/04/16 14:38 75 14 50 12/04/16 13:02 78 14 50 Intake and Output 12/05/16 12/06/16 19:00 07:00 Intake Total 220 ml Balance 220 ml Free Water 50 ml Tube Feeding 120 ml Other 50 ml Laboratory Tests 12/05/16 06:00: White Blood Count 8.0, Red Blood Count 2.80L, Hemoglobin 9.2L, Hematocrit 28.0L , Mean Corpuscular Volume 100H, Mean Corpuscular Hemoglobin 32.8H, Mean Corpuscular Hemoglobin Concent 32.7, Red Cell Distribution Width 19.1H, Platelet Count 163, Mean Platelet Volume 6.9, Neutrophils (%) (Auto) 76.6H, Lymphocytes (%) (Auto) 13.6L, Monocytes (%) (Auto) 7.8, Eosinophils (%) (Auto) 1.3, Basophils (%) (Auto) 0.7, Sodium Level 138, Potassium Level 4.1, Chloride Level 101, Carbon Dioxide Level 29, Anion Gap 8, Blood Urea Nitrogen 25H, Creatinine 3.6H, Estimat Glomerular Filtration Rate , Glucose Level 150H, Calcium Level 8.4L, Phosphorus Level 2.0L, Magnesium Level 1.6L, Total Bilirubin 1.4H, Direct Bilirubin 0.8H, Aspartate Amino Transf (AST/SGOT) 21, Alanine Aminotransferase (ALT/SGPT) < 6L, Alkaline Phosphatase 106, Total Protein 7.2, Albumin 1.9L, Globulin 5.3, Albumin/Globulin Ratio 0.4L Height (Feet): 5 Height (Inches): 3.00 Weight (Pounds): 165 General Appearance: no apparent distress EENT: other - on vent Cardiovascular: normal rate Respiratory/Chest: decreased breath sounds Abdomen: distended Objective much less edematous COURTNEY LOPEZ Dec 05, 2016 12:14
[2016-12-05 16:20] VITALS: BP 93/53
--- NOTE | 2016-12-05 17:11 | Cardiology Progress Note ---
Assessment/Plan Assessment/Plan 1. Permanent atrial fibrillation. 2. Chronic respiratory failure, on a mechanical ventilator. 3. Cor pulmonale. 4. Pulmonary hypertension. 5. Acute renal failure, now on dialysis. 6. Anemia. 7. Significant edema. 8. Hypoalbuminemia. 9. stool ob + bp borderline has edema still on vent remain in afib stool now ob + no anticoagulation for now Subjective Cardiovascular: Denies: chest pain Respiratory: Reports: cough, sputum Gastrointestinal/Abdominal: Denies: abdominal pain Genitourinary: Denies: burning Subjective on the vent awake Objective Last 24 Hour Vital Signs Date Time Temp Pulse Resp B/P (MAP) Pulse Ox O2 Delivery O2 Flow Rate FiO2 12/05/16 16:50 74 14 50 12/05/16 16:20 97.9 92 15 93/53 100 Mechanical Ventilator 60 12/05/16 16:00 60 12/05/16 15:16 78 14 50 12/05/16 12:54 74 14 50 12/05/16 12:00 102 12/05/16 12:00 60 12/05/16 11:23 97.9 89 14 105/53 100 Mechanical Ventilator 60 12/05/16 11:16 80 15 50 12/05/16 08:54 76 14 50 12/05/16 08:53 66 12/05/16 08:24 97.7 68 14 92/32 100 Mechanical Ventilator 60 12/05/16 08:00 60 12/05/16 06:40 73 14 50 12/05/16 05:30 70 14 50 12/05/16 04:00 60 12/05/16 04:00 64 12/05/16 04:00 98.3 75 16 107/78 100 Mechanical Ventilator 60 12/05/16 03:30 69 14 50 12/05/16 01:27 92 14 50 12/05/16 00:00 98.4 79 16 106/78 100 Mechanical Ventilator 60 12/05/16 00:00 69 12/05/16 00:00 60 12/04/16 23:47 68 20 12/04/16 23:15 64 14 50 12/04/16 21:11 68 14 50 12/04/16 20:00 60 12/04/16 20:00 70 12/04/16 20:00 98.6 72 16 100/62 100 Mechanical Ventilator 60 12/04/16 19:50 66 14 50 General Appearance: no apparent distress Neck: supple Cardiovascular: normal rate, irregularly irregular Respiratory/Chest: rhonchi - bilaterally Abdomen: normal bowel sounds, non tender, soft Extremities: no swelling Intake and Output 12/05/16 12/06/16 19:00 07:00 Intake Total 690 ml Balance 690 ml Free Water 50 ml IV Total 200 ml Tube Feeding 360 ml Other 80 ml # Bowel Movements 2 Laboratory Tests Test 12/05/16 06:00 White Blood Count 8.0 K/UL (4.8-10.8) Red Blood Count 2.80 M/UL (4.20-5.40) L Hemoglobin 9.2 G/DL (12.0-16.0) L Hematocrit 28.0 % (37.0-47.0) L Mean Corpuscular Volume 100 FL (80-99) H Mean Corpuscular Hemoglobin 32.8 PG (27.0-31.0) H Mean Corpuscular Hemoglobin Concent 32.7 G/DL (32.0-36.0) Red Cell Distribution Width 19.1 % (11.6-14.8) H Platelet Count 163 K/UL (150-450) Mean Platelet Volume 6.9 FL (6.5-10.1) Neutrophils (%) (Auto) 76.6 % (45.0-75.0) H Lymphocytes (%) (Auto) 13.6 % (20.0-45.0) L Monocytes (%) (Auto) 7.8 % (1.0-10.0) Eosinophils (%) (Auto) 1.3 % (0.0-3.0) Basophils (%) (Auto) 0.7 % (0.0-2.0) Sodium Level 138 MMOL/L (136-145) Potassium Level 4.1 MMOL/L (3.5-5.1) Chloride Level 101 MMOL/L (98-107) Carbon Dioxide Level 29 MMOL/L (21-32) Anion Gap 8 mmol/L (5-15) Blood Urea Nitrogen 25 mg/dL (7-18) H Creatinine 3.6 MG/DL (0.55-1.30) H Estimat Glomerular Filtration Rate mL/min (>60) Glucose Level 150 MG/DL (74-106) H Calcium Level 8.4 MG/DL (8.5-10.1) L Phosphorus Level 2.0 MG/DL (2.5-4.9) L Magnesium Level 1.6 MG/DL (1.8-2.4) L Total Bilirubin 1.4 MG/DL (0.2-1.0) H Direct Bilirubin 0.8 MG/DL (0.0-0.3) H Aspartate Amino Transf (AST/SGOT) 21 U/L (15-37) Alanine Aminotransferase (ALT/SGPT) < 6 U/L (12-78) L Alkaline Phosphatase 106 U/L (46-116) Total Protein 7.2 G/DL (6.4-8.2) Albumin 1.9 G/DL (3.4-5.0) L Globulin 5.3 g/dL Albumin/Globulin Ratio 0.4 (1.0-2.7) L BRIANA TELLES Dec 05, 2016 17:11
--- NOTE | 2016-12-05 19:14 | General Progress Note ---
Assessment/Plan Assessment/Plan ASSESSMENT/RECS: # Coagulopathy 2/2 liver disease, have ordered abdominal us #. Anemia secondary to chronic disease. Continue to closely monitor. Work up reviewed --> s/p transfusion. watch counts, transfuse if hgb is below 8 # Positive occult blood. r/o gi bleed. gi following #. Anemia of kidney disease. Nephrology service following #. PEG tube placement #. Chronic ventilator dependent #. Permanent atrial fibrillation. #. Cellulitis and chronic lymphedema of the bilateral lower extremities. #. Congestive heart failure. Subjective ROS Limited/Unobtainable: Yes Allergies: Coded Allergies: AMOXICILLIN (Verified Allergy, Mild, RASH, 09/30/16) PENICILLINS (Unverified Allergy, Unknown, 09/30/16) Subjective afebrile, no bleeding Objective Last 24 Hour Vital Signs Date Time Temp Pulse Resp B/P (MAP) Pulse Ox O2 Delivery O2 Flow Rate FiO2 12/05/16 16:50 74 14 50 12/05/16 16:20 97.9 92 15 93/53 100 Mechanical Ventilator 60 12/05/16 16:00 77 12/05/16 16:00 60 12/05/16 15:16 78 14 50 12/05/16 12:54 74 14 50 12/05/16 12:00 102 12/05/16 12:00 60 12/05/16 11:23 97.9 89 14 105/53 100 Mechanical Ventilator 60 12/05/16 11:16 80 15 50 12/05/16 08:54 76 14 50 12/05/16 08:53 66 12/05/16 08:24 97.7 68 14 92/32 100 Mechanical Ventilator 60 12/05/16 08:00 60 12/05/16 06:40 73 14 50 12/05/16 05:30 70 14 50 12/05/16 04:00 60 12/05/16 04:00 64 12/05/16 04:00 98.3 75 16 107/78 100 Mechanical Ventilator 60 12/05/16 03:30 69 14 50 12/05/16 01:27 92 14 50 12/05/16 00:00 98.4 79 16 106/78 100 Mechanical Ventilator 60 12/05/16 00:00 69 12/05/16 00:00 60 12/04/16 23:47 68 20 12/04/16 23:15 64 14 50 12/04/16 21:11 68 14 50 12/04/16 20:00 60 12/04/16 20:00 70 12/04/16 20:00 98.6 72 16 100/62 100 Mechanical Ventilator 60 12/04/16 19:50 66 14 50 Intake and Output 12/05/16 12/06/16 19:00 07:00 Intake Total 690 ml Balance 690 ml Free Water 50 ml IV Total 200 ml Tube Feeding 360 ml Other 80 ml # Bowel Movements 2 Laboratory Tests 12/05/16 06:00: White Blood Count 8.0, Red Blood Count 2.80L, Hemoglobin 9.2L, Hematocrit 28.0L , Mean Corpuscular Volume 100H, Mean Corpuscular Hemoglobin 32.8H, Mean Corpuscular Hemoglobin Concent 32.7, Red Cell Distribution Width 19.1H, Platelet Count 163, Mean Platelet Volume 6.9, Neutrophils (%) (Auto) 76.6H, Lymphocytes (%) (Auto) 13.6L, Monocytes (%) (Auto) 7.8, Eosinophils (%) (Auto) 1.3, Basophils (%) (Auto) 0.7, Sodium Level 138, Potassium Level 4.1, Chloride Level 101, Carbon Dioxide Level 29, Anion Gap 8, Blood Urea Nitrogen 25H, Creatinine 3.6H, Estimat Glomerular Filtration Rate , Glucose Level 150H, Calcium Level 8.4L, Phosphorus Level 2.0L, Magnesium Level 1.6L, Total Bilirubin 1.4H, Direct Bilirubin 0.8H, Aspartate Amino Transf (AST/SGOT) 21, Alanine Aminotransferase (ALT/SGPT) < 6L, Alkaline Phosphatase 106, Total Protein 7.2, Albumin 1.9L, Globulin 5.3, Albumin/Globulin Ratio 0.4L Height (Feet): 5 Height (Inches): 3.00 Weight (Pounds): 165 General Appearance: no apparent distress EENT: normal ENT inspection Neck: normal alignment Respiratory/Chest: decreased breath sounds Abdomen: non tender, soft Edema: mild edema Serafin Haines Dec 05, 2016 19:14
[2016-12-05 20:00] VITALS: BP 91/55
[2016-12-05] MEDS: Dyna-Hex 2% Top Sol 2oz TOPIC SCH (20:15)
[2016-12-05] MEDS: Midodrine 10mg tab GT SCH (21:33)
--- NOTE | 2016-12-05 22:21 | General Progress Note ---
Assessment/Plan Assessment/Plan This is a 76-year-old, morbidly obese female, admitted with anasarca and cellulitis of the lower leg. The patient was admitted to the directr observation unit on the monitor with the following medical problems. now transfered to icu as of 11-14-16, co of pruritis 1. Anasarca. She appears to be markedly swollen. She will need diuresis. Place the patient on Lasix 20 mg intravenous for now q.12 hours. Cardiology and Pulmonary on the case. We will follow orders. Check laboratory studies daily. Lasix drip was discontinued in am, HD started 2. Chronic hypercapnic respiratory failure. Continue with vent support per Pulmonary. will discuss with pulmonary regarding trach issues 3 anemia. s./p transfusion of PRBC Continue monitoring CBC daily. patient to start Procrit per nephrology 4. Pulmonary hypertension. hold Eliquis 2.5 mg twice a day until trach is refitted 5. Chronic kidney disease. We will monitor BUN and creatinine. Gentle diuresis for now. Nephrology has been consulted. further workup per nephrology. avoid nephrotoxic agents HD to start soon 6. DVT prophylaxis. The patient is on Eliquis. The patient is Full 7. nutrition: patient didn't tolerate NGT placement, patient is now s/p PEG placement, tolerating tube feeding 8. Alkalosis: resolved 9. Generalized anxiety: Ativan prn, counselled for 15min 10. constipation: prn enema, continue with Colace and MiraLAX had revision of trach on 11-23-16 Benadryl 25 mg iv q 6 prn itching tolerating tube feeding continue HD per nephrology trach revision done by Dr. Powell discussed with nursing staff HD per nephrology Subjective Date patient seen: Dec 05, 2016 ROS Limited/Unobtainable: Yes Allergies: Coded Allergies: AMOXICILLIN (Verified Allergy, Mild, RASH, 09/30/16) PENICILLINS (Unverified Allergy, Unknown, 09/30/16) All Systems: reviewed and negative except above Subjective patient continues to have episodes of cyanosis appears to be positional Objective Last 24 Hour Vital Signs Date Time Temp Pulse Resp B/P (MAP) Pulse Ox O2 Delivery O2 Flow Rate FiO2 12/05/16 21:16 88 17 50 12/05/16 20:00 60 12/05/16 20:00 71 12/05/16 20:00 97.0 66 14 91/55 100 Mechanical Ventilator 60 12/05/16 19:19 67 14 50 12/05/16 16:50 74 14 50 12/05/16 16:20 97.9 92 15 93/53 100 Mechanical Ventilator 60 12/05/16 16:00 77 12/05/16 16:00 60 12/05/16 15:16 78 14 50 12/05/16 12:54 74 14 50 12/05/16 12:00 102 12/05/16 12:00 60 12/05/16 11:23 97.9 89 14 105/53 100 Mechanical Ventilator 60 12/05/16 11:16 80 15 50 12/05/16 08:54 76 14 50 12/05/16 08:53 66 12/05/16 08:24 97.7 68 14 92/32 100 Mechanical Ventilator 60 12/05/16 08:00 60 12/05/16 06:40 73 14 50 12/05/16 05:30 70 14 50 12/05/16 04:00 60 12/05/16 04:00 64 12/05/16 04:00 98.3 75 16 107/78 100 Mechanical Ventilator 60 12/05/16 03:30 69 14 50 12/05/16 01:27 92 14 50 12/05/16 00:00 98.4 79 16 106/78 100 Mechanical Ventilator 60 12/05/16 00:00 69 12/05/16 00:00 60 12/04/16 23:47 68 20 12/04/16 23:15 64 14 50 Intake and Output 12/05/16 12/06/16 19:00 07:00 Intake Total 890 ml Output Total 0 ml Balance 890 ml Free Water 100 ml IV Total 200 ml Tube Feeding 480 ml Other 110 ml Output Urine Total 0 ml # Bowel Movements 2 Laboratory Tests 12/05/16 06:00: White Blood Count 8.0, Red Blood Count 2.80L, Hemoglobin 9.2L, Hematocrit 28.0L , Mean Corpuscular Volume 100H, Mean Corpuscular Hemoglobin 32.8H, Mean Corpuscular Hemoglobin Concent 32.7, Red Cell Distribution Width 19.1H, Platelet Count 163, Mean Platelet Volume 6.9, Neutrophils (%) (Auto) 76.6H, Lymphocytes (%) (Auto) 13.6L, Monocytes (%) (Auto) 7.8, Eosinophils (%) (Auto) 1.3, Basophils (%) (Auto) 0.7, Sodium Level 138, Potassium Level 4.1, Chloride Level 101, Carbon Dioxide Level 29, Anion Gap 8, Blood Urea Nitrogen 25H, Creatinine 3.6H, Estimat Glomerular Filtration Rate , Glucose Level 150H, Calcium Level 8.4L, Phosphorus Level 2.0L, Magnesium Level 1.6L, Total Bilirubin 1.4H, Direct Bilirubin 0.8H, Aspartate Amino Transf (AST/SGOT) 21, Alanine Aminotransferase (ALT/SGPT) < 6L, Alkaline Phosphatase 106, Total Protein 7.2, Albumin 1.9L, Globulin 5.3, Albumin/Globulin Ratio 0.4L Height (Feet): 5 Height (Inches): 3.00 Weight (Pounds): 165 General Appearance: morbidly obese EENT: PERRL/EOMI, pharynx normal Neck: non-tender, supple Cardiovascular: normal rate, regular rhythm, no gallop/murmur, no JVD Respiratory/Chest: decreased breath sounds Abdomen: distended Extremities: swelling Edema: 4+ Arm (L), 3+ Arm (R), 4+ Leg (L), 4+ Leg (R), 4+ Pedal (L), 4+ Pedal ( R), 4+ Generalized Neurologic: vocational counselor II-XII grossly normal, oriented x 3, responsive Skin: rash Lymphatic: normal anterior cervical (L), normal anterior cervical (R), normal posterior cervical (L), normal posterior cervical (R), normal submandibular (L) , normal submandibular (R), normal supraclavicular (L), normal supraclavicular ( R), normal axillary (L), normal axillary (R), normal inguinal (L), normal inguinal (R), normal other Manny Nolan MD Dec 05, 2016 22:21
[2016-12-06] VITALS (7 sets, daily range): BP systolic 94–139; BP diastolic 52–71
[2016-12-06 04:39] LABS: BASOPHILS % (AUTO) 0.7 % (0.0-2.0); EOSINOPHILS % (AUTO) 1.7 % (0.0-3.0); LYMPHOCYTES % (AUTO) 10.6 % (20.0-45.0); MEAN CORPUSCULAR HEMOGLOBIN 30.7 PG (27.0-31.0); MEAN CORPUSCULAR HGB CONC 30.6 G/DL (32.0-36.0); MEAN CORPUSCULAR VOLUME 101 FL (80-99); MEAN PLATELET VOLUME 6.9 FL (6.5-10.1); MONOCYTES % (AUTO) 7.2 % (1.0-10.0); NEUTROPHILS % (AUTO) 79.8 % (45.0-75.0); PLATELET COUNT 156 K/UL (150-450); RED BLOOD COUNT 2.67 M/UL (4.20-5.40); RED CELL DISTRIBUTION WIDTH 19.7 % (11.6-14.8); WHITE BLOOD COUNT 9.4 K/UL (4.8-10.8)
[2016-12-06 05:32] LABS: ALANINE AMINOTRANSFERASE < 6 U/L (12-78); ALBUMIN/GLOBULIN RATIO 0.4 (1.0-2.7); ANION GAP 6 mmol/L (5-15); ASPARTATE AMINO TRANSFERASE 16 U/L (15-37); CALCIUM 8.6 MG/DL (8.5-10.1); CARBON DIOXIDE 32 MMOL/L (21-32); CHLORIDE 100 MMOL/L (98-107); CREATININE 3.9 MG/DL (0.55-1.30); MAGNESIUM 1.7 MG/DL (1.8-2.4); PHOSPHORUS 1.6 MG/DL (2.5-4.9); POTASSIUM 3.3 MMOL/L (3.5-5.1); SODIUM 138 MMOL/L (136-145); TOTAL PROTEIN 6.9 G/DL (6.4-8.2)
--- NOTE | 2016-12-06 05:42 | Immediate Post-Op Evaluation ---
Immediate Post-Op Evalulation Immediate Post-Op Evalulation Procedure: egd/peg Date of Evaluation: Dec 03, 2016 Time of Evaluation: 10:25 IV Fluids: 0.9ns 50ml Blood Products: none Estimated Blood Loss: negligible Blood Pressure Systolic: 104 Blood Pressure Diastolic: 57 Pulse Rate: 80 Respiratory Rate: 14 O2 Sat by Pulse Oximetry: 96 Temperature (Fahrenheit): 97.0 Pain Score (1-10): 0 Nausea: No Vomiting: No Complications none Patient Status: awake, reacts, patent Hydration Status: adequate Drug: vancomycin BOOKER YANG Dec 06, 2016 05:42
--- NOTE | 2016-12-06 05:43 | 48 Hour Post Anesthesia Eval ---
Post Anesthesia Evaluation Procedure: egd/peg Date of Evaluation: Dec 03, 2016 Time of Evaluation: 10:27 Blood Pressure Systolic: 104 0: 57 Pulse Rate: 80 Respiratory Rate: 16 Temperature (Fahrenheit): 97.0 O2 Sat by Pulse Oximetry: 96 Airway: patent Nausea: No Vomiting: No Pain Intensity: 0 Hydration Status: adequate Cardiopulmonary Status: stable Mental Status/LOC: patient returned to baseline Post-Anesthesia Complications: none Follow-up care needed: N/A BOOKER YANG Dec 06, 2016 05:43
[2016-12-06] MEDS: Midodrine 10mg tab GT SCH ×3 (06:06→21:34)
[2016-12-06 06:13] LABS: BILIRUBIN,DIRECT 0.7 MG/DL (0.0-0.3)
[2016-12-06] MEDS: Allopurinol 100mg Tab ORAL SCH (08:57)
[2016-12-06] MEDS: Docusate 100mg/10ml Liq GT SCH ×2 (08:57→17:45)
[2016-12-06] MEDS: Miralax 17gm pkt ORAL SCH (08:57)
[2016-12-06] MEDS: Revatio 20mg tab ORAL SCH ×3 (08:57→17:45)
--- NOTE | 2016-12-06 09:59 | GI Progress Note ---
Assessment/Plan Problems: (1) Positive occult stool blood test ICD Codes: R19.5 - Other fecal abnormalities SNOMED: 37526154, 216342117 (2) Morbid obesity ICD Codes: E66.01 - Morbid (severe) obesity due to excess calories SNOMED: 059571358, 59987657386464 (3) Anemia ICD Codes: D64.9 - Anemia, unspecified SNOMED: 720459581 (4) PEG (percutaneous endoscopic gastrostomy) adjustment/replacement/removal ICD Codes: Z43.1 - Encounter for attention to gastrostomy SNOMED: 807999791, 210985704 Status: unchanged Status Narrative 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 Dr. Noriega. Assessment/Plan s/p PEG GTF at 40 cc /o and tolerated fu pulmonary recs bowel regime ppi fu labs Subjective Subjective limited Objective Last 24 Hour Vital Signs Date Time Temp Pulse Resp B/P (MAP) Pulse Ox O2 Delivery O2 Flow Rate FiO2 12/06/16 08:50 85 17 50 12/06/16 08:00 80 12/06/16 08:00 70 12/06/16 08:00 97.3 69 14 114/58 100 Mechanical Ventilator 70 12/06/16 07:25 74 14 50 12/06/16 05:43 80 16 96 12/06/16 05:42 80 14 96 12/06/16 05:20 82 17 50 12/06/16 04:00 97.1 92 14 139/61 100 Mechanical Ventilator 70 12/06/16 04:00 70 12/06/16 04:00 67 12/06/16 03:25 83 14 50 12/06/16 01:30 67 14 50 12/06/16 00:00 84 12/06/16 00:00 60 12/06/16 00:00 97.0 66 14 119/67 100 Mechanical Ventilator 60 12/05/16 23:16 90 16 50 12/05/16 21:16 88 17 50 12/05/16 20:00 60 12/05/16 20:00 71 12/05/16 20:00 97.0 66 14 91/55 100 Mechanical Ventilator 60 12/05/16 19:19 67 14 50 12/05/16 16:50 74 14 50 12/05/16 16:20 97.9 92 15 93/53 100 Mechanical Ventilator 60 10/29/17 16:00 77 12/05/16 16:00 60 12/05/16 15:16 78 14 50 12/05/16 12:54 74 14 50 12/05/16 12:00 102 12/05/16 12:00 60 12/05/16 11:23 97.9 89 14 105/53 100 Mechanical Ventilator 60 12/05/16 11:16 80 15 50 Laboratory Tests Test 12/06/16 03:30 White Blood Count 9.4 K/UL (4.8-10.8) Red Blood Count 2.67 M/UL (4.20-5.40) L Hemoglobin 8.2 G/DL (12.0-16.0) L Hematocrit 26.8 % (37.0-47.0) L Mean Corpuscular Volume 101 FL (80-99) H Mean Corpuscular Hemoglobin 30.7 PG (27.0-31.0) Mean Corpuscular Hemoglobin Concent 30.6 G/DL (32.0-36.0) L Red Cell Distribution Width 19.7 % (11.6-14.8) H Platelet Count 156 K/UL (150-450) Mean Platelet Volume 6.9 FL (6.5-10.1) Neutrophils (%) (Auto) 79.8 % (45.0-75.0) H Lymphocytes (%) (Auto) 10.6 % (20.0-45.0) L Monocytes (%) (Auto) 7.2 % (1.0-10.0) Eosinophils (%) (Auto) 1.7 % (0.0-3.0) Basophils (%) (Auto) 0.7 % (0.0-2.0) Sodium Level 138 MMOL/L (136-145) Potassium Level 3.3 MMOL/L (3.5-5.1) L Chloride Level 100 MMOL/L (98-107) Carbon Dioxide Level 32 MMOL/L (21-32) Anion Gap 6 mmol/L (5-15) Blood Urea Nitrogen 27 mg/dL (7-18) H Creatinine 3.9 MG/DL (0.55-1.30) H Estimat Glomerular Filtration Rate mL/min (>60) Glucose Level 150 MG/DL (74-106) H Calcium Level 8.6 MG/DL (8.5-10.1) Phosphorus Level 1.6 MG/DL (2.5-4.9) L Magnesium Level 1.7 MG/DL (1.8-2.4) L Total Bilirubin 1.1 MG/DL (0.2-1.0) H Direct Bilirubin 0.7 MG/DL (0.0-0.3) H Aspartate Amino Transf (AST/SGOT) 16 U/L (15-37) Alanine Aminotransferase (ALT/SGPT) < 6 U/L (12-78) L Alkaline Phosphatase 95 U/L (46-116) Total Protein 6.9 G/DL (6.4-8.2) Albumin 1.9 G/DL (3.4-5.0) L Globulin 5.0 g/dL Albumin/Globulin Ratio 0.4 (1.0-2.7) L Height (Feet): 5 Height (Inches): 3.00 Weight (Pounds): 165 General Appearance: no apparent distress, alert, obese Cardiovascular: normal rate Respiratory/Chest: no respiratory distress, other - trach to vent Abdominal Exam: site - c/d/i Kateryna Sherman N.P. Dec 06, 2016 09:59
[2016-12-06] MEDS ORDERED: Tubing IV Secondary IV ONE (11:23)
[2016-12-06] MEDS ORDERED: NS 275ml ONE ×2 (11:23→16:00)
--- NOTE | 2016-12-06 11:30 | Pulmonology Progress Note ---
Assessment/Plan Problems: (1) Chronic respiratory failure (2) Anasarca (3) ATN (acute tubular necrosis) (4) Anemia (5) Peripheral edema (6) Pickwickian syndrome (7) MINA (obstructive sleep apnea) (8) Morbid obesity Respiratory: adjust tidal volume, adjust FIO2, CXR Cardiac: continue pressors, stop pressors, continue to monitor HR/BP, stress echo Renal: F/U I&O, keep IV fluid Infectious Disease: check cultures Gastrointestinal: continue feedings/current rate Endocrine: continue sliding scale insulin Hematologic: transfuse if hgb<8.5 Neurologic: PRN Ativan, PRN Morphine, keep patient comfortable Notes Reviewed: voice network administrator, renal 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: nurses, therapeutic case manager Subjective ROS Limited/Unobtainable: No Constitutional: Reports: no symptoms HEENT: Repors: no symptoms Allergies: Coded Allergies: AMOXICILLIN (Verified Allergy, Mild, RASH, 09/30/16) PENICILLINS (Unverified Allergy, Unknown, 09/30/16) Objective Last 24 Hour Vital Signs Date Time Temp Pulse Resp B/P (MAP) Pulse Ox O2 Delivery O2 Flow Rate FiO2 12/06/16 11:10 73 14 50 12/06/16 08:50 85 17 50 12/06/16 08:00 80 12/06/16 08:00 70 12/06/16 08:00 97.3 69 14 114/58 100 Mechanical Ventilator 70 12/06/16 07:25 74 14 50 12/06/16 05:43 80 16 96 12/06/16 05:42 80 14 96 12/06/16 05:20 82 17 50 12/06/16 04:00 97.1 92 14 139/61 100 Mechanical Ventilator 70 12/06/16 04:00 70 12/06/16 04:00 67 12/06/16 03:25 83 14 50 12/06/16 01:30 67 14 50 12/06/16 00:00 84 12/06/16 00:00 60 12/06/16 00:00 97.0 66 14 119/67 100 Mechanical Ventilator 60 12/05/16 23:16 90 16 50 12/05/16 21:16 88 17 50 12/05/16 20:00 60 12/05/16 20:00 71 12/05/16 20:00 97.0 66 14 91/55 100 Mechanical Ventilator 60 12/05/16 19:19 67 14 50 12/05/16 16:50 74 14 50 12/05/16 16:20 97.9 92 15 93/53 100 Mechanical Ventilator 60 12/05/16 16:00 77 12/05/16 16:00 60 12/05/16 15:16 78 14 50 12/05/16 12:54 74 14 50 12/05/16 12:00 102 12/05/16 12:00 60 Intake and Output 12/06/16 12/07/16 19:00 07:00 Intake Total 260 ml Balance 260 ml Tube Feeding 20 ml Other 240 ml General Appearance: WD/WN HEENT: normocephalic, atraumatic Respiratory/Chest: chest wall non-tender, lungs clear Cardiovascular: normal peripheral pulses, normal rate Abdomen: normal bowel sounds, soft, non tender Genitourinary: normal external genitalia Extremities: no cyanosis, no clubbing Skin: no ulcers Neurologic/Psychiatric: no motor/sensory deficits, normal mood/affect Lymphatic: no groin adenopathy Laboratory Tests 12/06/16 03:30: White Blood Count 9.4, Red Blood Count 2.67L, Hemoglobin 8.2L, Hematocrit 26.8L , Mean Corpuscular Volume 101H, Mean Corpuscular Hemoglobin 30.7, Mean Corpuscular Hemoglobin Concent 30.6L, Red Cell Distribution Width 19.7H, Platelet Count 156, Mean Platelet Volume 6.9, Neutrophils (%) (Auto) 79.8H, Lymphocytes (%) (Auto) 10.6L, Monocytes (%) (Auto) 7.2, Eosinophils (%) (Auto) 1.7, Basophils (%) (Auto) 0.7, Sodium Level 138, Potassium Level 3.3L, Chloride Level 100, Carbon Dioxide Level 32, Anion Gap 6, Blood Urea Nitrogen 27H, Creatinine 3.9H, Estimat Glomerular Filtration Rate , Glucose Level 150H, Calcium Level 8.6, Phosphorus Level 1.6L, Magnesium Level 1.7L, Total Bilirubin 1.1H, Direct Bilirubin 0.7H, Aspartate Amino Transf (AST/SGOT) 16, Alanine Aminotransferase (ALT/SGPT) < 6L, Alkaline Phosphatase 95, Total Protein 6.9, Albumin 1.9L, Globulin 5.0, Albumin/Globulin Ratio 0.4L Current Medications Medications (Trade) Dose Ordered Sig/Kalyn Route PRN Reason Start Time Stop Time Status Last Admin Dose Admin Acetaminophen (Tylenol) 650 mg Q4H PRN ORAL Mild Pain/Temp > 100.5 12/03/16 15:00 12/12/16 14:59 Allopurinol (Zyloprim) 200 mg DAILY ORAL 12/04/16 09:00 01/02/17 08:59 12/06/16 08:57 Chlorhexidine Gluconate (Marni-Hex 2%) 1 applic Q24H TOPIC 12/03/16 20:00 12/27/16 19:59 12/05/16 20:15 Diphenhydramine HCl (Benadryl) 25 mg Q6H PRN IVP Itching 12/03/16 15:00 12/19/16 14:59 Docusate Sodium (Colace) 100 mg TWICE A DAY GT 12/04/16 09:00 01/03/17 08:59 12/06/16 08:57 Epoetin Santos (Procrit (for non ESRD use)) 10,000 units TUE-TUE-TUE SUBQ 12/03/16 21:00 12/17/16 20:59 12/03/16 21:22 Folic Acid (Folate) 1 mg DAILY ORAL 12/04/16 09:00 12/12/16 08:59 12/06/16 08:57 Gabapentin (Neurontin) 600 mg BID ORAL 12/03/16 18:00 12/14/16 08:59 12/06/16 08:58 Lorazepam (Ativan 2mg/ml 1ml) 2 mg Q2H PRN IV For Anxiety 12/03/16 15:15 12/06/16 13:14 12/04/16 04:49 Midodrine (Pro-Amatine) 10 mg EVERY 8 HOURS GT 12/05/16 22:00 01/04/17 21:59 12/06/16 06:06 Polyethylene Glycol (Miralax) 17 gm DAILY ORAL 12/04/16 09:00 12/12/16 08:59 12/06/16 08:57 Pravastatin Sodium (Pravachol) 20 mg BEDTIME ORAL 12/03/16 21:00 12/12/16 20:59 12/05/16 21:33 Ranitidine HCl (Zantac) 150 mg TWICE A DAY GT 12/05/16 18:00 01/04/17 17:59 12/06/16 08:57 Sildenafil Citrate (Revatio) 20 mg THREE TIMES A DAY ORAL 12/03/16 18:00 12/12/16 08:59 12/06/16 08:57 ARASH MIRANDA Dec 06, 2016 11:30
--- NOTE | 2016-12-06 11:49 | Diagnostic Imaging Report ---
Indication: Abnormal liver function tests. Abnormal renal function tests Technique: Huggins-scale and duplex images of the upper abdomen were obtained Comparison: None. Reference made to renal ultrasound dated 03/29/2016, abdomen pelvis CT angiogram 12/24/2009 Findings: Exam is limited due to patient body habitus as well as anasarca Gallbladder not visualized. Likely surgically absent, as it is not demonstrated on prior CT scan. Common bile duct measures 3 mm in diameter. No intrahepatic biliary ductal dilatation. Liver demonstrates normal echogenicity, no focal abnormality. Portal vein and hepatic veins are patent. Pancreas is incompletely visualized due to overlying bowel gas, visualized portions are unremarkable. The spleen could not be demonstrated Left kidney measures could not be demonstrated. Right kidney measures 10.2 cm length. Right kidney demonstrates normal echogenicity. There is no hydronephrosis. No focal abnormality . Abdominal aorta is partially obscured by bowel gas, visualized portions are non-aneurysmal . There is either pleural fluid or ascites seen in the left upper quadrant. Impression: Very limited exam, as described. Note inability to visualize the spleen and left kidney, and limited visualization of the abdominal aorta and pancreas Nonvisualized gallbladder, probably surgically absent Negative for dilated ducts Left upper quadrant ascites fluid versus pleural effusion
--- NOTE | 2016-12-06 12:00 | Infectious Diseases Prog Note ---
Assessment/Plan Assessment/Plan Abx: IV Vancomycin 11/11-11/12; 11/17-11/26 IV Cefepime 11/11-11/12 IV Ancef 11/12-11/28 Flagyl x1 11/11 Assesment: Cellulitis BLE and R arm- in the setting of chronic leg edema/venous stasis, s/ p Rx- Limited Venous duplex BLE (non diagnostic), no DVT R arm;Cellulitis resolved;Now residual venous stasis changes. -Bcx Neg Anasarca/ bilateral leg lymphedema -CXR 12/04: Improved although persistent right lung parenchymal infiltrates versus edema, over one day. -CXR 12/03:Bilateral interstitial and alveolar edema persists Afebrile, no leukocytosis REnal insufficiency- acute on chronic- started on HD 11/24 VRE colonzied COPD Diastolic CHF chronic resp failure, vent/trach dependent, Gtbue, pAfib, pleural effusion, MINA , CKD, GERD, morbid obesity, [facility] resident Plan: -Continue to monitor off abx -s/p 18d IV Ancef 11/28 -s/p 10 d IV Vancomycin 11/26 -extremity elevation -edema management -Monitor CBC/BMP, temperatures - vent support, trach care, aspiration precautions Thank you for this consultation. Will continue to follow along with you. 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 RN. Subjective Allergies: Coded Allergies: AMOXICILLIN (Verified Allergy, Mild, RASH, 09/30/16) PENICILLINS (Unverified Allergy, Unknown, 09/30/16) Subjective afebrile no leukocytosis off abx Objective Vital Signs Last 24 Hour Vital Signs Date Time Temp Pulse Resp B/P (MAP) Pulse Ox O2 Delivery O2 Flow Rate FiO2 12/06/16 11:10 73 14 50 12/06/16 08:50 85 17 50 12/06/16 08:00 80 12/06/16 08:00 70 12/06/16 08:00 97.3 69 14 114/58 100 Mechanical Ventilator 70 12/06/16 07:25 74 14 50 12/06/16 05:43 80 16 96 12/06/16 05:42 80 14 96 12/06/16 05:20 82 17 50 12/06/16 04:00 97.1 92 14 139/61 100 Mechanical Ventilator 70 12/06/16 04:00 70 12/06/16 04:00 67 12/06/16 03:25 83 14 50 12/06/16 01:30 67 14 50 12/06/16 00:00 84 12/06/16 00:00 60 12/06/16 00:00 97.0 66 14 119/67 100 Mechanical Ventilator 60 12/05/16 23:16 90 16 50 12/05/16 21:16 88 17 50 12/05/16 20:00 60 12/05/16 20:00 71 12/05/16 20:00 97.0 66 14 91/55 100 Mechanical Ventilator 60 12/05/16 19:19 67 14 50 12/05/16 16:50 74 14 50 12/05/16 16:20 97.9 92 15 93/53 100 Mechanical Ventilator 60 12/05/16 16:00 77 12/05/16 16:00 60 12/05/16 15:16 78 14 50 12/05/16 12:54 74 14 50 12/05/16 12:00 102 12/05/16 12:00 60 Height (Feet): 5 Height (Inches): 3.00 Weight (Pounds): 165 Objective General Appearance: WD/WN HEENT: trach in palce, Respiratory/Chest: chest wall non-tender, lungs clear Cardiovascular/Chest: normal peripheral pulses, normal rate Abdomen: normal bowel sounds, non tender Ext: venous statis changes, now b/l legs back to baseline; cellulitis resolved, swelling improved Laboratory Tests Test 12/06/16 03:30 White Blood Count 9.4 K/UL (4.8-10.8) Red Blood Count 2.67 M/UL (4.20-5.40) L Hemoglobin 8.2 G/DL (12.0-16.0) L Hematocrit 26.8 % (37.0-47.0) L Mean Corpuscular Volume 101 FL (80-99) H Mean Corpuscular Hemoglobin 30.7 PG (27.0-31.0) Mean Corpuscular Hemoglobin Concent 30.6 G/DL (32.0-36.0) L Red Cell Distribution Width 19.7 % (11.6-14.8) H Platelet Count 156 K/UL (150-450) Mean Platelet Volume 6.9 FL (6.5-10.1) Neutrophils (%) (Auto) 79.8 % (45.0-75.0) H Lymphocytes (%) (Auto) 10.6 % (20.0-45.0) L Monocytes (%) (Auto) 7.2 % (1.0-10.0) Eosinophils (%) (Auto) 1.7 % (0.0-3.0) Basophils (%) (Auto) 0.7 % (0.0-2.0) Sodium Level 138 MMOL/L (136-145) Potassium Level 3.3 MMOL/L (3.5-5.1) L Chloride Level 100 MMOL/L (98-107) Carbon Dioxide Level 32 MMOL/L (21-32) Anion Gap 6 mmol/L (5-15) Blood Urea Nitrogen 27 mg/dL (7-18) H Creatinine 3.9 MG/DL (0.55-1.30) H Estimat Glomerular Filtration Rate mL/min (>60) Glucose Level 150 MG/DL (74-106) H Calcium Level 8.6 MG/DL (8.5-10.1) Phosphorus Level 1.6 MG/DL (2.5-4.9) L Magnesium Level 1.7 MG/DL (1.8-2.4) L Total Bilirubin 1.1 MG/DL (0.2-1.0) H Direct Bilirubin 0.7 MG/DL (0.0-0.3) H Aspartate Amino Transf (AST/SGOT) 16 U/L (15-37) Alanine Aminotransferase (ALT/SGPT) < 6 U/L (12-78) L Alkaline Phosphatase 95 U/L (46-116) Total Protein 6.9 G/DL (6.4-8.2) Albumin 1.9 G/DL (3.4-5.0) L Globulin 5.0 g/dL Albumin/Globulin Ratio 0.4 (1.0-2.7) L Current Medications Medications (Trade) Dose Ordered Sig/Kalyn Route PRN Reason Start Time Stop Time Status Last Admin Dose Admin Acetaminophen (Tylenol) 650 mg Q4H PRN ORAL Mild Pain/Temp > 100.5 12/03/16 15:00 12/12/16 14:59 Allopurinol (Zyloprim) 200 mg DAILY ORAL 12/04/16 09:00 01/02/17 08:59 12/06/16 08:57 Chlorhexidine Gluconate (Marni-Hex 2%) 1 applic Q24H TOPIC 12/03/16 20:00 12/27/16 19:59 12/05/16 20:15 Diphenhydramine HCl (Benadryl) 25 mg Q6H PRN IVP Itching 12/03/16 15:00 12/19/16 14:59 Docusate Sodium (Colace) 100 mg TWICE A DAY GT 12/04/16 09:00 01/03/17 08:59 12/06/16 08:57 Epoetin Santos (Procrit (for non ESRD use)) 10,000 units TUE-TUE-TUE SUBQ 12/03/16 21:00 12/17/16 20:59 12/03/16 21:22 Folic Acid (Folate) 1 mg DAILY ORAL 12/04/16 09:00 12/12/16 08:59 12/06/16 08:57 Gabapentin (Neurontin) 600 mg BID ORAL 12/03/16 18:00 12/14/16 08:59 12/06/16 08:58 Lorazepam (Ativan 2mg/ml 1ml) 2 mg Q2H PRN IV For Anxiety 12/03/16 15:15 12/06/16 13:14 12/04/16 04:49 Midodrine (Pro-Amatine) 10 mg EVERY 8 HOURS GT 12/05/16 22:00 01/04/17 21:59 12/06/16 06:06 Polyethylene Glycol (Miralax) 17 gm DAILY ORAL 12/04/16 09:00 12/12/16 08:59 12/06/16 08:57 Pravastatin Sodium (Pravachol) 20 mg BEDTIME ORAL 12/03/16 21:00 12/12/16 20:59 12/05/16 21:33 Ranitidine HCl (Zantac) 150 mg TWICE A DAY GT 12/05/16 18:00 01/04/17 17:59 12/06/16 08:57 Sildenafil Citrate (Revatio) 20 mg THREE TIMES A DAY ORAL 12/03/16 18:00 12/12/16 08:59 12/06/16 08:57 Danielle Gou M.D. Dec 06, 2016 12:00
[2016-12-06] MEDS: Phospha 250 Neutral tab GT SCH ×2 (13:20→17:45)
--- NOTE | 2016-12-06 16:16 | General Progress Note ---
Assessment/Plan Status: stable Assessment/Plan Cellulitis BLE and R arm- in the setting of chronic leg edema- r/o DVT Anasarca/ bilateral leg lymphedema CKD- and acute renal failure - Acute respiratory failure s/p Trach Obese COPD , CHF, Diastolic MINA UTI Anemia GI Bleed, GI bleeding At Fib Pulm HTN h/o Low B12 plan: Now has PEG HD 12/06 K supplement as needed on EPOGEN 24 H urine collection in process: CrCl 6 Monitor renal parameters- optimize cardiac and pulm status avoid nephrotoxics- pulmonary support- transfuse as needed ? DC planning post PEG Subjective ROS Limited/Unobtainable: No Constitutional: Reports: malaise Allergies: Coded Allergies: AMOXICILLIN (Verified Allergy, Mild, RASH, 09/30/16) PENICILLINS (Unverified Allergy, Unknown, 09/30/16) Objective Last 24 Hour Vital Signs Date Time Temp Pulse Resp B/P (MAP) Pulse Ox O2 Delivery O2 Flow Rate FiO2 12/06/16 16:00 97.9 76 14 110/59 100 Mechanical Ventilator 70 12/06/16 16:00 70 12/06/16 14:45 84 17 50 12/06/16 12:50 75 14 50 12/06/16 12:00 70 12/06/16 12:00 64 12/06/16 12:00 96.1 68 18 94/52 100 Mechanical Ventilator 40 12/06/16 11:10 73 14 50 12/06/16 08:50 85 17 50 12/06/16 08:00 80 12/06/16 08:00 70 12/06/16 08:00 97.3 69 14 114/58 100 Mechanical Ventilator 70 12/06/16 07:25 74 14 50 12/06/16 05:43 80 16 96 12/06/16 05:42 80 14 96 12/06/16 05:20 82 17 50 12/06/16 04:00 97.1 92 14 139/61 100 Mechanical Ventilator 70 12/06/16 04:00 70 12/06/16 04:00 67 12/06/16 03:25 83 14 50 12/06/16 01:30 67 14 50 12/06/16 00:00 84 12/06/16 00:00 60 12/06/16 00:00 97.0 66 14 119/67 100 Mechanical Ventilator 60 12/05/16 23:16 90 16 50 12/05/16 21:16 88 17 50 12/05/16 20:00 60 12/05/16 20:00 71 12/05/16 20:00 97.0 66 14 91/55 100 Mechanical Ventilator 60 12/05/16 19:19 67 14 50 12/05/16 16:50 74 14 50 12/05/16 16:20 97.9 92 15 93/53 100 Mechanical Ventilator 60 Intake and Output 12/06/16 12/07/16 19:00 07:00 Intake Total 410 ml Balance 410 ml Tube Feeding 120 ml Other 290 ml Laboratory Tests 12/06/16 03:30: White Blood Count 9.4, Red Blood Count 2.67L, Hemoglobin 8.2L, Hematocrit 26.8L , Mean Corpuscular Volume 101H, Mean Corpuscular Hemoglobin 30.7, Mean Corpuscular Hemoglobin Concent 30.6L, Red Cell Distribution Width 19.7H, Platelet Count 156, Mean Platelet Volume 6.9, Neutrophils (%) (Auto) 79.8H, Lymphocytes (%) (Auto) 10.6L, Monocytes (%) (Auto) 7.2, Eosinophils (%) (Auto) 1.7, Basophils (%) (Auto) 0.7, Sodium Level 138, Potassium Level 3.3L, Chloride Level 100, Carbon Dioxide Level 32, Anion Gap 6, Blood Urea Nitrogen 27H, Creatinine 3.9H, Estimat Glomerular Filtration Rate , Glucose Level 150H, Calcium Level 8.6, Phosphorus Level 1.6L, Magnesium Level 1.7L, Total Bilirubin 1.1H, Direct Bilirubin 0.7H, Aspartate Amino Transf (AST/SGOT) 16, Alanine Aminotransferase (ALT/SGPT) < 6L, Alkaline Phosphatase 95, Total Protein 6.9, Albumin 1.9L, Globulin 5.0, Albumin/Globulin Ratio 0.4L Height (Feet): 5 Height (Inches): 3.00 Weight (Pounds): 165 General Appearance: no apparent distress Respiratory/Chest: decreased breath sounds Abdomen: soft, other - PEG+ Objective much less edematous COURTNEY LOPEZ Dec 06, 2016 16:16
--- NOTE | 2016-12-06 19:11 | Cardiology Progress Note ---
Assessment/Plan Assessment/Plan 1. Permanent atrial fibrillation. 2. Chronic respiratory failure, on a mechanical ventilator. 3. Cor pulmonale. 4. Pulmonary hypertension. 5. Acute renal failure, now on dialysis. 6. Anemia. 7. Significant edema. 8. Hypoalbuminemia. 9. stool ob + bp borderline on vent remain in afib stool now ob + no anticoagulation for now toleratign g tube feeding Subjective ROS Limited/Unobtainable: Yes Subjective on the vent awake Objective Last 24 Hour Vital Signs Date Time Temp Pulse Resp B/P (MAP) Pulse Ox O2 Delivery O2 Flow Rate FiO2 12/06/16 17:00 73 14 50 12/06/16 16:42 16 110/59 Mechanical Ventilator 70 12/06/16 16:00 80 12/06/16 16:00 97.9 76 14 110/59 100 Mechanical Ventilator 70 12/06/16 16:00 70 12/06/16 14:45 84 17 50 12/06/16 12:50 75 14 50 12/06/16 12:00 70 12/06/16 12:00 64 12/06/16 12:00 96.1 68 18 94/52 100 Mechanical Ventilator 40 12/06/16 11:10 73 14 50 12/06/16 08:50 85 17 50 12/06/16 08:00 80 12/06/16 08:00 70 12/06/16 08:00 97.3 69 14 114/58 100 Mechanical Ventilator 70 12/06/16 07:25 74 14 50 12/06/16 05:43 80 16 96 12/06/16 05:42 80 14 96 12/06/16 05:20 82 17 50 12/06/16 04:00 97.1 92 14 139/61 100 Mechanical Ventilator 70 12/06/16 04:00 70 12/06/16 04:00 67 12/06/16 03:25 83 14 50 12/06/16 01:30 67 14 50 12/06/16 00:00 84 12/06/16 00:00 60 12/06/16 00:00 97.0 66 14 119/67 100 Mechanical Ventilator 60 12/05/16 23:16 90 16 50 12/05/16 21:16 88 17 50 12/05/16 20:00 60 12/05/16 20:00 71 12/05/16 20:00 97.0 66 14 91/55 100 Mechanical Ventilator 60 12/05/16 19:19 67 14 50 General Appearance: no apparent distress, alert, on vent, patient on isolation Intake and Output 12/06/16 12/07/16 19:00 07:00 Intake Total 780 ml Output Total 1419 ml Balance -639 ml IV Total 200 ml Tube Feeding 240 ml Other 340 ml Output Urine Total 5 ml Hemodialysis UF 1414 ml Laboratory Tests Test 12/06/16 03:30 White Blood Count 9.4 K/UL (4.8-10.8) Red Blood Count 2.67 M/UL (4.20-5.40) L Hemoglobin 8.2 G/DL (12.0-16.0) L Hematocrit 26.8 % (37.0-47.0) L Mean Corpuscular Volume 101 FL (80-99) H Mean Corpuscular Hemoglobin 30.7 PG (27.0-31.0) Mean Corpuscular Hemoglobin Concent 30.6 G/DL (32.0-36.0) L Red Cell Distribution Width 19.7 % (11.6-14.8) H Platelet Count 156 K/UL (150-450) Mean Platelet Volume 6.9 FL (6.5-10.1) Neutrophils (%) (Auto) 79.8 % (45.0-75.0) H Lymphocytes (%) (Auto) 10.6 % (20.0-45.0) L Monocytes (%) (Auto) 7.2 % (1.0-10.0) Eosinophils (%) (Auto) 1.7 % (0.0-3.0) Basophils (%) (Auto) 0.7 % (0.0-2.0) Sodium Level 138 MMOL/L (136-145) Potassium Level 3.3 MMOL/L (3.5-5.1) L Chloride Level 100 MMOL/L (98-107) Carbon Dioxide Level 32 MMOL/L (21-32) Anion Gap 6 mmol/L (5-15) Blood Urea Nitrogen 27 mg/dL (7-18) H Creatinine 3.9 MG/DL (0.55-1.30) H Estimat Glomerular Filtration Rate mL/min (>60) Glucose Level 150 MG/DL (74-106) H Calcium Level 8.6 MG/DL (8.5-10.1) Phosphorus Level 1.6 MG/DL (2.5-4.9) L Magnesium Level 1.7 MG/DL (1.8-2.4) L Total Bilirubin 1.1 MG/DL (0.2-1.0) H Direct Bilirubin 0.7 MG/DL (0.0-0.3) H Aspartate Amino Transf (AST/SGOT) 16 U/L (15-37) Alanine Aminotransferase (ALT/SGPT) < 6 U/L (12-78) L Alkaline Phosphatase 95 U/L (46-116) Total Protein 6.9 G/DL (6.4-8.2) Albumin 1.9 G/DL (3.4-5.0) L Globulin 5.0 g/dL Albumin/Globulin Ratio 0.4 (1.0-2.7) L BRIANA TELLES Dec 06, 2016 19:11
--- NOTE | 2016-12-06 19:58 | General Progress Note ---
Assessment/Plan Status: progressing Assessment/Plan This is a 76-year-old, morbidly obese female, admitted with anasarca and cellulitis of the lower leg. The patient was admitted to the directr observation unit on the monitor with the following medical problems. now transfered to icu as of 11-14-16, co of pruritis 1. Anasarca. She appears to be markedly swollen. She will need diuresis. Place the patient on Lasix 20 mg intravenous for now q.12 hours. Cardiology and Pulmonary on the case. We will follow orders. Check laboratory studies daily. Lasix drip was discontinued in am, HD started 2. Chronic hypercapnic respiratory failure. Continue with vent support per Pulmonary. will discuss with pulmonary regarding trach issues 3 anemia. s./p transfusion of PRBC Continue monitoring CBC daily. patient to start Procrit per nephrology 4. Pulmonary hypertension. hold Eliquis 2.5 mg twice a day until trach is refitted 5. Chronic kidney disease. We will monitor BUN and creatinine. Gentle diuresis for now. Nephrology has been consulted. further workup per nephrology. avoid nephrotoxic agents HD to start soon 6. DVT prophylaxis. The patient is on Eliquis. The patient is Full 7. nutrition: patient didn't tolerate NGT placement, patient is now s/p PEG placement, tolerating tube feeding 8. Alkalosis: resolved 9. Generalized anxiety: Ativan prn, counselled for 15min 10. constipation: prn enema, continue with Colace and MiraLAX had revision of trach on 11-23-16 Benadryl 25 mg iv q 6 prn itching tolerating tube feeding continue HD per nephrology trach revision done by Dr. Powell discussed with nursing staff HD per nephrology continue current care Subjective Date patient seen: Dec 06, 2016 ROS Limited/Unobtainable: Yes Allergies: Coded Allergies: AMOXICILLIN (Verified Allergy, Mild, RASH, 09/30/16) PENICILLINS (Unverified Allergy, Unknown, 09/30/16) Subjective patient had HD today 1.6 L were taken out, less cyanosis noted Objective Last 24 Hour Vital Signs Date Time Temp Pulse Resp B/P (MAP) Pulse Ox O2 Delivery O2 Flow Rate FiO2 12/06/16 19:45 75 17 50 12/06/16 19:17 Mechanical Ventilator 50 12/06/16 17:00 73 14 50 12/06/16 16:42 16 110/59 Mechanical Ventilator 70 12/06/16 16:00 80 12/06/16 16:00 97.9 76 14 110/59 100 Mechanical Ventilator 70 12/06/16 16:00 70 12/06/16 14:45 84 17 50 12/06/16 12:50 75 14 50 12/06/16 12:00 70 12/06/16 12:00 64 12/06/16 12:00 96.1 68 18 94/52 100 Mechanical Ventilator 40 12/06/16 11:10 73 14 50 12/06/16 08:50 85 17 50 12/06/16 08:00 80 12/06/16 08:00 70 12/06/16 08:00 97.3 69 14 114/58 100 Mechanical Ventilator 70 12/06/16 07:25 74 14 50 12/06/16 05:43 80 16 96 12/06/16 05:42 80 14 96 12/06/16 05:20 82 17 50 12/06/16 04:00 97.1 92 14 139/61 100 Mechanical Ventilator 70 12/06/16 04:00 70 12/06/16 04:00 67 12/06/16 03:25 83 14 50 12/06/16 01:30 67 14 50 12/06/16 00:00 84 12/06/16 00:00 60 12/06/16 00:00 97.0 66 14 119/67 100 Mechanical Ventilator 60 12/05/16 23:16 90 16 50 12/05/16 21:16 88 17 50 12/05/16 20:00 60 12/05/16 20:00 71 12/05/16 20:00 97.0 66 14 91/55 100 Mechanical Ventilator 60 Intake and Output 12/06/16 12/07/16 19:00 07:00 Intake Total 820 ml Output Total 1419 ml 3000 ml Balance -599 ml -3000 ml IV Total 200 ml Tube Feeding 280 ml Other 340 ml Output Urine Total 5 ml Hemodialysis UF 1414 ml 3000 ml # Bowel Movements 1 Laboratory Tests 12/06/16 03:30: White Blood Count 9.4, Red Blood Count 2.67L, Hemoglobin 8.2L, Hematocrit 26.8L , Mean Corpuscular Volume 101H, Mean Corpuscular Hemoglobin 30.7, Mean Corpuscular Hemoglobin Concent 30.6L, Red Cell Distribution Width 19.7H, Platelet Count 156, Mean Platelet Volume 6.9, Neutrophils (%) (Auto) 79.8H, Lymphocytes (%) (Auto) 10.6L, Monocytes (%) (Auto) 7.2, Eosinophils (%) (Auto) 1.7, Basophils (%) (Auto) 0.7, Sodium Level 138, Potassium Level 3.3L, Chloride Level 100, Carbon Dioxide Level 32, Anion Gap 6, Blood Urea Nitrogen 27H, Creatinine 3.9H, Estimat Glomerular Filtration Rate , Glucose Level 150H, Calcium Level 8.6, Phosphorus Level 1.6L, Magnesium Level 1.7L, Total Bilirubin 1.1H, Direct Bilirubin 0.7H, Aspartate Amino Transf (AST/SGOT) 16, Alanine Aminotransferase (ALT/SGPT) < 6L, Alkaline Phosphatase 95, Total Protein 6.9, Albumin 1.9L, Globulin 5.0, Albumin/Globulin Ratio 0.4L Height (Feet): 5 Height (Inches): 3.00 Weight (Pounds): 165 General Appearance: morbidly obese EENT: PERRL/EOMI Neck: non-tender, supple Cardiovascular: normal rate, regular rhythm, no gallop/murmur, no JVD Respiratory/Chest: decreased breath sounds Abdomen: distended Extremities: swelling Edema: 4+ Arm (L), 4+ Arm (R), 4+ Leg (L), 4+ Leg (R), 4+ Pedal (L), 4+ Pedal ( R), 4+ Generalized Edema: severe edema 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
[2016-12-06] MEDS: Dyna-Hex 2% Top Sol 2oz TOPIC SCH (20:26)
[2016-12-06] MEDS: Epogen (for non ESRD use) SUBQ SCH (21:34)
--- NOTE | 2016-12-06 21:53 | General Progress Note ---
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 Will give Vitamin K and then repeat mixing study. #. Anemia secondary to chronic disease. Continue to closely monitor. Work up reviewed --> s/p transfusion. watch counts, transfuse if hgb is below 8 # Positive occult blood. r/o gi bleed. gi following #. Anemia of kidney disease. Nephrology service following #. PEG tube placement #. Chronic ventilator dependent #. Permanent atrial fibrillation. #. Cellulitis and chronic lymphedema of the bilateral lower extremities. #. Congestive heart failure. Subjective Constitutional: Reports: weakness Allergies: Coded Allergies: AMOXICILLIN (Verified Allergy, Mild, RASH, 09/30/16) PENICILLINS (Unverified Allergy, Unknown, 09/30/16) All Systems: reviewed and negative except above Subjective afebrile, has PEG, no events overnight Objective Last 24 Hour Vital Signs Date Time Temp Pulse Resp B/P (MAP) Pulse Ox O2 Delivery O2 Flow Rate FiO2 12/06/16 21:29 74 17 50 12/06/16 20:00 73 12/06/16 19:45 75 17 50 12/06/16 19:17 Mechanical Ventilator 50 12/06/16 17:00 73 14 50 12/06/16 16:42 16 110/59 Mechanical Ventilator 70 12/06/16 16:00 80 12/06/16 16:00 97.9 76 14 110/59 100 Mechanical Ventilator 70 12/06/16 16:00 70 12/06/16 14:45 84 17 50 12/06/16 12:50 75 14 50 12/06/16 12:00 70 12/06/16 12:00 64 12/06/16 12:00 96.1 68 18 94/52 100 Mechanical Ventilator 40 12/06/16 11:10 73 14 50 12/06/16 08:50 85 17 50 12/06/16 08:00 80 12/06/16 08:00 70 12/06/16 08:00 97.3 69 14 114/58 100 Mechanical Ventilator 70 12/06/16 07:25 74 14 50 12/06/16 05:43 80 16 96 12/06/16 05:42 80 14 96 12/06/16 05:20 82 17 50 12/06/16 04:00 97.1 92 14 139/61 100 Mechanical Ventilator 70 12/06/16 04:00 70 12/06/16 04:00 67 12/06/16 03:25 83 14 50 12/06/16 01:30 67 14 50 12/06/16 00:00 84 12/06/16 00:00 60 12/06/16 00:00 97.0 66 14 119/67 100 Mechanical Ventilator 60 12/05/16 23:16 90 16 50 Intake and Output 12/06/16 12/07/16 19:00 07:00 Intake Total 820 ml Output Total 1419 ml 3000 ml Balance -599 ml -3000 ml IV Total 200 ml Tube Feeding 280 ml Other 340 ml Output Urine Total 5 ml Hemodialysis UF 1414 ml 3000 ml # Bowel Movements 1 Laboratory Tests 12/06/16 03:30: White Blood Count 9.4, Red Blood Count 2.67L, Hemoglobin 8.2L, Hematocrit 26.8L , Mean Corpuscular Volume 101H, Mean Corpuscular Hemoglobin 30.7, Mean Corpuscular Hemoglobin Concent 30.6L, Red Cell Distribution Width 19.7H, Platelet Count 156, Mean Platelet Volume 6.9, Neutrophils (%) (Auto) 79.8H, Lymphocytes (%) (Auto) 10.6L, Monocytes (%) (Auto) 7.2, Eosinophils (%) (Auto) 1.7, Basophils (%) (Auto) 0.7, Sodium Level 138, Potassium Level 3.3L, Chloride Level 100, Carbon Dioxide Level 32, Anion Gap 6, Blood Urea Nitrogen 27H, Creatinine 3.9H, Estimat Glomerular Filtration Rate , Glucose Level 150H, Calcium Level 8.6, Phosphorus Level 1.6L, Magnesium Level 1.7L, Total Bilirubin 1.1H, Direct Bilirubin 0.7H, Aspartate Amino Transf (AST/SGOT) 16, Alanine Aminotransferase (ALT/SGPT) < 6L, Alkaline Phosphatase 95, Total Protein 6.9, Albumin 1.9L, Globulin 5.0, Albumin/Globulin Ratio 0.4L Height (Feet): 5 Height (Inches): 3.00 Weight (Pounds): 165 General Appearance: no apparent distress EENT: normal ENT inspection Neck: non-tender, normal alignment Respiratory/Chest: no accessory muscle use Abdomen: no organomegaly, no mass Extremities: non-tender Neurologic: no motor/sensory deficits Kleynberg,Serafin L. Dec 06, 2016 21:53
[2016-12-06] MEDS ORDERED: Phytonadione 10 MG in D5W 55 ML IVPB ONE (22:30)
[2016-12-07] VITALS (8 sets, daily range): BP systolic 97–117; BP diastolic 50–86
[2016-12-07] MEDS: Midodrine 10mg tab GT SCH ×3 (05:03→21:30)
[2016-12-07 05:04] LABS: MEAN CORPUSCULAR HEMOGLOBIN 31.2 PG (27.0-31.0); MEAN CORPUSCULAR HGB CONC 31.1 G/DL (32.0-36.0); MEAN CORPUSCULAR VOLUME 100 FL (80-99); MEAN PLATELET VOLUME 6.5 FL (6.5-10.1); PLATELET COUNT 151 K/UL (150-450); RED BLOOD COUNT 1.91 M/UL (4.20-5.40); RED CELL DISTRIBUTION WIDTH 19.2 % (11.6-14.8); WHITE BLOOD COUNT 10.8 K/UL (4.8-10.8)
[2016-12-07 05:56] LABS: BASOPHILS % (AUTO) 0.9 % (0.0-2.0); EOSINOPHILS % (AUTO) 1.4 % (0.0-3.0); LYMPHOCYTES % (AUTO) 8.2 % (20.0-45.0); MEAN CORPUSCULAR HEMOGLOBIN 30.5 PG (27.0-31.0); MEAN CORPUSCULAR HGB CONC 30.5 G/DL (32.0-36.0); MEAN CORPUSCULAR VOLUME 100 FL (80-99); MEAN PLATELET VOLUME 6.5 FL (6.5-10.1); MONOCYTES % (AUTO) 8.7 % (1.0-10.0); NEUTROPHILS % (AUTO) 80.8 % (45.0-75.0); PLATELET COUNT 151 K/UL (150-450); RED BLOOD COUNT 2.72 M/UL (4.20-5.40); RED CELL DISTRIBUTION WIDTH 19.9 % (11.6-14.8); WHITE BLOOD COUNT 12.4 K/UL (4.8-10.8)
[2016-12-07 05:59] LABS: ALANINE AMINOTRANSFERASE < 6 U/L (12-78); ALBUMIN/GLOBULIN RATIO 0.4 (1.0-2.7); ANION GAP 11 mmol/L (5-15); ASPARTATE AMINO TRANSFERASE 19 U/L (15-37); CALCIUM 8.7 MG/DL (8.5-10.1); CARBON DIOXIDE 30 MMOL/L (21-32); CHLORIDE 98 MMOL/L (98-107); CREATININE 3.7 MG/DL (0.55-1.30); POTASSIUM 3.5 MMOL/L (3.5-5.1); SODIUM 138 MMOL/L (136-145); TOTAL PROTEIN 7.2 G/DL (6.4-8.2)
[2016-12-07 06:24] LABS: URIC ACID 3.4 MG/DL (2.6-7.2)
[2016-12-07 06:58] LABS: BILIRUBIN,DIRECT 0.6 MG/DL (0.0-0.3)
[2016-12-07 07:09] LABS: MAGNESIUM 1.8 MG/DL (1.8-2.4); PHOSPHORUS 1.8 MG/DL (2.5-4.9)
[2016-12-07 07:12] LABS: CRP QUANT 16.4 mg/dL (0.00-0.90)
[2016-12-07 08:14] LABS: BAND NEUTROPHILS % (MANUAL) 6 % (0-8); EOSINOPHILS % (MANUAL) 6 % (0-3); LYMPHOCYTES % (MANUAL) 22 % (20-45); METAMYELOCYTES % 1 % (0-0); MYELOCYTES % 2 % (0-0); NEUTROPHILS % (MANUAL) 59 % (45-75); NUCLEATED RED BLOOD CELLS 2 /100 WBC; TOTAL CELLS COUNTED 100
[2016-12-07 08:15] LABS: BASOPHILS % (MANUAL) 0 % (0-2); PLATELET ESTIMATE ADEQUATE; PLATELET MORPHOLOGY NORMAL
[2016-12-07] MEDS: Phospha 250 Neutral tab GT SCH ×2 (08:22→18:05)
[2016-12-07] MEDS: Allopurinol 100mg Tab ORAL SCH (08:22)
[2016-12-07] MEDS: Revatio 20mg tab ORAL SCH ×3 (08:23→18:05)
[2016-12-07] MEDS: Docusate 100mg/10ml Liq GT SCH ×2 (08:23→18:00)
[2016-12-07] MEDS: Miralax 17gm pkt ORAL SCH (08:23)
--- NOTE | 2016-12-07 08:54 | Infectious Diseases Prog Note ---
Assessment/Plan Assessment/Plan Assesment: Leukocytosis , mild Cellulitis BLE and R arm- in the setting of chronic leg edema/venous stasis, s/ p Rx- Limited Venous duplex BLE (non diagnostic), no DVT R arm;Cellulitis resolved;Now residual venous stasis changes. -Bcx Neg Anasarca/ bilateral leg lymphedema -CXR 12/04: Improved although persistent right lung parenchymal infiltrates versus edema, over one day. -CXR 12/03:Bilateral interstitial and alveolar edema persists Afebrile, no leukocytosis VRE colonzied Anemia COPD Diastolic CHF REnal insufficiency- acute on chronic- started on HD 11/24 chronic resp failure, vent/trach dependent Gtbue pAfib pleural effusion MINA CKD GERD morbid obesity [place] resident Plan: -Continue to monitor off abx IV Vancomycin 11/11-11/12; 11/17-11/26 IV Cefepime 11/11-11/12 IV Ancef 11/12-11/28 Flagyl x1 11/11 -extremity elevation -edema management -Monitor CBC/BMP, temperatures - vent support, trach care, aspiration precautions Subjective Constitutional: Denies: no symptoms, fever, chills, fatigue, anorexia, drenching sweats, other Allergies: Coded Allergies: AMOXICILLIN (Verified Allergy, Mild, RASH, 09/30/16) PENICILLINS (Unverified Allergy, Unknown, 09/30/16) Objective Vital Signs Last 24 Hour Vital Signs Date Time Temp Pulse Resp B/P (MAP) Pulse Ox O2 Delivery O2 Flow Rate FiO2 12/07/16 08:00 97.7 90 18 112/60 95 Mechanical Ventilator 70 12/07/16 06:46 93 14 50 12/07/16 05:35 79 17 50 12/07/16 04:00 106 12/07/16 04:00 70 12/07/16 04:00 98.1 102 18 117/86 100 Mechanical Ventilator 70 12/07/16 03:37 82 16 50 12/07/16 01:52 88 14 50 12/07/16 00:00 97.3 88 18 113/74 100 Mechanical Ventilator 70 12/07/16 00:00 90 12/07/16 00:00 70 12/06/16 23:39 84 21 50 12/06/16 21:29 74 17 50 12/06/16 21:00 70 12/06/16 20:00 97.7 70 18 100/71 100 Mechanical Ventilator 70 12/06/16 20:00 73 12/06/16 19:45 75 17 50 12/06/16 19:17 Mechanical Ventilator 50 12/06/16 17:00 73 14 50 12/06/16 16:42 16 110/59 Mechanical Ventilator 70 12/06/16 16:00 80 12/06/16 16:00 97.9 76 14 110/59 100 Mechanical Ventilator 70 12/06/16 16:00 70 12/06/16 14:45 84 17 50 12/06/16 12:50 75 14 50 12/06/16 12:00 70 12/06/16 12:00 64 12/06/16 12:00 96.1 68 18 94/52 100 Mechanical Ventilator 40 12/06/16 11:10 73 14 50 Height (Feet): 5 Height (Inches): 3.00 Weight (Pounds): 165 HEENT: anicteric Respiratory/Chest: no respiratory distress Cardiovascular: regular rhythm Abdomen: no organomegaly Laboratory Tests Test 12/07/16 04:30 12/07/16 05:40 White Blood Count 10.8 K/UL (4.8-10.8) 12.4 K/UL (4.8-10.8) H Red Blood Count 1.91 M/UL (4.20-5.40) L 2.72 M/UL (4.20-5.40) L Hemoglobin 5.9 G/DL (12.0-16.0) *L 8.3 G/DL (12.0-16.0) #L Hematocrit 19.1 % (37.0-47.0) L 27.3 % (37.0-47.0) #L Mean Corpuscular Volume 100 FL (80-99) H 100 FL (80-99) H Mean Corpuscular Hemoglobin 31.2 PG (27.0-31.0) H 30.5 PG (27.0-31.0) Mean Corpuscular Hemoglobin Concent 31.1 G/DL (32.0-36.0) L 30.5 G/DL (32.0-36.0) L Red Cell Distribution Width 19.2 % (11.6-14.8) H 19.9 % (11.6-14.8) H Platelet Count 151 K/UL (150-450) 151 K/UL (150-450) Mean Platelet Volume 6.5 FL (6.5-10.1) 6.5 FL (6.5-10.1) Neutrophils (%) (Auto) % (45.0-75.0) 80.8 % (45.0-75.0) H Lymphocytes (%) (Auto) % (20.0-45.0) 8.2 % (20.0-45.0) L Monocytes (%) (Auto) % (1.0-10.0) 8.7 % (1.0-10.0) Eosinophils (%) (Auto) % (0.0-3.0) 1.4 % (0.0-3.0) Basophils (%) (Auto) % (0.0-2.0) 0.9 % (0.0-2.0) Differential Total Cells Counted 100 Neutrophils % (Manual) 59 % (45-75) Lymphocytes % (Manual) 22 % (20-45) Monocytes % (Manual) 4 % (1-10) Eosinophils % (Manual) 6 % (0-3) H Basophils % (Manual) 0 % (0-2) Metamyelocytes % 1 % (0-0) H Myelocytes % 2 % (0-0) H Band Neutrophils 6 % (0-8) Nucleated Red Blood Cells 2 /100 WBC Platelet Estimate Adequate Platelet Morphology Normal Sodium Level 138 MMOL/L (136-145) Potassium Level 3.5 MMOL/L (3.5-5.1) Chloride Level 98 MMOL/L (98-107) Carbon Dioxide Level 30 MMOL/L (21-32) Anion Gap 11 mmol/L (5-15) Blood Urea Nitrogen 25 mg/dL (7-18) H Creatinine 3.7 MG/DL (0.55-1.30) H Estimat Glomerular Filtration Rate mL/min (>60) Glucose Level 141 MG/DL (74-106) H Uric Acid 3.4 MG/DL (2.6-7.2) Calcium Level 8.7 MG/DL (8.5-10.1) Phosphorus Level 1.8 MG/DL (2.5-4.9) L Magnesium Level 1.8 MG/DL (1.8-2.4) Total Bilirubin 1.2 MG/DL (0.2-1.0) H Direct Bilirubin 0.6 MG/DL (0.0-0.3) H Aspartate Amino Transf (AST/SGOT) 19 U/L (15-37) Alanine Aminotransferase (ALT/SGPT) < 6 U/L (12-78) L Alkaline Phosphatase 99 U/L (46-116) C-Reactive Protein, Quantitative 16.4 mg/dL (0.00-0.90) H Pro-B-Type Natriuretic Peptide > 02253 pg/mL (0-125) H Total Protein 7.2 G/DL (6.4-8.2) Albumin 2.0 G/DL (3.4-5.0) L Globulin 5.2 g/dL Albumin/Globulin Ratio 0.4 (1.0-2.7) L Current Medications Medications (Trade) Dose Ordered Sig/Kalyn Route PRN Reason Start Time Stop Time Status Last Admin Dose Admin Acetaminophen (Tylenol) 650 mg Q4H PRN ORAL Mild Pain/Temp > 100.5 12/03/16 15:00 12/12/16 14:59 Allopurinol (Zyloprim) 200 mg DAILY ORAL 12/04/16 09:00 01/02/17 08:59 12/07/16 08:22 Chlorhexidine Gluconate (Marni-Hex 2%) 1 applic Q24H TOPIC 12/03/16 20:00 12/27/16 19:59 12/06/16 20:26 Diphenhydramine HCl (Benadryl) 25 mg Q6H PRN IVP Itching 12/03/16 15:00 12/19/16 14:59 Docusate Sodium (Colace) 100 mg TWICE A DAY GT 12/04/16 09:00 01/03/17 08:59 12/06/16 17:45 Epoetin Santos (Procrit (for non ESRD use)) 10,000 units TUE-TUE-TUE SUBQ 12/03/16 21:00 12/17/16 20:59 12/06/16 21:34 Folic Acid (Folate) 1 mg DAILY ORAL 12/04/16 09:00 12/12/16 08:59 12/07/16 08:23 Gabapentin (Neurontin) 600 mg BID ORAL 12/03/16 18:00 12/14/16 08:59 12/07/16 08:23 Midodrine (Pro-Amatine) 10 mg EVERY 8 HOURS GT 12/05/16 22:00 01/04/17 21:59 12/07/16 05:03 Phosphorus (Phospha 250 Neutral) 500 mg THREE TIMES A DAY GT 12/06/16 13:00 12/07/16 09:01 12/07/16 08:22 Polyethylene Glycol (Miralax) 17 gm DAILY ORAL 12/04/16 09:00 12/12/16 08:59 12/06/16 08:57 Pravastatin Sodium (Pravachol) 20 mg BEDTIME ORAL 12/03/16 21:00 12/12/16 20:59 12/06/16 20:26 Ranitidine HCl (Zantac) 150 mg TWICE A DAY GT 12/05/16 18:00 01/04/17 17:59 12/07/16 08:22 Sildenafil Citrate (Revatio) 20 mg THREE TIMES A DAY ORAL 12/03/16 18:00 12/12/16 08:59 12/07/16 08:23 LINDSEY HILL M.D. Dec 07, 2016 08:54
--- NOTE | 2016-12-07 12:05 | Pulmonology Progress Note ---
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: nurses, case maker Subjective ROS Limited/Unobtainable: No Constitutional: Reports: no symptoms HEENT: Repors: no symptoms Allergies: Coded Allergies: AMOXICILLIN (Verified Allergy, Mild, RASH, 09/30/16) PENICILLINS (Unverified Allergy, Unknown, 09/30/16) Objective Last 24 Hour Vital Signs Date Time Temp Pulse Resp B/P (MAP) Pulse Ox O2 Delivery O2 Flow Rate FiO2 12/07/16 10:39 88 16 50 12/07/16 09:05 83 16 50 12/07/16 08:00 97.7 90 18 112/60 95 Mechanical Ventilator 70 12/07/16 08:00 70 12/07/16 07:22 79 12/07/16 06:46 93 14 50 12/07/16 05:35 79 17 50 12/07/16 04:00 106 12/07/16 04:00 70 12/07/16 04:00 98.1 102 18 117/86 100 Mechanical Ventilator 70 12/07/16 03:37 82 16 50 12/07/16 01:52 88 14 50 12/07/16 00:00 97.3 88 18 113/74 100 Mechanical Ventilator 70 12/07/16 00:00 90 12/07/16 00:00 70 12/06/16 23:39 84 21 50 12/06/16 21:29 74 17 50 12/06/16 21:00 70 12/06/16 20:00 97.7 70 18 100/71 100 Mechanical Ventilator 70 12/06/16 20:00 73 12/06/16 19:45 75 17 50 12/06/16 19:17 Mechanical Ventilator 50 12/06/16 17:00 73 14 50 12/06/16 16:42 16 110/59 Mechanical Ventilator 70 12/06/16 16:00 80 12/06/16 16:00 97.9 76 14 110/59 100 Mechanical Ventilator 70 12/06/16 16:00 70 12/06/16 14:45 84 17 50 12/06/16 12:50 75 14 50 Intake and Output 12/07/16 12/08/16 19:00 07:00 Intake Total 170 ml Balance 170 ml Free Water 50 ml Tube Feeding 120 ml General Appearance: WD/WN HEENT: normocephalic, atraumatic Respiratory/Chest: chest wall non-tender, lungs clear Cardiovascular: normal peripheral pulses, normal rate Abdomen: soft, non tender, no organomegaly Genitourinary: normal external genitalia Laboratory Tests 12/07/16 04:30: White Blood Count 10.8, Red Blood Count 1.91L, Hemoglobin 5.9*L, Hematocrit 19.1L, Mean Corpuscular Volume 100H, Mean Corpuscular Hemoglobin 31.2H, Mean Corpuscular Hemoglobin Concent 31.1L, Red Cell Distribution Width 19.2H, Platelet Count 151, Mean Platelet Volume 6.5, Neutrophils (%) (Auto) , Lymphocytes (%) (Auto) , Monocytes (%) (Auto) , Eosinophils (%) (Auto) , Basophils (%) (Auto) , Differential Total Cells Counted 100, Neutrophils % ( Manual) 59, Lymphocytes % (Manual) 22, Monocytes % (Manual) 4, Eosinophils % ( Manual) 6H, Basophils % (Manual) 0, Metamyelocytes % 1H, Myelocytes % 2H, Band Neutrophils 6, Nucleated Red Blood Cells 2, Platelet Estimate Adequate, Platelet Morphology Normal, Sodium Level 138, Potassium Level 3.5, Chloride Level 98, Carbon Dioxide Level 30, Anion Gap 11, Blood Urea Nitrogen 25H, Creatinine 3.7H, Estimat Glomerular Filtration Rate , Glucose Level 141H, Uric Acid 3.4, Calcium Level 8.7, Phosphorus Level 1.8L, Magnesium Level 1.8, Total Bilirubin 1.2H, Direct Bilirubin 0.6H, Aspartate Amino Transf (AST/SGOT) 19, Alanine Aminotransferase (ALT/SGPT) < 6L, Alkaline Phosphatase 99, C-Reactive Protein, Quantitative 16.4H, Pro-B-Type Natriuretic Peptide > 33049Y, Total Protein 7.2, Albumin 2.0L, Globulin 5.2, Albumin/Globulin Ratio 0.4L 12/07/16 05:40: White Blood Count 12.4H, Red Blood Count 2.72L, Hemoglobin 8.3#L, Hematocrit 27.3#L, Mean Corpuscular Volume 100H, Mean Corpuscular Hemoglobin 30.5, Mean Corpuscular Hemoglobin Concent 30.5L, Red Cell Distribution Width 19.9H, Platelet Count 151, Mean Platelet Volume 6.5, Neutrophils (%) (Auto) 80.8H, Lymphocytes (%) (Auto) 8.2L, Monocytes (%) (Auto) 8.7, Eosinophils (%) (Auto) 1.4, Basophils (%) (Auto) 0.9 Current Medications Medications (Trade) Dose Ordered Sig/Kalyn Route PRN Reason Start Time Stop Time Status Last Admin Dose Admin Acetaminophen (Tylenol) 650 mg Q4H PRN ORAL Mild Pain/Temp > 100.5 12/03/16 15:00 12/12/16 14:59 12/07/16 09:17 Allopurinol (Zyloprim) 200 mg DAILY ORAL 12/04/16 09:00 01/02/17 08:59 12/07/16 08:22 Chlorhexidine Gluconate (Marni-Hex 2%) 1 applic Q24H TOPIC 12/03/16 20:00 12/27/16 19:59 12/06/16 20:26 Diphenhydramine HCl (Benadryl) 25 mg Q6H PRN IVP Itching 12/03/16 15:00 12/19/16 14:59 Docusate Sodium (Colace) 100 mg TWICE A DAY GT 12/04/16 09:00 01/03/17 08:59 12/06/16 17:45 Epoetin Santos (Procrit (for non ESRD use)) 10,000 units TUE-TUE-TUE SUBQ 12/03/16 21:00 12/17/16 20:59 12/06/16 21:34 Folic Acid (Folate) 1 mg DAILY ORAL 12/04/16 09:00 12/12/16 08:59 12/07/16 08:23 Gabapentin (Neurontin) 600 mg BID ORAL 12/03/16 18:00 12/14/16 08:59 12/07/16 08:23 Midodrine (Pro-Amatine) 10 mg EVERY 8 HOURS GT 12/05/16 22:00 01/04/17 21:59 12/07/16 05:03 Polyethylene Glycol (Miralax) 17 gm DAILY ORAL 12/04/16 09:00 12/12/16 08:59 12/06/16 08:57 Pravastatin Sodium (Pravachol) 20 mg BEDTIME ORAL 12/03/16 21:00 12/12/16 20:59 12/06/16 20:26 Ranitidine HCl (Zantac) 150 mg TWICE A DAY GT 12/05/16 18:00 01/04/17 17:59 12/07/16 08:22 Sildenafil Citrate (Revatio) 20 mg THREE TIMES A DAY ORAL 12/03/16 18:00 12/12/16 08:59 12/07/16 08:23 ARASH MIRANDA Dec 07, 2016 12:05
--- NOTE | 2016-12-07 12:32 | GI Progress Note ---
Assessment/Plan Problems: (1) Positive occult stool blood test ICD Codes: R19.5 - Other fecal abnormalities SNOMED: 12571855, 675086954 (2) Morbid obesity ICD Codes: E66.01 - Morbid (severe) obesity due to excess calories SNOMED: 348257376, 74464746628848 (3) Anemia ICD Codes: D64.9 - Anemia, unspecified SNOMED: 637910917 (4) PEG (percutaneous endoscopic gastrostomy) adjustment/replacement/removal ICD Codes: Z43.1 - Encounter for attention to gastrostomy SNOMED: 943011255, 202820137 Status: progressing Status Narrative 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 Dr. Noriega. Assessment/Plan s/p PEG GTF at 40 cc /o and tolerated fu pulmonary recs bowel regime ppi fu labs Subjective Subjective limited Objective Last 24 Hour Vital Signs Date Time Temp Pulse Resp B/P (MAP) Pulse Ox O2 Delivery O2 Flow Rate FiO2 12/07/16 12:26 Mechanical Ventilator 50 12/07/16 10:39 88 16 50 12/07/16 09:05 83 16 50 12/07/16 08:00 97.7 90 18 112/60 95 Mechanical Ventilator 70 12/07/16 08:00 70 12/07/16 07:22 79 12/07/16 06:46 93 14 50 12/07/16 05:35 79 17 50 12/07/16 04:00 106 12/07/16 04:00 70 12/07/16 04:00 98.1 102 18 117/86 100 Mechanical Ventilator 70 12/07/16 03:37 82 16 50 12/07/16 01:52 88 14 50 12/07/16 00:00 97.3 88 18 113/74 100 Mechanical Ventilator 70 12/07/16 00:00 90 12/07/16 00:00 70 12/06/16 23:39 84 21 50 12/06/16 21:29 74 17 50 12/06/16 21:00 70 12/06/16 20:00 97.7 70 18 100/71 100 Mechanical Ventilator 70 12/06/16 20:00 73 12/06/16 19:45 75 17 50 12/06/16 19:17 Mechanical Ventilator 50 12/06/16 17:00 73 14 50 12/06/16 16:42 16 110/59 Mechanical Ventilator 70 12/06/16 16:00 80 12/06/16 16:00 97.9 76 14 110/59 100 Mechanical Ventilator 70 12/06/16 16:00 70 12/06/16 14:45 84 17 50 12/06/16 12:50 75 14 50 Intake and Output 12/07/16 12/08/16 19:00 07:00 Intake Total 170 ml Output Total 2870 ml Balance -2700 ml Free Water 50 ml Tube Feeding 120 ml Hemodialysis UF 2870 ml Laboratory Tests Test 12/07/16 04:30 12/07/16 05:40 White Blood Count 10.8 K/UL (4.8-10.8) 12.4 K/UL (4.8-10.8) H Red Blood Count 1.91 M/UL (4.20-5.40) L 2.72 M/UL (4.20-5.40) L Hemoglobin 5.9 G/DL (12.0-16.0) *L 8.3 G/DL (12.0-16.0) #L Hematocrit 19.1 % (37.0-47.0) L 27.3 % (37.0-47.0) #L Mean Corpuscular Volume 100 FL (80-99) H 100 FL (80-99) H Mean Corpuscular Hemoglobin 31.2 PG (27.0-31.0) H 30.5 PG (27.0-31.0) Mean Corpuscular Hemoglobin Concent 31.1 G/DL (32.0-36.0) L 30.5 G/DL (32.0-36.0) L Red Cell Distribution Width 19.2 % (11.6-14.8) H 19.9 % (11.6-14.8) H Platelet Count 151 K/UL (150-450) 151 K/UL (150-450) Mean Platelet Volume 6.5 FL (6.5-10.1) 6.5 FL (6.5-10.1) Neutrophils (%) (Auto) % (45.0-75.0) 80.8 % (45.0-75.0) H Lymphocytes (%) (Auto) % (20.0-45.0) 8.2 % (20.0-45.0) L Monocytes (%) (Auto) % (1.0-10.0) 8.7 % (1.0-10.0) Eosinophils (%) (Auto) % (0.0-3.0) 1.4 % (0.0-3.0) Basophils (%) (Auto) % (0.0-2.0) 0.9 % (0.0-2.0) Differential Total Cells Counted 100 Neutrophils % (Manual) 59 % (45-75) Lymphocytes % (Manual) 22 % (20-45) Monocytes % (Manual) 4 % (1-10) Eosinophils % (Manual) 6 % (0-3) H Basophils % (Manual) 0 % (0-2) Metamyelocytes % 1 % (0-0) H Myelocytes % 2 % (0-0) H Band Neutrophils 6 % (0-8) Nucleated Red Blood Cells 2 /100 WBC Platelet Estimate Adequate Platelet Morphology Normal Sodium Level 138 MMOL/L (136-145) Potassium Level 3.5 MMOL/L (3.5-5.1) Chloride Level 98 MMOL/L (98-107) Carbon Dioxide Level 30 MMOL/L (21-32) Anion Gap 11 mmol/L (5-15) Blood Urea Nitrogen 25 mg/dL (7-18) H Creatinine 3.7 MG/DL (0.55-1.30) H Estimat Glomerular Filtration Rate mL/min (>60) Glucose Level 141 MG/DL (74-106) H Uric Acid 3.4 MG/DL (2.6-7.2) Calcium Level 8.7 MG/DL (8.5-10.1) Phosphorus Level 1.8 MG/DL (2.5-4.9) L Magnesium Level 1.8 MG/DL (1.8-2.4) Total Bilirubin 1.2 MG/DL (0.2-1.0) H Direct Bilirubin 0.6 MG/DL (0.0-0.3) H Aspartate Amino Transf (AST/SGOT) 19 U/L (15-37) Alanine Aminotransferase (ALT/SGPT) < 6 U/L (12-78) L Alkaline Phosphatase 99 U/L (46-116) C-Reactive Protein, Quantitative 16.4 mg/dL (0.00-0.90) H Pro-B-Type Natriuretic Peptide > 52988 pg/mL (0-125) H Total Protein 7.2 G/DL (6.4-8.2) Albumin 2.0 G/DL (3.4-5.0) L Globulin 5.2 g/dL Albumin/Globulin Ratio 0.4 (1.0-2.7) L Height (Feet): 5 Height (Inches): 3.00 Weight (Pounds): 165 General Appearance: WD/WN, no apparent distress, alert, morbidly obese Cardiovascular: normal rate Respiratory/Chest: no respiratory distress, other - trach to vent Abdominal Exam: normal bowel sounds, non tender, soft, GT site - c/d/i Extremities: normal range of motion, non-tender Kateryna Sherman N.P. Dec 07, 2016 12:32
[2016-12-07] MEDS ORDERED: NS 275ml ONE (13:46)
[2016-12-07] MEDS ORDERED: Tubing IV Secondary IV ONE (13:46)
--- NOTE | 2016-12-07 15:00 | Cardiology Progress Note ---
Assessment/Plan Assessment/Plan 1. Permanent atrial fibrillation. 2. Chronic respiratory failure, on a mechanical ventilator. 3. Cor pulmonale. 4. Pulmonary hypertension. 5. Acute renal failure, now on dialysis. 6. Anemia. 7. Significant edema. 8. Hypoalbuminemia. 9. stool ob + bp ok today on vent remain in afib stool now ob + no anticoagulation for now toleratign g tube feeding anemic noted Subjective ROS Limited/Unobtainable: Yes Subjective on the vent awake Objective Last 24 Hour Vital Signs Date Time Temp Pulse Resp B/P (MAP) Pulse Ox O2 Delivery O2 Flow Rate FiO2 12/07/16 13:28 93 18 50 12/07/16 12:29 96 20 99/51 Mechanical Ventilator 50 12/07/16 12:26 Mechanical Ventilator 50 12/07/16 12:00 75 12/07/16 12:00 70 12/07/16 12:00 98.1 85 18 111/59 100 Mechanical Ventilator 70 12/07/16 10:39 88 16 50 12/07/16 09:05 83 16 50 12/07/16 08:00 97.7 90 18 112/60 95 Mechanical Ventilator 70 12/07/16 08:00 70 12/07/16 07:22 79 12/07/16 06:46 93 14 50 12/07/16 05:35 79 17 50 12/07/16 04:00 106 12/07/16 04:00 70 12/07/16 04:00 98.1 102 18 117/86 100 Mechanical Ventilator 70 12/07/16 03:37 82 16 50 12/07/16 01:52 88 14 50 12/07/16 00:00 97.3 88 18 113/74 100 Mechanical Ventilator 70 12/07/16 00:00 90 12/07/16 00:00 70 12/06/16 23:39 84 21 50 12/06/16 21:29 74 17 50 12/06/16 21:00 70 12/06/16 20:00 97.7 70 18 100/71 100 Mechanical Ventilator 70 12/06/16 20:00 73 12/06/16 19:45 75 17 50 12/06/16 19:17 Mechanical Ventilator 50 12/06/16 17:00 73 14 50 12/06/16 16:42 16 110/59 Mechanical Ventilator 70 10/30/17 16:00 80 12/06/16 16:00 97.9 76 14 110/59 100 Mechanical Ventilator 70 12/06/16 16:00 70 General Appearance: no apparent distress Intake and Output 12/07/16 12/08/16 19:00 07:00 Intake Total 380 ml Output Total 2870 ml Balance -2490 ml Free Water 100 ml Tube Feeding 280 ml Hemodialysis UF 2870 ml # Bowel Movements 1 Laboratory Tests Test 12/07/16 04:30 12/07/16 05:40 White Blood Count 10.8 K/UL (4.8-10.8) 12.4 K/UL (4.8-10.8) H Red Blood Count 1.91 M/UL (4.20-5.40) L 2.72 M/UL (4.20-5.40) L Hemoglobin 5.9 G/DL (12.0-16.0) *L 8.3 G/DL (12.0-16.0) #L Hematocrit 19.1 % (37.0-47.0) L 27.3 % (37.0-47.0) #L Mean Corpuscular Volume 100 FL (80-99) H 100 FL (80-99) H Mean Corpuscular Hemoglobin 31.2 PG (27.0-31.0) H 30.5 PG (27.0-31.0) Mean Corpuscular Hemoglobin Concent 31.1 G/DL (32.0-36.0) L 30.5 G/DL (32.0-36.0) L Red Cell Distribution Width 19.2 % (11.6-14.8) H 19.9 % (11.6-14.8) H Platelet Count 151 K/UL (150-450) 151 K/UL (150-450) Mean Platelet Volume 6.5 FL (6.5-10.1) 6.5 FL (6.5-10.1) Neutrophils (%) (Auto) % (45.0-75.0) 80.8 % (45.0-75.0) H Lymphocytes (%) (Auto) % (20.0-45.0) 8.2 % (20.0-45.0) L Monocytes (%) (Auto) % (1.0-10.0) 8.7 % (1.0-10.0) Eosinophils (%) (Auto) % (0.0-3.0) 1.4 % (0.0-3.0) Basophils (%) (Auto) % (0.0-2.0) 0.9 % (0.0-2.0) Differential Total Cells Counted 100 Neutrophils % (Manual) 59 % (45-75) Lymphocytes % (Manual) 22 % (20-45) Monocytes % (Manual) 4 % (1-10) Eosinophils % (Manual) 6 % (0-3) H Basophils % (Manual) 0 % (0-2) Metamyelocytes % 1 % (0-0) H Myelocytes % 2 % (0-0) H Band Neutrophils 6 % (0-8) Nucleated Red Blood Cells 2 /100 WBC Platelet Estimate Adequate Platelet Morphology Normal Sodium Level 138 MMOL/L (136-145) Potassium Level 3.5 MMOL/L (3.5-5.1) Chloride Level 98 MMOL/L (98-107) Carbon Dioxide Level 30 MMOL/L (21-32) Anion Gap 11 mmol/L (5-15) Blood Urea Nitrogen 25 mg/dL (7-18) H Creatinine 3.7 MG/DL (0.55-1.30) H Estimat Glomerular Filtration Rate mL/min (>60) Glucose Level 141 MG/DL (74-106) H Uric Acid 3.4 MG/DL (2.6-7.2) Calcium Level 8.7 MG/DL (8.5-10.1) Phosphorus Level 1.8 MG/DL (2.5-4.9) L Magnesium Level 1.8 MG/DL (1.8-2.4) Total Bilirubin 1.2 MG/DL (0.2-1.0) H Direct Bilirubin 0.6 MG/DL (0.0-0.3) H Aspartate Amino Transf (AST/SGOT) 19 U/L (15-37) Alanine Aminotransferase (ALT/SGPT) < 6 U/L (12-78) L Alkaline Phosphatase 99 U/L (46-116) C-Reactive Protein, Quantitative 16.4 mg/dL (0.00-0.90) H Pro-B-Type Natriuretic Peptide > 45921 pg/mL (0-125) H Total Protein 7.2 G/DL (6.4-8.2) Albumin 2.0 G/DL (3.4-5.0) L Globulin 5.2 g/dL Albumin/Globulin Ratio 0.4 (1.0-2.7) L BRIANA TELLES Dec 07, 2016 15:00
--- NOTE | 2016-12-07 15:47 | General Progress Note ---
Assessment/Plan Status: unchanged Assessment/Plan Cellulitis BLE and R arm- in the setting of chronic leg edema- r/o DVT Anasarca/ bilateral leg lymphedema CKD- and acute renal failure - Acute respiratory failure s/p Trach Obese COPD , CHF, Diastolic MINA UTI Anemia GI Bleed, GI bleeding At Fib Pulm HTN h/o Low B12 plan: Now has PEG HD 12/08 K supplement as needed on EPOGEN 24 H urine collection in process: CrCl 6 Monitor renal parameters- optimize cardiac and pulm status avoid nephrotoxics- pulmonary support- transfuse as needed ? DC planning post PEG Subjective ROS Limited/Unobtainable: No Constitutional: Reports: malaise, weakness Allergies: Coded Allergies: AMOXICILLIN (Verified Allergy, Mild, RASH, 09/30/16) PENICILLINS (Unverified Allergy, Unknown, 09/30/16) Objective Last 24 Hour Vital Signs Date Time Temp Pulse Resp B/P (MAP) Pulse Ox O2 Delivery O2 Flow Rate FiO2 12/07/16 15:11 65 14 50 12/07/16 13:28 93 18 50 12/07/16 12:29 96 20 99/51 Mechanical Ventilator 50 12/07/16 12:26 Mechanical Ventilator 50 12/07/16 12:00 75 12/07/16 12:00 70 12/07/16 12:00 98.1 85 18 111/59 100 Mechanical Ventilator 70 12/07/16 10:39 88 16 50 12/07/16 09:05 83 16 50 12/07/16 08:00 97.7 90 18 112/60 95 Mechanical Ventilator 70 12/07/16 08:00 70 12/07/16 07:22 79 12/07/16 06:46 93 14 50 12/07/16 05:35 79 17 50 12/07/16 04:00 106 12/07/16 04:00 70 12/07/16 04:00 98.1 102 18 117/86 100 Mechanical Ventilator 70 12/07/16 03:37 82 16 50 12/07/16 01:52 88 14 50 12/07/16 00:00 97.3 88 18 113/74 100 Mechanical Ventilator 70 12/07/16 00:00 90 12/07/16 00:00 70 12/06/16 23:39 84 21 50 12/06/16 21:29 74 17 50 12/06/16 21:00 70 12/06/16 20:00 97.7 70 18 100/71 100 Mechanical Ventilator 70 12/06/16 20:00 73 12/06/16 19:45 75 17 50 12/06/16 19:17 Mechanical Ventilator 50 12/06/16 17:00 73 14 50 12/06/16 16:42 16 110/59 Mechanical Ventilator 70 12/06/16 16:00 80 12/06/16 16:00 97.9 76 14 110/59 100 Mechanical Ventilator 70 12/06/16 16:00 70 Intake and Output 12/07/16 12/08/16 19:00 07:00 Intake Total 420 ml Output Total 3070 ml Balance -2650 ml Free Water 100 ml Tube Feeding 320 ml Stool Total 200 ml Hemodialysis UF 2870 ml # Bowel Movements 2 Laboratory Tests 12/07/16 04:30: White Blood Count 10.8, Red Blood Count 1.91L, Hemoglobin 5.9*L, Hematocrit 19.1L, Mean Corpuscular Volume 100H, Mean Corpuscular Hemoglobin 31.2H, Mean Corpuscular Hemoglobin Concent 31.1L, Red Cell Distribution Width 19.2H, Platelet Count 151, Mean Platelet Volume 6.5, Neutrophils (%) (Auto) , Lymphocytes (%) (Auto) , Monocytes (%) (Auto) , Eosinophils (%) (Auto) , Basophils (%) (Auto) , Differential Total Cells Counted 100, Neutrophils % ( Manual) 59, Lymphocytes % (Manual) 22, Monocytes % (Manual) 4, Eosinophils % ( Manual) 6H, Basophils % (Manual) 0, Metamyelocytes % 1H, Myelocytes % 2H, Band Neutrophils 6, Nucleated Red Blood Cells 2, Platelet Estimate Adequate, Platelet Morphology Normal, Sodium Level 138, Potassium Level 3.5, Chloride Level 98, Carbon Dioxide Level 30, Anion Gap 11, Blood Urea Nitrogen 25H, Creatinine 3.7H, Estimat Glomerular Filtration Rate , Glucose Level 141H, Uric Acid 3.4, Calcium Level 8.7, Phosphorus Level 1.8L, Magnesium Level 1.8, Total Bilirubin 1.2H, Direct Bilirubin 0.6H, Aspartate Amino Transf (AST/SGOT) 19, Alanine Aminotransferase (ALT/SGPT) < 6L, Alkaline Phosphatase 99, C-Reactive Protein, Quantitative 16.4H, Pro-B-Type Natriuretic Peptide > 74781O, Total Protein 7.2, Albumin 2.0L, Globulin 5.2, Albumin/Globulin Ratio 0.4L 12/07/16 05:40: White Blood Count 12.4H, Red Blood Count 2.72L, Hemoglobin 8.3#L, Hematocrit 27.3#L, Mean Corpuscular Volume 100H, Mean Corpuscular Hemoglobin 30.5, Mean Corpuscular Hemoglobin Concent 30.5L, Red Cell Distribution Width 19.9H, Platelet Count 151, Mean Platelet Volume 6.5, Neutrophils (%) (Auto) 80.8H, Lymphocytes (%) (Auto) 8.2L, Monocytes (%) (Auto) 8.7, Eosinophils (%) (Auto) 1.4, Basophils (%) (Auto) 0.9 Height (Feet): 5 Height (Inches): 3.00 Weight (Pounds): 165 General Appearance: other - trach- vent Cardiovascular: tachycardia Respiratory/Chest: decreased breath sounds Abdomen: soft Edema: 1+ Arm (L), 1+ Arm (R), 1+ Leg (L), 1+ Leg (R), 1+ Pedal (L), 1+ Pedal ( R), 1+ Generalized Objective much less edematous COURTNEY LOPEZ Dec 07, 2016 15:47
--- NOTE | 2016-12-07 17:33 | General Progress Note ---
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 Will give Vitamin K and then repeat mixing study. --> results pending #. Anemia secondary to chronic disease. Continue to closely monitor. Work up reviewed --> s/p transfusion. watch counts, transfuse if hgb is below 8 # Positive occult blood. r/o gi bleed. gi following #. Anemia of kidney disease. Nephrology service following #. PEG tube placement #. Chronic ventilator dependent #. Permanent atrial fibrillation. #. Cellulitis and chronic lymphedema of the bilateral lower extremities. #. Congestive heart failure. Subjective ROS Limited/Unobtainable: Yes Allergies: Coded Allergies: AMOXICILLIN (Verified Allergy, Mild, RASH, 09/30/16) PENICILLINS (Unverified Allergy, Unknown, 09/30/16) Subjective on ventilator Objective Last 24 Hour Vital Signs Date Time Temp Pulse Resp B/P (MAP) Pulse Ox O2 Delivery O2 Flow Rate FiO2 12/07/16 16:38 76 15 50 12/07/16 16:00 96.6 76 20 108/63 100 Mechanical Ventilator 70 12/07/16 16:00 69 12/07/16 16:00 70 12/07/16 15:11 65 14 50 12/07/16 13:28 93 18 50 12/07/16 12:29 96 20 99/51 Mechanical Ventilator 50 12/07/16 12:26 Mechanical Ventilator 50 12/07/16 12:00 75 12/07/16 12:00 70 12/07/16 12:00 98.1 85 18 111/59 100 Mechanical Ventilator 70 12/07/16 10:39 88 16 50 12/07/16 09:05 83 16 50 12/07/16 08:00 97.7 90 18 112/60 95 Mechanical Ventilator 70 12/07/16 08:00 70 12/07/16 07:22 79 12/07/16 06:46 93 14 50 12/07/16 05:35 79 17 50 12/07/16 04:00 106 12/07/16 04:00 70 12/07/16 04:00 98.1 102 18 117/86 100 Mechanical Ventilator 70 12/07/16 03:37 82 16 50 12/07/16 01:52 88 14 50 12/07/16 00:00 97.3 88 18 113/74 100 Mechanical Ventilator 70 12/07/16 00:00 90 12/07/16 00:00 70 12/06/16 23:39 84 21 50 12/06/16 21:29 74 17 50 12/06/16 21:00 70 12/06/16 20:00 97.7 70 18 100/71 100 Mechanical Ventilator 70 12/06/16 20:00 73 12/06/16 19:45 75 17 50 12/06/16 19:17 Mechanical Ventilator 50 Intake and Output 12/07/16 12/08/16 19:00 07:00 Intake Total 500 ml Output Total 200 ml Balance 300 ml Free Water 100 ml Tube Feeding 400 ml Stool Total 200 ml # Bowel Movements 2 Laboratory Tests 12/07/16 04:30: White Blood Count 10.8, Red Blood Count 1.91L, Hemoglobin 5.9*L, Hematocrit 19.1L, Mean Corpuscular Volume 100H, Mean Corpuscular Hemoglobin 31.2H, Mean Corpuscular Hemoglobin Concent 31.1L, Red Cell Distribution Width 19.2H, Platelet Count 151, Mean Platelet Volume 6.5, Neutrophils (%) (Auto) , Lymphocytes (%) (Auto) , Monocytes (%) (Auto) , Eosinophils (%) (Auto) , Basophils (%) (Auto) , Differential Total Cells Counted 100, Neutrophils % ( Manual) 59, Lymphocytes % (Manual) 22, Monocytes % (Manual) 4, Eosinophils % ( Manual) 6H, Basophils % (Manual) 0, Metamyelocytes % 1H, Myelocytes % 2H, Band Neutrophils 6, Nucleated Red Blood Cells 2, Platelet Estimate Adequate, Platelet Morphology Normal, Sodium Level 138, Potassium Level 3.5, Chloride Level 98, Carbon Dioxide Level 30, Anion Gap 11, Blood Urea Nitrogen 25H, Creatinine 3.7H, Estimat Glomerular Filtration Rate , Glucose Level 141H, Uric Acid 3.4, Calcium Level 8.7, Phosphorus Level 1.8L, Magnesium Level 1.8, Total Bilirubin 1.2H, Direct Bilirubin 0.6H, Aspartate Amino Transf (AST/SGOT) 19, Alanine Aminotransferase (ALT/SGPT) < 6L, Alkaline Phosphatase 99, C-Reactive Protein, Quantitative 16.4H, Pro-B-Type Natriuretic Peptide > [id number], Total Protein 7.2, Albumin 2.0L, Globulin 5.2, Albumin/Globulin Ratio 0.4L 12/07/16 05:40: White Blood Count 12.4H, Red Blood Count 2.72L, Hemoglobin 8.3#L, Hematocrit 27.3#L, Mean Corpuscular Volume 100H, Mean Corpuscular Hemoglobin 30.5, Mean Corpuscular Hemoglobin Concent 30.5L, Red Cell Distribution Width 19.9H, Platelet Count 151, Mean Platelet Volume 6.5, Neutrophils (%) (Auto) 80.8H, Lymphocytes (%) (Auto) 8.2L, Monocytes (%) (Auto) 8.7, Eosinophils (%) (Auto) 1.4, Basophils (%) (Auto) 0.9 Height (Feet): 5 Height (Inches): 3.00 Weight (Pounds): 165 General Appearance: no apparent distress EENT: normal ENT inspection Neck: normal alignment Respiratory/Chest: chest wall non-tender, decreased breath sounds Extremities: non-tender Serafin Haines Dec 07, 2016 17:33
[2016-12-07] MEDS: Dyna-Hex 2% Top Sol 2oz TOPIC SCH (20:41)
--- NOTE | 2016-12-07 22:31 | General Progress Note ---
Assessment/Plan Assessment/Plan This is a 76-year-old, morbidly obese female, admitted with anasarca and cellulitis of the lower leg. The patient was admitted to the directr observation unit on the monitor with the following medical problems. now transfered to icu as of 11-14-16, co of pruritis 1. Anasarca. She appears to be markedly swollen. She will need diuresis. Place the patient on Lasix 20 mg intravenous for now q.12 hours. Cardiology and Pulmonary on the case. We will follow orders. Check laboratory studies daily. Lasix drip was discontinued in am, HD started 2. Chronic hypercapnic respiratory failure. Continue with vent support per Pulmonary. will discuss with pulmonary regarding trach issues 3 anemia. s./p transfusion of PRBC Continue monitoring CBC daily. patient to start Procrit per nephrology 4. Pulmonary hypertension. hold Eliquis 2.5 mg twice a day until trach is refitted 5. Chronic kidney disease. We will monitor BUN and creatinine. Gentle diuresis for now. Nephrology has been consulted. further workup per nephrology. avoid nephrotoxic agents HD to start soon 6. DVT prophylaxis. The patient is on Eliquis. The patient is Full 7. nutrition: patient didn't tolerate NGT placement, patient is now s/p PEG placement, tolerating tube feeding 8. Alkalosis: resolved 9. Generalized anxiety: Ativan prn, counselled for 15min 10. constipation: prn enema, continue with Colace and MiraLAX had revision of trach on 11-23-16 Benadryl 25 mg iv q 6 prn itching tolerating tube feeding continue HD per nephrology trach revision done by Dr. Powell discussed with nursing staff HD per nephrology in am continue current care Subjective Date patient seen: Dec 07, 2016 Allergies: Coded Allergies: AMOXICILLIN (Verified Allergy, Mild, RASH, 09/30/16) PENICILLINS (Unverified Allergy, Unknown, 09/30/16) All Systems: reviewed and negative except above Subjective patient had HD today 1.6 L were taken out, less cyanosis noted Objective Last 24 Hour Vital Signs Date Time Temp Pulse Resp B/P (MAP) Pulse Ox O2 Delivery O2 Flow Rate FiO2 12/07/16 21:25 75 14 50 12/07/16 20:00 67 12/07/16 20:00 50 12/07/16 19:51 97.9 70 14 101/50 100 Mechanical Ventilator 50 12/07/16 18:56 63 14 50 12/07/16 16:38 76 15 50 12/07/16 16:00 96.6 76 20 108/63 100 Mechanical Ventilator 70 12/07/16 16:00 69 12/07/16 16:00 70 12/07/16 15:11 65 14 50 12/07/16 13:28 93 18 50 12/07/16 12:29 96 20 99/51 Mechanical Ventilator 50 12/07/16 12:26 Mechanical Ventilator 50 12/07/16 12:00 75 12/07/16 12:00 70 12/07/16 12:00 98.1 85 18 111/59 100 Mechanical Ventilator 70 12/07/16 10:39 88 16 50 12/07/16 09:05 83 16 50 12/07/16 08:00 97.7 90 18 112/60 95 Mechanical Ventilator 70 12/07/16 08:00 70 12/07/16 07:22 79 12/07/16 06:46 93 14 50 12/07/16 05:35 79 17 50 12/07/16 04:00 106 12/07/16 04:00 70 12/07/16 04:00 98.1 102 18 117/86 100 Mechanical Ventilator 70 12/07/16 03:37 82 16 50 12/07/16 01:52 88 14 50 12/07/16 00:00 97.3 88 18 113/74 100 Mechanical Ventilator 70 12/07/16 00:00 90 12/07/16 00:00 70 12/06/16 23:39 84 21 50 Intake and Output 12/07/16 12/08/16 19:00 07:00 Intake Total 630 ml 140 ml Output Total 200 ml Balance 430 ml 140 ml Free Water 150 ml 30 ml Tube Feeding 480 ml 80 ml Other 30 ml Stool Total 200 ml # Bowel Movements 2 Laboratory Tests 12/07/16 04:30: White Blood Count 10.8, Red Blood Count 1.91L, Hemoglobin 5.9*L, Hematocrit 19.1L, Mean Corpuscular Volume 100H, Mean Corpuscular Hemoglobin 31.2H, Mean Corpuscular Hemoglobin Concent 31.1L, Red Cell Distribution Width 19.2H, Platelet Count 151, Mean Platelet Volume 6.5, Neutrophils (%) (Auto) , Lymphocytes (%) (Auto) , Monocytes (%) (Auto) , Eosinophils (%) (Auto) , Basophils (%) (Auto) , Differential Total Cells Counted 100, Neutrophils % ( Manual) 59, Lymphocytes % (Manual) 22, Monocytes % (Manual) 4, Eosinophils % ( Manual) 6H, Basophils % (Manual) 0, Metamyelocytes % 1H, Myelocytes % 2H, Band Neutrophils 6, Nucleated Red Blood Cells 2, Platelet Estimate Adequate, Platelet Morphology Normal, Sodium Level 138, Potassium Level 3.5, Chloride Level 98, Carbon Dioxide Level 30, Anion Gap 11, Blood Urea Nitrogen 25H, Creatinine 3.7H, Estimat Glomerular Filtration Rate , Glucose Level 141H, Uric Acid 3.4, Calcium Level 8.7, Phosphorus Level 1.8L, Magnesium Level 1.8, Total Bilirubin 1.2H, Direct Bilirubin 0.6H, Aspartate Amino Transf (AST/SGOT) 19, Alanine Aminotransferase (ALT/SGPT) < 6L, Alkaline Phosphatase 99, C-Reactive Protein, Quantitative 16.4H, Pro-B-Type Natriuretic Peptide > 80662D, Total Protein 7.2, Albumin 2.0L, Globulin 5.2, Albumin/Globulin Ratio 0.4L 12/07/16 05:40: White Blood Count 12.4H, Red Blood Count 2.72L, Hemoglobin 8.3#L, Hematocrit 27.3#L, Mean Corpuscular Volume 100H, Mean Corpuscular Hemoglobin 30.5, Mean Corpuscular Hemoglobin Concent 30.5L, Red Cell Distribution Width 19.9H, Platelet Count 151, Mean Platelet Volume 6.5, Neutrophils (%) (Auto) 80.8H, Lymphocytes (%) (Auto) 8.2L, Monocytes (%) (Auto) 8.7, Eosinophils (%) (Auto) 1.4, Basophils (%) (Auto) 0.9 Height (Feet): 5 Height (Inches): 3.00 Weight (Pounds): 165 General Appearance: morbidly obese Neck: non-tender, supple Cardiovascular: normal rate, regular rhythm, no gallop/murmur, no JVD Respiratory/Chest: decreased breath sounds Abdomen: decreased bowel sounds Extremities: swelling Edema: 4+ Arm (L), 4+ Arm (R), 4+ Leg (L), 4+ Leg (R), 4+ Pedal (L), 4+ Pedal ( R), 4+ Generalized Edema: severe edema Neurologic: team psychologist II-XII grossly normal, oriented x 3, responsive Skin: rash Lymphatic: normal anterior cervical (L), normal anterior cervical (R), normal posterior cervical (L), normal posterior cervical (R), normal submandibular (L) , normal submandibular (R), normal supraclavicular (L), normal supraclavicular ( R), normal axillary (L), normal axillary (R), normal inguinal (L), normal inguinal (R), normal other Manny Nolan MD Dec 07, 2016 22:31
[2016-12-08 04:00] VITALS: BP 123/87
[2016-12-08 04:47] LABS: BASOPHILS % (AUTO) 1.2 % (0.0-2.0); EOSINOPHILS % (AUTO) 1.1 % (0.0-3.0); LYMPHOCYTES % (AUTO) 8.4 % (20.0-45.0); MEAN CORPUSCULAR HEMOGLOBIN 31.9 PG (27.0-31.0); MEAN CORPUSCULAR HGB CONC 31.6 G/DL (32.0-36.0); MEAN CORPUSCULAR VOLUME 101 FL (80-99); MEAN PLATELET VOLUME 6.6 FL (6.5-10.1); MONOCYTES % (AUTO) 9.5 % (1.0-10.0); NEUTROPHILS % (AUTO) 79.8 % (45.0-75.0); PLATELET COUNT 137 K/UL (150-450); RED BLOOD COUNT 2.58 M/UL (4.20-5.40); WHITE BLOOD COUNT 12.2 K/UL (4.8-10.8)
[2016-12-08 04:56] LABS: ALANINE AMINOTRANSFERASE < 6 U/L (12-78); ALBUMIN/GLOBULIN RATIO 0.3 (1.0-2.7); ANION GAP 7 mmol/L (5-15); ASPARTATE AMINO TRANSFERASE 16 U/L (15-37); CALCIUM 8.6 MG/DL (8.5-10.1); CARBON DIOXIDE 32 MMOL/L (21-32); CHLORIDE 98 MMOL/L (98-107); CREATININE 3.7 MG/DL (0.55-1.30); MAGNESIUM 1.8 MG/DL (1.8-2.4); PHOSPHORUS 2.4 MG/DL (2.5-4.9); POTASSIUM 3.4 MMOL/L (3.5-5.1); SODIUM 137 MMOL/L (136-145)
[2016-12-08] MEDS: Midodrine 10mg tab GT SCH ×3 (06:10→22:00)
[2016-12-08 08:00] VITALS: BP 110/59
[2016-12-08] MEDS: Docusate 100mg/10ml Liq GT SCH ×2 (09:13→18:07)
[2016-12-08] MEDS: Revatio 20mg tab ORAL SCH ×3 (09:13→18:07)
[2016-12-08] MEDS: Miralax 17gm pkt ORAL SCH (09:13)
[2016-12-08] MEDS: Allopurinol 100mg Tab ORAL SCH (09:14)
[2016-12-08] MEDS: Phospha 250 Neutral tab GT SCH ×3 (09:14→18:07)
--- NOTE | 2016-12-08 10:48 | GI Progress Note ---
Assessment/Plan Problems: (1) Positive occult stool blood test ICD Codes: R19.5 - Other fecal abnormalities SNOMED: 18089320, 019358423 (2) Morbid obesity ICD Codes: E66.01 - Morbid (severe) obesity due to excess calories SNOMED: 678949136, 72892990398888 (3) Anemia ICD Codes: D64.9 - Anemia, unspecified SNOMED: 832478361 (4) PEG (percutaneous endoscopic gastrostomy) adjustment/replacement/removal ICD Codes: Z43.1 - Encounter for attention to gastrostomy SNOMED: 840495893, 424012903 Status: unchanged Status Narrative 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 Dr. Noriega. Assessment/Plan s/p PEG GTF at 40 cc /o and tolerated fu pulmonary recs bowel regime ppi fu labs Subjective Subjective limited Objective Last 24 Hour Vital Signs Date Time Temp Pulse Resp B/P (MAP) Pulse Ox O2 Delivery O2 Flow Rate FiO2 12/08/16 08:32 72 14 50 12/08/16 08:00 79 12/08/16 08:00 97.5 79 19 110/59 98 Mechanical Ventilator 70 12/08/16 08:00 35 12/08/16 07:30 90 19 50 12/08/16 05:01 97 14 50 12/08/16 04:00 97.9 88 16 123/87 95 Mechanical Ventilator 50 12/08/16 04:00 81 12/08/16 04:00 50 12/08/16 03:18 71 14 50 12/08/16 01:18 69 14 50 12/08/16 00:00 50 12/08/16 00:00 67 12/07/16 23:54 97.3 71 14 97/52 99 Mechanical Ventilator 50 12/07/16 22:55 71 14 50 12/07/16 21:25 75 14 50 12/07/16 20:00 67 12/07/16 20:00 50 12/07/16 19:51 97.9 70 14 101/50 100 Mechanical Ventilator 50 12/07/16 18:56 63 14 50 12/07/16 16:38 76 15 50 12/07/16 16:00 96.6 76 20 108/63 100 Mechanical Ventilator 70 12/07/16 16:00 69 12/07/16 16:00 70 12/07/16 15:11 65 14 50 12/07/16 13:28 93 18 50 12/07/16 12:29 96 20 99/51 Mechanical Ventilator 50 12/07/16 12:26 Mechanical Ventilator 50 12/07/16 12:00 75 12/07/16 12:00 70 12/07/16 12:00 98.1 85 18 111/59 100 Mechanical Ventilator 70 Intake and Output 12/08/16 12/09/16 19:00 07:00 Intake Total 170 ml Balance 170 ml Free Water 50 ml Tube Feeding 120 ml Laboratory Tests Test 12/08/16 03:11 White Blood Count 12.2 K/UL (4.8-10.8) H Red Blood Count 2.58 M/UL (4.20-5.40) L Hemoglobin 8.2 G/DL (12.0-16.0) L Hematocrit 26.1 % (37.0-47.0) L Mean Corpuscular Volume 101 FL (80-99) H Mean Corpuscular Hemoglobin 31.9 PG (27.0-31.0) H Mean Corpuscular Hemoglobin Concent 31.6 G/DL (32.0-36.0) L Red Cell Distribution Width 20.0 % (11.6-14.8) H Platelet Count 137 K/UL (150-450) L Mean Platelet Volume 6.6 FL (6.5-10.1) Neutrophils (%) (Auto) 79.8 % (45.0-75.0) H Lymphocytes (%) (Auto) 8.4 % (20.0-45.0) L Monocytes (%) (Auto) 9.5 % (1.0-10.0) Eosinophils (%) (Auto) 1.1 % (0.0-3.0) Basophils (%) (Auto) 1.2 % (0.0-2.0) Sodium Level 137 MMOL/L (136-145) Potassium Level 3.4 MMOL/L (3.5-5.1) L Chloride Level 98 MMOL/L (98-107) Carbon Dioxide Level 32 MMOL/L (21-32) Anion Gap 7 mmol/L (5-15) Blood Urea Nitrogen 26 mg/dL (7-18) H Creatinine 3.7 MG/DL (0.55-1.30) H Estimat Glomerular Filtration Rate mL/min (>60) Glucose Level 157 MG/DL (74-106) H Calcium Level 8.6 MG/DL (8.5-10.1) Phosphorus Level 2.4 MG/DL (2.5-4.9) L Magnesium Level 1.8 MG/DL (1.8-2.4) Total Bilirubin 0.9 MG/DL (0.2-1.0) Aspartate Amino Transf (AST/SGOT) 16 U/L (15-37) Alanine Aminotransferase (ALT/SGPT) < 6 U/L (12-78) L Alkaline Phosphatase 99 U/L (46-116) Total Protein 7.0 G/DL (6.4-8.2) Albumin 1.8 G/DL (3.4-5.0) L Globulin 5.2 g/dL Albumin/Globulin Ratio 0.3 (1.0-2.7) L Height (Feet): 5 Height (Inches): 3.00 Weight (Pounds): 397 General Appearance: WD/WN, no apparent distress, alert, morbidly obese Cardiovascular: normal rate, other Respiratory/Chest: no respiratory distress, other - trach to vent Abdominal Exam: normal bowel sounds, non tender, soft, GT site - c/d/i Kateryna Sherman N.P. Dec 08, 2016 10:48
[2016-12-08] MEDS ORDERED: Potassium Phosphate 20 MM in NS 275 ML IV ONE (11:00)
[2016-12-08 12:00] VITALS: BP 112/60
--- NOTE | 2016-12-08 12:04 | Infectious Diseases Prog Note ---
Assessment/Plan Assessment/Plan Assesment: Leukocytosis , mild improved, ,afebrile Cellulitis BLE and R arm- in the setting of chronic leg edema/venous stasis, s/ p Rx- Limited Venous duplex BLE (non diagnostic), no DVT R arm;Cellulitis resolved;Now residual venous stasis changes. -Bcx Neg Anasarca/ bilateral leg lymphedema -CXR 12/04: Improved although persistent right lung parenchymal infiltrates versus edema, over one day. -CXR 12/03:Bilateral interstitial and alveolar edema persists VRE colonzied Anemia COPD Diastolic CHF Renal insufficiency- acute on chronic- started on HD 11/24 chronic resp failure, vent/trach dependent Gtbue pAfib pleural effusion MINA CKD GERD morbid obesity [place] resident Plan: -Continue to monitor off abx IV Vancomycin 11/11-11/12; 11/17-11/26 IV Cefepime 11/11-11/12 IV Ancef 11/12-11/28 Flagyl x1 11/11 -extremity elevation -edema management -Monitor CBC/BMP, - monitor Cx ( Bl, Ur ) - vent support, trach care, aspiration precautions Subjective Allergies: Coded Allergies: AMOXICILLIN (Verified Allergy, Mild, RASH, 09/30/16) PENICILLINS (Unverified Allergy, Unknown, 09/30/16) Subjective Afebrile Objective Vital Signs Last 24 Hour Vital Signs Date Time Temp Pulse Resp B/P (MAP) Pulse Ox O2 Delivery O2 Flow Rate FiO2 12/08/16 11:23 87 16 50 12/08/16 08:32 72 14 50 12/08/16 08:00 79 12/08/16 08:00 97.5 79 19 110/59 98 Mechanical Ventilator 70 12/08/16 08:00 35 12/08/16 07:30 90 19 50 12/08/16 05:01 97 14 50 12/08/16 04:00 97.9 88 16 123/87 95 Mechanical Ventilator 50 12/08/16 04:00 81 12/08/16 04:00 50 12/08/16 03:18 71 14 50 12/08/16 01:18 69 14 50 12/08/16 00:00 50 12/08/16 00:00 67 12/07/16 23:54 97.3 71 14 97/52 99 Mechanical Ventilator 50 12/07/16 22:55 71 14 50 12/07/16 21:25 75 14 50 12/07/16 20:00 67 12/07/16 20:00 50 12/07/16 19:51 97.9 70 14 101/50 100 Mechanical Ventilator 50 12/07/16 18:56 63 14 50 12/07/16 16:38 76 15 50 12/07/16 16:00 96.6 76 20 108/63 100 Mechanical Ventilator 70 12/07/16 16:00 69 12/07/16 16:00 70 12/07/16 15:11 65 14 50 12/07/16 13:28 93 18 50 12/07/16 12:29 96 20 99/51 Mechanical Ventilator 50 12/07/16 12:26 Mechanical Ventilator 50 Height (Feet): 5 Height (Inches): 3.00 Weight (Pounds): 397 HEENT: mucous membranes moist Respiratory/Chest: normal breath sounds Cardiovascular: regularly irregular Abdomen: no mass Microbiology Date/Time Source Procedure Growth Status 12/07/16 12:15 Sputum Gram Stain - Final Resulted 12/07/16 12:15 Sputum Sputum Culture Pending Resulted Laboratory Tests Test 12/08/16 03:11 White Blood Count 12.2 K/UL (4.8-10.8) H Red Blood Count 2.58 M/UL (4.20-5.40) L Hemoglobin 8.2 G/DL (12.0-16.0) L Hematocrit 26.1 % (37.0-47.0) L Mean Corpuscular Volume 101 FL (80-99) H Mean Corpuscular Hemoglobin 31.9 PG (27.0-31.0) H Mean Corpuscular Hemoglobin Concent 31.6 G/DL (32.0-36.0) L Red Cell Distribution Width 20.0 % (11.6-14.8) H Platelet Count 137 K/UL (150-450) L Mean Platelet Volume 6.6 FL (6.5-10.1) Neutrophils (%) (Auto) 79.8 % (45.0-75.0) H Lymphocytes (%) (Auto) 8.4 % (20.0-45.0) L Monocytes (%) (Auto) 9.5 % (1.0-10.0) Eosinophils (%) (Auto) 1.1 % (0.0-3.0) Basophils (%) (Auto) 1.2 % (0.0-2.0) Sodium Level 137 MMOL/L (136-145) Potassium Level 3.4 MMOL/L (3.5-5.1) L Chloride Level 98 MMOL/L (98-107) Carbon Dioxide Level 32 MMOL/L (21-32) Anion Gap 7 mmol/L (5-15) Blood Urea Nitrogen 26 mg/dL (7-18) H Creatinine 3.7 MG/DL (0.55-1.30) H Estimat Glomerular Filtration Rate mL/min (>60) Glucose Level 157 MG/DL (74-106) H Calcium Level 8.6 MG/DL (8.5-10.1) Phosphorus Level 2.4 MG/DL (2.5-4.9) L Magnesium Level 1.8 MG/DL (1.8-2.4) Total Bilirubin 0.9 MG/DL (0.2-1.0) Aspartate Amino Transf (AST/SGOT) 16 U/L (15-37) Alanine Aminotransferase (ALT/SGPT) < 6 U/L (12-78) L Alkaline Phosphatase 99 U/L (46-116) Total Protein 7.0 G/DL (6.4-8.2) Albumin 1.8 G/DL (3.4-5.0) L Globulin 5.2 g/dL Albumin/Globulin Ratio 0.3 (1.0-2.7) L Current Medications Medications (Trade) Dose Ordered Sig/Kalyn Route PRN Reason Start Time Stop Time Status Last Admin Dose Admin Acetaminophen (Tylenol) 650 mg Q4H PRN ORAL Mild Pain/Temp > 100.5 12/03/16 15:00 12/12/16 14:59 12/07/16 09:17 Allopurinol (Zyloprim) 200 mg DAILY ORAL 12/04/16 09:00 01/02/17 08:59 12/08/16 09:14 Chlorhexidine Gluconate (Marni-Hex 2%) 1 applic Q24H TOPIC 12/03/16 20:00 12/27/16 19:59 12/07/16 20:41 Diphenhydramine HCl (Benadryl) 25 mg Q6H PRN IVP Itching 12/03/16 15:00 12/19/16 14:59 Docusate Sodium (Colace) 100 mg TWICE A DAY GT 12/04/16 09:00 01/03/17 08:59 12/08/16 09:13 Epoetin Santos (Procrit (for non ESRD use)) 10,000 units TUE- SUBQ 12/03/16 21:00 12/17/16 20:59 12/06/16 21:34 Folic Acid (Folate) 1 mg DAILY ORAL 12/04/16 09:00 12/12/16 08:59 12/08/16 09:14 Gabapentin (Neurontin) 600 mg BID ORAL 12/03/16 18:00 12/14/16 08:59 12/08/16 09:13 Midodrine (Pro-Amatine) 10 mg EVERY 8 HOURS GT 12/05/16 22:00 01/04/17 21:59 12/08/16 06:10 Phosphorus (Phospha 250 Neutral) 500 mg THREE TIMES A DAY GT 12/07/16 18:00 01/06/17 17:59 12/08/16 09:14 Polyethylene Glycol (Miralax) 17 gm DAILY ORAL 12/04/16 09:00 12/12/16 08:59 12/08/16 09:13 Potassium Phosphate 20 mm/ Sodium Chloride 281.6667 ml @ 46.944 m... ONCE ONCE IV 12/08/16 11:00 12/08/16 16:59 Pravastatin Sodium (Pravachol) 20 mg BEDTIME ORAL 12/03/16 21:00 12/12/16 20:59 12/07/16 21:28 Ranitidine HCl (Zantac) 150 mg TWICE A DAY GT 12/05/16 18:00 01/04/17 17:59 12/08/16 09:13 Sildenafil Citrate (Revatio) 20 mg THREE TIMES A DAY ORAL 12/03/16 18:00 12/12/16 08:59 12/08/16 09:13 LINDSEY HILL M.D. Dec 08, 2016 12:04
--- NOTE | 2016-12-08 12:44 | General Progress Note ---
Assessment/Plan Status: stable Assessment/Plan Cellulitis BLE and R arm- in the setting of chronic leg edema- r/o DVT Anasarca/ bilateral leg lymphedema CKD- and acute renal failure - Acute respiratory failure s/p Trach Obese COPD , CHF, Diastolic MINA UTI Anemia GI Bleed, GI bleeding At Fib Pulm HTN h/o Low B12 plan: Now has PEG HD 12/08 K supplement as needed on EPOGEN 24 H urine collection in process: CrCl 6 Monitor renal parameters- optimize cardiac and pulm status avoid nephrotoxics- pulmonary support- transfuse as needed ? DC planning post PEG Subjective ROS Limited/Unobtainable: No Allergies: Coded Allergies: AMOXICILLIN (Verified Allergy, Mild, RASH, 09/30/16) PENICILLINS (Unverified Allergy, Unknown, 09/30/16) Objective Last 24 Hour Vital Signs Date Time Temp Pulse Resp B/P (MAP) Pulse Ox O2 Delivery O2 Flow Rate FiO2 12/08/16 11:50 83 12/08/16 11:23 87 16 50 12/08/16 08:32 72 14 50 12/08/16 08:00 79 12/08/16 08:00 97.5 79 19 110/59 98 Mechanical Ventilator 70 12/08/16 08:00 35 12/08/16 07:30 90 19 50 12/08/16 05:01 97 14 50 12/08/16 04:00 97.9 88 16 123/87 95 Mechanical Ventilator 50 12/08/16 04:00 81 12/08/16 04:00 50 12/08/16 03:18 71 14 50 12/08/16 01:18 69 14 50 12/08/16 00:00 50 12/08/16 00:00 67 12/07/16 23:54 97.3 71 14 97/52 99 Mechanical Ventilator 50 12/07/16 22:55 71 14 50 12/07/16 21:25 75 14 50 12/07/16 20:00 67 12/07/16 20:00 50 12/07/16 19:51 97.9 70 14 101/50 100 Mechanical Ventilator 50 12/07/16 18:56 63 14 50 12/07/16 16:38 76 15 50 12/07/16 16:00 96.6 76 20 108/63 100 Mechanical Ventilator 70 12/07/16 16:00 69 12/07/16 16:00 70 12/07/16 15:11 65 14 50 12/07/16 13:28 93 18 50 Intake and Output 12/08/16 12/09/16 19:00 07:00 Intake Total 170 ml Balance 170 ml Free Water 50 ml Tube Feeding 120 ml Laboratory Tests 12/08/16 03:11: White Blood Count 12.2H, Red Blood Count 2.58L, Hemoglobin 8.2L, Hematocrit 26.1L, Mean Corpuscular Volume 101H, Mean Corpuscular Hemoglobin 31.9H, Mean Corpuscular Hemoglobin Concent 31.6L, Red Cell Distribution Width 20.0H, Platelet Count 137L, Mean Platelet Volume 6.6, Neutrophils (%) (Auto) 79.8H, Lymphocytes (%) (Auto) 8.4L, Monocytes (%) (Auto) 9.5, Eosinophils (%) (Auto) 1.1, Basophils (%) (Auto) 1.2, Sodium Level 137, Potassium Level 3.4L, Chloride Level 98, Carbon Dioxide Level 32, Anion Gap 7, Blood Urea Nitrogen 26H, Creatinine 3.7H, Estimat Glomerular Filtration Rate , Glucose Level 157H, Calcium Level 8.6, Phosphorus Level 2.4L, Magnesium Level 1.8, Total Bilirubin 0.9, Aspartate Amino Transf (AST/SGOT) 16, Alanine Aminotransferase (ALT/SGPT) < 6L, Alkaline Phosphatase 99, Total Protein 7.0, Albumin 1.8L, Globulin 5.2, Albumin/Globulin Ratio 0.3L Height (Feet): 5 Height (Inches): 3.00 Weight (Pounds): 397 Cardiovascular: normal rate Respiratory/Chest: decreased breath sounds Abdomen: soft Edema: 2+ Arm (L), 2+ Arm (R), 2+ Leg (L), 2+ Leg (R), 2+ Pedal (L), 2+ Pedal ( R), 2+ Generalized Objective much less edematous COURTNEY LOPEZ Dec 08, 2016 12:44
--- NOTE | 2016-12-08 13:25 | Pulmonology Progress Note ---
Assessment/Plan Problems: (1) Chronic respiratory failure (2) Anasarca (3) ATN (acute tubular necrosis) (4) Anemia (5) Peripheral edema (6) Pickwickian syndrome (7) MINA (obstructive sleep apnea) (8) Morbid obesity Respiratory: monitor respiratory rate, adjust FIO2, CXR Cardiac: continue to monitor HR/BP Renal: F/U I&O, keep IV fluid Infectious Disease: check cultures Gastrointestinal: continue feedings/current rate Endocrine: monitor blood sugar, check TSH, check HgA1C, continue sliding scale insulin Hematologic: transfuse if hgb<8.5 Neurologic: PRN Ativan, PRN Morphine, keep patient comfortable Time Spent (Minutes): 30 Notes Reviewed: cardio, renal 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: nurses, consultants, case assistant Subjective ROS Limited/Unobtainable: No Constitutional: Reports: no symptoms HEENT: Repors: no symptoms Respiratory: Reports: no symptoms Allergies: Coded Allergies: AMOXICILLIN (Verified Allergy, Mild, RASH, 09/30/16) PENICILLINS (Unverified Allergy, Unknown, 09/30/16) Objective Last 24 Hour Vital Signs Date Time Temp Pulse Resp B/P (MAP) Pulse Ox O2 Delivery O2 Flow Rate FiO2 12/08/16 12:43 87 16 50 12/08/16 11:50 83 12/08/16 11:23 87 16 50 12/08/16 08:32 72 14 50 12/08/16 08:00 79 12/08/16 08:00 97.5 79 19 110/59 98 Mechanical Ventilator 70 12/08/16 08:00 35 12/08/16 07:30 90 19 50 12/08/16 05:01 97 14 50 12/08/16 04:00 97.9 88 16 123/87 95 Mechanical Ventilator 50 12/08/16 04:00 81 12/08/16 04:00 50 12/08/16 03:18 71 14 50 12/08/16 01:18 69 14 50 12/08/16 00:00 50 12/08/16 00:00 67 12/07/16 23:54 97.3 71 14 97/52 99 Mechanical Ventilator 50 12/07/16 22:55 71 14 50 12/07/16 21:25 75 14 50 12/07/16 20:00 67 12/07/16 20:00 50 12/07/16 19:51 97.9 70 14 101/50 100 Mechanical Ventilator 50 12/07/16 18:56 63 14 50 12/07/16 16:38 76 15 50 12/07/16 16:00 96.6 76 20 108/63 100 Mechanical Ventilator 70 12/07/16 16:00 69 12/07/16 16:00 70 12/07/16 15:11 65 14 50 12/07/16 13:28 93 18 50 Intake and Output 12/08/16 12/09/16 19:00 07:00 Intake Total 170 ml Balance 170 ml Free Water 50 ml Tube Feeding 120 ml General Appearance: WD/WN HEENT: normocephalic, atraumatic Respiratory/Chest: chest wall non-tender, normal breath sounds Breasts: no masses Cardiovascular: normal peripheral pulses, normal rate Abdomen: normal bowel sounds, soft, non tender Skin: no ulcers Neurologic/Psychiatric: no motor/sensory deficits Lymphatic: no neck adenopathy, no groin adenopathy Musculoskeletal: normal muscle bulk Microbiology Date/Time Source Procedure Growth Status 12/07/16 12:15 Sputum Gram Stain - Final Resulted 12/07/16 12:15 Sputum Sputum Culture Pending Resulted Laboratory Tests 12/08/16 03:11: White Blood Count 12.2H, Red Blood Count 2.58L, Hemoglobin 8.2L, Hematocrit 26.1L, Mean Corpuscular Volume 101H, Mean Corpuscular Hemoglobin 31.9H, Mean Corpuscular Hemoglobin Concent 31.6L, Red Cell Distribution Width 20.0H, Platelet Count 137L, Mean Platelet Volume 6.6, Neutrophils (%) (Auto) 79.8H, Lymphocytes (%) (Auto) 8.4L, Monocytes (%) (Auto) 9.5, Eosinophils (%) (Auto) 1.1, Basophils (%) (Auto) 1.2, Sodium Level 137, Potassium Level 3.4L, Chloride Level 98, Carbon Dioxide Level 32, Anion Gap 7, Blood Urea Nitrogen 26H, Creatinine 3.7H, Estimat Glomerular Filtration Rate , Glucose Level 157H, Calcium Level 8.6, Phosphorus Level 2.4L, Magnesium Level 1.8, Total Bilirubin 0.9, Aspartate Amino Transf (AST/SGOT) 16, Alanine Aminotransferase (ALT/SGPT) < 6L, Alkaline Phosphatase 99, Total Protein 7.0, Albumin 1.8L, Globulin 5.2, Albumin/Globulin Ratio 0.3L Current Medications Medications (Trade) Dose Ordered Sig/Kalyn Route PRN Reason Start Time Stop Time Status Last Admin Dose Admin Acetaminophen (Tylenol) 650 mg Q4H PRN ORAL Mild Pain/Temp > 100.5 12/03/16 15:00 12/12/16 14:59 12/07/16 09:17 Allopurinol (Zyloprim) 200 mg DAILY ORAL 12/04/16 09:00 01/02/17 08:59 12/08/16 09:14 Chlorhexidine Gluconate (Marni-Hex 2%) 1 applic Q24H TOPIC 12/03/16 20:00 12/27/16 19:59 12/07/16 20:41 Diphenhydramine HCl (Benadryl) 25 mg Q6H PRN IVP Itching 12/03/16 15:00 12/19/16 14:59 Docusate Sodium (Colace) 100 mg TWICE A DAY GT 12/04/16 09:00 01/03/17 08:59 12/08/16 09:13 Epoetin Santos (Procrit (for non ESRD use)) 10,000 units TUE-TUE-TUE SUBQ 12/03/16 21:00 12/17/16 20:59 12/06/16 21:34 Folic Acid (Folate) 1 mg DAILY ORAL 12/04/16 09:00 12/12/16 08:59 12/08/16 09:14 Gabapentin (Neurontin) 600 mg BID ORAL 12/03/16 18:00 12/14/16 08:59 12/08/16 09:13 Midodrine (Pro-Amatine) 10 mg EVERY 8 HOURS GT 12/05/16 22:00 01/04/17 21:59 12/08/16 06:10 Phosphorus (Phospha 250 Neutral) 500 mg THREE TIMES A DAY GT 12/07/16 18:00 01/06/17 17:59 12/08/16 09:14 Polyethylene Glycol (Miralax) 17 gm DAILY ORAL 12/04/16 09:00 12/12/16 08:59 12/08/16 09:13 Potassium Phosphate 20 mm/ Sodium Chloride 281.6667 ml @ 46.944 m... ONCE ONCE IV 12/08/16 11:00 12/08/16 16:59 Pravastatin Sodium (Pravachol) 20 mg BEDTIME ORAL 12/03/16 21:00 12/12/16 20:59 12/07/16 21:28 Ranitidine HCl (Zantac) 150 mg TWICE A DAY GT 12/05/16 18:00 01/04/17 17:59 12/08/16 09:13 Sildenafil Citrate (Revatio) 20 mg THREE TIMES A DAY ORAL 12/03/16 18:00 12/12/16 08:59 12/08/16 09:13 ARASH MIRANDA Dec 08, 2016 13:25
[2016-12-08 15:35] VITALS: BP 112/65
--- NOTE | 2016-12-08 16:58 | Cardiology Progress Note ---
Assessment/Plan Assessment/Plan 1. Permanent atrial fibrillation. 2. Chronic respiratory failure, on a mechanical ventilator. 3. Cor pulmonale. 4. Pulmonary hypertension. 5. Acute renal failure, now on dialysis. 6. Anemia. 7. Significant edema. 8. Hypoalbuminemia. 9. stool ob + bp ok today on vent remain in afib stool now ob + no anticoagulation for now toleratign g tube feeding anemia noted awake and responsive tele reviweed Subjective Cardiovascular: Denies: chest pain, lightheadedness, palpitations Respiratory: Denies: shortness of breath Gastrointestinal/Abdominal: Denies: abdominal pain Genitourinary: Denies: burning Subjective on the vent awake Objective Last 24 Hour Vital Signs Date Time Temp Pulse Resp B/P (MAP) Pulse Ox O2 Delivery O2 Flow Rate FiO2 12/08/16 15:35 97.5 72 19 112/65 100 Mechanical Ventilator 70 12/08/16 15:35 35 12/08/16 15:35 78 12/08/16 15:15 91 14 50 12/08/16 12:43 87 16 50 12/08/16 12:00 97.8 75 20 112/60 98 Mechanical Ventilator 70 12/08/16 12:00 35 12/08/16 11:50 83 12/08/16 11:23 87 16 50 12/08/16 08:32 72 14 50 12/08/16 08:00 79 12/08/16 08:00 97.5 79 19 110/59 98 Mechanical Ventilator 70 12/08/16 08:00 35 12/08/16 07:30 90 19 50 12/08/16 05:01 97 14 50 12/08/16 04:00 97.9 88 16 123/87 95 Mechanical Ventilator 50 12/08/16 04:00 81 12/08/16 04:00 50 12/08/16 03:18 71 14 50 12/08/16 01:18 69 14 50 12/08/16 00:00 50 12/08/16 00:00 67 12/07/16 23:54 97.3 71 14 97/52 99 Mechanical Ventilator 50 12/07/16 22:55 71 14 50 12/07/16 21:25 75 14 50 12/07/16 20:00 67 12/07/16 20:00 50 12/07/16 19:51 97.9 70 14 101/50 100 Mechanical Ventilator 50 10/31/17 18:56 63 14 50 General Appearance: alert Cardiovascular: irregularly irregular Respiratory/Chest: rhonchi - bilaterally Abdomen: normal bowel sounds, non tender, soft Extremities: severe edema Intake and Output 12/08/16 12/09/16 19:00 07:00 Intake Total 170 ml Balance 170 ml Free Water 50 ml Tube Feeding 120 ml Laboratory Tests Test 12/08/16 03:11 White Blood Count 12.2 K/UL (4.8-10.8) H Red Blood Count 2.58 M/UL (4.20-5.40) L Hemoglobin 8.2 G/DL (12.0-16.0) L Hematocrit 26.1 % (37.0-47.0) L Mean Corpuscular Volume 101 FL (80-99) H Mean Corpuscular Hemoglobin 31.9 PG (27.0-31.0) H Mean Corpuscular Hemoglobin Concent 31.6 G/DL (32.0-36.0) L Red Cell Distribution Width 20.0 % (11.6-14.8) H Platelet Count 137 K/UL (150-450) L Mean Platelet Volume 6.6 FL (6.5-10.1) Neutrophils (%) (Auto) 79.8 % (45.0-75.0) H Lymphocytes (%) (Auto) 8.4 % (20.0-45.0) L Monocytes (%) (Auto) 9.5 % (1.0-10.0) Eosinophils (%) (Auto) 1.1 % (0.0-3.0) Basophils (%) (Auto) 1.2 % (0.0-2.0) Sodium Level 137 MMOL/L (136-145) Potassium Level 3.4 MMOL/L (3.5-5.1) L Chloride Level 98 MMOL/L (98-107) Carbon Dioxide Level 32 MMOL/L (21-32) Anion Gap 7 mmol/L (5-15) Blood Urea Nitrogen 26 mg/dL (7-18) H Creatinine 3.7 MG/DL (0.55-1.30) H Estimat Glomerular Filtration Rate mL/min (>60) Glucose Level 157 MG/DL (74-106) H Calcium Level 8.6 MG/DL (8.5-10.1) Phosphorus Level 2.4 MG/DL (2.5-4.9) L Magnesium Level 1.8 MG/DL (1.8-2.4) Total Bilirubin 0.9 MG/DL (0.2-1.0) Aspartate Amino Transf (AST/SGOT) 16 U/L (15-37) Alanine Aminotransferase (ALT/SGPT) < 6 U/L (12-78) L Alkaline Phosphatase 99 U/L (46-116) Total Protein 7.0 G/DL (6.4-8.2) Albumin 1.8 G/DL (3.4-5.0) L Globulin 5.2 g/dL Albumin/Globulin Ratio 0.3 (1.0-2.7) L Microbiology Date/Time Source Procedure Growth Status 12/07/16 12:15 Sputum Gram Stain - Final Resulted 12/07/16 12:15 Sputum Sputum Culture Pending Resulted BRIANA TELLES Dec 08, 2016 16:57
--- NOTE | 2016-12-08 17:51 | General Progress Note ---
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 Will give Vitamin K and then repeat mixing study. --> Vitamin K has been given, results pending #. Anemia secondary to chronic disease. Continue to closely monitor. Work up reviewed --> s/p transfusion. watch counts, transfuse if hgb is below 8 # Positive occult blood. r/o gi bleed. gi following #. Anemia of kidney disease. Nephrology service following #. PEG tube placement. tolerating feeds #. Chronic ventilator dependent #. Permanent atrial fibrillation. #. Cellulitis and chronic lymphedema of the bilateral lower extremities. #. Congestive heart failure. Subjective ROS Limited/Unobtainable: Yes Allergies: Coded Allergies: AMOXICILLIN (Verified Allergy, Mild, RASH, 09/30/16) PENICILLINS (Unverified Allergy, Unknown, 09/30/16) Subjective afebrile, no bleeding Objective Last 24 Hour Vital Signs Date Time Temp Pulse Resp B/P (MAP) Pulse Ox O2 Delivery O2 Flow Rate FiO2 12/08/16 15:35 97.5 72 19 112/65 100 Mechanical Ventilator 70 12/08/16 15:35 35 12/08/16 15:35 78 12/08/16 15:15 91 14 50 12/08/16 12:43 87 16 50 12/08/16 12:00 97.8 75 20 112/60 98 Mechanical Ventilator 70 12/08/16 12:00 35 12/08/16 11:50 83 12/08/16 11:23 87 16 50 12/08/16 08:32 72 14 50 12/08/16 08:00 79 12/08/16 08:00 97.5 79 19 110/59 98 Mechanical Ventilator 70 12/08/16 08:00 35 12/08/16 07:30 90 19 50 12/08/16 05:01 97 14 50 12/08/16 04:00 97.9 88 16 123/87 95 Mechanical Ventilator 50 12/08/16 04:00 81 12/08/16 04:00 50 12/08/16 03:18 71 14 50 12/08/16 01:18 69 14 50 12/08/16 00:00 50 12/08/16 00:00 67 12/07/16 23:54 97.3 71 14 97/52 99 Mechanical Ventilator 50 12/07/16 22:55 71 14 50 12/07/16 21:25 75 14 50 12/07/16 20:00 67 12/07/16 20:00 50 12/07/16 19:51 97.9 70 14 101/50 100 Mechanical Ventilator 50 12/07/16 18:56 63 14 50 Intake and Output 12/08/16 12/09/16 19:00 07:00 Intake Total 170 ml Balance 170 ml Free Water 50 ml Tube Feeding 120 ml Laboratory Tests 12/08/16 03:11: White Blood Count 12.2H, Red Blood Count 2.58L, Hemoglobin 8.2L, Hematocrit 26.1L, Mean Corpuscular Volume 101H, Mean Corpuscular Hemoglobin 31.9H, Mean Corpuscular Hemoglobin Concent 31.6L, Red Cell Distribution Width 20.0H, Platelet Count 137L, Mean Platelet Volume 6.6, Neutrophils (%) (Auto) 79.8H, Lymphocytes (%) (Auto) 8.4L, Monocytes (%) (Auto) 9.5, Eosinophils (%) (Auto) 1.1, Basophils (%) (Auto) 1.2, Sodium Level 137, Potassium Level 3.4L, Chloride Level 98, Carbon Dioxide Level 32, Anion Gap 7, Blood Urea Nitrogen 26H, Creatinine 3.7H, Estimat Glomerular Filtration Rate , Glucose Level 157H, Calcium Level 8.6, Phosphorus Level 2.4L, Magnesium Level 1.8, Total Bilirubin 0.9, Aspartate Amino Transf (AST/SGOT) 16, Alanine Aminotransferase (ALT/SGPT) < 6L, Alkaline Phosphatase 99, Total Protein 7.0, Albumin 1.8L, Globulin 5.2, Albumin/Globulin Ratio 0.3L Height (Feet): 5 Height (Inches): 3.00 Weight (Pounds): 397 General Appearance: no apparent distress EENT: PERRL/EOMI Neck: non-tender Cardiovascular: normal peripheral pulses Abdomen: non tender, no organomegaly Neurologic: line server II-XII grossly normal Skin: normal pigmentation, warm/dry NAIDA MANJARREZ Dec 08, 2016 17:51
--- NOTE | 2016-12-08 18:09 | General Progress Note ---
Assessment/Plan Assessment/Plan This is a 76-year-old, morbidly obese female, admitted with anasarca and cellulitis of the lower leg. The patient was admitted to the directr observation unit on the monitor with the following medical problems. now transfered to icu as of 11-14-16, co of pruritis 1. Anasarca. She appears to be markedly swollen. She will need diuresis. Place the patient on Lasix 20 mg intravenous for now q.12 hours. Cardiology and Pulmonary on the case. We will follow orders. Check laboratory studies daily. Lasix drip was discontinued in am, HD started 2. Chronic hypercapnic respiratory failure. Continue with vent support per Pulmonary. will discuss with pulmonary regarding trach issues 3 anemia. s./p transfusion of PRBC Continue monitoring CBC daily. patient to start Procrit per nephrology 4. Pulmonary hypertension. hold Eliquis as patient is ob positive 5. Chronic kidney disease. On HD for now per nephrology. 6. DVT prophylaxis. scds 7. nutrition: patient didn't tolerate NGT placement, patient is now s/p PEG placement, tolerating tube feeding 8. Alkalosis: resolved 9. Generalized anxiety: Ativan prn, counselled for 15min 10. constipation: prn enema, continue with Colace and MiraLAX had revision of trach on 11-23-16 Benadryl 25 mg iv q 6 prn itching tolerating tube feeding continue HD per nephrology trach revision done by Dr. Powell discussed with nursing staff HD per nephrology in am continue current care Subjective Date patient seen: Dec 08, 2016 Allergies: Coded Allergies: AMOXICILLIN (Verified Allergy, Mild, RASH, 09/30/16) PENICILLINS (Unverified Allergy, Unknown, 09/30/16) All Systems: reviewed and negative except above Subjective patient had HD today, friend Sean at bedside Objective Last 24 Hour Vital Signs Date Time Temp Pulse Resp B/P (MAP) Pulse Ox O2 Delivery O2 Flow Rate FiO2 12/08/16 17:48 89 14 50 12/08/16 15:35 97.5 72 19 112/65 100 Mechanical Ventilator 70 12/08/16 15:35 35 12/08/16 15:35 78 12/08/16 15:15 91 14 50 12/08/16 12:43 87 16 50 12/08/16 12:00 97.8 75 20 112/60 98 Mechanical Ventilator 70 12/08/16 12:00 35 12/08/16 11:50 83 12/08/16 11:23 87 16 50 12/08/16 08:32 72 14 50 12/08/16 08:00 79 12/08/16 08:00 97.5 79 19 110/59 98 Mechanical Ventilator 70 12/08/16 08:00 35 12/08/16 07:30 90 19 50 12/08/16 05:01 97 14 50 12/08/16 04:00 97.9 88 16 123/87 95 Mechanical Ventilator 50 12/08/16 04:00 81 12/08/16 04:00 50 12/08/16 03:18 71 14 50 12/08/16 01:18 69 14 50 12/08/16 00:00 50 12/08/16 00:00 67 12/07/16 23:54 97.3 71 14 97/52 99 Mechanical Ventilator 50 12/07/16 22:55 71 14 50 12/07/16 21:25 75 14 50 12/07/16 20:00 67 12/07/16 20:00 50 12/07/16 19:51 97.9 70 14 101/50 100 Mechanical Ventilator 50 12/07/16 18:56 63 14 50 Intake and Output 12/08/16 12/09/16 19:00 07:00 Intake Total 630 ml Balance 630 ml Free Water 150 ml Tube Feeding 480 ml # Voids 3 # Bowel Movements 1 Laboratory Tests 12/08/16 03:11: White Blood Count 12.2H, Red Blood Count 2.58L, Hemoglobin 8.2L, Hematocrit 26.1L, Mean Corpuscular Volume 101H, Mean Corpuscular Hemoglobin 31.9H, Mean Corpuscular Hemoglobin Concent 31.6L, Red Cell Distribution Width 20.0H, Platelet Count 137L, Mean Platelet Volume 6.6, Neutrophils (%) (Auto) 79.8H, Lymphocytes (%) (Auto) 8.4L, Monocytes (%) (Auto) 9.5, Eosinophils (%) (Auto) 1.1, Basophils (%) (Auto) 1.2, Sodium Level 137, Potassium Level 3.4L, Chloride Level 98, Carbon Dioxide Level 32, Anion Gap 7, Blood Urea Nitrogen 26H, Creatinine 3.7H, Estimat Glomerular Filtration Rate , Glucose Level 157H, Calcium Level 8.6, Phosphorus Level 2.4L, Magnesium Level 1.8, Total Bilirubin 0.9, Aspartate Amino Transf (AST/SGOT) 16, Alanine Aminotransferase (ALT/SGPT) < 6L, Alkaline Phosphatase 99, Total Protein 7.0, Albumin 1.8L, Globulin 5.2, Albumin/Globulin Ratio 0.3L Height (Feet): 5 Height (Inches): 3.00 Weight (Pounds): 397 General Appearance: morbidly obese EENT: PERRL/EOMI, pharynx normal Neck: non-tender, supple Cardiovascular: normal rate, regular rhythm, no gallop/murmur, no JVD Respiratory/Chest: decreased breath sounds Abdomen: distended Extremities: swelling Edema: 3+ Arm (L), 3+ Arm (R), 4+ Leg (L), 4+ Leg (R), 4+ Pedal (L), 4+ Pedal ( R), 4+ Generalized Edema: severe edema Neurologic: rehabilitation coordinator II-XII grossly normal, oriented x 3, responsive Skin: rash Lymphatic: normal anterior cervical (L), normal anterior cervical (R), normal posterior cervical (L), normal posterior cervical (R), normal submandibular (L) , normal submandibular (R), normal supraclavicular (L), normal supraclavicular ( R), normal axillary (L), normal axillary (R), normal inguinal (L), normal inguinal (R), normal other Manny Nolan MD Dec 08, 2016 18:09
[2016-12-08 20:00] VITALS: BP 122/56
[2016-12-08] MEDS: Dyna-Hex 2% Top Sol 2oz TOPIC SCH (20:00)
[2016-12-08] MEDS: Epogen (for non ESRD use) SUBQ SCH (21:00)
[2016-12-08 23:56] VITALS: BP 118/42
[2016-12-09] MEDS: Midodrine 10mg tab GT SCH ×4 (01:14→22:00)
[2016-12-09 04:00] VITALS: BP 108/57
[2016-12-09] MEDS: Epogen (for non ESRD use) SUBQ SCH (04:47)
[2016-12-09 04:51] LABS: MEAN CORPUSCULAR HEMOGLOBIN 30.7 PG (27.0-31.0); MEAN CORPUSCULAR HGB CONC 30.6 G/DL (32.0-36.0); MEAN CORPUSCULAR VOLUME 100 FL (80-99); MEAN PLATELET VOLUME 6.4 FL (6.5-10.1); PLATELET COUNT 129 K/UL (150-450); RED BLOOD COUNT 2.58 M/UL (4.20-5.40); WHITE BLOOD COUNT 12.4 K/UL (4.8-10.8)
[2016-12-09 05:29] LABS: ALANINE AMINOTRANSFERASE < 6 U/L (12-78); ALBUMIN/GLOBULIN RATIO 0.4 (1.0-2.7); ANION GAP 5 mmol/L (5-15); ASPARTATE AMINO TRANSFERASE 16 U/L (15-37); BILIRUBIN,DIRECT 0.6 MG/DL (0.0-0.3); CALCIUM 8.3 MG/DL (8.5-10.1); CARBON DIOXIDE 34 MMOL/L (21-32); CHLORIDE 96 MMOL/L (98-107); POTASSIUM 3.2 MMOL/L (3.5-5.1); SODIUM 135 MMOL/L (136-145); TOTAL PROTEIN 6.9 G/DL (6.4-8.2)
[2016-12-09 08:00] VITALS: BP 103/75
[2016-12-09] MEDS: Docusate 100mg/10ml Liq GT SCH ×2 (09:00→17:26)
[2016-12-09] MEDS: Miralax 17gm pkt ORAL SCH (09:00)
[2016-12-09] MEDS: Phospha 250 Neutral tab GT SCH ×3 (09:14→17:27)
[2016-12-09] MEDS: Revatio 20mg tab ORAL SCH ×3 (09:14→17:26)
[2016-12-09] MEDS: Allopurinol 100mg Tab ORAL SCH (09:15)
--- NOTE | 2016-12-09 10:26 | GI Progress Note ---
Assessment/Plan Problems: (1) Positive occult stool blood test ICD Codes: R19.5 - Other fecal abnormalities SNOMED: 16165060, 510572719 (2) Morbid obesity ICD Codes: E66.01 - Morbid (severe) obesity due to excess calories SNOMED: 981952382, 21275670529999 (3) Anemia ICD Codes: D64.9 - Anemia, unspecified SNOMED: 914857221 (4) PEG (percutaneous endoscopic gastrostomy) adjustment/replacement/removal ICD Codes: Z43.1 - Encounter for attention to gastrostomy SNOMED: 785645539, 222250012 Status: stable Status Narrative 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 Dr. Noriega. Assessment/Plan s/p PEG GTF per dietary at goal fu pulmonary recs bowel regime ppi fu labs Subjective Subjective limited Objective Last 24 Hour Vital Signs Date Time Temp Pulse Resp B/P (MAP) Pulse Ox O2 Delivery O2 Flow Rate FiO2 12/09/16 09:00 50 12/09/16 08:42 78 14 50 12/09/16 08:00 72 12/09/16 08:00 97.5 70 14 103/75 93 Mechanical Ventilator 50 12/09/16 06:52 82 14 50 12/09/16 05:10 79 14 50 12/09/16 04:00 75 12/09/16 04:00 97.7 78 14 108/57 97 Mechanical Ventilator 50 12/09/16 04:00 50 12/09/16 03:20 81 14 50 12/09/16 01:12 75 14 50 12/09/16 00:00 50 12/08/16 23:58 Mechanical Ventilator 50 12/08/16 23:56 79 20 118/42 Mechanical Ventilator 50 12/08/16 23:10 84 14 50 12/08/16 21:01 70 14 50 12/08/16 20:45 Mechanical Ventilator 50 12/08/16 20:22 68 12/08/16 20:00 98.1 77 14 122/56 100 Mechanical Ventilator 50 12/08/16 20:00 50 12/08/16 19:14 85 14 50 12/08/16 17:48 89 14 50 12/08/16 15:35 97.5 72 19 112/65 100 Mechanical Ventilator 70 12/08/16 15:35 35 12/08/16 15:35 78 12/08/16 15:15 91 14 50 11/1/17 12:43 87 16 50 12/08/16 12:00 97.8 75 20 112/60 98 Mechanical Ventilator 70 12/08/16 12:00 35 12/08/16 11:50 83 12/08/16 11:23 87 16 50 Laboratory Tests Test 12/09/16 03:25 White Blood Count 12.4 K/UL (4.8-10.8) H Red Blood Count 2.58 M/UL (4.20-5.40) L Hemoglobin 7.9 G/DL (12.0-16.0) L Hematocrit 25.9 % (37.0-47.0) L Mean Corpuscular Volume 100 FL (80-99) H Mean Corpuscular Hemoglobin 30.7 PG (27.0-31.0) Mean Corpuscular Hemoglobin Concent 30.6 G/DL (32.0-36.0) L Red Cell Distribution Width 20.0 % (11.6-14.8) H Platelet Count 129 K/UL (150-450) L Mean Platelet Volume 6.4 FL (6.5-10.1) L Neutrophils (%) (Auto) % (45.0-75.0) Lymphocytes (%) (Auto) % (20.0-45.0) Monocytes (%) (Auto) % (1.0-10.0) Eosinophils (%) (Auto) % (0.0-3.0) Basophils (%) (Auto) % (0.0-2.0) Sodium Level 135 MMOL/L (136-145) L Potassium Level 3.2 MMOL/L (3.5-5.1) L Chloride Level 96 MMOL/L (98-107) L Carbon Dioxide Level 34 MMOL/L (21-32) H Anion Gap 5 mmol/L (5-15) Blood Urea Nitrogen 20 mg/dL (7-18) H Creatinine 3.0 MG/DL (0.55-1.30) H Estimat Glomerular Filtration Rate mL/min (>60) Glucose Level 109 MG/DL (74-106) H Calcium Level 8.3 MG/DL (8.5-10.1) L Total Bilirubin 1.1 MG/DL (0.2-1.0) H Direct Bilirubin 0.6 MG/DL (0.0-0.3) H Aspartate Amino Transf (AST/SGOT) 16 U/L (15-37) Alanine Aminotransferase (ALT/SGPT) < 6 U/L (12-78) L Alkaline Phosphatase 98 U/L (46-116) Total Protein 6.9 G/DL (6.4-8.2) Albumin 1.9 G/DL (3.4-5.0) L Globulin 5.0 g/dL Albumin/Globulin Ratio 0.4 (1.0-2.7) L Height (Feet): 5 Height (Inches): 3.00 Weight (Pounds): 387 General Appearance: no apparent distress, alert Cardiovascular: normal rate Respiratory/Chest: other - mech vent Abdominal Exam: normal bowel sounds, non tender, soft, GT site - c/d/i Kateryna Sherman N.P. Dec 09, 2016 10:26
[2016-12-09 12:00] VITALS: BP 108/75
--- NOTE | 2016-12-09 12:08 | Infectious Diseases Prog Note ---
Assessment/Plan Assessment/Plan Assesment: Leukocytosis , mild improved, ,afebrile Cellulitis BLE and R arm- in the setting of chronic leg edema/venous stasis, s/ p Rx- Limited Venous duplex BLE (non diagnostic), no DVT R arm;Cellulitis resolved;Now residual venous stasis changes. -Bcx Neg Anasarca/ bilateral leg lymphedema -CXR 12/04: Improved although persistent right lung parenchymal infiltrates versus edema, over one day. -CXR 12/03:Bilateral interstitial and alveolar edema persists VRE colonzied Anemia COPD Diastolic CHF Renal insufficiency- acute on chronic- started on HD 11/24 chronic resp failure, vent/trach dependent Gtbue pAfib pleural effusion MINA CKD GERD morbid obesity [place] resident Plan: -Continue to monitor off abx IV Vancomycin 11/11-11/12; 11/17-11/26 IV Cefepime 11/11-11/12 IV Ancef 11/12-11/28 Flagyl x1 11/11 -extremity elevation -edema management -Monitor CBC/BMP, - monitor Cx ( Bl, Ur ) - vent support, trach care, aspiration precautions Subjective Constitutional: Denies: no symptoms, fever, chills, fatigue, anorexia, drenching sweats, other Allergies: Coded Allergies: AMOXICILLIN (Verified Allergy, Mild, RASH, 09/30/16) PENICILLINS (Unverified Allergy, Unknown, 09/30/16) Subjective Afebrile Objective Vital Signs Last 24 Hour Vital Signs Date Time Temp Pulse Resp B/P (MAP) Pulse Ox O2 Delivery O2 Flow Rate FiO2 12/09/16 12:00 50 12/09/16 10:54 81 16 50 12/09/16 09:00 50 12/09/16 08:42 78 14 50 12/09/16 08:00 72 12/09/16 08:00 97.5 70 14 103/75 93 Mechanical Ventilator 50 12/09/16 06:52 82 14 50 12/09/16 05:10 79 14 50 12/09/16 04:00 75 12/09/16 04:00 97.7 78 14 108/57 97 Mechanical Ventilator 50 12/09/16 04:00 50 12/09/16 03:20 81 14 50 12/09/16 01:12 75 14 50 12/09/16 00:00 50 12/08/16 23:58 Mechanical Ventilator 50 12/08/16 23:56 79 20 118/42 Mechanical Ventilator 50 12/08/16 23:10 84 14 50 12/08/16 21:01 70 14 50 12/08/16 20:45 Mechanical Ventilator 50 12/08/16 20:22 68 12/08/16 20:00 98.1 77 14 122/56 100 Mechanical Ventilator 50 12/08/16 20:00 50 12/08/16 19:14 85 14 50 12/08/16 17:48 89 14 50 12/08/16 15:35 97.5 72 19 112/65 100 Mechanical Ventilator 70 12/08/16 15:35 35 12/08/16 15:35 78 12/08/16 15:15 91 14 50 12/08/16 12:43 87 16 50 Height (Feet): 5 Height (Inches): 3.00 Weight (Pounds): 387 HEENT: anicteric Respiratory/Chest: no accessory muscle use Cardiovascular: regular rhythm Abdomen: no organomegaly Microbiology Date/Time Source Procedure Growth Status 12/07/16 12:50 Blood Blood Culture - Preliminary NO GROWTH AFTER 24 HOURS Resulted 12/07/16 12:40 Blood Blood Culture - Preliminary NO GROWTH AFTER 24 HOURS Resulted 12/07/16 12:15 Sputum Gram Stain - Final Resulted 12/07/16 12:15 Sputum Sputum Culture - Preliminary Resulted Laboratory Tests Test 12/09/16 03:25 White Blood Count 12.4 K/UL (4.8-10.8) H Red Blood Count 2.58 M/UL (4.20-5.40) L Hemoglobin 7.9 G/DL (12.0-16.0) L Hematocrit 25.9 % (37.0-47.0) L Mean Corpuscular Volume 100 FL (80-99) H Mean Corpuscular Hemoglobin 30.7 PG (27.0-31.0) Mean Corpuscular Hemoglobin Concent 30.6 G/DL (32.0-36.0) L Red Cell Distribution Width 20.0 % (11.6-14.8) H Platelet Count 129 K/UL (150-450) L Mean Platelet Volume 6.4 FL (6.5-10.1) L Neutrophils (%) (Auto) % (45.0-75.0) Lymphocytes (%) (Auto) % (20.0-45.0) Monocytes (%) (Auto) % (1.0-10.0) Eosinophils (%) (Auto) % (0.0-3.0) Basophils (%) (Auto) % (0.0-2.0) Sodium Level 135 MMOL/L (136-145) L Potassium Level 3.2 MMOL/L (3.5-5.1) L Chloride Level 96 MMOL/L (98-107) L Carbon Dioxide Level 34 MMOL/L (21-32) H Anion Gap 5 mmol/L (5-15) Blood Urea Nitrogen 20 mg/dL (7-18) H Creatinine 3.0 MG/DL (0.55-1.30) H Estimat Glomerular Filtration Rate mL/min (>60) Glucose Level 109 MG/DL (74-106) H Calcium Level 8.3 MG/DL (8.5-10.1) L Total Bilirubin 1.1 MG/DL (0.2-1.0) H Direct Bilirubin 0.6 MG/DL (0.0-0.3) H Aspartate Amino Transf (AST/SGOT) 16 U/L (15-37) Alanine Aminotransferase (ALT/SGPT) < 6 U/L (12-78) L Alkaline Phosphatase 98 U/L (46-116) Total Protein 6.9 G/DL (6.4-8.2) Albumin 1.9 G/DL (3.4-5.0) L Globulin 5.0 g/dL Albumin/Globulin Ratio 0.4 (1.0-2.7) L Current Medications Medications (Trade) Dose Ordered Sig/Kalyn Route PRN Reason Start Time Stop Time Status Last Admin Dose Admin Acetaminophen (Tylenol) 650 mg Q4H PRN ORAL Mild Pain/Temp > 100.5 12/03/16 15:00 12/12/16 14:59 12/07/16 09:17 Allopurinol (Zyloprim) 200 mg DAILY ORAL 12/04/16 09:00 01/02/17 08:59 12/09/16 09:15 Chlorhexidine Gluconate (Marni-Hex 2%) 1 applic Q24H TOPIC 12/03/16 20:00 12/27/16 19:59 12/08/16 20:00 Diphenhydramine HCl (Benadryl) 25 mg Q6H PRN IVP Itching 12/03/16 15:00 12/19/16 14:59 Docusate Sodium (Colace) 100 mg TWICE A DAY GT 12/04/16 09:00 01/03/17 08:59 12/08/16 18:07 Epoetin Santos (Procrit (for non ESRD use)) 10,000 units TUE-TUE-TUE SUBQ 12/03/16 21:00 12/17/16 20:59 12/09/16 04:47 Folic Acid (Folate) 1 mg DAILY ORAL 12/04/16 09:00 12/12/16 08:59 12/09/16 09:16 Gabapentin (Neurontin) 600 mg BID ORAL 12/03/16 18:00 12/14/16 08:59 12/09/16 09:16 Midodrine (Pro-Amatine) 10 mg EVERY 8 HOURS GT 12/05/16 22:00 01/04/17 21:59 12/09/16 05:40 Phosphorus (Phospha 250 Neutral) 500 mg THREE TIMES A DAY GT 12/07/16 18:00 01/06/17 17:59 12/09/16 09:14 Polyethylene Glycol (Miralax) 17 gm DAILY ORAL 12/04/16 09:00 12/12/16 08:59 12/08/16 09:13 Potassium Chloride 100 ml @ 50 mls/hr Q2H IVPB 12/09/16 09:45 12/09/16 13:44 12/09/16 09:30 Pravastatin Sodium (Pravachol) 20 mg BEDTIME ORAL 12/03/16 21:00 12/12/16 20:59 12/09/16 01:14 Ranitidine HCl (Zantac) 150 mg TWICE A DAY GT 12/05/16 18:00 01/04/17 17:59 12/09/16 09:14 Sildenafil Citrate (Revatio) 20 mg THREE TIMES A DAY ORAL 12/03/16 18:00 12/12/16 08:59 12/09/16 09:14 LINDSEY HILL M.D. 2, 2017 12:08
--- NOTE | 2016-12-09 13:49 | General Progress Note ---
Assessment/Plan Assessment/Plan This is a 76-year-old, morbidly obese female, admitted with anasarca and cellulitis of the lower leg. The patient was admitted to the directr observation unit on the monitor with the following medical problems. now transfered to icu as of 11-14-16, co of pruritis 1. Anasarca. She appears to be markedly swollen. She will need diuresis. Place the patient on Lasix 20 mg intravenous for now q.12 hours. Cardiology and Pulmonary on the case. We will follow orders. Check laboratory studies daily. Lasix drip was discontinued in am, HD started 2. Chronic hypercapnic respiratory failure. Continue with vent support per Pulmonary. will discuss with pulmonary regarding trach issues 3 anemia. s./p transfusion of PRBC Continue monitoring CBC daily. patient to start Procrit per nephrology 4. Pulmonary hypertension. hold Eliquis as patient is ob positive 5. Chronic kidney disease. On HD for now per nephrology. 6. DVT prophylaxis. scds 7. nutrition: patient didn't tolerate NGT placement, patient is now s/p PEG placement, tolerating tube feeding 8. Alkalosis: resolved 9. Generalized anxiety: Ativan prn, counselled for 15min 10. constipation: prn enema, continue with Colace and MiraLAX had revision of trach on 11-23-16 11. Anemia: one unit of PRBC today Benadryl 25 mg iv q 6 prn itching tolerating tube feeding continue HD per nephrology trach revision done by Dr. Powell discussed with nursing staff and Dr. Álvarez HD per nephrology in am continue current care Subjective Date patient seen: Dec 09, 2016 Allergies: Coded Allergies: AMOXICILLIN (Verified Allergy, Mild, RASH, 09/30/16) PENICILLINS (Unverified Allergy, Unknown, 09/30/16) All Systems: reviewed and negative except above Subjective patient had HD today, friend Sean at bedside Objective Last 24 Hour Vital Signs Date Time Temp Pulse Resp B/P (MAP) Pulse Ox O2 Delivery O2 Flow Rate FiO2 12/09/16 12:44 85 16 50 12/09/16 12:00 50 12/09/16 12:00 97.5 69 14 108/75 100 Mechanical Ventilator 50 12/09/16 12:00 71 12/09/16 10:54 81 16 50 12/09/16 09:00 50 12/09/16 08:42 78 14 50 12/09/16 08:00 72 12/09/16 08:00 97.5 70 14 103/75 93 Mechanical Ventilator 50 12/09/16 06:52 82 14 50 12/09/16 05:10 79 14 50 12/09/16 04:00 75 12/09/16 04:00 97.7 78 14 108/57 97 Mechanical Ventilator 50 12/09/16 04:00 50 12/09/16 03:20 81 14 50 12/09/16 01:12 75 14 50 12/09/16 00:00 50 12/08/16 23:58 Mechanical Ventilator 50 12/08/16 23:56 79 20 118/42 Mechanical Ventilator 50 12/08/16 23:10 84 14 50 12/08/16 21:01 70 14 50 12/08/16 20:45 Mechanical Ventilator 50 12/08/16 20:22 68 12/08/16 20:00 98.1 77 14 122/56 100 Mechanical Ventilator 50 12/08/16 20:00 50 12/08/16 19:14 85 14 50 12/08/16 17:48 89 14 50 12/08/16 15:35 97.5 72 19 112/65 100 Mechanical Ventilator 70 12/08/16 15:35 35 12/08/16 15:35 78 12/08/16 15:15 91 14 50 Intake and Output 12/09/16 12/10/16 19:00 07:00 Intake Total 100 ml Balance 100 ml IV Total 100 ml Laboratory Tests 12/09/16 03:25: White Blood Count 12.4H, Red Blood Count 2.58L, Hemoglobin 7.9L, Hematocrit 25.9L, Mean Corpuscular Volume 100H, Mean Corpuscular Hemoglobin 30.7, Mean Corpuscular Hemoglobin Concent 30.6L, Red Cell Distribution Width 20.0H, Platelet Count 129L, Mean Platelet Volume 6.4L, Neutrophils (%) (Auto) , Lymphocytes (%) (Auto) , Monocytes (%) (Auto) , Eosinophils (%) (Auto) , Basophils (%) (Auto) , Sodium Level 135L, Potassium Level 3.2L, Chloride Level 96L, Carbon Dioxide Level 34H, Anion Gap 5, Blood Urea Nitrogen 20H, Creatinine 3.0H, Estimat Glomerular Filtration Rate , Glucose Level 109H, Calcium Level 8.3L, Total Bilirubin 1.1H, Direct Bilirubin 0.6H, Aspartate Amino Transf (AST/ SGOT) 16, Alanine Aminotransferase (ALT/SGPT) < 6L, Alkaline Phosphatase 98, Total Protein 6.9, Albumin 1.9L, Globulin 5.0, Albumin/Globulin Ratio 0.4L Height (Feet): 5 Height (Inches): 3.00 Weight (Pounds): 387 General Appearance: obese EENT: PERRL/EOMI, pharynx normal Neck: non-tender, supple Cardiovascular: normal rate, regular rhythm, no gallop/murmur, no JVD Respiratory/Chest: decreased breath sounds Abdomen: distended Extremities: swelling Edema: 4+ Arm (L), 4+ Arm (R), 4+ Leg (L), 4+ Leg (R), 4+ Pedal (L), 4+ Pedal ( R), 4+ Generalized Edema: severe edema Skin: rash Manny Nolan MD Dec 09, 2016 13:49
--- NOTE | 2016-12-09 14:05 | Pulmonology Progress Note ---
Assessment/Plan Problems: (1) Chronic respiratory failure (2) Anasarca (3) ATN (acute tubular necrosis) (4) Anemia (5) Peripheral edema (6) Pickwickian syndrome (7) MINA (obstructive sleep apnea) (8) Morbid obesity Respiratory: monitor respiratory rate, adjust FIO2, CXR Cardiac: continue to monitor HR/BP Renal: F/U I&O, keep IV fluid Infectious Disease: check cultures Gastrointestinal: continue feedings/current rate, hold feedings Endocrine: check HgA1C, continue sliding scale insulin Hematologic: monitor H/H, transfuse if hgb<8.5 Neurologic: PRN Ativan, PRN Morphine, keep patient comfortable Prophylaxis: Protonix Time Spent (Minutes): 40 Notes Reviewed: cardio, renal 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: nurses, consultants, case management associate Subjective ROS Limited/Unobtainable: No Constitutional: Reports: no symptoms HEENT: Repors: no symptoms Respiratory: Reports: no symptoms Allergies: Coded Allergies: AMOXICILLIN (Verified Allergy, Mild, RASH, 09/30/16) PENICILLINS (Unverified Allergy, Unknown, 09/30/16) Objective Last 24 Hour Vital Signs Date Time Temp Pulse Resp B/P (MAP) Pulse Ox O2 Delivery O2 Flow Rate FiO2 12/09/16 12:44 85 16 50 12/09/16 12:00 50 12/09/16 12:00 97.5 69 14 108/75 100 Mechanical Ventilator 50 12/09/16 12:00 71 12/09/16 10:54 81 16 50 12/09/16 09:00 50 12/09/16 08:42 78 14 50 12/09/16 08:00 72 12/09/16 08:00 97.5 70 14 103/75 93 Mechanical Ventilator 50 12/09/16 06:52 82 14 50 12/09/16 05:10 79 14 50 12/09/16 04:00 75 12/09/16 04:00 97.7 78 14 108/57 97 Mechanical Ventilator 50 12/09/16 04:00 50 12/09/16 03:20 81 14 50 12/09/16 01:12 75 14 50 12/09/16 00:00 50 12/08/16 23:58 Mechanical Ventilator 50 12/08/16 23:56 79 20 118/42 Mechanical Ventilator 50 12/08/16 23:10 84 14 50 12/08/16 21:01 70 14 50 12/08/16 20:45 Mechanical Ventilator 50 12/08/16 20:22 68 12/08/16 20:00 98.1 77 14 122/56 100 Mechanical Ventilator 50 12/08/16 20:00 50 12/08/16 19:14 85 14 50 12/08/16 17:48 89 14 50 12/08/16 15:35 97.5 72 19 112/65 100 Mechanical Ventilator 70 12/08/16 15:35 35 12/08/16 15:35 78 12/08/16 15:15 91 14 50 Intake and Output 12/09/16 12/10/16 19:00 07:00 Intake Total 100 ml Balance 100 ml IV Total 100 ml General Appearance: WD/WN HEENT: normocephalic, atraumatic Respiratory/Chest: chest wall non-tender, lungs clear Breasts: no masses Cardiovascular: normal peripheral pulses, normal rate Abdomen: normal bowel sounds, soft, non tender Genitourinary: normal external genitalia Extremities: no cyanosis Skin: no ulcers Neurologic/Psychiatric: supervisor tile and mottle II-XII grossly normal Lymphatic: no neck adenopathy Microbiology Date/Time Source Procedure Growth Status 12/07/16 12:50 Blood Blood Culture - Preliminary NO GROWTH AFTER 24 HOURS Resulted 12/07/16 12:40 Blood Blood Culture - Preliminary NO GROWTH AFTER 24 HOURS Resulted 12/07/16 12:15 Sputum Gram Stain - Final Resulted 12/07/16 12:15 Sputum Sputum Culture - Preliminary Resulted Laboratory Tests 12/09/16 03:25: White Blood Count 12.4H, Red Blood Count 2.58L, Hemoglobin 7.9L, Hematocrit 25.9L, Mean Corpuscular Volume 100H, Mean Corpuscular Hemoglobin 30.7, Mean Corpuscular Hemoglobin Concent 30.6L, Red Cell Distribution Width 20.0H, Platelet Count 129L, Mean Platelet Volume 6.4L, Neutrophils (%) (Auto) , Lymphocytes (%) (Auto) , Monocytes (%) (Auto) , Eosinophils (%) (Auto) , Basophils (%) (Auto) , Sodium Level 135L, Potassium Level 3.2L, Chloride Level 96L, Carbon Dioxide Level 34H, Anion Gap 5, Blood Urea Nitrogen 20H, Creatinine 3.0H, Estimat Glomerular Filtration Rate , Glucose Level 109H, Calcium Level 8.3L, Total Bilirubin 1.1H, Direct Bilirubin 0.6H, Aspartate Amino Transf (AST/ SGOT) 16, Alanine Aminotransferase (ALT/SGPT) < 6L, Alkaline Phosphatase 98, Total Protein 6.9, Albumin 1.9L, Globulin 5.0, Albumin/Globulin Ratio 0.4L Current Medications Medications (Trade) Dose Ordered Sig/Kalyn Route PRN Reason Start Time Stop Time Status Last Admin Dose Admin Acetaminophen (Tylenol) 650 mg Q4H PRN ORAL Mild Pain/Temp > 100.5 12/03/16 15:00 12/12/16 14:59 12/07/16 09:17 Allopurinol (Zyloprim) 200 mg DAILY ORAL 12/04/16 09:00 01/02/17 08:59 12/09/16 09:15 Chlorhexidine Gluconate (Marni-Hex 2%) 1 applic Q24H TOPIC 12/03/16 20:00 12/27/16 19:59 12/08/16 20:00 Diphenhydramine HCl (Benadryl) 25 mg Q6H PRN IVP Itching 12/03/16 15:00 12/19/16 14:59 Docusate Sodium (Colace) 100 mg TWICE A DAY GT 12/04/16 09:00 01/03/17 08:59 12/08/16 18:07 Epoetin Santos (Procrit (for non ESRD use)) 10,000 units TUE-TUE-TUE SUBQ 12/03/16 21:00 12/17/16 20:59 12/09/16 04:47 Folic Acid (Folate) 1 mg DAILY ORAL 12/04/16 09:00 12/12/16 08:59 12/09/16 09:16 Gabapentin (Neurontin) 600 mg BID ORAL 12/03/16 18:00 12/14/16 08:59 12/09/16 09:16 Midodrine (Pro-Amatine) 10 mg EVERY 8 HOURS GT 12/05/16 22:00 01/04/17 21:59 12/09/16 05:40 Phosphorus (Phospha 250 Neutral) 500 mg THREE TIMES A DAY GT 12/07/16 18:00 01/06/17 17:59 12/09/16 13:03 Polyethylene Glycol (Miralax) 17 gm DAILY ORAL 12/04/16 09:00 12/12/16 08:59 12/08/16 09:13 Pravastatin Sodium (Pravachol) 20 mg BEDTIME ORAL 12/03/16 21:00 12/12/16 20:59 12/09/16 01:14 Ranitidine HCl (Zantac) 150 mg TWICE A DAY GT 12/05/16 18:00 01/04/17 17:59 12/09/16 09:14 Sildenafil Citrate (Revatio) 20 mg THREE TIMES A DAY ORAL 12/03/16 18:00 12/12/16 08:59 12/09/16 13:03 ARASH MIRANDA Dec 09, 2016 14:05
[2016-12-09 16:00] VITALS: BP 101/57
--- NOTE | 2016-12-09 18:14 | General Progress Note ---
Assessment/Plan Status: stable Assessment/Plan Cellulitis BLE and R arm- in the setting of chronic leg edema- r/o DVT Anasarca/ bilateral leg lymphedema CKD- and acute renal failure - Acute respiratory failure s/p Trach Obese COPD , CHF, Diastolic MINA UTI Anemia GI Bleed, GI bleeding At Fib Pulm HTN h/o Low B12 plan: Now has PEG HD 12/10 K supplement as needed on EPOGEN 24 H urine collection in process: CrCl 6 Monitor renal parameters- optimize cardiac and pulm status avoid nephrotoxics- pulmonary support- transfuse as needed ? DC planning post PEG Subjective ROS Limited/Unobtainable: No Constitutional: Reports: malaise Allergies: Coded Allergies: AMOXICILLIN (Verified Allergy, Mild, RASH, 09/30/16) PENICILLINS (Unverified Allergy, Unknown, 09/30/16) Objective Last 24 Hour Vital Signs Date Time Temp Pulse Resp B/P (MAP) Pulse Ox O2 Delivery O2 Flow Rate FiO2 12/09/16 16:55 68 16 50 12/09/16 16:00 69 12/09/16 16:00 97.3 68 14 101/57 97 Mechanical Ventilator 50 12/09/16 16:00 50 12/09/16 14:50 75 16 50 12/09/16 12:44 85 16 50 12/09/16 12:00 50 12/09/16 12:00 97.5 69 14 108/75 100 Mechanical Ventilator 50 12/09/16 12:00 71 12/09/16 10:54 81 16 50 12/09/16 09:00 50 12/09/16 08:42 78 14 50 12/09/16 08:00 72 12/09/16 08:00 97.5 70 14 103/75 93 Mechanical Ventilator 50 12/09/16 06:52 82 14 50 12/09/16 05:10 79 14 50 12/09/16 04:00 75 12/09/16 04:00 97.7 78 14 108/57 97 Mechanical Ventilator 50 12/09/16 04:00 50 12/09/16 03:20 81 14 50 12/09/16 01:12 75 14 50 12/09/16 00:00 50 12/08/16 23:58 Mechanical Ventilator 50 12/08/16 23:56 79 20 118/42 Mechanical Ventilator 50 12/08/16 23:10 84 14 50 12/08/16 21:01 70 14 50 12/08/16 20:45 Mechanical Ventilator 50 12/08/16 20:22 68 12/08/16 20:00 98.1 77 14 122/56 100 Mechanical Ventilator 50 12/08/16 20:00 50 12/08/16 19:14 85 14 50 Intake and Output 12/09/16 12/10/16 19:00 07:00 Intake Total 790 ml Output Total 200 ml Balance 590 ml Free Water 150 ml IV Total 200 ml Tube Feeding 440 ml Stool Total 200 ml # Bowel Movements 3 Laboratory Tests 12/09/16 03:25: White Blood Count 12.4H, Red Blood Count 2.58L, Hemoglobin 7.9L, Hematocrit 25.9L, Mean Corpuscular Volume 100H, Mean Corpuscular Hemoglobin 30.7, Mean Corpuscular Hemoglobin Concent 30.6L, Red Cell Distribution Width 20.0H, Platelet Count 129L, Mean Platelet Volume 6.4L, Neutrophils (%) (Auto) , Lymphocytes (%) (Auto) , Monocytes (%) (Auto) , Eosinophils (%) (Auto) , Basophils (%) (Auto) , Sodium Level 135L, Potassium Level 3.2L, Chloride Level 96L, Carbon Dioxide Level 34H, Anion Gap 5, Blood Urea Nitrogen 20H, Creatinine 3.0H, Estimat Glomerular Filtration Rate , Glucose Level 109H, Calcium Level 8.3L, Total Bilirubin 1.1H, Direct Bilirubin 0.6H, Aspartate Amino Transf (AST/ SGOT) 16, Alanine Aminotransferase (ALT/SGPT) < 6L, Alkaline Phosphatase 98, Total Protein 6.9, Albumin 1.9L, Globulin 5.0, Albumin/Globulin Ratio 0.4L Height (Feet): 5 Height (Inches): 3.00 Weight (Pounds): 387 General Appearance: other EENT: other - trach Cardiovascular: normal rate Respiratory/Chest: decreased breath sounds Abdomen: other - PEg Objective much less edematous COURTNEY LOPEZ Dec 09, 2016 18:14
[2016-12-09 20:00] VITALS: BP 127/66
[2016-12-09] MEDS: Dyna-Hex 2% Top Sol 2oz TOPIC SCH (20:28)
--- NOTE | 2016-12-09 20:32 | Cardiology Progress Note ---
Assessment/Plan Assessment/Plan 1. Permanent atrial fibrillation. 2. Chronic respiratory failure, on a mechanical ventilator. 3. Cor pulmonale. 4. Pulmonary hypertension. 5. Acute renal failure, now on dialysis. 6. Anemia. 7. Significant edema. 8. Hypoalbuminemia. 9. stool ob + bp ok today on vent remain in afib stool now ob + no anticoagulation for now hd in am Subjective ROS Limited/Unobtainable: Yes Subjective on the vent awake Objective Last 24 Hour Vital Signs Date Time Temp Pulse Resp B/P (MAP) Pulse Ox O2 Delivery O2 Flow Rate FiO2 12/09/16 16:55 68 16 50 12/09/16 16:00 69 12/09/16 16:00 97.3 68 14 101/57 97 Mechanical Ventilator 50 12/09/16 16:00 50 12/09/16 14:50 75 16 50 12/09/16 12:44 85 16 50 12/09/16 12:00 50 12/09/16 12:00 97.5 69 14 108/75 100 Mechanical Ventilator 50 12/09/16 12:00 71 12/09/16 10:54 81 16 50 12/09/16 09:00 50 12/09/16 08:42 78 14 50 12/09/16 08:00 72 12/09/16 08:00 97.5 70 14 103/75 93 Mechanical Ventilator 50 12/09/16 06:52 82 14 50 12/09/16 05:10 79 14 50 12/09/16 04:00 75 12/09/16 04:00 97.7 78 14 108/57 97 Mechanical Ventilator 50 12/09/16 04:00 50 12/09/16 03:20 81 14 50 12/09/16 01:12 75 14 50 12/09/16 00:00 50 12/08/16 23:58 Mechanical Ventilator 50 12/08/16 23:56 79 20 118/42 Mechanical Ventilator 50 12/08/16 23:10 84 14 50 12/08/16 21:01 70 14 50 12/08/16 20:45 Mechanical Ventilator 50 General Appearance: no apparent distress, alert, obese, on vent Intake and Output 12/09/16 12/10/16 19:00 07:00 Intake Total 790 ml Output Total 200 ml Balance 590 ml Free Water 150 ml IV Total 200 ml Tube Feeding 440 ml Stool Total 200 ml # Bowel Movements 3 Laboratory Tests Test 12/09/16 03:25 White Blood Count 12.4 K/UL (4.8-10.8) H Red Blood Count 2.58 M/UL (4.20-5.40) L Hemoglobin 7.9 G/DL (12.0-16.0) L Hematocrit 25.9 % (37.0-47.0) L Mean Corpuscular Volume 100 FL (80-99) H Mean Corpuscular Hemoglobin 30.7 PG (27.0-31.0) Mean Corpuscular Hemoglobin Concent 30.6 G/DL (32.0-36.0) L Red Cell Distribution Width 20.0 % (11.6-14.8) H Platelet Count 129 K/UL (150-450) L Mean Platelet Volume 6.4 FL (6.5-10.1) L Neutrophils (%) (Auto) % (45.0-75.0) Lymphocytes (%) (Auto) % (20.0-45.0) Monocytes (%) (Auto) % (1.0-10.0) Eosinophils (%) (Auto) % (0.0-3.0) Basophils (%) (Auto) % (0.0-2.0) Sodium Level 135 MMOL/L (136-145) L Potassium Level 3.2 MMOL/L (3.5-5.1) L Chloride Level 96 MMOL/L (98-107) L Carbon Dioxide Level 34 MMOL/L (21-32) H Anion Gap 5 mmol/L (5-15) Blood Urea Nitrogen 20 mg/dL (7-18) H Creatinine 3.0 MG/DL (0.55-1.30) H Estimat Glomerular Filtration Rate mL/min (>60) Glucose Level 109 MG/DL (74-106) H Calcium Level 8.3 MG/DL (8.5-10.1) L Total Bilirubin 1.1 MG/DL (0.2-1.0) H Direct Bilirubin 0.6 MG/DL (0.0-0.3) H Aspartate Amino Transf (AST/SGOT) 16 U/L (15-37) Alanine Aminotransferase (ALT/SGPT) < 6 U/L (12-78) L Alkaline Phosphatase 98 U/L (46-116) Total Protein 6.9 G/DL (6.4-8.2) Albumin 1.9 G/DL (3.4-5.0) L Globulin 5.0 g/dL Albumin/Globulin Ratio 0.4 (1.0-2.7) L Microbiology Date/Time Source Procedure Growth Status 12/07/16 12:50 Blood Blood Culture - Preliminary NO GROWTH AFTER 24 HOURS Resulted 12/07/16 12:40 Blood Blood Culture - Preliminary NO GROWTH AFTER 24 HOURS Resulted 12/07/16 12:15 Sputum Gram Stain - Final Resulted 12/07/16 12:15 Sputum Sputum Culture - Preliminary Resulted BRIANA TELLES Dec 09, 2016 20:32
--- NOTE | 2016-12-09 22:10 | General Progress Note ---
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 Will give Vitamin K and then repeat mixing study. --> Vitamin K has been given, results pending #. Anemia secondary to chronic disease. Continue to closely monitor. Work up reviewed --> s/p multiple transfusions. watch counts, transfuse if hgb is below 8. # Positive occult blood. r/o gi bleed. gi following #. Anemia of kidney disease. Nephrology service following #. PEG tube placement. tolerating feeds #. Chronic ventilator dependent #. Permanent atrial fibrillation. #. Cellulitis and chronic lymphedema of the bilateral lower extremities. #. Congestive heart failure. Subjective ROS Limited/Unobtainable: Yes Allergies: Coded Allergies: AMOXICILLIN (Verified Allergy, Mild, RASH, 09/30/16) PENICILLINS (Unverified Allergy, Unknown, 09/30/16) Subjective NAD Objective Last 24 Hour Vital Signs Date Time Temp Pulse Resp B/P (MAP) Pulse Ox O2 Delivery O2 Flow Rate FiO2 12/09/16 21:08 77 16 50 12/09/16 20:00 50 12/09/16 20:00 97.9 85 14 127/66 96 Mechanical Ventilator 50 12/09/16 19:50 90 16 50 12/09/16 16:55 68 16 50 12/09/16 16:00 69 12/09/16 16:00 97.3 68 14 101/57 97 Mechanical Ventilator 50 12/09/16 16:00 50 12/09/16 14:50 75 16 50 12/09/16 12:44 85 16 50 12/09/16 12:00 50 12/09/16 12:00 97.5 69 14 108/75 100 Mechanical Ventilator 50 12/09/16 12:00 71 12/09/16 10:54 81 16 50 12/09/16 09:00 50 12/09/16 08:42 78 14 50 12/09/16 08:00 72 12/09/16 08:00 97.5 70 14 103/75 93 Mechanical Ventilator 50 12/09/16 06:52 82 14 50 12/09/16 05:10 79 14 50 12/09/16 04:00 75 12/09/16 04:00 97.7 78 14 108/57 97 Mechanical Ventilator 50 12/09/16 04:00 50 12/09/16 03:20 81 14 50 12/09/16 01:12 75 14 50 12/09/16 00:00 50 12/08/16 23:58 Mechanical Ventilator 50 12/08/16 23:56 79 20 118/42 Mechanical Ventilator 50 12/08/16 23:10 84 14 50 Intake and Output 12/09/16 12/10/16 19:00 07:00 Intake Total 790 ml Output Total 200 ml Balance 590 ml Free Water 150 ml IV Total 200 ml Tube Feeding 440 ml Stool Total 200 ml # Bowel Movements 3 Laboratory Tests 12/09/16 03:25: White Blood Count 12.4H, Red Blood Count 2.58L, Hemoglobin 7.9L, Hematocrit 25.9L, Mean Corpuscular Volume 100H, Mean Corpuscular Hemoglobin 30.7, Mean Corpuscular Hemoglobin Concent 30.6L, Red Cell Distribution Width 20.0H, Platelet Count 129L, Mean Platelet Volume 6.4L, Neutrophils (%) (Auto) , Lymphocytes (%) (Auto) , Monocytes (%) (Auto) , Eosinophils (%) (Auto) , Basophils (%) (Auto) , Sodium Level 135L, Potassium Level 3.2L, Chloride Level 96L, Carbon Dioxide Level 34H, Anion Gap 5, Blood Urea Nitrogen 20H, Creatinine 3.0H, Estimat Glomerular Filtration Rate , Glucose Level 109H, Calcium Level 8.3L, Total Bilirubin 1.1H, Direct Bilirubin 0.6H, Aspartate Amino Transf (AST/ SGOT) 16, Alanine Aminotransferase (ALT/SGPT) < 6L, Alkaline Phosphatase 98, Total Protein 6.9, Albumin 1.9L, Globulin 5.0, Albumin/Globulin Ratio 0.4L Height (Feet): 5 Height (Inches): 3.00 Weight (Pounds): 387 General Appearance: no apparent distress, lethargic EENT: normal ENT inspection Neck: normal alignment Cardiovascular: regular rhythm Respiratory/Chest: lungs clear, no accessory muscle use Neurologic: engine repairer production II-XII grossly normal Skin: normal pigmentation, warm/dry NAIDA MANJARREZ Dec 09, 2016 22:10
[2016-12-10] VITALS (7 sets, daily range): BP systolic 95–153; BP diastolic 37–63
[2016-12-10 03:45] LABS: BASOPHILS % (AUTO) 1.2 % (0.0-2.0); EOSINOPHILS % (AUTO) 1.1 % (0.0-3.0); LYMPHOCYTES % (AUTO) 7.9 % (20.0-45.0); MEAN CORPUSCULAR HEMOGLOBIN 31.1 PG (27.0-31.0); MEAN CORPUSCULAR HGB CONC 30.9 G/DL (32.0-36.0); MEAN CORPUSCULAR VOLUME 101 FL (80-99); MEAN PLATELET VOLUME 6.6 FL (6.5-10.1); MONOCYTES % (AUTO) 10.9 % (1.0-10.0); NEUTROPHILS % (AUTO) 78.9 % (45.0-75.0); PLATELET COUNT 137 K/UL (150-450); RED BLOOD COUNT 2.68 M/UL (4.20-5.40); RED CELL DISTRIBUTION WIDTH 19.9 % (11.6-14.8); WHITE BLOOD COUNT 11.9 K/UL (4.8-10.8)
[2016-12-10 03:52] LABS: INR 1.2 (0.9-1.1); PROTHROMBIN TIME 12.5 SEC (9.30-11.50)
[2016-12-10 03:55] LABS: ALANINE AMINOTRANSFERASE < 6 U/L (12-78); ALBUMIN/GLOBULIN RATIO 0.3 (1.0-2.7); ANION GAP 5 mmol/L (5-15); ASPARTATE AMINO TRANSFERASE 16 U/L (15-37); CALCIUM 8.5 MG/DL (8.5-10.1); CARBON DIOXIDE 34 MMOL/L (21-32); CHLORIDE 97 MMOL/L (98-107); CREATININE 3.3 MG/DL (0.55-1.30); POTASSIUM 3.6 MMOL/L (3.5-5.1); SODIUM 136 MMOL/L (136-145)
[2016-12-10 04:03] LABS: MAGNESIUM 1.7 MG/DL (1.8-2.4); PHOSPHORUS 3.8 MG/DL (2.5-4.9)
[2016-12-10 04:28] LABS: BILIRUBIN,DIRECT 0.6 MG/DL (0.0-0.3)
[2016-12-10] MEDS: Midodrine 10mg tab GT SCH ×3 (05:54→21:02)
[2016-12-10] MEDS: Docusate 100mg/10ml Liq GT SCH ×2 (09:00→18:00)
[2016-12-10] MEDS: Revatio 20mg tab ORAL SCH ×3 (09:00→18:37)
[2016-12-10] MEDS: Allopurinol 100mg Tab ORAL SCH (09:00)
[2016-12-10] MEDS: Phospha 250 Neutral tab GT SCH ×3 (09:00→18:38)
[2016-12-10] MEDS: Miralax 17gm pkt ORAL SCH (09:00)
--- NOTE | 2016-12-10 10:37 | GI Progress Note ---
Assessment/Plan Problems: (1) Positive occult stool blood test ICD Codes: R19.5 - Other fecal abnormalities SNOMED: 52647064, 425673939 (2) Morbid obesity ICD Codes: E66.01 - Morbid (severe) obesity due to excess calories SNOMED: 068518763, 37507888835699 (3) Anemia ICD Codes: D64.9 - Anemia, unspecified SNOMED: 466205927 (4) PEG (percutaneous endoscopic gastrostomy) adjustment/replacement/removal ICD Codes: Z43.1 - Encounter for attention to gastrostomy SNOMED: 216269333, 008797407 Status: unchanged Status Narrative 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 Dr. Noriega. Assessment/Plan s/p PEG GTF per dietary at goal fu pulmonary recs bowel regime ppi fu labs Subjective Subjective limited Objective Last 24 Hour Vital Signs Date Time Temp Pulse Resp B/P (MAP) Pulse Ox O2 Delivery O2 Flow Rate FiO2 12/10/16 09:06 74 14 50 12/10/16 08:00 50 12/10/16 08:00 98.0 85 16 119/62 94 Mechanical Ventilator 50 12/10/16 07:13 71 14 50 12/10/16 05:23 86 14 50 12/10/16 04:00 98.4 82 14 105/37 99 Mechanical Ventilator 50 12/10/16 04:00 50 12/10/16 04:00 75 12/10/16 03:18 70 14 50 12/10/16 01:25 69 14 50 12/10/16 00:00 98.2 84 14 153/63 97 Mechanical Ventilator 50 12/10/16 00:00 50 12/10/16 00:00 83 12/09/16 23:29 68 14 50 12/09/16 22:26 87 20 Mechanical Ventilator 50 12/09/16 21:08 77 16 50 12/09/16 20:00 50 12/09/16 20:00 87 12/09/16 20:00 97.9 85 14 127/66 96 Mechanical Ventilator 50 12/09/16 19:50 90 16 50 12/09/16 16:55 68 16 50 12/09/16 16:00 69 12/09/16 16:00 97.3 68 14 101/57 97 Mechanical Ventilator 50 12/09/16 16:00 50 12/09/16 14:50 75 16 50 12/09/16 12:44 85 16 50 12/09/16 12:00 50 12/09/16 12:00 97.5 69 14 108/75 100 Mechanical Ventilator 50 12/09/16 12:00 71 12/09/16 10:54 81 16 50 Laboratory Tests Test 12/10/16 02:45 White Blood Count 11.9 K/UL (4.8-10.8) H Red Blood Count 2.68 M/UL (4.20-5.40) L Hemoglobin 8.3 G/DL (12.0-16.0) L Hematocrit 27.0 % (37.0-47.0) L Mean Corpuscular Volume 101 FL (80-99) H Mean Corpuscular Hemoglobin 31.1 PG (27.0-31.0) H Mean Corpuscular Hemoglobin Concent 30.9 G/DL (32.0-36.0) L Red Cell Distribution Width 19.9 % (11.6-14.8) H Platelet Count 137 K/UL (150-450) L Mean Platelet Volume 6.6 FL (6.5-10.1) Neutrophils (%) (Auto) 78.9 % (45.0-75.0) H Lymphocytes (%) (Auto) 7.9 % (20.0-45.0) L Monocytes (%) (Auto) 10.9 % (1.0-10.0) H Eosinophils (%) (Auto) 1.1 % (0.0-3.0) Basophils (%) (Auto) 1.2 % (0.0-2.0) Prothrombin Time 12.5 SEC (9.30-11.50) H Prothromb Time International Ratio 1.2 (0.9-1.1) H Activated Partial Thromboplast Time 31 SEC (23-33) Sodium Level 136 MMOL/L (136-145) Potassium Level 3.6 MMOL/L (3.5-5.1) Chloride Level 97 MMOL/L (98-107) L Carbon Dioxide Level 34 MMOL/L (21-32) H Anion Gap 5 mmol/L (5-15) Blood Urea Nitrogen 24 mg/dL (7-18) H Creatinine 3.3 MG/DL (0.55-1.30) H Estimat Glomerular Filtration Rate mL/min (>60) Glucose Level 143 MG/DL (74-106) H Calcium Level 8.5 MG/DL (8.5-10.1) Phosphorus Level 3.8 MG/DL (2.5-4.9) Magnesium Level 1.7 MG/DL (1.8-2.4) L Total Bilirubin 1.1 MG/DL (0.2-1.0) H Direct Bilirubin 0.6 MG/DL (0.0-0.3) H Aspartate Amino Transf (AST/SGOT) 16 U/L (15-37) Alanine Aminotransferase (ALT/SGPT) < 6 U/L (12-78) L Alkaline Phosphatase 99 U/L (46-116) Total Protein 7.0 G/DL (6.4-8.2) Albumin 1.8 G/DL (3.4-5.0) L Globulin 5.2 g/dL Albumin/Globulin Ratio 0.3 (1.0-2.7) L Height (Feet): 5 Height (Inches): 3.00 Weight (Pounds): 387 General Appearance: no apparent distress, alert, obese Cardiovascular: normal rate Respiratory/Chest: normal breath sounds, no respiratory distress, other - mech vent Abdominal Exam: normal bowel sounds, non tender, soft, GT site - c/d/i Extremities: non-tender Kateryna Sherman N.P. Dec 10, 2016 10:37
--- NOTE | 2016-12-10 10:53 | Nephrology Progress Note ---
Assessment/Plan Problem List: (1) Renal failure Assessment: CKD + ACUTE (2) Acute and chronic respiratory failure (3) CHF (congestive heart failure) (4) Morbid obesity (5) Atrial fibrillation Assessment CKD- and acute renal failure - Acute respiratory failure s/p Trach Obese COPD , CHF, Diastolic MINA UTI Anemia GI Bleed, GI bleeding At Fib Pulm HTN h/o Low B12 Plan plan: Now has PEG HD 12/10, in process K supplement as needed on EPOGEN 24 H urine collection in process: CrCl 6 Monitor renal parameters- optimize cardiac and pulm status pulmonary support- transfuse as needed ? DC planning post PEG, placement is complicated Subjective ROS Limited/Unobtainable: No Constitutional: Reports: malaise Objective Objective Last 24 Hour Vital Signs Date Time Temp Pulse Resp B/P (MAP) Pulse Ox O2 Delivery O2 Flow Rate FiO2 12/10/16 09:06 74 14 50 12/10/16 08:00 50 12/10/16 08:00 98.0 85 16 119/62 94 Mechanical Ventilator 50 12/10/16 07:30 74 12/10/16 07:13 71 14 50 12/10/16 05:23 86 14 50 12/10/16 04:00 98.4 82 14 105/37 99 Mechanical Ventilator 50 12/10/16 04:00 50 12/10/16 04:00 75 12/10/16 03:18 70 14 50 12/10/16 01:25 69 14 50 12/10/16 00:00 98.2 84 14 153/63 97 Mechanical Ventilator 50 12/10/16 00:00 50 12/10/16 00:00 83 12/09/16 23:29 68 14 50 12/09/16 22:26 87 20 Mechanical Ventilator 50 12/09/16 21:08 77 16 50 12/09/16 20:00 50 12/09/16 20:00 87 12/09/16 20:00 97.9 85 14 127/66 96 Mechanical Ventilator 50 12/09/16 19:50 90 16 50 12/09/16 16:55 68 16 50 12/09/16 16:00 69 12/09/16 16:00 97.3 68 14 101/57 97 Mechanical Ventilator 50 12/09/16 16:00 50 12/09/16 14:50 75 16 50 12/09/16 12:44 85 16 50 12/09/16 12:00 50 12/09/16 12:00 97.5 69 14 108/75 100 Mechanical Ventilator 50 12/09/16 12:00 71 12/09/16 10:54 81 16 50 Laboratory Tests 12/10/16 02:45: White Blood Count 11.9H, Red Blood Count 2.68L, Hemoglobin 8.3L, Hematocrit 27.0L, Mean Corpuscular Volume 101H, Mean Corpuscular Hemoglobin 31.1H, Mean Corpuscular Hemoglobin Concent 30.9L, Red Cell Distribution Width 19.9H, Platelet Count 137L, Mean Platelet Volume 6.6, Neutrophils (%) (Auto) 78.9H, Lymphocytes (%) (Auto) 7.9L, Monocytes (%) (Auto) 10.9H, Eosinophils (%) (Auto) 1.1, Basophils (%) (Auto) 1.2, Prothrombin Time 12.5H, Prothromb Time International Ratio 1.2H, Activated Partial Thromboplast Time 31, Sodium Level 136, Potassium Level 3.6, Chloride Level 97L, Carbon Dioxide Level 34H, Anion Gap 5, Blood Urea Nitrogen 24H, Creatinine 3.3H, Estimat Glomerular Filtration Rate , Glucose Level 143H, Calcium Level 8.5, Phosphorus Level 3.8, Magnesium Level 1.7L, Total Bilirubin 1.1H, Direct Bilirubin 0.6H, Aspartate Amino Transf (AST/SGOT) 16, Alanine Aminotransferase (ALT/SGPT) < 6L, Alkaline Phosphatase 99 , Total Protein 7.0, Albumin 1.8L, Globulin 5.2, Albumin/Globulin Ratio 0.3L Height (Feet): 5 Height (Inches): 3.00 Weight (Pounds): 387 General Appearance: other - trach Cardiovascular: normal rate Respiratory/Chest: decreased breath sounds Abdomen: other - PEG Objective edema extrs COURTNEY LOPEZ Dec 10, 2016 10:53
--- NOTE | 2016-12-10 12:14 | Infectious Diseases Prog Note ---
Assessment/Plan Assessment/Plan Assesment: Leukocytosis , mild improved, ,afebrile Cellulitis BLE and R arm- in the setting of chronic leg edema/venous stasis, s/ p Rx- Limited Venous duplex BLE (non diagnostic), no DVT R arm;Cellulitis resolved;Now residual venous stasis changes. -Bcx Neg Anasarca/ bilateral leg lymphedema -CXR 12/04: Improved although persistent right lung parenchymal infiltrates versus edema, over one day. -CXR 12/03:Bilateral interstitial and alveolar edema persists VRE colonzied Anemia COPD Diastolic CHF Renal insufficiency- acute on chronic- started on HD 11/24 chronic resp failure, vent/trach dependent Gtbue pAfib pleural effusion MINA CKD GERD morbid obesity OR resident Plan: -Continue to monitor off abx IV Vancomycin 11/11-11/12; 11/17-11/26 IV Cefepime 11/11-11/12 IV Ancef 11/12-11/28 Flagyl x1 11/11 -extremity elevation -edema management -Monitor CBC/BMP, - vent support, trach care, aspiration precautions Subjective Constitutional: Denies: no symptoms, fever, chills, fatigue, anorexia, drenching sweats, other Allergies: Coded Allergies: AMOXICILLIN (Verified Allergy, Mild, RASH, 09/30/16) PENICILLINS (Unverified Allergy, Unknown, 09/30/16) Subjective Afebrile Objective Vital Signs Last 24 Hour Vital Signs Date Time Temp Pulse Resp B/P (MAP) Pulse Ox O2 Delivery O2 Flow Rate FiO2 12/10/16 12:00 50 12/10/16 11:30 Mechanical Ventilator 50 12/10/16 10:53 86 14 50 12/10/16 09:06 74 14 50 12/10/16 08:25 Mechanical Ventilator 50 12/10/16 08:00 50 12/10/16 08:00 98.0 85 16 119/62 94 Mechanical Ventilator 50 12/10/16 07:30 74 12/10/16 07:13 71 14 50 12/10/16 05:23 86 14 50 12/10/16 04:00 98.4 82 14 105/37 99 Mechanical Ventilator 50 12/10/16 04:00 50 12/10/16 04:00 75 12/10/16 03:18 70 14 50 12/10/16 01:25 69 14 50 12/10/16 00:00 98.2 84 14 153/63 97 Mechanical Ventilator 50 12/10/16 00:00 50 12/10/16 00:00 83 12/09/16 23:29 68 14 50 12/09/16 22:26 87 20 Mechanical Ventilator 50 12/09/16 21:08 77 16 50 12/09/16 20:00 50 12/09/16 20:00 87 12/09/16 20:00 97.9 85 14 127/66 96 Mechanical Ventilator 50 12/09/16 19:50 90 16 50 12/09/16 16:55 68 16 50 12/09/16 16:00 69 12/09/16 16:00 97.3 68 14 101/57 97 Mechanical Ventilator 50 12/09/16 16:00 50 12/09/16 14:50 75 16 50 12/09/16 12:44 85 16 50 Height (Feet): 5 Height (Inches): 3.00 Weight (Pounds): 387 HEENT: anicteric Respiratory/Chest: normal breath sounds Cardiovascular: regular rhythm Abdomen: no organomegaly Microbiology Date/Time Source Procedure Growth Status 12/07/16 12:50 Blood Blood Culture - Preliminary NO GROWTH AFTER 48 HOURS Resulted 12/07/16 12:40 Blood Blood Culture - Preliminary NO GROWTH AFTER 48 HOURS Resulted 12/07/16 12:15 Sputum Gram Stain - Final Resulted 12/07/16 12:15 Sputum Culture - Preliminary Gram Negative Bacillus 1 Gram Negative Bacillus 2 Resulted Laboratory Tests Test 12/10/16 02:45 White Blood Count 11.9 K/UL (4.8-10.8) H Red Blood Count 2.68 M/UL (4.20-5.40) L Hemoglobin 8.3 G/DL (12.0-16.0) L Hematocrit 27.0 % (37.0-47.0) L Mean Corpuscular Volume 101 FL (80-99) H Mean Corpuscular Hemoglobin 31.1 PG (27.0-31.0) H Mean Corpuscular Hemoglobin Concent 30.9 G/DL (32.0-36.0) L Red Cell Distribution Width 19.9 % (11.6-14.8) H Platelet Count 137 K/UL (150-450) L Mean Platelet Volume 6.6 FL (6.5-10.1) Neutrophils (%) (Auto) 78.9 % (45.0-75.0) H Lymphocytes (%) (Auto) 7.9 % (20.0-45.0) L Monocytes (%) (Auto) 10.9 % (1.0-10.0) H Eosinophils (%) (Auto) 1.1 % (0.0-3.0) Basophils (%) (Auto) 1.2 % (0.0-2.0) Prothrombin Time 12.5 SEC (9.30-11.50) H Prothromb Time International Ratio 1.2 (0.9-1.1) H Activated Partial Thromboplast Time 31 SEC (23-33) Sodium Level 136 MMOL/L (136-145) Potassium Level 3.6 MMOL/L (3.5-5.1) Chloride Level 97 MMOL/L (98-107) L Carbon Dioxide Level 34 MMOL/L (21-32) H Anion Gap 5 mmol/L (5-15) Blood Urea Nitrogen 24 mg/dL (7-18) H Creatinine 3.3 MG/DL (0.55-1.30) H Estimat Glomerular Filtration Rate mL/min (>60) Glucose Level 143 MG/DL (74-106) H Calcium Level 8.5 MG/DL (8.5-10.1) Phosphorus Level 3.8 MG/DL (2.5-4.9) Magnesium Level 1.7 MG/DL (1.8-2.4) L Total Bilirubin 1.1 MG/DL (0.2-1.0) H Direct Bilirubin 0.6 MG/DL (0.0-0.3) H Aspartate Amino Transf (AST/SGOT) 16 U/L (15-37) Alanine Aminotransferase (ALT/SGPT) < 6 U/L (12-78) L Alkaline Phosphatase 99 U/L (46-116) Total Protein 7.0 G/DL (6.4-8.2) Albumin 1.8 G/DL (3.4-5.0) L Globulin 5.2 g/dL Albumin/Globulin Ratio 0.3 (1.0-2.7) L Current Medications Medications (Trade) Dose Ordered Sig/Kalyn Route PRN Reason Start Time Stop Time Status Last Admin Dose Admin Acetaminophen (Tylenol) 650 mg Q4H PRN ORAL Mild Pain/Temp > 100.5 12/03/16 15:00 12/12/16 14:59 12/07/16 09:17 Allopurinol (Zyloprim) 200 mg DAILY ORAL 12/04/16 09:00 01/02/17 08:59 12/09/16 09:15 Chlorhexidine Gluconate (Marni-Hex 2%) 1 applic Q24H TOPIC 12/03/16 20:00 12/27/16 19:59 12/09/16 20:28 Diphenhydramine HCl (Benadryl) 25 mg Q6H PRN IVP Itching 12/03/16 15:00 12/19/16 14:59 Docusate Sodium (Colace) 100 mg TWICE A DAY GT 12/04/16 09:00 01/03/17 08:59 12/08/16 18:07 Epoetin Santos (Procrit (for non ESRD use)) 10,000 units TUE-TUE-TUE SUBQ 12/03/16 21:00 12/17/16 20:59 12/09/16 04:47 Folic Acid (Folate) 1 mg DAILY ORAL 12/04/16 09:00 12/12/16 08:59 12/09/16 09:16 Gabapentin (Neurontin) 600 mg BID ORAL 12/03/16 18:00 12/14/16 08:59 12/09/16 17:26 Midodrine (Pro-Amatine) 10 mg EVERY 8 HOURS GT 12/05/16 22:00 01/04/17 21:59 12/09/16 14:35 Phosphorus (Phospha 250 Neutral) 500 mg THREE TIMES A DAY GT 12/07/16 18:00 01/06/17 17:59 12/09/16 17:27 Polyethylene Glycol (Miralax) 17 gm DAILY ORAL 12/04/16 09:00 12/12/16 08:59 12/08/16 09:13 Pravastatin Sodium (Pravachol) 20 mg BEDTIME ORAL 12/03/16 21:00 12/12/16 20:59 12/09/16 20:28 Ranitidine HCl (Zantac) 150 mg TWICE A DAY GT 12/05/16 18:00 01/04/17 17:59 12/09/16 17:26 Sildenafil Citrate (Revatio) 20 mg THREE TIMES A DAY ORAL 12/03/16 18:00 12/12/16 08:59 12/09/16 17:26 LINDSEY HILL M.D. Dec 10, 2016 12:14
--- NOTE | 2016-12-10 13:25 | Pulmonology Progress Note ---
Assessment/Plan Problems: (1) Chronic respiratory failure (2) Anasarca (3) ATN (acute tubular necrosis) (4) Anemia (5) Peripheral edema (6) Pickwickian syndrome (7) MINA (obstructive sleep apnea) (8) Morbid obesity Respiratory: monitor respiratory rate, adjust FIO2, CXR Cardiac: continue pressors, continue to monitor HR/BP Renal: F/U I&O, keep IV fluid Infectious Disease: check cultures Gastrointestinal: continue feedings/current rate Endocrine: monitor blood sugar, check TSH, continue sliding scale insulin Hematologic: monitor H/H, transfuse if hgb<8.5 Neurologic: PRN Ativan, PRN Morphine, keep patient comfortable Prophylaxis: Protonix Disposition: keep in ICU Time Spent (Minutes): 40 Notes Reviewed: cardio 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: nurses, case management rn Subjective ROS Limited/Unobtainable: No Constitutional: Reports: no symptoms HEENT: Repors: no symptoms Respiratory: Reports: no symptoms Allergies: Coded Allergies: AMOXICILLIN (Verified Allergy, Mild, RASH, 09/30/16) PENICILLINS (Unverified Allergy, Unknown, 09/30/16) Objective Last 24 Hour Vital Signs Date Time Temp Pulse Resp B/P (MAP) Pulse Ox O2 Delivery O2 Flow Rate FiO2 12/10/16 12:00 50 12/10/16 12:00 97.9 69 16 98/51 100 Mechanical Ventilator 50 12/10/16 11:44 82 12/10/16 11:30 Mechanical Ventilator 50 12/10/16 10:53 86 14 50 12/10/16 09:06 74 14 50 12/10/16 08:25 Mechanical Ventilator 50 12/10/16 08:00 50 12/10/16 08:00 98.0 85 16 119/62 94 Mechanical Ventilator 50 12/10/16 07:30 74 12/10/16 07:13 71 14 50 12/10/16 05:23 86 14 50 12/10/16 04:00 98.4 82 14 105/37 99 Mechanical Ventilator 50 12/10/16 04:00 50 12/10/16 04:00 75 12/10/16 03:18 70 14 50 12/10/16 01:25 69 14 50 12/10/16 00:00 98.2 84 14 153/63 97 Mechanical Ventilator 50 12/10/16 00:00 50 12/10/16 00:00 83 12/09/16 23:29 68 14 50 12/09/16 22:26 87 20 Mechanical Ventilator 50 12/09/16 21:08 77 16 50 12/09/16 20:00 50 12/09/16 20:00 87 12/09/16 20:00 97.9 85 14 127/66 96 Mechanical Ventilator 50 12/09/16 19:50 90 16 50 12/09/16 16:55 68 16 50 12/09/16 16:00 69 12/09/16 16:00 97.3 68 14 101/57 97 Mechanical Ventilator 50 12/09/16 16:00 50 12/09/16 14:50 75 16 50 Intake and Output 12/10/16 12/11/16 19:00 07:00 Output Total 2000 ml Balance -2000 ml Hemodialysis UF 2000 ml General Appearance: WD/WN HEENT: normocephalic Respiratory/Chest: chest wall non-tender, lungs clear Cardiovascular: normal peripheral pulses, normal rate Abdomen: normal bowel sounds, soft, non tender Genitourinary: normal external genitalia Extremities: no clubbing Skin: no lesions Laboratory Tests 12/10/16 02:45: White Blood Count 11.9H, Red Blood Count 2.68L, Hemoglobin 8.3L, Hematocrit 27.0L, Mean Corpuscular Volume 101H, Mean Corpuscular Hemoglobin 31.1H, Mean Corpuscular Hemoglobin Concent 30.9L, Red Cell Distribution Width 19.9H, Platelet Count 137L, Mean Platelet Volume 6.6, Neutrophils (%) (Auto) 78.9H, Lymphocytes (%) (Auto) 7.9L, Monocytes (%) (Auto) 10.9H, Eosinophils (%) (Auto) 1.1, Basophils (%) (Auto) 1.2, Prothrombin Time 12.5H, Prothromb Time International Ratio 1.2H, Activated Partial Thromboplast Time 31, Sodium Level 136, Potassium Level 3.6, Chloride Level 97L, Carbon Dioxide Level 34H, Anion Gap 5, Blood Urea Nitrogen 24H, Creatinine 3.3H, Estimat Glomerular Filtration Rate , Glucose Level 143H, Calcium Level 8.5, Phosphorus Level 3.8, Magnesium Level 1.7L, Total Bilirubin 1.1H, Direct Bilirubin 0.6H, Aspartate Amino Transf (AST/SGOT) 16, Alanine Aminotransferase (ALT/SGPT) < 6L, Alkaline Phosphatase 99 , Total Protein 7.0, Albumin 1.8L, Globulin 5.2, Albumin/Globulin Ratio 0.3L Current Medications Medications (Trade) Dose Ordered Sig/Kalyn Route PRN Reason Start Time Stop Time Status Last Admin Dose Admin Acetaminophen (Tylenol) 650 mg Q4H PRN ORAL Mild Pain/Temp > 100.5 12/03/16 15:00 12/12/16 14:59 12/07/16 09:17 Allopurinol (Zyloprim) 200 mg DAILY ORAL 12/04/16 09:00 01/02/17 08:59 12/09/16 09:15 Chlorhexidine Gluconate (Marni-Hex 2%) 1 applic Q24H TOPIC 12/03/16 20:00 12/27/16 19:59 12/09/16 20:28 Diphenhydramine HCl (Benadryl) 25 mg Q6H PRN IVP Itching 12/03/16 15:00 12/19/16 14:59 Docusate Sodium (Colace) 100 mg TWICE A DAY GT 12/04/16 09:00 01/03/17 08:59 12/08/16 18:07 Epoetin Santos (Procrit (for non ESRD use)) 10,000 units TUE-TUE-TUE SUBQ 12/03/16 21:00 12/17/16 20:59 12/09/16 04:47 Folic Acid (Folate) 1 mg DAILY ORAL 12/04/16 09:00 12/12/16 08:59 12/09/16 09:16 Gabapentin (Neurontin) 600 mg BID ORAL 12/03/16 18:00 12/14/16 08:59 12/09/16 17:26 Midodrine (Pro-Amatine) 10 mg EVERY 8 HOURS GT 12/05/16 22:00 01/04/17 21:59 12/10/16 13:06 Phosphorus (Phospha 250 Neutral) 500 mg THREE TIMES A DAY GT 12/07/16 18:00 01/06/17 17:59 12/10/16 13:06 Polyethylene Glycol (Miralax) 17 gm DAILY ORAL 12/04/16 09:00 12/12/16 08:59 12/08/16 09:13 Pravastatin Sodium (Pravachol) 20 mg BEDTIME ORAL 12/03/16 21:00 12/12/16 20:59 12/09/16 20:28 Ranitidine HCl (Zantac) 150 mg TWICE A DAY GT 12/05/16 18:00 01/04/17 17:59 12/09/16 17:26 Sildenafil Citrate (Revatio) 20 mg THREE TIMES A DAY ORAL 12/03/16 18:00 12/12/16 08:59 12/10/16 13:06 ARASH MIRANDA Dec 10, 2016 13:25
[2016-12-10] MEDS ORDERED: NS 275ml ONE (15:29)
--- NOTE | 2016-12-10 18:42 | General Progress Note ---
Assessment/Plan Assessment/Plan This is a 76-year-old, morbidly obese female, admitted with anasarca and cellulitis of the lower leg. The patient was admitted to the directr observation unit on the monitor with the following medical problems. now transfered to icu as of 11-14-16, co of pruritis 1. Anasarca. She appears to be markedly swollen. She will need diuresis. Place the patient on Lasix 20 mg intravenous for now q.12 hours. Cardiology and Pulmonary on the case. We will follow orders. Check laboratory studies daily. Lasix drip was discontinued in am, HD started 2. Chronic hypercapnic respiratory failure. Continue with vent support per Pulmonary. will discuss with pulmonary regarding trach issues 3 anemia. s./p transfusion of PRBC Continue monitoring CBC daily. patient to start Procrit per nephrology 4. Pulmonary hypertension. hold Eliquis as patient is ob positive 5. Chronic kidney disease. On HD for now per nephrology. 6. DVT prophylaxis. scds 7. nutrition: patient didn't tolerate NGT placement, patient is now s/p PEG placement, tolerating tube feeding 8. Alkalosis: resolved 9. Generalized anxiety: Ativan prn, counselled for 15min 10. constipation: prn enema, continue with Colace and MiraLAX had revision of trach on 11-23-16 11. Anemia: s/p transfusion of one unit of PRBC Benadryl 25 mg iv q 6 prn itching tolerating tube feeding continue HD per nephrology trach revision done by Dr. Powell discussed with nursing staff and Dr. Peralta HD per nephrology continue current care pt ot Subjective Date patient seen: Dec 10, 2016 Allergies: Coded Allergies: AMOXICILLIN (Verified Allergy, Mild, RASH, 09/30/16) PENICILLINS (Unverified Allergy, Unknown, 09/30/16) All Systems: reviewed and negative except above Subjective patient had HD today, friend Sean at bedside Objective Last 24 Hour Vital Signs Date Time Temp Pulse Resp B/P (MAP) Pulse Ox O2 Delivery O2 Flow Rate FiO2 12/10/16 17:11 74 14 50 12/10/16 16:00 98.2 74 18 106/61 95 Mechanical Ventilator 50 12/10/16 16:00 50 12/10/16 15:55 89 15 50 12/10/16 15:34 84 12/10/16 13:31 73 14 50 12/10/16 12:00 50 12/10/16 12:00 97.9 69 16 98/51 100 Mechanical Ventilator 50 12/10/16 11:44 82 12/10/16 11:30 Mechanical Ventilator 50 12/10/16 10:53 86 14 50 12/10/16 09:06 74 14 50 12/10/16 08:25 Mechanical Ventilator 50 12/10/16 08:00 50 12/10/16 08:00 98.0 85 16 119/62 94 Mechanical Ventilator 50 12/10/16 07:30 74 12/10/16 07:13 71 14 50 12/10/16 05:23 86 14 50 12/10/16 04:00 98.4 82 14 105/37 99 Mechanical Ventilator 50 12/10/16 04:00 50 12/10/16 04:00 75 12/10/16 03:18 70 14 50 12/10/16 01:25 69 14 50 12/10/16 00:00 98.2 84 14 153/63 97 Mechanical Ventilator 50 12/10/16 00:00 50 12/10/16 00:00 83 12/09/16 23:29 68 14 50 12/09/16 22:26 87 20 Mechanical Ventilator 50 12/09/16 21:08 77 16 50 12/09/16 20:00 50 12/09/16 20:00 87 12/09/16 20:00 97.9 85 14 127/66 96 Mechanical Ventilator 50 12/09/16 19:50 90 16 50 Intake and Output 12/10/16 12/11/16 19:00 07:00 Intake Total 100 ml Output Total 2001 ml Balance -1901 ml Tube Feeding 40 ml Other 60 ml Stool Total 1 ml Hemodialysis UF 2000 ml # Bowel Movements 1 Laboratory Tests 12/10/16 02:45: White Blood Count 11.9H, Red Blood Count 2.68L, Hemoglobin 8.3L, Hematocrit 27.0L, Mean Corpuscular Volume 101H, Mean Corpuscular Hemoglobin 31.1H, Mean Corpuscular Hemoglobin Concent 30.9L, Red Cell Distribution Width 19.9H, Platelet Count 137L, Mean Platelet Volume 6.6, Neutrophils (%) (Auto) 78.9H, Lymphocytes (%) (Auto) 7.9L, Monocytes (%) (Auto) 10.9H, Eosinophils (%) (Auto) 1.1, Basophils (%) (Auto) 1.2, Prothrombin Time 12.5H, Prothromb Time International Ratio 1.2H, Activated Partial Thromboplast Time 31, Sodium Level 136, Potassium Level 3.6, Chloride Level 97L, Carbon Dioxide Level 34H, Anion Gap 5, Blood Urea Nitrogen 24H, Creatinine 3.3H, Estimat Glomerular Filtration Rate , Glucose Level 143H, Calcium Level 8.5, Phosphorus Level 3.8, Magnesium Level 1.7L, Total Bilirubin 1.1H, Direct Bilirubin 0.6H, Aspartate Amino Transf (AST/SGOT) 16, Alanine Aminotransferase (ALT/SGPT) < 6L, Alkaline Phosphatase 99 , Total Protein 7.0, Albumin 1.8L, Globulin 5.2, Albumin/Globulin Ratio 0.3L Height (Feet): 5 Height (Inches): 3.00 Weight (Pounds): 387 General Appearance: no apparent distress, alert, morbidly obese EENT: PERRL/EOMI, pharynx normal Cardiovascular: normal rate, regular rhythm, no gallop/murmur, no JVD Respiratory/Chest: decreased breath sounds Abdomen: non tender, soft, no mass Extremities: swelling Edema: 4+ Arm (L), 3+ Arm (R), 4+ Leg (L), 4+ Leg (R), 4+ Pedal (L), 4+ Pedal ( R), 4+ Generalized Edema: severe edema Neurologic: oncology physician II-XII grossly normal, oriented x 3, responsive Skin: rash Lymphatic: normal anterior cervical (L), normal anterior cervical (R), normal posterior cervical (L), normal posterior cervical (R), normal submandibular (L) , normal submandibular (R), normal supraclavicular (L), normal supraclavicular ( R), normal axillary (L), normal axillary (R), normal inguinal (L), normal inguinal (R), normal other Manny Nolan MD Dec 10, 2016 18:42
--- NOTE | 2016-12-10 18:59 | Cardiology Progress Note ---
Assessment/Plan Assessment/Plan 1. Permanent atrial fibrillation. 2. Chronic respiratory failure, on a mechanical ventilator. 3. Cor pulmonale. 4. Pulmonary hypertension. 5. Acute renal failure, now on dialysis. 6. Anemia. 7. Significant edema. 8. Hypoalbuminemia. 9. stool ob + bp ok today on vent remain in afib tele reviewed stool now ob + no anticoagulation for now await transfer to skilled nursing care facility with vent capacity Subjective ROS Limited/Unobtainable: Yes Subjective on the vent awake Objective Last 24 Hour Vital Signs Date Time Temp Pulse Resp B/P (MAP) Pulse Ox O2 Delivery O2 Flow Rate FiO2 12/10/16 18:50 79 16 50 12/10/16 17:11 74 14 50 12/10/16 16:00 98.2 74 18 106/61 95 Mechanical Ventilator 50 12/10/16 16:00 50 12/10/16 15:55 89 15 50 12/10/16 15:34 84 12/10/16 13:31 73 14 50 12/10/16 12:00 50 12/10/16 12:00 97.9 69 16 98/51 100 Mechanical Ventilator 50 12/10/16 11:44 82 12/10/16 11:30 Mechanical Ventilator 50 12/10/16 10:53 86 14 50 12/10/16 09:06 74 14 50 12/10/16 08:25 Mechanical Ventilator 50 12/10/16 08:00 50 12/10/16 08:00 98.0 85 16 119/62 94 Mechanical Ventilator 50 12/10/16 07:30 74 12/10/16 07:13 71 14 50 12/10/16 05:23 86 14 50 12/10/16 04:00 98.4 82 14 105/37 99 Mechanical Ventilator 50 12/10/16 04:00 50 12/10/16 04:00 75 12/10/16 03:18 70 14 50 12/10/16 01:25 69 14 50 12/10/16 00:00 98.2 84 14 153/63 97 Mechanical Ventilator 50 12/10/16 00:00 50 12/10/16 00:00 83 12/09/16 23:29 68 14 50 12/09/16 22:26 87 20 Mechanical Ventilator 50 12/09/16 21:08 77 16 50 12/09/16 20:00 50 12/09/16 20:00 87 12/09/16 20:00 97.9 85 14 127/66 96 Mechanical Ventilator 50 12/09/16 19:50 90 16 50 General Appearance: no apparent distress, alert, on vent, patient on isolation Intake and Output 12/10/16 12/11/16 19:00 07:00 Intake Total 100 ml Output Total 2001 ml Balance -1901 ml Tube Feeding 40 ml Other 60 ml Stool Total 1 ml Hemodialysis UF 2000 ml # Bowel Movements 1 Laboratory Tests Test 12/10/16 02:45 White Blood Count 11.9 K/UL (4.8-10.8) H Red Blood Count 2.68 M/UL (4.20-5.40) L Hemoglobin 8.3 G/DL (12.0-16.0) L Hematocrit 27.0 % (37.0-47.0) L Mean Corpuscular Volume 101 FL (80-99) H Mean Corpuscular Hemoglobin 31.1 PG (27.0-31.0) H Mean Corpuscular Hemoglobin Concent 30.9 G/DL (32.0-36.0) L Red Cell Distribution Width 19.9 % (11.6-14.8) H Platelet Count 137 K/UL (150-450) L Mean Platelet Volume 6.6 FL (6.5-10.1) Neutrophils (%) (Auto) 78.9 % (45.0-75.0) H Lymphocytes (%) (Auto) 7.9 % (20.0-45.0) L Monocytes (%) (Auto) 10.9 % (1.0-10.0) H Eosinophils (%) (Auto) 1.1 % (0.0-3.0) Basophils (%) (Auto) 1.2 % (0.0-2.0) Prothrombin Time 12.5 SEC (9.30-11.50) H Prothromb Time International Ratio 1.2 (0.9-1.1) H Activated Partial Thromboplast Time 31 SEC (23-33) Sodium Level 136 MMOL/L (136-145) Potassium Level 3.6 MMOL/L (3.5-5.1) Chloride Level 97 MMOL/L (98-107) L Carbon Dioxide Level 34 MMOL/L (21-32) H Anion Gap 5 mmol/L (5-15) Blood Urea Nitrogen 24 mg/dL (7-18) H Creatinine 3.3 MG/DL (0.55-1.30) H Estimat Glomerular Filtration Rate mL/min (>60) Glucose Level 143 MG/DL (74-106) H Calcium Level 8.5 MG/DL (8.5-10.1) Phosphorus Level 3.8 MG/DL (2.5-4.9) Magnesium Level 1.7 MG/DL (1.8-2.4) L Total Bilirubin 1.1 MG/DL (0.2-1.0) H Direct Bilirubin 0.6 MG/DL (0.0-0.3) H Aspartate Amino Transf (AST/SGOT) 16 U/L (15-37) Alanine Aminotransferase (ALT/SGPT) < 6 U/L (12-78) L Alkaline Phosphatase 99 U/L (46-116) Total Protein 7.0 G/DL (6.4-8.2) Albumin 1.8 G/DL (3.4-5.0) L Globulin 5.2 g/dL Albumin/Globulin Ratio 0.3 (1.0-2.7) L Microbiology Date/Time Source Procedure Growth Status 12/10/16 06:00 Other(Specify in comment) Gram Stain - Final Resulted 12/10/16 06:00 Other(Specify in comment) Wound Culture Pending Resulted BRIANA TELLES Dec 10, 2016 18:59
[2016-12-10] MEDS: Dyna-Hex 2% Top Sol 2oz TOPIC SCH (20:00)
[2016-12-10] MEDS: Epogen (for non ESRD use) SUBQ SCH (21:02)
--- NOTE | 2016-12-10 22:52 | General Progress Note ---
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 Will give Vitamin K and then repeat mixing study. --> Vitamin K has been given, results pending --> INR improving #. Anemia secondary to chronic disease. Continue to closely monitor. Work up reviewed --> s/p multiple transfusions. watch counts, transfuse if hgb is below 8. # Positive occult blood. r/o gi bleed. gi following #. Anemia of kidney disease. Nephrology service following #. PEG tube placement. tolerating feeds #. Chronic ventilator dependent #. Permanent atrial fibrillation. #. Cellulitis and chronic lymphedema of the bilateral lower extremities. #. Congestive heart failure. Subjective ROS Limited/Unobtainable: Yes Allergies: Coded Allergies: AMOXICILLIN (Verified Allergy, Mild, RASH, 09/30/16) PENICILLINS (Unverified Allergy, Unknown, 09/30/16) Subjective no major changes Objective Last 24 Hour Vital Signs Date Time Temp Pulse Resp B/P (MAP) Pulse Ox O2 Delivery O2 Flow Rate FiO2 12/10/16 22:42 71 14 50 12/10/16 21:00 88 15 50 12/10/16 20:00 97.5 75 15 95/48 98 Mechanical Ventilator 12/10/16 20:00 50 12/10/16 20:00 97.5 75 15 98 Mechanical Ventilator 12/10/16 20:00 72 12/10/16 18:50 79 16 50 12/10/16 17:11 74 14 50 12/10/16 16:00 98.2 74 18 106/61 95 Mechanical Ventilator 50 12/10/16 16:00 50 12/10/16 15:55 89 15 50 12/10/16 15:34 84 12/10/16 13:31 73 14 50 12/10/16 12:00 50 12/10/16 12:00 97.9 69 16 98/51 100 Mechanical Ventilator 50 12/10/16 11:44 82 12/10/16 11:30 Mechanical Ventilator 50 12/10/16 10:53 86 14 50 12/10/16 09:06 74 14 50 12/10/16 08:25 Mechanical Ventilator 50 12/10/16 08:00 50 12/10/16 08:00 98.0 85 16 119/62 94 Mechanical Ventilator 50 12/10/16 07:30 74 12/10/16 07:13 71 14 50 12/10/16 05:23 86 14 50 12/10/16 04:00 98.4 82 14 105/37 99 Mechanical Ventilator 50 12/10/16 04:00 50 12/10/16 04:00 75 12/10/16 03:18 70 14 50 12/10/16 01:25 69 14 50 12/10/16 00:00 98.2 84 14 153/63 97 Mechanical Ventilator 50 12/10/16 00:00 50 12/10/16 00:00 83 12/09/16 23:29 68 14 50 Intake and Output 12/10/16 12/11/16 19:00 07:00 Intake Total 500 ml Output Total 2001 ml Balance -1501 ml Free Water 100 ml Tube Feeding 280 ml Other 120 ml Stool Total 1 ml Hemodialysis UF 2000 ml # Bowel Movements 1 Laboratory Tests 12/10/16 02:45: White Blood Count 11.9H, Red Blood Count 2.68L, Hemoglobin 8.3L, Hematocrit 27.0L, Mean Corpuscular Volume 101H, Mean Corpuscular Hemoglobin 31.1H, Mean Corpuscular Hemoglobin Concent 30.9L, Red Cell Distribution Width 19.9H, Platelet Count 137L, Mean Platelet Volume 6.6, Neutrophils (%) (Auto) 78.9H, Lymphocytes (%) (Auto) 7.9L, Monocytes (%) (Auto) 10.9H, Eosinophils (%) (Auto) 1.1, Basophils (%) (Auto) 1.2, Prothrombin Time 12.5H, Prothromb Time International Ratio 1.2H, Activated Partial Thromboplast Time 31, Sodium Level 136, Potassium Level 3.6, Chloride Level 97L, Carbon Dioxide Level 34H, Anion Gap 5, Blood Urea Nitrogen 24H, Creatinine 3.3H, Estimat Glomerular Filtration Rate , Glucose Level 143H, Calcium Level 8.5, Phosphorus Level 3.8, Magnesium Level 1.7L, Total Bilirubin 1.1H, Direct Bilirubin 0.6H, Aspartate Amino Transf (AST/SGOT) 16, Alanine Aminotransferase (ALT/SGPT) < 6L, Alkaline Phosphatase 99 , Total Protein 7.0, Albumin 1.8L, Globulin 5.2, Albumin/Globulin Ratio 0.3L Height (Feet): 5 Height (Inches): 3.00 Weight (Pounds): 387 General Appearance: no apparent distress EENT: PERRL/EOMI Neck: normal alignment Cardiovascular: normal peripheral pulses Extremities: non-tender 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
[2016-12-11] VITALS: BP 115/45
[2016-12-11 04:00] VITALS: BP 139/98
[2016-12-11 04:50] LABS: BASOPHILS % (AUTO) 1.4 % (0.0-2.0); EOSINOPHILS % (AUTO) 0.9 % (0.0-3.0); LYMPHOCYTES % (AUTO) 11.2 % (20.0-45.0); MEAN CORPUSCULAR HEMOGLOBIN 30.6 PG (27.0-31.0); MEAN CORPUSCULAR HGB CONC 29.8 G/DL (32.0-36.0); MEAN CORPUSCULAR VOLUME 102 FL (80-99); MEAN PLATELET VOLUME 6.1 FL (6.5-10.1); MONOCYTES % (AUTO) 11.4 % (1.0-10.0); NEUTROPHILS % (AUTO) 75.1 % (45.0-75.0); PLATELET COUNT 187 K/UL (150-450); RED BLOOD COUNT 2.77 M/UL (4.20-5.40); RED CELL DISTRIBUTION WIDTH 20.2 % (11.6-14.8); WHITE BLOOD COUNT 13.3 K/UL (4.8-10.8)
[2016-12-11 05:16] LABS: ALANINE AMINOTRANSFERASE < 6 U/L (12-78); ALBUMIN/GLOBULIN RATIO 0.4 (1.0-2.7); ANION GAP 8 mmol/L (5-15); ASPARTATE AMINO TRANSFERASE 20 U/L (15-37); CALCIUM 8.9 MG/DL (8.5-10.1); CARBON DIOXIDE 32 MMOL/L (21-32); CHLORIDE 98 MMOL/L (98-107); SODIUM 138 MMOL/L (136-145); TOTAL PROTEIN 8.1 G/DL (6.4-8.2)
[2016-12-11] MEDS: Midodrine 10mg tab GT SCH ×3 (05:17→21:36)
[2016-12-11 05:41] LABS: BILIRUBIN,DIRECT 0.7 MG/DL (0.0-0.3)
[2016-12-11 08:00] VITALS: BP 111/67
[2016-12-11] MEDS: Phospha 250 Neutral tab GT SCH ×3 (08:42→17:06)
[2016-12-11] MEDS: Allopurinol 100mg Tab ORAL SCH (08:42)
[2016-12-11] MEDS: Revatio 20mg tab ORAL SCH ×3 (08:42→17:06)
[2016-12-11] MEDS: Miralax 17gm pkt ORAL SCH (09:00)
[2016-12-11] MEDS: Docusate 100mg/10ml Liq GT SCH ×2 (09:00→18:00)
[2016-12-11 12:00] VITALS: BP 109/63
--- NOTE | 2016-12-11 13:46 | Infectious Diseases Prog Note ---
Assessment/Plan Assessment/Plan Assesment: Probable VAP Scx : PSA and Providencia -CXR 12/04: Improved although persistent right lung parenchymal infiltrates versus edema, over one day. Leukocytosis , increased , ,afebrile Cellulitis BLE and R arm- in the setting of chronic leg edema/venous stasis, s/ p Rx- Limited Venous duplex BLE (non diagnostic), no DVT R arm;Cellulitis resolved;Now residual venous stasis changes. -Bcx Neg Anasarca/ bilateral leg lymphedema VRE colonzied Anemia COPD Diastolic CHF Renal insufficiency- acute on chronic- started on HD 11/24 chronic resp failure, vent/trach dependent Gtbue pAfib pleural effusion MINA CKD GERD morbid obesity [place] resident Plan: start pt on Cefepime d# IV Vancomycin 11/11-11/12; 11/17-11/26 IV Cefepime 11/11-11/12 IV Ancef 11/12-11/28 Flagyl x1 11/11 monitor Cxray -extremity elevation -edema management -Monitor CBC/BMP, - vent support, trach care, aspiration precautions Subjective Allergies: Coded Allergies: AMOXICILLIN (Verified Allergy, Mild, RASH, 09/30/16) PENICILLINS (Unverified Allergy, Unknown, 09/30/16) Subjective Afebrile Objective Vital Signs Last 24 Hour Vital Signs Date Time Temp Pulse Resp B/P (MAP) Pulse Ox O2 Delivery O2 Flow Rate FiO2 12/11/16 13:18 67 14 50 12/11/16 12:20 82 12/11/16 12:00 50 12/11/16 12:00 96.4 70 15 109/63 98 Mechanical Ventilator 50 12/11/16 10:51 76 14 50 12/11/16 09:19 70 15 50 12/11/16 08:00 82 12/11/16 08:00 50 12/11/16 08:00 97.7 83 16 111/67 99 Mechanical Ventilator 50 12/11/16 07:12 92 15 50 12/11/16 05:10 98 17 50 12/11/16 04:00 97.7 98 16 139/98 100 Mechanical Ventilator 12/11/16 04:00 50 12/11/16 03:51 103 12/11/16 02:46 100 15 50 12/11/16 00:59 97 15 50 12/11/16 00:00 50 12/11/16 00:00 98.1 100 16 115/45 99 Mechanical Ventilator 12/11/16 00:00 93 12/10/16 22:42 71 14 50 12/10/16 21:00 88 15 50 12/10/16 20:00 97.5 75 15 95/48 98 Mechanical Ventilator 12/10/16 20:00 50 12/10/16 20:00 97.5 75 15 98 Mechanical Ventilator 12/10/16 20:00 72 12/10/16 18:50 79 16 50 12/10/16 17:11 74 14 50 12/10/16 16:00 98.2 74 18 106/61 95 Mechanical Ventilator 50 12/10/16 16:00 50 12/10/16 15:55 89 15 50 12/10/16 15:34 84 Height (Feet): 5 Height (Inches): 3.00 Weight (Pounds): 377 HEENT: mucous membranes moist Respiratory/Chest: normal breath sounds Cardiovascular: regular rhythm Abdomen: soft, non tender Microbiology Date/Time Source Procedure Growth Status 12/10/16 06:00 Other(Specify in comment) Gram Stain - Final Resulted 12/10/16 06:00 Other(Specify in comment) Wound Culture Pending Resulted Laboratory Tests Test 12/11/16 04:15 White Blood Count 13.3 K/UL (4.8-10.8) H Red Blood Count 2.77 M/UL (4.20-5.40) L Hemoglobin 8.5 G/DL (12.0-16.0) L Hematocrit 28.4 % (37.0-47.0) L Mean Corpuscular Volume 102 FL (80-99) H Mean Corpuscular Hemoglobin 30.6 PG (27.0-31.0) Mean Corpuscular Hemoglobin Concent 29.8 G/DL (32.0-36.0) L Red Cell Distribution Width 20.2 % (11.6-14.8) H Platelet Count 187 K/UL (150-450) Mean Platelet Volume 6.1 FL (6.5-10.1) L Neutrophils (%) (Auto) 75.1 % (45.0-75.0) H Lymphocytes (%) (Auto) 11.2 % (20.0-45.0) L Monocytes (%) (Auto) 11.4 % (1.0-10.0) H Eosinophils (%) (Auto) 0.9 % (0.0-3.0) Basophils (%) (Auto) 1.4 % (0.0-2.0) Sodium Level 138 MMOL/L (136-145) Potassium Level 4.0 MMOL/L (3.5-5.1) Chloride Level 98 MMOL/L (98-107) Carbon Dioxide Level 32 MMOL/L (21-32) Anion Gap 8 mmol/L (5-15) Blood Urea Nitrogen 19 mg/dL (7-18) H Creatinine 3.0 MG/DL (0.55-1.30) H Estimat Glomerular Filtration Rate mL/min (>60) Glucose Level 116 MG/DL (74-106) H Calcium Level 8.9 MG/DL (8.5-10.1) Total Bilirubin 1.3 MG/DL (0.2-1.0) H Direct Bilirubin 0.7 MG/DL (0.0-0.3) H Aspartate Amino Transf (AST/SGOT) 20 U/L (15-37) Alanine Aminotransferase (ALT/SGPT) < 6 U/L (12-78) L Alkaline Phosphatase 109 U/L (46-116) Total Protein 8.1 G/DL (6.4-8.2) Albumin 2.2 G/DL (3.4-5.0) L Globulin 5.9 g/dL Albumin/Globulin Ratio 0.4 (1.0-2.7) L Current Medications Medications (Trade) Dose Ordered Sig/Kalyn Route PRN Reason Start Time Stop Time Status Last Admin Dose Admin Acetaminophen (Tylenol) 650 mg Q4H PRN ORAL Mild Pain/Temp > 100.5 12/03/16 15:00 12/12/16 14:59 12/07/16 09:17 Allopurinol (Zyloprim) 200 mg DAILY ORAL 12/04/16 09:00 01/02/17 08:59 12/11/16 08:42 Chlorhexidine Gluconate (Marni-Hex 2%) 1 applic Q24H TOPIC 12/03/16 20:00 12/27/16 19:59 12/10/16 20:00 Diphenhydramine HCl (Benadryl) 25 mg Q6H PRN IVP Itching 12/03/16 15:00 12/19/16 14:59 Docusate Sodium (Colace) 100 mg TWICE A DAY GT 12/04/16 09:00 01/03/17 08:59 12/08/16 18:07 Epoetin Santos (Procrit (for non ESRD use)) 10,000 units TUE-TUE-TUE SUBQ 12/03/16 21:00 12/17/16 20:59 12/10/16 21:02 Folic Acid (Folate) 1 mg DAILY ORAL 12/04/16 09:00 12/12/16 08:59 12/11/16 08:42 Gabapentin (Neurontin) 600 mg BID ORAL 12/03/16 18:00 12/14/16 08:59 12/11/16 08:42 Midodrine (Pro-Amatine) 10 mg EVERY 8 HOURS GT 12/05/16 22:00 01/04/17 21:59 12/11/16 13:23 Phosphorus (Phospha 250 Neutral) 500 mg THREE TIMES A DAY GT 12/07/16 18:00 01/06/17 17:59 12/11/16 13:22 Polyethylene Glycol (Miralax) 17 gm DAILY ORAL 12/04/16 09:00 12/12/16 08:59 12/08/16 09:13 Pravastatin Sodium (Pravachol) 20 mg BEDTIME ORAL 12/03/16 21:00 12/12/16 20:59 12/10/16 21:01 Ranitidine HCl (Zantac) 150 mg TWICE A DAY GT 12/05/16 18:00 01/04/17 17:59 12/11/16 08:42 Sildenafil Citrate (Revatio) 20 mg THREE TIMES A DAY ORAL 12/03/16 18:00 12/12/16 08:59 12/11/16 13:22 LINDSEY HILL M.D. Dec 11, 2016 13:46
--- NOTE | 2016-12-11 14:01 | Nephrology Progress Note ---
Assessment/Plan Problem List: (1) Renal failure Assessment: CKD + ACUTE (2) Acute and chronic respiratory failure (3) CHF (congestive heart failure) (4) Morbid obesity (5) Atrial fibrillation Assessment CKD- and acute renal failure - Acute respiratory failure s/p Trach Obese COPD , CHF, Diastolic MINA UTI Anemia GI Bleed, GI bleeding At Fib Pulm HTN h/o Low B12 Plan plan: Now has PEG HD 12/10, i next 12/13 K supplement as needed on EPOGEN 24 H urine collection in process: CrCl 6 Monitor renal parameters- optimize cardiac and pulm status pulmonary support- transfuse as needed ? DC planning post PEG, placement is complicated Subjective ROS Limited/Unobtainable: No Constitutional: Reports: malaise Objective Objective Last 24 Hour Vital Signs Date Time Temp Pulse Resp B/P (MAP) Pulse Ox O2 Delivery O2 Flow Rate FiO2 12/11/16 13:18 67 14 50 12/11/16 12:20 82 12/11/16 12:00 50 12/11/16 12:00 96.4 70 15 109/63 98 Mechanical Ventilator 50 12/11/16 10:51 76 14 50 12/11/16 09:19 70 15 50 12/11/16 08:00 82 12/11/16 08:00 50 12/11/16 08:00 97.7 83 16 111/67 99 Mechanical Ventilator 50 12/11/16 07:12 92 15 50 12/11/16 05:10 98 17 50 12/11/16 04:00 97.7 98 16 139/98 100 Mechanical Ventilator 12/11/16 04:00 50 12/11/16 03:51 103 12/11/16 02:46 100 15 50 12/11/16 00:59 97 15 50 12/11/16 00:00 50 12/11/16 00:00 98.1 100 16 115/45 99 Mechanical Ventilator 12/11/16 00:00 93 12/10/16 22:42 71 14 50 12/10/16 21:00 88 15 50 12/10/16 20:00 97.5 75 15 95/48 98 Mechanical Ventilator 12/10/16 20:00 50 12/10/16 20:00 97.5 75 15 98 Mechanical Ventilator 12/10/16 20:00 72 12/10/16 18:50 79 16 50 12/10/16 17:11 74 14 50 12/10/16 16:00 98.2 74 18 106/61 95 Mechanical Ventilator 50 12/10/16 16:00 50 12/10/16 15:55 89 15 50 12/10/16 15:34 84 Intake and Output 12/11/16 12/12/16 19:00 07:00 Intake Total 220 ml Balance 220 ml Tube Feeding 160 ml Other 60 ml Laboratory Tests 12/11/16 04:15: White Blood Count 13.3H, Red Blood Count 2.77L, Hemoglobin 8.5L, Hematocrit 28.4L, Mean Corpuscular Volume 102H, Mean Corpuscular Hemoglobin 30.6, Mean Corpuscular Hemoglobin Concent 29.8L, Red Cell Distribution Width 20.2H, Platelet Count 187, Mean Platelet Volume 6.1L, Neutrophils (%) (Auto) 75.1H, Lymphocytes (%) (Auto) 11.2L, Monocytes (%) (Auto) 11.4H, Eosinophils (%) (Auto ) 0.9, Basophils (%) (Auto) 1.4, Sodium Level 138, Potassium Level 4.0, Chloride Level 98, Carbon Dioxide Level 32, Anion Gap 8, Blood Urea Nitrogen 19H , Creatinine 3.0H, Estimat Glomerular Filtration Rate , Glucose Level 116H, Calcium Level 8.9, Total Bilirubin 1.3H, Direct Bilirubin 0.7H, Aspartate Amino Transf (AST/SGOT) 20, Alanine Aminotransferase (ALT/SGPT) < 6L, Alkaline Phosphatase 109, Total Protein 8.1, Albumin 2.2L, Globulin 5.9, Albumin/ Globulin Ratio 0.4L Height (Feet): 5 Height (Inches): 3.00 Weight (Pounds): 377 General Appearance: no apparent distress Objective edema andreias COURTNEY LOPEZ Dec 11, 2016 14:01
[2016-12-11 16:00] VITALS: BP 102/54
[2016-12-11] MEDS ORDERED: Cefepime HCl 2 GM in NS 110 ML IVPB ONE (16:00)
--- NOTE | 2016-12-11 16:08 | Pulmonology Progress Note ---
Assessment/Plan Assessment/Plan ASSESSMENT chronic hypercapnic respiratory failure VDRF/trach Probable VAP anasarca CHF diastolic s/p 11/23 trach revision acute on chronic renal failure, requiring HD new onset of HD 11/24 s/p PEG 12/03 coagulopathy ( due to a/coagulation and sepsis) cellulitis BLE and R arm, s/p Rx hypotension anemia of chronic disease anemia requiring blood transfusion pulmonary HTN severe MR and TR morbid obesity Pickwickian syndrome MINA permanent A fib cor pulmonale chronic lymphedema with venous stasis BLE hx of breast Ca stool OB + PLAN OF CARE FRANCISCO Vent/trach care pulmonary toilet ABG stable on current settings, keep as is and titrate as needed s/p trach revision 11/23 s/p Lasix gtt , no change, worsening creat ( discussed with nephro) eventually started on HD nephro follows on Midodrine for BP management with holding parameters ECHO with EF 60-65% and RVSP of 32 c/w mild pulmonary hTN, severe MR and TR continue Sildenafil abx, ID follows Sputum cx with PSA and Providencia blood cx negative wound care as per wound nurse recommendations venous Duplex BLE and BUE negative Arterial Duplex BLE ( was a technically difficult study), but no evidence of stenosis monitor HH, transfuse prn anemia w/up c/w anemia of chronic disease continue EPO HD as per nephro, monitor renal parameters, lytes nephro follows bowel regimen strict aspiration precautions, GT feeding, monitor tolerance, site care abdominal US no dilated ducts case discussed and evaluated by supervising physician Subjective Allergies: Coded Allergies: AMOXICILLIN (Verified Allergy, Mild, RASH, 09/30/16) PENICILLINS (Unverified Allergy, Unknown, 09/30/16) Subjective awaiting for placement no signs of respiratory distress afebrile, no leukocytosis Objective Last 24 Hour Vital Signs Date Time Temp Pulse Resp B/P (MAP) Pulse Ox O2 Delivery O2 Flow Rate FiO2 12/11/16 14:41 78 14 50 12/11/16 13:18 67 14 50 12/11/16 12:20 82 12/11/16 12:00 50 12/11/16 12:00 96.4 70 15 109/63 98 Mechanical Ventilator 50 12/11/16 10:51 76 14 50 12/11/16 09:19 70 15 50 12/11/16 08:00 82 12/11/16 08:00 50 12/11/16 08:00 97.7 83 16 111/67 99 Mechanical Ventilator 50 12/11/16 07:12 92 15 50 12/11/16 05:10 98 17 50 12/11/16 04:00 97.7 98 16 139/98 100 Mechanical Ventilator 12/11/16 04:00 50 12/11/16 03:51 103 12/11/16 02:46 100 15 50 12/11/16 00:59 97 15 50 12/11/16 00:00 50 12/11/16 00:00 98.1 100 16 115/45 99 Mechanical Ventilator 12/11/16 00:00 93 12/10/16 22:42 71 14 50 12/10/16 21:00 88 15 50 12/10/16 20:00 97.5 75 15 95/48 98 Mechanical Ventilator 12/10/16 20:00 50 12/10/16 20:00 97.5 75 15 98 Mechanical Ventilator 12/10/16 20:00 72 12/10/16 18:50 79 16 50 12/10/16 17:11 74 14 50 12/10/16 16:00 98.2 74 18 106/61 95 Mechanical Ventilator 50 12/10/16 16:00 50 12/10/16 15:55 89 15 50 Intake and Output 12/11/16 12/12/16 19:00 07:00 Intake Total 220 ml Balance 220 ml Tube Feeding 160 ml Other 60 ml Objective Status: awake, alert, responsive, bedridden, vent dependent morbidly obese with generalized anasarca female on vent AC 600-14-50% HEENT: atraumatic, normocephalic Neck: trach Shiley #6, secretions moderate, yellow, thick, R neck HD catheter Lungs: decreased BS Heart: HR/BP stable, irregular A fib on tele, rate controlled Abdomen: soft, non-tender, obese, active bowel sounds, G tube with TF Extremities: anasarca; BLE edema +2, chronic lymphedema BLE Microbiology Date/Time Source Procedure Growth Status 12/10/16 06:00 Other(Specify in comment) Gram Stain - Final Resulted 12/10/16 06:00 Other(Specify in comment) Wound Culture Pending Resulted Laboratory Tests 12/11/16 04:15: White Blood Count 13.3H, Red Blood Count 2.77L, Hemoglobin 8.5L, Hematocrit 28.4L, Mean Corpuscular Volume 102H, Mean Corpuscular Hemoglobin 30.6, Mean Corpuscular Hemoglobin Concent 29.8L, Red Cell Distribution Width 20.2H, Platelet Count 187, Mean Platelet Volume 6.1L, Neutrophils (%) (Auto) 75.1H, Lymphocytes (%) (Auto) 11.2L, Monocytes (%) (Auto) 11.4H, Eosinophils (%) (Auto ) 0.9, Basophils (%) (Auto) 1.4, Sodium Level 138, Potassium Level 4.0, Chloride Level 98, Carbon Dioxide Level 32, Anion Gap 8, Blood Urea Nitrogen 19H , Creatinine 3.0H, Estimat Glomerular Filtration Rate , Glucose Level 116H, Calcium Level 8.9, Total Bilirubin 1.3H, Direct Bilirubin 0.7H, Aspartate Amino Transf (AST/SGOT) 20, Alanine Aminotransferase (ALT/SGPT) < 6L, Alkaline Phosphatase 109, Total Protein 8.1, Albumin 2.2L, Globulin 5.9, Albumin/ Globulin Ratio 0.4L Current Medications Medications (Trade) Dose Ordered Sig/Kalyn Route PRN Reason Start Time Stop Time Status Last Admin Dose Admin Acetaminophen (Tylenol) 650 mg Q4H PRN ORAL Mild Pain/Temp > 100.5 12/03/16 15:00 12/12/16 14:59 12/07/16 09:17 Allopurinol (Zyloprim) 200 mg DAILY ORAL 12/04/16 09:00 01/02/17 08:59 12/11/16 08:42 Cefepime HCl 2 gm/ Sodium Chloride 110 ml @ 220 mls/hr ONCE ONCE IVPB 12/11/16 16:00 12/11/16 16:29 Cefepime HCl 500 mg/Dextrose 55 ml @ 110 mls/hr DAILY@1600 IVPB 12/12/16 16:00 12/19/16 15:59 Chlorhexidine Gluconate (Marni-Hex 2%) 1 applic Q24H TOPIC 12/03/16 20:00 12/27/16 19:59 12/10/16 20:00 Diphenhydramine HCl (Benadryl) 25 mg Q6H PRN IVP Itching 12/03/16 15:00 12/19/16 14:59 Docusate Sodium (Colace) 100 mg TWICE A DAY GT 12/04/16 09:00 01/03/17 08:59 12/08/16 18:07 Epoetin Santos (Procrit (for non ESRD use)) 10,000 units TUE-TUE-TUE SUBQ 12/03/16 21:00 12/17/16 20:59 12/10/16 21:02 Folic Acid (Folate) 1 mg DAILY ORAL 12/04/16 09:00 12/12/16 08:59 12/11/16 08:42 Gabapentin (Neurontin) 600 mg BID ORAL 12/03/16 18:00 12/14/16 08:59 12/11/16 08:42 Midodrine (Pro-Amatine) 10 mg EVERY 8 HOURS GT 12/05/16 22:00 01/04/17 21:59 12/11/16 13:23 Phosphorus (Phospha 250 Neutral) 500 mg THREE TIMES A DAY GT 12/07/16 18:00 01/06/17 17:59 12/11/16 13:22 Polyethylene Glycol (Miralax) 17 gm DAILY ORAL 12/04/16 09:00 12/12/16 08:59 12/08/16 09:13 Pravastatin Sodium (Pravachol) 20 mg BEDTIME ORAL 12/03/16 21:00 12/12/16 20:59 12/10/16 21:01 Ranitidine HCl (Zantac) 150 mg TWICE A DAY GT 12/05/16 18:00 01/04/17 17:59 12/11/16 08:42 Sildenafil Citrate (Revatio) 20 mg THREE TIMES A DAY ORAL 12/03/16 18:00 12/12/16 08:59 12/11/16 13:22 Jaquelin Xie NP ([facility]) Dec 11, 2016 16:08
[2016-12-11] MEDS ORDERED: NS 275ml ONE (17:44)
--- NOTE | 2016-12-11 18:07 | General Progress Note ---
Assessment/Plan Assessment/Plan This is a 76-year-old, morbidly obese female, admitted with anasarca and cellulitis of the lower leg. The patient was admitted to the directr observation unit on the monitor with the following medical problems. now transfered to icu as of 11-14-16, co of pruritis 1. Anasarca. She appears to be markedly swollen. She will need diuresis. Place the patient on Lasix 20 mg intravenous for now q.12 hours. Cardiology and Pulmonary on the case. We will follow orders. Check laboratory studies daily. Lasix drip was discontinued in am, HD started 2. Chronic hypercapnic respiratory failure. Continue with vent support per Pulmonary. will discuss with pulmonary regarding trach issues 3 anemia. s./p transfusion of PRBC Continue monitoring CBC daily. patient to start Procrit per nephrology 4. Pulmonary hypertension. hold Eliquis as patient is ob positive 5. Chronic kidney disease. On HD for now per nephrology. 6. DVT prophylaxis. scds 7. nutrition: patient didn't tolerate NGT placement, patient is now s/p PEG placement, tolerating tube feeding 8. Alkalosis: resolved 9. Generalized anxiety: Ativan prn, counselled for 15min 10. constipation: prn enema, continue with Colace and MiraLAX had revision of trach on 11-23-16 11. Anemia: s/p transfusion of one unit of PRBC Benadryl 25 mg iv q 6 prn itching tolerating tube feeding continue HD per nephrology trach revision done by Dr. Powell discussed with nursing staff HD per nephrology continue current care pt ot patient requesting evaluation for transfer to [place] once stable for transfer, will discuss with case managers Subjective Date patient seen: Dec 11, 2016 Allergies: Coded Allergies: AMOXICILLIN (Verified Allergy, Mild, RASH, 09/30/16) PENICILLINS (Unverified Allergy, Unknown, 09/30/16) All Systems: reviewed and negative except above Subjective patient had HD today, friend Sean at bedside Objective Last 24 Hour Vital Signs Date Time Temp Pulse Resp B/P (MAP) Pulse Ox O2 Delivery O2 Flow Rate FiO2 12/11/16 16:00 97.3 65 14 102/54 100 Mechanical Ventilator 50 12/11/16 16:00 50 12/11/16 14:41 78 14 50 12/11/16 13:18 67 14 50 12/11/16 12:20 82 12/11/16 12:00 50 12/11/16 12:00 96.4 70 15 109/63 98 Mechanical Ventilator 50 12/11/16 10:51 76 14 50 12/11/16 09:19 70 15 50 12/11/16 08:00 82 12/11/16 08:00 50 12/11/16 08:00 97.7 83 16 111/67 99 Mechanical Ventilator 50 12/11/16 07:12 92 15 50 12/11/16 05:10 98 17 50 12/11/16 04:00 97.7 98 16 139/98 100 Mechanical Ventilator 12/11/16 04:00 50 12/11/16 03:51 103 12/11/16 02:46 100 15 50 12/11/16 00:59 97 15 50 12/11/16 00:00 50 12/11/16 00:00 98.1 100 16 115/45 99 Mechanical Ventilator 12/11/16 00:00 93 12/10/16 22:42 71 14 50 12/10/16 21:00 88 15 50 12/10/16 20:00 97.5 75 15 95/48 98 Mechanical Ventilator 12/10/16 20:00 50 12/10/16 20:00 97.5 75 15 98 Mechanical Ventilator 12/10/16 20:00 72 12/10/16 18:50 79 16 50 Intake and Output 12/11/16 12/12/16 19:00 07:00 Intake Total 220 ml Balance 220 ml Tube Feeding 160 ml Other 60 ml Laboratory Tests 12/11/16 04:15: White Blood Count 13.3H, Red Blood Count 2.77L, Hemoglobin 8.5L, Hematocrit 28.4L, Mean Corpuscular Volume 102H, Mean Corpuscular Hemoglobin 30.6, Mean Corpuscular Hemoglobin Concent 29.8L, Red Cell Distribution Width 20.2H, Platelet Count 187, Mean Platelet Volume 6.1L, Neutrophils (%) (Auto) 75.1H, Lymphocytes (%) (Auto) 11.2L, Monocytes (%) (Auto) 11.4H, Eosinophils (%) (Auto ) 0.9, Basophils (%) (Auto) 1.4, Sodium Level 138, Potassium Level 4.0, Chloride Level 98, Carbon Dioxide Level 32, Anion Gap 8, Blood Urea Nitrogen 19H , Creatinine 3.0H, Estimat Glomerular Filtration Rate , Glucose Level 116H, Calcium Level 8.9, Total Bilirubin 1.3H, Direct Bilirubin 0.7H, Aspartate Amino Transf (AST/SGOT) 20, Alanine Aminotransferase (ALT/SGPT) < 6L, Alkaline Phosphatase 109, Total Protein 8.1, Albumin 2.2L, Globulin 5.9, Albumin/ Globulin Ratio 0.4L Height (Feet): 5 Height (Inches): 3.00 Weight (Pounds): 377 General Appearance: no apparent distress, alert EENT: PERRL/EOMI, pharynx normal Neck: non-tender, supple Cardiovascular: normal rate, regular rhythm, no gallop/murmur, no JVD Respiratory/Chest: decreased breath sounds Abdomen: decreased bowel sounds Extremities: swelling Edema: 3+ Arm (L), 3+ Arm (R), 3+ Leg (L), 3+ Leg (R), 3+ Pedal (L), 3+ Pedal ( R), 3+ Generalized Edema: moderate edema, severe edema Neurologic: [employer] consultant II-XII grossly normal, oriented x 3, responsive Skin: rash Manny Nolan MD Dec 11, 2016 18:07
[2016-12-11 20:00] VITALS: BP 103/52
[2016-12-11] MEDS: Dyna-Hex 2% Top Sol 2oz TOPIC SCH (20:41)
--- NOTE | 2016-12-11 21:07 | General Progress Note ---
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 Will give Vitamin K and then repeat mixing study. --> Vitamin K has been given, results pending --> INR improving #. Anemia secondary to chronic disease. Continue to closely monitor. Work up reviewed --> s/p multiple transfusions. watch counts, transfuse if hgb is below 8. # Positive occult blood. r/o gi bleed. gi following #. Anemia of kidney disease. Nephrology service following #. PEG tube placement. tolerating feeds #. Chronic ventilator dependent #. Permanent atrial fibrillation. #. Cellulitis and chronic lymphedema of the bilateral lower extremities. #. Congestive heart failure. Subjective ROS Limited/Unobtainable: Yes Allergies: Coded Allergies: AMOXICILLIN (Verified Allergy, Mild, RASH, 09/30/16) PENICILLINS (Unverified Allergy, Unknown, 09/30/16) Subjective no major changes Objective Last 24 Hour Vital Signs Date Time Temp Pulse Resp B/P (MAP) Pulse Ox O2 Delivery O2 Flow Rate FiO2 12/11/16 20:00 50 12/11/16 19:13 65 14 50 12/11/16 18:10 75 14 50 12/11/16 16:00 97.3 65 14 102/54 100 Mechanical Ventilator 50 12/11/16 16:00 50 12/11/16 16:00 67 12/11/16 14:41 78 14 50 12/11/16 13:18 67 14 50 12/11/16 12:20 82 12/11/16 12:00 50 12/11/16 12:00 96.4 70 15 109/63 98 Mechanical Ventilator 50 12/11/16 10:51 76 14 50 12/11/16 09:19 70 15 50 12/11/16 08:00 82 12/11/16 08:00 50 12/11/16 08:00 97.7 83 16 111/67 99 Mechanical Ventilator 50 12/11/16 07:12 92 15 50 12/11/16 05:10 98 17 50 12/11/16 04:00 97.7 98 16 139/98 100 Mechanical Ventilator 12/11/16 04:00 50 12/11/16 03:51 103 12/11/16 02:46 100 15 50 12/11/16 00:59 97 15 50 12/11/16 00:00 50 12/11/16 00:00 98.1 100 16 115/45 99 Mechanical Ventilator 12/11/16 00:00 93 12/10/16 22:42 71 14 50 Intake and Output 12/11/16 12/12/16 19:00 07:00 Intake Total 810 ml Balance 810 ml Free Water 100 ml IV Total 110 ml Tube Feeding 480 ml Other 120 ml Laboratory Tests 12/11/16 04:15: White Blood Count 13.3H, Red Blood Count 2.77L, Hemoglobin 8.5L, Hematocrit 28.4L, Mean Corpuscular Volume 102H, Mean Corpuscular Hemoglobin 30.6, Mean Corpuscular Hemoglobin Concent 29.8L, Red Cell Distribution Width 20.2H, Platelet Count 187, Mean Platelet Volume 6.1L, Neutrophils (%) (Auto) 75.1H, Lymphocytes (%) (Auto) 11.2L, Monocytes (%) (Auto) 11.4H, Eosinophils (%) (Auto ) 0.9, Basophils (%) (Auto) 1.4, Sodium Level 138, Potassium Level 4.0, Chloride Level 98, Carbon Dioxide Level 32, Anion Gap 8, Blood Urea Nitrogen 19H , Creatinine 3.0H, Estimat Glomerular Filtration Rate , Glucose Level 116H, Calcium Level 8.9, Total Bilirubin 1.3H, Direct Bilirubin 0.7H, Aspartate Amino Transf (AST/SGOT) 20, Alanine Aminotransferase (ALT/SGPT) < 6L, Alkaline Phosphatase 109, Total Protein 8.1, Albumin 2.2L, Globulin 5.9, Albumin/ Globulin Ratio 0.4L Height (Feet): 5 Height (Inches): 3.00 Weight (Pounds): 377 General Appearance: alert EENT: TMs normal Abdomen: non tender, soft Edema: mild edema Neurologic: alert Skin: normal pigmentation NAIDA MANJARREZ Dec 11, 2016 21:07
--- NOTE | 2016-12-11 22:43 | Cardiology Progress Note ---
Assessment/Plan Assessment/Plan a fib permanent not anticoagulated vent dependent Subjective Subjective patient is the vent, trach, unresponsive Objective Last 24 Hour Vital Signs Date Time Temp Pulse Resp B/P (MAP) Pulse Ox O2 Delivery O2 Flow Rate FiO2 12/11/16 21:20 67 14 50 12/11/16 20:00 97.9 76 14 103/52 99 Mechanical Ventilator 50 12/11/16 20:00 64 12/11/16 20:00 50 12/11/16 19:13 65 14 50 12/11/16 18:10 75 14 50 12/11/16 16:00 97.3 65 14 102/54 100 Mechanical Ventilator 50 12/11/16 16:00 50 12/11/16 16:00 67 12/11/16 14:41 78 14 50 12/11/16 13:18 67 14 50 12/11/16 12:20 82 12/11/16 12:00 50 12/11/16 12:00 96.4 70 15 109/63 98 Mechanical Ventilator 50 12/11/16 10:51 76 14 50 12/11/16 09:19 70 15 50 12/11/16 08:00 82 12/11/16 08:00 50 12/11/16 08:00 97.7 83 16 111/67 99 Mechanical Ventilator 50 12/11/16 07:12 92 15 50 12/11/16 05:10 98 17 50 12/11/16 04:00 97.7 98 16 139/98 100 Mechanical Ventilator 12/11/16 04:00 50 12/11/16 03:51 103 12/11/16 02:46 100 15 50 12/11/16 00:59 97 15 50 12/11/16 00:00 50 12/11/16 00:00 98.1 100 16 115/45 99 Mechanical Ventilator 12/11/16 00:00 93 12/10/16 22:42 71 14 50 General Appearance: lethargic, obese, other - on vent, has trach EENT: PERRL/EOMI Neck: other - trach Rhythm: Afib Cardiovascular: arrhythmia Respiratory/Chest: crackles/rales Abdomen: non tender Extremities: other - edema, erythema Intake and Output 12/11/16 12/12/16 19:00 07:00 Intake Total 810 ml Balance 810 ml Free Water 100 ml IV Total 110 ml Tube Feeding 480 ml Other 120 ml Laboratory Tests Test 12/11/16 04:15 White Blood Count 13.3 K/UL (4.8-10.8) H Red Blood Count 2.77 M/UL (4.20-5.40) L Hemoglobin 8.5 G/DL (12.0-16.0) L Hematocrit 28.4 % (37.0-47.0) L Mean Corpuscular Volume 102 FL (80-99) H Mean Corpuscular Hemoglobin 30.6 PG (27.0-31.0) Mean Corpuscular Hemoglobin Concent 29.8 G/DL (32.0-36.0) L Red Cell Distribution Width 20.2 % (11.6-14.8) H Platelet Count 187 K/UL (150-450) Mean Platelet Volume 6.1 FL (6.5-10.1) L Neutrophils (%) (Auto) 75.1 % (45.0-75.0) H Lymphocytes (%) (Auto) 11.2 % (20.0-45.0) L Monocytes (%) (Auto) 11.4 % (1.0-10.0) H Eosinophils (%) (Auto) 0.9 % (0.0-3.0) Basophils (%) (Auto) 1.4 % (0.0-2.0) Sodium Level 138 MMOL/L (136-145) Potassium Level 4.0 MMOL/L (3.5-5.1) Chloride Level 98 MMOL/L (98-107) Carbon Dioxide Level 32 MMOL/L (21-32) Anion Gap 8 mmol/L (5-15) Blood Urea Nitrogen 19 mg/dL (7-18) H Creatinine 3.0 MG/DL (0.55-1.30) H Estimat Glomerular Filtration Rate mL/min (>60) Glucose Level 116 MG/DL (74-106) H Calcium Level 8.9 MG/DL (8.5-10.1) Total Bilirubin 1.3 MG/DL (0.2-1.0) H Direct Bilirubin 0.7 MG/DL (0.0-0.3) H Aspartate Amino Transf (AST/SGOT) 20 U/L (15-37) Alanine Aminotransferase (ALT/SGPT) < 6 U/L (12-78) L Alkaline Phosphatase 109 U/L (46-116) Total Protein 8.1 G/DL (6.4-8.2) Albumin 2.2 G/DL (3.4-5.0) L Globulin 5.9 g/dL Albumin/Globulin Ratio 0.4 (1.0-2.7) L Microbiology Date/Time Source Procedure Growth Status 12/10/16 06:00 Other(Specify in comment) Gram Stain - Final Resulted 12/10/16 06:00 Other(Specify in comment) Wound Culture Pending Resulted MARA TANG Dec 11, 2016 22:43
[2016-12-12] VITALS: BP 122/63
[2016-12-12 04:00] VITALS: BP 141/97
[2016-12-12 04:20] LABS: ABG ALLEN TEST POSITIVE; ABG BASE EXCESS 0.8; ABG PCO2 60.6 mmHg (35.0-45.0)
[2016-12-12] MEDS: Midodrine 10mg tab GT SCH ×3 (06:11→22:03)
--- NOTE | 2016-12-12 07:49 | Infectious Diseases Prog Note ---
Assessment/Plan Assessment/Plan A. Leukocytosis Cellulitis of legs s/p Rx VDRF s/p revision tracheostomy COPD CKD, ESRD Anemia Morbid obesity Diastolic CHF P: Continue Cefepime f/u CXR Subjective ROS Limited/Unobtainable: Yes Allergies: Coded Allergies: AMOXICILLIN (Verified Allergy, Mild, RASH, 09/30/16) PENICILLINS (Unverified Allergy, Unknown, 09/30/16) Objective Vital Signs Last 24 Hour Vital Signs Date Time Temp Pulse Resp B/P (MAP) Pulse Ox O2 Delivery O2 Flow Rate FiO2 12/12/16 06:44 76 18 50 12/12/16 05:06 110 23 50 12/12/16 04:00 97.5 109 16 141/97 100 Mechanical Ventilator 100 12/12/16 04:00 100 12/12/16 04:00 98 12/12/16 03:30 113 19 50 12/12/16 01:28 94 16 50 12/12/16 00:00 50 12/12/16 00:00 85 12/12/16 00:00 97.8 86 16 122/63 99 Mechanical Ventilator 50 12/11/16 23:23 87 17 50 12/11/16 21:20 67 14 50 12/11/16 20:00 97.9 76 14 103/52 99 Mechanical Ventilator 50 12/11/16 20:00 64 12/11/16 20:00 50 12/11/16 19:13 65 14 50 12/11/16 18:10 75 14 50 12/11/16 16:00 97.3 65 14 102/54 100 Mechanical Ventilator 50 12/11/16 16:00 50 12/11/16 16:00 67 12/11/16 14:41 78 14 50 12/11/16 13:18 67 14 50 12/11/16 12:20 82 12/11/16 12:00 50 12/11/16 12:00 96.4 70 15 109/63 98 Mechanical Ventilator 50 12/11/16 10:51 76 14 50 12/11/16 09:19 70 15 50 12/11/16 08:00 82 12/11/16 08:00 50 12/11/16 08:00 97.7 83 16 111/67 99 Mechanical Ventilator 50 Height (Feet): 5 Height (Inches): 3.00 Weight (Pounds): 387 General Appearance: other - obese HEENT: status post trach Respiratory/Chest: rhonchi - bilaterally, other - on ventilator Cardiovascular: normal rate, other - RIj HD line Abdomen: soft, non tender, other - GT feeding Extremities: other - generalized edema Skin: rash, other - on left lower leg Neurologic/Psychiatric: other - sleeping Microbiology Date/Time Source Procedure Growth Status 12/10/16 06:00 Other(Specify in comment) Gram Stain - Final Resulted 12/10/16 06:00 Other(Specify in comment) Wound Culture Pending Resulted Laboratory Tests Test 12/12/16 03:58 Arterial Blood pH 7.283 (7.350-7.450) Arterial Blood Partial Pressure CO2 60.6 mmHg (35.0-45.0) *H Arterial Blood Partial Pressure O2 148.9 mmHg (75.0-100.0) H Arterial Blood HCO3 28.0 mmol/L (22.0-26.0) H Arterial Blood Oxygen Saturation 99.0 % (92.0-98.0) H Arterial Blood Base Excess 0.8 Mike Test Positive Current Medications Medications (Trade) Dose Ordered Sig/Kalyn Route PRN Reason Start Time Stop Time Status Last Admin Dose Admin Acetaminophen (Tylenol) 650 mg Q4H PRN ORAL Mild Pain/Temp > 100.5 12/03/16 15:00 12/12/16 14:59 12/07/16 09:17 Allopurinol (Zyloprim) 200 mg DAILY ORAL 12/04/16 09:00 01/02/17 08:59 12/11/16 08:42 Cefepime HCl 500 mg/Dextrose 55 ml @ 110 mls/hr DAILY@1600 IVPB 12/12/16 16:00 12/19/16 15:59 Chlorhexidine Gluconate (Marni-Hex 2%) 1 applic Q24H TOPIC 12/03/16 20:00 12/27/16 19:59 12/11/16 20:41 Diphenhydramine HCl (Benadryl) 25 mg Q6H PRN IVP Itching 12/03/16 15:00 12/19/16 14:59 Docusate Sodium (Colace) 100 mg TWICE A DAY GT 12/04/16 09:00 01/03/17 08:59 12/08/16 18:07 Epoetin Santos (Procrit (for non ESRD use)) 10,000 units MON-WED-TUE SUBQ 12/03/16 21:00 12/17/16 20:59 12/10/16 21:02 Folic Acid (Folate) 1 mg DAILY ORAL 12/04/16 09:00 12/12/16 08:59 12/11/16 08:42 Gabapentin (Neurontin) 600 mg BID ORAL 12/03/16 18:00 12/14/16 08:59 12/11/16 17:06 Midodrine (Pro-Amatine) 10 mg EVERY 8 HOURS GT 12/05/16 22:00 01/04/17 21:59 12/12/16 06:11 Phosphorus (Phospha 250 Neutral) 500 mg THREE TIMES A DAY GT 12/07/16 18:00 01/06/17 17:59 12/11/16 17:06 Polyethylene Glycol (Miralax) 17 gm DAILY ORAL 12/04/16 09:00 12/12/16 08:59 12/08/16 09:13 Pravastatin Sodium (Pravachol) 20 mg BEDTIME ORAL 12/03/16 21:00 12/12/16 20:59 12/11/16 20:41 Ranitidine HCl (Zantac) 150 mg TWICE A DAY GT 12/05/16 18:00 01/04/17 17:59 12/11/16 17:06 Sildenafil Citrate (Revatio) 20 mg THREE TIMES A DAY ORAL 12/03/16 18:00 12/12/16 08:59 12/11/16 17:06 CARY ESTES Dec 12, 2016 07:49
[2016-12-12 08:00] VITALS: BP 143/64
--- NOTE | 2016-12-12 08:00 | Pulmonology Progress Note ---
Assessment/Plan Assessment/Plan ASSESSMENT chronic hypercapnic respiratory failure VDRF/trach Probable VAP anasarca CHF diastolic s/p 11/23 trach revision acute on chronic renal failure, requiring HD new onset of HD 11/24 s/p PEG 12/03 coagulopathy ( due to a/coagulation and sepsis) cellulitis BLE and R arm, s/p Rx hypotension anemia of chronic disease anemia requiring blood transfusion pulmonary HTN severe MR and TR morbid obesity Pickwickian syndrome MINA permanent A fib cor pulmonale chronic lymphedema with venous stasis BLE hx of breast Ca stool OB + PLAN OF CARE FRANCISCO Vent/trach care pulmonary toilet ABG this am with worsening hypercapnia and acidosis( done after respiratory distress) increased TV and AC rate repeat ABG in am s/p trach revision 11/23 if continue with problem, will consider to bring ENT for further reevaluation s/p Lasix gtt , no change, worsening creat ( discussed with nephro) eventually started on HD nephro follows on Midodrine for BP management with holding parameters ECHO with EF 60-65% and RVSP of 32 c/w mild pulmonary hTN, severe MR and TR continue Sildenafil abx, ID follows Sputum cx with PSA and Providencia blood cx negative wound care as per wound nurse recommendations venous Duplex BLE and BUE negative Arterial Duplex BLE ( was a technically difficult study), but no evidence of stenosis monitor HH, transfuse prn anemia w/up c/w anemia of chronic disease continue EPO HD as per nephro, monitor renal parameters, lytes nephro follows bowel regimen strict aspiration precautions, GT feeding, monitor tolerance, site care abdominal US no dilated ducts awaiting for placement ( has vent/trach and needs HD), challenging placement case discussed and evaluated by supervising physician Subjective Allergies: Coded Allergies: AMOXICILLIN (Verified Allergy, Mild, RASH, 09/30/16) PENICILLINS (Unverified Allergy, Unknown, 09/30/16) Subjective episode of respiratory distress earlier this am ABG done, vent settings increased afebrile, no labs this am apparently problem with trach when turning, trach revision done on this admission Objective Last 24 Hour Vital Signs Date Time Temp Pulse Resp B/P (MAP) Pulse Ox O2 Delivery O2 Flow Rate FiO2 12/12/16 06:44 76 18 50 12/12/16 05:06 110 23 50 12/12/16 04:00 97.5 109 16 141/97 100 Mechanical Ventilator 100 12/12/16 04:00 100 12/12/16 04:00 98 12/12/16 03:30 113 19 50 12/12/16 01:28 94 16 50 12/12/16 00:00 50 12/12/16 00:00 85 12/12/16 00:00 97.8 86 16 122/63 99 Mechanical Ventilator 50 12/11/16 23:23 87 17 50 12/11/16 21:20 67 14 50 12/11/16 20:00 97.9 76 14 103/52 99 Mechanical Ventilator 50 12/11/16 20:00 64 12/11/16 20:00 50 12/11/16 19:13 65 14 50 12/11/16 18:10 75 14 50 12/11/16 16:00 97.3 65 14 102/54 100 Mechanical Ventilator 50 12/11/16 16:00 50 12/11/16 16:00 67 12/11/16 14:41 78 14 50 12/11/16 13:18 67 14 50 12/11/16 12:20 82 12/11/16 12:00 50 12/11/16 12:00 96.4 70 15 109/63 98 Mechanical Ventilator 50 12/11/16 10:51 76 14 50 12/11/16 09:19 70 15 50 12/11/16 08:00 82 12/11/16 08:00 50 12/11/16 08:00 97.7 83 16 111/67 99 Mechanical Ventilator 50 Objective Status: awake, alert, responsive, bedridden, vent dependent morbidly obese with generalized anasarca female on vent AC 700-18-50% HEENT: atraumatic, normocephalic Neck: trach Shiley #6, secretions moderate, yellow, thick, R neck HD catheter Lungs: BS with decreased air intake Heart: HR/BP stable, irregular A fib on tele, rate controlled Abdomen: soft, non-tender, obese, active bowel sounds, G tube with TF Extremities: anasarca; BLE edema +2, chronic lymphedema BLE Microbiology Date/Time Source Procedure Growth Status 12/10/16 06:00 Other(Specify in comment) Gram Stain - Final Resulted 12/10/16 06:00 Other(Specify in comment) Wound Culture Pending Resulted Laboratory Tests 12/12/16 03:58: Arterial Blood pH 7.283L, Arterial Blood Partial Pressure CO2 60.6*H, Arterial Blood Partial Pressure O2 148.9H, Arterial Blood HCO3 28.0H, Arterial Blood Oxygen Saturation 99.0H, Arterial Blood Base Excess 0.8, Mike Test Positive Current Medications Medications (Trade) Dose Ordered Sig/Kalyn Route PRN Reason Start Time Stop Time Status Last Admin Dose Admin Acetaminophen (Tylenol) 650 mg Q4H PRN ORAL Mild Pain/Temp > 100.5 12/03/16 15:00 12/12/16 14:59 12/07/16 09:17 Allopurinol (Zyloprim) 200 mg DAILY ORAL 12/04/16 09:00 01/02/17 08:59 12/11/16 08:42 Cefepime HCl 500 mg/Dextrose 55 ml @ 110 mls/hr DAILY@1600 IVPB 12/12/16 16:00 12/19/16 15:59 Chlorhexidine Gluconate (Marni-Hex 2%) 1 applic Q24H TOPIC 12/03/16 20:00 12/27/16 19:59 12/11/16 20:41 Diphenhydramine HCl (Benadryl) 25 mg Q6H PRN IVP Itching 12/03/16 15:00 12/19/16 14:59 Docusate Sodium (Colace) 100 mg TWICE A DAY GT 12/04/16 09:00 01/03/17 08:59 12/08/16 18:07 Epoetin Santos (Procrit (for non ESRD use)) 10,000 units TUE-TUE-TUE SUBQ 12/03/16 21:00 12/17/16 20:59 12/10/16 21:02 Folic Acid (Folate) 1 mg DAILY ORAL 12/04/16 09:00 12/12/16 08:59 12/11/16 08:42 Gabapentin (Neurontin) 600 mg BID ORAL 12/03/16 18:00 12/14/16 08:59 12/11/16 17:06 Midodrine (Pro-Amatine) 10 mg EVERY 8 HOURS GT 12/05/16 22:00 01/04/17 21:59 12/12/16 06:11 Phosphorus (Phospha 250 Neutral) 500 mg THREE TIMES A DAY GT 12/07/16 18:00 01/06/17 17:59 12/11/16 17:06 Polyethylene Glycol (Miralax) 17 gm DAILY ORAL 12/04/16 09:00 12/12/16 08:59 12/08/16 09:13 Pravastatin Sodium (Pravachol) 20 mg BEDTIME ORAL 12/03/16 21:00 12/12/16 20:59 12/11/16 20:41 Ranitidine HCl (Zantac) 150 mg TWICE A DAY GT 12/05/16 18:00 01/04/17 17:59 12/11/16 17:06 Sildenafil Citrate (Revatio) 20 mg THREE TIMES A DAY ORAL 12/03/16 18:00 12/12/16 08:59 12/11/16 17:06 Rojas MedinaJaquelin chacon NP Dec 12, 2016 07:59
[2016-12-12] MEDS: Docusate 100mg/10ml Liq GT SCH ×2 (09:00→17:01)
[2016-12-12] MEDS: Phospha 250 Neutral tab GT SCH ×3 (09:24→17:01)
[2016-12-12] MEDS: Allopurinol 100mg Tab ORAL SCH (09:26)
--- NOTE | 2016-12-12 10:56 | Nephrology Progress Note ---
Assessment/Plan Problem List: (1) Renal failure Assessment: CKD + ACUTE (2) Acute and chronic respiratory failure (3) CHF (congestive heart failure) (4) Morbid obesity (5) Atrial fibrillation Assessment CKD- and acute renal failure - Acute respiratory failure s/p Trach Obese COPD , CHF, Diastolic MINA UTI Anemia GI Bleed, GI bleeding At Fib Pulm HTN h/o Low B12 Plan plan: Now has PEG HD 12/10, i next 12/13 K supplement as needed on EPOGEN 24 H urine collection in process: CrCl 6 Monitor renal parameters- optimize cardiac and pulm status pulmonary support- transfuse as needed ? DC planning post PEG, placement is complicated Subjective ROS Limited/Unobtainable: No Constitutional: Reports: malaise, weakness Objective Objective Last 24 Hour Vital Signs Date Time Temp Pulse Resp B/P (MAP) Pulse Ox O2 Delivery O2 Flow Rate FiO2 12/12/16 09:40 81 20 50 12/12/16 08:01 74 12/12/16 08:00 97.8 77 18 143/64 100 Mechanical Ventilator 100 12/12/16 08:00 100 12/12/16 06:44 76 18 50 12/12/16 05:06 110 23 50 12/12/16 04:00 97.5 109 16 141/97 100 Mechanical Ventilator 100 12/12/16 04:00 100 12/12/16 04:00 98 12/12/16 03:30 113 19 50 12/12/16 01:28 94 16 50 12/12/16 00:00 50 12/12/16 00:00 85 12/12/16 00:00 97.8 86 16 122/63 99 Mechanical Ventilator 50 12/11/16 23:23 87 17 50 12/11/16 21:20 67 14 50 12/11/16 20:00 97.9 76 14 103/52 99 Mechanical Ventilator 50 12/11/16 20:00 64 12/11/16 20:00 50 12/11/16 19:13 65 14 50 12/11/16 18:10 75 14 50 12/11/16 16:00 97.3 65 14 102/54 100 Mechanical Ventilator 50 12/11/16 16:00 50 12/11/16 16:00 67 12/11/16 14:41 78 14 50 12/11/16 13:18 67 14 50 12/11/16 12:20 82 11/4/17 12:00 50 12/11/16 12:00 96.4 70 15 109/63 98 Mechanical Ventilator 50 Laboratory Tests 12/12/16 03:58: Arterial Blood pH 7.283L, Arterial Blood Partial Pressure CO2 60.6*H, Arterial Blood Partial Pressure O2 148.9H, Arterial Blood HCO3 28.0H, Arterial Blood Oxygen Saturation 99.0H, Arterial Blood Base Excess 0.8, Mike Test Positive Height (Feet): 5 Height (Inches): 3.00 Weight (Pounds): 387 General Appearance: no apparent distress Cardiovascular: normal rate Respiratory/Chest: decreased breath sounds Abdomen: soft Objective edema extrs COURTNEY LOPEZ Dec 12, 2016 10:56
[2016-12-12 11:08] LABS: BASOPHILS % (AUTO) 1.3 % (0.0-2.0); EOSINOPHILS % (AUTO) 0.3 % (0.0-3.0); LYMPHOCYTES % (AUTO) 7.7 % (20.0-45.0); MEAN CORPUSCULAR HEMOGLOBIN 30.5 PG (27.0-31.0); MEAN CORPUSCULAR HGB CONC 29.7 G/DL (32.0-36.0); MEAN CORPUSCULAR VOLUME 103 FL (80-99); MEAN PLATELET VOLUME 5.8 FL (6.5-10.1); MONOCYTES % (AUTO) 8.3 % (1.0-10.0); NEUTROPHILS % (AUTO) 82.5 % (45.0-75.0); PLATELET COUNT 191 K/UL (150-450); RED BLOOD COUNT 2.73 M/UL (4.20-5.40); RED CELL DISTRIBUTION WIDTH 20.3 % (11.6-14.8); WHITE BLOOD COUNT 11.8 K/UL (4.8-10.8)
[2016-12-12 11:33] LABS: ANION GAP 4 mmol/L (5-15); CARBON DIOXIDE 35 MMOL/L (21-32); CHLORIDE 98 MMOL/L (98-107); CREATININE 3.4 MG/DL (0.55-1.30); MAGNESIUM 1.8 MG/DL (1.8-2.4); POTASSIUM 4.2 MMOL/L (3.5-5.1); SODIUM 137 MMOL/L (136-145)
[2016-12-12 12:00] VITALS: BP 130/56
[2016-12-12] MEDS: Albuterol/Ipratropium 3ml neb HHN PRN ×2 (13:42→17:21)
--- NOTE | 2016-12-12 14:41 | Cardiology Progress Note ---
Assessment/Plan Assessment/Plan a fib permanent not anticoagulated due to GI bleed vent dependent Subjective Subjective patient is the vent, trach, she is awake today and responds to verbal stimuli, denies chest pain Objective Last 24 Hour Vital Signs Date Time Temp Pulse Resp B/P (MAP) Pulse Ox O2 Delivery O2 Flow Rate FiO2 12/12/16 14:00 25 99 Mechanical Ventilator 50 12/12/16 14:00 50 12/12/16 13:56 76 20 100 Mechanical Ventilator 50 12/12/16 13:42 69 18 99 Mechanical Ventilator 100 12/12/16 13:42 100 12/12/16 12:42 79 20 50 12/12/16 12:00 97.3 79 22 130/56 100 Mechanical Ventilator 100 12/12/16 12:00 100 12/12/16 11:51 66 12/12/16 10:55 78 20 50 12/12/16 09:40 81 20 50 12/12/16 08:01 74 12/12/16 08:00 97.8 77 18 143/64 100 Mechanical Ventilator 100 12/12/16 08:00 100 12/12/16 06:44 76 18 50 12/12/16 05:06 110 23 50 12/12/16 04:00 97.5 109 16 141/97 100 Mechanical Ventilator 100 12/12/16 04:00 100 12/12/16 04:00 98 12/12/16 03:30 113 19 50 12/12/16 01:28 94 16 50 12/12/16 00:00 50 12/12/16 00:00 85 12/12/16 00:00 97.8 86 16 122/63 99 Mechanical Ventilator 50 12/11/16 23:23 87 17 50 12/11/16 21:20 67 14 50 12/11/16 20:00 97.9 76 14 103/52 99 Mechanical Ventilator 50 12/11/16 20:00 64 12/11/16 20:00 50 12/11/16 19:13 65 14 50 12/11/16 18:10 75 14 50 12/11/16 16:00 97.3 65 14 102/54 100 Mechanical Ventilator 50 12/11/16 16:00 50 12/11/16 16:00 67 12/11/16 14:41 78 14 50 General Appearance: obese, other - on vent, trach EENT: PERRL/EOMI Neck: JVD Rhythm: Afib Cardiovascular: tachycardia Respiratory/Chest: rhonchi - bilaterally Abdomen: soft Extremities: severe edema, other - mild erythema Laboratory Tests Test 12/12/16 03:58 12/12/16 10:50 Arterial Blood pH 7.283 (7.350-7.450) Arterial Blood Partial Pressure CO2 60.6 mmHg (35.0-45.0) *H Arterial Blood Partial Pressure O2 148.9 mmHg (75.0-100.0) H Arterial Blood HCO3 28.0 mmol/L (22.0-26.0) H Arterial Blood Oxygen Saturation 99.0 % (92.0-98.0) H Arterial Blood Base Excess 0.8 Mike Test Positive White Blood Count 11.8 K/UL (4.8-10.8) H Red Blood Count 2.73 M/UL (4.20-5.40) L Hemoglobin 8.3 G/DL (12.0-16.0) L Hematocrit 28.0 % (37.0-47.0) L Mean Corpuscular Volume 103 FL (80-99) H Mean Corpuscular Hemoglobin 30.5 PG (27.0-31.0) Mean Corpuscular Hemoglobin Concent 29.7 G/DL (32.0-36.0) L Red Cell Distribution Width 20.3 % (11.6-14.8) H Platelet Count 191 K/UL (150-450) Mean Platelet Volume 5.8 FL (6.5-10.1) L Neutrophils (%) (Auto) 82.5 % (45.0-75.0) H Lymphocytes (%) (Auto) 7.7 % (20.0-45.0) L Monocytes (%) (Auto) 8.3 % (1.0-10.0) Eosinophils (%) (Auto) 0.3 % (0.0-3.0) Basophils (%) (Auto) 1.3 % (0.0-2.0) Sodium Level 137 MMOL/L (136-145) Potassium Level 4.2 MMOL/L (3.5-5.1) Chloride Level 98 MMOL/L (98-107) Carbon Dioxide Level 35 MMOL/L (21-32) H Anion Gap 4 mmol/L (5-15) L Blood Urea Nitrogen 24 mg/dL (7-18) H Creatinine 3.4 MG/DL (0.55-1.30) H Estimat Glomerular Filtration Rate mL/min (>60) Glucose Level 115 MG/DL (74-106) H Calcium Level 9.0 MG/DL (8.5-10.1) Phosphorus Level 5.3 MG/DL (2.5-4.9) H Magnesium Level 1.8 MG/DL (1.8-2.4) Microbiology Date/Time Source Procedure Growth Status 12/10/16 06:00 Other(Specify in comment) Gram Stain - Final Resulted 12/10/16 06:00 Wound Culture - Preliminary Gram Negative Bacillus 1 Gram Negative Bacillus 2 Resulted MARA TANG Dec 12, 2016 14:41
[2016-12-12 16:14] VITALS: BP 99/65
[2016-12-12] MEDS: Cefepime 500mg in D5W 55ml IVPB SCH (17:01)
--- NOTE | 2016-12-12 18:18 | General Progress Note ---
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 Will give Vitamin K and then repeat mixing study. --> Vitamin K has been given, results pending --> INR improving #. Anemia secondary to chronic disease. Continue to closely monitor. Work up reviewed --> s/p multiple transfusions. watch counts, transfuse if hgb is below 8. # Positive occult blood. r/o gi bleed. gi following #. Anemia of kidney disease. Nephrology service following #. PEG tube placement. tolerating feeds #. Chronic ventilator dependent #. Permanent atrial fibrillation. #. Cellulitis and chronic lymphedema of the bilateral lower extremities. #. Congestive heart failure. Subjective ROS Limited/Unobtainable: Yes Allergies: Coded Allergies: AMOXICILLIN (Verified Allergy, Mild, RASH, 09/30/16) PENICILLINS (Unverified Allergy, Unknown, 09/30/16) Subjective on a vent, afebrile, no major changes Objective Last 24 Hour Vital Signs Date Time Temp Pulse Resp B/P (MAP) Pulse Ox O2 Delivery O2 Flow Rate FiO2 12/12/16 17:35 80 20 100 Mechanical Ventilator 50 12/12/16 17:21 81 19 100 Mechanical Ventilator 50 12/12/16 17:21 50 12/12/16 17:03 75 18 50 12/12/16 16:14 97.5 76 18 99/65 100 Mechanical Ventilator 50 12/12/16 15:18 67 12/12/16 14:50 75 18 50 12/12/16 14:00 25 99 Mechanical Ventilator 50 12/12/16 14:00 50 12/12/16 13:56 76 20 100 Mechanical Ventilator 50 12/12/16 13:42 69 18 99 Mechanical Ventilator 100 12/12/16 13:42 100 12/12/16 12:42 79 20 50 12/12/16 12:00 97.3 79 22 130/56 100 Mechanical Ventilator 100 12/12/16 12:00 100 12/12/16 11:51 66 12/12/16 10:55 78 20 50 12/12/16 09:40 81 20 50 12/12/16 08:01 74 12/12/16 08:00 97.8 77 18 143/64 100 Mechanical Ventilator 100 12/12/16 08:00 100 12/12/16 06:44 76 18 50 12/12/16 05:06 110 23 50 12/12/16 04:00 97.5 109 16 141/97 100 Mechanical Ventilator 100 12/12/16 04:00 100 12/12/16 04:00 98 12/12/16 03:30 113 19 50 12/12/16 01:28 94 16 50 12/12/16 00:00 50 12/12/16 00:00 85 12/12/16 00:00 97.8 86 16 122/63 99 Mechanical Ventilator 50 12/11/16 23:23 87 17 50 12/11/16 21:20 67 14 50 12/11/16 20:00 97.9 76 14 103/52 99 Mechanical Ventilator 50 12/11/16 20:00 64 12/11/16 20:00 50 12/11/16 19:13 65 14 50 Intake and Output 12/12/16 12/13/16 19:00 07:00 Intake Total 665 ml Balance 665 ml IV Total 55 ml Tube Feeding 440 ml Other 170 ml Laboratory Tests 12/12/16 03:58: Arterial Blood pH 7.283L, Arterial Blood Partial Pressure CO2 60.6*H, Arterial Blood Partial Pressure O2 148.9H, Arterial Blood HCO3 28.0H, Arterial Blood Oxygen Saturation 99.0H, Arterial Blood Base Excess 0.8, Mike Test Positive 12/12/16 10:50: White Blood Count 11.8H, Red Blood Count 2.73L, Hemoglobin 8.3L, Hematocrit 28.0L, Mean Corpuscular Volume 103H, Mean Corpuscular Hemoglobin 30.5, Mean Corpuscular Hemoglobin Concent 29.7L, Red Cell Distribution Width 20.3H, Platelet Count 191, Mean Platelet Volume 5.8L, Neutrophils (%) (Auto) 82.5H, Lymphocytes (%) (Auto) 7.7L, Monocytes (%) (Auto) 8.3, Eosinophils (%) (Auto) 0.3, Basophils (%) (Auto) 1.3, Sodium Level 137, Potassium Level 4.2, Chloride Level 98, Carbon Dioxide Level 35H, Anion Gap 4L, Blood Urea Nitrogen 24H, Creatinine 3.4H, Estimat Glomerular Filtration Rate , Glucose Level 115H, Calcium Level 9.0, Phosphorus Level 5.3H, Magnesium Level 1.8 Height (Feet): 5 Height (Inches): 3.00 Weight (Pounds): 387 General Appearance: no apparent distress EENT: normal ENT inspection Neck: normal alignment Cardiovascular: no gallop/murmur Abdomen: non tender Extremities: normal range of motion, non-tender Skin: normal pigmentation NAIDA MANJARREZ Dec 12, 2016 18:18
[2016-12-12 20:00] VITALS: BP 120/54
[2016-12-12] MEDS: Dyna-Hex 2% Top Sol 2oz TOPIC SCH (20:46)
--- NOTE | 2016-12-12 20:49 | General Progress Note ---
Assessment/Plan Status: progressing Assessment/Plan This is a 76-year-old, morbidly obese female, admitted with anasarca and cellulitis of the lower leg. The patient was admitted to the directr observation unit on the monitor with the following medical problems. now transfered to icu as of 11-14-16, co of pruritis 1. Anasarca. She appears to be markedly swollen. She will need diuresis. Place the patient on Lasix 20 mg intravenous for now q.12 hours. Cardiology and Pulmonary on the case. We will follow orders. Check laboratory studies daily. Lasix drip was discontinued in am, HD started 2. Chronic hypercapnic respiratory failure. Continue with vent support per Pulmonary. will discuss with pulmonary regarding trach issues 3 anemia. s./p transfusion of PRBC Continue monitoring CBC daily. patient to start Procrit per nephrology 4. Pulmonary hypertension. hold Eliquis as patient is ob positive 5. Chronic kidney disease. On HD for now per nephrology. 6. DVT prophylaxis. scds 7. nutrition: patient didn't tolerate NGT placement, patient is now s/p PEG placement, tolerating tube feeding 8. Alkalosis: resolved 9. Generalized anxiety: Ativan prn, counselled for 15min 10. constipation: prn enema, continue with Colace and MiraLAX had revision of trach on 11-23-16 11. Anemia: s/p transfusion of one unit of PRBC 12. abdominal Pain: probable constipation, will order Miralax and colace fu serial abdominal exams, am labs Benadryl 25 mg iv q 6 prn itching tolerating tube feeding continue HD per nephrology trach revision done by Dr. Powell discussed with nursing staff HD per nephrology continue current care pt ot patient requesting evaluation for transfer to [place] once stable for transfer, will discuss with major case detective Subjective Date patient seen: Dec 12, 2016 Gastrointestinal/Abdominal: Reports: abdominal pain Allergies: Coded Allergies: AMOXICILLIN (Verified Allergy, Mild, RASH, 09/30/16) PENICILLINS (Unverified Allergy, Unknown, 09/30/16) All Systems: reviewed and negative except above Subjective complaining of LLQ abdominal pain, per nurse had bm today Objective Last 24 Hour Vital Signs Date Time Temp Pulse Resp B/P (MAP) Pulse Ox O2 Delivery O2 Flow Rate FiO2 12/12/16 19:43 85 18 50 11/5/17 17:35 80 20 100 Mechanical Ventilator 50 12/12/16 17:21 81 19 100 Mechanical Ventilator 50 12/12/16 17:21 50 12/12/16 17:03 75 18 50 12/12/16 16:14 97.5 76 18 99/65 100 Mechanical Ventilator 50 12/12/16 15:18 67 12/12/16 14:50 75 18 50 12/12/16 14:00 25 99 Mechanical Ventilator 50 12/12/16 14:00 50 12/12/16 13:56 76 20 100 Mechanical Ventilator 50 12/12/16 13:42 69 18 99 Mechanical Ventilator 100 12/12/16 13:42 100 12/12/16 12:42 79 20 50 12/12/16 12:00 97.3 79 22 130/56 100 Mechanical Ventilator 100 12/12/16 12:00 100 12/12/16 11:51 66 12/12/16 10:55 78 20 50 12/12/16 09:40 81 20 50 12/12/16 08:01 74 12/12/16 08:00 97.8 77 18 143/64 100 Mechanical Ventilator 100 12/12/16 08:00 100 12/12/16 06:44 76 18 50 12/12/16 05:06 110 23 50 12/12/16 04:00 97.5 109 16 141/97 100 Mechanical Ventilator 100 12/12/16 04:00 100 12/12/16 04:00 98 12/12/16 03:30 113 19 50 12/12/16 01:28 94 16 50 12/12/16 00:00 50 12/12/16 00:00 85 12/12/16 00:00 97.8 86 16 122/63 99 Mechanical Ventilator 50 12/11/16 23:23 87 17 50 12/11/16 21:20 67 14 50 Intake and Output 12/12/16 12/13/16 19:00 07:00 Intake Total 705 ml Balance 705 ml IV Total 55 ml Tube Feeding 480 ml Other 170 ml Laboratory Tests 12/12/16 03:58: Arterial Blood pH 7.283L, Arterial Blood Partial Pressure CO2 60.6*H, Arterial Blood Partial Pressure O2 148.9H, Arterial Blood HCO3 28.0H, Arterial Blood Oxygen Saturation 99.0H, Arterial Blood Base Excess 0.8, Mike Test Positive 12/12/16 10:50: White Blood Count 11.8H, Red Blood Count 2.73L, Hemoglobin 8.3L, Hematocrit 28.0L, Mean Corpuscular Volume 103H, Mean Corpuscular Hemoglobin 30.5, Mean Corpuscular Hemoglobin Concent 29.7L, Red Cell Distribution Width 20.3H, Platelet Count 191, Mean Platelet Volume 5.8L, Neutrophils (%) (Auto) 82.5H, Lymphocytes (%) (Auto) 7.7L, Monocytes (%) (Auto) 8.3, Eosinophils (%) (Auto) 0.3, Basophils (%) (Auto) 1.3, Sodium Level 137, Potassium Level 4.2, Chloride Level 98, Carbon Dioxide Level 35H, Anion Gap 4L, Blood Urea Nitrogen 24H, Creatinine 3.4H, Estimat Glomerular Filtration Rate , Glucose Level 115H, Calcium Level 9.0, Phosphorus Level 5.3H, Magnesium Level 1.8 Height (Feet): 5 Height (Inches): 3.00 Weight (Pounds): 387 General Appearance: morbidly obese EENT: PERRL/EOMI, pharynx normal Neck: non-tender, supple Cardiovascular: normal rate, regular rhythm, no gallop/murmur, no JVD Respiratory/Chest: chest wall non-tender, normal breath sounds, no respiratory distress Abdomen: tender Extremities: swelling Edema: 3+ Arm (L), 3+ Arm (R), 3+ Leg (L), 3+ Leg (R), 3+ Pedal (L), 3+ Pedal ( R), 3+ Generalized Edema: moderate edema Neurologic: valance cutter II-XII grossly normal, oriented x 3, responsive Skin: rash Lymphatic: normal anterior cervical (L), normal anterior cervical (R), normal posterior cervical (L), normal posterior cervical (R), normal submandibular (L) , normal submandibular (R), normal supraclavicular (L), normal supraclavicular ( R), normal axillary (L), normal axillary (R), normal inguinal (L), normal inguinal (R), normal other Manny Nolan MD Dec 12, 2016 20:49
[2016-12-12] MEDS: Miralax 17gm pkt ORAL SCH (21:30)
[2016-12-13] VITALS (7 sets, daily range): BP systolic 96–134; BP diastolic 35–63
[2016-12-13 06:00] LABS: MEAN CORPUSCULAR HEMOGLOBIN 31.1 PG (27.0-31.0); MEAN CORPUSCULAR HGB CONC 30.7 G/DL (32.0-36.0); MEAN CORPUSCULAR VOLUME 101 FL (80-99); MEAN PLATELET VOLUME 5.8 FL (6.5-10.1); PLATELET COUNT 193 K/UL (150-450); RED BLOOD COUNT 2.47 M/UL (4.20-5.40); RED CELL DISTRIBUTION WIDTH 19.9 % (11.6-14.8); WHITE BLOOD COUNT 7.8 K/UL (4.8-10.8)
[2016-12-13] MEDS: Midodrine 10mg tab GT SCH ×3 (06:00→22:57)
[2016-12-13 06:19] LABS: ALANINE AMINOTRANSFERASE < 6 U/L (12-78); ALBUMIN/GLOBULIN RATIO 0.4 (1.0-2.7); ANION GAP 8 mmol/L (5-15); ASPARTATE AMINO TRANSFERASE 20 U/L (15-37); CALCIUM 8.8 MG/DL (8.5-10.1); CARBON DIOXIDE 33 MMOL/L (21-32); CHLORIDE 97 MMOL/L (98-107); CREATININE 3.7 MG/DL (0.55-1.30); POTASSIUM 4.4 MMOL/L (3.5-5.1); SODIUM 137 MMOL/L (136-145); TOTAL PROTEIN 7.2 G/DL (6.4-8.2)
[2016-12-13 06:28] LABS: MAGNESIUM 1.8 MG/DL (1.8-2.4); PHOSPHORUS 5.4 MG/DL (2.5-4.9)
[2016-12-13 06:38] LABS: BILIRUBIN,DIRECT 0.6 MG/DL (0.0-0.3)
[2016-12-13 08:36] LABS: ANISOCYTOSIS 1+; BAND NEUTROPHILS % (MANUAL) 0 % (0-8); BASOPHILS % (MANUAL) 0 % (0-2); EOSINOPHILS % (MANUAL) 0 % (0-3); HYPOCHROMASIA 1+; LYMPHOCYTES % (MANUAL) 12 % (20-45); MACROCYTES 1+; NEUTROPHILS % (MANUAL) 75 % (45-75); PLATELET ESTIMATE ADEQUATE; POLYCHROMASIA 1+; TOTAL CELLS COUNTED 100
[2016-12-13 08:51] LABS: PLATELET MORPHOLOGY NORMAL
[2016-12-13] MEDS ORDERED: Docusate 100mg cap ORAL SCH (09:00)
[2016-12-13] MEDS: Docusate 100mg/10ml Liq GT SCH ×2 (09:51→18:17)
[2016-12-13] MEDS: Allopurinol 100mg Tab ORAL SCH (09:52)
[2016-12-13] MEDS: Phospha 250 Neutral tab GT SCH ×3 (09:52→18:17)
[2016-12-13] MEDS ORDERED: NS 275ml ONE (10:32)
[2016-12-13] MEDS ORDERED: Tubing IV Secondary IV ONE (10:32)
--- NOTE | 2016-12-13 10:47 | Infectious Diseases Prog Note ---
Assessment/Plan Assessment/Plan Assesment: Probable VAP Scx : PSA and Providencia -CXR 12/04: Improved although persistent right lung parenchymal infiltrates versus edema, over one day. Leukocytosis , increased , ,afebrile Cellulitis BLE and R arm- in the setting of chronic leg edema/venous stasis, s/ p Rx- Limited Venous duplex BLE (non diagnostic), no DVT R arm;Cellulitis resolved;Now residual venous stasis changes. -Bcx Neg Anasarca/ bilateral leg lymphedema VRE colonzied GT site : Wnd Cx : Morg M, Providencia ( Colonizer ) Anemia COPD Diastolic CHF Renal insufficiency- acute on chronic- started on HD 11/24 chronic resp failure, vent/trach dependent Gtbue pAfib pleural effusion MINA CKD GERD morbid obesity [facility] resident Plan: cont pt on Cefepime d# 3 / IV Vancomycin 11/11-11/12; 11/17-11/26 IV Cefepime 11/11-11/12 IV Ancef 11/12-11/28 Flagyl x1 11/11 monitor Cxray -extremity elevation -edema management -Monitor CBC/BMP, - vent support, trach care, aspiration precautions Subjective Constitutional: Denies: no symptoms, fever, chills, fatigue, anorexia, drenching sweats, other Allergies: Coded Allergies: AMOXICILLIN (Verified Allergy, Mild, RASH, 09/30/16) PENICILLINS (Unverified Allergy, Unknown, 09/30/16) Subjective Afebrile Objective Vital Signs Last 24 Hour Vital Signs Date Time Temp Pulse Resp B/P (MAP) Pulse Ox O2 Delivery O2 Flow Rate FiO2 12/13/16 09:11 96 18 50 12/13/16 08:00 97.7 81 18 102/57 98 Mechanical Ventilator 50 12/13/16 08:00 50 12/13/16 08:00 81 12/13/16 07:12 84 18 50 12/13/16 05:24 86 21 50 12/13/16 04:58 90 12/13/16 04:00 97.7 92 18 104/60 98 Mechanical Ventilator 50 12/13/16 04:00 50 12/13/16 03:26 87 22 50 12/13/16 01:29 80 20 50 12/13/16 00:00 92 12/13/16 00:00 99.0 98 18 134/35 100 Mechanical Ventilator 50 12/13/16 00:00 50 12/12/16 23:23 85 18 50 12/12/16 21:29 91 21 50 12/12/16 20:00 50 12/12/16 20:00 98.8 86 19 120/54 100 Mechanical Ventilator 50 12/12/16 20:00 86 12/12/16 19:43 85 18 50 12/12/16 17:35 80 20 100 Mechanical Ventilator 50 12/12/16 17:21 81 19 100 Mechanical Ventilator 50 12/12/16 17:21 50 12/12/16 17:03 75 18 50 12/12/16 16:14 97.5 76 18 99/65 100 Mechanical Ventilator 50 12/12/16 15:18 67 12/12/16 14:50 75 18 50 12/12/16 14:00 25 99 Mechanical Ventilator 50 12/12/16 14:00 50 12/12/16 13:56 76 20 100 Mechanical Ventilator 50 12/12/16 13:42 69 18 99 Mechanical Ventilator 100 12/12/16 13:42 100 12/12/16 12:42 79 20 50 12/12/16 12:00 97.3 79 22 130/56 100 Mechanical Ventilator 100 12/12/16 12:00 100 12/12/16 11:51 66 12/12/16 10:55 78 20 50 Height (Feet): 5 Height (Inches): 3.00 Weight (Pounds): 379 HEENT: anicteric Respiratory/Chest: normal breath sounds Cardiovascular: regular rhythm Laboratory Tests Test 12/12/16 10:50 12/13/16 04:10 White Blood Count 11.8 K/UL (4.8-10.8) H 7.8 K/UL (4.8-10.8) Red Blood Count 2.73 M/UL (4.20-5.40) L 2.47 M/UL (4.20-5.40) L Hemoglobin 8.3 G/DL (12.0-16.0) L 7.7 G/DL (12.0-16.0) L Hematocrit 28.0 % (37.0-47.0) L 25.0 % (37.0-47.0) L Mean Corpuscular Volume 103 FL (80-99) H 101 FL (80-99) H Mean Corpuscular Hemoglobin 30.5 PG (27.0-31.0) 31.1 PG (27.0-31.0) H Mean Corpuscular Hemoglobin Concent 29.7 G/DL (32.0-36.0) L 30.7 G/DL (32.0-36.0) L Red Cell Distribution Width 20.3 % (11.6-14.8) H 19.9 % (11.6-14.8) H Platelet Count 191 K/UL (150-450) 193 K/UL (150-450) Mean Platelet Volume 5.8 FL (6.5-10.1) L 5.8 FL (6.5-10.1) L Neutrophils (%) (Auto) 82.5 % (45.0-75.0) H % (45.0-75.0) Lymphocytes (%) (Auto) 7.7 % (20.0-45.0) L % (20.0-45.0) Monocytes (%) (Auto) 8.3 % (1.0-10.0) % (1.0-10.0) Eosinophils (%) (Auto) 0.3 % (0.0-3.0) % (0.0-3.0) Basophils (%) (Auto) 1.3 % (0.0-2.0) % (0.0-2.0) Sodium Level 137 MMOL/L (136-145) 137 MMOL/L (136-145) Potassium Level 4.2 MMOL/L (3.5-5.1) 4.4 MMOL/L (3.5-5.1) Chloride Level 98 MMOL/L (98-107) 97 MMOL/L (98-107) L Carbon Dioxide Level 35 MMOL/L (21-32) H 33 MMOL/L (21-32) H Anion Gap 4 mmol/L (5-15) L 8 mmol/L (5-15) Blood Urea Nitrogen 24 mg/dL (7-18) H 27 mg/dL (7-18) H Creatinine 3.4 MG/DL (0.55-1.30) H 3.7 MG/DL (0.55-1.30) H Estimat Glomerular Filtration Rate mL/min (>60) mL/min (>60) Glucose Level 115 MG/DL (74-106) H 81 MG/DL (74-106) Calcium Level 9.0 MG/DL (8.5-10.1) 8.8 MG/DL (8.5-10.1) Phosphorus Level 5.3 MG/DL (2.5-4.9) H 5.4 MG/DL (2.5-4.9) H Magnesium Level 1.8 MG/DL (1.8-2.4) 1.8 MG/DL (1.8-2.4) Differential Total Cells Counted 100 Neutrophils % (Manual) 75 % (45-75) Lymphocytes % (Manual) 12 % (20-45) L Monocytes % (Manual) 13 % (1-10) H Eosinophils % (Manual) 0 % (0-3) Basophils % (Manual) 0 % (0-2) Band Neutrophils 0 % (0-8) Platelet Estimate Adequate Platelet Morphology Normal Polychromasia 1+ Hypochromasia 1+ Anisocytosis 1+ Macrocytosis 1+ Total Bilirubin 1.3 MG/DL (0.2-1.0) H Direct Bilirubin 0.6 MG/DL (0.0-0.3) H Aspartate Amino Transf (AST/SGOT) 20 U/L (15-37) Alanine Aminotransferase (ALT/SGPT) < 6 U/L (12-78) L Alkaline Phosphatase 87 U/L (46-116) Total Protein 7.2 G/DL (6.4-8.2) Albumin 1.9 G/DL (3.4-5.0) L Globulin 5.3 g/dL Albumin/Globulin Ratio 0.4 (1.0-2.7) L Current Medications Medications (Trade) Dose Ordered Sig/Kalyn Route PRN Reason Start Time Stop Time Status Last Admin Dose Admin Albuterol/ Ipratropium (Albuterol/ Ipratropium) 3 ml Q4H PRN HHN Shortness of Breath 12/12/16 10:30 12/17/16 10:29 12/12/16 17:21 Allopurinol (Zyloprim) 200 mg DAILY ORAL 12/04/16 09:00 01/02/17 08:59 12/13/16 09:52 Cefepime HCl 500 mg/Dextrose 55 ml @ 110 mls/hr DAILY@1600 IVPB 12/12/16 16:00 12/19/16 15:59 12/12/16 17:01 Chlorhexidine Gluconate (Marni-Hex 2%) 1 applic Q24H TOPIC 12/03/16 20:00 12/27/16 19:59 12/12/16 20:46 Diphenhydramine HCl (Benadryl) 25 mg Q6H PRN IVP Itching 12/03/16 15:00 12/19/16 14:59 Docusate Sodium (Colace) 100 mg TWICE A DAY GT 12/04/16 09:00 01/03/17 08:59 12/13/16 09:51 Epoetin Santos (Procrit (for non ESRD use)) 10,000 units TUE-TUE-TUE SUBQ 12/03/16 21:00 12/17/16 20:59 12/10/16 21:02 Gabapentin (Neurontin) 600 mg BID ORAL 12/03/16 18:00 12/14/16 08:59 12/13/16 09:51 Midodrine (Pro-Amatine) 10 mg EVERY 8 HOURS GT 12/12/16 14:00 01/11/17 13:59 12/13/16 06:00 Phosphorus (Phospha 250 Neutral) 500 mg THREE TIMES A DAY GT 12/07/16 18:00 01/06/17 17:59 12/13/16 09:52 Polyethylene Glycol (Miralax) 17 gm BEDTIME ORAL 12/12/16 21:30 01/11/17 21:29 12/12/16 21:30 Ranitidine HCl (Zantac) 150 mg TWICE A DAY GT 12/05/16 18:00 01/04/17 17:59 12/13/16 09:51 LINDSEY HILL M.D. Dec 13, 2016 10:47
--- NOTE | 2016-12-13 11:00 | Nephrology Progress Note ---
Assessment/Plan Problem List: (1) Renal failure Assessment: CKD + ACUTE (2) Acute and chronic respiratory failure (3) CHF (congestive heart failure) (4) Morbid obesity (5) Atrial fibrillation Assessment stable from renal stand CKD- and acute renal failure - Acute respiratory failure s/p Trach Obese COPD , CHF, Diastolic MINA UTI Anemia GI Bleed, GI bleeding At Fib Pulm HTN h/o Low B12 Plan plan: Now has PEG- HD 12/10, i next 12/13 today K supplement as needed on EPOGEN 24 H urine collection in process: CrCl 6 Monitor renal parameters- optimize cardiac and pulm status pulmonary support- transfuse as needed ? DC planning post PEG, placement is complicated Subjective ROS Limited/Unobtainable: No Constitutional: Reports: malaise Objective Objective Last 24 Hour Vital Signs Date Time Temp Pulse Resp B/P (MAP) Pulse Ox O2 Delivery O2 Flow Rate FiO2 12/13/16 10:44 87 18 50 12/13/16 09:11 96 18 50 12/13/16 08:00 97.7 81 18 102/57 98 Mechanical Ventilator 50 12/13/16 08:00 50 12/13/16 08:00 81 12/13/16 07:12 84 18 50 12/13/16 05:24 86 21 50 12/13/16 04:58 90 12/13/16 04:00 97.7 92 18 104/60 98 Mechanical Ventilator 50 12/13/16 04:00 50 12/13/16 03:26 87 22 50 12/13/16 01:29 80 20 50 12/13/16 00:00 92 12/13/16 00:00 99.0 98 18 134/35 100 Mechanical Ventilator 50 12/13/16 00:00 50 12/12/16 23:23 85 18 50 12/12/16 21:29 91 21 50 12/12/16 20:00 50 12/12/16 20:00 98.8 86 19 120/54 100 Mechanical Ventilator 50 12/12/16 20:00 86 12/12/16 19:43 85 18 50 12/12/16 17:35 80 20 100 Mechanical Ventilator 50 12/12/16 17:21 81 19 100 Mechanical Ventilator 50 12/12/16 17:21 50 12/12/16 17:03 75 18 50 12/12/16 16:14 97.5 76 18 99/65 100 Mechanical Ventilator 50 12/12/16 15:18 67 12/12/16 14:50 75 18 50 12/12/16 14:00 25 99 Mechanical Ventilator 50 12/12/16 14:00 50 12/12/16 13:56 76 20 100 Mechanical Ventilator 50 12/12/16 13:42 69 18 99 Mechanical Ventilator 100 12/12/16 13:42 100 12/12/16 12:42 79 20 50 12/12/16 12:00 97.3 79 22 130/56 100 Mechanical Ventilator 100 12/12/16 12:00 100 12/12/16 11:51 66 Laboratory Tests 12/13/16 04:10: White Blood Count 7.8, Red Blood Count 2.47L, Hemoglobin 7.7L, Hematocrit 25.0L , Mean Corpuscular Volume 101H, Mean Corpuscular Hemoglobin 31.1H, Mean Corpuscular Hemoglobin Concent 30.7L, Red Cell Distribution Width 19.9H, Platelet Count 193, Mean Platelet Volume 5.8L, Neutrophils (%) (Auto) , Lymphocytes (%) (Auto) , Monocytes (%) (Auto) , Eosinophils (%) (Auto) , Basophils (%) (Auto) , Differential Total Cells Counted 100, Neutrophils % ( Manual) 75, Lymphocytes % (Manual) 12L, Monocytes % (Manual) 13H, Eosinophils % (Manual) 0, Basophils % (Manual) 0, Band Neutrophils 0, Platelet Estimate Adequate, Platelet Morphology Normal, Polychromasia 1+, Hypochromasia 1+, Anisocytosis 1+, Macrocytosis 1+, Sodium Level 137, Potassium Level 4.4, Chloride Level 97L, Carbon Dioxide Level 33H, Anion Gap 8, Blood Urea Nitrogen 27H, Creatinine 3.7H, Estimat Glomerular Filtration Rate , Glucose Level 81, Calcium Level 8.8, Phosphorus Level 5.4H, Magnesium Level 1.8, Total Bilirubin 1.3H, Direct Bilirubin 0.6H, Aspartate Amino Transf (AST/SGOT) 20, Alanine Aminotransferase (ALT/SGPT) < 6L, Alkaline Phosphatase 87, Total Protein 7.2, Albumin 1.9L, Globulin 5.3, Albumin/Globulin Ratio 0.4L Height (Feet): 5 Height (Inches): 3.00 Weight (Pounds): 379 General Appearance: no apparent distress Objective edema extrs COURTNEY LOPEZ Dec 13, 2016 11:00
--- NOTE | 2016-12-13 12:29 | GI Progress Note ---
Assessment/Plan Problems: (1) Positive occult stool blood test ICD Codes: R19.5 - Other fecal abnormalities SNOMED: 29548681, 567059374 (2) Morbid obesity ICD Codes: E66.01 - Morbid (severe) obesity due to excess calories SNOMED: 203726522, 81907043298130 (3) Anemia ICD Codes: D64.9 - Anemia, unspecified SNOMED: 451438759 (4) PEG (percutaneous endoscopic gastrostomy) adjustment/replacement/removal ICD Codes: Z43.1 - Encounter for attention to gastrostomy SNOMED: 418551818, 658659017 Status: unchanged Status Narrative 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 Dr. Noriega. Assessment/Plan s/p PEG GTF per dietary at goal fu pulmonary recs bowel regime ppi fu labs Subjective Subjective limited Objective Last 24 Hour Vital Signs Date Time Temp Pulse Resp B/P (MAP) Pulse Ox O2 Delivery O2 Flow Rate FiO2 12/13/16 10:44 87 18 50 12/13/16 09:11 96 18 50 12/13/16 08:00 97.7 81 18 102/57 98 Mechanical Ventilator 50 12/13/16 08:00 50 12/13/16 08:00 81 12/13/16 07:12 84 18 50 12/13/16 05:24 86 21 50 12/13/16 04:58 90 12/13/16 04:00 97.7 92 18 104/60 98 Mechanical Ventilator 50 12/13/16 04:00 50 12/13/16 03:26 87 22 50 12/13/16 01:29 80 20 50 12/13/16 00:00 92 12/13/16 00:00 99.0 98 18 134/35 100 Mechanical Ventilator 50 12/13/16 00:00 50 12/12/16 23:23 85 18 50 12/12/16 21:29 91 21 50 12/12/16 20:00 50 12/12/16 20:00 98.8 86 19 120/54 100 Mechanical Ventilator 50 12/12/16 20:00 86 12/12/16 19:43 85 18 50 12/12/16 17:35 80 20 100 Mechanical Ventilator 50 12/12/16 17:21 81 19 100 Mechanical Ventilator 50 12/12/16 17:21 50 12/12/16 17:03 75 18 50 12/12/16 16:14 97.5 76 18 99/65 100 Mechanical Ventilator 50 12/12/16 15:18 67 12/12/16 14:50 75 18 50 12/12/16 14:00 25 99 Mechanical Ventilator 50 12/12/16 14:00 50 12/12/16 13:56 76 20 100 Mechanical Ventilator 50 12/12/16 13:42 69 18 99 Mechanical Ventilator 100 12/12/16 13:42 100 12/12/16 12:42 79 20 50 Laboratory Tests Test 12/13/16 04:10 White Blood Count 7.8 K/UL (4.8-10.8) Red Blood Count 2.47 M/UL (4.20-5.40) L Hemoglobin 7.7 G/DL (12.0-16.0) L Hematocrit 25.0 % (37.0-47.0) L Mean Corpuscular Volume 101 FL (80-99) H Mean Corpuscular Hemoglobin 31.1 PG (27.0-31.0) H Mean Corpuscular Hemoglobin Concent 30.7 G/DL (32.0-36.0) L Red Cell Distribution Width 19.9 % (11.6-14.8) H Platelet Count 193 K/UL (150-450) Mean Platelet Volume 5.8 FL (6.5-10.1) L Neutrophils (%) (Auto) % (45.0-75.0) Lymphocytes (%) (Auto) % (20.0-45.0) Monocytes (%) (Auto) % (1.0-10.0) Eosinophils (%) (Auto) % (0.0-3.0) Basophils (%) (Auto) % (0.0-2.0) Differential Total Cells Counted 100 Neutrophils % (Manual) 75 % (45-75) Lymphocytes % (Manual) 12 % (20-45) L Monocytes % (Manual) 13 % (1-10) H Eosinophils % (Manual) 0 % (0-3) Basophils % (Manual) 0 % (0-2) Band Neutrophils 0 % (0-8) Platelet Estimate Adequate Platelet Morphology Normal Polychromasia 1+ Hypochromasia 1+ Anisocytosis 1+ Macrocytosis 1+ Sodium Level 137 MMOL/L (136-145) Potassium Level 4.4 MMOL/L (3.5-5.1) Chloride Level 97 MMOL/L (98-107) L Carbon Dioxide Level 33 MMOL/L (21-32) H Anion Gap 8 mmol/L (5-15) Blood Urea Nitrogen 27 mg/dL (7-18) H Creatinine 3.7 MG/DL (0.55-1.30) H Estimat Glomerular Filtration Rate mL/min (>60) Glucose Level 81 MG/DL (74-106) Calcium Level 8.8 MG/DL (8.5-10.1) Phosphorus Level 5.4 MG/DL (2.5-4.9) H Magnesium Level 1.8 MG/DL (1.8-2.4) Total Bilirubin 1.3 MG/DL (0.2-1.0) H Direct Bilirubin 0.6 MG/DL (0.0-0.3) H Aspartate Amino Transf (AST/SGOT) 20 U/L (15-37) Alanine Aminotransferase (ALT/SGPT) < 6 U/L (12-78) L Alkaline Phosphatase 87 U/L (46-116) Total Protein 7.2 G/DL (6.4-8.2) Albumin 1.9 G/DL (3.4-5.0) L Globulin 5.3 g/dL Albumin/Globulin Ratio 0.4 (1.0-2.7) L Height (Feet): 5 Height (Inches): 3.00 Weight (Pounds): 379 General Appearance: no apparent distress, alert, morbidly obese Cardiovascular: normal rate Respiratory/Chest: normal breath sounds Abdominal Exam: soft, GT site - c/d/i Kateryna Sherman N.PKarine Dec 13, 2016 12:29
--- NOTE | 2016-12-13 13:08 | Pulmonology Progress Note ---
Assessment/Plan Problems: (1) Chronic respiratory failure (2) Anasarca (3) ATN (acute tubular necrosis) (4) Anemia (5) Peripheral edema (6) Pickwickian syndrome (7) MINA (obstructive sleep apnea) (8) Morbid obesity Respiratory: monitor respiratory rate, adjust FIO2 Cardiac: start pressors Renal: F/U I&O Infectious Disease: check cultures Gastrointestinal: continue feedings/current rate, hold feedings Hematologic: monitor H/H Neurologic: PRN Ativan Affect: PRN ativan Notes Reviewed: marketing operations consultant, renal 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: social work case manager Subjective ROS Limited/Unobtainable: No Constitutional: Reports: no symptoms HEENT: Repors: no symptoms Respiratory: Reports: no symptoms Allergies: Coded Allergies: AMOXICILLIN (Verified Allergy, Mild, RASH, 09/30/16) PENICILLINS (Unverified Allergy, Unknown, 09/30/16) Objective Last 24 Hour Vital Signs Date Time Temp Pulse Resp B/P (MAP) Pulse Ox O2 Delivery O2 Flow Rate FiO2 12/13/16 12:47 85 19 50 12/13/16 12:00 97.9 82 18 106/60 98 Mechanical Ventilator 50 12/13/16 12:00 50 12/13/16 10:44 87 18 50 12/13/16 09:11 96 18 50 12/13/16 08:00 97.7 81 18 102/57 98 Mechanical Ventilator 50 12/13/16 08:00 50 12/13/16 08:00 81 12/13/16 07:12 84 18 50 12/13/16 05:24 86 21 50 12/13/16 04:58 90 12/13/16 04:00 97.7 92 18 104/60 98 Mechanical Ventilator 50 12/13/16 04:00 50 12/13/16 03:26 87 22 50 12/13/16 01:29 80 20 50 12/13/16 00:00 92 12/13/16 00:00 99.0 98 18 134/35 100 Mechanical Ventilator 50 12/13/16 00:00 50 12/12/16 23:23 85 18 50 12/12/16 21:29 91 21 50 12/12/16 20:00 50 12/12/16 20:00 98.8 86 19 120/54 100 Mechanical Ventilator 50 12/12/16 20:00 86 12/12/16 19:43 85 18 50 12/12/16 17:35 80 20 100 Mechanical Ventilator 50 12/12/16 17:21 81 19 100 Mechanical Ventilator 50 12/12/16 17:21 50 12/12/16 17:03 75 18 50 12/12/16 16:14 97.5 76 18 99/65 100 Mechanical Ventilator 50 12/12/16 15:18 67 12/12/16 14:50 75 18 50 12/12/16 14:00 25 99 Mechanical Ventilator 50 12/12/16 14:00 50 12/12/16 13:56 76 20 100 Mechanical Ventilator 50 12/12/16 13:42 69 18 99 Mechanical Ventilator 100 12/12/16 13:42 100 General Appearance: WD/WN HEENT: normocephalic, atraumatic Respiratory/Chest: chest wall non-tender, lungs clear, normal breath sounds Breasts: no masses Cardiovascular: normal peripheral pulses, normal rate Abdomen: normal bowel sounds, no organomegaly Genitourinary: normal external genitalia Extremities: no cyanosis Skin: no lesions, no ulcers Neurologic/Psychiatric: behavioral health case manager II-XII grossly normal, no motor/sensory deficits Lymphatic: no neck adenopathy Laboratory Tests 12/13/16 04:10: White Blood Count 7.8, Red Blood Count 2.47L, Hemoglobin 7.7L, Hematocrit 25.0L , Mean Corpuscular Volume 101H, Mean Corpuscular Hemoglobin 31.1H, Mean Corpuscular Hemoglobin Concent 30.7L, Red Cell Distribution Width 19.9H, Platelet Count 193, Mean Platelet Volume 5.8L, Neutrophils (%) (Auto) , Lymphocytes (%) (Auto) , Monocytes (%) (Auto) , Eosinophils (%) (Auto) , Basophils (%) (Auto) , Differential Total Cells Counted 100, Neutrophils % ( Manual) 75, Lymphocytes % (Manual) 12L, Monocytes % (Manual) 13H, Eosinophils % (Manual) 0, Basophils % (Manual) 0, Band Neutrophils 0, Platelet Estimate Adequate, Platelet Morphology Normal, Polychromasia 1+, Hypochromasia 1+, Anisocytosis 1+, Macrocytosis 1+, Sodium Level 137, Potassium Level 4.4, Chloride Level 97L, Carbon Dioxide Level 33H, Anion Gap 8, Blood Urea Nitrogen 27H, Creatinine 3.7H, Estimat Glomerular Filtration Rate , Glucose Level 81, Calcium Level 8.8, Phosphorus Level 5.4H, Magnesium Level 1.8, Total Bilirubin 1.3H, Direct Bilirubin 0.6H, Aspartate Amino Transf (AST/SGOT) 20, Alanine Aminotransferase (ALT/SGPT) < 6L, Alkaline Phosphatase 87, Total Protein 7.2, Albumin 1.9L, Globulin 5.3, Albumin/Globulin Ratio 0.4L Current Medications Medications (Trade) Dose Ordered Sig/Kalyn Route PRN Reason Start Time Stop Time Status Last Admin Dose Admin Albuterol/ Ipratropium (Albuterol/ Ipratropium) 3 ml Q4H PRN HHN Shortness of Breath 12/12/16 10:30 12/17/16 10:29 12/12/16 17:21 Allopurinol (Zyloprim) 200 mg DAILY ORAL 12/04/16 09:00 01/02/17 08:59 12/13/16 09:52 Cefepime HCl 500 mg/Dextrose 55 ml @ 110 mls/hr DAILY@1600 IVPB 12/12/16 16:00 12/19/16 15:59 12/12/16 17:01 Chlorhexidine Gluconate (Marni-Hex 2%) 1 applic Q24H TOPIC 12/03/16 20:00 12/27/16 19:59 12/12/16 20:46 Diphenhydramine HCl (Benadryl) 25 mg Q6H PRN IVP Itching 12/03/16 15:00 12/19/16 14:59 Docusate Sodium (Colace) 100 mg TWICE A DAY GT 12/04/16 09:00 01/03/17 08:59 12/13/16 09:51 Epoetin Santos (Procrit (for non ESRD use)) 10,000 units TUE-TUE-TUE SUBQ 12/03/16 21:00 12/17/16 20:59 12/10/16 21:02 Gabapentin (Neurontin) 600 mg BID ORAL 12/03/16 18:00 12/14/16 08:59 12/13/16 09:51 Midodrine (Pro-Amatine) 10 mg EVERY 8 HOURS GT 12/12/16 14:00 01/11/17 13:59 12/13/16 06:00 Phosphorus (Phospha 250 Neutral) 500 mg THREE TIMES A DAY GT 12/07/16 18:00 01/06/17 17:59 12/13/16 09:52 Polyethylene Glycol (Miralax) 17 gm BEDTIME ORAL 12/12/16 21:30 01/11/17 21:29 12/12/16 21:30 Ranitidine HCl (Zantac) 150 mg TWICE A DAY GT 12/05/16 18:00 01/04/17 17:59 12/13/16 09:51 ARASH MIRANDA Dec 13, 2016 13:08
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
--- NOTE | 2016-12-13 15:04 | Diagnostic Imaging Report ---
Indication: Dyspnea Comparison: 12/04/69 A single view chest radiograph was obtained. Findings: Interstitial edema and vascular prominence with cardiomegaly demonstrated. There is a right jugular catheter in good position. Tracheostomy noted. Impression: Pulmonary edema
[2016-12-13] MEDS: Cefepime 500mg in D5W 55ml IVPB SCH (16:14)
--- NOTE | 2016-12-13 18:35 | Cardiology Progress Note ---
Assessment/Plan Assessment/Plan 1. Permanent atrial fibrillation. 2. Chronic respiratory failure, on a mechanical ventilator. 3. Cor pulmonale. 4. Pulmonary hypertension. 5. Acute renal failure, now on dialysis. 6. Anemia. 7. Significant edema. 8. Hypoalbuminemia. 9. stool ob + bp ok today on vent is gettign dialysis now remain in afib tele reviewed stool now ob + no anticoagulation for now await transfer to [facility] facility with vent capacity anemic agian Subjective ROS Limited/Unobtainable: Yes Subjective on the vent awake Objective Last 24 Hour Vital Signs Date Time Temp Pulse Resp B/P (MAP) Pulse Ox O2 Delivery O2 Flow Rate FiO2 12/13/16 17:14 85 18 50 12/13/16 15:58 50 12/13/16 15:57 87 12/13/16 15:56 98.1 93 18 123/63 98 Mechanical Ventilator 50 12/13/16 14:45 87 18 50 12/13/16 12:47 85 19 50 12/13/16 12:00 97.9 82 18 106/60 98 Mechanical Ventilator 50 12/13/16 12:00 71 12/13/16 12:00 50 12/13/16 10:44 87 18 50 12/13/16 09:11 96 18 50 12/13/16 08:00 97.7 81 18 102/57 98 Mechanical Ventilator 50 12/13/16 08:00 50 12/13/16 08:00 81 12/13/16 07:12 84 18 50 12/13/16 05:24 86 21 50 12/13/16 04:58 90 12/13/16 04:00 97.7 92 18 104/60 98 Mechanical Ventilator 50 12/13/16 04:00 50 12/13/16 03:26 87 22 50 12/13/16 01:29 80 20 50 12/13/16 00:00 92 12/13/16 00:00 99.0 98 18 134/35 100 Mechanical Ventilator 50 12/13/16 00:00 50 12/12/16 23:23 85 18 50 12/12/16 21:29 91 21 50 12/12/16 20:00 50 12/12/16 20:00 98.8 86 19 120/54 100 Mechanical Ventilator 50 12/12/16 20:00 86 12/12/16 19:43 85 18 50 General Appearance: lethargic, on vent, patient on isolation Intake and Output 12/13/16 12/14/16 19:00 07:00 Intake Total 480 ml Balance 480 ml Free Water 100 ml Tube Feeding 30 ml Blood Product 350 ml # Bowel Movements 1 Laboratory Tests Test 12/13/16 04:10 White Blood Count 7.8 K/UL (4.8-10.8) Red Blood Count 2.47 M/UL (4.20-5.40) L Hemoglobin 7.7 G/DL (12.0-16.0) L Hematocrit 25.0 % (37.0-47.0) L Mean Corpuscular Volume 101 FL (80-99) H Mean Corpuscular Hemoglobin 31.1 PG (27.0-31.0) H Mean Corpuscular Hemoglobin Concent 30.7 G/DL (32.0-36.0) L Red Cell Distribution Width 19.9 % (11.6-14.8) H Platelet Count 193 K/UL (150-450) Mean Platelet Volume 5.8 FL (6.5-10.1) L Neutrophils (%) (Auto) % (45.0-75.0) Lymphocytes (%) (Auto) % (20.0-45.0) Monocytes (%) (Auto) % (1.0-10.0) Eosinophils (%) (Auto) % (0.0-3.0) Basophils (%) (Auto) % (0.0-2.0) Differential Total Cells Counted 100 Neutrophils % (Manual) 75 % (45-75) Lymphocytes % (Manual) 12 % (20-45) L Monocytes % (Manual) 13 % (1-10) H Eosinophils % (Manual) 0 % (0-3) Basophils % (Manual) 0 % (0-2) Band Neutrophils 0 % (0-8) Platelet Estimate Adequate Platelet Morphology Normal Polychromasia 1+ Hypochromasia 1+ Anisocytosis 1+ Macrocytosis 1+ Sodium Level 137 MMOL/L (136-145) Potassium Level 4.4 MMOL/L (3.5-5.1) Chloride Level 97 MMOL/L (98-107) L Carbon Dioxide Level 33 MMOL/L (21-32) H Anion Gap 8 mmol/L (5-15) Blood Urea Nitrogen 27 mg/dL (7-18) H Creatinine 3.7 MG/DL (0.55-1.30) H Estimat Glomerular Filtration Rate mL/min (>60) Glucose Level 81 MG/DL (74-106) Calcium Level 8.8 MG/DL (8.5-10.1) Phosphorus Level 5.4 MG/DL (2.5-4.9) H Magnesium Level 1.8 MG/DL (1.8-2.4) Total Bilirubin 1.3 MG/DL (0.2-1.0) H Direct Bilirubin 0.6 MG/DL (0.0-0.3) H Aspartate Amino Transf (AST/SGOT) 20 U/L (15-37) Alanine Aminotransferase (ALT/SGPT) < 6 U/L (12-78) L Alkaline Phosphatase 87 U/L (46-116) Total Protein 7.2 G/DL (6.4-8.2) Albumin 1.9 G/DL (3.4-5.0) L Globulin 5.3 g/dL Albumin/Globulin Ratio 0.4 (1.0-2.7) L BRIANA TELLES Dec 13, 2016 18:35
--- NOTE | 2016-12-13 20:18 | General Progress Note ---
Assessment/Plan Assessment/Plan This is a 76-year-old, morbidly obese female, admitted with anasarca and cellulitis of the lower leg. The patient was admitted to the directr observation unit on the monitor with the following medical problems. now transfered to icu as of 11-14-16, co of pruritis 1. Anasarca. She appears to be markedly swollen. She will need diuresis. Place the patient on Lasix 20 mg intravenous for now q.12 hours. Cardiology and Pulmonary on the case. We will follow orders. Check laboratory studies daily. Lasix drip was discontinued in am, HD started 2. Chronic hypercapnic respiratory failure. Continue with vent support per Pulmonary. will discuss with pulmonary regarding trach issues 3 anemia. s./p transfusion of PRBC Continue monitoring CBC daily. patient to start Procrit per nephrology 4. Pulmonary hypertension. hold Eliquis as patient is ob positive 5. Chronic kidney disease. On HD for now per nephrology. 6. DVT prophylaxis. scds 7. nutrition: patient didn't tolerate NGT placement, patient is now s/p PEG placement, tolerating tube feeding 8. Alkalosis: resolved 9. Generalized anxiety: Ativan prn, counselled for 15min 10. constipation: prn enema, continue with Colace and MiraLAX had revision of trach on 11-23-16 11. Anemia: finished transfusion of one unit of PRBC 12/13/16 12. abdominal Pain: probable constipation, will order Miralax and colace fu serial abdominal exams, am labs Benadryl 25 mg iv q 6 prn itching tolerating tube feeding continue HD per nephrology trach revision done by Dr. Powell discussed with nursing staff HD per nephrology continue current care pt ot patient requesting evaluation for transfer to [facility] once stable for transfer, will discuss with case manager specialist am labs, will order swallow eval again later in the week Subjective Date patient seen: Dec 13, 2016 Allergies: Coded Allergies: AMOXICILLIN (Verified Allergy, Mild, RASH, 09/30/16) PENICILLINS (Unverified Allergy, Unknown, 09/30/16) All Systems: reviewed and negative except above Subjective patient undergoing HD tonight, had transfusion of one unit of PRBC for anemia Objective Last 24 Hour Vital Signs Date Time Temp Pulse Resp B/P (MAP) Pulse Ox O2 Delivery O2 Flow Rate FiO2 12/13/16 19:33 84 18 50 12/13/16 19:00 Mechanical Ventilator 50 12/13/16 17:14 85 18 50 12/13/16 15:58 50 12/13/16 15:57 87 12/13/16 15:56 98.1 93 18 123/63 98 Mechanical Ventilator 50 12/13/16 14:45 87 18 50 12/13/16 12:47 85 19 50 12/13/16 12:00 97.9 82 18 106/60 98 Mechanical Ventilator 50 12/13/16 12:00 71 12/13/16 12:00 50 12/13/16 10:44 87 18 50 12/13/16 09:11 96 18 50 12/13/16 08:00 97.7 81 18 102/57 98 Mechanical Ventilator 50 12/13/16 08:00 50 12/13/16 08:00 81 12/13/16 07:12 84 18 50 12/13/16 05:24 86 21 50 12/13/16 04:58 90 12/13/16 04:00 97.7 92 18 104/60 98 Mechanical Ventilator 50 12/13/16 04:00 50 12/13/16 03:26 87 22 50 12/13/16 01:29 80 20 50 12/13/16 00:00 92 12/13/16 00:00 99.0 98 18 134/35 100 Mechanical Ventilator 50 12/13/16 00:00 50 12/12/16 23:23 85 18 50 12/12/16 21:29 91 21 50 Intake and Output 12/13/16 12/14/16 19:00 07:00 Intake Total 480 ml Balance 480 ml Free Water 100 ml Tube Feeding 30 ml Blood Product 350 ml # Bowel Movements 1 Laboratory Tests 12/13/16 04:10: White Blood Count 7.8, Red Blood Count 2.47L, Hemoglobin 7.7L, Hematocrit 25.0L , Mean Corpuscular Volume 101H, Mean Corpuscular Hemoglobin 31.1H, Mean Corpuscular Hemoglobin Concent 30.7L, Red Cell Distribution Width 19.9H, Platelet Count 193, Mean Platelet Volume 5.8L, Neutrophils (%) (Auto) , Lymphocytes (%) (Auto) , Monocytes (%) (Auto) , Eosinophils (%) (Auto) , Basophils (%) (Auto) , Differential Total Cells Counted 100, Neutrophils % ( Manual) 75, Lymphocytes % (Manual) 12L, Monocytes % (Manual) 13H, Eosinophils % (Manual) 0, Basophils % (Manual) 0, Band Neutrophils 0, Platelet Estimate Adequate, Platelet Morphology Normal, Polychromasia 1+, Hypochromasia 1+, Anisocytosis 1+, Macrocytosis 1+, Sodium Level 137, Potassium Level 4.4, Chloride Level 97L, Carbon Dioxide Level 33H, Anion Gap 8, Blood Urea Nitrogen 27H, Creatinine 3.7H, Estimat Glomerular Filtration Rate , Glucose Level 81, Calcium Level 8.8, Phosphorus Level 5.4H, Magnesium Level 1.8, Total Bilirubin 1.3H, Direct Bilirubin 0.6H, Aspartate Amino Transf (AST/SGOT) 20, Alanine Aminotransferase (ALT/SGPT) < 6L, Alkaline Phosphatase 87, Total Protein 7.2, Albumin 1.9L, Globulin 5.3, Albumin/Globulin Ratio 0.4L Height (Feet): 5 Height (Inches): 3.00 Weight (Pounds): 379 General Appearance: no apparent distress, alert, morbidly obese EENT: PERRL/EOMI, pharynx normal Neck: non-tender, supple Cardiovascular: normal rate, regular rhythm, no gallop/murmur, no JVD Respiratory/Chest: decreased breath sounds Abdomen: non tender, soft, no mass Extremities: swelling Edema: 3+ Arm (L), 3+ Arm (R), 3+ Leg (L), 3+ Leg (R), 3+ Pedal (L), 3+ Pedal ( R), 3+ Generalized Edema: severe edema Neurologic: math coach II-XII grossly normal, oriented x 3, responsive Skin: rash Lymphatic: normal anterior cervical (L), normal anterior cervical (R), normal posterior cervical (L), normal posterior cervical (R), normal submandibular (L) , normal submandibular (R), normal supraclavicular (L), normal supraclavicular ( R), normal axillary (L), normal axillary (R), normal inguinal (L), normal inguinal (R), normal other Manny Nolan MD Dec 13, 2016 20:18
[2016-12-13] MEDS: Dyna-Hex 2% Top Sol 2oz TOPIC SCH (21:00)
[2016-12-13] MEDS: Epogen (for non ESRD use) SUBQ SCH (21:01)
[2016-12-13] MEDS: Miralax 17gm pkt ORAL SCH (21:01)
--- NOTE | 2016-12-13 22:16 | General Progress Note ---
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 INR improving. Continue to monitor #. Anemia secondary to chronic disease. Continue to closely monitor. Work up reviewed --> s/p multiple transfusions. watch counts, transfuse if hgb is below 8 # Positive occult blood. r/o gi bleed. gi following #. Anemia of kidney disease. Nephrology service following #. PEG tube placement #. Chronic ventilator dependent #. Permanent atrial fibrillation. #. Cellulitis and chronic lymphedema of the bilateral lower extremities. #. Congestive heart failure. Subjective ROS Limited/Unobtainable: Yes Allergies: Coded Allergies: AMOXICILLIN (Verified Allergy, Mild, RASH, 09/30/16) PENICILLINS (Unverified Allergy, Unknown, 09/30/16) Subjective on ventilator, NAD, received 1 unit prbc Objective Last 24 Hour Vital Signs Date Time Temp Pulse Resp B/P (MAP) Pulse Ox O2 Delivery O2 Flow Rate FiO2 12/13/16 21:05 87 19 50 12/13/16 20:00 99.3 83 18 113/60 98 Mechanical Ventilator 50 12/13/16 20:00 50 12/13/16 20:00 84 12/13/16 19:33 84 18 50 12/13/16 19:00 Mechanical Ventilator 50 12/13/16 17:14 85 18 50 12/13/16 15:58 50 12/13/16 15:57 87 12/13/16 15:56 98.1 93 18 123/63 98 Mechanical Ventilator 50 12/13/16 14:45 87 18 50 12/13/16 12:47 85 19 50 12/13/16 12:00 97.9 82 18 106/60 98 Mechanical Ventilator 50 12/13/16 12:00 71 12/13/16 12:00 50 12/13/16 10:44 87 18 50 12/13/16 09:11 96 18 50 12/13/16 08:00 97.7 81 18 102/57 98 Mechanical Ventilator 50 12/13/16 08:00 50 12/13/16 08:00 81 12/13/16 07:12 84 18 50 12/13/16 05:24 86 21 50 12/13/16 04:58 90 12/13/16 04:00 97.7 92 18 104/60 98 Mechanical Ventilator 50 12/13/16 04:00 50 12/13/16 03:26 87 22 50 12/13/16 01:29 80 20 50 12/13/16 00:00 92 12/13/16 00:00 99.0 98 18 134/35 100 Mechanical Ventilator 50 12/13/16 00:00 50 12/12/16 23:23 85 18 50 Intake and Output 12/13/16 12/14/16 19:00 07:00 Intake Total 480 ml Balance 480 ml Free Water 100 ml Tube Feeding 30 ml Blood Product 350 ml # Bowel Movements 1 Laboratory Tests 12/13/16 04:10: White Blood Count 7.8, Red Blood Count 2.47L, Hemoglobin 7.7L, Hematocrit 25.0L , Mean Corpuscular Volume 101H, Mean Corpuscular Hemoglobin 31.1H, Mean Corpuscular Hemoglobin Concent 30.7L, Red Cell Distribution Width 19.9H, Platelet Count 193, Mean Platelet Volume 5.8L, Neutrophils (%) (Auto) , Lymphocytes (%) (Auto) , Monocytes (%) (Auto) , Eosinophils (%) (Auto) , Basophils (%) (Auto) , Differential Total Cells Counted 100, Neutrophils % ( Manual) 75, Lymphocytes % (Manual) 12L, Monocytes % (Manual) 13H, Eosinophils % (Manual) 0, Basophils % (Manual) 0, Band Neutrophils 0, Platelet Estimate Adequate, Platelet Morphology Normal, Polychromasia 1+, Hypochromasia 1+, Anisocytosis 1+, Macrocytosis 1+, Sodium Level 137, Potassium Level 4.4, Chloride Level 97L, Carbon Dioxide Level 33H, Anion Gap 8, Blood Urea Nitrogen 27H, Creatinine 3.7H, Estimat Glomerular Filtration Rate , Glucose Level 81, Calcium Level 8.8, Phosphorus Level 5.4H, Magnesium Level 1.8, Total Bilirubin 1.3H, Direct Bilirubin 0.6H, Aspartate Amino Transf (AST/SGOT) 20, Alanine Aminotransferase (ALT/SGPT) < 6L, Alkaline Phosphatase 87, Total Protein 7.2, Albumin 1.9L, Globulin 5.3, Albumin/Globulin Ratio 0.4L Height (Feet): 5 Height (Inches): 3.00 Weight (Pounds): 379 General Appearance: no apparent distress EENT: normal ENT inspection Neck: normal alignment Respiratory/Chest: chest wall non-tender Skin: warm/dry Kleynberg,Serafin L. Dec 13, 2016 22:16
[2016-12-14 04:00] VITALS: BP 115/59
[2016-12-14] MEDS: Midodrine 10mg tab GT SCH ×3 (05:43→21:33)
[2016-12-14 06:06] LABS: MEAN CORPUSCULAR HEMOGLOBIN 31.1 PG (27.0-31.0); MEAN CORPUSCULAR HGB CONC 31.1 G/DL (32.0-36.0); MEAN CORPUSCULAR VOLUME 100 FL (80-99); MEAN PLATELET VOLUME 5.6 FL (6.5-10.1); PLATELET COUNT 203 K/UL (150-450); RED BLOOD COUNT 2.46 M/UL (4.20-5.40); RED CELL DISTRIBUTION WIDTH 21.1 % (11.6-14.8); WHITE BLOOD COUNT 7.2 K/UL (4.8-10.8)
[2016-12-14 06:10] LABS: ALANINE AMINOTRANSFERASE < 6 U/L (12-78); ALBUMIN/GLOBULIN RATIO 0.4 (1.0-2.7); ANION GAP 10 mmol/L (5-15); ASPARTATE AMINO TRANSFERASE 20 U/L (15-37); CALCIUM 8.4 MG/DL (8.5-10.1); CARBON DIOXIDE 33 MMOL/L (21-32); CHLORIDE 100 MMOL/L (98-107); CREATININE 2.8 MG/DL (0.55-1.30); POTASSIUM 3.4 MMOL/L (3.5-5.1); SODIUM 143 MMOL/L (136-145); TOTAL PROTEIN 7.2 G/DL (6.4-8.2)
[2016-12-14 06:26] LABS: BILIRUBIN,DIRECT 0.7 MG/DL (0.0-0.3)
[2016-12-14 08:00] VITALS: BP 127/68
--- NOTE | 2016-12-14 08:31 | Pulmonology Progress Note ---
Assessment/Plan Problems: (1) Chronic respiratory failure (2) Anasarca (3) ATN (acute tubular necrosis) (4) Anemia (5) Peripheral edema (6) Pickwickian syndrome (7) MINA (obstructive sleep apnea) (8) Morbid obesity Assessment/Plan: got one unit or prbc yesterday, hem is lower today Respiratory: monitor respiratory rate Cardiac: start pressors, stop pressors Renal: F/U I&O, keep IV fluid, check electrolytes - kcl 40 gutbe time one today Infectious Disease: check cultures, continue antibiotics Gastrointestinal: hold feedings Endocrine: monitor blood sugar, check HgA1C, continue sliding scale insulin Hematologic: monitor H/H, transfuse if hgb<8.5 Neurologic: PRN Ativan, PRN Morphine, keep patient comfortable Notes Reviewed: cardio 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: nurses, consultants, counseling case manager Subjective ROS Limited/Unobtainable: No Constitutional: Reports: no symptoms HEENT: Repors: no symptoms Allergies: Coded Allergies: AMOXICILLIN (Verified Allergy, Mild, RASH, 09/30/16) PENICILLINS (Unverified Allergy, Unknown, 09/30/16) Objective Last 24 Hour Vital Signs Date Time Temp Pulse Resp B/P (MAP) Pulse Ox O2 Delivery O2 Flow Rate FiO2 12/14/16 07:00 68 18 50 12/14/16 05:17 94 19 50 12/14/16 04:20 78 12/14/16 04:00 50 12/14/16 04:00 99.3 86 18 115/59 98 Mechanical Ventilator 50 12/14/16 03:08 87 18 50 12/14/16 00:52 88 19 50 12/14/16 00:00 Mechanical Ventilator 50 12/14/16 00:00 50 12/14/16 00:00 93 12/13/16 23:57 99.7 75 20 96/58 Mechanical Ventilator 50.0 12/13/16 23:22 76 21 50 12/13/16 21:05 87 19 50 12/13/16 20:00 99.3 83 18 113/60 98 Mechanical Ventilator 50 12/13/16 20:00 50 12/13/16 20:00 84 12/13/16 19:33 84 18 50 12/13/16 19:00 Mechanical Ventilator 50 12/13/16 17:14 85 18 50 12/13/16 15:58 50 12/13/16 15:57 87 12/13/16 15:56 98.1 93 18 123/63 98 Mechanical Ventilator 50 12/13/16 14:45 87 18 50 12/13/16 12:47 85 19 50 12/13/16 12:00 97.9 82 18 106/60 98 Mechanical Ventilator 50 12/13/16 12:00 71 12/13/16 12:00 50 12/13/16 10:44 87 18 50 12/13/16 09:11 96 18 50 HEENT: normocephalic, atraumatic Respiratory/Chest: chest wall non-tender, lungs clear Breasts: no masses Cardiovascular: normal peripheral pulses, normal rate Abdomen: normal bowel sounds, soft, non tender Genitourinary: normal external genitalia Extremities: no clubbing Skin: no lesions Neurologic/Psychiatric: manager utilities II-XII grossly normal, normal mood/affect Lymphatic: no neck adenopathy Laboratory Tests 12/14/16 03:40: White Blood Count 7.2, Red Blood Count 2.46L, Hemoglobin 7.6L, Hematocrit 24.5L , Mean Corpuscular Volume 100H, Mean Corpuscular Hemoglobin 31.1H, Mean Corpuscular Hemoglobin Concent 31.1L, Red Cell Distribution Width 21.1H, Platelet Count 203, Mean Platelet Volume 5.6L, Neutrophils (%) (Auto) , Lymphocytes (%) (Auto) , Monocytes (%) (Auto) , Eosinophils (%) (Auto) , Basophils (%) (Auto) , Sodium Level 143, Potassium Level 3.4L, Chloride Level 100, Carbon Dioxide Level 33H, Anion Gap 10, Blood Urea Nitrogen 18, Creatinine 2.8H, Estimat Glomerular Filtration Rate , Glucose Level 79, Calcium Level 8.4L , Total Bilirubin 1.7H, Direct Bilirubin 0.7H, Aspartate Amino Transf (AST/SGOT ) 20, Alanine Aminotransferase (ALT/SGPT) < 6L, Alkaline Phosphatase 80, Total Protein 7.2, Albumin 1.9L, Globulin 5.3, Albumin/Globulin Ratio 0.4L Current Medications Medications (Trade) Dose Ordered Sig/Kalyn Route PRN Reason Start Time Stop Time Status Last Admin Dose Admin Albuterol/ Ipratropium (Albuterol/ Ipratropium) 3 ml Q4H PRN HHN Shortness of Breath 12/12/16 10:30 12/17/16 10:29 12/12/16 17:21 Allopurinol (Zyloprim) 200 mg DAILY ORAL 12/04/16 09:00 01/02/17 08:59 12/13/16 09:52 Cefepime HCl 500 mg/Dextrose 55 ml @ 110 mls/hr DAILY@1600 IVPB 12/12/16 16:00 12/19/16 15:59 12/13/16 16:14 Chlorhexidine Gluconate (Marni-Hex 2%) 1 applic Q24H TOPIC 12/03/16 20:00 12/27/16 19:59 12/13/16 21:00 Diphenhydramine HCl (Benadryl) 25 mg Q6H PRN IVP Itching 12/03/16 15:00 12/19/16 14:59 Docusate Sodium (Colace) 100 mg TWICE A DAY GT 12/04/16 09:00 01/03/17 08:59 12/13/16 18:17 Epoetin Santos (Procrit (for non ESRD use)) 10,000 units TUE-TUE-TUE SUBQ 12/03/16 21:00 12/17/16 20:59 12/13/16 21:01 Gabapentin (Neurontin) 600 mg BID ORAL 12/03/16 18:00 12/14/16 08:59 12/13/16 18:17 Midodrine (Pro-Amatine) 10 mg EVERY 8 HOURS GT 12/12/16 14:00 01/11/17 13:59 12/13/16 22:57 Phosphorus (Phospha 250 Neutral) 500 mg THREE TIMES A DAY GT 12/07/16 18:00 01/06/17 17:59 12/13/16 18:17 Polyethylene Glycol (Miralax) 17 gm BEDTIME ORAL 12/12/16 21:30 01/11/17 21:29 12/13/16 21:01 Ranitidine HCl (Zantac) 150 mg TWICE A DAY GT 12/05/16 18:00 01/04/17 17:59 12/13/16 18:17 ARASH MIRANDA Dec 14, 2016 08:31
[2016-12-14] MEDS: Allopurinol 100mg Tab ORAL SCH (08:50)
[2016-12-14] MEDS: Phospha 250 Neutral tab GT SCH ×2 (08:50→13:00)
[2016-12-14] MEDS: Docusate 100mg/10ml Liq GT SCH ×2 (08:50→17:14)
[2016-12-14 12:00] VITALS: BP 112/61
--- NOTE | 2016-12-14 12:43 | GI Progress Note ---
Assessment/Plan Problems: (1) Positive occult stool blood test ICD Codes: R19.5 - Other fecal abnormalities SNOMED: 12131990, 897243054 (2) Morbid obesity ICD Codes: E66.01 - Morbid (severe) obesity due to excess calories SNOMED: 805358626, 68804872911481 (3) Anemia ICD Codes: D64.9 - Anemia, unspecified SNOMED: 419100731 (4) PEG (percutaneous endoscopic gastrostomy) adjustment/replacement/removal ICD Codes: Z43.1 - Encounter for attention to gastrostomy SNOMED: 793468235, 602569897 Status: unchanged Status Narrative 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 Dr. Noriega. Assessment/Plan s/p PEG GTF per dietary at goal fu pulmonary recs bowel regime monitor H&H, prn transfusions ppi fu labs Subjective Subjective limited Objective Last 24 Hour Vital Signs Date Time Temp Pulse Resp B/P (MAP) Pulse Ox O2 Delivery O2 Flow Rate FiO2 12/14/16 12:02 72 12/14/16 12:00 50 12/14/16 12:00 97.9 68 18 112/61 98 Mechanical Ventilator 50 12/14/16 11:00 66 18 50 12/14/16 08:42 71 19 50 12/14/16 08:00 50 12/14/16 08:00 97.7 75 18 127/68 100 Mechanical Ventilator 50 12/14/16 07:00 68 18 50 12/14/16 05:17 94 19 50 12/14/16 04:20 78 12/14/16 04:00 50 12/14/16 04:00 99.3 86 18 115/59 98 Mechanical Ventilator 50 12/14/16 03:08 87 18 50 12/14/16 00:52 88 19 50 12/14/16 00:00 Mechanical Ventilator 50 12/14/16 00:00 50 12/14/16 00:00 93 12/13/16 23:57 99.7 75 20 96/58 Mechanical Ventilator 50.0 12/13/16 23:22 76 21 50 12/13/16 21:05 87 19 50 12/13/16 20:00 99.3 83 18 113/60 98 Mechanical Ventilator 50 12/13/16 20:00 50 12/13/16 20:00 84 12/13/16 19:33 84 18 50 12/13/16 19:00 Mechanical Ventilator 50 12/13/16 17:14 85 18 50 12/13/16 15:58 50 12/13/16 15:57 87 12/13/16 15:56 98.1 93 18 123/63 98 Mechanical Ventilator 50 12/13/16 14:45 87 18 50 12/13/16 12:47 85 19 50 Laboratory Tests Test 12/14/16 03:40 White Blood Count 7.2 K/UL (4.8-10.8) Red Blood Count 2.46 M/UL (4.20-5.40) L Hemoglobin 7.6 G/DL (12.0-16.0) L Hematocrit 24.5 % (37.0-47.0) L Mean Corpuscular Volume 100 FL (80-99) H Mean Corpuscular Hemoglobin 31.1 PG (27.0-31.0) H Mean Corpuscular Hemoglobin Concent 31.1 G/DL (32.0-36.0) L Red Cell Distribution Width 21.1 % (11.6-14.8) H Platelet Count 203 K/UL (150-450) Mean Platelet Volume 5.6 FL (6.5-10.1) L Neutrophils (%) (Auto) % (45.0-75.0) Lymphocytes (%) (Auto) % (20.0-45.0) Monocytes (%) (Auto) % (1.0-10.0) Eosinophils (%) (Auto) % (0.0-3.0) Basophils (%) (Auto) % (0.0-2.0) Sodium Level 143 MMOL/L (136-145) Potassium Level 3.4 MMOL/L (3.5-5.1) L Chloride Level 100 MMOL/L (98-107) Carbon Dioxide Level 33 MMOL/L (21-32) H Anion Gap 10 mmol/L (5-15) Blood Urea Nitrogen 18 mg/dL (7-18) Creatinine 2.8 MG/DL (0.55-1.30) H Estimat Glomerular Filtration Rate mL/min (>60) Glucose Level 79 MG/DL (74-106) Calcium Level 8.4 MG/DL (8.5-10.1) L Total Bilirubin 1.7 MG/DL (0.2-1.0) H Direct Bilirubin 0.7 MG/DL (0.0-0.3) H Aspartate Amino Transf (AST/SGOT) 20 U/L (15-37) Alanine Aminotransferase (ALT/SGPT) < 6 U/L (12-78) L Alkaline Phosphatase 80 U/L (46-116) Total Protein 7.2 G/DL (6.4-8.2) Albumin 1.9 G/DL (3.4-5.0) L Globulin 5.3 g/dL Albumin/Globulin Ratio 0.4 (1.0-2.7) L Height (Feet): 5 Height (Inches): 3.00 Weight (Pounds): 380 General Appearance: alert Cardiovascular: normal rate, other Respiratory/Chest: other - mech vent Abdominal Exam: GT site - c/d/i Kateryna Sherman N.P. Dec 14, 2016 12:43
--- NOTE | 2016-12-14 14:17 | Nephrology Progress Note ---
Assessment/Plan Problem List: (1) Renal failure Assessment: CKD + ACUTE (2) Acute and chronic respiratory failure (3) CHF (congestive heart failure) (4) Morbid obesity (5) Atrial fibrillation Assessment Stable from renal stand CKD- and acute renal failure - Acute respiratory failure s/p Trach Obese COPD , CHF, Diastolic MINA UTI Anemia GI Bleed, GI bleeding At Fib Pulm HTN h/o Low B12 Plan Plan: Now has PEG- HD 12/13 K supplement as needed on EPOGEN 24 H urine collection in process: CrCl 6 Monitor renal parameters- optimize cardiac and pulm status pulmonary support- transfuse as needed ? DC planning post PEG, placement is complicated Subjective ROS Limited/Unobtainable: No Constitutional: Reports: malaise Objective Objective Last 24 Hour Vital Signs Date Time Temp Pulse Resp B/P (MAP) Pulse Ox O2 Delivery O2 Flow Rate FiO2 12/14/16 13:00 72 18 50 12/14/16 12:02 72 12/14/16 12:00 50 12/14/16 12:00 97.9 68 18 112/61 98 Mechanical Ventilator 50 12/14/16 11:00 66 18 50 12/14/16 08:42 71 19 50 12/14/16 08:00 50 12/14/16 08:00 97.7 75 18 127/68 100 Mechanical Ventilator 50 12/14/16 07:00 68 18 50 12/14/16 05:17 94 19 50 12/14/16 04:20 78 12/14/16 04:00 50 12/14/16 04:00 99.3 86 18 115/59 98 Mechanical Ventilator 50 12/14/16 03:08 87 18 50 12/14/16 00:52 88 19 50 12/14/16 00:00 Mechanical Ventilator 50 12/14/16 00:00 50 12/14/16 00:00 93 12/13/16 23:57 99.7 75 20 96/58 Mechanical Ventilator 50.0 12/13/16 23:22 76 21 50 12/13/16 21:05 87 19 50 12/13/16 20:00 99.3 83 18 113/60 98 Mechanical Ventilator 50 12/13/16 20:00 50 12/13/16 20:00 84 12/13/16 19:33 84 18 50 12/13/16 19:00 Mechanical Ventilator 50 12/13/16 17:14 85 18 50 12/13/16 15:58 50 12/13/16 15:57 87 12/13/16 15:56 98.1 93 18 123/63 98 Mechanical Ventilator 50 12/13/16 14:45 87 18 50 Laboratory Tests 12/14/16 03:40: White Blood Count 7.2, Red Blood Count 2.46L, Hemoglobin 7.6L, Hematocrit 24.5L , Mean Corpuscular Volume 100H, Mean Corpuscular Hemoglobin 31.1H, Mean Corpuscular Hemoglobin Concent 31.1L, Red Cell Distribution Width 21.1H, Platelet Count 203, Mean Platelet Volume 5.6L, Neutrophils (%) (Auto) , Lymphocytes (%) (Auto) , Monocytes (%) (Auto) , Eosinophils (%) (Auto) , Basophils (%) (Auto) , Sodium Level 143, Potassium Level 3.4L, Chloride Level 100, Carbon Dioxide Level 33H, Anion Gap 10, Blood Urea Nitrogen 18, Creatinine 2.8H, Estimat Glomerular Filtration Rate , Glucose Level 79, Calcium Level 8.4L , Total Bilirubin 1.7H, Direct Bilirubin 0.7H, Aspartate Amino Transf (AST/SGOT ) 20, Alanine Aminotransferase (ALT/SGPT) < 6L, Alkaline Phosphatase 80, Total Protein 7.2, Albumin 1.9L, Globulin 5.3, Albumin/Globulin Ratio 0.4L Height (Feet): 5 Height (Inches): 3.00 Weight (Pounds): 380 General Appearance: no apparent distress Cardiovascular: bradycardia Respiratory/Chest: decreased breath sounds Abdomen: soft Objective edema andreias COURTNEY LOPEZ Dec 14, 2016 14:16
[2016-12-14] MEDS: Cefepime 1gm/D5W 55ml IVPB SCH ×2 (15:28)
[2016-12-14 16:00] VITALS: BP 122/74
--- NOTE | 2016-12-14 16:40 | General Progress Note ---
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 INR improving. Continue to monitor #. Anemia secondary to chronic disease. Continue to closely monitor. Work up reviewed --> s/p multiple transfusions. watch counts, transfuse if hgb is below 8. Transfusion has been ordered # Positive occult blood. r/o gi bleed. gi following #. Anemia of kidney disease. Nephrology service following #. PEG tube placement #. Chronic ventilator dependent #. Permanent atrial fibrillation. #. Cellulitis and chronic lymphedema of the bilateral lower extremities. #. Congestive heart failure. Subjective ROS Limited/Unobtainable: Yes Allergies: Coded Allergies: AMOXICILLIN (Verified Allergy, Mild, RASH, 09/30/16) PENICILLINS (Unverified Allergy, Unknown, 09/30/16) Subjective on ventilator,downtrending hgb Objective Last 24 Hour Vital Signs Date Time Temp Pulse Resp B/P (MAP) Pulse Ox O2 Delivery O2 Flow Rate FiO2 12/14/16 16:00 50 12/14/16 15:15 78 18 50 12/14/16 13:00 72 18 50 12/14/16 12:02 72 12/14/16 12:00 50 12/14/16 12:00 97.9 68 18 112/61 98 Mechanical Ventilator 50 12/14/16 11:00 66 18 50 12/14/16 08:42 71 19 50 12/14/16 08:00 50 12/14/16 08:00 97.7 75 18 127/68 100 Mechanical Ventilator 50 12/14/16 07:00 68 18 50 12/14/16 05:17 94 19 50 12/14/16 04:20 78 12/14/16 04:00 50 12/14/16 04:00 99.3 86 18 115/59 98 Mechanical Ventilator 50 12/14/16 03:08 87 18 50 12/14/16 00:52 88 19 50 12/14/16 00:00 Mechanical Ventilator 50 12/14/16 00:00 50 12/14/16 00:00 93 12/13/16 23:57 99.7 75 20 96/58 Mechanical Ventilator 50.0 12/13/16 23:22 76 21 50 12/13/16 21:05 87 19 50 12/13/16 20:00 99.3 83 18 113/60 98 Mechanical Ventilator 50 12/13/16 20:00 50 12/13/16 20:00 84 12/13/16 19:33 84 18 50 12/13/16 19:00 Mechanical Ventilator 50 12/13/16 17:14 85 18 50 Laboratory Tests 12/14/16 03:40: White Blood Count 7.2, Red Blood Count 2.46L, Hemoglobin 7.6L, Hematocrit 24.5L , Mean Corpuscular Volume 100H, Mean Corpuscular Hemoglobin 31.1H, Mean Corpuscular Hemoglobin Concent 31.1L, Red Cell Distribution Width 21.1H, Platelet Count 203, Mean Platelet Volume 5.6L, Neutrophils (%) (Auto) , Lymphocytes (%) (Auto) , Monocytes (%) (Auto) , Eosinophils (%) (Auto) , Basophils (%) (Auto) , Sodium Level 143, Potassium Level 3.4L, Chloride Level 100, Carbon Dioxide Level 33H, Anion Gap 10, Blood Urea Nitrogen 18, Creatinine 2.8H, Estimat Glomerular Filtration Rate , Glucose Level 79, Calcium Level 8.4L , Total Bilirubin 1.7H, Direct Bilirubin 0.7H, Aspartate Amino Transf (AST/SGOT ) 20, Alanine Aminotransferase (ALT/SGPT) < 6L, Alkaline Phosphatase 80, Total Protein 7.2, Albumin 1.9L, Globulin 5.3, Albumin/Globulin Ratio 0.4L Height (Feet): 5 Height (Inches): 3.00 Weight (Pounds): 380 General Appearance: no apparent distress EENT: normal ENT inspection Neck: non-tender Cardiovascular: normal peripheral pulses Respiratory/Chest: chest wall non-tender Extremities: normal range of motion Serafin Haines Dec 14, 2016 16:40
--- NOTE | 2016-12-14 17:06 | Infectious Diseases Prog Note ---
Assessment/Plan Assessment/Plan Assesment: Probable VAP Scx : PSA and Providencia -CXR 12/13 : Pulmonary edema Leukocytosis , SP Cellulitis BLE and R arm- in the setting of chronic leg edema/venous stasis, s/ p Rx- Limited Venous duplex BLE (non diagnostic), no DVT R arm;Cellulitis resolved;Now residual venous stasis changes. -Bcx Neg Anasarca/ bilateral leg lymphedema VRE colonzied GT site : Wnd Cx : Morg M, Providencia ( Colonizer ) Anemia COPD Diastolic CHF Renal insufficiency- acute on chronic- started on HD 11/24 chronic resp failure, vent/trach dependent Gtbue pAfib pleural effusion MINA CKD GERD morbid obesity [facility] resident Plan: cont pt on Cefepime d# IV Vancomycin 11/11-11/12; 11/17-11/26 IV Cefepime 11/11-11/12 IV Ancef 11/12-11/28 Flagyl x1 11/11 monitor Cxray -extremity elevation -edema management -Monitor CBC/BMP, - vent support, trach care, aspiration precautions Subjective Constitutional: Denies: no symptoms, fever, chills, fatigue, anorexia, drenching sweats, other Allergies: Coded Allergies: AMOXICILLIN (Verified Allergy, Mild, RASH, 09/30/16) PENICILLINS (Unverified Allergy, Unknown, 09/30/16) Subjective Afebrile Objective Vital Signs Last 24 Hour Vital Signs Date Time Temp Pulse Resp B/P (MAP) Pulse Ox O2 Delivery O2 Flow Rate FiO2 12/14/16 16:00 50 12/14/16 16:00 96.6 110 18 122/74 96 Venturi Mask 55 12/14/16 15:15 78 18 50 12/14/16 13:00 72 18 50 12/14/16 12:02 72 12/14/16 12:00 50 12/14/16 12:00 97.9 68 18 112/61 98 Mechanical Ventilator 50 12/14/16 11:00 66 18 50 12/14/16 08:42 71 19 50 12/14/16 08:00 50 12/14/16 08:00 97.7 75 18 127/68 100 Mechanical Ventilator 50 12/14/16 07:00 68 18 50 12/14/16 05:17 94 19 50 12/14/16 04:20 78 11/7/17 04:00 50 12/14/16 04:00 99.3 86 18 115/59 98 Mechanical Ventilator 50 12/14/16 03:08 87 18 50 12/14/16 00:52 88 19 50 12/14/16 00:00 Mechanical Ventilator 50 12/14/16 00:00 50 12/14/16 00:00 93 12/13/16 23:57 99.7 75 20 96/58 Mechanical Ventilator 50.0 12/13/16 23:22 76 21 50 12/13/16 21:05 87 19 50 12/13/16 20:00 99.3 83 18 113/60 98 Mechanical Ventilator 50 12/13/16 20:00 50 12/13/16 20:00 84 12/13/16 19:33 84 18 50 12/13/16 19:00 Mechanical Ventilator 50 12/13/16 17:14 85 18 50 Height (Feet): 5 Height (Inches): 3.00 Weight (Pounds): 380 HEENT: mucous membranes moist Respiratory/Chest: no respiratory distress Cardiovascular: regularly irregular Abdomen: no organomegaly Laboratory Tests Test 12/14/16 03:40 White Blood Count 7.2 K/UL (4.8-10.8) Red Blood Count 2.46 M/UL (4.20-5.40) L Hemoglobin 7.6 G/DL (12.0-16.0) L Hematocrit 24.5 % (37.0-47.0) L Mean Corpuscular Volume 100 FL (80-99) H Mean Corpuscular Hemoglobin 31.1 PG (27.0-31.0) H Mean Corpuscular Hemoglobin Concent 31.1 G/DL (32.0-36.0) L Red Cell Distribution Width 21.1 % (11.6-14.8) H Platelet Count 203 K/UL (150-450) Mean Platelet Volume 5.6 FL (6.5-10.1) L Neutrophils (%) (Auto) % (45.0-75.0) Lymphocytes (%) (Auto) % (20.0-45.0) Monocytes (%) (Auto) % (1.0-10.0) Eosinophils (%) (Auto) % (0.0-3.0) Basophils (%) (Auto) % (0.0-2.0) Sodium Level 143 MMOL/L (136-145) Potassium Level 3.4 MMOL/L (3.5-5.1) L Chloride Level 100 MMOL/L (98-107) Carbon Dioxide Level 33 MMOL/L (21-32) H Anion Gap 10 mmol/L (5-15) Blood Urea Nitrogen 18 mg/dL (7-18) Creatinine 2.8 MG/DL (0.55-1.30) H Estimat Glomerular Filtration Rate mL/min (>60) Glucose Level 79 MG/DL (74-106) Calcium Level 8.4 MG/DL (8.5-10.1) L Total Bilirubin 1.7 MG/DL (0.2-1.0) H Direct Bilirubin 0.7 MG/DL (0.0-0.3) H Aspartate Amino Transf (AST/SGOT) 20 U/L (15-37) Alanine Aminotransferase (ALT/SGPT) < 6 U/L (12-78) L Alkaline Phosphatase 80 U/L (46-116) Total Protein 7.2 G/DL (6.4-8.2) Albumin 1.9 G/DL (3.4-5.0) L Globulin 5.3 g/dL Albumin/Globulin Ratio 0.4 (1.0-2.7) L Current Medications Medications (Trade) Dose Ordered Sig/Kalyn Route PRN Reason Start Time Stop Time Status Last Admin Dose Admin Albuterol/ Ipratropium (Albuterol/ Ipratropium) 3 ml Q4H PRN HHN Shortness of Breath 12/12/16 10:30 12/17/16 10:29 12/12/16 17:21 Allopurinol (Zyloprim) 100 mg DAILY ORAL 12/15/16 09:00 01/14/17 08:59 Cefepime HCl 1 gm/ Dextrose 55 ml @ 110 mls/hr Q24H IVPB 12/14/16 16:00 12/21/16 15:59 12/14/16 15:28 Chlorhexidine Gluconate (Marni-Hex 2%) 1 applic Q24H TOPIC 12/03/16 20:00 12/27/16 19:59 12/13/16 21:00 Diphenhydramine HCl (Benadryl) 25 mg Q6H PRN IVP Itching 12/03/16 15:00 12/19/16 14:59 Docusate Sodium (Colace) 100 mg TWICE A DAY GT 12/04/16 09:00 01/03/17 08:59 12/14/16 08:50 Epoetin Santos (Procrit (for non ESRD use)) 10,000 units TUE-TUE-TUE SUBQ 12/03/16 21:00 12/17/16 20:59 12/13/16 21:01 Midodrine (Pro-Amatine) 10 mg EVERY 8 HOURS GT 12/12/16 14:00 01/11/17 13:59 12/14/16 13:34 Polyethylene Glycol (Miralax) 17 gm BEDTIME ORAL 12/12/16 21:30 01/11/17 21:29 12/13/16 21:01 Ranitidine HCl (Zantac) 150 mg TWICE A DAY GT 12/05/16 18:00 01/04/17 17:59 12/14/16 08:50 LINDSEY HILL M.D. Dec 14, 2016 17:06
[2016-12-14] MEDS ORDERED: KCl 10% 40mEq/30ml liquid NG ONE (19:45)
[2016-12-14] MEDS: Dyna-Hex 2% Top Sol 2oz TOPIC SCH (19:58)
[2016-12-14 20:00] VITALS: BP 96/93
--- NOTE | 2016-12-14 20:48 | General Progress Note ---
Assessment/Plan Status: progressing Assessment/Plan This is a 76-year-old, morbidly obese female, admitted with anasarca and cellulitis of the lower leg. The patient was admitted to the directr observation unit on the monitor with the following medical problems. now transfered to icu as of 11-14-16, co of pruritis 1. Anasarca. She appears to be markedly swollen. She will need diuresis. Place the patient on Lasix 20 mg intravenous for now q.12 hours. Cardiology and Pulmonary on the case. We will follow orders. Check laboratory studies daily. Lasix drip was discontinued in am, HD started 2. Chronic hypercapnic respiratory failure. Continue with vent support per Pulmonary. will discuss with pulmonary regarding trach issues 3 anemia. s./p transfusion of PRBC Continue monitoring CBC daily. patient to start Procrit per nephrology 4. Pulmonary hypertension. hold Eliquis as patient is ob positive 5. Chronic kidney disease. On HD for now per nephrology. 6. DVT prophylaxis. scds 7. nutrition: patient didn't tolerate NGT placement, patient is now s/p PEG placement, tolerating tube feeding 8. Alkalosis: resolved 9. Generalized anxiety: Ativan prn, counselled for 15min 10. constipation: prn enema, continue with Colace and MiraLAX had revision of trach on 11-23-16 11. Anemia: finished transfusion of one unit of PRBC 12/13/16 12. abdominal Pain: probable constipation, will order Miralax and colace fu serial abdominal exams, am labs 13. leg blisster: Xeroform dressing 14. VTE prophylaxis: SCDs Benadryl 25 mg iv q 6 prn itching tolerating tube feeding continue HD per nephrology trach revision done by Dr. Powell transfused one unit of PRBC on 12-13-16, 12-14-16 discussed with nursing staff HD per nephrology continue current care pt ot patient requesting evaluation for transfer to [facility] once stable for transfer, will discuss with case reviewer am labs, will order swallow eval again later in the week aquaphore xeroform dressing on open wound on left leg Subjective Date patient seen: Dec 14, 2016 Allergies: Coded Allergies: AMOXICILLIN (Verified Allergy, Mild, RASH, 09/30/16) PENICILLINS (Unverified Allergy, Unknown, 09/30/16) Subjective had transfusion of one unit of PRBC for anemia again today Objective Last 24 Hour Vital Signs Date Time Temp Pulse Resp B/P (MAP) Pulse Ox O2 Delivery O2 Flow Rate FiO2 12/14/16 20:30 87 18 50 12/14/16 19:46 82 19 50 12/14/16 17:08 85 19 50 12/14/16 16:00 83 12/14/16 16:00 50 12/14/16 16:00 96.6 110 18 122/74 96 Venturi Mask 55 12/14/16 15:15 78 18 50 12/14/16 13:00 72 18 50 12/14/16 12:02 72 12/14/16 12:00 50 12/14/16 12:00 97.9 68 18 112/61 98 Mechanical Ventilator 50 12/14/16 11:00 66 18 50 12/14/16 08:42 71 19 50 12/14/16 08:00 50 12/14/16 08:00 97.7 75 18 127/68 100 Mechanical Ventilator 50 12/14/16 07:00 68 18 50 12/14/16 05:17 94 19 50 12/14/16 04:20 78 12/14/16 04:00 50 12/14/16 04:00 99.3 86 18 115/59 98 Mechanical Ventilator 50 12/14/16 03:08 87 18 50 12/14/16 00:52 88 19 50 12/14/16 00:00 Mechanical Ventilator 50 12/14/16 00:00 50 12/14/16 00:00 93 12/13/16 23:57 99.7 75 20 96/58 Mechanical Ventilator 50.0 12/13/16 23:22 76 21 50 12/13/16 21:05 87 19 50 Intake and Output 12/14/16 12/15/16 19:00 07:00 Intake Total 475 ml Balance 475 ml Free Water 90 ml IV Total 55 ml Tube Feeding 330 ml # Bowel Movements 1 Laboratory Tests 12/14/16 03:40: White Blood Count 7.2, Red Blood Count 2.46L, Hemoglobin 7.6L, Hematocrit 24.5L , Mean Corpuscular Volume 100H, Mean Corpuscular Hemoglobin 31.1H, Mean Corpuscular Hemoglobin Concent 31.1L, Red Cell Distribution Width 21.1H, Platelet Count 203, Mean Platelet Volume 5.6L, Neutrophils (%) (Auto) , Lymphocytes (%) (Auto) , Monocytes (%) (Auto) , Eosinophils (%) (Auto) , Basophils (%) (Auto) , Sodium Level 143, Potassium Level 3.4L, Chloride Level 100, Carbon Dioxide Level 33H, Anion Gap 10, Blood Urea Nitrogen 18, Creatinine 2.8H, Estimat Glomerular Filtration Rate , Glucose Level 79, Calcium Level 8.4L , Total Bilirubin 1.7H, Direct Bilirubin 0.7H, Aspartate Amino Transf (AST/SGOT ) 20, Alanine Aminotransferase (ALT/SGPT) < 6L, Alkaline Phosphatase 80, Total Protein 7.2, Albumin 1.9L, Globulin 5.3, Albumin/Globulin Ratio 0.4L Height (Feet): 5 Height (Inches): 3.00 Weight (Pounds): 380 General Appearance: morbidly obese EENT: PERRL/EOMI, pharynx normal Neck: non-tender, supple Cardiovascular: normal rate, regular rhythm, no gallop/murmur, no JVD Respiratory/Chest: decreased breath sounds Abdomen: distended Extremities: swelling Edema: 3+ Arm (L), 3+ Arm (R), 3+ Leg (L), 3+ Leg (R), 3+ Pedal (L), 3+ Pedal ( R), 3+ Generalized Edema: severe edema 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
[2016-12-14] MEDS: Miralax 17gm pkt ORAL SCH (21:00)
[2016-12-15] VITALS: BP 102/87
[2016-12-15 04:00] VITALS: BP 96/45
[2016-12-15 05:29] LABS: BASOPHILS % (AUTO) 1.5 % (0.0-2.0); EOSINOPHILS % (AUTO) 1.6 % (0.0-3.0); LYMPHOCYTES % (AUTO) 18.5 % (20.0-45.0); MEAN CORPUSCULAR HEMOGLOBIN 31.3 PG (27.0-31.0); MEAN CORPUSCULAR HGB CONC 31.2 G/DL (32.0-36.0); MEAN CORPUSCULAR VOLUME 100 FL (80-99); MEAN PLATELET VOLUME 5.9 FL (6.5-10.1); MONOCYTES % (AUTO) 14.6 % (1.0-10.0); NEUTROPHILS % (AUTO) 63.8 % (45.0-75.0); PLATELET COUNT 219 K/UL (150-450); RED BLOOD COUNT 2.63 M/UL (4.20-5.40); RED CELL DISTRIBUTION WIDTH 20.6 % (11.6-14.8); WHITE BLOOD COUNT 7.7 K/UL (4.8-10.8)
[2016-12-15 06:02] LABS: ALANINE AMINOTRANSFERASE < 6 U/L (12-78); ALBUMIN/GLOBULIN RATIO 0.4 (1.0-2.7); ANION GAP 10 mmol/L (5-15); ASPARTATE AMINO TRANSFERASE 19 U/L (15-37); CALCIUM 8.4 MG/DL (8.5-10.1); CARBON DIOXIDE 32 MMOL/L (21-32); CHLORIDE 100 MMOL/L (98-107); CREATININE 3.1 MG/DL (0.55-1.30); POTASSIUM 3.6 MMOL/L (3.5-5.1); SODIUM 142 MMOL/L (136-145); TOTAL PROTEIN 7.3 G/DL (6.4-8.2)
[2016-12-15 06:05] LABS: BILIRUBIN,DIRECT 0.8 MG/DL (0.0-0.3); MAGNESIUM 1.5 MG/DL (1.8-2.4); PHOSPHORUS 4.4 MG/DL (2.5-4.9); URIC ACID 2.9 MG/DL (2.6-7.2)
[2016-12-15] MEDS: Midodrine 10mg tab GT SCH ×3 (06:24→22:05)
[2016-12-15 08:00] VITALS: BP 133/61
[2016-12-15] MEDS: Docusate 100mg/10ml Liq GT SCH ×2 (09:21→17:56)
[2016-12-15] MEDS: Allopurinol 100mg Tab ORAL SCH (09:22)
--- NOTE | 2016-12-15 11:09 | Pulmonology Progress Note ---
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: nurses, case maker Subjective ROS Limited/Unobtainable: No Constitutional: Reports: no symptoms HEENT: Repors: no symptoms Respiratory: Reports: no symptoms Allergies: Coded Allergies: AMOXICILLIN (Verified Allergy, Mild, RASH, 09/30/16) PENICILLINS (Unverified Allergy, Unknown, 09/30/16) Objective Last 24 Hour Vital Signs Date Time Temp Pulse Resp B/P (MAP) Pulse Ox O2 Delivery O2 Flow Rate FiO2 12/15/16 10:32 76 18 50 12/15/16 08:31 76 18 50 12/15/16 08:00 98.1 78 18 133/61 98 Mechanical Ventilator 50 12/15/16 08:00 50 12/15/16 07:27 76 12/15/16 06:42 75 18 50 12/15/16 05:00 97 18 50 12/15/16 04:00 76 12/15/16 04:00 97.1 90 20 96/45 96 Mechanical Ventilator 55 12/15/16 04:00 50 12/15/16 03:20 97 19 50 12/15/16 00:59 84 18 50 12/15/16 00:08 75 12/15/16 00:00 98.0 92 20 102/87 96 Mechanical Ventilator 55 12/14/16 23:22 91 19 50 12/14/16 20:30 87 18 50 12/14/16 20:00 97.1 90 20 96/93 96 Mechanical Ventilator 55 12/14/16 20:00 50 12/14/16 19:47 80 12/14/16 19:46 82 19 50 12/14/16 17:08 85 19 50 12/14/16 16:00 83 12/14/16 16:00 50 12/14/16 16:00 96.6 110 18 122/74 96 Venturi Mask 55 12/14/16 15:15 78 18 50 12/14/16 13:00 72 18 50 12/14/16 12:02 72 12/14/16 12:00 50 12/14/16 12:00 97.9 68 18 112/61 98 Mechanical Ventilator 50 12/14/16 11:00 66 18 50 Intake and Output 12/15/16 12/16/16 19:00 07:00 Intake Total 160 ml Balance 160 ml Free Water 100 ml Tube Feeding 60 ml # Bowel Movements 1 General Appearance: WD/WN, cachetic HEENT: normocephalic, atraumatic Respiratory/Chest: chest wall non-tender, lungs clear Breasts: no masses Cardiovascular: normal peripheral pulses, normal rate Abdomen: normal bowel sounds, soft, non tender Genitourinary: normal external genitalia Extremities: no cyanosis Laboratory Tests 12/15/16 04:00: White Blood Count 7.7, Red Blood Count 2.63L, Hemoglobin 8.2L, Hematocrit 26.4L , Mean Corpuscular Volume 100H, Mean Corpuscular Hemoglobin 31.3H, Mean Corpuscular Hemoglobin Concent 31.2L, Red Cell Distribution Width 20.6H, Platelet Count 219, Mean Platelet Volume 5.9L, Neutrophils (%) (Auto) 63.8, Lymphocytes (%) (Auto) 18.5L, Monocytes (%) (Auto) 14.6H, Eosinophils (%) (Auto ) 1.6, Basophils (%) (Auto) 1.5, Sodium Level 142, Potassium Level 3.6, Chloride Level 100, Carbon Dioxide Level 32, Anion Gap 10, Blood Urea Nitrogen 22H, Creatinine 3.1H, Estimat Glomerular Filtration Rate , Glucose Level 82, Uric Acid 2.9, Calcium Level 8.4L, Phosphorus Level 4.4, Magnesium Level 1.5L, Total Bilirubin 1.8H, Direct Bilirubin 0.8H, Aspartate Amino Transf (AST/SGOT) 19, Alanine Aminotransferase (ALT/SGPT) < 6L, Alkaline Phosphatase 78, Pro-B- Type Natriuretic Peptide [id number], Total Protein 7.3, Albumin 2.0L, Globulin 5.3, Albumin/Globulin Ratio 0.4L Current Medications Medications (Trade) Dose Ordered Sig/Kalyn Route PRN Reason Start Time Stop Time Status Last Admin Dose Admin Albuterol/ Ipratropium (Albuterol/ Ipratropium) 3 ml Q4H PRN HHN Shortness of Breath 12/12/16 10:30 12/17/16 10:29 12/12/16 17:21 Allopurinol (Zyloprim) 100 mg DAILY ORAL 12/15/16 09:00 01/14/17 08:59 12/15/16 09:22 Cefepime HCl 1 gm/ Dextrose 55 ml @ 110 mls/hr Q24H IVPB 12/14/16 16:00 12/21/16 15:59 12/14/16 15:28 Chlorhexidine Gluconate (Marni-Hex 2%) 1 applic Q24H TOPIC 12/03/16 20:00 12/27/16 19:59 12/14/16 19:58 Diphenhydramine HCl (Benadryl) 25 mg Q6H PRN IVP Itching 12/03/16 15:00 12/19/16 14:59 Docusate Sodium (Colace) 100 mg TWICE A DAY GT 12/04/16 09:00 01/03/17 08:59 12/15/16 09:21 Epoetin Santos (Procrit (for non ESRD use)) 10,000 units TUE-TUE-TUE SUBQ 12/03/16 21:00 12/17/16 20:59 12/13/16 21:01 Magnesium Sulfate 100 ml @ 100 mls/hr Q1H IVPB 12/15/16 10:00 12/15/16 11:59 Midodrine (Pro-Amatine) 10 mg EVERY 8 HOURS GT 12/12/16 14:00 01/11/17 13:59 12/15/16 06:24 Polyethylene Glycol (Miralax) 17 gm BEDTIME ORAL 12/12/16 21:30 01/11/17 21:29 12/13/16 21:01 Ranitidine HCl (Zantac) 150 mg TWICE A DAY GT 12/05/16 18:00 01/04/17 17:59 12/15/16 09:22 ARASH MIRANDA Dec 15, 2016 11:08
--- NOTE | 2016-12-15 11:13 | GI Progress Note ---
Assessment/Plan Problems: (1) Positive occult stool blood test ICD Codes: R19.5 - Other fecal abnormalities SNOMED: 26560515, 447250182 (2) Morbid obesity ICD Codes: E66.01 - Morbid (severe) obesity due to excess calories SNOMED: 165691737, 30647420042022 (3) Anemia ICD Codes: D64.9 - Anemia, unspecified SNOMED: 630053951 (4) PEG (percutaneous endoscopic gastrostomy) adjustment/replacement/removal ICD Codes: Z43.1 - Encounter for attention to gastrostomy SNOMED: 982630911, 363657000 Status: stable, unchanged Status Narrative 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 Dr. Noriega. Assessment/Plan s/p PEG GTF per dietary at goal fu pulmonary recs bowel regime monitor H&H, prn transfusions ppi fu labs Subjective Subjective limited Objective Last 24 Hour Vital Signs Date Time Temp Pulse Resp B/P (MAP) Pulse Ox O2 Delivery O2 Flow Rate FiO2 12/15/16 10:32 76 18 50 12/15/16 08:31 76 18 50 12/15/16 08:00 98.1 78 18 133/61 98 Mechanical Ventilator 50 12/15/16 08:00 50 12/15/16 07:27 76 12/15/16 06:42 75 18 50 12/15/16 05:00 97 18 50 12/15/16 04:00 76 12/15/16 04:00 97.1 90 20 96/45 96 Mechanical Ventilator 55 12/15/16 04:00 50 12/15/16 03:20 97 19 50 12/15/16 00:59 84 18 50 12/15/16 00:08 75 12/15/16 00:00 98.0 92 20 102/87 96 Mechanical Ventilator 55 12/14/16 23:22 91 19 50 12/14/16 20:30 87 18 50 12/14/16 20:00 97.1 90 20 96/93 96 Mechanical Ventilator 55 12/14/16 20:00 50 12/14/16 19:47 80 12/14/16 19:46 82 19 50 12/14/16 17:08 85 19 50 12/14/16 16:00 83 12/14/16 16:00 50 12/14/16 16:00 96.6 110 18 122/74 96 Venturi Mask 55 12/14/16 15:15 78 18 50 12/14/16 13:00 72 18 50 12/14/16 12:02 72 12/14/16 12:00 50 12/14/16 12:00 97.9 68 18 112/61 98 Mechanical Ventilator 50 Intake and Output 12/15/16 12/16/16 19:00 07:00 Intake Total 160 ml Balance 160 ml Free Water 100 ml Tube Feeding 60 ml # Bowel Movements 1 Laboratory Tests Test 12/15/16 04:00 White Blood Count 7.7 K/UL (4.8-10.8) Red Blood Count 2.63 M/UL (4.20-5.40) L Hemoglobin 8.2 G/DL (12.0-16.0) L Hematocrit 26.4 % (37.0-47.0) L Mean Corpuscular Volume 100 FL (80-99) H Mean Corpuscular Hemoglobin 31.3 PG (27.0-31.0) H Mean Corpuscular Hemoglobin Concent 31.2 G/DL (32.0-36.0) L Red Cell Distribution Width 20.6 % (11.6-14.8) H Platelet Count 219 K/UL (150-450) Mean Platelet Volume 5.9 FL (6.5-10.1) L Neutrophils (%) (Auto) 63.8 % (45.0-75.0) Lymphocytes (%) (Auto) 18.5 % (20.0-45.0) L Monocytes (%) (Auto) 14.6 % (1.0-10.0) H Eosinophils (%) (Auto) 1.6 % (0.0-3.0) Basophils (%) (Auto) 1.5 % (0.0-2.0) Sodium Level 142 MMOL/L (136-145) Potassium Level 3.6 MMOL/L (3.5-5.1) Chloride Level 100 MMOL/L (98-107) Carbon Dioxide Level 32 MMOL/L (21-32) Anion Gap 10 mmol/L (5-15) Blood Urea Nitrogen 22 mg/dL (7-18) H Creatinine 3.1 MG/DL (0.55-1.30) H Estimat Glomerular Filtration Rate mL/min (>60) Glucose Level 82 MG/DL (74-106) Uric Acid 2.9 MG/DL (2.6-7.2) Calcium Level 8.4 MG/DL (8.5-10.1) L Phosphorus Level 4.4 MG/DL (2.5-4.9) Magnesium Level 1.5 MG/DL (1.8-2.4) L Total Bilirubin 1.8 MG/DL (0.2-1.0) H Direct Bilirubin 0.8 MG/DL (0.0-0.3) H Aspartate Amino Transf (AST/SGOT) 19 U/L (15-37) Alanine Aminotransferase (ALT/SGPT) < 6 U/L (12-78) L Alkaline Phosphatase 78 U/L (46-116) Pro-B-Type Natriuretic Peptide 37541 pg/mL (0-125) H Total Protein 7.3 G/DL (6.4-8.2) Albumin 2.0 G/DL (3.4-5.0) L Globulin 5.3 g/dL Albumin/Globulin Ratio 0.4 (1.0-2.7) L Height (Feet): 5 Height (Inches): 3.00 Weight (Pounds): 382 General Appearance: no apparent distress, alert, overweight Cardiovascular: normal rate Respiratory/Chest: no respiratory distress, other - mech vent Abdominal Exam: normal bowel sounds, non tender, soft, GT site - c/d/i Extremities: non-tender Kateryna Sherman N.P. Dec 15, 2016 11:13
[2016-12-15 12:00] VITALS: BP 131/64
--- NOTE | 2016-12-15 12:41 | Infectious Diseases Prog Note ---
Assessment/Plan Assessment/Plan Assesment: Probable VAP Scx : PSA and Providencia -CXR 12/13 : Pulmonary edema Leukocytosis , SP Cellulitis BLE and R arm- in the setting of chronic leg edema/venous stasis, s/ p Rx- Limited Venous duplex BLE (non diagnostic), no DVT R arm;Cellulitis resolved;Now residual venous stasis changes. -Bcx Neg Anasarca/ bilateral leg lymphedema VRE colonzied GT site : Wnd Cx : Morg M, Providencia ( Colonizer ) Anemia COPD Diastolic CHF Renal insufficiency- acute on chronic- started on HD 11/24 chronic resp failure, vent/trach dependent Gtbue pAfib pleural effusion MINA CKD GERD morbid obesity [facility] resident Plan: cont pt on Cefepime d# IV Vancomycin 11/11-11/12; 11/17-11/26 IV Cefepime 11/11-11/12 IV Ancef 11/12-11/28 Flagyl x1 11/11 monitor Cxray -extremity elevation -edema management -Monitor CBC/BMP, - vent support, trach care, aspiration precautions Subjective Constitutional: Denies: no symptoms, fever, chills, fatigue, anorexia, drenching sweats, other Allergies: Coded Allergies: AMOXICILLIN (Verified Allergy, Mild, RASH, 09/30/16) PENICILLINS (Unverified Allergy, Unknown, 09/30/16) Subjective Afebrile Objective Vital Signs Last 24 Hour Vital Signs Date Time Temp Pulse Resp B/P (MAP) Pulse Ox O2 Delivery O2 Flow Rate FiO2 12/15/16 10:32 76 18 50 12/15/16 08:31 76 18 50 12/15/16 08:00 98.1 78 18 133/61 98 Mechanical Ventilator 50 12/15/16 08:00 50 12/15/16 07:27 76 12/15/16 06:42 75 18 50 12/15/16 05:00 97 18 50 12/15/16 04:00 76 12/15/16 04:00 97.1 90 20 96/45 96 Mechanical Ventilator 55 12/15/16 04:00 50 12/15/16 03:20 97 19 50 12/15/16 00:59 84 18 50 12/15/16 00:08 75 12/15/16 00:00 98.0 92 20 102/87 96 Mechanical Ventilator 55 12/14/16 23:22 91 19 50 12/14/16 20:30 87 18 50 12/14/16 20:00 97.1 90 20 96/93 96 Mechanical Ventilator 55 12/14/16 20:00 50 12/14/16 19:47 80 12/14/16 19:46 82 19 50 12/14/16 17:08 85 19 50 12/14/16 16:00 83 12/14/16 16:00 50 12/14/16 16:00 96.6 110 18 122/74 96 Venturi Mask 55 12/14/16 15:15 78 18 50 12/14/16 13:00 72 18 50 Height (Feet): 5 Height (Inches): 3.00 Weight (Pounds): 382 HEENT: anicteric Respiratory/Chest: no respiratory distress Cardiovascular: regularly irregular Laboratory Tests Test 12/15/16 04:00 White Blood Count 7.7 K/UL (4.8-10.8) Red Blood Count 2.63 M/UL (4.20-5.40) L Hemoglobin 8.2 G/DL (12.0-16.0) L Hematocrit 26.4 % (37.0-47.0) L Mean Corpuscular Volume 100 FL (80-99) H Mean Corpuscular Hemoglobin 31.3 PG (27.0-31.0) H Mean Corpuscular Hemoglobin Concent 31.2 G/DL (32.0-36.0) L Red Cell Distribution Width 20.6 % (11.6-14.8) H Platelet Count 219 K/UL (150-450) Mean Platelet Volume 5.9 FL (6.5-10.1) L Neutrophils (%) (Auto) 63.8 % (45.0-75.0) Lymphocytes (%) (Auto) 18.5 % (20.0-45.0) L Monocytes (%) (Auto) 14.6 % (1.0-10.0) H Eosinophils (%) (Auto) 1.6 % (0.0-3.0) Basophils (%) (Auto) 1.5 % (0.0-2.0) Sodium Level 142 MMOL/L (136-145) Potassium Level 3.6 MMOL/L (3.5-5.1) Chloride Level 100 MMOL/L (98-107) Carbon Dioxide Level 32 MMOL/L (21-32) Anion Gap 10 mmol/L (5-15) Blood Urea Nitrogen 22 mg/dL (7-18) H Creatinine 3.1 MG/DL (0.55-1.30) H Estimat Glomerular Filtration Rate mL/min (>60) Glucose Level 82 MG/DL (74-106) Uric Acid 2.9 MG/DL (2.6-7.2) Calcium Level 8.4 MG/DL (8.5-10.1) L Phosphorus Level 4.4 MG/DL (2.5-4.9) Magnesium Level 1.5 MG/DL (1.8-2.4) L Total Bilirubin 1.8 MG/DL (0.2-1.0) H Direct Bilirubin 0.8 MG/DL (0.0-0.3) H Aspartate Amino Transf (AST/SGOT) 19 U/L (15-37) Alanine Aminotransferase (ALT/SGPT) < 6 U/L (12-78) L Alkaline Phosphatase 78 U/L (46-116) Pro-B-Type Natriuretic Peptide 36130 pg/mL (0-125) H Total Protein 7.3 G/DL (6.4-8.2) Albumin 2.0 G/DL (3.4-5.0) L Globulin 5.3 g/dL Albumin/Globulin Ratio 0.4 (1.0-2.7) L Current Medications Medications (Trade) Dose Ordered Sig/Kalyn Route PRN Reason Start Time Stop Time Status Last Admin Dose Admin Albuterol/ Ipratropium (Albuterol/ Ipratropium) 3 ml Q4H PRN HHN Shortness of Breath 12/12/16 10:30 12/17/16 10:29 12/12/16 17:21 Allopurinol (Zyloprim) 100 mg DAILY ORAL 12/15/16 09:00 01/14/17 08:59 12/15/16 09:22 Cefepime HCl 1 gm/ Dextrose 55 ml @ 110 mls/hr Q24H IVPB 12/14/16 16:00 12/21/16 15:59 12/14/16 15:28 Chlorhexidine Gluconate (Marni-Hex 2%) 1 applic Q24H TOPIC 12/03/16 20:00 12/27/16 19:59 12/14/16 19:58 Diphenhydramine HCl (Benadryl) 25 mg Q6H PRN IVP Itching 12/03/16 15:00 12/19/16 14:59 Docusate Sodium (Colace) 100 mg TWICE A DAY GT 12/04/16 09:00 01/03/17 08:59 12/15/16 09:21 Epoetin Santos (Procrit (for non ESRD use)) 10,000 units TUE-TUE-TUE SUBQ 12/03/16 21:00 12/17/16 20:59 12/13/16 21:01 Midodrine (Pro-Amatine) 10 mg EVERY 8 HOURS GT 12/12/16 14:00 01/11/17 13:59 12/15/16 06:24 Polyethylene Glycol (Miralax) 17 gm BEDTIME ORAL 12/12/16 21:30 01/11/17 21:29 12/13/16 21:01 Ranitidine HCl (Zantac) 150 mg TWICE A DAY GT 12/05/16 18:00 01/04/17 17:59 12/15/16 09:22 LINDSEY HILL M.D. Dec 15, 2016 12:41
--- NOTE | 2016-12-15 15:22 | Nephrology Progress Note ---
Assessment/Plan Problem List: (1) Renal failure Assessment: CKD + ACUTE (2) Acute and chronic respiratory failure (3) CHF (congestive heart failure) (4) Morbid obesity (5) Atrial fibrillation Assessment Stable from renal stand CKD- and acute renal failure - Acute respiratory failure s/p Trach Obese COPD , CHF, Diastolic MINA UTI Anemia GI Bleed, GI bleeding At Fib Pulm HTN h/o Low B12 Plan Plan: Now has PEG- HD 12/16 next K supplement as needed on EPOGEN 24 H urine collection in process: CrCl 6 Monitor renal parameters- optimize cardiac and pulm status pulmonary support- transfuse as needed ? DC planning post PEG, placement is complicated Subjective ROS Limited/Unobtainable: No Constitutional: Reports: malaise, weakness Objective Objective Last 24 Hour Vital Signs Date Time Temp Pulse Resp B/P (MAP) Pulse Ox O2 Delivery O2 Flow Rate FiO2 12/15/16 12:30 73 18 50 12/15/16 12:00 97.7 65 18 131/64 98 Mechanical Ventilator 50 12/15/16 11:41 71 12/15/16 10:32 76 18 50 12/15/16 08:31 76 18 50 12/15/16 08:00 98.1 78 18 133/61 98 Mechanical Ventilator 50 12/15/16 08:00 50 12/15/16 07:27 76 12/15/16 06:42 75 18 50 12/15/16 05:00 97 18 50 12/15/16 04:00 76 12/15/16 04:00 97.1 90 20 96/45 96 Mechanical Ventilator 55 12/15/16 04:00 50 12/15/16 03:20 97 19 50 12/15/16 00:59 84 18 50 12/15/16 00:08 75 12/15/16 00:00 98.0 92 20 102/87 96 Mechanical Ventilator 55 12/14/16 23:22 91 19 50 12/14/16 20:30 87 18 50 12/14/16 20:00 97.1 90 20 96/93 96 Mechanical Ventilator 55 12/14/16 20:00 50 12/14/16 19:47 80 12/14/16 19:46 82 19 50 12/14/16 17:08 85 19 50 12/14/16 16:00 83 12/14/16 16:00 50 12/14/16 16:00 96.6 110 18 122/74 96 Venturi Mask 55 Intake and Output 12/15/16 12/16/16 19:00 07:00 Intake Total 160 ml Balance 160 ml Free Water 100 ml Tube Feeding 60 ml # Bowel Movements 1 Laboratory Tests 12/15/16 04:00: White Blood Count 7.7, Red Blood Count 2.63L, Hemoglobin 8.2L, Hematocrit 26.4L , Mean Corpuscular Volume 100H, Mean Corpuscular Hemoglobin 31.3H, Mean Corpuscular Hemoglobin Concent 31.2L, Red Cell Distribution Width 20.6H, Platelet Count 219, Mean Platelet Volume 5.9L, Neutrophils (%) (Auto) 63.8, Lymphocytes (%) (Auto) 18.5L, Monocytes (%) (Auto) 14.6H, Eosinophils (%) (Auto ) 1.6, Basophils (%) (Auto) 1.5, Sodium Level 142, Potassium Level 3.6, Chloride Level 100, Carbon Dioxide Level 32, Anion Gap 10, Blood Urea Nitrogen 22H, Creatinine 3.1H, Estimat Glomerular Filtration Rate , Glucose Level 82, Uric Acid 2.9, Calcium Level 8.4L, Phosphorus Level 4.4, Magnesium Level 1.5L, Total Bilirubin 1.8H, Direct Bilirubin 0.8H, Aspartate Amino Transf (AST/SGOT) 19, Alanine Aminotransferase (ALT/SGPT) < 6L, Alkaline Phosphatase 78, Pro-B- Type Natriuretic Peptide [id number], Total Protein 7.3, Albumin 2.0L, Globulin 5.3, Albumin/Globulin Ratio 0.4L Height (Feet): 5 Height (Inches): 3.00 Weight (Pounds): 382 General Appearance: no apparent distress Cardiovascular: normal rate Respiratory/Chest: decreased breath sounds Abdomen: distended Extremities: other - edema LEs Objective edema andreias COURTNEY LOPEZ Dec 15, 2016 15:22
[2016-12-15 16:00] VITALS: BP 118/48
[2016-12-15] MEDS: Cefepime 1gm/D5W 55ml IVPB SCH ×2 (17:56)
--- NOTE | 2016-12-15 18:29 | General Progress Note ---
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 INR improving. Continue to monitor #. Anemia secondary to chronic disease. Continue to closely monitor. Work up reviewed --> s/p multiple transfusions. watch counts, transfuse if hgb is below 8. # Positive occult blood. r/o gi bleed. gi following #. Anemia of kidney disease. Nephrology service following #. PEG tube placement #. Chronic ventilator dependent #. Permanent atrial fibrillation. #. Cellulitis and chronic lymphedema of the bilateral lower extremities. #. Congestive heart failure. Subjective ROS Limited/Unobtainable: Yes Allergies: Coded Allergies: AMOXICILLIN (Verified Allergy, Mild, RASH, 09/30/16) PENICILLINS (Unverified Allergy, Unknown, 09/30/16) Subjective HH better Objective Last 24 Hour Vital Signs Date Time Temp Pulse Resp B/P (MAP) Pulse Ox O2 Delivery O2 Flow Rate FiO2 12/15/16 16:44 72 18 50 12/15/16 16:00 67 12/15/16 16:00 98.1 70 18 118/48 95 Mechanical Ventilator 50 12/15/16 14:51 75 18 50 12/15/16 12:30 73 18 50 12/15/16 12:00 97.7 65 18 131/64 98 Mechanical Ventilator 50 12/15/16 11:41 71 12/15/16 10:32 76 18 50 12/15/16 08:31 76 18 50 12/15/16 08:00 98.1 78 18 133/61 98 Mechanical Ventilator 50 12/15/16 08:00 50 12/15/16 07:27 76 12/15/16 06:42 75 18 50 12/15/16 05:00 97 18 50 12/15/16 04:00 76 12/15/16 04:00 97.1 90 20 96/45 96 Mechanical Ventilator 55 12/15/16 04:00 50 12/15/16 03:20 97 19 50 12/15/16 00:59 84 18 50 12/15/16 00:08 75 12/15/16 00:00 98.0 92 20 102/87 96 Mechanical Ventilator 55 12/14/16 23:22 91 19 50 12/14/16 20:30 87 18 50 12/14/16 20:00 97.1 90 20 96/93 96 Mechanical Ventilator 55 12/14/16 20:00 50 12/14/16 19:47 80 12/14/16 19:46 82 19 50 Intake and Output 12/15/16 12/16/16 19:00 07:00 Intake Total 160 ml Balance 160 ml Free Water 100 ml Tube Feeding 60 ml # Bowel Movements 1 Laboratory Tests 12/15/16 04:00: White Blood Count 7.7, Red Blood Count 2.63L, Hemoglobin 8.2L, Hematocrit 26.4L , Mean Corpuscular Volume 100H, Mean Corpuscular Hemoglobin 31.3H, Mean Corpuscular Hemoglobin Concent 31.2L, Red Cell Distribution Width 20.6H, Platelet Count 219, Mean Platelet Volume 5.9L, Neutrophils (%) (Auto) 63.8, Lymphocytes (%) (Auto) 18.5L, Monocytes (%) (Auto) 14.6H, Eosinophils (%) (Auto ) 1.6, Basophils (%) (Auto) 1.5, Sodium Level 142, Potassium Level 3.6, Chloride Level 100, Carbon Dioxide Level 32, Anion Gap 10, Blood Urea Nitrogen 22H, Creatinine 3.1H, Estimat Glomerular Filtration Rate , Glucose Level 82, Uric Acid 2.9, Calcium Level 8.4L, Phosphorus Level 4.4, Magnesium Level 1.5L, Total Bilirubin 1.8H, Direct Bilirubin 0.8H, Aspartate Amino Transf (AST/SGOT) 19, Alanine Aminotransferase (ALT/SGPT) < 6L, Alkaline Phosphatase 78, Pro-B- Type Natriuretic Peptide 24699F, Total Protein 7.3, Albumin 2.0L, Globulin 5.3, Albumin/Globulin Ratio 0.4L Height (Feet): 5 Height (Inches): 3.00 Weight (Pounds): 382 General Appearance: no apparent distress EENT: PERRL/EOMI Neck: normal alignment Cardiovascular: no JVD Respiratory/Chest: no accessory muscle use Abdomen: soft, no mass Edema: trace edema Serafin Haines Dec 15, 2016 18:29
[2016-12-15 20:00] VITALS: BP 114/57
--- NOTE | 2016-12-15 20:05 | General Progress Note ---
Assessment/Plan Assessment/Plan This is a 76-year-old, morbidly obese female, admitted with anasarca and cellulitis of the lower leg. The patient was admitted to the directr observation unit on the monitor with the following medical problems. now transfered to icu as of 11-14-16, co of pruritis 1. Anasarca. She appears to be markedly swollen. She will need diuresis. Place the patient on Lasix 20 mg intravenous for now q.12 hours. Cardiology and Pulmonary on the case. We will follow orders. Check laboratory studies daily. Lasix drip was discontinued in am, HD started 2. Chronic hypercapnic respiratory failure. Continue with vent support per Pulmonary. will discuss with pulmonary regarding trach issues 3 anemia. s./p transfusion of PRBC Continue monitoring CBC daily. patient to start Procrit per nephrology 4. Pulmonary hypertension. hold Eliquis as patient is ob positive 5. Chronic kidney disease. On HD for now per nephrology. 6. DVT prophylaxis. scds 7. nutrition: patient didn't tolerate NGT placement, patient is now s/p PEG placement, tolerating tube feeding 8. Alkalosis: resolved 9. Generalized anxiety: Ativan prn, counselled for 15min 10. constipation: prn enema, continue with Colace and MiraLAX had revision of trach on 11-23-16 11. Anemia: finished transfusion of one unit of PRBC 12/13/16 12. abdominal Pain: probable constipation, will order Miralax and colace fu serial abdominal exams, am labs 13. leg blisster: Xeroform dressing 14. VTE prophylaxis: SCDs Benadryl 25 mg iv q 6 prn itching tolerating tube feeding continue HD per nephrology trach revision done by Dr. Powell transfused one unit of PRBC on 12-13-16, 12-14-16 discussed with nursing staff HD per nephrology pt ot am labs, will order swallow eval again later in the week aquaphore xeroform dressing on open wound on left leg awaiting transfer to subacute hospital such as [facility] Subjective Date patient seen: Dec 15, 2016 Allergies: Coded Allergies: AMOXICILLIN (Verified Allergy, Mild, RASH, 09/30/16) PENICILLINS (Unverified Allergy, Unknown, 09/30/16) All Systems: reviewed and negative except above Subjective had transfusion of one unit of PRBC for anemia again today Objective Last 24 Hour Vital Signs Date Time Temp Pulse Resp B/P (MAP) Pulse Ox O2 Delivery O2 Flow Rate FiO2 12/15/16 19:26 71 18 50 12/15/16 16:44 72 18 50 12/15/16 16:00 50 12/15/16 16:00 67 12/15/16 16:00 98.1 70 18 118/48 95 Mechanical Ventilator 50 12/15/16 14:51 75 18 50 12/15/16 12:30 73 18 50 12/15/16 12:00 50 12/15/16 12:00 97.7 65 18 131/64 98 Mechanical Ventilator 50 12/15/16 11:41 71 12/15/16 10:32 76 18 50 12/15/16 08:31 76 18 50 12/15/16 08:00 98.1 78 18 133/61 98 Mechanical Ventilator 50 12/15/16 08:00 50 12/15/16 07:27 76 12/15/16 06:42 75 18 50 12/15/16 05:00 97 18 50 12/15/16 04:00 76 12/15/16 04:00 97.1 90 20 96/45 96 Mechanical Ventilator 55 12/15/16 04:00 50 12/15/16 03:20 97 19 50 12/15/16 00:59 84 18 50 12/15/16 00:08 75 12/15/16 00:00 98.0 92 20 102/87 96 Mechanical Ventilator 55 12/14/16 23:22 91 19 50 12/14/16 20:30 87 18 50 Intake and Output 12/15/16 12/16/16 19:00 07:00 Intake Total 580 ml Balance 580 ml Free Water 250 ml Tube Feeding 330 ml # Voids 2 # Bowel Movements 4 Laboratory Tests 12/15/16 04:00: White Blood Count 7.7, Red Blood Count 2.63L, Hemoglobin 8.2L, Hematocrit 26.4L , Mean Corpuscular Volume 100H, Mean Corpuscular Hemoglobin 31.3H, Mean Corpuscular Hemoglobin Concent 31.2L, Red Cell Distribution Width 20.6H, Platelet Count 219, Mean Platelet Volume 5.9L, Neutrophils (%) (Auto) 63.8, Lymphocytes (%) (Auto) 18.5L, Monocytes (%) (Auto) 14.6H, Eosinophils (%) (Auto ) 1.6, Basophils (%) (Auto) 1.5, Sodium Level 142, Potassium Level 3.6, Chloride Level 100, Carbon Dioxide Level 32, Anion Gap 10, Blood Urea Nitrogen 22H, Creatinine 3.1H, Estimat Glomerular Filtration Rate , Glucose Level 82, Uric Acid 2.9, Calcium Level 8.4L, Phosphorus Level 4.4, Magnesium Level 1.5L, Total Bilirubin 1.8H, Direct Bilirubin 0.8H, Aspartate Amino Transf (AST/SGOT) 19, Alanine Aminotransferase (ALT/SGPT) < 6L, Alkaline Phosphatase 78, Pro-B- Type Natriuretic Peptide 74703Y, Total Protein 7.3, Albumin 2.0L, Globulin 5.3, Albumin/Globulin Ratio 0.4L Height (Feet): 5 Height (Inches): 3.00 Weight (Pounds): 382 General Appearance: morbidly obese EENT: PERRL/EOMI, pharynx normal Neck: non-tender, supple Cardiovascular: normal rate, regular rhythm, no gallop/murmur, no JVD Respiratory/Chest: decreased breath sounds Abdomen: distended Extremities: swelling Edema: 3+ Arm (L), 3+ Arm (R), 3+ Leg (L), 3+ Leg (R), 3+ Pedal (L), 3+ Pedal ( R), 3+ Generalized Edema: moderate edema Neurologic: club former II-XII grossly normal, oriented x 3, responsive Skin: rash Manny Nolan MD Dec 15, 2016 20:05
[2016-12-15] MEDS: Dyna-Hex 2% Top Sol 2oz TOPIC SCH (20:15)
[2016-12-15] MEDS: Miralax 17gm pkt ORAL SCH (21:00)
[2016-12-15] MEDS: Epogen (for non ESRD use) SUBQ SCH (21:26)
[2016-12-16] VITALS (8 sets, daily range): BP systolic 95–120; BP diastolic 50–83
[2016-12-16 05:32] LABS: MEAN CORPUSCULAR HEMOGLOBIN 29.9 PG (27.0-31.0); MEAN CORPUSCULAR HGB CONC 29.2 G/DL (32.0-36.0); MEAN CORPUSCULAR VOLUME 102 FL (80-99); MEAN PLATELET VOLUME 5.3 FL (6.5-10.1); PLATELET COUNT 218 K/UL (150-450); RED BLOOD COUNT 2.58 M/UL (4.20-5.40); RED CELL DISTRIBUTION WIDTH 20.3 % (11.6-14.8); WHITE BLOOD COUNT 8.7 K/UL (4.8-10.8)
[2016-12-16] MEDS: Midodrine 10mg tab GT SCH ×3 (06:00→22:00)
[2016-12-16 06:25] LABS: ALANINE AMINOTRANSFERASE 6 U/L (12-78); ALBUMIN/GLOBULIN RATIO 0.4 (1.0-2.7); ANION GAP 10 mmol/L (5-15); ASPARTATE AMINO TRANSFERASE 19 U/L (15-37); CALCIUM 8.4 MG/DL (8.5-10.1); CARBON DIOXIDE 34 MMOL/L (21-32); CHLORIDE 99 MMOL/L (98-107); CREATININE 3.5 MG/DL (0.55-1.30); POTASSIUM 3.5 MMOL/L (3.5-5.1); SODIUM 142 MMOL/L (136-145); TOTAL PROTEIN 7.3 G/DL (6.4-8.2)
[2016-12-16 07:06] LABS: BILIRUBIN,DIRECT 0.6 MG/DL (0.0-0.3)
[2016-12-16] MEDS: Docusate 100mg/10ml Liq GT SCH ×2 (08:59→17:13)
[2016-12-16] MEDS: Allopurinol 100mg Tab ORAL SCH (08:59)
[2016-12-16 09:11] LABS: ANISOCYTOSIS 3+; BAND NEUTROPHILS % (MANUAL) 0 % (0-8); BASOPHILS % (MANUAL) 1 % (0-2); EOSINOPHILS % (MANUAL) 2 % (0-3); HYPOCHROMASIA 3+; LYMPHOCYTES % (MANUAL) 15 % (20-45); NEUTROPHILS % (MANUAL) 70 % (45-75); PLATELET ESTIMATE ADEQUATE; TOTAL CELLS COUNTED 100
[2016-12-16 09:12] LABS: MACROCYTES 1+; PLATELET MORPHOLOGY NORMAL
--- NOTE | 2016-12-16 10:58 | GI Progress Note ---
Assessment/Plan Problems: (1) Positive occult stool blood test ICD Codes: R19.5 - Other fecal abnormalities SNOMED: 60765382, 999609899 (2) Morbid obesity ICD Codes: E66.01 - Morbid (severe) obesity due to excess calories SNOMED: 506005309, 64170767666216 (3) Anemia ICD Codes: D64.9 - Anemia, unspecified SNOMED: 061509438 (4) PEG (percutaneous endoscopic gastrostomy) adjustment/replacement/removal ICD Codes: Z43.1 - Encounter for attention to gastrostomy SNOMED: 024906508, 132790469 Status: unchanged Status Narrative 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 Dr. Noriega. Assessment/Plan s/p PEG GTF per dietary at goal fu pulmonary recs bowel regime monitor H&H, prn transfusions ppi fu labs Subjective Subjective limited Objective Last 24 Hour Vital Signs Date Time Temp Pulse Resp B/P (MAP) Pulse Ox O2 Delivery O2 Flow Rate FiO2 12/16/16 08:41 85 18 50 12/16/16 08:00 74 12/16/16 08:00 97.8 78 18 110/58 97 Mechanical Ventilator 50 12/16/16 08:00 50 12/16/16 07:13 64 18 50 12/16/16 06:16 98.1 75 20 119/83 97 Mechanical Ventilator 50 12/16/16 05:07 85 25 50 12/16/16 04:00 71 12/16/16 04:00 98.3 85 19 110/60 95 Mechanical Ventilator 50 12/16/16 04:00 50 12/16/16 02:56 82 23 50 12/16/16 01:26 69 18 50 12/16/16 00:00 70 12/16/16 00:00 98.1 85 18 120/61 95 Mechanical Ventilator 50 12/16/16 00:00 50 12/15/16 23:07 71 18 50 12/15/16 21:10 73 18 50 12/15/16 20:00 67 12/15/16 20:00 99.8 84 18 114/57 93 Mechanical Ventilator 50 12/15/16 20:00 50 12/15/16 19:26 71 18 50 12/15/16 16:44 72 18 50 12/15/16 16:00 50 12/15/16 16:00 67 12/15/16 16:00 98.1 70 18 118/48 95 Mechanical Ventilator 50 12/15/16 14:51 75 18 50 12/15/16 12:30 73 18 50 12/15/16 12:00 50 12/15/16 12:00 97.7 65 18 131/64 98 Mechanical Ventilator 50 12/15/16 11:41 71 Intake and Output 12/16/16 12/17/16 19:00 07:00 Intake Total 140 ml Balance 140 ml Free Water 50 ml Tube Feeding 90 ml # Bowel Movements 1 Laboratory Tests Test 12/16/16 03:55 White Blood Count 8.7 K/UL (4.8-10.8) Red Blood Count 2.58 M/UL (4.20-5.40) L Hemoglobin 7.7 G/DL (12.0-16.0) L Hematocrit 26.4 % (37.0-47.0) L Mean Corpuscular Volume 102 FL (80-99) H Mean Corpuscular Hemoglobin 29.9 PG (27.0-31.0) Mean Corpuscular Hemoglobin Concent 29.2 G/DL (32.0-36.0) L Red Cell Distribution Width 20.3 % (11.6-14.8) H Platelet Count 218 K/UL (150-450) Mean Platelet Volume 5.3 FL (6.5-10.1) L Neutrophils (%) (Auto) % (45.0-75.0) Lymphocytes (%) (Auto) % (20.0-45.0) Monocytes (%) (Auto) % (1.0-10.0) Eosinophils (%) (Auto) % (0.0-3.0) Basophils (%) (Auto) % (0.0-2.0) Differential Total Cells Counted 100 Neutrophils % (Manual) 70 % (45-75) Lymphocytes % (Manual) 15 % (20-45) L Monocytes % (Manual) 12 % (1-10) H Eosinophils % (Manual) 2 % (0-3) Basophils % (Manual) 1 % (0-2) Band Neutrophils 0 % (0-8) Platelet Estimate Adequate Platelet Morphology Normal Hypochromasia 3+ Anisocytosis 3+ Macrocytosis 1+ Sodium Level 142 MMOL/L (136-145) Potassium Level 3.5 MMOL/L (3.5-5.1) Chloride Level 99 MMOL/L (98-107) Carbon Dioxide Level 34 MMOL/L (21-32) H Anion Gap 10 mmol/L (5-15) Blood Urea Nitrogen 24 mg/dL (7-18) H Creatinine 3.5 MG/DL (0.55-1.30) H Estimat Glomerular Filtration Rate mL/min (>60) Glucose Level 98 MG/DL (74-106) Calcium Level 8.4 MG/DL (8.5-10.1) L Total Bilirubin 1.4 MG/DL (0.2-1.0) H Direct Bilirubin 0.6 MG/DL (0.0-0.3) H Aspartate Amino Transf (AST/SGOT) 19 U/L (15-37) Alanine Aminotransferase (ALT/SGPT) 6 U/L (12-78) L Alkaline Phosphatase 74 U/L (46-116) Total Protein 7.3 G/DL (6.4-8.2) Albumin 2.0 G/DL (3.4-5.0) L Globulin 5.3 g/dL Albumin/Globulin Ratio 0.4 (1.0-2.7) L Height (Feet): 5 Height (Inches): 3.00 Weight (Pounds): 381 General Appearance: WD/WN, no apparent distress, alert, morbidly obese Cardiovascular: normal rate Respiratory/Chest: normal breath sounds, no respiratory distress, other - mech vent Abdominal Exam: normal bowel sounds, non tender, soft, GT site - c/d/i Extremities: non-tender Kateryna Sherman N.P. Dec 16, 2016 10:58
--- NOTE | 2016-12-16 11:35 | Pulmonology Progress Note ---
Assessment/Plan Problems: (1) Chronic respiratory failure (2) Anasarca (3) ATN (acute tubular necrosis) (4) Anemia (5) Peripheral edema (6) Pickwickian syndrome (7) MINA (obstructive sleep apnea) (8) Morbid obesity Respiratory: monitor respiratory rate, adjust FIO2, CXR Cardiac: continue to monitor HR/BP Renal: F/U I&O, check electrolytes Infectious Disease: check cultures, continue antibiotics Gastrointestinal: continue feedings/current rate Endocrine: monitor blood sugar, check HgA1C, continue sliding scale insulin Hematologic: monitor H/H, transfuse if hgb<8.5 Neurologic: PRN Morphine, keep patient comfortable Affect: PRN ativan Notes Reviewed: lead section supervisor, renal 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: nurses, consultants, hospice case manager Subjective ROS Limited/Unobtainable: No Constitutional: Reports: no symptoms HEENT: Repors: no symptoms Respiratory: Reports: no symptoms Allergies: Coded Allergies: AMOXICILLIN (Verified Allergy, Mild, RASH, 09/30/16) PENICILLINS (Unverified Allergy, Unknown, 09/30/16) Objective Last 24 Hour Vital Signs Date Time Temp Pulse Resp B/P (MAP) Pulse Ox O2 Delivery O2 Flow Rate FiO2 12/16/16 11:12 86 18 50 12/16/16 08:41 85 18 50 12/16/16 08:00 74 12/16/16 08:00 97.8 78 18 110/58 97 Mechanical Ventilator 50 12/16/16 08:00 50 12/16/16 07:13 64 18 50 12/16/16 06:16 98.1 75 20 119/83 97 Mechanical Ventilator 50 12/16/16 05:07 85 25 50 12/16/16 04:00 71 12/16/16 04:00 98.3 85 19 110/60 95 Mechanical Ventilator 50 12/16/16 04:00 50 12/16/16 02:56 82 23 50 12/16/16 01:26 69 18 50 12/16/16 00:00 70 12/16/16 00:00 98.1 85 18 120/61 95 Mechanical Ventilator 50 12/16/16 00:00 50 12/15/16 23:07 71 18 50 12/15/16 21:10 73 18 50 12/15/16 20:00 67 12/15/16 20:00 99.8 84 18 114/57 93 Mechanical Ventilator 50 12/15/16 20:00 50 12/15/16 19:26 71 18 50 12/15/16 16:44 72 18 50 12/15/16 16:00 50 12/15/16 16:00 67 12/15/16 16:00 98.1 70 18 118/48 95 Mechanical Ventilator 50 12/15/16 14:51 75 18 50 12/15/16 12:30 73 18 50 12/15/16 12:00 50 12/15/16 12:00 97.7 65 18 131/64 98 Mechanical Ventilator 50 12/15/16 11:41 71 Intake and Output 12/16/16 12/17/16 19:00 07:00 Intake Total 140 ml Balance 140 ml Free Water 50 ml Tube Feeding 90 ml # Bowel Movements 1 General Appearance: WD/WN HEENT: normocephalic, atraumatic, PERRL Respiratory/Chest: chest wall non-tender, lungs clear Breasts: no masses Cardiovascular: normal peripheral pulses, normal rate Genitourinary: normal external genitalia Extremities: no cyanosis Skin: no rash, no lesions Neurologic/Psychiatric: nursery hand II-XII grossly normal Lymphatic: no neck adenopathy Laboratory Tests 12/16/16 03:55: White Blood Count 8.7, Red Blood Count 2.58L, Hemoglobin 7.7L, Hematocrit 26.4L , Mean Corpuscular Volume 102H, Mean Corpuscular Hemoglobin 29.9, Mean Corpuscular Hemoglobin Concent 29.2L, Red Cell Distribution Width 20.3H, Platelet Count 218, Mean Platelet Volume 5.3L, Neutrophils (%) (Auto) , Lymphocytes (%) (Auto) , Monocytes (%) (Auto) , Eosinophils (%) (Auto) , Basophils (%) (Auto) , Differential Total Cells Counted 100, Neutrophils % ( Manual) 70, Lymphocytes % (Manual) 15L, Monocytes % (Manual) 12H, Eosinophils % (Manual) 2, Basophils % (Manual) 1, Band Neutrophils 0, Platelet Estimate Adequate, Platelet Morphology Normal, Hypochromasia 3+, Anisocytosis 3+, Macrocytosis 1+, Sodium Level 142, Potassium Level 3.5, Chloride Level 99, Carbon Dioxide Level 34H, Anion Gap 10, Blood Urea Nitrogen 24H, Creatinine 3.5H , Estimat Glomerular Filtration Rate , Glucose Level 98, Calcium Level 8.4L, Total Bilirubin 1.4H, Direct Bilirubin 0.6H, Aspartate Amino Transf (AST/SGOT) 19, Alanine Aminotransferase (ALT/SGPT) 6L, Alkaline Phosphatase 74, Total Protein 7.3, Albumin 2.0L, Globulin 5.3, Albumin/Globulin Ratio 0.4L Current Medications Medications (Trade) Dose Ordered Sig/Kalyn Route PRN Reason Start Time Stop Time Status Last Admin Dose Admin Albuterol/ Ipratropium (Albuterol/ Ipratropium) 3 ml Q4H PRN HHN Shortness of Breath 12/12/16 10:30 12/17/16 10:29 12/12/16 17:21 Allopurinol (Zyloprim) 100 mg DAILY ORAL 12/15/16 09:00 01/14/17 08:59 12/16/16 08:59 Cefepime HCl 1 gm/ Dextrose 55 ml @ 110 mls/hr Q24H IVPB 12/14/16 16:00 12/21/16 15:59 12/15/16 17:56 Chlorhexidine Gluconate (Marni-Hex 2%) 1 applic Q24H TOPIC 12/03/16 20:00 12/27/16 19:59 12/15/16 20:15 Diphenhydramine HCl (Benadryl) 25 mg Q6H PRN IVP Itching 12/03/16 15:00 12/19/16 14:59 Docusate Sodium (Colace) 100 mg TWICE A DAY GT 12/04/16 09:00 01/03/17 08:59 12/16/16 08:59 Epoetin Santos (Procrit (for non ESRD use)) 10,000 units TUE-TUE-TUE SUBQ 12/03/16 21:00 12/17/16 20:59 12/15/16 21:26 Midodrine (Pro-Amatine) 10 mg EVERY 8 HOURS GT 12/12/16 14:00 01/11/17 13:59 12/15/16 22:05 Polyethylene Glycol (Miralax) 17 gm BEDTIME ORAL 12/12/16 21:30 01/11/17 21:29 12/15/16 21:00 Ranitidine HCl (Zantac) 150 mg TWICE A DAY GT 12/05/16 18:00 01/04/17 17:59 12/16/16 08:58 ARASH MIRANDA Dec 16, 2016 11:35
--- NOTE | 2016-12-16 14:11 | Infectious Diseases Prog Note ---
Assessment/Plan Assessment/Plan Assesment: Probable VAP Scx : PSA and Providencia -CXR 12/13 : Pulmonary edema Leukocytosis , SP Cellulitis BLE and R arm- in the setting of chronic leg edema/venous stasis, s/ p Rx- Limited Venous duplex BLE (non diagnostic), no DVT R arm;Cellulitis resolved;Now residual venous stasis changes. -Bcx Neg Anasarca/ bilateral leg lymphedema VRE colonzied GT site : Wnd Cx : Morg M, Providencia ( Colonizer ) Anemia COPD Diastolic CHF Renal insufficiency- acute on chronic- started on HD 11/24 chronic resp failure, vent/trach dependent Gtbue pAfib pleural effusion MINA CKD GERD morbid obesity [facility] resident Plan: cont pt on Cefepime d# IV Vancomycin 11/11-11/12; 11/17-11/26 IV Cefepime 11/11-11/12 IV Ancef 11/12-11/28 Flagyl x1 11/11 monitor C-xray -extremity elevation -edema management -Monitor CBC/BMP, - vent support, trach care, aspiration precautions Subjective Allergies: Coded Allergies: AMOXICILLIN (Verified Allergy, Mild, RASH, 09/30/16) PENICILLINS (Unverified Allergy, Unknown, 09/30/16) Subjective Afebrile Objective Vital Signs Last 24 Hour Vital Signs Date Time Temp Pulse Resp B/P (MAP) Pulse Ox O2 Delivery O2 Flow Rate FiO2 12/16/16 13:24 67 18 50 12/16/16 12:17 71 12/16/16 12:00 97.8 71 18 108/60 99 Mechanical Ventilator 50 12/16/16 12:00 50 12/16/16 11:12 86 18 50 12/16/16 08:41 85 18 50 12/16/16 08:00 74 12/16/16 08:00 97.8 78 18 110/58 97 Mechanical Ventilator 50 12/16/16 08:00 50 12/16/16 07:13 64 18 50 12/16/16 06:16 98.1 75 20 119/83 97 Mechanical Ventilator 50 12/16/16 05:07 85 25 50 12/16/16 04:00 71 12/16/16 04:00 98.3 85 19 110/60 95 Mechanical Ventilator 50 12/16/16 04:00 50 12/16/16 02:56 82 23 50 12/16/16 01:26 69 18 50 12/16/16 00:00 70 12/16/16 00:00 98.1 85 18 120/61 95 Mechanical Ventilator 50 12/16/16 00:00 50 12/15/16 23:07 71 18 50 12/15/16 21:10 73 18 50 12/15/16 20:00 67 12/15/16 20:00 99.8 84 18 114/57 93 Mechanical Ventilator 50 12/15/16 20:00 50 12/15/16 19:26 71 18 50 12/15/16 16:44 72 18 50 12/15/16 16:00 50 12/15/16 16:00 67 12/15/16 16:00 98.1 70 18 118/48 95 Mechanical Ventilator 50 12/15/16 14:51 75 18 50 Height (Feet): 5 Height (Inches): 3.00 Weight (Pounds): 381 HEENT: anicteric Respiratory/Chest: normal breath sounds Cardiovascular: no gallop/murmur Abdomen: no organomegaly Laboratory Tests Test 12/16/16 03:55 White Blood Count 8.7 K/UL (4.8-10.8) Red Blood Count 2.58 M/UL (4.20-5.40) L Hemoglobin 7.7 G/DL (12.0-16.0) L Hematocrit 26.4 % (37.0-47.0) L Mean Corpuscular Volume 102 FL (80-99) H Mean Corpuscular Hemoglobin 29.9 PG (27.0-31.0) Mean Corpuscular Hemoglobin Concent 29.2 G/DL (32.0-36.0) L Red Cell Distribution Width 20.3 % (11.6-14.8) H Platelet Count 218 K/UL (150-450) Mean Platelet Volume 5.3 FL (6.5-10.1) L Neutrophils (%) (Auto) % (45.0-75.0) Lymphocytes (%) (Auto) % (20.0-45.0) Monocytes (%) (Auto) % (1.0-10.0) Eosinophils (%) (Auto) % (0.0-3.0) Basophils (%) (Auto) % (0.0-2.0) Differential Total Cells Counted 100 Neutrophils % (Manual) 70 % (45-75) Lymphocytes % (Manual) 15 % (20-45) L Monocytes % (Manual) 12 % (1-10) H Eosinophils % (Manual) 2 % (0-3) Basophils % (Manual) 1 % (0-2) Band Neutrophils 0 % (0-8) Platelet Estimate Adequate Platelet Morphology Normal Hypochromasia 3+ Anisocytosis 3+ Macrocytosis 1+ Sodium Level 142 MMOL/L (136-145) Potassium Level 3.5 MMOL/L (3.5-5.1) Chloride Level 99 MMOL/L (98-107) Carbon Dioxide Level 34 MMOL/L (21-32) H Anion Gap 10 mmol/L (5-15) Blood Urea Nitrogen 24 mg/dL (7-18) H Creatinine 3.5 MG/DL (0.55-1.30) H Estimat Glomerular Filtration Rate mL/min (>60) Glucose Level 98 MG/DL (74-106) Calcium Level 8.4 MG/DL (8.5-10.1) L Total Bilirubin 1.4 MG/DL (0.2-1.0) H Direct Bilirubin 0.6 MG/DL (0.0-0.3) H Aspartate Amino Transf (AST/SGOT) 19 U/L (15-37) Alanine Aminotransferase (ALT/SGPT) 6 U/L (12-78) L Alkaline Phosphatase 74 U/L (46-116) Total Protein 7.3 G/DL (6.4-8.2) Albumin 2.0 G/DL (3.4-5.0) L Globulin 5.3 g/dL Albumin/Globulin Ratio 0.4 (1.0-2.7) L Current Medications Medications (Trade) Dose Ordered Sig/Kalyn Route PRN Reason Start Time Stop Time Status Last Admin Dose Admin Albuterol/ Ipratropium (Albuterol/ Ipratropium) 3 ml Q4H PRN HHN Shortness of Breath 12/12/16 10:30 12/17/16 10:29 12/12/16 17:21 Allopurinol (Zyloprim) 100 mg DAILY ORAL 12/15/16 09:00 01/14/17 08:59 12/16/16 08:59 Cefepime HCl 1 gm/ Dextrose 55 ml @ 110 mls/hr Q24H IVPB 12/14/16 16:00 12/21/16 15:59 12/15/16 17:56 Chlorhexidine Gluconate (Marni-Hex 2%) 1 applic Q24H TOPIC 12/03/16 20:00 12/27/16 19:59 12/15/16 20:15 Diphenhydramine HCl (Benadryl) 25 mg Q6H PRN IVP Itching 12/03/16 15:00 12/19/16 14:59 Docusate Sodium (Colace) 100 mg TWICE A DAY GT 12/04/16 09:00 01/03/17 08:59 12/16/16 08:59 Epoetin Santos (Procrit (for non ESRD use)) 10,000 units TUE-TUE-TUE SUBQ 12/03/16 21:00 12/17/16 20:59 12/15/16 21:26 Midodrine (Pro-Amatine) 10 mg EVERY 8 HOURS GT 12/12/16 14:00 01/11/17 13:59 12/15/16 22:05 Polyethylene Glycol (Miralax) 17 gm BEDTIME ORAL 12/12/16 21:30 01/11/17 21:29 12/15/16 21:00 Ranitidine HCl (Zantac) 150 mg TWICE A DAY GT 12/05/16 18:00 01/04/17 17:59 12/16/16 08:58 LINDSEY HILL M.D. Dec 16, 2016 14:11
--- NOTE | 2016-12-16 16:19 | Nephrology Progress Note ---
Assessment/Plan Problem List: (1) Renal failure Assessment: CKD + ACUTE (2) Acute and chronic respiratory failure (3) CHF (congestive heart failure) (4) Morbid obesity (5) Atrial fibrillation Assessment Stable from renal stand CKD- and acute renal failure - Acute respiratory failure s/p Trach Obese COPD , CHF, Diastolic MINA UTI Anemia GI Bleed, GI bleeding At Fib Pulm HTN h/o Low B12 Plan Plan: Now has PEG- HD 12/16 next K supplement as needed on EPOGEN 24 H urine collection in process: CrCl 6 Monitor renal parameters- optimize cardiac and pulm status pulmonary support- transfuse as needed ? DC planning post PEG, placement is complicated Subjective ROS Limited/Unobtainable: No Constitutional: Reports: malaise Objective Objective Last 24 Hour Vital Signs Date Time Temp Pulse Resp B/P (MAP) Pulse Ox O2 Delivery O2 Flow Rate FiO2 12/16/16 14:55 67 18 50 12/16/16 13:24 67 18 50 12/16/16 12:17 71 12/16/16 12:00 97.8 71 18 108/60 99 Mechanical Ventilator 50 12/16/16 12:00 50 12/16/16 11:12 86 18 50 12/16/16 08:41 85 18 50 12/16/16 08:00 74 12/16/16 08:00 97.8 78 18 110/58 97 Mechanical Ventilator 50 12/16/16 08:00 50 12/16/16 07:13 64 18 50 12/16/16 06:16 98.1 75 20 119/83 97 Mechanical Ventilator 50 12/16/16 05:07 85 25 50 12/16/16 04:00 71 12/16/16 04:00 98.3 85 19 110/60 95 Mechanical Ventilator 50 12/16/16 04:00 50 12/16/16 02:56 82 23 50 12/16/16 01:26 69 18 50 12/16/16 00:00 70 12/16/16 00:00 98.1 85 18 120/61 95 Mechanical Ventilator 50 12/16/16 00:00 50 12/15/16 23:07 71 18 50 12/15/16 21:10 73 18 50 12/15/16 20:00 67 12/15/16 20:00 99.8 84 18 114/57 93 Mechanical Ventilator 50 12/15/16 20:00 50 12/15/16 19:26 71 18 50 12/15/16 16:44 72 18 50 Intake and Output 12/16/16 12/17/16 19:00 07:00 Intake Total 340 ml Balance 340 ml Free Water 100 ml Tube Feeding 240 ml # Voids 1 # Bowel Movements 3 Laboratory Tests 12/16/16 03:55: White Blood Count 8.7, Red Blood Count 2.58L, Hemoglobin 7.7L, Hematocrit 26.4L , Mean Corpuscular Volume 102H, Mean Corpuscular Hemoglobin 29.9, Mean Corpuscular Hemoglobin Concent 29.2L, Red Cell Distribution Width 20.3H, Platelet Count 218, Mean Platelet Volume 5.3L, Neutrophils (%) (Auto) , Lymphocytes (%) (Auto) , Monocytes (%) (Auto) , Eosinophils (%) (Auto) , Basophils (%) (Auto) , Differential Total Cells Counted 100, Neutrophils % ( Manual) 70, Lymphocytes % (Manual) 15L, Monocytes % (Manual) 12H, Eosinophils % (Manual) 2, Basophils % (Manual) 1, Band Neutrophils 0, Platelet Estimate Adequate, Platelet Morphology Normal, Hypochromasia 3+, Anisocytosis 3+, Macrocytosis 1+, Sodium Level 142, Potassium Level 3.5, Chloride Level 99, Carbon Dioxide Level 34H, Anion Gap 10, Blood Urea Nitrogen 24H, Creatinine 3.5H , Estimat Glomerular Filtration Rate , Glucose Level 98, Calcium Level 8.4L, Total Bilirubin 1.4H, Direct Bilirubin 0.6H, Aspartate Amino Transf (AST/SGOT) 19, Alanine Aminotransferase (ALT/SGPT) 6L, Alkaline Phosphatase 74, Total Protein 7.3, Albumin 2.0L, Globulin 5.3, Albumin/Globulin Ratio 0.4L Height (Feet): 5 Height (Inches): 3.00 Weight (Pounds): 381 General Appearance: no apparent distress Cardiovascular: normal rate Respiratory/Chest: decreased breath sounds Abdomen: soft Objective edema COURTNEY Sanches Dec 16, 2016 16:19
--- NOTE | 2016-12-16 16:38 | General Progress Note ---
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 INR improving. Continue to monitor #. Anemia secondary to chronic disease. Continue to closely monitor. Work up reviewed --> s/p multiple transfusions. watch counts, transfuse if hgb is below 7. --> ferritin is pending # Positive occult blood. r/o gi bleed. gi following #. Anemia of kidney disease. Nephrology service following #. PEG tube placement #. Chronic ventilator dependent #. Permanent atrial fibrillation. #. Cellulitis and chronic lymphedema of the bilateral lower extremities. #. Congestive heart failure. Subjective ROS Limited/Unobtainable: Yes Allergies: Coded Allergies: AMOXICILLIN (Verified Allergy, Mild, RASH, 09/30/16) PENICILLINS (Unverified Allergy, Unknown, 09/30/16) Objective Last 24 Hour Vital Signs Date Time Temp Pulse Resp B/P (MAP) Pulse Ox O2 Delivery O2 Flow Rate FiO2 12/16/16 16:24 70 12/16/16 16:00 50 12/16/16 14:55 67 18 50 12/16/16 13:24 67 18 50 12/16/16 12:17 71 12/16/16 12:00 97.8 71 18 108/60 99 Mechanical Ventilator 50 12/16/16 12:00 50 12/16/16 11:12 86 18 50 12/16/16 08:41 85 18 50 12/16/16 08:00 74 12/16/16 08:00 97.8 78 18 110/58 97 Mechanical Ventilator 50 12/16/16 08:00 50 12/16/16 07:13 64 18 50 12/16/16 06:16 98.1 75 20 119/83 97 Mechanical Ventilator 50 12/16/16 05:07 85 25 50 12/16/16 04:00 71 12/16/16 04:00 98.3 85 19 110/60 95 Mechanical Ventilator 50 12/16/16 04:00 50 12/16/16 02:56 82 23 50 12/16/16 01:26 69 18 50 12/16/16 00:00 70 12/16/16 00:00 98.1 85 18 120/61 95 Mechanical Ventilator 50 12/16/16 00:00 50 12/15/16 23:07 71 18 50 12/15/16 21:10 73 18 50 12/15/16 20:00 67 12/15/16 20:00 99.8 84 18 114/57 93 Mechanical Ventilator 50 12/15/16 20:00 50 12/15/16 19:26 71 18 50 12/15/16 16:44 72 18 50 Intake and Output 12/16/16 12/17/16 19:00 07:00 Intake Total 340 ml Balance 340 ml Free Water 100 ml Tube Feeding 240 ml # Voids 1 # Bowel Movements 4 Laboratory Tests 12/16/16 03:55: White Blood Count 8.7, Red Blood Count 2.58L, Hemoglobin 7.7L, Hematocrit 26.4L , Mean Corpuscular Volume 102H, Mean Corpuscular Hemoglobin 29.9, Mean Corpuscular Hemoglobin Concent 29.2L, Red Cell Distribution Width 20.3H, Platelet Count 218, Mean Platelet Volume 5.3L, Neutrophils (%) (Auto) , Lymphocytes (%) (Auto) , Monocytes (%) (Auto) , Eosinophils (%) (Auto) , Basophils (%) (Auto) , Differential Total Cells Counted 100, Neutrophils % ( Manual) 70, Lymphocytes % (Manual) 15L, Monocytes % (Manual) 12H, Eosinophils % (Manual) 2, Basophils % (Manual) 1, Band Neutrophils 0, Platelet Estimate Adequate, Platelet Morphology Normal, Hypochromasia 3+, Anisocytosis 3+, Macrocytosis 1+, Sodium Level 142, Potassium Level 3.5, Chloride Level 99, Carbon Dioxide Level 34H, Anion Gap 10, Blood Urea Nitrogen 24H, Creatinine 3.5H , Estimat Glomerular Filtration Rate , Glucose Level 98, Calcium Level 8.4L, Total Bilirubin 1.4H, Direct Bilirubin 0.6H, Aspartate Amino Transf (AST/SGOT) 19, Alanine Aminotransferase (ALT/SGPT) 6L, Alkaline Phosphatase 74, Total Protein 7.3, Albumin 2.0L, Globulin 5.3, Albumin/Globulin Ratio 0.4L Height (Feet): 5 Height (Inches): 3.00 Weight (Pounds): 381 General Appearance: no apparent distress EENT: normal ENT inspection Respiratory/Chest: decreased breath sounds Abdomen: hypoactive bowel sounds Neurologic: disoriented, unresponsive Skin: warm/dry Serafin Haines Dec 16, 2016 16:38
--- NOTE | 2016-12-16 19:33 | Cardiology Progress Note ---
Assessment/Plan Assessment/Plan 1. Permanent atrial fibrillation. 2. Chronic respiratory failure, on a mechanical ventilator. 3. Cor pulmonale. 4. Pulmonary hypertension. 5. Acute renal failure, now on dialysis. 6. Anemia. 7. Significant edema. 8. Hypoalbuminemia. 9. stool ob + bp ok today on vent is gettign dialysis now remain in afib tele reviewed planned 2 liter removal stool ob + no anticoagulation for now await transfer to [facility] facility with vent capacity anemic agian Subjective Cardiovascular: Denies: chest pain, irregular heart rate, lightheadedness, palpitations Respiratory: Denies: shortness of breath Gastrointestinal/Abdominal: Denies: abdominal pain Genitourinary: Denies: burning Subjective on the vent awake Objective Last 24 Hour Vital Signs Date Time Temp Pulse Resp B/P (MAP) Pulse Ox O2 Delivery O2 Flow Rate FiO2 12/16/16 18:50 78 18 50 12/16/16 17:25 73 18 50 12/16/16 16:24 70 12/16/16 16:00 50 12/16/16 16:00 97.8 73 18 106/50 100 Mechanical Ventilator 50 12/16/16 14:55 67 18 50 12/16/16 13:24 67 18 50 12/16/16 12:17 71 12/16/16 12:00 97.8 71 18 108/60 99 Mechanical Ventilator 50 12/16/16 12:00 50 12/16/16 11:12 86 18 50 12/16/16 08:41 85 18 50 12/16/16 08:00 74 12/16/16 08:00 97.8 78 18 110/58 97 Mechanical Ventilator 50 12/16/16 08:00 50 12/16/16 07:13 64 18 50 12/16/16 06:16 98.1 75 20 119/83 97 Mechanical Ventilator 50 12/16/16 05:07 85 25 50 12/16/16 04:00 71 12/16/16 04:00 98.3 85 19 110/60 95 Mechanical Ventilator 50 12/16/16 04:00 50 12/16/16 02:56 82 23 50 12/16/16 01:26 69 18 50 12/16/16 00:00 70 12/16/16 00:00 98.1 85 18 120/61 95 Mechanical Ventilator 50 12/16/16 00:00 50 12/15/16 23:07 71 18 50 12/15/16 21:10 73 18 50 12/15/16 20:00 67 12/15/16 20:00 99.8 84 18 114/57 93 Mechanical Ventilator 50 12/15/16 20:00 50 General Appearance: alert, on vent, patient on isolation Neck: supple Cardiovascular: irregularly irregular Respiratory/Chest: lungs clear - ant Abdomen: non tender, soft Extremities: severe edema Intake and Output 12/16/16 12/17/16 19:00 07:00 Intake Total 480 ml Balance 480 ml Free Water 150 ml Tube Feeding 330 ml # Voids 1 # Bowel Movements 4 Laboratory Tests Test 12/16/16 03:55 White Blood Count 8.7 K/UL (4.8-10.8) Red Blood Count 2.58 M/UL (4.20-5.40) L Hemoglobin 7.7 G/DL (12.0-16.0) L Hematocrit 26.4 % (37.0-47.0) L Mean Corpuscular Volume 102 FL (80-99) H Mean Corpuscular Hemoglobin 29.9 PG (27.0-31.0) Mean Corpuscular Hemoglobin Concent 29.2 G/DL (32.0-36.0) L Red Cell Distribution Width 20.3 % (11.6-14.8) H Platelet Count 218 K/UL (150-450) Mean Platelet Volume 5.3 FL (6.5-10.1) L Neutrophils (%) (Auto) % (45.0-75.0) Lymphocytes (%) (Auto) % (20.0-45.0) Monocytes (%) (Auto) % (1.0-10.0) Eosinophils (%) (Auto) % (0.0-3.0) Basophils (%) (Auto) % (0.0-2.0) Differential Total Cells Counted 100 Neutrophils % (Manual) 70 % (45-75) Lymphocytes % (Manual) 15 % (20-45) L Monocytes % (Manual) 12 % (1-10) H Eosinophils % (Manual) 2 % (0-3) Basophils % (Manual) 1 % (0-2) Band Neutrophils 0 % (0-8) Platelet Estimate Adequate Platelet Morphology Normal Hypochromasia 3+ Anisocytosis 3+ Macrocytosis 1+ Sodium Level 142 MMOL/L (136-145) Potassium Level 3.5 MMOL/L (3.5-5.1) Chloride Level 99 MMOL/L (98-107) Carbon Dioxide Level 34 MMOL/L (21-32) H Anion Gap 10 mmol/L (5-15) Blood Urea Nitrogen 24 mg/dL (7-18) H Creatinine 3.5 MG/DL (0.55-1.30) H Estimat Glomerular Filtration Rate mL/min (>60) Glucose Level 98 MG/DL (74-106) Calcium Level 8.4 MG/DL (8.5-10.1) L Ferritin 1243 NG/ML (8-388) H Total Bilirubin 1.4 MG/DL (0.2-1.0) H Direct Bilirubin 0.6 MG/DL (0.0-0.3) H Aspartate Amino Transf (AST/SGOT) 19 U/L (15-37) Alanine Aminotransferase (ALT/SGPT) 6 U/L (12-78) L Alkaline Phosphatase 74 U/L (46-116) Total Protein 7.3 G/DL (6.4-8.2) Albumin 2.0 G/DL (3.4-5.0) L Globulin 5.3 g/dL Albumin/Globulin Ratio 0.4 (1.0-2.7) L BRIANA TELLES Dec 16, 2016 19:33
--- NOTE | 2016-12-16 20:13 | General Progress Note ---
Assessment/Plan Assessment/Plan This is a 76-year-old, morbidly obese female, admitted with anasarca and cellulitis of the lower leg. The patient was admitted to the directr observation unit on the monitor with the following medical problems. now transfered to icu as of 11-14-16, co of pruritis 1. Anasarca. She appears to be markedly swollen. She will need diuresis. Place the patient on Lasix 20 mg intravenous for now q.12 hours. Cardiology and Pulmonary on the case. We will follow orders. Check laboratory studies daily. Lasix drip was discontinued in am, HD started 2. Chronic hypercapnic respiratory failure. Continue with vent support per Pulmonary. will discuss with pulmonary regarding trach issues 3 anemia. s./p transfusion of PRBC Continue monitoring CBC daily. patient to start Procrit per nephrology 4. Pulmonary hypertension. hold Eliquis as patient is ob positive 5. Chronic kidney disease. On HD for now per nephrology. 6. DVT prophylaxis. scds 7. nutrition: patient didn't tolerate NGT placement, patient is now s/p PEG placement, tolerating tube feeding 8. Alkalosis: resolved 9. Generalized anxiety: Ativan prn, counselled for 15min 10. constipation: prn enema, continue with Colace and MiraLAX had revision of trach on 11-23-16 11. Anemia: finished transfusion of one unit of PRBC 12/13/16 12. abdominal Pain: probable constipation, will order Miralax and colace fu serial abdominal exams, am labs 13. leg blisster: Xeroform dressing 14. VTE prophylaxis: SCDs Benadryl 25 mg iv q 6 prn itching tolerating tube feeding continue HD per nephrology trach revision done by Dr. Powell transfused one unit of PRBC on 12-13-16, 12-14-16 discussed with nursing staff HD per nephrology swallow study tomorrow pt ot HD today, may need blood transfusion soon awaiting transfer to subacute hospital such as [facility] Subjective Date patient seen: Dec 16, 2016 Allergies: Coded Allergies: AMOXICILLIN (Verified Allergy, Mild, RASH, 09/30/16) PENICILLINS (Unverified Allergy, Unknown, 09/30/16) All Systems: reviewed and negative except above Subjective had transfusion of one unit of PRBC for anemia again today Objective Last 24 Hour Vital Signs Date Time Temp Pulse Resp B/P (MAP) Pulse Ox O2 Delivery O2 Flow Rate FiO2 12/16/16 18:50 78 18 50 12/16/16 17:25 73 18 50 12/16/16 16:24 70 12/16/16 16:00 50 12/16/16 16:00 97.8 73 18 106/50 100 Mechanical Ventilator 50 12/16/16 14:55 67 18 50 12/16/16 13:24 67 18 50 12/16/16 12:17 71 12/16/16 12:00 97.8 71 18 108/60 99 Mechanical Ventilator 50 12/16/16 12:00 50 12/16/16 11:12 86 18 50 12/16/16 08:41 85 18 50 12/16/16 08:00 74 12/16/16 08:00 97.8 78 18 110/58 97 Mechanical Ventilator 50 12/16/16 08:00 50 12/16/16 07:13 64 18 50 12/16/16 06:16 98.1 75 20 119/83 97 Mechanical Ventilator 50 12/16/16 05:07 85 25 50 12/16/16 04:00 71 12/16/16 04:00 98.3 85 19 110/60 95 Mechanical Ventilator 50 12/16/16 04:00 50 12/16/16 02:56 82 23 50 12/16/16 01:26 69 18 50 12/16/16 00:00 70 12/16/16 00:00 98.1 85 18 120/61 95 Mechanical Ventilator 50 12/16/16 00:00 50 12/15/16 23:07 71 18 50 12/15/16 21:10 73 18 50 Intake and Output 12/16/16 12/17/16 19:00 07:00 Intake Total 480 ml Balance 480 ml Free Water 150 ml Tube Feeding 330 ml # Voids 1 # Bowel Movements 4 Laboratory Tests 12/16/16 03:55: White Blood Count 8.7, Red Blood Count 2.58L, Hemoglobin 7.7L, Hematocrit 26.4L , Mean Corpuscular Volume 102H, Mean Corpuscular Hemoglobin 29.9, Mean Corpuscular Hemoglobin Concent 29.2L, Red Cell Distribution Width 20.3H, Platelet Count 218, Mean Platelet Volume 5.3L, Neutrophils (%) (Auto) , Lymphocytes (%) (Auto) , Monocytes (%) (Auto) , Eosinophils (%) (Auto) , Basophils (%) (Auto) , Differential Total Cells Counted 100, Neutrophils % ( Manual) 70, Lymphocytes % (Manual) 15L, Monocytes % (Manual) 12H, Eosinophils % (Manual) 2, Basophils % (Manual) 1, Band Neutrophils 0, Platelet Estimate Adequate, Platelet Morphology Normal, Hypochromasia 3+, Anisocytosis 3+, Macrocytosis 1+, Sodium Level 142, Potassium Level 3.5, Chloride Level 99, Carbon Dioxide Level 34H, Anion Gap 10, Blood Urea Nitrogen 24H, Creatinine 3.5H , Estimat Glomerular Filtration Rate , Glucose Level 98, Calcium Level 8.4L, Ferritin 1243H, Total Bilirubin 1.4H, Direct Bilirubin 0.6H, Aspartate Amino Transf (AST/SGOT) 19, Alanine Aminotransferase (ALT/SGPT) 6L, Alkaline Phosphatase 74, Total Protein 7.3, Albumin 2.0L, Globulin 5.3, Albumin/Globulin Ratio 0.4L Height (Feet): 5 Height (Inches): 3.00 Weight (Pounds): 381 General Appearance: morbidly obese EENT: PERRL/EOMI, pharynx normal Neck: non-tender, supple Cardiovascular: normal rate, regular rhythm, no gallop/murmur, no JVD Respiratory/Chest: decreased breath sounds Abdomen: distended Extremities: swelling Edema: 4+ Arm (L), 3+ Arm (R), 3+ Leg (L), 3+ Leg (R), 3+ Pedal (L), 3+ Pedal ( R), 3+ Generalized 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
[2016-12-16] MEDS: Miralax 17gm pkt ORAL SCH (21:00)
[2016-12-16] MEDS: Dyna-Hex 2% Top Sol 2oz TOPIC SCH (21:52)
[2016-12-16] MEDS ORDERED: Cefepime 1gm/D5W 55ml IVPB SCH ×2 (22:00)
[2016-12-17] VITALS: BP 110/62
[2016-12-17 04:00] VITALS: BP 116/58
[2016-12-17 05:39] LABS: MEAN CORPUSCULAR HEMOGLOBIN 29.9 PG (27.0-31.0); MEAN CORPUSCULAR HGB CONC 28.8 G/DL (32.0-36.0); MEAN CORPUSCULAR VOLUME 104 FL (80-99); MEAN PLATELET VOLUME 5.5 FL (6.5-10.1); PLATELET COUNT 210 K/UL (150-450); RED BLOOD COUNT 2.55 M/UL (4.20-5.40); RED CELL DISTRIBUTION WIDTH 19.9 % (11.6-14.8); WHITE BLOOD COUNT 7.9 K/UL (4.8-10.8)
[2016-12-17] MEDS: Midodrine 10mg tab GT SCH ×3 (06:00→22:01)
[2016-12-17 06:07] LABS: ALANINE AMINOTRANSFERASE < 6 U/L (12-78); ALBUMIN/GLOBULIN RATIO 0.4 (1.0-2.7); ANION GAP 9 mmol/L (5-15); ASPARTATE AMINO TRANSFERASE 20 U/L (15-37); CALCIUM 8.2 MG/DL (8.5-10.1); CARBON DIOXIDE 34 MMOL/L (21-32); CHLORIDE 101 MMOL/L (98-107); CREATININE 2.7 MG/DL (0.55-1.30); POTASSIUM 3.3 MMOL/L (3.5-5.1); SODIUM 143 MMOL/L (136-145); TOTAL PROTEIN 7.3 G/DL (6.4-8.2)
[2016-12-17 06:17] LABS: BILIRUBIN,DIRECT 0.7 MG/DL (0.0-0.3)
[2016-12-17 08:00] VITALS: BP 113/67
[2016-12-17 08:25] LABS: EOSINOPHILS % (MANUAL) 2 % (0-3); LYMPHOCYTES % (MANUAL) 19 % (20-45); NEUTROPHILS % (MANUAL) 71 % (45-75); TOTAL CELLS COUNTED 100
[2016-12-17 08:26] LABS: BAND NEUTROPHILS % (MANUAL) 0 % (0-8); BASOPHILS % (MANUAL) 0 % (0-2); PLATELET ESTIMATE ADEQUATE; PLATELET MORPHOLOGY NORMAL
[2016-12-17] MEDS: Docusate 100mg/10ml Liq GT SCH ×2 (09:05→18:00)
[2016-12-17] MEDS: Allopurinol 100mg Tab ORAL SCH (09:05)
--- NOTE | 2016-12-17 10:04 | Pulmonology Progress Note ---
Assessment/Plan Problems: (1) Chronic respiratory failure (2) Anasarca (3) ATN (acute tubular necrosis) (4) Anemia (5) Peripheral edema (6) Pickwickian syndrome (7) MINA (obstructive sleep apnea) (8) Morbid obesity Respiratory: monitor respiratory rate, adjust FIO2, CXR Cardiac: continue to monitor HR/BP Renal: F/U I&O, keep IV fluid, check electrolytes Infectious Disease: check cultures, continue antibiotics Gastrointestinal: continue feedings/current rate Endocrine: monitor blood sugar, continue sliding scale insulin Hematologic: monitor H/H, transfuse if hgb<8.5 Neurologic: PRN Ativan, PRN Morphine, keep patient comfortable Affect: PRN ativan Notes Reviewed: router setter, cardio, renal 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: nurses, consultants, corrections caseworker Subjective ROS Limited/Unobtainable: No Constitutional: Reports: no symptoms HEENT: Repors: no symptoms Respiratory: Reports: no symptoms Allergies: Coded Allergies: AMOXICILLIN (Verified Allergy, Mild, RASH, 09/30/16) PENICILLINS (Unverified Allergy, Unknown, 09/30/16) Objective Last 24 Hour Vital Signs Date Time Temp Pulse Resp B/P (MAP) Pulse Ox O2 Delivery O2 Flow Rate FiO2 12/17/16 08:58 75 18 50 12/17/16 08:00 73 12/17/16 08:00 97.9 71 18 113/67 98 Mechanical Ventilator 50 12/17/16 08:00 50 12/17/16 06:43 73 18 50 12/17/16 05:20 71 18 50 12/17/16 04:00 98.4 67 18 116/58 98 Mechanical Ventilator 50 12/17/16 04:00 50 12/17/16 04:00 70 12/17/16 02:45 77 18 50 12/17/16 00:59 72 18 50 12/17/16 00:00 69 12/17/16 00:00 98.5 68 20 110/62 99 Mechanical Ventilator 50 12/17/16 00:00 50 12/16/16 22:50 70 18 50 12/16/16 22:16 99.0 72 20 95/52 Mechanical Ventilator 12/16/16 22:14 Mechanical Ventilator 12/16/16 20:45 79 18 50 12/16/16 20:00 68 12/16/16 20:00 50 12/16/16 20:00 99.5 68 18 115/68 100 Mechanical Ventilator 50 12/16/16 18:50 78 18 50 12/16/16 17:50 Mechanical Ventilator 50.0 50 12/16/16 17:25 73 18 50 12/16/16 16:24 70 12/16/16 16:00 50 12/16/16 16:00 97.8 73 18 106/50 100 Mechanical Ventilator 50 12/16/16 14:55 67 18 50 12/16/16 13:24 67 18 50 12/16/16 12:17 71 12/16/16 12:00 97.8 71 18 108/60 99 Mechanical Ventilator 50 12/16/16 12:00 50 12/16/16 11:12 86 18 50 General Appearance: WD/WN HEENT: normocephalic, atraumatic Respiratory/Chest: chest wall non-tender, lungs clear Cardiovascular: normal peripheral pulses, normal rate Abdomen: normal bowel sounds, soft, non tender Genitourinary: normal external genitalia Extremities: no clubbing Skin: no lesions Neurologic/Psychiatric: 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 normal, no motor/sensory deficits Lymphatic: no neck adenopathy Laboratory Tests 12/17/16 04:15: White Blood Count 7.9, Red Blood Count 2.55L, Hemoglobin 7.6L, Hematocrit 26.5L , Mean Corpuscular Volume 104H, Mean Corpuscular Hemoglobin 29.9, Mean Corpuscular Hemoglobin Concent 28.8L, Red Cell Distribution Width 19.9H, Platelet Count 210, Mean Platelet Volume 5.5L, Neutrophils (%) (Auto) , Lymphocytes (%) (Auto) , Monocytes (%) (Auto) , Eosinophils (%) (Auto) , Basophils (%) (Auto) , Differential Total Cells Counted 100, Neutrophils % ( Manual) 71, Lymphocytes % (Manual) 19L, Monocytes % (Manual) 8, Eosinophils % ( Manual) 2, Basophils % (Manual) 0, Band Neutrophils 0, Platelet Estimate Adequate, Platelet Morphology Normal, Sodium Level 143, Potassium Level 3.3L, Chloride Level 101, Carbon Dioxide Level 34H, Anion Gap 9, Blood Urea Nitrogen 17, Creatinine 2.7H, Estimat Glomerular Filtration Rate , Glucose Level 85, Calcium Level 8.2L, Total Bilirubin 1.5H, Direct Bilirubin 0.7H, Aspartate Amino Transf (AST/SGOT) 20, Alanine Aminotransferase (ALT/SGPT) < 6L, Alkaline Phosphatase 73, Total Protein 7.3, Albumin 1.9L, Globulin 5.4, Albumin/Globulin Ratio 0.4L Current Medications Medications (Trade) Dose Ordered Sig/Kalyn Route PRN Reason Start Time Stop Time Status Last Admin Dose Admin Albuterol/ Ipratropium (Albuterol/ Ipratropium) 3 ml Q4H PRN HHN Shortness of Breath 12/12/16 10:30 12/17/16 10:29 12/12/16 17:21 Allopurinol (Zyloprim) 100 mg DAILY ORAL 12/15/16 09:00 01/14/17 08:59 12/17/16 09:05 Cefepime HCl 1 gm/ Dextrose 55 ml @ 110 mls/hr Q24H IVPB 12/16/16 22:00 12/17/16 23:59 12/16/16 21:52 Chlorhexidine Gluconate (Marni-Hex 2%) 1 applic Q24H TOPIC 12/03/16 20:00 12/27/16 19:59 12/16/16 21:52 Diphenhydramine HCl (Benadryl) 25 mg Q6H PRN IVP Itching 12/03/16 15:00 12/19/16 14:59 Docusate Sodium (Colace) 100 mg TWICE A DAY GT 12/04/16 09:00 01/03/17 08:59 12/17/16 09:05 Epoetin Santos (Procrit (for non ESRD use)) 10,000 units TUE-TUE-TUE SUBQ 12/03/16 21:00 12/17/16 20:59 12/15/16 21:26 Midodrine (Pro-Amatine) 10 mg EVERY 8 HOURS GT 12/12/16 14:00 01/11/17 13:59 12/16/16 14:13 Polyethylene Glycol (Miralax) 17 gm BEDTIME ORAL 12/12/16 21:30 01/11/17 21:29 12/15/16 21:00 Ranitidine HCl (Zantac) 150 mg DAILY GT 12/17/16 09:00 01/16/17 08:59 12/17/16 09:05 ARASH MIRANDA Dec 17, 2016 10:04
--- NOTE | 2016-12-17 10:59 | Infectious Diseases Prog Note ---
Assessment/Plan Assessment/Plan Assesment: Probable VAP Scx : PSA and Providencia, SP Rx -CXR 12/13 : Pulmonary edema Leukocytosis , SP Cellulitis BLE and R arm- in the setting of chronic leg edema/venous stasis, s/ p Rx- Limited Venous duplex BLE (non diagnostic), no DVT R arm;Cellulitis resolved;Now residual venous stasis changes. -Bcx Neg Anasarca/ bilateral leg lymphedema VRE colonzied GT site : Wnd Cx : Morg M, Providencia ( Colonizer ) Anemia COPD Diastolic CHF Renal insufficiency- acute on chronic- started on HD 11/24 chronic resp failure, vent/trach dependent Gtbue pAfib pleural effusion MINA CKD GERD morbid obesity [facility] resident Plan: DC Cefepime d# , and monitor pt off of AB Rx IV Vancomycin 11/11-11/12; 11/17-11/26 IV Cefepime 11/11-11/12 IV Ancef 11/12-11/28 Flagyl x1 11/11 monitor C-xray -extremity elevation -edema management -Monitor CBC/BMP, - vent support, trach care, aspiration precautions Subjective Constitutional: Denies: no symptoms, fever, chills, fatigue, anorexia, drenching sweats, other Allergies: Coded Allergies: AMOXICILLIN (Verified Allergy, Mild, RASH, 09/30/16) PENICILLINS (Unverified Allergy, Unknown, 09/30/16) Subjective Afebrile Objective Vital Signs Last 24 Hour Vital Signs Date Time Temp Pulse Resp B/P (MAP) Pulse Ox O2 Delivery O2 Flow Rate FiO2 12/17/16 08:58 75 18 50 12/17/16 08:00 73 12/17/16 08:00 97.9 71 18 113/67 98 Mechanical Ventilator 50 12/17/16 08:00 50 12/17/16 06:43 73 18 50 12/17/16 05:20 71 18 50 12/17/16 04:00 98.4 67 18 116/58 98 Mechanical Ventilator 50 12/17/16 04:00 50 12/17/16 04:00 70 12/17/16 02:45 77 18 50 12/17/16 00:59 72 18 50 12/17/16 00:00 69 12/17/16 00:00 98.5 68 20 110/62 99 Mechanical Ventilator 50 12/17/16 00:00 50 12/16/16 22:50 70 18 50 12/16/16 22:16 99.0 72 20 95/52 Mechanical Ventilator 12/16/16 22:14 Mechanical Ventilator 12/16/16 20:45 79 18 50 12/16/16 20:00 68 12/16/16 20:00 50 12/16/16 20:00 99.5 68 18 115/68 100 Mechanical Ventilator 50 12/16/16 18:50 78 18 50 12/16/16 17:50 Mechanical Ventilator 50.0 50 12/16/16 17:25 73 18 50 12/16/16 16:24 70 12/16/16 16:00 50 12/16/16 16:00 97.8 73 18 106/50 100 Mechanical Ventilator 50 12/16/16 14:55 67 18 50 12/16/16 13:24 67 18 50 12/16/16 12:17 71 12/16/16 12:00 97.8 71 18 108/60 99 Mechanical Ventilator 50 12/16/16 12:00 50 12/16/16 11:12 86 18 50 Height (Feet): 5 Height (Inches): 3.00 Weight (Pounds): 380 HEENT: atraumatic Respiratory/Chest: normal breath sounds Cardiovascular: regularly irregular Abdomen: no organomegaly Laboratory Tests Test 12/17/16 04:15 White Blood Count 7.9 K/UL (4.8-10.8) Red Blood Count 2.55 M/UL (4.20-5.40) L Hemoglobin 7.6 G/DL (12.0-16.0) L Hematocrit 26.5 % (37.0-47.0) L Mean Corpuscular Volume 104 FL (80-99) H Mean Corpuscular Hemoglobin 29.9 PG (27.0-31.0) Mean Corpuscular Hemoglobin Concent 28.8 G/DL (32.0-36.0) L Red Cell Distribution Width 19.9 % (11.6-14.8) H Platelet Count 210 K/UL (150-450) Mean Platelet Volume 5.5 FL (6.5-10.1) L Neutrophils (%) (Auto) % (45.0-75.0) Lymphocytes (%) (Auto) % (20.0-45.0) Monocytes (%) (Auto) % (1.0-10.0) Eosinophils (%) (Auto) % (0.0-3.0) Basophils (%) (Auto) % (0.0-2.0) Differential Total Cells Counted 100 Neutrophils % (Manual) 71 % (45-75) Lymphocytes % (Manual) 19 % (20-45) L Monocytes % (Manual) 8 % (1-10) Eosinophils % (Manual) 2 % (0-3) Basophils % (Manual) 0 % (0-2) Band Neutrophils 0 % (0-8) Platelet Estimate Adequate Platelet Morphology Normal Sodium Level 143 MMOL/L (136-145) Potassium Level 3.3 MMOL/L (3.5-5.1) L Chloride Level 101 MMOL/L (98-107) Carbon Dioxide Level 34 MMOL/L (21-32) H Anion Gap 9 mmol/L (5-15) Blood Urea Nitrogen 17 mg/dL (7-18) Creatinine 2.7 MG/DL (0.55-1.30) H Estimat Glomerular Filtration Rate mL/min (>60) Glucose Level 85 MG/DL (74-106) Calcium Level 8.2 MG/DL (8.5-10.1) L Total Bilirubin 1.5 MG/DL (0.2-1.0) H Direct Bilirubin 0.7 MG/DL (0.0-0.3) H Aspartate Amino Transf (AST/SGOT) 20 U/L (15-37) Alanine Aminotransferase (ALT/SGPT) < 6 U/L (12-78) L Alkaline Phosphatase 73 U/L (46-116) Total Protein 7.3 G/DL (6.4-8.2) Albumin 1.9 G/DL (3.4-5.0) L Globulin 5.4 g/dL Albumin/Globulin Ratio 0.4 (1.0-2.7) L Current Medications Medications (Trade) Dose Ordered Sig/Kalyn Route PRN Reason Start Time Stop Time Status Last Admin Dose Admin Allopurinol (Zyloprim) 100 mg DAILY ORAL 12/15/16 09:00 01/14/17 08:59 12/17/16 09:05 Cefepime HCl 1 gm/ Dextrose 55 ml @ 110 mls/hr Q24H IVPB 12/16/16 22:00 12/17/16 23:59 12/16/16 21:52 Chlorhexidine Gluconate (Marni-Hex 2%) 1 applic Q24H TOPIC 12/03/16 20:00 12/27/16 19:59 12/16/16 21:52 Diphenhydramine HCl (Benadryl) 25 mg Q6H PRN IVP Itching 12/03/16 15:00 12/19/16 14:59 Docusate Sodium (Colace) 100 mg TWICE A DAY GT 12/04/16 09:00 01/03/17 08:59 12/17/16 09:05 Epoetin Santos (Procrit (for non ESRD use)) 10,000 units TUE-TUE-TUE SUBQ 12/03/16 21:00 12/17/16 20:59 12/15/16 21:26 Midodrine (Pro-Amatine) 10 mg EVERY 8 HOURS GT 12/12/16 14:00 01/11/17 13:59 12/16/16 14:13 Polyethylene Glycol (Miralax) 17 gm BEDTIME ORAL 12/12/16 21:30 01/11/17 21:29 12/15/16 21:00 Ranitidine HCl (Zantac) 150 mg DAILY GT 12/17/16 09:00 01/16/17 08:59 12/17/16 09:05 LINDSEY HILL M.D. Dec 17, 2016 10:59
[2016-12-17] MEDS ORDERED: NS 275ml ONE (11:06)
[2016-12-17 12:00] VITALS: BP 101/53
--- NOTE | 2016-12-17 12:32 | Nephrology Progress Note ---
Assessment/Plan Problem List: (1) Renal failure Assessment: CKD + ACUTE (2) Acute and chronic respiratory failure (3) CHF (congestive heart failure) (4) Morbid obesity (5) Atrial fibrillation Assessment Stable from renal stand CKD- and acute renal failure - Acute respiratory failure s/p Trach Obese COPD , CHF, Diastolic MINA UTI Anemia GI Bleed, GI bleeding At Fib Pulm HTN h/o Low B12 Plan Plan: Now has PEG- HD last 12/16 K supplement as needed on EPOGEN 24 H urine collection in process: CrCl 6 Monitor renal parameters- optimize cardiac and pulm status pulmonary support- transfuse as needed ? DC planning post PEG, placement is complicated Subjective ROS Limited/Unobtainable: No Constitutional: Reports: malaise, weakness Objective Objective Last 24 Hour Vital Signs Date Time Temp Pulse Resp B/P (MAP) Pulse Ox O2 Delivery O2 Flow Rate FiO2 12/17/16 12:00 50 12/17/16 10:55 72 18 50 12/17/16 08:58 75 18 50 12/17/16 08:00 73 12/17/16 08:00 97.9 71 18 113/67 98 Mechanical Ventilator 50 12/17/16 08:00 50 12/17/16 06:43 73 18 50 12/17/16 05:20 71 18 50 12/17/16 04:00 98.4 67 18 116/58 98 Mechanical Ventilator 50 12/17/16 04:00 50 12/17/16 04:00 70 12/17/16 02:45 77 18 50 12/17/16 00:59 72 18 50 12/17/16 00:00 69 12/17/16 00:00 98.5 68 20 110/62 99 Mechanical Ventilator 50 12/17/16 00:00 50 12/16/16 22:50 70 18 50 12/16/16 22:16 99.0 72 20 95/52 Mechanical Ventilator 12/16/16 22:14 Mechanical Ventilator 12/16/16 20:45 79 18 50 12/16/16 20:00 68 12/16/16 20:00 50 12/16/16 20:00 99.5 68 18 115/68 100 Mechanical Ventilator 50 12/16/16 18:50 78 18 50 12/16/16 17:50 Mechanical Ventilator 50.0 50 12/16/16 17:25 73 18 50 12/16/16 16:24 70 12/16/16 16:00 50 12/16/16 16:00 97.8 73 18 106/50 100 Mechanical Ventilator 50 12/16/16 14:55 67 18 50 12/16/16 13:24 67 18 50 Laboratory Tests 12/17/16 04:15: White Blood Count 7.9, Red Blood Count 2.55L, Hemoglobin 7.6L, Hematocrit 26.5L , Mean Corpuscular Volume 104H, Mean Corpuscular Hemoglobin 29.9, Mean Corpuscular Hemoglobin Concent 28.8L, Red Cell Distribution Width 19.9H, Platelet Count 210, Mean Platelet Volume 5.5L, Neutrophils (%) (Auto) , Lymphocytes (%) (Auto) , Monocytes (%) (Auto) , Eosinophils (%) (Auto) , Basophils (%) (Auto) , Differential Total Cells Counted 100, Neutrophils % ( Manual) 71, Lymphocytes % (Manual) 19L, Monocytes % (Manual) 8, Eosinophils % ( Manual) 2, Basophils % (Manual) 0, Band Neutrophils 0, Platelet Estimate Adequate, Platelet Morphology Normal, Sodium Level 143, Potassium Level 3.3L, Chloride Level 101, Carbon Dioxide Level 34H, Anion Gap 9, Blood Urea Nitrogen 17, Creatinine 2.7H, Estimat Glomerular Filtration Rate , Glucose Level 85, Calcium Level 8.2L, Total Bilirubin 1.5H, Direct Bilirubin 0.7H, Aspartate Amino Transf (AST/SGOT) 20, Alanine Aminotransferase (ALT/SGPT) < 6L, Alkaline Phosphatase 73, Total Protein 7.3, Albumin 1.9L, Globulin 5.4, Albumin/Globulin Ratio 0.4L Height (Feet): 5 Height (Inches): 3.00 Weight (Pounds): 380 General Appearance: no apparent distress Respiratory/Chest: decreased breath sounds Abdomen: soft Objective edema andreias COURTNEY LOPEZ Dec 17, 2016 12:32
--- NOTE | 2016-12-17 13:48 | GI Progress Note ---
Assessment/Plan Problems: (1) Positive occult stool blood test ICD Codes: R19.5 - Other fecal abnormalities SNOMED: 48255048, 263562566 (2) Morbid obesity ICD Codes: E66.01 - Morbid (severe) obesity due to excess calories SNOMED: 496758845, 11625990597407 (3) Anemia ICD Codes: D64.9 - Anemia, unspecified SNOMED: 244172774 (4) PEG (percutaneous endoscopic gastrostomy) adjustment/replacement/removal ICD Codes: Z43.1 - Encounter for attention to gastrostomy SNOMED: 441644521, 320925366 Status: unchanged Status Narrative 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 Dr. Noriega. Assessment/Plan s/p PEG GTF per dietary at goal fu pulmonary recs bowel regime monitor H&H, prn transfusions ppi fu labs Subjective Subjective limited Objective Last 24 Hour Vital Signs Date Time Temp Pulse Resp B/P (MAP) Pulse Ox O2 Delivery O2 Flow Rate FiO2 12/17/16 12:30 66 18 50 12/17/16 12:00 50 12/17/16 12:00 98.1 73 18 101/53 100 Mechanical Ventilator 50 12/17/16 12:00 72 12/17/16 10:55 72 18 50 12/17/16 08:58 75 18 50 12/17/16 08:00 73 12/17/16 08:00 97.9 71 18 113/67 98 Mechanical Ventilator 50 12/17/16 08:00 50 12/17/16 06:43 73 18 50 12/17/16 05:20 71 18 50 12/17/16 04:00 98.4 67 18 116/58 98 Mechanical Ventilator 50 12/17/16 04:00 50 12/17/16 04:00 70 12/17/16 02:45 77 18 50 12/17/16 00:59 72 18 50 12/17/16 00:00 69 12/17/16 00:00 98.5 68 20 110/62 99 Mechanical Ventilator 50 12/17/16 00:00 50 12/16/16 22:50 70 18 50 12/16/16 22:16 99.0 72 20 95/52 Mechanical Ventilator 12/16/16 22:14 Mechanical Ventilator 12/16/16 20:45 79 18 50 12/16/16 20:00 68 11/9/17 20:00 50 12/16/16 20:00 99.5 68 18 115/68 100 Mechanical Ventilator 50 12/16/16 18:50 78 18 50 12/16/16 17:50 Mechanical Ventilator 50.0 50 12/16/16 17:25 73 18 50 12/16/16 16:24 70 12/16/16 16:00 50 12/16/16 16:00 97.8 73 18 106/50 100 Mechanical Ventilator 50 12/16/16 14:55 67 18 50 Laboratory Tests Test 12/17/16 04:15 White Blood Count 7.9 K/UL (4.8-10.8) Red Blood Count 2.55 M/UL (4.20-5.40) L Hemoglobin 7.6 G/DL (12.0-16.0) L Hematocrit 26.5 % (37.0-47.0) L Mean Corpuscular Volume 104 FL (80-99) H Mean Corpuscular Hemoglobin 29.9 PG (27.0-31.0) Mean Corpuscular Hemoglobin Concent 28.8 G/DL (32.0-36.0) L Red Cell Distribution Width 19.9 % (11.6-14.8) H Platelet Count 210 K/UL (150-450) Mean Platelet Volume 5.5 FL (6.5-10.1) L Neutrophils (%) (Auto) % (45.0-75.0) Lymphocytes (%) (Auto) % (20.0-45.0) Monocytes (%) (Auto) % (1.0-10.0) Eosinophils (%) (Auto) % (0.0-3.0) Basophils (%) (Auto) % (0.0-2.0) Differential Total Cells Counted 100 Neutrophils % (Manual) 71 % (45-75) Lymphocytes % (Manual) 19 % (20-45) L Monocytes % (Manual) 8 % (1-10) Eosinophils % (Manual) 2 % (0-3) Basophils % (Manual) 0 % (0-2) Band Neutrophils 0 % (0-8) Platelet Estimate Adequate Platelet Morphology Normal Sodium Level 143 MMOL/L (136-145) Potassium Level 3.3 MMOL/L (3.5-5.1) L Chloride Level 101 MMOL/L (98-107) Carbon Dioxide Level 34 MMOL/L (21-32) H Anion Gap 9 mmol/L (5-15) Blood Urea Nitrogen 17 mg/dL (7-18) Creatinine 2.7 MG/DL (0.55-1.30) H Estimat Glomerular Filtration Rate mL/min (>60) Glucose Level 85 MG/DL (74-106) Calcium Level 8.2 MG/DL (8.5-10.1) L Total Bilirubin 1.5 MG/DL (0.2-1.0) H Direct Bilirubin 0.7 MG/DL (0.0-0.3) H Aspartate Amino Transf (AST/SGOT) 20 U/L (15-37) Alanine Aminotransferase (ALT/SGPT) < 6 U/L (12-78) L Alkaline Phosphatase 73 U/L (46-116) Total Protein 7.3 G/DL (6.4-8.2) Albumin 1.9 G/DL (3.4-5.0) L Globulin 5.4 g/dL Albumin/Globulin Ratio 0.4 (1.0-2.7) L Height (Feet): 5 Height (Inches): 3.00 Weight (Pounds): 380 General Appearance: WD/WN, no apparent distress, alert Cardiovascular: normal rate Respiratory/Chest: normal breath sounds, no respiratory distress Abdominal Exam: normal bowel sounds, non tender, soft Extremities: non-tender Kateryna Sherman NKhadar Dec 17, 2016 13:48
[2016-12-17 16:00] VITALS: BP 111/47
--- NOTE | 2016-12-17 16:27 | General Progress Note ---
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 INR improving. Continue to monitor #. Anemia secondary to chronic disease. Continue to closely monitor. Work up reviewed --> s/p multiple transfusions. watch counts, transfuse if hgb is below 7. --> ferritin is elevated # Positive occult blood. r/o gi bleed. gi following #. Anemia of kidney disease. Nephrology service following #. PEG tube placement #. Chronic ventilator dependent #. Permanent atrial fibrillation. #. Cellulitis and chronic lymphedema of the bilateral lower extremities. #. Congestive heart failure. Subjective ROS Limited/Unobtainable: Yes Allergies: Coded Allergies: AMOXICILLIN (Verified Allergy, Mild, RASH, 09/30/16) PENICILLINS (Unverified Allergy, Unknown, 09/30/16) Subjective no events overnight Objective Last 24 Hour Vital Signs Date Time Temp Pulse Resp B/P (MAP) Pulse Ox O2 Delivery O2 Flow Rate FiO2 12/17/16 16:00 50 12/17/16 15:04 74 18 50 12/17/16 12:30 66 18 50 12/17/16 12:00 50 12/17/16 12:00 98.1 73 18 101/53 100 Mechanical Ventilator 50 12/17/16 12:00 72 12/17/16 10:55 72 18 50 12/17/16 08:58 75 18 50 12/17/16 08:00 73 12/17/16 08:00 97.9 71 18 113/67 98 Mechanical Ventilator 50 12/17/16 08:00 50 12/17/16 06:43 73 18 50 12/17/16 05:20 71 18 50 12/17/16 04:00 98.4 67 18 116/58 98 Mechanical Ventilator 50 12/17/16 04:00 50 12/17/16 04:00 70 12/17/16 02:45 77 18 50 12/17/16 00:59 72 18 50 12/17/16 00:00 69 12/17/16 00:00 98.5 68 20 110/62 99 Mechanical Ventilator 50 12/17/16 00:00 50 12/16/16 22:50 70 18 50 12/16/16 22:16 99.0 72 20 95/52 Mechanical Ventilator 12/16/16 22:14 Mechanical Ventilator 12/16/16 20:45 79 18 50 12/16/16 20:00 68 12/16/16 20:00 50 12/16/16 20:00 99.5 68 18 115/68 100 Mechanical Ventilator 50 12/16/16 18:50 78 18 50 12/16/16 17:50 Mechanical Ventilator 50.0 50 12/16/16 17:25 73 18 50 Laboratory Tests 12/17/16 04:15: White Blood Count 7.9, Red Blood Count 2.55L, Hemoglobin 7.6L, Hematocrit 26.5L , Mean Corpuscular Volume 104H, Mean Corpuscular Hemoglobin 29.9, Mean Corpuscular Hemoglobin Concent 28.8L, Red Cell Distribution Width 19.9H, Platelet Count 210, Mean Platelet Volume 5.5L, Neutrophils (%) (Auto) , Lymphocytes (%) (Auto) , Monocytes (%) (Auto) , Eosinophils (%) (Auto) , Basophils (%) (Auto) , Differential Total Cells Counted 100, Neutrophils % ( Manual) 71, Lymphocytes % (Manual) 19L, Monocytes % (Manual) 8, Eosinophils % ( Manual) 2, Basophils % (Manual) 0, Band Neutrophils 0, Platelet Estimate Adequate, Platelet Morphology Normal, Sodium Level 143, Potassium Level 3.3L, Chloride Level 101, Carbon Dioxide Level 34H, Anion Gap 9, Blood Urea Nitrogen 17, Creatinine 2.7H, Estimat Glomerular Filtration Rate , Glucose Level 85, Calcium Level 8.2L, Total Bilirubin 1.5H, Direct Bilirubin 0.7H, Aspartate Amino Transf (AST/SGOT) 20, Alanine Aminotransferase (ALT/SGPT) < 6L, Alkaline Phosphatase 73, Total Protein 7.3, Albumin 1.9L, Globulin 5.4, Albumin/Globulin Ratio 0.4L Height (Feet): 5 Height (Inches): 3.00 Weight (Pounds): 380 General Appearance: no apparent distress EENT: normal ENT inspection Cardiovascular: normal rate Respiratory/Chest: decreased breath sounds Extremities: non-tender Edema: trace edema Skin: normal pigmentation Serafin Haines Dec 17, 2016 16:27
--- NOTE | 2016-12-17 16:53 | Cardiology Progress Note ---
Assessment/Plan Assessment/Plan 1. Permanent atrial fibrillation. 2. Chronic respiratory failure, on a mechanical ventilator. 3. Cor pulmonale. 4. Pulmonary hypertension. 5. Acute renal failure, now on dialysis. 6. Anemia. 7. Significant edema. 8. Hypoalbuminemia. 9. stool ob + remain in afib tele reviewed planned 2 liter removal stool ob + no anticoagulation for now await transfer to long-term care facility with vent capacity anemic agian but stable nutritionla support Subjective ROS Limited/Unobtainable: Yes Subjective on the vent awake Objective Last 24 Hour Vital Signs Date Time Temp Pulse Resp B/P (MAP) Pulse Ox O2 Delivery O2 Flow Rate FiO2 12/17/16 16:00 83 12/17/16 16:00 50 12/17/16 15:04 74 18 50 12/17/16 12:30 66 18 50 12/17/16 12:00 50 12/17/16 12:00 98.1 73 18 101/53 100 Mechanical Ventilator 50 12/17/16 12:00 72 12/17/16 10:55 72 18 50 12/17/16 08:58 75 18 50 12/17/16 08:00 73 12/17/16 08:00 97.9 71 18 113/67 98 Mechanical Ventilator 50 12/17/16 08:00 50 12/17/16 06:43 73 18 50 12/17/16 05:20 71 18 50 12/17/16 04:00 98.4 67 18 116/58 98 Mechanical Ventilator 50 12/17/16 04:00 50 12/17/16 04:00 70 12/17/16 02:45 77 18 50 12/17/16 00:59 72 18 50 12/17/16 00:00 69 12/17/16 00:00 98.5 68 20 110/62 99 Mechanical Ventilator 50 12/17/16 00:00 50 12/16/16 22:50 70 18 50 12/16/16 22:16 99.0 72 20 95/52 Mechanical Ventilator 12/16/16 22:14 Mechanical Ventilator 12/16/16 20:45 79 18 50 12/16/16 20:00 68 12/16/16 20:00 50 12/16/16 20:00 99.5 68 18 115/68 100 Mechanical Ventilator 50 12/16/16 18:50 78 18 50 12/16/16 17:50 Mechanical Ventilator 50.0 50 12/16/16 17:25 73 18 50 General Appearance: no apparent distress, alert, on vent, patient on isolation Laboratory Tests Test 12/17/16 04:15 White Blood Count 7.9 K/UL (4.8-10.8) Red Blood Count 2.55 M/UL (4.20-5.40) L Hemoglobin 7.6 G/DL (12.0-16.0) L Hematocrit 26.5 % (37.0-47.0) L Mean Corpuscular Volume 104 FL (80-99) H Mean Corpuscular Hemoglobin 29.9 PG (27.0-31.0) Mean Corpuscular Hemoglobin Concent 28.8 G/DL (32.0-36.0) L Red Cell Distribution Width 19.9 % (11.6-14.8) H Platelet Count 210 K/UL (150-450) Mean Platelet Volume 5.5 FL (6.5-10.1) L Neutrophils (%) (Auto) % (45.0-75.0) Lymphocytes (%) (Auto) % (20.0-45.0) Monocytes (%) (Auto) % (1.0-10.0) Eosinophils (%) (Auto) % (0.0-3.0) Basophils (%) (Auto) % (0.0-2.0) Differential Total Cells Counted 100 Neutrophils % (Manual) 71 % (45-75) Lymphocytes % (Manual) 19 % (20-45) L Monocytes % (Manual) 8 % (1-10) Eosinophils % (Manual) 2 % (0-3) Basophils % (Manual) 0 % (0-2) Band Neutrophils 0 % (0-8) Platelet Estimate Adequate Platelet Morphology Normal Sodium Level 143 MMOL/L (136-145) Potassium Level 3.3 MMOL/L (3.5-5.1) L Chloride Level 101 MMOL/L (98-107) Carbon Dioxide Level 34 MMOL/L (21-32) H Anion Gap 9 mmol/L (5-15) Blood Urea Nitrogen 17 mg/dL (7-18) Creatinine 2.7 MG/DL (0.55-1.30) H Estimat Glomerular Filtration Rate mL/min (>60) Glucose Level 85 MG/DL (74-106) Calcium Level 8.2 MG/DL (8.5-10.1) L Total Bilirubin 1.5 MG/DL (0.2-1.0) H Direct Bilirubin 0.7 MG/DL (0.0-0.3) H Aspartate Amino Transf (AST/SGOT) 20 U/L (15-37) Alanine Aminotransferase (ALT/SGPT) < 6 U/L (12-78) L Alkaline Phosphatase 73 U/L (46-116) Total Protein 7.3 G/DL (6.4-8.2) Albumin 1.9 G/DL (3.4-5.0) L Globulin 5.4 g/dL Albumin/Globulin Ratio 0.4 (1.0-2.7) L BRIANA TELLES Dec 17, 2016 16:53
--- NOTE | 2016-12-17 19:41 | General Progress Note ---
Assessment/Plan Status: progressing Assessment/Plan This is a 76-year-old, morbidly obese female, admitted with anasarca and cellulitis of the lower leg. The patient was admitted to the directr observation unit on the monitor with the following medical problems. now transfered to icu as of 11-14-16, co of pruritis 1. Anasarca. She appears to be markedly swollen. She will need diuresis. Place the patient on Lasix 20 mg intravenous for now q.12 hours. Cardiology and Pulmonary on the case. We will follow orders. Check laboratory studies daily. Lasix drip was discontinued in am, HD started 2. Chronic hypercapnic respiratory failure. Continue with vent support per Pulmonary. will discuss with pulmonary regarding trach issues 3 anemia. s./p transfusion of PRBC Continue monitoring CBC daily. patient to start Procrit per nephrology 4. Pulmonary hypertension. hold Eliquis as patient is ob positive 5. Chronic kidney disease. On HD for now per nephrology. 6. DVT prophylaxis. scds 7. nutrition: patient didn't tolerate NGT placement, patient is now s/p PEG placement, tolerating tube feeding 8. Alkalosis: resolved 9. Generalized anxiety: Ativan prn, counselled for 15min 10. constipation: prn enema, continue with Colace and MiraLAX had revision of trach on 11-23-16 11. Anemia: finished transfusion of one unit of PRBC 12/13/16 12. abdominal Pain: probable constipation, will order Miralax and colace fu serial abdominal exams, am labs 13. leg blisster: Xeroform dressing 14. VTE prophylaxis: SCDs Benadryl 25 mg iv q 6 prn itching tolerating tube feeding continue HD per nephrology trach revision done by Dr. Powell transfused one unit of PRBC on 12-13-16, 12-14-16 discussed with nursing staff HD per nephrology failed swallow study pt ot HD today, may need blood transfusion soon awaiting transfer to subacute hospital such as [facility] for VTE prophylaxis Subjective Date patient seen: Dec 17, 2016 Allergies: Coded Allergies: AMOXICILLIN (Verified Allergy, Mild, RASH, 09/30/16) PENICILLINS (Unverified Allergy, Unknown, 09/30/16) All Systems: reviewed and negative except above Subjective had transfusion of one unit of PRBC for anemia again today Objective Last 24 Hour Vital Signs Date Time Temp Pulse Resp B/P (MAP) Pulse Ox O2 Delivery O2 Flow Rate FiO2 12/17/16 19:14 80 19 50 12/17/16 16:58 78 18 50 12/17/16 16:00 98.2 75 18 111/47 98 Mechanical Ventilator 50 12/17/16 16:00 83 12/17/16 16:00 50 12/17/16 15:04 74 18 50 12/17/16 12:30 66 18 50 12/17/16 12:00 50 12/17/16 12:00 98.1 73 18 101/53 100 Mechanical Ventilator 50 12/17/16 12:00 72 12/17/16 10:55 72 18 50 12/17/16 08:58 75 18 50 12/17/16 08:00 73 12/17/16 08:00 97.9 71 18 113/67 98 Mechanical Ventilator 50 12/17/16 08:00 50 12/17/16 06:43 73 18 50 12/17/16 05:20 71 18 50 12/17/16 04:00 98.4 67 18 116/58 98 Mechanical Ventilator 50 12/17/16 04:00 50 12/17/16 04:00 70 12/17/16 02:45 77 18 50 12/17/16 00:59 72 18 50 12/17/16 00:00 69 12/17/16 00:00 98.5 68 20 110/62 99 Mechanical Ventilator 50 12/17/16 00:00 50 12/16/16 22:50 70 18 50 12/16/16 22:16 99.0 72 20 95/52 Mechanical Ventilator 12/16/16 22:14 Mechanical Ventilator 12/16/16 20:45 79 18 50 12/16/16 20:00 68 12/16/16 20:00 50 12/16/16 20:00 99.5 68 18 115/68 100 Mechanical Ventilator 50 Intake and Output 12/17/16 12/18/16 19:00 07:00 Intake Total 450 ml Balance 450 ml Free Water 90 ml Tube Feeding 360 ml # Bowel Movements 2 Laboratory Tests 12/17/16 04:15: White Blood Count 7.9, Red Blood Count 2.55L, Hemoglobin 7.6L, Hematocrit 26.5L , Mean Corpuscular Volume 104H, Mean Corpuscular Hemoglobin 29.9, Mean Corpuscular Hemoglobin Concent 28.8L, Red Cell Distribution Width 19.9H, Platelet Count 210, Mean Platelet Volume 5.5L, Neutrophils (%) (Auto) , Lymphocytes (%) (Auto) , Monocytes (%) (Auto) , Eosinophils (%) (Auto) , Basophils (%) (Auto) , Differential Total Cells Counted 100, Neutrophils % ( Manual) 71, Lymphocytes % (Manual) 19L, Monocytes % (Manual) 8, Eosinophils % ( Manual) 2, Basophils % (Manual) 0, Band Neutrophils 0, Platelet Estimate Adequate, Platelet Morphology Normal, Sodium Level 143, Potassium Level 3.3L, Chloride Level 101, Carbon Dioxide Level 34H, Anion Gap 9, Blood Urea Nitrogen 17, Creatinine 2.7H, Estimat Glomerular Filtration Rate , Glucose Level 85, Calcium Level 8.2L, Total Bilirubin 1.5H, Direct Bilirubin 0.7H, Aspartate Amino Transf (AST/SGOT) 20, Alanine Aminotransferase (ALT/SGPT) < 6L, Alkaline Phosphatase 73, Total Protein 7.3, Albumin 1.9L, Globulin 5.4, Albumin/Globulin Ratio 0.4L Height (Feet): 5 Height (Inches): 3.00 Weight (Pounds): 380 General Appearance: morbidly obese EENT: PERRL/EOMI, pharynx normal Neck: non-tender, supple Respiratory/Chest: chest wall non-tender, normal breath sounds, no respiratory distress Abdomen: distended Extremities: swelling Edema: 3+ Arm (L), 3+ Arm (R), 3+ Leg (L), 3+ Leg (R), 3+ Pedal (L), 3+ Pedal ( R), 3+ Generalized Edema: moderate edema, severe edema Neurologic: cupola charger II-XII grossly normal, oriented x 3, responsive Skin: rash Lymphatic: normal anterior cervical (L), normal anterior cervical (R), normal posterior cervical (L), normal posterior cervical (R), normal submandibular (L) , normal submandibular (R), normal supraclavicular (L), normal supraclavicular ( R), normal axillary (L), normal axillary (R), normal inguinal (L), normal inguinal (R), normal other Manny Nolan MD Dec 17, 2016 19:41
[2016-12-17 20:00] VITALS: BP 102/60
[2016-12-17] MEDS: Dyna-Hex 2% Top Sol 2oz TOPIC SCH (20:00)
[2016-12-17] MEDS: Miralax 17gm pkt ORAL SCH (21:00)
[2016-12-17] MEDS: Epogen (for non ESRD use) SUBQ SCH (22:42)
[2016-12-18] VITALS (7 sets, daily range): BP systolic 93–124; BP diastolic 44–62
[2016-12-18 05:41] LABS: BASOPHILS % (AUTO) 1.4 % (0.0-2.0); EOSINOPHILS % (AUTO) 3.3 % (0.0-3.0); LYMPHOCYTES % (AUTO) 20.2 % (20.0-45.0); MEAN CORPUSCULAR HEMOGLOBIN 31.5 PG (27.0-31.0); MEAN CORPUSCULAR HGB CONC 31.3 G/DL (32.0-36.0); MEAN CORPUSCULAR VOLUME 101 FL (80-99); MEAN PLATELET VOLUME 5.7 FL (6.5-10.1); MONOCYTES % (AUTO) 11.1 % (1.0-10.0); NEUTROPHILS % (AUTO) 64.1 % (45.0-75.0); PLATELET COUNT 234 K/UL (150-450); RED BLOOD COUNT 2.58 M/UL (4.20-5.40); RED CELL DISTRIBUTION WIDTH 19.8 % (11.6-14.8); WHITE BLOOD COUNT 8.1 K/UL (4.8-10.8)
[2016-12-18] MEDS: Midodrine 10mg tab GT SCH ×3 (05:46→21:44)
[2016-12-18 05:53] LABS: ALANINE AMINOTRANSFERASE < 6 U/L (12-78); ALBUMIN/GLOBULIN RATIO 0.3 (1.0-2.7); ANION GAP 8 mmol/L (5-15); ASPARTATE AMINO TRANSFERASE 19 U/L (15-37); CALCIUM 8.3 MG/DL (8.5-10.1); CARBON DIOXIDE 35 MMOL/L (21-32); CHLORIDE 101 MMOL/L (98-107); CREATININE 3.1 MG/DL (0.55-1.30); POTASSIUM 3.1 MMOL/L (3.5-5.1); SODIUM 144 MMOL/L (136-145); TOTAL PROTEIN 7.4 G/DL (6.4-8.2)
[2016-12-18 06:13] LABS: BILIRUBIN,DIRECT 0.8 MG/DL (0.0-0.3)
--- NOTE | 2016-12-18 07:03 | Pulmonology Progress Note ---
Assessment/Plan Problems: (1) Chronic respiratory failure (2) Anasarca (3) ATN (acute tubular necrosis) (4) Anemia (5) Peripheral edema (6) Pickwickian syndrome (7) MINA (obstructive sleep apnea) (8) Morbid obesity Respiratory: monitor respiratory rate, adjust FIO2, CXR Cardiac: continue to monitor HR/BP Renal: F/U I&O, keep IV fluid Infectious Disease: check cultures Gastrointestinal: continue feedings/current rate, hold feedings Endocrine: monitor blood sugar, check HgA1C, continue sliding scale insulin Hematologic: transfuse if hgb<8.5 Neurologic: PRN Ativan, PRN Morphine, keep patient comfortable Affect: PRN ativan Prophylaxis: Heparin Notes Reviewed: pharmacist per diem, renal 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: nurses, consultants, human services case manager Subjective ROS Limited/Unobtainable: No Constitutional: Reports: no symptoms Respiratory: Reports: no symptoms Allergies: Coded Allergies: AMOXICILLIN (Verified Allergy, Mild, RASH, 09/30/16) PENICILLINS (Unverified Allergy, Unknown, 09/30/16) Objective Last 24 Hour Vital Signs Date Time Temp Pulse Resp B/P (MAP) Pulse Ox O2 Delivery O2 Flow Rate FiO2 12/18/16 05:18 72 18 50 12/18/16 04:00 50 12/18/16 04:00 97.0 92 18 121/55 98 Mechanical Ventilator 50 12/18/16 03:42 80 12/18/16 03:29 68 18 50 12/18/16 01:13 62 18 50 12/18/16 00:00 50 12/18/16 00:00 98.8 73 18 98/57 99 Mechanical Ventilator 50 12/17/16 23:29 73 18 50 12/17/16 21:15 88 20 50 12/17/16 20:00 98.4 68 18 102/60 99 Mechanical Ventilator 50 12/17/16 20:00 73 12/17/16 20:00 50 12/17/16 19:14 80 19 50 12/17/16 16:58 78 18 50 12/17/16 16:00 98.2 75 18 111/47 98 Mechanical Ventilator 50 12/17/16 16:00 83 12/17/16 16:00 50 12/17/16 15:04 74 18 50 12/17/16 12:30 66 18 50 12/17/16 12:00 50 12/17/16 12:00 98.1 73 18 101/53 100 Mechanical Ventilator 50 12/17/16 12:00 72 12/17/16 10:55 72 18 50 12/17/16 08:58 75 18 50 12/17/16 08:00 73 12/17/16 08:00 97.9 71 18 113/67 98 Mechanical Ventilator 50 12/17/16 08:00 50 General Appearance: WD/WN HEENT: normocephalic, atraumatic Cardiovascular: normal peripheral pulses, normal rate Abdomen: normal bowel sounds, soft, non tender Genitourinary: normal external genitalia Extremities: no cyanosis Skin: no rash, no lesions Laboratory Tests 12/18/16 04:00: White Blood Count 8.1, Red Blood Count 2.58L, Hemoglobin 8.1L, Hematocrit 25.9L , Mean Corpuscular Volume 101H, Mean Corpuscular Hemoglobin 31.5H, Mean Corpuscular Hemoglobin Concent 31.3L, Red Cell Distribution Width 19.8H, Platelet Count 234, Mean Platelet Volume 5.7L, Neutrophils (%) (Auto) 64.1, Lymphocytes (%) (Auto) 20.2, Monocytes (%) (Auto) 11.1H, Eosinophils (%) (Auto) 3.3H, Basophils (%) (Auto) 1.4, Sodium Level 144, Potassium Level 3.1L, Chloride Level 101, Carbon Dioxide Level 35H, Anion Gap 8, Blood Urea Nitrogen 20H, Creatinine 3.1H, Estimat Glomerular Filtration Rate , Glucose Level 92, Calcium Level 8.3L, Total Bilirubin 1.6H, Direct Bilirubin 0.8H, Aspartate Amino Transf (AST/SGOT) 19, Alanine Aminotransferase (ALT/SGPT) < 6L, Alkaline Phosphatase 73, Total Protein 7.4, Albumin 1.9L, Globulin 5.5, Albumin/Globulin Ratio 0.3L Current Medications Medications (Trade) Dose Ordered Sig/Kalyn Route PRN Reason Start Time Stop Time Status Last Admin Dose Admin Allopurinol (Zyloprim) 100 mg DAILY ORAL 12/15/16 09:00 01/14/17 08:59 12/17/16 09:05 Chlorhexidine Gluconate (Marni-Hex 2%) 1 applic Q24H TOPIC 12/03/16 20:00 12/27/16 19:59 12/17/16 20:00 Diphenhydramine HCl (Benadryl) 25 mg Q6H PRN IVP Itching 12/03/16 15:00 12/19/16 14:59 Docusate Sodium (Colace) 100 mg TWICE A DAY GT 12/04/16 09:00 01/03/17 08:59 12/17/16 09:05 Midodrine (Pro-Amatine) 10 mg EVERY 8 HOURS GT 12/12/16 14:00 01/11/17 13:59 12/18/16 05:46 Polyethylene Glycol (Miralax) 17 gm BEDTIME ORAL 12/12/16 21:30 01/11/17 21:29 12/15/16 21:00 Ranitidine HCl (Zantac) 150 mg DAILY GT 12/17/16 09:00 01/16/17 08:59 12/17/16 09:05 ARASH MIRANDA Dec 18, 2016 07:03
--- NOTE | 2016-12-18 08:01 | Nephrology Progress Note ---
Assessment/Plan Problem List: (1) Renal failure Assessment: CKD + ACUTE (2) Acute and chronic respiratory failure (3) CHF (congestive heart failure) (4) Morbid obesity (5) Atrial fibrillation Assessment Stable from renal stand CKD- and acute renal failure - Acute respiratory failure s/p Trach Obese COPD , CHF, Diastolic MINA UTI Anemia GI Bleed, GI bleeding At Fib Pulm HTN h/o Low B12 Plan Plan: Now has PEG- HD last 12/16 again today K supplement as needed on EPOGEN 24 H urine collection in process: CrCl 6 Monitor renal parameters- optimize cardiac and pulm status pulmonary support- transfuse as needed ? DC planning post PEG, placement is complicated Subjective ROS Limited/Unobtainable: No Constitutional: Reports: malaise Objective Objective Last 24 Hour Vital Signs Date Time Temp Pulse Resp B/P (MAP) Pulse Ox O2 Delivery O2 Flow Rate FiO2 12/18/16 06:51 75 18 50 12/18/16 05:18 72 18 50 12/18/16 04:00 50 12/18/16 04:00 97.0 92 18 121/55 98 Mechanical Ventilator 50 12/18/16 03:42 80 12/18/16 03:29 68 18 50 12/18/16 01:13 62 18 50 12/18/16 00:00 50 12/18/16 00:00 98.8 73 18 98/57 99 Mechanical Ventilator 50 12/17/16 23:29 73 18 50 12/17/16 21:15 88 20 50 12/17/16 20:00 98.4 68 18 102/60 99 Mechanical Ventilator 50 12/17/16 20:00 73 12/17/16 20:00 50 12/17/16 19:14 80 19 50 12/17/16 16:58 78 18 50 12/17/16 16:00 98.2 75 18 111/47 98 Mechanical Ventilator 50 12/17/16 16:00 83 12/17/16 16:00 50 12/17/16 15:04 74 18 50 12/17/16 12:30 66 18 50 12/17/16 12:00 50 12/17/16 12:00 98.1 73 18 101/53 100 Mechanical Ventilator 50 12/17/16 12:00 72 12/17/16 10:55 72 18 50 12/17/16 08:58 75 18 50 Laboratory Tests 12/18/16 04:00: White Blood Count 8.1, Red Blood Count 2.58L, Hemoglobin 8.1L, Hematocrit 25.9L , Mean Corpuscular Volume 101H, Mean Corpuscular Hemoglobin 31.5H, Mean Corpuscular Hemoglobin Concent 31.3L, Red Cell Distribution Width 19.8H, Platelet Count 234, Mean Platelet Volume 5.7L, Neutrophils (%) (Auto) 64.1, Lymphocytes (%) (Auto) 20.2, Monocytes (%) (Auto) 11.1H, Eosinophils (%) (Auto) 3.3H, Basophils (%) (Auto) 1.4, Sodium Level 144, Potassium Level 3.1L, Chloride Level 101, Carbon Dioxide Level 35H, Anion Gap 8, Blood Urea Nitrogen 20H, Creatinine 3.1H, Estimat Glomerular Filtration Rate , Glucose Level 92, Calcium Level 8.3L, Total Bilirubin 1.6H, Direct Bilirubin 0.8H, Aspartate Amino Transf (AST/SGOT) 19, Alanine Aminotransferase (ALT/SGPT) < 6L, Alkaline Phosphatase 73, Total Protein 7.4, Albumin 1.9L, Globulin 5.5, Albumin/Globulin Ratio 0.3L Height (Feet): 5 Height (Inches): 3.00 Weight (Pounds): 382 General Appearance: no apparent distress Cardiovascular: normal rate Respiratory/Chest: decreased breath sounds Abdomen: soft Objective edema COURTNEY Sanches Dec 18, 2016 08:01
[2016-12-18] MEDS: Docusate 100mg/10ml Liq GT SCH ×2 (09:04→18:00)
[2016-12-18] MEDS: Allopurinol 100mg Tab ORAL SCH (09:05)
--- NOTE | 2016-12-18 09:57 | Infectious Diseases Prog Note ---
Assessment/Plan Assessment/Plan Probable VAP Scx : PSA and Providencia, SP Rx -CXR 12/13 : Pulmonary edema Leukocytosis , SP Cellulitis BLE and R arm- in the setting of chronic leg edema/venous stasis, s/ p Rx- Limited Venous duplex BLE (non diagnostic), no DVT R arm;Cellulitis resolved;Now residual venous stasis changes. -Bcx Neg Anasarca/ bilateral leg lymphedema VRE colonzied GT site : Wnd Cx : Morg M, Providencia ( Colonizer ) Anemia COPD Diastolic CHF Renal insufficiency- acute on chronic- started on HD 11/24 chronic resp failure, vent/trach dependent Gtbue pAfib pleural effusion MINA CKD GERD morbid obesity [facility] resident Plan: Continue to monitor pt off of AB Rx 12/18 SP Cefepime #7 IV Vancomycin 11/11-11/12; 11/17-11/26 IV Cefepime 11/11-11/12 IV Ancef 11/12-11/28 Flagyl x1 11/11 monitor C-xray -extremity elevation -edema management -Monitor CBC/BMP, - vent support, trach care, aspiration precautions Subjective Allergies: Coded Allergies: AMOXICILLIN (Verified Allergy, Mild, RASH, 09/30/16) PENICILLINS (Unverified Allergy, Unknown, 09/30/16) Subjective afebrile no leukocytosis off abx Objective Vital Signs Last 24 Hour Vital Signs Date Time Temp Pulse Resp B/P (MAP) Pulse Ox O2 Delivery O2 Flow Rate FiO2 12/18/16 08:36 77 18 50 12/18/16 08:00 50 12/18/16 08:00 97.0 79 18 124/44 98 Mechanical Ventilator 50 12/18/16 06:51 75 18 50 12/18/16 05:18 72 18 50 12/18/16 04:00 50 12/18/16 04:00 97.0 92 18 121/55 98 Mechanical Ventilator 50 12/18/16 03:42 80 12/18/16 03:29 68 18 50 12/18/16 01:13 62 18 50 12/18/16 00:00 50 12/18/16 00:00 98.8 73 18 98/57 99 Mechanical Ventilator 50 12/17/16 23:29 73 18 50 12/17/16 21:15 88 20 50 12/17/16 20:00 98.4 68 18 102/60 99 Mechanical Ventilator 50 12/17/16 20:00 73 12/17/16 20:00 50 12/17/16 19:14 80 19 50 12/17/16 16:58 78 18 50 12/17/16 16:00 98.2 75 18 111/47 98 Mechanical Ventilator 50 12/17/16 16:00 83 12/17/16 16:00 50 12/17/16 15:04 74 18 50 12/17/16 12:30 66 18 50 12/17/16 12:00 50 12/17/16 12:00 98.1 73 18 101/53 100 Mechanical Ventilator 50 12/17/16 12:00 72 12/17/16 10:55 72 18 50 Height (Feet): 5 Height (Inches): 3.00 Weight (Pounds): 382 Objective General Appearance: WD/WN HEENT: trach in palce, Respiratory/Chest: chest wall non-tender, lungs clear Cardiovascular/Chest: normal peripheral pulses, normal rate Abdomen: normal bowel sounds, non tender Ext: venous statis changes, now b/l legs back to baseline; cellulitis resolved, swelling improved reviewed Laboratory Tests Test 12/18/16 04:00 White Blood Count 8.1 K/UL (4.8-10.8) Red Blood Count 2.58 M/UL (4.20-5.40) L Hemoglobin 8.1 G/DL (12.0-16.0) L Hematocrit 25.9 % (37.0-47.0) L Mean Corpuscular Volume 101 FL (80-99) H Mean Corpuscular Hemoglobin 31.5 PG (27.0-31.0) H Mean Corpuscular Hemoglobin Concent 31.3 G/DL (32.0-36.0) L Red Cell Distribution Width 19.8 % (11.6-14.8) H Platelet Count 234 K/UL (150-450) Mean Platelet Volume 5.7 FL (6.5-10.1) L Neutrophils (%) (Auto) 64.1 % (45.0-75.0) Lymphocytes (%) (Auto) 20.2 % (20.0-45.0) Monocytes (%) (Auto) 11.1 % (1.0-10.0) H Eosinophils (%) (Auto) 3.3 % (0.0-3.0) H Basophils (%) (Auto) 1.4 % (0.0-2.0) Sodium Level 144 MMOL/L (136-145) Potassium Level 3.1 MMOL/L (3.5-5.1) L Chloride Level 101 MMOL/L (98-107) Carbon Dioxide Level 35 MMOL/L (21-32) H Anion Gap 8 mmol/L (5-15) Blood Urea Nitrogen 20 mg/dL (7-18) H Creatinine 3.1 MG/DL (0.55-1.30) H Estimat Glomerular Filtration Rate mL/min (>60) Glucose Level 92 MG/DL (74-106) Calcium Level 8.3 MG/DL (8.5-10.1) L Total Bilirubin 1.6 MG/DL (0.2-1.0) H Direct Bilirubin 0.8 MG/DL (0.0-0.3) H Aspartate Amino Transf (AST/SGOT) 19 U/L (15-37) Alanine Aminotransferase (ALT/SGPT) < 6 U/L (12-78) L Alkaline Phosphatase 73 U/L (46-116) Total Protein 7.4 G/DL (6.4-8.2) Albumin 1.9 G/DL (3.4-5.0) L Globulin 5.5 g/dL Albumin/Globulin Ratio 0.3 (1.0-2.7) L Current Medications Medications (Trade) Dose Ordered Sig/Kalyn Route PRN Reason Start Time Stop Time Status Last Admin Dose Admin Allopurinol (Zyloprim) 100 mg DAILY ORAL 12/15/16 09:00 01/14/17 08:59 12/18/16 09:05 Chlorhexidine Gluconate (Marni-Hex 2%) 1 applic Q24H TOPIC 12/03/16 20:00 12/27/16 19:59 12/17/16 20:00 Diphenhydramine HCl (Benadryl) 25 mg Q6H PRN IVP Itching 12/03/16 15:00 12/19/16 14:59 Docusate Sodium (Colace) 100 mg TWICE A DAY GT 12/04/16 09:00 01/03/17 08:59 12/18/16 09:04 Midodrine (Pro-Amatine) 10 mg EVERY 8 HOURS GT 12/12/16 14:00 01/11/17 13:59 12/18/16 05:46 Polyethylene Glycol (Miralax) 17 gm BEDTIME ORAL 12/12/16 21:30 01/11/17 21:29 12/15/16 21:00 Ranitidine HCl (Zantac) 150 mg DAILY GT 12/17/16 09:00 01/16/17 08:59 12/18/16 09:05 Danielle Guo M.D. Dec 18, 2016 09:57
--- NOTE | 2016-12-18 11:27 | General Progress Note ---
Assessment/Plan Problem List: (1) Positive occult stool blood test ICD Codes: R19.5 - Other fecal abnormalities SNOMED: 35079577, 026283405 (2) Morbid obesity ICD Codes: E66.01 - Morbid (severe) obesity due to excess calories SNOMED: 299283102, 28284390147900 (3) Atrial fibrillation ICD Codes: I48.91 - Unspecified atrial fibrillation SNOMED: 63121128 (4) CHF (congestive heart failure) ICD Codes: I50.9 - Heart failure, unspecified SNOMED: 88115022 (5) PEG (percutaneous endoscopic gastrostomy) adjustment/replacement/removal ICD Codes: Z43.1 - Encounter for attention to gastrostomy SNOMED: 727331285, 650371458 Assessment/Plan s/p PEG GTF tolerated fu labs Subjective ROS Limited/Unobtainable: No Allergies: Coded Allergies: AMOXICILLIN (Verified Allergy, Mild, RASH, 09/30/16) PENICILLINS (Unverified Allergy, Unknown, 09/30/16) Subjective no event Objective Last 24 Hour Vital Signs Date Time Temp Pulse Resp B/P (MAP) Pulse Ox O2 Delivery O2 Flow Rate FiO2 12/18/16 10:49 72 18 50 12/18/16 08:36 77 18 50 12/18/16 08:00 50 12/18/16 08:00 62 12/18/16 08:00 97.0 79 18 124/44 98 Mechanical Ventilator 50 12/18/16 06:51 75 18 50 12/18/16 05:18 72 18 50 12/18/16 04:00 50 12/18/16 04:00 97.0 92 18 121/55 98 Mechanical Ventilator 50 12/18/16 03:42 80 12/18/16 03:29 68 18 50 12/18/16 01:13 62 18 50 12/18/16 00:00 50 12/18/16 00:00 98.8 73 18 98/57 99 Mechanical Ventilator 50 12/17/16 23:29 73 18 50 12/17/16 21:15 88 20 50 12/17/16 20:00 98.4 68 18 102/60 99 Mechanical Ventilator 50 12/17/16 20:00 73 12/17/16 20:00 50 12/17/16 19:14 80 19 50 12/17/16 16:58 78 18 50 12/17/16 16:00 98.2 75 18 111/47 98 Mechanical Ventilator 50 12/17/16 16:00 83 12/17/16 16:00 50 12/17/16 15:04 74 18 50 12/17/16 12:30 66 18 50 12/17/16 12:00 50 12/17/16 12:00 98.1 73 18 101/53 100 Mechanical Ventilator 50 12/17/16 12:00 72 Intake and Output 12/18/16 12/19/16 19:00 07:00 Intake Total 140 ml Balance 140 ml Free Water 50 ml Tube Feeding 90 ml # Bowel Movements 1 Laboratory Tests 12/18/16 04:00: White Blood Count 8.1, Red Blood Count 2.58L, Hemoglobin 8.1L, Hematocrit 25.9L , Mean Corpuscular Volume 101H, Mean Corpuscular Hemoglobin 31.5H, Mean Corpuscular Hemoglobin Concent 31.3L, Red Cell Distribution Width 19.8H, Platelet Count 234, Mean Platelet Volume 5.7L, Neutrophils (%) (Auto) 64.1, Lymphocytes (%) (Auto) 20.2, Monocytes (%) (Auto) 11.1H, Eosinophils (%) (Auto) 3.3H, Basophils (%) (Auto) 1.4, Sodium Level 144, Potassium Level 3.1L, Chloride Level 101, Carbon Dioxide Level 35H, Anion Gap 8, Blood Urea Nitrogen 20H, Creatinine 3.1H, Estimat Glomerular Filtration Rate , Glucose Level 92, Calcium Level 8.3L, Total Bilirubin 1.6H, Direct Bilirubin 0.8H, Aspartate Amino Transf (AST/SGOT) 19, Alanine Aminotransferase (ALT/SGPT) < 6L, Alkaline Phosphatase 73, Total Protein 7.4, Albumin 1.9L, Globulin 5.5, Albumin/Globulin Ratio 0.3L Height (Feet): 5 Height (Inches): 3.00 Weight (Pounds): 382 General Appearance: no apparent distress EENT: normal ENT inspection Neck: supple Cardiovascular: normal rate Respiratory/Chest: decreased breath sounds Abdomen: normal bowel sounds, non tender, soft Extremities: non-tender RUDDY RODRIGUEZ Dec 18, 2016 11:27
--- NOTE | 2016-12-18 15:05 | Cardiology Progress Note ---
Assessment/Plan Problem List: (1) Chronic respiratory failure (2) Anasarca (3) Anemia (4) Cellulitis (5) Pickwickian syndrome (6) MINA (obstructive sleep apnea) (7) Atrial fibrillation (8) Morbid obesity Status: stable, progressing Status Narrative Pt in AF w/ controlled ventricular rates, off meds. Anticoagulation held. On hemodialysis for fluid removal. Remains w/ significant volume overload. Assessment/Plan Continue fluid removal w/ HD, as tolerated . Continue high dose proamitine to maintain BP. Hold anticoagulation, as pt w/ anemia and heme positive stools. Plan for transfer to [facility] facility noted. Subjective ROS Limited/Unobtainable: Yes Subjective Pt awake, on vent. Events noted. Objective Last 24 Hour Vital Signs Date Time Temp Pulse Resp B/P (MAP) Pulse Ox O2 Delivery O2 Flow Rate FiO2 12/18/16 12:45 73 18 50 12/18/16 12:00 50 12/18/16 12:00 97.0 62 18 111/61 98 Mechanical Ventilator 50 12/18/16 10:49 72 18 50 12/18/16 08:36 77 18 50 12/18/16 08:00 50 12/18/16 08:00 62 12/18/16 08:00 97.0 79 18 124/44 98 Mechanical Ventilator 50 12/18/16 06:51 75 18 50 12/18/16 05:18 72 18 50 12/18/16 04:00 50 12/18/16 04:00 97.0 92 18 121/55 98 Mechanical Ventilator 50 12/18/16 03:42 80 12/18/16 03:29 68 18 50 12/18/16 01:13 62 18 50 12/18/16 00:00 50 12/18/16 00:00 98.8 73 18 98/57 99 Mechanical Ventilator 50 12/17/16 23:29 73 18 50 12/17/16 21:15 88 20 50 12/17/16 20:00 98.4 68 18 102/60 99 Mechanical Ventilator 50 12/17/16 20:00 73 12/17/16 20:00 50 12/17/16 19:14 80 19 50 12/17/16 16:58 78 18 50 12/17/16 16:00 98.2 75 18 111/47 98 Mechanical Ventilator 50 12/17/16 16:00 83 12/17/16 16:00 50 12/17/16 15:04 74 18 50 General Appearance: WD/WN, no apparent distress, obese, on vent EENT: PERRL/EOMI Neck: supple Rhythm: Afib Cardiovascular: normal rate, irregularly irregular Respiratory/Chest: other - scattered rhonchi anteriorly Abdomen: normal bowel sounds, soft, other - abd wall edema Extremities: moderate edema Intake and Output 12/18/16 12/19/16 19:00 07:00 Intake Total 200 ml Balance 200 ml Free Water 50 ml Tube Feeding 150 ml # Bowel Movements 2 Laboratory Tests Test 12/18/16 04:00 White Blood Count 8.1 K/UL (4.8-10.8) Red Blood Count 2.58 M/UL (4.20-5.40) L Hemoglobin 8.1 G/DL (12.0-16.0) L Hematocrit 25.9 % (37.0-47.0) L Mean Corpuscular Volume 101 FL (80-99) H Mean Corpuscular Hemoglobin 31.5 PG (27.0-31.0) H Mean Corpuscular Hemoglobin Concent 31.3 G/DL (32.0-36.0) L Red Cell Distribution Width 19.8 % (11.6-14.8) H Platelet Count 234 K/UL (150-450) Mean Platelet Volume 5.7 FL (6.5-10.1) L Neutrophils (%) (Auto) 64.1 % (45.0-75.0) Lymphocytes (%) (Auto) 20.2 % (20.0-45.0) Monocytes (%) (Auto) 11.1 % (1.0-10.0) H Eosinophils (%) (Auto) 3.3 % (0.0-3.0) H Basophils (%) (Auto) 1.4 % (0.0-2.0) Sodium Level 144 MMOL/L (136-145) Potassium Level 3.1 MMOL/L (3.5-5.1) L Chloride Level 101 MMOL/L (98-107) Carbon Dioxide Level 35 MMOL/L (21-32) H Anion Gap 8 mmol/L (5-15) Blood Urea Nitrogen 20 mg/dL (7-18) H Creatinine 3.1 MG/DL (0.55-1.30) H Estimat Glomerular Filtration Rate mL/min (>60) Glucose Level 92 MG/DL (74-106) Calcium Level 8.3 MG/DL (8.5-10.1) L Total Bilirubin 1.6 MG/DL (0.2-1.0) H Direct Bilirubin 0.8 MG/DL (0.0-0.3) H Aspartate Amino Transf (AST/SGOT) 19 U/L (15-37) Alanine Aminotransferase (ALT/SGPT) < 6 U/L (12-78) L Alkaline Phosphatase 73 U/L (46-116) Total Protein 7.4 G/DL (6.4-8.2) Albumin 1.9 G/DL (3.4-5.0) L Globulin 5.5 g/dL Albumin/Globulin Ratio 0.3 (1.0-2.7) L STACEY WATERS Dec 18, 2016 15:05
[2016-12-18] MEDS ORDERED: NS 275ml ONE (16:09)
[2016-12-18] MEDS: Dyna-Hex 2% Top Sol 2oz TOPIC SCH (20:20)
--- NOTE | 2016-12-18 21:11 | General Progress Note ---
Assessment/Plan Assessment/Plan This is a 76-year-old, morbidly obese female, admitted with anasarca and cellulitis of the lower leg. The patient was admitted to the directr observation unit on the monitor with the following medical problems. now transfered to icu as of 11-14-16, co of pruritis 1. Anasarca. She appears to be markedly swollen. She will need diuresis. Place the patient on Lasix 20 mg intravenous for now q.12 hours. Cardiology and Pulmonary on the case. We will follow orders. Check laboratory studies daily. Lasix drip was discontinued in am, HD started 2. Chronic hypercapnic respiratory failure. Continue with vent support per Pulmonary. will discuss with pulmonary regarding trach issues 3 anemia. s./p transfusion of PRBC Continue monitoring CBC daily. patient to start Procrit per nephrology 4. Pulmonary hypertension. hold Eliquis as patient is ob positive 5. Chronic kidney disease. On HD for now per nephrology. 6. DVT prophylaxis. scds 7. nutrition: patient didn't tolerate NGT placement, patient is now s/p PEG placement, tolerating tube feeding 8. Alkalosis: resolved 9. Generalized anxiety: Ativan prn, counselled for 15min 10. constipation: prn enema, continue with Colace and MiraLAX had revision of trach on 11-23-16 11. Anemia: finished transfusion of one unit of PRBC 12/13/16 12. abdominal Pain: probable constipation, will order Miralax and colace fu serial abdominal exams, am labs 13. leg blisster: Xeroform dressing 14. VTE prophylaxis: SCDs Benadryl 25 mg iv q 6 prn itching tolerating tube feeding continue HD per nephrology trach revision done by Dr. Powell transfused one unit of PRBC on 12-13-16, 12-14-16 discussed with nursing staff HD per nephrology failed swallow study pt ot HD was postponed as bp was low awaiting transfer to subacute hospital such as [facility] for VTE prophylaxis disucssed with nurse Subjective Date patient seen: Dec 18, 2016 Allergies: Coded Allergies: AMOXICILLIN (Verified Allergy, Mild, RASH, 09/30/16) PENICILLINS (Unverified Allergy, Unknown, 09/30/16) All Systems: reviewed and negative except above Subjective had transfusion of one unit of PRBC for anemia again today Objective Last 24 Hour Vital Signs Date Time Temp Pulse Resp B/P (MAP) Pulse Ox O2 Delivery O2 Flow Rate FiO2 12/18/16 20:16 90 18 50 12/18/16 19:00 Mechanical Ventilator 50 12/18/16 19:00 99.0 73 20 103/62 Mechanical Ventilator 50 12/18/16 17:00 81 18 50 12/18/16 16:01 99.8 66 18 97/50 98 Mechanical Ventilator 50 12/18/16 16:00 50 12/18/16 16:00 72 12/18/16 15:30 Non-Rebreather 50 12/18/16 15:22 78 18 50 12/18/16 12:45 73 18 50 12/18/16 12:00 73 12/18/16 12:00 50 12/18/16 12:00 97.0 62 18 111/61 98 Mechanical Ventilator 50 12/18/16 10:49 72 18 50 12/18/16 08:36 77 18 50 12/18/16 08:00 50 12/18/16 08:00 62 12/18/16 08:00 97.0 79 18 124/44 98 Mechanical Ventilator 50 12/18/16 06:51 75 18 50 12/18/16 05:18 72 18 50 12/18/16 04:00 50 12/18/16 04:00 97.0 92 18 121/55 98 Mechanical Ventilator 50 12/18/16 03:42 80 12/18/16 03:29 68 18 50 12/18/16 01:13 62 18 50 12/18/16 00:00 50 12/18/16 00:00 98.8 73 18 98/57 99 Mechanical Ventilator 50 12/17/16 23:29 73 18 50 12/17/16 21:15 88 20 50 Intake and Output 12/18/16 12/19/16 19:00 07:00 Intake Total 480 ml Output Total 173 ml Balance 307 ml Free Water 150 ml Tube Feeding 330 ml Hemodialysis UF 173 ml # Voids 1 # Bowel Movements 4 Laboratory Tests 12/18/16 04:00: White Blood Count 8.1, Red Blood Count 2.58L, Hemoglobin 8.1L, Hematocrit 25.9L , Mean Corpuscular Volume 101H, Mean Corpuscular Hemoglobin 31.5H, Mean Corpuscular Hemoglobin Concent 31.3L, Red Cell Distribution Width 19.8H, Platelet Count 234, Mean Platelet Volume 5.7L, Neutrophils (%) (Auto) 64.1, Lymphocytes (%) (Auto) 20.2, Monocytes (%) (Auto) 11.1H, Eosinophils (%) (Auto) 3.3H, Basophils (%) (Auto) 1.4, Sodium Level 144, Potassium Level 3.1L, Chloride Level 101, Carbon Dioxide Level 35H, Anion Gap 8, Blood Urea Nitrogen 20H, Creatinine 3.1H, Estimat Glomerular Filtration Rate , Glucose Level 92, Calcium Level 8.3L, Total Bilirubin 1.6H, Direct Bilirubin 0.8H, Aspartate Amino Transf (AST/SGOT) 19, Alanine Aminotransferase (ALT/SGPT) < 6L, Alkaline Phosphatase 73, Total Protein 7.4, Albumin 1.9L, Globulin 5.5, Albumin/Globulin Ratio 0.3L Height (Feet): 5 Height (Inches): 3.00 Weight (Pounds): 382 General Appearance: morbidly obese EENT: PERRL/EOMI, pharynx normal Neck: non-tender, supple Cardiovascular: normal rate, regular rhythm, no gallop/murmur, no JVD Respiratory/Chest: chest wall non-tender, normal breath sounds, no respiratory distress Abdomen: distended Extremities: swelling Edema: 2+ Arm (L), 2+ Arm (R), 3+ Leg (L), 3+ Leg (R), 3+ Pedal (L), 3+ Pedal ( R), 3+ Generalized Edema: moderate edema 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
[2016-12-18] MEDS: Miralax 17gm pkt ORAL SCH (21:44)
--- NOTE | 2016-12-18 22:15 | General Progress Note ---
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 INR improving. Continue to monitor #. Anemia secondary to chronic disease. Continue to closely monitor. Work up reviewed --> s/p multiple transfusions. watch counts, transfuse if hgb is below 7. --> ferritin is elevated # Positive occult blood. r/o gi bleed. gi following #. Anemia of kidney disease. Nephrology service following #. PEG tube placement #. Chronic ventilator dependent #. Permanent atrial fibrillation. #. Cellulitis and chronic lymphedema of the bilateral lower extremities. #. Congestive heart failure. Subjective ROS Limited/Unobtainable: Yes Allergies: Coded Allergies: AMOXICILLIN (Verified Allergy, Mild, RASH, 09/30/16) PENICILLINS (Unverified Allergy, Unknown, 09/30/16) Subjective no events overnight Objective Last 24 Hour Vital Signs Date Time Temp Pulse Resp B/P (MAP) Pulse Ox O2 Delivery O2 Flow Rate FiO2 12/18/16 21:27 71 18 50 12/18/16 20:16 90 18 50 12/18/16 20:00 68 12/18/16 20:00 97.5 74 18 93/49 98 Mechanical Ventilator 50 12/18/16 20:00 50 12/18/16 19:10 79 18 50 12/18/16 19:00 Mechanical Ventilator 50 12/18/16 19:00 99.0 73 20 103/62 Mechanical Ventilator 50 12/18/16 17:00 81 18 50 12/18/16 16:01 99.8 66 18 97/50 98 Mechanical Ventilator 50 12/18/16 16:00 50 12/18/16 16:00 72 12/18/16 15:30 Non-Rebreather 50 12/18/16 15:22 78 18 50 12/18/16 12:45 73 18 50 12/18/16 12:00 73 12/18/16 12:00 50 12/18/16 12:00 97.0 62 18 111/61 98 Mechanical Ventilator 50 12/18/16 10:49 72 18 50 12/18/16 08:36 77 18 50 12/18/16 08:00 50 12/18/16 08:00 62 12/18/16 08:00 97.0 79 18 124/44 98 Mechanical Ventilator 50 12/18/16 06:51 75 18 50 12/18/16 05:18 72 18 50 12/18/16 04:00 50 12/18/16 04:00 97.0 92 18 121/55 98 Mechanical Ventilator 50 12/18/16 03:42 80 12/18/16 03:29 68 18 50 12/18/16 01:13 62 18 50 12/18/16 00:00 50 12/18/16 00:00 98.8 73 18 98/57 99 Mechanical Ventilator 50 12/17/16 23:29 73 18 50 Intake and Output 12/18/16 12/19/16 19:00 07:00 Intake Total 480 ml Output Total 173 ml Balance 307 ml Free Water 150 ml Tube Feeding 330 ml Hemodialysis UF 173 ml # Voids 1 # Bowel Movements 4 Laboratory Tests 12/18/16 04:00: White Blood Count 8.1, Red Blood Count 2.58L, Hemoglobin 8.1L, Hematocrit 25.9L , Mean Corpuscular Volume 101H, Mean Corpuscular Hemoglobin 31.5H, Mean Corpuscular Hemoglobin Concent 31.3L, Red Cell Distribution Width 19.8H, Platelet Count 234, Mean Platelet Volume 5.7L, Neutrophils (%) (Auto) 64.1, Lymphocytes (%) (Auto) 20.2, Monocytes (%) (Auto) 11.1H, Eosinophils (%) (Auto) 3.3H, Basophils (%) (Auto) 1.4, Sodium Level 144, Potassium Level 3.1L, Chloride Level 101, Carbon Dioxide Level 35H, Anion Gap 8, Blood Urea Nitrogen 20H, Creatinine 3.1H, Estimat Glomerular Filtration Rate , Glucose Level 92, Calcium Level 8.3L, Total Bilirubin 1.6H, Direct Bilirubin 0.8H, Aspartate Amino Transf (AST/SGOT) 19, Alanine Aminotransferase (ALT/SGPT) < 6L, Alkaline Phosphatase 73, Total Protein 7.4, Albumin 1.9L, Globulin 5.5, Albumin/Globulin Ratio 0.3L Height (Feet): 5 Height (Inches): 3.00 Weight (Pounds): 382 General Appearance: no apparent distress EENT: normal ENT inspection Neck: normal alignment Respiratory/Chest: decreased breath sounds Extremities: non-tender Serafin Haines Dec 18, 2016 22:15
[2016-12-19] VITALS: BP 115/55
[2016-12-19 04:00] VITALS: BP 107/69
[2016-12-19 05:24] LABS: MEAN CORPUSCULAR HEMOGLOBIN 31.5 PG (27.0-31.0); MEAN CORPUSCULAR HGB CONC 30.8 G/DL (32.0-36.0); MEAN CORPUSCULAR VOLUME 102 FL (80-99); MEAN PLATELET VOLUME 5.3 FL (6.5-10.1); PLATELET COUNT 216 K/UL (150-450); RED BLOOD COUNT 2.45 M/UL (4.20-5.40); RED CELL DISTRIBUTION WIDTH 19.5 % (11.6-14.8); WHITE BLOOD COUNT 7.6 K/UL (4.8-10.8)
[2016-12-19 05:40] LABS: ALANINE AMINOTRANSFERASE < 6 U/L (12-78); ALBUMIN/GLOBULIN RATIO 0.4 (1.0-2.7); ANION GAP 6 mmol/L (5-15); ASPARTATE AMINO TRANSFERASE 21 U/L (15-37); CALCIUM 8.4 MG/DL (8.5-10.1); CARBON DIOXIDE 35 MMOL/L (21-32); CHLORIDE 103 MMOL/L (98-107); CREATININE 2.4 MG/DL (0.55-1.30); MAGNESIUM 1.5 MG/DL (1.8-2.4); PHOSPHORUS 2.5 MG/DL (2.5-4.9); POTASSIUM 3.2 MMOL/L (3.5-5.1); SODIUM 144 MMOL/L (136-145); TOTAL PROTEIN 7.3 G/DL (6.4-8.2)
[2016-12-19] MEDS: Midodrine 10mg tab GT SCH ×3 (06:08→21:41)
[2016-12-19 06:30] LABS: BILIRUBIN,DIRECT 0.7 MG/DL (0.0-0.3)
--- NOTE | 2016-12-19 06:49 | General Progress Note ---
Assessment/Plan Problem List: (1) Positive occult stool blood test ICD Codes: R19.5 - Other fecal abnormalities SNOMED: 18199172, 274227830 (2) Morbid obesity ICD Codes: E66.01 - Morbid (severe) obesity due to excess calories SNOMED: 276148015, [id number] (3) Atrial fibrillation ICD Codes: I48.91 - Unspecified atrial fibrillation SNOMED: 38757730 (4) CHF (congestive heart failure) ICD Codes: I50.9 - Heart failure, unspecified SNOMED: 26466552 (5) PEG (percutaneous endoscopic gastrostomy) adjustment/replacement/removal ICD Codes: Z43.1 - Encounter for attention to gastrostomy SNOMED: 312140891, 818857407 Assessment/Plan s/p PEG GTF tolerated fu labs Subjective ROS Limited/Unobtainable: No Allergies: Coded Allergies: AMOXICILLIN (Verified Allergy, Mild, RASH, 09/30/16) PENICILLINS (Unverified Allergy, Unknown, 09/30/16) Subjective no event Objective Last 24 Hour Vital Signs Date Time Temp Pulse Resp B/P (MAP) Pulse Ox O2 Delivery O2 Flow Rate FiO2 12/19/16 05:22 66 18 50 12/19/16 04:00 98.2 70 18 107/69 97 Mechanical Ventilator 50 12/19/16 04:00 50 12/19/16 04:00 67 12/19/16 03:28 70 18 50 12/19/16 01:06 71 18 50 12/19/16 00:00 98.1 71 18 115/55 98 Mechanical Ventilator 50 12/19/16 00:00 70 12/18/16 22:56 77 18 50 12/18/16 21:27 71 18 50 12/18/16 20:16 90 18 50 12/18/16 20:00 68 12/18/16 20:00 97.5 74 18 93/49 98 Mechanical Ventilator 50 12/18/16 20:00 50 12/18/16 19:10 79 18 50 12/18/16 19:00 Mechanical Ventilator 50 12/18/16 19:00 99.0 73 20 103/62 Mechanical Ventilator 50 12/18/16 17:00 81 18 50 12/18/16 16:01 99.8 66 18 97/50 98 Mechanical Ventilator 50 12/18/16 16:00 50 12/18/16 16:00 72 12/18/16 15:30 Non-Rebreather 50 12/18/16 15:22 78 18 50 12/18/16 12:45 73 18 50 12/18/16 12:00 73 12/18/16 12:00 50 12/18/16 12:00 97.0 62 18 111/61 98 Mechanical Ventilator 50 12/18/16 10:49 72 18 50 12/18/16 08:36 77 18 50 12/18/16 08:00 50 12/18/16 08:00 62 12/18/16 08:00 97.0 79 18 124/44 98 Mechanical Ventilator 50 12/18/16 06:51 75 18 50 Laboratory Tests 12/19/16 04:30: White Blood Count 7.6, Red Blood Count 2.45L, Hemoglobin 7.7L, Hematocrit 25.0L , Mean Corpuscular Volume 102H, Mean Corpuscular Hemoglobin 31.5H, Mean Corpuscular Hemoglobin Concent 30.8L, Red Cell Distribution Width 19.5H, Platelet Count 216, Mean Platelet Volume 5.3L, Neutrophils (%) (Auto) , Lymphocytes (%) (Auto) , Monocytes (%) (Auto) , Eosinophils (%) (Auto) , Basophils (%) (Auto) , Sodium Level 144, Potassium Level 3.2L, Chloride Level 103, Carbon Dioxide Level 35H, Anion Gap 6, Blood Urea Nitrogen 15, Creatinine 2.4H, Estimat Glomerular Filtration Rate , Glucose Level 99, Calcium Level 8.4L , Phosphorus Level 2.5, Magnesium Level 1.5L, Total Bilirubin 1.6H, Direct Bilirubin 0.7H, Aspartate Amino Transf (AST/SGOT) 21, Alanine Aminotransferase ( ALT/SGPT) < 6L, Alkaline Phosphatase 73, Total Protein 7.3, Albumin 1.9L, Globulin 5.4, Albumin/Globulin Ratio 0.4L Height (Feet): 5 Height (Inches): 3.00 Weight (Pounds): 382 General Appearance: no apparent distress EENT: normal ENT inspection Neck: supple Cardiovascular: normal rate Respiratory/Chest: decreased breath sounds Abdomen: normal bowel sounds, non tender, soft Extremities: non-tender RUDDY RODRIGUEZ Dec 19, 2016 06:49
[2016-12-19 08:00] VITALS: BP 109/67
--- NOTE | 2016-12-19 08:49 | Nephrology Progress Note ---
Assessment/Plan Problem List: (1) Renal failure Assessment: CKD + ACUTE (2) Acute and chronic respiratory failure (3) CHF (congestive heart failure) (4) Morbid obesity (5) Atrial fibrillation Assessment Stable from renal stand CKD- and acute renal failure - Acute respiratory failure s/p Trach Obese COPD , CHF, Diastolic MINA UTI Anemia GI Bleed, GI bleeding At Fib Pulm HTN h/o Low B12 Plan Plan: Now has PEG- HD last 12/18 K supplement as needed on EPOGEN 24 H urine collection in process: CrCl 6 Monitor renal parameters- optimize cardiac and pulm status pulmonary support- transfuse as needed ? DC planning post PEG, placement is complicated Subjective ROS Limited/Unobtainable: No Objective Objective Last 24 Hour Vital Signs Date Time Temp Pulse Resp B/P (MAP) Pulse Ox O2 Delivery O2 Flow Rate FiO2 12/19/16 08:00 50 12/19/16 06:40 66 18 50 12/19/16 05:22 66 18 50 12/19/16 04:00 98.2 70 18 107/69 97 Mechanical Ventilator 50 12/19/16 04:00 50 12/19/16 04:00 67 12/19/16 03:28 70 18 50 12/19/16 01:06 71 18 50 12/19/16 00:00 98.1 71 18 115/55 98 Mechanical Ventilator 50 12/19/16 00:00 70 12/18/16 22:56 77 18 50 12/18/16 21:27 71 18 50 12/18/16 20:16 90 18 50 12/18/16 20:00 68 12/18/16 20:00 97.5 74 18 93/49 98 Mechanical Ventilator 50 12/18/16 20:00 50 12/18/16 19:10 79 18 50 12/18/16 19:00 Mechanical Ventilator 50 12/18/16 19:00 99.0 73 20 103/62 Mechanical Ventilator 50 12/18/16 17:00 81 18 50 12/18/16 16:01 99.8 66 18 97/50 98 Mechanical Ventilator 50 12/18/16 16:00 50 12/18/16 16:00 72 12/18/16 15:30 Non-Rebreather 50 12/18/16 15:22 78 18 50 12/18/16 12:45 73 18 50 11/11/17 12:00 73 12/18/16 12:00 50 12/18/16 12:00 97.0 62 18 111/61 98 Mechanical Ventilator 50 12/18/16 10:49 72 18 50 Intake and Output 12/19/16 12/20/16 19:00 07:00 # Bowel Movements 1 Laboratory Tests 12/19/16 04:30: White Blood Count 7.6, Red Blood Count 2.45L, Hemoglobin 7.7L, Hematocrit 25.0L , Mean Corpuscular Volume 102H, Mean Corpuscular Hemoglobin 31.5H, Mean Corpuscular Hemoglobin Concent 30.8L, Red Cell Distribution Width 19.5H, Platelet Count 216, Mean Platelet Volume 5.3L, Neutrophils (%) (Auto) , Lymphocytes (%) (Auto) , Monocytes (%) (Auto) , Eosinophils (%) (Auto) , Basophils (%) (Auto) , Sodium Level 144, Potassium Level 3.2L, Chloride Level 103, Carbon Dioxide Level 35H, Anion Gap 6, Blood Urea Nitrogen 15, Creatinine 2.4H, Estimat Glomerular Filtration Rate , Glucose Level 99, Calcium Level 8.4L , Phosphorus Level 2.5, Magnesium Level 1.5L, Total Bilirubin 1.6H, Direct Bilirubin 0.7H, Aspartate Amino Transf (AST/SGOT) 21, Alanine Aminotransferase ( ALT/SGPT) < 6L, Alkaline Phosphatase 73, Total Protein 7.3, Albumin 1.9L, Globulin 5.4, Albumin/Globulin Ratio 0.4L Height (Feet): 5 Height (Inches): 3.00 Weight (Pounds): 386 General Appearance: no apparent distress Respiratory/Chest: decreased breath sounds Abdomen: soft Objective edema andreias COURTNEY LOPEZ Dec 19, 2016 08:49
--- NOTE | 2016-12-19 08:50 | Infectious Diseases Prog Note ---
Assessment/Plan Assessment/Plan A. Leukocytosis resolved Cellulitis of legs s/p Rx VDRF s/p revision tracheostomy COPD CKD, ESRD Anemia Morbid obesity Diastolic CHF P: Observe off antibiotic Subjective ROS Limited/Unobtainable: Yes Allergies: Coded Allergies: AMOXICILLIN (Verified Allergy, Mild, RASH, 09/30/16) PENICILLINS (Unverified Allergy, Unknown, 09/30/16) Objective Vital Signs Last 24 Hour Vital Signs Date Time Temp Pulse Resp B/P (MAP) Pulse Ox O2 Delivery O2 Flow Rate FiO2 12/19/16 08:00 50 12/19/16 06:40 66 18 50 12/19/16 05:22 66 18 50 12/19/16 04:00 98.2 70 18 107/69 97 Mechanical Ventilator 50 12/19/16 04:00 50 12/19/16 04:00 67 12/19/16 03:28 70 18 50 12/19/16 01:06 71 18 50 12/19/16 00:00 98.1 71 18 115/55 98 Mechanical Ventilator 50 12/19/16 00:00 70 12/18/16 22:56 77 18 50 12/18/16 21:27 71 18 50 12/18/16 20:16 90 18 50 12/18/16 20:00 68 12/18/16 20:00 97.5 74 18 93/49 98 Mechanical Ventilator 50 12/18/16 20:00 50 12/18/16 19:10 79 18 50 12/18/16 19:00 Mechanical Ventilator 50 12/18/16 19:00 99.0 73 20 103/62 Mechanical Ventilator 50 12/18/16 17:00 81 18 50 12/18/16 16:01 99.8 66 18 97/50 98 Mechanical Ventilator 50 12/18/16 16:00 50 12/18/16 16:00 72 12/18/16 15:30 Non-Rebreather 50 12/18/16 15:22 78 18 50 12/18/16 12:45 73 18 50 12/18/16 12:00 73 12/18/16 12:00 50 12/18/16 12:00 97.0 62 18 111/61 98 Mechanical Ventilator 50 12/18/16 10:49 72 18 50 Height (Feet): 5 Height (Inches): 3.00 Weight (Pounds): 386 General Appearance: no acute distress HEENT: status post trach Respiratory/Chest: decreased breath sounds, other - on ventilator Cardiovascular: normal rate, other - RIJ HD line Abdomen: soft, non tender, other - GT feeding Skin: other - edema of legs Neurologic/Psychiatric: other - sleeping Laboratory Tests Test 12/19/16 04:30 White Blood Count 7.6 K/UL (4.8-10.8) Red Blood Count 2.45 M/UL (4.20-5.40) L Hemoglobin 7.7 G/DL (12.0-16.0) L Hematocrit 25.0 % (37.0-47.0) L Mean Corpuscular Volume 102 FL (80-99) H Mean Corpuscular Hemoglobin 31.5 PG (27.0-31.0) H Mean Corpuscular Hemoglobin Concent 30.8 G/DL (32.0-36.0) L Red Cell Distribution Width 19.5 % (11.6-14.8) H Platelet Count 216 K/UL (150-450) Mean Platelet Volume 5.3 FL (6.5-10.1) L Neutrophils (%) (Auto) % (45.0-75.0) Lymphocytes (%) (Auto) % (20.0-45.0) Monocytes (%) (Auto) % (1.0-10.0) Eosinophils (%) (Auto) % (0.0-3.0) Basophils (%) (Auto) % (0.0-2.0) Sodium Level 144 MMOL/L (136-145) Potassium Level 3.2 MMOL/L (3.5-5.1) L Chloride Level 103 MMOL/L (98-107) Carbon Dioxide Level 35 MMOL/L (21-32) H Anion Gap 6 mmol/L (5-15) Blood Urea Nitrogen 15 mg/dL (7-18) Creatinine 2.4 MG/DL (0.55-1.30) H Estimat Glomerular Filtration Rate mL/min (>60) Glucose Level 99 MG/DL (74-106) Calcium Level 8.4 MG/DL (8.5-10.1) L Phosphorus Level 2.5 MG/DL (2.5-4.9) Magnesium Level 1.5 MG/DL (1.8-2.4) L Total Bilirubin 1.6 MG/DL (0.2-1.0) H Direct Bilirubin 0.7 MG/DL (0.0-0.3) H Aspartate Amino Transf (AST/SGOT) 21 U/L (15-37) Alanine Aminotransferase (ALT/SGPT) < 6 U/L (12-78) L Alkaline Phosphatase 73 U/L (46-116) Total Protein 7.3 G/DL (6.4-8.2) Albumin 1.9 G/DL (3.4-5.0) L Globulin 5.4 g/dL Albumin/Globulin Ratio 0.4 (1.0-2.7) L Current Medications Medications (Trade) Dose Ordered Sig/Kalyn Route PRN Reason Start Time Stop Time Status Last Admin Dose Admin Allopurinol (Zyloprim) 100 mg DAILY ORAL 12/15/16 09:00 01/14/17 08:59 12/18/16 09:05 Chlorhexidine Gluconate (Marni-Hex 2%) 1 applic Q24H TOPIC 12/03/16 20:00 12/27/16 19:59 12/18/16 20:20 Diphenhydramine HCl (Benadryl) 25 mg Q6H PRN IVP Itching 12/03/16 15:00 12/19/16 14:59 Docusate Sodium (Colace) 100 mg TWICE A DAY GT 12/04/16 09:00 01/03/17 08:59 12/18/16 09:04 Magnesium Sulfate 100 ml @ 100 mls/hr Q1H IVPB 12/19/16 08:00 12/19/16 09:59 Midodrine (Pro-Amatine) 10 mg EVERY 8 HOURS GT 12/12/16 14:00 01/11/17 13:59 12/19/16 06:08 Polyethylene Glycol (Miralax) 17 gm BEDTIME ORAL 12/12/16 21:30 01/11/17 21:29 12/15/16 21:00 Potassium Chloride (KCl 10% 40mEq Oral solution) 40 meq DAILY NG 12/19/16 09:00 01/18/17 08:59 Ranitidine HCl (Zantac) 150 mg DAILY GT 12/17/16 09:00 01/16/17 08:59 12/18/16 09:05 CARY ESTES Dec 19, 2016:50
--- NOTE | 2016-12-19 09:27 | Pulmonology Progress Note ---
Assessment/Plan Problems: (1) Chronic respiratory failure (2) Anasarca (3) ATN (acute tubular necrosis) (4) Anemia (5) Peripheral edema (6) Pickwickian syndrome (7) MINA (obstructive sleep apnea) (8) Morbid obesity Respiratory: monitor respiratory rate, adjust FIO2 Cardiac: continue pressors, continue to monitor HR/BP Renal: F/U I&O, keep IV fluid, check electrolytes Infectious Disease: check cultures, continue antibiotics, add antibiotics Gastrointestinal: continue feedings/current rate Endocrine: monitor blood sugar, continue sliding scale insulin Hematologic: monitor H/H, transfuse if hgb<8.5 Neurologic: PRN Ativan, keep patient comfortable Prophylaxis: Protonix, Heparin Notes Reviewed: cardio, renal 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: consultants, family independence case manager Subjective ROS Limited/Unobtainable: No Constitutional: Reports: no symptoms HEENT: Repors: no symptoms Respiratory: Reports: no symptoms Cardiovascular: Reports: no symptoms Allergies: Coded Allergies: AMOXICILLIN (Verified Allergy, Mild, RASH, 09/30/16) PENICILLINS (Unverified Allergy, Unknown, 09/30/16) Objective Last 24 Hour Vital Signs Date Time Temp Pulse Resp B/P (MAP) Pulse Ox O2 Delivery O2 Flow Rate FiO2 12/19/16 08:00 98.1 65 18 109/67 97 Mechanical Ventilator 50 12/19/16 08:00 50 12/19/16 06:40 66 18 50 12/19/16 05:22 66 18 50 12/19/16 04:00 98.2 70 18 107/69 97 Mechanical Ventilator 50 12/19/16 04:00 50 12/19/16 04:00 67 12/19/16 03:28 70 18 50 12/19/16 01:06 71 18 50 12/19/16 00:00 98.1 71 18 115/55 98 Mechanical Ventilator 50 12/19/16 00:00 70 12/18/16 22:56 77 18 50 12/18/16 21:27 71 18 50 12/18/16 20:16 90 18 50 12/18/16 20:00 68 12/18/16 20:00 97.5 74 18 93/49 98 Mechanical Ventilator 50 12/18/16 20:00 50 12/18/16 19:10 79 18 50 12/18/16 19:00 Mechanical Ventilator 50 12/18/16 19:00 99.0 73 20 103/62 Mechanical Ventilator 50 12/18/16 17:00 81 18 50 12/18/16 16:01 99.8 66 18 97/50 98 Mechanical Ventilator 50 12/18/16 16:00 50 12/18/16 16:00 72 12/18/16 15:30 Non-Rebreather 50 12/18/16 15:22 78 18 50 12/18/16 12:45 73 18 50 12/18/16 12:00 73 12/18/16 12:00 50 12/18/16 12:00 97.0 62 18 111/61 98 Mechanical Ventilator 50 12/18/16 10:49 72 18 50 Intake and Output 12/19/16 12/20/16 19:00 07:00 # Bowel Movements 1 General Appearance: WD/WN HEENT: normocephalic, atraumatic Respiratory/Chest: chest wall non-tender, lungs clear Cardiovascular: normal rate Abdomen: normal bowel sounds, soft, non tender Extremities: no cyanosis Skin: no rash, no lesions Laboratory Tests 12/19/16 04:30: White Blood Count 7.6, Red Blood Count 2.45L, Hemoglobin 7.7L, Hematocrit 25.0L , Mean Corpuscular Volume 102H, Mean Corpuscular Hemoglobin 31.5H, Mean Corpuscular Hemoglobin Concent 30.8L, Red Cell Distribution Width 19.5H, Platelet Count 216, Mean Platelet Volume 5.3L, Neutrophils (%) (Auto) , Lymphocytes (%) (Auto) , Monocytes (%) (Auto) , Eosinophils (%) (Auto) , Basophils (%) (Auto) , Sodium Level 144, Potassium Level 3.2L, Chloride Level 103, Carbon Dioxide Level 35H, Anion Gap 6, Blood Urea Nitrogen 15, Creatinine 2.4H, Estimat Glomerular Filtration Rate , Glucose Level 99, Calcium Level 8.4L , Phosphorus Level 2.5, Magnesium Level 1.5L, Total Bilirubin 1.6H, Direct Bilirubin 0.7H, Aspartate Amino Transf (AST/SGOT) 21, Alanine Aminotransferase ( ALT/SGPT) < 6L, Alkaline Phosphatase 73, Total Protein 7.3, Albumin 1.9L, Globulin 5.4, Albumin/Globulin Ratio 0.4L Current Medications Medications (Trade) Dose Ordered Sig/Kalyn Route PRN Reason Start Time Stop Time Status Last Admin Dose Admin Allopurinol (Zyloprim) 100 mg DAILY ORAL 12/15/16 09:00 01/14/17 08:59 12/18/16 09:05 Chlorhexidine Gluconate (Marni-Hex 2%) 1 applic Q24H TOPIC 12/03/16 20:00 12/27/16 19:59 12/18/16 20:20 Diphenhydramine HCl (Benadryl) 25 mg Q6H PRN IVP Itching 12/03/16 15:00 12/19/16 14:59 Docusate Sodium (Colace) 100 mg TWICE A DAY GT 12/04/16 09:00 01/03/17 08:59 12/18/16 09:04 Magnesium Sulfate 100 ml @ 100 mls/hr Q1H IVPB 12/19/16 08:00 12/19/16 09:59 Midodrine (Pro-Amatine) 10 mg EVERY 8 HOURS GT 12/12/16 14:00 01/11/17 13:59 12/19/16 06:08 Polyethylene Glycol (Miralax) 17 gm BEDTIME ORAL 12/12/16 21:30 01/11/17 21:29 12/15/16 21:00 Potassium Chloride (KCl 10% 40mEq Oral solution) 40 meq DAILY NG 12/19/16 09:00 01/18/17 08:59 Ranitidine HCl (Zantac) 150 mg DAILY GT 12/17/16 09:00 01/16/17 08:59 12/18/16 09:05 ARASH MIRANDA Dec 19, 2016 09:27
[2016-12-19] MEDS: Allopurinol 100mg Tab ORAL SCH (09:52)
[2016-12-19] MEDS: KCl 10% 40mEq/30ml liquid NG SCH (09:52)
[2016-12-19] MEDS: Docusate 100mg/10ml Liq GT SCH ×2 (09:52→18:28)
[2016-12-19 12:00] VITALS: BP 126/59
--- NOTE | 2016-12-19 14:49 | Cardiology Progress Note ---
Assessment/Plan Problem List: (1) Chronic respiratory failure (2) Anasarca (3) Anemia (4) Cellulitis (5) Pickwickian syndrome (6) MINA (obstructive sleep apnea) (7) Atrial fibrillation (8) Morbid obesity Status: stable, progressing Status Narrative Pt in AF w/ controlled ventricular rates, off meds. Vent-dependent, now w/ trach Remains w/ anasarca On hemodialysis for fluid removal. Assessment/Plan Continue fluid removal w/ HD, as tolerated . Continue high dose proamitine to maintain BP. Hold anticoagulation despite AF, as pt w/ anemia and heme positive stools. [facility]. Subjective Subjective Pt awake, eating ice chips, on vent. No c/o pain Objective Last 24 Hour Vital Signs Date Time Temp Pulse Resp B/P (MAP) Pulse Ox O2 Delivery O2 Flow Rate FiO2 12/19/16 14:15 76 18 50 12/19/16 12:00 97.9 76 18 126/59 98 Mechanical Ventilator 50 12/19/16 12:00 50 12/19/16 12:00 67 12/19/16 10:55 82 19 50 12/19/16 09:10 68 18 50 12/19/16 08:00 98.1 65 18 109/67 97 Mechanical Ventilator 50 12/19/16 08:00 50 12/19/16 08:00 61 12/19/16 06:40 66 18 50 12/19/16 05:22 66 18 50 12/19/16 04:00 98.2 70 18 107/69 97 Mechanical Ventilator 50 12/19/16 04:00 50 12/19/16 04:00 67 12/19/16 03:28 70 18 50 12/19/16 01:06 71 18 50 12/19/16 00:00 98.1 71 18 115/55 98 Mechanical Ventilator 50 12/19/16 00:00 70 12/18/16 22:56 77 18 50 12/18/16 21:27 71 18 50 12/18/16 20:16 90 18 50 12/18/16 20:00 68 12/18/16 20:00 97.5 74 18 93/49 98 Mechanical Ventilator 50 12/18/16 20:00 50 12/18/16 19:10 79 18 50 12/18/16 19:00 Mechanical Ventilator 50 12/18/16 19:00 99.0 73 20 103/62 Mechanical Ventilator 50 12/18/16 17:00 81 18 50 12/18/16 16:01 99.8 66 18 97/50 98 Mechanical Ventilator 50 12/18/16 16:00 50 12/18/16 16:00 72 12/18/16 15:30 Non-Rebreather 50 12/18/16 15:22 78 18 50 General Appearance: WD/WN, obese, on vent EENT: PERRL/EOMI Neck: supple, other - trach Rhythm: Afib Cardiovascular: normal rate, no gallop/murmur, irregularly irregular Respiratory/Chest: rhonchi - bilaterally - bilateral rhonchi anteriorly Abdomen: normal bowel sounds, non tender, soft, other - abdominal wall edema , 2+ pitting Extremities: moderate edema - moderate to severe pitting LE edema bilat. Bilat LE erythema., dressings. Intake and Output 12/19/16 12/20/16 18:59 06:59 Intake Total 210 ml Balance 210 ml Free Water 50 ml Tube Feeding 160 ml # Bowel Movements 2 Laboratory Tests Test 12/19/16 04:30 White Blood Count 7.6 K/UL (4.8-10.8) Red Blood Count 2.45 M/UL (4.20-5.40) L Hemoglobin 7.7 G/DL (12.0-16.0) L Hematocrit 25.0 % (37.0-47.0) L Mean Corpuscular Volume 102 FL (80-99) H Mean Corpuscular Hemoglobin 31.5 PG (27.0-31.0) H Mean Corpuscular Hemoglobin Concent 30.8 G/DL (32.0-36.0) L Red Cell Distribution Width 19.5 % (11.6-14.8) H Platelet Count 216 K/UL (150-450) Mean Platelet Volume 5.3 FL (6.5-10.1) L Neutrophils (%) (Auto) % (45.0-75.0) Lymphocytes (%) (Auto) % (20.0-45.0) Monocytes (%) (Auto) % (1.0-10.0) Eosinophils (%) (Auto) % (0.0-3.0) Basophils (%) (Auto) % (0.0-2.0) Sodium Level 144 MMOL/L (136-145) Potassium Level 3.2 MMOL/L (3.5-5.1) L Chloride Level 103 MMOL/L (98-107) Carbon Dioxide Level 35 MMOL/L (21-32) H Anion Gap 6 mmol/L (5-15) Blood Urea Nitrogen 15 mg/dL (7-18) Creatinine 2.4 MG/DL (0.55-1.30) H Estimat Glomerular Filtration Rate mL/min (>60) Glucose Level 99 MG/DL (74-106) Calcium Level 8.4 MG/DL (8.5-10.1) L Phosphorus Level 2.5 MG/DL (2.5-4.9) Magnesium Level 1.5 MG/DL (1.8-2.4) L Total Bilirubin 1.6 MG/DL (0.2-1.0) H Direct Bilirubin 0.7 MG/DL (0.0-0.3) H Aspartate Amino Transf (AST/SGOT) 21 U/L (15-37) Alanine Aminotransferase (ALT/SGPT) < 6 U/L (12-78) L Alkaline Phosphatase 73 U/L (46-116) Total Protein 7.3 G/DL (6.4-8.2) Albumin 1.9 G/DL (3.4-5.0) L Globulin 5.4 g/dL Albumin/Globulin Ratio 0.4 (1.0-2.7) L STACEY WATERS Dec 19, 2016 14:49
--- NOTE | 2016-12-19 14:59 | General Progress Note ---
Assessment/Plan Assessment/Plan This is a 76-year-old, morbidly obese female, admitted with anasarca and cellulitis of the lower leg. The patient was admitted to the directr observation unit on the monitor with the following medical problems. now transfered to icu as of 11-14-16, co of pruritis 1. Anasarca. She appears to be markedly swollen. She will need diuresis. Place the patient on Lasix 20 mg intravenous for now q.12 hours. Cardiology and Pulmonary on the case. We will follow orders. Check laboratory studies daily. Lasix drip was discontinued in am, HD started 2. Chronic hypercapnic respiratory failure. Continue with vent support per Pulmonary. will discuss with pulmonary regarding trach issues 3 anemia. s./p transfusion of PRBC Continue monitoring CBC daily. patient to start Procrit per nephrology 4. Pulmonary hypertension. hold Eliquis as patient is ob positive 5. Chronic kidney disease. On HD for now per nephrology. 6. DVT prophylaxis. scds 7. nutrition: patient didn't tolerate NGT placement, patient is now s/p PEG placement, tolerating tube feeding 8. Alkalosis: resolved 9. Generalized anxiety: Ativan prn, counselled for 15min 10. constipation: prn enema, continue with Colace and MiraLAX had revision of trach on 11-23-16 11. Anemia: finished transfusion of one unit of PRBC 12/13/16, may need transfusion if hgb drops further 12. abdominal Pain: probable constipation, will order Miralax and colace fu serial abdominal exams, am labs 13. leg blisster: Xeroform dressing 14. VTE prophylaxis: SCDs 15. hypokalemia: replace per nephrology Benadryl 25 mg iv q 6 prn itching tolerating tube feeding continue HD per nephrology trach revision done by Dr. Powell transfused one unit of PRBC on 12-13-16, 12-14-16 discussed with nursing staff HD per nephrology failed swallow study pt ot HD was postponed as bp was low awaiting transfer to subacute hospital such as [facility] for VTE prophylaxis disucssed with nurse Subjective Date patient seen: Dec 19, 2016 Allergies: Coded Allergies: AMOXICILLIN (Verified Allergy, Mild, RASH, 09/30/16) PENICILLINS (Unverified Allergy, Unknown, 09/30/16) All Systems: reviewed and negative except above Subjective had transfusion of one unit of PRBC for anemia again today Objective Last 24 Hour Vital Signs Date Time Temp Pulse Resp B/P (MAP) Pulse Ox O2 Delivery O2 Flow Rate FiO2 12/19/16 14:15 76 18 50 12/19/16 12:00 97.9 76 18 126/59 98 Mechanical Ventilator 50 12/19/16 12:00 50 12/19/16 12:00 67 12/19/16 10:55 82 19 50 12/19/16 09:10 68 18 50 12/19/16 08:00 98.1 65 18 109/67 97 Mechanical Ventilator 50 12/19/16 08:00 50 12/19/16 08:00 61 12/19/16 06:40 66 18 50 12/19/16 05:22 66 18 50 12/19/16 04:00 98.2 70 18 107/69 97 Mechanical Ventilator 50 12/19/16 04:00 50 12/19/16 04:00 67 12/19/16 03:28 70 18 50 12/19/16 01:06 71 18 50 12/19/16 00:00 98.1 71 18 115/55 98 Mechanical Ventilator 50 12/19/16 00:00 70 12/18/16 22:56 77 18 50 12/18/16 21:27 71 18 50 12/18/16 20:16 90 18 50 12/18/16 20:00 68 12/18/16 20:00 97.5 74 18 93/49 98 Mechanical Ventilator 50 12/18/16 20:00 50 12/18/16 19:10 79 18 50 12/18/16 19:00 Mechanical Ventilator 50 12/18/16 19:00 99.0 73 20 103/62 Mechanical Ventilator 50 12/18/16 17:00 81 18 50 12/18/16 16:01 99.8 66 18 97/50 98 Mechanical Ventilator 50 12/18/16 16:00 50 12/18/16 16:00 72 12/18/16 15:30 Non-Rebreather 50 12/18/16 15:22 78 18 50 Intake and Output 12/19/16 12/20/16 18:59 06:59 Intake Total 210 ml Balance 210 ml Free Water 50 ml Tube Feeding 160 ml # Bowel Movements 2 Laboratory Tests 12/19/16 04:30: White Blood Count 7.6, Red Blood Count 2.45L, Hemoglobin 7.7L, Hematocrit 25.0L , Mean Corpuscular Volume 102H, Mean Corpuscular Hemoglobin 31.5H, Mean Corpuscular Hemoglobin Concent 30.8L, Red Cell Distribution Width 19.5H, Platelet Count 216, Mean Platelet Volume 5.3L, Neutrophils (%) (Auto) , Lymphocytes (%) (Auto) , Monocytes (%) (Auto) , Eosinophils (%) (Auto) , Basophils (%) (Auto) , Sodium Level 144, Potassium Level 3.2L, Chloride Level 103, Carbon Dioxide Level 35H, Anion Gap 6, Blood Urea Nitrogen 15, Creatinine 2.4H, Estimat Glomerular Filtration Rate , Glucose Level 99, Calcium Level 8.4L , Phosphorus Level 2.5, Magnesium Level 1.5L, Total Bilirubin 1.6H, Direct Bilirubin 0.7H, Aspartate Amino Transf (AST/SGOT) 21, Alanine Aminotransferase ( ALT/SGPT) < 6L, Alkaline Phosphatase 73, Total Protein 7.3, Albumin 1.9L, Globulin 5.4, Albumin/Globulin Ratio 0.4L Height (Feet): 5 Height (Inches): 3.00 Weight (Pounds): 386 General Appearance: WD/WN, morbidly obese EENT: PERRL/EOMI, pharynx normal Neck: non-tender, supple Respiratory/Chest: chest wall non-tender, normal breath sounds, no respiratory distress Abdomen: distended Extremities: swelling Edema: 2+ Arm (L), 2+ Arm (R), 3+ Leg (L), 3+ Leg (R), 3+ Pedal (L), 3+ Pedal ( R), 3+ Generalized Edema: moderate edema 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
[2016-12-19 16:00] VITALS: BP 110/61
[2016-12-19 20:00] VITALS: BP 115/64
[2016-12-19] MEDS: Dyna-Hex 2% Top Sol 2oz TOPIC SCH (20:04)
[2016-12-19] MEDS: Miralax 17gm pkt ORAL SCH (21:00)
--- NOTE | 2016-12-19 21:28 | General Progress Note ---
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 INR improving. Continue to monitor #. Anemia secondary to chronic disease. Continue to closely monitor. Work up reviewed --> s/p multiple transfusions. watch counts, transfuse if hgb is below 7. --> ferritin is elevated # Positive occult blood. r/o gi bleed. gi following #. Anemia of kidney disease. Nephrology service following #. PEG tube placement #. Chronic ventilator dependent #. Permanent atrial fibrillation. #. Cellulitis and chronic lymphedema of the bilateral lower extremities. #. Congestive heart failure. Subjective ROS Limited/Unobtainable: Yes Allergies: Coded Allergies: AMOXICILLIN (Verified Allergy, Mild, RASH, 09/30/16) PENICILLINS (Unverified Allergy, Unknown, 09/30/16) Subjective afebrile, tolerating feeds Objective Last 24 Hour Vital Signs Date Time Temp Pulse Resp B/P (MAP) Pulse Ox O2 Delivery O2 Flow Rate FiO2 12/19/16 21:14 84 18 50 12/19/16 20:00 99.2 83 18 115/64 95 Mechanical Ventilator 12/19/16 20:00 50 12/19/16 19:14 89 18 50 12/19/16 16:55 79 18 50 12/19/16 16:00 98.0 67 18 110/61 99 Mechanical Ventilator 50 12/19/16 16:00 62 12/19/16 16:00 50 12/19/16 16:00 66 19 50 12/19/16 14:15 76 18 50 12/19/16 12:00 97.9 76 18 126/59 98 Mechanical Ventilator 50 12/19/16 12:00 50 12/19/16 12:00 67 12/19/16 10:55 82 19 50 12/19/16 09:10 68 18 50 12/19/16 08:00 98.1 65 18 109/67 97 Mechanical Ventilator 50 12/19/16 08:00 50 12/19/16 08:00 61 12/19/16 06:40 66 18 50 12/19/16 05:22 66 18 50 12/19/16 04:00 98.2 70 18 107/69 97 Mechanical Ventilator 50 12/19/16 04:00 50 12/19/16 04:00 67 12/19/16 03:28 70 18 50 12/19/16 01:06 71 18 50 12/19/16 00:00 98.1 71 18 115/55 98 Mechanical Ventilator 50 12/19/16 00:00 70 12/18/16 22:56 77 18 50 Intake and Output 12/19/16 12/20/16 19:00 07:00 Intake Total 580 ml 40 ml Balance 580 ml 40 ml Free Water 100 ml Tube Feeding 480 ml 40 ml # Voids 2 1 # Bowel Movements 4 Laboratory Tests 12/19/16 04:30: White Blood Count 7.6, Red Blood Count 2.45L, Hemoglobin 7.7L, Hematocrit 25.0L , Mean Corpuscular Volume 102H, Mean Corpuscular Hemoglobin 31.5H, Mean Corpuscular Hemoglobin Concent 30.8L, Red Cell Distribution Width 19.5H, Platelet Count 216, Mean Platelet Volume 5.3L, Neutrophils (%) (Auto) , Lymphocytes (%) (Auto) , Monocytes (%) (Auto) , Eosinophils (%) (Auto) , Basophils (%) (Auto) , Sodium Level 144, Potassium Level 3.2L, Chloride Level 103, Carbon Dioxide Level 35H, Anion Gap 6, Blood Urea Nitrogen 15, Creatinine 2.4H, Estimat Glomerular Filtration Rate , Glucose Level 99, Calcium Level 8.4L , Phosphorus Level 2.5, Magnesium Level 1.5L, Total Bilirubin 1.6H, Direct Bilirubin 0.7H, Aspartate Amino Transf (AST/SGOT) 21, Alanine Aminotransferase ( ALT/SGPT) < 6L, Alkaline Phosphatase 73, Total Protein 7.3, Albumin 1.9L, Globulin 5.4, Albumin/Globulin Ratio 0.4L Height (Feet): 5 Height (Inches): 3.00 Weight (Pounds): 386 General Appearance: no apparent distress EENT: normal ENT inspection Neck: normal alignment Cardiovascular: normal peripheral pulses Abdomen: normal bowel sounds Extremities: normal range of motion Neurologic: external grinder tender II-XII grossly normal Skin: normal pigmentation Serafin Haines Dec 19, 2016 21:28
[2016-12-20] VITALS: BP 110/77
[2016-12-20] MEDS ORDERED: Acetaminophen 650mg/20.3ml GT PRN ×2 (01:30)
[2016-12-20 04:00] VITALS: BP 118/78
[2016-12-20] MEDS: Midodrine 10mg tab GT SCH ×3 (05:50→22:03)
[2016-12-20 08:00] VITALS: BP 108/58
[2016-12-20] MEDS: Docusate 100mg/10ml Liq GT SCH ×2 (08:47→18:16)
[2016-12-20] MEDS: KCl 10% 40mEq/30ml liquid NG SCH (08:47)
[2016-12-20] MEDS: Allopurinol 100mg Tab ORAL SCH (08:47)
--- NOTE | 2016-12-20 08:51 | Nephrology Progress Note ---
Assessment/Plan Problem List: (1) Renal failure Assessment: CKD + ACUTE (2) Acute and chronic respiratory failure (3) CHF (congestive heart failure) (4) Morbid obesity (5) Atrial fibrillation Assessment Stable from renal stand CKD- and acute renal failure - Acute respiratory failure s/p Trach Obese COPD , CHF, Diastolic MINA UTI Anemia GI Bleed, GI bleeding At Fib Pulm HTN h/o Low B12 Plan Plan: no labs today Now has PEG- HD last 12/18 K supplement as needed on EPOGEN 24 H urine collection in process: CrCl 6 Monitor renal parameters- optimize cardiac and pulm status pulmonary support- transfuse as needed ? DC planning post PEG, placement is complicated Subjective ROS Limited/Unobtainable: No Objective Objective Last 24 Hour Vital Signs Date Time Temp Pulse Resp B/P (MAP) Pulse Ox O2 Delivery O2 Flow Rate FiO2 12/20/16 08:00 70 12/20/16 07:00 86 18 70 12/20/16 05:29 85 18 100 12/20/16 04:00 100 12/20/16 04:00 91 12/20/16 04:00 98.6 84 16 118/78 100 Mechanical Ventilator 12/20/16 03:38 91 18 100 12/20/16 03:00 96 12/20/16 02:03 98.8 12/20/16 01:11 84 18 100 12/20/16 00:22 100 12/20/16 00:22 100 12/20/16 00:00 101.5 89 16 110/77 100 Mechanical Ventilator 12/20/16 00:00 82 12/20/16 00:00 60 12/19/16 23:38 83 18 60 12/19/16 23:37 60 12/19/16 22:15 100 12/19/16 21:14 84 18 50 12/19/16 20:00 99.2 83 18 115/64 95 Mechanical Ventilator 12/19/16 20:00 81 12/19/16 20:00 50 12/19/16 19:14 89 18 50 12/19/16 16:55 79 18 50 12/19/16 16:00 98.0 67 18 110/61 99 Mechanical Ventilator 50 12/19/16 16:00 62 12/19/16 16:00 50 12/19/16 16:00 66 19 50 12/19/16 14:15 76 18 50 12/19/16 12:00 97.9 76 18 126/59 98 Mechanical Ventilator 50 12/19/16 12:00 50 12/19/16 12:00 67 12/19/16 10:55 82 19 50 12/19/16 09:10 68 18 50 Height (Feet): 5 Height (Inches): 3.00 Weight (Pounds): 392 General Appearance: no apparent distress Objective edema extrs COURTNEY LOPEZ Dec 20, 2016 08:51
--- NOTE | 2016-12-20 10:21 | General Progress Note ---
Assessment/Plan Status: progressing Assessment/Plan This is a 76-year-old, morbidly obese female, admitted with anasarca and cellulitis of the lower leg. The patient was admitted to the directr observation unit on the monitor with the following medical problems. now transfered to icu as of 11-14-16, co of pruritis 1. Anasarca. She appears to be markedly swollen. She will need diuresis. Place the patient on Lasix 20 mg intravenous for now q.12 hours. Cardiology and Pulmonary on the case. We will follow orders. Check laboratory studies daily. Lasix drip was discontinued in am, HD started 2. Chronic hypercapnic respiratory failure. Continue with vent support per Pulmonary. will discuss with pulmonary regarding trach issues 3 anemia. s./p transfusion of PRBC Continue monitoring CBC daily. patient to start Procrit per nephrology 4. Pulmonary hypertension. hold Eliquis as patient is ob positive 5. Chronic kidney disease. On HD for now per nephrology. 6. DVT prophylaxis. scds 7. nutrition: patient didn't tolerate NGT placement, patient is now s/p PEG placement, tolerating tube feeding 8. Alkalosis: resolved 9. Generalized anxiety: Ativan prn, counselled for 15min 10. constipation: prn enema, continue with Colace and MiraLAX had revision of trach on 11-23-16 11. Anemia: finished transfusion of one unit of PRBC 12/13/16, may need transfusion if hgb drops further 12. abdominal Pain: probable constipation, will order Miralax and colace fu serial abdominal exams, am labs 13. leg blisster: Xeroform dressing 14. VTE prophylaxis: SCDs 15. hypokalemia: replace per nephrology 16.fever: pancultured, will defer to ID regarding antibiotics Benadryl 25 mg iv q 6 prn itching tolerating tube feeding continue HD per nephrology trach revision done by Dr. Powell transfused one unit of PRBC on 12-13-16, 12-14-16 discussed with nursing staff HD per nephrology failed swallow study pt ot HD per Dr. Cummings awaiting transfer to subacute hospital such as [facility] for VTE prophylaxis disucssed with Dr. Anju benson cultures Subjective Date patient seen: Dec 20, 2016 Allergies: Coded Allergies: AMOXICILLIN (Verified Allergy, Mild, RASH, 8/24/17) PENICILLINS (Unverified Allergy, Unknown, 09/30/16) All Systems: reviewed and negative except above Subjective feverish overnight, pancultured, cxray ordered, patient has no complaints Objective Last 24 Hour Vital Signs Date Time Temp Pulse Resp B/P (MAP) Pulse Ox O2 Delivery O2 Flow Rate FiO2 12/20/16 09:10 86 18 70 12/20/16 08:00 70 12/20/16 08:00 82 12/20/16 08:00 98.4 89 18 108/58 99 Mechanical Ventilator 70 12/20/16 07:00 86 18 70 12/20/16 05:29 85 18 100 12/20/16 04:00 100 12/20/16 04:00 91 12/20/16 04:00 98.6 84 16 118/78 100 Mechanical Ventilator 12/20/16 03:38 91 18 100 12/20/16 03:00 96 12/20/16 02:03 98.8 12/20/16 01:11 84 18 100 12/20/16 00:22 100 12/20/16 00:22 100 12/20/16 00:00 101.5 89 16 110/77 100 Mechanical Ventilator 12/20/16 00:00 82 12/20/16 00:00 60 12/19/16 23:38 83 18 60 12/19/16 23:37 60 12/19/16 22:15 100 12/19/16 21:14 84 18 50 12/19/16 20:00 99.2 83 18 115/64 95 Mechanical Ventilator 12/19/16 20:00 81 12/19/16 20:00 50 12/19/16 19:14 89 18 50 12/19/16 16:55 79 18 50 12/19/16 16:00 98.0 67 18 110/61 99 Mechanical Ventilator 50 12/19/16 16:00 62 12/19/16 16:00 50 12/19/16 16:00 66 19 50 12/19/16 14:15 76 18 50 12/19/16 12:00 97.9 76 18 126/59 98 Mechanical Ventilator 50 12/19/16 12:00 50 12/19/16 12:00 67 12/19/16 10:55 82 19 50 Intake and Output 12/20/16 12/21/16 19:00 07:00 Intake Total 360 ml Balance 360 ml Tube Feeding 120 ml Other 240 ml Height (Feet): 5 Height (Inches): 3.00 Weight (Pounds): 392 General Appearance: morbidly obese EENT: PERRL/EOMI, pharynx normal Cardiovascular: normal rate, regular rhythm, no gallop/murmur, no JVD Abdomen: non tender, soft, no mass, distended Extremities: swelling Edema: 3+ Arm (L), 3+ Arm (R), 3+ Leg (L), 3+ Leg (R), 3+ Pedal (L), 3+ Pedal ( R), 3+ Generalized Edema: moderate edema Neurologic: water tester II-XII grossly normal, oriented x 3, responsive Skin: rash Lymphatic: normal anterior cervical (L), normal anterior cervical (R), normal posterior cervical (L), normal posterior cervical (R), normal submandibular (L) , normal submandibular (R), normal supraclavicular (L), normal supraclavicular ( R), normal axillary (L), normal axillary (R), normal inguinal (L), normal inguinal (R), normal other Manny Nolan MD Dec 20, 2016 10:21
--- NOTE | 2016-12-20 10:21 | Pulmonology Progress Note ---
Assessment/Plan Problems: (1) Chronic respiratory failure (2) Anasarca (3) ATN (acute tubular necrosis) (4) Anemia (5) Peripheral edema (6) Pickwickian syndrome (7) MINA (obstructive sleep apnea) (8) Morbid obesity Respiratory: monitor respiratory rate, adjust FIO2, weaning trial Cardiac: continue to monitor HR/BP Renal: F/U I&O, keep IV fluid Infectious Disease: check cultures, continue antibiotics Gastrointestinal: continue feedings/current rate, hold feedings Endocrine: check TSH, check HgA1C, continue sliding scale insulin Hematologic: transfuse if hgb<8.5 Neurologic: keep patient comfortable Prophylaxis: Protonix, Heparin Notes Reviewed: cardio, renal 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: nurses, consultants, case therapist Subjective ROS Limited/Unobtainable: No Constitutional: Reports: no symptoms HEENT: Repors: no symptoms Respiratory: Reports: no symptoms Allergies: Coded Allergies: AMOXICILLIN (Verified Allergy, Mild, RASH, 09/30/16) PENICILLINS (Unverified Allergy, Unknown, 09/30/16) Objective Last 24 Hour Vital Signs Date Time Temp Pulse Resp B/P (MAP) Pulse Ox O2 Delivery O2 Flow Rate FiO2 12/20/16 09:10 86 18 70 12/20/16 08:00 70 12/20/16 08:00 82 12/20/16 08:00 98.4 89 18 108/58 99 Mechanical Ventilator 70 12/20/16 07:00 86 18 70 12/20/16 05:29 85 18 100 12/20/16 04:00 100 12/20/16 04:00 91 12/20/16 04:00 98.6 84 16 118/78 100 Mechanical Ventilator 12/20/16 03:38 91 18 100 12/20/16 03:00 96 12/20/16 02:03 98.8 12/20/16 01:11 84 18 100 12/20/16 00:22 100 12/20/16 00:22 100 12/20/16 00:00 101.5 89 16 110/77 100 Mechanical Ventilator 12/20/16 00:00 82 12/20/16 00:00 60 12/19/16 23:38 83 18 60 12/19/16 23:37 60 12/19/16 22:15 100 12/19/16 21:14 84 18 50 12/19/16 20:00 99.2 83 18 115/64 95 Mechanical Ventilator 12/19/16 20:00 81 12/19/16 20:00 50 12/19/16 19:14 89 18 50 12/19/16 16:55 79 18 50 12/19/16 16:00 98.0 67 18 110/61 99 Mechanical Ventilator 50 12/19/16 16:00 62 12/19/16 16:00 50 12/19/16 16:00 66 19 50 12/19/16 14:15 76 18 50 12/19/16 12:00 97.9 76 18 126/59 98 Mechanical Ventilator 50 12/19/16 12:00 50 12/19/16 12:00 67 12/19/16 10:55 82 19 50 Intake and Output 12/20/16 12/21/16 19:00 07:00 Intake Total 360 ml Balance 360 ml Tube Feeding 120 ml Other 240 ml General Appearance: WD/WN HEENT: normocephalic, atraumatic Respiratory/Chest: chest wall non-tender, lungs clear Breasts: no masses Cardiovascular: normal peripheral pulses Abdomen: normal bowel sounds, soft, non tender Genitourinary: normal external genitalia Extremities: no cyanosis Skin: no rash Neurologic/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: 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 grossly normal Lymphatic: no neck adenopathy Current Medications Medications (Trade) Dose Ordered Sig/Kalyn Route PRN Reason Start Time Stop Time Status Last Admin Dose Admin Acetaminophen (Tylenol) 650 mg Q6HR PRN GT Mild Pain/Temp > 100.5 12/20/16 01:30 01/19/17 01:29 12/20/16 01:33 Allopurinol (Zyloprim) 100 mg DAILY ORAL 12/15/16 09:00 01/14/17 08:59 12/20/16 08:47 Chlorhexidine Gluconate (Marni-Hex 2%) 1 applic Q24H TOPIC 12/03/16 20:00 12/27/16 19:59 12/19/16 20:04 Docusate Sodium (Colace) 100 mg TWICE A DAY GT 12/04/16 09:00 01/03/17 08:59 12/20/16 08:47 Midodrine (Pro-Amatine) 10 mg EVERY 8 HOURS GT 12/12/16 14:00 01/11/17 13:59 12/20/16 05:50 Polyethylene Glycol (Miralax) 17 gm BEDTIME ORAL 12/12/16 21:30 01/11/17 21:29 12/15/16 21:00 Potassium Chloride (KCl 10% 40mEq Oral solution) 40 meq DAILY NG 12/19/16 09:00 01/18/17 08:59 12/20/16 08:47 Ranitidine HCl (Zantac) 150 mg DAILY GT 12/17/16 09:00 01/16/17 08:59 12/20/16 08:47 ARASH MIRANDA Dec 20, 2016 10:21
[2016-12-20 11:11] LABS: MEAN CORPUSCULAR HGB CONC 30.6 G/DL (32.0-36.0); MEAN CORPUSCULAR VOLUME 105 FL (80-99); MEAN PLATELET VOLUME 5.7 FL (6.5-10.1); PLATELET COUNT 205 K/UL (150-450); RED BLOOD COUNT 2.39 M/UL (4.20-5.40); RED CELL DISTRIBUTION WIDTH 19.5 % (11.6-14.8)
[2016-12-20 11:29] LABS: ANION GAP 4 mmol/L (5-15); CALCIUM 8.7 MG/DL (8.5-10.1); CARBON DIOXIDE 37 MMOL/L (21-32); CHLORIDE 102 MMOL/L (98-107); CREATININE 2.8 MG/DL (0.55-1.30); POTASSIUM 3.8 MMOL/L (3.5-5.1); SODIUM 143 MMOL/L (136-145)
[2016-12-20 12:00] VITALS: BP 114/65
[2016-12-20 12:04] LABS: OTHERS PATHOLOGIST COMMENT
[2016-12-20 12:19] LABS: ANISOCYTOSIS 1+; BAND NEUTROPHILS % (MANUAL) 0 % (0-8); BASOPHILS % (MANUAL) 1 % (0-2); EOSINOPHILS % (MANUAL) 1 % (0-3); HYPOCHROMASIA 1+; LYMPHOCYTES % (MANUAL) 12 % (20-45); MACROCYTES 1+; NEUTROPHILS % (MANUAL) 79 % (45-75); PLATELET ESTIMATE ADEQUATE; PLATELET MORPHOLOGY NORMAL; TOTAL CELLS COUNTED 100
--- NOTE | 2016-12-20 12:21 | Diagnostic Imaging Report ---
Indication: SOB Technique: One view of the chest Comparison: 12/13/2016 Findings: There is increased opacity of the right mid and lower lung. The heart remains enlarged. The left lung and pleural space are probably clear. Note that the left costophrenic sulcus is cut off the exam. Tracheostomy, right jugular temporary dialysis catheter remain Impression: Since 12/13/2016, increasing right mid and lower lung opacity, likely pleural fluid and/or consolidation.
--- NOTE | 2016-12-20 12:28 | GI Progress Note ---
Assessment/Plan Problems: (1) Positive occult stool blood test ICD Codes: R19.5 - Other fecal abnormalities SNOMED: 92238497, 209600534 (2) Morbid obesity ICD Codes: E66.01 - Morbid (severe) obesity due to excess calories SNOMED: 044441927, 13849752274796 (3) Anemia ICD Codes: D64.9 - Anemia, unspecified SNOMED: 150264793 (4) PEG (percutaneous endoscopic gastrostomy) adjustment/replacement/removal ICD Codes: Z43.1 - Encounter for attention to gastrostomy SNOMED: 104966153, 361832500 Status: unchanged Status Narrative 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 Dr. Noriega. Assessment/Plan s/p PEG GTF per dietary at goal fu pulmonary recs bowel regime monitor H&H, prn transfusions ppi fu labs Subjective Subjective limited Objective Last 24 Hour Vital Signs Date Time Temp Pulse Resp B/P (MAP) Pulse Ox O2 Delivery O2 Flow Rate FiO2 12/20/16 11:19 95 21 70 12/20/16 09:10 86 18 70 12/20/16 08:00 70 12/20/16 08:00 82 12/20/16 08:00 98.4 89 18 108/58 99 Mechanical Ventilator 70 12/20/16 07:00 86 18 70 12/20/16 05:29 85 18 100 12/20/16 04:00 100 12/20/16 04:00 91 12/20/16 04:00 98.6 84 16 118/78 100 Mechanical Ventilator 12/20/16 03:38 91 18 100 12/20/16 03:00 96 12/20/16 02:03 98.8 12/20/16 01:11 84 18 100 12/20/16 00:22 100 12/20/16 00:22 100 12/20/16 00:00 101.5 89 16 110/77 100 Mechanical Ventilator 12/20/16 00:00 82 12/20/16 00:00 60 12/19/16 23:38 83 18 60 12/19/16 23:37 60 12/19/16 22:15 100 12/19/16 21:14 84 18 50 12/19/16 20:00 99.2 83 18 115/64 95 Mechanical Ventilator 12/19/16 20:00 81 12/19/16 20:00 50 12/19/16 19:14 89 18 50 12/19/16 16:55 79 18 50 12/19/16 16:00 98.0 67 18 110/61 99 Mechanical Ventilator 50 12/19/16 16:00 62 12/19/16 16:00 50 12/19/16 16:00 66 19 50 12/19/16 14:15 76 18 50 Intake and Output 12/20/16 12/21/16 19:00 07:00 Intake Total 400 ml Balance 400 ml Tube Feeding 160 ml Other 240 ml Laboratory Tests Test 12/20/16 10:55 White Blood Count 15.0 K/UL (4.8-10.8) #H Red Blood Count 2.39 M/UL (4.20-5.40) L Hemoglobin 7.7 G/DL (12.0-16.0) L Hematocrit 25.0 % (37.0-47.0) L Mean Corpuscular Volume 105 FL (80-99) H Mean Corpuscular Hemoglobin 32.0 PG (27.0-31.0) H Mean Corpuscular Hemoglobin Concent 30.6 G/DL (32.0-36.0) L Red Cell Distribution Width 19.5 % (11.6-14.8) H Platelet Count 205 K/UL (150-450) Mean Platelet Volume 5.7 FL (6.5-10.1) L Neutrophils (%) (Auto) % (45.0-75.0) Lymphocytes (%) (Auto) % (20.0-45.0) Monocytes (%) (Auto) % (1.0-10.0) Eosinophils (%) (Auto) % (0.0-3.0) Basophils (%) (Auto) % (0.0-2.0) Differential Total Cells Counted 100 Neutrophils % (Manual) 79 % (45-75) H Lymphocytes % (Manual) 12 % (20-45) L Monocytes % (Manual) 7 % (1-10) Eosinophils % (Manual) 1 % (0-3) Basophils % (Manual) 1 % (0-2) Band Neutrophils 0 % (0-8) Platelet Estimate Adequate Platelet Morphology Normal Hypochromasia 1+ Anisocytosis 1+ Macrocytosis 1+ Sodium Level 143 MMOL/L (136-145) Potassium Level 3.8 MMOL/L (3.5-5.1) Chloride Level 102 MMOL/L (98-107) Carbon Dioxide Level 37 MMOL/L (21-32) H Anion Gap 4 mmol/L (5-15) L Blood Urea Nitrogen 19 mg/dL (7-18) H Creatinine 2.8 MG/DL (0.55-1.30) H Estimat Glomerular Filtration Rate mL/min (>60) Glucose Level 131 MG/DL (74-106) H Calcium Level 8.7 MG/DL (8.5-10.1) Height (Feet): 5 Height (Inches): 3.00 Weight (Pounds): 392 General Appearance: no apparent distress, morbidly obese Cardiovascular: normal rate Respiratory/Chest: other - [facility] vent Abdominal Exam: site - c/d/i Kateryna Sherman N.P. Dec 20, 2016 12:28
--- NOTE | 2016-12-20 12:36 | Infectious Diseases Prog Note ---
Assessment/Plan Assessment/Plan Assesment: Probable VAP Scx : PSA and Providencia, SP Rx -CXR 12/13 : Pulmonary edema Leukocytosis Fever Cellulitis BLE and R arm- in the setting of chronic leg edema/venous stasis, s/ p Rx- Limited Venous duplex BLE (non diagnostic), no DVT R arm;Cellulitis resolved;Now residual venous stasis changes. -Bcx Neg Anasarca/ bilateral leg lymphedema VRE colonzied GT site : Wnd Cx : Morg M, Providencia ( Colonizer ) Anemia COPD Diastolic CHF Renal insufficiency- acute on chronic- started on HD 11/24 chronic resp failure, vent/trach dependent Gtbue pAfib pleural effusion MINA CKD GERD morbid obesity [facility] resident Plan: restart Cefepime d# IV Cefepime d# 7 12/17 IV Vancomycin /-11/12; 11/17-11/26 IV Cefepime /-11/12 IV Ancef 11/12-11/28 Flagyl x1 11/11 panculture monitor C-xray -extremity elevation -edema management -Monitor CBC/BMP, - vent support, trach care, aspiration precautions Subjective Allergies: Coded Allergies: AMOXICILLIN (Verified Allergy, Mild, RASH, 09/30/16) PENICILLINS (Unverified Allergy, Unknown, 09/30/16) Subjective Febrile x 1 Objective Vital Signs Last 24 Hour Vital Signs Date Time Temp Pulse Resp B/P (MAP) Pulse Ox O2 Delivery O2 Flow Rate FiO2 12/20/16 12:00 70 12/20/16 11:19 95 21 70 12/20/16 09:10 86 18 70 12/20/16 08:00 70 12/20/16 08:00 82 12/20/16 08:00 98.4 89 18 108/58 99 Mechanical Ventilator 70 12/20/16 07:00 86 18 70 12/20/16 05:29 85 18 100 12/20/16 04:00 100 12/20/16 04:00 91 12/20/16 04:00 98.6 84 16 118/78 100 Mechanical Ventilator 12/20/16 03:38 91 18 100 12/20/16 03:00 96 12/20/16 02:03 98.8 12/20/16 01:11 84 18 100 12/20/16 00:22 100 12/20/16 00:22 100 12/20/16 00:00 101.5 89 16 110/77 100 Mechanical Ventilator 12/20/16 00:00 82 12/20/16 00:00 60 12/19/16 23:38 83 18 60 12/19/16 23:37 60 12/19/16 22:15 100 12/19/16 21:14 84 18 50 12/19/16 20:00 99.2 83 18 115/64 95 Mechanical Ventilator 12/19/16 20:00 81 12/19/16 20:00 50 12/19/16 19:14 89 18 50 12/19/16 16:55 79 18 50 12/19/16 16:00 98.0 67 18 110/61 99 Mechanical Ventilator 50 12/19/16 16:00 62 12/19/16 16:00 50 12/19/16 16:00 66 19 50 12/19/16 14:15 76 18 50 Height (Feet): 5 Height (Inches): 3.00 Weight (Pounds): 392 HEENT: anicteric Respiratory/Chest: no respiratory distress Cardiovascular: regular rhythm Abdomen: non distended Laboratory Tests Test 12/20/16 10:55 White Blood Count 15.0 K/UL (4.8-10.8) #H Red Blood Count 2.39 M/UL (4.20-5.40) L Hemoglobin 7.7 G/DL (12.0-16.0) L Hematocrit 25.0 % (37.0-47.0) L Mean Corpuscular Volume 105 FL (80-99) H Mean Corpuscular Hemoglobin 32.0 PG (27.0-31.0) H Mean Corpuscular Hemoglobin Concent 30.6 G/DL (32.0-36.0) L Red Cell Distribution Width 19.5 % (11.6-14.8) H Platelet Count 205 K/UL (150-450) Mean Platelet Volume 5.7 FL (6.5-10.1) L Neutrophils (%) (Auto) % (45.0-75.0) Lymphocytes (%) (Auto) % (20.0-45.0) Monocytes (%) (Auto) % (1.0-10.0) Eosinophils (%) (Auto) % (0.0-3.0) Basophils (%) (Auto) % (0.0-2.0) Differential Total Cells Counted 100 Neutrophils % (Manual) 79 % (45-75) H Lymphocytes % (Manual) 12 % (20-45) L Monocytes % (Manual) 7 % (1-10) Eosinophils % (Manual) 1 % (0-3) Basophils % (Manual) 1 % (0-2) Band Neutrophils 0 % (0-8) Platelet Estimate Adequate Platelet Morphology Normal Hypochromasia 1+ Anisocytosis 1+ Macrocytosis 1+ Sodium Level 143 MMOL/L (136-145) Potassium Level 3.8 MMOL/L (3.5-5.1) Chloride Level 102 MMOL/L (98-107) Carbon Dioxide Level 37 MMOL/L (21-32) H Anion Gap 4 mmol/L (5-15) L Blood Urea Nitrogen 19 mg/dL (7-18) H Creatinine 2.8 MG/DL (0.55-1.30) H Estimat Glomerular Filtration Rate mL/min (>60) Glucose Level 131 MG/DL (74-106) H Calcium Level 8.7 MG/DL (8.5-10.1) Current Medications Medications (Trade) Dose Ordered Sig/Kalyn Route PRN Reason Start Time Stop Time Status Last Admin Dose Admin Acetaminophen (Tylenol) 650 mg Q6HR PRN GT Mild Pain/Temp > 100.5 12/20/16 01:30 01/19/17 01:29 12/20/16 01:33 Allopurinol (Zyloprim) 100 mg DAILY ORAL 12/15/16 09:00 01/14/17 08:59 12/20/16 08:47 Chlorhexidine Gluconate (Marni-Hex 2%) 1 applic Q24H TOPIC 12/03/16 20:00 12/27/16 19:59 12/19/16 20:04 Docusate Sodium (Colace) 100 mg TWICE A DAY GT 12/04/16 09:00 01/03/17 08:59 12/20/16 08:47 Midodrine (Pro-Amatine) 10 mg EVERY 8 HOURS GT 12/12/16 14:00 01/11/17 13:59 12/20/16 05:50 Polyethylene Glycol (Miralax) 17 gm BEDTIME ORAL 12/12/16 21:30 01/11/17 21:29 12/15/16 21:00 Potassium Chloride (KCl 10% 40mEq Oral solution) 40 meq DAILY NG 12/19/16 09:00 01/18/17 08:59 12/20/16 08:47 Ranitidine HCl (Zantac) 150 mg DAILY GT 12/17/16 09:00 01/16/17 08:59 12/20/16 08:47 LINDSEY HILL M.D. Dec 20, 2016 12:36
[2016-12-20] MEDS ORDERED: Cefepime 2gm/D5W 110ml IV ONE ×2 (13:30)
[2016-12-20] MEDS ORDERED: Cefepime HCl 2 GM in D5W 110 ML IVPB SCH (14:00)
[2016-12-20 16:00] VITALS: BP 103/47
--- NOTE | 2016-12-20 19:32 | Cardiology Progress Note ---
Assessment/Plan Assessment/Plan 1. Permanent atrial fibrillation. 2. Chronic respiratory failure, on a mechanical ventilator. 3. Cor pulmonale. 4. Pulmonary hypertension. 5. Acute renal failure, now on dialysis. 6. Anemia. 7. Significant edema. 8. Hypoalbuminemia. 9. stool ob + remain in afib tele reviewed planned 2 liter removal stool ob + no anticoagulation for now nutritionla support wbc elevated cxr noted inrease effusion / infiltrate dialysis Subjective ROS Limited/Unobtainable: Yes Subjective on the vent awake Objective Last 24 Hour Vital Signs Date Time Temp Pulse Resp B/P (MAP) Pulse Ox O2 Delivery O2 Flow Rate FiO2 12/20/16 16:53 77 18 60 12/20/16 16:00 60 12/20/16 16:00 98.6 73 26 103/47 96 Mechanical Ventilator 60 12/20/16 16:00 77 12/20/16 15:13 73 20 60 12/20/16 13:06 77 18 60 12/20/16 12:00 70 12/20/16 12:00 77 12/20/16 12:00 99.0 79 19 114/65 98 Mechanical Ventilator 70 12/20/16 11:19 95 21 70 12/20/16 09:10 86 18 70 12/20/16 08:00 70 12/20/16 08:00 82 12/20/16 08:00 98.4 89 18 108/58 99 Mechanical Ventilator 70 12/20/16 07:00 86 18 70 12/20/16 05:29 85 18 100 12/20/16 04:00 100 12/20/16 04:00 91 12/20/16 04:00 98.6 84 16 118/78 100 Mechanical Ventilator 12/20/16 03:38 91 18 100 12/20/16 03:00 96 12/20/16 02:03 98.8 12/20/16 01:11 84 18 100 12/20/16 00:22 100 12/20/16 00:22 100 12/20/16 00:00 101.5 89 16 110/77 100 Mechanical Ventilator 12/20/16 00:00 82 12/20/16 00:00 60 12/19/16 23:38 83 18 60 12/19/16 23:37 60 12/19/16 22:15 100 12/19/16 21:14 84 18 50 12/19/16 20:00 99.2 83 18 115/64 95 Mechanical Ventilator 12/19/16 20:00 81 12/19/16 20:00 50 General Appearance: no apparent distress, alert, on vent, patient on isolation Intake and Output 12/20/16 12/21/16 19:00 07:00 Intake Total 890 ml Balance 890 ml IV Total 110 ml Tube Feeding 480 ml Other 300 ml # Voids 1 Laboratory Tests Test 12/20/16 10:55 White Blood Count 15.0 K/UL (4.8-10.8) #H Red Blood Count 2.39 M/UL (4.20-5.40) L Hemoglobin 7.7 G/DL (12.0-16.0) L Hematocrit 25.0 % (37.0-47.0) L Mean Corpuscular Volume 105 FL (80-99) H Mean Corpuscular Hemoglobin 32.0 PG (27.0-31.0) H Mean Corpuscular Hemoglobin Concent 30.6 G/DL (32.0-36.0) L Red Cell Distribution Width 19.5 % (11.6-14.8) H Platelet Count 205 K/UL (150-450) Mean Platelet Volume 5.7 FL (6.5-10.1) L Neutrophils (%) (Auto) % (45.0-75.0) Lymphocytes (%) (Auto) % (20.0-45.0) Monocytes (%) (Auto) % (1.0-10.0) Eosinophils (%) (Auto) % (0.0-3.0) Basophils (%) (Auto) % (0.0-2.0) Differential Total Cells Counted 100 Neutrophils % (Manual) 79 % (45-75) H Lymphocytes % (Manual) 12 % (20-45) L Monocytes % (Manual) 7 % (1-10) Eosinophils % (Manual) 1 % (0-3) Basophils % (Manual) 1 % (0-2) Band Neutrophils 0 % (0-8) Platelet Estimate Adequate Platelet Morphology Normal Hypochromasia 1+ Anisocytosis 1+ Macrocytosis 1+ Sodium Level 143 MMOL/L (136-145) Potassium Level 3.8 MMOL/L (3.5-5.1) Chloride Level 102 MMOL/L (98-107) Carbon Dioxide Level 37 MMOL/L (21-32) H Anion Gap 4 mmol/L (5-15) L Blood Urea Nitrogen 19 mg/dL (7-18) H Creatinine 2.8 MG/DL (0.55-1.30) H Estimat Glomerular Filtration Rate mL/min (>60) Glucose Level 131 MG/DL (74-106) H Calcium Level 8.7 MG/DL (8.5-10.1) BRIANA TELLES Dec 20, 2016 19:32
[2016-12-20] MEDS: Dyna-Hex 2% Top Sol 2oz TOPIC SCH (19:55)
[2016-12-20 20:00] VITALS: BP 109/63
[2016-12-20] MEDS: Miralax 17gm pkt ORAL SCH (21:00)
--- NOTE | 2016-12-20 21:47 | General Progress Note ---
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 INR improving. Continue to monitor #. Anemia secondary to chronic disease. Continue to closely monitor. Work up reviewed --> s/p multiple transfusions. watch counts, transfuse if hgb is below 7. --> ferritin is elevated # Positive occult blood. r/o gi bleed. gi following #. Anemia of kidney disease. Nephrology service following #. PEG tube placement #. Chronic ventilator dependent #. Permanent atrial fibrillation. #. Cellulitis and chronic lymphedema of the bilateral lower extremities. #. Congestive heart failure. Subjective ROS Limited/Unobtainable: Yes Allergies: Coded Allergies: AMOXICILLIN (Verified Allergy, Mild, RASH, 09/30/16) PENICILLINS (Unverified Allergy, Unknown, 09/30/16) Subjective HH unchanged, NAD Objective Last 24 Hour Vital Signs Date Time Temp Pulse Resp B/P (MAP) Pulse Ox O2 Delivery O2 Flow Rate FiO2 12/20/16 20:54 74 18 60 12/20/16 20:22 75 19 60 12/20/16 20:00 77 12/20/16 16:53 77 18 60 12/20/16 16:00 60 12/20/16 16:00 98.6 73 26 103/47 96 Mechanical Ventilator 60 12/20/16 16:00 77 12/20/16 15:13 73 20 60 12/20/16 13:06 77 18 60 12/20/16 12:00 70 12/20/16 12:00 77 12/20/16 12:00 99.0 79 19 114/65 98 Mechanical Ventilator 70 12/20/16 11:19 95 21 70 12/20/16 09:10 86 18 70 12/20/16 08:00 70 12/20/16 08:00 82 12/20/16 08:00 98.4 89 18 108/58 99 Mechanical Ventilator 70 12/20/16 07:00 86 18 70 12/20/16 05:29 85 18 100 12/20/16 04:00 100 12/20/16 04:00 91 12/20/16 04:00 98.6 84 16 118/78 100 Mechanical Ventilator 12/20/16 03:38 91 18 100 12/20/16 03:00 96 12/20/16 02:03 98.8 12/20/16 01:11 84 18 100 12/20/16 00:22 100 12/20/16 00:22 100 12/20/16 00:00 101.5 89 16 110/77 100 Mechanical Ventilator 12/20/16 00:00 82 12/20/16 00:00 60 12/19/16 23:38 83 18 60 12/19/16 23:37 60 12/19/16 22:15 100 Intake and Output 12/20/16 12/21/16 19:00 07:00 Intake Total 890 ml Balance 890 ml IV Total 110 ml Tube Feeding 480 ml Other 300 ml # Voids 1 Laboratory Tests 12/20/16 10:55: White Blood Count 15.0#H, Red Blood Count 2.39L, Hemoglobin 7.7L, Hematocrit 25.0L, Mean Corpuscular Volume 105H, Mean Corpuscular Hemoglobin 32.0H, Mean Corpuscular Hemoglobin Concent 30.6L, Red Cell Distribution Width 19.5H, Platelet Count 205, Mean Platelet Volume 5.7L, Neutrophils (%) (Auto) , Lymphocytes (%) (Auto) , Monocytes (%) (Auto) , Eosinophils (%) (Auto) , Basophils (%) (Auto) , Differential Total Cells Counted 100, Neutrophils % ( Manual) 79H, Lymphocytes % (Manual) 12L, Monocytes % (Manual) 7, Eosinophils % ( Manual) 1, Basophils % (Manual) 1, Band Neutrophils 0, Platelet Estimate Adequate, Platelet Morphology Normal, Hypochromasia 1+, Anisocytosis 1+, Macrocytosis 1+, Sodium Level 143, Potassium Level 3.8, Chloride Level 102, Carbon Dioxide Level 37H, Anion Gap 4L, Blood Urea Nitrogen 19H, Creatinine 2.8H , Estimat Glomerular Filtration Rate , Glucose Level 131H, Calcium Level 8.7 Height (Feet): 5 Height (Inches): 3.00 Weight (Pounds): 392 General Appearance: no apparent distress EENT: PERRL/EOMI Neck: normal alignment Cardiovascular: normal peripheral pulses Abdomen: non tender, soft Pelvis: normal external exam Edema: trace edema Skin: normal pigmentation Serafin Haines Dec 20, 2016 21:47
[2016-12-21] VITALS (8 sets, daily range): BP systolic 92–131; BP diastolic 53–93
[2016-12-21 05:10] LABS: MEAN CORPUSCULAR HEMOGLOBIN 33.1 PG (27.0-31.0); MEAN CORPUSCULAR HGB CONC 31.7 G/DL (32.0-36.0); MEAN CORPUSCULAR VOLUME 104 FL (80-99); MEAN PLATELET VOLUME 5.9 FL (6.5-10.1); PLATELET COUNT 184 K/UL (150-450); RED BLOOD COUNT 2.33 M/UL (4.20-5.40); RED CELL DISTRIBUTION WIDTH 18.9 % (11.6-14.8); WHITE BLOOD COUNT 12.8 K/UL (4.8-10.8)
[2016-12-21 05:26] LABS: ALBUMIN/GLOBULIN RATIO 0.3 (1.0-2.7); ANION GAP 6 mmol/L (5-15); CALCIUM 8.8 MG/DL (8.5-10.1); CARBON DIOXIDE 34 MMOL/L (21-32); CHLORIDE 102 MMOL/L (98-107); CREATININE 3.3 MG/DL (0.55-1.30); MAGNESIUM 1.8 MG/DL (1.8-2.4); PHOSPHORUS 2.5 MG/DL (2.5-4.9); POTASSIUM 3.8 MMOL/L (3.5-5.1); SODIUM 142 MMOL/L (136-145); TOTAL PROTEIN 7.5 G/DL (6.4-8.2); URIC ACID 2.7 MG/DL (2.6-7.2)
[2016-12-21 05:48] LABS: ASPARTATE AMINO TRANSFERASE 17 U/L (15-37); BILIRUBIN,DIRECT 0.8 MG/DL (0.0-0.3)
[2016-12-21 05:49] LABS: ALANINE AMINOTRANSFERASE 2 U/L (12-78); CRP QUANT 19.6 mg/dL (0.00-0.90)
[2016-12-21] MEDS: Midodrine 10mg tab GT SCH ×2 (05:56→15:24)
[2016-12-21 07:26] LABS: EOSINOPHILS % (MANUAL) 3 % (0-3); LYMPHOCYTES % (MANUAL) 15 % (20-45); NEUTROPHILS % (MANUAL) 71 % (45-75); TOTAL CELLS COUNTED 100
[2016-12-21 07:27] LABS: ANISOCYTOSIS 2+; BAND NEUTROPHILS % (MANUAL) 0 % (0-8); BASOPHILS % (MANUAL) 0 % (0-2); HYPOCHROMASIA 3+; MACROCYTES 1+; PLATELET ESTIMATE ADEQUATE; PLATELET MORPHOLOGY NORMAL; POLYCHROMASIA 1+
[2016-12-21] MEDS: Docusate 100mg/10ml Liq GT SCH ×2 (09:27→18:00)
[2016-12-21] MEDS: KCl 10% 40mEq/30ml liquid NG SCH (09:27)
[2016-12-21] MEDS: Allopurinol 100mg Tab ORAL SCH (09:28)
--- NOTE | 2016-12-21 09:52 | Infectious Diseases Prog Note ---
Assessment/Plan Assessment/Plan Assesment: Probable VAP Scx : PSA and Providencia, SP Rx -CXR 12/13 : Pulmonary edema Leukocytosis improving Fever , SP Cellulitis BLE and R arm- in the setting of chronic leg edema/venous stasis, s/ p Rx- Limited Venous duplex BLE (non diagnostic), no DVT R arm;Cellulitis resolved;Now residual venous stasis changes. -Bcx Neg Anasarca/ bilateral leg lymphedema VRE colonzied GT site : Wnd Cx : Morg M, Providencia ( Colonizer ) Anemia COPD Diastolic CHF Renal insufficiency- acute on chronic- started on HD 11/24 chronic resp failure, vent/trach dependent Gtbue pAfib pleural effusion MINA CKD GERD morbid obesity [place] resident Plan: cont Cefepime d# IV Cefepime d# 7 12/17 IV Vancomycin /-11/12; 11/17-11/26 IV Cefepime 11/11-11/12 IV Ancef 11/12-11/28 Flagyl x1 11/11 panculture monitor C-xray -extremity elevation -edema management -Monitor CBC/BMP, - vent support, trach care, aspiration precautions Subjective Constitutional: Denies: no symptoms, fever, chills, fatigue, anorexia, drenching sweats, other Allergies: Coded Allergies: AMOXICILLIN (Verified Allergy, Mild, RASH, 09/30/16) PENICILLINS (Unverified Allergy, Unknown, 09/30/16) Subjective afebrile Objective Vital Signs Last 24 Hour Vital Signs Date Time Temp Pulse Resp B/P (MAP) Pulse Ox O2 Delivery O2 Flow Rate FiO2 12/21/16 09:23 79 18 60 12/21/16 08:00 99.7 85 18 112/55 98 Mechanical Ventilator 60 12/21/16 06:51 95 18 60 12/21/16 05:19 90 18 60 12/21/16 04:00 60 12/21/16 04:00 87 12/21/16 04:00 99.5 98 18 109/62 97 Mechanical Ventilator 60 12/21/16 03:41 89 18 60 12/21/16 01:58 94 19 60 12/21/16 00:00 80 12/21/16 00:00 99.1 18 131/93 97 Mechanical Ventilator 60 12/20/16 23:59 88 18 60 12/20/16 20:54 74 18 60 12/20/16 20:22 75 19 60 12/20/16 20:00 98.6 30 109/63 97 Mechanical Ventilator 12/20/16 20:00 77 12/20/16 20:00 60 12/20/16 16:53 77 18 60 12/20/16 16:00 60 12/20/16 16:00 98.6 73 26 103/47 96 Mechanical Ventilator 60 12/20/16 16:00 77 12/20/16 15:13 73 20 60 12/20/16 13:06 77 18 60 12/20/16 12:00 70 12/20/16 12:00 77 12/20/16 12:00 99.0 79 19 114/65 98 Mechanical Ventilator 70 12/20/16 11:19 95 21 70 Height (Feet): 5 Height (Inches): 3.00 Weight (Pounds): 398 HEENT: mucous membranes moist Respiratory/Chest: no respiratory distress Cardiovascular: regular rhythm Abdomen: no organomegaly Microbiology Date/Time Source Procedure Growth Status 12/20/16 01:50 Blood Blood Culture - Preliminary NO GROWTH AFTER 24 HOURS Resulted 12/20/16 01:45 Blood Blood Culture - Preliminary NO GROWTH AFTER 24 HOURS Resulted Laboratory Tests Test 12/20/16 10:55 12/21/16 04:20 White Blood Count 15.0 K/UL (4.8-10.8) #H 12.8 K/UL (4.8-10.8) H Red Blood Count 2.39 M/UL (4.20-5.40) L 2.33 M/UL (4.20-5.40) L Hemoglobin 7.7 G/DL (12.0-16.0) L 7.7 G/DL (12.0-16.0) L Hematocrit 25.0 % (37.0-47.0) L 24.3 % (37.0-47.0) L Mean Corpuscular Volume 105 FL (80-99) H 104 FL (80-99) H Mean Corpuscular Hemoglobin 32.0 PG (27.0-31.0) H 33.1 PG (27.0-31.0) H Mean Corpuscular Hemoglobin Concent 30.6 G/DL (32.0-36.0) L 31.7 G/DL (32.0-36.0) L Red Cell Distribution Width 19.5 % (11.6-14.8) H 18.9 % (11.6-14.8) H Platelet Count 205 K/UL (150-450) 184 K/UL (150-450) Mean Platelet Volume 5.7 FL (6.5-10.1) L 5.9 FL (6.5-10.1) L Neutrophils (%) (Auto) % (45.0-75.0) % (45.0-75.0) Lymphocytes (%) (Auto) % (20.0-45.0) % (20.0-45.0) Monocytes (%) (Auto) % (1.0-10.0) % (1.0-10.0) Eosinophils (%) (Auto) % (0.0-3.0) % (0.0-3.0) Basophils (%) (Auto) % (0.0-2.0) % (0.0-2.0) Differential Total Cells Counted 100 100 Neutrophils % (Manual) 79 % (45-75) H 71 % (45-75) Lymphocytes % (Manual) 12 % (20-45) L 15 % (20-45) L Monocytes % (Manual) 7 % (1-10) 11 % (1-10) H Eosinophils % (Manual) 1 % (0-3) 3 % (0-3) Basophils % (Manual) 1 % (0-2) 0 % (0-2) Band Neutrophils 0 % (0-8) 0 % (0-8) Platelet Estimate Adequate Adequate Platelet Morphology Normal Normal Hypochromasia 1+ 3+ Anisocytosis 1+ 2+ Macrocytosis 1+ 1+ Sodium Level 143 MMOL/L (136-145) 142 MMOL/L (136-145) Potassium Level 3.8 MMOL/L (3.5-5.1) 3.8 MMOL/L (3.5-5.1) Chloride Level 102 MMOL/L (98-107) 102 MMOL/L (98-107) Carbon Dioxide Level 37 MMOL/L (21-32) H 34 MMOL/L (21-32) H Anion Gap 4 mmol/L (5-15) L 6 mmol/L (5-15) Blood Urea Nitrogen 19 mg/dL (7-18) H 25 mg/dL (7-18) H Creatinine 2.8 MG/DL (0.55-1.30) H 3.3 MG/DL (0.55-1.30) H Estimat Glomerular Filtration Rate mL/min (>60) mL/min (>60) Glucose Level 131 MG/DL (74-106) H 128 MG/DL (74-106) H Calcium Level 8.7 MG/DL (8.5-10.1) 8.8 MG/DL (8.5-10.1) Polychromasia 1+ Uric Acid 2.7 MG/DL (2.6-7.2) Phosphorus Level 2.5 MG/DL (2.5-4.9) Magnesium Level 1.8 MG/DL (1.8-2.4) Total Bilirubin 1.6 MG/DL (0.2-1.0) H Direct Bilirubin 0.8 MG/DL (0.0-0.3) H Gamma Glutamyl Transpeptidase 23 U/L (5-85) Aspartate Amino Transf (AST/SGOT) 17 U/L (15-37) Alanine Aminotransferase (ALT/SGPT) 2 U/L (12-78) L Alkaline Phosphatase 74 U/L (46-116) C-Reactive Protein, Quantitative 19.6 mg/dL (0.00-0.90) H Pro-B-Type Natriuretic Peptide 99771 pg/mL (0-125) H Total Protein 7.5 G/DL (6.4-8.2) Albumin 1.9 G/DL (3.4-5.0) L Globulin 5.6 g/dL Albumin/Globulin Ratio 0.3 (1.0-2.7) L Current Medications Medications (Trade) Dose Ordered Sig/Kalyn Route PRN Reason Start Time Stop Time Status Last Admin Dose Admin Acetaminophen (Tylenol) 650 mg Q6HR PRN GT Mild Pain/Temp > 100.5 12/20/16 01:30 01/19/17 01:29 12/20/16 01:33 Allopurinol (Zyloprim) 100 mg DAILY ORAL 12/15/16 09:00 01/14/17 08:59 12/21/16 09:28 Cefepime HCl 500 mg/Dextrose 55 ml @ 110 mls/hr Q24H IVPB 12/21/16 16:00 12/28/16 15:59 Chlorhexidine Gluconate (Marni-Hex 2%) 1 applic Q24H TOPIC 12/03/16 20:00 12/27/16 19:59 12/20/16 19:55 Docusate Sodium (Colace) 100 mg TWICE A DAY GT 12/04/16 09:00 01/03/17 08:59 12/21/16 09:27 Midodrine (Pro-Amatine) 10 mg EVERY 8 HOURS GT 12/12/16 14:00 01/11/17 13:59 12/21/16 05:56 Polyethylene Glycol (Miralax) 17 gm BEDTIME ORAL 12/12/16 21:30 01/11/17 21:29 12/15/16 21:00 Potassium Chloride (KCl 10% 40mEq Oral solution) 40 meq DAILY NG 12/19/16 09:00 01/18/17 08:59 12/21/16 09:27 Ranitidine HCl (Zantac) 150 mg DAILY GT 12/17/16 09:00 01/16/17 08:59 12/21/16 09:27 LINDSEY HILL M.D. Dec 21, 2016 09:52
--- NOTE | 2016-12-21 09:59 | Cardiology Progress Note ---
Assessment/Plan Assessment/Plan 1. Permanent atrial fibrillation. 2. Chronic respiratory failure, on a mechanical ventilator. 3. Cor pulmonale. 4. Pulmonary hypertension. 5. Acute renal failure, now on dialysis. 6. Anemia. 7. Significant edema. 8. Hypoalbuminemia. 9. stool ob + remain in afib tele reviewed stool ob + no anticoagulation for now hgb seem lkow but stable nutritional support wbc elevated but better to day low grade fever blood cx neg cxr noted inrease effusion / infiltrate needs dialysis Subjective ROS Limited/Unobtainable: Yes Subjective on the vent awake Objective Last 24 Hour Vital Signs Date Time Temp Pulse Resp B/P (MAP) Pulse Ox O2 Delivery O2 Flow Rate FiO2 12/21/16 09:23 79 18 60 12/21/16 08:00 99.7 85 18 112/55 98 Mechanical Ventilator 60 12/21/16 06:51 95 18 60 12/21/16 05:19 90 18 60 12/21/16 04:00 60 12/21/16 04:00 87 12/21/16 04:00 99.5 98 18 109/62 97 Mechanical Ventilator 60 12/21/16 03:41 89 18 60 12/21/16 01:58 94 19 60 12/21/16 00:00 80 12/21/16 00:00 99.1 18 131/93 97 Mechanical Ventilator 60 12/20/16 23:59 88 18 60 12/20/16 20:54 74 18 60 12/20/16 20:22 75 19 60 12/20/16 20:00 98.6 30 109/63 97 Mechanical Ventilator 12/20/16 20:00 77 12/20/16 20:00 60 12/20/16 16:53 77 18 60 12/20/16 16:00 60 12/20/16 16:00 98.6 73 26 103/47 96 Mechanical Ventilator 60 12/20/16 16:00 77 12/20/16 15:13 73 20 60 12/20/16 13:06 77 18 60 12/20/16 12:00 70 12/20/16 12:00 77 12/20/16 12:00 99.0 79 19 114/65 98 Mechanical Ventilator 70 12/20/16 11:19 95 21 70 General Appearance: no apparent distress, alert, on vent, patient on isolation Intake and Output 12/21/16 12/22/16 19:00 07:00 Intake Total 40 ml Balance 40 ml Tube Feeding 40 ml Laboratory Tests Test 12/20/16 10:55 12/21/16 04:20 White Blood Count 15.0 K/UL (4.8-10.8) #H 12.8 K/UL (4.8-10.8) H Red Blood Count 2.39 M/UL (4.20-5.40) L 2.33 M/UL (4.20-5.40) L Hemoglobin 7.7 G/DL (12.0-16.0) L 7.7 G/DL (12.0-16.0) L Hematocrit 25.0 % (37.0-47.0) L 24.3 % (37.0-47.0) L Mean Corpuscular Volume 105 FL (80-99) H 104 FL (80-99) H Mean Corpuscular Hemoglobin 32.0 PG (27.0-31.0) H 33.1 PG (27.0-31.0) H Mean Corpuscular Hemoglobin Concent 30.6 G/DL (32.0-36.0) L 31.7 G/DL (32.0-36.0) L Red Cell Distribution Width 19.5 % (11.6-14.8) H 18.9 % (11.6-14.8) H Platelet Count 205 K/UL (150-450) 184 K/UL (150-450) Mean Platelet Volume 5.7 FL (6.5-10.1) L 5.9 FL (6.5-10.1) L Neutrophils (%) (Auto) % (45.0-75.0) % (45.0-75.0) Lymphocytes (%) (Auto) % (20.0-45.0) % (20.0-45.0) Monocytes (%) (Auto) % (1.0-10.0) % (1.0-10.0) Eosinophils (%) (Auto) % (0.0-3.0) % (0.0-3.0) Basophils (%) (Auto) % (0.0-2.0) % (0.0-2.0) Differential Total Cells Counted 100 100 Neutrophils % (Manual) 79 % (45-75) H 71 % (45-75) Lymphocytes % (Manual) 12 % (20-45) L 15 % (20-45) L Monocytes % (Manual) 7 % (1-10) 11 % (1-10) H Eosinophils % (Manual) 1 % (0-3) 3 % (0-3) Basophils % (Manual) 1 % (0-2) 0 % (0-2) Band Neutrophils 0 % (0-8) 0 % (0-8) Platelet Estimate Adequate Adequate Platelet Morphology Normal Normal Hypochromasia 1+ 3+ Anisocytosis 1+ 2+ Macrocytosis 1+ 1+ Sodium Level 143 MMOL/L (136-145) 142 MMOL/L (136-145) Potassium Level 3.8 MMOL/L (3.5-5.1) 3.8 MMOL/L (3.5-5.1) Chloride Level 102 MMOL/L (98-107) 102 MMOL/L (98-107) Carbon Dioxide Level 37 MMOL/L (21-32) H 34 MMOL/L (21-32) H Anion Gap 4 mmol/L (5-15) L 6 mmol/L (5-15) Blood Urea Nitrogen 19 mg/dL (7-18) H 25 mg/dL (7-18) H Creatinine 2.8 MG/DL (0.55-1.30) H 3.3 MG/DL (0.55-1.30) H Estimat Glomerular Filtration Rate mL/min (>60) mL/min (>60) Glucose Level 131 MG/DL (74-106) H 128 MG/DL (74-106) H Calcium Level 8.7 MG/DL (8.5-10.1) 8.8 MG/DL (8.5-10.1) Polychromasia 1+ Uric Acid 2.7 MG/DL (2.6-7.2) Phosphorus Level 2.5 MG/DL (2.5-4.9) Magnesium Level 1.8 MG/DL (1.8-2.4) Total Bilirubin 1.6 MG/DL (0.2-1.0) H Direct Bilirubin 0.8 MG/DL (0.0-0.3) H Gamma Glutamyl Transpeptidase 23 U/L (5-85) Aspartate Amino Transf (AST/SGOT) 17 U/L (15-37) Alanine Aminotransferase (ALT/SGPT) 2 U/L (12-78) L Alkaline Phosphatase 74 U/L (46-116) C-Reactive Protein, Quantitative 19.6 mg/dL (0.00-0.90) H Pro-B-Type Natriuretic Peptide 56671 pg/mL (0-125) H Total Protein 7.5 G/DL (6.4-8.2) Albumin 1.9 G/DL (3.4-5.0) L Globulin 5.6 g/dL Albumin/Globulin Ratio 0.3 (1.0-2.7) L Microbiology Date/Time Source Procedure Growth Status 12/20/16 01:50 Blood Blood Culture - Preliminary NO GROWTH AFTER 24 HOURS Resulted 12/20/16 01:45 Blood Blood Culture - Preliminary NO GROWTH AFTER 24 HOURS Resulted BRIANA TELLES Dec 21, 2016 09:59
--- NOTE | 2016-12-21 10:32 | Pulmonology Progress Note ---
Assessment/Plan Problems: (1) Chronic respiratory failure (2) Anasarca (3) ATN (acute tubular necrosis) (4) Anemia (5) Peripheral edema (6) Pickwickian syndrome (7) MINA (obstructive sleep apnea) (8) Morbid obesity Respiratory: monitor respiratory rate, adjust FIO2 Cardiac: continue to monitor HR/BP Renal: F/U I&O, other - no Hd today Infectious Disease: check cultures Gastrointestinal: continue feedings/current rate Endocrine: monitor blood sugar, check TSH, check HgA1C Hematologic: monitor H/H Neurologic: PRN Ativan, PRN Morphine Prophylaxis: Heparin Notes Reviewed: cardio 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: nurses, consultants, nurse case management Subjective ROS Limited/Unobtainable: No Allergies: Coded Allergies: AMOXICILLIN (Verified Allergy, Mild, RASH, 09/30/16) PENICILLINS (Unverified Allergy, Unknown, 09/30/16) Objective Last 24 Hour Vital Signs Date Time Temp Pulse Resp B/P (MAP) Pulse Ox O2 Delivery O2 Flow Rate FiO2 12/21/16 09:23 79 18 60 12/21/16 08:00 99.7 85 18 112/55 98 Mechanical Ventilator 60 12/21/16 06:51 95 18 60 12/21/16 05:19 90 18 60 12/21/16 04:00 60 12/21/16 04:00 87 12/21/16 04:00 99.5 98 18 109/62 97 Mechanical Ventilator 60 12/21/16 03:41 89 18 60 12/21/16 01:58 94 19 60 12/21/16 00:00 80 12/21/16 00:00 99.1 18 131/93 97 Mechanical Ventilator 60 12/20/16 23:59 88 18 60 12/20/16 20:54 74 18 60 12/20/16 20:22 75 19 60 12/20/16 20:00 98.6 30 109/63 97 Mechanical Ventilator 12/20/16 20:00 77 12/20/16 20:00 60 12/20/16 16:53 77 18 60 12/20/16 16:00 60 12/20/16 16:00 98.6 73 26 103/47 96 Mechanical Ventilator 60 12/20/16 16:00 77 12/20/16 15:13 73 20 60 12/20/16 13:06 77 18 60 12/20/16 12:00 70 11/13/17 12:00 77 12/20/16 12:00 99.0 79 19 114/65 98 Mechanical Ventilator 70 12/20/16 11:19 95 21 70 Intake and Output 12/21/16 12/22/16 19:00 07:00 Intake Total 40 ml Balance 40 ml Tube Feeding 40 ml General Appearance: WD/WN HEENT: normocephalic, atraumatic, status post trach Respiratory/Chest: chest wall non-tender, lungs clear Cardiovascular: normal peripheral pulses, normal rate Abdomen: normal bowel sounds, no organomegaly Genitourinary: normal external genitalia Extremities: no clubbing Skin: no rash Microbiology Date/Time Source Procedure Growth Status 12/20/16 01:50 Blood Blood Culture - Preliminary NO GROWTH AFTER 24 HOURS Resulted 12/20/16 01:45 Blood Blood Culture - Preliminary NO GROWTH AFTER 24 HOURS Resulted Laboratory Tests 12/20/16 10:55: White Blood Count 15.0#H, Red Blood Count 2.39L, Hemoglobin 7.7L, Hematocrit 25.0L, Mean Corpuscular Volume 105H, Mean Corpuscular Hemoglobin 32.0H, Mean Corpuscular Hemoglobin Concent 30.6L, Red Cell Distribution Width 19.5H, Platelet Count 205, Mean Platelet Volume 5.7L, Neutrophils (%) (Auto) , Lymphocytes (%) (Auto) , Monocytes (%) (Auto) , Eosinophils (%) (Auto) , Basophils (%) (Auto) , Differential Total Cells Counted 100, Neutrophils % ( Manual) 79H, Lymphocytes % (Manual) 12L, Monocytes % (Manual) 7, Eosinophils % ( Manual) 1, Basophils % (Manual) 1, Band Neutrophils 0, Platelet Estimate Adequate, Platelet Morphology Normal, Hypochromasia 1+, Anisocytosis 1+, Macrocytosis 1+, Sodium Level 143, Potassium Level 3.8, Chloride Level 102, Carbon Dioxide Level 37H, Anion Gap 4L, Blood Urea Nitrogen 19H, Creatinine 2.8H , Estimat Glomerular Filtration Rate , Glucose Level 131H, Calcium Level 8.7 12/21/16 04:20: White Blood Count 12.8H, Red Blood Count 2.33L, Hemoglobin 7.7L, Hematocrit 24.3L, Mean Corpuscular Volume 104H, Mean Corpuscular Hemoglobin 33.1H, Mean Corpuscular Hemoglobin Concent 31.7L, Red Cell Distribution Width 18.9H, Platelet Count 184, Mean Platelet Volume 5.9L, Neutrophils (%) (Auto) , Lymphocytes (%) (Auto) , Monocytes (%) (Auto) , Eosinophils (%) (Auto) , Basophils (%) (Auto) , Differential Total Cells Counted 100, Neutrophils % ( Manual) 71, Lymphocytes % (Manual) 15L, Monocytes % (Manual) 11H, Eosinophils % (Manual) 3, Basophils % (Manual) 0, Band Neutrophils 0, Platelet Estimate Adequate, Platelet Morphology Normal, Hypochromasia 3+, Anisocytosis 2+, Macrocytosis 1+, Sodium Level 142, Potassium Level 3.8, Chloride Level 102, Carbon Dioxide Level 34H, Anion Gap 6, Blood Urea Nitrogen 25H, Creatinine 3.3H , Estimat Glomerular Filtration Rate , Glucose Level 128H, Calcium Level 8.8, Polychromasia 1+, Uric Acid 2.7, Phosphorus Level 2.5, Magnesium Level 1.8, Total Bilirubin 1.6H, Direct Bilirubin 0.8H, Gamma Glutamyl Transpeptidase 23, Aspartate Amino Transf (AST/SGOT) 17, Alanine Aminotransferase (ALT/SGPT) 2L, Alkaline Phosphatase 74, C-Reactive Protein, Quantitative 19.6H, Pro-B-Type Natriuretic Peptide 87680N, Total Protein 7.5, Albumin 1.9L, Globulin 5.6, Albumin/Globulin Ratio 0.3L Current Medications Medications (Trade) Dose Ordered Sig/Kalyn Route PRN Reason Start Time Stop Time Status Last Admin Dose Admin Acetaminophen (Tylenol) 650 mg Q6HR PRN GT Mild Pain/Temp > 100.5 12/20/16 01:30 01/19/17 01:29 12/20/16 01:33 Allopurinol (Zyloprim) 100 mg DAILY ORAL 12/15/16 09:00 01/14/17 08:59 12/21/16 09:28 Cefepime HCl 500 mg/Dextrose 55 ml @ 110 mls/hr Q24H IVPB 12/21/16 16:00 12/28/16 15:59 Chlorhexidine Gluconate (Marni-Hex 2%) 1 applic Q24H TOPIC 12/03/16 20:00 12/27/16 19:59 12/20/16 19:55 Docusate Sodium (Colace) 100 mg TWICE A DAY GT 12/04/16 09:00 01/03/17 08:59 12/21/16 09:27 Midodrine (Pro-Amatine) 10 mg EVERY 8 HOURS GT 12/12/16 14:00 01/11/17 13:59 12/21/16 05:56 Polyethylene Glycol (Miralax) 17 gm BEDTIME ORAL 12/12/16 21:30 01/11/17 21:29 12/15/16 21:00 Potassium Chloride (KCl 10% 40mEq Oral solution) 40 meq DAILY NG 12/19/16 09:00 01/18/17 08:59 12/21/16 09:27 Ranitidine HCl (Zantac) 150 mg DAILY GT 12/17/16 09:00 01/16/17 08:59 12/21/16 09:27 ARASH MIRANDA Dec 21, 2016 10:32
--- NOTE | 2016-12-21 13:39 | Nephrology Progress Note ---
Assessment/Plan Problem List: (1) Renal failure Assessment: CKD + ACUTE (2) Acute and chronic respiratory failure (3) CHF (congestive heart failure) (4) Morbid obesity (5) Atrial fibrillation Assessment Stable from renal stand H&H is low CKD- and acute renal failure - Acute respiratory failure s/p Trach Obese COPD , CHF, Diastolic MINA UTI Anemia GI Bleed, GI bleeding At Fib Pulm HTN h/o Low B12 Plan Plan: transfusion?? per PMD Now has PEG- HD last 12/18 next 12/22 K supplement as needed on EPOGEN 24 H urine collection in process: CrCl 6 Monitor renal parameters- optimize cardiac and pulm status pulmonary support- transfuse as needed ? DC planning post PEG, placement is complicated Subjective ROS Limited/Unobtainable: No Constitutional: Reports: malaise, weakness Objective Objective Last 24 Hour Vital Signs Date Time Temp Pulse Resp B/P (MAP) Pulse Ox O2 Delivery O2 Flow Rate FiO2 12/21/16 13:06 72 18 60 12/21/16 11:50 99.7 76 18 106/66 98 Mechanical Ventilator 60 12/21/16 10:57 78 18 60 12/21/16 09:23 79 18 60 12/21/16 08:00 99.7 85 18 112/55 98 Mechanical Ventilator 60 12/21/16 08:00 87 12/21/16 08:00 60 12/21/16 06:51 95 18 60 12/21/16 05:19 90 18 60 12/21/16 04:00 60 12/21/16 04:00 87 12/21/16 04:00 99.5 98 18 109/62 97 Mechanical Ventilator 60 12/21/16 03:41 89 18 60 12/21/16 01:58 94 19 60 12/21/16 00:00 80 12/21/16 00:00 99.1 18 131/93 97 Mechanical Ventilator 60 12/20/16 23:59 88 18 60 12/20/16 20:54 74 18 60 12/20/16 20:22 75 19 60 12/20/16 20:00 98.6 30 109/63 97 Mechanical Ventilator 12/20/16 20:00 77 12/20/16 20:00 60 12/20/16 16:53 77 18 60 12/20/16 16:00 60 12/20/16 16:00 98.6 73 26 103/47 96 Mechanical Ventilator 60 12/20/16 16:00 77 12/20/16 15:13 73 20 60 Intake and Output 12/21/16 12/22/16 19:00 07:00 Intake Total 40 ml Balance 40 ml Tube Feeding 40 ml # Bowel Movements 1 Laboratory Tests 12/21/16 04:20: White Blood Count 12.8H, Red Blood Count 2.33L, Hemoglobin 7.7L, Hematocrit 24.3L, Mean Corpuscular Volume 104H, Mean Corpuscular Hemoglobin 33.1H, Mean Corpuscular Hemoglobin Concent 31.7L, Red Cell Distribution Width 18.9H, Platelet Count 184, Mean Platelet Volume 5.9L, Neutrophils (%) (Auto) , Lymphocytes (%) (Auto) , Monocytes (%) (Auto) , Eosinophils (%) (Auto) , Basophils (%) (Auto) , Differential Total Cells Counted 100, Neutrophils % ( Manual) 71, Lymphocytes % (Manual) 15L, Monocytes % (Manual) 11H, Eosinophils % (Manual) 3, Basophils % (Manual) 0, Band Neutrophils 0, Platelet Estimate Adequate, Platelet Morphology Normal, Polychromasia 1+, Hypochromasia 3+, Anisocytosis 2+, Macrocytosis 1+, Sodium Level 142, Potassium Level 3.8, Chloride Level 102, Carbon Dioxide Level 34H, Anion Gap 6, Blood Urea Nitrogen 25H, Creatinine 3.3H, Estimat Glomerular Filtration Rate , Glucose Level 128H, Uric Acid 2.7, Calcium Level 8.8, Phosphorus Level 2.5, Magnesium Level 1.8, Total Bilirubin 1.6H, Direct Bilirubin 0.8H, Gamma Glutamyl Transpeptidase 23, Aspartate Amino Transf (AST/SGOT) 17, Alanine Aminotransferase (ALT/SGPT) 2L, Alkaline Phosphatase 74, C-Reactive Protein, Quantitative 19.6H, Pro-B-Type Natriuretic Peptide 24203D, Total Protein 7.5, Albumin 1.9L, Globulin 5.6, Albumin/Globulin Ratio 0.3L Height (Feet): 5 Height (Inches): 3.00 Weight (Pounds): 398 General Appearance: no apparent distress Objective edema extrs COURTNEY LOPEZ Dec 21, 2016 13:39
[2016-12-21] MEDS ORDERED: Cefepime 500mg in D5W 55ml IVPB SCH (16:00)
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
--- NOTE | 2016-12-21 17:10 | GI Progress Note ---
Assessment/Plan Problems: (1) Positive occult stool blood test ICD Codes: R19.5 - Other fecal abnormalities SNOMED: 70451004, 928052829 (2) Morbid obesity ICD Codes: E66.01 - Morbid (severe) obesity due to excess calories SNOMED: 119236632, 78539617938331 (3) Anemia ICD Codes: D64.9 - Anemia, unspecified SNOMED: 641675165 (4) PEG (percutaneous endoscopic gastrostomy) adjustment/replacement/removal ICD Codes: Z43.1 - Encounter for attention to gastrostomy SNOMED: 199415023, 959039127 Status: stable Status Narrative 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 Dr. Noriega. Assessment/Plan s/p PEG GTF per dietary at goal fu pulmonary recs bowel regime monitor H&H, prn transfusions ppi fu labs Subjective Subjective limited Objective Last 24 Hour Vital Signs Date Time Temp Pulse Resp B/P (MAP) Pulse Ox O2 Delivery O2 Flow Rate FiO2 12/21/16 16:00 60 12/21/16 16:00 97.9 65 18 92/53 97 Mechanical Ventilator 60 12/21/16 15:35 61 18 60 12/21/16 14:40 63 20 92/56 Mechanical Ventilator 60 12/21/16 14:40 Mechanical Ventilator 60 12/21/16 13:06 72 18 60 12/21/16 12:00 72 12/21/16 12:00 60 12/21/16 11:50 99.7 76 18 106/66 98 Mechanical Ventilator 60 12/21/16 10:57 78 18 60 12/21/16 09:23 79 18 60 12/21/16 08:00 99.7 85 18 112/55 98 Mechanical Ventilator 60 12/21/16 08:00 87 12/21/16 08:00 60 12/21/16 06:51 95 18 60 12/21/16 05:19 90 18 60 12/21/16 04:00 60 12/21/16 04:00 87 12/21/16 04:00 99.5 98 18 109/62 97 Mechanical Ventilator 60 12/21/16 03:41 89 18 60 12/21/16 01:58 94 19 60 12/21/16 00:00 80 12/21/16 00:00 99.1 18 131/93 97 Mechanical Ventilator 60 12/20/16 23:59 88 18 60 12/20/16 20:54 74 18 60 12/20/16 20:22 75 19 60 12/20/16 20:00 98.6 30 109/63 97 Mechanical Ventilator 12/20/16 20:00 77 12/20/16 20:00 60 Intake and Output 12/21/16 12/22/16 19:00 07:00 Intake Total 40 ml Balance 40 ml Tube Feeding 40 ml # Bowel Movements 3 Laboratory Tests Test 12/21/16 04:20 White Blood Count 12.8 K/UL (4.8-10.8) H Red Blood Count 2.33 M/UL (4.20-5.40) L Hemoglobin 7.7 G/DL (12.0-16.0) L Hematocrit 24.3 % (37.0-47.0) L Mean Corpuscular Volume 104 FL (80-99) H Mean Corpuscular Hemoglobin 33.1 PG (27.0-31.0) H Mean Corpuscular Hemoglobin Concent 31.7 G/DL (32.0-36.0) L Red Cell Distribution Width 18.9 % (11.6-14.8) H Platelet Count 184 K/UL (150-450) Mean Platelet Volume 5.9 FL (6.5-10.1) L Neutrophils (%) (Auto) % (45.0-75.0) Lymphocytes (%) (Auto) % (20.0-45.0) Monocytes (%) (Auto) % (1.0-10.0) Eosinophils (%) (Auto) % (0.0-3.0) Basophils (%) (Auto) % (0.0-2.0) Differential Total Cells Counted 100 Neutrophils % (Manual) 71 % (45-75) Lymphocytes % (Manual) 15 % (20-45) L Monocytes % (Manual) 11 % (1-10) H Eosinophils % (Manual) 3 % (0-3) Basophils % (Manual) 0 % (0-2) Band Neutrophils 0 % (0-8) Platelet Estimate Adequate Platelet Morphology Normal Polychromasia 1+ Hypochromasia 3+ Anisocytosis 2+ Macrocytosis 1+ Sodium Level 142 MMOL/L (136-145) Potassium Level 3.8 MMOL/L (3.5-5.1) Chloride Level 102 MMOL/L (98-107) Carbon Dioxide Level 34 MMOL/L (21-32) H Anion Gap 6 mmol/L (5-15) Blood Urea Nitrogen 25 mg/dL (7-18) H Creatinine 3.3 MG/DL (0.55-1.30) H Estimat Glomerular Filtration Rate mL/min (>60) Glucose Level 128 MG/DL (74-106) H Uric Acid 2.7 MG/DL (2.6-7.2) Calcium Level 8.8 MG/DL (8.5-10.1) Phosphorus Level 2.5 MG/DL (2.5-4.9) Magnesium Level 1.8 MG/DL (1.8-2.4) Total Bilirubin 1.6 MG/DL (0.2-1.0) H Direct Bilirubin 0.8 MG/DL (0.0-0.3) H Gamma Glutamyl Transpeptidase 23 U/L (5-85) Aspartate Amino Transf (AST/SGOT) 17 U/L (15-37) Alanine Aminotransferase (ALT/SGPT) 2 U/L (12-78) L Alkaline Phosphatase 74 U/L (46-116) C-Reactive Protein, Quantitative 19.6 mg/dL (0.00-0.90) H Pro-B-Type Natriuretic Peptide 62935 pg/mL (0-125) H Total Protein 7.5 G/DL (6.4-8.2) Albumin 1.9 G/DL (3.4-5.0) L Globulin 5.6 g/dL Albumin/Globulin Ratio 0.3 (1.0-2.7) L Microbiology Date/Time Source Procedure Growth Status 12/20/16 17:30 Sputum Gram Stain - Final Resulted 12/20/16 17:30 Sputum Sputum Culture Pending Resulted Height (Feet): 5 Height (Inches): 3.00 Weight (Pounds): 398 General Appearance: alert, morbidly obese Cardiovascular: normal rate Respiratory/Chest: other Abdominal Exam: site - c/d/i Kateryna Sherman N.PKarine Dec 21, 2016 17:10
--- NOTE | 2016-12-21 21:50 | General Progress Note ---
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 INR improving. Continue to monitor #. Anemia secondary to chronic disease. Continue to closely monitor. Work up reviewed --> s/p multiple transfusions. watch counts, transfuse if hgb is below 7. --> ferritin is elevated # Positive occult blood. r/o gi bleed. gi following #. Anemia of kidney disease. Nephrology service following #. PEG tube placement #. Chronic ventilator dependent #. Permanent atrial fibrillation. #. Cellulitis and chronic lymphedema of the bilateral lower extremities. #. Congestive heart failure. Subjective ROS Limited/Unobtainable: Yes Allergies: Coded Allergies: AMOXICILLIN (Verified Allergy, Mild, RASH, 09/30/16) PENICILLINS (Unverified Allergy, Unknown, 09/30/16) Subjective no events overnight Objective Last 24 Hour Vital Signs Date Time Temp Pulse Resp B/P (MAP) Pulse Ox O2 Delivery O2 Flow Rate FiO2 12/21/16 20:00 60 12/21/16 20:00 97.3 71 18 100/56 Mechanical Ventilator 60 12/21/16 19:59 69 12/21/16 19:30 77 18 60 12/21/16 18:42 Mechanical Ventilator 60 12/21/16 18:41 97.1 66 20 96/56 Mechanical Ventilator 60 12/21/16 17:07 73 18 60 12/21/16 16:00 60 12/21/16 16:00 97.9 65 18 92/53 97 Mechanical Ventilator 60 12/21/16 16:00 63 12/21/16 15:35 61 18 60 12/21/16 14:40 63 20 92/56 Mechanical Ventilator 60 12/21/16 14:40 Mechanical Ventilator 60 12/21/16 13:06 72 18 60 12/21/16 12:00 72 12/21/16 12:00 60 12/21/16 11:50 99.7 76 18 106/66 98 Mechanical Ventilator 60 12/21/16 10:57 78 18 60 12/21/16 09:23 79 18 60 12/21/16 08:00 99.7 85 18 112/55 98 Mechanical Ventilator 60 12/21/16 08:00 87 12/21/16 08:00 60 12/21/16 06:51 95 18 60 12/21/16 05:19 90 18 60 12/21/16 04:00 60 12/21/16 04:00 87 12/21/16 04:00 99.5 98 18 109/62 97 Mechanical Ventilator 60 12/21/16 03:41 89 18 60 12/21/16 01:58 94 19 60 12/21/16 00:00 80 12/21/16 00:00 99.1 18 131/93 97 Mechanical Ventilator 60 12/20/16 23:59 88 18 60 Intake and Output 12/21/16 12/22/16 19:00 07:00 Intake Total 835 ml Output Total 807 ml Balance 28 ml Free Water 150 ml IV Total 55 ml Tube Feeding 480 ml Blood Product 150 ml Hemodialysis UF 807 ml # Voids 1 # Bowel Movements 5 1 Laboratory Tests 12/21/16 04:20: White Blood Count 12.8H, Red Blood Count 2.33L, Hemoglobin 7.7L, Hematocrit 24.3L, Mean Corpuscular Volume 104H, Mean Corpuscular Hemoglobin 33.1H, Mean Corpuscular Hemoglobin Concent 31.7L, Red Cell Distribution Width 18.9H, Platelet Count 184, Mean Platelet Volume 5.9L, Neutrophils (%) (Auto) , Lymphocytes (%) (Auto) , Monocytes (%) (Auto) , Eosinophils (%) (Auto) , Basophils (%) (Auto) , Differential Total Cells Counted 100, Neutrophils % ( Manual) 71, Lymphocytes % (Manual) 15L, Monocytes % (Manual) 11H, Eosinophils % (Manual) 3, Basophils % (Manual) 0, Band Neutrophils 0, Platelet Estimate Adequate, Platelet Morphology Normal, Polychromasia 1+, Hypochromasia 3+, Anisocytosis 2+, Macrocytosis 1+, Sodium Level 142, Potassium Level 3.8, Chloride Level 102, Carbon Dioxide Level 34H, Anion Gap 6, Blood Urea Nitrogen 25H, Creatinine 3.3H, Estimat Glomerular Filtration Rate , Glucose Level 128H, Uric Acid 2.7, Calcium Level 8.8, Phosphorus Level 2.5, Magnesium Level 1.8, Total Bilirubin 1.6H, Direct Bilirubin 0.8H, Gamma Glutamyl Transpeptidase 23, Aspartate Amino Transf (AST/SGOT) 17, Alanine Aminotransferase (ALT/SGPT) 2L, Alkaline Phosphatase 74, C-Reactive Protein, Quantitative 19.6H, Pro-B-Type Natriuretic Peptide 00306Z, Total Protein 7.5, Albumin 1.9L, Globulin 5.6, Albumin/Globulin Ratio 0.3L Height (Feet): 5 Height (Inches): 3.00 Weight (Pounds): 398 General Appearance: no apparent distress EENT: normal ENT inspection Neck: normal alignment Cardiovascular: normal peripheral pulses Respiratory/Chest: no accessory muscle use Abdomen: no organomegaly, no mass 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
[2016-12-21] MEDS ORDERED: NS 275ml ONE (21:55)
[2016-12-21] MEDS ORDERED: 1/2 NS 1000ml IV ONE (21:55)
[2016-12-21] MEDS ORDERED: Tubing IV Blood Pump IV ONE (21:55)
[2016-12-21] MEDS ORDERED: Tubing IV Secondary IV ONE (21:55)
[2016-12-22] MEDS ORDERED: Allopurinol 100mg Tab ORAL SCH (09:00)
[2016-12-22 16:30] VITALS: BP 118/75
--- NOTE | 2016-12-24 14:16 | Discharge Summary ---
Discharge Summary Hospital Course Date of Admission Nov 11, 2016 at 22:28 Date of Discharge Dec 21, 2016 at 21:56 Admitting Diagnosis cellulitis HPI Kamille Christopher is a 76 year old female who was admitted on Nov 11, 2016 at 22:28 for Cellulitis Hospital Course [id number] Discharge Discharge Disposition Patient was discharged to [facility] Discharge Diagnoses: Angeline Swenson NP Dec 24, 2016 14:16
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
== END 2016-12-21 21:56 | DRG 981 ==
LOC: EDBD 20:52 → EMR 21:11 → ICU 22:28 → EDBEDREQ 11-12 01:02 → 2W 11-12 08:15 → ICU 11-13 22:30 → 2W 12-03 14:13
PROC: 5A1955Z Respiratory Ventilation, Greater than 96 Consecutive Hours (ICD-10-PCS; principal; 2016-11-11)
PROC: 0BW17FZ Revision of Tracheostomy Device in Trachea, Via Natural or Artificial Opening (ICD-10-PCS; 2016-11-23)
PROC: 5A1D70Z Performance of Urinary Filtration, Intermittent, Less than 6 Hours Per Day (ICD-10-PCS; 2016-11-24)
PROC: 02HV33Z Insertion of Infusion Device into Superior Vena Cava, Percutaneous Approach (ICD-10-PCS; 2016-11-24)
PROC: 0DH63UZ Insertion of Feeding Device into Stomach, Percutaneous Approach (ICD-10-PCS; 2016-12-03)
DX: L03.115 Cellulitis of right lower limb (principal); N17.0 Acute kidney failure with tubular necrosis; J96.22 Acute and chronic respiratory failure with hypercapnia; Z99.11 Dependence on respirator [ventilator] status; E87.3 Alkalosis; I13.0 Hypertensive heart and chronic kidney disease with heart failure and stage 1 through stage 4 chronic kidney disease, or unspecified chronic kidney disease; I27.20 Pulmonary hypertension, unspecified; J95.851 Ventilator associated pneumonia; Z93.0 Tracheostomy status; I50.30 Unspecified diastolic (congestive) heart failure; E66.2 Morbid (severe) obesity with alveolar hypoventilation; D68.9 Coagulation defect, unspecified; J44.0 Chronic obstructive pulmonary disease with (acute) lower respiratory infection; L03.113 Cellulitis of right upper limb; Z68.45 Body mass index [BMI] 70 or greater, adult; N39.0 Urinary tract infection, site not specified; D64.9 Anemia, unspecified; G47.33 Obstructive sleep apnea (adult) (pediatric); L03.116 Cellulitis of left lower limb; E11.22 Type 2 diabetes mellitus with diabetic chronic kidney disease; N18.3 Chronic kidney disease, stage 3 (moderate); E11.319 Type 2 diabetes mellitus with unspecified diabetic retinopathy without macular edema; Z85.3 Personal history of malignant neoplasm of breast; I48.2 Chronic atrial fibrillation; Z79.01 Long term (current) use of anticoagulants; E88.09 Other disorders of plasma-protein metabolism, not elsewhere classified; R19.5 Other fecal abnormalities; I89.0 Lymphedema, not elsewhere classified; F41.9 Anxiety disorder, unspecified; K59.00 Constipation, unspecified; I27.81 Cor pulmonale (chronic)
CPT/HCPCS: 36415; 36569; 36600; 71010; 76700; 76937; 80048; 80053; 80076; 80202; 81001; 81003; 81050; 82248; 82270; 82550; 82565; 82575; 82607; 82728; 82746; 82803; 82962; 82977; 83540; 83550; 83605; 83615; 83735; 83880; 84100; 84133; 84156; 84238; 84300; 84484; 84550; 85007; 85025; 85044; 85060; 85384; 85610; 85611; 85651; 85730; 86140; 86706; 86707; 86803; 86850; 86900; 86901; 86920; 86927; 87040; 87070; 87081; 87086; 87181; 87205; 89050; 93005; 93306; 93925; 93970; 94002; 94003; 94150; 94640; 94664; 99285; C9399; J2250; J2405; J7620; J8499; S0077